=== PATIENT | female | born 1965 | race Caucasian/White ===

== ENCOUNTER 2018-03-11 13:33 | Emergency (ER) | payer MEDICAID, SELFPAY ==
[2018-03-11 13:34] VITALS: BP 138/77; PULSE 63; RESP 16; TEMP 36.5; O2SAT 95; BMI 48.9
--- NOTE | 2018-03-11 13:49 | RAD_ITS ---
STUDY: X-RAY - PELVIS AND RIGHT HIP REASON FOR EXAM: Female, 52 years old. Right-sided hip pain after fall. TECHNIQUE: Radiological exam, hip, unilateral, with pelvis when performed; 2 or 3 views. COMPARISON: Radiographs of pelvis and right hip dated May 08, 2016. FINDINGS: There is a non-specific bowel gas pattern. Normal visualized soft tissue structures. The sacrum and iliac wings are obscured by bowel gas. Normal bilateral superior and inferior pubic rami. There are degenerative changes of the pubic symphysis with articular narrowing and sclerosis. Normal bilateral ischial tuberosities. There are osteoarthritic changes of the femoral head with marginal osteophyte formation. There is osteoarthritic spur formation of the acetabular rim. There is mild articular joint space narrowing of the hip. RAD/Hip 2-3 Views with Pelvis IMPRESSION: 1. Degenerative arthropathy of both hips. 2. No radiographic evidence for acute fracture. 3. If there is still clinical concern for acute fracture, follow-up bone scan maybe helpful in evaluating a healing radiographically occult fracture. Electronically Signed: Licha Zaldivar MD at 14:46 EDT , Service support ,
--- NOTE | 2018-03-11 13:55 | ED.DCSUM_ITS ---
- ER Visit Summary Date of Service: 03/11/18 Chief Complaint: Mechanical fall History of Present Illness: The patient is a 52 F resents to the emergency department after mechanical fall. Patient states she was getting out of the bathtub and lost her balance. She fell landing on her right hip. She did not strike her head. She denies loss of consciousness. She states that she was stuck in the towels and cannot stand up because of her positioning. Her son was able to help her stand. She has been able to bear weight, but has had rather significant pain. She does not take anticoagulants. She denies any other injury. Physical Examination: M is relatively unremarkable. Patient does have tenderness to palpation over the greater trochanter. There is no pain with logroll. Pulses are normal. Pelvis stable. GCS is 15. Head is normocephalic , atraumatic. Neck is nontender with full range of motion. Heart regular rate and rhythm. Lungs clear. Abdomen soft. Extremities show chronic edema. Test Results: [] Emergency Department Course and Treatment: The patient underwent plain films of the hip and pelvis. There is no evidence of acute fracture. The patient was given oral [place]. The patient is already on tramadol and antispasmodics at home. She will continue these. She is able to bear weight. She will be discharged home. Treatment Plan: [] Disposition: Discharge Impression: 1. Right hip contusion status post fall This note was generated with [employer] dictation software. It may contain incorrect words, spelling, and punctuation that were not noted in review of the chart prior to signing ED Disposition - Plan for ED Patient: Chief Complaint: Fall Instructions: ED Mechanical Fall, ED Contusion Hip Referrals: Cristal Wolf MD [Primary Care Provider] -
[2018-03-11] MEDS: HYDROcodone Bitartrate/Apap 5/325 Tablet PO (14:08)
[2018-03-11 14:41] VITALS: BP 146/74; PULSE 63; RESP 18; O2SAT 96
== END 2018-03-11 14:48 | disposition home or self-care (01) ==
PROVIDERS: Emergency Provider Emergency Medicine; Family Provider Internal Medicine; PCP Internal Medicine
DX: S70.01XA Contusion of right hip, initial encounter (principal); W18.2XXA Fall in (into) shower or empty bathtub, initial encounter; Y93.E1 Activity, personal bathing and showering; Y92.002 Bathroom of unspecified non-institutional (private) residence as the place of occurrence of the external cause; Y99.9 Unspecified external cause status; E11.9 Type 2 diabetes mellitus without complications; I10 Essential (primary) hypertension; E78.00 Pure hypercholesterolemia, unspecified
CPT/HCPCS: 73502; 99282

== ENCOUNTER 2018-04-14 13:32 | Emergency (ER) | payer MEDICAID, SELFPAY ==
[2018-04-14 13:34] VITALS: BP 150/80; PULSE 72; RESP 16; TEMP 36.1; O2SAT 95; BMI 53.5
--- NOTE | 2018-04-14 14:07 | ED.DCSUM_ITS ---
- ER Visit Summary Date of Service: 04/14/18 Chief Complaint: [] Migraine headache History of Present Illness: The patient is a 52 F [] has a long history of migraine headaches she gets for the last week she has been suffering from a migraine headache typical of her usual but usually her's symptoms and headaches resolved with her nadolol and other home medications this 1 has not. She has had no fever no cough no runny nose no neck stiffness no numbness weakness paresthesias she does report that about a week ago she had a dizzy spell that resolved. She has had extensive prior evaluation for headaches including multiple brain images visits with headache specialist she has never been told she has a brain tumor or brain aneurysm she has COPD with stable and other than the headache she states she feels at her baseline Physical Examination: [] Her vital signs are within normal range she is in no distress her head exams unremarkable cranial nerve facial exam HEENT exam are negative the neck is very supple the lungs are clear the heart tones are normal the abdomen is soft nontender she is a very large woman abdomen shows no findings upper lower extremities are unremarkable cranial nerves motor exam are negative her NIH is 0 Test Results: [] Emergency Department Course and Treatment: [] Long conversation the patient the family I explained her we could obtain a CT brain imaging for life-threatening cause of the headache she declined that much she simply wants to be treated for the headache she was given morphine Zofran and she will follow with her family physicians I further explained her if she feels of these headaches are becoming more frequent and less responsive to oral home meds she should discuss with her physicians further management options and potential referral to neurology and she will do so Treatment Plan: [] Disposition: [] Home stable Impression: [] migraine headache by history This note was generated with [employer] dictation software. It may contain incorrect words, spelling, and punctuation that were not noted in review of the chart prior to signing ED Disposition - Plan for ED Patient: Chief Complaint: Headache Referrals: Cristal Wolf MD [Primary Care Provider] -
[2018-04-14] MEDS: Ondansetron ODT 4 MG Tablet PO (14:09)
[2018-04-14] MEDS: morphine 10 MG/ML Syringe IM (14:09)
--- NOTE | 2018-04-14 14:09 | ED.DEP ---
ED Disposition - Plan for ED Patient: Chief Complaint: Headache Instructions: ED Headache Migraine, ED Cephalgia Unspecified Referrals: Cristal Wolf MD [Primary Care Provider] -
[2018-04-14 14:45] VITALS: BP 150/94; PULSE 68; RESP 18; O2SAT 99
== END 2018-04-14 14:47 | disposition home or self-care (01) ==
LOC: ED 13:51
PROVIDERS: Emergency Provider Emergency Medicine; Family Provider Internal Medicine; PCP Internal Medicine
DX: G43.909 Migraine, unspecified, not intractable, without status migrainosus (principal); J44.9 Chronic obstructive pulmonary disease, unspecified
CPT/HCPCS: 99282

== ENCOUNTER 2018-04-17 17:07 | Emergency (ER) | payer MEDICAID, SELFPAY ==
[2018-04-17 17:08] VITALS: BP 168/100; PULSE 69; RESP 16; TEMP 36.8; O2SAT 97; BMI 53.6
--- NOTE | 2018-04-17 17:24 | CT_ITS ---
STUDY: CT BRAIN WITHOUT CONTRAST REASON FOR EXAM: Female, 52 years old. Status post fall blurry vision RADIATION DOSAGE (If Supplied By Facility): CTDIvol = ( 44.99 ) mGy, DLP = ( 796.11 ) mGycm TECHNIQUE: Transaxial CT imaging of the brain was performed without administration of intravenous contrast material. Individualized dose optimization techniques were used for this CT. COMPARISON: None. FINDINGS: Normal soft tissue structures. Normal calvarium. Normal size ventricles and extra-axial spaces for the patient's age. Normal white matter tracts of the cerebral hemispheres. Normal basal ganglia and thalami. Normal brainstem. Normal cerebellum. There are no findings of an acute ischemic infarction. Normal visualized paranasal sinuses. There is a rim of hyperdensity in the left side temporal region seen only on one view likely represents artifact rather than subdural hemorrhage. This is seen on image #12 of the axial views. CT/Brain/Head without Contrast IMPRESSION: There is a rim of hyperdensity in the left temporal extra-axial region which may represent a small subdural hematoma versus summation artifact. Given clinical history recommend short-term interval follow-up study. There is no significant associated edema. N.B. : The above information has been verbally conveyed by Edel Gallegos MD to , Covering Physician, on 04/17/2018 17:54:27 (ET). Electronically Signed: Edel Gallegos MD at 17:47 EDT Tel , Service support , N.B. : The above information has been verbally conveyed by Edel Gallegos MD to , Covering Physician, on 04/17/2018 17:54:27 (ET).
[2018-04-17] MEDS: Acetaminophen 500 MG Tablet 1000 MG PO (17:52)
[2018-04-17 19:07] VITALS: BP 92/81; RESP 18; O2SAT 98
[2018-04-17 20:41] LABS: Absolute Lymphocyte Count 0.83 X10^3/ul (0.83-4.51); Absolute Neutrophil Count 3.8 X10^3/uL (2.0-7.7); Hematocrit 35.6 % (37-47); Hemoglobin 11.2 g/dl (12.0-15.0); Lymphocyte # 0.83 X10^3/ul (4.0); Lymphocyte % 16.2 % (19-41); Mean Corp Hgb Conc 31.5 g/gl (32-36); Mean Corpuscular Hgb 25.5 pg (27.0-32.0); Mean Corpuscular Volume 81.1 fL (81-99); Mean Platelet Vol. 8.9 fl (6.2-12.0); Monocyte# 0.46 X10^3/uL; Neutrophil # 3.83 X10^3/uL (2.7-7.7); Neutrophil % 74.6 % (47-70); Platelet Count 133 K/mm3 (150-450); RBC Distribution Width CV 15.8 % (11.6-14.6); RBC Distribution Width SD 47.4 fl (35.1-43.9); Red Blood Count 4.39 M/mm3 (4.2-5.4); White Blood Count 5.1 K/mm3 (4.4-11.0)
[2018-04-17 20:48] LABS: POSITIVE COUNT NO; POSITIVE DIFFERENTIAL NO; POSITIVE MORPHOLOGY NO
[2018-04-17 20:52] LABS: International Normalized Ratio 1.1; Partial Thromboplast Time 30.1 Seconds (24.1-36.2); Prothrombin Time (Protime)PT. 13.9 SECONDS (11.7-14.9)
[2018-04-17 20:56] LABS: Anion Gap 8 (5-15); BUN 14 mg/dL (7-18); BUN/Creat Ratio 19.2 RATIO (10-20); Calcium,Total 8.7 mg/dL (8.5-10.1); Chloride 102 mmol/L (98-107); Creatinine, Serum 0.73 mg/dL (0.55-1.02); EST Glomerular Filtration Rate 88 mL/min (>60); Est Glom Filt Rate - Afr Amer 107 mL/min (>60); Estimated Creatinine Clearance 79.28 ml/min; Glucose 147 mg/dL (74-106); Sodium Level 138 mmol/L (136-145)
[2018-04-17 21:00] VITALS: PULSE 71; RESP 16; O2SAT 97
--- NOTE | 2018-04-17 21:04 | ED.VISSUMM ---
- ER Visit Summary Date of Service: 04/17/18 Chief Complaint: Head injury History of Present Illness: The patient is a 52 F who states that yesterday she hit the left frontal aspect of her head on the car door. No loss of consciousness. Patient states she continues to have headache and double vision. She states that at times she has felt confused. She is not on any blood thinners. There is been no vomiting. Physical Examination: Afebrile vital signs are stable Gen: Well-nourished well-developed Head: Normocephalic infraorbital contusion noted on the left Eyes: Perrl EOMI ENT: TMs clear no rhinorrhea moist mucous membranes Neck: Supple no lymphadenopathy no JVD nontender CVS: Regular rate rhythm no murmurs normal S1-S2 Respiratory: No distress clear to auscultation bilaterally chest nontender Abdomen: Soft nontender nondistended normal bowel sounds no masses Back: Nontender Extremity: Nontender no edema Skin: Normal color no rash Neuro: alert orientated ?3 CN II-XII intact normal strength sensation reflexes gait cerebellar Psych: Normal affect normal mood Test Results: Coags normal. CT the head demonstrated a possible left temporal subdural versus artifact. Emergency Department Course and Treatment: Patient tells me she has had an MRI before. MRI is available to do 1. They took her to MRI and the patient was unable to tolerate the MRI due to claustrophobia. Patient requests transfer to [facility] as she does not wish to go to [facility]. I spoke with the emergency room there and they will evaluate the patient when she gets there. Impression: 1. Concussion 2. Periorbital contusion 3. Possible subdural hematoma This note was generated with [employer] dictation software. It may contain incorrect words, spelling, and punctuation that were not noted in review of the chart prior to signing ED Disposition - Plan for ED Patient: Chief Complaint: Head Injury Referrals: Cristal Wolf MD [Primary Care Provider] -
--- NOTE | 2018-04-17 21:07 | ED.DCSUM_ITS ---
- ER Visit Summary Date of Service: 04/17/18 Chief Complaint: Head injury History of Present Illness: The patient is a 52 F who states that yesterday she hit the left frontal aspect of her head on the car door. No loss of consciousness. Patient states she continues to have headache and double vision. She states that at times she has felt confused. She is not on any blood thinners. There is been no vomiting. Physical Examination: Afebrile vital signs are stable Gen: Well-nourished well-developed Head: Normocephalic infraorbital contusion noted on the left Eyes: Perrl EOMI ENT: TMs clear no rhinorrhea moist mucous membranes Neck: Supple no lymphadenopathy no JVD nontender CVS: Regular rate rhythm no murmurs normal S1-S2 Respiratory: No distress clear to auscultation bilaterally chest nontender Abdomen: Soft nontender nondistended normal bowel sounds no masses Back: Nontender Extremity: Nontender no edema Skin: Normal color no rash Neuro: alert orientated ?3 CN II-XII intact normal strength sensation reflexes gait cerebellar Psych: Normal affect normal mood Test Results: Coags normal. CT the head demonstrated a possible left temporal subdural versus artifact. Emergency Department Course and Treatment: Patient tells me she has had an MRI before. MRI is available to do 1. They took her to MRI and the patient was unable to tolerate the MRI due to claustrophobia. Patient requests transfer to [facility] as she does not wish to go to [facility]. I spoke with the emergency room there and they will evaluate the patient when she gets there. Impression: 1. Concussion 2. Periorbital contusion 3. Possible subdural hematoma This note was generated with [employer] dictation software. It may contain incorrect words, spelling, and punctuation that were not noted in review of the chart prior to signing ED Disposition - Plan for ED Patient: Chief Complaint: Head Injury Referrals: Cristal Wolf MD [Primary Care Provider] -
[2018-04-17 21:41] VITALS: BP 155/89; PULSE 74; RESP 18; O2SAT 98
== END 2018-04-17 22:03 | disposition short-term general hospital (02) ==
LOC: ED 17:57
PROVIDERS: Emergency Provider Emergency Medicine; Family Provider Internal Medicine; PCP Internal Medicine
DX: S06.0X0A Concussion without loss of consciousness, initial encounter (principal); S00.12XA Contusion of left eyelid and periocular area, initial encounter; S06.5X0A Traumatic subdural hemorrhage without loss of consciousness, initial encounter; W22.8XXA Striking against or struck by other objects, initial encounter; Y93.9 Activity, unspecified; Y92.9 Unspecified place or not applicable; E66.9 Obesity, unspecified; J44.9 Chronic obstructive pulmonary disease, unspecified; K21.9 Gastro-esophageal reflux disease without esophagitis; E11.9 Type 2 diabetes mellitus without complications; I10 Essential (primary) hypertension; F31.9 Bipolar disorder, unspecified; Z90.710 Acquired absence of both cervix and uterus; Z79.84 Long term (current) use of oral hypoglycemic drugs; Z79.899 Other long term (current) drug therapy
CPT/HCPCS: 70450; 80048; 85025; 85610; 85730; 99284; A4216

== ENCOUNTER 2018-05-29 12:24 | Emergency (ER) | payer MEDICAID, SELFPAY ==
[2018-05-29 12:25] VITALS: BP 166/111; PULSE 81; RESP 18; TEMP 37.1; O2SAT 98; BMI 52.7
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
--- NOTE | 2018-05-29 13:51 | RAD_ITS ---
STUDY: X-RAY CHEST REASON FOR EXAM: Female, 52 years old. Nonproductive cough TECHNIQUE: PA and lateral views of the chest. COMPARISON: 09/10/2017 FINDINGS: Stable chronic elevation of the right hemidiaphragm There are interstitial fibrotic changes of the lungs. There is no demonstrated pleural abnormality. Normal size heart. Normal mediastinum and keli. Normal visualized pulmonary arteries. Normal visualized aortic arch and descending thoracic aorta. There are diffuse degenerative changes of the visualized thoracic spine. There is degenerative osteoarthritis of the bilateral shoulders. There is no demonstrated abnormality of the visualized soft tissue structures of the upper abdomen. RAD/Chest PA and Lateral IMPRESSION: Chronic interstitial changes, no superimposed acute pulmonary process, no significant interval change Electronically Signed: Akshat Roth MD at 14:07 EDT , Service support ,
[2018-05-29 13:55] LABS: Absolute Lymphocyte Count 0.84 X10^3/ul (0.83-4.51); Absolute Neutrophil Count 4.1 X10^3/uL (2.0-7.7); Hematocrit 38.8 % (37-47); Hemoglobin 12.1 g/dl (12.0-15.0); Lymphocyte # 0.84 X10^3/ul (4.0); Lymphocyte % 15.5 % (19-41); Mean Corp Hgb Conc 31.2 g/gl (32-36); Mean Corpuscular Hgb 26.1 pg (27.0-32.0); Mean Corpuscular Volume 83.6 fL (81-99); Mean Platelet Vol. 9.2 fl (6.2-12.0); Monocyte# 0.46 X10^3/uL; Monocyte% 8.5 % (0-10); Neutrophil % 75.8 % (47-70); Platelet Count 164 K/mm3 (150-450); RBC Distribution Width CV 15.4 % (11.6-14.6); RBC Distribution Width SD 46.7 fl (35.1-43.9); Red Blood Count 4.64 M/mm3 (4.2-5.4); White Blood Count 5.4 K/mm3 (4.4-11.0)
[2018-05-29 13:56] LABS: POSITIVE COUNT NO; POSITIVE DIFFERENTIAL NO; POSITIVE MORPHOLOGY NO
[2018-05-29 14:19] LABS: Lactic Acid 1.5 mmol/L (0.4-2.0)
[2018-05-29 14:22] LABS: ALB/GLOB Ratio 0.9 RATIO (0.9-2.4); AST(SGOT) 22 U/L (15-37); Alanine Aminotransfer ALT/SGPT 40 U/L (13-56); Albumin, Serum 3.5 g/dL (3.2-5.0); Alkaline Phosphatase 65 U/L (45-117); Anion Gap 8 (5-15); BUN 12 mg/dL (7-18); Chloride 100 mmol/L (98-107); Creatinine, Serum 0.75 mg/dL (0.55-1.02); EST Glomerular Filtration Rate 86 mL/min (>60); Est Glom Filt Rate - Afr Amer 104 mL/min (>60); Estimated Creatinine Clearance 77.16 ml/min; Globulin 3.9 g/dL (2.2-4.2); Glucose 173 mg/dL (74-106); Potassium 4.3 mmol/L (3.5-5.1); Protein, Total 7.4 g/dL (6.4-8.2); Sodium Level 138 mmol/L (136-145)
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
[2018-05-29 15:45] VITALS: BP 141/76; PULSE 68; RESP 15; O2SAT 98
== END 2018-05-29 15:45 | disposition home or self-care (01) ==
PROVIDERS: Emergency Provider Emergency Medicine; Family Provider Internal Medicine; PCP Internal Medicine
DX: L03.116 Cellulitis of left lower limb (principal); A49.01 Methicillin susceptible Staphylococcus aureus infection, unspecified site; E66.9 Obesity, unspecified; E11.9 Type 2 diabetes mellitus without complications; I10 Essential (primary) hypertension; I50.9 Heart failure, unspecified; M79.7 Fibromyalgia; F32.9 Major depressive disorder, single episode, unspecified; F41.9 Anxiety disorder, unspecified
CPT/HCPCS: 36415; 71046; 73590; 80053; 83605; 85025; 87040; 99283; J7030

== ENCOUNTER 2018-06-27 16:05 | Emergency (ER) | payer MEDICAID, SELFPAY ==
[2018-06-27 16:07] VITALS: PULSE 69; RESP 16; TEMP 37.1; O2SAT 100; BMI 53.4
[2018-06-27 16:08] VITALS: BP 174/106
[2018-06-27 16:24] VITALS: BP 189/97
--- NOTE | 2018-06-27 16:42 | RAD_ITS ---
STUDY: X-RAY CHEST REASON FOR EXAM: Female, 52 years old. History of COPD. Shortness of breath with exertion. TECHNIQUE: PA and lateral views of the chest. COMPARISON: May 29, 2018. FINDINGS: There is persistent elevation of the right hemidiaphragm. Minimal atelectatic changes at both lung bases. There is no new mass or infiltrate. There is no demonstrated pleural abnormality. Normal size heart. Normal mediastinum and keli. Normal visualized pulmonary arteries. There is minimal atherosclerotic calcification of the aortic arch with tortuosity. There are diffuse degenerative changes of the visualized thoracic spine. There is degenerative osteoarthritis of the bilateral shoulders. There is no demonstrated abnormality of the visualized soft tissue structures of the upper abdomen. RAD/Chest PA and Lateral IMPRESSION: Elevated right hemidiaphragm with bibasilar atelectasis. There is no major interval change. Electronically Signed: Duane Riggs DO at 17:12 EDT Tel [phone], Service support ,
[2018-06-27 17:09] VITALS: BP 185/103; PULSE 69; RESP 16; O2SAT 97
[2018-06-27] MEDS: Ipratropium/Albuterol Sulfate 3 ML AMPUL.NEB INHALATION (17:22)
[2018-06-27] MEDS: Albuterol 2.5 MG/3 ML VIAL.NEB. INHALATION ×3 (17:22→17:23)
[2018-06-27] MEDS: MethylPREDNISolone 125 MG/2 ML Vial IV (17:23)
[2018-06-27 17:25] VITALS: PULSE 75; RESP 21; O2SAT 98
[2018-06-27 17:38] LABS: Absolute Lymphocyte Count 0.99 X10^3/ul (0.83-4.51); Absolute Neutrophil Count 3.8 X10^3/uL (2.0-7.7); Hematocrit 38.1 % (37-47); Hemoglobin 12.2 g/dl (12.0-15.0); Lymphocyte # 0.99 X10^3/ul (4.0); Lymphocyte % 18.9 % (19-41); Mean Corpuscular Hgb 27.1 pg (27.0-32.0); Mean Corpuscular Volume 84.7 fL (81-99); Mean Platelet Vol. 9.3 fl (6.2-12.0); Monocyte% 9.5 % (0-10); Neutrophil # 3.76 X10^3/uL (2.7-7.7); Neutrophil % 71.6 % (47-70); Platelet Count 129 K/mm3 (150-450); RBC Distribution Width CV 15.4 % (11.6-14.6); RBC Distribution Width SD 47.3 fl (35.1-43.9); White Blood Count 5.3 K/mm3 (4.4-11.0)
[2018-06-27 17:41] LABS: POSITIVE COUNT NO; POSITIVE DIFFERENTIAL NO; POSITIVE MORPHOLOGY NO
[2018-06-27 18:06] LABS: Anion Gap 9 (5-15); BUN 13 mg/dL (7-18); BUN/Creat Ratio 15.6 RATIO (10-20); Calcium,Total 8.7 mg/dL (8.5-10.1); Chloride 104 mmol/L (98-107); Creatinine, Serum 0.83 mg/dL (0.55-1.02); EST Glomerular Filtration Rate 76 mL/min (>60); Est Glom Filt Rate - Afr Amer 91 mL/min (>60); Estimated Creatinine Clearance 69.72 ml/min; Glucose 221 mg/dL (74-106); Potassium 4.1 mmol/L (3.5-5.1); Sodium Level 142 mmol/L (136-145)
--- NOTE | 2018-06-27 18:11 | ED.DCSUM_ITS ---
- ER Visit Summary Date of Service: 06/27/18 Chief Complaint: COPD exacerbation History of Present Illness: The patient is a 52 F with a history of COPD, on 2 L of oxygen at nighttime presents with 3 days of cough productive of yellow sputum and increased wheezing. She denies chest pain or lower extremity swelling/pain. Denies recent travel or immobilization. She believes that this flareup is triggered by a respiratory infection. She states that she feels fine when she is at rest but she has increased wheezing with exertion. No diaphoresis or other atypical cardiac type symptoms. Current severity is minimal because she is at rest Physical Examination: Vitals are essentially within normal limits except for slight hypertension. Pulse oximetry is 97% on room air. She is not tachycardic. She does have wheezing in all lung hester but is not in significant respiratory distress. Abdomen is soft and nontender. No tenderness along the lower extremity venous system, swelling, or palpable cords. Test Results: Chest x-ray is negative for infiltrate. Labs are essentially within normal limits. She is slightly hypertensive but her other vital signs are within normal limits. She has no headache or chest pain related to this and her creatinine is normal. No evidence of endorgan damage. Neurologic exam is normal. Emergency Department Course and Treatment: He was given IV Solu-Medrol and breathing treatments. On reexamination she feels at baseline. She is not symptomatic with exertion. She feels well enough to go home. She will be placed on doxycycline because she has had a change in her sputum production pattern as well as prednisone and follow-up closely with her doctor. I also asked her to keep a diary of her blood pressures at home and address this with her doctor. She will return if she has any worse. Treatment Plan: Oral antibiotics and steroids Disposition: Home stable condition Impression: Initial encounter COPD exacerbation secondary to lower respiratory tract infection This note was generated with [employer] dictation software. It may contain incorrect words, spelling, and punctuation that were not noted in review of the chart prior to signing ED Disposition - Plan for ED Patient: Chief Complaint: Shortness of Breath Diagnosis: COPD Instructions: ED COPD Flare Prescriptions: Prednisone [Deltasone] 40 mg PO DAILY #10 tablet Doxycycline Monohydrate 100 mg PO BID #20 capsule Referrals: Cristal Wolf MD [Primary Care Provider] - 1 Day
--- NOTE | 2018-06-27 18:13 | ED.DCSUM_ITS ---
- ER Visit Summary Date of Service: 06/27/18 Chief Complaint: [] History of Present Illness: The patient is a 52 F [] Physical Examination: [] Test Results: [] Emergency Department Course and Treatment: [] Treatment Plan: [] Disposition: [] Impression: [] This note was generated with [employer] dictation software. It may contain incorrect words, spelling, and punctuation that were not noted in review of the chart prior to signing ED Disposition - Plan for ED Patient: Chief Complaint: Shortness of Breath Diagnosis: COPD Instructions: ED COPD Flare Prescriptions: Prednisone [Deltasone] 40 mg PO DAILY #10 tablet Doxycycline Monohydrate 100 mg PO BID #20 capsule Referrals: Cristal Wolf MD [Primary Care Provider] - 1 Day
[2018-06-27 18:24] VITALS: BP 190/97; PULSE 71; RESP 18; O2SAT 97
[2018-06-27] MEDS: Doxycycline 100 MG CAPSULE PO (18:25)
--- NOTE | 2018-06-28 16:09 | CM.ED ---
ED CALLBACK: Follow-up call placed to patient. Voicemail left with return contact information.
--- NOTE | 2018-06-28 16:30 | CM.ED ---
Patient returned call stating that she has had a headache all day. She states that she was awake all night and forgot to take her blood pressure medicine in the morning. Her most recent blood pressure is 189/114. She did take her blood pressure medication at 1600 and called her PCP. According to patient, her PCP recommended her to come to ED for evaluation. The patient states that she is afraid to be admitted because her employer told her she would lose her job if she's hospitalized again. I strongly encouraged the patient to come to ED for evaluation and treatment. We discussed that this does not mean she will necessarily need to be admitted and that she is always able to leave at any time. Patient states understanding and that she would like to wait and see if her blood pressures lower now that she's taken her medication. I, once again, encouraged the patient to come to ED immediately. I informed the patient that I will be available for callback until 1730, should she have any questions or updates. Patient states understanding. Patient states that she will wait, but if her blood pressures remain elevated or rise she will come back to the ED.
--- NOTE | 2018-06-29 09:28 | CM.ED ---
Call placed to patient this morning, 06-29-18, to see how patient is feeling, blood pressures, symptoms. No answer at this time. I left a voicemail requesting patient call me back, including return contact information.
--- NOTE | 2018-06-29 09:35 | CM.ED ---
Patient returned call stating that she plans to come to the ED today. She states that yesterday her blood pressure did go down to 156/98 and her headache subsided. However, she states that today she is developing a headache again and her blood pressure is now 189/110. Patient states, I can just tell that something is wrong. Patient states that if she needs to be admitted to the hospital she is agreeable.
== END 2018-06-27 18:25 | disposition home or self-care (01) ==
PROVIDERS: Emergency Provider Emergency Medicine; Family Provider Internal Medicine; PCP Internal Medicine
DX: J44.1 Chronic obstructive pulmonary disease with (acute) exacerbation (principal); J44.0 Chronic obstructive pulmonary disease with (acute) lower respiratory infection; J98.8 Other specified respiratory disorders; E11.9 Type 2 diabetes mellitus without complications; I10 Essential (primary) hypertension; E78.00 Pure hypercholesterolemia, unspecified; F31.9 Bipolar disorder, unspecified; Z99.81 Dependence on supplemental oxygen
CPT/HCPCS: 71046; 80048; 85025; 93005; 94640; 99285; A4216

== ENCOUNTER 2018-06-29 14:49 | Emergency (ER) | payer MEDICAID, SELFPAY ==
[2018-06-29] VITALS (7 sets, daily range): BP systolic 152–171; BP diastolic 75–96; PULSE 64–72; RESP 18–24; TEMP 36.5; O2SAT 94–96; BMI 54.0
--- NOTE | 2018-06-29 15:07 | CT_ITS ---
STUDY: CT BRAIN WITHOUT CONTRAST REASON FOR EXAM: Female, 52 years old. Headache RADIATION DOSAGE (If Supplied By Facility): CTDIvol = ( 44.99 ) mGy, DLP = ( 812.98 ) mGycm TECHNIQUE: Transaxial CT imaging of the brain was performed without administration of intravenous contrast material. Individualized dose optimization techniques were used for this CT. COMPARISON: 04/17/2018 FINDINGS: There is no acute bleed or infarct. There are normal white matter tracts. The ventricles are normal in configuration. There is no hydrocephalus. The visualized paranasal sinuses are clear. The mastoid air cells are well aerated. There is no skull fracture. CT/Brain/Head without Contrast IMPRESSION: No acute intracranial abnormality. Electronically Signed: Chace Queen, at 17:11 EDT Tel , Service support ,
--- NOTE | 2018-06-29 15:13 | ED.VIS.GEN ---
History of Present Illness Chief Complaint: Hypertension Informant: Patient Onset: Days - several Context: Gradual Onset Timing: Continuous Quality: ache Location: bifrontal headache Current Severity: Moderate Maximum Severity: Moderate Worsened by: nothing Relieved by: nothing Associated Symptoms: blurry vision, chest tightness, copd sx Narrative: Patient states she has been having a headache for several days, now having blurry vision with that. She has history of migraines but states this does not feel like a migraine. It is mostly bifrontal. Seems to be worse when her blood pressure is high, she has detected it into the 200s last couple days. Earlier today it was 148/114. She states her systolic is usually in the 120s. She has been compliant with her blood pressure medications. She was seen here 2 days ago for a COPD exacerbation, states that she is not a whole lot better, her chest tightness gets better with her albuterol inhalers. She was placed on doxycycline and prednisone and her symptoms seem worse since then. Blood sugars been in the 200s and she is urinating more frequently, that is high for her. - Past Medical History (1) HTN (hypertension) Status: Chronic (2) ADHD (attention deficit hyperactivity disorder) Status: Chronic (3) Benign hypertension Status: Chronic (4) Bipolar disorder Status: Chronic (5) COPD Status: Chronic (6) GERD (gastroesophageal reflux disease) Status: Chronic (7) Migraines Status: Chronic (8) Pain syndrome, chronic Status: Chronic (9) Stasis dermatitis of both legs Status: Chronic (10) Type II diabetes mellitus Status: Chronic (11) Venous insufficiency of both lower extremities Status: Chronic (12) Obstructive sleep apnea Status: Chronic Past Medical History - Allergies and Home Meds Allergies/Adverse Reactions: Allergies cefazolin sodium [From [facility]] Allergy (Verified 06/29/18 14:51) Hives Penicillins Allergy (Verified 06/29/18 14:51) Hives Primary Care Physician: Cristal Wolf MD [Primary Care Provider] - Surgical History: herniorrhaphy, hysterectomy, - - tubes in ears, knee scopes, dr malik for left anterior leg wound, hernia repair, carpal tunnel surgery bilateral Smoking Status: Never smoker - Family History Maternal Family History: Family History (Last Updated 02/18/18 @ 13:39 by Vida Gunn) Other Hypertension Kidney disease Family History: Reports: Heart Disease, Hypertension, Stroke Paternal Family History: Family History (Last Updated 02/18/18 @ 13:39 by Vida Gunn) Other Hypertension Kidney disease Family History: Reports: Hypertension, Stroke, - Review of Systems All systems negative except as indicated Eyes: Reports: Blurred Vision - bilaterally Cardiovascular: Reports: Chest pain Respiratory: Reports: Dyspnea - wheezing, Cough, Sputum Gastrointestinal: Denies: Abdominal pain, Nausea, Vomiting, Diarrhea Genitourinary: Reports: Frequency. Denies: Dysuria, Hematuria Musculoskeletal: Reports: Myalgias, Swelling - chronic BLE. Denies: Extremity Pain Neurological: Reports: Headache. Denies: Weakness, Parasthesia, Numbness Physical Exam Vital Signs/Narrative: Vital Signs Temp Pulse Resp BP Pulse Ox 06/29/18 14:51 97.7 F L 72 18 171/94 H 94 Inital Vital Signs reviewed: Yes General: Well nourished, Well developed, Obese, - - nad Head: Normocephalic, Atraumatic Eyes: Perrl, EOMI ENT: Moist mucous membranes, No rhinorrhea Neck: Supple, Nontender, No JVD Cardiovascular: Regular rate, Regular rhythm, No murmurs Respiratory: No distress, CTA bilaterally, Chest nontender, Diminished - throughout, symmetrically Abdomen: Soft, Nontender, Nondistended, Normal bowel sounds Back: Nontender, Normal Inspection Extremities: Nontender, Edema - BLE w/ dark discoloration distal legs, c/w chronic stasis dermatitis Skin: Normal color, No rash Neurological: Alert, Oriented x3, Cranial nerves II-XII grossly intact, Normal Strength, Normal Sensation Psychological: Normal affect Diagnostic/Tx/Re-eval Impressions Brain CT 06/29/18 15:07 IMPRESSION: No acute intracranial abnormality. Electronically Signed: Chace Queen, at 17:11 EDT Tel , Service support , Chest X-Ray 06/29/18 15:20 IMPRESSION: Elevated stable elevation of the right hemidiaphragm with overlying atelectasis. Otherwise, clear lungs. Electronically Signed: Chace Queen, at 16:52 EDT Tel , Service support , 06/29/18 15:07 Brain/Head without Contrast [CT] Stat 06/29/18 15:20 Chest 1 View (Portable) [RAD] Stat Laboratory Results 06/29/18 06/29/18 06/29/18 Range/Units 16:20 16:20 16:20 WBC 7.1 (4.4-11.0) K/mm3 RBC 4.43 (4.2-5.4) M/mm3 Hgb 11.8 L (12.0-15.0) g/dl Hct 37.6 (37-47) % MCV 84.9 (81-99) fL MCH 26.6 L (27.0-32.0) pg MCHC 31.4 L (32-36) g/gl RDW 15.6 H (11.6-14.6) % RDW Differential 48.2 H (35.1-43.9) fl Plt Count 156 (150-450) K/mm3 MPV 9.4 (6.2-12.0) fl Immature Gran % (Auto) 0.100 (0.0-0.9) % Neut % (Auto) 71.3 H (47-70) % Lymph % (Auto) 20.6 (19-41) % [place] % (Auto) 7.9 (0-10) % Eos % (Auto) 0.0 (0-5) % Baso % (Auto) 0.1 (0-1) % Absolute Neuts (auto) 5.1 (2.0-7.7) X10^3/uL Absolute Lymphs (auto) 1.47 (0.83-4.51) X10^3/ul Total Counted Not Reportable Sodium 139 (136-145) mmol/L Potassium 4.0 (3.5-5.1) mmol/L Chloride 105 (98-107) mmol/L Carbon Dioxide 25.0 (21.0-32.0) mmol/L Anion Gap 9 (5-15) BUN 21 H (7-18) mg/dL Creatinine 0.81 (0.55-1.02) mg/dL Estim Creat Clear Calc 71.45 ml/min Est GFR (MDRD) Af Amer 94 (>60) mL/min Est GFR (MDRD) Non-Af 78 (>60) mL/min BUN/Creatinine Ratio 25.9 H (10-20) RATIO Glucose 189 H (74-106) mg/dL Calcium 8.8 (8.5-10.1) mg/dL Troponin I < 0.015 (<0.045) ng/mL Urine Color Yellow (Yellow) Urine Clarity Clear (Clear) Urine pH 6.0 (5.0 - 8.0) Ur Specific Hawley 1.020 (1.002-1.030) Urine Protein 15 H (Negative) mg/dl Urine Glucose (UA) Normal (Normal) mg/dl Urine Ketones 5 H (Negative) mg/dl Urine Occult Blood 25 H (Negative) /ul Urine Nitrite Negative (Negative) Urine Bilirubin Negative (Negative) mg/dL Urine Urobilinogen Normal (Normal) mg/dl Ur Leukocyte Esterase 25 H (Negative) /ul Urine RBC 0-5 SEEN (0-5) /hpf Urine WBC 0-5 SEEN (0-5) /hpf Ur Squamous Epith Cells 0 SEEN (5-10) /hpf Urine Bacteria 0 SEEN (None Seen) /hpf Urine Mucus 0 SEEN (<or=2+) /hpf POC Glucose (70-110) mg/dL 06/29/18 Range/Units 16:26 WBC (4.4-11.0) K/mm3 RBC (4.2-5.4) M/mm3 Hgb (12.0-15.0) g/dl Hct (37-47) % MCV (81-99) fL MCH (27.0-32.0) pg MCHC (32-36) g/gl RDW (11.6-14.6) % RDW Differential (35.1-43.9) fl Plt Count (150-450) K/mm3 MPV (6.2-12.0) fl Immature Gran % (Auto) (0.0-0.9) % Neut % (Auto) (47-70) % Lymph % (Auto) (19-41) % [place] % (Auto) (0-10) % Eos % (Auto) (0-5) % Baso % (Auto) (0-1) % Absolute Neuts (auto) (2.0-7.7) X10^3/uL Absolute Lymphs (auto) (0.83-4.51) X10^3/ul Total Counted Sodium (136-145) mmol/L Potassium (3.5-5.1) mmol/L Chloride (98-107) mmol/L Carbon Dioxide (21.0-32.0) mmol/L Anion Gap (5-15) BUN (7-18) mg/dL Creatinine (0.55-1.02) mg/dL Estim Creat Clear Calc ml/min Est GFR (MDRD) Af Amer (>60) mL/min Est GFR (MDRD) Non-Af (>60) mL/min BUN/Creatinine Ratio (10-20) RATIO Glucose (74-106) mg/dL Calcium (8.5-10.1) mg/dL Troponin I (<0.045) ng/mL Urine Color (Yellow) Urine Clarity (Clear) Urine pH (5.0 - 8.0) Ur Specific Hawley (1.002-1.030) Urine Protein (Negative) mg/dl Urine Glucose (UA) (Normal) mg/dl Urine Ketones (Negative) mg/dl Urine Occult Blood (Negative) /ul Urine Nitrite (Negative) Urine Bilirubin (Negative) mg/dL Urine Urobilinogen (Normal) mg/dl Ur Leukocyte Esterase (Negative) /ul Urine RBC (0-5) /hpf Urine WBC (0-5) /hpf Ur Squamous Epith Cells (5-10) /hpf Urine Bacteria (None Seen) /hpf Urine Mucus (<or=2+) /hpf POC Glucose 178 H (70-110) mg/dL - Rhythm Strip Rhythm Strip: Sinus Tach Rate: 65 Ectopy: None - EKG Initial EKG Interpretation: Sinus Rhythm, No Acute Injury Pattern, Inverted T-Waves - throughout precordium and inf, - - nml axis and intervals - Medical Decision Making Labs are unremarkable except for blood sugar 189 and mild prerenal azotemia, along with unremarkable urinalysis, chest x-ray, CT head. With bringing her blood pressure down to the 150s with a dose of clonidine, her headache is no different. It may not be related to her blood pressure, or the discomfort could be causing her blood pressure to be transiently elevated. Regardless, there is no evidence of endorgan damage. She developed some nausea which was successfully treated with Zofran. She will be discharged home but prior, we will treat her headache at her request with Reglan and a half dose of Toradol to see if that helps. Encouraged to follow-up with her doctor for recheck. ED Disposition - Plan for ED Patient: Disposition: Home or Assisted Living Chief Complaint: Hypertension Diagnosis: Accelerated hypertension, Cephalgia, Hyperglycemia due to type 2 diabetes mellitus Instructions: ED Hypertension Conf Out Of Control Referrals: Cristal Wolf MD [Primary Care Provider] - 3-5 Days
--- NOTE | 2018-06-29 15:20 | RAD_ITS ---
STUDY: X-RAY CHEST REASON FOR EXAM: Female, 52 years old. Chest pain TECHNIQUE: Frontal view of the chest COMPARISON: 06/27/2018. FINDINGS: There is stable elevation of the right hemidiaphragm with overlying atelectasis. The lungs are otherwise clear. There are no pleural effusions. There is no pneumothorax. The heart is normal in size. The visualized osseous structures are within normal limits. RAD/Chest 1 View (Portable) IMPRESSION: Elevated stable elevation of the right hemidiaphragm with overlying atelectasis. Otherwise, clear lungs. Electronically Signed: Chace Queen, at 16:52 EDT Tel , Service support ,
[2018-06-29] MEDS: cloNIDine HCl 0.1 MG Tablet PO (15:31)
[2018-06-29] MEDS: Ipratropium/Albuterol Sulfate 3 ML AMPUL.NEB INHALATION (15:36)
[2018-06-29 16:30] LABS: Absolute Lymphocyte Count 1.47 X10^3/ul (0.83-4.51); Absolute Neutrophil Count 5.1 X10^3/uL (2.0-7.7); Basophil# 0.01 X10^3/uL; Basophil% 0.1 % (0-1); Hematocrit 37.6 % (37-47); Hemoglobin 11.8 g/dl (12.0-15.0); Lymphocyte # 1.47 X10^3/ul (4.0); Lymphocyte % 20.6 % (19-41); Mean Corp Hgb Conc 31.4 g/gl (32-36); Mean Corpuscular Hgb 26.6 pg (27.0-32.0); Mean Corpuscular Volume 84.9 fL (81-99); Mean Platelet Vol. 9.4 fl (6.2-12.0); Monocyte# 0.56 X10^3/uL; Monocyte% 7.9 % (0-10); Neutrophil # 5.08 X10^3/uL (2.7-7.7); Neutrophil % 71.3 % (47-70); Platelet Count 156 K/mm3 (150-450); RBC Distribution Width CV 15.6 % (11.6-14.6); RBC Distribution Width SD 48.2 fl (35.1-43.9); Red Blood Count 4.43 M/mm3 (4.2-5.4); White Blood Count 7.1 K/mm3 (4.4-11.0)
[2018-06-29 16:35] LABS: Bedside Glucose 178 mg/dL (70-110)
[2018-06-29 16:36] LABS: POSITIVE COUNT NO; POSITIVE DIFFERENTIAL NO; POSITIVE MORPHOLOGY NO
[2018-06-29 16:48] LABS: Anion Gap 9 (5-15); BUN 21 mg/dL (7-18); BUN/Creat Ratio 25.9 RATIO (10-20); Calcium,Total 8.8 mg/dL (8.5-10.1); Chloride 105 mmol/L (98-107); Creatinine, Serum 0.81 mg/dL (0.55-1.02); EST Glomerular Filtration Rate 78 mL/min (>60); Est Glom Filt Rate - Afr Amer 94 mL/min (>60); Estimated Creatinine Clearance 71.45 ml/min; Glucose 189 mg/dL (74-106); Sodium Level 139 mmol/L (136-145)
[2018-06-29 18:11] LABS: Bacteria 0 SEEN /hpf (None Seen); Mucous, Urine 0 SEEN /hpf (<or=2+); Squamous Epithelial Cells - UA 0 SEEN /hpf (5-10)
[2018-06-29 18:26] LABS: Color, Urine Yellow (Yellow); Glucose, Dipstick Normal (Normal); Ketone-Dipstick 5 mg/dl (Negative); Leukocyte Esterase-Dipstick 25 /ul (Negative); Nitrite-Dipstick Negative (Negative); Occult Blood-Urine 25 /ul (Negative); Protein-Dipstick 15 mg/dl (Negative); Urine Bilirubin Dipstick Negative (Negative); Urine Clarity Clear (Clear); Urine Urobilinogen Normal (Normal)
[2018-06-29 18:36] LABS: Red Blood Cells-Urine 0-5 SEEN /hpf (0-5); White Blood Cells 0-5 SEEN /hpf (0-5)
[2018-06-29] MEDS: Ondansetron 4 MG/2 ML Vial IV (18:36)
[2018-06-29] MEDS: Ketorolac 15 MG/ML Vial IV (19:40)
[2018-06-29] MEDS: Metoclopramide 10 MG/2 ML Vial 5 MG IV (19:40)
== END 2018-06-29 20:08 | disposition home or self-care (01) ==
PROVIDERS: Emergency Provider Emergency Medicine; Family Provider Internal Medicine; PCP Internal Medicine
DX: I10 Essential (primary) hypertension (principal); R51 Headache; E11.65 Type 2 diabetes mellitus with hyperglycemia; E66.9 Obesity, unspecified; G47.33 Obstructive sleep apnea (adult) (pediatric); K21.9 Gastro-esophageal reflux disease without esophagitis; J44.9 Chronic obstructive pulmonary disease, unspecified; I87.2 Venous insufficiency (chronic) (peripheral); F90.9 Attention-deficit hyperactivity disorder, unspecified type
CPT/HCPCS: 70450; 71045; 80048; 81001; 82962; 84484; 85025; 93005; 94640; 99284; A4216; J2405

== ENCOUNTER 2018-07-07 13:09 | Inpatient (IN) | payer MEDICAID, SELFPAY ==
[2018-07-07] VITALS (7 sets, daily range): BP systolic 123–171; BP diastolic 71–92; PULSE 68–87; RESP 14–18; TEMP 36.4–37.6; O2SAT 92–98; BMI 53.4; BMI 54.8
[2018-07-07] MEDS: 0.9% Normal Saline 1,000 ML 150 ML IV (15:05)
[2018-07-07 15:27] LABS: Absolute Lymphocyte Count 0.91 X10^3/ul (0.83-4.51); Absolute Neutrophil Count 3.5 X10^3/uL (2.0-7.7); Lymphocyte # 0.91 X10^3/ul (4.0); Mean Corp Hgb Conc 30.6 g/gl (32-36); Mean Corpuscular Hgb 26.3 pg (27.0-32.0); Mean Corpuscular Volume 86.1 fL (81-99); Mean Platelet Vol. 9.7 fl (6.2-12.0); Monocyte# 0.42 X10^3/uL; Monocyte% 8.8 % (0-10); Neutrophil # 3.45 X10^3/uL (2.7-7.7); Platelet Count 147 K/mm3 (150-450); RBC Distribution Width CV 15.5 % (11.6-14.6); RBC Distribution Width SD 48.2 fl (35.1-43.9); Red Blood Count 4.18 M/mm3 (4.2-5.4); White Blood Count 4.8 K/mm3 (4.4-11.0)
[2018-07-07] MEDS: Morphine 4 MG/ML Syringe IV (15:27)
[2018-07-07] MEDS: Ondansetron 4 MG/2 ML Vial IV ×2 (15:27→21:10)
[2018-07-07 15:32] LABS: POSITIVE COUNT NO; POSITIVE DIFFERENTIAL NO; POSITIVE MORPHOLOGY NO
--- NOTE | 2018-07-07 15:39 | ED.VISSUMM ---
- ER Visit Summary Date of Service: 07/07/18 Chief Complaint: [Redness and swelling to both lower extremities] History of Present Illness: The patient is a 52 F [presents the emergency department with complaint of pain, redness, and swelling to both lower extremities. Patient states most of the discomfort is in the left leg. Patient has history of a chronic wound on the left leg that she has had for years that at times will open up and drain. Patient has had history of cellulitis that required admission for IV antibiotics. Patient states that last evening she had a fever up to 102. Patient's had chills and has felt hot and cold. Patient currently on doxycycline for history of COPD exacerbation.] Physical Examination: [HEENT-PERRLA, EOMI. Cranial nerves II through XII grossly intact. TMs clear. Mucous membranes moist. No adenopathy. Cardiovascular-regular rate and rhythm without murmur or ectopy Lungs-clear to auscultation, chest wall stable without crepitus or subcu emphysema Abdomen-normoactive bowel sounds, soft, nontender, no rebound or rigidity, no peritoneal signs. Extremities-intact ?4, normal range of motion, normal pulses, atraumatic]. Left lower extremity-patient is noted to have erythema and cellulitic changes involving the leg from just below the knee down to the foot. She has a chronic wound noted with us open area that seeping some serous fluid. Patient also has some faint erythema noted to the right lower extremity from the knee to the ankle. No lymphangitic streaking. Patient has normal pulses. Test Results: [CBC with differential obtained showed a white blood cell count of 4.8, hemoglobin 11, hematocrit 36, platelets 147. Chemistries pending.] Emergency Department Course and Treatment: [Patient was started on vancomycin as well as Unasyn.] Treatment Plan: [Admit for IV antibiotics] Disposition: [Admit] Impression: [Cellulitis bilateral lower extremities] This note was generated with evolso dictation software. It may contain incorrect words, spelling, and punctuation that were not noted in review of the chart prior to signing ED Disposition - Plan for ED Patient: Chief Complaint: Cellulitis Referrals: Cristal Wolf MD [Primary Care Provider] -
[2018-07-07 15:45] LABS: Anion Gap 5 (5-15); BUN 11 mg/dL (7-18); BUN/Creat Ratio 16.7 RATIO (10-20); Calcium,Total 8.4 mg/dL (8.5-10.1); Chloride 100 mmol/L (98-107); Creatinine, Serum 0.66 mg/dL (0.55-1.02); EST Glomerular Filtration Rate 99 mL/min (>60); Est Glom Filt Rate - Afr Amer 120 mL/min (>60); Estimated Creatinine Clearance 87.68 ml/min; Glucose 158 mg/dL (74-106); Potassium 4.5 mmol/L (3.5-5.1); Sodium Level 137 mmol/L (136-145)
[2018-07-07 15:57] LABS: Lactic Acid 2.2 mmol/L (0.4-2.0)
[2018-07-07] MEDS: DiphenhydrAMINE 50 MG/ML Syringe 25 MG IV (16:38)
--- NOTE | 2018-07-07 16:54 | PCM.HP.STD ---
Problem List (1) Cellulitis Status: Acute (2) HTN (hypertension) Status: Chronic (3) Bipolar disorder Status: Chronic (4) Migraines Status: Chronic (5) Stasis dermatitis of both legs Status: Chronic (6) Super obese Status: Chronic (7) Type II diabetes mellitus Status: Chronic (8) GERD (gastroesophageal reflux disease) Status: Chronic (9) COPD Status: Chronic History of Present Illness Date of Admission: 07/07/18 Chief Complaint: LLE swelling and pain The patient is a 52 year old F with a h/o of chronic venous stasis, previous LLE injury with chronic infections, DM2, HTN, Bipolar and migraines presents to the ER after 24 hours of increase redness, pain in her LLE as well as a fever to 102. She initially injured her LLE when she was helping to clear away trees years ago. Since she has had that leg have intermittent infections. She has only noticed that the leg was warm and painful yesterday, but she has noticed that the leg has been more swollen over the last few weeks. She has not been going to the wound clinic recently as she says her wound was healed, but yesterday she noticed some drainage though it is not draining now. In the ER she was given Vancomycin since she is allergic to PCN and cephalosporins. Past Medical History Past Medical History (Chronic Problems): Chronic Problems (Last Updated 02/18/18 @ 13:39 by Vida Gunn) HTN (hypertension) (Chronic) Pain syndrome, chronic (Chronic) Bipolar disorder (Chronic) Migraines (Chronic) Obstructive sleep apnea (Chronic) Stasis dermatitis of both legs (Chronic) Venous insufficiency of both lower extremities (Chronic) Super obese (Chronic) ADHD (attention deficit hyperactivity disorder) (Chronic) Benign hypertension (Chronic) Type II diabetes mellitus (Chronic) GERD (gastroesophageal reflux disease) (Chronic) COPD (Chronic) Open wound of left lower extremity (Chronic) Medical History: Medical History (Last Updated 02/18/18 @ 13:39 by Vida Gunn) Arthritis M19.90 Asthma J45.909 Back pain M54.9 COPD (chronic obstructive pulmonary disease) J44.9 Diabetes E11.9 Fatigue R53.83 Hemorrhoids K64.9 Knee pain M25.569 Migraines G43.909 HTN (hypertension) I10 Allergies cefazolin sodium [From [facility]] Allergy (Verified 08/18/18 13:11) Hives Penicillins Allergy (Verified 07/07/18 13:11) Hives Home Medications: Ambulatory Orders Medication Instructions Recorded Buspirone HCl 20 mg PO TID PRN PRN 03/05/17 Gabapentin [Neurontin] 1,200 mg PO TID 03/05/17 Nadolol [Corgard (Beta Torin)] 160 mg PO DAILY 03/05/17 Oxybutynin Chloride [Ditropan Xl] 15 mg PO QHS 03/05/17 Quetiapine Fumarate [Quetiapine 50 mg PO DAILY 03/05/17 Fumarate ER] Quetiapine Fumarate [Quetiapine 300 mg PO QHS 03/05/17 Fumarate ER] buPROPion XL [Wellbutrin Xl] 300 mg PO DAILY 03/05/17 Glimepiride [Amaryl] 40 mg PO BID 03/20/17 Lisinopril 20 mg PO QHS 03/20/17 divalproex 125 mg capsule,delayed 500 mg PO DAILY 02/18/18 release sprinkle omeprazole 10 mg capsule,delayed 10 mg PO DAILY 02/18/18 release valacyclovir 1 gram tablet 1,000 mg PO QDAY 02/18/18 Diazepam [Valium] 10 mg PO BID PRN PRN 03/11/18 Orphenadrine [Norflex ER] 100 mg PO BID PRN 03/11/18 traMADol [Ultram (G)] 100 mg PO Q6H PRN PRN 03/11/18 Albuterol Inhaler [Ventolin Hfa 2 puff INHALATION Q4H PRN PRN 05/29/18 (SP)] Doxycycline Monohydrate 100 mg PO BID #20 capsule 06/27/18 Surgical History: Surgical History (Last Updated 02/18/18 @ 13:39 by Vida Gunn) H/O hernia repair Z98.890, Z87.19 Hx of section Z98.891 Hx of hysterectomy Z90.710 Kidney stone N20.0 knee scope Surgical History: herniorrhaphy, hysterectomy, - - tubes in ears, knee scopes, dr malik for left anterior leg wound, hernia repair, carpal tunnel surgery bilateral Psychiatric History: Bipolar Lives: With Family Smoking Status: Never smoker Alcohol: None Drugs: None - *Family History Maternal Family History: Family History (Last Updated 02/18/18 @ 13:39 by Vida Gunn) Other Hypertension Kidney disease History Items: Heart Disease, Hypertension, Stroke Paternal Family History: Family History (Last Updated 02/18/18 @ 13:39 by Vida Gunn) Other Hypertension Kidney disease History Items: Hypertension, Stroke, - Review of Systems Constitutional: Reports: Fever Eyes: Denies: Blurred vision, Double vision HEENT: Denies: Head Aches, Sinus Congestion, Sinus Drainage Cardiovascular: Reports: Edema. Denies: Chest Pain Respiratory: Denies: Cough, Shortness of breath at rest, Sputum production Gastrointestinal: Denies: Abdominal Pain, Nausea, Vomiting Genitourinary: Denies: Dysuria Musculoskeletal: Denies: Joint Pain, Joint Tenderness Skin: Reports: Rash, Skin Changes Psychiatric: Reports: Anxiety, Depression VTE Information - Inpt Only VTE Present on Admission: No Patient Problems: Active and Suspected Problems (Last Updated 02/18/18 @ 13:39 by Vida Gunn) Cellulitis (Acute) - Physical Exam General: Alert, Oriented x3, Cooperative, No apparent distress HEENT: Atraumatic, PERRLA, EOMI, Normocephalic Oral: Dry Mucosa Neck: Supple, No JVD Lungs: Clear to auscultation, Normal air movement, No rhonchi, No wheeze, No rales Cardiovascular: Regular rate, Regular Rhythm, Normal S1, Normal S2, No murmurs Abdomen: Soft, Non Tender, Non-Distended, No Hepato-splenomegaly Skin: - - LLE is edematous and red/warm, no calf pain and hommens is negative. Area of what appears to be a previous open wound on her left perera that is currently not draining Vital Signs Temp Pulse Resp BP Pulse Ox 97.5 F L 68 16 123/71 H 97 07/07/18 13:11 07/07/18 13:11 07/07/18 16:40 07/07/18 16:40 07/07/18 16:40 Assessment/Plan All Active Problems (Last Updated 02/18/18 @ 13:39 by Vida Gunn) Cellulitis (Acute) Calculi, ureter (Acute) Fluid overload (Acute) UTI (urinary tract infection) (Acute) Right flank pain (Acute) 1. Cellulitis/LLE swelling and pain - She is allergic to ancef and PCN, will start clinda for probable strep cellulitis - IVF@100 - Will obtain dopplers as she is having LLE edema 2. Bipolar disorder/migraines - Will continue with seroquel and depakote - Discussed that the seroquel may not be a good fit given her weight and DM - Possible to change to lamictal if her psychiatrist agrees - Ok to continue with nadolol, valium, buspar and wellbutrin 3. DM2 - On glimepiride at home - Last AIc in 2017 is 7.7 she says recently she went up to 9.2 though I cant find record - Medium-High SSI started and will monitor 4. GERD - Stable - c/w PPI 5. Chronic pain - Stable on gabapentin and tramadol - will monitor renal function given how high her gabapentin is DVT: Lovenox Diet: DM Code Visit Inpatient E&M: 60150 Init Hosp L3
[2018-07-07 19:19] LABS: Reflex Lactate? Y
[2018-07-07 19:22] LABS: Valproic Acid (Depakene) Level < 3 ug/mL (50-100)
[2018-07-07 21:26] LABS: Lactic Acid 2.3 mmol/L (0.4-2.0)
[2018-07-07] MEDS: Gabapentin 600 MG Tablet 1200 MG PO (22:01)
[2018-07-07] MEDS: Lisinopril 20 MG Tablet PO (22:01)
[2018-07-07] MEDS: Tolterodine Tartrate 4 MG CAP.SA PO (22:01)
[2018-07-07] MEDS: Orphenadrine 100 MG Tablet PO (22:02)
[2018-07-07] MEDS: Insulin Lispro 100 UNIT/ML INSULN.PEN SQ (22:14)
[2018-07-07] MEDS: QUEtiapine 25 MG Tablet PO (22:34)
[2018-07-07] MEDS: QUEtiapine 100 MG Tablet 150 MG PO (22:37)
[2018-07-07] MEDS: Acetaminophen 325 MG Tablet 650 MG PO (23:38)
[2018-07-07 23:51] LABS: Bedside Glucose 221 mg/dL (70-110)
[2018-07-08] VITALS (7 sets, daily range): BP systolic 99–130; BP diastolic 63–77; PULSE 67–80; RESP 16–18; TEMP 36.4–37.1; O2SAT 95–98
[2018-07-08] MEDS: Gabapentin 600 MG Tablet 1200 MG PO ×3 (05:38→22:53)
[2018-07-08] MEDS: 0.9% Normal Saline 1,000 ML 100 ML IV ×2 (05:39→14:07)
[2018-07-08] MEDS: traMADol 50 MG Tablet 100 MG PO ×2 (05:44→16:32)
[2018-07-08 05:50] LABS: Absolute Lymphocyte Count 0.96 X10^3/ul (0.83-4.51); Absolute Neutrophil Count 3.4 X10^3/uL (2.0-7.7); Hematocrit 34.5 % (37-47); Hemoglobin 10.9 g/dl (12.0-15.0); Lymphocyte # 0.96 X10^3/ul (4.0); Lymphocyte % 20.4 % (19-41); Mean Corp Hgb Conc 31.6 g/gl (32-36); Mean Corpuscular Hgb 27.4 pg (27.0-32.0); Mean Corpuscular Volume 86.7 fL (81-99); Mean Platelet Vol. 9.7 fl (6.2-12.0); Monocyte# 0.39 X10^3/uL; Monocyte% 8.3 % (0-10); Neutrophil # 3.35 X10^3/uL (2.7-7.7); Neutrophil % 71.1 % (47-70); Platelet Count 131 K/mm3 (150-450); RBC Distribution Width SD 46.9 fl (35.1-43.9); Red Blood Count 3.98 M/mm3 (4.2-5.4); White Blood Count 4.7 K/mm3 (4.4-11.0)
[2018-07-08 05:56] LABS: POSITIVE COUNT NO; POSITIVE DIFFERENTIAL NO; POSITIVE MORPHOLOGY NO
[2018-07-08 06:18] LABS: Anion Gap 9 (5-15); BUN 11 mg/dL (7-18); BUN/Creat Ratio 16.5 RATIO (10-20); Calcium,Total 8.2 mg/dL (8.5-10.1); Chloride 101 mmol/L (98-107); Creatinine, Serum 0.67 mg/dL (0.55-1.02); EST Glomerular Filtration Rate 98 mL/min (>60); Est Glom Filt Rate - Afr Amer 118 mL/min (>60); Estimated Creatinine Clearance 86.37 ml/min; Glucose 183 mg/dL (74-106); Potassium 4.1 mmol/L (3.5-5.1); Sodium Level 139 mmol/L (136-145)
[2018-07-08 06:27] LABS: Lactic Acid 1.6 mmol/L (0.4-2.0)
[2018-07-08] MEDS: Insulin Lispro 100 UNIT/ML INSULN.PEN SQ ×4 (06:45→22:54)
[2018-07-08 06:56] LABS: Bedside Glucose 182 mg/dL (70-110)
[2018-07-08] MEDS: buPROPion (XL) 300 MG TABLET.XL PO (10:13)
[2018-07-08] MEDS: Pantoprazole Sodium 20 MG Tablet PO (10:13)
[2018-07-08] MEDS: Enoxaparin 40 MG/0.4 ML Syringe SC (10:14)
[2018-07-08] MEDS: QUEtiapine 100 MG Tablet 150 MG PO ×2 (10:15→22:53)
[2018-07-08] MEDS: QUEtiapine 25 MG Tablet PO ×2 (10:15→22:53)
[2018-07-08] MEDS: Divalproex Sodium 125 MG SPRINKLE 500 MG PO (10:16)
[2018-07-08] MEDS: Acetaminophen 325 MG Tablet 650 MG PO (10:24)
[2018-07-08 10:36] LABS: Bedside Glucose 232 mg/dL (70-110)
--- NOTE | 2018-07-08 11:17 | PCM.PN.HOSP ---
Patient Problems: Active and Suspected Problems (Last Updated 02/18/18 @ 13:39 by Vida Gunn) Cellulitis (Acute) Subjective: Required oxygen over night, though this morning seems to be doing ok without it. Vitals/I&O's: Vital Signs Temp Pulse Resp BP Pulse Ox 97.5 F L 67 16 104/67 95 07/08/18 08:51 07/08/18 08:51 07/08/18 08:51 07/08/18 08:51 07/08/18 08:51 Oxygen Flow Rate (L/min) 2 Oxygen Delivery Method Room Air Weight: 329 lb 2.402 oz Body Mass Index (BMI) 54.8 Intake and Output for Last 24 Hours 07/06/18 07/07/18 07/08/18 23:59 23:59 23:59 Intake Total 2127 / 2127 878 / 878 Output Total 850 / 850 200 / 200 Balance 1277 / 1277 678 / 678 General: Alert, Oriented x3, No apparent distress HEENT: Atraumatic, EOMI, Normocephalic Oral: Moist Mucosa Neck: Supple, No JVD Lungs: Clear to auscultation, Normal air movement, No rhonchi, No wheeze, No rales Cardiovascular: Regular rate, Regular Rhythm, Normal S1, Normal S2, No murmurs Abdomen: Soft, Non Tender, Non-Distended, No Hepato-splenomegaly Extremities: Edema - 2+ non-pitting Skin: Ulcer/ Wound - on left tibia, appears healed without drainage, Psych/Mental Status: Normal Affect, Appropriate Laboratory Results 07/07/18 18:05: Valproic Acid < 3 L 07/07/18 20:10: Lactic Acid 2.3 H 07/07/18 21:59: POC Glucose 221 H 07/08/18 05:20: WBC 4.7, RBC 3.98 L, Hgb 10.9 L, Hct 34.5 L, MCV 86.7, MCH 27.4, MCHC 31.6 L, RDW 15.0 H, RDW Differential 46.9 H, Plt Count 131 L, MPV 9.7, Immature Gran % (Auto) 0.200, Neut % (Auto) 71.1 H, Lymph % (Auto) 20.4, Teller % (Auto) 8.3, Eos % (Auto) 0.0, Baso % (Auto) 0.0, Absolute Neuts (auto) 3.4, Absolute Lymphs (auto) 0.96, Total Counted Not Reportable 07/08/18 05:20: Sodium 139, Potassium 4.1, Chloride 101, Carbon Dioxide 29.0, Anion Gap 9, BUN 11, Creatinine 0.67, Estim Creat Clear Calc 86.37, Est GFR (MDRD) Af Amer 118, Est GFR (MDRD) Non-Af 98, BUN/Creatinine Ratio 16.5, Glucose 183 H, Calcium 8.2 L 07/08/18 05:20: Lactic Acid 1.6 07/08/18 06:44: POC Glucose 182 H 07/08/18 10:29: POC Glucose 232 H Current Medications Acetaminophen (Tylenol) 650 mg PO Q6H PRN PRN PRN Reason: Mild Pain (scale 0-3)/T>100.7 Last Admin: 07/08/18 10:24 Dose: 650 mg Albuterol Sulfate (Ventolin Aerosols) 2.5 mg INHALATION Q4H PRN PRN PRN Reason: SOB &/OR WHEEZING Bupropion HCl (Wellbutrin Xl) 300 mg PO DAILY [facility] Last Admin: 07/08/18 10:13 Dose: 300 mg Buspirone HCl (Buspar) 20 mg PO TID PRN PRN PRN Reason: ANXIETY Dextrose (D50w Syringe) 0 gm IV X1 PRN; Protocol PRN Reason: Hypoglycemia Divalproex Sodium (Depakote Sprinkles) 500 mg PO DAILY [facility] Last Admin: 07/08/18 10:16 Dose: 500 mg Enoxaparin Sodium (Lovenox) 40 mg SC DAILY@1000 [facility] Last Admin: 07/08/18 10:14 Dose: 40 mg Gabapentin (Neurontin) 1,200 mg PO TID [facility] Last Admin: 07/08/18 05:38 Dose: 1,200 mg Glucagon () 1 mg IM .X1 PRN PRN Reason: Hypoglycemia Clindamycin Phosphate 600 mg/ (Dextrose) 54 mls @ 100 mls/hr IV Q8 [facility] Last Admin: 07/08/18 05:38 Dose: 100 mls/hr Sodium Chloride () 1,000 mls @ 100 mls/hr IV .Q10H [facility] Last Admin: 07/08/18 05:39 Dose: 100 mls/hr Insulin Human Lispro (Humalog Kwikpen (Bkc)) 0 unit SQ ACHS PEGGY PRN Reason: Protocol Last Admin: 07/08/18 10:31 Dose: 4 u Lisinopril (Zestril) 20 mg PO QHS [facility] Last Admin: 07/07/18 22:01 Dose: 20 mg Magnesium Hydroxide (Milk Of Magnesia) 30 ml PO DAILY PRN PRN PRN Reason: Constipation Ondansetron HCl (Zofran) 4 mg IV Q4H PRN PRN PRN Reason: NAUSEA Last Admin: 07/07/18 21:10 Dose: 4 mg Orphenadrine Citrate (Norflex Er) 100 mg PO BID PRN PRN Reason: muscles Last Admin: 07/07/18 22:02 Dose: 100 mg Pantoprazole Sodium (Protonix) 20 mg PO DAILY [facility] Last Admin: 07/08/18 10:13 Dose: 20 mg Quetiapine Fumarate (Seroquel) 25 mg PO BID [facility] Last Admin: 07/08/18 10:15 Dose: 25 mg Quetiapine Fumarate (Seroquel) 150 mg PO BID [facility] Last Admin: 07/08/18 10:15 Dose: 150 mg Sodium Chloride () 5 - 30 ml IV UD PRN PRN Reason: SALINE FLUSH Tolterodine Tartrate (Detrol La) 4 mg PO QHS [facility] Last Admin: 07/07/18 22:01 Dose: 4 mg Tramadol HCl (Ultram) 100 mg PO Q6H PRN PRN PRN Reason: PAIN Last Admin: 07/08/18 05:44 Dose: 100 mg Medical Necessity - Tobacco Use Smoking Status: Never smoker Assessment/Plan All Active Problems (Last Updated 02/18/18 @ 13:39 by Vida Gunn) Cellulitis (Acute) Calculi, ureter (Acute) Fluid overload (Acute) UTI (urinary tract infection) (Acute) Right flank pain (Acute) 1. Cellulitis/LLE swelling and pain - She is allergic to ancef and PCN, will start clinda for probable strep cellulitis as an FYI, she is not allergic to keflex and has taken that in the past - Allergy to ancef is itching as well as PCN - IVF@100, can DC if she is taking good PO - Will obtain dopplers as she is having LLE edema 2. Bipolar disorder/migraines - Will continue with seroquel and depakote - Discussed that the seroquel may not be a good fit given her weight and DM - Possible to change to lamictal if her psychiatrist agrees, especially as her depakote level is not therapeutic - Ok to continue with nadolol, valium, buspar and wellbutrin 3. DM2 - On glimepiride at home - Last AIc in 2017 is 7.7 she says recently she went up to 9.2 though I cant find record - Medium-High SSI started and will monitor 4. GERD - Stable - c/w PPI 5. Chronic pain - Stable on gabapentin and tramadol - will monitor renal function given how high her gabapentin is DVT: Lovenox Diet: DM Dispo: Likely DC in am on clinda for 5 days Code Visit Inpatient E&M: 48573 Subs Hosp L2
--- NOTE | 2018-07-08 11:33 | NURSING ---
patient wears oxygen at night due to sleep apnea- per assistant shift supervisor.
--- NOTE | 2018-07-08 16:14 | CM.UR ---
Met face to face with patient and family. States that she is supposed to have a speech eval. Also asked if the retort cooler is going to see her as she would like to see them. Configuration Manager arrived as I was leaving room. She briefly met with patient then she notified me that she is going to need multiple education sessions regarding nutrition--she thinks that will be more effective than her overwhelming her at this time. Laura Torres RN, CCM.
[2018-07-08 16:41] LABS: Bedside Glucose 230 mg/dL (70-110)
[2018-07-08] MEDS: 0.9% NaCl Peripheral Flush Adult/Peds IV (19:54)
[2018-07-08] MEDS: Ondansetron 4 MG/2 ML Vial IV (19:54)
[2018-07-08 22:11] LABS: Bedside Glucose 206 mg/dL (70-110)
[2018-07-08] MEDS: Tolterodine Tartrate 4 MG CAP.SA PO (22:54)
[2018-07-08] MEDS: Lisinopril 20 MG Tablet PO (22:54)
[2018-07-09] VITALS (7 sets, daily range): BP systolic 98–166; BP diastolic 63–96; PULSE 75–87; RESP 18–20; TEMP 36.4–36.8; O2SAT 92–96
[2018-07-09] MEDS: traMADol 50 MG Tablet 100 MG PO ×2 (03:59→18:44)
[2018-07-09] MEDS: 0.9% Normal Saline 1,000 ML 100 ML IV (04:57)
[2018-07-09] MEDS: Acetaminophen 325 MG Tablet 650 MG PO (05:00)
[2018-07-09] MEDS: Gabapentin 600 MG Tablet 1200 MG PO ×3 (05:01→22:14)
[2018-07-09 06:52] LABS: Anion Gap 8 (5-15); BUN 12 mg/dL (7-18); BUN/Creat Ratio 16.3 RATIO (10-20); Calcium,Total 8.2 mg/dL (8.5-10.1); Chloride 103 mmol/L (98-107); Creatinine, Serum 0.74 mg/dL (0.55-1.02); EST Glomerular Filtration Rate 87 mL/min (>60); Est Glom Filt Rate - Afr Amer 105 mL/min (>60); Glucose 221 mg/dL (74-106); Potassium 4.6 mmol/L (3.5-5.1); Sodium Level 139 mmol/L (136-145)
[2018-07-09 06:56] LABS: Bedside Glucose 201 mg/dL (70-110)
[2018-07-09] MEDS: Insulin Lispro 100 UNIT/ML INSULN.PEN SQ ×4 (06:56→22:23)
[2018-07-09] MEDS: buPROPion (XL) 300 MG TABLET.XL PO (08:58)
[2018-07-09] MEDS: Enoxaparin 40 MG/0.4 ML Syringe SC (08:58)
[2018-07-09] MEDS: Divalproex Sodium 125 MG SPRINKLE 500 MG PO (08:58)
[2018-07-09] MEDS: QUEtiapine 25 MG Tablet PO (08:59)
[2018-07-09] MEDS: Pantoprazole Sodium 20 MG Tablet PO (08:59)
[2018-07-09] MEDS: Ondansetron 4 MG/2 ML Vial IV ×2 (10:12→18:35)
[2018-07-09] MEDS: 0.9% NaCl Peripheral Flush Adult/Peds IV ×2 (10:12→18:35)
[2018-07-09 11:45] LABS: Bedside Glucose 214 mg/dL (70-110)
--- NOTE | 2018-07-09 12:38 | CHAPLAIN ---
Type of Pastoral Visit _x__ Initial Visit ___ Follow-up Visit ___ On-call Visit ___ General Patient Visit ___ Spiritual Assessment ___ Family Conference ___ Bereavement ___ Rapid Response ___ Code Blue ___ Other (describe below) Pastoral Care Referral From _x__ Patient ___ Family ___ Nurse ___ Physician ___ Auto Mechanic Apprentice ___ Uniform Attendant ___ Other (describe below) Sacrament/Intervention _x__ Active listening ___ Anointing ___ Jew _x__ Bereavement ___ Communion ___ Rianna exploration ___ ___ Life review _x__ Prayer ___ Reconciliation ___ Sacrament of Sick _x__ Supportive presence ___ Wedding ___ Other (describe below) Pastoral Comments this patient has been seen before in previous admission and when her mother was a patient; mother has and patient talks about the grief and the adjustments of life; pt has a son that is also dependent on her and she thinks of him; pt acknowledges that she may need to stay longer in hospital but is fine as long as I get better; other family members arrived during visit; pt welcomed prayer and spoke of thankfulness for visit
--- NOTE | 2018-07-09 13:23 | PCM.PN.HOSP ---
Patient Problems: Active and Suspected Problems (Last Updated 02/18/18 @ 13:39 by Vida Gunn) Cellulitis (Acute) Subjective: Said she felt a little dizzy because of her SBP 98. She is also urinating fairly frequently with IVF and has trouble making it to the bathroom Objective: General: Alert, Oriented x3, No apparent distress HEENT: Atraumatic, EOMI, Normocephalic Oral: Moist Mucosa Neck: Supple, No JVD Lungs: Clear to auscultation, Normal air movement, No rhonchi, No wheeze, No rales Cardiovascular: Regular rate, Regular Rhythm, Normal S1, Normal S2, No murmurs Abdomen: Soft, Non Tender, Non-Distended, No Hepato-splenomegaly Extremities: Edema - 2+ non-pitting Skin: Ulcer/ Wound - on left tibia, appears healed without drainage, Psych/Mental Status: Normal Affect, Appropriate Vitals/I&O's: Vital Signs Temp Pulse Resp BP Pulse Ox 97.8 F 87 20 H 148/89 H 92 07/09/18 13:14 07/09/18 13:14 07/09/18 13:14 07/09/18 13:14 07/09/18 13:14 Oxygen Flow Rate (L/min) 2 Oxygen Delivery Method Room Air Weight: 329 lb 2.402 oz Body Mass Index (BMI) 54.8 Intake and Output for Last 24 Hours 07/07/18 07/08/18 07/09/18 23:59 23:59 23:59 Intake Total 2127 / 2127 3184 / 3184 2064 / 2064 Output Total 850 / 850 1100 / 1100 1050 / 1050 Balance 1277 / 1277 2084 / 2084 1014 / 1014 Laboratory Results 07/08/18 16:31: POC Glucose 230 H 07/08/18 21:53: POC Glucose 206 H 07/09/18 05:25: Sodium 139, Potassium 4.6, Chloride 103, Carbon Dioxide 28.0, Anion Gap 8, BUN 12, Creatinine 0.74, Estim Creat Clear Calc 78.20, Est GFR (MDRD) Af Amer 105, Est GFR (MDRD) Non-Af 87, BUN/Creatinine Ratio 16.3, Glucose 221 H, Calcium 8.2 L 07/09/18 06:51: POC Glucose 201 H 07/09/18 11:39: POC Glucose 214 H Current Medications Acetaminophen (Tylenol) 650 mg PO Q6H PRN PRN PRN Reason: Mild Pain (scale 0-3)/T>100.7 Last Admin: 07/09/18 05:00 Dose: 650 mg Albuterol Sulfate (Ventolin Aerosols) 2.5 mg INHALATION Q4H PRN PRN PRN Reason: SOB &/OR WHEEZING Bupropion HCl (Wellbutrin Xl) 300 mg PO DAILY ON LICENSE OF [facility] Last Admin: 07/09/18 08:58 Dose: 300 mg Buspirone HCl (Buspar) 20 mg PO TID PRN PRN PRN Reason: ANXIETY Dextrose (D50w Syringe) 0 gm IV X1 PRN; Protocol PRN Reason: Hypoglycemia Divalproex Sodium (Depakote Sprinkles) 500 mg PO DAILY ON LICENSE OF [facility] Last Admin: 07/09/18 08:58 Dose: 500 mg Enoxaparin Sodium (Lovenox) 40 mg SC DAILY@1000 ON LICENSE OF [facility] Last Admin: 07/09/18 08:58 Dose: 40 mg Gabapentin (Neurontin) 1,200 mg PO TID ON LICENSE OF [facility] Last Admin: 07/09/18 13:16 Dose: 1,200 mg Glucagon () 1 mg IM .X1 PRN PRN Reason: Hypoglycemia Clindamycin Phosphate 600 mg/ (Dextrose) 54 mls @ 100 mls/hr IV Q8 ON LICENSE OF [facility] Last Admin: 07/09/18 13:16 Dose: 100 mls/hr Sodium Chloride () 1,000 mls @ 100 mls/hr IV .Q10H ON LICENSE OF [facility] Last Admin: 07/09/18 04:57 Dose: 100 mls/hr Insulin Human Lispro (Humalog Kwikpen (Bkc)) 0 unit SQ ACHS PEGGY PRN Reason: Protocol Last Admin: 07/09/18 11:42 Dose: 4 u Lisinopril (Zestril) 20 mg PO QHS ON LICENSE OF [facility] Last Admin: 07/08/18 22:54 Dose: 20 mg Magnesium Hydroxide (Milk Of Magnesia) 30 ml PO DAILY PRN PRN PRN Reason: Constipation Ondansetron HCl (Zofran) 4 mg IV Q4H PRN PRN PRN Reason: NAUSEA Last Admin: 07/09/18 10:12 Dose: 4 mg Orphenadrine Citrate (Norflex Er) 100 mg PO BID PRN PRN Reason: muscles Last Admin: 07/07/18 22:02 Dose: 100 mg Pantoprazole Sodium (Protonix) 20 mg PO DAILY ON LICENSE OF [facility] Last Admin: 07/09/18 08:59 Dose: 20 mg Quetiapine Fumarate (Seroquel) 25 mg PO BID ON LICENSE OF [facility] Last Admin: 07/09/18 08:59 Dose: 25 mg Quetiapine Fumarate (Seroquel) 150 mg PO BID ON LICENSE OF [facility] Last Admin: 07/09/18 08:59 Dose: Not Given Sodium Chloride () 5 - 30 ml IV UD PRN PRN Reason: SALINE FLUSH Last Admin: 07/09/18 10:12 Dose: 10 ml Tolterodine Tartrate (Detrol La) 4 mg PO QHS ON LICENSE OF [facility] Last Admin: 07/08/18 22:54 Dose: 4 mg Tramadol HCl (Ultram) 100 mg PO Q6H PRN PRN PRN Reason: PAIN Last Admin: 07/09/18 03:59 Dose: 100 mg Medical Necessity - Tobacco Use Smoking Status: Never smoker Assessment/Plan All Active Problems (Last Updated 02/18/18 @ 13:39 by Vida Gunn) Cellulitis (Acute) Calculi, ureter (Acute) Fluid overload (Acute) UTI (urinary tract infection) (Acute) Right flank pain (Acute) 1. Cellulitis/LLE swelling and pain - She is allergic to ancef and PCN, will start clinda for probable strep cellulitis as an FYI, she is not allergic to keflex and has taken that in the past - Allergy to ancef is itching as well as PCN - IVF@100, will dc as she is eating/drinking. - Will obtain dopplers as she is having LLE edema 2. Bipolar disorder/migraines - Will continue with seroquel and depakote - Discussed that the seroquel may not be a good fit given her weight and DM - Possible to change to lamictal if her psychiatrist agrees, especially as her depakote level is not therapeutic - Ok to continue with nadolol, valium, buspar and wellbutrin 3. DM2 - On glimepiride at home - Last AIc in 2017 is 7.7 she says recently she went up to 9.2 though I cant find record - Medium-High SSI started and will monitor 4. GERD - Stable - c/w PPI 5. Chronic pain - Stable on gabapentin and tramadol - will monitor renal function given how high her gabapentin is DVT: Lovenox Diet: DM Dispo: Likely DC in am on clinda for 5 days Code Visit Inpatient E&M: 69981 Subs Hosp L2
[2018-07-09 14:15] LABS: Absolute Lymphocyte Count 0.79 X10^3/ul (0.83-4.51); Absolute Neutrophil Count 2.5 X10^3/uL (2.0-7.7); Hemoglobin 10.4 g/dl (12.0-15.0); Lymphocyte # 0.79 X10^3/ul (4.0); Lymphocyte % 21.6 % (19-41); Mean Corp Hgb Conc 30.6 g/gl (32-36); Mean Corpuscular Hgb 26.6 pg (27.0-32.0); Mean Platelet Vol. 9.1 fl (6.2-12.0); Monocyte# 0.36 X10^3/uL; Monocyte% 9.8 % (0-10); Neutrophil % 68.3 % (47-70); Platelet Count 121 K/mm3 (150-450); RBC Distribution Width CV 15.8 % (11.6-14.6); RBC Distribution Width SD 50.4 fl (35.1-43.9); Red Blood Count 3.91 M/mm3 (4.2-5.4); White Blood Count 3.7 K/mm3 (4.4-11.0)
[2018-07-09 14:16] LABS: POSITIVE COUNT NO; POSITIVE DIFFERENTIAL NO; POSITIVE MORPHOLOGY NO
[2018-07-09 14:26] LABS: Anion Gap 3 (5-15); BUN 11 mg/dL (7-18); BUN/Creat Ratio 14.7 RATIO (10-20); Calcium,Total 8.4 mg/dL (8.5-10.1); Chloride 104 mmol/L (98-107); Creatinine, Serum 0.75 mg/dL (0.55-1.02); EST Glomerular Filtration Rate 86 mL/min (>60); Est Glom Filt Rate - Afr Amer 104 mL/min (>60); Estimated Creatinine Clearance 77.16 ml/min; Glucose 241 mg/dL (74-106); Potassium 4.5 mmol/L (3.5-5.1); Sodium Level 139 mmol/L (136-145)
--- NOTE | 2018-07-09 15:03 | NURSING ---
wound photo: left perera
[2018-07-09 17:15] LABS: Bedside Glucose 182 mg/dL (70-110)
[2018-07-09] MEDS: Tolterodine Tartrate 4 MG CAP.SA PO (22:14)
[2018-07-09] MEDS: Lisinopril 20 MG Tablet PO (22:14)
[2018-07-09] MEDS: QUEtiapine 100 MG Tablet 150 MG PO (22:20)
[2018-07-09 22:31] LABS: Bedside Glucose 199 mg/dL (70-110)
[2018-07-10 03:00] VITALS: BP 133/80; PULSE 71; RESP 18; TEMP 36.5; O2SAT 98
[2018-07-10] MEDS: traMADol 50 MG Tablet 100 MG PO (05:33)
[2018-07-10] MEDS: Gabapentin 600 MG Tablet 1200 MG PO (05:34)
[2018-07-10 06:50] LABS: Bedside Glucose 199 mg/dL (70-110)
[2018-07-10] MEDS: Insulin Lispro 100 UNIT/ML INSULN.PEN SQ (07:05)
[2018-07-10 07:15] VITALS: O2SAT 96
[2018-07-10 07:49] VITALS: BP 144/87; PULSE 72; RESP 16; TEMP 36.6; O2SAT 95
[2018-07-10] MEDS: Enoxaparin 40 MG/0.4 ML Syringe SC (09:32)
[2018-07-10] MEDS: Pantoprazole Sodium 20 MG Tablet PO (09:32)
[2018-07-10] MEDS: Divalproex Sodium 125 MG SPRINKLE 500 MG PO (09:33)
[2018-07-10] MEDS: buPROPion (XL) 300 MG TABLET.XL PO (09:33)
--- NOTE | 2018-07-10 09:35 | PCM.DC ---
- Discharge Diagnoses Current Active Problems: Current Active and Chronic Problems (Last Updated 02/18/18 @ 13:39 by Vida Gunn) Cellulitis (Acute) You will use the following diet at home:: Calorie/Carbohydrate Controlled (specify 1200, 1400, etc) Your food should be the consistency of: Regular Your liquids should be the consistency of: Regular/Thin Discharge Activity: No Restrictions Return to work on:: 07/16/18 Call your doctor if you observe: Fever of 101 or Higher Allergies/Adverse Reactions: Allergies cefazolin sodium [From Ancef] Allergy (Verified 07/07/18 13:11) Hives Penicillins Allergy (Verified 07/07/18 13:11) Hives Medications to take at Discharge Buspirone HCl 20 mg PO TID PRN PRN 03/05/17 Gabapentin [Neurontin] 1,200 mg PO TID 03/05/17 Nadolol [Corgard (Beta Torin)] 160 mg PO DAILY 03/05/17 Oxybutynin Chloride [Ditropan Xl] 15 mg PO QHS 03/05/17 Quetiapine Fumarate [Quetiapine Fumarate ER] 50 mg PO DAILY 03/05/17 Quetiapine Fumarate [Quetiapine Fumarate ER] 300 mg PO QHS 03/05/17 buPROPion XL [Wellbutrin Xl] 300 mg PO DAILY 03/05/17 Glimepiride [Amaryl] 40 mg PO BID 03/20/17 Lisinopril 20 mg PO QHS 03/20/17 divalproex 125 mg capsule,delayed release sprinkle 500 mg PO DAILY 02/18/18 omeprazole 10 mg capsule,delayed release 10 mg PO DAILY 02/18/18 valacyclovir 1 gram tablet 1,000 mg PO QDAY 02/18/18 Diazepam [Valium] 10 mg PO BID PRN PRN 03/11/18 Orphenadrine [Norflex] 100 mg PO BID PRN 03/11/18 traMADol [Ultram] 100 mg PO Q6H PRN PRN 03/11/18 Albuterol Inhaler [Ventolin Hfa] 2 puff INHALATION Q4H PRN PRN 05/29/18 Clindamycin [Cleocin] 450 mg PO TID 5 Days #15 cap 07/10/18 The following prescriptions were given: Clindamycin [Cleocin] 450 mg PO TID 5 Days #15 cap Primary Care Physician: Cristal Wolf MD [Primary Care Provider] - Please follow up with your Primary Care Physician in: in 3-5 days Test Results: Test results from this visit will be discussed in further detail at your follow-up appointment, if applicable.
[2018-07-10] MEDS: QUEtiapine 25 MG Tablet PO (09:36)
--- NOTE | 2018-07-10 09:40 | PCM.DC.SUM ---
Discharge Date and Diagnosis - Problem List Patient Problems: Active and Suspected Problems (Last Updated 02/18/18 @ 13:39 by Vida Gunn) Cellulitis (Acute) Date of Admission: 07/07/18 Date of Discharge: 07/10/18 - Primary Discharge Diagnosis Active and Suspected Problems (Last Updated 02/18/18 @ 13:39 by Vida Gunn) Cellulitis (Acute) - Secondary Discharge Diagnosis Chronic Problems (Last Updated 02/18/18 @ 13:39 by Vida Gunn) HTN (hypertension) (Chronic) Pain syndrome, chronic (Chronic) Bipolar disorder (Chronic) Migraines (Chronic) Obstructive sleep apnea (Chronic) Stasis dermatitis of both legs (Chronic) Venous insufficiency of both lower extremities (Chronic) Super obese (Chronic) ADHD (attention deficit hyperactivity disorder) (Chronic) Benign hypertension (Chronic) Type II diabetes mellitus (Chronic) GERD (gastroesophageal reflux disease) (Chronic) COPD (Chronic) Open wound of left lower extremity (Chronic) Hospital Course and Treatment Imaging Results: Venous doppler: Interpretation Summary No evidence for acute deep venous thrombosis bilateral lower extremities with patent and compressible bilateral great saphenous veins. Consultations 07/08/18 11:16 Consult: Onc/Wound/time study engineer Routine Comment: Operations: None Procedures: None Summary of Care Provided: HPI: The patient is a 52 year old F with a h/o of chronic venous stasis, previous LLE injury with chronic infections, DM2, HTN, Bipolar and migraines presents to the ER after 24 hours of increase redness, pain in her LLE as well as a fever to 102. She initially injured her LLE when she was helping to clear away trees years ago. Since she has had that leg have intermittent infections. She has only noticed that the leg was warm and painful yesterday, but she has noticed that the leg has been more swollen over the last few weeks. She has not been going to the wound clinic recently as she says her wound was healed, but yesterday she noticed some drainage though it is not draining now. In the ER she was given Vancomycin since she is allergic to PCN and cephalosporins. Vital Signs - 24 hr Temp Pulse Resp BP Pulse Ox 07/10/18 07:49 97.8 F 72 16 144/87 H 95 07/10/18 07:15 96 07/10/18 03:00 97.7 F L 71 18 133/80 H 98 07/09/18 22:00 18 07/09/18 19:30 97.5 F L 83 20 H 166/96 H 96 07/09/18 13:30 97.8 F 87 20 H 148/89 H 92 07/09/18 11:17 96 General: Alert, Oriented x3, No apparent distress HEENT: Atraumatic, EOMI, Normocephalic Oral: Moist Mucosa Neck: Supple, No JVD Lungs: Clear to auscultation, Normal air movement, No rhonchi, No wheeze, No rales Cardiovascular: Regular rate, Regular Rhythm, Normal S1, Normal S2, No murmurs Abdomen: Soft, Non Tender, Non-Distended, No Hepato-splenomegaly Extremities: Edema - 2+ non-pitting Skin: Ulcer/ Wound - on left tibia, appears healed without drainage, Psych/Mental Status: Normal Affect, Appropriate Hospital Course: 1. Cellulitis/LLE swelling and pain - On presentations it appeared that she was having a left lower pain, swelling and redness. US doppler demonstrated no DVT in either lower extremity. Given her allergy to PCN and ancef, she was started on clindamycin IV which appears to have helped her fever and the redness in her leg. She would like to be discharged today with close PCP follow-up. Her course was uncomplicated. 2. Bipolar disorder/Migraines - I checked a depakote level here on admission and her level was very low despite her assurance that she takes it as prescribed. We discussed the possibility of lamictal and the removal of both depakote and seroquel to possibly minimize the metabolic effects of the seroquel. I recommended she discuss this possibility with her psychiatrist. 3. DM2 - Her blood sugars were controlled during her stay with a SSI regimen. She is to continue her glimepiride on discharge. 4. Her other diagnosis were evaluated and her home meds were continued where appropriate. Discharge Activity: No Restrictions Return to work on:: 07/16/18 Call your doctor if you observe: Fever of 101 or Higher Home Medications: Medications to take at Discharge Buspirone HCl 20 mg PO TID PRN PRN 03/05/17 Gabapentin [Neurontin] 1,200 mg PO TID 03/05/17 Nadolol [Corgard (Beta Torin)] 160 mg PO DAILY 03/05/17 Oxybutynin Chloride [Ditropan Xl] 15 mg PO QHS 03/05/17 Quetiapine Fumarate [Quetiapine Fumarate ER] 50 mg PO DAILY 03/05/17 Quetiapine Fumarate [Quetiapine Fumarate ER] 300 mg PO QHS 03/05/17 buPROPion XL [Wellbutrin Xl] 300 mg PO DAILY 03/05/17 Glimepiride [Amaryl] 40 mg PO BID 03/20/17 Lisinopril 20 mg PO QHS 03/20/17 divalproex 125 mg capsule,delayed release sprinkle 500 mg PO DAILY 02/18/18 omeprazole 10 mg capsule,delayed release 10 mg PO DAILY 02/18/18 valacyclovir 1 gram tablet 1,000 mg PO QDAY 02/18/18 Diazepam [Valium] 10 mg PO BID PRN PRN 03/11/18 Orphenadrine [Norflex] 100 mg PO BID PRN 03/11/18 traMADol [Ultram] 100 mg PO Q6H PRN PRN 03/11/18 Albuterol Inhaler [Ventolin Hfa] 2 puff INHALATION Q4H PRN PRN 05/29/18 Clindamycin [Cleocin] 450 mg PO TID 5 Days #15 cap 07/10/18 Following Prescrptions Were Given to Patient: Clindamycin [Cleocin] 450 mg PO TID 5 Days #15 cap Primary Care Physician: Cristal Wolf MD [Primary Care Provider] - Please follow up with your Primary Care Physician in: in 3-5 days Disposition: Home Minutes spent on discharge:: 35 Patient Condition:: Good Medical Necessity - Tobacco Use Smoking Status: Never smoker Meaningful Use Info Meaningful Use Diagnoses (Choose all that apply): None applicable Code Visit Inpatient E&M: 51294 Disch Hosp
== END 2018-07-10 10:46 | disposition home or self-care (01) | DRG 277 ==
LOC: ED 14:30 → MS3 16:37
PROVIDERS: Internal Medicine; Admitting Provider Family Medicine; Emergency Provider Emergency Medicine; Family Provider Internal Medicine; PCP Internal Medicine; Visit Provider Family Medicine
DX: L03.116 Cellulitis of left lower limb (principal); J44.9 Chronic obstructive pulmonary disease, unspecified; E11.9 Type 2 diabetes mellitus without complications; Z79.84 Long term (current) use of oral hypoglycemic drugs; F31.9 Bipolar disorder, unspecified; G43.909 Migraine, unspecified, not intractable, without status migrainosus; Z88.0 Allergy status to penicillin; K21.9 Gastro-esophageal reflux disease without esophagitis; I87.2 Venous insufficiency (chronic) (peripheral); G47.33 Obstructive sleep apnea (adult) (pediatric); E66.9 Obesity, unspecified; Z68.43 Body mass index [BMI] 50.0-59.9, adult; F90.9 Attention-deficit hyperactivity disorder, unspecified type
CPT/HCPCS: 36415; 80048; 80164; 82962; 83605; 84484; 85025; 93005; 93970; 97162; 97166; 97802; 99284; J7030; J7040; J7050; A4216; J0295; J2405

== ENCOUNTER 2018-10-07 10:11 | Emergency (ER) | payer MEDICAID, SELFPAY ==
[2018-10-07 10:12] VITALS: BP 142/81; PULSE 68; RESP 16; TEMP 36.7; O2SAT 95; BMI 53.7
[2018-10-07 10:16] VITALS: BP 125/82; PULSE 68; RESP 16; O2SAT 94
--- NOTE | 2018-10-07 10:40 | ED.VISSUMM ---
- ER Visit Summary Date of Service: 10/07/18 Chief Complaint: [] Right lumbar back pain after lifting someone off floor History of Present Illness: The patient is a 52 F [] helping family member who had slid to the floor get up she is to strain her right back she has history of lumbar disc disease is having a pain to the back no numbness weakness paresthesias lower extremity no abdominal pain no trauma no bowel or bladder complaints she was fine before all the above Physical Examination: [] 125/82 General, no distress resting comfortably HEENT is generally unremarkable The neck is supple no adenopathy Cardiovascular, regular rate and rhythm Lungs, clear bilateral Abdomen, soft nontender Extremities, no clubbing cyanosis or edema, the back there is vague pain to the left paralumbar back there is no midline pain she is able to stand and walk she can heel raise toe raise knee bend and walk around the room without difficulty she indicates she had this before Neurologic, awake alert answering questions appropriately moving all 4 extremities Test Results: [] Emergency Department Course and Treatment: [] Indicates she has pain medications at home that she is used before for this condition that has recurred in the past, she at this time was treated with Toradol IM and follow-up with her doctors return for change in symptoms she is comfortable with this plan Treatment Plan: [] Disposition: [] Home stable Impression: [] Recurrent lumbar back pain after lifting This note was generated with [employer] dictation software. It may contain incorrect words, spelling, and punctuation that were not noted in review of the chart prior to signing ED Disposition - Plan for ED Patient: Chief Complaint: Back Referrals: Cristal Wolf MD [Primary Care Provider] -
--- NOTE | 2018-10-07 10:41 | ED.DEP ---
ED Disposition - Plan for ED Patient: Chief Complaint: Back Instructions: ED Spasm Back No Trauma Referrals: Cristal Wolf MD [Primary Care Provider] -
[2018-10-07] MEDS: Ketorolac 60 MG/2 ML Vial IM (10:53)
[2018-10-07 11:23] VITALS: BP 131/67; PULSE 74; RESP 16; O2SAT 98
== END 2018-10-07 11:25 | disposition home or self-care (01) ==
LOC: ED 11:02
PROVIDERS: Emergency Provider Emergency Medicine; Family Provider Internal Medicine; PCP Internal Medicine
DX: M54.5 Low back pain (principal)
CPT/HCPCS: 96372; 99284

== ENCOUNTER 2018-10-14 14:02 | Emergency (ER) | payer MEDICAID, SELFPAY ==
[2018-10-14 14:03] VITALS: BP 140/92; PULSE 73; RESP 22; TEMP 36.9; O2SAT 95; BMI 55.0
--- NOTE | 2018-10-14 14:30 | ED.VISSUMM ---
- ER Visit Summary Date of Service: 10/14/18 Chief Complaint: Left leg wound History of Present Illness: The patient is a 52 F who presents with left leg wound that began draining some purulent drainage over the last few days. Patient states her blood sugars have also been elevated over the past few days. Patient admits to subjective chills but did not take her temperature. Patient states she has pain over the wound that radiates into her calf. Patient denies any paresthesias or weakness. Physical Examination: Vital signs are stable. Patient is afebrile. Patient is in no acute distress. Oral mucosa is pink and moist. Neck is supple. Trachea is midline. There is no JVD noted. Heart was regular rate and rhythm. Lungs are clear and equal bilaterally. Abdomen is soft. Bowel sounds are normal. Skin is warm and dry. There is an open wound of the anterior aspect of the left lower leg. There is some mild purulent drainage noted. There is some mild tenderness over the calf and posterior knee. Pedal pulses are equal bilateral. There are no sensory deficits noted. The remaining physical exam is within normal limits. Test Results: CBC, basic metabolic profile, and urinalysis were obtained and were essentially within normal limits. D-dimer was obtained and was elevated. Patient was given a dose of Lovenox here. X-rays of the tib-fib were obtained. There is no acute process noted. Wound culture was obtained and is pending Emergency Department Course and Treatment: Patient was given a prescription for clindamycin. Patient was instructed to use bacitracin ointment to the area. Patient was instructed to follow-up with her primary care physician in 7-10 days. Patient was instructed to return tomorrow as an outpatient for follow-up venous duplex of her left leg. Patient understood and was agreeable with the plan. All questions were answered. Disposition: Discharge home Impression: 1. Open wound left leg 2. Left leg pain This note was generated with [employer] dictation software. It may contain incorrect words, spelling, and punctuation that were not noted in review of the chart prior to signing ED Disposition - Plan for ED Patient: Disposition: Home or Assisted Living Chief Complaint: Wound Diagnosis: Open wound of left lower leg Instructions: ED Wound Care Prescriptions: Clindamycin HCl [Cleocin] 300 mg PO Q6H #40 cap Referrals: Cristal Wolf MD [Primary Care Provider] -
[2018-10-14] MEDS: HYDROcodone Bitartrate/Apap 5/325 Tablet PO (15:09)
[2018-10-14 15:12] LABS: Absolute Lymphocyte Count 0.86 X10^3/ul (0.83-4.51); Absolute Neutrophil Count 3.3 X10^3/uL (2.0-7.7); Hematocrit 37.9 % (37-47); Hemoglobin 11.6 g/dl (12.0-15.0); Lymphocyte # 0.86 X10^3/ul (4.0); Mean Corp Hgb Conc 30.6 g/gl (32-36); Mean Corpuscular Hgb 25.8 pg (27.0-32.0); Mean Corpuscular Volume 84.2 fL (81-99); Mean Platelet Vol. 10.6 fl (6.2-12.0); Monocyte# 0.37 X10^3/uL; Monocyte% 8.2 % (0-10); Neutrophil # 3.29 X10^3/uL (2.7-7.7); Neutrophil % 72.8 % (47-70); Platelet Count 133 K/mm3 (150-450); RBC Distribution Width CV 14.9 % (11.6-14.6); RBC Distribution Width SD 45.9 fl (35.1-43.9); White Blood Count 4.5 K/mm3 (4.4-11.0)
[2018-10-14 15:13] LABS: POSITIVE COUNT NO; POSITIVE DIFFERENTIAL NO; POSITIVE MORPHOLOGY NO
--- NOTE | 2018-10-14 15:14 | RAD_ITS ---
STUDY: X-RAY - LEFT TIBIA AND FIBULA REASON FOR EXAM: Female, 52 years old. Infection. TECHNIQUE: 2 view(s) of the tibia and fibula were obtained. COMPARISON: 05/29/2018. FINDINGS: No change. Stable appearance of extensive soft tissue calcifications of the anteromedial calf. Stable soft tissues of the anterior calf with a chronic defect of the anterior aspect of the mid lower leg. No fractures. No dislocations. No focal destructive lesions. Degenerative changes of the knee. RAD/Tibia & Fibula 2 Views IMPRESSION: No change and no acute abnormality. Electronically Signed: Oliverio John MD at 15:54 EST , Service support ,
--- NOTE | 2018-10-14 15:16 | NURSING ---
CHEMISTRIES HEMOLIZED
[2018-10-14 15:29] LABS: D-Dimer Quantitative (DVT/PE) 0.59 FEU/ug/m (0.27-0.49)
[2018-10-14 15:58] LABS: Bacteria 0 SEEN /hpf (None Seen)
[2018-10-14 15:59] LABS: Anion Gap 6 (5-15); BUN 14 mg/dL (7-18); BUN/Creat Ratio 19.3 RATIO (10-20); Calcium,Total 8.4 mg/dL (8.5-10.1); Chloride 103 mmol/L (98-107); Creatinine, Serum 0.73 mg/dL (0.55-1.02); EST Glomerular Filtration Rate 88 mL/min (>60); Est Glom Filt Rate - Afr Amer 107 mL/min (>60); Estimated Creatinine Clearance 79.28 ml/min; Glucose 179 mg/dL (74-106); Potassium 4.2 mmol/L (3.5-5.1); Sodium Level 138 mmol/L (136-145)
[2018-10-14 16:00] LABS: Color, Urine Yellow (Yellow); Glucose, Dipstick Normal (Normal); Ketone-Dipstick Negative (Negative); Leukocyte Esterase-Dipstick Negative /ul (Negative); Nitrite-Dipstick Negative (Negative); Occult Blood-Urine 10 /ul (Negative); Protein-Dipstick Negative (Negative); Urine Bilirubin Dipstick Negative (Negative); Urine Clarity Sl. Cloudy (Clear); Urine Urobilinogen 4 mg/dl (Normal)
[2018-10-14] MEDS: Enoxaparin 150 MG/ML Syringe SC (16:10)
[2018-10-14 16:28] VITALS: BP 144/86; PULSE 65; RESP 17; O2SAT 96
--- NOTE | 2018-10-14 16:29 | ED.RN ---
IV DC'ED, CATHETER INTACT, SMALL GAUZE DRESSING PLACED. DISCHARGE INSTRUCTIONS GIVEN TO AND REVIEWED WITH PATIENT, PATIENT DENIES QUESTIONS OR CONCERNS AND VOICES UNDERSTANDING OF DISCHARGE INSTRUCTIONS. PT AMBULATES OUT OF ROOM WITHOUT DIFFICULTY.
[2018-10-14 16:36] LABS: Squamous Epithelial Cells - UA 0-5 SEEN /hpf (5-10)
[2018-10-14 16:37] LABS: Mucous, Urine RARE /hpf (<or=2+)
[2018-10-14 16:40] LABS: White Blood Cells 0-5 SEEN /hpf (0-5); Yeast-Urine 1+ /hpf (None Seen)
[2018-10-14 16:41] LABS: Red Blood Cells-Urine 0-5 SEEN /hpf (0-5)
== END 2018-10-14 16:29 | disposition home or self-care (01) ==
PROVIDERS: Emergency Provider Emergency Medicine; Family Provider Internal Medicine; PCP Internal Medicine
DX: M79.605 Pain in left leg (principal); S81.802A Unspecified open wound, left lower leg, initial encounter
CPT/HCPCS: 73590; 80048; 81001; 85025; 85379; 87070; 87077; 87186; 87205; 99285; A4216

== ENCOUNTER → 2018-10-15 11:15 | Outpatient (CLI) | payer MEDICAID, SELFPAY ==
[2018-10-14 14:03] VITALS: BMI 55.0
--- NOTE | 2018-10-15 11:20 | VDLE_ITS ---
Reason For Study: Elevated D-Dimer Procedure LEFT Exam performed in department. GSV is normal. A preliminary report was called and/or faxed CFV is compressible, spontaneous, phasic, to Dr. Wolf. competent, and demonstrates normal augmentation. FV is compressible, spontaneous, phasic, competent and demonstrates normal augmentation. POP V is compressible, spontaneous, phasic, competent and demonstrates normal augmentation. T/P Trunk is compressible. PTV is compressible. LT PerV is compressible. <> Interpretation Summary There is no evidence of left lower extremity deep vein thrombosis. Left greater saphenous vein appears patent and compressible segmentally. Ordering Physician: Marek Bailey Referring Physician: Cristal Wolf Performed By: Siomara Ruth, ANNI, RVT
== END ==
PROVIDERS: Family Provider Internal Medicine; PCP Internal Medicine; Referring Provider Emergency Medicine; Visit Provider Emergency Medicine
DX: E88.09 Other disorders of plasma-protein metabolism, not elsewhere classified (principal)
CPT/HCPCS: 93971

== ENCOUNTER 2018-11-17 12:43 | Emergency (ER) | payer MEDICAID, SELFPAY ==
[2018-10-16 14:36] VITALS: BMI 55.0
[2018-11-17 12:45] VITALS: BP 156/85; PULSE 73; RESP 17; TEMP 36.4; O2SAT 95; BMI 55.2
--- NOTE | 2018-11-17 13:00 | VDLE_ITS ---
Reason For Study: RLE pain RIGHT GSV is normal. CFV is compressible, spontaneous, phasic, competent and demonstrates normal augmentation. FV is compressible, spontaneous, phasic, competent and demonstrates normal augmentation. POP V is compressible, spontaneous, phasic, competent and demonstrates normal augmentation. T/P Trunk is compressible. PTV is compressible. Unable to visualize PER V. Procedure Exam performed in department. The study was technically difficult. The exam was diagnostic. A preliminary report was called and/or faxed to Dr. Wolf & ED. Interpretation Summary There is no evidence of right lower extremity deep vein thrombosis. Right greater saphenous vein appears patent and compressible segmentally. Unable to visualize right peroneal vein Technically difficult exam Ordering Physician: Vinay Mai Referring Physician: Cristal Wolf Performed By: Ghazal Byrd, ANNI, RVT
[2018-11-17] MEDS: HYDROcodone Bitartrate/Apap 5/325 Tablet PO (13:06)
--- NOTE | 2018-11-17 13:29 | ED.VISSUMM ---
- ER Visit Summary Date of Service: 11/17/18 Chief Complaint: Right leg pain/fibromyalgia flare History of Present Illness: The patient is a 53 F who tells me she is having a fibromyalgia flare. It started about 6 days ago. She has pain in the right hip, right knee and right ankle area. Hurts to walk on it. She has tried Norflex, tramadol and Lyrica but it is not helping. She states that when she does have a flare it occurs in these areas. She states that she has a history of a DVT about 30 years ago. Physical Examination: Vital signs reviewed. Right lower extremity exam reveals tenderness in the thigh, hip, knee, leg and ankle area. These are all tender when you push on them. She has no swelling or erythema. She has full range of motion with pain. Test Results: Ultrasound duplex will be obtained tomorrow Emergency Department Course and Treatment: Patient was given [place] but it did not help. She will get a shot of Toradol. She will go home with NSAIDs will follow up tomorrow for her ultrasound Treatment Plan: [] Disposition: Discharge Impression: Right leg pain History of fibromyalgia This note was generated with [employer] dictation software. It may contain incorrect words, spelling, and punctuation that were not noted in review of the chart prior to signing ED Disposition - Plan for ED Patient: Chief Complaint: Lower Extremity Injury Referrals: Cristal Wolf MD [Primary Care Provider] -
--- NOTE | 2018-11-17 14:02 | ED.DEP ---
ED Disposition - Plan for ED Patient: Disposition: Home or Assisted Living Chief Complaint: Lower Extremity Injury Instructions: Managing Fibromyalgia Prescriptions: Diflunisal [Dolobid] 500 mg PO TID #14 tab Referrals: Cristal Wolf MD [Primary Care Provider] -
[2018-11-17 14:40] VITALS: PULSE 70; RESP 16; O2SAT 97
[2018-11-17] MEDS: Ketorolac 60 MG/2 ML Vial IM (14:40)
--- NOTE | 2018-11-17 15:15 | ED.RN ---
[employer] HELPER NOTIFIED OF ULTRASOUND ORDER. Lior RAY RN [id number]
== END 2018-11-17 15:11 | disposition home or self-care (01) ==
PROVIDERS: Emergency Provider Emergency Medicine; Family Provider Internal Medicine; PCP Internal Medicine
DX: M79.604 Pain in right leg (principal); M79.7 Fibromyalgia; Z86.718 Personal history of other venous thrombosis and embolism
CPT/HCPCS: 93971; 96372; 99282

== ENCOUNTER → 2018-11-18 11:21 | Outpatient (CLI) | payer MEDICAID, SELFPAY ==
[2018-11-17 12:45] VITALS: BMI 55.2
== END ==
PROVIDERS: Family Provider Internal Medicine; PCP Internal Medicine; Visit Provider Emergency Medicine
DX: R52 Pain, unspecified (principal)
CPT/HCPCS: 93971

== ENCOUNTER 2018-12-05 11:04 | Emergency (ER) | payer MEDICAID, SELFPAY ==
[2018-12-05 11:04] VITALS: BP 130/97; PULSE 87; RESP 16; TEMP 36.6; O2SAT 96; BMI 54.3
[2018-12-05 11:13] VITALS: TEMP 36.6
--- NOTE | 2018-12-05 11:17 | VDLE_ITS ---
Reason For Study: LEG PAIN Procedure LEFT Exam performed portable in ED. GSV is normal. A preliminary report was called and/or faxed CFV is compressible, spontaneous, phasic, to Dr. Lester. competent, and demonstrates normal augmentation. FV is compressible, spontaneous, phasic, competent and demonstrates normal augmentation. POP V is compressible, spontaneous, phasic, competent and demonstrates normal augmentation. T/P Trunk is compressible. PTV is compressible. LT PerV is compressible. Interpretation Summary There is no evidence of left lower extremity deep vein thrombosis. Left greater saphenous vein appears patent and compressible segmentally. Ordering Physician: Zack Lester Referring Physician: Cristal Wolf M.D. Performed By: Misty Krueger RVT
[2018-12-05 11:34] LABS: Absolute Neutrophil Count 3.4 X10^3/uL (2.0-7.7); Hematocrit 37.9 % (37-47); Hemoglobin 11.4 g/dl (12.0-15.0); Lymphocyte % 16.9 % (19-41); Mean Corp Hgb Conc 30.1 g/gl (32-36); Mean Corpuscular Hgb 25.4 pg (27.0-32.0); Mean Corpuscular Volume 84.6 fL (81-99); Mean Platelet Vol. 10.1 fl (6.2-12.0); Monocyte# 0.57 X10^3/uL; Neutrophil # 3.36 X10^3/uL (2.7-7.7); Neutrophil % 70.9 % (47-70); POSITIVE COUNT NO; POSITIVE DIFFERENTIAL NO; POSITIVE MORPHOLOGY NO; Platelet Count 141 K/mm3 (150-450); RBC Distribution Width CV 15.8 % (11.6-14.6); RBC Distribution Width SD 48.9 fl (35.1-43.9); Red Blood Count 4.48 M/mm3 (4.2-5.4); White Blood Count 4.7 K/mm3 (4.4-11.0)
[2018-12-05 11:47] LABS: Anion Gap 6 (5-15); BUN 13 mg/dL (7-18); BUN/Creat Ratio 14.5 RATIO (10-20); Calcium,Total 8.5 mg/dL (8.5-10.1); Chloride 102 mmol/L (98-107); Creatinine, Serum 0.89 mg/dL (0.55-1.02); EST Glomerular Filtration Rate 70 mL/min (>60); Est Glom Filt Rate - Afr Amer 84 mL/min (>60); Estimated Creatinine Clearance 64.27 ml/min; Glucose 271 mg/dL (74-106); Potassium 4.3 mmol/L (3.5-5.1); Sodium Level 136 mmol/L (136-145)
[2018-12-05] MEDS: HYDROcodone Bitartrate/Apap 5/325 Tablet PO (11:57)
--- NOTE | 2018-12-05 12:52 | ED.VISSUMM ---
- ER Visit Summary Date of Service: 12/05/18 Chief Complaint: Left lower calf discomfort. History of Present Illness: The patient is a 53 F history of noncemented diabetes hypertension and bipolar. Patient states for the last 2 days he is a pain left lower leg. She is concerned she may have recurrent cellulitis. She does have chronic venous stasis. And chronic wounds. She denies any fever or chills. She denies any drainage. Physical Examination: Well-appearing middle-age female. Vital signs table afebrile. H EENT exam unremarkable. Neck tender. Lungs clear to auscultation bilaterally. Heart regular rate and rhythm no murmur. Abdomen obese but soft. Nontender, nondistended, normal bowel sounds no peritoneal signs. Patient moving all 4 extremities. Neurovascular intact. Dorsi plantar flexion intact. Palpable DP pulse. He does have a chronic wound on her left proximal tibia. There is chronic discoloration of her left lower extremity and the skin with chronic changes secondary to venous stasis changes. I do not see any red, warm or shiny skin I do not think there is acute cellulitis. She complains of mild pain to her proximal left calf. No obvious left lower extremity edema or cords. Neurologically she is awake and alert with no focal motor deficits. Test Results: This study of the left lower extremity was read as negative. No DVT. A white count of 4. Hemoglobin 11. Platelets 141,000 she runs chronic thrombocytopenia. Electrolytes unremarkable glucose of 271 normal creatinine and gap. Emergency Department Course and Treatment: Clinically she does not have cellulitis. By noninvasive study left lower extremity there is no DVT. On repeat exam patient was doing well at 12:40 PM. She is comfortable being discharged home. Treatment Plan: Discharged home. Follow-up primary care physician. Return if worse. Disposition: Discharge Impression: Left lower extremity pain uncertain etiology This note was generated with [employer] dictation software. It may contain incorrect words, spelling, and punctuation that were not noted in review of the chart prior to signing ED Disposition - Plan for ED Patient: Chief Complaint: Cellulitis Referrals: Cristal Wolf MD [Primary Care Provider] -
--- NOTE | 2018-12-05 12:55 | ED.DEP ---
ED Disposition - Plan for ED Patient: Disposition: Home or Assisted Living Chief Complaint: Cellulitis Referrals: Cristal Wolf MD [Primary Care Provider] - As Needed Additional Instructions: Ultrasound of your leg showed no signs of a blood clot. Clinically nor by labs or is no signs of infection. And follow-up with your regular doctor.
[2018-12-05 13:05] VITALS: BP 122/67; PULSE 76; RESP 15; O2SAT 98
--- OUTSIDE RECORDS SUMMARY | 2019-02-09 07:53 | XMS RPT_ITS ---
:1965 Author Organization OHIP Support Name Relationship Address Phone LEVI GOMEZ Unavailable Unavailable + LENARD RAMESH Unavailable [address] + [place] [address] UE Unavailable Unavailable Unavailable HINDENI LENARD Unavailable [address] + [place] [address] UE Unavailable Unavailable Unavailable OMAIRA ROUSSEAUA Unavailable [address] + [place] [address] LEVI GOMEZ Unavailable Unavailable + DOMITILA LENARD Unavailable [address] + [place] [address] UE Unavailable Unavailable Unavailable HINKEL, LENARD Unavailable [address] + [place] [address] UE Unavailable Unavailable Unavailable ONELIA, LUCIANA Unavailable [address] + [place] [address] HINKEL, LENARD Unavailable [address] + [place] [address] UE Unavailable Unavailable Unavailable ONELIA LUCIANA Unavailable [address] + [place] [address] HINKEL, LENARD Unavailable [address] + [place] [address] UE Unavailable Unavailable Unavailable ONELIA, LUCIANA Unavailable [address] + [place] [address] HINKEL, LENARD Unavailable [address] + [place] [address] UE Unavailable Unavailable Unavailable ONELIA LUCIANA Unavailable [address] + [place] [address] HINKEL, LENARD Unavailable [address] + [place] [address] UE Unavailable Unavailable Unavailable ONELIA LUCIANA Unavailable [address] + [place] [address] LENARD RAMESH Unavailable [address] + [place] [address] UE Unavailable Unavailable Unavailable LINGINGA LUCIANA Unavailable [address] + [place] [address] COUCTR Unavailable [address] + [place] [address] LENARD RAMESH Unavailable [address] + [place] [address] ONELIA LUCIANA Unavailable [address] + [place] [address] COUCTR Unavailable [address] + [place] [address] LENARD RAMESH Unavailable [address] + [place] [address] ONELIA LUCIANA Unavailable [address] + [place] [address] COUCTR Unavailable [address] + [place] [address] LENARD RAMESH Unavailable [address] + [place] [address] ONELIA LUCIANA Unavailable [address] + [place] [address] COUCTR Unavailable [address] + [place] [address] LENARD RAMESH Unavailable [address] + [place] [address] ONELIA LUCIANA Unavailable [address] + [place] [address] COUCTR Unavailable [address] + [place] [address] LENARD RAMESH Unavailable [address] + [place] [address] ONELIA LUCIANA Unavailable [address] + [place] [address] COUCTR Unavailable [address] + [place] [address] LENARD RAMESH Unavailable [address] + [place] [address] ONELIA, LUCIANA Unavailable [address] + [place] [address] COUCTR Unavailable [address] + [place] [address] LENARD RAMESH Unavailable [address] + [place] [address] ONELIA, LUCIANA Unavailable [address] + [place] [address] COUCTR Unavailable [address] + [place] [address] LENARD RAMESH Unavailable [address] + [place] [address] ONELIA, LUCIANA Unavailable [address] + [place] [address] COUCTR Unavailable [address] + [place] [address] LENARD RAMESH Unavailable [address] + [place] [address] ZURINGA, LUCIANA Unavailable [address] + [place] [address] COUCTR Unavailable [address] + [place] [address] LENARD RAMESH Unavailable [address] + [place] [address] ZURINGA, LUCIANA Unavailable [address] + [place] [address] COUCTR Unavailable [address] + [place] [address] LENARD RAMESH Unavailable [address] + [place] [address] ZURCHER, LUCIANA Unavailable [address] + [place] [address] COUCTR Unavailable [address] + [place] [address] DOMITILA LENARD Unavailable [address] + [place] [address] ZURINGA, LUCIANA Unavailable [address] + [place] [address] COUCTR Unavailable [address] + [place] [address] DENILSONJose MiguelDENI LENARD Unavailable [address] + [place] [address] ZURCHER, LUCIANA Unavailable [address] + [place] [address] COUCTR Unavailable [address] + [place] [address] DOMITILA LENARD Unavailable [address] + [place] [address] ONELIA, LUCIANA Unavailable [address] + [place] [address] COUCTR Unavailable [address] + [place] [address] DENILSONIRAIS LENARD Unavailable [address] + [place] [address] ZURCHER, LUCIANA Unavailable [address] + [place] [address] COUCTR Unavailable [address] + [place] [address] DENILSONJose MiguelDENI LENARD Unavailable [address] + [place] [address] ONELIA, LUCIANA Unavailable [address] + [place] [address] Care Team Providers Name Role Phone Talampas, Terrie Primary Care Unavailable Vinay Mai Attending Unavailable Lamont Morales Attending Unavailable Talampas, Terrie Primary Care Unavailable Phil Melendez Attending Unavailable Talampas, Terrie Referring Unavailable Talampas, Terrie Primary Care Unavailable Lamont Morales Attending Unavailable Talampas, Terrie Primary Care Unavailable Alize Hidalgo Attending Unavailable Talampas, Terrie Primary Care Unavailable Rob Bey Attending Unavailable Talampas, Terrie Primary Care Unavailable Rob Bey Attending Unavailable Talampas, Terrie Primary Care Unavailable Jama King Attending Unavailable Talampas, Terrie Primary Care Unavailable Zack Lester Attending Unavailable CebuDonterll francois Attending Unavailable Lamont Morales Referring Unavailable Talampas, Terrie Primary Care Unavailable GURPREET PATEL Attending Unavailable Talampas, Terrie Primary Care Unavailable Kotsonis, Salinas F Admitting Unavailable Kotsonis, Salinas F Attending Unavailable Kotsonis, Salinas F Admitting Unavailable Kotsonis, Salinas F Attending Unavailable Talampas, Terrie Primary Care Unavailable Kotsonis, Sailnas F Consulting Unavailable Kotsonis, Salinas F Admitting Unavailable Kotsonis, Salinas F Attending Unavailable Talampas, Terrie Primary Care Unavailable Kotsonis, Salinas F Consulting Unavailable Kotsonis, Salinas F Admitting Unavailable Kotsonis, Salinas F Attending Unavailable Talampas, Terrie Primary Care Unavailable Kotsonis, Salinas F Consulting Unavailable Kotsonis, Salinas F Admitting Unavailable Kotsonis, Salinas F Attending Unavailable Talampas, Terrie Primary Care Unavailable Kotsonis, Salinas F Consulting Unavailable Danyelle Weber NP-C Attending Unavailable Talampas, Terrie Referring Unavailable Talampas, Terrie Primary Care Unavailable Dontrell Batres Attending Unavailable Kotsonis, Salinas F Referring Unavailable Dale Craig Attending Unavailable Kotsonis, Salinas F Referring Unavailable Danyelle Weber TRANSFORMATION SPECIALIST-C Attending Unavailable Talampas, Terrie Referring Unavailable Talampas, Terrie Primary Care Unavailable Alize Hidalgo Attending Unavailable Talampas, Terrie Primary Care Unavailable SchwigerMarek Attending Unavailable Schwiger, Marek Attending Unavailable Schwiger, Marek Referring Unavailable Talampas, Terrie Primary Care Unavailable Danyelle Weber TRANSFORMATION SPECIALIST-C Attending Unavailable Talampas, Terrie Referring Unavailable RoseannabuDontrell francois Attending Unavailable Schwiger, Marek Referring Unavailable TALAMPAS, TERRIE D Attending Unavailable TALAMPAS, TERRIE D Referring Unavailable TALAMPAS, TERRIE D Attending Unavailable TALAMPAS, TERRIE D Referring Unavailable TALAMPAS, TERRIE D Attending Unavailable HANSA GAMBINO (CATH LAB RADIOLOGICAL TECHNOLOGIST) Attending Unavailable PODLOGARHANSA (CATH LAB RADIOLOGICAL TECHNOLOGIST) Referring Unavailable TALAMPAS, TERRIE D Attending Unavailable TALAMPAS, TERRIE D Referring Unavailable VERONICA HOROWITZ (CNM) Attending Unavailable TY, EMILE (WINDING OPERATOR) Attending Unavailable TALAMPAS, TERRIE D Attending Unavailable TALAMPAS, TERRIE D Referring Unavailable TY, EMILE (WINDING OPERATOR) Attending Unavailable MILADIS XIAO (CATH LAB RADIOLOGICAL TECHNOLOGIST) Attending Unavailable HAAGENKAREN (CATH LAB RADIOLOGICAL TECHNOLOGIST) Attending Unavailable PODLOGAR, HANSA (CATH LAB RADIOLOGICAL TECHNOLOGIST) Attending Unavailable PODLOGAR, HANSA (CATH LAB RADIOLOGICAL TECHNOLOGIST) Referring Unavailable TALAMPAS, TERRIE D Referring Unavailable TALAMPAS, TERRIE D Attending Unavailable TALAMPAS, TERRIE D Attending Unavailable PODLOGAR, HANSA (CATH LAB RADIOLOGICAL TECHNOLOGIST) Attending Unavailable TALAMPAS, TERRIE D Referring Unavailable TY, EMILE (WINDING OPERATOR) Attending Unavailable TALAMPAS, TERRIE D Attending Unavailable TALAMPAS, TERRIE D Referring Unavailable TALAMPAS, TERRIE D Attending Unavailable TALAMPAS, TERRIE D Attending Unavailable PODLOGAR, HANSA (CATH LAB RADIOLOGICAL TECHNOLOGIST) Attending Unavailable TALAMPAS, TERRIE D Attending Unavailable TALAMPAS, TERRIE D Attending Unavailable TALAMPAS, TERRIE D Referring Unavailable TREY FRIAS (RES) Attending Unavailable TALAMPAS, TERRIE Primary Care Unavailable MD TREY FRIAS Attending Unavailable PROBLEMS PROBLEMS DATE TYPE CONDITION / CODE ATTENDING STATUS SOURCE Unknown M79.661 - Pain in Dontrell Batres Active [place] 9 right lower leg / Community M79.661(ICD-10) Hospital Repository Unknown E11.9 - Type 2 AlexandranhungDanyelle Active [place] 8 diabetes mellitus J TRANSFORMATION SPECIALIST-C [facility] without complications Hospital / E11.9(ICD-10) Repository Unknown R13.10 - Dysphagia, Danyelle Weber Active [place] 8 unspecified / J TRANSFORMATION SPECIALIST-C Community R13.10(ICD-10) Hospital Repository Unknown R94.31 - Abnormal Mood[place], Active [place] 8 electrocardiogram [facility] [ECG] [EKG] / Hospital R94.31(ICD-10) Repository Unknown I10 - Essential [place], Active [place] 8 (primary) hypertension [facility] / I10(ICD-10) Hospital Repository Unknown J98.9 - Respiratory Dontrell Batres Active [place] 8 disorder, unspecified Community / J98.9(ICD-10) Hospital Repository Active Unspecified TREY FRIAS Active [place] 8 intracranial injury (RES) Clinic Other without loss of [place] consciousness, initial Repository encounter / S06.9X0A(ICD-10) Admitting Unknown / UNK(Unknown) MD GAY Active [facility] 8 diagnosis [facility] Repository Active Other specified soft NA [facility] 8 tissue disorders / Clinic Main M79.89(ICD-10) [place] Repository Active Pain in left lower leg NA [place] [address] / M79.662(ICD-10) Clinic Main [place] Repository Active Type 2 diabetes NA [place] [address] mellitus without Clinic Main complications / [place] E11.9(ICD-10) Repository Unknown H92.09 - Otalgia, Phil [place] Active [place] 8 unspecified ear / Community H92.09(ICD-10) Hospital Repository Active Unknown / UNK(Unknown) TERRIE LOPEZ Active [place] 8 D Clinic Main [place] Repository PROCEDURES PROCEDURES No Procedure Records FoundRESULTS RESULTS VENOUS DUPLEX LOWER Observed: 12/05/2018 Status: F Source: [place] EXTREMITY 5:30 PM [facility] REPOSITORY [facility] Cardiovascular Services [address] [place] [address] Venous Duplex US, Unilateral 12/05/18 1133 MR#: [id number] Acct: [id number] Name: EDEL LANG Rep #: [id number] : 1965 53 From: Dontrell Batres MD Attending Dr: Status: DEP ER Ordering Dr: Zack Lester MD Date: 12/05/18 Location: ED Sex: F C Admitted: Reason For Study: LEG PAIN Procedure LEFT Exam performed portable in ED. GSV is normal. A preliminary report was called and/or faxed CFV is compressible, spontaneous, phasic, to Dr. Lester. competent, and demonstrates normal augmentation. FV is compressible, spontaneous, phasic, competent and demonstrates normal augmentation. POP V is compressible, spontaneous, phasic, competent and demonstrates normal augmentation. T/P Trunk is compressible. PTV is compressible. LT PerV is compressible. Interpretation Summary There is no evidence of left lower extremity deep vein thrombosis. Left greater saphenous vein appears patent and compressible segmentally. Ordering Physician: Zack Lester Referring Physician: Terrie Lopez M.D. Performed By: Misty Krueger RVT 12/05/18 1729 Date Dontrell Batres MD CC: Zack Lester MD; Terrie Lopez MD Date Dictated: 12/05/18 1133 Date Transcribed: 12/05/181728 [employer] Operator: Signed DISCHARGE INSTRUCTION Observed: 12/05/2018 Status: F Source: [place] 4:04 PM [facility] REPOSITORY [facility] Medical Records Department [address] [place] [address] Discharge Instruction 12/05/18 1255 MR#: [id number] Acct: [id number] Name: RICKEYEDEL K Rep #: [id number] : 1965 53 From: Zack Lester MD PCP: Terrie Lopez MD Status: DEP ER ED Disposition - Plan for ED Patient: Disposition: Home or Assisted Living Chief Complaint: Cellulitis Referrals: Terrie Lopez MD [Primary Care Provider] - As Needed Additional Instructions: Ultrasound of your leg showed no signs of a blood clot. Clinically nor by labs or is no signs of infection. And follow-up with your regular doctor. What to do if you have Problems For any increased pain, shortness of breath, bleeding, nausea or vomiting, chest pain, or any unexpected problems, contact your Primary Care Provider. Call [facility] ([phone]) or report to the closest Emergency Room. Call 911 if necessary. 12/05/18 1604 <Electronically signed by Zack Lester MD> Date Zack Lester MD Cosigner Signature (If Indicated): Date CC: Terrie Lopez MD EMERGENCY DEPARTMENT Observed: 12/05/2018 Status: F Source: [place] SUMMARY 4:04 PM [facility] REPOSITORY [facility] Medical Records Department [address] [place] [address] Emergency Department Summary 12/05/18 1252 MR#: [id number] Acct: [id number] Name: EDEL LANG Rep #: [id number] : 1965 53 From: Zack Lester MD PCP: Terrie Lopez MD Status: DEP ER - ER Visit Summary Date of Service: 12/05/18 Chief Complaint: Left lower calf discomfort. History of Present Illness: The patient is a 53 F history of noncemented diabetes hypertension and bipolar. Patient states for the last 2 days he is a pain left lower leg. She is concerned she may have recurrent cellulitis. She does have chronic venous stasis. And chronic wounds. She denies any fever or chills. She denies any drainage. Physical Examination: Well-appearing middle-age female. Vital signs table afebrile. H EENT exam unremarkable. Neck tender. Lungs clear to auscultation bilaterally. Heart regular rate and rhythm no murmur. Abdomen obese but soft. Nontender, nondistended, normal bowel sounds no peritoneal signs. Patient moving all 4 extremities. Neurovascular intact. Dorsi plantar flexion intact. Palpable DP pulse. He does have a chronic wound on her left proximal tibia. There is chronic discoloration of her left lower extremity and the skin with chronic changes secondary to venous stasis changes. I do not see any red, warm or shiny skin I do not think there is acute cellulitis. She complains of mild pain to her proximal left calf. No obvious left lower extremity edema or cords. Neurologically she is awake and alert with no focal motor deficits. Test Results: This study of the left lower extremity was read as negative. No DVT. A white count of 4. Hemoglobin 11. Platelets 141,000 she runs chronic thrombocytopenia. Electrolytes unremarkable glucose of 271 normal creatinine and gap. Emergency Department Course and Treatment: Clinically she does not have cellulitis. By noninvasive study left lower extremity there is no DVT. On repeat exam patient was doing well at 12:40 PM. She is comfortable being discharged home. Treatment Plan: Discharged home. Follow-up primary care physician. Return if worse. Disposition: Discharge Impression: Left lower extremity pain uncertain etiology This note was generated with [employer] dictation software. It may contain incorrect words, spelling, and punctuation that were not noted in review of the chart prior to signing ED Disposition - Plan for ED Patient: Chief Complaint: Cellulitis Referrals: Terrie Lopez MD [Primary Care Provider] - What to do if you have Problems For any increased pain, shortness of breath, bleeding, nausea or vomiting, chest pain, or any unexpected problems, contact your Primary Care Provider. Call [facility] ([phone]) or report to the closest Emergency Room. Call 911 if necessary. 12/05/18 6631 <Electronically signed by Zack Lester MD> Date Zack Lester MD Cosigner Signature (If Indicated): Date CC: Terrie Lopez MD CBC W/DIFF, AUTOMATED Collected: 12/05/2018 Status: F Source: [place] 11:28 AM [facility] REPOSITORY TYPE CODE TESTS RESULT OUT OF RANGE REFERENCE UNITS LAB L100.1000 4.4-11.0 K/mm3 Normal WBC 4.7 LAB L100.1200 4.2-5.4 M/mm3 Normal RBC 4.48 LAB L100.1300 12.0-15.0 g/dl Low HGB 11.4 LAB L100.1400 37-47 % Normal HCT 37.9 LAB L100.1500 81-99 fL Normal MCV 84.6 LAB L100.1600 27.0-32.0 pg Low MCH 25.4 LAB L100.1700 32-36 g/gl Low MCHC 30.1 LAB L100.1810 11.6-14.6 % High RDW CV 15.8 LAB L100.1820 35.1-43.9 fl High RDW SD 48.9 LAB L100.1900 150-450 K/mm3 Low PLT 141 LAB L100.2000 6.2-12.0 fl Normal MPV 10.1 LAB L100.2100 47-70 % High NEUT% 70.9 LAB L100.2200 19-41 % Low LY% 16.9 LAB L100.2300 0-10 % High MONO% 12.0 LAB L100.2400 0-5 % Normal EO% 0.0 LAB L100.2500 0-1 % Normal BASO% 0.0 LAB L100.2550 0.0-0.9 % Normal IM GRAN % 0.200 Result Comment: IG% - Immature Granulocytes (promyelocytes, myelocytes and metamyelocytes) > 1% indicates that a LEFT SHIFT is Present. LAB L100.2620 2.0-7.7 X10 3/uL Normal Absolute Neut 3.4 LAB L100.2720 0.83-4.51 X10 3/ul Low Absolute Lymph 0.80 Performed By: #### L100.0100 #### [facility] [address] [place], [address] BASIC METABOLIC Collected: 12/05/2018 Status: F Source: [place] PROFILE ([facility]) 11:28 AM [facility] REPOSITORY TYPE CODE TESTS RESULT OUT OF RANGE REFERENCE UNITS LAB L501.0100 74-106 mg/dL High GLU 271 Result Comment: Glucose result greater than or equal to 200 mg/dL suggests DIABETES MELLITUS per A.D.A. criteria. Please note revised GLUCOSE reference range effective 2017. LAB L501.1000 7-18 mg/dL Normal BUN 13 LAB L501.1100 0.55-1.02 mg/dL Normal CREAT,SERUM 0.89 Result Comment: The validity of the calculated GFR AND GFRAA in patients over 70 years has not been determined. Clinical correlation is essential. LAB L501.1110 >60 mL/min Normal EST GFR 70 Result Comment: Non- GFR Calc LAB L501.1115 >60 mL/min Normal EST GFR - AA 84 Result Comment: GFR Calc LAB L501.1255 ml/min Normal Estimated CRCL 64.27 LAB L501.1300 10-20 RATIO Normal BUN/CRE 14.5 LAB L501.2200 8.5-10 mg/dL Normal .1 CA 8.5 LAB L501.5300 136-14 mmol/L Normal 5 NA 136 LAB L501.5600 3.5-5. mmol/L Normal 1 K 4.3 LAB L501.5900 98-107 mmol/L Normal CL 102 LAB L501.6100 21.0-3 mmol/L Normal 2.0 CO2 28.0 LAB L501.6200 5-15 Normal GAP 6 Performed By: #### L500.2500 #### [facility] [address] [place], [address] PROGRESS Observed: 11/29/2018 Status: COMPLETED Source: [place] 10:00 AM [facility] REPOSITORY [facility] ID: [id number] Author: Terrie Lopez Service: (none) Author Type: Physician Type: Progress Notes Filed: 11/29/2018 10:52 PM Note Text: Patient presents for DM SMA with Dr. Lopez and Chris Howard PharmD GOALS: A1c <8% Edel Lang is a 53 year old female was last seen by PCP, Dr. Terrie Lopez MD on 11/01 for a diabetes SMA - insulin glargine was increased to 30 units daily. Subjective: Patient has appt scheduled with PharmD this afternoon - patient would prefer to have the SMA be her appt and to schedule another meeting with PharmD at later time Interested in starting Freestyle Alejandro Requesting refill on Humalog Reports that current pen needles are causing her stomach to bruise Reports that her pharmacy, [facility], has an off-brand and no the BD ultra fine needles (wants refill sent to [facility]) Also does not have enough needles to cover injections [facility] Denies hx pancreatitis, thyroid cancer, gall bladder disease Patient reports giving an average of at least 2 units of mealtime insulin with each meal Reports Lyrica has SIGNIFICANTLY helped with diabetic neuropathy in feet Past DM medications: Metformin - diarrhea Current DM Medications: Metformin 500mg BID Glimepiride 2mg tabs - 2 tabs BID Insulin glargine (Basaglar) 30 units daily with self-titration (1 unit every 3 days if FBG >200; currently taking 34 units) Insulin lispro sliding scale (1 unit for every 50 mg/dL above 200) Current HTN Medications: Lisinopril 20mg BID Nadolol 80mg tabs - 2 tabs daily Preventative Medications: ? On MARYCARMEN/ARB: Yes ? On Statin: No ? On ASA: No ? Patient denies CP, SOB, AG, blurred vision, dizziness or lightheadedness ? Patient denies symptoms of hypoglycemia (sweating, anxiety, palpitations, hunger, and tremor) ? Patient denies symptoms hyperglycemia (polyuria, polydipsia) ? Patient denies potential medication adverse effects DIET/EXERCISE/SOCIAL Hx: ? No changes Also discussed increased pain especially with fibromyalgia flare recently. Associated with stress of Beckie being admitted to hospital, resulting increased behaviors of sonBruno--charlie a good friend (actually contacted by Bruno) came over to help with deal with depression symptoms that got so severe that could not get out of bed. Better situation since Beckie released from hospital and now Bruno doing better. Also asked about increased tremors lately and wondered if from psychiatric meds. Chris reviewed meds and noted that depakote could be causing problems. Noted that med is for migraines rather than for mood stabilizing. ALLERGIES Allergen Reactions - Nia [Fexofenadi* Shortness of Breath - Ancef [Cefazolin So* Hives - Clindamycin Diarrhea - Duoderm [Other] severe burning pain at point of contact. No redness. - Elavil [Amitriptyli* hallucinations - Macrobid [Nitrofura* Hives - Norvasc [Amlodipine] Swelling - Vancomycin Swelling legs swell and turn red PAST MEDICAL HISTORY Diagnosis Date - FIBROMYALGIA - Cellulitis and abscess of unspecified site 11/26 right leg - Depressive disorder, not elsewhere classified - Dysmetabolic syndrome X 08/09/2006 - Esophageal reflux Gastroesophageal reflux - Generalized anxiety disorder - Hx of cystoscopy 09/11/2017 - Localized osteoarthrosis not specified whether primary or secondary, other specified sites bilateral knees - Morbid obesity with BMI of 50.0-59.9, adult (HCC) - Other genital herpes 08/09/2006 - Type II or unspecified type diabetes mellitus without mention of complication, not stated as uncontrolled - Unspecified asthma(493.90) - Unspecified essential hypertension Essential hypertension - Whooping cough, unspecified organism 11/26 Current Outpatient Prescriptions: traMADol (ULTRAM) 50 mg tablet Take 1-2 tablets by mouth every 6 hours as needed for up to 30 days. orphenadrine ER (NORFLEX) 100 mg tablet Take 1 tablet by mouth twice daily as needed for Muscle Spasm. Insulin Thompsons, Disposable, (BD ULTRA-FINE EMILY PEN NEEDLE) 32 gauge x 5/32 ndle Use one needle for each dose. 1/day with Glargine. insulin glargine (BASAGLAR KWIKPEN U-100 INSULIN) 100 unit/mL (3 mL) inpn Inject 30 Units subcutaneously every morning. titrate up to 34 units as directed fluconazole (DIFLUCAN) 150 mg tablet 1 tablet today and repeat in 72 hours blood sugar diagnostic (FREESTYLE LITE STRIPS) test strip Test blood sugar(s) 6 times daily and as needed for symptoms of low or high sugars. Dx: Type 2 DM - Unontrolled E11.65 Insulin: Yes insulin glargine (BASAGLAR KWIKPEN U-100 INSULIN) 100 unit/mL (3 mL) inpn Inject 30 Units subcutaneously every morning. (titrating up as directed) divalproex ER (DEPAKOTE ER) 500 mg 24 hr tablet Take 2 tablets by mouth once daily. divalproex ER (DEPAKOTE ER) 250 mg 24 hr tablet Take 1 tablet by mouth once daily for 7 days. Add to the 500 mg once daily dose for 1 week then increase to two 500 mg daily(RX sent) ondansetron orally disintegrating (ZOFRAN ODT) 4 mg disintegrating tablet Take 1 tablet by mouth every 8 hours as needed. pregabalin (LYRICA) 100 mg capsule Take 1 capsule by mouth three times daily for 90 days. metFORMIN (GLUCOPHAGE) 500 mg tablet Take 500 mg by mouth twice daily. collagenase (SANTYL) ointment Apply 1 application to affected area once daily. To leg ulcers till healed rizatriptan (MAXALT) 5 mg tablet Take 1-2 tablets by mouth as needed. May repeat in 2 hours if needed gabapentin (NEURONTIN) 600 mg tablet Take 2 tablets by mouth three times daily for 168 days. glimepiride (AMARYL) 2 mg tablet TAKE 2 TABLETS BY MOUTH TWICE A DAY WITH MEALS DIRECTED buPROPion XL (WELLBUTRIN XL) 300 mg 24 hr tablet Take 300 mg by mouth once daily. 450mg daily benzonatate (TESSALON PERLE) 100 mg capsule Take 2 capsules by mouth three times daily as needed. valACYclovir (VALTREX) 500 mg tablet TAKE 1 TABLET BY MOUTH DAILY promethazine (PHENERGAN) 25 mg tablet Take 1 tablet by mouth every 6 hours as needed. lisinopril (ZESTRIL, PRINIVIL) 10 mg tablet Take 1 tablet by mouth twice daily. As directed fluticasone (FLONASE) 50 mcg/actuation nasal spray Use 2 Sprays in each nostril once daily. mupirocin (BACTROBAN) 2 % ointment APPLY TO AFFECTED AREA ONCE DAILY nadolol (CORGARD) 80 mg tablet Take 2 tablets by mouth once daily. lidocaine (LMX) 4 % cream Apply thin layer to affected area three times a day as needed for pain omeprazole (PRILOSEC) 20 mg capsule TAKE 1 CAPSULE BY MOUTH DAILY busPIRone (BUSPAR) 5 mg tablet Take 15 mg by mouth twice daily. Dose needs clarified with patients pharmacy. oxybutynin ER (DITROPAN XL) 15 mg 24 hr Extended Rel Tab TAKE 1 TABLET BY MOUTH ONCE DAILY. dicyclomine (BENTYL) 20 mg tablet Take 1 tablet by mouth three times daily. Omeprazole Magnesium (PRILOSEC OTC) 20 mg tablet Take 1 tablet by mouth daily before breakfast. 1/2 hr before meal. hydrocortisone (ANUSOL-HC) 2.5 % rectal cream 1 application by RECTAL route twice daily. As directed Lancets lancets Test blood sugar(s) 3 times daily. Dx: Type 2 DM - Uncontrolled E11.65 Insulin: No benzocaine-menthol (CEPACOL) 15-2.6 mg lozg lozenge Take 1 Lozenge by mouth every 3 hours as needed. diazePAM (VALIUM) 5 mg tablet Take 10 mg by mouth once daily as needed for Anxiety. triamcinolone acetonide (KENALOG) 0.1 % cream Apply 1 application to affected area twice daily. For itchy lesions for 2 weeks (torso or extremities) as directed mometasone-formoterol (DULERA) 100-5 mcg/actuation inhaler Inhale 2 Puffs as instructed twice daily. albuterol HFA (VENTOLIN HFA) 90 mcg/actuation inhaler Inhale 2 Puffs as instructed every 4 hours as needed for Wheezing/Shortness of Breath. CPAP Initiate CPAP @ 14 cm of water with humidification. EPR setting of 3. Mask (per patient preference) optional chin strap (if indicated) , filters, tubing, humidifier and lifetime supplies. COMPOUNDED PRESCRIPTION Nebulizer for home use. Diagnosis: Asthma exacerbation QUEtiapine (SEROQUEL) 300 mg tablet Take 1 tablet by mouth daily at bedtime. Also takes [address] Patterson. (Patient taking differently: Take 300 mg by mouth daily at bedtime. ) No current facility-administered medications for this visit. GLYCEMIC CONTROL: ? SMBG?s: Date Fasting AM 2 hr PP Before Lunch 2 hr PP Before Dinner 2 hr PP Bedtime 11/29 224 11/28 173 189 237 240 11/27 212 231 243 204 11/26 206 334 319 298 11/25 199 204 282 262 11/24 192 260 292 521 11/23 214 262 203 168 11/22 190 462 285 201 11/21 202 361 241 205 11/20 238 199 285 391 11/19 205 193 204 482 11/18 208 263 187 341 ? Hypoglycemia: denies anything <150; feels some lows when BG <200 ? Treats lows with food Objective: VITALS: BP 101/81 Pulse 69 Resp 24 Last 3 Encounter BP Readings: Date: BP: 11/14/2018 132/76 11/06/2018 120/82 11/02/2018 112/76 Wt: 150.6 kg (332 lb) BMI: 55.25 kg/(m2) LABS Lab Results Component Value Date HBA1C 9.1 07/03/2018 HBA1C 7.6 03/01/2018 HBA1C 7.0 09/28/2017 HBA1C 7.4 05/11/2017 CMP: Glucose 179 03/01/2018 BUN 14 03/01/2018 Creatinine 0.84 03/01/2018 Sodium 138 03/01/2018 Potassium 4.1 03/01/2018 Chloride 100 03/01/2018 CO2 23 03/01/2018 Protein, Total 7.2 03/01/2018 Albumin 4.0 03/01/2018 Calcium 8.7 03/01/2018 Alkaline Phosphatase 54 03/01/2018 Bilirubin, Total 0.3 03/01/2018 AST 25 03/01/2018 ALT 21 03/01/2018 eGFR >60 (per CMP on 03/01/18) Last Lipid Panel Lab Results Component Value Date CHOL 113 09/28/2017 Lab Results Component Value Date HDL 31 09/28/2017 Lab Results Component Value Date LDL 59 09/28/2017 Lab Results Component Value Date TG 114 09/28/2017 Albumin/Creat Ratio (mg/g) Date Value 05/11/2017 Not calculated PHARMACOTHERAPY ASSESSMENT/PLAN: 1. Uncontrolled type 2 diabetes mellitus with hyperglycemia (HCC) - ICD9: 250.02, ICD10: E11.65 (primary diagnosis) A1c goal <8%; uncontrolled (last A1c 9.1%); patient reports adherence with medications and tolerating well; both FBGs and PPGs are consistently elevated; patient interested in starting a GLP1 agonist for additional BG control and weight loss; patient denies personal or family hx of pancreatitis or MEN2/MTC; reviewed dietary adjustments to prevent ADEs: smaller more frequent meals, not eating past full, avoiding foods high in fat - patient expressed understanding; educated patient that GLP1s could potentially increase risk of pancreatitis and to stop medication and call doctor if begins to notice sharp upper GI pain; will start liraglutide today since it appears to be preferred on patient's formulary; will continue with other medications; educated on proper mngt of hypoglycemia; patient also interested in Freestyle Alejandro - will send order to pharmacy; patient not able to tolerate higher doses of metformin, even with ER formulation, so will continue with 1/2 the max dose; renal fxn and LFTs WNL and appropriate for continued use - INITIATE liraglutide 0.6mg daily x 1 week or until tolerated, then increase to 1.2mg daily. If after 2 weeks BGs are still not at goal, may increase to 1.8mg daily - CONTINUE metformin 500mg BID, glimepiride 4mg BID, insulin glargine 34 units daily, and insulin lispro sliding scale - Ordered Freestyle Alejandro - will likely require PA Patient is scheduled to see PCP on 12/05. Patient to return to clinic for PharmD f/u on 01/09. Patient verbalized understanding of instructions. Dr. Lopez and Chris Howard PharmD The patient was seen; chart reviewed and I concur with the above evaluation and plan. PharmD and I discussed with [facility] group medications for management of DM, HTN and lipids. Also reviewed diet and exercise to help with control of DM. Discussed with each patient individual meds and management of their diabetes issues. Encounter Diagnosis ICD-10-CM 1. Uncontrolled type 2 diabetes mellitus with hyperglycemia (HCC) E11.65 Insulin Thompsons, Disposable, (BD ULTRA-FINE EMILY PEN NEEDLE) 32 gauge x 5/32 ndle 2. Tremor R25.1 suspected from Depakote 3. Fibromyalgia M79.7 4. Migraine with aura and without status migrainosus, not intractable G43.109 5. Moderate episode of recurrent major depressive disorder (HCC) F33.1 Also addressed tremor--will try lower dose depakote and see if migraines stay controlled at lower dose and if tremor improves/resolves. Further evaluation and treatment as indicated. Can adjust nadolol if needed to help with migraine control. Updated medlist that off gabapentin--replaced with Lyrica which has helped with neuropathy from DM. Fibromyalgia and depression flare up with recent stressors. Doing better now. Too soon to tell if turmeric is helping with pain and inflammation. Willing to give it a few months or so to see if will help with pain. Emotional support given. 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 Helping other [facility] member to get connected to help with his issues. Terrie Lopez MD CNOV Observed: 11/29/2018 Status: COMPLETED Source: [place] 10:00 AM [facility] REPOSITORY Office Visit (INTMWS) EDEL LANG ([id number]) 1965 F Date Time Provider Department 11/29/18 10:00 AM TERRIE LOPEZ During your visit today, we recorded the following information about you: Pulse Respiration Blood pressure 69/minute 24/minute 101/81 Terrie Lopez MD 11/29/2018 10:52 PM Signed Patient presents for DM SMA with Dr. Lopez and Chris Howard PharmD GOALS: A1c <8% Edel Lang is a 53 year old female was last seen by PCP, Dr. Terrie Lopez MD on 11/01 for a diabetes SMA - insulin glargine was increased to 30 units daily. Subjective: Patient has appt scheduled with PharmD this afternoon - patient would prefer to have the SMA be her appt and to schedule another meeting with PharmD at later time Interested in starting Freestyle Alejandro Requesting refill on Humalog Reports that current pen needles are causing her stomach to bruise Reports that her pharmacy, [facility], has an off-brand and no the BD ultra fine needles (wants refill sent to [facility]) Also does not have enough needles to cover injections Patient interested in Trulicity Denies hx pancreatitis, thyroid cancer, gall bladder disease Patient reports giving an average of at least 2 units of mealtime insulin with each meal Reports Lyrica has SIGNIFICANTLY helped with diabetic neuropathy in feet Past DM medications: Metformin - diarrhea Current DM Medications: Metformin 500mg BID Glimepiride 2mg tabs - 2 tabs BID Insulin glargine (Basaglar) 30 units daily with self-titration (1 unit every 3 days if FBG >200; currently taking 34 units) Insulin lispro sliding scale (1 unit for every 50 mg/dL above 200) Current HTN Medications: Lisinopril 20mg BID Nadolol 80mg tabs - 2 tabs daily Preventative Medications: ? On MARYCARMEN/ARB: Yes ? On Statin: No ? On ASA: No ? Patient denies CP, SOB, AG, blurred vision, dizziness or lightheadedness ? Patient denies symptoms of hypoglycemia (sweating, anxiety, palpitations, hunger, and tremor) ? Patient denies symptoms hyperglycemia (polyuria, polydipsia) ? Patient denies potential medication adverse effects DIET/EXERCISE/SOCIAL Hx: ? No changes Also discussed increased pain especially with fibromyalgia flare recently. Associated with stress of Beckie being admitted to hospital, resulting increased behaviors of son, Bruno--charlie a good friend (actually contacted by Bruno) came over to help with deal with depression symptoms that got so severe that could not get out of bed. Better situation since Beckie released from hospital and now Bruno doing better. Also asked about increased tremors lately and wondered if from psychiatric meds. Chris reviewed meds and noted that depakote could be causing problems. Noted that med is for migraines rather than for mood stabilizing. ALLERGIES Allergen Reactions - Nia [Fexofenadi* Shortness of Breath - Ancef [Cefazolin So* Hives - Clindamycin Diarrhea - Duoderm [Other] severe burning pain at point of contact. No redness. - Elavil [Amitriptyli* hallucinations - Macrobid [Nitrofura* Hives - Norvasc [Amlodipine] Swelling - Vancomycin Swelling legs swell and turn red PAST MEDICAL HISTORY Diagnosis Date - FIBROMYALGIA - Cellulitis and abscess of unspecified site 11/26 right leg - Depressive disorder, not elsewhere classified - Dysmetabolic syndrome X 08/09/2006 - Esophageal reflux Gastroesophageal reflux - Generalized anxiety disorder - Hx of cystoscopy 09/11/2017 - Localized osteoarthrosis not specified whether primary or secondary, other specified sites bilateral knees - Morbid obesity with BMI of 50.0-59.9, adult (HCC) - Other genital herpes 08/09/2006 - Type II or unspecified type diabetes mellitus without mention of complication, not stated as uncontrolled - Unspecified asthma(493.90) - Unspecified essential hypertension Essential hypertension - Whooping cough, unspecified organism 11/26 Current Outpatient Prescriptions: traMADol (ULTRAM) 50 mg tablet Take 1-2 tablets by mouth every 6 hours as needed for up to 30 days. orphenadrine ER (NORFLEX) 100 mg tablet Take 1 tablet by mouth twice daily as needed for Muscle Spasm. Insulin Thompsons, Disposable, (BD ULTRA-FINE EMILY PEN NEEDLE) 32 gauge x ndle Use one needle for each dose. 1/day with Glargine. insulin glargine (BASAGLAR KWIKPEN U-100 INSULIN) 100 unit/mL (3 mL) inpn Inject 30 Units subcutaneously every morning. titrate up to 34 units as directed fluconazole (DIFLUCAN) 150 mg tablet 1 tablet today and repeat in 72 hours blood sugar diagnostic (FREESTYLE LITE STRIPS) test strip Test blood sugar(s) 6 times daily and as needed for symptoms of low or high sugars. Dx: Type 2 DM - Unontrolled E11.65 Insulin: Yes insulin glargine (BASAGLAR KWIKPEN U-100 INSULIN) 100 unit/mL (3 mL) inpn Inject 30 Units subcutaneously every morning. (titrating up as directed) divalproex ER (DEPAKOTE ER) 500 mg 24 hr tablet Take 2 tablets by mouth once daily. divalproex ER (DEPAKOTE ER) 250 mg 24 hr tablet Take 1 tablet by mouth once daily for 7 days. Add to the 500 mg once daily dose for 1 week then increase to two 500 mg daily(RX sent) ondansetron orally disintegrating (ZOFRAN ODT) 4 mg disintegrating tablet Take 1 tablet by mouth every 8 hours as needed. pregabalin (LYRICA) 100 mg capsule Take 1 capsule by mouth three times daily for 90 days. metFORMIN (GLUCOPHAGE) 500 mg tablet Take 500 mg by mouth twice daily. collagenase (SANTYL) ointment Apply 1 application to affected area once daily. To leg ulcers till healed rizatriptan (MAXALT) 5 mg tablet Take 1-2 tablets by mouth as needed. May repeat in 2 hours if needed gabapentin (NEURONTIN) 600 mg tablet Take 2 tablets by mouth three times daily for 168 days. glimepiride (AMARYL) 2 mg tablet TAKE 2 TABLETS BY MOUTH TWICE A DAY WITH MEALS DIRECTED buPROPion XL (WELLBUTRIN XL) 300 mg 24 hr tablet Take 300 mg by mouth once daily. 450mg daily benzonatate (TESSALON PERLE) 100 mg capsule Take 2 capsules by mouth three times daily as needed. valACYclovir (VALTREX) 500 mg tablet TAKE 1 TABLET BY MOUTH DAILY promethazine (PHENERGAN) 25 mg tablet Take 1 tablet by mouth every 6 hours as needed. lisinopril (ZESTRIL, PRINIVIL) 10 mg tablet Take 1 tablet by mouth twice daily. As directed fluticasone (FLONASE) 50 mcg/actuation nasal spray Use 2 Sprays in each nostril once daily. mupirocin (BACTROBAN) 2 % ointment APPLY TO AFFECTED AREA ONCE DAILY nadolol (CORGARD) 80 mg tablet Take 2 tablets by mouth once daily. lidocaine (LMX) 4 % cream Apply thin layer to affected area three times a day as needed for pain omeprazole (PRILOSEC) 20 mg capsule TAKE 1 CAPSULE BY MOUTH DAILY busPIRone (BUSPAR) 5 mg tablet Take 15 mg by mouth twice daily. Dose needs clarified with patients pharmacy. oxybutynin ER (DITROPAN XL) 15 mg 24 hr Extended Rel Tab TAKE 1 TABLET BY MOUTH ONCE DAILY. dicyclomine (BENTYL) 20 mg tablet Take 1 tablet by mouth three times daily. Omeprazole Magnesium (PRILOSEC OTC) 20 mg tablet Take 1 tablet by mouth daily before breakfast. 1/2 hr before meal. hydrocortisone (ANUSOL-HC) 2.5 % rectal cream 1 application by RECTAL route twice daily. As directed Lancets lancets Test blood sugar(s) 3 times daily. Dx: Type 2 DM - Uncontrolled E11.65 Insulin: No benzocaine-menthol (CEPACOL) 15-2.6 mg lozg lozenge Take 1 Lozenge by mouth every 3 hours as needed. diazePAM (VALIUM) 5 mg tablet Take 10 mg by mouth once daily as needed for Anxiety. triamcinolone acetonide (KENALOG) 0.1 % cream Apply 1 application to affected area twice daily. For itchy lesions for 2 weeks (torso or extremities) as directed mometasone-formoterol (DULERA) 100-5 mcg/actuation inhaler Inhale 2 Puffs as instructed twice daily. albuterol HFA (VENTOLIN HFA) 90 mcg/actuation inhaler Inhale 2 Puffs as instructed every 4 hours as needed for Wheezing/Shortness of Breath. CPAP Initiate CPAP @ 14 cm of water with humidification. EPR setting of 3. Mask (per patient preference) optional chin strap (if indicated) , filters, tubing, humidifier and lifetime supplies. COMPOUNDED PRESCRIPTION Nebulizer for home use. Diagnosis: Asthma exacerbation QUEtiapine (SEROQUEL) 300 mg tablet Take 1 tablet by mouth daily at bedtime. Also takes [address] Patterson. (Patient taking differently: Take 300 mg by mouth daily at bedtime. ) No current facility-administered medications for this visit. GLYCEMIC CONTROL: ? SMBG?s: Date Fasting AM 2 hr PP Before Lunch 2 hr PP Before Dinner 2 hr PP Bedtime 11/29 224 11/28 173 189 237 240 11/27 212 231 243 204 11/26 206 334 319 298 11/25 199 204 282 262 11/24 192 260 292 521 11/23 214 262 203 168 11/22 190 462 285 201 11/21 202 361 241 205 11/20 238 199 285 391 11/19 205 193 204 482 11/18 208 263 187 341 ? Hypoglycemia: denies anything <150; feels some lows when BG <200 ? Treats lows with food Objective: VITALS: BP 101/81 Pulse 69 Resp 24 Last 3 Encounter BP Readings: Date: BP: 11/14/2018 132/76 11/06/2018 120/82 11/02/2018 112/76 Wt: 150.6 kg (332 lb) BMI: 55.25 kg/(m2) LABS Lab Results Component Value Date HBA1C 9.1 07/03/2018 HBA1C 7.6 03/01/2018 HBA1C 7.0 09/28/2017 HBA1C 7.4 05/11/2017 CMP: Glucose 179 03/01/2018 BUN 14 03/01/2018 Creatinine 0.84 03/01/2018 Sodium 138 03/01/2018 Potassium 4.1 03/01/2018 Chloride 100 03/01/2018 CO2 23 03/01/2018 Protein, Total 7.2 03/01/2018 Albumin 4.0 03/01/2018 Calcium 8.7 03/01/2018 Alkaline Phosphatase 54 03/01/2018 Bilirubin, Total 0.3 03/01/2018 AST 25 03/01/2018 ALT 21 03/01/2018 eGFR >60 (per CMP on 03/01/18) Last Lipid Panel Lab Results Component Value Date CHOL 113 09/28/2017 Lab Results Component Value Date HDL 31 09/28/2017 Lab Results Component Value Date LDL 59 09/28/2017 Lab Results Component Value Date TG 114 09/28/2017 Albumin/Creat Ratio (mg/g) Date Value 05/11/2017 Not calculated PHARMACOTHERAPY ASSESSMENT/PLAN: 1. Uncontrolled type 2 diabetes mellitus with hyperglycemia (HCC) - ICD9: 250.02, ICD10: E11.65 (primary diagnosis) A1c goal <8%; uncontrolled (last A1c 9.1%); patient reports adherence with medications and tolerating well; both FBGs and PPGs are consistently elevated; patient interested in starting a GLP1 agonist for additional BG control and weight loss; patient denies personal or family hx of pancreatitis or MEN2/MTC; reviewed dietary adjustments to prevent ADEs: smaller more frequent meals, not eating past full, avoiding foods high in fat - patient expressed understanding; educated patient that GLP1s could potentially increase risk of pancreatitis and to stop medication and call doctor if begins to notice sharp upper GI pain; will start liraglutide today since it appears to be preferred on patient's formulary; will continue with other medications; educated on proper mngt of hypoglycemia; patient also interested in Freestyle Alejandro - will send order to pharmacy; patient not able to tolerate higher doses of metformin, even with ER formulation, so will continue with 1/2 the max dose; renal fxn and LFTs WNL and appropriate for continued use - INITIATE liraglutide 0.6mg daily x 1 week or until tolerated, then increase to 1.2mg daily. If after 2 weeks BGs are still not at goal, may increase to 1.8mg daily - CONTINUE metformin 500mg BID, glimepiride 4mg BID, insulin glargine 34 units daily, and insulin lispro sliding scale - Ordered Freestyle Alejandro - will likely require PA Patient is scheduled to see PCP on 12/05. Patient to return to clinic for PharmD f/u on 01/09. Patient verbalized understanding of instructions. Dr. Lopez and Chris Howard, PharmD The patient was seen; chart reviewed and I concur with the above evaluation and plan. PharmD and I discussed with DM SMA group medications for management of DM, HTN and lipids. Also reviewed diet and exercise to help with control of DM. Discussed with each patient individual meds and management of their diabetes issues. Encounter Diagnosis ICD-10-CM 1. Uncontrolled type 2 diabetes mellitus with hyperglycemia (HCC) E11.65 Insulin Thompsons, Disposable, (BD ULTRA-FINE EMILY PEN NEEDLE) 32 gauge x 532 ndle 2. Tremor R25.1 suspected from Depakote 3. Fibromyalgia M79.7 4. Migraine with aura and without status migrainosus, not intractable G43.109 5. Moderate episode of recurrent major depressive disorder (HCC) F33.1 Also addressed tremor--will try lower dose depakote and see if migraines stay controlled at lower dose and if tremor improves/resolves. Further evaluation and treatment as indicated. Can adjust nadolol if needed to help with migraine control. Updated medlist that off gabapentin--replaced with Lyrica which has helped with neuropathy from DM. Fibromyalgia and depression flare up with recent stressors. Doing better now. Too soon to tell if turmeric is helping with pain and inflammation. Willing to give it a few months or so to see if will help with pain. Emotional support given. 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 Helping other [facility] member to get connected to help with his issues. Terrie Lopez MD Referring Provider: SELF [[id number]] Allergies As of Date: 11/29/2018 Noted Allergy Reaction NIA (FEXOFENADINE HCL) 01/25/2006 12 - Shortness of Breath ANCEF (CEFAZOLIN SODIUM) 01/25/2006 4 - Hives CLINDAMYCIN 01/05/2007 6 - Diarrhea duoderm [Other] 05/21/2007 Comments: severe burning pain at point of contact. No redness. ELAVIL (AMITRIPTYLINE) 04/27/2007 Comments: hallucinations MACROBID (NITROFURANTOIN MONOHYD/*05/15/2007 4 - Hives NORVASC (AMLODIPINE) 12/11/2008 7 - Swelling VANCOMYCIN 08/01/2018 7 - Swelling Comments: legs swell and turn red Date Reviewed: 11/29/2018 Reviewed by: Tiffany Martin LPN - Fully Assessed Reason for Visit: [facility] [Other] Primary Visit Diagnosis:Uncontrolled type 2 diabetes mellitus with hyperglycemia (HCC) [E11.65] Other Visit Diagnoses:Tremor [R25.1] Comment:suspected from Depakote Fibromyalgia [M79.7] Migraine with aura and without status migrainosus, not intractable [G43.109] Moderate episode of recurrent major depressive disorder (HCC) [F33.1] Order(s):Insulin Thompsons, Disposable, (BD ULTRA-FINE EMILY PEN NEEDLE) 32 gauge x 5/32 ndleUse one needle for each dose. 4 injections daily (glargine daily and Humalog TID)Disp: 200 EachRfl: 11 divalproex ER (DEPAKOTE ER) 250 mg 24 hr tabletTake 1 tablet by mouth once daily.Disp: 30 tabletRfl: 5 ondansetron orally disintegrating (ZOFRAN ODT) 4 mg disintegrating tabletTake 1 tablet by mouth every 8 hours as needed.Disp: 24 tabletRfl: 2 liraglutide (VICTOZA) 0.6 mg/ 0.1 ml subcutaneous pen injectorInject 0.6mg daily for 1 week, then increase to 1.2mg daily. If BG not at goal after 2 weeks, increase to 1.8mg daily.Disp: 2 PenRfl: 5 flash glucose scanning reader (FREESTYLE ALEJANDRO 14 DAY READER) miscUse as directed to check blood sugarsDisp: 1 EachRfl: 0 flash glucose sensor (FREESTYLE ALEJANDRO 14 DAY SENSOR) kitPlace 1 sensor on back of arm every 14 days to check blood sugar. Then replace with new sensor and switch arms.Disp: 2 KitRfl: 5 Prescriptions as of 11/29/2018 Sig: PEN NEEDLE, DIABETIC 32 GAUGE* Use one needle for each dose.* DIVALPROEX ER 250 MG TABLET,E* Take 1 tablet by mouth once d* ONDANSETRON 4 MG DISINTEGRATI* Take 1 tablet by mouth every * LIRAGLUTIDE 0.6 MG/0.1 ML (18* Inject 0.6mg daily for 1 week* FLASH GLUCOSE SCANNING READER Use as directed to check bloo* FLASH GLUCOSE SENSOR KIT Place 1 sensor on back of arm* TRAMADOL 50 MG TABLET Take 1-2 tablets by mouth nathalie* ORPHENADRINE CITRATE ER 100 M* Take 1 tablet by mouth twice * INSULIN GLARGINE (U-100) 100 * Inject 30 Units subcutaneousl* FLUCONAZOLE 150 MG TABLET 1 tablet today and repeat in * BLOOD SUGAR DIAGNOSTIC STRIPS Test blood sugar(s) 6 times d* INSULIN GLARGINE (U-100) 100 * Inject 30 Units subcutaneousl* PREGABALIN 100 MG CAPSULE Take 1 capsule by mouth three* METFORMIN 500 MG TABLET Take 500 mg by mouth twice da* COLLAGENASE CLOSTRIDIUM HISTO* Apply 1 application to affect* RIZATRIPTAN 5 MG TABLET Take 1-2 tablets by mouth as * GLIMEPIRIDE 2 MG TABLET TAKE 2 TABLETS BY MOUTH TWICE* BUPROPION XL 300 MG 24 HR TAB Take 300 mg by mouth once josé* BENZONATATE 100 MG CAPSULE Take 2 capsules by mouth thre* VALACYCLOVIR 500 MG TABLET TAKE 1 TABLET BY MOUTH DAILY PROMETHAZINE 25 MG TABLET Take 1 tablet by mouth every * LISINOPRIL 10 MG TABLET Take 1 tablet by mouth twice * FLUTICASONE 50 MCG/ACTUATION * Use 2 Sprays in each nostril * MUPIROCIN 2 % TOPICAL OINTMENT APPLY TO AFFECTED AREA ONCE D* NADOLOL 80 MG TABLET Take 2 tablets by mouth once * LIDOCAINE 4 % TOPICAL CREAM Apply thin layer to affected * OMEPRAZOLE 20 MG CAPSULE,MELINDA* TAKE 1 CAPSULE BY MOUTH DAILY BUSPIRONE 5 MG TABLET Take 15 mg by mouth twice josé* OXYBUTYNIN CHLORIDE ER 15 MG * TAKE 1 TABLET BY MOUTH ONCE D* DICYCLOMINE 20 MG TABLET Take 1 tablet by mouth three * OMEPRAZOLE MAGNESIUM 20 MG TA* Take 1 tablet by mouth daily * HYDROCORTISONE 2.5 % TOPICAL * 1 application by RECTAL route* LANCETS Test blood sugar(s) 3 times d* BENZOCAINE-MENTHOL 15 MG-2.6 * Take 1 Lozenge by mouth every* DIAZEPAM 5 MG TABLET Take 10 mg by mouth once kala* TRIAMCINOLONE ACETONIDE 0.1 %* Apply 1 application to affect* MOMETASONE-FORMOTEROL HFA 100* Inhale 2 Puffs as instructed * ALBUTEROL SULFATE HFA 90 MCG/* Inhale 2 Puffs as instructed * CPAP Initiate CPAP @ 14 cm of wate* COMPOUNDED PRESCRIPTION Nebulizer for home use. Diagn* QUETIAPINE 300 MG TABLET Take 1 tablet by mouth daily * Patient taking differently: Take 300 mg by mouth daily at* Medication notes this encounter PEN NEEDLE, DIABETIC 32 GAUGE X 5/32 >> Terrie Lopez MD 11/29/2018 11:15 AM >> TERRIE LOPEZ MD [facility] Nov 29, 2018 11:15 AM Non-BD given through [employer]; needed sent to [facility] that has BD needles Non-BD causes bruising GABAPENTIN 600 MG TABLET >> Terrie Lopez MD 11/29/2018 11:26 AM Weaned off Problem List As Of Date 11/29/2018 Noted Resolved ESOPHAGEAL REFLUX [K21.9] More... Unspecified asthma(493.90) [J45.909] 06/02/2017 More... 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 Unspecified vitamin D deficiency [E55.9] INVALID FOR*02/27/2013 GENITAL HERPES NEC [A60.00] INVALID FOR* URGE AND STRESS MIXED INCONTINENCE [N39.46] INVALID FOR* LACERATION -NOT COMPLICATED BREAST [S21.009A] INVALID FOR*02/27/2013 Diabetes (HCC) [E11.9] INVALID FOR* Enthesopathy of unspecified site [M77.9] INVALID FOR*02/27/2013 Adenopathy, Hilar [R59.0] INVALID FOR* Major depressive disorder, recurrent episode (H*INVALID FOR* Abnormal mammogram, unspecified [R92.8] INVALID FOR*06/02/2017 Wound, open, breast [S21.009A] INVALID FOR*02/27/2013 Benign neoplasm of skin of lower limb, includin*INVALID FOR*02/27/2013 Umbilical hernia without mention of obstruction*INVALID FOR*06/02/2017 Ventral hernia, unspecified, without mention of*INVALID FOR*06/02/2017 Anxiety [F41.9] INVALID FOR* Vitamin d deficiency [E55.9] INVALID FOR* Urge incontinence of urine [N39.41] INVALID FOR*06/02/2017 Pain of left lower leg [M79.662] INVALID FOR* Carpal tunnel syndrome of right wrist [G56.01] INVALID FOR*06/02/2017 Morbid obesity with BMI of 45.0-49.9, adult (HC* ABRAM (obstructive sleep apnea) [G47.33] INVALID FOR* More... Left carpal tunnel syndrome [G56.02] INVALID FOR*06/02/2017 Asthma with COPD with exacerbation (HCC) [J44.1*INVALID FOR* HTN (hypertension) [I10] INVALID FOR* Ganglion cyst of finger of right hand [M67.441] INVALID FOR* More... Prescriptions ordered this encounter Disp Refills Start End PEN NEEDLE, DIABETIC 32 GAUGE X 200 * 11 11/29/2018 Sig: Use one needle for each dose. 4 injections daily (glargine daily and Humalog TID) DIVALPROEX ER 250 MG TABLET,EXTENDED* 30 t* 5 11/29/2018 Cmt: Intentional dose decrease from 500 mg dose Route: ORAL Sig: Take 1 tablet by mouth once daily. ONDANSETRON 4 MG DISINTEGRATING TABL* 24 t* 2 11/29/2018 Route: ORAL Sig: Take 1 tablet by mouth every 8 hours as needed. LIRAGLUTIDE 0.6 MG/0.1 ML (18 MG/3 M* 2 Pen 5 11/29/2018 Sig: Inject 0.6mg daily for 1 week, then increase to 1.2mg daily. If BG not at goal after 2 weeks, increase to 1.8mg daily. FLASH GLUCOSE SCANNING READER 1 Ea* 0 11/29/2018 Sig: Use as directed to check blood sugars FLASH GLUCOSE SENSOR KIT 2 Kit 5 11/29/2018 Sig: Place 1 sensor on back of arm every 14 days to check blood sugar. Then replace with new sensor and switch arms. Medications Discontinued During This Encounter Insulin Thompsons, Disposable, (BD ULT* 100 * 5 11/08/2018 11/29/2018 Sig: Use one needle for each dose. 1/day with Glargine. Disc: Reason for discontinue is not on file. gabapentin (NEURONTIN) 600 mg tablet 168 * 5 09/07/2018 11/29/2018 Cmt: Maximum Refills Reached Route: ORAL Sig: Take 2 tablets by mouth three times daily for 168 days. Disc: Reason for discontinue is not on file. gabapentin (NEURONTIN) 600 mg tablet 168 * 5 09/07/2018 11/29/2018 Cmt: Maximum Refills Reached Route: ORAL Sig: Take 2 tablets by mouth three times daily for 168 days. Disc: Reason for discontinue is not on file. divalproex ER (DEPAKOTE ER) 250 mg 2* 7 ta* 0 11/01/2018 11/29/2018 Route: ORAL Sig: Take 1 tablet by mouth once daily for 7 days. Add to the 500 mg once daily dose for 1 week then increase to two 500 mg daily(RX sent) Disc: Reason for discontinue is not on file. divalproex ER (DEPAKOTE ER) 500 mg 2* 60 t* 11 11/01/2018 11/29/2018 Cmt: Intentional dose increase Route: ORAL Sig: Take 2 tablets by mouth once daily. Disc: Reason for discontinue is not on file. ondansetron orally disintegrating (Z* 12 t* 2 10/22/2018 11/29/2018 Route: ORAL Sig: Take 1 tablet by mouth every 8 hours as needed. Disc: Reason for discontinue is not on file. Encounter Status:Closed by TERRIE LOPEZ MD on 11/29/18 VENOUS DUPLEX LOWER Observed: 11/18/2018 Status: F Source: [place] EXTREMITY 1:26 PM [facility] REPOSITORY [facility] Cardiovascular Services [address] [place] [id number] Venous Duplex US, Unilateral 11/18/18 1144 MR#: [id number] Acct: [id number] Name: EDEL LANG Rep #: [id number] : 1965 53 From: Dontrell Batres MD Attending Dr: Status: DEP ER Ordering Dr: Vinay Mai MD Date: 11/17/18 Location: ED Sex: F C Admitted: Reason For Study: RLE pain RIGHT GSV is normal. CFV is compressible, spontaneous, phasic, competent and demonstrates normal augmentation. FV is compressible, spontaneous, phasic, competent and demonstrates normal augmentation. POP V is compressible, spontaneous, phasic, competent and demonstrates normal augmentation. T/P Trunk is compressible. PTV is compressible. Unable to visualize PER V. Procedure Exam performed in department. The study was technically difficult. The exam was diagnostic. A preliminary report was called and/or faxed to Dr. Lopez AND ED. Interpretation Summary There is no evidence of right lower extremity deep vein thrombosis. Right greater saphenous vein appears patent and compressible segmentally. Unable to visualize right peroneal vein Technically difficult exam Ordering Physician: Vinay Mai Referring Physician: Terrie Lopez Performed By: Ghazal Byrd RDCS, RVT 11/18/18 1325 Date Dontrell Batres MD CC: Vinay Mai MD; Terrie Lopez MD Date Dictated: 11/18/18 1144 Date Transcribed: 11/18/18 132 [employer] Operator: Signed DISCHARGE INSTRUCTION Observed: 11/17/2018 Status: F Source: [place] 2:03 PM [facility] REPOSITORY [facility] Medical Records Department [address] [place] [id number] Discharge Instruction 11/17/18 1402 MR#: [id number] Acct: [id number] Name: EDEL LANG Rep #: [id number] : 1965 53 From: Vinay Mai MD PCP: Terrie Lopez MD Status: REG ER ED Disposition - Plan for ED Patient: Disposition: Home or Assisted Living Chief Complaint: Lower Extremity Injury Instructions: Managing Fibromyalgia Prescriptions: Diflunisal [Dolobid] 500 mg PO TID #14 tab Referrals: Terrie Lopez MD [Primary Care Provider] - What to do if you have Problems For any increased pain, shortness of breath, bleeding, nausea or vomiting, chest pain, or any unexpected problems, contact your Primary Care Provider. Call [facility] ([phone]) or report to the closest Emergency Room. Call 911 if necessary. 11/17/18 1403 <Electronically signed by Vinay Mai MD> Date Vinay Mai MD Cosigner Signature (If Indicated): Date CC: Terrie Lopez MD EMERGENCY DEPARTMENT Observed: 11/17/2018 Status: F Source: [place] SUMMARY 2:02 PM [facility] REPOSITORY [facility] Medical Records Department [address] [place] [address] Emergency Department Summary 11/17/18 1329 MR#: [id number] Acct: [id number] Name: EDEL LANG Rep #: [id number] : 1965 53 From: Vinay Mai MD PCP: Terrie Lopez MD Status: REG ER - ER Visit Summary Date of Service: 11/17/18 Chief Complaint: Right leg pain/fibromyalgia flare History of Present Illness: The patient is a 53 F who tells me she is having a fibromyalgia flare. It started about 6 days ago. She has pain in the right hip, right knee and right ankle area. Hurts to walk on it. She has tried Norflex, tramadol and Lyrica but it is not helping. She states that when she does have a flare it occurs in these areas. She states that she has a history of a DVT about 30 years ago. Physical Examination: Vital signs reviewed. Right lower extremity exam reveals tenderness in the thigh, hip, knee, leg and ankle area. These are all tender when you push on them. She has no swelling or erythema. She has full range of motion with pain. Test Results: Ultrasound duplex will be obtained tomorrow Emergency Department Course and Treatment: Patient was given [place] but it did not help. She will get a shot of Toradol. She will go home with NSAIDs will follow up tomorrow for her ultrasound Treatment Plan: [] Disposition: Discharge Impression: Right leg pain History of fibromyalgia This note was generated with [employer] dictation software. It may contain incorrect words, spelling, and punctuation that were not noted in review of the chart prior to signing ED Disposition - Plan for ED Patient: Chief Complaint: Lower Extremity Injury Referrals: Terrie Lopez MD [Primary Care Provider] - What to do if you have Problems For any increased pain, shortness of breath, bleeding, nausea or vomiting, chest pain, or any unexpected problems, contact your Primary Care Provider. Call [facility] ([phone]) or report to the closest Emergency Room. Call 911 if necessary. 11/17/18 1402 <Electronically signed by Vinay Mai MD> Date Vinay Mai MD Cosigner Signature (If Indicated): Date CC: Terrie Lopez MD CNOV Observed: 11/14/2018 Status: COMPLETED Source: [place] 10:20 AM [facility] REPOSITORY Office Visit (FAMPWS) EDEL LANG ([id number]) 1965 F Date Time Provider Department 11/14/18 10:20 AM HANSA GAMBINO ([facility]) FAMPWS During your visit today, we recorded the following information about you: Pulse Respiration Blood pressure Weight 76/minute 18/minute 132/76 150.6 kg Hansa Gambino APRN.CNP 11/14/2018 10:45 AM Signed 11/14/2018 Patient presents with: Recheck: one week f/up SUBJECTIVE: This is a 53 year old that is here today for Above Complaints. Seen on 11/06/2018 by Emile Ty APRN, for skin infection for left upper buttocks. Had previously been seen in on 11/02/2018 for this and placed on doxycyline. Since last office visit has continued to take antibiotic and has tolerated without side effects. Reports has had complete resolution of symptoms. Denies fevers, chills, swelling, increased pain, tenderness, redness, or drainage from area. PAST MEDICAL HISTORY Diagnosis Date - FIBROMYALGIA - Cellulitis and abscess of unspecified site 11/26 right leg - Depressive disorder, not elsewhere classified - Dysmetabolic syndrome X 08/09/2006 - Esophageal reflux Gastroesophageal reflux - Generalized anxiety disorder - Hx of cystoscopy 09/11/2017 - Localized osteoarthrosis not specified whether primary or secondary, other specified sites bilateral knees - Morbid obesity with BMI of 50.0-59.9, adult (HCC) - Other genital herpes 08/09/2006 - Type II or unspecified type diabetes mellitus without mention of complication, not stated as uncontrolled - Unspecified asthma(493.90) - Unspecified essential hypertension Essential hypertension - Whooping cough, unspecified organism 11/26 ALLERGIES Nia [Fexofenadine Hcl]; Ancef [Cefazolin Sodium]; Clindamycin; Duoderm [Other]; Elavil [Amitriptyline]; Macrobid [Nitrofurantoin Monohyd/M-Cryst]; Norvasc [Amlodipine]; Vancomycin MEDICATIONS Current Outpatient Prescriptions: albuterol HFA (VENTOLIN HFA) 90 mcg/actuation inhaler Inhale 2 Puffs as instructed every 4 hours as needed for Wheezing/Shortness of Breath. benzocaine-menthol (CEPACOL) 15-2.6 mg lozg lozenge Take 1 Lozenge by mouth every 3 hours as needed. (Patient not taking: Reported on 06/07/2018 ) benzonatate (TESSALON PERLE) 100 mg capsule Take 2 capsules by mouth three times daily as needed. blood sugar diagnostic (FREESTYLE LITE STRIPS) test strip Test blood sugar(s) 6 times daily and as needed for symptoms of low or high sugars. Dx: Type 2 DM - Unontrolled E11.65 Insulin: Yes buPROPion XL (WELLBUTRIN XL) 300 mg 24 hr tablet Take 300 mg by mouth once daily. 450mg daily busPIRone (BUSPAR) 5 mg tablet Take 15 mg by mouth twice daily. Dose needs clarified with patients pharmacy. collagenase (SANTYL) ointment Apply 1 application to affected area once daily. To leg ulcers till healed COMPOUNDED PRESCRIPTION Nebulizer for home use. Diagnosis: Asthma exacerbation CPAP Initiate CPAP @ 14 cm of water with humidification. EPR setting of 3. Mask (per patient preference) optional chin strap (if indicated) , filters, tubing, humidifier and lifetime supplies. diazePAM (VALIUM) 5 mg tablet Take 10 mg by mouth once daily as needed for Anxiety. dicyclomine (BENTYL) 20 mg tablet Take 1 tablet by mouth three times daily. divalproex ER (DEPAKOTE ER) 250 mg 24 hr tablet Take 1 tablet by mouth once daily for 7 days. Add to the 500 mg once daily dose for 1 week then increase to two 500 mg daily(RX sent) divalproex ER (DEPAKOTE ER) 500 mg 24 hr tablet Take 2 tablets by mouth once daily. doxycycline hyclate (VIBRAMYCIN) 100 mg capsule Take 1 capsule by mouth twice daily for 5 days. fluconazole (DIFLUCAN) 150 mg tablet 1 tablet today and repeat in 72 hours fluticasone (FLONASE) 50 mcg/actuation nasal spray Use 2 Sprays in each nostril once daily. gabapentin (NEURONTIN) 600 mg tablet Take 2 tablets by mouth three times daily for 168 days. glimepiride (AMARYL) 2 mg tablet TAKE 2 TABLETS BY MOUTH TWICE A DAY WITH MEALS DIRECTED hydrocortisone (ANUSOL-HC) 2.5 % rectal cream 1 application by RECTAL route twice daily. As directed insulin glargine (BASAGLAR KWIKPEN U-100 INSULIN) 100 unit/mL (3 mL) inpn Inject 30 Units subcutaneously every morning. (titrating up as directed) insulin glargine (BASAGLAR KWIKPEN U-100 INSULIN) 100 unit/mL (3 mL) inpn Inject 30 Units subcutaneously every morning. titrate up to 34 units as directed Insulin Thompsons, Disposable, (BD ULTRA-FINE EMILY PEN NEEDLE) 32 gauge x 32 ndle Use one needle for each dose. 1/day with Glargine. Lancets lancets Test blood sugar(s) 3 times daily. Dx: Type 2 DM - Uncontrolled E11.65 Insulin: No lidocaine (LMX) 4 % cream Apply thin layer to affected area three times a day as needed for pain lisinopril (ZESTRIL, PRINIVIL) 10 mg tablet Take 1 tablet by mouth twice daily. As directed metFORMIN (GLUCOPHAGE) 500 mg tablet Take 500 mg by mouth twice daily. mometasone-formoterol (DULERA) 100-5 mcg/actuation inhaler Inhale 2 Puffs as instructed twice daily. mupirocin (BACTROBAN) 2 % ointment APPLY TO AFFECTED AREA ONCE DAILY nadolol (CORGARD) 80 mg tablet Take 2 tablets by mouth once daily. omeprazole (PRILOSEC) 20 mg capsule TAKE 1 CAPSULE BY MOUTH DAILY Omeprazole Magnesium (PRILOSEC OTC) 20 mg tablet Take 1 tablet by mouth daily before breakfast. 1/2 hr before meal. (Patient not taking: Reported on 07/03/2018 ) ondansetron orally disintegrating (ZOFRAN ODT) 4 mg disintegrating tablet Take 1 tablet by mouth every 8 hours as needed. orphenadrine ER (NORFLEX) 100 mg tablet Take 1 tablet by mouth twice daily as needed for Muscle Spasm. oxybutynin ER (DITROPAN XL) 15 mg 24 hr Extended Rel Tab TAKE 1 TABLET BY MOUTH ONCE DAILY. pregabalin (LYRICA) 100 mg capsule Take 1 capsule by mouth three times daily for 90 days. promethazine (PHENERGAN) 25 mg tablet Take 1 tablet by mouth every 6 hours as needed. QUEtiapine (SEROQUEL) 300 mg tablet Take 1 tablet by mouth daily at bedtime. Also takes [address] Patterson. (Patient taking differently: Take 300 mg by mouth daily at bedtime. ) rizatriptan (MAXALT) 5 mg tablet Take 1-2 tablets by mouth as needed. May repeat in 2 hours if needed traMADol (ULTRAM) 50 mg tablet Take 1-2 tablets by mouth every 6 hours as needed for up to 90 days. triamcinolone acetonide (KENALOG) 0.1 % cream Apply 1 application to affected area twice daily. For itchy lesions for 2 weeks (torso or extremities) as directed valACYclovir (VALTREX) 500 mg tablet TAKE 1 TABLET BY MOUTH DAILY No current facility-administered medications for this visit. Medications and allergies reviewed by this provider. 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 OBJECTIVE: BP 132/76 (BP Site: Left Arm, BP Position: Sitting, BP Cuff Size: Large Adult) Pulse 76 Resp 18 Wt (!) 150.6 kg (332 lb) BMI 55.25 kg/m? . Vital signs reviewed by this provider. APPEARANCE Well appearing, alert, in no acute distress, well- hydrated, well nourished. SKIN Skin color, texture, turgor normal, no suspicious rashes or lesions. No tenderness, swelling, warmth, or open area to left buttock ASSESSMENT/PLAN: 1. Skin infection - ICD9: 686.9, ICD10: L08.9 (primary diagnosis) - resolved - is to finish antibiotic - Follow-up as scheduled,sooner if needed 2. Screening for breast cancer - ICD9: V76.10, ICD10: Z12.31 - [facility] SCREENING Hansa Podlogjeremy, INDUSTRIAL MANAGEMENT TEACHER.CATH LAB RADIOLOGICAL TECHNOLOGIST Prescription instructions reviewed with patient as applicable. Patient advised if symptoms do not improve or if symptoms worsen sooner, to contact their primary care physician. Potential red flag symptoms discussed with the patient. Reviewed appropriate action plan to take if red flag symptoms occur. Patient agreeable to treatment plan. Referring Provider: TERRIE LOPEZ [[id number]] Allergies As of Date: 11/14/2018 Noted Allergy Reaction NIA (FEXOFENADINE HCL) 01/25/2006 12 - Shortness of Breath ANCEF (CEFAZOLIN SODIUM) 01/25/2006 4 - Hives CLINDAMYCIN 01/05/2007 6 - Diarrhea duoderm [Other] 05/21/2007 Comments: severe burning pain at point of contact. No redness. ELAVIL (AMITRIPTYLINE) 04/27/2007 Comments: hallucinations MACROBID (NITROFURANTOIN MONOHYD/*05/15/2007 4 - Hives NORVASC (AMLODIPINE) 12/11/2008 7 - Swelling VANCOMYCIN 08/01/2018 7 - Swelling Comments: legs swell and turn red Date Reviewed: 11/14/2018 Reviewed by: Yessi Vasquez (Power Plant Assistant) VONDA Castro - Fully Assessed Reason for Visit: Recheck [92] Cmt: one week f/up Primary Visit Diagnosis:Skin infection [L08.9] Other Visit Diagnosis:Screening for breast cancer [Z12.31] Order(s):[facility] SCREENING [[id number]] Order #: [id number] FUTURE orphenadrine ER (NORFLEX) 100 mg tabletTake 1 tablet by mouth twice daily as needed for Muscle Spasm.Disp: 60 tabletRfl: 2 Prescriptions as of 11/14/2018 Sig: ALBUTEROL SULFATE HFA 90 MCG/* Inhale 2 Puffs as instructed * BENZOCAINE-MENTHOL 15 MG-2.6 * Take 1 Lozenge by mouth every* BENZONATATE 100 MG CAPSULE Take 2 capsules by mouth thre* BLOOD SUGAR DIAGNOSTIC STRIPS Test blood sugar(s) 6 times d* BUPROPION XL 300 MG 24 HR TAB Take 300 mg by mouth once josé* BUSPIRONE 5 MG TABLET Take 15 mg by mouth twice josé* COLLAGENASE CLOSTRIDIUM HISTO* Apply 1 application to affect* COMPOUNDED PRESCRIPTION Nebulizer for home use. Diagn* DIAZEPAM 5 MG TABLET Take 10 mg by mouth once kala* DICYCLOMINE 20 MG TABLET Take 1 tablet by mouth three * DIVALPROEX ER 250 MG TABLET,E* Take 1 tablet by mouth once d* DIVALPROEX ER 500 MG TABLET,E* Take 2 tablets by mouth once * DOXYCYCLINE HYCLATE 100 MG CA* Take 1 capsule by mouth twice* FLUCONAZOLE 150 MG TABLET 1 tablet today and repeat in * FLUTICASONE 50 MCG/ACTUATION * Use 2 Sprays in each nostril * GABAPENTIN 600 MG TABLET Take 2 tablets by mouth three* HYDROCORTISONE 2.5 % TOPICAL * 1 application by RECTAL route* INSULIN GLARGINE (U-100) 100 * Inject 30 Units subcutaneousl* INSULIN GLARGINE (U-100) 100 * Inject 30 Units subcutaneousl* PEN NEEDLE, DIABETIC 32 GAUGE* Use one needle for each dose.* LANCETS Test blood sugar(s) 3 times d* LIDOCAINE 4 % TOPICAL CREAM Apply thin layer to affected * LISINOPRIL 10 MG TABLET Take 1 tablet by mouth twice * METFORMIN 500 MG TABLET Take 500 mg by mouth twice da* MOMETASONE-FORMOTEROL HFA 100* Inhale 2 Puffs as instructed * MUPIROCIN 2 % TOPICAL OINTMENT APPLY TO AFFECTED AREA ONCE D* NADOLOL 80 MG TABLET Take 2 tablets by mouth once * OMEPRAZOLE 20 MG CAPSULE,MELINDA* TAKE 1 CAPSULE BY MOUTH DAILY OMEPRAZOLE MAGNESIUM 20 MG TA* Take 1 tablet by mouth daily * ONDANSETRON 4 MG DISINTEGRATI* Take 1 tablet by mouth every * ORPHENADRINE CITRATE ER 100 M* Take 1 tablet by mouth twice * OXYBUTYNIN CHLORIDE ER 15 MG * TAKE 1 TABLET BY MOUTH ONCE D* PREGABALIN 100 MG CAPSULE Take 1 capsule by mouth three* PROMETHAZINE 25 MG TABLET Take 1 tablet by mouth every * RIZATRIPTAN 5 MG TABLET Take 1-2 tablets by mouth as * TRAMADOL 50 MG TABLET Take 1-2 tablets by mouth nathalie* TRIAMCINOLONE ACETONIDE 0.1 %* Apply 1 application to affect* VALACYCLOVIR 500 MG TABLET TAKE 1 TABLET BY MOUTH DAILY CPAP Initiate CPAP @ 14 cm of wate* GLIMEPIRIDE 2 MG TABLET TAKE 2 TABLETS BY MOUTH TWICE* QUETIAPINE 300 MG TABLET Take 1 tablet by mouth daily * Patient taking differently: Take 300 mg by mouth daily at* Problem List As Of Date 11/14/2018 Noted Resolved ESOPHAGEAL REFLUX [K21.9] More... Unspecified asthma(493.90) [J45.909] 06/02/2017 More... 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 Unspecified vitamin D deficiency [E55.9] INVALID FOR*02/27/2013 GENITAL HERPES NEC [A60.00] INVALID FOR* URGE AND STRESS MIXED INCONTINENCE [N39.46] INVALID FOR* LACERATION -NOT COMPLICATED BREAST [S21.009A] INVALID FOR*02/27/2013 Diabetes (HCC) [E11.9] INVALID FOR* Enthesopathy of unspecified site [M77.9] INVALID FOR*02/27/2013 Adenopathy, Hilar [R59.0] INVALID FOR* Major depressive disorder, recurrent episode (H*INVALID FOR* Abnormal mammogram, unspecified [R92.8] INVALID FOR*06/02/2017 Wound, open, breast [S21.009A] INVALID FOR*02/27/2013 Benign neoplasm of skin of lower limb, includin*INVALID FOR*02/27/2013 Umbilical hernia without mention of obstruction*INVALID FOR*06/02/2017 Ventral hernia, unspecified, without mention of*INVALID FOR*06/02/2017 Anxiety [F41.9] INVALID FOR* Vitamin d deficiency [E55.9] INVALID FOR* Urge incontinence of urine [N39.41] INVALID FOR*06/02/2017 Pain of left lower leg [M79.662] INVALID FOR* Carpal tunnel syndrome of right wrist [G56.01] INVALID FOR*06/02/2017 Morbid obesity with BMI of 45.0-49.9, adult (HC* ABRAM (obstructive sleep apnea) [G47.33] INVALID FOR* More... Left carpal tunnel syndrome [G56.02] INVALID FOR*06/02/2017 Asthma with COPD with exacerbation (HCC) [J44.1*INVALID FOR* HTN (hypertension) [I10] INVALID FOR* Ganglion cyst of finger of right hand [M67.441] INVALID FOR* More... Prescriptions ordered this encounter Disp Refills Start End ORPHENADRINE CITRATE ER 100 MG TABLE* 60 t* 2 11/14/2018 Route: ORAL Sig: Take 1 tablet by mouth twice daily as needed for Muscle Spasm. Medications Discontinued During This Encounter orphenadrine ER (NORFLEX) 100 mg tab* 60 t* 2 07/03/2018 11/14/2018 Route: ORAL Sig: Take 1 tablet by mouth twice daily as needed for Muscle Spasm. Disc: Reason for discontinue is not on file. LOS history recorded Follow-up and Disposition History Recorded Encounter Status:Closed by PODLOGARHANSA CNP on 11/14/18 PROGRESS Observed: 11/14/2018 Status: COMPLETED Source: [place] 10:09 AM [facility] REPOSITORY O ID: [id number] Author: Hansa (Cherie) Podlogar Service: (none) Author Type: Nurse Practitioner Type: Progress Notes Filed: 11/14/2018 10:45 AM Note Text: 11/14/2018 Patient presents with: Recheck: one week f/up SUBJECTIVE: This is a 53 year old that is here today for Above Complaints. Seen on 11/06/2018 by Emile Ty APRN, for skin infection for left upper buttocks. Had previously been seen in on 11/02/2018 for this and placed on doxycyline. Since last office visit has continued to take antibiotic and has tolerated without side effects. Reports has had complete resolution of symptoms. Denies fevers, chills, swelling, increased pain, tenderness, redness, or drainage from area. PAST MEDICAL HISTORY Diagnosis Date - FIBROMYALGIA - Cellulitis and abscess of unspecified site 11/26 right leg - Depressive disorder, not elsewhere classified - Dysmetabolic syndrome X 08/09/2006 - Esophageal reflux Gastroesophageal reflux - Generalized anxiety disorder - Hx of cystoscopy 09/11/2017 - Localized osteoarthrosis not specified whether primary or secondary, other specified sites bilateral knees - Morbid obesity with BMI of 50.0-59.9, adult (HCC) - Other genital herpes 08/09/2006 - Type II or unspecified type diabetes mellitus without mention of complication, not stated as uncontrolled - Unspecified asthma(493.90) - Unspecified essential hypertension Essential hypertension - Whooping cough, unspecified organism 11/26 ALLERGIES Nia [Fexofenadine Hcl]; Ancef [Cefazolin Sodium]; Clindamycin; Duoderm [Other]; Elavil [Amitriptyline]; Macrobid [Nitrofurantoin Monohyd/M-Cryst]; Norvasc [Amlodipine]; Vancomycin MEDICATIONS Current Outpatient Prescriptions: albuterol HFA (VENTOLIN HFA) 90 mcg/actuation inhaler Inhale 2 Puffs as instructed every 4 hours as needed for Wheezing/Shortness of Breath. benzocaine-menthol (CEPACOL) 15-2.6 mg lozg lozenge Take 1 Lozenge by mouth every 3 hours as needed. (Patient not taking: Reported on 06/07/2018 ) benzonatate (TESSALON PERLE) 100 mg capsule Take 2 capsules by mouth three times daily as needed. blood sugar diagnostic (FREESTYLE LITE STRIPS) test strip Test blood sugar(s) 6 times daily and as needed for symptoms of low or high sugars. Dx: Type 2 DM - Unontrolled E11.65 Insulin: Yes buPROPion XL (WELLBUTRIN XL) 300 mg 24 hr tablet Take 300 mg by mouth once daily. 450mg daily busPIRone (BUSPAR) 5 mg tablet Take 15 mg by mouth twice daily. Dose needs clarified with patients pharmacy. collagenase (SANTYL) ointment Apply 1 application to affected area once daily. To leg ulcers till healed COMPOUNDED PRESCRIPTION Nebulizer for home use. Diagnosis: Asthma exacerbation CPAP Initiate CPAP @ 14 cm of water with humidification. EPR setting of 3. Mask (per patient preference) optional chin strap (if indicated) , filters, tubing, humidifier and lifetime supplies. diazePAM (VALIUM) 5 mg tablet Take 10 mg by mouth once daily as needed for Anxiety. dicyclomine (BENTYL) 20 mg tablet Take 1 tablet by mouth three times daily. divalproex ER (DEPAKOTE ER) 250 mg 24 hr tablet Take 1 tablet by mouth once daily for 7 days. Add to the 500 mg once daily dose for 1 week then increase to two 500 mg daily(RX sent) divalproex ER (DEPAKOTE ER) 500 mg 24 hr tablet Take 2 tablets by mouth once daily. doxycycline hyclate (VIBRAMYCIN) 100 mg capsule Take 1 capsule by mouth twice daily for 5 days. fluconazole (DIFLUCAN) 150 mg tablet 1 tablet today and repeat in 72 hours fluticasone (FLONASE) 50 mcg/actuation nasal spray Use 2 Sprays in each nostril once daily. gabapentin (NEURONTIN) 600 mg tablet Take 2 tablets by mouth three times daily for 168 days. glimepiride (AMARYL) 2 mg tablet TAKE 2 TABLETS BY MOUTH TWICE A DAY WITH MEALS DIRECTED hydrocortisone (ANUSOL-HC) 2.5 % rectal cream 1 application by RECTAL route twice daily. As directed insulin glargine (BASAGLAR KWIKPEN U-100 INSULIN) 100 unit/mL (3 mL) inpn Inject 30 Units subcutaneously every morning. (titrating up as directed) insulin glargine (BASAGLAR KWIKPEN U-100 INSULIN) 100 unit/mL (3 mL) inpn Inject 30 Units subcutaneously every morning. titrate up to 34 units as directed Insulin Thompsons, Disposable, (BD ULTRA-FINE EMILY PEN NEEDLE) 32 gauge x 5/32 ndle Use one needle for each dose. 1/day with Glargine. Lancets lancets Test blood sugar(s) 3 times daily. Dx: Type 2 DM - Uncontrolled E11.65 Insulin: No lidocaine (LMX) 4 % cream Apply thin layer to affected area three times a day as needed for pain lisinopril (ZESTRIL, PRINIVIL) 10 mg tablet Take 1 tablet by mouth twice daily. As directed metFORMIN (GLUCOPHAGE) 500 mg tablet Take 500 mg by mouth twice daily. mometasone-formoterol (DULERA) 100-5 mcg/actuation inhaler Inhale 2 Puffs as instructed twice daily. mupirocin (BACTROBAN) 2 % ointment APPLY TO AFFECTED AREA ONCE DAILY nadolol (CORGARD) 80 mg tablet Take 2 tablets by mouth once daily. omeprazole (PRILOSEC) 20 mg capsule TAKE 1 CAPSULE BY MOUTH DAILY Omeprazole Magnesium (PRILOSEC OTC) 20 mg tablet Take 1 tablet by mouth daily before breakfast. 1/2 hr before meal. (Patient not taking: Reported on 07/03/2018 ) ondansetron orally disintegrating (ZOFRAN ODT) 4 mg disintegrating tablet Take 1 tablet by mouth every 8 hours as needed. orphenadrine ER (NORFLEX) 100 mg tablet Take 1 tablet by mouth twice daily as needed for Muscle Spasm. oxybutynin ER (DITROPAN XL) 15 mg 24 hr Extended Rel Tab TAKE 1 TABLET BY MOUTH ONCE DAILY. pregabalin (LYRICA) 100 mg capsule Take 1 capsule by mouth three times daily for 90 days. promethazine (PHENERGAN) 25 mg tablet Take 1 tablet by mouth every 6 hours as needed. QUEtiapine (SEROQUEL) 300 mg tablet Take 1 tablet by mouth daily at bedtime. Also takes [address] Patterson. (Patient taking differently: Take 300 mg by mouth daily at bedtime. ) rizatriptan (MAXALT) 5 mg tablet Take 1-2 tablets by mouth as needed. May repeat in 2 hours if needed traMADol (ULTRAM) 50 mg tablet Take 1-2 tablets by mouth every 6 hours as needed for up to 90 days. triamcinolone acetonide (KENALOG) 0.1 % cream Apply 1 application to affected area twice daily. For itchy lesions for 2 weeks (torso or extremities) as directed valACYclovir (VALTREX) 500 mg tablet TAKE 1 TABLET BY MOUTH DAILY No current facility-administered medications for this visit. Medications and allergies reviewed by this provider. 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 OBJECTIVE: BP 132/76 (BP Site: Left Arm, BP Position: Sitting, BP Cuff Size: Large Adult) Pulse 76 Resp 18 Wt (!) 150.6 kg (332 lb) BMI 55.25 kg/m? . Vital signs reviewed by this provider. APPEARANCE Well appearing, alert, in no acute distress, well-hydrated, well nourished. SKIN Skin color, texture, turgor normal, no suspicious rashes or lesions. No tenderness, swelling, warmth, or open area to left buttock ASSESSMENT/PLAN: 1. Skin infection - ICD9: 686.9, ICD10: L08.9 (primary diagnosis) - resolved - is to finish antibiotic - Follow-up as scheduled,sooner if needed 2. Screening for breast cancer - ICD9: V76.10, ICD10: Z12.31 - JG SCREENING Hansa Gambino APRN.CATH LAB RADIOLOGICAL TECHNOLOGIST Prescription instructions reviewed with patient as applicable. Patient advised if symptoms do not improve or if symptoms worsen sooner, to contact their primary care physician. Potential red flag symptoms discussed with the patient. Reviewed appropriate action plan to take if red flag symptoms occur. Patient agreeable to treatment plan. PROGRESS Observed: 11/06/2018 Status: COMPLETED Source: [place] 10:43 AM [facility] REPOSITORY HNO ID: [id number] Author: Emile (Fruit Canner) Karson Service: (none) Author Type: Nurse Specialist Type: Progress Notes Filed: 11/06/2018 11:11 AM Note Text: This note was created using NetSanityriter. Subjective Edel Lang is a 53 year old woman presents for follow- up of Review of Systems Constitutional: Negative for activity change, appetite change, chills, diaphoresis and fever. Skin: Positive for wound (tender palpable swelling left upper buttock necxt to jabari cleft ~1x2). Negative for color change, pallor and rash. Psychiatric/Behavioral: Negative for agitation. The patient is not nervous/anxious. Objective BP 120/82 (BP Site: Left Arm, BP Position: Sitting, BP Cuff Size: Large Adult) Pulse 72 Temp 36.8 ?C (98.2 ?F) Resp 16 Wt (!) 152.4 kg (336 lb) BMI 55.91 kg/m? Physical Exam Constitutional: She appears well-developed. HENT: Head: Normocephalic. Skin: Skin is warm, dry and intact. Rash noted. No abrasion, no bruising, no ecchymosis, no laceration and no petechiae noted. Rash is nodular. Rash is not macular, not pustular and not urticarial. No erythema. Nursing note and vitals reviewed. HISTORIES FAMILY HISTORY Problem Relation Age of Onset - Diabetes Mother - Hypertension Mother - Psychiatry Mother severe depression, bipolar - Asthma Mother - Arthritis Mother rheumatoid arthritis - other (fibromyalgia) Mother - Hypertension Father - Stroke Father - other (traumatic brain injury) Father - Alzheimer's Disease Maternal Grandmother - Hypertension Maternal Grandfather - Stroke Maternal Grandfather - other (parkinsons) Maternal Grandfather - Stroke Paternal Grandmother 8 - Hypertension Paternal Grandmother - Seizures Son - other (schizo - affective) Son - other (autism) Son - other (partial agenesis of corpus collosm) Son - other (depression) Son PAST MEDICAL HISTORY Diagnosis Date - FIBROMYALGIA - Cellulitis and abscess of unspecified site 11/26 right leg - Depressive disorder, not elsewhere classified - Dysmetabolic syndrome X 08/09/2006 - Esophageal reflux Gastroesophageal reflux - Generalized anxiety disorder - Hx of cystoscopy 09/11/2017 - Localized osteoarthrosis not specified whether primary or secondary, other specified sites bilateral knees - Morbid obesity with BMI of 50.0-59.9, adult (HCC) - Other genital herpes 08/09/2006 - Type II or unspecified type diabetes mellitus without mention of complication, not stated as uncontrolled - Unspecified asthma(493.90) - Unspecified essential hypertension Essential hypertension - Whooping cough, unspecified organism 11/26 PAST SURGICAL HISTORY Procedure Laterality Date - DELIVERY ONLY 1993 , low cervical - COLONOSCOP W/ OR W/O [facility] SPEC 03/24/2005 Colonoscopy - KNEE SCOPE,DIAGNOSTIC 2002 Arthroscopy, knee-right - KNEE SCOPE,DIAGNOSTIC 2003 Arthroscopy, knee-left - PAST SURGICAL HISTORY OF 1997 uterus out as well as cervix - PAST SURGICAL HISTORY OF 03/29/11 Excision of Rt lower leg lesion - PAST SURGICAL HISTORY OF 07/2014 cardiac cath - REMOVAL OF OVARY(S) 1999 Oophorectom bilateral - REMOVAL OF TONSILS,<12 Y/O 1968 Tonsillectomy - REPAIR INCISIONAL HERNIA,JUANA 05/11/11 with large ventralex mesh - REVISE MEDIAN N/CARPAL TUNNEL SURG 05-16-14 Carpal tunnel decomp right and excision ganglion righ thumb - REVISE MEDIAN N/CARPAL TUNNEL SURG Left 09/09/2015 Carpal tunnel decomp left - SKIN SUB GRAFT LEG 2012 left LE Social History Marital status: Spouse name: Years of education: Number of children: 1 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 No redness. - Elavil [Amitriptyli* hallucinations - Macrobid [Nitrofura* Hives - Norvasc [Amlodipine] Swelling - Vancomycin Swelling legs swell and turn red Current Outpatient Prescriptions: albuterol HFA (VENTOLIN HFA) 90 mcg/actuation inhaler Inhale 2 Puffs as instructed every 4 hours as needed for Wheezing/Shortness of Breath. benzonatate (TESSALON PERLE) 100 mg capsule Take 2 capsules by mouth three times daily as needed. blood sugar diagnostic (FREESTYLE LITE STRIPS) test strip Test blood sugar(s) 6 times daily and as needed for symptoms of low or high sugars. Dx: Type 2 DM - Unontrolled E11.65 Insulin: Yes buPROPion XL (WELLBUTRIN XL) 300 mg 24 hr tablet Take 300 mg by mouth once daily. 450mg daily busPIRone (BUSPAR) 5 mg tablet Take 15 mg by mouth twice daily. Dose needs clarified with patients pharmacy. collagenase (SANTYL) ointment Apply 1 application to affected area once daily. To leg ulcers till healed COMPOUNDED PRESCRIPTION Nebulizer for home use. Diagnosis: Asthma exacerbation CPAP Initiate CPAP @ 14 cm of water with humidification. EPR setting of 3. Mask (per patient preference) optional chin strap (if indicated) , filters, tubing, humidifier and lifetime supplies. diazePAM (VALIUM) 5 mg tablet Take 10 mg by mouth once daily as needed for Anxiety. dicyclomine (BENTYL) 20 mg tablet Take 1 tablet by mouth three times daily. divalproex ER (DEPAKOTE ER) 250 mg 24 hr tablet Take 1 tablet by mouth once daily for 7 days. Add to the 500 mg once daily dose for 1 week then increase to two 500 mg daily(RX sent) divalproex ER (DEPAKOTE ER) 500 mg 24 hr tablet Take 2 tablets by mouth once daily. [START ON 11/12/2018] doxycycline hyclate (VIBRAMYCIN) 100 mg capsule Take 1 capsule by mouth twice daily for 5 days. fluconazole (DIFLUCAN) 150 mg tablet 1 tablet today and repeat in 72 hours fluticasone (FLONASE) 50 mcg/actuation nasal spray Use 2 Sprays in each nostril once daily. gabapentin (NEURONTIN) 600 mg tablet Take 2 tablets by mouth three times daily for 168 days. glimepiride (AMARYL) 2 mg tablet TAKE 2 TABLETS BY MOUTH TWICE A DAY WITH MEALS DIRECTED hydrocortisone (ANUSOL-HC) 2.5 % rectal cream 1 application by RECTAL route twice daily. As directed insulin glargine (BASAGLAR KWIKPEN U-100 INSULIN) 100 unit/mL (3 mL) inpn Inject 30 Units subcutaneously every morning. (titrating up as directed) Insulin Thompsons, Disposable, (BD ULTRA-FINE EMILY PEN NEEDLE) 32 gauge x ndle Use one needle for each dose. 1/day with Glargine. Lancets lancets Test blood sugar(s) 3 times daily. Dx: Type 2 DM - Uncontrolled E11.65 Insulin: No lidocaine (LMX) 4 % cream Apply thin layer to affected area three times a day as needed for pain lisinopril (ZESTRIL, PRINIVIL) 10 mg tablet Take 1 tablet by mouth twice daily. As directed metFORMIN (GLUCOPHAGE) 500 mg tablet Take 500 mg by mouth twice daily. mometasone-formoterol (DULERA) 100-5 mcg/actuation inhaler Inhale 2 Puffs as instructed twice daily. mupirocin (BACTROBAN) 2 % ointment APPLY TO AFFECTED AREA ONCE DAILY nadolol (CORGARD) 80 mg tablet Take 2 tablets by mouth once daily. omeprazole (PRILOSEC) 20 mg capsule TAKE 1 CAPSULE BY MOUTH DAILY ondansetron orally disintegrating (ZOFRAN ODT) 4 mg disintegrating tablet Take 1 tablet by mouth every 8 hours as needed. orphenadrine ER (NORFLEX) 100 mg tablet Take 1 tablet by mouth twice daily as needed for Muscle Spasm. oxybutynin ER (DITROPAN XL) 15 mg 24 hr Extended Rel Tab TAKE 1 TABLET BY MOUTH ONCE DAILY. oxyCODONE-acetaminophen (PERCOCET) 5-325 mg tablet Take 1 tablet by mouth three times daily as needed for up to 7 days. Recurrent leg ulcer pregabalin (LYRICA) 100 mg capsule Take 1 capsule by mouth three times daily for 90 days. promethazine (PHENERGAN) 25 mg tablet Take 1 tablet by mouth every 6 hours as needed. QUEtiapine (SEROQUEL) 300 mg tablet Take 1 tablet by mouth daily at bedtime. Also takes [address] Patterson. (Patient taking differently: Take 300 mg by mouth daily at bedtime. ) rizatriptan (MAXALT) 5 mg tablet Take 1-2 tablets by mouth as needed. May repeat in 2 hours if needed traMADol (ULTRAM) 50 mg tablet Take 1-2 tablets by mouth every 6 hours as needed for up to 90 days. triamcinolone acetonide (KENALOG) 0.1 % cream Apply 1 application to affected area twice daily. For itchy lesions for 2 weeks (torso or extremities) as directed valACYclovir (VALTREX) 500 mg tablet TAKE 1 TABLET BY MOUTH DAILY benzocaine-menthol (CEPACOL) 15-2.6 mg lozg lozenge Take 1 Lozenge by mouth every 3 hours as needed. (Patient not taking: Reported on 06/07/2018 ) Omeprazole Magnesium (PRILOSEC OTC) 20 mg tablet Take 1 tablet by mouth daily before breakfast. 1/2 hr before meal. (Patient not taking: Reported on 07/03/2018 ) No current facility-administered medications for this visit. Assessment and Plan 1. Skin infection - ICD9: 686.9, ICD10: L08.9 Does have tenderness and swelling upper left buttock, reports feeling a bit improved since starting doxycycline. - DOXYCYCLINE HYCLATE 100 MG CAPSULE Advised: Avoid sitting on the painful area as much as possible Lie on your side in bed as much as possible Place a bed pillow in any chair you or sitting on for now to decrease pressure on the area Continue with antibiotic unchanged for now If feeling improved but not yet back to baseline, take additional 5 days of doxycycline Schedule follow-up visit next week for recheck Call the nurses or return for a clinic visit if increased redness pain or swelling in the area or begin running a fever Emile Ty APRN.WINDING OPERATOR November 06, 2018 CNOV Observed: 11/06/2018 Status: COMPLETED Source: [place] 10:20 AM [facility] REPOSITORY Office Visit (INTMWS) EDEL LANG ([id number]) 1965 F Date Time Provider Department 11/06/18 10:20 AM EMILE TY (CARLOS) INTMWS During your visit today, we recorded the following information about you: Temperature Pulse Respiration Blood pressure 98.2 degrees 72/minute 16/minute 120/82 Weight 152.4 kg Emile Ty APRN.CNS 11/06/2018 11:11 AM Signed This note was created using NetSanityriter. Subjective Edel Lang is a 53 year old woman presents for follow- up of Review of Systems Constitutional: Negative for activity change, appetite change, chills, diaphoresis and fever. Skin: Positive for wound (tender palpable swelling left upper buttock necxt to jabari cleft ~1x2). Negative for color change, pallor and rash. Psychiatric/Behavioral: Negative for agitation. The patient is not nervous/anxious. Objective BP 120/82 (BP Site: Left Arm, BP Position: Sitting, BP Cuff Size: Large Adult) Pulse 72 Temp 36.8 ?C (98.2 ?F) Resp 16 Wt (!) 152.4 kg (336 lb) BMI 55.91 kg/m? Physical Exam Constitutional: She appears well-developed. HENT: Head: Normocephalic. Skin: Skin is warm, dry and intact. Rash noted. No abrasion, no bruising, no ecchymosis, no laceration and no petechiae noted. Rash is nodular. Rash is not macular, not pustular and not urticarial. No erythema. Nursing note and vitals reviewed. HISTORIES FAMILY HISTORY Problem Relation Age of Onset - Diabetes Mother - Hypertension Mother - Psychiatry Mother severe depression, bipolar - Asthma Mother - Arthritis Mother rheumatoid arthritis - other (fibromyalgia) Mother - Hypertension Father - Stroke Father - other (traumatic brain injury) Father - Alzheimer's Disease Maternal Grandmother - Hypertension Maternal Grandfather - Stroke Maternal Grandfather - other (parkinsons) Maternal Grandfather - Stroke Paternal Grandmother 8 - Hypertension Paternal Grandmother - Seizures Son - other (schizo - affective) Son - other (autism) Son - other (partial agenesis of corpus collosm) Son - other (depression) Son PAST MEDICAL HISTORY Diagnosis Date - FIBROMYALGIA - Cellulitis and abscess of unspecified site 11/26 right leg - Depressive disorder, not elsewhere classified - Dysmetabolic syndrome X 08/09/2006 - Esophageal reflux Gastroesophageal reflux - Generalized anxiety disorder - Hx of cystoscopy 09/11/2017 - Localized osteoarthrosis not specified whether primary or secondary, other specified sites bilateral knees - Morbid obesity with BMI of 50.0-59.9, adult (HCC) - Other genital herpes 08/09/2006 - Type II or unspecified type diabetes mellitus without mention of complication, not stated as uncontrolled - Unspecified asthma(493.90) - Unspecified essential hypertension Essential hypertension - Whooping cough, unspecified organism 11/26 PAST SURGICAL HISTORY Procedure Laterality Date - DELIVERY ONLY 1993 , low cervical - COLONOSCOP W/ OR W/O [facility] SPEC 03/24/2005 Colonoscopy - KNEE SCOPE,DIAGNOSTIC 2002 Arthroscopy, knee-right - KNEE SCOPE,DIAGNOSTIC 2003 Arthroscopy, knee-left - PAST SURGICAL HISTORY OF 1997 uterus out as well as cervix - PAST SURGICAL HISTORY OF 03/29/11 Excision of Rt lower leg lesion - PAST SURGICAL HISTORY OF 07/2014 cardiac cath - REMOVAL OF OVARY(S) 1999 Oophorectom bilateral - REMOVAL OF TONSILS,<12 Y/O 1967 Tonsillectomy - REPAIR INCISIONAL HERNIA,JUANA 05/11/11 with large ventralex mesh - REVISE MEDIAN N/CARPAL TUNNEL SURG 05-16- Carpal tunnel decomp right and excision ganglion righ thumb - REVISE MEDIAN N/CARPAL TUNNEL SURG Left 09/09/2015 Carpal tunnel decomp left - SKIN SUB GRAFT LEG 2012 left LE Social History Marital status: Spouse name: Years of education: Number of children: 1 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 No redness. - Elavil [Amitriptyli* hallucinations - Macrobid [Nitrofura* Hives - Norvasc [Amlodipine] Swelling - Vancomycin Swelling legs swell and turn red Current Outpatient Prescriptions: albuterol HFA (VENTOLIN HFA) 90 mcg/actuation inhaler Inhale 2 Puffs as instructed every 4 hours as needed for Wheezing/Shortness of Breath. benzonatate (TESSALON PERLE) 100 mg capsule Take 2 capsules by mouth three times daily as needed. blood sugar diagnostic (FREESTYLE LITE STRIPS) test strip Test blood sugar(s) 6 times daily and as needed for symptoms of low or high sugars. Dx: Type 2 DM - Unontrolled E11.65 Insulin: Yes buPROPion XL (WELLBUTRIN XL) 300 mg 24 hr tablet Take 300 mg by mouth once daily. 450mg daily busPIRone (BUSPAR) 5 mg tablet Take 15 mg by mouth twice daily. Dose needs clarified with patients pharmacy. collagenase (SANTYL) ointment Apply 1 application to affected area once daily. To leg ulcers till healed COMPOUNDED PRESCRIPTION Nebulizer for home use. Diagnosis: Asthma exacerbation CPAP Initiate CPAP @ 14 cm of water with humidification. EPR setting of 3. Mask (per patient preference) optional chin strap (if indicated) , filters, tubing, humidifier and lifetime supplies. diazePAM (VALIUM) 5 mg tablet Take 10 mg by mouth once daily as needed for Anxiety. dicyclomine (BENTYL) 20 mg tablet Take 1 tablet by mouth three times daily. divalproex ER (DEPAKOTE ER) 250 mg 24 hr tablet Take 1 tablet by mouth once daily for 7 days. Add to the 500 mg once daily dose for 1 week then increase to two 500 mg daily(RX sent) divalproex ER (DEPAKOTE ER) 500 mg 24 hr tablet Take 2 tablets by mouth once daily. [START ON 11/12/2018] doxycycline hyclate (VIBRAMYCIN) 100 mg capsule Take 1 capsule by mouth twice daily for 5 days. fluconazole (DIFLUCAN) 150 mg tablet 1 tablet today and repeat in 72 hours fluticasone (FLONASE) 50 mcg/actuation nasal spray Use 2 Sprays in each nostril once daily. gabapentin (NEURONTIN) 600 mg tablet Take 2 tablets by mouth three times daily for 168 days. glimepiride (AMARYL) 2 mg tablet TAKE 2 TABLETS BY MOUTH TWICE A DAY WITH MEALS DIRECTED hydrocortisone (ANUSOL-HC) 2.5 % rectal cream 1 application by RECTAL route twice daily. As directed insulin glargine (BASAGLAR KWIKPEN U-100 INSULIN) 100 unit/mL (3 mL) inpn Inject 30 Units subcutaneously every morning. (titrating up as directed) Insulin Thompsons, Disposable, (BD ULTRA-FINE EMILY PEN NEEDLE) 32 gauge x 5/32 ndle Use one needle for each dose. 1/day with Glargine. Lancets lancets Test blood sugar(s) 3 times daily. Dx: Type 2 DM - Uncontrolled E11.65 Insulin: No lidocaine (LMX) 4 % cream Apply thin layer to affected area three times a day as needed for pain lisinopril (ZESTRIL, PRINIVIL) 10 mg tablet Take 1 tablet by mouth twice daily. As directed metFORMIN (GLUCOPHAGE) 500 mg tablet Take 500 mg by mouth twice daily. mometasone-formoterol (DULERA) 100-5 mcg/actuation inhaler Inhale 2 Puffs as instructed twice daily. mupirocin (BACTROBAN) 2 % ointment APPLY TO AFFECTED AREA ONCE DAILY nadolol (CORGARD) 80 mg tablet Take 2 tablets by mouth once daily. omeprazole (PRILOSEC) 20 mg capsule TAKE 1 CAPSULE BY MOUTH DAILY ondansetron orally disintegrating (ZOFRAN ODT) 4 mg disintegrating tablet Take 1 tablet by mouth every 8 hours as needed. orphenadrine ER (NORFLEX) 100 mg tablet Take 1 tablet by mouth twice daily as needed for Muscle Spasm. oxybutynin ER (DITROPAN XL) 15 mg 24 hr Extended Rel Tab TAKE 1 TABLET BY MOUTH ONCE DAILY. oxyCODONE-acetaminophen (PERCOCET) 5-325 mg tablet Take 1 tablet by mouth three times daily as needed for up to 7 days. Recurrent leg ulcer pregabalin (LYRICA) 100 mg capsule Take 1 capsule by mouth three times daily for 90 days. promethazine (PHENERGAN) 25 mg tablet Take 1 tablet by mouth every 6 hours as needed. QUEtiapine (SEROQUEL) 300 mg tablet Take 1 tablet by mouth daily at bedtime. Also takes [address] Patterson. (Patient taking differently: Take 300 mg by mouth daily at bedtime. ) rizatriptan (MAXALT) 5 mg tablet Take 1-2 tablets by mouth as needed. May repeat in 2 hours if needed traMADol (ULTRAM) 50 mg tablet Take 1-2 tablets by mouth every 6 hours as needed for up to 90 days. triamcinolone acetonide (KENALOG) 0.1 % cream Apply 1 application to affected area twice daily. For itchy lesions for 2 weeks (torso or extremities) as directed valACYclovir (VALTREX) 500 mg tablet TAKE 1 TABLET BY MOUTH DAILY benzocaine-menthol (CEPACOL) 15-2.6 mg lozg lozenge Take 1 Lozenge by mouth every 3 hours as needed. (Patient not taking: Reported on 06/07/2018 ) Omeprazole Magnesium (PRILOSEC OTC) 20 mg tablet Take 1 tablet by mouth daily before breakfast. 1/2 hr before meal. (Patient not taking: Reported on 07/03/2018 ) No current facility-administered medications for this visit. Assessment and Plan 1. Skin infection - ICD9: 686.9, ICD10: L08.9 Does have tenderness and swelling upper left buttock, reports feeling a bit improved since starting doxycycline. - DOXYCYCLINE HYCLATE 100 MG CAPSULE Advised: Avoid sitting on the painful area as much as possible Lie on your side in bed as much as possible Place a bed pillow in any chair you or sitting on for now to decrease pressure on the area Continue with antibiotic unchanged for now If feeling improved but not yet back to baseline, take additional 5 days of doxycycline Schedule follow-up visit next week for recheck Call the nurses or return for a clinic visit if increased redness pain or swelling in the area or begin running a fever Emile Ty APRN.WINDING OPERATOR November 06, 2018 Emile Ty APRN.CNS 11/06/2018 10:57 AM Signed Avoid sitting on the painful area as much as possible Lie on your side in bed as much as possible Place a bed pillow in any chair you or sitting on for now to decrease pressure on the area Continue with antibiotic unchanged for now If feeling improved but not yet back to baseline, take additional 5 days of doxycycline Schedule follow-up visit next week for recheck Call the nurses or return for a clinic visit if increased redness pain or swelling in the area or begin running a fever Referring Provider: SELF [[id number]] Allergies As of Date: 11/06/2018 Noted Allergy Reaction NIA (FEXOFENADINE HCL) 01/25/2006 12 - Shortness of Breath ANCEF (CEFAZOLIN SODIUM) 01/25/2006 4 - Hives CLINDAMYCIN 01/05/2007 6 - Diarrhea duoderm [Other] 05/21/2007 Comments: severe burning pain at point of contact. No redness. ELAVIL (AMITRIPTYLINE) 04/27/2007 Comments: hallucinations MACROBID (NITROFURANTOIN MONOHYD/*05/15/2007 4 - Hives NORVASC (AMLODIPINE) 12/11/2008 7 - Swelling VANCOMYCIN 08/01/2018 7 - Swelling Comments: legs swell and turn red Date Reviewed: 11/06/2018 Reviewed by: Edel Montejo LPN - Fully Assessed Reason for Visit: urgent care f/u [Other] Cmt: skin infection L side coccyx Visit Diagnosis:Skin infection [L08.9] Order(s):[START ON 11/12/2018] doxycycline hyclate (VIBRAMYCIN) 100 mg capsuleTake 1 capsule by mouth twice daily for 5 days.Disp: 10 capsuleRfl: 0 Prescriptions as of 11/06/2018 Sig: ALBUTEROL SULFATE HFA 90 MCG/* Inhale 2 Puffs as instructed * BENZONATATE 100 MG CAPSULE Take 2 capsules by mouth thre* BLOOD SUGAR DIAGNOSTIC STRIPS Test blood sugar(s) 6 times d* BUPROPION XL 300 MG 24 HR TAB Take 300 mg by mouth once josé* BUSPIRONE 5 MG TABLET Take 15 mg by mouth twice josé* COLLAGENASE CLOSTRIDIUM HISTO* Apply 1 application to affect* COMPOUNDED PRESCRIPTION Nebulizer for home use. Diagn* CPAP Initiate CPAP @ 14 cm of wate* DIAZEPAM 5 MG TABLET Take 10 mg by mouth once kala* DICYCLOMINE 20 MG TABLET Take 1 tablet by mouth three * DIVALPROEX ER 250 MG TABLET,E* Take 1 tablet by mouth once d* DIVALPROEX ER 500 MG TABLET,E* Take 2 tablets by mouth once * DOXYCYCLINE HYCLATE 100 MG CA* Take 1 capsule by mouth twice* FLUCONAZOLE 150 MG TABLET 1 tablet today and repeat in * FLUTICASONE 50 MCG/ACTUATION * Use 2 Sprays in each nostril * GABAPENTIN 600 MG TABLET Take 2 tablets by mouth three* GLIMEPIRIDE 2 MG TABLET TAKE 2 TABLETS BY MOUTH TWICE* HYDROCORTISONE 2.5 % TOPICAL * 1 application by RECTAL route* INSULIN GLARGINE (U-100) 100 * Inject 30 Units subcutaneousl* PEN NEEDLE, DIABETIC 32 GAUGE* Use one needle for each dose.* LANCETS Test blood sugar(s) 3 times d* LIDOCAINE 4 % TOPICAL CREAM Apply thin layer to affected * LISINOPRIL 10 MG TABLET Take 1 tablet by mouth twice * METFORMIN 500 MG TABLET Take 500 mg by mouth twice da* MOMETASONE-FORMOTEROL HFA 100* Inhale 2 Puffs as instructed * MUPIROCIN 2 % TOPICAL OINTMENT APPLY TO AFFECTED AREA ONCE D* NADOLOL 80 MG TABLET Take 2 tablets by mouth once * OMEPRAZOLE 20 MG CAPSULE,MELINDA* TAKE 1 CAPSULE BY MOUTH DAILY ONDANSETRON 4 MG DISINTEGRATI* Take 1 tablet by mouth every * ORPHENADRINE CITRATE ER 100 M* Take 1 tablet by mouth twice * OXYBUTYNIN CHLORIDE ER 15 MG * TAKE 1 TABLET BY MOUTH ONCE D* OXYCODONE-ACETAMINOPHEN 5 MG-* Take 1 tablet by mouth three * PREGABALIN 100 MG CAPSULE Take 1 capsule by mouth three* PROMETHAZINE 25 MG TABLET Take 1 tablet by mouth every * QUETIAPINE 300 MG TABLET Take 1 tablet by mouth daily * Patient taking differently: Take 300 mg by mouth daily at* RIZATRIPTAN 5 MG TABLET Take 1-2 tablets by mouth as * TRAMADOL 50 MG TABLET Take 1-2 tablets by mouth nathalie* TRIAMCINOLONE ACETONIDE 0.1 %* Apply 1 application to affect* VALACYCLOVIR 500 MG TABLET TAKE 1 TABLET BY MOUTH DAILY BENZOCAINE-MENTHOL 15 MG-2.6 * Take 1 Lozenge by mouth every* Patient not taking: Reported on 06/07/2018 OMEPRAZOLE MAGNESIUM 20 MG TA* Take 1 tablet by mouth daily * Patient not taking: Reported on 07/03/2018 Problem List As Of Date 11/06/2018 Noted Resolved ESOPHAGEAL REFLUX [K21.9] More... Unspecified asthma(493.90) [J45.909] 06/02/2017 More... 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 Unspecified vitamin D deficiency [E55.9] INVALID FOR*02/27/2013 GENITAL HERPES NEC [A60.00] INVALID FOR* URGE AND STRESS MIXED INCONTINENCE [N39.46] INVALID FOR* LACERATION -NOT COMPLICATED BREAST [S21.009A] INVALID FOR*02/27/2013 Diabetes (HCC) [E11.9] INVALID FOR* Enthesopathy of unspecified site [M77.9] INVALID FOR*02/27/2013 Adenopathy, Hilar [R59.0] INVALID FOR* Major depressive disorder, recurrent episode (H*INVALID FOR* Abnormal mammogram, unspecified [R92.8] INVALID FOR*06/02/2017 Wound, open, breast [S21.009A] INVALID FOR*02/27/2013 Benign neoplasm of skin of lower limb, includin*INVALID FOR*02/27/2013 Umbilical hernia without mention of obstruction*INVALID FOR*06/02/2017 Ventral hernia, unspecified, without mention of*INVALID FOR*06/02/2017 Anxiety [F41.9] INVALID FOR* Vitamin d deficiency [E55.9] INVALID FOR* Urge incontinence of urine [N39.41] INVALID FOR*06/02/2017 Pain of left lower leg [M79.662] INVALID FOR* Carpal tunnel syndrome of right wrist [G56.01] INVALID FOR*06/02/2017 Morbid obesity with BMI of 45.0-49.9, adult (HC* ABRAM (obstructive sleep apnea) [G47.33] INVALID FOR* More... Left carpal tunnel syndrome [G56.02] INVALID FOR*06/02/2017 Asthma with COPD with exacerbation (HCC) [J44.1*INVALID FOR* HTN (hypertension) [I10] INVALID FOR* Ganglion cyst of finger of right hand [M67.441] INVALID FOR* More... Other instructions from your clinician: Avoid sitting on the painful area as much as possible Lie on your side in bed as much as possible Place a bed pillow in any chair you or sitting on for now to decrease pressure on the area Continue with antibiotic unchanged for now If feeling improved but not yet back to baseline, take additional 5 days of doxycycline Schedule follow-up visit next week for recheck Call the nurses or return for a clinic visit if increased redness pain or swelling in the area or begin running a fever Prescriptions ordered this encounter Disp Refills Start End DOXYCYCLINE HYCLATE 100 MG CAPSULE 10 c* 0 11/12/2018 11/17/2018 Class: Print RX Route: ORAL Sig: Take 1 capsule by mouth twice daily for 5 days. Medications Discontinued During This Encounter doxycycline hyclate (VIBRAMYCIN) 100* 20 c* 0 11/02/2018 11/06/2018 Route: ORAL Sig: Take 1 capsule by mouth twice daily for 10 days. Disc: Reason for discontinue is not on file. Encounter Status:Closed by EMILE SANTOS on 11/06/18 PROGRESS Observed: 11/05/2018 Status: COMPLETED Source: [place] 11:24 PM [facility] [place] REPOSITORY O ID: [id number] Author: Terrie Lopez Service: (none) Author Type: Physician Type: Progress Notes Filed: 11/05/2018 11:36 PM Note Text: Patient presents with: Weight Loss SMA SUBJECTIVE: Edel Lang is a 53 year old year old lady here today for Weight Loss SMA--Jaqueline Cid. During SMA discussed issues with weight. SMART goals reviewed. See Assessment and Plan. One on one after SMA discussed: Last Monday was in ER--leg infection noted. Clindamycin. Still with bad pain D dimer elevated--US neg for DVT. Seeing [facility] since sugars were 600. Humalog 1 unit for every 50 Basaglar 22 units with increase every 3 days by 1 unit if over 200 in AM. Metformin 1 tablet BID. Has seen some sugars in 120's. PAST MEDICAL HISTORY Diagnosis Date - FIBROMYALGIA - Cellulitis and abscess of unspecified site 11/26 right leg - Depressive disorder, not elsewhere classified - Dysmetabolic syndrome X 08/09/2006 - Esophageal reflux Gastroesophageal reflux - Generalized anxiety disorder - Hx of cystoscopy 09/11/2017 - Localized osteoarthrosis not specified whether primary or secondary, other specified sites bilateral knees - Morbid obesity with BMI of 50.0-59.9, adult (HCC) - Other genital herpes 08/09/2006 - Type II or unspecified type diabetes mellitus without mention of complication, not stated as uncontrolled - Unspecified asthma(493.90) - Unspecified essential hypertension Essential hypertension - Whooping cough, unspecified organism 11/26 Current Outpatient Prescriptions: metFORMIN (GLUCOPHAGE) 500 mg tablet Take 500 mg by mouth twice daily. albuterol HFA (VENTOLIN HFA) 90 mcg/actuation inhaler Inhale 2 Puffs as instructed every 4 hours as needed for Wheezing/Shortness of Breath. benzocaine-menthol (CEPACOL) 15-2.6 mg lozg lozenge Take 1 Lozenge by mouth every 3 hours as needed. (Patient not taking: Reported on 06/07/2018 ) benzonatate (TESSALON PERLE) 100 mg capsule Take 2 capsules by mouth three times daily as needed. blood sugar diagnostic (FREESTYLE LITE STRIPS) test strip Test blood sugar(s) 6 times daily and as needed for symptoms of low or high sugars. Dx: Type 2 DM - Unontrolled E11.65 Insulin: Yes buPROPion XL (WELLBUTRIN XL) 300 mg 24 hr tablet Take 300 mg by mouth once daily. 450mg daily busPIRone (BUSPAR) 5 mg tablet Take 15 mg by mouth twice daily. Dose needs clarified with patients pharmacy. collagenase (SANTYL) ointment Apply 1 application to affected area once daily. To leg ulcers till healed COMPOUNDED PRESCRIPTION Nebulizer for home use. Diagnosis: Asthma exacerbation CPAP Initiate CPAP @ 14 cm of water with humidification. EPR setting of 3. Mask (per patient preference) optional chin strap (if indicated) , filters, tubing, humidifier and lifetime supplies. diazePAM (VALIUM) 5 mg tablet Take 10 mg by mouth once daily as needed for Anxiety. dicyclomine (BENTYL) 20 mg tablet Take 1 tablet by mouth three times daily. divalproex ER (DEPAKOTE ER) 250 mg 24 hr tablet Take 1 tablet by mouth once daily for 7 days. Add to the 500 mg once daily dose for 1 week then increase to two 500 mg daily(RX sent) divalproex ER (DEPAKOTE ER) 500 mg 24 hr tablet Take 2 tablets by mouth once daily. doxycycline hyclate (VIBRAMYCIN) 100 mg capsule Take 1 capsule by mouth twice daily for 10 days. fluconazole (DIFLUCAN) 150 mg tablet 1 tablet today and repeat in 72 hours fluticasone (FLONASE) 50 mcg/actuation nasal spray Use 2 Sprays in each nostril once daily. gabapentin (NEURONTIN) 600 mg tablet Take 2 tablets by mouth three times daily for 168 days. glimepiride (AMARYL) 2 mg tablet TAKE 2 TABLETS BY MOUTH TWICE A DAY WITH MEALS DIRECTED hydrocortisone (ANUSOL-HC) 2.5 % rectal cream 1 application by RECTAL route twice daily. As directed insulin glargine (BASAGLAR KWIKPEN U-100 INSULIN) 100 unit/mL (3 mL) inpn Inject 30 Units subcutaneously every morning. (titrating up as directed) Insulin Thompsons, Disposable, (BD ULTRA-FINE EMILY PEN NEEDLE) 32 gauge x ndle Use one needle for each dose. 1/day with Glargine. Lancets lancets Test blood sugar(s) 3 times daily. Dx: Type 2 DM - Uncontrolled E11.65 Insulin: No lidocaine (LMX) 4 % cream Apply thin layer to affected area three times a day as needed for pain lisinopril (ZESTRIL, PRINIVIL) 10 mg tablet Take 1 tablet by mouth twice daily. As directed mometasone-formoterol (DULERA) 100-5 mcg/actuation inhaler Inhale 2 Puffs as instructed twice daily. mupirocin (BACTROBAN) 2 % ointment APPLY TO AFFECTED AREA ONCE DAILY nadolol (CORGARD) 80 mg tablet Take 2 tablets by mouth once daily. omeprazole (PRILOSEC) 20 mg capsule TAKE 1 CAPSULE BY MOUTH DAILY Omeprazole Magnesium (PRILOSEC OTC) 20 mg tablet Take 1 tablet by mouth daily before breakfast. 1/2 hr before meal. (Patient not taking: Reported on 07/03/2018 ) ondansetron orally disintegrating (ZOFRAN ODT) 4 mg disintegrating tablet Take 1 tablet by mouth every 8 hours as needed. orphenadrine ER (NORFLEX) 100 mg tablet Take 1 tablet by mouth twice daily as needed for Muscle Spasm. oxybutynin ER (DITROPAN XL) 15 mg 24 hr Extended Rel Tab TAKE 1 TABLET BY MOUTH ONCE DAILY. oxyCODONE-acetaminophen (PERCOCET) 5-325 mg tablet Take 1 tablet by mouth three times daily as needed for up to 7 days. Recurrent leg ulcer pregabalin (LYRICA) 100 mg capsule Take 1 capsule by mouth three times daily for 90 days. promethazine (PHENERGAN) 25 mg tablet Take 1 tablet by mouth every 6 hours as needed. QUEtiapine (SEROQUEL) 300 mg tablet Take 1 tablet by mouth daily at bedtime. Also takes [address] Patterson. (Patient taking differently: Take 300 mg by mouth daily at bedtime. ) rizatriptan (MAXALT) 5 mg tablet Take 1-2 tablets by mouth as needed. May repeat in 2 hours if needed traMADol (ULTRAM) 50 mg tablet Take 1-2 tablets by mouth every 6 hours as needed for up to 90 days. triamcinolone acetonide (KENALOG) 0.1 % cream Apply 1 application to affected area twice daily. For itchy lesions for 2 weeks (torso or extremities) as directed valACYclovir (VALTREX) 500 mg tablet TAKE 1 TABLET BY MOUTH DAILY No current facility-administered medications for this visit. OBJECTIVE: BP 143/85 Pulse 67 Resp 20 Wt (!) 151.5 kg (334 lb) BMI 55.58 kg/m? Patient is alert, oriented times 3, no apparent distress, affect is bright, reactive. Last 5 Encounter BP Readings: Date: BP: 10/22/2018 143/85 09/27/2018 138/92 08/16/2018 136/78 08/01/2018 122/84 07/17/2018 120/76 Last 5 Encounter Wt Readings: Date: Wt: 10/22/2018 151.5 kg (334 lb) 09/27/2018 147.9 kg (326 lb) 08/01/2018 147 kg (324 lb) 07/17/2018 147 kg (324 lb) 07/03/2018 148.3 kg (327 lb) Noted open wound left perera at top of old wound. ASSESSMENT AND PLAN: Encounter Diagnosis ICD-10-CM 1. Class 3 severe obesity due to excess calories with serious comorbidity and body mass index (BMI) of 50.0 to 59.9 in adult ([facility]) E66.01 Z68.43 2. Generalized osteoarthritis M15.9 traMADol (ULTRAM) 50 mg tablet 3. Fibromyalgia M79.7 traMADol (ULTRAM) 50 mg tablet 4. Diabetic polyneuropathy associated with type 2 diabetes mellitus ([facility]) E11.42 pregabalin (LYRICA) 100 mg capsule Lyrica helping but need to try higher dose to see if better pain control at 100 mg TID 5. Back strain, sequela S39.012S DISCONTINUED: oxyCODONE-acetaminophen (PERCOCET) 5-325 mg tablet 6. Acute midline low back pain without sciatica M54.5 DISCONTINUED: oxyCODONE-acetaminophen (PERCOCET) 5-325 mg tablet 7. Ulcer of leg, chronic, left, limited to breakdown of skin ([facility]) L97.921 DISCONTINUED: oxyCODONE-acetaminophen (PERCOCET) 5-325 mg tablet 8. Infected ulcer of skin, limited to breakdown of skin ([facility]) L98.491 DISCONTINUED: oxyCODONE-acetaminophen (PERCOCET) 5-325 mg tablet L08.9 looks like infection being prevented by doxy for COPD exac Weight is up. Infection and dietary issues after stressors noted. Discussed SMART goals. See patient instructions. Above issues addressed with patient. Patient involved in shared decision making for management of medical issues. History and medications reviewed. Epic updated as needed Refills taken care of and meds adjusted as indicated after reviewed history, exam and labs. Health Maintenance reviewed. Updated record and/or ordered tests as recorded. Encouraged on efforts at healthy diet and regular exercise and adequate sleep. Needs to keep working on diet and exercise with lifestyle changes for effective weight loss as well as control of DM, and control of BP and lipids. Will see for close follow up at [facility]. and as needed. Terrie Lopez MD PROGRESS Observed: 11/02/2018 Status: COMPLETED Source: [place] 2:47 PM [facility] REPOSITORY HNO ID: [id number] Author: Stefani Landeros) Beba Service: (none) Author Type: Nurse Practitioner Type: Progress Notes Filed: 11/02/2018 3:06 PM Note Text: Subjective HPI Edel Lang is a 53 year old female who presents with pain on her tailbone, states she has a lump there. She noticed this this morning. She rates the pain an 8/10 and took Percocet. She has been sitting on cushions today due to the pain. Review of Systems Constitutional: Negative. Negative for chills and fever. Musculoskeletal: Negative. Skin: Lump in skin near gluteal cleft BP 112/76 Pulse 88 Temp 37.5 ?C (99.5 ?F) (Right Tympanic) Resp 24 Wt (!) 152.7 kg (336 lb 9.6 oz) BMI 56.01 kg/m? PAST MEDICAL HISTORY Diagnosis Date - FIBROMYALGIA - Cellulitis and abscess of unspecified site 11/26 right leg - Depressive disorder, not elsewhere classified - Dysmetabolic syndrome X 08/09/2006 - Esophageal reflux Gastroesophageal reflux - Generalized anxiety disorder - Hx of cystoscopy 09/11/2017 - Localized osteoarthrosis not specified whether primary or secondary, other specified sites bilateral knees - Morbid obesity with BMI of 50.0-59.9, adult (HCC) - Other genital herpes 08/09/2006 - Type II or unspecified type diabetes mellitus without mention of complication, not stated as uncontrolled - Unspecified asthma(493.90) - Unspecified essential hypertension Essential hypertension - Whooping cough, unspecified organism 11/26 PAST SURGICAL HISTORY Procedure Laterality Date - DELIVERY ONLY 1993 , low cervical - COLONOSCOP W/ OR W/O [facility] SPEC 03/24/2005 Colonoscopy - KNEE SCOPE,DIAGNOSTIC 2002 Arthroscopy, knee-right - KNEE SCOPE,DIAGNOSTIC 2003 Arthroscopy, knee-left - PAST SURGICAL HISTORY OF 1997 uterus out as well as cervix - PAST SURGICAL HISTORY OF 03/29/11 Excision of Rt lower leg lesion - PAST SURGICAL HISTORY OF 07/2014 cardiac cath - REMOVAL OF OVARY(S) 1999 Oophorectom bilateral - REMOVAL OF TONSILS,<10 Y/O 1967 Tonsillectomy - REPAIR INCISIONAL HERNIA,JUANA 05/11/11 with large ventralex mesh - [facility] N/CARPAL TUNNEL SURG 6- Carpal tunnel decomp right and excision ganglion righ thumb - REVISE MEDIAN N/CARPAL TUNNEL SURG Left 09/09/2015 Carpal tunnel decomp left - SKIN SUB GRAFT LEG 2012 left LE ALLERGIES Nia [Fexofenadine Hcl]; Ancef [Cefazolin Sodium]; Clindamycin; Duoderm [Other]; Elavil [Amitriptyline]; Macrobid [Nitrofurantoin Monohyd/M-Cryst]; Norvasc [Amlodipine]; Vancomycin MEDICATIONS albuterol HFA (VENTOLIN HFA) 90 mcg/actuation inhaler Inhale 2 Puffs as instructed every 4 hours as needed for Wheezing/Shortness of Breath. benzonatate (TESSALON PERLE) 100 mg capsule Take 2 capsules by mouth three times daily as needed. blood sugar diagnostic (FREESTYLE LITE STRIPS) test strip Test blood sugar(s) 6 times daily and as needed for symptoms of low or high sugars. Dx: Type 2 DM - Unontrolled E11.65 Insulin: Yes buPROPion XL (WELLBUTRIN XL) 300 mg 24 hr tablet Take 300 mg by mouth once daily. 450mg daily busPIRone (BUSPAR) 5 mg tablet Take 15 mg by mouth twice daily. Dose needs clarified with patients pharmacy. collagenase (SANTYL) ointment Apply 1 application to affected area once daily. To leg ulcers till healed COMPOUNDED PRESCRIPTION Nebulizer for home use. Diagnosis: Asthma exacerbation CPAP Initiate CPAP @ 14 cm of water with humidification. EPR setting of 3. Mask (per patient preference) optional chin strap (if indicated) , filters, tubing, humidifier and lifetime supplies. diazePAM (VALIUM) 5 mg tablet Take 10 mg by mouth once daily as needed for Anxiety. dicyclomine (BENTYL) 20 mg tablet Take 1 tablet by mouth three times daily. divalproex ER (DEPAKOTE ER) 250 mg 24 hr tablet Take 1 tablet by mouth once daily for 7 days. Add to the 500 mg once daily dose for 1 week then increase to two 500 mg daily(RX sent) divalproex ER (DEPAKOTE ER) 500 mg 24 hr tablet Take 2 tablets by mouth once daily. fluconazole (DIFLUCAN) 150 mg tablet 1 tablet today and repeat in 72 hours fluticasone (FLONASE) 50 mcg/actuation nasal spray Use 2 Sprays in each nostril once daily. gabapentin (NEURONTIN) 600 mg tablet Take 2 tablets by mouth three times daily for 168 days. glimepiride (AMARYL) 2 mg tablet TAKE 2 TABLETS BY MOUTH TWICE A DAY WITH MEALS DIRECTED hydrocortisone (ANUSOL-HC) 2.5 % rectal cream 1 application by RECTAL route twice daily. As directed insulin glargine (BASAGLAR KWIKPEN U-100 INSULIN) 100 unit/mL (3 mL) inpn Inject 30 Units subcutaneously every morning. (titrating up as directed) Insulin Thompsons, Disposable, (BD ULTRA-FINE EMILY PEN NEEDLE) 32 gauge x ndle Use one needle for each dose. 1/day with Glargine. Lancets lancets Test blood sugar(s) 3 times daily. Dx: Type 2 DM - Uncontrolled E11.65 Insulin: No lidocaine (LMX) 4 % cream Apply thin layer to affected area three times a day as needed for pain lisinopril (ZESTRIL, PRINIVIL) 10 mg tablet Take 1 tablet by mouth twice daily. As directed metFORMIN (GLUCOPHAGE) 500 mg tablet Take 500 mg by mouth twice daily. mometasone-formoterol (DULERA) 100-5 mcg/actuation inhaler Inhale 2 Puffs as instructed twice daily. mupirocin (BACTROBAN) 2 % ointment APPLY TO AFFECTED AREA ONCE DAILY nadolol (CORGARD) 80 mg tablet Take 2 tablets by mouth once daily. omeprazole (PRILOSEC) 20 mg capsule TAKE 1 CAPSULE BY MOUTH DAILY ondansetron orally disintegrating (ZOFRAN ODT) 4 mg disintegrating tablet Take 1 tablet by mouth every 8 hours as needed. orphenadrine ER (NORFLEX) 100 mg tablet Take 1 tablet by mouth twice daily as needed for Muscle Spasm. oxybutynin ER (DITROPAN XL) 15 mg 24 hr Extended Rel Tab TAKE 1 TABLET BY MOUTH ONCE DAILY. oxyCODONE-acetaminophen (PERCOCET) 5-325 mg tablet Take 1 tablet by mouth three times daily as needed for up to 7 days. Recurrent leg ulcer pregabalin (LYRICA) 100 mg capsule Take 1 capsule by mouth three times daily for 90 days. promethazine (PHENERGAN) 25 mg tablet Take 1 tablet by mouth every 6 hours as needed. QUEtiapine (SEROQUEL) 300 mg tablet Take 1 tablet by mouth daily at bedtime. Also takes [address] Patterson. rizatriptan (MAXALT) 5 mg tablet Take 1-2 tablets by mouth as needed. May repeat in 2 hours if needed traMADol (ULTRAM) 50 mg tablet Take 1-2 tablets by mouth every 6 hours as needed for up to 90 days. triamcinolone acetonide (KENALOG) 0.1 % cream Apply 1 application to affected area twice daily. For itchy lesions for 2 weeks (torso or extremities) as directed valACYclovir (VALTREX) 500 mg tablet TAKE 1 TABLET BY MOUTH DAILY benzocaine-menthol (CEPACOL) 15-2.6 mg lozg lozenge Take 1 Lozenge by mouth every 3 hours as needed. Omeprazole Magnesium (PRILOSEC OTC) 20 mg tablet Take 1 tablet by mouth daily before breakfast. 1/2 hr before meal. FAMILY HISTORY Problem Relation Age of Onset - Diabetes Mother - Hypertension Mother - Psychiatry Mother severe depression, bipolar - Asthma Mother - Arthritis Mother rheumatoid arthritis - other (fibromyalgia) Mother - Hypertension Father - Stroke Father - other (traumatic brain injury) Father - Alzheimer's Disease Maternal Grandmother - Hypertension Maternal Grandfather - Stroke Maternal Grandfather - other (parkinsons) Maternal Grandfather - Stroke Paternal Grandmother 8 - Hypertension Paternal Grandmother - Seizures Son - other (schizo - affective) Son - other (autism) Son - other (partial agenesis of corpus collosm) Son - other (depression) Son Social History Substance Use Topics - Smoking status: Never Smoker - Smokeless tobacco: Never Used - Alcohol use No Comment: recovering alcoholic-quit 1985 Objective Physical Exam Constitutional: She is well-developed, well-nourished, and in no distress. Neurological: She is alert. Skin: Skin is warm, dry and intact. No erythema. Nursing note and vitals reviewed. ASSESSMENT/PLAN: 1. Skin infection - ICD9: 686.9, ICD10: L08.9 (primary diagnosis) - Begin treatment with doxycycline - No lymphangetic streaking, this was defined for patient to watch for and to seek medical care immediately if appears - DOXYCYCLINE HYCLATE 100 MG CAPSULE - avoided bactim due to lisinopril 2. Antibiotic-induced yeast infection - ICD9: 112.9, E930.9, ICD10: B37.9, T36.95XA - FLUCONAZOLE 150 MG TABLET - Follow-up with your PCP in 3-5 days if symptoms have not improved or sooner if symptoms worsen - Discussed red flags and need for immediate medical evaluation if any occur. - Discussed supportive care treatment with fluids, rest and analgesia. - Discussed expected course of illness Stefani Yoder APRN.CNP CNOV Observed: 11/02/2018 Status: COMPLETED Source: [place] 2:30 PM [facility] REPOSITORY Office Visit (WSTR) RICKEYEDEL Marisa ([id number]) 1965 F Date Time Provider Department 11/02/18 2:30 PM STEFANI YODER (CHERIE) [facility] During your visit today, we recorded the following information about you: Temperature Pulse Respiration Blood pressure 99.5 degrees 88/minute 24/minute 112/76 Weight 152.7 kg Stefani Yoder APRN.CNP 11/02/2018 3:06 PM Signed Subjective HPI Edel Marisa Rickey is a 53 year old female who presents with pain on her tailbone, states she has a lump there. She noticed this this morning. She rates the pain an 8/10 and took Percocet. She has been sitting on cushions today due to the pain. Review of Systems Constitutional: Negative. Negative for chills and fever. Musculoskeletal: Negative. Skin: Lump in skin near gluteal cleft BP 112/76 Pulse 88 Temp 37.5 ?C (99.5 ?F) (Right Tympanic) Resp 24 Wt (!) 152.7 kg (336 lb 9.6 oz) BMI 56.01 kg/m? PAST MEDICAL HISTORY Diagnosis Date - FIBROMYALGIA - Cellulitis and abscess of unspecified site 11/26 right leg - Depressive disorder, not elsewhere classified - Dysmetabolic syndrome X 08/09/2006 - Esophageal reflux Gastroesophageal reflux - Generalized anxiety disorder - Hx of cystoscopy 09/11/2017 - Localized osteoarthrosis not specified whether primary or secondary, other specified sites bilateral knees - Morbid obesity with BMI of 50.0-59.9, adult (HCC) - Other genital herpes 08/09/2006 - Type II or unspecified type diabetes mellitus without mention of complication, not stated as uncontrolled - Unspecified asthma(493.90) - Unspecified essential hypertension Essential hypertension - Whooping cough, unspecified organism 11/26 PAST SURGICAL HISTORY Procedure Laterality Date - DELIVERY ONLY 1993 , low cervical - COLONOSCOP W/ OR W/O BRSH SPEC 03/24/2005 Colonoscopy - KNEE SCOPE,DIAGNOSTIC 2002 Arthroscopy, knee-right - KNEE SCOPE,DIAGNOSTIC 2003 Arthroscopy, knee-left - PAST SURGICAL HISTORY OF 1997 uterus out as well as cervix - PAST SURGICAL HISTORY OF 03/29/11 Excision of Rt lower leg lesion - PAST SURGICAL HISTORY OF 07/2014 cardiac cath - REMOVAL OF OVARY(S) 1999 Oophorectom bilateral - REMOVAL OF TONSILS,<12 Y/O 1967 Tonsillectomy - REPAIR INCISIONAL HERNIA,JUANA 05/11/11 with large ventralex mesh - REVISE MEDIAN N/CARPAL TUNNEL SURG -- Carpal tunnel decomp right and excision ganglion righ thumb - REVISE MEDIAN N/CARPAL TUNNEL SURG Left 09/09/2015 Carpal tunnel decomp left - SKIN SUB GRAFT LEG 2012 left LE ALLERGIES Nia [Fexofenadine Hcl]; Ancef [Cefazolin Sodium]; Clindamycin; Duoderm [Other]; Elavil [Amitriptyline]; Macrobid [Nitrofurantoin Monohyd/M-Cryst]; Norvasc [Amlodipine]; Vancomycin MEDICATIONS albuterol HFA (VENTOLIN HFA) 90 mcg/actuation inhaler Inhale 2 Puffs as instructed every 4 hours as needed for Wheezing/Shortness of Breath. benzonatate (TESSALON PERLE) 100 mg capsule Take 2 capsules by mouth three times daily as needed. blood sugar diagnostic (FREESTYLE LITE STRIPS) test strip Test blood sugar(s) 6 times daily and as needed for symptoms of low or high sugars. Dx: Type 2 DM - Unontrolled E11.65 Insulin: Yes buPROPion XL (WELLBUTRIN XL) 300 mg 24 hr tablet Take 300 mg by mouth once daily. 450mg daily busPIRone (BUSPAR) 5 mg tablet Take 15 mg by mouth twice daily. Dose needs clarified with patients pharmacy. collagenase (SANTYL) ointment Apply 1 application to affected area once daily. To leg ulcers till healed COMPOUNDED PRESCRIPTION Nebulizer for home use. Diagnosis: Asthma exacerbation CPAP Initiate CPAP @ 14 cm of water with humidification. EPR setting of 3. Mask (per patient preference) optional chin strap (if indicated) , filters, tubing, humidifier and lifetime supplies. diazePAM (VALIUM) 5 mg tablet Take 10 mg by mouth once daily as needed for Anxiety. dicyclomine (BENTYL) 20 mg tablet Take 1 tablet by mouth three times daily. divalproex ER (DEPAKOTE ER) 250 mg 24 hr tablet Take 1 tablet by mouth once daily for 7 days. Add to the 500 mg once daily dose for 1 week then increase to two 500 mg daily(RX sent) divalproex ER (DEPAKOTE ER) 500 mg 24 hr tablet Take 2 tablets by mouth once daily. fluconazole (DIFLUCAN) 150 mg tablet 1 tablet today and repeat in 72 hours fluticasone (FLONASE) 50 mcg/actuation nasal spray Use 2 Sprays in each nostril once daily. gabapentin (NEURONTIN) 600 mg tablet Take 2 tablets by mouth three times daily for 168 days. glimepiride (AMARYL) 2 mg tablet TAKE 2 TABLETS BY MOUTH TWICE A DAY WITH MEALS DIRECTED hydrocortisone (ANUSOL-HC) 2.5 % rectal cream 1 application by RECTAL route twice daily. As directed insulin glargine (BASAGLAR KWIKPEN U-100 INSULIN) 100 unit/mL (3 mL) inpn Inject 30 Units subcutaneously every morning. (titrating up as directed) Insulin Thompsons, Disposable, (BD ULTRA-FINE EMILY PEN NEEDLE) 32 gauge x ndle Use one needle for each dose. 1/day with Glargine. Lancets lancets Test blood sugar(s) 3 times daily. Dx: Type 2 DM - Uncontrolled E11.65 Insulin: No lidocaine (LMX) 4 % cream Apply thin layer to affected area three times a day as needed for pain lisinopril (ZESTRIL, PRINIVIL) 10 mg tablet Take 1 tablet by mouth twice daily. As directed metFORMIN (GLUCOPHAGE) 500 mg tablet Take 500 mg by mouth twice daily. mometasone-formoterol (DULERA) 100-5 mcg/actuation inhaler Inhale 2 Puffs as instructed twice daily. mupirocin (BACTROBAN) 2 % ointment APPLY TO AFFECTED AREA ONCE DAILY nadolol (CORGARD) 80 mg tablet Take 2 tablets by mouth once daily. omeprazole (PRILOSEC) 20 mg capsule TAKE 1 CAPSULE BY MOUTH DAILY ondansetron orally disintegrating (ZOFRAN ODT) 4 mg disintegrating tablet Take 1 tablet by mouth every 8 hours as needed. orphenadrine ER (NORFLEX) 100 mg tablet Take 1 tablet by mouth twice daily as needed for Muscle Spasm. oxybutynin ER (DITROPAN XL) 15 mg 24 hr Extended Rel Tab TAKE 1 TABLET BY MOUTH ONCE DAILY. oxyCODONE-acetaminophen (PERCOCET) 5-325 mg tablet Take 1 tablet by mouth three times daily as needed for up to 7 days. Recurrent leg ulcer pregabalin (LYRICA) 100 mg capsule Take 1 capsule by mouth three times daily for 90 days. promethazine (PHENERGAN) 25 mg tablet Take 1 tablet by mouth every 6 hours as needed. QUEtiapine (SEROQUEL) 300 mg tablet Take 1 tablet by mouth daily at bedtime. Also takes [address] Patterson. rizatriptan (MAXALT) 5 mg tablet Take 1-2 tablets by mouth as needed. May repeat in 2 hours if needed traMADol (ULTRAM) 50 mg tablet Take 1-2 tablets by mouth every 6 hours as needed for up to 90 days. triamcinolone acetonide (KENALOG) 0.1 % cream Apply 1 application to affected area twice daily. For itchy lesions for 2 weeks (torso or extremities) as directed valACYclovir (VALTREX) 500 mg tablet TAKE 1 TABLET BY MOUTH DAILY benzocaine-menthol (CEPACOL) 15-2.6 mg lozg lozenge Take 1 Lozenge by mouth every 3 hours as needed. Omeprazole Magnesium (PRILOSEC OTC) 20 mg tablet Take 1 tablet by mouth daily before breakfast. 1/2 hr before meal. FAMILY HISTORY Problem Relation Age of Onset - Diabetes Mother - Hypertension Mother - Psychiatry Mother severe depression, bipolar - Asthma Mother - Arthritis Mother rheumatoid arthritis - other (fibromyalgia) Mother - Hypertension Father - Stroke Father - other (traumatic brain injury) Father - Alzheimer's Disease Maternal Grandmother - Hypertension Maternal Grandfather - Stroke Maternal Grandfather - other (parkinsons) Maternal Grandfather - Stroke Paternal Grandmother 8 - Hypertension Paternal Grandmother - Seizures Son - other (schizo - affective) Son - other (autism) Son - other (partial agenesis of corpus collosm) Son - other (depression) Son Social History Substance Use Topics - Smoking status: Never Smoker - Smokeless tobacco: Never Used - Alcohol use No Comment: recovering alcoholic-quit 1985 Objective Physical Exam Constitutional: She is well-developed, well-nourished, and in no distress. Neurological: She is alert. Skin: Skin is warm, dry and intact. No erythema. Nursing note and vitals reviewed. ASSESSMENT/PLAN: 1. Skin infection - ICD9: 686.9, ICD10: L08.9 (primary diagnosis) - Begin treatment with doxycycline - No lymphangetic streaking, this was defined for patient to watch for and to seek medical care immediately if appears - DOXYCYCLINE HYCLATE 100 MG CAPSULE - avoided bactim due to lisinopril 2. Antibiotic-induced yeast infection - ICD9: 112.9, E930.9, ICD10: B37.9, T36.95XA - FLUCONAZOLE 150 MG TABLET - Follow-up with your PCP in 3-5 days if symptoms have not improved or sooner if symptoms worsen - Discussed red flags and need for immediate medical evaluation if any occur. - Discussed supportive care treatment with fluids, rest and analgesia. - Discussed expected course of illness PREMA Damon APRN.CNP 11/02/2018 3:01 PM Signed ASSESSMENT/PLAN: 1. Skin infection - ICD9: 686.9, ICD10: L08.9 (primary diagnosis) - Begin treatment with doxycycline - No lymphangetic streaking, this was defined for patient to watch for and to seek medical care immediately if appears - DOXYCYCLINE HYCLATE 100 MG CAPSULE - avoided bactim due to lisinopril 2. Antibiotic-induced yeast infection - ICD9: 112.9, E930.9, ICD10: B37.9, T36.95XA - FLUCONAZOLE 150 MG TABLET - Follow-up with your PCP in 3-5 days if symptoms have not improved or sooner if symptoms worsen - Discussed red flags and need for immediate medical evaluation if any occur. - Discussed supportive care treatment with fluids, rest and analgesia. - Discussed expected course of illness Stefani Yoder APRN.CHERIE ABSCESS (BOIL): You have a skin abscess, or boil. Boils usually develop when Staph bacteria get into the small glands or hair follicles in the skin and form a pus pocket. You should not squeeze an abscess or boil to drain it; this can cause the infection to spread to other areas under the skin. Boils are contagious, so you should dispose of soiled bandages carefully and not share your towel or wash cloth with others. Soak the area in warm water for 20- 30 minutes 3-4 times daily to help the healing. Oral antibiotics may be needed if the infection is severe or if it seems to be spreading. Please call your doctor if you have increased pain or swelling, chills or fever, red streaks going up the arm or leg, or continued pus drainage after 3-4 days. Referring Provider: SELF [[id number]] Allergies As of Date: 11/02/2018 Noted Allergy Reaction NIA (FEXOFENADINE HCL) 01/25/2006 12 - Shortness of Breath ANCEF (CEFAZOLIN SODIUM) 01/25/2006 4 - Hives CLINDAMYCIN 01/05/2007 6 - Diarrhea duoderm [Other] 05/21/2007 Comments: severe burning pain at point of contact. No redness. ELAVIL (AMITRIPTYLINE) 04/27/2007 Comments: hallucinations MACROBID (NITROFURANTOIN MONOHYD/*05/15/2007 4 - Hives NORVASC (AMLODIPINE) 12/11/2008 7 - Swelling VANCOMYCIN 08/01/2018 7 - Swelling Comments: legs swell and turn red Date Reviewed: 11/02/2018 Reviewed by: Stefani ([facility]) Beba - Fully Assessed Reason for Visit: Acute Visit [896] Cmt: cyst on tailbone x this morning Primary Visit Diagnosis:Skin infection [L08.9] Other Visit Diagnosis:Antibiotic-induced yeast infection [B37.9, T36.95XA] Order(s):doxycycline hyclate (VIBRAMYCIN) 100 mg capsuleTake 1 capsule by mouth twice daily for 10 days.Disp: 20 capsuleRfl: 0 fluconazole (DIFLUCAN) 150 mg tablet1 tablet today and repeat in 72 hoursDisp: 2 tabletRfl: 0 Prescriptions as of 11/02/2018 Sig: ALBUTEROL SULFATE HFA 90 MCG/* Inhale 2 Puffs as instructed * BENZONATATE 100 MG CAPSULE Take 2 capsules by mouth thre* BLOOD SUGAR DIAGNOSTIC STRIPS Test blood sugar(s) 6 times d* BUPROPION XL 300 MG 24 HR TAB Take 300 mg by mouth once josé* BUSPIRONE 5 MG TABLET Take 15 mg by mouth twice josé* COLLAGENASE CLOSTRIDIUM HISTO* Apply 1 application to affect* COMPOUNDED PRESCRIPTION Nebulizer for home use. Diagn* CPAP Initiate CPAP @ 14 cm of wate* DIAZEPAM 5 MG TABLET Take 10 mg by mouth once kala* DICYCLOMINE 20 MG TABLET Take 1 tablet by mouth three * DIVALPROEX ER 250 MG TABLET,E* Take 1 tablet by mouth once d* DIVALPROEX ER 500 MG TABLET,E* Take 2 tablets by mouth once * FLUCONAZOLE 150 MG TABLET 1 tablet today and repeat in * FLUTICASONE 50 MCG/ACTUATION * Use 2 Sprays in each nostril * GABAPENTIN 600 MG TABLET Take 2 tablets by mouth three* GLIMEPIRIDE 2 MG TABLET TAKE 2 TABLETS BY MOUTH TWICE* HYDROCORTISONE 2.5 % TOPICAL * 1 application by RECTAL route* INSULIN GLARGINE (U-100) 100 * Inject 30 Units subcutaneousl* PEN NEEDLE, DIABETIC 32 GAUGE* Use one needle for each dose.* LANCETS Test blood sugar(s) 3 times d* LIDOCAINE 4 % TOPICAL CREAM Apply thin layer to affected * LISINOPRIL 10 MG TABLET Take 1 tablet by mouth twice * METFORMIN 500 MG TABLET Take 500 mg by mouth twice da* MOMETASONE-FORMOTEROL HFA 100* Inhale 2 Puffs as instructed * MUPIROCIN 2 % TOPICAL OINTMENT APPLY TO AFFECTED AREA ONCE D* NADOLOL 80 MG TABLET Take 2 tablets by mouth once * OMEPRAZOLE 20 MG CAPSULE,MELINDA* TAKE 1 CAPSULE BY MOUTH DAILY ONDANSETRON 4 MG DISINTEGRATI* Take 1 tablet by mouth every * ORPHENADRINE CITRATE ER 100 M* Take 1 tablet by mouth twice * OXYBUTYNIN CHLORIDE ER 15 MG * TAKE 1 TABLET BY MOUTH ONCE D* OXYCODONE-ACETAMINOPHEN 5 MG-* Take 1 tablet by mouth three * PREGABALIN 100 MG CAPSULE Take 1 capsule by mouth three* PROMETHAZINE 25 MG TABLET Take 1 tablet by mouth every * QUETIAPINE 300 MG TABLET Take 1 tablet by mouth daily * Patient taking differently: Take 300 mg by mouth daily at* RIZATRIPTAN 5 MG TABLET Take 1-2 tablets by mouth as * TRAMADOL 50 MG TABLET Take 1-2 tablets by mouth nathalie* TRIAMCINOLONE ACETONIDE 0.1 %* Apply 1 application to affect* VALACYCLOVIR 500 MG TABLET TAKE 1 TABLET BY MOUTH DAILY BENZOCAINE-MENTHOL 15 MG-2.6 * Take 1 Lozenge by mouth every* Patient not taking: Reported on 06/07/2018 DOXYCYCLINE HYCLATE 100 MG CA* Take 1 capsule by mouth twice* OMEPRAZOLE MAGNESIUM 20 MG TA* Take 1 tablet by mouth daily * Patient not taking: Reported on 07/03/2018 Problem List As Of Date 11/02/2018 Noted Resolved ESOPHAGEAL REFLUX [K21.9] More... Unspecified asthma(493.90) [J45.909] 06/02/2017 More... 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 Unspecified vitamin D deficiency [E55.9] INVALID FOR*02/27/2013 GENITAL HERPES NEC [A60.00] INVALID FOR* URGE AND STRESS MIXED INCONTINENCE [N39.46] INVALID FOR* LACERATION -NOT COMPLICATED BREAST [S21.009A] INVALID FOR*02/27/2013 Diabetes (HCC) [E11.9] INVALID FOR* Enthesopathy of unspecified site [M77.9] INVALID FOR*02/27/2013 Adenopathy, Hilar [R59.0] INVALID FOR* Major depressive disorder, recurrent episode (H*INVALID FOR* Abnormal mammogram, unspecified [R92.8] INVALID FOR*06/02/2017 Wound, open, breast [S21.009A] INVALID FOR*02/27/2013 Benign neoplasm of skin of lower limb, includin*INVALID FOR*02/27/2013 Umbilical hernia without mention of obstruction*INVALID FOR*06/02/2017 Ventral hernia, unspecified, without mention of*INVALID FOR*06/02/2017 Anxiety [F41.9] INVALID FOR* Vitamin d deficiency [E55.9] INVALID FOR* Urge incontinence of urine [N39.41] INVALID FOR*06/02/2017 Pain of left lower leg [M79.662] INVALID FOR* Carpal tunnel syndrome of right wrist [G56.01] INVALID FOR*06/02/2017 Morbid obesity with BMI of 45.0-49.9, adult (HC* ABRAM (obstructive sleep apnea) [G47.33] INVALID FOR* More... Left carpal tunnel syndrome [G56.02] INVALID FOR*06/02/2017 Asthma with COPD with exacerbation (HCC) [J44.1*INVALID FOR* HTN (hypertension) [I10] INVALID FOR* Ganglion cyst of finger of right hand [M67.441] INVALID FOR* More... Other instructions from your clinician: ASSESSMENT/PLAN: 1. Skin infection - ICD9: 686.9, ICD10: L08.9 (primary diagnosis) - Begin treatment with doxycycline - No lymphangetic streaking, this was defined for patient to watch for and to seek medical care immediately if appears - DOXYCYCLINE HYCLATE 100 MG CAPSULE - avoided bactim due to lisinopril 2. Antibiotic-induced yeast infection - ICD9: 112.9, E930.9, ICD10: B37.9, T36.95XA - FLUCONAZOLE 150 MG TABLET - Follow-up with your PCP in 3-5 days if symptoms have not improved or sooner if symptoms worsen - Discussed red flags and need for immediate medical evaluation if any occur. - Discussed supportive care treatment with fluids, rest and analgesia. - Discussed expected course of illness Stefani Yoder APRN.CATH LAB RADIOLOGICAL TECHNOLOGIST ABSCESS (BOIL): You have a skin abscess, or boil. Boils usually develop when Staph bacteria get into the small glands or hair follicles in the skin and form a pus pocket. You should not squeeze an abscess or boil to drain it; this can cause the infection to spread to other areas under the skin. Boils are contagious, so you should dispose of soiled bandages carefully and not share your towel or wash cloth with others. Soak the area in warm water for 20-30 minutes 3-4 times daily to help the healing. Oral antibiotics may be needed if the infection is severe or if it seems to be spreading. Please call your doctor if you have increased pain or swelling, chills or fever, red streaks going up the arm or leg, or continued pus drainage after 3-4 days. Prescriptions ordered this encounter Disp Refills Start End DOXYCYCLINE HYCLATE 100 MG CAPSULE 20 c* 0 11/02/2018 11/12/2018 Route: ORAL Sig: Take 1 capsule by mouth twice daily for 10 days. FLUCONAZOLE 150 MG TABLET 2 ta* 0 11/02/2018 Si tablet today and repeat in 72 hours Medications Discontinued During This Encounter fluconazole (DIFLUCAN) 150 mg tablet 2 ta* 0 09/27/2018 11/02/2018 Si tablet today and repeat in 72 hours Disc: Reason for discontinue is not on file. Encounter Status:Closed by STEFANI YODER on 11/02/18 PROGRESS Observed: 11/01/2018 Status: COMPLETED Source: [place] 11:38 AM [facility] REPOSITORY HNO ID: [id number] Author: Terrie Lopez Service: (none) Author Type: Physician Type: Progress Notes Filed: 11/22/2018 7:28 PM Note Text: Separate notes for DM SMA: Day 4 of migraine Broth and gingerale because of nausea. Wound on leg healing. PROGRESS Observed: 11/01/2018 Status: COMPLETED Source: [place] 10:00 AM [facility] REPOSITORY HNO ID: [id number] Author: Terrie Lopez Service: (none) Author Type: Physician Type: Progress Notes Filed: 11/22/2018 7:28 PM Note Text: Patient presents for DM [facility] with Dr. Lopez and Chris Howard PharmD GOALS: <7% Edel Lang is a 53 year old female was last seen by PCP, Dr. Lopez on 10/22 - no med changes made. At last SMA on 09/27, no med changes were made because patient had a lot of stressors going on in her life and she wanted to attempt to manage those first. Subjective: Patient follows with FRANCISCA Weber (endo) for DM Patient doesn't think she is going to continue seeing endo - would prefer to have everything managed at this clinic with PCP and PharmD Reports BG this AM was in 400s Thirsty during SMA today - drank lots of water Wants to reschedule initial appt with PharmD - wants Jose M Whyte Says sugars are very poorly controlled FBG was 401 today Reports FBGs usually >200 Reports being in more pain lately Has had a migraine for 4 days Testing up to 6x/day (needs script for strips changes) No lows Noticing some vision changes Past DM medication: Metformin - diarrhea Current DM regimen: Metformin 1000mg BID Glimepiride 2mg tabs - 2 tabs BID Insulin glargine (Basaglar) 22 units daily - self-titrate 1 unit every 3 days if FBG >200 (taking 26 units every morning) Insulin lispro 1 units for every 50 (taking TIDAC for goal <200; usually taking 1-3 units with each meal) ? Patient denies CP, SOB, AG, blurred vision, dizziness or lightheadedness ? Patient denies symptoms of hypoglycemia (sweating, anxiety, palpitations, hunger, and tremor) ? Patient reports symptoms hyperglycemia (polyuria, polydipsia) ? Patient denies potential medication adverse effects DIET/EXERCISE/SOCIAL Hx: ? No changes ALLERGIES Allergen Reactions - Nai [Fexofenadi* Shortness of Breath - Ancef [Cefazolin So* Hives - Clindamycin Diarrhea - Duoderm [Other] severe burning pain at point of contact. No redness. - Elavil [Amitriptyli* hallucinations - Macrobid [Nitrofura* Hives - Norvasc [Amlodipine] Swelling - Vancomycin Swelling legs swell and turn red PAST MEDICAL HISTORY Diagnosis Date - FIBROMYALGIA - Cellulitis and abscess of unspecified site 11/26 right leg - Depressive disorder, not elsewhere classified - Dysmetabolic syndrome X 08/09/2006 - Esophageal reflux Gastroesophageal reflux - Generalized anxiety disorder - Hx of cystoscopy 09/11/2017 - Localized osteoarthrosis not specified whether primary or secondary, other specified sites bilateral knees - Morbid obesity with BMI of 50.0-59.9, adult (HCC) - Other genital herpes 08/09/2006 - Type II or unspecified type diabetes mellitus without mention of complication, not stated as uncontrolled - Unspecified asthma(493.90) - Unspecified essential hypertension Essential hypertension - Whooping cough, unspecified organism 11/26 Current Outpatient Prescriptions: albuterol HFA (VENTOLIN HFA) 90 mcg/actuation inhaler Inhale 2 Puffs as instructed every 4 hours as needed for Wheezing/Shortness of Breath. benzocaine-menthol (CEPACOL) 15-2.6 mg lozg lozenge Take 1 Lozenge by mouth every 3 hours as needed. (Patient not taking: Reported on 06/07/2018 ) benzonatate (TESSALON PERLE) 100 mg capsule Take 2 capsules by mouth three times daily as needed. blood sugar diagnostic (FREESTYLE LITE STRIPS) test strip Test blood sugar(s) 4 times daily. Dx: Type 2 DM - Unontrolled E11.65 Insulin: Yes buPROPion XL (WELLBUTRIN XL) 300 mg 24 hr tablet Take 300 mg by mouth once daily. 450mg daily busPIRone (BUSPAR) 5 mg tablet Take 15 mg by mouth twice daily. Dose needs clarified with patients pharmacy. collagenase (SANTYL) ointment Apply 1 application to affected area once daily. To leg ulcers till healed COMPOUNDED PRESCRIPTION Nebulizer for home use. Diagnosis: Asthma exacerbation CPAP Initiate CPAP @ 14 cm of water with humidification. EPR setting of 3. Mask (per patient preference) optional chin strap (if indicated) , filters, tubing, humidifier and lifetime supplies. (Patient not taking: Reported on 08/01/2018 ) diazePAM (VALIUM) 5 mg tablet Take 10 mg by mouth once daily as needed for Anxiety. dicyclomine (BENTYL) 20 mg tablet Take 1 tablet by mouth three times daily. divalproex ER (DEPAKOTE ER) 500 mg 24 hr tablet take 1 tablet by mouth daily fluconazole (DIFLUCAN) 150 mg tablet 1 tablet today and repeat in 72 hours fluticasone (FLONASE) 50 mcg/actuation nasal spray Use 2 Sprays in each nostril once daily. gabapentin (NEURONTIN) 600 mg tablet Take 2 tablets by mouth three times daily for 168 days. glimepiride (AMARYL) 2 mg tablet TAKE 2 TABLETS BY MOUTH TWICE A DAY WITH MEALS DIRECTED hydrocortisone (ANUSOL-HC) 2.5 % rectal cream 1 application by RECTAL route twice daily. As directed insulin glargine (BASAGLAR KWIKPEN U-100 INSULIN) 100 unit/mL (3 mL) inpn Inject 22 Units subcutaneously every morning. Insulin Thompsons, Disposable, (BD ULTRA-FINE EMILY PEN NEEDLE) 32 gauge x 5/32 ndle Use one needle for each dose. 1/day with Glargine. Lancets lancets Test blood sugar(s) 3 times daily. Dx: Type 2 DM - Uncontrolled E11.65 Insulin: No lidocaine (LMX) 4 % cream Apply thin layer to affected area three times a day as needed for pain lisinopril (ZESTRIL, PRINIVIL) 10 mg tablet Take 1 tablet by mouth twice daily. As directed metFORMIN (GLUCOPHAGE) 500 mg tablet Take 500 mg by mouth twice daily. mometasone-formoterol (DULERA) 100-5 mcg/actuation inhaler Inhale 2 Puffs as instructed twice daily. mupirocin (BACTROBAN) 2 % ointment APPLY TO AFFECTED AREA ONCE DAILY nadolol (CORGARD) 80 mg tablet Take 2 tablets by mouth once daily. omeprazole (PRILOSEC) 20 mg capsule TAKE 1 CAPSULE BY MOUTH DAILY Omeprazole Magnesium (PRILOSEC OTC) 20 mg tablet Take 1 tablet by mouth daily before breakfast. 1/2 hr before meal. (Patient not taking: Reported on 07/03/2018 ) ondansetron orally disintegrating (ZOFRAN ODT) 4 mg disintegrating tablet Take 1 tablet by mouth every 8 hours as needed. orphenadrine ER (NORFLEX) 100 mg tablet Take 1 tablet by mouth twice daily as needed for Muscle Spasm. oxybutynin ER (DITROPAN XL) 15 mg 24 hr Extended Rel Tab TAKE 1 TABLET BY MOUTH ONCE DAILY. pregabalin (LYRICA) 100 mg capsule Take 1 capsule by mouth three times daily for 90 days. promethazine (PHENERGAN) 25 mg tablet Take 1 tablet by mouth every 6 hours as needed. QUEtiapine (SEROQUEL) 300 mg tablet Take 1 tablet by mouth daily at bedtime. Also takes [address] Patterson. (Patient taking differently: Take 300 mg by mouth daily at bedtime. ) rizatriptan (MAXALT) 5 mg tablet Take 1-2 tablets by mouth as needed. May repeat in 2 hours if needed traMADol (ULTRAM) 50 mg tablet Take 1-2 tablets by mouth every 6 hours as needed for up to 90 days. triamcinolone acetonide (KENALOG) 0.1 % cream Apply 1 application to affected area twice daily. For itchy lesions for 2 weeks (torso or extremities) as directed valACYclovir (VALTREX) 500 mg tablet TAKE 1 TABLET BY MOUTH DAILY No current facility-administered medications for this visit. GLYCEMIC CONTROL: ? SMBG?s: FBG was 401 today; reports FBGs usually >200 ? Hypoglycemia: none Objective: VITALS: BP 126/80 Pulse 70 Resp 20 Wt (!) 146.7 kg (323 lb 8 oz) BMI 53.83 kg/m? Last 3 Encounter BP Readings: Date: BP: 10/22/2018 143/85 09/27/2018 138/92 08/16/2018 136/78 Wt: 151.5 kg (334 lb) BMI: 55.58 kg/(m2) LABS Lab Results Component Value Date HBA1C 9.1 07/03/2018 HBA1C 7.6 03/01/2018 HBA1C 7.0 09/28/2017 HBA1C 7.4 05/11/2017 CMP: Glucose 179 03/01/2018 BUN 14 03/01/2018 Creatinine 0.84 03/01/2018 Sodium 138 03/01/2018 Potassium 4.1 03/01/2018 Chloride 100 03/01/2018 CO2 23 03/01/2018 Protein, Total 7.2 03/01/2018 Albumin 4.0 03/01/2018 Calcium 8.7 03/01/2018 Alkaline Phosphatase 54 03/01/2018 Bilirubin, Total 0.3 03/01/2018 AST 25 03/01/2018 ALT 21 03/01/2018 eGFR >60 (per CMP on 03/01/18) Last Lipid Panel Lab Results Component Value Date CHOL 113 09/28/2017 Lab Results Component Value Date HDL 31 09/28/2017 Lab Results Component Value Date LDL 59 09/28/2017 Lab Results Component Value Date TG 114 09/28/2017 Albumin/Creat Ratio (mg/g) Date Value 05/11/2017 Not calculated Component Latest Ref Rng AND Units 05/11/2017 06/02/2017 09/28/2017 03/01/2018 Protein, Total 6.3 - 8.0 g/dL 7.5 7.5 7.2 Albumin 3.9 - 4.9 g/dL 3.7 (L) 3.5 (L) 4.0 Calcium 8.5 - 10.2 mg/dL 9.5 9.8 9.3 8.7 Bilirubin, Total 0.2 - 1.3 mg/dL 0.5 0.4 0.3 Alkaline Phosphatase 32 - 117 U/L 64 71 54 AST 13 - 35 U/L 24 24 25 Glucose 74 - 99 mg/dL 142 (H) 158 (H) 141 (H) 179 (H) BUN 7 - 21 mg/dL 10 18 16 14 Creatinine 0.58 - 0.96 mg/dL 0.90 0.82 0.93 0.84 Sodium 136 - 144 mmol/L 140 139 138 138 Potassium 3.7 - 5.1 mmol/L 4.3 4.7 4.5 4.1 Chloride 97 - 105 mmol/L 99 98 97 100 CO2 22 - 30 mmol/L 26 24 26 23 Anion Gap 9 - 18 mmol/L 15 17 15 15 ALT 7 - 38 U/L 20 20 21 eGFR- >60 >60 >60 >60 eGFR-All Other Races . >60 >60 >60 >60 Triglyceride 30 - 149 mg/dL 114 Cholesterol, Total 100 - 199 mg/dL 113 HDL Cholesterol >55 mg/dL 31 (L) VLDL Cholesterol 6 - 40 mg/dL 23 LDL Cholesterol 60 - 129 mg/dL 59 (L) Fasting Time hrs 3 TC:HDL Ratio 1.00 - 5.00 3.65 LDL:HDL Ratio 0.50 - 3.55 1.90 Non HDL Cholesterol 90 - 159 mg/dL 82 (L) Creatinine, Ur Random (UCRR) 20 - 300 mg/dL 167.0 Albumin, Urine Random 0.0 - 23.0 mg/L <12.0 Albumin/Creat Ratio 0 - 30 mg/g Not calculated Hemoglobin A1C 4.3 - 5.6 % 7.4 (H) 7.0 (H) 7.6 (H) Estimated Average Glucose mg/dL 166 154 171 ASSESSMENT/PLAN: Uncontrolled type 2 diabetes mellitus with hyperglycemia (HCC) - ICD9: 250.02, ICD10: E11.65 A1c goal <7%; uncontrolled (last A1c 9.1%) but due for recheck; SMBG log shows BGs highly elevated often >400; patient symptomatic for hyperglycemia in office today, also occasionally notices vision changes; reports adherence with medications; has followed with machine tracer at [facility] but interested in transferring DM care to PCP and PharmD - consult previously placed for PharmD; will increase basal insulin dose today; requested that patient continue checking BG and recording in log; patient interested in Freestyle Alejandro and also GLP-1 agonist - to address at initial PharmD appt; renal fxn and LFTs WNL and appropriate for continued use - INCREASE insulin glargine to 30 units daily and continue with self-titration parameters - CONTINUE metformin 1000mg BID, glimepiride 4mg BID, and insulin lispro sliding scale - Test strips refilled at patient request - Scheduled patient for initial appt with PharmD Patient is scheduled to see PCP 11/26/18. Patient to return to clinic for PharmD f/u 11/29/18. Patient verbalized understanding of instructions. Dr. Lopez and Chris Howard, PharmD The patient was seen; chart reviewed and I concur with the above evaluation and plan. PharmD and I discussed with DM SMA group medications for management of DM, HTN and lipids. Also reviewed diet and exercise to help with control of DM. Discussed with each patient individual meds and management of their diabetes issues. Encounter Diagnosis ICD-10-CM 1. Uncontrolled type 2 diabetes mellitus with hyperglycemia (HCC) E11.65 blood sugar diagnostic (FREESTYLE LITE STRIPS) test strip insulin glargine (BASAGLAR KWIKPEN U-100 INSULIN) 100 unit/mL (3 mL) inpn 2. Intractable migraine with aura without status migrainosus G43.119 divalproex ER (DEPAKOTE ER) 500 mg 24 hr tablet divalproex ER (DEPAKOTE ER) 250 mg 24 hr tablet Past 5 days of migraines 3. Back strain, sequela S39.012S oxyCODONE-acetaminophen (PERCOCET) 5-325 mg tablet 4. Acute midline low back pain without sciatica M54.5 oxyCODONE-acetaminophen (PERCOCET) 5-325 mg tablet 5. Ulcer of leg, chronic, left, limited to breakdown of skin (HCC) L97.921 oxyCODONE-acetaminophen (PERCOCET) 5-325 mg tablet 6. Infected ulcer of skin, limited to breakdown of skin (HCC) L98.491 oxyCODONE-acetaminophen (PERCOCET) 5-325 mg tablet L08.9 looks like infection being prevented by doxy for COPD exac Also saw patient after DM SMA since had other non-SMA issues that needed addressed. Overall pain control stable but having increased pain from leg ulcer. Needing short term percocet again. No signs of diversion or abuse of medication(s); no adverse effects. Continue present management. Also issue with increased migraines. Continue present management. May need meds adjusted if getting sugars under control not adequate to get migraines to settle down. PDMP website checked and validated. All prescriptions have been APPROPRIATELY filled. No suspicious activity was identified. 11/01/2018 by Terrie Lopez MD CNOV Observed: 11/01/2018 Status: COMPLETED Source: [place] 10:00 AM [facility] REPOSITORY Office Visit (INTMWS) EDEL LANG ([id number]) 1965 F Date Time Provider Department 11/01/18 10:00 AM TERRIE LOPEZ [facility]ina[facility] During your visit today, we recorded the following information about you: Pulse Respiration Blood pressure Weight 70/minute 20/minute 126/80 146.7 kg Terrie Lopez MD 11/22/2018 7:28 PM Signed Patient presents for DM SMA with Dr. Lopez and Chris Howard PharmD GOALS: <7% Edel Lang is a 53 year old female was last seen by PCP, Dr. Lopez on 10/22 - no med changes made. At last SMA on 09/27, no med changes were made because patient had a lot of stressors going on in her life and she wanted to attempt to manage those first. Subjective: Patient follows with FRANCISCA Weber (jos[facility]) for DM Patient doesn't think she is going to continue seeing endo - would prefer to have everything managed at this clinic with PCP and PharmD Reports BG this AM was in 400s Thirsty during SMA today - drank lots of water Wants to reschedule initial appt with PharmD - wants Freestyle Alejandro Says sugars are very poorly controlled FBG was 401 today Reports FBGs usually >200 Reports being in more pain lately Has had a migraine for 4 days Testing up to 6x/day (needs script for strips changes) No lows Noticing some vision changes Past DM medication: Metformin - diarrhea Current DM regimen: Metformin 1000mg BID Glimepiride 2mg tabs - 2 tabs BID Insulin glargine (Basaglar) 22 units daily - self-titrate 1 unit every 3 days if FBG >200 (taking 26 units every morning) Insulin lispro 1 units for every 50 (taking TIDAC for goal <200; usually taking 1-3 units with each meal) ? Patient denies CP, SOB, AG, blurred vision, dizziness or lightheadedness ? Patient denies symptoms of hypoglycemia (sweating, anxiety, palpitations, hunger, and tremor) ? Patient reports symptoms hyperglycemia (polyuria, polydipsia) ? Patient denies potential medication adverse effects DIET/EXERCISE/SOCIAL Hx: ? No changes ALLERGIES Allergen Reactions - Nia [Fexofenadi* Shortness of Breath - Ancef [Cefazolin So* Hives - Clindamycin Diarrhea - Duoderm [Other] severe burning pain at point of contact. No redness. - Elavil [Amitriptyli* hallucinations - Macrobid [Nitrofura* Hives - Norvasc [Amlodipine] Swelling - Vancomycin Swelling legs swell and turn red PAST MEDICAL HISTORY Diagnosis Date - FIBROMYALGIA - Cellulitis and abscess of unspecified site 11/26 right leg - Depressive disorder, not elsewhere classified - Dysmetabolic syndrome X 08/09/2006 - Esophageal reflux Gastroesophageal reflux - Generalized anxiety disorder - Hx of cystoscopy 09/11/2017 - Localized osteoarthrosis not specified whether primary or secondary, other specified sites bilateral knees - Morbid obesity with BMI of 50.0-59.9, adult (HCC) - Other genital herpes 08/09/2006 - Type II or unspecified type diabetes mellitus without mention of complication, not stated as uncontrolled - Unspecified asthma(493.90) - Unspecified essential hypertension Essential hypertension - Whooping cough, unspecified organism 11/26 Current Outpatient Prescriptions: albuterol HFA (VENTOLIN HFA) 90 mcg/actuation inhaler Inhale 2 Puffs as instructed every 4 hours as needed for Wheezing/Shortness of Breath. benzocaine-menthol (CEPACOL) 15-2.6 mg lozg lozenge Take 1 Lozenge by mouth every 3 hours as needed. (Patient not taking: Reported on 06/07/2018 ) benzonatate (TESSALON PERLE) 100 mg capsule Take 2 capsules by mouth three times daily as needed. blood sugar diagnostic (FREESTYLE LITE STRIPS) test strip Test blood sugar(s) 4 times daily. Dx: Type 2 DM - Unontrolled E11.65 Insulin: Yes buPROPion XL (WELLBUTRIN XL) 300 mg 24 hr tablet Take 300 mg by mouth once daily. 450mg daily busPIRone (BUSPAR) 5 mg tablet Take 15 mg by mouth twice daily. Dose needs clarified with patients pharmacy. collagenase (SANTYL) ointment Apply 1 application to affected area once daily. To leg ulcers till healed COMPOUNDED PRESCRIPTION Nebulizer for home use. Diagnosis: Asthma exacerbation CPAP Initiate CPAP @ 14 cm of water with humidification. EPR setting of 3. Mask (per patient preference) optional chin strap (if indicated) , filters, tubing, humidifier and lifetime supplies. (Patient not taking: Reported on 08/01/2018 ) diazePAM (VALIUM) 5 mg tablet Take 10 mg by mouth once daily as needed for Anxiety. dicyclomine (BENTYL) 20 mg tablet Take 1 tablet by mouth three times daily. divalproex ER (DEPAKOTE ER) 500 mg 24 hr tablet take 1 tablet by mouth daily fluconazole (DIFLUCAN) 150 mg tablet 1 tablet today and repeat in 72 hours fluticasone (FLONASE) 50 mcg/actuation nasal spray Use 2 Sprays in each nostril once daily. gabapentin (NEURONTIN) 600 mg tablet Take 2 tablets by mouth three times daily for 168 days. glimepiride (AMARYL) 2 mg tablet TAKE 2 TABLETS BY MOUTH TWICE A DAY WITH MEALS DIRECTED hydrocortisone (ANUSOL-HC) 2.5 % rectal cream 1 application by RECTAL route twice daily. As directed insulin glargine (BASAGLAR KWIKPEN U-100 INSULIN) 100 unit/mL (3 mL) inpn Inject 22 Units subcutaneously every morning. Insulin Thompsons, Disposable, (BD ULTRA-FINE EMILY PEN NEEDLE) 32 gauge x ndle Use one needle for each dose. 1/day with Glargine. Lancets lancets Test blood sugar(s) 3 times daily. Dx: Type 2 DM - Uncontrolled E11.65 Insulin: No lidocaine (LMX) 4 % cream Apply thin layer to affected area three times a day as needed for pain lisinopril (ZESTRIL, PRINIVIL) 10 mg tablet Take 1 tablet by mouth twice daily. As directed metFORMIN (GLUCOPHAGE) 500 mg tablet Take 500 mg by mouth twice daily. mometasone-formoterol (DULERA) 100-5 mcg/actuation inhaler Inhale 2 Puffs as instructed twice daily. mupirocin (BACTROBAN) 2 % ointment APPLY TO AFFECTED AREA ONCE DAILY nadolol (CORGARD) 80 mg tablet Take 2 tablets by mouth once daily. omeprazole (PRILOSEC) 20 mg capsule TAKE 1 CAPSULE BY MOUTH DAILY Omeprazole Magnesium (PRILOSEC OTC) 20 mg tablet Take 1 tablet by mouth daily before breakfast. 1/2 hr before meal. (Patient not taking: Reported on 07/03/2018 ) ondansetron orally disintegrating (ZOFRAN ODT) 4 mg disintegrating tablet Take 1 tablet by mouth every 8 hours as needed. orphenadrine ER (NORFLEX) 100 mg tablet Take 1 tablet by mouth twice daily as needed for Muscle Spasm. oxybutynin ER (DITROPAN XL) 15 mg 24 hr Extended Rel Tab TAKE 1 TABLET BY MOUTH ONCE DAILY. pregabalin (LYRICA) 100 mg capsule Take 1 capsule by mouth three times daily for 90 days. promethazine (PHENERGAN) 25 mg tablet Take 1 tablet by mouth every 6 hours as needed. QUEtiapine (SEROQUEL) 300 mg tablet Take 1 tablet by mouth daily at bedtime. Also takes [address] Patterson. (Patient taking differently: Take 300 mg by mouth daily at bedtime. ) rizatriptan (MAXALT) 5 mg tablet Take 1-2 tablets by mouth as needed. May repeat in 2 hours if needed traMADol (ULTRAM) 50 mg tablet Take 1-2 tablets by mouth every 6 hours as needed for up to 90 days. triamcinolone acetonide (KENALOG) 0.1 % cream Apply 1 application to affected area twice daily. For itchy lesions for 2 weeks (torso or extremities) as directed valACYclovir (VALTREX) 500 mg tablet TAKE 1 TABLET BY MOUTH DAILY No current facility-administered medications for this visit. GLYCEMIC CONTROL: ? SMBG?s: FBG was 401 today; reports FBGs usually >200 ? Hypoglycemia: none Objective: VITALS: BP 126/80 Pulse 70 Resp 20 Wt (!) 146.7 kg (323 lb 8 oz) BMI 53.83 kg/m? Last 3 Encounter BP Readings: Date: BP: 10/22/2018 143/85 09/27/2018 138/92 08/16/2018 136/78 Wt: 151.5 kg (334 lb) BMI: 55.58 kg/(m2) LABS Lab Results Component Value Date HBA1C 9.1 07/03/2018 HBA1C 7.6 03/01/2018 HBA1C 7.0 09/28/2017 HBA1C 7.4 05/11/2017 CMP: Glucose 179 03/01/2018 BUN 14 03/01/2018 Creatinine 0.84 03/01/2018 Sodium 138 03/01/2018 Potassium 4.1 03/01/2018 Chloride 100 03/01/2018 CO2 23 03/01/2018 Protein, Total 7.2 03/01/2018 Albumin 4.0 03/01/2018 Calcium 8.7 03/01/2018 Alkaline Phosphatase 54 03/01/2018 Bilirubin, Total 0.3 03/01/2018 AST 25 03/01/2018 ALT 21 03/01/2018 eGFR >60 (per CMP on 03/01/18) Last Lipid Panel Lab Results Component Value Date CHOL 113 09/28/2017 Lab Results Component Value Date HDL 31 09/28/2017 Lab Results Component Value Date LDL 59 09/28/2017 Lab Results Component Value Date TG 114 09/28/2017 Albumin/Creat Ratio (mg/g) Date Value 05/11/2017 Not calculated Component Latest Ref Rng AND Units 05/11/2017 06/02/2017 09/28/2017 03/01/2018 Protein, Total 6.3 - 8.0 g/dL 7.5 7.5 7.2 Albumin 3.9 - 4.9 g/dL 3.7 (L) 3.5 (L) 4.0 Calcium 8.5 - 10.2 mg/dL 9.5 9.8 9.3 8.7 Bilirubin, Total 0.2 - 1.3 mg/dL 0.5 0.4 0.3 Alkaline Phosphatase 32 - 117 U/L 64 71 54 AST 13 - 35 U/L 24 24 25 Glucose 74 - 99 mg/dL 142 (H) 158 (H) 141 (H) 179 (H) BUN 7 - 21 mg/dL 10 18 16 14 Creatinine 0.58 - 0.96 mg/dL 0.90 0.82 0.93 0.84 Sodium 136 - 144 mmol/L 140 139 138 138 Potassium 3.7 - 5.1 mmol/L 4.3 4.7 4.5 4.1 Chloride 97 - 105 mmol/L 99 98 97 100 CO2 22 - 30 mmol/L 26 24 26 23 Anion Gap 9 - 18 mmol/L 15 17 15 15 ALT 7 - 38 U/L 20 20 21 eGFR- >60 >60 >60 >60 eGFR-All Other Races . >60 >60 >60 >60 Triglyceride 30 - 149 mg/dL 114 Cholesterol, Total 100 - 199 mg/dL 113 HDL Cholesterol >55 mg/dL 31 (L) VLDL Cholesterol 6 - 40 mg/dL 23 LDL Cholesterol 60 - 129 mg/dL 59 (L) Fasting Time hrs 3 TC:HDL Ratio 1.00 - 5.00 3.65 LDL:HDL Ratio 0.50 - 3.55 1.90 Non HDL Cholesterol 90 - 159 mg/dL 82 (L) Creatinine, Ur Random (UCRR) 20 - 300 mg/dL 167.0 Albumin, Urine Random 0.0 - 23.0 mg/L <12.0 Albumin/Creat Ratio 0 - 30 mg/g Not calculated Hemoglobin A1C 4.3 - 5.6 % 7.4 (H) 7.0 (H) 7.6 (H) Estimated Average Glucose mg/dL 166 154 171 ASSESSMENT/PLAN: Uncontrolled type 2 diabetes mellitus with hyperglycemia (HCC) - ICD9: 250.02, ICD10: E11.65 A1c goal <7%; uncontrolled (last A1c 9.1%) but due for recheck; SMBG log shows BGs highly elevated often >400; patient symptomatic for hyperglycemia in office today, also occasionally notices vision changes; reports adherence with medications; has followed with machine tracer at [facility] but interested in transferring DM care to PCP and PharmD - consult previously placed for PharmD; will increase basal insulin dose today; requested that patient continue checking BG and recording in log; patient interested in Freestyle Alejandro and also GLP-1 agonist - to address at initial PharmD appt; renal fxn and LFTs WNL and appropriate for continued use - INCREASE insulin glargine to 30 units daily and continue with self-titration parameters - CONTINUE metformin 1000mg BID, glimepiride 4mg BID, and insulin lispro sliding scale - Test strips refilled at patient request - Scheduled patient for initial appt with PharmD Patient is scheduled to see PCP 11/26/18. Patient to return to clinic for PharmD f/u 11/29/18. Patient verbalized understanding of instructions. Dr. Lopez and Chris Howard, PharmD The patient was seen; chart reviewed and I concur with the above evaluation and plan. PharmD and I discussed with DM SMA group medications for management of DM, HTN and lipids. Also reviewed diet and exercise to help with control of DM. Discussed with each patient individual meds and management of their diabetes issues. Encounter Diagnosis ICD-10-CM 1. Uncontrolled type 2 diabetes mellitus with hyperglycemia (HCC) E11.65 blood sugar diagnostic (FREESTYLE LITE STRIPS) test strip insulin glargine (BASAGLAR KWIKPEN U-100 INSULIN) 100 unit/mL (3 mL) inpn 2. Intractable migraine with aura without status migrainosus G43.119 divalproex ER (DEPAKOTE ER) 500 mg 24 hr tablet divalproex ER (DEPAKOTE ER) 250 mg 24 hr tablet Past 5 days of migraines 3. Back strain, sequela S39.012S oxyCODONE-acetaminophen (PERCOCET) 5-325 mg tablet 4. Acute midline low back pain without sciatica M54.5 oxyCODONE-acetaminophen (PERCOCET) 5-325 mg tablet 5. Ulcer of leg, chronic, left, limited to breakdown of skin (HCC) L97.921 oxyCODONE-acetaminophen (PERCOCET) 5-325 mg tablet 6. Infected ulcer of skin, limited to breakdown of skin (HCC) L98.491 oxyCODONE-acetaminophen (PERCOCET) 5-325 mg tablet L08.9 looks like infection being prevented by doxy for COPD exac Also saw patient after DM SMA since had other non-SMA issues that needed addressed. Overall pain control stable but having increased pain from leg ulcer. Needing short term percocet again. No signs of diversion or abuse of medication(s); no adverse effects. Continue present management. Also issue with increased migraines. Continue present management. May need meds adjusted if getting sugars under control not adequate to get migraines to settle down. PDMP website checked and validated. All prescriptions have been APPROPRIATELY filled. No suspicious activity was identified. 11/01/2018 by MD CHRIS Smith, PHARMACIST 11/01/2018 11:15 AM Signed Increase insulin to 30 units daily Continue checking blood sugar and write them down in log Keep appointment with PharmD on 11/29. Terrie Lopez MD 11/22/2018 7:28 PM Signed Separate notes for DM SMA: Day 4 of migraine Broth and gingerale because of nausea. Wound on leg healing. Referring Provider: TERRIE LOPEZ [[id number]] Allergies As of Date: 11/01/2018 Noted Allergy Reaction NIA (FEXOFENADINE HCL) 01/25/2006 12 - Shortness of Breath ANCEF (CEFAZOLIN SODIUM) 01/25/2006 4 - Hives CLINDAMYCIN 01/05/2007 6 - Diarrhea duoderm [Other] 05/21/2007 Comments: severe burning pain at point of contact. No redness. ELAVIL (AMITRIPTYLINE) 04/27/2007 Comments: hallucinations MACROBID (NITROFURANTOIN MONOHYD/*05/15/2007 4 - Hives NORVASC (AMLODIPINE) 12/11/2008 7 - Swelling VANCOMYCIN 08/01/2018 7 - Swelling Comments: legs swell and turn red Date Reviewed: 11/01/2018 Reviewed by: Tiffany Martin LPN - Fully Assessed Reason for Visit: DM SMA [Other] Primary Visit Diagnosis:Uncontrolled type 2 diabetes mellitus with hyperglycemia (HCC) [E11.65] Other Visit Diagnoses:Intractable migraine with aura without status migrainosus [G43.119] Comment:Past 5 days of migraines Back strain, sequela [S39.012S] Acute midline low back pain without sciatica [M54.5] Ulcer of leg, chronic, left, limited to breakdown of skin (HCC) [L97.921] Infected ulcer of skin, limited to breakdown of skin (HCC) [L98.491, L08.9] Comment:looks like infection being prevented by doxy for COPD exac Order(s):blood sugar diagnostic (FREESTYLE LITE STRIPS) test stripTest blood sugar(s) 6 times daily and as needed for symptoms of low or high sugars. Dx: Type 2 DM - Unontrolled E11.65 Insulin: YesDisp: 200 StripRfl: 11 insulin glargine (BASAGLAR KWIKPEN U-100 INSULIN) 100 unit/mL (3 mL) inpnInject 30 Units subcutaneously every morning. (titrating up as directed)Disp: Rfl: divalproex ER (DEPAKOTE ER) 500 mg 24 hr tabletTake 2 tablets by mouth once daily.Disp: 60 tabletRfl: 11 divalproex ER (DEPAKOTE ER) 250 mg 24 hr tabletTake 1 tablet by mouth once daily for 7 days. Add to the 500 mg once daily dose for 1 week then increase to two 500 mg daily(RX sent)Disp: 7 tabletRfl: 0 [] oxyCODONE-acetaminophen (PERCOCET) 5-325 mg tabletTake 1 tablet by mouth three times daily as needed for up to 7 days. Recurrent leg ulcerDisp: 21 tabletRfl: 0 Prescriptions as of 11/01/2018 Sig: BLOOD SUGAR DIAGNOSTIC STRIPS Test blood sugar(s) 6 times d* INSULIN GLARGINE (U-100) 100 * Inject 30 Units subcutaneousl* DIVALPROEX ER 500 MG TABLET,E* Take 2 tablets by mouth once * DIVALPROEX ER 250 MG TABLET,E* Take 1 tablet by mouth once d* OXYCODONE-ACETAMINOPHEN 5 MG-* Take 1 tablet by mouth three * ONDANSETRON 4 MG DISINTEGRATI* Take 1 tablet by mouth every * PREGABALIN 100 MG CAPSULE Take 1 capsule by mouth three* METFORMIN 500 MG TABLET Take 500 mg by mouth twice da* X TRAMADOL 50 MG TABLET Take 1-2 tablets by mouth nathalie* COLLAGENASE CLOSTRIDIUM HISTO* Apply 1 application to affect* RIZATRIPTAN 5 MG TABLET Take 1-2 tablets by mouth as * X FLUCONAZOLE 150 MG TABLET 1 tablet today and repeat in * GABAPENTIN 600 MG TABLET Take 2 tablets by mouth three* X PEN NEEDLE, DIABETIC 32 GAUGE* Use one needle for each dose.* GLIMEPIRIDE 2 MG TABLET TAKE 2 TABLETS BY MOUTH TWICE* BUPROPION XL 300 MG 24 HR TAB Take 300 mg by mouth once josé* BENZONATATE 100 MG CAPSULE Take 2 capsules by mouth thre* VALACYCLOVIR 500 MG TABLET TAKE 1 TABLET BY MOUTH DAILY PROMETHAZINE 25 MG TABLET Take 1 tablet by mouth every * LISINOPRIL 10 MG TABLET Take 1 tablet by mouth twice * X ORPHENADRINE CITRATE ER 100 M* Take 1 tablet by mouth twice * FLUTICASONE 50 MCG/ACTUATION * Use 2 Sprays in each nostril * MUPIROCIN 2 % TOPICAL OINTMENT APPLY TO AFFECTED AREA ONCE D* NADOLOL 80 MG TABLET Take 2 tablets by mouth once * LIDOCAINE 4 % TOPICAL CREAM Apply thin layer to affected * OMEPRAZOLE 20 MG CAPSULE,MELINDA* TAKE 1 CAPSULE BY MOUTH DAILY BUSPIRONE 5 MG TABLET Take 15 mg by mouth twice josé* OXYBUTYNIN CHLORIDE ER 15 MG * TAKE 1 TABLET BY MOUTH ONCE D* DICYCLOMINE 20 MG TABLET Take 1 tablet by mouth three * OMEPRAZOLE MAGNESIUM 20 MG TA* Take 1 tablet by mouth daily * HYDROCORTISONE 2.5 % TOPICAL * 1 application by RECTAL route* LANCETS Test blood sugar(s) 3 times d* BENZOCAINE-MENTHOL 15 MG-2.6 * Take 1 Lozenge by mouth every* DIAZEPAM 5 MG TABLET Take 10 mg by mouth once kala* TRIAMCINOLONE ACETONIDE 0.1 %* Apply 1 application to affect* MOMETASONE-FORMOTEROL HFA 100* Inhale 2 Puffs as instructed * ALBUTEROL SULFATE HFA 90 MCG/* Inhale 2 Puffs as instructed * CPAP Initiate CPAP @ 14 cm of wate* COMPOUNDED PRESCRIPTION Nebulizer for home use. Diagn* QUETIAPINE 300 MG TABLET Take 1 tablet by mouth daily * Patient taking differently: Take 300 mg by mouth daily at* Problem List As Of Date 11/01/2018 Noted Resolved ESOPHAGEAL REFLUX [K21.9] More... Unspecified asthma(493.90) [J45.909] 06/02/2017 More... 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 Unspecified vitamin D deficiency [E55.9] INVALID FOR*02/27/2013 GENITAL HERPES NEC [A60.00] INVALID FOR* URGE AND STRESS MIXED INCONTINENCE [N39.46] INVALID FOR* LACERATION -NOT COMPLICATED BREAST [S21.009A] INVALID FOR*02/27/2013 Diabetes (HCC) [E11.9] INVALID FOR* Enthesopathy of unspecified site [M77.9] INVALID FOR*02/27/2013 Adenopathy, Hilar [R59.0] INVALID FOR* Major depressive disorder, recurrent episode (H*INVALID FOR* Abnormal mammogram, unspecified [R92.8] INVALID FOR*06/02/2017 Wound, open, breast [S21.009A] INVALID FOR*02/27/2013 Benign neoplasm of skin of lower limb, includin*INVALID FOR*02/27/2013 Umbilical hernia without mention of obstruction*INVALID FOR*06/02/2017 Ventral hernia, unspecified, without mention of*INVALID FOR*06/02/2017 Anxiety [F41.9] INVALID FOR* Vitamin d deficiency [E55.9] INVALID FOR* Urge incontinence of urine [N39.41] INVALID FOR*06/02/2017 Pain of left lower leg [M79.662] INVALID FOR* Carpal tunnel syndrome of right wrist [G56.01] INVALID FOR*06/02/2017 Morbid obesity with BMI of 45.0-49.9, adult (HC* ABRAM (obstructive sleep apnea) [G47.33] INVALID FOR* More... Left carpal tunnel syndrome [G56.02] INVALID FOR*06/02/2017 Asthma with COPD with exacerbation (HCC) [J44.1*INVALID FOR* HTN (hypertension) [I10] INVALID FOR* Ganglion cyst of finger of right hand [M67.441] INVALID FOR* More... Other instructions from your clinician: Increase insulin to 30 units daily Continue checking blood sugar and write them down in log Keep appointment with PharmD on 11/29. Prescriptions ordered this encounter Disp Refills Start End BLOOD SUGAR DIAGNOSTIC STRIPS 200 * 11 11/01/2018 Sig: Test blood sugar(s) 6 times daily and as needed for symptoms of low or high sugars. Dx: Type 2 DM - Unontrolled E11.65 Insulin: Yes INSULIN GLARGINE (U-100) 100 UNIT/ML* 11/01/2018 11/01/2018 Class: Med Update Route: SUBCUTANEOUS Sig: Inject 27 Units subcutaneously every morning. (titrating up as directed) INSULIN GLARGINE (U-100) 100 UNIT/ML* 11/01/2018 Class: Med Update Route: SUBCUTANEOUS Sig: Inject 30 Units subcutaneously every morning. (titrating up as directed) DIVALPROEX ER 500 MG TABLET,EXTENDED* 60 t* 11 11/01/2018 Cmt: Intentional dose increase Route: ORAL Sig: Take 2 tablets by mouth once daily. DIVALPROEX ER 250 MG TABLET,EXTENDED* 7 ta* 0 11/01/2018 11/14/2018 Route: ORAL Sig: Take 1 tablet by mouth once daily for 7 days. Add to the 500 mg once daily dose for 1 week then increase to two 500 mg daily(RX sent) OXYCODONE-ACETAMINOPHEN 5 MG-325 MG * 21 t* 0 11/01/2018 11/08/2018 Class: Print RX Route: ORAL Sig: Take 1 tablet by mouth three times daily as needed for up to 7 days. Recurrent leg ulcer Medications Discontinued During This Encounter blood sugar diagnostic (FREESTYLE LI* 150 * 11 08/16/2018 11/01/2018 Sig: Test blood sugar(s) 4 times daily. Dx: Type 2 DM - Unontrolled E11.65 Insulin: Yes Disc: Reason for discontinue is not on file. insulin glargine (BASAGLAR KWIKPEN U* 10/07/2018 11/01/2018 Class: Historical Med Route: SUBCUTANEOUS Sig: Inject 22 Units subcutaneously every morning. Disc: Reason for discontinue is not on file. insulin glargine (BASAGLAR KWIKPEN U* 11/01/2018 11/01/2018 Class: Med Update Route: SUBCUTANEOUS Sig: Inject 27 Units subcutaneously every morning. (titrating up as directed) Disc: Reason for discontinue is not on file. divalproex ER (DEPAKOTE ER) 500 mg 2* 90 t* 3 12/04/2017 11/01/2018 Cmt: Dispense this instead of DR Sig: take 1 tablet by mouth daily Disc: Reason for discontinue is not on file. oxyCODONE-acetaminophen (PERCOCET) 5* 21 t* 0 10/22/2018 11/01/2018 Class: Print RX Route: ORAL Sig: Take 1 tablet by mouth three times daily as needed for up to 7 days. Recurrent leg ulcer Disc: Reason for discontinue is not on file. Encounter Status:Closed by TERRIE LOPEZ MD on 11/22/18 PROGRESS Observed: 10/22/2018 Status: COMPLETED Source: [place] 3:49 PM [facility] REPOSITORY HNO ID: [id number] Author: Terrie Lopez Service: (none) Author Type: Physician Type: Progress Notes Filed: 11/05/2018 11:36 PM Note Text: Last Monday was in ER--leg infection noted. Clindamycin. Still with bad pain D dimer elevated--US neg for DVT. Seeing BJ since sugars were 600. Humalog 1 unit for every 50 Basaglar 22 units with increase every 3 days by 1 unit if over 200 in AM. Metformin 1 tablet BID. Has seen some sugars in 120's. CNOV Observed: 10/22/2018 Status: COMPLETED Source: [place] 3:00 PM [facility] REPOSITORY Office Visit (INTMWS) EDEL LANG ([id number]) 1965 F Date Time Provider Department 10/22/18 3:00 PM TERRIE LOPEZ INTMWS During your visit today, we recorded the following information about you: Pulse Respiration Blood pressure Weight 67/minute 20/minute 143/85 151.5 kg Terrie Lopez MD 10/22/2018 4:33 PM Addendum Nutrition Goals: Keep Journal of diet to being to appointments Whey protein in skim milk Get adequate hydration Exercise goals: Move more between studying. Consider chair exercises on You [employer] Work up to 150 minutes per week Titrating off Gabapentin: Gabapentin 600 mg currently taking 2 pills 3 times daily (2-2-2-) Decrease by 1 pill per day every 3 to 7 days (2-1-2, then 1-1-2 then 1-0-2 then 1-0-1, then 0-0-1 then stop) Terrie Lopez MD 11/05/2018 11:36 PM Signed Last Monday was in ER--leg infection noted. Clindamycin. Still with bad pain D dimer elevated--US neg for DVT. Seeing BJ since sugars were 600. Humalog 1 unit for every 50 Basaglar 22 units with increase every 3 days by 1 unit if over 200 in AM. Metformin 1 tablet BID. Has seen some sugars in 120's. Terrie Lopez MD 11/05/2018 11:36 PM Signed Patient presents with: Weight Loss SMA SUBJECTIVE: Edel Lang is a 53 year old year old lady here today for Weight Loss SMA--Jaqueline Cid. During SMA discussed issues with weight. SMART goals reviewed. See Assessment and Plan. One on one after SMA discussed: Last Monday was in ER--leg infection noted. Clindamycin. Still with bad pain D dimer elevated--US neg for DVT. Seeing BJ since sugars were 600. Humalog 1 unit for every 50 Basaglar 22 units with increase every 3 days by 1 unit if over 200 in AM. Metformin 1 tablet BID. Has seen some sugars in 120's. PAST MEDICAL HISTORY Diagnosis Date - FIBROMYALGIA - Cellulitis and abscess of unspecified site 11/26 right leg - Depressive disorder, not elsewhere classified - Dysmetabolic syndrome X 08/09/2006 - Esophageal reflux Gastroesophageal reflux - Generalized anxiety disorder - Hx of cystoscopy 09/11/2017 - Localized osteoarthrosis not specified whether primary or secondary, other specified sites bilateral knees - Morbid obesity with BMI of 50.0-59.9, adult (HCC) - Other genital herpes 08/09/2006 - Type II or unspecified type diabetes mellitus without mention of complication, not stated as uncontrolled - Unspecified asthma(493.90) - Unspecified essential hypertension Essential hypertension - Whooping cough, unspecified organism 11/26 Current Outpatient Prescriptions: metFORMIN (GLUCOPHAGE) 500 mg tablet Take 500 mg by mouth twice daily. albuterol HFA (VENTOLIN HFA) 90 mcg/actuation inhaler Inhale 2 Puffs as instructed every 4 hours as needed for Wheezing/Shortness of Breath. benzocaine-menthol (CEPACOL) 15-2.6 mg lozg lozenge Take 1 Lozenge by mouth every 3 hours as needed. (Patient not taking: Reported on 06/07/2018 ) benzonatate (TESSALON PERLE) 100 mg capsule Take 2 capsules by mouth three times daily as needed. blood sugar diagnostic (FREESTYLE LITE STRIPS) test strip Test blood sugar(s) 6 times daily and as needed for symptoms of low or high sugars. Dx: Type 2 DM - Unontrolled E11.65 Insulin: Yes buPROPion XL (WELLBUTRIN XL) 300 mg 24 hr tablet Take 300 mg by mouth once daily. 450mg daily busPIRone (BUSPAR) 5 mg tablet Take 15 mg by mouth twice daily. Dose needs clarified with patients pharmacy. collagenase (SANTYL) ointment Apply 1 application to affected area once daily. To leg ulcers till healed COMPOUNDED PRESCRIPTION Nebulizer for home use. Diagnosis: Asthma exacerbation CPAP Initiate CPAP @ 14 cm of water with humidification. EPR setting of 3. Mask (per patient preference) optional chin strap (if indicated) , filters, tubing, humidifier and lifetime supplies. diazePAM (VALIUM) 5 mg tablet Take 10 mg by mouth once daily as needed for Anxiety. dicyclomine (BENTYL) 20 mg tablet Take 1 tablet by mouth three times daily. divalproex ER (DEPAKOTE ER) 250 mg 24 hr tablet Take 1 tablet by mouth once daily for 7 days. Add to the 500 mg once daily dose for 1 week then increase to two 500 mg daily(RX sent) divalproex ER (DEPAKOTE ER) 500 mg 24 hr tablet Take 2 tablets by mouth once daily. doxycycline hyclate (VIBRAMYCIN) 100 mg capsule Take 1 capsule by mouth twice daily for 10 days. fluconazole (DIFLUCAN) 150 mg tablet 1 tablet today and repeat in 72 hours fluticasone (FLONASE) 50 mcg/actuation nasal spray Use 2 Sprays in each nostril once daily. gabapentin (NEURONTIN) 600 mg tablet Take 2 tablets by mouth three times daily for 168 days. glimepiride (AMARYL) 2 mg tablet TAKE 2 TABLETS BY MOUTH TWICE A DAY WITH MEALS DIRECTED hydrocortisone (ANUSOL-HC) 2.5 % rectal cream 1 application by RECTAL route twice daily. As directed insulin glargine (BASAGLAR KWIKPEN U-100 INSULIN) 100 unit/mL (3 mL) inpn Inject 30 Units subcutaneously every morning. (titrating up as directed) Insulin [place]ons, Disposable, (BD ULTRA-FINE EMILY PEN NEEDLE) 32 gauge x 5/32 ndle Use one needle for each dose. 1/day with Glargine. Lancets lancets Test blood sugar(s) 3 times daily. Dx: Type 2 DM - Uncontrolled E11.65 Insulin: No lidocaine (LMX) 4 % cream Apply thin layer to affected area three times a day as needed for pain lisinopril (ZESTRIL, PRINIVIL) 10 mg tablet Take 1 tablet by mouth twice daily. As directed mometasone-formoterol (DULERA) 100-5 mcg/actuation inhaler Inhale 2 Puffs as instructed twice daily. mupirocin (BACTROBAN) 2 % ointment APPLY TO AFFECTED AREA ONCE DAILY nadolol (CORGARD) 80 mg tablet Take 2 tablets by mouth once daily. omeprazole (PRILOSEC) 20 mg capsule TAKE 1 CAPSULE BY MOUTH DAILY Omeprazole Magnesium (PRILOSEC OTC) 20 mg tablet Take 1 tablet by mouth daily before breakfast. 1/2 hr before meal. (Patient not taking: Reported on 07/03/2018 ) ondansetron orally disintegrating (ZOFRAN ODT) 4 mg disintegrating tablet Take 1 tablet by mouth every 8 hours as needed. orphenadrine ER (NORFLEX) 100 mg tablet Take 1 tablet by mouth twice daily as needed for Muscle Spasm. oxybutynin ER (DITROPAN XL) 15 mg 24 hr Extended Rel Tab TAKE 1 TABLET BY MOUTH ONCE DAILY. oxyCODONE-acetaminophen (PERCOCET) 5-325 mg tablet Take 1 tablet by mouth three times daily as needed for up to 7 days. Recurrent leg ulcer pregabalin (LYRICA) 100 mg capsule Take 1 capsule by mouth three times daily for 90 days. promethazine (PHENERGAN) 25 mg tablet Take 1 tablet by mouth every 6 hours as needed. QUEtiapine (SEROQUEL) 300 mg tablet Take 1 tablet by mouth daily at bedtime. Also takes [address] Patterson. (Patient taking differently: Take 300 mg by mouth daily at bedtime. ) rizatriptan (MAXALT) 5 mg tablet Take 1-2 tablets by mouth as needed. May repeat in 2 hours if needed traMADol (ULTRAM) 50 mg tablet Take 1-2 tablets by mouth every 6 hours as needed for up to 90 days. triamcinolone acetonide (KENALOG) 0.1 % cream Apply 1 application to affected area twice daily. For itchy lesions for 2 weeks (torso or extremities) as directed valACYclovir (VALTREX) 500 mg tablet TAKE 1 TABLET BY MOUTH DAILY No current facility-administered medications for this visit. OBJECTIVE: BP 143/85 Pulse 67 Resp 20 Wt (!) 151.5 kg (334 lb) BMI 55.58 kg/m? Patient is alert, oriented times 3, no apparent distress, affect is bright, reactive. Last 5 Encounter BP Readings: Date: BP: 10/22/2018 143/85 09/27/2018 138/92 08/16/2018 136/78 08/01/2018 122/84 07/17/2018 120/76 Last 5 Encounter Wt Readings: Date: Wt: 10/22/2018 151.5 kg (334 lb) 09/27/2018 147.9 kg (326 lb) 08/01/2018 147 kg (324 lb) 07/17/2018 147 kg (324 lb) 07/03/2018 148.3 kg (327 lb) Noted open wound left perera at top of old wound. ASSESSMENT AND PLAN: Encounter Diagnosis ICD-10-CM 1. Class 3 severe obesity due to excess calories with serious comorbidity and body mass index (BMI) of 50.0 to 59.9 in adult ([facility]) E66.01 Z68.43 2. Generalized osteoarthritis M15.9 traMADol (ULTRAM) 50 mg tablet 3. Fibromyalgia M79.7 traMADol (ULTRAM) 50 mg tablet 4. Diabetic polyneuropathy associated with type 2 diabetes mellitus ([facility]) E11.42 pregabalin (LYRICA) 100 mg capsule Lyrica helping but need to try higher dose to see if better pain control at 100 mg TID 5. Back strain, sequela S39.012S DISCONTINUED: oxyCODONE-acetaminophen (PERCOCET) 5-325 mg tablet 6. Acute midline low back pain without sciatica M54.5 DISCONTINUED: oxyCODONE-acetaminophen (PERCOCET) 5-325 mg tablet 7. Ulcer of leg, chronic, left, limited to breakdown of skin ([facility]) L97.921 DISCONTINUED: oxyCODONE-acetaminophen (PERCOCET) 5-325 mg tablet 8. Infected ulcer of skin, limited to breakdown of skin ([facility]) L98.491 DISCONTINUED: oxyCODONE-acetaminophen (PERCOCET) 5-325 mg tablet L08.9 looks like infection being prevented by doxy for COPD exac Weight is up. Infection and dietary issues after stressors noted. Discussed SMART goals. See patient instructions. Above issues addressed with patient. Patient involved in shared decision making for management of medical issues. History and medications reviewed. Epic updated as needed Refills taken care of and meds adjusted as indicated after reviewed history, exam and labs. Health Maintenance reviewed. Updated record and/or ordered tests as recorded. Encouraged on efforts at healthy diet and regular exercise and adequate sleep. Needs to keep working on diet and exercise with lifestyle changes for effective weight loss as well as control of DM, and control of BP and lipids. Will see for close follow up at DM [facility]. and as needed. Terrie Lopez MD Referring Provider: TERRIE LOPEZ [[id number]] Allergies As of Date: 10/22/2018 Noted Allergy Reaction NIA (FEXOFENADINE HCL) 01/25/2006 12 - Shortness of Breath ANCEF (CEFAZOLIN SODIUM) 01/25/2006 4 - Hives CLINDAMYCIN 01/05/2007 6 - Diarrhea duoderm [Other] 05/21/2007 Comments: severe burning pain at point of contact. No redness. ELAVIL (AMITRIPTYLINE) 04/27/2007 Comments: hallucinations MACROBID (NITROFURANTOIN MONOHYD/*05/15/2007 4 - Hives NORVASC (AMLODIPINE) 12/11/2008 7 - Swelling VANCOMYCIN 08/01/2018 7 - Swelling Comments: legs swell and turn red Date Reviewed: 09/27/2018 Reviewed by: Tiffany Martin LPN - Fully Assessed Reason for Visit: Weight Loss [facility] [Other] Primary Visit Diagnosis:Class 3 severe obesity due to excess calories with serious comorbidity and body mass index (BMI) of 50.0 to 59.9 in adult ([facility]) [E66.01, Z68.43] Other Visit Diagnoses:Generalized osteoarthritis [M15.9] Fibromyalgia [M79.7] Diabetic polyneuropathy associated with type 2 diabetes mellitus ([facility]) [E11.42] Comment:Lyrica helping but need to try higher dose to see if better pain control at 100 mg TID Back strain, sequela [S39.012S] Acute midline low back pain without sciatica [M54.5] Ulcer of leg, chronic, left, limited to breakdown of skin ([facility]) [L97.921] Infected ulcer of skin, limited to breakdown of skin ([facility]) [L98.491, L08.9] Comment:looks like infection being prevented by doxy for COPD exac Order(s):traMADol (ULTRAM) 50 mg tabletTake 1-2 tablets by mouth every 6 hours as needed for up to 90 days.Disp: 120 tabletRfl: 2 ondansetron orally disintegrating (ZOFRAN ODT) 4 mg disintegrating tabletTake 1 tablet by mouth every 8 hours as needed.Disp: 12 tabletRfl: 2 pregabalin (LYRICA) 100 mg capsuleTake 1 capsule by mouth three times daily for 90 days.Disp: 90 capsuleRfl: 2 Prescriptions as of 10/22/2018 Sig: METFORMIN 500 MG TABLET Take 500 mg by mouth twice da* X INSULIN GLARGINE (U-100) 100 * Inject 22 Units subcutaneousl* ALBUTEROL SULFATE HFA 90 MCG/* Inhale 2 Puffs as instructed * BENZOCAINE-MENTHOL 15 MG-2.6 * Take 1 Lozenge by mouth every* Patient not taking: Reported on 06/07/2018 BENZONATATE 100 MG CAPSULE Take 2 capsules by mouth thre* BUPROPION XL 300 MG 24 HR TAB Take 300 mg by mouth once josé* BUSPIRONE 5 MG TABLET Take 15 mg by mouth twice josé* COLLAGENASE CLOSTRIDIUM HISTO* Apply 1 application to affect* COMPOUNDED PRESCRIPTION Nebulizer for home use. Diagn* CPAP Initiate CPAP @ 14 cm of wate* DIAZEPAM 5 MG TABLET Take 10 mg by mouth once kala* DICYCLOMINE 20 MG TABLET Take 1 tablet by mouth three * FLUTICASONE 50 MCG/ACTUATION * Use 2 Sprays in each nostril * GABAPENTIN 600 MG TABLET Take 2 tablets by mouth three* GLIMEPIRIDE 2 MG TABLET TAKE 2 TABLETS BY MOUTH TWICE* HYDROCORTISONE 2.5 % TOPICAL * 1 application by RECTAL route* PEN NEEDLE, DIABETIC 32 GAUGE* Use one needle for each dose.* LANCETS Test blood sugar(s) 3 times d* LIDOCAINE 4 % TOPICAL CREAM Apply thin layer to affected * LISINOPRIL 10 MG TABLET Take 1 tablet by mouth twice * MOMETASONE-FORMOTEROL HFA 100* Inhale 2 Puffs as instructed * MUPIROCIN 2 % TOPICAL OINTMENT APPLY TO AFFECTED AREA ONCE D* NADOLOL 80 MG TABLET Take 2 tablets by mouth once * OMEPRAZOLE 20 MG CAPSULE,MELINDA* TAKE 1 CAPSULE BY MOUTH DAILY OMEPRAZOLE MAGNESIUM 20 MG TA* Take 1 tablet by mouth daily * Patient not taking: Reported on 07/03/2018 ONDANSETRON 4 MG DISINTEGRATI* Take 1 tablet by mouth every * ORPHENADRINE CITRATE ER 100 M* Take 1 tablet by mouth twice * OXYBUTYNIN CHLORIDE ER 15 MG * TAKE 1 TABLET BY MOUTH ONCE D* PREGABALIN 100 MG CAPSULE Take 1 capsule by mouth three* PROMETHAZINE 25 MG TABLET Take 1 tablet by mouth every * QUETIAPINE 300 MG TABLET Take 1 tablet by mouth daily * Patient taking differently: Take 300 mg by mouth daily at* RIZATRIPTAN 5 MG TABLET Take 1-2 tablets by mouth as * TRAMADOL 50 MG TABLET Take 1-2 tablets by mouth nathalie* TRIAMCINOLONE ACETONIDE 0.1 %* Apply 1 application to affect* VALACYCLOVIR 500 MG TABLET TAKE 1 TABLET BY MOUTH DAILY X BLOOD SUGAR DIAGNOSTIC STRIPS Test blood sugar(s) 4 times d* X DIVALPROEX ER 500 MG TABLET,E* take 1 tablet by mouth daily X FLUCONAZOLE 150 MG TABLET 1 tablet today and repeat in * X OXYCODONE-ACETAMINOPHEN 5 MG-* Take 1 tablet by mouth three * Problem List As Of Date 10/22/2018 Noted Resolved ESOPHAGEAL REFLUX [K21.9] More... Unspecified asthma(493.90) [J45.909] 06/02/2017 More... 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 Unspecified vitamin D deficiency [E55.9] INVALID FOR*02/27/2013 GENITAL HERPES NEC [A60.00] INVALID FOR* URGE AND STRESS MIXED INCONTINENCE [N39.46] INVALID FOR* LACERATION -NOT COMPLICATED BREAST [S21.009A] INVALID FOR*02/27/2013 Diabetes (HCC) [E11.9] INVALID FOR* Enthesopathy of unspecified site [M77.9] INVALID FOR*02/27/2013 Adenopathy, Hilar [R59.0] INVALID FOR* Major depressive disorder, recurrent episode (H*INVALID FOR* Abnormal mammogram, unspecified [R92.8] INVALID FOR*06/02/2017 Wound, open, breast [S21.009A] INVALID FOR*02/27/2013 Benign neoplasm of skin of lower limb, includin*INVALID FOR*02/27/2013 Umbilical hernia without mention of obstruction*INVALID FOR*06/02/2017 Ventral hernia, unspecified, without mention of*INVALID FOR*06/02/2017 Anxiety [F41.9] INVALID FOR* Vitamin d deficiency [E55.9] INVALID FOR* Urge incontinence of urine [N39.41] INVALID FOR*06/02/2017 Pain of left lower leg [M79.662] INVALID FOR* Carpal tunnel syndrome of right wrist [G56.01] INVALID FOR*06/02/2017 Morbid obesity with BMI of 45.0-49.9, adult (HC* ABRAM (obstructive sleep apnea) [G47.33] INVALID FOR* More... Left carpal tunnel syndrome [G56.02] INVALID FOR*06/02/2017 Asthma with COPD with exacerbation (HCC) [J44.1*INVALID FOR* HTN (hypertension) [I10] INVALID FOR* Ganglion cyst of finger of right hand [M67.441] INVALID FOR* More... Other instructions from your clinician: Nutrition Goals: Keep Journal of diet to being to appointments Whey protein in skim milk Get adequate hydration Exercise goals: Move more between studying. Consider chair exercises on You Tube Work up to 150 minutes per week Titrating off Gabapentin: Gabapentin 600 mg currently taking 2 pills 3 times daily (2-2-2-) Decrease by 1 pill per day every 3 to 7 days (2-1-2, then 1-1-2 then 1-0-2 then 1-0-1, then 0-0-1 then stop) Prescriptions ordered this encounter Disp Refills Start End TRAMADOL 50 MG TABLET 120 * 2 10/31/2018 01/29/2019 Class: Print RX Route: ORAL Sig: Take 1-2 tablets by mouth every 6 hours as needed for up to 90 days. ONDANSETRON 4 MG DISINTEGRATING TABL* 12 t* 2 10/22/2018 Route: ORAL Sig: Take 1 tablet by mouth every 8 hours as needed. PREGABALIN 100 MG CAPSULE 90 c* 2 10/22/2018 01/20/2019 Class: Print RX Route: ORAL Sig: Take 1 capsule by mouth three times daily for 90 days. OXYCODONE-ACETAMINOPHEN 5 MG-325 MG * 21 t* 0 10/22/2018 11/01/2018 Class: Print RX Route: ORAL Sig: Take 1 tablet by mouth three times daily as needed for up to 7 days. Recurrent leg ulcer Medications Discontinued During This Encounter traMADol (ULTRAM) 50 mg tablet 120 * 2 09/01/2018 10/22/2018 Class: Print RX Route: ORAL Sig: Take 1-2 tablets by mouth every 6 hours as needed for up to 90 days. Disc: Reason for discontinue is not on file. ondansetron orally disintegrating (Z* 12 t* 2 08/16/2018 10/22/2018 Route: ORAL Sig: Take 1 tablet by mouth every 8 hours as needed. Disc: Reason for discontinue is not on file. pregabalin (LYRICA) 75 mg capsule 90 c* 0 09/27/2018 10/22/2018 Class: Print RX Route: ORAL Sig: Take 1 capsule by mouth three times daily for 30 days. As directed Disc: Reason for discontinue is not on file. insulin glargine (BASAGLAR KWIKPEN U* 5 Pen 5 08/16/2018 10/22/2018 Class: Med Update Route: SUBCUTANEOUS Sig: Inject 12 Units subcutaneously every morning. Disc: Reason for discontinue is not on file. oxyCODONE-acetaminophen (PERCOCET) 5* 21 t* 0 09/27/2018 10/22/2018 Class: Print RX Route: ORAL Sig: Take 1 tablet by mouth three times daily as needed for up to 7 days. Recurrent leg ulcer Disc: Reason for discontinue is not on file. Disposition: Return for November Weight loss SMA and as scheduled. Follow-up and Disposition History Recorded Encounter Status:Closed by TERRIE LOPEZ MD on 11/05/18 CNPN Observed: 2018 Status: COMPLETED Source: [place] 12:00 AM [facility] REPOSITORY Telephone (PHMEWO) EDEL LANG ([id number]) 1965 F Date Time Provider Department 10/18/18 MERARI (PHARMACIST)CHRIS During your visit today, we recorded the following information about you: RICHARD CLARK 2018 12:46 PM Signed Contacted patient in attempt to reschedule missed appointment on 10/18, LVM for patient with instructions to return PharmD call. Chris Howard PharmD, [facility] Primary Care Clinical Pharmacist [facility] RICHARD CLARK 10/26/2018 10:11 AM Signed Contacted patient in attempt to reschedule missed appointment on 10/18, LVM for patient with instructions to return PharmD call. 2nd attempt to reach patient Chris Howard PharmD, [facility] Primary Care Clinical Pharmacist [facility] Allergies As of Date: 2018 Noted Allergy Reaction NIA (FEXOFENADINE HCL) 01/25/2006 12 - Shortness of Breath ANCEF (CEFAZOLIN SODIUM) 01/25/2006 4 - Hives CLINDAMYCIN 01/05/2007 6 - Diarrhea duoderm [Other] 05/21/2007 Comments: severe burning pain at point of contact. No redness. ELAVIL (AMITRIPTYLINE) 04/27/2007 Comments: hallucinations MACROBID (NITROFURANTOIN MONOHYD/*05/15/2007 4 - Hives NORVASC (AMLODIPINE) 12/11/2008 7 - Swelling VANCOMYCIN 08/01/2018 7 - Swelling Comments: legs swell and turn red Date Reviewed: 09/27/2018 Reviewed by: Tiffany Martin LPN - Fully Assessed Reason for Visit: Missed Appointment [1304] Prescriptions as of 2018 Sig: COLLAGENASE CLOSTRIDIUM HISTO* Apply 1 application to affect* FLUCONAZOLE 150 MG TABLET 1 tablet today and repeat in * RIZATRIPTAN 5 MG TABLET Take 1-2 tablets by mouth as * X PREGABALIN 75 MG CAPSULE Take 1 capsule by mouth three* GABAPENTIN 600 MG TABLET Take 2 tablets by mouth three* PEN NEEDLE, DIABETIC 32 GAUGE* Use one needle for each dose.* BLOOD SUGAR DIAGNOSTIC STRIPS Test blood sugar(s) 4 times d* X TRAMADOL 50 MG TABLET Take 1-2 tablets by mouth nathalie* X ONDANSETRON 4 MG DISINTEGRATI* Take 1 tablet by mouth every * X INSULIN GLARGINE (U-100) 100 * Inject 12 Units subcutaneousl* GLIMEPIRIDE 2 MG TABLET TAKE 2 TABLETS BY MOUTH TWICE* BUPROPION XL 300 MG 24 HR TAB Take 300 mg by mouth once josé* BENZONATATE 100 MG CAPSULE Take 2 capsules by mouth thre* VALACYCLOVIR 500 MG TABLET TAKE 1 TABLET BY MOUTH DAILY PROMETHAZINE 25 MG TABLET Take 1 tablet by mouth every * ORPHENADRINE CITRATE ER 100 M* Take 1 tablet by mouth twice * LISINOPRIL 10 MG TABLET Take 1 tablet by mouth twice * FLUTICASONE 50 MCG/ACTUATION * Use 2 Sprays in each nostril * MUPIROCIN 2 % TOPICAL OINTMENT APPLY TO AFFECTED AREA ONCE D* NADOLOL 80 MG TABLET Take 2 tablets by mouth once * LIDOCAINE 4 % TOPICAL CREAM Apply thin layer to affected * OMEPRAZOLE 20 MG CAPSULE,MELINDA* TAKE 1 CAPSULE BY MOUTH DAILY BUSPIRONE 5 MG TABLET Take 15 mg by mouth twice josé* OXYBUTYNIN CHLORIDE ER 15 MG * TAKE 1 TABLET BY MOUTH ONCE D* DICYCLOMINE 20 MG TABLET Take 1 tablet by mouth three * DIVALPROEX ER 500 MG TABLET,E* take 1 tablet by mouth daily OMEPRAZOLE MAGNESIUM 20 MG TA* Take 1 tablet by mouth daily * Patient not taking: Reported on 07/03/2018 HYDROCORTISONE 2.5 % TOPICAL * 1 application by RECTAL route* LANCETS Test blood sugar(s) 3 times d* BENZOCAINE-MENTHOL 15 MG-2.6 * Take 1 Lozenge by mouth every* Patient not taking: Reported on 06/07/2018 DIAZEPAM 5 MG TABLET Take 10 mg by mouth once kala* TRIAMCINOLONE ACETONIDE 0.1 %* Apply 1 application to affect* MOMETASONE-FORMOTEROL HFA 100* Inhale 2 Puffs as instructed * ALBUTEROL SULFATE HFA 90 MCG/* Inhale 2 Puffs as instructed * CPAP Initiate CPAP @ 14 cm of wate* Patient not taking: Reported on 08/01/2018 COMPOUNDED PRESCRIPTION Nebulizer for home use. Diagn* QUETIAPINE 300 MG TABLET Take 1 tablet by mouth daily * Patient taking differently: Take 300 mg by mouth daily at* Problem List As Of Date 2018 Noted Resolved ESOPHAGEAL REFLUX [K21.9] More... Unspecified asthma(493.90) [J45.909] 06/02/2017 More... 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 Unspecified vitamin D deficiency [E55.9] INVALID FOR*02/27/2013 GENITAL HERPES NEC [A60.00] INVALID FOR* URGE AND STRESS MIXED INCONTINENCE [N39.46] INVALID FOR* LACERATION -NOT COMPLICATED BREAST [S21.009A] INVALID FOR*02/27/2013 Diabetes (HCC) [E11.9] INVALID FOR* Enthesopathy of unspecified site [M77.9] INVALID FOR*02/27/2013 Adenopathy, Hilar [R59.0] INVALID FOR* Major depressive disorder, recurrent episode (H*INVALID FOR* Abnormal mammogram, unspecified [R92.8] INVALID FOR*06/02/2017 Wound, open, breast [S21.009A] INVALID FOR*02/27/2013 Benign neoplasm of skin of lower limb, includin*INVALID FOR*02/27/2013 Umbilical hernia without mention of obstruction*INVALID FOR*06/02/2017 Ventral hernia, unspecified, without mention of*INVALID FOR*06/02/2017 Anxiety [F41.9] INVALID FOR* Vitamin d deficiency [E55.9] INVALID FOR* Urge incontinence of urine [N39.41] INVALID FOR*06/02/2017 Pain of left lower leg [M79.662] INVALID FOR* Carpal tunnel syndrome of right wrist [G56.01] INVALID FOR*06/02/2017 Morbid obesity with BMI of 45.0-49.9, adult (HC* ABRAM (obstructive sleep apnea) [G47.33] INVALID FOR* More... Left carpal tunnel syndrome [G56.02] INVALID FOR*06/02/2017 Asthma with COPD with exacerbation (HCC) [J44.1*INVALID FOR* HTN (hypertension) [I10] INVALID FOR* Ganglion cyst of finger of right hand [M67.441] INVALID FOR* More... Encounter Status:Closed by MERARI (PHARMACIST)CHRIS on 10/18/18 ENDOCRINOLOGY VISIT Observed: 10/17/2018 Status: F Source: [place] REPORT 1:56 PM [facility] REPOSITORY [facility] [address] [place] [address] [address] [place] [address] OFFICE VISIT Date of Service: 10/16/18 MR#: [id number] Acct: [id number] Name: EDEL LANG Rep #: [id number] : 1965 Provider: Danyelle Weber NP Age/Sex: 52/F Location[place] [facility] [place] Status: Signed HPI History of present illness HPI History of present illness Edel Lang is a 52 year old female who presents for follow up of diabetes type 2. Diagnosed approx 24 years ago at age 28. Started on Basaglar at her initial visit here. Currently on 20 units daily. Pt denies difficulty with injections or self monitoring of BG. Denies any signs of infection or irritation at site of injections. Reports taking insulin as directed States BG are remaining high since last visit and now she states she is even getting BG in the high 300. Did not bring her meter but states she is very concerned. (She had BG in the 200 range when first started on insulin) Feels she is doing well with her diet. Has had stress with her son illness, in family and job stress . Also hurt her back last week and had to call ambulance. History Reports A1c historically in the 6 range but recently in the hospital with resp illness and leg wound as well as HTN. Was given sliding scale insulin three times daily during hospital stay due to elevated readings but returned home on regular medications. Leg wound leg lower extremity below knee remains open with . Reports is now on antibiotics. At time of visit: -Pt denies symptoms of hypertensive emergency (CP,SOB,AG, or blurred vision) and hypotension(dizziness or lightheadedness) -Pt denies symptoms of hypoglycemia ( sweaty, confusion, anxiety, tremor, hunger, palpitations) and hyperglycemia ( polydipsia, polyuria) -Pt denies potential medication adverse effect. Hypoglycemia Aware of hypoglycemia: When awake Able to self treat low BG: Yes Frequent low Bloo sugar: No Has supply of glucagon: Yes SMBG No meter for review. Diet 3 meals Follows diabetic diet according to self report No carb counting General: Alert, Oriented x3, No apparent distress HEENT: Atraumatic, EOMI, Normocephalic Oral: Moist Mucosa Neck: Supple, Lungs: Clear to auscultation, Normal air movement, No rhonchi, No wheeze, No rales Cardiovascular: Regular rate, Regular Rhythm, Normal S1, Normal S2, No murmurs Abdomen: Soft, Non Tender, Non-Distended, No Hepato-splenomegaly Extremities: Edema - non-pitting Skin: Ulcer/ Wound - on left tibia, Not observed. Psych/Mental Status: Normal Affect, Appropriate Type: type 2, insulin-requiring Glucose control symptoms: Reports high fasting glucose and high post-meal glucose Weight and fatigue symptoms: Reports weight gain; denies snoring Cardiopulmonary symptoms: Denies chest pain at rest, dyspnea on exertion, lightheadedness or myalgias GI symptoms: Reports nausea/dyspepsia; denies constipation, diarrhea or vomiting Other symptoms: Denies blurry vision or change in vision Pertinent visit history: Denies recent visit to ER Intake Vital Signs10/16/18 Body Mass Index (BMI) 55.0 10/16/18 Height 5 ft 5 in Intake Visit Reasons: Diabetes Mellitus Type 2 Chief Complaint: diabetes type 2 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 Required: No Accompanied by: Self Allergies vancomycin Allergy (Severe, Verified 10/16/18 14:31) BURNING RED RASH ON LEGGS cefazolin sodium [From Ancef] Allergy (Verified 10/16/18 14:31) Hives Penicillins Allergy (Verified 10/16/18 14:31) Hives sumatriptan [From Imitrex] Allergy (Verified 10/16/18 14:31) Shortness of breath Medications Buspirone HCl 20 mg PO TID PRN PRN 03/05/17 [History Confirmed 10/16/18] Gabapentin [Neurontin] 1,200 mg PO TID 03/05/17 [History Confirmed 10/16/18] Nadolol [Corgard (Beta Torin)] 160 mg PO DAILY 03/05/17 [History Confirmed 10/16/18] Oxybutynin Chloride [Ditropan Xl] 15 mg PO QHS 03/05/17 [History Confirmed 10/16/18] Quetiapine Fumarate [Quetiapine Fumarate ER] 300 mg PO QHS 03/05/17 [History Confirmed 10/16/18] buPROPion XL [Wellbutrin Xl] 450 mg PO DAILY 03/05/17 [History Confirmed 10/16/18] Lisinopril 20 mg PO QHS 03/20/17 [History Confirmed 10/16/18] divalproex 125 mg capsule,delayed release sprinkle 500 mg PO DAILY 02/18/18 [History Confirmed 10/16/18] omeprazole 10 mg capsule,delayed release 10 mg PO DAILY 02/18/18 [History Confirmed 10/16/18] valacyclovir 1 gram tablet 1,000 mg PO QDAY 02/18/18 [History Confirmed 10/16/18] Diazepam [Valium] 10 mg PO BID PRN PRN 03/11/18 [History Confirmed 10/16/18] Orphenadrine [Norflex] 100 mg PO BID PRN 03/11/18 [History Confirmed 10/16/18] traMADol [Ultram] 100 mg PO Q6H PRN PRN 03/11/18 [History Confirmed 10/16/18] Albuterol Inhaler [Ventolin Hfa] 2 puff INHALATION Q4H PRN PRN 05/29/18 [History Confirmed 10/16/18] glimepiride 2 mg tablet 4 mg PO BID tab 09/20/18 [History Confirmed 10/16/18] metformin 500 mg tablet 500 mg PO BID #60 tab 09/25/18 [Rx Confirmed 10/16/18] Insulin Glargine,Hum.rec.anlog [Daytonagljeremy Rosales U-100 Insulin] 20 unit SUBCUT .q am 10/07/18 [History Confirmed 10/16/18] Rizatriptan Benzoate [Rizatriptan] 5 mg PO DAILY PRN 10/07/18 [History Confirmed 10/16/18] Clindamycin HCl [Cleocin] 300 mg PO Q6H #40 cap 10/14/18 [Rx Confirmed 10/16/18] Mometasone Furoate [Nasonex] 1 spray NASAL DAILY 10/14/18 [History Confirmed 10/16/18] Pregabalin [Lyrica] 75 mg PO TID 10/14/18 [History Confirmed 10/16/18] Nurse's Note: blood sugars : low : 220 high : 491 PFSH Medical History Arthritis (Acute) Asthma (Acute) Back pain (Acute) COPD (chronic obstructive pulmonary disease) (Acute) Diabetes (Acute) Fatigue (Acute) Hemorrhoids (Acute) Hx of hysterectomy (Acute) Knee pain (Acute) Migraines (Acute) HTN (hypertension) (Chronic) Surgical History H/O hernia repair (Acute) Hx of section (Acute) Kidney stone (Acute) knee scope (Acute) Family History Other Hypertension Kidney disease Social History Smoking Status: Never smoker ROS Const Constitutional: Positive for chills, fatigue and change in appetite; no anorexia, body ache, fever(s), frequent falls, decreased energy, malaise, night sweats, weakness, weight change, sleep problems, abnormal sleep pattern, other, headache(s), snoring or excessive sweating Eyes Eyes: No blurry vision, change in vision, double vision, discharge, dry eyes, bulging eyes, floaters, visual disturbances, eye pain, light sensitivity, spots in vision, tunnel vision or other ENT ENT: No abnormal hearing, ear pain, ear discharge, ear pressure, hearing loss, tinnitus, dizziness/vertigo, balance problems, nosebleed/epistaxis, nasal congestion, nasal obstruction, nose pain, sinus pressure, sinus pain, nasal discharge, post nasal drip, headache(s), facial pain, dental pain, dry mouth, bad breath, hoarseness, lip swelling, mouth lesions, mouth pain, sore throat, tongue swelling, throat swelling, other, difficulty swallowing or neck pain Resp Respiratory: Positive for wheezing; no cough, change in phlegm color, chest congestion, excessive phlegm production, hemoptysis, pain on inspiration, shortness of breath, pain with cough, snoring, stridor or other Cardio Cardiology: Positive for generalized swelling; no chest pain at rest, chest pain with exertion, leg pain with exertion, excessive sweating, shortness of breath, dyspnea on exertion, irregular heart rhythm, lightheadedness, orthopnea, radiating jaw, neck or arm pain, fast heart rate, slow heart rate, palpitations or other Gastro GI: Positive for nausea/dyspepsia; no abdominal pain, belching, bloating, change in bowel habits, change in stool character, coffee ground emesis, constipation, cramping, diarrhea, heartburn, difficulty swallowing, feeling full early, excessive flatus, incontinent of stools, Vomiting blood/hematemesis, blood in stool, loose stools, Black,tarry stools, pain with swallowing, vomiting or other Genitourinary-Female: No difficulty urinating, burning urination, painful urination, urinary incontinence, urinary frequency, urinary urgency, urinary hesitancy, urinary retention, blood in urine, Frequent nighttime urination/ nocturia, post void dribbling, suprapubic fullness, side pain, sexual problems, genital lesions, genital itching, hot flashes, abnormal periods, abnormal vaginal bleeding, absent period, painful periods, light periods, heavy periods, difficulty getting , painful intercourse, pelvic pain, vaginal dryness, vaginal odor, Vaginal Itching or other Musc Musculoskeletal: No abnormal walking, joint pain, back pain, deformity, joint swelling, limited range of motion, loss of height, muscle cramps, muscle weakness, decreased muscle mass, body aches, neck pain, numbness, radiating pain into limb, stiffness, tingling or other Skin Skin: Positive for wounds; no acne, hair loss, change in hair, nail changes, boil, change in skin color, dry skin, redness, excessive hair growth, yellowing of the skin, lesions, itching, rash, skin pain, skin ulcer, sores, skin swelling or other Breast Breast: No other Neuro Neurology: No frequent falls, weakness, visual disturbances, abnormal hearing, headache(s), abnormal walking, numbness or tingling Psych Psychiatric: No abnormal sleep pattern, Positive for change in appetite Endo Endocrine: Positive for fatigue; no other or excessive sweating Aller/Imm Allergy/Immunologic: Positive for wheezing; no lip swelling, tongue swelling, throat swelling or itchy eyes Assessment AND Plan Problems 1. Diabetes mellitus type 2, uncontrolled, with complications E11.8; E11.65 Plan Reports BG runing higher last several days. Will give patient sliding scale correction using humalog 1-50. Also given increase basaglar adding 3 additional units today and also 3 additional units in 3 days if BG above 150. After that add 2 units every 3 days as long as all BG above 150. Enc to monitor diet Check BG before each meal and 2 hours after meals. RTC as directed. Plan Detail Additional Comments 1. Please schedule follow up in 1 month 2. Lab work one week before appointment. 3. Discussed importance of regular exercise and recommend starting or continuing a regular exercise program for good health. 4. The patient was encouraged to lose weight for good health 5. The importance of monitoring blood sugar regularly was reviewed. 6. The importance of monitoring the HBA1c level regularly was reviewed. 7. The importance of prper foot care and regularly checking feet to prevent sores and loss of limbs was reviewed. 8. The importance of keeping BP at or below 130/80 to prevent stroke, heart attacks, kidney failure, blindness was reviewed. Spent approximately 30 minutes with patient with over 50% of time spent in discussion and counseling regarding medication adjustment, symptoms and treatment of hypoglycemia, diet adherence, and checking BG before driving. Coding Level of Care Code Off vis,est,level 3 Diagnoses Diabetes mellitus type 2, uncontrolled, with complications E11.8; E11.65 10/17/18 9211 <Electronically signed by Danyelle J Shook TRANSFORMATION SPECIALIST-C> Date Danyelle Weber TRANSFORMATION SPECIALIST-C Cosigner Signature: Date (if applicable) CC: VENOUS DUPLEX LOWER Observed: 10/15/2018 Status: F Source: [place] [facility]TREM[facility] 6:16 PM [facility] REPOSITORY [facility] Cardiovascular Services [address] [place] [address] Venous Duplex US, Unilateral 10/15/18 1127 MR#: [id number] Acct: [id number] Name: EDEL LANG Rep #: [id number] : 1965 52 From: Dontrell Batres MD Attending Dr: Marek Bailey, Status: REG CLI Ordering Dr: Marek Bailey DO Date: 10/15/18 Location: [facility] Sex: F C Admitted: Reason For Study: Elevated D-Dimer Procedure LEFT Exam performed in department. GSV is normal. A preliminary report was called and/or faxed CFV is compressible, spontaneous, phasic, to Dr. Lopez. competent, and demonstrates normal augmentation. FV is compressible, spontaneous, phasic, competent and demonstrates normal augmentation. POP V is compressible, spontaneous, phasic, competent and demonstrates normal augmentation. T/P Trunk is compressible. PTV is compressible. LT PerV is compressible. <> Interpretation Summary There is no evidence of left lower extremity deep vein thrombosis. Left greater saphenous vein appears patent and compressible segmentally. Ordering Physician: Marek Bailey Referring Physician: Terrie Lopez Performed By: Siomara Ruth, RDCS, RVT 10/15/181815 Date Dontrell Batres MD CC: Marek Bailey DO; Terrie Lopez MD Date Dictated: 10/15/18 1127 Date Transcribed: 10/15/181815 [employer] Sequestration Plant Operator: Signed EMERGENCY DEPARTMENT Observed: 10/14/2018 Status: F Source: [place] SUMMARY 4:33 PM [facility] REPOSITORY [facility] Medical Records Department [address] [place] [address] Emergency Department Summary 10/14/18 1430 MR#: [id number] Acct: [id number] Name: EDEL LANG Rep #: [id number] : 1965 52 From: Marek Bailey DO PCP: Terrie Lopez MD Status: DEP ER - ER Visit Summary Date of Service: 10/14/18 Chief Complaint: Left leg wound History of Present Illness: The patient is a 52 F who presents with left leg wound that began draining some purulent drainage over the last few days. Patient states her blood sugars have also been elevated over the past few days. Patient admits to subjective chills but did not take her temperature. Patient states she has pain over the wound that radiates into her calf. Patient denies any paresthesias or weakness. Physical Examination: Vital signs are stable. Patient is afebrile. Patient is in no acute distress. Oral mucosa is pink and moist. Neck is supple. Trachea is midline. There is no JVD noted. Heart was regular rate and rhythm. Lungs are clear and equal bilaterally. Abdomen is soft. Bowel sounds are normal. Skin is warm and dry. There is an open wound of the anterior aspect of the left lower leg. There is some mild purulent drainage noted. There is some mild tenderness over the calf and posterior knee. Pedal pulses are equal bilateral. There are no sensory deficits noted. The remaining physical exam is within normal limits. Test Results: CBC, basic metabolic profile, and urinalysis were obtained and were essentially within normal limits. D-dimer was obtained and was elevated. Patient was given a dose of Lovenox here. X-rays of the tib-fib were obtained. There is no acute process noted. Wound culture was obtained and is pending Emergency Department Course and Treatment: Patient was given a prescription for clindamycin. Patient was instructed to use bacitracin ointment to the area. Patient was instructed to follow-up with her primary care physician in 7-10 days. Patient was instructed to return tomorrow as an outpatient for follow-up venous duplex of her left leg. Patient understood and was agreeable with the plan. All questions were answered. Disposition: Discharge home Impression: 1. Open wound left leg 2. Left leg pain This note was generated with [employer] dictation software. It may contain incorrect words, spelling, and punctuation that were not noted in review of the chart prior to signing ED Disposition - Plan for ED Patient: Disposition: Home or Assisted Living Chief Complaint: Wound Diagnosis: Open wound of left lower leg Instructions: ED Wound Care Prescriptions: Clindamycin HCl [Cleocin] 300 mg PO Q6H #40 cap Referrals: Terrie Lopez MD [Primary Care Provider] - What to do if you have Problems For any increased pain, shortness of breath, bleeding, nausea or vomiting, chest pain, or any unexpected problems, contact your Primary Care Provider. Call [facility] ([phone]) or report to the closest Emergency Room. Call 911 if necessary. 10/14/18 7753 <Electronically signed by Marek Bailey DO> Date Marek Bailey DO Cosigner Signature (If Indicated): Date CC: Terrie Lopez MD URINALYSIS, COMPLETE Collected: 10/14/2018 Status: F Source: [place] 3:55 PM [facility] REPOSITORY Order Comment: Order Date: 10/14/18 How was Urine Obtained? MANAGER PRODUCT MARKETING TO SPECIFY TYPE CODE TESTS RESULT OUT OF RANGE REFERENCE UNITS LAB L400.3000 Yellow COLOR Normal Yellow LAB L400.3050 Clear Normal CLARITY Sl. Cloudy LAB L400.3200 Normal mg/dl Normal GLUCOSE, UR Normal LAB L400.3300 Negative mg/dL Normal BILIRUBIN URINE Negative LAB L400.3400 Negative mg/dl Normal KETONE UR Negative LAB L400.3465 1.002-1.030 Normal SP.GR. DIPSTX 1.020 LAB L400.3550 5.0 - 8.0 pH UR Normal 6.0 LAB L400.3600 Negative mg/dl PROT Normal DIPSTX Negative LAB L400.3700 Normal mg/dl High 4 UROBILI LAB L400.3750 Negative Normal NITRITE UR Negative LAB L400.3780 Negative /ul High 10 OCCULT BLOOD-UR LAB L400.3800 Negative /ul LEUK Normal ESTERASE Negative LAB L400.4050 0-5 /hpf WBC Normal 0-5 SEEN LAB L400.4100 0-5 /hpf Normal RBC-UA 0-5 SEEN LAB L400.4150 5-10 /hpf SQUAM Normal EPI 0-5 SEEN LAB L400.4300 None Seen /hpf 0 Normal BACTERIA SEEN LAB L400.4350 <or=2+ /hpf Normal MUCUS, URINE RARE LAB L400.5200 None Seen /hpf 1+ Normal YEAST-URINE Performed By: #### L400.0001 #### [facility] [address] [place], [place], [address] BASIC METABOLIC Collected: 10/14/2018 Status: F Source: [place] PROFILE (BMP) 3:30 PM [facility] REPOSITORY TYPE CODE TESTS RESULT OUT OF RANGE REFERENCE UNITS LAB L501.0100 74-106 mg/dL High GLU 179 Result Comment: Fasting Glucose result greater than or equal to 126 mg/dL suggests DIABETES MELLITUS per A.D.A. criteria. Please note revised GLUCOSE reference range effective 2017. LAB L501.1000 7-18 mg/dL Normal BUN 14 LAB L501.1100 0.55-1.02 mg/dL Normal CREAT,SERUM 0.73 Result Comment: The validity of the calculated GFR AND GFRAA in patients over 70 years has not been determined. Clinical correlation is essential. LAB L501.1110 >60 mL/min Normal EST GFR 88 Result Comment: Non- GFR Calc LAB L501.1115 >60 mL/min Normal EST GFR - AA 107 Result Comment: GFR Calc LAB L501.1255 ml/min Normal Estimated CRCL 79.28 LAB L501.1300 10-20 RATIO Normal BUN/CRE 19.3 LAB L501.2200 8.5-10 mg/dL Low .1 CA 8.4 LAB L501.5300 136-14 mmol/L Normal 5 NA 138 LAB L501.5600 3.5-5. mmol/L Normal 1 K 4.2 LAB L501.5900 98-107 mmol/L Normal CL 103 LAB L501.6100 21.0-3 mmol/L Normal 2.0 CO2 29.0 LAB L501.6200 5-15 Normal GAP 6 Performed By: #### L500.2500 #### [facility] [address] [place], [place], [address] CBC W/DIFF, AUTOMATED Collected: 10/14/2018 Status: F Source: [place] 2:52 PM [facility] REPOSITORY TYPE CODE TESTS RESULT OUT OF RANGE REFERENCE UNITS LAB L100.1000 4.4-11.0 K/mm3 Normal WBC 4.5 LAB L100.1200 4.2-5.4 M/mm3 Normal RBC 4.50 LAB L100.1300 12.0-15.0 g/dl Low HGB 11.6 LAB L100.1400 37-47 % Normal HCT 37.9 LAB L100.1500 81-99 fL Normal MCV 84.2 LAB L100.1600 27.0-32.0 pg Low MCH 25.8 LAB L100.1700 32-36 g/gl Low MCHC 30.6 LAB L100.1810 11.6-14.6 % High RDW CV 14.9 LAB L100.1820 35.1-43.9 fl High RDW SD 45.9 LAB L100.1900 150-450 K/mm3 Low PLT 133 LAB L100.2000 6.2-12.0 fl Normal MPV 10.6 LAB L100.2100 47-70 % High NEUT% 72.8 LAB L100.2200 19-41 % Normal LY% 19.0 LAB L100.2300 0-10 % Normal MONO% 8.2 LAB L100.2400 0-5 % Normal EO% 0.0 LAB L100.2500 0-1 % Normal BASO% 0.0 LAB L100.2550 0.0-0.9 % Normal IM GRAN % 0.000 Result Comment: IG% - Immature Granulocytes (promyelocytes, myelocytes and metamyelocytes) > 1% indicates that a LEFT SHIFT is Present. LAB L100.2620 2.0-7.7 X10 3/uL Normal Absolute Neut 3.3 LAB L100.2720 0.83-4.51 X10 3/ul Normal Absolute Lymph 0.86 Performed By: #### L100.0100 #### [facility] [address] [place], [address] D-DIMER QUANTITATIVE Collected: 10/14/2018 Status: F Source: [place] (DVT/PE) 2:52 PM [facility] REPOSITORY TYPE CODE TESTS RESULT OUT OF RANGE REFERENCE UNITS LAB L300.8000 0.27-0.49 FEU/ug/m High alert D-DIMER 0.59 QUANT Result Comment: RESULTS CALLED TO [facility] BATTERY HAND 10/14/18 1528 Lamont Graves. REPORT READ BACK BY SAME . D-Dimer ELEVATED (>0.49): Additional studies and clinical assessments are indicated to conclude diagnosis of: Deep Vein Thrombosis (DVT) or Pulmonary Embolism (PE) Performed By: #### L300.8000 #### [facility] [address] [place], [address] Observed: 10/14/2018 Status: F Source: [place] CULTURE, WOUND 2:52 PM [facility] REPOSITORY Order Date: 10/14/18 Gram Stain Gram Stain 1+ White Blood Cells 3+ Gram positive rods 1+ Gram positive cocci Wound Culture #1 There are no CLSI standards for interpretation of this Drug/Organism combination. ORGANISM 1: Turicella otitidis Amount Growth 3+ ORGANISM 2: Klebsiella oxytoca Amount Growth Rare Klebsiella oxytoca: REACTION Amoxacillin/Clavulanic Acid $ <=2 S Ampicillin $ >=32 R Ampicillin/Sulbactam $ 4 S Cefazolin $ <=4 S Cefepime $ <=1 S Ceftriaxone $ <=1 S Ciprofloxacin $ <=0.25 S Ertapenim $$$ <=0.5 S Gentamicin $ <=1 S Imipenem *NF <=0.25 S Levofloxacin $ <=0.12 S Piperacillin/Tazobactam $$ <=4 S Tobramycin $ <=1 S Trimethoprim/Sulfametho $ <=20 S (NF) indicates non-formulary drug at [facility]. Approval by Infectious Disease Specialist required before non-formulary drugs may be ordered and/or dispensed. Performed By: #### M100.1400 #### [facility] [address] [place], [address] TIBIA AND FIBULA Observed: 10/14/2018 Status: F Source: [place] 2 VIEWS 2:29 PM [facility] REPOSITORY [facility] Imaging Services [address] [place] [address] Tibia AND Fibula 2 Views MR#: [id number] Acct: [id number] Name: EDEL LANG Rep #: [id number] : 1965 F 52 From: Oliverio John MD PCP: Terrie Lopez MD Status: REG ER Study: Tibia AND Fibula 2 Views Date of Exam: 10/14/18 Exam# [id number] Ordering Dr: Marek Bailey DO STUDY: X-RAY - LEFT TIBIA AND FIBULA REASON FOR EXAM: Female, 52 years old. Infection. TECHNIQUE: 2 view(s) of the tibia and fibula were obtained. COMPARISON: 05/29/2018. FINDINGS: No change. Stable appearance of extensive soft tissue calcifications of the anteromedial calf. Stable soft tissues of the anterior calf with a chronic defect of the anterior aspect of the mid lower leg. No fractures. No dislocations. No focal destructive lesions. Degenerative changes of the knee. RAD/Tibia AND Fibula 2 Views IMPRESSION: No change and no acute abnormality. Electronically Signed: Oliverio John MD at 15:54 EST , Service support , CC: Marek Bailey DO; Terrie Lopez MD Carbon Sequestration Plant Operator: Signed PROGRESS Observed: 10/08/2018 Status: COMPLETED Source: [place] 11:50 PM [facility] REPOSITORY HNO ID: [id number] Author: Terrie Lopez Service: (none) Author Type: Physician Type: Progress Notes Filed: 10/09/2018 12:00 AM Note Text: This note was created using NetSanityriter. Subjective Edel Lang is a 52 year old female. See below Review of Systems Skin: Positive for wound (left perera). See other notes Objective BP 138/92 Pulse 84 Temp 37.3 ?C (99.1 ?F) (Tympanic) Resp 24 Wt (!) 147.9 kg (326 lb) BMI 54.25 kg/m? Physical Exam Skin: Assessment and plan in other section EMERGENCY DEPARTMENT Observed: 10/07/2018 Status: F Source: [place] SUMMARY 3:44 PM [facility] REPOSITORY [facility] Medical Records Department [address] [place] [id number] Emergency Department Summary 10/07/18 1040 MR#: [id number] Acct: [id number] Name: EDEL LANG Rep #: [id number] : 1965 52 From: Alize Hidalgo MD PCP: Terrie Lopez MD Status: DEP ER - ER Visit Summary Date of Service: 10/07/18 Chief Complaint: [] Right lumbar back pain after lifting someone off floor History of Present Illness: The patient is a 52 F [] helping family member who had slid to the floor get up she is to strain her right back she has history of lumbar disc disease is having a pain to the back no numbness weakness paresthesias lower extremity no abdominal pain no trauma no bowel or bladder complaints she was fine before all the above Physical Examination: [] 125/82 General, no distress resting comfortably HEENT is generally unremarkable The neck is supple no adenopathy Cardiovascular, regular rate and rhythm Lungs, clear bilateral Abdomen, soft nontender Extremities, no clubbing cyanosis or edema, the back there is vague pain to the left paralumbar back there is no midline pain she is able to stand and walk she can heel raise toe raise knee bend and walk around the room without difficulty she indicates she had this before Neurologic, awake alert answering questions appropriately moving all 4 extremities Test Results: [] Emergency Department Course and Treatment: [] Indicates she has pain medications at home that she is used before for this condition that has recurred in the past, she at this time was treated with Toradol IM and follow-up with her doctors return for change in symptoms she is comfortable with this plan Treatment Plan: [] Disposition: [] Home stable Impression: [] Recurrent lumbar back pain after lifting This note was generated with [employer]So[employer] software. It may contain incorrect words, spelling, and punctuation that were not noted in review of the chart prior to signing ED Disposition - Plan for ED Patient: Chief Complaint: Back Referrals: Terrie Lopez MD [Primary Care Provider] - What to do if you have Problems For any increased pain, shortness of breath, bleeding, nausea or vomiting, chest pain, or any unexpected problems, contact your Primary Care Provider. Call [facility] ([phone]) or report to the closest Emergency Room. Call 911 if necessary. 10/07/18 1544 <Electronically signed by Alize Hidalgo MD> Date Alize Hidalgo MD Cosigner Signature (If Indicated): Date CC: Terrie Lopez MD DISCHARGE INSTRUCTION Observed: 10/07/2018 Status: F Source: [place] 10:42 AM [facility] REPOSITORY [facility] Medical Records Department [address] [place] [address] Discharge Instruction 10/07/18 1041 MR#: [id number] Acct: [id number] Name: EDEL LANG Rep #: [id number] : 1965 52 From: Alize Hidalgo MD PCP: Terrie Lopez MD Status: PRE ER ED Disposition - Plan for ED Patient: Chief Complaint: Back Instructions: ED Spasm Back No Trauma Referrals: Terrie Lopez MD [Primary Care Provider] - What to do if you have Problems For any increased pain, shortness of breath, bleeding, nausea or vomiting, chest pain, or any unexpected problems, contact your Primary Care Provider. Call [facility] ([phone]) or report to the closest Emergency Room. Call 911 if necessary. 10/07/18 1042 <Electronically signed by Alize Hidalgo MD> Date Alize Hidalgo MD Cosigner Signature (If Indicated): Date CC: Terrie Lopez MD PROGRESS Observed: 10/05/2018 Status: COMPLETED Source: [place] 8:48 AM [facility] [place] REPOSITORY HNO ID: [id number] Author: Krystal Mensah Cma Service: (none) Author Type: (none) Type: Progress Notes Filed: 10/05/2018 8:50 AM Note Text: Letter mailed to patient. PROGRESS Observed: 10/03/2018 Status: COMPLETED Source: [place] 11:01 AM [facility] REPOSITORY HNO ID: [id number] Author: Krystal Mensah Cma Service: (none) Author Type: (none) Type: Progress Notes Filed: 10/05/2018 8:50 AM Note Text: [facility] CARE GAP REGISTRY DOCUMENTATION (OUTSIDE TEAMLET) Provider Action/FYI: Please file labs so none are missed PSR Action/FYI: Patient has upcoming appointment - mail letter to remind of lab work due Pend labs (so all are done together and none are missed) Send dm eye letter Patient identified by name and date of . Last BP/Labs: Blood Pressure: Last 3 Encounter BP Readings: Date: BP: 09/27/2018 138/92 08/16/2018 136/78 08/01/2018 122/84 Lipids: Cholesterol, Total (mg/dL) Date Value 09/28/2017 113 07/29/2014 140 HDL Cholesterol (mg/dL) Date Value 09/28/2017 31 07/29/2014 52 LDL Cholesterol (mg/dL) Date Value 09/28/2017 59 07/29/2014 74 Triglyceride (mg/dL) Date Value 09/28/2017 114 07/29/2014 70 HGB A1C: Lab Results Component Value Date HBA1C 9.1 07/03/2018 HBA1C 7.6 03/01/2018 HBA1C 7.0 09/28/2017 HBA1C 7.4 05/11/2017 TSH: TSH (uU/mL) Date Value 05/12/2015 0.623 09/24/2014 0.907 ) ? Patient has the following care gap registry disease diagnosis:Asthma ? DM ? HTN ? Patient has the following open care gaps: Health Maintenance Due: BP CONTROLLED (<130/80) due on 1981 MAMMOGRAM due on 01/02/2014 DIABETIC FOOT EXAM due on 04/22/2015 DILATED RETINAL EXAM due on 12/10/2015 URINE ALBUMIN:CREATININE RATIO due on 05/11/2018 - order pending HBA1C due on 10/03/2018 - order pending LDL CHOLESTEROL due on 09/28/2018 - order pending ? Last office visit: 09/27/2018 ? Future office visit:follow up appointment already scheduled. Mail appointment/lab reminder and DM retinal letters/release Krystal BRUNO Observed: 10/03/2018 Status: COMPLETED Source: [place] 12:00 AM [facility] [place] REPOSITORY Patient Outreach (INTMWS) EDEL LANG ([id number]) 1965 F Date Time Provider Department 10/03/18 KRYSTAL MENSAH ([facility]) INTM[facility] During your visit today, we recorded the following information about you: Krystal Mensah [facility] 10/05/2018 8:50 AM Signed [facility] CARE GAP REGISTRY DOCUMENTATION (OUTSIDE TEAMLET) Provider Action/FYI: Please file labs so none are missed PSR Action/FYI: Patient has upcoming appointment - mail letter to remind of lab work due Pend labs (so all are done together and none are missed) Send dm eye letter Patient identified by name and date of . Last BP/Labs: Blood Pressure: Last 3 Encounter BP Readings: Date: BP: 09/27/2018 138/92 08/16/2018 136/78 08/01/2018 122/84 Lipids: Cholesterol, Total (mg/dL) Date Value 09/28/2017 113 07/29/2014 140 HDL Cholesterol (mg/dL) Date Value 09/28/2017 31 07/29/2014 52 LDL Cholesterol (mg/dL) Date Value 09/28/2017 59 07/29/2014 74 Triglyceride (mg/dL) Date Value 09/28/2017 114 07/29/2014 70 HGB A1C: Lab Results Component Value Date HBA1C 9.1 07/03/2018 HBA1C 7.6 03/01/2018 HBA1C 7.0 09/28/2017 HBA1C 7.4 05/11/2017 TSH: TSH (uU/mL) Date Value 05/12/2015 0.623 09/24/2014 0.907 ) ? Patient has the following care gap registry disease diagnosis:Asthma ? DM ? HTN ? Patient has the following open care gaps: Health Maintenance Due: BP CONTROLLED (<130/80) due on 1981 MAMMOGRAM due on 01/02/2014 DIABETIC FOOT EXAM due on 04/22/2015 DILATED RETINAL EXAM due on 12/10/2015 URINE ALBUMIN:CREATININE RATIO due on 05/11/2018 - order pending HBA1C due on 10/03/2018 - order pending LDL CHOLESTEROL due on 09/28/2018 - order pending ? Last office visit: 09/27/2018 ? Future office visit:follow up appointment already scheduled. Mail appointment/lab reminder and DM retinal letters/release Krystal Mensah Commercial Account Manager Krystal Mensah Commercial Account Manager 10/05/2018 8:50 AM Signed Letter mailed to patient. Allergies As of Date: 10/03/2018 Noted Allergy Reaction NIA (FEXOFENADINE HCL) 01/25/2006 12 - Shortness of Breath ANCEF (CEFAZOLIN SODIUM) 01/25/2006 4 - Hives CLINDAMYCIN 01/05/2007 6 - Diarrhea duoderm [Other] 05/21/2007 Comments: severe burning pain at point of contact. No redness. ELAVIL (AMITRIPTYLINE) 04/27/2007 Comments: hallucinations MACROBID (NITROFURANTOIN MONOHYD/*05/15/2007 4 - Hives NORVASC (AMLODIPINE) 12/11/2008 7 - Swelling VANCOMYCIN 08/01/2018 7 - Swelling Comments: legs swell and turn red Date Reviewed: 09/27/2018 Reviewed by: Tiffany Martin LPN - Fully Assessed Reason for Visit: PHMA/Care Gap Outreach [3605] Primary Visit Diagnosis:Type 2 diabetes mellitus without complication, without long-term current use of insulin (HCC) [E11.9] Other Visit Diagnosis:Essential hypertension [I10] Order(s):HGB A1C [MBWFU0J] Order #: [id number] FUTURE BASIC METABOLIC PNL [SQBMP] Order #: [id number] FUTURE LIPID PANEL BASIC [SQLIPB] Order #: [id number] FUTURE ALBUMIN/CREAT RATIO RND UR [SQUACR] Order #: [id number] FUTURE Prescriptions as of 10/03/2018 Sig: COLLAGENASE CLOSTRIDIUM HISTO* Apply 1 application to affect* DOXYCYCLINE MONOHYDRATE 100 M* Take 1 tablet by mouth twice * FLUCONAZOLE 150 MG TABLET 1 tablet today and repeat in * RIZATRIPTAN 5 MG TABLET Take 1-2 tablets by mouth as * OXYCODONE-ACETAMINOPHEN 5 MG-* Take 1 tablet by mouth three * PREGABALIN 75 MG CAPSULE Take 1 capsule by mouth three* GABAPENTIN 600 MG TABLET Take 2 tablets by mouth three* TRAMADOL 50 MG TABLET Take 1-2 tablets by mouth nathalie* ONDANSETRON 4 MG DISINTEGRATI* Take 1 tablet by mouth every * INSULIN GLARGINE (U-100) 100 * Inject 12 Units subcutaneousl* PEN NEEDLE, DIABETIC 32 GAUGE* Use one needle for each dose.* BLOOD SUGAR DIAGNOSTIC STRIPS Test blood sugar(s) 4 times d* GLIMEPIRIDE 2 MG TABLET TAKE 2 TABLETS BY MOUTH TWICE* BUPROPION XL 300 MG 24 HR TAB Take 300 mg by mouth once josé* BENZONATATE 100 MG CAPSULE Take 2 capsules by mouth thre* VALACYCLOVIR 500 MG TABLET TAKE 1 TABLET BY MOUTH DAILY PROMETHAZINE 25 MG TABLET Take 1 tablet by mouth every * ORPHENADRINE CITRATE ER 100 M* Take 1 tablet by mouth twice * LISINOPRIL 10 MG TABLET Take 1 tablet by mouth twice * FLUTICASONE 50 MCG/ACTUATION * Use 2 Sprays in each nostril * MUPIROCIN 2 % TOPICAL OINTMENT APPLY TO AFFECTED AREA ONCE D* NADOLOL 80 MG TABLET Take 2 tablets by mouth once * LIDOCAINE 4 % TOPICAL CREAM Apply thin layer to affected * OMEPRAZOLE 20 MG CAPSULE,MELINDA* TAKE 1 CAPSULE BY MOUTH DAILY BUSPIRONE 5 MG TABLET Take 15 mg by mouth twice josé* OXYBUTYNIN CHLORIDE ER 15 MG * TAKE 1 TABLET BY MOUTH ONCE D* DICYCLOMINE 20 MG TABLET Take 1 tablet by mouth three * DIVALPROEX ER 500 MG TABLET,E* take 1 tablet by mouth daily OMEPRAZOLE MAGNESIUM 20 MG TA* Take 1 tablet by mouth daily * Patient not taking: Reported on 07/03/2018 HYDROCORTISONE 2.5 % TOPICAL * 1 application by RECTAL route* LANCETS Test blood sugar(s) 3 times d* BENZOCAINE-MENTHOL 15 MG-2.6 * Take 1 Lozenge by mouth every* Patient not taking: Reported on 06/07/2018 DIAZEPAM 5 MG TABLET Take 10 mg by mouth once kala* TRIAMCINOLONE ACETONIDE 0.1 %* Apply 1 application to affect* MOMETASONE-FORMOTEROL HFA 100* Inhale 2 Puffs as instructed * ALBUTEROL SULFATE HFA 90 MCG/* Inhale 2 Puffs as instructed * CPAP Initiate CPAP @ 14 cm of wate* Patient not taking: Reported on 08/01/2018 COMPOUNDED PRESCRIPTION Nebulizer for home use. Diagn* QUETIAPINE 300 MG TABLET Take 1 tablet by mouth daily * Patient taking differently: Take 300 mg by mouth daily at* Problem List As Of Date 10/03/2018 Noted Resolved ESOPHAGEAL REFLUX [K21.9] More... Unspecified asthma(493.90) [J45.909] 06/02/2017 More... 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 Unspecified vitamin D deficiency [E55.9] INVALID FOR*02/27/2013 GENITAL HERPES NEC [A60.00] INVALID FOR* URGE AND STRESS MIXED INCONTINENCE [N39.46] INVALID FOR* LACERATION -NOT COMPLICATED BREAST [S21.009A] INVALID FOR*02/27/2013 Diabetes (HCC) [E11.9] INVALID FOR* Enthesopathy of unspecified site [M77.9] INVALID FOR*02/27/2013 Adenopathy, Hilar [R59.0] INVALID FOR* Major depressive disorder, recurrent episode (H*INVALID FOR* Abnormal mammogram, unspecified [R92.8] INVALID FOR*06/02/2017 Wound, open, breast [S21.009A] INVALID FOR*02/27/2013 Benign neoplasm of skin of lower limb, includin*INVALID FOR*02/27/2013 Umbilical hernia without mention of obstruction*INVALID FOR*06/02/2017 Ventral hernia, unspecified, without mention of*INVALID FOR*06/02/2017 Anxiety [F41.9] INVALID FOR* Vitamin d deficiency [E55.9] INVALID FOR* Urge incontinence of urine [N39.41] INVALID FOR*06/02/2017 Pain of left lower leg [M79.662] INVALID FOR* Carpal tunnel syndrome of right wrist [G56.01] INVALID FOR*06/02/2017 Morbid obesity with BMI of 45.0-49.9, adult (HC* ABRAM (obstructive sleep apnea) [G47.33] INVALID FOR* More... Left carpal tunnel syndrome [G56.02] INVALID FOR*06/02/2017 Asthma with COPD with exacerbation (HCC) [J44.1*INVALID FOR* HTN (hypertension) [I10] INVALID FOR* Ganglion cyst of finger of right hand [M67.441] INVALID FOR* More... Letter Text Medicine [facility] [address] [place] [address] Office: [phone] Terrie Molina MD REQUEST FOR EYE EXAM FINDINGS December 09, 2016 Dear eye resident care coordinator, Thank you for coordinating eye care for our mutual patient, Edel Lang (1965). Please fax this letter back to me with the most appropriate response selected below. Please allow the patient's signature to serve as permission to share your findings. Sincerely, Terrie Molina MD Patient Signature Date Date of eye exam: Findings Both Eyes Right Left No Retinopathy Detected Non Proliferative Retinopathy Mild Moderate Severe Proliferative Retinopathy Macular Edema Further testing and/or treatment indicated Comments: Patient is to return: Letter Text [facility] Terrie Molina MD [address], [place] [address] Dear Edel Lang Your health care is very important to us. Our records indicate that you may be due for a diabetic eye exam. If you have had a diabetic eye exam within the last year, please have your records sent to us so that we may update your medical records. There is a medical records of release of information included in this letter. Please take the release to your eye doctor for future appointments to have your records forwarded to us. Important facts about diabetic eye exams Diabetic retinal exams should be done yearly for all patients with a diagnosis of diabetes. Risks such as diabetic retinopathy can be reduced with blood glucose control and early detection of potential problems. Diabetic retinopathy is damage to the small blood vessels in the retina that can lead to blindness Thank you, Terrie Molina MD Encounter Status:Closed by KRYSTAL MENSAH CMA on 10/05/18 PROGRESS Observed: 09/27/2018 Status: COMPLETED Source: [place] 12:53 PM [facility] REPOSITORY HNO ID: [id number] Author: Terrie Lopez Service: (none) Author Type: Physician Type: Progress Notes Filed: 10/09/2018 12:00 AM Note Text: Patient seen after DM SMA to review other medical issues, including below. Sinus infection symptoms. Also leg. Ulcer again--using santyl and antibacterial Stressors noted Not sleeping well past few nights. Wants to try back on Lyrica. Terrie Lopez MD PROGRESS Observed: 09/27/2018 Status: COMPLETED Source: [place] 10:00 AM [facility] REPOSITORY HNO ID: [id number] Author: Terrie Lopez Service: (none) Author Type: Physician Type: Progress Notes Filed: 10/09/2018 12:00 AM Note Text: Patient presents for DM SMA with Dr. Lopez and Chris Howard, JennaD GOALS: <7% Edel Lang is a 52 year old female was last seen by PCP, Dr. Lopez on 08/16 for an SMA. At last PCP visit, dose of insulin glargine was increased to 12 units daily. Subjective: Reports being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 turn red Date Reviewed: 09/27/2018 Reviewed by: Tiffany Martin LPN - Fully Assessed Reason for Visit: DM SMA [Other] Imm/Inj [58] Cmt: Flu Vaccine Reason For Visit History Recorded Primary Visit Diagnosis:Uncontrolled type 2 diabetes mellitus with hyperglycemia (HCC) [E11.65] Other Visit Diagnoses:Essential hypertension [I10] Ulcer of leg, chronic, left, limited to breakdown of skin (HCC) [L97.921] Infected ulcer of skin, limited to breakdown of skin (HCC) [L98.491, L08.9] Comment:looks like infection being prevented by doxy for COPD exac Acute non-recurrent maxillary sinusitis [J01.00] Comment:Already using Flonase and Mucinex; past 2 days; getting worse;gums aching Bronchitis [J40] Antibiotic-induced yeast infection [B37.9, T36.95XA] Back strain, sequela [S39.012S] Acute midline low back pain without sciatica [M54.5] Diabetic polyneuropathy associated with type 2 diabetes mellitus (HCC) [E11.42] Need for vaccination [Z23] Order(s):collagenase (SANTYL) ointmentApply 1 application to affected area once daily. To leg ulcers till healedDisp: 30 gRfl: 0 doxycycline monohydrate 100 mg tabletTake 1 tablet by mouth twice daily for 20 days. Extend course as neededDisp: 20 tabletRfl: 1 fluconazole (DIFLUCAN) 150 mg tablet1 tablet today and repeat in 72 hoursDisp: 2 tabletRfl: 0 rizatriptan (MAXALT) 5 mg tabletTake 1-2 tablets by mouth as needed. May repeat in 2 hours if neededDisp: 6 tabletRfl: 11 [] oxyCODONE-acetaminophen (PERCOCET) 5-325 mg tabletTake 1 tablet by mouth three times daily as needed for up to 7 days. Recurrent leg ulcerDisp: 21 tabletRfl: 0 pregabalin (LYRICA) 75 mg capsuleTake 1 capsule by mouth three times daily for 30 days. As directedDisp: 90 capsuleRfl: 0 INFLUENZA VACCINE QUADRIVALENT AGE 3 YRS PLUS + IM [[id number]] Order #: [id number] Prescriptions as of 09/27/2018 Sig: COLLAGENASE CLOSTRIDIUM HISTO* Apply 1 application to affect* DOXYCYCLINE MONOHYDRATE 100 M* Take 1 tablet by mouth twice * FLUCONAZOLE 150 MG TABLET 1 tablet today and repeat in * RIZATRIPTAN 5 MG TABLET Take 1-2 tablets by mouth as * OXYCODONE-ACETAMINOPHEN 5 MG-* Take 1 tablet by mouth three * PREGABALIN 75 MG CAPSULE Take 1 capsule by mouth three* GABAPENTIN 600 MG TABLET Take 2 tablets by mouth three* TRAMADOL 50 MG TABLET Take 1-2 tablets by mouth nathalie* ONDANSETRON 4 MG DISINTEGRATI* Take 1 tablet by mouth every * INSULIN GLARGINE (U-100) 100 * Inject 12 Units subcutaneousl* PEN NEEDLE, DIABETIC 32 GAUGE* Use one needle for each dose.* BLOOD SUGAR DIAGNOSTIC STRIPS Test blood sugar(s) 4 times d* GLIMEPIRIDE 2 MG TABLET TAKE 2 TABLETS BY MOUTH TWICE* BUPROPION XL 300 MG 24 HR TAB Take 300 mg by mouth once josé* BENZONATATE 100 MG CAPSULE Take 2 capsules by mouth thre* VALACYCLOVIR 500 MG TABLET TAKE 1 TABLET BY MOUTH DAILY PROMETHAZINE 25 MG TABLET Take 1 tablet by mouth every * ORPHENADRINE CITRATE ER 100 M* Take 1 tablet by mouth twice * LISINOPRIL 10 MG TABLET Take 1 tablet by mouth twice * FLUTICASONE 50 MCG/ACTUATION * Use 2 Sprays in each nostril * MUPIROCIN 2 % TOPICAL OINTMENT APPLY TO AFFECTED AREA ONCE D* NADOLOL 80 MG TABLET Take 2 tablets by mouth once * LIDOCAINE 4 % TOPICAL CREAM Apply thin layer to affected * OMEPRAZOLE 20 MG CAPSULE,MELINDA* TAKE 1 CAPSULE BY MOUTH DAILY BUSPIRONE 5 MG TABLET Take 15 mg by mouth twice josé* OXYBUTYNIN CHLORIDE ER 15 MG * TAKE 1 TABLET BY MOUTH ONCE D* DICYCLOMINE 20 MG TABLET Take 1 tablet by mouth three * DIVALPROEX ER 500 MG TABLET,E* take 1 tablet by mouth daily OMEPRAZOLE MAGNESIUM 20 MG TA* Take 1 tablet by mouth daily * Patient not taking: Reported on 07/03/2018 HYDROCORTISONE 2.5 % TOPICAL * 1 application by RECTAL route* LANCETS Test blood sugar(s) 3 times d* BENZOCAINE-MENTHOL 15 MG-2.6 * Take 1 Lozenge by mouth every* Patient not taking: Reported on 06/07/2018 DIAZEPAM 5 MG TABLET Take 10 mg by mouth once kala* TRIAMCINOLONE ACETONIDE 0.1 %* Apply 1 application to affect* MOMETASONE-FORMOTEROL HFA 100* Inhale 2 Puffs as instructed * ALBUTEROL SULFATE HFA 90 MCG/* Inhale 2 Puffs as instructed * CPAP Initiate CPAP @ 14 cm of wate* Patient not taking: Reported on 08/01/2018 COMPOUNDED PRESCRIPTION Nebulizer for home use. Diagn* QUETIAPINE 300 MG TABLET Take 1 tablet by mouth daily * Patient taking differently: Take 300 mg by mouth daily at* Problem List As Of Date 09/27/2018 Noted Resolved ESOPHAGEAL REFLUX [K21.9] More... Unspecified asthma(493.90) [J45.909] 06/02/2017 More... 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 Unspecified vitamin D deficiency [E55.9] INVALID FOR*02/27/2013 GENITAL HERPES NEC [A60.00] INVALID FOR* URGE AND STRESS MIXED INCONTINENCE [N39.46] INVALID FOR* LACERATION -NOT COMPLICATED BREAST [S21.009A] INVALID FOR*02/27/2013 Diabetes (HCC) [E11.9] INVALID FOR* Enthesopathy of unspecified site [M77.9] INVALID FOR*02/27/2013 Adenopathy, Hilar [R59.0] INVALID FOR* Major depressive disorder, recurrent episode (H*INVALID FOR* Abnormal mammogram, unspecified [R92.8] INVALID FOR*06/02/2017 Wound, open, breast [S21.009A] INVALID FOR*02/27/2013 Benign neoplasm of skin of lower limb, includin*INVALID FOR*02/27/2013 Umbilical hernia without mention of obstruction*INVALID FOR*06/02/2017 Ventral hernia, unspecified, without mention of*INVALID FOR*06/02/2017 Anxiety [F41.9] INVALID FOR* Vitamin d deficiency [E55.9] INVALID FOR* Urge incontinence of urine [N39.41] INVALID FOR*06/02/2017 Pain of left lower leg [M79.662] INVALID FOR* Carpal tunnel syndrome of right wrist [G56.01] INVALID FOR*06/02/2017 Morbid obesity with BMI of 45.0-49.9, adult (HC* ABRAM (obstructive sleep apnea) [G47.33] INVALID FOR* More... Left carpal tunnel syndrome [G56.02] INVALID FOR*06/02/2017 Asthma with COPD with exacerbation (HCC) [J44.1*INVALID FOR* HTN (hypertension) [I10] INVALID FOR* Ganglion cyst of finger of right hand [M67.441] INVALID FOR* More... Visit Notes: >> Tiffany Martin LPN Raisa Sep 27, 2018 1:25 PM Status: Signed Influenza Vaccine Documentation: ? Patient is identified by name and date of : Yes ? Patient is older than 6 months of age: Yes ? Patient denies a severe allergy to any vaccine component or to a previous dose of influenza vaccine: Yes FOR EGG ALLERGY CONCERNS, REFER TO PROVIDER. ? Denies allergy to gelatin, formaldehyde, thimerosol :Yes ? Patient is afebrile and not moderately or severely ill: Yes ? Does the patient have a history of Guillain ?[place] Syndrome (a severe paralytic illness): No ? Denies bone marrow transplant prior 6 months or solid organ transplant prior 3 months: Yes ? Denies a history of fainting after a prior injection or medical procedure? Yes If patient has fainted in the past, the CDC recommends sitting or lying down for 15 minutes after the vaccination. ? VIS sheet provided: Yes ? See Immunization Form in [facility] for details of immunizations administered today. If patient reports dizziness, vision changes or ringing in the ears post vaccination ? please have patient sit or lie down for 15 minutes. Prescriptions ordered this encounter Disp Refills Start End COLLAGENASE CLOSTRIDIUM HISTOLYTICUM* 30 g 0 09/27/2018 Route: TOPICAL Sig: Apply 1 application to affected area once daily. To leg ulcers till healed DOXYCYCLINE MONOHYDRATE 100 MG TABLET 20 t* 1 09/27/2018 10/17/2018 Route: ORAL Sig: Take 1 tablet by mouth twice daily for 20 days. Extend course as needed FLUCONAZOLE 150 MG TABLET 2 ta* 0 09/27/2018 Si tablet today and repeat in 72 hours RIZATRIPTAN 5 MG TABLET 6 ta* 11 09/27/2018 Route: ORAL Sig: Take 1-2 tablets by mouth as needed. May repeat in 2 hours if needed OXYCODONE-ACETAMINOPHEN 5 MG-325 MG * 21 t* 0 09/27/2018 10/04/2018 Class: Print RX Route: ORAL Sig: Take 1 tablet by mouth three times daily as needed for up to 7 days. Recurrent leg ulcer PREGABALIN 75 MG CAPSULE 90 c* 0 09/27/2018 10/27/2018 Class: Print RX Route: ORAL Sig: Take 1 capsule by mouth three times daily for 30 days. As directed Medications Discontinued During This Encounter collagenase (SANTYL) ointment 15 g 0 07/03/2018 09/27/2018 Route: TOPICAL Sig: Apply 1 application to affected area once daily. To leg ulcers till healed Disc: Reason for discontinue is not on file. doxycycline monohydrate 100 mg tablet 20 t* 0 08/01/2018 09/27/2018 Class: Print RX Cmt: May transfer to [facility] if less expensive. Route: ORAL Sig: Take 1 tablet by mouth twice daily for 10 days. Disc: Reason for discontinue is not on file. fluconazole (DIFLUCAN) 150 mg tablet 2 ta* 0 07/03/2018 09/27/2018 Si tablet today and repeat in 72 hours Disc: Reason for discontinue is not on file. rizatriptan (MAXALT) 5 mg tablet 6 ta* 2 07/03/2018 09/27/2018 Route: ORAL Sig: Take 1-2 tablets by mouth as needed. May repeat in 2 hours if needed Disc: Reason for discontinue is not on file. oxyCODONE-acetaminophen (PERCOCET) 5* 21 t* 0 08/16/2018 09/27/2018 Class: Print RX Route: ORAL Sig: Take 1 tablet by mouth three times daily as needed for up to 7 days. Recurrent leg ulcer Disc: Reason for discontinue is not on file. Disposition: Return for Add [facility] in October. Follow-up and Disposition History Recorded Encounter Status:Closed by TERRIE LOPEZ MD on 10/09/18 ENDOCRINOLOGY VISIT Observed: 09/26/2018 Status: F Source: [place] RE[place] 12:05 PM [facility] REPOSITORY [facility] [address] [place] [address]. [address] [place] [address] OFFICE VISIT Date of Service: 09/25/18 MR#: [id number] Acct: [id number] Name: EDEL LANG Rep #: [id number] : 1965 Provider: Danyelle Weber NP Age/Sex: 52/F [place] [facility] [place]: Signed HPI History of present illness Edel Lang is a 52 year old female who presents for follow up of diabetes type 2. Diagnosed approx 24 years ago at age 28. Started on Basaglar at her initial visit here. Currently on 12 units daily. Pt denies difficulty with injections or self monitoring of BG. Denies any signs of infection or irritation at site of injections. Reports taking insulin as directed States BG were improving but has had stress with her son illness, in family and job stress and noted last week she had 2 BG readings that were 300 but they did return to low 200 range. History Reports A1c historically in the 6 range but recently in the hospital with resp illness and leg wound as well as HTN. Was given sliding scale insulin three times daily during hospital stay due to elevated readings but returned home on regular medications. Continued on prednisone taper ad reports BG readings 200-400. Last A1c 9.1 Leg woud leg lower extremity below knee remains open with no drainage. Approximately 0.5 cm in diameter x 2 below knee. Has directions to apply topical ointment. At time of visit: -Pt denies symptoms of hypertensive emergency (CP,SOB,AG, or blurred vision) and hypotension(dizziness or lightheadedness) -Pt denies symptoms of hypoglycemia ( sweaty, confusion, anxiety, tremor, hunger, palpitations) and hyperglycemia ( polydipsia, polyuria) -Pt denies potential medication adverse effect. Hypoglycemia Aware of hypoglycemia: When awake Able to self treat low BG: Yes Frequent low Bloo sugar: No Has supply of glucagon: Yes SMBG BG 164-220 Checks BG 0-2 times daily. Diet 3 meals Follows diabetic diet No cab counting General: Alert, Oriented x3, No apparent distress HEENT: Atraumatic, EOMI, Normocephalic Oral: Moist Mucosa Neck: Supple, Lungs: Clear to auscultation, Normal air movement, No rhonchi, No wheeze, No rales Cardiovascular: Regular rate, Regular Rhythm, Normal S1, Normal S2, No murmurs Abdomen: Soft, Non Tender, Non-Distended, No Hepato-splenomegaly Extremities: Edema - non-pitting Skin: Ulcer/ Wound - on left tibia, appears healing without drainage, Psych/Mental Status: Normal Affect, Appropriate Type: type 2, insulin-requiring Glucose control symptoms: Reports high fasting glucose and high post-meal glucose Weight and fatigue symptoms: Denies snoring Cardiopulmonary symptoms: Reports lightheadedness; denies chest pain at rest, dyspnea on exertion or myalgias GI symptoms: Reports constipation; denies diarrhea, nausea/dyspepsia or vomiting Other symptoms: Denies blurry vision or change in vision Pertinent visit history: Reports recent visit to ER; Denies recent hospital admission Self monitoring: Yes Glucose testing: demonstrates correct use of meter Sick day education - understands ketone testing: Yes Physical activity: sedentary lifestyle Intake Vital Signs09/25/18 Height 5 ft 5 in Intake Visit Reasons: Diabetes follow-up Chief Complaint: diabetes type 2 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 Required: No Accompanied by: Self Allergies vancomycin Allergy (Severe, Verified 09/25/18 08:55) BURNING RED RASH ON LEGGS cefazolin sodium [From Ancef] Allergy (Verified 09/25/18 08:55) Hives Penicillins Allergy (Verified 09/25/18 08:55) Hives Medications Buspirone HCl 20 mg PO TID PRN PRN 03/05/17 [History Confirmed 09/25/18] Gabapentin [Neurontin] 1,200 mg PO TID 03/05/17 [History Confirmed 09/25/18] Nadolol [Corgard (Beta Torin)] 160 mg PO DAILY 03/05/17 [History Confirmed 09/25/18] Oxybutynin Chloride [Ditropan Xl] 15 mg PO QHS 03/05/17 [History Confirmed 09/25/18] Quetiapine Fumarate [Quetiapine Fumarate ER] 50 mg PO DAILY 03/05/17 [History Confirmed 09/25/18] Quetiapine Fumarate [Quetiapine Fumarate ER] 300 mg PO QHS 03/05/17 [History Confirmed 09/25/18] buPROPion XL [Wellbutrin Xl] 300 mg PO DAILY 03/05/17 [History Confirmed 09/25/18] Lisinopril 20 mg PO QHS 03/20/17 [History Confirmed 09/25/18] divalproex 125 mg capsule,delayed release sprinkle 500 mg PO DAILY 02/18/18 [History Confirmed 09/25/18] omeprazole 10 mg capsule,delayed release 10 mg PO DAILY 02/18/18 [History Confirmed 09/25/18] valacyclovir 1 gram tablet 1,000 mg PO QDAY 02/18/18 [History Confirmed 09/25/18] Diazepam [Valium] 10 mg PO BID PRN PRN 03/11/18 [History Confirmed 09/25/18] Orphenadrine [Norflex] 100 mg PO BID PRN 03/11/18 [History Confirmed 09/25/18] traMADol [Ultram] 100 mg PO Q6H PRN PRN 03/11/18 [History Confirmed 09/25/18] Albuterol Inhaler [Ventolin Hfa] 2 puff INHALATION Q4H PRN PRN 05/29/18 [History Confirmed 09/25/18] Clindamycin [Cleocin] 450 mg PO TID 5 Days #15 cap 07/10/18 [Rx Confirmed 09/25/18] glimepiride 2 mg tablet 4 mg PO BID tab 09/20/18 [History Confirmed 09/25/18] insulin glargine (U-100) 100 unit/mL (3 mL) subcutaneous pen 12 unit SC .q am #3 ml 09/20/18 [Rx Confirmed 09/25/18] metformin 500 mg tablet 500 mg PO BID #60 tab 09/25/18 [Rx Confirmed 09/25/18] Nurse's Note: blood sugars : low : 168 high : 486 [facility] Medical History Arthritis (Acute) Asthma (Acute) Back pain (Acute) COPD (chronic obstructive pulmonary disease) (Acute) Diabetes (Acute) Fatigue (Acute) Hemorrhoids (Acute) Hx of hysterectomy (Acute) Knee pain (Acute) Migraines (Acute) HTN (hypertension) (Chronic) Surgical History H/O hernia repair (Acute) Hx of section (Acute) Kidney stone (Acute) knee scope (Acute) Family History Other Hypertension Kidney disease Social History Smoking Status: Never smoker ROS Const Constitutional: Positive for chills and fatigue; no anorexia, body ache, fever(s), frequent falls, decreased energy, malaise, night sweats, weakness, weight change, sleep problems, abnormal sleep pattern, change in appetite, other, headache(s), snoring or excessive sweating Eyes Eyes: No blurry vision, change in vision, double vision, discharge, dry eyes, bulging eyes, floaters, visual disturbances, eye pain, light sensitivity, spots in vision, tunnel vision or other ENT ENT: No abnormal hearing, ear pain, ear discharge, ear pressure, hearing loss, tinnitus, dizziness/vertigo, balance problems, nosebleed/epistaxis, nasal congestion, nasal obstruction, nose pain, sinus pressure, sinus pain, nasal discharge, post nasal drip, headache(s), facial pain, dental pain, dry mouth, bad breath, hoarseness, lip swelling, mouth lesions, mouth pain, sore throat, tongue swelling, throat swelling, other, difficulty swallowing or neck pain Resp Respiratory: Positive for wheezing; no cough, change in phlegm color, chest congestion, excessive phlegm production, hemoptysis, pain on inspiration, shortness of breath, pain with cough, snoring, stridor or other Cardio Cardiology: Positive for lightheadedness; no chest pain at rest, chest pain with exertion, leg pain with exertion, excessive sweating, shortness of breath, dyspnea on exertion, generalized swelling, irregular heart rhythm, orthopnea, radiating jaw, neck or arm pain, fast heart rate, slow heart rate, palpitations or other Gastro GI: Positive for constipation; no abdominal pain, belching, bloating, change in bowel habits, change in stool character, coffee ground emesis, cramping, diarrhea, heartburn, difficulty swallowing, feeling full early, excessive flatus, incontinent of stools, Vomiting blood/hematemesis, blood in stool, loose stools, Black,tarry stools, nausea/dyspepsia, pain with swallowing, vomiting or other Genitourinary-Female: No difficulty urinating, burning urination, painful urination, urinary incontinence, urinary frequency, urinary urgency, urinary hesitancy, urinary retention, blood in urine, Frequent nighttime urination/ nocturia, post void dribbling, suprapubic fullness, side pain, sexual problems, genital lesions, genital itching, hot flashes, abnormal periods, abnormal vaginal bleeding, absent period, painful periods, light periods, heavy periods, difficulty getting , painful intercourse, pelvic pain, vaginal dryness, vaginal odor, Vaginal Itching or other Musc Musculoskeletal: No abnormal walking, joint pain, back pain, deformity, joint swelling, limited range of motion, loss of height, muscle cramps, muscle weakness, decreased muscle mass, body aches, neck pain, numbness, radiating pain into limb, stiffness, tingling or other Skin Skin: Positive for wounds (L leg); no acne, hair loss, change in hair, nail changes, boil, change in skin color, dry skin, redness, excessive hair growth, yellowing of the skin, lesions, itching, rash, skin pain, skin ulcer, sores, skin swelling or other Breast Breast: No other Neuro Neurology: No frequent falls, weakness, visual disturbances, abnormal hearing, headache(s), abnormal walking, numbness or tingling Psych Psychiatric: No abnormal sleep pattern, No change in appetite Endo Endocrine: Positive for fatigue; no other or excessive sweating Aller/Imm Allergy/Immunologic: Positive for wheezing; no lip swelling, tongue swelling, throat swelling or itchy eyes Assessment AND Plan 1. Type 2 diabetes mellitus with complication, without long- term current use of insulin E11.8 Plan Will continue to increase insulin but also will start metformin. She was on this in th past but had diarrhea at 2500 mg daily. No one ever tried lower dose to determine if she could tolerate or even try an ER formula. Will start low . Enc to monitor diet and also to check B consistently and in a consistent manner of before each meal and bedtime. Reviewed diet Patient Instructions BG reading before each meal Increase basaglar by 1 unit every 3 days if all BG above 125 Control portions Food selections should be healthy Choose more low carb vegetables Avoid snacks and desserts. Drink water Exercise daily Eat more fresh foods, not canned or processed Eat more slowly Orders Orders: Plan Detail Other Medications New: Additional Comments 1. Please schedule follow up in 6 weeks. 2. Lab work one week before appointment. 3. Discussed importance of regular exercise and recommend starting or continuing a regular exercise program for good health. 4. The patient was encouraged to lose weight for good health 5. The importance of monitoring blood sugar regularly was reviewed. 6. The importance of monitoring the HBA1c level regularly was reviewed. 7. The importance of prper foot care and regularly checking feet to prevent sores and loss of limbs was reviewed. 8. The importance of keeping BP at or below 130/80 to prevent stroke, heart attacks, kidney failure, blindness was reviewed. Spent approximately 30 minutes with patient with over 50% of time spent in discussion and counseling regarding medication adjustment, symptoms and treatment of hypoglycemia, diet adherence, and checking BG before driving. Coding Level of Care Code Off vis,est,level 4 Diagnoses Type 2 diabetes mellitus with complication, without long-term current use of insulin E11.8 Diabetes mellitus complication status: with unspecified complications Diabetes mellitus terminal gauger insulin use: without care home use 09/26/18 1205 <Electronically signed by Danyelle MACEDO> Date Danyelle MACEDO Cosigner Signature: Date (if applicable) CC: CNCO Observed: 08/30/2018 Status: COMPLETED Source: [place] 12:00 AM [facility] REPOSITORY Letter Text [address] [place] [address] 08/30/2018 Edel K Rickey [id number] Dear Edel , As your healthcare provider, our records indicate that you are due for colorectal cancer screening. This is extremely important if you have any family history of colon cancer as well as to the general population over the age of 50. A colonoscopy is a preventative test that we offer to complete this screening. Most insurances will pay for this test without any out of pocket expense to the patient. We have been unsuccessful in reaching you by phone to discuss this procedure. Please contact our schedulers at [phone] schedule an appointment or contact your primary care physician if you have any questions regarding colon cancer screening. As always, your health is of primary concern to our practice. We look forward to hearing from you. Sincerely, [facility] PROGRESS Observed: 08/16/2018 Status: COMPLETED Source: [place] 11:43 AM [facility] REPOSITORY HNO ID: [id number] Author: Terrie Lopez Service: (none) Author Type: Physician Type: Progress Notes Filed: 09/02/2018 3:42 PM Note Text: Left leg--noted 2 spots--smaller ulcer healing well with pink base. Leager one about 1cm diameter with some yellow dried slough. No bright red areas or signs of fluctuance. Has Santyl to use. Also using bactroban. PDMP website checked and validated. All prescriptions have been APPROPRIATELY filled. No suspicious activity was identified. 08/16/2018 by Terrie Lopez MD PROGRESS Observed: 08/16/2018 Status: COMPLETED Source: [place] 10:00 AM [facility] REPOSITORY HNO ID: [id number] Author: Terrie Lopez Service: (none) Author Type: Physician Type: Progress Notes Filed: 09/02/2018 3:42 PM Note Text: Patient presents for DM SMA with Dr. Lopez and Chris Howard, Trudy GOALS: A1c <7% Edel Lang is a 52 year old female was last seen by PCP, Dr. Lopez on 07/03/18. Also saw Carlos Santiago on 07/17/18. At last PCP visit, no medication changes were made. Subjective: Resigned from job this AM Reports needing more time to focus on her own health Unwilling to start metformin Diarrhea induces herpes outbreak Past DM medications: Metformin ER - GI intolerance; refuses to retry med Current DM regimen: Glimepiride 4mg BID Insulin glargine (Basaglar) 10 units daily Current BP regimen: Lisinopril 10mg BID Nadalol 160mg daily ? Patient denies CP, SOB, AG, blurred vision, dizziness or lightheadedness ? Patient denies symptoms of hypoglycemia (sweating, anxiety, palpitations, hunger, and tremor) ? Patient denies symptoms hyperglycemia (polyuria, polydipsia) ? Patient denies potential medication adverse effects DIET/EXERCISE/SOCIAL Hx: ? No changes ALLERGIES Allergen Reactions - Nia [Fexofenadi* Shortness of Breath - Ancef [Cefazolin So* Hives - Clindamycin Diarrhea - Duoderm [Other] severe burning pain at point of contact. No redness. - Elavil [Amitriptyli* hallucinations - Macrobid [Nitrofura* Hives - Norvasc [Amlodipine] Swelling - Vancomycin Swelling legs swell and turn red PAST MEDICAL HISTORY Diagnosis Date - FIBROMYALGIA - Cellulitis and abscess of unspecified site 11/26 right leg - Depressive disorder, not elsewhere classified - Dysmetabolic syndrome X 08/09/2006 - Esophageal reflux Gastroesophageal reflux - Generalized anxiety disorder - Hx of cystoscopy 09/11/2017 - Localized osteoarthrosis not specified whether primary or secondary, other specified sites bilateral knees - Morbid obesity with BMI of 50.0-59.9, adult (HCC) - Other genital herpes 08/09/2006 - Type II or unspecified type diabetes mellitus without mention of complication, not stated as uncontrolled - Unspecified asthma(493.90) - Unspecified essential hypertension Essential hypertension - Whooping cough, unspecified organism 11/26 Current Outpatient Prescriptions: glimepiride (AMARYL) 2 mg tablet TAKE 2 TABLETS BY MOUTH TWICE A DAY WITH MEALS DIRECTED buPROPion XL (WELLBUTRIN XL) 300 mg 24 hr tablet Take 300 mg by mouth once daily. 450mg daily insulin glargine,hum.rec.anlog (BASAGLAR KWIKPEN U-100 INSULIN SUBCUTANEOUS) Inject subcutaneously. benzonatate (TESSALON PERLE) 100 mg capsule Take 2 capsules by mouth three times daily as needed. valACYclovir (VALTREX) 500 mg tablet TAKE 1 TABLET BY MOUTH DAILY promethazine (PHENERGAN) 25 mg tablet Take 1 tablet by mouth every 6 hours as needed. ondansetron orally disintegrating (ZOFRAN ODT) 4 mg disintegrating tablet take 1 tablet by mouth every 8 hours if needed for nausea and vomiting orphenadrine ER (NORFLEX) 100 mg tablet Take 1 tablet by mouth twice daily as needed for Muscle Spasm. fluconazole (DIFLUCAN) 150 mg tablet 1 tablet today and repeat in 72 hours rizatriptan (MAXALT) 5 mg tablet Take 1-2 tablets by mouth as needed. May repeat in 2 hours if needed collagenase (SANTYL) ointment Apply 1 application to affected area once daily. To leg ulcers till healed ondansetron orally disintegrating (ZOFRAN ODT) 4 mg disintegrating tablet Take 1 tablet by mouth every 8 hours as needed for Nausea/Vomiting. lisinopril (ZESTRIL, PRINIVIL) 10 mg tablet Take 1 tablet by mouth twice daily. As directed fluticasone (FLONASE) 50 mcg/actuation nasal spray Use 2 Sprays in each nostril once daily. mupirocin (BACTROBAN) 2 % ointment APPLY TO AFFECTED AREA ONCE DAILY nadolol (CORGARD) 80 mg tablet Take 2 tablets by mouth once daily. lidocaine (LMX) 4 % cream Apply thin layer to affected area three times a day as needed for pain traMADol (ULTRAM) 50 mg tablet Take 1-2 tablets by mouth every 6 hours as needed for up to 90 days. omeprazole (PRILOSEC) 20 mg capsule TAKE 1 CAPSULE BY MOUTH DAILY busPIRone (BUSPAR) 5 mg tablet Take 15 mg by mouth twice daily. Dose needs clarified with patients pharmacy. oxybutynin ER (DITROPAN XL) 15 mg 24 hr Extended Rel Tab TAKE 1 TABLET BY MOUTH ONCE DAILY. dicyclomine (BENTYL) 20 mg tablet Take 1 tablet by mouth three times daily. valACYclovir (VALTREX) 500 mg tablet Take 1 tablet by mouth once daily. divalproex ER (DEPAKOTE ER) 500 mg 24 hr tablet take 1 tablet by mouth daily Omeprazole Magnesium (PRILOSEC OTC) 20 mg tablet Take 1 tablet by mouth daily before breakfast. 1/2 hr before meal. (Patient not taking: Reported on 07/03/2018 ) gabapentin (NEURONTIN) 600 mg tablet TAKE 2 TABLETS THREE TIMES A DAY hydrocortisone (ANUSOL-HC) 2.5 % rectal cream 1 application by RECTAL route twice daily. As directed blood sugar diagnostic (BLOOD GLUCOSE TEST) test strip Test blood sugar(s) 3 times daily. Dx: Type 2 DM - Uncontrolled E11.65 Insulin: No Lancets lancets Test blood sugar(s) 3 times daily. Dx: Type 2 DM - Uncontrolled E11.65 Insulin: No benzocaine-menthol (CEPACOL) 15-2.6 mg lozg lozenge Take 1 Lozenge by mouth every 3 hours as needed. (Patient not taking: Reported on 06/07/2018 ) diazePAM (VALIUM) 5 mg tablet Take 10 mg by mouth once daily as needed for Anxiety. triamcinolone acetonide (KENALOG) 0.1 % cream Apply 1 application to affected area twice daily. For itchy lesions for 2 weeks (torso or extremities) as directed mometasone-formoterol (DULERA) 100-5 mcg/actuation inhaler Inhale 2 Puffs as instructed twice daily. albuterol HFA (VENTOLIN HFA) 90 mcg/actuation inhaler Inhale 2 Puffs as instructed every 4 hours as needed for Wheezing/Shortness of Breath. blood sugar diagnostic (FREESTYLE LITE STRIPS) test strip Test blood sugar(s) 3 times daily. Dx: Type 2 DM - Controlled E11.9 Insulin: Yes CPAP Initiate CPAP @ 14 cm of water with humidification. EPR setting of 3. Mask (per patient preference) optional chin strap (if indicated) , filters, tubing, humidifier and lifetime supplies. (Patient not taking: Reported on 08/01/2018 ) COMPOUNDED PRESCRIPTION Nebulizer for home use. Diagnosis: Asthma exacerbation QUEtiapine (SEROQUEL) 300 mg tablet Take 1 tablet by mouth daily at bedtime. Also takes [address] Patterson. (Patient taking differently: Take 300 mg by mouth daily at bedtime. ) No current facility-administered medications for this visit. GLYCEMIC CONTROL: ? SMBG?s: reports majority of BGs are in 200s (nothing below); FBG today 238; checks before meals and HS ? Hypoglycemia: none Objective: VITALS: BP 136/78 Pulse 63 Resp 24 Last 3 Encounter BP Readings: Date: BP: 08/01/2018 122/84 07/17/2018 120/76 07/03/2018 112/70 Wt: 147 kg (324 lb) BMI: 53.92 kg/(m2) LABS Lab Results Component Value Date HBA1C 9.1 07/03/2018 HBA1C 7.6 03/01/2018 HBA1C 7.0 09/28/2017 HBA1C 7.4 05/11/2017 CMP: Glucose 179 03/01/2018 BUN 14 03/01/2018 Creatinine 0.84 03/01/2018 Sodium 138 03/01/2018 Potassium 4.1 03/01/2018 Chloride 100 03/01/2018 CO2 23 03/01/2018 Protein, Total 7.2 03/01/2018 Albumin 4.0 03/01/2018 Calcium 8.7 03/01/2018 Alkaline Phosphatase 54 03/01/2018 Bilirubin, Total 0.3 03/01/2018 AST 25 03/01/2018 ALT 21 03/01/2018 Estimated Creatinine Clearance: 112.4 mL/min (based on SCr of 0.84 mg/dL). Last Lipid Panel Lab Results Component Value Date CHOL 113 09/28/2017 Lab Results Component Value Date HDL 31 09/28/2017 Lab Results Component Value Date LDL 59 09/28/2017 Lab Results Component Value Date TG 114 09/28/2017 Albumin/Creat Ratio (mg/g) Date Value 05/11/2017 Not calculated ASSESSMENT/PLAN: Uncontrolled type 2 diabetes mellitus with hyperglycemia (HCC) - ICD9: 250.02, ICD10: E11.65 A1c goal <7%; uncontrolled based on last A1c (9.1%); A1c increased drastically and patient unsure of cause; reports adherence with medications; currently on max-dose glimepiride and 10 units basal insulin; not on metformin 2/2 GI intolerance and refuses to retry medication; no concerns for hypoglycemia since all BGs are >200 - will increase basal insulin; patient interested in following with PharmD for DM management - will submit consult to pharmacy; patient may be good candidate for GLP-1 agonist - to address at next appt; also needs refill on test strips; renal fxn and LFTs WNL and appropriate for continued use - INCREASE insulin glargine to 12 units daily - CONTINUE glimepiride 4mg BID - BLOOD SUGAR DIAGNOSTIC STRIPS (refill) - CONSULT TO AMBULATORY CLINIC PHARMACY Many other chronic conditions addressed with f/u PCP visit - see Dr. Lopez' note for detail Patient is scheduled to see PCP today. Patient verbalized understanding of instructions. Dr. Lopez and Chris Howard PharmD The patient was seen, chart reviewed and I concur with the above evaluation and plan. Reviewed with SMA group management of DM. Encounter Diagnosis ICD-10-CM 1. Uncontrolled type 2 diabetes mellitus with hyperglycemia (HCC) E11.65 blood sugar diagnostic (FREESTYLE LITE STRIPS) test strip CONSULT TO AMBULATORY CLINIC PHARMACY 2. Generalized osteoarthritis M15.9 traMADol (ULTRAM) 50 mg tablet 3. Fibromyalgia M79.7 traMADol (ULTRAM) 50 mg tablet 4. Back strain, sequela S39.012S oxyCODONE-acetaminophen (PERCOCET) 5-325 mg tablet 5. Acute midline low back pain without sciatica M54.5 oxyCODONE-acetaminophen (PERCOCET) 5-325 mg tablet 6. Ulcer of leg, chronic, left, limited to breakdown of skin (HCC) L97.921 oxyCODONE-acetaminophen (PERCOCET) 5-325 mg tablet 7. Infected ulcer of skin, limited to breakdown of skin (HCC) L98.491 oxyCODONE-acetaminophen (PERCOCET) 5-325 mg tablet L08.9 looks like infection being prevented by doxy for COPD exac Above issues addressed with patient--DM during SMA and most of the other issues 1 on 1. Patient involved in shared decision making for management of medical issues. History and medications reviewed. Epic updated as needed Refills taken care of and meds adjusted as indicated after reviewed history, exam and labs. Health Maintenance reviewed. Updated record and/or ordered tests as recorded. Encouraged on efforts at healthy diet and regular exercise and adequate sleep. Stable with pain control. No signs of diversion or abuse of medication(s); no adverse effects. Continue present management. PDMP website checked and validated. All prescriptions have been APPROPRIATELY filled. No suspicious activity was identified. 09/02/2018 by MD Terrie Smith MD CNOV Observed: 08/16/2018 Status: COMPLETED Source: [place] 10:00 AM [facility] REPOSITORY Office Visit (INTMWS) EDEL LANG ([id number]) 1965 F Date Time Provider Department 08/16/18 10:00 AM TERRIE LOPEZ INTMWS During your visit today, we recorded the following information about you: Pulse Respiration Blood pressure 63/minute 24/minute 136/78 Terrie Lopez MD 09/02/2018 3:42 PM Signed Patient presents for DM SMA with Dr. Lopez and Chris Howard PharmD GOALS: A1c <7% Edelsudha Lang is a 52 year old female was last seen by PCP, Dr. Lopez on 07/03/18. Also saw Carlos Santiago on 07/17/18. At last PCP visit, no medication changes were made. Subjective: Resigned from job this AM Reports needing more time to focus on her own health Unwilling to start metformin Diarrhea induces herpes outbreak Past DM medications: Metformin ER - GI intolerance; refuses to retry med Current DM regimen: Glimepiride 4mg BID Insulin glargine (Basaglar) 10 units daily Current BP regimen: Lisinopril 10mg BID Nadalol 160mg daily ? Patient denies CP, SOB, AG, blurred vision, dizziness or lightheadedness ? Patient denies symptoms of hypoglycemia (sweating, anxiety, palpitations, hunger, and tremor) ? Patient denies symptoms hyperglycemia (polyuria, polydipsia) ? Patient denies potential medication adverse effects DIET/EXERCISE/SOCIAL Hx: ? No changes ALLERGIES Allergen Reactions - Nia [Fexofenadi* Shortness of Breath - Ancef [Cefazolin So* Hives - Clindamycin Diarrhea - Duoderm [Other] severe burning pain at point of contact. No redness. - Elavil [Amitriptyli* hallucinations - Macrobid [Nitrofura* Hives - Norvasc [Amlodipine] Swelling - Vancomycin Swelling legs swell and turn red PAST MEDICAL HISTORY Diagnosis Date - FIBROMYALGIA - Cellulitis and abscess of unspecified site 11/26 right leg - Depressive disorder, not elsewhere classified - Dysmetabolic syndrome X 08/09/2006 - Esophageal reflux Gastroesophageal reflux - Generalized anxiety disorder - Hx of cystoscopy 09/11/2017 - Localized osteoarthrosis not specified whether primary or secondary, other specified sites bilateral knees - Morbid obesity with BMI of 50.0-59.9, adult (HCC) - Other genital herpes 08/09/2006 - Type II or unspecified type diabetes mellitus without mention of complication, not stated as uncontrolled - Unspecified asthma(493.90) - Unspecified essential hypertension Essential hypertension - Whooping cough, unspecified organism 11/26 Current Outpatient Prescriptions: glimepiride (AMARYL) 2 mg tablet TAKE 2 TABLETS BY MOUTH TWICE A DAY WITH MEALS DIRECTED buPROPion XL (WELLBUTRIN XL) 300 mg 24 hr tablet Take 300 mg by mouth once daily. 450mg daily insulin glargine,hum.rec.anlog (BASAGLAR KWIKPEN U-100 INSULIN SUBCUTANEOUS) Inject subcutaneously. benzonatate (TESSALON PERLE) 100 mg capsule Take 2 capsules by mouth three times daily as needed. valACYclovir (VALTREX) 500 mg tablet TAKE 1 TABLET BY MOUTH DAILY promethazine (PHENERGAN) 25 mg tablet Take 1 tablet by mouth every 6 hours as needed. ondansetron orally disintegrating (ZOFRAN ODT) 4 mg disintegrating tablet take 1 tablet by mouth every 8 hours if needed for nausea and vomiting orphenadrine ER (NORFLEX) 100 mg tablet Take 1 tablet by mouth twice daily as needed for Muscle Spasm. fluconazole (DIFLUCAN) 150 mg tablet 1 tablet today and repeat in 72 hours rizatriptan (MAXALT) 5 mg tablet Take 1-2 tablets by mouth as needed. May repeat in 2 hours if needed collagenase (SANTYL) ointment Apply 1 application to affected area once daily. To leg ulcers till healed ondansetron orally disintegrating (ZOFRAN ODT) 4 mg disintegrating tablet Take 1 tablet by mouth every 8 hours as needed for Nausea/Vomiting. lisinopril (ZESTRIL, PRINIVIL) 10 mg tablet Take 1 tablet by mouth twice daily. As directed fluticasone (FLONASE) 50 mcg/actuation nasal spray Use 2 Sprays in each nostril once daily. mupirocin (BACTROBAN) 2 % ointment APPLY TO AFFECTED AREA ONCE DAILY nadolol (CORGARD) 80 mg tablet Take 2 tablets by mouth once daily. lidocaine (LMX) 4 % cream Apply thin layer to affected area three times a day as needed for pain traMADol (ULTRAM) 50 mg tablet Take 1-2 tablets by mouth every 6 hours as needed for up to 90 days. omeprazole (PRILOSEC) 20 mg capsule TAKE 1 CAPSULE BY MOUTH DAILY busPIRone (BUSPAR) 5 mg tablet Take 15 mg by mouth twice daily. Dose needs clarified with patients pharmacy. oxybutynin ER (DITROPAN XL) 15 mg 24 hr Extended Rel Tab TAKE 1 TABLET BY MOUTH ONCE DAILY. dicyclomine (BENTYL) 20 mg tablet Take 1 tablet by mouth three times daily. valACYclovir (VALTREX) 500 mg tablet Take 1 tablet by mouth once daily. divalproex ER (DEPAKOTE ER) 500 mg 24 hr tablet take 1 tablet by mouth daily Omeprazole Magnesium (PRILOSEC OTC) 20 mg tablet Take 1 tablet by mouth daily before breakfast. 1/2 hr before meal. (Patient not taking: Reported on 07/03/2018 ) gabapentin (NEURONTIN) 600 mg tablet TAKE 2 TABLETS THREE TIMES A DAY hydrocortisone (ANUSOL-HC) 2.5 % rectal cream 1 application by RECTAL route twice daily. As directed blood sugar diagnostic (BLOOD GLUCOSE TEST) test strip Test blood sugar(s) 3 times daily. Dx: Type 2 DM - Uncontrolled E11.65 Insulin: No Lancets lancets Test blood sugar(s) 3 times daily. Dx: Type 2 DM - Uncontrolled E11.65 Insulin: No benzocaine-menthol (CEPACOL) 15-2.6 mg lozg lozenge Take 1 Lozenge by mouth every 3 hours as needed. (Patient not taking: Reported on 06/07/2018 ) diazePAM (VALIUM) 5 mg tablet Take 10 mg by mouth once daily as needed for Anxiety. triamcinolone acetonide (KENALOG) 0.1 % cream Apply 1 application to affected area twice daily. For itchy lesions for 2 weeks (torso or extremities) as directed mometasone-formoterol (DULERA) 100-5 mcg/actuation inhaler Inhale 2 Puffs as instructed twice daily. albuterol HFA (VENTOLIN HFA) 90 mcg/actuation inhaler Inhale 2 Puffs as instructed every 4 hours as needed for Wheezing/Shortness of Breath. blood sugar diagnostic (FREESTYLE LITE STRIPS) test strip Test blood sugar(s) 3 times daily. Dx: Type 2 DM - Controlled E11.9 Insulin: Yes CPAP Initiate CPAP @ 14 cm of water with humidification. EPR setting of 3. Mask (per patient preference) optional chin strap (if indicated) , filters, tubing, humidifier and lifetime supplies. (Patient not taking: Reported on 08/01/2018 ) COMPOUNDED PRESCRIPTION Nebulizer for home use. Diagnosis: Asthma exacerbation QUEtiapine (SEROQUEL) 300 mg tablet Take 1 tablet by mouth daily at bedtime. Also takes [address] Patterson. (Patient taking differently: Take 300 mg by mouth daily at bedtime. ) No current facility-administered medications for this visit. GLYCEMIC CONTROL: ? SMBG?s: reports majority of BGs are in 200s (nothing below); FBG today 238; checks before meals and HS ? Hypoglycemia: none Objective: VITALS: BP 136/78 Pulse 63 Resp 24 Last 3 Encounter BP Readings: Date: BP: 08/01/2018 122/84 07/17/2018 120/76 07/03/2018 112/70 Wt: 147 kg (324 lb) BMI: 53.92 kg/(m2) LABS Lab Results Component Value Date HBA1C 9.1 07/03/2018 HBA1C 7.6 03/01/2018 HBA1C 7.0 09/28/2017 HBA1C 7.4 05/11/2017 CMP: Glucose 179 03/01/2018 BUN 14 03/01/2018 Creatinine 0.84 03/01/2018 Sodium 138 03/01/2018 Potassium 4.1 03/01/2018 Chloride 100 03/01/2018 CO2 23 03/01/2018 Protein, Total 7.2 03/01/2018 Albumin 4.0 03/01/2018 Calcium 8.7 03/01/2018 Alkaline Phosphatase 54 03/01/2018 Bilirubin, Total 0.3 03/01/2018 AST 25 03/01/2018 ALT 21 03/01/2018 Estimated Creatinine Clearance: 112.4 mL/min (based on SCr of 0.84 mg/dL). Last Lipid Panel Lab Results Component Value Date CHOL 113 09/28/2017 Lab Results Component Value Date HDL 31 09/28/2017 Lab Results Component Value Date LDL 59 09/28/2017 Lab Results Component Value Date TG 114 09/28/2017 Albumin/Creat Ratio (mg/g) Date Value 05/11/2017 Not calculated ASSESSMENT/PLAN: Uncontrolled type 2 diabetes mellitus with hyperglycemia (HCC) - ICD9: 250.02, ICD10: E11.65 A1c goal <7%; uncontrolled based on last A1c (9.1%); A1c increased drastically and patient unsure of cause; reports adherence with medications; currently on max-dose glimepiride and 10 units basal insulin; not on metformin 2/2 GI intolerance and refuses to retry medication; no concerns for hypoglycemia since all BGs are >200 - will increase basal insulin; patient interested in following with PharmD for DM management - will submit consult to pharmacy; patient may be good candidate for GLP-1 agonist - to address at next appt; also needs refill on test strips; renal fxn and LFTs WNL and appropriate for continued use - INCREASE insulin glargine to 12 units daily - CONTINUE glimepiride 4mg BID - BLOOD SUGAR DIAGNOSTIC STRIPS (refill) - CONSULT TO AMBULATORY CLINIC PHARMACY Many other chronic conditions addressed with f/u PCP visit - see Dr. Lopez' note for detail Patient is scheduled to see PCP today. Patient verbalized understanding of instructions. Dr. Lopez and Chris Howard, PharmD The patient was seen, chart reviewed and I concur with the above evaluation and plan. Reviewed with SMA group management of DM. Encounter Diagnosis ICD-10-CM 1. Uncontrolled type 2 diabetes mellitus with hyperglycemia (HCC) E11.65 blood sugar diagnostic (FREESTYLE LITE STRIPS) test strip CONSULT TO AMBULATORY CLINIC PHARMACY 2. Generalized osteoarthritis M15.9 traMADol (ULTRAM) 50 mg tablet 3. Fibromyalgia M79.7 traMADol (ULTRAM) 50 mg tablet 4. Back strain, sequela S39.012S oxyCODONE-acetaminophen (PERCOCET) 5-325 mg tablet 5. Acute midline low back pain without sciatica M54.5 oxyCODONE-acetaminophen (PERCOCET) 5-325 mg tablet 6. Ulcer of leg, chronic, left, limited to breakdown of skin (HCC) L97.921 oxyCODONE-acetaminophen (PERCOCET) 5-325 mg tablet 7. Infected ulcer of skin, limited to breakdown of skin (HCC) L98.491 oxyCODONE-acetaminophen (PERCOCET) 5-325 mg tablet L08.9 looks like infection being prevented by doxy for COPD exac Above issues addressed with patient--DM during SMA and most of the other issues 1 on . Patient involved in shared decision making for management of medical issues. History and medications reviewed. Epic updated as needed Refills taken care of and meds adjusted as indicated after reviewed history, exam and labs. Health Maintenance reviewed. Updated record and/or ordered tests as recorded. Encouraged on efforts at healthy diet and regular exercise and adequate sleep. Stable with pain control. No signs of diversion or abuse of medication(s); no adverse effects. Continue present management. PDMP website checked and validated. All prescriptions have been APPROPRIATELY filled. No suspicious activity was identified. 09/02/2018 by MD Terrie Smith MD Liza D Talampas, MD 09/02/2018 3:42 PM Signed Left leg--noted 2 spots--smaller ulcer healing well with pink base. Leager one about 1cm diameter with some yellow dried slough. No bright red areas or signs of fluctuance. Has Santyl to use. Also using bactroban. PDMP website checked and validated. All prescriptions have been APPROPRIATELY filled. No suspicious activity was identified. 08/16/2018 by MD Hansa Smith, RN, RN 08/17/2018 6:55 PM Signed Patient called to report that pharmacy did not receive prescription that were escripted by office yesterday. The following medications were ordered by Dr. Lopez 08/16/2018. The prescription(s) were phoned to [facility], by Hansa Arzate, RN. I spoke with Perla in the pharmacy. Signed Prescriptions Disp Refills insulin glargine (BASAGLAR KWIKPEN U-100 INSULIN) 100 unit/mL (3 mL) inpn 5 Pen 5 Sig: Inject 12 Units subcutaneously every morning. blood sugar diagnostic (FREESTYLE LITE STRIPS) test strip 150 Strip 11 Sig: Test blood sugar(s) 4 times daily. Dx: Type 2 DM - Unontrolled E11.65 Insulin: Yes BOB: No Referring Provider: SELF [[id number]] Allergies As of Date: 08/16/2018 Noted Allergy Reaction NIA (FEXOFENADINE HCL) 01/25/2006 12 - Shortness of Breath ANCEF (CEFAZOLIN SODIUM) 01/25/2006 4 - Hives CLINDAMYCIN 01/05/2007 6 - Diarrhea duoderm [Other] 05/21/2007 Comments: severe burning pain at point of contact. No redness. ELAVIL (AMITRIPTYLINE) 04/27/2007 Comments: hallucinations MACROBID (NITROFURANTOIN MONOHYD/*05/15/2007 4 - Hives NORVASC (AMLODIPINE) 12/11/2008 7 - Swelling VANCOMYCIN 08/01/2018 7 - Swelling Comments: legs swell and turn red Date Reviewed: 08/01/2018 Reviewed by: Jeanna ([facility]) - Fully Assessed Primary Visit Diagnosis:Uncontrolled type 2 diabetes mellitus with hyperglycemia (HCC) [E11.65] Other Visit Diagnoses:Generalized osteoarthritis [M15.9] Fibromyalgia [M79.7] Back strain, sequela [S39.012S] Acute midline low back pain without sciatica [M54.5] Ulcer of leg, chronic, left, limited to breakdown of skin (HCC) [L97.921] Infected ulcer of skin, limited to breakdown of skin (HCC) [L98.491, L08.9] Comment:looks like infection being prevented by doxy for COPD exac Order(s):traMADol (ULTRAM) 50 mg tabletTake 1-2 tablets by mouth every 6 hours as needed for up to 90 days.Disp: 120 tabletRfl: 2 ondansetron orally disintegrating (ZOFRAN ODT) 4 mg disintegrating tabletTake 1 tablet by mouth every 8 hours as needed.Disp: 12 tabletRfl: 2 insulin glargine (BASAGLAR KWIKPEN U-100 INSULIN) 100 unit/mL (3 mL) inpnInject 12 Units subcutaneously every morning.Disp: 5 PenRfl: 5 Insulin Thom[place]ons, Disposable, (BD ULTRA-FINE EMILY PEN NEEDLE) 32 gauge x 5/32 ndleUse one needle for each dose. 1/day with Glargine.Disp: 100 EachRfl: 5 [] oxyCODONE-acetaminophen (PERCOCET) 5-325 mg tabletTake 1 tablet by mouth three times daily as needed for up to 7 days. Recurrent leg ulcerDisp: 21 tabletRfl: 0 blood sugar diagnostic (FREESTYLE LITE STRIPS) test stripTest blood sugar(s) 4 times daily. Dx: Type 2 DM - Unontrolled E11.65 Insulin: YesDisp: 150 StripRfl: 11 CONSULT TO AMBULATORY CLINIC PHARMACY [20000126] Order #: [id number]: 1 Prescriptions as of 08/16/2018 Sig: TRAMADOL 50 MG TABLET Take 1-2 tablets by mouth nathalie* ONDANSETRON 4 MG DISINTEGRATI* Take 1 tablet by mouth every * INSULIN GLARGINE (U-100) 100 * Inject 12 Units subcutaneousl* PEN NEEDLE, DIABETIC 32 GAUGE* Use one needle for each dose.* OXYCODONE-ACETAMINOPHEN 5 MG-* Take 1 tablet by mouth three * BLOOD SUGAR DIAGNOSTIC STRIPS Test blood sugar(s) 4 times d* GLIMEPIRIDE 2 MG TABLET TAKE 2 TABLETS BY MOUTH TWICE* BUPROPION XL 300 MG 24 HR TAB Take 300 mg by mouth once josé* BENZONATATE 100 MG CAPSULE Take 2 capsules by mouth thre* VALACYCLOVIR 500 MG TABLET TAKE 1 TABLET BY MOUTH DAILY PROMETHAZINE 25 MG TABLET Take 1 tablet by mouth every * ORPHENADRINE CITRATE ER 100 M* Take 1 tablet by mouth twice * FLUCONAZOLE 150 MG TABLET 1 tablet today and repeat in * RIZATRIPTAN 5 MG TABLET Take 1-2 tablets by mouth as * COLLAGENASE CLOSTRIDIUM HISTO* Apply 1 application to affect* LISINOPRIL 10 MG TABLET Take 1 tablet by mouth twice * FLUTICASONE 50 MCG/ACTUATION * Use 2 Sprays in each nostril * MUPIROCIN 2 % TOPICAL OINTMENT APPLY TO AFFECTED AREA ONCE D* NADOLOL 80 MG TABLET Take 2 tablets by mouth once * LIDOCAINE 4 % TOPICAL CREAM Apply thin layer to affected * OMEPRAZOLE 20 MG CAPSULE,MELINDA* TAKE 1 CAPSULE BY MOUTH DAILY BUSPIRONE 5 MG TABLET Take 15 mg by mouth twice josé* OXYBUTYNIN CHLORIDE ER 15 MG * TAKE 1 TABLET BY MOUTH ONCE D* DICYCLOMINE 20 MG TABLET Take 1 tablet by mouth three * DIVALPROEX ER 500 MG TABLET,E* take 1 tablet by mouth daily OMEPRAZOLE MAGNESIUM 20 MG TA* Take 1 tablet by mouth daily * Patient not taking: Reported on 07/03/2018 GABAPENTIN 600 MG TABLET TAKE 2 TABLETS THREE TIMES A * HYDROCORTISONE 2.5 % TOPICAL * 1 application by RECTAL route* LANCETS Test blood sugar(s) 3 times d* BENZOCAINE-MENTHOL 15 MG-2.6 * Take 1 Lozenge by mouth every* Patient not taking: Reported on 06/07/2018 DIAZEPAM 5 MG TABLET Take 10 mg by mouth once kala* TRIAMCINOLONE ACETONIDE 0.1 %* Apply 1 application to affect* MOMETASONE-FORMOTEROL HFA 100* Inhale 2 Puffs as instructed * ALBUTEROL SULFATE HFA 90 MCG/* Inhale 2 Puffs as instructed * CPAP Initiate CPAP @ 14 cm of wate* Patient not taking: Reported on 08/01/2018 COMPOUNDED PRESCRIPTION Nebulizer for home use. Diagn* QUETIAPINE 300 MG TABLET Take 1 tablet by mouth daily * Patient taking differently: Take 300 mg by mouth daily at* Problem List As Of Date 08/16/2018 Noted Resolved ESOPHAGEAL REFLUX [K21.9] More... Unspecified asthma(493.90) [J45.909] 06/02/2017 More... 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 Unspecified vitamin D deficiency [E55.9] INVALID FOR*02/27/2013 GENITAL HERPES NEC [A60.00] INVALID FOR* URGE AND STRESS MIXED INCONTINENCE [N39.46] INVALID FOR* LACERATION -NOT COMPLICATED BREAST [S21.009A] INVALID FOR*02/27/2013 Diabetes (HCC) [E11.9] INVALID FOR* Enthesopathy of unspecified site [M77.9] INVALID FOR*02/27/2013 Adenopathy, Hilar [R59.0] INVALID FOR* Major depressive disorder, recurrent episode (H*INVALID FOR* Abnormal mammogram, unspecified [R92.8] INVALID FOR*06/02/2017 Wound, open, breast [S21.009A] INVALID FOR*02/27/2013 Benign neoplasm of skin of lower limb, includin*INVALID FOR*02/27/2013 Umbilical hernia without mention of obstruction*INVALID FOR*06/02/2017 Ventral hernia, unspecified, without mention of*INVALID FOR*06/02/2017 Anxiety [F41.9] INVALID FOR* Vitamin d deficiency [E55.9] INVALID FOR* Urge incontinence of urine [N39.41] INVALID FOR*06/02/2017 Pain of left lower leg [M79.662] INVALID FOR* Carpal tunnel syndrome of right wrist [G56.01] INVALID FOR*06/02/2017 Morbid obesity with BMI of 45.0-49.9, adult (HC* ABRAM (obstructive sleep apnea) [G47.33] INVALID FOR* More... Left carpal tunnel syndrome [G56.02] INVALID FOR*06/02/2017 Asthma with COPD with exacerbation (HCC) [J44.1*INVALID FOR* HTN (hypertension) [I10] INVALID FOR* Ganglion cyst of finger of right hand [M67.441] INVALID FOR* More... Visit Notes: >> Hansa (Tootie) TOOTIE Arzate MonAug 17, 2018 6:44 PM Status: Signed Patient called to report that pharmacy did not receive prescription that were escripted by office yesterday. The following medications were ordered by Dr. Lopez 08/16/2018. The prescription(s) were phoned to [facility], by Hansa Arzate RN. I spoke with Perla in the pharmacy. Signed Prescriptions Disp Refills insulin glargine (BASAGLAR KWIKPEN U-100 INSULIN) 100 unit/mL (3 mL) inpn 5 Pen 5 Sig: Inject 12 Units subcutaneously every morning. blood sugar diagnostic (FREESTYLE LITE STRIPS) test strip 150 Strip 11 Sig: Test blood sugar(s) 4 times daily. Dx: Type 2 DM - Unontrolled E11.65 Insulin: Yes BOB: No Prescriptions ordered this encounter Disp Refills Start End TRAMADOL 50 MG TABLET 120 * 2 09/01/2018 11/30/2018 Class: Print RX Route: ORAL Sig: Take 1-2 tablets by mouth every 6 hours as needed for up to 90 days. ONDANSETRON 4 MG DISINTEGRATING TABL* 12 t* 2 08/16/2018 Route: ORAL Sig: Take 1 tablet by mouth every 8 hours as needed. INSULIN GLARGINE (U-100) 100 UNIT/ML* 5 Pen 5 08/16/2018 Class: Med Update Route: SUBCUTANEOUS Sig: Inject 12 Units subcutaneously every morning. PEN NEEDLE, DIABETIC 32 GAUGE X 5/32 100 * 5 08/16/2018 Sig: Use one needle for each dose. 1/day with Glargine. OXYCODONE-ACETAMINOPHEN 5 MG-325 MG * 21 t* 0 08/16/2018 08/23/2018 Class: Print RX Route: ORAL Sig: Take 1 tablet by mouth three times daily as needed for up to 7 days. Recurrent leg ulcer BLOOD SUGAR DIAGNOSTIC STRIPS 150 * 11 08/16/2018 Sig: Test blood sugar(s) 4 times daily. Dx: Type 2 DM - Unontrolled E11.65 Insulin: Yes Medications Discontinued During This Encounter traMADol (ULTRAM) 50 mg tablet 120 * 2 06/02/2018 08/16/2018 Class: Print RX Cmt: Each RX of 120 pills is for 30 day supply; this RX with 2 RF should last 90 days.[facility] has correct info that filled for 30 days supply with 2 RF but her bottle says no refills. Route: ORAL Sig: Take 1-2 tablets by mouth every 6 hours as needed for up to 90 days. Disc: Reason for discontinue is not on file. valACYclovir (VALTREX) 500 mg tablet 30 t* 5 01/12/2018 08/16/2018 Route: ORAL Sig: Take 1 tablet by mouth once daily. Disc: Reason for discontinue is not on file. ondansetron orally disintegrating (Z* 12 t* 2 07/03/2018 08/16/2018 Route: ORAL Sig: Take 1 tablet by mouth every 8 hours as needed for Nausea/Vomiting. Disc: Reason for discontinue is not on file. ondansetron orally disintegrating (Z* 12 t* 2 07/04/2018 08/16/2018 Sig: take 1 tablet by mouth every 8 hours if needed for nausea and vomiting Disc: Reason for discontinue is not on file. insulin glargine,hum.rec.anlog (BASA* 08/16/2018 Class: Historical Med Route: SUBCUTANEOUS Sig: Inject subcutaneously. Disc: Reason for discontinue is not on file. oxyCODONE-acetaminophen (PERCOCET) 5* 21 t* 0 07/03/2018 08/16/2018 Class: Print RX Route: ORAL Sig: Take 1 tablet by mouth three times daily as needed for up to 7 days. Disc: Reason for discontinue is not on file. blood sugar diagnostic (BLOOD GLUCOS* 50 S* 11 08/28/2017 08/16/2018 Sig: Test blood sugar(s) 3 times daily. Dx: Type 2 DM - Uncontrolled E11.65 Insulin: No Disc: Reason for discontinue is not on file. blood sugar diagnostic (FREESTYLE LI* 100 * 11 12/17/2015 08/16/2018 Sig: Test blood sugar(s) 3 times daily. Dx: Type 2 DM - Controlled E11.9 Insulin: Yes Disc: Reason for discontinue is not on file. Disposition: Return for has appointments scheduled. Follow-up and Disposition History Recorded Encounter Status:Closed by TERRIE LOPEZ MD on 09/02/18 GROUP A STREP BY Collected: 08/01/2018 Status: F Source: [place] PCR 3:03 PM [facility] REPOSITORY TYPE CODE TESTS RESULT OUT OF REFERENCE UNITS RANGE LAB [facility] Throat Swab GAS Specimen Source LAB PCRGAS Negative for Group A Strep Group A PCR Streptococcus by PCR. Result Comment: This test was developed and its performance characteristics determined by [facility] ([facility]). It has not been cleared or approved by the FDA. [facility] is regulated under CLIA as qualified to perform high-complexity testing. This test is used for clinical purposes. It should not be regarded as inv estigational or for research. Performed By: #### [facility] #### [facility] [address] [place], [place] [address] PROGRESS Observed: 08/01/2018 Status: COMPLETED Source: [place] 2:41 PM [facility] REPOSITORY HNO ID: [id number] Author: Jeanna (Cherie) Service: (none) Author Type: Nurse Practitioner Type: Progress Notes Filed: 08/01/2018 3:34 PM Note Text: Subjective HPI HPI Edel Lang is a 52 year old female who presents today for CC of cough, ear pain, sore throat. This started 2-3 days. Has tried otc medications without relief. Symptoms are worsened by nothing. 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 Nonsmoker. PAST MEDICAL HISTORY Diagnosis Date - FIBROMYALGIA - Cellulitis and abscess of unspecified site 11/26 right leg - Depressive disorder, not elsewhere classified - Dysmetabolic syndrome X 08/09/2006 - Esophageal reflux Gastroesophageal reflux - Generalized anxiety disorder - Hx of cystoscopy 09/11/2017 - Localized osteoarthrosis not specified whether primary or secondary, other specified sites bilateral knees - Morbid obesity with BMI of 50.0-59.9, adult (HCC) - Other genital herpes 08/09/2006 - Type II or unspecified type diabetes mellitus without mention of complication, not stated as uncontrolled - Unspecified asthma(493.90) - Unspecified essential hypertension Essential hypertension - Whooping cough, unspecified organism 11/26 PAST SURGICAL HISTORY Procedure Laterality Date - DELIVERY ONLY 1993 , low cervical - COLONOSCOP W/ OR W/O [facility] SPEC 03/24/2005 Colonoscopy - KNEE SCOPE,DIAGNOSTIC 2002 Arthroscopy, knee-right - KNEE SCOPE,DIAGNOSTIC 2003 Arthroscopy, knee-left - PAST SURGICAL HISTORY OF 1997 uterus out as well as cervix - PAST SURGICAL HISTORY OF 03/29/11 Excision of Rt lower leg lesion - PAST SURGICAL HISTORY OF 07/2014 cardiac cath - REMOVAL OF OVARY(S) 1999 Oophorectom bilateral - REMOVAL OF TONSILS,<10 Y/O 1967 Tonsillectomy - REPAIR INCISIONAL HERNIA,JUANA 05/11/11 with large ventralex mesh - REVISE MEDIAN N/CARPAL TUNNEL SURG 05-16-14 Carpal tunnel decomp right and excision ganglion righ thumb - REVISE MEDIAN N/CARPAL TUNNEL SURG Left 09/09/2015 Carpal tunnel decomp left - SKIN SUB GRAFT LEG 2012 left LE ALLERGIES Nia [Fexofenadine Hcl]; Ancef [Cefazolin Sodium]; Clindamycin; Duoderm [Other]; Elavil [Amitriptyline]; Macrobid [Nitrofurantoin Monohyd/M-Cryst]; Norvasc [Amlodipine]; Vancomycin MEDICATIONS buPROPion XL (WELLBUTRIN XL) 300 mg 24 hr tablet Take 300 mg by mouth once daily. 450mg daily valACYclovir (VALTREX) 500 mg tablet TAKE 1 TABLET BY MOUTH DAILY promethazine (PHENERGAN) 25 mg tablet Take 1 tablet by mouth every 6 hours as needed. orphenadrine ER (NORFLEX) 100 mg tablet Take 1 tablet by mouth twice daily as needed for Muscle Spasm. fluconazole (DIFLUCAN) 150 mg tablet 1 tablet today and repeat in 72 hours rizatriptan (MAXALT) 5 mg tablet Take 1-2 tablets by mouth as needed. May repeat in 2 hours if needed collagenase (SANTYL) ointment Apply 1 application to affected area once daily. To leg ulcers till healed ondansetron orally disintegrating (ZOFRAN ODT) 4 mg disintegrating tablet Take 1 tablet by mouth every 8 hours as needed for Nausea/Vomiting. lisinopril (ZESTRIL, PRINIVIL) 10 mg tablet Take 1 tablet by mouth twice daily. As directed fluticasone (FLONASE) 50 mcg/actuation nasal spray Use 2 Sprays in each nostril once daily. mupirocin (BACTROBAN) 2 % ointment APPLY TO AFFECTED AREA ONCE DAILY nadolol (CORGARD) 80 mg tablet Take 2 tablets by mouth once daily. lidocaine (LMX) 4 % cream Apply thin layer to affected area three times a day as needed for pain traMADol (ULTRAM) 50 mg tablet Take 1-2 tablets by mouth every 6 hours as needed for up to 90 days. omeprazole (PRILOSEC) 20 mg capsule TAKE 1 CAPSULE BY MOUTH DAILY busPIRone (BUSPAR) 5 mg tablet Take 15 mg by mouth twice daily. Dose needs clarified with patients pharmacy. oxybutynin ER (DITROPAN XL) 15 mg 24 hr Extended Rel Tab TAKE 1 TABLET BY MOUTH ONCE DAILY. dicyclomine (BENTYL) 20 mg tablet Take 1 tablet by mouth three times daily. valACYclovir (VALTREX) 500 mg tablet Take 1 tablet by mouth once daily. divalproex ER (DEPAKOTE ER) 500 mg 24 hr tablet take 1 tablet by mouth daily guaiFENesin (MUCINEX) 600 mg 12 hr tablet Take 2 tablets by mouth twice daily as needed. gabapentin (NEURONTIN) 600 mg tablet TAKE 2 TABLETS THREE TIMES A DAY hydrocortisone (ANUSOL-HC) 2.5 % rectal cream 1 application by RECTAL route twice daily. As directed blood sugar diagnostic (BLOOD GLUCOSE TEST) test strip Test blood sugar(s) 3 times daily. Dx: Type 2 DM - Uncontrolled E11.65 Insulin: No glimepiride (AMARYL) 2 mg tablet Take 2 tablets by mouth twice daily with meals. As directed Lancets lancets Test blood sugar(s) 3 times daily. Dx: Type 2 DM - Uncontrolled E11.65 Insulin: No diazePAM (VALIUM) 5 mg tablet Take 10 mg by mouth once daily as needed for Anxiety. triamcinolone acetonide (KENALOG) 0.1 % cream Apply 1 application to affected area twice daily. For itchy lesions for 2 weeks (torso or extremities) as directed mometasone-formoterol (DULERA) 100-5 mcg/actuation inhaler Inhale 2 Puffs as instructed twice daily. blood sugar diagnostic (FREESTYLE LITE STRIPS) test strip Test blood sugar(s) 3 times daily. Dx: Type 2 DM - Controlled E11.9 Insulin: Yes COMPOUNDED PRESCRIPTION Nebulizer for home use. Diagnosis: Asthma exacerbation QUEtiapine (SEROQUEL) 300 mg tablet Take 1 tablet by mouth daily at bedtime. Also takes [address] Patterson. ondansetron orally disintegrating (ZOFRAN ODT) 4 mg disintegrating tablet take 1 tablet by mouth every 8 hours if needed for nausea and vomiting Benzonatate 200 mg capsule Take 1 capsule by mouth three times daily as needed. Omeprazole Magnesium (PRILOSEC OTC) 20 mg tablet Take 1 tablet by mouth daily before breakfast. 1/2 hr before meal. benzocaine-menthol (CEPACOL) 15-2.6 mg lozg lozenge Take 1 Lozenge by mouth every 3 hours as needed. albuterol HFA (VENTOLIN HFA) 90 mcg/actuation inhaler Inhale 2 Puffs as instructed every 4 hours as needed for Wheezing/Shortness of Breath. CPAP Initiate CPAP @ 14 cm of water with humidification. EPR setting of 3. Mask (per patient preference) optional chin strap (if indicated) , filters, tubing, humidifier and lifetime supplies. FAMILY HISTORY Problem Relation Age of Onset - Diabetes Mother - Hypertension Mother - Psychiatry Mother severe depression, bipolar - Asthma Mother - Arthritis Mother rheumatoid arthritis - other (fibromyalgia) Mother - Hypertension Father - Stroke Father - other (traumatic brain injury) Father - Alzheimer's Disease Maternal Grandmother - Hypertension Maternal Grandfather - Stroke Maternal Grandfather - other (parkinsons) Maternal Grandfather - Stroke Paternal Grandmother 8 - Hypertension Paternal Grandmother - Seizures Son - other (schizo - affective) Son - other (autism) Son - other (partial agenesis of corpus collosm) Son - other (depression) Son Social History Substance Use Topics - Smoking status: Never Smoker - Smokeless tobacco: Never Used - Alcohol use No Comment: recovering alcoholic-quit 1985 Review of Systems Constitutional: Negative for chills, fever and weight loss. HENT: Positive for congestion, ear pain and sore throat. Negative for nosebleeds. Respiratory: Positive for cough. Negative for shortness of breath and wheezing. Musculoskeletal: Negative for neck pain. Objective Blood pressure 122/84, pulse 78, temperature 37.1 ?C (98.7 ?F), temperature source Tympanic, resp. rate 16, weight (!) 147 kg (324 lb). Physical Exam Constitutional: She is oriented to person, place, and time and well-developed, well-nourished, and in no distress. Non-toxic appearance. She does not have a sickly appearance. No distress. HENT: Head: Normocephalic and atraumatic. Right Ear: Hearing, tympanic membrane, external ear and ear canal normal. Left Ear: Hearing, tympanic membrane, external ear and ear canal normal. Nose: Nose normal. Mouth/Throat: Uvula is midline, oropharynx is clear and moist and mucous membranes are normal. Eyes: Pupils are equal, round, and reactive to light. Conjunctivae and lids are normal. Right eye exhibits no discharge. Left eye exhibits no discharge. No scleral icterus. Neck: Trachea normal and normal range of motion. Neck supple. Cardiovascular: Normal rate, regular rhythm and normal heart sounds. Pulmonary/Chest: Effort normal. She has wheezes (fine scattered). Persistent cough during exam After nebulizer treatment - lungs clear, cough improved Lymphadenopathy: She has no cervical adenopathy. Neurological: She is alert and oriented to person, place, and time. Skin: No rash noted. She is not diaphoretic. ASSESSMENT/PLAN: 1. Bronchitis - ICD9: 490, ICD10: J40 (primary diagnosis) -discussed likely viral at this time, continue inhalers at home, concerns with risk factors of DM, COPD, Asthma, morbid obesity. -hold doxy, if symptoms worsen fill - Discussed supportive care, given educational handout - Limit exposure to smoke and other inhaled irritants - Discussed possible red flags and when to seek medical attention - Follow up in 3-5 days or sooner if no better or worse -If you experience chest pain/shortness of breath go to ER - BENZONATATE 100 MG CAPSULE - DOXYCYCLINE MONOHYDRATE 100 MG TABLET 2. Sore throat - ICD9: 462, ICD10: J02.9 - suspect viral at this time - Rapid Strep negative in the office today and Throat culture pending - Discussed supportive care treatment with fluids, rest and analgesia. - The patient should follow up in 3-5 days if symptoms persist or worsen - Call back if drooling, increased temperature, symptoms of dehydration and/or still sick in one week - GROUP A STREPTOCOCCUS BY PCR - RAPID STREP TEST B/O 3. Wheeze - ICD9: 786.07, ICD10: R06.2 -resolved with albuterol - ALBUTEROL SULFATE 2.5 MG/3 ML (0.083 %) SOLUTION FOR NEBULIZATION Prescription instructions reviewed with patient as applicable. Patient advised if symptoms do not improve or if symptoms worsen sooner, to contact the office for further evaluation by their primary care physician. Potential red flag symptoms discussed with the patient. Reviewed appropriate action plan to take if red flag symptoms occur. Patient agreeable to treatment plan. Jeanna Sandra APRN.CATH LAB RADIOLOGICAL TECHNOLOGIST CNOV Observed: 08/01/2018 Status: COMPLETED Source: [place] 2:30 PM [facility] REPOSITORY Office Visit (WSTR) EDEL LANG ([id number]) 1965 F Date Time Provider Department 08/01/18 2:30 PM JEANNA SANDRA (CATH LAB RADIOLOGICAL TECHNOLOGIST) [facility] During your visit today, we recorded the following information about you: Temperature Pulse Respiration Blood pressure 98.7 degrees 78/minute 16/minute 122/84 Weight 147 kg Jeanna Sandra APRN.CNP 08/01/2018 3:34 PM Signed Subjective HPI HPI Edel Lang is a 52 year old female who presents today for CC of cough, ear pain, sore throat. This started 2-3 days. Has tried otc medications without relief. Symptoms are worsened by nothing. 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 Nonsmoker. PAST MEDICAL HISTORY Diagnosis Date - FIBROMYALGIA - Cellulitis and abscess of unspecified site 11/26 right leg - Depressive disorder, not elsewhere classified - Dysmetabolic syndrome X 08/09/2006 - Esophageal reflux Gastroesophageal reflux - Generalized anxiety disorder - Hx of cystoscopy 09/11/2017 - Localized osteoarthrosis not specified whether primary or secondary, other specified sites bilateral knees - Morbid obesity with BMI of 50.0-59.9, adult (HCC) - Other genital herpes 08/09/2006 - Type II or unspecified type diabetes mellitus without mention of complication, not stated as uncontrolled - Unspecified asthma(493.90) - Unspecified essential hypertension Essential hypertension - Whooping cough, unspecified organism 11/26 PAST SURGICAL HISTORY Procedure Laterality Date - DELIVERY ONLY 1993 , low cervical - COLONOSCOP W/ OR W/O [facility] SPEC 03/24/2005 Colonoscopy - KNEE SCOPE,DIAGNOSTIC 2002 Arthroscopy, knee-right - KNEE SCOPE,DIAGNOSTIC 2003 Arthroscopy, knee-left - PAST SURGICAL HISTORY OF 1997 uterus out as well as cervix - PAST SURGICAL HISTORY OF 03/29/11 Excision of Rt lower leg lesion - PAST SURGICAL HISTORY OF 07/2014 cardiac cath - REMOVAL OF OVARY(S) 1999 Oophorectom bilateral - REMOVAL OF TONSILS,<10 Y/O 1967 Tonsillectomy - REPAIR INCISIONAL HERNIA,JUANA 05/11/11 with large ventralex mesh - REVISE MEDIAN N/CARPAL TUNNEL SURG 05-16-14 Carpal tunnel decomp right and excision ganglion righ thumb - REVISE MEDIAN N/CARPAL TUNNEL SURG Left 09/09/2015 Carpal tunnel decomp left - SKIN SUB GRAFT LEG 2012 left LE ALLERGIES Nia [Fexofenadine Hcl]; Ancef [Cefazolin Sodium]; Clindamycin; Duoderm [Other]; Elavil [Amitriptyline]; Macrobid [Nitrofurantoin Monohyd/M-Cryst]; Norvasc [Amlodipine]; Vancomycin MEDICATIONS buPROPion XL (WELLBUTRIN XL) 300 mg 24 hr tablet Take 300 mg by mouth once daily. 450mg daily valACYclovir (VALTREX) 500 mg tablet TAKE 1 TABLET BY MOUTH DAILY promethazine (PHENERGAN) 25 mg tablet Take 1 tablet by mouth every 6 hours as needed. orphenadrine ER (NORFLEX) 100 mg tablet Take 1 tablet by mouth twice daily as needed for Muscle Spasm. fluconazole (DIFLUCAN) 150 mg tablet 1 tablet today and repeat in 72 hours rizatriptan (MAXALT) 5 mg tablet Take 1-2 tablets by mouth as needed. May repeat in 2 hours if needed collagenase (SANTYL) ointment Apply 1 application to affected area once daily. To leg ulcers till healed ondansetron orally disintegrating (ZOFRAN ODT) 4 mg disintegrating tablet Take 1 tablet by mouth every 8 hours as needed for Nausea/Vomiting. lisinopril (ZESTRIL, PRINIVIL) 10 mg tablet Take 1 tablet by mouth twice daily. As directed fluticasone (FLONASE) 50 mcg/actuation nasal spray Use 2 Sprays in each nostril once daily. mupirocin (BACTROBAN) 2 % ointment APPLY TO AFFECTED AREA ONCE DAILY nadolol (CORGARD) 80 mg tablet Take 2 tablets by mouth once daily. lidocaine (LMX) 4 % cream Apply thin layer to affected area three times a day as needed for pain traMADol (ULTRAM) 50 mg tablet Take 1-2 tablets by mouth every 6 hours as needed for up to 90 days. omeprazole (PRILOSEC) 20 mg capsule TAKE 1 CAPSULE BY MOUTH DAILY busPIRone (BUSPAR) 5 mg tablet Take 15 mg by mouth twice daily. Dose needs clarified with patients pharmacy. oxybutynin ER (DITROPAN XL) 15 mg 24 hr Extended Rel Tab TAKE 1 TABLET BY MOUTH ONCE DAILY. dicyclomine (BENTYL) 20 mg tablet Take 1 tablet by mouth three times daily. valACYclovir (VALTREX) 500 mg tablet Take 1 tablet by mouth once daily. divalproex ER (DEPAKOTE ER) 500 mg 24 hr tablet take 1 tablet by mouth daily guaiFENesin (MUCINEX) 600 mg 12 hr tablet Take 2 tablets by mouth twice daily as needed. gabapentin (NEURONTIN) 600 mg tablet TAKE 2 TABLETS THREE TIMES A DAY hydrocortisone (ANUSOL-HC) 2.5 % rectal cream 1 application by RECTAL route twice daily. As directed blood sugar diagnostic (BLOOD GLUCOSE TEST) test strip Test blood sugar(s) 3 times daily. Dx: Type 2 DM - Uncontrolled E11.65 Insulin: No glimepiride (AMARYL) 2 mg tablet Take 2 tablets by mouth twice daily with meals. As directed Lancets lancets Test blood sugar(s) 3 times daily. Dx: Type 2 DM - Uncontrolled E11.65 Insulin: No diazePAM (VALIUM) 5 mg tablet Take 10 mg by mouth once daily as needed for Anxiety. triamcinolone acetonide (KENALOG) 0.1 % cream Apply 1 application to affected area twice daily. For itchy lesions for 2 weeks (torso or extremities) as directed mometasone-formoterol (DULERA) 100-5 mcg/actuation inhaler Inhale 2 Puffs as instructed twice daily. blood sugar diagnostic (FREESTYLE LITE STRIPS) test strip Test blood sugar(s) 3 times daily. Dx: Type 2 DM - Controlled E11.9 Insulin: Yes COMPOUNDED PRESCRIPTION Nebulizer for home use. Diagnosis: Asthma exacerbation QUEtiapine (SEROQUEL) 300 mg tablet Take 1 tablet by mouth daily at bedtime. Also takes [address] Patterson. ondansetron orally disintegrating (ZOFRAN ODT) 4 mg disintegrating tablet take 1 tablet by mouth every 8 hours if needed for nausea and vomiting Benzonatate 200 mg capsule Take 1 capsule by mouth three times daily as needed. Omeprazole Magnesium (PRILOSEC OTC) 20 mg tablet Take 1 tablet by mouth daily before breakfast. 1/2 hr before meal. benzocaine-menthol (CEPACOL) 15-2.6 mg lozg lozenge Take 1 Lozenge by mouth every 3 hours as needed. albuterol HFA (VENTOLIN HFA) 90 mcg/actuation inhaler Inhale 2 Puffs as instructed every 4 hours as needed for Wheezing/Shortness of Breath. CPAP Initiate CPAP @ 14 cm of water with humidification. EPR setting of 3. Mask (per patient preference) optional chin strap (if indicated) , filters, tubing, humidifier and lifetime supplies. FAMILY HISTORY Problem Relation Age of Onset - Diabetes Mother - Hypertension Mother - Psychiatry Mother severe depression, bipolar - Asthma Mother - Arthritis Mother rheumatoid arthritis - other (fibromyalgia) Mother - Hypertension Father - Stroke Father - other (traumatic brain injury) Father - Alzheimer's Disease Maternal Grandmother - Hypertension Maternal Grandfather - Stroke Maternal Grandfather - other (parkinsons) Maternal Grandfather - Stroke Paternal Grandmother 8 - Hypertension Paternal Grandmother - Seizures Son - other (schizo - affective) Son - other (autism) Son - other (partial agenesis of corpus collosm) Son - other (depression) Son Social History Substance Use Topics - Smoking status: Never Smoker - Smokeless tobacco: Never Used - Alcohol use No Comment: recovering alcoholic-quit 1985 Review of Systems Constitutional: Negative for chills, fever and weight loss. HENT: Positive for congestion, ear pain and sore throat. Negative for nosebleeds. Respiratory: Positive for cough. Negative for shortness of breath and wheezing. Musculoskeletal: Negative for neck pain. Objective Blood pressure 122/84, pulse 78, temperature 37.1 ?C (98.7 ?F), temperature source Tympanic, resp. rate 16, weight (!) 147 kg (324 lb). Physical Exam Constitutional: She is oriented to person, place, and time and well-developed, well-nourished, and in no distress. Non-toxic appearance. She does not have a sickly appearance. No distress. HENT: Head: Normocephalic and atraumatic. Right Ear: Hearing, tympanic membrane, external ear and ear canal normal. Left Ear: Hearing, tympanic membrane, external ear and ear canal normal. Nose: Nose normal. Mouth/Throat: Uvula is midline, oropharynx is clear and moist and mucous membranes are normal. Eyes: Pupils are equal, round, and reactive to light. Conjunctivae and lids are normal. Right eye exhibits no discharge. Left eye exhibits no discharge. No scleral icterus. Neck: Trachea normal and normal range of motion. Neck supple. Cardiovascular: Normal rate, regular rhythm and normal heart sounds. Pulmonary/Chest: Effort normal. She has wheezes (fine scattered). Persistent cough during exam After nebulizer treatment - lungs clear, cough improved Lymphadenopathy: She has no cervical adenopathy. Neurological: She is alert and oriented to person, place, and time. Skin: No rash noted. She is not diaphoretic. ASSESSMENT/PLAN: 1. Bronchitis - ICD9: 490, ICD10: J40 (primary diagnosis) -discussed likely viral at this time, continue inhalers at home, concerns with risk factors of DM, COPD, Asthma, morbid obesity. -hold doxy, if symptoms worsen fill - Discussed supportive care, given educational handout - Limit exposure to smoke and other inhaled irritants - Discussed possible red flags and when to seek medical attention - Follow up in 3-5 days or sooner if no better or worse -If you experience chest pain/shortness of breath go to ER - BENZONATATE 100 MG CAPSULE - DOXYCYCLINE MONOHYDRATE 100 MG TABLET 2. Sore throat - ICD9: 462, ICD10: J02.9 - suspect viral at this time - Rapid Strep negative in the office today and Throat culture pending - Discussed supportive care treatment with fluids, rest and analgesia. - The patient should follow up in 3-5 days if symptoms persist or worsen - Call back if drooling, increased temperature, symptoms of dehydration and/or still sick in one week - GROUP A STREPTOCOCCUS BY PCR - RAPID STREP TEST B/O 3. Wheeze - ICD9: 786.07, ICD10: R06.2 -resolved with albuterol - ALBUTEROL SULFATE 2.5 MG/3 ML (0.083 %) SOLUTION FOR NEBULIZATION Prescription instructions reviewed with patient as applicable. Patient advised if symptoms do not improve or if symptoms worsen sooner, to contact the office for further evaluation by their primary care physician. Potential red flag symptoms discussed with the patient. Reviewed appropriate action plan to take if red flag symptoms occur. Patient agreeable to treatment plan. Jeanna Sandra APRN.CHERIE Sandra APRN.CNP 08/01/2018 3:23 PM Signed ACUTE BRONCHITIS: You have acute bronchitis. This means the airway passages in your lungs are inflamed. Bronchitis may be caused by viruses or bacteria. Inhaling cigarette smoke will always make it worse. Exposure to irritating chemicals or second hand smoke as well as allergies can contribute to bronchitis. Repeat episodes of bronchitis may cause lifelong lung problems. Acute bronchitis is usually treated with rest, fluids, cough medicine, and possibly antibiotics or inhaled medicine to open up the small airways. It is very important that you avoid smoke and drink increased amounts of fluids. A cool air vaporizer can help thin bronchial secretions. This makes it easier to cough and clear your chest. If you are a cigarette smoker, consider using nicotine gum or skin patches to help you withdraw. Recovery from bronchitis is often slow, but you should start feeling better after 2-3 days of treatment. Please call your doctor or return here if you have any of the following symptoms: - Increased fever, chills, or chest pain. - Severe shortness of breath or bloody sputum. - Do not improve after 3 days of proper treatment. Consuelo Serrano Ma 08/01/2018 3:28 PM Signed 2.5 solution aerosol treatment given per doctor's orders. Prior to treatment O2 Sat is 95%. Treatment completed. O2 sat is 96%. Tolerated well. Consuelo Serrano Ma Referring Provider: SELF [[id number]] Allergies As of Date: 08/01/2018 Noted Allergy Reaction NIA (FEXOFENADINE HCL) 01/25/2006 12 - Shortness of Breath ANCEF (CEFAZOLIN SODIUM) 01/25/2006 4 - Hives CLINDAMYCIN 01/05/2007 6 - Diarrhea duoderm [Other] 05/21/2007 Comments: severe burning pain at point of contact. No redness. ELAVIL (AMITRIPTYLINE) 04/27/2007 Comments: hallucinations MACROBID (NITROFURANTOIN MONOHYD/*05/15/2007 4 - Hives NORVASC (AMLODIPINE) 12/11/2008 7 - Swelling VANCOMYCIN 08/01/2018 7 - Swelling Comments: legs swell and turn red Date Reviewed: 08/01/2018 Reviewed by: Jeanna (Aldo Sandra - Fully Assessed Reason for Visit: Ear Pain [817] Cmt: pressure, head congestion, headache, sore throat x last night Primary Visit Diagnosis:Bronchitis [J40] Other Visit Diagnoses:Sore throat [J02.9] Wheeze [R06.2] Order(s):GROUP A STREPTOCOCCUS BY PCR [SQGASP] Order #: [id number] RAPID STREP TEST B/O [[id number]] Order #: [id number] [] albuterol 2.5 mg /3 mL (0.083 %) 2.5 mg (PROVENTIL)Disp: Rfl: benzonatate (TESSALON PERLE) 100 mg capsuleTake 2 capsules by mouth three times daily as needed.Disp: 30 capsuleRfl: 0 doxycycline monohydrate 100 mg tabletTake 1 tablet by mouth twice daily for 10 days.Disp: 20 tabletRfl: 0 Prescriptions as of 08/01/2018 Sig: BUPROPION XL 300 MG 24 HR TAB Take 300 mg by mouth once josé* ALBERT ROSALES U-100 INSULI* Inject subcutaneously. VALACYCLOVIR 500 MG TABLET TAKE 1 TABLET BY MOUTH DAILY PROMETHAZINE 25 MG TABLET Take 1 tablet by mouth every * ORPHENADRINE CITRATE ER 100 M* Take 1 tablet by mouth twice * FLUCONAZOLE 150 MG TABLET 1 tablet today and repeat in * RIZATRIPTAN 5 MG TABLET Take 1-2 tablets by mouth as * COLLAGENASE CLOSTRIDIUM HISTO* Apply 1 application to affect* ONDANSETRON 4 MG DISINTEGRATI* Take 1 tablet by mouth every * LISINOPRIL 10 MG TABLET Take 1 tablet by mouth twice * FLUTICASONE 50 MCG/ACTUATION * Use 2 Sprays in each nostril * MUPIROCIN 2 % TOPICAL OINTMENT APPLY TO AFFECTED AREA ONCE D* NADOLOL 80 MG TABLET Take 2 tablets by mouth once * LIDOCAINE 4 % TOPICAL CREAM Apply thin layer to affected * TRAMADOL 50 MG TABLET Take 1-2 tablets by mouth nathalie* OMEPRAZOLE 20 MG CAPSULE,MELINDA* TAKE 1 CAPSULE BY MOUTH DAILY BUSPIRONE 5 MG TABLET Take 15 mg by mouth twice josé* OXYBUTYNIN CHLORIDE ER 15 MG * TAKE 1 TABLET BY MOUTH ONCE D* DICYCLOMINE 20 MG TABLET Take 1 tablet by mouth three * VALACYCLOVIR 500 MG TABLET Take 1 tablet by mouth once d* DIVALPROEX ER 500 MG TABLET,E* take 1 tablet by mouth daily GABAPENTIN 600 MG TABLET TAKE 2 TABLETS THREE TIMES A * HYDROCORTISONE 2.5 % TOPICAL * 1 application by RECTAL route* BLOOD SUGAR DIAGNOSTIC STRIPS Test blood sugar(s) 3 times d* GLIMEPIRIDE 2 MG TABLET Take 2 tablets by mouth twice* LANCETS Test blood sugar(s) 3 times d* DIAZEPAM 5 MG TABLET Take 10 mg by mouth once kala* TRIAMCINOLONE ACETONIDE 0.1 %* Apply 1 application to affect* MOMETASONE-FORMOTEROL HFA 100* Inhale 2 Puffs as instructed * BLOOD SUGAR DIAGNOSTIC STRIPS Test blood sugar(s) 3 times d* COMPOUNDED PRESCRIPTION Nebulizer for home use. Diagn* QUETIAPINE 300 MG TABLET Take 1 tablet by mouth daily * Patient taking differently: Take 300 mg by mouth daily at* BENZONATATE 100 MG CAPSULE Take 2 capsules by mouth thre* DOXYCYCLINE MONOHYDRATE 100 M* Take 1 tablet by mouth twice * ONDANSETRON 4 MG DISINTEGRATI* take 1 tablet by mouth every * OMEPRAZOLE MAGNESIUM 20 MG TA* Take 1 tablet by mouth daily * Patient not taking: Reported on 07/03/2018 BENZOCAINE-MENTHOL 15 MG-2.6 * Take 1 Lozenge by mouth every* Patient not taking: Reported on 06/07/2018 ALBUTEROL SULFATE HFA 90 MCG/* Inhale 2 Puffs as instructed * CPAP Initiate CPAP @ 14 cm of wate* Patient not taking: Reported on 08/01/2018 Problem List As Of Date 08/01/2018 Noted Resolved ESOPHAGEAL REFLUX [K21.9] More... Unspecified asthma(493.90) [J45.909] 06/02/2017 More... 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 Unspecified vitamin D deficiency [E55.9] INVALID FOR*02/27/2013 GENITAL HERPES NEC [A60.00] INVALID FOR* URGE AND STRESS MIXED INCONTINENCE [N39.46] INVALID FOR* LACERATION -NOT COMPLICATED BREAST [S21.009A] INVALID FOR*02/27/2013 Diabetes (HCC) [E11.9] INVALID FOR* Enthesopathy of unspecified site [M77.9] INVALID FOR*02/27/2013 Adenopathy, Hilar [R59.0] INVALID FOR* Major depressive disorder, recurrent episode (H*INVALID FOR* Abnormal mammogram, unspecified [R92.8] INVALID FOR*06/02/2017 Wound, open, breast [S21.009A] INVALID FOR*02/27/2013 Benign neoplasm of skin of lower limb, includin*INVALID FOR*02/27/2013 Umbilical hernia without mention of obstruction*INVALID FOR*06/02/2017 Ventral hernia, unspecified, without mention of*INVALID FOR*06/02/2017 Anxiety [F41.9] INVALID FOR* Vitamin d deficiency [E55.9] INVALID FOR* Urge incontinence of urine [N39.41] INVALID FOR*06/02/2017 Pain of left lower leg [M79.662] INVALID FOR* Carpal tunnel syndrome of right wrist [G56.01] INVALID FOR*06/02/2017 Morbid obesity with BMI of 45.0-49.9, adult (HC* ABRAM (obstructive sleep apnea) [G47.33] INVALID FOR* More... Left carpal tunnel syndrome [G56.02] INVALID FOR*06/02/2017 Asthma with COPD with exacerbation (HCC) [J44.1*INVALID FOR* HTN (hypertension) [I10] INVALID FOR* Ganglion cyst of finger of right hand [M67.441] INVALID FOR* More... Other instructions from your clinician: ACUTE BRONCHITIS: You have acute bronchitis. This means the airway passages in your lungs are inflamed. Bronchitis may be caused by viruses or bacteria. Inhaling cigarette smoke will always make it worse. Exposure to irritating chemicals or second hand smoke as well as allergies can contribute to bronchitis. Repeat episodes of bronchitis may cause lifelong lung problems. Acute bronchitis is usually treated with rest, fluids, cough medicine, and possibly antibiotics or inhaled medicine to open up the small airways. It is very important that you avoid smoke and drink increased amounts of fluids. A cool air vaporizer can help thin bronchial secretions. This makes it easier to cough and clear your chest. If you are a cigarette smoker, consider using nicotine gum or skin patches to help you withdraw. Recovery from bronchitis is often slow, but you should start feeling better after 2-3 days of treatment. Please call your doctor or return here if you have any of the following symptoms: - Increased fever, chills, or chest pain. - Severe shortness of breath or bloody sputum. - Do not improve after 3 days of proper treatment. Visit Notes: >> Consuelo Serrano Ma Wed Aug 01, 2018 3:28 PM Status: Signed 2.5 solution aerosol treatment given per doctor's orders. Prior to treatment O2 Sat is 95%. Treatment completed. O2 sat is 96%. Tolerated well. Consuelo Serrano Ma Prescriptions ordered this encounter Disp Refills Start End ALBUTEROL SULFATE 2.5 MG/3 ML (0.083* 08/01/2018 08/01/2018 Route: INHALATION BENZONATATE 100 MG CAPSULE 30 c* 0 08/01/2018 Route: ORAL Sig: Take 2 capsules by mouth three times daily as needed. DOXYCYCLINE MONOHYDRATE 100 MG TABLET 20 t* 0 08/01/2018 08/11/2018 Class: Print RX Cmt: May transfer to [facility] if less expensive. Route: ORAL Sig: Take 1 tablet by mouth twice daily for 10 days. Medications Discontinued During This Encounter guaiFENesin (MUCINEX) 600 mg 12 hr t* 120 * 5 12/01/2017 08/01/2018 Route: ORAL Sig: Take 2 tablets by mouth twice daily as needed. Disc: Reason for discontinue is not on file. Benzonatate 200 mg capsule 30 c* 0 11/26/2017 08/01/2018 Route: ORAL Sig: Take 1 capsule by mouth three times daily as needed. Patient not taking: Reported on 06/07/2018 Disc: Reason for discontinue is not on file. Encounter Status:Closed by JEANNA SANDRA CNP on 08/01/18 ENDOCRINOLOGY VISIT Observed: 07/31/2018 Status: F Source: [facility] REPORT 8:10 PM [facility] REPOSITORY [facility] [address] [place] [address] OFFICE VISIT Date of Service: 07/31/18 MR#: [id number] Acct: [id number] Name: EDEL LANG Rep #: [id number] : 1965 Provider: Danyelle Weber NP Age/Sex: 52/F [place] [facility] [place]: Signed HPI History of present illness Edel Lang is a 52 year old female who presents for consult of diabetes type 2. Diagnosed approx 24 years ago at age 28. currently she reports being on an oral agent but she thinks it is amaryl at a dose of 40 mg twice daily whic I tell her is unlikely. She tries to call her pharmacy [facility] who does not answer. Reports A1c historically in the 6 range but recently in the hospital with resp illness and leg wound as well as HTN. Was given sliding scale insulin three times daily during hospital stay due to elevated readings but returned home on regular medications. Continued on prednisone taper ad reports BG readings 200-400. Last A1c 9.1 Leg woud leg lower extremity below knee remains open with no drainage. Approximately 0.5 cm indiameter x 2 below knee. Has directions to apply topical ointment. At time of visit: -Pt denies symptoms of hypertensive emergency (CP,SOB,AG, or blurred vision) and hypotension(dizziness or lightheadedness) -Pt denies symptoms of hypoglycemia ( sweaty, confusion, anxiety, tremor, hunger, palpitations) and hyperglycemia ( polydipsia, polyuria) -Pt denies potential medication adverse effect. Hypoglycemia Aware of hypoglycemia: When awake Able to self treat low BG: Yes Frequent low Bloo sugar: No Has supply of glucagon: Yes SMBG 200 in am climbs during day 300-400 Checks BG 3-4 times daily Forgot meter Diet 3 meals Follows diabetic diet No cab counting General: Alert, Oriented x3, No apparent distress HEENT: Atraumatic, EOMI, Normocephalic Oral: Moist Mucosa Neck: Supple, thyroid normal but painful to palpation Lungs: Clear to auscultation, Normal air movement, No rhonchi, No wheeze, No rales Cardiovascular: Regular rate, Regular Rhythm, Normal S1, Normal S2, No murmurs Abdomen: Soft, Non Tender, Non-Distended, No Hepato-splenomegaly Extremities: Edema - non-pitting Skin: Ulcer/ Wound - on left tibia, appears healing without drainage, Psych/Mental Status: Normal Affect, Appropriate Type: type 2 Glucose control symptoms: Reports high fasting glucose and high post-meal glucose Cardiopulmonary symptoms: Denies dizziness or chest pain at rest GI symptoms: Reports nausea/dyspepsia (believes due to taking medications at same time); denies increased hunger, constipation, diarrhea or vomiting Other symptoms: Reports blurry vision and depression Pertinent visit history: Reports recent hospital admission Self monitoring: Yes Percentage of fasting blood glucose within goal: <25% of the time Dietary compliance: Diabetes: good Glucose testing: understands testing schedule day education - understands ketone testing: Yes Physical activity: sedentary lifestyle Intake Vital Signs07/31/18 Height 5 ft 5 in 07/31/18 Weight: 328 lb 07/31/18 Body Mass Index (BMI) 54.6 07/31/18 Blood Pressure 134/86 Intake Visit Reasons: Diabetes Chief Complaint: diabetes type 2 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 Required: No Accompanied by: self Is patient in pain?: No Allergies vancomycin Allergy (Severe, Verified 07/31/18 12:34) BURNING RED RASH ON LEGGS cefazolin sodium [From Anc] Allergy (Verified 07/07/18 13:11) Hives Penicillins Allergy (Verified 07/07/18 13:11) Hives Medications Buspirone HCl 20 mg PO TID PRN PRN 03/05/17 [History Confirmed 07/31/18] Gabapentin [Neurontin] 1,200 mg PO TID 03/05/17 [History Confirmed 07/31/18] Nadolol [Corgard (Beta Torin)] 160 mg PO DAILY 03/05/17 [History Confirmed 07/31/18] Oxybutynin Chloride [Ditropan Xl] 15 mg PO QHS 03/05/17 [History Confirmed 07/31/18] Quetiapine Fumarate [Quetiapine Fumarate ER] 50 mg PO DAILY 03/05/17 [History Confirmed 07/31/18] Quetiapine Fumarate [Quetiapine Fumarate ER] 300 mg PO QHS 03/05/17 [History Confirmed 07/31/18] buPROPion XL [Wellbutrin Xl] 300 mg PO DAILY 03/05/17 [History Confirmed 07/31/18] Glimepiride [Amaryl] 40 mg PO BID 03/20/17 [History Confirmed 07/31/18] Lisinopril 20 mg PO QHS 03/20/17 [History Confirmed 07/31/18] divalproex 125 mg capsule,delayed release sprinkle 500 mg PO DAILY 02/18/18 [History Confirmed 07/31/18] omeprazole 10 mg capsule,delayed release 10 mg PO DAILY 02/18/18 [History Confirmed 07/31/18] valacyclovir 1 gram tablet 1,000 mg PO QDAY 02/18/18 [History Confirmed 07/31/18] Diazepam [Valium] 10 mg PO BID PRN PRN 03/11/18 [History Confirmed 07/31/18] Orphenadrine [Norflex] 100 mg PO BID PRN 03/11/18 [History Confirmed 07/31/18] traMADol [Ultram] 100 mg PO Q6H PRN PRN 03/11/18 [History Confirmed 07/31/18] Albuterol Inhaler [Ventolin Hfa] 2 puff INHALATION Q4H PRN PRN 05/29/18 [History Confirmed 07/31/18] Clindamycin [Cleocin] 450 mg PO TID 5 Days #15 cap 07/10/18 [Rx Confirmed 07/31/18] PFSH Medical History Arthritis (Acute) Asthma (Acute) Back pain (Acute) COPD (chronic obstructive pulmonary disease) (Acute) Diabetes (Acute) Fatigue (Acute) Hemorrhoids (Acute) Knee pain (Acute) Migraines (Acute) HTN (hypertension) (Chronic) Surgical History H/O hernia repair (Acute) Hx of section (Acute) Hx of hysterectomy (Acute) Kidney stone (Acute) knee scope (Acute) Family History Other Hypertension Kidney disease Social History Smoking Status: Never smoker ROS Const Constitutional: No body ache, chills, fever(s) or night sweats Eyes Eyes: Positive for blurry vision ENT ENT: Positive for nasal congestion (using flonase); no ear pain, ear discharge, ear pressure or nosebleed/epistaxis Resp Respiratory: No cough or shortness of breath Cardio Cardiology: No chest pain at rest, chest pain with exertion or generalized swelling Gastro GI: Positive for nausea/dyspepsia (believes due to taking medications at same time); no abdominal pain, constipation, diarrhea or vomiting Genitourinary-Female: No difficulty urinating or painful urination Musc Musculoskeletal: No joint pain or muscle cramps Skin Skin: No lesions or rash Neuro Neurology: No dizziness or fainting Psych Psychiatric: Positive for anxiety, Positive for depression Endo Endocrine: No increased thirst/drinking or increased hunger Richardson/Lymp Hematologic/Lymphatic: No easy bleeding or easy bruising Assessment AND Plan 1. Type 2 diabetes mellitus with complication, without long- term current use of insulin E11.8 Plan Patient has destabilized since use of prednisone and her hospitalization. Will start her on basaglar and see if we can reset her glycemic control. Demonstrated insulin adminstration, as well as insulin use and storage to patient. She is instructed to call with her glucose levels each day . Review diet. Will call with medication list from pharmacy. HTN;; BP sl elevated today at 134/86 but imporved. Tolerating medication well. Reviewed diabetes and pathophsiology\ Reviewed diet and self care/ Reviewed BG monitoring Control portions Food selections should be healthy Choose more low carb vegetables Avoid snacks and desserts. Drink water Exercise daily Eat more fresh foods, not canned or processed Eat more slowly Patient Instructions Due to difficulty swallowing and painful thyroid obtain thyroid US. Plan Detail Other Orders Orders: Additional Comments 1. Please schedule follow up in 3 months. 2. Lab work one week before appointment. 3. Discussed importance of regular exercise and recommend starting or continuing a regular exercise program for good health. 4. The patient was encouraged to lose weight for good health 5. The importance of monitoring blood sugar regularly was reviewed. 6. The importance of monitoring the HBA1c level regularly was reviewed. 7. The importance of prper foot care and regularly checking feet to prevent sores and loss of limbs was reviewed. 8. The importance of keeping BP at or below 130/80 to prevent stroke, heart attacks, kidney failure, blindness was reviewed. Spent approximately 60minutes with patient with over 50% of time spent in discussion and counseling regarding medication adjustment, symptoms and treatment of hypoglycemia, diet adherence, and checking BG before driving. Coding Level of Care Code Off vis,new,level 4 Diagnoses Type 2 diabetes mellitus with complication, without long-term current use of insulin E11.8 Diabetes mellitus complication status: with unspecified complications Diabetes mellitus terminal gauger insulin use: without terminal gauger use Time Spent (min) 60 07/31/182009 <Electronically signed by Danyelle MACEDO> Date Danyelle MACEDO Cosigner Signature: Date (if applicable) CC: CNPTOUTREACH Observed: 07/31/2018 Status: COMPLETED Source: [place] 12:00 AM [facility] REPOSITORY Patient Outreach (INTMWH) EDEL LANG ([id number]) 1965 F Date Time Provider Department 07/31/18 TERRIE LOPEZ [facility] During your visit today, we recorded the following information about you: Allergies As of Date: 07/31/2018 Noted Allergy Reaction NIA (FEXOFENADINE HCL) 01/25/2006 12 - Shortness of Breath ANCEF (CEFAZOLIN SODIUM) 01/25/2006 4 - Hives CLINDAMYCIN 01/05/2007 6 - Diarrhea duoderm [Other] 05/21/2007 Comments: severe burning pain at point of contact. No redness. ELAVIL (AMITRIPTYLINE) 04/27/2007 Comments: hallucinations MACROBID (NITROFURANTOIN MONOHYD/*05/15/2007 4 - Hives NORVASC (AMLODIPINE) 12/11/2008 7 - Swelling Date Reviewed: 07/17/2018 Reviewed by: Edel Montejo PLATFORM OPERATIONS DIRECTOR - Fully Assessed Visit Diagnosis:Medication management [Z79.899] Order(s):LIPID PANEL BASIC [SQLIPB] Order #: [id number] FUTURE Prescriptions as of 07/31/2018 Sig: VALACYCLOVIR 500 MG TABLET TAKE 1 TABLET BY MOUTH DAILY PROMETHAZINE 25 MG TABLET Take 1 tablet by mouth every * X ONDANSETRON 4 MG DISINTEGRATI* take 1 tablet by mouth every * ORPHENADRINE CITRATE ER 100 M* Take 1 tablet by mouth twice * FLUCONAZOLE 150 MG TABLET 1 tablet today and repeat in * RIZATRIPTAN 5 MG TABLET Take 1-2 tablets by mouth as * COLLAGENASE CLOSTRIDIUM HISTO* Apply 1 application to affect* LISINOPRIL 10 MG TABLET Take 1 tablet by mouth twice * X ONDANSETRON 4 MG DISINTEGRATI* Take 1 tablet by mouth every * X OXYCODONE-ACETAMINOPHEN 5 MG-* Take 1 tablet by mouth three * FLUTICASONE 50 MCG/ACTUATION * Use 2 Sprays in each nostril * MUPIROCIN 2 % TOPICAL OINTMENT APPLY TO AFFECTED AREA ONCE D* NADOLOL 80 MG TABLET Take 2 tablets by mouth once * LIDOCAINE 4 % TOPICAL CREAM Apply thin layer to affected * X TRAMADOL 50 MG TABLET Take 1-2 tablets by mouth nathalie* OMEPRAZOLE 20 MG CAPSULE,MELINDA* TAKE 1 CAPSULE BY MOUTH DAILY BUSPIRONE 5 MG TABLET Take 15 mg by mouth twice josé* OXYBUTYNIN CHLORIDE ER 15 MG * TAKE 1 TABLET BY MOUTH ONCE D* DICYCLOMINE 20 MG TABLET Take 1 tablet by mouth three * X VALACYCLOVIR 500 MG TABLET Take 1 tablet by mouth once d* DIVALPROEX ER 500 MG TABLET,E* take 1 tablet by mouth daily X GUAIFENESIN ER 600 MG TABLET,* Take 2 tablets by mouth twice* X BENZONATATE 200 MG CAPSULE Take 1 capsule by mouth three* Patient not taking: Reported on 06/07/2018 OMEPRAZOLE MAGNESIUM 20 MG TA* Take 1 tablet by mouth daily * Patient not taking: Reported on 07/03/2018 GABAPENTIN 600 MG TABLET TAKE 2 TABLETS THREE TIMES A * HYDROCORTISONE 2.5 % TOPICAL * 1 application by RECTAL route* LANCETS Test blood sugar(s) 3 times d* X BLOOD SUGAR DIAGNOSTIC STRIPS Test blood sugar(s) 3 times d* X GLIMEPIRIDE 2 MG TABLET Take 2 tablets by mouth twice* BENZOCAINE-MENTHOL 15 MG-2.6 * Take 1 Lozenge by mouth every* Patient not taking: Reported on 06/07/2018 DIAZEPAM 5 MG TABLET Take 10 mg by mouth once kala* TRIAMCINOLONE ACETONIDE 0.1 %* Apply 1 application to affect* MOMETASONE-FORMOTEROL HFA 100* Inhale 2 Puffs as instructed * ALBUTEROL SULFATE HFA 90 MCG/* Inhale 2 Puffs as instructed * X BLOOD SUGAR DIAGNOSTIC STRIPS Test blood sugar(s) 3 times d* CPAP Initiate CPAP @ 14 cm of wate* Patient not taking: Reported on 08/01/2018 COMPOUNDED PRESCRIPTION Nebulizer for home use. Diagn* QUETIAPINE 300 MG TABLET Take 1 tablet by mouth daily * Patient taking differently: Take 300 mg by mouth daily at* Problem List As Of Date 07/31/2018 Noted Resolved ESOPHAGEAL REFLUX [K21.9] More... Unspecified asthma(493.90) [J45.909] 06/02/2017 More... 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 Unspecified vitamin D deficiency [E55.9] INVALID FOR*02/27/2013 GENITAL HERPES NEC [A60.00] INVALID FOR* URGE AND STRESS MIXED INCONTINENCE [N39.46] INVALID FOR* LACERATION -NOT COMPLICATED BREAST [S21.009A] INVALID FOR*02/27/2013 Diabetes (HCC) [E11.9] INVALID FOR* Enthesopathy of unspecified site [M77.9] INVALID FOR*02/27/2013 Adenopathy, Hilar [R59.0] INVALID FOR* Major depressive disorder, recurrent episode (H*INVALID FOR* Abnormal mammogram, unspecified [R92.8] INVALID FOR*06/02/2017 Wound, open, breast [S21.009A] INVALID FOR*02/27/2013 Benign neoplasm of skin of lower limb, includin*INVALID FOR*02/27/2013 Umbilical hernia without mention of obstruction*INVALID FOR*06/02/2017 Ventral hernia, unspecified, without mention of*INVALID FOR*06/02/2017 Anxiety [F41.9] INVALID FOR* Vitamin d deficiency [E55.9] INVALID FOR* Urge incontinence of urine [N39.41] INVALID FOR*06/02/2017 Pain of left lower leg [M79.662] INVALID FOR* Carpal tunnel syndrome of right wrist [G56.01] INVALID FOR*06/02/2017 Morbid obesity with BMI of 45.0-49.9, adult (HC* ABRAM (obstructive sleep apnea) [G47.33] INVALID FOR* More... Left carpal tunnel syndrome [G56.02] INVALID FOR*06/02/2017 Asthma with COPD with exacerbation (HCC) [J44.1*INVALID FOR* HTN (hypertension) [I10] INVALID FOR* Ganglion cyst of finger of right hand [M67.441] INVALID FOR* More... Encounter Status:Closed by YULIA, PRODUSER on 08/31/18 CNOV Observed: 07/17/2018 Status: COMPLETED Source: [place] 1:40 PM [facility] RE[facility]IT[facility] Office Visit (INTM[facility]) EDEL LANG ([id number]) 1965 F Date Time Provider Department 07/17/18 1:40 PM EMILE TY (CARLOS) INTMWS During your visit today, we recorded the following information about you: Pulse Respiration Blood pressure Weight 64/minute 20/minute 120/76 147 kg Emile Ty APRN.CNS 07/17/2018 2:24 PM Addendum Transitional Care Management Progress Note The patients TCM visit was performed within the 7 days of discharge. Patient's Date of discharge: July 07, 2018 Date of initial coordinator contact after discharge: July 12, 2018 Discharge diagnosis: Cellulitis Medication review completed Yes Emile Ty APRN.CARLOS Provider Documentation: In follow-up of hospitalization, Edel Lang is a 52 year old female with the chief complaint of cellulitis. I have reviewed the patient?s last hospital course including diagnostic testing performed during this hospitalization, their discharge medications, and my assessment and plan with the patient and any family members present at today?s visit. HPI: Review of notes indicate history of chronic venous stasis prior lower extremity chronic infections, type 2 diabetes hypertension bipolar and migraines. She presented with to the emergency department after 24 hours of increased redness pain in her left lower extremity as well as a fever to 102?F. She reports initially injuring her leg helping clearly trees years ago. Since then she has had intermittent infections of her leg. She has not gone to one center recently. In the emergency department she was treated with vancomycin. Ultrasound of lower extremities was negative for DVT. Wounds improved during admission, condition stabilized and she was discharged home. She was asked to discuss switching from Depakote to Lamictal with her psychiatrist. Blood sugars were noted to be controlled during her stay. She was discharged on clindamycin 450 mg oral 3 times daily for 5 days at discharge. She was advised to follow-up with her primary care physician in 3-5 days. She reports completing all antibiotics. No fevers. Today she reports that blood sugars have been elevated with the infection. She reports an elevation of hemoglobin A1c of 9.2%, however I can not find a record of this at [facility]. Last HgbA1c was 7.2% at [facility]. She reports currently taking 2 glimepiride morning and evening. Reports home blood sugars have been 1 5200 since discharge. Still is a small area ?2 open on the area of chronic wound. She reports putting antibacterial ointment and leaving open to air currently. Recommendations of wound center nurse that she saw while in the hospital. She reports elevating her feet when seated. She has noted one to 2 loose stools since discharge. She is eating yogurt. This seems to help. PAST MEDICAL HISTORY: Reviewed and updated ALLERGIES: Reviewed and updated MEDICATIONS: Reviewed and updated SOCIAL HISTORY: Reviewed and updated FAMILY HISTORY: Reviewed and updated REVIEW OF SYSTEMS: GENERAL: No weight loss, malaise or fevers SKIN: Negative for rash and itching, Positive for lesions: 2 anterior perera, proximal ~1/4 diameter All other systems reviewed and negative, other than HPI. PHYSICAL EXAMINATION BP 120/76 Pulse 64 Resp 20 Wt 324 lb (147.0kg) General appearance: Obese, alert, in no acute distress and well-hydrated, well nourished, motor and sensory appear to be normal Lungs: Lungs clear to auscultation. No wheezing, rhonchi, rales Heart: RRR without murmur, gallop, or rubs. No ectopy Abdomen: Abdomen soft, non-tender. Bowel sounds normal. No masses, organomegaly Extremities: Edema: bilateral lower extremities, healed wound with defect left anterior perera 1. I have reviewed the patient record including associated test results during the last hospitalization Yes 2. I have reviewed Lab test Yes 3. I have reviewed Radiology test Yes 4. I reviewed assessment/plan with the patient/family member Yes ASSESSMENT/PLAN: 1. Loose stools - ICD9: 787.7, ICD10: R19.5 (primary diagnosis) 1-2 per day, complete culture if not normalizing soon - C. DIFFICILE PCR 2. Cellulitis of left lower extremity - ICD9: 682.6, ICD10: L03.116 Elevate leg Continue with topical treatment per [facility] recommendations Follow up with wound center at [facility] if not completely healing 3. Type 2 diabetes mellitus without complication, without long-term current use of insulin ([facility]) - ICD9: 250.00, ICD10: E11.9 Controlled. - Continue current medications Let us know if BS elevations continue after infection has cleared, to call early next week. Discuss medications with Dr. Patterson as advised per [facility]. She requested time off work. Letter provided. July 17, 2018 1:33 PM Allergies As of Date: 07/17/2018 Noted Allergy Reaction NIA (FEXOFENADINE HCL) 01/25/2006 12 - Shortness of Breath ANCEF (CEFAZOLIN SODIUM) 01/25/2006 4 - Hives CLINDAMYCIN 01/05/2007 6 - Diarrhea duoderm [Other] 05/21/2007 Comments: severe burning pain at point of contact. No redness. ELAVIL (AMITRIPTYLINE) 04/27/2007 Comments: hallucinations MACROBID (NITROFURANTOIN MONOHYD/*05/15/2007 4 - Hives NORVASC (AMLODIPINE) 12/11/2008 7 - Swelling Date Reviewed: 07/17/2018 Reviewed by: Edel Montejo LPN - Fully Assessed Reason for Visit: Hospital F/U [57] Primary Visit Diagnosis:Loose stools [R19.5] Other Visit Diagnoses:Cellulitis of left lower extremity [L03.116] Type 2 diabetes mellitus without complication, without long-term current use of insulin ([facility]) [E11.9] Order(s):C. DIFFICILE PCR [SQCDPCR] Order #: [id number] Prescriptions as of 07/17/2018 Sig: PROMETHAZINE 25 MG TABLET Take 1 tablet by mouth every * ONDANSETRON 4 MG DISINTEGRATI* take 1 tablet by mouth every * ORPHENADRINE CITRATE ER 100 M* Take 1 tablet by mouth twice * FLUCONAZOLE 150 MG TABLET 1 tablet today and repeat in * RIZATRIPTAN 5 MG TABLET Take 1-2 tablets by mouth as * COLLAGENASE CLOSTRIDIUM HISTO* Apply 1 application to affect* LISINOPRIL 10 MG TABLET Take 1 tablet by mouth twice * FLUTICASONE 50 MCG/ACTUATION * Use 2 Sprays in each nostril * MUPIROCIN 2 % TOPICAL OINTMENT APPLY TO AFFECTED AREA ONCE D* NADOLOL 80 MG TABLET Take 2 tablets by mouth once * LIDOCAINE 4 % TOPICAL CREAM Apply thin layer to affected * TRAMADOL 50 MG TABLET Take 1-2 tablets by mouth nathalie* OMEPRAZOLE 20 MG CAPSULE,MELINDA* TAKE 1 CAPSULE BY MOUTH DAILY BUSPIRONE 5 MG TABLET Take 15 mg by mouth twice josé* OXYBUTYNIN CHLORIDE ER 15 MG * TAKE 1 TABLET BY MOUTH ONCE D* DICYCLOMINE 20 MG TABLET Take 1 tablet by mouth three * VALACYCLOVIR 500 MG TABLET Take 1 tablet by mouth once d* DIVALPROEX ER 500 MG TABLET,E* take 1 tablet by mouth daily GUAIFENESIN ER 600 MG TABLET,* Take 2 tablets by mouth twice* GABAPENTIN 600 MG TABLET TAKE 2 TABLETS THREE TIMES A * HYDROCORTISONE 2.5 % TOPICAL * 1 application by RECTAL route* BLOOD SUGAR DIAGNOSTIC STRIPS Test blood sugar(s) 3 times d* GLIMEPIRIDE 2 MG TABLET Take 2 tablets by mouth twice* LANCETS Test blood sugar(s) 3 times d* DIAZEPAM 5 MG TABLET Take 10 mg by mouth once kala* TRIAMCINOLONE ACETONIDE 0.1 %* Apply 1 application to affect* MOMETASONE-FORMOTEROL HFA 100* Inhale 2 Puffs as instructed * ALBUTEROL SULFATE HFA 90 MCG/* Inhale 2 Puffs as instructed * BLOOD SUGAR DIAGNOSTIC STRIPS Test blood sugar(s) 3 times d* CPAP Initiate CPAP @ 14 cm of wate* COMPOUNDED PRESCRIPTION Nebulizer for home use. Diagn* QUETIAPINE 300 MG TABLET Take 1 tablet by mouth daily * Patient taking differently: Take 300 mg by mouth daily at* VALACYCLOVIR 500 MG TABLET TAKE 1 TABLET BY MOUTH DAILY ONDANSETRON 4 MG DISINTEGRATI* Take 1 tablet by mouth every * BENZONATATE 200 MG CAPSULE Take 1 capsule by mouth three* Patient not taking: Reported on 06/07/2018 OMEPRAZOLE MAGNESIUM 20 MG TA* Take 1 tablet by mouth daily * Patient not taking: Reported on 07/03/2018 BENZOCAINE-MENTHOL 15 MG-2.6 * Take 1 Lozenge by mouth every* Patient not taking: Reported on 06/07/2018 Medication notes this encounter ONDANSETRON 4 MG DISINTEGRATING TABLET >> Edel Montejo LPN 07/17/2018 1:37 PM >> EDEL MONTEJO LPN dilshad Jul 17, 2018 1:37 PM duplicate Problem List As Of Date 07/17/2018 Noted Resolved ESOPHAGEAL REFLUX [K21.9] More... Unspecified asthma(493.90) [J45.909] 06/02/2017 More... 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 Unspecified vitamin D deficiency [E55.9] INVALID FOR*02/27/2013 GENITAL HERPES NEC [A60.00] INVALID FOR* URGE AND STRESS MIXED INCONTINENCE [N39.46] INVALID FOR* LACERATION -NOT COMPLICATED BREAST [S21.009A] INVALID FOR*02/27/2013 Diabetes (HCC) [E11.9] INVALID FOR* Enthesopathy of unspecified site [M77.9] INVALID FOR*02/27/2013 Adenopathy, Hilar [R59.0] INVALID FOR* Major depressive disorder, recurrent episode (H*INVALID FOR* Abnormal mammogram, unspecified [R92.8] INVALID FOR*06/02/2017 Wound, open, breast [S21.009A] INVALID FOR*02/27/2013 Benign neoplasm of skin of lower limb, includin*INVALID FOR*02/27/2013 Umbilical hernia without mention of obstruction*INVALID FOR*06/02/2017 Ventral hernia, unspecified, without mention of*INVALID FOR*06/02/2017 Anxiety [F41.9] INVALID FOR* Vitamin d deficiency [E55.9] INVALID FOR* Urge incontinence of urine [N39.41] INVALID FOR*06/02/2017 Pain of left lower leg [M79.662] INVALID FOR* Carpal tunnel syndrome of right wrist [G56.01] INVALID FOR*06/02/2017 Morbid obesity with BMI of 45.0-49.9, adult (HC* ABRAM (obstructive sleep apnea) [G47.33] INVALID FOR* More... Left carpal tunnel syndrome [G56.02] INVALID FOR*06/02/2017 Asthma with COPD with exacerbation (HCC) [J44.1*INVALID FOR* HTN (hypertension) [I10] INVALID FOR* Ganglion cyst of finger of right hand [M67.441] INVALID FOR* More... Letter Text Department of Internal Medicine [address] [id number] 07/17/2018 Edel Lang [facility]# [id number] [facility] [address] [place] [address] TO WHOM IT MAY CONCERN: This is to certify that Ms. Edel Lang has been under my care for illness and was unable to work from July 16, 2018 through July 23, 2018. May return to work July 24, 2018. Sincerely yours, Emile Ty APRN.CNS Encounter Status:Closed by EMILE SANTOS on 07/17/18 PROGRESS Observed: 07/17/2018 Status: COMPLETED Source: [place] 1:32 PM [facility] REPOSITORY O ID: [id number] Author: Emile Ty (Cns) Service: (none) Author Type: Nurse Specialist Type: Progress Notes Filed: 07/17/2018 2:24 PM Note Text: Transitional Care Management Progress Note The patients TCM visit was performed within the 7 days of discharge. Patient's Date of discharge: July 07, 2018 Date of initial coordinator contact after discharge: July 12, 2018 Discharge diagnosis: Cellulitis Medication review completed Yes Emile Ty APRN.WINDING OPERATOR Provider Documentation: In follow-up of hospitalization, Edel Lang is a 52 year old female with the chief complaint of cellulitis. I have reviewed the patient?s last hospital course including diagnostic testing performed during this hospitalization, their discharge medications, and my assessment and plan with the patient and any family members present at today?s visit. HPI: Review of notes indicate history of chronic venous stasis prior lower extremity chronic infections, type 2 diabetes hypertension bipolar and migraines. She presented with to the emergency department after 24 hours of increased redness pain in her left lower extremity as well as a fever to 102?F. She reports initially injuring her leg helping clearly trees years ago. Since then she has had intermittent infections of her leg. She has not gone to one center recently. In the emergency department she was treated with vancomycin. Ultrasound of lower extremities was negative for DVT. Wounds improved during admission, condition stabilized and she was discharged home. She was asked to discuss switching from Depakote to Lamictal with her psychiatrist. Blood sugars were noted to be controlled during her stay. She was discharged on clindamycin 450 mg oral 3 times daily for 5 days at discharge. She was advised to follow- up with her primary care physician in 3-5 days. She reports completing all antibiotics. No fevers. Today she reports that blood sugars have been elevated with the infection. She reports an elevation of hemoglobin A1c of 9.2%, however I can not find a record of this at [facility]. Last HgbA1c was 7.2% at [facility]. She reports currently taking 2 glimepiride morning and evening. Reports home blood sugars have been 1 5200 since discharge. Still is a small area ?2 open on the area of chronic wound. She reports putting antibacterial ointment and leaving open to air currently. Recommendations of wound center nurse that she saw while in the hospital. She reports elevating her feet when seated. She has noted one to 2 loose stools since discharge. She is eating yogurt. This seems to help. PAST MEDICAL HISTORY: Reviewed and updated ALLERGIES: Reviewed and updated MEDICATIONS: Reviewed and updated SOCIAL HISTORY: Reviewed and updated FAMILY HISTORY: Reviewed and updated REVIEW OF SYSTEMS: GENERAL: No weight loss, malaise or fevers SKIN: Negative for rash and itching, Positive for lesions: 2 anterior perera, proximal ~1/4 diameter All other systems reviewed and negative, other than HPI. PHYSICAL EXAMINATION BP 120/76 Pulse 64 Resp 20 Wt 324 lb (147.0kg) General appearance: Obese, alert, in no acute distress and well-hydrated, well nourished, motor and sensory appear to be normal Lungs: Lungs clear to auscultation. No wheezing, rhonchi, rales Heart: RRR without murmur, gallop, or rubs. No ectopy Abdomen: Abdomen soft, non-tender. Bowel sounds normal. No masses, organomegaly Extremities: Edema: bilateral lower extremities, healed wound with defect left anterior perera 1. I have reviewed the patient record including associated test results during the last hospitalization Yes 2. I have reviewed Lab test Yes 3. I have reviewed Radiology test Yes 4. I reviewed assessment/plan with the patient/family member Yes ASSESSMENT/PLAN: 1. Loose stools - ICD9: 787.7, ICD10: R19.5 (primary diagnosis) 1-2 per day, complete culture if not normalizing soon - C. DIFFICILE PCR 2. Cellulitis of left lower extremity - ICD9: 682.6, ICD10: L03.116 Elevate leg Continue with topical treatment per [facility] recommendations Follow up with wound center at [facility] if not completely healing 3. Type 2 diabetes mellitus without complication, without long-term current use of insulin (HCC) - ICD9: 250.00, ICD10: E11.9 Controlled. - Continue current medications Let us know if BS elevations continue after infection has cleared, to call early next week. Discuss medications with Dr. Patterson as advised per [facility]. She requested time off work. Letter provided. July 17, 2018 1:33 PM 12 LEAD ELECTROCARDIOGRAM Observed: 07/12/2018 Status: F Source: [place] 2:03 PM [facility] REPOSITORY [facility] Cardiovascular Services [address] [place] [address] [id number] 12 Lead EKG 07/09/18 1356 MR#: [id number] Acct: [id number] Name: EDEL LANG Rep #: [id number] : 1965 52 From: Dale Craig MD Attending Dr: Salinas Heard MD Status: DIS IN Ordering Dr: Salinas Heard MD Date: 07/09/18 Location: [facility]3 Sex: F C Admitted: 07/07/18 Test Reason : LIGHTHEADED Blood Pressure : / mmHG Vent. Rate : 082 BPM Atrial Rate : 082 BPM P-R Int : 178 ms QRS Dur : 102 ms QT Int : 386 ms P-R-T Axes : 045 -15 001 degrees QTc Int : 450 ms Normal sinus rhythm Incomplete right bundle branch block T wave abnormality, consider anterior ischemia Abnormal ECG Confirmed by AMY RIZO, DALE ([id number]), greeting card editor EM QUINTERO ([id number]) on 07/12/2018 2:03:18 PM Referred By: DEXTER Confirmed By:DALE CRAIG MD 07/12/18 1403 Date Dale Craig MD CC: Terrie Lopez MD; Salinas Heard MD Signed DISCHARGE SUMMARY Observed: 07/10/2018 Status: F Source: [place] 10:06 AM [facility] REPOSITORY [facility] Medical Records Department [address] [place] [address] Discharge Summary 07/10/18 0940 MR#: [id number] Acct: [id number] Name: EDEL LANG Rep #: [id number] : 1965 52 From: Salinas Heard MD PCP: Terrie Lopez MD Status: ADM IN Y Location: [place] [address] Discharge Date and Diagnosis - Problem List Patient Problems: Active and Suspected Problems (Last Updated 02/18/18 @ 13:39 by Vida Gunn) Cellulitis (Acute) Date of Admission: 07/07/18 Date of Discharge: 07/10/18 - Primary Discharge Diagnosis Active and Suspected Problems (Last Updated 02/18/18 @ 13:39 by Vida Gunn) Cellulitis (Acute) - Secondary Discharge Diagnosis Chronic Problems (Last Updated 02/18/18 @ 13:39 by Vida Gunn) HTN (hypertension) (Chronic) Pain syndrome, chronic (Chronic) Bipolar disorder (Chronic) Migraines (Chronic) Obstructive sleep apnea (Chronic) Stasis dermatitis of both legs (Chronic) Venous insufficiency of both lower extremities (Chronic) Super obese (Chronic) ADHD (attention deficit hyperactivity disorder) (Chronic) Benign hypertension (Chronic) Type II diabetes mellitus (Chronic) GERD (gastroesophageal reflux disease) (Chronic) COPD (Chronic) Open wound of left lower extremity (Chronic) Hospital Course and Treatment Imaging Results: Venous doppler: Interpretation Summary No evidence for acute deep venous thrombosis bilateral lower extremities with patent and compressible bilateral great saphenous veins. Consultations 07/08/18 11:16 Consult: Onc/Wound/residential real estate appraiser Routine Comment: Operations: None Procedures: None Summary of Care Provided: HPI: The patient is a 52 year old F with a h/o of chronic venous stasis, previous LLE injury with chronic infections, DM2, HTN, Bipolar and migraines presents to the ER after 24 hours of increase redness, pain in her LLE as well as a fever to 102. She initially injured her LLE when she was helping to clear away trees years ago. Since she has had that leg have intermittent infections. She has only noticed that the leg was warm and painful yesterday, but she has noticed that the leg has been more swollen over the last few weeks. She has not been going to the wound clinic recently as she says her wound was healed, but yesterday she noticed some drainage though it is not draining now. In the ER she was given Vancomycin since she is allergic to PCN and cephalosporins. Vital Signs - 24 hr 07/10/18 07:49 97.8 F 72 16 144/87 H 95 07/10/18 07:15 96 07/10/18 03:00 97.7 F L 71 18 133/80 H 98 General: Alert, Oriented x3, No apparent distress HEENT: Atraumatic, EOMI, Normocephalic Oral: Moist Mucosa Neck: Supple, No JVD Lungs: Clear to auscultation, Normal air movement, No rhonchi, No wheeze, No rales Cardiovascular: Regular rate, Regular Rhythm, Normal S1, Normal S2, No murmurs Abdomen: Soft, Non Tender, Non-Distended, No Hepato-splenomegaly Extremities: Edema - 2+ non-pitting Skin: Ulcer/ Wound - on left tibia, appears healed without drainage, Psych/Mental Status: Normal Affect, Appropriate Hospital Course: 1. Cellulitis/LLE swelling and pain - On presentations it appeared that she was having a left lower pain, swelling and redness. US doppler demonstrated no DVT in either lower extremity. Given her allergy to PCN and ancef, she was started on clindamycin IV which appears to have helped her fever and the redness in her leg. She would like to be discharged today with close PCP follow-up. Her course was uncomplicated. 2. Bipolar disorder/Migraines - I checked a depakote level here on admission and her level was very low despite her assurance that she takes it as prescribed. We discussed the possibility of lamictal and the removal of both depakote and seroquel to possibly minimize the metabolic effects of the seroquel. I recommended she discuss this possibility with her psychiatrist. 3. DM2 - Her blood sugars were controlled during her stay with a SSI regimen. She is to continue her glimepiride on discharge. 4. Her other diagnosis were evaluated and her home meds were continued where appropriate. Discharge Activity: No Restrictions Return to work on:: 07/16/18 Call your doctor if you observe: Fever of 101 or Higher Home Medications: Medications to take at Discharge Buspirone HCl 20 mg PO TID PRN PRN 03/05/17 Gabapentin [Neurontin] 1,200 mg PO TID 03/05/17 Nadolol [Corgard (Beta Torin)] 160 mg PO DAILY 03/05/17 Oxybutynin Chloride [Ditropan Xl] 15 mg PO QHS 03/05/17 Quetiapine Fumarate [Quetiapine Fumarate ER] 50 mg PO DAILY 03/05/17 Quetiapine Fumarate [Quetiapine Fumarate ER] 300 mg PO QHS 03/05/17 buPROPion XL [Wellbutrin Xl] 300 mg PO DAILY 03/05/17 Glimepiride [Amaryl] 40 mg PO BID 03/20/17 Lisinopril 20 mg PO QHS 03/20/17 divalproex 125 mg capsule,delayed release sprinkle 500 mg PO DAILY 02/18/18 omeprazole 10 mg capsule,delayed release 10 mg PO DAILY 02/18/18 valacyclovir 1 gram tablet 1,000 mg PO QDAY 02/18/18 Diazepam [Valium] 10 mg PO BID PRN PRN 03/11/18 Orphenadrine [Norflex] 100 mg PO BID PRN 03/11/18 traMADol [Ultram] 100 mg PO Q6H PRN PRN 03/11/18 Albuterol Inhaler [Ventolin Hfa] 2 puff INHALATION Q4H PRN PRN 05/29/18 Clindamycin [Cleocin] 450 mg PO TID 5 Days #15 cap 07/10/18 Following Prescrptions Were Given to Patient: Clindamycin [Cleocin] 450 mg PO TID 5 Days #15 cap Primary Care Physician: Terrie Lopez MD [Primary Care Provider] - Please follow up with your Primary Care Physician in: in 3- 5 days Disposition: Home Minutes spent on discharge:: 35 Patient Condition:: Good Medical Necessity - Tobacco Use Smoking Status: Never smoker Meaningful Use Info Meaningful Use Diagnoses (Choose all that apply): None applicable Code Visit Inpatient E AND M: 41855 Disch Hosp 07/10/18 1006 <Electronically signed by Salinas Heard MD> Date Salinas Heard MD Cosigner Signature (if applicable): Date CC: Terrie Lopez MD; Salinas Heard MD Signed DISCHARGE INSTRUCTION Observed: 07/10/2018 Status: F Source: [place] 9:37 AM [facility] REPOSITORY [facility] Medical Records Department [address] [place] [id number] Instructions for Home/Discharge Instructions 07/10/18 0935 MR#: [id number] Acct: [id number] Name: EDEL LANG Rep #: [id number] : 1965 52 From: Salinas Heard MD PCP: Terrie Lopez MD Status: ADM IN - Discharge Diagnoses Current Active Problems: Current Active and Chronic Problems (Last Updated 02/18/18 @ 13:39 by Vida Gunn) Cellulitis (Acute) You will use the following diet at home:: Calorie/Carbohydrate Controlled (specify 1200, 1400, etc) Your food should be the consistency of: Regular Your liquids should be the consistency of: Regular/Thin Discharge Activity: No Restrictions Return to work on:: 07/16/18 Call your doctor if you observe: Fever of 101 or Higher Allergies/Adverse Reactions: Allergies cefazolin sodium [From Anc] Allergy (Verified 07/07/18 13:11) Hives Penicillins Allergy (Verified 07/07/18 13:11) Hives Medications to take at Discharge Buspirone HCl 20 mg PO TID PRN PRN 03/05/17 Gabapentin [Neurontin] 1,200 mg PO TID 03/05/17 Nadolol [Corgard (Beta Torin)] 160 mg PO DAILY 03/05/17 Oxybutynin Chloride [Ditropan Xl] 15 mg PO QHS 03/05/17 Quetiapine Fumarate [Quetiapine Fumarate ER] 50 mg PO DAILY 03/05/17 Quetiapine Fumarate [Quetiapine Fumarate ER] 300 mg PO QHS 03/05/17 buPROPion XL [Wellbutrin Xl] 300 mg PO DAILY 03/05/17 Glimepiride [Amaryl] 40 mg PO BID 03/20/17 Lisinopril 20 mg PO QHS 03/20/17 divalproex 125 mg capsule,delayed release sprinkle 500 mg PO DAILY 02/18/18 omeprazole 10 mg capsule,delayed release 10 mg PO DAILY 02/18/18 valacyclovir 1 gram tablet 1,000 mg PO QDAY 02/18/18 Diazepam [Valium] 10 mg PO BID PRN PRN 03/11/18 Orphenadrine [Norflex] 100 mg PO BID PRN 03/11/18 traMADol [Ultram] 100 mg PO Q6H PRN PRN 03/11/18 Albuterol Inhaler [Ventolin Hfa] 2 puff INHALATION Q4H PRN PRN 05/29/18 Clindamycin [Cleocin] 450 mg PO TID 5 Days #15 cap 07/10/18 The following prescriptions were given: Clindamycin [Cleocin] 450 mg PO TID 5 Days #15 cap Primary Care Physician: Terrie Lopez MD [Primary Care Provider] - Please follow up with your Primary Care Physician in: in 3- 5 days Test Results: Test results from this visit will be discussed in further detail at your follow-up appointment, if applicable. 07/10/18 0937 <Electronically signed by Salinas Heard MD> Date Salinas Heard MD CC: Terrie Lopez MD BEDSIDE GLUCOSE Collected: 07/10/2018 Status: F Source: [place] 6:38 AM [facility] REPOSITORY TYPE CODE TESTS RESULT OUT OF REFERENCE UNITS RANGE LAB L501.080 70-110 mg/dL High BEDSIDE GLU 199 Result Comment: MANAGEMENT OF PATIENT CARE PER NURSING PROTOCOL Performed By: #### L501.080 #### [facility] Point of Care [address] [place] [address] BEDSIDE GLUCOSE Collected: 07/09/2018 Status: F Source: [place] 10:23 PM [facility] REPOSITORY TYPE CODE TESTS RESULT OUT OF REFERENCE UNITS RANGE LAB L501.080 70-110 mg/dL High BEDSIDE GLU 199 Result Comment: MANAGEMENT OF PATIENT CARE PER NURSING PROTOCOL Performed By: #### L501.080 #### [facility] Point of Care [address] [place] [address] VENOUS DUPLEX LOWER Observed: 07/09/2018 Status: F Source: [place] EXTREMITY 6:00 PM [facility] REPOSITORY [facility] Cardiovascular Services [address] [place] [address] Venous Duplex US - [place] Extrem 07/09/18 0855 MR#: [id number] Acct: [id number] Name: EDEL LANG Rep #: [id number] : 1965 52 From: Dontrell Batres MD Attending Dr: Salinas Heard MD Status: ADM IN Ordering Dr: Salinas Heard MD Date: 07/07/18 Location: [facility] Sex: F C Admitted: 07/07/18 Reason For Study: pulmonary embolism RIGHT LEFT GSV is normal. GSV is normal. CFV is compressible, spontaneous, phasic, CFV is compressible, spontaneous, phasic, competent and demonstrates normal competent, and demonstrates normal augmentation. augmentation. FV is compressible, spontaneous, phasic, FV is compressible, spontaneous, phasic, competent and demonstrates normal competent and demonstrates normal augmentation. augmentation. POP V is compressible, spontaneous, phasic, POP V is compressible, spontaneous, phasic, competent and demonstrates normal competent and demonstrates normal augmentation. augmentation. T/P Trunk is compressible. T/P Trunk is compressible. PTV is compressible. PTV is compressible. RT PerV is compressible. LT PerV is compressible. Procedure Exam performed portable in patient room. The study was technically difficult. Due to obesity. A preliminary report was called and/or faxed to [facility]. Interpretation Summary No evidence for acute deep venous thrombosis bilateral lower extremities with patent and compressible bilateral great saphenous veins. Ordering Physician: Salinas Heard Referring Physician: Terrie Lopez Performed By: Ghazal Byrd, ANNI, RVT 07/09/181758 Date Dontrell Batres MD CC: Terrie Lopez MD; Salinas Heard MD Date Dictated: 07/09/18854 Date Transcribed: 07/09/181758 [employer] Sequestration Plant Operator: Signed BEDSIDE GLUCOSE Collected: 07/09/2018 Status: F Source: [place] 4:39 PM [facility] REPOSITORY TYPE CODE TESTS RESULT OUT OF REFERENCE UNITS RANGE LAB L501.080 70-110 mg/dL High BEDSIDE GLU 182 Result Comment: MANAGEMENT OF PATIENT CARE PER NURSING PROTOCOL Performed By: #### L501.080 #### [facility] Point of Care [address] [place] [address] CBC W/DIFF, AUTOMATED Collected: 07/09/2018 Status: F Source: [place] 2:04 PM [facility] REPOSITORY TYPE CODE TESTS RESULT OUT OF RANGE REFERENCE UNITS LAB L100.1000 4.4-11.0 K/mm3 Low WBC 3.7 LAB L100.1200 4.2-5.4 M/mm3 Low RBC 3.91 LAB L100.1300 12.0-15.0 g/dl Low HGB 10.4 LAB L100.1400 37-47 % Low HCT 34.0 LAB L100.1500 81-99 fL Normal MCV 87.0 LAB L100.1600 27.0-32.0 pg Low MCH 26.6 LAB L100.1700 32-36 g/gl Low MCHC 30.6 LAB L100.1810 11.6-14.6 % High RDW CV 15.8 LAB L100.1820 35.1-43.9 fl High RDW SD 50.4 LAB L100.1900 150-450 K/mm3 Low PLT 121 LAB L100.2000 6.2-12.0 fl Normal MPV 9.1 LAB L100.2100 47-70 % Normal NEUT% 68.3 LAB L100.2200 19-41 % Normal LY% 21.6 LAB L100.2300 0-10 % Normal MONO% 9.8 LAB L100.2400 0-5 % Normal EO% 0.0 LAB L100.2500 0-1 % Normal BASO% 0.0 LAB L100.2550 0.0-0.9 % Normal IM GRAN % 0.300 Result Comment: IG% - Immature Granulocytes (promyelocytes, myelocytes and metamyelocytes) > 1% indicates that a LEFT SHIFT is Present. LAB L100.2620 2.0-7.7 X10 3/uL Normal Absolute Neut 2.5 LAB L100.2720 0.83-4.51 X10 3/ul Low Absolute Lymph 0.79 Performed By: #### L100.0100 #### [facility] [address] [place], [address] BASIC METABOLIC Collected: 07/09/2018 Status: F Source: [place] PROFILE (BMP) 2:04 PM [facility] REPOSITORY TYPE CODE TESTS RESULT OUT OF RANGE REFERENCE UNITS LAB L501.0100 74-106 mg/dL High GLU 241 Result Comment: Glucose result greater than or equal to 200 mg/dL suggests DIABETES MELLITUS per A.D.A. criteria. Please note revised GLUCOSE reference range effective 2017. LAB L501.1000 7-18 mg/dL Normal BUN 11 LAB L501.1100 0.55-1.02 mg/dL Normal CREAT,SERUM 0.75 Result Comment: The validity of the calculated GFR AND GFRAA in patients over 70 years has not been determined. Clinical correlation is essential. LAB L501.1110 >60 mL/min Normal EST GFR 86 Result Comment: Non- GFR Calc LAB L501.1115 >60 mL/min Normal EST GFR - AA 104 Result Comment: GFR Calc LAB L501.1255 ml/min Normal Estimated CRCL 77.16 LAB L501.1300 10-20 RATIO Normal BUN/CRE 14.7 LAB L501.2200 8.5-10 mg/dL Low .1 CA 8.4 LAB L501.5300 136-14 mmol/L Normal 5 NA 139 LAB L501.5600 3.5-5. mmol/L Normal 1 K 4.5 LAB L501.5900 98-107 mmol/L Normal CL 104 LAB L501.6100 21.0-3 mmol/L Normal 2.0 CO2 32.0 LAB L501.6200 5-15 Low GAP 3 Performed By: #### L500.2500 #### [facility] [address] [place], [address] TROPONIN-I Collected: 07/09/2018 Status: F Source: [place] 2:04 PM [facility] REPOSITORY TYPE CODE TESTS RESULT OUT OF RANGE REFERENCE UNITS LAB L501.4010 <0.045 ng/mL Normal < 0.015 TROPONIN-I Result Comment: TROPONIN-I EXPECTED VALUES <0.045 Negative 0.045 - 0.590 Consistent with Cardiac Damage > OR = 0.600 Critical Value Not every elevated troponin is indicative of CT. These values should be used with clinical judgement in examining the patient's clinical picture for diagnosis. To establish a diagnosis of CT versus myocardial injury, there must be a demonstrated rise and/or fall in the troponin values, in addition to ischemic symptoms, EKG changes, new regional wall motion abnormality, and/or angiographical evidence. PLEASE NOTE: REFERENCE RANGES EDITED 18 Performed By: #### L501.4010 #### [facility] [address], [address] BEDSIDE GLUCOSE Collected: 07/09/2018 Status: F Source: [place] 11:39 AM [facility] REPOSITORY TYPE CODE TESTS RESULT OUT OF REFERENCE UNITS RANGE LAB L501.080 70-110 mg/dL High BEDSIDE GLU 214 Result Comment: MANAGEMENT OF PATIENT CARE PER NURSING PROTOCOL Performed By: #### L501.080 #### [facility] Point of Care [address] [place] [address] BEDSIDE GLUCOSE Collected: 07/09/2018 Status: F Source: [place] 6:51 AM [facility] REPOSITORY TYPE CODE TESTS RESULT OUT OF REFERENCE UNITS RANGE LAB L501.080 70-110 mg/dL High BEDSIDE GLU 201 Result Comment: MANAGEMENT OF PATIENT CARE PER NURSING PROTOCOL Performed By: #### L501.080 #### [facility] Point of Care [address] [place] [address] BASIC METABOLIC Collected: 07/09/2018 Status: F Source: [place] PROFILE (BMP) 5:25 AM [facility] REPOSITORY TYPE CODE TESTS RESULT OUT OF RANGE REFERENCE UNITS LAB L501.0100 74-106 mg/dL High GLU 221 Result Comment: Glucose result greater than or equal to 200 mg/dL suggests DIABETES MELLITUS per A.D.A. criteria. Please note revised GLUCOSE reference range effective 2017. LAB L501.1000 7-18 mg/dL Normal BUN 12 LAB L501.1100 0.55-1.02 mg/dL Normal CREAT,SERUM 0.74 Result Comment: The validity of the calculated GFR AND GFRAA in patients over 70 years has not been determined. Clinical correlation is essential. LAB L501.1110 >60 mL/min Normal EST GFR 87 Result Comment: Non- GFR Calc LAB L501.1115 >60 mL/min Normal EST GFR - AA 105 Result Comment: GFR Calc LAB L501.1255 ml/min Normal Estimated CRCL 78.20 LAB L501.1300 10-20 RATIO Normal BUN/CRE 16.3 LAB L501.2200 8.5-10 mg/dL Low .1 CA 8.2 LAB L501.5300 136-14 mmol/L Normal 5 NA 139 LAB L501.5600 3.5-5. mmol/L Normal 1 K 4.6 LAB L501.5900 98-107 mmol/L Normal CL 103 LAB L501.6100 21.0-3 mmol/L Normal 2.0 CO2 28.0 LAB L501.6200 5-15 Normal GAP 8 Performed By: #### L500.2500 #### [facility] [address] [facility] [address] BEDSIDE GLUCOSE Collected: 07/08/2018 Status: F Source: [place] 9:53 PM [facility] REPOSITORY TYPE CODE TESTS RESULT OUT OF REFERENCE UNITS RANGE LAB L501.080 70-110 mg/dL High BEDSIDE GLU 206 Result Comment: MANAGEMENT OF PATIENT CARE PER NURSING PROTOCOL Performed By: #### L501.080 #### [facility] Point of Care [address] [place] [address]. [place] [address] BEDSIDE GLUCOSE Collected: 07/08/2018 Status: F Source: [place] 4:31 PM [facility] REPOSITORY TYPE CODE TESTS RESULT OUT OF REFERENCE UNITS RANGE LAB L501.080 70-110 mg/dL High BEDSIDE GLU 230 Result Comment: MANAGEMENT OF PATIENT CARE PER NURSING PROTOCOL Performed By: #### L501.080 #### [facility] Point of Care [address] [place] [address] BEDSIDE GLUCOSE Collected: 07/08/2018 Status: F Source: [place] 10:29 AM [facility] REPOSITORY TYPE CODE TESTS RESULT OUT OF REFERENCE UNITS RANGE LAB L501.080 70-110 mg/dL High BEDSIDE GLU 232 Result Comment: MANAGEMENT OF PATIENT CARE PER NURSING PROTOCOL Performed By: #### L501.080 #### [facility] Point of Care [address] [place] [address] BEDSIDE GLUCOSE Collected: 07/08/2018 Status: F Source: [place] 6:44 AM [facility] REPOSITORY TYPE CODE TESTS RESULT OUT OF REFERENCE UNITS RANGE LAB L501.080 70-110 mg/dL High BEDSIDE GLU 182 Result Comment: Insulin Given MANAGEMENT OF PATIENT CARE PER NURSING PROTOCOL Performed By: #### L501.080 #### [facility] Point of Care [address] [place], [place] [address] CBC W/DIFF, AUTOMATED Collected: 07/08/2018 Status: F Source: [place] 5:20 AM [facility] REPOSITORY TYPE CODE TESTS RESULT OUT OF RANGE REFERENCE UNITS LAB L100.1000 4.4-11.0 K/mm3 Normal WBC 4.7 LAB L100.1200 4.2-5.4 M/mm3 Low RBC 3.98 LAB L100.1300 12.0-15.0 g/dl Low HGB 10.9 LAB L100.1400 37-47 % Low HCT 34.5 LAB L100.1500 81-99 fL Normal MCV 86.7 LAB L100.1600 27.0-32.0 pg Normal MCH 27.4 LAB L100.1700 32-36 g/gl Low MCHC 31.6 LAB L100.1810 11.6-14.6 % High RDW CV 15.0 LAB L100.1820 35.1-43.9 fl High RDW SD 46.9 LAB L100.1900 150-450 K/mm3 Low PLT 131 LAB L100.2000 6.2-12.0 fl Normal MPV 9.7 LAB L100.2100 47-70 % High NEUT% 71.1 LAB L100.2200 19-41 % Normal LY% 20.4 LAB L100.2300 0-10 % Normal MONO% 8.3 LAB L100.2400 0-5 % Normal EO% 0.0 LAB L100.2500 0-1 % Normal BASO% 0.0 LAB L100.2550 0.0-0.9 % Normal IM GRAN % 0.200 Result Comment: IG% - Immature Granulocytes (promyelocytes, myelocytes and metamyelocytes) > 1% indicates that a LEFT SHIFT is Present. LAB L100.2620 2.0-7.7 X10 3/uL Normal Absolute Neut 3.4 LAB L100.2720 0.83-4.51 X10 3/ul Normal Absolute Lymph 0.96 Performed By: #### L100.0100 #### [facility] [address] [place], [address] BASIC METABOLIC Collected: 07/08/2018 Status: F Source: [place] PROFILE (BMP) 5:20 AM [facility] REPOSITORY TYPE CODE TESTS RESULT OUT OF RANGE REFERENCE UNITS LAB L501.0100 74-106 mg/dL High GLU 183 Result Comment: Fasting Glucose result greater than or equal to 126 mg/dL suggests DIABETES MELLITUS per A.D.A. criteria. Please note revised GLUCOSE reference range effective 2017. LAB L501.1000 7-18 mg/dL Normal BUN 11 LAB L501.1100 0.55-1.02 mg/dL Normal CREAT,SERUM 0.67 Result Comment: The validity of the calculated GFR AND GFRAA in patients over 70 years has not been determined. Clinical correlation is essential. LAB L501.1110 >60 mL/min Normal EST GFR 98 Result Comment: Non- GFR Calc LAB L501.1115 >60 mL/min Normal EST GFR - AA 118 Result Comment: GFR Calc LAB L501.1255 ml/min Normal Estimated CRCL 86.37 LAB L501.1300 10-20 RATIO Normal BUN/CRE 16.5 LAB L501.2200 8.5-10 mg/dL Low .1 CA 8.2 LAB L501.5300 136-14 mmol/L Normal 5 NA 139 LAB L501.5600 3.5-5. mmol/L Normal 1 K 4.1 LAB L501.5900 98-107 mmol/L Normal CL 101 LAB L501.6100 21.0-3 mmol/L Normal 2.0 CO2 29.0 LAB L501.6200 5-15 Normal GAP 9 Performed By: #### L500.2500 #### [facility] [address] [place], [address] LACTIC ACID Collected: 07/08/2018 Status: F Source: [place] 5:20 AM [facility] REPOSITORY Order Comment: Yes/No query for Sepsis Lactate Rule Y TYPE CODE TESTS RESULT OUT OF RANGE REFERENCE UNITS LAB L503.6005 0.4-2.0 mmol/L Normal LACTIC ACID 1.6 Performed By: #### L503.6005 #### [facility] [address] [place], [address] BEDSIDE GLUCOSE Collected: 07/07/2018 Status: F Source: [place] 9:59 PM [facility] REPOSITORY TYPE CODE TESTS RESULT OUT OF REFERENCE UNITS RANGE LAB L501.080 70-110 mg/dL High BEDSIDE GLU 221 Result Comment: Insulin Given MANAGEMENT OF PATIENT CARE PER NURSING PROTOCOL Performed By: #### L501.080 #### [facility] Point of Care [address] [facility] [place] [address] LACTIC ACID Collected: 07/07/2018 Status: F Source: [place] 8:10 PM [facility] REPOSITORY TYPE CODE TESTS RESULT OUT OF REFERENCE UNITS RANGE LAB L503.6005 0.4-2.0 mmol/L High LACTIC ACID 2.3 Result Comment: Critical Result(s) Called at: 21:26:50 07/07/2018 by: Kerri EDGE Performed By: #### L503.6005 #### [facility] [address] [facility] [place], [address] HISTORY AND PHYSICAL Observed: 07/07/2018 Status: F Source: [place] EXAM 7:11 PM [facility] REPOSITORY [facility] Medical Records Department [address] [place] [address] History and Physical 07/07/18 1654 MR#: [id number] Acct: [id number] Name: EDEL LANG Rep #: [id number] : 1965 52 From: Salinas Heard MD PCP: Terrie Lopez MD Status: ADM IN Location: [place] [address]-1 Problem List (1) Cellulitis Status: Acute (2) HTN (hypertension) Status: Chronic (3) Bipolar disorder Status: Chronic (4) Migraines Status: Chronic (5) Stasis dermatitis of both legs Status: Chronic (6) Super obese Status: Chronic (7) Type II diabetes mellitus Status: Chronic (8) GERD (gastroesophageal reflux disease) Status: Chronic (9) COPD Status: Chronic History of Present Illness Date of Admission: 07/07/18 Chief Complaint: LLE swelling and pain The patient is a 52 year old F with a h/o of chronic venous stasis, previous LLE injury with chronic infections, DM2, HTN, Bipolar and migraines presents to the ER after 24 hours of increase redness, pain in her LLE as well as a fever to 102. She initially injured her LLE when she was helping to clear away trees years ago. Since she has had that leg have intermittent infections. She has only noticed that the leg was warm and painful yesterday, but she has noticed that the leg has been more swollen over the last few weeks. She has not been going to the wound clinic recently as she says her wound was healed, but yesterday she noticed some drainage though it is not draining now. In the ER she was given Vancomycin since she is allergic to PCN and cephalosporins. Past Medical History Past Medical History (Chronic Problems): Chronic Problems (Last Updated 02/18/18 @ 13:39 by Vida Gunn) HTN (hypertension) (Chronic) Pain syndrome, chronic (Chronic) Bipolar disorder (Chronic) Migraines (Chronic) Obstructive sleep apnea (Chronic) Stasis dermatitis of both legs (Chronic) Venous insufficiency of both lower extremities (Chronic) Super obese (Chronic) ADHD (attention deficit hyperactivity disorder) (Chronic) Benign hypertension (Chronic) Type II diabetes mellitus (Chronic) GERD (gastroesophageal reflux disease) (Chronic) COPD (Chronic) Open wound of left lower extremity (Chronic) Medical History: Medical History (Last Updated 02/18/18 @ 13:39 by Vida Gunn) Arthritis M19.90 Asthma J45.909 Back pain M54.9 COPD (chronic obstructive pulmonary disease) J44.9 Diabetes E11.9 Fatigue R53.83 Hemorrhoids K64.9 Knee pain M25.569 Migraines G43.909 HTN (hypertension) I10 Allergies cefazolin sodium [From [facility]] Allergy (Verified 07/07/18 13:11) Hives Penicillins Allergy (Verified 07/07/18 13:11) Hives Home Medications: Ambulatory Orders Medication Instructions Recorded Buspirone HCl 20 mg PO TID PRN PRN 03/05/17 Surgical History: Surgical History (Last Updated 02/18/18 @ 13:39 by Vida Gunn) H/O hernia repair Z98.890, Z87.19 Hx of section Z98.891 Hx of hysterectomy Z90.710 Kidney stone N20.0 knee scope Surgical History: herniorrhaphy, hysterectomy, - - tubes in ears, knee scopes, dr malik for left anterior leg wound, hernia repair, carpal tunnel surgery bilateral Psychiatric History: Bipolar Lives: With Family Smoking Status: Never smoker Alcohol: None Drugs: None - *Family History Maternal Family History: Family History (Last Updated 02/18/18 @ 13:39 by Vida Gunn) Other Hypertension Kidney disease History Items: Heart Disease, Hypertension, Stroke Paternal Family History: Family History (Last Updated 02/18/18 @ 13:39 by Vida Gunn) Other Hypertension Kidney disease History Items: Hypertension, Stroke, - Review of Systems Constitutional: Reports: Fever Eyes: Denies: Blurred vision, Double vision HEENT: Denies: Head Aches, Sinus Congestion, Sinus Drainage Cardiovascular: Reports: Edema. Denies: Chest Pain Respiratory: Denies: Cough, Shortness of breath at rest, Sputum production Gastrointestinal: Denies: Abdominal Pain, Nausea, Vomiting Genitourinary: Denies: Dysuria Musculoskeletal: Denies: Joint Pain, Joint Tenderness Skin: Reports: Rash, Skin Changes Psychiatric: Reports: Anxiety, Depression VTE Information - Inpt Only VTE Present on Admission: No Patient Problems: Active and Suspected Problems (Last Updated 02/18/18 @ 13:39 by Vida Gunn) Cellulitis (Acute) - Physical Exam General: Alert, Oriented x3, Cooperative, No apparent distress HEENT: Atraumatic, PERRLA, EOMI, Normocephalic Oral: Dry Mucosa Neck: Supple, No JVD Lungs: Clear to auscultation, Normal air movement, No rhonchi, No wheeze, No rales Cardiovascular: Regular rate, Regular Rhythm, Normal S1, Normal S2, No murmurs Abdomen: Soft, Non Tender, Non-Distended, No Hepato-splenomegaly Skin: - - LLE is edematous and red/warm, no calf pain and hommens is negative. Area of what appears to be a previous open wound on her left perera that is currently not draining Vital Signs Temp Pulse Resp BP Pulse Ox 97.5 F L 68 16 123/71 H 97 07/07/18 13:11 07/07/18 13:11 07/07/18 16:40 07/07/18 16:40 07/07/18 16:40 Assessment/Plan All Active Problems (Last Updated 02/18/18 @ 13:39 by Vida Gunn) Cellulitis (Acute) Calculi, ureter (Acute) Fluid overload (Acute) UTI (urinary tract infection) (Acute) Right flank pain (Acute) 1. Cellulitis/LLE swelling and pain - She is allergic to ancef and PCN, will start clinda for probable strep cellulitis - IVF@100 - Will obtain dopplers as she is having LLE edema 2. Bipolar disorder/migraines - Will continue with seroquel and depakote - Discussed that the seroquel may not be a good fit given her weight and DM - Possible to change to lamictal if her psychiatrist agrees - Ok to continue with nadolol, valium, buspar and wellbutrin 3. DM2 - On glimepiride at home - Last AIc in 2017 is 7.7 she says recently she went up to 9.2 though I cant find record - Medium-High SSI started and will monitor 4. GERD - Stable - c/w PPI 5. Chronic pain - Stable on gabapentin and tramadol - will monitor renal function given how high her gabapentin is DVT: Lovenox Diet: DM Code Visit Inpatient E AND M: [id number] Init Hosp L3 07/07/181910 <Electronically signed by Salinas Heard MD> Date Salinas Heard MD [facility] Signature: Date (if applicable) CC: Terrie Lopez MD; Salinas Heard MD Signed VALPROIC ACID Collected: 07/07/2018 Status: F Source: [place] ([place]) LEVEL 6:05 PM [facility] REPOSITORY TYPE CODE TESTS RESULT OUT OF REFERENCE UNITS RANGE LAB L501.8100 50-100 ug/mL Low VALPROIC ACID < 3 Performed By: #### L501.8100 #### [facility] [address] [place], [address] EMERGENCY DEPARTMENT Observed: 07/07/2018 Status: F Source: [place] SUMMARY 3:42 PM [facility] REPOSITORY [facility] Medical Records Department [address] [place] [address] Emergency Department Summary 07/07/18 1539 MR#: [id number] Acct: [id number] Name: EDEL LANG Rep #: [id number] : 1965 52 From: Eliza Aldana DO PCP: Terrie Lopez MD Status: REG ER - ER Visit Summary Date of Service: 07/07/18 Chief Complaint: [Redness and swelling to both lower extremities] History of Present Illness: The patient is a 52 F [presents the emergency department with complaint of pain, redness, and swelling to both lower extremities. Patient states most of the discomfort is in the left leg. Patient has history of a chronic wound on the left leg that she has had for years that at times will open up and drain. Patient has had history of cellulitis that required admission for IV antibiotics. Patient states that last evening she had a fever up to 102. Patient's had chills and has felt hot and cold. Patient currently on doxycycline for history of COPD exacerbation.] Physical Examination: [HEENT-PERRLA, EOMI. Cranial nerves II through XII grossly intact. TMs clear. Mucous membranes moist. No adenopathy. Cardiovascular-regular rate and rhythm without murmur or ectopy Lungs-clear to auscultation, chest wall stable without crepitus or subcu emphysema Abdomen-normoactive bowel sounds, soft, nontender, no rebound or rigidity, no peritoneal signs. Extremities-intact 4, normal range of motion, normal pulses, atraumatic]. Left lower extremity-patient is noted to have erythema and cellulitic changes involving the leg from just below the knee down to the foot. She has a chronic wound noted with us open area that seeping some serous fluid. Patient also has some faint erythema noted to the right lower extremity from the knee to the ankle. No lymphangitic streaking. Patient has normal pulses. Test Results: [CBC with differential obtained showed a white blood cell count of 4.8, hemoglobin 11, hematocrit 36, platelets 147. Chemistries pending.] Emergency Department Course and Treatment: [Patient was started on vancomycin as well as Unasyn.] Treatment Plan: [Admit for IV antibiotics] Disposition: [Admit] Impression: [Cellulitis bilateral lower extremities] This note was generated with [employer] dictation software. It may contain incorrect words, spelling, and punctuation that were not noted in review of the chart prior to signing ED Disposition - Plan for ED Patient: Chief Complaint: Cellulitis Referrals: Terrie Lopez MD [Primary Care Provider] - What to do if you have Problems For any increased pain, shortness of breath, bleeding, nausea or vomiting, chest pain, or any unexpected problems, contact your Primary Care Provider. Call [facility] ([phone]) or report to the closest Emergency Room. Call 911 if necessary. 07/07/18 1542 <Electronically signed by Eliza Aldana DO> Date Eliza Aldana DO Cosigner Signature (If Indicated): Date CC: Terrie Lopez MD LACTIC ACID Collected: 07/07/2018 Status: F Source: [place] 3:10 PM [facility] REPOSITORY Order Comment: Yes/No query for Sepsis Lactate Rule Y TYPE CODE TESTS RESULT OUT OF REFERENCE UNITS RANGE LAB L503.6005 0.4-2.0 mmol/L High LACTIC ACID 2.2 Result Comment: Critical Result(s) Called at: 15:57:49 07/07/2018 by: Kerri JANSEN Performed By: #### L503.6005 #### [facility] [address] [place], [address] CBC W/DIFF, AUTOMATED Collected: 07/07/2018 Status: F Source: [place] 3:06 PM [facility] REPOSITORY TYPE CODE TESTS RESULT OUT OF RANGE REFERENCE UNITS LAB L100.1000 4.4-11.0 K/mm3 Normal WBC 4.8 LAB L100.1200 4.2-5.4 M/mm3 Low RBC 4.18 LAB L100.1300 12.0-15.0 g/dl Low HGB 11.0 LAB L100.1400 37-47 % Low HCT 36.0 LAB L100.1500 81-99 fL Normal MCV 86.1 LAB L100.1600 27.0-32.0 pg Low MCH 26.3 LAB L100.1700 32-36 g/gl Low MCHC 30.6 LAB L100.1810 11.6-14.6 % High RDW CV 15.5 LAB L100.1820 35.1-43.9 fl High RDW SD 48.2 LAB L100.1900 150-450 K/mm3 Low PLT 147 LAB L100.2000 6.2-12.0 fl Normal MPV 9.7 LAB L100.2100 47-70 % High NEUT% 72.0 LAB L100.2200 19-41 % Normal LY% 19.0 LAB L100.2300 0-10 % Normal MONO% 8.8 LAB L100.2400 0-5 % Normal EO% 0.0 LAB L100.2500 0-1 % Normal BASO% 0.0 LAB L100.2550 0.0-0.9 % Normal IM GRAN % 0.200 Result Comment: IG% - Immature Granulocytes (promyelocytes, myelocytes and metamyelocytes) > 1% indicates that a LEFT SHIFT is Present. LAB L100.2620 2.0-7.7 X10 3/uL Normal Absolute Neut 3.5 LAB L100.2720 0.83-4.51 X10 3/ul Normal Absolute Lymph 0.91 Performed By: #### L100.0100 #### [facility] [address] [place], [address] BASIC METABOLIC Collected: 07/07/2018 Status: F Source: [place] PROFILE (BMP) 3:06 PM [facility] REPOSITORY TYPE CODE TESTS RESULT OUT OF RANGE REFERENCE UNITS LAB L501.0100 74-106 mg/dL High GLU 158 Result Comment: Fasting Glucose result greater than or equal to 126 mg/dL suggests DIABETES MELLITUS per A.D.A. criteria. Please note revised GLUCOSE reference range effective 2017. LAB L501.1000 7-18 mg/dL Normal BUN 11 LAB L501.1100 0.55-1.02 mg/dL Normal CREAT,SERUM 0.66 Result Comment: The validity of the calculated GFR AND GFRAA in patients over 70 years has not been determined. Clinical correlation is essential. LAB L501.1110 >60 mL/min Normal EST GFR 99 Result Comment: Non- GFR Calc LAB L501.1115 >60 mL/min Normal EST GFR - AA 120 Result Comment: GFR Calc LAB L501.1255 ml/min Normal Estimated CRCL 87.68 LAB L501.1300 10-20 RATIO Normal BUN/CRE 16.7 LAB L501.2200 8.5-10 mg/dL Low .1 CA 8.4 LAB L501.5300 136-14 mmol/L Normal 5 NA 137 LAB L501.5600 3.5-5. mmol/L Normal 1 K 4.5 Result Comment: Moderate Hemolysis, Result may be falsely increased. LAB L501.5900 98-107 mmol/L Normal CL 100 LAB L501.6100 21.0-32.0 mmol/L Normal CO2 32.0 LAB L501.6200 5-15 Normal 5 GAP Performed By: #### L500.2500 #### [facility] [address] [place], [place], [address] PROGRESS Observed: 07/03/2018 Status: COMPLETED Source: [place] 6:15 PM [facility] REPOSIT[facility] HNO ID: [id number] Author: Terrie Lopez Service: (none) Author Type: Physician Type: Progress Notes Filed: 07/16/2018 10:57 PM Note Text: Patient presents with: Recheck: Follow up SUBJECTIVE: Edel Lang is a 52 year old year old lady here today for 3 month and ER follow up appointment for review of medical conditions. Prednisone 40 mg daily for like 5 days. Has one more day left. Sugars 200's. Doxycycline for COPD exacerbation. Will need work release to go back . Still struggling with migraines. Wonders about Relpax. Cannot function with migraines. BP headaches different--this is better now that BP down with adjusting med. Trying CBD oil from [employer] drops. Helping with pain. PAST MEDICAL HISTORY Diagnosis Date - FIBROMYALGIA - Cellulitis and abscess of unspecified site 11/26 right leg - Depressive disorder, not elsewhere classified - Dysmetabolic syndrome X 08/09/2006 - Esophageal reflux Gastroesophageal reflux - Generalized anxiety disorder - Hx of cystoscopy 09/11/2017 - Localized osteoarthrosis not specified whether primary or secondary, other specified sites bilateral knees - Morbid obesity with BMI of 50.0-59.9, adult (HCC) - Other genital herpes 08/09/2006 - Type II or unspecified type diabetes mellitus without mention of complication, not stated as uncontrolled - Unspecified asthma(493.90) - Unspecified essential hypertension Essential hypertension - Whooping cough, unspecified organism 11/26 Current Outpatient Prescriptions: fluticasone (FLONASE) 50 mcg/actuation nasal spray Use 2 Sprays in each nostril once daily. mupirocin (BACTROBAN) 2 % ointment APPLY TO AFFECTED AREA ONCE DAILY nadolol (CORGARD) 80 mg tablet Take 2 tablets by mouth once daily. lidocaine (LMX) 4 % cream Apply thin layer to affected area three times a day as needed for pain traMADol (ULTRAM) 50 mg tablet Take 1-2 tablets by mouth every 6 hours as needed for up to 90 days. ondansetron orally disintegrating (ZOFRAN ODT) 4 mg disintegrating tablet Take 1 tablet by mouth every 8 hours as needed for Nausea/Vomiting. omeprazole (PRILOSEC) 20 mg capsule TAKE 1 CAPSULE BY MOUTH DAILY fluconazole (DIFLUCAN) 150 mg tablet 1 tablet today and repeat in 72 hours oxybutynin ER (DITROPAN XL) 15 mg 24 hr Extended Rel Tab TAKE 1 TABLET BY MOUTH ONCE DAILY. lisinopril (ZESTRIL, PRINIVIL) 5 mg tablet Take 1 tablet by mouth once daily. (Patient taking differently: Take 20 mg by mouth once daily. ) orphenadrine ER (NORFLEX) 100 mg tablet Take 1 tablet by mouth twice daily as needed for Muscle Spasm. dicyclomine (BENTYL) 20 mg tablet Take 1 tablet by mouth three times daily. valACYclovir (VALTREX) 500 mg tablet Take 1 tablet by mouth once daily. divalproex ER (DEPAKOTE ER) 500 mg 24 hr tablet take 1 tablet by mouth daily guaiFENesin (MUCINEX) 600 mg 12 hr tablet Take 2 tablets by mouth twice daily as needed. gabapentin (NEURONTIN) 600 mg tablet TAKE 2 TABLETS THREE TIMES A DAY hydrocortisone (ANUSOL-HC) 2.5 % rectal cream 1 application by RECTAL route twice daily. As directed blood sugar diagnostic (BLOOD GLUCOSE TEST) test strip Test blood sugar(s) 3 times daily. Dx: Type 2 DM - Uncontrolled E11.65 Insulin: No glimepiride (AMARYL) 2 mg tablet Take 2 tablets by mouth twice daily with meals. As directed Lancets lancets Test blood sugar(s) 3 times daily. Dx: Type 2 DM - Uncontrolled E11.65 Insulin: No diazePAM (VALIUM) 5 mg tablet Take 10 mg by mouth once daily as needed for Anxiety. triamcinolone acetonide (KENALOG) 0.1 % cream Apply 1 application to affected area twice daily. For itchy lesions for 2 weeks (torso or extremities) as directed mometasone-formoterol (DULERA) 100-5 mcg/actuation inhaler Inhale 2 Puffs as instructed twice daily. albuterol HFA (VENTOLIN HFA) 90 mcg/actuation inhaler Inhale 2 Puffs as instructed every 4 hours as needed for Wheezing/Shortness of Breath. blood sugar diagnostic (FREESTYLE LITE STRIPS) test strip Test blood sugar(s) 3 times daily. Dx: Type 2 DM - Controlled E11.9 Insulin: Yes CPAP Initiate CPAP @ 14 cm of water with humidification. EPR setting of 3. Mask (per patient preference) optional chin strap (if indicated) , filters, tubing, humidifier and lifetime supplies. COMPOUNDED PRESCRIPTION Nebulizer for home use. Diagnosis: Asthma exacerbation QUEtiapine (SEROQUEL) 300 mg tablet Take 1 tablet by mouth daily at bedtime. Also takes [address] Patterson. (Patient taking differently: Take 300 mg by mouth daily at bedtime. ) promethazine (PHENERGAN) 25 mg tablet Take 1 tablet by mouth every 6 hours as needed. (Patient not taking: Reported on 07/03/2018 ) busPIRone (BUSPAR) 5 mg tablet Take 15 mg by mouth twice daily. Dose needs clarified with patients pharmacy. Benzonatate 200 mg capsule Take 1 capsule by mouth three times daily as needed. (Patient not taking: Reported on 06/07/2018 ) Omeprazole Magnesium (PRILOSEC OTC) 20 mg tablet Take 1 tablet by mouth daily before breakfast. 1/2 hr before meal. (Patient not taking: Reported on 07/03/2018 ) benzocaine-menthol (CEPACOL) 15-2.6 mg lozg lozenge Take 1 Lozenge by mouth every 3 hours as needed. (Patient not taking: Reported on 06/07/2018 ) No current facility-administered medications for this visit. OBJECTIVE: BP 112/70 Pulse 68 Resp 20 Wt (!) 148.3 kg (327 lb) BMI 54.42 kg/m? Patient is alert, oriented times 3, no apparent distress, affect is bright, reactive. Last 5 Encounter BP Readings: Date: BP: 07/03/2018 112/70 06/07/2018 124/82 05/27/2018 130/78 05/17/2018 114/82 04/27/2018 130/74 Last 5 Encounter Wt Readings: Date: Wt: 07/03/2018 148.3 kg (327 lb) 06/07/2018 148.8 kg (328 lb) 05/27/2018 144.7 kg (319 lb) 04/27/2018 146.1 kg (322 lb 0.6 oz) 04/20/2018 142.4 kg (314 lb) Heart: Regular rate, rhythm, no murmurs, gallops, rubs. Lungs: Clear to auscultation, bilaterally, breathing non labored. Ext: No cyanosis, clubbing, or edema. Component Latest Ref Rng AND Units 03/01/2018 WBC 3.70 - 11.00 k/uL 4.57 RBC 3.90 - 5.20 m/uL 4.72 Hemoglobin 11.5 - 15.5 g/dL 11.9 Hematocrit 36.0 - 46.0 % 38.0 MCV 80.0 - 100.0 fL 80.5 MCH 26.0 - 34.0 pG 25.2 (L) MCHC 30.5 - 36.0 g/dL 31.3 RDW-CV 11.5 - 15.0 % 18.0 (H) Platelet Count 150 - 400 k/uL 166 MPV 9.0 - 12.7 fL 10.0 Neut% % 70.0 Abs Neut (ANC) 1.45 - 7.50 k/uL 3.18 Lymph% % 19.3 Abs Lymph 1.00 - 4.00 k/uL 0.88 (L) Smyth% % 10.7 Abs Smyth <0.87 k/uL 0.49 Eosin% % 0.0 Abs Eosin <0.46 k/uL <0.03 Baso% % 0.0 Abs Baso <0.11 k/uL <0.03 Nucleated Reds 0 /100 WBC 0.0 Absolute nRBC <0.01 k/uL <0.01 Diff Type Auto Diff Protein, Total 6.3 - 8.0 g/dL 7.2 Albumin 3.9 - 4.9 g/dL 4.0 Calcium 8.5 - 10.2 mg/dL 8.7 Bilirubin, Total 0.2 - 1.3 mg/dL 0.3 Alkaline Phosphatase 32 - 117 U/L 54 AST 13 - 35 U/L 25 Glucose 74 - 99 mg/dL 179 (H) BUN 7 - 21 mg/dL 14 Creatinine 0.58 - 0.96 mg/dL 0.84 Sodium 136 - 144 mmol/L 138 Potassium 3.7 - 5.1 mmol/L 4.1 Chloride 97 - 105 mmol/L 100 CO2 22 - 30 mmol/L 23 Anion Gap 9 - 18 mmol/L 15 ALT 7 - 38 U/L 21 eGFR- >60 eGFR-All Other Races . >60 Hemoglobin A1C 4.3 - 5.6 % 7.6 (H) Estimated Average Glucose mg/dL 171 ASSESSMENT AND PLAN: Encounter Diagnosis ICD-10-CM 1. Type 2 diabetes mellitus without complication, without long-term current use of insulin ([facility]) E11.9 HB A1C B/O lisinopril (ZESTRIL, PRINIVIL) 10 mg tablet 2. Pain of left lower leg M79.662 orphenadrine ER (NORFLEX) 100 mg tablet 3. Antibiotic-induced yeast infection B37.9 fluconazole (DIFLUCAN) 150 mg tablet T36.95XA 4. Ulcer of leg, chronic, left, limited to breakdown of skin ([facility]) L97.921 collagenase (SANTYL) ointment oxyCODONE-acetaminophen (PERCOCET) 5-325 mg tablet 5. Infected ulcer of skin, limited to breakdown of skin ([facility]) L98.491 collagenase (SANTYL) ointment L08.9 oxyCODONE-acetaminophen (PERCOCET) 5-325 mg tablet looks like infection being prevented by doxy for COPD exac 6. Back strain, sequela S39.012S oxyCODONE-acetaminophen (PERCOCET) 5-325 mg tablet 7. Acute midline low back pain without sciatica M54.5 oxyCODONE-acetaminophen (PERCOCET) 5-325 mg tablet 8. Essential hypertension I10 lisinopril (ZESTRIL, PRINIVIL) 10 mg tablet Work excuse and release to work given. Discussed itching but no rash. Above issues addressed with patient. Patient involved in shared decision making for management of her medical issues. History and medications reviewed. Epic updated as needed Refills taken care of and meds adjusted as indicated after reviewed history, exam and labs. Health Maintenance reviewed. Updated record and/or ordered tests as recorded. Encouraged on efforts at healthy diet and regular exercise and adequate sleep. The majority of the visit was spent counseling and/or coordinating care for the patient. [id number] time was at least 25 minutes. Terrie Lopez MD CNOV Observed: 07/03/2018 Status: COMPLETED Source: [place] 5:40 PM [facility] REPOSITORY Office Visit (INTMWS) EDEL LANG ([id number]) 1965 F Date Time Provider Department 07/03/18 5:40 PM TERRIE LOPEZ INTMWS During your visit today, we recorded the following information about you: Pulse Respiration Blood pressure Weight 68/minute 20/minute 112/70 148.3 kg Terrie Lopez MD 07/16/2018 10:57 PM Signed Patient presents with: Recheck: Follow up SUBJECTIVE: Edel Lang is a 52 year old year old lady here today for 3 month and ER follow up appointment for review of medical conditions. Prednisone 40 mg daily for like 5 days. Has one more day left. Sugars 200's. Doxycycline for COPD exacerbation. Will need work release to go back . Still struggling with migraines. Wonders about Relpax. Cannot function with migraines. BP headaches different--this is better now that BP down with adjusting med. Trying CBD oil from [employer] drops. Helping with pain. PAST MEDICAL HISTORY Diagnosis Date - FIBROMYALGIA - Cellulitis and abscess of unspecified site 11/26 right leg - Depressive disorder, not elsewhere classified - Dysmetabolic syndrome X 08/09/2006 - Esophageal reflux Gastroesophageal reflux - Generalized anxiety disorder - Hx of cystoscopy 09/11/2017 - Localized osteoarthrosis not specified whether primary or secondary, other specified sites bilateral knees - Morbid obesity with BMI of 50.0-59.9, adult (HCC) - Other genital herpes 08/09/2006 - Type II or unspecified type diabetes mellitus without mention of complication, not stated as uncontrolled - Unspecified asthma(493.90) - Unspecified essential hypertension Essential hypertension - Whooping cough, unspecified organism 11/26 Current Outpatient Prescriptions: fluticasone (FLONASE) 50 mcg/actuation nasal spray Use 2 Sprays in each nostril once daily. mupirocin (BACTROBAN) 2 % ointment APPLY TO AFFECTED AREA ONCE DAILY nadolol (CORGARD) 80 mg tablet Take 2 tablets by mouth once daily. lidocaine (LMX) 4 % cream Apply thin layer to affected area three times a day as needed for pain traMADol (ULTRAM) 50 mg tablet Take 1-2 tablets by mouth every 6 hours as needed for up to 90 days. ondansetron orally disintegrating (ZOFRAN ODT) 4 mg disintegrating tablet Take 1 tablet by mouth every 8 hours as needed for Nausea/Vomiting. omeprazole (PRILOSEC) 20 mg capsule TAKE 1 CAPSULE BY MOUTH DAILY fluconazole (DIFLUCAN) 150 mg tablet 1 tablet today and repeat in 72 hours oxybutynin ER (DITROPAN XL) 15 mg 24 hr Extended Rel Tab TAKE 1 TABLET BY MOUTH ONCE DAILY. lisinopril (ZESTRIL, PRINIVIL) 5 mg tablet Take 1 tablet by mouth once daily. (Patient taking differently: Take 20 mg by mouth once daily. ) orphenadrine ER (NORFLEX) 100 mg tablet Take 1 tablet by mouth twice daily as needed for Muscle Spasm. dicyclomine (BENTYL) 20 mg tablet Take 1 tablet by mouth three times daily. valACYclovir (VALTREX) 500 mg tablet Take 1 tablet by mouth once daily. divalproex ER (DEPAKOTE ER) 500 mg 24 hr tablet take 1 tablet by mouth daily guaiFENesin (MUCINEX) 600 mg 12 hr tablet Take 2 tablets by mouth twice daily as needed. gabapentin (NEURONTIN) 600 mg tablet TAKE 2 TABLETS THREE TIMES A DAY hydrocortisone (ANUSOL-HC) 2.5 % rectal cream 1 application by RECTAL route twice daily. As directed blood sugar diagnostic (BLOOD GLUCOSE TEST) test strip Test blood sugar(s) 3 times daily. Dx: Type 2 DM - Uncontrolled E11.65 Insulin: No glimepiride (AMARYL) 2 mg tablet Take 2 tablets by mouth twice daily with meals. As directed Lancets lancets Test blood sugar(s) 3 times daily. Dx: Type 2 DM - Uncontrolled E11.65 Insulin: No diazePAM (VALIUM) 5 mg tablet Take 10 mg by mouth once daily as needed for Anxiety. triamcinolone acetonide (KENALOG) 0.1 % cream Apply 1 application to affected area twice daily. For itchy lesions for 2 weeks (torso or extremities) as directed mometasone-formoterol (DULERA) 100-5 mcg/actuation inhaler Inhale 2 Puffs as instructed twice daily. albuterol HFA (VENTOLIN HFA) 90 mcg/actuation inhaler Inhale 2 Puffs as instructed every 4 hours as needed for Wheezing/Shortness of Breath. blood sugar diagnostic (FREESTYLE LITE STRIPS) test strip Test blood sugar(s) 3 times daily. Dx: Type 2 DM - Controlled E11.9 Insulin: Yes CPAP Initiate CPAP @ 14 cm of water with humidification. EPR setting of 3. Mask (per patient preference) optional chin strap (if indicated) , filters, tubing, humidifier and lifetime supplies. COMPOUNDED PRESCRIPTION Nebulizer for home use. Diagnosis: Asthma exacerbation QUEtiapine (SEROQUEL) 300 mg tablet Take 1 tablet by mouth daily at bedtime. Also takes [address] Patterson. (Patient taking differently: Take 300 mg by mouth daily at bedtime. ) promethazine (PHENERGAN) 25 mg tablet Take 1 tablet by mouth every 6 hours as needed. (Patient not taking: Reported on 07/03/2018 ) busPIRone (BUSPAR) 5 mg tablet Take 15 mg by mouth twice daily. Dose needs clarified with patients pharmacy. Benzonatate 200 mg capsule Take 1 capsule by mouth three times daily as needed. (Patient not taking: Reported on 06/07/2018 ) Omeprazole Magnesium (PRILOSEC OTC) 20 mg tablet Take 1 tablet by mouth daily before breakfast. 1/2 hr before meal. (Patient not taking: Reported on 07/03/2018 ) benzocaine-menthol (CEPACOL) 15-2.6 mg lozg lozenge Take 1 Lozenge by mouth every 3 hours as needed. (Patient not taking: Reported on 06/07/2018 ) No current facility-administered medications for this visit. OBJECTIVE: BP 112/70 Pulse 68 Resp 20 Wt (!) 148.3 kg (327 lb) BMI 54.42 kg/m? Patient is alert, oriented times 3, no apparent distress, affect is bright, reactive. Last 5 Encounter BP Readings: Date: BP: 07/03/2018 112/70 06/07/2018 124/82 05/27/2018 130/78 05/17/2018 114/82 04/27/2018 130/74 Last 5 Encounter Wt Readings: Date: Wt: 07/03/2018 148.3 kg (327 lb) 06/07/2018 148.8 kg (328 lb) 05/27/2018 144.7 kg (319 lb) 04/27/2018 146.1 kg (322 lb 0.6 oz) 04/20/2018 142.4 kg (314 lb) Heart: Regular rate, rhythm, no murmurs, gallops, rubs. Lungs: Clear to auscultation, bilaterally, breathing non labored. Ext: No cyanosis, clubbing, or edema. Component Latest Ref Rng AND Units 03/01/2018 WBC 3.70 - 11.00 k/uL 4.57 RBC 3.90 - 5.20 m/uL 4.72 Hemoglobin 11.5 - 15.5 g/dL 11.9 Hematocrit 36.0 - 46.0 % 38.0 MCV 80.0 - 100.0 fL 80.5 MCH 26.0 - 34.0 pG 25.2 (L) MCHC 30.5 - 36.0 g/dL 31.3 RDW-CV 11.5 - 15.0 % 18.0 (H) Platelet Count 150 - 400 k/uL 166 MPV 9.0 - 12.7 fL 10.0 Neut% % 70.0 Abs Neut (ANC) 1.45 - 7.50 k/uL 3.18 Lymph% % 19.3 Abs Lymph 1.00 - 4.00 k/uL 0.88 (L) Smyth% % 10.7 Abs Smyth <0.87 k/uL 0.49 Eosin% % 0.0 Abs Eosin <0.46 k/uL <0.03 Baso% % 0.0 Abs Baso <0.11 k/uL <0.03 Nucleated Reds 0 /100 WBC 0.0 Absolute nRBC <0.01 k/uL <0.01 Diff Type Auto Diff Protein, Total 6.3 - 8.0 g/dL 7.2 Albumin 3.9 - 4.9 g/dL 4.0 Calcium 8.5 - 10.2 mg/dL 8.7 Bilirubin, Total 0.2 - 1.3 mg/dL 0.3 Alkaline Phosphatase 32 - 117 U/L 54 AST 13 - 35 U/L 25 Glucose 74 - 99 mg/dL 179 (H) BUN 7 - 21 mg/dL 14 Creatinine 0.58 - 0.96 mg/dL 0.84 Sodium 136 - 144 mmol/L 138 Potassium 3.7 - 5.1 mmol/L 4.1 Chloride 97 - 105 mmol/L 100 CO2 22 - 30 mmol/L 23 Anion Gap 9 - 18 mmol/L 15 ALT 7 - 38 U/L 21 eGFR- >60 eGFR-All Other Races . >60 Hemoglobin A1C 4.3 - 5.6 % 7.6 (H) Estimated Average Glucose mg/dL 171 ASSESSMENT AND PLAN: Encounter Diagnosis ICD-10-CM 1. Type 2 diabetes mellitus without complication, without long-term current use of insulin ([facility]) E11.9 HB A1C B/O lisinopril (ZESTRIL, PRINIVIL) 10 mg tablet 2. Pain of left lower leg M79.662 orphenadrine ER (NORFLEX) 100 mg tablet 3. Antibiotic-induced yeast infection B37.9 fluconazole (DIFLUCAN) 150 mg tablet T36.95XA 4. Ulcer of leg, chronic, left, limited to breakdown of skin ([facility]) L97.921 collagenase (SANTYL) ointment oxyCODONE-acetaminophen (PERCOCET) 5-325 mg tablet 5. Infected ulcer of skin, limited to breakdown of skin ([facility]) L98.491 collagenase (SANTYL) ointment L08.9 oxyCODONE-acetaminophen (PERCOCET) 5-325 mg tablet looks like infection being prevented by doxy for COPD exac 6. Back strain, sequela S39.012S oxyCODONE-acetaminophen (PERCOCET) 5-325 mg tablet 7. Acute midline low back pain without sciatica M54.5 oxyCODONE-acetaminophen (PERCOCET) 5-325 mg tablet 8. Essential hypertension I10 lisinopril (ZESTRIL, PRINIVIL) 10 mg tablet Work excuse and release to work given. Discussed itching but no rash. Above issues addressed with patient. Patient involved in shared decision making for management of her medical issues. History and medications reviewed. Epic updated as needed Refills taken care of and meds adjusted as indicated after reviewed history, exam and labs. Health Maintenance reviewed. Updated record and/or ordered tests as recorded. Encouraged on efforts at healthy diet and regular exercise and adequate sleep. The majority of the visit was spent counseling and/or coordinating care for the patient. Zqmo-ck-[id number] time was at least 25 minutes. Terrie Lopez MD Referring Provider: TERRIE LOPEZ [[id number]] Allergies As of Date: 07/03/2018 Noted Allergy Reaction NIA (FEXOFENADINE HCL) 01/25/2006 12 - Shortness of Breath ANCEF (CEFAZOLIN SODIUM) 01/25/2006 4 - Hives CLINDAMYCIN 01/05/2007 6 - Diarrhea duoderm [Other] 05/21/2007 Comments: severe burning pain at point of contact. No redness. ELAVIL (AMITRIPTYLINE) 04/27/2007 Comments: hallucinations MACROBID (NITROFURANTOIN MONOHYD/*05/15/2007 4 - Hives NORVASC (AMLODIPINE) 12/11/2008 7 - Swelling Date Reviewed: 07/03/2018 Reviewed by: Tiffany Martin LPN - Fully Assessed Reason for Visit: Recheck [92] Cmt: Follow up Primary Visit Diagnosis:Type 2 diabetes mellitus without complication, without long-term current use of insulin (HCC) [E11.9] Other Visit Diagnoses:Pain of left lower leg [M79.662] Antibiotic-induced yeast infection [B37.9, T36.95XA] Ulcer of leg, chronic, left, limited to breakdown of skin (HCC) [L97.921] Infected ulcer of skin, limited to breakdown of skin (HCC) [L98.491, L08.9] Comment:looks like infection being prevented by doxy for COPD exac Back strain, sequela [S39.012S] Acute midline low back pain without sciatica [M54.5] Essential hypertension [I10] Visit for screening mammogram [Z12.31] Order(s):orphenadrine ER (NORFLEX) 100 mg tabletTake 1 tablet by mouth twice daily as needed for Muscle Spasm.Disp: 60 tabletRfl: 2 fluconazole (DIFLUCAN) 150 mg tablet1 tablet today and repeat in 72 hoursDisp: 2 tabletRfl: 0 rizatriptan (MAXALT) 5 mg tabletTake 1-2 tablets by mouth as needed. May repeat in 2 hours if neededDisp: 6 tabletRfl: 2 collagenase (SANTYL) ointmentApply 1 application to affected area once daily. To leg ulcers till healedDisp: 15 gRfl: 0 ondansetron orally disintegrating (ZOFRAN ODT) 4 mg disintegrating tabletTake 1 tablet by mouth every 8 hours as needed for Nausea/Vomiting.Disp: 12 tabletRfl: 2 [] oxyCODONE-acetaminophen (PERCOCET) 5-325 mg tabletTake 1 tablet by mouth three times daily as needed for up to 7 days.Disp: 21 tabletRfl: 0 HB A1C B/O [[id number]] Order #: [id number] lisinopril (ZESTRIL, PRINIVIL) 10 mg tabletTake 1 tablet by mouth twice daily. As directedDisp: 60 tabletRfl: 11 JG SCREENING [[id number]] Order #: [id number] FUTURE HEMOGLOBIN A1C (POC) [[id number]] Order #: [id number] #:[id number] Prescriptions as of 07/03/2018 Sig: ORPHENADRINE CITRATE ER 100 M* Take 1 tablet by mouth twice * FLUCONAZOLE 150 MG TABLET 1 tablet today and repeat in * ONDANSETRON 4 MG DISINTEGRATI* Take 1 tablet by mouth every * FLUTICASONE 50 MCG/ACTUATION * Use 2 Sprays in each nostril * MUPIROCIN 2 % TOPICAL OINTMENT APPLY TO AFFECTED AREA ONCE D* NADOLOL 80 MG TABLET Take 2 tablets by mouth once * LIDOCAINE 4 % TOPICAL CREAM Apply thin layer to affected * TRAMADOL 50 MG TABLET Take 1-2 tablets by mouth nathalie* OMEPRAZOLE 20 MG CAPSULE,MELINDA* TAKE 1 CAPSULE BY MOUTH DAILY OXYBUTYNIN CHLORIDE ER 15 MG * TAKE 1 TABLET BY MOUTH ONCE D* DICYCLOMINE 20 MG TABLET Take 1 tablet by mouth three * VALACYCLOVIR 500 MG TABLET Take 1 tablet by mouth once d* DIVALPROEX ER 500 MG TABLET,E* take 1 tablet by mouth daily GUAIFENESIN ER 600 MG TABLET,* Take 2 tablets by mouth twice* GABAPENTIN 600 MG TABLET TAKE 2 TABLETS THREE TIMES A * HYDROCORTISONE 2.5 % TOPICAL * 1 application by RECTAL route* BLOOD SUGAR DIAGNOSTIC STRIPS Test blood sugar(s) 3 times d* GLIMEPIRIDE 2 MG TABLET Take 2 tablets by mouth twice* LANCETS Test blood sugar(s) 3 times d* DIAZEPAM 5 MG TABLET Take 10 mg by mouth once kala* TRIAMCINOLONE ACETONIDE 0.1 %* Apply 1 application to affect* MOMETASONE-FORMOTEROL HFA 100* Inhale 2 Puffs as instructed * ALBUTEROL SULFATE HFA 90 MCG/* Inhale 2 Puffs as instructed * BLOOD SUGAR DIAGNOSTIC STRIPS Test blood sugar(s) 3 times d* CPAP Initiate CPAP @ 14 cm of wate* COMPOUNDED PRESCRIPTION Nebulizer for home use. Diagn* QUETIAPINE 300 MG TABLET Take 1 tablet by mouth daily * Patient taking differently: Take 300 mg by mouth daily at* RIZATRIPTAN 5 MG TABLET Take 1-2 tablets by mouth as * COLLAGENASE CLOSTRIDIUM HISTO* Apply 1 application to affect* OXYCODONE-ACETAMINOPHEN 5 MG-* Take 1 tablet by mouth three * LISINOPRIL 10 MG TABLET Take 1 tablet by mouth twice * X PROMETHAZINE 25 MG TABLET Take 1 tablet by mouth every * Patient not taking: Reported on 07/03/2018 BUSPIRONE 5 MG TABLET Take 15 mg by mouth twice josé* BENZONATATE 200 MG CAPSULE Take 1 capsule by mouth three* Patient not taking: Reported on 06/07/2018 OMEPRAZOLE MAGNESIUM 20 MG TA* Take 1 tablet by mouth daily * Patient not taking: Reported on 07/03/2018 BENZOCAINE-MENTHOL 15 MG-2.6 * Take 1 Lozenge by mouth every* Patient not taking: Reported on 06/07/2018 Problem List As Of Date 07/03/2018 Noted Resolved ESOPHAGEAL REFLUX [K21.9] More... Unspecified asthma(493.90) [J45.909] 06/02/2017 More... 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 Unspecified vitamin D deficiency [E55.9] INVALID FOR*02/27/2013 GENITAL HERPES NEC [A60.00] INVALID FOR* URGE AND STRESS MIXED INCONTINENCE [N39.46] INVALID FOR* LACERATION -NOT COMPLICATED BREAST [S21.009A] INVALID FOR*02/27/2013 Diabetes (HCC) [E11.9] INVALID FOR* Enthesopathy of unspecified site [M77.9] INVALID FOR*02/27/2013 Adenopathy, Hilar [R59.0] INVALID FOR* Major depressive disorder, recurrent episode (H*INVALID FOR* Abnormal mammogram, unspecified [R92.8] INVALID FOR*06/02/2017 Wound, open, breast [S21.009A] INVALID FOR*02/27/2013 Benign neoplasm of skin of lower limb, includin*INVALID FOR*02/27/2013 Umbilical hernia without mention of obstruction*INVALID FOR*06/02/2017 Ventral hernia, unspecified, without mention of*INVALID FOR*06/02/2017 Anxiety [F41.9] INVALID FOR* Vitamin d deficiency [E55.9] INVALID FOR* Urge incontinence of urine [N39.41] INVALID FOR*06/02/2017 Pain of left lower leg [M79.662] INVALID FOR* Carpal tunnel syndrome of right wrist [G56.01] INVALID FOR*06/02/2017 Morbid obesity with BMI of 45.0-49.9, adult (HC* ABRAM (obstructive sleep apnea) [G47.33] INVALID FOR* More... Left carpal tunnel syndrome [G56.02] INVALID FOR*06/02/2017 Asthma with COPD with exacerbation (HCC) [J44.1*INVALID FOR* HTN (hypertension) [I10] INVALID FOR* Ganglion cyst of finger of right hand [M67.441] INVALID FOR* More... Prescriptions ordered this encounter Disp Refills Start End ORPHENADRINE CITRATE ER 100 MG TABLE* 60 t* 2 07/03/2018 Route: ORAL Sig: Take 1 tablet by mouth twice daily as needed for Muscle Spasm. FLUCONAZOLE 150 MG TABLET 2 ta* 0 07/03/2018 Si tablet today and repeat in 72 hours RIZATRIPTAN 5 MG TABLET 6 ta* 2 07/03/2018 Route: ORAL Sig: Take 1-2 tablets by mouth as needed. May repeat in 2 hours if needed COLLAGENASE CLOSTRIDIUM HISTOLYTICUM* 15 g 0 07/03/2018 Route: TOPICAL Sig: Apply 1 application to affected area once daily. To leg ulcers till healed ONDANSETRON 4 MG DISINTEGRATING TABL* 12 t* 2 07/03/2018 Route: ORAL Sig: Take 1 tablet by mouth every 8 hours as needed for Nausea/Vomiting. OXYCODONE-ACETAMINOPHEN 5 MG-325 MG * 21 t* 0 07/03/2018 07/10/2018 Class: Print RX Route: ORAL Sig: Take 1 tablet by mouth three times daily as needed for up to 7 days. LISINOPRIL 10 MG TABLET 60 t* 11 07/03/2018 Route: ORAL Sig: Take 1 tablet by mouth twice daily. As directed Medications Discontinued During This Encounter orphenadrine ER (NORFLEX) 100 mg tab* 60 t* 2 03/01/2018 07/03/2018 Route: ORAL Sig: Take 1 tablet by mouth twice daily as needed for Muscle Spasm. Disc: Reason for discontinue is not on file. fluconazole (DIFLUCAN) 150 mg tablet 2 ta* 0 04/04/2018 07/03/2018 Si tablet today and repeat in 72 hours Disc: Reason for discontinue is not on file. ondansetron orally disintegrating (Z* 12 t* 2 05/17/2018 07/03/2018 Route: ORAL Sig: Take 1 tablet by mouth every 8 hours as needed for Nausea/Vomiting. Disc: Reason for discontinue is not on file. oxyCODONE-acetaminophen (PERCOCET) 5* 21 t* 0 05/17/2018 07/03/2018 Class: Print RX Cmt: Acute flare up of leg pain Route: ORAL Sig: Take 1 tablet by mouth three times daily as needed for up to 7 days. Disc: Reason for discontinue is not on file. lisinopril (ZESTRIL, PRINIVIL) 5 mg * 30 t* 11 03/01/2018 07/03/2018 Route: ORAL Sig: Take 1 tablet by mouth once daily. Patient taking differently: Take 20 mg by mouth once daily. Disc: Reason for discontinue is not on file. Disposition: Return for Will ad next appointments when needed. 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 Sincerely, Terrie Lopez MD Letter Text [facility] Terrie Lopez MD [address], [place] [address] July 03, 2018 Edel Lang : 1965 To whom it may concern: Please excuse from work missed secondary to illness from July 03, 2018 through July 04, 2018. She was seen for a doctor's appointment. Please allow to return to work without restrictions on July 05, 2018 Sincerely, Terrie Lopez MD Encounter Status:Closed by TERRIE LOPEZ MD on 07/16/18 12 LEAD ELECTROCARDIOGRAM Observed: 07/02/2018 Status: F Source: [place] 3:00 PM [facility] REPOSITORY [facility] Cardiovascular Services [address] [place] [address] 12 Lead EKG 06/27/18 1714 MR#: [id number] Acct: [id number] Name: EDEL LANG Rep #: [id number] : 1965 52 From: Rene Barton MD Attending Dr: Status: DEP ER Ordering Dr: Bronson King MD Date: 06/27/18 Location: ED Sex: F C Admitted: Test Reason : SOB Blood Pressure : / mmHG Vent. Rate : 067 BPM Atrial Rate : 067 BPM P-R Int : 176 ms QRS Dur : 100 ms QT Int : 384 ms P-R-T Axes : 052 004 -14 degrees QTc Int : 405 ms Normal sinus rhythm T wave abnormality, consider anterior ischemia Abnormal ECG Confirmed by RENE BARTON MD ([id number]), greeting card editor EM QUINTERO ([id number]) on 07/02/2018 3:00:15 PM Referred By: KYRIE Confirmed By:RENE BARTON MD 07/02/18 1500 Date Rene Barton MD CC: Jama King MD; Terrie Lopez MD Signed 12 LEAD ELECTROCARDIOGRAM Observed: 07/02/2018 Status: F Source: [place] 2:22 PM [facility] REPOSITORY [facility] Cardiovascular Services [address] [place] [address] 12 Lead EKG 06/29/18 1530 MR#: [id number] Acct: [id number] Name: EDEL LANG Rep #: [id number] : 1965 52 From: Rene Barton MD Attending Dr: Status: DEP ER Ordering Dr: Gurpreet Patel MD Date: 06/29/18 Location: ED Sex: F C Admitted: Test Reason : SOB Blood Pressure : / mmHG Vent. Rate : 066 BPM Atrial Rate : 066 BPM P-R Int : 160 ms QRS Dur : 100 ms QT Int : 390 ms P-R-T Axes : 029 -01 -11 degrees QTc Int : 408 ms Normal sinus rhythm T wave abnormality, consider anterior ischemia Abnormal ECG Confirmed by RENE BARTON MD ([id number]), greeting card editor EM QUINTERO ([id number]) on 07/02/2018 2:22:17 PM Referred By: JORGE Confirmed By:RENE BARTON MD 07/02/18 1422 Date Rene Barton MD CC: GURPREET PATEL MD; Terrie Lopez MD Signed EMERGENCY DEPARTMENT Observed: 06/29/2018 Status: F Source: [place] SUMMARY 7:33 PM [facility] REPOSITORY [facility] Medical Records Department [address] [place] [id number] Emergency Department Summary 06/29/18 1513 MR#: [id number] Acct: [id number] Name: EDEL LANG Rep #: [id number] : 1965 52 From: Gurpreet Patel MD PCP: Terrie Lopez MD Status: REG ER History of Present Illness Chief Complaint: Hypertension Informant: Patient Onset: Days - several Context: Gradual Onset Timing: Continuous Quality: ache Location: bifrontal headache Current Severity: Moderate Maximum Severity: Moderate Worsened by: nothing Relieved by: nothing Associated Symptoms: blurry vision, chest tightness, copd sx Narrative: Patient states she has been having a headache for several days, now having blurry vision with that. She has history of migraines but states this does not feel like a migraine. It is mostly bifrontal. Seems to be worse when her blood pressure is high, she has detected it into the 200s last couple days. Earlier today it was 148/114. She states her systolic is usually in the 120s. She has been compliant with her blood pressure medications. She was seen here 2 days ago for a COPD exacerbation, states that she is not a whole lot better, her chest tightness gets better with her albuterol inhalers. She was placed on doxycycline and prednisone and her symptoms seem worse since then. Blood sugars been in the 200s and she is urinating more frequently, that is high for her. - Past Medical History (1) HTN (hypertension) Status: Chronic (2) ADHD (attention deficit hyperactivity disorder) Status: Chronic (3) Benign hypertension Status: Chronic (4) Bipolar disorder Status: Chronic (5) COPD Status: Chronic (6) GERD (gastroesophageal reflux disease) Status: Chronic (7) Migraines Status: Chronic (8) Pain syndrome, chronic Status: Chronic (9) Stasis dermatitis of both legs Status: Chronic (10) Type II diabetes mellitus Status: Chronic (11) Venous insufficiency of both lower extremities Status: Chronic (12) Obstructive sleep apnea Status: Chronic Past Medical History - Allergies and Home Meds Allergies/Adverse Reactions: Allergies cefazolin sodium [From Anc] Allergy (Verified 06/29/18 14:51) Hives Penicillins Allergy (Verified 06/29/18 14:51) Hives Primary Care Physician: Terrie Lopez MD [Primary Care Provider] - Surgical History: herniorrhaphy, hysterectomy, - - tubes in ears, knee scopes, dr malik for left anterior leg wound, hernia repair, carpal tunnel surgery bilateral Smoking Status: Never smoker - Family History Maternal Family History: Family History (Last Updated 02/18/18 @ 13:39 by Vida Gunn) Other Hypertension Kidney disease Family History: Reports: Heart Disease, Hypertension, Stroke Paternal Family History: Family History (Last Updated 02/18/18 @ 13:39 by Vida Gunn) Other Hypertension Kidney disease Family History: Reports: Hypertension, Stroke, - Review of Systems All systems negative except as indicated Eyes: Reports: Blurred Vision - bilaterally Cardiovascular: Reports: Chest pain Respiratory: Reports: Dyspnea - wheezing, Cough, Sputum Gastrointestinal: Denies: Abdominal pain, Nausea, Vomiting, Diarrhea Genitourinary: Reports: Frequency. Denies: Dysuria, Hematuria Musculoskeletal: Reports: Myalgias, Swelling - chronic BLE. Denies: Extremity Pain Neurological: Reports: Headache. Denies: Weakness, Parasthesia, Numbness Physical Exam Vital Signs/Narrative: Vital Signs 06/29/18 14:51 97.7 F L 72 18 171/94 H 94 Inital Vital Signs reviewed: Yes General: Well nourished, Well developed, Obese, - - nad Head: Normocephalic, Atraumatic Eyes: Perrl, EOMI ENT: Moist mucous membranes, No rhinorrhea Neck: Supple, Nontender, No JVD Cardiovascular: Regular rate, Regular rhythm, No murmurs Respiratory: No distress, CTA bilaterally, Chest nontender, Diminished - throughout, symmetrically Abdomen: Soft, Nontender, Nondistended, Normal bowel sounds Back: Nontender, Normal Inspection Extremities: Nontender, Edema - BLE w/ dark discoloration distal legs, c/w chronic stasis dermatitis Skin: Normal color, No rash Neurological: Alert, Oriented x3, Cranial nerves II-XII grossly intact, Normal Strength, Normal Sensation Psychological: Normal affect Diagnostic/Tx/Re-eval Impressions Brain CT 06/29/18 15:07 IMPRESSION: No acute intracranial abnormality. Electronically Signed: Chace Queen, at 17:11 EDT Tel , Service support , Chest X-Ray 06/29/18 15:20 IMPRESSION: Elevated stable elevation of the right hemidiaphragm with overlying atelectasis. Otherwise, clear lungs. Electronically Signed: Chace Queen, at 16:52 EDT Tel , Service support , 06/29/18 15:07 Brain/Head without Contrast [CT] Stat 06/29/18 15:20 Chest 1 View (Portable) [RAD] Stat Laboratory Results WBC 7.1 (4.4-11.0) K/mm3 RBC 4.43 (4.2-5.4) M/mm3 WBC (4.4-11.0) K/mm3 RBC (4.2-5.4) M/mm3 - Rhythm Strip Rhythm Strip: Sinus Tach Rate: 65 Ectopy: None - EKG Initial EKG Interpretation: Sinus Rhythm, No Acute Injury Pattern, Inverted T-Waves - throughout precordium and inf, - - nml axis and intervals - Medical Decision Making Labs are unremarkable except for blood sugar 189 and mild prerenal azotemia, along with unremarkable urinalysis, chest x-ray, CT head. With bringing her blood pressure down to the 150s with a dose of clonidine, her headache is no different. It may not be related to her blood pressure, or the discomfort could be causing her blood pressure to be transiently elevated. Regardless, there is no evidence of endorgan damage. She developed some nausea which was successfully treated with Zofran. She will be discharged home but prior, we will treat her headache at her request with Reglan and a half dose of Toradol to see if that helps. Encouraged to follow-up with her doctor for recheck. ED Disposition - Plan for ED Patient: Disposition: Home or Assisted Living Chief Complaint: Hypertension Diagnosis: Accelerated hypertension, Cephalgia, Hyperglycemia due to type 2 diabetes mellitus Instructions: ED Hypertension Conf Out Of Control Referrals: Terrie Lopez MD [Primary Care Provider] - 3-5 Days What to do if you have Problems For any increased pain, shortness of breath, bleeding, nausea or vomiting, chest pain, or any unexpected problems, contact your Primary Care Provider. Call [facility] ([phone]) or report to the closest Emergency Room. Call 911 if necessary. 06/29/181932 <Electronically signed by Gurpreet Patel MD> Date Gurpreet Patel MD Cosigner Signature (If Indicated): Date CC: Terrie Lopez MD BEDSIDE GLUCOSE Collected: 06/29/2018 Status: F Source: [place] 4:26 PM [facility] REPOSITORY TYPE CODE TESTS RESULT OUT OF REFERENCE UNITS RANGE LAB L501.080 70-110 mg/dL High BEDSIDE GLU 178 Result Comment: MANAGEMENT OF PATIENT CARE PER NURSING PROTOCOL Performed By: #### L501.080 #### [facility] Point of Care [address] [place] [address] CBC W/DIFF, AUTOMATED Collected: 06/29/2018 Status: F Source: [place] 4:20 PM [facility] CENTER REPOSITORY TYPE CODE TESTS RESULT OUT OF RANGE REFERENCE UNITS LAB L100.1000 4.4-11.0 K/mm3 Normal WBC 7.1 LAB L100.1200 4.2-5.4 M/mm3 Normal RBC 4.43 LAB L100.1300 12.0-15.0 g/dl Low HGB 11.8 LAB L100.1400 37-47 % Normal HCT 37.6 LAB L100.1500 81-99 fL Normal MCV 84.9 LAB L100.1600 27.0-32.0 pg Low MCH 26.6 LAB L100.1700 32-36 g/gl Low MCHC 31.4 LAB L100.1810 11.6-14.6 % High RDW CV 15.6 LAB L100.1820 35.1-43.9 fl High RDW SD 48.2 LAB L100.1900 150-450 K/mm3 Normal PLT 156 LAB L100.2000 6.2-12.0 fl Normal MPV 9.4 LAB L100.2100 47-70 % High NEUT% 71.3 LAB L100.2200 19-41 % Normal LY% 20.6 LAB L100.2300 0-10 % Normal MONO% 7.9 LAB L100.2400 0-5 % Normal EO% 0.0 LAB L100.2500 0-1 % Normal BASO% 0.1 LAB L100.2550 0.0-0.9 % Normal IM GRAN % 0.100 Result Comment: IG% - Immature Granulocytes (promyelocytes, myelocytes and metamyelocytes) > 1% indicates that a LEFT SHIFT is Present. LAB L100.2620 2.0-7.7 X10 3/uL Normal Absolute Neut 5.1 LAB L100.2720 0.83-4.51 X10 3/ul Normal Absolute Lymph 1.47 Performed By: #### L100.0100 #### [facility] [address] [place], [address] BASIC METABOLIC Collected: 06/29/2018 Status: F Source: [place] PROFILE ([facility]) 4:20 PM [facility] REPOSITORY TYPE CODE TESTS RESULT OUT OF RANGE REFERENCE UNITS LAB L501.0100 74-106 mg/dL High GLU 189 Result Comment: Fasting Glucose result greater than or equal to 126 mg/dL suggests DIABETES MELLITUS per A.D.A. criteria. Please note revised GLUCOSE reference range effective 2017. LAB L501.1000 7-18 mg/dL High BUN 21 LAB L501.1100 0.55-1.02 mg/dL Normal CREAT,SERUM 0.81 Result Comment: The validity of the calculated GFR AND GFRAA in patients over 70 years has not been determined. Clinical correlation is essential. LAB L501.1110 >60 mL/min Normal EST GFR 78 Result Comment: Non- GFR Calc LAB L501.1115 >60 mL/min Normal EST GFR - AA 94 Result Comment: GFR Calc LAB L501.1255 ml/min Normal Estimated CRCL 71.45 LAB L501.1300 10-20 RATIO High BUN/CRE 25.9 LAB L501.2200 8.5-10 mg/dL Normal .1 CA 8.8 LAB L501.5300 136-14 mmol/L Normal 5 NA 139 LAB L501.5600 3.5-5. mmol/L Normal 1 K 4.0 LAB L501.5900 98-107 mmol/L Normal CL 105 LAB L501.6100 21.0-3 mmol/L Normal 2.0 CO2 25.0 LAB L501.6200 5-15 Normal GAP 9 Performed By: #### L500.2500, L501.4010 #### [facility] [address] [place], [address] TROPONIN-I Collected: 06/29/2018 Status: F Source: [place] 4:20 PM [facility] REPOSITORY TYPE CODE TESTS RESULT OUT OF RANGE REFERENCE UNITS LAB L501.4010 <0.045 ng/mL Normal < 0.015 TROPONIN-I Result Comment: TROPONIN-I EXPECTED VALUES <0.045 Negative 0.045 - 0.590 Consistent with Cardiac Damage > OR = 0.600 Critical Value Not every elevated troponin is indicative of CT. These values should be used with clinical judgement in examining the patient's clinical picture for diagnosis. To establish a diagnosis of CT versus myocardial injury, there must be a demonstrated rise and/or fall in the troponin values, in addition to ischemic symptoms, EKG changes, new regional wall motion abnormality, and/or angiographical evidence. PLEASE NOTE: REFERENCE RANGES EDITED 18 Performed By: #### L500.2500, L501.4010 #### [facility] [address] [place], [place], [address] URINALYSIS, COMPLETE Collected: 06/29/2018 Status: F Source: [place] 4:20 PM [facility] REPOSITORY Order Comment: Order Date: 06/29/18 How was Urine Obtained? CLEAN CATCH TYPE CODE TESTS RESULT OUT OF RANGE REFERENCE UNITS LAB L400.3000 Yellow COLOR Normal Yellow LAB L400.3050 Clear Normal CLARITY Clear LAB L400.3200 Normal mg/dl Normal GLUCOSE, UR Normal LAB L400.3300 Negative mg/dL Normal BILIRUBIN URINE Negative LAB L400.3400 Negative mg/dl High 5 KETONE UR LAB L400.3465 1.002-1.030 Normal SP.GR. DIPSTX 1.020 LAB L400.3550 5.0 - 8.0 pH UR Normal 6.0 LAB L400.3600 Negative mg/dl High PROT 15 DIPSTX LAB L400.3700 Normal mg/dl Normal UROBILI Normal LAB L400.3750 Negative Normal NITRITE UR Negative LAB L400.3780 Negative /ul High 25 OCCULT BLOOD-UR LAB L400.3800 Negative /ul High LEUK 25 ESTERASE LAB L400.4050 0-5 /hpf WBC Normal 0-5 SEEN LAB L400.4100 0-5 /hpf Normal RBC-UA 0-5 SEEN LAB L400.4150 5-10 /hpf SQUAM 0 Normal EPI SEEN LAB L400.4300 None Seen /hpf 0 Normal BACTERIA SEEN LAB L400.4350 <or=2+ /hpf 0 Normal MUCUS, URINE SEEN Performed By: #### L400.0001 #### [facility] [address] [place], [place], [address] CHEST 1 VIEW Observed: 06/29/2018 Status: F Source: [place] (PORTABLE) 3:12 PM [facility] HOSPITAL REPOSITORY [facility] Imaging Services [address] [place] [address] Chest 1 View (Portable) MR#: [id number] Acct: [id number] Name: EDEL LANG Rep #: [id number] : 1965 F 52 From: Chace Queen MD PCP: Terrie Lopez MD Status: REG ER Study: Chest 1 View (Portable) Date of Exam: 06/29/18 Exam# [id number] Ordering Dr: Gurpreet Patel MD STUDY: X-RAY CHEST REASON FOR EXAM: Female, 52 years old. Chest pain TECHNIQUE: Frontal view of the chest COMPARISON: 06/27/2018. FINDINGS: There is stable elevation of the right hemidiaphragm with overlying atelectasis. The lungs are otherwise clear. There are no pleural effusions. There is no pneumothorax. The heart is normal in size. The visualized osseous structures are within normal limits. RAD/Chest 1 View (Portable) IMPRESSION: Elevated stable elevation of the right hemidiaphragm with overlying atelectasis. Otherwise, clear lungs. Electronically Signed: Chace Queen, at 16:52 EDT Tel , Service support , CC: GURPREET PATEL MD; Terrie Lopez MD [employer] Operator: Signed BRAIN/HEAD WITHOUT Observed: 06/29/2018 Status: F Source: [place] CONTRAST 3:12 PM [facility] HOSPITAL REPOSITORY [facility] Imaging Services [address] [place] [address] Brain/Head without Contrast MR#: [id number] Acct: [id number] Name: EDEL LANG Rep #: [id number] : 1965 F 52 From: Chace Queen MD PCP: Terrie Lopez MD Status: REG ER Study: Brain/Head without Contrast Date of Exam: 06/29/18 Exam# [id number] Ordering Dr: Gurpreet Patel MD STUDY: CT BRAIN WITHOUT CONTRAST REASON FOR EXAM: Female, 52 years old. Headache RADIATION DOSAGE (If Supplied By Facility): CTDIvol = ( 44.99 ) mGy, DLP = ( 812.98 ) mGycm TECHNIQUE: Transaxial CT imaging of the brain was performed without administration of intravenous contrast material. Individualized dose optimization techniques were used for this CT. COMPARISON: 04/17/2018 FINDINGS: There is no acute bleed or infarct. There are normal white matter tracts. The ventricles are normal in configuration. There is no hydrocephalus. The visualized paranasal sinuses are clear. The mastoid air cells are well aerated. There is no skull fracture. CT/Brain/Head without Contrast IMPRESSION: No acute intracranial abnormality. Electronically Signed: Chace Queen, at 17:11 EDT Tel , Service support , CC: GURPREET PATEL MD; Terrie Lopez MD [employer] Sequest[employer] Operator: Signed EMERGENCY DEPARTMENT Observed: 06/27/2018 Status: F Source: [place] SUMMARY 6:13 PM [facility] REPOSITORY [facility] Medical Records Department [address] [place] [id number] Emergency Department Summary 06/27/18 1812 MR#: [id number] Acct: [id number] Name: EDEL LANG Rep #: [id number] : 1965 52 From: Bronson King MD PCP: Terrie Lopez MD Status: REG ER - ER Visit Summary Date of Service: 06/27/18 Chief Complaint: [] History of Present Illness: The patient is a 52 F [] Physical Examination: [] Test Results: [] Emergency Department Course and Treatment: [] Treatment Plan: [] Disposition: [] Impression: [] This note was generated with [employer]So[employer] software. It may contain incorrect words, spelling, and punctuation that were not noted in review of the chart prior to signing ED Disposition - Plan for ED Patient: Chief Complaint: Shortness of Breath Diagnosis: COPD Instructions: ED COPD Flare Prescriptions: Prednisone [Deltasone] 40 mg PO DAILY #10 tablet Doxycycline Monohydrate 100 mg PO BID #20 capsule Referrals: Terrie Lopez MD [Primary Care Provider] - 1 Day What to do if you have Problems For any increased pain, shortness of breath, bleeding, nausea or vomiting, chest pain, or any unexpected problems, contact your Primary Care Provider. Call [facility] ([phone]) or report to the closest Emergency Room. Call 911 if necessary. 06/27/18 181 <Electronically signed by Bronson King MD> Date Bronson King MD Cosigner Signature (If Indicated): Date CC: Terrie Lopez MD EMERGENCY DEPARTMENT Observed: 06/27/2018 Status: F Source: [place] SUMMARY 6:11 PM [facility] REPOSITORY [facility] Medical Records Department [address] [place] [address] Emergency Department Summary 06/27/18 1807 MR#: [id number] Acct: [id number] Name: EDEL LANG Rep #: [id number] : 1965 52 From: Bronson King MD PCP: Terrie Lopez MD Status: REG ER - ER Visit Summary Date of Service: 06/27/18 Chief Complaint: COPD exacerbation History of Present Illness: The patient is a 52 F with a history of COPD, on 2 L of oxygen at nighttime presents with 3 days of cough productive of yellow sputum and increased wheezing. She denies chest pain or lower extremity swelling/pain. Denies recent travel or immobilization. She believes that this flareup is triggered by a respiratory infection. She states that she feels fine when she is at rest but she has increased wheezing with exertion. No diaphoresis or other atypical cardiac type symptoms. Current severity is minimal because she is at rest Physical Examination: Vitals are essentially within normal limits except for slight hypertension. Pulse oximetry is 97% on room air. She is not tachycardic. She does have wheezing in all lung hester but is not in significant respiratory distress. Abdomen is soft and nontender. No tenderness along the lower extremity venous system, swelling, or palpable cords. Test Results: Chest x-ray is negative for infiltrate. Labs are essentially within normal limits. She is slightly hypertensive but her other vital signs are within normal limits. She has no headache or chest pain related to this and her creatinine is normal. No evidence of endorgan damage. Neurologic exam is normal. Emergency Department Course and Treatment: He was given IV Solu-Medrol and breathing treatments. On reexamination she feels at baseline. She is not symptomatic with exertion. She feels well enough to go home. She will be placed on doxycycline because she has had a change in her sputum production pattern as well as prednisone and follow-up closely with her doctor. I also asked her to keep a diary of her blood pressures at home and address this with her doctor. She will return if she has any worse. Treatment Plan: Oral antibiotics and steroids Disposition: Home stable condition Impression: Initial encounter COPD exacerbation secondary to lower respiratory tract infection This note was generated with [employer] dictation software. It may contain incorrect words, spelling, and punctuation that were not noted in review of the chart prior to signing ED Disposition - Plan for ED Patient: Chief Complaint: Shortness of Breath Diagnosis: COPD Instructions: ED COPD Flare Prescriptions: Prednisone [Deltasone] 40 mg PO DAILY #10 tablet Doxycycline Monohydrate 100 mg PO BID #20 capsule Referrals: Terrie Lopez MD [Primary Care Provider] - 1 Day What to do if you have Problems For any increased pain, shortness of breath, bleeding, nausea or vomiting, chest pain, or any unexpected problems, contact your Primary Care Provider. Call [facility] ([phone]) or report to the closest Emergency Room. Call 911 if necessary. 06/27/18 1811 <Electronically signed by Bronson King MD> Date Bronson King MD Cosigner Signature (If Indicated): Date CC: Terrie Lopez MD CBC W/DIFF, AUTOMATED Collected: 06/27/2018 Status: F Source: [place] 5:25 PM [facility] REPOSITORY TYPE CODE TESTS RESULT OUT OF RANGE REFERENCE UNITS LAB L100.1000 4.4-11.0 K/mm3 Normal WBC 5.3 LAB L100.1200 4.2-5.4 M/mm3 Normal RBC 4.50 LAB L100.1300 12.0-15.0 g/dl Normal HGB 12.2 LAB L100.1400 37-47 % Normal HCT 38.1 LAB L100.1500 81-99 fL Normal MCV 84.7 LAB L100.1600 27.0-32.0 pg Normal MCH 27.1 LAB L100.1700 32-36 g/gl Normal MCHC 32.0 LAB L100.1810 11.6-14.6 % High RDW CV 15.4 LAB L100.1820 35.1-43.9 fl High RDW SD 47.3 LAB L100.1900 150-450 K/mm3 Low PLT 129 LAB L100.2000 6.2-12.0 fl Normal MPV 9.3 LAB L100.2100 47-70 % High NEUT% 71.6 LAB L100.2200 19-41 % Low LY% 18.9 LAB L100.2300 0-10 % Normal MONO% 9.5 LAB L100.2400 0-5 % Normal EO% 0.0 LAB L100.2500 0-1 % Normal BASO% 0.0 LAB L100.2550 0.0-0.9 % Normal IM GRAN % 0.000 Result Comment: IG% - Immature Granulocytes (promyelocytes, myelocytes and metamyelocytes) > 1% indicates that a LEFT SHIFT is Present. LAB L100.2620 2.0-7.7 X10 3/uL Normal Absolute Neut 3.8 LAB L100.2720 0.83-4.51 X10 3/ul Normal Absolute Lymph 0.99 Performed By: #### L100.0100 #### [facility] [address] [place], [address] BASIC METABOLIC Collected: 06/27/2018 Status: F Source: [place] PROFILE (BMP) 5:25 PM [facility] REPOSITORY TYPE CODE TESTS RESULT OUT OF RANGE REFERENCE UNITS LAB L501.0100 74-106 mg/dL High GLU 221 Result Comment: Glucose result greater than or equal to 200 mg/dL suggests DIABETES MELLITUS per A.D.A. criteria. Please note revised GLUCOSE reference range effective 2017. LAB L501.1000 7-18 mg/dL Normal BUN 13 LAB L501.1100 0.55-1.02 mg/dL Normal CREAT,SERUM 0.83 Result Comment: The validity of the calculated GFR AND GFRAA in patients over 70 years has not been determined. Clinical correlation is essential. LAB L501.1110 >60 mL/min Normal EST GFR 76 Result Comment: Non- GFR Calc LAB L501.1115 >60 mL/min Normal EST GFR - AA 91 Result Comment: GFR Calc LAB L501.1255 ml/min Normal Estimated CRCL 69.72 LAB L501.1300 10-20 RATIO Normal BUN/CRE 15.6 LAB L501.2200 8.5-10 mg/dL Normal .1 CA 8.7 LAB L501.5300 136-14 mmol/L Normal 5 NA 142 LAB L501.5600 3.5-5. mmol/L Normal 1 K 4.1 LAB L501.5900 98-107 mmol/L Normal CL 104 LAB L501.6100 21.0-3 mmol/L Normal 2.0 CO2 29.0 LAB L501.6200 5-15 Normal GAP 9 Performed By: #### L500.2500 #### [facility] [address] [place], [place], [address] CHEST PA AND LATERAL Observed: 06/27/2018 Status: F Source: [place] 4:43 PM [facility] REPOSITORY [facility] Imaging Services [address] [place] [address] Chest PA and Lateral MR#: [id number] Acct: [id number] Name: EDEL LANG Rep #: [id number] : 1965 F 52 From: Duane Riggs DO PCP: Terrie Lopez MD Status: PRE ER Study: Chest PA and Lateral Date of Exam: 06/27/18 Exam# [id number] Ordering Dr: Bronson King MD STUDY: X-RAY CHEST REASON FOR EXAM: Female, 52 years old. History of COPD. Shortness of breath with exertion. TECHNIQUE: PA and lateral views of the chest. COMPARISON: May 29, 2018. FINDINGS: There is persistent elevation of the right hemidiaphragm. Minimal atelectatic changes at both lung bases. There is no new mass or infiltrate. There is no demonstrated pleural abnormality. Normal size heart. Normal mediastinum and keli. Normal visualized pulmonary arteries. There is minimal atherosclerotic calcification of the aortic arch with tortuosity. There are diffuse degenerative changes of the visualized thoracic spine. There is degenerative osteoarthritis of the bilateral shoulders. There is no demonstrated abnormality of the visualized soft tissue structures of the upper abdomen. RAD/Chest PA and Lateral IMPRESSION: Elevated right hemidiaphragm with bibasilar atelectasis. There is no major interval change. Electronically Signed: Duane Riggs DO at 17:12 EDT Tel [phone], Service support , CC: Jama King MD; Terrie Lopez MD [employer] Operator: Signed PROGRESS Observed: 06/18/2018 Status: COMPLETED Source: [place] 8:58 AM [facility] [place] REPOSITORY HNO ID: [id number] Author: Krystal Jessee Malin Service: (none) Author Type: (none) Type: Progress Notes Filed: 06/18/2018 8:59 AM Note Text: Letters mailed to patient. PROGRESS Observed: 06/18/2018 Status: COMPLETED Source: [place] 8:56 AM [facility] REPOSITORY HNO ID: [id number] Author: Krystal Mensah [facility] Service: (none) Author Type: (none) Type: Progress Notes Filed: 06/18/2018 8:59 AM Note Text: Upcoming appointment 07/03 (not due for labs yet). Due for DM retinal exam and other HM procedures. I will send DM retinal reminder letter and release form. CNPTOUTREACH Observed: 06/18/2018 Status: COMPLETED Source: [place] 12:00 AM [facility] REPOSITORY Patient Outreach (INTMWS) EDEL LANG ([id number]) 1965 F Date Time Provider Department 06/18/18 KRYSTAL MENSAH ([facility]) INTMWS During your visit today, we recorded the following information about you: Krystal Mensah [facility] 06/18/2018 8:59 AM Signed Upcoming appointment 07/03 (not due for labs yet). Due for DM retinal exam and other HM procedures. I will send DM retinal reminder letter and release form. Krystal Mensah [facility] 06/18/2018 8:59 AM Signed Letters mailed to patient. Allergies As of Date: 06/18/2018 Noted Allergy Reaction NIA (FEXOFENADINE HCL) 01/25/2006 12 - Shortness of Breath ANCEF (CEFAZOLIN SODIUM) 01/25/2006 4 - Hives CLINDAMYCIN 01/05/2007 6 - Diarrhea duoderm [Other] 05/21/2007 Comments: severe burning pain at point of contact. No redness. ELAVIL (AMITRIPTYLINE) 04/27/2007 Comments: hallucinations MACROBID (NITROFURANTOIN MONOHYD/*05/15/2007 4 - Hives NORVASC (AMLODIPINE) 12/11/2008 7 - Swelling Date Reviewed: 06/07/2018 Reviewed by: Edel Montejo LPN - Fully Assessed Reason for Visit: PHMA/[facility] Outreach [[id number]] Prescriptions as of 06/18/2018 Sig: FLUTICASONE 50 MCG/ACTUATION * Use 2 Sprays in each nostril * MUPIROCIN 2 % TOPICAL OINTMENT APPLY TO AFFECTED AREA ONCE D* NADOLOL 80 MG TABLET Take 2 tablets by mouth once * LIDOCAINE 4 % TOPICAL CREAM Apply thin layer to affected * TRAMADOL 50 MG TABLET Take 1-2 tablets by mouth nathalie* ONDANSETRON 4 MG DISINTEGRATI* Take 1 tablet by mouth every * OMEPRAZOLE 20 MG CAPSULE,MELINDA* TAKE 1 CAPSULE BY MOUTH DAILY PROMETHAZINE 25 MG TABLET Take 1 tablet by mouth every * BUSPIRONE 5 MG TABLET Take 15 mg by mouth twice josé* FLUCONAZOLE 150 MG TABLET 1 tablet today and repeat in * OXYBUTYNIN CHLORIDE ER 15 MG * TAKE 1 TABLET BY MOUTH ONCE D* LISINOPRIL 5 MG TABLET Take 1 tablet by mouth once d* ORPHENADRINE CITRATE ER 100 M* Take 1 tablet by mouth twice * DICYCLOMINE 20 MG TABLET Take 1 tablet by mouth three * VALACYCLOVIR 500 MG TABLET Take 1 tablet by mouth once d* DIVALPROEX ER 500 MG TABLET,E* take 1 tablet by mouth daily GUAIFENESIN ER 600 MG TABLET,* Take 2 tablets by mouth twice* BENZONATATE 200 MG CAPSULE Take 1 capsule by mouth three* Patient not taking: Reported on 06/07/2018 OMEPRAZOLE MAGNESIUM 20 MG TA* Take 1 tablet by mouth daily * GABAPENTIN 600 MG TABLET TAKE 2 TABLETS THREE TIMES A * HYDROCORTISONE 2.5 % TOPICAL * 1 application by RECTAL route* BLOOD SUGAR DIAGNOSTIC STRIPS Test blood sugar(s) 3 times d* GLIMEPIRIDE 2 MG TABLET Take 2 tablets by mouth twice* LANCETS Test blood sugar(s) 3 times d* BENZOCAINE-MENTHOL 15 MG-2.6 * Take 1 Lozenge by mouth every* Patient not taking: Reported on 06/07/2018 DIAZEPAM 5 MG TABLET Take 10 mg by mouth once kala* TRIAMCINOLONE ACETONIDE 0.1 %* Apply 1 application to affect* MOMETASONE-FORMOTEROL HFA 100* Inhale 2 Puffs as instructed * ALBUTEROL SULFATE HFA 90 MCG/* Inhale 2 Puffs as instructed * BLOOD SUGAR DIAGNOSTIC STRIPS Test blood sugar(s) 3 times d* CPAP Initiate CPAP @ 14 cm of wate* COMPOUNDED PRESCRIPTION Nebulizer for home use. Diagn* QUETIAPINE 300 MG TABLET Take 1 tablet by mouth daily * Patient taking differently: Take 300 mg by mouth daily at* Problem List As Of Date 06/18/2018 Noted Resolved ESOPHAGEAL REFLUX [K21.9] More... Unspecified asthma(493.90) [J45.909] 06/02/2017 More... 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 Unspecified vitamin D deficiency [E55.9] INVALID FOR*02/27/2013 GENITAL HERPES NEC [A60.00] INVALID FOR* URGE AND STRESS MIXED INCONTINENCE [N39.46] INVALID FOR* LACERATION -NOT COMPLICATED BREAST [S21.009A] INVALID FOR*02/27/2013 Diabetes (HCC) [E11.9] INVALID FOR* Enthesopathy of unspecified site [M77.9] INVALID FOR*02/27/2013 Adenopathy, Hilar [R59.0] INVALID FOR* Major depressive disorder, recurrent episode (H*INVALID FOR* Abnormal mammogram, unspecified [R92.8] INVALID FOR*06/02/2017 Wound, open, breast [S21.009A] INVALID FOR*02/27/2013 Benign neoplasm of skin of lower limb, includin*INVALID FOR*02/27/2013 Umbilical hernia without mention of obstruction*INVALID FOR*06/02/2017 Ventral hernia, unspecified, without mention of*INVALID FOR*06/02/2017 Anxiety [F41.9] INVALID FOR* Vitamin d deficiency [E55.9] INVALID FOR* Urge incontinence of urine [N39.41] INVALID FOR*06/02/2017 Pain of left lower leg [M79.662] INVALID FOR* Carpal tunnel syndrome of right wrist [G56.01] INVALID FOR*06/02/2017 Morbid obesity with BMI of 45.0-49.9, adult (HC* ABRAM (obstructive sleep apnea) [G47.33] INVALID FOR* More... Left carpal tunnel syndrome [G56.02] INVALID FOR*06/02/2017 Asthma with COPD with exacerbation (HCC) [J44.1*INVALID FOR* HTN (hypertension) [I10] INVALID FOR* Ganglion cyst of finger of right hand [M67.441] INVALID FOR* More... Letter Text [place] [facility] [place] [address] [place], [place] [id number] Dear Edel Lang Your health care is very important to us. Our records indicate that you may be due for a diabetic eye exam. If you have had a diabetic eye exam within the last year, please have your records sent to us so that we may update your medical records. There is a medical records of release of information included in this letter. Please take the release to your eye doctor for future appointments to have your records forwarded to us. Important facts about diabetic eye exams Diabetic retinal exams should be done yearly for all patients with a diagnosis of diabetes. Risks such as diabetic retinopathy can be reduced with blood glucose control and early detection of potential problems. Diabetic retinopathy is damage to the small blood vessels in the retina that can lead to blindness Thank you, Terrie Molina MD Letter Text Medicine [place] [phone] Office: [phone] Terrie Molina MD REQUEST FOR EYE EXAM FINDINGS December 09, 2016 Dear eye resident care coordinator, Thank you for coordinating eye care for our mutual patient, Edel Lang (1965). Please fax this letter back to me with the most appropriate response selected below. Please allow the patient's signature to serve as permission to share your findings. Sincerely, Terrie Molina MD Patient Signature Date Date of eye exam: Findings Both Eyes Right Left No Retinopathy Detected Non Proliferative Retinopathy Mild Moderate Severe Proliferative Retinopathy Macular Edema Further testing and/or treatment indicated Comments: Patient is to return: Encounter Status:Closed by KRYSTAL MENSAH CMA on 06/18/18 PROGRESS Observed: 06/07/2018 Status: COMPLETED Source: [place] 12:06 PM [facility] [place] REPOSITORY HNO ID: [id number] Author: Emile (Carlos) Karson Service: (none) Author Type: Nurse Specialist Type: Progress Notes Filed: 06/07/2018 12:13 PM Note Text: OUTPATIENT VISIT DATE June 07, 2018 OUTPATIENT VISIT TYPE ESTABLISHED PRIMARY CARE PHYSICIAN: Terrie Lopez MD CHIEF COMPLAINT: Patient presents with: Hospital F/U History of Present Illness: Edel Lang is a 52 year old female who was last seen 04/2018 by Terrie Lopez MD. She has been seen in the past for ACTIVE PROBLEM LIST Esophageal Reflux Fibromyalgia Generalized Osteoarthritis Sprain of Lumbosacral (Joint) (Ligament) Hereditary and Idiopathic Peripheral Neuropathy Other Genital Herpes Mixed Incontinence Urge and Stress (Male)(female) Diabetes (Hcc) Adenopathy, Hilar Major depressive disorder, recurrent episode (HCC) Anxiety Vitamin D Deficiency Pain of Left Lower Leg Morbid Obesity With Bmi of 45.0-49.9, Adult (Hcc) Abram (Obstructive Sleep Apnea) Asthma With Copd With Exacerbation (Hcc) Htn (Hypertension) Ganglion Cyst of Finger of Right Hand Presents today for ER follow up of cellulitis left lower extremity. Was seen in prior May 27, 2018, treated with doxycycline. Presented to [facility] May 29, 2018 with fever increase in swelling in the leg. Doxycycline was discontinued. She was begun on Bactrim for better MRSA coverage which she has had on previous. Impression was left leg cellulitis. She presents today for follow-up visit. She continues on Bactrim. She has antibiotics 3 to June 09, 2018. She has noted some diarrhea with the antibiotics. Redness swelling and pain is decreased in her leg. She has noted decreased drainage from above prior skin graft on her left lower leg. She's been applying bacitracin ointment twice daily and covering with gauze or Band-Aid. No recent hospital or ED visits. No new medical problems or medications. Able to obtain medications. No problems with taking medications or note side effects. PAST MEDICAL HISTORY Diagnosis Date - FIBROMYALGIA - Cellulitis and abscess of unspecified site 11/26 right leg - Depressive disorder, not elsewhere classified - Dysmetabolic syndrome X 08/09/2006 - Esophageal reflux Gastroesophageal reflux - Generalized anxiety disorder - Hx of cystoscopy 09/11/2017 - Localized osteoarthrosis not specified whether primary or secondary, other specified sites bilateral knees - Morbid obesity with BMI of 50.0-59.9, adult (HCC) - Other genital herpes 08/09/2006 - Type II or unspecified type diabetes mellitus without mention of complication, not stated as uncontrolled - Unspecified asthma(493.90) - Unspecified essential hypertension Essential hypertension - Whooping cough, unspecified organism 11/26 PAST SURGICAL HISTORY Procedure Laterality Date - DELIVERY ONLY 1993 , low cervical - COLONOSCOP W/ OR W/O [facility] SPEC 03/24/2005 Colonoscopy - KNEE SCOPE,DIAGNOSTIC 2002 Arthroscopy, knee-right - KNEE SCOPE,DIAGNOSTIC 2003 Arthroscopy, knee-left - PAST SURGICAL HISTORY OF 1997 uterus out as well as cervix - PAST SURGICAL HISTORY OF 03/29/11 Excision of Rt lower leg lesion - PAST SURGICAL HISTORY OF 07/2014 cardiac cath - REMOVAL OF OVARY(S) 1999 Oophorectom bilateral - REMOVAL OF TONSILS,<10 Y/O 1967 Tonsillectomy - REPAIR INCISIONAL HERNIA,JUANA 05/11/11 with large ventralex mesh - REVISE MEDIAN N/CARPAL TUNNEL SURG 05-16- Carpal tunnel decomp right and excision ganglion righ thumb - REVISE MEDIAN N/CARPAL TUNNEL SURG Left 09/09/2015 Carpal tunnel decomp left - SKIN SUB GRAFT LEG 2011 left LE FAMILY HISTORY Problem Relation Age of Onset - Diabetes Mother - Hypertension Mother - Psychiatry Mother severe depression, bipolar - Asthma Mother - Arthritis Mother rheumatoid arthritis - fibromyalgia [OTHER] Mother - Hypertension Father - Stroke Father - traumatic brain injury [OTHER] Father - Alzheimer's Disease Maternal Grandmother - Hypertension Maternal Grandfather - Stroke Maternal Grandfather - parkinsons [OTHER] Maternal Grandfather - Stroke Paternal Grandmother 8 - Hypertension Paternal Grandmother - Seizures Son - schizo - affective [OTHER] Son - autism [OTHER] Son - partial agenesis of corpus collosm [OTHER] Son - depression [OTHER] Son Social History Substance Use Topics - Smoking status: Never Smoker - Smokeless tobacco: Never Used - Alcohol use No Comment: recovering alcoholic-quit 1985 ALLERGIES: ALLERGIES Allergen Reactions - Nia [Fexofenadi* Shortness of Breath - Ancef [Cefazolin So* Hives - Clindamycin Diarrhea - Duoderm [Other] severe burning pain at point of contact. No redness. - Elavil [Amitriptyli* hallucinations - Macrobid [Nitrofura* Hives - Norvasc [Amlodipine] Swelling MEDICATIONS mupirocin (BACTROBAN) 2 % ointment APPLY TO AFFECTED AREA ONCE DAILY nadolol (CORGARD) 80 mg tablet Take 2 tablets by mouth once daily. lidocaine (LMX) 4 % cream Apply thin layer to affected area three times a day as needed for pain traMADol (ULTRAM) 50 mg tablet Take 1-2 tablets by mouth every 6 hours as needed for up to 90 days. ondansetron orally disintegrating (ZOFRAN ODT) 4 mg disintegrating tablet Take 1 tablet by mouth every 8 hours as needed for Nausea/Vomiting. omeprazole (PRILOSEC) 20 mg capsule TAKE 1 CAPSULE BY MOUTH DAILY promethazine (PHENERGAN) 25 mg tablet Take 1 tablet by mouth every 6 hours as needed. busPIRone (BUSPAR) 5 mg tablet Take 15 mg by mouth twice daily. Dose needs clarified with patients pharmacy. fluconazole (DIFLUCAN) 150 mg tablet 1 tablet today and repeat in 72 hours oxybutynin ER (DITROPAN XL) 15 mg 24 hr Extended Rel Tab TAKE 1 TABLET BY MOUTH ONCE DAILY. lisinopril (ZESTRIL, PRINIVIL) 5 mg tablet Take 1 tablet by mouth once daily. orphenadrine ER (NORFLEX) 100 mg tablet Take 1 tablet by mouth twice daily as needed for Muscle Spasm. dicyclomine (BENTYL) 20 mg tablet Take 1 tablet by mouth three times daily. valACYclovir (VALTREX) 500 mg tablet Take 1 tablet by mouth once daily. divalproex ER (DEPAKOTE ER) 500 mg 24 hr tablet take 1 tablet by mouth daily guaiFENesin (MUCINEX) 600 mg 12 hr tablet Take 2 tablets by mouth twice daily as needed. Omeprazole Magnesium (PRILOSEC OTC) 20 mg tablet Take 1 tablet by mouth daily before breakfast. 1/2 hr before meal. gabapentin (NEURONTIN) 600 mg tablet TAKE 2 TABLETS THREE TIMES A DAY hydrocortisone (ANUSOL-HC) 2.5 % rectal cream 1 application by RECTAL route twice daily. As directed blood sugar diagnostic (BLOOD GLUCOSE TEST) test strip Test blood sugar(s) 3 times daily. Dx: Type 2 DM - Uncontrolled E11.65 Insulin: No glimepiride (AMARYL) 2 mg tablet Take 2 tablets by mouth twice daily with meals. As directed Lancets lancets Test blood sugar(s) 3 times daily. Dx: Type 2 DM - Uncontrolled E11.65 Insulin: No diazePAM (VALIUM) 5 mg tablet Take 10 mg by mouth once daily as needed for Anxiety. triamcinolone acetonide (KENALOG) 0.1 % cream Apply 1 application to affected area twice daily. For itchy lesions for 2 weeks (torso or extremities) as directed mometasone-formoterol (DULERA) 100-5 mcg/actuation inhaler Inhale 2 Puffs as instructed twice daily. albuterol HFA (VENTOLIN HFA) 90 mcg/actuation inhaler Inhale 2 Puffs as instructed every 4 hours as needed for Wheezing/Shortness of Breath. fluticasone (FLONASE) 50 mcg/actuation nasal spray Use 2 Sprays in each nostril once daily. blood sugar diagnostic (FREESTYLE LITE STRIPS) test strip Test blood sugar(s) 3 times daily. Dx: Type 2 DM - Controlled E11.9 Insulin: Yes CPAP Initiate CPAP @ 14 cm of water with humidification. EPR setting of 3. Mask (per patient preference) optional chin strap (if indicated) , filters, tubing, humidifier and lifetime supplies. QUEtiapine (SEROQUEL) 300 mg tablet Take 1 tablet by mouth daily at bedtime. Also takes [address] Patterson. fluconazole (DIFLUCAN) 150 mg tablet Take 1 tablet by mouth once daily for 1 day. sulfamethoxazole-trimethoprim (BACTRIM DS) 800-160 mg per tablet Take 1 tablet by mouth twice daily for 3 days. Continue for three additional days. Take with food Benzonatate 200 mg capsule Take 1 capsule by mouth three times daily as needed. benzocaine-menthol (CEPACOL) 15-2.6 mg lozg lozenge Take 1 Lozenge by mouth every 3 hours as needed. COMPOUNDED PRESCRIPTION Nebulizer for home use. Diagnosis: Asthma exacerbation REVIEW OF SYSTEMS: GENERAL: Negative for: Weight loss or gain, Fever or Chills, Weakness and Sleep difficulties. Physical Examination: BP 124/82 Pulse 68 Resp 16 Wt 328 lb (148.8kg) BP w/Orthostatic Vitals Date and Time Orthostatic BP Orthostatic Pulse BP Pulse BP Position BP Site BP Cuff Size 06/07/18 1126 -- -- 124/82 68 Sitting Right Arm Regular Adult Peak Flow Date and Time PF Resp 06/07/18 1126 -- 16 General appearance: Well appearing, alert, in no acute distress, well-hydrated, well nourished. Skin: Skin color, texture, turgor normal, + erythema, swelling, redness left lower extremity ankle to mid calf, lateral and anterior surfaces, open would with red wound base, serous drainage,Proximal and lateral to the prior skin graft approximately 0.25 x 1 Extremities: 1+ lower extremity edema, no clubbing or cyanosis. Good capillary refill. Peripheral pulses: Normal Neuro: Gait normal. Sensation grossly intact. Reviewed chart, outside records, tests I personally interviewed, confirmed and edited the above information if obtained by others. TESTING: Glucose (mg/dL) Date Value 03/01/2018 179 Potassium (mmol/L) Date Value 03/01/2018 4.1 Sodium (mmol/L) Date Value 03/01/2018 138 Chloride (mmol/L) Date Value 03/01/2018 100 CO2 (mmol/L) Date Value 03/01/2018 23 Creatinine (mg/dL) Date Value 03/01/2018 0.84 BUN (mg/dL) Date Value 03/01/2018 14 Anion Gap (mmol/L) Date Value 03/01/2018 15 Calcium (mg/dL) Date Value 03/01/2018 8.7 Glucose (mg/dL) Date Value 03/01/2018 179 Potassium (mmol/L) Date Value 03/01/2018 4.1 Sodium (mmol/L) Date Value 03/01/2018 138 Chloride (mmol/L) Date Value 03/01/2018 100 CO2 (mmol/L) Date Value 03/01/2018 23 Creatinine (mg/dL) Date Value 03/01/2018 0.84 BUN (mg/dL) Date Value 03/01/2018 14 Anion Gap (mmol/L) Date Value 03/01/2018 15 Calcium (mg/dL) Date Value 03/01/2018 8.7 Protein, Total (g/dL) Date Value 03/01/2018 7.2 Albumin (g/dL) Date Value 03/01/2018 4.0 Bilirubin, Total (mg/dL) Date Value 03/01/2018 0.3 Alkaline Phosphatase (U/L) Date Value 03/01/2018 54 AST (U/L) Date Value 03/01/2018 25 ALT (U/L) Date Value 03/01/2018 21 Hemoglobin (g/dL) Date Value 03/01/2018 11.9 Hematocrit (%) Date Value 03/01/2018 38.0 WBC (k/uL) Date Value 03/01/2018 4.57 Cholesterol, Total (mg/dL) Date Value 09/28/2017 113 HDL Cholesterol (mg/dL) Date Value 09/28/2017 31 LDL Cholesterol (mg/dL) Date Value 09/28/2017 59 Triglyceride (mg/dL) Date Value 09/28/2017 114 Hemoglobin A1C Date Value Ref Range Status 03/01/2018 7.6 (H) 4.3 - 5.6 % Final 09/28/2017 7.0 (H) 4.3 - 5.6 % Final Comment: [employer] [place] [employer] guidelines indicate that patients with HgbA1c in the range 5.7-6.4% are at increased risk for development of diabetes, and intervention by lifestyle modification may be beneficial. HgbA1c greater or equal to 6.5% is considered diagnostic of diabetes. 05/11/2017 7.4 (H) 4.3 - 5.6 % Final Comment: [employer] [place] [employer] guidelines indicate that patients with HgbA1c in the range 5.7-6.4% are at increased risk for development of diabetes, and intervention by lifestyle modification may be beneficial. HgbA1c greater or equal to 6.5% is considered diagnostic of diabetes. 03/06/2017 7.7 (A) 0 - 5.7 % Final 12/17/2015 6.3 (H) 4.3 - 5.6 % Final Comment: [employer] guidelines indicate that patients with HgbA1c in the range 5.7-6.4% are at increased risk for development of diabetes, and intervention by lifestyle modification may be beneficial. HgbA1c greater or equal to 6.5% is considered diagnostic of diabetes. 05/19/2015 6.6 (H) 4.0 - 6.0 % Final Comment: [employer] guidelines indicate that patients with HgbA1c in the range 5.7-6.4% are at increased risk for development of diabetes, and intervention by lifestyle modification may be beneficial. HgbA1c greater or equal to 6.5% is considered diagnostic of diabetes. Ejection Fraction: No results found IMPRESSION: Ms. Lang is a 52 year old woman presents for cellulitis follow up. After my examination and review of data, I make the following recommendations. PLAN AND RECOMMENDATIONS: 1. Cellulitis of left lower extremity - ICD9: 682.6, ICD10: L03.116 - FLUCONAZOLE 150 MG TABLET - SULFAMETHOXAZOLE 800 MG-TRIMETHOPRIM 160 MG TABLET Continue with antibiotic unchanged for now If wound is not healed with current prescription, take additional 3 days of antibiotic which has been sent to the pharmacy Elevate the leg when seated Wear compression socks or stockings once healed, may use Marycarmen wrap also Take probiotics once antibiotics are completed. If GI upset, diarrhea does not clear once antibiotics are completed, call the office Call or return to clinic if not continuing to improve and resolve Advised to go to ER if develops chest pain, shortness of breath, or severe worsening of symptoms. Discussed risks, benefits, alternatives, and potential side effects of medications. Ms. Lang expressed understanding and agreed with the plan. Emile Ty APRN.CNS CNOV Observed: 06/07/2018 Status: COMPLETED Source: [place] 11:20 AM [facility] REPOSITORY Office Visit (INTMWS) EDEL LANG ([id number]) 1965 F Date Time Provider Department 06/07/18 11:20 AM EMILE TY (CARLOS) INTMWS During your visit today, we recorded the following information about you: Pulse Respiration Blood pressure Weight 68/minute 16/minute 124/82 148.8 kg Emile Ty APRN.CNS 06/07/2018 12:01 PM Signed Continue with antibiotic unchanged for now If wound is not healed with current prescription, take additional 3 days of antibiotic which has been sent to the pharmacy Elevate the leg when seated Wear compression socks or stockings once healed, may use Marycarmen wrap also Take probiotics once antibiotics are completed. If GI upset, diarrhea does not clear once antibiotics are completed, call the office Emile [email or web address] 06/07/2018 12:13 PM Signed OUTPATIENT VISIT DATE June 07, 2018 OUTPATIENT VISIT TYPE ESTABLISHED PRIMARY CARE PHYSICIAN: Terrie Lopez MD CHIEF COMPLAINT: Patient presents with: Hospital F/U History of Present Illness: Edel Lang is a 52 year old female who was last seen 04/2018 by Terrie Lopez MD. She has been seen in the past for ACTIVE PROBLEM LIST Esophageal Reflux Fibromyalgia Generalized Osteoarthritis Sprain of Lumbosacral (Joint) (Ligament) Hereditary and Idiopathic Peripheral Neuropathy Other Genital Herpes Mixed Incontinence Urge and Stress (Male)(female) Diabetes (Hcc) Adenopathy, Hilar Major depressive disorder, recurrent episode ([facility]) Anxiety Vitamin D Deficiency Pain of Left Lower Leg Morbid Obesity With Bmi of 45.0-49.9, Adult ([facility]) Abram (Obstructive Sleep Apnea) Asthma With Copd With Exacerbation ([facility]) Htn (Hypertension) Ganglion Cyst of Finger of Right Hand Presents today for ER follow up of cellulitis left lower extremity. Was seen in prior May 27, 2018, treated with doxycycline. Presented to [facility] May 29, 2018 with fever increase in swelling in the leg. Doxycycline was discontinued. She was begun on Bactrim for better MRSA coverage which she has had on previous. Impression was left leg cellulitis. She presents today for follow-up visit. She continues on Bactrim. She has antibiotics 3 to June 09, 2018. She has noted some diarrhea with the antibiotics. Redness swelling and pain is decreased in her leg. She has noted decreased drainage from above prior skin graft on her left lower leg. She's been applying bacitracin ointment twice daily and covering with gauze or Band-Aid. No recent hospital or ED visits. No new medical problems or medications. Able to obtain medications. No problems with taking medications or note side effects. PAST MEDICAL HISTORY Diagnosis Date - FIBROMYALGIA - Cellulitis and abscess of unspecified site 11/26 right leg - Depressive disorder, not elsewhere classified - Dysmetabolic syndrome X 08/09/2006 - Esophageal reflux Gastroesophageal reflux - Generalized anxiety disorder - Hx of cystoscopy 09/11/2017 - Localized osteoarthrosis not specified whether primary or secondary, other specified sites bilateral knees - Morbid obesity with BMI of 50.0-59.9, adult (HCC) - Other genital herpes 08/09/2006 - Type II or unspecified type diabetes mellitus without mention of complication, not stated as uncontrolled - Unspecified asthma(493.90) - Unspecified essential hypertension Essential hypertension - Whooping cough, unspecified organism 11/26 PAST SURGICAL HISTORY Procedure Laterality Date - DELIVERY ONLY 1993 , low cervical - COLONOSCOP W/ OR W/O [facility] SPEC 03/24/2005 Colonoscopy - KNEE SCOPE,DIAGNOSTIC 2002 Arthroscopy, knee-right - KNEE SCOPE,DIAGNOSTIC 2003 Arthroscopy, knee-left - PAST SURGICAL HISTORY OF 1997 uterus out as well as cervix - PAST SURGICAL HISTORY OF 03/29/11 Excision of Rt lower leg lesion - PAST SURGICAL HISTORY OF 07/2014 cardiac cath - REMOVAL OF OVARY(S) 1999 Oophorectom bilateral - REMOVAL OF TONSILS,<10 Y/O 1967 Tonsillectomy - REPAIR INCISIONAL HERNIA,JUANA 05/11/11 with large ventralex mesh - REVISE MEDIAN N/CARPAL TUNNEL SURG 05-16-14 Carpal tunnel decomp right and excision ganglion righ thumb - REVISE MEDIAN N/CARPAL TUNNEL SURG Left 09/09/2015 Carpal tunnel decomp left - SKIN SUB GRAFT LEG 2012 left LE FAMILY HISTORY Problem Relation Age of Onset - Diabetes Mother - Hypertension Mother - Psychiatry Mother severe depression, bipolar - Asthma Mother - Arthritis Mother rheumatoid arthritis - fibromyalgia [OTHER] Mother - Hypertension Father - Stroke Father - traumatic brain injury [OTHER] Father - Alzheimer's Disease Maternal Grandmother - Hypertension Maternal Grandfather - Stroke Maternal Grandfather - parkinsons [OTHER] Maternal Grandfather - Stroke Paternal Grandmother 8 - Hypertension Paternal Grandmother - Seizures Son - schizo - affective [OTHER] Son - autism [OTHER] Son - partial agenesis of corpus collosm [OTHER] Son - depression [OTHER] Son Social History Substance Use Topics - Smoking status: Never Smoker - Smokeless tobacco: Never Used - Alcohol use No Comment: recovering alcoholic-quit 1985 ALLERGIES: ALLERGIES Allergen Reactions - Nia [Fexofenadi* Shortness of Breath - Ancef [Cefazolin So* Hives - Clindamycin Diarrhea - Duoderm [Other] severe burning pain at point of contact. No redness. - Elavil [Amitriptyli* hallucinations - Macrobid [Nitrofura* Hives - Norvasc [Amlodipine] Swelling MEDICATIONS mupirocin (BACTROBAN) 2 % ointment APPLY TO AFFECTED AREA ONCE DAILY nadolol (CORGARD) 80 mg tablet Take 2 tablets by mouth once daily. lidocaine (LMX) 4 % cream Apply thin layer to affected area three times a day as needed for pain traMADol (ULTRAM) 50 mg tablet Take 1-2 tablets by mouth every 6 hours as needed for up to 90 days. ondansetron orally disintegrating (ZOFRAN ODT) 4 mg disintegrating tablet Take 1 tablet by mouth every 8 hours as needed for Nausea/Vomiting. omeprazole (PRILOSEC) 20 mg capsule TAKE 1 CAPSULE BY MOUTH DAILY promethazine (PHENERGAN) 25 mg tablet Take 1 tablet by mouth every 6 hours as needed. busPIRone (BUSPAR) 5 mg tablet Take 15 mg by mouth twice daily. Dose needs clarified with patients pharmacy. fluconazole (DIFLUCAN) 150 mg tablet 1 tablet today and repeat in 72 hours oxybutynin ER (DITROPAN XL) 15 mg 24 hr Extended Rel Tab TAKE 1 TABLET BY MOUTH ONCE DAILY. lisinopril (ZESTRIL, PRINIVIL) 5 mg tablet Take 1 tablet by mouth once daily. orphenadrine ER (NORFLEX) 100 mg tablet Take 1 tablet by mouth twice daily as needed for Muscle Spasm. dicyclomine (BENTYL) 20 mg tablet Take 1 tablet by mouth three times daily. valACYclovir (VALTREX) 500 mg tablet Take 1 tablet by mouth once daily. divalproex ER (DEPAKOTE ER) 500 mg 24 hr tablet take 1 tablet by mouth daily guaiFENesin (MUCINEX) 600 mg 12 hr tablet Take 2 tablets by mouth twice daily as needed. Omeprazole Magnesium (PRILOSEC OTC) 20 mg tablet Take 1 tablet by mouth daily before breakfast. 1/2 hr before meal. gabapentin (NEURONTIN) 600 mg tablet TAKE 2 TABLETS THREE TIMES A DAY hydrocortisone (ANUSOL-HC) 2.5 % rectal cream 1 application by RECTAL route twice daily. As directed blood sugar diagnostic (BLOOD GLUCOSE TEST) test strip Test blood sugar(s) 3 times daily. Dx: Type 2 DM - Uncontrolled E11.65 Insulin: No glimepiride (AMARYL) 2 mg tablet Take 2 tablets by mouth twice daily with meals. As directed Lancets lancets Test blood sugar(s) 3 times daily. Dx: Type 2 DM - Uncontrolled E11.65 Insulin: No diazePAM (VALIUM) 5 mg tablet Take 10 mg by mouth once daily as needed for Anxiety. triamcinolone acetonide (KENALOG) 0.1 % cream Apply 1 application to affected area twice daily. For itchy lesions for 2 weeks (torso or extremities) as directed mometasone-formoterol (DULERA) 100-5 mcg/actuation inhaler Inhale 2 Puffs as instructed twice daily. albuterol HFA (VENTOLIN HFA) 90 mcg/actuation inhaler Inhale 2 Puffs as instructed every 4 hours as needed for Wheezing/Shortness of Breath. fluticasone (FLONASE) 50 mcg/actuation nasal spray Use 2 Sprays in each nostril once daily. blood sugar diagnostic (FREESTYLE LITE STRIPS) test strip Test blood sugar(s) 3 times daily. Dx: Type 2 DM - Controlled E11.9 Insulin: Yes CPAP Initiate CPAP @ 14 cm of water with humidification. EPR setting of 3. Mask (per patient preference) optional chin strap (if indicated) , filters, tubing, humidifier and lifetime supplies. QUEtiapine (SEROQUEL) 300 mg tablet Take 1 tablet by mouth daily at bedtime. Also takes [address] Patterson. fluconazole (DIFLUCAN) 150 mg tablet Take 1 tablet by mouth once daily for 1 day. sulfamethoxazole-trimethoprim (BACTRIM DS) 800-160 mg per tablet Take 1 tablet by mouth twice daily for 3 days. Continue for three additional days. Take with food Benzonatate 200 mg capsule Take 1 capsule by mouth three times daily as needed. benzocaine-menthol (CEPACOL) 15-2.6 mg lozg lozenge Take 1 Lozenge by mouth every 3 hours as needed. COMPOUNDED PRESCRIPTION Nebulizer for home use. Diagnosis: Asthma exacerbation REVIEW OF SYSTEMS: GENERAL: Negative for: Weight loss or gain, Fever or Chills, Weakness and Sleep difficulties. Physical Examination: BP 124/82 Pulse 68 Resp 16 Wt 328 lb (148.8kg) BP w/Orthostatic Vitals Date and Time Orthostatic BP Orthostatic Pulse BP Pulse BP Position BP Site BP Cuff Size 06/07/18 1126 -- -- 124/82 68 Sitting Right Arm Regular Adult Peak Flow Date and Time PF Resp 06/07/18 1126 -- 16 General appearance: Well appearing, alert, in no acute distress, well-hydrated, well nourished. Skin: Skin color, texture, turgor normal, + erythema, swelling, redness left lower extremity ankle to mid calf, lateral and anterior surfaces, open would with red wound base, serous drainage,Proximal and lateral to the prior skin graft approximately 0.25 x 1 Extremities: 1+ lower extremity edema, no clubbing or cyanosis. Good capillary refill. Peripheral pulses: Normal Neuro: Gait normal. Sensation grossly intact. Reviewed chart, outside records, tests I personally interviewed, confirmed and edited the above information if obtained by others. TESTING: Glucose (mg/dL) Date Value 03/01/2018 179 Potassium (mmol/L) Date Value 03/01/2018 4.1 Sodium (mmol/L) Date Value 03/01/2018 138 Chloride (mmol/L) Date Value 03/01/2018 100 CO2 (mmol/L) Date Value 03/01/2018 23 Creatinine (mg/dL) Date Value 03/01/2018 0.84 BUN (mg/dL) Date Value 03/01/2018 14 Anion Gap (mmol/L) Date Value 03/01/2018 15 Calcium (mg/dL) Date Value 03/01/2018 8.7 Glucose (mg/dL) Date Value 03/01/2018 179 Potassium (mmol/L) Date Value 03/01/2018 4.1 Sodium (mmol/L) Date Value 03/01/2018 138 Chloride (mmol/L) Date Value 03/01/2018 100 CO2 (mmol/L) Date Value 03/01/2018 23 Creatinine (mg/dL) Date Value 03/01/2018 0.84 BUN (mg/dL) Date Value 03/01/2018 14 Anion Gap (mmol/L) Date Value 03/01/2018 15 Calcium (mg/dL) Date Value 03/01/2018 8.7 Protein, Total (g/dL) Date Value 03/01/2018 7.2 Albumin (g/dL) Date Value 03/01/2018 4.0 Bilirubin, Total (mg/dL) Date Value 03/01/2018 0.3 Alkaline Phosphatase (U/L) Date Value 03/01/2018 54 AST (U/L) Date Value 03/01/2018 25 ALT (U/L) Date Value 03/01/2018 21 Hemoglobin (g/dL) Date Value 03/01/2018 11.9 Hematocrit (%) Date Value 03/01/2018 38.0 WBC (k/uL) Date Value 03/01/2018 4.57 Cholesterol, Total (mg/dL) Date Value 09/28/2017 113 HDL Cholesterol (mg/dL) Date Value 09/28/2017 31 LDL Cholesterol (mg/dL) Date Value 09/28/2017 59 Triglyceride (mg/dL) Date Value 09/28/2017 114 Hemoglobin A1C Date Value Ref Range Status 03/01/2018 7.6 (H) 4.3 - 5.6 % Final 09/28/2017 7.0 (H) 4.3 - 5.6 % Final Comment: [employer] [place] [employer] guidelines indicate that patients with HgbA1c in the range 5.7-6.4% are at increased risk for development of diabetes, and intervention by lifestyle modification may be beneficial. HgbA1c greater or equal to 6.5% is considered diagnostic of diabetes. 05/11/2017 7.4 (H) 4.3 - 5.6 % Final Comment: [employer] [place] [employer] guidelines indicate that patients with HgbA1c in the range 5.7-6.4% are at increased risk for development of diabetes, and intervention by lifestyle modification may be beneficial. HgbA1c greater or equal to 6.5% is considered diagnostic of diabetes. 03/06/2017 7.7 (A) 0 - 5.7 % Final 12/17/2015 6.3 (H) 4.3 - 5.6 % Final Comment: [employer] guidelines indicate that patients with HgbA1c in the range 5.7-6.4% are at increased risk for development of diabetes, and intervention by lifestyle modification may be beneficial. HgbA1c greater or equal to 6.5% is considered diagnostic of diabetes. 05/19/2015 6.6 (H) 4.0 - 6.0 % Final Comment: [employer] guidelines indicate that patients with HgbA1c in the range 5.7-6.4% are at increased risk for development of diabetes, and intervention by lifestyle modification may be beneficial. HgbA1c greater or equal to 6.5% is considered diagnostic of diabetes. Ejection Fraction: No results found IMPRESSION: Ms. Lang is a 52 year old woman presents for cellulitis follow up. After my examination and review of data, I make the following recommendations. PLAN AND RECOMMENDATIONS: 1. Cellulitis of left lower extremity - ICD9: 682.6, ICD10: L03.116 - FLUCONAZOLE 150 MG TABLET - SULFAMETHOXAZOLE 800 MG-TRIMETHOPRIM 160 MG TABLET Continue with antibiotic unchanged for now If wound is not healed with current prescription, take additional 3 days of antibiotic which has been sent to the pharmacy Elevate the leg when seated Wear compression socks or stockings once healed, may use Marycarmen wrap also Take probiotics once antibiotics are completed. If GI upset, diarrhea does not clear once antibiotics are completed, call the office Call or return to clinic if not continuing to improve and resolve Advised to go to ER if develops chest pain, shortness of breath, or severe worsening of symptoms. Discussed risks, benefits, alternatives, and potential side effects of medications. Ms. Lang expressed understanding and agreed with the plan. Emile Ty APRN.WINDING OPERATOR Referring Provider: SELF [200] Allergies As of Date: 06/07/2018 Noted Allergy Reaction NIA (FEXOFENADINE HCL) 01/25/2006 12 - Shortness of Breath ANCEF (CEFAZOLIN SODIUM) 01/25/2006 4 - Hives CLINDAMYCIN 01/05/2007 6 - Diarrhea duoderm [Other] 05/21/2007 Comments: severe burning pain at point of contact. No redness. ELAVIL (AMITRIPTYLINE) 04/27/2007 Comments: hallucinations MACROBID (NITROFURANTOIN MONOHYD/*05/15/2007 4 - Hives NORVASC (AMLODIPINE) 12/11/2008 7 - Swelling Date Reviewed: 06/07/2018 Reviewed by: Edel Montejo LPN - Fully Assessed Reason for Visit: Hospital F/U [57] Primary Visit Diagnosis:Cellulitis of left lower extremity [L03.116] Order(s):fluconazole (DIFLUCAN) 150 mg tabletTake 1 tablet by mouth once daily for 1 day.Disp: 1 tabletRfl: 0 sulfamethoxazole-trimethoprim (BACTRIM DS) 800-160 mg per tabletTake 1 tablet by mouth twice daily for 3 days. Continue for three additional days. Take with foodDisp: 6 tabletRfl: 0 Prescriptions as of 06/07/2018 Sig: MUPIROCIN 2 % TOPICAL OINTMENT APPLY TO AFFECTED AREA ONCE D* NADOLOL 80 MG TABLET Take 2 tablets by mouth once * LIDOCAINE 4 % TOPICAL CREAM Apply thin layer to affected * TRAMADOL 50 MG TABLET Take 1-2 tablets by mouth nathalie* ONDANSETRON 4 MG DISINTEGRATI* Take 1 tablet by mouth every * OMEPRAZOLE 20 MG CAPSULE,MELINDA* TAKE 1 CAPSULE BY MOUTH DAILY PROMETHAZINE 25 MG TABLET Take 1 tablet by mouth every * BUSPIRONE 5 MG TABLET Take 15 mg by mouth twice josé* FLUCONAZOLE 150 MG TABLET 1 tablet today and repeat in * OXYBUTYNIN CHLORIDE ER 15 MG * TAKE 1 TABLET BY MOUTH ONCE D* LISINOPRIL 5 MG TABLET Take 1 tablet by mouth once d* ORPHENADRINE CITRATE ER 100 M* Take 1 tablet by mouth twice * DICYCLOMINE 20 MG TABLET Take 1 tablet by mouth three * VALACYCLOVIR 500 MG TABLET Take 1 tablet by mouth once d* DIVALPROEX ER 500 MG TABLET,E* take 1 tablet by mouth daily GUAIFENESIN ER 600 MG TABLET,* Take 2 tablets by mouth twice* OMEPRAZOLE MAGNESIUM 20 MG TA* Take 1 tablet by mouth daily * GABAPENTIN 600 MG TABLET TAKE 2 TABLETS THREE TIMES A * HYDROCORTISONE 2.5 % TOPICAL * 1 application by RECTAL route* BLOOD SUGAR DIAGNOSTIC STRIPS Test blood sugar(s) 3 times d* GLIMEPIRIDE 2 MG TABLET Take 2 tablets by mouth twice* LANCETS Test blood sugar(s) 3 times d* DIAZEPAM 5 MG TABLET Take 10 mg by mouth once kala* TRIAMCINOLONE ACETONIDE 0.1 %* Apply 1 application to affect* MOMETASONE-FORMOTEROL HFA 100* Inhale 2 Puffs as instructed * ALBUTEROL SULFATE HFA 90 MCG/* Inhale 2 Puffs as instructed * FLUTICASONE 50 MCG/ACTUATION * Use 2 Sprays in each nostril * BLOOD SUGAR DIAGNOSTIC STRIPS Test blood sugar(s) 3 times d* CPAP Initiate CPAP @ 14 cm of wate* QUETIAPINE 300 MG TABLET Take 1 tablet by mouth daily * Patient taking differently: Take 300 mg by mouth daily at* FLUCONAZOLE 150 MG TABLET Take 1 tablet by mouth once d* SULFAMETHOXAZOLE 800 MG-TRIME* Take 1 tablet by mouth twice * BENZONATATE 200 MG CAPSULE Take 1 capsule by mouth three* Patient not taking: Reported on 06/07/2018 BENZOCAINE-MENTHOL 15 MG-2.6 * Take 1 Lozenge by mouth every* Patient not taking: Reported on 06/07/2018 COMPOUNDED PRESCRIPTION Nebulizer for home use. Diagn* Problem List As Of Date 06/07/2018 Noted Resolved ESOPHAGEAL REFLUX [K21.9] More... Unspecified asthma(493.90) [J45.909] 06/02/2017 More... 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 Unspecified vitamin D deficiency [E55.9] INVALID FOR*02/27/2013 GENITAL HERPES NEC [A60.00] INVALID FOR* URGE AND STRESS MIXED INCONTINENCE [N39.46] INVALID FOR* LACERATION -NOT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 Unspecified vitamin D deficiency [E55.9] INVALID FOR*02/27/2013 GENITAL HERPES NEC [A60.00] INVALID FOR* URGE AND STRESS MIXED INCONTINENCE [N39.46] INVALID FOR* LACERATION -NOT COMPLICATED BREAST [S21.009A] INVALID FOR*02/27/2013 Diabetes (HCC) [E11.9] INVALID FOR* Enthesopathy of unspecified site [M77.9] INVALID FOR*02/27/2013 Adenopathy, Hilar [R59.0] INVALID FOR* Major depressive disorder, recurrent episode (H*INVALID FOR* Abnormal mammogram, unspecified [R92.8] INVALID FOR*06/02/2017 Wound, open, breast [S21.009A] INVALID FOR*02/27/2013 Benign neoplasm of skin of lower limb, includin*INVALID FOR*02/27/2013 Umbilical hernia without mention of obstruction*INVALID FOR*06/02/2017 Ventral hernia, unspecified, without mention of*INVALID FOR*06/02/2017 Anxiety [F41.9] INVALID FOR* Vitamin d deficiency [E55.9] INVALID FOR* Urge incontinence of urine [N39.41] INVALID FOR*06/02/2017 Pain of left lower leg [M79.662] INVALID FOR* Carpal tunnel syndrome of right wrist [G56.01] INVALID FOR*06/02/2017 Morbid obesity with BMI of 45.0-49.9, adult (HC* ABRAM (obstructive sleep apnea) [G47.33] INVALID FOR* More... Left carpal tunnel syndrome [G56.02] INVALID FOR*06/02/2017 Asthma with COPD with exacerbation (HCC) [J44.1*INVALID FOR* HTN (hypertension) [I10] INVALID FOR* Ganglion cyst of finger of right hand [M67.441] INVALID FOR* More... Other instructions from your clinician: ASSESSMENT/PLAN: 1. Cellulitis of skin - ICD9: 682.9, ICD10: L03.90 - Begin treatment with doxycycline - No lymphangetic streaking, this was defined for patient to watch for and to seek medical care immediately if appears - Area of cellulitis defined with pen, seek further attention if this area continues to enlarge - Follow up for recheck in 2 week with pcp for recheck - DOXYCYCLINE MONOHYDRATE 100 MG CAPSULE Prescriptions ordered this encounter Disp Refills Start End DOXYCYCLINE MONOHYDRATE 100 MG CAPSU* 20 c* 0 05/27/2018 06/06/2018 Route: ORAL Sig: Take 1 capsule by mouth twice daily for 10 days. Medications Discontinued During This Encounter doxycycline monohydrate (MONODOX) 10* 20 c* 0 04/04/2018 05/27/2018 Route: ORAL Sig: Take 1 capsule by mouth twice daily for 10 days. Disc: Reason for discontinue is not on file. Encounter Status:Closed by MILADIS XIAO CNP on 05/27/18 PROGRESS Observed: 05/17/2018 Status: COMPLETED Source: [place] 10:00 AM [facility] [place] REPOSITORY O ID: [id number] Author: Terrie Lopez Service: (none) Author Type: Physician Type: Progress Notes Filed: 05/30/2018 5:53 PM Note Text: Patient presents for DM SMA with Dr. Lopez and Licha Moralez, PharmD GOALS: A1c < 7% Edel Lang is a 52 year old female was last seen by PCP, Dr. Lopez on 03/26/18. At last PCP visit no DM medication changes were made. Still having some stress eating Loved one is in the hospital in [place] and she is spending a lot of time there and ta work 89 BG this morning Current DM Medications: Glimepiride 4mg BID ? Patient denies CP, SOB, AG, blurred vision, dizziness or lightheadedness ? Patient denies symptoms of hypoglycemia (sweating, anxiety, palpitations, hunger, and tremor) ? Patient denies symptoms hyperglycemia (polyuria, polydipsia) ? Patient denies potential medication adverse effects ALLERGIES Allergen Reactions - Nia [Fexofenadi* Shortness of Breath - Ancef [Cefazolin So* Hives - Clindamycin Diarrhea - Duoderm [Other] severe burning pain at point of contact. No redness. - Elavil [Amitriptyli* hallucinations - Macrobid [Nitrofura* Hives - Norvasc [Amlodipine] Swelling PAST MEDICAL HISTORY Diagnosis Date - FIBROMYALGIA - Cellulitis and abscess of unspecified site 11/26 right leg - Depressive disorder, not elsewhere classified - Dysmetabolic syndrome X 08/09/2006 - Esophageal reflux Gastroesophageal reflux - Generalized anxiety disorder - Hx of cystoscopy 09/11/2017 - Localized osteoarthrosis not specified whether primary or secondary, other specified sites bilateral knees - Morbid obesity with BMI of 50.0-59.9, adult (HCC) - Other genital herpes 08/09/2006 - Type II or unspecified type diabetes mellitus without mention of complication, not stated as uncontrolled - Unspecified asthma(493.90) - Unspecified essential hypertension Essential hypertension - Whooping cough, unspecified organism 11/26 Current Outpatient Prescriptions: omeprazole (PRILOSEC) 20 mg capsule TAKE 1 CAPSULE BY MOUTH DAILY promethazine (PHENERGAN) 25 mg tablet Take 1 tablet by mouth every 6 hours as needed. busPIRone (BUSPAR) 5 mg tablet Take 15 mg by mouth twice daily. Dose needs clarified with patients pharmacy. mupirocin (BACTROBAN) 2 % ointment apply to affected area once daily fluconazole (DIFLUCAN) 150 mg tablet 1 tablet today and repeat in 72 hours lidocaine (LMX) 4 % cream Apply thin layer to affected area three times a day as needed for pain traMADol (ULTRAM) 50 mg tablet Take 1-2 tablets by mouth every 6 hours as needed for up to 90 days. oxybutynin ER (DITROPAN XL) 15 mg 24 hr Extended Rel Tab TAKE 1 TABLET BY MOUTH ONCE DAILY. lisinopril (ZESTRIL, PRINIVIL) 5 mg tablet Take 1 tablet by mouth once daily. orphenadrine ER (NORFLEX) 100 mg tablet Take 1 tablet by mouth twice daily as needed for Muscle Spasm. dicyclomine (BENTYL) 20 mg tablet Take 1 tablet by mouth three times daily. nadolol (CORGARD) 80 mg tablet Take 1-2 tablets by mouth once daily. As directed for high blood pressure and migraines valACYclovir (VALTREX) 500 mg tablet Take 1 tablet by mouth once daily. divalproex ER (DEPAKOTE ER) 500 mg 24 hr tablet take 1 tablet by mouth daily guaiFENesin (MUCINEX) 600 mg 12 hr tablet Take 2 tablets by mouth twice daily as needed. Benzonatate 200 mg capsule Take 1 capsule by mouth three times daily as needed. Omeprazole Magnesium (PRILOSEC OTC) 20 mg tablet Take 1 tablet by mouth daily before breakfast. 1/2 hr before meal. gabapentin (NEURONTIN) 600 mg tablet TAKE 2 TABLETS THREE TIMES A DAY hydrocortisone (ANUSOL-HC) 2.5 % rectal cream 1 application by RECTAL route twice daily. As directed blood sugar diagnostic (BLOOD GLUCOSE TEST) test strip Test blood sugar(s) 3 times daily. Dx: Type 2 DM - Uncontrolled E11.65 Insulin: No glimepiride (AMARYL) 2 mg tablet Take 2 tablets by mouth twice daily with meals. As directed Lancets lancets Test blood sugar(s) 3 times daily. Dx: Type 2 DM - Uncontrolled E11.65 Insulin: No benzocaine-menthol (CEPACOL) 15-2.6 mg lozg lozenge Take 1 Lozenge by mouth every 3 hours as needed. diazePAM (VALIUM) 5 mg tablet Take 10 mg by mouth once daily as needed for Anxiety. triamcinolone acetonide (KENALOG) 0.1 % cream Apply 1 application to affected area twice daily. For itchy lesions for 2 weeks (torso or extremities) as directed mometasone-formoterol (DULERA) 100-5 mcg/actuation inhaler Inhale 2 Puffs as instructed twice daily. albuterol HFA (VENTOLIN HFA) 90 mcg/actuation inhaler Inhale 2 Puffs as instructed every 4 hours as needed for Wheezing/Shortness of Breath. fluticasone (FLONASE) 50 mcg/actuation nasal spray Use 2 Sprays in each nostril once daily. blood sugar diagnostic (FREESTYLE LITE STRIPS) test strip Test blood sugar(s) 3 times daily. Dx: Type 2 DM - Controlled E11.9 Insulin: Yes CPAP Initiate CPAP @ 14 cm of water with humidification. EPR setting of 3. Mask (per patient preference) optional chin strap (if indicated) , filters, tubing, humidifier and lifetime supplies. COMPOUNDED PRESCRIPTION Nebulizer for home use. Diagnosis: Asthma exacerbation QUEtiapine (SEROQUEL) 300 mg tablet Take 1 tablet by mouth daily at bedtime. Also takes [address] Patterson. (Patient taking differently: Take 300 mg by mouth daily at bedtime. ) No current facility-administered medications for this visit. VITALS: BP 114/82 Pulse 64 Last 3 Encounter BP Readings: Date: BP: 04/27/2018 130/74 04/20/2018 126/74 04/17/2018 147/80 Wt: 146.1 kg (322 lb 0.6 oz) BMI: 53.59 kg/(m2) LABS Lab Results Component Value Date HBA1C 7.6 03/01/2018 HBA1C 7.0 09/28/2017 HBA1C 7.4 05/11/2017 CMP: Glucose 179 03/01/2018 BUN 14 03/01/2018 Creatinine 0.84 03/01/2018 Sodium 138 03/01/2018 Potassium 4.1 03/01/2018 Chloride 100 03/01/2018 CO2 23 03/01/2018 Protein, Total 7.2 03/01/2018 Albumin 4.0 03/01/2018 Calcium 8.7 03/01/2018 Alkaline Phosphatase 54 03/01/2018 Bilirubin, Total 0.3 03/01/2018 AST 25 03/01/2018 ALT 21 03/01/2018 Estimated Creatinine Clearance: 111.9 mL/min (based on SCr of 0.84 mg/dL). Last Lipid Panel Lab Results Component Value Date CHOL 113 09/28/2017 Lab Results Component Value Date HDL 31 09/28/2017 Lab Results Component Value Date LDL 59 09/28/2017 Lab Results Component Value Date TG 114 09/28/2017 Albumin/Creat Ratio (mg/g) Date Value 05/11/2017 Not calculated ASSESSMENT/PLAN: 1. Type 2 diabetes mellitus without complication, without long-term current use of insulin (HCC) - ICD9: 250.00, ICD10: E11.9 (primary diagnosis) Controlled. - Continue current medications 2. Generalized osteoarthritis - ICD9: 715.00, ICD10: M15.9 See below. Continue present management. Further evaluation and treatment as indicated. - TRAMADOL 50 MG TABLET 3. Fibromyalgia - ICD9: 729.1, ICD10: M79.7 As above - TRAMADOL 50 MG TABLET 4. Back strain, sequela - ICD9: 905.7, ICD10: S39.012S Continue present management. Further evaluation and treatment as indicated. - OXYCODONE-ACETAMINOPHEN 5 MG-325 MG TABLET 5. Acute midline low back pain without sciatica - ICD9: 724.2, ICD10: M54.5 Lumbosacral sprain - Patient given instructions use of medications as ordered, intermittent rest and weight loss - OXYCODONE-ACETAMINOPHEN 5 MG-325 MG TABLET 6. Pain of left lower leg - ICD9: 729.5, ICD10: M79.662 Continue present management. - OXYCODONE-ACETAMINOPHEN 5 MG-325 MG TABLET Patient is scheduled to see PCP 07/03. Patient to return to clinic for PharmD f/u prn. Patient verbalized understanding of instructions. Dr. Lopez and Licha Moralez PharmD The patient was seen; chart reviewed and I concur with the above evaluation and plan. PharmD and I discussed with DM SMA group medications for management of DM, HTN and lipids. Also reviewed diet and exercise to help with control of DM. Discussed with each patient individual meds and management of their diabetes issues. Also discussed with group efforts at weight loss with exercise as able and limiting calories. Overall has been able to get weight down compared to years ago. Reviewed Synopsis. Reviewed one on one issues with headaches ([place] not giving 56 pills nadolol)--fixed RX. Also issue with tramadol not having refills. Increased leg pain left since walking more visiting family member at [facility] [place]. PDMP website checked and validated. All prescriptions have been APPROPRIATELY filled. No suspicious activity was identified. 05/30/2018 by MD Terrie Smith MD CNOV Observed: 05/17/2018 Status: COMPLETED Source: [place] 10:00 AM [facility] REPOSITORY Office Visit (INTMWS) EDEL LANG ([id number]) 1965 F Date Time Provider Department 05/17/18 10:00 AM TERRIE LOPE[facility] INTMWS During your visit today, we recorded the following information about you: Pulse Blood pressure 64/minute 114/82 Terrie Lopez MD 05/30/2018 5:53 PM Signed Patient presents for DM SMA with Dr. Lopez and Licha Moralez, Trudy GOALS: A1c < 7% Edel Lang is a 52 year old female was last seen by PCP, Dr. Lopez on 03/26/18. At last PCP visit no DM medication changes were made. Still having some stress eating Loved one is in the hospital in [place] and she is spending a lot of time there and ta work 89 BG this morning Current DM Medications: Glimepiride 4mg BID ? Patient denies CP, SOB, AG, blurred vision, dizziness or lightheadedness ? Patient denies symptoms of hypoglycemia (sweating, anxiety, palpitations, hunger, and tremor) ? Patient denies symptoms hyperglycemia (polyuria, polydipsia) ? Patient denies potential medication adverse effects ALLERGIES Allergen Reactions - Nia [Fexofenadi* Shortness of Breath - Ancef [Cefazolin So* Hives - Clindamycin Diarrhea - Duoderm [Other] severe burning pain at point of contact. No redness. - Elavil [Amitriptyli* hallucinations - Macrobid [Nitrofura* Hives - Norvasc [Amlodipine] Swelling PAST MEDICAL HISTORY Diagnosis Date - FIBROMYALGIA - Cellulitis and abscess of unspecified site 11/26 right leg - Depressive disorder, not elsewhere classified - Dysmetabolic syndrome X 08/09/2006 - Esophageal reflux Gastroesophageal reflux - Generalized anxiety disorder - Hx of cystoscopy 09/11/2017 - Localized osteoarthrosis not specified whether primary or secondary, other specified sites bilateral knees - Morbid obesity with BMI of 50.0-59.9, adult (HCC) - Other genital herpes 08/09/2006 - Type II or unspecified type diabetes mellitus without mention of complication, not stated as uncontrolled - Unspecified asthma(493.90) - Unspecified essential hypertension Essential hypertension - Whooping cough, unspecified organism 11/26 Current Outpatient Prescriptions: omeprazole (PRILOSEC) 20 mg capsule TAKE 1 CAPSULE BY MOUTH DAILY promethazine (PHENERGAN) 25 mg tablet Take 1 tablet by mouth every 6 hours as needed. busPIRone (BUSPAR) 5 mg tablet Take 15 mg by mouth twice daily. Dose needs clarified with patients pharmacy. mupirocin (BACTROBAN) 2 % ointment apply to affected area once daily fluconazole (DIFLUCAN) 150 mg tablet 1 tablet today and repeat in 72 hours lidocaine (LMX) 4 % cream Apply thin layer to affected area three times a day as needed for pain traMADol (ULTRAM) 50 mg tablet Take 1-2 tablets by mouth every 6 hours as needed for up to 90 days. oxybutynin ER (DITROPAN XL) 15 mg 24 hr Extended Rel Tab TAKE 1 TABLET BY MOUTH ONCE DAILY. lisinopril (ZESTRIL, PRINIVIL) 5 mg tablet Take 1 tablet by mouth once daily. orphenadrine ER (NORFLEX) 100 mg tablet Take 1 tablet by mouth twice daily as needed for Muscle Spasm. dicyclomine (BENTYL) 20 mg tablet Take 1 tablet by mouth three times daily. nadolol (CORGARD) 80 mg tablet Take 1-2 tablets by mouth once daily. As directed for high blood pressure and migraines valACYclovir (VALTREX) 500 mg tablet Take 1 tablet by mouth once daily. divalproex ER (DEPAKOTE ER) 500 mg 24 hr tablet take 1 tablet by mouth daily guaiFENesin (MUCINEX) 600 mg 12 hr tablet Take 2 tablets by mouth twice daily as needed. Benzonatate 200 mg capsule Take 1 capsule by mouth three times daily as needed. Omeprazole Magnesium (PRILOSEC OTC) 20 mg tablet Take 1 tablet by mouth daily before breakfast. 1/2 hr before meal. gabapentin (NEURONTIN) 600 mg tablet TAKE 2 TABLETS THREE TIMES A DAY hydrocortisone (ANUSOL-HC) 2.5 % rectal cream 1 application by RECTAL route twice daily. As directed blood sugar diagnostic (BLOOD GLUCOSE TEST) test strip Test blood sugar(s) 3 times daily. Dx: Type 2 DM - Uncontrolled E11.65 Insulin: No glimepiride (AMARYL) 2 mg tablet Take 2 tablets by mouth twice daily with meals. As directed Lancets lancets Test blood sugar(s) 3 times daily. Dx: Type 2 DM - Uncontrolled E11.65 Insulin: No benzocaine-menthol (CEPACOL) 15-2.6 mg lozg lozenge Take 1 Lozenge by mouth every 3 hours as needed. diazePAM (VALIUM) 5 mg tablet Take 10 mg by mouth once daily as needed for Anxiety. triamcinolone acetonide (KENALOG) 0.1 % cream Apply 1 application to affected area twice daily. For itchy lesions for 2 weeks (torso or extremities) as directed mometasone-formoterol (DULERA) 100-5 mcg/actuation inhaler Inhale 2 Puffs as instructed twice daily. albuterol HFA (VENTOLIN HFA) 90 mcg/actuation inhaler Inhale 2 Puffs as instructed every 4 hours as needed for Wheezing/Shortness of Breath. fluticasone (FLONASE) 50 mcg/actuation nasal spray Use 2 Sprays in each nostril once daily. blood sugar diagnostic (FREESTYLE LITE STRIPS) test strip Test blood sugar(s) 3 times daily. Dx: Type 2 DM - Controlled E11.9 Insulin: Yes CPAP Initiate CPAP @ 14 cm of water with humidification. EPR setting of 3. Mask (per patient preference) optional chin strap (if indicated) , filters, tubing, humidifier and lifetime supplies. COMPOUNDED PRESCRIPTION Nebulizer for home use. Diagnosis: Asthma exacerbation QUEtiapine (SEROQUEL) 300 mg tablet Take 1 tablet by mouth daily at bedtime. Also takes [address] Patterson. (Patient taking differently: Take 300 mg by mouth daily at bedtime. ) No current facility-administered medications for this visit. VITALS: BP 114/82 Pulse 64 Last 3 Encounter BP Readings: Date: BP: 04/27/2018 130/74 04/20/2018 126/74 04/17/2018 147/80 Wt: 146.1 kg (322 lb 0.6 oz) BMI: 53.59 kg/(m2) LABS Lab Results Component Value Date HBA1C 7.6 03/01/2018 HBA1C 7.0 09/28/2017 HBA1C 7.4 05/11/2017 CMP: Glucose 179 03/01/2018 BUN 14 03/01/2018 Creatinine 0.84 03/01/2018 Sodium 138 03/01/2018 Potassium 4.1 03/01/2018 Chloride 100 03/01/2018 CO2 23 03/01/2018 Protein, Total 7.2 03/01/2018 Albumin 4.0 03/01/2018 Calcium 8.7 03/01/2018 Alkaline Phosphatase 54 03/01/2018 Bilirubin, Total 0.3 03/01/2018 AST 25 03/01/2018 ALT 21 03/01/2018 Estimated Creatinine Clearance: 111.9 mL/min (based on SCr of 0.84 mg/dL). Last Lipid Panel Lab Results Component Value Date CHOL 113 09/28/2017 Lab Results Component Value Date HDL 31 09/28/2017 Lab Results Component Value Date LDL 59 09/28/2017 Lab Results Component Value Date TG 114 09/28/2017 Albumin/Creat Ratio (mg/g) Date Value 05/11/2017 Not calculated ASSESSMENT/PLAN: 1. Type 2 diabetes mellitus without complication, without long-term current use of insulin (HCC) - ICD9: 250.00, ICD10: E11.9 (primary diagnosis) Controlled. - Continue current medications 2. Generalized osteoarthritis - ICD9: 715.00, ICD10: M15.9 See below. Continue present management. Further evaluation and treatment as indicated. - TRAMADOL 50 MG TABLET 3. Fibromyalgia - ICD9: 729.1, ICD10: M79.7 As above - TRAMADOL 50 MG TABLET 4. Back strain, sequela - ICD9: 905.7, ICD10: S39.012S Continue present management. Further evaluation and treatment as indicated. - OXYCODONE-ACETAMINOPHEN 5 MG-325 MG TABLET 5. Acute midline low back pain without sciatica - ICD9: 724.2, ICD10: M54.5 Lumbosacral sprain - Patient given instructions use of medications as ordered, intermittent rest and weight loss - OXYCODONE-ACETAMINOPHEN 5 MG-325 MG TABLET 6. Pain of left lower leg - ICD9: 729.5, ICD10: M79.662 Continue present management. - OXYCODONE-ACETAMINOPHEN 5 MG-325 MG TABLET Patient is scheduled to see PCP 07/03. Patient to return to clinic for PharmD f/u prn. Patient verbalized understanding of instructions. Dr. Lopez and Licha Moralez, PharmD The patient was seen; chart reviewed and I concur with the above evaluation and plan. PharmD and I discussed with DM SMA group medications for management of DM, HTN and lipids. Also reviewed diet and exercise to help with control of DM. Discussed with each patient individual meds and management of their diabetes issues. Also discussed with group efforts at weight loss with exercise as able and limiting calories. Overall has been able to get weight down compared to years ago. Reviewed Synopsis. Reviewed one on one issues with headaches ([place] not giving 56 pills nadolol)--fixed RX. Also issue with tramadol not having refills. Increased leg pain left since walking more visiting family member at [facility] main campus. PDMP website checked and validated. All prescriptions have been APPROPRIATELY filled. No suspicious activity was identified. 05/30/2018 by MD Terrie Smith MD Referring Provider: SELF [[id number]] Allergies As of Date: 05/17/2018 Noted Allergy Reaction NIA (FEXOFENADINE HCL) 01/25/2006 12 - Shortness of Breath ANCEF (CEFAZOLIN SODIUM) 01/25/2006 4 - Hives CLINDAMYCIN 01/05/2007 6 - Diarrhea duoderm [Other] 05/21/2007 Comments: severe burning pain at point of contact. No redness. ELAVIL (AMITRIPTYLINE) 04/27/2007 Comments: hallucinations MACROBID (NITROFURANTOIN MONOHYD/*05/15/2007 4 - Hives NORVASC (AMLODIPINE) 12/11/2008 7 - Swelling Date Reviewed: 05/17/2018 Reviewed by: Tiffany Martin LPN - Fully Assessed Reason for Visit: SMA-Previsit Assessment [3649] Reason For Visit History Recorded Primary Visit Diagnosis:Type 2 diabetes mellitus without complication, without long-term current use of insulin (HCC) [E11.9] Other Visit Diagnoses:Generalized osteoarthritis [M15.9] Fibromyalgia [M79.7] Back strain, sequela [S39.012S] Acute midline low back pain without sciatica [M54.5] Pain of left lower leg [M79.662] Order(s):nadolol (CORGARD) 80 mg tabletTake 2 tablets by mouth once daily.Disp: 56 tabletRfl: 11 lidocaine (LMX) 4 % creamApply thin layer to affected area three times a day as needed for painDisp: 45 gRfl: 11 [START ON 06/02/2018] traMADol (ULTRAM) 50 mg tabletTake 1-2 tablets by mouth every 6 hours as needed for up to 90 days.Disp: 120 tabletRfl: 2 [] oxyCODONE-acetaminophen (PERCOCET) 5-325 mg tabletTake 1 tablet by mouth three times daily as needed for up to 7 days.Disp: 21 tabletRfl: 0 ondansetron orally disintegrating (ZOFRAN ODT) 4 mg disintegrating tabletTake 1 tablet by mouth every 8 hours as needed for Nausea/Vomiting.Disp: 12 tabletRfl: 2 Prescriptions as of 05/17/2018 Sig: NADOLOL 80 MG TABLET Take 2 tablets by mouth once * LIDOCAINE 4 % TOPICAL CREAM Apply thin layer to affected * TRAMADOL 50 MG TABLET Take 1-2 tablets by mouth nathalie* OXYCODONE-ACETAMINOPHEN 5 MG-* Take 1 tablet by mouth three * ONDANSETRON 4 MG DISINTEGRATI* Take 1 tablet by mouth every * OMEPRAZOLE 20 MG CAPSULE,MELINDA* TAKE 1 CAPSULE BY MOUTH DAILY PROMETHAZINE 25 MG TABLET Take 1 tablet by mouth every * BUSPIRONE 5 MG TABLET Take 15 mg by mouth twice josé* X MUPIROCIN 2 % TOPICAL OINTMENT apply to affected area once d* FLUCONAZOLE 150 MG TABLET 1 tablet today and repeat in * OXYBUTYNIN CHLORIDE ER 15 MG * TAKE 1 TABLET BY MOUTH ONCE D* LISINOPRIL 5 MG TABLET Take 1 tablet by mouth once d* ORPHENADRINE CITRATE ER 100 M* Take 1 tablet by mouth twice * DICYCLOMINE 20 MG TABLET Take 1 tablet by mouth three * VALACYCLOVIR 500 MG TABLET Take 1 tablet by mouth once d* DIVALPROEX ER 500 MG TABLET,E* take 1 tablet by mouth daily GUAIFENESIN ER 600 MG TABLET,* Take 2 tablets by mouth twice* BENZONATATE 200 MG CAPSULE Take 1 capsule by mouth three* OMEPRAZOLE MAGNESIUM 20 MG TA* Take 1 tablet by mouth daily * GABAPENTIN 600 MG TABLET TAKE 2 TABLETS THREE TIMES A * HYDROCORTISONE 2.5 % TOPICAL * 1 application by RECTAL route* BLOOD SUGAR DIAGNOSTIC STRIPS Test blood sugar(s) 3 times d* GLIMEPIRIDE 2 MG TABLET Take 2 tablets by mouth twice* LANCETS Test blood sugar(s) 3 times d* BENZOCAINE-MENTHOL 15 MG-2.6 * Take 1 Lozenge by mouth every* DIAZEPAM 5 MG TABLET Take 10 mg by mouth once kala* TRIAMCINOLONE ACETONIDE 0.1 %* Apply 1 application to affect* MOMETASONE-FORMOTEROL HFA 100* Inhale 2 Puffs as instructed * ALBUTEROL SULFATE HFA 90 MCG/* Inhale 2 Puffs as instructed * FLUTICASONE 50 MCG/ACTUATION * Use 2 Sprays in each nostril * BLOOD SUGAR DIAGNOSTIC STRIPS Test blood sugar(s) 3 times d* CPAP Initiate CPAP @ 14 cm of wate* COMPOUNDED PRESCRIPTION Nebulizer for home use. Diagn* QUETIAPINE 300 MG TABLET Take 1 tablet by mouth daily * Patient taking differently: Take 300 mg by mouth daily at* Problem List As Of Date 05/17/2018 Noted Resolved ESOPHAGEAL REFLUX [K21.9] More... Unspecified asthma(493.90) [J45.909] 06/02/2017 More... 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 Unspecified vitamin D deficiency [E55.9] INVALID FOR*02/27/2013 GENITAL HERPES NEC [A60.00] INVALID FOR* URGE AND STRESS MIXED INCONTINENCE [N39.46] INVALID FOR* LACERATION -NOT COMPLICATED BREAST [S21.009A] INVALID FOR*02/27/2013 Diabetes (HCC) [E11.9] INVALID FOR* Enthesopathy of unspecified site [M77.9] INVALID FOR*02/27/2013 Adenopathy, Hilar [R59.0] INVALID FOR* Major depressive disorder, recurrent episode (H*INVALID FOR* Abnormal mammogram, unspecified [R92.8] INVALID FOR*06/02/2017 Wound, open, breast [S21.009A] INVALID FOR*02/27/2013 Benign neoplasm of skin of lower limb, includin*INVALID FOR*02/27/2013 Umbilical hernia without mention of obstruction*INVALID FOR*06/02/2017 Ventral hernia, unspecified, without mention of*INVALID FOR*06/02/2017 Anxiety [F41.9] INVALID FOR* Vitamin d deficiency [E55.9] INVALID FOR* Urge incontinence of urine [N39.41] INVALID FOR*06/02/2017 Pain of left lower leg [M79.662] INVALID FOR* Carpal tunnel syndrome of right wrist [G56.01] INVALID FOR*06/02/2017 Morbid obesity with BMI of 45.0-49.9, adult (HC* ABRAM (obstructive sleep apnea) [G47.33] INVALID FOR* More... Left carpal tunnel syndrome [G56.02] INVALID FOR*06/02/2017 Asthma with COPD with exacerbation (HCC) [J44.1*INVALID FOR* HTN (hypertension) [I10] INVALID FOR* Ganglion cyst of finger of right hand [M67.441] INVALID FOR* More... Prescriptions ordered this encounter Disp Refills Start End NADOLOL 80 MG TABLET 56 t* 11 05/17/2018 Cmt: Takes 2 every day--give 56 pills so will not keep running out of pills (not prior RX was supposed to be 56 pills) Route: ORAL Sig: Take 2 tablets by mouth once daily. LIDOCAINE 4 % TOPICAL CREAM 45 g 11 05/17/2018 Cmt: If 45 gram not available, give 30 gram tube Sig: Apply thin layer to affected area three times a day as needed for pain TRAMADOL 50 MG TABLET 120 * 2 06/02/2018 08/31/2018 Class: Print RX Cmt: Each RX of 120 pills is for 30 day supply; this RX with 2 RF should last 90 days.[facility] has correct info that filled for 30 days supply with 2 RF but her bottle says no refills. Route: ORAL Sig: Take 1-2 tablets by mouth every 6 hours as needed for up to 90 days. OXYCODONE-ACETAMINOPHEN 5 MG-325 MG * 21 t* 0 05/17/2018 05/24/2018 Class: Print RX Cmt: Acute flare up of leg pain Route: ORAL Sig: Take 1 tablet by mouth three times daily as needed for up to 7 days. ONDANSETRON 4 MG DISINTEGRATING TABL* 12 t* 2 05/17/2018 Route: ORAL Sig: Take 1 tablet by mouth every 8 hours as needed for Nausea/Vomiting. Medications Discontinued During This Encounter nadolol (CORGARD) 80 mg tablet 56 t* 5 03/01/2018 05/17/2018 Route: ORAL Sig: Take 1-2 tablets by mouth once daily. As directed for high blood pressure and migraines Disc: Reason for discontinue is not on file. lidocaine (LMX) 4 % cream 30 g 1 03/26/2018 05/17/2018 Sig: Apply thin layer to affected area three times a day as needed for pain Disc: Reason for discontinue is not on file. traMADol (ULTRAM) 50 mg tablet 120 * 2 04/02/2018 05/17/2018 Class: Print RX Cmt: 120 pills per 30 days, with 2 RF lasts 90 days Route: ORAL Sig: Take 1-2 tablets by mouth every 6 hours as needed for up to 90 days. Disc: Reason for discontinue is not on file. oxyCODONE-acetaminophen (PERCOCET) 5* 21 t* 0 03/26/2018 05/17/2018 Class: Print RX Route: ORAL Sig: Take 1 tablet by mouth three times daily as needed for up to 7 days. Disc: Reason for discontinue is not on file. Disposition: Return in about 3 months (around 08/17/2018) for Add DM SMA in 3 months. Follow-up and Disposition History Recorded Encounter Status:Closed by TERRIE LOPEZ MD on 05/30/18 EMERGENCY DEPARTMENT Observed: 05/10/2018 Status: F Source: [place] SUMMARY 11:44 PM [facility] REPOSITORY [facility] Medical Records Department [address] [place] [address] Emergency Department Summary 04/17/18 2104 MR#: [id number] Acct: [id number] Name: EDEL LANG Rep #: [id number] : [id number] 52 From: Rob Bey DO PCP: Terrie Lopez MD Status: DEP ER ADDENDUM by Rob Bey DO on 05/10/18 at 2344 The third diagnosis should read subdural hematoma Date Rob Bey DO cc: Terrie Lopez MD * Signed - ER Visit Summary Date of Service: 04/17/18 Chief Complaint: Head injury History of Present Illness: The patient is a 52 F who states that yesterday she hit the left frontal aspect of her head on the car door. No loss of consciousness. Patient states she continues to have headache and double vision. She states that at times she has felt confused. She is not on any blood thinners. There is been no vomiting. Physical Examination: Afebrile vital signs are stable Gen: Well-nourished well-developed Head: Normocephalic infraorbital contusion noted on the left Eyes: Perrl EOMI ENT: TMs clear no rhinorrhea moist mucous membranes Neck: Supple no lymphadenopathy no JVD nontender CVS: Regular rate rhythm no murmurs normal S1-S2 Respiratory: No distress clear to auscultation bilaterally chest nontender Abdomen: Soft nontender nondistended normal bowel sounds no masses Back: Nontender Extremity: Nontender no edema Skin: Normal color no rash Neuro: alert orientated 3 CN II-XII intact normal strength sensation reflexes gait cerebellar Psych: Normal affect normal mood Test Results: Coags normal. CT the head demonstrated a possible left temporal subdural versus artifact. Emergency Department Course and Treatment: Patient tells me she has had an MRI before. MRI is available to do 1. They took her to MRI and the patient was unable to tolerate the MRI due to claustrophobia. Patient requests transfer to [facility] as she does not wish to go to [facility]. I spoke with the emergency room there and they will evaluate the patient when she gets there. Impression: 1. Concussion 2. Periorbital contusion 3. Possible subdural hematoma This note was generated with [employer] dictation software. It may contain incorrect words, spelling, and punctuation that were not noted in review of the chart prior to signing ED Disposition - Plan for ED Patient: Chief Complaint: Head Injury Referrals: Terrie Lopez MD [Primary Care Provider] - What to do if you have Problems For any increased pain, shortness of breath, bleeding, nausea or vomiting, chest pain, or any unexpected problems, contact your Primary Care Provider. Call [facility] ([phone]) or report to the closest Emergency Room. Call 911 if necessary. 04/18/18 0020 <Electronically signed by Rob Bey DO> Date Rob Bey DO Cosigner Signature (If Indicated): Date CC: Terrie Lopez MD PROGRESS Observed: 04/27/2018 Status: COMPLETED Source: [place] 2:24 PM [facility] REPOSITORY HNO ID: [id number] Author: Hansa (Cherie) [employer]log[employer] Service: (none) Author Type: Nurse Practitioner Type: Progress Notes Filed: 04/27/2018 3:55 PM Note Text: 04/27/2018 Patient presents with: Dizziness: PT STATES NOT SLEEPING, CONSTANYT HEADACHE EVEN WITH MEDS SUBJECTIVE: This is a 52 year old that is here today for Above Complaints. Seen on 04/20/2018 by Rene Brothers CNP for hospital follow-up for concussion that occurred on 04/16/2018, when she hit the side of her face with a car door. See office note. Since then she has been struggling with headaches and having difficulty sleeping because of them. Taking her norflex, nadolol, and depakotel as scheduled for migraine prophylaxis. She reports these are not migraines.Described as a throbbing across forehead. No OTC medications tried- using ice which helps some. Denies visual disturbances, slurred speech, confusion, extremity numbness, tingling, weakness, falls, syncope Presyncope, or seizure activity. Positive for light sensitivity, lightheadedness, and nausea. Went back to work three days after incident. 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 Is trying to limit screen time as best as possible. How do you feel (right now)? none=0, mild=1-2, moderate=3-4, severe=5-6 ? Headache 3 ? Pressure in head 3 ? Neck Pain 0 ? Nausea or vomitting 4 ? Dizziness 4 ? Blurred Vision 1 ? Balance Problems 1 ? Sensitivity to light 3 ? Sensitivity to Noise 1 ? Feeling slowed down 3 ? Feeling like in a fog 3 ? Don't feel right 4 ? Difficulty concentrating 4 ? Difficulty remembering 2 ? Fatigue or low energy 4 ? Confusion 2 ? Drowsiness 1 ? Trouble falling asleep 6 ? More emotional 3 ? Irritability 4 ? Sadness 2 ? Nervous or Anxious 2 ? Do the symptoms get worse with physical activity? Yes ? Do the symptoms get worse with mental activity? Yes ? Symptom evaluation completed as self rated ? Overall rating: If you know the patient well prior to the injury, how different is she acting compared to her usual self? no difference Standardized Assessment of Concussion Orientation (1 point for each correct answer) ? What month is it? 1 ? What is the date today? 1 ? What is the day of the week? 1 ? What year is it? 1 ? What time is it right now? (within 1 hour) 1 Orientation Score 5 of 5 ? How many concussions has Edel had in the past? 3 ? When was the most recent concussion? 20+ years ? How long was the recovery from the most recent concussion? 2-3 weeks ? Has Edel ever been hospitalized or had medical imaging done (CT or MRI) for a head injury? yes ? Has Edel ever been diagnosed with headaches or migraines? yes ? Does Edel have a learning disability, dyslexia, ADD/ADHD or seizure disorder? yes, no ? Has Edel ever been diagnosed with depression, anxiety or other psychiatric disorder? yes ? Has anyone in the family ever been diagnosed with any of these problems? yes in mother and father PAST MEDICAL HISTORY Diagnosis Date - FIBROMYALGIA - Cellulitis and abscess of unspecified site 11/26 right leg - Depressive disorder, not elsewhere classified - Dysmetabolic syndrome X 08/09/2006 - Esophageal reflux Gastroesophageal reflux - Generalized anxiety disorder - Hx of cystoscopy 09/11/2017 - Localized osteoarthrosis not specified whether primary or secondary, other specified sites bilateral knees - Morbid obesity with BMI of 50.0-59.9, adult (HCC) - Other genital herpes 08/09/2006 - Type II or unspecified type diabetes mellitus without mention of complication, not stated as uncontrolled - Unspecified asthma(493.90) - Unspecified essential hypertension Essential hypertension - Whooping cough, unspecified organism 11/26 ALLERGIES Nia [Fexofenadine Hcl]; Ancef [Cefazolin Sodium]; Clindamycin; Duoderm [Other]; Elavil [Amitriptyline]; Macrobid [Nitrofurantoin Monohyd/M-Cryst]; Norvasc [Amlodipine] MEDICATIONS Current Outpatient Prescriptions: busPIRone (BUSPAR) 5 mg tablet Take 15 mg by mouth twice daily. Dose needs clarified with patients pharmacy. mupirocin (BACTROBAN) 2 % ointment apply to affected area once daily fluconazole (DIFLUCAN) 150 mg tablet 1 tablet today and repeat in 72 hours lidocaine (LMX) 4 % cream Apply thin layer to affected area three times a day as needed for pain traMADol (ULTRAM) 50 mg tablet Take 1-2 tablets by mouth every 6 hours as needed for up to 90 days. oxybutynin ER (DITROPAN XL) 15 mg 24 hr Extended Rel Tab TAKE 1 TABLET BY MOUTH ONCE DAILY. ondansetron orally disintegrating (ZOFRAN ODT) 4 mg disintegrating tablet Take 1 tablet by mouth every 8 hours as needed for Nausea/Vomiting. lisinopril (ZESTRIL, PRINIVIL) 5 mg tablet Take 1 tablet by mouth once daily. orphenadrine ER (NORFLEX) 100 mg tablet Take 1 tablet by mouth twice daily as needed for Muscle Spasm. dicyclomine (BENTYL) 20 mg tablet Take 1 tablet by mouth three times daily. nadolol (CORGARD) 80 mg tablet Take 1-2 tablets by mouth once daily. As directed for high blood pressure and migraines valACYclovir (VALTREX) 500 mg tablet Take 1 tablet by mouth once daily. divalproex ER (DEPAKOTE ER) 500 mg 24 hr tablet take 1 tablet by mouth daily guaiFENesin (MUCINEX) 600 mg 12 hr tablet Take 2 tablets by mouth twice daily as needed. Benzonatate 200 mg capsule Take 1 capsule by mouth three times daily as needed. Omeprazole Magnesium (PRILOSEC OTC) 20 mg tablet Take 1 tablet by mouth daily before breakfast. 1/2 hr before meal. gabapentin (NEURONTIN) 600 mg tablet TAKE 2 TABLETS THREE TIMES A DAY hydrocortisone (ANUSOL-HC) 2.5 % rectal cream 1 application by RECTAL route twice daily. As directed blood sugar diagnostic (BLOOD GLUCOSE TEST) test strip Test blood sugar(s) 3 times daily. Dx: Type 2 DM - Uncontrolled E11.65 Insulin: No glimepiride (AMARYL) 2 mg tablet Take 2 tablets by mouth twice daily with meals. As directed Lancets lancets Test blood sugar(s) 3 times daily. Dx: Type 2 DM - Uncontrolled E11.65 Insulin: No benzocaine-menthol (CEPACOL) 15-2.6 mg lozg lozenge Take 1 Lozenge by mouth every 3 hours as needed. diazePAM (VALIUM) 5 mg tablet Take 10 mg by mouth once daily as needed for Anxiety. triamcinolone acetonide (KENALOG) 0.1 % cream Apply 1 application to affected area twice daily. For itchy lesions for 2 weeks (torso or extremities) as directed mometasone-formoterol (DULERA) 100-5 mcg/actuation inhaler Inhale 2 Puffs as instructed twice daily. albuterol HFA (VENTOLIN HFA) 90 mcg/actuation inhaler Inhale 2 Puffs as instructed every 4 hours as needed for Wheezing/Shortness of Breath. fluticasone (FLONASE) 50 mcg/actuation nasal spray Use 2 Sprays in each nostril once daily. blood sugar diagnostic (FREESTYLE LITE STRIPS) test strip Test blood sugar(s) 3 times daily. Dx: Type 2 DM - Controlled E11.9 Insulin: Yes CPAP Initiate CPAP @ 14 cm of water with humidification. EPR setting of 3. Mask (per patient preference) optional chin strap (if indicated) , filters, tubing, humidifier and lifetime supplies. COMPOUNDED PRESCRIPTION Nebulizer for home use. Diagnosis: Asthma exacerbation QUEtiapine (SEROQUEL) 300 mg tablet Take 1 tablet by mouth daily at bedtime. Also takes [address] Patterson. (Patient taking differently: Take 300 mg by mouth daily at bedtime. ) No current facility-administered medications for this visit. Medications and allergies reviewed by this provider. 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 General: Well developed, No acute distress, Obese Head: normocephalic Eyes: conjunctivae/corneas clear, positive findings: resolving ecchymosis under left eye Ears: normal external ear and canal, tympanic membranes with normal landmarks Nose: no erythema or exudate Oropharynx: moist mucous membranes, palate intact Neck: Supple, no adenopathy; thyroid symmetric, normal size, no bruits Resp: lungs clear to auscultation Heart: RRR , Normal S1 and S2. , No murmurs NEUROLOGICAL EXAM: Edel is alert and oriented times three Speech is Speech fluent and appropriate Cranial Nerves: Pupils are equal and reactive to light. Extraocular movements grossly intact Visual hester are full to confrontation. Facial, motor and sensory exam is symmetric Tongue is in midline Motor Exam: Upper extremity motor exam is 5/5 in deltoid, 5/5 biceps, 5/5 wrist extension, and 5/5 hand wharf hand. Lower extremity is 5/5 in IP, 5/5 quadriceps, 5/5 hamstrings, 5/5 EHL, 5/5 TA and 5/5 gastrocnemius Edel is without significant pronator drift. Sensation is intact to light touch and deep pain Reflexes of 1/2 triceps, 1/2 biceps, 1/2 knee jerk, 1/2 ankle jerk and symmetric, toes are Downgoing. Coordination is Finger-to- nose-finger and [id number] intact bilaterally. Gait normal station and stride. Romberg's sign negative ASSESSMENT/PLAN: 1. Headache, unspecified headache type - ICD9: 784.0, ICD10: R51 (primary diagnosis) - likely post- concussive vs stress - no red flag exam finding - red flag symptoms discussed, patient verbalizes understanding - ibuprofen 600-800 mg every 6-8 hours as needed for headaches - ice to forehead - handout on concussions provided with re-enforcement about brain rest - follow-up with persisting or worsening symptoms, to ER with discussed red flag symtpoms 2. Nausea - ICD9: 787.02, ICD10: R11.0 - stop Zofran - phenergan 25 mg every 8 hours as needed for nausea -Plan as above 3. Concussion without loss of consciousness, subsequent encounter - ICD9: V58.89, 850.0, ICD10: S06.0X0D - Discussed concussion, its usual course, progression and resolution - Discussed modifications for school or work and letter/handout provided - if symptoms persist refer to concussion clinc Hansa Gambino APRN.CNP Prescription instructions reviewed with patient as applicable. Patient advised if symptoms do not improve or if symptoms worsen sooner, to contact their primary care physician. Potential red flag symptoms discussed with the patient. Reviewed appropriate action plan to take if red flag symptoms occur. Patient agreeable to treatment plan. CNOV Observed: 04/27/2018 Status: COMPLETED Source: [place] 2:20 PM [facility] REPOSITORY Office Visit (FAMPWS) EDEL LANG ([id number]) 1965 F Date Time Provider Department 04/27/18 2:20 PM HANSA [facility]AMBIN[facility]CHERIE[facility] During your visit today, we recorded the following information about you: Pulse Respiration Blood pressure Weight 64/minute 18/minute 130/74 146.1 kg Hansa Gambino APRN.CNP 04/27/2018 3:55 PM Signed 04/27/2018 Patient presents with: Dizziness: PT STATES NOT SLEEPING, CONSTANYT HEADACHE EVEN WITH MEDS SUBJECTIVE: This is a 52 year old that is here today for Above Complaints. Seen on 04/20/2018 by Rene Brothers CNP for hospital follow-up for concussion that occurred on 04/16/2018, when she hit the side of her face with a car door. See office note. Since then she has been struggling with headaches and having difficulty sleeping because of them. Taking her norflex, nadolol, and depakotel as scheduled for migraine prophylaxis. She reports these are not migraines.Described as a throbbing across forehead. No OTC medications tried- using ice which helps some. Denies visual disturbances, slurred speech, confusion, extremity numbness, tingling, weakness, falls, syncope Presyncope, or seizure activity. Positive for light sensitivity, lightheadedness, and nausea. Went back to work three days after incident. 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 Is trying to limit screen time as best as possible. How do you feel (right now)? none=0, mild=1-2, moderate=3-4, severe=5-6 ? Headache 3 ? Pressure in head 3 ? Neck Pain 0 ? Nausea or vomitting 4 ? Dizziness 4 ? Blurred Vision 1 ? Balance Problems 1 ? Sensitivity to light 3 ? Sensitivity to Noise 1 ? Feeling slowed down 3 ? Feeling like in a fog 3 ? Don't feel right 4 ? Difficulty concentrating 4 ? Difficulty remembering 2 ? Fatigue or low energy 4 ? Confusion 2 ? Drowsiness 1 ? Trouble falling asleep 6 ? More emotional 3 ? Irritability 4 ? Sadness 2 ? Nervous or Anxious 2 ? Do the symptoms get worse with physical activity? Yes ? Do the symptoms get worse with mental activity? Yes ? Symptom evaluation completed as self rated ? Overall rating: If you know the patient well prior to the injury, how different is she acting compared to her usual self? no difference Standardized Assessment of Concussion Orientation (1 point for each correct answer) ? What month is it? 1 ? What is the date today? 1 ? What is the day of the week? 1 ? What year is it? 1 ? What time is it right now? (within 1 hour) 1 Orientation Score 5 of 5 ? How many concussions has Edel had in the past? 3 ? When was the most recent concussion? 20+ years ? How long was the recovery from the most recent concussion? 2-3 weeks ? Has Edel ever been hospitalized or had medical imaging done (CT or MRI) for a head injury? yes ? Has Edel ever been diagnosed with headaches or migraines? yes ? Does Edel have a learning disability, dyslexia, ADD/ADHD or seizure disorder? yes, no ? Has Edel ever been diagnosed with depression, anxiety or other psychiatric disorder? yes ? Has anyone in the family ever been diagnosed with any of these problems? yes in mother and father PAST MEDICAL HISTORY Diagnosis Date - FIBROMYALGIA - Cellulitis and abscess of unspecified site 11/26 right leg - Depressive disorder, not elsewhere classified - Dysmetabolic syndrome X 08/09/2006 - Esophageal reflux Gastroesophageal reflux - Generalized anxiety disorder - Hx of cystoscopy 09/11/2017 - Localized osteoarthrosis not specified whether primary or secondary, other specified sites bilateral knees - Morbid obesity with BMI of 50.0-59.9, adult (HCC) - Other genital herpes 08/09/2006 - Type II or unspecified type diabetes mellitus without mention of complication, not stated as uncontrolled - Unspecified asthma(493.90) - Unspecified essential hypertension Essential hypertension - Whooping cough, unspecified organism 11/26 ALLERGIES Nia [Fexofenadine Hcl]; Ancef [Cefazolin Sodium]; Clindamycin; Duoderm [Other]; Elavil [Amitriptyline]; Macrobid [Nitrofurantoin Monohyd/M-Cryst]; Norvasc [Amlodipine] MEDICATIONS Current Outpatient Prescriptions: busPIRone (BUSPAR) 5 mg tablet Take 15 mg by mouth twice daily. Dose needs clarified with patients pharmacy. mupirocin (BACTROBAN) 2 % ointment apply to affected area once daily fluconazole (DIFLUCAN) 150 mg tablet 1 tablet today and repeat in 72 hours lidocaine (LMX) 4 % cream Apply thin layer to affected area three times a day as needed for pain traMADol (ULTRAM) 50 mg tablet Take 1-2 tablets by mouth every 6 hours as needed for up to 90 days. oxybutynin ER (DITROPAN XL) 15 mg 24 hr Extended Rel Tab TAKE 1 TABLET BY MOUTH ONCE DAILY. ondansetron orally disintegrating (ZOFRAN ODT) 4 mg disintegrating tablet Take 1 tablet by mouth every 8 hours as needed for Nausea/Vomiting. lisinopril (ZESTRIL, PRINIVIL) 5 mg tablet Take 1 tablet by mouth once daily. orphenadrine ER (NORFLEX) 100 mg tablet Take 1 tablet by mouth twice daily as needed for Muscle Spasm. dicyclomine (BENTYL) 20 mg tablet Take 1 tablet by mouth three times daily. nadolol (CORGARD) 80 mg tablet Take 1-2 tablets by mouth once daily. As directed for high blood pressure and migraines valACYclovir (VALTREX) 500 mg tablet Take 1 tablet by mouth once daily. divalproex ER (DEPAKOTE ER) 500 mg 24 hr tablet take 1 tablet by mouth daily guaiFENesin (MUCINEX) 600 mg 12 hr tablet Take 2 tablets by mouth twice daily as needed. Benzonatate 200 mg capsule Take 1 capsule by mouth three times daily as needed. Omeprazole Magnesium (PRILOSEC OTC) 20 mg tablet Take 1 tablet by mouth daily before breakfast. 1/2 hr before meal. gabapentin (NEURONTIN) 600 mg tablet TAKE 2 TABLETS THREE TIMES A DAY hydrocortisone (ANUSOL-HC) 2.5 % rectal cream 1 application by RECTAL route twice daily. As directed blood sugar diagnostic (BLOOD GLUCOSE TEST) test strip Test blood sugar(s) 3 times daily. Dx: Type 2 DM - Uncontrolled E11.65 Insulin: No glimepiride (AMARYL) 2 mg tablet Take 2 tablets by mouth twice daily with meals. As directed Lancets lancets Test blood sugar(s) 3 times daily. Dx: Type 2 DM - Uncontrolled E11.65 Insulin: No benzocaine-menthol (CEPACOL) 15-2.6 mg lozg lozenge Take 1 Lozenge by mouth every 3 hours as needed. diazePAM (VALIUM) 5 mg tablet Take 10 mg by mouth once daily as needed for Anxiety. triamcinolone acetonide (KENALOG) 0.1 % cream Apply 1 application to affected area twice daily. For itchy lesions for 2 weeks (torso or extremities) as directed mometasone-formoterol (DULERA) 100-5 mcg/actuation inhaler Inhale 2 Puffs as instructed twice daily. albuterol HFA (VENTOLIN HFA) 90 mcg/actuation inhaler Inhale 2 Puffs as instructed every 4 hours as needed for Wheezing/Shortness of Breath. fluticasone (FLONASE) 50 mcg/actuation nasal spray Use 2 Sprays in each nostril once daily. blood sugar diagnostic (FREESTYLE LITE STRIPS) test strip Test blood sugar(s) 3 times daily. Dx: Type 2 DM - Controlled E11.9 Insulin: Yes CPAP Initiate CPAP @ 14 cm of water with humidification. EPR setting of 3. Mask (per patient preference) optional chin strap (if indicated) , filters, tubing, humidifier and lifetime supplies. COMPOUNDED PRESCRIPTION Nebulizer for home use. Diagnosis: Asthma exacerbation QUEtiapine (SEROQUEL) 300 mg tablet Take 1 tablet by mouth daily at bedtime. Also takes [address] Patterson. (Patient taking differently: Take 300 mg by mouth daily at bedtime. ) No current facility-administered medications for this visit. Medications and allergies reviewed by this provider. 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 General: Well developed, No acute distress, Obese Head: normocephalic Eyes: conjunctivae/corneas clear, positive findings: resolving ecchymosis under left eye Ears: normal external ear and canal, tympanic membranes with normal landmarks Nose: no erythema or exudate Oropharynx: moist mucous membranes, palate intact Neck: Supple, no adenopathy; thyroid symmetric, normal size, no bruits Resp: lungs clear to auscultation Heart: RRR , Normal S1 and S2. , No murmurs NEUROLOGICAL EXAM: Edel is alert and oriented times three Speech is Speech fluent and appropriate Cranial Nerves: Pupils are equal and reactive to light. Extraocular movements grossly intact Visual hester are full to confrontation. Facial, motor and sensory exam is symmetric Tongue is in midline Motor Exam: Upper extremity motor exam is 5/5 in deltoid, 5/5 biceps, 5/5 wrist extension, and 5/5 hand wharf hand. Lower extremity is 5/5 in IP, 5/5 quadriceps, 5/5 hamstrings, 5/5 EHL, 5/5 TA and 5/5 gastrocnemius Edel is without significant pronator drift. Sensation is intact to light touch and deep pain Reflexes of 1/2 triceps, 1/2 biceps, 1/2 knee jerk, 1/2 ankle jerk and symmetric, toes are Downgoing. Coordination is Finger-to- nose-finger and [id number] intact bilaterally. Gait normal station and stride. Romberg's sign negative ASSESSMENT/PLAN: 1. Headache, unspecified headache type - ICD9: 784.0, ICD10: R51 (primary diagnosis) - likely post- concussive vs stress - no red flag exam finding - red flag symptoms discussed, patient verbalizes understanding - ibuprofen 600-800 mg every 6-8 hours as needed for headaches - ice to forehead - handout on concussions provided with re-enforcement about brain rest - follow-up with persisting or worsening symptoms, to ER with discussed red flag symtpoms 2. Nausea - ICD9: 787.02, ICD10: R11.0 - stop Zofran - phenergan 25 mg every 8 hours as needed for nausea -Plan as above 3. Concussion without loss of consciousness, subsequent encounter - ICD9: V58.89, 850.0, ICD10: S06.0X0D - Discussed concussion, its usual course, progression and resolution - Discussed modifications for school or work and letter/handout provided - if symptoms persist refer to concussion clinc Hansa Podlogar, INDUSTRIAL MANAGEMENT TEACHER.CATH LAB RADIOLOGICAL TECHNOLOGIST Prescription instructions reviewed with patient as applicable. Patient advised if symptoms do not improve or if symptoms worsen sooner, to contact their primary care physician. Potential red flag symptoms discussed with the patient. Reviewed appropriate action plan to take if red flag symptoms occur. Patient agreeable to treatment plan. Hansa Podlogar, PREMA 04/27/2018 2:49 PM Addendum If you develop worsening headaches, uncontrolled nausea/vomiting, change in speech, visual changes, confusion, extremity weakness, numbness or tingling Continue brain rest- limiting screen time- introduce reading, computers slowly if symtpoms start coming back go back and kellen away added stimulation Do not drive or operate heavy machinery while taking phenergan Referring Provider: SELF [[id number]] Allergies As of Date: 04/27/2018 Noted Allergy Reaction NIA (FEXOFENADINE HCL) 01/25/2006 12 - Shortness of Breath ANCEF (CEFAZOLIN SODIUM) 01/25/2006 4 - Hives CLINDAMYCIN 01/05/2007 6 - Diarrhea duoderm [Other] 05/21/2007 Comments: severe burning pain at point of contact. No redness. ELAVIL (AMITRIPTYLINE) 04/27/2007 Comments: hallucinations MACROBID (NITROFURANTOIN MONOHYD/*05/15/2007 4 - Hives NORVASC (AMLODIPINE) 12/11/2008 7 - Swelling Date Reviewed: 04/20/2018 Reviewed by: Penny Hooker Commercial Account Manager - Fully Assessed Reason for Visit: Dizziness [36] Cmt: PT STATES NOT SLEEPING, CONSTANYT HEADACHE EVEN WITH MEDS Primary Visit Diagnosis:Headache, unspecified headache type [R51] Other Visit Diagnoses:Nausea [R11.0] Concussion without loss of consciousness, subsequent encounter [S06.0X0D] Order(s):promethazine (PHENERGAN) 25 mg tabletTake 1 tablet by mouth every 6 hours as needed.Disp: 20 tabletRfl: 0 Prescriptions as of 04/27/2018 Sig: BUSPIRONE 5 MG TABLET Take 15 mg by mouth twice josé* MUPIROCIN 2 % TOPICAL OINTMENT apply to affected area once d* FLUCONAZOLE 150 MG TABLET 1 tablet today and repeat in * LIDOCAINE 4 % TOPICAL CREAM Apply thin layer to affected * TRAMADOL 50 MG TABLET Take 1-2 tablets by mouth nathalie* OXYBUTYNIN CHLORIDE ER 15 MG * TAKE 1 TABLET BY MOUTH ONCE D* LISINOPRIL 5 MG TABLET Take 1 tablet by mouth once d* ORPHENADRINE CITRATE ER 100 M* Take 1 tablet by mouth twice * DICYCLOMINE 20 MG TABLET Take 1 tablet by mouth three * NADOLOL 80 MG TABLET Take 1-2 tablets by mouth onc* VALACYCLOVIR 500 MG TABLET Take 1 tablet by mouth once d* DIVALPROEX ER 500 MG TABLET,E* take 1 tablet by mouth daily GUAIFENESIN ER 600 MG TABLET,* Take 2 tablets by mouth twice* BENZONATATE 200 MG CAPSULE Take 1 capsule by mouth three* OMEPRAZOLE MAGNESIUM 20 MG TA* Take 1 tablet by mouth daily * GABAPENTIN 600 MG TABLET TAKE 2 TABLETS THREE TIMES A * HYDROCORTISONE 2.5 % TOPICAL * 1 application by RECTAL route* BLOOD SUGAR DIAGNOSTIC STRIPS Test blood sugar(s) 3 times d* GLIMEPIRIDE 2 MG TABLET Take 2 tablets by mouth twice* LANCETS Test blood sugar(s) 3 times d* BENZOCAINE-MENTHOL 15 MG-2.6 * Take 1 Lozenge by mouth every* DIAZEPAM 5 MG TABLET Take 10 mg by mouth once kala* TRIAMCINOLONE ACETONIDE 0.1 %* Apply 1 application to affect* MOMETASONE-FORMOTEROL HFA 100* Inhale 2 Puffs as instructed * ALBUTEROL SULFATE HFA 90 MCG/* Inhale 2 Puffs as instructed * FLUTICASONE 50 MCG/ACTUATION * Use 2 Sprays in each nostril * BLOOD SUGAR DIAGNOSTIC STRIPS Test blood sugar(s) 3 times d* CPAP Initiate CPAP @ 14 cm of wate* COMPOUNDED PRESCRIPTION Nebulizer for home use. Diagn* QUETIAPINE 300 MG TABLET Take 1 tablet by mouth daily * Patient taking differently: Take 300 mg by mouth daily at* PROMETHAZINE 25 MG TABLET Take 1 tablet by mouth every * Problem List As Of Date 04/27/2018 Noted Resolved ESOPHAGEAL REFLUX [K21.9] More... Unspecified asthma(493.90) [J45.909] 06/02/2017 More... 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 Unspecified vitamin D deficiency [E55.9] INVALID FOR*02/27/2013 GENITAL HERPES NEC [A60.00] INVALID FOR* URGE AND STRESS MIXED INCONTINENCE [N39.46] INVALID FOR* LACERATION -NOT COMPLICATED BREAST [S21.009A] INVALID FOR*02/27/2013 Diabetes (HCC) [E11.9] INVALID FOR* Enthesopathy of unspecified site [M77.9] INVALID FOR*02/27/2013 Adenopathy, Hilar [R59.0] INVALID FOR* Major depressive disorder, recurrent episode (H*INVALID FOR* Abnormal mammogram, unspecified [R92.8] INVALID FOR*06/02/2017 Wound, open, breast [S21.009A] INVALID FOR*02/27/2013 Benign neoplasm of skin of lower limb, includin*INVALID FOR*02/27/2013 Umbilical hernia without mention of obstruction*INVALID FOR*06/02/2017 Ventral hernia, unspecified, without mention of*INVALID FOR*06/02/2017 Anxiety [F41.9] INVALID FOR* Vitamin d deficiency [E55.9] INVALID FOR* Urge incontinence of urine [N39.41] INVALID FOR*06/02/2017 Pain of left lower leg [M79.662] INVALID FOR* Carpal tunnel syndrome of right wrist [G56.01] INVALID FOR*06/02/2017 Morbid obesity with BMI of 45.0-49.9, adult (HC* ABRAM (obstructive sleep apnea) [G47.33] INVALID FOR* More... Left carpal tunnel syndrome [G56.02] INVALID FOR*06/02/2017 Asthma with COPD with exacerbation (HCC) [J44.1*INVALID FOR* HTN (hypertension) [I10] INVALID FOR* Ganglion cyst of finger of right hand [M67.441] INVALID FOR* More... Other instructions from your clinician: If you develop worsening headaches, uncontrolled nausea/vomiting, change in speech, visual changes, confusion, extremity weakness, numbness or tingling Continue brain rest- limiting screen time- introduce reading, computers slowly if symtpoms start coming back go back and kellen away added stimulation Do not drive or operate heavy machinery while taking phenergan Prescriptions ordered this encounter Disp Refills Start End PROMETHAZINE 25 MG TABLET 20 t* 0 04/27/2018 Route: ORAL Sig: Take 1 tablet by mouth every 6 hours as needed. Medications Discontinued During This Encounter ondansetron orally disintegrating (Z* 12 t* 2 03/06/2018 04/27/2018 Route: ORAL Sig: Take 1 tablet by mouth every 8 hours as needed for Nausea/Vomiting. Disc: Changing Therapy/Dosage Form LOS history recorded Follow-up and Disposition History Recorded Encounter Status:Closed by MAVISLOGHNASA HERNDON CNP on 04/27/18 CNOV Observed: 04/20/2018 Status: COMPLETED Source: [place] 11:00 AM [facility] REPOSITORY Office Visit (FAMPWS) EDEL LANG ([id number]) 1965 F Date Time Provider Department 04/20/18 11:00 AM KAREN LUCERO) ANGELA During your visit today, we recorded the following information about you: Pulse Respiration Blood pressure Weight 76/minute 12/minute 126/74 142.4 kg Karen Lucero APRN.CNP 04/20/2018 12:04 PM Signed This is a 52 year old female who presents today with: Patient presents with: Hospital Follow Up: concussion HISTORY OF PRESENT ILLNESS: Edel Lang is a 52 year old female. Patient presents with: Hospital Follow Up: concussion Pt presents today for ER follow-up. Hit the side of her face with a car door on Monday04/16/18. Went to work the next morning, felt a little confused and poor memory. She called into here and was suggested she go to the ER. Went to [facility]. Had a CT done and there was a concern of a small Subdural hematoma vs artifact. Because of symptoms, she was sent on to [facility] for further eval. She was evaluated by the trauma team at [facility]. They repeated the CT scan of the brain. They also obtained CT of the face and neck. Imagining showed no acute process. + concussion. Feeling a little better. Refers that she does still have a little bit of confusion. She hasn't been driving because of it. Refers that she continues with increased fatigue. 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 She was supposed to go to a training next week in [place]. Unsure if she is going to attend. She does have others that can drive if she attends. Some nausea. No vomiting. Eating small meals. 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 + headache. Some sensitivity to the light. Keeping things dim. She is using ice to her face. She is using tylenol and ibuprofen as needed for pain. PAST MEDICAL HISTORY: PAST MEDICAL HISTORY Diagnosis Date - FIBROMYALGIA - Cellulitis and abscess of unspecified site 11/26 right leg - Depressive disorder, not elsewhere classified - Dysmetabolic syndrome X 08/09/2006 - Esophageal reflux Gastroesophageal reflux - Generalized anxiety disorder - Hx of cystoscopy 09/11/2017 - Localized osteoarthrosis not specified whether primary or secondary, other specified sites bilateral knees - Morbid obesity with BMI of 50.0-59.9, adult (HCC) - Other genital herpes 08/09/2006 - Type II or unspecified type diabetes mellitus without mention of complication, not stated as uncontrolled - Unspecified asthma(493.90) - Unspecified essential hypertension Essential hypertension - Whooping cough, unspecified organism 11/26 PAST SURGICAL HISTORY Procedure Laterality Date - DELIVERY ONLY 1993 , low cervical - COLONOSCOP W/ OR W/O BRSH SPEC 03/24/2005 Colonoscopy - KNEE SCOPE,DIAGNOSTIC 2002 Arthroscopy, knee-right - KNEE SCOPE,DIAGNOSTIC 2003 Arthroscopy, knee-left - PAST SURGICAL HISTORY OF 1997 uterus out as well as cervix - PAST SURGICAL HISTORY OF 03/29/11 Excision of Rt lower leg lesion - PAST SURGICAL HISTORY OF 07/2014 cardiac cath - REMOVAL OF OVARY(S) 1999 Oophorectom bilateral - REMOVAL OF TONSILS,<10 Y/O 1967 Tonsillectomy - REPAIR INCISIONAL HERNIA,JUANA 05/11/11 with large ventralex mesh - REVISE MEDIAN N/CARPAL TUNNEL SURG -- Carpal tunnel decomp right and excision ganglion righ thumb - REVISE MEDIAN N/CARPAL TUNNEL SURG Left 09/09/2015 Carpal tunnel decomp left - SKIN SUB GRAFT LEG 2012 left LE ALLERGIES Nia [Fexofenadine Hcl]; Ancef [Cefazolin Sodium]; Clindamycin; Duoderm [Other]; Elavil [Amitriptyline]; Macrobid [Nitrofurantoin Monohyd/M-Cryst]; Norvasc [Amlodipine] MEDICATIONS Current Outpatient Prescriptions: busPIRone (BUSPAR) 5 mg tablet Take 15 mg by mouth twice daily. Dose needs clarified with patients pharmacy. mupirocin (BACTROBAN) 2 % ointment apply to affected area once daily fluconazole (DIFLUCAN) 150 mg tablet 1 tablet today and repeat in 72 hours lidocaine (LMX) 4 % cream Apply thin layer to affected area three times a day as needed for pain traMADol (ULTRAM) 50 mg tablet Take 1-2 tablets by mouth every 6 hours as needed for up to 90 days. oxybutynin ER (DITROPAN XL) 15 mg 24 hr Extended Rel Tab TAKE 1 TABLET BY MOUTH ONCE DAILY. ondansetron orally disintegrating (ZOFRAN ODT) 4 mg disintegrating tablet Take 1 tablet by mouth every 8 hours as needed for Nausea/Vomiting. lisinopril (ZESTRIL, PRINIVIL) 5 mg tablet Take 1 tablet by mouth once daily. orphenadrine ER (NORFLEX) 100 mg tablet Take 1 tablet by mouth twice daily as needed for Muscle Spasm. dicyclomine (BENTYL) 20 mg tablet Take 1 tablet by mouth three times daily. nadolol (CORGARD) 80 mg tablet Take 1-2 tablets by mouth once daily. As directed for high blood pressure and migraines valACYclovir (VALTREX) 500 mg tablet Take 1 tablet by mouth once daily. divalproex ER (DEPAKOTE ER) 500 mg 24 hr tablet take 1 tablet by mouth daily guaiFENesin (MUCINEX) 600 mg 12 hr tablet Take 2 tablets by mouth twice daily as needed. Benzonatate 200 mg capsule Take 1 capsule by mouth three times daily as needed. Omeprazole Magnesium (PRILOSEC OTC) 20 mg tablet Take 1 tablet by mouth daily before breakfast. 1/2 hr before meal. gabapentin (NEURONTIN) 600 mg tablet TAKE 2 TABLETS THREE TIMES A DAY hydrocortisone (ANUSOL-HC) 2.5 % rectal cream 1 application by RECTAL route twice daily. As directed blood sugar diagnostic (BLOOD GLUCOSE TEST) test strip Test blood sugar(s) 3 times daily. Dx: Type 2 DM - Uncontrolled E11.65 Insulin: No glimepiride (AMARYL) 2 mg tablet Take 2 tablets by mouth twice daily with meals. As directed Lancets lancets Test blood sugar(s) 3 times daily. Dx: Type 2 DM - Uncontrolled E11.65 Insulin: No benzocaine-menthol (CEPACOL) 15-2.6 mg lozg lozenge Take 1 Lozenge by mouth every 3 hours as needed. diazePAM (VALIUM) 5 mg tablet Take 10 mg by mouth once daily as needed for Anxiety. triamcinolone acetonide (KENALOG) 0.1 % cream Apply 1 application to affected area twice daily. For itchy lesions for 2 weeks (torso or extremities) as directed mometasone-formoterol (DULERA) 100-5 mcg/actuation inhaler Inhale 2 Puffs as instructed twice daily. albuterol HFA (VENTOLIN HFA) 90 mcg/actuation inhaler Inhale 2 Puffs as instructed every 4 hours as needed for Wheezing/Shortness of Breath. fluticasone (FLONASE) 50 mcg/actuation nasal spray Use 2 Sprays in each nostril once daily. blood sugar diagnostic (FREESTYLE LITE STRIPS) test strip Test blood sugar(s) 3 times daily. Dx: Type 2 DM - Controlled E11.9 Insulin: Yes CPAP Initiate CPAP @ 14 cm of water with humidification. EPR setting of 3. Mask (per patient preference) optional chin strap (if indicated) , filters, tubing, humidifier and lifetime supplies. COMPOUNDED PRESCRIPTION Nebulizer for home use. Diagnosis: Asthma exacerbation QUEtiapine (SEROQUEL) 300 mg tablet Take 1 tablet by mouth daily at bedtime. Also takes [address] Patterson. (Patient taking differently: Take 300 mg by mouth daily at bedtime. ) No current facility-administered medications for this visit. FAMILY HISTORY Problem Relation Age of Onset - Diabetes Mother - Hypertension Mother - Psychiatry Mother severe depression, bipolar - Asthma Mother - Arthritis Mother rheumatoid arthritis - fibromyalgia [OTHER] Mother - Hypertension Father - Stroke Father - traumatic brain injury [OTHER] Father - Alzheimer's Disease Maternal Grandmother - Hypertension Maternal Grandfather - Stroke Maternal Grandfather - parkinsons [OTHER] Maternal Grandfather - Stroke Paternal Grandmother 8 - Hypertension Paternal Grandmother - Seizures Son - schizo - affective [OTHER] Son - autism [OTHER] Son - partial agenesis of corpus collosm [OTHER] Son - depression [OTHER] Son Social History Marital status: Spouse name: Years of education: Number of children: 1 Occupational History 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 PHYSICAL EXAM: General Appearance: Well appearing, alert, in no acute distress, well-hydrated, well nourished.. Skin: Skin color, texture, turgor normal, no suspicious rashes or lesions. Head: Normocephalic, no masses, lesions, tenderness or abnormalities. Eyes: Anicteric sclera. Pupils are equally round and reactive to light. Extraocular movements are intact. Ecchymotic area below the left eye. Ears: External ears normal, canals clear, Normal TMs bilaterally. No sutherland sign. Oropharynx: Lips, mucosa, and tongue normal, teeth and gums normal, oropharynx normal. Neck: Supple, no adenopathy. ROM intact. Lungs: Lungs clear to auscultation. No wheezing, rhonchi, rales. Heart: RRR without murmur, gallop, or rubs. No ectopy. Abdomen: Abdomen soft, non-tender. Bowel sounds normal. No masses, organomegaly. Extremities: No deformities, edema, skin discoloration, clubbing or cyanosis. Good capillary refill. . Neurologic: Gait normal. Reflexes normal and symmetric. Sensation grossly intact., Negative findings: speech normal, mental status intact, cranial nerves 2-12 intact, Romberg negative, muscle tone normal, muscle strength normal, rapid alternating movements normal, finger to nose normal, reflexes normal and symmetric. ASSESSMENT/PLAN: 1. Concussion without loss of consciousness, subsequent encounter - ICD9: V58.89, 850.0, ICD10: S06.0X0D Stable. Continue ice to the left face. Tylenol/ibuprofen as needed. Written info on concussions given to patient. If worsens or does not improve, notify provider or to the ER for further eval. Discussed treatment plan and patient voices understanding. Patient's questions answered appropriately. Medications and potential side effects were discussed and patient voices understanding. Return to the office as scheduled or as needed for worsening/no improvement. Karen Lucero APRN.CHERIE Lucero APRN.CHERIE 04/20/2018 11:04 AM Signed 1. Continue to ice your face. 2. Continue ibuprofen/tylenol as needed for pain. 3. If anything should worse, please let us know or return to the ER. Referring Provider: SELF [[id number]] Allergies As of Date: 04/20/2018 Noted Allergy Reaction NIA (FEXOFENADINE HCL) 01/25/2006 12 - Shortness of Breath ANCEF (CEFAZOLIN SODIUM) 01/25/2006 4 - Hives CLINDAMYCIN 01/05/2007 6 - Diarrhea duoderm [Other] 05/21/2007 Comments: severe burning pain at point of contact. No redness. ELAVIL (AMITRIPTYLINE) 04/27/2007 Comments: hallucinations MACROBID (NITROFURANTOIN MONOHYD/*05/15/2007 4 - Hives NORVASC (AMLODIPINE) 12/11/2008 7 - Swelling Date Reviewed: 04/20/2018 Reviewed by: Penny Hooker Commercial Account Manager - Fully Assessed Reason for Visit: Hospital Follow Up [177] Cmt: concussion Primary Visit Diagnosis:Concussion without loss of consciousness, subsequent encounter [S06.0X0D] Prescriptions as of 04/20/2018 Sig: BUSPIRONE 5 MG TABLET Take 15 mg by mouth twice josé* MUPIROCIN 2 % TOPICAL OINTMENT apply to affected area once d* FLUCONAZOLE 150 MG TABLET 1 tablet today and repeat in * LIDOCAINE 4 % TOPICAL CREAM Apply thin layer to affected * TRAMADOL 50 MG TABLET Take 1-2 tablets by mouth nathalie* OXYBUTYNIN CHLORIDE ER 15 MG * TAKE 1 TABLET BY MOUTH ONCE D* ONDANSETRON 4 MG DISINTEGRATI* Take 1 tablet by mouth every * LISINOPRIL 5 MG TABLET Take 1 tablet by mouth once d* ORPHENADRINE CITRATE ER 100 M* Take 1 tablet by mouth twice * DICYCLOMINE 20 MG TABLET Take 1 tablet by mouth three * NADOLOL 80 MG TABLET Take 1-2 tablets by mouth onc* VALACYCLOVIR 500 MG TABLET Take 1 tablet by mouth once d* DIVALPROEX ER 500 MG TABLET,E* take 1 tablet by mouth daily GUAIFENESIN ER 600 MG TABLET,* Take 2 tablets by mouth twice* BENZONATATE 200 MG CAPSULE Take 1 capsule by mouth three* OMEPRAZOLE MAGNESIUM 20 MG TA* Take 1 tablet by mouth daily * GABAPENTIN 600 MG TABLET TAKE 2 TABLETS THREE TIMES A * HYDROCORTISONE 2.5 % TOPICAL * 1 application by RECTAL route* BLOOD SUGAR DIAGNOSTIC STRIPS Test blood sugar(s) 3 times d* GLIMEPIRIDE 2 MG TABLET Take 2 tablets by mouth twice* LANCETS Test blood sugar(s) 3 times d* BENZOCAINE-MENTHOL 15 MG-2.6 * Take 1 Lozenge by mouth every* DIAZEPAM 5 MG TABLET Take 10 mg by mouth once kala* TRIAMCINOLONE ACETONIDE 0.1 %* Apply 1 application to affect* MOMETASONE-FORMOTEROL HFA 100* Inhale 2 Puffs as instructed * ALBUTEROL SULFATE HFA 90 MCG/* Inhale 2 Puffs as instructed * FLUTICASONE 50 MCG/ACTUATION * Use 2 Sprays in each nostril * BLOOD SUGAR DIAGNOSTIC STRIPS Test blood sugar(s) 3 times d* CPAP Initiate CPAP @ 14 cm of wate* COMPOUNDED PRESCRIPTION Nebulizer for home use. Diagn* QUETIAPINE 300 MG TABLET Take 1 tablet by mouth daily * Patient taking differently: Take 300 mg by mouth daily at* Problem List As Of Date 04/20/2018 Noted Resolved ESOPHAGEAL REFLUX [K21.9] More... Unspecified asthma(493.90) [J45.909] 06/02/2017 More... 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 Unspecified vitamin D deficiency [E55.9] INVALID FOR*02/27/2013 GENITAL HERPES NEC [A60.00] INVALID FOR* URGE AND STRESS MIXED INCONTINENCE [N39.46] INVALID FOR* LACERATION -NOT COMPLICATED BREAST [S21.009A] INVALID FOR*02/27/2013 Diabetes (HCC) [E11.9] INVALID FOR* Enthesopathy of unspecified site [M77.9] INVALID FOR*02/27/2013 Adenopathy, Hilar [R59.0] INVALID FOR* Major depressive disorder, recurrent episode (H*INVALID FOR* Abnormal mammogram, unspecified [R92.8] INVALID FOR*06/02/2017 Wound, open, breast [S21.009A] INVALID FOR*02/27/2013 Benign neoplasm of skin of lower limb, includin*INVALID FOR*02/27/2013 Umbilical hernia without mention of obstruction*INVALID FOR*06/02/2017 Ventral hernia, unspecified, without mention of*INVALID FOR*06/02/2017 Anxiety [F41.9] INVALID FOR* Vitamin d deficiency [E55.9] INVALID FOR* Urge incontinence of urine [N39.41] INVALID FOR*06/02/2017 Pain of left lower leg [M79.662] INVALID FOR* Carpal tunnel syndrome of right wrist [G56.01] INVALID FOR*06/02/2017 Morbid obesity with BMI of 45.0-49.9, adult (HC* ABRAM (obstructive sleep apnea) [G47.33] INVALID FOR* More... Left carpal tunnel syndrome [G56.02] INVALID FOR*06/02/2017 Asthma with COPD with exacerbation (HCC) [J44.1*INVALID FOR* HTN (hypertension) [I10] INVALID FOR* Ganglion cyst of finger of right hand [M67.441] INVALID FOR* More... Other instructions from your clinician: 1. Continue to ice your face. 2. Continue ibuprofen/tylenol as needed for pain. 3. If anything should worse, please let us know or return to the ER. Letter Text Karen Lucero CNP [address], [place] [address] 04/20/2018 TO WHOM IT MAY CONCERN: This is to confirm that Edel Lang had an appointment and was seen at the [facility] in the Department of Family Medicine by Karen Lucero CNP on 04/20/2018. Please excuse Edel from work on 04/20/18 for medical reasons. Sincerely yours, Karen Lucero CNP Letter Text [facility] [address] [phone] TO WHOM IT MAY CONCERN: This is to confirm that Edel Lang had an appointment and was seen at the [facility] in the Department of Family Medicine Karen Lucero CNP on 04/20/2018. Please excuse her from work on 04/20/18, 04/23/18, and 04/24/18 for medical reasons. She may return to work on 04/25/18. Sincerely yours, Karen Lucero CNP Encounter Status:Closed by KAREN LUCERO CNP on 04/20/18 PROGRESS Observed: 04/20/2018 Status: COMPLETED Source: [place] 10:36 AM [facility] [place] REPOSITORY HNO ID: [id number] Author: Karen Lucero Service: (none) Author Type: Nurse Practitioner Type: Progress Notes Filed: 04/20/2018 12:04 PM Note Text: This is a 52 year old female who presents today with: Patient presents with: Hospital Follow Up: concussion HISTORY OF PRESENT ILLNESS: Edel Lang is a 52 year old female. Patient presents with: Hospital Follow Up: concussion Pt presents today for ER follow-up. Hit the side of her face with a car door on Monday04/16/18. Went to work the next morning, felt a little confused and poor memory. She called into here and was suggested she go to the ER. Went to [facility]. Had a CT done and there was a concern of a small Subdural hematoma vs artifact. Because of symptoms, she was sent on to [facility] for further eval. She was evaluated by the trauma team at [facility]. They repeated the CT scan of the brain. They also obtained CT of the face and neck. Imagining showed no acute process. + concussion. Feeling a little better. Refers that she does still have a little bit of confusion. She hasn't been driving because of it. Refers that she continues with increased fatigue. 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 She was supposed to go to a training next week in [place]. Unsure if she is going to attend. She does have others that can drive if she attends. Some nausea. No vomiting. Eating small meals. 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 + headache. Some sensitivity to the light. Keeping things dim. She is using ice to her face. She is using tylenol and ibuprofen as needed for pain. PAST MEDICAL HISTORY: PAST MEDICAL HISTORY Diagnosis Date - FIBROMYALGIA - Cellulitis and abscess of unspecified site 11/26 right leg - Depressive disorder, not elsewhere classified - Dysmetabolic syndrome X 08/09/2006 - Esophageal reflux Gastroesophageal reflux - Generalized anxiety disorder - Hx of cystoscopy 09/11/2017 - Localized osteoarthrosis not specified whether primary or secondary, other specified sites bilateral knees - Morbid obesity with BMI of 50.0-59.9, adult (HCC) - Other genital herpes 08/09/2006 - Type II or unspecified type diabetes mellitus without mention of complication, not stated as uncontrolled - Unspecified asthma(493.90) - Unspecified essential hypertension Essential hypertension - Whooping cough, unspecified organism 11/26 PAST SURGICAL HISTORY Procedure Laterality Date - DELIVERY ONLY 1993 , low cervical - COLONOSCOP W/ OR W/O [facility] SPEC 03/24/2005 Colonoscopy - KNEE SCOPE,DIAGNOSTIC 2002 Arthroscopy, knee-right - KNEE SCOPE,DIAGNOSTIC 2003 Arthroscopy, knee-left - PAST SURGICAL HISTORY OF 1997 uterus out as well as cervix - PAST SURGICAL HISTORY OF 03/29/11 Excision of Rt lower leg lesion - PAST SURGICAL HISTORY OF 07/2014 cardiac cath - REMOVAL OF OVARY(S) 1999 Oophorectom bilateral - REMOVAL OF TONSILS,<10 Y/O 1967 Tonsillectomy - REPAIR INCISIONAL HERNIA,JUANA 05/11/11 with large ventralex mesh - REVISE MEDIAN N/CARPAL TUNNEL SURG 05-16-14 Carpal tunnel decomp right and excision ganglion righ thumb - REVISE MEDIAN N/CARPAL TUNNEL SURG Left 09/09/2015 Carpal tunnel decomp left - SKIN SUB GRAFT LEG 2012 left LE ALLERGIES Nia [Fexofenadine Hcl]; Ancef [Cefazolin Sodium]; Clindamycin; Duoderm [Other]; Elavil [Amitriptyline]; Macrobid [Nitrofurantoin Monohyd/M-Cryst]; Norvasc [Amlodipine] MEDICATIONS Current Outpatient Prescriptions: busPIRone (BUSPAR) 5 mg tablet Take 15 mg by mouth twice daily. Dose needs clarified with patients pharmacy. mupirocin (BACTROBAN) 2 % ointment apply to affected area once daily fluconazole (DIFLUCAN) 150 mg tablet 1 tablet today and repeat in 72 hours lidocaine (LMX) 4 % cream Apply thin layer to affected area three times a day as needed for pain traMADol (ULTRAM) 50 mg tablet Take 1-2 tablets by mouth every 6 hours as needed for up to 90 days. oxybutynin ER (DITROPAN XL) 15 mg 24 hr Extended Rel Tab TAKE 1 TABLET BY MOUTH ONCE DAILY. ondansetron orally disintegrating (ZOFRAN ODT) 4 mg disintegrating tablet Take 1 tablet by mouth every 8 hours as needed for Nausea/Vomiting. lisinopril (ZESTRIL, PRINIVIL) 5 mg tablet Take 1 tablet by mouth once daily. orphenadrine ER (NORFLEX) 100 mg tablet Take 1 tablet by mouth twice daily as needed for Muscle Spasm. dicyclomine (BENTYL) 20 mg tablet Take 1 tablet by mouth three times daily. nadolol (CORGARD) 80 mg tablet Take 1-2 tablets by mouth once daily. As directed for high blood pressure and migraines valACYclovir (VALTREX) 500 mg tablet Take 1 tablet by mouth once daily. divalproex ER (DEPAKOTE ER) 500 mg 24 hr tablet take 1 tablet by mouth daily guaiFENesin (MUCINEX) 600 mg 12 hr tablet Take 2 tablets by mouth twice daily as needed. Benzonatate 200 mg capsule Take 1 capsule by mouth three times daily as needed. Omeprazole Magnesium (PRILOSEC OTC) 20 mg tablet Take 1 tablet by mouth daily before breakfast. 1/2 hr before meal. gabapentin (NEURONTIN) 600 mg tablet TAKE 2 TABLETS THREE TIMES A DAY hydrocortisone (ANUSOL-HC) 2.5 % rectal cream 1 application by RECTAL route twice daily. As directed blood sugar diagnostic (BLOOD GLUCOSE TEST) test strip Test blood sugar(s) 3 times daily. Dx: Type 2 DM - Uncontrolled E11.65 Insulin: No glimepiride (AMARYL) 2 mg tablet Take 2 tablets by mouth twice daily with meals. As directed Lancets lancets Test blood sugar(s) 3 times daily. Dx: Type 2 DM - Uncontrolled E11.65 Insulin: No benzocaine-menthol (CEPACOL) 15-2.6 mg lozg lozenge Take 1 Lozenge by mouth every 3 hours as needed. diazePAM (VALIUM) 5 mg tablet Take 10 mg by mouth once daily as needed for Anxiety. triamcinolone acetonide (KENALOG) 0.1 % cream Apply 1 application to affected area twice daily. For itchy lesions for 2 weeks (torso or extremities) as directed mometasone-formoterol (DULERA) 100-5 mcg/actuation inhaler Inhale 2 Puffs as instructed twice daily. albuterol HFA (VENTOLIN HFA) 90 mcg/actuation inhaler Inhale 2 Puffs as instructed every 4 hours as needed for Wheezing/Shortness of Breath. fluticasone (FLONASE) 50 mcg/actuation nasal spray Use 2 Sprays in each nostril once daily. blood sugar diagnostic (FREESTYLE LITE STRIPS) test strip Test blood sugar(s) 3 times daily. Dx: Type 2 DM - Controlled E11.9 Insulin: Yes CPAP Initiate CPAP @ 14 cm of water with humidification. EPR setting of 3. Mask (per patient preference) optional chin strap (if indicated) , filters, tubing, humidifier and lifetime supplies. COMPOUNDED PRESCRIPTION Nebulizer for home use. Diagnosis: Asthma exacerbation QUEtiapine (SEROQUEL) 300 mg tablet Take 1 tablet by mouth daily at bedtime. Also takes [address] Patterson. (Patient taking differently: Take 300 mg by mouth daily at bedtime. ) No current facility-administered medications for this visit. FAMILY HISTORY Problem Relation Age of Onset - Diabetes Mother - Hypertension Mother - Psychiatry Mother severe depression, bipolar - Asthma Mother - Arthritis Mother rheumatoid arthritis - fibromyalgia [OTHER] Mother - Hypertension Father - Stroke Father - traumatic brain injury [OTHER] Father - Alzheimer's Disease Maternal Grandmother - Hypertension Maternal Grandfather - Stroke Maternal Grandfather - parkinsons [OTHER] Maternal Grandfather - Stroke Paternal Grandmother 8 - Hypertension Paternal Grandmother - Seizures Son - schizo - affective [OTHER] Son - autism [OTHER] Son - partial agenesis of corpus collosm [OTHER] Son - depression [OTHER] Son Social History Marital status: Spouse name: Years of education: Number of children: 1 Occupational History 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 PHYSICAL EXAM: General Appearance: Well appearing, alert, in no acute distress, well-hydrated, well nourished.. Skin: Skin color, texture, turgor normal, no suspicious rashes or lesions. Head: Normocephalic, no masses, lesions, tenderness or abnormalities. Eyes: Anicteric sclera. Pupils are equally round and reactive to light. Extraocular movements are intact. Ecchymotic area below the left eye. Ears: External ears normal, canals clear, Normal TMs bilaterally. No sutherland sign. Oropharynx: Lips, mucosa, and tongue normal, teeth and gums normal, oropharynx normal. Neck: Supple, no adenopathy. ROM intact. Lungs: Lungs clear to auscultation. No wheezing, rhonchi, rales. Heart: RRR without murmur, gallop, or rubs. No ectopy. Abdomen: Abdomen soft, non-tender. Bowel sounds normal. No masses, organomegaly. Extremities: No deformities, edema, skin discoloration, clubbing or cyanosis. Good capillary refill. . Neurologic: Gait normal. Reflexes normal and symmetric. Sensation grossly intact., Negative findings: speech normal, mental status intact, cranial nerves 2-12 intact, Romberg negative, muscle tone normal, muscle strength normal, rapid alternating movements normal, finger to nose normal, reflexes normal and symmetric. ASSESSMENT/PLAN: 1. Concussion without loss of consciousness, subsequent encounter - ICD9: V58.89, 850.0, ICD10: S06.0X0D Stable. Continue ice to the left face. Tylenol/ibuprofen as needed. Written info on concussions given to patient. If worsens or does not improve, notify provider or to the ER for further eval. Discussed treatment plan and patient voices understanding. Patient's questions answered appropriately. Medications and potential side effects were discussed and patient voices understanding. Return to the office as scheduled or as needed for worsening/no improvement. Karen Lucero APRN.CATH LAB RADIOLOGICAL TECHNOLOGIST HISTORY PHYSICAL Observed: 04/18/2018 Status: COMPLETED Source: [place] 1:33 AM CLINIC OTHER CAMPUS REPOSITORY HNO ID: [id number] Author: Maxi Willis Service: Trauma Author Type: Physician Type: HANDP Filed: 04/18/2018 8:47 PM Note Text: TRAUMA HANDP [facility] ARRIVAL DATE: 04/17/18 ARRIVAL TIME: 22:53 CATEGORY: Level 3 INJURY DATE: 04/16/18 INJURY TIME: 2:00PM Subjective This is a 52 year old White female who presents after closing car door onto her face. GCS at Scene was 15. Pt states that she pulled the door shut too abruptly before sitting in car and hit herself on the left side of the face. Denies LOC. No acute events yesterday night. However, pt was having some headache, dizziness, nausea, confusion, and trouble remembering details today at work. She then presented to [place] where CT was done showing possible SDH vs artifact. She was sent to [facility] for further workup. BRIEF DESCRIPTION OF INJURIES: left infraorbital ecchymosis LAST FLUIDS/MEAL: lunch time 04/17/18 ALLERGIES Allergen Reactions - Nia [Fexofenadi* Shortness of Breath - Ancef [Cefazolin So* Hives - Clindamycin Diarrhea - Duoderm [Other] severe burning pain at point of contact. No redness. - Elavil [Amitriptyli* hallucinations - Macrobid [Nitrofura* Hives - Norvasc [Amlodipine] Swelling (Not in a hospital admission) DATE OF LAST TETANUS: 2016 (see below) Immunization History Administered Date(s) Administered Hepatitis B Adult 10/10/2016 Influenza Seasonal Inj Age 3+ 08/16/2015 Influenza Seasonal Inj Quadrivalent Age 3+ 10/10/2016 08/28/2017 Influenza Vaccine, Split-Non Spec 09/12/2006 10/08/2008 09/10/2014 PPD ([place]) 10/10/2016 Pneumovax 10/25/2014 Tdap (Age 7+) 08/28/2017 PAST MEDICAL HISTORY Diagnosis Date - FIBROMYALGIA - Cellulitis and abscess of unspecified site 11/26 right leg - Depressive disorder, not elsewhere classified - Dysmetabolic syndrome X 08/09/2006 - Esophageal reflux Gastroesophageal reflux - Generalized anxiety disorder - Hx of cystoscopy 09/11/2017 - Localized osteoarthrosis not specified whether primary or secondary, other specified sites bilateral knees - Morbid obesity with BMI of 50.0-59.9, adult (HCC) - Other genital herpes 08/09/2006 - Type II or unspecified type diabetes mellitus without mention of complication, not stated as uncontrolled - Unspecified asthma(493.90) - Unspecified essential hypertension Essential hypertension - Whooping cough, unspecified organism 11/26 PAST SURGICAL HISTORY Procedure Laterality Date - DELIVERY ONLY 1993 , low cervical - COLONOSCOP W/ OR W/O [facility] SPEC 03/24/2005 Colonoscopy - KNEE SCOPE,DIAGNOSTIC 2002 Arthroscopy, knee-right - KNEE SCOPE,DIAGNOSTIC 2003 Arthroscopy, knee-left - PAST SURGICAL HISTORY OF 1997 uterus out as well as cervix - PAST SURGICAL HISTORY OF 03/29/11 Excision of Rt lower leg lesion - PAST SURGICAL HISTORY OF 07/2014 cardiac cath - REMOVAL OF OVARY(S) 1999 Oophorectom bilateral - REMOVAL OF TONSILS,<10 Y/O 1967 Tonsillectomy - REPAIR INCISIONAL HERNIA,JUANA 05/11/11 with large ventralex mesh - REVISE MEDIAN N/CARPAL TUNNEL SURG 05-16- Carpal tunnel decomp right and excision ganglion righ thumb - REVISE MEDIAN N/CARPAL TUNNEL SURG Left 09/09/2015 Carpal tunnel decomp left - SKIN SUB GRAFT LEG 2012 left LE Social History Marital status: Spouse name: Years of education: Number of children: 1 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 Yes headache Constitutional: Negative Eye/Ear/Nose: Negative Respiratory: Negative Cardiovascular: Negative GI/Liver/Biliary: mild nausea Genitourinary: Negative Psychiatric: Negative Neurologic: dizziness, headache, confusion Musculoskeletal: Negative Integument: Negative Endocrine: Negative Heme/Lymph: Negative Objective PRIMARY SURVEY AIRWAY: Patent BREATHING: Breath sounds equal CIRCULATION: Radials intact DISABILITY: Eye: 4=Spontaneous Verbal: 5=Oriented and Converses Motor: 6=Obeys Commands Total GCS: 15=4 Resp Rate: 10 to 29=4 Syst BP: > than 89=4 REVISED TRAUMA SCORE: 12 EXPOSE / ENVIRONMENT: Warm Blankets PROCEDURES: none SECONDARY SURVEY VITALS: 04/17/18 2256 04/17/18 2336 04/18/18 0033 04/18/18 0119 BP: 172/85 177/85 149/71 178/81 Pulse: 74 68 68 74 Resp: 18 16 16 16 SpO2: 97% 96% 98% (!) 93% Weight: (!) 142.9 kg (315 lb) Height: 165.1 cm (5' 5) NEURO: Alert AND Oriented x 3, GCS 15, Cranial Nerves II-XII Intact, Moves All Extremities, Strength Symmetrical, No Sensory Deficits HEENT: Head: No lacerations or abrasions, no bony step offs, Eyes: PERRL, conjunctiva/corneas without lesions, EOM intact, Ears: Canals without blood or CSF drainage, external ears without lacerations Throat: Oral mucosa without lacerations, teeth in place, tongue without lacerations NECK: No midline pain with palpation, No pain with active ROM, No lacerations/wounds, Trachea midline RESPIRATORY: No abrasions or contusions, No crepitus, No TTP, breath sounds equal CARDIOVASCULAR: Heart rate regular ABDOMEN: Non-distended, Non-tenderness or peritoneal signs PELVIC/PERINEAL: Pelvis stable to palpation BACK/SPINE: Thoracolumbar spinal column non-tender EXTREMITIES: MOSQUERA. No deformities RADIOLOGICAL/OTHER TEST DATA: CT Head: No traumatic injuries CT C-Spine/Neck: No traumatic injuries CT Facial Bones: No traumatic injuries PRIOR TO ARRIVAL: Evaluation at [place] ED. Imaging below IMAGES ([place]): CT Brain w/o IV contrast: IMPRESSION: There is a rim of hyperdensity in the left temporal extra-axial region which may represent a small subdural hematoma versus summation artifact. Given clinical history recommend short- term interval follow-up study. There is no significant associated edema LABS:none Assessment/Plan DIAGNOSES: 52 yo female who presents after hitting face on car door. CT HNF negative. Likely with post-concussive symptoms - no acute trauma surgical intervention - okay to d/c from trauma standpoint (with family available for close obs for at least 24 hrs) - encourage f/u with PCP this week Discussed with Dr. Willis Trauma Service Pager: For questions or concerns Mon-Fri 6a-5p please page [phone]. After 5pm and on Weekends and Holidays, please page [phone] if in ICU or [phone] if on RNF. SIGNATURE: Shan Dsouza MD PATIENT NAME: Edel Lang DATE: April 18, 2018 TIME: 1:33 AM PAGER/CONTACT #: above As above. Discussed with resident over the phone. Not seen by me personally. OK to D/C from ED Maxi Willis MD CT HEAD W/O CONTRAST Observed: 04/18/2018 Status: F Source: [facility] 12:55 AM HEALTH SYSTEM REPOSITORY Performed at [facility] APPROVED BY: SHARI WILSON MD EXAMINATION: CT HEAD W/O CONTRAST, CT MAXILLOFACIAL W/O CONTRAST, CT CERVICAL SPINE W/O CONTRAST CLINICAL HISTORY: Ecchymosis around the left eye. Head injury. TECHNIQUE: Serial axial unenhanced images were obtained from the vertex to the foramen magnum. Spiral, high resolution axial unenhanced images were obtained from the skull base to the cervicothoracic junction with sagittal and coronal planar reconstructions. Spiral high resolution axial unenhanced images were also obtained through the facial bones with sagittal and coronal planar reconstructions. MQ: CTBCSFBWO_1 Dose-Length Product (DLP): 1734.58 mGy*cm. CT Dose Reduction Employed: Yes COMPARISON: CT brain 04/17/2018 RESULT: BRAIN: Acute change: No CT evidence of an acute contusion or other acute parenchymal process. Hemorrhage: No evidence of acute intracranial hemorrhage. Mass lesion / Mass effect: There is no evidence of an intracranial mass or extraaxial fluid collection. No significant mass effect. Chronic change: None apparent. Parenchyma: There is no significant volume loss. The brain parenchyma is otherwise within normal limits for age. Ventricles: The ventricles are within normal limits of size and configuration for age. Paranasal sinuses and skull base: The visualized paranasal sinuses are grossly clear. The skull base and visualized extracranial soft tissues are grossly normal. Small nodules of soft tissue attenuat ion within the parotid glands bilaterally likely represent intraparotid lymph nodes. CERVICAL: Counting reference: Craniocervical junction. Alignment: Alignment is anatomic. Craniocervical junction: Craniocervical junction is normal. Atlantoaxial interval is preserved. Osseous structures/fracture: No evidence of a lytic or blastic process in the visualized spine. No evidence of acute or chronic fracture. Cervical soft tissues: The paraspinal soft tissues planes are maintained. Degenerative changes: No significant narrowing of the bony spinal canal or bony neural foramina. FACIAL BONES: Soft Tissues: Minimal subcutaneous soft tissue stranding left infraorbital region. Remaining visualized soft tissues are unremarkable. Facial bones: No evidence of an acute fracture in the visualized facial bones. Orbits: No evidence of an acute fracture. The globes are intact. The soft tissue planes of the orbits are maintained. Paranasal Sinuses: The paranasal sinuses are clear. Foreign Bodies: No evidence of radiopaque foreign bodies. Other: No evidence of a remote fracture. No lytic or blastic process seen in the facial bones. IMPRESSION: Normal Brain. No CT evidence of acute intracranial process. No cervical spine fracture or traumatic malalignment. No evidence of acute facial bone fracture. Mild subcutaneous soft tissue stranding left infraorbital region. CT CERVICAL SPINE W/O Observed: 04/18/2018 Status: F Source: [facility] 12:55 AM HEALTH SYSTEM REPOSITORY Performed at [facility] APPROVED BY: SHARI WILSON MD EXAMINATION: CT HEAD W/O CONTRAST, CT MAXILLOFACIAL W/O CONTRAST, CT CERVICAL SPINE W/O CONTRAST CLINICAL HISTORY: Ecchymosis around the left eye. Head injury. TECHNIQUE: Serial axial unenhanced images were obtained from the vertex to the foramen magnum. Spiral, high resolution axial unenhanced images were obtained from the skull base to the cervicothoracic junction with sagittal and coronal planar reconstructions. Spiral high resolution axial unenhanced images were also obtained through the facial bones with sagittal and coronal planar reconstructions. MQ: CTBCSFBWO_1 Dose-Length Product (DLP): 1734.58 mGy*cm. CT Dose Reduction Employed: Yes COMPARISON: CT brain 04/17/2018 RESULT: BRAIN: Acute change: No CT evidence of an acute contusion or other acute parenchymal process. Hemorrhage: No evidence of acute intracranial hemorrhage. Mass lesion / Mass effect: There is no evidence of an intracranial mass or extraaxial fluid collection. No significant mass effect. Chronic change: None apparent. Parenchyma: There is no significant volume loss. The brain parenchyma is otherwise within normal limits for age. Ventricles: The ventricles are within normal limits of size and configuration for age. Paranasal sinuses and skull base: The visualized paranasal sinuses are grossly clear. The skull base and visualized extracranial soft tissues are grossly normal. Small nodules of soft tissue attenuat ion within the parotid glands bilaterally likely represent intraparotid lymph nodes. CERVICAL: Counting reference: Craniocervical junction. Alignment: Alignment is anatomic. Craniocervical junction: Craniocervical junction is normal. Atlantoaxial interval is preserved. Osseous structures/fracture: No evidence of a lytic or blastic process in the visualized spine. No evidence of acute or chronic fracture. Cervical soft tissues: The paraspinal soft tissues planes are maintained. Degenerative changes: No significant narrowing of the bony spinal canal or bony neural foramina. FACIAL BONES: Soft Tissues: Minimal subcutaneous soft tissue stranding left infraorbital region. Remaining visualized soft tissues are unremarkable. Facial bones: No evidence of an acute fracture in the visualized facial bones. Orbits: No evidence of an acute fracture. The globes are intact. The soft tissue planes of the orbits are maintained. Paranasal Sinuses: The paranasal sinuses are clear. Foreign Bodies: No evidence of radiopaque foreign bodies. Other: No evidence of a remote fracture. No lytic or blastic process seen in the facial bones. IMPRESSION: Normal Brain. No CT evidence of acute intracranial process. No cervical spine fracture or traumatic malalignment. No evidence of acute facial bone fracture. Mild subcutaneous soft tissue stranding left infraorbital region. CT MAXILLOFACIAL W/O Observed: 04/18/2018 Status: F Source: [facility] 12:55 AM HEALTH SYSTEM REPOSITORY Performed at [facility] APPROVED BY: SHARI WILSON MD EXAMINATION: CT HEAD W/O CONTRAST, CT MAXILLOFACIAL W/O CONTRAST, CT CERVICAL SPINE W/O CONTRAST CLINICAL HISTORY: Ecchymosis around the left eye. Head injury. TECHNIQUE: Serial axial unenhanced images were obtained from the vertex to the foramen magnum. Spiral, high resolution axial unenhanced images were obtained from the skull base to the cervicothoracic junction with sagittal and coronal planar reconstructions. Spiral high resolution axial unenhanced images were also obtained through the facial bones with sagittal and coronal planar reconstructions. MQ: CTBCSFBWO_1 Dose-Length Product (DLP): 1734.58 mGy*cm. CT Dose Reduction Employed: Yes COMPARISON: CT brain 04/17/2018 RESULT: BRAIN: Acute change: No CT evidence of an acute contusion or other acute parenchymal process. Hemorrhage: No evidence of acute intracranial hemorrhage. Mass lesion / Mass effect: There is no evidence of an intracranial mass or extraaxial fluid collection. No significant mass effect. Chronic change: None apparent. Parenchyma: There is no significant volume loss. The brain parenchyma is otherwise within normal limits for age. Ventricles: The ventricles are within normal limits of size and configuration for age. Paranasal sinuses and skull base: The visualized paranasal sinuses are grossly clear. The skull base and visualized extracranial soft tissues are grossly normal. Small nodules of soft tissue attenuat ion within the parotid glands bilaterally likely represent intraparotid lymph nodes. CERVICAL: Counting reference: Craniocervical junction. Alignment: Alignment is anatomic. Craniocervical junction: Craniocervical junction is normal. Atlantoaxial interval is preserved. Osseous structures/fracture: No evidence of a lytic or blastic process in the visualized spine. No evidence of acute or chronic fracture. Cervical soft tissues: The paraspinal soft tissues planes are maintained. Degenerative changes: No significant narrowing of the bony spinal canal or bony neural foramina. FACIAL BONES: Soft Tissues: Minimal subcutaneous soft tissue stranding left infraorbital region. Remaining visualized soft tissues are unremarkable. Facial bones: No evidence of an acute fracture in the visualized facial bones. Orbits: No evidence of an acute fracture. The globes are intact. The soft tissue planes of the orbits are maintained. Paranasal Sinuses: The paranasal sinuses are clear. Foreign Bodies: No evidence of radiopaque foreign bodies. Other: No evidence of a remote fracture. No lytic or blastic process seen in the facial bones. IMPRESSION: Normal Brain. No CT evidence of acute intracranial process. No cervical spine fracture or traumatic malalignment. No evidence of acute facial bone fracture. Mild subcutaneous soft tissue stranding left infraorbital region. ED NOTE Observed: 04/17/2018 Status: COMPLETED Source: [facility] 11:35 PM CLINIC OTHER CAMPUS REPOSITORY HNO ID: [id number] Author: Rob Rojo) TOOTIE Martinez Service: Emergency Medicine Author Type: Registered Nurse Type: ED Notes Filed: 04/17/2018 11:36 PM Note Text: Transport notified patient is ready for CT ED NOTE Observed: 04/17/2018 Status: COMPLETED Source: [facility] 11:30 PM [facility] OTHER CAMPUS REPOSITORY HNO ID: [id number] Author: Rob (Rn) TOOTIE Martinez Service: Emergency Medicine Author Type: Registered Nurse Type: ED Notes Filed: 04/17/2018 11:37 PM Note Text: Pt ambulated to restroom w/ assist x 1. Returned to ED-8. Pt tolerated well. ED PROV NOTE Observed: 04/17/2018 Status: COMPLETED Source: [facility] 11:18 PM [facility] OTHER CAMPUS REPOSITORY HNO ID: [id number] Author: Trey Frias MD Service: Emergency Medicine Author Type: Physician Type: ED Provider Notes Filed: 04/18/2018 11:24 PM Note Text: ED Provider Note Patient Name: Edel Lang SERVICE DATE: 04/17/18 History Patient presents with: Head Injury: Pt hit the left side of her head on her car door yesterday, was sent to [place] ED for evaluation. Transfered to [facility] for possible head bleed vs. artifact. Pt unable to tolerate MRI at [place]. Pt AANDO x 4, MOSQUERA x 4, PERRLA. Pt c/o headache 05/29. Given 1000 mg Tylenol at 1800. No other complaints at this time. Patient is a 52-year-old female sent from outside hospital for trauma evaluation. Briefly the patient the previous day hit herself in the face with her car door. Patient denies loss of consciousness but states that since the episode she has had confusion, decreased cognition, double vision, and headache. She was seen at the outside hospital where CT scan was obtained and [address] Imaging Showed Artifact Versus Subdural Hematoma. On arrival to the ED the patient is awake and alert but that she does have a diffuse headache. Patient states that she feels like her cognitive deficit has improved and she no longer has double vision. Denies neck pain nausea vomiting paresthesias weakness chest pain shortness of breath abdominal pain or change in bowel or urinary function. PAST MEDICAL HISTORY Diagnosis Date - FIBROMYALGIA - Cellulitis and abscess of unspecified site 11/26 right leg - Depressive disorder, not elsewhere classified - Dysmetabolic syndrome X 08/09/2006 - Esophageal reflux Gastroesophageal reflux - Generalized anxiety disorder - Hx of cystoscopy 09/11/2017 - Localized osteoarthrosis not specified whether primary or secondary, other specified sites bilateral knees - Morbid obesity with BMI of 50.0-59.9, adult (HCC) - Other genital herpes 08/09/2006 - Type II or unspecified type diabetes mellitus without mention of complication, not stated as uncontrolled - Unspecified asthma(493.90) - Unspecified essential hypertension Essential hypertension - Whooping cough, unspecified organism 11/26 PAST SURGICAL HISTORY Procedure Laterality Date - DELIVERY ONLY 1993 , low cervical - COLONOSCOP W/ OR W/O BRSH SPEC 03/24/2005 Colonoscopy - KNEE SCOPE,DIAGNOSTIC 2002 Arthroscopy, knee-right - KNEE SCOPE,DIAGNOSTIC 2003 Arthroscopy, knee-left - PAST SURGICAL HISTORY OF 1997 uterus out as well as cervix - PAST SURGICAL HISTORY OF 03/29/11 Excision of Rt lower leg lesion - PAST SURGICAL HISTORY OF 07/2014 cardiac cath - REMOVAL OF OVARY(S) 1999 Oophorectom bilateral - REMOVAL OF TONSILS,<10 Y/O 1967 Tonsillectomy - REPAIR INCISIONAL HERNIA,JUANA 05/11/11 with large ventralex mesh - [facility]IAN N/CARPAL TUNNEL SURG 05-16-14 Carpal tunnel decomp right and excision ganglion righ thumb - [facility] N/CARPAL TUNNEL SURG Left 09/09/2015 Carpal tunnel decomp left - SKIN SUB GRAFT LEG 2012 left LE FAMILY HISTORY Problem Relation Age of Onset - Diabetes Mother - Hypertension Mother - Psychiatry Mother severe depression, bipolar - Asthma Mother - Arthritis Mother rheumatoid arthritis - fibromyalgia [OTHER] Mother - Hypertension Father - Stroke Father - traumatic brain injury [OTHER] Father - Alzheimer's Disease Maternal Grandmother - Hypertension Maternal Grandfather - Stroke Maternal Grandfather - parkinsons [OTHER] Maternal Grandfather - Stroke Paternal Grandmother 8 - Hypertension Paternal Grandmother - Seizures Son - schizo - affective [OTHER] Son - autism [OTHER] Son - partial agenesis of corpus collosm [OTHER] Son - depression [OTHER] Son Social History Social History Main Topics - Smoking status: Never Smoker - Smokeless tobacco: Never Used - Alcohol use No Comment: recovering alcoholic-quit 1985 - Drug use: No Comment: 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 No redness. - Elavil [Amitriptyli* hallucinations - Macrobid [Nitrofura* Hives - Norvasc [Amlodipine] Swelling Review of Systems Constitutional: Negative for activity change, fatigue and unexpected weight change. HENT: Negative for hearing loss and voice change. Eyes: Negative for discharge and visual disturbance. Respiratory: Negative for apnea and stridor. Cardiovascular: Negative for palpitations. Gastrointestinal: Negative for abdominal distention and vomiting. Endocrine: Negative for polydipsia and polyphagia. Genitourinary: Negative for dysuria and hematuria. Musculoskeletal: Negative for arthralgias and neck pain. Skin: Negative for color change and pallor. Neurological: Positive for headaches. Negative for dizziness, syncope, speech difficulty, weakness, light-headedness and numbness. Hematological: Negative for adenopathy. Psychiatric/Behavioral: Negative for agitation. Physical Exam BP 172/85 Pulse 74 Resp 18 Ht 5' 5 (1.65m) Wt 315 lb (142.9kg) SpO2 97% BMI 52.42 kg/(m2). Physical Exam Constitutional: She is oriented to person, place, and time. She appears well-developed and well-nourished. No distress. HENT: Head: Normocephalic and atraumatic. Eyes: Conjunctivae and EOM are normal. Pupils are equal, round, and reactive to light. Neck: Normal range of motion. No tracheal deviation present. Cardiovascular: Normal rate, regular rhythm, normal heart sounds and intact distal pulses. Exam reveals no gallop and no friction rub. No murmur heard. Pulmonary/Chest: Effort normal. No respiratory distress. She has no wheezes. She has no rales. Abdominal: Soft. She exhibits no distension. There is no tenderness. There is no guarding. Musculoskeletal: Normal range of motion. She exhibits no edema, tenderness or deformity. Neurological: She is alert and oriented to person, place, and time. No cranial nerve deficit or sensory deficit. She exhibits normal muscle tone. Coordination normal. Skin: Skin is warm and dry. Capillary refill takes less than 2 seconds. Psychiatric: She has a normal mood and affect. Nursing note and vitals reviewed. Diagnostic Testing ED Labs Ordered and Reviewed - No data to display Procedures Medical Decision Making MDM Patient presents to the ED for evaluation of abnormal CT results. Patient had improvement of her symptoms at time of arrival to the ED. We'll obtain a trauma consult and agree CT the patient's head and face. Differential diagnoses includes dramatic brain injury, concussion, subdural hematoma, orbital fracture ED Course / Clinical Impression ED Course as of Apr 18 1952 Brett Monzon's Documentation MonApril 18, 20181950 patient's imaging was negative for any acute abnormalities. on reassessment the patient hasn't ever symptoms. return medications discussed with the patient. patient encouraged to seek outpatient follow-up. Patient remained hemodynamically stable while in the ED. The patient's findings were discussed with the patient, as well as why it was our opinion the patient was appropriate for discharge. The patient was amenable to discharge and was instructed on when to seek medical attention for new, persistent or worsening symptoms. The patient demonstrated understanding of discharge instructions. The patient was evaluated by myself and the attending physician. Clinical Impressions as Apr 18 1952 Traumatic brain injury, without loss of consciousness, initial encounter (HCC) Plan The patient was DISCHARGED: Counseled patient regarding radiology results AND suspected diagnosis AND need for follow-up. Discharged home with verbal and written instructions. They were instructed to return as needed for persistent or worsening symptoms or any new concerns. Condition at time of disposition: stable SIGNATURE: MD Brett Pickett Res, MD Resident 04/18/181951 Attending Note I evaluated the patient and personally participated in the cardoza components. I agree with the resident's findings and plan as documented and have discussed the case and management of the patient's care with the resident. Pt presenting from OSH for possible SDH vs artifact noted on CT. Pt reports that she was opening car door and accidentally hit herself on the L side of the face. Mild facial pain w/o other complaints. No new visual changes, weakness, numbness, tingling. Trauma consulted, who recommended repeat CT given question of SDH. CT face and C-spine also obtained to evaluate for potential injury. Imaging showing no acute process. Pt stable for d/c. Well-appearing Heart RRR w/o murmurs Lungs CTAB Distal pulses intact Abd soft, NT, ND L maxillary TTP w/ ecchymoses. No other facial TTP/deformity. No gross motor or sensory deficits. CN II-XII intact Signature: Trey Frias MD Date: 04/18/2018 Time: 11:22 PM Trey Frias MD 04/18/18 2324 ED NOTE Observed: 04/17/2018 Status: COMPLETED Source: [facility] 11:02 PM [facility] REPOSITORY HNO ID: [id number] Author: Rob (Rn) TOOTIE Martinez Service: Emergency Medicine Author Type: Registered Nurse Type: ED Notes Filed: 04/17/2018 11:02 PM Note Text: Patient's identity verified by patient stating name, Patient's identity verified by patient stating date, Patient's identity verified by hospital ID bracelet. Patient placed on radiographer cardiac catheterization, patient placed on non-invasive blood pressure monitor, patient placed on continuous pulse oximetry. Alarms set and on, patient tolerating monitoring. ED NOTE Observed: 04/17/2018 Status: COMPLETED Source: [facility] 10:53 PM [facility] REPOSITORY HNO ID: [id number] Author: Edwardo (Medic) Karey Villalobos Service: (none) Author Type: Stationary Steam Engineer and Fighting Vehicle Systems Maintainer Type: ED Notes Filed: 04/17/2018 10:53 PM Note Text: Bed: ED-08 Expected date: 04/17/18 Expected time: 10:47 PM [facility] [place] Care Comments: [facility] care hermelinda transfer CBC W/DIFF, AUTOMATED Collected: 04/17/2018 Status: F Source: [facility] 8:28 PM [facility] REPOSITORY TYPE CODE TESTS RESULT OUT OF RANGE REFERENCE UNITS LAB L100.1000 4.4-11.0 K/mm3 Normal WBC 5.1 LAB L100.1200 4.2-5.4 M/mm3 Normal RBC 4.39 LAB L100.1300 12.0-15.0 g/dl Low HGB 11.2 LAB L100.1400 37-47 % Low HCT 35.6 LAB L100.1500 81-99 fL Normal MCV 81.1 LAB L100.1600 27.0-32.0 pg Low MCH 25.5 LAB L100.1700 32-36 g/gl Low MCHC 31.5 LAB L100.1810 11.6-14.6 % High RDW CV 15.8 LAB L100.1820 35.1-43.9 fl High RDW SD 47.4 LAB L100.1900 150-450 K/mm3 Low PLT 133 LAB L100.2000 6.2-12.0 fl Normal MPV 8.9 LAB L100.2100 47-70 % High NEUT% 74.6 LAB L100.2200 19-41 % Low LY% 16.2 LAB L100.2300 0-10 % Normal MONO% 9.0 LAB L100.2400 0-5 % Normal EO% 0.0 LAB L100.2500 0-1 % Normal BASO% 0.0 LAB L100.2550 0.0-0.9 % Normal IM GRAN % 0.200 Result Comment: IG% - Immature Granulocytes (promyelocytes, myelocytes and metamyelocytes) > 1% indicates that a LEFT SHIFT is Present. LAB L100.2620 2.0-7.7 X10 3/uL Normal Absolute Neut 3.8 LAB L100.2720 0.83-4.51 X10 3/ul Normal Absolute Lymph 0.83 Performed By: #### L100.0100 #### [facility] [employer] [facility] [facility]. [place], [place], [id number] PROTHROMBIN TIME W/INR Collected: 04/17/2018 Status: F Source: [place] 8:28 PM [facility] REPOSITORY TYPE CODE TESTS RESULT OUT OF RANGE REFERENCE UNITS LAB L300.4150 11.7-14.9 SECONDS Normal PROTIME 13.9 LAB L300.4200 Normal INR 1.1 Performed By: #### L300.3900, L300.4310 #### [facility] [address] [place], [place], [id number] PARTIAL THROMBOPLAST Collected: 04/17/2018 Status: F Source: [place] TIME 8:28 PM [facility] REPOSITORY TYPE CODE TESTS RESULT OUT OF RANGE REFERENCE UNITS LAB L300.4310 24.1-36.2 Seconds Normal PTT 30.1 Performed By: #### L300.3900, L300.4310 #### [facility] [address] [place], [address] BASIC METABOLIC Collected: 04/17/2018 Status: F Source: [place] PROFILE (BMP) 8:28 PM [facility] REPOSITORY TYPE CODE TESTS RESULT OUT OF RANGE REFERENCE UNITS LAB L501.0100 74-106 mg/dL High GLU 147 Result Comment: Fasting Glucose result greater than or equal to 126 mg/dL suggests DIABETES MELLITUS per A.D.A. criteria. Please note revised GLUCOSE reference range effective 2017. LAB L501.1000 7-18 mg/dL Normal BUN 14 LAB L501.1100 0.55-1.02 mg/dL Normal CREAT,SERUM 0.73 Result Comment: The validity of the calculated GFR AND GFRAA in patients over 70 years has not been determined. Clinical correlation is essential. LAB L501.1110 >60 mL/min Normal EST GFR 88 Result Comment: Non- GFR Calc LAB L501.1115 >60 mL/min Normal EST GFR - AA 107 Result Comment: GFR Calc LAB L501.1255 ml/min Normal Estimated CRCL 79.28 LAB L501.1300 10-20 RATIO Normal BUN/CRE 19.2 LAB L501.2200 8.5-10 mg/dL Normal .1 CA 8.7 LAB L501.5300 136-14 mmol/L Normal 5 NA 138 LAB L501.5600 3.5-5. mmol/L Normal 1 K 4.0 LAB L501.5900 98-107 mmol/L Normal CL 102 LAB L501.6100 21.0-3 mmol/L Normal 2.0 CO2 28.0 LAB L501.6200 5-15 Normal GAP 8 Performed By: #### L500.2500 #### [facility] [address] [place], [place], [address] BRAIN/HEAD WITHOUT Observed: 04/17/2018 Status: F Source: [place] CONTRAST 5:24 PM [facility] REPOSITORY [facility] Imaging Services [address] [place] [address] Brain/Head without Contrast MR#: [id number] Acct: [id number] Name: EDEL LANG Rep #: [id number] : 1965 F 52 From: Edel Gallegos MD PCP: Terrie Lopez MD Status: PRE ER Study: Brain/Head without Contrast Date of Exam: 04/17/18 Exam# [id number] Ordering Dr: Rob Bey DO STUDY: CT BRAIN WITHOUT CONTRAST REASON FOR EXAM: Female, 52 years old. Status post fall blurry vision RADIATION DOSAGE (If Supplied By Facility): CTDIvol = ( 44.99 ) mGy, DLP = ( 796.11 ) mGycm TECHNIQUE: Transaxial CT imaging of the brain was performed without administration of intravenous contrast material. Individualized dose optimization techniques were used for this CT. COMPARISON: None. FINDINGS: Normal soft tissue structures. Normal calvarium. Normal size ventricles and extra-axial spaces for the patient's age. Normal white matter tracts of the cerebral hemispheres. Normal basal ganglia and thalami. Normal brainstem. Normal cerebellum. There are no findings of an acute ischemic infarction. Normal visualized paranasal sinuses. There is a rim of hyperdensity in the left side temporal region seen only on one view likely represents artifact rather than subdural hemorrhage. This is seen on image #12 of the axial views. CT/Brain/Head without Contrast IMPRESSION: There is a rim of hyperdensity in the left temporal extra- axial region which may represent a small subdural hematoma versus summation artifact. Given clinical history recommend short-term interval follow- up study. There is no significant associated edema. N.B. : The above information has been verbally conveyed by Edel Gallegos MD to , Covering Physician, on 04/17/2018 17:54:27 (ET). Electronically Signed: Edel Gallegos MD at 17:47 EDT Tel , Service support , N.B. : The above information has been verbally conveyed by Edel Gallegos MD to , Covering Physician, on 04/17/2018 17:54:27 (ET). CC: Rob Bey DO; Terrie Lopez MD [employer] Sequestration Plant Operator: Signed EMERGENCY DEPARTMENT Observed: 04/14/2018 Status: F Source: [place] SUMMARY 4:06 PM [facility] REPOSITORY [facility] Medical Records Department [address] [place] [address] Emergency Department Summary 04/14/18 1405 MR#: [id number] Acct: [id number] Name: EDEL LANG Rep #: [id number] : 1965 52 From: Alize Hidalgo MD PCP: Terrie Lopez MD Status: DEP ER - ER Visit Summary Date of Service: 04/14/18 Chief Complaint: [] Migraine headache History of Present Illness: The patient is a 52 F [] has a long history of migraine headaches she gets for the last week she has been suffering from a migraine headache typical of her usual but usually her's symptoms and headaches resolved with her nadolol and other home medications this 1 has not. She has had no fever no cough no runny nose no neck stiffness no numbness weakness paresthesias she does report that about a week ago she had a dizzy spell that resolved. She has had extensive prior evaluation for headaches including multiple brain images visits with headache specialist she has never been told she has a brain tumor or brain aneurysm she has COPD with stable and other than the headache she states she feels at her baseline Physical Examination: [] Her vital signs are within normal range she is in no distress her head exams unremarkable cranial nerve facial exam HEENT exam are negative the neck is very supple the lungs are clear the heart tones are normal the abdomen is soft nontender she is a very large woman abdomen shows no findings upper lower extremities are unremarkable cranial nerves motor exam are negative her NIH is 0 Test Results: [] Emergency Department Course and Treatment: [] Long conversation the patient the family I explained her we could obtain a CT brain imaging for life- threatening cause of the headache she declined that much she simply wants to be treated for the headache she was given morphine Zofran and she will follow with her family physicians I further explained her if she feels of these headaches are becoming more frequent and less responsive to oral home meds she should discuss with her physicians further management options and potential referral to neurology and she will do so Treatment Plan: [] Disposition: [] Home stable Impression: [] migraine headache by history This note was generated with 4Soilsation software. It may contain incorrect words, spelling, and punctuation that were not noted in review of the chart prior to signing ED Disposition - Plan for ED Patient: Chief Complaint: Headache Referrals: Terrie Lopez MD [Primary Care Provider] - What to do if you have Problems For any increased pain, shortness of breath, bleeding, nausea or vomiting, chest pain, or any unexpected problems, contact your Primary Care Provider. Call [facility] ([phone]) or report to the closest Emergency Room. Call 911 if necessary. 04/14/18 1606 <Electronically signed by Alize Hidalgo MD> Date Alize Hidalgo MD Cosigner Signature (If Indicated): Date CC: Terrie Lopez MD DISCHARGE INSTRUCTION Observed: 04/14/2018 Status: F Source: [place] 2:09 PM [facility] REPOSITORY [facility] Medical Records Department [address] [place] [id number] Discharge Instruction 04/14/18 140 MR#: [id number] Acct: [id number] Name: SOFIA LANGORASudha Cunningham Rep #: [id number] : 1965 52 From: Alize Hidalgo MD PCP: Terrie Lopez MD Status: REG ER ED Disposition - Plan for ED Patient: Chief Complaint: Headache Instructions: ED Headache Migraine, ED Cephalgia Unspecified Referrals: Terrie Lopez MD [Primary Care Provider] - What to do if you have Problems For any increased pain, shortness of breath, bleeding, nausea or vomiting, chest pain, or any unexpected problems, contact your Primary Care Provider. Call [facility] ([phone]) or report to the closest Emergency Room. Call 911 if necessary. 04/14/18 1409 <Electronically signed by Alize Hidalgo MD> Date Alize Hidalgo MD Cosigner Signature (If Indicated): Date CC: Terrie Lopez MD PROGRESS Observed: 04/06/2018 Status: COMPLETED Source: [place] 8:23 AM [facility] [place] REPOSITORY O ID: [id number] Author: Hansa (Outside Sales Manager) Podlogar Service: (none) Author Type: Nurse Practitioner Type: Progress Notes Filed: 04/06/2018 9:02 AM Note Text: 04/06/2018 Patient presents with: Recheck: left leg SUBJECTIVE: This is a 52 year old that is here today for Above Complaints. Seen on 04/04 for complaints of left perera redness and swelling. See notes. Started on doxycycline 100 mg twice daily and Us of left lower leg obtained. Guero for DVT. Today she presents for recheck. Still having burning pain in leg, sharp at times at its worse 10/10. Using ultram to assist with some relief. Denies fevers, chills, increased redness, warmth, swelling, ope sores wounds drainage, or red streaking. Tolerating doxycyline without side effects. IMPRESSION: No direct evidence for left lower extremity deep vein thrombosis. Carbon Sequestration Plant Operator: ISIDRO ? Transcribe Date/Time: Apr 04 2018 ?3:06P Dictated by : Kal SHEARER MD This examination was interpreted and the report reviewed and electronically signed by: Kal SHEARER MD on Apr 04 2018 ?3:08PM ?EST Results-Findings * * *Final Report* * * DATE OF EXAM: Apr 04 2018 ?2:59PM ? [facility] ? 1006 ?- ?US DVT LOWER LT ?/ PROCEDURE REASON: multiple diagnoses ?? ? * * * * Physician Interpretation * * * * ?EXAM: US DVT LOWER LT HISTORY: Left calf pain and swelling. PREVIOUS: 07/08/2015. TECHNIQUE: Standard color duplex sonogram of left lower extremity and right common femoral vein using manual compression to evaluate for deep venous thrombosis. ?Images stored in permanent archive. FINDINGS: ?Technically limited exam due to body habitus. ?The visualized deep veins of left lower extremity are sonolucent with satisfactory compression, color flow and augmented wave forms. ?Patent right common femoral vein. PAST MEDICAL HISTORY Diagnosis Date - FIBROMYALGIA - Cellulitis and abscess of unspecified site 11/26 right leg - Depressive disorder, not elsewhere classified - Dysmetabolic syndrome X 08/09/2006 - Esophageal reflux Gastroesophageal reflux - Generalized anxiety disorder - Hx of cystoscopy 09/11/2017 - Localized osteoarthrosis not specified whether primary or secondary, other specified sites bilateral knees - Morbid obesity with BMI of 50.0-59.9, adult (HCC) - Other genital herpes 08/09/2006 - Type II or unspecified type diabetes mellitus without mention of complication, not stated as uncontrolled - Unspecified asthma(493.90) - Unspecified essential hypertension Essential hypertension - Whooping cough, unspecified organism 11/26 ALLERGIES Nia [Fexofenadine Hcl]; Ancef [Cefazolin Sodium]; Clindamycin; Duoderm [Other]; Elavil [Amitriptyline]; Macrobid [Nitrofurantoin Monohyd/M-Cryst]; Norvasc [Amlodipine] MEDICATIONS Current Outpatient Prescriptions: fluconazole (DIFLUCAN) 150 mg tablet 1 tablet today and repeat in 72 hours doxycycline monohydrate (MONODOX) 100 mg capsule Take 1 capsule by mouth twice daily for 10 days. lidocaine (LMX) 4 % cream Apply thin layer to affected area three times a day as needed for pain traMADol (ULTRAM) 50 mg tablet Take 1-2 tablets by mouth every 6 hours as needed for up to 90 days. oxybutynin ER (DITROPAN XL) 15 mg 24 hr Extended Rel Tab TAKE 1 TABLET BY MOUTH ONCE DAILY. ondansetron orally disintegrating (ZOFRAN ODT) 4 mg disintegrating tablet Take 1 tablet by mouth every 8 hours as needed for Nausea/Vomiting. mupirocin (BACTROBAN) 2 % ointment Apply 1 application to affected area once daily. lisinopril (ZESTRIL, PRINIVIL) 5 mg tablet Take 1 tablet by mouth once daily. orphenadrine ER (NORFLEX) 100 mg tablet Take 1 tablet by mouth twice daily as needed for Muscle Spasm. dicyclomine (BENTYL) 20 mg tablet Take 1 tablet by mouth three times daily. nadolol (CORGARD) 80 mg tablet Take 1-2 tablets by mouth once daily. As directed for high blood pressure and migraines meloxicam (MOBIC) 15 mg tablet Take 1 tablet by mouth once daily as needed. Take with food. valACYclovir (VALTREX) 500 mg tablet Take 1 tablet by mouth once daily. divalproex ER (DEPAKOTE ER) 500 mg 24 hr tablet take 1 tablet by mouth daily guaiFENesin (MUCINEX) 600 mg 12 hr tablet Take 2 tablets by mouth twice daily as needed. Benzonatate 200 mg capsule Take 1 capsule by mouth three times daily as needed. Omeprazole Magnesium (PRILOSEC OTC) 20 mg tablet Take 1 tablet by mouth daily before breakfast. 1/2 hr before meal. gabapentin (NEURONTIN) 600 mg tablet TAKE 2 TABLETS THREE TIMES A DAY COMPOUNDED PRESCRIPTION Husam hermosillo Diagnosis: irritated hemorrhoids with some bleeding K64.4 hydrocortisone (ANUSOL-HC) 2.5 % rectal cream 1 application by RECTAL route twice daily. As directed blood sugar diagnostic (BLOOD GLUCOSE TEST) test strip Test blood sugar(s) 3 times daily. Dx: Type 2 DM - Uncontrolled E11.65 Insulin: No glimepiride (AMARYL) 2 mg tablet Take 2 tablets by mouth twice daily with meals. As directed Lancets lancets Test blood sugar(s) 3 times daily. Dx: Type 2 DM - Uncontrolled E11.65 Insulin: No phenazopyridine (PYRIDIUM) 200 mg tablet TO BE TAKEN DIRECTED BY MOUTH ONE(1) TABLET THREE TIMES DAILY X 2 DAYS benzocaine-menthol (CEPACOL) 15-2.6 mg lozg lozenge Take 1 Lozenge by mouth every 3 hours as needed. diazePAM (VALIUM) 5 mg tablet Take 5 mg by mouth once daily as needed. triamcinolone acetonide (KENALOG) 0.1 % cream Apply 1 application to affected area twice daily. For itchy lesions for 2 weeks (torso or extremities) as directed mometasone-formoterol (DULERA) 100-5 mcg/actuation inhaler Inhale 2 Puffs as instructed twice daily. albuterol HFA (VENTOLIN HFA) 90 mcg/actuation inhaler Inhale 2 Puffs as instructed every 4 hours as needed for Wheezing/Shortness of Breath. COMPOUNDED PRESCRIPTION Adaptic dressing for leg ulcers (sizes 1cm diameter, 1cm by 0.5 cm, and 1cm). Needs 30 day supply. Dx: L97.921 fluticasone (FLONASE) 50 mcg/actuation nasal spray Use 2 Sprays in each nostril once daily. blood sugar diagnostic (FREESTYLE LITE STRIPS) test strip Test blood sugar(s) 3 times daily. Dx: Type 2 DM - Controlled E11.9 Insulin: Yes CPAP Initiate CPAP @ 14 cm of water with humidification. EPR setting of 3. Mask (per patient preference) optional chin strap (if indicated) , filters, tubing, humidifier and lifetime supplies. COMPOUNDED PRESCRIPTION Nebulizer for home use. Diagnosis: Asthma exacerbation QUEtiapine (SEROQUEL) 300 mg tablet Take 1 tablet by mouth daily at bedtime. Also takes [address] Patterson. No current facility-administered medications for this visit. Medications and allergies reviewed by this provider. 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 OBJECTIVE: BP 132/72 (BP Site: Left Arm, BP Position: Sitting, BP Cuff Size: Large Adult) Pulse 68 Resp 18 Wt (!) 142.5 kg (314 lb 1.9 oz) BMI 52.27 kg/m? . Vital signs reviewed by this provider. APPEARANCE Well appearing, alert, in no acute distress, well-hydrated, well nourished., Morbidly obese EXTREMITIES:negative findings:extremity pulses equal and symmetric, no evidence of joint effusion, ROM of all joints is normal, no evidence of joint instability, positive findings: edema on right: 2+, pitting at lower calfs, edema on left: 2+, pitting at lower calfs. Bilateral lower extremity with trophic changes with left greater than right. Large healed skin graft with divot area to left lower leg. No redness to left lateal perera today, some swelling noted but improving. No warmth, open wounds, drainage, or red streaking. TTP to palpation to left lateral perera. ASSESSMENT/PLAN: 1. Cellulitis of left anterior lower leg - ICD9: 682.6, ICD10: L03.116 (primary diagnosis) - improving - no red flag exam findings - red flag symptoms discussed, verbalizes understanding - discussed stopping mobic and trying motrin 600-800 mg every 6-8 hours as needed for pain control, patient agreeable - finish entire course of doxycyline - No lymphangetic streaking, this was defined for patient to watch for and to seek medical care immediately if appears - follow-up as needed, to ER with red flag symtpoms 2. Screening for breast cancer - ICD9: V76.10, ICD10: Z12.31 - Encouraged monthly BSE - Follow up for annual exam in one year. - JG SCREENING 3. Encounter for screening fecal occult blood testing - ICD9: V76.51, ICD10: Z12.11 - FECAL OCCULT BLOOD TEST Hansa Gambino, ANGLE.CATH LAB RADIOLOGICAL TECHNOLOGIST Prescription instructions reviewed with patient as applicable. Patient advised if symptoms do not improve or if symptoms worsen sooner, to contact their primary care physician. Potential red flag symptoms discussed with the patient. Reviewed appropriate action plan to take if red flag symptoms occur. Patient agreeable to treatment plan. SAMARIA Observed: 04/06/2018 Status: COMPLETED Source: [place] 8:20 AM [facility] REPOSITORY [facility] LANGEDEL ([id number]) 1965 F Date Time Provider Department 04/06/18 8:20 AM HANSA GAMBINO (ALDO MILLER During your visit today, we recorded the following information about you: Pulse Respiration Blood pressure Weight 68/minute 18/minute 132/72 142.5 kg Hansa Gambino APRN.CNP 04/06/2018 9:02 AM Signed 04/06/2018 Patient presents with: Recheck: left leg SUBJECTIVE: This is a 52 year old that is here today for Above Complaints. Seen on 04/04 for complaints of left perera redness and swelling. See notes. Started on doxycycline 100 mg twice daily and Us of left lower leg obtained. Guero for DVT. Today she presents for recheck. Still having burning pain in leg, sharp at times at its worse 10/10. Using ultram to assist with some relief. Denies fevers, chills, increased redness, warmth, swelling, ope sores wounds drainage, or red streaking. Tolerating doxycyline without side effects. IMPRESSION: No direct evidence for left lower extremity deep vein thrombosis. Carbon Sequestration Plant Operator: ISIDRO ? Transcribe Date/Time: Apr 04 2018 ?3:06P Dictated by : Kal SHEARER MD This examination was interpreted and the report reviewed and electronically signed by: Kal SHEARER MD on Apr 04 2018 ?3:08PM ?EST Results-Findings * * *Final Report* * * DATE OF EXAM: Apr 04 2018 ?2:59PM ? [facility] ? 1006 ?- ?US DVT LOWER LT ?/ PROCEDURE REASON: multiple diagnoses ?? ? * * * * Physician Interpretation * * * * ?EXAM: US DVT LOWER LT HISTORY: Left calf pain and swelling. PREVIOUS: 07/08/2015. TECHNIQUE: Standard color duplex sonogram of left lower extremity and right common femoral vein using manual compression to evaluate for deep venous thrombosis. ?Images stored in permanent archive. FINDINGS: ?Technically limited exam due to body habitus. ?The visualized deep veins of left lower extremity are sonolucent with satisfactory compression, color flow and augmented wave forms. ?Patent right common femoral vein. PAST MEDICAL HISTORY Diagnosis Date - FIBROMYALGIA - Cellulitis and abscess of unspecified site 11/26 right leg - Depressive disorder, not elsewhere classified - Dysmetabolic syndrome X 08/09/2006 - Esophageal reflux Gastroesophageal reflux - Generalized anxiety disorder - Hx of cystoscopy 09/11/2017 - Localized osteoarthrosis not specified whether primary or secondary, other specified sites bilateral knees - Morbid obesity with BMI of 50.0-59.9, adult (HCC) - Other genital herpes 08/09/2006 - Type II or unspecified type diabetes mellitus without mention of complication, not stated as uncontrolled - Unspecified asthma(493.90) - Unspecified essential hypertension Essential hypertension - Whooping cough, unspecified organism 11/26 ALLERGIES Nia [Fexofenadine Hcl]; Ancef [Cefazolin Sodium]; Clindamycin; Duoderm [Other]; Elavil [Amitriptyline]; Macrobid [Nitrofurantoin Monohyd/M-Cryst]; Norvasc [Amlodipine] MEDICATIONS Current Outpatient Prescriptions: fluconazole (DIFLUCAN) 150 mg tablet 1 tablet today and repeat in 72 hours doxycycline monohydrate (MONODOX) 100 mg capsule Take 1 capsule by mouth twice daily for 10 days. lidocaine (LMX) 4 % cream Apply thin layer to affected area three times a day as needed for pain traMADol (ULTRAM) 50 mg tablet Take 1-2 tablets by mouth every 6 hours as needed for up to 90 days. oxybutynin ER (DITROPAN XL) 15 mg 24 hr Extended Rel Tab TAKE 1 TABLET BY MOUTH ONCE DAILY. ondansetron orally disintegrating (ZOFRAN ODT) 4 mg disintegrating tablet Take 1 tablet by mouth every 8 hours as needed for Nausea/Vomiting. mupirocin (BACTROBAN) 2 % ointment Apply 1 application to affected area once daily. lisinopril (ZESTRIL, PRINIVIL) 5 mg tablet Take 1 tablet by mouth once daily. orphenadrine ER (NORFLEX) 100 mg tablet Take 1 tablet by mouth twice daily as needed for Muscle Spasm. dicyclomine (BENTYL) 20 mg tablet Take 1 tablet by mouth three times daily. nadolol (CORGARD) 80 mg tablet Take 1-2 tablets by mouth once daily. As directed for high blood pressure and migraines meloxicam (MOBIC) 15 mg tablet Take 1 tablet by mouth once daily as needed. Take with food. valACYclovir (VALTREX) 500 mg tablet Take 1 tablet by mouth once daily. divalproex ER (DEPAKOTE ER) 500 mg 24 hr tablet take 1 tablet by mouth daily guaiFENesin (MUCINEX) 600 mg 12 hr tablet Take 2 tablets by mouth twice daily as needed. Benzonatate 200 mg capsule Take 1 capsule by mouth three times daily as needed. Omeprazole Magnesium (PRILOSEC OTC) 20 mg tablet Take 1 tablet by mouth daily before breakfast. 1/2 hr before meal. gabapentin (NEURONTIN) 600 mg tablet TAKE 2 TABLETS THREE TIMES A DAY COMPOUNDED PRESCRIPTION Husam hermosillo Diagnosis: irritated hemorrhoids with some bleeding K64.4 hydrocortisone (ANUSOL-HC) 2.5 % rectal cream 1 application by RECTAL route twice daily. As directed blood sugar diagnostic (BLOOD GLUCOSE TEST) test strip Test blood sugar(s) 3 times daily. Dx: Type 2 DM - Uncontrolled E11.65 Insulin: No glimepiride (AMARYL) 2 mg tablet Take 2 tablets by mouth twice daily with meals. As directed Lancets lancets Test blood sugar(s) 3 times daily. Dx: Type 2 DM - Uncontrolled E11.65 Insulin: No phenazopyridine (PYRIDIUM) 200 mg tablet TO BE TAKEN DIRECTED BY MOUTH ONE(1) TABLET THREE TIMES DAILY X 2 DAYS benzocaine-menthol (CEPACOL) 15-2.6 mg lozg lozenge Take 1 Lozenge by mouth every 3 hours as needed. diazePAM (VALIUM) 5 mg tablet Take 5 mg by mouth once daily as needed. triamcinolone acetonide (KENALOG) 0.1 % cream Apply 1 application to affected area twice daily. For itchy lesions for 2 weeks (torso or extremities) as directed mometasone-formoterol (DULERA) 100-5 mcg/actuation inhaler Inhale 2 Puffs as instructed twice daily. albuterol HFA (VENTOLIN HFA) 90 mcg/actuation inhaler Inhale 2 Puffs as instructed every 4 hours as needed for Wheezing/Shortness of Breath. COMPOUNDED PRESCRIPTION Adaptic dressing for leg ulcers (sizes 1cm diameter, 1cm by 0.5 cm, and 1cm). Needs 30 day supply. Dx: L97.921 fluticasone (FLONASE) 50 mcg/actuation nasal spray Use 2 Sprays in each nostril once daily. blood sugar diagnostic (FREESTYLE LITE STRIPS) test strip Test blood sugar(s) 3 times daily. Dx: Type 2 DM - Controlled E11.9 Insulin: Yes CPAP Initiate CPAP @ 14 cm of water with humidification. EPR setting of 3. Mask (per patient preference) optional chin strap (if indicated) , filters, tubing, humidifier and lifetime supplies. COMPOUNDED PRESCRIPTION Nebulizer for home use. Diagnosis: Asthma exacerbation QUEtiapine (SEROQUEL) 300 mg tablet Take 1 tablet by mouth daily at bedtime. Also takes [address] Patterson. No current facility-administered medications for this visit. Medications and allergies reviewed by this provider. 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 OBJECTIVE: BP 132/72 (BP Site: Left Arm, BP Position: Sitting, BP Cuff Size: Large Adult) Pulse 68 Resp 18 Wt (!) 142.5 kg (314 lb 1.9 oz) BMI 52.27 kg/m? . Vital signs reviewed by this provider. APPEARANCE Well appearing, alert, in no acute distress, well- hydrated, well nourished., Morbidly obese EXTREMITIES:negative findings:extremity pulses equal and symmetric, no evidence of joint effusion, ROM of all joints is normal, no evidence of joint instability, positive findings: edema on right: 2+, pitting at lower calfs, edema on left: 2+, pitting at lower calfs. Bilateral lower extremity with trophic changes with left greater than right. Large healed skin graft with divot area to left lower leg. No redness to left lateal perera today, some swelling noted but improving. No warmth, open wounds, drainage, or red streaking. TTP to palpation to left lateral perera. ASSESSMENT/PLAN: 1. Cellulitis of left anterior lower leg - ICD9: 682.6, ICD10: L03.116 (primary diagnosis) - improving - no red flag exam findings - red flag symptoms discussed, verbalizes understanding - discussed stopping mobic and trying motrin 600-800 mg every 6-8 hours as needed for pain control, patient agreeable - finish entire course of doxycyline - No lymphangetic streaking, this was defined for patient to watch for and to seek medical care immediately if appears - follow-up as needed, to ER with red flag symtpoms 2. Screening for breast cancer - ICD9: V76.10, ICD10: Z12.31 - Encouraged monthly BSE - Follow up for annual exam in one year. - JG SCREENING 3. Encounter for screening fecal occult blood testing - ICD9: V76.51, ICD10: Z12.11 - FECAL OCCULT BLOOD TEST Hansa Gambino APRN.CHERIE Prescription instructions reviewed with patient as applicable. Patient advised if symptoms do not improve or if symptoms worsen sooner, to contact their primary care physician. Potential red flag symptoms discussed with the patient. Reviewed appropriate action plan to take if red flag symptoms occur. Patient agreeable to treatment plan. Hansa Gambino APRN.CNP 04/06/2018 8:34 AM Signed If you develop fevers, chills, increased redness, warmth, red-streaking, or swelling of leg go to ER Complete entire course of antibiotics Referring Provider: HANSA GAMBINO (CHERIE) [[id number]] Allergies As of Date: 04/06/2018 Noted Allergy Reaction NIA (FEXOFENADINE HCL) 01/25/2006 12 - Shortness of Breath ANCEF (CEFAZOLIN SODIUM) 01/25/2006 4 - Hives CLINDAMYCIN 01/05/2007 6 - Diarrhea duoderm [Other] 05/21/2007 Comments: severe burning pain at point of contact. No redness. ELAVIL (AMITRIPTYLINE) 04/27/2007 Comments: hallucinations MACROBID (NITROFURANTOIN MONOHYD/*05/15/2007 4 - Hives NORVASC (AMLODIPINE) 12/11/2008 7 - Swelling Date Reviewed: 04/06/2018 Reviewed by: Yessi Peterson LPN - Fully Assessed Reason for Visit: Recheck [92] Cmt: lft leg is more painful per pt woke up at 1am screaming in pain Primary Visit Diagnosis:Cellulitis of left anterior lower leg [L03.116] Other Visit Diagnoses:Screening for breast cancer [Z12.31] Encounter for screening fecal occult blood testing [Z12.11] Order(s):[facility] SCREENING [[id number]] Order #: [id number] FUTURE FECAL OCCULT BLOOD TEST [SQIFOBT] Order #: [id number] FUTURE Prescriptions as of 04/06/2018 Sig: FLUCONAZOLE 150 MG TABLET 1 tablet today and repeat in * DOXYCYCLINE MONOHYDRATE 100 M* Take 1 capsule by mouth twice* LIDOCAINE 4 % TOPICAL CREAM Apply thin layer to affected * TRAMADOL 50 MG TABLET Take 1-2 tablets by mouth nathalie* OXYBUTYNIN CHLORIDE ER 15 MG * TAKE 1 TABLET BY MOUTH ONCE D* ONDANSETRON 4 MG DISINTEGRATI* Take 1 tablet by mouth every * MUPIROCIN 2 % TOPICAL OINTMENT Apply 1 application to affect* LISINOPRIL 5 MG TABLET Take 1 tablet by mouth once d* ORPHENADRINE CITRATE ER 100 M* Take 1 tablet by mouth twice * DICYCLOMINE 20 MG TABLET Take 1 tablet by mouth three * NADOLOL 80 MG TABLET Take 1-2 tablets by mouth onc* MELOXICAM 15 MG TABLET Take 1 tablet by mouth once d* VALACYCLOVIR 500 MG TABLET Take 1 tablet by mouth once d* DIVALPROEX ER 500 MG TABLET,E* take 1 tablet by mouth daily GUAIFENESIN ER 600 MG TABLET,* Take 2 tablets by mouth twice* BENZONATATE 200 MG CAPSULE Take 1 capsule by mouth three* OMEPRAZOLE MAGNESIUM 20 MG TA* Take 1 tablet by mouth daily * GABAPENTIN 600 MG TABLET TAKE 2 TABLETS THREE TIMES A * COMPOUNDED PRESCRIPTION Donlo hermosillo Diagnosis: ir* HYDROCORTISONE 2.5 % TOPICAL * 1 application by RECTAL route* BLOOD SUGAR DIAGNOSTIC STRIPS Test blood sugar(s) 3 times d* GLIMEPIRIDE 2 MG TABLET Take 2 tablets by mouth twice* LANCETS Test blood sugar(s) 3 times d* PHENAZOPYRIDINE 200 MG TABLET TO BE TAKEN DIRECTED BY MO* BENZOCAINE-MENTHOL 15 MG-2.6 * Take 1 Lozenge by mouth every* DIAZEPAM 5 MG TABLET Take 5 mg by mouth once daily* TRIAMCINOLONE ACETONIDE 0.1 %* Apply 1 application to affect* MOMETASONE-FORMOTEROL HFA 100* Inhale 2 Puffs as instructed * ALBUTEROL SULFATE HFA 90 MCG/* Inhale 2 Puffs as instructed * COMPOUNDED PRESCRIPTION Adaptic dressing for leg ulce* FLUTICASONE 50 MCG/ACTUATION * Use 2 Sprays in each nostril * BLOOD SUGAR DIAGNOSTIC STRIPS Test blood sugar(s) 3 times d* CPAP Initiate CPAP @ 14 cm of wate* COMPOUNDED PRESCRIPTION Nebulizer for home use. Diagn* QUETIAPINE 300 MG TABLET Take 1 tablet by mouth daily * Problem List As Of Date 04/06/2018 Noted Resolved ESOPHAGEAL REFLUX [K21.9] More... Unspecified asthma(493.90) [J45.909] 06/02/2017 More... 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 Unspecified vitamin D deficiency [E55.9] INVALID FOR*02/27/2013 GENITAL HERPES NEC [A60.00] INVALID FOR* URGE AND STRESS MIXED INCONTINENCE [N39.46] INVALID FOR* LACERATION -NOT COMPLICATED BREAST [S21.009A] INVALID FOR*02/27/2013 Diabetes (HCC) [E11.9] INVALID FOR* Enthesopathy of unspecified site [M77.9] INVALID FOR*02/27/2013 Adenopathy, Hilar [R59.0] INVALID FOR* Major depressive disorder, recurrent episode (H*INVALID FOR* Abnormal mammogram, unspecified [R92.8] INVALID FOR*06/02/2017 Wound, open, breast [S21.009A] INVALID FOR*02/27/2013 Benign neoplasm of skin of lower limb, includin*INVALID FOR*02/27/2013 Umbilical hernia without mention of obstruction*INVALID FOR*06/02/2017 Ventral hernia, unspecified, without mention of*INVALID FOR*06/02/2017 Anxiety [F41.9] INVALID FOR* Vitamin d deficiency [E55.9] INVALID FOR* Urge incontinence of urine [N39.41] INVALID FOR*06/02/2017 Pain of left lower leg [M79.662] INVALID FOR* Carpal tunnel syndrome of right wrist [G56.01] INVALID FOR*06/02/2017 Morbid obesity with BMI of 45.0-49.9, adult (HC* ABRAM (obstructive sleep apnea) [G47.33] INVALID FOR* More... Left carpal tunnel syndrome [G56.02] INVALID FOR*06/02/2017 Asthma with COPD with exacerbation (HCC) [J44.1*INVALID FOR* HTN (hypertension) [I10] INVALID FOR* Ganglion cyst of finger of right hand [M67.441] INVALID FOR* More... Other instructions from your clinician: If you develop fevers, chills, increased redness, warmth, red-streaking, or swelling of leg go to ER Complete entire course of antibiotics LOS history recorded Follow-up and Disposition History Recorded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 PRESCRIPTION Nebulizer for home use. Diagn* QUETIAPINE 300 MG TABLET Take 1 tablet by mouth daily * Medication notes this encounter DICYCLOMINE 20 MG TABLET >> Terrie Lopez MD 03/01/2018 10:48 AM >> TERRIE LOPEZ MD [facility] Mar 01, 2018 10:48 AM wrong pharmacy LISINOPRIL 5 MG TABLET >> Terrie Lopez MD 03/01/2018 10:48 AM >> TERRIE LOPEZ MD [facility] Mar 01, 2018 10:48 AM wrong pharmacy ORPHENADRINE CITRATE ER 100 MG TABLET,EXTENDED RELEASE >> Terrie Lopez MD 03/01/2018 10:48 AM >> TERRIE LOPEZ MD [facility] Mar 01, 2018 10:48 AM wrong pharmacy GLIMEPIRIDE 2 MG TABLET >> Terrie Lopez MD 03/01/2018 11:01 AM >> TERRIE LOPEZ MD [facility] Mar 01, 2018 11:01 AM Currently taking 2 pills once daily Problem List As Of Date 03/01/2018 Noted Resolved ESOPHAGEAL REFLUX [K21.9] More... Unspecified asthma(493.90) [J45.909] 06/02/2017 More... 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 Unspecified vitamin D deficiency [E55.9] INVALID FOR*02/27/2013 GENITAL HERPES NEC [A60.00] INVALID FOR* URGE AND STRESS MIXED INCONTINENCE [N39.46] INVALID FOR* LACERATION -NOT COMPLICATED BREAST [S21.009A] INVALID FOR*02/27/2013 Diabetes (HCC) [E11.9] INVALID FOR* Enthesopathy of unspecified site [M77.9] INVALID FOR*02/27/2013 Adenopathy, Hilar [R59.0] INVALID FOR* Major depressive disorder, recurrent episode (H*INVALID FOR* Abnormal mammogram, unspecified [R92.8] INVALID FOR*06/02/2017 Wound, open, breast [S21.009A] INVALID FOR*02/27/2013 Benign neoplasm of skin of lower limb, includin*INVALID FOR*02/27/2013 Umbilical hernia without mention of obstruction*INVALID FOR*06/02/2017 Ventral hernia, unspecified, without mention of*INVALID FOR*06/02/2017 Anxiety [F41.9] INVALID FOR* Vitamin d deficiency [E55.9] INVALID FOR* Urge incontinence of urine [N39.41] INVALID FOR*06/02/2017 Pain of left lower leg [M79.662] INVALID FOR* Carpal tunnel syndrome of right wrist [G56.01] INVALID FOR*06/02/2017 Morbid obesity with BMI of 45.0-49.9, adult (HC* ABRAM (obstructive sleep apnea) [G47.33] INVALID FOR* More... Left carpal tunnel syndrome [G56.02] INVALID FOR*06/02/2017 Asthma with COPD with exacerbation (HCC) [J44.1*INVALID FOR* HTN (hypertension) [I10] INVALID FOR* Ganglion cyst of finger of right hand [M67.441] INVALID FOR* More... Prescriptions ordered this encounter Disp Refills Start End DICYCLOMINE 20 MG TABLET 90 t* 11 03/01/2018 03/01/2018 Route: ORAL Sig: Take 1 tablet by mouth three times daily. LISINOPRIL 5 MG TABLET 30 t* 11 03/01/2018 03/01/2018 Route: ORAL Sig: Take 1 tablet by mouth once daily. ORPHENADRINE CITRATE ER 100 MG TABLE* 60 t* 2 03/01/2018 03/01/2018 Route: ORAL Sig: Take 1 tablet by mouth twice daily as needed for Muscle Spasm. MUPIROCIN 2 % TOPICAL OINTMENT 1 Tu* 1 03/01/2018 Route: TOPICAL Sig: Apply 1 application to affected area once daily. LISINOPRIL 5 MG TABLET 30 t* 11 03/01/2018 Route: ORAL Sig: Take 1 tablet by mouth once daily. ORPHENADRINE CITRATE ER 100 MG TABLE* 60 t* 2 03/01/2018 Route: ORAL Sig: Take 1 tablet by mouth twice daily as needed for Muscle Spasm. DICYCLOMINE 20 MG TABLET 90 t* 11 03/01/2018 Route: ORAL Sig: Take 1 tablet by mouth three times daily. SULFAMETHOXAZOLE 800 MG-TRIMETHOPRIM* 20 t* 0 03/01/2018 03/11/2018 Route: ORAL Sig: Take 1 tablet by mouth twice daily for 10 days. FLUCONAZOLE 150 MG TABLET 2 ta* 0 03/01/2018 Si tablet today and repeat in 72 hours TRAMADOL 50 MG TABLET 120 * 2 02/12/2018 03/26/2018 Class: Print RX Cmt: Increased pain due to infection Route: ORAL Sig: Take 1-2 tablets by mouth every 6 hours as needed for up to 42 days. OXYCODONE-ACETAMINOPHEN 5 MG-325 MG * 21 t* 0 03/01/2018 03/08/2018 Class: Print RX Route: ORAL Sig: Take 1 tablet by mouth three times daily as needed for up to 7 days. NADOLOL 80 MG TABLET 56 t* 5 03/01/2018 Route: ORAL Sig: Take 1-2 tablets by mouth once daily. As directed for high blood pressure and migraines Medications Discontinued During This Encounter dicyclomine (BENTYL) 20 mg tablet 84 t* 11 10/06/2017 03/01/2018 Cmt: Maximum Refills Reached Sig: TAKE 1 TABLET THREE TIMES A DAY Disc: Reason for discontinue is not on file. lisinopril (ZESTRIL, PRINIVIL) 5 mg * 30 t* 11 03/16/2017 03/01/2018 Route: ORAL Sig: Take 1 tablet by mouth once daily. Disc: Reason for discontinue is not on file. orphenadrine ER (NORFLEX) 100 mg tab* 60 t* 2 07/18/2017 03/01/2018 Route: ORAL Sig: Take 1 tablet by mouth twice daily as needed for Muscle Spasm. Disc: Reason for discontinue is not on file. predniSONE (DELTASONE) 10 mg tablet 30 t* 0 01/25/2018 03/01/2018 Sig: Take 4 tabs daily x 3 days, then 3 tabs x 3 days, 2 tabs x 3 days, then 1 tab x3 days with food. As directed Disc: Course of therapy completed fluconazole (DIFLUCAN) 150 mg tablet 2 ta* 0 01/09/2018 03/01/2018 Si tablet today and repeat in 72 hours Disc: Reason for discontinue is not on file. tamsulosin ER (FLOMAX) 0.4 mg cp24 0 09/08/2017 03/01/2018 Class: Med Update Route: ORAL Sig: Take 1 capsule by mouth daily at bedtime. Disc: Reason for discontinue is not on file. HYDROcodone-acetaminophen (NORCO) 5-* 20 t* 0 09/07/2017 03/01/2018 Class: Print RX Route: ORAL Sig: Take 1 tablet by mouth every 6 hours as needed for Pain. Disc: Reason for discontinue is not on file. furosemide (LASIX) 20 mg tablet 60 t* 0 09/01/2017 03/01/2018 Route: ORAL Sig: Take 1 tablet by mouth twice daily as needed (for edema/leg swelling). Disc: Reason for discontinue is not on file. hydrOXYzine pamoate (VISTARIL) 50 mg* 90 c* 3 05/20/2013 03/01/2018 Class: Print RX Route: ORAL Sig: Take 1 capsule by mouth three times daily as needed. Disc: Reason for discontinue is not on file. mupirocin (BACTROBAN) 2 % ointment 1 Tu* 1 02/06/2017 03/01/2018 Route: TOPICAL Sig: Apply 1 application to affected area once daily. Disc: Reason for discontinue is not on file. lisinopril (ZESTRIL, PRINIVIL) 5 mg * 30 t* 11 03/01/2018 03/01/2018 Route: ORAL Sig: Take 1 tablet by mouth once daily. Disc: Reason for discontinue is not on file. orphenadrine ER (NORFLEX) 100 mg tab* 60 t* 2 03/01/2018 03/01/2018 Route: ORAL Sig: Take 1 tablet by mouth twice daily as needed for Muscle Spasm. Disc: Reason for discontinue is not on file. dicyclomine (BENTYL) 20 mg tablet 90 t* 11 03/01/2018 03/01/2018 Route: ORAL Sig: Take 1 tablet by mouth three times daily. Disc: Reason for discontinue is not on file. sulfamethoxazole-trimethoprim (BACTR* 20 t* 0 01/03/2018 03/01/2018 Route: ORAL Sig: Take 1 tablet by mouth twice daily for 10 days. Disc: Reason for discontinue is not on file. traMADol (ULTRAM) 50 mg tablet 90 t* 2 01/03/2018 03/01/2018 Class: Print RX Cmt: This is for 90 per 1 month with 2 refills to last 3 months Route: ORAL Sig: Take 1-2 tablets by mouth every 6 hours as needed for up to 90 days. Disc: Reason for discontinue is not on file. oxyCODONE-acetaminophen (PERCOCET) 5* 21 t* 0 01/25/2018 03/01/2018 Class: Print RX Route: ORAL Sig: Take 1 tablet by mouth three times daily as needed for up to 7 days. Disc: Reason for discontinue is not on file. nadolol (CORGARD) 80 mg tablet 28 t* 5 12/27/2017 03/01/2018 Cmt: Maximum Refills Reached Sig: TAKE 1 TABLET BY MOUTH DAILY Disc: Reason for discontinue is not on file. Disposition: Return for As scheduled; Add September 3 month FU. Follow-up and Disposition History Recorded Encounter Status:Closed by TERRIE LOPEZ MD on 03/11/18 URGENT CARE VISIT Observed: 02/18/2018 Status: F Source: [place] RE[place] 1:39 PM [facility] REPOSITORY [facility] [address] [place] [address] [address] [place] [address] OFFICE VISIT Date of Service: 02/18/18 MR#: [id number] Acct: [id number] Name: EDEL LANG Rep #: [id number] : 1965 Provider: HUMZA Melendez Age/Sex: 52/F Location: [facility] Status: Signed Intake Vital Signs02/18/18 Height 5 ft 4 in Intake Visit Reasons: ear pain Chief Complaint: Right ear pain 1 day Is patient in pain?: No Allergies cefazolin sodium [From Anc] Allergy (Verified 02/18/18 13:31) Hives Penicillins Allergy (Verified 02/18/18 13:31) Hives Medications Buspirone HCl 20 mg PO TID PRN PRN 03/05/17 [History Confirmed 02/18/18] Gabapentin [Neurontin] 1,200 mg PO TID 03/05/17 [History Confirmed 02/18/18] Nadolol [Corgard (Beta Torin)] 80 mg PO DAILY 03/05/17 [History Confirmed 02/18/18] Oxybutynin Chloride [Ditropan Xl] 15 mg PO QHS 03/05/17 [History Confirmed 02/18/18] Quetiapine Fumarate [Quetiapine Fumarate ER] 50 mg PO DAILY 03/05/17 [History Confirmed 02/18/18] Quetiapine Fumarate [Quetiapine Fumarate ER] 300 mg PO QHS 03/05/17 [History Confirmed 02/18/18] buPROPion XL [Wellbutrin Xl] 300 mg PO DAILY 03/05/17 [History Confirmed 02/18/18] Glimepiride [Amaryl] 4 mg PO BID 03/20/17 [History Confirmed 02/18/18] Lisinopril 5 mg PO QHS 03/20/17 [History Confirmed 02/18/18] divalproex 125 mg capsule,delayed release sprinkle 250 mg PO BID 02/18/18 [History Confirmed 02/18/18] omeprazole 10 mg capsule,delayed release 10 mg PO ONCE 02/18/18 [History Confirmed 02/18/18] valacyclovir 1 gram tablet 1,000 mg PO QDAY 02/18/18 [History Confirmed 02/18/18] PFSH Social History Smoking Status: Never smoker HPI HPI Chief Complaint: Right ear pain 1 day Details: EDEL LANG, is a 52 F who presents to the office today for right ear pain. She denies ear pain or sore throat or sinus pain. She is unsure what brought her pain on area and she has not traveled by plane. She denies fevers. ROS Const Constitutional: No chills or fever(s) Eyes Eyes: No change in vision ENT ENT: Positive for ear pain; no ear discharge Resp Respiratory: No cough, chest congestion, shortness of breath or wheezing Cardio Cardiology: No chest pain at rest or chest pain with exertion Gastro GI: No abdominal pain, diarrhea, vomiting or nausea/dyspepsia Musc Musculoskeletal: No back pain or abnormal walking Skin Skin: No rash or change in skin color Neuro Neurology: No confusion, abnormal walking or abnormal speech Psych Psychiatric: No confusion Aller/Imm Allergy/Immunologic: No wheezing Exam Const General: healthy appearing, no acute distress Orientation: oriented x3, oriented to person, oriented to place, oriented to time [facility] Head: normocephalic Ears: external ears normal, TM's normal bilaterally, EAC's normal Eyes General: appearance normal, both eyes and all related structures Conjunctivae: conjunctivae normal Sclera: sclerae normal Pupils: PERRL Neck Neck: no lymphadenopathy Thyroid: thyroid normal Chest Chest palpation AND inspection: normal inspection of the chest Resp Effort AND Inspection: normal respiratory effort, no cough, no respiratory distress Auscultation: Bilateral: Clear to Auscultation Cardio Rate: regular rate Rhythm: regular rhythm GI Inspection: normal to inspection Auscultation: normal bowel sounds Palpation: no hepatosplenomegaly, no splenomegaly, no masses Skin General: no pallor Rashes: no rashes Nails: no clubbing Neuro General: oriented x3, gait normal Extrem General: normal to inspection, no pedal edema, no calf tenderness, normal gait, no edema, no cyanosis, no clubbing, no calf tenderness bilaterally, no pedal edema Psych Mood: congruent mood Affect: normal affect Speech and Movement: speech and movement normal Assessment AND Plan Problems 1. Otalgia H92.09 Plan Patient instructed to try warm compresses several times per day begin ibuprofen as needed for ear discomfort. Return to the clinic if symptoms worsen. She was informed that her ear showed no signs of external or middle ear infections. Medications Discontinued: orphenadrine citrate ER Discontinued Reason: Pt n100 mg PO BID PRN PRN MUSCLE SPASMS o longer taking Coding Level of Care Code Off vis,est,level 3 Diagnoses Otalgia H92.09 02/18/18 1339 <Electronically signed by Phil CHING> Date Phil CHING Cosigner Signature: Date (if applicable) CC: [id number] Observed: 02/13/2018 Status: COMPLETED Source: [place] 12:00 AM [facility] REPOSITORY Patient Outreach ([facility]) EDEL LANG ([id number]) 1965 F Date Time Provider Department 02/13/18 TERRIE LOPEZ [facility] During your visit today, we recorded the following information about you: Allergies As of Date: 02/13/2018 Noted Allergy Reaction NIA (FEXOFENADINE HCL) 01/25/2006 12 - Shortness of Breath ANCEF (CEFAZOLIN SODIUM) 01/25/2006 4 - Hives CLINDAMYCIN 01/05/2007 6 - Diarrhea duoderm [Other] 05/21/2007 Comments: severe burning pain at point of contact. No redness. ELAVIL (AMITRIPTYLINE) 04/27/2007 Comments: hallucinations MACROBID (NITROFURANTOIN MONOHYD/*05/15/2007 4 - Hives NORVASC (AMLODIPINE) 12/11/2008 7 - Swelling Date Reviewed: 01/25/2018 Reviewed by: Manuela Mahan Ma - Fully Assessed Visit Diagnosis:Medication management [Z79.899] Prescriptions as of 02/13/2018 Sig: X MELOXICAM 15 MG TABLET Take 1 tablet by mouth once d* X PREDNISONE 10 MG TABLET Take 4 tabs daily x 3 days, t* X OXYCODONE-ACETAMINOPHEN 5 MG-* Take 1 tablet by mouth three * X LIDOCAINE 4 % TOPICAL CREAM Apply thin layer to affected * X VALACYCLOVIR 500 MG TABLET Take 1 tablet by mouth once d* X FLUCONAZOLE 150 MG TABLET 1 tablet today and repeat in * X TRAMADOL 50 MG TABLET Take 1-2 tablets by mouth nathalie* X ONDANSETRON 4 MG DISINTEGRATI* Take 1 tablet by mouth every * X SULFAMETHOXAZOLE 800 MG-TRIME* Take 1 tablet by mouth twice * X NADOLOL 80 MG TABLET TAKE 1 TABLET BY MOUTH DAILY DIVALPROEX ER 500 MG TABLET,E* take 1 tablet by mouth daily X GUAIFENESIN ER 600 MG TABLET,* Take 2 tablets by mouth twice* X BENZONATATE 200 MG CAPSULE Take 1 capsule by mouth three* Patient not taking: Reported on 06/07/2018 OMEPRAZOLE MAGNESIUM 20 MG TA* Take 1 tablet by mouth daily * Patient not taking: Reported on 07/03/2018 GABAPENTIN 600 MG TABLET TAKE 2 TABLETS THREE TIMES A * X DICYCLOMINE 20 MG TABLET TAKE 1 TABLET THREE TIMES A D* X TAMSULOSIN 0.4 MG CAPSULE Take 1 capsule by mouth daily* X HYDROCODONE 5 MG-ACETAMINOPHE* Take 1 tablet by mouth every * X FUROSEMIDE 20 MG TABLET Take 1 tablet by mouth twice * HYDROCORTISONE 2.5 % TOPICAL * 1 application by RECTAL route* LANCETS Test blood sugar(s) 3 times d* X COMPOUNDED PRESCRIPTION Donlo hermosillo Diagnosis: ir* X BLOOD SUGAR DIAGNOSTIC STRIPS Test blood sugar(s) 3 times d* X GLIMEPIRIDE 2 MG TABLET Take 2 tablets by mouth twice* X PHENAZOPYRIDINE 200 MG TABLET TO BE TAKEN DIRECTED BY MO* BENZOCAINE-MENTHOL 15 MG-2.6 * Take 1 Lozenge by mouth every* Patient not taking: Reported on 06/07/2018 X ORPHENADRINE CITRATE ER 100 M* Take 1 tablet by mouth twice * DIAZEPAM 5 MG TABLET Take 10 mg by mouth once kala* TRIAMCINOLONE ACETONIDE 0.1 %* Apply 1 application to affect* X OXYBUTYNIN CHLORIDE ER 15 MG * TAKE 1 TABLET BY MOUTH ONCE D* X LISINOPRIL 5 MG TABLET Take 1 tablet by mouth once d* MOMETASONE-FORMOTEROL HFA 100* Inhale 2 Puffs as instructed * X MUPIROCIN 2 % TOPICAL OINTMENT Apply 1 application to affect* ALBUTEROL SULFATE HFA 90 MCG/* Inhale 2 Puffs as instructed * X COMPOUNDED PRESCRIPTION Adaptic dressing for leg ulce* X FLUTICASONE 50 MCG/ACTUATION * Use 2 Sprays in each nostril * X BLOOD SUGAR DIAGNOSTIC STRIPS Test blood sugar(s) 3 times d* CPAP Initiate CPAP @ 14 cm of wate* Patient not taking: Reported on 08/01/2018 COMPOUNDED PRESCRIPTION Nebulizer for home use. Diagn* QUETIAPINE 300 MG TABLET Take 1 tablet by mouth daily * Patient taking differently: Take 300 mg by mouth daily at* X HYDROXYZINE PAMOATE 50 MG CAP* Take 1 capsule by mouth three* Problem List As Of Date 02/13/2018 Noted Resolved ESOPHAGEAL REFLUX [K21.9] More... Unspecified asthma(493.90) [J45.909] 06/02/2017 More... 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 Unspecified vitamin D deficiency [E55.9] INVALID FOR*02/27/2013 GENITAL HERPES NEC [A60.00] INVALID FOR* URGE AND STRESS MIXED INCONTINENCE [N39.46] INVALID FOR* LACERATION -NOT COMPLICATED BREAST [S21.009A] INVALID FOR*02/27/2013 Diabetes (HCC) [E11.9] INVALID FOR* Enthesopathy of unspecified site [M77.9] INVALID FOR*02/27/2013 Adenopathy, Hilar [R59.0] INVALID FOR* Major depressive disorder, recurrent episode (H*INVALID FOR* Abnormal mammogram, unspecified [R92.8] INVALID FOR*06/02/2017 Wound, open, breast [S21.009A] INVALID FOR*02/27/2013 Benign neoplasm of skin of lower limb, includin*INVALID FOR*02/27/2013 Umbilical hernia without mention of obstruction*INVALID FOR*06/02/2017 Ventral hernia, unspecified, without mention of*INVALID FOR*06/02/2017 Anxiety [F41.9] INVALID FOR* Vitamin d deficiency [E55.9] INVALID FOR* Urge incontinence of urine [N39.41] INVALID FOR*06/02/2017 Pain of left lower leg [M79.662] INVALID FOR* Carpal tunnel syndrome of right wrist [G56.01] INVALID FOR*06/02/2017 Morbid obesity with BMI of 45.0-49.9, adult (HC* ABRAM (obstructive sleep apnea) [G47.33] INVALID FOR* More... Left carpal tunnel syndrome [G56.02] INVALID FOR*06/02/2017 Asthma with COPD with exacerbation (HCC) [J44.1*INVALID FOR* HTN (hypertension) [I10] INVALID FOR* Ganglion cyst of finger of right hand [M67.441] INVALID FOR* More... Encounter Status:Closed by YULIA PRODUSER on 08/31/18 PROGRESS Observed: 01/25/2018 Status: COMPLETED Source: [place] 10:00 AM [facility] [place] REPOSITORY HNO ID: [id number] Author: Terrie Lopez Service: (none) Author Type: Physician Type: Progress Notes Filed: 01/25/2018 11:40 PM Note Text: Patient presents for DM SMA with Dr. Lopez and Licha Moralez, JennaD GOALS: A1c < 7% Edel Lang is a 52 year old female was last seen by PCP, Dr. Lopez on 01/03/18. At last PCP visit patient was continued on current regimen. Doing well on glimeperide. Doing better with diet. Portion control. Smaller plate Range 98 to 120 usually. Pulled out back so more pain recently. Been a while. Stressors with another client committed suicide. ? Patient denies CP, SOB, AG, blurred vision, dizziness or lightheadedness ? Patient denies symptoms of hypoglycemia (sweating, anxiety, palpitations, hunger, and tremor) ? Patient denies symptoms hyperglycemia (polyuria, polydipsia) ? Patient denies potential medication adverse effects ALLERGIES Allergen Reactions - Nia [Fexofenadi* Shortness of Breath - Ancef [Cefazolin So* Hives - Clindamycin Diarrhea - Elavil [Amitriptyli* hallucinations - Macrobid [Nitrofura* Hives - Norvasc [Amlodipine] Swelling - Duoderm [Other] severe burning pain at point of contact. No redness. PAST MEDICAL HISTORY Diagnosis Date - FIBROMYALGIA - Cellulitis and abscess of unspecified site 11/26 right leg - Depressive disorder, not elsewhere classified - Dysmetabolic syndrome X 08/09/2006 - Esophageal reflux Gastroesophageal reflux - Generalized anxiety disorder - Hx of cystoscopy 09/11/2017 - Localized osteoarthrosis not specified whether primary or secondary, other specified sites bilateral knees - Morbid obesity with BMI of 50.0-59.9, adult (HCC) - Other genital herpes 08/09/2006 - Type II or unspecified type diabetes mellitus without mention of complication, not stated as uncontrolled - Unspecified asthma(493.90) - Unspecified essential hypertension Essential hypertension - Whooping cough, unspecified organism 11/26 Current Outpatient Prescriptions: lidocaine (LMX) 4 % cream Apply thin layer to affected area three times a day as needed for pain valACYclovir (VALTREX) 500 mg tablet Take 1 tablet by mouth once daily. traMADol (ULTRAM) 50 mg tablet Take 1-2 tablets by mouth every 6 hours as needed for up to 90 days. ondansetron orally disintegrating (ZOFRAN ODT) 4 mg disintegrating tablet Take 1 tablet by mouth every 8 hours as needed for Nausea/Vomiting. divalproex ER (DEPAKOTE ER) 500 mg 24 hr tablet take 1 tablet by mouth daily Omeprazole Magnesium (PRILOSEC OTC) 20 mg tablet Take 1 tablet by mouth daily before breakfast. 1/2 hr before meal. gabapentin (NEURONTIN) 600 mg tablet TAKE 2 TABLETS THREE TIMES A DAY dicyclomine (BENTYL) 20 mg tablet TAKE 1 TABLET THREE TIMES A DAY COMPOUNDED PRESCRIPTION Donut pillalek Diagnosis: irritated hemorrhoids with some bleeding K64.4 hydrocortisone (ANUSOL-HC) 2.5 % rectal cream 1 application by RECTAL route twice daily. As directed blood sugar diagnostic (BLOOD GLUCOSE TEST) test strip Test blood sugar(s) 3 times daily. Dx: Type 2 DM - Uncontrolled E11.65 Insulin: No glimepiride (AMARYL) 2 mg tablet Take 2 tablets by mouth twice daily with meals. As directed orphenadrine ER (NORFLEX) 100 mg tablet Take 1 tablet by mouth twice daily as needed for Muscle Spasm. benzocaine-menthol (CEPACOL) 15-2.6 mg lozg lozenge Take 1 Lozenge by mouth every 3 hours as needed. diazePAM (VALIUM) 5 mg tablet Take 5 mg by mouth once daily as needed. oxybutynin ER (DITROPAN XL) 15 mg 24 hr Extended Rel Tab TAKE 1 TABLET BY MOUTH ONCE DAILY. lisinopril (ZESTRIL, PRINIVIL) 5 mg tablet Take 1 tablet by mouth once daily. mometasone-formoterol (DULERA) 100-5 mcg/actuation inhaler Inhale 2 Puffs as instructed twice daily. mupirocin (BACTROBAN) 2 % ointment Apply 1 application to affected area once daily. albuterol HFA (VENTOLIN HFA) 90 mcg/actuation inhaler Inhale 2 Puffs as instructed every 4 hours as needed for Wheezing/Shortness of Breath. fluticasone (FLONASE) 50 mcg/actuation nasal spray Use 2 Sprays in each nostril once daily. blood sugar diagnostic (FREESTYLE LITE STRIPS) test strip Test blood sugar(s) 3 times daily. Dx: Type 2 DM - Controlled E11.9 Insulin: Yes COMPOUNDED PRESCRIPTION Nebulizer for home use. Diagnosis: Asthma exacerbation QUEtiapine (SEROQUEL) 300 mg tablet Take 1 tablet by mouth daily at bedtime. Also takes [address] Patterson. hydrOXYzine pamoate (VISTARIL) 50 mg capsule Take 1 capsule by mouth three times daily as needed. fluconazole (DIFLUCAN) 150 mg tablet 1 tablet today and repeat in 72 hours nadolol (CORGARD) 80 mg tablet TAKE 1 TABLET BY MOUTH DAILY guaiFENesin (MUCINEX) 600 mg 12 hr tablet Take 2 tablets by mouth twice daily as needed. Benzonatate 200 mg capsule Take 1 capsule by mouth three times daily as needed. tamsulosin ER (FLOMAX) 0.4 mg cp24 Take 1 capsule by mouth daily at bedtime. HYDROcodone-acetaminophen (NORCO) 5-325 mg per tablet Take 1 tablet by mouth every 6 hours as needed for Pain. furosemide (LASIX) 20 mg tablet Take 1 tablet by mouth twice daily as needed (for edema/leg swelling). Lancets lancets Test blood sugar(s) 3 times daily. Dx: Type 2 DM - Uncontrolled E11.65 Insulin: No phenazopyridine (PYRIDIUM) 200 mg tablet TO BE TAKEN DIRECTED BY MOUTH ONE(1) TABLET THREE TIMES DAILY X 2 DAYS triamcinolone acetonide (KENALOG) 0.1 % cream Apply 1 application to affected area twice daily. For itchy lesions for 2 weeks (torso or extremities) as directed COMPOUNDED PRESCRIPTION Adaptic dressing for leg ulcers (sizes 1cm diameter, 1cm by 0.5 cm, and 1cm). Needs 30 day supply. Dx: L97.921 CPAP Initiate CPAP @ 14 cm of water with humidification. EPR setting of 3. Mask (per patient preference) optional chin strap (if indicated) , filters, tubing, humidifier and lifetime supplies. No current facility-administered medications for this visit. VITALS: BP 92/61 Pulse 63 Resp 14 Wt 135.6 kg (299 lb) BMI 49.76 kg/m2 Last 3 Encounter BP Readings: Date: BP: 01/25/2018 92/61 01/12/2018 120/74 01/09/2018 110/70 Wt: 137.5 kg (303 lb 3.2 oz) BMI: 50.46 kg/(m2) Last 5 Encounter Wt Readings: Date: Wt: 01/25/2018 135.6 kg (299 lb) 01/12/2018 137.5 kg (303 lb 3.2 oz) 01/09/2018 135.6 kg (299 lb) 01/03/2018 133.4 kg (294 lb) 11/26/2017 130.6 kg (288 lb) LABS Lab Results Component Value Date HBA1C 7.0 09/28/2017 HBA1C 7.4 05/11/2017 HBA1C 7.7 03/06/2017 HBA1C 6.3 12/17/2015 CMP: Glucose 141 09/28/2017 BUN 16 09/28/2017 Creatinine 0.93 09/28/2017 Sodium 138 09/28/2017 Potassium 4.5 09/28/2017 Chloride 97 09/28/2017 CO2 26 09/28/2017 Protein, Total 7.5 09/28/2017 Albumin 3.5 09/28/2017 Calcium 9.3 09/28/2017 Alkaline Phosphatase 71 09/28/2017 Bilirubin, Total 0.4 09/28/2017 AST 24 09/28/2017 ALT 20 09/28/2017 Estimated Creatinine Clearance: 96.5 mL/min (based on Cr of 0.93). Last Lipid Panel Lab Results Component Value Date CHOL 113 09/28/2017 Lab Results Component Value Date HDL 31 09/28/2017 Lab Results Component Value Date LDL 59 09/28/2017 Lab Results Component Value Date TG 114 09/28/2017 Albumin/Creat Ratio (mg/g) Date Value 05/11/2017 Not calculated ASSESSMENT/PLAN: 1. Type 2 diabetes mellitus without complication, without long-term current use of insulin ([facility]) - ICD9: 250.00, ICD10: E11.9 (primary diagnosis) Controlled. - Continue current medications - Blood glucose monitoring on a once a day schedule 2. Back strain, sequela Recurrent strain discussed. Will try to treat without steroid but if pain not responding to rest, heat or ice, muscle relaxant and short course of prn percocet, can treat with prednisone. Can try lower dose as discussed (20 mg once daily for 4 days) or usual taper if pain more severe. Further evaluation and treatment as indicated. - predniSONE (DELTASONE) 10 mg tablet; Take 4 tabs daily x 3 days, then 3 tabs x 3 days, 2 tabs x 3 days, then 1 tab x3 days with food. As directed Dispense: 30 tablet; Refill: 0 - oxyCODONE-acetaminophen (PERCOCET) 5-325 mg tablet; Take 1 tablet by mouth three times daily as needed for up to 7 days. Dispense: 21 tablet; Refill: 0 3. Acute midline low back pain without sciatica As noted above. Further evaluation and treatment as indicated. - oxyCODONE-acetaminophen (PERCOCET) 5-325 mg tablet; Take 1 tablet by mouth three times daily as needed for up to 7 days. Dispense: 21 tablet; Refill: 0 4. Essential hypertension Discussed that BP running on the low side. Reviewed how to improve BP with drinking 2 cups of water within 5 minutes. May have some salty food to help improve BP. States that she drinks plenty of water daily. Discussed can decrease BP med(s) if BPs staying low. 5. Low HDL (under 40) Reviewed that LDL runs low. Would avoid statin. Discussed diet with omega 3 oils to improve HDL 6. Morbid obesity with BMI of 45.0-49.9, adult (HCC) Needs to keep working on diet and exercise with lifestyle changes for effective weight loss. Patient is scheduled to see PCP 03/01/18. Patient to return to clinic for PharmD f/u as requested by patient or PCP. Patient verbalized understanding of instructions. Dr. Lopez and Licha Moralez, JennaD Discussed with the group healthy diet to help control blood sugars as well as lose weight. Reviewed need to pair proteins with carbs to help control sugars. Discussed claudia seeds as good source of protein, fiber, omega 3 oils and iron. The patient was seen, chart reviewed and I concur with the above evaluation and plan. Reviewed with [facility] group management of DM. Note that patient was seen one on one after [facility] to discuss issues with back pain since not related to DM except for will need to monitor sugars closely if takes the prednisone. Terrie Lopez MD CNOV Observed: 01/25/2018 Status: COMPLETED Source: [place] 10:00 AM [facility] REPOSITORY Office Visit (INTMWS) EDEL LANG ([id number]) 1965 F Date Time Provider Department 01/25/18 10:00 AM TERRIE LOPEZ [facility] During your visit today, we recorded the following information about you: Pulse Respiration Blood pressure Weight 63/minute 14/minute 92/61 135.6 kg Terrie Lopez MD 01/25/2018 11:40 PM Signed Patient presents for DM SMA with Dr. Lopez and Licha Moralez PharmD GOALS: A1c ANDlt; 7% Edel Lang is a 52 year old female was last seen by PCP, Dr. Lopez on 01/03/18. At last PCP visit patient was continued on current regimen. Doing well on glimeperide. Doing better with diet. Portion control. Smaller plate Range 98 to 120 usually. Pulled out back so more pain recently. Been a while. Stressors with another client committed suicide. ? Patient denies CP, SOB, AG, blurred vision, dizziness or lightheadedness ? Patient denies symptoms of hypoglycemia (sweating, anxiety, palpitations, hunger, and tremor) ? Patient denies symptoms hyperglycemia (polyuria, polydipsia) ? Patient denies potential medication adverse effects ALLERGIES Allergen Reactions - Nia [Fexofenadi* Shortness of Breath - Ancef [Cefazolin So* Hives - Clindamycin Diarrhea - Elavil [Amitriptyli* hallucinations - Macrobid [Nitrofura* Hives - Norvasc [Amlodipine] Swelling - Duoderm [Other] severe burning pain at point of contact. No redness. PAST MEDICAL HISTORY Diagnosis Date - FIBROMYALGIA - Cellulitis and abscess of unspecified site 11/26 right leg - Depressive disorder, not elsewhere classified - Dysmetabolic syndrome X 08/09/2006 - Esophageal reflux Gastroesophageal reflux - Generalized anxiety disorder - Hx of cystoscopy 09/11/2017 - Localized osteoarthrosis not specified whether primary or secondary, other specified sites bilateral knees - Morbid obesity with BMI of 50.0-59.9, adult (HCC) - Other genital herpes 08/09/2006 - Type II or unspecified type diabetes mellitus without mention of complication, not stated as uncontrolled - Unspecified asthma(493.90) - Unspecified essential hypertension Essential hypertension - Whooping cough, unspecified organism 11/26 Current Outpatient Prescriptions: lidocaine (LMX) 4 % cream Apply thin layer to affected area three times a day as needed for pain valACYclovir (VALTREX) 500 mg tablet Take 1 tablet by mouth once daily. traMADol (ULTRAM) 50 mg tablet Take 1-2 tablets by mouth every 6 hours as needed for up to 90 days. ondansetron orally disintegrating (ZOFRAN ODT) 4 mg disintegrating tablet Take 1 tablet by mouth every 8 hours as needed for Nausea/Vomiting. divalproex ER (DEPAKOTE ER) 500 mg 24 hr tablet take 1 tablet by mouth daily Omeprazole Magnesium (PRILOSEC OTC) 20 mg tablet Take 1 tablet by mouth daily before breakfast. 1/2 hr before meal. gabapentin (NEURONTIN) 600 mg tablet TAKE 2 TABLETS THREE TIMES A DAY dicyclomine (BENTYL) 20 mg tablet TAKE 1 TABLET THREE TIMES A DAY COMPOUNDED PRESCRIPTION Husam hermosillo Diagnosis: irritated hemorrhoids with some bleeding K64.4 hydrocortisone (ANUSOL-HC) 2.5 % rectal cream 1 application by RECTAL route twice daily. As directed blood sugar diagnostic (BLOOD GLUCOSE TEST) test strip Test blood sugar(s) 3 times daily. Dx: Type 2 DM - Uncontrolled E11.65 Insulin: No glimepiride (AMARYL) 2 mg tablet Take 2 tablets by mouth twice daily with meals. As directed orphenadrine ER (NORFLEX) 100 mg tablet Take 1 tablet by mouth twice daily as needed for Muscle Spasm. benzocaine-menthol (CEPACOL) 15-2.6 mg lozg lozenge Take 1 Lozenge by mouth every 3 hours as needed. diazePAM (VALIUM) 5 mg tablet Take 5 mg by mouth once daily as needed. oxybutynin ER (DITROPAN XL) 15 mg 24 hr Extended Rel Tab TAKE 1 TABLET BY MOUTH ONCE DAILY. lisinopril (ZESTRIL, PRINIVIL) 5 mg tablet Take 1 tablet by mouth once daily. mometasone-formoterol (DULERA) 100-5 mcg/actuation inhaler Inhale 2 Puffs as instructed twice daily. mupirocin (BACTROBAN) 2 % ointment Apply 1 application to affected area once daily. albuterol HFA (VENTOLIN HFA) 90 mcg/actuation inhaler Inhale 2 Puffs as instructed every 4 hours as needed for Wheezing/Shortness of Breath. fluticasone (FLONASE) 50 mcg/actuation nasal spray Use 2 Sprays in each nostril once daily. blood sugar diagnostic (FREESTYLE LITE STRIPS) test strip Test blood sugar(s) 3 times daily. Dx: Type 2 DM - Controlled E11.9 Insulin: Yes COMPOUNDED PRESCRIPTION Nebulizer for home use. Diagnosis: Asthma exacerbation QUEtiapine (SEROQUEL) 300 mg tablet Take 1 tablet by mouth daily at bedtime. Also takes [address] Patterson. hydrOXYzine pamoate (VISTARIL) 50 mg capsule Take 1 capsule by mouth three times daily as needed. fluconazole (DIFLUCAN) 150 mg tablet 1 tablet today and repeat in 72 hours nadolol (CORGARD) 80 mg tablet TAKE 1 TABLET BY MOUTH DAILY guaiFENesin (MUCINEX) 600 mg 12 hr tablet Take 2 tablets by mouth twice daily as needed. Benzonatate 200 mg capsule Take 1 capsule by mouth three times daily as needed. tamsulosin ER (FLOMAX) 0.4 mg cp24 Take 1 capsule by mouth daily at bedtime. HYDROcodone-acetaminophen (NORCO) 5-325 mg per tablet Take 1 tablet by mouth every 6 hours as needed for Pain. furosemide (LASIX) 20 mg tablet Take 1 tablet by mouth twice daily as needed (for edema/leg swelling). Lancets lancets Test blood sugar(s) 3 times daily. Dx: Type 2 DM - Uncontrolled E11.65 Insulin: No phenazopyridine (PYRIDIUM) 200 mg tablet TO BE TAKEN DIRECTED BY MOUTH ONE(1) TABLET THREE TIMES DAILY X 2 DAYS triamcinolone acetonide (KENALOG) 0.1 % cream Apply 1 application to affected area twice daily. For itchy lesions for 2 weeks (torso or extremities) as directed COMPOUNDED PRESCRIPTION Adaptic dressing for leg ulcers (sizes 1cm diameter, 1cm by 0.5 cm, and 1cm). Needs 30 day supply. Dx: L97.921 CPAP Initiate CPAP @ 14 cm of water with humidification. EPR setting of 3. Mask (per patient preference) optional chin strap (if indicated) , filters, tubing, humidifier and lifetime supplies. No current facility-administered medications for this visit. VITALS: BP 92/61 Pulse 63 Resp 14 Wt 135.6 kg (299 lb) BMI 49.76 kg/m2 Last 3 Encounter BP Readings: Date: BP: 01/25/2018 92/61 01/12/2018 120/74 01/09/2018 110/70 Wt: 137.5 kg (303 lb 3.2 oz) BMI: 50.46 kg/(m2) Last 5 Encounter Wt Readings: Date: Wt: 01/25/2018 135.6 kg (299 lb) 01/12/2018 137.5 kg (303 lb 3.2 oz) 01/09/2018 135.6 kg (299 lb) 01/03/2018 133.4 kg (294 lb) 11/26/2017 130.6 kg (288 lb) LABS Lab Results Component Value Date HBA1C 7.0 09/28/2017 HBA1C 7.4 05/11/2017 HBA1C 7.7 03/06/2017 HBA1C 6.3 12/17/2015 CMP: Glucose 141 09/28/2017 BUN 16 09/28/2017 Creatinine 0.93 09/28/2017 Sodium 138 09/28/2017 Potassium 4.5 09/28/2017 Chloride 97 09/28/2017 CO2 26 09/28/2017 Protein, Total 7.5 09/28/2017 Albumin 3.5 09/28/2017 Calcium 9.3 09/28/2017 Alkaline Phosphatase 71 09/28/2017 Bilirubin, Total 0.4 09/28/2017 AST 24 09/28/2017 ALT 20 09/28/2017 Estimated Creatinine Clearance: 96.5 mL/min (based on Cr of 0.93). Last Lipid Panel Lab Results Component Value Date CHOL 113 09/28/2017 Lab Results Component Value Date HDL 31 09/28/2017 Lab Results Component Value Date LDL 59 09/28/2017 Lab Results Component Value Date TG 114 09/28/2017 Albumin/Creat Ratio (mg/g) Date Value 05/11/2017 Not calculated ASSESSMENT/PLAN: 1. Type 2 diabetes mellitus without complication, without long-term current use of insulin (HCC) - ICD9: 250.00, ICD10: E11.9 (primary diagnosis) Controlled. - Continue current medications - Blood glucose monitoring on a once a day schedule 2. Back strain, sequela Recurrent strain discussed. Will try to treat without steroid but if pain not responding to rest, heat or ice, muscle relaxant and short course of prn percocet, can treat with prednisone. Can try lower dose as discussed (20 mg once daily for 4 days) or usual taper if pain more severe. Further evaluation and treatment as indicated. - predniSONE (DELTASONE) 10 mg tablet; Take 4 tabs daily x 3 days, then 3 tabs x 3 days, 2 tabs x 3 days, then 1 tab x3 days with food. As directed Dispense: 30 tablet; Refill: 0 - oxyCODONE-acetaminophen (PERCOCET) 5-325 mg tablet; Take 1 tablet by mouth three times daily as needed for up to 7 days. Dispense: 21 tablet; Refill: 0 3. Acute midline low back pain without sciatica As noted above. Further evaluation and treatment as indicated. - oxyCODONE-acetaminophen (PERCOCET) 5-325 mg tablet; Take 1 tablet by mouth three times daily as needed for up to 7 days. Dispense: 21 tablet; Refill: 0 4. Essential hypertension Discussed that BP running on the low side. Reviewed how to improve BP with drinking 2 cups of water within 5 minutes. May have some salty food to help improve BP. States that she drinks plenty of water daily. Discussed can decrease BP med(s) if BPs staying low. 5. Low HDL (under 40) Reviewed that LDL runs low. Would avoid statin. Discussed diet with omega 3 oils to improve HDL 6. Morbid obesity with BMI of 45.0-49.9, adult (HCC) Needs to keep working on diet and exercise with lifestyle changes for effective weight loss. Patient is scheduled to see PCP 03/01/18. Patient to return to clinic for PharmD f/u as requested by patient or PCP. Patient verbalized understanding of instructions. Dr. Lopez and Licha Moralez, JennaD Discussed with the group healthy diet to help control blood sugars as well as lose weight. Reviewed need to pair proteins with carbs to help control sugars. Discussed claudia seeds as good source of protein, fiber, omega 3 oils and iron. The patient was seen, chart reviewed and I concur with the above evaluation and plan. Reviewed with [facility] group management of DM. Note that patient was seen one on one after [facility] to discuss issues with back pain since not related to DM except for will need to monitor sugars closely if takes the prednisone. Terrie Lopez MD Referring Provider: TERRIE LOPEZ [[id number]] Allergies As of Date: 01/25/2018 Noted Allergy Reaction NIA (FEXOFENADINE HCL) 01/25/2006 12 - Shortness of Breath ANCEF (CEFAZOLIN SODIUM) 01/25/2006 4 - Hives CLINDAMYCIN 01/05/2007 6 - Diarrhea ELAVIL (AMITRIPTYLINE) 04/27/2007 Comments: hallucinations MACROBID (NITROFURANTOIN MONOHYD/*05/15/2007 4 - Hives NORVASC (AMLODIPINE) 12/11/2008 7 - Swelling duoderm [Other] 05/21/2007 Comments: severe burning pain at point of contact. No redness. Date Reviewed: 01/25/2018 Reviewed by: Manuela Mahan Ma - Fully Assessed Reason for Visit: SMA-Previsit Assessment [3649] Primary Visit Diagnosis:Type 2 diabetes mellitus without complication, without long-term current use of insulin ([facility]) [E11.9] Other Visit Diagnoses:Back strain, sequela [S39.012S] Acute midline low back pain without sciatica [M54.5] Essential hypertension [I10] Comment:Noted running low today Low HDL (under 40) [E78.6] Morbid obesity with BMI of 45.0-49.9, adult ([facility]) [E66.01, Z68.42] Order(s):meloxicam (MOBIC) 15 mg tabletTake 1 tablet by mouth once daily as needed. Take with food.Disp: Rfl: predniSONE (DELTASONE) 10 mg tabletTake 4 tabs daily x 3 days, then 3 tabs x 3 days, 2 tabs x 3 days, then 1 tab x3 days with food. As directedDisp: 30 tabletRfl: 0 oxyCODONE-acetaminophen (PERCOCET) 5-325 mg tabletTake 1 tablet by mouth three times daily as needed for up to 7 days.Disp: 21 tabletRfl: 0 Prescriptions as of 01/25/2018 Sig: LIDOCAINE 4 % TOPICAL CREAM Apply thin layer to affected * VALACYCLOVIR 500 MG TABLET Take 1 tablet by mouth once d* TRAMADOL 50 MG TABLET Take 1-2 tablets by mouth nathalie* ONDANSETRON 4 MG DISINTEGRATI* Take 1 tablet by mouth every * DIVALPROEX ER 500 MG TABLET,E* take 1 tablet by mouth daily OMEPRAZOLE MAGNESIUM 20 MG TA* Take 1 tablet by mouth daily * GABAPENTIN 600 MG TABLET TAKE 2 TABLETS THREE TIMES A * DICYCLOMINE 20 MG TABLET TAKE 1 TABLET THREE TIMES A D* COMPOUNDED PRESCRIPTION Donlo hermosillo Diagnosis: ir* HYDROCORTISONE 2.5 % TOPICAL * 1 application by RECTAL route* BLOOD SUGAR DIAGNOSTIC STRIPS Test blood sugar(s) 3 times d* GLIMEPIRIDE 2 MG TABLET Take 2 tablets by mouth twice* ORPHENADRINE CITRATE ER 100 M* Take 1 tablet by mouth twice * BENZOCAINE-MENTHOL 15 MG-2.6 * Take 1 Lozenge by mouth every* DIAZEPAM 5 MG TABLET Take 5 mg by mouth once daily* OXYBUTYNIN CHLORIDE ER 15 MG * TAKE 1 TABLET BY MOUTH ONCE D* LISINOPRIL 5 MG TABLET Take 1 tablet by mouth once d* MOMETASONE-FORMOTEROL HFA 100* Inhale 2 Puffs as instructed * MUPIROCIN 2 % TOPICAL OINTMENT Apply 1 application to affect* ALBUTEROL SULFATE HFA 90 MCG/* Inhale 2 Puffs as instructed * FLUTICASONE 50 MCG/ACTUATION * Use 2 Sprays in each nostril * BLOOD SUGAR DIAGNOSTIC STRIPS Test blood sugar(s) 3 times d* COMPOUNDED PRESCRIPTION Nebulizer for home use. Diagn* QUETIAPINE 300 MG TABLET Take 1 tablet by mouth daily * HYDROXYZINE PAMOATE 50 MG CAP* Take 1 capsule by mouth three* MELOXICAM 15 MG TABLET Take 1 tablet by mouth once d* PREDNISONE 10 MG TABLET Take 4 tabs daily x 3 days, t* OXYCODONE-ACETAMINOPHEN 5 MG-* Take 1 tablet by mouth three * FLUCONAZOLE 150 MG TABLET 1 tablet today and repeat in * NADOLOL 80 MG TABLET TAKE 1 TABLET BY MOUTH DAILY GUAIFENESIN ER 600 MG TABLET,* Take 2 tablets by mouth twice* BENZONATATE 200 MG CAPSULE Take 1 capsule by mouth three* TAMSULOSIN 0.4 MG CAPSULE Take 1 capsule by mouth daily* HYDROCODONE 5 MG-ACETAMINOPHE* Take 1 tablet by mouth every * FUROSEMIDE 20 MG TABLET Take 1 tablet by mouth twice * LANCETS Test blood sugar(s) 3 times d* PHENAZOPYRIDINE 200 MG TABLET TO BE TAKEN DIRECTED BY MO* TRIAMCINOLONE ACETONIDE 0.1 %* Apply 1 application to affect* COMPOUNDED PRESCRIPTION Adaptic dressing for leg ulce* CPAP Initiate CPAP @ 14 cm of wate* Problem List As Of Date 01/25/2018 Noted Resolved ESOPHAGEAL REFLUX [K21.9] More... Unspecified asthma(493.90) [J45.909] 06/02/2017 More... 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 Unspecified vitamin D deficiency [E55.9] INVALID FOR*02/27/2013 GENITAL HERPES NEC [A60.00] INVALID FOR* URGE AND STRESS MIXED INCONTINENCE [N39.46] INVALID FOR* LACERATION -NOT COMPLICATED BREAST [S21.009A] INVALID FOR*02/27/2013 Diabetes (HCC) [E11.9] INVALID FOR* Enthesopathy of unspecified site [M77.9] INVALID FOR*02/27/2013 Adenopathy, Hilar [R59.0] INVALID FOR* Major depressive disorder, recurrent episode (H*INVALID FOR* Abnormal mammogram, unspecified [R92.8] INVALID FOR*06/02/2017 Wound, open, breast [S21.009A] INVALID FOR*02/27/2013 Benign neoplasm of skin of lower limb, includin*INVALID FOR*02/27/2013 Umbilical hernia without mention of obstruction*INVALID FOR*06/02/2017 Ventral hernia, unspecified, without mention of*INVALID FOR*06/02/2017 Anxiety [F41.9] INVALID FOR* Vitamin d deficiency [E55.9] INVALID FOR* Urge incontinence of urine [N39.41] INVALID FOR*06/02/2017 Pain of left lower leg [M79.662] INVALID FOR* Carpal tunnel syndrome of right wrist [G56.01] INVALID FOR*06/02/2017 Morbid obesity with BMI of 45.0-49.9, adult (HC* ABRAM (obstructive sleep apnea) [G47.33] INVALID FOR* More... Left carpal tunnel syndrome [G56.02] INVALID FOR*06/02/2017 Asthma with COPD with exacerbation (HCC) [J44.1*INVALID FOR* HTN (hypertension) [I10] INVALID FOR* Ganglion cyst of finger of right hand [M67.441] INVALID FOR* More... Prescriptions ordered this encounter Disp Refills Start End MELOXICAM 15 MG TABLET 01/25/2018 Class: Med Update Route: ORAL Sig: Take 1 tablet by mouth once daily as needed. Take with food. PREDNISONE 10 MG TABLET 30 t* 0 01/25/2018 Sig: Take 4 tabs daily x 3 days, then 3 tabs x 3 days, 2 tabs x 3 days, then 1 tab x3 days with food. As directed OXYCODONE-ACETAMINOPHEN 5 MG-325 MG * 21 t* 0 01/25/2018 02/01/2018 Class: Print RX Route: ORAL Sig: Take 1 tablet by mouth three times daily as needed for up to 7 days. Medications Discontinued During This Encounter oxyCODONE-acetaminophen (PERCOCET) 5* 7 ta* 0 01/03/2018 01/25/2018 Class: Print RX Route: ORAL Sig: Take 1 tablet by mouth once daily for 7 days. As directed Disc: Reason for discontinue is not on file. Follow-up and Disposition History Recorded Encounter Status:Closed by TERRIE LOPEZ MD on 01/25/18 PROGRESS Observed: 01/12/2018 Status: COMPLETED Source: [place] 11:05 AM [facility] REPOSITORY HNO ID: [id number] Author: Veronica Horowitz Service: (none) Author Type: Industrial Arts Teacher Type: Progress Notes Filed: 01/12/2018 12:18 PM Note Text: Edel Lang is a 52 year old female who presents for problem visit For HSV outbreak HPI: HSV outbreak started 5 days ago, no relief. Taking Famvir 250mg PO once daily for suppressive therapy, has outbreak about every 6 months. Under a lot of stress due to father and step father being ill and son with autism. Talks with social workers at her work and feels this helps. Declines counseling. PAST MEDICAL HISTORY Diagnosis Date - FIBROMYALGIA - Cellulitis and abscess of unspecified site 11/26 right leg - Depressive disorder, not elsewhere classified - Dysmetabolic syndrome X 08/09/2006 - Esophageal reflux Gastroesophageal reflux - Generalized anxiety disorder - Hx of cystoscopy 09/11/2017 - Localized osteoarthrosis not specified whether primary or secondary, other specified sites bilateral knees - Morbid obesity with BMI of 50.0-59.9, adult (HCC) - Other genital herpes 08/09/2006 - Type II or unspecified type diabetes mellitus without mention of complication, not stated as uncontrolled - Unspecified asthma(493.90) - Unspecified essential hypertension Essential hypertension - Whooping cough, unspecified organism 11/26 PAST SURGICAL HISTORY Procedure Laterality Date - DELIVERY ONLY 1993 , low cervical - [facility] Colonoscopy - KNEE SCOPE,DIAGNOSTIC 2002 Arthroscopy, knee-right - KNEE SCOPE,DIAGNOSTIC 2003 Arthroscopy, knee-left - PAST SURGICAL HISTORY OF 1997 uterus out as well as cervix - PAST SURGICAL HISTORY OF 03/29/11 Excision of Rt lower leg lesion - PAST SURGICAL HISTORY OF 07/2014 cardiac cath - REMOVAL OF OVARY(S) 1999 Oophorectom bilateral - REMOVAL OF TONSILS,<10 Y/O 1967 Tonsillectomy - REPAIR INCISIONAL HERNIA,JUANA 05/11/11 with large ventralex mesh - REVISE MEDIAN N/CARPAL TUNNEL SURG 6-27-14 Carpal tunnel decomp right and excision ganglion righ thumb - REVISE MEDIAN N/CARPAL TUNNEL SURG Left 09/09/2015 Carpal tunnel decomp left - SKIN SUB GRAFT LEG 2012 left LE FAMILY HISTORY Problem Relation Age of Onset - Diabetes Mother - Hypertension Mother - Psychiatry Mother severe depression, bipolar - Asthma Mother - Arthritis Mother rheumatoid arthritis - fibromyalgia [OTHER] Mother - Hypertension Father - Stroke Father - traumatic brain injury [OTHER] Father - Alzheimer's Disease Maternal Grandmother - Hypertension Maternal Grandfather - Stroke Maternal Grandfather - parkinsons [OTHER] Maternal Grandfather - Stroke Paternal Grandmother 8 - Hypertension Paternal Grandmother - Seizures Son - schizo - affective [OTHER] Son - autism [OTHER] Son - partial agenesis of corpus collosm [OTHER] Son - depression [OTHER] Son Social History Marital status: Spouse name: Years of education: Number of children: 1 Occupational History 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 ondansetron orally disintegrating (ZOFRAN ODT) 4 mg disintegrating tablet Take 1 tablet by mouth every 8 hours as needed for Nausea/Vomiting. sulfamethoxazole-trimethoprim (BACTRIM DS) 800-160 mg per tablet Take 1 tablet by mouth twice daily for 10 days. nadolol (CORGARD) 80 mg tablet TAKE 1 TABLET BY MOUTH DAILY divalproex ER (DEPAKOTE ER) 500 mg 24 hr tablet take 1 tablet by mouth daily guaiFENesin (MUCINEX) 600 mg 12 hr tablet Take 2 tablets by mouth twice daily as needed. Benzonatate 200 mg capsule Take 1 capsule by mouth three times daily as needed. Omeprazole Magnesium (PRILOSEC OTC) 20 mg tablet Take 1 tablet by mouth daily before breakfast. 1/2 hr before meal. gabapentin (NEURONTIN) 600 mg tablet TAKE 2 TABLETS THREE TIMES A DAY dicyclomine (BENTYL) 20 mg tablet TAKE 1 TABLET THREE TIMES A DAY tamsulosin ER (FLOMAX) 0.4 mg cp24 Take 1 capsule by mouth daily at bedtime. HYDROcodone-acetaminophen (NORCO) 5-325 mg per tablet Take 1 tablet by mouth every 6 hours as needed for Pain. furosemide (LASIX) 20 mg tablet Take 1 tablet by mouth twice daily as needed (for edema/leg swelling). famciclovir (FAMVIR) 250 mg tablet Take 1 tablet by mouth twice daily. COMPOUNDED PRESCRIPTION Dimitrislo hermosillo Diagnosis: irritated hemorrhoids with some bleeding K64.4 hydrocortisone (ANUSOL-HC) 2.5 % rectal cream 1 application by RECTAL route twice daily. As directed blood sugar diagnostic (BLOOD GLUCOSE TEST) test strip Test blood sugar(s) 3 times daily. Dx: Type 2 DM - Uncontrolled E11.65 Insulin: No glimepiride (AMARYL) 2 mg tablet Take 2 tablets by mouth twice daily with meals. As directed Lancets lancets Test blood sugar(s) 3 times daily. Dx: Type 2 DM - Uncontrolled E11.65 Insulin: No phenazopyridine (PYRIDIUM) 200 mg tablet TO BE TAKEN DIRECTED BY MOUTH ONE(1) TABLET THREE TIMES DAILY X 2 DAYS lidocaine (XYLOCAINE) 5 % ointment Apply 1 application to affected area three times daily as needed. orphenadrine ER (NORFLEX) 100 mg tablet Take 1 tablet by mouth twice daily as needed for Muscle Spasm. benzocaine-menthol (CEPACOL) 15-2.6 mg lozg lozenge Take 1 Lozenge by mouth every 3 hours as needed. diazePAM (VALIUM) 5 mg tablet Take 5 mg by mouth once daily as needed. triamcinolone acetonide (KENALOG) 0.1 % cream Apply 1 application to affected area twice daily. For itchy lesions for 2 weeks (torso or extremities) as directed oxybutynin ER (DITROPAN XL) 15 mg 24 hr Extended Rel Tab TAKE 1 TABLET BY MOUTH ONCE DAILY. lisinopril (ZESTRIL, PRINIVIL) 5 mg tablet Take 1 tablet by mouth once daily. mometasone-formoterol (DULERA) 100-5 mcg/actuation inhaler Inhale 2 Puffs as instructed twice daily. mupirocin (BACTROBAN) 2 % ointment Apply 1 application to affected area once daily. albuterol HFA (VENTOLIN HFA) 90 mcg/actuation inhaler Inhale 2 Puffs as instructed every 4 hours as needed for Wheezing/Shortness of Breath. COMPOUNDED PRESCRIPTION Adaptic dressing for leg ulcers (sizes 1cm diameter, 1cm by 0.5 cm, and 1cm). Needs 30 day supply. Dx: L97.921 fluticasone (FLONASE) 50 mcg/actuation nasal spray Use 2 Sprays in each nostril once daily. blood sugar diagnostic (FREESTYLE LITE STRIPS) test strip Test blood sugar(s) 3 times daily. Dx: Type 2 DM - Controlled E11.9 Insulin: Yes CPAP Initiate CPAP @ 14 cm of water with humidification. EPR setting of 3. Mask (per patient preference) optional chin strap (if indicated) , filters, tubing, humidifier and lifetime supplies. COMPOUNDED PRESCRIPTION Nebulizer for home use. Diagnosis: Asthma exacerbation QUEtiapine (SEROQUEL) 300 mg tablet Take 1 tablet by mouth daily at bedtime. Also takes [address] Patterson. hydrOXYzine pamoate (VISTARIL) 50 mg capsule Take 1 capsule by mouth three times daily as needed. No current facility-administered medications for this visit. Allergies As of Date: 01/12/2018 Allergen Noted Reaction NIA [FEXOFENADINE HCL] 01/25/2006 Shortness of Breath ANCEF [CEFAZOLIN SODIUM] 01/25/2006 Hives CLINDAMYCIN 01/05/2007 Diarrhea ELAVIL [AMITRIPTYLINE] 04/27/2007 MACROBID [NITROFURANTOIN MONOHYD/*05/15/2007 Hives NORVASC [AMLODIPINE] 12/11/2008 Swelling DUODERM [OTHER] 05/21/2007 Fully Assessed 01/09/2018 REVIEW OF SYSTEMS Abdomen: No bloating, early satiety, indigestion, or increased flatulence. No abdominal pain, nausea, vomiting, diarrhea, or constipation. Bladder: No dysuria, gross hematuria, urinary frequency, urinary urgency, or incontinence. Breast: No breast lumps, nipple d/c, overlying skin changes, redness or skin retraction. Expanded ROS: N/A Allergies and current medication updated:Yes EXAM: There were no vitals taken for this visit. GENERAL: pleasant, female in no apparent distress HEENT: Normocephalic, atraumatic, mucus membranes moist and no lesions NECK: Supple, full range of motion, no adenopathy and thyroid normal DERMATOLOGY: Normal and without lesions} PELVIC: external genitalia normal, normal Bartholin's glands, urethra, [place]'s glands, no cervical lesions, good vaginal support, physiologic discharge present, normal appearing perineal body and perianal region. Vesicles present on labia majora and near urehra NEURO: alert and oriented x3,exam grossly non-focal EXTREMITIES: normal ASSESSMENT AND PLAN: ASSESSMENT/PLAN: 1. Herpes simplex infection of other site of genitourinary tract - ICD9: 599.0, 054.79, ICD10: A60.09 chronic - Valacyclovir 500mg PO BID x 3days then start Valacyclovir 500mg PO once daily for suppressive therapy. Stop Famvir -Lidocaine Gel 5% apply topically to affected area three times a day PRN - Patient education for prevention given Veronica Horowitz CNM PROGRESS Observed: 01/09/2018 Status: COMPLETED Source: [place] 1:52 PM [facility] [place] REPOSITORY HNO ID: [id number] Author: Landry Landeros) Mell Service: (none) Author Type: Nurse Practitioner Type: Progress Notes Filed: 01/09/2018 8:47 PM Note Text: Subjective HPI Patient is a 52 year old female here today for vaginal irritation. States she has been treated for sinusitis with bactrim she now has itching near the vagina. Patient states she also has a history of genital herpes and is concerned she has a lesion in the area. States she has now noted bloody discharge. States it seems to be dull blood spot on tissue paper. Does not notice every time. Nothing makes it better or worse. No other concerns at this time. Review of Systems Constitutional: Negative for fever. Respiratory: Negative. Cardiovascular: Negative. Gastrointestinal: Negative for abdominal pain, nausea and vomiting. Genitourinary: Positive for frequency. See HPI All other systems reviewed and are negative. PAST MEDICAL HISTORY Diagnosis Date - FIBROMYALGIA - Cellulitis and abscess of unspecified site 11/26 right leg - Depressive disorder, not elsewhere classified - Dysmetabolic syndrome X 08/09/2006 - Esophageal reflux Gastroesophageal reflux - Generalized anxiety disorder - Hx of cystoscopy 09/11/2017 - Localized osteoarthrosis not specified whether primary or secondary, other specified sites bilateral knees - Morbid obesity with BMI of 50.0-59.9, adult (HCC) - Other genital herpes 08/09/2006 - Type II or unspecified type diabetes mellitus without mention of complication, not stated as uncontrolled - Unspecified asthma(493.90) - Unspecified essential hypertension Essential hypertension - Whooping cough, unspecified organism 11/26 PAST SURGICAL HISTORY Procedure Laterality Date - DELIVERY ONLY 1993 , low cervical - COLONOSCOP W/ OR W/O [facility] SPEC 03/24/2005 Colonoscopy - KNEE SCOPE,DIAGNOSTIC 2002 Arthroscopy, knee-right - KNEE SCOPE,DIAGNOSTIC 2003 Arthroscopy, knee-left - PAST SURGICAL HISTORY OF 1997 uterus out as well as cervix - PAST SURGICAL HISTORY OF 03/29/11 Excision of Rt lower leg lesion - PAST SURGICAL HISTORY OF 07/2014 cardiac cath - REMOVAL OF OVARY(S) 1999 Oophorectom bilateral - REMOVAL OF TONSILS,<10 Y/O 1967 Tonsillectomy - REPAIR INCISIONAL HERNIA,JUANA 05/11/11 with large ventralex mesh - REVISE MEDIAN N/CARPAL TUNNEL SURG 05-16- Carpal tunnel decomp right and excision ganglion righ thumb - REVISE MEDIAN N/CARPAL TUNNEL SURG Left 09/09/2015 Carpal tunnel decomp left - SKIN SUB GRAFT LEG 2012 left LE ALLERGIES Nia [Fexofenadine Hcl]; Ancef [Cefazolin Sodium]; Clindamycin; Elavil [Amitriptyline]; Macrobid [Nitrofurantoin Monohyd/M-Cryst]; Norvasc [Amlodipine]; Duoderm [Other] MEDICATIONS traMADol (ULTRAM) 50 mg tablet Take 1-2 tablets by mouth every 6 hours as needed for up to 90 days. ondansetron orally disintegrating (ZOFRAN ODT) 4 mg disintegrating tablet Take 1 tablet by mouth every 8 hours as needed for Nausea/Vomiting. oxyCODONE-acetaminophen (PERCOCET) 5-325 mg tablet Take 1 tablet by mouth once daily for 7 days. As directed sulfamethoxazole-trimethoprim (BACTRIM DS) 800-160 mg per tablet Take 1 tablet by mouth twice daily for 10 days. nadolol (CORGARD) 80 mg tablet TAKE 1 TABLET BY MOUTH DAILY divalproex ER (DEPAKOTE ER) 500 mg 24 hr tablet take 1 tablet by mouth daily guaiFENesin (MUCINEX) 600 mg 12 hr tablet Take 2 tablets by mouth twice daily as needed. Benzonatate 200 mg capsule Take 1 capsule by mouth three times daily as needed. Omeprazole Magnesium (PRILOSEC OTC) 20 mg tablet Take 1 tablet by mouth daily before breakfast. 1/2 hr before meal. gabapentin (NEURONTIN) 600 mg tablet TAKE 2 TABLETS THREE TIMES A DAY dicyclomine (BENTYL) 20 mg tablet TAKE 1 TABLET THREE TIMES A DAY tamsulosin ER (FLOMAX) 0.4 mg cp24 Take 1 capsule by mouth daily at bedtime. HYDROcodone-acetaminophen (NORCO) 5-325 mg per tablet Take 1 tablet by mouth every 6 hours as needed for Pain. furosemide (LASIX) 20 mg tablet Take 1 tablet by mouth twice daily as needed (for edema/leg swelling). famciclovir (FAMVIR) 250 mg tablet Take 1 tablet by mouth twice daily. COMPOUNDED PRESCRIPTION Donut yuliyaow Diagnosis: irritated hemorrhoids with some bleeding K64.4 hydrocortisone (ANUSOL-HC) 2.5 % rectal cream 1 application by RECTAL route twice daily. As directed blood sugar diagnostic (BLOOD GLUCOSE TEST) test strip Test blood sugar(s) 3 times daily. Dx: Type 2 DM - Uncontrolled E11.65 Insulin: No glimepiride (AMARYL) 2 mg tablet Take 2 tablets by mouth twice daily with meals. As directed Lancets lancets Test blood sugar(s) 3 times daily. Dx: Type 2 DM - Uncontrolled E11.65 Insulin: No phenazopyridine (PYRIDIUM) 200 mg tablet TO BE TAKEN DIRECTED BY MOUTH ONE(1) TABLET THREE TIMES DAILY X 2 DAYS lidocaine (XYLOCAINE) 5 % ointment Apply 1 application to affected area three times daily as needed. orphenadrine ER (NORFLEX) 100 mg tablet Take 1 tablet by mouth twice daily as needed for Muscle Spasm. benzocaine-menthol (CEPACOL) 15-2.6 mg lozg lozenge Take 1 Lozenge by mouth every 3 hours as needed. diazePAM (VALIUM) 5 mg tablet Take 5 mg by mouth once daily as needed. triamcinolone acetonide (KENALOG) 0.1 % cream Apply 1 application to affected area twice daily. For itchy lesions for 2 weeks (torso or extremities) as directed oxybutynin ER (DITROPAN XL) 15 mg 24 hr Extended Rel Tab TAKE 1 TABLET BY MOUTH ONCE DAILY. lisinopril (ZESTRIL, PRINIVIL) 5 mg tablet Take 1 tablet by mouth once daily. mometasone-formoterol (DULERA) 100-5 mcg/actuation inhaler Inhale 2 Puffs as instructed twice daily. mupirocin (BACTROBAN) 2 % ointment Apply 1 application to affected area once daily. albuterol HFA (VENTOLIN HFA) 90 mcg/actuation inhaler Inhale 2 Puffs as instructed every 4 hours as needed for Wheezing/Shortness of Breath. fluticasone (FLONASE) 50 mcg/actuation nasal spray Use 2 Sprays in each nostril once daily. blood sugar diagnostic (FREESTYLE LITE STRIPS) test strip Test blood sugar(s) 3 times daily. Dx: Type 2 DM - Controlled E11.9 Insulin: Yes CPAP Initiate CPAP @ 14 cm of water with humidification. EPR setting of 3. Mask (per patient preference) optional chin strap (if indicated) , filters, tubing, humidifier and lifetime supplies. COMPOUNDED PRESCRIPTION Nebulizer for home use. Diagnosis: Asthma exacerbation QUEtiapine (SEROQUEL) 300 mg tablet Take 1 tablet by mouth daily at bedtime. Also takes [address] Patterson. hydrOXYzine pamoate (VISTARIL) 50 mg capsule Take 1 capsule by mouth three times daily as needed. fluconazole (DIFLUCAN) 150 mg tablet 1 tablet today and repeat in 72 hours COMPOUNDED PRESCRIPTION Adaptic dressing for leg ulcers (sizes 1cm diameter, 1cm by 0.5 cm, and 1cm). Needs 30 day supply. Dx: L97.921 FAMILY HISTORY Problem Relation Age of Onset - Diabetes Mother - Hypertension Mother - Psychiatry Mother severe depression, bipolar - Asthma Mother - Arthritis Mother rheumatoid arthritis - fibromyalgia [OTHER] Mother - Hypertension Father - Stroke Father - traumatic brain injury [OTHER] Father - Alzheimer's Disease Maternal Grandmother - Hypertension Maternal Grandfather - Stroke Maternal Grandfather - parkinsons [OTHER] Maternal Grandfather - Stroke Paternal Grandmother 8 - Hypertension Paternal Grandmother - Seizures Son - schizo - affective [OTHER] Son - autism [OTHER] Son - partial agenesis of corpus collosm [OTHER] Son - depression [OTHER] Son Social History Substance Use Topics - Smoking status: Never Smoker - Smokeless tobacco: Never Used - Alcohol use No Comment: recovering alcoholic-quit 1985 BP 110/70 Pulse 76 Temp 37.1 ?C (98.8 ?F) (Tympanic) Resp 20 Wt 135.6 kg (299 lb) BMI 49.76 kg/m2 Objective Physical Exam Constitutional: She is oriented to person, place, and time and well-developed, well-nourished, and in no distress. Vital signs are normal. HENT: Head: Normocephalic and atraumatic. Right Ear: External ear normal. Left Ear: External ear normal. Nose: Nose normal. Neck: Neck supple. Cardiovascular: Normal rate, regular rhythm and normal heart sounds. Pulmonary/Chest: Effort normal and breath sounds normal. She has no wheezes. She has no rales. Genitourinary: Vulva exhibits erythema. Vulva exhibits no exudate, no lesion, no rash and no tenderness. Vagina exhibits normal mucosa, no exudate and no lesion. Thick curdy odorless white and vaginal discharge found. Genitourinary Comments: Exam difficult due to body habitus. No lesions noted. Lymphadenopathy: Head (right side): No submental, no submandibular and no tonsillar adenopathy present. Head (left side): No submental, no submandibular and no tonsillar adenopathy present. She has no cervical adenopathy. Right: No inguinal adenopathy present. Left: No inguinal adenopathy present. Neurological: She is alert and oriented to person, place, and time. Skin: Skin is warm and dry. She is not diaphoretic. Nursing note and vitals reviewed. ASSESSMENT/PLAN: 1. Dysuria - ICD9: 788.1, ICD10: R30.0 (primary diagnosis) acute - UA positive for venkata esterase - Patient being treated with Bactrim for sinusitis and skin infection from her PCP - Patient education for prevention given - UA DIP B/O - URINE CULTURE 2. Vaginal irritation - ICD9: 623.9, ICD10: N89.8 - Will send for culture - Will treat for yeast - will call with results - Continue with antiviral maintenance medication - VAGINAL PATHOGENS DNA PROBES - FLUCONAZOLE 150 MG TABLET Prescription instructions reviewed with patient as applicable. Patient advised if symptoms do not improve or if symptoms worsen sooner, to contact their primary care physician. Potential red flag symptoms discussed with the patient. Reviewed appropriate action plan to take if red flag symptoms occur. Patient agreeable to treatment plan. Landry Monte CNP Observed: 01/09/2018 Status: F Source: [facility] URINE CULTURE 4:21 AM [facility] REPOSITORY Sp. Request/Comment: - Specimen received in preservative Culture Result - No growth (<1,000 CFU/ml) Performed By: #### URCUL #### [facility] [address] [place], [place] [address] VAG PATHOGENS DNA Collected: 01/09/2018 Status: F Source: [facility] 12:25 AM [facility] REPOSITORY TYPE CODE TESTS RESULT OUT OF RANGE REFERENCE UNITS LAB TVDNA Negative for Trichomonas Negative vaginalis by Trich vag for Trichomonas DNA Probe DNA Probe vaginalis by DNA Probe LAB GVDNA Negative for Gardnerella Negative vaginalis by Digna vag for Gardnerella DNA Probe DNA Probe vaginalis by DNA Probe LAB CANDNA Negative for Kalina species Positive Abnormal by DNA Probe Kalina for Kalina Alert sp DNA Probe species by DNA Probe. Result Comment: This is indicative of candidiasis when consistent with clinical signs and symptoms. Performed By: #### VAGDNA #### [facility] [address] [place], [place] [address] PROGRESS Observed: 01/03/2018 Status: COMPLETED Source: [facility] 12:34 PM [facility] REPOSITORY HNO ID: [id number] Author: Terrie Lopez Service: (none) Author Type: Physician Type: Progress Notes Filed: 01/21/2018 1:16 AM Note Text: Patient presents with: F/U 3 Month SUBJECTIVE: Edel Lang is a 52 year old year old lady here today for 3 month follow up appointment for review of medical conditions. Losing inches. Down sizes. Sinusitis symptoms for a few days. pain and pressure. headaches. increased migraines. Green drainage. Cold symptoms prior with sneezing and coughing. 1 week of this. Using Mucinex and nasal spray (steroid). ?food trigger for migraines Irritability noted Stressors. PAST MEDICAL HISTORY Diagnosis Date - FIBROMYALGIA - Cellulitis and abscess of unspecified site 11/26 right leg - Depressive disorder, not elsewhere classified - Dysmetabolic syndrome X 08/09/2006 - Esophageal reflux Gastroesophageal reflux - Generalized anxiety disorder - Hx of cystoscopy 09/11/2017 - Localized osteoarthrosis not specified whether primary or secondary, other specified sites bilateral knees - Morbid obesity with BMI of 50.0-59.9, adult (HCC) - Other genital herpes 08/09/2006 - Type II or unspecified type diabetes mellitus without mention of complication, not stated as uncontrolled - Unspecified asthma(493.90) - Unspecified essential hypertension Essential hypertension - Whooping cough, unspecified organism 11/26 Current Outpatient Prescriptions: nadolol (CORGARD) 80 mg tablet TAKE 1 TABLET BY MOUTH DAILY divalproex ER (DEPAKOTE ER) 500 mg 24 hr tablet take 1 tablet by mouth daily traMADol (ULTRAM) 50 mg tablet Take 1-2 tablets by mouth every 6 hours as needed for up to 30 days. guaiFENesin (MUCINEX) 600 mg 12 hr tablet Take 2 tablets by mouth twice daily as needed. Benzonatate 200 mg capsule Take 1 capsule by mouth three times daily as needed. ondansetron orally disintegrating (ZOFRAN ODT) 4 mg disintegrating tablet Take 1 tablet by mouth every 8 hours as needed for Nausea/Vomiting. Omeprazole Magnesium (PRILOSEC OTC) 20 mg tablet Take 1 tablet by mouth daily before breakfast. 1/2 hr before meal. gabapentin (NEURONTIN) 600 mg tablet TAKE 2 TABLETS THREE TIMES A DAY dicyclomine (BENTYL) 20 mg tablet TAKE 1 TABLET THREE TIMES A DAY tamsulosin ER (FLOMAX) 0.4 mg cp24 Take 1 capsule by mouth daily at bedtime. HYDROcodone-acetaminophen (NORCO) 5-325 mg per tablet Take 1 tablet by mouth every 6 hours as needed for Pain. furosemide (LASIX) 20 mg tablet Take 1 tablet by mouth twice daily as needed (for edema/leg swelling). famciclovir (FAMVIR) 250 mg tablet Take 1 tablet by mouth twice daily. COMPOUNDED PRESCRIPTION Husam hermosillo Diagnosis: irritated hemorrhoids with some bleeding K64.4 hydrocortisone (ANUSOL-HC) 2.5 % rectal cream 1 application by RECTAL route twice daily. As directed blood sugar diagnostic (BLOOD GLUCOSE TEST) test strip Test blood sugar(s) 3 times daily. Dx: Type 2 DM - Uncontrolled E11.65 Insulin: No glimepiride (AMARYL) 2 mg tablet Take 2 tablets by mouth twice daily with meals. As directed Lancets lancets Test blood sugar(s) 3 times daily. Dx: Type 2 DM - Uncontrolled E11.65 Insulin: No phenazopyridine (PYRIDIUM) 200 mg tablet TO BE TAKEN DIRECTED BY MOUTH ONE(1) TABLET THREE TIMES DAILY X 2 DAYS lidocaine (XYLOCAINE) 5 % ointment Apply 1 application to affected area three times daily as needed. orphenadrine ER (NORFLEX) 100 mg tablet Take 1 tablet by mouth twice daily as needed for Muscle Spasm. benzocaine-menthol (CEPACOL) 15-2.6 mg lozg lozenge Take 1 Lozenge by mouth every 3 hours as needed. diazePAM (VALIUM) 5 mg tablet Take 5 mg by mouth once daily as needed. triamcinolone acetonide (KENALOG) 0.1 % cream Apply 1 application to affected area twice daily. For itchy lesions for 2 weeks (torso or extremities) as directed oxybutynin ER (DITROPAN XL) 15 mg 24 hr Extended Rel Tab TAKE 1 TABLET BY MOUTH ONCE DAILY. lisinopril (ZESTRIL, PRINIVIL) 5 mg tablet Take 1 tablet by mouth once daily. mometasone-formoterol (DULERA) 100-5 mcg/actuation inhaler Inhale 2 Puffs as instructed twice daily. mupirocin (BACTROBAN) 2 % ointment Apply 1 application to affected area once daily. albuterol HFA (VENTOLIN HFA) 90 mcg/actuation inhaler Inhale 2 Puffs as instructed every 4 hours as needed for Wheezing/Shortness of Breath. COMPOUNDED PRESCRIPTION Adaptic dressing for leg ulcers (sizes 1cm diameter, 1cm by 0.5 cm, and 1cm). Needs 30 day supply. Dx: L97.921 fluticasone (FLONASE) 50 mcg/actuation nasal spray Use 2 Sprays in each nostril once daily. blood sugar diagnostic (FREESTYLE LITE STRIPS) test strip Test blood sugar(s) 3 times daily. Dx: Type 2 DM - Controlled E11.9 Insulin: Yes CPAP Initiate CPAP @ 14 cm of water with humidification. EPR setting of 3. Mask (per patient preference) optional chin strap (if indicated) , filters, tubing, humidifier and lifetime supplies. COMPOUNDED PRESCRIPTION Nebulizer for home use. Diagnosis: Asthma exacerbation QUEtiapine (SEROQUEL) 300 mg tablet Take 1 tablet by mouth daily at bedtime. Also takes [address] Patterson. hydrOXYzine pamoate (VISTARIL) 50 mg capsule Take 1 capsule by mouth three times daily as needed. No current facility-administered medications for this visit. OBJECTIVE: BP 130/70 (BP Site: Left Arm, BP Position: Sitting, BP Cuff Size: Regular Adult) Pulse 68 Resp 12 Wt 133.4 kg (294 lb) BMI 48.92 kg/m2 Patient is alert, oriented times 3, no apparent distress, affect is bright, reactive. Last 5 Encounter BP Readings: Date: BP: 01/03/2018 130/70 11/26/2017 106/76 09/28/2017 133/88 09/08/2017 106/72 08/28/2017 100/62 Last 5 Encounter Wt Readings: Date: Wt: 01/03/2018 133.4 kg (294 lb) 11/26/2017 130.6 kg (288 lb) 09/28/2017 135.2 kg (298 lb) 09/08/2017 141.1 kg (311 lb) 08/28/2017 141.1 kg (311 lb) HEENT: sinuses all tender; TMs normal--canals clear Heart: Regular rate, rhythm, no murmurs, gallops, rubs. Lungs: Clear to auscultation, bilaterally, breathing non labored. Ext: No cyanosis, clubbing, or edema. ASSESSMENT AND PLAN: Encounter Diagnosis ICD-10-CM 1. Acute non-recurrent sinusitis, unspecified location J01.90 2. Morbid obesity with BMI of 45.0-49.9, adult ([facility]) E66.01 Z68.42 3. Pain of left lower leg M79.662 oxyCODONE-acetaminophen (PERCOCET) 5-325 mg tablet Chronic left leg pain s/p large wound; small crust upper part of the wound 4. Generalized osteoarthritis M15.9 traMADol (ULTRAM) 50 mg tablet 5. Fibromyalgia M79.7 traMADol (ULTRAM) 50 mg tablet 6. Essential hypertension I10 Had tolerated Bactrim before with lisinopril without potassium issue Will see about migraines Was good with the black [place] but not available at place as before--cost of other high. Above issues addressed with patient. Patient involved in shared decision making for management of her medical issues. History and medications reviewed. Epic updated as needed Refills taken care of and meds adjusted as indicated after reviewed history, exam and labs. Health Maintenance reviewed. Updated record and/or ordered tests as recorded. Encouraged on efforts at healthy diet and regular exercise and adequate sleep. Needs to keep working on diet and exercise with lifestyle changes for effective weight loss. Doing well with weight loss efforts. The majority of the visit was spent counseling and/or coordinating care for the patient. Qnir-[id number] time was 25 minutes. Terrie Lopez MD CNOV Observed: 01/03/2018 Status: COMPLETED Source: [place] 11:20 AM [facility] REPOSITORY Office Visit (INTMWS) EDEL LANG ([id number]) 1965 F Date Time Provider Department 01/03/18 11:20 AM TERRIE LOPEZ INTMWS During your visit today, we recorded the following information about you: Pulse Respiration Blood pressure Weight 68/minute 12/minute 130/70 133.4 kg Terrie Lopez MD 01/21/2018 1:16 AM Signed Patient presents with: F/U 3 Month SUBJECTIVE: Edel Lang is a 52 year old year old lady here today for 3 month follow up appointment for review of medical conditions. Losing inches. Down sizes. Sinusitis symptoms for a few days. pain and pressure. headaches. increased migraines. Green drainage. Cold symptoms prior with sneezing and coughing. 1 week of this. Using Mucinex and nasal spray (steroid). ?food trigger for migraines Irritability noted Stressors. PAST MEDICAL HISTORY Diagnosis Date - FIBROMYALGIA - Cellulitis and abscess of unspecified site 11/26 right leg - Depressive disorder, not elsewhere classified - Dysmetabolic syndrome X 08/09/2006 - Esophageal reflux Gastroesophageal reflux - Generalized anxiety disorder - Hx of cystoscopy 09/11/2017 - Localized osteoarthrosis not specified whether primary or secondary, other specified sites bilateral knees - Morbid obesity with BMI of 50.0-59.9, adult (HCC) - Other genital herpes 08/09/2006 - Type II or unspecified type diabetes mellitus without mention of complication, not stated as uncontrolled - Unspecified asthma(493.90) - Unspecified essential hypertension Essential hypertension - Whooping cough, unspecified organism 11/26 Current Outpatient Prescriptions: nadolol (CORGARD) 80 mg tablet TAKE 1 TABLET BY MOUTH DAILY divalproex ER (DEPAKOTE ER) 500 mg 24 hr tablet take 1 tablet by mouth daily traMADol (ULTRAM) 50 mg tablet Take 1-2 tablets by mouth every 6 hours as needed for up to 30 days. guaiFENesin (MUCINEX) 600 mg 12 hr tablet Take 2 tablets by mouth twice daily as needed. Benzonatate 200 mg capsule Take 1 capsule by mouth three times daily as needed. ondansetron orally disintegrating (ZOFRAN ODT) 4 mg disintegrating tablet Take 1 tablet by mouth every 8 hours as needed for Nausea/Vomiting. Omeprazole Magnesium (PRILOSEC OTC) 20 mg tablet Take 1 tablet by mouth daily before breakfast. 1/2 hr before meal. gabapentin (NEURONTIN) 600 mg tablet TAKE 2 TABLETS THREE TIMES A DAY dicyclomine (BENTYL) 20 mg tablet TAKE 1 TABLET THREE TIMES A DAY tamsulosin ER (FLOMAX) 0.4 mg cp24 Take 1 capsule by mouth daily at bedtime. HYDROcodone-acetaminophen (NORCO) 5-325 mg per tablet Take 1 tablet by mouth every 6 hours as needed for Pain. furosemide (LASIX) 20 mg tablet Take 1 tablet by mouth twice daily as needed (for edema/leg swelling). famciclovir (FAMVIR) 250 mg tablet Take 1 tablet by mouth twice daily. COMPOUNDED PRESCRIPTION Husam hermosillo Diagnosis: irritated hemorrhoids with some bleeding K64.4 hydrocortisone (ANUSOL-HC) 2.5 % rectal cream 1 application by RECTAL route twice daily. As directed blood sugar diagnostic (BLOOD GLUCOSE TEST) test strip Test blood sugar(s) 3 times daily. Dx: Type 2 DM - Uncontrolled E11.65 Insulin: No glimepiride (AMARYL) 2 mg tablet Take 2 tablets by mouth twice daily with meals. As directed Lancets lancets Test blood sugar(s) 3 times daily. Dx: Type 2 DM - Uncontrolled E11.65 Insulin: No phenazopyridine (PYRIDIUM) 200 mg tablet TO BE TAKEN DIRECTED BY MOUTH ONE(1) TABLET THREE TIMES DAILY X 2 DAYS lidocaine (XYLOCAINE) 5 % ointment Apply 1 application to affected area three times daily as needed. orphenadrine ER (NORFLEX) 100 mg tablet Take 1 tablet by mouth twice daily as needed for Muscle Spasm. benzocaine-menthol (CEPACOL) 15-2.6 mg lozg lozenge Take 1 Lozenge by mouth every 3 hours as needed. diazePAM (VALIUM) 5 mg tablet Take 5 mg by mouth once daily as needed. triamcinolone acetonide (KENALOG) 0.1 % cream Apply 1 application to affected area twice daily. For itchy lesions for 2 weeks (torso or extremities) as directed oxybutynin ER (DITROPAN XL) 15 mg 24 hr Extended Rel Tab TAKE 1 TABLET BY MOUTH ONCE DAILY. lisinopril (ZESTRIL, PRINIVIL) 5 mg tablet Take 1 tablet by mouth once daily. mometasone-formoterol (DULERA) 100-5 mcg/actuation inhaler Inhale 2 Puffs as instructed twice daily. mupirocin (BACTROBAN) 2 % ointment Apply 1 application to affected area once daily. albuterol HFA (VENTOLIN HFA) 90 mcg/actuation inhaler Inhale 2 Puffs as instructed every 4 hours as needed for Wheezing/Shortness of Breath. COMPOUNDED PRESCRIPTION Adaptic dressing for leg ulcers (sizes 1cm diameter, 1cm by 0.5 cm, and 1cm). Needs 30 day supply. Dx: L97.921 fluticasone (FLONASE) 50 mcg/actuation nasal spray Use 2 Sprays in each nostril once daily. blood sugar diagnostic (FREESTYLE LITE STRIPS) test strip Test blood sugar(s) 3 times daily. Dx: Type 2 DM - Controlled E11.9 Insulin: Yes CPAP Initiate CPAP @ 14 cm of water with humidification. EPR setting of 3. Mask (per patient preference) optional chin strap (if indicated) , filters, tubing, humidifier and lifetime supplies. COMPOUNDED PRESCRIPTION Nebulizer for home use. Diagnosis: Asthma exacerbation QUEtiapine (SEROQUEL) 300 mg tablet Take 1 tablet by mouth daily at bedtime. Also takes [address] Patterson. hydrOXYzine pamoate (VISTARIL) 50 mg capsule Take 1 capsule by mouth three times daily as needed. No current facility-administered medications for this visit. OBJECTIVE: BP 130/70 (BP Site: Left Arm, BP Position: Sitting, BP Cuff Size: Regular Adult) Pulse 68 Resp 12 Wt 133.4 kg (294 lb) BMI 48.92 kg/m2 Patient is alert, oriented times 3, no apparent distress, affect is bright, reactive. Last 5 Encounter BP Readings: Date: BP: 01/03/2018 130/70 11/26/2017 106/76 09/28/2017 133/88 09/08/2017 106/72 08/28/2017 100/62 Last 5 Encounter Wt Readings: Date: Wt: 01/03/2018 133.4 kg (294 lb) 11/26/2017 130.6 kg (288 lb) 09/28/2017 135.2 kg (298 lb) 09/08/2017 141.1 kg (311 lb) 08/28/2017 141.1 kg (311 lb) HEENT: sinuses all tender; TMs normal--canals clear Heart: Regular rate, rhythm, no murmurs, gallops, rubs. Lungs: Clear to auscultation, bilaterally, breathing non labored. Ext: No cyanosis, clubbing, or edema. ASSESSMENT AND PLAN: Encounter Diagnosis ICD-10-CM 1. Acute non-recurrent sinusitis, unspecified location J01.90 2. Morbid obesity with BMI of 45.0-49.9, adult ([facility]) E66.01 Z68.42 3. Pain of left lower leg M79.662 oxyCODONE-acetaminophen (PERCOCET) 5-325 mg tablet Chronic left leg pain s/p large wound; small crust upper part of the wound 4. Generalized osteoarthritis M15.9 traMADol (ULTRAM) 50 mg tablet 5. Fibromyalgia M79.7 traMADol (ULTRAM) 50 mg tablet 6. Essential hypertension I10 Had tolerated Bactrim before with lisinopril without potassium issue Will see about migraines Was good with the black [place] but not available at place as before--cost of other high. Above issues addressed with patient. Patient involved in shared decision making for management of her medical issues. History and medications reviewed. Epic updated as needed Refills taken care of and meds adjusted as indicated after reviewed history, exam and labs. Health Maintenance reviewed. Updated record and/or ordered tests as recorded. Encouraged on efforts at healthy diet and regular exercise and adequate sleep. Needs to keep working on diet and exercise with lifestyle changes for effective weight loss. Doing well with weight loss efforts. The majority of the visit was spent counseling and/or coordinating care for the patient. Iwvl-ns-rbby time was 25 minutes. Terrie Lopez MD Referring Provider: TERRIE LOPEZ [[id number]] Allergies As of Date: 01/03/2018 Noted Allergy Reaction NIA (FEXOFENADINE HCL) 01/25/2006 12 - Shortness of Breath ANCEF (CEFAZOLIN SODIUM) 01/25/2006 4 - Hives CLINDAMYCIN 01/05/2007 6 - Diarrhea ELAVIL (AMITRIPTYLINE) 04/27/2007 Comments: hallucinations MACROBID (NITROFURANTOIN MONOHYD/*05/15/2007 4 - Hives NORVASC (AMLODIPINE) 12/11/2008 7 - Swelling duoderm [Other] 05/21/2007 Comments: severe burning pain at point of contact. No redness. Date Reviewed: 01/03/2018 Reviewed by: Penny Hooker Commercial Account Manager - Fully Assessed Reason for Visit: F/U 3 Month [443] Primary Visit Diagnosis:Acute non-recurrent sinusitis, unspecified location [J01.90] Other Visit Diagnoses:Morbid obesity with BMI of 45.0-49.9, adult (HCC) [E66.01, Z68.42] Pain of left lower leg [M79.662] Comment:Chronic left leg pain s/p large wound; small crust upper part of the wound Generalized osteoarthritis [M15.9] Fibromyalgia [M79.7] Essential hypertension [I10] Order(s):traMADol (ULTRAM) 50 mg tabletTake 1-2 tablets by mouth every 6 hours as needed for up to 90 days.Disp: 90 tabletRfl: 2 ondansetron orally disintegrating (ZOFRAN ODT) 4 mg disintegrating tabletTake 1 tablet by mouth every 8 hours as needed for Nausea/Vomiting.Disp: 12 tabletRfl: 2 [] oxyCODONE-acetaminophen (PERCOCET) 5-325 mg tabletTake 1 tablet by mouth once daily for 7 days. As directedDisp: 7 tabletRfl: 0 [] sulfamethoxazole-trimethoprim (BACTRIM DS) 800-160 mg per tabletTake 1 tablet by mouth twice daily for 10 days.Disp: 20 tabletRfl: 0 Prescriptions as of 01/03/2018 Sig: TRAMADOL 50 MG TABLET Take 1-2 tablets by mouth nathalie* ONDANSETRON 4 MG DISINTEGRATI* Take 1 tablet by mouth every * NADOLOL 80 MG TABLET TAKE 1 TABLET BY MOUTH DAILY DIVALPROEX ER 500 MG TABLET,E* take 1 tablet by mouth daily GUAIFENESIN ER 600 MG TABLET,* Take 2 tablets by mouth twice* BENZONATATE 200 MG CAPSULE Take 1 capsule by mouth three* OMEPRAZOLE MAGNESIUM 20 MG TA* Take 1 tablet by mouth daily * GABAPENTIN 600 MG TABLET TAKE 2 TABLETS THREE TIMES A * DICYCLOMINE 20 MG TABLET TAKE 1 TABLET THREE TIMES A D* TAMSULOSIN 0.4 MG CAPSULE Take 1 capsule by mouth daily* HYDROCODONE 5 MG-ACETAMINOPHE* Take 1 tablet by mouth every * FUROSEMIDE 20 MG TABLET Take 1 tablet by mouth twice * COMPOUNDED PRESCRIPTION Husam hermosillo Diagnosis: ir* HYDROCORTISONE 2.5 % TOPICAL * 1 application by RECTAL route* BLOOD SUGAR DIAGNOSTIC STRIPS Test blood sugar(s) 3 times d* GLIMEPIRIDE 2 MG TABLET Take 2 tablets by mouth twice* LANCETS Test blood sugar(s) 3 times d* X FAMCICLOVIR 250 MG TABLET Take 1 tablet by mouth twice * PHENAZOPYRIDINE 200 MG TABLET TO BE TAKEN DIRECTED BY MO* X LIDOCAINE 5 % TOPICAL OINTMENT Apply 1 application to affect* ORPHENADRINE CITRATE ER 100 M* Take 1 tablet by mouth twice * BENZOCAINE-MENTHOL 15 MG-2.6 * Take 1 Lozenge by mouth every* DIAZEPAM 5 MG TABLET Take 5 mg by mouth once daily* TRIAMCINOLONE ACETONIDE 0.1 %* Apply 1 application to affect* OXYBUTYNIN CHLORIDE ER 15 MG * TAKE 1 TABLET BY MOUTH ONCE D* LISINOPRIL 5 MG TABLET Take 1 tablet by mouth once d* MOMETASONE-FORMOTEROL HFA 100* Inhale 2 Puffs as instructed * MUPIROCIN 2 % TOPICAL OINTMENT Apply 1 application to affect* ALBUTEROL SULFATE HFA 90 MCG/* Inhale 2 Puffs as instructed * COMPOUNDED PRESCRIPTION Adaptic dressing for leg ulce* FLUTICASONE 50 MCG/ACTUATION * Use 2 Sprays in each nostril * BLOOD SUGAR DIAGNOSTIC STRIPS Test blood sugar(s) 3 times d* CPAP Initiate CPAP @ 14 cm of wate* COMPOUNDED PRESCRIPTION Nebulizer for home use. Diagn* QUETIAPINE 300 MG TABLET Take 1 tablet by mouth daily * HYDROXYZINE PAMOATE 50 MG CAP* Take 1 capsule by mouth three* OXYCODONE-ACETAMINOPHEN 5 MG-* Take 1 tablet by mouth once d* SULFAMETHOXAZOLE 800 MG-TRIME* Take 1 tablet by mouth twice * Problem List As Of Date 01/03/2018 Noted Resolved ESOPHAGEAL REFLUX [K21.9] More... Unspecified asthma(493.90) [J45.909] 06/02/2017 More... 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 Unspecified vitamin D deficiency [E55.9] INVALID FOR*02/27/2013 GENITAL HERPES NEC [A60.00] INVALID FOR* URGE AND STRESS MIXED INCONTINENCE [N39.46] INVALID FOR* LACERATION -NOT COMPLICATED BREAST [S21.009A] INVALID FOR*02/27/2013 Diabetes (HCC) [E11.9] INVALID FOR* Enthesopathy of unspecified site [M77.9] INVALID FOR*02/27/2013 Adenopathy, Hilar [R59.0] INVALID FOR* Major depressive disorder, recurrent episode (H*INVALID FOR* Abnormal mammogram, unspecified [R92.8] INVALID FOR*06/02/2017 Wound, open, breast [S21.009A] INVALID FOR*02/27/2013 Benign neoplasm of skin of lower limb, includin*INVALID FOR*02/27/2013 Umbilical hernia without mention of obstruction*INVALID FOR*06/02/2017 Ventral hernia, unspecified, without mention of*INVALID FOR*06/02/2017 Anxiety [F41.9] INVALID FOR* Vitamin d deficiency [E55.9] INVALID FOR* Urge incontinence of urine [N39.41] INVALID FOR*06/02/2017 Pain of left lower leg [M79.662] INVALID FOR* Carpal tunnel syndrome of right wrist [G56.01] INVALID FOR*06/02/2017 Morbid obesity with BMI of 45.0-49.9, adult (HC* ABRAM (obstructive sleep apnea) [G47.33] INVALID FOR* More... Left carpal tunnel syndrome [G56.02] INVALID FOR*06/02/2017 Asthma with COPD with exacerbation (HCC) [J44.1*INVALID FOR* HTN (hypertension) [I10] INVALID FOR* Ganglion cyst of finger of right hand [M67.441] INVALID FOR* More... Prescriptions ordered this encounter Disp Refills Start End TRAMADOL 50 MG TABLET 90 t* 2 01/03/2018 04/03/2018 Class: Print RX Cmt: This is for 90 per 1 month with 2 refills to last 3 months Route: ORAL Sig: Take 1-2 tablets by mouth every 6 hours as needed for up to 90 days. ONDANSETRON 4 MG DISINTEGRATING TABL* 12 t* 2 01/03/2018 Route: ORAL Sig: Take 1 tablet by mouth every 8 hours as needed for Nausea/Vomiting. OXYCODONE-ACETAMINOPHEN 5 MG-325 MG * 7 ta* 0 01/03/2018 01/10/2018 Class: Print RX Route: ORAL Sig: Take 1 tablet by mouth once daily for 7 days. As directed SULFAMETHOXAZOLE 800 MG-TRIMETHOPRIM* 20 t* 0 01/03/2018 01/13/2018 Route: ORAL Sig: Take 1 tablet by mouth twice daily for 10 days. Medications Discontinued During This Encounter traMADol (ULTRAM) 50 mg tablet 90 t* 0 12/01/2017 01/03/2018 Class: Print RX Route: ORAL Sig: Take 1-2 tablets by mouth every 6 hours as needed for up to 30 days. Disc: Reason for discontinue is not on file. ondansetron orally disintegrating (Z* 12 t* 2 11/08/2017 01/03/2018 Route: ORAL Sig: Take 1 tablet by mouth every 8 hours as needed for Nausea/Vomiting. Disc: Reason for discontinue is not on file. sulfamethoxazole-trimethoprim (BACTR* 20 t* 0 08/19/2017 01/03/2018 Cmt: Ok to give generic equivalent Route: ORAL Sig: Take 1 tablet by mouth twice daily for 10 days. Disc: Reason for discontinue is not on file. Disposition: Return in about 3 months (around 04/02/2018) for DM SMA in January; add 1:1 in 6 months. Follow-up and Disposition History Recorded Encounter Status:Closed by TERRIE LOPEZ MD on 01/21/18 ALLERGIES ALLERGIES DATE TYPE / CODE NAME / CODE REACTION SEVERITY SOURCE Drug cefazolin Hives Unknown [place] 9 Allergy/202732508( sodium/Z546024923(R [facility] XNORM) Hospital Repository Drug Penicillins/[id number] Hives Unknown [place] 9 Allergy/716738350( 476(RXNORM) [facility] Hospital Repository Drug sumatriptan/G214715 Shortness of Unknown [place] 9 Allergy/929823538( 044(RXNORM) breath [facility] Hospital Repository Drug vancomycin/T4260262 BURNING RED SV [place] 9 Allergy/765761517( 66(RXNORM) RASH ON LEGGS [facility] SN[facility]) Hospital Repository DRUG VANCOMYCIN SWELLING [place] 8 INGREDI/606545997( [facility] Main SNOMED CT) [place] Repository DRUG AMLODIPINE SWELLING [place] 9 INGREDI/376694022( [facility] Main SNOMED CT) [place] Repository Miscellaneous OTHER [place] 7 Allergy/988391238( [facility] Main SNOMED CT) [place] Repository DRUG/559569285(SNO NITROFURANTOIN HIVES [place] [address]) [facility] Main [place] Repository DRUG AMITRIPTYLINE [place] 7 INGREDI/105366050( Clinic Main SNOMED CT) [place] Repository DRUG CLINDAMYCIN DIARRHEA [place] 7 INGREDI/594515077( Clinic Main SNOMED CT) [place] Repository DRUG FEXOFENADINE HCL SHORTNESS OF [place] 6 INGREDI/035580756( Clinic Main SNOMED CT) [place] Repository DRUG CEFAZOLIN SODIUM HIVES [place] 6 INGREDI/813419056( Clinic Main SNOMED CT) [place] Repository NG/105612875(SNOME FEXOFENADINE HCL [facility] D CT) [facility] Repository NG/216365347(SNOME CEFAZOLIN SODIUM [facility] D CT) [facility] System Repository NG/436003569(SNOME CLINDAMYCIN [facility] D CT) [facility] System Repository NG/629690609(SNOME OTHER [facility] D CT) [facility] System Repository NG/988830874(SNOME AMITRIPTYLINE [facility] D CT) [facility] System Repository NG/814015360(SNOME NITROFURANTOIN [facility] D CT) [facility] Repository NG/574296008(SNOME AMLODIPINE [facility] D CT) [facility] System Repository ENCOUNTERS ENCOUNTERS ADMIT/DISCHARGE ACCOUNT NUMBER ADMITTING ENCOUNTER LOCATION SOURCE CLASS 12/05/2018/12/05/19 [id number] Ambulatory [address] Repository 12/05/2018/12/05/19 [id number] Emergency [address] ding:ED Repository 11/29/2018/11/30/19 [id number] Ambulatory [address] Repository 11/18/2018 [id number] Ambulatory [facility] ding:[place] Repository 11/18/2018 [id number] Ambulatory BMSBuilding: [facility] Repository 11/17/2018/11/17/20 [id number] Emergency [address] ding:ED Repository 11/14/2018/11/15/20 [id number] Ambulatory [address] Repository 11/06/2018/11/07/20 [id number] Ambulatory [address] Repository 11/02/2018/11/05/20 [id number] Ambulatory [address] Repository 11/01/2018/11/23/19 [id number] Ambulatory [address] Repository 10/22/2018/11/06/20 [id number] Ambulatory [address] Repository 10/16/2018/10/16/20 [id number] Ambulatory BMSBuilding: [place] 18 BMS.[facility] Repository 10/15/2018 [id number] Ambulatory [facility] ding:[facility] Repository 10/15/2018 [id number] Ambulatory BMSBuilding: [place] BMS.[facility] Repository 10/14/2018/10/14/20 [id number] Emergency [address] ding:ED Repository 10/07/2018/10/07/20 [id number] Emergency [address] ding:ED Repository 09/27/2018/10/10/20 [id number] Ambulatory [address] Repository 09/25/2018/09/25/20 [id number] Ambulatory BMSBuilding: [place] 18 BMS.[facility] Repository 08/16/2018/09/03/20 [id number] Ambulatory [address] Repository 08/01/2018/08/02/20 [id number] Ambulatory [address] Repository 07/31/2018/07/31/20 [id number] Ambulatory BMSBuilding: [place] 18 BMS.[facility] Repository 07/17/2018/07/18/20 [id number] Ambulatory [address] Repository 07/09/2018 [id number] Ambulatory BMSBuilding: [place] [facility] Repository 07/07/2018/07/10/20 [id number] [place], Inpatient [place] [address] [place] [facility] ding:FY7Foji Repository : TV520Elz: 1 07/07/2018 [id number] [place], Ambulatory BMSBuilding: [place] BMS.[facility] Repository 07/07/2018 [id number] [place], Ambulatory BMSBuilding: [place] BMS.[facility] Repository 07/07/2018 [id number] [place], Ambulatory BMSBuilding: [place] BMS.[facility] Repository 07/07/2018 [id number] [place], Ambulatory BMSBuilding: [place] BMS.[facility] Repository 07/07/2018/07/10/20 [id number] Ambulatory BMSBuilding: [place] 18 BMS.[facility] Repository 07/03/2018/07/17/20 [id number] Ambulatory [address] Repository 06/29/2018/06/29/20 [id number] Emergency [address] ding:ED Repository 06/27/2018/06/27/20 [id number] Emergency [address] ding:ED Repository 06/07/2018/06/08/20 [id number] Ambulatory [address] Repository 05/29/2018/05/29/20 [id number] Emergency [address] ding:ED Repository 05/27/2018/05/28/20 [id number] Ambulatory [address] [place] Repository 05/17/2018/05/31/20 [id number] Ambulatory [address] Repository 04/27/2018/04/30/20 [id number] Ambulatory [address] Main [place] Repository 04/20/2018/04/23/20 [id number] Ambulatory [address] [place] Repository 04/17/2018/04/18/20 [id number] Emergency [address] Other [place] Repository 04/17/2018/04/18/20 [id number] Emergency [facility] [address] MEDICAL Repository CENTERBuildi ng:AKEDRoom: EDBed: 04/17/2018/04/17/20 [id number] Emergency [address] ding:ED Repository 04/14/2018/04/14/20 [id number] Emergency [address] ding:ED Repository 04/06/2018/05/21 [id number] Ambulatory [address] Main [place] Repository 04/04/2018/04/04/20 [id number] Ambulatory [address] Repository 04/04/2018/04/06/20 [id number] Ambulatory [address] Repository 03/26/2018/04/04/20 [id number] Ambulatory [address] Repository 03/11/2018/03/11/20 [id number] Emergency [place] 18 [facility] ding:ED Repository 03/01/2018/03/01/20 [id number] Ambulatory [address] Repository 03/01/2018/03/12/20 [id number] Ambulatory [address] Repository 02/18/2018/02/19/20 [id number] Ambulatory BMSBuilding: [address] Repository 01/25/2018/01/31/20 [id number] Ambulatory [address] Repository 01/12/2018/01/19/20 [id number] Ambulatory [address] Repository 01/09/2018/01/17/20 [id number] Ambulatory [address] Repository 01/03/2018/01/23/20 [id number] Ambulatory [address] Repository PAYERS PAYERS ENCOUNTER GUARANTOR PAYER SUBSCRIBER SOURCE 12/05/2018 EDEL [place] Primary EDEL [id number] [place] Insurance:CARESOURCEP BECKDOB: [facility] Number: [id number] Hospital 15909Dbc: [phone]) [id number] Repository [phone] () Date:2018-12-05[address]ATTN: [place] [address]DT: 12/05/2018 Secondary NOT GIVENUNK [place] Insurance:SELF PAY [facility] Number: Effective Repository Date:2018-12-05 11/18/2018 EDEL [place] Primary EDEL Marisa [place] [id number] [place] [facility] Number: [id number] Hospital 70124Qob: [phone]) [id number] Repository [phone] () Date:2018-11-18[address]ATTN: [place] [address]EN: 11/18/2018 Secondary NOT GIVENUNK [place] Insurance:SELF PAY [facility] Number: Effective Repository Date:2018-11-18 11/18/2018 EDEL K Primary EDEL K [place] [id number] [place] Insurance:CARESOURCEP BECKDOB: [facility] [place] Number: [id number] Hospital 10772Xxz: [phone]) [id number] Repository [phone] () Date:2018-11-18[address]ATTN: [place] [address]XU: 11/18/2018 Secondary NOT GIVENUNK [place] Insurance:SELF PAY [facility] Number: Effective Repository Date:2018-11-18 11/17/2018 EDEL K Primary EDEL K [place] [id number] [place] Insurance:CARESOURCEP BECKDOB: [facility] [place] Number: [id number] Hospital 31928Fdq: [phone]) [id number] Repository [phone] () Date:2018-11-17[address]ATTN: [place] [address]UY: 11/17/2018 Secondary NOT GIVENUNK [place] Insurance:SELF PAY [facility] Number: Effective Repository Date:2018-11-17 10/16/2018 EDEL K Primary EDEL K [place] [id number] [place] Insurance:CARESOURCEP BECKDOB: [place] Number: [id number] Hospital 22415Gbb: [phone]) [id number] Repository [phone] () Date:2018-10-15[address]ATTN: [place] [address]GY: 10/16/2018 Secondary NOT GIVENUNK [place] Insurance:SELF PAY [facility] Number: Effective Repository Date:2018-10-16 10/15/2018 EDEL K Primary EDEL K [place] [id number] [place] Insurance:CARESOURCEP BECKDOB: [facility] Number: [id number] Hospital 08603Yke: [phone]) [id number] Repository [phone] () Date:2018-10-15[address]ATTN: [place] [address]OM: 10/15/2018 Secondary NOT GIVENUNK [place] Insurance:SELF PAY [facility] Number: Effective Repository Date:2018-10-15 10/15/2018 EDEL K Primary EDEL Marisa [place] [id number] [place] Insurance:CARESOURCEP BECKDOB: [facility] Number: [id number] Hospital 46018Bts: [phone]) [id number] Repository [phone] () Date:2018-10-15[address]ATTN: [place] [address]GE: 10/15/2018 Secondary NOT GIVENUNK [place] Insurance:SELF PAY [facility] Number: Effective Repository Date:2018-10-15 10/14/2018 EDEL [place] Primary EDEL Marisa [place] [id number] [place] Insurance:CARESOURCEP BECKDOB: [facility] Number: [id number] Hospital 41624Agt: [phone]) [id number] Repository [phone] () Date:2018-10-14[address]ATTN: [place] [address]AO: 10/14/2018 Secondary NOT GIVENUNK [place] Insurance:SELF PAY [facility] Number: Effective Repository Date:2018-10-14 10/07/2018 EDEL K Primary EDEL K [place] [id number] [place] Insurance:CARESOURCEP BECKDOB: [facility] Number: [id number] Hospital 26061Xns: [phone]) [id number] Repository [phone] () Date:2018-10-07[address]ATTN: [place] [address]CW: 10/07/2018 Secondary NOT GIVENUNK [place] Insurance:SELF PAY [facility] Number: Effective Repository Date:2018-10-07 09/25/2018 EDEL K Primary EDEL K [place] [id number] [place] Insurance:CARESOURCEP BECKDOB: [facility] Number: [id number] Hospital 68442Lwf: [phone]) [id number] Repository [phone] () Date:2018-08-31 [address]ATTN: [place] [address]ZD: 09/25/2018 Secondary NOT GIVENUNK [place] Insurance:SELF PAY [facility] Number: Effective Repository Date:2018-09-25 07/31/2018 EDEL K Primary EDEL K [place] [id number] [place] Insurance:CARESOURCEP BECKDOB: [facility] Number: [id number] Hospital 23787Gmi: [phone]) [id number] Repository [phone] () Date:2018-06-20[address]ATTN: [place] [address]QO: 07/31/2018 Secondary NOT GIVENUNK [place] Insurance:SELF PAY [facility] Number: Effective Repository Date:2018-07-31 07/09/2018 EDEL K Primary EDEL K [place] [id number] [place] Insurance:CARESOURCEP BECKDOB: [facility] Number: [id number] Hospital 63992Zom: [phone] [id number] Repository [phone] () Date:2018-07-07 [address]ATTN: [place] [address]AB: 07/09/2018 Secondary NOT GIVENUNK [place] Insurance:SELF PAY [facility] Number: Effective Repository Date:2018-07-09 07/07/2018 EDEL K Primary EDEL K [place] [id number] [place] Insurance:CARESOURCEP BECKDOB: [facility] Number: [id number] Hospital 71260Ciz: [phone]) [id number] Repository [phone] () Date:2018-07-07[address]ATTN: [place] [address]RZ: 07/07/2018 Secondary NOT GIVENUNK [place] Insurance:SELF PAY [facility] Number: Effective Repository Date:2018-07-07 07/07/2018 EDEL K Primary EDEL K [place] [id number] [place] Insurance:CARESOURCEP BECKDOB: [facility] Number: [id number] Hospital 57723Bka: [phone]) [id number] Repository [phone] () Date:2018-07-07[address]ATTN: [place] [address]BR: 07/07/2018 Secondary NOT GIVENUNK [place] Insurance:SELF PAY [facility] Number: Effective Repository Date:2018-07-07 07/07/2018 EDEL K Primary EDEL K [place] [id number] [place] Insurance:CARESOURCEP BECKDOB: [facility] Number: [id number] Hospital 25464Job: [phone]) [id number] Repository [phone] () Date:2018-07-07[address]ATTN: [place] [address]UR: 07/07/2018 Secondary NOT GIVENUNK [place] Insurance:SELF PAY [facility] Number: Effective Repository Date:2018-07-07 07/07/2018 EDEL K Primary EDEL K [place] [id number] [place] Insurance:CARESOURCEP BECKDOB: [facility] Number: [id number] Hospital 92112Gam: [phone]) [id number] Repository [phone] () Date:2018-07-07[address]ATTN: [place] [address]HH: 07/07/2018 Secondary NOT GIVENUNK [place] Insurance:SELF PAY [facility] Number: Effective Repository Date:2018-07-07 07/07/2018 EDEL K Primary EDEL K [place] [id number] [place] Insurance:CARESOURCEP BECKDOB: [facility] Number: [id number] Hospital 21378Upi: [phone]) [id number] Repository [phone] () Date:2018-07-07 [address]ATTN: [place] [address]VT: 07/07/2018 Secondary NOT GIVENUNK [place] Insurance:SELF PAY [facility] Number: Effective Repository Date:2018-07-07 07/07/2018 EDEL K Primary EDEL K [place] [id number] [place] Insurance:CARESOURCEP BECKDOB: [facility] Number: [id number] Hospital 68971Pqx: [phone]) [id number] Repository [phone] () Date:2018-07-07 [address]ATTN: [place] [address]SO: 07/07/2018 Secondary NOT GIVENUNK [place] Insurance:SELF PAY [facility] Number: Effective Repository Date:2018-07-07 06/29/2018 EDEL K Primary EDEL K [place] [id number] [place] Insurance:CARESOURCEP BECKDOB: [facility] Number: [id number] Hospital 52621Twz: ([phone]) [id number] Repository [phone] () Date:2018-06-29 [address]ATTN: [place] [address]RY: 06/29/2018 Secondary NOT GIVENUNK [place] Insurance:SELF PAY [facility] Number: Effective Repository Date:2018-06-29 06/27/2018 EDEL K Primary EDEL K [place] [id number] [place] Insurance:CARESOURCEP BECKDOB: [facility] Number: [id number] Hospital 43957Kkn: [phone]) [id number] Repository [phone] (HP) Date:2018-06-27[address]ATTN: [place] [address]UZ: 06/27/2018 Secondary NOT GIVENUNK [place] Insurance:SELF PAY [facility] Number: Effective Repository Date:2018-06-27 05/29/2018 EDEL K Primary EDEL K [place] [id number] [place] Insurance:CARESOURCEP BECKDOB: [facility] Number: [id number] Hospital 775[address]Tbk: [phone]) [id number] Repository [phone] () Date:2018-05-29[address]ATTN: [place] [address]GI: 05/29/2018 Secondary NOT GIVENUNK [place] Insurance:SELF PAY [facility] Number: Effective Repository Date:2018-05-29 04/17/2018 EDEL K Primary EDEL K [facility] BECKDOB: Insurance:CARESOURCE BECKDOB: [facility] MEDICAIDPolicy [id number] Repository RICE Number: [facility] [place] [id number] [address]Zmk: (451) Date: [id number] () 04/17/2018 EDEL K Primary EDEL K [place] [id number] [place] Insurance:CARESOURCEP BECKDOB: [facility] Number: [id number] Hospital 56175Flm: [phone]) [id number] Repository [phone] () Date:2018-04-17[address]ATTN: [place] [address]HN: 04/17/2018 Secondary NOT GIVENUNK [place] Insurance:SELF PAY [facility] Number: Effective Repository Date:2018-04-17 04/14/2018 EDEL K Primary EDEL K [place] [id number] [place] Insurance:CARESOURCEP [facility]OB[facility] Number: [id number] Hospital 39[address]Jsz: ([phone]) [id number] Repository [phone] () Date:2018-04-14[address]ATTN: [place] [address]FJ: 04/14/2018 Secondary NOT GIVENUNK [place] Insurance:SELF PAY [facility] Number: Effective Repository Date:2018-04-14 03/11/2018 EDEL K Primary EDEL K [place] [id number] [place] Insurance:CARESOURCEP BECKDOB: [facility] Number: [id number] Hospital 26268Jhm: [phone]) [id number] Repository [phone] () Date:2018-03-11[address]ATTN: [facility]S [place] [address]QO: 03/11/2018 Secondary NOT GIVENUNK [place] Insurance:SELF PAY [facility] Number: Effective Repository Date:2018-03-11 02/18/2018 EDEL K Primary EDEL K [place] [id number] [place] Insurance:CARESOURCEP BECKDOB: [facility] Number: [id number] Hospital 45977Rod: [phone]) [id number] Repository [phone] () Date:2018-02-18[address]ATTN: [place]S [place] [address]HH: 02/18/2018 Secondary NOT GIVENUNK [place] Insurance:SELF PAY [facility] Number: Effective Repository Date:2018-02-18
== END 2018-12-05 13:06 | disposition home or self-care (01) ==
PROVIDERS: Emergency Provider Emergency Medicine; Family Provider Internal Medicine; PCP Internal Medicine
DX: M79.605 Pain in left leg (principal); E11.9 Type 2 diabetes mellitus without complications; I10 Essential (primary) hypertension; J45.909 Unspecified asthma, uncomplicated; F31.9 Bipolar disorder, unspecified; I87.8 Other specified disorders of veins
CPT/HCPCS: 80048; 85025; 93971; 99284; A4216

== ENCOUNTER 2019-04-02 10:55 | Emergency (ER) | payer MEDICAID, SELFPAY ==
[2019-04-02 10:55] VITALS: BP 161/103; PULSE 64; RESP 20; TEMP 36.4; O2SAT 96; BMI 51.9
--- NOTE | 2019-04-02 12:06 | EKG12_ITS ---
Test Reason : SOB Blood Pressure : / mmHG Vent. Rate : 062 BPM Atrial Rate : 062 BPM P-R Int : 186 ms QRS Dur : 100 ms QT Int : 412 ms P-R-T Axes : 043 -02 -26 degrees QTc Int : 418 ms Normal sinus rhythm ST & T wave abnormality, consider anterolateral ischemia Abnormal ECG Confirmed by AKHIL LINDA ([id number]), editorial project manager EM QUINTERO ([id number]) on 04/08/2019 3:39:20 PM Referred By: MARY Confirmed By:AKHIL LINDA
--- NOTE | 2019-04-02 12:08 | ED.VISSUMM ---
- ER Visit Summary Date of Service: 04/02/19 Chief Complaint: Cough and shortness of breath History of Present Illness: The patient is a 53 F she has insulin diabetes hypertension, asthma, COPD and bipolar disorder. Patient states she has had a cough for last several days of brownish sputum. And shortness of breath. No chest pain. No hemoptysis. No history of DVT or PE. No recent immobilization, leg pain or swelling. Physical Examination: Well-appearing middle-aged female no acute distress. Vital signs are stable initial pulse ox 96% on room air no hypoxia. HEENT exam unremarkable. TMs normal in the left and right. Posterior pharynx moist and pink no trouble swallowing or drooling. Neck nontender trachea midline. Lungs clear to auscultation bilaterally prolonged expiratory phase but no wheezing currently. Heart regular rhythm no murmur. Abdomen obese but soft and nontender. Patient is moving all 4 extremities. Equal symmetrical radial pulses. Calves are nontender without edema. Neurologically she is awake alert with no focal motor deficits. Test Results: EKG shows normal sinus rhythm. Rate is 62. Inverted T waves and in the anterior lateral leads but unchanged from prior EKG from June 2018. Chest x-ray portable one view shows an elevated right hemidiaphragm which is chronic. No acute infiltrate. Borderline cardiomegaly again unchanged from prior chest x-ray from 2018. Emergency Department Course and Treatment: Patient treated with p.o. prednisone 60 mg. DuoNeb and albuterol aerosols. Her history and exam are consistent with acute exacerbation of asthma and COPD secondary to bronchitis. Repeat exam patient is doing much better at 1510. No wheezing. Much better air movement. She is comfortable being discharged home. Treatment Plan: Prednisone 40 mill grams a day for 1 week. Watch her blood sugars closely. May DC the prednisone if she is feeling well enough. Inhalers at home as needed. Follow-up with her primary. Disposition: Discharge Impression: Acute dyspnea secondary to exacerbation of asthma and COPD Acute bronchitis History of diabetes This note was generated with [facility] dictation software. It may contain incorrect words, spelling, and punctuation that were not noted in review of the chart prior to signing ED Disposition - Plan for ED Patient: Referrals: Cristal Wolf MD [Primary Care Provider] -
[2019-04-02 12:19] VITALS: PULSE 67; RESP 21
[2019-04-02] MEDS: Ipratropium/Albuterol Sulfate 3 ML AMPUL.NEB INHALATION (12:19)
[2019-04-02] MEDS: Albuterol 2.5 MG/3 ML VIAL.NEB. INHALATION ×2 (12:19)
[2019-04-02] MEDS: predniSONE 20 MG Tablet 60 MG PO (12:24)
--- NOTE | 2019-04-02 12:47 | RAD_ITS ---
STUDY: X-RAY CHEST REASON FOR EXAM: Female, 53 years old. Dyspnea. Shortness of breath. TECHNIQUE: Single AP portable view of the chest. COMPARISON: Comparison is made with prior study dated June 29, 2018. FINDINGS: There is elevation of the right hemidiaphragm. The lungs are clear. No acute abnormality is seen. There is no demonstrated pleural abnormality. Normal size heart. Normal mediastinum and keli. Normal visualized pulmonary arteries. Normal visualized aortic arch and descending thoracic aorta. There are diffuse degenerative changes of the visualized thoracic spine. Normal visualized ribs, clavicles, and shoulders. There is no demonstrated abnormality of the visualized soft tissue structures of the upper abdomen. RAD/Chest 1 View (Portable) IMPRESSION: Stable elevation of the right hemidiaphragm. No acute abnormality is seen. Electronically Signed: Kevin Gaxiola, at 13:40 EDT , Service support ,
[2019-04-02 13:29] VITALS: PULSE 63; RESP 20; O2SAT 97
--- NOTE | 2019-04-02 15:13 | ED.DEP ---
ED Disposition - Plan for ED Patient: Disposition: Home or Assisted Living Instructions: ED Bronchitis Asthmatic Prescriptions: Prednisone [Deltasone] 40 mg PO DAILY 7 Days tab Referrals: Cristal Wolf MD [Primary Care Provider] - 3-5 Days if not improving Additional Instructions: Prednisone 40 mg a day. Watch her blood sugars closely. Follow-up with your doctor if not improving or feeling worse return to the ER.
[2019-04-02 15:21] VITALS: BP 158/104; PULSE 68; RESP 20; O2SAT 95
== END 2019-04-02 15:22 | disposition home or self-care (01) ==
PROVIDERS: Emergency Provider Emergency Medicine; Family Provider Internal Medicine; PCP Internal Medicine
DX: J44.0 Chronic obstructive pulmonary disease with (acute) lower respiratory infection (principal); J20.9 Acute bronchitis, unspecified; J45.901 Unspecified asthma with (acute) exacerbation; E11.9 Type 2 diabetes mellitus without complications; I10 Essential (primary) hypertension; F31.9 Bipolar disorder, unspecified; Z79.4 Long term (current) use of insulin
CPT/HCPCS: 71045; 93005; 94640; 99283

== ENCOUNTER 2019-04-12 09:08 | Emergency (ER) | payer MEDICAID, SELFPAY ==
[2019-04-12 09:09] VITALS: BP 105/60; PULSE 73; RESP 18; TEMP 37.4; O2SAT 91; BMI 51.2
--- NOTE | 2019-04-12 09:20 | VDLE_ITS ---
Reason For Study: Pain Procedure LEFT Exam performed portable in ED. GSV is normal. A preliminary report was called and/or faxed CFV is compressible, spontaneous, phasic, to Dr. Bailye. competent, and demonstrates normal augmentation. FV is compressible, spontaneous, phasic, competent and demonstrates normal augmentation. POP V is compressible, spontaneous, phasic, competent and demonstrates normal augmentation. T/P Trunk is compressible. PTV is compressible. LT PerV is compressible. Interpretation Summary There is no evidence of left lower extremity deep vein thrombosis. Left greater saphenous vein appears patent and compressible segmentally. Ordering Physician: Marek Bailey Referring Physician: India Portillo Performed By: Estella Devlin RVT
--- NOTE | 2019-04-12 09:21 | ED.VISSUMM ---
- ER Visit Summary Date of Service: 04/12/19 Chief Complaint: Left calf pain History of Present Illness: The patient is a 53 F who presents with left calf pain that began last night but became worse today. Patient states the pain is sharp. Patient states the pain is worse with any pressure to the calf. Patient does admit to some tingling in her lower leg and toes. Patient denies any weakness. Patient states she does have a history of DVT 15 years ago and 30 years ago. Patient is not currently on any anticoagulants. Patient called her primary care physician who referred her to the emergency department for possible DVT evaluation. Physical Examination: Vital signs are stable. Patient is afebrile. Patient is in no acute distress. Musculoskeletal exam reveals tenderness over the left calf. There is no edema. There is pain with dorsiflexion of the left ankle. Pulses are equal bilaterally. Sensation was intact to light touch bilaterally in the lower extremities. Capillary refill is less than 2 seconds in all digits. There is an open wound over the anterior aspect of the left leg which is chronic. There is some scar tissue noted around the wound and along the anterior aspect of the leg. There is no tenderness around this area. There is no purulent discharge or drainage. Test Results: Venous duplex of the left lower extremity was obtained. There is no DVT noted. Emergency Department Course and Treatment: Patient was given a dose of [place] here. Patient was instructed to ice and elevate the left leg. Patient was instructed to continue her pain medications as previously prescribed. Patient was instructed to follow-up with her primary care physician in 5 to 7 days for reevaluation. Patient understood and was agreeable with the plan. All questions were answered. Disposition: Discharge home Impression: Left leg pain This note was generated with [employer] dictation software. It may contain incorrect words, spelling, and punctuation that were not noted in review of the chart prior to signing ED Disposition - Plan for ED Patient: Disposition: Home or Assisted Living Diagnosis: Left leg pain Instructions: ED Strain Muscle Ext Referrals: Cristal Wolf MD [Primary Care Provider] - 5-7 Days
[2019-04-12] MEDS: HYDROcodone Bitartrate/Apap 5/325 Tablet PO (09:34)
[2019-04-12 11:10] VITALS: RESP 18
== END 2019-04-12 11:11 | disposition home or self-care (01) ==
PROVIDERS: Emergency Provider Emergency Medicine; Family Provider Internal Medicine; PCP Internal Medicine
DX: M79.605 Pain in left leg (principal); R11.0 Nausea; R06.00 Dyspnea, unspecified; E66.9 Obesity, unspecified; E11.9 Type 2 diabetes mellitus without complications; I10 Essential (primary) hypertension; K21.9 Gastro-esophageal reflux disease without esophagitis; J44.9 Chronic obstructive pulmonary disease, unspecified; G47.33 Obstructive sleep apnea (adult) (pediatric); G89.29 Other chronic pain; Z86.718 Personal history of other venous thrombosis and embolism
CPT/HCPCS: 93971; 99282

== ENCOUNTER 2019-06-15 13:28 | Emergency (ER) | payer MEDICAID, SELFPAY ==
[2019-06-15 13:29] VITALS: BP 122/55; PULSE 86; RESP 16; TEMP 36.7; O2SAT 95; BMI 53.9
--- NOTE | 2019-06-15 13:45 | RAD_ITS ---
STUDY: X-RAY - RIGHT ANKLE REASON FOR EXAM: Female, 53 years old. Right ankle pain after falling today TECHNIQUE: 3 view(s) of the ankle. COMPARISON: None. FINDINGS: Normal visualized distal tibia and fibula. Normal medial and lateral malleoli. Normal tibiotalar articulation and ankle mortise. There is a calcaneal spur. Vascular phleboliths are noted. Degenerative changes of the dorsal midfoot. The soft tissue structures are unremarkable. RAD/Ankle min 3 Views IMPRESSION: 1. No fracture or malalignment. Electronically Signed: Fernando Henson MD at 14:31 EDT , Service support ,
--- NOTE | 2019-06-15 13:45 | RAD_ITS ---
STUDY: X-RAY - RIGHT ELBOW REASON FOR EXAM: Female, 53 years old. Right elbow pain after falling, abrasion TECHNIQUE: 3 view(s) of the elbow. COMPARISON: None. FINDINGS: Normal visualized humerus, radius and ulna. Normal radiocapitellar and ulnotrochlear articulations. There is soft tissue swelling of the proximal posterior forearm. RAD/Elbow min 3 Views IMPRESSION: Proximal forearm soft tissue swelling without demonstrated fracture. Electronically Signed: Fernando Henson MD at 14:29 EDT , Service support ,
--- NOTE | 2019-06-15 13:45 | RAD_ITS ---
STUDY: X-RAY - RIGHT FOOT CLINICAL: Female, 53 years old. Right foot pain after falling today TECHNIQUE: 3 view(s) of the foot. COMPARISON: None. FINDINGS: There is a plantar calcaneal spur. Arthrosis of the dorsal midfoot articulations. Normal metatarsi. There is degenerative arthrosis of the metatarsophalangeal joint of the hallux . Normal tibial and fibular sesamoid bones. Normal interphalangeal joint of the great toe. Normal phalanges of the great toe. Normal second through fifth metatarsophalangeal joints. Normal interphalangeal joints and phalanges of the lesser toes. The soft tissue structures are unremarkable. RAD/Foot min 3 Views IMPRESSION: No fracture or malalignment. Electronically Signed: Fernando Henson MD at 14:34 EDT , Service support ,
--- NOTE | 2019-06-15 13:45 | RAD_ITS ---
STUDY: X-RAY - RIGHT KNEE REASON FOR EXAM: Female, 53 years old. Right knee pain after falling today TECHNIQUE: 4 view(s) of the knee. COMPARISON: 05/22/2016 FINDINGS: Normal visualized distal femur. Normal visualized proximal tibia and fibula. Normal proximal tibiofibular articulation. There is mild degenerative arthrosis of the medial femorotibial compartment. There is mild degenerative arthrosis of the lateral femorotibial compartment. There is moderate degenerative arthrosis of the patellofemoral articulation. There is no demonstrated joint effusion. Eggshell calcifications along the medial knee are grossly similar and may represents an old injury or venous phleboliths. RAD/Knee 4 or More Views IMPRESSION: No fracture or malalignment. Degenerative changes. Electronically Signed: Fernando Henson MD at 14:33 EDT , Service support ,
--- NOTE | 2019-06-15 13:46 | ED.VISSUMM ---
- ER Visit Summary Date of Service: 06/15/19 Chief Complaint: Fall History of Present Illness: The patient is a 53 F who presents after a fall that occurred today. Patient states she was walking on the sidewalk and missed a step. Patient fell onto her right side. Patient injured her right knee, right elbow, right ankle, and right second toe. Patient states the ice has been helping with her knee pain. Patient describes her pain as throbbing. Patient did hit her head but denies any loss of consciousness. Patient states she has had some nausea and had a headache recently but currently denies any headaches. Patient denies any paresthesias or weakness. Patient states her last tetanus was less than 5 years ago. Physical Examination: Vital signs are stable. Patient is afebrile. Patient is in no acute distress. Skin is warm dry. There is a superficial abrasion on the posterior aspect of the right elbow. There is no active bleeding noted. There is also superficial abrasion on the dorsal aspect of her right second toe. There is tenderness, edema, and ecchymosis over the right knee. There is no deformity noted. Range of motion was limited in all motions of the right knee and right ankle secondary to pain. There is also tenderness over the right elbow and lateral malleolus of the right ankle. There is no deformity noted. Sensation was intact to light touch bilaterally upper and lower extremities. Radial and pedal pulses are equal bilaterally. Test Results: X-rays of the right elbow were obtained. There is no acute fracture. X-rays of the right knee were obtained. There are degenerative changes but no acute fracture. X-rays of the right ankle were obtained. There are degenerative changes but no acute fracture. X-rays of the right foot were obtained. There are some degenerative changes but no acute fracture. Emergency Department Course and Treatment: Patient was given an ice pack. Patient was given a dose of [place] here. Bacitracin dressing was applied to the abrasions. Patient was instructed to continue to ice and elevate the right knee and right elbow. Patient was instructed to follow-up with her primary care physician in 5 to 7 days. Patient was instructed to continue her tramadol as needed for pain. Patient understood and was agreeable with the plan. All questions were answered. Disposition: Discharge home Impression: 1. Right knee contusion 2. Right ankle sprain 3. Right second toe abrasion 4. Right elbow abrasion 5. Right elbow contusion This note was generated with [employer] dictation software. It may contain incorrect words, spelling, and punctuation that were not noted in review of the chart prior to signing ED Disposition - Plan for ED Patient: Disposition: Home or Assisted Living Diagnosis: Contusion of right knee, initial encounter, Right ankle sprain, Abrasion of right elbow, initial encounter, Abrasion of second toe of right foot, Contusion of right elbow, initial encounter Instructions: FALL, Mechanical, CONTUSION, Lower Extremity, Abrasion Referrals: Cristal Wolf MD [Primary Care Provider] - 5-7 Days
[2019-06-15] MEDS: HYDROcodone Bitartrate/Apap 5/325 Tablet PO (13:54)
== END 2019-06-15 15:38 | disposition home or self-care (01) ==
PROVIDERS: Emergency Provider Emergency Medicine; Family Provider Internal Medicine; PCP Internal Medicine
DX: S50.01XA Contusion of right elbow, initial encounter (principal); S50.311A Abrasion of right elbow, initial encounter; S80.01XA Contusion of right knee, initial encounter; S80.211A Abrasion, right knee, initial encounter; S93.401A Sprain of unspecified ligament of right ankle, initial encounter; W01.0XXA Fall on same level from slipping, tripping and stumbling without subsequent striking against object, initial encounter; Y92.480 Sidewalk as the place of occurrence of the external cause; Y93.01 Activity, walking, marching and hiking; E11.9 Type 2 diabetes mellitus without complications; I10 Essential (primary) hypertension; F31.9 Bipolar disorder, unspecified; F43.10 Post-traumatic stress disorder, unspecified
CPT/HCPCS: 73080; 73564; 73610; 73630; 99285

== ENCOUNTER 2019-06-24 13:13 | Emergency (ER) | payer MEDICAID, SELFPAY ==
[2019-06-24 13:16] VITALS: BP 150/84; PULSE 70; RESP 18; TEMP 36.6; O2SAT 93; BMI 51.9
--- NOTE | 2019-06-24 14:04 | VDLE_ITS ---
Reason For Study: Pain RIGHT GSV is normal. CFV is compressible, spontaneous, phasic, competent and demonstrates normal augmentation. FV is compressible, spontaneous, phasic, competent and demonstrates normal augmentation. POP V is compressible, spontaneous, phasic, competent and demonstrates normal augmentation. T/P Trunk is compressible. PTV is compressible. RT PerV is compressible. Procedure Exam performed portable in ED. A preliminary report was called and/or faxed to ED. Interpretation Summary There is no evidence of right lower extremity deep vein thrombosis. Right great saphenous vein appears patent and compressible segmentally. Ordering Physician: Eliza Aldana Referring Physician: Cristal Wolf M.D. Performed By: Estella Devlin RVT
[2019-06-24] MEDS: Morphine 4 MG/ML Syringe IV (14:21)
[2019-06-24] MEDS: Ondansetron 4 MG/2 ML Vial IV (14:21)
[2019-06-24] MEDS: 0.9% Normal Saline 1,000 ML 150 ML IV (14:21)
[2019-06-24 14:54] LABS: Absolute Lymphocyte Count 0.58 X10^3/uL (0.83-4.51); Absolute Neutrophil Count 2.9 X10^3/uL (2.0-7.7); Eosinophil# 0.01 X10^3/uL; Eosinophils% 0.3 % (0-5); Hemoglobin 10.7 g/dL (12.0-15.0); Lymphocyte # 0.58 X10^3/ul (4.0); Lymphocyte % 15.2 % (19-41); Mean Corp Hgb Conc 31.5 g/dL (32-36); Mean Corpuscular Hgb 25.9 pg (27.0-32.0); Mean Corpuscular Volume 82.3 fL (81-99); Mean Platelet Vol. 10.1 fl (6.2-12.0); Monocyte# 0.35 X10^3/uL; Monocyte% 9.2 % (0-10); NRBC Flagged by Analyzer 0 % (0-5); Neutrophil # 2.86 X10^3/uL (2.7-7.7); Neutrophil % 74.8 % (47-70); POSITIVE DIFFERENTIAL YES; Platelet Count 145 K/mm3 (150-450); RBC Distribution Width CV 14.8 % (11.6-14.6); RBC Distribution Width SD 43.8 fl (35.1-43.9); Red Blood Count 4.13 M/mm3 (4.2-5.4); White Blood Count 3.8 K/mm3 (4.4-11.0)
[2019-06-24 15:00] LABS: Differential Indicated SCAN CRITERIA MET
[2019-06-24 15:10] LABS: Anion Gap 6 (5-15); BUN 13 mg/dL (7-18); Calcium,Total 8.9 mg/dL (8.5-10.1); Chloride 102 mmol/L (98-107); Creatinine, Serum 0.76 mg/dL (0.55-1.02); EST Glomerular Filtration Rate 83 mL/min (>60); Est Glom Filt Rate - Afr Amer 101 mL/min (>60); Estimated Creatinine Clearance 75.26 ml/min; Glucose 217 mg/dL (74-106); Potassium 4.6 mmol/L (3.5-5.1); Sodium Level 138 mmol/L (136-145)
[2019-06-24] MEDS: Clindamycin HCl 150 MG Capsule 300 MG PO (15:11)
--- NOTE | 2019-06-24 15:11 | ED.VISSUMM ---
- ER Visit Summary Date of Service: 06/24/19 Chief Complaint: [Pain to left leg] History of Present Illness: The patient is a 53 F [presents the emergency department with symptoms for about a week and a half. Patient states that he fell about a year ago and broke his left hip but denies any injury or trauma recently to his leg. Patient states that he recently started working 10 hours a day and is been on his feet quite a bit. Patient complaining of pain from the left knee down to his foot. Patient states that his foot feels numb and tingly today. He denies any back pain. He denies any sciatic symptoms which she has had in the past and has had surgery for. Patient denies any fevers. Denies any chest pain or shortness of breath. He denies recent travel.] Physical Examination: [HEENT-PERRLA, EOMI. Cranial nerves II through XII grossly intact. TMs clear. Mucous membranes moist. No adenopathy. Cardiovascular-regular rate and rhythm without murmur or ectopy Lungs-clear to auscultation, chest wall stable without crepitus or subcu emphysema Abdomen-normoactive bowel sounds, soft, nontender, no rebound or rigidity, no peritoneal signs. Extremities-intact ?4, normal range of motion, normal pulses, atraumatic. Left knee-patient has mild diffuse tenderness palpation. There is no erythema or warmth noted. There is no joint effusion. He has normal range of motion flexion extension. He is neurovascular intact. Patient has normal popliteal pulses as well as dorsal pedal and posterior tibial. Normal cap refill.] Test Results: [Venous duplex was negative for DVT. Patient also had x-rays of the left knee which were normal.] Emergency Department Course and Treatment:[] Treatment Plan: [Patient will be given work restrictions. Patient given a prescription for [place] for pain. Patient will be given referral to primary care physician for follow-up. Etiology of pain is unclear.] Disposition: [Discharged home stable condition] Impression: [Left leg pain Paresthesias] This note was generated with [employer] software. It may contain incorrect words, spelling, and punctuation that were not noted in review of the chart prior to signing ED Disposition - Plan for ED Patient: Referrals: Cristal Wolf MD [Primary Care Provider] -
[2019-06-24 15:13] LABS: Differential Comment SCANNED
--- NOTE | 2019-06-24 15:14 | DCINST.ED_ITS ---
ED Disposition - Plan for ED Patient: Diagnosis: UTI (urinary tract infection) Instructions: Cellulitis Prescriptions: Clindamycin HCl [Cleocin] 300 mg PO Q6H #40 cap Prescription Printed Hydrocodone Bitart/Apap 5-325 [[place] 5MG-325MG] 1 tab PO Q4H PRN PRN 2 Days #10 tab PRN Reason: Pain Transmission Status: Pending to [facility] [facility] Referrals: Cristal Wolf MD [Primary Care Provider] - 3-5 Days
--- NOTE | 2019-06-24 15:58 | ED.VISSUMM ---
- ER Visit Summary Date of Service: 06/24/19 Chief Complaint: [Pain and swelling to right leg] History of Present Illness: The patient is a 53 F [presents the emergency department pain and swelling to her right leg that she noticed yesterday. Patient states that she had a fall on June 15 and was brought to the emergency department had x-rays but no fractures were noted at that time. Patient states that she has had chills for the last couple of days. She noticed increased redness to that leg. Patient also has history of prior DVT. She denies recent travel or surgery. Denies any chest pain or shortness of breath. Patient does have a history of diabetes, hypertension, bipolar disorder, fibromyalgia, and history of DVT.] Physical Examination: [HEENT-PERRLA, EOMI. Cranial nerves II through XII grossly intact. TMs clear. Mucous membranes moist. No adenopathy. Cardiovascular-regular rate and rhythm without murmur or ectopy Lungs-clear to auscultation, chest wall stable without crepitus or subcu emphysema Abdomen-normoactive bowel sounds, soft, nontender, no rebound or rigidity, no peritoneal signs. Extremities-intact ?4, normal range of motion, normal pulses. Right leg-patient has some faint erythema just proximal to the right ankle with some warmth noted to the area. Patient has several areas of ecchymosis and bruising to the anterior tibial area which are firm her prior fall. No lymphogenic streaking. She is neurovascular intact distally.] Test Results: [Venous Doppler of the right lower extremity was negative for DVT. CBC with differential showed a white count of 3.8, hemoglobin 10.7, hematocrit 34, platelets 145. Chemistries unremarkable.] Emergency Department Course and Treatment: [Patient was given clindamycin 300 mg p.o.] patient was given morphine and Zofran for pain. Treatment Plan: [Patient will be given a prescription for clindamycin and a few [place] for severe pain. Patient advised to follow-up with her primary care physician within next 3 to 5 days. Patient advised to return if increased redness, swelling, fevers, or conditions worsen anyway.] Disposition: [Discharged home stable condition.] Impression: [Cellulitis right lower extremity] This note was generated with [employer] dictation software. It may contain incorrect words, spelling, and punctuation that were not noted in review of the chart prior to signing ED Disposition - Plan for ED Patient: Diagnosis: UTI (urinary tract infection) Instructions: Cellulitis Prescriptions: Clindamycin HCl [Cleocin] 300 mg PO Q6H #40 cap Prescription Printed Hydrocodone Bitart/Apap 5-325 [[place] 5MG-325MG] 1 tab PO Q4H PRN PRN 2 Days #10 tab PRN Reason: Pain Transmission Status: Pending to [facility] [place] [place] Referrals: Cristal Wolf MD [Primary Care Provider] - 3-5 Days
[2019-06-25 13:36] LABS: Pathologist Review Reviewed
== END 2019-06-24 16:16 | disposition home or self-care (01) ==
PROVIDERS: Emergency Provider Emergency Medicine; Family Provider Internal Medicine; PCP Internal Medicine
DX: M79.605 Pain in left leg (principal); R20.2 Paresthesia of skin
CPT/HCPCS: 80048; 85025; 93971; 96361; 96374; 96375; 99285; J7030; A4216; J2405

== ENCOUNTER 2019-07-14 11:01 | Emergency (ER) | payer MEDICAID, SELFPAY ==
[2019-07-14 11:03] VITALS: BP 150/82; PULSE 96; RESP 16; TEMP 36.7; O2SAT 92; BMI 47.0
--- NOTE | 2019-07-14 11:09 | RAD_ITS ---
STUDY: X-RAY CHEST REASON FOR EXAM: Female, 53 years old. Fall 3 days ago, chest pain TECHNIQUE: PA and lateral views of the chest. COMPARISON: 04/02/2019 FINDINGS: Stable elevation of the right hemidiaphragm. No airspace consolidation. There is no demonstrated pleural abnormality. Normal size heart. Normal mediastinum and keli. Normal visualized pulmonary arteries. Normal visualized aortic arch and descending thoracic aorta. There are diffuse degenerative changes of the visualized thoracic spine. Normal visualized ribs, clavicles, and shoulders. There is no demonstrated abnormality of the visualized soft tissue structures of the upper abdomen. RAD/Chest PA and Lateral IMPRESSION: Stable, nonacute x-ray examination of the chest. Electronically Signed: Fernando Henson MD ([place]) at 11:47 EDT , Service support ,
--- NOTE | 2019-07-14 11:33 | ED.DCSUM_ITS ---
History of Present Illness Chief Complaint: Chest Other Informant: Patient Onset: Days Current Severity: Mild Narrative: Patient presents complaining of right chest wall pain for the last 3 days indicates she rolled out of bed inadvertently landed onto clothing iron she has a contusion to this area she has no abdominal pain she is a diabetic she is eating and drinking well bowel bladder habits been normal she is has persistent pain to this area, she is a left lower extremity chronic skin ulcer she is on Ultram for been using Ultram with minimal improvement presents for evaluation no fever no cough no chest pain or shortness of breath just pain to this area Past Medical History - Allergies and Home Meds Allergies/Adverse Reactions: Allergies vancomycin Allergy (Severe, Verified 07/14/19 11:03) BURNING RED RASH ON LEGGS cefazolin sodium [From Ancef] Allergy (Verified 07/14/19 11:03) Hives Penicillins Allergy (Verified 07/14/19 11:03) Hives sumatriptan [From Imitrex] Allergy (Verified 07/14/19 11:03) Shortness of breath Primary Care Physician: Cristal Wolf MD [Primary Care Provider] - Past Medical History: - - Diabetes skin ulcer left leg chronic pain see the above Surgical History: herniorrhaphy, hysterectomy, - - tubes in ears, knee scopes, dr malik for left anterior leg wound, hernia repair, carpal tunnel surgery bilateral Smoking Status: Never smoker - Family History Maternal Family History: Family History (Last Reviewed 10/16/18 @ 14:32 by Dana Sweet) Other Hypertension Kidney disease Family History: Reports: Heart Disease, Hypertension, Stroke Paternal Family History: Family History (Last Reviewed 10/16/18 @ 14:32 by Dana Sweet) Other Hypertension Kidney disease Family History: Reports: Hypertension, Stroke, - Review of Systems General: Denies: Chills, Fever, Sweats Eyes: Denies: Visual changes - bilaterally, Diplopia ENT: Denies: Rhinorrhea, Sore throat Cardiovascular: Denies: Chest pain, Palpitations Respiratory: Denies: Dyspnea, Cough, Dyspnea on exertion Gastrointestinal: Denies: Abdominal pain, Nausea, Vomiting, Diarrhea, Melena, Hematochezia Genitourinary: Denies: Dysuria, Hematuria, Frequency Musculoskeletal: Reports: Back pain. Denies: Extremity Pain Skin: Denies: Rash, Wounds Neurological: Denies: Headache, Weakness, Numbness Physical Exam Vital Signs/Narrative: Vital Signs Temp Pulse Resp BP Pulse Ox 07/14/19 11:03 98.1 F 96 16 150/82 H 92 General: Well nourished, Well developed, No Acute Distress Head: Normocephalic, Atraumatic Eyes: Perr[place], EOMI ENT: Moist mucous membranes, No rhinorrhea Neck: Supple, Nontender Cardiovascular: Regular rate, Regular rhythm, No murmurs, - - Is a area of contusion to the right chest area almost mid axillary line there is no crepitance subcu air no signs of obvious rib fracture her lungs are clear the heart tones are normal the abdomen soft and nontender Respiratory: No distress, CTA bilaterally, Chest nontender Abdomen: Soft, Nontender, Nondistended, Normal bowel sounds Back: Nontender, Normal Inspection Extremities: Nontender, No edema Skin: Normal color, No rash Neurological: Alert, Oriented x3, Cranial nerves II-XII grossly intact, Normal Strength, Normal Sensation Psychological: Normal affect, Normal Mood Diagnostic/Tx/Re-eval - Medical Decision Making Even all the above this is been gone for about 3 days now this was an accident she does have a circular contusion measuring about 3 cm there is no signs of infection crepitance subcu air chest x-rays obtained to look for chest injury and is unremarkable explained to the concept of occult chest injury such as rib fracture she was given one [place] tablet here she is to maintain herself on her Ultram and follow-up with her outpatient providers for further pain management options and she is comfortable with this plan Home stable Final impression Right chest wall injury after fall ED Disposition - Plan for ED Patient: Diagnosis: Soft tissue injury of right chest wall Instructions: Chest Wall Contusion Referrals: Cristal Wolf MD [Primary Care Provider] -
[2019-07-14] MEDS: HYDROcodone Bitartrate/Apap 5/325 Tablet PO (11:54)
[2019-07-14 12:52] VITALS: BP 109/65; PULSE 61; RESP 16
== END 2019-07-14 12:53 | disposition home or self-care (01) ==
LOC: ED 11:29
PROVIDERS: Emergency Provider Emergency Medicine; Family Provider Internal Medicine; PCP Internal Medicine
DX: S29.9XXA Unspecified injury of thorax, initial encounter (principal); W06.XXXA Fall from bed, initial encounter; Y93.9 Activity, unspecified; Y92.003 Bedroom of unspecified non-institutional (private) residence as the place of occurrence of the external cause; Y99.9 Unspecified external cause status; E11.9 Type 2 diabetes mellitus without complications; G89.29 Other chronic pain; Z88.0 Allergy status to penicillin; Z88.1 Allergy status to other antibiotic agents; Z90.710 Acquired absence of both cervix and uterus
CPT/HCPCS: 71046; 99282

== ENCOUNTER 2019-07-28 11:13 | Emergency (ER) | payer MEDICAID, SELFPAY ==
[2019-07-28 11:14] VITALS: BP 150/89; PULSE 55; RESP 17; TEMP 36.7; O2SAT 94; BMI 51.1
[2019-07-28] MEDS: 0.9% Normal Saline 1,000 ML 1000 ML IV (12:27)
[2019-07-28] MEDS: Dicyclomine 20 MG/2 ML Vial IM (12:28)
[2019-07-28] MEDS: Ondansetron 4 MG/2 ML Vial IV (12:28)
[2019-07-28] MEDS: Diphenoxylate/Atrop 1 Tablet 2 TABLET PO (12:28)
[2019-07-28 12:48] LABS: Absolute Lymphocyte Count 0.67 X10^3/uL (0.83-4.51); Absolute Neutrophil Count 2.3 X10^3/uL (2.0-7.7); Hematocrit 35.8 % (37-47); Hemoglobin 11.4 g/dL (12.0-15.0); Lymphocyte # 0.67 X10^3/ul (4.0); Lymphocyte % 20.4 % (19-41); Mean Corp Hgb Conc 31.8 g/dL (32-36); Mean Corpuscular Hgb 25.7 pg (27.0-32.0); Mean Corpuscular Volume 80.8 fL (81-99); Monocyte% 9.1 % (0-10); NRBC Flagged by Analyzer 0 % (0-5); Neutrophil % 70.2 % (47-70); Platelet Count 144 K/mm3 (150-450); Red Blood Count 4.43 M/mm3 (4.2-5.4); White Blood Count 3.3 K/mm3 (4.4-11.0)
[2019-07-28 13:52] LABS: Anion Gap 7 (5-15); BUN 10 mg/dL (7-18); BUN/Creat Ratio 17.1 RATIO (10-20); Calcium,Total 7.4 mg/dL (8.5-10.1); Chloride 108 mmol/L (98-107); Creatinine, Serum 0.59 mg/dL (0.55-1.02); EST Glomerular Filtration Rate 113 mL/min (>60); Est Glom Filt Rate - Afr Amer 137 mL/min (>60); Estimated Creatinine Clearance 96.95 ml/min; Glucose 210 mg/dL (74-106); Potassium 4.2 mmol/L (3.5-5.1); Sodium Level 141 mmol/L (136-145)
--- NOTE | 2019-07-28 14:09 | ED.VISSUMM ---
- ER Visit Summary Date of Service: 07/28/19 Chief Complaint: [Diarrhea] History of Present Illness: The patient is a 53 F [presents to the emergency department with complaint of diarrhea that started yesterday. Patient states she is had about 12 episodes. She had some nausea but no vomiting. Denies any fever although she had some chills. Patient states that she is been around her girlfriends daughter who had a stomach bug. Patient denies eating any suspicious or undercooked foods. Patient states she is had C. difficile before but this does not smell like C. difficile like C. difficile. She describes diffuse abdominal cramping. Patient has not been on antibiotics recently. She is had no recent travel. Patient has history of GERD, diabetes, COPD, and migraines. Patient has used Imodium at home without any success in stopping the diarrhea.] Physical Examination: [HEENT-PERRLA, EOMI. Cranial nerves II through XII grossly intact. TMs clear. Mucous membranes moist. No adenopathy. Cardiovascular-regular rate and rhythm without murmur or ectopy Lungs-clear to auscultation, chest wall stable without crepitus or subcu emphysema Abdomen-normoactive bowel sounds, soft. Patient has some mild diffuse tenderness on palpation. There is no rebound, rigidity, or perineal signs. Extremities-intact ?4, normal range of motion, normal pulses, atraumatic] Test Results: [CBC with differential obtained showed a white blood cell count of 3.3, hemoglobin 11, hematocrit 36, plates 144. Chemistries were unremarkable other than a slightly depressed calcium of 7.4. Patient had stool ordered for enteric pathogens however patient unable to reproduce a sample.] Emergency Department Course and Treatment: [Patient was medicated with Lomotil 2 tabs p.o. Patient was given a liter normal same fluid bolus.] Treatment Plan: [Patient will be discharged home I suspect likely viral etiology to her symptoms. Patient will be started on Lomotil. Patient advised to push fluids. Patient to follow-up with her primary care physician within next 3 to 5 days.] Disposition: [Discharged home stable condition.] Impression: [Diarrhea-viral] This note was generated with [employer] software. It may contain incorrect words, spelling, and punctuation that were not noted in review of the chart prior to signing ED Disposition - Plan for ED Patient: Referrals: Cristal Wolf MD [Primary Care Provider] -
--- NOTE | 2019-07-28 14:11 | ED.DEP ---
ED Disposition - Plan for ED Patient: Instructions: DIARRHEA, Viral (Child) (Adult) Prescriptions: Dicyclomine HCl [Bentyl] 20 mg PO TIDAC #20 cap Prescription Printed Diphenoxylate/Atrop [Lomotil] 1 tab PO 4X/DAY #20 tab Prescription Printed Referrals: Cristal Wolf MD [Primary Care Provider] - 3-5 Days
[2019-07-28 14:17] VITALS: BP 134/77; PULSE 81; RESP 15; O2SAT 98
[2019-07-28 14:25] LABS: Lactic Acid 2.2 mmol/L (0.4-2.0)
[2019-07-28 17:54] LABS: Reflex Lactate? Y
== END 2019-07-28 14:18 | disposition home or self-care (01) ==
LOC: ED 12:41
PROVIDERS: Emergency Provider Emergency Medicine; Family Provider Internal Medicine; PCP Internal Medicine
DX: R19.7 Diarrhea, unspecified (principal); E11.9 Type 2 diabetes mellitus without complications; J44.9 Chronic obstructive pulmonary disease, unspecified; K21.9 Gastro-esophageal reflux disease without esophagitis; R10.9 Unspecified abdominal pain
CPT/HCPCS: 36415; 80048; 83605; 85025; 96361; 96372; 96374; 99285; J7030; A4216; J2405

== ENCOUNTER 2019-08-04 13:37 | Observation (INO) | payer MEDICAID, SELFPAY ==
[2019-08-04] VITALS (9 sets, daily range): BP systolic 112–131; BP diastolic 66–96; PULSE 67–82; RESP 15–20; TEMP 36.7–37.1; O2SAT 92–97; BMI 51.0; BMI 51.8
--- NOTE | 2019-08-04 14:01 | EKG12_ITS ---
Test Reason : CP Blood Pressure : / mmHG Vent. Rate : 080 BPM Atrial Rate : 080 BPM P-R Int : 176 ms QRS Dur : 098 ms QT Int : 392 ms P-R-T Axes : 041 -12 -42 degrees QTc Int : 452 ms Sinus rhythm with Premature atrial complexes with Aberrant conduction ST & T wave abnormality, consider anterolateral ischemia Abnormal ECG Confirmed by GINGER RIZO, VENU ([id number]), department editor EM QUINTERO ([id number]) on 08/05/2019 3:00:26 PM Referred By: MARY Confirmed By:VENU MILES MD
--- NOTE | 2019-08-04 14:04 | ED.DCSUM_ITS ---
History of Present Illness <LesterOni - Last Filed: 08/04/19 16:33> Informant: Patient Onset: Yesterday Activity at onset: Rest Timing: Continuous Quality: Tightness Location: Substernal Current Severity: Moderate Maximum Severity: Severe Worsened By: Nothing Relieved By: Nothing Associated Symptoms: Nausea, Lightheadedness Narrative: 53-year-old female with a history of hypertension, insulin-dependent diabetes presents to the emergency department with chest pain. Pain is been constant since she woke up yesterday morning. Pain does not radiate. Nothing really makes it better or worse. She is not short of breath, lightheaded or dizzy. No nausea or vomiting. No leg pain or swelling. No recent travel or surgery. No history of DVT or PE. Heart catheterization 6 years ago that was per her statement unremarkable without intervention in [place], [place]. Prior Similar Symptoms: Yes Recent Illness/Hospitalization: No CVD Risk Factors: Hypertension, Diabetes, Hypercholesterolemia <Octavio Mead - Last Filed: 08/04/19 16:44> Chief Complaint: Chest Pain Past Medical History - Family History Maternal Family History: Family History (Last Reviewed 10/16/18 @ 14:32 by Dana Sweet) Other Hypertension Kidney disease Paternal Family History: Family History (Last Reviewed 10/16/18 @ 14:32 by Dana Sweet) Other Hypertension Kidney disease <LesterOni - Last Filed: 08/04/19 16:33> Prior records reviewed: Yes Past Medical History: - - HTN, DM2 Surgical History: herniorrhaphy, hysterectomy, - - tubes in ears, knee scopes, dr malik for left anterior leg wound, hernia repair, carpal tunnel surgery bilateral Smoking Status: Never smoker - Family History Maternal Family History: Family History (Last Reviewed 10/16/18 @ 14:32 by Dana Sweet) Other Hypertension Kidney disease Family History: Reports: Heart Disease, Hypertension, Stroke Paternal Family History: Family History (Last Reviewed 10/16/18 @ 14:32 by Dana Sweet) Other Hypertension Kidney disease Family History: Reports: Hypertension, Stroke, - <Octavio Mead - Last Filed: 08/04/19 16:44> - Allergies and Home Meds Allergies/Adverse Reactions: Allergies vancomycin Allergy (Severe, Verified 08/04/19 13:45) BURNING RED RASH ON LEGGS cefazolin sodium [From Ancef] Allergy (Verified 08/04/19 13:45) Hives Penicillins Allergy (Verified 08/04/19 13:45) Hives sumatriptan [From Imitrex] Allergy (Verified 08/04/19 13:45) Shortness of breath Primary Care Physician: Cristal Wolf MD [Primary Care Provider] - Review of Systems All systems negative except as indicated Cardiovascular: Reports: Chest pain <Octavio Mead - Last Filed: 08/04/19 16:44> Physical Exam Vital Signs/Narrative: Vital Signs Temp Pulse Resp BP Pulse Ox 08/04/19 16:20 79 18 124/96 H 96 08/04/19 15:08 69 15 119/66 92 08/04/19 14:41 77 20 H 118/76 95 08/04/19 14:10 97 08/04/19 13:38 98.1 F 82 18 112/80 96 <Oni Lester - Last Filed: 08/04/19 16:33> Vital Signs/Narrative: Vital Signs Temp Pulse Resp BP Pulse Ox 08/04/19 13:38 98.1 F 82 18 112/80 96 Inital Vital Signs reviewed: Yes General: Well nourished, Well developed, Obese Head: Normocephalic, Atraumatic Eyes: Perrl, EOMI ENT: Moist mucous membranes Neck: Supple, Nontender, No JVD Cardiovascular: Regular rate, Regular rhythm, No murmurs Respiratory: No distress, CTA bilaterally, Chest nontender Abdomen: Soft, Nontender, Nondistended, Normal bowel sounds, No masses Back: Nontender, Normal Inspection Extremities: Nontender, No edema Skin: Normal color, No rash Neurological: Alert, Oriented x3 <Octavio Mead - Last Filed: 08/04/19 16:44> Diagnostic/Tx/Re-eval - Medical Decision Making Patient evaluated with our physician credit control assistant. Middle-aged obese diabetic female with left-sided chest pain. No hemoptysis. No leg pain or swelling. Known coronary disease from heart cath 6 years ago as her last cardiac work-up. White female no acute distress vital signs stable afebrile. Pulse ox 98% no hypoxia. HEENT exam unremarkable. Lungs clear to auscultation bilaterally. Heart regular rhythm no murmur. Chest wall no ecchymosis or bruising. Mild left-sided tenderness. Not specifically the same pain. Abdomen is obese but soft. Nontender nondistended normal bowel sounds no peritoneal signs. Calves are nontender without edema or cords. Neurologically awake and alert. EKG shows chronic ST depression in anterior lateral leads with sitting seen on a prior EKG. No acute signs of ST elevation. CBC unremarkable. Chemistries unremarkable. Troponin normal. Repeat exam patient is doing well. In light of her cardiac risk factors and her chest pain of uncertain etiology she will be admitted for further evaluation and work-up. MRI spoken to the hospitalist and she will be sent to the PCU under a observation status. Pression: 1. Chest pain uncertain etiology 2. History of diabetes <Oni Lester - Last Filed: 08/04/19 16:33> Chest X-Ray - ED: 2 View, Read by ED Physician, Unchanged, No Acute Disease - Rhythm Strip Rhythm Strip: Sinus Rhythm Rate: 80 Ectopy: None - EKG Initial EKG Interpretation: Sinus Rhythm, Inverted T-Waves Prior: Unchanged <Octavio Mead - Last Filed: 08/04/19 16:44> ED Disposition <Oni Lester - Last Filed: 08/04/19 16:33> <Octavio Mead - Last Filed: 08/04/19 16:44> - Plan for ED Patient: Disposition: Acute Care Hospital [facility] Diagnosis: Chest pain Referrals: Cristal Wolf MD [Primary Care Provider] -
--- NOTE | 2019-08-04 14:07 | RAD_ITS ---
STUDY: X-RAY CHEST REASON FOR EXAM: Female, 53 years old. Chest pain TECHNIQUE: Frontal view of the chest COMPARISON: 07/14/2019 FINDINGS: There is stable elevation of the right hemidiaphragm with overlying atelectasis. The lungs are otherwise clear. There are no pleural effusions. There is no pneumothorax. The heart is normal in size. The visualized osseous structures are within normal limits. RAD/Chest 1 View (Portable) IMPRESSION: No acute thoracic pathology. Electronically Signed: Chace Queen, at 14:29 EDT Tel , Service support ,
[2019-08-04 14:11] LABS: Absolute Lymphocyte Count 0.66 X10^3/uL (0.83-4.51); Absolute Neutrophil Count 2.3 X10^3/uL (2.0-7.7); Hemoglobin 12.1 g/dL (12.0-15.0); Lymphocyte # 0.66 X10^3/ul (4.0); Lymphocyte % 19.8 % (19-41); Mean Corpuscular Hgb 25.6 pg (27.0-32.0); Mean Corpuscular Volume 82.5 fL (81-99); Mean Platelet Vol. 10.1 fl (6.2-12.0); Monocyte# 0.38 X10^3/uL; Monocyte% 11.4 % (0-10); NRBC Flagged by Analyzer 0 % (0-5); Neutrophil # 2.27 X10^3/uL (2.7-7.7); Neutrophil % 68.2 % (47-70); Platelet Count 144 K/mm3 (150-450); RBC Distribution Width CV 14.4 % (11.6-14.6); Red Blood Count 4.73 M/mm3 (4.2-5.4); White Blood Count 3.3 K/mm3 (4.4-11.0)
[2019-08-04 14:27] LABS: Anion Gap 4 (5-15); BUN 13 mg/dL (7-18); BUN/Creat Ratio 15.6 RATIO (10-20); Calcium,Total 8.3 mg/dL (8.5-10.1); Chloride 104 mmol/L (98-107); Creatinine, Serum 0.83 mg/dL (0.55-1.02); EST Glomerular Filtration Rate 75 mL/min (>60); Est Glom Filt Rate - Afr Amer 91 mL/min (>60); Estimated Creatinine Clearance 68.91 ml/min; Glucose 233 mg/dL (74-106); Potassium 4.5 mmol/L (3.5-5.1); Sodium Level 138 mmol/L (136-145)
[2019-08-04] MEDS: Ketorolac 15 MG/ML Vial IV (14:55)
[2019-08-04] MEDS: Ondansetron 4 MG/2 ML Vial IV (15:08)
--- NOTE | 2019-08-04 16:22 | HP.PCM_ITS ---
Problem List (1) HTN (hypertension) Status: Chronic (2) Diabetes mellitus type 2, uncontrolled, with complications Status: Chronic (3) Calculi, ureter Status: Resolved Comment: Right ureter. (4) Pain syndrome, chronic Status: Chronic (5) Bipolar disorder Status: Chronic (6) Migraines Status: Chronic (7) Obstructive sleep apnea Status: Chronic (8) Stasis dermatitis of both legs Status: Chronic (9) Venous insufficiency of both lower extremities Status: Chronic (10) Super obese Status: Chronic (11) ADHD (attention deficit hyperactivity disorder) Status: Chronic (12) Benign hypertension Status: Chronic (13) Type II diabetes mellitus Status: Chronic Qualifiers: Diabetes mellitus fpc insulin use: without fpc use Diabetes mellitus complication status: with unspecified complications (14) GERD (gastroesophageal reflux disease) Status: Chronic (15) COPD Status: Chronic (16) Open wound of left lower extremity Status: Chronic Qualifiers: Encounter type: subsequent encounter Qualified Code(s): S81.802D - Unspecified open wound, left lower leg, subsequent encounter History of Present Illness Date of Admission: 08/04/19 Chief Complaint: Chest pain. The patient is a 53 year old F who presents emergency room due to chest pain. Patient reports her chest pain initially began yesterday, sharp in nature on the left side of her chest. She reports that continued intermittently throughout the day, not worse with exertion. She reports she was playing a card game last evening and developed more chest pressure which she reports went down her left arm. She denies shortness of breath, dizziness, diaphoresis or other associated symptoms. She does report to last Monday she was at a coffee shop and became dizzy and felt like she was going to pass out. She did not seek medical attention at that time. She reports she had a cardiac cath 6 years ago in [place] which she reports was normal. She has a past medical history of hypertension, asthma, COPD, morbid obesity, chronic venous stasis bilateral lower extremities, type 2 diabetes mellitus, GERD, fibromyalgia, anxiety, depression, bipolar, untreated ABRAM, migraine disorder. Past Medical History Past Medical History (Chronic Problems): Chronic Problems (Last Reviewed 10/16/18 @ 14:32 by Dana Sweet) HTN (hypertension) (Chronic) Diabetes mellitus type 2, uncontrolled, with complications (Chronic) Pain syndrome, chronic (Chronic) Bipolar disorder (Chronic) Migraines (Chronic) Obstructive sleep apnea (Chronic) Stasis dermatitis of both legs (Chronic) Venous insufficiency of both lower extremities (Chronic) Super obese (Chronic) ADHD (attention deficit hyperactivity disorder) (Chronic) Benign hypertension (Chronic) Type II diabetes mellitus (Chronic) GERD (gastroesophageal reflux disease) (Chronic) COPD (Chronic) Open wound of left lower extremity (Chronic) Medical History: Medical History (Last Reviewed 10/16/18 @ 14:32 by Dana Sweet) Arthritis M19.90 Asthma J45.909 Back pain M54.9 COPD (chronic obstructive pulmonary disease) J44.9 Diabetes E11.9 Fatigue R53.83 Hemorrhoids K64.9 Hx of hysterectomy Z90.710 Knee pain M25.569 Migraines G43.909 HTN (hypertension) I10 Allergies vancomycin Allergy (Severe, Verified 08/04/19 13:45) BURNING RED RASH ON LEGGS cefazolin sodium [From Ancef] Allergy (Verified 08/04/19 13:45) Hives Penicillins Allergy (Verified 08/04/19 13:45) Hives sumatriptan [From Imitrex] Allergy (Verified 08/04/19 13:45) Shortness of breath Home Medications: Ambulatory Orders Medication Instructions Recorded Buspirone HCl 20 mg PO TID PRN PRN 03/05/17 Nadolol [Corgard (Beta Torin)] 160 mg PO BID 03/05/17 Oxybutynin Chloride [Ditropan Xl] 15 mg PO QHS 03/05/17 Quetiapine Fumarate [Quetiapine 300 mg PO QHS 03/05/17 Fumarate ER] buPROPion XL [Wellbutrin Xl] 450 mg PO DAILY 03/05/17 Lisinopril 20 mg PO QHS 03/20/17 omeprazole 10 mg capsule,delayed 10 mg PO DAILY 02/18/18 release valacyclovir 1 gram tablet 1,000 mg PO QDAY 02/18/18 Diazepam [Valium] 10 mg PO BID PRN PRN 03/11/18 Orphenadrine [Norflex] 100 mg PO BID PRN 03/11/18 traMADol [Ultram] 100 mg PO Q6H PRN PRN 03/11/18 Albuterol Inhaler [Ventolin Hfa] 2 puff INHALATION Q4H PRN PRN 05/29/18 glimepiride 2 mg tablet 4 mg PO BID tab 09/20/18 metformin 500 mg tablet 500 mg PO BID #60 tab 09/25/18 Insulin Glargine,Hum.rec.anlog 30 unit SUBCUT .q am 10/07/18 [Basaglar KwikPen U-100 Insulin] Rizatriptan Benzoate [Rizatriptan] 5 mg PO DAILY PRN 10/07/18 Mometasone Furoate [Nasonex] 1 spray NASAL DAILY 10/14/18 Pregabalin [Lyrica] 75 mg PO TID 10/14/18 Insulin Lispro [Humalog KwikPen] 0 - 100 unit SQ TIDCM 12/05/18 Liraglutide [Victoza 2-Konrad] 0.6 mg SQ DAILY 12/05/18 Dicyclomine HCl [Bentyl] 20 mg PO TIDAC #20 cap 07/28/19 Clindamycin [Cleocin] 300 mg PO 4X/DAY 08/04/19 Doxycycline Monohydrate [Monodox] 100 mg PO BID 08/04/19 Escitalopram Oxalate [Lexapro] 10 mg PO DAILY 08/04/19 Fluconazole [Diflucan] 150 mg PO X1 08/04/19 Fluticasone 0.05% [Flonase Nasal 2 spray NASAL DAILY 08/04/19 Ragan] Oxycodone HCl/Acetaminophen 1 ea PO Q6H PRN 08/04/19 [Endocet 5-325 Tablet] Primidone [Mysoline] 50 mg PO 4X/DAY 08/04/19 Surgical History: Surgical History (Last Reviewed 10/16/18 @ 14:32 by Dana Sweet) H/O hernia repair Z98.890, Z87.19 Hx of section Z98.891 Kidney stone N20.0 knee scope Surgical History: herniorrhaphy, hysterectomy, - - tubes in ears, knee scopes, dr queen for left anterior leg wound, hernia repair, carpal tunnel surgery bilateral Psychiatric History: Anxiety, Bipolar, Depression [employer] History: No pertinent [employer] history Smoking Status: Never smoker Alcohol: None Drugs: None - *Family History Maternal Family History: Family History (Last Reviewed 10/16/18 @ 14:32 by Dana Sweet) Other Hypertension Kidney disease History Items: Heart Disease, Hypertension, Stroke Paternal Family History: Family History (Last Reviewed 10/16/18 @ 14:32 by Dana Sweet) Other Hypertension Kidney disease History Items: Hypertension, Stroke Review of Systems Constitutional: Denies: Chills, Fever, Weight Change HEENT: Denies: Head Aches, Sinus Congestion, Sinus Drainage Cardiovascular: Reports: Chest Pain, Light Headedness. Denies: Edema, Palpitations, Syncope Respiratory: Denies: Cough, Shortness of breath at rest, Sputum production Gastrointestinal: Denies: Abdominal Pain, Nausea, Vomiting Genitourinary: Denies: Dysuria Musculoskeletal: Denies: Joint Pain, Joint Tenderness Skin: Reports: - - Chronic left lower extremity wounds Neurological: Denies: Numbness, Tingling, Focal weakness Psychiatric: Reports: Anxiety, Depression Hematologic/ Lymphatic: Denies: Easy Bruising, Easy Bleeding VTE Information - Inpt Only VTE Present on Admission: No VTE Mechan Device Prophylaxis: None VTE Pharm Prophylaxis ordered?: Yes - Physical Exam General: Alert, Oriented x3, Cooperative HEENT: Atraumatic, PERRLA, EOMI, Normocephalic Neck: Supple, No JVD, Negative Carotid Bruits Lungs: Clear to auscultation, Diminished Cardiovascular: Regular rate, Regular Rhythm, Normal S1, Normal S2, No murmurs Abdomen: Bowel Sounds Present, Soft, Non Tender, Non-Distended, Obese Extremities: No clubbing, No cyanosis, Edema - Bilateral lower extremities, chronic. Skin: - - Chronic venous stasis skin changes bilateral lower extremities, chronic left lower extremity wounds from prior traumatic injury, no evidence of drainage or acute infection. Musculoskeletal: No Tenderness to Palpation of Joints or Extremities Neurological: Cranial nerves II-XII grossly intact, Neuro grossly intact Psych/Mental Status: Normal Affect, Appropriate Vital Signs Temp Pulse Resp BP Pulse Ox 98.1 F 79 18 124/96 H 96 08/04/19 13:38 08/04/19 16:20 08/04/19 16:20 08/04/19 16:20 08/04/19 16:20 Oxygen Delivery Method Room Air Weight: 307 lb Body Mass Index (BMI) 51.0 Finger Stick Blood Glucose 178 Laboratory Tests Past 24 Hrs 08/04/19 08/04/19 13:30 13:30 WBC 3.3 L RBC 4.73 Hgb 12.1 Hct 39.0 MCV 82.5 MCH 25.6 L MCHC 31.0 L RDW Std Deviation 43.0 RDW Coeff of Jocy 14.4 Plt Count 144 L MPV 10.1 Immature Gran % (Auto) 0.600 Neut % (Auto) 68.2 Lymph % (Auto) 19.8 [place] % (Auto) 11.4 H Eos % (Auto) 0.0 Baso % (Auto) 0.0 Absolute Neuts (auto) 2.3 Absolute Lymphs (auto) 0.66 L Nucleated RBC % 0 Sodium 138 Potassium 4.5 Chloride 104 Carbon Dioxide 30.0 Anion Gap 4 L BUN 13 Creatinine 0.83 Estim Creat Clear Calc 68.91 Est GFR (MDRD) Af Amer 91 Est GFR (MDRD) Non-Af 75 BUN/Creatinine Ratio 15.6 Glucose 233 H Calcium 8.3 L Troponin I < 0.015 Assessment/Plan All Active Problems (Last Reviewed 10/16/18 @ 14:32 by Dana Sweet) Chest pain (Acute) Calculi, ureter (Resolved) 1. Chest pain- EKG without ST-T changes. Initial troponin negative. CXR without acute process. Trend enzymes. Obtain stress test in a.m. 2. Hypertension- continue lisinopril, nadolol regimen. 3. Asthma/COPD- no acute exacerbation, PRN albuterol aerosol. 4. Morbid obesity- encouraged diet and lifestyle modifications. 5. Type 2 diabetes mellitus with metabolic syndrome- hold metformin, glimepiride regimen. Accu-Cheks ACHS with SSI. Continue home insulin regimen. 6. GERD- continue omeprazole regimen. 7. Fibromyalgia- on lyrica. 8. Anxiety/Depression/bipolar- continue bupropion, buspirone, PRN diazepam, escitalopram, quetiapine. 9. ABRAM- prior sleep study 2014 showed moderate to severe ABRAM. Recommended follo w-up with pulmonary medicine, patient has not yet done so. Does not wear CPAP at home. 10. Chronic venous stasis bilateral lower extremities with chronic left lower extremity wounds-prior traumatic injury with surgery by Dr. Queen in the past. Recently placed on doxycycline by PCP for area that intermittently becomes infected. Recommend follow-up with wound center and Dr. Queen at discharge for further evaluation. 11. Migraine disorder-continue home medication regimen. DVT prophylaxis- Lovenox sc This patient was seen by REMINGTON Dewitt under the supervision of Dr. Velazquez.
--- NOTE | 2019-08-04 16:31 | NURSING ---
DR TYRONE HERNANDEZ
--- NOTE | 2019-08-04 16:34 | NURSING ---
PCU OBS CP OF UNCERTAIN CAUSE TYRONE
--- NOTE | 2019-08-04 17:14 | NURSING ---
MED SURG OBS CELLULITIS SEMENTI
--- NOTE | 2019-08-04 17:50 | EKG12_ITS ---
Test Reason : Blood Pressure : / mmHG Vent. Rate : 070 BPM Atrial Rate : 070 BPM P-R Int : 178 ms QRS Dur : 098 ms QT Int : 402 ms P-R-T Axes : 030 001 -32 degrees QTc Int : 434 ms Normal sinus rhythm ST & T wave abnormality, consider anterolateral ischemia Abnormal ECG When compared with ECG of 04-AUG-2019 13:39, MANUAL COMPARISON REQUIRED, DATA IS UNCONFIRMED Confirmed by GINGER RIZO, VENU ([id number]), greeting card editor EM QUINTERO ([id number]) on 08/06/2019 12:25:43 PM Referred By: ARIELA Confirmed By:VENU MILES MD
[2019-08-04] MEDS: oxyCODONE 5 MG Tablet 10 MG PO (18:51)
[2019-08-04] MEDS: Primidone 50 MG Tablet PO ×2 (18:51→22:30)
[2019-08-04] MEDS: Acyclovir 200 MG Capsule 400 MG PO (22:29)
[2019-08-04] MEDS: Lisinopril 20 MG Tablet PO (22:30)
[2019-08-04] MEDS: Tolterodine Tartrate 4 MG CAP.SA PO (22:31)
[2019-08-04] MEDS: Doxycycline 100 MG CAPSULE PO (22:32)
[2019-08-04 22:41] LABS: Bedside Glucose 203 mg/dL (70-110)
[2019-08-04] MEDS: Nadolol 40 MG Tablet 160 MG PO (22:52)
[2019-08-04] MEDS: Pregabalin 75 MG Capsule PO (22:52)
[2019-08-04] MEDS: Insulin Lispro 100 UNIT/ML INSULN.PEN SC (22:54)
[2019-08-04] MEDS: Heparin Injection (Vial) 5,000 UNIT/ML VIAL 5000 UNIT SC (22:54)
[2019-08-05 02:59] VITALS: PULSE 79
[2019-08-05 04:17] VITALS: BP 120/73; PULSE 82; RESP 18; TEMP 36.7; O2SAT 94
[2019-08-05 05:32] LABS: Absolute Lymphocyte Count 0.78 X10^3/uL (0.83-4.51); Absolute Neutrophil Count 1.7 X10^3/uL (2.0-7.7); Eosinophil# 0.01 X10^3/uL; Eosinophils% 0.3 % (0-5); Hematocrit 34.6 % (37-47); Hemoglobin 10.8 g/dL (12.0-15.0); Lymphocyte # 0.78 X10^3/ul (4.0); Lymphocyte % 26.8 % (19-41); Mean Corp Hgb Conc 31.2 g/dL (32-36); Mean Corpuscular Volume 83.2 fL (81-99); Mean Platelet Vol. 8.7 fl (6.2-12.0); Monocyte# 0.37 X10^3/uL; Monocyte% 12.7 % (0-10); NRBC Flagged by Analyzer 0 % (0-5); Neutrophil # 1.74 X10^3/uL (2.7-7.7); Neutrophil % 59.9 % (47-70); Platelet Count 118 K/mm3 (150-450); RBC Distribution Width CV 14.5 % (11.6-14.6); RBC Distribution Width SD 43.6 fl (35.1-43.9); Red Blood Count 4.16 M/mm3 (4.2-5.4); White Blood Count 2.9 K/mm3 (4.4-11.0)
[2019-08-05 05:53] LABS: International Normalized Ratio 1.1; Partial Thromboplast Time 32.9 Seconds (24.1-36.2); Prothrombin Time (Protime)PT. 13.6 SECONDS (11.7-14.9)
[2019-08-05 05:58] LABS: Anion Gap 8 (5-15); BUN 15 mg/dL (7-18); Calcium,Total 8.2 mg/dL (8.5-10.1); Chloride 103 mmol/L (98-107); Creatinine, Serum 0.75 mg/dL (0.55-1.02); EST Glomerular Filtration Rate 85 mL/min (>60); Est Glom Filt Rate - Afr Amer 103 mL/min (>60); Estimated Creatinine Clearance 76.26 ml/min; Glucose 178 mg/dL (74-106); Potassium 4.2 mmol/L (3.5-5.1); Sodium Level 141 mmol/L (136-145)
[2019-08-05 06:51] LABS: Bedside Glucose 177 mg/dL (70-110)
[2019-08-05 07:05] VITALS: PULSE 82
[2019-08-05 07:12] VITALS: O2SAT 92
--- NOTE | 2019-08-05 10:19 | DCINST_ITS ---
- Discharge Diagnoses Current Active Problems: Current Active and Chronic Problems (Last Reviewed 10/16/18 @ 14:32 by Dana Sweet) Chest pain (Acute) You will use the following diet at home:: Calorie/Carbohydrate Controlled (specify 1200, 1400, etc) Discharge Activity: Return to Normal Activity Call your doctor if you observe: Shortness of breath, Dizziness, Fainting spells, Chest pain Allergies/Adverse Reactions: Allergies vancomycin Allergy (Severe, Verified 08/04/19 13:45) BURNING RED RASH ON LEGGS cefazolin sodium [From Ancef] Allergy (Verified 08/04/19 13:45) Hives Penicillins Allergy (Verified 08/04/19 13:45) Hives sumatriptan [From Imitrex] Allergy (Verified 08/04/19 13:45) Shortness of breath Medications to take at Discharge Buspirone HCl 20 mg PO TID PRN PRN 03/05/17 Nadolol [Corgard (Beta Torin)] 160 mg PO QHS 03/05/17 Oxybutynin Chloride [Ditropan Xl] 15 mg PO QHS 03/05/17 Quetiapine Fumarate [Quetiapine Fumarate ER] 300 mg PO QHS 03/05/17 buPROPion XL [Wellbutrin Xl] 450 mg PO DAILY 03/05/17 Lisinopril 20 mg PO QHS 03/20/17 omeprazole 10 mg capsule,delayed release 10 mg PO DAILY 02/18/18 valacyclovir 1 gram tablet 1,000 mg PO QDAY 02/18/18 Diazepam [Valium] 10 mg PO BID PRN PRN 03/11/18 Orphenadrine [Norflex] 100 mg PO BID PRN 03/11/18 traMADol [Ultram] 100 mg PO Q6H PRN PRN 03/11/18 Albuterol Inhaler [Ventolin Hfa] 2 puff INHALATION Q4H PRN PRN 05/29/18 glimepiride 2 mg tablet 4 mg PO BID tab 09/20/18 metformin 500 mg tablet 500 mg PO BID #60 tab 09/25/18 Insulin Glargine,Hum.rec.anlog [Basaglar Yang[place]pen U-100] 30 unit SUBCUT .q am 10/07/18 Rizatriptan Benzoate [Rizatriptan] 5 mg PO DAILY PRN 10/07/18 Mometasone Furoate [Nasonex] 1 spray NASAL DAILY 10/14/18 Pregabalin [Lyrica] 75 mg PO TID 10/14/18 Insulin Lispro [Humalog KwikPen] 0 - 100 unit SQ TIDCM 12/05/18 Liraglutide [Victoza 2-Konrad] 0.6 mg SQ DAILY 12/05/18 Dicyclomine HCl [Bentyl] 20 mg PO TIDAC #20 cap 07/28/19 Doxycycline Monohydrate [Monodox] 100 mg PO BID 08/04/19 Escitalopram Oxalate [Lexapro] 10 mg PO DAILY 08/04/19 Fluconazole [Diflucan] 150 mg PO X1 08/04/19 Fluticasone 0.05% [Flonase Nasal [place]] 2 spray NASAL DAILY 08/04/19 Oxycodone HCl/Acetaminophen [Endocet 5-325 Tablet] 1 ea PO Q6H PRN 08/04/19 Primidone [Mysoline] 50 mg PO 4X/DAY 08/04/19 Primary Care Physician: Cristal Wolf MD [Primary Care Provider] - Please follow up with your Primary Care Physician in: 1 Week Test Results: Test results from this visit will be discussed in further detail at your follow- up appointment, if applicable. Please Follow Up With: Hamzah,Wound - Dr. Queen When: 1 Week Proposed Discharge Date: 08/05/19
[2019-08-05 10:30] VITALS: BP 143/91; PULSE 87; RESP 18; TEMP 37; O2SAT 95
[2019-08-05] MEDS: oxyCODONE 5 MG Tablet 10 MG PO (11:40)
--- NOTE | 2019-08-05 11:46 | STRESSREP ---
Stress Test Report Pharmacologic myocardial perfusion stress test. 53-year-old lady with a history of chest pain. Stress protocol: Resting EKG demonstrates normal sinus rhythm with a rate of 77 bpm resting blood pressures 132/70 mmHg. 0.4 mg of regadenoson was infused per usual protocol followed by rapid intravenous saline flush injection continuous medical services assistant was performed. The maximum heart rate attained was 103 bpm which was 62% of maximum predicted heart rate the maximum workload was 1 metabolic equivalent. At rest there were no ST or T wave changes noted suggest abnormal flow reserve at peak infusion nonspecific ST-T wave changes were noted with no meet the criteria for ischemia. Myocardial perfusion protocol. 15.0 mCi of technetium 99m sestamibi was injected at rest. 0.4 mg of adenosine was infused per usual protocol peak infusion 45.0 mCi of technetium 99m sestamibi was injected stress images were obtained stress and rest images were reconstructed and compared in the short axis vertical long horizontal long axis. Gated images was obtained Perfusion SPECT analysis: Review of the stress images demonstrate normal uptake of tracer noted in all rest myocardium the rest images similar demonstrate normal uptake of tracer noted in all rest myocardium. No areas of reversibility are noted suggest ischemia no previous infarct is noted. Gated SPECT analysis: The gated ejection fraction is noted to be 77%. Conclusion: Normal pharmacologic myocardial perfusion stress test. Preserved ejection fraction.
--- NOTE | 2019-08-05 11:59 | PCM.DC.SUM ---
<Veronica Vogt - Last Filed: 08/05/19 12:03> Discharge Date and Diagnosis Date of Admission: 08/04/19 Date of Discharge: 08/05/19 - Primary Discharge Diagnosis Active and Suspected Problems (Last Reviewed 10/16/18 @ 14:32 by Dana Sweet) 1. Musculoskeletal chest pain,, ACS ruled out. 2. Hypertension 3. Asthma/COPD 4. Morbid obesity 5. Type 2 diabetes mellitus with metabolic syndrome 6. GERD 7. Fibromyalgia 8. Anxiety/Depression/bipolar 9. ABRAM 10. Chronic venous stasis bilateral lower extremities with chronic left lower extremity wounds 11. Migraine disorder - Secondary Discharge Diagnosis Chronic Problems (Last Reviewed 10/16/18 @ 14:32 by Dana Sweet) HTN (hypertension) (Chronic) Diabetes mellitus type 2, uncontrolled, with complications (Chronic) Pain syndrome, chronic (Chronic) Bipolar disorder (Chronic) Migraines (Chronic) Obstructive sleep apnea (Chronic) Stasis dermatitis of both legs (Chronic) Venous insufficiency of both lower extremities (Chronic) Super obese (Chronic) ADHD (attention deficit hyperactivity disorder) (Chronic) Benign hypertension (Chronic) Type II diabetes mellitus (Chronic) GERD (gastroesophageal reflux disease) (Chronic) COPD (Chronic) Open wound of left lower extremity (Chronic) Hospital Course and Treatment Imaging Results: Diagnostic Data Chest X-Ray 08/04/19 14:07 IMPRESSION: No acute thoracic pathology. Electronically Signed: Chace Pedrozajacob, at 14:29 EDT Tel , Service support , Operations: None Procedures: Stress test Summary of Care Provided: The patient is a 53 year old F admitted 08/04/2019 due to chest pain. 1. Musculoskeletal chest pain, ACS ruled out- EKG without ST-T changes. Troponin negative. CXR without acute process. Patient underwent nuclear stress test which was negative for ischemia, gated ejection fraction noted to be 77%. No further chest pain during admission. Suspect musculoskeletal in nature. Follow-up with PCP in 1 week. 2. Hypertension- continue lisinopril, nadolol regimen. 3. Asthma/COPD- no acute exacerbation. 4. Morbid obesity- encouraged diet and lifestyle modifications. 5. Type 2 diabetes mellitus with metabolic syndrome-continue home oral and insulin regimen. 6. GERD- continue omeprazole regimen. 7. Fibromyalgia- on lyrica. 8. Anxiety/Depression/bipolar- continue bupropion, buspirone, PRN diazepam, escitalopram, quetiapine. 9. ABRAM- prior sleep study 2014 showed moderate to severe ABRAM. Recommended follow-up with pulmonary medicine, patient has not yet done so. Does not wear CPAP at home. 10. Chronic venous stasis bilateral lower extremities with chronic left lower extremity wounds-prior traumatic injury with surgery by Dr. Queen in the past. Recently placed on doxycycline by PCP for area that intermittently becomes infected. Recommend follow-up with wound center and Dr. Queen at discharge for further evaluation. 11. Migraine disorder-continue home medication regimen. General: Alert, Oriented x3, Cooperative HEENT: Atraumatic, PERRLA, EOMI, Normocephalic Neck: Supple, No JVD, Negative Carotid Bruits Lungs: Clear to auscultation, Diminished Cardiovascular: Regular rate, Regular Rhythm, Normal S1, Normal S2, No murmurs Abdomen: Bowel Sounds Present, Soft, Non Tender, Non-Distended, Obese Extremities: No clubbing, No cyanosis, Edema - Bilateral lower extremities, chronic. Skin: - - Chronic venous stasis skin changes bilateral lower extremities, chronic left lower extremity wounds from prior traumatic injury, no evidence of drainage or acute infection. Musculoskeletal: No Tenderness to Palpation of Joints or Extremities Neurological: Cranial nerves II-XII grossly intact, Neuro grossly intact Psych/Mental Status: Normal Affect, Appropriate Patient seen and examined prior to discharge. Physical assessment as noted above. Patient is stable for discharge with follow up recommendations as noted above. This patient was seen by REMINGTON Dewitt under the supervision of Dr. Echevarria. - Physical Exam Vital Signs Temp Pulse Resp BP Pulse Ox 98.0 F 82 18 120/73 92 08/05/19 04:17 08/05/19 07:05 08/05/19 04:17 08/05/19 04:17 08/05/19 07:12 Oxygen Delivery Method Room Air Weight: 311 lb 8 oz Body Mass Index (BMI) 51.8 Finger Stick Blood Glucose 178 Intake and Output for Last 24 Hours 08/03/19 08/04/19 08/05/19 23:59 23:59 23:59 Intake Total 240 / 240 0 / 0 Balance 240 / 240 0 / 0 Laboratory Tests Past 24 Hrs 08/04/19 08/04/19 08/04/19 13:30 13:30 18:15 WBC 3.3 L RBC 4.73 Hgb 12.1 Hct 39.0 MCV 82.5 MCH 25.6 L MCHC 31.0 L RDW Std Deviation 43.0 RDW Coeff of Jocy 14.4 Plt Count 144 L MPV 10.1 Immature Gran % (Auto) 0.600 Neut % (Auto) 68.2 Lymph % (Auto) 19.8 [place] % (Auto) 11.4 H Eos % (Auto) 0.0 Baso % (Auto) 0.0 Absolute Neuts (auto) 2.3 Absolute Lymphs (auto) 0.66 L Nucleated RBC % 0 PT INR APTT Sodium 138 Potassium 4.5 Chloride 104 Carbon Dioxide 30.0 Anion Gap 4 L BUN 13 Creatinine 0.83 Estim Creat Clear Calc 68.91 Est GFR (MDRD) Af Amer 91 Est GFR (MDRD) Non-Af 75 BUN/Creatinine Ratio 15.6 Glucose 233 H Calcium 8.3 L Troponin I < 0.015 < 0.015 08/04/19 08/05/19 08/05/19 20:00 05:15 05:15 WBC 2.9 L RBC 4.16 L Hgb 10.8 L Hct 34.6 L MCV 83.2 MCH 26.0 L MCHC 31.2 L RDW Std Deviation 43.6 RDW Coeff of Jocy 14.5 Plt Count 118 L MPV 8.7 Immature Gran % (Auto) 0.300 Neut % (Auto) 59.9 Lymph % (Auto) 26.8 [place] % (Auto) 12.7 H Eos % (Auto) 0.3 Baso % (Auto) 0.0 Absolute Neuts (auto) 1.7 L Absolute Lymphs (auto) 0.78 L Nucleated RBC % 0 PT 13.6 INR 1.1 APTT 32.9 Sodium Potassium Chloride Carbon Dioxide Anion Gap BUN Creatinine Estim Creat Clear Calc Est GFR (MDRD) Af Amer Est GFR (MDRD) Non-Af BUN/Creatinine Ratio Glucose Calcium Troponin I < 0.015 08/05/19 05:15 WBC RBC Hgb Hct MCV MCH MCHC RDW Std Deviation RDW Coeff of Jocy Plt Count MPV Immature Gran % (Auto) Neut % (Auto) Lymph % (Auto) [place] % (Auto) Eos % (Auto) Baso % (Auto) Absolute Neuts (auto) Absolute Lymphs (auto) Nucleated RBC % PT INR APTT Sodium 141 Potassium 4.2 Chloride 103 Carbon Dioxide 30.0 Anion Gap 8 BUN 15 Creatinine 0.75 Estim Creat Clear Calc 76.26 Est GFR (MDRD) Af Amer 103 Est GFR (MDRD) Non-Af 85 BUN/Creatinine Ratio 20.0 Glucose 178 H Calcium 8.2 L Troponin I POC Glucose 08/05/19 08/04/19 06:44 22:37 POC Glucose 177 H 203 H Discharge Diet: Low fat/ Low Cholesterol, Carb Control Diet Discharge Activity: Return to Normal Activity Call your doctor if you observe: Shortness of breath, Dizziness, Fainting spells, Chest pain Home Medications: Medications to take at Discharge Buspirone HCl 20 mg PO TID PRN PRN 03/05/17 Nadolol [Corgard (Beta Torin)] 160 mg PO QHS 03/05/17 Oxybutynin Chloride [Ditropan Xl] 15 mg PO QHS 03/05/17 Quetiapine Fumarate [Quetiapine Fumarate ER] 300 mg PO QHS 03/05/17 buPROPion XL [Wellbutrin Xl] 450 mg PO DAILY 03/05/17 Lisinopril 20 mg PO QHS 03/20/17 omeprazole 10 mg capsule,delayed release 10 mg PO DAILY 02/18/18 valacyclovir 1 gram tablet 1,000 mg PO DAILY 02/18/18 Diazepam [Valium] 10 mg PO BID PRN PRN 03/11/18 Orphenadrine [Norflex] 100 mg PO BID PRN 03/11/18 traMADol [Ultram] 100 mg PO Q6H PRN PRN 03/11/18 Albuterol Inhaler [Ventolin Hfa] 2 puff INHALATION Q4H PRN PRN 05/29/18 glimepiride 2 mg tablet 4 mg PO BID tab 09/20/18 metformin 500 mg tablet 500 mg PO BID #60 tab 09/25/18 Insulin Glargine,Hum.rec.anlog [Basaglar Kwikpen U-100] 30 unit SUBCUT DAILY 10/07/18 Rizatriptan Benzoate [Rizatriptan] 5 mg PO DAILY PRN 10/07/18 Pregabalin [Lyrica] 75 mg PO TID 10/14/18 Insulin Lispro [Humalog KwikPen] 0 - 100 unit SQ TIDCM 12/05/18 Liraglutide [Victoza 2-Konrad] 0.6 mg SQ DAILY 12/05/18 Dicyclomine HCl [Bentyl] 20 mg PO TIDAC #20 cap 07/28/19 Doxycycline Monohydrate [Monodox] 100 mg PO BID 08/04/19 Escitalopram Oxalate [Lexapro] 10 mg PO DAILY 08/04/19 Fluconazole [Diflucan] 150 mg PO X1 08/04/19 Fluticasone 0.05% [Flonase Nasal [place]] 2 spray NASAL DAILY 08/04/19 Oxycodone HCl/Acetaminophen [Endocet 5-325 Tablet] 1 ea PO Q6H PRN 08/04/19 Primidone [Mysoline] 50 mg PO 4X/DAY 08/04/19 Mometasone Furoate 1 applic TOPICAL DAILY 08/05/19 Primary Care Physician: Cristal Wolf MD [Primary Care Provider] - Please follow up with your Primary Care Physician in: 1 Week Please Follow Up With: Clinic,Wound - Dr. Queen When: 1 Week Disposition: Home Minutes spent on discharge:: 35 Patient Condition:: Stable Medical Necessity - Tobacco Use Smoking Status: Never smoker Meaningful Use Info Meaningful Use Diagnoses (Choose all that apply): None applicable <Marek Echevarria - Last Filed: 08/05/19 17:01> Discharge Date and Diagnosis - Secondary Discharge Diagnosis Chronic Problems (Last Reviewed 10/16/18 @ 14:32 by Dana Sweet) HTN (hypertension) (Chronic) Diabetes mellitus type 2, uncontrolled, with complications (Chronic) Pain syndrome, chronic (Chronic) Bipolar disorder (Chronic) Migraines (Chronic) Obstructive sleep apnea (Chronic) Stasis dermatitis of both legs (Chronic) Venous insufficiency of both lower extremities (Chronic) Super obese (Chronic) ADHD (attention deficit hyperactivity disorder) (Chronic) Benign hypertension (Chronic) Type II diabetes mellitus (Chronic) GERD (gastroesophageal reflux disease) (Chronic) COPD (Chronic) Open wound of left lower extremity (Chronic) Hospital Course and Treatment Operations: None Procedures: Stress test Summary of Care Provided: Patient seen and examined independently. Data reviewed. I agree with the above note by the nurse practitioner. The patient is a 53 year old F presents with chest pain. Work-up, including a stress test was unremarkable for cardiac etiology. Exam seem more consistent with musculoskeletal although I did state to the patient that this could be esophageal related as well. Did not recommend additional therapies given the very infrequent nature of this. [] - Physical Exam General: Alert, No apparent distress HEENT: Atraumatic, Normocephalic Oral: Moist Mucosa, No Gingival or Mucosal Lesions/ Ulcerations Neck: No Nodes, Thyroid Normal Size and Texture Lungs: Clear to auscultation, Normal air movement, No rhonchi, No wheeze, No rales Cardiovascular: Regular rate, Regular Rhythm Abdomen: Bowel Sounds Present, Soft, Non Tender, Non-Distended Vital Signs Temp Pulse Resp BP Pulse Ox 37.0 C 87 18 143/91 H 95 08/05/19 10:30 08/05/19 10:30 08/05/19 10:30 08/05/19 10:30 08/05/19 10:30 Oxygen Delivery Method Room Air Weight: 141.294 kg Body Mass Index (BMI) 51.8 Finger Stick Blood Glucose 178 Intake and Output for Last 24 Hours 08/03/19 08/04/19 08/05/19 23:59 23:59 23:59 Intake Total 240 / 240 0 / 0 Balance 240 / 240 0 / 0 Laboratory Tests Past 24 Hrs 08/04/19 08/04/19 08/05/19 18:15 20:00 05:15 WBC 2.9 L RBC 4.16 L Hgb 10.8 L Hct 34.6 L MCV 83.2 MCH 26.0 L MCHC 31.2 L RDW Std Deviation 43.6 RDW Coeff of Jocy 14.5 Plt Count 118 L MPV 8.7 Immature Gran % (Auto) 0.300 Neut % (Auto) 59.9 Lymph % (Auto) 26.8 [place] % (Auto) 12.7 H Eos % (Auto) 0.3 Baso % (Auto) 0.0 Absolute Neuts (auto) 1.7 L Absolute Lymphs (auto) 0.78 L Nucleated RBC % 0 PT INR APTT Sodium Potassium Chloride Carbon Dioxide Anion Gap BUN Creatinine Estim Creat Clear Calc Est GFR (MDRD) Af Amer Est GFR (MDRD) Non-Af BUN/Creatinine Ratio Glucose Calcium Troponin I < 0.015 < 0.015 08/05/19 08/05/19 05:15 05:15 WBC RBC Hgb Hct MCV MCH MCHC RDW Std Deviation RDW Coeff of Jocy Plt Count MPV Immature Gran % (Auto) Neut % (Auto) Lymph % (Auto) [place] % (Auto) Eos % (Auto) Baso % (Auto) Absolute Neuts (auto) Absolute Lymphs (auto) Nucleated RBC % PT 13.6 INR 1.1 APTT 32.9 Sodium 141 Potassium 4.2 Chloride 103 Carbon Dioxide 30.0 Anion Gap 8 BUN 15 Creatinine 0.75 Estim Creat Clear Calc 76.26 Est GFR (MDRD) Af Amer 103 Est GFR (MDRD) Non-Af 85 BUN/Creatinine Ratio 20.0 Glucose 178 H Calcium 8.2 L Troponin I POC Glucose 08/05/19 08/05/19 08/04/19 11:55 06:44 22:37 POC Glucose 223 H 177 H 203 H Discharge Diet: Low fat/ Low Cholesterol, Carb Control Diet Discharge Activity: Return to Normal Activity Call your doctor if you observe: Shortness of breath, Dizziness, Fainting spells, Chest pain Disposition: Home Minutes spent on discharge:: 35 Medical Necessity - Tobacco Use Smoking Status: Never smoker Meaningful Use Info Meaningful Use Diagnoses (Choose all that apply): None applicable Code Visit OBSV E&M: 54870 Observation care discharge
[2019-08-05 12:00] LABS: Bedside Glucose 223 mg/dL (70-110)
[2019-08-05] MEDS: Insulin Lispro 100 UNIT/ML INSULN.PEN SC (12:05)
[2019-08-05] MEDS: Dicyclomine 10 MG Capsule 20 MG PO (12:05)
[2019-08-05] MEDS: buPROPion (XL) 150 MG TABLET.XL 450 MG PO (12:05)
[2019-08-05] MEDS: Pantoprazole Sodium 20 MG Tablet PO (12:06)
[2019-08-05] MEDS: Glimepiride 4 MG Tablet PO (12:06)
[2019-08-05] MEDS: Primidone 50 MG Tablet PO (12:06)
[2019-08-05] MEDS: Acyclovir 200 MG Capsule 400 MG PO (12:06)
[2019-08-05] MEDS: Escitalopram Oxalate 10 MG Tablet PO (12:06)
[2019-08-05] MEDS: metFORMIN HCl 500 MG Tablet PO (12:06)
[2019-08-05] MEDS: Doxycycline 100 MG CAPSULE PO (12:06)
--- NOTE | 2019-08-05 12:36 | PHA.DC.MR ---
Pharmacy Service has performed discharge medication reconciliation for this patient. No new medications added to profile on this admission, medications assessed are previously reported home medications. The patient's discharge medication list was reviewed for discrepancies and discrepancies were resolved. Home Medications Buspirone HCl 20 mg PO TID PRN PRN 03/05/17 Nadolol [Corgard (Beta Torin)] 160 mg PO QHS 03/05/17 Oxybutynin Chloride [Ditropan Xl] 15 mg PO QHS 03/05/17 Quetiapine Fumarate [Quetiapine Fumarate ER] 300 mg PO QHS 03/05/17 buPROPion XL [Wellbutrin Xl] 450 mg PO DAILY 03/05/17 Lisinopril 20 mg PO QHS 03/20/17 omeprazole 10 mg capsule,delayed release 10 mg PO DAILY 02/18/18 valacyclovir 1 gram tablet 1,000 mg PO DAILY 02/18/18 Diazepam [Valium] 10 mg PO BID PRN PRN 03/11/18 Orphenadrine [Norflex] 100 mg PO BID PRN 03/11/18 traMADol [Ultram] 100 mg PO Q6H PRN PRN 03/11/18 Albuterol Inhaler [Ventolin Hfa] 2 puff INHALATION Q4H PRN PRN 05/29/18 glimepiride 2 mg tablet 4 mg PO BID tab 09/20/18 metformin 500 mg tablet 500 mg PO BID #60 tab 09/25/18 Insulin Glargine,Hum.rec.anlog [Basaglar Kwikpen U-100] 30 unit SUBCUT DAILY 10/07/18 Rizatriptan Benzoate [Rizatriptan] 5 mg PO DAILY PRN 10/07/18 Pregabalin [Lyrica] 75 mg PO TID 10/14/18 Insulin Lispro [Humalog KwikPen] 0 - 100 unit SQ TIDCM 12/05/18 Liraglutide [Victoza 2-Konrad] 0.6 mg SQ DAILY 12/05/18 Dicyclomine HCl [Bentyl] 20 mg PO TIDAC #20 cap 07/28/19 Doxycycline Monohydrate [Monodox] 100 mg PO BID 08/04/19 Escitalopram Oxalate [Lexapro] 10 mg PO DAILY 08/04/19 Fluconazole [Diflucan] 150 mg PO X1 08/04/19 Fluticasone 0.05% [Flonase Nasal [place]] 2 spray NASAL DAILY 08/04/19 Oxycodone HCl/Acetaminophen [Endocet 5-325 Tablet] 1 ea PO Q6H PRN 08/04/19 Primidone [Mysoline] 50 mg PO 4X/DAY 08/04/19 Mometasone Furoate 1 applic TOPICAL DAILY 08/05/19
== END 2019-08-05 10:20 | disposition home or self-care (01) ==
LOC: ED 16:44 → PCU 17:45
PROVIDERS: Family Medicine; Admitting Provider Internal Medicine; Emergency Provider Physician Assistant Medical; Family Provider Internal Medicine; PCP Internal Medicine
DX: R07.89 Other chest pain (principal); I10 Essential (primary) hypertension; J44.9 Chronic obstructive pulmonary disease, unspecified; E66.01 Morbid (severe) obesity due to excess calories; K21.9 Gastro-esophageal reflux disease without esophagitis; M79.7 Fibromyalgia; E88.81 Metabolic syndrome and other insulin resistance; G47.33 Obstructive sleep apnea (adult) (pediatric); F31.9 Bipolar disorder, unspecified; F41.9 Anxiety disorder, unspecified; E11.65 Type 2 diabetes mellitus with hyperglycemia; G89.4 Chronic pain syndrome; F90.9 Attention-deficit hyperactivity disorder, unspecified type; Z68.43 Body mass index [BMI] 50.0-59.9, adult; Z71.3 Dietary counseling and surveillance; Z79.899 Other long term (current) drug therapy; Z79.4 Long term (current) use of insulin; I87.8 Other specified disorders of veins; G43.909 Migraine, unspecified, not intractable, without status migrainosus
CPT/HCPCS: 36415; 71045; 78452; 80048; 82962; 84484; 85025; 85610; 85730; 93005; 93017; 96372; 96374; 96375; 99218; 99285; A9500; J7030; A4216; G0378; J2405; J2785

== ENCOUNTER → 2019-08-28 09:53 | Outpatient (CLI) | payer MEDICAID, SELFPAY ==
[2019-08-04 17:53] VITALS: BMI 51.8
--- NOTE | 2019-08-28 13:44 | NEURO ---
NCS and/or EMG Patient Report Ordering Doctor: Gurpreet Swartz DATE OF SERVICE: 08/28/19 Edel Lang is a 53-year-old female presents for electrodiagnostic testing of the right upper limb. She reports numbness and tingling in the right hand. She had a carpal tunnel release done approximately 3 years ago. Electrodiagnostic findings: Right median motor nerve demonstrates normal distal latency, amplitude with reduced conduction velocity. Right ulnar motor nerve demonstrates normal distal latency and amplitude with an approximately 33% drop in conduction velocity across the elbow. Prolonged right ulnar F-wave. Prolonged right median sensory latency. On needle EMG, all muscles tested in the right upper limb showed no evidence of denervation with normal motor unit action potentials. Next Electrodiagnostic impression: This is an abnormal study in the right upper limb. 1. Electrodiagnostic findings demonstrate right ulnar neuropathy, consistent with a moderate right cubital tunnel syndrome. 2. Electrodiagnostic findings demonstrate right-sided median neuropathy. This is consistent with a mild recurrent carpal tunnel syndrome. If there are any further questions, please do not hesitate to contact me
== END ==
PROVIDERS: Family Provider Internal Medicine; PCP Internal Medicine; Referring Provider Orthopaedic Surgery; Visit Provider Orthopaedic Surgery
DX: M16.0 Bilateral primary osteoarthritis of hip (principal); M25.551 Pain in right hip; G89.29 Other chronic pain; R20.0 Anesthesia of skin; R20.2 Paresthesia of skin
CPT/HCPCS: 95886; 95910

== ENCOUNTER 2019-09-22 19:08 | Emergency (ER) | payer MEDICAID, SELFPAY ==
[2019-08-04 17:53] VITALS: BMI 51.8
[2019-09-22 19:11] VITALS: BP 128/93; PULSE 81; RESP 20; TEMP 36.8; O2SAT 96; BMI 51.1
--- NOTE | 2019-09-22 19:42 | CT_ITS ---
STUDY: CT BRAIN WITHOUT CONTRAST REASON FOR EXAM: Female, 53 years old. Migraine headaches RADIATION DOSAGE (If Supplied By Facility): CTDIvol = ( 44.99 ) mGy, DLP = ( 829.85 ) mGycm TECHNIQUE: Transaxial CT imaging of the brain was performed without administration of intravenous contrast material. Individualized dose optimization techniques were used for this CT. COMPARISON: 06/29/2018 FINDINGS: Normal soft tissue structures. Normal calvarium. Normal size ventricles and extra-axial spaces for the patient's age. Normal white matter tracts of the cerebral hemispheres. Normal basal ganglia and thalami. Normal brainstem. Normal cerebellum. There is no intracranial hemorrhage. There are no findings of an acute ischemic infarction. Normal visualized paranasal sinuses. CT/Brain/Head without Contrast IMPRESSION: Normal unenhanced CT scan of the brain. Electronically Signed: Akshat Roth MD at 20:53 EST , Service support ,
[2019-09-22] MEDS: DiphenhydrAMINE 50 MG/ML Syringe 25 MG IV (19:54)
[2019-09-22] MEDS: Metoclopramide 10 MG/2 ML Vial IV (19:54)
[2019-09-22 19:58] LABS: Absolute Neutrophil Count 2.9 X10^3/uL (2.0-7.7); Basophil# 0.01 X10^3/uL; Basophil% 0.2 % (0-1); Eosinophil# 0.01 X10^3/uL; Eosinophils% 0.2 % (0-5); Hematocrit 37.8 % (37-47); Hemoglobin 11.9 g/dL (12.0-15.0); Lymphocyte % 18.5 % (19-41); Mean Corp Hgb Conc 31.5 g/dL (32-36); Mean Corpuscular Volume 79.4 fL (81-99); Mean Platelet Vol. 9.9 fl (6.2-12.0); Monocyte# 0.56 X10^3/uL; NRBC Flagged by Analyzer 0 % (0-5); Neutrophil # 2.92 X10^3/uL (2.7-7.7); Neutrophil % 67.6 % (47-70); Platelet Count 187 K/mm3 (150-450); RBC Distribution Width CV 14.6 % (11.6-14.6); RBC Distribution Width SD 42.3 fl (35.1-43.9); Red Blood Count 4.76 M/mm3 (4.2-5.4); White Blood Count 4.3 K/mm3 (4.4-11.0)
[2019-09-22 20:10] LABS: Anion Gap 7 (5-15); BUN 17 mg/dL (7-18); BUN/Creat Ratio 19.7 RATIO (10-20); Calcium,Total 9.1 mg/dL (8.5-10.1); Chloride 101 mmol/L (98-107); Creatinine, Serum 0.86 mg/dL (0.55-1.02); EST Glomerular Filtration Rate 72 mL/min (>60); Est Glom Filt Rate - Afr Amer 88 mL/min (>60); Estimated Creatinine Clearance 66.51 ml/min; Glucose 297 mg/dL (74-106); Potassium 4.1 mmol/L (3.5-5.1); Sodium Level 135 mmol/L (136-145)
--- NOTE | 2019-09-22 21:09 | ED.VISSUMM ---
- ER Visit Summary Date of Service: 09/22/19 Chief Complaint: Headache History of Present Illness: The patient is a 53 F who presents with a headache that has been constant for the past week. Patient states the pain is over the right parietal area. Patient describes the pain as dull. Patient states he has a history of migraine headaches but this feels somewhat different. Patient states this is not the worst headache she is ever had. Patient admits to nausea but denies any vomiting. Patient denies any scotoma. Patient states that she normally gets auras with her migraine headaches but has not had an aura with this one. Patient admits to some numbness to the right side of her face. Patient denies any weakness. Patient denies any difficulty breathing or difficulty swallowing. Patient denies any difficulty talking. Physical Examination: Vital signs are stable. Patient is afebrile. Patient is in no acute distress. Oral mucosa is pink and moist. Neck is supple. Trachea is midline. There is no JVD noted. Heart was regular rate and rhythm. Lungs are clear and equal bilaterally. Abdomen is soft. Bowel sounds are normal. There is no tenderness. There is no guarding noted. Skin is warm dry. Cranial nerves II through XII are intact. There are no focal motor or sensory deficits noted. Test Results: CBC and basic metabolic profile were essentially within normal limits. Glucose was elevated to 97 but the patient is diabetic. CT scan of the brain was obtained. There is no acute intracranial abnormality noted. Emergency Department Course and Treatment: Patient was given IV fluids, Reglan, and Benadryl. Patient felt better on reevaluation. Patient was instructed to rest in a dark quiet room. Patient was instructed to follow-up with her primary care physician in 5 to 7 days. Patient understood and was agreeable with the plan. All questions were answered. Disposition: Discharge home Impression: Migraine headache This note was generated with [employer] dictation software. It may contain incorrect words, spelling, and punctuation that were not noted in review of the chart prior to signing ED Disposition - Plan for ED Patient: Disposition: Home or Assisted Living Diagnosis: Migraine headache Instructions: ED, Migraine (Classical) Referrals: Cristal Wolf MD [Primary Care Provider] - 5-7 Days
[2019-09-22 21:16] VITALS: BP 127/86; PULSE 71; PULSE 74; RESP 18; O2SAT 97
== END 2019-09-22 21:21 | disposition home or self-care (01) ==
PROVIDERS: Emergency Provider Emergency Medicine; Family Provider Internal Medicine; PCP Internal Medicine
DX: G43.909 Migraine, unspecified, not intractable, without status migrainosus (principal)
CPT/HCPCS: 70450; 80048; 85025; 96374; 96375; 99285; A4216

== ENCOUNTER 2019-10-09 11:53 | Emergency (ER) | payer MEDICAID, SELFPAY ==
[2019-10-09] VITALS (7 sets, daily range): BP systolic 100–126; BP diastolic 49–74; PULSE 72–78; RESP 14–18; TEMP 36.2; O2SAT 93–97; BMI 54.0
--- NOTE | 2019-10-09 12:14 | EKG12_ITS ---
Test Reason : MHC Blood Pressure : / mmHG Vent. Rate : 076 BPM Atrial Rate : 076 BPM P-R Int : 178 ms QRS Dur : 104 ms QT Int : 380 ms P-R-T Axes : 036 -06 -26 degrees QTc Int : 427 ms Normal sinus rhythm Incomplete right bundle branch block ST & T wave abnormality, consider anterolateral ischemia Abnormal ECG Confirmed by BAN RIZO, AUGUSTINA ([id number]), television news video editor NIKHIL RIOS ([id number]) on 10/11/2019 12:35:33 PM Referred By: MARY Confirmed By:MARANDA CEVALLOS MD
--- NOTE | 2019-10-09 12:22 | CM.ED ---
Social Work Consult: Suicidal Informant: Dr. Lester Per triage note patient was sent in by crisis. Telephone call to [facility]. Crisis has already completed assessment in the community. Crisis will continue to follow for placement. Medical staff updated. Donna KAUFMAN, BRADY
[2019-10-09 12:26] LABS: Mucous, Urine 0 SEEN /hpf (<or=2+); Red Blood Cells-Urine 0 SEEN /hpf (0-5)
[2019-10-09 12:34] LABS: Color, Urine Yellow (Yellow); Glucose, Dipstick 100 mg/dl (Normal); Ketone-Dipstick Negative (Negative); Leukocyte Esterase-Dipstick Negative /ul (Negative); Nitrite-Dipstick Negative (Negative); Occult Blood-Urine Negative /ul (Negative); Protein-Dipstick Negative (Negative); Specific Gravity, Urine 1.015 (1.002-1.030); Urine Bilirubin Dipstick Negative (Negative); Urine Clarity Sl. Cloudy (Clear); Urine Urobilinogen 4 mg/dl (Normal)
--- NOTE | 2019-10-09 12:34 | ED.RN ---
PT STATES SHE HAS BEEN UNDER A LARGE AMOUNT OF STRESS LATELY FOR MULTIPLE REASONS. 1. 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 2. 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 3. SHE IS IN A NEW RELATIONSHIP. 4. 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 5. SHE HAS BEEN SEEING BLACK ROUND BALLS ROLLING AROUND ON THE FLOOR COLLIDING WITH EACH OTHER. 6. SHE HAS BEEN HEARING VOICES THAT ARE CONSTANT AND TELLING HER TO TAKE HER OWN LIFE. PT STATES HER PLAN IS TO BORROW A CAR AND GO DRIVE IT OFF A [place]. SHE STATES THE THOUGHTS ARE CONSTANT AND DO NOT GO AWAY.
--- NOTE | 2019-10-09 12:39 | ED.VISSUMM ---
- ER Visit Summary Date of Service: 10/09/19 Chief Complaint: Depressed and suicidal ideation History of Present Illness: The patient is a 53 F history of depression, bipolar and is insulin-dependent diabetes. Patient states depressed since her father in February. She is hearing voices the voices are telling her to kill herself. She has a plan to drive a car off a [place]. She denies any current attempts. She was hospitalized for depression and suicidal ideation 7 years ago. [facility] is [facility] by [facility] and I believe they sent her in today. She denies any attempted overdose. Physical Examination: Middle-aged female no acute distress vital signs are stable afebrile. HEENT exam unremarkable atraumatic. Moist mucous membranes. Neck nontender no signs of trauma. Lungs clear to auscultation bilaterally. Heart regular rhythm no murmur rate about 80. Chest were nontender. Abdomen morbidly obese but soft and nontender normal bowel sounds no peritoneal signs. Patient is moving all 4 extremities. No edema. No signs of trauma. No track maldonado. Neurologically she is awake and alert with no focal motor deficits. Test Results: CBC White count of 4. Hemoglobin 11 units of baseline anemia. Electrolytes unremarkable normal creatinine of 1. Glucose 252 normal gap. Liver enzymes normal. UA ordered by nursing staff was negative. Serum test negative. Tox screen positive for barbiturates and benzodiazepines. Alcohol level negative. EKG was also ordered by nursing staff there was a sinus rhythm rate of 76 with no acute abnormalities. 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 She is hearing voices to kill herself. She will undergo ED mental health evaluation. Nursing staff ordered an EKG due to where she may need to be admitted to. She is not having any chest pain whatsoever. She became anxious and was given p.o. Ativan. Repeat exam she is doing well at 1415. Awaiting crisis evaluation. Treatment Plan: [] Disposition: Crisis evaluation for placement for suicidal ideation Impression: Acute on chronic depression with suicidal ideation History of bipolar disorder etiology. This note was generated with [employer] software. It may contain incorrect words, spelling, and punctuation that were not noted in review of the chart prior to signing ED Disposition - Plan for ED Patient: Referrals: Cristal Wolf MD [Primary Care Provider] -
[2019-10-09 12:40] LABS: Squamous Epithelial Cells - UA 0-5 SEEN /hpf (5-10); White Blood Cells 0-5 SEEN /hpf (0-5)
[2019-10-09 12:41] LABS: Bacteria RARE /hpf (None Seen)
[2019-10-09 12:52] LABS: Absolute Lymphocyte Count 0.78 X10^3/uL (0.83-4.51); Absolute Neutrophil Count 3.1 X10^3/uL (2.0-7.7); Hematocrit 37.7 % (37-47); Hemoglobin 11.7 g/dL (12.0-15.0); Lymphocyte # 0.78 X10^3/ul (4.0); Lymphocyte % 18.3 % (19-41); Mean Corpuscular Hgb 25.1 pg (27.0-32.0); Mean Corpuscular Volume 80.9 fL (81-99); Mean Platelet Vol. 9.5 fl (6.2-12.0); Monocyte% 9.4 % (0-10); NRBC Flagged by Analyzer 0 % (0-5); Neutrophil # 3.07 X10^3/uL (2.7-7.7); Neutrophil % 71.8 % (47-70); Platelet Count 148 K/mm3 (150-450); RBC Distribution Width CV 15.4 % (11.6-14.6); RBC Distribution Width SD 44.9 fl (35.1-43.9); Red Blood Count 4.66 M/mm3 (4.2-5.4); White Blood Count 4.3 K/mm3 (4.4-11.0)
[2019-10-09 13:05] LABS: Internal QC Validated? YES +Cl - CLEAR BKGD; Pregnancy, Serum, hCG Quali. NEGATIVE Negative
[2019-10-09 13:08] LABS: Amphetamine Urine VISTA NEGATIVE (<1000 ng/mL); Barbiturate Urine VISTA POSITIVE (< 200 ng/mL); Benzodiazepine Urine VISTA POSITIVE (< 200 ng/mL); Cocaine Urine VISTA NEGATIVE (< 300 ng/mL); Ecstacy Urine VISTA NEGATIVE (< 500 ng/mL); Methadone Urine VISTA NEGATIVE (< 300 ng/mL); PCP Urine VISTA NEGATIVE (< 25 ng/mL); THC Urine VISTA NEGATIVE (< 50 ng/mL); Vista UDS pH Range 6
[2019-10-09 13:12] LABS: AST(SGOT) 26 U/L (15-37); Alanine Aminotransfer ALT/SGPT 37 U/L (13-56); Albumin, Serum 3.4 g/dL (3.2-5.0); Alkaline Phosphatase 73 U/L (45-117); Anion Gap 7 (5-15); BUN 27 mg/dL (7-18); BUN/Creat Ratio 26.7 RATIO (10-20); Bilirubin, Direct 0.14 mg/dL (0.00-0.30); Chloride 102 mmol/L (98-107); Creatinine, Serum 1.01 mg/dL (0.55-1.02); EST Glomerular Filtration Rate 60 mL/min (>60); Est Glom Filt Rate - Afr Amer 73 mL/min (>60); Estimated Creatinine Clearance 52.06 ml/min; Globulin 4.3 g/dL (2.2-4.2); Glucose 252 mg/dL (74-106); Potassium 4.7 mmol/L (3.5-5.1); Protein, Total 7.7 g/dL (6.4-8.2); Sodium Level 135 mmol/L (136-145)
[2019-10-09 13:26] LABS: Alcohol, Blood (Medical)-Serum < 3.0 mg/dL
--- NOTE | 2019-10-09 13:40 | NURSING ---
CALLED [facility], TALKED TO CARLOS ALBERTO. PATIENT IS MEDICALLY CLEARED
[2019-10-09] MEDS: LORazepam 1 MG Tablet PO (14:37)
--- NOTE | 2019-10-09 15:08 | NURSING ---
[facility] HERE FOR PATIENT
--- NOTE | 2019-10-09 17:26 | NURSING ---
CALLED [facility], UNABLE TO TRANSPORT CALLED [facility], UNABLE TO TRANSPORT
--- NOTE | 2019-10-09 17:27 | NURSING ---
CALLED [facility], ETA IS 2 HR
== END 2019-10-09 20:11 ==
LOC: ED 13:09
PROVIDERS: Emergency Provider Emergency Medicine; Family Provider Internal Medicine; PCP Internal Medicine
DX: R45.851 Suicidal ideations (principal); E11.9 Type 2 diabetes mellitus without complications; Z79.4 Long term (current) use of insulin; F31.9 Bipolar disorder, unspecified
CPT/HCPCS: 36415; 80048; 80076; 80307; 80320; 81001; 84703; 85025; 93005; 99284; G0480

== ENCOUNTER 2019-12-02 09:44 | Emergency (ER) | payer MEDICAID, SELFPAY ==
[2019-10-09 11:55] VITALS: BMI 54.0
[2019-12-02 09:44] VITALS: BP 127/84; PULSE 73; RESP 16; TEMP 37.1; O2SAT 92; BMI 50.2
[2019-12-02 10:03] VITALS: BP 127/84; PULSE 73; RESP 16; TEMP 37.1; O2SAT 92
--- NOTE | 2019-12-02 10:09 | EKG12_ITS ---
Test Reason : Blood Pressure : / mmHG Vent. Rate : 070 BPM Atrial Rate : 070 BPM P-R Int : 178 ms QRS Dur : 104 ms QT Int : 390 ms P-R-T Axes : 033 -10 -30 degrees QTc Int : 421 ms Normal sinus rhythm Incomplete right bundle branch block T wave abnormality, consider anterolateral ischemia Abnormal ECG Confirmed by GINGER RIZO, VENU ([id number]), tape editor NIKHIL RIOS ([id number]) on 12/03/2019 10:11:39 AM Referred By: Confirmed By:VENU MILES MD
--- NOTE | 2019-12-02 10:09 | RAD_ITS ---
STUDY: X-RAY CHEST REASON FOR EXAM: Female, 54 years old. Sob/dyspnea TECHNIQUE: PA and lateral views of the chest. COMPARISON: Comparison is made with prior study dated August 04, 2019. FINDINGS: EKG electrodes are seen. Elevation of the right hemidiaphragm. Mild degree of increased markings at the right lung base suggestive of atelectasis and/or scarring blunting of both costophrenic angles. There is borderline cardiomegaly. Normal mediastinum and keli. Normal visualized pulmonary arteries. Normal visualized aortic arch and descending thoracic aorta. There are diffuse degenerative changes of the visualized thoracic spine. Normal visualized ribs, clavicles, and shoulders. There is no demonstrated abnormality of the visualized soft tissue structures of the upper abdomen. RAD/Chest PA and Lateral IMPRESSION: Elevation of the right hemidiaphragm with increased markings at the right lung base suggestive of linear atelectasis and/or scarring. Electronically Signed: Kevin Gaxiola, at 11:12 EST , Service support ,
[2019-12-02 10:37] LABS: Absolute Lymphocyte Count 0.57 X10^3/uL (0.83-4.51); Absolute Neutrophil Count 2.2 X10^3/uL (2.0-7.7); Hematocrit 35.9 % (37-47); Lymphocyte # 0.57 X10^3/ul (4.0); Lymphocyte % 17.5 % (19-41); Mean Corp Hgb Conc 30.6 g/dL (32-36); Mean Corpuscular Hgb 24.8 pg (27.0-32.0); Mean Platelet Vol. 9.4 fl (6.2-12.0); Monocyte# 0.42 X10^3/uL; Monocyte% 12.9 % (0-10); NRBC Flagged by Analyzer 0 % (0-5); Neutrophil # 2.24 X10^3/uL (2.7-7.7); POSITIVE DIFFERENTIAL YES; POSITIVE MORPHOLOGY YES; Platelet Count 155 K/mm3 (150-450); RBC Distribution Width CV 14.6 % (11.6-14.6); Red Blood Count 4.43 M/mm3 (4.2-5.4); White Blood Count 3.3 K/mm3 (4.4-11.0)
[2019-12-02 10:41] LABS: Differential Indicated SCAN CRITERIA MET
[2019-12-02 11:08] LABS: Anion Gap 7 (5-15); BUN 18 mg/dL (7-18); BUN/Creat Ratio 20.3 RATIO (10-20); Calcium,Total 8.6 mg/dL (8.5-10.1); Chloride 101 mmol/L (98-107); Creatinine, Serum 0.88 mg/dL (0.55-1.02); EST Glomerular Filtration Rate 70 mL/min (>60); Est Glom Filt Rate - Afr Amer 85 mL/min (>60); Estimated Creatinine Clearance 64.23 ml/min; Glucose 297 mg/dL (74-106); Potassium 3.9 mmol/L (3.5-5.1); Sodium Level 135 mmol/L (136-145)
[2019-12-02 12:00] VITALS: BP 119/83; PULSE 65; RESP 16; TEMP 37.1; O2SAT 92
--- NOTE | 2019-12-02 12:25 | ED.DCSUM_ITS ---
- ER Visit Summary Date of Service: 12/02/19 Chief Complaint: Shortness of breath History of Present Illness: The patient is a 54 F who presents with shortness of breath that has been getting worse over the last 3 days. Patient states she has had a cough but denies any sputum production. Patient admits to bilateral ear pain. Patient also admits to some subjective chills. Patient states she has some dull pain in her chest. Patient states her breathing is worse when she bends forward. Patient has a history of asthma and COPD. Patient states she has been using her albuterol inhalers at home every 4 hours. Physical Examination: Vital signs are stable. Patient is afebrile. Patient is in no acute distress. Oral mucosa is pink and moist. Neck is supple. Trachea is midline. There is no JVD. Heart was regular rate and rhythm. Lungs show rhonchi in the bases bilaterally. There are decreased breath sounds in the right base. Abdomen is soft. Bowel sounds are normal. There is no tenderness. Cranial nerves II through XII are intact. There are no focal motor or sensory deficits noted. Extremities are intact. There is no calf tenderness or edema. Test Results: EKG showed normal sinus rhythm with a rate of 70. There are nonspecific ST-T wave changes which are unchanged compared to previous EKG dated 10/09/2019. PA and lateral chest x-ray was obtained. There is an elevated right hemidiaphragm with atelectasis versus infiltrate in the right base. These were interpreted by the radiologist and myself. CBC shows a mild anemia with a hemoglobin of 11.0 and hematocrit of 35.9. Basic metabolic profile showed a glucose of 297. Troponin was normal. Emergency Department Course and Treatment: Patient was given a DuoNeb aerosol here. Patient felt better on reevaluation. Patient was given a prescription for Zithromax. Patient was instructed to follow-up with her primary care physician in 5 to 7 days. Patient understood and was agreeable with the plan. All questions were answered. Disposition: Discharge home Impression: 1. Pneumonia This note was generated with [employer] software. It may contain incorrect words, spelling, and punctuation that were not noted in review of the chart prior to signing ED Disposition - Plan for ED Patient: Disposition: Home or Assisted Living Diagnosis: Pneumonia Instructions: PNEUMONIA (Adult) Prescriptions: Azithromycin [Zithromax Z-Konrad] 250 mg PO UD #1 box Prescription Printed Referrals: Cristal Wolf MD [Primary Care Provider] - 5-7 Days
[2019-12-02 12:31] VITALS: PULSE 65; RESP 15
[2019-12-02] MEDS: Ipratropium/Albuterol Sulfate 3 ML AMPUL.NEB INHALATION (12:31)
[2019-12-02 12:45] VITALS: BP 113/74; PULSE 71; RESP 20; O2SAT 92
--- NOTE | 2019-12-02 12:45 | ED.RN ---
REVIEWED D/C INSTRUCTIONS, FOLLOW UP CARE, PRESCRIPTION, AND S/S THAT WOULD WARRANT A RETURN TO THE ED WITH PT. PT VERBALIZED AN UNDERSTANDING AND DENIES FURTHER QUESTIONS FOR THIS RN. PT SKIN P/W/D, RESP EVEN AND UNLABORED, PT A&O X 3, NO DISTRESS NOTED. PT AMBULATED OUT OF ED, GAIT STEADY.
[2019-12-03 09:55] LABS: Pathologist Review Reviewed
== END 2019-12-02 12:46 | disposition home or self-care (01) ==
PROVIDERS: Emergency Provider Emergency Medicine; Family Provider Internal Medicine; PCP Internal Medicine
DX: J18.9 Pneumonia, unspecified organism (principal); E66.9 Obesity, unspecified; E11.9 Type 2 diabetes mellitus without complications; I10 Essential (primary) hypertension; J44.9 Chronic obstructive pulmonary disease, unspecified
CPT/HCPCS: 71046; 80048; 84484; 85025; 93005; 94640; 99284; A4216

== ENCOUNTER 2020-01-04 13:45 | Emergency (ER) | payer MEDICAID, SELFPAY ==
[2020-01-04 13:47] VITALS: BP 140/91; PULSE 81; RESP 16; TEMP 36.4; O2SAT 93; BMI 48.6
--- NOTE | 2020-01-04 14:00 | EKG12_ITS ---
Test Reason : MENTAL CLEARANCE Blood Pressure : / mmHG Vent. Rate : 079 BPM Atrial Rate : 079 BPM P-R Int : 174 ms QRS Dur : 098 ms QT Int : 394 ms P-R-T Axes : 045 -16 -16 degrees QTc Int : 451 ms Normal sinus rhythm Prominent R-Wave in V1; Consider Lead Misplacement, Early Transition, Posterior DE of of Indeterminat e Age, Normal Variant ST & T wave abnormality, consider anterior ischemia Abnormal ECG Confirmed by AMY RIZO, NICHOLAS ([id number]), digital editor KARMEN ORTIZ ([id number]) on 01/08/2020 8:49:58 AM Referred By: YOHANA Confirmed By:NICHOLAS REYES MD
--- NOTE | 2020-01-04 14:02 | ED.VIS.GEN ---
History of Present Illness Chief Complaint: Suicidal Informant: Patient Narrative: She is presenting with suicidal ideations. She would really like not to hurt her self, however she has voices that are telling her she must hurt herself. She has had history of hallucinations in the past she was recently admitted about 2 months ago for similar complaints. She has a history of schizoaffective and bipolar disorder. She has not done anything to hurt herself. She is accompanied by her daughter. Past Medical History - Allergies and Home Meds Allergies/Adverse Reactions: Allergies vancomycin Allergy (Severe, Verified 12/02/19 09:46) BURNING RED RASH ON LEGGS cefazolin sodium [From Ancef] Allergy (Verified 12/02/19 09:46) Hives Penicillins Allergy (Verified 12/02/19 09:46) Hives sumatriptan [From Imitrex] Allergy (Verified 12/02/19 09:46) Shortness of breath Primary Care Physician: Cristal Wolf MD [Primary Care Provider] - Past Medical History: - - Bipolar, schizoaffective, hypertension, diabetes Surgical History: herniorrhaphy, hysterectomy, - - tubes in ears, knee scopes, dr malik for left anterior leg wound, hernia repair, carpal tunnel surgery bilateral Smoking Status: Never smoker - Family History Paternal Family History: Family History (Last Reviewed 10/16/18 @ 14:32 by Dana Sweet) Other Hypertension Kidney disease Family History: Reports: Hypertension, Stroke Maternal Family History: Family History (Last Reviewed 10/16/18 @ 14:32 by Dana Sweet) Other Hypertension Kidney disease Family History: Reports: Heart Disease, Hypertension, Stroke Review of Systems All systems negative except as indicated General: Denies: Fever Cardiovascular: Denies: Chest pain, Palpitations Respiratory: Denies: Dyspnea, Cough Gastrointestinal: Denies: Abdominal pain Musculoskeletal: Denies: Myalgias Skin: Denies: Rash Neurological: Denies: Headache Psych: Reports: Suicidal thoughts, Suicidal ideations Endocrine: Denies: Polyuria Hematologic: Denies: Easy bruising Allergy: Denies: Uticaria Physical Exam Vital Signs/Narrative: Vital Signs Temp Pulse Resp BP Pulse Ox 01/04/20 13:47 97.5 F L 81 16 140/91 H 93 General: Well nourished, Obese. Negative for: Acute Distress Head: Normocephalic, Atraumatic ENT: Moist mucous membranes, No rhinorrhea Cardiovascular: Regular rate, Regular rhythm Respiratory: No distress Abdomen: Soft, Nontender Back: Nontender, Normal Inspection Extremities: Nontender. Negative for: No edema Skin: Normal color Neurological: Alert, Oriented x3 Psychological: - - Flat slightly depressed affect Diagnostic/Tx/Re-eval - Medical Decision Making Patient will be medically cleared, we will call the psychiatric liaison for transfer to a psychiatric facility ED Disposition - Plan for ED Patient: Disposition: Acute Care Hospital - Other Diagnosis: Acute psychosis, Suicidal ideation Referrals: Cristal Wolf MD [Primary Care Provider] -
[2020-01-04 14:47] VITALS: RESP 16
[2020-01-04 14:48] LABS: Absolute Lymphocyte Count 0.68 X10^3/uL (0.83-4.51); Absolute Neutrophil Count 3.2 X10^3/uL (2.0-7.7); Hematocrit 37.4 % (37-47); Hemoglobin 11.7 g/dL (12.0-15.0); Lymphocyte # 0.68 X10^3/ul (4.0); Lymphocyte % 15.8 % (19-41); Mean Corp Hgb Conc 31.3 g/dL (32-36); Mean Corpuscular Hgb 24.5 pg (27.0-32.0); Mean Corpuscular Volume 78.4 fL (81-99); Mean Platelet Vol. 9.8 fl (6.2-12.0); Monocyte# 0.44 X10^3/uL; Monocyte% 10.2 % (0-10); NRBC Flagged by Analyzer 0 % (0-5); Neutrophil # 3.17 X10^3/uL (2.7-7.7); Neutrophil % 73.8 % (47-70); Platelet Count 167 K/mm3 (150-450); RBC Distribution Width CV 14.1 % (11.6-14.6); RBC Distribution Width SD 39.8 fl (35.1-43.9); Red Blood Count 4.77 M/mm3 (4.2-5.4); White Blood Count 4.3 K/mm3 (4.4-11.0)
[2020-01-04 14:57] LABS: Internal QC Validated? YES +Cl - CLEAR BKGD; Pregnancy, Serum, hCG Quali. NEGATIVE Negative
[2020-01-04 15:03] LABS: Anion Gap 9 (5-15); BUN 16 mg/dL (7-18); Calcium,Total 9.1 mg/dL (8.5-10.1); Chloride 99 mmol/L (98-107); Creatinine, Serum 0.84 mg/dL (0.55-1.02); EST Glomerular Filtration Rate 74 mL/min (>60); Est Glom Filt Rate - Afr Amer 90 mL/min (>60); Estimated Creatinine Clearance 67.29 ml/min; Glucose 346 mg/dL (74-106); Potassium 4.1 mmol/L (3.5-5.1); Sodium Level 135 mmol/L (136-145)
[2020-01-04 15:05] LABS: Amphetamine Urine VISTA NEGATIVE (<1000 ng/mL); Barbiturate Urine VISTA NEGATIVE (< 200 ng/mL); Benzodiazepine Urine VISTA NEGATIVE (< 200 ng/mL); Cocaine Urine VISTA NEGATIVE (< 300 ng/mL); Ecstacy Urine VISTA NEGATIVE (< 500 ng/mL); Methadone Urine VISTA NEGATIVE (< 300 ng/mL); PCP Urine VISTA NEGATIVE (< 25 ng/mL); THC Urine VISTA NEGATIVE (< 50 ng/mL)
[2020-01-04] MEDS: Ziprasidone HCl 20 MG Capsule 40 MG PO (15:12)
--- NOTE | 2020-01-04 15:15 | ED.RN ---
PT' ENTIRE PURSE GIVEN TO GARTH EVERETT PER PT REQUEST.
[2020-01-04 15:21] LABS: Alcohol, Blood (Medical)-Serum < 3.0 mg/dL
[2020-01-04 15:37] LABS: Vista UDS pH Range 5
--- NOTE | 2020-01-04 15:44 | ED.RN ---
per dr. deras 1:1 sitter discharged.
--- NOTE | 2020-01-04 15:55 | DCINST.ED_ITS ---
ED Disposition - Plan for ED Patient: Disposition: Home or Assisted Living Diagnosis: Acute psychosis Instructions: Bipolar Disorder Prescriptions: Ziprasidone HCl [Geodon] 20 mg PO DAILY #2 cap Transmission Status: Pending to [facility] Referrals: Cristal Wolf MD [Primary Care Provider] -
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
[2020-01-04 16:04] VITALS: RESP 18
--- NOTE | 2020-01-06 16:01 | CM.ED ---
SOCIAL WORK SAFETY PLAN FOLLOW UP PHONE CALL TELEPHONE CALL TO PATIENT. PATIENT REPORTS ATTENDED CRISIS FOLLOW UP APPOINTMENT THIS AFTERNOON AND STATES IS DOING WELL. PATIENT REPORTS GOT A HEADACHE FROM THE [facility] AND STATES IS HIGHLY ALLERGIC TO THE MEDICATION. STAFF SYLVESTER. Kiko BOOTH MSW, SAW RUNNER.
== END 2020-01-04 16:04 | disposition home or self-care (01) ==
PROVIDERS: Emergency Provider Emergency Medicine; PCP Internal Medicine
DX: R45.851 Suicidal ideations (principal); F23 Brief psychotic disorder; E11.9 Type 2 diabetes mellitus without complications; I10 Essential (primary) hypertension; F31.9 Bipolar disorder, unspecified; Z82.49 Family history of ischemic heart disease and other diseases of the circulatory system; Z88.0 Allergy status to penicillin; Z88.1 Allergy status to other antibiotic agents; Z90.710 Acquired absence of both cervix and uterus
CPT/HCPCS: 80048; 80307; 80320; 84703; 85025; 93005; 99284; G0480

== ENCOUNTER 2020-02-02 16:56 | Emergency (ER) | payer MEDICAID, SELFPAY ==
[2020-02-02 16:59] VITALS: BP 154/88; PULSE 69; RESP 24; TEMP 36.9; O2SAT 97; BMI 49.3
--- NOTE | 2020-02-02 17:15 | ED.DCSUM_ITS ---
History of Present Illness Chief Complaint: Cough Informant: Patient Narrative: Patient states that for the past couple days she has had a dry nonproductive cough. She has been using her inhaler that she takes for COPD. No fevers sore throat runny nose vomiting or diarrhea. No headaches. States he went to [facility] urgent care yesterday and they swabbed her for the Covid 19 and it was negative. Today she states she was rushing around and got lightheaded and panicked and now she is here. She states she is otherwise feeling okay now. Past Medical History - Allergies and Home Meds Allergies/Adverse Reactions: Allergies vancomycin Allergy (Severe, Verified 02/02/20 17:02) BURNING RED RASH ON LEGGS cefazolin sodium [From Ancef] Allergy (Verified 02/02/20 17:02) Hives Penicillins Allergy (Verified 02/02/20 17:02) Hives sumatriptan [From Imitrex] Allergy (Verified 02/02/20 17:02) Shortness of breath Primary Care Physician: Cristal Wolf MD [Primary Care Provider] - As Needed Surgical History: herniorrhaphy, hysterectomy, - - tubes in ears, knee scopes, dr malik for left anterior leg wound, hernia repair, carpal tunnel surgery bi lateral Smoking Status: Never smoker - Family History Paternal Family History: Family History (Last Reviewed 10/16/18 @ 14:32 by Dana Sweet) Other Hypertension Kidney disease Family History: Reports: Hypertension, Stroke Maternal Family History: Family History (Last Reviewed 10/16/18 @ 14:32 by Dana Sweet) Other Hypertension Kidney disease Family History: Reports: Heart Disease, Hypertension, Stroke Review of Systems General: Denies: Chills, Fever, Sweats Eyes: Denies: Visual changes - bilaterally, Diplopia ENT: Denies: Rhinorrhea, Sore throat Cardiovascular: Denies: Chest pain, Palpitations Respiratory: Reports: Dyspnea, Cough. Denies: Sputum, Dyspnea on exertion Gastrointestinal: Denies: Abdominal pain, Nausea, Vomiting, Diarrhea, Melena, Hematochezia Genitourinary: Denies: Dysuria, Hematuria, Frequency Musculoskeletal: Denies: Back pain, Extremity Pain Skin: Denies: Rash, Wounds Neurological: Denies: Headache, Weakness, Numbness Physical Exam Vital Signs/Narrative: Vital Signs Temp Pulse Resp BP Pulse Ox 02/02/20 16:59 98.4 F 69 24 H 154/88 H 97 Inital Vital Signs reviewed: Yes General: Well nourished, Well developed, Obese, No Acute Distress Head: Normocephalic, Atraumatic Eyes: Perrl, EOMI ENT: Moist mucous membranes, No rhinorrhea Neck: Supple, Nontender Cardiovascular: Regular rate, Regular rhythm, No murmurs Respiratory: No distress, CTA bilaterally, Chest nontender Abdomen: Soft, Nontender, Nondistended, Normal bowel sounds Back: Nontender, Normal Inspection Extremities: Nontender, No edema Skin: Normal color, No rash Neurological: Alert, Oriented x3, Cranial nerves II-XII grossly intact, Normal Strength, Normal Sensation Psychological: Normal affect, Normal Mood Diagnostic/Tx/Re-eval - Medical Decision Making chest xray was negative for infiltrate. Patient will be started on prednisone and I recommend continued albuterol. She is to rest and hydrate. Follow-up with primary care if not improving ED Disposition - Plan for ED Patient: Disposition: Home or Assisted Living Diagnosis: Viral URI with cough Instructions: Copd Flare Prescriptions: Prednisone [Deltasone] 40 mg PO DAILY #10 tab Transmission Status: Received by [facility] Referrals: Cristal Wolf MD [Primary Care Provider] - As Needed
--- NOTE | 2020-02-02 17:20 | RAD_ITS ---
STUDY: X-RAY CHEST REASON FOR EXAM: Female, 54 years old. cough and COPD TECHNIQUE: PA and lateral views of the chest. COMPARISON: 12/02/2019 FINDINGS: The lungs are clear and expanded. Elevated right hemidiaphragm which is unchanged. Normal size heart. Normal mediastinum and keli. Normal visualized pulmonary arteries. Normal visualized aortic arch and descending thoracic aorta. Normal visualized thoracic spine. Normal visualized ribs, clavicles, and shoulders. There is no demonstrated abnormality of the visualized soft tissue structures of the upper abdomen. RAD/Chest PA and Lateral IMPRESSION: No change from 12/02/2019. Electronically Signed: Baljinder Morris MD at 17:36 EDT Tel , Service support ,
[2020-02-02 17:55] VITALS: BP 134/81; PULSE 63; RESP 16; O2SAT 98
== END 2020-02-02 17:57 | disposition home or self-care (01) ==
LOC: ED 17:25
PROVIDERS: Emergency Provider Emergency Medicine; PCP Internal Medicine
DX: J06.9 Acute upper respiratory infection, unspecified (principal); R05 Cough; J44.9 Chronic obstructive pulmonary disease, unspecified; Z82.49 Family history of ischemic heart disease and other diseases of the circulatory system; Z88.0 Allergy status to penicillin; Z88.1 Allergy status to other antibiotic agents; Z90.710 Acquired absence of both cervix and uterus
CPT/HCPCS: 71046; 99285

== ENCOUNTER 2020-03-16 13:03 | Emergency (ER) | payer MEDICAID, SELFPAY ==
[2020-03-16 13:07] VITALS: BP 135/94; PULSE 78; RESP 18; TEMP 36.8; O2SAT 94; BMI 48.0
--- NOTE | 2020-03-16 13:30 | ED.VIS.GEN ---
History of Present Illness Chief Complaint: Anxiety Informant: Patient Narrative: Patient has schizoaffective disorder, she is presenting with anxiety and suicidal ideations although she does not have any plan. She has been feeling more anxious recently although she cannot give me a good reason why. She has no chest pain shortness of breath fever or chills, she has no systemic complaints. Has been ongoing for about a week worse in the last few days. Past Medical History - Allergies and Home Meds Allergies/Adverse Reactions: Allergies vancomycin Allergy (Severe, Verified 03/16/20 13:06) BURNING RED RASH ON LEGGS cefazolin sodium [From Ancef] Allergy (Verified 03/16/20 13:06) Hives Penicillins Allergy (Verified 03/16/20 13:06) Hives sumatriptan [From Imitrex] Allergy (Verified 03/16/20 13:06) Shortness of breath ziprasidone [From Geodon] Adverse Reaction (Verified 03/16/20 13:06) NEEDS FOLLOW-UP AG X8 DAYS PER PT Primary Care Physician: Cristal Wolf MD [Primary Care Provider] - Past Medical History: - - Diabetes, hypertension, hypercholesterolemia, schizoaffective disorder Surgical History: herniorrhaphy, hysterectomy, - - tubes in ears, knee scopes, dr malik for left anterior leg wound, hernia repair, carpal tunnel surgery bilateral Smoking Status: Never smoker - Family History Paternal Family History: Family History (Last Reviewed 10/16/18 @ 14:32 by Dana Sweet) Other Hypertension Kidney disease Family History: Reports: Hypertension, Stroke Maternal Family History: Family History (Last Reviewed 10/16/18 @ 14:32 by Dana Sweet) Other Hypertension Kidney disease Family History: Reports: Heart Disease, Hypertension, Stroke Review of Systems All systems negative except as indicated General: Denies: Fever Eyes: Denies: Visual changes - bilaterally Cardiovascular: Denies: Chest pain Respiratory: Denies: Dyspnea Gastrointestinal: Denies: Abdominal pain, Nausea, Vomiting Musculoskeletal: Denies: Myalgias Skin: Denies: Rash Neurological: Denies: Headache, Weakness, Parasthesia Psych: Reports: Depression, Anxiety, Suicidal thoughts, Suicidal ideations Endocrine: Denies: Polyuria Physical Exam Vital Signs/Narrative: Vital Signs Temp Pulse Resp BP Pulse Ox 03/16/20 13:07 98.2 F 78 18 135/94 H 94 General: Well nourished, Well developed, Obese Eyes: Perrl, EOMI ENT: Moist mucous membranes Cardiovascular: Regular rate, Regular rhythm Abdomen: Soft, Nontender Back: Nontender, Normal Inspection Extremities: Nontender, No edema Skin: Normal color Neurological: Alert, Oriented x3, Normal Strength, Normal Sensation Psychological: - - Patient has a depressed affect she is slightly avoidant of eye contact, however she has relatively good insight, she understands that she has suicidal ideation she does not want to have though she does not want to hurt her self, she is lucid and coherent. Diagnostic/Tx/Re-eval - Medical Decision Making Patient will be medically clear, we will discuss with psychiatric liaison afterwards. Care of the patient will be turned to the oncoming emergency physician. ED Disposition - Plan for ED Patient: Diagnosis: Anxiety, Suicidal thoughts Referrals: Cristal Wolf MD [Primary Care Provider] -
[2020-03-16] MEDS: hydrOXYzine 50 MG/ML Vial IM (14:02)
[2020-03-16 14:32] LABS: Amphetamine Urine VISTA NEGATIVE (<1000 ng/mL); Barbiturate Urine VISTA NEGATIVE (< 200 ng/mL); Benzodiazepine Urine VISTA POSITIVE (< 200 ng/mL); Cocaine Urine VISTA NEGATIVE (< 300 ng/mL); Ecstacy Urine VISTA NEGATIVE (< 500 ng/mL); Methadone Urine VISTA NEGATIVE (< 300 ng/mL); PCP Urine VISTA NEGATIVE (< 25 ng/mL); THC Urine VISTA NEGATIVE (< 50 ng/mL); Vista UDS pH Range 6
[2020-03-16 14:40] LABS: Absolute Lymphocyte Count 0.52 X10^3/uL (0.83-4.51); Absolute Neutrophil Count 3.4 X10^3/uL (2.0-7.7); Hematocrit 34.8 % (37-47); Hemoglobin 10.8 g/dL (12.0-15.0); Lymphocyte # 0.52 X10^3/ul (4.0); Lymphocyte % 11.9 % (19-41); Mean Corpuscular Volume 77.3 fL (81-99); Mean Platelet Vol. 9.7 fl (6.2-12.0); Monocyte# 0.42 X10^3/uL; Monocyte% 9.6 % (0-10); NRBC Flagged by Analyzer 0 % (0-5); Neutrophil % 77.8 % (47-70); POSITIVE DIFFERENTIAL YES; Platelet Count 172 K/mm3 (150-450); RBC Distribution Width CV 15.2 % (11.6-14.6); RBC Distribution Width SD 42.4 fl (35.1-43.9); White Blood Count 4.4 K/mm3 (4.4-11.0)
[2020-03-16 14:41] LABS: Anion Gap 6 (5-15); BUN 10 mg/dL (7-18); BUN/Creat Ratio 13.1 RATIO (10-20); Calcium,Total 8.9 mg/dL (8.5-10.1); Chloride 101 mmol/L (98-107); Creatinine, Serum 0.76 mg/dL (0.55-1.02); EST Glomerular Filtration Rate 83 mL/min (>60); Est Glom Filt Rate - Afr Amer 101 mL/min (>60); Estimated Creatinine Clearance 74.38 ml/min; Glucose 213 mg/dL (74-106); Sodium Level 137 mmol/L (136-145)
[2020-03-16 14:45] LABS: Differential Indicated SCAN CRITERIA MET
[2020-03-16 14:46] LABS: Internal QC Validated? YES +Cl - CLEAR BKGD; Pregnancy, Serum, hCG Quali. NEGATIVE Negative
[2020-03-16 14:56] LABS: Alcohol, Blood (Medical)-Serum < 3.0 mg/dL
[2020-03-16 15:14] LABS: Platelet Estimate ADEQUATE (ADEQ); Red Cell Morphology NORM C+C NORMAL (NORM C&C)
[2020-03-16 15:35] VITALS: BP 152/97; PULSE 74; RESP 18; O2SAT 97
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
--- NOTE | 2020-03-16 16:40 | ED.DEP ---
ED Disposition - Plan for ED Patient: Disposition: Home or Assisted Living Diagnosis: Anxiety, Suicidal thoughts Instructions: ED Depression Referrals: Cristal Wolf MD [Primary Care Provider] -
[2020-03-16 16:47] VITALS: BP 149/99; PULSE 72; RESP 12; O2SAT 96
== END 2020-03-16 17:00 | disposition home or self-care (01) ==
PROVIDERS: Emergency Provider Emergency Medicine; PCP Internal Medicine
DX: F41.9 Anxiety disorder, unspecified (principal); R45.851 Suicidal ideations; E11.9 Type 2 diabetes mellitus without complications; E78.00 Pure hypercholesterolemia, unspecified; F25.9 Schizoaffective disorder, unspecified; I10 Essential (primary) hypertension; Z82.49 Family history of ischemic heart disease and other diseases of the circulatory system; Z88.0 Allergy status to penicillin; Z88.1 Allergy status to other antibiotic agents; Z90.710 Acquired absence of both cervix and uterus
CPT/HCPCS: 36415; 80048; 80307; 80320; 84703; 85025; 99282; G0480

== ENCOUNTER 2020-04-25 18:09 | Emergency (ER) | payer MEDICAID, SELFPAY ==
[2020-04-25 18:10] VITALS: BP 148/94; PULSE 69; RESP 16; TEMP 36.3; O2SAT 94; BMI 47.0
--- NOTE | 2020-04-25 18:18 | ED.VIS.GEN ---
History of Present Illness Chief Complaint: Constipation Informant: Patient Onset: Days Current Severity: Mild Narrative: The patient presents complaining of constipation for the last 2 days, she has history of IBS with chronic intermittent constipation extensive prior outpatient evaluation by her providers including colonoscopy showed no bowel obstruction or other causes of the above. She is eating and drinking she is passing gas she is had no vomiting no abdominal pain, she reports she just feels when she passes stool is very hard she has had no new medications no change in her diet she potentially has not been on a high-fiber diet as instructed Past Medical History - Allergies and Home Meds Allergies/Adverse Reactions: Allergies vancomycin Allergy (Severe, Verified 04/25/20 18:10) BURNING RED RASH ON LEGGS cefazolin sodium [From Ancef] Allergy (Verified 04/25/20 18:10) Hives Penicillins Allergy (Verified 04/25/20 18:10) Hives sumatriptan [From Imitrex] Allergy (Verified 04/25/20 18:10) Shortness of breath ziprasidone [From Geodon] Adverse Reaction (Verified 04/25/20 18:10) NEEDS FOLLOW-UP AG X8 DAYS PER PT Primary Care Physician: Cristal Wolf MD [Primary Care Provider] - Past Medical History: - Surgical History: herniorrhaphy, hysterectomy, - - tubes in ears, knee scopes, dr malik for left anterior leg wound, hernia repair, carpal tunnel surgery bilateral Smoking Status: Never smoker - Family History Paternal Family History: Family History (Last Reviewed 10/16/18 @ 14:32 by Dana Sweet) Other Hypertension Kidney disease Family History: Reports: Hypertension, Stroke Maternal Family History: Family History (Last Reviewed 10/16/18 @ 14:32 by Dana Sweet) Other Hypertension Kidney disease Family History: Reports: Heart Disease, Hypertension, Stroke Review of Systems ROS: - IBS with constipation General: Denies: Chills, Fever, Sweats Eyes: Denies: Visual changes - bilaterally, Diplopia ENT: Denies: Rhinorrhea, Sore throat Cardiovascular: Denies: Chest pain, Palpitations Respiratory: Denies: Dyspnea, Cough, Dyspnea on exertion Gastrointestinal: Reports: Constipation. Denies: Abdominal pain, Nausea, Vomiting, Diarrhea, Melena, Hematochezia Genitourinary: Denies: Dysuria, Hematuria, Frequency Musculoskeletal: Denies: Back pain, Extremity Pain Skin: Denies: Rash, Wounds Neurological: Denies: Headache, Weakness, Numbness Physical Exam Vital Signs/Narrative: Vital Signs Temp Pulse Resp BP Pulse Ox 04/25/20 18:10 97.3 F L 69 16 148/94 H 94 General: Well nourished, Well developed, No Acute Distress Head: Normocephalic, Atraumatic Eyes: Perrl, EOMI ENT: Moist mucous membranes, No rhinorrhea Neck: Supple, Nontender Cardiovascular: Regular rate, Regular rhythm, No murmurs Respiratory: No distress, CTA bilaterally, Chest nontender Abdomen: Soft, Nontender, Nondistended, Normal bowel sounds Back: Nontender, Normal Inspection Extremities: Nontender, No edema Skin: Normal color, No rash Neurological: Alert, Oriented x3, Cranial nerves II-XII grossly intact, Normal Strength, Normal Sensation Psychological: Normal affect, Normal Mood Diagnostic/Tx/Re-eval - Medical Decision Making Patient is in no distress her vital signs are unremarkable abdomen soft and nontender she does not wish to have a rectal exam or an enema she does not wish to undergo ED evaluation as she is had this before, she is eating and drinking without difficulty she is in no distress at this time we discussed options with her she is taken oral meds she is taken MiraLAX, at this time she will be started on GoLYTELY high-fiber food should follow-up with outpatient providers and return for change in symptoms Home stable Final impression acute recurrent constipation ED Disposition - Plan for ED Patient: Diagnosis: Constipation Instructions: ED Constipation Prescriptions: [id number]/Sod Sulf,Bicarb,Cl/KCl [Golytely Solution] 4,000 ml PO 4X/DAY #1 [email or web address] Prescription Printed Referrals: Cristal Wolf MD [Primary Care Provider] -
[2020-04-25 18:58] VITALS: BP 148/94; PULSE 69; RESP 18
== END 2020-04-25 18:59 | disposition home or self-care (01) ==
LOC: ED 18:41
PROVIDERS: Emergency Provider Emergency Medicine; PCP Internal Medicine
DX: K59.00 Constipation, unspecified (principal)
CPT/HCPCS: 99282

== ENCOUNTER 2020-05-04 16:54 | Emergency (ER) | payer MEDICAID, SELFPAY ==
[2020-05-04 16:55] VITALS: BP 158/105; PULSE 68; RESP 17; TEMP 36.1; O2SAT 98; BMI 46.1
--- NOTE | 2020-05-04 17:28 | ED.VIS.GEN ---
History of Present Illness Chief Complaint: Suicidal Informant: Patient Onset: Weeks Context: Gradual Onset Timing: Waxes and wanes Narrative: Patient presents with thoughts of just not wanting to go on any longer for the past couple of weeks. She states that a year ago February she lost her father. She lost her boyfriend 2 months ago. Her son who has special needs has been increasingly difficult of late. Patient states he just does not want go on any longer. She denies specific plan to harm herself. - Past Medical History (1) ADHD (attention deficit hyperactivity disorder) Status: Chronic (2) Bipolar disorder Status: Chronic (3) COPD Status: Chronic (4) GERD (gastroesophageal reflux disease) Status: Chronic (5) HTN (hypertension) Status: Chronic (6) Obstructive sleep apnea Status: Chronic (7) Type II diabetes mellitus Status: Chronic Past Medical History - Allergies and Home Meds Allergies/Adverse Reactions: Allergies vancomycin Allergy (Severe, Verified 05/04/20 16:55) BURNING RED RASH ON LEGGS cefazolin sodium [From Ancef] Allergy (Verified 05/04/20 16:55) Hives Penicillins Allergy (Verified 05/04/20 16:55) Hives sumatriptan [From Imitrex] Allergy (Verified 05/04/20 16:55) Shortness of breath ziprasidone [From Geodon] Adverse Reaction (Verified 05/04/20 16:55) NEEDS FOLLOW-UP AG X8 DAYS PER PT Primary Care Physician: Cristal Wolf MD [Primary Care Provider] - Prior records reviewed: Yes Surgical History: herniorrhaphy, hysterectomy, - - tubes in ears, knee scopes, dr malik for left anterior leg wound, hernia repair, carpal tunnel surgery bilateral Smoking Status: Never smoker - Family History Paternal Family History: Family History (Last Reviewed 10/16/18 @ 14:32 by Dana Sweet) Other Hypertension Kidney disease Family History: Reports: Hypertension, Stroke Maternal Family History: Family History (Last Reviewed 10/16/18 @ 14:32 by Dana Sweet) Other Hypertension Kidney disease Family History: Reports: Heart Disease, Hypertension, Stroke Review of Systems General: Denies: Chills, Fever Eyes: Denies: Visual changes - bilaterally ENT: Denies: Bilateral ear pain Cardiovascular: Denies: Chest pain Respiratory: Denies: Dyspnea, Cough Gastrointestinal: Denies: Abdominal pain Genitourinary: Denies: Dysuria Musculoskeletal: Denies: Extremity Pain Psych: Reports: Depression, Anxiety, Suicidal thoughts Hematologic: Denies: Easy bruising, Easy bleeding Allergy: Denies: Uticaria Physical Exam Vital Signs/Narrative: Vital Signs Temp Pulse Resp BP Pulse Ox 05/04/20 16:55 97.0 F L 68 17 158/105 H 98 Inital Vital Signs reviewed: Yes General: Well nourished, Well developed Head: Normocephalic ENT: Moist mucous membranes Neck: Supple Cardiovascular: Regular rate, Regular rhythm Respiratory: No distress, CTA bilaterally Abdomen: Soft, Nontender Extremities: Nontender Skin: Normal color, No rash Neurological: Alert, Oriented x3 Psychological: Depressed Diagnostic/Tx/Re-eval Laboratory Results 05/04/20 05/04/20 05/04/20 17:30 17:30 17:30 WBC 5.0 RBC 4.95 Hgb 11.9 L Hct 38.8 MCV 78.4 L MCH 24.0 L MCHC 30.7 L RDW Std Deviation 43.3 RDW Coeff of Jocy 15.5 H Plt Count 152 MPV 9.8 Immature Gran % (Auto) 0.600 Neut % (Auto) 71.4 H Lymph % (Auto) 17.3 L [place] % (Auto) 10.5 H Eos % (Auto) 0.2 Baso % (Auto) 0.0 Absolute Neuts (auto) 3.6 Absolute Lymphs (auto) 0.87 Nucleated RBC % 0 Sodium 139 Potassium 4.2 Chloride 104 Carbon Dioxide 27.0 Anion Gap 8 BUN 16 Creatinine 0.71 Estim Creat Clear Calc 79.61 Est GFR (MDRD) Af Amer 110 Est GFR (MDRD) Non-Af 91 BUN/Creatinine Ratio 22.6 H Glucose 200 H Calcium 9.2 Urine Opiates Screen Urine Methadone Screen Ur Barbiturates Screen Ur Phencyclidine Scrn Ur Amphetamines Screen U Methamphetamin-MDMA U Benzodiazepines Scrn Urine Cocaine Screen U Cannabinoids Screen Ur Drug Screen Comment Ethyl Alcohol < 3.0 05/04/20 17:35 WBC RBC Hgb Hct MCV MCH MCHC RDW Std Deviation RDW Coeff of Jocy Plt Count MPV Immature Gran % (Auto) Neut % (Auto) Lymph % (Auto) [place] % (Auto) Eos % (Auto) Baso % (Auto) Absolute Neuts (auto) Absolute Lymphs (auto) Nucleated RBC % Sodium Potassium Chloride Carbon Dioxide Anion Gap BUN Creatinine Estim Creat Clear Calc Est GFR (MDRD) Af Amer Est GFR (MDRD) Non-Af BUN/Creatinine Ratio Glucose Calcium Urine Opiates Screen NEGATIVE Urine Methadone Screen NEGATIVE Ur Barbiturates Screen NEGATIVE Ur Phencyclidine Scrn NEGATIVE Ur Amphetamines Screen NEGATIVE U Methamphetamin-MDMA NEGATIVE U Benzodiazepines Scrn POSITIVE H Urine Cocaine Screen NEGATIVE U Cannabinoids Screen NEGATIVE Ur Drug Screen Comment Ethyl Alcohol - Medical Decision Making Patient was given Vistaril to help with anxiety. Patient was seen by Gracia from social work. Patient has been discussed with [facility] and accepted. ED Disposition - Plan for ED Patient: Disposition: Psychiatric Hospital or Unit Diagnosis: Suicidal ideation Referrals: Cristal Wolf MD [Primary Care Provider] -
[2020-05-04] MEDS: hydrOXYzine PAM 25 MG Capsule 50 MG PO (18:03)
[2020-05-04 18:07] LABS: Absolute Lymphocyte Count 0.87 X10^3/uL (0.83-4.51); Absolute Neutrophil Count 3.6 X10^3/uL (2.0-7.7); Eosinophil# 0.01 X10^3/uL; Eosinophils% 0.2 % (0-5); Hematocrit 38.8 % (37-47); Hemoglobin 11.9 g/dL (12.0-15.0); Lymphocyte # 0.87 X10^3/ul (4.0); Lymphocyte % 17.3 % (19-41); Mean Corp Hgb Conc 30.7 g/dL (32-36); Mean Corpuscular Volume 78.4 fL (81-99); Mean Platelet Vol. 9.8 fl (6.2-12.0); Monocyte# 0.53 X10^3/uL; Monocyte% 10.5 % (0-10); NRBC Flagged by Analyzer 0 % (0-5); Neutrophil # 3.59 X10^3/uL (2.7-7.7); Neutrophil % 71.4 % (47-70); Platelet Count 152 K/mm3 (150-450); RBC Distribution Width CV 15.5 % (11.6-14.6); RBC Distribution Width SD 43.3 fl (35.1-43.9); Red Blood Count 4.95 M/mm3 (4.2-5.4)
--- NOTE | 2020-05-04 18:12 | ED.RN ---
horacio in to assess pt. sitter at bedside
[2020-05-04 18:15] LABS: Anion Gap 8 (5-15); BUN 16 mg/dL (7-18); BUN/Creat Ratio 22.6 RATIO (10-20); Calcium,Total 9.2 mg/dL (8.5-10.1); Chloride 104 mmol/L (98-107); Creatinine, Serum 0.71 mg/dL (0.55-1.02); EST Glomerular Filtration Rate 91 mL/min (>60); Est Glom Filt Rate - Afr Amer 110 mL/min (>60); Estimated Creatinine Clearance 79.61 ml/min; Glucose 200 mg/dL (74-106); Potassium 4.2 mmol/L (3.5-5.1); Sodium Level 139 mmol/L (136-145)
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
[2020-05-04 18:22] LABS: Amphetamine Urine VISTA NEGATIVE (<1000 ng/mL); Barbiturate Urine VISTA NEGATIVE (< 200 ng/mL); Benzodiazepine Urine VISTA POSITIVE (< 200 ng/mL); Cocaine Urine VISTA NEGATIVE (< 300 ng/mL); Ecstacy Urine VISTA NEGATIVE (< 500 ng/mL); Methadone Urine VISTA NEGATIVE (< 300 ng/mL); PCP Urine VISTA NEGATIVE (< 25 ng/mL); THC Urine VISTA NEGATIVE (< 50 ng/mL); Vista UDS pH Range 6
[2020-05-04 18:27] LABS: Alcohol, Blood (Medical)-Serum < 3.0 mg/dL
--- NOTE | 2020-05-04 18:46 | CM.ED ---
Social Work Telephone call to Bea Varela. Referral made. Clinical information faxed. Pending evaluation. Donna Michael MSW, BRADY
--- NOTE | 2020-05-04 19:30 | CM.ED ---
Social Work Telephone call from Patience Varela. Patient has been accepted to the [address]. Nurse to nurse report to: [phone]. Updated patient, Dr. Mae and nursing staff. [place] [facility] faxed. Donna Michael MSW, BRADY
[2020-05-04 19:52] VITALS: BP 149/84; PULSE 72; RESP 16; O2SAT 98
== END 2020-05-04 19:59 ==
PROVIDERS: Emergency Provider Emergency Medicine; PCP Internal Medicine
DX: R45.851 Suicidal ideations (principal); F90.9 Attention-deficit hyperactivity disorder, unspecified type; F31.9 Bipolar disorder, unspecified; J44.9 Chronic obstructive pulmonary disease, unspecified; K21.9 Gastro-esophageal reflux disease without esophagitis; I10 Essential (primary) hypertension; E11.9 Type 2 diabetes mellitus without complications; G47.33 Obstructive sleep apnea (adult) (pediatric); Z79.4 Long term (current) use of insulin; Z79.899 Other long term (current) drug therapy
CPT/HCPCS: 80048; 80307; 80320; 85025; 99285; G0480

== ENCOUNTER 2020-06-26 09:57 | Emergency (ER) | payer MEDICAID, SELFPAY ==
[2020-06-26 09:58] VITALS: BP 157/103; PULSE 65; RESP 20; TEMP 36.3; O2SAT 96; BMI 51.3
--- NOTE | 2020-06-26 10:22 | ED.VISSUMM ---
- ER Visit Summary Date of Service: 06/26/20 Chief Complaint: Atraumatic pain in the left hand and numbness to the left small finger and ring finger. History of Present Illness: The patient is a 54 F 3 of insulin-dependent diabetes, COPD, hypertension and prior bilateral carpal tunnel surgery. Patient states for the last 1/2 to 2 weeks she has had pain initially in her pinky now also in her ring finger and some numbness. No weakness. No headache. No fall or trauma. No neck pain. No weakness. No prior history. Does not involve her right upper extremity just the left. Physical Examination: Middle-aged female no acute distress vital signs are stable and afebrile. She does not look septic or toxic. H EENT exam unremarkable. Neck nontender. Full range of motion. Lungs clear to auscultation bilaterally. Heart regular rhythm no murmur. Abdomen soft nontender normal bowel sounds no peritoneal signs. Extremities moves all 4. Neurovascular intact. 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 Normal radial pulses. Her left ring and small finger have normal range of motion she is a open and closed both hands without any difficulty. There is no muscular atrophy. Tapping at the distribution of the ulnar nerve at the medial aspect of her left elbow causes radiation of pain into the hand and the small and ring finger. Test Results: None Emergency Department Course and Treatment: Discussed with patient. She has an appointment to see Dr. Gurpreet Swartz of the [facility] next week. He is the physician I did her carpal tunnel releases. I explained her I think this is an ulnar nerve entrapment issue potentially. Treatment Plan: Anti-inflammatories. Ice. Follow-up with her orthopedic physician next week. Disposition: Discharge Impression: Acute left ring and small finger pain and numbness secondary to ulnar nerve entrapment syndrome This note was generated with [employer] software. It may contain incorrect words, spelling, and punctuation that were not noted in review of the chart prior to signing ED Disposition - Plan for ED Patient: Referrals: Cristal Wolf MD [Primary Care Provider] -
--- NOTE | 2020-06-26 10:26 | ED.DEP ---
ED Disposition - Plan for ED Patient: Disposition: Home or Assisted Living Referrals: Gurpreet Swartz MD [STAFF PHYSICIAN] - Keep Eliazar appointment Additional Instructions: Motrin or Advil for pain and inflammation. Tylenol for pain. Follow-up with your orthopedic surgeon Dr. Gurpreet Swartz with your scheduled appointment next week. Likely this presents as a suspected ulnar nerve entrapment syndrome. Dr. Swartz can go over different treatment options for this.
[2020-06-26] MEDS: HYDROcodone Bitartrate/Apap 5/325 Tablet PO (11:07)
[2020-06-26 11:08] VITALS: RESP 18
== END 2020-06-26 11:08 | disposition home or self-care (01) ==
LOC: ED 10:30
PROVIDERS: Emergency Provider Emergency Medicine; PCP Internal Medicine
DX: G56.22 Lesion of ulnar nerve, left upper limb (principal); E11.9 Type 2 diabetes mellitus without complications; I10 Essential (primary) hypertension; J44.9 Chronic obstructive pulmonary disease, unspecified; Z79.4 Long term (current) use of insulin
CPT/HCPCS: 99283

== ENCOUNTER 2020-07-15 19:34 | Emergency (ER) | payer MEDICAID, SELFPAY ==
[2020-07-15 19:36] VITALS: BP 189/125; BP 192/114; PULSE 65; RESP 17; TEMP 36.8; O2SAT 94; BMI 51.2
--- NOTE | 2020-07-15 20:01 | ED.DCSUM_ITS ---
History of Present Illness Chief Complaint: Overdose Informant: Patient Onset: Today Narrative: Patient presents after taking too many of her tramadol. She states over the past 2 days has had a flare of her fibromyalgia. She took 2 tabs of 50 mg tramadol at 730 this morning. At 5 PM this evening she took 8 tabs all at once. She states she took them because she did not want a be in pain anymore. She denies that this was a suicide attempt. Her son found out she had taken 8 tabs and called 911. Patient denies fever or chills but states she does feel slightly clammy. She does admit to recently taking more tramadol per day than what she should be. - Past Medical History (1) ADHD (attention deficit hyperactivity disorder) Status: Chronic (2) Bipolar disorder Status: Chronic (3) COPD Status: Chronic (4) Diabetes mellitus type 2, uncontrolled, with complications Status: Chronic (5) GERD (gastroesophageal reflux disease) Status: Chronic (6) HTN (hypertension) Status: Chronic (7) Migraines Status: Chronic (8) Obstructive sleep apnea Status: Chronic Past Medical History - Allergies and Home Meds Allergies/Adverse Reactions: Allergies vancomycin Allergy (Severe, Verified 07/15/20 19:44) BURNING RED RASH ON LEGGS cefazolin sodium [From Ancef] Allergy (Verified 07/15/20 19:44) Hives Penicillins Allergy (Verified 07/15/20 19:44) Hives sumatriptan [From Imitrex] Allergy (Verified 07/15/20 19:44) Shortness of breath ziprasidone [From Geodon] Adverse Reaction (Verified 07/15/20 19:44) NEEDS FOLLOW-UP AG X8 DAYS PER PT Primary Care Physician: Cristal Wolf MD [Primary Care Provider] - Prior records reviewed: Yes Surgical History: herniorrhaphy, hysterectomy, - - tubes in ears, knee scopes, dr malik for left anterior leg wound, hernia repair, carpal tunnel surgery bilateral Lives: With Family Smoking Status: Never smoker - Family History Paternal Family History: Family History (Last Reviewed 10/16/18 @ 14:32 by Dana Sweet) Other Hypertension Kidney disease Family History: Reports: Hypertension, Stroke Maternal Family History: Family History (Last Reviewed 10/16/18 @ 14:32 by Dana Sweet) Other Hypertension Kidney disease Family History: Reports: Heart Disease, Hypertension, Stroke Review of Systems General: Denies: Chills, Fever Eyes: Denies: Visual changes - bilaterally ENT: Denies: Bilateral ear pain Cardiovascular: Denies: Chest pain Respiratory: Denies: Dyspnea, Cough Gastrointestinal: Denies: Abdominal pain, Nausea, Vomiting, Diarrhea Musculoskeletal: Reports: Extremity Pain Skin: Denies: Rash Neurological: Denies: Headache Psych: Denies: Suicidal thoughts Hematologic: Denies: Easy bruising, Easy bleeding Allergy: Denies: Uticaria Physical Exam Vital Signs/Narrative: Vital Signs Temp Pulse Resp BP Pulse Ox 07/15/20 19:36 98.2 F 65 17 189/125 H 94 Inital Vital Signs reviewed: Yes General: Well nourished, Well developed Head: Normocephalic ENT: Moist mucous membranes Neck: Supple Cardiovascular: Regular rate, Regular rhythm Respiratory: No distress, CTA bilaterally Abdomen: Soft, Nontender, Normal bowel sounds Extremities: Nontender, - - No focal tenderness over her knees where she complains of pain. No erythema or sign of infection. Chronic left perera wound appears noninfected. Neurological: Alert, Oriented x3, Normal Strength, Normal Sensation Psychological: Normal affect Diagnostic/Tx/Re-eval Laboratory Results 07/15/20 07/15/20 07/15/20 20:00 20:00 20:20 WBC 4.8 RBC 4.72 Hgb 11.9 L Hct 39.3 MCV 83.3 MCH 25.2 L MCHC 30.3 L RDW Std Deviation 50.9 H RDW Coeff of Jocy 17.0 H Plt Count 118 L MPV 9.9 Immature Gran % (Auto) 0.400 Neut % (Auto) 71.1 H Lymph % (Auto) 17.5 L [place] % (Auto) 10.8 H Eos % (Auto) 0.2 Baso % (Auto) 0.0 Absolute Neuts (auto) 3.4 Absolute Lymphs (auto) 0.84 Nucleated RBC % 0 Sodium Potassium Chloride Carbon Dioxide Anion Gap BUN Creatinine Estim Creat Clear Calc Est GFR (MDRD) Af Amer Est GFR (MDRD) Non-Af BUN/Creatinine Ratio Glucose Calcium Urine Color Yellow Urine Clarity Clear Urine pH 6.0 Ur Specific [place] 1.020 Urine Protein 15 H Urine Glucose (UA) Normal Urine Ketones Negative Urine Occult Blood Negative Urine Nitrite Negative Urine Bilirubin Negative Urine Urobilinogen Normal Ur Leukocyte Esterase 25 H Urine RBC 0 SEEN Urine WBC 0-5 SEEN Ur Squamous Epith Cells 0-5 SEEN Calcium Oxalate Crystal 1+ Urine Bacteria 0 SEEN Urine Mucus 0 SEEN Urine Opiates Screen POSITIVE H Urine Methadone Screen NEGATIVE Ur Barbiturates Screen POSITIVE H Ur Phencyclidine Scrn NEGATIVE Ur Amphetamines Screen NEGATIVE U Methamphetamin-MDMA POSITIVE H U Benzodiazepines Scrn POSITIVE H Urine Cocaine Screen NEGATIVE U Cannabinoids Screen NEGATIVE Ur Drug Screen Comment Ethyl Alcohol 07/15/20 07/15/20 20:20 20:20 WBC RBC Hgb Hct MCV MCH MCHC RDW Std Deviation RDW Coeff of Jocy Plt Count MPV Immature Gran % (Auto) Neut % (Auto) Lymph % (Auto) [place] % (Auto) Eos % (Auto) Baso % (Auto) Absolute Neuts (auto) Absolute Lymphs (auto) Nucleated RBC % Sodium 137 Potassium 4.9 Chloride 106 Carbon Dioxide 26.0 Anion Gap 5 BUN 13 Creatinine 0.79 Estim Creat Clear Calc 71.55 Est GFR (MDRD) Af Amer 96 Est GFR (MDRD) Non-Af 79 BUN/Creatinine Ratio 16.4 Glucose 137 H Calcium 8.6 Urine Color Urine Clarity Urine pH Ur Specific [place] Urine Protein Urine Glucose (UA) Urine Ketones Urine Occult Blood Urine Nitrite Urine Bilirubin Urine Urobilinogen Ur Leukocyte Esterase Urine RBC Urine WBC Ur Squamous Epith Cells Calcium Oxalate Crystal Urine Bacteria Urine Mucus Urine Opiates Screen Urine Methadone Screen Ur Barbiturates Screen Ur Phencyclidine Scrn Ur Amphetamines Screen U Methamphetamin-MDMA U Benzodiazepines Scrn Urine Cocaine Screen U Cannabinoids Screen Ur Drug Screen Comment Ethyl Alcohol < 3.0 - Medical Decision Making Patient was observed for a period of 6 hours after her last ingestion. She is remained hemodynamically stable. Blood pressures remained elevated. She is due for her evening blood pressure medication and will take this when she gets home tonight. She will be given 25 mg of Vistaril at this time to help with anxiety. She continues to deny that this was a suicide attempt. ED Disposition - Plan for ED Patient: Disposition: Home or Assisted Living Diagnosis: Fibromyalgia, Overdose Instructions: ED Accidental Ingestion Nontoxic Adult, Managing Fibromyalgia Prescriptions: Prednisone [Deltasone] 40 mg PO DAILY #10 tab Transmission Status: Pending to [id number] Referrals: Cristal Wolf MD [Primary Care Provider] - 5-7 Days
[2020-07-15 20:33] VITALS: PULSE 63; RESP 17
[2020-07-15 20:35] LABS: Bacteria 0 SEEN /hpf (None Seen); Mucous, Urine 0 SEEN /hpf (<or=2+); Red Blood Cells-Urine 0 SEEN /hpf (0-5)
[2020-07-15 20:47] LABS: Absolute Lymphocyte Count 0.84 X10^3/uL (0.83-4.51); Absolute Neutrophil Count 3.4 X10^3/uL (2.0-7.7); Eosinophil# 0.01 X10^3/uL; Eosinophils% 0.2 % (0-5); Hematocrit 39.3 % (37-47); Hemoglobin 11.9 g/dL (12.0-15.0); Lymphocyte # 0.84 X10^3/ul (4.0); Lymphocyte % 17.5 % (19-41); Mean Corp Hgb Conc 30.3 g/dL (32-36); Mean Corpuscular Hgb 25.2 pg (27.0-32.0); Mean Corpuscular Volume 83.3 fL (81-99); Mean Platelet Vol. 9.9 fl (6.2-12.0); Monocyte# 0.52 X10^3/uL; Monocyte% 10.8 % (0-10); NRBC Flagged by Analyzer 0 % (0-5); Neutrophil # 3.42 X10^3/uL (2.7-7.7); Neutrophil % 71.1 % (47-70); Platelet Count 118 K/mm3 (150-450); RBC Distribution Width SD 50.9 fl (35.1-43.9); Red Blood Count 4.72 M/mm3 (4.2-5.4); White Blood Count 4.8 K/mm3 (4.4-11.0)
[2020-07-15] MEDS: MethylPREDNISolone 125 MG/2 ML Vial IV (20:54)
[2020-07-15 20:56] LABS: Color, Urine Yellow (Yellow); Glucose, Dipstick Normal (Normal); Ketone-Dipstick Negative (Negative); Leukocyte Esterase-Dipstick 25 /ul (Negative); Nitrite-Dipstick Negative (Negative); Occult Blood-Urine Negative /ul (Negative); Protein-Dipstick 15 mg/dl (Negative); Urine Bilirubin Dipstick Negative (Negative); Urine Clarity Clear (Clear); Urine Urobilinogen Normal (Normal)
[2020-07-15 21:06] LABS: Calcium Oxalate Crystals Ur 1+ /hpf (<or=2+); Squamous Epithelial Cells - UA 0-5 SEEN /hpf (5-10); White Blood Cells 0-5 SEEN /hpf (0-5)
[2020-07-15 21:09] LABS: Anion Gap 5 (5-15); BUN 13 mg/dL (7-18); BUN/Creat Ratio 16.4 RATIO (10-20); Calcium,Total 8.6 mg/dL (8.5-10.1); Chloride 106 mmol/L (98-107); Creatinine, Serum 0.79 mg/dL (0.55-1.02); EST Glomerular Filtration Rate 79 mL/min (>60); Est Glom Filt Rate - Afr Amer 96 mL/min (>60); Estimated Creatinine Clearance 71.55 ml/min; Glucose 137 mg/dL (74-106); Potassium 4.9 mmol/L (3.5-5.1); Sodium Level 137 mmol/L (136-145)
[2020-07-15 21:09] LABS: Amphetamine Urine VISTA NEGATIVE (<1000 ng/mL); Barbiturate Urine VISTA POSITIVE (< 200 ng/mL); Benzodiazepine Urine VISTA POSITIVE (< 200 ng/mL); Cocaine Urine VISTA NEGATIVE (< 300 ng/mL); Ecstacy Urine VISTA POSITIVE (< 500 ng/mL); Methadone Urine VISTA NEGATIVE (< 300 ng/mL); PCP Urine VISTA NEGATIVE (< 25 ng/mL); THC Urine VISTA NEGATIVE (< 50 ng/mL); Vista UDS pH Range 6
[2020-07-15 21:17] LABS: Alcohol, Blood (Medical)-Serum < 3.0 mg/dL
[2020-07-15 21:53] VITALS: BP 176/88; PULSE 60; RESP 16; O2SAT 94
[2020-07-15] MEDS: hydrOXYzine PAM 25 MG Capsule PO (22:49)
[2020-07-15 23:00] VITALS: BP 184/103; PULSE 64; RESP 16; O2SAT 97
--- NOTE | 2020-07-15 23:09 | ED.RN ---
pt has not had her bp medications and will take once she is back home. pt verbalized adequate understanding.
== END 2020-07-15 23:12 | disposition home or self-care (01) ==
PROVIDERS: Emergency Provider Emergency Medicine; PCP Internal Medicine
DX: T40.4X1A Poisoning by other synthetic narcotics, accidental (unintentional), initial encounter (principal); E11.9 Type 2 diabetes mellitus without complications; F31.9 Bipolar disorder, unspecified; F90.9 Attention-deficit hyperactivity disorder, unspecified type; G47.33 Obstructive sleep apnea (adult) (pediatric); I10 Essential (primary) hypertension; J44.9 Chronic obstructive pulmonary disease, unspecified; K21.9 Gastro-esophageal reflux disease without esophagitis; M79.7 Fibromyalgia; Z79.899 Other long term (current) drug therapy; Z79.4 Long term (current) use of insulin
CPT/HCPCS: 80048; 80307; 80320; 81001; 85025; 96374; 99285; A4216; G0480

== ENCOUNTER 2020-07-16 07:04 | Observation (INO) | payer MEDICAID, SELFPAY ==
[2020-07-15 19:36] VITALS: BMI 51.2
[2020-07-16] VITALS (24 sets, daily range): BP systolic 139–194; BP diastolic 74–117; PULSE 51–98; RESP 12–20; TEMP 36.1–36.9; O2SAT 94–99; BMI 49.9; BMI 48.9
--- NOTE | 2020-07-16 07:18 | EKG12_ITS ---
Test Reason : Blood Pressure : / mmHG Vent. Rate : 055 BPM Atrial Rate : 055 BPM P-R Int : 182 ms QRS Dur : 100 ms QT Int : 456 ms P-R-T Axes : 039 -16 -06 degrees QTc Int : 436 ms Sinus bradycardia Otherwise normal ECG Confirmed by BAN RIZO, AUGUSTINA ([id number]), video tape editor KARMEN ORTIZ ([id number]) on 07/17/2020 11:31:35 A M Referred By: KOLYB Confirmed By:MARANDA CEVALLOS MD
--- NOTE | 2020-07-16 07:18 | RAD_ITS ---
STUDY: X-RAY CHEST REASON FOR EXAM: Female, 54 years old. CP/burning sensation TECHNIQUE: Single AP portable view of the chest. COMPARISON: Comparison is made with prior study dated 08/04/2019. FINDINGS: Stable elevation of the right hemidiaphragm with persistent increased markings at the right lung base suggestive of atelectasis. There is no demonstrated pleural abnormality. Normal size heart. Normal mediastinum and keli. Normal visualized pulmonary arteries. Normal visualized aortic arch and descending thoracic aorta. There are diffuse degenerative changes of the visualized thoracic spine. Normal visualized ribs, clavicles, and shoulders. There is no demonstrated abnormality of the visualized soft tissue structures of the upper abdomen. RAD/Chest 1 View (Portable) IMPRESSION: Stable elevation of the right hemidiaphragm with mild increased linear markings at the right lung base suggestive of atelectasis. Electronically Signed: Kevin Gaxiola, at 8:08 EDT , Service support ,
--- NOTE | 2020-07-16 07:44 | ED.DCSUM_ITS ---
History of Present Illness Chief Complaint: Chest Other Informant: Patient Onset: Today, Days Current Severity: Mild Narrative: The patient presents with a burning sensation involving her entire body, whole- body pain, related to fibromyalgia, sense of nervousness and anxiety that she has had for a few days. She was seen just a few hours ago in the emergency room for the above as she had taken 8 tramadol tablets to control her pain her ED ev aluation was unremarkable she was discharged home with family she reports she got home for about 1 hour walk around her home and again began having exacerbation of the whole body pain and a burning sensation involving her entire body. She indicates that the burning sensation also involves her chest which it has done prior ED visit as well She is quite sure that the symptoms are recurrence of the symptoms she had earlier, she declines to say she is having chest pain just burning in her whole body including her chest. She has no history of OK PE or DVT no fever no cough no coronavirus issues normal bowel bladder habits, she decayed she is able to do all of her daily activities She has had these flareups before and the symptoms before etiology are related to fibromyalgia or anxiety by her reports Her vital signs are unremarkable she is resting comfortably in bed no distress Past Medical History - Allergies and Home Meds Allergies/Adverse Reactions: Allergies vancomycin Allergy (Severe, Verified 07/16/20 07:07) BURNING RED RASH ON LEGGS cefazolin sodium [From Ancef] Allergy (Verified 07/16/20 07:07) Hives Penicillins Allergy (Verified 07/16/20 07:07) Hives sumatriptan [From Imitrex] Allergy (Verified 07/16/20 07:07) Shortness of breath ziprasidone [From Geodon] Adverse Reaction (Verified 07/16/20 07:07) NEEDS FOLLOW-UP AG X8 DAYS PER PT Primary Care Physician: Cristal Wolf MD [Primary Care Provider] - Past Medical History: - - Includes fibromyalgia and anxiety and the above Surgical History: herniorrhaphy, hysterectomy, - - tubes in ears, knee scopes, dr malik for left anterior leg wound, hernia repair, carpal tunnel surgery bilateral Smoking Status: Never smoker - Family History Paternal Family History: Family History (Last Reviewed 10/16/18 @ 14:32 by Dana Sweet) Other Hypertension Kidney disease Family History: Reports: Hypertension, Stroke Maternal Family History: Family History (Last Reviewed 10/16/18 @ 14:32 by Dana Sweet) Other Hypertension Kidney disease Family History: Reports: Heart Disease, Hypertension, Stroke Review of Systems General: Denies: Chills, Fever, Sweats Eyes: Denies: Visual changes - bilaterally, Diplopia ENT: Denies: Rhinorrhea, Sore throat Cardiovascular: Reports: Chest pain. Denies: Palpitations Respiratory: Denies: Dyspnea, Cough, Dyspnea on exertion Gastrointestinal: Denies: Abdominal pain, Nausea, Vomiting, Diarrhea, Melena, Hematochezia Genitourinary: Denies: Dysuria, Hematuria, Frequency Musculoskeletal: Denies: Back pain, Extremity Pain Skin: Denies: Rash, Wounds Neurological: Denies: Headache, Weakness, Numbness Physical Exam Vital Signs/Narrative: Vital Signs Temp Pulse Resp BP Pulse Ox 07/16/20 07:05 97.9 F 65 18 142/117 H 98 General: Well nourished, Well developed, No Acute Distress Head: Normocephalic, Atraumatic Eyes: Perrl, EOMI ENT: Moist mucous membranes, No rhinorrhea Neck: Supple, Nontender Cardiovascular: Regular rate, Regular rhythm, No murmurs Respiratory: No distress, CTA bilaterally, Chest nontender Abdomen: Soft, Nontender, Nondistended, Normal bowel sounds Back: Nontender, Normal Inspection Extremities: Nontender, No edema Skin: Normal color, No rash, - - He has chronic changes to the lower extremities related to edema and other issues none are new no pain Neurological: Alert, Oriented x3, Cranial nerves II-XII grossly intact, Normal Strength, Normal Sensation Psychological: Normal affect, Normal Mood Diagnostic/Tx/Re-eval - Medical Decision Making Given all of the above and her complaints EKG is obtained that shows a sinus rhythm no acute injury pattern nonspecific changes rate 55 sinus bradycardia, she underwent ED screening evaluation her screening labs were generally unremarkable troponin returned elevated at 0.5, prior troponins negative, chest x-ray showed nonspecific changes, given all the above we have contacted the hospitalist arrange for admission for further management Admit stable Final impression burning chest pain, abnormal troponin, whole body pain, exacerbation of fibromyalgia ED Disposition - Plan for ED Patient: Diagnosis: Chest pain Referrals: Cristal Wolf MD [Primary Care Provider] -
[2020-07-16] MEDS: LORazepam 1 MG Tablet PO (07:48)
[2020-07-16] MEDS: Ondansetron ODT 4 MG Tablet PO (07:56)
[2020-07-16 08:00] LABS: Anion Gap 6 (5-15); BUN 10 mg/dL (7-18); BUN/Creat Ratio 12.2 RATIO (10-20); Calcium,Total 9.2 mg/dL (8.5-10.1); Chloride 102 mmol/L (98-107); Creatinine, Serum 0.82 mg/dL (0.55-1.02); EST Glomerular Filtration Rate 76 mL/min (>60); Est Glom Filt Rate - Afr Amer 92 mL/min (>60); Estimated Creatinine Clearance 68.93 ml/min; Glucose 195 mg/dL (74-106); Potassium 4.8 mmol/L (3.5-5.1); Sodium Level 135 mmol/L (136-145)
--- NOTE | 2020-07-16 08:14 | ED.RN ---
LAB REPORTED BLOOD HEMOLYZED. REQUESTED LAB ATTEMPT TO DRAW PT, INFORMED THAT TECH WOULD BE UP TO DRAW.
[2020-07-16 08:25] LABS: Absolute Lymphocyte Count 0.79 X10^3/uL (0.83-4.51); Absolute Neutrophil Count 5.8 X10^3/uL (2.0-7.7); Hematocrit 37.2 % (37-47); Hemoglobin 11.8 g/dL (12.0-15.0); Lymphocyte # 0.79 X10^3/ul (4.0); Lymphocyte % 11.1 % (19-41); Mean Corp Hgb Conc 31.7 g/dL (32-36); Mean Corpuscular Hgb 25.3 pg (27.0-32.0); Mean Corpuscular Volume 79.8 fL (81-99); Mean Platelet Vol. 9.4 fl (6.2-12.0); Monocyte# 0.47 X10^3/uL; Monocyte% 6.6 % (0-10); NRBC Flagged by Analyzer 0 % (0-5); Neutrophil # 5.82 X10^3/uL (2.7-7.7); Neutrophil % 81.6 % (47-70); Platelet Count 176 K/mm3 (150-450); RBC Distribution Width CV 16.4 % (11.6-14.6); RBC Distribution Width SD 47.1 fl (35.1-43.9); Red Blood Count 4.66 M/mm3 (4.2-5.4); White Blood Count 7.1 K/mm3 (4.4-11.0)
[2020-07-16] MEDS: Aspirin 81 MG TAB.CHEW 324 MG PO (09:39)
--- NOTE | 2020-07-16 09:48 | CASEMGMT ---
According to the [facility] website, the following are in-network tertiary facilities: [facility], [facility], [facility], [facility], [facility], [facility], [facility], and . Emily BOLANOS CM
--- NOTE | 2020-07-16 09:54 | PCM.HP.STD ---
History of Present Illness Date of Admission: 07/16/20 Chief Complaint: CP/burning The patient is a 54 year old F who has multiple medical issues presented to the ED today c/o a burning sensation all over her body. She states that she has been feeling this way for a few days and in fact presented yesterday 2/2 accidental OD of Ultram because she was trying to find something to help her pain. She does states that she has burning in her chest that radiates through to her back and is associated with nausea and diaphoresis. She has never had this before. She states that the chest 'burning is constant but does wax and wane in intensity. during her workup in the ED her troponin was noted to be elevated at 0.524. VSS. She has had w/u for CP in the past and never had an elevated troponin. She had a stress test that was negative in 07/2019. Her EKG shows no changes associated with acute ischemia. She is a never smoker, has DM, HTN, no recent chol checks and is MO. She had a cardiac cath in 2011 in [place] but is unable to recall the results but knows she didn't get stents. With a neg stress test within the last year and troponin elevation we will have cardiology see her and admit her to PCU Past Medical History Past Medical History (Chronic Problems): Chronic Problems (Last Reviewed 10/16/18 @ 14:32 by Dana Sweet) HTN (hypertension) (Chronic) Diabetes mellitus type 2, uncontrolled, with complications (Chronic) Pain syndrome, chronic (Chronic) Bipolar disorder (Chronic) Migraines (Chronic) Obstructive sleep apnea (Chronic) Stasis dermatitis of both legs (Chronic) Venous insufficiency of both lower extremities (Chronic) Super obese (Chronic) ADHD (attention deficit hyperactivity disorder) (Chronic) Benign hypertension (Chronic) Type II diabetes mellitus (Chronic) GERD (gastroesophageal reflux disease) (Chronic) COPD (Chronic) Open wound of left lower extremity (Chronic) Medical History: Medical History (Last Reviewed 07/16/20 @ 10:[address] Shauna Jorgensen DO) Arthritis M19.90 Asthma J45.909 Back pain M54.9 COPD (chronic obstructive pulmonary disease) J44.9 Diabetes E11.9 Fatigue R53.83 Hemorrhoids K64.9 Knee pain M25.569 Migraines G43.909 HTN (hypertension) I10 Allergies vancomycin Allergy (Severe, Verified 07/16/20 07:07) BURNING RED RASH ON LEGGS cefazolin sodium [From Ancef] Allergy (Verified 07/16/20 07:07) Hives Penicillins Allergy (Verified 07/16/20 07:07) Hives sumatriptan [From Imitrex] Allergy (Verified 07/16/20 07:07) Shortness of breath ziprasidone [From Geodon] Adverse Reaction (Verified 07/16/20 07:07) NEEDS FOLLOW-UP AG X8 DAYS PER PT Home Medications: Ambulatory Orders Medication Instructions Recorded Buspirone HCl 20 mg PO TID 03/05/17 Nadolol [Corgard (Beta Torin)] 160 mg PO QHS 03/05/17 Oxybutynin Chloride [Ditropan Xl] 15 mg PO QHS 03/05/17 Quetiapine Fumarate [Quetiapine 300 mg PO QHS 03/05/17 Fumarate ER] buPROPion XL [Wellbutrin Xl] 450 mg PO DAILY 03/05/17 Lisinopril 5 mg PO BID 03/20/17 omeprazole 10 mg capsule,delayed 20 mg PO DAILY 02/18/18 release valacyclovir 1 gram tablet 1,000 mg PO DAILY 02/18/18 Diazepam [Valium] 10 mg PO BID PRN PRN 03/11/18 Orphenadrine [Norflex] 100 mg PO BID PRN 03/11/18 traMADol [Ultram] 100 mg PO Q6H PRN PRN 03/11/18 Albuterol Inhaler [Ventolin Hfa] 2 puff INHALATION Q4H PRN PRN 05/29/18 glimepiride 2 mg tablet 4 mg PO BID tab 09/20/18 Insulin Glargine,Hum.rec.anlog 34 unit SUBCUT DAILY 10/07/18 [Basaglar Kwikpen U-100] Rizatriptan Benzoate [Rizatriptan] 5 mg PO DAILY PRN 10/07/18 Pregabalin [Lyrica] 75 mg PO TID 10/14/18 Insulin Lispro [Humalog KwikPen] 0 - 100 unit SQ TIDCM 12/05/18 Liraglutide [Victoza 2-Konrad] 0.8 mg SQ DAILY 12/05/18 Dicyclomine HCl [Bentyl] 20 mg PO TIDAC #20 cap 07/28/19 Escitalopram Oxalate [Lexapro] 20 mg PO DAILY 08/04/19 Fluticasone 0.05% [Flonase Nasal 2 spray NASAL DAILY 08/04/19 [place]] Primidone [Mysoline] 100 mg PO 4X/DAY 08/04/19 Ondansetron [Zofran Odt] 4 mg PO Q8H PRN PRN 09/22/19 Topiramate 50 mg PO BID 10/09/19 Paliperidone [Invega] 6 mg PO DAILY 03/16/20 Prednisone [Deltasone] 40 mg PO DAILY #10 tab 07/15/20 Tizanidine HCl [Zanaflex] 4 mg PO PRN PRN 07/15/20 Surgical History: Surgical History (Last Reviewed 07/16/20 @ 10:[address] 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 Shauna Jorgensen DO) Other Hypertension Kidney disease History Items: Heart Disease, Hypertension, Stroke Paternal Family History: Family History (Last Reviewed 07/16/20 @ 10:[address] Shauna Jorgensen DO) Other Hypertension Kidney disease History Items: Hypertension, Stroke Review of Systems Constitutional: Reports: Weakness, Fatigue. Denies: Anorexia, Chills, Fever, Night Sweats, Malaise, Weight Change Eyes: Denies: Blurred vision, Cataracts, Conjunctivae Inflammation, Double vision, Drainage, Eyelid Inflammation, Pain, Redness, Vision Change HEENT: Reports: Post Nasal Drip. Denies: Difficulty Hearing, Difficulty Swallowing, Ear Pain, Eye Pain, Nasal bleeding, Nasal Congestion, Sinus Congestion, Sinus Drainage, Sore Throat, Visual Changes Cardiovascular: Reports: Chest Pain, Chest Pressure, Edema - chronic. Denies: Claudication, Chest Tightness, Heaviness, Light Headedness, Orthopnea, Syncope Respiratory: Reports: Shortness of breath upon exertion. Denies: Cough, Hemoptysis, Pleuritic Pain, Shortness of Breath, Shortness of breath at rest, Sputum production, Wheezing Gastrointestinal: Reports: Nausea. Denies: Abdominal Pain, Constipation, Diarrhea, Dyspepsia, Hematemesis, Hematochezia, Melena, Vomiting Genitourinary: Denies: Dysuria, Frequency, Hematuria, Hesitancy, Incontinence, Nocturia, Retention, Urgency Gynecological: Denies: Breast symptoms, Excessively long or heavy periods, Sexual concerns Musculoskeletal: Reports: Back Pain, Joint Pain, Joint stiffness, Joint Tenderness, Muscle pain, Neck Pain. Denies: Arm Pain, Foot Pain, Hand Pain, Joint swelling, Leg Pain, Shoulder Pain Skin: Reports: Lesions - L Leg wound. Denies: Dryness, Jaundice Neurological: Denies: Balance problems, Blurred vision, Double vision, Change in Speech, Slurred speech, Confusion, Difficulty swallowing, Focal weakness, Headaches, Incoordination, Numbness, Tingling, Tremor, Seizures Psychiatric: Reports: Anxiety, Depression. Denies: Suicidal Ideations Endocrine: Denies: Change in Body Habitus, Heat/ Cold Intolerance, Polydipsia, Polyuria Hematologic/ Lymphatic: Denies: Adenopathy, Anemia, Easy Bruising, Easy Bleeding, Petechiae, Purpura VTE Information - Inpt Only VTE Present on Admission: Yes VTE Mechan Device Prophylaxis: SCD's VTE Pharm Prophylaxis ordered?: Yes Patient Problems: Active and Suspected Problems (Last Reviewed 10/16/18 @ 14:32 by Dana Sweet) Chest pain (Acute) - Physical Exam Vitals/I&O's: Vital Signs Temp Pulse Resp BP Pulse Ox 97.8 F 65 18 170/114 H 99 07/16/20 09:35 07/16/20 09:35 07/16/20 09:35 07/16/20 09:35 07/16/20 09:35 Weight: 136.1 kg Body Mass Index (BMI) 49.9 Finger Stick Blood Glucose 178 General: Alert, Oriented x3, Cooperative, No apparent distress, Well developed, Well nourished, - - Middle aged [place] white female, lying in bed, son at bedside HEENT: Atraumatic, PERRLA, EOMI, Normocephalic, EAC Clear Oral: Moist Mucosa, No Gingival or Mucosal Lesions/ Ulcerations, - - dentition is poor, no thrush, mallampati 2 Neck: Supple, No JVD, Negative Carotid Bruits, Negative Hepatojugular Reflux, No Nodes, No Nuchal Rigidity, Trachea Midline, Thyroid Normal Size and Texture Lungs: Clear to auscultation, Normal air movement, No rhonchi, No wheeze, No rales, Diminished, Rales, Rhonchi Cardiovascular: Regular rate, Regular Rhythm, Normal S1, Normal S2, No murmurs, No Ectopic Activity, No rub noted, No Gallop Abdomen: Bowel Sounds Present, Soft, Non Tender, Non-Distended, No Hepato-splenomegaly, Obese, No hernias noted Extremities: No clubbing, No cyanosis, Capillary Refill Less than 3 Seconds, Edema - trace B Le, Peripheral Pulses Normal Skin: No rashes, Ulcer/ Wound - L ant distal leg, - - skin changes c/w venous stasis at B LE Musculoskeletal: No Muscle Wasting, Arthritic Changes, Tenderness - diffusely Lymphatic: No Cervical, Supraclavicular, or Inguinal Adenopathy Neurological: Cranial nerves II-XII grossly intact, Deep Tendon Reflexes 2+/4 and Symmetrical, Neuro grossly intact, Muscle tone normal, Sensory exam intact to light touch and pain, Coordination normal Psych/Mental Status: Appropriate, Flat Affect, - - A&O x 4 Laboratory Results 07/16/20 07:33: WBC Cancelled, Corrected WBC Cancelled, RBC Cancelled, Hgb Cancelled, Hct Cancelled, MCV Cancelled, MCH Cancelled, MCHC Cancelled, RDW Std Deviation Cancelled, RDW Coeff of Jocy Cancelled, Plt Count Cancelled, MPV Cancelled, Immature Gran % (Auto) Cancelled, Neut % (Auto) Cancelled, Lymph % (Auto) Cancelled, Cass % (Auto) Cancelled, Eos % (Auto) Cancelled, Baso % (Auto) Cancelled, Absolute Neuts (auto) Cancelled, Absolute Lymphs (auto) Cancelled, Total Counted Cancelled, Neutrophils % (Manual) Cancelled, Band Neutrophils % Cancelled, Lymphocytes % (Manual) Cancelled, Monocytes % (Manual) Cancelled, Eosinophils % (Manual) Cancelled, Basophils % (Manual) Cancelled, Metamyelocytes % Cancelled, Myelocytes % Cancelled, Promyelocytes % Cancelled, Blast Cells % Cancelled, Plasma Cell % (Manual) Cancelled, Other Cells % Cancelled, Nucleated RBC % Cancelled, Nucleated RBCs/100 WBC Cancelled, Differential Comment Cancelled, Diff Path Review Cancelled, Hypersegmented Neuts Cancelled, Atypical Lymphocytes Cancelled, Reactive Lymphocytes Cancelled, Smudge Cells Cancelled, Toxic Granulation Cancelled, Toxic Vacuolation Cancelled, Dohle Bodies Cancelled, Elisha Rods Cancelled, Platelet Estimate Cancelled, Plt Morphology Comment Cancelled, RBC Morphology Cancelled, Polychromasia Cancelled, Hypochromasia Cancelled, Poikilocytosis Cancelled, Basophilic Stippling Cancelled, Anisocytosis Cancelled, Microcytosis Cancelled, Macrocytosis Cancelled, Spherocytes Cancelled, Sickle Cells Cancelled, Target Cells Cancelled, Tear Drop Cells Cancelled, Ovalocytes Cancelled, Stomatocytes Cancelled, Batista-Wagram Bodies Cancelled, Kassy Cells Cancelled, Bite Cells Cancelled, Crenated Cell Cancelled, Acanthocytes (Spur) Cancelled, Rouleaux Cancelled, Schistocytes Cancelled 07/16/20 07:33: Sodium 135 L, Potassium 4.8, Chloride 102, Carbon Dioxide 27.0, Anion Gap 6, BUN 10, Creatinine 0.82, Estim Creat Clear Calc 68.93, Est GFR (MDRD) Af Amer 92, Est GFR (MDRD) Non-Af 76, BUN/Creatinine Ratio 12.2, Glucose 195 H, Calcium 9.2, Troponin I 0.524 H 07/16/20 08:10: WBC 7.1, RBC 4.66, Hgb 11.8 L, Hct 37.2, MCV 79.8 L, MCH 25.3 L, MCHC 31.7 L, RDW Std Deviation 47.1 H, RDW Coeff of Jocy 16.4 H, Plt Count 176, MPV 9.4, Immature Gran % (Auto) 0.700, Neut % (Auto) 81.6 H, Lymph % (Auto) 11.1 L, Cass % (Auto) 6.6, Eos % (Auto) 0.0, Baso % (Auto) 0.0, Absolute Neuts (auto) 5.8, Absolute Lymphs (auto) 0.79 L, Nucleated RBC % 0 Current Medications Bupropion HCl (Wellbutrin Xl) 450 mg PO DAILY [facility] Dicyclomine HCl (Bentyl) 20 mg PO TIDAC [facility] Escitalopram Oxalate (Lexapro) 20 mg PO DAILY [facility] Fluticasone Propionate (Flonase Nasal [place]) 2 spray NASAL DAILY [facility] Insulin Glargine (Lantus (Bkc)) 20 units SC DAILY [facility] Lisinopril (Zestril) 5 mg PO BID [facility] Non-Formulary Medication (Buspirone Hcl) 20 mg PO TID [facility] Non-Formulary Medication (Diazepam [Valium]) 10 mg PO BID PRN PRN PRN Reason: ANXIETY Non-Formulary Medication (Omeprazole) 20 mg PO DAILY [facility] Non-Formulary Medication (Oxybutynin Chloride [Ditropan Xl]) 15 mg PO QHS [facility] Non-Formulary Medication (Quetiapine Fumarate [Quetiapine Fumarate Er]) 300 mg PO QHS [facility] Non-Formulary Medication (Tizanidine Hcl [Zanaflex]) 4 mg PO PRN PRN PRN Reason: MUSCLE SPASM Non-Formulary Medication (Valacyclovir Hcl [Valacyclovir]) 1,000 mg PO DAILY [facility] Orphenadrine Citrate (Norflex Er) 100 mg PO BID PRN PRN Reason: muscles Paliperidone (Invega) 6 mg PO DAILY [facility] Prednisone () 40 mg PO DAILY [facility] Pregabalin (Lyrica) 75 mg PO TID [facility] Primidone (Mysoline) 100 mg PO 4X/DAY [facility] Topiramate (Topamax) 50 mg PO BID [facility] Assessment/Plan All Active Problems (Last Reviewed 10/16/18 @ 14:32 by Dana Sweet) Chest pain (Acute) Calculi, ureter (Resolved) CP with troponin elevation -admit to PCU -pt with a normal Stress test 1 yr ago -initial troponin is 0.524 -cycle and if trends up will start heparin ggt -prn nitro -prn morphine -BB/Statin/ACEI/ASA -Initial EKG is without ST-T wave changes -will consult cardiology with troponin elevation and norm stress test 1 yr ago -will leave NPO for now Chronic Anemia -mild -stable DM-2 uncontrolled -last A1c in computer is 7.7 but this is from 2017 -check am A1c -Lantus 20 u since NPO -SSI q 6 while NPO -q 6 hr checks -hold home oral meds Mild Hyponatremia -135 -repeat in am HTN -continue BB -continue ACEI GERD -continue PPI ABRAM -CPAP at hs Migraines -hold home meds with CP workup COPD -PRN nebs ADHD/Bipolar -continue Home meds Chronic Pain/Fibromyalgia -prn meds for pain -continue home meds DVT Prophylaxis -Lovenox 40 BID Code Status -Full Inpatient E&M: 12858 Init Hosp L3
--- NOTE | 2020-07-16 10:16 | EKG12_ITS ---
Test Reason : Blood Pressure : / mmHG Vent. Rate : 055 BPM Atrial Rate : 055 BPM P-R Int : 174 ms QRS Dur : 102 ms QT Int : 462 ms P-R-T Axes : 034 -11 -03 degrees QTc Int : 441 ms Sinus bradycardia Nonspecific ST and T wave abnormality Abnormal ECG When compared with ECG of 16-JUL-2020 07:51, MANUAL COMPARISON REQUIRED, DATA IS UNCONFIRMED Confirmed by BAN RIZO, AUGUSTINA ([id number]), film editor supervisor KARMEN ORTIZ ([id number]) on 07/20/2020 1:48:19 PM Referred By: NACHO Confirmed By:MARANDA CEVALLOS MD
[2020-07-16] MEDS: Nitroglycerin (INPATIENT USE) 0.4 MG TAB.SUBL SUBLINGUAL ×2 (11:30→11:46)
[2020-07-16] MEDS: 0.9% Normal Saline 1,000 ML 70 ML IV (11:34)
[2020-07-16] MEDS: Fluticasone 0.05% 1 SPRAY NASAL.SRY 2 SPRAY NASAL (11:48)
[2020-07-16] MEDS: buPROPion (XL) 150 MG TABLET.XL PO (11:49)
[2020-07-16] MEDS: Dicyclomine 10 MG Capsule 20 MG PO ×2 (11:50→16:16)
[2020-07-16] MEDS: buPROPion (XL) 300 MG TABLET.XL PO (11:50)
[2020-07-16] MEDS: Escitalopram Oxalate 10 MG Tablet 20 MG PO (11:52)
[2020-07-16] MEDS: Topiramate 50 MG Tablet PO ×2 (11:52→21:07)
[2020-07-16] MEDS: Paliperidone 6 MG Tablet PO (11:52)
[2020-07-16] MEDS: Metoprolol Tartrate 25 MG Tablet PO ×2 (11:56→21:06)
[2020-07-16] MEDS: Lisinopril 10 MG Tablet PO (11:59)
[2020-07-16 12:41] LABS: Bedside Glucose 149 mg/dL (70-110)
--- NOTE | 2020-07-16 12:45 | NURSING ---
patient informed about cardiac cath prepped watching video taken down for cath
--- NOTE | 2020-07-16 12:48 | NURSING ---
report called to ernesto in [facility]
--- NOTE | 2020-07-16 13:47 | ECHOCS_ITS ---
Version 2 Reason For Study: Chest Pain Procedure This was a 2D Doppler, Color Flow transthoracic echocardiogram. Contrast injection was performed. Exam performed portable in patient room. Left Ventricle Normal LV size. The estimated ejection fraction is 60 %. No evidence for diastolic dysfunction. Infero-Basal: Aneurysmal. Right Ventricle Normal RV size. Normal systolic function. Atria Normal left atrium. Normal right atrium. No doppler evidence for ASD. Mitral Valve There is no mitral valve stenosis. Trivial mitral valve insufficiency. Tricuspid Valve There is no tricuspid stenosis. Mild tricuspid valve insufficiency. Pulmonary artery systolic pressure is 30-35 mmHg. Aortic Valve Trisinus/trileaflet aortic valve. There is no aortic stenosis. No aortic valve insufficiency. Pulmonic Valve There is no pulmonic valvular stenosis. No pulmonic valve insufficiency. Great Vessels Normal aortic root. Pericardium/Pleural No pericardial effusion. Medication Diluted definity 3ml given slow IV push to enhance endocardial definition. MMode/2D Measurements & Calculations LVIDd: 5.3 cm IVSd: 1.3 cm Ao root diam: 3.2 cm LVIDs: 3.5 cm LVPWd: 1.2 cm RVDd: 3.4 cm FS: 34.3 % LAV(MOD-bp): 76.5 ml LVAd ap4: 35.0 cm2 SV(MOD-sp4): 99.6 ml LAV(MOD-bp) Indexed: 32.8 ml/m2 EDV(MOD-sp4): 131.4 ml LAV(MOD-sp2): 71.6 ml EDV(sp4-el): 133.8 ml LAV(MOD-sp4): 82.8 ml LVAs ap4: 15.3 cm2 ESV(MOD-sp4): 31.8 ml ESV(sp4-el): 30.5 ml EF(MOD-sp4): 75.8 % EF(sp4-el): 77.2 % SV(sp4-el): 103.3 ml LA A4 area: 25.3 cm2 LA dimension(2D): 4.1 cm RA A4 area: 14.8 cm2 Doppler Measurements & Calculations MV E max anthony: 93.5 cm/sec Lat Peak E' Anthony: 7.6 cm/sec Med Peak E' Anthony: 5.9 cm/sec MV A max anthony: 99.0 cm/sec E/E' lat: 12.3 E/E' med: 15.9 MV E/A: 0.94 Ao V2 max: 155.3 cm/sec LV V1 max: 121.7 cm/sec PA V2 max: 89.3 cm/sec Ao max P.6 mmHg LV V1 max P.9 mmHg Ao V2 mean: 98.4 cm/sec Ao mean P.5 mmHg Ao V2 VTI: 31.4 cm TR max anthony: 267.2 cm/sec TR max P.6 mmHg Interpretation Summary The estimated ejection fraction is 60 %. No evidence for diastolic dysfunction. Trivial mitral valve insufficiency. Mild tricuspid valve insufficiency. Infero-Basal: Aneurysmal. Ordering Physician: Chaim^Clarita^^^ Referring Physician: Cristal Wolf Performed By: Siomara Ruth, RDCS, RVT
--- NOTE | 2020-07-16 13:54 | CON.PCM_ITS ---
Reason for Consult Date of Consultation: 07/16/20 Reason for Consultation: Chest pain, elevated troponin History of Present Illness: The patient is a 54 year old F who has multiple medical issues presented to the ED today c/o a burning sensation all over her body. She states that she has been feeling this way for a few days and in fact presented yesterday 2/2 accidental OD of Ultram because she was trying to find something to help her pain. She does states that she has burning in her chest that radiates through to her back and is associated with nausea and diaphoresis. She has never had this before. She states that the chest 'burning is constant but does wax and wane in intensity. during her workup in the ED her troponin was noted to be elevated at 0.524. VSS. She has had w/u for CP in the past and never had an elevated troponin. She had a stress test that was negative in 07/2019. Her EKG shows no changes associated with acute ischemia. She is a never smoker, has DM, HTN, no recent chol checks and is MO. She had a cardiac cath in 2011 in [place] but is unable to recall the results but knows she didn't get stents. Patient was evaluated in the PCU. She was having ongoing chest pain. After discussing the risks and benefits we proceeded with coronary angiography which revealed about a 20% stenosis in the proximal LAD. No other significant stenoses. Overall EF is preserved. She does have possible hypokinesis of the basal inferior wall. Review of systems: All systems reviewed. All else is negative except that in HPI. Past Medical History Allergies/Adverse Reactions: Allergies vancomycin Allergy (Severe, Verified 07/16/20 07:07) BURNING RED RASH ON LEGGS cefazolin sodium [From Ancef] Allergy (Verified 07/16/20 07:07) Hives Penicillins Allergy (Verified 07/16/20 07:07) Hives sumatriptan [From Imitrex] Allergy (Verified 07/16/20 07:07) Shortness of breath ziprasidone [From Geodon] Adverse Reaction (Verified 07/16/20 07:07) NEEDS FOLLOW-UP AG X8 DAYS PER PT Home Medications: Ambulatory Orders Medication Instructions Recorded Buspirone HCl 20 mg PO TID 03/05/17 Nadolol [Corgard (Beta Torin)] 160 mg PO QHS 03/05/17 Oxybutynin Chloride [Ditropan Xl] 15 mg PO QHS 03/05/17 Quetiapine Fumarate [Quetiapine 300 mg PO QHS 03/05/17 Fumarate ER] buPROPion XL [Wellbutrin Xl] 450 mg PO DAILY 03/05/17 Lisinopril 5 mg PO BID 03/20/17 omeprazole 10 mg capsule,delayed 20 mg PO DAILY 02/18/18 release valacyclovir 1 gram tablet 1,000 mg PO DAILY 02/18/18 Diazepam [Valium] 10 mg PO BID PRN PRN 03/11/18 Orphenadrine [Norflex] 100 mg PO BID PRN 03/11/18 traMADol [Ultram] 100 mg PO Q6H PRN PRN 03/11/18 Albuterol Inhaler [Ventolin Hfa] 2 puff INHALATION Q4H PRN PRN 05/29/18 glimepiride 2 mg tablet 4 mg PO BID tab 09/20/18 Insulin Glargine,Hum.rec.anlog 34 unit SUBCUT DAILY 10/07/18 [Basaglar Kwikpen U-100] Rizatriptan Benzoate [Rizatriptan] 5 mg PO DAILY PRN 10/07/18 Pregabalin [Lyrica] 75 mg PO TID 10/14/18 Insulin Lispro [Humalog KwikPen] 0 - 100 unit SQ TIDCM 12/05/18 Liraglutide [Victoza 2-Konrad] 0.8 mg SQ DAILY 12/05/18 Dicyclomine HCl [Bentyl] 20 mg PO TIDAC #20 cap 07/28/19 Escitalopram Oxalate [Lexapro] 20 mg PO DAILY 08/04/19 Fluticasone 0.05% [Flonase Nasal 2 spray NASAL DAILY 08/04/19 [place]] Primidone [Mysoline] 100 mg PO 4X/DAY 08/04/19 Ondansetron [Zofran Odt] 4 mg PO Q8H PRN PRN 09/22/19 Topiramate 50 mg PO BID 10/09/19 Paliperidone [Invega] 6 mg PO DAILY 03/16/20 Tizanidine HCl [Zanaflex] 4 mg PO PRN PRN 07/15/20 Prednisone [Deltasone] 40 mg PO DAILY 07/16/20 Past Medical History (Chronic Problems): Chronic Problems (Last Reviewed 07/16/20 @ 10:[address] Shauna Jorgensen DO) HTN (hypertension) (Chronic) Diabetes mellitus type 2, uncontrolled, with complications (Chronic) Pain syndrome, chronic (Chronic) Bipolar disorder (Chronic) Migraines (Chronic) Obstructive sleep apnea (Chronic) Stasis dermatitis of both legs (Chronic) Venous insufficiency of both lower extremities (Chronic) Super obese (Chronic) ADHD (attention deficit hyperactivity disorder) (Chronic) Benign hypertension (Chronic) Type II diabetes mellitus (Chronic) GERD (gastroesophageal reflux disease) (Chronic) COPD (Chronic) Open wound of left lower extremity (Chronic) Surgical History: herniorrhaphy, hysterectomy, - - tubes in ears, knee scopes, dr malik for left anterior leg wound, hernia repair, carpal tunnel surgery bilateral Psychiatric History: Anxiety, Bipolar, Depression [employer] History: No pertinent [employer] history - *Family History Maternal Family History: Family History (Last Reviewed 07/16/20 @ 10:[address] Shauna Jorgensen DO) Other Hypertension Kidney disease History Items: Heart Disease, Hypertension, Stroke Paternal Family History: Family History (Last Reviewed 07/16/20 @ 10:[address] Shauna Jorgensen DO) Other Hypertension Kidney disease History Items: Hypertension, Stroke Smoking Status: Never smoker Objective: Vital Signs Temp Pulse Resp BP Pulse Ox 97.8 F 60 16 169/89 H 95 07/16/20 11:18 07/16/20 11:56 07/16/20 11:18 07/16/20 11:56 07/16/20 11:18 Oxygen Delivery Method Room Air Weight: 294 lb Body Mass Index (BMI) 48.9 Finger Stick Blood Glucose 178 General: Awake, Alert, Oriented x 3 HEENT: Atraumatic Oral: Moist Mucosa Neck: Supple Lungs: Clear to auscultation Cardiovascular: Regular Rhythm Abdomen: Soft Extremities: No edema Skin: No Rashes Psych/Mental Status: Appropriate 07/16/20 07:33: WBC Cancelled, Corrected WBC Cancelled, RBC Cancelled, Hgb Cancelled, Hct Cancelled, MCV Cancelled, MCH Cancelled, MCHC Cancelled, Plt Count Cancelled, MPV Cancelled, Immature Gran % (Auto) Cancelled, Neut % (Auto) Cancelled, Lymph % (Auto) Cancelled, [place] % (Auto) Cancelled, Eos % (Auto) Cancelled, Baso % (Auto) Cancelled, Absolute Neuts (auto) Cancelled, Total Counted Cancelled, Neutrophils % (Manual) Cancelled, Band Neutrophils % Cancelled, Lymphocytes % (Manual) Cancelled, Monocytes % (Manual) Cancelled, Eosinophils % (Manual) Cancelled, Basophils % (Manual) Cancelled, Metamyelocytes % Cancelled, Myelocytes % Cancelled, Promyelocytes % Cancelled, Blast Cells % Cancelled, Plasma Cell % (Manual) Cancelled, Other Cells % Cancelled, Nucleated RBC % Cancelled 07/16/20 07:33: Sodium 135 L, Potassium 4.8, Chloride 102, Carbon Dioxide 27.0, Anion Gap 6, BUN 10, Creatinine 0.82, Est GFR (MDRD) Af Amer 92, Est GFR (MDRD) Non-Af 76, BUN/Creatinine Ratio 12.2, Glucose 195 H, Calcium 9.2, Troponin I 0.524 H 07/16/20 08:10: WBC 7.1, RBC 4.66, Hgb 11.8 L, Hct 37.2, MCV 79.8 L, MCH 25.3 L, MCHC 31.7 L, Plt Count 176, MPV 9.4, Immature Gran % (Auto) 0.700, Neut % (Auto) 81.6 H, Lymph % (Auto) 11.1 L, [place] % (Auto) 6.6, Eos % (Auto) 0.0, Baso % (Auto) 0.0, Absolute Neuts (auto) 5.8, Nucleated RBC % 0 07/16/20 10:55: Troponin I 0.323 H Rhythm: EKG: ECHO: Stress Test: Cardiac Cath: PCI: CT Surgery: Holter monitor: EPS: PPM: CXR: Chest CT Scan: Assessment/Plan 1. Chest pain: Patient underwent coronary angiography which did not reveal significant stenoses. In the presence of elevated troponin this could be secondary to myocarditis. We did consider PE in the differential. However patient is not tachycardic or hypoxemic. We will check a 2D echo to evaluate the possible regional wall motion abnormality in more detail. Her troponin is already trending down. Patient is already on atorvastatin. Differential diagnosis for the burning chest pain could be gastritis. With this in mind we will not start aspirin at this time. Once GI etiology of chest pain is ruled out we could start aspirin.
--- NOTE | 2020-07-16 14:38 | CL.D_ITS ---
Patient Name: GARTH MACK Study Date: 07/16/2020 Performing: Paula Rucker MD Ht: 65 inches 165 cm : 1965 Wt: 293.6 lbs 133 kg Age: 54 Gender: female BSA: 2.33 PROCEDURE(S) PERFORMED TS57-BUU/COR/LV CLINICAL PROFILE AND INDICATIONS Indications: ACS > 24 hrs Heart Failure: None Stress/Imaging Stress/Image Study Performed: No CAD Presentations: Non-STEMI. Symptom onset Date/Time: Time Not Available CONCLUSIONS Mild non obstructive CAD. Preserved EF with inferobasal hypokinesis. No significant or MR RECOMMENDATIONS DESCRIPTION OF PROCEDURE The patient arrived to the procedure lab. The risks and benefits of the procedure as well as a full d escription of our services here and current unavailability of surgical backup were fully explained to the patient and/or their significant other prior to the catheterization. The Timeout was completed, verifying the correct patient and procedure. The patient's procedural site was prepped and draped in the usual fashion. Local anesthetic was given subcutaneously to right radial region with Lidocaine 2% . Using a modified Seldinger technique, arterial access was obtained via the right radial artery, a 6 Fr sheath was inserted. Left Coronary Artery selective angiography was performed in multiple views u sing a 5 Fr. JL3.5 catheter. Left Ventriculography was performed in JONES projection using a 5 Fr. JR4. LV to AO pullback pressures were then recorded. Right Coronary Artery selective angiography was then performed in multiple views using a 5 Fr. JR 4 catheter.The arterial sheath was pulled and a TR Band was applied for hemostasis CORONARY ANGIOGRAPHY DOMINANCE: Co- Dominant LEFT HEART ASSESSMENT Left Ventricular Ejection Fraction: by LV Gram 55 % Inferior Basal Hypokinesis - Severe LEFT MAIN: Mild luminal irregularities LEFT ANTERIOR DESCENDING ARTERY: PROX LAD: 20 % Stenosis CIRCUMFLEX ARTERY: Angiographically normal RIGHT CORONARY ARTERY: Angiographically normal VALVE FINDINGS: No Aortic Valve Stenosis No Mitral Insufficency COMPLICATIONS No Complications PROCEDURE MEDICATIONS Fentanyl 50 mcg IV Versed 1 mg IV Versed 1 mg IV Oxygen: 2 L/min via nasal cannula Heparin given IA 07/16/2020 13:20:24 Verapamil 2.5mg, Ntg 100mcgs, 3000 units of Heparin given IA 07/16/2020 13:20:24 SUMMARY OF HEMODYNAMIC DATA Time AIR REST ECG 13:04:44 AO 135/84 (108) SA 13:23:58 LV 140/6, 23 13:27:59 LV 143/2, 23 13:28:07 LV 159/1, 23 13:28:58 LVp 151/3, 16 13:29:13 AOp 159/83 (117) 13:29:18 Signed By Paula Rucker MD On 07/16/2020 14:37:09 Paula Rucker MD
[2020-07-16] MEDS: predniSONE 20 MG Tablet 40 MG PO (14:40)
[2020-07-16] MEDS: busPIRone 5 MG Tablet 20 MG PO ×2 (14:41→21:05)
[2020-07-16] MEDS: Primidone 50 MG Tablet 100 MG PO ×3 (14:41→21:06)
[2020-07-16] MEDS: Pregabalin 75 MG Capsule PO ×2 (14:43→21:06)
--- NOTE | 2020-07-16 15:47 | CHAPLAIN ---
Type of Pastoral Visit _x__ Initial Visit ___ Follow-up Visit ___ On-call Visit ___ General Patient Visit ___ Spiritual Assessment ___ Family Conference ___ Bereavement ___ Rapid Response ___ Code Blue ___ Other (describe below) Pastoral Care Referral From _x__ Patient ___ Family ___ Nurse ___ Physician ___ Parts Advisor ___ Legal Instructor ___ Other (describe below) Sacrament/Intervention _x__ Active listening ___ Anointing ___ Protestant ___ Bereavement ___ Communion ___ Rianna exploration ___ _x__ Life review _x__ Prayer ___ Reconciliation ___ Sacrament of Sick _x__ Supportive presence ___ Wedding ___ Other (describe below) Pastoral Comments
[2020-07-16] MEDS: Ondansetron 4 MG/2 ML Vial IV (16:12)
[2020-07-16] MEDS: Morphine 2 MG/ML Syringe IV ×2 (16:12→20:45)
[2020-07-16 17:46] LABS: Bedside Glucose 183 mg/dL (70-110)
[2020-07-16] MEDS: Insulin Lispro 100 UNIT/ML INSULN.PEN SC (17:59)
[2020-07-16] MEDS: 0.9% Saline Lock 10 ML Syringe IV (20:48)
[2020-07-16] MEDS: Tolterodine Tartrate 4 MG CAP.SA PO (21:05)
[2020-07-16] MEDS: QUEtiapine 100 MG Tablet 300 MG PO (21:06)
[2020-07-16] MEDS: Enoxaparin 40 MG/0.4 ML Syringe SC (21:06)
[2020-07-16] MEDS: Atorvastatin Calcium 80 MG Tablet PO (21:06)
[2020-07-16] MEDS: Acyclovir 200 MG Capsule 400 MG PO (21:07)
[2020-07-17] VITALS (7 sets, daily range): BP systolic 117–154; BP diastolic 58–77; PULSE 48–68; RESP 16; TEMP 35.9–36.8; O2SAT 93–96
[2020-07-17] MEDS: Insulin Lispro 100 UNIT/ML INSULN.PEN SC ×2 (00:31→12:10)
[2020-07-17 00:41] LABS: Bedside Glucose 171 mg/dL (70-110)
[2020-07-17] MEDS: 0.9% Normal Saline 1,000 ML 70 ML IV (02:23)
[2020-07-17] MEDS: busPIRone 5 MG Tablet 20 MG PO ×2 (05:55→15:07)
[2020-07-17] MEDS: Pregabalin 75 MG Capsule PO ×2 (05:56→15:10)
[2020-07-17] MEDS: Dicyclomine 10 MG Capsule 20 MG PO ×2 (05:56→12:11)
[2020-07-17 06:06] LABS: Bedside Glucose 105 mg/dL (70-110)
[2020-07-17 07:22] LABS: Absolute Lymphocyte Count 1.24 X10^3/uL (0.83-4.51); Absolute Neutrophil Count 4.5 X10^3/uL (2.0-7.7); Eosinophil# 0.02 X10^3/uL; Eosinophils% 0.3 % (0-5); Hematocrit 34.5 % (37-47); Hemoglobin 10.5 g/dL (12.0-15.0); Lymphocyte # 1.24 X10^3/ul (4.0); Lymphocyte % 19.7 % (19-41); Mean Corp Hgb Conc 30.4 g/dL (32-36); Mean Corpuscular Hgb 25.2 pg (27.0-32.0); Mean Corpuscular Volume 82.9 fL (81-99); Mean Platelet Vol. 9.8 fl (6.2-12.0); Monocyte# 0.52 X10^3/uL; Monocyte% 8.2 % (0-10); NRBC Flagged by Analyzer 0 % (0-5); Neutrophil % 71.3 % (47-70); Platelet Count 157 K/mm3 (150-450); RBC Distribution Width CV 17.2 % (11.6-14.6); Red Blood Count 4.16 M/mm3 (4.2-5.4); White Blood Count 6.3 K/mm3 (4.4-11.0)
[2020-07-17 07:56] LABS: ALB/GLOB Ratio 0.9 RATIO (0.9-2.4); AST(SGOT) 13 U/L (15-37); Alanine Aminotransfer ALT/SGPT 19 U/L (13-56); Albumin, Serum 3.1 g/dL (3.2-5.0); Alkaline Phosphatase 56 U/L (45-117); Anion Gap 4 (5-15); BUN 16 mg/dL (7-18); BUN/Creat Ratio 17.4 RATIO (10-20); Calcium,Total 8.4 mg/dL (8.5-10.1); Chloride 105 mmol/L (98-107); Cholesterol 144 mg/dL (200); Creatinine, Serum 0.92 mg/dL (0.55-1.02); EST Glomerular Filtration Rate 67 mL/min (>60); Est Glom Filt Rate - Afr Amer 81 mL/min (>60); Estimated Creatinine Clearance 61.44 ml/min; Globulin 3.4 g/dL (2.2-4.2); Glucose 125 mg/dL (74-106); High Density Lipoprotein 53 mg/dL; Phosphorus 4.1 mg/dL (2.5-4.9); Potassium 3.9 mmol/L (3.5-5.1); Protein, Total 6.5 g/dL (6.4-8.2); Sodium Level 140 mmol/L (136-145); Thyroid Stim Hormone (TSH) 0.25 uIU/mL (0.358-3.74); Triglycerides 108 mg/dL; Very Low Density Lipoprotein 22 mg/dL (5-40)
[2020-07-17] MEDS: predniSONE 20 MG Tablet 40 MG PO (09:14)
[2020-07-17] MEDS: Paliperidone 6 MG Tablet PO (09:14)
[2020-07-17] MEDS: Primidone 50 MG Tablet 100 MG PO ×2 (09:14→15:07)
[2020-07-17] MEDS: Fluticasone 0.05% 1 SPRAY NASAL.SRY 2 SPRAY NASAL (09:14)
[2020-07-17] MEDS: Escitalopram Oxalate 10 MG Tablet 20 MG PO (09:14)
[2020-07-17] MEDS: buPROPion (XL) 300 MG TABLET.XL PO (09:15)
[2020-07-17] MEDS: buPROPion (XL) 150 MG TABLET.XL PO (09:15)
[2020-07-17] MEDS: Acyclovir 200 MG Capsule 400 MG PO (09:15)
[2020-07-17] MEDS: Acetaminophen 325 MG Tablet 650 MG PO (09:26)
[2020-07-17] MEDS: Mag Hydrox/Al Hydrox/Simeth 30 ML UDC PO (09:26)
[2020-07-17] MEDS: Lisinopril 10 MG Tablet PO (10:27)
[2020-07-17] MEDS: Metoprolol Tartrate 25 MG Tablet PO (10:27)
[2020-07-17] MEDS: Topiramate 50 MG Tablet PO (10:27)
[2020-07-17] MEDS: Morphine 2 MG/ML Syringe IV (10:32)
[2020-07-17 11:54] LABS: T4 Free Direct 1.02 ng/dL (0.76-1.46)
[2020-07-17 12:46] LABS: Bedside Glucose 209 mg/dL (70-110)
[2020-07-17] MEDS: Senna/Docusate Sodium 1 Tablet 2 TABLET PO (12:59)
--- NOTE | 2020-07-17 14:25 | PCM.DC ---
- Discharge Diagnoses Current Active Problems: Current Active and Chronic Problems (Last Updated 07/17/20 @ 09:16 by Gayle Kay) History of left heart catheterization (Acute 07/16/20) Chest pain (Acute) You will use the following diet at home:: Calorie/Carbohydrate Controlled (specify 1200, 1400, etc), Cardiac Your food should be the consistency of: Regular Your liquids should be the consistency of: Regular/Thin Discharge Activity: Return to Normal Activity, No Restrictions, May Drive Call your doctor if your incision/area has: Continuous Slow Oozing, Sudden Increased Bleeding, Increased Pain/ Swelling, Increased Redness, Foul Smelling Discharge, Swelling at the incision site Allergies/Adverse Reactions: Allergies vancomycin Allergy (Severe, Verified 07/16/20 07:07) BURNING RED RASH ON LEGGS cefazolin sodium [From Ancef] Allergy (Verified 07/16/20 07:07) Hives Penicillins Allergy (Verified 07/16/20 07:07) Hives sumatriptan [From Imitrex] Allergy (Verified 07/16/20 07:07) Shortness of breath ziprasidone [From Geodon] Adverse Reaction (Verified 07/16/20 07:07) NEEDS FOLLOW-UP AG X8 DAYS PER PT Medications to take at Discharge Buspirone HCl 20 mg PO TID 03/05/17 Nadolol [Corgard (Beta Torin)] 160 mg PO QHS 03/05/17 Oxybutynin Chloride [Ditropan Xl] 15 mg PO QHS 03/05/17 Quetiapine Fumarate [Quetiapine Fumarate ER] 300 mg PO QHS 03/05/17 buPROPion XL [Wellbutrin Xl] 450 mg PO DAILY 03/05/17 Lisinopril 5 mg PO BID 03/20/17 omeprazole 10 mg capsule,delayed release 20 mg PO DAILY 02/18/18 valacyclovir 1 gram tablet 1,000 mg PO DAILY 02/18/18 Diazepam [Valium] 10 mg PO BID PRN PRN 03/11/18 Orphenadrine [Norflex] 100 mg PO BID PRN 03/11/18 traMADol [Ultram] 100 mg PO Q6H PRN PRN 03/11/18 Albuterol Inhaler [Ventolin Hfa] 2 puff INHALATION Q4H PRN PRN 05/29/18 glimepiride 2 mg tablet 4 mg PO BID tab 09/20/18 Insulin Glargine,Hum.rec.anlog [Basaglar Kwikpen U-100] 34 unit SUBCUT DAILY 10/07/18 Rizatriptan Benzoate [Rizatriptan] 5 mg PO DAILY PRN 10/07/18 Pregabalin [Lyrica] 75 mg PO TID 10/14/18 Insulin Lispro [Humalog KwikPen] 0 - 100 unit SQ TIDCM 12/05/18 Liraglutide [Victoza 2-Konrad] 0.8 mg SQ DAILY 12/05/18 Dicyclomine HCl [Bentyl] 20 mg PO TIDAC #20 cap 07/28/19 Escitalopram Oxalate [Lexapro] 20 mg PO DAILY 08/04/19 Fluticasone 0.05% [Flonase Nasal [place]] 2 spray NASAL DAILY 08/04/19 Primidone [Mysoline] 100 mg PO 4X/DAY 08/04/19 Ondansetron [Zofran Odt] 4 mg PO Q8H PRN PRN 09/22/19 Topiramate 50 mg PO BID 10/09/19 Paliperidone [Invega] 6 mg PO DAILY 03/16/20 Tizanidine HCl [Zanaflex] 4 mg PO PRN PRN 07/15/20 Prednisone [Deltasone] 40 mg PO DAILY 07/16/20 Aspirin [Aspirin, Baby] 81 mg PO DAILY@0800 tab.chew 07/17/20 Lisinopril [Zestril] 20 mg PO DAILY #30 tab 07/17/20 The following prescriptions were given: Lisinopril [Zestril] 20 mg PO DAILY #30 tab Transmission Status: Pending to [id number] Primary Care Physician: Cristal Wolf MD [Primary Care Provider] - Please follow up with your Primary Care Physician in: 1-2 weeks Test Results: Test results from this visit will be discussed in further detail at your follow-up appointment, if applicable. Please Follow Up With: Clarita Rucker MD When: 2-3 weeks
--- NOTE | 2020-07-17 14:27 | PCM.DC.SUM ---
Discharge Date and Diagnosis - Problem List Patient Problems: Active and Suspected Problems (Last Updated 07/17/20 @ 09:16 by Gayle Nolt) History of left heart catheterization (Acute 07/16/20) Chest pain (Acute) Date of Admission: 07/16/20 Date of Discharge: 07/17/20 - Primary Discharge Diagnosis Acute Problems: Active Problems (Last Updated 07/17/20 @ 09:16 by Gayle Nolt) History of left heart catheterization (Acute 07/16/20) Chest pain (Acute) - Secondary Discharge Diagnosis Chronic Problems: Chronic Problems (Last Updated 07/17/20 @ 09:16 by Gayle Nolt) HTN (hypertension) (Chronic) Diabetes mellitus type 2, uncontrolled, with complications (Chronic) Pain syndrome, chronic (Chronic) Bipolar disorder (Chronic) Migraines (Chronic) Obstructive sleep apnea (Chronic) Stasis dermatitis of both legs (Chronic) Venous insufficiency of both lower extremities (Chronic) Super obese (Chronic) ADHD (attention deficit hyperactivity disorder) (Chronic) Benign hypertension (Chronic) Type II diabetes mellitus (Chronic) GERD (gastroesophageal reflux disease) (Chronic) COPD (Chronic) Open wound of left lower extremity (Chronic) Hospital Course and Treatment Imaging Results: ECHO -EF 60% -Infero-basal aneurysmal -no diastolic dysfunction Patient Name: GARTH MACK Study Date: 07/16/2020 Performing: Paula Rucker MD Ht: 65 inches 165 cm : 1965 Wt: 293.6 lbs 133 kg Age: 54 Gender: female BSA: 2.33 PROCEDURE(S) PERFORMED KP91-[id number]/COR/LV CLINICAL PROFILE AND INDICATIONS Indications: ACS > 24 hrs Heart Failure: None Stress/Imaging Stress/Image Study Performed: No CAD Presentations: Non-STEMI. Symptom onset Date/Time: Time Not Available CONCLUSIONS Mild non obstructive CAD. Preserved EF with inferobasal hypokinesis. No significant or MR RECOMMENDATIONS DESCRIPTION OF PROCEDURE The patient arrived to the procedure lab. The risks and benefits of the procedure as well as a full description of our services here and current unavailability of surgical backup were fully explained to the patient and/or their significant other prior to the catheterization. The Timeout was completed, verifying the correct patient and procedure. The patient's procedural site was prepped and draped in the usual fashion. Local anesthetic was given subcutaneously to right radial region with Lidocaine 2%. Using a modified Seldinger technique, arterial access was obtained via the right radial artery, a 6Fr sheath was inserted. Left Coronary Artery selective angiography was performed in multiple views using a 5 Fr. JL3.5 catheter. Left Ventriculography was performed in JONES projection using a 5 Fr. JR4. LV to AO pullback pressures were then recorded. Right Coronary Artery selective angiography was then performed in multiple views using a 5 Fr. JR 4 catheter.The arterial sheath was pulled and a TR Band was applied for hemostasis CORONARY ANGIOGRAPHY DOMINANCE: Co- Dominant LEFT HEART ASSESSMENT Left Ventricular Ejection Fraction: by LV Gram 55 % Inferior Basal Hypokinesis - Severe LEFT MAIN: Mild luminal irregularities LEFT ANTERIOR DESCENDING ARTERY: PROX LAD: 20 % Stenosis CIRCUMFLEX ARTERY: Angiographically normal RIGHT CORONARY ARTERY: Angiographically normal VALVE FINDINGS: No Aortic Valve Stenosis No Mitral Insufficency COMPLICATIONS No Complications PROCEDURE MEDICATIONS Fentanyl 50 mcg IV Versed 1 mg IV Versed 1 mg IV Oxygen: 2 L/min via nasal cannula Heparin given IA 07/16/2020 13:20:24 Verapamil 2.5mg, Ntg 100mcgs, 3000 units of Heparin given IA 07/16/2020 13:20:24 SUMMARY OF HEMODYNAMIC DATA Time AIR REST ECG 13:04:44 AO 135/84 (108) SA 13:23:58 LV 140/6, 23 13:27:59 LV 143/2, 23 13:28:07 LV 159/1, 23 13:28:58 LVp 151/3, 16 13:29:13 AOp 159/83 (117) 13:29:18 Signed By Paula Rucker MD On 07/16/2020 14:37:09 Paula Rucker MD 07/16/20 1437 Date Clarita Rucker MD Operations: None Procedures: 2-D Echocardiogram, Cardiac catheterization Summary of Care Provided: Ms Mack is a 54 year old F who has multiple medical issues and presented to the ED on 07/16/2020 c/o a burning sensation all over her body. She stated that she had been feeling this way for a few days and in fact presented to the ED on 07/15/2020 2/2 accidental OD of Ultram because she was trying to find something to help her pain. She did states that she has burning in her chest that radiates through to her back and is associated with nausea and diaphoresis. She had never had this before. She stated that the chest 'burning was constant but did wax and wane in intensity. During her workup in the ED her troponin was noted to be elevated at 0.524. On admission her VSS. She had a w/u for CP in the past and but has never had an elevated troponin. She had a stress test that was negative in 07/2019. Her EKG shows no changes associated with acute ischemia. She is a never smoker, has DM, HTN, no recent chol checks and is MO. With her h/o neg stress test within the last year and troponin elevation cardiology was consulted and took her to the prosthetic lab technician she was found to have mild CAD at the time but no need for intervention 2/2 critical stenosis. There was concern with her LV gram of inf/basal hypokinesis that was severe in nature and cardiology ordered a f/u ECHO to further evaluate the area. On the ECHO her EF was noted to be 60% and again she had a area of hypokinesis in the inf/basal portion of the heart that was aneurysmal. ASA 81 mg was initiated and she is to f/u with Cardiology in 2-3 weeks. Her BP was also noted to consistently elevated and her Lisinopril was therefore increased to 20mg daily. The pt will take 2 10 mg tabs at home until her 10 mg doses are gone and a script was sent for the 20 mg doses. Pt expressed understanding of this. She will call Monday for a f/u with cardiology and I recommended she see her PCP in 1-2 weeks. Her burning sensation had improved at d/c. She states that is typical for a fibromyalgia flare for her. No other med changes were made. >31' spent on discharge coordination Patient Problems: Active and Suspected Problems (Last Updated 07/17/20 @ 09:16 by Gayle Kay) History of left heart catheterization (Acute 07/16/20) Chest pain (Acute) Subjective: Pt states that she is feeling better. Burning pain has resolved and she is ready to go home. - Physical Exam Vitals/I&O's: Vital Signs Temp Pulse Resp BP Pulse Ox 98.3 F 62 16 154/77 H 93 07/17/20 11:45 07/17/20 11:45 07/17/20 11:45 07/17/20 11:45 07/17/20 11:45 Oxygen Flow Rate (L/min) 2 Oxygen Delivery Method Room Air Weight: 132.6 kg Body Mass Index (BMI) 48.9 Finger Stick Blood Glucose 178 Intake and Output for Last 24 Hours 07/15/20 07/16/20 07/17/20 23:59 23:59 23:59 Intake Total 650 / 770 1180 / 1180 Output Total 1000 / 1400 400 / 400 Balance -350 / -630 780 / 780 General: Alert, Oriented x3, Cooperative, No apparent distress, Well developed, Well nourished, - - MO WF sitting up in bed watching TV HEENT: Atraumatic, PERRLA, EOMI, Normocephalic, EAC Clear Oral: Moist Mucosa, No Gingival or Mucosal Lesions/ Ulcerations Neck: Supple, No JVD, No Nuchal Rigidity, Trachea Midline, Thyroid Normal Size and Texture Lungs: Clear to auscultation, Normal air movement, No rhonchi, No wheeze, No rales Cardiovascular: Regular rate, Regular Rhythm, Normal S1, Normal S2, No murmurs, No Ectopic Activity, No rub noted, No Gallop Abdomen: Bowel Sounds Present, Soft, Non Tender, Non-Distended, Obese Extremities: No clubbing, No cyanosis, No edema, Capillary Refill Less than 3 Seconds, Peripheral Pulses Normal Skin: No rashes, No breakdown, - - pale Musculoskeletal: No Tenderness to Palpation of Joints or Extremities, No Muscle Wasting Lymphatic: No Cervical, Supraclavicular, or Inguinal Adenopathy Neurological: Cranial nerves II-XII grossly intact, Neuro grossly intact Psych/Mental Status: Normal Affect, Appropriate, Alert and oriented to time, place, person, mood and affect Laboratory Results 07/16/20 15:15: Troponin I 0.451 H 07/16/20 17:38: POC Glucose 183 H 07/17/20 00:30: POC Glucose 171 H 07/17/20 05:46: POC Glucose 105 07/17/20 06:33: WBC 6.3, RBC 4.16 L, Hgb 10.5 L, Hct 34.5 L, MCV 82.9, MCH 25.2 L, MCHC 30.4 L, RDW Std Deviation 52.0 H, RDW Coeff of Jocy 17.2 H, Plt Count 157, MPV 9.8, Immature Gran % (Auto) 0.500, Neut % (Auto) 71.3 H, Lymph % (Auto) 19.7, [place] % (Auto) 8.2, Eos % (Auto) 0.3, Baso % (Auto) 0.0, Absolute Neuts (auto) 4.5, Absolute Lymphs (auto) 1.24, Nucleated RBC % 0 07/17/20 06:33: Sodium 140, Potassium 3.9, Chloride 105, Carbon Dioxide 31.0, Anion Gap 4 L, BUN 16, Creatinine 0.92, Estim Creat Clear Calc 61.44, Est GFR (MDRD) Af Amer 81, Est GFR (MDRD) Non-Af 67, BUN/Creatinine Ratio 17.4, Glucose 125 H, Calcium 8.4 L, Phosphorus 4.1, Magnesium 2.0, Total Bilirubin 0.40, AST 13 L, ALT 19, Alkaline Phosphatase 56, Total Protein 6.5, Albumin 3.1 L, Globulin 3.4, Albumin/Globulin Ratio 0.9, Triglycerides 108, Cholesterol 144, LDL Cholesterol 69, VLDL Cholesterol 22, HDL Cholesterol 53, TSH 0.25 L 07/17/20 06:33: Free T4 1.02 07/17/20 12:09: POC Glucose 209 H Current Medications Acetaminophen (Tylenol) 650 mg PO Q6H PRN PRN PRN Reason: Pain Score 1-10/Temp > 100.7 F Last Admin: 07/17/20 09:26 Dose: 650 mg Documented by: Acyclovir (Zovirax) 400 mg PO BID [facility] Last Admin: 07/17/20 09:15 Dose: 400 mg Documented by: Al Hydroxide/Mg Hydroxide (Mylanta Ii) 30 ml PO Q6H PRN PRN PRN Reason: Gastric Burning Last Admin: 07/17/20 09:26 Dose: 30 ml Documented by: Albuterol Sulfate (Ventolin Aerosols) 2.5 mg INHALATION Q2H PRN PRN PRN Reason: SOB/Wheezing Aspirin (Aspirin, Baby) 81 mg PO DAILY@0800 [facility] Atorvastatin Calcium (Lipitor) 80 mg PO QHS [facility] Last Admin: 07/16/20 21:06 Dose: 80 mg Documented by: Bupropion HCl (Wellbutrin Xl) 300 mg PO DAILY [facility] Last Admin: 07/17/20 09:15 Dose: 300 mg Documented by: Bupropion HCl (Wellbutrin Xl) 150 mg PO DAILY [facility] Last Admin: 07/17/20 09:15 Dose: 150 mg Documented by: Buspirone HCl (Buspar) 20 mg PO TID [facility] Last Admin: 07/17/20 05:55 Dose: 20 mg Documented by: Diazepam (Valium) 10 mg PO BID PRN PRN PRN Reason: ANXIETY Dicyclomine HCl (Bentyl) 20 mg PO TIDAC [facility] Last Admin: 07/17/20 12:11 Dose: 20 mg Documented by: Enoxaparin Sodium (Lovenox) 40 mg SC BID [facility] Last Admin: 07/17/20 10:28 Dose: Not Given Documented by: Escitalopram Oxalate (Lexapro) 20 mg PO DAILY [facility] Last Admin: 07/17/20 09:14 Dose: 20 mg Documented by: Fluticasone Propionate (Flonase Nasal [place]) 2 spray NASAL DAILY [facility] Last Admin: 07/17/20 09:14 Dose: 2 sprays Documented by: Sodium Chloride () 1,000 mls @ 70 mls/hr IV .[id number] [facility] Last Admin: 07/17/20 02:23 Dose: 70 mls/hr Documented by: Sodium Chloride () 1,000 mls @ 60 mls/hr IV .[id number] [facility] Last Admin: 07/17/20 12:11 Dose: Not Given Documented by: Insulin Glargine (Lantus (Bk)) 20 units SC 1100 [facility] Last Admin: 07/17/20 12:10 Dose: 20 units Documented by: Insulin Human Lispro (Humalog Kwikpen ([facility])) 0 unit SC Q6 [facility]; Protocol Last Admin: 07/17/20 12:10 Dose: 2 unit Documented by: Lisinopril (Zestril) 20 mg PO DAILY [facility] Melatonin (Melatonin) 3 mg PO QHS PRN PRN PRN Reason: INSOMNIA Metoprolol Tartrate (Lopressor (Beta Torin)) 25 mg PO BID [facility] Last Admin: 07/17/20 10:27 Dose: 25 mg Documented by: Morphine Sulfate () 2 mg IV Q3H PRN PRN PRN Reason: Pain Score 1-10/10 Last Admin: 07/17/20 10:32 Dose: 2 mg Documented by: Nitroglycerin (Nitrostat) 0.4 mg SUBLINGUAL Q5M PRN PRN Reason: CARDIAC/CHEST PAIN Last Admin: 07/16/20 11:46 Dose: 0.4 mg Documented by: Ondansetron HCl (Zofran) 4 mg IV Q8H PRN PRN PRN Reason: NAUSEA/VOMITING Last Admin: 07/16/20 16:12 Dose: 4 mg Documented by: Orphenadrine Citrate (Norflex Er) 100 mg PO BID PRN PRN Reason: muscles Paliperidone (Invega) 6 mg PO DAILY [facility] Last Admin: 07/17/20 09:14 Dose: 6 mg Documented by: [facility] () [facility] Last Admin: 07/17/20 09:14 Dose: 40 mg Documented by: Pregabalin (Lyrica) 75 mg PO TID [facility] Last Admin: 07/17/20 05:56 Dose: 75 mg Documented by: Primidone (Mysoline) 100 mg PO 4X/DAY [facility] Last Admin: 07/17/20 09:14 Dose: 100 mg Documented by: Quetiapine Fumarate (Seroquel) 300 mg PO QHS [facility] Last Admin: 07/16/20 21:06 Dose: 300 mg Documented by: Senna/Docusate Sodium (Senokot-S, Verónica-Colace) 2 tablet PO BID PRN PRN PRN Reason: Constipation Last Admin: 07/17/20 12:59 Dose: 2 tablet Documented by: Sodium Chloride () 10 - 40 ml IV UD PRN PRN Reason: SALINE FLUSH Last Admin: 07/16/20 20:48 Dose: 10 ml Documented by: Tizanidine HCl (Zanaflex) 4 mg PO DAILY PRN PRN PRN Reason: Muscle Spasm Tolterodine Tartrate (Detrol La) 4 mg PO QHS [facility] Last Admin: 07/16/20 21:05 Dose: 4 mg Documented by: Topiramate (Topamax) 50 mg PO BID [facility] Last Admin: 07/17/20 10:27 Dose: 50 mg Documented by: Discharge Activity: Return to Normal Activity, No Restrictions, May Drive Call your doctor if your incision/area has: Continuous Slow Oozing, Sudden Increased Bleeding, Increased Pain/ Swelling, Increased Redness, Foul Smelling Discharge, Swelling at the incision site Home Medications: Medications to take at Discharge Buspirone HCl 20 mg PO TID 03/05/17 Nadolol [Corgard (Beta Torin)] 160 mg PO QHS 03/05/17 Oxybutynin Chloride [Ditropan Xl] 15 mg PO QHS 03/05/17 Quetiapine Fumarate [Quetiapine Fumarate ER] 300 mg PO QHS 03/05/17 buPROPion XL [Wellbutrin Xl] 450 mg PO DAILY 03/05/17 Lisinopril 5 mg PO BID 03/20/17 omeprazole 10 mg capsule,delayed release 20 mg PO DAILY 02/18/18 valacyclovir 1 gram tablet 1,000 mg PO DAILY 02/18/18 Diazepam [Valium] 10 mg PO BID PRN PRN 03/11/18 Orphenadrine [Norflex] 100 mg PO BID PRN 03/11/18 traMADol [Ultram] 100 mg PO Q6H PRN PRN 03/11/18 Albuterol Inhaler [Ventolin Hfa] 2 puff INHALATION Q4H PRN PRN 05/29/18 glimepiride 2 mg tablet 4 mg PO BID tab 09/20/18 Insulin Glargine,Hum.rec.anlog [Marie Pascal U-100] 34 unit SUBCUT DAILY 10/07/18 Rizatriptan Benzoate [Rizatriptan] 5 mg PO DAILY PRN 10/07/18 Pregabalin [Lyrica] 75 mg PO TID 10/14/18 Insulin Lispro [Humalog KwikPen] 0 - 100 unit SQ TIDCM 12/05/18 Liraglutide [Victoza 2-Konrad] 0.8 mg SQ DAILY 12/05/18 Dicyclomine HCl [Bentyl] 20 mg PO TIDAC #20 cap 07/28/19 Escitalopram Oxalate [Lexapro] 20 mg PO DAILY 08/04/19 Fluticasone 0.05% [Flonase Nasal [place]] 2 spray NASAL DAILY 08/04/19 Primidone [Mysoline] 100 mg PO 4X/DAY 08/04/19 Ondansetron [Zofran Odt] 4 mg PO Q8H PRN PRN 09/22/19 Topiramate 50 mg PO BID 10/09/19 Paliperidone [Invega] 6 mg PO DAILY 03/16/20 Tizanidine HCl [Zanaflex] 4 mg PO PRN PRN 07/15/20 Prednisone [Deltasone] 40 mg PO DAILY 07/16/20 Aspirin [Aspirin, Baby] 81 mg PO DAILY@0800 tab.chew 07/17/20 Lisinopril [Zestril] 20 mg PO DAILY #30 tab 07/17/20 Following Prescriptions Were Given to Patient: Lisinopril [Zestril] 20 mg PO DAILY #30 tab Transmission Status: Pending to [facility] Primary Care Physician: Cristal Wolf MD [Primary Care Provider] - Please follow up with your Primary Care Physician in: 1-2 weeks Please Follow Up With: Clarita Rucker MD When: 2-3 weeks Medical Necessity - Tobacco Use Smoking Status: Never smoker Meaningful Use Info Meaningful Use Diagnoses (Choose all that apply): None applicable Inpatient E&M: [id number] [facility]
--- NOTE | 2020-07-17 14:57 | PCM.PN.CARD ---
Subjectve: Patient's chest pain has improved. She still has some degree of burning in her chest. Objective: Vital Signs Temp Pulse Resp BP Pulse Ox 98.3 F 62 16 154/77 H 93 07/17/20 11:45 07/17/20 11:45 07/17/20 11:45 07/17/20 11:45 07/17/20 11:45 Oxygen Flow Rate (L/min) 2 Oxygen Delivery Method Room Air Weight: 292 lb 5.327 oz Body Mass Index (BMI) 48.9 Finger Stick Blood Glucose 178 Intake and Output for Last 24 Hours 07/15/20 07/16/20 07/17/20 23:59 23:59 23:59 Intake Total 650 / 770 1180 / 1180 Output Total 1000 / 1400 400 / 400 Balance -350 / -630 780 / 780 General: Awake, Alert, Oriented x 3 HEENT: Atraumatic Oral: Moist Mucosa Neck: Supple Cardiovascular: Regular Rhythm Extremities: No edema Skin: No Rashes Psych/Mental Status: Appropriate 07/16/20 15:15: Troponin I 0.451 H 07/17/20 06:33: WBC 6.3, RBC 4.16 L, Hgb 10.5 L, Hct 34.5 L, MCV 82.9, MCH 25.2 L, MCHC 30.4 L, Plt Count 157, MPV 9.8, Immature Gran % (Auto) 0.500, Neut % (Auto) 71.3 H, Lymph % (Auto) 19.7, [place] % (Auto) 8.2, Eos % (Auto) 0.3, Baso % (Auto) 0.0, Absolute Neuts (auto) 4.5, Nucleated RBC % 0 07/17/20 06:33: Sodium 140, Potassium 3.9, Chloride 105, Carbon Dioxide 31.0, Anion Gap 4 L, BUN 16, Creatinine 0.92, Est GFR (MDRD) Af Amer 81, Est GFR (MDRD) Non-Af 67, BUN/Creatinine Ratio 17.4, Glucose 125 H, Calcium 8.4 L, Phosphorus 4.1, Magnesium 2.0, Total Bilirubin 0.40, Triglycerides 108, Cholesterol 144, LDL Cholesterol 69, VLDL Cholesterol 22, HDL Cholesterol 53 Rhythm: EKG: ECHO: Stress Test: Cardiac Cath: PCI: CT Surgery: Holter monitor: EPS: PPM: CXR: Chest CT Scan: Medical Necessity - Tobacco Use Smoking Status: Never smoker Assessment/Plan 1. Chest pain: Patient underwent coronary angiography which did not reveal significant stenoses. Patient's troponin has been trending down. She has had symptoms for over a week. 2D echo reveals baseline LV aneurysm. These could be due to myocardial infarction with open coronary arteries or the LV aneurysm could be idiopathic. Continue the statin. Once GI etiology for the chest pain is ruled out we can start aspirin. She may need another echo in 3 months. From a cardiac standpoint she can be discharged home and she can follow-up with us as an outpatient.
== END 2020-07-17 14:26 | disposition home or self-care (01) ==
LOC: ED 08:19 → PCU 09:40
PROVIDERS: Admitting Provider Internal Medicine; Emergency Provider Emergency Medicine; PCP Internal Medicine; Visit Provider Internal Medicine
DX: R07.89 Other chest pain (principal); I25.10 Atherosclerotic heart disease of native coronary artery without angina pectoris; M79.7 Fibromyalgia; F41.9 Anxiety disorder, unspecified; R00.1 Bradycardia, unspecified; E11.9 Type 2 diabetes mellitus without complications; I10 Essential (primary) hypertension; F31.9 Bipolar disorder, unspecified; G43.909 Migraine, unspecified, not intractable, without status migrainosus; F90.9 Attention-deficit hyperactivity disorder, unspecified type; J44.9 Chronic obstructive pulmonary disease, unspecified; I08.1 Rheumatic disorders of both mitral and tricuspid valves; K21.9 Gastro-esophageal reflux disease without esophagitis; E66.01 Morbid (severe) obesity due to excess calories; Z68.42 Body mass index [BMI] 45.0-49.9, adult; M19.90 Unspecified osteoarthritis, unspecified site; G47.33 Obstructive sleep apnea (adult) (pediatric); G89.4 Chronic pain syndrome; Z79.899 Other long term (current) drug therapy; Z79.4 Long term (current) use of insulin; Z79.51 Long term (current) use of inhaled steroids; Z79.52 Long term (current) use of systemic steroids
CPT/HCPCS: 36415; 71045; 80048; 80053; 80061; 82962; 83735; 84100; 84439; 84443; 84484; 85025; 93005; 93306; 93458; 96372; 96374; 96376; 99152; 99153; 99218; 99285; J7030; Q9957; Q9967; A4216; C1769; C1894; C8929; G0378; J2405

== ENCOUNTER 2020-09-07 10:39 | Emergency (ER) | payer MEDICAID, SELFPAY ==
[2020-08-12 13:14] VITALS: BMI 48.9
[2020-09-07 10:40] VITALS: BP 155/100; PULSE 59; RESP 19; TEMP 36.1; O2SAT 98; BMI 50.2
[2020-09-07 10:59] VITALS: BP 164/97; PULSE 60; RESP 18; O2SAT 98
[2020-09-07 11:00] VITALS: O2SAT 98
--- NOTE | 2020-09-07 11:07 | ED.VIS.DYS ---
History of Present Illness Chief Complaint: Shortness of Breath Informant: Patient Narrative: Patient presenting for evaluation due to concerns for COPD exacerbation. Patient has an underlying history of COPD. Patient reports that her next-door neighbor was smoking marijuana yesterday and it caused her to feel as if she was having a COPD flareup. Patient reports wheezing and shortness of breath with exertion. She reports that she used her inhaler 2 times and it did not seem to alleviate her symptoms. Patient denies any chest pain associated with this. No lightheadedness or syncope. She does have a cough at baseline but her sputum is unchanged. She denies any fevers. She does have a sick contact in her son who lives with her, but she states that they both recently tested negative for coronavirus. Patient reports that she called primary care office and they recommended that she come to the emergency department. She denies any nausea vomiting or diarrhea. Review of systems otherwise negative. Past Medical History - Allergies and Home Meds Allergies/Adverse Reactions: Allergies vancomycin Allergy (Severe, Verified 09/07/20 10:40) BURNING RED RASH ON LEGGS cefazolin sodium [From Ancef] Allergy (Verified 09/07/20 10:40) Hives Penicillins Allergy (Verified 09/07/20 10:40) Hives sumatriptan [From Imitrex] Allergy (Verified 09/07/20 10:40) Shortness of breath ziprasidone [From Geodon] Adverse Reaction (Verified 09/07/20 10:40) NEEDS FOLLOW-UP AG X8 DAYS PER PT Primary Care Physician: Cristal Wolf MD [Primary Care Provider] - Prior records reviewed: Yes Past Medical History: - - Hypertension, diabetes, COPD, bipolar disease Surgical History: herniorrhaphy, hysterectomy, - - tubes in ears, knee scopes, dr malik for left anterior leg wound, hernia repair, carpal tunnel surgery bilateral Lives: Spouse/ Significant Other Smoking Status: Never smoker Alcohol: None Drugs: None - Family History Paternal Family History: Family History (Last Reviewed 08/12/20 @ 15:[address] Clarita Rucker MD) Father CVA (cerebral vascular accident) Heart disease Mother Heart disease Family History: Reports: Hypertension, Stroke Maternal Family History: Family History (Last Reviewed 08/12/20 @ 15:[address] Clarita Rucker MD) Father CVA (cerebral vascular accident) Heart disease Mother Heart disease Family History: Reports: Heart Disease, Hypertension, Stroke Review of Systems All systems negative except as indicated General: Denies: Chills, Fever, Sweats Eyes: Denies: Visual changes - bilaterally, Diplopia ENT: Denies: Rhinorrhea, Sore throat Cardiovascular: Denies: Chest pain, Palpitations Respiratory: Reports: Dyspnea, Cough Gastrointestinal: Denies: Abdominal pain, Nausea, Vomiting, Diarrhea, Melena, Hematochezia Genitourinary: Denies: Dysuria, Hematuria, Frequency Musculoskeletal: Denies: Back pain, Extremity Pain Skin: Denies: Rash, Wounds Neurological: Denies: Headache, Weakness, Numbness Physical Exam Vital Signs/Narrative: Vital Signs Temp Pulse Resp BP Pulse Ox 09/07/20 10:59 60 18 164/97 H 98 09/07/20 10:40 97.0 F L 59 L 19 H 155/100 H 98 Inital Vital Signs reviewed: Yes General: Well nourished, Well developed, Obese, No Acute Distress Head: Normocephalic, Atraumatic Eyes: Perrl, EOMI ENT: Moist mucous membranes, No rhinorrhea Neck: Supple, Nontender Cardiovascular: Regular rate, Regular rhythm, No murmurs Respiratory: No distress, CTA bilaterally, Chest nontender Abdomen: Soft, Nontender, Nondistended, Normal bowel sounds Back: Nontender, Normal Inspection Extremities: Nontender, No edema Skin: - - Chronic skin changes of the lower extremities no evidence of cellulitis Neurological: Alert, Oriented x3, Cranial nerves II-XII grossly intact, Normal Strength, Normal Sensation Psychological: Normal affect, Normal Mood Diagnostic/Tx/Re-eval - Medical Decision Making Patient presented secondary to feelings of shortness of breath. Upon exam the patient is resting comfortably in the bed, has normal respiratory effort and clear lung sounds. She reports that there was a environmental exposure that caused her to have shortness of breath I do not feel that this is a presentation of cardiac dyspnea, PE, pneumonia, or other sinister etiology that would require further work-up. Patient was given a DuoNeb breathing treatment in the emergency department and will be discharged with a short course of steroids. She was recommended to follow-up with primary care. ED Disposition - Plan for ED Patient: Disposition: Home or Assisted Living Diagnosis: COPD exacerbation Instructions: ED COPD Flare Prescriptions: Prednisone [Deltasone] 40 mg PO DAILY #6 tab Prescription Printed Referrals: Cristal Wolf MD [Primary Care Provider] - 3-5 Days
[2020-09-07 11:23] VITALS: PULSE 89; RESP 20
[2020-09-07] MEDS: Ipratropium/Albuterol Sulfate 3 ML AMPUL.NEB INHALATION (11:23)
[2020-09-07 11:26] VITALS: BP 153/79; PULSE 84; RESP 15; O2SAT 98
== END 2020-09-07 11:27 | disposition home or self-care (01) ==
LOC: ED 11:18
PROVIDERS: Emergency Provider Emergency Medicine; PCP Internal Medicine
DX: J44.1 Chronic obstructive pulmonary disease with (acute) exacerbation (principal); E66.9 Obesity, unspecified
CPT/HCPCS: 94640; 99282

== ENCOUNTER → 2020-11-10 09:01 | Outpatient (CLI) | payer MEDICAID, SELFPAY | PROVIDERS: PCP Internal Medicine; Visit Provider Specialist | DX: R93.1 Abnormal findings on diagnostic imaging of heart and coronary circulation (principal) | CPT/HCPCS: 93308; Q9957; A4216; C8924 ==

== ENCOUNTER 2020-11-22 17:49 | Emergency (ER) | payer MEDICAID, SELFPAY ==
[2020-11-22 17:50] VITALS: BP 205/115; PULSE 73; RESP 22; TEMP 36.1; O2SAT 95; BMI 49.9
--- NOTE | 2020-11-22 18:13 | ED.VISSUMM ---
- ER Visit Summary Date of Service: 11/22/20 Chief Complaint: Constipation History of Present Illness: The patient is a 55 F history of insulin-dependent diabetes COPD and hypertension. Patient had a prior hysterectomy and C-sections. States she has not a bowel movement for the last 5 days. She is passing gas. She has had problems with constipation in the past. She denies any specific abdominal pain. No fever. No dysuria. Physical Examination: Well-appearing middle-aged female sitting in a chair. Vital signs are stable initial blood pressure is elevated 205/115. HEENT exam unremarkable. Moist mucous memories. Lungs clear to auscultation. Heart regular rhythm rate about 70 no murmur. Abdomen is soft. Obese. Nontender. Nondistended. Normal bowel sounds. No peritoneal signs. No signs of obstruction. No distention. No tympany. Extremities moves all 4. Neurologically she is awake alert with no focal motor deficits. Test Results: None Emergency Department Course and Treatment: History and exam are consistent with constipation. She has no signs of obstruction. She is passing gas. Her abdomen is nontender. X-rays are not necessary at this time. Treatment Plan: GoLYTELY to use at home. Follow-up with your doctor as needed. Return if worse. Disposition: Discharge Impression: Acute constipation History of insulin-dependent diabetes This note was generated with [employer] dictation software. It may contain incorrect words, spelling, and punctuation that were not noted in review of the chart prior to signing ED Disposition - Plan for ED Patient: Referrals: Cristal Wolf MD [Primary Care Provider] -
--- NOTE | 2020-11-22 18:16 | ED.DEP ---
ED Disposition - Plan for ED Patient: Disposition: Home or Assisted Living Instructions: ED Constipation (Adult) Referrals: Cristal Wolf MD [Primary Care Provider] - 3-5 Days if not improving Additional Instructions: Use the GoLYTELY. Plenty of fluids and fiber. Return if feeling worse. Follow-up with your doctor if not improving.
[2020-11-22 18:34] VITALS: RESP 16
[2020-11-22] MEDS: Electrolyte Solution/Peg's 4000 ML 1000 ML PO (18:34)
== END 2020-11-22 18:39 | disposition home or self-care (01) ==
LOC: ED 18:24
PROVIDERS: Emergency Provider Emergency Medicine; PCP Internal Medicine
DX: K59.09 Other constipation (principal); E11.9 Type 2 diabetes mellitus without complications; I10 Essential (primary) hypertension; J44.9 Chronic obstructive pulmonary disease, unspecified; Z79.4 Long term (current) use of insulin; Z90.710 Acquired absence of both cervix and uterus
CPT/HCPCS: 99283

== ENCOUNTER 2020-11-28 19:02 | Emergency (ER) | payer MEDICAID, SELFPAY ==
[2020-11-28 19:02] VITALS: BP 169/95; PULSE 78; RESP 18; TEMP 36.8; O2SAT 95; BMI 56.4
--- NOTE | 2020-11-28 19:17 | RAD_ITS ---
STUDY: X-RAY CHEST REASON FOR EXAM: Female, 55 years old. CHEST PAIN TECHNIQUE: AP COMPARISON: 07/16/2020 FINDINGS: EKG leads project over the chest. Right hemidiaphragm remains elevated. There is no demonstrated pleural abnormality. Normal size heart. Normal mediastinum and klei. Normal visualized pulmonary arteries. Normal visualized aortic arch and descending thoracic aorta. Normal visualized thoracic spine. Normal visualized ribs, clavicles, and shoulders. There is no demonstrated abnormality of the visualized soft tissue structures of the upper abdomen. RAD/Chest 1 View (Portable) IMPRESSION: Stable, nonacute portable x-ray examination of the chest. Electronically Signed: Fernando Henson MD ([place]) at 19:45 EST , Service support ,
--- NOTE | 2020-11-28 19:17 | EKG12_ITS ---
Test Reason : CP Blood Pressure : / mmHG Vent. Rate : 065 BPM Atrial Rate : 065 BPM P-R Int : 178 ms QRS Dur : 102 ms QT Int : 400 ms P-R-T Axes : 046 -03 -21 degrees QTc Int : 416 ms Normal sinus rhythm ST & T wave abnormality, consider anterolateral ischemia Abnormal ECG Confirmed by GINGER RIZO, VENU ([id number]), metropolitan editor KARMEN ORTIZ ([id number]) on 11/30/2020 10:30:56 AM Referred By: LAWSON Confirmed By:VENU MILES MD
--- NOTE | 2020-11-28 19:19 | ED.VISSUMM ---
- ER Visit Summary Date of Service: 11/28/20 Chief Complaint: [Chest pain] History of Present Illness: The patient is a 55 F [presents to the emergency department complaint of chest pain that started an hour ago. Patient states that she was using the bathroom and urinating when the discomfort started. She describes a burning sensation in the center of her chest. Pain is intermittent. She denies radiation of the pain. She is had some nausea but no vomiting. She denies any shortness of breath out of the ordinary. She denies recent travel or surgery. Patient states that she had heart catheterization recently she believes in June of this year which was unremarkable. Patient also states she had a recent echocardiogram. Patient does not know the results of her echocardiogram. Patient denies fever or cough or recent illness. No COVID-19 exposures known. Patient states that she is not sure if this is her anxiety because she does have history of significant anxiety and she thinks this could be her nerves.] Physical Examination: [HEENT-PERRLA, EOMI. Cranial nerves II through XII grossly intact. TMs clear. Mucous membranes moist. No adenopathy. Cardiovascular-regular rate and rhythm without murmur or ectopy Lungs-clear to auscultation, chest wall stable without crepitus or subcu emphysema Abdomen-normoactive bowel sounds, soft, nontender, no rebound or rigidity, no peritoneal signs. Extremities-intact ?4, normal range of motion, normal pulses, atraumatic] Test Results: [EKG obtained on arrival shows sinus rhythm with a ventricular rate of [address] changes noted with diffuse T wave inversions in the anterior. Patient had similar appearance of EKG when compared with EKG from July 16, 2020.] Echo report was unremarkable. Patient had a CBC with differential that was unremarkable. Chemistries unremarkable. Troponin is less than 0.15. D-dimer was normal 0.32. Chest x-ray 1 view interpreted by myself as nothing acute no evidence of pneumothorax, or infiltrate. No effusions noted. Radiology in agreement. Emergency Department Course and Treatment: [Line established on arrival. Patient was given Zofran 4 mg IV for nausea as well as Ativan 1 mg IV. Patient felt markedly improved after treatment.] Treatment Plan: [We will be given a prescription for a few Ativan as needed for anxiety. At this point I do not feel she is having an acute coronary syndrome. Given recent testing and her presentation here chest pain is very atypical and suspect most likely related to anxiety.] Disposition: [Discharged home in stable condition] Impression: [Atypical chest pain Anxiety] This note was generated with [employer] dictation software. It may contain incorrect words, spelling, and punctuation that were not noted in review of the chart prior to signing ED Disposition - Plan for ED Patient: Referrals: Cristal Wolf MD [Primary Care Provider] -
[2020-11-28 19:28] LABS: Absolute Neutrophil Count 5.4 X10^3/uL (2.0-7.7); Basophil# 0.01 X10^3/uL; Basophil% 0.1 % (0-1); Eosinophil# 0.01 X10^3/uL; Eosinophils% 0.1 % (0-5); Hematocrit 36.6 % (37-47); Hemoglobin 11.2 g/dL (12.0-15.0); Lymphocyte % 15.3 % (19-41); Mean Corp Hgb Conc 30.6 g/dL (32-36); Mean Corpuscular Hgb 24.1 pg (27.0-32.0); Mean Corpuscular Volume 78.9 fL (81-99); Mean Platelet Vol. 9.2 fl (6.2-12.0); Monocyte# 0.66 X10^3/uL; Monocyte% 9.2 % (0-10); NRBC Flagged by Analyzer 0 % (0-5); Neutrophil # 5.38 X10^3/uL (2.7-7.7); Platelet Count 196 K/mm3 (150-450); RBC Distribution Width SD 42.7 fl (35.1-43.9); Red Blood Count 4.64 M/mm3 (4.2-5.4); White Blood Count 7.2 K/mm3 (4.4-11.0)
[2020-11-28] MEDS: Aspirin 81 MG TAB.CHEW 324 MG PO (19:31)
[2020-11-28] MEDS: LORazepam 2 MG/ML Syringe 1 MG IV (19:31)
[2020-11-28] MEDS: Ondansetron 4 MG/2 ML Vial IV (19:31)
[2020-11-28 19:39] LABS: D-Dimer Quantitative (DVT/PE) 0.32 FEU/ug/m (0.27-0.49)
[2020-11-28 20:02] LABS: Anion Gap 8 (5-15); BUN 9 mg/dL (7-18); BUN/Creat Ratio 11.9 RATIO (10-20); Calcium,Total 8.6 mg/dL (8.5-10.1); Chloride 101 mmol/L (98-107); Creatinine, Serum 0.75 mg/dL (0.55-1.02); EST Glomerular Filtration Rate 84 mL/min (>60); Est Glom Filt Rate - Afr Amer 102 mL/min (>60); Estimated Creatinine Clearance 68.46 ml/min; Glucose 189 mg/dL (74-106); Potassium 4.1 mmol/L (3.5-5.1); Sodium Level 136 mmol/L (136-145)
--- NOTE | 2020-11-28 20:14 | ED.DEP ---
ED Disposition - Plan for ED Patient: Instructions: ED Chest Pain, Uncertain Cause, ED Panic Attack Prescriptions: Lorazepam [Ativan] 1 mg PO TID PRN #10 tab PRN Reason: Anxiety Prescription Printed Referrals: Cristal Wolf MD [Primary Care Provider] - 3-5 Days
[2020-11-28 20:30] VITALS: BP 160/88; PULSE 60; RESP 18; O2SAT 96
== END 2020-11-28 20:39 | disposition home or self-care (01) ==
PROVIDERS: Emergency Provider Emergency Medicine; PCP Internal Medicine
DX: R07.89 Other chest pain (principal); F41.9 Anxiety disorder, unspecified
CPT/HCPCS: 71045; 80048; 84484; 85025; 85379; 93005; 96361; 96374; 96375; 99285; A4216; J2405

== ENCOUNTER 2020-12-13 17:14 | Emergency (ER) | payer MEDICAID, SELFPAY ==
[2020-12-13 17:16] VITALS: BP 193/114; PULSE 68; RESP 12; TEMP 36.6; O2SAT 97; BMI 52.7
[2020-12-13 17:39] VITALS: BP 184/104
--- NOTE | 2020-12-13 17:40 | RAD_ITS ---
STUDY: X-RAY - ABDOMEN/PELVIS REASON FOR EXAM: Female, 55 years old. CONSTIPATION X6 DAYS TECHNIQUE: Single AP view of the abdomen / pelvis. COMPARISON: None. FINDINGS: Excluded lung bases. There is fecal residue of the right more than left colon. No dilated loops of small bowel. There is no demonstrated free abdominal air. The visualized liver, spleen and kidneys are grossly normal in size and morphology. Normal soft tissue structures. Normal visualized osseous structures. RAD/Abdomen Single View IMPRESSION: Moderate fecal retention, right more than left. Electronically Signed: Fernando Henson MD ([place]) at 18:02 EST , Service support ,
--- NOTE | 2020-12-13 17:43 | ED.VISSUMM ---
- ER Visit Summary Date of Service: 12/13/20 Chief Complaint: Constipation History of Present Illness: The patient is a 55 F presenting with constipation. Patient states she has not had a bowel movement for 6 days. States she is passing gas. She states usually when this happens she needs GoLYTELY. She has tried increasing fiber in her diet, Colace, MiraLAX already at home. She denies fever. Denies nausea or vomiting. Denies other complaints. Physical Examination: Vitals are stable. Patient is afebrile. Alert no acute distress. HEENT exam is unremarkable. Neck is supple. Lungs are clear and equal bilaterally. Heart is regular rate and rhythm. Abdomen is soft obese, nontender. No guarding or rebound Rectal: nontender, no stool impaction Extremities are unremarkable. Skin is warm and dry. Remainder of exam is unremarkable. Emergency Department Course and Treatment: Abdominal x-ray read by myself and radiology shows moderate fecal retention, right more than left. Patient is given GoLYTELY for home. She states she has used this in the past and this is the treatment she prefers. She will follow-up with her primary care physician. Advised return to ED for worsening complaints. Disposition: Discharge home Impression: Constipation This note was generated with [employer] dictation software. It may contain incorrect words, spelling, and punctuation that were not noted in review of the chart prior to signing ED Disposition - Plan for ED Patient: Instructions: ED Constipation (Adult) Referrals: Cristal Wolf MD [Primary Care Provider] -
--- NOTE | 2020-12-13 18:26 | ED.DEP ---
ED Disposition - Plan for ED Patient: Instructions: ED Constipation (Adult) Referrals: Cristal Wolf MD [Primary Care Provider] -
[2020-12-13] MEDS: Electrolyte Solution/Peg's 4000 ML 2000 ML PO (18:37)
[2020-12-13 18:38] VITALS: RESP 18
== END 2020-12-13 18:38 | disposition home or self-care (01) ==
LOC: ED 17:56
PROVIDERS: Emergency Provider Emergency Medicine; PCP Internal Medicine
DX: K59.00 Constipation, unspecified (principal); K58.9 Irritable bowel syndrome, unspecified; Z90.710 Acquired absence of both cervix and uterus
CPT/HCPCS: 74018; 99282

== ENCOUNTER 2021-04-04 12:10 | Emergency (ER) | payer MEDICAID, SELFPAY ==
[2021-04-04 12:11] VITALS: BP 129/61; PULSE 71; RESP 18; TEMP 35.9; O2SAT 95; BMI 51.5
--- NOTE | 2021-04-04 12:16 | CT_ITS ---
EXAM: CT ABDOMEN AND PELVIS WITH INTRAVENOUS CONTRAST : 1965 CLINICAL INDICATION: rlq pain TECHNIQUE: Helically acquired images were obtained of the abdomen and pelvis with intravenous contrast. This CT exam was performed using one or more of the following dose reduction techniques: automated exposure control, adjustment of the mA and/or kV according to patient size, and/or use of iterative reconstruction technique. This report was created using [employer] report generation technology. CONTRAST: IV 100mL Isovue-370 COMPARISON: 09/11/2017 FINDINGS: LOWER THORAX: There is minimal atelectasis in the right lung base. No cardiomegaly. No significant pericardial effusion. ABDOMEN: LIVER: There is decreased attenuation in the liver compatible with fatty infiltration. GALLBLADDER AND BILE DUCTS: Unremarkable. No calcified gallstones. No gallbladder distention or wall edema. No intra- or extrahepatic biliary ductal dilation. PANCREAS: Unremarkable. No focal cystic or solid mass. SPLEEN: Unremarkable. Normal size without focal cystic or solid mass. ADRENALS: Unremarkable. No nodules. KIDNEYS AND URETERS: There are bilateral peripelvic cysts. These are stable from the reference exam. No follow-up imaging necessary There is a nonobstructing calyceal stone in the right kidney. STOMACH AND BOWEL: Unremarkable. No stomach or bowel distention. No focal inflammatory change. PELVIS: APPENDIX: No evidence of acute appendicitis. BLADDER: Unremarkable. REPRODUCTIVE: Unremarkable as visualized. No mass. ABDOMEN and PELVIS: INTRAPERITONEAL SPACE: Unremarkable. No ascites or other fluid collection. No free air. BONES/JOINTS: Unremarkable. No suspicious lytic or blastic abnormality. SOFT TISSUES: Unremarkable. No discrete abdominal or pelvic wall hernia. VASCULATURE: Unremarkable. Abdominal aorta is non-dilated. LYMPH NODES: Unremarkable. No enlarged lymph nodes. CT/Abdomen/Pelvis W IV Cont ONLY IMPRESSION: 1. Bilateral peripelvic cysts. There is no ureteral obstruction. 2. Minimal right basilar atelectasis. 3. No other acute abnormalities in the abdomen or pelvis. Individualized dose optimization techniques were used for this CT. at 1420 Reported and signed by: Jim Augustine MD Electronically Signed: Jim Augustine MD at 14:19 EDT Tel , Service support ,
--- NOTE | 2021-04-04 12:45 | ED.VIS.GI ---
HPI HPI - GI History of Present Illness Chief Complaint: Abd Pain Informant: patient Abdominal Pain/Flank Pain Onset: Days Context: Gradual Onset Timing: Continuous Quality: Aching and Cramping Location: RLQ and LLQ Current Severity: Moderate Maximum Severity: Moderate Nausea/Vomiting/Emesis GI Symptom: Positive for Nausea Diarrhea/Melena/Hematochezia GI Symptom: Positive for Melena Onset: Yesterday Associated Symptoms Associated Symptoms: Negative for Dysuria, Frequency and Hematuria Narrative Narrative: The patient is a 55-year-old female with medical history significant for hypertension, diabetes, irritable bowel disease, who presents to the emergency department abdominal pain. The patient states she is been having it for the past week. She describes cramping across the lower abdomen, worse on the right side. She states that she has been taking Bentyl with little improvement. She states that she also took some Pepto. After taking Pepto, she noticed that her stools were black. She denies any history of prior GI bleed. She is on aspirin but denies taking other anticoagulants. She denies fevers or chills. She denies recent sick contacts. [facility] Medical History ADHD (attention deficit hyperactivity disorder) Arthritis Asthma Back pain Benign hypertension Bipolar disorder Chest pain COPD (chronic obstructive pulmonary disease) Diabetes mellitus type 2, uncontrolled, with complications Essential hypertension Fatigue GERD (gastroesophageal reflux disease) Hemorrhoids Knee pain Migraines Migraines Obstructive sleep apnea Open wound of left lower extremity Pain syndrome, chronic Stasis dermatitis of both legs Super obese Venous insufficiency of both lower extremities Home Medications bupropion HCl 450 mg PO DAILY 03/05/17 [History Last Taken 07/07/18] buspirone 20 mg PO TID 03/05/17 [History Last Taken 07/07/18] nadolol 160 mg PO QHS 03/05/17 [History Last Taken 07/07/18] oxybutynin chloride 15 mg PO QHS 03/05/17 [History Last Taken 07/06/18] omeprazole 10 mg capsule,delayed release 40 mg PO DAILY 02/18/18 [History Last Taken 07/07/18] valacyclovir 1 gram tablet 1,000 mg PO DAILY 02/18/18 [History Last Taken 04/17/18] tramadol 100 mg PO Q6H PRN PRN 03/11/18 [History Last Taken 04/17/18] albuterol sulfate 2 puff INHALATION Q4H PRN PRN 05/29/18 [History Last Taken 07/07/18] glimepiride 2 mg tablet 4 mg PO BID tab 09/20/18 [History Last Taken Unknown] insulin glargine 34 unit SUBCUT DAILY 10/07/18 [History Last Taken Unknown] rizatriptan 5 mg PO DAILY PRN 10/07/18 [History Last Taken Unknown] pregabalin 75 mg PO TID 10/14/18 [History Last Taken Unknown] insulin lispro 0 - 100 unit SQ TIDCM 12/05/18 [History Last Taken Unknown] liraglutide 0.8 mg SQ DAILY 12/05/18 [History Last Taken Unknown] dicyclomine 20 mg PO TIDAC #20 cap 07/28/19 [Rx Last Taken Unknown] escitalopram oxalate 20 mg PO DAILY 08/04/19 [History Last Taken Unknown] fluticasone propionate 2 spray NASAL DAILY 08/04/19 [History Last Taken Unknown] primidone 100 mg PO 4X/DAY 08/04/19 [History Last Taken Unknown] ondansetron 4 mg PO Q8H PRN PRN 09/22/19 [History Last Taken Unknown] paliperidone 9 mg PO DAILY 03/16/20 [History Last Taken Unknown] tizanidine 4 mg PO PRN PRN 07/15/20 [History Last Taken Unknown] aspirin 81 mg PO DAILY@0800 tab.chew 07/17/20 [Rx Last Taken Unknown] lisinopril 20 mg PO DAILY #30 tab 07/17/20 [Rx Last Taken Unknown] quetiapine 100 mg PO QHS 11/22/20 [History Last Taken Unknown] lorazepam 1 mg PO TID PRN #10 tab 11/28/20 [Rx Last Taken Unknown] Allergy/AdvReac Type Severity Reaction Status Date / Time vancomycin Allergy Severe BURNING Verified 04/04/21 12:13 RED RASH ON LEGGS cefazolin sodium [From Ancef] Allergy Hives Verified 04/04/21 12:13 Penicillins Allergy Hives Verified 04/04/21 12:13 sumatriptan [From Imitrex] Allergy Shortness Verified 04/04/21 12:13 of breath ziprasidone [From Geodon] AdvReac NEEDS Verified 04/04/21 12:13 FOLLOW-UP Family History Father CVA (cerebral vascular accident) Heart disease Mother Heart disease Surgical History H/O hernia repair History of arthroscopic knee surgery History of elbow surgery (~06/2020) History of left heart catheterization (07/16/20) Hx of section Hx of hysterectomy Kidney stone Social History Smoking Status: Former smoker alcohol intake: current alcohol intake frequency: holidays/special occasions only Alcohol type: wine substance use type: does not use caffeine: Yes (occasionally) ROS ROS ED Constitutional Constitutional ED: Denies chills or fever(s) Eyes Eyes: Denies blurry vision or change in vision ENT ENT ED: Denies ear pain or sore throat Cardiovascular Cardiovascular: Denies chest pain or palpitations Respiratory/Chest Respiratory/Chest: Denies cough, dyspnea or dyspnea on exertion Gastrointestinal Gastrointestinal: Reports abdominal pain and nausea Genitourinary Genitourinary ED: Denies dysuria or urinary frequency Musculoskeletal Musculoskeletal: Denies arthralgias or myalgias Integumentary Denies rash Neurologic Neurologic: Denies headache(s) or paresthesias Psychiatric Psychiatric: Denies anxiety or depression Endocrine Endocrinology: Denies polydipsia or polyuria Allergic/Immunologic Allergic/Immunologic ED: Denies urticaria EXAM Physical Exam Const Vital Signs: 04/04/21 12:11 04/04/21 14:11 Temperature 96.6 F L Temperature Source Temporal Pulse Rate 71 81 Respiratory Rate 18 18 Blood Pressure 129/61 H 100/67 Blood Pressure Mean 83 78 Pulse Ox 95 97 Oxygen Delivery Method Room Air Room Air Positive well nourished and well developed General Appearance ED: well developed HEENT Reports normocephalic, head/scalp atraumatic and moist mucous membranes Eyes PERRL and EOMs intact bilaterally Neck no lymphadenopathy and supple General: Negative for tenderness Chest Wall inspection of chest normal Resp normal respiratory effort and clear to auscultation bilaterally Cardio regular rate, regular rhythm and no murmurs GI normal to inspection, nondistended, normoactive bowel sounds and non-distended Auscultation: normoactive bowel sounds Palpation: soft and tender; Negative for guarding or rebound tenderness present Back/Spine no CVA tenderness Cervical Spine: Negative for cervical spine tenderness Thoracic Spine / Upper Back: Negative for thoracic spinal tenderness Extremity normal to inspection General Extremety ED: Negative for tenderness Neuro oriented x3 and CN's II-XII intact bilaterally Neuro Narrative: No focal deficits appreciated. Sensorium / Orientation: alert Psych mental status grossly normal Skin no rashes or lesions noted, no wounds and skin turgor normal MDM MDM MDM Narrative Medical decision making narrative: Patient presents with abdominal pain. Is been cramping in nature and sometimes sharp and stabbing. She is tender in bilateral lower quadrants without rebound or guarding. IV was established. Patient was given analgesics and antiemetics with improvement of her symptoms. Screening labs were obtained. These were unremarkable. She has a stable chronic anemia. Liver functions and electrolytes were also unremarkable. Urine shows no evidence of infection. Patient underwent CT imaging. There is no evidence of an acute process that would explain her pain. I do feel this is more likely an exacerbation of her irritable bowel. At this point, the patient be discharged home. She was counseled on concerning symptoms and reasons to return. Impression 1. Nonspecific abdominal pain Lab Data Attestation: I reviewed the patient's lab results. Labs: Laboratory Results - last 24 hr 04/04/21 04/04/21 04/04/21 12:50 12:50 14:01 WBC 5.9 RBC 4.81 Hgb 11.6 L Hct 38.4 MCV 79.8 L MCH 24.1 L MCHC 30.2 L RDW Std Deviation 44.3 H RDW Coeff of Jocy 15.3 H Plt Count 199 MPV 9.6 Immature Gran % (Auto) 0.200 Neut % (Auto) 74.8 H Lymph % (Auto) 15.7 L [place] % (Auto) 9.1 Eos % (Auto) 0.0 Baso % (Auto) 0.2 Absolute Neuts (auto) 4.4 Absolute Lymphs (auto) 0.93 Nucleated RBC % 0 Sodium 134 L Potassium 4.5 Chloride 99 Carbon Dioxide 27.0 Anion Gap 8 BUN 22 H Creatinine 0.94 Estim Creat Clear Calc 59.42 Est GFR (MDRD) Af Amer 79 Est GFR (MDRD) Non-Af 65 BUN/Creatinine Ratio 23.4 H Glucose 252 H Calcium 8.4 L Total Bilirubin 0.30 AST 31 ALT 33 Alkaline Phosphatase 72 Total Protein 6.6 Albumin 3.0 L Globulin 3.6 Albumin/Globulin Ratio 0.8 L Urine Color Yellow Urine Clarity Sl. Cloudy Urine pH 5.0 Ur Specific Rogers 1.010 Urine Protein Negative Urine Glucose (UA) 50 H Urine Ketones Negative Urine Occult Blood Negative Urine Nitrite Negative Urine Bilirubin Negative Urine Urobilinogen Normal Ur Leukocyte Esterase 25 H Urine RBC 0 SEEN Urine WBC 0-5 SEEN Ur Squamous Epith Cells 0 SEEN Urine Bacteria RARE Urine Mucus 0 SEEN Radiography Diagnostic Testing: Radiology Impression Abdomen/Pelvis CT 04/04/21 12:16 IMPRESSION: 1. Bilateral peripelvic cysts. There is no ureteral obstruction. 2. Minimal right basilar atelectasis. 3. No other acute abnormalities in the abdomen or pelvis. Individualized dose optimization techniques were used for this CT. at 1420 Reported and signed by: Jim Augustine MD Electronically Signed: Jim Augustine MD at 14:19 EDT Tel , Service support , Discharge Plan Triage Chief Complaint: Abd Pain ED Provider: Lamont Morales Dx/Rx/DC Orders Instructions: ED Abdominal Pain Unkn Cause Fem Prescriptions: No Action valacyclovir 1 gram tablet 1,000 mg PO DAILY RF: 0 omeprazole 10 mg capsule,delayed release(DR/EC) 40 mg PO DAILY RF: 0 oxybutynin chloride 15 MG tablet extended release 24 hr 15 mg PO QHS RF: 0 nadolol 80 MG tablet 160 mg PO QHS RF: 0 buspirone 10 MG tablet 20 mg PO TID RF: 0 bupropion HCl 300 MG tablet extended release 24 hr 450 mg PO DAILY RF: 0 tramadol 50 MG tablet 100 mg PO Q6H PRN PRN (Reason: Pain) RF: 0 albuterol sulfate 1 INHALER inhaler 2 puff INHALATION Q4H PRN PRN (Reason: Sob &/Or Wheezing) RF: 0 insulin glargine 100 UNIT/ML insulin pen 34 unit subcut DAILY RF: 0 rizatriptan 5 MG tablet,disintegrating 5 mg PO DAILY PRN (Reason: Migraine Symptoms) RF: 0 pregabalin 75 MG capsule 75 mg PO TID RF: 0 insulin lispro 100 UNIT/ML insulin pen 0 - 100 unit SQ TIDCM RF: 0 liraglutide 0.6 MG/0.1 ML pen injector 0.8 mg SQ DAILY RF: 0 dicyclomine 10 MG capsule 20 mg PO TIDAC Qty: 20 RF: 0 primidone 50 MG tablet 100 mg PO 4X/DAY RF: 0 fluticasone propionate 1 SPRAY spray,suspension 2 spray NASAL DAILY RF: 0 escitalopram oxalate 10 MG tablet 20 mg PO DAILY RF: 0 ondansetron 4 MG tablet 4 mg PO Q8H PRN PRN (Reason: Nausea) RF: 0 paliperidone 6 MG tablet 9 mg PO DAILY RF: 0 tizanidine 4 MG capsule 4 mg PO PRN PRN (Reason: Muscle Spasm) RF: 0 lisinopril 20 MG tablet 20 mg PO DAILY Qty: 30 RF: 2 aspirin 81 MG tablet,chewable 81 mg PO DAILY@0800 RF: 0 quetiapine 100 MG tablet 100 mg PO QHS RF: 0 lorazepam 1 MG tablet 1 mg PO TID PRN (Reason: Anxiety) Qty: 10 RF: 0 glimepiride 2 mg tablet 4 mg PO BID RF: 0 Primary Care Provider: Cristal Wolf Referrals: Cristal Wolf MD [Primary Care Provider] -
[2021-04-04] MEDS: Morphine 4 MG/ML Syringe IV ×2 (12:52→14:32)
[2021-04-04] MEDS: 0.9% Normal Saline 1,000 ML 1000 ML IV (12:55)
[2021-04-04] MEDS: Ondansetron 4 MG/2 ML Vial IV (12:56)
[2021-04-04 13:01] LABS: Absolute Lymphocyte Count 0.93 X10^3/uL (0.83-4.51); Absolute Neutrophil Count 4.4 X10^3/uL (2.0-7.7); Basophil# 0.01 X10^3/uL; Basophil% 0.2 % (0-1); Hematocrit 38.4 % (37-47); Hemoglobin 11.6 g/dL (12.0-15.0); Lymphocyte # 0.93 X10^3/ul (0.83-4.51); Lymphocyte % 15.7 % (19-41); Mean Corp Hgb Conc 30.2 g/dL (32-36); Mean Corpuscular Hgb 24.1 pg (27.0-32.0); Mean Corpuscular Volume 79.8 fL (81-99); Mean Platelet Vol. 9.6 fl (6.2-12.0); Monocyte# 0.54 X10^3/uL; Monocyte% 9.1 % (0-10); NRBC Flagged by Analyzer 0 % (0-5); Neutrophil # 4.42 X10^3/uL (2.7-7.7); Neutrophil % 74.8 % (47-70); Platelet Count 199 K/mm3 (150-450); RBC Distribution Width CV 15.3 % (11.6-14.6); RBC Distribution Width SD 44.3 fl (35.1-43.9); Red Blood Count 4.81 M/mm3 (4.2-5.4); White Blood Count 5.9 K/mm3 (4.4-11.0)
[2021-04-04 13:18] LABS: ALB/GLOB Ratio 0.8 RATIO (0.9-2.4); AST(SGOT) 31 U/L (15-37); Alanine Aminotransfer ALT/SGPT 33 U/L (13-56); Alkaline Phosphatase 72 U/L (45-117); Anion Gap 8 (5-15); BUN 22 mg/dL (7-18); BUN/Creat Ratio 23.4 RATIO (10-20); Calcium,Total 8.4 mg/dL (8.5-10.1); Chloride 99 mmol/L (98-107); Creatinine, Serum 0.94 mg/dL (0.55-1.02); EST Glomerular Filtration Rate 65 mL/min (>60); Est Glom Filt Rate - Afr Amer 79 mL/min (>60); Estimated Creatinine Clearance 59.42 ml/min; Globulin 3.6 g/dL (2.2-4.2); Glucose 252 mg/dL (74-106); Potassium 4.5 mmol/L (3.5-5.1); Protein, Total 6.6 g/dL (6.4-8.2); Sodium Level 134 mmol/L (136-145)
--- NOTE | 2021-04-04 13:32 | ED.RN ---
pt up to bathroom. unable to give sample
[2021-04-04 14:06] LABS: Mucous, Urine 0 SEEN /hpf (<or=2+); Red Blood Cells-Urine 0 SEEN /hpf (0-5); Squamous Epithelial Cells - UA 0 SEEN /hpf (5-10)
[2021-04-04 14:10] LABS: Color, Urine Yellow (Yellow); Glucose, Dipstick 50 mg/dl (Normal); Ketone-Dipstick Negative (Negative); Leukocyte Esterase-Dipstick 25 /ul (Negative); Nitrite-Dipstick Negative (Negative); Occult Blood-Urine Negative /ul (Negative); Protein-Dipstick Negative (Negative); Urine Bilirubin Dipstick Negative (Negative); Urine Clarity Sl. Cloudy (Clear); Urine Urobilinogen Normal (Normal)
[2021-04-04 14:11] VITALS: BP 100/67; PULSE 81; RESP 18; O2SAT 97
[2021-04-04 14:16] LABS: White Blood Cells 0-5 SEEN /hpf (0-5)
[2021-04-04 14:17] LABS: Bacteria RARE /hpf (None Seen)
== END 2021-04-04 14:57 | disposition home or self-care (01) ==
LOC: ED 12:31
PROVIDERS: Emergency Provider Emergency Medicine; PCP Internal Medicine
DX: R10.9 Unspecified abdominal pain (principal); Z87.891 Personal history of nicotine dependence; G47.33 Obstructive sleep apnea (adult) (pediatric); F90.9 Attention-deficit hyperactivity disorder, unspecified type; I10 Essential (primary) hypertension; J44.9 Chronic obstructive pulmonary disease, unspecified; E11.9 Type 2 diabetes mellitus without complications; K21.9 Gastro-esophageal reflux disease without esophagitis; F31.9 Bipolar disorder, unspecified; I87.2 Venous insufficiency (chronic) (peripheral); K58.0 Irritable bowel syndrome with diarrhea; Z79.4 Long term (current) use of insulin; Z79.82 Long term (current) use of aspirin; Z79.899 Other long term (current) drug therapy
CPT/HCPCS: 74177; 80053; 81001; 85025; 96361; 96374; 96375; 96376; 99285; J7030; Q9967; A4216; J2405

== ENCOUNTER 2021-04-21 09:20 | Emergency (ER) | payer MEDICAID, SELFPAY ==
[2021-04-21 09:20] VITALS: BP 114/79; PULSE 69; RESP 15; TEMP 35.8; O2SAT 93; BMI 53.2
--- NOTE | 2021-04-21 09:52 | RAD_ITS ---
STUDY: X-RAY - LEFT TIBIA AND FIBULA REASON FOR EXAM: Female, 55 years old. Atraumatic pain TECHNIQUE: 4 view(s) of the tibia and fibula were obtained. COMPARISON: Comparison is made with prior examination dated 10/14/2018. FINDINGS: Normal visualized tibia. Normal visualized fibula. Marked degree of joint space narrowing and degenerative changes of the patellofemoral joint. No significant joint effusion is seen. Diffuse soft tissue swelling. Once again, there is diffuse extensive soft tissue calcification overlying the anterior medial aspect of the catheter. This is unchanged. 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 RAD/Tibia & Fibula 2 Views IMPRESSION: Stable examination. Electronically Signed: Kevin Gaxiola MD at 11:08 EDT , Service support ,
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
--- NOTE | 2021-04-21 10:02 | VDLE_ITS ---
Reason For Study: Pain Procedure LEFT This is a venous duplex using B-mode, color GSV is normal. flow and spectral Doppler. CFV is compressible, spontaneous, phasic, Exam performed portable in ED. competent, and demonstrates normal A preliminary report was called and/or faxed augmentation. to [facility]. FV is compressible, spontaneous, phasic, competent and demonstrates normal augmentation. POP V is compressible, spontaneous, phasic, competent and demonstrates normal augmentation. T/P Trunk is compressible. PTV is compressible. LT PerV is compressible. VL/Venous Duplex US, Unilateral Interpretation Summary There is no evidence of left lower extremity deep vein thrombosis. Left great s aphenous vein appears patent and compressible segmentally. Ordering Physician: Oni Lester Referring Physician: Cristal Wolf M.D. Performed By: Estella Devlin RVT
[2021-04-21 10:20] LABS: Absolute Lymphocyte Count 0.69 X10^3/uL (0.83-4.51); Hematocrit 33.1 % (37-47); Hemoglobin 10.1 g/dL (12.0-15.0); Lymphocyte # 0.69 X10^3/ul (0.83-4.51); Lymphocyte % 13.5 % (19-41); Mean Corp Hgb Conc 30.5 g/dL (32-36); Mean Corpuscular Hgb 24.3 pg (27.0-32.0); Mean Corpuscular Volume 79.8 fL (81-99); Mean Platelet Vol. 9.9 fl (6.2-12.0); Monocyte# 0.45 X10^3/uL; Monocyte% 8.8 % (0-10); NRBC Flagged by Analyzer 0 % (0-5); Neutrophil # 3.96 X10^3/uL (2.7-7.7); Neutrophil % 77.1 % (47-70); Platelet Count 141 K/mm3 (150-450); RBC Distribution Width CV 15.4 % (11.6-14.6); RBC Distribution Width SD 44.5 fl (35.1-43.9); Red Blood Count 4.15 M/mm3 (4.2-5.4); White Blood Count 5.1 K/mm3 (4.4-11.0)
[2021-04-21 10:30] LABS: Anion Gap 4 (5-15); BUN 10 mg/dL (7-18); BUN/Creat Ratio 11.5 RATIO (10-20); Calcium,Total 8.6 mg/dL (8.5-10.1); Chloride 99 mmol/L (98-107); Creatinine, Serum 0.87 mg/dL (0.55-1.02); EST Glomerular Filtration Rate 72 mL/min (>60); Est Glom Filt Rate - Afr Amer 87 mL/min (>60); Glucose 342 mg/dL (74-106); Potassium 4.7 mmol/L (3.5-5.1); Sodium Level 131 mmol/L (136-145)
[2021-04-21] MEDS: Ondansetron 4 MG/2 ML Vial IV (10:38)
[2021-04-21] MEDS: morphine 8 MG/ML Syringe 6 MG IV (10:38)
[2021-04-21] MEDS: Cephalexin 250 MG Capsule 500 MG PO (11:51)
[2021-04-21 11:53] VITALS: BP 132/73; PULSE 88; RESP 16; O2SAT 97
== END 2021-04-21 11:57 | disposition home or self-care (01) ==
PROVIDERS: Emergency Provider Emergency Medicine; PCP Internal Medicine
DX: L03.90 Cellulitis, unspecified (principal); M17.12 Unilateral primary osteoarthritis, left knee; E11.9 Type 2 diabetes mellitus without complications; I87.8 Other specified disorders of veins; Z87.891 Personal history of nicotine dependence; J44.9 Chronic obstructive pulmonary disease, unspecified; F90.9 Attention-deficit hyperactivity disorder, unspecified type; I10 Essential (primary) hypertension; G47.33 Obstructive sleep apnea (adult) (pediatric)
CPT/HCPCS: 73590; 80048; 85025; 93971; 96374; 96375; 99285; A4216; J2405

== ENCOUNTER 2021-06-13 16:53 | Emergency (ER) | payer MEDICAID, SELFPAY ==
[2021-06-13 16:54] VITALS: PULSE 69; RESP 16; RESP 18; TEMP 36.8; O2SAT 97; BMI 51.4
--- NOTE | 2021-06-13 17:27 | RAD_ITS ---
STUDY: X-RAY CHEST REASON FOR EXAM: Female, 55 years old. Palpitations TECHNIQUE: AP COMPARISON: 11/28/2020 FINDINGS: EKG leads project over the chest. Right hemidiaphragm is elevated, stable. No airspace consolidation. There is no demonstrated pleural abnormality. Normal size heart. Normal mediastinum and keli. Normal visualized pulmonary arteries. Normal visualized aortic arch and descending thoracic aorta. There are diffuse degenerative changes of the visualized thoracic spine. Normal visualized ribs, clavicles, and shoulders. There is no demonstrated abnormality of the visualized soft tissue structures of the upper abdomen. RAD/Chest 1 View (Portable) IMPRESSION: Stable, nonacute portable x-ray examination of the chest. Electronically Signed: Fernando Henson MD ([place]) at 17:47 EDT , Service support ,
--- NOTE | 2021-06-13 17:28 | EKG12_ITS ---
Test Reason : PALPS Blood Pressure : / mmHG Vent. Rate : 074 BPM Atrial Rate : 074 BPM P-R Int : 176 ms QRS Dur : 102 ms QT Int : 376 ms P-R-T Axes : 056 -18 -19 degrees QTc Int : 417 ms Normal sinus rhythm Incomplete right bundle branch block ST & T wave abnormality, consider anterior ischemia Abnormal ECG Confirmed by AMY RIZO, NICHOLAS ([id number]), movie editor KARMEN ORTIZ ([id number]) on 06/15/2021 10:32:09 AM Referred By: ANGIE/MARISELA Confirmed By:NICHOLAS REYES MD
[2021-06-13 17:36] LABS: Absolute Lymphocyte Count 0.74 X10^3/uL (0.83-4.51); Absolute Neutrophil Count 3.7 X10^3/uL (2.0-7.7); Hematocrit 36.1 % (37-47); Hemoglobin 11.2 g/dL (12.0-15.0); Lymphocyte # 0.74 X10^3/ul (0.83-4.51); Lymphocyte % 15.2 % (19-41); Mean Corpuscular Hgb 24.2 pg (27.0-32.0); Mean Platelet Vol. 9.6 fl (6.2-12.0); Monocyte# 0.42 X10^3/uL; Monocyte% 8.6 % (0-10); NRBC Flagged by Analyzer 0 % (0-5); Neutrophil # 3.69 X10^3/uL (2.7-7.7); Neutrophil % 75.8 % (47-70); Platelet Count 187 K/mm3 (150-450); RBC Distribution Width CV 15.3 % (11.6-14.6); RBC Distribution Width SD 42.6 fl (35.1-43.9); Red Blood Count 4.63 M/mm3 (4.2-5.4); White Blood Count 4.9 K/mm3 (4.4-11.0)
[2021-06-13 17:55] LABS: Anion Gap 5 (5-15); BUN 7 mg/dL (7-18); BUN/Creat Ratio 8.4 RATIO (10-20); Calcium,Total 8.8 mg/dL (8.5-10.1); Chloride 98 mmol/L (98-107); Creatinine, Serum 0.83 mg/dL (0.55-1.02); EST Glomerular Filtration Rate 75 mL/min (>60); Est Glom Filt Rate - Afr Amer 91 mL/min (>60); Estimated Creatinine Clearance 67.29 ml/min; Glucose 340 mg/dL (74-106); Magnesium 1.7 mg/dL (1.6-2.6); Potassium 4.2 mmol/L (3.5-5.1); Sodium Level 132 mmol/L (136-145); Troponin-I HS 4.7 pg/mL (3.0-53.7)
--- NOTE | 2021-06-13 17:55 | EDS_ITS ---
HPI History of Present Illness Chief Complaint: Palpitations Informant: patient Narrative Narrative: Patient is a 55-year-old female with a history of hypertension, CHF who presents to the emergency department for palpitations. She has had this for 2 days. She feels like it is progressively getting worse. She is about 5 episodes per hour. Feels like it takes her breath away but then her heart gets back up and goes back to normal. She has never had this before. She denies any chest pain associated with this. No recent illness. No complaints otherwise. She denies any leg swelling or calf pain. No history of heart attacks or blood clots. She denies any recent illness including any diarrhea, nausea/vomiting. No fevers or chills. [facility] Medical History (Updated 06/13/21 @ 19:[address] Jose Enrique Xiong ) ADHD (attention deficit hyperactivity disorder) Arthritis Asthma Back pain Benign hypertension Bipolar disorder Chest pain COPD (chronic obstructive pulmonary disease) Diabetes mellitus type 2, uncontrolled, with complications Essential hypertension Fatigue GERD (gastroesophageal reflux disease) Hemorrhoids Knee pain Migraines Migraines Obstructive sleep apnea Open wound of left lower extremity Pain syndrome, chronic Stasis dermatitis of both legs Super obese Venous insufficiency of both lower extremities Home Medications bupropion HCl 450 mg PO DAILY 03/05/17 [History Last Taken 07/07/18] buspirone 20 mg PO TID 03/05/17 [History Last Taken 07/07/18] nadolol 160 mg PO QHS 03/05/17 [History Last Taken 07/07/18] oxybutynin chloride 15 mg PO QHS 03/05/17 [History Last Taken 07/06/18] omeprazole 10 mg capsule,delayed release 40 mg PO DAILY 02/18/18 [History Last Taken 07/07/18] valacyclovir 1 gram tablet 1,000 mg PO DAILY 02/18/18 [History Last Taken 04/17/18] tramadol 100 mg PO Q6H PRN PRN 03/11/18 [History Last Taken 04/17/18] albuterol sulfate 2 puff INHALATION Q4H PRN PRN 05/29/18 [History Last Taken 07/07/18] glimepiride 2 mg tablet 4 mg PO BID tab 09/20/18 [History Last Taken Unknown] insulin glargine 34 unit SUBCUT DAILY 10/07/18 [History Last Taken Unknown] rizatriptan 5 mg PO DAILY PRN 10/07/18 [History Last Taken Unknown] pregabalin 75 mg PO TID 10/14/18 [History Last Taken Unknown] insulin lispro 0 - 100 unit SQ TIDCM 12/05/18 [History Last Taken Unknown] liraglutide 0.8 mg SQ DAILY 12/05/18 [History Last Taken Unknown] dicyclomine 20 mg PO TIDAC #20 cap 07/28/19 [Rx Last Taken Unknown] escitalopram oxalate 20 mg PO DAILY 08/04/19 [History Last Taken Unknown] fluticasone propionate 2 spray NASAL DAILY 08/04/19 [History Last Taken Unknown] primidone 100 mg PO 4X/DAY 08/04/19 [History Last Taken Unknown] ondansetron 4 mg PO Q8H PRN PRN 09/22/19 [History Last Taken Unknown] paliperidone 9 mg PO DAILY 03/16/20 [History Last Taken Unknown] tizanidine 4 mg PO PRN PRN 07/15/20 [History Last Taken Unknown] aspirin 81 mg PO DAILY@0800 tab.chew 07/17/20 [Rx Last Taken Unknown] lisinopril 20 mg PO DAILY #30 tab 07/17/20 [Rx Last Taken Unknown] quetiapine 100 mg PO QHS 11/22/20 [History Last Taken Unknown] lorazepam 1 mg PO TID PRN #10 tab 11/28/20 [Rx Last Taken Unknown] cephalexin 500 mg PO Q6H #40 cap 04/21/21 [Rx Last Taken Unknown] insulin glargine [Lantus Solostar U-100 Insulin] 36 unit SUBCUT QHS 06/13/21 [History Last Taken Unknown] Allergy/AdvReac Type Severity Reaction Status Date / Time vancomycin Allergy Severe BURNING Verified 04/21/21 09:22 RED RASH ON LEGGS cefazolin sodium [From Ancef] Allergy Hives Verified 04/21/21 09:22 Penicillins Allergy Hives Verified 04/21/21 09:22 sumatriptan [From Imitrex] Allergy Shortness Verified 04/21/21 09:22 of breath ziprasidone [From Geodon] AdvReac NEEDS Verified 04/21/21 09:22 FOLLOW-UP Family History Father CVA (cerebral vascular accident) Heart disease Mother Heart disease Surgical History H/O hernia repair History of arthroscopic knee surgery History of elbow surgery (~06/2020) History of left heart catheterization (07/16/20) Hx of section Hx of hysterectomy Kidney stone Social History Smoking Status: Former smoker alcohol intake: current alcohol intake frequency: holidays/special occasions only Alcohol type: wine substance use type: does not use caffeine: Yes (occasionally) ROS ROS ED Constitutional Constitutional ED: Denies chills or fever(s) Eyes Eyes: Denies change in vision ENT ENT ED: Denies epistaxis or rhinorrhea Cardiovascular Cardiovascular: Reports palpitations; Denies chest pain Respiratory/Chest Respiratory/Chest: Denies cough, dyspnea or dyspnea on exertion Gastrointestinal Gastrointestinal: Denies abdominal pain, diarrhea, nausea or vomiting Genitourinary Genitourinary ED: Denies dysuria, hematuria or urinary frequency Musculoskeletal Musculoskeletal: Denies back pain or neck pain Integumentary Denies rash Neurologic Neurologic: Denies dizziness, headache(s) or weakness EXAM Physical Exam Const Vital Signs: 06/13/21 16:54 06/13/21 16:58 Temperature 98.2 F Temperature Source Temporal Pulse Rate 69 Respiratory Rate 16 Respiratory Effort Normal Non-Labored Pulse Ox 97 Oxygen Delivery Method Room Air Positive well nourished and well developed General Appearance ED: well developed and NAD HEENT Reports normocephalic, head/scalp atraumatic and moist mucous membranes Eyes PERRL and EOMs intact bilaterally Neck supple Chest Wall inspection of chest normal Resp normal respiratory effort and clear to auscultation bilaterally Auscultation: Negative for rales, rhonchi or wheezes Cardio regular rate, regular rhythm and no murmurs GI normal to inspection, nondistended, normoactive bowel sounds and non-tender Palpation: soft; Negative for guarding or rebound tenderness present Extremity normal to inspection General Extremety ED: Negative for edema or tenderness General Extremity: Negative for edema Neuro oriented x3, CN's II-XII intact bilaterally and no sensory deficits noted Sensorium / Orientation: alert Motor Exam: strength 5/5 throughout Psych mental status grossly normal Skin no rashes or lesions noted MDM MDM MDM Narrative Medical decision making narrative: Patient presents the ED for intermittent palpitations over the past 2 days. No significant shortness of breath or chest pain. On arrival to the ED her vital signs are within normal limits. She is in no acute distress. The emergency medical technician did witness a PVC but did not capture it on the EKG. She was symptomatic with this. Will check basic lab work and chest x-ray. Patient's lab work showed her to be mildly anemic which is consistent with her previous lab work-up. Her glucose is elevated at 340. Her sodium is mildly low which is similar to previous lab draws. Her troponin is well within normal limits. Her chest x-ray did not reveal any acute cardiopulmonary abnormality. At this time I believe her palpitations are coming from the PVCs. She does not have any long runs of this. I believe she is stable for discharge. 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 Return precautions are reviewed with her. She understands and is agreeable to plan. All questions are answered. Lab Data Labs: Laboratory Results - last 24 hr 06/13/21 06/13/21 17:20 17:20 WBC 4.9 RBC 4.63 Hgb 11.2 L Hct 36.1 L MCV 78.0 L MCH 24.2 L MCHC 31.0 L RDW Std Deviation 42.6 RDW Coeff of Jocy 15.3 H Plt Count 187 MPV 9.6 Immature Gran % (Auto) 0.400 Neut % (Auto) 75.8 H Lymph % (Auto) 15.2 L [place] % (Auto) 8.6 Eos % (Auto) 0.0 Baso % (Auto) 0.0 Absolute Neuts (auto) 3.7 Absolute Lymphs (auto) 0.74 L Nucleated RBC % 0 Sodium 132 L Potassium 4.2 Chloride 98 Carbon Dioxide 29.0 Anion Gap 5 BUN 7 Creatinine 0.83 Estim Creat Clear Calc 67.29 Est GFR (MDRD) Af Amer 91 Est GFR (MDRD) Non-Af 75 BUN/Creatinine Ratio 8.4 L Glucose 340 H Calcium 8.8 Magnesium 1.7 Troponin I High Sens 4.7 Radiography Diagnostic Testing: Radiology Impression Chest X-Ray 06/13/21 17:27 IMPRESSION: Stable, nonacute portable x-ray examination of the chest. Electronically Signed: Fernando Henson MD ([place]) at 17:47 EDT , Service support , EKG Initial EKG: Attestation: I personally reviewed and interpreted this EKG as follows: (Rate of 74 bpm normal sinus rhythm. Normal intervals. Left axis deviation. There are some T wave inversions throughout. No significant ST elevations or depressions. This is similar to appearance to her previous EKGs.) Discharge Plan Triage Chief Complaint: Palpitations ED Provider: Jose Enrique Xiong Dx/Rx/DC Orders Clinical Impression: Heart palpitations Instructions: Premature Ventricular Contractions Prescriptions: No Action valacyclovir 1 gram tablet 1,000 mg PO DAILY RF: 0 omeprazole 10 mg capsule,delayed release(DR/EC) 40 mg PO DAILY RF: 0 oxybutynin chloride 15 MG tablet extended release 24 hr 15 mg PO QHS RF: 0 nadolol 80 MG tablet 160 mg PO QHS RF: 0 buspirone 10 MG tablet 20 mg PO TID RF: 0 bupropion HCl 300 MG tablet extended release 24 hr 450 mg PO DAILY RF: 0 tramadol 50 MG tablet 100 mg PO Q6H PRN PRN (Reason: Pain) RF: 0 albuterol sulfate 1 INHALER inhaler 2 puff INHALATION Q4H PRN PRN (Reason: Sob &/Or Wheezing) RF: 0 insulin glargine 100 UNIT/ML insulin pen 34 unit subcut DAILY RF: 0 rizatriptan 5 MG tablet,disintegrating 5 mg PO DAILY PRN (Reason: Migraine Symptoms) RF: 0 pregabalin 75 MG capsule 75 mg PO TID RF: 0 insulin lispro 100 UNIT/ML insulin pen 0 - 100 unit SQ TIDCM RF: 0 liraglutide 0.6 MG/0.1 ML pen injector 0.8 mg SQ DAILY RF: 0 dicyclomine 10 MG capsule 20 mg PO TIDAC Qty: 20 RF: 0 primidone 50 MG tablet 100 mg PO 4X/DAY RF: 0 fluticasone propionate 1 SPRAY spray,suspension 2 spray NASAL DAILY RF: 0 escitalopram oxalate 10 MG tablet 20 mg PO DAILY RF: 0 ondansetron 4 MG tablet 4 mg PO Q8H PRN PRN (Reason: Nausea) RF: 0 paliperidone 6 MG tablet 9 mg PO DAILY RF: 0 tizanidine 4 MG capsule 4 mg PO PRN PRN (Reason: Muscle Spasm) RF: 0 lisinopril 20 MG tablet 20 mg PO DAILY Qty: 30 RF: 2 aspirin 81 MG tablet,chewable 81 mg PO DAILY@0800 RF: 0 quetiapine 100 MG tablet 100 mg PO QHS RF: 0 lorazepam 1 MG tablet 1 mg PO TID PRN (Reason: Anxiety) Qty: 10 RF: 0 cephalexin 500 mg capsule 500 mg PO Q6H Qty: 40 RF: 0 Lantus Solostar U-100 Insulin 100 unit/mL (3 mL) insulin pen 36 unit SUBCUT QHS RF: 0 glimepiride 2 mg tablet 4 mg PO BID RF: 0 Primary Care Provider: Cristal Wolf Referrals: Cristal Wolf MD [Primary Care Provider] - 2 Days Activity Restrictions/Additional Instructions: Please follow-up with your soil conservation teacher as soon as possible. Disposition Disposition: Home, Self Care Discharge Date/Time: 06/13/21 19:37
[2021-06-13 19:36] VITALS: BP 170/89; PULSE 70; RESP 16; O2SAT 96
== END 2021-06-13 19:37 | disposition home or self-care (01) ==
PROVIDERS: Emergency Provider Emergency Medicine; PCP Internal Medicine
DX: I49.3 Ventricular premature depolarization (principal); I11.0 Hypertensive heart disease with heart failure; I50.9 Heart failure, unspecified; R00.2 Palpitations; J44.9 Chronic obstructive pulmonary disease, unspecified; E11.65 Type 2 diabetes mellitus with hyperglycemia; G89.4 Chronic pain syndrome; G43.909 Migraine, unspecified, not intractable, without status migrainosus; M19.90 Unspecified osteoarthritis, unspecified site; I87.2 Venous insufficiency (chronic) (peripheral); G47.33 Obstructive sleep apnea (adult) (pediatric); F90.9 Attention-deficit hyperactivity disorder, unspecified type; F31.9 Bipolar disorder, unspecified; K21.9 Gastro-esophageal reflux disease without esophagitis; E66.09 Other obesity due to excess calories; Z79.82 Long term (current) use of aspirin; Z79.4 Long term (current) use of insulin; Z79.899 Other long term (current) drug therapy; Z87.891 Personal history of nicotine dependence
CPT/HCPCS: 71045; 80048; 83735; 84484; 85025; 93005; 96360; 99284; J7040; A4216

== ENCOUNTER → 2021-06-21 11:12 | Outpatient (CLI) | payer MEDICAID, SELFPAY ==
[2021-06-21 08:43] VITALS: BMI 50.5
[2021-06-21 12:18] LABS: Thyroid Stim Hormone (TSH) 0.65 uIU/mL (0.358-3.74)
== END ==
PROVIDERS: PCP Internal Medicine; Visit Provider Nurse Practitioner Gerontology
DX: R00.2 Palpitations (principal)
CPT/HCPCS: 36415; 84443

== ENCOUNTER 2021-06-25 16:02 | Emergency (ER) | payer MEDICAID, SELFPAY ==
[2021-06-21 08:43] VITALS: BMI 50.5
[2021-06-25 16:03] VITALS: BP 150/82; PULSE 80; RESP 17; TEMP 36.1; O2SAT 90; BMI 50.0
[2021-06-25 16:07] VITALS: O2SAT 92
--- NOTE | 2021-06-25 16:09 | EKG12_ITS ---
Test Reason : Blood Pressure : / mmHG Vent. Rate : 077 BPM Atrial Rate : 077 BPM P-R Int : 174 ms QRS Dur : 102 ms QT Int : 380 ms P-R-T Axes : 044 -21 -28 degrees QTc Int : 430 ms Normal sinus rhythm Incomplete right bundle branch block ST & T wave abnormality, consider anterolateral ischemia ST/T wave abnormality, consider inferior ischemia Abnormal ECG Confirmed by AMY RIZO, NICHOLAS ([id number]), television news video editor KARMEN ORTIZ ([id number]) on 06/29/2021 9:00:09 AM Referred By: MARY Confirmed By:NICHOLAS REYES MD
[2021-06-25 16:16] VITALS: O2SAT 92
--- NOTE | 2021-06-25 16:17 | ED.VIS.CHEST ---
HPI History of Present Illness Chief Complaint: Chest Pain Informant: patient Onset/Context/Timing Onset: Today and Hours Activity at onset: gradual Timing: Continuous Quality: Positive for Dull Location: Right Parasternal and Left Parasternal Current Severity: Mild Maximum Severity: Mild Worsened By: Exertion; Not Worsened By Movement of Arm, Movement of Torso, Eating, Palpation, Breathing and Coughing Relieved By: Nothing Associated Symptoms: Positive for Nausea and Dyspnea; Negative for Vomiting, Diaphoresis, Cough, Fever, Lightheadedness and Acid Reflux Narrative Prior Similar Symptoms: No Recent Illness/Hospitalization: No CVD Risk Factors: Positive for Diabetes; Negative for Hypertension and Smoking PE Risk Factors: Positive for Prior DVT or PE; Negative for Recent Travel/Surgery, Recent Immobilization, Cancer and OCP + Smoking + >/=35 TAD Risk Factors: Positive for Hypertension; Negative for Marfan's Syndrome [facility] Medical History (Updated 06/25/21 @ 17:[address] Oni Lester MD) ADHD (attention deficit hyperactivity disorder) Arthritis Asthma Back pain Benign hypertension Bipolar disorder Chest pain COPD (chronic obstructive pulmonary disease) Diabetes mellitus type 2, uncontrolled, with complications Essential hypertension Fatigue GERD (gastroesophageal reflux disease) Hemorrhoids Knee pain Migraines Migraines Obstructive sleep apnea Open wound of left lower extremity Pain syndrome, chronic Stasis dermatitis of both legs Super obese Venous insufficiency of both lower extremities Home Medications bupropion HCl 450 mg PO DAILY 03/05/17 [History Last Taken 07/07/18] buspirone 20 mg PO TID 03/05/17 [History Last Taken 07/07/18] nadolol 160 mg PO QHS 03/05/17 [History Last Taken 07/07/18] oxybutynin chloride 15 mg PO QHS 03/05/17 [History Last Taken 07/06/18] omeprazole 10 mg capsule,delayed release 40 mg PO DAILY 02/18/18 [History Last Taken 07/07/18] valacyclovir 1 gram tablet 1,000 mg PO DAILY 02/18/18 [History Last Taken 04/17/18] tramadol 100 mg PO Q6H PRN PRN 03/11/18 [History Last Taken 04/17/18] albuterol sulfate 2 puff INHALATION Q4H PRN PRN 05/29/18 [History Last Taken 07/07/18] glimepiride 2 mg tablet 4 mg PO BID tab 09/20/18 [History Last Taken Unknown] insulin glargine 34 unit SUBCUT DAILY 10/07/18 [History Last Taken Unknown] rizatriptan 5 mg PO DAILY PRN 10/07/18 [History Last Taken Unknown] pregabalin 75 mg PO TID 10/14/18 [History Last Taken Unknown] insulin lispro 0 - 100 unit SQ TIDCM 12/05/18 [History Last Taken Unknown] liraglutide 0.8 mg SQ DAILY 12/05/18 [History Last Taken Unknown] dicyclomine 20 mg PO TIDAC #20 cap 07/28/19 [Rx Last Taken Unknown] escitalopram oxalate 20 mg PO DAILY 08/04/19 [History Last Taken Unknown] fluticasone propionate 2 spray NASAL DAILY 08/04/19 [History Last Taken Unknown] primidone 100 mg PO 4X/DAY 08/04/19 [History Last Taken Unknown] ondansetron 4 mg PO Q8H PRN PRN 09/22/19 [History Last Taken Unknown] paliperidone 9 mg PO DAILY 03/16/20 [History Last Taken Unknown] tizanidine 4 mg PO PRN PRN 07/15/20 [History Last Taken Unknown] aspirin 81 mg PO DAILY@0800 tab.chew 07/17/20 [Rx Last Taken Unknown] lisinopril 20 mg PO DAILY #30 tab 07/17/20 [Rx Last Taken Unknown] quetiapine 100 mg PO QHS 11/22/20 [History Last Taken Unknown] lorazepam 1 mg PO TID PRN #10 tab 11/28/20 [Rx Last Taken Unknown] cephalexin 500 mg PO Q6H #40 cap 04/21/21 [Rx Last Taken Unknown] insulin glargine [Lantus Solostar U-100 Insulin] 36 unit SUBCUT QHS 06/13/21 [History Last Taken Unknown] Allergy/AdvReac Type Severity Reaction Status Date / Time vancomycin Allergy Severe BURNING Verified 06/21/21 10:22 RED RASH ON LEGGS cefazolin sodium [From Ancef] Allergy Hives Verified 06/21/21 10:22 Penicillins Allergy Hives Verified 06/21/21 10:22 sumatriptan [From Imitrex] Allergy Shortness Verified 06/21/21 10:22 of breath ziprasidone [From Geodon] AdvReac NEEDS Verified 06/21/21 10:22 FOLLOW-UP Family History Father CVA (cerebral vascular accident) Heart disease Mother Heart disease Surgical History H/O hernia repair History of arthroscopic knee surgery History of elbow surgery (~06/2020) History of left heart catheterization (07/16/20) Hx of section Hx of hysterectomy Kidney stone Social History Smoking Status: Former smoker alcohol intake: current alcohol intake frequency: holidays/special occasions only Alcohol type: wine substance use type: does not use caffeine: Yes (occasionally) ROS ROS ED ROS Narrative Denies recent illness besides palpitations. Review of Systems ROS Unobtainable: Denies due to encephalopathy Constitutional Constitutional ED: Denies chills or fever(s) Eyes Eyes: Denies none or change in vision ENT ENT ED: Denies ear pain or sore throat Cardiovascular Cardiovascular: Reports as per HPI, chest pain and palpitations; Denies racing heartbeat Respiratory/Chest Respiratory/Chest: Reports dyspnea; Denies cough or sputum Gastrointestinal Gastrointestinal: Reports nausea; Denies abdominal pain, diarrhea or vomiting Genitourinary Genitourinary ED: Denies dysuria or hematuria Musculoskeletal Musculoskeletal: Denies myalgias Integumentary Denies rash Neurologic Neurologic: Denies headache(s) Psychiatric Psychiatric: Denies depression Hematologic/Lymphatic Hematologic/Lymphatic: Denies easy bruising Allergic/Immunologic Allergic/Immunologic ED: Denies urticaria EXAM Physical Exam Narrative Exam Narrative: Well-appearing middle-aged female. Vital signs stable afebrile. Pulse ox 90% on room air no hypoxia. H EENT exam unremarkable. Neck nontender no JVD. Lungs clear to auscultation bilaterally. Heart regular rhythm no murmur rate about 80. She has mild reproducible chest wall pain on the left. There is no ecchymosis or bruising. No subcu air crepitance. Abdomen soft nontender normal bowel sounds no peritoneal signs. Morbidly obese. Moving all 4 extremities. Neurovascular intact. Calves are nontender without edema or cords. Back nontender. Neurologically she is awake and alert with no focal motor deficits. Const Vital Signs: 06/25/21 16:03 06/25/21 16:07 06/25/21 16:16 Temperature 96.9 F L Temperature Source Temporal Pulse Rate 80 Respiratory Rate 17 Blood Pressure 150/82 H Blood Pressure Mean 104 Pulse Ox 90 92 92 Oxygen Delivery Method Room Air Room Air Room Air Positive well nourished, well developed and obese; Negative for cachectic, contractures or unkempt General Appearance ED: well developed and NAD; Negative for unkempt, cachectic or contractures Nutritional Appearance: obese; Negative for cachectic HEENT Reports moist mucous membranes normocephalic and atraumatic; Negative for trauma or tenderness Eyes PERRL and EOMs intact bilaterally Neck no lymphadenopathy, supple and no JVD General: Negative for tenderness Chest Wall inspection of chest normal Chest: tenderness Resp normal respiratory effort and clear to auscultation bilaterally Effort and Inspection: respiratory distress Cardio regular rate, regular rhythm, S1 normal heart sound, S2 normal heart sound and no murmurs GI normal to inspection, nondistended, normoactive bowel sounds, soft to palpation, non-tender, non-distended and no masses; Negative for hepatosplenomegaly Auscultation: Negative for hyperactive bowel sounds Back/Spine no CVA tenderness General Back: Negative for CVA tenderness Extremity normal to inspection General Extremety ED: Negative for edema or tenderness General Extremity: Negative for edema Neuro oriented x3 Sensorium / Orientation: awake, alert, oriented to person, oriented to place and oriented to time Motor Exam: strength 5/5 throughout Psych mental status grossly normal Appearance: Negative for unkempt Skin no rashes or lesions noted and no wounds Heart Score History: Slightly/Non-Suspicious ECG: Significant ST-Depression Age: >45 - <65 years Risk Factors: 1 or 2 Risk Factors Score: 4 MDM MDM MDM Narrative Medical decision making narrative: Middle-age obese female with hypertension with midsternal chest pain. She undergo cardiac work-up. She is brought in by squad they were given aspirin. Repeat exam at 5:15 PM patient doing well. She still has reproducible left chest wall pain. Her work-up is negative she and I went over that. Her tests are basically unchanged from prior. Her troponin was normal. I reviewed her old records she had a heart cath done in July almost a year ago in 2019 and it was basically negative with minimal disease of 20% in one of the coronary arteries. She also had a negative stress test the year before that in 2019. In light that her pain is reproducible and her prior work-up and a catheterization less than a year ago I do not like this is cardiac she will be given IV Toradol and discharged home. I will obtain a second EKG prior to discharge. Lab Data Lab results narrative: CBC White count of 4. Hemoglobin 9.3 which is her baseline. Electrolytes gap of 6. Creatinine normal. High-sensitivity troponin 3.5. Labs: Laboratory Results - last 24 hr 06/25/21 06/25/21 15:50 15:50 WBC 4.6 RBC 4.78 Hgb 11.3 L Hct 37.4 MCV 78.2 L MCH 23.6 L MCHC 30.2 L RDW Std Deviation 43.8 RDW Coeff of Jocy 15.7 H Plt Count 204 MPV 10.4 Immature Gran % (Auto) 0.200 Neut % (Auto) 74.0 H Lymph % (Auto) 16.5 L Vigo % (Auto) 9.3 Eos % (Auto) 0.0 Baso % (Auto) 0.0 Absolute Neuts (auto) 3.4 Absolute Lymphs (auto) 0.76 L Nucleated RBC % 0 Sodium 134 L Potassium 4.2 Chloride 100 Carbon Dioxide 28.0 Anion Gap 6 BUN 13 Creatinine 0.88 Estim Creat Clear Calc 63.47 Est GFR (MDRD) Af Amer 85 Est GFR (MDRD) Non-Af 70 BUN/Creatinine Ratio 14.8 Glucose 377 H Calcium 8.7 Troponin I High Sens 3.5 Radiography Chest X-Ray - ED: 1 View, Heart, Lungs, Mediastinum, Bony Structures and No Acute Disease Diagnostic Testing: Radiology Impression Chest X-Ray 06/25/21 16:20 IMPRESSION: No active disease. Electronically Signed: Baljinder Morris MD at 16:30 EDT Tel , Service support , Portable chest x-ray 1 view interpreted both by myself and the radiologist shows no acute abnormality. She does have a chronically elevated right hemidiaphragm which she has had on prior films. Rhythm Strip Rhythm Strip: Sinus Rhythm Rate: 77 Ectopy: None EKG Initial EKG: Attestation: I personally reviewed and interpreted this EKG as follows: Interpretation: Sinus Rhythm and No Acute Injury Pattern Comments: Normal sinus rhythm rate of 77. ST-T wave abnormalities with inverted T waves in lead III, V1 through V6. Consistent with prior EKG from May. Prior EKG tracings: available for review Prior: Unchanged Follow-up EKG: Attestation: I personally reviewed and interpreted this EKG as follows: Interpretation: Sinus Rhythm Comments: Repeat EKG was done at 5:21 PM. Normal sinus rhythm rate of 73. Has the same inverted T waves with ST depression its been seen on the prior EKG today and from May. Patient be discharged home. Discharge Plan Triage Chief Complaint: Chest Pain ED Provider: Oni Lester Dx/Rx/DC Orders Clinical Impression: Acute chest wall pain, Diabetes Instructions: ED Chest Wall Pain, Costochondritis, ED Diabetes- Overview Prescriptions: No Action valacyclovir 1 gram tablet 1,000 mg PO DAILY RF: 0 omeprazole 10 mg capsule,delayed release(DR/EC) 40 mg PO DAILY RF: 0 oxybutynin chloride 15 MG tablet extended release 24 hr 15 mg PO QHS RF: 0 nadolol 80 MG tablet 160 mg PO QHS RF: 0 buspirone 10 MG tablet 20 mg PO TID RF: 0 bupropion HCl 300 MG tablet extended release 24 hr 450 mg PO DAILY RF: 0 tramadol 50 MG tablet 100 mg PO Q6H PRN PRN (Reason: Pain) RF: 0 albuterol sulfate 1 INHALER inhaler 2 puff INHALATION Q4H PRN PRN (Reason: Sob &/Or Wheezing) RF: 0 insulin glargine 100 UNIT/ML insulin pen 34 unit subcut DAILY RF: 0 rizatriptan 5 MG tablet,disintegrating 5 mg PO DAILY PRN (Reason: Migraine Symptoms) RF: 0 pregabalin 75 MG capsule 75 mg PO TID RF: 0 insulin lispro 100 UNIT/ML insulin pen 0 - 100 unit SQ TIDCM RF: 0 liraglutide 0.6 MG/0.1 ML pen injector 0.8 mg SQ DAILY RF: 0 dicyclomine 10 MG capsule 20 mg PO TIDAC Qty: 20 RF: 0 primidone 50 MG tablet 100 mg PO 4X/DAY RF: 0 fluticasone propionate 1 SPRAY spray,suspension 2 spray NASAL DAILY RF: 0 escitalopram oxalate 10 MG tablet 20 mg PO DAILY RF: 0 ondansetron 4 MG tablet 4 mg PO Q8H PRN PRN (Reason: Nausea) RF: 0 paliperidone 6 MG tablet 9 mg PO DAILY RF: 0 tizanidine 4 MG capsule 4 mg PO PRN PRN (Reason: Muscle Spasm) RF: 0 lisinopril 20 MG tablet 20 mg PO DAILY Qty: 30 RF: 2 aspirin 81 MG tablet,chewable 81 mg PO DAILY@0800 RF: 0 quetiapine 100 MG tablet 100 mg PO QHS RF: 0 lorazepam 1 MG tablet 1 mg PO TID PRN (Reason: Anxiety) Qty: 10 RF: 0 cephalexin 500 mg capsule 500 mg PO Q6H Qty: 40 RF: 0 Lantus Solostar U-100 Insulin 100 unit/mL (3 mL) insulin pen 36 unit SUBCUT QHS RF: 0 glimepiride 2 mg tablet 4 mg PO BID RF: 0 Primary Care Provider: Cristal Wolf Referrals: Cristal Wolf MD [Primary Care Provider] - 3-5 Days if not improving Activity Restrictions/Additional Instructions: Continue your current medications. Today's chest pain does not appear to be cardiac. Ice your chest wall. Motrin and Tylenol for pain. Follow-up with your doctor if not improving. Return emergency department if feeling worse. Disposition Disposition: Home, Self Care Discharge Date/Time: 06/25/21 18:02
--- NOTE | 2021-06-25 16:20 | RAD_ITS ---
STUDY: X-RAY CHEST REASON FOR EXAM: Female, 55 years old. chest pain TECHNIQUE: Single AP portable view of the chest. COMPARISON: 06/13/2021 FINDINGS: The lungs are clear and expanded. Elevated right hemidiaphragm which is unchanged. Normal size heart. Normal mediastinum and keli. Normal visualized pulmonary arteries. Normal visualized aortic arch and descending thoracic aorta. Normal visualized thoracic spine. Normal visualized ribs, clavicles, and shoulders. There is no demonstrated abnormality of the visualized soft tissue structures of the upper abdomen. RAD/Chest 1 View (Portable) IMPRESSION: No active disease. Electronically Signed: Baljinder Morris MD at 16:30 EDT Tel , Service support ,
[2021-06-25 16:43] LABS: Absolute Lymphocyte Count 0.76 X10^3/uL (0.83-4.51); Absolute Neutrophil Count 3.4 X10^3/uL (2.0-7.7); Hematocrit 37.4 % (37-47); Hemoglobin 11.3 g/dL (12.0-15.0); Lymphocyte # 0.76 X10^3/ul (0.83-4.51); Lymphocyte % 16.5 % (19-41); Mean Corp Hgb Conc 30.2 g/dL (32-36); Mean Corpuscular Hgb 23.6 pg (27.0-32.0); Mean Corpuscular Volume 78.2 fL (81-99); Mean Platelet Vol. 10.4 fl (6.2-12.0); Monocyte# 0.43 X10^3/uL; Monocyte% 9.3 % (0-10); NRBC Flagged by Analyzer 0 % (0-5); Neutrophil # 3.41 X10^3/uL (2.7-7.7); Platelet Count 204 K/mm3 (150-450); RBC Distribution Width CV 15.7 % (11.6-14.6); RBC Distribution Width SD 43.8 fl (35.1-43.9); Red Blood Count 4.78 M/mm3 (4.2-5.4); White Blood Count 4.6 K/mm3 (4.4-11.0)
[2021-06-25 16:45] LABS: Anion Gap 6 (5-15); BUN 13 mg/dL (7-18); BUN/Creat Ratio 14.8 RATIO (10-20); Calcium,Total 8.7 mg/dL (8.5-10.1); Chloride 100 mmol/L (98-107); Creatinine, Serum 0.88 mg/dL (0.55-1.02); EST Glomerular Filtration Rate 70 mL/min (>60); Est Glom Filt Rate - Afr Amer 85 mL/min (>60); Estimated Creatinine Clearance 63.47 ml/min; Glucose 377 mg/dL (74-106); Potassium 4.2 mmol/L (3.5-5.1); Sodium Level 134 mmol/L (136-145); Troponin-I HS 3.5 pg/mL (3.0-53.7)
--- NOTE | 2021-06-25 17:19 | EKG12_ITS ---
Test Reason : Blood Pressure : / mmHG Vent. Rate : 073 BPM Atrial Rate : 073 BPM P-R Int : 178 ms QRS Dur : 110 ms QT Int : 388 ms P-R-T Axes : 043 -12 -32 degrees QTc Int : 427 ms Normal sinus rhythm Incomplete right bundle branch block ST & T wave abnormality, consider anterolateral ischemia ST/T Wave abnormality, consider inferior ischemia Abnormal ECG Confirmed by AMY RIZO, NICHOLAS ([id number]), editor at large KARMEN ORTIZ ([id number]) on 06/29/2021 9:00:44 AM Referred By: MARY Confirmed By:NICHOLAS REYES MD
[2021-06-25] MEDS: Ketorolac 30 MG/ML Syringe IV (17:49)
[2021-06-25 17:57] VITALS: BP 141/76; PULSE 75; RESP 24; O2SAT 93
== END 2021-06-25 18:02 | disposition home or self-care (01) ==
PROVIDERS: Emergency Provider Emergency Medicine; PCP Internal Medicine
DX: R07.89 Other chest pain (principal); E11.9 Type 2 diabetes mellitus without complications; R94.31 Abnormal electrocardiogram [ECG] [EKG]; E66.9 Obesity, unspecified; Z87.891 Personal history of nicotine dependence; Z79.4 Long term (current) use of insulin; Z79.82 Long term (current) use of aspirin; J44.9 Chronic obstructive pulmonary disease, unspecified; F90.9 Attention-deficit hyperactivity disorder, unspecified type; I10 Essential (primary) hypertension; G47.33 Obstructive sleep apnea (adult) (pediatric); K21.9 Gastro-esophageal reflux disease without esophagitis; F31.9 Bipolar disorder, unspecified; I87.2 Venous insufficiency (chronic) (peripheral)
CPT/HCPCS: 71045; 80048; 84484; 85025; 93005; 96374; 99285

== ENCOUNTER → 2021-07-01 09:54 | Outpatient (CLI) | payer MEDICAID, SELFPAY ==
[2021-06-21 08:43] VITALS: BMI 50.5
[2021-06-25 16:03] VITALS: BMI 50.0
--- NOTE | 2021-07-01 09:56 | CDU_ITS ---
Reason For Study: lightheadeness with activity Rt. Velocities/BP Lt. Velocities/BP Prox CCA 87.8/17.3 cm/sec. Prox CCA 123.2/16.3 cm/sec. Mid CCA 87.8/20.0 cm/sec. Mid CCA 93.7/18.8 cm/sec. Dist CCA 76.0/22.6 cm/sec. Dist CCA 79.0/17.6 cm/sec. Prox ICA 56.0/11.6 cm/sec. Prox ICA 60.5/13.9 cm/sec. Mid ICA 89.1/39.0 cm/sec. Mid ICA 58.1/21.2 cm/sec. Dist ICA 65.5/25.5 cm/sec. Dist ICA 83.9/32.3 cm/sec. Rt. ICA/CCA = 1.0. Lt. ICA/CCA = .9. Prox ECA 125.6/18.6 cm/sec. Prox ECA 75.3/12.6 cm/sec. Rt. Vert. 49.4/7.8 cm/sec. Lt. Vert. 53.2/13.5 cm/sec. Right Extracranial There is intimal thickening but no significant atherosclerotic plaque noted in the right common carotid artery. There is intimal thickening but no significant atherosclerotic plaque noted in the right internal carotid artery. There is intimal thickening but no significant atherosclerotic plaque noted in the right external carotid artery. Antegrade flow is noted in the right vertebral artery. There is heterogeneous, irregular atherosclerotic plaque noted in the right bulb. Left Extracranial There is intimal thickening but no significant atherosclerotic plaque noted in the left common carotid artery. There is intimal thickening but no significant atherosclerotic plaque noted in the left internal carotid artery. There is intimal thickening but no significant atherosclerotic plaque noted in the left external carotid artery. Antegrade flow is noted in the left vertebral artery. There is intimal thickening but no significant atherosclerotic plaque noted in the left bulb. Procedure Carotid Duplex 81942. This is a Carotid Duplex examination using B-mode, color flow and specral Doppler. The exam was diagnostic. Exam performed in department. VL/Carotid Duplex Ultrasound Interpretation Summary Minimal smooth plaque of the right carotid bulb with less than 50% stenosis rig ht internal carotid artery Less than 50% stenosis right external carotid artery Intimal thickening left internal carotid artery with less than 50% stenosis Less than 50% stenosis left external carotid artery Patent and antegrade vertebral arteries bilaterally Ordering Physician: Jacki Vasquez Performed By: Mann Perez RVT
--- NOTE | 2021-07-01 09:56 | ECHOCS_ITS ---
Reason For Study: DYSPNEA Procedure This was a 2D Doppler, Color Flow transthoracic echocardiogram. The study was technically difficult. Contrast injection was performed. Exam performed in department. Left Ventricle Normal LV size. Left ventricular systolic function is normal. The estimated ejection fraction is 65 %. Transmitral doppler flow suggestive of impaired relaxation of left ventricle. No regional wall motion abnormalities noted. Right Ventricle Normal RV size. Normal systolic function. Atria The left atrium is mildly enlarged. Normal right atrium. No doppler evidence for ASD. Mitral Valve There is no mitral annular calcification. Normal mitral valve. Trivial mitral valve insufficiency. Tricuspid Valve Normal tricuspid valve. Mild tricuspid valve insufficiency. Right ventricular systolic pressure estimated to be 41 mmHg. Aortic Valve Trisinus/trileaflet aortic valve. Normal aortic valve. Pulmonic Valve The pulmonic valve is not well visualized. Great Vessels Normal sized aortic root. Pericardium/Pleural Trivial pericardial effusion. There are no echocardiographic indications of cardiac tamponade. Medication 22 gauge I.V. with prn adaptor inserted into right arm. Diluted definity 4.0ml given slow IV push to enhance endocardial definition. MMode/2D Measurements & Calculations LVIDd: 4.9 cm IVSd: 0.97 cm Ao root diam: 3.6 cm LVIDs: 3.3 cm LVPWd: 0.99 cm RVDd: 3.7 cm FS: 32.3 % LAV(MOD-sp2): 60.4 ml LVAd ap4: 20.2 cm2 LA A4 area: 20.5 cm2 LVLd ap4: 5.5 cm EDV(MOD-sp4): 59.4 ml EDV(sp4-el): 62.5 ml LA dimension(2D): 3.3 cm RA A4 area: 11.4 cm2 Time Measurements MV dec time: 0.26 sec Doppler Measurements & Calculations MV E max anthony: 80.5 cm/sec Lat Peak E' Anthony: 11.4 cm/sec Med Peak E' Anthony: 7.0 cm/sec MV A max anthony: 86.9 cm/sec E/E' lat: 7.0 E/E' med: 11.5 MV E/A: 0.93 Ao V2 max: 148.1 cm/sec LV V1 max: 119.6 cm/sec PA V2 max: 94.8 cm/sec Ao max P.8 mmHg LV V1 max P.7 mmHg TR max anthony: 308.5 cm/sec TR max P.1 mmHg ECHO/Echo Complete W/ Contrast Interpretation Summary The study was technically difficult. Contrast injection was performed. Left ventricular systolic function is normal. The estimated ejection fraction is 65 %. The left atrium is mildly enlarged. Trivial mitral valve insufficiency. Mild tricuspid valve insufficiency. Trivial pericardial effusion. There are no echocardiographic indications of cardiac tamponade. Right ventricular systolic pressure estimated to be 41 mmHg. Transmitral doppler flow suggestive of impaired relaxation of left ventricle Ordering Physician: Winifred Abernathy Referring Physician: ZHANNA LOPEZ Performed By: Patience Shea, ANNI, RVT
== END ==
PROVIDERS: PCP Internal Medicine; Referring Provider Nurse Practitioner Gerontology; Visit Provider Nurse Practitioner Gerontology
DX: R00.2 Palpitations (principal); R42 Dizziness and giddiness; R06.00 Dyspnea, unspecified
CPT/HCPCS: 93225; 93226; 93306; 93880; Q9957; A4216; C8929; J3490

== ENCOUNTER 2021-07-18 14:50 | Emergency (ER) | payer MEDICAID, SELFPAY ==
[2021-07-18 14:51] VITALS: BP 127/94; PULSE 70; RESP 16; TEMP 36.7; O2SAT 97; BMI 49.1
[2021-07-18 14:55] VITALS: BP 127/94; PULSE 70; RESP 16; TEMP 36.7; O2SAT 97
[2021-07-18 15:16] LABS: Bedside Glucose 230 mg/dL (70-110)
--- NOTE | 2021-07-18 15:21 | ED.VIS.FEGU ---
HPI HPI - Female History of Present Illness Chief Complaint: Complaint Informant: patient Narrative Narrative: Patient is here because there were ketones in her urine check at urgent care today. Patient states that the beginning of the week she was given Diflucan for a yeast infection. That got better. But now she is having some dysuria frequent urination. She gets some suprapubic pressure with urination. She has no nausea vomiting or diarrhea. She just had pork chops with mushroom sauce. Last night she had pizza. She is planning on [employer]. She states that she has not eaten today though. She just got busy and has been running out and doing things so she actually never ate today. But she is not nausea vomiting. She has no abdominal cramping. She has no symptoms consistent with DKA. She has not been having fevers or chills. Urgent care evidently did give her a prescription of Keflex. [facility] Medical History (Updated 07/18/21 @ 16:[address] Mychal Robert MD) ADHD (attention deficit hyperactivity disorder) Arthritis Asthma Back pain Benign hypertension Bipolar disorder Chest pain COPD (chronic obstructive pulmonary disease) Diabetes mellitus type 2, uncontrolled, with complications Essential hypertension Fatigue GERD (gastroesophageal reflux disease) Hemorrhoids Knee pain Migraines Migraines Obstructive sleep apnea Open wound of left lower extremity Pain syndrome, chronic Stasis dermatitis of both legs Super obese Venous insufficiency of both lower extremities Home Medications bupropion HCl 450 mg PO DAILY 03/05/17 [History Last Taken 07/07/18] buspirone 20 mg PO TID 03/05/17 [History Last Taken 07/07/18] oxybutynin chloride 15 mg PO QHS 03/05/17 [History Last Taken 07/06/18] omeprazole 10 mg capsule,delayed release 40 mg PO DAILY 02/18/18 [History Last Taken 07/07/18] valacyclovir 1 gram tablet 1,000 mg PO DAILY 02/18/18 [History Last Taken 04/17/18] tramadol 100 mg PO Q6H PRN PRN 03/11/18 [History Last Taken 04/17/18] albuterol sulfate 2 puff INHALATION Q4H PRN PRN 05/29/18 [History Last Taken 07/07/18] glimepiride 2 mg tablet 4 mg PO BID tab 09/20/18 [History Last Taken Unknown] insulin glargine 34 unit SUBCUT DAILY 10/07/18 [History Last Taken Unknown] rizatriptan 5 mg PO DAILY PRN 10/07/18 [History Last Taken Unknown] pregabalin 75 mg PO TID 10/14/18 [History Last Taken Unknown] insulin lispro 0 - 100 unit SQ TIDCM 12/05/18 [History Last Taken Unknown] liraglutide 0.8 mg SQ DAILY 12/05/18 [History Last Taken Unknown] dicyclomine 20 mg PO TIDAC #20 cap 07/28/19 [Rx Last Taken Unknown] escitalopram oxalate 20 mg PO DAILY 08/04/19 [History Last Taken Unknown] fluticasone propionate 2 spray NASAL DAILY 08/04/19 [History Last Taken Unknown] primidone 100 mg PO 4X/DAY 08/04/19 [History Last Taken Unknown] ondansetron 4 mg PO Q8H PRN PRN 09/22/19 [History Last Taken Unknown] paliperidone 9 mg PO DAILY 03/16/20 [History Last Taken Unknown] tizanidine 4 mg PO PRN PRN 07/15/20 [History Last Taken Unknown] aspirin 81 mg PO DAILY@0800 tab.chew 07/17/20 [Rx Last Taken Unknown] lisinopril 20 mg PO DAILY #30 tab 07/17/20 [Rx Last Taken Unknown] quetiapine 100 mg PO QHS 11/22/20 [History Last Taken Unknown] lorazepam 1 mg PO TID PRN #10 tab 11/28/20 [Rx Last Taken Unknown] cephalexin 500 mg PO Q6H #40 cap 04/21/21 [Rx Last Taken Unknown] insulin glargine [Lantus Solostar U-100 Insulin] 36 unit SUBCUT QHS 06/13/21 [History Last Taken Unknown] nadolol 80 mg tablet 80 mg PO BID tab 07/08/21 [History Last Taken Unknown] fluconazole [Diflucan] 150 mg PO .once 1 Days tab 07/18/21 [Rx Last Taken Unknown] phenazopyridine [Pyridium] 100 mg PO TID PRN #6 tab 07/18/21 [Rx Last Taken Unknown] Allergy/AdvReac Type Severity Reaction Status Date / Time vancomycin Allergy Severe BURNING Verified 07/18/21 14:51 RED RASH ON LEGGS cefazolin sodium [From Ancef] Allergy Hives Verified 07/18/21 14:51 Penicillins Allergy Hives Verified 07/18/21 14:51 sumatriptan [From Imitrex] Allergy Shortness Verified 07/18/21 14:51 of breath ziprasidone [From Geodon] AdvReac NEEDS Verified 07/18/21 14:51 FOLLOW-UP Family History Father CVA (cerebral vascular accident) Heart disease Mother Heart disease Surgical History H/O hernia repair History of arthroscopic knee surgery History of elbow surgery (~06/2020) History of left heart catheterization (07/16/20) Hx of section Hx of hysterectomy Kidney stone Social History Smoking Status: Former smoker alcohol intake: current alcohol intake frequency: holidays/special occasions only Alcohol type: wine substance use type: does not use caffeine: Yes (occasionally) ROS ROS ED Constitutional Constitutional ED: Denies chills or fever(s) Eyes Eyes: Denies blurry vision ENT ENT ED: Denies rhinorrhea Cardiovascular Cardiovascular: Denies chest pain or palpitations Respiratory/Chest Respiratory/Chest: Denies cough or dyspnea Gastrointestinal Gastrointestinal: Denies abdominal pain, constipation, diarrhea, melena, nausea or vomiting Genitourinary Genitourinary ED: Reports dysuria and urinary frequency; Denies hematuria Musculoskeletal Musculoskeletal: Denies myalgias Integumentary Denies rash Neurologic Neurologic: Denies headache(s) Psychiatric Psychiatric: Reports anxiety and depression Endocrine Endocrinology: Denies polydipsia or polyuria Hematologic/Lymphatic Hematologic/Lymphatic: Denies easy bleeding or easy bruising Allergic/Immunologic Allergic/Immunologic ED: Denies urticaria EXAM Physical Exam Const Vital Signs: 07/18/21 14:51 07/18/21 14:55 Temperature 98.0 F 98.0 F Temperature Source Temporal Temporal Pulse Rate 70 70 Respiratory Rate 16 16 Blood Pressure 127/94 H 127/94 H Blood Pressure Mean 105 105 Pulse Ox 97 97 Oxygen Delivery Method Room Air Room Air Positive well nourished, well developed and obese General Appearance ED: well developed and NAD Nutritional Appearance: obese HEENT Reports moist mucous membranes Negative for trauma Eyes EOMs intact bilaterally Neck no JVD Chest Wall inspection of chest normal Resp normal respiratory effort and clear to auscultation bilaterally Cardio regular rate and regular rhythm GI normal to inspection, nondistended, normoactive bowel sounds, soft to palpation, non-tender and non-distended GI Narrative: No tenderness. No suprapubic tenderness either. No CVA tenderness. no CVA tenderness Back/Spine no CVA tenderness Extremity Extremity Narrative: Chronic venous stasis changes but no sign of cellulitis. Also, no edema or tenderness. Neuro oriented x3 Sensorium / Orientation: alert Psych mental status grossly normal Skin no rashes or lesions noted MDM MDM MDM Narrative Medical decision making narrative: Urinalysis is consistent with UTI. Patient has already filled her Keflex prescription that she just received an hour or so ago. Ketones on her urine were negative. Her glucose was 230. Although this is higher than normal it is actually quite good for her. She has no symptoms of DKA such as abdominal pain nausea or vomiting. She is hungry. I think we get her home. I will write for Diflucan here in 1 for the end of treatment because she does get frequent yeast infections with antibiotics. I will also write for some Pyridium which she has used successfully before. Lab Data Attestation: I reviewed the patient's lab results. Labs: Laboratory Results - last 24 hr 07/18/21 07/18/21 15:07 15:20 Urine Color Yellow Urine Clarity Cloudy Urine pH 8.0 Ur Specific [place] 1.010 Urine Protein 100 H Urine Glucose (UA) 50 H Urine Ketones Negative Urine Occult Blood 250 H Urine Nitrite Negative Urine Bilirubin Negative Urine Urobilinogen 1 H Ur Leukocyte Esterase 500 H Urine RBC > 100 SEEN Urine WBC >100 SEEN Ur Squamous Epith Cells 0-5 SEEN Urine Bacteria 0 SEEN WBC Casts 0-5 SEEN Urine Mucus 0 SEEN POC Glucose 230 H Discharge Plan Triage Chief Complaint: Complaint ED Provider: Mychal Robert Dx/Rx/DC Orders Clinical Impression: Urinary tract infection Instructions: Urinary Tract Infections in Women Prescriptions: New phenazopyridine [Pyridium] 100 mg tablet 100 mg PO TID PRN (Reason: pain) Qty: 6 RF: 0 fluconazole [Diflucan] 150 mg tablet 150 mg PO .once 1 Days RF: 0 No Action valacyclovir 1 gram tablet 1,000 mg PO DAILY RF: 0 omeprazole 10 mg capsule,delayed release(DR/EC) 40 mg PO DAILY RF: 0 oxybutynin chloride 15 MG tablet extended release 24 hr 15 mg PO QHS RF: 0 buspirone 10 MG tablet 20 mg PO TID RF: 0 bupropion HCl 300 MG tablet extended release 24 hr 450 mg PO DAILY RF: 0 tramadol 50 MG tablet 100 mg PO Q6H PRN PRN (Reason: Pain) RF: 0 albuterol sulfate 1 INHALER inhaler 2 puff INHALATION Q4H PRN PRN (Reason: Sob &/Or Wheezing) RF: 0 insulin glargine 100 UNIT/ML insulin pen 34 unit subcut DAILY RF: 0 rizatriptan 5 MG tablet,disintegrating 5 mg PO DAILY PRN (Reason: Migraine Symptoms) RF: 0 pregabalin 75 MG capsule 75 mg PO TID RF: 0 insulin lispro 100 UNIT/ML insulin pen 0 - 100 unit SQ TIDCM RF: 0 liraglutide 0.6 MG/0.1 ML pen injector 0.8 mg SQ DAILY RF: 0 dicyclomine 10 MG capsule 20 mg PO TIDAC Qty: 20 RF: 0 primidone 50 MG tablet 100 mg PO 4X/DAY RF: 0 fluticasone propionate 1 SPRAY spray,suspension 2 spray NASAL DAILY RF: 0 escitalopram oxalate 10 MG tablet 20 mg PO DAILY RF: 0 ondansetron 4 MG tablet 4 mg PO Q8H PRN PRN (Reason: Nausea) RF: 0 paliperidone 6 MG tablet 9 mg PO DAILY RF: 0 tizanidine 4 MG capsule 4 mg PO PRN PRN (Reason: Muscle Spasm) RF: 0 lisinopril 20 MG tablet 20 mg PO DAILY Qty: 30 RF: 2 aspirin 81 MG tablet,chewable 81 mg PO DAILY@0800 RF: 0 quetiapine 100 MG tablet 100 mg PO QHS RF: 0 lorazepam 1 MG tablet 1 mg PO TID PRN (Reason: Anxiety) Qty: 10 RF: 0 cephalexin 500 mg capsule 500 mg PO Q6H Qty: 40 RF: 0 Lantus Solostar U-100 Insulin 100 unit/mL (3 mL) insulin pen 36 unit SUBCUT QHS RF: 0 glimepiride 2 mg tablet 4 mg PO BID RF: 0 nadolol 80 mg tablet 80 mg PO BID RF: 0 Primary Care Provider: Cristal Wolf Referrals: Cristal Wolf MD [Primary Care Provider] - 3-5 Days Disposition Disposition: Home, Self Care Discharge Date/Time: 07/18/21 16:35
[2021-07-18 15:23] LABS: Bacteria 0 SEEN /hpf (None Seen); Mucous, Urine 0 SEEN /hpf (<or=2+)
[2021-07-18 15:30] LABS: Color, Urine Yellow (Yellow); Glucose, Dipstick 50 mg/dl (Normal); Ketone-Dipstick Negative (Negative); Leukocyte Esterase-Dipstick 500 /ul (Negative); Nitrite-Dipstick Negative (Negative); Occult Blood-Urine 250 /ul (Negative); Protein-Dipstick 100 mg/dl (Negative); Urine Bilirubin Dipstick Negative (Negative); Urine Clarity Cloudy (Clear); Urine Urobilinogen 1 mg/dl (Normal)
[2021-07-18 15:37] LABS: Squamous Epithelial Cells - UA 0-5 SEEN /hpf (5-10)
[2021-07-18 15:39] LABS: White Blood Cells >100 SEEN /hpf (0-5)
[2021-07-18 15:40] LABS: Red Blood Cells-Urine > 100 SEEN /hpf (0-5)
[2021-07-18 15:44] LABS: White Cell Cast 0-5 SEEN /lpf (None Seen)
[2021-07-18] MEDS: Fluconazole 100 MG Tablet 200 MG PO (16:35)
== END 2021-07-18 16:35 | disposition home or self-care (01) ==
PROVIDERS: Emergency Provider Emergency Medicine; PCP Internal Medicine
DX: N39.0 Urinary tract infection, site not specified (principal); E66.9 Obesity, unspecified; F31.9 Bipolar disorder, unspecified; F90.9 Attention-deficit hyperactivity disorder, unspecified type; G47.33 Obstructive sleep apnea (adult) (pediatric); I10 Essential (primary) hypertension; J44.9 Chronic obstructive pulmonary disease, unspecified; I87.2 Venous insufficiency (chronic) (peripheral); M19.90 Unspecified osteoarthritis, unspecified site; Z79.4 Long term (current) use of insulin; Z79.82 Long term (current) use of aspirin; Z79.899 Other long term (current) drug therapy; Z87.891 Personal history of nicotine dependence; E11.9 Type 2 diabetes mellitus without complications
CPT/HCPCS: 81001; 82962; 99283

== ENCOUNTER 2021-09-08 10:15 | Emergency (ER) | payer MEDICAID, SELFPAY ==
[2021-09-08 10:15] VITALS: BP 149/96; PULSE 80; RESP 16; TEMP 35.7; O2SAT 92; BMI 53.2
--- NOTE | 2021-09-08 10:28 | EDS_ITS ---
HPI History of Present Illness Chief Complaint: Headache Detail of Chief Complaint: Headache off-and-on over the last 7 days Informant: patient Narrative Narrative: Patient presents to the emergency department complaint of a headache that started initially about 7 days ago. Patient states that she has had a headache off and on. She has history of migraines and has been taking her naratriptan which she ran out of yesterday. She woke up this morning and had an aura as well as nausea. She describes pain across the forehead with photophobia. Headache is typical of her migraines. Patient denies any head trauma. She is not on any blood thinners. Prior similar symptoms: Yes PFSH PFS Medical History (Updated 09/08/21 @ 11:[address] Eliza Aldana, ) ADHD (attention deficit hyperactivity disorder) Arthritis Asthma Back pain Benign hypertension Bipolar disorder Chest pain COPD (chronic obstructive pulmonary disease) Diabetes mellitus type 2, uncontrolled, with complications Essential hypertension Fatigue GERD (gastroesophageal reflux disease) Hemorrhoids Knee pain Migraines Migraines Obstructive sleep apnea Open wound of left lower extremity Pain syndrome, chronic Stasis dermatitis of both legs Super obese Venous insufficiency of both lower extremities Home Medications bupropion HCl 450 mg PO DAILY 03/05/17 [History Last Taken 07/07/18] buspirone 20 mg PO TID 03/05/17 [History Last Taken 07/07/18] oxybutynin chloride 15 mg PO QHS 03/05/17 [History Last Taken 07/06/18] omeprazole 10 mg capsule,delayed release 40 mg PO DAILY 02/18/18 [History Last Taken 07/07/18] valacyclovir 1 gram tablet 1,000 mg PO DAILY 02/18/18 [History Last Taken 04/17/18] tramadol 100 mg PO Q6H PRN PRN 03/11/18 [History Last Taken 04/17/18] albuterol sulfate 2 puff INHALATION Q4H PRN PRN 05/29/18 [History Last Taken 07/07/18] glimepiride 2 mg tablet 4 mg PO BID tab 09/20/18 [History Last Taken Unknown] insulin glargine 34 unit SUBCUT DAILY 10/07/18 [History Last Taken Unknown] rizatriptan 5 mg PO DAILY PRN 10/07/18 [History Last Taken Unknown] pregabalin 75 mg PO TID 10/14/18 [History Last Taken Unknown] insulin lispro 0 - 100 unit SQ TIDCM 12/05/18 [History Last Taken Unknown] liraglutide 0.8 mg SQ DAILY 12/05/18 [History Last Taken Unknown] dicyclomine 20 mg PO TIDAC #20 cap 07/28/19 [Rx Last Taken Unknown] escitalopram oxalate 20 mg PO DAILY 08/04/19 [History Last Taken Unknown] fluticasone propionate 2 spray NASAL DAILY 08/04/19 [History Last Taken Unknown] primidone 100 mg PO 4X/DAY 08/04/19 [History Last Taken Unknown] ondansetron 4 mg PO Q8H PRN PRN 09/22/19 [History Last Taken Unknown] paliperidone 9 mg PO DAILY 03/16/20 [History Last Taken Unknown] tizanidine 4 mg PO PRN PRN 07/15/20 [History Last Taken Unknown] aspirin 81 mg PO DAILY@0800 tab.chew 07/17/20 [Rx Last Taken Unknown] lisinopril 20 mg PO DAILY #30 tab 07/17/20 [Rx Last Taken Unknown] quetiapine 100 mg PO QHS 11/22/20 [History Last Taken Unknown] lorazepam 1 mg PO TID PRN #10 tab 11/28/20 [Rx Last Taken Unknown] cephalexin 500 mg PO Q6H #40 cap 04/21/21 [Rx Last Taken Unknown] insulin glargine [Lantus Solostar U-100 Insulin] 36 unit SUBCUT QHS 06/13/21 [History Last Taken Unknown] nadolol 80 mg tablet 80 mg PO BID tab 07/08/21 [History Last Taken Unknown] fluconazole [Diflucan] 150 mg PO .once 1 Days tab 07/18/21 [Rx Last Taken Unknown] phenazopyridine [Pyridium] 100 mg PO TID PRN #6 tab 07/18/21 [Rx Last Taken Unknown] Allergy/AdvReac Type Severity Reaction Status Date / Time vancomycin Allergy Severe BURNING Verified 07/22/21 08:56 RED RASH ON LEGGS cefazolin sodium [From Ancef] Allergy Hives Verified 07/22/21 08:56 Penicillins Allergy Hives Verified 07/22/21 08:56 sumatriptan [From Imitrex] Allergy Shortness Verified 07/22/21 08:56 of breath ziprasidone [From Geodon] AdvReac NEEDS Verified 07/22/21 08:56 FOLLOW-UP Family History (Reviewed 07/22/21 @ 10:14 by Jacki Vasquez HVAC MECHANICAL ENGINEER, HVAC MECHANICAL ENGINEER-C) Father CVA (cerebral vascular accident) Heart disease Mother Heart disease Surgical History H/O hernia repair History of arthroscopic knee surgery History of elbow surgery (~06/2020) History of left heart catheterization (07/16/20) Hx of section Hx of hysterectomy Kidney stone Social History (Reviewed 07/22/21 @ 10:14 by Jacki Vasquez HVAC MECHANICAL ENGINEER, HVAC MECHANICAL ENGINEER-C) Smoking Status: Former smoker alcohol intake: current alcohol intake frequency: holidays/special occasions only Alcohol type: wine substance use type: does not use caffeine: Yes (occasionally) ROS ROS ED Constitutional Constitutional ED: Reports systems reviewed and no addt'l complaints, except as documented; Denies body ache(s), change in weight or chills Eyes Eyes: Denies acute decrease in peripheral vision, change in vision, double vision or loss of vision ENT ENT ED: Reports none; Denies ear pain, lip swelling, loss taste/smell, neck pain, otalgia or sore throat Cardiovascular Cardiovascular: Reports none; Denies abdominal pain, chest pain with activity, leg edema, lightheadedness, palpitations, rapid heart rate or syncope Respiratory/Chest Respiratory/Chest: Reports none; Denies change in mental status, dry cough, dyspnea, hemoptysis, shortness of breath at rest or shortness of breath with exertion Gastrointestinal Gastrointestinal: Reports none and nausea; Denies abdominal pain, change in stool character, diarrhea, hematemesis, hematochezia, melena, rectal bleeding or vomiting Genitourinary Genitourinary ED: Reports none; Denies abdominal discomfort, anuria, dysuria, genital pain or polyuria Musculoskeletal Musculoskeletal: Reports none; Denies arthralgias, back pain, difficulty walking, extremity pain, muscle weakness or myalgias Integumentary Reports none; Denies abscess or rash Neurologic Neurologic: Reports none and headache(s); Denies abnormal gait, confusion, focal weakness, frequent falls, loss of vision, numbness, paresthesias, radicular pain, vertigo or weakness Psychiatric Psychiatric: Reports systems reviewed and no addt'l complaints, except as documented and none; Denies behavioral changes, confusion, difficulty concentrating, hallucinations, suicidal ideation, tactile hallucinations or visual hallucinations Endocrine Endocrinology: Denies none, cold intolerance, excessive sweating, fatigue or heat intolerance Hematologic/Lymphatic Hematologic/Lymphatic: Reports none; Denies anemia, easy bleeding or easy bruising Allergic/Immunologic Allergic/Immunologic ED: Denies as per HPI, none, lip swelling, mouth swelling, throat swelling, tongue swelling or hives EXAM Physical Exam Const Vital Signs: 09/08/21 10:15 Temperature 96.3 F L Temperature Source Temporal Pulse Rate 80 Respiratory Rate 16 Blood Pressure 149/96 H Blood Pressure Mean 113 Pulse Ox 92 Oxygen Delivery Method Room Air Positive well nourished and well developed General Appearance ED: well developed and NAD HEENT Reports TM's clear and moist mucous membranes normocephalic and atraumatic; Negative for trauma or tenderness Tympanic Membrane ED: Yes TM's clear Eyes PERRL and EOMs intact bilaterally General Eye ED: Negative for pale conjunctiva or scleral icterus Neck no lymphadenopathy, supple and no JVD General: Negative for tenderness Chest Wall inspection of chest normal and palpation of chest normal Chest: Negative for tenderness Resp normal respiratory effort and clear to auscultation bilaterally Effort and Inspection: Negative for respiratory distress or pain with movement Auscultation: Negative for rhonchi, wheezes or diminished lung sounds Cardio regular rate, regular rhythm, S1 normal heart sound, S2 normal heart sound and no murmurs Peripheral Pulses: pulses 2+ throughout GI normal to inspection, nondistended, normoactive bowel sounds, soft to palpation, non-tender, non-distended and no masses Back/Spine no CVA tenderness and no thoracic nor lumbar tenderness Extremity normal to inspection General Extremety ED: Negative for edema General Extremity: Negative for edema Neuro oriented x3, CN's II-XII intact bilaterally, no sensory deficits noted and gait normal Neuro Narrative: Finger-nose and heel perera testing within normal limits, negative Romberg, negative for drift, fundi benign Sensorium / Orientation: awake, alert, oriented to person, oriented to place and oriented to time Motor Exam: strength 5/5 throughout and strength abnormal Psych mental status grossly normal Skin no rashes or lesions noted and no wounds MDM MDM MDM Narrative Medical decision making narrative: IV line established. Patient was given a liter normal same fluid bolus as well as Reglan, Benadryl, and Toradol. Headache mostly resolved now. Patient did receive Decadron as well 10 mg IV in order to try to abort migrainous pattern of headaches. Patient understands this may temporarily elevate her blood sugars and she does check them frequently at home and use a sliding scale to treat her blood sugars. Patient to follow-up with her primary care physician in 3 to 5 days. Discharge Plan Triage Chief Complaint: Headache ED Provider: Eliza Aldana Dx/Rx/DC Orders Clinical Impression: Headache, migraine Instructions: ED, Migraine (Classical) Prescriptions: No Action valacyclovir 1 gram tablet 1,000 mg PO DAILY RF: 0 omeprazole 10 mg capsule,delayed release(DR/EC) 40 mg PO DAILY RF: 0 oxybutynin chloride 15 MG tablet extended release 24 hr 15 mg PO QHS RF: 0 buspirone 10 MG tablet 20 mg PO TID RF: 0 bupropion HCl 300 MG tablet extended release 24 hr 450 mg PO DAILY RF: 0 tramadol 50 MG tablet 100 mg PO Q6H PRN PRN (Reason: Pain) RF: 0 albuterol sulfate 1 INHALER inhaler 2 puff INHALATION Q4H PRN PRN (Reason: Sob &/Or Wheezing) RF: 0 insulin glargine 100 UNIT/ML insulin pen 34 unit subcut DAILY RF: 0 rizatriptan 5 MG tablet,disintegrating 5 mg PO DAILY PRN (Reason: Migraine Symptoms) RF: 0 pregabalin 75 MG capsule 75 mg PO TID RF: 0 insulin lispro 100 UNIT/ML insulin pen 0 - 100 unit SQ TIDCM RF: 0 liraglutide 0.6 MG/0.1 ML pen injector 0.8 mg SQ DAILY RF: 0 dicyclomine 10 MG capsule 20 mg PO TIDAC Qty: 20 RF: 0 primidone 50 MG tablet 100 mg PO 4X/DAY RF: 0 fluticasone propionate 1 SPRAY spray,suspension 2 spray NASAL DAILY RF: 0 escitalopram oxalate 10 MG tablet 20 mg PO DAILY RF: 0 ondansetron 4 MG tablet 4 mg PO Q8H PRN PRN (Reason: Nausea) RF: 0 paliperidone 6 MG tablet 9 mg PO DAILY RF: 0 tizanidine 4 MG capsule 4 mg PO PRN PRN (Reason: Muscle Spasm) RF: 0 lisinopril 20 MG tablet 20 mg PO DAILY Qty: 30 RF: 2 aspirin 81 MG tablet,chewable 81 mg PO DAILY@0800 RF: 0 quetiapine 100 MG tablet 100 mg PO QHS RF: 0 lorazepam 1 MG tablet 1 mg PO TID PRN (Reason: Anxiety) Qty: 10 RF: 0 cephalexin 500 mg capsule 500 mg PO Q6H Qty: 40 RF: 0 Lantus Solostar U-100 Insulin 100 unit/mL (3 mL) insulin pen 36 unit SUBCUT QHS RF: 0 phenazopyridine [Pyridium] 100 mg tablet 100 mg PO TID PRN (Reason: pain) Qty: 6 RF: 0 fluconazole [Diflucan] 150 mg tablet 150 mg PO .once 1 Days RF: 0 glimepiride 2 mg tablet 4 mg PO BID RF: 0 nadolol 80 mg tablet 80 mg PO BID RF: 0 Primary Care Provider: Cristal Wolf Referrals: Cristal Wolf MD [Primary Care Provider] - 3-5 Days Disposition Disposition: Home, Self Care
[2021-09-08] MEDS: Metoclopramide 10 MG/2 ML Vial IV (10:36)
[2021-09-08] MEDS: Ketorolac 15 MG/ML Vial IV (10:36)
[2021-09-08] MEDS: DiphenhydrAMINE 50 MG/ML Syringe 25 MG IV (10:36)
[2021-09-08] MEDS: 0.9% Normal Saline 1,000 ML 1000 ML IV (10:36)
[2021-09-08] MEDS: dexAMETHasone 10 MG/ML Vial IV (11:21)
== END 2021-09-08 11:24 | disposition home or self-care (01) ==
PROVIDERS: Emergency Provider Emergency Medicine; PCP Internal Medicine
DX: G43.909 Migraine, unspecified, not intractable, without status migrainosus (principal); Z87.891 Personal history of nicotine dependence
CPT/HCPCS: 96374; 96375; 99282; J7030; A4216

== ENCOUNTER 2021-10-01 15:34 | Emergency (ER) | payer MEDICAID, SELFPAY ==
[2021-10-01 15:35] VITALS: BP 154/93; PULSE 73; RESP 16; TEMP 36.3; O2SAT 96; BMI 49.4
--- NOTE | 2021-10-01 15:43 | EKG12_ITS ---
Test Reason : PALPITATIONS Blood Pressure : / mmHG Vent. Rate : 076 BPM Atrial Rate : 076 BPM P-R Int : 182 ms QRS Dur : 104 ms QT Int : 386 ms P-R-T Axes : 040 -20 -13 degrees QTc Int : 434 ms Normal sinus rhythm ST & T wave abnormality, consider anterolateral ischemia Abnormal ECG Confirmed by GINGER RIZO, VENU ([id number]), food expeditor KARMEN ORTIZ ([id number]) on 10/04/2021 11:26:20 AM Referred By: KATRINA/MICHAEL Confirmed By:VENU MILES MD
[2021-10-01 16:10] LABS: Absolute Lymphocyte Count 0.73 X10^3/uL (0.83-4.51); Absolute Neutrophil Count 3.2 X10^3/uL (2.0-7.7); Basophil# 0.01 X10^3/uL; Basophil% 0.2 % (0-1); Hematocrit 36.4 % (37-47); Hemoglobin 11.4 g/dL (12.0-15.0); Lymphocyte # 0.73 X10^3/ul (0.83-4.51); Lymphocyte % 16.4 % (19-41); Mean Corp Hgb Conc 31.3 g/dL (32-36); Mean Corpuscular Hgb 24.8 pg (27.0-32.0); Mean Corpuscular Volume 79.1 fL (81-99); Mean Platelet Vol. 9.6 fl (6.2-12.0); Monocyte# 0.47 X10^3/uL; Monocyte% 10.6 % (0-10); NRBC Flagged by Analyzer 0 % (0-5); Neutrophil # 3.21 X10^3/uL (2.7-7.7); Neutrophil % 72.3 % (47-70); Platelet Count 180 K/mm3 (150-450); RBC Distribution Width CV 15.5 % (11.6-14.6); RBC Distribution Width SD 44.2 fl (35.1-43.9); White Blood Count 4.4 K/mm3 (4.4-11.0)
--- NOTE | 2021-10-01 16:15 | RAD_ITS ---
STUDY: X-RAY CHEST REASON FOR EXAM: Female, 55 years old. Chest pain TECHNIQUE: Frontal view COMPARISON: 06/25/2021 FINDINGS: The lungs are not fully expanded. Elevated right hemidiaphragm with basilar atelectasis. Normal size heart. Normal mediastinum and keli. Normal visualized pulmonary arteries. Normal visualized aortic arch and descending thoracic aorta. Degenerative changes of the thoracic spine. Normal visualized ribs, clavicles, and shoulders. There is no demonstrated abnormality of the visualized soft tissue structures of the upper abdomen. RAD/Chest 1 View (Portable) IMPRESSION: Elevated right hemidiaphragm with basilar atelectasis. Electronically Signed: Jamaal Scruggs DO at 16:27 EST Tel [phone], Service support ,
[2021-10-01 16:33] LABS: Anion Gap 5 (5-15); BUN 12 mg/dL (7-18); BUN/Creat Ratio 12.6 RATIO (10-20); Calcium,Total 8.9 mg/dL (8.5-10.1); Chloride 101 mmol/L (98-107); Creatinine, Serum 0.96 mg/dL (0.55-1.02); EST Glomerular Filtration Rate 64 mL/min (>60); Est Glom Filt Rate - Afr Amer 77 mL/min (>60); Estimated Creatinine Clearance 58.18 ml/min; Glucose 193 mg/dL (74-106); Potassium 3.6 mmol/L (3.5-5.1); Sodium Level 135 mmol/L (136-145); Troponin-I HS 6 pg/mL (3.0-54.0)
[2021-10-01 16:54] VITALS: O2SAT 95
--- NOTE | 2021-10-01 17:25 | ED.VIS.CHEST ---
HPI History of Present Illness Chief Complaint: Palpitations Informant: patient and spouse/S.O. Narrative Narrative: 55-year-old female presenting to the emergency department with palpitations. Patient states that she is worn a Holter monitor in the past and was diagnosed with PVCs. She states that she sees Dr. Craig for this. She states when she woke this morning she seemed that she was having more palpitations than normal. She states she has felt that perhaps she is using her inhaler more than normal. But she does not seem to have fever or change in cough or sputum. Patient denies chest pain. [facility] Medical History (Updated 10/01/21 @ 17:[address] Rob Bey, DO) ADHD (attention deficit hyperactivity disorder) Arthritis Asthma Back pain Benign hypertension Bipolar disorder Chest pain COPD (chronic obstructive pulmonary disease) Diabetes mellitus type 2, uncontrolled, with complications Essential hypertension Fatigue GERD (gastroesophageal reflux disease) Hemorrhoids Knee pain Migraines Migraines Obstructive sleep apnea Open wound of left lower extremity Pain syndrome, chronic Stasis dermatitis of both legs Super obese Venous insufficiency of both lower extremities Home Medications bupropion HCl 450 mg PO DAILY 03/05/17 [History Last Taken 07/07/18] buspirone 20 mg PO TID 03/05/17 [History Last Taken 07/07/18] oxybutynin chloride 15 mg PO QHS 03/05/17 [History Last Taken 07/06/18] omeprazole 10 mg capsule,delayed release 40 mg PO DAILY 02/18/18 [History Last Taken 07/07/18] valacyclovir 1 gram tablet 1,000 mg PO DAILY 02/18/18 [History Last Taken 04/17/18] tramadol 100 mg PO Q6H PRN PRN 03/11/18 [History Last Taken 04/17/18] albuterol sulfate 2 puff INHALATION Q4H PRN PRN 05/29/18 [History Last Taken 07/07/18] glimepiride 2 mg tablet 4 mg PO BID tab 09/20/18 [History Last Taken Unknown] insulin glargine 34 unit SUBCUT DAILY 10/07/18 [History Last Taken Unknown] rizatriptan 5 mg PO DAILY PRN 10/07/18 [History Last Taken Unknown] pregabalin 75 mg PO TID 11/25/18 [History Last Taken Unknown] insulin lispro 0 - 100 unit SQ TIDCM 12/05/18 [History Last Taken Unknown] liraglutide 0.8 mg SQ DAILY 12/05/18 [History Last Taken Unknown] dicyclomine 20 mg PO TIDAC #20 cap 07/28/19 [Rx Last Taken Unknown] escitalopram oxalate 20 mg PO DAILY 08/04/19 [History Last Taken Unknown] fluticasone propionate 2 spray NASAL DAILY 08/04/19 [History Last Taken Unknown] primidone 100 mg PO 4X/DAY 08/04/19 [History Last Taken Unknown] ondansetron 4 mg PO Q8H PRN PRN 09/22/19 [History Last Taken Unknown] paliperidone 9 mg PO DAILY 03/16/20 [History Last Taken Unknown] tizanidine 4 mg PO PRN PRN 07/15/20 [History Last Taken Unknown] aspirin 81 mg PO DAILY@0800 tab.chew 07/17/20 [Rx Last Taken Unknown] lisinopril 20 mg PO DAILY #30 tab 07/17/20 [Rx Last Taken Unknown] quetiapine 100 mg PO QHS 11/22/20 [History Last Taken Unknown] lorazepam 1 mg PO TID PRN #10 tab 11/28/20 [Rx Last Taken Unknown] cephalexin 500 mg PO Q6H #40 cap 04/21/21 [Rx Last Taken Unknown] insulin glargine [Lantus Solostar U-100 Insulin] 36 unit SUBCUT QHS 06/13/21 [History Last Taken Unknown] nadolol 80 mg tablet 80 mg PO BID tab 07/08/21 [History Last Taken Unknown] fluconazole [Diflucan] 150 mg PO .once 1 Days tab 07/18/21 [Rx Last Taken Unknown] phenazopyridine [Pyridium] 100 mg PO TID PRN #6 tab 07/18/21 [Rx Last Taken Unknown] Allergy/AdvReac Type Severity Reaction Status Date / Time vancomycin Allergy Severe BURNING Verified 10/01/21 15:37 RED RASH ON LEGGS cefazolin sodium [From Ancef] Allergy Hives Verified 10/01/21 15:37 Penicillins Allergy Hives Verified 10/01/21 15:37 sumatriptan [From Imitrex] Allergy Shortness Verified 10/01/21 15:37 of breath ziprasidone [From Geodon] AdvReac NEEDS Verified 10/01/21 15:37 FOLLOW-UP Family History Father CVA (cerebral vascular accident) Heart disease Mother Heart disease Surgical History H/O hernia repair History of arthroscopic knee surgery History of elbow surgery (~06/2020) History of left heart catheterization (07/16/20) Hx of section Hx of hysterectomy Kidney stone Social History Smoking Status: Never smoker alcohol intake: current alcohol intake frequency: holidays/special occasions only Alcohol type: wine substance use type: does not use caffeine: Yes (occasionally) ROS ROS ED Constitutional Constitutional ED: Denies chills or weight loss Eyes Eyes: Denies change in vision or diplopia ENT ENT ED: Denies ear pain, rhinorrhea or sore throat Cardiovascular Cardiovascular: Reports palpitations; Denies chest pain, orthopnea or racing heartbeat Respiratory/Chest Respiratory/Chest: Reports dyspnea; Denies cough or orthopnea Gastrointestinal Gastrointestinal: Denies abdominal pain, diarrhea, nausea or vomiting Genitourinary Genitourinary ED: Denies dysuria, hematuria or urinary frequency Musculoskeletal Musculoskeletal: Denies arthralgias or myalgias Integumentary Denies abscess or rash Neurologic Neurologic: Denies headache(s) or weakness Psychiatric Psychiatric: Denies anxiety, depression, suicidal ideation or suicidal thoughts Endocrine Endocrinology: Denies polydipsia, polyphagia or polyuria Allergic/Immunologic Allergic/Immunologic ED: Denies mouth swelling, tongue swelling or urticaria EXAM Physical Exam Const Vital Signs: 10/01/21 15:35 10/01/21 16:54 10/01/21 16:57 Temperature 97.4 F L Temperature Source Temporal Pulse Rate 73 Respiratory Rate 16 Respiratory Effort Normal Non-Labored Blood Pressure 154/93 H Blood Pressure Mean 113 Pulse Ox 96 95 Oxygen Delivery Method Room Air Positive well nourished, well developed and obese General Appearance ED: well developed Nutritional Appearance: obese HEENT Reports normocephalic, head/scalp atraumatic, TM's clear and moist mucous membranes normocephalic and atraumatic Tympanic Membrane ED: Yes TM's clear Eyes PERRL and EOMs intact bilaterally Neck no lymphadenopathy, supple and no JVD Resp normal respiratory effort and clear to auscultation bilaterally Cardio regular rate, regular rhythm and no murmurs GI normal to inspection, nondistended, normoactive bowel sounds and non-tender Palpation: soft Back/Spine no CVA tenderness and normal ROM Extremity normal to inspection General Extremety ED: Negative for edema General Extremity: Negative for edema Neuro oriented x3 and CN's II-XII intact bilaterally Sensorium / Orientation: alert Motor Exam: strength 5/5 throughout Psych mental status grossly normal Mood & Affect: Negative for depressed or tearful Skin no rashes or lesions noted and no wounds MDM MDM MDM Narrative Medical decision making narrative: My interpretation of the chest x-ray is no acute process. White count 4.4 with a hemoglobin 11.4. Platelet count of 180. Troponin is 6. Sodium potassium within normal limits. Patient has remained in a sinus rhythm with no ectopy that I have seen. Think she can be discharged home with supportive care return if worsening or concerns Lab Data Attestation: I reviewed the patient's lab results. Labs: Laboratory Results - last 24 hr 10/01/21 10/01/21 15:55 15:55 WBC 4.4 RBC 4.60 Hgb 11.4 L Hct 36.4 L MCV 79.1 L MCH 24.8 L MCHC 31.3 L RDW Std Deviation 44.2 H RDW Coeff of Jocy 15.5 H Plt Count 180 MPV 9.6 Immature Gran % (Auto) 0.500 Neut % (Auto) 72.3 H Lymph % (Auto) 16.4 L [place] % (Auto) 10.6 H Eos % (Auto) 0.0 Baso % (Auto) 0.2 Absolute Neuts (auto) 3.2 Absolute Lymphs (auto) 0.73 L Nucleated RBC % 0 Sodium 135 L Potassium 3.6 Chloride 101 Carbon Dioxide 29.0 Anion Gap 5 BUN 12 Creatinine 0.96 Estim Creat Clear Calc 58.18 Est GFR (MDRD) Af Amer 77 Est GFR (MDRD) Non-Af 64 BUN/Creatinine Ratio 12.6 Glucose 193 H Calcium 8.9 Troponin I High Sens 6 Radiography Diagnostic Testing: Clinical Impression(s) from Imaging Studies Chest X-Ray 10/01/21 16:15 IMPRESSION: Elevated right hemidiaphragm with basilar atelectasis. Electronically Signed: Jamaal Scruggs DO at 16:27 EST Tel [phone], Service support , EKG Initial EKG: Attestation: I personally reviewed and interpreted this EKG as follows: Comments: Normal sinus rhythm with a ventricular rate of 76 bpm Prior: Unchanged Discharge Plan Triage Chief Complaint: Palpitations ED Provider: Rob Bey Dx/Rx/DC Orders Clinical Impression: Palpitations Instructions: ED Palpitations Prescriptions: No Action valacyclovir 1 gram tablet 1,000 mg PO DAILY RF: 0 omeprazole 10 mg capsule,delayed release(DR/EC) 40 mg PO DAILY RF: 0 oxybutynin chloride 15 MG tablet extended release 24 hr 15 mg PO QHS RF: 0 buspirone 10 MG tablet 20 mg PO TID RF: 0 bupropion HCl 300 MG tablet extended release 24 hr 450 mg PO DAILY RF: 0 tramadol 50 MG tablet 100 mg PO Q6H PRN PRN (Reason: Pain) RF: 0 albuterol sulfate 1 INHALER inhaler 2 puff INHALATION Q4H PRN PRN (Reason: Sob &/Or Wheezing) RF: 0 insulin glargine 100 UNIT/ML insulin pen 34 unit subcut DAILY RF: 0 rizatriptan 5 MG tablet,disintegrating 5 mg PO DAILY PRN (Reason: Migraine Symptoms) RF: 0 pregabalin 75 MG capsule 75 mg PO TID RF: 0 insulin lispro 100 UNIT/ML insulin pen 0 - 100 unit SQ TIDCM RF: 0 liraglutide 0.6 MG/0.1 ML pen injector 0.8 mg SQ DAILY RF: 0 dicyclomine 10 MG capsule 20 mg PO TIDAC Qty: 20 RF: 0 primidone 50 MG tablet 100 mg PO 4X/DAY RF: 0 fluticasone propionate 1 SPRAY spray,suspension 2 spray NASAL DAILY RF: 0 escitalopram oxalate 10 MG tablet 20 mg PO DAILY RF: 0 ondansetron 4 MG tablet 4 mg PO Q8H PRN PRN (Reason: Nausea) RF: 0 paliperidone 6 MG tablet 9 mg PO DAILY RF: 0 tizanidine 4 MG capsule 4 mg PO PRN PRN (Reason: Muscle Spasm) RF: 0 lisinopril 20 MG tablet 20 mg PO DAILY Qty: 30 RF: 2 aspirin 81 MG tablet,chewable 81 mg PO DAILY@0800 RF: 0 quetiapine 100 MG tablet 100 mg PO QHS RF: 0 lorazepam 1 MG tablet 1 mg PO TID PRN (Reason: Anxiety) Qty: 10 RF: 0 cephalexin 500 mg capsule 500 mg PO Q6H Qty: 40 RF: 0 Lantus Solostar U-100 Insulin 100 unit/mL (3 mL) insulin pen 36 unit SUBCUT QHS RF: 0 phenazopyridine [Pyridium] 100 mg tablet 100 mg PO TID PRN (Reason: pain) Qty: 6 RF: 0 fluconazole [Diflucan] 150 mg tablet 150 mg PO .once 1 Days RF: 0 glimepiride 2 mg tablet 4 mg PO BID RF: 0 nadolol 80 mg tablet 80 mg PO BID RF: 0 Primary Care Provider: Cristal Wolf Referrals: Cristal Wolf MD [Primary Care Provider] - As Needed Disposition Disposition: Home, Self Care
[2021-10-01 17:36] VITALS: BP 147/89; PULSE 77; RESP 25; O2SAT 93
== END 2021-10-01 17:38 | disposition home or self-care (01) ==
PROVIDERS: Emergency Provider Emergency Medicine; PCP Internal Medicine
DX: R00.2 Palpitations (principal); E66.9 Obesity, unspecified; F31.9 Bipolar disorder, unspecified; F90.9 Attention-deficit hyperactivity disorder, unspecified type; G47.33 Obstructive sleep apnea (adult) (pediatric); I10 Essential (primary) hypertension; I87.2 Venous insufficiency (chronic) (peripheral); J44.9 Chronic obstructive pulmonary disease, unspecified; Z79.4 Long term (current) use of insulin; Z79.82 Long term (current) use of aspirin
CPT/HCPCS: 71045; 80048; 84484; 85025; 93005; 99284; A4216

== ENCOUNTER 2022-01-12 00:10 | Emergency (ER) | payer MEDICAID, SELFPAY ==
[2022-01-12 00:12] VITALS: BP 106/70; PULSE 66; RESP 23; TEMP 36.4; O2SAT 95; BMI 47.2
--- NOTE | 2022-01-12 00:26 | CT_ITS ---
STUDY: CT BRAIN WITHOUT CONTRAST REASON FOR EXAM: Female, 56 years old. FALL RADIATION DOSAGE (If Supplied By Facility): CTDIvol = ( 44.99 ) mGy, DLP = ( 829.85 ) mGycm TECHNIQUE: Transaxial CT imaging of the brain was performed without administration of intravenous contrast material. Individualized dose optimization techniques were used for this CT. COMPARISON: September 22, 2019 CT head FINDINGS: Normal soft tissue structures. Normal calvarium. There is mild cerebral atrophy with widening of the extra-axial spaces and ventricular dilatation. Normal white matter tracts of the cerebral hemispheres. Normal basal ganglia and thalami. Normal brainstem. Normal cerebellum. There is no intracranial hemorrhage. There are no findings of an acute ischemic infarction. Normal visualized paranasal sinuses. CT/Brain/Head without Contrast IMPRESSION: Mild atrophy no evidence of acute hemorrhage infarct or edema. No visualized fracture or large superficial soft tissue hematoma. Electronically Signed: Edel Gallegos MD at 2:08 EST Reading Location ID and State: [facility] [place] Tel , Service support ,
--- NOTE | 2022-01-12 00:26 | EKG12_ITS ---
Test Reason : DYSRHYTHMIA Blood Pressure : / mmHG Vent. Rate : 062 BPM Atrial Rate : 062 BPM P-R Int : 196 ms QRS Dur : 106 ms QT Int : 418 ms P-R-T Axes : 036 -05 -35 degrees QTc Int : 424 ms Normal sinus rhythm ST & T wave abnormality, consider anterolateral ischemia ST & T wave abnormality, consider inferior ischemia Abnormal ECG Confirmed by AMY RIZO, NICHOLAS ([id number]), multimedia editor KARMEN ORTIZ ([id number]) on 01/14/2022 9:46:08 AM Referred By: AIMEE Confirmed By:NICHOLAS REYES MD
--- NOTE | 2022-01-12 00:26 | RAD_ITS ---
STUDY: X-RAY CHEST REASON FOR EXAM: Female, 56 years old. Mental status change TECHNIQUE: Single AP portable view x2 of the chest. Study is centered at the level of T10. COMPARISON: October 01, 2021 chest x-ray FINDINGS: Lungs are underexpanded. The patchy densities within the lung bases. Normal size heart. Normal mediastinum and keli. Normal visualized pulmonary arteries. Normal visualized aortic arch and descending thoracic aorta. Normal visualized thoracic spine. Normal visualized ribs, clavicles, and shoulders. There is no demonstrated abnormality of the visualized soft tissue structures of the upper abdomen. RAD/Chest 1 View (Portable) IMPRESSION: Underexpansion of the lungs. Lower lobe atelectasis and/or infiltrates. Electronically Signed: Edel Gallegos MD at 2:00 EST ,
[2022-01-12 01:21] LABS: Absolute Lymphocyte Count 0.75 X10^3/uL (0.83-4.51); Absolute Neutrophil Count 3.2 X10^3/uL (2.0-7.7); Hematocrit 35.6 % (37-47); Hemoglobin 11.6 g/dL (12.0-15.0); Lymphocyte # 0.75 X10^3/ul (0.83-4.51); Lymphocyte % 16.8 % (19-41); Mean Corp Hgb Conc 32.6 g/dL (32-36); Mean Corpuscular Hgb 25.1 pg (27.0-32.0); Mean Corpuscular Volume 76.9 fL (81-99); Mean Platelet Vol. 9.7 fl (6.2-12.0); Monocyte# 0.48 X10^3/uL; Monocyte% 10.7 % (0-10); NRBC Flagged by Analyzer 0 % (0-5); Neutrophil # 3.23 X10^3/uL (2.7-7.7); Neutrophil % 72.3 % (47-70); Platelet Count 171 K/mm3 (150-450); RBC Distribution Width CV 14.9 % (11.6-14.6); RBC Distribution Width SD 41.5 fl (35.1-43.9); Red Blood Count 4.63 M/mm3 (4.2-5.4); White Blood Count 4.5 K/mm3 (4.4-11.0)
[2022-01-12 01:36] LABS: Alcohol, Blood (Medical)-Serum < 3.0 mg/dL
[2022-01-12 01:41] LABS: AST(SGOT) 10 U/L (15-37); Alanine Aminotransfer ALT/SGPT 14 U/L (13-56); Albumin, Serum 2.4 g/dL (3.2-5.0); Alkaline Phosphatase 73 U/L (45-117); Anion Gap 5 (5-15); BUN 24 mg/dL (7-18); BUN/Creat Ratio 25.5 RATIO (10-20); Bilirubin, Direct 0.12 mg/dL (0.00-0.30); Calcium,Total 9.1 mg/dL (8.5-10.1); Chloride 96 mmol/L (98-107); Creatinine, Serum 0.94 mg/dL (0.55-1.02); EST Glomerular Filtration Rate 65 mL/min (>60); Est Glom Filt Rate - Afr Amer 78 mL/min (>60); Globulin 3.8 g/dL (2.2-4.2); Glucose 399 mg/dL (74-106); Protein, Total 6.2 g/dL (6.4-8.2); Sodium Level 129 mmol/L (136-145)
[2022-01-12 02:05] VITALS: BP 110/71; PULSE 65; RESP 18; O2SAT 95
--- NOTE | 2022-01-12 02:05 | ED.RN ---
PURE WICK PLACED FOR PT COMFORT.
[2022-01-12 02:24] LABS: Amphetamine Urine VISTA NEGATIVE (<1000 ng/mL); Barbiturate Urine VISTA POSITIVE (< 200 ng/mL); Benzodiazepine Urine VISTA NEGATIVE (< 200 ng/mL); Cocaine Urine VISTA NEGATIVE (< 300 ng/mL); Ecstacy Urine VISTA NEGATIVE (< 500 ng/mL); Methadone Urine VISTA NEGATIVE (< 300 ng/mL); PCP Urine VISTA NEGATIVE (< 25 ng/mL); THC Urine VISTA NEGATIVE (< 50 ng/mL); Vista UDS pH Range 6
[2022-01-12] MEDS: 0.9% Normal Saline 1,000 ML 150 ML IV (02:36)
[2022-01-12 04:01] VITALS: BP 86/62; PULSE 56; RESP 20; O2SAT 98
--- NOTE | 2022-01-12 04:22 | EDS_ITS ---
HPI History of Present Illness Chief Complaint: Mental Status Change Informant: patient Narrative Narrative: Patient arrives via EMS after fall and altered mental status. Patient states that she was having increased pain last night when she went to bed. When she took her bedtime meds she took 2 extra tramadol tabs for a total of 4 tabs. She later got up to go the bathroom and fell. She denies any injury from her fall. Her son called EMS due to altered mental status. [facility] Medical History ADHD (attention deficit hyperactivity disorder) Arthritis Asthma Back pain Benign hypertension Bipolar disorder Chest pain COPD (chronic obstructive pulmonary disease) Diabetes mellitus type 2, uncontrolled, with complications Essential hypertension Fatigue GERD (gastroesophageal reflux disease) Hemorrhoids Knee pain Migraines Obstructive sleep apnea Open wound of left lower extremity Pain syndrome, chronic Stasis dermatitis of both legs Super obese Venous insufficiency of both lower extremities Home Medications bupropion HCl 450 mg PO DAILY 03/05/17 [History Last Taken 07/07/18] buspirone 20 mg PO TID 03/05/17 [History Last Taken 07/07/18] oxybutynin chloride 15 mg PO QHS 03/05/17 [History Last Taken 07/06/18] omeprazole 10 mg capsule,delayed release 40 mg PO DAILY 02/18/18 [History Last Taken 07/07/18] valacyclovir 1 gram tablet 1,000 mg PO DAILY 02/18/18 [History Last Taken 04/17/18] tramadol 100 mg PO Q6H PRN PRN 03/11/18 [History Last Taken 04/17/18] albuterol sulfate 2 puff INHALATION Q4H PRN PRN 05/29/18 [History Last Taken 07/07/18] glimepiride 2 mg tablet 4 mg PO BID tab 09/20/18 [History Last Taken Unknown] insulin glargine 34 unit SUBCUT DAILY 10/07/18 [History Last Taken Unknown] rizatriptan 5 mg PO DAILY PRN 10/07/18 [History Last Taken Unknown] pregabalin 75 mg PO TID 10/14/18 [History Last Taken Unknown] insulin lispro 0 - 100 unit SQ TIDCM 12/05/18 [History Last Taken Unknown] dicyclomine 20 mg PO TIDAC #20 cap 07/28/19 [Rx Last Taken Unknown] escitalopram oxalate 20 mg PO DAILY 08/04/19 [History Last Taken Unknown] fluticasone propionate 2 spray NASAL DAILY 08/04/19 [History Last Taken Unknown] primidone 100 mg PO 4X/DAY 08/04/19 [History Last Taken Unknown] ondansetron 4 mg PO Q8H PRN PRN 09/22/19 [History Last Taken Unknown] tizanidine 4 mg PO PRN PRN 07/15/20 [History Last Taken Unknown] aspirin 81 mg PO DAILY@0800 tab.chew 07/17/20 [Rx Last Taken Unknown] lisinopril 20 mg PO DAILY #30 tab 07/17/20 [Rx Last Taken Unknown] quetiapine 100 mg PO QHS 11/22/20 [History Last Taken Unknown] lorazepam 1 mg PO TID PRN #10 tab 11/28/20 [Rx Last Taken Unknown] insulin glargine [Lantus Solostar U-100 Insulin] 36 unit SUBCUT QHS 06/13/21 [History Last Taken Unknown] nadolol 80 mg tablet 80 mg PO BID tab 07/08/21 [History Last Taken Unknown] paliperidone palm (3-month) 819 mg/2.625 mL intramuscular syringe 819 mg IM [id number] 12/10/21 [History Last Taken Unknown] Allergy/AdvReac Type Severity Reaction Status Date / Time vancomycin Allergy Severe BURNING Verified 12/10/21 09:23 RED RASH ON LEGGS cefazolin sodium [From Ancef] Allergy Hives Verified 12/10/21 09:23 Penicillins Allergy Hives Verified 12/10/21 09:23 sumatriptan [From Imitrex] Allergy Shortness Verified 12/10/21 09:23 of breath ziprasidone [From Geodon] AdvReac NEEDS Verified 12/10/21 09:23 FOLLOW-UP Family History Father CVA (cerebral vascular accident) Heart disease Mother Heart disease Surgical History H/O hernia repair History of arthroscopic knee surgery History of elbow surgery (~06/2020) History of left heart catheterization (07/16/20) Hx of section Hx of hysterectomy Kidney stone Social History Smoking Status: Never smoker alcohol intake: current alcohol intake frequency: holidays/special occasions only Alcohol type: wine substance use type: does not use caffeine: Yes (occasionally) ROS ROS ED Constitutional Constitutional ED: Denies chills or fever(s) Eyes Eyes: Denies blurry vision ENT ENT ED: Denies rhinorrhea or sore throat Cardiovascular Cardiovascular: Denies chest pain or palpitations Respiratory/Chest Respiratory/Chest: Denies cough or dyspnea Gastrointestinal Gastrointestinal: Denies abdominal pain, nausea or vomiting Musculoskeletal Musculoskeletal: Denies myalgias Integumentary Reports other Details: Chronic skin wound to the left perera. Neurologic Neurologic: Denies headache(s) Allergic/Immunologic Allergic/Immunologic ED: Denies mouth swelling or urticaria EXAM Physical Exam Narrative Exam Narrative: Patient sleepy but arousable. She answers questions appropriately. Const Vital Signs: 01/12/22 00:12 01/12/22 02:05 01/12/22 04:01 Temperature 97.5 F L Temperature Source Temporal Pulse Rate 66 65 56 L Respiratory Rate 23 H 18 20 H Blood Pressure 106/70 110/71 86/62 L Blood Pressure Mean 82 84 70 Pulse Ox 95 95 98 Oxygen Delivery Method Nasal Cannula Room Air Room Air Oxygen Flow Rate (L/min) 3 01/12/22 06:33 Temperature Temperature Source Pulse Rate 52 L Respiratory Rate 19 H Blood Pressure 102/67 Blood Pressure Mean 78 Pulse Ox 93 Oxygen Delivery Method Room Air Oxygen Flow Rate (L/min) Positive obese Nutritional Appearance: obese HEENT Reports moist mucous membranes Eyes PERRL and EOMs intact bilaterally Neck supple Chest Wall inspection of chest normal and palpation of chest normal Resp normal respiratory effort and clear to auscultation bilaterally Cardio regular rate and regular rhythm GI non-tender Palpation: soft Extremity Extremity Narrative: 5 x 3 cm healing skin ulceration to the left perera. No surrounding cellulitis. Neuro oriented x3 Sensorium / Orientation: alert MDM MDM MDM Narrative Medical decision making narrative: Lab work, EtOH, tox screen, head CT obtained. Patient observed on lining ironer. Lab Data Attestation: I reviewed the patient's lab results. Labs: Laboratory Results - last 24 hr 01/12/22 01/12/22 01/12/22 01:05 01:05 01:05 WBC 4.5 RBC 4.63 Hgb 11.6 L Hct 35.6 L MCV 76.9 L MCH 25.1 L MCHC 32.6 RDW Std Deviation 41.5 RDW Coeff of Jocy 14.9 H Plt Count 171 MPV 9.7 Immature Gran % (Auto) 0.200 Neut % (Auto) 72.3 H Lymph % (Auto) 16.8 L [place] % (Auto) 10.7 H Eos % (Auto) 0.0 Baso % (Auto) 0.0 Absolute Neuts (auto) 3.2 Absolute Lymphs (auto) 0.75 L Nucleated RBC % 0 Sodium 129 L Potassium 5.0 Chloride 96 L Carbon Dioxide 28.0 Anion Gap 5 BUN 24 H Creatinine 0.94 Estim Creat Clear Calc 58.70 Est GFR (MDRD) Af Amer 78 Est GFR (MDRD) Non-Af 65 BUN/Creatinine Ratio 25.5 H Glucose 399 H Calcium 9.1 Total Bilirubin 0.30 Direct Bilirubin 0.12 AST 10 L ALT 14 Alkaline Phosphatase 73 Total Protein 6.2 L Albumin 2.4 L Globulin 3.8 Urine Opiates Screen Urine Methadone Screen Ur Barbiturates Screen Ur Phencyclidine Scrn Ur Amphetamines Screen U Methamphetamin-MDMA U Benzodiazepines Scrn Urine Cocaine Screen U Cannabinoids Screen Ur Drug Screen Comment Ethyl Alcohol < 3.0 01/12/22 02:05 WBC RBC Hgb Hct MCV MCH MCHC RDW Std Deviation RDW Coeff of Jocy Plt Count MPV Immature Gran % (Auto) Neut % (Auto) Lymph % (Auto) [place] % (Auto) Eos % (Auto) Baso % (Auto) Absolute Neuts (auto) Absolute Lymphs (auto) Nucleated RBC % Sodium Potassium Chloride Carbon Dioxide Anion Gap BUN Creatinine Estim Creat Clear Calc Est GFR (MDRD) Af Amer Est GFR (MDRD) Non-Af BUN/Creatinine Ratio Glucose Calcium Total Bilirubin Direct Bilirubin AST ALT Alkaline Phosphatase Total Protein Albumin Globulin Urine Opiates Screen NEGATIVE Urine Methadone Screen NEGATIVE Ur Barbiturates Screen POSITIVE H Ur Phencyclidine Scrn NEGATIVE Ur Amphetamines Screen NEGATIVE U Methamphetamin-MDMA NEGATIVE U Benzodiazepines Scrn NEGATIVE Urine Cocaine Screen NEGATIVE U Cannabinoids Screen NEGATIVE Ur Drug Screen Comment Ethyl Alcohol Radiography Chest X-Ray - ED: 1 View, Read by ED Physician and Chronic Changes Diagnostic Testing: Clinical Impression(s) from Imaging Studies Brain CT 01/12/22 00:26 IMPRESSION: Mild atrophy no evidence of acute hemorrhage infarct or edema. No visualized fracture or large superficial soft tissue hematoma. Electronically Signed: Edel Gallegos MD at 2:08 EST , Chest X-Ray 01/12/22 00:26 IMPRESSION: Underexpansion of the lungs. Lower lobe atelectasis and/or infiltrates. Electronically Signed: Edel Gallegos MD at 2:00 EST , EKG Initial EKG: Attestation: I personally reviewed and interpreted this EKG as follows: Interpretation: Sinus Rhythm (Sinus at 62. Anterior lateral as well as inferior T wave inversion, unchanged when compared to prior study of September 2021.) Treatment and Re-Evaluation Comments:: Patient's head CT reveals no acute findings. Chest x-ray per my interpretation reveals chronic changes. CBC unremarkable. Chemistry studies reveal a sodium of 129 and a glucose of 399. Corrected serum sodium is 134. LFTs normal. Alcohol level negative. Tox screen positive only for barbiturates. Patient was observed in the emergency room for 6-1/2 hours. At this time she is awake and alert. She denies any pain from her injury. She continues to report that she took 4 tabs of tramadol and is very adamant this was not an attempt to harm herself. Patient will be discharged home with instructions to closely monitor her medications. Discharge Plan Triage Chief Complaint: Mental Status Change ED Provider: Amy Mae Dx/Rx/DC Orders Clinical Impression: Fall, Drug ingestion Instructions: ED ALOC, ED Accidental Ingestion ..., ED Fall Prevention Prescriptions: No Action valacyclovir 1 gram tablet 1,000 mg PO DAILY RF: 0 omeprazole 10 mg capsule,delayed release(DR/EC) 40 mg PO DAILY RF: 0 paliperidone palm (3-month) 819 mg/2.625 mL syringe 819 mg IM [id number] RF: 0 oxybutynin chloride 15 MG tablet extended release 24 hr 15 mg PO QHS RF: 0 buspirone 10 MG tablet 20 mg PO TID RF: 0 bupropion HCl 300 MG tablet extended release 24 hr 450 mg PO DAILY RF: 0 tramadol 50 MG tablet 100 mg PO Q6H PRN PRN (Reason: Pain) RF: 0 albuterol sulfate 1 INHALER inhaler 2 puff INHALATION Q4H PRN PRN (Reason: Sob &/Or Wheezing) RF: 0 insulin glargine 100 UNIT/ML insulin pen 34 unit subcut DAILY RF: 0 rizatriptan 5 MG tablet,disintegrating 5 mg PO DAILY PRN (Reason: Migraine Symptoms) RF: 0 pregabalin 75 MG capsule 75 mg PO TID RF: 0 insulin lispro 100 UNIT/ML insulin pen 0 - 100 unit SQ TIDCM RF: 0 dicyclomine 10 MG capsule 20 mg PO TIDAC Qty: 20 RF: 0 primidone 50 MG tablet 100 mg PO 4X/DAY RF: 0 fluticasone propionate 1 SPRAY spray,suspension 2 spray NASAL DAILY RF: 0 escitalopram oxalate 10 MG tablet 20 mg PO DAILY RF: 0 ondansetron 4 MG tablet 4 mg PO Q8H PRN PRN (Reason: Nausea) RF: 0 tizanidine 4 MG capsule 4 mg PO PRN PRN (Reason: Muscle Spasm) RF: 0 lisinopril 20 MG tablet 20 mg PO DAILY Qty: 30 RF: 2 aspirin 81 MG tablet,chewable 81 mg PO DAILY@0800 RF: 0 quetiapine 100 MG tablet 100 mg PO QHS RF: 0 lorazepam 1 MG tablet 1 mg PO TID PRN (Reason: Anxiety) Qty: 10 RF: 0 Lantus Solostar U-100 Insulin 100 unit/mL (3 mL) insulin pen 36 unit SUBCUT QHS RF: 0 glimepiride 2 mg tablet 4 mg PO BID RF: 0 nadolol 80 mg tablet 80 mg PO BID RF: 0 Primary Care Provider: Cristal Wolf Referrals: Cristal Wolf MD [Primary Care Provider] - 1 Week Disposition Disposition: Home, Self Care
[2022-01-12 06:33] VITALS: BP 102/67; PULSE 52; RESP 19; O2SAT 93
[2022-01-12 06:56] VITALS: BP 102/72; PULSE 56; RESP 20; O2SAT 94
[2022-01-12 07:31] VITALS: BP 105/65; PULSE 50; RESP 21; O2SAT 96
--- NOTE | 2022-01-12 07:49 | ED.RN ---
assisted pt with dressing and getting into wc then car.
== END 2022-01-12 07:49 | disposition home or self-care (01) ==
PROVIDERS: Emergency Provider Emergency Medicine; PCP Internal Medicine; Visit Provider Emergency Medicine
DX: R41.82 Altered mental status, unspecified (principal); J44.9 Chronic obstructive pulmonary disease, unspecified; E11.9 Type 2 diabetes mellitus without complications; I10 Essential (primary) hypertension; K21.9 Gastro-esophageal reflux disease without esophagitis; G47.33 Obstructive sleep apnea (adult) (pediatric); I87.2 Venous insufficiency (chronic) (peripheral)
CPT/HCPCS: 70450; 71045; 80048; 80076; 80307; 82077; 85025; 93005; 99285; J7030; A4216

== ENCOUNTER 2022-01-29 09:13 | Emergency (ER) | payer MEDICAID, SELFPAY ==
[2022-01-29 09:13] VITALS: BP 147/92; PULSE 61; RESP 16; TEMP 36.2; O2SAT 97; BMI 46.4
--- NOTE | 2022-01-29 09:29 | RAD_ITS ---
STUDY: X-RAY - RIGHT KNEE REASON FOR EXAM: Female, 56 years old. Injury/Pain TECHNIQUE: 4 view(s) of the knee. COMPARISON: None. FINDINGS: Normal visualized distal femur. Normal visualized proximal tibia and fibula. Normal proximal tibiofibular articulation. There is severe degenerative arthrosis of the medial femorotibial compartment with severe joint space narrowing. There is mild degenerative arthrosis of the lateral femorotibial compartment. There is severe degenerative arthrosis of the patellofemoral articulation. No joint effusion, there are degenerative spurs and extra-articular calcifications anterior to the tibia likely sequela from previous trauma The soft tissue structures are unremarkable. RAD/Knee 4 or More Views IMPRESSION: Degenerative arthrosis. Electronically Signed: Akshat Roth MD at 9:59 EST ,
--- NOTE | 2022-01-29 09:29 | RAD_ITS ---
STUDY: X-RAY - RIGHT SHOULDER REASON FOR EXAM: Female, 56 years old. Pain, decreased range of motion TECHNIQUE: 3 view(s) of the shoulder. COMPARISON: None. FINDINGS: There is moderate degenerative arthrosis of the glenohumeral articulation. There is degenerative arthrosis of the acromioclavicular joint without inferior osseous spur formation. Normal acromion. Normal humeral head and visualized proximal humerus. The soft tissue structures are unremarkable. Normal visualized pulmonary apex. RAD/Shoulder min 2 Views IMPRESSION: Degenerative arthrosis Electronically Signed: Akshat Roth MD at 9:59 EST ,
[2022-01-29] MEDS: HYDROcodone Bitartrate/Apap 5/325 Tablet PO (09:33)
--- NOTE | 2022-01-29 09:44 | ED.VIS.FALL ---
HPI HPI - Fall History of Present Illness Chief Complaint: Fall Detail of Chief Complaint: Injury right shoulder and knee status post fall Informant: patient Occured/Mechanism Occurred: Hours Mechanism/Context: Yes same level fall and Yes slip Narrative: Patient states she slipped on ice landing on her right side Pain/Injury Pain Location: upper extremity and lower extremity (Right knee. Patient does have a bruise. She states she had to be assisted from the ground. She has pain with weightbearing.) Quality of Pain: Dull and Aching Current Severity: Mild Maximum Severity: Severe Worsened by: Palpation and movement of right upper extremity Relieved by: Adduction and internal rotation of the right upper extremity Associated Symptoms Associated Symptoms: Positive for Loss of function; Negative for Parasthesias, Weakness, Inability to ambulate, Loss of consciousness and Amnesia Narrative Narrative: Patient is a middle-aged woman who slipped on the ice. She landed on her right side. She is clean her right knee and right shoulder pain. She denies hitting her head. She denies amnesia. She denies nausea or vomiting. She denies headache. She denies visual, ocular auditory symptoms. Denies neck pain. She denies paresthesia, anesthesia medics present at time of the fall. She states she had to be assisted because she was unable to get up from the ground. She denies mid or lower back pain. She does have a wound on the left leg and is presently under the care of wound management clinic. Tetanus Immunization: 5-10 years Prior similar symptoms: No Recent Illness/Hospitalization: No PFSH PFS Medical History ADHD (attention deficit hyperactivity disorder) Arthritis Asthma Back pain Benign hypertension Bipolar disorder Chest pain COPD (chronic obstructive pulmonary disease) Diabetes mellitus type 2, uncontrolled, with complications Essential hypertension Fatigue GERD (gastroesophageal reflux disease) Hemorrhoids Knee pain Migraines Obstructive sleep apnea Open wound of left lower extremity Pain syndrome, chronic Stasis dermatitis of both legs Super obese Venous insufficiency of both lower extremities Home Medications bupropion HCl 450 mg PO DAILY 03/05/17 [History Last Taken 07/07/18] oxybutynin chloride 20 mg PO DAILY 03/05/17 [History Last Taken 07/06/18] omeprazole 10 mg capsule,delayed release 40 mg PO DAILY 02/18/18 [History Last Taken 07/07/18] valacyclovir 1 gram tablet 500 mg PO DAILY 02/18/18 [History Last Taken 04/17/18] albuterol sulfate 2 puff INHALATION Q4H PRN PRN 05/29/18 [History Last Taken 07/07/18] glimepiride 2 mg tablet 4 mg PO BID tab 09/20/18 [History Last Taken Unknown] pregabalin 100 mg PO TID 10/14/18 [History Last Taken Unknown] dicyclomine 20 mg PO TIDAC #20 cap 07/28/19 [Rx Last Taken Unknown] escitalopram oxalate 20 mg PO DAILY 08/04/19 [History Last Taken Unknown] fluticasone propionate 2 spray NASAL DAILY 08/04/19 [History Last Taken Unknown] ondansetron 4 mg PO Q8H PRN PRN 09/22/19 [History Last Taken Unknown] tizanidine 4 mg PO BID PRN 07/15/20 [History Last Taken Unknown] aspirin 81 mg PO DAILY@0800 tab.chew 07/17/20 [Rx Last Taken Unknown] quetiapine [Seroquel] 150 mg PO QHS 11/22/20 [History Last Taken Unknown] insulin glargine [Lantus Solostar U-100 Insulin] 38 unit SUBCUT QHS 06/13/21 [History Last Taken Unknown] nadolol 80 mg tablet 80 mg PO BID tab 07/08/21 [History Last Taken Unknown] buspirone [BuSpar] 20 mg PO TID 01/25/22 [History Last Taken Unknown] cetirizine [Zyrtec] 10 mg PO DAILY 01/25/22 [History Last Taken Unknown] colchicine 0.6 mg PO DAILY 01/25/22 [History Last Taken Unknown] diazepam 10 mg PO DAILY PRN 01/25/22 [History Last Taken Unknown] fluconazole 150 mg PO DAILY 01/25/22 [History Last Taken Unknown] fluticasone propion-salmeterol 1 inh INHALATION BID 01/25/22 [History Last Taken Unknown] guaifenesin [Mucinex] 1,200 mg PO BID PRN 01/25/22 [History Last Taken Unknown] hydroxyzine pamoate [Vistaril] 25 - 75 mg PO BID PRN 01/25/22 [History Last Taken Unknown] hyoscyamine sulfate [Levsin] 0.125 mg PO Q6H PRN 01/25/22 [History Last Taken Unknown] ketorolac 10 mg PO Q6H PRN 01/25/22 [History Last Taken Unknown] lactulose 1 - 3 PO BID PRN 01/25/22 [History Last Taken Unknown] lidocaine 1 applic TOPICAL TID PRN 01/25/22 [History Last Taken Unknown] lisinopril 10 mg PO BID 01/25/22 [History Last Taken Unknown] lorazepam [Ativan] 0.5 - 1 mg PO BID PRN 01/25/22 [History Last Taken Unknown] naratriptan [Amerge] 2.5 mg PO Q4H PRN 01/25/22 [History Last Taken Unknown] paliperidone [Invega] 9 mg PO DAILY 01/25/22 [History Last Taken Unknown] primidone 250 mg PO BID 01/25/22 [History Last Taken Unknown] sucralfate 1 g PO 4X/DAY 01/25/22 [History Last Taken Unknown] tramadol 50 - 100 mg PO Q6H PRN 01/25/22 [History Last Taken Unknown] trazodone 150 mg PO QHS 01/25/22 [History Last Taken Unknown] triamcinolone acetonide 1 applic TOPICAL TID PRN 01/25/22 [History Last Taken Unknown] Allergy/AdvReac Type Severity Reaction Status Date / Time vancomycin Allergy Severe BURNING Verified 01/29/22 09:15 RED RASH ON LEGGS amlodipine [From Norvasc] Allergy Swelling Verified 01/29/22 09:15 cefazolin sodium [From Ancef] Allergy Hives Verified 01/29/22 09:15 fexofenadine [From Nia] Allergy Shortness Verified 01/29/22 09:15 of breath nitrofurantoin Allergy Hives Verified 01/29/22 09:15 [From Macrobid] peanut Allergy Shortness Verified 01/29/22 09:15 of breath Penicillins Allergy Hives Verified 01/29/22 09:15 sumatriptan [From Imitrex] Allergy Shortness Verified 01/29/22 09:15 of breath amitriptyline [From Elavil] AdvReac Other Verified 01/29/22 09:15 clindamycin AdvReac Diarrhea Verified 01/29/22 09:15 ziprasidone [From Geodon] AdvReac NEEDS Verified 01/29/22 09:15 FOLLOW-UP duoderm AdvReac Other Uncoded 01/29/22 09:15 Family History Father CVA (cerebral vascular accident) Heart disease Mother Heart disease Surgical History H/O hernia repair History of arthroscopic knee surgery History of elbow surgery (~06/2020) History of left heart catheterization (07/16/20) Hx of section Hx of hysterectomy Kidney stone Social History (Updated 01/29/22 @ 09:[address] Grupo Mascorro MD) household members: spouse Smoking Status: Never smoker alcohol intake: current alcohol intake frequency: holidays/special occasions only Alcohol type: wine substance use type: does not use caffeine: Yes (occasionally) ROS ROS ED Constitutional Constitutional ED: Denies chills, fever(s), subjective or sweats Eyes Eyes: Denies blurry vision or diplopia ENT ENT ED: Reports other Details: No epistaxis. No complaint of dental trauma. ; Denies ear pain, rhinorrhea or sore throat Cardiovascular Cardiovascular: Denies chest pain or palpitations Respiratory/Chest Respiratory/Chest: Denies cough, dyspnea or dyspnea on exertion Gastrointestinal Gastrointestinal: Denies abdominal pain, melena, nausea or vomiting Genitourinary Genitourinary ED: Denies dysuria, hematuria or urinary frequency Musculoskeletal Musculoskeletal: Denies arthralgias, back pain, myalgias or neck pain Integumentary Reports other Details: Wound left leg, chronic ; Denies abscess, Abrasions or rash Neurologic Neurologic: Denies headache(s), paresthesias or weakness Endocrine Endocrinology: Denies polydipsia, polyphagia or polyuria Hematologic/Lymphatic Hematologic/Lymphatic: Denies easy bleeding or easy bruising EXAM Physical Exam Const Vital Signs: 01/29/22 09:13 01/29/22 09:24 Temperature 97.1 F L Temperature Source Temporal Pulse Rate 61 Respiratory Rate 16 Respiratory Effort Normal Blood Pressure 147/92 H Blood Pressure Mean 110 Pulse Ox 97 Oxygen Delivery Method Room Air Positive well nourished, well developed and obese General Appearance ED: well developed; Negative for NAD Nutritional Appearance: obese HEENT Reports normocephalic and TM's clear HEENT Narrative: There is no septal deviation hematoma. There is no clinical signs of basal skull fracture. atraumatic Tympanic Membrane ED: Yes TM's clear Eyes PERRL and EOMs intact bilaterally Eyes Narrative: There is no subconjunctival hemorrhage noted. General Eye ED: Negative for pale conjunctiva or scleral icterus Neck full ROM, no lymphadenopathy and supple General: Negative for tenderness Chest Wall inspection of chest normal Resp normal respiratory effort and clear to auscultation bilaterally Cardio regular rate, regular rhythm, S1 normal heart sound, S2 normal heart sound and no murmurs GI non-tender, non-distended and no masses GI Narrative: There is no pain to palpation of the pelvis, pubic symphysis, iliac wing or sacral area. Auscultation: normoactive bowel sounds Palpation: soft Back/Spine no CVA tenderness Cervical Spine: Negative for cervical spine tenderness Thoracic Spine / Upper Back: Negative for thoracic spinal tenderness Lumbar Spine / Lower Back: Negative for lumbar spinal tenderness Extremity full ROM, normal capillary refill and no calf tenderness; Negative for normal to inspection, no clubbing, cyanosis or edema or no pedal edema Right Upper Extremity: shoulder joint Shoulder Joint Exam - Right: inspection (There is slight soft tissue swelling question of early contusion. Able to AB duct to 60 degrees.), palpation (There is pain ovation of the proximal humerus and clavicle and specifically the AC joint region.), ROM (Abduction to 60 degrees prior to discomfort.), neurovascular exam (Axillary, median, radial and ulnar function intact.) and other (After interpreting x-rays is negative. Had patient. She is able to AB duct past 90 degrees. She had negative drop test.) Right Lower Extremity: knee joint inspection (There is soft tissue swelling with ecchymosis noted medially.), palpation (There is pain no patient medial joint line.), ROM (She is able to hold her leg in extension and 180 degrees. She is able to flex to approximately 100 degrees.) and other (The patellas not blottable. There is no obvious effusion. There is no laxity with varus valgus stress testing. Montserrat step was difficult to perform. There was no laxity appreciated. Unable to perform modified Evita's test.) Neuro oriented x3, CN's II-XII intact bilaterally, moves all extremities and no sensory deficits noted Dennise Coma Scale: document GCS findings Spontaneous Obeys Commands Oriented 15 Sensorium / Orientation: alert Motor Exam: strength 5/5 throughout Psych mental status grossly normal and thought process normal Skin Skin Narrative: Patient does have evidence of venous stasis dermatitis and wound left lower extremity. There is no evidence infection. Lesions: no lesions Rashes: no rashes Trauma: Negative for abrasion or laceration MDM MDM MDM Narrative Medical decision making narrative: X-ray of the shoulder was obtained to rule out fracture. With patient having discomfort and difficulty abduction past 90 degrees this may indicate a rotator cuff tear and need to evaluate for associated fracture. Since patient has joint line tenderness of the right knee will obtain x-ray to rule out fracture. Radiography Diagnostic Testing: Three-view x-ray of the right shoulder reveals arthritic changes involving the AC joint. There is no fracture noted. There is no evidence of subluxation or dislocation. 4 view x-ray of the knee reveals significant arthritic changes. There is no fracture noted. There is asymmetry of the joint. There is no evidence of subluxation or dislocation. There is evidence of atherosclerotic disease. These x-rays were interpreted by me at 0951. Discharge Plan Triage Chief Complaint: Fall ED Provider: Grupo Mascorro Dx/Rx/DC Orders Clinical Impression: Injury due to fall, Contusion of right shoulder, initial encounter, Contusion of right knee, initial encounter Instructions: ED Contusion, Lower Extremity, ED Shoulder Contusion Prescriptions: No Action valacyclovir 1 gram tablet 500 mg PO DAILY RF: 0 omeprazole 10 mg capsule,delayed release(DR/EC) 40 mg PO DAILY RF: 0 oxybutynin chloride 15 MG tablet extended release 24 hr 20 mg PO DAILY RF: 0 bupropion HCl 300 MG tablet extended release 24 hr 450 mg PO DAILY RF: 0 albuterol sulfate 1 INHALER inhaler 2 puff INHALATION Q4H PRN PRN (Reason: Sob &/Or Wheezing) RF: 0 pregabalin 75 MG capsule 100 mg PO TID RF: 0 dicyclomine 10 MG capsule 20 mg PO TIDAC Qty: 20 RF: 0 fluticasone propionate 1 SPRAY spray,suspension 2 spray NASAL DAILY RF: 0 escitalopram oxalate 10 MG tablet 20 mg PO DAILY RF: 0 ondansetron 4 MG tablet 4 mg PO Q8H PRN PRN (Reason: Nausea) RF: 0 tizanidine 4 MG capsule 4 mg PO BID PRN (Reason: Muscle Spasm) RF: 0 aspirin 81 MG tablet,chewable 81 mg PO DAILY@0800 RF: 0 quetiapine [Seroquel] 100 MG tablet 150 mg PO QHS RF: 0 Lantus Solostar U-100 Insulin 100 unit/mL (3 mL) insulin pen 38 unit SUBCUT QHS RF: 0 trazodone 50 mg Tablet 150 mg PO QHS RF: 0 cetirizine [Zyrtec] 10 mg Tablet 10 mg PO DAILY RF: 0 fluconazole 150 mg Tablet 150 mg PO DAILY RF: 0 sucralfate 1 gram Tablet 1 g PO 4X/DAY RF: 0 lidocaine 4 % Cream 1 applic TOPICAL TID PRN (Reason: Pain) RF: 0 tramadol 50 mg Tablet 50 - 100 mg PO Q6H PRN (Reason: Pain) RF: 0 triamcinolone acetonide 0.1 % Cream 1 applic TOPICAL TID PRN (Reason: Rash) RF: 0 ketorolac 10 mg Tablet 10 mg PO Q6H PRN (Reason: SEVERE HEADACHE) RF: 0 primidone 250 mg Tablet 250 mg PO BID RF: 0 lorazepam [Ativan] 0.5 mg Tablet 0.5 - 1 mg PO BID PRN (Reason: Panic Attack(S)) RF: 0 hyoscyamine sulfate [Levsin] 0.125 mg Tablet 0.125 mg PO Q6H PRN (Reason: IBS) RF: 0 buspirone [BuSpar] 10 mg Tablet 20 mg PO TID RF: 0 fluticasone propion-salmeterol 500-50 mcg/dose Blister With Device 1 inh INHALATION BID RF: 0 colchicine 0.6 mg Tablet 0.6 mg PO DAILY RF: 0 naratriptan [Amerge] 2.5 mg Tablet 2.5 mg PO Q4H PRN (Reason: Headache) RF: 0 diazepam 5 mg Tablet 10 mg PO DAILY PRN (Reason: Anxiety) RF: 0 hydroxyzine pamoate [Vistaril] 25 mg Capsule 25 - 75 mg PO BID PRN (Reason: Itching) RF: 0 lactulose 10 gram/15 mL Solution 1 - 3 PO BID PRN (Reason: Constipation) RF: 0 paliperidone [Invega] 9 mg Tablet Extended Release 24hr 9 mg PO DAILY RF: 0 guaifenesin [Mucinex] 600 mg Tablet Extended Release 12hr 1,200 mg PO BID PRN (Reason: Cough) RF: 0 lisinopril 20 MG tablet 10 mg PO BID RF: 0 glimepiride 2 mg tablet 4 mg PO BID RF: 0 nadolol 80 mg tablet 80 mg PO BID RF: 0 Primary Care Provider: Cristal Wolf Referrals: Cristal Wolf MD [Primary Care Provider] - As Needed Activity Restrictions/Additional Instructions: 1. Apply ice to right shoulder and knee 6-8 times a day for the next 3 to 5 days 2. Tylenol for pain. Disposition Disposition: Home, Self Care
== END 2022-01-29 10:03 | disposition home or self-care (01) ==
PROVIDERS: Emergency Provider Emergency Medicine; PCP Internal Medicine; Visit Provider Emergency Medicine
DX: S80.01XA Contusion of right knee, initial encounter (principal); J44.9 Chronic obstructive pulmonary disease, unspecified; E11.9 Type 2 diabetes mellitus without complications; I10 Essential (primary) hypertension; M25.511 Pain in right shoulder; S40.011A Contusion of right shoulder, initial encounter; W00.0XXA Fall on same level due to ice and snow, initial encounter; G47.33 Obstructive sleep apnea (adult) (pediatric)
CPT/HCPCS: 73030; 73564; 99283

== ENCOUNTER 2022-02-08 18:17 | Emergency (ER) | payer MEDICAID, SELFPAY ==
[2022-02-08 18:18] VITALS: BP 178/106; PULSE 95; RESP 18; TEMP 35.9; O2SAT 94; BMI 47.0
--- NOTE | 2022-02-08 18:42 | EDS_ITS ---
HPI History of Present Illness Chief Complaint: Headache Informant: patient Onset/Context/Timing Onset: Weeks (1) Context: Gradual Timing: Intermittent Quality -Headache: Positive for Similar Prior Headaches Location: Frontal headache Worsened by: Nothing Relieved by: Nothing Associated Symptoms/Injury Associated Symptoms: Positive for Nausea, Vomiting, Sinus Pressure, Preceding Aura and Photophobia; Negative for Fever, Sore Throat, Numbness, Tingling, Visual Changes, Blurred Vision and Visual Loss Injury - AG: Negative for Direct Trauma Narrative Narrative: Patient presents with a headache that has been intermittent over the past week. Patient states it came on gradually. Patient states it feels similar to prior migraine headaches. Patient states it is over the frontal area bilaterally. Patient states nothing makes it worse and nothing makes it better. Patient states she feels like she has pressure in her sinuses as well. Patient admits to some nausea and vomiting. Patient denies any fevers or chills. Patient states she did have an aura prior to the headache coming on. Patient also admits to some photophobia. [facility] Medical History ADHD (attention deficit hyperactivity disorder) Arthritis Asthma Back pain Benign hypertension Bipolar disorder Chest pain COPD (chronic obstructive pulmonary disease) Depression Diabetes Diabetes mellitus type 2, uncontrolled, with complications Essential hypertension Fatigue GERD (gastroesophageal reflux disease) Hemorrhoids Knee pain Migraines Obstructive sleep apnea Open wound of left lower extremity Pain syndrome, chronic PTSD (post-traumatic stress disorder) Schizo affective schizophrenia Stasis dermatitis of both legs Super obese Venous insufficiency of both lower extremities Home Medications bupropion HCl 450 mg PO DAILY 03/05/17 [History Last Taken 07/07/18] oxybutynin chloride 20 mg PO DAILY 03/05/17 [History Last Taken 07/06/18] omeprazole 10 mg capsule,delayed release 40 mg PO DAILY 02/18/18 [History Last Taken 07/07/18] valacyclovir 1 gram tablet 500 mg PO DAILY 02/18/18 [History Last Taken 04/17/18] albuterol sulfate 2 puff INHALATION Q4H PRN PRN 05/29/18 [History Last Taken 07/07/18] glimepiride 2 mg tablet 4 mg PO BID tab 09/20/18 [History Last Taken Unknown] pregabalin 100 mg PO TID 10/14/18 [History Last Taken Unknown] dicyclomine 20 mg PO TIDAC #20 cap 07/28/19 [Rx Last Taken Unknown] escitalopram oxalate 20 mg PO DAILY 08/04/19 [History Last Taken Unknown] fluticasone propionate 2 spray NASAL DAILY 08/04/19 [History Last Taken Unknown] ondansetron 4 mg PO Q8H PRN PRN 09/22/19 [History Last Taken Unknown] tizanidine 4 mg PO BID PRN 07/15/20 [History Last Taken Unknown] aspirin 81 mg PO DAILY@0800 tab.chew 07/17/20 [Rx Last Taken Unknown] insulin glargine [Lantus Solostar U-100 Insulin] 38 unit SUBCUT QHS 06/13/21 [History Last Taken Unknown] nadolol 80 mg tablet 80 mg PO BID tab 07/08/21 [History Last Taken Unknown] buspirone [BuSpar] 20 mg PO TID 01/25/22 [History Last Taken Unknown] cetirizine [Zyrtec] 10 mg PO DAILY 01/25/22 [History Last Taken Unknown] colchicine 0.6 mg PO DAILY 01/25/22 [History Last Taken Unknown] diazepam 10 mg PO DAILY PRN 01/25/22 [History Last Taken Unknown] fluconazole 150 mg PO DAILY 01/25/22 [History Last Taken Unknown] fluticasone propion-salmeterol 1 inh INHALATION BID 01/25/22 [History Last Taken Unknown] guaifenesin [Mucinex] 1,200 mg PO BID PRN 01/25/22 [History Last Taken Unknown] hydroxyzine pamoate [Vistaril] 25 - 75 mg PO BID PRN 01/25/22 [History Last Ta rodriguez Unknown] hyoscyamine sulfate [Levsin] 0.125 mg PO Q6H PRN 01/25/22 [History Last Taken Unknown] ketorolac 10 mg PO Q6H PRN 01/25/22 [History Last Taken Unknown] lactulose 1 - 3 PO BID PRN 01/25/22 [History Last Taken Unknown] lidocaine 1 applic TOPICAL TID PRN 01/25/22 [History Last Taken Unknown] lisinopril 10 mg PO BID 01/25/22 [History Last Taken Unknown] lorazepam [Ativan] 0.5 - 1 mg PO BID PRN 01/25/22 [History Last Taken Unknown] naratriptan [Amerge] 2.5 mg PO Q4H PRN 01/25/22 [History Last Taken Unknown] paliperidone [Invega] 9 mg PO DAILY 01/25/22 [History Last Taken Unknown] primidone 250 mg PO BID 01/25/22 [History Last Taken Unknown] tramadol 50 - 100 mg PO Q6H PRN 01/25/22 [History Last Taken Unknown] trazodone 150 mg PO QHS 01/25/22 [History Last Taken Unknown] triamcinolone acetonide 1 applic TOPICAL TID PRN 01/25/22 [History Last Taken Unknown] Allergy/AdvReac Type Severity Reaction Status Date / Time vancomycin Allergy Severe BURNING Verified 02/08/22 18:49 RED RASH ON LEGGS amlodipine [From Norvasc] Allergy Swelling Verified 02/08/22 18:49 cefazolin sodium [From Ancef] Allergy Hives Verified 02/08/22 18:49 fexofenadine [From Nia] Allergy Shortness Verified 02/08/22 18:49 of breath nitrofurantoin Allergy Hives Verified 02/08/22 18:49 [From Macrobid] peanut Allergy Shortness Verified 02/08/22 18:49 of breath Penicillins Allergy Hives Verified 02/08/22 18:49 sumatriptan [From Imitrex] Allergy Shortness Verified 02/08/22 18:49 of breath amitriptyline [From Elavil] AdvReac Other Verified 02/08/22 18:49 clindamycin AdvReac Diarrhea Verified 02/08/22 18:49 ziprasidone [From Geodon] AdvReac NEEDS Verified 02/08/22 18:49 FOLLOW-UP duoderm AdvReac Other Uncoded 02/08/22 18:49 Family History Father CVA (cerebral vascular accident) Heart disease Mother Heart disease Surgical History H/O hernia repair History of arthroscopic knee surgery History of elbow surgery (~06/2020) History of left heart catheterization (07/16/20) Hx of section Hx of hysterectomy Kidney stone Social History household members: spouse Smoking Status: Never smoker alcohol intake: current alcohol intake frequency: holidays/special occasions only Alcohol type: wine substance use type: does not use caffeine: Yes (occasionally) ROS ROS ED Constitutional Constitutional ED: Denies chills or fever(s) Eyes Eyes: Denies blurry vision or change in vision ENT ENT ED: Denies rhinorrhea or sore throat Cardiovascular Cardiovascular: Denies chest pain or palpitations Respiratory/Chest Respiratory/Chest: Denies cough or dyspnea Gastrointestinal Gastrointestinal: Reports nausea and vomiting Genitourinary Genitourinary ED: Denies dysuria or hematuria Musculoskeletal Musculoskeletal: Denies back pain or neck pain Integumentary Denies abscess or rash Neurologic Neurologic: Reports headache(s); Denies weakness Allergic/Immunologic Allergic/Immunologic ED: Denies mouth swelling or urticaria EXAM Physical Exam Const Vital Signs: 02/08/22 18:18 02/08/22 20:17 02/08/22 22:07 Temperature 96.7 F L Temperature Source Temporal Pulse Rate 95 76 Respiratory Rate 18 18 16 Blood Pressure 178/106 H Blood Pressure Mean 130 Pulse Ox 94 99 Oxygen Delivery Method Room Air Room Air Room Air Positive well nourished, well developed and obese General Appearance ED: well developed and NAD Nutritional Appearance: obese HEENT Reports moist mucous membranes Eyes PERRL and EOMs intact bilaterally Neck supple and no JVD Resp normal respiratory effort and clear to auscultation bilaterally Cardio regular rate, regular rhythm and no murmurs GI normal to inspection, nondistended, normoactive bowel sounds, non-tender and non-distended Palpation: soft Extremity normal to inspection General Extremety ED: Negative for edema or tenderness General Extremity: Negative for edema Neuro oriented x3, CN's II-XII intact bilaterally and no sensory deficits noted Sensorium / Orientation: alert Motor Exam: strength 5/5 throughout Psych mental status grossly normal Skin no rashes or lesions noted MDM MDM MDM Narrative Medical decision making narrative: Patient was given Reglan and Benadryl initially. Patient was given IV fluids. CT scan of the brain was obtained. There is no acute intracranial abnormality. This was interpreted by the radiologist and reviewed by myself. Patient states her headache improved to a 7. Patient was given a dose of Toradol. Patient was instructed to rest in a dark quiet room. Patient was instructed to follow-up with her primary care paresh finnegan in 5 to 7 days. Patient understood and was agreeable with the plan. All questions were answered. Radiography Diagnostic Testing: Clinical Impression(s) from Imaging Studies Brain CT 02/08/22 18:48 IMPRESSION: There are no acute intracranial findings. Electronically Signed: Willy Cole MD at 19:53 EDT Reading Location ID and State: [facility] / [place] , Service support , Discharge Plan Triage Chief Complaint: Headache ED Provider: Marek Bailey Dx/Rx/DC Orders Clinical Impression: Migraine headache Instructions: ED, Migraine (Classical) Prescriptions: No Action valacyclovir 1 gram tablet 500 mg PO DAILY RF: 0 omeprazole 10 mg capsule,delayed release(DR/EC) 40 mg PO DAILY RF: 0 oxybutynin chloride 15 MG tablet extended release 24 hr 20 mg PO DAILY RF: 0 bupropion HCl 300 MG tablet extended release 24 hr 450 mg PO DAILY RF: 0 albuterol sulfate 1 INHALER inhaler 2 puff INHALATION Q4H PRN PRN (Reason: Sob &/Or Wheezing) RF: 0 pregabalin 75 MG capsule 100 mg PO TID RF: 0 dicyclomine 10 MG capsule 20 mg PO TIDAC Qty: 20 RF: 0 fluticasone propionate 1 SPRAY spray,suspension 2 spray NASAL DAILY RF: 0 escitalopram oxalate 10 MG tablet 20 mg PO DAILY RF: 0 ondansetron 4 MG tablet 4 mg PO Q8H PRN PRN (Reason: Nausea) RF: 0 tizanidine 4 MG capsule 4 mg PO BID PRN (Reason: Muscle Spasm) RF: 0 aspirin 81 MG tablet,chewable 81 mg PO DAILY@0800 RF: 0 Lantus Solostar U-100 Insulin 100 unit/mL (3 mL) insulin pen 38 unit SUBCUT QHS RF: 0 trazodone 50 mg Tablet 150 mg PO QHS RF: 0 cetirizine [Zyrtec] 10 mg Tablet 10 mg PO DAILY RF: 0 fluconazole 150 mg Tablet 150 mg PO DAILY RF: 0 lidocaine 4 % Cream 1 applic TOPICAL TID PRN (Reason: Pain) RF: 0 tramadol 50 mg Tablet 50 - 100 mg PO Q6H PRN (Reason: Pain) RF: 0 triamcinolone acetonide 0.1 % Cream 1 applic TOPICAL TID PRN (Reason: Rash) RF: 0 ketorolac 10 mg Tablet 10 mg PO Q6H PRN (Reason: SEVERE HEADACHE) RF: 0 primidone 250 mg Tablet 250 mg PO BID RF: 0 lorazepam [Ativan] 0.5 mg Tablet 0.5 - 1 mg PO BID PRN (Reason: Panic Attack(S)) RF: 0 hyoscyamine sulfate [Levsin] 0.125 mg Tablet 0.125 mg PO Q6H PRN (Reason: IBS) RF: 0 buspirone [BuSpar] 10 mg Tablet 20 mg PO TID RF: 0 fluticasone propion-salmeterol 500-50 mcg/dose Blister With Device 1 inh INHALATION BID RF: 0 colchicine 0.6 mg Tablet 0.6 mg PO DAILY RF: 0 naratriptan [Amerge] 2.5 mg Tablet 2.5 mg PO Q4H PRN (Reason: Headache) RF: 0 diazepam 5 mg Tablet 10 mg PO DAILY PRN (Reason: Anxiety) RF: 0 hydroxyzine pamoate [Vistaril] 25 mg Capsule 25 - 75 mg PO BID PRN (Reason: Itching) RF: 0 lactulose 10 gram/15 mL Solution 1 - 3 PO BID PRN (Reason: Constipation) RF: 0 paliperidone [Invega] 9 mg Tablet Extended Release 24hr 9 mg PO DAILY RF: 0 guaifenesin [Mucinex] 600 mg Tablet Extended Release 12hr 1,200 mg PO BID PRN (Reason: Cough) RF: 0 lisinopril 20 MG tablet 10 mg PO BID RF: 0 glimepiride 2 mg tablet 4 mg PO BID RF: 0 nadolol 80 mg tablet 80 mg PO BID RF: 0 Primary Care Provider: Cristal Wolf Referrals: Cristal Wolf MD [Primary Care Provider] - 3-5 Days Disposition Disposition: Home, Self Care
--- NOTE | 2022-02-08 18:48 | CT_ITS ---
STUDY: CT BRAIN WITHOUT CONTRAST REASON FOR EXAM: Female, 56 years old. temporal headache x 7 days, hx diabetes, hypertension. Pain TECHNIQUE: Transaxial CT imaging of the brain was performed without administration of intravenous contrast material. Individualized dose optimization techniques were used for this CT. COMPARISON: 01.12.22 FINDINGS: Normal calvarium. Normal soft tissues. Normal size ventricles and extra-axial spaces for the patient''s age. Normal white matter tracts of the cerebral hemispheres. Normal basal ganglia and thalami. Normal brainstem. Normal cerebellum. There is no intracranial hemorrhage. There are no findings of an acute ischemic infarction. Normal visualized paranasal sinuses. ASPECTS 10 CT/Brain/Head without Contrast IMPRESSION: There are no acute intracranial findings. Electronically Signed: Willy Cole MD at 19:53 EDT ,
[2022-02-08] MEDS: 0.9% Normal Saline 1,000 ML 999 ML IV (19:07)
[2022-02-08] MEDS: Metoclopramide 10 MG/2 ML Vial IV (19:09)
[2022-02-08] MEDS: DiphenhydrAMINE 50 MG/ML Syringe 25 MG IV (19:16)
[2022-02-08 20:17] VITALS: RESP 18
[2022-02-08 22:07] VITALS: PULSE 76; RESP 16; O2SAT 99
[2022-02-08] MEDS: Ketorolac 30 MG/ML Syringe IV (22:39)
== END 2022-02-08 23:07 | disposition home or self-care (01) ==
PROVIDERS: Emergency Provider Emergency Medicine; PCP Internal Medicine; Visit Provider Emergency Medicine
DX: G43.909 Migraine, unspecified, not intractable, without status migrainosus (principal); L97.222 Non-pressure chronic ulcer of left calf with fat layer exposed; L97.329 Non-pressure chronic ulcer of left ankle with unspecified severity; J44.9 Chronic obstructive pulmonary disease, unspecified; F31.9 Bipolar disorder, unspecified; E11.40 Type 2 diabetes mellitus with diabetic neuropathy, unspecified; I73.89 Other specified peripheral vascular diseases; E66.01 Morbid (severe) obesity due to excess calories; E11.9 Type 2 diabetes mellitus without complications; Z79.4 Long term (current) use of insulin; I10 Essential (primary) hypertension; K21.9 Gastro-esophageal reflux disease without esophagitis; M79.7 Fibromyalgia; Z79.82 Long term (current) use of aspirin; Z79.899 Other long term (current) drug therapy; L90.5 Scar conditions and fibrosis of skin; Z79.84 Long term (current) use of oral hypoglycemic drugs
CPT/HCPCS: 11042; 70450; 96361; 96374; 96375; 99284; J7030; A4216

== ENCOUNTER 2022-02-15 09:30 | Outpatient (RCR) | payer MEDICAID, SELFPAY ==
[2022-01-25 10:10] VITALS: BP 136/74; PULSE 68; TEMP 35.8
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
[2022-02-08 09:07] VITALS: BP 154/94; PULSE 82; RESP 20; TEMP 36.4
--- NOTE | 2022-02-08 09:54 | PCM.WC.PN ---
History of Present Illness Date of Service: 02/08/22 Chief Complaint: Follow-up for 3 open areas on her left lower leg anterior perera History of Wound: 50-year-old female presents for follow-up on chronic ulceration to left anterior leg and left medial leg. Patient's right leg ulceration has healed at this time. Patient denies any fever chills nausea vomiting chest pain calf pain shortness of breath. Patient has been compliant with treatment but missed her previous appointment secondary to overlapping appointment with her primary care physician. Patient has been applying Kenalog cream to the periwound areas along with Latisha to the wound sites dry sterile dressing and double Tubigrip. Patient has no other complaints and notes that pain is well controlled. Objective Data Objective Data Vital Signs: Vital Signs Temp Pulse Resp BP 97.5 F L 82 20 H 154/94 H 02/08/22 09:07 02/08/22 09:07 02/08/22 09:07 02/08/22 09:07 Physical Exam Narrative Patient is alert oriented to person place and time. Patient is ambulatory ambulates without assistance. Vascular: Dorsalis pedis posterior tibial pulses diminished to bilateral lower extremity. Atrophic changes noted to skin such as thinning shiny and taut appearance. Diminished hair growth noted to bilateral lower extremity. Capillary fill time is less than 5 seconds to the digits bilaterally. Neurologic light touch protective sensation diminished to bilateral lower extremity Dermatologic: Thickness ulceration noted to the anterior leg and medial left ankle. Pre and post debridement measurements were documented in nursing notes. These wounds demonstrate mixed fibrogranular base 50-50. Periwound skin appears devoid of any signs of infection, there was no deep probing at this time. Musculoskeletal: No pain to calf squeeze bilateral lower extremity muscular strength full to bilateral lower extremity compartments. No gross deformity contributing to wound formation at this time Debridement Note Debridement Note Post-Debridement Measurements and Additional Note: Post-Debridement Measurements/Treatment WC - Nurse 1 - General Ulcer Assessment Start: 01/25/22 10:09 Freq: Status: Active Protocol: IZABELEXT Activity Type Activity Date Activity User E-Sign Co-Sign Detail Recorded Client Recorded Date Recorded By Document 01/25/22 10:10 AMILCAR [id number] 01/25/22 10:25 KR Document 01/27/22 12:08 CARLOS [id number] 01/27/22 12:10 CARLOS Document 02/08/22 09:07 DL [id number] 02/08/22 09:17 DL 01/25/22 01/27/22 02/08/22 10:10 12:08 09:07 - Today's Visit Information Type of service Initial Visit Follow-up Visit (Physician/[employer] ) Arrival Mode Ambulatory Ambulatory Transfer Assistance None Patient Identification Verified (Name & Yes Yes ) Patient Requires Transmission-Based No Precautions Safety Precautions Fall Prevention Finger Stick Blood Sugar(mg/dl) (if 114 indicated): Vital Signs Temperature (97.8 F-99.1 F) 96.5 F L 97.5 F L Temperature Source Temporal Temporal Pulse Rate (60-100) 68 82 Pulse Location Monitor Monitor Respiratory Rate (12-18) 20 H Respiratory rate source Observation Blood Pressure (90/60-120/80) 136/74 H 154/94 H Blood Pressure Mean (mm Hg) 94 114 Source Monitor Monitor Position Sitting Blood Pressure Location Left Arm History Since Last Visit- (Skip if this is Patient's initial visit) Have you changed medications since your No No last visit? Any new allergies or adverse reactions No No Had a fall/change in ADL's that may No No increase risk of falls Signs or symptoms of abuse and/or No No neglect since last visit Have you been in the hospital since your No No last visit? Has dressing in place as prescribed Yes Yes Has compression in place as prescribed N/A Yes Has offloadiing in place as prescribed N/A N/A Experienced any changes in pain level or No No management Left Footwear Regular Shoe Right Footwear Regular Shoe Pain Scale: 0-10 Numeric Is Patient Pain Free? Yes Yes Yes - Nurse 1 - General Ulcer Measurement Start: 01/25/22 10:09 Freq: Status: Active Protocol: Activity Type Activity Date Activity User E-Sign Co-Sign Detail Recorded Client Recorded Date Recorded By Document 01/25/22 10:10 AMILCAR [id number] 01/25/22 10:25 KR Document 01/27/22 12:08 CARLOS [id number] 01/27/22 12:10 CARLOS Document 02/08/22 09:07 DL [id number] 02/08/22 09:17 DL 01/25/22 01/27/22 02/08/22 10:10 12:08 09:07 Wound Center Nurse 1 6-right medial lower leg -Combined with other wound No -Current Size (cm) - Length 1.4 0.1 -Current Size (cm) - Width 1.4 0.1 -Current Size (cm) - Depth 0.1 0.1 -Total Square Cm 1.96 0.01 -Photo Taken Yes No -Epithelialization None Present -Tunneling No -Undermining/Tunneling No -Circular Undermining No -Classification - Thickness Full Thickness without Exposed Support Structure -Exudate Amt Medium None Present -Exudate Type Serosanguineous Serosanguineous -Wound Margin Flat & Intact Flat & Intact -Granulation Amt Medium (34-66%) Large (67-100%) -Granulation Quality Red [employer] -Slough/Fibrin Yes -Necrosis Amt Medium (34-66%) -Necrotic Tissue Type Adherent Slough -Structure Exposed N/A N/A -Texture (Verónica-wound Skin Appearance) Assessed, No Abnormality Localized Edema -Moisture (Verónica-wound Skin Appearance) Assessed,Dry/ No Abnormality Scaly -Color (Verónica-wound Skin Appearance) Assessed, No Abnormality, Hemosiderin Hemosiderin Staining Staining -Temperature (Verónica-wound Skin No Abnormality No Abnormality Appearance) (Pt Warm) (Pt Warm) -Tenderness on Palpation (Verónica-wound Yes No Skin Appearance) -Ulcer Cleansing Rinsed/ Not Cleansed Irrigated with Saline -Foul Odor after Cleansing No No -Anesthetic Used 5% Lidocaine Gel #5 Left Medial Ankle -Current Size (cm) - Length 1.1 0.4 -Current Size (cm) - Width 1.3 0.8 -Current Size (cm) - Depth 0.2 0.1 -Total Square Cm 1.43 0.32 -Photo Taken No -Exudate Amt Small Small -Exudate Type Serosanguineous Serosanguineous -Wound Margin Distinct, Thickened Outline Attached -Granulation Amt Small (1-33%) None Present (0 %) -Granulation Quality Red -Necrosis Amt Small (1-33%) Small (1-33%) -Necrotic Tissue Type Adherent Slough Eschar -Structure Exposed N/A -Texture (Verónica-wound Skin Appearance) Assessed, Scarring Scarring -Moisture (Verónica-wound Skin Appearance) Assessed,Dry/ No Abnormality Scaly -Color (Verónica-wound Skin Appearance) No Abnormality, Hemosiderin Assessed Staining -Temperature (Verónica-wound Skin No Abnormality No Abnormality Appearance) (Pt Warm) (Pt Warm) -Tenderness on Palpation (Verónica-wound No No Skin Appearance) -Ulcer Cleansing Soap and Water Soap and Water -Foul Odor after Cleansing No No -Anesthetic Used 4% Lidocaine 4% Lidocaine Solution Solution #4 Left Perera -Current Size (cm) - Length 5.8 5.2 -Current Size (cm) - Width 3.5 2.7 -Current Size (cm) - Depth 0.2 0.2 -Total Square Cm 20.30 14.04 -Photo Taken No -Exudate Amt Medium Medium -Exudate Type Serosanguineous Serosanguineous -Wound Margin Distinct, Distinct, Outline Outline Attached Attached -Granulation Amt Large (67-100%) Medium (34-66%) -Granulation Quality Red [employer],Red -Necrosis Amt Medium (34-66%) Medium (34-66%) -Necrotic Tissue Type Adherent Slough Adherent Slough -Structure Exposed N/A -Texture (Verónica-wound Skin Appearance) Assessed, Localized Edema Scarring ,Scarring -Moisture (Verónica-wound Skin Appearance) Assessed, No Abnormality Maceration -Color (Verónica-wound Skin Appearance) No Abnormality, Hemosiderin Assessed Staining -Temperature (Verónica-wound Skin No Abnormality No Abnormality Appearance) (Pt Warm) (Pt Warm) -Tenderness on Palpation (Verónica-wound No Skin Appearance) -Ulcer Cleansing Soap and Water -Foul Odor after Cleansing No No -Anesthetic Used 4% Lidocaine 4% Lidocaine Solution Solution Right Calf (cm) 23.4 41.2 Right Ankle (cm) 52.8 26.8 Left Calf (cm) 27 50.6 Left Ankle (cm) 53.3 24.4 WC - Nurse 2 - General Ulcer CM Notes Start: 01/25/22 10:09 Freq: Status: Active Protocol: Activity Type Activity Date Activity User E-Sign Co-Sign Detail Recorded Client Recorded Date Recorded By Document 01/25/22 10:32 CARLOS [id number] 01/25/22 10:41 CARLOS Edit Result 01/25/22 10:32 CARLOS (1) [id number] 01/26/22 07:22 PL Document 02/08/22 09:36 [id number] 02/08/22 09:42 JF (1) #5 Left Medial Ankle - Type of Offloading Total Contact Cast => (TCC) - Left ($) => 01/25/22 02/08/22 10:32 09:36 Wound Center Nurse 2 6-right medial lower leg -Correct Patient No -Correct Side, Site, Position No -Correct Procedure No -Procedure Performed No -Post Debridement (cm) - Length 0 -Post Debridement (cm) - Width 0 -Post Debridement (cm) - Depth 0 -Total Square (Post) (cm) 0 -Area of Debridement (cm) - Length 0 -Area of Debridement (cm) - Width 0 -Total Square (Area) (cm) 0 -Wound/Ulcer Outcome Healed- Epithelialized #5 Left Medial Ankle -Time 10:37 09:39 -Correct Patient Yes Yes -Correct Side, Site, Position Yes Yes -Correct Procedure Yes Yes -Procedure Performed Yes Yes -Type of Procedure Debridement Debridement -Clinical Debridement Subcutaneous Subcutaneous -Tissue Removed Subcutaneous Subcutaneous -Post Debridement (cm) - Length 1.1 0.6 -Post Debridement (cm) - Width 1.1 0.8 -Post Debridement (cm) - Depth 0.1 0.1 -Total Square (Post) (cm) 1.21 0.48 -Area of Debridement (cm) - Length 1.1 0.6 -Area of Debridement (cm) - Width 1.1 0.8 -Total Square (Area) (cm) 1.21 0.48 -Tunneling No No -Undermining/Tunneling No No -Circular Undermining No No -Wound/Ulcer Outcome Not Healed Not Healed -Ulcer Cleansing Rinsed/ Rinsed/ Irrigated with Irrigated with Saline Saline -Foul Odor after Cleansing No No -Bioengineered Tissue No No -Bleeding Controlled with Pressure Pressure -Treatment Response Procedure Procedure Tolerated Well Tolerated Well -Offloading No -Debridement - Subq, 1st 20sq cm No Yes #4 Left Perera -Time 10:38 09:40 -Correct Patient Yes Yes -Correct Side, Site, Position Yes Yes -Correct Procedure Yes Yes -Procedure Performed Yes Yes -Type of Procedure Debridement Debridement -Clinical Debridement Subcutaneous Subcutaneous -Tissue Removed Dermis Subcutaneous -Post Debridement (cm) - Length 5.5 4.8 -Post Debridement (cm) - Width 3.0 2.8 -Post Debridement (cm) - Depth 0.2 0.2 -Total Square (Post) (cm) 16.50 13.44 -Area of Debridement (cm) - Length 5.5 4.8 -Area of Debridement (cm) - Width 3.0 2.8 -Total Square (Area) (cm) 16.50 13.44 -Tunneling No No -Undermining/Tunneling No -Circular Undermining No No -Wound/Ulcer Outcome Not Healed Not Healed -Ulcer Cleansing Wound Cleanser Rinsed/ Irrigated with Saline -Foul Odor after Cleansing No No -Bioengineered Tissue No No -Bleeding Controlled with Pressure Pressure -Treatment Response Procedure Procedure Tolerated Well Tolerated Well -Offloading No No -Debridement - Subq, 1st 20sq cm Yes No Pain Scale: 0-10 Numeric Is Patient Pain Free? Yes Yes WC - Nurse 3 - General Ulcer D/C NN Start: 01/25/22 10:09 Freq: Status: Active Protocol: Activity Type Activity Date Activity User E-Sign Co-Sign Detail Recorded Client Recorded Date Recorded By Document 01/25/22 10:46 [id number] 01/25/22 10:47 KR Document 02/08/22 09:46 KR [id number] 02/08/22 09:47 KR 01/25/22 02/08/22 10:46 09:46 Wound Care Nurse 3 #5 Left Medial Ankle -Ulcer Cleansing Rinsed/ Rinsed/ Irrigated with Irrigated with Saline Saline -Primary Dressing Applied Promogran Promogran Latisha Matter Latisha Matter -Primary Dressing Covered/Secured with Dry Gauze,Dry Dry Gauze, Gauze & Roll Secured with Gauze,Secured Tape with Tape -Promogran Latisha Matter 1 1 #4 Left Perera -Ulcer Cleansing Rinsed/ Rinsed/ Irrigated with Irrigated with Saline Saline -Primary Dressing Applied Promogran Latisha Matter -Primary Dressing Covered/Secured with Dry Gauze,Dry Dry Gauze, Gauze & Roll Secured with Gauze,Secured Tape with Tape -Promogran Latisha Matter 1 Right -Tubular Bandage Double Layer -Size of Tubigrip Used Size F -Size F ($) 2 Left -Compression Wrap Silvestre Wrap -Tubular Bandage Double Layer -Size of Tubigrip Used Size F -Size F ($) 2 Pain Scale: 0-10 Numeric Is Patient Pain Free? Yes Yes WC - Visit Discharge Discharge Condition Stable Stable Ambulatory Status Ambulatory Ambulatory Transportation Private Auto Private Auto Accompanied by self Medication Reconcilliation completed & No provided to patient/care provider Clinical Summary of Care Provided No Assessment/Plan Assessment/Plan (1) Non-pressure chronic ulcer of left calf with fat layer exposed: CODE(S): L97.222 - Non-pressure chronic ulcer of left calf with fat layer exposed PLAN: Patient examined and evaluated, all findings discussed with patient in detail. Patient will continue Glucerna supplementation, she has not received this yet but is working with [employer] to get it. Wounds were excisionally debrided down to including level of subcutaneous tissue, this is documented in the nursing notes predebridement measurements postoperative measurements anesthesia used an instrument used. This was performed with a 5 mm dermal curette. Topical anesthesia used. Hemostasis obtained with light compression. Wounds today were dressed with Latisha dry sterile dressing and Tubigrip double layer for compression. I recommend epifix grafting as well as conversion from Tubigrip stocking to Silvestre wrap for compression. Patient is scheduled to get noninvasive vascular studies as well as duplex ultrasound this week. Patient is receiving dressing changes per home health care. They are coming twice a week. Patient will follow up in 1 week. We will discuss her vascular studies as well as potentially apply epifix. (2) Other specified peripheral vascular diseases: CODE(S): I73.89 - Other specified peripheral vascular diseases
--- NOTE | 2022-02-10 09:02 | VDLE_ITS ---
Reason For Study: Edema RIGHT LEFT CFV is compressible, spontaneous, phasic, CFV is compressible, spontaneous, phasic, competent and demonstrates normal competent, and demonstrates normal augmentation. augmentation. FV is compressible, spontaneous, phasic, FV is compressible, spontaneous, phasic, competent and demonstrates normal competent and demonstrates normal augmentation. augmentation. POP V is compressible, spontaneous, phasic, POP V is compressible, spontaneous, phasic, competent and demonstrates normal competent and demonstrates normal augmentation. augmentation. T/P Trunk is compressible. T/P Trunk is compressible. PTV is compressible. PTV is compressible. RT PerV is compressible. LT PerV is compressible. SFJ is competent and measures 0.77 x 0.81 cm. SFJ is competent and measures 0.65 x 0.72 cm. GSV proximal thigh measures 0.45 x 0.44 cm. GSV proximal thigh measures 0.48 x 0.52 cm. GSV at knee measures 0.33 x 0.32 cm. GSV at knee measures 0.31 x 0.30 cm. GSV is competent throughout. GSV is competent throughout. SSV at junction is competent and measures SSV at junction is INCOMPETENT for greater 0.21 x 0.21 cm. than 0.5 seconds and measures 0.22 x 0.23 cm. Procedure This is a venous duplex using B-mode, color flow and spectral Doppler. Exam performed in department. Patient was scanned in supine position during reflux assessment. A preliminary report was called and/or faxed to . VL/Venous Duplex US - [place] Extrem Interpretation Summary Deep veins of the lower extremities are bilaterally patent and compressible seg mentally. There is no evidence of deep vein thrombosis on either side. Valvular competence appears in tact within the proximal deep venous systems bilaterally. The great saphenous veins appear bila terally patent and compressible segmentally. Sapheno-femoral junctions are bilaterally competent . Valvular competence appears to be intact segmentally within the great saphenous veins bilaterally. The right small saphenous vein is patent and competent. The left small saphenous vein is patent and incompetent. Ordering Physician: Rob Chang Referring Physician: Cristal Wolf M.D. Performed By: Estella Devlin RVT
--- NOTE | 2022-02-10 09:03 | ART_ITS ---
Reason For Study: Ulcer Procedure A bilateral lower extremity continuous wave Doppler with analog waveform analysis,segmental pressures,and ankle brachial indexes without exercise. Left Segmental Pressures Left brachial= 176mmHg. Left posterior tibial artery = 188mmHg. Left dorsalis pedis artery = 188mmHg. Left digit = 175 mmHg. The left dorsalis pedis waveforms are triphasic. The left posterior tibial artery waveforms are triphasic. Right Segmental Pressures Right brachial= 174mmHg. Right posterior tibial artery = 184mmHg. Right dorsalis pedis artery = 186mmHg. Right digit = 181 mmHg. The right dorsalis pedis waveforms are triphasic. The right posterior tibial artery waveforms are triphasic. Indices The right ankle brachial index by the dorsalis pedis is 1.06. The right ankle brachial index by the posterior tibial artery is 1.05. The right digital-brachial index is 1.03. The left ankle brachial index by the dorsalis pedis is 1.07. The left ankle brachial index by the posterior tibial artery is 1.07. The left digital-brachial index is 0.99. VL/Lower Ext Art Exam w/o Exercis Interpretation Summary Triphasic Doppler waveforms are noted at ankle level bilaterally. Pulse-volume recordings appear satisfactory at calf, ankle, and digital level bilaterally. Resting ankle-brach ial indices are normal bilaterally. Digital-brachial indices are normal bilaterally. There is no evidence of significant arterial occlusive disease in the lower ext remities bilaterally. Ordering Physician: Rob Chang Referring Physician: Cristal Wolf M.D. Performed By: Estella Devlin RVT
[2022-02-15 09:30] VITALS: BP 130/76; PULSE 97; RESP 16; TEMP 35.8
--- NOTE | 2022-02-15 09:56 | PCM.WC.PN ---
History of Present Illness Date of Service: 02/15/22 Chief Complaint: Follow-up for 3 open areas on her left lower leg anterior perera History of Wound: 50-year-old female presents for follow-up on chronic ulceration to left anterior leg and left medial leg. Patient's right leg ulceration has healed at this time. Patient denies any fever chills nausea vomiting chest pain calf pain shortness of breath. Patient has been compliant with treatment but missed her previous appointment secondary to overlapping appointment with her primary care physician. Patient has been applying Kenalog cream to the periwound areas along with Latisha to the wound sites dry sterile dressing and Silvestre for compression which is being performed twice weekly by home health care. Patient has no other complaints and notes that pain is well controlled. Objective Data Objective Data Vital Signs: Vital Signs Temp Pulse Resp BP 96.4 F L 97 16 130/76 H 02/15/22 09:30 02/15/22 09:30 02/15/22 09:30 02/15/22 09:30 Oxygen Delivery Method Room Air Physical Exam Narrative Patient is alert oriented to person place and time. Patient is ambulatory ambulates without assistance. Vascular: Dorsalis pedis posterior tibial pulses diminished to bilateral lower extremity. Atrophic changes noted to skin such as thinning shiny and taut appearance. Diminished hair growth noted to bilateral lower extremity. Capillary fill time is less than 5 seconds to the digits bilaterally. Neurologic light touch protective sensation diminished to bilateral lower extremity Dermatologic: Thickness ulceration noted to the anterior leg and medial left ankle. Pre and post debridement measurements were documented in nursing notes. These wounds demonstrate mixed fibrogranular base 50-50. Periwound skin appears devoid of any signs of infection, there was no deep probing at this time. Musculoskeletal: No pain to calf squeeze bilateral lower extremity muscular strength full to bilateral lower extremity compartments. No gross deformity contributing to wound formation at this time Debridement Note Debridement Note Post-Debridement Measurements and Additional Note: Post-Debridement Measurements/Treatment NILO - Nurse 1 - General Ulcer Assessment Start: 01/25/22 10:09 Freq: Status: Active Protocol: PERRY Activity Type Activity Date Activity User E-Sign Co-Sign Detail Recorded Client Recorded Date Recorded By Document 01/25/22 10:10 AMILCAR [id number] 01/25/22 10:25 KR Document 01/27/22 12:08 CARLOS [id number] 01/27/22 12:10 JF Document 02/08/22 09:07 DL [id number] 02/08/22 09:17 DL Document 02/15/22 09:30 BMF [id number] 02/15/22 09:37 BMF 01/25/22 01/27/22 02/08/22 10:10 12:08 09:07 - Today's Visit Information Type of service Initial Visit 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-up Visit (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 ) Arrival Mode Ambulatory Ambulatory Transfer Assistance None Patient Identification Verified (Name & Yes Yes ) Patient Requires Transmission-Based No Precautions Safety Precautions Fall Prevention Finger Stick Blood Sugar(mg/dl) (if 114 indicated): Vital Signs Temperature (97.8 F-99.1 F) 96.5 F L 97.5 F L Temperature Source Temporal Temporal Pulse Rate (60-100) 68 82 Pulse Location Monitor Monitor Respiratory Rate (12-18) 20 H Respiratory rate source Observation Oxygen Delivery Method Blood Pressure (90/60-120/80) 136/74 H 154/94 H Blood Pressure Mean (mm Hg) 94 114 Source Monitor Monitor Position Sitting Blood Pressure Location Left Arm History Since Last Visit- (Skip if this is Patient's initial visit) Have you changed medications since your No No last visit? Any new allergies or adverse reactions No No Had a fall/change in ADL's that may No No increase risk of falls Signs or symptoms of abuse and/or No No neglect since last visit Have you been in the hospital since your No No last visit? Has dressing in place as prescribed Yes Yes Has compression in place as prescribed N/A Yes Has offloadiing in place as prescribed N/A N/A Experienced any changes in pain level or No No management Left Footwear Regular Shoe Right Footwear Regular Shoe Pain Scale: 0-10 Numeric Is Patient Pain Free? 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 ) Arrival Mode Ambulatory Transfer Assistance None Patient Identification Verified (Name & Yes ) Patient Requires Transmission-Based Precautions Safety Precautions Finger Stick Blood Sugar(mg/dl) (if indicated): Vital Signs Temperature (97.8 F-99.1 F) 96.4 F L Temperature Source Temporal Pulse Rate (60-100) 97 Pulse Location Monitor Respiratory Rate (12-18) 16 Respiratory rate source Observation Oxygen Delivery Method Room Air Blood Pressure (90/60-120/80) 130/76 H Blood Pressure Mean (mm Hg) 94 Source Monitor Position Sitting Blood Pressure Location History Since Last Visit- (Skip if this is Patient's initial visit) Have you changed medications since your No last visit? Any new allergies or adverse reactions No Had a fall/change in ADL's that may No increase risk of falls Signs or symptoms of abuse and/or No neglect since last visit Have you been in the hospital since your No last visit? Has dressing in place as prescribed Yes Has compression in place as prescribed Yes Has offloadiing in place as prescribed N/A Experienced any changes in pain level or No management Left Footwear Regular Shoe Right Footwear Regular Shoe Pain Scale: 0-10 Numeric Is Patient Pain Free? Yes WC - Nurse 1 - General Ulcer Measurement Start: 01/25/22 10:09 Freq: Status: Active Protocol: Activity Type Activity Date Activity User E-Sign Co-Sign Detail Recorded Client Recorded Date Recorded By Document 01/25/22 10:10 KR [id number] 01/25/22 10:25 KR Document 01/27/22 12:08 JF [id number] 01/27/22 12:10 JF Document 02/08/22 09:07 DL [id number] 02/08/22 09:17 DL Document 02/15/22 09:30 [facility] [id number] 02/15/22 09:37 BMF 01/25/22 01/27/22 02/08/22 10:10 12:08 09:07 Wound Center Nurse 1 6-right medial lower leg -Combined with other wound No -Current Size (cm) - Length 1.4 0.1 -Current Size (cm) - Width 1.4 0.1 -Current Size (cm) - Depth 0.1 0.1 -Total Square Cm 1.96 0.01 -Photo Taken Yes No -Epithelialization None Present -Tunneling No -Undermining/Tunneling No -Circular Undermining No -Classification - Thickness Full Thickness without Exposed Support Structure -Exudate Amt Medium None Present -Exudate Type Serosanguineous Serosanguineous -Wound Margin Flat & Intact Flat & Intact -Granulation Amt Medium (34-66%) Large (67-100%) -Granulation Quality [place] -Slough/Fibrin Yes -Necrosis Amt Medium (34-66%) -Necrotic Tissue Type Adherent Slough -Structure Exposed N/A N/A -Texture (Verónica-wound Skin Appearance) Assessed, No Abnormality Localized Edema -Moisture (Verónica-wound Skin Appearance) Assessed,Dry/ No Abnormality Scaly -Color (Verónica-wound Skin Appearance) Assessed, No Abnormality, Hemosiderin Hemosiderin Staining Staining -Temperature (Verónica-wound Skin No Abnormality No Abnormality Appearance) (Pt Warm) (Pt Warm) -Tenderness on Palpation (Verónica-wound Yes No Skin Appearance) -Ulcer Cleansing Rinsed/ Not Cleansed Irrigated with Saline -Foul Odor after Cleansing No No -Anesthetic Used 5% Lidocaine Gel #5 Left Medial Ankle -Combined with other wound -Current Size (cm) - Length 1.1 0.4 -Current Size (cm) - Width 1.3 0.8 -Current Size (cm) - Depth 0.2 0.1 -Total Square Cm 1.43 0.32 -Date of Last Picture (Recall this field) -Photo Taken No -Epithelialization -Tunneling -Undermining/Tunneling -Circular Undermining -Exudate Amt Small Small -Exudate Type Serosanguineous Serosanguineous -Wound Margin Distinct, Thickened Outline Attached -Granulation Amt Small (1-33%) None Present (0 %) -Granulation Quality Red -Slough/Fibrin -Necrosis Amt Small (1-33%) Small (1-33%) -Necrotic Tissue Type Adherent Slough Eschar -Structure Exposed N/A -Texture (Verónica-wound Skin Appearance) Assessed, Scarring Scarring -Moisture (Verónica-wound Skin Appearance) Assessed,Dry/ No Abnormality Scaly -Color (Verónica-wound Skin Appearance) No Abnormality, Hemosiderin Assessed Staining -Temperature (Verónica-wound Skin No Abnormality No Abnormality Appearance) (Pt Warm) (Pt Warm) -Tenderness on Palpation (Verónica-wound No No Skin Appearance) -Ulcer Cleansing Soap and Water Soap and Water -Foul Odor after Cleansing No No -Anesthetic Used 4% Lidocaine 4% Lidocaine Solution Solution #4 Left Perera -Combined with other wound -Current Size (cm) - Length 5.8 5.2 -Current Size (cm) - Width 3.5 2.7 -Current Size (cm) - Depth 0.2 0.2 -Total Square Cm 20.30 14.04 -Date of Last Picture (Recall this field) -Photo Taken No -Epithelialization -Tunneling -Undermining/Tunneling -Circular Undermining -Exudate Amt Medium Medium -Exudate Type Serosanguineous Serosanguineous -Wound Margin Distinct, Distinct, Outline Outline Attached Attached -Granulation Amt Large (67-100%) Medium (34-66%) -Granulation Quality Red [place],Red -Slough/Fibrin -Necrosis Amt Medium (34-66%) Medium (34-66%) -Necrotic Tissue Type Adherent Slough Adherent Slough -Structure Exposed N/A -Texture (Verónica-wound Skin Appearance) Assessed, Localized Edema Scarring ,Scarring -Moisture (Verónica-wound Skin Appearance) Assessed, No Abnormality Maceration -Color (Verónica-wound Skin Appearance) No Abnormality, Hemosiderin Assessed Staining -Temperature (Verónica-wound Skin No Abnormality No Abnormality Appearance) (Pt Warm) (Pt Warm) -Tenderness on Palpation (Verónica-wound No Skin Appearance) -Ulcer Cleansing Soap and Water -Foul Odor after Cleansing No No -Anesthetic Used 4% Lidocaine 4% Lidocaine Solution Solution Lower Limb Edema Present Right Calf (cm) 23.4 41.2 Right Ankle (cm) 52.8 26.8 Left Calf (cm) 27 50.6 Left Ankle (cm) 53.3 24.4 02/15/22 09:30 Wound Center Nurse 1 6-right medial lower leg -Combined with other wound -Current Size (cm) - Length -Current Size (cm) - Width -Current Size (cm) - Depth -Total Square Cm -Photo Taken -Epithelialization -Tunneling -Undermining/Tunneling -Circular Undermining -Classification - Thickness -Exudate Amt -Exudate Type -Wound Margin -Granulation Amt -Granulation Quality -Slough/Fibrin -Necrosis Amt -Necrotic Tissue Type -Structure Exposed -Texture (Verónica-wound Skin Appearance) -Moisture (Verónica-wound Skin Appearance) -Color (Verónica-wound Skin Appearance) -Temperature (Verónica-wound Skin Appearance) -Tenderness on Palpation (Verónica-wound Skin Appearance) -Ulcer Cleansing -Foul Odor after Cleansing -Anesthetic Used #5 Left Medial Ankle -Combined with other wound No -Current Size (cm) - Length 0.5 -Current Size (cm) - Width 0.7 -Current Size (cm) - Depth 0.1 -Total Square Cm 0.35 -Date of Last Picture (Recall this 02/15/22 field) -Photo Taken Yes -Epithelialization None Present -Tunneling No -Undermining/Tunneling No -Circular Undermining No -Exudate Amt None Present -Exudate Type -Wound Margin Distinct, Outline Attached -Granulation Amt Small (1-33%) -Granulation Quality Red -Slough/Fibrin Yes -Necrosis Amt Large (67-100%) -Necrotic Tissue Type Eschar -Structure Exposed -Texture (Verónica-wound Skin Appearance) Assessed, Scarring -Moisture (Verónica-wound Skin Appearance) Assessed,Dry/ Scaly -Color (Verónica-wound Skin Appearance) Assessed -Temperature (Verónica-wound Skin No Abnormality Appearance) (Pt Warm) -Tenderness on Palpation (Verónica-wound No Skin Appearance) -Ulcer Cleansing Rinsed/ Irrigated with Saline -Foul Odor after Cleansing No -Anesthetic Used 4% Lidocaine Solution #4 Left Perera -Combined with other wound No -Current Size (cm) - Length 4.3 -Current Size (cm) - Width 3.3 -Current Size (cm) - Depth 0.2 -Total Square Cm 14.19 -Date of Last Picture (Recall this 02/15/22 field) -Photo Taken Yes -Epithelialization None Present -Tunneling No -Undermining/Tunneling No -Circular Undermining No -Exudate Amt Large -Exudate Type Yellow/Green -Wound Margin Distinct, Outline Attached -Granulation Amt Large (67-100%) -Granulation Quality Red -Slough/Fibrin Yes -Necrosis Amt Small (1-33%) -Necrotic Tissue Type Adherent Slough -Structure Exposed -Texture (Verónica-wound Skin Appearance) Assessed, Scarring -Moisture (Verónica-wound Skin Appearance) Assessed,Dry/ Scaly -Color (Verónica-wound Skin Appearance) Assessed -Temperature (Verónica-wound Skin No Abnormality Appearance) (Pt Warm) -Tenderness on Palpation (Verónica-wound No Skin Appearance) -Ulcer Cleansing Rinsed/ Irrigated with Saline -Foul Odor after Cleansing No -Anesthetic Used 4% Lidocaine Solution Lower Limb Edema Present Yes Right Calf (cm) Right Ankle (cm) Left Calf (cm) 48.5 Left Ankle (cm) 23.2 WC - Nurse 2 - General Ulcer CM Notes Start: 01/25/22 10:09 Freq: Status: Active Protocol: Activity Type Activity Date Activity User E-Sign Co-Sign Detail Recorded Client Recorded Date Recorded By Document 01/25/22 10:32 CARLOS [id number] 01/25/22 10:41 JF Edit Result 01/25/22 10:32 JF (1) [id number] 01/26/22 07:22 PL Document 02/08/22 09:36 [id number] 02/08/22 09:42 JF Document 02/15/22 09:49 [id number] 02/15/22 09:53 JF (1) #5 Left Medial Ankle - Type of Offloading Total Contact Cast => (TCC) - Left ($) => 01/25/22 02/08/22 02/15/22 10:32 09:36 09:49 Wound Center Nurse 2 6-right medial lower leg -Correct Patient No -Correct Side, Site, Position No -Correct Procedure No -Procedure Performed No -Post Debridement (cm) - Length 0 -Post Debridement (cm) - Width 0 -Post Debridement (cm) - Depth 0 -Total Square (Post) (cm) 0 -Area of Debridement (cm) - Length 0 -Area of Debridement (cm) - Width 0 -Total Square (Area) (cm) 0 -Wound/Ulcer Outcome Healed- Epithelialized #5 Left Medial Ankle -Time 10:37 09:39 09:49 -Correct Patient Yes Yes Yes -Correct Side, Site, Position Yes Yes Yes -Correct Procedure Yes Yes Yes -Procedure Performed Yes Yes Yes -Type of Procedure Debridement Debridement Debridement -Clinical Debridement Subcutaneous Subcutaneous Subcutaneous -Tissue Removed Subcutaneous Subcutaneous Subcutaneous -Post Debridement (cm) - Length 1.1 0.6 0.6 -Post Debridement (cm) - Width 1.1 0.8 0.7 -Post Debridement (cm) - Depth 0.1 0.1 0.1 -Total Square (Post) (cm) 1.21 0.48 0.42 -Area of Debridement (cm) - Length 1.1 0.6 0.6 -Area of Debridement (cm) - Width 1.1 0.8 0.7 -Total Square (Area) (cm) 1.21 0.48 0.42 -Tunneling No No No -Undermining/Tunneling No No No -Circular Undermining No No No -Wound/Ulcer Outcome Not Healed Not Healed Not Healed -Ulcer Cleansing Rinsed/ Rinsed/ Rinsed/ Irrigated with Irrigated with Irrigated with Saline Saline Saline -Foul Odor after Cleansing No No No -Bioengineered Tissue No No No -Bleeding Controlled with Pressure Pressure Pressure -Treatment Response Procedure Procedure Procedure Tolerated Well Tolerated Well Tolerated Well -Offloading No No -Debridement - Subq, 1st 20sq cm No Yes Yes #4 Left Perera -Time 10:38 09:40 09:50 -Correct Patient Yes Yes Yes -Correct Side, Site, Position Yes Yes Yes -Correct Procedure Yes Yes Yes -Procedure Performed Yes Yes Yes -Type of Procedure Debridement Debridement Debridement -Clinical Debridement Subcutaneous Subcutaneous Subcutaneous -Tissue Removed Dermis Subcutaneous Subcutaneous -Post Debridement (cm) - Length 5.5 4.8 4.4 -Post Debridement (cm) - Width 3.0 2.8 3.3 -Post Debridement (cm) - Depth 0.2 0.2 0.2 -Total Square (Post) (cm) 16.50 13.44 14.52 -Area of Debridement (cm) - Length 5.5 4.8 4.4 -Area of Debridement (cm) - Width 3.0 2.8 3.3 -Total Square (Area) (cm) 16.50 13.44 14.52 -Tunneling No No No -Undermining/Tunneling No -Circular Undermining No No No -Wound/Ulcer Outcome Not Healed Not Healed -Ulcer Cleansing Wound Cleanser Rinsed/ Rinsed/ Irrigated with Irrigated with Saline Saline -Foul Odor after Cleansing No No No -Bioengineered Tissue No No Yes -Type of Bioengineered Tissue Epifix Mesh -Expiration Date 11/20/26 -Product Lot Number [id number] -Percent Used 100 -Lot number of Saline Used [id number] -Bleeding Controlled with Pressure Pressure Pressure -Treatment Response Procedure Procedure Procedure Tolerated Well Tolerated Well Tolerated Well -Offloading No No No -Debridement - Subq, 1st 20sq cm Yes No No -Apply Skin Sub - 1st 25 sq cm - Legs 1 -Epifix Mesh (per sq cm) 11 Pain Scale: 0-10 Numeric Is Patient Pain Free? Yes Yes Yes - Nurse 3 - General Ulcer D/C NN Start: 01/25/22 10:09 Freq: Status: Active Protocol: Activity Type Activity Date Activity User E-Sign Co-Sign Detail Recorded Client Recorded Date Recorded By Document 01/25/22 10:46 AMILCAR [id number] 01/25/22 10:47 KR Document 02/08/22 09:46 KR [id number] 02/08/22 09:47 KR 01/25/22 02/08/22 10:46 09:46 Wound Care Nurse 3 #5 Left Medial Ankle -Ulcer Cleansing Rinsed/ Rinsed/ Irrigated with Irrigated with Saline Saline -Primary Dressing Applied Promogran Promogran Latisha Matter Latisha Matter -Primary Dressing Covered/Secured with Dry Gauze,Dry Dry Gauze, Gauze & Roll Secured with Gauze,Secured Tape with Tape -Promogran Latisha Matter 1 1 #4 Left Perera -Ulcer Cleansing Rinsed/ Rinsed/ Irrigated with Irrigated with Saline Saline -Primary Dressing Applied Promogran Latisha Matter -Primary Dressing Covered/Secured with Dry Gauze,Dry Dry Gauze, Gauze & Roll Secured with Gauze,Secured Tape with Tape -Promogran Latisha Matter 1 Right -Tubular Bandage Double Layer -Size of Tubigrip Used Size F -Size F ($) 2 Left -Compression Wrap Silvestre Wrap -Tubular Bandage Double Layer -Size of Tubigrip Used Size F -Size F ($) 2 Pain Scale: 0-10 Numeric Is Patient Pain Free? Yes Yes WC - Visit Discharge Discharge Condition Stable Stable Ambulatory Status Ambulatory Ambulatory Transportation Private Auto Private Auto Accompanied by self Medication Reconcilliation completed & No provided to patient/care provider Clinical Summary of Care Provided No Assessment/Plan Assessment/Plan (1) Non-pressure chronic ulcer of left calf with fat layer exposed: CODE(S): L97.222 - Non-pressure chronic ulcer of left calf with fat layer exposed PLAN: Patient examined and evaluated, all findings discussed with patient in detail. Patient will continue Glucerna supplementation, she has not received this yet but is working with [email or web address] to get it. Wounds x2 were excisionally debrided down to including level of subcutaneous tissue, this is documented in the nursing notes predebridement measurements postoperative measurements anesthesia used an instrument used. This was performed with a 5 mm dermal curette. Topical anesthesia used. Hemostasis obtained with light compression. A 4.0 x 4.5 cm epi fix graft was applied to the superior left lower extremity ulceration no waste. 11 billing units. Dressed with Adaptic and Steri-Strips. Overlying compression dressing applied. Patient will continue twice weekly home health care dressing changes. She will ambulate as tolerated without assistance. And follow-up in 1 week. (2) Other specified peripheral vascular diseases: CODE(S): I73.89 - Other specified peripheral vascular diseases
== END 2022-02-17 23:59 | disposition home or self-care (01) ==
LOC: WC 09:30
PROVIDERS: PCP Internal Medicine; Referring Provider Podiatrist; Visit Provider Podiatrist
DX: L97.222 Non-pressure chronic ulcer of left calf with fat layer exposed (principal); L97.329 Non-pressure chronic ulcer of left ankle with unspecified severity; J44.9 Chronic obstructive pulmonary disease, unspecified; F31.9 Bipolar disorder, unspecified; E11.40 Type 2 diabetes mellitus with diabetic neuropathy, unspecified; I73.89 Other specified peripheral vascular diseases; Z79.84 Long term (current) use of oral hypoglycemic drugs; I10 Essential (primary) hypertension; G43.909 Migraine, unspecified, not intractable, without status migrainosus; L90.5 Scar conditions and fibrosis of skin
CPT/HCPCS: 29445; 11042; 15271; 93923; 93970; 99213; Q4186; G0463

== ENCOUNTER 2022-03-15 09:00 | Outpatient (RCR) | payer MEDICAID, SELFPAY ==
[2022-02-18 00:47] VITALS: BP 130/76; PULSE 97; RESP 16; TEMP 35.8
[2022-02-22 09:35] VITALS: BP 110/77; PULSE 98; RESP 18; TEMP 36.2
--- NOTE | 2022-02-22 10:08 | PN.PCM_ITS ---
History of Present Illness Date of Service: 02/22/22 Chief Complaint: Follow-up for 3 open areas on her left lower leg anterior perera History of Wound: 50-year-old female presents for follow-up on chronic ulceration to left anterior leg and left medial leg. Patient's right leg ulceration has healed at this time. Patient denies any fever chills nausea vomiting chest pain calf pain shortness of breath. Patient denies any changes since her previous visit has been compliant with treatment. Objective Data Objective Data Vital Signs: Vital Signs Temp Pulse Resp BP 97.2 F L 98 18 110/77 02/22/22 09:35 02/22/22 09:35 02/22/22 09:35 02/22/22 09:35 Oxygen Delivery Method Room Air Physical Exam Narrative Patient is alert oriented to person place and time. Patient is ambulatory ambulates without assistance. Vascular: Dorsalis pedis posterior tibial pulses diminished to bilateral lower extremity. Atrophic changes noted to skin such as thinning shiny and taut appearance. Diminished hair growth noted to bilateral lower extremity. Capillary fill time is less than 5 seconds to the digits bilaterally. Neurologic light touch protective sensation diminished to bilateral lower extremity Dermatologic: Thickness ulceration noted to the anterior leg, left medial leg wound healed. Pre and post debridement measurements were documented in nursing notes. These wounds demonstrate mixed fibrogranular base 50-50. Periwound skin appears devoid of any signs of infection, there was no deep probing at this time. Musculoskeletal: No pain to calf squeeze bilateral lower extremity muscular strength full to bilateral lower extremity compartments. 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 ) Arrival Mode Ambulatory Transfer Assistance None Accompanied by dad Patient Identification Verified (Name & Yes ) Patient Requires Transmission-Based No Precautions Safety Precautions NA Finger Stick Blood Sugar(mg/dl) (if 159 indicated): Blood Sugar Stated by Patient Vital Signs Temperature (97.8 F-99.1 F) 97.2 F L Temperature Source Temporal Pulse Rate (60-100) 98 Pulse Location Monitor Respiratory Rate (12-18) 18 Respiratory rate source Observation Oxygen Delivery Method Room Air Blood Pressure (90/60-120/80) 110/77 Blood Pressure Mean (mm Hg) 88 Source Monitor Position Sitting Blood Pressure Location Left Forearm History Since Last Visit- (Skip if this is Patient's initial visit) Have you changed medications since your No last visit? Any new allergies or adverse reactions No Had a fall/change in ADL's that may No increase risk of falls Signs or symptoms of abuse and/or No neglect since last visit Have you been in the hospital since your No last visit? Has dressing in place as prescribed Yes Has compression in place as prescribed Yes Has offloadiing in place as prescribed N/A Experienced any changes in pain level or No management Left Footwear Regular Shoe Right Footwear Regular Shoe Pain Scale: 0-10 Numeric Is Patient Pain Free? Yes WC - Nurse 1 - General Ulcer Measurement Start: 02/22/22 09:35 Freq: Status: Active Protocol: Activity Type Activity Date Activity User E-Sign Co-Sign Detail Recorded Client Recorded Date Recorded By Document 02/22/22 09:35 MW [id number] 02/22/22 09:48 MW 02/22/22 09:35 Wound Center Nurse 1 #5 Left Medial Ankle -Combined with other wound No -Current Size (cm) - Length 0.3 -Current Size (cm) - Width 0.4 -Current Size (cm) - Depth 0.1 -Total Square Cm 0.12 -Photo Taken No -Epithelialization None Present -Tunneling No -Undermining/Tunneling No -Circular Undermining No -Exudate Amt Small -Exudate Type Serosanguineous -Wound Margin Flat & Intact -Granulation Amt None Present (0 %) -Granulation Quality N/A -Slough/Fibrin Yes -Necrosis Amt Large (67-100%) -Necrotic Tissue Type Adherent Slough -Structure Exposed N/A -Texture (Verónica-wound Skin Appearance) Assessed, Localized Edema ,Scarring -Moisture (Verónica-wound Skin Appearance) Assessed,Dry/ Scaly -Color (Verónica-wound Skin Appearance) Assessed, Hemosiderin Staining -Temperature (Verónica-wound Skin No Abnormality Appearance) (Pt Warm) -Ulcer Cleansing Soap and Water -Foul Odor after Cleansing No -Anesthetic Used 5% Lidocaine Gel #4 Left Perera -Combined with other wound No -Current Size (cm) - Length 4.7 -Current Size (cm) - Width 2.5 -Current Size (cm) - Depth 0.2 -Total Square Cm 11.75 -Photo Taken No -Epithelialization None Present -Tunneling No -Undermining/Tunneling No -Circular Undermining No -Exudate Amt Medium -Exudate Type Serosanguineous -Wound Margin Distinct, Outline Attached -Granulation Amt Medium (34-66%) -Granulation Quality [place] -Slough/Fibrin Yes -Necrosis Amt Small (1-33%) -Necrotic Tissue Type Adherent Slough -Structure Exposed N/A -Texture (Verónica-wound Skin Appearance) Assessed, Localized Edema ,Scarring -Moisture (Verónica-wound Skin Appearance) Assessed,Dry/ Scaly -Color (Verónica-wound Skin Appearance) Assessed, Hemosiderin Staining -Temperature (Verónica-wound Skin No Abnormality Appearance) (Pt Warm) -Ulcer Cleansing Soap and Water -Foul Odor after Cleansing No -Anesthetic Used 5% Lidocaine Gel Lower Limb Edema Present Yes Left Calf (cm) 50.5 Left Ankle (cm) 23.5 Assessment/Plan Assessment/Plan (1) Non-pressure chronic ulcer of left calf with fat layer exposed: CODE(S): L97.222 - Non-pressure chronic ulcer of left calf with fat layer exposed PLAN: Patient examined and evaluated, all findings discussed with patient in detail. Patient will continue Glucerna supplementation, she has not received this yet but is working with [facility] to get it. Wounds x1 was excisionally debrided down to including level of subcutaneous tissue, this is documented in the nursing notes predebridement measurements postoperative measurements anesthesia used an instrument used. This was performed with a 5 mm dermal curette. Topical anesthesia used. Hemostasis obtained with light compression. A 4.0 x 4.5 cm epi fix graft was applied to the superior left lower extremity ulceration no waste. 11 billing units. Dressed with Adaptic and Steri-Strips. Overlying compression dressing applied. Patient will continue twice weekly home health care dressing changes. She will ambulate as tolerated without assistance. And follow-up in 1 week. Wounds are improving well at this time. (2) Diabetes mellitus type 2, uncontrolled, with complications: CODE(S): E11.8 - Type 2 diabetes mellitus with unspecified complications; E11.65 - Type 2 diabetes mellitus with hyperglycemia
--- NOTE | 2022-03-03 10:18 | PN.PCM_ITS ---
History of Present Illness Date of Service: 03/03/22 Chief Complaint: Follow-up for 3 open areas on her left lower leg anterior perera History of Wound: 50-year-old female presents for follow-up on chronic ulceration to left anterior leg. Patient's right leg ulceration has healed at this time. Patient denies any fever chills nausea vomiting chest pain calf pain shortness of breath. Patient denies any changes since her previous visit has been compliant with treatment. Objective Data Objective Data Vital Signs: Vital Signs Temp Pulse Resp BP 97.2 F L 98 18 110/77 02/22/22 09:35 02/22/22 09:35 02/22/22 09:35 02/22/22 09:35 Oxygen Delivery Method Room Air Physical Exam Narrative Patient is alert oriented to person place and time. Patient is ambulatory a mbulates without assistance. Vascular: Dorsalis pedis posterior tibial pulses diminished to bilateral lower extremity. Atrophic changes noted to skin such as thinning shiny and taut appearance. Diminished hair growth noted to bilateral lower extremity. Capillary fill time is less than 5 seconds to the digits bilaterally. Neurologic light touch protective sensation diminished to bilateral lower extremity Dermatologic: Thickness ulceration noted to the anterior leg, left medial leg wound healed. Pre and post debridement measurements were documented in nursing notes. These wounds demonstrate mixed fibrogranular base 50-50. Periwound skin appears devoid of any signs of infection, there was no deep probing at this time. Musculoskeletal: No pain to calf squeeze bilateral lower extremity muscular strength full to bilateral lower extremity compartments. 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 ) Arrival Mode Ambulatory Transfer Assistance None Accompanied by dad Patient Identification Verified (Name & Yes ) Patient Requires Transmission-Based No Precautions Safety Precautions NA Finger Stick Blood Sugar(mg/dl) (if 159 indicated): Blood Sugar Stated by Patient Vital Signs Temperature (97.8 F-99.1 F) 97.2 F L Temperature Source Temporal Pulse Rate (60-100) 98 Pulse Location Monitor Respiratory Rate (12-18) 18 Respiratory rate source Observation Oxygen Delivery Method Room Air Blood Pressure (90/60-120/80) 110/77 Blood Pressure Mean (mm Hg) 88 Source Monitor Position Sitting Blood Pressure Location Left Forearm History Since Last Visit- (Skip if this is Patient's initial visit) Have you changed medications since your No last visit? Any new allergies or adverse reactions No Had a fall/change in ADL's that may No increase risk of falls Signs or symptoms of abuse and/or No neglect since last visit Have you been in the hospital since your No last visit? Has dressing in place as prescribed Yes Has compression in place as prescribed Yes Has offloadiing in place as prescribed N/A Experienced any changes in pain level or No management Left Footwear Regular Shoe Right Footwear Regular Shoe Pain Scale: 0-10 Numeric Is Patient Pain Free? Yes WC - Nurse 1 - General Ulcer Measurement Start: 02/22/22 09:35 Freq: Status: Active Protocol: Activity Type Activity Date Activity User E-Sign Co-Sign Detail Recorded Client Recorded Date Recorded By Document 02/22/22 09:35 MW [id number] 02/22/22 09:48 MW 02/22/22 09:35 Wound Center Nurse 1 #5 Left Medial Ankle -Combined with other wound No -Current Size (cm) - Length 0.3 -Current Size (cm) - Width 0.4 -Current Size (cm) - Depth 0.1 -Total Square Cm 0.12 -Photo Taken No -Epithelialization None Present -Tunneling No -Undermining/Tunneling No -Circular Undermining No -Exudate Amt Small -Exudate Type Serosanguineous -Wound Margin Flat & Intact -Granulation Amt None Present (0 %) -Granulation Quality N/A -Slough/Fibrin Yes -Necrosis Amt Large (67-100%) -Necrotic Tissue Type Adherent Slough -Structure Exposed N/A -Texture (Verónica-wound Skin Appearance) Assessed, Localized Edema ,Scarring -Moisture (Verónica-wound Skin Appearance) Assessed,Dry/ Scaly -Color (Verónica-wound Skin Appearance) Assessed, Hemosiderin Staining -Temperature (Verónica-wound Skin No Abnormality Appearance) (Pt Warm) -Ulcer Cleansing Soap and Water -Foul Odor after Cleansing No -Anesthetic Used 5% Lidocaine Gel #4 Left Perera -Combined with other wound No -Current Size (cm) - Length 4.7 -Current Size (cm) - Width 2.5 -Current Size (cm) - Depth 0.2 -Total Square Cm 11.75 -Photo Taken No -Epithelialization None Present -Tunneling No -Undermining/Tunneling No -Circular Undermining No -Exudate Amt Medium -Exudate Type Serosanguineous -Wound Margin Distinct, Outline Attached -Granulation Amt Medium (34-66%) -Granulation Quality [place] -Slough/Fibrin Yes -Necrosis Amt Small (1-33%) -Necrotic Tissue Type Adherent Slough -Structure Exposed N/A -Texture (Verónica-wound Skin Appearance) Assessed, Localized Edema ,Scarring -Moisture (Verónica-wound Skin Appearance) Assessed,Dry/ Scaly -Color (Verónica-wound Skin Appearance) Assessed, Hemosiderin Staining -Temperature (Verónica-wound Skin No Abnormality Appearance) (Pt Warm) -Ulcer Cleansing Soap and Water -Foul Odor after Cleansing No -Anesthetic Used 5% Lidocaine Gel Lower Limb Edema Present Yes Left Calf (cm) 50.5 Left Ankle (cm) 23.5 WC - Nurse 2 - General Ulcer CM Notes Start: 02/22/22 09:35 Freq: Status: Active Protocol: Activity Type Activity Date Activity User E-Sign Co-Sign Detail Recorded Client Recorded Date Recorded By Document 02/22/22 10:00 [id number] 02/22/22 10:08 Document 03/03/22 09:36 MW [id number] 03/03/22 09:42 MW 02/22/22 03/03/22 10:00 09:36 Wound Center Nurse 2 6-right medial lower leg -Correct Patient No -Correct Side, Site, Position No -Correct Procedure No -Procedure Performed No #5 Left Medial Ankle -Correct Patient No -Correct Side, Site, Position No -Correct Procedure No -Procedure Performed No -Post Debridement (cm) - Length 0 -Post Debridement (cm) - Width 0 -Post Debridement (cm) - Depth 0 -Total Square (Post) (cm) 0 -Area of Debridement (cm) - Length 0 -Area of Debridement (cm) - Width 0 -Total Square (Area) (cm) 0 -Wound/Ulcer Outcome Healed- Epithelialized #4 Left Perera -Time 10:01 09:41 -Correct Patient Yes Yes -Correct Side, Site, Position Yes Yes -Correct Procedure Yes Yes -Procedure Performed Yes Yes -Type of Procedure Debridement Debridement -Clinical Debridement Subcutaneous Subcutaneous -Tissue Removed Subcutaneous Subcutaneous -Post Debridement (cm) - Length 4.9 4.4 -Post Debridement (cm) - Width 2.4 2.0 -Post Debridement (cm) - Depth 0.2 0.2 -Total Square (Post) (cm) 11.76 8.80 -Area of Debridement (cm) - Length 4.9 4.4 -Area of Debridement (cm) - Width 2.4 2.0 -Total Square (Area) (cm) 11.76 8.80 -Tunneling No No -Undermining/Tunneling No No -Circular Undermining No No -Wound/Ulcer Outcome Not Healed Not Healed -Ulcer Cleansing Rinsed/ Rinsed/ Irrigated with Irrigated with Saline Saline -Foul Odor after Cleansing No No -Bioengineered Tissue Yes Yes -Type of Bioengineered Tissue Epifix Mesh Epifix Mesh -Expiration Date 05/20/27 11/20/26 -Product Lot Number [id number] -Percent Used 100 100 -Lot number of Saline Used [id number] -Bleeding Controlled with Pressure Pressure -Treatment Response Procedure Procedure Tolerated Well Tolerated Well -Offloading No No -Debridement - Subq, 1st 20sq cm No No -Apply Skin Sub - 1st 25 sq cm - Legs 1 1 -Epifix Mesh (per sq cm) 11 11 Pain Scale: 0-10 Numeric Is Patient Pain Free? Yes Yes WC - Nurse 3 - General Ulcer D/C NN Start: 02/22/22 09:35 Freq: Status: Active Protocol: Activity Type Activity Date Activity User E-Sign Co-Sign Detail Recorded Client Recorded Date Recorded By Document 02/22/22 10:17 [facility] [id number] 02/22/22 10:18 [facility] Document 03/03/22 09:51 KR [id number] 03/03/22 09:52 KR 02/22/22 03/03/22 10:17 09:51 Wound Care Nurse 3 #4 Left Perera -Other Dressing epimesh ABD pad -Primary Dressing Covered/Secured with Dry Gauze & Dry Gauze, Roll Gauze, Secured with Secured with Tape Tape,Other -Other Covering abd Left -Compression Wrap Silvestre Wrap Silvestre Wrap Treatment Response Procedure Tolerated Well Pain Scale: 0-10 Numeric Is Patient Pain Free? Yes Yes WC - Visit Discharge Discharge Condition Stable Stable Ambulatory Status Ambulatory Ambulatory Transportation Private Auto Private Auto Assessment/Plan Assessment/Plan (1) Non-pressure chronic ulcer of left calf with fat layer exposed: CODE(S): L97.222 - Non-pressure chronic ulcer of left calf with fat layer exposed PLAN: Patient examined and evaluated, all findings discussed with patient in detail. Patient will continue Glucerna supplementation, she has not received this yet but is working with [employer] to get it. Wounds x1 was excisionally debrided down to including level of subcutaneous tissue, this is documented in the nursing notes predebridement measurements postoperative measurements anesthesia used an instrument used. This was performed with a 5 mm dermal curette. Topical anesthesia used. Hemostasis obtained with light compression. A 4.0 x 4.5 cm epi fix graft was applied to the superior left lower extremity ulceration no waste. 11 billing units. Dressed with Adaptic and Steri-Strips. Overlying compression dressing applied. Patient will continue twice weekly home health care dressing changes. She will ambulate as tolerated without assistance. Patient will continue daily elevation compression and exercise to manage edema improve wound healing outcome. And follow-up in 1 week. Wound is improving well at this time. (2) Diabetes mellitus type 2, uncontrolled, with complications: CODE(S): E11.8 - Type 2 diabetes mellitus with unspecified complications; E11.65 - Type 2 diabetes mellitus with hyperglycemia
[2022-03-15 09:06] VITALS: BP 126/77; PULSE 81; RESP 18; TEMP 35.2
--- NOTE | 2022-03-15 09:33 | PN.PCM_ITS ---
History of Present Illness Date of Service: 03/15/22 Chief Complaint: Follow-up for 3 open areas on her left lower leg anterior perera History of Wound: 50-year-old female presents for follow-up on chronic ulceration to left anterior leg. Patient's right leg ulceration has healed at this time. Patient denies any fever chills nausea vomiting chest pain calf pain shortness of breath. Patient denies any changes since her previous visit has been compliant with treatment. Objective Data Objective Data Vital Signs: Vital Signs Temp Pulse Resp BP 95.3 F L 81 18 126/77 H 03/15/22 09:06 03/15/22 09:06 03/15/22 09:06 03/15/22 09:06 Oxygen Delivery Method Room Air Physical Exam Narrative Patient is alert oriented to person place and time. Patient is ambulatory ambulates without assistance. Vascular: Dorsalis pedis posterior tibial pulses diminished to bilateral lower extremity. Atrophic changes noted to skin such as thinning shiny and taut appearance. Diminished hair growth noted to bilateral lower extremity. Capillary fill time is less than 5 seconds to the digits bilaterally. Neurologic light touch protective sensation diminished to bilateral lower extremity Dermatologic: Thickness ulceration noted to the anterior leg, left medial leg wound healed. Pre and post debridement measurements were documented in nursing notes. These wounds demonstrate mixed fibrogranular base 50-50. Periwound skin appears devoid of any signs of infection, there was no deep probing at this time. New ulceration to medial left ankle along the course of great saphenous vein. This ulceration is small has no evidence of deep probing no signs of infection and demonstrates 100% granular base with minimal drainage. Musculoskeletal: No pain to calf squeeze bilateral lower extremity muscular strength full to bilateral lower extremity compartments. No gross deformity contributing to wound formation at this time Debridement Note Debridement Note Post-Debridement Measurements and Additional Note: Post-Debridement Measurements/Treatment NILO - Nurse 1 - General Ulcer Assessment Start: 02/22/22 09:35 Freq: Status: Active Protocol: PERRY Activity Type Activity Date Activity User E-Sign Co-Sign Detail Recorded Client Recorded Date Recorded By Document 02/22/22 09:35 MW [id number] 02/22/22 09:48 MW Document 03/15/22 09:06 MW [id number] 03/15/22 09:12 MW 02/22/22 03/15/22 09:35 09:06 - Today's Visit Information Type of service Follow-up Visit Follow-up Visit (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 AP[employer]ICE [employer] ) ) Arrival Mode Ambulatory Ambulatory Transfer Assistance None None Accompanied by dad self Patient Identification Verified (Name & Yes Yes ) Patient Requires Transmission-Based No No Precautions Safety Precautions NA NA Finger Stick Blood Sugar(mg/dl) (if 159 129 indicated): Blood Sugar Stated by Patient Vital Signs Temperature (97.8 F-99.1 F) 97.2 F L 95.3 F L Temperature Source Temporal Temporal Pulse Rate (60-100) 98 81 Pulse Location Monitor Monitor Respiratory Rate (12-18) 18 18 Respiratory rate source Observation Observation Oxygen Delivery Method Room Air Room Air Blood Pressure (90/60-120/80) 110/77 126/77 H Blood Pressure Mean (mm Hg) 88 93 Source Monitor Monitor Position Sitting Sitting Blood Pressure Location Left Forearm Right Forearm History Since Last Visit- (Skip if this is Patient's initial visit) Have you changed medications since your No No last visit? Any new allergies or adverse reactions No No Had a fall/change in ADL's that may No No increase risk of falls Signs or symptoms of abuse and/or No No neglect since last visit Have you been in the hospital since your No No last visit? Has dressing in place as prescribed Yes Yes Has compression in place as prescribed Yes Yes Has offloadiing in place as prescribed N/A N/A Experienced any changes in pain level or No management Left Footwear Regular Shoe Regular Shoe Right Footwear Regular Shoe Regular Shoe Pain Scale: 0-10 Numeric Is Patient Pain Free? Yes Yes - Nurse 1 - General Ulcer Measurement Start: 02/22/22 09:35 Freq: Status: Active Protocol: Activity Type Activity Date Activity User E-Sign Co-Sign Detail Recorded Client Recorded Date Recorded By Document 02/22/22 09:35 MW [id number] 02/22/22 09:48 MW Document 03/15/22 09:06 MW [id number] 03/15/22 09:12 MW 02/22/22 03/15/22 09:35 09:06 Wound Center Nurse 1 #5 Left Medial Ankle -Combined with other wound No -Current Size (cm) - Length 0.3 -Current Size (cm) - Width 0.4 -Current Size (cm) - Depth 0.1 -Total Square Cm 0.12 -Photo Taken No -Epithelialization None Present -Tunneling No -Undermining/Tunneling No -Circular Undermining No -Exudate Amt Small -Exudate Type Serosanguineous -Wound Margin Flat & Intact -Granulation Amt None Present (0 %) -Granulation Quality N/A -Slough/Fibrin Yes -Necrosis Amt Large (67-100%) -Necrotic Tissue Type Adherent Slough -Structure Exposed N/A -Texture (Verónica-wound Skin Appearance) Assessed, Localized Edema ,Scarring -Moisture (Verónica-wound Skin Appearance) Assessed,Dry/ Scaly -Color (Verónica-wound Skin Appearance) Assessed, Hemosiderin Staining -Temperature (Verónica-wound Skin No Abnormality Appearance) (Pt Warm) -Ulcer Cleansing Soap and Water -Foul Odor after Cleansing No -Anesthetic Used 5% Lidocaine Gel #4 Left Perera -Combined with other wound No No -Current Size (cm) - Length 4.7 4.1 -Current Size (cm) - Width 2.5 1.4 -Current Size (cm) - Depth 0.2 0.1 -Total Square Cm 11.75 5.74 -Date of Last Picture (Recall this 03/15/22 field) -Photo Taken No Yes -Epithelialization None Present Small 1-33% -Tunneling No No -Undermining/Tunneling No No -Circular Undermining No No -Exudate Amt Medium Medium -Exudate Type Serosanguineous Serosanguineous -Wound Margin Distinct, Distinct, Outline Outline Attached Attached -Granulation Amt Medium (34-66%) Large (67-100%) -Granulation Quality [place] Hyper- granulation -Slough/Fibrin Yes Yes -Necrosis Amt Small (1-33%) Small (1-33%) -Necrotic Tissue Type Adherent Slough Adherent Slough -Structure Exposed N/A N/A -Texture (Verónica-wound Skin Appearance) Assessed, Assessed,Callus Localized Edema ,Scarring -Moisture (Verónica-wound Skin Appearance) Assessed,Dry/ Assessed,Dry/ Scaly Scaly -Color (Verónica-wound Skin Appearance) Assessed, Assessed, Hemosiderin Hemosiderin Staining Staining -Temperature (Verónica-wound Skin No Abnormality No Abnormality Appearance) (Pt Warm) (Pt Warm) -Tenderness on Palpation (Verónica-wound Yes Skin Appearance) -Ulcer Cleansing Soap and Water Soap and Water -Foul Odor after Cleansing No No -Anesthetic Used 5% Lidocaine 5% Lidocaine Gel Gel Lower Limb Edema Present Yes Yes Right Calf (cm) 48.8 Right Ankle (cm) 22.5 Left Calf (cm) 50.5 Left Ankle (cm) 23.5 WC - Nurse 2 - General Ulcer CM Notes Start: 02/22/22 09:35 Freq: Status: Active Protocol: Activity Type Activity Date Activity User E-Sign Co-Sign Detail Recorded Client Recorded Date Recorded By Document 02/22/22 10:00 [id number] 02/22/22 10:08 JF Document 03/03/22 09:36 MW [id number] 03/03/22 09:42 MW Document 03/15/22 09:24 JF [id number] 03/15/22 09:33 JF 02/22/22 03/03/22 03/15/22 10:00 09:36 09:24 Wound Center Nurse 2 6-right medial lower leg -Correct Patient No -Correct Side, Site, Position No -Correct Procedure No -Procedure Performed No #5 Left Medial Ankle -Correct Patient No No -Correct Side, Site, Position No No -Correct Procedure No No -Procedure Performed No No -Post Debridement (cm) - Length 0 -Post Debridement (cm) - Width 0 -Post Debridement (cm) - Depth 0 -Total Square (Post) (cm) 0 -Area of Debridement (cm) - Length 0 -Area of Debridement (cm) - Width 0 -Total Square (Area) (cm) 0 -Wound/Ulcer Outcome Healed- Not Healed Epithelialized -Debridement - Subq, 1st 20sq cm No #4 Left Perera -Time 10:01 09:41 09:25 -Correct Patient Yes Yes Yes -Correct Side, Site, Position Yes Yes Yes -Correct Procedure Yes Yes Yes -Procedure Performed Yes Yes Yes -Type of Procedure Debridement Debridement Debridement -Clinical Debridement Subcutaneous Subcutaneous Subcutaneous -Tissue Removed Subcutaneous Subcutaneous Subcutaneous -Post Debridement (cm) - Length 4.9 4.4 4.2 -Post Debridement (cm) - Width 2.4 2.0 1.4 -Post Debridement (cm) - Depth 0.2 0.2 0.1 -Total Square (Post) (cm) 11.76 8.80 5.88 -Area of Debridement (cm) - Length 4.9 4.4 4.2 -Area of Debridement (cm) - Width 2.4 2.0 1.4 -Total Square (Area) (cm) 11.76 8.80 5.88 -Tunneling No No No -Undermining/Tunneling No No No -Circular Undermining No No No -Wound/Ulcer Outcome Not Healed Not Healed Not Healed -Ulcer Cleansing Rinsed/ Rinsed/ Rinsed/ Irrigated with Irrigated with Irrigated with Saline Saline Saline -Foul Odor after Cleansing No No No -Bioengineered Tissue Yes Yes Yes -Type of Bioengineered Tissue Epifix Mesh Epifix Mesh Epifix Mesh -Expiration Date 05/20/27 11/20/26 12/21/26 -Product Lot Number [id number] -Percent Used 100 100 100 -Lot number of Saline Used [id number] -Bleeding Controlled with Pressure Pressure Pressure -Treatment Response Procedure Procedure Procedure Tolerated Well Tolerated Well Tolerated Well -Offloading No No No -Debridement - Subq, 1st 20sq cm No No No -Apply Skin Sub - 1st 25 sq cm - Legs 1 1 1 -Epifix Mesh (per sq cm) 11 11 11 Pain Scale: 0-10 Numeric Is Patient Pain Free? Yes Yes Yes - Nurse 3 - General Ulcer D/C NN Start: 02/22/22 09:35 Freq: Status: Active Protocol: Activity Type Activity Date Activity User E-Sign Co-Sign Detail Recorded Client Recorded Date Recorded By Document 02/22/22 10:17 [facility] [id number] 02/22/22 10:18 [facility] Document 03/03/22 09:51 KR [id number] 03/03/22 09:52 KR 02/22/22 03/03/22 10:17 09:51 Wound Care Nurse 3 #4 Left Perera -Other Dressing epimesh ABD pad -Primary Dressing Covered/Secured with Dry Gauze & Dry Gauze, Roll Gauze, Secured with Secured with Tape Tape,Other -Other Covering abd Left -Compression Wrap Silvestre Wrap Silvestre Wrap Treatment Response Procedure Tolerated Well Pain Scale: 0-10 Numeric Is Patient Pain Free? Yes Yes WC - Visit Discharge Discharge Condition Stable Stable Ambulatory Status Ambulatory Ambulatory Transportation Private Auto Private Auto Assessment/Plan Assessment/Plan (1) Non-pressure chronic ulcer of left calf with fat layer exposed: CODE(S): L97.222 - Non-pressure chronic ulcer of left calf with fat layer exposed PLAN: Patient examined and evaluated, all findings discussed with patient in detail. Patient will continue Glucerna supplementation. Wounds x1 was excisionally debrided down to including level of subcutaneous tissue, this is documented in the nursing notes predebridement measurements postoperative measurements anesthesia used an instrument used. This was performed with a 5 mm dermal curette. Topical anesthesia used. Hemostasis obtained with light compression. A 4.0 x 4.5 cm epi fix graft was applied to the superior left lower extremity ulceration, no waste. 11 billing units. Dressed with Adaptic and Steri-Strips. New ulceration dressed with hydrogel and DSD. Overlying compression dressing applied. Patient will continue twice weekly home health care dressing changes. She will ambulate as tolerated without assistance. Patient will continue daily elevation compression and exercise to manage edema improve wound healing outcome. And follow-up in 1 week. Wound is improving well at this time. (2) Diabetes mellitus type 2, uncontrolled, with complications: CODE(S): E11.8 - Type 2 diabetes mellitus with unspecified complications; E11.65 - Type 2 diabetes mellitus with hyperglycemia
== END 2022-03-19 23:59 | disposition home or self-care (01) ==
LOC: WC 09:00
PROVIDERS: PCP Internal Medicine; Referring Provider Podiatrist; Visit Provider Podiatrist
DX: L97.222 Non-pressure chronic ulcer of left calf with fat layer exposed (principal); E11.65 Type 2 diabetes mellitus with hyperglycemia
CPT/HCPCS: 15271; Q4186

== ENCOUNTER 2022-04-19 09:00 | Outpatient (RCR) | payer MEDICAID, SELFPAY ==
[2022-03-20 00:38] VITALS: BP 126/77; PULSE 81; RESP 18; TEMP 35.2
[2022-03-22 09:05] VITALS: BP 110/72; PULSE 96; RESP 16; TEMP 35.7
--- NOTE | 2022-03-22 09:44 | PN.PCM_ITS ---
History of Present Illness Date of Service: 03/22/22 Chief Complaint: Follow-up for 3 open areas on her left lower leg anterior perera History of Wound: 50-year-old female presents for follow-up on chronic ulceration to left anterior leg. Patient's right leg ulceration has healed at this time. Patient denies any fever chills nausea vomiting chest pain calf pain shortness of breath. Patient denies any changes since her previous visit has been compliant with treatment. Objective Data Objective Data Vital Signs: Vital Signs Temp Pulse Resp BP 96.2 F L 96 16 110/72 03/22/22 09:05 03/22/22 09:05 03/22/22 09:05 03/22/22 09:05 Oxygen Delivery Method Room Air Physical Exam Narrative Patient is alert oriented to person place and time. Patient is ambulatory a mbulates without assistance. Vascular: Dorsalis pedis posterior tibial pulses diminished to bilateral lower extremity. Atrophic changes noted to skin such as thinning shiny and taut appearance. Diminished hair growth noted to bilateral lower extremity. Capillary fill time is less than 5 seconds to the digits bilaterally. Neurologic light touch protective sensation diminished to bilateral lower extremity Dermatologic: Thickness ulceration noted to the anterior leg, left medial leg wound healed. Pre and post debridement measurements were documented in nursing notes. These wounds demonstrate mixed fibrogranular base 50-50. Periwound skin appears devoid of any signs of infection, there was no deep probing at this time. New ulceration to medial left ankle along the course of great saphenous vein. This ulceration is small has no evidence of deep probing no signs of infection and demonstrates 100% granular base with minimal drainage. Musculoskeletal: No pain to calf squeeze bilateral lower extremity muscular strength full to bilateral lower extremity compartments. 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 ) Arrival Mode Ambulatory Transfer Assistance None Patient Identification Verified (Name & Yes ) Patient Requires Transmission-Based No Precautions Vital Signs Temperature (97.8 F-99.1 F) 96.2 F L Temperature Source Temporal Pulse Rate (60-100) 96 Pulse Location Monitor Respiratory Rate (12-18) 16 Respiratory rate source Observation Oxygen Delivery Method Room Air Blood Pressure (90/60-120/80) 110/72 Blood Pressure Mean (mm Hg) 84 Source Monitor Position Sitting Blood Pressure Location Left Forearm History Since Last Visit- (Skip if this is Patient's initial visit) Have you changed medications since your No last visit? Any new allergies or adverse reactions No Had a fall/change in ADL's that may No increase risk of falls Signs or symptoms of abuse and/or No neglect since last visit Have you been in the hospital since your No last visit? Has dressing in place as prescribed Yes Has compression in place as prescribed Yes Has offloadiing in place as prescribed N/A Experienced any changes in pain level or No management Left Footwear Regular Shoe Right Footwear Regular Shoe Pain Scale: 0-10 Numeric Is Patient Pain Free? Yes - Nurse 1 - General Ulcer Measurement Start: 03/22/22 09:05 Freq: Status: Active Protocol: Activity Type Activity Date Activity User E-Sign Co-Sign Detail Recorded Client Recorded Date Recorded By Document 03/22/22 09:05 [facility] [id number] 03/22/22 09:16 [facility] 03/22/22 09:05 Wound Center Nurse 1 #5 Left Medial Ankle -Combined with other wound No -Current Size (cm) - Length 0.2 -Current Size (cm) - Width 0.3 -Current Size (cm) - Depth 0.1 -Total Square Cm 0.06 -Date of Last Picture (Recall this 03/22/22 field) -Photo Taken Yes -Epithelialization Small 1-33% -Tunneling No -Undermining/Tunneling No -Circular Undermining No -Exudate Amt Small -Exudate Type Serosanguineous -Wound Margin Distinct, Outline Attached -Granulation Amt Medium (34-66%) -Granulation Quality Red -Slough/Fibrin Yes -Necrosis Amt Medium (34-66%) -Necrotic Tissue Type Adherent Slough -Texture (Verónica-wound Skin Appearance) Assessed, Scarring -Moisture (Verónica-wound Skin Appearance) Assessed -Color (Verónica-wound Skin Appearance) Assessed -Temperature (Verónica-wound Skin No Abnormality Appearance) (Pt Warm) -Tenderness on Palpation (Verónica-wound No Skin Appearance) -Ulcer Cleansing Soap and Water -Foul Odor after Cleansing No -Anesthetic Used 4% Lidocaine Solution #4 Left Perera -Combined with other wound No -Current Size (cm) - Length 3.9 -Current Size (cm) - Width 1.3 -Current Size (cm) - Depth 0.2 -Total Square Cm 5.07 -Date of Last Picture (Recall this 03/22/22 field) -Photo Taken Yes -Epithelialization Small 1-33% -Tunneling No -Undermining/Tunneling No -Circular Undermining No -Exudate Amt Medium -Exudate Type Serosanguineous -Wound Margin Distinct, Outline Attached -Granulation Amt Small (1-33%) -Granulation Quality Red -Slough/Fibrin Yes -Necrosis Amt Large (67-100%) -Necrotic Tissue Type Adherent Slough -Texture (Verónica-wound Skin Appearance) Assessed, Scarring -Moisture (Ver[place]inc[place]-wound Skin Appearance) Assessed -Color (Verónica-wound Skin Appearance) Assessed, Hemosiderin Staining -Temperature (Verónica-wound Skin No Abnormality Appearance) (Pt Warm) -Tenderness on Palpation (Verónica-wound No Skin Appearance) -Ulcer Cleansing Soap and Water -Foul Odor after Cleansing No -Anesthetic Used 4% Lidocaine Solution Lower Limb Edema Present Yes Left Calf (cm) 49.4 Left Ankle (cm) 22.5 WC - Nurse 2 - General Ulcer CM Notes Start: 03/22/22 09:05 Freq: Status: Active Protocol: Activity Type Activity Date Activity User E-Sign Co-Sign Detail Recorded Client Recorded Date Recorded By Document 03/22/22 09:41 CARLOS [id number] 03/22/22 09:43 CARLOS 03/22/22 09:41 Wound Center Nurse 2 #5 Left Medial Ankle -Time 09:42 -Correct Patient Yes -Correct Side, Site, Position Yes -Correct Procedure Yes -Procedure Performed Yes -Type of Procedure Debridement -Clinical Debridement Subcutaneous -Tissue Removed Subcutaneous -Post Debridement (cm) - Length 0.3 -Post Debridement (cm) - Width 0.3 -Post Debridement (cm) - Depth 0.1 -Total Square (Post) (cm) 0.09 -Area of Debridement (cm) - Length 0.3 -Area of Debridement (cm) - Width 0.3 -Total Square (Area) (cm) 0.09 -Tunneling No -Undermining/Tunneling No -Circular Undermining No -Wound/Ulcer Outcome Not Healed -Ulcer Cleansing Rinsed/ Irrigated with Saline -Foul Odor after Cleansing No -Bioengineered Tissue No -Bleeding Controlled with Pressure -Treatment Response Procedure Tolerated Well -Offloading No -Debridement - Subq, 1st 20sq cm Yes #4 Left Perera -Time 09:42 -Correct Patient Yes -Correct Side, Site, Position Yes -Correct Procedure Yes -Procedure Performed Yes -Type of Procedure Debridement -Clinical Debridement Subcutaneous -Tissue Removed Subcutaneous -Post Debridement (cm) - Length 4 -Post Debridement (cm) - Width 1.3 -Post Debridement (cm) - Depth 0.2 -Total Square (Post) (cm) 5.2 -Area of Debridement (cm) - Length 4.0 -Area of Debridement (cm) - Width 1.3 -Total Square (Area) (cm) 5.20 -Tunneling No -Undermining/Tunneling No -Circular Undermining No -Wound/Ulcer Outcome Not Healed -Ulcer Cleansing Rinsed/ Irrigated with Saline -Foul Odor after Cleansing No -Bioengineered Tissue Yes -Type of Bioengineered Tissue Epifix Mesh -Expiration Date 12/21/26 -Product Lot Number [id number] -Percent Used 100 -Lot number of Saline Used [id number] -Bleeding Controlled with Pressure -Treatment Response Procedure Tolerated Well -Offloading No -Debridement - Subq, 1st 20sq cm No -Apply Skin Sub - 1st 25 sq cm - Legs 1 -Epifix Mesh (per sq cm) 11 Pain Scale: 0-10 Numeric Is Patient Pain Free? Yes Assessment/Plan Assessment/Plan (1) Non-pressure chronic ulcer of left calf with fat layer exposed: CODE(S): L97.222 - Non-pressure chronic ulcer of left calf with fat layer exposed PLAN: Patient examined and evaluated, all findings discussed with patient in detail. Patient will continue Glucerna supplementation. Wounds x1 was excisionally debrided down to including level of subcutaneous tissue, this is documented in the nursing notes predebridement measurements postoperative measurements anesthesia used an instrument used. This was performed with a 5 mm dermal curette. Topical anesthesia used. Hemostasis obtained with light compression. A 4.0 x 4.5 cm epi fix graft was applied to the superior left lower extremity ulceration, no waste. 11 billing units. Dressed with Adaptic and Steri-Strips. New ulceration dressed with hydrogel and DSD. Overlying compression dressing applied. Patient will continue twice weekly home health care dressing changes. She will ambulate as tolerated without assistance. Patient will continue daily elevation compression and exercise to manage edema improve wound healing outcome. And follow-up in 1 week. Wound is improving significantly at this time. (2) Venous insufficiency of both lower extremities: CODE(S): I87.2 - Venous insufficiency (chronic) (peripheral)
[2022-03-29 09:08] VITALS: BP 117/71; PULSE 81; RESP 16; TEMP 35.7
--- NOTE | 2022-03-29 09:31 | PCM.WC.PN ---
History of Present Illness Date of Service: 03/29/22 Chief Complaint: Follow-up for 3 open areas on her left lower leg anterior perera History of Wound: 50-year-old female presents for follow-up on chronic ulceration to left anterior leg. Patient's right leg ulceration has healed at this time. Patient denies any fever chills nausea vomiting chest pain calf pain shortness of breath. Patient denies any changes since her previous visit has been compliant with treatment. Objective Data Objective Data Vital Signs: Vital Signs Temp Pulse Resp BP 96.2 F L 81 16 117/71 03/29/22 09:08 03/29/22 09:08 03/29/22 09:08 03/29/22 09:08 Oxygen Delivery Method Room Air Physical Exam Narrative Patient is alert oriented to person place and time. Patient is ambulatory ambulates without assistance. Vascular: Dorsalis pedis posterior tibial pulses diminished to bilateral lower extremity. Atrophic changes noted to skin such as thinning shiny and taut appearance. Diminished hair growth noted to bilateral lower extremity. Capillary fill time is less than 5 seconds to the digits bilaterally. Neurologic light touch protective sensation diminished to bilateral lower extremity Dermatologic: Thickness ulceration noted to the anterior leg, left medial leg wound healed. Pre and post debridement measurements were documented in nursing notes. These wounds demonstrate mixed fibrogranular base 50-50. Periwound skin appears devoid of any signs of infection, there was no deep probing at this time. New ulceration to medial left ankle along the course of great saphenous vein. This ulceration is small has no evidence of deep probing no signs of infection and demonstrates 100% granular base with minimal drainage. Musculoskeletal: No pain to calf squeeze bilateral lower extremity muscular strength full to bilateral lower extremity compartments. No gross deformity contributing to wound formation at this time Debridement Note Debridement Note Post-Debridement Measurements and Additional Note: Post-Debridement Measurements/Treatment NILO - Nurse 1 - General Ulcer Assessment Start: 03/22/22 09:05 Freq: Status: Active Protocol: PERRY Activity Type Activity Date Activity User E-Sign Co-Sign Detail Recorded Client Recorded Date Recorded By Document 03/22/22 09:05 [facility] [id number] 03/22/22 09:16 BM Document 03/29/22 09:08 MW [id number] 03/29/22 09:18 MW 03/22/22 03/29/22 09:05 09:08 - Today's Visit Information Type of service Follow-up Visit Follow-up Visit (Physician/OVERHEAD DOOR TECHNICIAN (Physician/OVERHEAD DOOR TECHNICIAN ) ) Arrival Mode Ambulatory Ambulatory Transfer Assistance None None Accompanied by self Patient Identification Verified (Name & Yes Yes ) Patient Requires Transmission-Based No No Precautions Safety Precautions NA Finger Stick Blood Sugar(mg/dl) (if 119 indicated): Blood Sugar Stated by Patient Vital Signs Temperature (97.8 F-99.1 F) 96.2 F L 96.2 F L Temperature Source Temporal Temporal Pulse Rate (60-100) 96 81 Pulse Location Monitor Monitor Respiratory Rate (12-18) 16 16 Respiratory rate source Observation Observation Oxygen Delivery Method Room Air Room Air Blood Pressure (90/60-120/80) 110/72 117/71 Blood Pressure Mean (mm Hg) 84 86 Source Monitor Monitor Position Sitting Sitting Blood Pressure Location Left Forearm Left Forearm History Since Last Visit- (Skip if this is Patient's initial visit) Have you changed medications since your No No last visit? Any new allergies or adverse reactions No No Had a fall/change in ADL's that may No No increase risk of falls Signs or symptoms of abuse and/or No No neglect since last visit Have you been in the hospital since your No No last visit? Has dressing in place as prescribed Yes Yes Has compression in place as prescribed Yes Yes Has offloadiing in place as prescribed N/A N/A Experienced any changes in pain level or No No management Left Footwear Regular Shoe Regular Shoe Right Footwear Regular Shoe Regular Shoe Pain Scale: 0-10 Numeric Is Patient Pain Free? Yes Yes - Nurse 1 - General Ulcer Measurement Start: 03/22/22 09:05 Freq: Status: Active Protocol: Activity Type Activity Date Activity User E-Sign Co-Sign Detail Recorded Client Recorded Date Recorded By Document 03/22/22 09:05 [facility] [id number] 03/22/22 09:16 [facility] Document 03/29/22 09:08 [id number] 03/29/22 09:18 MW 03/22/22 03/29/22 09:05 09:08 Wound Center Nurse 1 #5 Left Medial Ankle -Combined with other wound No No -Current Size (cm) - Length 0.2 0.1 -Current Size (cm) - Width 0.3 0.1 -Current Size (cm) - Depth 0.1 0.1 -Total Square Cm 0.06 0.01 -Date of Last Picture (Recall this 03/22/22 field) -Photo Taken Yes No -Epithelialization Small 1-33% Large 67-100% -Tunneling No No -Undermining/Tunneling No No -Circular Undermining No No -Exudate Amt Small None Present -Exudate Type Serosanguineous -Wound Margin Distinct, Outline Attached -Granulation Amt Medium (34-66%) None Present (0 %) -Granulation Quality Red N/A -Slough/Fibrin Yes No -Necrosis Amt Medium (34-66%) None Present (0 %) -Necrotic Tissue Type Adherent Slough -Structure Exposed N/A -Texture (Verónica-wound Skin Appearance) Assessed, Assessed, Scarring Scarring -Moisture (Verónica-wound Skin Appearance) Assessed No Abnormality, Assessed -Color (Verónica-wound Skin Appearance) Assessed No Abnormality, Assessed -Temperature (Verónica-wound Skin No Abnormality Appearance) (Pt Warm) -Tenderness on Palpation (Verónica-wound No Skin Appearance) -Ulcer Cleansing Soap and Water Soap and Water -Foul Odor after Cleansing No No -Anesthetic Used 4% Lidocaine Solution #4 Left Perera -Combined with other wound No No -Current Size (cm) - Length 3.9 3.2 -Current Size (cm) - Width 1.3 1.0 -Current Size (cm) - Depth 0.2 0.1 -Total Square Cm 5.07 3.20 -Date of Last Picture (Recall this 03/22/22 03/29/22 field) -Photo Taken Yes Yes -Epithelialization Small 1-33% None Present -Tunneling No No -Undermining/Tunneling No No -Circular Undermining No No -Exudate Amt Medium Small -Exudate Type Serosanguineous Serosanguineous -Wound Margin Distinct, Flat & Intact Outline Attached -Granulation Amt Small (1-33%) Small (1-33%) -Granulation Quality Red [place] -Slough/Fibrin Yes Yes -Necrosis Amt Large (67-100%) Large (67-100%) -Necrotic Tissue Type Adherent Slough Adherent Slough -Structure Exposed N/A -Texture (Verónica-wound Skin Appearance) Assessed, Assessed, Scarring Localized Edema ,Scarring -Moisture (Verónica-wound Skin Appearance) Assessed Assessed,Dry/ Scaly -Color (Verónica-wound Skin Appearance) Assessed, Assessed, Hemosiderin Hemosiderin Staining Staining -Temperature (Verónica-wound Skin No Abnormality No Abnormality Appearance) (Pt Warm) (Pt Warm) -Tenderness on Palpation (Verónica-wound No No Skin Appearance) -Ulcer Cleansing Soap and Water Soap and Water -Foul Odor after Cleansing No No -Anesthetic Used 4% Lidocaine 4% Lidocaine Solution Solution Lower Limb Edema Present Yes Yes Point of Measurement (cm from the distal 50.0 point) Left Calf (cm) 49.4 Left Ankle (cm) 22.5 22.7 WC - Nurse 2 - General Ulcer CM Notes Start: 03/22/22 09:05 Freq: Status: Active Protocol: Activity Type Activity Date Activity User E-Sign Co-Sign Detail Recorded Client Recorded Date Recorded By Document 03/22/22 09:41 CARLOS [id number] 03/22/22 09:43 CARLOS 03/22/22 09:41 Wound Center Nurse 2 #5 Left Medial Ankle -Time 09:42 -Correct Patient Yes -Correct Side, Site, Position Yes -Correct Procedure Yes -Procedure Performed Yes -Type of Procedure Debridement -Clinical Debridement Subcutaneous -Tissue Removed Subcutaneous -Post Debridement (cm) - Length 0.3 -Post Debridement (cm) - Width 0.3 -Post Debridement (cm) - Depth 0.1 -Total Square (Post) (cm) 0.09 -Area of Debridement (cm) - Length 0.3 -Area of Debridement (cm) - Width 0.3 -Total Square (Area) (cm) 0.09 -Tunneling No -Undermining/Tunneling No -Circular Undermining No -Wound/Ulcer Outcome Not Healed -Ulcer Cleansing Rinsed/ Irrigated with Saline -Foul Odor after Cleansing No -Bioengineered Tissue No -Bleeding Controlled with Pressure -Treatment Response Procedure Tolerated Well -Offloading No -Debridement - Subq, 1st 20sq cm Yes #4 Left Perera -Time 09:42 -Correct Patient Yes -Correct Side, Site, Position Yes -Correct Procedure Yes -Procedure Performed Yes -Type of Procedure Debridement -Clinical Debridement Subcutaneous -Tissue Removed Subcutaneous -Post Debridement (cm) - Length 4 -Post Debridement (cm) - Width 1.3 -Post Debridement (cm) - Depth 0.2 -Total Square (Post) (cm) 5.2 -Area of Debridement (cm) - Length 4.0 -Area of Debridement (cm) - Width 1.3 -Total Square (Area) (cm) 5.20 -Tunneling No -Undermining/Tunneling No -Circular Undermining No -Wound/Ulcer Outcome Not Healed -Ulcer Cleansing Rinsed/ Irrigated with Saline -Foul Odor after Cleansing No -Bioengineered Tissue Yes -Type of Bioengineered Tissue Epifix Mesh -Expiration Date 12/21/26 -Product Lot Number [id number] -Percent Used 100 -Lot number of Saline Used [id number] -Bleeding Controlled with Pressure -Treatment Response Procedure Tolerated Well -Offloading No -Debridement - Subq, 1st 20sq cm No -Apply Skin Sub - 1st 25 sq cm - Legs 1 -Epifix Mesh (per sq cm) 11 Pain Scale: 0-10 Numeric Is Patient Pain Free? Yes - Nurse 3 - General Ulcer D/C NN Start: 03/22/22 09:05 Freq: Status: Active Protocol: Activity Type Activity Date Activity User E-Sign Co-Sign Detail Recorded Client Recorded Date Recorded By Document 03/22/22 09:45 [facility] [id number] 03/22/22 09:47 [facility] 03/22/22 09:45 Wound Care Nurse 3 #5 Left Medial Ankle -Ulcer Cleansing Rinsed/ Irrigated with Saline -Foul Odor after Cleansing No -Primary Dressing Applied Other -Other Dressing hydrogel -Primary Dressing Covered/Secured with Dry Gauze & Roll Gauze, Secured with Tape -Other Covering drsg per mw rn #4 Left Perera -Other Dressing epifix -Primary Dressing Covered/Secured with Dry Gauze & Roll Gauze, Secured with Tape -Other Covering abd; drsg per mw rn Left -Compression Wrap Silvestre Wrap Treatment Response Procedure Tolerated Well Pain Scale: 0-10 Numeric Is Patient Pain Free? Yes - Visit Discharge Discharge Condition Stable Ambulatory Status Ambulatory,Cane Transportation Private Auto Assessment/Plan Assessment/Plan (1) Non-pressure chronic ulcer of left calf with fat layer exposed: CODE(S): L97.222 - Non-pressure chronic ulcer of left calf with fat layer exposed PLAN: Patient examined and evaluated, all findings discussed with patient in detail. Patient will continue Glucerna supplementation. Wounds x1 was excisionally debrided down to including level of subcutaneous tissue, this is documented in the nursing notes predebridement measurements postoperative measurements anesthesia used an instrument used. This was performed with a 5 mm dermal curette. Topical anesthesia used. Hemostasis obtained with light compression. A 4.0 x 4.5 cm epi fix graft was applied to the superior left lower extremity ulceration, no waste. 11 billing units. Dressed with Adaptic and Steri-Strips. New ulceration dressed with hydrogel and DSD. Overlying compression dressing applied. Patient will continue twice weekly home health care dressing changes. She will ambulate as tolerated without assistance. Patient will continue daily elevation compression and exercise to manage edema improve wound healing outcome. And follow-up in 1 week. Wound is improving significantly at this time. (2) Venous insufficiency of both lower extremities: CODE(S): I87.2 - Venous insufficiency (chronic) (peripheral)
[2022-04-05 09:04] VITALS: BP 157/88; PULSE 69; TEMP 36.2
--- NOTE | 2022-04-05 09:31 | PCM.WC.PN ---
History of Present Illness Date of Service: 04/05/22 Chief Complaint: Follow-up for 3 open areas on her left lower leg anterior perera History of Wound: 50-year-old female presents for follow-up on chronic ulceration to left anterior leg. Patient's right leg ulceration has healed at this time. Patient denies any fever chills nausea vomiting chest pain calf pain shortness of breath. Patient denies any changes since her previous visit has been compliant with treatment. Objective Data Objective Data Vital Signs: Vital Signs Temp Pulse Resp BP 97.1 F L 69 16 157/88 H 04/05/22 09:04 04/05/22 09:04 03/29/22 09:08 04/05/22 09:04 Oxygen Delivery Method Room Air Physical Exam Narrative Patient is alert oriented to person place and time. Patient is ambulatory ambulates without assistance. Vascular: Dorsalis pedis posterior tibial pulses diminished to bilateral lower extremity. Atrophic changes noted to skin such as thinning shiny and taut appearance. Diminished hair growth noted to bilateral lower extremity. Capillary fill time is less than 5 seconds to the digits bilaterally. Neurologic light touch protective sensation diminished to bilateral lower extremity Dermatologic: Thickness ulceration noted to the anterior leg, left medial leg wound healed. Pre and post debridement measurements were documented in nursing notes. These wounds demonstrate mixed fibrogranular base 50-50. Periwound skin appears devoid of any signs of infection, there was no deep probing at this time. New ulceration to medial left ankle along the course of great saphenous vein. This ulceration is small has no evidence of deep probing no signs of infection and demonstrates 100% granular base with minimal drainage. Musculoskeletal: No pain to calf squeeze bilateral lower extremity muscular strength full to bilateral lower extremity compartments. No gross deformity contributing to wound formation at this time Debridement Note Debridement Note Post-Debridement Measurements and Additional Note: Post-Debridement Measurements/Treatment NILO - Nurse 1 - General Ulcer Assessment Start: 03/22/22 09:05 Freq: Status: Active Protocol: PERRY Activity Type Activity Date Activity User E-Sign Co-Sign Detail Recorded Client Recorded Date Recorded By Document 03/22/22 09:05 [facility] [id number] 03/22/22 09:16 BMF Document 03/29/22 09:08 MW [id number] 03/29/22 09:18 MW Document 04/05/22 09:04 KR [id number] 04/05/22 09:05 KR 03/22/22 03/29/22 04/05/22 09:05 09:08 09:04 - Today's Visit Information Type of service Follow-up Visit Follow-up Visit Follow-up Visit (Physician/MANUFACTURING CHIEF ENGINEER (Physician/MANUFACTURING CHIEF ENGINEER (Physician/MANUFACTURING CHIEF ENGINEER ) ) ) Arrival Mode Ambulatory Ambulatory Ambulatory Transfer Assistance None None Accompanied by self Patient Identification Verified (Name & Yes Yes Yes ) Patient Requires Transmission-Based No No Precautions Safety Precautions NA Finger Stick Blood Sugar(mg/dl) (if 119 indicated): Blood Sugar Stated by Patient Vital Signs Temperature (97.8 F-99.1 F) 96.2 F L 96.2 F L 97.1 F L Temperature Source Temporal Temporal Temporal Pulse Rate (60-100) 96 81 69 Pulse Location Monitor Monitor Monitor Respiratory Rate (12-18) 16 16 Respiratory rate source Observation Observation Oxygen Delivery Method Room Air Room Air Blood Pressure (90/60-120/80) 110/72 117/71 157/88 H Blood Pressure Mean (mm Hg) 84 86 111 Source Monitor Monitor Monitor Position Sitting Sitting Sitting Blood Pressure Location Left Forearm Left Forearm Right Arm History Since Last Visit- (Skip if this is Patient's initial visit) Have you changed medications since your No No No last visit? Any new allergies or adverse reactions No No No Had a fall/change in ADL's that may No No No increase risk of falls Signs or symptoms of abuse and/or No No No neglect since last visit Have you been in the hospital since your No No No last visit? Has dressing in place as prescribed Yes Yes Yes Has compression in place as prescribed Yes Yes N/A Has offloadiing in place as prescribed N/A N/A N/A Experienced any changes in pain level or No No No management Left Footwear Regular Shoe Regular Shoe Regular Shoe Right Footwear Regular Shoe Regular Shoe Regular Shoe Pain Scale: 0-10 Numeric Is Patient Pain Free? Yes Yes Yes - Nurse 1 - General Ulcer Measurement Start: 03/22/22 09:05 Freq: Status: Active Protocol: Activity Type Activity Date Activity User E-Sign Co-Sign Detail Recorded Client Recorded Date Recorded By Document 03/22/22 09:05 [facility] [id number] 03/22/22 09:16 BMF Document 03/29/22 09:08 MW [id number] 03/29/22 09:18 MW Document 04/05/22 09:04 KR [id number] 04/05/22 09:05 KR 03/22/22 03/29/22 04/05/22 09:05 09:08 09:04 Wound Center Nurse 1 #5 Left Medial Ankle -Combined with other wound No No -Current Size (cm) - Length 0.2 0.1 -Current Size (cm) - Width 0.3 0.1 -Current Size (cm) - Depth 0.1 0.1 -Total Square Cm 0.06 0.01 -Date of Last Picture (Recall this 03/22/22 field) -Photo Taken Yes No -Epithelialization Small 1-33% Large 67-100% -Tunneling No No -Undermining/Tunneling No No -Circular Undermining No No -Exudate Amt Small None Present -Exudate Type Serosanguineous -Wound Margin Distinct, Outline Attached -Granulation Amt Medium (34-66%) None Present (0 %) -Granulation Quality Red N/A -Slough/Fibrin Yes No -Necrosis Amt Medium (34-66%) None Present (0 %) -Necrotic Tissue Type Adherent Slough -Structure Exposed N/A -Texture (Verónica-wound Skin Appearance) Assessed, Assessed, Scarring Scarring -Moisture (Verónica-wound Skin Appearance) Assessed No Abnormality, Assessed -Color (Verónica-wound Skin Appearance) Assessed No Abnormality, Assessed -Temperature (Verónica-wound Skin No Abnormality Appearance) (Pt Warm) -Tenderness on Palpation (Verónica-wound No Skin Appearance) -Ulcer Cleansing Soap and Water Soap and Water -Foul Odor after Cleansing No No -Anesthetic Used 4% Lidocaine Solution #4 Left Perera -Combined with other wound No No -Current Size (cm) - Length 3.9 3.2 2.4 -Current Size (cm) - Width 1.3 1.0 1 -Current Size (cm) - Depth 0.2 0.1 0.1 -Total Square Cm 5.07 3.20 2.4 -Date of Last Picture (Recall this 03/22/22 03/29/22 field) -Photo Taken Yes Yes -Epithelialization Small 1-33% None Present -Tunneling No No -Undermining/Tunneling No No -Circular Undermining No No -Exudate Amt Medium Small Small -Exudate Type Serosanguineous Serosanguineous Serosanguineous -Wound Margin Distinct, Flat & Intact Distinct, Outline Outline Attached Attached -Granulation Amt Small (1-33%) Small (1-33%) Medium (34-66%) -Granulation Quality [place] -Slough/Fibrin Yes Yes -Necrosis Amt Large (67-100%) Large (67-100%) None Present (0 %) -Necrotic Tissue Type Adherent Slough Adherent Slough -Structure Exposed N/A -Texture (Verónica-wound Skin Appearance) Assessed, Assessed, Assessed, Scarring Localized Edema Scarring ,Scarring -Moisture (Verónica-wound Skin Appearance) Assessed Assessed,Dry/ No Abnormality, Scaly Assessed -Color (Verónica-wound Skin Appearance) Assessed, Assessed, No Abnormality, Hemosiderin Hemosiderin Assessed Staining Staining -Temperature (Verónica-wound Skin No Abnormality No Abnormality No Abnormality Appearance) (Pt Warm) (Pt Warm) (Pt Warm) -Tenderness on Palpation (Verónica-wound No No No Skin Appearance) -Ulcer Cleansing Soap and Water Soap and Water Soap and Water -Foul Odor after Cleansing No No No -Anesthetic Used 4% Lidocaine 4% Lidocaine 4% Lidocaine Solution Solution Solution,5% Lidocaine Gel Lower Limb Edema Present Yes Yes Point of Measurement (cm from the distal 50.0 point) Left Calf (cm) 49.4 Left Ankle (cm) 22.5 22.7 WC - Nurse 2 - General Ulcer CM Notes Start: 03/22/22 09:05 Freq: Status: Active Protocol: Activity Type Activity Date Activity User E-Sign Co-Sign Detail Recorded Client Recorded Date Recorded By Document 03/22/22 09:41 [id number] 03/22/22 09:43 Document 03/29/22 09:24 CARLOS [id number] 03/29/22 09:32 Document 04/05/22 09:24 [id number] 04/05/22 09:30 03/22/22 03/29/22 04/05/22 09:41 09:24 09:24 Wound Center Nurse 2 #5 Left Medial Ankle -Time 09:42 -Correct Patient Yes No -Correct Side, Site, Position Yes No -Correct Procedure Yes No -Procedure Performed Yes No -Type of Procedure Debridement -Clinical Debridement Subcutaneous -Tissue Removed Subcutaneous -Post Debridement (cm) - Length 0.3 0 -Post Debridement (cm) - Width 0.3 0 -Post Debridement (cm) - Depth 0.1 0 -Total Square (Post) (cm) 0.09 0 -Area of Debridement (cm) - Length 0.3 0 -Area of Debridement (cm) - Width 0.3 0 -Total Square (Area) (cm) 0.09 0 -Tunneling No -Undermining/Tunneling No -Circular Undermining No -Wound/Ulcer Outcome Not Healed Healed- Epithelialized -Ulcer Cleansing Rinsed/ Irrigated with Saline -Foul Odor after Cleansing No -Bioengineered Tissue No -Bleeding Controlled with Pressure -Treatment Response Procedure Tolerated Well -Offloading No -Debridement - Subq, 1st 20sq cm Yes #4 Left Perera -Time 09:42 09:25 09:24 -Correct Patient Yes Yes Yes -Correct Side, Site, Position Yes Yes Yes -Correct Procedure Yes Yes Yes -Procedure Performed Yes Yes Yes -Type of Procedure Debridement Debridement Debridement -Clinical Debridement Subcutaneous Subcutaneous Subcutaneous -Tissue Removed Subcutaneous Subcutaneous Subcutaneous -Post Debridement (cm) - Length 4 4.0 3.5 -Post Debridement (cm) - Width 1.3 1.0 1.0 -Post Debridement (cm) - Depth 0.2 0.1 0.1 -Total Square (Post) (cm) 5.2 4.00 3.50 -Area of Debridement (cm) - Length 4.0 4.0 3.5 -Area of Debridement (cm) - Width 1.3 1.0 1.0 -Total Square (Area) (cm) 5.20 4.00 3.50 -Tunneling No No No -Undermining/Tunneling No No No -Circular Undermining No No No -Wound/Ulcer Outcome Not Healed Not Healed Not Healed -Ulcer Cleansing Rinsed/ Rinsed/ Rinsed/ Irrigated with Irrigated with Irrigated with Saline Saline Saline -Foul Odor after Cleansing No No No -Bioengineered Tissue Yes Yes Yes -Type of Bioengineered Tissue Epifix Mesh Epifix Mesh Epifix -Expiration Date 12/21/26 12/21/26 10/20/26 -Product Lot Number [id number] -Percent Used 100 100 100 -Lot number of Saline Used [id number] -Bleeding Controlled with Pressure Pressure Pressure -Treatment Response Procedure Procedure Procedure Tolerated Well Tolerated Well Tolerated Well -Offloading No No No -Debridement - Subq, 1st 20sq cm No No No -Apply Skin Sub - 1st 25 sq cm - Legs 1 1 1 -Epifix (per sq cm) 4 -Epifix Mesh (per sq cm) 11 11 Pain Scale: 0-10 Numeric Is Patient Pain Free? Yes Yes Yes - Nurse 3 - General Ulcer D/C NN Start: 03/22/22 09:05 Freq: Status: Active Protocol: Activity Type Activity Date Activity User E-Sign Co-Sign Detail Recorded Client Recorded Date Recorded By Document 03/22/22 09:45 [facility] [id number] 03/22/22 09:47 [facility] Document 03/29/22 09:36 [facility] [id number] 03/29/22 09:37 [facility] 03/22/22 03/29/22 09:45 09:36 Wound Care Nurse 3 #5 Left Medial Ankle -Ulcer Cleansing Rinsed/ Irrigated with Saline -Foul Odor after Cleansing No -Primary Dressing Applied Other -Other Dressing hydrogel -Primary Dressing Covered/Secured with Dry Gauze & Roll Gauze, Secured with Tape -Other Covering drsg per mw rn #4 Left Perera -Other Dressing epifix EPIFIX -Primary Dressing Covered/Secured with Dry Gauze & Dry Gauze & Roll Gauze, Roll Gauze, Secured with Secured with Tape Tape -Other Covering abd; drsg per DRSG PER DL mw rn LLPN Left -Compression Wrap Silvestre Wrap Silvestre Wrap Treatment Response Procedure Tolerated Well Pain Scale: 0-10 Numeric Is Patient Pain Free? Yes Yes - Visit Discharge Discharge Condition Stable Stable Ambulatory Status Ambulatory,Cane Ambulatory Transportation Private Auto Private Auto Assessment/Plan Assessment/Plan (1) Non-pressure chronic ulcer of left calf with fat layer exposed: CODE(S): L97.222 - Non-pressure chronic ulcer of left calf with fat layer exposed PLAN: Patient examined and evaluated, all findings discussed with patient in detail. Patient will continue Glucerna supplementation. Wounds x1 was excisionally debrided down to including level of subcutaneous tissue, this is documented in the nursing notes predebridement measurements postoperative measurements anesthesia used an instrument used. This was performed with a 5 mm dermal curette. Topical anesthesia used. Hemostasis obtained with light compression. A 2x2 cm epi fix graft was applied to the superior left lower extremity ulceration, no waste. 4 billing units. Dressed with Adaptic and Steri-Strips. New ulceration dressed with hydrogel and DSD. Exp date 10/20/2021. Overlying compression dressing applied. Patient will continue twice weekly home health care dressing changes. She will ambulate as tolerated without assistance. Patient will continue daily elevation compression and exercise to manage edema improve wound healing outcome. And follow-up in 1 week. Wound is improving significantly at this time. (2) Venous insufficiency of both lower extremities: CODE(S): I87.2 - Venous insufficiency (chronic) (peripheral)
[2022-04-12 09:06] VITALS: BP 133/86; PULSE 81; RESP 16; TEMP 35.8
--- NOTE | 2022-04-12 09:35 | PN.PCM_ITS ---
History of Present Illness Date of Service: 04/12/22 Chief Complaint: Follow-up for 3 open areas on her left lower leg anterior perera History of Wound: 50-year-old female presents for follow-up on chronic ulceration to left anterior leg. Patient's right leg ulceration has healed at this time. Patient denies any fever chills nausea vomiting chest pain calf pain shortness of breath. Patient denies any changes since her previous visit has been compliant with treatment. Objective Data Objective Data Vital Signs: Vital Signs Temp Pulse Resp BP 96.5 F L 81 16 133/86 H 04/12/22 09:06 04/12/22 09:06 04/12/22 09:06 04/12/22 09:06 Oxygen Delivery Method Room Air Physical Exam Narrative Patient is alert oriented to person place and time. Patient is ambulatory ambulates without assistance. Vascular: Dorsalis pedis posterior tibial pulses diminished to bilateral lower extremity. Atrophic changes noted to skin such as thinning shiny and taut appearance. Diminished hair growth noted to bilateral lower extremity. Capillary fill time is less than 5 seconds to the digits bilaterally. Neurologic light touch protective sensation diminished to bilateral lower extremity Dermatologic: Thickness ulceration noted to the anterior leg, left medial leg wound healed. Pre and post debridement measurements were documented in nursing notes. These wounds demonstrate mixed fibrogranular base 50-50. Periwound skin appears devoid of any signs of infection, there was no deep probing at this time. New ulceration to medial left ankle along the course of great saphenous vein. This ulceration is small has no evidence of deep probing no signs of infection and demonstrates 100% granular base with minimal drainage. Musculoskeletal: No pain to calf squeeze bilateral lower extremity muscular strength full to bilateral lower extremity compartments. No gross deformity contributing to wound formation at this time Debridement Note Debridement Note Post-Debridement Measurements and Additional Note: Post-Debridement Measurements/Treatment NILO - Nurse 1 - General Ulcer Assessment Start: 03/22/22 09:05 Freq: Status: Active Protocol: PERRY Activity Type Activity Date Activity User E-Sign Co-Sign Detail Recorded Client Recorded Date Recorded By Document 03/22/22 09:05 [facility] [id number] 03/22/22 09:16 BMF Document 03/29/22 09:08 MW [id number] 03/29/22 09:18 MW Document 04/05/22 09:04 KR [id number] 04/05/22 09:05 KR Document 04/12/22 09:06 [facility] [id number] 04/12/22 09:12 BM 03/22/22 03/29/22 04/05/22 09:05 09:08 09:04 - Today's Visit Information Type of service Follow-up Visit Follow-up Visit Follow-up Visit (Physician/CAFE COOK (Physician/CAFE COOK (Physician/CAFE COOK ) ) ) Arrival Mode Ambulatory Ambulatory Ambulatory Transfer Assistance None None Accompanied by self Patient Identification Verified (Name & Yes Yes Yes ) Patient Requires Transmission-Based No No Precautions Safety Precautions NA Finger Stick Blood Sugar(mg/dl) (if 119 indicated): Blood Sugar Stated by Patient Vital Signs Temperature (97.8 F-99.1 F) 96.2 F L 96.2 F L 97.1 F L Temperature Source Temporal Temporal Temporal Pulse Rate (60-100) 96 81 69 Pulse Location Monitor Monitor Monitor Respiratory Rate (12-18) 16 16 Respiratory rate source Observation Observation Oxygen Delivery Method Room Air Room Air Blood Pressure (90/60-120/80) 110/72 117/71 157/88 H Blood Pressure Mean (mm Hg) 84 86 111 Source Monitor Monitor Monitor Position Sitting Sitting Sitting Blood Pressure Location Left Forearm Left Forearm Right Arm History Since Last Visit- (Skip if this is Patient's initial visit) Have you changed medications since your No No No last visit? Any new allergies or adverse reactions No No No Had a fall/change in ADL's that may No No No increase risk of falls Signs or symptoms of abuse and/or No No No neglect since last visit Have you been in the hospital since your No No No last visit? Has dressing in place as prescribed Yes Yes Yes Has compression in place as prescribed Yes Yes N/A Has offloadiing in place as prescribed N/A N/A N/A Experienced any changes in pain level or No No No management Left Footwear Regular Shoe Regular Shoe Regular Shoe Right Footwear Regular Shoe Regular Shoe Regular Shoe Pain Scale: 0-10 Numeric Is Patient Pain Free? Yes Yes Yes 04/12/22 09:06 - Today's Visit Information Type of service Follow-up Visit (Physician/CAFE COOK ) Arrival Mode Ambulatory Transfer Assistance None Accompanied by Patient Identification Verified (Name & Yes ) Patient Requires Transmission-Based No Precautions Safety Precautions Finger Stick Blood Sugar(mg/dl) (if indicated): Blood Sugar Vital Signs Temperature (97.8 F-99.1 F) 96.5 F L Temperature Source Temporal Pulse Rate (60-100) 81 Pulse Location Monitor Respiratory Rate (12-18) 16 Respiratory rate source Observation Oxygen Delivery Method Room Air Blood Pressure (90/60-120/80) 133/86 H Blood Pressure Mean (mm Hg) 101 Source Monitor Position Sitting Blood Pressure Location Left Forearm History Since Last Visit- (Skip if this is Patient's initial visit) Have you changed medications since your No last visit? Any new allergies or adverse reactions No Had a fall/change in ADL's that may No increase risk of falls Signs or symptoms of abuse and/or No neglect since last visit Have you been in the hospital since your No last visit? Has dressing in place as prescribed Yes Has compression in place as prescribed Yes Has offloadiing in place as prescribed N/A Experienced any changes in pain level or No management Left Footwear Regular Shoe Right Footwear Regular Shoe Pain Scale: 0-10 Numeric Is Patient Pain Free? Yes WC - Nurse 1 - General Ulcer Measurement Start: 03/22/22 09:05 Freq: Status: Active Protocol: Activity Type Activity Date Activity User E-Sign Co-Sign Detail Recorded Client Recorded Date Recorded By Document 03/22/22 09:05 [facility] [id number] 03/22/22 09:16 [facility] Document 03/29/22 09:08 MW [id number] 03/29/22 09:18 MW Document 04/05/22 09:04 KR [id number] 04/05/22 09:05 KR Document 04/12/22 09:06 [facility] [id number] 04/12/22 09:12 [facility] 03/22/22 03/29/22 04/05/22 09:05 09:08 09:04 Wound Center Nurse 1 #5 Left Medial Ankle -Combined with other wound No No -Current Size (cm) - Length 0.2 0.1 -Current Size (cm) - Width 0.3 0.1 -Current Size (cm) - Depth 0.1 0.1 -Total Square Cm 0.06 0.01 -Date of Last Picture (Recall this 03/22/22 field) -Photo Taken Yes No -Epithelialization Small 1-33% Large 67-100% -Tunneling No No -Undermining/Tunneling No No -Circular Undermining No No -Exudate Amt Small None Present -Exudate Type Serosanguineous -Wound Margin Distinct, Outline Attached -Granulation Amt Medium (34-66%) None Present (0 %) -Granulation Quality Red N/A -Slough/Fibrin Yes No -Necrosis Amt Medium (34-66%) None Present (0 %) -Necrotic Tissue Type Adherent Slough -Structure Exposed N/A -Texture (Verónica-wound Skin Appearance) Assessed, Assessed, Scarring Scarring -Moisture (Verónica-wound Skin Appearance) Assessed No Abnormality, Assessed -Color (Verónica-wound Skin Appearance) Assessed No Abnormality, Assessed -Temperature (Verónica-wound Skin No Abnormality Appearance) (Pt Warm) -Tenderness on Palpation (Verónica-wound No Skin Appearance) -Ulcer Cleansing Soap and Water Soap and Water -Foul Odor after Cleansing No No -Anesthetic Used 4% Lidocaine Solution #4 Left Perera -Combined with other wound No No -Current Size (cm) - Length 3.9 3.2 2.4 -Current Size (cm) - Width 1.3 1.0 1 -Current Size (cm) - Depth 0.2 0.1 0.1 -Total Square Cm 5.07 3.20 2.4 -Date of Last Picture (Recall this 03/22/22 03/29/22 field) -Photo Taken Yes Yes -Epithelialization Small 1-33% None Present -Tunneling No No -Undermining/Tunneling No No -Circular Undermining No No -Exudate Amt Medium Small Small -Exudate Type Serosanguineous Serosanguineous Serosanguineous -Wound Margin Distinct, Flat & Intact Distinct, Outline Outline Attached Attached -Granulation Amt Small (1-33%) Small (1-33%) Medium (34-66%) -Granulation Quality Red [place] -Slough/Fibrin Yes Yes -Necrosis Amt Large (67-100%) Large (67-100%) None Present (0 %) -Necrotic Tissue Type Adherent Slough Adherent Slough -Structure Exposed N/A -Texture (Verónica-wound Skin Appearance) Assessed, Assessed, Assessed, Scarring Localized Edema Scarring ,Scarring -Moisture (Verónica-wound Skin Appearance) Assessed Assessed,Dry/ No Abnormality, Scaly Assessed -Color (Verónica-wound Skin Appearance) Assessed, Assessed, No Abnormality, Hemosiderin Hemosiderin Assessed Staining Staining -Temperature (Verónica-wound Skin No Abnormality No Abnormality No Abnormality Appearance) (Pt Warm) (Pt Warm) (Pt Warm) -Tenderness on Palpation (Verónica-wound No No No Skin Appearance) -Ulcer Cleansing Soap and Water Soap and Water Soap and Water -Foul Odor after Cleansing No No No -Anesthetic Used 4% Lidocaine 4% Lidocaine 4% Lidocaine Solution Solution Solution,5% Lidocaine Gel Lower Limb Edema Present Yes Yes Point of Measurement (cm from the distal 50.0 point) Left Calf (cm) 49.4 Left Ankle (cm) 22.5 22.7 04/12/22 09:06 Wound Center Nurse 1 #5 Left Medial Ankle -Combined with other wound -Current Size (cm) - Length -Current Size (cm) - Width -Current Size (cm) - Depth -Total Square Cm -Date of Last Picture (Recall this field) -Photo Taken -Epithelialization -Tunneling -Undermining/Tunneling -Circular Undermining -Exudate Amt -Exudate Type -Wound Margin -Granulation Amt -Granulation Quality -Slough/Fibrin -Necrosis Amt -Necrotic Tissue Type -Structure Exposed -Texture (Verónica-wound Skin Appearance) -Moisture (Verónica-wound Skin Appearance) -Color (Verónica-wound Skin Appearance) -Temperature (Verónica-wound Skin Appearance) -Tenderness on Palpation (Verónica-wound Skin Appearance) -Ulcer Cleansing -Foul Odor after Cleansing -Anesthetic Used #4 Left Perera -Combined with other wound No -Current Size (cm) - Length 3.6 -Current Size (cm) - Width 0.7 -Current Size (cm) - Depth 0.1 -Total Square Cm 2.52 -Date of Last Picture (Recall this 04/12/22 field) -Photo Taken Yes -Epithelialization Small 1-33% -Tunneling No -Undermining/Tunneling No -Circular Undermining No -Exudate Amt Small -Exudate Type Serosanguineous -Wound Margin Distinct, Outline Attached -Granulation Amt Small (1-33%) -Granulation Quality Red -Slough/Fibrin Yes -Necrosis Amt Large (67-100%) -Necrotic Tissue Type Adherent Slough -Structure Exposed -Texture (Verónica-wound Skin Appearance) Assessed, Scarring -Moisture (Verónica-wound Skin Appearance) Assessed,Dry/ Scaly -Color (Verónica-wound Skin Appearance) Assessed, Hemosiderin Staining -Temperature (Verónica-wound Skin No Abnormality Appearance) (Pt Warm) -Tenderness on Palpation (Verónica-wound No Skin Appearance) -Ulcer Cleansing Soap and Water -Foul Odor after Cleansing No -Anesthetic Used 4% Lidocaine Solution Lower Limb Edema Present Yes Point of Measurement (cm from the distal point) Left Calf (cm) 49.7 Left Ankle (cm) 22.3 WC - Nurse 2 - General Ulcer CM Notes Start: 03/22/22 09:05 Freq: Status: Active Protocol: Activity Type Activity Date Activity User E-Sign Co-Sign Detail Recorded Client Recorded Date Recorded By Document 03/22/22 09:41 [id number] 03/22/22 09:43 Document 03/29/22 09:24 [id number] 03/29/22 09:32 Document 04/05/22 09:24 [id number] 04/05/22 09:30 Document 04/12/22 09:20 [id number] 04/12/22 09:27 03/22/22 03/29/22 04/05/22 09:41 09:24 09:24 Wound Center Nurse 2 #5 Left Medial Ankle -Time 09:42 -Correct Patient Yes No -Correct Side, Site, Position Yes No -Correct Procedure Yes No -Procedure Performed Yes No -Type of Procedure Debridement -Clinical Debridement Subcutaneous -Tissue Removed Subcutaneous -Post Debridement (cm) - Length 0.3 0 -Post Debridement (cm) - Width 0.3 0 -Post Debridement (cm) - Depth 0.1 0 -Total Square (Post) (cm) 0.09 0 -Area of Debridement (cm) - Length 0.3 0 -Area of Debridement (cm) - Width 0.3 0 -Total Square (Area) (cm) 0.09 0 -Tunneling No -Undermining/Tunneling No -Circular Undermining No -Wound/Ulcer Outcome Not Healed Healed- Epithelialized -Ulcer Cleansing Rinsed/ Irrigated with Saline -Foul Odor after Cleansing No -Bioengineered Tissue No -Bleeding Controlled with Pressure -Treatment Response Procedure Tolerated Well -Offloading No -Debridement - Subq, 1st 20sq cm Yes #4 Left Perera -Time 09:42 09:25 09:24 -Correct Patient Yes Yes Yes -Correct Side, Site, Position Yes Yes Yes -Correct Procedure Yes Yes Yes -Procedure Performed Yes Yes Yes -Type of Procedure Debridement Debridement Debridement -Clinical Debridement Subcutaneous Subcutaneous Subcutaneous -Tissue Removed Subcutaneous Subcutaneous Subcutaneous -Post Debridement (cm) - Length 4 4.0 3.5 -Post Debridement (cm) - Width 1.3 1.0 1.0 -Post Debridement (cm) - Depth 0.2 0.1 0.1 -Total Square (Post) (cm) 5.2 4.00 3.50 -Area of Debridement (cm) - Length 4.0 4.0 3.5 -Area of Debridement (cm) - Width 1.3 1.0 1.0 -Total Square (Area) (cm) 5.20 4.00 3.50 -Tunneling No No No -Undermining/Tunneling No No No -Circular Undermining No No No -Wound/Ulcer Outcome Not Healed Not Healed Not Healed -Ulcer Cleansing Rinsed/ Rinsed/ Rinsed/ Irrigated with Irrigated with Irrigated with Saline Saline Saline -Foul Odor after Cleansing No No No -Bioengineered Tissue Yes Yes Yes -Type of Bioengineered Tissue Epifix Mesh Epifix Mesh Epifix -Expiration Date 12/21/26 12/21/26 10/20/26 -Product Lot Number [id number] -Percent Used 100 100 100 -Lot number of Saline Used [id number] -Bleeding Controlled with Pressure Pressure Pressure -Treatment Response Procedure Procedure Procedure Tolerated Well Tolerated Well Tolerated Well -Offloading No No No -Debridement - Subq, 1st 20sq cm No No No -Apply Skin Sub - 1st 25 sq cm - Legs 1 1 1 -Epifix (per sq cm) 4 -Epifix 18mm Disc -Epifix Mesh (per sq cm) 11 11 Pain Scale: 0-10 Numeric Is Patient Pain Free? Yes Yes Yes 04/12/22 09:20 Wound Center Nurse 2 #5 Left Medial Ankle -Time -Correct Patient -Correct Side, Site, Position -Correct Procedure -Procedure Performed -Type of Procedure -Clinical Debridement -Tissue Removed -Post Debridement (cm) - Length -Post Debridement (cm) - Width -Post Debridement (cm) - Depth -Total Square (Post) (cm) -Area of Debridement (cm) - Length -Area of Debridement (cm) - Width -Total Square (Area) (cm) -Tunneling -Undermining/Tunneling -Circular Undermining -Wound/Ulcer Outcome -Ulcer Cleansing -Foul Odor after Cleansing -Bioengineered Tissue -Bleeding Controlled with -Treatment Response -Offloading -Debridement - Subq, 1st 20sq cm #4 Left Perera -Time 09:25 -Correct Patient Yes -Correct Side, Site, Position Yes -Correct Procedure Yes -Procedure Performed Yes -Type of Procedure Debridement -Clinical Debridement Subcutaneous -Tissue Removed Subcutaneous -Post Debridement (cm) - Length 3.6 -Post Debridement (cm) - Width 0.8 -Post Debridement (cm) - Depth 0.1 -Total Square (Post) (cm) 2.88 -Area of Debridement (cm) - Length 3.6 -Area of Debridement (cm) - Width 0.8 -Total Square (Area) (cm) 2.88 -Tunneling No -Undermining/Tunneling No -Circular Undermining No -Wound/Ulcer Outcome Not Healed -Ulcer Cleansing Rinsed/ Irrigated with Saline -Foul Odor after Cleansing No -Bioengineered Tissue Yes -Type of Bioengineered Tissue Epifix 18mm Disc -Expiration Date 01/18/27 -Product Lot Number [id number] -Percent Used 100 -Lot number of Saline Used [id number] -Bleeding Controlled with Pressure -Treatment Response Procedure Tolerated Well -Offloading No -Debridement - Subq, 1st 20sq cm No -Apply Skin Sub - 1st 25 sq cm - Legs 1 -Epifix (per sq cm) -Epifix 18mm Disc 3 -Epifix Mesh (per sq cm) Pain Scale: 0-10 Numeric Is Patient Pain Free? Yes WC - Nurse 3 - General Ulcer D/C NN Start: 03/22/22 09:05 Freq: Status: Active Protocol: Activity Type Activity Date Activity User E-Sign Co-Sign Detail Recorded Client Recorded Date Recorded By Document 03/22/22 09:45 [facility] [id number] 03/22/22 09:47 BM Document 03/29/22 09:36 BMF [id number] 03/29/22 09:37 BM Document 04/05/22 09:35 KR [id number] 04/05/22 09:35 KR Document 04/12/22 09:32 [facility] [id number] 04/12/22 09:33 [facility] 03/22/22 03/29/22 04/05/22 09:45 09:36 09:35 Wound Care Nurse 3 #5 Left Medial Ankle -Ulcer Cleansing Rinsed/ Irrigated with Saline -Foul Odor after Cleansing No -Primary Dressing Applied Other -Other Dressing hydrogel -Primary Dressing Covered/Secured with Dry Gauze & Roll Gauze, Secured with Tape -Other Covering drsg per mw rn #4 Left Perera -Ulcer Cleansing Rinsed/ Irrigated with Saline -Other Dressing epifix EPIFIX -Primary Dressing Covered/Secured with Dry Gauze & Dry Gauze & Dry Gauze,Dry Roll Gauze, Roll Gauze, Gauze & Roll Secured with Secured with Gauze Tape Tape -Other Covering abd; drsg per DRSG PER DL mw rn LLPN Left -Compression Wrap Silvestre Wrap Silvestre Wrap Silvestre Wrap Treatment Response Procedure Tolerated Well Pain Scale: 0-10 Numeric Is Patient Pain Free? Yes Yes Yes WC - Visit Discharge Discharge Condition Stable Stable Stable Ambulatory Status Ambulatory,Cane Ambulatory Ambulatory Transportation Private Auto Private Auto Private Auto 04/12/22 09:32 Wound Care Nurse 3 #5 Left Medial Ankle -Ulcer Cleansing -Foul Odor after Cleansing -Primary Dressing Applied -Other Dressing -Primary Dressing Covered/Secured with -Other Covering #4 Left Perera -Ulcer Cleansing -Other Dressing epifix -Primary Dressing Covered/Secured with Dry Gauze & Roll Gauze, Secured with Tape,Other -Other Covering abd Left -Compression Wrap Silvestre Wrap Treatment Response Procedure Tolerated Well Pain Scale: 0-10 Numeric Is Patient Pain Free? Yes WC - Visit Discharge Discharge Condition Stable Ambulatory Status Ambulatory Transportation Private Auto Assessment/Plan Assessment/Plan (1) Non-pressure chronic ulcer of left calf with fat layer exposed: CODE(S): L97.222 - Non-pressure chronic ulcer of left calf with fat layer exposed PLAN: Patient examined and evaluated, all findings discussed with patient in detail. Wound significantly improving every week. Patient will continue Glucerna supplementation. Wounds x1 was excisionally debrided down to including level of subcutaneous tissue, this is documented in the nursing notes predebridement measurements postoperative measurements anesthesia used an instrument used. This was performed with a 5 mm dermal curette. Topical anesthesia used. Hemostasis obtained with light compression. A 18 mm epi fix graft was applied to the superior left lower extremity ulceration, no waste. 3 billing units. Dressed with Adaptic and Steri-Strips. New ulceration dressed with hydrogel and DSD. Exp date 01/18/2027. Overlying compression dressing applied. Patient will continue twice weekly home health care dressing changes. She will ambulate as tolerated without assistance. Patient will continue daily elevation compression and exercise to manage edema improve wound healing outcome. And follow-up in 1 week. Wound is improving significantly at this time. (2) Venous insufficiency of both lower extremities: CODE(S): I87.2 - Venous insufficiency (chronic) (peripheral)
[2022-04-19 09:03] VITALS: BP 120/74; PULSE 93; RESP 18; TEMP 35.2
--- NOTE | 2022-04-19 09:22 | PCM.WC.PN ---
History of Present Illness Date of Service: 04/19/22 Chief Complaint: Follow-up for 3 open areas on her left lower leg anterior perera History of Wound: 50-year-old female presents for follow-up on chronic ulceration to left anterior leg. Patient's right leg ulceration has healed at this time. Patient denies any fever chills nausea vomiting chest pain calf pain shortness of breath. Patient denies any changes since her previous visit has been compliant with treatment. Objective Data Objective Data Vital Signs: Vital Signs Temp Pulse Resp BP 95.3 F L 93 18 120/74 04/19/22 09:03 04/19/22 09:03 04/19/22 09:03 04/19/22 09:03 Oxygen Delivery Method Room Air Physical Exam Narrative Patient is alert oriented to person place and time. Patient is ambulatory ambulates without assistance. Vascular: Dorsalis pedis posterior tibial pulses diminished to bilateral lower extremity. Atrophic changes noted to skin such as thinning shiny and taut appearance. Diminished hair growth noted to bilateral lower extremity. Capillary fill time is less than 5 seconds to the digits bilaterally. Neurologic light touch protective sensation diminished to bilateral lower extremity Dermatologic: Thickness ulceration noted to the anterior leg, left medial leg wound healed. Pre and post debridement measurements were documented in nursing notes. These wounds demonstrate mixed fibrogranular base 50-50. Periwound skin appears devoid of any signs of infection, there was no deep probing at this time. New ulceration to medial left ankle along the course of great saphenous vein. This ulceration is small has no evidence of deep probing no signs of infection and demonstrates 100% granular base with minimal drainage. Musculoskeletal: No pain to calf squeeze bilateral lower extremity muscular strength full to bilateral lower extremity compartments. No gross deformity contributing to wound formation at this time Debridement Note Debridement Note Post-Debridement Measurements and Additional Note: Post-Debridement Measurements/Treatment NILO - Nurse 1 - General Ulcer Assessment Start: 03/22/22 09:05 Freq: Status: Active Protocol: PERRY Activity Type Activity Date Activity User E-Sign Co-Sign Detail Recorded Client Recorded Date Recorded By Document 03/22/22 09:05 [facility] [id number] 03/22/22 09:16 BMF Document 03/29/22 09:08 MW [id number] 03/29/22 09:18 MW Document 04/05/22 09:04 KR [id number] 04/05/22 09:05 KR Document 04/12/22 09:06 BM [id number] 04/12/22 09:12 BM Document 04/19/22 09:03 MW [id number] 04/19/22 09:07 MW 03/22/22 03/29/22 04/05/22 09:05 09:08 09:04 - Today's Visit Information Type of service Follow-up Visit Follow-up Visit Follow-up Visit (Physician/LABEL 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 (Physician/LABEL 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 (Physician/LABEL 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 ) ) ) Arrival Mode Ambulatory Ambulatory Ambulatory Transfer Assistance None None Accompanied by self Patient Identification Verified (Name & Yes Yes Yes ) Patient Requires Transmission-Based No No Precautions Safety Precautions NA Finger Stick Blood Sugar(mg/dl) (if 119 indicated): Blood Sugar Stated by Patient Vital Signs Temperature (97.8 F-99.1 F) 96.2 F L 96.2 F L 97.1 F L Temperature Source Temporal Temporal Temporal Pulse Rate (60-100) 96 81 69 Pulse Location Monitor Monitor Monitor Respiratory Rate (12-18) 16 16 Respiratory rate source Observation Observation Oxygen Delivery Method Room Air Room Air Blood Pressure (90/60-120/80) 110/72 117/71 157/88 H Blood Pressure Mean (mm Hg) 84 86 111 Source Monitor Monitor Monitor Position Sitting Sitting Sitting Blood Pressure Location Left Forearm Left Forearm Right Arm History Since Last Visit- (Skip if this is Patient's initial visit) Have you changed medications since your No No No last visit? Any new allergies or adverse reactions No No No Had a fall/change in ADL's that may No No No increase risk of falls Signs or symptoms of abuse and/or No No No neglect since last visit Have you been in the hospital since your No No No last visit? Has dressing in place as prescribed Yes Yes Yes Has compression in place as prescribed Yes Yes N/A Has offloadiing in place as prescribed N/A N/A N/A Experienced any changes in pain level or No No No management Left Footwear Regular Shoe Regular Shoe Regular Shoe Right Footwear Regular Shoe Regular Shoe Regular Shoe Pain Scale: 0-10 Numeric Is Patient Pain Free? Yes Yes Yes 04/12/22 04/19/22 09:06 09:03 - Today's Visit Information Type of service Follow-up Visit Follow-up Visit (Physician/LABEL 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 (Physician/LABEL 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 ) ) Arrival Mode Ambulatory Ambulatory Transfer Assistance None None Accompanied by self Patient Identification Verified (Name & Yes Yes ) Patient Requires Transmission-Based No No Precautions Safety Precautions NA Finger Stick Blood Sugar(mg/dl) (if indicated): Blood Sugar Vital Signs Temperature (97.8 F-99.1 F) 96.5 F L 95.3 F L Temperature Source Temporal Temporal Pulse Rate (60-100) 81 93 Pulse Location Monitor Monitor Respiratory Rate (12-18) 16 18 Respiratory rate source Observation Observation Oxygen Delivery Method Room Air Room Air Blood Pressure (90/60-120/80) 133/86 H 120/74 Blood Pressure Mean (mm Hg) 101 89 Source Monitor Monitor Position Sitting Sitting Blood Pressure Location Left Forearm Left Arm History Since Last Visit- (Skip if this is Patient's initial visit) Have you changed medications since your No No last visit? Any new allergies or adverse reactions No No Had a fall/change in ADL's that may No No increase risk of falls Signs or symptoms of abuse and/or No No neglect since last visit Have you been in the hospital since your No No last visit? Has dressing in place as prescribed Yes Yes Has compression in place as prescribed Yes Yes Has offloadiing in place as prescribed N/A N/A Experienced any changes in pain level or No No management Left Footwear Regular Shoe Regular Shoe Right Footwear Regular Shoe Regular Shoe Pain Scale: 0-10 Numeric Is Patient Pain Free? Yes No - Nurse 1 - General Ulcer Measurement Start: 03/22/22 09:05 Freq: Status: Active Protocol: Activity Type Activity Date Activity User E-Sign Co-Sign Detail Recorded Client Recorded Date Recorded By Document 03/22/22 09:05 [facility] [id number] 03/22/22 09:16 [facility] Document 03/29/22 09:08 MW [id number] 03/29/22 09:18 MW Document 04/05/22 09:04 KR [id number] 04/05/22 09:05 KR Document 04/12/22 09:06 [facility] [id number] 04/12/22 09:12 [facility] Document 04/19/22 09:03 MW [id number] 04/19/22 09:07 MW 03/22/22 03/29/22 04/05/22 09:05 09:08 09:04 Wound Center Nurse 1 #5 Left Medial Ankle -Combined with other wound No No -Current Size (cm) - Length 0.2 0.1 -Current Size (cm) - Width 0.3 0.1 -Current Size (cm) - Depth 0.1 0.1 -Total Square Cm 0.06 0.01 -Date of Last Picture (Recall this 03/22/22 field) -Photo Taken Yes No -Epithelialization Small 1-33% Large 67-100% -Tunneling No No -Undermining/Tunneling No No -Circular Undermining No No -Exudate Amt Small None Present -Exudate Type Serosanguineous -Wound Margin Distinct, Outline Attached -Granulation Amt Medium (34-66%) None Present (0 %) -Granulation Quality Red N/A -Slough/Fibrin Yes No -Necrosis Amt Medium (34-66%) None Present (0 %) -Necrotic Tissue Type Adherent Slough -Structure Exposed N/A -Texture (Verónica-wound Skin Appearance) Assessed, Assessed, Scarring Scarring -Moisture (Verónica-wound Skin Appearance) Assessed No Abnormality, Assessed -Color (Verónica-wound Skin Appearance) Assessed No Abnormality, Assessed -Temperature (Verónica-wound Skin No Abnormality Appearance) (Pt Warm) -Tenderness on Palpation (Verónica-wound No Skin Appearance) -Ulcer Cleansing Soap and Water Soap and Water -Foul Odor after Cleansing No No -Anesthetic Used 4% Lidocaine Solution #4 Left Perera -Combined with other wound No No -Current Size (cm) - Length 3.9 3.2 2.4 -Current Size (cm) - Width 1.3 1.0 1 -Current Size (cm) - Depth 0.2 0.1 0.1 -Total Square Cm 5.07 3.20 2.4 -Date of Last Picture (Recall this 03/22/22 03/29/22 field) -Photo Taken Yes Yes -Epithelialization Small 1-33% None Present -Tunneling No No -Undermining/Tunneling No No -Circular Undermining No No -Exudate Amt Medium Small Small -Exudate Type Serosanguineous Serosanguineous Serosanguineous -Wound Margin Distinct, Flat & Intact Distinct, Outline Outline Attached Attached -Granulation Amt Small (1-33%) Small (1-33%) Medium (34-66%) -Granulation Quality Red Media Media -Slough/Fibrin Yes Yes -Necrosis Amt Large (67-100%) Large (67-100%) None Present (0 %) -Necrotic Tissue Type Adherent Slough Adherent Slough -Structure Exposed N/A -Texture (Verónica-wound Skin Appearance) Assessed, Assessed, Assessed, Scarring Localized Edema Scarring ,Scarring -Moisture (Verónica-wound Skin Appearance) Assessed Assessed,Dry/ No Abnormality, Scaly Assessed -Color (Verónica-wound Skin Appearance) Assessed, Assessed, No Abnormality, Hemosiderin Hemosiderin Assessed Staining Staining -Temperature (Verónica-wound Skin No Abnormality No Abnormality No Abnormality Appearance) (Pt Warm) (Pt Warm) (Pt Warm) -Tenderness on Palpation (Ve[place]rnica-wound No No No Skin Appearance) -Ulcer Cleansing Soap and Water Soap and Water Soap and Water -Foul Odor after Cleansing No No No -Anesthetic Used 4% Lidocaine 4% Lidocaine 4% Lidocaine Solution Solution Solution,5% Lidocaine Gel Lower Limb Edema Present Yes Yes Point of Measurement (cm from the distal 50.0 point) Left Calf (cm) 49.4 Left Ankle (cm) 22.5 22.7 04/12/22 04/19/22 09:06 09:03 Wound Center Nurse 1 #5 Left Medial Ankle -Combined with other wound -Current Size (cm) - Length -Current Size (cm) - Width -Current Size (cm) - Depth -Total Square Cm -Date of Last Picture (Recall this field) -Photo Taken -Epithelialization -Tunneling -Undermining/Tunneling -Circular Undermining -Exudate Amt -Exudate Type -Wound Margin -Granulation Amt -Granulation Quality -Slough/Fibrin -Necrosis Amt -Necrotic Tissue Type -Structure Exposed -Texture (Verónica-wound Skin Appearance) -Moisture (Verónica-wound Skin Appearance) -Color (Verónica-wound Skin Appearance) -Temperature (Verónica-wound Skin Appearance) -Tenderness on Palpation (Verónica-wound Skin Appearance) -Ulcer Cleansing -Foul Odor after Cleansing -Anesthetic Used #4 Left Perera -Combined with other wound No No -Current Size (cm) - Length 3.6 2.9 -Current Size (cm) - Width 0.7 0.5 -Current Size (cm) - Depth 0.1 0.1 -Total Square Cm 2.52 1.45 -Date of Last Picture (Recall this 04/12/22 04/19/22 field) -Photo Taken Yes Yes -Epithelialization Small 1-33% Small 1-33% -Tunneling No No -Undermining/Tunneling No No -Circular Undermining No No -Exudate Amt Small Small -Exudate Type Serosanguineous Serosanguineous -Wound Margin Distinct, Flat & Intact Outline Attached -Granulation Amt Small (1-33%) None Present (0 %) -Granulation Quality Red N/A -Slough/Fibrin Yes Yes -Necrosis Amt Large (67-100%) Large (67-100%) -Necrotic Tissue Type Adherent Slough Adherent Slough -Structure Exposed N/A -Texture (Verónica-wound Skin Appearance) Assessed, Assessed, Scarring Localized Edema ,Scarring -Moisture (Verónica-wound Skin Appearance) Assessed,Dry/ Assessed,Dry/ Scaly Scaly -Color (Verónica-wound Skin Appearance) Assessed, Assessed, Hemosiderin Hemosiderin Staining Staining -Temperature (Verónica-wound Skin No Abnormality No Abnormality Appearance) (Pt Warm) (Pt Warm) -Tenderness on Palpation (Verónica-wound No No Skin Appearance) -Ulcer Cleansing Soap and Water Soap and Water -Foul Odor after Cleansing No No -Anesthetic Used 4% Lidocaine 4% Lidocaine Solution Solution Lower Limb Edema Present Yes Yes Point of Measurement (cm from the distal point) Left Calf (cm) 49.7 49.0 Left Ankle (cm) 22.3 22.6 WC - Nurse 2 - General Ulcer CM Notes Start: 03/22/22 09:05 Freq: Status: Active Protocol: Activity Type Activity Date Activity User E-Sign Co-Sign Detail Recorded Client Recorded Date Recorded By Document 03/22/22 09:41 CARLOS [id number] 03/22/22 09:43 CARLOS Document 03/29/22 09:24 CARLOS [id number] 03/29/22 09:32 CARLOS Document 04/05/22 09:24 CARLOS [id number] 04/05/22 09:30 CARLOS Document 04/12/22 09:20 CARLOS [id number] 04/12/22 09:27 JF Document 04/19/22 09:15 [id number] 04/19/22 09:22 JF 03/22/22 03/29/22 04/05/22 09:41 09:24 09:24 Wound Center Nurse 2 #5 Left Medial Ankle -Time 09:42 -Correct Patient Yes No -Correct Side, Site, Position Yes No -Correct Procedure Yes No -Procedure Performed Yes No -Type of Procedure Debridement -Clinical Debridement Subcutaneous -Tissue Removed Subcutaneous -Post Debridement (cm) - Length 0.3 0 -Post Debridement (cm) - Width 0.3 0 -Post Debridement (cm) - Depth 0.1 0 -Total Square (Post) (cm) 0.09 0 -Area of Debridement (cm) - Length 0.3 0 -Area of Debridement (cm) - Width 0.3 0 -Total Square (Area) (cm) 0.09 0 -Tunneling No -Undermining/Tunneling No -Circular Undermining No -Wound/Ulcer Outcome Not Healed Healed- Epithelialized -Ulcer Cleansing Rinsed/ Irrigated with Saline -Foul Odor after Cleansing No -Bioengineered Tissue No -Bleeding Controlled with Pressure -Treatment Response Procedure Tolerated Well -Offloading No -Debridement - Subq, 1st 20sq cm Yes #4 Left Perera -Time 09:42 09:25 09:24 -Correct Patient Yes Yes Yes -Correct Side, Site, Position Yes Yes Yes -Correct Procedure Yes Yes Yes -Procedure Performed Yes Yes Yes -Type of Procedure Debridement Debridement Debridement -Clinical Debridement Subcutaneous Subcutaneous Subcutaneous -Tissue Removed Subcutaneous Subcutaneous Subcutaneous -Post Debridement (cm) - Length 4 4.0 3.5 -Post Debridement (cm) - Width 1.3 1.0 1.0 -Post Debridement (cm) - Depth 0.2 0.1 0.1 -Total Square (Post) (cm) 5.2 4.00 3.50 -Area of Debridement (cm) - Length 4.0 4.0 3.5 -Area of Debridement (cm) - Width 1.3 1.0 1.0 -Total Square (Area) (cm) 5.20 4.00 3.50 -Tunneling No No No -Undermining/Tunneling No No No -Circular Undermining No No No -Wound/Ulcer Outcome Not Healed Not Healed Not Healed -Ulcer Cleansing Rinsed/ Rinsed/ Rinsed/ Irrigated with Irrigated with Irrigated with Saline Saline Saline -Foul Odor after Cleansing No No No -Bioengineered Tissue Yes Yes Yes -Type of Bioengineered Tissue Epifix Mesh Epifix Mesh Epifix -Expiration Date 12/21/26 12/21/26 10/20/26 -Product Lot Number [id number] -Percent Used 100 100 100 -Lot number of Saline Used [id number] -Bleeding Controlled with Pressure Pressure Pressure -Treatment Response Procedure Procedure Procedure Tolerated Well Tolerated Well Tolerated Well -Offloading No No No -Debridement - Subq, 1st 20sq cm No No No -Apply Skin Sub - 1st 25 sq cm - Legs 1 1 1 -Epifix (per sq cm) 4 -Epifix 18mm Disc -Epifix Mesh (per sq cm) 11 11 Pain Scale: 0-10 Numeric Is Patient Pain Free? Yes Yes Yes 04/12/22 04/19/22 09:20 09:15 Wound Center Nurse 2 #5 Left Medial Ankle -Time -Correct Patient -Correct Side, Site, Position -Correct Procedure -Procedure Performed -Type of Procedure -Clinical Debridement -Tissue Removed -Post Debridement (cm) - Length -Post Debridement (cm) - Width -Post Debridement (cm) - Depth -Total Square (Post) (cm) -Area of Debridement (cm) - Length -Area of Debridement (cm) - Width -Total Square (Area) (cm) -Tunneling -Undermining/Tunneling -Circular Undermining -Wound/Ulcer Outcome -Ulcer Cleansing -Foul Odor after Cleansing -Bioengineered Tissue -Bleeding Controlled with -Treatment Response -Offloading -Debridement - Subq, 1st 20sq cm #4 Left Perera -Time 09:25 09:20 -Correct Patient Yes Yes -Correct Side, Site, Position Yes Yes -Correct Procedure Yes Yes -Procedure Performed Yes Yes -Type of Procedure Debridement Debridement -Clinical Debridement Subcutaneous Subcutaneous -Tissue Removed Subcutaneous Subcutaneous -Post Debridement (cm) - Length 3.6 2.7 -Post Debridement (cm) - Width 0.8 0.4 -Post Debridement (cm) - Depth 0.1 0.1 -Total Square (Post) (cm) 2.88 1.08 -Area of Debridement (cm) - Length 3.6 2.7 -Area of Debridement (cm) - Width 0.8 0.4 -Total Square (Area) (cm) 2.88 1.08 -Tunneling No No -Undermining/Tunneling No No -Circular Undermining No No -Wound/Ulcer Outcome Not Healed Not Healed -Ulcer Cleansing Rinsed/ Rinsed/ Irrigated with Irrigated with Saline Saline -Foul Odor after Cleansing No No -Bioengineered Tissue Yes Yes -Type of Bioengineered Tissue Epifix 18mm Epifix 18mm Disc Disc -Expiration Date 01/18/27 11/20/26 -Product Lot Number [id number] -Percent Used 100 100 -Lot number of Saline Used [id number] -Bleeding Controlled with Pressure Pressure -Treatment Response Procedure Procedure Tolerated Well Tolerated Well -Offloading No No -Debridement - Subq, 1st 20sq cm No No -Apply Skin Sub - 1st 25 sq cm - Legs 1 1 -Epifix (per sq cm) -Epifix 18mm Disc 3 3 -Epifix Mesh (per sq cm) Pain Scale: 0-10 Numeric Is Patient Pain Free? Yes Yes WC - Nurse 3 - General Ulcer D/C NN Start: 03/22/22 09:05 Freq: Status: Active Protocol: Activity Type Activity Date Activity User E-Sign Co-Sign Detail Recorded Client Recorded Date Recorded By Document 03/22/22 09:45 [facility] [id number] 03/22/22 09:47 [facility] Document 03/29/22 09:36 [facility] [id number] 03/29/22 09:37 [facility] Document 04/05/22 09:35 KR [id number] 04/05/22 09:35 KR Document 04/12/22 09:32 [facility] [id number] 04/12/22 09:33 [facility] 03/22/22 03/29/22 04/05/22 09:45 09:36 09:35 Wound Care Nurse 3 #5 Left Medial Ankle -Ulcer Cleansing Rinsed/ Irrigated with Saline -Foul Odor after Cleansing No -Primary Dressing Applied Other -Other Dressing hydrogel -Primary Dressing Covered/Secured with Dry Gauze & Roll Gauze, Secured with Tape -Other Covering drsg per mw rn #4 Left Perera -Ulcer Cleansing Rinsed/ Irrigated with Saline -Other Dressing epifix EPIFIX -Primary Dressing Covered/Secured with Dry Gauze & Dry Gauze & Dry Gauze,Dry Roll Gauze, Roll Gauze, Gauze & Roll Secured with Secured with Gauze Tape Tape -Other Covering abd; drsg per DRSG PER DL mw rn LLPN Left -Compression Wrap Silvestre Wrap Silvestre Wrap Silvestre Wrap Treatment Response Procedure Tolerated Well Pain Scale: 0-10 Numeric Is Patient Pain Free? Yes Yes Yes WC - Visit Discharge Discharge Condition Stable Stable Stable Ambulatory Status Ambulatory,Cane Ambulatory Ambulatory Transportation [employer] 04/12/22 09:32 Wound Care Nurse 3 #5 Left Medial Ankle -Ulcer Cleansing -Foul Odor after Cleansing -Primary Dressing Applied -Other Dressing -Primary Dressing Covered/Secured with -Other Covering #4 Left Perera -Ulcer Cleansing -Other Dressing epifix -Primary Dressing Covered/Secured with Dry Gauze & Roll Gauze, Secured with Tape,Other -Other Covering abd Left -Compression Wrap Silvestre Wrap Treatment Response Procedure Tolerated Well Pain Scale: 0-10 Numeric Is Patient Pain Free? Yes WC - Visit Discharge Discharge Condition Stable Ambulatory Status Ambulatory Transportation Private Auto Assessment/Plan Assessment/Plan (1) Non-pressure chronic ulcer of left calf with fat layer exposed: CODE(S): L97.222 - Non-pressure chronic ulcer of left calf with fat layer exposed PLAN: Patient examined and evaluated, all findings discussed with patient in detail. Wound significantly improving every week. Patient will continue Glucerna supplementation. Wounds x1 was excisionally debrided down to including level of subcutaneous tissue, this is documented in the nursing notes predebridement measurements postoperative measurements anesthesia used an instrument used. This was performed with a 5 mm dermal curette. Topical anesthesia used. Hemostasis obtained with light compression. A 18 mm epi fix graft was applied to the superior left lower extremity ulceration, no waste. 3 billing units. Dressed with Adaptic and Steri-Strips. New ulceration dressed with hydrogel and DSD. Exp date 01/18/2027. Overlying compression dressing applied. Patient will continue twice weekly home health care dressing changes. She will ambulate as tolerated without assistance. Patient will continue daily elevation compression and exercise to manage edema improve wound healing outcome. And follow-up in 1 week. Wound is improving significantly at this time. (2) Venous insufficiency of both lower extremities: CODE(S): I87.2 - Venous insufficiency (chronic) (peripheral)
== END 2022-04-19 23:59 | disposition home or self-care (01) ==
LOC: WC 09:00
PROVIDERS: PCP Internal Medicine; Referring Provider Podiatrist; Visit Provider Podiatrist
DX: L97.222 Non-pressure chronic ulcer of left calf with fat layer exposed (principal); L97.329 Non-pressure chronic ulcer of left ankle with unspecified severity; L97.109 Non-pressure chronic ulcer of unspecified thigh with unspecified severity; I87.2 Venous insufficiency (chronic) (peripheral)
CPT/HCPCS: 11042; 15271; Q4186

== ENCOUNTER 2022-05-03 09:00 | Outpatient (RCR) | payer MEDICAID, SELFPAY ==
[2022-04-20 00:56] VITALS: BP 120/74; PULSE 93; RESP 18; TEMP 35.2
[2022-04-26 09:25] VITALS: BP 100/60; PULSE 78; RESP 18; TEMP 35.6
--- NOTE | 2022-04-26 10:06 | PN.PCM_ITS ---
History of Present Illness Date of Service: 04/26/22 Chief Complaint: Follow-up for 3 open areas on her left lower leg anterior perera History of Wound: 50-year-old female presents for follow-up on chronic ulceration to left anterior leg. Patient's right leg ulceration has healed at this time. Patient denies any fever chills nausea vomiting chest pain calf pain shortness of breath. Patient denies any changes since her previous visit has been compliant with treatment. Objective Data Objective Data Vital Signs: Vital Signs Temp Pulse Resp BP 96.1 F L 78 18 100/60 04/26/22 09:25 04/26/22 09:25 04/26/22 09:25 04/26/22 09:25 Oxygen Delivery Method Room Air Physical Exam Narrative Patient is alert oriented to person place and time. Patient is ambulatory ambulates without assistance. Vascular: Dorsalis pedis posterior tibial pulses diminished to bilateral lower extremity. Atrophic changes noted to skin such as thinning shiny and taut appearance. Diminished hair growth noted to bilateral lower extremity. Capillary fill time is less than 5 seconds to the digits bilaterally. Neurologic light touch protective sensation diminished to bilateral lower extremity Dermatologic: Thickness ulceration noted to the anterior leg, left medial leg wound healed. Pre and post debridement measurements were documented in nursing notes. These wounds demonstrate mixed fibrogranular base 50-50. Periwound skin appears devoid of any signs of infection, there was no deep probing at this time. New ulceration to medial left ankle along the course of great saphenous vein. This ulceration is small has no evidence of deep probing no signs of infection and demonstrates 100% granular base with minimal drainage. Musculoskeletal: No pain to calf squeeze bilateral lower extremity muscular strength full to bilateral lower extremity compartments. No gross deformity contributing to wound formation at this time Debridement Note Debridement Note Post-Debridement Measurements and Additional Note: Post-Debridement Measurements/Treatment NILO - Nurse 1 - General Ulcer Assessment Start: 04/26/22 09:25 Freq: Status: Active Protocol: PERRY Activity Type Activity Date Activity User E-Sign Co-Sign Detail Recorded Client Recorded Date Recorded By Document 04/26/22 09:25 CHANEL [id number] 04/26/22 09:34 MW 04/26/22 09:25 NILO - Today's Visit Information Type of service Initial Visit Arrival Mode Ambulatory Transfer Assistance None Accompanied by self Patient Identification Verified (Name & Yes ) Patient Requires Transmission-Based No Precautions Safety Precautions NA Vital Signs Temperature (97.8 F-99.1 F) 96.1 F L Temperature Source Temporal Pulse Rate (60-100) 78 Pulse Location Monitor Respiratory Rate (12-18) 18 Respiratory rate source Observation Oxygen Delivery Method Room Air Blood Pressure (90/60-120/80) 100/60 Blood Pressure Mean (mm Hg) 73 Source Monitor Position Sitting Blood Pressure Location Left Forearm History Since Last Visit- (Skip if this is Patient's initial visit) Have you changed medications since your No last visit? Any new allergies or adverse reactions No Had a fall/change in ADL's that may No increase risk of falls Signs or symptoms of abuse and/or No neglect since last visit Have you been in the hospital since your No last visit? Has dressing in place as prescribed Yes Has compression in place as prescribed Yes Has offloadiing in place as prescribed N/A Experienced any changes in pain level or No management Left Footwear Regular Shoe Right Footwear Regular Shoe Pain Scale: 0-10 Numeric Is Patient Pain Free? Yes WC - Nurse 1 - General Ulcer Measurement Start: 04/26/22 09:25 Freq: Status: Active Protocol: Activity Type Activity Date Activity User E-Sign Co-Sign Detail Recorded Client Recorded Date Recorded By Document 04/26/22 09:25 MW [id number] 04/26/22 09:34 MW 04/26/22 09:25 Wound Center Nurse 1 #4 Left Perera -Combined with other wound No -Current Size (cm) - Length 2.5 -Current Size (cm) - Width 0.8 -Current Size (cm) - Depth 0.1 -Total Square Cm 2.00 -Date of Last Picture (Recall this 04/26/22 field) -Photo Taken Yes -Epithelialization None Present -Tunneling No -Undermining/Tunneling No -Circular Undermining No -Exudate Amt None Present -Wound Margin Flat & Intact -Granulation Amt None Present (0 %) -Granulation Quality N/A -Slough/Fibrin Yes -Necrosis Amt None Present (0 %) -Necrotic Tissue Type Adherent Slough -Structure Exposed N/A -Texture (Verónica-wound Skin Appearance) Assessed, Localized Edema ,Scarring -Moisture (Verónica-wound Skin Appearance) Assessed,Dry/ Scaly -Color (Verónica-wound Skin Appearance) Assessed, Hemosiderin Staining -Temperature (Verónica-wound Skin No Abnormality Appearance) (Pt Warm) -Tenderness on Palpation (Verónica-wound No Skin Appearance) -Ulcer Cleansing Soap and Water -Foul Odor after Cleansing No -Anesthetic Used 4% Lidocaine Solution Lower Limb Edema Present Yes Left Calf (cm) 43.5 Left Ankle (cm) 23.2 WC - Nurse 2 - General Ulcer CM Notes Start: 04/26/22 09:25 Freq: Status: Active Protocol: Activity Type Activity Date Activity User E-Sign Co-Sign Detail Recorded Client Recorded Date Recorded By Document 04/26/22 09:48 CARLOS [id number] 04/26/22 09:50 CARLOS 04/26/22 09:48 Wound Center Nurse 2 #4 Left Perera -Time 09:49 -Correct Patient Yes -Correct Side, Site, Position Yes -Correct Procedure Yes -Procedure Performed Yes -Type of Procedure Debridement -Clinical Debridement Subcutaneous -Tissue Removed Subcutaneous -Post Debridement (cm) - Length 0.5 -Post Debridement (cm) - Width 0.6 -Post Debridement (cm) - Depth 0.2 -Total Square (Post) (cm) 0.30 -Area of Debridement (cm) - Length 0.5 -Area of Debridement (cm) - Width 0.6 -Total Square (Area) (cm) 0.30 -Tunneling No -Undermining/Tunneling No -Circular Undermining No -Wound/Ulcer Outcome Not Healed -Ulcer Cleansing Rinsed/ Irrigated with Saline -Foul Odor after Cleansing No -Bioengineered Tissue Yes -Type of Bioengineered Tissue Epifix 18mm Disc -Expiration Date 01/27/27 -Product Lot Number [id number] -Percent Used 100 -Lot number of Saline Used [id number] -Bleeding Controlled with Pressure -Treatment Response Procedure Tolerated Well -Offloading No -Debridement - Subq, 1st 20sq cm No -Apply Skin Sub - 1st 25 sq cm - Legs 1 -Epifix 18mm Disc 3 Pain Scale: 0-10 Numeric Is Patient Pain Free? Yes Assessment/Plan Assessment/Plan (1) Non-pressure chronic ulcer of left calf with fat layer exposed: CODE(S): L97.222 - Non-pressure chronic ulcer of left calf with fat layer exposed PLAN: Patient examined and evaluated, all findings discussed with patient in detail. Wound significantly improving every week. Patient will continue Glucerna supplementation. Wounds x1 was excisionally debrided down to including level of subcutaneous t issue, this is documented in the nursing notes predebridement measurements postoperative measurements anesthesia used an instrument used. This was performed with a 5 mm dermal curette. Topical anesthesia used. Hemostasis obtained with light compression. A 18 mm epi fix graft was applied to the superior left lower extremity ulceration, no waste. 3 billing units. Dressed with Adaptic and Steri-Strips. New ulceration dressed with hydrogel and DSD. Exp date 01/18/2027. Overlying compression dressing applied. Patient will continue twice weekly home health care dressing changes. She will ambulate as tolerated without assistance. Patient will continue daily elevation compression and exercise to manage edema improve wound healing outcome. And follow-up in 1 week. Wound is improving significantly at this time. (2) Other specified peripheral vascular diseases: CODE(S): I73.89 - Other specified peripheral vascular diseases
[2022-05-03 09:10] VITALS: BP 127/59; PULSE 71; RESP 17; TEMP 35.9
--- NOTE | 2022-05-03 09:24 | PN.PCM_ITS ---
History of Present Illness Date of Service: 05/03/22 Chief Complaint: Follow-up for 3 open areas on her left lower leg anterior perera History of Wound: 50-year-old female presents for follow-up on chronic ulceration to left anterior leg. Patient's right leg ulceration has healed at this time. Patient denies any fever chills nausea vomiting chest pain calf pain shortness of breath. Patient denies any changes since her previous visit has been compliant with treatment. Objective Data Objective Data Vital Signs: Vital Signs Temp Pulse Resp BP 96.7 F L 71 17 127/59 H 05/03/22 09:10 05/03/22 09:10 05/03/22 09:10 05/03/22 09:10 Oxygen Delivery Method Room Air Physical Exam Narrative Patient is alert oriented to person place and time. Patient is ambulatory ambulates without assistance. Vascular: Dorsalis pedis posterior tibial pulses diminished to bilateral lower extremity. Atrophic changes noted to skin such as thinning shiny and taut appearance. Diminished hair growth noted to bilateral lower extremity. Capillary fill time is less than 5 seconds to the digits bilaterally. Neurologic light touch protective sensation diminished to bilateral lower extremity Dermatologic: Healed left anterior medial leg wound. Musculoskeletal: No pain to calf squeeze bilateral lower extremity muscular strength full to bilateral lower extremity compartments. No gross deformity contributing to wound formation at this time Debridement Note Debridement Note Post-Debridement Measurements and Additional Note: Post-Debridement Measurements/Treatment - Nurse 1 - General Ulcer Assessment Start: 04/26/22 09:25 Freq: Status: Active Protocol: .LOWEXT Activity Type Activity Date Activity User E-Sign Co-Sign Detail Recorded Client Recorded Date Recorded By Document 04/26/22 09:25 MW [id number] 04/26/22 09:34 MW Document 05/03/22 09:10 ML [id number] 05/03/22 09:12 ML 04/26/22 05/03/22 09:25 09:10 - Today's Visit Information Type of service Initial Visit 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 Visit (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/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 ) Arrival Mode Ambulatory Ambulatory Transfer Assistance None None Accompanied by self Patient Identification Verified (Name & Yes Yes ) Patient Requires Transmission-Based No No Precautions Safety Precautions NA NA Vital Signs Temperature (97.8 F-99.1 F) 96.1 F L 96.7 F L Temperature Source Temporal Temporal Pulse Rate (60-100) 78 71 Pulse Location Monitor Monitor Respiratory Rate (12-18) 18 17 Respiratory rate source Observation Observation Oxygen Delivery Method Room Air Blood Pressure (90/60-120/80) 100/60 127/59 H Blood Pressure Mean (mm Hg) 73 81 Source Monitor Monitor Position Sitting Sitting Blood Pressure Location Left Forearm Left Arm History Since Last Visit- (Skip if this is Patient's initial visit) Have you changed medications since your No No last visit? Any new allergies or adverse reactions No No Had a fall/change in ADL's that may No No increase risk of falls Signs or symptoms of abuse and/or No No neglect since last visit Have you been in the hospital since your No No last visit? Has dressing in place as prescribed Yes Yes Has compression in place as prescribed Yes N/A Has offloadiing in place as prescribed N/A N/A Experienced any changes in pain level or No No management Left Footwear Regular Shoe Regular Shoe Right Footwear Regular Shoe Regular Shoe Pain Scale: 0-10 Numeric Is Patient Pain Free? Yes Yes WC - Nurse 1 - General Ulcer Measurement Start: 04/26/22 09:25 Freq: Status: Active Protocol: Activity Type Activity Date Activity User E-Sign Co-Sign Detail Recorded Client Recorded Date Recorded By Document 04/26/22 09:25 MW [id number] 04/26/22 09:34 MW Document 05/03/22 09:10 ML [id number] 05/03/22 09:12 ML 04/26/22 05/03/22 09:25 09:10 Wound Center Nurse 1 #4 Left Perera -Combined with other wound No -Current Size (cm) - Length 2.5 0.1 -Current Size (cm) - Width 0.8 0.1 -Current Size (cm) - Depth 0.1 0.1 -Total Square Cm 2.00 0.01 -Date of Last Picture (Recall this 04/26/22 field) -Photo Taken Yes -Epithelialization None Present -Tunneling No -Undermining/Tunneling No -Circular Undermining No -Exudate Amt None Present Small -Exudate Type Serous -Wound Margin Flat & Intact Distinct, Outline Attached -Granulation Amt None Present (0 %) -Granulation Quality N/A -Slough/Fibrin Yes -Necrosis Amt None Present (0 Large (67-100%) %) -Necrotic Tissue Type Adherent Slough -Structure Exposed N/A -Texture (Verónica-wound Skin Appearance) Assessed, Assessed Localized Edema ,Scarring -Moisture (Verónica-wound Skin Appearance) Assessed,Dry/ Assessed Scaly -Color (Verónica-wound Skin Appearance) Assessed, Assessed Hemosiderin Staining -Temperature (Verónica-wound Skin No Abnormality No Abnormality Appearance) (Pt Warm) (Pt Warm) -Tenderness on Palpation (Verónica-wound No No Skin Appearance) -Ulcer Cleansing Soap and Water Rinsed/ Irrigated with Saline -Foul Odor after Cleansing No No -Anesthetic Used 4% Lidocaine 4% Lidocaine Solution Solution Lower Limb Edema Present Yes Left Calf (cm) 43.5 Left Ankle (cm) 23.2 WC - Nurse 2 - General Ulcer CM Notes Start: 04/26/22 09:25 Freq: Status: Active Protocol: Activity Type Activity Date Activity User E-Sign Co-Sign Detail Recorded Client Recorded Date Recorded By Document 04/26/22 09:48 [id number] 04/26/22 09:50 Document 05/03/22 09:19 [id number] 05/03/22 09:22 04/26/22 05/03/22 09:48 09:19 Wound Center Nurse 2 #4 Left Perera -Time 09:49 09:19 -Correct Patient Yes No -Correct Side, Site, Position Yes No -Correct Procedure Yes No -Procedure Performed Yes No -Type of Procedure Debridement -Clinical Debridement Subcutaneous -Tissue Removed Subcutaneous -Post Debridement (cm) - Length 0.5 0 -Post Debridement (cm) - Width 0.6 0 -Post Debridement (cm) - Depth 0.2 0 -Total Square (Post) (cm) 0.30 0 -Area of Debridement (cm) - Length 0.5 0 -Area of Debridement (cm) - Width 0.6 0 -Total Square (Area) (cm) 0.30 0 -Tunneling No -Undermining/Tunneling No -Circular Undermining No -Wound/Ulcer Outcome Not Healed Healed- Epithelialized -Ulcer Cleansing Rinsed/ Irrigated with Saline -Foul Odor after Cleansing No -Bioengineered Tissue Yes -Type of Bioengineered Tissue Epifix 18mm Disc -Expiration Date 01/27/27 -Product Lot Number [id number] -Percent Used 100 -Lot number of Saline Used [id number] -Bleeding Controlled with Pressure -Treatment Response Procedure Tolerated Well -Offloading No -Debridement - Subq, 1st 20sq cm No -Apply Skin Sub - 1st 25 sq cm - Legs 1 -Epifix 18mm Disc 3 Pain Scale: 0-10 Numeric Is Patient Pain Free? Yes Yes WC - Nurse 3 - General Ulcer D/C NN Start: 04/26/22 09:25 Freq: Status: Active Protocol: Activity Type Activity Date Activity User E-Sign Co-Sign Detail Recorded Client Recorded Date Recorded By Document 04/26/22 10:53 AK [id number] 04/26/22 10:53 AK 04/26/22 10:53 Wound Care Nurse 3 #4 Left Perera -Foul Odor after Cleansing No -Negative Pressure Wound Therapy N/A -Primary Dressing Covered/Secured with Dry Gauze & Roll Gauze Left -Lotion applied to leg before No compression wrap -Compression Wrap Silvestre Wrap Pain Scale: 0-10 Numeric Is Patient Pain Free? Yes WC - Visit Discharge Discharge Condition Stable Ambulatory Status Ambulatory Transportation Private Auto Medication Reconcilliation completed & Yes provided to patient/care provider Clinical Summary of Care Provided Yes Assessment/Plan Assessment/Plan (1) Non-pressure chronic ulcer of left calf with fat layer exposed: CODE(S): L97.222 - Non-pressure chronic ulcer of left calf with fat layer exposed PLAN: Patient examined and evaluated, all findings discussed with patient in detail. Wound healed at this time. Patient will continue daily wound checks to ensure no recurrence. Daily the patient preventing wound formation as edema management. She will perform exercise elevation and compression for this. Patient notes she recently purchased compression stockings and is waiting for them to arrive. Until then she will continue with double Tubigrip. She will follow-up in my office in 4 weeks at which time we will check and make sure that her edema is well managed and that she has no recurrent wound formation. (2) Other specified peripheral vascular diseases: CODE(S): I73.89 - Other specified peripheral vascular diseases
== END 2022-05-04 08:35 | disposition home or self-care (01) ==
LOC: WC 09:00
PROVIDERS: PCP Internal Medicine; Referring Provider Podiatrist; Visit Provider Podiatrist
DX: L97.222 Non-pressure chronic ulcer of left calf with fat layer exposed (principal); I73.89 Other specified peripheral vascular diseases
CPT/HCPCS: 15271; 99213; Q4186; G0463

== ENCOUNTER 2022-06-14 09:30 | Outpatient (RCR) | payer MEDICAID, SELFPAY ==
[2022-05-24 09:31] VITALS: BP 123/72; PULSE 93; TEMP 36.3
--- NOTE | 2022-05-24 10:02 | PN.PCM_ITS ---
History of Present Illness Date of Service: 05/24/22 History of Wound: 50-year-old female presents for follow-up on chronic ulc eration to left anterior leg. Patient's right leg ulceration has healed at this time. Patient denies any fever chills nausea vomiting chest pain calf pain shortness of breath. Patient denies any changes since her previous visit has been compliant with treatment. Progress of Wound: Wound reopened since discharge. Patient was unable to receive compression st ockings and reopened due to uncontrolled edema. Denies constitutionals or pain at this time. Objective Data Objective Data Vital Signs: Vital Signs Temp Pulse BP 97.3 F L 93 123/72 H 05/24/22 09:31 05/24/22 09:31 05/24/22 09:31 Physical Exam Narrative Patient is alert oriented to person place and time. Patient is ambulatory ambulates without assistance. Vascular: Dorsalis pedis posterior tibial pulses diminished to bilateral lower extremity. Atrophic changes noted to skin such as thinning shiny and taut appearance. Diminished hair growth noted to bilateral lower extremity. Capillary fill time is less than 5 seconds to the digits bilaterally. Neurologic light touch protective sensation diminished to bilateral lower extremity Dermatologic: Full-thickness wound at anterior left leg at previous site of ulceration. No evidence of deep probing or undermining. No evidence of infection at this time. Mild serous drainage noted. Pre and postdebridement measurements document nursing notes. Musculoskeletal: No pain to calf squeeze bilateral lower extremity muscular strength full to bilateral lower extremity compartments. 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 Any new allergies or adverse reactions No Had a fall/change in ADL's that may No increase risk of falls Signs or symptoms of abuse and/or No neglect since last visit Have you been in the hospital since your No last visit? Has dressing in place as prescribed Yes Has compression in place as prescribed N/A Has offloadiing in place as prescribed N/A Experienced any changes in pain level or No management Left Footwear Regular Shoe Right Footwear Regular Shoe Pain Scale: 0-10 Numeric Is Patient Pain Free? No WC - Nurse 1 - General Ulcer Measurement Start: 05/24/22 09:31 Freq: Status: Active Protocol: Activity Type Activity Date Activity User E-sign Co-sign Detail Recorded Client Recorded Date Recorded By Document 05/24/22 09:31 EUNICE [id number] 05/24/22 09:35 EUNICE 05/24/22 09:31 Wound Center Nurse 1 6-right medial lower leg -Combined with other wound No -Current Size (cm) - Length 1.4 -Current Size (cm) - Width 1 -Total Square Cm 1.4 -Photo Taken No -Tunneling No -Undermining/Tunneling No -Circular Undermining No -Change in Wound Grade/Stage No -Exudate Amt Small -Exudate Type Serosanguineous -Wound Margin Distinct, Outline Attached -Granulation Amt Medium (34-66%) -Granulation Quality [place] -Slough/Fibrin Yes -Necrosis Amt Small (1-33%) -Necrotic Tissue Type Adherent Slough -Structure Exposed N/A -Texture (Verónica-wound Skin Appearance) Assessed, Scarring -Moisture (Verónica-wound Skin Appearance) No Abnormality, Assessed -Color (Verónica-wound Skin Appearance) Assessed, Erythema -Temperature (Verónica-wound Skin No Abnormality Appearance) (Pt Warm) -Tenderness on Palpation (Verónica-wound No Skin Appearance) -Ulcer Cleansing Rinsed/ Irrigated with Saline -Foul Odor after Cleansing No -Anesthetic Used 4% Lidocaine Solution WC - Nurse 2 - General Ulcer CM Notes Start: 05/24/22 09:31 Freq: Status: Active Protocol: Activity Type Activity Date Activity User E-sign Co-sign Detail Recorded Client Recorded Date Recorded By Document 05/24/22 09:53 MW [id number] 05/24/22 09:56 MW 05/24/22 09:53 Wound Center Nurse 2 -Time 09:53 -Correct Patient Yes -Correct Side, Site, Position Yes -Correct Procedure Yes -Procedure Performed Yes -Type of Procedure Debridement -Clinical Debridement Subcutaneous -Tissue Removed Subcutaneous -Post Debridement (cm) - Length 3.2 -Post Debridement (cm) - Width 1.0 -Post Debridement (cm) - Depth 0.1 -Total Square (Post) (cm) 3.20 -Area of Debridement (cm) - Length 3.2 -Area of Debridement (cm) - Width 1.0 -Total Square (Area) (cm) 3.20 -Tunneling No -Undermining/Tunneling No -Circular Undermining No -Wound/Ulcer Outcome Not Healed -Ulcer Cleansing Rinsed/ Irrigated with Saline -Foul Odor after Cleansing No -Bioengineered Tissue No -Bleeding Controlled with Pressure -Treatment Response Procedure Tolerated Well -Offloading No -Debridement - Subq, 1st 20sq cm Yes Pain Scale: 0-10 Numeric Is Patient Pain Free? Yes Assessment/Plan Assessment/Plan (1) Non-pressure chronic ulcer of left calf with fat layer exposed: CODE(S): L97.222 - Non-pressure chronic ulcer of left calf with fat layer exposed PLAN: Patient examined and evaluated, all findings discussed with patient in detail. Wound reoccurred due to poorly controlled edema. Wound excisionally debrided down to including level of subcutaneous tissue of all nonviable tissue using 5 mm dermal curette after obtaining oral consent hemostasis obtained with light compression no anesthesia used. Patient tolerated procedure well. Pre and postdebridement measurements document nursing notes. This was at the level of the left anterior leg. No signs of infection at this time we will plan for silver alginate with DSD and 3M compression wrap changed by home health care once a week. Patient will follow up in 1 week. She notes that she ordered compression stockings from [employer] and is awaiting these she should have them in 2 weeks. She will continue compression elevation exercise for edema management and follow-up in 1 week. (2) Other specified peripheral vascular diseases: CODE(S): I73.89 - Other specified peripheral vascular diseases
--- NOTE | 2022-05-31 10:34 | PCM.WC.PN ---
History of Present Illness Date of Service: 05/31/22 Chief Complaint: Follow-up for 3 open areas on her left lower leg anterior perera History of Wound: 50-year-old female presents for follow-up on chronic ulceration to left anterior leg. Patient's right leg ulceration has healed at this time. Patient denies any fever chills nausea vomiting chest pain calf pain shortness of breath. Patient denies any changes since her previous visit has been compliant with treatment. Progress of Wound: Wound reopened since discharge. Patient was unable to receive compression stockings and reopened due to uncontrolled edema. Denies constitutionals or pain at this time. Objective Data Objective Data Vital Signs: Vital Signs Temp Pulse BP 97.3 F L 93 123/72 H 05/24/22 09:31 05/24/22 09:31 05/24/22 09:31 Physical Exam Narrative Patient is alert oriented to person place and time. Patient is ambulatory ambulates without assistance. Vascular: Dorsalis pedis posterior tibial pulses diminished to bilateral lower extremity. Atrophic changes noted to skin such as thinning shiny and taut appearance. Diminished hair growth noted to bilateral lower extremity. Capillary fill time is less than 5 seconds to the digits bilaterally. Neurologic light touch protective sensation diminished to bilateral lower extremity Dermatologic: Full-thickness wound at anterior left leg at previous site of ulceration. No evidence of deep probing or undermining. No evidence of infection at this time. Mild serous drainage noted. Pre and postdebridement measurements document nursing notes. Musculoskeletal: No pain to calf squeeze bilateral lower extremity muscular strength full to bilateral lower extremity compartments. No gross deformity contributing to wound formation at this time Debridement Note Debridement Note Post-Debridement Measurements and Additional Note: Post-Debridement Measurements/Treatment - Nurse 1 - General Ulcer Assessment Start: 05/24/22 09:31 Freq: Status: Active Protocol: NILO.LOWEXT Activity Type Activity Date Activity User E-sign Co-sign Detail Recorded Client Recorded Date Recorded By Document 05/24/22 09:31 EUNICE [id number] 05/24/22 09:35 EUNICE 05/24/22 09:31 - Today's Visit Information Type of service Follow-up Visit (Physician/MASONRY INSTALLER ) Arrival Mode Ambulatory Patient Identification Verified (Name & Yes ) Patient Requires Transmission-Based No Precautions Safety Precautions NA Vital Signs Temperature (97.8 F-99.1 F) 97.3 F L Temperature Source Temporal Pulse Rate (60-100) 93 Pulse Location Monitor Blood Pressure (90/60-120/80) 123/72 H Blood Pressure Mean (mm Hg) 89 Source Monitor History Since Last Visit- (Skip if this is Patient's initial visit) Have you changed medications since your No last visit? Any new allergies or adverse reactions No Had a fall/change in ADL's that may No increase risk of falls Signs or symptoms of abuse and/or No neglect since last visit Have you been in the hospital since your No last visit? Has dressing in place as prescribed Yes Has compression in place as prescribed N/A Has offloadiing in place as prescribed N/A Experienced any changes in pain level or No management Left Footwear Regular Shoe Right Footwear Regular Shoe Pain Scale: 0-10 Numeric Is Patient Pain Free? No WC - Nurse 1 - General Ulcer Measurement Start: 05/24/22 09:31 Freq: Status: Active Protocol: Activity Type Activity Date Activity User E-sign Co-sign Detail Recorded Client Recorded Date Recorded By Document 05/24/22 09:31 VT [id number] 05/24/22 09:35 EUNICE 05/24/22 09:31 Wound Center Nurse 1 6-right medial lower leg -Combined with other wound No -Current Size (cm) - Length 1.4 -Current Size (cm) - Width 1 -Total Square Cm 1.4 -Photo Taken No -Tunneling No -Undermining/Tunneling No -Circular Undermining No -Change in Wound Grade/Stage No -Exudate Amt Small -Exudate Type Serosanguineous -Wound Margin Distinct, Outline Attached -Granulation Amt Medium (34-66%) -Granulation Quality [place] -Slough/Fibrin Yes -Necrosis Amt Small (1-33%) -Necrotic Tissue Type Adherent Slough -Structure Exposed N/A -Texture (Verónica-wound Skin Appearance) Assessed, Scarring -Moisture (Verónica-wound Skin Appearance) No Abnormality, Assessed -Color (Verónica-wound Skin Appearance) Assessed, Erythema -Temperature (Verónica-wound Skin No Abnormality Appearance) (Pt Warm) -Tenderness on Palpation (Verónica-wound No Skin Appearance) -Ulcer Cleansing Rinsed/ Irrigated with Saline -Foul Odor after Cleansing No -Anesthetic Used 4% Lidocaine Solution WC - Nurse 2 - General Ulcer CM Notes Start: 05/24/22 09:31 Freq: Status: Active Protocol: Activity Type Activity Date Activity User E-sign Co-sign Detail Recorded Client Recorded Date Recorded By Document 05/24/22 09:53 MW [id number] 05/24/22 09:56 MW Document 05/31/22 10:32 [id number] 05/31/22 10:33 JF 05/24/22 05/31/22 09:53 10:32 Wound Center Nurse 2 6-right medial lower leg -Time 09:53 -Correct Patient Yes No -Correct Side, Site, Position Yes No -Correct Procedure Yes No -Procedure Performed Yes No -Type of Procedure Debridement -Clinical Debridement Subcutaneous -Tissue Removed Subcutaneous -Post Debridement (cm) - Length 3.2 0 -Post Debridement (cm) - Width 1.0 0 -Post Debridement (cm) - Depth 0.1 0 -Total Square (Post) (cm) 3.20 0 -Area of Debridement (cm) - Length 3.2 0 -Area of Debridement (cm) - Width 1.0 0 -Total Square (Area) (cm) 3.20 0 -Tunneling No -Undermining/Tunneling No -Circular Undermining No -Wound/Ulcer Outcome Not Healed Healed- Epithelialized -Ulcer Cleansing Rinsed/ Irrigated with Saline -Foul Odor after Cleansing No -Bioengineered Tissue No -Bleeding Controlled with Pressure -Treatment Response Procedure Tolerated Well -Offloading No -Debridement - Subq, 1st 20sq cm Yes Pain Scale: 0-10 Numeric Is Patient Pain Free? Yes Yes - Nurse 3 - General Ulcer D/C NN Start: 05/24/22 09:31 Freq: Status: Active Protocol: Activity Type Activity Date Activity User E-sign Co-sign Detail Recorded Client Recorded Date Recorded By Document 05/24/22 10:05 MW [id number] 05/24/22 10:06 MW 05/24/22 10:05 Wound Care Nurse 3 6-right medial lower leg -Ulcer Cleansing Rinsed/ Irrigated with Saline -Foul Odor after Cleansing No -Negative Pressure Wound Therapy N/A -Primary Dressing Applied Silvercel -Primary Dressing Covered/Secured with Dry Gauze -[place]cel 1 Left -Lotion applied to leg before No compression wrap -Multi-Layered Wrap Application Multi-Layer Comp - Left ($) Treatment Response Procedure Tolerated Well Pain Scale: 0-10 Numeric Is Patient Pain Free? Yes Teaching: Wound Center Dressing Your Wound -Person Taught Patient -Teaching Method Discussion, Demonstration -Response to teaching Verbalize understanding WC - Visit Discharge Discharge Condition Stable Ambulatory Status Cane Transportation Private Auto Accompanied by self Medication Reconcilliation completed & No provided to patient/care provider Clinical Summary of Care Provided Yes Assessment/Plan Assessment/Plan (1) Non-pressure chronic ulcer of left calf with fat layer exposed: CODE(S): L97.222 - Non-pressure chronic ulcer of left calf with fat layer exposed PLAN: Patient examined and evaluated, all findings discussed with patient in detail. Wound reoccurred due to poorly controlled edema. Patient had some difficulty with 3M compression wraps had to remove them due to them sliding down and putting pressure on her wound. Patient filled prescription for compression stockings, was unable to put these on herself though. We will order 30 to 40 mm compression via [place] or juxta lite wraps due to difficulties with compression stockings. Wound excisionally debrided down to including level of subcutaneous tissue of all nonviable tissue using 5 mm dermal curette after obtaining oral consent hemostasis obtained with light compression no anesthesia used. Patient tolerated procedure well. Pre and postdebridement measurements document nursing notes. This was at the level of the left anterior leg. No signs of infection at this time we will plan for silver alginate with DSD and 3M compression wrap changed by home health care once a week. Patient will follow up in 1 week. She notes that she ordered compression stockings from [employer] and is awaiting these she should have them in 2 weeks. She will continue compression elevation exercise for edema management and follow-up in 1 week. (2) Other specified peripheral vascular diseases: CODE(S): I73.89 - Other specified peripheral vascular diseases
[2022-05-31 10:52] VITALS: BP 132/74; PULSE 89; O2SAT 97
--- NOTE | 2022-05-31 10:56 | WC ---
Pt took off 3m because of painful ulcer. She came in with aby wraps and asked for aby wraps as she was leaving. I sent them home with her since hers were thrown away
[2022-06-07 10:47] VITALS: BP 146/99; PULSE 84; TEMP 35.6
--- NOTE | 2022-06-07 11:14 | PN.PCM_ITS ---
History of Present Illness Date of Service: 06/07/22 Chief Complaint: Follow-up for 3 open areas on her left lower leg anterior perera History of Wound: 50-year-old female presents for follow-up on chronic ulceration to left anterior leg. Patient's right leg ulceration has healed at this time. Patient denies any fever chills nausea vomiting chest pain calf pain shortness of breath. Patient denies any changes since her previous visit has been compliant with treatment. Progress of Wound: Wound reopened since discharge. Patient was unable to receive compression stockings and reopened due to uncontrolled edema. Denies constitutionals or pain at this time. Objective Data Objective Data Vital Signs: Vital Signs Temp Pulse BP Pulse Ox O2 Del Method 96.1 F L 84 146/99 H 97 Room Air 06/07/22 10:47 06/07/22 10:47 06/07/22 10:47 05/31/22 10:52 05/31/22 10:52 Oxygen Delivery Method Room Air Physical Exam Narrative Patient is alert oriented to person place and time. Patient is ambulatory ambulates without assistance. Vascular: Dorsalis pedis posterior tibial pulses diminished to bilateral lower extremity. Atrophic changes noted to skin such as thinning shiny and taut appearance. Diminished hair growth noted to bilateral lower extremity. Capillary fill time is less than 5 seconds to the digits bilaterally. Neurologic light touch protective sensation diminished to bilateral lower extremity Dermatologic: Full-thickness wound at anterior left leg at previous site of ulceration. No evidence of deep probing or undermining. No evidence of infection at this time. Mild serous drainage noted. Pre and postdebridement measurements document nursing notes. Musculoskeletal: No pain to calf squeeze bilateral lower extremity muscular strength full to bilateral lower extremity compartments. No gross deformity contributing to wound formation at this time Debridement Note Debridement Note Post-Debridement Measurements and Additional Note: Post-Debridement Measurements/Treatment NILO - Nurse 1 - General Ulcer Assessment Start: 05/24/22 09:31 Freq: Status: Active Protocol: PERRY Activity Type Activity Date Activity User E-sign Co-sign Detail Recorded Client Recorded Date Recorded By Document 05/24/22 09:31 EUNICE [id number] 05/24/22 09:35 AK Document 05/31/22 10:52 EUNICE [id number] 05/31/22 10:57 AK Document 06/07/22 10:47 [id number] 06/07/22 10:50 KR 05/24/22 05/31/22 06/07/22 09:31 10:52 10:47 - Today's Visit Information Type of service Follow-up Visit Follow-up Visit Follow-up Visit (Physician/CHILD DEVELOPMENT TEACHER (Physician/CHILD DEVELOPMENT TEACHER (Physician/CHILD DEVELOPMENT TEACHER ) ) ) Arrival Mode Ambulatory Ambulatory Ambulatory Patient Identification Verified (Name & Yes Yes Yes ) Patient Requires Transmission-Based No No Precautions Safety Precautions NA NA Finger Stick Blood Sugar(mg/dl) (if 126 indicated): Blood Sugar Stated by Patient Vital Signs Temperature (97.8 F-99.1 F) 97.3 F L 96.1 F L Temperature Source Temporal Temporal Pulse Rate (60-100) 93 89 84 Pulse Location Monitor Monitor Pulse Oximetry 97 Oxygen Delivery Method Room Air Blood Pressure (90/60-120/80) 123/72 H 132/74 H 146/99 H Blood Pressure Mean (mm Hg) 89 93 114 Source Monitor Monitor Monitor Position Semi-Fowlers Blood Pressure Location Right Arm History Since Last Visit- (Skip if this is Patient's initial visit) Have you changed medications since your No No No last visit? Any new allergies or adverse reactions No No No Had a fall/change in ADL's that may No No No increase risk of falls Signs or symptoms of abuse and/or No No No neglect since last visit Have you been in the hospital since your No No No last visit? Has dressing in place as prescribed Yes Yes Yes Has compression in place as prescribed N/A No No Has offloadiing in place as prescribed N/A N/A N/A Experienced any changes in pain level or No No No management Left Footwear Regular Shoe Regular Shoe Regular Shoe Right Footwear Regular Shoe Regular Shoe Regular Shoe Pain Scale: 0-10 Numeric Is Patient Pain Free? No Yes Yes - Nurse 1 - General Ulcer Measurement Start: 05/24/22 09:31 Freq: Status: Active Protocol: Activity Type Activity Date Activity User E-sign Co-sign Detail Recorded Client Recorded Date Recorded By Document 05/24/22 09:31 EUNICE [id number] 05/24/22 09:35 AK Document 05/31/22 10:52 EUNICE [id number] 05/31/22 10:57 AK Document 06/07/22 10:47 KR [id number] 06/07/22 10:50 KR 05/24/22 05/31/22 06/07/22 09:31 10:52 10:47 Wound Center Nurse 1 6-right medial lower leg -Combined with other wound No -Current Size (cm) - Length 1.4 -Current Size (cm) - Width 1 -Total Square Cm 1.4 -Photo Taken No -Tunneling No -Undermining/Tunneling No -Circular Undermining No -Change in Wound Grade/Stage No -Exudate Amt Small -Exudate Type Serosanguineous -Wound Margin Distinct, Outline Attached -Granulation Amt Medium (34-66%) -Granulation Quality [place] -Slough/Fibrin Yes -Necrosis Amt Small (1-33%) -Necrotic Tissue Type Adherent Slough -Structure Exposed N/A -Texture (Verónica-wound Skin Appearance) Assessed, Scarring -Moisture (Verónica-wound Skin Appearance) No Abnormality, Assessed -Color (Verónica-wound Skin Appearance) Assessed, Erythema -Temperature (Verónica-wound Skin No Abnormality Appearance) (Pt Warm) -Tenderness on Palpation (Verónica-wound No Skin Appearance) -Ulcer Cleansing Rinsed/ Irrigated with Saline -Foul Odor after Cleansing No -Anesthetic Used 4% Lidocaine Solution #4 Left Perera -Combined with other wound No -Current Size (cm) - Length 2.2 4.6 -Current Size (cm) - Width 1.5 1.3 -Current Size (cm) - Depth 0.1 0.1 -Total Square Cm 3.30 5.98 -Photo Taken No -Tunneling No -Undermining/Tunneling No -Circular Undermining No -Classification - Thickness Partial Thickness -Change in Wound Grade/Stage No -Exudate Amt Large Medium -Exudate Type Serosanguineous Serosanguineous -Wound Margin Distinct, Distinct, Outline Outline Attached Attached -Granulation Amt Large (67-100%) Large (67-100%) -Granulation Quality [place] -Slough/Fibrin No -Necrosis Amt None Present (0 None Present (0 %) %) -Structure Exposed N/A -Texture (Verónica-wound Skin Appearance) No Abnormality, Assessed, Assessed Scarring -Moisture (Verónica-wound Skin Appearance) No Abnormality, Assessed Assessed -Color (Verónica-wound Skin Appearance) No Abnormality, No Abnormality, Assessed Assessed -Temperature (Verónica-wound Skin No Abnormality No Abnormality Appearance) (Pt Warm) (Pt Warm) -Tenderness on Palpation (Verónica-wound No No Skin Appearance) -Ulcer Cleansing Rinsed/ Rinsed/ Irrigated with Irrigated with Saline Saline -Foul Odor after Cleansing No No -Anesthetic Used 5% Lidocaine 5% Lidocaine Gel Gel Left Calf (cm) 47 49 Left Ankle (cm) 23 23.1 WC - Nurse 2 - General Ulcer CM Notes Start: 05/24/22 09:31 Freq: Status: Active Protocol: Activity Type Activity Date Activity User E-sign Co-sign Detail Recorded Client Recorded Date Recorded By Document 05/24/22 09:53 MW [id number] 05/24/22 09:56 MW Document 05/31/22 10:32 JF [id number] 05/31/22 10:33 JF Edit Result 05/31/22 10:32 JF (1) [id number] 05/31/22 10:59 JF Document 06/07/22 11:06 JF [id number] 06/07/22 11:08 JF (1) #4 Left Perera - Time => 10:58 - Correct Patient => Yes - Correct Side, Site, Position => Yes - Correct Procedure => Yes - Procedure Performed => Yes - Type of Procedure => Debridement - Clinical Debridement => Subcutaneous - Tissue Removed => Subcutaneous - Post Debridement (cm) - Length => 3.0 - Post Debridement (cm) - Width => 0.8 - Post Debridement (cm) - Depth => 0.1 - Total Square (Post) (cm) => 2.40 - Area of Debridement (cm) - Length => 3.0 - Area of Debridement (cm) - Width => 0.8 - Total Square (Area) (cm) => 2.40 - Tunneling => No - Undermining/Tunneling => No - Circular Undermining => No - Wound/Ulcer Outcome => Not Healed - Ulcer Cleansing => Rinsed/Irrigated => with Saline - Foul Odor after Cleansing => No - Bioengineered Tissue => No - Bleeding Controlled with => Pressure - Treatment Response => Procedure => Tolerated Well - Offloading => No - Debridement - Subq, 20sq cm => Yes 05/24/22 05/31/22 06/07/22 09:53 10:32 11:06 Wound Center Nurse 2 6-right medial lower leg -Time 09:53 -Correct Patient Yes No -Correct Side, Site, Position Yes No -Correct Procedure Yes No -Procedure Performed Yes No -Type of Procedure Debridement -Clinical Debridement Subcutaneous -Tissue Removed Subcutaneous -Post Debridement (cm) - Length 3.2 0 -Post Debridement (cm) - Width 1.0 0 -Post Debridement (cm) - Depth 0.1 0 -Total Square (Post) (cm) 3.20 0 -Area of Debridement (cm) - Length 3.2 0 -Area of Debridement (cm) - Width 1.0 0 -Total Square (Area) (cm) 3.20 0 -Tunneling No -Undermining/Tunneling No -Circular Undermining No -Wound/Ulcer Outcome Not Healed Healed- Epithelialized -Ulcer Cleansing Rinsed/ Irrigated with Saline -Foul Odor after Cleansing No -Bioengineered Tissue No -Bleeding Controlled with Pressure -Treatment Response Procedure Tolerated Well -Offloading No -Debridement - Subq, 20sq cm Yes #4 Left Pe[place] -Time 10:58 11:07 -Correct Patient Yes Yes -Correct Side, Site, Position Yes Yes -Correct Procedure Yes Yes -Procedure Performed Yes Yes -Type of Procedure Debridement Debridement -Clinical Debridement Subcutaneous Subcutaneous -Tissue Removed Subcutaneous Subcutaneous -Post Debridement (cm) - Length 3.0 4.5 -Post Debridement (cm) - Width 0.8 1.0 -Post Debridement (cm) - Depth 0.1 0.1 -Total Square (Post) (cm) 2.40 4.50 -Area of Debridement (cm) - Length 3.0 4.5 -Area of Debridement (cm) - Width 0.8 1.0 -Total Square (Area) (cm) 2.40 4.50 -Tunneling No No -Undermining/Tunneling No No -Circular Undermining No No -Wound/Ulcer Outcome Not Healed Not Healed -Ulcer Cleansing Rinsed/ Rinsed/ Irrigated with Irrigated with Saline Saline -Foul Odor after Cleansing No No -Bioengineered Tissue No No -Bleeding Controlled with Pressure Pressure -Treatment Response Procedure Procedure Tolerated Well Tolerated Well -Offloading No No -Debridement - Subq, 20sq cm Yes Yes Pain Scale: 0-10 Numeric Is Patient Pain Free? Yes Yes Yes WC - Nurse 3 - General Ulcer D/C NN Start: 05/24/22 09:31 Freq: Status: Active Protocol: Activity Type Activity Date Activity User E-sign Co-sign Detail Recorded Client Recorded Date Recorded By Document 05/24/22 10:05 MW [id number] 05/24/22 10:06 MW Document 05/31/22 10:52 AK [id number] 05/31/22 10:57 AK 05/24/22 05/31/22 10:05 10:52 Wound Care Nurse 3 6-right medial lower leg -Ulcer Cleansing Rinsed/ Irrigated with Saline -Foul Odor after Cleansing No -Negative Pressure Wound Therapy N/A -Primary Dressing Applied Silvercel -Primary Dressing Covered/Secured with Dry Gauze -[place] 1 #4 Left [place] -Ulcer Cleansing Rinsed/ Irrigated with Saline -Foul Odor after Cleansing No -Negative Pressure Wound Therapy N/A -Primary Dressing Applied [place]cel -Primary Dressing Covered/Secured with Dry Gauze -[place]cel 1 Left -Lotion applied to leg before No compression wrap -Multi-Layered Wrap Application Multi-Layer Multi-Layer Comp - Left ($) Comp - Left ($) -Compression Wrap Silvestre Wrap Treatment Response Procedure Tolerated Well Vital Signs Pulse Rate (60-100) 89 Pulse Oximetry 97 Oxygen Delivery Method Room Air Blood Pressure (90/60-120/80) 132/74 H Blood Pressure Mean (mm Hg) 93 Source Monitor Pain Scale: 0-10 Numeric Is Patient Pain Free? Yes Yes Teaching: Wound Center Dressing Your Wound -Person Taught Patient -Teaching Method Discussion, Demonstration -Response to teaching Verbalize understanding WC - Visit Discharge Discharge Condition Stable Stable Ambulatory Status Cane Ambulatory Transportation Private Auto Private Auto Accompanied by self Medication Reconcilliation completed & No Yes provided to patient/care provider Clinical Summary of Care Provided Yes Yes 05/31/22 10:56 Wound Center by Moses Morse Pt took off 3m because of painful ulcer. She came in with silvestre wraps and asked for silvestre wraps as she was leaving. I sent them home with her since hers were thrown away Initialized on 05/31/22 10:56 - END OF NOTE Assessment/Plan Assessment/Plan (1) Non-pressure chronic ulcer of left calf with fat layer exposed: CODE(S): L97.222 - Non-pressure chronic ulcer of left calf with fat layer exposed PLAN: Patient examined and evaluated, all findings discussed with patient in detail. Wound reoccurred due to poorly controlled edema. Patient had some difficulty with 3M compression wraps had to remove them due to them sliding down and putting pressure on her wound. Patient filled prescription for compression stockings, was unable to put these on herself though. We will order 30 to 40 mm compression via [place] or juxta lite wraps due to difficulties with compression stockings. Wound excisionally debrided down to including level of subcutaneous tissue of all nonviable tissue using 5 mm dermal curette after obtaining oral consent hemostasis obtained with light compression no anesthesia used. Patient tolerated procedure well. Pre and postdebridement measurements document nursing notes. This was at the level of the left anterior leg. No signs of infection at this time we will plan for silver alginate with DSD and 3M compression wrap changed by home health care once a week. Patient will follow up in 1 week. She notes that she ordered compression stockings from [employer] and is awaiting these she should have them in 2 weeks. She will continue compression elevation exercise for edema management and follow-up in 1 week. (2) Other specified peripheral vascular diseases: CODE(S): I73.89 - Other specified peripheral vascular diseases
[2022-06-14 09:13] VITALS: BP 155/97; PULSE 73; RESP 18; TEMP 36.1
--- NOTE | 2022-06-14 09:44 | PN.PCM_ITS ---
History of Present Illness Date of Service: 06/14/22 Chief Complaint: Follow-up for 3 open areas on her left lower leg anterior perera History of Wound: 50-year-old female presents for follow-up on chronic ulceration to left anterior leg. Patient's right leg ulceration has healed at this time. Patient denies any fever chills nausea vomiting chest pain calf pain shortness of breath. Patient denies any changes since her previous visit has been compliant with treatment. Progress of Wound: Wound reopened since discharge. Patient was unable to receive compression stockings and reopened due to uncontrolled edema. Denies constitutionals or pain at this time. Objective Data Objective Data Vital Signs: Vital Signs Temp Pulse Resp BP Pulse Ox O2 Del Method 97.0 F L 73 18 155/97 H 97 Room Air 06/14/22 09:13 06/14/22 09:13 06/14/22 09:13 06/14/22 09:13 05/31/22 10:52 06/14/22 09:13 Oxygen Delivery Method Room Air Physical Exam Narrative Patient is alert oriented to person place and time. Patient is ambulatory ambulates without assistance. Vascular: Dorsalis pedis posterior tibial pulses diminished to bilateral lower extremity. Atrophic changes noted to skin such as thinning shiny and taut appearance. Diminished hair growth noted to bilateral lower extremity. Capillary fill time is less than 5 seconds to the digits bilaterally. Neurologic light touch protective sensation diminished to bilateral lower extremity Dermatologic: Full-thickness wound at anterior left leg at previous site of ul ceration. No evidence of deep probing or undermining. No evidence of infection at this time. Mild serous drainage noted. Pre and postdebridement measurements document nursing notes. Musculoskeletal: No pain to calf squeeze bilateral lower extremity muscular strength full to bilateral lower extremity compartments. No gross deformity contributing to wound formation at this time Debridement Note Debridement Note Post-Debridement Measurements and Additional Note: Post-Debridement Measurements/Treatment NILO - Nurse 1 - General Ulcer Assessment Start: 05/24/22 09:31 Freq: Status: Active Protocol: IZABELEXT Activity Type Activity Date Activity User E-sign Co-sign Detail Recorded Client Recorded Date Recorded By Document 05/24/22 09:31 EUNICE [id number] 05/24/22 09:35 AK Document 05/31/22 10:52 EUNICE [id number] 05/31/22 10:57 AK Document 06/07/22 10:47 KR [id number] 06/07/22 10:50 KR Document 06/14/22 09:13 MW [id number] 06/14/22 09:23 MW 05/24/22 05/31/22 06/07/22 09:31 10:52 10:47 - Today's Visit Information Type of service Follow-up Visit Follow-up Visit Follow-up Visit (Physician/PIT HOIST OPERATOR (Physician/PIT HOIST OPERATOR (Physician/PIT HOIST OPERATOR ) ) ) Arrival Mode Ambulatory Ambulatory Ambulatory Transfer Assistance Accompanied by Patient Identification Verified (Name & Yes Yes Yes ) Patient Requires Transmission-Based No No Precautions Safety Precautions NA NA Finger Stick Blood Sugar(mg/dl) (if 126 indicated): Blood Sugar Stated by Patient Vital Signs Temperature (97.8 F-99.1 F) 97.3 F L 96.1 F L Temperature Source Temporal Temporal Pulse Rate (60-100) 93 89 84 Pulse Location Monitor Monitor Respiratory Rate (12-18) Respiratory rate source Pulse Oximetry 97 Oxygen Delivery Method Room Air Blood Pressure (90/60-120/80) 123/72 H 132/74 H 146/99 H Blood Pressure Mean (mm Hg) 89 93 114 Source Monitor Monitor Monitor Position Semi-Fowlers Blood Pressure Location Right Arm History Since Last Visit- (Skip if this is Patient's initial visit) Have you changed medications since your No No No last visit? Any new allergies or adverse reactions No No No Had a fall/change in ADL's that may No No No increase risk of falls Signs or symptoms of abuse and/or No No No neglect since last visit Have you been in the hospital since your No No No last visit? Has dressing in place as prescribed Yes Yes Yes Has compression in place as prescribed N/A No No Has offloadiing in place as prescribed N/A N/A N/A Experienced any changes in pain level or No No No management Left Footwear Regular Shoe Regular Shoe Regular Shoe Right Footwear Regular Shoe Regular Shoe Regular Shoe Pain Scale: 0-10 Numeric Is Patient Pain Free? No Yes Yes 06/14/22 09:13 WC - Today's Visit Information Type of service Follow-up Visit (Physician/PIT HOIST OPERATOR ) Arrival Mode Ambulatory Transfer Assistance None Accompanied by dad Patient Identification Verified (Name & Yes ) Patient Requires Transmission-Based No Precautions Safety Precautions NA Finger Stick Blood Sugar(mg/dl) (if indicated): Blood Sugar Vital Signs Temperature (97.8 F-99.1 F) 97.0 F L Temperature Source Temporal Pulse Rate (60-100) 73 Pulse Location Monitor Respiratory Rate (12-18) 18 Respiratory rate source Observation Pulse Oximetry Oxygen Delivery Method Room Air Blood Pressure (90/60-120/80) 155/97 H Blood Pressure Mean (mm Hg) 116 Source Monitor Position Sitting Blood Pressure Location Right Forearm History Since Last Visit- (Skip if this is Patient's initial visit) Have you changed medications since your No last visit? Any new allergies or adverse reactions No Had a fall/change in ADL's that may No increase risk of falls Signs or symptoms of abuse and/or No neglect since last visit Have you been in the hospital since your No last visit? Has dressing in place as prescribed Yes Has compression in place as prescribed Yes Has offloadiing in place as prescribed N/A Experienced any changes in pain level or No management Left Footwear Regular Shoe Right Footwear Regular Shoe Pain Scale: 0-10 Numeric Is Patient Pain Free? Yes WC - Nurse 1 - General Ulcer Measurement Start: 05/24/22 09:31 Freq: Status: Active Protocol: Activity Type Activity Date Activity User E-sign Co-sign Detail Recorded Client Recorded Date Recorded By Document 05/24/22 09:31 ND [id number] 05/24/22 09:35 ND Document 05/31/22 10:52 ND [id number] 05/31/22 10:57 AK Document 06/07/22 10:47 [id number] 06/07/22 10:50 KR Document 06/14/22 09:13 MW [id number] 06/14/22 09:23 MW 05/24/22 05/31/22 06/07/22 09:31 10:52 10:47 Wound Center Nurse 1 6-right medial lower leg -Combined with other wound No -Current Size (cm) - Length 1.4 -Current Size (cm) - Width 1 -Total Square Cm 1.4 -Photo Taken No -Tunneling No -Undermining/Tunneling No -Circular Undermining No -Change in Wound Grade/Stage No -Exudate Amt Small -Exudate Type Serosanguineous -Wound Margin Distinct, Outline Attached -Granulation Amt Medium (34-66%) -Granulation Quality [place] -Slough/Fibrin Yes -Necrosis Amt Small (1-33%) -Necrotic Tissue Type Adherent Slough -Structure Exposed N/A -Texture (Verónica-wound Skin Appearance) Assessed, Scarring -Moisture (Verónica-wound Skin Appearance) No Abnormality, Assessed -Color (Verónica-wound Skin Appearance) Assessed, Erythema -Temperature (Verónica-wound Skin No Abnormality Appearance) (Pt Warm) -Tenderness on Palpation (Verónica-wound No Skin Appearance) -Ulcer Cleansing Rinsed/ Irrigated with Saline -Foul Odor after Cleansing No -Anesthetic Used 4% Lidocaine Solution #4 Left Perera -Combined with other wound No -Current Size (cm) - Length 2.2 4.6 -Current Size (cm) - Width 1.5 1.3 -Current Size (cm) - Depth 0.1 0.1 -Total Square Cm 3.30 5.98 -Date of Last Picture (Recall this field) -Photo Taken No -Epithelialization -Tunneling No -Undermining/Tunneling No -Circular Undermining No -Classification - Thickness Partial Thickness -Change in Wound Grade/Stage No -Exudate Amt Large Medium -Exudate Type Serosanguineous Serosanguineous -Wound Margin Distinct, Distinct, Outline Outline Attached Attached -Granulation Amt Large (67-100%) Large (67-100%) -Granulation Quality Red Red -Slough/Fibrin No -Necrosis Amt None Present (0 None Present (0 %) %) -Necrotic Tissue Type -Structure Exposed N/A -Texture (Verónica-wound Skin Appearance) No Abnormality, Assessed, Assessed Scarring -Moisture (Verónica-wound Skin Appearance) No Abnormality, Assessed Assessed -Color (Verónica-wound Skin Appearance) No Abnormality, No Abnormality, Assessed Assessed -Temperature (Verónica-wound Skin No Abnormality No Abnormality Appearance) (Pt Warm) (Pt Warm) -Tenderness on Palpation (Verónica-wound No No Skin Appearance) -Ulcer Cleansing Rinsed/ Rinsed/ Irrigated with Irrigated with Saline Saline -Foul Odor after Cleansing No No -Anesthetic Used 5% Lidocaine 5% Lidocaine Gel Gel Lower Limb Edema Present Left Calf (cm) 47 49 Left Ankle (cm) 23 23.1 06/14/22 09:13 Wound Center Nurse 1 6-right medial lower leg -Combined with other wound -Current Size (cm) - Length -Current Size (cm) - Width -Total Square Cm -Photo Taken -Tunneling -Undermining/Tunneling -Circular Undermining -Change in Wound Grade/Stage -Exudate Amt -Exudate Type -Wound Margin -Granulation Amt -Granulation Quality -Slough/Fibrin -Necrosis Amt -Necrotic Tissue Type -Structure Exposed -Texture (Verónica-wound Skin Appearance) -Moisture (Verónica-wound Skin Appearance) -Color (Verónica-wound Skin Appearance) -Temperature (Verónica-wound Skin Appearance) -Tenderness on Palpation (Verónica-wound Skin Appearance) -Ulcer Cleansing -Foul Odor after Cleansing -Anesthetic Used #4 Left Perera -Combined with other wound No -Current Size (cm) - Length 1.9 -Current Size (cm) - Width 1.8 -Current Size (cm) - Depth 0.1 -Total Square Cm 3.42 -Date of Last Picture (Recall this 06/14/22 field) -Photo Taken Yes -Epithelialization Small 1-33% -Tunneling No -Undermining/Tunneling No -Circular Undermining No -Classification - Thickness -Change in Wound Grade/Stage -Exudate Amt Medium -Exudate Type Serosanguineous -Wound Margin Flat & Intact -Granulation Amt Large (67-100%) -Granulation Quality [place] -Slough/Fibrin Yes -Necrosis Amt None Present (0 %) -Necrotic Tissue Type Adherent Slough -Structure Exposed N/A -Texture (Verónica-wound Skin Appearance) Assessed, Localized Edema ,Scarring -Moisture (Verónica-wound Skin Appearance) Assessed,Dry/ Scaly -Color (Verónica-wound Skin Appearance) Assessed, Hemosiderin Staining -Temperature (Verónica-wound Skin No Abnormality Appearance) (Pt Warm) -Tenderness on Palpation (Verónica-wound No Skin Appearance) -Ulcer Cleansing Soap and Water -Foul Odor after Cleansing No -Anesthetic Used 5% Lidocaine Gel Lower Limb Edema Present No Left Calf (cm) 46.0 Left Ankle (cm) 22.5 WC - Nurse 2 - General Ulcer CM Notes Start: 05/24/22 09:31 Freq: Status: Active Protocol: Activity Type Activity Date Activity User E-sign Co-sign Detail Recorded Client Recorded Date Recorded By Document 05/24/22 09:53 MW [id number] 05/24/22 09:56 MW Document 05/31/22 10:32 JF [id number] 05/31/22 10:33 JF Edit Result 05/31/22 10:32 JF (1) [id number] 05/31/22 10:59 JF Document 06/07/22 11:06 [id number] 06/07/22 11:08 JF Document 06/14/22 09:42 [id number] 06/14/22 09:44 JF (1) #4 Left Perera - Time => 10:58 - Correct Patient => Yes - Correct Side, Site, Position => Yes - Correct Procedure => Yes - Procedure Performed => Yes - Type of Procedure => Debridement - Clinical Debridement => Subcutaneous - Tissue Removed => Subcutaneous - Post Debridement (cm) - Length => 3.0 - Post Debridement (cm) - Width => 0.8 - Post Debridement (cm) - Depth => 0.1 - Total Square (Post) (cm) => 2.40 - Area of Debridement (cm) - Length => 3.0 - Area of Debridement (cm) - Width => 0.8 - Total Square (Area) (cm) => 2.40 - Tunneling => No - Undermining/Tunneling => No - Circular Undermining => No - Wound/Ulcer Outcome => Not Healed - Ulcer Cleansing => Rinsed/Irrigated => with Saline - Foul Odor after Cleansing => No - Bioengineered Tissue => No - Bleeding Controlled with => Pressure - Treatment Response => Procedure => Tolerated Well - Offloading => No - Debridement - Subq, 1st 20sq cm => Yes 05/24/22 05/31/22 06/07/22 09:53 10:32 11:06 Wound Center Nurse 2 6-right medial lower leg -Time 09:53 -Correct Patient Yes No -Correct Side, Site, Position Yes No -Correct Procedure Yes No -Procedure Performed Yes No -Type of Procedure Debridement -Clinical Debridement Subcutaneous -Tissue Removed Subcutaneous -Post Debridement (cm) - Length 3.2 0 -Post Debridement (cm) - Width 1.0 0 -Post Debridement (cm) - Depth 0.1 0 -Total Square (Post) (cm) 3.20 0 -Area of Debridement (cm) - Length 3.2 0 -Area of Debridement (cm) - Width 1.0 0 -Total Square (Area) (cm) 3.20 0 -Tunneling No -Undermining/Tunneling No -Circular Undermining No -Wound/Ulcer Outcome Not Healed Healed- Epithelialized -Ulcer Cleansing Rinsed/ Irrigated with Saline -Foul Odor after Cleansing No -Bioengineered Tissue No -Bleeding Controlled with Pressure -Treatment Response Procedure Tolerated Well -Offloading No -Debridement - Subq, 1st 20sq cm Yes #4 Left Perera -Time 10:58 11:07 -Correct Patient Yes Yes -Correct Side, Site, Position Yes Yes -Correct Procedure Yes Yes -Procedure Performed Yes Yes -Type of Procedure Debridement Debridement -Clinical Debridement Subcutaneous Subcutaneous -Tissue Removed Subcutaneous Subcutaneous -Post Debridement (cm) - Length 3.0 4.5 -Post Debridement (cm) - Width 0.8 1.0 -Post Debridement (cm) - Depth 0.1 0.1 -Total Square (Post) (cm) 2.40 4.50 -Area of Debridement (cm) - Length 3.0 4.5 -Area of Debridement (cm) - Width 0.8 1.0 -Total Square (Area) (cm) 2.40 4.50 -Tunneling No No -Undermining/Tunneling No No -Circular Undermining No No -Wound/Ulcer Outcome Not Healed Not Healed -Ulcer Cleansing Rinsed/ Rinsed/ Irrigated with Irrigated with Saline Saline -Foul Odor after Cleansing No No -Bioengineered Tissue No No -Bleeding Controlled with Pressure Pressure -Treatment Response Procedure Procedure Tolerated Well Tolerated Well -Offloading No No -Debridement - Subq, 1st 20sq cm Yes Yes Pain Scale: 0-10 Numeric Is Patient Pain Free? Yes Yes Yes 06/14/22 09:42 Wound Center Nurse 2 6-right medial lower leg -Time -Correct Patient -Correct Side, Site, Position -Correct Procedure -Procedure Performed -Type of Procedure -Clinical Debridement -Tissue Removed -Post Debridement (cm) - Length -Post Debridement (cm) - Width -Post Debridement (cm) - Depth -Total Square (Post) (cm) -Area of Debridement (cm) - Length -Area of Debridement (cm) - Width -Total Square (Area) (cm) -Tunneling -Undermining/Tunneling -Circular Undermining -Wound/Ulcer Outcome -Ulcer Cleansing -Foul Odor after Cleansing -Bioengineered Tissue -Bleeding Controlled with -Treatment Response -Offloading -Debridement - Subq, 1st 20sq cm #4 Left Perera -Time 09:42 -Correct Patient Yes -Correct Side, Site, Position Yes -Correct Procedure Yes -Procedure Performed Yes -Type of Procedure Debridement -Clinical Debridement Subcutaneous -Tissue Removed Subcutaneous -Post Debridement (cm) - Length 2 -Post Debridement (cm) - Width 1.8 -Post Debridement (cm) - Depth 0.1 -Total Square (Post) (cm) 3.6 -Area of Debridement (cm) - Length 2.0 -Area of Debridement (cm) - Width 1.8 -Total Square (Area) (cm) 3.60 -Tunneling No -Undermining/Tunneling No -Circular Undermining No -Wound/Ulcer Outcome Not Healed -Ulcer Cleansing Rinsed/ Irrigated with Saline -Foul Odor after Cleansing No -Bioengineered Tissue No -Bleeding Controlled with Pressure -Treatment Response Procedure Tolerated Well -Offloading No -Debridement - Subq, 1st 20sq cm Yes Pain Scale: 0-10 Numeric Is Patient Pain Free? Yes WC - Nurse 3 - General Ulcer D/C NN Start: 05/24/22 09:31 Freq: Status: Active Protocol: Activity Type Activity Date Activity User E-sign Co-sign Detail Recorded Client Recorded Date Recorded By Document 05/24/22 10:05 [id number] 05/24/22 10:06 MW Document 05/31/22 10:52 AK [id number] 05/31/22 10:57 AK Document 06/07/22 11:18 [facility] [id number] 06/07/22 11:19 [facility] 05/24/22 05/31/22 06/07/22 10:05 10:52 11:18 Wound Care Nurse 3 6-right medial lower leg -Ulcer Cleansing Rinsed/ Irrigated with Saline -Foul Odor after Cleansing No -Negative Pressure Wound Therapy N/A -Primary Dressing Applied [place] -Primary Dressing Covered/Secured with Dry Gauze -[place] 1 #4 Left Perera -Ulcer Cleansing Rinsed/ Rinsed/ Irrigated with Irrigated with Saline Saline -Foul Odor after Cleansing No No -Negative Pressure Wound Therapy N/A -Primary Dressing Applied Silvercel Silvercel -Primary Dressing Covered/Secured with Dry Gauze Dry Gauze -Other Covering 3m/drsg 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 Yes Yes Yes Teaching: Wound Center Dressing Your Wound -Person Taught Patient -Teaching Method Discussion, Demonstration -Response to teaching Verbalize understanding WC - Visit Discharge Discharge Condition Stable Stable Stable Ambulatory Status Cane Ambulatory Ambulatory Transportation Private Auto Private Auto Accompanied by self Medication Reconcilliation completed & No Yes provided to patient/care provider Clinical Summary of Care Provided Yes Yes Facility Type Home Health 05/31/22 10:56 Wound Center by Moses Morse Pt took off 3m because of painful ulcer. She came in with silvestre wraps and asked for silvestre wraps as she was leaving. I sent them home with her since hers were thrown away Initialized on 05/31/22 10:56 - END OF NOTE Assessment/Plan Assessment/Plan (1) Non-pressure chronic ulcer of left calf with fat layer exposed: CODE(S): L97.222 - Non-pressure chronic ulcer of left calf with fat layer exposed PLAN: Patient examined and evaluated, all findings discussed with patient in detail. Wound reoccurred due to poorly controlled edema. Patient unable to pay for [place] or juxta lite wraps. Patient failed compression stockings. Counseled patient to order Tubigrip on [employer]. Wound excisionally debrided down to including level of subcutaneous tissue of all nonviable tissue using 5 mm dermal curette after obtaining oral consent hemostasis obtained with light compression no anesthesia used. Patient tolerated procedure well. Pre and postdebridement measurements document nursing notes. This was at the level of the left anterior leg. No signs of infection at this time we will plan for silver alginate with DSD and Tubigrip dressing changed by home health care once a week. Patient will follow up in 1 week. She will continue compression elevation exercise for edema management and follow-up in 1 week. (2) Other specified peripheral vascular diseases: CODE(S): I73.89 - Other specified peripheral vascular diseases
== END 2022-06-19 23:59 | disposition home or self-care (01) ==
LOC: WC 09:30
PROVIDERS: PCP Internal Medicine; Visit Provider Podiatrist
DX: L97.222 Non-pressure chronic ulcer of left calf with fat layer exposed (principal); I73.89 Other specified peripheral vascular diseases
CPT/HCPCS: 11042; 29581

== ENCOUNTER 2022-06-24 12:26 | Emergency (ER) | payer MEDICAID, SELFPAY ==
[2022-06-24 12:27] VITALS: BP 129/87; PULSE 72; RESP 14; TEMP 36; O2SAT 94; BMI 47.7
--- NOTE | 2022-06-24 12:45 | ED.RN ---
PT. CURRENTLY TALKING ON CELL PHONE. FATHER WITH PT. SPEECH CLEAR, ALERT AND ORINTED X4.
--- NOTE | 2022-06-24 14:07 | CT_ITS ---
INDICATION: trauma/fall EXAMINATION: CT BRAIN - CT Head or Brain W/O Contrast Injection TECHNIQUE: Multiple axial images were obtained of the head without intravenous contrast. A radiation dose optimization technique was used for this scan. IV Contrast dosage and agent: None. COMPARISON: 02/08/2022 FINDINGS: BRAIN PARENCHYMA: Left frontal scalp subcutaneous soft tissue hematoma visualized extending inferiorly into the superior portion of the left preseptal space, the left globe is unremarkable, no evidence of left post septal soft tissue prominence of stranding. No evidence of skull fracture is seen. No intra- or extra-axial hemorrhage. No evidence of acute infarct. No intracranial mass or mass effect. There is preservation of the montoya/white matter interface. Posterior fossa structures are unremarkable. CSF SPACES: Appropriate for age. No hydrocephalus. Basal cisterns are patent. CALVARIUM, SKULL BASE, PARANASAL SINUSES AND MASTOID AIR CELLS: Clear. No discrete lytic or blastic abnormalities. ORBITS: Both globes, extraocular muscles, optic nerves and retrobulbar fat appear unremarkable. ASPECTS Score for Acute Strokes: 10 CT/Brain/Head without Contrast IMPRESSION: Left frontal scalp subcutaneous soft tissue. No evidence of skull fracture is seen. No evidence of acute intracranial pathology is seen. Electronically Signed: King Elias MD at 15:18 EDT Reading Location ID and State: [facility] / [place] Tel , Service support ,
--- NOTE | 2022-06-24 14:08 | EDS_ITS ---
HPI HPI - Fall History of Present Illness Chief Complaint: Fall Informant: patient Occured/Mechanism Occurred: Today Mechanism/Context: Yes trip Fall down steps #: 1 Usually ambulates: Without assistance Pain/Injury Location: left forehead, left elbow, L hand Quality of Pain: - (sore) Current Severity: Moderate Maximum Severity: Moderate Worsened by: palpation Relieved by: leaving alone Associated Symptoms Associated Symptoms: Negative for Parasthesias, Weakness, Loss of function, Inability to ambulate, Loss of consciousness or Amnesia Narrative Narrative: Patient states she was coming down a set of steps and did not realize there was 1 more and missed it, causing her to trip and fall to the pavement 1 step below, main area of injury is her forehead. There is no loss of consciousness or amnesia or confusion or neurologic symptoms peripherally, or changes in her vision. She has no eye pain, but the swelling in her forehead is starting to affect her upper eyelid. She is on aspirin daily but no anticoagulants. No other antiplatelets. She scraped her left elbow it is sore but she can move it without any difficulty, and scraped her left hand palm. Tetanus Immunization: 5-10 years [facility] Medical History ADHD (attention deficit hyperactivity disorder) Arthritis Asthma Back pain Benign hypertension Bipolar disorder Chest pain COPD (chronic obstructive pulmonary disease) Depression Diabetes Diabetes mellitus type 2, uncontrolled, with complications Essential hypertension Fatigue GERD (gastroesophageal reflux disease) Hemorrhoids Knee pain Migraines Obstructive sleep apnea Open wound of left lower extremity Pain syndrome, chronic PTSD (post-traumatic stress disorder) Schizo affective schizophrenia Stasis dermatitis of both legs Super obese Venous insufficiency of both lower extremities Home Medications bupropion HCl 300 mg 24 hr tablet, extended release 450 mg PO DAILY mental health 03/05/17 [History Last Taken 07/07/18] valacyclovir 1 gram tablet 500 mg PO DAILY other 02/18/18 [History Last Taken 04/17/18] albuterol sulfate 90 mcg/actuation aerosol inhaler 2 puff inhalation Q4H PRN PRN Sob &/Or Wheezing 05/29/18 [History Last Taken 07/07/18] glimepiride 2 mg tablet 4 mg PO BID diabetes 09/20/18 [History Last Taken Unknown] pregabalin 75 mg capsule 100 mg PO TID fibromyalgia 10/14/18 [History Last Taken Unknown] dicyclomine 10 mg capsule 20 mg PO TIDAC #20 caps 07/28/19 [Rx Last Taken Unknown] escitalopram oxalate 10 mg tablet 20 mg PO DAILY mental health 08/04/19 [History Last Taken Unknown] fluticasone propionate 50 mcg/actuation nasal spray,suspension 2 spray NASAL DAILY allergies 08/04/19 [History Last Taken Unknown] ondansetron 4 mg disintegrating tablet 4 mg PO Q8H PRN PRN Nausea 09/22/19 [History Last Taken Unknown] tizanidine 4 mg capsule 4 mg PO BID PRN Muscle Spasm 07/15/20 [History Last Taken Unknown] aspirin 81 mg chewable tablet 81 mg PO DAILY@0800 07/17/20 [Rx Last Taken Unknown] nadolol 80 mg tablet 80 mg PO BID high blood pressure 07/08/21 [History Last Taken Unknown] buspirone 10 mg tablet 20 mg PO TID 01/25/22 [History Last Taken Unknown] cetirizine 10 mg tablet (Zyrtec) 10 mg PO DAILY 01/25/22 [History Last Taken Unknown] colchicine 0.6 mg tablet 0.6 mg PO DAILY 01/25/22 [History Last Taken Unknown] fluconazole 150 mg tablet 150 mg PO DAILY 01/25/22 [History Last Taken Unknown] guaifenesin 600 mg tablet, extended release 12 hr (Mucinex) 1,200 mg PO BID PRN Cough 01/25/22 [History Last Taken Unknown] hydroxyzine pamoate 25 mg capsule (Vistaril) 25 - 75 mg PO BID PRN Itching 01/25/22 [History Last Taken Unknown] hyoscyamine sulfate 0.125 mg tablet (Levsin) 0.125 mg PO Q6H PRN IBS 01/25/22 [History Last Taken Unknown] ketorolac 10 mg tablet 10 mg PO Q6H PRN SEVERE HEADACHE 01/25/22 [History Last Taken Unknown] lactulose 10 gram/15 mL oral solution 1 - 3 PO BID PRN Constipation 01/25/22 [History Last Taken Unknown] lidocaine 4 % topical cream 1 applic topical TID PRN Pain 01/25/22 [History Last Taken Unknown] lisinopril 20 mg tablet 10 mg PO BID 01/25/22 [History Last Taken Unknown] lorazepam 0.5 mg tablet (Ativan) 0.5 - 1 mg PO BID PRN Panic Attack(S) 01/25/22 [History Last Taken Unknown] naratriptan 2.5 mg tablet (Amerge) 2.5 mg PO Q4H PRN Headache 01/25/22 [History Last Taken Unknown] primidone 250 mg tablet 250 mg PO BID 01/25/22 [History Last Taken Unknown] tramadol 50 mg tablet 50 - 100 mg PO Q6H PRN Pain 01/25/22 [History Last Taken Unknown] trazodone 50 mg tablet 150 mg PO QHS 01/25/22 [History Last Taken Unknown] triamcinolone acetonide 0.1 % topical cream 1 applic topical TID PRN Rash 01/25/22 [History Last Taken Unknown] fluticasone 500 mcg-salmeterol 50 mcg/dose blistr powdr for inhalation 1 inh inhalation BID 05/02/22 [History Last Taken Unknown] insulin glargine 100 unit/mL (3 mL) subcutaneous pen (Lantus Solostar U-100 Insulin) 43 unit subcut QHS 05/02/22 [History Last Taken Unknown] omeprazole 40 mg capsule,delayed release 40 mg PO DAILY 05/02/22 [History Last Taken Unknown] oxybutynin chloride 10 mg tablet,extended release 24 hr 20 mg PO DAILY 05/02/22 [History Last Taken Unknown] paliperidone palmitate 117 mg/0.75 mL intramuscular syringe (Invega Sustenna) 117 mg IM [id number] 05/02/22 [History Last Taken Unknown] Allergy/AdvReac Type Severity Reaction Status Date / Time vancomycin Allergy Severe BURNING Verified 06/24/22 12:30 RED RASH ON LEGGS amlodipine [From Norvasc] Allergy Swelling Verified 06/24/22 12:30 cefazolin sodium [From Ancef] Allergy Hives Verified 06/24/22 12:30 fexofenadine [From Nia] Allergy Shortness Verified 06/24/22 12:30 of breath nitrofurantoin Allergy Hives Verified 06/24/22 12:30 [From Macrobid] peanut Allergy Shortness Verified 06/24/22 12:30 of breath Penicillins Allergy Hives Verified 06/24/22 12:30 sumatriptan [From Imitrex] Allergy Shortness Verified 06/24/22 12:30 of breath amitriptyline [From Elavil] AdvReac Other Verified 06/24/22 12:30 clindamycin AdvReac Diarrhea Verified 06/24/22 12:30 ziprasidone [From Geodon] AdvReac NEEDS Verified 06/24/22 12:30 FOLLOW-UP duoderm AdvReac Other Uncoded 06/24/22 12:30 Family History Father CVA (cerebral vascular accident) Heart disease Mother Heart disease Surgical History H/O hernia repair History of arthroscopic knee surgery History of elbow surgery (~06/2020) History of left heart catheterization (07/16/20) Hx of section Hx of hysterectomy Kidney stone Social History household members: spouse Smoking Status: Never smoker alcohol intake: current alcohol intake frequency: holidays/special occasions only Alcohol type: wine substance use type: does not use caffeine: Yes (occasionally) ROS ROS ED Constitutional Constitutional ED: Denies chills or fever(s) Eyes Eyes: Denies change in vision or diplopia ENT ENT ED: Denies ear pain, epistaxis, facial pain or rhinorrhea Cardiovascular Cardiovascular: Denies chest pain or palpitations Respiratory/Chest Respiratory/Chest: Denies cough or dyspnea Gastrointestinal Gastrointestinal: Denies abdominal pain, diarrhea, melena, nausea or vomiting Genitourinary Genitourinary ED: Denies dysuria or hematuria Musculoskeletal Musculoskeletal: Reports extremity pain; Denies back pain or neck pain Integumentary Reports Abrasions; Denies abscess, laceration or rash Neurologic Neurologic: Reports headache(s); Denies confusion, paresthesias or weakness EXAM Physical Exam Const Vital Signs: 06/24/22 12:27 06/24/22 14:15 06/24/22 14:17 Temperature 96.8 F L Temperature Source Temporal Pulse Rate 72 65 Respiratory Rate 14 16 Respiratory Effort Normal Non-Labored Blood Pressure 129/87 H 113/58 L Blood Pressure Mean 101 76 Pulse Ox 94 93 Oxygen Delivery Method Room Air Room Air Room Air Positive well nourished, well developed and obese General Appearance ED: well developed and NAD Nutritional Appearance: obese HEENT Reports TM's clear and nasal mucous membranes and turbinates normal HEENT Narrative: Large left forehead hematoma and tenderness that progresses down around the superior orbital brim, which has no crepitance or deformity, and the upper eyelid. The eye itself appears to be atraumatic. Midface nontender and stable. No zygomatic tenderness. No otorhinorrhea. Face and Sinus: facial tenderness Tympanic Membrane ED: Yes TM's clear Eyes PERRL and EOMs intact bilaterally Eyes Narrative: No proptosis or enophthalmos or evidence of globe trauma. Visual Acuity: other Other Details: no entrapment or pain with extraocular movements Neck full ROM and supple General: Negative for tenderness Chest Wall inspection of chest normal and palpation of chest normal Chest: symmetrical chest wall rise; Negative for crepitus or tenderness Resp normal respiratory effort and clear to auscultation bilaterally Percussion: other equal BS bilat Cardio no murmurs Rate: regular rate Rhythm: regular rhythm GI normal to inspection, nondistended, normoactive bowel sounds, soft to palpation and non-tender Back/Spine normal ROM Cervical Spine: Negative for cervical spine tenderness Thoracic Spine / Upper Back: Negative for thoracic spinal tenderness Lumbar Spine / Lower Back: Negative for lumbar spinal tenderness Extremity normal to inspection and full ROM Extremity Narrative: No bony tenderness left elbow, full range of motion extensor mechanism intact. Painless pronation and supination. General Extremety ED: Negative for tenderness Neuro oriented x3, CN's II-XII intact bilaterally, moves all extremities, no focal motor deficits and no sensory deficits noted Dennise Coma Scale: document GCS findings Spontaneous Obeys Commands Oriented 15 Sensorium / Orientation: awake and alert Psych mental status grossly normal and thought process normal Skin Skin Narrative: Abrasion to the base of the left palm superficial, deeper abrasion to the olecranon process of the left elbow, no lacerations or need for repair. Lesions: no lesions Rashes: no rashes MDM MDM MDM Narrative Medical decision making narrative: CT of the head was obtained, negative for anything acute intracranial. Patient is reassured, given Tylenol for pain, given appropriate discharge instructions. Radiography Diagnostic Testing: Clinical Impression(s) from Imaging Studies Brain CT 06/24/22 14:07 IMPRESSION: Left frontal scalp subcutaneous soft tissue. No evidence of skull fracture is seen. No evidence of acute intracranial pathology is seen. Electronically Signed: King Elias MD at 15:18 EDT , Discharge Plan Triage Chief Complaint: Fall ED Provider: Gurpreet Booen Dx/Rx/DC Orders Clinical Impression: Closed head injury without loss of consciousness, Traumatic hematoma of forehead, Abrasion of elbow, left, Fall down steps Instructions: ED Abrasion, ED Head Injury (Adult) Prescriptions: No Action valacyclovir 1 gram tablet 500 mg PO DAILY omeprazole 40 mg capsule,delayed release(DR/EC) 40 mg PO DAILY oxybutynin chloride 10 mg tablet extended release 24hr 20 mg PO DAILY Invega Sustenna 117 mg/0.75 mL syringe 117 mg IM [id number] bupropion HCl 300 MG tablet extended release 24 hr 450 mg PO DAILY Label Comments: DEPRESSION albuterol sulfate 1 INHALER inhaler 2 puff INHALATION Q4H PRN PRN (Reason: Sob &/Or Wheezing) pregabalin 75 MG capsule 100 mg PO TID dicyclomine 10 MG capsule 20 mg PO TIDAC Qty: 20 0RF fluticasone propionate 1 SPRAY spray,suspension 2 spray NASAL DAILY escitalopram oxalate 10 MG tablet 20 mg PO DAILY ondansetron 4 MG tablet 4 mg PO Q8H PRN PRN (Reason: Nausea) tizanidine 4 MG capsule 4 mg PO BID PRN (Reason: Muscle Spasm) aspirin 81 MG tablet,chewable 81 mg PO DAILY@0800 0RF [place] Solroblesar U-100 Insulin 100 unit/mL (3 mL) insulin pen 43 unit SUBCUT QHS trazodone 50 mg Tablet 150 mg PO QHS cetirizine [Zyrtec] 10 mg Tablet 10 mg PO DAILY fluconazole 150 mg Tablet 150 mg PO DAILY lidocaine 4 % Cream 1 applic TOPICAL TID PRN (Reason: Pain) tramadol 50 mg Tablet 50 - 100 mg PO Q6H PRN (Reason: Pain) triamcinolone acetonide 0.1 % Cream 1 applic TOPICAL TID PRN (Reason: Rash) ketorolac 10 mg Tablet 10 mg PO Q6H PRN (Reason: SEVERE HEADACHE) primidone 250 mg Tablet 250 mg PO BID lorazepam [Ativan] 0.5 mg Tablet 0.5 - 1 mg PO BID PRN (Reason: Panic Attack(S)) hyoscyamine sulfate [Levsin] 0.125 mg Tablet 0.125 mg PO Q6H PRN (Reason: IBS) buspirone [BuSpar] 10 mg Tablet 20 mg PO TID colchicine 0.6 mg Tablet 0.6 mg PO DAILY naratriptan [Amerge] 2.5 mg Tablet 2.5 mg PO Q4H PRN (Reason: Headache) hydroxyzine pamoate [Vistaril] 25 mg Capsule 25 - 75 mg PO BID PRN (Reason: Itching) lactulose 10 gram/15 mL Solution 1 - 3 PO BID PRN (Reason: Constipation) guaifenesin [Mucinex] 600 mg Tablet Extended Release 12hr 1,200 mg PO BID PRN (Reason: Cough) lisinopril 20 MG tablet 10 mg PO BID fluticasone propion-salmeterol 500-50 mcg/dose blister with device 1 inh INHALATION BID glimepiride 2 mg tablet 4 mg PO BID Label Comments: BLOOD SUGAR nadolol 80 mg tablet 80 mg PO BID Label Comments: BLOOD PRESSURE Primary Care Provider: Cristal Wolf Referrals: Cristal Wolf MD [Primary Care Provider] - As Needed Disposition Disposition: Home, Self Care
[2022-06-24] MEDS: Acetaminophen 500 MG Tablet 1000 MG PO (14:13)
[2022-06-24 14:15] VITALS: BP 113/58; PULSE 65; RESP 16; O2SAT 93
[2022-06-24 16:47] VITALS: BP 114/72; PULSE 69; RESP 16; O2SAT 97
== END 2022-06-24 16:48 | disposition home or self-care (01) ==
PROVIDERS: Emergency Provider Emergency Medicine; PCP Internal Medicine; Visit Provider Emergency Medicine
DX: S50.312A Abrasion of left elbow, initial encounter (principal); J44.9 Chronic obstructive pulmonary disease, unspecified; E11.9 Type 2 diabetes mellitus without complications; S00.83XA Contusion of other part of head, initial encounter; I10 Essential (primary) hypertension; W10.9XXA Fall (on) (from) unspecified stairs and steps, initial encounter; S09.90XA Unspecified injury of head, initial encounter
CPT/HCPCS: 70450; 99284

== ENCOUNTER 2022-07-12 09:30 | Outpatient (RCR) | payer MEDICAID, SELFPAY ==
[2022-06-20 00:06] VITALS: BP 155/97; PULSE 73; RESP 18; TEMP 36.1; O2SAT 97
[2022-06-21 09:19] VITALS: BP 130/79; PULSE 83; RESP 20; TEMP 36.1
--- NOTE | 2022-06-21 09:41 | PCM.WC.PN ---
History of Present Illness Date of Service: 06/21/22 Chief Complaint: Follow-up for 3 open areas on her left lower leg anterior perera History of Wound: 50-year-old female presents for follow-up on chronic ulceration to left anterior leg. Patient's right leg ulceration has healed at this time. Patient denies any fever chills nausea vomiting chest pain calf pain shortness of breath. Patient denies any changes since her previous visit has been compliant with treatment. Objective Data Objective Data Vital Signs: Vital Signs Temp Pulse Resp BP Pulse Ox 96.9 F L 83 20 H 130/79 H 97 06/21/22 09:19 06/21/22 09:19 06/21/22 09:19 06/21/22 09:19 06/20/22 00:06 Physical Exam Narrative Patient is alert oriented to person place and time. Patient is ambulatory ambulates without assistance. Vascular: Dorsalis pedis posterior tibial pulses diminished to bilateral lower extremity. Atrophic changes noted to skin such as thinning shiny and taut appearance. Diminished hair growth noted to bilateral lower extremity. Capillary fill time is less than 5 seconds to the digits bilaterally. Neurologic light touch protective sensation diminished to bilateral lower extremity Dermatologic: Full-thickness wound at anterior left leg at previous site of ulceration. No evidence of deep probing or undermining. No evidence of infection at this time. Mild serous drainage noted. Pre and postdebridement measurements document nursing notes. Musculoskeletal: No pain to calf squeeze bilateral lower extremity muscular strength full to bilateral lower extremity compartments. No gross deformity contributing to wound formation at this time Debridement Note Debridement Note Post-Debridement Measurements and Additional Note: Post-Debridement Measurements/Treatment - Nurse 1 - General Ulcer Assessment Start: 06/21/22 09:19 Freq: Status: Active Protocol: WC.LOWEXT Activity Type Activity Date Activity User E-sign Co-sign Detail Recorded Client Recorded Date Recorded By Document 06/21/22 09:19 DL [id number] 06/21/22 09:22 DL 06/21/22 09:19 - Today's Visit Information Type of service Follow-up Visit (Physician/ENVIRONMENTAL COMMUNICATIONS SPECIALIST ) Arrival Mode Ambulatory Transfer Assistance None Patient Identification Verified (Name & Yes ) Patient Requires Transmission-Based No Precautions Finger Stick Blood Sugar(mg/dl) (if 132 indicated): Blood Sugar Stated by Patient Vital Signs Temperature (97.8 F-99.1 F) 96.9 F L Temperature Source Temporal Pulse Rate (60-100) 83 Pulse Location Monitor Respiratory Rate (12-18) 20 H Respiratory rate source Observation Blood Pressure (90/60-120/80) 130/79 H Blood Pressure Mean (mm Hg) 96 Source Monitor Pain Scale: 0-10 Numeric Is Patient Pain Free? Yes - Nurse 1 - General Ulcer Measurement Start: 06/21/22 09:19 Freq: Status: Active Protocol: Activity Type Activity Date Activity User E-sign Co-sign Detail Recorded Client Recorded Date Recorded By Document 06/21/22 09:19 DL [id number] 06/21/22 09:22 DL 06/21/22 09:19 Wound Center Nurse 1 #4 Left Perera -Current Size (cm) - Length 1 -Current Size (cm) - Width 0.7 -Current Size (cm) - Depth 0.1 -Total Square Cm 0.7 -Photo Taken No -Exudate Amt Small -Exudate Type Serosanguineous -Wound Margin Distinct, Outline Attached -Granulation Amt Large (67-100%) -Granulation Quality Red -Necrosis Amt Small (1-33%) -Necrotic Tissue Type Adherent Slough -Texture (Verónica-wound Skin Appearance) Scarring -Moisture (Verónica-wound Skin Appearance) Dry/Scaly -Color (Verónica-wound Skin Appearance) Hemosiderin Staining -Temperature (Verónica-wound Skin No Abnormality Appearance) (Pt Warm) -Tenderness on Palpation (Verónica-wound No Skin Appearance) -Ulcer Cleansing Soap and Water -Foul Odor after Cleansing No -Anesthetic Used 5% Lidocaine Gel Left Calf (cm) 45.7 Left Ankle (cm) 22.5 - Nurse 2 - General Ulcer CM Notes Start: 06/21/22 09:19 Freq: Status: Active Protocol: Activity Type Activity Date Activity User E-sign Co-sign Detail Recorded Client Recorded Date Recorded By Document 06/21/22 09:37 CARLOS [id number] 06/21/22 09:39 CARLOS 06/21/22 09:37 Wound Center Nurse 2 #4 Left Perera -Time 09:38 -Correct Patient Yes -Correct Side, Site, Position Yes -Correct Procedure Yes -Procedure Performed Yes -Type of Procedure Debridement -Clinical Debridement Subcutaneous -Tissue Removed Subcutaneous -Post Debridement (cm) - Length 1.1 -Post Debridement (cm) - Width 0.7 -Post Debridement (cm) - Depth 0.1 -Total Square (Post) (cm) 0.77 -Area of Debridement (cm) - Length 1.1 -Area of Debridement (cm) - Width 0.7 -Total Square (Area) (cm) 0.77 -Tunneling No -Undermining/Tunneling No -Circular Undermining No -Wound/Ulcer Outcome Not Healed -Ulcer Cleansing Rinsed/ Irrigated with Saline -Foul Odor after Cleansing No -Bioengineered Tissue No -Bleeding Controlled with Pressure -Treatment Response Procedure Tolerated Well -Offloading No -Debridement - Subq, 1st 20sq cm Yes Pain Scale: 0-10 Numeric Is Patient Pain Free? Yes Assessment/Plan Assessment/Plan (1) Non-pressure chronic ulcer of left calf with fat layer exposed: CODE(S): L97.222 - Non-pressure chronic ulcer of left calf with fat layer exposed PLAN: Patient examined and evaluated, all findings discussed with patient in detail. Wound reoccurred due to poorly controlled edema. Patient unable to pay for [employer] or [place] spigite wraps. Patient failed compression stockings. Counseled patient to order Tubigrip on Postling. Wound excisionally debrided down to including level of subcutaneous tissue of all nonviable tissue using 5 mm dermal curette after obtaining oral consent hemostasis obtained with light compression no anesthesia used. Patient tolerated procedure well. Pre and postdebridement measurements document nursing notes. This was at the level of the left anterior leg. No signs of infection at this time we will plan for silver alginate with DSD and Tubigrip dressing changed by home health care once a week. Patient will follow up in 1 week. She will continue compression elevation exercise for edema management and follow-up in 1 week. (2) Other specified peripheral vascular diseases: CODE(S): I73.89 - Other specified peripheral vascular diseases
[2022-07-05 09:17] VITALS: BP 137/98; PULSE 90; RESP 16; TEMP 36.2
--- NOTE | 2022-07-05 10:07 | PN.PCM_ITS ---
History of Present Illness Date of Service: 07/05/22 Chief Complaint: Follow-up for 3 open areas on her left lower leg anterior perera History of Wound: 50-year-old female presents for follow-up on chronic ulceration to left anterior leg. Patient's right leg ulceration has healed at this time. Patient denies any fever chills nausea vomiting chest pain calf pain shortness of breath. Patient denies any changes since her previous visit has been compliant with treatment. Objective Data Objective Data Vital Signs: Vital Signs Temp Pulse Resp BP Pulse Ox O2 Del Method 97.2 F L 90 16 137/98 H 97 Room Air 07/05/22 09:17 07/05/22 09:17 07/05/22 09:17 07/05/22 09:17 06/20/22 00:06 07/05/22 09:17 Oxygen Delivery Method Room Air Physical Exam Narrative Patient is alert oriented to person place and time. Patient is ambulatory ambulates without assistance. Vascular: Dorsalis pedis posterior tibial pulses diminished to bilateral lower extremity. Atrophic changes noted to skin such as thinning shiny and taut appearance. Diminished hair growth noted to bilateral lower extremity. Capillary fill time is less than 5 seconds to the digits bilaterally. Neurologic light touch protective sensation diminished to bilateral lower extremity Dermatologic: Full-thickness wound at anterior left leg at previous site of ulceration. No evidence of deep probing or undermining. No evidence of infection at this time. Mild serous drainage noted. Pre and postdebridement measurements document nursing notes. Musculoskeletal: No pain to calf squeeze bilateral lower extremity muscular strength full to bilateral lower extremity compartments. No gross deformity contributing to wound formation at this time Debridement Note Debridement Note Post-Debridement Measurements and Additional Note: Post-Debridement Measurements/Treatment - Nurse 1 - General Ulcer Assessment Start: 06/21/22 09:19 Freq: Status: Active Protocol: PERRY Activity Type Activity Date Activity User E-sign Co-sign Detail Recorded Client Recorded Date Recorded By Document 06/21/22 09:19 DL [id number] 06/21/22 09:22 DL Document 07/05/22 09:17 [facility] [id number] 07/05/22 09:23 BMF 06/21/22 07/05/22 09:19 09:17 - Today's Visit Information Type of service Follow-up Visit Follow-up Visit (Physician/UNDERGROUND CONDUIT INSTALLER (Physician/UNDERGROUND CONDUIT INSTALLER ) ) Arrival Mode Ambulatory Ambulatory Transfer Assistance None None Patient Identification Verified (Name & Yes Yes ) Patient Requires Transmission-Based No No Precautions Finger Stick Blood Sugar(mg/dl) (if 132 indicated): Blood Sugar Stated by Patient Vital Signs Temperature (97.8 F-99.1 F) 96.9 F L 97.2 F L Temperature Source Temporal Temporal Pulse Rate (60-100) 83 90 Pulse Location Monitor Monitor Respiratory Rate (12-18) 20 H 16 Respiratory rate source Observation Observation Oxygen Delivery Method Room Air Blood Pressure (90/60-120/80) 130/79 H 137/98 H Blood Pressure Mean (mm Hg) 96 111 Source Monitor Monitor Position Sitting Blood Pressure Location Left Arm History Since Last Visit- (Skip if this is Patient's initial visit) Have you changed medications since your No last visit? Any new allergies or adverse reactions No Had a fall/change in ADL's that may Yes increase risk of falls Signs or symptoms of abuse and/or No neglect since last visit Have you been in the hospital since your Yes last visit? Has dressing in place as prescribed Yes Has compression in place as prescribed Yes Has offloadiing in place as prescribed N/A Experienced any changes in pain level or No management Left Footwear Regular Shoe Right Footwear Regular Shoe Pain Scale: 0-10 Numeric Is Patient Pain Free? Yes Yes WC - Nurse 1 - General Ulcer Measurement Start: 06/21/22 09:19 Freq: Status: Active Protocol: Activity Type Activity Date Activity User E-sign Co-sign Detail Recorded Client Recorded Date Recorded By Document 06/21/22 09:19 [id number] 06/21/22 09:22 DL Document 07/05/22 09:17 [facility] [id number] 07/05/22 09:23 BM 06/21/22 07/05/22 09:19 09:17 Wound Center Nurse 1 #4 Left Perera -Combined with other wound No -Current Size (cm) - Length 1 1.1 -Current Size (cm) - Width 0.7 0.6 -Current Size (cm) - Depth 0.1 0.1 -Total Square Cm 0.7 0.66 -Date of Last Picture (Recall this 07/05/22 field) -Photo Taken No Yes -Epithelialization Small 1-33% -Tunneling No -Undermining/Tunneling No -Circular Undermining No -Exudate Amt Small Small -Exudate Type Serosanguineous Serosanguineous -Wound Margin Distinct, Flat & Intact Outline Attached -Granulation Amt Large (67-100%) Large (67-100%) -Granulation Quality Red Red -Slough/Fibrin Yes -Necrosis Amt Small (1-33%) Small (1-33%) -Necrotic Tissue Type Adherent Slough Adherent Slough -Texture (Verónica-wound Skin Appearance) Scarring Assessed, Scarring -Moisture (Verónica-wound Skin Appearance) Dry/Scaly Assessed,Dry/ Scaly -Color (Verónica-wound Skin Appearance) Hemosiderin Assessed, Staining Hemosiderin Staining -Temperature (Verónica-wound Skin No Abnormality No Abnormality Appearance) (Pt Warm) (Pt Warm) -Tenderness on Palpation (Verónica-wound No No Skin Appearance) -Ulcer Cleansing Soap and Water Rinsed/ Irrigated with Saline -Foul Odor after Cleansing No No -Anesthetic Used 5% Lidocaine 5% Lidocaine Gel Gel Lower Limb Edema Present Yes Left Calf (cm) 45.7 49.4 Left Ankle (cm) 22.5 22.4 WC - Nurse 2 - General Ulcer CM Notes Start: 06/21/22 09:19 Freq: Status: Active Protocol: Activity Type Activity Date Activity User E-sign Co-sign Detail Recorded Client Recorded Date Recorded By Document 06/21/22 09:37 [id number] 06/21/22 09:39 Document 07/05/22 09:46 [id number] 07/05/22 09:47 06/21/22 07/05/22 09:37 09:46 Wound Center Nurse 2 #4 Left Perera -Time 09:38 09:46 -Correct Patient Yes Yes -Correct Side, Site, Position Yes Yes -Correct Procedure Yes Yes -Procedure Performed Yes Yes -Type of Procedure Debridement Debridement -Clinical Debridement Subcutaneous Subcutaneous -Tissue Removed Subcutaneous Subcutaneous -Post Debridement (cm) - Length 1.1 1.2 -Post Debridement (cm) - Width 0.7 0.6 -Post Debridement (cm) - Depth 0.1 0.1 -Total Square (Post) (cm) 0.77 0.72 -Area of Debridement (cm) - Length 1.1 1.2 -Area of Debridement (cm) - Width 0.7 0.6 -Total Square (Area) (cm) 0.77 0.72 -Tunneling No No -Undermining/Tunneling No No -Circular Undermining No No -Wound/Ulcer Outcome Not Healed Not Healed -Ulcer Cleansing Rinsed/ Rinsed/ Irrigated with Irrigated with Saline Saline -Foul Odor after Cleansing No No -Bioengineered Tissue No No -Bleeding Controlled with Pressure Pressure -Treatment Response Procedure Procedure Tolerated Well Tolerated Well -Offloading No No -Debridement - Subq, 1st 20sq cm Yes Yes Pain Scale: 0-10 Numeric Is Patient Pain Free? Yes Yes - Nurse 3 - General Ulcer D/C NN Start: 06/21/22 09:19 Freq: Status: Active Protocol: Activity Type Activity Date Activity User E-sign Co-sign Detail Recorded Client Recorded Date Recorded By Document 07/05/22 09:54 [facility] [id number] 07/05/22 09:55 [facility] 07/05/22 09:54 Wound Care Nurse 3 #4 Left Perera -Ulcer Cleansing Rinsed/ Irrigated with Saline -Foul Odor after Cleansing No -Primary Dressing Applied Aquacel AG 2x2, NonAdherent Contact Layer -Primary Dressing Covered/Secured with Dry Gauze, Secured with Tape -Aquacel AG 2x2 1 Left -Tubular Bandage Double Layer -Size of Tubigrip Used Size E -Size E ($) 1 Treatment Response Procedure Tolerated Well Pain Scale: 0-10 Numeric Is Patient Pain Free? Yes - Visit Discharge Discharge Condition Stable Ambulatory Status Ambulatory Transportation Private Auto Assessment/Plan Assessment/Plan (1) Non-pressure chronic ulcer of left calf with fat layer exposed: CODE(S): L97.222 - Non-pressure chronic ulcer of left calf with fat layer exposed PLAN: Patient examined and evaluated, all findings discussed with patient in detail. Wound reoccurred due to poorly controlled edema. Patient unable to pay for Farrow or juxta lite wraps. Patient failed compression stockings. Counseled patient to order Tubigrip on [employer]. Wound excisionally debrided down to including level of subcutaneous tissue of all nonviable tissue using 5 mm dermal curette after obtaining oral consent hemostasis obtained with light compression no anesthesia used. Patient tolerated procedure well. Pre and postdebridement measurements document nursing notes. This was at the level of the left anterior leg. No signs of infection at this time we will plan for silver alginate with DSD and Tubigrip dressing changed by home health care once a week. Patient will follow up in 1 week. She will continue compression elevation exercise for edema management and follow-up in 1 week. (2) Other specified peripheral vascular diseases: CODE(S): I73.89 - Other specified peripheral vascular diseases
[2022-07-12 09:30] VITALS: BP 123/73; PULSE 82; TEMP 35.7
--- NOTE | 2022-07-12 09:51 | PCM.WC.PN ---
History of Present Illness Date of Service: 07/12/22 Chief Complaint: Follow-up for 3 open areas on her left lower leg anterior perera History of Wound: 50-year-old female presents for follow-up on chronic ulceration to left anterior leg. Patient's right leg ulceration has healed at this time. Patient denies any fever chills nausea vomiting chest pain calf pain shortness of breath. Patient denies any changes since her previous visit has been compliant with treatment. Objective Data Objective Data Vital Signs: Vital Signs Temp Pulse Resp BP Pulse Ox O2 Del Method 96.3 F L 82 16 123/73 H 97 Room Air 07/12/22 09:30 07/12/22 09:30 07/05/22 09:17 07/12/22 09:30 06/20/22 00:06 07/05/22 09:17 Oxygen Delivery Method Room Air Physical Exam Narrative Patient is alert oriented to person place and time. Patient is ambulatory ambulates without assistance. Vascular: Dorsalis pedis posterior tibial pulses diminished to bilateral lower extremity. Atrophic changes noted to skin such as thinning shiny and taut appearance. Diminished hair growth noted to bilateral lower extremity. Capillary fill time is less than 5 seconds to the digits bilaterally. Neurologic light touch protective sensation diminished to bilateral lower extremity Dermatologic: Full-thickness wound at anterior left leg at previous site of ulceration. No evidence of deep probing or undermining. No evidence of infection at this time. Mild serous drainage noted. Pre and postdebridement measurements document nursing notes. Musculoskeletal: No pain to calf squeeze bilateral lower extremity muscular strength full to bilateral lower extremity compartments. No gross deformity contributing to wound formation at this time Debridement Note Debridement Note Post-Debridement Measurements and Additional Note: Post-Debridement Measurements/Treatment - Nurse 1 - General Ulcer Assessment Start: 06/21/22 09:19 Freq: Status: Active Protocol: NILO.LOWRODRIGUEZ Activity Type Activity Date Activity User E-sign Co-sign Detail Recorded Client Recorded Date Recorded By Document 06/21/22 09:19 DL [id number] 06/21/22 09:22 DL Document 07/05/22 09:17 BMF [id number] 07/05/22 09:23 BMF Document 07/12/22 09:30 [place] [id number] 07/12/22 09:37 AK 06/21/22 07/05/22 07/12/22 09:19 09:17 09:30 - Today's Visit Information Type of service Follow-up Visit Follow-up Visit Follow-up Visit (Physician/COKE STILL CLEANER (Physician/COKE STILL CLEANER (Physician/COKE STILL CLEANER ) ) ) Arrival Mode Ambulatory Ambulatory Ambulatory Transfer Assistance None None Patient Identification Verified (Name & Yes Yes Yes ) Patient Requires Transmission-Based No No No Precautions Safety Precautions NA Finger Stick Blood Sugar(mg/dl) (if 132 indicated): Blood Sugar Stated by Patient Vital Signs Temperature (97.8 F-99.1 F) 96.9 F L 97.2 F L 96.3 F L Temperature Source Temporal Temporal Temporal Pulse Rate (60-100) 83 90 82 Pulse Location Monitor Monitor Monitor Respiratory Rate (12-18) 20 H 16 Respiratory rate source Observation Observation Oxygen Delivery Method Room Air Blood Pressure (90/60-120/80) 130/79 H 137/98 H 123/73 H Blood Pressure Mean (mm Hg) 96 111 89 Source Monitor Monitor Monitor Position Sitting Blood Pressure Location Left Arm History Since Last Visit- (Skip if this is Patient's initial visit) Have you changed medications since your No last visit? Any new allergies or adverse reactions No Had a fall/change in ADL's that may Yes increase risk of falls Signs or symptoms of abuse and/or No neglect since last visit Have you been in the hospital since your Yes last visit? Has dressing in place as prescribed Yes Has compression in place as prescribed Yes Has offloadiing in place as prescribed N/A Experienced any changes in pain level or No management Left Footwear Regular Shoe Right Footwear Regular Shoe Pain Scale: 0-10 Numeric Is Patient Pain Free? Yes Yes Yes - Nurse 1 - General Ulcer Measurement Start: 06/21/22 09:19 Freq: Status: Active Protocol: Activity Type Activity Date Activity User E-sign Co-sign Detail Recorded Client Recorded Date Recorded By Document 06/21/22 09:19 DL [id number] 06/21/22 09:22 DL Document 07/05/22 09:17 [facility] [id number] 07/05/22 09:23 BMF Document 07/12/22 09:30 [place] [id number] 07/12/22 09:37 AK 06/21/22 07/05/22 07/12/22 09:19 09:17 09:30 Wound Center Nurse 1 #4 Left Perera -Combined with other wound No No -Current Size (cm) - Length 1 1.1 0.1 -Current Size (cm) - Width 0.7 0.6 0.1 -Current Size (cm) - Depth 0.1 0.1 0.1 -Total Square Cm 0.7 0.66 0.01 -Date of Last Picture (Recall this 07/05/22 07/12/22 field) -Photo Taken No Yes Yes -Epithelialization Small 1-33% None Present -Tunneling No No -Undermining/Tunneling No No -Circular Undermining No No -Change in Wound Grade/Stage No -Exudate Amt Small Small Small -Exudate Type Serosanguineous Serosanguineous Serosanguineous -Wound Margin Distinct, Flat & Intact Distinct, Outline Outline Attached Attached -Granulation Amt Large (67-100%) Large (67-100%) None Present (0 %) -Granulation Quality Red Red N/A -Slough/Fibrin Yes No -Necrosis Amt Small (1-33%) Small (1-33%) None Present (0 %) -Necrotic Tissue Type Adherent Slough Adherent Slough -Structure Exposed N/A -Texture (Verónica-wound Skin Appearance) Scarring Assessed, Assessed, Scarring Scarring -Moisture (Verónica-wound Skin Appearance) Dry/Scaly Assessed,Dry/ No Abnormality, Scaly Assessed -Color (Verónica-wound Skin Appearance) Hemosiderin Assessed, No Abnormality, Staining Hemosiderin Assessed Staining -Temperature (Verónica-wound Skin No Abnormality No Abnormality No Abnormality Appearance) (Pt Warm) (Pt Warm) (Pt Warm) -Tenderness on Palpation (Verónica-wound No No No Skin Appearance) -Ulcer Cleansing Soap and Water Rinsed/ Rinsed/ Irrigated with Irrigated with Saline Saline -Foul Odor after Cleansing No No No -Anesthetic Used 5% Lidocaine 5% Lidocaine 5% Lidocaine Gel Gel Gel Lower Limb Edema Present Yes Left Calf (cm) 45.7 49.4 41 Left Ankle (cm) 22.5 22.4 22 WC - Nurse 2 - General Ulcer CM Notes Start: 06/21/22 09:19 Freq: Status: Active Protocol: Activity Type Activity Date Activity User E-sign Co-sign Detail Recorded Client Recorded Date Recorded By Document 06/21/22 09:37 [id number] 06/21/22 09:39 Document 07/05/22 09:46 [id number] 07/05/22 09:47 Document 07/12/22 09:48 [id number] 07/12/22 09:50 06/21/22 07/05/22 07/12/22 09:37 09:46 09:48 Wound Center Nurse 2 #4 Left Perera -Time 09:38 09:46 09:49 -Correct Patient Yes Yes Yes -Correct Side, Site, Position Yes Yes Yes -Correct Procedure Yes Yes Yes -Procedure Performed Yes Yes Yes -Type of Procedure Debridement Debridement Debridement -Clinical Debridement Subcutaneous Subcutaneous Subcutaneous -Tissue Removed Subcutaneous Subcutaneous Subcutaneous -Post Debridement (cm) - Length 1.1 1.2 1.5 -Post Debridement (cm) - Width 0.7 0.6 0.4 -Post Debridement (cm) - Depth 0.1 0.1 0.1 -Total Square (Post) (cm) 0.77 0.72 0.60 -Area of Debridement (cm) - Length 1.1 1.2 1.5 -Area of Debridement (cm) - Width 0.7 0.6 0.4 -Total Square (Area) (cm) 0.77 0.72 0.60 -Tunneling No No No -Undermining/Tunneling No No No -Circular Undermining No No No -Wound/Ulcer Outcome Not Healed Not Healed Not Healed -Ulcer Cleansing Rinsed/ Rinsed/ Rinsed/ Irrigated with Irrigated with Irrigated with Saline Saline Saline -Foul Odor after Cleansing No No No -Bioengineered Tissue No No No -Bleeding Controlled with Pressure Pressure Pressure -Treatment Response Procedure Procedure Procedure Tolerated Well Tolerated Well Tolerated Well -Offloading No No No -Debridement - Subq, 1st 20sq cm Yes Yes Yes Pain Scale: 0-10 Numeric Is Patient Pain Free? Yes Yes Yes WC - Nurse 3 - General Ulcer D/C NN Start: 06/21/22 09:19 Freq: Status: Active Protocol: Activity Type Activity Date Activity User E-sign Co-sign Detail Recorded Client Recorded Date Recorded By Document 07/05/22 09:54 [facility] [id number] 07/05/22 09:55 [facility] 07/05/22 09:54 Wound Care Nurse 3 #4 Left Perera -Ulcer Cleansing Rinsed/ Irrigated with Saline -Foul Odor after Cleansing No -Primary Dressing Applied Aquacel AG 2x2, NonAdherent Contact Layer -Primary Dressing Covered/Secured with Dry Gauze, Secured with Tape -Aquacel AG 2x2 1 Left -Tubular Bandage Double Layer -Size of Tubigrip Used Size E -Size E ($) 1 Treatment Response Procedure Tolerated Well Pain Scale: 0-10 Numeric Is Patient Pain Free? Yes WC - Visit Discharge Discharge Condition Stable Ambulatory Status Ambulatory Transportation Private Auto Assessment/Plan Assessment/Plan (1) Non-pressure chronic ulcer of left calf with fat layer exposed: CODE(S): L97.222 - Non-pressure chronic ulcer of left calf with fat layer exposed PLAN: Patient examined and evaluated, all findings discussed with patient in detail. Wound reoccurred due to poorly controlled edema. Patient unable to pay for Farrow or juxta lite wraps. Patient failed compression stockings. Counseled patient to order Tubigrip. Wound excisionally debrided down to including level of subcutaneous tissue of all nonviable tissue using 5 mm dermal curette after obtaining oral consent hemostasis obtained with light compression no anesthesia used. Patient tolerated procedure well. Pre and postdebridement measurements document nursing notes. This was at the level of the left anterior leg. No signs of infection at this time we will plan for silver alginate with DSD and Tubigrip dressing changed by home health care once a week. Patient will follow up in 1 week. She will continue compression elevation exercise for edema management and follow-up in 1 week. (2) Other specified peripheral vascular diseases: CODE(S): I73.89 - Other specified peripheral vascular diseases
== END 2022-07-20 23:59 | disposition home or self-care (01) ==
LOC: WC 09:30
PROVIDERS: PCP Internal Medicine; Visit Provider Podiatrist
DX: L97.222 Non-pressure chronic ulcer of left calf with fat layer exposed (principal); I73.89 Other specified peripheral vascular diseases
CPT/HCPCS: 11042

== ENCOUNTER 2022-07-26 13:25 | Outpatient (RCR) | payer MEDICAID, SELFPAY ==
[2022-07-21 00:12] VITALS: BP 123/73; PULSE 82; RESP 16; TEMP 35.7; O2SAT 97
[2022-07-26 13:14] VITALS: PULSE 79; RESP 20; TEMP 36.1
--- NOTE | 2022-07-26 13:33 | PN.PCM_ITS ---
History of Present Illness Date of Service: 07/26/22 Chief Complaint: Follow-up for 3 open areas on her left lower leg anterior perera History of Wound: 50-year-old female presents for follow-up on chronic ulceration to left anterior leg. Patient's right leg ulceration has healed at this time. Patient denies any fever chills nausea vomiting chest pain calf pain shortness of breath. Patient denies any changes since her previous visit has been compliant with treatment. Progress of Wound: This is a courtesy visit for Dr. Chang. Left anterior leg ulcer is healed today. Objective Data Objective Data Vital Signs: Vital Signs Temp Pulse Resp BP Pulse Ox 96.9 F L 79 20 H 123/73 H 97 07/26/22 13:14 07/26/22 13:14 07/26/22 13:14 07/21/22 00:12 07/21/22 00:12 Charges/Coding Visit Charges Office Visits / Consults: 93724 OV L3 Est Physical Exam Const alert, oriented x3 and no apparent distress HEENT normocephalic Resp normal respiratory effort Effort and Inspection: able to speak in complete sentences Cardio regular rate Cardio Narrative: Bilateral pedal pulses palpable. Skin Skin Narrative: Left leg has hemosiderin staining. Ulcer is healed today. Edema +1. Neuro oriented x3 Sensorium / Orientation: alert Psych affect normal Debridement Note Debridement Note No debridement was completed: No debridement was completed today Post-Debridement Measurements and Additional Note: Post-Debridement Measurements/Treatment WC - Nurse 1 - General Ulcer Assessment Start: 07/26/22 13:14 Freq: Status: Active Protocol: PERRY Activity Type Activity Date Activity User E-sign Co-sign Detail Recorded Client Recorded Date Recorded By Document 07/26/22 13:14 DL [id number] 07/26/22 13:17 DL 07/26/22 13:14 - Today's Visit Information Type of service Follow-up Visit (Physician/FAMILY SERVICES WORKER ) Arrival Mode Ambulatory Transfer Assistance None Patient Identification Verified (Name & Yes ) Patient Requires Transmission-Based No Precautions Vital Signs Temperature (97.8 F-99.1 F) 96.9 F L Temperature Source Temporal Pulse Rate (60-100) 79 Pulse Location Monitor Respiratory Rate (12-18) 20 H Respiratory rate source Observation History Since Last Visit- (Skip if this is Patient's initial visit) Have you changed medications since your No last visit? Any new allergies or adverse reactions No Had a fall/change in ADL's that may No increase risk of falls Signs or symptoms of abuse and/or No neglect since last visit Have you been in the hospital since your No last visit? Has dressing in place as prescribed Yes Has compression in place as prescribed Yes Has offloadiing in place as prescribed N/A Experienced any changes in pain level or No management Pain Scale: 0-10 Numeric Is Patient Pain Free? Yes WC - Nurse 1 - General Ulcer Measurement Start: 07/26/22 13:14 Freq: Status: Active Protocol: Activity Type Activity Date Activity User E-sign Co-sign Detail Recorded Client Recorded Date Recorded By Document 07/26/22 13:14 DL [id number] 07/26/22 13:17 DL 07/26/22 13:14 Wound Center Nurse 1 #4 Left Perera -Current Size (cm) - Length 0.5 -Current Size (cm) - Width 0.3 -Current Size (cm) - Depth 0.1 -Total Square Cm 0.15 -Photo Taken No -Exudate Amt None Present -Wound Margin Thickened -Granulation Amt None Present (0 %) -Granulation Quality Hart -Necrosis Amt Small (1-33%) -Necrotic Tissue Type Adherent Slough -Structure Exposed N/A -Texture (Verónica-wound Skin Appearance) Scarring -Color (Verónica-wound Skin Appearance) Hemosiderin Staining -Temperature (Verónica-wound Skin No Abnormality Appearance) (Pt Warm) -Tenderness on Palpation (Verónica-wound No Skin Appearance) -Ulcer Cleansing Rinsed/ Irrigated with Saline -Foul Odor after Cleansing No -Anesthetic Used 5% Lidocaine Gel Left Calf (cm) 45.6 Left Ankle (cm) 22.7 - Nurse 2 - General Ulcer CM Notes Start: 07/26/22 13:14 Freq: Status: Active Protocol: Activity Type Activity Date Activity User E-sign Co-sign Detail Recorded Client Recorded Date Recorded By Document 07/26/22 13:22 MW [id number] 07/26/22 13:28 MW 07/26/22 13:22 Wound Center Nurse 2 #4 Left Perera -Time 13:22 -Correct Patient Yes -Correct Side, Site, Position Yes -Correct Procedure Yes -Procedure Performed No -Post Debridement (cm) - Length 0 -Post Debridement (cm) - Width 0 -Post Debridement (cm) - Depth 0 -Total Square (Post) (cm) 0 -Wound/Ulcer Outcome Healed- Epithelialized Pain Scale: 0-10 Numeric Is Patient Pain Free? Yes Assessment/Plan Assessment/Plan (1) Non-pressure chronic ulcer of left calf with fat layer exposed: CODE(S): L97.222 - Non-pressure chronic ulcer of left calf with fat layer exposed PLAN: Patient examined and evaluated, all findings discussed with patient in detail. Wound reoccurred due to poorly controlled edema. Patient unable to pay for Farrow or juxta lite wraps. Patient failed compression stockings due to too difficult to get on. Measured legs today. Instructed patient to get double layer compression stockings of 10- 15 mmHg because they will be easier to get on but if you double layer them, then it gives you higher compression. Counseled patient to order Tubigrip. Will have patient place adaptic and gauze over her healed ulcer for a week to give it time for the scar tissue to strengthen. No signs of infection at this time we will plan for silver alginate with DSD and Tubigrip dressing changed by home health care once a week. Stressed the importance of compression to prevent the ulcers from reoccurring. Follow up as needed. (2) Other specified peripheral vascular diseases: CODE(S): I73.89 - Other specified peripheral vascular diseases
== END 2022-07-28 09:06 | disposition home or self-care (01) ==
LOC: WC 13:25
PROVIDERS: PCP Internal Medicine; Visit Provider Podiatrist
DX: Z09 Encounter for follow-up examination after completed treatment for conditions other than malignant neoplasm (principal); I73.89 Other specified peripheral vascular diseases
CPT/HCPCS: 99213; G0463

== ENCOUNTER 2022-07-27 08:12 | Emergency (ER) | payer MEDICAID, SELFPAY ==
[2022-07-27 08:13] VITALS: BP 144/96; PULSE 69; RESP 18; TEMP 36.6; O2SAT 99; BMI 48.2
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
== END 2022-07-27 09:36 | disposition home or self-care (01) ==
PROVIDERS: Emergency Provider Student in an Organized Health Care Education/Training Program; PCP Internal Medicine; Visit Provider Student in an Organized Health Care Education/Training Program
DX: K59.00 Constipation, unspecified (principal); J44.9 Chronic obstructive pulmonary disease, unspecified; E11.9 Type 2 diabetes mellitus without complications; I10 Essential (primary) hypertension; K21.9 Gastro-esophageal reflux disease without esophagitis; G47.33 Obstructive sleep apnea (adult) (pediatric); F32.A Depression, unspecified
CPT/HCPCS: 99282

== ENCOUNTER 2022-12-06 09:15 | Outpatient (RCR) | payer MEDICAID, SELFPAY ==
[2022-11-22 08:56] VITALS: BP 158/86; PULSE 87; RESP 18; TEMP 35.5; BMI 49.7
--- NOTE | 2022-11-22 09:48 | PN.PCM_ITS ---
History of Present Illness Date of Service: 11/22/22 Chief Complaint: Follow-up for 3 open areas on her left lower leg anterior perera History of Wound: 50-year-old female presents for follow-up on chronic ulceration to left anterior leg. these are new wounds today, but are recurrent from previous healed ulcerations. Patient has venous insufficiency and sleep in a a recliner without use of compression as she is unable to afford any devices. Patient denies pain or constitutional symptoms and has no other complaints. Objective Data Objective Data Vital Signs: Vital Signs Temp Pulse Resp BP O2 Del Method 95.9 F L 87 18 158/86 H Room Air 11/22/22 08:56 11/22/22 08:56 11/22/22 08:56 11/22/22 08:56 11/22/22 08:56 Oxygen Delivery Method Room Air Weight: 135.624 kg Body Mass Index (BMI) 49.7 Physical Exam Narrative Palpable DP/PT pulses 2/4 bilaterally. CFT brisk. +2 pitting edema joseph aterally. Light touch/protective sensation absent to bilateral feet. Wound at anterior tibial tuberosity and anteromedial ankle, full thickness wound mixed fibrogranular base. No signs of infection. No gross deformity. No pain with calf squeeze bilatrally. Muscular strength 5/5 to evertors, invertors, dorsiflexors and plantarflexors. Const alert and oriented x3 Debridement Note Debridement Note Post-Debridement Measurements and Additional Note: Post-Debridement Measurements/Treatment - Nurse 1 - General Ulcer Assessment Start: 11/22/22 08:54 Freq: Status: Active Protocol: PERRY Activity Type Activity Date Activity User E-sign Co-sign Detail Recorded Client Recorded Date Recorded By Document 11/22/22 08:56 [facility] [id number] 11/22/22 09:07 [facility] 11/22/22 08:56 - Today's Visit Information Type of service Initial Visit Arrival Mode Ambulatory Transfer Assistance None Patient Identification Verified (Name & Yes ) Patient Requires Transmission-Based No Precautions Height and Weight Height 5 ft 5 in Weight 135.624 kg Weight in Pounds 299.0 lbs Weight Measurement Method Stated by Patient Body Mass Index (BMI) 49.7 BMI Classification Obese BSA - Annette 2.35 Vital Signs Temperature (97.8 F-99.1 F) 95.9 F L Temperature Source Temporal Pulse Rate (60-100) 87 Respiratory Rate (12-18) 18 Respiratory rate source Observation Oxygen Delivery Method Room Air Blood Pressure (90/60-120/80) 158/86 H Blood Pressure Mean (mm Hg) 110 Source Monitor Position Sitting Blood Pressure Location Left Forearm History Since Last Visit- (Skip if this is Patient's initial visit) Left Footwear Regular Shoe Right Footwear Regular Shoe Pain Scale: 0-10 Numeric Is Patient Pain Free? Yes WC - Nurse 1 - General Ulcer Measurement Start: 11/22/22 08:54 Freq: Status: Active Protocol: Activity Type Activity Date Activity User E-sign Co-sign Detail Recorded Client Recorded Date Recorded By Document 11/22/22 08:56 [facility] [id number] 11/22/22 09:07 [facility] 11/22/22 08:56 Wound Center Nurse 1 #8- L MED LOWER PERERA -Combined with other wound No -Current Size (cm) - Length 0.4 -Current Size (cm) - Width 1.4 -Current Size (cm) - Depth 0.1 -Total Square Cm 0.56 -Date of Last Picture (Recall this 11/22/22 field) -Photo Taken Yes -Epithelialization None Present -Tunneling No -Undermining/Tunneling No -Circular Undermining No -Exudate Amt Small -Exudate Type Sanguineous -Wound Margin Distinct, Outline Attached -Granulation Amt Small (1-33%) -Granulation Quality Red -Slough/Fibrin Yes -Necrosis Amt Large (67-100%) -Necrotic Tissue Type Adherent Slough -Texture (Verónica-wound Skin Appearance) Assessed, Scarring -Moisture (Verónica-wound Skin Appearance) Assessed -Color (Verónica-wound Skin Appearance) Assessed -Temperature (Verónica-wound Skin No Abnormality Appearance) (Pt Warm) -Tenderness on Palpation (Verónica-wound No Skin Appearance) -Ulcer Cleansing Rinsed/ Irrigated with Saline -Foul Odor after Cleansing No -Anesthetic Used 5% Lidocaine Gel #7- L PERERA -Combined with other wound No -Current Size (cm) - Length 4.1 -Current Size (cm) - Width 3.3 -Current Size (cm) - Depth 0.2 -Total Square Cm 13.53 -Date of Last Picture (Recall this 11/22/22 field) -Photo Taken Yes -Epithelialization None Present -Tunneling No -Undermining/Tunneling No -Circular Undermining No -Exudate Amt Medium -Exudate Type Serosanguineous -Wound Margin Distinct, Outline Attached -Granulation Amt Small (1-33%) -Granulation Quality Red -Slough/Fibrin Yes -Necrosis Amt Large (67-100%) -Necrotic Tissue Type Adherent Slough -Texture (Verónica-wound Skin Appearance) Assessed, Scarring -Moisture (Verónica-wound Skin Appearance) Assessed -Color (Verónica-wound Skin Appearance) Assessed, Hemosiderin Staining -Temperature (Verónica-wound Skin No Abnormality Appearance) (Pt Warm) -Tenderness on Palpation (Verónica-wound No Skin Appearance) -Ulcer Cleansing Rinsed/ Irrigated with Saline -Foul Odor after Cleansing No -Anesthetic Used 5% Lidocaine Gel Lower Limb Edema Present Yes Left Calf (cm) 53.8 Left Ankle (cm) 24 WC - Nurse 2 - General Ulcer CM Notes Start: 11/22/22 08:54 Freq: Status: Active Protocol: Activity Type Activity Date Activity User E-sign Co-sign Detail Recorded Client Recorded Date Recorded By Document 11/22/22 09:27 [id number] 11/22/22 09:30 11/22/22 09:27 Wound Center Nurse 2 #8- L [facility] LOWER PERERA -Time 09:28 -Correct Patient Yes -Correct Side, Site, Position Yes -Correct Procedure Yes -Procedure Performed Yes -Type of Procedure Debridement -Clinical Debridement Subcutaneous -Tissue Removed Subcutaneous -Post Debridement (cm) - Length 0.5 -Post Debridement (cm) - Width 1.5 -Post Debridement (cm) - Depth 0.1 -Total Square (Post) (cm) 0.75 -Area of Debridement (cm) - Length 0.5 -Area of Debridement (cm) - Width 1.5 -Total Square (Area) (cm) 0.75 -Tunneling No -Undermining/Tunneling No -Circular Undermining No -Wound/Ulcer Outcome Not Healed -Ulcer Cleansing Rinsed/ Irrigated with Saline -Foul Odor after Cleansing No -Bioengineered Tissue No -Bleeding Controlled with Pressure -Treatment Response Procedure Tolerated Well -Offloading No -Debridement - Subq, 1st 20sq cm Yes #7- L PERERA -Time 09:29 -Correct Patient Yes -Correct Side, Site, Position Yes -Correct Procedure Yes -Procedure Performed Yes -Type of Procedure Debridement -Clinical Debridement Subcutaneous -Tissue Removed Subcutaneous -Post Debridement (cm) - Length 4.2 -Post Debridement (cm) - Width 3.3 -Post Debridement (cm) - Depth 0.2 -Total Square (Post) (cm) 13.86 -Area of Debridement (cm) - Length 4.2 -Area of Debridement (cm) - Width 3.3 -Total Square (Area) (cm) 13.86 -Tunneling No -Undermining/Tunneling No -Circular Undermining No -Wound/Ulcer Outcome Not Healed -Ulcer Cleansing Rinsed/ Irrigated with Saline -Foul Odor after Cleansing No -Bioengineered Tissue No -Treatment Response Procedure Tolerated Well -Offloading No -Debridement - Subq, 1st 20sq cm No Pain Scale: 0-10 Numeric Is Patient Pain Free? Yes - Nurse 3 - General Ulcer D/C NN Start: 11/22/22 08:54 Freq: Status: Active Protocol: Activity Type Activity Date Activity User E-sign Co-sign Detail Recorded Client Recorded Date Recorded By Document 11/22/22 09:45 DL [id number] 11/22/22 09:47 DL 11/22/22 09:45 Wound Care Nurse 3 #8- L MED LOWER PERERA -Ulcer Cleansing Soap and Water -Foul Odor after Cleansing No -Primary Dressing Applied Aquacel AG 4x4, NonAdherent Contact Layer -Primary Dressing Covered/Secured with Dry Gauze, Secured with Tape -Other Covering ABD -Aquacel AG 4x4 1 #7- L PERERA -Ulcer Cleansing Soap and Water -Foul Odor after Cleansing No -Primary Dressing Applied NonAdherent Contact Layer -Other Dressing Aqaucel AG -Primary Dressing Covered/Secured with Dry Gauze, Secured with Tape Left -Multi-Layered Wrap Application Multi-Layer Comp - Left ($) Treatment Response Procedure Tolerated Well Pain Scale: 0-10 Numeric Is Patient Pain Free? Yes WC - Visit Discharge Discharge Condition Stable Ambulatory Status Ambulatory Transportation Private [facility] Facility Type Home Health Orders Sent Yes Assessment/Plan Assessment/Plan (1) Non-pressure chronic ulcer of left calf with fat layer exposed: CODE(S): L97.222 - Non-pressure chronic ulcer of left calf with fat layer exposed PLAN: Patient examined and evaluated, all findings discussed with patient in detail. Wound reoccurred due to poorly controlled edema. Patient unable to pay for Farrow or juxta lite wraps or compression stockings. Wounds x2 to left leg were excisionally debrided down to and including level of subcutaneous tissue of all non-viable tissue without incident. Pre and post debridement measurements documented in nursing notes. Patient tolerated procedure well. topical anesthesia use. hemostasis applied with compression. Silver alginate, DSD, 3M compression wrap. Stressed the importance of compression, elevation and exercise to prevent the ulcers from reoccurring. Follow in 1 week. (2) Other specified peripheral vascular diseases: CODE(S): I73.89 - Other specified peripheral vascular diseases
[2022-11-29 09:24] VITALS: BP 179/94; PULSE 72; RESP 20; TEMP 36.4; BMI 49.7
--- NOTE | 2022-11-29 09:51 | PCM.WC.PN ---
History of Present Illness Date of Service: 11/29/22 Chief Complaint: Follow-up for 3 open areas on her left lower leg anterior perera History of Wound: Patient denies constitutionals, pain or signs of dvt. Notes she did void some urine on dressing and dressing was not changed, no other complaints. Objective Data Objective Data Vital Signs: Vital Signs Temp Pulse Resp BP O2 Del Method 97.5 F L 72 20 H 179/94 H Room Air 11/29/22 09:24 11/29/22 09:24 11/29/22 09:24 11/29/22 09:24 11/22/22 08:56 Oxygen Delivery Method Room Air Weight: 135.624 kg Body Mass Index (BMI) 49.7 Physical Exam Narrative Palpable DP/PT pulses 2/4 bilaterally. CFT brisk. +2 pitting edema bilaterally. Light touch/protective sensation absent to bilateral feet. Wound at anterior tibial tuberosity and anteromedial ankle, full thickness wound mixed fibrogranular base. No signs of infection. No gross deformity. No pain with calf squeeze bilatrally. Muscular strength 5/5 to evertors, invertors, dorsiflexors and plantarflexors. Const alert and oriented x3 Debridement Note Debridement Note Post-Debridement Measurements and Additional Note: Post-Debridement Measurements/Treatment - Nurse 1 - General Ulcer Assessment Start: 11/22/22 08:54 Freq: Status: Active Protocol: .LOWEXT Activity Type Activity Date Activity User E-sign Co-sign Detail Recorded Client Recorded Date Recorded By Document 11/22/22 08:56 [facility] [id number] 11/22/22 09:07 [facility] Document 11/29/22 09:24 DL [id number] 11/29/22 09:36 DL 11/22/22 11/29/22 08:56 09:24 - Today's Visit Information Type of service Initial Visit Follow-up Visit (Physician/HEAD ANIMAL TRAINER ) Arrival Mode Ambulatory Ambulatory Transfer Assistance None None Patient Identification Verified (Name & Yes Yes ) Patient Requires Transmission-Based No No Precautions Finger Stick Blood Sugar(mg/dl) (if 128 indicated): Blood Sugar Stated by Patient Height and Weight Height 5 ft 5 in Weight 135.624 kg Weight in Pounds 299.0 lbs Weight Measurement Method Stated by Patient Body Mass Index (BMI) 49.7 49.7 BMI Classification Obese Obese BSA - Annette 2.35 Vital Signs Temperature (97.8 F-99.1 F) 95.9 F L 97.5 F L Temperature Source Temporal Temporal Pulse Rate (60-100) 87 72 Pulse Location Monitor Respiratory Rate (12-18) 18 20 H Respiratory rate source Observation Observation Oxygen Delivery Method Room Air Blood Pressure (90/60-120/80) 158/86 H 179/94 H Blood Pressure Mean (mm Hg) 110 122 Source Monitor Monitor Position Sitting Blood Pressure Location Left Forearm History Since Last Visit- (Skip if this is Patient's initial visit) Have you changed medications since your No last visit? Any new allergies or adverse reactions No Had a fall/change in ADL's that may No increase risk of falls Signs or symptoms of abuse and/or No neglect since last visit Have you been in the hospital since your No last visit? Has dressing in place as prescribed Yes Has compression in place as prescribed Yes Has offloadiing in place as prescribed N/A Experienced any changes in pain level or No management Left Footwear Regular Shoe Right Footwear Regular Shoe Pain Scale: 0-10 Numeric Is Patient Pain Free? Yes Yes WC - Nurse 1 - General Ulcer Measurement Start: 11/22/22 08:54 Freq: Status: Active Protocol: Activity Type Activity Date Activity User E-sign Co-sign Detail Recorded Client Recorded Date Recorded By Document 11/22/22 08:56 [facility] [id number] 11/22/22 09:07 [facility] Document 11/29/22 09:24 DL [id number] 11/29/22 09:36 DL 11/22/22 11/29/22 08:56 09:24 Wound Center Nurse 1 #8- L MED LOWER PERERA -Combined with other wound No -Current Size (cm) - Length 0.4 0.7 -Current Size (cm) - Width 1.4 0.8 -Current Size (cm) - Depth 0.1 0.1 -Total Square Cm 0.56 0.56 -Date of Last Picture (Recall this 11/22/22 field) -Photo Taken Yes Yes -Epithelialization None Present -Tunneling No -Undermining/Tunneling No -Circular Undermining No -Exudate Amt Small Small -Exudate Type Sanguineous Serosanguineous -Wound Margin Distinct, Distinct, Outline Outline Attached Attached -Granulation Amt Small (1-33%) Large (67-100%) -Granulation Quality Red Pale,Remlap -Slough/Fibrin Yes -Necrosis Amt Large (67-100%) None Present (0 %) -Necrotic Tissue Type Adherent Slough -Structure Exposed N/A -Texture (Verónica-wound Skin Appearance) Assessed, Scarring Scarring -Moisture (Verónica-wound Skin Appearance) Assessed Dry/Scaly -Color (Verónica-wound Skin Appearance) Assessed Hemosiderin Staining -Temperature (Verónica-wound Skin No Abnormality No Abnormality Appearance) (Pt Warm) (Pt Warm) -Tenderness on Palpation (Verónica-wound No No Skin Appearance) -Ulcer Cleansing Rinsed/ Soap and Water Irrigated with Saline -Foul Odor after Cleansing No No -Anesthetic Used 5% Lidocaine 5% Lidocaine Gel Gel #7- L PERERA -Combined with other wound No -Current Size (cm) - Length 4.1 4.3 -Current Size (cm) - Width 3.3 2.8 -Current Size (cm) - Depth 0.2 0.1 -Total Square Cm 13.53 12.04 -Date of Last Picture (Recall this 11/22/22 field) -Photo Taken Yes Yes -Epithelialization None Present -Tunneling No -Undermining/Tunneling No -Circular Undermining No -Exudate Amt Medium Medium -Exudate Type Serosanguineous Serosanguineous -Wound Margin Distinct, Distinct, Outline Outline Attached Attached -Granulation Amt Small (1-33%) Small (1-33%) -Granulation Quality Red Remlap -Slough/Fibrin Yes -Necrosis Amt Large (67-100%) Large (67-100%) -Necrotic Tissue Type Adherent Slough Adherent Slough -Structure Exposed N/A -Texture (Verónica-wound Skin Appearance) Assessed, Scarring Scarring -Moisture (Verónica-wound Skin Appearance) Assessed Dry/Scaly -Color (Verónica-wound Skin Appearance) Assessed, Hemosiderin Hemosiderin Staining Staining -Temperature (Verónica-wound Skin No Abnormality No Abnormality Appearance) (Pt Warm) (Pt Warm) -Tenderness on Palpation (Verónica-wound No Skin Appearance) -Ulcer Cleansing Rinsed/ Irrigated with Saline -Foul Odor after Cleansing No -Anesthetic Used 5% Lidocaine 5% Lidocaine Gel Gel Lower Limb Edema Present Yes Left Calf (cm) 53.8 51 Left Ankle (cm) 24 22.5 - Nurse 2 - General Ulcer CM Notes Start: 11/22/22 08:54 Freq: Status: Active Protocol: Activity Type Activity Date Activity User E-sign Co-sign Detail Recorded Client Recorded Date Recorded By Document 11/22/22 09:27 [id number] 11/22/22 09:30 Document 11/29/22 09:43 [id number] 11/29/22 09:48 11/22/22 11/29/22 09:27 09:43 Wound Center Nurse 2 #8- L MED LOWER PERERA -Time 09:28 09:44 -Correct Patient Yes Yes -Correct Side, Site, Position Yes Yes -Correct Procedure Yes Yes -Procedure Performed Yes Yes -Type of Procedure Debridement Debridement -Clinical Debridement Subcutaneous Subcutaneous -Tissue Removed Subcutaneous Subcutaneous -Post Debridement (cm) - Length 0.5 0.8 -Post Debridement (cm) - Width 1.5 0.8 -Post Debridement (cm) - Depth 0.1 0.1 -Total Square (Post) (cm) 0.75 0.64 -Area of Debridement (cm) - Length 0.5 0.8 -Area of Debridement (cm) - Width 1.5 0.8 -Total Square (Area) (cm) 0.75 0.64 -Tunneling No No -Undermining/Tunneling No No -Circular Undermining No No -Wound/Ulcer Outcome Not Healed Not Healed -Ulcer Cleansing Rinsed/ Rinsed/ Irrigated with Irrigated with Saline Saline -Foul Odor after Cleansing No No -Bioengineered Tissue No No -Bleeding Controlled with Pressure Pressure -Treatment Response Procedure Procedure Tolerated Well Tolerated Well -Offloading No No -Debridement - Subq, 1st 20sq cm Yes Yes #7- L PERERA -Time 09: 09:46 -Correct Patient Yes Yes -Correct Side, Site, Position Yes Yes -Correct Procedure Yes Yes -Procedure Performed Yes Yes -Type of Procedure Debridement Debridement -Clinical Debridement Subcutaneous Subcutaneous -Tissue Removed Subcutaneous Subcutaneous -Post Debridement (cm) - Length 4.2 4.4 -Post Debridement (cm) - Width 3.3 2.8 -Post Debridement (cm) - Depth 0.2 0.1 -Total Square (Post) (cm) 13.86 12.32 -Area of Debridement (cm) - Length 4.2 4.4 -Area of Debridement (cm) - Width 3.3 2.8 -Total Square (Area) (cm) 13.86 12.32 -Tunneling No No -Undermining/Tunneling No No -Circular Undermining No No -Wound/Ulcer Outcome Not Healed Not Healed -Ulcer Cleansing Rinsed/ Rinsed/ Irrigated with Irrigated with Saline Saline -Foul Odor after Cleansing No No -Bioengineered Tissue No No -Bleeding Controlled with Pressure -Treatment Response Procedure Procedure Tolerated Well Tolerated Well -Offloading No No -Debridement - Subq, 1st 20sq cm No No Pain Scale: 0-10 Numeric Is Patient Pain Free? Yes Yes - Nurse 3 - General Ulcer D/C NN Start: 11/22/22 08:54 Freq: Status: Active Protocol: Activity Type Activity Date Activity User E-sign Co-sign Detail Recorded Client Recorded Date Recorded By Document 11/22/22 09:45 DL [id number] 11/22/22 09:47 DL 11/22/22 09:45 Wound Care Nurse 3 #8- L MED LOWER PERERA -Ulcer Cleansing Soap and Water -Foul Odor after Cleansing No -Primary Dressing Applied Aquacel AG 4x4, NonAdherent Contact Layer -Primary Dressing Covered/Secured with Dry Gauze, Secured with Tape -Other Covering ABD -Aquacel AG 4x4 1 #7- L PERERA -Ulcer Cleansing Soap and Water -Foul Odor after Cleansing No -Primary Dressing Applied NonAdherent Contact Layer -Other Dressing Aqaucel AG -Primary Dressing Covered/Secured with Dry Gauze, Secured with Tape Left -Multi-Layered Wrap Application Multi-Layer Comp - Left ($) Treatment Response Procedure Tolerated Well Pain Scale: 0-10 Numeric Is Patient Pain Free? Yes WC - Visit Discharge Discharge Condition Stable Ambulatory Status Ambulatory Transportation Private Auto Facility Type Home Health Orders Sent Yes Assessment/Plan Assessment/Plan (1) Non-pressure chronic ulcer of left calf with fat layer exposed: CODE(S): L97.222 - Non-pressure chronic ulcer of left calf with fat layer exposed PLAN: Patient examined and evaluated, all findings discussed with patient in detail. Wound reoccurred due to poorly controlled edema. Patient unable to pay for Farrow or juxta lite wraps or compression stockings. Wounds x2 to left leg were excisionally debrided down to and including level of subcutaneous tissue of all non-viable tissue without incident. Pre and post debridement measurements documented in nursing notes. Patient tolerated procedure well. topical anesthesia use. hemostasis applied with compression. Silver alginate, DSD, 3M compression wrap. Will plan for 1 home health care dressing change in between visits. Stressed the importance of compression, elevation and exercise to prevent the ulcers from reoccurring. Follow in 1 week. (2) Other specified peripheral vascular diseases: CODE(S): I73.89 - Other specified peripheral vascular diseases
[2022-12-06 09:32] VITALS: BP 156/87; PULSE 71; RESP 18; TEMP 35.5; BMI 49.7
--- NOTE | 2022-12-06 10:33 | PCM.WC.PN ---
History of Present Illness Date of Service: 12/06/22 Chief Complaint: Follow-up for 3 open areas on her left lower leg anterior perera Progress of Wound: No changes today. Wounds improving. No signs or symptoms of DVT. Denies constitutional's. Had some pain with tight dressing over weekend. Objective Data Objective Data Vital Signs: Vital Signs Temp Pulse Resp BP O2 Del Method 96 F L 71 18 156/87 H Room Air 12/06/22 09:32 12/06/22 09:32 12/06/22 09:32 12/06/22 09:32 12/06/22 09:32 Oxygen Delivery Method Room Air Weight: 135.624 kg Body Mass Index (BMI) 49.7 Physical Exam Narrative Palpable DP/PT pulses 2/4 bilaterally. CFT brisk. +2 pitting edema bilaterally. Light touch/protective sensation absent to bilateral feet. Wound at anterior tibial tuberosity and anteromedial ankle, full thickness wound mixed fibrogranular base. No signs of infection. These wounds appear to be healing well at this time. No gross deformity. No pain with calf squeeze bilatrally. Muscular strength 5/5 to evertors, invertors, dorsiflexors and plantarflexors. Const alert and oriented x3 Debridement Note Debridement Note Post-Debridement Measurements and Additional Note: Post-Debridement Measurements/Treatment - Nurse 1 - General Ulcer Assessment Start: 11/22/22 08:54 Freq: Status: Active Protocol: .LOWEXT Activity Type Activity Date Activity User E-sign Co-sign Detail Recorded Client Recorded Date Recorded By Document 11/22/22 08:56 [facility] [id number] 11/22/22 09:07 [facility] Document 11/29/22 09:24 DL [id number] 11/29/22 09:36 DL Document 12/06/22 09:32 [facility] [id number] 12/06/22 09:45 [facility] 11/22/22 11/29/22 12/06/22 08:56 09:24 09:32 - Today's Visit Information Type of service Initial Visit Follow-up Visit Follow-up Visit (Physician/INSURANCE ASSOCIATE (Physician/INSURANCE ASSOCIATE ) ) Arrival Mode Ambulatory Ambulatory Ambulatory,Cane Transfer Assistance None None None Patient Identification Verified (Name & Yes Yes Yes ) Patient Requires Transmission-Based No No No Precautions Finger Stick Blood Sugar(mg/dl) (if 128 indicated): Blood Sugar Stated by Patient Height and Weight Height 5 ft 5 in Weight 135.624 kg Weight in Pounds 299.0 lbs Weight Measurement Method Stated by Patient Body Mass Index (BMI) 49.7 49.7 49.7 BMI Classification Obese Obese Obese BSA - Annette 2.35 Vital Signs Temperature (97.8 F-99.1 F) 95.9 F L 97.5 F L 96 F L Temperature Source Temporal Temporal Temporal Pulse Rate (60-100) 87 72 71 Pulse Location Monitor Monitor Respiratory Rate (12-18) 18 20 H 18 Respiratory rate source Observation Observation Observation Oxygen Delivery Method Room Air Room Air Blood Pressure (90/60-120/80) 158/86 H 179/94 H 156/87 H Blood Pressure Mean (mm Hg) 110 122 110 Source Monitor Monitor Monitor Position Sitting Sitting Blood Pressure Location Left Forearm Left Forearm History Since Last Visit- (Skip if this is Patient's initial visit) Have you changed medications since your No No last visit? Any new allergies or adverse reactions No No Had a fall/change in ADL's that may No No increase risk of falls Signs or symptoms of abuse and/or No No neglect since last visit Have you been in the hospital since your No No last visit? Has dressing in place as prescribed Yes Yes Has compression in place as prescribed Yes Yes Has offloadiing in place as prescribed N/A N/A Experienced any changes in pain level or No No management Left Footwear Regular Shoe Regular Shoe Right Footwear Regular Shoe Regular Shoe Pain Scale: 0-10 Numeric Is Patient Pain Free? Yes Yes Yes WC - Nurse 1 - General Ulcer Measurement Start: 11/22/22 08:54 Freq: Status: Active Protocol: Activity Type Activity Date Activity User E-sign Co-sign Detail Recorded Client Recorded Date Recorded By Document 11/22/22 08:56 [facility] [id number] 11/22/22 09:07 BM Document 11/29/22 09:24 DL [id number] 11/29/22 09:36 DL Document 12/06/22 09:32 [facility] [id number] 12/06/22 09:45 [facility] 11/22/22 11/29/22 12/06/22 08:56 09:24 09:32 Wound Center Nurse 1 #8- L MED LOWER PERERA -Combined with other wound No No -Current Size (cm) - Length 0.4 0.7 1 -Current Size (cm) - Width 1.4 0.8 1.6 -Current Size (cm) - Depth 0.1 0.1 0.1 -Total Square Cm 0.56 0.56 1.6 -Date of Last Picture (Recall this 11/22/22 12/06/22 field) -Photo Taken Yes Yes Yes -Epithelialization None Present None Present -Tunneling No No -Undermining/Tunneling No No -Circular Undermining No No -Exudate Amt Small Small Small -Exudate Type Sanguineous Serosanguineous Sanguineous -Wound Margin Distinct, Distinct, Distinct, Outline Outline Outline Attached Attached Attached -Granulation Amt Small (1-33%) Large (67-100%) Large (67-100%) -Granulation Quality Red Pale,[place],Red -Slough/Fibrin Yes No -Necrosis Amt Large (67-100%) None Present (0 None Present (0 %) %) -Necrotic Tissue Type Adherent Slough -Structure Exposed N/A -Texture (Verónica-wound Skin Appearance) Assessed, Scarring Assessed, Scarring Scarring -Moisture (Verónica-wound Skin Appearance) Assessed Dry/Scaly Assessed -Color (Verónica-wound Skin Appearance) Assessed Hemosiderin Assessed Staining -Temperature (Verónica-wound Skin No Abnormality No Abnormality No Abnormality Appearance) (Pt Warm) (Pt Warm) (Pt Warm) -Tenderness on Palpation (Verónica-wound No No No Skin Appearance) -Ulcer Cleansing Rinsed/ Soap and Water Soap and Water Irrigated with Saline -Foul Odor after Cleansing No No No -Anesthetic Used 5% Lidocaine 5% Lidocaine 5% Lidocaine Gel Gel Gel #7- L PERERA -Combined with other wound No No -Current Size (cm) - Length 4.1 4.3 3.5 -Current Size (cm) - Width 3.3 2.8 2 -Current Size (cm) - Depth 0.2 0.1 0.1 -Total Square Cm 13.53 12.04 7.0 -Date of Last Picture (Recall this 11/22/22 12/06/22 field) -Photo Taken Yes Yes Yes -Epithelialization None Present None Present -Tunneling No No -Undermining/Tunneling No No -Circular Undermining No No -Exudate Amt Medium Medium Medium -Exudate Type Serosanguineous Serosanguineous Serosanguineous -Wound Margin Distinct, Distinct, Distinct, Outline Outline Outline Attached Attached Attached -Granulation Amt Small (1-33%) Small (1-33%) Small (1-33%) -Granulation Quality [place] Red -Slough/Fibrin Yes Yes -Necrosis Amt Large (67-100%) Large (67-100%) Large (67-100%) -Necrotic Tissue Type Adherent Slough Adherent Slough Adherent Slough -Structure Exposed N/A -Texture (Verónica-wound Skin Appearance) Assessed, Scarring Assessed, Scarring Scarring -Moisture (Evrónica-wound Skin Appearance) Assessed Dry/Scaly Assessed -Color (Verónica-wound Skin Appearance) Assessed, Hemosiderin Assessed Hemosiderin Staining Staining -Temperature (Verónica-wound Skin No Abnormality No Abnormality No Abnormality Appearance) (Pt Warm) (Pt Warm) (Pt Warm) -Tenderness on Palpation (Verónica-wound No No Skin Appearance) -Ulcer Cleansing Rinsed/ Soap and Water Irrigated with Saline -Foul Odor after Cleansing No No -Anesthetic Used 5% Lidocaine 5% Lidocaine 5% Lidocaine Gel Gel Gel Lower Limb Edema Present Yes Yes Left Calf (cm) 53.8 51 54.3 Left Ankle (cm) 24 22.5 22.6 WC - Nurse 2 - General Ulcer CM Notes Start: 11/22/22 08:54 Freq: Status: Active Protocol: Activity Type Activity Date Activity User E-sign Co-sign Detail Recorded Client Recorded Date Recorded By Document 11/22/22 09:27 [id number] 11/22/22 09:30 Document 11/29/22 09:43 [id number] 11/29/22 09:48 Document 12/06/22 10:03 [id number] 12/06/22 10:05 11/22/22 11/29/22 12/06/22 09:27 09:43 10:03 Wound Center Nurse 2 #8- L MED LOWER PERERA -Time 09:28 09:44 10:04 -Correct Patient Yes Yes Yes -Correct Side, Site, Position Yes Yes Yes -Correct Procedure Yes Yes Yes -Procedure Performed Yes Yes Yes -Type of Procedure Debridement Debridement Debridement -Clinical Debridement Subcutaneous Subcutaneous Subcutaneous -Tissue Removed Subcutaneous Subcutaneous Subcutaneous -Post Debridement (cm) - Length 0.5 0.8 1.1 -Post Debridement (cm) - Width 1.5 0.8 1.6 -Post Debridement (cm) - Depth 0.1 0.1 0.1 -Total Square (Post) (cm) 0.75 0.64 1.76 -Area of Debridement (cm) - Length 0.5 0.8 1.1 -Area of Debridement (cm) - Width 1.5 0.8 1.6 -Total Square (Area) (cm) 0.75 0.64 1.76 -Tunneling No No No -Undermining/Tunneling No No No -Circular Undermining No No No -Wound/Ulcer Outcome Not Healed Not Healed Not Healed -Ulcer Cleansing Rinsed/ Rinsed/ Rinsed/ Irrigated with Irrigated with Irrigated with Saline Saline Saline -Foul Odor after Cleansing No No No -Bioengineered Tissue No No No -Bleeding Controlled with Pressure Pressure Pressure -Treatment Response Procedure Procedure Procedure Tolerated Well Tolerated Well Tolerated Well -Offloading No No No -Debridement - Subq, 1st 20sq cm Yes Yes Yes #7- L PERERA -Time 09:29 09:46 10:04 -Correct Patient Yes Yes Yes -Correct Side, Site, Position Yes Yes Yes -Correct Procedure Yes Yes Yes -Procedure Performed Yes Yes Yes -Type of Procedure Debridement Debridement Debridement -Clinical Debridement Subcutaneous Subcutaneous Subcutaneous -Tissue Removed Subcutaneous Subcutaneous Subcutaneous -Post Debridement (cm) - Length 4.2 4.4 3.6 -Post Debridement (cm) - Width 3.3 2.8 2 -Post Debridement (cm) - Depth 0.2 0.1 0.1 -Total Square (Post) (cm) 13.86 12.32 7.2 -Area of Debridement (cm) - Length 4.2 4.4 3.6 -Area of Debridement (cm) - Width 3.3 2.8 2.0 -Total Square (Area) (cm) 13.86 12.32 7.20 -Tunneling No No No -Undermining/Tunneling No No No -Circular Undermining No No No -Wound/Ulcer Outcome Not Healed Not Healed Not Healed -Ulcer Cleansing Rinsed/ Rinsed/ Rinsed/ Irrigated with Irrigated with Irrigated with Saline Saline Saline -Foul Odor after Cleansing No No No -Bioengineered Tissue No No No -Bleeding Controlled with Pressure Pressure -Treatment Response Procedure Procedure Procedure Tolerated Well Tolerated Well Tolerated Well -Offloading No No No -Debridement - Subq, 1st 20sq cm No No No Pain Scale: 0-10 Numeric Is Patient Pain Free? Yes Yes Yes WC - Nurse 3 - General Ulcer D/C NN Start: 11/22/22 08:54 Freq: Status: Active Protocol: Activity Type Activity Date Activity User E-sign Co-sign Detail Recorded Client Recorded Date Recorded By Document 11/22/22 09:45 DL [id number] 11/22/22 09:47 DL Document 11/29/22 10:02 [facility] [id number] 11/29/22 10:03 BM Document 12/06/22 10:26 [facility] [id number] 12/06/22 10:27 BMF 11/22/22 11/29/22 12/06/22 09:45 10:02 10:26 Wound Care Nurse 3 #8- L MED LOWER PERERA -Ulcer Cleansing Soap and Water Rinsed/ Rinsed/ Irrigated with Irrigated with Saline Saline -Foul Odor after Cleansing No No No -Primary Dressing Applied Aquacel AG 4x4, Aquacel AG 4x4, Aquacel AG 2x2, NonAdherent NonAdherent NonAdherent Contact Layer Contact Layer Contact Layer -Primary Dressing Covered/Secured with Dry Gauze, Dry Gauze Dry Gauze Secured with Tape -Other Covering ABD -Aquacel AG 4x4 1 1 -Aquacel AG 2x2 1 #7- L PERERA -Ulcer Cleansing Soap and Water Rinsed/ Rinsed/ Irrigated with Irrigated with Saline Saline -Foul Odor after Cleansing No No No -Primary Dressing Applied NonAdherent Aquacel AG 4x4, Aquacel AG 2x2, Contact Layer NonAdherent NonAdherent Contact Layer Contact Layer -Other Dressing Aqaucel AG ABD -Primary Dressing Covered/Secured with Dry Gauze, Dry Gauze Secured with Tape -Aquacel AG 4x4 0 -Aquacel AG 2x2 0 Left -Lotion applied to leg before Yes compression wrap -Multi-Layered Wrap Application Multi-Layer Multi-Layer Multi-Layer Comp - Left ($) Comp - Left ($) Comp - Left ($) Treatment Response Procedure Procedure Procedure Tolerated Well Tolerated Well Tolerated Well Pain Scale: 0-10 Numeric Is Patient Pain Free? Yes Yes Yes WC - Visit Discharge Discharge Condition Stable Stable Stable Ambulatory Status Ambulatory Ambulatory,Cane Ambulatory,Cane Transportation Private [facility] Facility Type Home Health Home Health Orders Sent Yes Assessment/Plan Assessment/Plan (1) Non-pressure chronic ulcer of left calf with fat layer exposed: CODE(S): L97.222 - Non-pressure chronic ulcer of left calf with fat layer exposed PLAN: Patient examined and evaluated, all findings discussed with patient in detail. Wound reoccurred due to poorly controlled edema. Patient unable to pay for [place] or juxta lite wraps or compression stockings. Wounds x2 to left leg were excisionally debrided down to and including level of subcutaneous tissue of all non-viable tissue without incident. Pre and post debridement measurements documented in nursing notes. Patient tolerated procedure well. topical anesthesia use. hemostasis applied with compression. Silver alginate, DSD, 3M compression wrap. Will plan for 1 home health care dressing change in between visits. Stressed the importance of compression, elevation and exercise to prevent the ulcers from reoccurring. Follow in 1 week. (2) Other specified peripheral vascular diseases: CODE(S): I73.89 - Other specified peripheral vascular diseases
== END 2022-12-20 23:59 | disposition home or self-care (01) ==
LOC: WC 09:15
PROVIDERS: PCP Internal Medicine; Visit Provider Nurse Practitioner Family
DX: L97.222 Non-pressure chronic ulcer of left calf with fat layer exposed (principal); I73.89 Other specified peripheral vascular diseases; I87.2 Venous insufficiency (chronic) (peripheral)
CPT/HCPCS: 11042; 29581; 99213; G0463

== ENCOUNTER 2023-01-04 10:45 | Outpatient (RCR) | payer MEDICAID, SELFPAY ==
[2022-12-21 00:17] VITALS: BP 156/87; PULSE 71; RESP 18; TEMP 35.5; BMI 49.7
[2022-12-21 08:46] VITALS: BP 170/73; PULSE 72; RESP 18; TEMP 36.1; BMI 49.7
--- NOTE | 2022-12-21 13:35 | PN.PCM_ITS ---
History of Present Illness Date of Service: 12/21/22 Chief Complaint: Left anterior leg ulcers History of Wound: 57-year-old female who originally had a traumatic hematoma in 2012 to her left anterior leg and had an operative debridement and eventually had skin graft placement. She has been seen periodically at the wound center for chronic ulcers to her legs over the years. She has most recently been seeing Dr. Chang for her wound care. Her most significant issue at this time is her edema/lymphedema. When her edema becomes severe, she develops ulcers on her legs. She has a history of T2D, COPD, chronic venous insufficiency, cellulitis, chest pain, left ventricular aneurysm, HTN, Bipolar, ADHD, ABRAM, chronic pain syndrome, GERD. She currently denies fever, chills, nausea, vomiting. Progress of Wound: She has a ulcer cluster on her left proximal anterior leg that is oozing due to her +3-+4 edema. She also has an ulcer on her left distal anterior leg. Objective Data Objective Data Vital Signs: Vital Signs Temp Pulse Resp BP 97 F L 72 18 170/73 H 12/21/22 08:46 12/21/22 08:46 12/21/22 08:46 12/21/22 08:46 Weight: 299 lb Body Mass Index (BMI) 49.7 Charges/Coding Visit Charges Office Visits / Consults: 64666 OV L3 Est (25 modifier) Procedures Integumentary 111xxx-113xx: [id number] Joie subq tissue 20 sq cm/< Physical Exam Const alert and oriented x3 HEENT normocephalic Lymph Lymphatic: no lymphadenopathy noted Resp normal respiratory effort Effort and Inspection: able to speak in complete sentences Auscultation: wheezes Cardio regular rate and regular rhythm GI non-tender Extremity normal capillary refill Extremity Narrative: Edema/lymphedema +3-+4 pitting bilateral legs. Oozing serous drainage where ulcers are located. Skin Wound Narrative: Left proximal anterior leg ulcer cluster and left distal anterior leg ulcer are small, pink, oozing serous drainage from the amount of edema. Neuro Speech: speech normal Psych Psych Narrative: Flat affect Speech: normal speech Debridement Note Debridement Note Wound debrided: Anterior leg proximal ulcer cluster and distal leg ulcer Laterality: Left Wound Grade/Stage: Stage II Type of Debridement: Excisional debridement Anesthesia Used: 4% Lidocaine Solution Depth: Down to and including healthy tissue Percentage of wound debrided: 100 Instrument Used: 3mm curette Tissue Removed: Devitalized tissue and slough Severity: Limited To Skin Breakdown Amount of bleeding with debridement: Mild Bleeding Controlled with: Pressure and Compression and gauze Patient tolerated procedure: Patient tolerated procedure well Post-Debridement Measurements and Additional Note: Post-Debridement Measurements/Treatment - Nurse 1 - General Ulcer Assessment Start: 12/21/22 08:45 Freq: Status: Active Protocol: PERRY Activity Type Activity Date Activity User E-sign Co-sign Detail Recorded Client Recorded Date Recorded By Document 12/21/22 08:46 RB [id number] 12/21/22 08:59 RB 12/21/22 08:46 WC - Today's Visit Information Type of service Follow-up Visit (Physician/PROPERTY MANAGEMENT SPECIALIST ) Arrival Mode Ambulatory Transfer Assistance None Patient Identification Verified (Name & Yes ) Patient Requires Transmission-Based No Precautions Height and Weight Body Mass Index (BMI) 49.7 BMI Classification Obese Vital Signs Temperature (97.8 F-99.1 F) 97 F L Temperature Source Temporal Pulse Rate (60-100) 72 Pulse Location Monitor Respiratory Rate (12-18) 18 Respiratory rate source Observation Blood Pressure (90/60-120/80) 170/73 H Blood Pressure Mean (mm Hg) 105 Source Monitor Position Semi-Fowlers Blood Pressure Location Left Arm History Since Last Visit- (Skip if this is Patient's initial visit) Have you changed medications since your No last visit? Any new allergies or adverse reactions No Had a fall/change in ADL's that may No increase risk of falls Signs or symptoms of abuse and/or No neglect since last visit Have you been in the hospital since your No last visit? Has dressing in place as prescribed Yes Has compression in place as prescribed Yes Has offloadiing in place as prescribed No Experienced any changes in pain level or No management Pain Scale: 0-10 Numeric Is Patient Pain Free? Yes - Nurse 1 - General Ulcer Measurement Start: 12/21/22 08:45 Freq: Status: Active Protocol: Activity Type Activity Date Activity User E-sign Co-sign Detail Recorded Client Recorded Date Recorded By Document 12/21/22 08:46 RB [id number] 12/21/22 08:59 RB 12/21/22 08:46 Wound Center Nurse 1 #8- L MED LOWER TORRES -Combined with other wound No -Current Size (cm) - Length 0.1 -Current Size (cm) - Width 0.1 -Current Size (cm) - Depth 0.1 -Total Square Cm 0.01 -Photo Taken Yes -Tunneling No -Undermining/Tunneling No -Circular Undermining No -Exudate Amt Medium -Exudate Type Serosanguineous -Wound Margin Distinct, Outline Attached -Granulation Amt Medium (34-66%) -Granulation Quality [place] -Slough/Fibrin Yes -Necrosis Amt Large (67-100%) -Necrotic Tissue Type Adherent Slough -Structure Exposed N/A -Texture (Verónica-wound Skin Appearance) Assessed, Scarring -Moisture (Verónica-wound Skin Appearance) Assessed -Color (Verónica-wound Skin Appearance) Assessed -Temperature (Verónica-wound Skin No Abnormality Appearance) (Pt Warm) -Tenderness on Palpation (Verónica-wound No Skin Appearance) -Ulcer Cleansing Wound Cleanser -Foul Odor after Cleansing No -Anesthetic Used 5% Lidocaine Gel #7- L TORRES -Combined with other wound No -Current Size (cm) - Length 2.5 -Current Size (cm) - Width 2.3 -Current Size (cm) - Depth 0.1 -Total Square Cm 5.75 -Photo Taken Yes -Tunneling No -Undermining/Tunneling No -Circular Undermining No -Exudate Amt Large -Exudate Type Serosanguineous -Wound Margin Distinct, Outline Attached -Granulation Amt Medium (34-66%) -Granulation Quality [place] -Slough/Fibrin Yes -Necrosis Amt Medium (34-66%) -Necrotic Tissue Type Adherent Slough -Structure Exposed N/A -Texture (Verónica-wound Skin Appearance) Assessed, Scarring -Moisture (Verónica-wound Skin Appearance) Assessed -Color (Verónica-wound Skin Appearance) Assessed -Temperature (Verónica-wound Skin No Abnormality Appearance) (Pt Warm) -Tenderness on Palpation (Verónica-wound No Skin Appearance) -Ulcer Cleansing Wound Cleanser -Foul Odor after Cleansing No -Anesthetic Used 5% Lidocaine Gel Lower Limb Edema Present Yes Left Calf (cm) 50.5 Left Ankle (cm) 23 WC - Nurse 2 - General Ulcer CM Notes Start: 12/21/22 08:45 Freq: Status: Active Protocol: Activity Type Activity Date Activity User E-sign Co-sign Detail Recorded Client Recorded Date Recorded By Document 12/21/22 09:15 CARLOS [id number] 12/21/22 09:22 CARLOS 12/21/22 09:15 Wound Center Nurse 2 #8- L [facility] TORRES -Time 09:17 -Correct Patient Yes -Correct Side, Site, Position Yes -Correct Procedure Yes -Procedure Performed Yes -Type of Procedure Debridement -Clinical Debridement Subcutaneous -Tissue Removed Subcutaneous -Post Debridement (cm) - Length 0.3 -Post Debridement (cm) - Width 0.2 -Post Debridement (cm) - Depth 0.1 -Total Square (Post) (cm) 0.06 -Area of Debridement (cm) - Length 0.3 -Area of Debridement (cm) - Width 0.2 -Total Square (Area) (cm) 0.06 -Tunneling No -Undermining/Tunneling No -Circular Undermining No -Wound/Ulcer Outcome Not Healed -Ulcer Cleansing Rinsed/ Irrigated with Saline -Foul Odor after Cleansing No -Bioengineered Tissue No -Bleeding Controlled with Pressure -Treatment Response Procedure Tolerated Well -Offloading No -Debridement - Subq, 1st 20sq cm Yes #7- L TORRES -Time 09:20 -Correct Patient Yes -Correct Side, Site, Position Yes -Correct Procedure Yes -Procedure Performed Yes -Type of Procedure Debridement -Clinical Debridement Subcutaneous -Tissue Removed Subcutaneous -Post Debridement (cm) - Length 3.2 -Post Debridement (cm) - Width 2.0 -Post Debridement (cm) - Depth 0.1 -Total Square (Post) (cm) 6.40 -Area of Debridement (cm) - Length 3.2 -Area of Debridement (cm) - Width 2.0 -Total Square (Area) (cm) 6.40 -Tunneling No -Undermining/Tunneling No -Circular Undermining No -Wound/Ulcer Outcome Not Healed -Ulcer Cleansing Rinsed/ Irrigated with Saline -Foul Odor after Cleansing No -Bioengineered Tissue No -Bleeding Controlled with Pressure -Treatment Response Procedure Tolerated Well -Offloading No -Debridement - Subq, 1st 20sq cm No Pain Scale: 0-10 Numeric Is Patient Pain Free? Yes Assessment/Plan Assessment/Plan (1) Chronic ulcer of left leg, limited to breakdown of skin: CODE(S): L97.921 - Non-pressure chronic ulcer of unspecified part of left lower leg limited to breakdown of skin (2) Venous insufficiency (chronic) (peripheral): CODE(S): I87.2 - Venous insufficiency (chronic) (peripheral) (3) Diabetes mellitus type 2, uncontrolled, with complications: CODE(S): E11.8 - Type 2 diabetes mellitus with unspecified complications; E11.65 - Type 2 diabetes mellitus with hyperglycemia (4) Essential hypertension: CODE(S): I10 - Essential (primary) hypertension PLAN: Plan Patient was evaluated at the wound healing center today. Wound care will be Aquacel-Ag over the ulcer areas topped with ABD/super absorbers. Compression with be 3M 2 layer wraps. She has tolerated these in the past. She states that she only received on 3M 2 layer wrap so she is not able to get them changed from home health. Will plan on her wearing them for one week. Encouraged diet low in carbohydrates and high in protein. She has T2D and is unsure what her last hgA1C was. Will try to get records from [facility] where she has her labs drawn. Unable to find one done at [facility]. Venous study from 02/10/22 showed Left small saphenous vein was patent and incompetent. The rest of the study was normal. Arterial study from 02/10/22 showed Right MARILU 1.06 and Left MARILU 1.07. Waveforms were Triphasic bilaterally. No signs of arterial disease. She needs better edema control. She has not been able to afford compression stockings in the past. Follow up one week. Reviewed labs, studies and previous provider reports. 25 minutes spent with patient and reviewing chart.
[2022-12-28 08:57] VITALS: BP 129/60; PULSE 69; RESP 16; TEMP 35.8; BMI 49.7
--- NOTE | 2022-12-28 10:43 | PCM.WC.PN ---
History of Present Illness Date of Service: 12/28/22 Chief Complaint: Left anterior leg ulcers History of Wound: 57-year-old female who originally had a traumatic hematoma in 2012 to her left anterior leg and had an operative debridement and eventually had skin graft placement. She has been seen periodically at the wound center for chronic ulcers to her legs over the years. She has most recently been seeing Dr. Chang for her wound care. Her most significant issue at this time is her edema/lymphedema. When her edema becomes severe, she develops ulcers on her legs. She has a history of T2D, COPD, chronic venous insufficiency, cellulitis, chest pain, left ventricular aneurysm, HTN, Bipolar, ADHD, ABRAM, chronic pain syndrome, GERD. She currently denies fever, chills, nausea, vomiting. Progress of Wound: Left anterior leg ulcer cluster is smaller in size. Left medial lower leg ulcer is healed. Edema is better controlled after using the 3M 2 layer wraps. Objective Data Objective Data Vital Signs: Vital Signs Temp Pulse Resp BP O2 Del Method 96.4 F L 69 16 129/60 H Room Air 12/28/22 08:57 12/28/22 08:57 12/28/22 08:57 12/28/22 08:57 12/28/22 08:57 Oxygen Delivery Method Room Air Weight: 299 lb Body Mass Index (BMI) 49.7 Charges/Coding Procedures Integumentary 111xxx-113xx: 95683 Joie subq tissue 20 sq cm/< Debridement Note Debridement Note Wound debrided: Anterior leg proximal ulcer cluster Laterality: Left Wound Grade/Stage: Stage II Type of Debridement: Excisional debridement Anesthesia Used: 4% Lidocaine Solution Depth: Down to and including healthy tissue Percentage of wound debrided: 100 Instrument Used: 3mm curette Tissue Removed: Devitalized tissue and slough Severity: Limited To Skin Breakdown Amount of bleeding with debridement: Mild Bleeding Controlled with: Pressure and Compression and gauze Patient tolerated procedure: Patient tolerated procedure well Post-Debridement Measurements and Additional Note: Post-Debridement Measurements/Treatment NILO - Nurse 1 - General Ulcer Assessment Start: 12/21/22 08:45 Freq: Status: Active Protocol: PERRY Activity Type Activity Date Activity User E-sign Co-sign Detail Recorded Client Recorded Date Recorded By Document 12/21/22 08:46 RB [id number] 12/21/22 08:59 RB Document 12/28/22 08:57 [facility] [id number] 12/28/22 09:03 [facility] 12/21/22 12/28/22 08:46 08:57 - Today's Visit Information Type of service Follow-up Visit Follow-up Visit (Physician/SUSTAINABLE DESIGN COORDINATOR (Physician/SUSTAINABLE DESIGN COORDINATOR ) ) Arrival Mode Ambulatory Ambulatory Transfer Assistance None None Patient Identification Verified (Name & Yes Yes ) Patient Requires Transmission-Based No No Precautions Height and Weight Body Mass Index (BMI) 49.7 49.7 BMI Classification Obese Obese Vital Signs Temperature (97.8 F-99.1 F) 97 F L 96.4 F L Temperature Source Temporal Temporal Pulse Rate (60-100) 72 69 Pulse Location Monitor Monitor Respiratory Rate (12-18) 18 16 Respiratory rate source Observation Observation Oxygen Delivery Method Room Air Blood Pressure (90/60-120/80) 170/73 H 129/60 H Blood Pressure Mean (mm Hg) 105 83 Source Monitor Monitor Position Semi-Fowlers Sitting Blood Pressure Location Left Arm Right Forearm History Since Last Visit- (Skip if this is Patient's initial visit) Have you changed medications since your No No last visit? Any new allergies or adverse reactions No No Had a fall/change in ADL's that may No No increase risk of falls Signs or symptoms of abuse and/or No No neglect since last visit Have you been in the hospital since your No No last visit? Has dressing in place as prescribed Yes Yes Has compression in place as prescribed Yes Yes Has offloadiing in place as prescribed No N/A Experienced any changes in pain level or No No management Left Footwear Regular Shoe Right Footwear Regular Shoe Pain Scale: 0-10 Numeric Is Patient Pain Free? Yes Yes - Nurse 1 - General Ulcer Measurement Start: 12/21/22 08:45 Freq: Status: Active Protocol: Activity Type Activity Date Activity User E-sign Co-sign Detail Recorded Client Recorded Date Recorded By Document 12/21/22 08:46 RB [id number] 12/21/22 08:59 RB Document 12/28/22 08:57 [facility] [id number] 12/28/22 09:03 [facility] 12/21/22 12/28/22 08:46 08:57 Wound Center Nurse 1 #8- L MED LOWER TORRES -Combined with other wound No No -Current Size (cm) - Length 0.1 0.1 -Current Size (cm) - Width 0.1 0.1 -Current Size (cm) - Depth 0.1 0.1 -Total Square Cm 0.01 0.01 -Date of Last Picture (Recall this 12/28/22 field) -Photo Taken Yes Yes -Epithelialization Large 67-100% -Tunneling No No -Undermining/Tunneling No No -Circular Undermining No No -Exudate Amt Medium -Exudate Type Serosanguineous -Wound Margin Distinct, Outline Attached -Granulation Amt Medium (34-66%) -Granulation Quality [place] -Slough/Fibrin Yes -Necrosis Amt Large (67-100%) -Necrotic Tissue Type Adherent Slough -Structure Exposed N/A -Texture (Verónica-wound Skin Appearance) Assessed, Assessed, Scarring Scarring -Moisture (Verónica-wound Skin Appearance) Assessed Assessed,Dry/ Scaly -Color (Verónica-wound Skin Appearance) Assessed Assessed, Hemosiderin Staining -Temperature (Verónica-wound Skin No Abnormality No Abnormality Appearance) (Pt Warm) (Pt Warm) -Tenderness on Palpation (Verónica-wound No No Skin Appearance) -Ulcer Cleansing Wound Cleanser Soap and Water -Foul Odor after Cleansing No No -Anesthetic Used 5% Lidocaine 5% Lidocaine Gel Gel #7- L TORRES -Combined with other wound No No -Current Size (cm) - Length 2.5 0.1 -Current Size (cm) - Width 2.3 0.1 -Current Size (cm) - Depth 0.1 0.1 -Total Square Cm 5.75 0.01 -Date of Last Picture (Recall this 12/28/22 field) -Photo Taken Yes Yes -Epithelialization Large 67-100% -Tunneling No No -Undermining/Tunneling No No -Circular Undermining No No -Exudate Amt Large None Present -Exudate Type Serosanguineous -Wound Margin Distinct, Outline Attached -Granulation Amt Medium (34-66%) -Granulation Quality [place] -Slough/Fibrin Yes Yes -Necrosis Amt Medium (34-66%) Small (1-33%) -Necrotic Tissue Type Adherent Slough Eschar -Structure Exposed N/A -Texture (Verónica-wound Skin Appearance) Assessed, Assessed, Scarring Scarring -Moisture (Verónica-wound Skin Appearance) Assessed Assessed,Dry/ Scaly -Color (Verónica-wound Skin Appearance) Assessed Assessed, Hemosiderin Staining -Temperature (Verónica-wound Skin No Abnormality No Abnormality Appearance) (Pt Warm) (Pt Warm) -Tenderness on Palpation (Verónica-wound No No Skin Appearance) -Ulcer Cleansing Wound Cleanser Soap and Water -Foul Odor after Cleansing No No -Anesthetic Used 5% Lidocaine 5% Lidocaine Gel Gel Lower Limb Edema Present Yes Yes Left Calf (cm) 50.5 50.4 Left Ankle (cm) 23 23.7 WC - Nurse 2 - General Ulcer CM Notes Start: 12/21/22 08:45 Freq: Status: Active Protocol: Activity Type Activity Date Activity User E-sign Co-sign Detail Recorded Client Recorded Date Recorded By Document 12/21/22 09:15 [id number] 12/21/22 09:22 Document 12/28/22 09:39 [id number] 12/28/22 09:41 12/21/22 12/28/22 09:15 09:39 Wound Center Nurse 2 #8- L [facility] LOWER TORRES -Time 09:17 -Correct Patient Yes No -Correct Side, Site, Position Yes No -Correct Procedure Yes No -Procedure Performed Yes No -Type of Procedure Debridement -Clinical Debridement Subcutaneous -Tissue Removed Subcutaneous -Post Debridement (cm) - Length 0.3 0 -Post Debridement (cm) - Width 0.2 0 -Post Debridement (cm) - Depth 0.1 0 -Total Square (Post) (cm) 0.06 0 -Area of Debridement (cm) - Length 0.3 0 -Area of Debridement (cm) - Width 0.2 0 -Total Square (Area) (cm) 0.06 0 -Tunneling No -Undermining/Tunneling No -Circular Undermining No -Wound/Ulcer Outcome Not Healed Healed- Epithelialized -Ulcer Cleansing Rinsed/ Irrigated with Saline -Foul Odor after Cleansing No -Bioengineered Tissue No -Bleeding Controlled with Pressure -Treatment Response Procedure Tolerated Well -Offloading No -Debridement - Subq, 1st 20sq cm Yes #7- L TORRES -Time 09:20 09:40 -Correct Patient Yes Yes -Correct Side, Site, Position Yes Yes -Correct Procedure Yes Yes -Procedure Performed Yes Yes -Type of Procedure Debridement Debridement -Clinical Debridement Subcutaneous Subcutaneous -Tissue Removed Subcutaneous Subcutaneous -Post Debridement (cm) - Length 3.2 2.2 -Post Debridement (cm) - Width 2.0 1.8 -Post Debridement (cm) - Depth 0.1 0.1 -Total Square (Post) (cm) 6.40 3.96 -Area of Debridement (cm) - Length 3.2 2.2 -Area of Debridement (cm) - Width 2.0 1.8 -Total Square (Area) (cm) 6.40 3.96 -Tunneling No No -Undermining/Tunneling No No -Circular Undermining No No -Wound/Ulcer Outcome Not Healed Not Healed -Ulcer Cleansing Rinsed/ Rinsed/ Irrigated with Irrigated with Saline Saline -Foul Odor after Cleansing No No -Bioengineered Tissue No No -Bleeding Controlled with Pressure Pressure -Treatment Response Procedure Procedure Tolerated Well Tolerated Well -Offloading No No -Debridement - Subq, 1st 20sq cm No Yes Pain Scale: 0-10 Numeric Is Patient Pain Free? Yes Yes - Nurse 3 - General Ulcer D/C NN Start: 12/21/22 08:45 Freq: Status: Active Protocol: Activity Type Activity Date Activity User E-sign Co-sign Detail Recorded Client Recorded Date Recorded By Document 12/28/22 10:02 [id number] 12/28/22 10:03 12/28/22 10:02 Wound Care Center Nurse 3 #7- L TORRES -Ulcer Cleansing Rinsed/ Irrigated with Saline -Primary Dressing Applied Aquacel AG 2x2, NonAdherent Contact Layer -Primary Dressing Covered/Secured with Dry Gauze,Dry Gauze & Roll Gauze,Secured with Tape -Aquacel AG 2x2 1 Left -Tubular Bandage Double Layer -Size of Tubigrip Used Size F -Size F ($) 2 Pain Scale: 0-10 Numeric Is Patient Pain Free? Yes - Visit Discharge Discharge Condition Stable Ambulatory Status Ambulatory Transportation Private Auto Medication Reconcilliation completed & No provided to patient/care provider Clinical Summary of Care Provided Yes Assessment/Plan Assessment/Plan (1) Chronic ulcer of left leg, limited to breakdown of skin: CODE(S): L97.921 - Non-pressure chronic ulcer of unspecified part of left lower leg limited to breakdown of skin (2) Venous insufficiency (chronic) (peripheral): CODE(S): I87.2 - Venous insufficiency (chronic) (peripheral) (3) Diabetes mellitus type 2, uncontrolled, with complications: CODE(S): E11.8 - Type 2 diabetes mellitus with unspecified complications; E11.65 - Type 2 diabetes mellitus with hyperglycemia (4) Essential hypertension: CODE(S): I10 - Essential (primary) hypertension PLAN: Plan Patient was evaluated at the wound healing center today. Wound care will be Moistened Aquacel-Ag over the left anterior leg ulcer cluster topped with adaptic and gauze daily. Will order Circaid stocking for compression. Will have her wear double tubigrip for compression until she receives her circaid. Encouraged diet low in carbohydrates and high in protein. She has T2D and is unsure what her last hgA1C was. Will try to get records from [facility] where she has her labs drawn. Unable to find one done at [facility]. Venous study from 02/10/22 showed Left small saphenous vein was patent and incompetent. The rest of the study was normal. Arterial study from 02/10/22 showed Right MARILU 1.06 and Left MARILU 1.07. Waveforms were Triphasic bilaterally. No signs of arterial disease. Follow up one week.
[2023-01-04 11:00] VITALS: BP 135/69; PULSE 64; RESP 18; TEMP 35.7; BMI 49.7
--- NOTE | 2023-01-04 12:41 | PCM.WC.PN ---
History of Present Illness Date of Service: 01/04/23 Chief Complaint: Left anterior leg ulcers History of Wound: 57-year-old female who originally had a traumatic hematoma in 2011 to her left anterior leg and had an operative debridement and eventually had skin graft placement. She has been seen periodically at the wound center for chronic ulcers to her legs over the years. She has most recently been seeing Dr. Chang for her wound care. Her most significant issue at this time is her edema/lymphedema. When her edema becomes severe, she develops ulcers on her legs. She has a history of T2D, COPD, chronic venous insufficiency, cellulitis, chest pain, left ventricular aneurysm, HTN, Bipolar, ADHD, ABRAM, chronic pain syndrome, GERD. She currently denies fever, chills, nausea, vomiting. Progress of Wound: Left anterior leg ulcer cluster is smaller in size. Left medial lower leg ulcer remains healed. Edema stable. Objective Data Objective Data Vital Signs: Vital Signs Temp Pulse Resp BP O2 Del Method 96.2 F L 64 18 135/69 H Room Air 01/04/23 11:00 01/04/23 11:00 01/04/23 11:00 01/04/23 11:00 12/28/22 08:57 Oxygen Delivery Method Room Air Weight: 299 lb Body Mass Index (BMI) 49.7 Charges/Coding Procedures Integumentary 111xxx-113xx: 76309 Joie subq tissue 20 sq cm/< Debridement Note Debridement Note Wound debrided: Anterior leg proximal ulcer cluster Laterality: Left Wound Grade/Stage: Stage II Type of Debridement: Excisional debridement Anesthesia Used: 4% Lidocaine Solution Depth: Down to and including healthy tissue Percentage of wound debrided: 100 Instrument Used: 3mm curette Tissue Removed: Devitalized tissue and slough Severity: Limited To Skin Breakdown Amount of bleeding with debridement: Mild Bleeding Controlled with: Pressure and Compression and gauze Patient tolerated procedure: Patient tolerated procedure well Post-Debridement Measurements and Additional Note: Post-Debridement Measurements/Treatment WC - Nurse 1 - General Ulcer Assessment Start: 12/21/22 08:45 Freq: Status: Active Protocol: PERRY Activity Type Activity Date Activity User E-sign Co-sign Detail Recorded Client Recorded Date Recorded By Document 12/21/22 08:46 RB [id number] 12/21/22 08:59 RB Document 12/28/22 08:57 BMF [id number] 12/28/22 09:03 BM Document 01/04/23 11:00 RB [id number] 01/04/23 11:02 RB 12/21/22 12/28/22 01/04/23 08:46 08:57 11:00 - Today's Visit Information Type of service Follow-up Visit Follow-up Visit Follow-up Visit (Physician/CONSTRUCTION SPECIALIST (Physician/CONSTRUCTION SPECIALIST (Physician/CONSTRUCTION SPECIALIST ) ) ) Arrival Mode Ambulatory Ambulatory Ambulatory Transfer Assistance None None None Patient Identification Verified (Name & Yes Yes Yes ) Patient Requires Transmission-Based No No No Precautions Height and Weight Body Mass Index (BMI) 49.7 49.7 49.7 BMI Classification Obese Obese Obese Vital Signs Temperature (97.8 F-99.1 F) 97 F L 96.4 F L 96.2 F L Temperature Source Temporal Temporal Temporal Pulse Rate (60-100) 72 69 64 Pulse Location Monitor Monitor Monitor Respiratory Rate (12-18) 18 16 18 Respiratory rate source Observation Observation Observation Oxygen Delivery Method Room Air Blood Pressure (90/60-120/80) 170/73 H 129/60 H 135/69 H Blood Pressure Mean (mm Hg) 105 83 91 Source Monitor Monitor Monitor Position Semi-Fowlers Sitting Semi-Fowlers Blood Pressure Location Left Arm Right Forearm Left Arm History Since Last Visit- (Skip if this is Patient's initial visit) Have you changed medications since your No No No last visit? Any new allergies or adverse reactions No No No Had a fall/change in ADL's that may No No No increase risk of falls Signs or symptoms of abuse and/or No No No neglect since last visit Have you been in the hospital since your No No No last visit? Has dressing in place as prescribed Yes Yes Yes Has compression in place as prescribed Yes Yes Yes Has offloadiing in place as prescribed No N/A No Experienced any changes in pain level or No No No management Left Footwear Regular Shoe Regular Shoe Right Footwear Regular Shoe Regular Shoe Pain Scale: 0-10 Numeric Is Patient Pain Free? Yes Yes Yes - Nurse 1 - General Ulcer Measurement Start: 12/21/22 08:45 Freq: Status: Active Protocol: Activity Type Activity Date Activity User E-sign Co-sign Detail Recorded Client Recorded Date Recorded By Document 12/21/22 08:46 RB [id number] 12/21/22 08:59 RB Document 12/28/22 08:57 [facility] [id number] 12/28/22 09:03 BM Document 01/04/23 11:00 RB [id number] 01/04/23 11:02 RB 12/21/22 12/28/22 01/04/23 08:46 08:57 11:00 Wound Center Nurse 1 #8- L MED LOWER TORRES -Combined with other wound No No -Current Size (cm) - Length 0.1 0.1 -Current Size (cm) - Width 0.1 0.1 -Current Size (cm) - Depth 0.1 0.1 -Total Square Cm 0.01 0.01 -Date of Last Picture (Recall this 12/28/22 field) -Photo Taken Yes Yes -Epithelialization Large 67-100% -Tunneling No No -Undermining/Tunneling No No -Circular Undermining No No -Exudate Amt Medium -Exudate Type Serosanguineous -Wound Margin Distinct, Outline Attached -Granulation Amt Medium (34-66%) -Granulation Quality [place] -Slough/Fibrin Yes -Necrosis Amt Large (67-100%) -Necrotic Tissue Type Adherent Slough -Structure Exposed N/A -Texture (Verónica-wound Skin Appearance) Assessed, Assessed, Scarring Scarring -Moisture (Verónica-wound Skin Appearance) Assessed Assessed,Dry/ Scaly -Color (Verónica-wound Skin Appearance) Assessed Assessed, Hemosiderin Staining -Temperature (Verónica-wound Skin No Abnormality No Abnormality Appearance) (Pt Warm) (Pt Warm) -Tenderness on Palpation (Verónica-wound No No Skin Appearance) -Ulcer Cleansing Wound Cleanser Soap and Water -Foul Odor after Cleansing No No -Anesthetic Used 5% Lidocaine 5% Lidocaine Gel Gel #7- L TORRES -Combined with other wound No No No -Current Size (cm) - Length 2.5 0.1 0.7 -Current Size (cm) - Width 2.3 0.1 0.5 -Current Size (cm) - Depth 0.1 0.1 0.1 -Total Square Cm 5.75 0.01 0.35 -Date of Last Picture (Recall this 12/28/22 field) -Photo Taken Yes Yes Yes -Epithelialization Large 67-100% -Tunneling No No No -Undermining/Tunneling No No No -Circular Undermining No No No -Exudate Amt Large None Present Medium -Exudate Type Serosanguineous Serosanguineous -Wound Margin Distinct, Distinct, Outline Outline Attached Attached -Granulation Amt Medium (34-66%) Medium (34-66%) -Granulation Quality [place] -Slough/Fibrin Yes Yes Yes -Necrosis Amt Medium (34-66%) Small (1-33%) Medium (34-66%) -Necrotic Tissue Type Adherent Slough Eschar Adherent Slough -Structure Exposed N/A N/A -Texture (Verónica-wound Skin Appearance) Assessed, Assessed, Assessed, Scarring Scarring Scarring -Moisture (Verónica-wound Skin Appearance) Assessed Assessed,Dry/ Assessed Scaly -Color (Verónica-wound Skin Appearance) Assessed Assessed, Assessed Hemosiderin Staining -Temperature (Verónica-wound Skin No Abnormality No Abnormality No Abnormality Appearance) (Pt Warm) (Pt Warm) (Pt Warm) -Tenderness on Palpation (Verónica-wound No No No Skin Appearance) -Ulcer Cleansing Wound Cleanser Soap and Water Wound Cleanser -Foul Odor after Cleansing No No No -Anesthetic Used 5% Lidocaine 5% Lidocaine 5% Lidocaine Gel Gel Gel Lower Limb Edema Present Yes Yes Yes Left Calf (cm) 50.5 50.4 54 Left Ankle (cm) 23 23.7 24.5 WC - Nurse 2 - General Ulcer CM Notes Start: 12/21/22 08:45 Freq: Status: Active Protocol: Activity Type Activity Date Activity User E-sign Co-sign Detail Recorded Client Recorded Date Recorded By Document 12/21/22 09:15 [id number] 12/21/22 09:22 Document 12/28/22 09:39 [id number] 12/28/22 09:41 Document 01/04/23 11:25 [id number] 01/04/23 11:28 12/21/22 12/28/22 01/04/23 09:15 09:39 11:25 Wound Center Nurse 2 #8- L MED LOWER TORRES -Time 09:17 -Correct Patient Yes No -Correct Side, Site, Position Yes No -Correct Procedure Yes No -Procedure Performed Yes No -Type of Procedure Debridement -Clinical Debridement Subcutaneous -Tissue Removed Subcutaneous -Post Debridement (cm) - Length 0.3 0 -Post Debridement (cm) - Width 0.2 0 -Post Debridement (cm) - Depth 0.1 0 -Total Square (Post) (cm) 0.06 0 -Area of Debridement (cm) - Length 0.3 0 -Area of Debridement (cm) - Width 0.2 0 -Total Square (Area) (cm) 0.06 0 -Tunneling No -Undermining/Tunneling No -Circular Undermining No -Wound/Ulcer Outcome Not Healed Healed- Epithelialized -Ulcer Cleansing Rinsed/ Irrigated with Saline -Foul Odor after Cleansing No -Bioengineered Tissue No -Bleeding Controlled with Pressure -Treatment Response Procedure Tolerated Well -Offloading No -Debridement - Subq, 1st 20sq cm Yes #7- L TORRES -Time 09:20 09:40 11:25 -Correct Patient Yes Yes Yes -Correct Side, Site, Position Yes Yes Yes -Correct Procedure Yes Yes Yes -Procedure Performed Yes Yes Yes -Type of Procedure Debridement Debridement Debridement -Clinical Debridement Subcutaneous Subcutaneous Subcutaneous -Tissue Removed Subcutaneous Subcutaneous Subcutaneous -Post Debridement (cm) - Length 3.2 2.2 2.5 -Post Debridement (cm) - Width 2.0 1.8 1.4 -Post Debridement (cm) - Depth 0.1 0.1 0.1 -Total Square (Post) (cm) 6.40 3.96 3.50 -Area of Debridement (cm) - Length 3.2 2.2 2.5 -Area of Debridement (cm) - Width 2.0 1.8 1.4 -Total Square (Area) (cm) 6.40 3.96 3.50 -Tunneling No No No -Undermining/Tunneling No No No -Circular Undermining No No No -Wound/Ulcer Outcome Not Healed Not Healed Not Healed -Ulcer Cleansing Rinsed/ Rinsed/ Rinsed/ Irrigated with Irrigated with Irrigated with Saline Saline Saline -Foul Odor after Cleansing No No No -Bioengineered Tissue No No No -Bleeding Controlled with Pressure Pressure Pressure -Treatment Response Procedure Procedure Procedure Tolerated Well Tolerated Well Tolerated Well -Offloading No No No -Debridement - Subq, 1st 20sq cm No Yes Yes Pain Scale: 0-10 Numeric Is Patient Pain Free? Yes Yes Yes WC - Nurse 3 - General Ulcer D/C NN Start: 12/21/22 08:45 Freq: Status: Active Protocol: Activity Type Activity Date Activity User E-sign Co-sign Detail Recorded Client Recorded Date Recorded By Document 12/28/22 10:02 RB [id number] 12/28/22 10:03 RB Document 01/04/23 11:45 RB [id number] 01/04/23 11:46 RB 12/28/22 01/04/23 10:02 11:45 Wound Care Center Nurse 3 #7- L TORRES -Ulcer Cleansing Rinsed/ Rinsed/ Irrigated with Irrigated with Saline Saline -Primary Dressing Applied Aquacel AG 2x2, Aquacel AG 2x2, NonAdherent NonAdherent Contact Layer Contact Layer -Primary Dressing Covered/Secured with Dry Gauze,Dry Dry Gauze,Dry Gauze & Roll Gauze & Roll Gauze,Secured Gauze,Secured with Tape with Tape -Aquacel AG 2x2 1 1 Left -Tubular Bandage Double Layer Double Layer -Size of Tubigrip Used Size F Size F -Size F ($) 2 2 Treatment Response Procedure Tolerated Well Pain Scale: 0-10 Numeric Is Patient Pain Free? Yes Yes WC - Visit Discharge Discharge Condition Stable Stable Ambulatory Status Ambulatory Ambulatory Transportation Private Auto Private Auto Medication Reconcilliation completed & No No provided to patient/care provider Clinical Summary of Care Provided Yes Yes Assessment/Plan Assessment/Plan (1) Chronic ulcer of left leg, limited to breakdown of skin: CODE(S): L97.921 - Non-pressure chronic ulcer of unspecified part of left lower leg limited to breakdown of skin (2) Venous insufficiency (chronic) (peripheral): CODE(S): I87.2 - Venous insufficiency (chronic) (peripheral) (3) Diabetes mellitus type 2, uncontrolled, with complications: CODE(S): E11.8 - Type 2 diabetes mellitus with unspecified complications; E11.65 - Type 2 diabetes mellitus with hyperglycemia (4) Edema of both lower extremities: CODE(S): R60.0 - Localized edema PLAN: Plan Patient was evaluated at the wound healing center today. Wound care will be Adaptic, covered wit moistened Aquacel-Ag over the left anterior leg ulcer cluster topped gauze daily. Ordered Circaid stocking for compression. Will have her wear double tubigrip for compression until she receives her circaid. Encouraged diet low in carbohydrates and high in protein. She has T2D and is unsure what her last hgA1C was. [facility] states she has no labs. Unable to find one done at [facility]. Venous study from 02/10/22 showed Left small saphenous vein was patent and incompetent. The rest of the study was normal. Arterial study from 02/10/22 showed Right MARILU 1.06 and Left MARILU 1.07. Waveforms were Triphasic bilaterally. No signs of arterial disease. Follow up one week.
== END 2023-01-17 23:59 | disposition home or self-care (01) ==
LOC: WC 10:45
PROVIDERS: PCP Internal Medicine; Visit Provider Nurse Practitioner Family
DX: L97.921 Non-pressure chronic ulcer of unspecified part of left lower leg limited to breakdown of skin (principal); L97.821 Non-pressure chronic ulcer of other part of left lower leg limited to breakdown of skin; J44.9 Chronic obstructive pulmonary disease, unspecified; E11.65 Type 2 diabetes mellitus with hyperglycemia; E11.59 Type 2 diabetes mellitus with other circulatory complications; I89.0 Lymphedema, not elsewhere classified; I10 Essential (primary) hypertension; E66.9 Obesity, unspecified; R60.0 Localized edema; I87.2 Venous insufficiency (chronic) (peripheral)
CPT/HCPCS: 11042

== ENCOUNTER 2023-02-01 10:15 | Outpatient (RCR) | payer MEDICAID, SELFPAY ==
[2023-01-18 00:13] VITALS: BP 135/69; PULSE 64; RESP 18; TEMP 35.7; BMI 49.7
[2023-01-18 10:19] VITALS: BP 117/60; PULSE 55; RESP 16; TEMP 35.7; BMI 49.7
--- NOTE | 2023-01-18 10:57 | PN.PCM_ITS ---
History of Present Illness Date of Service: 01/18/23 Chief Complaint: Left anterior leg ulcers History of Wound: 57-year-old female who originally had a traumatic hematoma in 2011 to her left anterior leg and had an operative debridement and eventually had skin graft placement. She has been seen periodically at the wound center for chronic ulcers to her legs over the years. She has most recently been seeing Dr. Chang for her wound care. Her most significant issue at this time is her edema/lymphedema. When her edema becomes severe, she develops ulcers on her legs. She has a history of T2D, COPD, chronic venous insufficiency, cellulitis, chest pain, left ventricular aneurysm, HTN, Bipolar, ADHD, ABRAM, chronic pain syndrome, GERD. She currently denies fever, chills, nausea, vomiting. Progress of Wound: Left anterior leg ulcer is smaller in size. Left medial lower leg ulcer remains healed. Edema stable. Objective Data Objective Data Vital Signs: Vital Signs Temp Pulse Resp BP 96.2 F L 55 L 16 117/60 01/18/23 10:19 01/18/23 10:19 01/18/23 10:19 01/18/23 10:19 Weight: 299 lb Body Mass Index (BMI) 49.7 Charges/Coding Procedures Integumentary 111xxx-113xx: 20142 Joie subq tissue 20 sq cm/< Debridement Note Debridement Note Wound debrided: Anterior leg proximal ulcer cluster Laterality: Left Wound Grade/Stage: Stage II Type of Debridement: Excisional debridement Anesthesia Used: 4% Lidocaine Solution Depth: Down to and including healthy tissue Percentage of wound debrided: 100 Instrument Used: 3mm curette Tissue Removed: Devitalized tissue and slough Severity: Limited To Skin Breakdown Amount of bleeding with debridement: Mild Bleeding Controlled with: Pressure and Compression and gauze Patient tolerated procedure: Patient tolerated procedure well Post-Debridement Measurements and Additional Note: Post-Debridement Measurements/Treatment NILO - Nurse 1 - General Ulcer Assessment Start: 01/18/23 10:19 Freq: Status: Active Protocol: PERRY Activity Type Activity Date Activity User E-sign Co-sign Detail Recorded Client Recorded Date Recorded By Document 01/18/23 10:19 CARLOS [id number] 01/18/23 10:21 CARLOS 01/18/23 10:19 NILO - Today's Visit Information Type of service Follow-up Visit (Physician/CONCERT MANAGER ) Arrival Mode Ambulatory Patient Identification Verified (Name & Yes ) Patient Requires Transmission-Based No Precautions Finger Stick Blood Sugar(mg/dl) (if 131 indicated): Blood Sugar Stated by Patient Height and Weight Body Mass Index (BMI) 49.7 BMI Classification Obese Vital Signs Temperature (97.8 F-99.1 F) 96.2 F L Temperature Source Temporal Pulse Rate (60-100) 55 L Pulse Location Monitor Respiratory Rate (12-18) 16 Respiratory rate source Observation Blood Pressure (90/60-120/80) 117/60 Blood Pressure Mean (mm Hg) 79 Source Monitor Position Semi-Fowlers Blood Pressure Location Left Forearm History Since Last Visit- (Skip if this is Patient's initial visit) Have you changed medications since your No last visit? Any new allergies or adverse reactions No Had a fall/change in ADL's that may No increase risk of falls Signs or symptoms of abuse and/or No neglect since last visit Have you been in the hospital since your No last visit? Has dressing in place as prescribed Yes Has compression in place as prescribed No Has offloadiing in place as prescribed N/A Experienced any changes in pain level or No management Left Footwear Regular Shoe Right Footwear Regular Shoe Pain Scale: 0-10 Numeric Is Patient Pain Free? Yes WC - Nurse 1 - General Ulcer Measurement Start: 01/18/23 10:19 Freq: Status: Active Protocol: Activity Type Activity Date Activity User E-sign Co-sign Detail Recorded Client Recorded Date Recorded By Document 01/18/23 10:19 [id number] 01/18/23 10:21 CARLOS 01/18/23 10:19 Wound Center Nurse 1 #7- L TORRES -Combined with other wound No -Current Size (cm) - Length 0.6 -Current Size (cm) - Width 0.7 -Current Size (cm) - Depth 0.1 -Total Square Cm 0.42 -Photo Taken Yes -Epithelialization Medium 34-66% -Tunneling No -Undermining/Tunneling No -Circular Undermining No -Exudate Amt Medium -Exudate Type Serosanguineous -Wound Margin Flat & Intact -Granulation Amt Large (67-100%) -Granulation Quality Red -Slough/Fibrin Yes -Necrosis Amt Small (1-33%) -Structure Exposed N/A -Texture (Verónica-wound Skin Appearance) Assessed, Localized Edema -Moisture (Verónica-wound Skin Appearance) Assessed,Dry/ Scaly -Color (Verónica-wound Skin Appearance) Assessed -Temperature (Verónica-wound Skin No Abnormality Appearance) (Pt Warm) -Tenderness on Palpation (Verónica-wound No Skin Appearance) -Ulcer Cleansing Rinsed/ Irrigated with Saline -Foul Odor after Cleansing No -Anesthetic Used 5% Lidocaine Gel Lower Limb Edema Present Yes Left Calf (cm) 52.5 Left Ankle (cm) 23.3 WC - Nurse 2 - General Ulcer CM Notes Start: 01/18/23 10:19 Freq: Status: Active Protocol: Activity Type Activity Date Activity User E-sign Co-sign Detail Recorded Client Recorded Date Recorded By Document 01/18/23 10:27 CARLOS [id number] 01/18/23 10:31 JF 01/18/23 10:27 Wound Center Nurse 2 #7- L TORRES -Time 10:28 -Correct Patient Yes -Correct Side, Site, Position Yes -Correct Procedure Yes -Procedure Performed Yes -Type of Procedure Debridement -Clinical Debridement Subcutaneous -Tissue Removed Subcutaneous -Post Debridement (cm) - Length 0.7 -Post Debridement (cm) - Width 1.0 -Post Debridement (cm) - Depth 0.1 -Total Square (Post) (cm) 0.70 -Area of Debridement (cm) - Length 0.7 -Area of Debridement (cm) - Width 1.0 -Total Square (Area) (cm) 0.70 -Tunneling No -Undermining/Tunneling No -Circular Undermining No -Wound/Ulcer Outcome Not Healed -Ulcer Cleansing Rinsed/ Irrigated with Saline -Foul Odor after Cleansing No -Bioengineered Tissue No -Bleeding Controlled with Pressure -Treatment Response Procedure Tolerated Well -Offloading No -Debridement - Subq, 1st 20sq cm Yes Pain Scale: 0-10 Numeric Is Patient Pain Free? Yes WC - Nurse 3 - General Ulcer D/C NN Start: 01/18/23 10:19 Freq: Status: Active Protocol: Activity Type Activity Date Activity User E-sign Co-sign Detail Recorded Client Recorded Date Recorded By Document 01/18/23 10:48 RB [id number] 01/18/23 10:49 RB 01/18/23 10:48 Wound Care Center Nurse 3 #7- L TORRES -Ulcer Cleansing Rinsed/ Irrigated with Saline -Primary Dressing Applied C Hydrogel ($), NonAdherent Contact Layer, Mepilex Border -Mepilex Border 1 Left -Tubular Bandage Double Layer -Size of Tubigrip Used Size E -Size E ($) 4 Treatment Response Procedure Tolerated Well Pain Scale: 0-10 Numeric Is Patient Pain Free? Yes WC - Visit Discharge Discharge Condition Stable Ambulatory Status Ambulatory Transportation Private Auto Medication Reconcilliation completed & No provided to patient/care provider Clinical Summary of Care Provided Yes Assessment/Plan Assessment/Plan (1) Chronic ulcer of left leg, limited to breakdown of skin: CODE(S): L97.921 - Non-pressure chronic ulcer of unspecified part of left lower leg limited to breakdown of skin (2) Venous insufficiency (chronic) (peripheral): CODE(S): I87.2 - Venous insufficiency (chronic) (peripheral) (3) Diabetes mellitus type 2, uncontrolled, with complications: CODE(S): E11.8 - Type 2 diabetes mellitus with unspecified complications; E11.65 - Type 2 diabetes mellitus with hyperglycemia (4) Edema of both lower extremities: CODE(S): R60.0 - Localized edema PLAN: Plan Patient was evaluated at the wound healing center today. Wound care will be Collagen hydrogel covered with Adaptic topped gauze daily. Ordered Circaid stocking for compression. Her insurance will not cover them. Will have her wear double tubigrip for compression for now. She is not physically able to get 30-40 mmHg compression stockings on her self. Instructed her to go to [facility] first thing in the morning to get measured. She can purchase OTC compression stockings that are 15 mmHg and wear two of them to get a higher compression (approx 30 mmHg). Discussed with her that if she does not consistently wear compression, she will continue to have edema issue which can lead to skin breakdown. She verbalizes understanding. Encouraged diet low in carbohydrates and high in protein. She has T2D and is unsure what her last hgA1C was. [facility] states she has no labs. Unable to find one done at [facility]. Venous study from 02/10/22 showed Left small saphenous vein was patent and incompetent. The rest of the study was normal. Arterial study from 02/10/22 showed Right MARILU 1.06 and Left MARILU 1.07. Waveforms were Triphasic bilaterally. No signs of arterial disease. Follow up one week.
[2023-01-25 10:40] VITALS: BP 124/70; PULSE 63; RESP 18; TEMP 36.1; BMI 49.7
--- NOTE | 2023-01-25 11:24 | PCM.WC.PN ---
History of Present Illness Date of Service: 01/25/23 Chief Complaint: Left anterior leg ulcers History of Wound: 57-year-old female who originally had a traumatic hematoma in 2011 to her left anterior leg and had an operative debridement and eventually had skin graft placement. She has been seen periodically at the wound center for chronic ulcers to her legs over the years. She has most recently been seeing Dr. Chang for her wound care. Her most significant issue at this time is her edema/lymphedema. When her edema becomes severe, she develops ulcers on her legs. She has a history of T2D, COPD, chronic venous insufficiency, cellulitis, chest pain, left ventricular aneurysm, HTN, Bipolar, ADHD, ABRAM, chronic pain syndrome, GERD. She currently denies fever, chills, nausea, vomiting. Progress of Wound: Left anterior leg ulcer is now a cluster. Edema stable. Objective Data Objective Data Vital Signs: Vital Signs Temp Pulse Resp BP 97 F L 63 18 124/70 H 01/25/23 10:40 01/25/23 10:40 01/25/23 10:40 01/25/23 10:40 Weight: 299 lb Body Mass Index (BMI) 49.7 Charges/Coding Procedures Integumentary 111xxx-113xx: 66620 Joie subq tissue 20 sq cm/< Debridement Note Debridement Note Wound debrided: Anterior leg proximal ulcer cluster Laterality: Left Wound Grade/Stage: Stage II Type of Debridement: Excisional debridement Anesthesia Used: 4% Lidocaine Solution Depth: Down to and including healthy tissue Percentage of wound debrided: 100 Instrument Used: 3mm curette Tissue Removed: Devitalized tissue and slough Severity: Limited To Skin Breakdown Amount of bleeding with debridement: Mild Bleeding Controlled with: Pressure and Compression and gauze Patient tolerated procedure: Patient tolerated procedure well Post-Debridement Measurements and Additional Note: Post-Debridement Measurements/Treatment NILO - Nurse 1 - General Ulcer Assessment Start: 01/18/23 10:19 Freq: Status: Active Protocol: PERRY Activity Type Activity Date Activity User E-sign Co-sign Detail Recorded Client Recorded Date Recorded By Document 01/18/23 10:19 CARLOS [id number] 01/18/23 10:21 JF Document 01/25/23 10:40 RB [id number] 01/25/23 10:43 RB 01/18/23 01/25/23 10:19 10:40 - Today's Visit Information Type of service Follow-up Visit Follow-up Visit (Physician/COLD ROLL OPERATOR (Physician/COLD ROLL OPERATOR ) ) Arrival Mode Ambulatory Ambulatory Transfer Assistance None Patient Identification Verified (Name & Yes Yes ) Patient Requires Transmission-Based No Precautions Finger Stick Blood Sugar(mg/dl) (if 131 indicated): Blood Sugar Stated by Patient Height and Weight Body Mass Index (BMI) 49.7 49.7 BMI Classification Obese Obese Vital Signs Temperature (97.8 F-99.1 F) 96.2 F L 97 F L Temperature Source Temporal Temporal Pulse Rate (60-100) 55 L 63 Pulse Location Monitor Monitor Respiratory Rate (12-18) 16 18 Respiratory rate source Observation Observation Blood Pressure (90/60-120/80) 117/60 124/70 H Blood Pressure Mean (mm Hg) 79 88 Source Monitor Monitor Position Semi-Fowlers Semi-Fowlers Blood Pressure Location Left Forearm Left Arm History Since Last Visit- (Skip if this is Patient's initial visit) Have you changed medications since your No No last visit? Any new allergies or adverse reactions No No Had a fall/change in ADL's that may No No increase risk of falls Signs or symptoms of abuse and/or No No neglect since last visit Have you been in the hospital since your No No last visit? Has dressing in place as prescribed Yes Yes Has compression in place as prescribed No Yes Has offloadiing in place as prescribed N/A No Experienced any changes in pain level or No No management Left Footwear Regular Shoe Right Footwear Regular Shoe Pain Scale: 0-10 Numeric Is Patient Pain Free? Yes Yes - Nurse 1 - General Ulcer Measurement Start: 01/18/23 10:19 Freq: Status: Active Protocol: Activity Type Activity Date Activity User E-sign Co-sign Detail Recorded Client Recorded Date Recorded By Document 01/18/23 10:19 CARLOS [id number] 01/18/23 10:21 Document 01/25/23 10:40 RB [id number] 01/25/23 10:43 RB 01/18/23 01/25/23 10:19 10:40 Wound Center Nurse 1 #7- L TORRES cluster -Combined with other wound No No -Current Size (cm) - Length 0.6 0.8 -Current Size (cm) - Width 0.7 1.2 -Current Size (cm) - Depth 0.1 0.3 -Total Square Cm 0.42 0.96 -Photo Taken Yes Yes -Epithelialization Medium 34-66% -Tunneling No No -Undermining/Tunneling No No -Circular Undermining No No -Exudate Amt Medium Large -Exudate Type Serosanguineous Serosanguineous -Wound Margin Flat & Intact Thickened & Rolled Under -Granulation Amt Large (67-100%) Medium (34-66%) -Granulation Quality [place] -Slough/Fibrin Yes Yes -Necrosis Amt Small (1-33%) Medium (34-66%) -Necrotic Tissue Type Adherent Slough -Structure Exposed N/A N/A -Texture (Verónica-wound Skin Appearance) Assessed, Assessed, Localized Edema Scarring -Moisture (Verónica-wound Skin Appearance) Assessed,Dry/ Assessed Scaly -Color (Verónica-wound Skin Appearance) Assessed Assessed -Temperature (Verónica-wound Skin No Abnormality No Abnormality Appearance) (Pt Warm) (Pt Warm) -Tenderness on Palpation (Verónica-wound No No Skin Appearance) -Ulcer Cleansing Rinsed/ Wound Cleanser Irrigated with Saline -Foul Odor after Cleansing No No -Anesthetic Used 5% Lidocaine 5% Lidocaine Gel Gel Lower Limb Edema Present Yes Yes Left Calf (cm) 52.5 50 Left Ankle (cm) 23.3 23.2 - Nurse 2 - General Ulcer CM Notes Start: 01/18/23 10:19 Freq: Status: Active Protocol: Activity Type Activity Date Activity User E-sign Co-sign Detail Recorded Client Recorded Date Recorded By Document 01/18/23 10:27 [id number] 01/18/23 10:31 Document 01/25/23 10:53 [id number] 01/25/23 10:55 01/18/23 01/25/23 10:27 10:53 Wound Center Nurse 2 #7- L TORRES cluster -Time 10:28 10:54 -Correct Patient Yes Yes -Correct Side, Site, Position Yes Yes -Correct Procedure Yes Yes -Procedure Performed Yes Yes -Type of Procedure Debridement Debridement -Clinical Debridement Subcutaneous Subcutaneous -Tissue Removed Subcutaneous Subcutaneous -Post Debridement (cm) - Length 0.7 2.3 -Post Debridement (cm) - Width 1.0 1.8 -Post Debridement (cm) - Depth 0.1 0.1 -Total Square (Post) (cm) 0.70 4.14 -Area of Debridement (cm) - Length 0.7 2.3 -Area of Debridement (cm) - Width 1.0 1.8 -Total Square (Area) (cm) 0.70 4.14 -Tunneling No No -Undermining/Tunneling No No -Circular Undermining No No -Wound/Ulcer Outcome Not Healed Not Healed -Ulcer Cleansing Rinsed/ Rinsed/ Irrigated with Irrigated with Saline Saline -Foul Odor after Cleansing No No -Bioengineered Tissue No No -Bleeding Controlled with Pressure Pressure -Treatment Response Procedure Procedure Tolerated Well Tolerated Well -Offloading No No -Debridement - Subq, 1st 20sq cm Yes Yes Pain Scale: 0-10 Numeric Is Patient Pain Free? Yes Yes - Nurse 3 - General Ulcer D/C NN Start: 01/18/23 10:19 Freq: Status: Active Protocol: Activity Type Activity Date Activity User E-sign Co-sign Detail Recorded Client Recorded Date Recorded By Document 01/18/23 10:48 [id number] 01/18/23 10:49 Document 01/25/23 10:56 [id number] 01/25/23 11:02 01/18/23 01/25/23 10:48 10:56 Wound Care Center Nurse 3 #7- L TORRES cluster -Ulcer Cleansing Rinsed/ Rinsed/ Irrigated with Irrigated with Saline Saline -Foul Odor after Cleansing No -Primary Dressing Applied C Hydrogel ($), Promogran NonAdherent Latisha Matter, Contact Layer, Mepilex Border Mepilex Border -Mepilex Border 1 1 -Promogran Latisha Matter 1 Left -Tubular Bandage Double Layer Double Layer -Size of Tubigrip Used Size E Size F -Size E ($) 4 -Size F ($) 2 Treatment Response Procedure Tolerated Well Pain Scale: 0-10 Numeric Is Patient Pain Free? Yes Yes - Visit Discharge Discharge Condition Stable Stable Ambulatory Status Ambulatory Ambulatory Transportation Private Auto Private Auto Medication Reconcilliation completed & No Yes provided to patient/care provider Clinical Summary of Care Provided Yes Yes Assessment/Plan Assessment/Plan (1) Chronic ulcer of left leg, limited to breakdown of skin: CODE(S): L97.921 - Non-pressure chronic ulcer of unspecified part of left lower leg limited to breakdown of skin (2) Venous insufficiency (chronic) (peripheral): CODE(S): I87.2 - Venous insufficiency (chronic) (peripheral) (3) Diabetes mellitus type 2, uncontrolled, with complications: CODE(S): E11.8 - Type 2 diabetes mellitus with unspecified complications; E11.65 - Type 2 diabetes mellitus with hyperglycemia (4) Edema of both lower extremities: CODE(S): R60.0 - Localized edema PLAN: Plan Patient was evaluated at the wound healing center today. Wound care will be moistened Latisha covered with [place] SAP daily. Ordered Circaid stocking for compression. Her insurance will not cover them. Will have her wear double tubigrip for compression for now. She is not physically able to get 30-40 mmHg compression stockings on her self. Instructed her to go to [facility] first thing in the morning to get measured. She can purchase OTC compression stockings that are 15 mmHg and wear two of them to get a higher compression (approx 30 mmHg). Encouraged her to get the compression stockings. Discussed with her that if she does not consistently wear compression, she will continue to have edema issue which can lead to skin breakdown. She verbalizes understanding. Encouraged diet low in carbohydrates and high in protein. She has T2D and is unsure what her last hgA1C was. [facility] states she has no labs. Unable to find one done at [facility]. Venous study from 02/10/22 showed Left small saphenous vein was patent and incompetent. The rest of the study was normal. Arterial study from 02/10/22 showed Right MARILU 1.06 and Left MARILU 1.07. Waveforms were Triphasic bilaterally. No signs of arterial disease. Follow up one week.
[2023-02-01 10:33] VITALS: BP 148/73; PULSE 73; RESP 20; TEMP 37; BMI 49.7
--- NOTE | 2023-02-01 11:52 | PCM.WC.PN ---
History of Present Illness Date of Service: 02/01/23 Chief Complaint: Left anterior leg ulcers History of Wound: 57-year-old female who originally had a traumatic hematoma in 2011 to her left anterior leg and had an operative debridement and eventually had skin graft placement. She has been seen periodically at the wound center for chronic ulcers to her legs over the years. She has most recently been seeing Dr. Chang for her wound care. Her most significant issue at this time is her edema/lymphedema. When her edema becomes severe, she develops ulcers on her legs. She has a history of T2D, COPD, chronic venous insufficiency, cellulitis, chest pain, left ventricular aneurysm, HTN, Bipolar, ADHD, ABRAM, chronic pain syndrome, GERD. She currently denies fever, chills, nausea, vomiting. Progress of Wound: Left anterior leg ulcer cluster is stable. Edema is stable. She has finally purchased her compression stockings. Objective Data Objective Data Vital Signs: Vital Signs Temp Pulse Resp BP 98.6 F 73 20 H 148/73 H 02/01/23 10:33 02/01/23 10:33 02/01/23 10:33 02/01/23 10:33 Weight: 299 lb Body Mass Index (BMI) 49.7 Charges/Coding Procedures Integumentary 111xxx-113xx: 74199 Joie subq tissue 20 sq cm/< Debridement Note Debridement Note Wound debrided: Anterior leg proximal ulcer cluster Laterality: Left Wound Grade/Stage: Stage II Type of Debridement: Excisional debridement Anesthesia Used: 4% Lidocaine Solution Depth: Down to and including healthy tissue Percentage of wound debrided: 100 Instrument Used: 3mm curette Tissue Removed: Devitalized tissue and slough Severity: Limited To Skin Breakdown Amount of bleeding with debridement: Mild Bleeding Controlled with: Pressure and Compression and gauze Patient tolerated procedure: Patient tolerated procedure well Post-Debridement Measurements and Additional Note: Post-Debridement Measurements/Treatment NILO - Nurse 1 - General Ulcer Assessment Start: 01/18/23 10:19 Freq: Status: Active Protocol: PERRY Activity Type Activity Date Activity User E-sign Co-sign Detail Recorded Client Recorded Date Recorded By Document 01/18/23 10:19 CARLOS [id number] 01/18/23 10:21 JF Document 01/25/23 10:40 RB [id number] 01/25/23 10:43 RB Document 02/01/23 10:33 DL [id number] 02/01/23 10:39 DL 01/18/23 01/25/23 02/01/23 10:19 10:40 10:33 - Today's Visit Information Type of service Follow-up Visit Follow-up Visit Follow-up Visit (Physician/[employer] OPERATIONS SUPERINTENDENT (Physician/[employer] OPERATIONS SUPERINTENDENT (Physician/[employer] OPERATIONS SUPERINTENDENT ) ) ) Arrival Mode Ambulatory Ambulatory Ambulatory Transfer Assistance None None Patient Identification Verified (Name & Yes Yes Yes ) Patient Requires Transmission-Based No No Precautions Finger Stick Blood Sugar(mg/dl) (if 131 128 indicated): Blood Sugar Stated by Stated by Patient Patient Height and Weight Body Mass Index (BMI) 49.7 49.7 49.7 BMI Classification Obese Obese Obese Vital Signs Temperature (97.8 F-99.1 F) 96.2 F L 97 F L 98.6 F Temperature Source Temporal Temporal Temporal Pulse Rate (60-100) 55 L 63 73 Pulse Location Monitor Monitor Monitor Respiratory Rate (12-18) 16 18 20 H Respiratory rate source Observation Observation Observation Blood Pressure (90/60-120/80) 117/60 124/70 H 148/73 H Blood Pressure Mean (mm Hg) 79 88 98 Source Monitor Monitor Monitor Position Semi-Fowlers Semi-Fowlers Blood Pressure Location Left Forearm Left Arm History Since Last Visit- (Skip if this is Patient's initial visit) Have you changed medications since your No No No last visit? Any new allergies or adverse reactions No No No Had a fall/change in ADL's that may No No No increase risk of falls Signs or symptoms of abuse and/or No No No neglect since last visit Have you been in the hospital since your No No No last visit? Has dressing in place as prescribed Yes Yes Yes Has compression in place as prescribed No Yes No Has offloadiing in place as prescribed N/A No N/A Experienced any changes in pain level or No No Yes management Left Footwear Regular Shoe Right Footwear Regular Shoe Pain Scale: 0-10 Numeric Is Patient Pain Free? Yes Yes Yes - Nurse 1 - General Ulcer Measurement Start: 01/18/23 10:19 Freq: Status: Active Protocol: Activity Type Activity Date Activity User E-sign Co-sign Detail Recorded Client Recorded Date Recorded By Document 01/18/23 10:19 [id number] 01/18/23 10:21 JF Document 01/25/23 10:40 RB [id number] 01/25/23 10:43 RB Document 02/01/23 10:33 DL [id number] 02/01/23 10:39 DL 01/18/23 01/25/23 02/01/23 10:19 10:40 10:33 Wound Center Nurse 1 #7- L TORRES cluster -Combined with other wound No No -Current Size (cm) - Length 0.6 0.8 2.2 -Current Size (cm) - Width 0.7 1.2 1.8 -Current Size (cm) - Depth 0.1 0.3 0.1 -Total Square Cm 0.42 0.96 3.96 -Photo Taken Yes Yes Yes -Epithelialization Medium 34-66% -Tunneling No No -Undermining/Tunneling No No -Circular Undermining No No -Exudate Amt Medium Large Small -Exudate Type Serosanguineous Serosanguineous Serosanguineous -Wound Margin Flat & Intact Thickened & Distinct, Rolled Under Outline Attached -Granulation Amt Large (67-100%) Medium (34-66%) Large (67-100%) -Granulation Quality Red [place] Red -Slough/Fibrin Yes Yes -Necrosis Amt Small (1-33%) Medium (34-66%) Small (1-33%) -Necrotic Tissue Type Adherent Slough Adherent Slough -Structure Exposed N/A N/A N/A -Texture (Verónica-wound Skin Appearance) Assessed, Assessed, Scarring Localized Edema Scarring -Moisture (Verónica-wound Skin Appearance) Assessed,Dry/ Assessed No Abnormality Scaly -Color (Verónica-wound Skin Appearance) Assessed Assessed Hemosiderin Staining -Temperature (Verónica-wound Skin No Abnormality No Abnormality No Abnormality Appearance) (Pt Warm) (Pt Warm) (Pt Warm) -Tenderness on Palpation (Verónica-wound No No No Skin Appearance) -Ulcer Cleansing Rinsed/ Wound Cleanser Irrigated with Saline -Foul Odor after Cleansing No No No -Anesthetic Used 5% Lidocaine 5% Lidocaine 5% Lidocaine Gel Gel Gel Lower Limb Edema Present Yes Yes Left Calf (cm) 52.5 50 48.5 Left Ankle (cm) 23.3 23.2 23 WC - Nurse 2 - General Ulcer CM Notes Start: 01/18/23 10:19 Freq: Status: Active Protocol: Activity Type Activity Date Activity User E-sign Co-sign Detail Recorded Client Recorded Date Recorded By Document 01/18/23 10:27 [id number] 01/18/23 10:31 Document 01/25/23 10:53 [id number] 01/25/23 10:55 Document 02/01/23 10:45 [id number] 02/01/23 10:48 01/18/23 01/25/23 02/01/23 10:27 10:53 10:45 Wound Center Nurse 2 #7- L TORRES cluster -Time 10:28 10:54 10:46 -Correct Patient Yes Yes Yes -Correct Side, Site, Position Yes Yes Yes -Correct Procedure Yes Yes Yes -Procedure Performed Yes Yes Yes -Type of Procedure Debridement Debridement Debridement -Clinical Debridement Subcutaneous Subcutaneous Subcutaneous -Tissue Removed Subcutaneous Subcutaneous Subcutaneous -Post Debridement (cm) - Length 0.7 2.3 2.4 -Post Debridement (cm) - Width 1.0 1.8 2.0 -Post Debridement (cm) - Depth 0.1 0.1 0.1 -Total Square (Post) (cm) 0.70 4.14 4.80 -Area of Debridement (cm) - Length 0.7 2.3 2.4 -Area of Debridement (cm) - Width 1.0 1.8 2.0 -Total Square (Area) (cm) 0.70 4.14 4.80 -Tunneling No No No -Undermining/Tunneling No No No -Circular Undermining No No No -Wound/Ulcer Outcome Not Healed Not Healed Not Healed -Ulcer Cleansing Rinsed/ Rinsed/ Rinsed/ Irrigated with Irrigated with Irrigated with Saline Saline Saline -Foul Odor after Cleansing No No No -Bioengineered Tissue No No No -Bleeding Controlled with Pressure Pressure Pressure -Treatment Response Procedure Procedure Procedure Tolerated Well Tolerated Well Tolerated Well -Offloading No No No -Debridement - Subq, 1st 20sq cm Yes Yes Yes Pain Scale: 0-10 Numeric Is Patient Pain Free? Yes Yes Yes NILO - Nurse 3 - General Ulcer D/C NN Start: 01/18/23 10:19 Freq: Status: Active Protocol: Activity Type Activity Date Activity User E-sign Co-sign Detail Recorded Client Recorded Date Recorded By Document 01/18/23 10:48 RB [id number] 01/18/23 10:49 RB Document 01/25/23 10:56 [id number] 01/25/23 11:02 CARLOS 01/18/23 01/25/23 10:48 10:56 Wound Care Center Nurse 3 #7- L TORRES cluster -Ulcer Cleansing Rinsed/ Rinsed/ Irrigated with Irrigated with Saline Saline -Foul Odor after Cleansing No -Primary Dressing Applied C Hydrogel ($), Promogran NonAdherent Latisha Matter, Contact Layer, Mepilex Border Mepilex Border -Mepilex Border 1 1 -Promogran Latisha Matter 1 Left -Tubular Bandage Double Layer Double Layer -Size of Tubigrip Used Size E Size F -Size E ($) 4 -Size F ($) 2 Treatment Response Procedure Tolerated Well Pain Scale: 0-10 Numeric Is Patient Pain Free? Yes Yes WC - Visit Discharge Discharge Condition Stable Stable Ambulatory Status Ambulatory Ambulatory Transportation Private Auto Private Auto Medication Reconcilliation completed & No Yes provided to patient/care provider Clinical Summary of Care Provided Yes Yes Assessment/Plan Assessment/Plan (1) Chronic ulcer of left leg, limited to breakdown of skin: CODE(S): L97.921 - Non-pressure chronic ulcer of unspecified part of left lower leg limited to breakdown of skin (2) Venous insufficiency (chronic) (peripheral): CODE(S): I87.2 - Venous insufficiency (chronic) (peripheral) (3) Diabetes mellitus type 2, uncontrolled, with complications: CODE(S): E11.8 - Type 2 diabetes mellitus with unspecified complications; E11.65 - Type 2 diabetes mellitus with hyperglycemia (4) Edema of both lower extremities: CODE(S): R60.0 - Localized edema PLAN: Plan Patient was evaluated at the wound healing center today. Wound care will be moistened Latisha covered with [place] SAP daily. Ordered Circaid stocking for compression. Her insurance will not cover them. She is not physically able to get 30-40 mmHg compression stockings on her self. She has purchased compression stockings with 8-15 mmHg. Will have her wear them both on her left leg so she is getting 16-30 mmHg. Instructed her how to place them. Will evaluate next week to see how she is tolerating them. Discussed with her that if she does not consistently wear compression, she will continue to have edema issue which can lead to skin breakdown. She verbalizes understanding. Encouraged diet low in carbohydrates and high in protein. She has T2D and is unsure what her last hgA1C was. [facility] states she has no labs. Unable to find one done at [facility]. Venous study from 02/10/22 showed Left small saphenous vein was patent and incompetent. The rest of the study was normal. Arterial study from 02/10/22 showed Right MARILU 1.06 and Left MARILU 1.07. Waveforms were Triphasic bilaterally. No signs of arterial disease. Follow up one week.
== END 2023-02-17 23:59 | disposition home or self-care (01) ==
LOC: WC 10:15
PROVIDERS: PCP Internal Medicine; Visit Provider Nurse Practitioner Family
DX: E11.621 Type 2 diabetes mellitus with foot ulcer (principal); L97.921 Non-pressure chronic ulcer of unspecified part of left lower leg limited to breakdown of skin; J44.9 Chronic obstructive pulmonary disease, unspecified; E11.65 Type 2 diabetes mellitus with hyperglycemia; I89.0 Lymphedema, not elsewhere classified; I10 Essential (primary) hypertension; R60.0 Localized edema; I87.2 Venous insufficiency (chronic) (peripheral)
CPT/HCPCS: 11042

== ENCOUNTER 2023-03-15 09:00 | Outpatient (RCR) | payer MEDICAID, SELFPAY ==
[2023-02-18 01:14] VITALS: BP 148/73; PULSE 73; RESP 20; TEMP 37; BMI 49.7
[2023-02-22 10:50] VITALS: BP 121/74; PULSE 72; RESP 18; TEMP 36; BMI 49.7
--- NOTE | 2023-02-22 11:18 | PCM.WC.PN ---
History of Present Illness Date of Service: 02/22/23 Chief Complaint: Left anterior leg ulcers History of Wound: 57-year-old female who originally had a traumatic hematoma in 2011 to her left anterior leg and had an operative debridement and eventually had skin graft placement. She has been seen periodically at the wound center for chronic ulcers to her legs over the years. She has most recently been seeing Dr. Chang for her wound care. Her most significant issue at this time is her edema/lymphedema. When her edema becomes severe, she develops ulcers on her legs. She has a history of T2D, COPD, chronic venous insufficiency, cellulitis, chest pain, left ventricular aneurysm, HTN, Bipolar, ADHD, ABRAM, chronic pain syndrome, GERD. She currently denies fever, chills, nausea, vomiting. Progress of Wound: Left anterior leg ulcer is smaller and is no longer a cluster. Edema is stable. She has finally purchased her compression stockings but they are not long enough. She is now wearing double tubigrip. Objective Data Objective Data Vital Signs: Vital Signs Temp Pulse Resp BP 96.8 F L 72 18 121/74 H 02/22/23 10:50 02/22/23 10:50 02/22/23 10:50 02/22/23 10:50 Weight: 299 lb Body Mass Index (BMI) 49.7 Charges/Coding Procedures Integumentary 111xxx-113xx: 40734 Joie subq tissue 20 sq cm/< Debridement Note Debridement Note Wound debrided: Anterior leg proximal ulcer cluster Laterality: Left Wound Grade/Stage: Stage II Type of Debridement: Excisional debridement Anesthesia Used: 4% Lidocaine Solution Depth: Down to and including healthy tissue Percentage of wound debrided: 100 Instrument Used: 3mm curette Tissue Removed: Devitalized tissue and slough Severity: Limited To Skin Breakdown Amount of bleeding with debridement: Mild Bleeding Controlled with: Pressure and Compression and gauze Patient tolerated procedure: Patient tolerated procedure well Post-Debridement Measurements and Additional Note: Post-Debridement Measurements/Treatment - Nurse 1 - General Ulcer Assessment Start: 02/22/23 10:50 Freq: Status: Active Protocol: NILO.LOWEXT Activity Type Activity Date Activity User E-sign Co-sign Detail Recorded Client Recorded Date Recorded By Document 02/22/23 10:50 DL [id number] 02/22/23 10:55 DL 02/22/23 10:50 - Today's Visit Information Type of service Follow-up Visit (Physician/USER EXPERIENCE TEAM LEAD ) Arrival Mode Ambulatory Transfer Assistance None Patient Identification Verified (Name & Yes ) Patient Requires Transmission-Based No Precautions Finger Stick Blood Sugar(mg/dl) (if 168 indicated): Blood Sugar Stated by Patient Height and Weight Body Mass Index (BMI) 49.7 BMI Classification Obese Vital Signs Temperature (97.8 F-99.1 F) 96.8 F L Temperature Source Temporal Pulse Rate (60-100) 72 Pulse Location Monitor Respiratory Rate (12-18) 18 Respiratory rate source Observation Blood Pressure (90/60-120/80) 121/74 H Blood Pressure Mean (mm Hg) 89 Source Monitor History Since Last Visit- (Skip if this is Patient's initial visit) Have you changed medications since your No last visit? Any new allergies or adverse reactions No Had a fall/change in ADL's that may No increase risk of falls Signs or symptoms of abuse and/or No neglect since last visit Have you been in the hospital since your No last visit? Has dressing in place as prescribed Yes Has compression in place as prescribed Yes Has offloadiing in place as prescribed N/A Experienced any changes in pain level or No management Pain Scale: 0-10 Numeric Is Patient Pain Free? Yes - Nurse 1 - General Ulcer Measurement Start: 02/22/23 10:50 Freq: Status: Active Protocol: Activity Type Activity Date Activity User E-sign Co-sign Detail Recorded Client Recorded Date Recorded By Document 02/22/23 10:50 DL [id number] 02/22/23 10:55 DL 02/22/23 10:50 Wound Center Nurse 1 #7- L TORRES cluster -Current Size (cm) - Length 0.7 -Current Size (cm) - Width 1.1 -Current Size (cm) - Depth 0.1 -Total Square Cm 0.77 -Photo Taken No -Exudate Amt Small -Exudate Type Yellow/Green -Wound Margin Distinct, Outline Attached -Granulation Amt Large (67-100%) -Granulation Quality [place],Red -Necrosis Amt Small (1-33%) -Necrotic Tissue Type Adherent Slough -Structure Exposed N/A -Texture (Verónica-wound Skin Appearance) Scarring -Moisture (Verónica-wound Skin Appearance) No Abnormality -Color (Verónica-wound Skin Appearance) Hemosiderin Staining -Temperature (Verónica-wound Skin No Abnormality Appearance) (Pt Warm) -Tenderness on Palpation (Verónica-wound No Skin Appearance) -Ulcer Cleansing Soap and Water -Foul Odor after Cleansing No -Anesthetic Used 5% Lidocaine Gel Left Calf (cm) 49.2 Left Ankle (cm) 22.3 WC - Nurse 2 - General Ulcer CM Notes Start: 02/22/23 10:50 Freq: Status: Active Protocol: Activity Type Activity Date Activity User E-sign Co-sign Detail Recorded Client Recorded Date Recorded By Document 02/22/23 11:01 JF [id number] 02/22/23 11:05 02/22/23 11:01 Wound Center Nurse 2 #7- L TORRES cluster -Time 11:01 -Correct Patient Yes -Correct Side, Site, Position Yes -Correct Procedure Yes -Procedure Performed Yes -Type of Procedure Debridement -Clinical Debridement Subcutaneous -Tissue Removed Subcutaneous -Post Debridement (cm) - Length 0.9 -Post Debridement (cm) - Width 1.1 -Post Debridement (cm) - Depth 0.1 -Total Square (Post) (cm) 0.99 -Area of Debridement (cm) - Length 0.9 -Area of Debridement (cm) - Width 1.1 -Total Square (Area) (cm) 0.99 -Tunneling No -Circular Undermining No -Wound/Ulcer Outcome Not Healed -Ulcer Cleansing Rinsed/ Irrigated with Saline -Foul Odor after Cleansing No -Bleeding Controlled with Pressure -Offloading No -Debridement - Subq, 1st 20sq cm Yes Pain Scale: 0-10 Numeric Is Patient Pain Free? Yes - Nurse 3 - General Ulcer D/C NN Start: 02/22/23 10:50 Freq: Status: Active Protocol: Activity Type Activity Date Activity User E-sign Co-sign Detail Recorded Client Recorded Date Recorded By Document 02/22/23 11:12 JF [id number] 02/22/23 11:13 02/22/23 11:12 Wound Care Center Nurse 3 #7- L TORRES cluster -Ulcer Cleansing Rinsed/ Irrigated with Saline -Foul Odor after Cleansing No -Negative Pressure Wound Therapy N/A -Primary Dressing Applied Promogran Latisha Matter, Mepilex Border -Mepilex Border 1 -Promogran Latisha Matter 1 Left -Tubular Bandage Double Layer -Size of Tubigrip Used Size F -Size F ($) 2 Pain Scale: 0-10 Numeric Is Patient Pain Free? Yes WC - Visit Discharge Discharge Condition Stable Ambulatory Status Ambulatory Transportation Private Auto Medication Reconcilliation completed & Yes provided to patient/care provider Clinical Summary of Care Provided Yes Assessment/Plan Assessment/Plan (1) Chronic ulcer of left leg, limited to breakdown of skin: CODE(S): L97.921 - Non-pressure chronic ulcer of unspecified part of left lower leg limited to breakdown of skin (2) Venous insufficiency (chronic) (peripheral): CODE(S): I87.2 - Venous insufficiency (chronic) (peripheral) (3) Diabetes mellitus type 2, uncontrolled, with complications: CODE(S): E11.8 - Type 2 diabetes mellitus with unspecified complications; E11.65 - Type 2 diabetes mellitus with hyperglycemia (4) Edema of both lower extremities: CODE(S): R60.0 - Localized edema PLAN: Plan Patient was evaluated at the wound healing center today. Wound care will be moistened Latisha covered with [employer] SAP daily. Ordered Circaid stocking for compression. Her insurance will not cover them. She is not physically able to get 30-40 mmHg compression stockings on her self. She has purchased compression stockings with 8-15 mmHg. Will have her wear them both on her left leg so she is getting 16-30 mmHg. Instructed her how to place them. She states they are too short and she would like to get a new pair of stockings but cannot afford them at this time. She is now wearing double tubigrips. Discussed with her that if she does not consistently wear compression, she will continue to have edema issue which can lead to skin breakdown. She verbalizes understanding. Encouraged diet low in carbohydrates and high in protein. She has T2D and is unsure what her last hgA1C was. [facility] states she has no labs. Unable to find one done at [facility]. Venous study from 02/10/22 showed Left small saphenous vein was patent and incompetent. The rest of the study was normal. Arterial study from 02/10/22 showed Right MARILU 1.06 and Left MARILU 1.07. Waveforms were Triphasic bilaterally. No signs of arterial disease. Follow up one week.
[2023-03-01 10:16] VITALS: BP 148/71; PULSE 111; RESP 18; TEMP 35.9; BMI 49.7
--- NOTE | 2023-03-01 10:43 | PN.PCM_ITS ---
History of Present Illness Date of Service: 03/01/23 Chief Complaint: Left anterior leg ulcers History of Wound: 57-year-old female who originally had a traumatic hematoma in 2012 to her left anterior leg and had an operative debridement and eventually had skin graft placement. She has been seen periodically at the wound center for chronic ulcers to her legs over the years. She has most recently been seeing Dr. Chang for her wound care. Her most significant issue at this time is her edema/lymphedema. When her edema becomes severe, she develops ulcers on her legs. She has a history of T2D, COPD, chronic venous insufficiency, cellulitis, chest pain, left ventricular aneurysm, HTN, Bipolar, ADHD, ABRAM, chronic pain syndrome, GERD. She currently denies fever, chills, nausea, vomiting. Progress of Wound: Left anterior leg ulcer is smaller. Edema is stable with the double tubigrip. She finally purchased her compression stockings but they are not long enough. Objective Data Objective Data Vital Signs: Vital Signs Temp Pulse Resp BP 96.7 F L 111 H 18 148/71 H 03/01/23 10:16 03/01/23 10:16 03/01/23 10:16 03/01/23 10:16 Weight: 299 lb Body Mass Index (BMI) 49.7 Charges/Coding Procedures Integumentary 111xxx-113xx: 18039 Joie subq tissue 20 sq cm/< Debridement Note Debridement Note Wound debrided: Anterior leg proximal ulcer cluster Laterality: Left Wound Grade/Stage: Stage II Type of Debridement: Excisional debridement Anesthesia Used: 4% Lidocaine Solution Depth: Down to and including healthy tissue Percentage of wound debrided: 100 Instrument Used: 3mm curette Tissue Removed: Devitalized tissue and slough Severity: Limited To Skin Breakdown Amount of bleeding with debridement: Mild Bleeding Controlled with: Pressure and Compression and gauze Patient tolerated procedure: Patient tolerated procedure well Post-Debridement Measurements and Additional Note: Post-Debridement Measurements/Treatment WC - Nurse 1 - General Ulcer Assessment Start: 02/22/23 10:50 Freq: Status: Active Protocol: PERRY Activity Type Activity Date Activity User E-sign Co-sign Detail Recorded Client Recorded Date Recorded By Document 02/22/23 10:50 DL [id number] 02/22/23 10:55 DL Document 03/01/23 10:16 PL Desktop 03/01/23 10:25 PL 02/22/23 03/01/23 10:50 10:16 - Today's Visit Information Type of service Follow-up Visit Follow-up Visit (Physician/RESPIRATORY CARE ASSISTANT (Physician/RESPIRATORY CARE ASSISTANT ) ) Arrival Mode Ambulatory Ambulatory Transfer Assistance None None Patient Identification Verified (Name & Yes Yes ) Patient Requires Transmission-Based No No Precautions Safety Precautions NA Finger Stick Blood Sugar(mg/dl) (if 168 indicated): Blood Sugar Stated by Patient Height and Weight Body Mass Index (BMI) 49.7 49.7 BMI Classification Obese Obese Vital Signs Temperature (97.8 F-99.1 F) 96.8 F L 96.7 F L Temperature Source Temporal Temporal Pulse Rate (60-100) 72 111 H Pulse Location Monitor Respiratory Rate (12-18) 18 18 Respiratory rate source Observation Blood Pressure (90/60-120/80) 121/74 H 148/71 H Blood Pressure Mean (mm Hg) 89 96 Source Monitor History Since Last Visit- (Skip if this is Patient's initial visit) Have you changed medications since your No No last visit? Any new allergies or adverse reactions No No Had a fall/change in ADL's that may No No increase risk of falls Signs or symptoms of abuse and/or No No neglect since last visit Have you been in the hospital since your No No last visit? Has dressing in place as prescribed Yes Yes Has compression in place as prescribed Yes N/A Has offloadiing in place as prescribed N/A N/A Experienced any changes in pain level or No No management Pain Scale: 0-10 Numeric Is Patient Pain Free? Yes Yes - Nurse 1 - General Ulcer Measurement Start: 02/22/23 10:50 Freq: Status: Active Protocol: Activity Type Activity Date Activity User E-sign Co-sign Detail Recorded Client Recorded Date Recorded By Document 02/22/23 10:50 DL [id number] 02/22/23 10:55 DL Document 03/01/23 10:16 PL Desktop 03/01/23 10:25 PL 02/22/23 03/01/23 10:50 10:16 Wound Center Nurse 1 #7- L TORRES cluster -Current Size (cm) - Length 0.7 0.5 -Current Size (cm) - Width 1.1 0.5 -Current Size (cm) - Depth 0.1 0.2 -Total Square Cm 0.77 0.25 -Photo Taken No No -Epithelialization Large 67-100% -Tunneling No -Undermining/Tunneling No -Circular Undermining No -Exudate Amt Small Medium -Exudate Type Yellow/Green Serosanguineous -Wound Margin Distinct, Outline Attached -Granulation Amt Large (67-100%) Large (67-100%) -Granulation Quality [place],Red [place] -Slough/Fibrin Yes -Necrosis Amt Small (1-33%) Small (1-33%) -Necrotic Tissue Type Adherent Slough Adherent Slough -Structure Exposed N/A -Texture (Verónica-wound Skin Appearance) Scarring No Abnormality -Moisture (Verónica-wound Skin Appearance) No Abnormality No Abnormality -Color (Verónica-wound Skin Appearance) Hemosiderin No Abnormality Staining -Temperature (Verónica-wound Skin No Abnormality No Abnormality Appearance) (Pt Warm) (Pt Warm) -Tenderness on Palpation (Verónica-wound No Skin Appearance) -Ulcer Cleansing Soap and Water Soap and Water -Foul Odor after Cleansing No No -Anesthetic Used 5% Lidocaine 5% Lidocaine Gel Gel Left Calf (cm) 49.2 Left Ankle (cm) 22.3 WC - Nurse 2 - General Ulcer CM Notes Start: 02/22/23 10:50 Freq: Status: Active Protocol: Activity Type Activity Date Activity User E-sign Co-sign Detail Recorded Client Recorded Date Recorded By Document 02/22/23 11:01 [email or web address] [id number] 02/22/23 11:05 Document 03/01/23 10:39 [id number] 03/01/23 10:41 02/22/23 03/01/23 11:01 10:39 Wound Center Nurse 2 #7- L TORRES cluster -Time 11:01 10:40 -Correct Patient Yes Yes -Correct Side, Site, Position Yes Yes -Correct Procedure Yes Yes -Procedure Performed Yes Yes -Type of Procedure Debridement Debridement -Clinical Debridement Subcutaneous Subcutaneous -Tissue Removed Subcutaneous Subcutaneous -Post Debridement (cm) - Length 0.9 1.0 -Post Debridement (cm) - Width 1.1 1.0 -Post Debridement (cm) - Depth 0.1 0.1 -Total Square (Post) (cm) 0.99 1.00 -Area of Debridement (cm) - Length 0.9 1.0 -Area of Debridement (cm) - Width 1.1 1.0 -Total Square (Area) (cm) 0.99 1.00 -Tunneling No No -Undermining/Tunneling No -Circular Undermining No No -Wound/Ulcer Outcome Not Healed Not Healed -Ulcer Cleansing Rinsed/ Rinsed/ Irrigated with Irrigated with Saline Saline -Foul Odor after Cleansing No No -Bioengineered Tissue No -Bleeding Controlled with Pressure Pressure -Treatment Response Procedure Tolerated Well -Offloading No No -Debridement - Subq, 1st 20sq cm Yes Yes Pain Scale: 0-10 Numeric Is Patient Pain Free? Yes Yes - Nurse 3 - General Ulcer D/C NN Start: 02/22/23 10:50 Freq: Status: Active Protocol: Activity Type Activity Date Activity User E-sign Co-sign Detail Recorded Client Recorded Date Recorded By Document 02/22/23 11:12 [id number] 02/22/23 11:13 Document 03/01/23 10:41 [id number] 03/01/23 10:42 02/22/23 03/01/23 11:12 10:41 Wound Care Center Nurse 3 #7- L TORRES cluster -Ulcer Cleansing Rinsed/ Rinsed/ Irrigated with Irrigated with Saline Saline -Foul Odor after Cleansing No No -Negative Pressure Wound Therapy N/A -Primary Dressing Applied Promogran Promogran Latisha Matter, Latisha Matter, Mepilex Border Mepilex Border -Mepilex Border 1 1 -Promogran Latisha Matter 1 1 Left -Tubular Bandage Double Layer Double Layer -Size of Tubigrip Used Size F Size E -Size E ($) 2 -Size F ($) 2 Pain Scale: 0-10 Numeric Is Patient Pain Free? Yes Yes - Visit Discharge Discharge Condition Stable Stable Ambulatory Status Ambulatory Ambulatory Transportation Private Auto Private Auto Medication Reconcilliation completed & Yes Yes provided to patient/care provider Clinical Summary of Care Provided Yes Yes Assessment/Plan Assessment/Plan (1) Chronic ulcer of left leg, limited to breakdown of skin: CODE(S): L97.921 - Non-pressure chronic ulcer of unspecified part of left lower leg limited to breakdown of skin (2) Venous insufficiency (chronic) (peripheral): CODE(S): I87.2 - Venous insufficiency (chronic) (peripheral) (3) Diabetes mellitus type 2, uncontrolled, with complications: CODE(S): E11.8 - Type 2 diabetes mellitus with unspecified complications; E11.65 - Type 2 diabetes mellitus with hyperglycemia (4) Edema of both lower extremities: CODE(S): R60.0 - Localized edema PLAN: Plan Patient was evaluated at the wound healing center today. Wound care will be moistened Latisha covered with [place] SAP daily. Ordered Circaid stocking for compression. Her insurance will not cover them. She is not physically able to get 30-40 mmHg compression stockings on her self. She has purchased compression stockings with 8-15 mmHg. Will have her wear them both on her left leg so she is getting 15-30 mmHg. Instructed her how to place them. She states they are too short and she would like to get a new pair of stockings but cannot afford them at this time. She is now wearing double tubigrips. Discussed with her that if she does not consistently wear compression, she will continue to have edema issue which can lead to skin breakdown. She verbalizes understanding. Encouraged diet low in carbohydrates and high in protein. She has T2D and is unsure what her last hgA1C was. [facility] states she has no labs. Unable to find one done at [facility]. Venous study from 02/10/22 showed Left small saphenous vein was patent and incompetent. The rest of the study was normal. Arterial study from 02/10/22 showed Right MARILU 1.06 and Left MARILU 1.07. Waveforms were Triphasic bilaterally. No signs of arterial disease. Follow up one week.
[2023-03-08 09:23] VITALS: BP 152/79; PULSE 108; RESP 18; TEMP 35.7; BMI 49.7
--- NOTE | 2023-03-08 11:29 | PN.PCM_ITS ---
History of Present Illness Date of Service: 03/08/23 Chief Complaint: Left anterior leg ulcers History of Wound: 57-year-old female who originally had a traumatic hematoma in 2012 to her left anterior leg and had an operative debridement and eventually had skin graft placement. She has been seen periodically at the wound center for chronic ulcers to her legs over the years. She has most recently been seeing Dr. Chang for her wound care. Her most significant issue at this time is her edema/lymphedema. When her edema becomes severe, she develops ulcers on her legs. She has a history of T2D, COPD, chronic venous insufficiency, cellulitis, chest pain, left ventricular aneurysm, HTN, Bipolar, ADHD, ABRAM, chronic pain syndrome, GERD. She currently denies fever, chills, nausea, vomiting. Progress of Wound: Left anterior leg ulcer is stable today. +2 pitting edema is stable with the double tubigrip. She finally purchased her compression stockings but they are not long enough. Objective Data Objective Data Vital Signs: Vital Signs Temp Pulse Resp BP 96.2 F L 108 H 18 152/79 H 03/08/23 09:23 03/08/23 09:23 03/08/23 09:23 03/08/23 09:23 Weight: 299 lb Body Mass Index (BMI) 49.7 Charges/Coding Procedures Integumentary 111xxx-113xx: 83893 Joie subq tissue 20 sq cm/< Debridement Note Debridement Note Wound debrided: Anterior leg proximal ulcer cluster Laterality: Left Wound Grade/Stage: Stage II Type of Debridement: Excisional debridement Anesthesia Used: 4% Lidocaine Solution Depth: Down to and including healthy tissue Percentage of wound debrided: 100 Instrument Used: 3mm curette Tissue Removed: Devitalized tissue and slough Severity: Limited To Skin Breakdown Amount of bleeding with debridement: Mild Bleeding Controlled with: Pressure and Compression and gauze Patient tolerated procedure: Patient tolerated procedure well Post-Debridement Measurements and Additional Note: Post-Debridement Measurements/Treatment WC - Nurse 1 - General Ulcer Assessment Start: 02/22/23 10:50 Freq: Status: Active Protocol: [email or web address] Activity Type Activity Date Activity User E-sign Co-sign Detail Recorded Client Recorded Date Recorded By Document 02/22/23 10:50 DL [id number] 02/22/23 10:55 DL Document 03/01/23 10:16 PL Desktop 04/12/23 10:25 PL Document 03/08/23 09:23 PL [id number] 03/08/23 09:32 PL 02/22/23 03/01/23 03/08/23 10:50 10:16 09:23 WC - Today's Visit Information Type of service Follow-up Visit Follow-up Visit Follow-up Visit (Physician/PROPERTY MANAGEMENT ASSISTANT (Physician/PROPERTY MANAGEMENT ASSISTANT (Physician/PROPERTY MANAGEMENT ASSISTANT ) ) ) Arrival Mode Ambulatory Ambulatory Ambulatory Transfer Assistance None None None Patient Identification Verified (Name & Yes Yes Yes ) Patient Requires Transmission-Based No No No Precautions Safety Precautions NA NA Finger Stick Blood Sugar(mg/dl) (if 168 indicated): Blood Sugar Stated by Patient Height and Weight Body Mass Index (BMI) 49.7 49.7 49.7 BMI Classification Obese Obese Obese Vital Signs Temperature (97.8 F-99.1 F) 96.8 F L 96.7 F L 96.2 F L Temperature Source Temporal Temporal Temporal Pulse Rate (60-100) 72 111 H 108 H Pulse Location Monitor Respiratory Rate (12-18) 18 18 18 Respiratory rate source Observation Blood Pressure (90/60-120/80) 121/74 H 148/71 H 152/79 H Blood Pressure Mean (mm Hg) 89 96 103 Source Monitor History Since Last Visit- (Skip if this is Patient's initial visit) Have you changed medications since your No No No last visit? Any new allergies or adverse reactions No No No Had a fall/change in ADL's that may No No No increase risk of falls Signs or symptoms of abuse and/or No No No neglect since last visit Have you been in the hospital since your No No No last visit? Has dressing in place as prescribed Yes Yes Yes Has compression in place as prescribed Yes N/A No Has offloadiing in place as prescribed N/A N/A N/A Experienced any changes in pain level or No No No management Pain Scale: 0-10 Numeric Is Patient Pain Free? Yes Yes Yes - Nurse 1 - General Ulcer Measurement Start: 02/22/23 10:50 Freq: Status: Active Protocol: Activity Type Activity Date Activity User E-sign Co-sign Detail Recorded Client Recorded Date Recorded By Document 02/22/23 10:50 DL [id number] 02/22/23 10:55 DL Document 03/01/23 10:16 PL Desktop 03/01/23 10:25 PL Document 03/08/23 09:23 PL [id number] 03/08/23 09:32 PL 02/22/23 03/01/23 03/08/23 10:50 10:16 09:23 Wound Center Nurse 1 #7- L TORRES cluster -Combined with other wound No -Current Size (cm) - Length 0.7 0.5 1.0 -Current Size (cm) - Width 1.1 0.5 1.0 -Current Size (cm) - Depth 0.1 0.2 0.3 -Total Square Cm 0.77 0.25 1.00 -Photo Taken No No No -Epithelialization Large 67-100% Small 1-33% -Tunneling No No -Undermining/Tunneling No No -Circular Undermining No No -Exudate Amt Small Medium Medium -Exudate Type Yellow/Green Serosanguineous Serosanguineous -Wound Margin Distinct, Flat & Intact Outline Attached -Granulation Amt Large (67-100%) Large (67-100%) Medium (34-66%) -Granulation Quality [place],Red [place] -Slough/Fibrin Yes Yes -Necrosis Amt Small (1-33%) Small (1-33%) Medium (34-66%) -Necrotic Tissue Type Adherent Slough Adherent Slough Adherent Slough -Structure Exposed N/A -Texture (Verónica-wound Skin Appearance) Scarring No Abnormality No Abnormality -Moisture (Verónica-wound Skin Appearance) No Abnormality No Abnormality No Abnormality -Color (Verónica-wound Skin Appearance) Hemosiderin No Abnormality No Abnormality Staining -Temperature (Verónica-wound Skin No Abnormality No Abnormality No Abnormality Appearance) (Pt Warm) (Pt Warm) (Pt Warm) -Tenderness on Palpation (Verónica-wound No No Skin Appearance) -Ulcer Cleansing Soap and Water Soap and Water Soap and Water -Foul Odor after Cleansing No No No -Anesthetic Used 5% Lidocaine 5% Lidocaine 5% Lidocaine Gel Gel Gel Left Calf (cm) 49.2 Left Ankle (cm) 22.3 WC - Nurse 2 - General Ulcer CM Notes Start: 02/22/23 10:50 Freq: Status: Active Protocol: Activity Type Activity Date Activity User E-sign Co-sign Detail Recorded Client Recorded Date Recorded By Document 02/22/23 11:01 [id number] 02/22/23 11:05 Document 03/01/23 10:39 [id number] 03/01/23 10:41 Document 03/08/23 09:58 [id number] 03/08/23 09:58 02/22/23 03/01/23 03/08/23 11:01 10:39 09:58 Wound Center Nurse 2 #7- L TORRES cluster -Time 11:01 10:40 09:58 -Correct Patient Yes Yes Yes -Correct Side, Site, Position Yes Yes Yes -Correct Procedure Yes Yes Yes -Procedure Performed Yes Yes Yes -Type of Procedure Debridement Debridement Debridement -Clinical Debridement Subcutaneous Subcutaneous Subcutaneous -Tissue Removed Subcutaneous Subcutaneous Subcutaneous -Post Debridement (cm) - Length 0.9 1.0 0.9 -Post Debridement (cm) - Width 1.1 1.0 0.9 -Post Debridement (cm) - Depth 0.1 0.1 0.1 -Total Square (Post) (cm) 0.99 1.00 0.81 -Area of Debridement (cm) - Length 0.9 1.0 0.9 -Area of Debridement (cm) - Width 1.1 1.0 0.9 -Total Square (Area) (cm) 0.99 1.00 0.81 -Tunneling No No No -Undermining/Tunneling No No -Circular Undermining No No No -Wound/Ulcer Outcome Not Healed Not Healed Not Healed -Ulcer Cleansing Rinsed/ Rinsed/ Rinsed/ Irrigated with Irrigated with Irrigated with Saline Saline Saline -Foul Odor after Cleansing No No No -Bioengineered Tissue No No -Bleeding Controlled with Pressure Pressure Pressure -Treatment Response Procedure Procedure Tolerated Well Tolerated Well -Offloading No No No -Debridement - Subq, 1st 20sq cm Yes Yes Yes Pain Scale: 0-10 Numeric Is Patient Pain Free? Yes Yes Yes WC - Nurse 3 - General Ulcer D/C NN Start: 02/22/23 10:50 Freq: Status: Active Protocol: Activity Type Activity Date Activity User E-sign Co-sign Detail Recorded Client Recorded Date Recorded By Document 02/22/23 11:12 [id number] 02/22/23 11:13 Document 03/01/23 10:41 [id number] 03/01/23 10:42 JF Document 03/08/23 10:16 [id number] 03/08/23 10:17 02/22/23 03/01/23 03/08/23 11:12 10:41 10:16 Wound Care Center Nurse 3 #7- L TORRES cluster -Ulcer Cleansing Rinsed/ Rinsed/ Rinsed/ Irrigated with Irrigated with Irrigated with Saline Saline Saline -Foul Odor after Cleansing No No No -Negative Pressure Wound Therapy N/A -Primary Dressing Applied Promogran Promogran Promogran Latisha Matter, Latisha Matter, Latisha Matter Mepilex Border Mepilex Border -Primary Dressing Covered/Secured with Dry Gauze -Mepilex Border 1 1 -Promogran Latisha Matter 1 1 1 Left -Lotion applied to leg before Yes compression wrap -Multi-Layered Wrap Application Multi-Layer Comp - Left ($) -Tubular Bandage Double Layer Double Layer -Size of Tubigrip Used Size F Size E -Size E ($) 2 -Size F ($) 2 Pain Scale: 0-10 Numeric Is Patient Pain Free? Yes Yes Yes WC - Visit Discharge Discharge Condition Stable Stable Stable Ambulatory Status Ambulatory Ambulatory Ambulatory Transportation Private Auto Private Auto Private Auto Medication Reconcilliation completed & Yes Yes Yes provided to patient/care provider Clinical Summary of Care Provided Yes Yes Yes Assessment/Plan Assessment/Plan (1) Chronic ulcer of left leg, limited to breakdown of skin: CODE(S): L97.921 - Non-pressure chronic ulcer of unspecified part of left lower leg limited to breakdown of skin (2) Venous insufficiency (chronic) (peripheral): CODE(S): I87.2 - Venous insufficiency (chronic) (peripheral) (3) Diabetes mellitus type 2, uncontrolled, with complications: CODE(S): E11.8 - Type 2 diabetes mellitus with unspecified complications; E11.65 - Type 2 diabetes mellitus with hyperglycemia (4) Edema of both lower extremities: CODE(S): R60.0 - Localized edema PLAN: Plan Patient was evaluated at the wound healing center today. Wound care will be moistened Latisha covered with [place] SAP daily. Ordered Circaid stocking for compression. Her insurance will not cover them. She is not physically able to get 30-40 mmHg compression stockings on her self. She has purchased compression stockings with 8-15 mmHg. Will have her wear them both on her left leg so she is getting 15-30 mmHg. Instructed her how to place them. She states they are too short and she would like to get a new pair of stockings but cannot afford them at this time. She is now wearing double tubigrips. Her edema is stable but the tubigrip stocking is not enough compression. Will use 3M 2 layer wraps this week for compression. She is not to get these wet. Discussed with her that if she does not consistently wear compression, she will continue to have edema issue which can lead to skin breakdown. She verbalizes understanding. Encouraged diet low in carbohydrates and high in protein. She has T2D and is unsure what her last hgA1C was. [facility] states she has no labs. Unable to find one done at [facility]. Venous study from 02/10/22 showed Left small saphenous vein was patent and incompetent. The rest of the study was normal. Arterial study from 02/10/22 showed Right MARILU 1.06 and Left MARILU 1.07. Waveforms were Triphasic bilaterally. No signs of arterial disease. Follow up one week.
--- NOTE | 2023-03-14 09:01 | WC ---
Hilda Snell NP reached out to me that she called in an ATB for this patient due to positive wound cultures. Patient was called and informed of Doxycycline sent to [facility] in [place]. Patient verbalized understanding and will be seen here tomorrow for her routine wound visit.
[2023-03-15 08:55] VITALS: BP 131/77; PULSE 73; RESP 20; TEMP 36.3; BMI 49.7
--- NOTE | 2023-03-15 09:43 | PCM.WC.PN ---
History of Present Illness Date of Service: 03/15/23 Chief Complaint: Left anterior leg ulcers History of Wound: 57-year-old female who originally had a traumatic hematoma in 2012 to her left anterior leg and had an operative debridement and eventually had skin graft placement. She has been seen periodically at the wound center for chronic ulcers to her legs over the years. She has most recently been seeing Dr. Chang for her wound care. Her most significant issue at this time is her edema/lymphedema. When her edema becomes severe, she develops ulcers on her legs. She has a history of T2D, COPD, chronic venous insufficiency, cellulitis, chest pain, left ventricular aneurysm, HTN, Bipolar, ADHD, ABRAM, chronic pain syndrome, GERD. She currently denies fever, chills, nausea, vomiting. Progress of Wound: Left anterior leg ulcer is not showing much improvement. Her edema is worse at +3-+4 because her 3M 2 layer wraps kept falling down, so she did not have good compression throughout the week. Objective Data Objective Data Vital Signs: Vital Signs Temp Pulse Resp BP 97.4 F L 73 20 H 131/77 H 03/15/23 08:55 03/15/23 08:55 03/15/23 08:55 03/15/23 08:55 Weight: 299 lb Body Mass Index (BMI) 49.7 Lab / Micro Data Micro: Microbiology 03/08/23 09:55 Wound Abcess - Leg, Left Gram Stain - Final 03/08/23 09:55 Wound Abcess - Leg, Left Wound Culture - Final Staphylococcus aureus 03/08/23 09:55 Wound Abcess - Leg, Left Anaerobic Culture - Final No anaerobic bacteria isolated. Charges/Coding Procedures Integumentary 111xxx-113xx: [id number] Joie subq tissue 20 sq cm/< Debridement Note Debridement Note Wound debrided: Anterior leg proximal ulcer cluster Laterality: Left Wound Grade/Stage: Stage II Type of Debridement: Excisional debridement Anesthesia Used: 4% Lidocaine Solution Depth: Down to and including healthy tissue Percentage of wound debrided: 100 Instrument Used: 3mm curette Tissue Removed: Devitalized tissue and slough Severity: Limited To Skin Breakdown Amount of bleeding with debridement: Mild Bleeding Controlled with: Pressure and Compression and gauze Patient tolerated procedure: Patient tolerated procedure well Post-Debridement Measurements and Additional Note: Post-Debridement Measurements/Treatment WC - Nurse 1 - General Ulcer Assessment Start: 02/22/23 10:50 Freq: Status: Active Protocol: WC.LOWEXT Activity Type Activity Date Activity User E-sign Co-sign Detail Recorded Client Recorded Date Recorded By Document 02/22/23 10:50 DL [id number] 02/22/23 10:55 DL Document 03/01/23 10:16 PL Desktop 03/01/23 10:25 PL Document 03/08/23 09:23 PL [id number] 03/08/23 09:32 PL Document 03/15/23 08:55 PL [id number] 03/15/23 09:08 PL 02/22/23 03/01/23 03/08/23 10:50 10:16 09:23 WC - Today's Visit Information Type of service Follow-up Visit Follow-up Visit Follow-up Visit (Physician/JAVA WEB ENGINEER (Physician/JAVA WEB ENGINEER (Physician/JAVA WEB ENGINEER ) ) ) Arrival Mode Ambulatory Ambulatory Ambulatory Transfer Assistance None None None Patient Identification Verified (Name & Yes Yes Yes ) Patient Requires Transmission-Based No No No Precautions Safety Precautions NA NA Finger Stick Blood Sugar(mg/dl) (if 168 indicated): Blood Sugar Stated by Patient Height and Weight Body Mass Index (BMI) 49.7 49.7 49.7 BMI Classification Obese Obese Obese Vital Signs Temperature (97.8 F-99.1 F) 96.8 F L 96.7 F L 96.2 F L Temperature Source Temporal Temporal Temporal Pulse Rate (60-100) 72 111 H 108 H Pulse Location Monitor Respiratory Rate (12-18) 18 18 18 Respiratory rate source Observation Blood Pressure (90/60-120/80) 121/74 H 148/71 H 152/79 H Blood Pressure Mean (mm Hg) 89 96 103 Source Monitor History Since Last Visit- (Skip if this is Patient's initial visit) Have you changed medications since your No No No last visit? Any new allergies or adverse reactions No No No Had a fall/change in ADL's that may No No No increase risk of falls Signs or symptoms of abuse and/or No No No neglect since last visit Have you been in the hospital since your No No No last visit? Has dressing in place as prescribed Yes Yes Yes Has compression in place as prescribed Yes N/A No Has offloadiing in place as prescribed N/A N/A N/A Experienced any changes in pain level or No No No management Pain Scale: 0-10 Numeric Is Patient Pain Free? Yes Yes Yes 03/15/23 08:55 WC - Today's Visit Information Type of service Follow-up Visit (Physician/JAVA WEB ENGINEER ) Arrival Mode Ambulatory Transfer Assistance None Patient Identification Verified (Name & Yes ) Patient Requires Transmission-Based No Precautions Safety Precautions NA Finger Stick Blood Sugar(mg/dl) (if 181 indicated): Blood Sugar Stated by Patient Height and Weight Body Mass Index (BMI) 49.7 BMI Classification Obese Vital Signs Temperature (97.8 F-99.1 F) 97.4 F L Temperature Source Temporal Pulse Rate (60-100) 73 Pulse Location Respiratory Rate (12-18) 20 H Respiratory rate source Blood Pressure (90/60-120/80) 131/77 H Blood Pressure Mean (mm Hg) 95 Source History Since Last Visit- (Skip if this is Patient's initial visit) Have you changed medications since your No last visit? Any new allergies or adverse reactions No Had a fall/change in ADL's that may No increase risk of falls Signs or symptoms of abuse and/or No neglect since last visit Have you been in the hospital since your No last visit? Has dressing in place as prescribed Yes Has compression in place as prescribed Yes Has offloadiing in place as prescribed N/A Experienced any changes in pain level or No management Pain Scale: 0-10 Numeric Is Patient Pain Free? Yes - Nurse 1 - General Ulcer Measurement Start: 02/22/23 10:50 Freq: Status: Active Protocol: Activity Type Activity Date Activity User E-sign Co-sign Detail Recorded Client Recorded Date Recorded By Document 02/22/23 10:50 DL [id number] 02/22/23 10:55 DL Document 03/01/23 10:16 PL Desktop 03/01/23 10:25 PL Document 03/08/23 09:23 PL [id number] 03/08/23 09:32 PL Document 03/15/23 08:55 PL [id number] 03/15/23 09:08 PL 02/22/23 03/01/23 03/08/23 10:50 10:16 09:23 Wound Center Nurse 1 #7- L TORRES cluster -Combined with other wound No -Current Size (cm) - Length 0.7 0.5 1.0 -Current Size (cm) - Width 1.1 0.5 1.0 -Current Size (cm) - Depth 0.1 0.2 0.3 -Total Square Cm 0.77 0.25 1.00 -Photo Taken No No No -Epithelialization Large 67-100% Small 1-33% -Tunneling No No -Undermining/Tunneling No No -Circular Undermining No No -Exudate Amt Small Medium Medium -Exudate Type Yellow/Green Serosanguineous Serosanguineous -Wound Margin Distinct, Flat & Intact Outline Attached -Granulation Amt Large (67-100%) Large (67-100%) Medium (34-66%) -Granulation Quality [place],Red [place] -Slough/Fibrin Yes Yes -Necrosis Amt Small (1-33%) Small (1-33%) Medium (34-66%) -Necrotic Tissue Type Adherent Slough Adherent Slough Adherent Slough -Structure Exposed N/A -Texture (Verónica-wound Skin Appearance) Scarring No Abnormality No Abnormality -Moisture (Verónica-wound Skin Appearance) No Abnormality No Abnormality No Abnormality -Color (Verónica-wound Skin Appearance) Hemosiderin No Abnormality No Abnormality Staining -Temperature (Verónica-wound Skin No Abnormality No Abnormality No Abnormality Appearance) (Pt Warm) (Pt Warm) (Pt Warm) -Tenderness on Palpation (Verónica-wound No No Skin Appearance) -Ulcer Cleansing Soap and Water Soap and Water Soap and Water -Foul Odor after Cleansing No No No -Anesthetic Used 5% Lidocaine 5% Lidocaine 5% Lidocaine Gel Gel Gel Left Calf (cm) 49.2 Left Ankle (cm) 22.3 03/15/23 08:55 Wound Center Nurse 1 #7- L TORRES cluster -Combined with other wound No -Current Size (cm) - Length 1.3 -Current Size (cm) - Width 1.7 -Current Size (cm) - Depth 0.2 -Total Square Cm 2.21 -Photo Taken No -Epithelialization Medium 34-66% -Tunneling No -Undermining/Tunneling No -Circular Undermining No -Exudate Amt Medium -Exudate Type Serosanguineous -Wound Margin -Granulation Amt Medium (34-66%) -Granulation Quality Pale,[place] -Slough/Fibrin Yes -Necrosis Amt Medium (34-66%) -Necrotic Tissue Type Adherent Slough -Structure Exposed -Texture (Verónica-wound Skin Appearance) No Abnormality -Moisture (Verónica-wound Skin Appearance) No Abnormality -Color (Verónica-wound Skin Appearance) No Abnormality -Temperature (Verónica-wound Skin No Abnormality Appearance) (Pt Warm) -Tenderness on Palpation (Verónica-wound Skin Appearance) -Ulcer Cleansing Soap and Water -Foul Odor after Cleansing No -Anesthetic Used 5% Lidocaine Gel Left Calf (cm) Left Ankle (cm) WC - Nurse 2 - General Ulcer CM Notes Start: 02/22/23 10:50 Freq: Status: Active Protocol: Activity Type Activity Date Activity User E-sign Co-sign Detail Recorded Client Recorded Date Recorded By Document 02/22/23 11:01 [id number] 02/22/23 11:05 Document 03/01/23 10:39 [id number] 03/01/23 10:41 Document 03/08/23 09:58 [id number] 03/08/23 09:58 Document 03/15/23 09:16 [id number] 03/15/23 09:20 02/22/23 03/01/23 03/08/23 11:01 10:39 09:58 Wound Center Nurse 2 #7- L TORRES cluster -Time 11:01 10:40 09:58 -Correct Patient Yes Yes Yes -Correct Side, Site, Position Yes Yes Yes -Correct Procedure Yes Yes Yes -Procedure Performed Yes Yes Yes -Type of Procedure Debridement Debridement Debridement -Clinical Debridement Subcutaneous Subcutaneous Subcutaneous -Tissue Removed Subcutaneous Subcutaneous Subcutaneous -Post Debridement (cm) - Length 0.9 1.0 0.9 -Post Debridement (cm) - Width 1.1 1.0 0.9 -Post Debridement (cm) - Depth 0.1 0.1 0.1 -Total Square (Post) (cm) 0.99 1.00 0.81 -Area of Debridement (cm) - Length 0.9 1.0 0.9 -Area of Debridement (cm) - Width 1.1 1.0 0.9 -Total Square (Area) (cm) 0.99 1.00 0.81 -Tunneling No No No -Undermining/Tunneling No No -Circular Undermining No No No -Wound/Ulcer Outcome Not Healed Not Healed Not Healed -Ulcer Cleansing Rinsed/ Rinsed/ Rinsed/ Irrigated with Irrigated with Irrigated with Saline Saline Saline -Foul Odor after Cleansing No No No -Bioengineered Tissue No No -Bleeding Controlled with Pressure Pressure Pressure -Treatment Response Procedure Procedure Tolerated Well Tolerated Well -Offloading No No No -Debridement - Subq, 1st 20sq cm Yes Yes Yes Pain Scale: 0-10 Numeric Is Patient Pain Free? Yes Yes Yes 03/15/23 09:16 Wound Center Nurse 2 #7- L TORRES cluster -Time 09:19 -Correct Patient Yes -Correct Side, Site, Position Yes -Correct Procedure Yes -Procedure Performed Yes -Type of Procedure Debridement -Clinical Debridement Subcutaneous -Tissue Removed Subcutaneous -Post Debridement (cm) - Length 1.5 -Post Debridement (cm) - Width 2.0 -Post Debridement (cm) - Depth 0.2 -Total Square (Post) (cm) 3.00 -Area of Debridement (cm) - Length 1.5 -Area of Debridement (cm) - Width 2.0 -Total Square (Area) (cm) 3.00 -Tunneling No -Undermining/Tunneling No -Circular Undermining No -Wound/Ulcer Outcome Not Healed -Ulcer Cleansing Rinsed/ Irrigated with Saline -Foul Odor after Cleansing No -Bioengineered Tissue No -Bleeding Controlled with Pressure -Treatment Response Procedure Tolerated Well -Offloading No -Debridement - Subq, 1st 20sq cm Yes Pain Scale: 0-10 Numeric Is Patient Pain Free? Yes - Nurse 3 - General Ulcer D/C NN Start: 02/22/23 10:50 Freq: Status: Active Protocol: Activity Type Activity Date Activity User E-sign Co-sign Detail Recorded Client Recorded Date Recorded By Document 02/22/23 11:12 [id number] 02/22/23 11:13 Document 03/01/23 10:41 [id number] 03/01/23 10:42 Document 03/08/23 10:16 [id number] 03/08/23 10:17 Document 03/15/23 09:20 [id number] 03/15/23 09:21 02/22/23 03/01/23 03/08/23 11:12 10:41 10:16 Wound Care Center Nurse 3 #7- L TORRES cluster -Ulcer Cleansing Rinsed/ Rinsed/ Rinsed/ Irrigated with Irrigated with Irrigated with Saline Saline Saline -Foul Odor after Cleansing No No No -Negative Pressure Wound Therapy N/A -Primary Dressing Applied Promogran Promogran Promogran Latisha Matter, Latisha Matter, Latisha Matter Mepilex Border Mepilex Border -Primary Dressing Covered/Secured with Dry Gauze -Mepilex Border 1 1 -Promogran Latisha Matter 1 1 1 Left -Lotion applied to leg before Yes compression wrap -Multi-Layered Wrap Application Multi-Layer Comp - Left ($) -Tubular Bandage Double Layer Double Layer -Size of Tubigrip Used Size F Size E -Size E ($) 2 -Size F ($) 2 Pain Scale: 0-10 Numeric Is Patient Pain Free? Yes Yes Yes WC - Visit Discharge Discharge Condition Stable Stable Stable Ambulatory Status Ambulatory Ambulatory Ambulatory Transportation Private Auto Private Auto Private Auto Medication Reconcilliation completed & Yes Yes Yes provided to patient/care provider Clinical Summary of Care Provided Yes Yes Yes 03/15/23 09:20 Wound Care Center Nurse 3 #7- L TORRES cluster -Ulcer Cleansing Rinsed/ Irrigated with Saline -Foul Odor after Cleansing No -Negative Pressure Wound Therapy -Primary Dressing Applied Promogran Latisha Matter -Primary Dressing Covered/Secured with Dry Gauze -Mepilex Border -Promogran Latisha Matter 1 Left -Lotion applied to leg before Yes compression wrap -Multi-Layered Wrap Application Multi-Layer Comp - Left ($) -Tubular Bandage -Size of Tubigrip Used -Size E ($) -Size F ($) Pain Scale: 0-10 Numeric Is Patient Pain Free? Yes WC - Visit Discharge Discharge Condition Stable Ambulatory Status Ambulatory Transportation Private Auto Medication Reconcilliation completed & Yes provided to patient/care provider Clinical Summary of Care Provided Yes Assessment/Plan Assessment/Plan (1) Chronic ulcer of left leg, limited to breakdown of skin: CODE(S): L97.921 - Non-pressure chronic ulcer of unspecified part of left lower leg limited to breakdown of skin (2) Venous insufficiency (chronic) (peripheral): CODE(S): I87.2 - Venous insufficiency (chronic) (peripheral) (3) Diabetes mellitus type 2, uncontrolled, with complications: CODE(S): E11.8 - Type 2 diabetes mellitus with unspecified complications; E11.65 - Type 2 diabetes mellitus with hyperglycemia (4) Edema of both lower extremities: CODE(S): R60.0 - Localized edema PLAN: Plan Patient was evaluated at the wound healing center today. Wound care will be moistened Latisha covered with [place] SAP 3 times per week. Ordered Circaid stocking for compression. Her insurance will not cover them. She is not physically able to get 30-40 mmHg compression stockings on her self. She has purchased compression stockings with 8-15 mmHg. Will have her wear them both on her left leg so she is getting 15-30 mmHg. Instructed her how to place them. She states they are too short and she would like to get a new pair of stockings but cannot afford them at this time. The 3M 2 layer wraps kept sliding down over the week, so we will have them changed by homehealth when they come to visit. Unsure if the 3M 2layer wraps were falling down due to a large decrease in her edema or because they were not wrapped well. Discussed with her that if she does not consistently wear compression, she will continue to have edema issue which can lead to skin breakdown. She verbalizes understanding. Encouraged diet low in carbohydrates and high in protein. She has T2D and is unsure what her last hgA1C was. [facility] states she has no labs. Unable to find one done at [facility]. Venous study from 02/10/22 showed Left small saphenous vein was patent and incompetent. The rest of the study was normal. Arterial study from 02/10/22 showed Right MARILU 1.06 and Left MARILU 1.07. Waveforms were Triphasic bilaterally. No signs of arterial disease. Follow up next Monday. Home health to change the dressings on Monday and Monday.
== END 2023-03-19 23:59 | disposition home or self-care (01) ==
LOC: WC 09:00
PROVIDERS: PCP Internal Medicine; Visit Provider Nurse Practitioner Family
DX: L97.921 Non-pressure chronic ulcer of unspecified part of left lower leg limited to breakdown of skin (principal); J44.9 Chronic obstructive pulmonary disease, unspecified; F31.9 Bipolar disorder, unspecified; E11.65 Type 2 diabetes mellitus with hyperglycemia; I89.0 Lymphedema, not elsewhere classified; I10 Essential (primary) hypertension; I87.2 Venous insufficiency (chronic) (peripheral); R60.0 Localized edema; G47.33 Obstructive sleep apnea (adult) (pediatric); K21.9 Gastro-esophageal reflux disease without esophagitis
CPT/HCPCS: 11042; 29581; 87070; 87075; 87077; 87186; 87205

== ENCOUNTER 2023-04-19 09:00 | Outpatient (RCR) | payer MEDICAID, SELFPAY ==
[2023-03-20 00:24] VITALS: BP 131/77; PULSE 73; RESP 20; TEMP 36.3; BMI 49.7
[2023-03-22 09:33] VITALS: BP 99/74; PULSE 82; RESP 20; TEMP 36.3; BMI 49.7
--- NOTE | 2023-03-22 12:31 | PCM.WC.PN ---
History of Present Illness Date of Service: 03/22/23 Chief Complaint: Left anterior leg ulcers History of Wound: 57-year-old female who originally had a traumatic hematoma in 2012 to her left anterior leg and had an operative debridement and eventually had skin graft placement. She has been seen periodically at the wound center for chronic ulcers to her legs over the years. She has most recently been seeing Dr. Chang for her wound care. Her most significant issue at this time is her edema/lymphedema. When her edema becomes severe, she develops ulcers on her legs. She has a history of T2D, COPD, chronic venous insufficiency, cellulitis, chest pain, left ventricular aneurysm, HTN, Bipolar, ADHD, ABRAM, chronic pain syndrome, GERD. Wound culture from 03/08/23 positive for Staphylococcus aureus and she was started on Doxycycline. She currently denies fever, chills, nausea, vomiting. Progress of Wound: Left anterior leg ulcer is slightly smaller. Her edema is slightly improved with the 3M 2 layer wraps staying in place and being changed on Fridays. Objective Data Objective Data Vital Signs: Vital Signs Temp Pulse Resp BP 97.4 F L 82 20 H 99/74 03/22/23 09:33 03/22/23 09:33 03/22/23 09:33 03/22/23 09:33 Weight: 299 lb Body Mass Index (BMI) 49.7 Charges/Coding Procedures Integumentary 111xxx-113xx: [id number] Joie subq tissue 20 sq cm/< Debridement Note Debridement Note Wound debrided: Anterior leg proximal ulcer cluster Laterality: Left Wound Grade/Stage: Stage II Type of Debridement: Excisional debridement Anesthesia Used: 4% Lidocaine Solution Depth: Down to and including healthy tissue Percentage of wound debrided: 100 Instrument Used: 3mm curette Tissue Removed: Devitalized tissue and slough Severity: Limited To Skin Breakdown Amount of bleeding with debridement: Mild Bleeding Controlled with: Pressure and Compression and gauze Patient tolerated procedure: Patient tolerated procedure well Post-Debridement Measurements and Additional Note: Post-Debridement Measurements/Treatment WC - Nurse 1 - General Ulcer Assessment Start: 03/22/23 09:30 Freq: Status: Active Protocol: PERRY Activity Type Activity Date Activity User E-sign Co-sign Detail Recorded Client Recorded Date Recorded By Document 03/22/23 09:33 PL [id number] 03/22/23 09:41 PL 03/22/23 09:33 - Today's Visit Information Type of service Follow-up Visit (Physician/PHYSICAL THERAPY TECHNICIAN ) Arrival Mode Ambulatory Transfer Assistance None Patient Identification Verified (Name & Yes ) Patient Requires Transmission-Based No Precautions Safety Precautions NA Finger Stick Blood Sugar(mg/dl) (if 300 indicated): Blood Sugar Stated by Patient Height and Weight Body Mass Index (BMI) 49.7 BMI Classification Obese Vital Signs Temperature (97.8 F-99.1 F) 97.4 F L Temperature Source Temporal Pulse Rate (60-100) 82 Respiratory Rate (12-18) 20 H Blood Pressure (90/60-120/80) 99/74 Blood Pressure Mean (mm Hg) 82 History Since Last Visit- (Skip if this is Patient's initial visit) Have you changed medications since your No last visit? Any new allergies or adverse reactions No Had a fall/change in ADL's that may No increase risk of falls Signs or symptoms of abuse and/or No neglect since last visit Have you been in the hospital since your No last visit? Has dressing in place as prescribed Yes Has compression in place as prescribed Yes Has offloadiing in place as prescribed N/A Experienced any changes in pain level or No management Pain Scale: 0-10 Numeric Is Patient Pain Free? Yes - Nurse 1 - General Ulcer Measurement Start: 03/22/23 09:30 Freq: Status: Active Protocol: Activity Type Activity Date Activity User E-sign Co-sign Detail Recorded Client Recorded Date Recorded By Document 03/22/23 09:33 [id number] 03/22/23 09:41 03/22/23 09:33 Wound Center Nurse 1 #7- L TORRES cluster -Combined with other wound No -Current Size (cm) - Length 1.2 -Current Size (cm) - Width 1.6 -Current Size (cm) - Depth 0.2 -Total Square Cm 1.92 -Photo Taken No -Tunneling No -Undermining/Tunneling No -Circular Undermining No -Exudate Amt Medium -Exudate Type Serosanguineous -Granulation Amt Small (1-33%) -Granulation Quality [place] -Slough/Fibrin Yes -Necrosis Amt Large (67-100%) -Necrotic Tissue Type Adherent Slough -Tenderness on Palpation (Verónica-wound No Skin Appearance) -Ulcer Cleansing Soap and Water -Foul Odor after Cleansing No -Anesthetic Used 5% Lidocaine Gel Left Calf (cm) 47 Left Ankle (cm) 24 WC - Nurse 2 - General Ulcer CM Notes Start: 03/22/23 09:30 Freq: Status: Active Protocol: Activity Type Activity Date Activity User E-sign Co-sign Detail Recorded Client Recorded Date Recorded By Document 03/22/23 10:10 [id number] 03/22/23 10:13 CARLOS 03/22/23 10:10 Wound Center Nurse 2 #7- L TORRES cluster -Time 10:12 -Correct Patient Yes -Correct Side, Site, Position Yes -Correct Procedure Yes -Procedure Performed Yes -Type of Procedure Debridement -Clinical Debridement Subcutaneous -Tissue Removed Subcutaneous -Post Debridement (cm) - Length 1.4 -Post Debridement (cm) - Width 1.8 -Post Debridement (cm) - Depth 0.3 -Total Square (Post) (cm) 2.52 -Area of Debridement (cm) - Length 1.4 -Area of Debridement (cm) - Width 1.8 -Total Square (Area) (cm) 2.52 -Tunneling No -Undermining/Tunneling No -Circular Undermining No -Wound/Ulcer Outcome Not Healed -Ulcer Cleansing Rinsed/ Irrigated with Saline -Foul Odor after Cleansing No -Bioengineered Tissue No -Bleeding Controlled with Pressure -Treatment Response Procedure Tolerated Well -Offloading No -Debridement - Subq, 1st 20sq cm Yes Pain Scale: 0-10 Numeric Is Patient Pain Free? Yes - Nurse 3 - General Ulcer D/C NN Start: 03/22/23 09:30 Freq: Status: Active Protocol: Activity Type Activity Date Activity User E-sign Co-sign Detail Recorded Client Recorded Date Recorded By Document 03/22/23 10:29 PL [id number] 03/22/23 10:30 PL 03/22/23 10:29 Wound Care Center Nurse 3 #7- L TORRES cluster -Ulcer Cleansing Soap and Water -Foul Odor after Cleansing No -Primary Dressing Applied Promogran Latisha Matter -Primary Dressing Covered/Secured with Dry Gauze -Promogran Latisha Matter 1 Left -Multi-Layered Wrap Application Multi-Layer Comp - Left ($) Pain Scale: 0-10 Numeric Is Patient Pain Free? Yes - Visit Discharge Discharge Condition Stable Ambulatory Status Ambulatory Assessment/Plan Assessment/Plan (1) Chronic ulcer of left leg, limited to breakdown of skin: CODE(S): L97.921 - Non-pressure chronic ulcer of unspecified part of left lower leg limited to breakdown of skin (2) Venous insufficiency (chronic) (peripheral): CODE(S): I87.2 - Venous insufficiency (chronic) (peripheral) (3) Diabetes mellitus type 2, uncontrolled, with complications: CODE(S): E11.8 - Type 2 diabetes mellitus with unspecified complications; E11.65 - Type 2 diabetes mellitus with hyperglycemia (4) Edema of both lower extremities: CODE(S): R60.0 - Localized edema PLAN: Plan Patient was evaluated at the wound healing center today. Wound care will be moistened Latisha covered with [place] SAP 3 times per week. Ordered Circaid stocking for compression. Her insurance will not cover them. She is not physically able to get 30-40 mmHg compression stockings on her self. She has purchased compression stockings with 8-15 mmHg. Will have her wear them both on her left leg so she is getting 15-30 mmHg. Instructed her how to place them. She states they are too short and she would like to get a new pair of stockings but cannot afford them at this time. The 3M 2 layer wraps to be changed on Fridays by home health when they come to visit. Discussed with her that if she does not consistently wear compression, she will continue to have edema issue which can lead to skin breakdown. She verbalizes understanding. Encouraged diet low in carbohydrates and high in protein. She has T2D and is unsure what her last hgA1C was. [facility] states she has no labs. Unable to find one done at [facility]. Venous study from 02/10/22 showed Left small saphenous vein was patent and incompetent. The rest of the study was normal. Arterial study from 02/10/22 showed Right MARILU 1.06 and Left MARILU 1.07. Waveforms were Triphasic bilaterally. No signs of arterial disease. Follow up next Monday. Home health to change the dressing and 3M 2 layer wraps on Monday.
[2023-03-29 09:15] VITALS: BP 137/77; PULSE 83; RESP 24; TEMP 35.7; BMI 49.7
--- NOTE | 2023-03-29 12:39 | PCM.WC.PN ---
History of Present Illness Date of Service: 03/29/23 Chief Complaint: Left anterior leg ulcers History of Wound: 57-year-old female who originally had a traumatic hematoma in 2012 to her left anterior leg and had an operative debridement and eventually had skin graft placement. She has been seen periodically at the wound center for chronic ulcers to her legs over the years. She has most recently been seeing Dr. Chang for her wound care. Her most significant issue at this time is her edema/lymphedema. When her edema becomes severe, she develops ulcers on her legs. She has a history of T2D, COPD, chronic venous insufficiency, cellulitis, chest pain, left ventricular aneurysm, HTN, Bipolar, ADHD, ABRAM, chronic pain syndrome, GERD. Wound culture from 03/08/23 positive for Staphylococcus aureus and she was started on Doxycycline. She currently denies fever, chills, nausea, vomiting. Progress of Wound: Left anterior leg ulcer is slightly smaller. Her edema is slightly improved with the 3M 2 layer wraps, but she states that they are still rolling down and home health is changing her dressing then using the same wraps as compression. Objective Data Objective Data Vital Signs: Vital Signs Temp Pulse Resp BP 96.3 F L 83 24 H 137/77 H 03/29/23 09:15 03/29/23 09:15 03/29/23 09:15 03/29/23 09:15 Weight: 299 lb Body Mass Index (BMI) 49.7 Charges/Coding Procedures Integumentary 111xxx-113xx: 18323 Joie subq tissue 20 sq cm/< Debridement Note Debridement Note Wound debrided: Anterior leg proximal ulcer cluster Laterality: Left Wound Grade/Stage: Stage II Type of Debridement: Excisional debridement Anesthesia Used: 4% Lidocaine Solution Depth: Down to and including healthy tissue Percentage of wound debrided: 100 Instrument Used: 3mm curette Tissue Removed: Devitalized tissue and slough Severity: Limited To Skin Breakdown Amount of bleeding with debridement: Mild Bleeding Controlled with: Pressure and Compression and gauze Patient tolerated procedure: Patient tolerated procedure well Post-Debridement Measurements and Additional Note: Post-Debridement Measurements/Treatment NILO - Nurse 1 - General Ulcer Assessment Start: 03/22/23 09:30 Freq: Status: Active Protocol: PERRY Activity Type Activity Date Activity User E-sign Co-sign Detail Recorded Client Recorded Date Recorded By Document 03/22/23 09:33 PL [id number] 03/22/23 09:41 PL Document 03/29/23 09:15 DL [id number] 03/29/23 09:22 DL 03/22/23 03/29/23 09:33 09:15 - Today's Visit Information Type of service Follow-up Visit Follow-up Visit (Physician/RADIO DESPATCHER (Physician/RADIO DESPATCHER ) ) Arrival Mode Ambulatory Ambulatory Transfer Assistance None None Patient Identification Verified (Name & Yes Yes ) Patient Requires Transmission-Based No No Precautions Safety Precautions NA Finger Stick Blood Sugar(mg/dl) (if 300 179 indicated): Blood Sugar Stated by Stated by Patient Patient Height and Weight Body Mass Index (BMI) 49.7 49.7 BMI Classification Obese Obese Vital Signs Temperature (97.8 F-99.1 F) 97.4 F L 96.3 F L Temperature Source Temporal Temporal Pulse Rate (60-100) 82 83 Pulse Location Monitor Respiratory Rate (12-18) 20 H 24 H Respiratory rate source Observation Blood Pressure (90/60-120/80) 99/74 137/77 H Blood Pressure Mean (mm Hg) 82 97 Source Monitor History Since Last Visit- (Skip if this is Patient's initial visit) Have you changed medications since your No No last visit? Any new allergies or adverse reactions No No Had a fall/change in ADL's that may No No increase risk of falls Signs or symptoms of abuse and/or No No neglect since last visit Have you been in the hospital since your No No last visit? Has dressing in place as prescribed Yes Yes Has compression in place as prescribed Yes Yes Has offloadiing in place as prescribed N/A N/A Experienced any changes in pain level or No No management Pain Scale: 0-10 Numeric Is Patient Pain Free? Yes Yes - Nurse 1 - General Ulcer Measurement Start: 03/22/23 09:30 Freq: Status: Active Protocol: Activity Type Activity Date Activity User E-sign Co-sign Detail Recorded Client Recorded Date Recorded By Document 03/22/23 09:33 PL [id number] 03/22/23 09:41 PL Document 03/29/23 09:15 DL [id number] 03/29/23 09:22 DL 03/22/23 03/29/23 09:33 09:15 Wound Center Nurse 1 #7- L TORRES cluster -Combined with other wound No -Current Size (cm) - Length 1.2 1.4 -Current Size (cm) - Width 1.6 1.4 -Current Size (cm) - Depth 0.2 0.3 -Total Square Cm 1.92 1.96 -Photo Taken No No -Tunneling No -Undermining/Tunneling No -Circular Undermining No -Exudate Amt Medium Medium -Exudate Type Serosanguineous Yellow/Green -Wound Margin Well Defined, Not Attached -Granulation Amt Small (1-33%) -Granulation Quality Hoskins Red -Slough/Fibrin Yes -Necrosis Amt Large (67-100%) Medium (34-66%) -Necrotic Tissue Type Adherent Slough Adherent Slough -Structure Exposed N/A -Texture (Verónica-wound Skin Appearance) Localized Edema ,Scarring -Moisture (Verónica-wound Skin Appearance) Dry/Scaly -Color (Verónica-wound Skin Appearance) Hemosiderin Staining -Temperature (Verónica-wound Skin No Abnormality Appearance) (Pt Warm) -Tenderness on Palpation (Verónica-wound No No Skin Appearance) -Ulcer Cleansing Soap and Water Soap and Water -Foul Odor after Cleansing No No -Anesthetic Used 5% Lidocaine 5% Lidocaine Gel Gel Left Calf (cm) 47 49.2 Left Ankle (cm) 24 22.5 WC - Nurse 2 - General Ulcer CM Notes Start: 03/22/23 09:30 Freq: Status: Active Protocol: Activity Type Activity Date Activity User E-sign Co-sign Detail Recorded Client Recorded Date Recorded By Document 03/22/23 10:10 [id number] 03/22/23 10:13 Document 03/29/23 09:35 [id number] 03/29/23 09:36 03/22/23 03/29/23 10:10 09:35 Wound Center Nurse 2 #7- L TRORES cluster -Time 10:12 09:36 -Correct Patient Yes Yes -Correct Side, Site, Position Yes Yes -Correct Procedure Yes Yes -Procedure Performed Yes Yes -Type of Procedure Debridement Debridement -Clinical Debridement Subcutaneous Subcutaneous -Tissue Removed Subcutaneous Subcutaneous -Post Debridement (cm) - Length 1.4 1.5 -Post Debridement (cm) - Width 1.8 2 -Post Debridement (cm) - Depth 0.3 0.2 -Total Square (Post) (cm) 2.52 3.0 -Area of Debridement (cm) - Length 1.4 1.5 -Area of Debridement (cm) - Width 1.8 2.0 -Total Square (Area) (cm) 2.52 3.00 -Tunneling No No -Undermining/Tunneling No No -Circular Undermining No No -Wound/Ulcer Outcome Not Healed Not Healed -Ulcer Cleansing Rinsed/ Rinsed/ Irrigated with Irrigated with Saline Saline -Foul Odor after Cleansing No No -Bioengineered Tissue No No -Bleeding Controlled with Pressure Pressure -Treatment Response Procedure Procedure Tolerated Well Tolerated Well -Offloading No No -Debridement - Subq, 1st 20sq cm Yes Yes Pain Scale: 0-10 Numeric Is Patient Pain Free? Yes Yes - Nurse 3 - General Ulcer D/C NN Start: 03/22/23 09:30 Freq: Status: Active Protocol: Activity Type Activity Date Activity User E-sign Co-sign Detail Recorded Client Recorded Date Recorded By Document 03/22/23 10:29 PL [id number] 03/22/23 10:30 PL Document 03/29/23 09:50 PL [id number] 03/29/23 09:51 PL 03/22/23 03/29/23 10:29 09:50 Wound Care Center Nurse 3 #7- L TORRES cluster -Ulcer Cleansing Soap and Water Rinsed/ Irrigated with Saline -Foul Odor after Cleansing No No -Primary Dressing Applied Promogran Silvercel Latisha Matter -Other Dressing ABD -Primary Dressing Covered/Secured with Dry Gauze -Promogran Latisha Matter 1 -Silvercel 1 Left -Multi-Layered Wrap Application Multi-Layer Multi-Layer Comp - Left ($) Comp - Left ($) Pain Scale: 0-10 Numeric Is Patient Pain Free? Yes Yes - Visit Discharge Discharge Condition Stable Stable Ambulatory Status Ambulatory Ambulatory Transportation Private Auto Assessment/Plan Assessment/Plan (1) Chronic ulcer of left leg, limited to breakdown of skin: CODE(S): L97.921 - Non-pressure chronic ulcer of unspecified part of left lower leg limited to breakdown of skin (2) Venous insufficiency (chronic) (peripheral): CODE(S): I87.2 - Venous insufficiency (chronic) (peripheral) (3) Diabetes mellitus type 2, uncontrolled, with complications: CODE(S): E11.8 - Type 2 diabetes mellitus with unspecified complications; E11.65 - Type 2 diabetes mellitus with hyperglycemia (4) Edema of both lower extremities: CODE(S): R60.0 - Localized edema PLAN: Plan Patient was evaluated at the wound healing center today. Wound care will be moistened Silverel covered with gauze 3 times per week. Ordered Circaid stocking for compression. Her insurance will not cover them. She is not physically able to get 30-40 mmHg compression stockings on her self. She has purchased compression stockings with 8-15 mmHg. Will have her wear them both on her left leg so she is getting 15-30 mmHg. Instructed her how to place them. She states they are too short and she would like to get a new pair of stockings but cannot afford them at this time. The 3M 2 layer wraps to be changed on Fridays and or Mondays by home health when they come to visit (If the wraps are still in place with good compression and not a lot of drainage on Monday, then it is ok to wait until Monday to change them). Discussed with her that if she does not consistently wear compression, she will continue to have edema issue which can lead to skin breakdown. She verbalizes understanding. Encouraged diet low in carbohydrates and high in protein. She has T2D and is unsure what her last hgA1C was. [facility] states she has no labs. Unable to find one done at [facility]. Venous study from 02/10/22 showed Left small saphenous vein was patent and incompetent. The rest of the study was normal. Arterial study from 02/10/22 showed Right MARILU 1.06 and Left MARILU 1.07. Waveforms were Triphasic bilaterally. No signs of arterial disease. Wound culture from 03/08/23 positive for MSSA. She was started on Doxycycline due to her PCN allergy. Follow up next Monday. Home health to change the dressing and 3M 2 layer wraps on Monday and or Monday.
[2023-04-05 09:16] VITALS: BP 121/78; PULSE 69; TEMP 35.6; BMI 49.7
--- NOTE | 2023-04-05 11:01 | PCM.WC.PN ---
History of Present Illness Date of Service: 04/05/23 Chief Complaint: Left anterior leg ulcers History of Wound: 57-year-old female who originally had a traumatic hematoma in 2012 to her left anterior leg and had an operative debridement and eventually had skin graft placement. She has been seen periodically at the wound center for chronic ulcers to her legs over the years. She has most recently been seeing Dr. Chang for her wound care. Her most significant issue at this time is her edema/lymphedema. When her edema becomes severe, she develops ulcers on her legs. She has a history of T2D, COPD, chronic venous insufficiency, cellulitis, chest pain, left ventricular aneurysm, HTN, Bipolar, ADHD, ABRAM, chronic pain syndrome, GERD. Wound culture from 03/08/23 positive for Staphylococcus aureus and she was started on Doxycycline. She currently denies fever, chills, nausea, vomiting. Progress of Wound: Left anterior leg ulcer is stable. She fell and has significant amount of bruising on her left knee and breast. She has not been wearing her compression because of the increased discomfort. Objective Data Objective Data Vital Signs: Vital Signs Temp Pulse Resp BP 96.1 F L 69 24 H 121/78 H 04/05/23 09:16 04/05/23 09:16 03/29/23 09:15 04/05/23 09:16 Weight: 299 lb Body Mass Index (BMI) 49.7 Charges/Coding Procedures Integumentary 111xxx-113xx: 11892 Joie subq tissue 20 sq cm/< Debridement Note Debridement Note Wound debrided: Anterior leg proximal ulcer cluster Laterality: Left Wound Grade/Stage: Stage II Type of Debridement: Excisional debridement Anesthesia Used: 4% Lidocaine Solution Depth: Down to and including healthy tissue Percentage of wound debrided: 100 Instrument Used: 3mm curette Tissue Removed: Devitalized tissue and slough Severity: Limited To Skin Breakdown Amount of bleeding with debridement: Mild Bleeding Controlled with: Pressure and Compression and gauze Patient tolerated procedure: Patient tolerated procedure well Post-Debridement Measurements and Additional Note: Post-Debridement Measurements/Treatment WC - Nurse 1 - General Ulcer Assessment Start: 03/22/23 09:30 Freq: Status: Active Protocol: PERRY Activity Type Activity Date Activity User E-sign Co-sign Detail Recorded Client Recorded Date Recorded By Document 03/22/23 09:33 PL [id number] 03/22/23 09:41 PL Document 03/29/23 09:15 DL [id number] 03/29/23 09:22 DL Document 04/05/23 09:16 AK [id number] 04/05/23 09:18 AK 03/22/23 03/29/23 04/05/23 09:33 09:15 09:16 WC - Today's Visit Information Type of service Follow-up Visit Follow-up Visit Follow-up Visit (Physician/PRODUCTION PACKAGER (Physician/PRODUCTION PACKAGER (Physician/PRODUCTION PACKAGER ) ) ) Arrival Mode Ambulatory Ambulatory Ambulatory, Walker Transfer Assistance None None Patient Identification Verified (Name & Yes Yes Yes ) Patient Requires Transmission-Based No No No Precautions Safety Precautions NA NA Finger Stick Blood Sugar(mg/dl) (if 300 179 indicated): Blood Sugar Stated by Stated by Patient Patient Height and Weight Body Mass Index (BMI) 49.7 49.7 49.7 BMI Classification Obese Obese Obese Vital Signs Temperature (97.8 F-99.1 F) 97.4 F L 96.3 F L 96.1 F L Temperature Source Temporal Temporal Temporal Pulse Rate (60-100) 82 83 69 Pulse Location Monitor Monitor Respiratory Rate (12-18) 20 H 24 H Respiratory rate source Observation Blood Pressure (90/60-120/80) 99/74 137/77 H 121/78 H Blood Pressure Mean (mm Hg) 82 97 92 Source Monitor Monitor History Since Last Visit- (Skip if this is Patient's initial visit) Have you changed medications since your No No No last visit? Any new allergies or adverse reactions No No No Had a fall/change in ADL's that may No No No increase risk of falls Signs or symptoms of abuse and/or No No No neglect since last visit Have you been in the hospital since your No No No last visit? Has dressing in place as prescribed Yes Yes Yes Has compression in place as prescribed Yes Yes No Has offloadiing in place as prescribed N/A N/A N/A Experienced any changes in pain level or No No No management Left Footwear Other Footwear (Comment) Right Footwear Other Footwear (Comment) Other Footwear flip flops Pain Scale: 0-10 Numeric Is Patient Pain Free? Yes Yes No WC - Nurse 1 - General Ulcer Measurement Start: 03/22/23 09:30 Freq: Status: Active Protocol: Activity Type Activity Date Activity User E-sign Co-sign Detail Recorded Client Recorded Date Recorded By Document 03/22/23 09:33 PL [id number] 03/22/23 09:41 PL Document 03/29/23 09:15 DL [id number] 03/29/23 09:22 DL Document 04/05/23 09:16 AK [id number] 04/05/23 09:18 AK 03/22/23 03/29/23 04/05/23 09:33 09:15 09:16 Wound Center Nurse 1 #7- L TORRES cluster -Combined with other wound No No -Current Size (cm) - Length 1.2 1.4 1.4 -Current Size (cm) - Width 1.6 1.4 2 -Current Size (cm) - Depth 0.2 0.3 0.2 -Total Square Cm 1.92 1.96 2.8 -Photo Taken No No Yes -Tunneling No No -Undermining/Tunneling No No -Circular Undermining No No -Change in Wound Grade/Stage No -Exudate Amt Medium Medium Large -Exudate Type Serosanguineous Yellow/Green Serosanguineous -Wound Margin Well Defined, Distinct, Not Attached Outline Attached -Granulation Amt Small (1-33%) Small (1-33%) -Granulation Quality Alva Red Alva -Slough/Fibrin Yes Yes -Necrosis Amt Large (67-100%) Medium (34-66%) Large (67-100%) -Necrotic Tissue Type Adherent Slough Adherent Slough Adherent Slough -Structure Exposed N/A N/A -Texture (Verónica-wound Skin Appearance) Localized Edema No Abnormality, ,Scarring Assessed -Moisture (Verónica-wound Skin Appearance) Dry/Scaly No Abnormality, Assessed -Color (Verónica-wound Skin Appearance) Hemosiderin No Abnormality, Staining Assessed -Temperature (Verónica-wound Skin No Abnormality No Abnormality Appearance) (Pt Warm) (Pt Warm) -Tenderness on Palpation (Verónica-wound No No No Skin Appearance) -Ulcer Cleansing Soap and Water Soap and Water Rinsed/ Irrigated with Saline -Foul Odor after Cleansing No No No -Anesthetic Used 5% Lidocaine 5% Lidocaine 5% Lidocaine Gel Gel Gel Lower Limb Edema Present No Right Calf (cm) 54 Right Ankle (cm) 23 Left Calf (cm) 47 49.2 52 Left Ankle (cm) 24 22.5 23 - Nurse 2 - General Ulcer CM Notes Start: 03/22/23 09:30 Freq: Status: Active Protocol: Activity Type Activity Date Activity User E-sign Co-sign Detail Recorded Client Recorded Date Recorded By Document 03/22/23 10:10 [id number] 03/22/23 10:13 Document 03/29/23 09:35 [id number] 03/29/23 09:36 Document 04/05/23 09:25 [id number] 04/05/23 09:27 03/22/23 03/29/23 04/05/23 10:10 09:35 09:25 Wound Center Nurse 2 #7- L TORRES cluster -Time 10:12 09:36 09:25 -Correct Patient Yes Yes Yes -Correct Side, Site, Position Yes Yes Yes -Correct Procedure Yes Yes Yes -Procedure Performed Yes Yes Yes -Type of Procedure Debridement Debridement Debridement -Clinical Debridement Subcutaneous Subcutaneous Subcutaneous -Tissue Removed Subcutaneous Subcutaneous Subcutaneous -Post Debridement (cm) - Length 1.4 1.5 1.5 -Post Debridement (cm) - Width 1.8 2 2.2 -Post Debridement (cm) - Depth 0.3 0.2 0.2 -Total Square (Post) (cm) 2.52 3.0 3.30 -Area of Debridement (cm) - Length 1.4 1.5 1.5 -Area of Debridement (cm) - Width 1.8 2.0 2.2 -Total Square (Area) (cm) 2.52 3.00 3.30 -Tunneling No No No -Undermining/Tunneling No No No -Circular Undermining No No No -Wound/Ulcer Outcome Not Healed Not Healed Not Healed -Ulcer Cleansing Rinsed/ Rinsed/ Rinsed/ Irrigated with Irrigated with Irrigated with Saline Saline Saline -Foul Odor after Cleansing No No No -Bioengineered Tissue No No No -Bleeding Controlled with Pressure Pressure Pressure -Treatment Response Procedure Procedure Procedure Tolerated Well Tolerated Well Tolerated Well -Offloading No No No -Debridement - Subq, 1st 20sq cm Yes Yes Yes Pain Scale: 0-10 Numeric Is Patient Pain Free? Yes Yes Yes - Nurse 3 - General Ulcer D/C NN Start: 03/22/23 09:30 Freq: Status: Active Protocol: Activity Type Activity Date Activity User E-sign Co-sign Detail Recorded Client Recorded Date Recorded By Document 03/22/23 10:29 PL [id number] 03/22/23 10:30 PL Document 03/29/23 09:50 PL [id number] 03/29/23 09:51 PL Document 04/05/23 09:40 DL [id number] 04/05/23 09:41 DL 03/22/23 03/29/23 04/05/23 10:29 09:50 09:40 Wound Care Center Nurse 3 #7- L TORRES cluster -Ulcer Cleansing Soap and Water Rinsed/ Rinsed/ Irrigated with Irrigated with Saline Saline -Foul Odor after Cleansing No No No -Primary Dressing Applied Promogran Silvercel Promogran Latisha Matter -Other Dressing ABD -Primary Dressing Covered/Secured with Dry Gauze Dry Gauze, Secured with Tape -Other Covering SILVESTRE -Promogran 1 -Promogran Latisha Matter 1 -Silvercel 1 Left -Multi-Layered Wrap Application Multi-Layer Multi-Layer Comp - Left ($) Comp - Left ($) -Compression Wrap Silvestre Wrap Treatment Response Procedure Tolerated Well Pain Scale: 0-10 Numeric Is Patient Pain Free? Yes Yes Yes WC - Visit Discharge Discharge Condition Stable Stable Stable Ambulatory Status Ambulatory Ambulatory Ambulatory Transportation Private Auto Private Auto Assessment/Plan Assessment/Plan (1) Chronic ulcer of left leg, limited to breakdown of skin: CODE(S): L97.921 - Non-pressure chronic ulcer of unspecified part of left lower leg limited to breakdown of skin (2) Venous insufficiency (chronic) (peripheral): CODE(S): I87.2 - Venous insufficiency (chronic) (peripheral) (3) Diabetes mellitus type 2, uncontrolled, with complications: CODE(S): E11.8 - Type 2 diabetes mellitus with unspecified complications; E11.65 - Type 2 diabetes mellitus with hyperglycemia (4) Edema of both lower extremities: CODE(S): R60.0 - Localized edema PLAN: Plan Patient was evaluated at the wound healing center today. Wound care will be moistened Silverel covered with gauze 3 times per week. Will hold the 3M 2 layer wraps due to the discomfort from the bruising she has from her fall. Will place a double SILVESTRE wrap and have it go over her knee for better compression on the bruised area. For her breast, recommend wearing sports bra for increased compression and she can place a dry wash cloth over the bruised are to give extra compression. Ordered Circaid stocking for compression. Her insurance will not cover them. She is not physically able to get 30-40 mmHg compression stockings on her self. She has purchased compression stockings with 8-15 mmHg. Will have her wear them both on her left leg so she is getting 15-30 mmHg. Instructed her how to place them. She states they are too short and she would like to get a new pair of stockings but cannot afford them at this time. Discussed with her that if she does not consistently wear compression, she will continue to have edema issue which can lead to skin breakdown. She verbalizes understanding. Encouraged diet low in carbohydrates and high in protein. She has T2D and is unsure what her last hgA1C was. [facility] states she has no labs. Unable to find one done at [facility]. Venous study from 02/10/22 showed Left small saphenous vein was patent and incompetent. The rest of the study was normal. Arterial study from 02/10/22 showed Right MARILU 1.06 and Left MARILU 1.07. Waveforms were Triphasic bilaterally. No signs of arterial disease. Wound culture from 03/08/23 positive for MSSA. She was started on Doxycycline due to her PCN allergy. Follow up one week. Home health to change the dressing 3 times per week.
[2023-04-12 09:08] VITALS: BP 142/71; PULSE 57; TEMP 36.2; BMI 49.7
--- NOTE | 2023-04-12 10:19 | PCM.WC.PN ---
History of Present Illness Date of Service: 04/12/23 Chief Complaint: Left anterior leg ulcers History of Wound: 57-year-old female who originally had a traumatic hematoma in 2012 to her left anterior leg and had an operative debridement and eventually had skin graft placement. She has been seen periodically at the wound center for chronic ulcers to her legs over the years. She has most recently been seeing Dr. Chang for her wound care. Her most significant issue at this time is her edema/lymphedema. When her edema becomes severe, she develops ulcers on her legs. She has a history of T2D, COPD, chronic venous insufficiency, cellulitis, chest pain, left ventricular aneurysm, HTN, Bipolar, ADHD, ABRAM, chronic pain syndrome, GERD. Wound culture from 03/08/23 positive for Staphylococcus aureus and she was started on Doxycycline. She currently denies fever, chills, nausea, vomiting. Progress of Wound: Left anterior leg ulcer is stable. She fell and has significant amount of bruising on her left knee and breast which has improved and is not as painful this week. She has tolerated the SILVESTRE wraps for compression. She continues to have +2-+3 non pitting edema on her bilateral lower legs. Objective Data Objective Data Vital Signs: Vital Signs Temp Pulse Resp BP 97.1 F L 57 L 24 H 142/71 H 04/12/23 09:08 04/12/23 09:08 03/29/23 09:15 04/12/23 09:08 Weight: 299 lb Body Mass Index (BMI) 49.7 Charges/Coding Procedures Integumentary [id number]: [id number] Joie subq tissue 20 sq cm/< Debridement Note Debridement Note Wound debrided: Anterior leg proximal ulcer cluster Laterality: Left Wound Grade/Stage: Stage II Type of Debridement: Excisional debridement Anesthesia Used: 4% Lidocaine Solution Depth: Down to and including healthy tissue Percentage of wound debrided: 100 Instrument Used: 3mm curette Tissue Removed: Devitalized tissue and slough Severity: Limited To Skin Breakdown Amount of bleeding with debridement: Mild Bleeding Controlled with: Pressure and Compression and gauze Patient tolerated procedure: Patient tolerated procedure well Post-Debridement Measurements and Additional Note: Post-Debridement Measurements/Treatment NILO - Nurse 1 - General Ulcer Assessment Start: 03/22/23 09:30 Freq: Status: Active Protocol: PERRY Activity Type Activity Date Activity User E-sign Co-sign Detail Recorded Client Recorded Date Recorded By Document 03/22/23 09:33 PL [id number] 03/22/23 09:41 PL Document 03/29/23 09:15 DL [id number] 03/29/23 09:22 DL Document 04/05/23 09:16 AK [id number] 04/05/23 09:18 AK Document 04/12/23 09:08 AK [id number] 04/12/23 09:10 AK 03/22/23 03/29/23 04/05/23 09:33 09:15 09:16 WC - Today's Visit Information Type of service Follow-up Visit Follow-up Visit Follow-up Visit (Physician/GEOPHYSICAL DRAFTER (Physician/GEOPHYSICAL DRAFTER (Physician/GEOPHYSICAL DRAFTER ) ) ) Arrival Mode Ambulatory Ambulatory Ambulatory, Walker Transfer Assistance None None Patient Identification Verified (Name & Yes Yes Yes ) Patient Requires Transmission-Based No No No Precautions Safety Precautions NA NA Finger Stick Blood Sugar(mg/dl) (if 300 179 indicated): Blood Sugar Stated by Stated by Patient Patient Height and Weight Body Mass Index (BMI) 49.7 49.7 49.7 BMI Classification Obese Obese Obese Vital Signs Temperature (97.8 F-99.1 F) 97.4 F L 96.3 F L 96.1 F L Temperature Source Temporal Temporal Temporal Pulse Rate (60-100) 82 83 69 Pulse Location Monitor Monitor Respiratory Rate (12-18) 20 H 24 H Respiratory rate source Observation Blood Pressure (90/60-120/80) 99/74 137/77 H 121/78 H Blood Pressure Mean (mm Hg) 82 97 92 Source Monitor Monitor History Since Last Visit- (Skip if this is Patient's initial visit) Have you changed medications since your No No No last visit? Any new allergies or adverse reactions No No No Had a fall/change in ADL's that may No No No increase risk of falls Signs or symptoms of abuse and/or No No No neglect since last visit Have you been in the hospital since your No No No last visit? Has dressing in place as prescribed Yes Yes Yes Has compression in place as prescribed Yes Yes No Has offloadiing in place as prescribed N/A N/A N/A Experienced any changes in pain level or No No No management Left Footwear Other Footwear (Comment) Right Footwear Other Footwear (Comment) Other Footwear flip flops Pain Scale: 0-10 Numeric Is Patient Pain Free? Yes Yes No 04/12/23 09:08 WC - Today's Visit Information Type of service Follow-up Visit (Physician/GEOPHYSICAL DRAFTER ) Arrival Mode Ambulatory,Cane Transfer Assistance Patient Identification Verified (Name & Yes ) Patient Requires Transmission-Based No Precautions Safety Precautions NA Finger Stick Blood Sugar(mg/dl) (if indicated): Blood Sugar Height and Weight Body Mass Index (BMI) 49.7 BMI Classification Obese Vital Signs Temperature (97.8 F-99.1 F) 97.1 F L Temperature Source Temporal Pulse Rate (60-100) 57 L Pulse Location Monitor Respiratory Rate (12-18) Respiratory rate source Blood Pressure (90/60-120/80) 142/71 H Blood Pressure Mean (mm Hg) 94 Source Monitor History Since Last Visit- (Skip if this is Patient's initial visit) Have you changed medications since your No last visit? Any new allergies or adverse reactions No Had a fall/change in ADL's that may No increase risk of falls Signs or symptoms of abuse and/or No neglect since last visit Have you been in the hospital since your No last visit? Has dressing in place as prescribed Yes Has compression in place as prescribed No Has offloadiing in place as prescribed N/A Experienced any changes in pain level or No management Left Footwear Regular Shoe Right Footwear Regular Shoe Other Footwear Pain Scale: 0-10 Numeric Is Patient Pain Free? No WC - Nurse 1 - General Ulcer Measurement Start: 03/22/23 09:30 Freq: Status: Active Protocol: Activity Type Activity Date Activity User E-sign Co-sign Detail Recorded Client Recorded Date Recorded By Document 03/22/23 09:33 PL [id number] 03/22/23 09:41 PL Document 03/29/23 09:15 DL [id number] 03/29/23 09:22 DL Document 04/05/23 09:16 AK [id number] 04/05/23 09:18 AK Document 04/12/23 09:08 AK [id number] 04/12/23 09:10 AK 03/22/23 03/29/23 04/05/23 09:33 09:15 09:16 Wound Center Nurse 1 #7- L TORRES cluster -Combined with other wound No No -Current Size (cm) - Length 1.2 1.4 1.4 -Current Size (cm) - Width 1.6 1.4 2 -Current Size (cm) - Depth 0.2 0.3 0.2 -Total Square Cm 1.92 1.96 2.8 -Photo Taken No No Yes -Tunneling No No -Undermining/Tunneling No No -Circular Undermining No No -Change in Wound Grade/Stage No -Exudate Amt Medium Medium Large -Exudate Type Serosanguineous Yellow/Green Serosanguineous -Wound Margin Well Defined, Distinct, Not Attached Outline Attached -Granulation Amt Small (1-33%) Small (1-33%) -Granulation Quality Narciso Pena Red Narciso Pena -Slough/Fibrin Yes Yes -Necrosis Amt Large (67-100%) Medium (34-66%) Large (67-100%) -Necrotic Tissue Type Adherent Slough Adherent Slough Adherent Slough -Structure Exposed N/A N/A -Texture (Verónica-wound Skin Appearance) Localized Edema No Abnormality, ,Scarring Assessed -Moisture (Verónica-wound Skin Appearance) Dry/Scaly No Abnormality, Assessed -Color (Verónica-wound Skin Appearance) Hemosiderin No Abnormality, Staining Assessed -Temperature (Verónica-wound Skin No Abnormality No Abnormality Appearance) (Pt Warm) (Pt Warm) -Tenderness on Palpation (Verónica-wound No No No Skin Appearance) -Ulcer Cleansing Soap and Water Soap and Water Rinsed/ Irrigated with Saline -Foul Odor after Cleansing No No No -Anesthetic Used 5% Lidocaine 5% Lidocaine 5% Lidocaine Gel Gel Gel Lower Limb Edema Present No Right Calf (cm) 54 Right Ankle (cm) 23 Left Calf (cm) 47 49.2 52 Left Ankle (cm) 24 22.5 23 04/12/23 09:08 Wound Center Nurse 1 #7- L TORRES cluster -Combined with other wound No -Current Size (cm) - Length 1.6 -Current Size (cm) - Width 1.7 -Current Size (cm) - Depth 0.2 -Total Square Cm 2.72 -Photo Taken Yes -Tunneling No -Undermining/Tunneling No -Circular Undermining No -Change in Wound Grade/Stage No -Exudate Amt Large -Exudate Type Serosanguineous -Wound Margin Distinct, Outline Attached -Granulation Amt Large (67-100%) -Granulation Quality Narciso Pena -Slough/Fibrin Yes -Necrosis Amt Small (1-33%) -Necrotic Tissue Type Adherent Slough -Structure Exposed N/A -Texture (Verónica-wound Skin Appearance) Assessed, Localized Edema -Moisture (Verónica-wound Skin Appearance) No Abnormality, Assessed -Color (Verónica-wound Skin Appearance) No Abnormality, Assessed -Temperature (Verónica-wound Skin No Abnormality Appearance) (Pt Warm) -Tenderness on Palpation (Verónica-wound No Skin Appearance) -Ulcer Cleansing Rinsed/ Irrigated with Saline -Foul Odor after Cleansing No -Anesthetic Used 5% Lidocaine Gel Lower Limb Edema Present Right Calf (cm) Right Ankle (cm) Left Calf (cm) 51 Left Ankle (cm) 23 WC - Nurse 2 - General Ulcer CM Notes Start: 03/22/23 09:30 Freq: Status: Active Protocol: Activity Type Activity Date Activity User E-sign Co-sign Detail Recorded Client Recorded Date Recorded By Document 03/22/23 10:10 [id number] 03/22/23 10:13 Document 03/29/23 09:35 [id number] 03/29/23 09:36 Document 04/05/23 09:25 [id number] 04/05/23 09:27 Document 04/12/23 09:22 [id number] 04/12/23 09:24 03/22/23 03/29/23 04/05/23 10:10 09:35 09:25 Wound Center Nurse 2 #7- L OTRRES cluster -Time 10:12 09:36 09:25 -Correct Patient Yes Yes Yes -Correct Side, Site, Position Yes Yes Yes -Correct Procedure Yes Yes Yes -Procedure Performed Yes Yes Yes -Type of Procedure Debridement Debridement Debridement -Clinical Debridement Subcutaneous Subcutaneous Subcutaneous -Tissue Removed Subcutaneous Subcutaneous Subcutaneous -Post Debridement (cm) - Length 1.4 1.5 1.5 -Post Debridement (cm) - Width 1.8 2 2.2 -Post Debridement (cm) - Depth 0.3 0.2 0.2 -Total Square (Post) (cm) 2.52 3.0 3.30 -Area of Debridement (cm) - Length 1.4 1.5 1.5 -Area of Debridement (cm) - Width 1.8 2.0 2.2 -Total Square (Area) (cm) 2.52 3.00 3.30 -Tunneling No No No -Undermining/Tunneling No No No -Circular Undermining No No No -Wound/Ulcer Outcome Not Healed Not Healed Not Healed -Ulcer Cleansing Rinsed/ Rinsed/ Rinsed/ Irrigated with Irrigated with Irrigated with Saline Saline Saline -Foul Odor after Cleansing No No No -Bioengineered Tissue No No No -Bleeding Controlled with Pressure Pressure Pressure -Treatment Response Procedure Procedure Procedure Tolerated Well Tolerated Well Tolerated Well -Offloading No No No -Debridement - Subq, 1st 20sq cm Yes Yes Yes Pain Scale: 0-10 Numeric Is Patient Pain Free? Yes Yes Yes 04/12/23 09:22 Wound Center Nurse 2 #7- L TORRES cluster -Time 09:23 -Correct Patient Yes -Correct Side, Site, Position Yes -Correct Procedure Yes -Procedure Performed Yes -Type of Procedure Debridement -Clinical Debridement Subcutaneous -Tissue Removed Dermis -Post Debridement (cm) - Length 2.0 -Post Debridement (cm) - Width 1.7 -Post Debridement (cm) - Depth 0.2 -Total Square (Post) (cm) 3.40 -Area of Debridement (cm) - Length 2.0 -Area of Debridement (cm) - Width 1.7 -Total Square (Area) (cm) 3.40 -Tunneling No -Undermining/Tunneling No -Circular Undermining No -Wound/Ulcer Outcome Not Healed -Ulcer Cleansing Rinsed/ Irrigated with Saline -Foul Odor after Cleansing No -Bioengineered Tissue No -Bleeding Controlled with Pressure -Treatment Response Procedure Tolerated Well -Offloading No -Debridement - Subq, 1st 20sq cm Yes Pain Scale: 0-10 Numeric Is Patient Pain Free? Yes - Nurse 3 - General Ulcer D/C NN Start: 03/22/23 09:30 Freq: Status: Active Protocol: Activity Type Activity Date Activity User E-sign Co-sign Detail Recorded Client Recorded Date Recorded By Document 03/22/23 10:29 PL [id number] 03/22/23 10:30 PL Document 03/29/23 09:50 PL [id number] 03/29/23 09:51 PL Document 04/05/23 09:40 DL [id number] 04/05/23 09:41 DL Document 04/12/23 09:29 DL [id number] 04/12/23 09:31 DL 03/22/23 03/29/23 04/05/23 10:29 09:50 09:40 Wound Care Center Nurse 3 #7- L TORRES cluster -Ulcer Cleansing Soap and Water Rinsed/ Rinsed/ Irrigated with Irrigated with Saline Saline -Foul Odor after Cleansing No No No -Primary Dressing Applied Promogran Silvercel Promogran Latisha Matter -Other Dressing ABD -Primary Dressing Covered/Secured with Dry Gauze Dry Gauze, Secured with Tape -Other Covering SILVESTRE -Mepilex Border -Promogran 1 -Promogran Latisha Matter 1 -Silvercel 1 Left -Multi-Layered Wrap Application Multi-Layer Multi-Layer Comp - Left ($) Comp - Left ($) -Compression Wrap Silvestre Wrap -Tubular Bandage -Size of Tubigrip Used -Size E ($) Treatment Response Procedure Tolerated Well Pain Scale: 0-10 Numeric Is Patient Pain Free? Yes Yes Yes WC - Visit Discharge Discharge Condition Stable Stable Stable Ambulatory Status Ambulatory Ambulatory Ambulatory Transportation Private Auto Private Auto Facility Type Orders Sent 04/12/23 09:29 Wound Care Center Nurse 3 #7- L TORRES cluster -Ulcer Cleansing Rinsed/ Irrigated with Saline -Foul Odor after Cleansing No -Primary Dressing Applied Mepilex Border, Promogran Latisha Matter -Other Dressing -Primary Dressing Covered/Secured with -Other Covering -Mepilex Border 1 -Promogran -Promogran Latisha Matter 1 -Silvercel Left -Multi-Layered Wrap Application -Compression Wrap -Tubular Bandage Double Layer -Size of Tubigrip Used Size E -Size E ($) 2 Treatment Response Pain Scale: 0-10 Numeric Is Patient Pain Free? Yes WC - Visit Discharge Discharge Condition Stable Ambulatory Status Ambulatory Transportation Private Auto Facility Type Home Health Orders Sent Yes Assessment/Plan Assessment/Plan (1) Chronic ulcer of left leg, limited to breakdown of skin: CODE(S): L97.921 - Non-pressure chronic ulcer of unspecified part of left lower leg limited to breakdown of skin (2) Edema of both lower extremities: CODE(S): R60.0 - Localized edema (3) Venous insufficiency (chronic) (peripheral): CODE(S): I87.2 - Venous insufficiency (chronic) (peripheral) (4) Diabetes mellitus type 2, uncontrolled, with complications: CODE(S): E11.8 - Type 2 diabetes mellitus with unspecified complications; E11.65 - Type 2 diabetes mellitus with hyperglycemia PLAN: Plan Patient was evaluated at the wound healing center today. Wound care will be moistened Silverel covered with gauze 3 daily. Will hold the 3M 2 layer wraps due to her going out of town and will not be able to get them changed and she has issues with the wrap falling down. Will place a double tubigrip to bilateral legs and and SILVESTRE wrap over her left knee for better compression on the bruised area. Ordered Circaid stocking for compression. Her insurance will not cover them. She is not physically able to get 30-40 mmHg compression stockings on her self. She has purchased compression stockings with 8-15 mmHg. Will have her wear them both on her left leg so she is getting 15-30 mmHg. Instructed her how to place them. She states they are too short and she would like to get a new pair of stockings but cannot afford them at this time. Discussed with her that if she does not consistently wear compression, she will continue to have edema issue which can lead to skin breakdown. She verbalizes understanding. Encouraged diet low in carbohydrates and high in protein. She has T2D and is unsure what her last hgA1C was. [facility] states she has no labs. Unable to find one done at [facility]. Venous study from 02/10/22 showed Left small saphenous vein was patent and incompetent. The rest of the study was normal. Arterial study from 02/10/22 showed Right MARILU 1.06 and Left MARILU 1.07. Waveforms were Triphasic bilaterally. No signs of arterial disease. Wound culture from 03/08/23 positive for MSSA. She was started on Doxycycline due to her PCN allergy. Follow up one week. Home health to change the dressing 3 times per week.
[2023-04-19 08:59] VITALS: BP 138/83; PULSE 79; RESP 20; TEMP 36.7; BMI 49.7
--- NOTE | 2023-04-19 10:25 | PCM.WC.PN ---
History of Present Illness Date of Service: 04/19/23 Chief Complaint: Left anterior leg ulcers History of Wound: 57-year-old female who originally had a traumatic hematoma in 2012 to her left anterior leg and had an operative debridement and eventually had skin graft placement. She has been seen periodically at the wound center for chronic ulcers to her legs over the years. She has most recently been seeing Dr. Chang for her wound care. Her most significant issue at this time is her edema/lymphedema. When her edema becomes severe, she develops ulcers on her legs. She has a history of T2D, COPD, chronic venous insufficiency, cellulitis, chest pain, left ventricular aneurysm, HTN, Bipolar, ADHD, ABRAM, chronic pain syndrome, GERD. Wound culture from 03/08/23 positive for Staphylococcus aureus and she was started on Doxycycline. She currently denies fever, chills, nausea, vomiting. Progress of Wound: Left anterior leg ulcer is stable. She fell and has significant amount of bruising on her left knee and breast which has improved and is not as painful this week. She has tolerated the SILVESTRE wraps for compression. She continues to have +2-+3 non pitting edema on her bilateral lower legs. It appears as if the compression is not staying up and is rolling down and putting extra pressure where the ulcer is located. Objective Data Objective Data Vital Signs: Vital Signs Temp Pulse Resp BP 98.1 F 79 20 H 138/83 H 04/19/23 08:59 04/19/23 08:59 04/19/23 08:59 04/19/23 08:59 Weight: 299 lb Body Mass Index (BMI) 49.7 Charges/Coding Procedures Integumentary 111xxx-113xx: [id number] Joie subq tissue 20 sq cm/< Debridement Note Debridement Note Wound debrided: Anterior leg proximal ulcer cluster Laterality: Left Wound Grade/Stage: Stage II Type of Debridement: Excisional debridement Anesthesia Used: 4% Lidocaine Solution Depth: Down to and including healthy tissue Percentage of wound debrided: 100 Instrument Used: 3mm curette Tissue Removed: Devitalized tissue and slough Severity: Limited To Skin Breakdown Amount of bleeding with debridement: Mild Bleeding Controlled with: Pressure and Compression and gauze Patient tolerated procedure: Patient tolerated procedure well Post-Debridement Measurements and Additional Note: Post-Debridement Measurements/Treatment WC - Nurse 1 - General Ulcer Assessment Start: 03/22/23 09:30 Freq: Status: Active Protocol: WC.LOWEXT Activity Type Activity Date Activity User E-sign Co-sign Detail Recorded Client Recorded Date Recorded By Document 03/22/23 09:33 PL [id number] 03/22/23 09:41 PL Document 03/29/23 09:15 DL [id number] 03/29/23 09:22 DL Document 04/05/23 09:16 AK [id number] 04/05/23 09:18 AK Document 04/12/23 09:08 AK [id number] 04/12/23 09:10 AK Document 04/19/23 08:59 DL [id number] 04/19/23 09:05 DL 03/22/23 03/29/23 04/05/23 09:33 09:15 09:16 WC - Today's Visit Information Type of service Follow-up Visit Follow-up Visit Follow-up Visit (Physician/FEDERAL AGENT (Physician/FEDERAL AGENT (Physician/FEDERAL AGENT ) ) ) Arrival Mode Ambulatory Ambulatory Ambulatory, Walker Transfer Assistance None None Patient Identification Verified (Name & Yes Yes Yes ) Patient Requires Transmission-Based No No No Precautions Safety Precautions NA NA Finger Stick Blood Sugar(mg/dl) (if 300 179 indicated): Blood Sugar Stated by Stated by Patient Patient Height and Weight Body Mass Index (BMI) 49.7 49.7 49.7 BMI Classification Obese Obese Obese Vital Signs Temperature (97.8 F-99.1 F) 97.4 F L 96.3 F L 96.1 F L Temperature Source Temporal Temporal Temporal Pulse Rate (60-100) 82 83 69 Pulse Location Monitor Monitor Respiratory Rate (12-18) 20 H 24 H Respiratory rate source Observation Blood Pressure (90/60-120/80) 99/74 137/77 H 121/78 H Blood Pressure Mean (mm Hg) 82 97 92 Source Monitor Monitor History Since Last Visit- (Skip if this is Patient's initial visit) Have you changed medications since your No No No last visit? Any new allergies or adverse reactions No No No Had a fall/change in ADL's that may No No No increase risk of falls Signs or symptoms of abuse and/or No No No neglect since last visit Have you been in the hospital since your No No No last visit? Has dressing in place as prescribed Yes Yes Yes Has compression in place as prescribed Yes Yes No Has offloadiing in place as prescribed N/A N/A N/A Experienced any changes in pain level or No No No management Left Footwear Other Footwear (Comment) Right Footwear Other Footwear (Comment) Other Footwear flip flops Pain Scale: 0-10 Numeric Is Patient Pain Free? Yes Yes No 04/12/23 04/19/23 09:08 08:59 - Today's Visit Information Type of service Follow-up Visit Follow-up Visit (Physician/FEDERAL AGENT (Physician/FEDERAL AGENT ) ) Arrival Mode Ambulatory,Cane Ambulatory Transfer Assistance None Patient Identification Verified (Name & Yes Yes ) Patient Requires Transmission-Based No No Precautions Safety Precautions NA Finger Stick Blood Sugar(mg/dl) (if 225 indicated): Blood Sugar Stated by Patient Height and Weight Body Mass Index (BMI) 49.7 49.7 BMI Classification Obese Obese Vital Signs Temperature (97.8 F-99.1 F) 97.1 F L 98.1 F Temperature Source Temporal Temporal Pulse Rate (60-100) 57 L 79 Pulse Location Monitor Monitor Respiratory Rate (12-18) 20 H Respiratory rate source Observation Blood Pressure (90/60-120/80) 142/71 H 138/83 H Blood Pressure Mean (mm Hg) 94 101 Source Monitor History Since Last Visit- (Skip if this is Patient's initial visit) Have you changed medications since your No No last visit? Any new allergies or adverse reactions No No Had a fall/change in ADL's that may No No increase risk of falls Signs or symptoms of abuse and/or No No neglect since last visit Have you been in the hospital since your No No last visit? Has dressing in place as prescribed Yes Yes Has compression in place as prescribed No Yes Has offloadiing in place as prescribed N/A N/A Experienced any changes in pain level or No No management Left Footwear Regular Shoe Right Footwear Regular Shoe Other Footwear Pain Scale: 0-10 Numeric Is Patient Pain Free? No Yes - Nurse 1 - General Ulcer Measurement Start: 03/22/23 09:30 Freq: Status: Active Protocol: Activity Type Activity Date Activity User E-sign Co-sign Detail Recorded Client Recorded Date Recorded By Document 03/22/23 09:33 PL [id number] 03/22/23 09:41 PL Document 03/29/23 09:15 DL [id number] 03/29/23 09:22 DL Document 04/05/23 09:16 AK [id number] 04/05/23 09:18 AK Document 04/12/23 09:08 AK [id number] 04/12/23 09:10 AK Document 04/19/23 08:59 DL [id number] 04/19/23 09:05 DL 03/22/23 03/29/23 04/05/23 09:33 09:15 09:16 Wound Center Nurse 1 #7- L TORRES cluster -Combined with other wound No No -Current Size (cm) - Length 1.2 1.4 1.4 -Current Size (cm) - Width 1.6 1.4 2 -Current Size (cm) - Depth 0.2 0.3 0.2 -Total Square Cm 1.92 1.96 2.8 -Photo Taken No No Yes -Tunneling No No -Undermining/Tunneling No No -Circular Undermining No No -Change in Wound Grade/Stage No -Exudate Amt Medium Medium Large -Exudate Type Serosanguineous Yellow/Green Serosanguineous -Wound Margin Well Defined, Distinct, Not Attached Outline Attached -Granulation Amt Small (1-33%) Small (1-33%) -Granulation Quality Clare Red Clare -Slough/Fibrin Yes Yes -Necrosis Amt Large (67-100%) Medium (34-66%) Large (67-100%) -Necrotic Tissue Type Adherent Slough Adherent Slough Adherent Slough -Structure Exposed N/A N/A -Texture (Verónica-wound Skin Appearance) Localized Edema No Abnormality, ,Scarring Assessed -Moisture (Verónica-wound Skin Appearance) Dry/Scaly No Abnormality, Assessed -Color (Verónica-wound Skin Appearance) Hemosiderin No Abnormality, Staining Assessed -Temperature (Verónica-wound Skin No Abnormality No Abnormality Appearance) (Pt Warm) (Pt Warm) -Tenderness on Palpation (Verónica-wound No No No Skin Appearance) -Ulcer Cleansing Soap and Water Soap and Water Rinsed/ Irrigated with Saline -Foul Odor after Cleansing No No No -Anesthetic Used 5% Lidocaine 5% Lidocaine 5% Lidocaine Gel Gel Gel Lower Limb Edema Present No Right Calf (cm) 54 Right Ankle (cm) 23 Left Calf (cm) 47 49.2 52 Left Ankle (cm) 24 22.5 23 04/12/23 04/19/23 09:08 08:59 Wound Center Nurse 1 #7- L TORRES cluster -Combined with other wound No -Current Size (cm) - Length 1.6 1.8 -Current Size (cm) - Width 1.7 1.3 -Current Size (cm) - Depth 0.2 0.2 -Total Square Cm 2.72 2.34 -Photo Taken Yes Yes -Tunneling No -Undermining/Tunneling No -Circular Undermining No -Change in Wound Grade/Stage No -Exudate Amt Large Medium -Exudate Type Serosanguineous Yellow/Green -Wound Margin Distinct, Distinct, Outline Outline Attached Attached -Granulation Amt Large (67-100%) Small (1-33%) -Granulation Quality Clare Clare -Slough/Fibrin Yes -Necrosis Amt Small (1-33%) Large (67-100%) -Necrotic Tissue Type Adherent Slough Adherent Slough -Structure Exposed N/A N/A -Texture (Verónica-wound Skin Appearance) Assessed, Scarring Localized Edema -Moisture (Verónica-wound Skin Appearance) No Abnormality, Dry/Scaly Assessed -Color (Verónica-wound Skin Appearance) No Abnormality, Hemosiderin Assessed Staining -Temperature (Verónica-wound Skin No Abnormality No Abnormality Appearance) (Pt Warm) (Pt Warm) -Tenderness on Palpation (Verónica-wound No No Skin Appearance) -Ulcer Cleansing Rinsed/ Soap and Water Irrigated with Saline -Foul Odor after Cleansing No No -Anesthetic Used 5% Lidocaine 5% Lidocaine Gel Gel Lower Limb Edema Present Right Calf (cm) Right Ankle (cm) Left Calf (cm) 51 47 Left Ankle (cm) 23 22 - Nurse 2 - General Ulcer CM Notes Start: 03/22/23 09:30 Freq: Status: Active Protocol: Activity Type Activity Date Activity User E-sign Co-sign Detail Recorded Client Recorded Date Recorded By Document 03/22/23 10:10 CARLOS [id number] 03/22/23 10:13 CARLOS Document 03/29/23 09:35 CARLOS [id number] 03/29/23 09:36 CARLOS Document 04/05/23 09:25 CARLOS [id number] 04/05/23 09:27 Document 04/12/23 09:22 [id number] 04/12/23 09:24 Document 04/19/23 09:27 [id number] 04/19/23 09:29 03/22/23 03/29/23 04/05/23 10:10 09:35 09:25 Wound Center Nurse 2 #7- L BRIAN cluster -Time 10:12 09:36 09:25 -Correct Patient Yes Yes Yes -Correct Side, Site, Position Yes Yes Yes -Correct Procedure Yes Yes Yes -Procedure Performed Yes Yes Yes -Type of Procedure Debridement Debridement Debridement -Clinical Debridement Subcutaneous Subcutaneous Subcutaneous -Tissue Removed Subcutaneous Subcutaneous Subcutaneous -Post Debridement (cm) - Length 1.4 1.5 1.5 -Post Debridement (cm) - Width 1.8 2 2.2 -Post Debridement (cm) - Depth 0.3 0.2 0.2 -Total Square (Post) (cm) 2.52 3.0 3.30 -Area of Debridement (cm) - Length 1.4 1.5 1.5 -Area of Debridement (cm) - Width 1.8 2.0 2.2 -Total Square (Area) (cm) 2.52 3.00 3.30 -Tunneling No No No -Undermining/Tunneling No No No -Circular Undermining No No No -Wound/Ulcer Outcome Not Healed Not Healed Not Healed -Ulcer Cleansing Rinsed/ Rinsed/ Rinsed/ Irrigated with Irrigated with Irrigated with Saline Saline Saline -Foul Odor after Cleansing No No No -Bioengineered Tissue No No No -Bleeding Controlled with Pressure Pressure Pressure -Treatment Response Procedure Procedure Procedure Tolerated Well Tolerated Well Tolerated Well -Offloading No No No -Debridement - Subq, 1st 20sq cm Yes Yes Yes Pain Scale: 0-10 Numeric Is Patient Pain Free? Yes Yes Yes 04/12/23 04/19/23 09:22 09:27 Wound Center Nurse 2 #7- L TORRES cluster -Time 09: 09:28 -Correct Patient Yes Yes -Correct Side, Site, Position Yes Yes -Correct Procedure Yes Yes -Procedure Performed Yes Yes -Type of Procedure Debridement Debridement -Clinical Debridement Subcutaneous Subcutaneous -Tissue Removed Dermis Subcutaneous -Post Debridement (cm) - Length 2.0 1.9 -Post Debridement (cm) - Width 1.7 1.6 -Post Debridement (cm) - Depth 0.2 0.2 -Total Square (Post) (cm) 3.40 3.04 -Area of Debridement (cm) - Length 2.0 1.9 -Area of Debridement (cm) - Width 1.7 1.6 -Total Square (Area) (cm) 3.40 3.04 -Tunneling No No -Undermining/Tunneling No No -Circular Undermining No No -Wound/Ulcer Outcome Not Healed Not Healed -Ulcer Cleansing Rinsed/ Rinsed/ Irrigated with Irrigated with Saline Saline -Foul Odor after Cleansing No No -Bioengineered Tissue No No -Bleeding Controlled with Pressure Pressure -Treatment Response Procedure Procedure Tolerated Well Tolerated Well -Offloading No No -Debridement - Subq, 1st 20sq cm Yes Yes Pain Scale: 0-10 Numeric Is Patient Pain Free? Yes Yes WC - Nurse 3 - General Ulcer D/C NN Start: 03/22/23 09:30 Freq: Status: Active Protocol: Activity Type Activity Date Activity User E-sign Co-sign Detail Recorded Client Recorded Date Recorded By Document 03/22/23 10:29 PL [id number] 03/22/23 10:30 PL Document 03/29/23 09:50 PL [id number] 03/29/23 09:51 PL Document 04/05/23 09:40 DL [id number] 04/05/23 09:41 DL Document 04/12/23 09:29 DL [id number] 04/12/23 09:31 DL Document 04/19/23 09:46 DL [id number] 04/19/23 09:47 DL 03/22/23 03/29/23 04/05/23 10:29 09:50 09:40 Wound Care Center Nurse 3 #7- L TORRES cluster -Ulcer Cleansing Soap and Water Rinsed/ Rinsed/ Irrigated with Irrigated with Saline Saline -Foul Odor after Cleansing No No No -Primary Dressing Applied Promogran Silvercel Promogran Latisha Matter -Other Dressing ABD -Primary Dressing Covered/Secured with Dry Gauze Dry Gauze, Secured with Tape -Other Covering SILVESTRE -Mepilex Border -Promogran 1 -Promogran Latisha Matter 1 -Silvercel 1 Left -Multi-Layered Wrap Application Multi-Layer Multi-Layer Comp - Left ($) Comp - Left ($) -Compression Wrap Silvestre Wrap -Tubular Bandage -Size of Tubigrip Used -Size E ($) Treatment Response Procedure Tolerated Well Pain Scale: 0-10 Numeric Is Patient Pain Free? Yes Yes Yes WC - Visit Discharge Discharge Condition Stable Stable Stable Ambulatory Status Ambulatory Ambulatory Ambulatory Transportation Private Auto [facility] Auto Facility Type Orders Sent 04/12/23 04/19/23 09:29 09:46 Wound Care Center Nurse 3 #7- L TORRES cluster -Ulcer Cleansing Rinsed/ Rinsed/ Irrigated with Irrigated with Saline Saline -Foul Odor after Cleansing No No -Primary Dressing Applied Mepilex Border, Mepilex Border, Promogran Promogran Latisha Matter Latisha Matter -Other Dressing -Primary Dressing Covered/Secured with -Other Covering -Mepilex Border 1 1 -Promogran -Promogran Latisha Matter 1 1 -Silvercel Left -Multi-Layered Wrap Application -Compression Wrap -Tubular Bandage Double Layer Double Layer -Size of Tubigrip Used Size E Size E -Size E ($) 2 2 Treatment Response Procedure Tolerated Well Pain Scale: 0-10 Numeric Is Patient Pain Free? Yes Yes WC - Visit Discharge Discharge Condition Stable Stable Ambulatory Status Ambulatory Ambulatory, Walker Transportation [facility] Facility Type Home Health Orders Sent Yes Assessment/Plan Assessment/Plan (1) Chronic ulcer of left leg, limited to breakdown of skin: CODE(S): L97.921 - Non-pressure chronic ulcer of unspecified part of left lower leg limited to breakdown of skin (2) Edema of both lower extremities: CODE(S): R60.0 - Localized edema (3) Venous insufficiency (chronic) (peripheral): CODE(S): I87.2 - Venous insufficiency (chronic) (peripheral) (4) Diabetes mellitus type 2, uncontrolled, with complications: CODE(S): E11.8 - Type 2 diabetes mellitus with unspecified complications; E11.65 - Type 2 diabetes mellitus with hyperglycemia PLAN: Plan Patient was evaluated at the wound healing center today. Wound care will be moistened Latisha topped with [place] SAP dressing daily. Compression - Double tubigrip topped with SILVESTRE wrap. Ordered Circaid stocking for compression. Her insurance will not cover them. She is not physically able to get 30-40 mmHg compression stockings on her self. She has purchased compression stockings with 8-15 mmHg. Will have her wear them both on her left leg so she is getting 15-30 mmHg. Instructed her how to place them. She states they are too short and she would like to get a new pair of stockings but cannot afford them at this time. Discussed with her that if she does not consistently wear compression, she will continue to have edema issue which can lead to skin breakdown. She verbalizes understanding. Encouraged diet low in carbohydrates and high in protein. She has T2D and is unsure what her last hgA1C was. [facility] states she has no labs. Unable to find one done at [facility]. Venous study from 02/10/22 showed Left small saphenous vein was patent and incompetent. The rest of the study was normal. Arterial study from 02/10/22 showed Right MARILU 1.06 and Left MARILU 1.07. Waveforms were Triphasic bilaterally. No signs of arterial disease. Wound culture from 03/08/23 positive for MSSA. She was started on Doxycycline due to her PCN allergy. Follow up one week.
== END 2023-04-19 23:59 | disposition home or self-care (01) ==
LOC: WC 09:00
PROVIDERS: PCP Internal Medicine; Visit Provider Nurse Practitioner Family
DX: L97.921 Non-pressure chronic ulcer of unspecified part of left lower leg limited to breakdown of skin (principal); J44.9 Chronic obstructive pulmonary disease, unspecified; E11.8 Type 2 diabetes mellitus with unspecified complications; I89.0 Lymphedema, not elsewhere classified; I10 Essential (primary) hypertension; I87.2 Venous insufficiency (chronic) (peripheral); R60.0 Localized edema
CPT/HCPCS: 11042; 29581

== ENCOUNTER 2023-05-08 08:12 | Emergency (ER) | payer MEDICAID, SELFPAY ==
[2023-05-08 08:14] VITALS: BP 138/87; PULSE 64; RESP 14; TEMP 35.6; O2SAT 99; BMI 50.0
[2023-05-08 08:27] VITALS: BP 138/87; PULSE 64; RESP 14; TEMP 35.5; O2SAT 99
--- NOTE | 2023-05-08 08:50 | EX.ED.DYSGE1 ---
HPI History of Present Illness Chief Complaint: General Illness Informant: patient Narrative Narrative: 57-year-old female who has had a chronic wound on her left lower leg and follows with the wound center, was placed on antibiotics 1 week ago for this wound, she has intolerances to multiple antibiotics and I am assuming that is why she was placed on the one she is currently taking, omadacycline. She states around 2 days after she started taking it, she started experiencing the following symptoms: Abdominal pain, nausea, vomiting, diarrhea, shortness of breath, and trouble sleeping. It sounds like she is having trouble sleeping because she was told to take this medication on an empty stomach and not to eat or drink within 4 hours of taking the pill, so instead of altering her diet, she is setting alarm to wake up at 1:00 AM to take this pill somewhere between 1 and 2. Subsequently within about 2 hours of this, she often will vomit, and vomits at no other times during the day. Diarrhea has been 5 times per day plus or minus, loose not watery, no blood or melena. She states the abdominal discomfort is periumbilical and feels like a cramp and is not severe. With regards to the shortness of breath, she has a history of COPD, and she states she is just a little more short of breath than usual and it is usually midday, and she turns her home oxygen up a bit and has done no other treatments and that treats it successfully. She denies any changes in her chronic cough, she denies sputum production, chest discomfort, or changes in the wound on her left lower extremity. When asked about fevers she states she had 1 last night that was 101.2. She did not take anything for it such as an antipyretic. [facility] Medical History ADHD (attention deficit hyperactivity disorder) Arthritis Asthma Back pain Benign hypertension Bipolar disorder Chest pain COPD (chronic obstructive pulmonary disease) Depression Diabetes Diabetes mellitus type 2, uncontrolled, with complications Essential hypertension Fatigue GERD (gastroesophageal reflux disease) Hemorrhoids Knee pain Migraines Obstructive sleep apnea Open wound of left lower extremity Pain syndrome, chronic PTSD (post-traumatic stress disorder) Schizo affective schizophrenia Stasis dermatitis of both legs Super obese Venous insufficiency of both lower extremities Home Medications bupropion HCl 300 mg 24 hr tablet, extended release 450 mg PO DAILY mental health 04/16/17 [History Last Taken 07/07/18] albuterol sulfate 90 mcg/actuation aerosol inhaler 2 puff inhalation Q4H PRN PRN Sob &/Or Wheezing 05/29/18 [History Last Taken 07/07/18] glimepiride 2 mg tablet 4 mg PO BID diabetes 09/20/18 [History Last Taken Unknown] dicyclomine 10 mg capsule 20 mg PO TIDAC #20 caps 07/28/19 [Rx Last Taken Unknown] escitalopram oxalate 10 mg tablet 20 mg PO DAILY mental health 08/04/19 [History Last Taken Unknown] fluticasone propionate 50 mcg/actuation nasal spray,suspension 2 spray NASAL DAILY allergies 08/04/19 [History Last Taken Unknown] tizanidine 4 mg capsule 4 mg PO BID PRN Muscle Spasm 07/15/20 [History Last Taken Unknown] aspirin 81 mg chewable tablet 81 mg PO DAILY@0800 07/17/20 [Rx Last Taken Unknown] nadolol 80 mg tablet 80 mg PO BID high blood pressure 07/08/21 [History Last Taken Unknown] buspirone 10 mg tablet 20 mg PO TID 01/25/22 [History Last Taken Unknown] cetirizine 10 mg tablet (Zyrtec) 10 mg PO DAILY 01/25/22 [History Last Taken Unknown] colchicine 0.6 mg tablet 0.6 mg PO DAILY 01/25/22 [History Last Taken Unknown] guaifenesin 600 mg tablet, extended release 12 hr (Mucinex) 1,200 mg PO BID PRN Cough 01/25/22 [History Last Taken Unknown] hydroxyzine pamoate 25 mg capsule (Vistaril) 25 - 75 mg PO BID PRN Itching 01/25/22 [History Last Taken Unknown] hyoscyamine sulfate 0.125 mg tablet (Levsin) 0.125 mg PO Q6H PRN IBS 01/25/22 [History Last Taken Unknown] ketorolac 10 mg tablet 10 mg PO Q6H PRN SEVERE HEADACHE 01/25/22 [History Last Taken Unknown] lidocaine 4 % topical cream 1 applic topical TID PRN Pain 01/25/22 [History Last Taken Unknown] lisinopril 20 mg tablet 10 mg PO BID 01/25/22 [History Last Taken Unknown] lorazepam 0.5 mg tablet (Ativan) 0.5 - 1 mg PO BID PRN Panic Attack(S) 01/25/22 [History Last Taken Unknown] naratriptan 2.5 mg tablet (Amerge) 2.5 mg PO Q4H PRN Headache 01/25/22 [History Last Taken Unknown] primidone 250 mg tablet 250 mg PO BID 01/25/22 [History Last Taken Unknown] tramadol 50 mg tablet 50 - 100 mg PO Q6H PRN Pain 01/25/22 [History Last Taken Unknown] trazodone 50 mg tablet 150 mg PO QHS 01/25/22 [History Last Taken Unknown] triamcinolone acetonide 0.1 % topical cream 1 applic topical TID PRN Rash 01/25/22 [History Last Taken Unknown] fluticasone 500 mcg-salmeterol 50 mcg/dose blistr powdr for inhalation 1 inh inhalation BID 05/02/22 [History Last Taken Unknown] insulin glargine 100 unit/mL (3 mL) subcutaneous pen (Lantus Solostar U-100 Insulin) 43 unit subcut QHS 05/02/22 [History Last Taken Unknown] omeprazole 40 mg capsule,delayed release 40 mg PO DAILY 05/02/22 [History Last Taken Unknown] oxybutynin chloride 10 mg tablet,extended release 24 hr 20 mg PO DAILY 05/02/22 [History Last Taken Unknown] paliperidone palmitate 117 mg/0.75 mL intramuscular syringe (Invega Sustenna) 117 mg IM [id number] 05/02/22 [History Last Taken Unknown] ergocalciferol (vitamin D2) 1,250 mcg (50,000 unit) capsule (Vitamin D2) 50,000 unit PO 2XW 08/10/22 [History Last Taken Unknown] insulin lispro 100 unit/mL subcutaneous pen See Rx Instructions subcut QAC 08/10/22 [History Last Taken Unknown] lactulose 10 gram/15 mL oral solution 30 ml PO BID PRN Constipation 08/10/22 [History Last Taken Unknown] pregabalin 150 mg capsule 150 mg PO TID 08/10/22 [History Last Taken Unknown] valacyclovir 500 mg tablet 500 mg PO DAILY 08/10/22 [History Last Taken Unknown] doxycycline monohydrate 100 mg tablet 100 mg PO BID 14 days #28 tabs 03/14/23 [Rx Last Taken Unknown] omadacycline 150 mg tablet (Nuzyra) See Rx Instructions PO .COMPLEX 14 days #30 tabs 04/28/23 [Rx Last Taken Unknown] ondansetron 4 mg disintegrating tablet 8 mg PO Q8H PRN PRN Nausea #20 tabs 05/08/23 [Rx Last Taken Unknown] Allergy/AdvReac Type Severity Reaction Status Date / Time vancomycin Allergy Severe BURNING Verified 05/08/23 08:16 RED RASH ON LEGGS amlodipine [From Norvasc] Allergy Swelling Verified 05/08/23 08:16 cefazolin sodium [From Ancef] Allergy Hives Verified 05/08/23 08:16 fexofenadine [From Nia] Allergy Shortness Verified 05/08/23 08:16 of breath nitrofurantoin Allergy Hives Verified 05/08/23 08:16 [From Macrobid] peanut Allergy Shortness Verified 05/08/23 08:16 of breath Penicillins Allergy Hives Verified 05/08/23 08:16 sumatriptan [From Imitrex] Allergy Shortness Verified 05/08/23 08:16 of breath adhesive AdvReac BURNING Verified 05/08/23 08:16 amitriptyline [From Elavil] AdvReac Other Verified 05/08/23 08:16 clindamycin AdvReac Diarrhea Verified 05/08/23 08:16 ziprasidone [From Geodon] AdvReac NEEDS Verified 05/08/23 08:16 FOLLOW-UP Family History Father CVA (cerebral vascular accident) Heart disease Mother Heart disease Surgical History H/O hernia repair History of arthroscopic knee surgery History of elbow surgery (~06/2020) History of left heart catheterization (07/16/20) Hx of section Hx of hysterectomy Kidney stone Social History household members: spouse Smoking Status: Never smoker alcohol intake: current alcohol intake frequency: holidays/special occasions only Alcohol type: wine substance use type: does not use caffeine: Yes (occasionally) ROS ROS ED Constitutional Constitutional ED: Reports fever(s); Denies chills Eyes Eyes: Denies change in vision or diplopia ENT ENT ED: Denies rhinorrhea or sore throat Cardiovascular Cardiovascular: Denies chest pain or palpitations Respiratory/Chest Respiratory/Chest: Reports cough and dyspnea Gastrointestinal Gastrointestinal: Reports abdominal pain, diarrhea, nausea and vomiting Genitourinary Genitourinary ED: Denies dysuria or hematuria Musculoskeletal Musculoskeletal: Denies back pain or neck pain Integumentary Reports wounds; Denies abscess or rash Neurologic Neurologic: Denies headache(s), paresthesias or weakness Psychiatric Psychiatric: Denies anxiety or suicidal thoughts EXAM Physical Exam Const Vital Signs: 05/08/23 08:14 05/08/23 08:27 Temperature 96.0 F L 96 F L Temperature Source Temporal Temporal Pulse Rate 64 64 Respiratory Rate 14 14 Blood Pressure 138/87 H 138/87 H Blood Pressure Mean 104 104 Pulse Ox 99 99 Oxygen Delivery Method Room Air Room Air Positive well nourished, well developed and obese General Appearance ED: well developed and NAD Nutritional Appearance: obese HEENT Reports moist mucous membranes HEENT Narrative: Normal speech no stridor moist oral mucous membranes normocephalic and atraumatic Eyes PERRL and EOMs intact bilaterally Neck full ROM and supple Chest Wall inspection of chest normal and palpation of chest normal Resp normal respiratory effort and clear to auscultation bilaterally Cardio regular rate, regular rhythm and no murmurs Rate: Negative for tachycardic GI non-distended GI Narrative: Mild tenderness supraumbilical, possible ventral hernia there but broad and without erythema, easily reducible as it is present only when she flexes her abdominal musculature. Auscultation: normoactive bowel sounds Palpation: soft Back/Spine no CVA tenderness General Back: other FROM Extremity Extremity Narrative: There is an ulcerative irregularly-shaped wound no more than 4 cm in diameter mid left perera without any surrounding erythema there is mild surrounding tenderness no discharge on the dressing, and a patch of a silver impregnated gauze pad within the ulcer. It is dry and clean. General Extremety ED: Yes edema and tenderness; Negative for pulses abnormal General Extremity: edema bilateral lower extremity Details: moderate (With changes consistent with chronic stasis dermatitis distally); Negative for pulses abnormal Neuro oriented x3, CN's II-XII intact bilaterally and no sensory deficits noted Sensorium / Orientation: awake and alert Motor Exam: strength 5/5 throughout Skin no rashes or lesions noted Skin Narrative: Left lower leg ulcerative wounds see above. No abscess, no expressible discharge, no bleeding, no surrounding cellulitis or lymphangitis. No other wounds. MDM MDM MDM Narrative Medical decision making narrative: This patient has normal vital signs, afebrile, 99% on room air without wearing her home oxygen, and she appears very well and has a very benign exam overall. The wound does not appear to be infected. When I asked her if it is looking better since she has been on the antibiotic for 1 week, she states no it pretty much looks the same. She states she is post to be on the antibiotic for another week, and when she called the nurse regarding all the symptoms she was advised to come to the emergency department. I reassured her, she certainly is not having a dangerous allergic reaction to this medication, it sounds like she is having a couple of the common side effects, and I did tell her that diarrhea is very nonspecific side effect when it comes to antibiotics and I recommend taking a probiotic to help counter this it certainly does not sound like she has C. difficile or meets any criteria for testing for that right now, but given that this antibiotic can cause pancreatitis and elevated LFTs, as well as an elevated BUN I did run test for that, I sent some blood cultures given that she was diagnosed with a wound infection and had a fever last night with no other obvious source, and performed a two-view chest x-ray which on my interpretation shows no acute pneumonia or changes compared with her old 1. Other than nonspecific elevation of her creatinine compared to baseline, the rest of her labs are unremarkable including her LFTs, BUN, and lipase which are within normal limits. Patient reassured, I see no medical reason to discontinue the antibiotic right now, I am prescribing her Zofran to use in addition as needed to prevent nausea associated with taking the medication she is comfortable with that plan I advised close outpatient follow-up with the prescribing practitioner. We discussed taking a probiotic for antibiotic associated diarrhea. History & Record Review Additional record(s) reviewed:: Prior labs Lab Data Attestation: I reviewed the patient's lab results. Labs: Laboratory Results - last 24 hr 05/08/23 05/08/23 05/08/23 08:56 08:56 08:56 WBC 5.2 RBC 4.63 Hgb 11.6 L Hct 37.6 MCV 81.2 MCH 25.1 L MCHC 30.9 L RDW Std Deviation 42.7 RDW Coeff of Jocy 14.7 H Plt Count 156 MPV 10.1 Immature Gran % (Auto) 0.600 Neut % (Auto) 68.0 Lymph % (Auto) 20.2 Brooke % (Auto) 11.2 H Eos % (Auto) 0.0 Baso % (Auto) 0.0 Absolute Neuts (auto) 3.5 Absolute Lymphs (auto) 1.05 Nucleated RBC % 0 Sodium 131 L Potassium 4.6 Chloride 98 Carbon Dioxide 26.0 Anion Gap 7 BUN 26 H Creatinine 1.61 H Estim Creat Clear Calc 33.85 Est GFR (MDRD) Af Amer 42 L Est GFR (MDRD) Non-Af 35 L BUN/Creatinine Ratio 16.1 Glucose 386 H Calcium 9.1 Total Bilirubin 0.50 Direct Bilirubin 0.22 AST 24 ALT 42 Alkaline Phosphatase 78 Total Protein 6.9 Albumin 3.0 L Globulin 3.9 Lipase 13 Radiography Diagnostic Testing: Clinical Impression(s) from Imaging Studies Chest X-Ray 05/08/23 09:10 IMPRESSION: Degenerative changes, as described above. No demonstrated acute cardiopulmonary process. Electronically Signed: Imtiaz Degroot MD at 10:17 EDT , Discharge Plan Triage Chief Complaint: General Illness ED Provider: Gurpreet Boone Dx/Rx/DC Orders Clinical Impression: Drug-induced nausea and vomiting, Open wound of left lower extremity, Antibiotic-associated diarrhea, COPD (chronic obstructive pulmonary disease) Instructions: ED Vomiting and Diarrhea ... Prescriptions: Continued omeprazole 40 mg capsule,delayed release(DR/EC) 40 mg PO DAILY oxybutynin chloride 10 mg tablet extended release 24hr 20 mg PO DAILY Invega Sustenna 117 mg/0.75 mL syringe 117 mg IM [id number] pregabalin 150 mg capsule 150 mg PO TID Label Comments: take 1 capsule by mouth three times a day valacyclovir 500 mg tablet 500 mg PO DAILY Label Comments: take 1 tablet by mouth once daily ergocalciferol (vitamin D2) [Vitamin D2] 1,250 mcg (50,000 unit) capsule 50,000 unit PO 2XW insulin lispro 100 unit/mL insulin pen See Rx Instructions subcut QAC Rx Instructions: 4 units + sliding scale subcutaneously before meals; bupropion HCl 300 MG tablet extended release 24 hr 450 mg PO DAILY Label Comments: DEPRESSION albuterol sulfate 1 INHALER inhaler 2 puff INHALATION Q4H PRN PRN (Reason: Sob &/Or Wheezing) dicyclomine 10 MG capsule 20 mg PO TIDAC Qty: 20 0RF fluticasone propionate 1 SPRAY spray,suspension 2 spray NASAL DAILY escitalopram oxalate 10 MG tablet 20 mg PO DAILY tizanidine 4 MG capsule 4 mg PO BID PRN (Reason: Muscle Spasm) aspirin 81 MG tablet,chewable 81 mg PO DAILY@0800 0RF Lantus Solostar U-100 Insulin 100 unit/mL (3 mL) insulin pen 43 unit SUBCUT QHS trazodone 50 mg Tablet 150 mg PO QHS cetirizine [Zyrtec] 10 mg Tablet 10 mg PO DAILY lidocaine 4 % Cream 1 applic TOPICAL TID PRN (Reason: Pain) tramadol 50 mg Tablet 50 - 100 mg PO Q6H PRN (Reason: Pain) triamcinolone acetonide 0.1 % Cream 1 applic TOPICAL TID PRN (Reason: Rash) ketorolac 10 mg Tablet 10 mg PO Q6H PRN (Reason: SEVERE HEADACHE) primidone 250 mg Tablet 250 mg PO BID lorazepam [Ativan] 0.5 mg Tablet 0.5 - 1 mg PO BID PRN (Reason: Panic Attack(S)) hyoscyamine sulfate [Levsin] 0.125 mg Tablet 0.125 mg PO Q6H PRN (Reason: IBS) buspirone 10 mg Tablet 20 mg PO TID colchicine 0.6 mg Tablet 0.6 mg PO DAILY naratriptan [Amerge] 2.5 mg Tablet 2.5 mg PO Q4H PRN (Reason: Headache) hydroxyzine pamoate [Vistaril] 25 mg Capsule 25 - 75 mg PO BID PRN (Reason: Itching) guaifenesin [Mucinex] 600 mg Tablet Extended Release 12hr 1,200 mg PO BID PRN (Reason: Cough) lisinopril 20 MG tablet 10 mg PO BID fluticasone propion-salmeterol 500-50 mcg/dose blister with device 1 inh INHALATION BID lactulose 10 gram/15 mL solution 30 ml PO BID PRN (Reason: Constipation) doxycycline monohydrate 100 mg tablet 100 mg PO BID 14 Days Qty: 28 0RF glimepiride 2 mg tablet 4 mg PO BID Label Comments: BLOOD SUGAR nadolol 80 mg tablet 80 mg PO BID Label Comments: BLOOD PRESSURE Nuzyra 150 mg tablet See Rx Instructions PO .COMPLEX 14 Days Qty: 30 0RF Rx Instructions: take 3 tablets (450 mg) by mouth once daily on days 1 and 2; take 2 tablets (300 mg) once daily at bedtime as directed PO Changed ondansetron 4 MG tablet 8 mg PO Q8H PRN PRN (Reason: Nausea) Qty: 20 0RF Discontinued fluconazole 150 mg Tablet 150 mg PO DAILY Primary Care Provider: Cristal Wolf Referrals: Cristal Wolf MD [Primary Care Provider] - 1 Week if not improving (And/or wound center) Disposition Disposition: Home, Self Care
[2023-05-08 09:06] LABS: Absolute Lymphocyte Count 1.05 X10^3/uL (0.83-4.51); Absolute Neutrophil Count 3.5 X10^3/uL (2.0-7.7); Hematocrit 37.6 % (37-47); Hemoglobin 11.6 g/dL (12.0-15.0); Lymphocyte # 1.05 X10^3/ul (0.83-4.51); Lymphocyte % 20.2 % (19-41); Mean Corp Hgb Conc 30.9 g/dL (32-36); Mean Corpuscular Hgb 25.1 pg (27.0-32.0); Mean Corpuscular Volume 81.2 fL (81-99); Mean Platelet Vol. 10.1 fl (6.2-12.0); Monocyte# 0.58 X10^3/uL; Monocyte% 11.2 % (0-10); NRBC Flagged by Analyzer 0 % (0-5); Neutrophil # 3.54 X10^3/uL (2.7-7.7); Platelet Count 156 K/mm3 (150-450); RBC Distribution Width CV 14.7 % (11.6-14.6); RBC Distribution Width SD 42.7 fl (35.1-43.9); Red Blood Count 4.63 M/mm3 (4.2-5.4); White Blood Count 5.2 K/mm3 (4.4-11.0)
--- NOTE | 2023-05-08 09:10 | RAD_ITS ---
STUDY: X-RAY CHEST REASON FOR EXAM: Female, 57 years old. cough, fever, copd TECHNIQUE: Single AP portable view of the chest. COMPARISON: Chest x-ray dated January 12, 2022 FINDINGS: Chronic elevation of the right hemidiaphragm. No visualized consolidation. The lungs are clear and expanded. There is no demonstrated pleural abnormality. Normal size heart. Normal mediastinum and keli. Normal visualized pulmonary arteries. There is atherosclerotic calcification of the aortic arch with tortuosity. There are diffuse degenerative changes of the visualized thoracic spine. Normal visualized ribs, clavicles, and shoulders. There is no demonstrated abnormality of the visualized soft tissue structures of the upper abdomen. RAD/Chest PA and Lateral IMPRESSION: Degenerative changes, as described above. No demonstrated acute cardiopulmonary process. Electronically Signed: Imtiaz Degroot MD at 10:17 EDT ,
[2023-05-08 09:18] LABS: Anion Gap 7 (5-15); BUN 26 mg/dL (7-18); BUN/Creat Ratio 16.1 RATIO (10-20); Calcium,Total 9.1 mg/dL (8.5-10.1); Chloride 98 mmol/L (98-107); Creatinine, Serum 1.61 mg/dL (0.55-1.02); EST Glomerular Filtration Rate 35 mL/min (>60); Est Glom Filt Rate - Afr Amer 42 mL/min (>60); Estimated Creatinine Clearance 33.85 ml/min; Glucose 386 mg/dL (74-106); Potassium 4.6 mmol/L (3.5-5.1); Sodium Level 131 mmol/L (136-145)
[2023-05-08 09:34] LABS: AST(SGOT) 24 U/L (15-37); Alanine Aminotransfer ALT/SGPT 42 U/L (13-56); Alkaline Phosphatase 78 U/L (45-117); Bilirubin, Direct 0.22 mg/dL (0.00-0.30); Globulin 3.9 g/dL (2.2-4.2); Lipase 13 U/L (13-75); Protein, Total 6.9 g/dL (6.4-8.2)
== END 2023-05-08 11:07 | disposition home or self-care (01) ==
PROVIDERS: Emergency Provider Emergency Medicine; PCP Internal Medicine; Visit Provider Emergency Medicine
DX: T36.4X5A Adverse effect of tetracyclines, initial encounter (principal); J44.9 Chronic obstructive pulmonary disease, unspecified; E11.9 Type 2 diabetes mellitus without complications; Z79.4 Long term (current) use of insulin; S81.802A Unspecified open wound, left lower leg, initial encounter; I10 Essential (primary) hypertension; R11.2 Nausea with vomiting, unspecified; F32.A Depression, unspecified; Z79.899 Other long term (current) drug therapy; Z79.82 Long term (current) use of aspirin; G43.909 Migraine, unspecified, not intractable, without status migrainosus; Z79.51 Long term (current) use of inhaled steroids; K21.9 Gastro-esophageal reflux disease without esophagitis; R19.7 Diarrhea, unspecified; Z90.710 Acquired absence of both cervix and uterus
CPT/HCPCS: 36415; 71046; 80048; 80076; 83690; 85025; 87040; 99282

== ENCOUNTER 2023-05-17 09:00 | Outpatient (RCR) | payer MEDICAID, SELFPAY ==
[2023-04-20 00:23] VITALS: BP 138/83; PULSE 79; RESP 20; TEMP 36.7; BMI 49.7
[2023-04-26 08:58] VITALS: BP 150/78; PULSE 75; TEMP 36.4; BMI 49.7
--- NOTE | 2023-04-26 12:17 | PN.PCM_ITS ---
History of Present Illness Date of Service: 04/26/23 Chief Complaint: Left anterior leg ulcers History of Wound: 57-year-old female who originally had a traumatic hematoma in 2012 to her left anterior leg and had an operative debridement and eventually had skin graft placement. She has been seen periodically at the wound center for chronic ulcers to her legs over the years. She has most recently been seeing Dr. Chang for her wound care. Her most significant issue at this time is her edema/lymphedema. When her edema becomes severe, she develops ulcers on her legs. She has a history of T2D, COPD, chronic venous insufficiency, cellulitis, chest pain, left ventricular aneurysm, HTN, Bipolar, ADHD, ABRAM, chronic pain syndrome, GERD. Wound culture from 03/08/23 positive for Staphylococcus aureus and she was started on Doxycycline. She currently denies fever, chills, nausea, vomiting. Progress of Wound: Left anterior leg ulcer is larger and is now a cluster this week. Her compression keeps rolling down and is adding extra compression to the area where the ulcer is located. Will have her place a double tubigrip for compression and top with an MARYCARMEN wrap. Will obtain a wound culture. Objective Data Objective Data Vital Signs: Vital Signs Temp Pulse Resp BP 97.5 F L 75 20 H 150/78 H 04/26/23 08:58 04/26/23 08:58 04/20/23 00:23 04/26/23 08:58 Weight: 299 lb Body Mass Index (BMI) 49.7 Charges/Coding Procedures Integumentary 111xxx-113xx: 45228 Joie subq tissue 20 sq cm/< Debridement Note Debridement Note Wound debrided: Anterior leg proximal ulcer cluster Laterality: Left Wound Grade/Stage: Stage II Type of Debridement: Excisional debridement Anesthesia Used: 4% Lidocaine Solution Depth: Down to and including healthy tissue and in the subcutaneous layer Percentage of wound debrided: 100 Instrument Used: 3mm curette Tissue Removed: Devitalized tissue and slough Severity: Limited To Skin Breakdown Amount of bleeding with debridement: Mild Bleeding Controlled with: Pressure and Compression and gauze Patient tolerated procedure: Patient tolerated procedure well Post-Debridement Measurements and Additional Note: Post-Debridement Measurements/Treatment NILO - Nurse 1 - General Ulcer Assessment Start: 04/26/23 08:56 Freq: Status: Active Protocol: PERRY Activity Type Activity Date Activity User E-sign Co-sign Detail Recorded Client Recorded Date Recorded By Document 04/26/23 08:58 DL [id number] 04/26/23 09:08 DL 04/26/23 08:58 WC - Today's Visit Information Type of service Follow-up Visit (Physician/MATERIAL LISTER ) Arrival Mode Ambulatory Transfer Assistance None Patient Identification Verified (Name & Yes ) Finger Stick Blood Sugar(mg/dl) (if 212 indicated): Blood Sugar Stated by Patient Height and Weight Body Mass Index (BMI) 49.7 BMI Classification Obese Vital Signs Temperature (97.8 F-99.1 F) 97.5 F L Temperature Source Temporal Pulse Rate (60-100) 75 Pulse Location Monitor Blood Pressure (90/60-120/80) 150/78 H Blood Pressure Mean (mm Hg) 102 Source Monitor History Since Last Visit- (Skip if this is Patient's initial visit) Have you changed medications since your No last visit? Any new allergies or adverse reactions No Had a fall/change in ADL's that may No increase risk of falls Signs or symptoms of abuse and/or No neglect since last visit Have you been in the hospital since your No last visit? Has dressing in place as prescribed Yes Has compression in place as prescribed Yes Has offloadiing in place as prescribed N/A Experienced any changes in pain level or No management Pain Scale: 0-10 Numeric Is Patient Pain Free? Yes - Nurse 1 - General Ulcer Measurement Start: 04/26/23 08:56 Freq: Status: Active Protocol: Activity Type Activity Date Activity User E-sign Co-sign Detail Recorded Client Recorded Date Recorded By Document 04/26/23 08:58 DL [id number] 04/26/23 09:08 DL 04/26/23 08:58 Wound Center Nurse 1 #9 L perera/adjacent -Current Size (cm) - Length 0.6 -Current Size (cm) - Width 0.6 -Current Size (cm) - Depth 0.2 -Total Square Cm 0.36 -Photo Taken Yes -Exudate Amt Small -Exudate Type Serosanguineous -Wound Margin Distinct, Outline Attached -Granulation Amt None Present (0 %) -Necrosis Amt Small (1-33%) -Necrotic Tissue Type Adherent Slough -Structure Exposed N/A -Texture (Verónica-wound Skin Appearance) Scarring -Moisture (Verónica-wound Skin Appearance) No Abnormality -Color (Verónica-wound Skin Appearance) Hemosiderin Staining -Temperature (Verónica-wound Skin No Abnormality Appearance) (Pt Warm) -Tenderness on Palpation (Verónica-wound No Skin Appearance) -Ulcer Cleansing Soap and Water -Foul Odor after Cleansing No -Anesthetic Used 5% Lidocaine Gel #7- L PERERA cluster -Current Size (cm) - Length 2 -Current Size (cm) - Width 1.3 -Current Size (cm) - Depth 0.4 -Total Square Cm 2.6 -Photo Taken Yes -Exudate Amt Medium -Exudate Type Yellow/Green -Wound Margin Distinct, Outline Attached -Granulation Amt Medium (34-66%) -Granulation Quality [place] -Necrosis Amt Medium (34-66%) -Necrotic Tissue Type Adherent Slough -Structure Exposed N/A -Texture (Verónica-wound Skin Appearance) Scarring -Moisture (Verónica-wound Skin Appearance) No Abnormality -Color (Verónica-wound Skin Appearance) Hemosiderin Staining -Temperature (Verónica-wound Skin No Abnormality Appearance) (Pt Warm) -Ulcer Cleansing Soap and Water -Foul Odor after Cleansing No -Anesthetic Used 5% Lidocaine Gel Left Calf (cm) 48.5 Left Ankle (cm) 22.5 WC - Nurse 2 - General Ulcer CM Notes Start: 04/26/23 08:56 Freq: Status: Active Protocol: Activity Type Activity Date Activity User E-sign Co-sign Detail Recorded Client Recorded Date Recorded By Document 04/26/23 09:25 [id number] 04/26/23 09:30 CARLOS 04/26/23 09:25 Wound Center Nurse 2 #9 L perera/adjacent -Time 09:25 -Correct Patient Yes -Correct Side, Site, Position Yes -Correct Procedure Yes -Procedure Performed Yes -Type of Procedure Debridement -Clinical Debridement Subcutaneous -Tissue Removed Subcutaneous -Tunneling No -Undermining/Tunneling No -Circular Undermining No -Wound/Ulcer Outcome Not Healed -Ulcer Cleansing Rinsed/ Irrigated with Saline -Foul Odor after Cleansing No -Bioengineered Tissue No #7- L PERERA cluster -Post Debridement (cm) - Length 3.0 -Post Debridement (cm) - Width 3.5 -Post Debridement (cm) - Depth 0.2 -Total Square (Post) (cm) 10.50 -Area of Debridement (cm) - Length 3.0 -Area of Debridement (cm) - Width 3.5 -Total Square (Area) (cm) 10.50 -Tunneling No -Undermining/Tunneling No -Circular Undermining No -Wound/Ulcer Outcome Not Healed -Ulcer Cleansing Rinsed/ Irrigated with Saline -Foul Odor after Cleansing No -Bioengineered Tissue No -Bleeding Controlled with Pressure -Treatment Response Procedure Tolerated Well -Offloading No -Debridement - Subq, 1st 20sq cm Yes Pain Scale: 0-10 Numeric Is Patient Pain Free? Yes - Nurse 3 - General Ulcer D/C NN Start: 04/26/23 08:56 Freq: Status: Active Protocol: Activity Type Activity Date Activity User E-sign Co-sign Detail Recorded Client Recorded Date Recorded By Document 04/26/23 09:42 AZAR [id number] 04/26/23 09:44 RB 04/26/23 09:42 Wound Care Center Nurse 3 #7- L PERERA cluster -Ulcer Cleansing Rinsed/ Irrigated with Saline -Primary Dressing Applied Aquacel AG 4x4 -Primary Dressing Covered/Secured with Dry Gauze & Roll Gauze, Secured with Tape -Aquacel AG 4x4 1 Left -Other tubigrip double layer/ marycarmen to knee Pain Scale: 0-10 Numeric Is Patient Pain Free? Yes - Visit Discharge Discharge Condition Stable Ambulatory Status Ambulatory Transportation Private Auto Medication Reconcilliation completed & No provided to patient/care provider Clinical Summary of Care Provided Yes Assessment/Plan Assessment/Plan (1) Chronic ulcer of left leg with fat layer exposed: CODE(S): L97.922 - Non-pressure chronic ulcer of unspecified part of left lower leg with fat layer exposed (2) Edema of both lower extremities: CODE(S): R60.0 - Localized edema (3) Venous insufficiency (chronic) (peripheral): CODE(S): I87.2 - Venous insufficiency (chronic) (peripheral) (4) Diabetes mellitus type 2, uncontrolled, with complications: CODE(S): E11.8 - Type 2 diabetes mellitus with unspecified complications; E11.65 - Type 2 diabetes mellitus with hyperglycemia PLAN: Plan Patient was evaluated at the wound healing center today. Wound care will be moistened Aquacel-Ag covered with gauze dressing every other day when home health is able to assist. Compression - Double tubigrip topped with MARYCARMEN wrap. A wound culture was obtained today, 04/26/23 of the left anterior leg ulcer cluster.? A positive culture will necessitate antibiotic therapy. Ordered Circaid stocking for compression. Her insurance will not cover them. She is not physically able to get 30-40 mmHg compression stockings on her self. She has purchased compression stockings with 8-15 mmHg. Will have her wear them both on her left leg so she is getting 15-30 mmHg. Instructed her how to place them. She states they are too short and she would like to get a new pair of stockings but cannot afford them at this time. Discussed with her that if she does not consistently wear compression, she will continue to have edema issue which can lead to skin breakdown. She verbalizes understanding. Encouraged diet low in carbohydrates and high in protein. She has T2D and is unsure what her last hgA1C was. [facility] states she has no labs. Unable to find one done at [facility]. Venous study from 02/10/22 showed Left small saphenous vein was patent and incompetent. The rest of the study was normal. Arterial study from 02/10/22 showed Right MARILU 1.06 and Left MARILU 1.07. Waveforms were Triphasic bilaterally. No signs of arterial disease. Wound culture from 03/08/23 positive for MSSA. She was started on Doxycycline due to her PCN allergy. Follow up one week.
--- NOTE | 2023-04-28 12:22 | WC ---
Spoke to patient regarding her positive wound culture that show high resistant organisms requiring her to start a brand new ATB that she is working on getting approved [facility]. Explained to patient to keep a look out on her phone to take any neccesary phone calls regarding this matter. Patient verbalized understanding.
[2023-05-03 10:15] VITALS: BP 102/63; PULSE 63; TEMP 36.1; BMI 49.7
--- NOTE | 2023-05-03 12:33 | PCM.WC.PN ---
History of Present Illness Date of Service: 05/03/23 Chief Complaint: Left anterior leg ulcers History of Wound: 57-year-old female who originally had a traumatic hematoma in 2011 to her left anterior leg and had an operative debridement and eventually had skin graft placement. She has been seen periodically at the wound center for chronic ulcers to her legs over the years. She has most recently been seeing Dr. Chang for her wound care. Her most significant issue at this time is her edema/lymphedema. When her edema becomes severe, she develops ulcers on her legs. She has a history of T2D, COPD, chronic venous insufficiency, cellulitis, chest pain, left ventricular aneurysm, HTN, Bipolar, ADHD, ABRAM, chronic pain syndrome, GERD. Wound culture from 03/08/23 positive for Staphylococcus aureus and she was started on Doxycycline. Wound culture obtained 04/26/23 which was positive for Staphylococcus aureus that was resistant to Doxycycline and Bactrim, she is allergic to PCN and cephalosporins and she is on several medications that interact with Linezolid, therefore insurance approval was obtained to start her on a new medication Nuzyra which she started 05/02/23. She currently denies fever, chills. Progress of Wound: Left anterior leg ulcer is larger and slightly deeper this week. She just started the Nuzyra last night and is feeling nauseated from it. She states that she has Zofran if she needs to take it. She was instructed that once she completes the loading dose, the nausea should improve. Objective Data Objective Data Vital Signs: Vital Signs Temp Pulse Resp BP 96.9 F L 63 20 H 102/63 05/03/23 10:15 05/03/23 10:15 04/20/23 00:23 05/03/23 10:15 Weight: 299 lb Body Mass Index (BMI) 49.7 Lab / Micro Data Micro: Microbiology 04/26/23 09:20 Wound Abcess - Leg, Left Gram Stain - Final 04/26/23 09:20 Wound Abcess - Leg, Left Wound Culture - Final Staphylococcus aureus 04/26/23 09:20 Wound Abcess - Leg, Left Anaerobic Culture - Final No anaerobic bacteria isolated. Charges/Coding Procedures Integumentary 111xxx-113xx: 41997 Joie subq tissue 20 sq cm/< Debridement Note Debridement Note Wound debrided: Anterior leg proximal ulcer cluster Laterality: Left Wound Grade/Stage: Stage II Type of Debridement: Excisional debridement Anesthesia Used: 4% Lidocaine Solution Depth: Down to and including healthy tissue and in the subcutaneous layer Percentage of wound debrided: 100 Instrument Used: 5mm curette Tissue Removed: Devitalized tissue and slough Severity: Limited To Skin Breakdown Amount of bleeding with debridement: Mild Bleeding Controlled with: Pressure and Compression and gauze Patient tolerated procedure: Patient tolerated procedure well Post-Debridement Measurements and Additional Note: Post-Debridement Measurements/Treatment - Nurse 1 - General Ulcer Assessment Start: 04/26/23 08:56 Freq: Status: Active Protocol: NIL[employer]Z Activity Type Activity Date Activity User E-sign Co-sign Detail Recorded Client Recorded Date Recorded By Document 04/26/23 08:58 DL [id number] 04/26/23 09:08 DL Document 05/03/23 10:15 AK [id number] 05/03/23 10:19 AK 04/26/23 05/03/23 08:58 10:15 - Today's Visit Information Type of service Follow-up Visit Follow-up Visit (Physician/CITY CARRIER ASSISTANT (Physician/CITY CARRIER ASSISTANT ) ) Arrival Mode Ambulatory Ambulatory Transfer Assistance None Patient Identification Verified (Name & Yes Yes ) Patient Requires Transmission-Based No Precautions Safety Precautions NA Finger Stick Blood Sugar(mg/dl) (if 212 indicated): Blood Sugar Stated by Patient Height and Weight Body Mass Index (BMI) 49.7 49.7 BMI Classification Obese Obese Vital Signs Temperature (97.8 F-99.1 F) 97.5 F L 96.9 F L Temperature Source Temporal Temporal Pulse Rate (60-100) 75 63 Pulse Location Monitor Monitor Blood Pressure (90/60-120/80) 150/78 H 102/63 Blood Pressure Mean (mm Hg) 102 76 Source Monitor Monitor History Since Last Visit- (Skip if this is Patient's initial visit) Have you changed medications since your No No last visit? Any new allergies or adverse reactions No No Had a fall/change in ADL's that may No No increase risk of falls Signs or symptoms of abuse and/or No No neglect since last visit Have you been in the hospital since your No No last visit? Has dressing in place as prescribed Yes Yes Has compression in place as prescribed Yes No Has offloadiing in place as prescribed N/A No Experienced any changes in pain level or No No management Left Footwear Regular Shoe Right Footwear Regular Shoe Pain Scale: 0-10 Numeric Is Patient Pain Free? Yes Yes WC - Nurse 1 - General Ulcer Measurement Start: 04/26/23 08:56 Freq: Status: Active Protocol: Activity Type Activity Date Activity User E-sign Co-sign Detail Recorded Client Recorded Date Recorded By Document 04/26/23 08:58 DL [id number] 04/26/23 09:08 DL Document 05/03/23 10:15 AK [id number] 05/03/23 10:19 AK 04/26/23 05/03/23 08:58 10:15 Wound Center Nurse 1 #9 L perera/adjacent -Current Size (cm) - Length 0.6 -Current Size (cm) - Width 0.6 -Current Size (cm) - Depth 0.2 -Total Square Cm 0.36 -Photo Taken Yes -Exudate Amt Small -Exudate Type Serosanguineous -Wound Margin Distinct, Outline Attached -Granulation Amt None Present (0 %) -Necrosis Amt Small (1-33%) -Necrotic Tissue Type Adherent Slough -Structure Exposed N/A -Texture (Verónica-wound Skin Appearance) Scarring -Moisture (Verónica-wound Skin Appearance) No Abnormality -Color (Verónica-wound Skin Appearance) Hemosiderin Staining -Temperature (Verónica-wound Skin No Abnormality Appearance) (Pt Warm) -Tenderness on Palpation (Verónica-wound No Skin Appearance) -Ulcer Cleansing Soap and Water -Foul Odor after Cleansing No -Anesthetic Used 5% Lidocaine Gel #7- L PERERA cluster -Current Size (cm) - Length 2 -Current Size (cm) - Width 1.3 -Current Size (cm) - Depth 0.4 -Total Square Cm 2.6 -Photo Taken Yes -Exudate Amt Medium Medium -Exudate Type Yellow/Green Serosanguineous -Wound Margin Distinct, Distinct, Outline Outline Attached Attached -Granulation Amt Medium (34-66%) Small (1-33%) -Granulation Quality [place] Red -Slough/Fibrin Yes -Necrosis Amt Medium (34-66%) Large (67-100%) -Necrotic Tissue Type Adherent Slough Adherent Slough -Structure Exposed N/A N/A -Texture (Verónica-wound Skin Appearance) Scarring No Abnormality, Assessed -Moisture (Verónica-wound Skin Appearance) No Abnormality Assessed, Weeping -Color (Verónica-wound Skin Appearance) Hemosiderin No Abnormality, Staining Assessed -Temperature (Verónica-wound Skin No Abnormality No Abnormality Appearance) (Pt Warm) (Pt Warm) -Tenderness on Palpation (Verónica-wound No Skin Appearance) -Ulcer Cleansing Soap and Water Rinsed/ Irrigated with Saline -Foul Odor after Cleansing No No -Anesthetic Used 5% Lidocaine 5% Lidocaine Gel Gel Left Calf (cm) 48.5 Left Ankle (cm) 22.5 WC - Nurse 2 - General Ulcer CM Notes Start: 04/26/23 08:56 Freq: Status: Active Protocol: Activity Type Activity Date Activity User E-sign Co-sign Detail Recorded Client Recorded Date Recorded By Document 04/26/23 09:25 [id number] 04/26/23 09:30 Document 05/03/23 09:31 [id number] 05/03/23 09:34 04/26/23 05/03/23 09:25 09:31 Wound Center Nurse 2 #9 L perera/adjacent -Time 09:25 -Correct Patient Yes -Correct Side, Site, Position Yes -Correct Procedure Yes -Procedure Performed Yes -Type of Procedure Debridement -Clinical Debridement Subcutaneous -Tissue Removed Subcutaneous -Tunneling No -Undermining/Tunneling No -Circular Undermining No -Wound/Ulcer Outcome Not Healed -Ulcer Cleansing Rinsed/ Irrigated with Saline -Foul Odor after Cleansing No -Bioengineered Tissue No #7- L PERERA cluster -Time 09:32 -Correct Patient Yes -Correct Side, Site, Position Yes -Correct Procedure Yes -Procedure Performed Yes -Type of Procedure Debridement -Clinical Debridement Subcutaneous -Tissue Removed Subcutaneous -Post Debridement (cm) - Length 3.0 3.5 -Post Debridement (cm) - Width 3.5 4.2 -Post Debridement (cm) - Depth 0.2 0.2 -Total Square (Post) (cm) 10.50 14.70 -Area of Debridement (cm) - Length 3.0 3.5 -Area of Debridement (cm) - Width 3.5 4.2 -Total Square (Area) (cm) 10.50 14.70 -Tunneling No No -Undermining/Tunneling No -Circular Undermining No No -Wound/Ulcer Outcome Not Healed Not Healed -Ulcer Cleansing Rinsed/ Rinsed/ Irrigated with Irrigated with Saline Saline -Foul Odor after Cleansing No No -Bioengineered Tissue No No -Bleeding Controlled with Pressure Pressure -Treatment Response Procedure Procedure Tolerated Well Tolerated Well -Offloading No No -Debridement - Subq, 1st 20sq cm Yes Yes Pain Scale: 0-10 Numeric Is Patient Pain Free? Yes Yes WC - Nurse 3 - General Ulcer D/C NN Start: 04/26/23 08:56 Freq: Status: Active Protocol: Activity Type Activity Date Activity User E-sign Co-sign Detail Recorded Client Recorded Date Recorded By Document 04/26/23 09:42 RB [id number] 04/26/23 09:44 RB Document 05/03/23 10:15 AK [id number] 05/03/23 10:19 AK 04/26/23 05/03/23 09:42 10:15 Wound Care Center Nurse 3 #7- L PERERA cluster -Ulcer Cleansing Rinsed/ Rinsed/ Irrigated with Irrigated with Saline Saline -Foul Odor after Cleansing No -Negative Pressure Wound Therapy N/A -Primary Dressing Applied Aquacel AG 4x4 Aquacel AG 2x2 -Primary Dressing Covered/Secured with Dry Gauze & Roll Gauze, Secured with Tape -Aquacel AG 2x2 1 -Aquacel AG 4x4 1 Left -Lotion applied to leg before No compression wrap -Compression Wrap Silvestre Wrap -Tubular Bandage Double Layer -Size of Tubigrip Used Size E -Size E ($) 2 -Other tubigrip double layer/ silvestre to knee Vital Signs Temperature (97.8 F-99.1 F) 96.9 F L Temperature Source Temporal Pulse Rate (60-100) 63 Pulse Location Monitor Blood Pressure (90/60-120/80) 102/63 Blood Pressure Mean (mm Hg) 76 Source Monitor Pain Scale: 0-10 Numeric Is Patient Pain Free? Yes Yes WC - Visit Discharge Discharge Condition Stable Stable Ambulatory Status Ambulatory Ambulatory Transportation Private Auto Private Auto Medication Reconcilliation completed & No Yes provided to patient/care provider Clinical Summary of Care Provided Yes Yes Assessment/Plan Assessment/Plan (1) Chronic ulcer of left leg with fat layer exposed: CODE(S): L97.922 - Non-pressure chronic ulcer of unspecified part of left lower leg with fat layer exposed (2) Edema of both lower extremities: CODE(S): R60.0 - Localized edema (3) Venous insufficiency (chronic) (peripheral): CODE(S): I87.2 - Venous insufficiency (chronic) (peripheral) (4) Diabetes mellitus type 2, uncontrolled, with complications: CODE(S): E11.8 - Type 2 diabetes mellitus with unspecified complications; E11.65 - Type 2 diabetes mellitus with hyperglycemia PLAN: Plan Patient was evaluated at the wound healing center today. Wound care will be moistened Aquacel-Ag covered with gauze dressing every other day when home health is able to assist. Compression - Double tubigrip. Ordered Circaid stocking for compression. Her insurance will not cover them. She is not physically able to get 30-40 mmHg compression stockings on her self. She has purchased compression stockings with 8-15 mmHg. Will have her wear them both on her left leg so she is getting 15-30 mmHg. Instructed her how to place them. She states they are too short and she would like to get a new pair of stockings but cannot afford them at this time. Discussed with her that if she does not consistently wear compression, she will continue to have edema issue which can lead to skin breakdown. She verbalizes understanding. Instructed her that she may take her compression off at bedtime when she is in her bed and then place it back on first thing in the morning. Encouraged diet low in carbohydrates and high in protein. Venous study from 02/10/22 showed Left small saphenous vein was patent and incompetent. The rest of the study was normal. Arterial study from 02/10/22 showed Right MARILU 1.06 and Left MARILU 1.07. Waveforms were Triphasic bilaterally. No signs of arterial disease. Wound culture from 03/08/23 positive for MSSA. She was started on Doxycycline due to her PCN allergy. Wound culture obtained 04/26/23 which was positive for Staphylococcus aureus that was resistant to Doxycycline and Bactrim, she is allergic to PCN and cephalosporins and she is on several medications that interact with Linezolid, therefore insurance approval was obtained to start her on a new medication Nuzyra which she started 05/02/23. Follow up one week.
[2023-05-10 09:00] VITALS: BP 149/90; PULSE 80; TEMP 36.2; BMI 49.7
--- NOTE | 2023-05-10 09:33 | PN.PCM_ITS ---
History of Present Illness Date of Service: 05/10/23 Chief Complaint: Left anterior leg ulcers History of Wound: 57-year-old female who originally had a traumatic hematoma in 2012 to her left anterior leg and had an operative debridement and eventually had skin graft placement. She has been seen periodically at the wound center for chronic ulcers to her legs over the years. She has most recently been seeing Dr. Chang for her wound care. Her most significant issue at this time is her edema/lymphedema. When her edema becomes severe, she develops ulcers on her legs. She has a history of T2D, COPD, chronic venous insufficiency, cellulitis, chest pain, left ventricular aneurysm, HTN, Bipolar, ADHD, ABRAM, chronic pain syndrome, GERD. Wound culture from 03/08/23 positive for Staphylococcus aureus and she was started on Doxycycline. Wound culture obtained 04/26/23 which was positive for Staphylococcus aureus that was resistant to Doxycycline and Bactrim, she is allergic to PCN and cephalosporins and she is on several medications that interact with Linezolid, therefore insurance approval was obtained to start her on a new medication Nuzyra which she started 05/02/23. She currently denies fever, chills. Progress of Wound: Left anterior leg ulcer is larger this week and she has a new ulcer on her left medial leg where her compression stockings keep rolling down. She is having difficulty taking Nuzyra because it has caused her nausea and vomiting since starting it. She states that she her zofran does not help the nausea but she is determined to complete the antibiotic course. Objective Data Objective Data Vital Signs: Vital Signs Temp Pulse Resp BP 97.2 F L 80 20 H 149/90 H 05/10/23 09:00 05/10/23 09:00 04/20/23 00:23 05/10/23 09:00 Weight: 299 lb Body Mass Index (BMI) 49.7 Lab / Micro Data Micro: Microbiology 04/26/23 09:20 Wound Abcess - Leg, Left Gram Stain - Final 04/26/23 09:20 Wound Abcess - Leg, Left Wound Culture - Final Staphylococcus aureus 04/26/23 09:20 Wound Abcess - Leg, Left Anaerobic Culture - Final No anaerobic bacteria isolated. Charges/Coding Procedures Integumentary [id number]: 20392 Joie subq tissue 20 sq cm/< Debridement Note Debridement Note Wound debrided: Anterior leg proximal ulcer cluster Laterality: Left Wound Grade/Stage: Stage II Type of Debridement: Excisional debridement Anesthesia Used: 4% Lidocaine Solution Depth: Down to and including healthy tissue and in the subcutaneous layer Percentage of wound debrided: 100 Instrument Used: 5mm curette Tissue Removed: Devitalized tissue and slough Severity: Limited To Skin Breakdown Amount of bleeding with debridement: Mild Bleeding Controlled with: Pressure and Compression and gauze Patient tolerated procedure: Patient tolerated procedure well Post-Debridement Measurements and Additional Note: Post-Debridement Measurements/Treatment - Nurse 1 - General Ulcer Assessment Start: 04/26/23 08:56 Freq: Status: Active Protocol: PERRY Activity Type Activity Date Activity User E-sign Co-sign Detail Recorded Client Recorded Date Recorded By Document 04/26/23 08:58 DL [id number] 04/26/23 09:08 DL Document 05/03/23 10:15 AK [id number] 05/03/23 10:19 AK Document 05/10/23 09:00 AK [id number] 05/10/23 09:13 AK 04/26/23 05/03/23 05/10/23 08:58 10:15 09:00 - Today's Visit Information Type of service Follow-up Visit Follow-up Visit Follow-up Visit (Physician/PIT FURNACE OPERATOR (Physician/PIT FURNACE OPERATOR (Physician/PIT FURNACE OPERATOR ) ) ) Arrival Mode Ambulatory Ambulatory Ambulatory Transfer Assistance None Patient Identification Verified (Name & Yes Yes Yes ) Patient Requires Transmission-Based No No Precautions Safety Precautions NA Finger Stick Blood Sugar(mg/dl) (if 212 270 indicated): Blood Sugar Stated by Stated by Patient Patient Height and Weight Body Mass Index (BMI) 49.7 49.7 49.7 BMI Classification Obese Obese Obese Vital Signs Temperature (97.8 F-99.1 F) 97.5 F L 96.9 F L 97.2 F L Temperature Source Temporal Temporal Temporal Pulse Rate (60-100) 75 63 80 Pulse Location Monitor Monitor Monitor Blood Pressure (90/60-120/80) 150/78 H 102/63 149/90 H Blood Pressure Mean (mm Hg) 102 76 109 Source Monitor Monitor Monitor History Since Last Visit- (Skip if this is Patient's initial visit) Have you changed medications since your No No No last visit? Any new allergies or adverse reactions No No No Had a fall/change in ADL's that may No No No increase risk of falls Signs or symptoms of abuse and/or No No No neglect since last visit Have you been in the hospital since your No No No last visit? Has dressing in place as prescribed Yes Yes Yes Has compression in place as prescribed Yes No N/A Has offloadiing in place as prescribed N/A No N/A Experienced any changes in pain level or No No No management Left Footwear Regular Shoe Regular Shoe Right Footwear Regular Shoe Regular Shoe Pain Scale: 0-10 Numeric Is Patient Pain Free? Yes Yes Yes WC - Nurse 1 - General Ulcer Measurement Start: 04/26/23 08:56 Freq: Status: Active Protocol: Activity Type Activity Date Activity User E-sign Co-sign Detail Recorded Client Recorded Date Recorded By Document 04/26/23 08:58 DL [id number] 04/26/23 09:08 DL Document 05/03/23 10:15 AK [id number] 05/03/23 10:19 AK Document 05/10/23 09:00 AK [id number] 05/10/23 09:13 AK 04/26/23 05/03/23 05/10/23 08:58 10:15 09:00 Wound Center Nurse 1 #9 L perera/adjacent -Current Size (cm) - Length 0.6 -Current Size (cm) - Width 0.6 -Current Size (cm) - Depth 0.2 -Total Square Cm 0.36 -Photo Taken Yes -Exudate Amt Small -Exudate Type Serosanguineous -Wound Margin Distinct, Outline Attached -Granulation Amt None Present (0 %) -Necrosis Amt Small (1-33%) -Necrotic Tissue Type Adherent Slough -Structure Exposed N/A -Texture (Verónica-wound Skin Appearance) Scarring -Moisture (Verónica-wound Skin Appearance) No Abnormality -Color (Verónica-wound Skin Appearance) Hemosiderin Staining -Temperature (Verónica-wound Skin No Abnormality Appearance) (Pt Warm) -Tenderness on Palpation (Verónica-wound No Skin Appearance) -Ulcer Cleansing Soap and Water -Foul Odor after Cleansing No -Anesthetic Used 5% Lidocaine Gel #10 lateral LE -Combined with other wound No -Current Size (cm) - Length 0.5 -Current Size (cm) - Width 3 -Current Size (cm) - Depth 0.1 -Total Square Cm 1.5 -Date of Last Picture (Recall this 05/10/23 field) -Photo Taken Yes -Tunneling No -Undermining/Tunneling No -Circular Undermining No -Change in Wound Grade/Stage No -Exudate Amt Medium -Exudate Type Serosanguineous -Wound Margin Distinct, Outline Attached -Granulation Amt None Present (0 %) -Granulation Quality N/A -Slough/Fibrin Yes -Necrosis Amt None Present (0 %) -Structure Exposed N/A -Texture (Verónica-wound Skin Appearance) No Abnormality, Assessed -Moisture (Verónica-wound Skin Appearance) No Abnormality, Assessed -Color (Verónica-wound Skin Appearance) No Abnormality, Assessed -Temperature (Verónica-wound Skin No Abnormality Appearance) (Pt Warm) -Tenderness on Palpation (Verónica-wound No Skin Appearance) -Ulcer Cleansing Rinsed/ Irrigated with Saline -Foul Odor after Cleansing No -Anesthetic Used 5% Lidocaine Gel -Wound Comment(s) scabbed #7- L PERERA cluster -Combined with other wound No -Current Size (cm) - Length 2 2.5 -Current Size (cm) - Width 1.3 3.6 -Current Size (cm) - Depth 0.4 0.3 -Total Square Cm 2.6 9.00 -Date of Last Picture (Recall this 05/10/23 field) -Photo Taken Yes Yes -Tunneling No -Undermining/Tunneling No -Circular Undermining No -Change in Wound Grade/Stage No -Exudate Amt Medium Medium Medium -Exudate Type Yellow/Green Serosanguineous Serosanguineous -Wound Margin Distinct, Distinct, Distinct, Outline Outline Outline Attached Attached Attached -Granulation Amt Medium (34-66%) Small (1-33%) Small (1-33%) -Granulation Quality [place] -Slough/Fibrin Yes Yes -Necrosis Amt Medium (34-66%) Large (67-100%) Large (67-100%) -Necrotic Tissue Type Adherent Slough Adherent Slough Adherent Slough -Structure Exposed N/A N/A N/A -Texture (Verónica-wound Skin Appearance) Scarring No Abnormality, Assessed, Assessed Scarring -Moisture (Verónica-wound Skin Appearance) No Abnormality Assessed, No Abnormality, Weeping Assessed -Color (Verónica-wound Skin Appearance) Hemosiderin No Abnormality, No Abnormality, Staining Assessed Assessed, Erythema -Temperature (Verónica-wound Skin No Abnormality No Abnormality No Abnormality Appearance) (Pt Warm) (Pt Warm) (Pt Warm) -Tenderness on Palpation (Verónica-wound No No Skin Appearance) -Ulcer Cleansing Soap and Water Rinsed/ Rinsed/ Irrigated with Irrigated with Saline Saline -Foul Odor after Cleansing No No No -Anesthetic Used 5% Lidocaine 5% Lidocaine 5% Lidocaine Gel Gel Gel Left Calf (cm) 48.5 Left Ankle (cm) 22.5 WC - Nurse 2 - General Ulcer CM Notes Start: 04/26/23 08:56 Freq: Status: Active Protocol: Activity Type Activity Date Activity User E-sign Co-sign Detail Recorded Client Recorded Date Recorded By Document 04/26/23 09:25 [id number] 04/26/23 09:30 Document 05/03/23 09:31 [id number] 05/03/23 09:34 04/26/23 05/03/23 09:25 09:31 Wound Center Nurse 2 #9 L perera/adjacent -Time 09:25 -Correct Patient Yes -Correct Side, Site, Position Yes -Correct Procedure Yes -Procedure Performed Yes -Type of Procedure Debridement -Clinical Debridement Subcutaneous -Tissue Removed Subcutaneous -Tunneling No -Undermining/Tunneling No -Circular Undermining No -Wound/Ulcer Outcome Not Healed -Ulcer Cleansing Rinsed/ Irrigated with Saline -Foul Odor after Cleansing No -Bioengineered Tissue No #7- L PERERA cluster -Time 09:32 -Correct Patient Yes -Correct Side, Site, Position Yes -Correct Procedure Yes -Procedure Performed Yes -Type of Procedure Debridement -Clinical Debridement Subcutaneous -Tissue Removed Subcutaneous -Post Debridement (cm) - Length 3.0 3.5 -Post Debridement (cm) - Width 3.5 4.2 -Post Debridement (cm) - Depth 0.2 0.2 -Total Square (Post) (cm) 10.50 14.70 -Area of Debridement (cm) - Length 3.0 3.5 -Area of Debridement (cm) - Width 3.5 4.2 -Total Square (Area) (cm) 10.50 14.70 -Tunneling No No -Undermining/Tunneling No -Circular Undermining No No -Wound/Ulcer Outcome Not Healed Not Healed -Ulcer Cleansing Rinsed/ Rinsed/ Irrigated with Irrigated with Saline Saline -Foul Odor after Cleansing No No -Bioengineered Tissue No No -Bleeding Controlled with Pressure Pressure -Treatment Response Procedure Procedure Tolerated Well Tolerated Well -Offloading No No -Debridement - Subq, 1st 20sq cm Yes Yes Pain Scale: 0-10 Numeric Is Patient Pain Free? Yes Yes - Nurse 3 - General Ulcer D/C NN Start: 04/26/23 08:56 Freq: Status: Active Protocol: Activity Type Activity Date Activity User E-sign Co-sign Detail Recorded Client Recorded Date Recorded By Document 04/26/23 09:42 RB [id number] 04/26/23 09:44 RB Document 05/03/23 10:15 AK [id number] 05/03/23 10:19 AK 04/26/23 05/03/23 09:42 10:15 Wound Care Center Nurse 3 #7- L PERERA cluster -Ulcer Cleansing Rinsed/ Rinsed/ Irrigated with Irrigated with Saline Saline -Foul Odor after Cleansing No -Negative Pressure Wound Therapy N/A -Primary Dressing Applied Aquacel AG 4x4 Aquacel AG 2x2 -Primary Dressing Covered/Secured with Dry Gauze & Roll Gauze, Secured with Tape -Aquacel AG 2x2 1 -Aquacel AG 4x4 1 Left -Lotion applied to leg before No compression wrap -Compression Wrap Silvestre Wrap -Tubular Bandage Double Layer -Size of Tubigrip Used Size E -Size E ($) 2 -Other tubigrip double layer/ silvestre to knee Vital Signs Temperature (97.8 F-99.1 F) 96.9 F L Temperature Source Temporal Pulse Rate (60-100) 63 Pulse Location Monitor Blood Pressure (90/60-120/80) 102/63 Blood Pressure Mean (mm Hg) 76 Source Monitor Pain Scale: 0-10 Numeric Is Patient Pain Free? Yes Yes WC - Visit Discharge Discharge Condition Stable Stable Ambulatory Status Ambulatory Ambulatory Transportation Private Auto Private Auto Medication Reconcilliation completed & No Yes provided to patient/care provider Clinical Summary of Care Provided Yes Yes Additional Wound Wound debrided: medial ulcer cluster Laterality: Left Type of Debridement: Excisional debridement Anesthesia Used: 5% Lidocaine Gel Depth: Down to and including healthy tissue and in the subcutaneous layer Percentage of wound debrided: 100 Instrument Used: 3mm curette Tissue Removed: Devitalized tissue and slough Severity: Fat Layer Exposed Amount of bleeding with debridement: Mild Bleeding Controlled with: Compression and gauze Patient tolerated procedure: Patient tolerated procedure well Assessment/Plan Assessment/Plan (1) Chronic ulcer of left leg with fat layer exposed: CODE(S): L97.922 - Non-pressure chronic ulcer of unspecified part of left lower leg with fat layer exposed (2) Edema of both lower extremities: CODE(S): R60.0 - Localized edema (3) Venous insufficiency (chronic) (peripheral): CODE(S): I87.2 - Venous insufficiency (chronic) (peripheral) (4) Diabetes mellitus type 2, uncontrolled, with complications: CODE(S): E11.8 - Type 2 diabetes mellitus with unspecified complications; E11.65 - Type 2 diabetes mellitus with hyperglycemia (5) Nausea & vomiting: CODE(S): R11.2 - Nausea with vomiting, unspecified PLAN: Plan Patient was evaluated at the wound healing center today. Wound care will be moistened Aquacel-Ag covered with gauze dressing every other day when home health is able to assist. Compression - Double tubigrip. Make sure to place over knee to prevent it from rolling down. Top with SILVESTRE wrap to help keep the tubigrip in place. Ordered Circaid stocking for compression. Her insurance will not cover them. She is not physically able to get 30-40 mmHg compression stockings on her self. She has purchased compression stockings with 8-15 mmHg. Will have her wear them both on her left leg so she is getting 15-30 mmHg. Instructed her how to place them. She states they are too short and she would like to get a new pair of stockings but cannot afford them at this time. Discussed with her that if she does not consistently wear compression, she will continue to have edema issue which can lead to skin breakdown. She verbalizes understanding. Instructed her that she may take her compression off at bedtime when she is in her bed and then place it back on first thing in the morning. Encouraged diet low in carbohydrates and high in protein. Venous study from 02/10/22 showed Left small saphenous vein was patent and incompetent. The rest of the study was normal. Arterial study from 02/10/22 showed Right MARILU 1.06 and Left MARILU 1.07. Waveforms were Triphasic bilaterally. No signs of arterial disease. Wound culture from 4/19/23 positive for MSSA. She was started on Doxycycline due to her PCN allergy. Wound culture obtained 04/26/23 which was positive for Staphylococcus aureus that was resistant to Doxycycline and Bactrim, she is allergic to PCN and cephalosporins and she is on several medications that interact with Linezolid, therefore insurance approval was obtained to start her on a new medication Nuzyra which she started 05/02/23. Prescribed Phenergan for nausea. Instructed her not to take the Zofran at the same time as she takes the phenergan. Follow up one week.
[2023-05-17 09:22] VITALS: BP 135/71; PULSE 86; RESP 20; TEMP 36.6; BMI 49.7
--- NOTE | 2023-05-17 15:03 | PCM.WC.PN ---
History of Present Illness Date of Service: 05/17/23 Chief Complaint: Left anterior leg ulcers History of Wound: 57-year-old female who originally had a traumatic hematoma in 2011 to her left anterior leg and had an operative debridement and eventually had skin graft placement. She has been seen periodically at the wound center for chronic ulcers to her legs over the years. She has most recently been seeing Dr. Chang for her wound care. Her most significant issue at this time is her edema/lymphedema. When her edema becomes severe, she develops ulcers on her legs. She has a history of T2D, COPD, chronic venous insufficiency, cellulitis, chest pain, left ventricular aneurysm, HTN, Bipolar, ADHD, ABRAM, chronic pain syndrome, GERD. Wound culture from 03/08/23 positive for Staphylococcus aureus and she was started on Doxycycline. Wound culture obtained 04/26/23 which was positive for Staphylococcus aureus that was resistant to Doxycycline and Bactrim, she is allergic to PCN and cephalosporins and she is on several medications that interact with Linezolid, therefore insurance approval was obtained to start her on a new medication Nuzyra which she started 05/02/23. She currently denies fever, chills. Progress of Wound: Left anterior leg ulcer and left medial leg ulcer are stable this week. She has not been able to keep the tubigrip compression above her knees but they are not rolling down to were her ulcers are located. Objective Data Objective Data Vital Signs: Vital Signs Temp Pulse Resp BP 98 F 86 20 H 135/71 H 05/17/23 09:22 05/17/23 09:22 05/17/23 09:22 05/17/23 09:22 Weight: 299 lb Body Mass Index (BMI) 49.7 Lab / Micro Data Micro: Microbiology 04/26/23 09:20 Wound Abcess - Leg, Left Gram Stain - Final 04/26/23 09:20 Wound Abcess - Leg, Left Wound Culture - Final Staphylococcus aureus 04/26/23 09:20 Wound Abcess - Leg, Left Anaerobic Culture - Final No anaerobic bacteria isolated. Charges/Coding Procedures Integumentary [id number]: [id number] Joie subq tissue 20 sq cm/< Debridement Note Debridement Note Wound debrided: Anterior leg proximal ulcer cluster Laterality: Left Wound Grade/Stage: Stage II Type of Debridement: Excisional debridement Anesthesia Used: 4% Lidocaine Solution Depth: Down to and including healthy tissue and in the subcutaneous layer Percentage of wound debrided: 100 Instrument Used: 5mm curette Tissue Removed: Devitalized tissue and slough Severity: Limited To Skin Breakdown Amount of bleeding with debridement: Mild Bleeding Controlled with: Pressure and Compression and gauze Patient tolerated procedure: Patient tolerated procedure well Post-Debridement Measurements and Additional Note: Post-Debridement Measurements/Treatment - Nurse 1 - General Ulcer Assessment Start: 04/26/23 08:56 Freq: Status: Active Protocol: PERRY Activity Type Activity Date Activity User E-sign Co-sign Detail Recorded Client Recorded Date Recorded By Document 04/26/23 08:58 DL [id number] 04/26/23 09:08 DL Document 05/03/23 10:15 AK [id number] 05/03/23 10:19 AK Document 05/10/23 09:00 AK [id number] 05/10/23 09:13 AK Document 05/17/23 09:22 DL [id number] 05/17/23 09:29 DL 04/26/23 05/03/23 05/10/23 08:58 10:15 09:00 - Today's Visit Information Type of service Follow-up Visit Follow-up Visit Follow-up Visit (Physician/[employer] (Physician/[employer] (Physician/[employer] ) ) ) Arrival Mode Ambulatory Ambulatory Ambulatory Transfer Assistance None Patient Identification Verified (Name & Yes Yes Yes ) Patient Requires Transmission-Based No No Precautions Safety Precautions NA Finger Stick Blood Sugar(mg/dl) (if 212 270 indicated): Blood Sugar Stated by Stated by Patient Patient Height and Weight Body Mass Index (BMI) 49.7 49.7 49.7 BMI Classification Obese Obese Obese Vital Signs Temperature (97.8 F-99.1 F) 97.5 F L 96.9 F L 97.2 F L Temperature Source Temporal Temporal Temporal Pulse Rate (60-100) 75 63 80 Pulse Location Monitor Monitor Monitor Respiratory Rate (12-18) Respiratory rate source Blood Pressure (90/60-120/80) 150/78 H 102/63 149/90 H Blood Pressure Mean (mm Hg) 102 76 109 Source Monitor Monitor Monitor History Since Last Visit- (Skip if this is Patient's initial visit) Have you changed medications since your No No No last visit? Any new allergies or adverse reactions No No No Had a fall/change in ADL's that may No No No increase risk of falls Signs or symptoms of abuse and/or No No No neglect since last visit Have you been in the hospital since your No No No last visit? Has dressing in place as prescribed Yes Yes Yes Has compression in place as prescribed Yes No N/A Has offloadiing in place as prescribed N/A No N/A Experienced any changes in pain level or No No No management Left Footwear Regular Shoe Regular Shoe Right Footwear Regular Shoe Regular Shoe Pain Scale: 0-10 Numeric Is Patient Pain Free? Yes Yes Yes 05/17/23 09:22 - Today's Visit Information Type of service Follow-up Visit (Physician/[employer] ) Arrival Mode Ambulatory Transfer Assistance None Patient Identification Verified (Name & Yes ) Patient Requires Transmission-Based No Precautions Safety Precautions Finger Stick Blood Sugar(mg/dl) (if 223 indicated): Blood Sugar Stated by Patient Height and Weight Body Mass Index (BMI) 49.7 BMI Classification Obese Vital Signs Temperature (97.8 F-99.1 F) 98 F Temperature Source Temporal Pulse Rate (60-100) 86 Pulse Location Monitor Respiratory Rate (12-18) 20 H Respiratory rate source Observation Blood Pressure (90/60-120/80) 135/71 H Blood Pressure Mean (mm Hg) 92 Source Monitor History Since Last Visit- (Skip if this is Patient's initial visit) Have you changed medications since your No last visit? Any new allergies or adverse reactions No Had a fall/change in ADL's that may No increase risk of falls Signs or symptoms of abuse and/or No neglect since last visit Have you been in the hospital since your No last visit? Has dressing in place as prescribed Yes Has compression in place as prescribed Yes Has offloadiing in place as prescribed N/A Experienced any changes in pain level or No management Left Footwear Right Footwear Pain Scale: 0-10 Numeric Is Patient Pain Free? Yes - Nurse 1 - General Ulcer Measurement Start: 04/26/23 08:56 Freq: Status: Active Protocol: Activity Type Activity Date Activity User E-sign Co-sign Detail Recorded Client Recorded Date Recorded By Document 04/26/23 08:58 DL [id number] 04/26/23 09:08 DL Document 05/03/23 10:15 AK [id number] 05/03/23 10:19 AK Document 05/10/23 09:00 AK [id number] 05/10/23 09:13 AK Document 05/17/23 09:22 DL [id number] 05/17/23 09:29 DL 04/26/23 05/03/23 05/10/23 08:58 10:15 09:00 Wound Center Nurse 1 #9 L perera/adjacent -Current Size (cm) - Length 0.6 -Current Size (cm) - Width 0.6 -Current Size (cm) - Depth 0.2 -Total Square Cm 0.36 -Photo Taken Yes -Exudate Amt Small -Exudate Type Serosanguineous -Wound Margin Distinct, Outline Attached -Granulation Amt None Present (0 %) -Necrosis Amt Small (1-33%) -Necrotic Tissue Type Adherent Slough -Structure Exposed N/A -Texture (Verónica-wound Skin Appearance) Scarring -Moisture (Verónica-wound Skin Appearance) No Abnormality -Color (Verónica-wound Skin Appearance) Hemosiderin Staining -Temperature (Verónica-wound Skin No Abnormality Appearance) (Pt Warm) -Tenderness on Palpation (Verónica-wound No Skin Appearance) -Ulcer Cleansing Soap and Water -Foul Odor after Cleansing No -Anesthetic Used 5% Lidocaine Gel #10 Med LE cluster -Combined with other wound No -Current Size (cm) - Length 0.5 -Current Size (cm) - Width 3 -Current Size (cm) - Depth 0.1 -Total Square Cm 1.5 -Date of Last Picture (Recall this 05/10/23 field) -Photo Taken Yes -Tunneling No -Undermining/Tunneling No -Circular Undermining No -Change in Wound Grade/Stage No -Exudate Amt Medium -Exudate Type Serosanguineous -Wound Margin Distinct, Outline Attached -Granulation Amt None Present (0 %) -Granulation Quality N/A -Slough/Fibrin Yes -Necrosis Amt None Present (0 %) -Necrotic Tissue Type -Structure Exposed N/A -Texture (Verónica-wound Skin Appearance) No Abnormality, Assessed -Moisture (Verónica-wound Skin Appearance) No Abnormality, Assessed -Color (Verónica-wound Skin Appearance) No Abnormality, Assessed -Temperature (Verónica-wound Skin No Abnormality Appearance) (Pt Warm) -Tenderness on Palpation (Verónica-wound No Skin Appearance) -Ulcer Cleansing Rinsed/ Irrigated with Saline -Foul Odor after Cleansing No -Anesthetic Used 5% Lidocaine Gel -Wound Comment(s) scabbed #7- L PERERA -Combined with other wound No -Current Size (cm) - Length 2 2.5 -Current Size (cm) - Width 1.3 3.6 -Current Size (cm) - Depth 0.4 0.3 -Total Square Cm 2.6 9.00 -Date of Last Picture (Recall this 05/10/23 field) -Photo Taken Yes Yes -Tunneling No -Undermining/Tunneling No -Circular Undermining No -Change in Wound Grade/Stage No -Exudate Amt Medium Medium Medium -Exudate Type Yellow/Green Serosanguineous Serosanguineous -Wound Margin Distinct, Distinct, Distinct, Outline Outline Outline Attached Attached Attached -Granulation Amt Medium (34-66%) Small (1-33%) Small (1-33%) -Granulation Quality [place] -Slough/Fibrin Yes Yes -Necrosis Amt Medium (34-66%) Large (67-100%) Large (67-100%) -Necrotic Tissue Type Adherent Slough Adherent Slough Adherent Slough -Structure Exposed N/A N/A N/A -Texture (Verónica-wound Skin Appearance) Scarring No Abnormality, Assessed, Assessed Scarring -Moisture (Verónica-wound Skin Appearance) No Abnormality Assessed, No Abnormality, Weeping Assessed -Color (Verónica-wound Skin Appearance) Hemosiderin No Abnormality, No Abnormality, Staining Assessed Assessed, Erythema -Temperature (Verónica-wound Skin No Abnormality No Abnormality No Abnormality Appearance) (Pt Warm) (Pt Warm) (Pt Warm) -Tenderness on Palpation (Verónica-wound No No Skin Appearance) -Ulcer Cleansing Soap and Water Rinsed/ Rinsed/ Irrigated with Irrigated with Saline Saline -Foul Odor after Cleansing No No No -Anesthetic Used 5% Lidocaine 5% Lidocaine 5% Lidocaine Gel Gel Gel Left Calf (cm) 48.5 Left Ankle (cm) 22.5 05/17/23 09:22 Wound Center Nurse 1 #9 L perera/adjacent -Current Size (cm) - Length -Current Size (cm) - Width -Current Size (cm) - Depth -Total Square Cm -Photo Taken -Exudate Amt -Exudate Type -Wound Margin -Granulation Amt -Necrosis Amt -Necrotic Tissue Type -Structure Exposed -Texture (Verónica-wound Skin Appearance) -Moisture (Verónica-wound Skin Appearance) -Color (Verónica-wound Skin Appearance) -Temperature (Verónica-wound Skin Appearance) -Tenderness on Palpation (Verónica-wound Skin Appearance) -Ulcer Cleansing -Foul Odor after Cleansing -Anesthetic Used #10 Med LE cluster -Combined with other wound -Current Size (cm) - Length 5 -Current Size (cm) - Width 2 -Current Size (cm) - Depth 0.2 -Total Square Cm 10 -Date of Last Picture (Recall this field) -Photo Taken -Tunneling -Undermining/Tunneling -Circular Undermining -Change in Wound Grade/Stage -Exudate Amt Medium -Exudate Type Serosanguineous -Wound Margin Distinct, Outline Attached -Granulation Amt Medium (34-66%) -Granulation Quality Red -Slough/Fibrin -Necrosis Amt Medium (34-66%) -Necrotic Tissue Type Adherent Slough -Structure Exposed N/A -Texture (Verónica-wound Skin Appearance) Scarring -Moisture (Verónica-wound Skin Appearance) No Abnormality -Color (Verónica-wound Skin Appearance) Hemosiderin Staining -Temperature (Verónica-wound Skin No Abnormality Appearance) (Pt Warm) -Tenderness on Palpation (Verónica-wound No Skin Appearance) -Ulcer Cleansing Soap and Water -Foul Odor after Cleansing No -Anesthetic Used 5% Lidocaine Gel -Wound Comment(s) #7- L PERERA -Combined with other wound -Current Size (cm) - Length 3 -Current Size (cm) - Width 3 -Current Size (cm) - Depth 0.3 -Total Square Cm 9 -Date of Last Picture (Recall this field) -Photo Taken -Tunneling -Undermining/Tunneling -Circular Undermining -Change in Wound Grade/Stage -Exudate Amt Medium -Exudate Type Serosanguineous -Wound Margin Distinct, Outline Attached -Granulation Amt Medium (34-66%) -Granulation Quality Red -Slough/Fibrin -Necrosis Amt Large (67-100%) -Necrotic Tissue Type Adherent Slough -Structure Exposed N/A -Texture (Verónica-wound Skin Appearance) Scarring -Moisture (Verónica-wound Skin Appearance) Dry/Scaly -Color (Verónica-wound Skin Appearance) Hemosiderin Staining -Temperature (Verónica-wound Skin No Abnormality Appearance) (Pt Warm) -Tenderness on Palpation (Verónica-wound No Skin Appearance) -Ulcer Cleansing Soap and Water -Foul Odor after Cleansing No -Anesthetic Used 5% Lidocaine Gel Left Calf (cm) 44.5 Left Ankle (cm) 22 WC - Nurse 2 - General Ulcer CM Notes Start: 04/26/23 08:56 Freq: Status: Active Protocol: Activity Type Activity Date Activity User E-sign Co-sign Detail Recorded Client Recorded Date Recorded By Document 04/26/23 09:25 [id number] 04/26/23 09:30 Document 05/03/23 09:31 [id number] 05/03/23 09:34 JF Document 05/10/23 14:15 PL [id number] 05/10/23 14:17 PL Document 05/17/23 09:48 [id number] 05/17/23 09:53 JF 04/26/23 05/03/23 05/10/23 09:25 09:31 14:15 Wound Center Nurse 2 #9 L perera/adjacent -Time 09:25 -Correct Patient Yes -Correct Side, Site, Position Yes -Correct Procedure Yes -Procedure Performed Yes -Type of Procedure Debridement -Clinical Debridement Subcutaneous -Tissue Removed Subcutaneous -Tunneling No -Undermining/Tunneling No -Circular Undermining No -Wound/Ulcer Outcome Not Healed -Ulcer Cleansing Rinsed/ Irrigated with Saline -Foul Odor after Cleansing No -Bioengineered Tissue No #10 Med LE cluster -Time 09:18 -Correct Patient Yes -Correct Side, Site, Position Yes -Correct Procedure Yes -Procedure Performed Yes -Type of Procedure Debridement -Clinical Debridement Subcutaneous -Tissue Removed Subcutaneous -Post Debridement (cm) - Length 3.0 -Post Debridement (cm) - Width 3.8 -Post Debridement (cm) - Depth 0.2 -Total Square (Post) (cm) 11.40 -Area of Debridement (cm) - Length 3.0 -Area of Debridement (cm) - Width 3.8 -Total Square (Area) (cm) 11.40 -Tunneling No -Undermining/Tunneling No -Circular Undermining No -Wound/Ulcer Outcome Not Healed -Ulcer Cleansing Rinsed/ Irrigated with Saline -Foul Odor after Cleansing No -Bioengineered Tissue No -Bleeding Controlled with Pressure -Treatment Response Procedure Tolerated Well -Offloading -Debridement - Subq, 1st 20sq cm Yes #7- L PERERA -Time 09:32 09:18 -Correct Patient Yes Yes -Correct Side, Site, Position Yes Yes -Correct Procedure Yes Yes -Procedure Performed Yes Yes -Type of Procedure Debridement Debridement -Clinical Debridement Subcutaneous Subcutaneous -Tissue Removed Subcutaneous Subcutaneous -Post Debridement (cm) - Length 3.0 3.5 0.8 -Post Debridement (cm) - Width 3.5 4.2 2.5 -Post Debridement (cm) - Depth 0.2 0.2 0.2 -Total Square (Post) (cm) 10.50 14.70 2.00 -Area of Debridement (cm) - Length 3.0 3.5 0.8 -Area of Debridement (cm) - Width 3.5 4.2 2.5 -Total Square (Area) (cm) 10.50 14.70 2.00 -Tunneling No No No -Undermining/Tunneling No No -Circular Undermining No No No -Wound/Ulcer Outcome Not Healed Not Healed Not Healed -Ulcer Cleansing Rinsed/ Rinsed/ Rinsed/ Irrigated with Irrigated with Irrigated with Saline Saline Saline -Foul Odor after Cleansing No No No -Bioengineered Tissue No No No -Bleeding Controlled with Pressure Pressure Pressure -Treatment Response Procedure Procedure Procedure Tolerated Well Tolerated Well Tolerated Well -Offloading No No -Debridement - Subq, 1st 20sq cm Yes Yes No Pain Scale: 0-10 Numeric Is Patient Pain Free? Yes Yes Yes 05/17/23 09:48 Wound Center Nurse 2 #9 L perera/adjacent -Time -Correct Patient -Correct Side, Site, Position -Correct Procedure -Procedure Performed -Type of Procedure -Clinical Debridement -Tissue Removed -Tunneling -Undermining/Tunneling -Circular Undermining -Wound/Ulcer Outcome -Ulcer Cleansing -Foul Odor after Cleansing -Bioengineered Tissue #10 Med LE cluster -Time 09:50 -Correct Patient Yes -Correct Side, Site, Position Yes -Correct Procedure Yes -Procedure Performed Yes -Type of Procedure Debridement -Clinical Debridement Subcutaneous -Tissue Removed Subcutaneous -Post Debridement (cm) - Length 0.7 -Post Debridement (cm) - Width 2.2 -Post Debridement (cm) - Depth 0.2 -Total Square (Post) (cm) 1.54 -Area of Debridement (cm) - Length 0.7 -Area of Debridement (cm) - Width 2.2 -Total Square (Area) (cm) 1.54 -Tunneling No -Undermining/Tunneling No -Circular Undermining No -Wound/Ulcer Outcome Not Healed -Ulcer Cleansing Rinsed/ Irrigated with Saline -Foul Odor after Cleansing No -Bioengineered Tissue No -Bleeding Controlled with Pressure -Treatment Response Procedure Tolerated Well -Offloading No -Debridement - Subq, 1st 20sq cm No #7- L PERERA -Time 09:51 -Correct Patient Yes -Correct Side, Site, Position Yes -Correct Procedure Yes -Procedure Performed Yes -Type of Procedure Debridement -Clinical Debridement Subcutaneous -Tissue Removed Subcutaneous -Post Debridement (cm) - Length 3.1 -Post Debridement (cm) - Width 3.3 -Post Debridement (cm) - Depth 0.2 -Total Square (Post) (cm) 10.23 -Area of Debridement (cm) - Length 3.1 -Area of Debridement (cm) - Width 3.3 -Total Square (Area) (cm) 10.23 -Tunneling No -Undermining/Tunneling No -Circular Undermining No -Wound/Ulcer Outcome Not Healed -Ulcer Cleansing Rinsed/ Irrigated with Saline -Foul Odor after Cleansing No -Bioengineered Tissue No -Bleeding Controlled with Pressure -Treatment Response Procedure Tolerated Well -Offloading No -Debridement - Subq, 1st 20sq cm Yes Pain Scale: 0-10 Numeric Is Patient Pain Free? Yes WC - Nurse 3 - General Ulcer D/C NN Start: 04/26/23 08:56 Freq: Status: Active Protocol: Activity Type Activity Date Activity User E-sign Co-sign Detail Recorded Client Recorded Date Recorded By Document 04/26/23 09:42 RB [id number] 04/26/23 09:44 RB Document 05/03/23 10:15 AK [id number] 05/03/23 10:19 AK Document 05/10/23 09:37 AK [id number] 05/10/23 09:38 AK Document 05/17/23 10:01 RB [id number] 05/17/23 10:03 RB 04/26/23 05/03/23 05/10/23 09:42 10:15 09:37 Wound Care Center Nurse 3 #10 Med LE cluster -Ulcer Cleansing Rinsed/ Irrigated with Saline -Foul Odor after Cleansing No -Primary Dressing Applied Aquacel AG 4x4 -Primary Dressing Covered/Secured with Dry Gauze & Roll Gauze, Secured with Tape -Aquacel AG 2x2 -Aquacel AG 4x4 1 #7- L PERERA -Ulcer Cleansing Rinsed/ Rinsed/ Rinsed/ Irrigated with Irrigated with Irrigated with Saline Saline Saline -Foul Odor after Cleansing No No -Negative Pressure Wound Therapy N/A -Primary Dressing Applied Aquacel AG 4x4 Aquacel AG 2x2 -Other Dressing aqaucel ag -Primary Dressing Covered/Secured with Dry Gauze & Dry Gauze & Roll Gauze, Roll Gauze, Secured with Secured with Tape Tape -Aquacel AG 2x2 1 -Aquacel AG 4x4 1 Left -Lotion applied to leg before No compression wrap -Compression Wrap Silvestre Wrap -Tubular Bandage Double Layer Double Layer -Size of Tubigrip Used Size E Size F -Size E ($) 2 -Size F ($) 2 -Other tubigrip double layer/ silvestre to knee Treatment Response Procedure Tolerated Well Vital Signs Temperature (97.8 F-99.1 F) 96.9 F L Temperature Source Temporal Pulse Rate (60-100) 63 Pulse Location Monitor Blood Pressure (90/60-120/80) 102/63 Blood Pressure Mean (mm Hg) 76 Source Monitor Pain Scale: 0-10 Numeric Is Patient Pain Free? Yes Yes Yes WC - Visit Discharge Discharge Condition Stable Stable Stable Ambulatory Status Ambulatory Ambulatory Ambulatory Transportation Private Auto Private Auto Private Auto Medication Reconcilliation completed & No Yes provided to patient/care provider Clinical Summary of Care Provided Yes Yes Facility Type Home Health Orders Sent Yes 05/17/23 10:01 Wound Care Center Nurse 3 #10 Med LE cluster -Ulcer Cleansing Rinsed/ Irrigated with Saline -Foul Odor after Cleansing -Primary Dressing Applied Aquacel AG 2x2 -Primary Dressing Covered/Secured with Dry Gauze,Dry Gauze & Roll Gauze,Secured with Tape -Aquacel AG 2x2 1 -Aquacel AG 4x4 #7- L PERERA -Ulcer Cleansing Rinsed/ Irrigated with Saline -Foul Odor after Cleansing -Negative Pressure Wound Therapy -Primary Dressing Applied -Other Dressing aquacel ag -Primary Dressing Covered/Secured with Dry Gauze & Roll Gauze, Secured with Tape -Aquacel AG 2x2 -Aquacel AG 4x4 Left -Lotion applied to leg before compression wrap -Compression Wrap -Tubular Bandage -Size of Tubigrip Used -Size E ($) -Size F ($) -Other double layer tubigrip then silvestre wrap Treatment Response Procedure Tolerated Well Vital Signs Temperature (97.8 F-99.1 F) Temperature Source Pulse Rate (60-100) Pulse Location Blood Pressure (90/60-120/80) Blood Pressure Mean (mm Hg) Source Pain Scale: 0-10 Numeric Is Patient Pain Free? Yes WC - Visit Discharge Discharge Condition Stable Ambulatory Status Ambulatory Transportation Private Auto Medication Reconcilliation completed & No provided to patient/care provider Clinical Summary of Care Provided Yes Facility Type Orders Sent Additional Wound Wound debrided: medial ulcer cluster Laterality: Left Type of Debridement: Excisional debridement Anesthesia Used: 5% Lidocaine Gel Depth: Down to and including healthy tissue and in the subcutaneous layer Percentage of wound debrided: 100 Instrument Used: 3mm curette Tissue Removed: Devitalized tissue and slough Severity: Fat Layer Exposed Amount of bleeding with debridement: Mild Bleeding Controlled with: Compression and gauze Patient tolerated procedure: Patient tolerated procedure well Assessment/Plan Assessment/Plan (1) Chronic ulcer of left leg with fat layer exposed: CODE(S): L97.922 - Non-pressure chronic ulcer of unspecified part of left lower leg with fat layer exposed (2) Edema of both lower extremities: CODE(S): R60.0 - Localized edema (3) Venous insufficiency (chronic) (peripheral): CODE(S): I87.2 - Venous insufficiency (chronic) (peripheral) (4) Diabetes mellitus type 2, uncontrolled, with complications: CODE(S): E11.8 - Type 2 diabetes mellitus with unspecified complications; E11.65 - Type 2 diabetes mellitus with hyperglycemia (5) Nausea & vomiting: CODE(S): R11.2 - Nausea with vomiting, unspecified PLAN: Plan Patient was evaluated at the wound healing center today. Wound care will be moistened Aquacel-Ag covered with gauze dressing every other day when home health is able to assist. Compression - Double tubigrip. Make sure to place over knee to prevent it from rolling down. Top with SILVESTRE wrap to help keep the tubigrip in place. Ordered Circaid stocking for compression. Her insurance will not cover them. She is not physically able to get 30-40 mmHg compression stockings on her self. She has purchased compression stockings with 8-15 mmHg. Will have her wear them both on her left leg so she is getting 15-30 mmHg. Instructed her how to place them. She states they are too short and she would like to get a new pair of stockings but cannot afford them at this time. Discussed with her that if she does not consistently wear compression, she will continue to have edema issue which can lead to skin breakdown. She verbalizes understanding. Instructed her that she may take her compression off at bedtime when she is in her bed and then place it back on first thing in the morning. Encouraged diet low in carbohydrates and high in protein. Venous study from 02/10/22 showed Left small saphenous vein was patent and incompetent. The rest of the study was normal. Arterial study from 02/10/22 showed Right MARILU 1.06 and Left MARILU 1.07. Waveforms were Triphasic bilaterally. No signs of arterial disease. Wound culture from 03/08/23 positive for MSSA. She was started on Doxycycline due to her PCN allergy. Wound culture obtained 04/26/23 which was positive for Staphylococcus aureus that was resistant to Doxycycline and Bactrim, she is allergic to PCN and cephalosporins and she is on several medications that interact with Linezolid, therefore insurance approval was obtained to start her on a new medication Nuzyra which she has completed. Follow up one week.
== END 2023-05-19 23:59 | disposition home or self-care (01) ==
LOC: WC 09:00
PROVIDERS: PCP Internal Medicine; Visit Provider Nurse Practitioner Family
DX: L97.922 Non-pressure chronic ulcer of unspecified part of left lower leg with fat layer exposed (principal); J44.9 Chronic obstructive pulmonary disease, unspecified; E11.65 Type 2 diabetes mellitus with hyperglycemia; R11.2 Nausea with vomiting, unspecified; I87.2 Venous insufficiency (chronic) (peripheral); I89.0 Lymphedema, not elsewhere classified; R60.0 Localized edema; I10 Essential (primary) hypertension
CPT/HCPCS: 11042; 87070; 87075; 87077; 87186; 87205

== ENCOUNTER 2023-06-14 09:00 | Outpatient (RCR) | payer MEDICAID, SELFPAY ==
[2023-05-20 00:54] VITALS: BP 135/71; PULSE 86; RESP 20; TEMP 36.6; BMI 49.7
[2023-05-24 09:14] VITALS: BP 133/82; PULSE 75; RESP 16; TEMP 35.8; BMI 49.7
--- NOTE | 2023-05-24 10:19 | PCM.WC.PN ---
History of Present Illness Date of Service: 05/24/23 Chief Complaint: Left anterior leg ulcers History of Wound: 57-year-old female who originally had a traumatic hematoma in 2012 to her left anterior leg and had an operative debridement and eventually had skin graft placement. She has been seen periodically at the wound center for chronic ulcers to her legs over the years. She has most recently been seeing Dr. Chang for her wound care. Her most significant issue at this time is her edema/lymphedema. When her edema becomes severe, she develops ulcers on her legs. She has a history of T2D, COPD, chronic venous insufficiency, cellulitis, chest pain, left ventricular aneurysm, HTN, Bipolar, ADHD, ABRAM, chronic pain syndrome, GERD. Wound culture from 03/08/23 positive for Staphylococcus aureus and she was started on Doxycycline. Wound culture obtained 04/26/23 which was positive for Staphylococcus aureus that was resistant to Doxycycline and Bactrim, she is allergic to PCN and cephalosporins and she is on several medications that interact with Linezolid, therefore insurance approval was obtained to start her on a new medication Nuzyra which she started 05/02/23. She currently denies fever, chills. Progress of Wound: Left anterior leg ulcer and left medial leg ulcer are smaller in size this week. She has not been able to keep the tubigrip compression above her knees but they are not rolling down to were her ulcers are located with the SILVESTRE wrap in place. Objective Data Objective Data Vital Signs: Vital Signs Temp Pulse Resp BP O2 Del Method 96.5 F L 75 16 133/82 H Room Air 05/24/23 09:14 05/24/23 09:14 05/24/23 09:14 05/24/23 09:14 05/24/23 09:14 Oxygen Delivery Method Room Air Weight: 299 lb Body Mass Index (BMI) 49.7 Charges/Coding Procedures Integumentary 111xxx-113xx: [id number] Joie subq tissue 20 sq cm/< Debridement Note Debridement Note Wound debrided: Anterior leg proximal ulcer cluster Laterality: Left Wound Grade/Stage: Stage II Type of Debridement: Excisional debridement Anesthesia Used: 4% Lidocaine Solution Depth: Down to and including healthy tissue and in the subcutaneous layer Percentage of wound debrided: 100 Instrument Used: 5mm curette Tissue Removed: Devitalized tissue and slough Severity: Limited To Skin Breakdown Amount of bleeding with debridement: Mild Bleeding Controlled with: Pressure and Compression and gauze Patient tolerated procedure: Patient tolerated procedure well Post-Debridement Measurements and Additional Note: Post-Debridement Measurements/Treatment - Nurse 1 - General Ulcer Assessment Start: 05/24/23 09:14 Freq: Status: Active Protocol: PERRY Activity Type Activity Date Activity User E-sign Co-sign Detail Recorded Client Recorded Date Recorded By Document 05/24/23 09:14 [id number] 05/24/23 09:27 05/24/23 09:14 WC - Today's Visit Information Type of service Follow-up Visit (Physician/ANIMAL CARE PROVIDER ) Arrival Mode Ambulatory Patient Identification Verified (Name & Yes ) Safety Precautions NA Height and Weight Body Mass Index (BMI) 49.7 BMI Classification Obese Vital Signs Temperature (97.8 F-99.1 F) 96.5 F L Temperature Source Temporal Pulse Rate (60-100) 75 Pulse Location Monitor Respiratory Rate (12-18) 16 Respiratory rate source Observation Oxygen Delivery Method Room Air Blood Pressure (90/60-120/80) 133/82 H Blood Pressure Mean (mm Hg) 99 Source Monitor Position Semi-Fowlers Blood Pressure Location Left Forearm History Since Last Visit- (Skip if this is Patient's initial visit) Have you changed medications since your No last visit? Any new allergies or adverse reactions No Had a fall/change in ADL's that may No increase risk of falls Signs or symptoms of abuse and/or No neglect since last visit Have you been in the hospital since your No last visit? Has dressing in place as prescribed Yes Has compression in place as prescribed Yes Has offloadiing in place as prescribed No Experienced any changes in pain level or No management Left Footwear Regular Shoe Right Footwear Regular Shoe Pain Scale: 0-10 Numeric Is Patient Pain Free? Yes - Nurse 1 - General Ulcer Measurement Start: 05/24/23 09:14 Freq: Status: Active Protocol: Activity Type Activity Date Activity User E-sign Co-sign Detail Recorded Client Recorded Date Recorded By Document 05/24/23 09:14 KW [id number] 05/24/23 09:27 05/24/23 09:14 Wound Center Nurse 1 #10 Med LE cluster -Current Size (cm) - Length 0.5 -Current Size (cm) - Width 1.0 -Current Size (cm) - Depth 0.1 -Total Square Cm 0.50 -Epithelialization Small 1-33% -Tunneling No -Undermining/Tunneling No -Circular Undermining No -Exudate Amt Small -Exudate Type Serosanguineous -Wound Margin Distinct, Outline Attached -Granulation Amt Small (1-33%) -Granulation Quality Red -Necrosis Amt Small (1-33%) -Texture (Verónica-wound Skin Appearance) Assessed -Moisture (Verónica-wound Skin Appearance) Assessed -Color (Verónica-wound Skin Appearance) Assessed, Erythema -Temperature (Verónica-wound Skin No Abnormality Appearance) (Pt Warm) -Ulcer Cleansing Soap and Water -Anesthetic Used 5% Lidocaine Gel #7- L TORRES -Current Size (cm) - Length 2.5 -Current Size (cm) - Width 1.5 -Current Size (cm) - Depth 0.2 -Total Square Cm 3.75 -Photo Taken No -Epithelialization Medium 34-66% -Tunneling No -Undermining/Tunneling No -Circular Undermining No -Exudate Amt Small -Exudate Type Serosanguineous -Wound Margin Distinct, Outline Attached -Granulation Amt Large (67-100%) -Granulation Quality Red -Slough/Fibrin Yes -Necrosis Amt Small (1-33%) -Necrotic Tissue Type Adherent Slough -Texture (Verónica-wound Skin Appearance) Assessed -Moisture (Verónica-wound Skin Appearance) Assessed, Weeping -Color (Verónica-wound Skin Appearance) Assessed, Erythema -Temperature (Verónica-wound Skin No Abnormality Appearance) (Pt Warm) -Ulcer Cleansing Soap and Water -Anesthetic Used 5% Lidocaine Gel Lower Limb Edema Present NA WC - Nurse 2 - General Ulcer CM Notes Start: 05/24/23 09:14 Freq: Status: Active Protocol: Activity Type Activity Date Activity User E-sign Co-sign Detail Recorded Client Recorded Date Recorded By Document 05/24/23 09:41 CARLOS [id number] 05/24/23 09:44 CARLOS 05/24/23 09:41 Wound Center Nurse 2 #10 Med LE cluster -Time 09:42 -Correct Patient Yes -Correct Side, Site, Position Yes -Correct Procedure Yes -Procedure Performed Yes -Type of Procedure Debridement -Clinical Debridement Subcutaneous -Tissue Removed Subcutaneous -Post Debridement (cm) - Length 0.7 -Post Debridement (cm) - Width 1.7 -Post Debridement (cm) - Depth 0.2 -Total Square (Post) (cm) 1.19 -Area of Debridement (cm) - Length 0.7 -Area of Debridement (cm) - Width 1.7 -Total Square (Area) (cm) 1.19 -Tunneling No -Undermining/Tunneling No -Circular Undermining No -Wound/Ulcer Outcome Not Healed -Ulcer Cleansing Rinsed/ Irrigated with Saline -Foul Odor after Cleansing No -Bioengineered Tissue No -Bleeding Controlled with Pressure -Treatment Response Procedure Tolerated Well -Offloading No -Debridement - Subq, 1st 20sq cm No #7- L TORRES -Time 09:42 -Correct Patient Yes -Correct Side, Site, Position Yes -Correct Procedure Yes -Procedure Performed Yes -Type of Procedure Debridement -Clinical Debridement Subcutaneous -Tissue Removed Subcutaneous -Post Debridement (cm) - Length 2.8 -Post Debridement (cm) - Width 2.8 -Post Debridement (cm) - Depth 0.2 -Total Square (Post) (cm) 7.84 -Area of Debridement (cm) - Length 2.8 -Area of Debridement (cm) - Width 2.8 -Total Square (Area) (cm) 7.84 -Tunneling No -Undermining/Tunneling No -Circular Undermining No -Wound/Ulcer Outcome Not Healed -Ulcer Cleansing Rinsed/ Irrigated with Saline -Foul Odor after Cleansing No -Bioengineered Tissue No -Bleeding Controlled with Pressure -Treatment Response Procedure Tolerated Well -Offloading No -Debridement - Subq, 1st 20sq cm Yes Pain Scale: 0-10 Numeric Is Patient Pain Free? Yes - Nurse 3 - General Ulcer D/C NN Start: 05/24/23 09:14 Freq: Status: Active Protocol: Activity Type Activity Date Activity User E-sign Co-sign Detail Recorded Client Recorded Date Recorded By Document 05/24/23 09:50 [id number] 05/24/23 09:52 KW 05/24/23 09:50 Wound Care Center Nurse 3 #10 Med LE cluster -Ulcer Cleansing Rinsed/ Irrigated with Saline -Primary Dressing Applied Aquacel AG 2x2 -Primary Dressing Covered/Secured with Dry Gauze & Roll Gauze, Secured with Tape -Aquacel AG 2x2 1 #7- L TORRES -Ulcer Cleansing Rinsed/ Irrigated with Saline -Primary Dressing Applied Aquacel AG 2x2 -Primary Dressing Covered/Secured with Dry Gauze & Roll Gauze, Secured with Tape -Aquacel AG 2x2 1 LT -Compression Wrap Silvestre Wrap -Tubular Bandage Double Layer -Size of Tubigrip Used Size E -Size E ($) 2 Pain Scale: 0-10 Numeric Is Patient Pain Free? Yes LLE -Description Sharp -Intensity 5 -Duration (hours) Acute -Pain Behavior No Change in Behavior -Alleviating Factors/Interventions Inactivity/ Resting,Patient denies need for intervention WC - Visit Discharge Discharge Condition Stable Ambulatory Status Ambulatory Transportation Private Auto Medication Reconcilliation completed & No provided to patient/care provider Clinical Summary of Care Provided Yes Additional Wound Wound debrided: medial ulcer cluster Laterality: Left Type of Debridement: Excisional debridement Anesthesia Used: 5% Lidocaine Gel Depth: Down to and including healthy tissue and in the subcutaneous layer Percentage of wound debrided: 100 Instrument Used: 3mm curette Tissue Removed: Devitalized tissue and slough Severity: Fat Layer Exposed Amount of bleeding with debridement: Mild Bleeding Controlled with: Compression and gauze Patient tolerated procedure: Patient tolerated procedure well Assessment/Plan Assessment/Plan (1) Chronic ulcer of left leg with fat layer exposed: CODE(S): L97.922 - Non-pressure chronic ulcer of unspecified part of left lower leg with fat layer exposed (2) Edema of both lower extremities: CODE(S): R60.0 - Localized edema (3) Venous insufficiency (chronic) (peripheral): CODE(S): I87.2 - Venous insufficiency (chronic) (peripheral) (4) Diabetes mellitus type 2, uncontrolled, with complications: CODE(S): E11.8 - Type 2 diabetes mellitus with unspecified complications; E11.65 - Type 2 diabetes mellitus with hyperglycemia (5) Nausea & vomiting: CODE(S): R11.2 - Nausea with vomiting, unspecified PLAN: Plan Patient was evaluated at the wound healing center today. Wound care will be moistened Aquacel-Ag covered with gauze dressing every other day when home health is able to assist. Compression - Double tubigrip. Make sure to place over knee to prevent it from rolling down. Top with SILVESTRE wrap to help keep the tubigrip in place. Ordered Circaid stocking for compression. Her insurance will not cover them. She is not physically able to get 30-40 mmHg compression stockings on her self. She has purchased compression stockings with 8-15 mmHg. Will have her wear them both on her left leg so she is getting 15-30 mmHg. Instructed her how to place them. She states they are too short and she would like to get a new pair of stockings but cannot afford them at this time. Discussed with her that if she does not consistently wear compression, she will continue to have edema issue which can lead to skin breakdown. She verbalizes understanding. Instructed her that she may take her compression off at bedtime when she is in her bed and then place it back on first thing in the morning. Encouraged diet low in carbohydrates and high in protein. Venous study from 02/10/22 showed Left small saphenous vein was patent and incompetent. The rest of the study was normal. Arterial study from 02/10/22 showed Right MARILU 1.06 and Left MARILU 1.07. Waveforms were Triphasic bilaterally. No signs of arterial disease. Wound culture from 03/08/23 positive for MSSA. She was started on Doxycycline due to her PCN allergy. Wound culture obtained 04/26/23 which was positive for Staphylococcus aureus that was resistant to Doxycycline and Bactrim, she is allergic to PCN and cephalosporins and she is on several medications that interact with Linezolid, therefore insurance approval was obtained to start her on a new medication Nuzyra which she has completed. Follow up one week.
[2023-05-31 09:15] VITALS: BP 116/73; PULSE 87; RESP 18; BMI 49.7
--- NOTE | 2023-05-31 11:55 | PCM.WC.PN ---
History of Present Illness Date of Service: 05/31/23 Chief Complaint: Left anterior leg ulcers History of Wound: 57-year-old female who originally had a traumatic hematoma in 2012 to her left anterior leg and had an operative debridement and eventually had skin graft placement. She has been seen periodically at the wound center for chronic ulcers to her legs over the years. She has most recently been seeing Dr. Chang for her wound care. Her most significant issue at this time is her edema/lymphedema. When her edema becomes severe, she develops ulcers on her legs. She has a history of T2D, COPD, chronic venous insufficiency, cellulitis, chest pain, left ventricular aneurysm, HTN, Bipolar, ADHD, ABRAM, chronic pain syndrome, GERD. Wound culture from 03/08/23 positive for Staphylococcus aureus and she was started on Doxycycline. Wound culture obtained 04/26/23 which was positive for Staphylococcus aureus that was resistant to Doxycycline and Bactrim, she is allergic to PCN and cephalosporins and she is on several medications that interact with Linezolid, therefore insurance approval was obtained to start her on a new medication Nuzyra which she started 05/02/23. She currently denies fever, chills. Progress of Wound: Left anterior leg ulcer is smaller in size and left medial leg ulcer is almost healed. She is having issues with the tubigrip compression rolling down again, even with the SILVESTRE wraps over it. Objective Data Objective Data Vital Signs: Vital Signs Temp Pulse Resp BP O2 Del Method 96.5 F L 87 18 116/73 Room Air 05/24/23 09:14 05/31/23 09:15 05/31/23 09:15 05/31/23 09:15 05/31/23 09:15 Oxygen Delivery Method Room Air Weight: 299 lb Body Mass Index (BMI) 49.7 Charges/Coding Procedures Integumentary 111xxx-113xx: [id number] Joie subq tissue 20 sq cm/< Debridement Note Debridement Note Wound debrided: Anterior leg proximal ulcer cluster Laterality: Left Wound Grade/Stage: Stage II Type of Debridement: Excisional debridement Anesthesia Used: 4% Lidocaine Solution Depth: Down to and including healthy tissue and in the subcutaneous layer Percentage of wound debrided: 100 Instrument Used: 5mm curette Tissue Removed: Devitalized tissue and slough Severity: Limited To Skin Breakdown Amount of bleeding with debridement: Mild Bleeding Controlled with: Pressure and Compression and gauze Patient tolerated procedure: Patient tolerated procedure well Post-Debridement Measurements and Additional Note: Post-Debridement Measurements/Treatment NILO - Nurse 1 - General Ulcer Assessment Start: 05/24/23 09:14 Freq: Status: Active Protocol: PERRY Activity Type Activity Date Activity User E-sign Co-sign Detail Recorded Client Recorded Date Recorded By Document 05/24/23 09:14 [id number] 05/24/23 09:27 KW Document 05/31/23 09:15 [facility] [id number] 05/31/23 09:23 BM 05/24/23 05/31/23 09:14 09:15 WC - Today's Visit Information Type of service Follow-up Visit Follow-up Visit (Physician/CITY EDITOR (Physician/CITY EDITOR ) ) Arrival Mode Ambulatory Ambulatory Transfer Assistance None Patient Identification Verified (Name & Yes Yes ) Patient Requires Transmission-Based No Precautions Safety Precautions NA Height and Weight Body Mass Index (BMI) 49.7 49.7 BMI Classification Obese Obese Vital Signs Temperature (97.8 F-99.1 F) 96.5 F L Temperature Source Temporal Pulse Rate (60-100) 75 87 Pulse Location Monitor Monitor Respiratory Rate (12-18) 16 18 Respiratory rate source Observation Observation Oxygen Delivery Method Room Air Room Air Blood Pressure (90/60-120/80) 133/82 H 116/73 Blood Pressure Mean (mm Hg) 99 87 Source Monitor Monitor Position Semi-Fowlers Sitting Blood Pressure Location Left Forearm Left Forearm History Since Last Visit- (Skip if this is Patient's initial visit) Have you changed medications since your No No last visit? Any new allergies or adverse reactions No No Had a fall/change in ADL's that may No No increase risk of falls Signs or symptoms of abuse and/or No No neglect since last visit Have you been in the hospital since your No No last visit? Has dressing in place as prescribed Yes Yes Has compression in place as prescribed Yes Yes Has offloadiing in place as prescribed No N/A Experienced any changes in pain level or No No management Left Footwear Regular Shoe Regular Shoe Right Footwear Regular Shoe Regular Shoe Pain Scale: 0-10 Numeric Is Patient Pain Free? Yes Yes NILO - Nurse 1 - General Ulcer Measurement Start: 05/24/23 09:14 Freq: Status: Active Protocol: Activity Type Activity Date Activity User E-sign Co-sign Detail Recorded Client Recorded Date Recorded By Document 05/24/23 09:14 [id number] 05/24/23 09:27 Document 05/31/23 09:15 [facility] [id number] 05/31/23 09:23 BM 05/24/23 05/31/23 09:14 09:15 Wound Center Nurse 1 #10 Med LE cluster -Combined with other wound No -Current Size (cm) - Length 0.5 0.3 -Current Size (cm) - Width 1.0 0.5 -Current Size (cm) - Depth 0.1 0.2 -Total Square Cm 0.50 0.15 -Photo Taken No -Epithelialization Small 1-33% Small 1-33% -Tunneling No No -Undermining/Tunneling No No -Circular Undermining No No -Exudate Amt Small Medium -Exudate Type Serosanguineous Serosanguineous -Wound Margin Distinct, Distinct, Outline Outline Attached Attached -Granulation Amt Small (1-33%) Medium (34-66%) -Granulation Quality Red Red -Slough/Fibrin Yes -Necrosis Amt Small (1-33%) Medium (34-66%) -Necrotic Tissue Type Adherent Slough -Texture (Verónica-wound Skin Appearance) Assessed Assessed -Moisture (Verónica-wound Skin Appearance) Assessed Assessed,Dry/ Scaly -Color (Verónica-wound Skin Appearance) Assessed, Assessed Erythema -Temperature (Verónica-wound Skin No Abnormality No Abnormality Appearance) (Pt Warm) (Pt Warm) -Tenderness on Palpation (Verónica-wound No Skin Appearance) -Ulcer Cleansing Soap and Water Rinsed/ Irrigated with Saline -Foul Odor after Cleansing No -Anesthetic Used 5% Lidocaine 5% Lidocaine Gel Gel #7- L TORRES -Combined with other wound No -Current Size (cm) - Length 2.5 2.1 -Current Size (cm) - Width 1.5 1.7 -Current Size (cm) - Depth 0.2 0.3 -Total Square Cm 3.75 3.57 -Photo Taken No No -Epithelialization Medium 34-66% None Present -Tunneling No No -Undermining/Tunneling No No -Circular Undermining No No -Exudate Amt Small Medium -Exudate Type Serosanguineous Serosanguineous -Wound Margin Distinct, Distinct, Outline Outline Attached Attached -Granulation Amt Large (67-100%) Large (67-100%) -Granulation Quality Red Red -Slough/Fibrin Yes Yes -Necrosis Amt Small (1-33%) Small (1-33%) -Necrotic Tissue Type Adherent Slough Adherent Slough -Texture (Verónica-wound Skin Appearance) Assessed Assessed, Scarring -Moisture (Verónica-wound Skin Appearance) Assessed, Assessed,Dry/ Weeping Scaly -Color (Verónica-wound Skin Appearance) Assessed, Assessed Erythema -Temperature (Veróniac-wound Skin No Abnormality No Abnormality Appearance) (Pt Warm) (Pt Warm) -Tenderness on Palpation (Verónica-wound No Skin Appearance) -Ulcer Cleansing Soap and Water Rinsed/ Irrigated with Saline -Foul Odor after Cleansing No -Anesthetic Used 5% Lidocaine 5% Lidocaine Gel Gel Lower Limb Edema Present NA Yes Left Calf (cm) 52.3 Left Ankle (cm) 23 WC - Nurse 2 - General Ulcer CM Notes Start: 05/24/23 09:14 Freq: Status: Active Protocol: Activity Type Activity Date Activity User E-sign Co-sign Detail Recorded Client Recorded Date Recorded By Document 05/24/23 09:41 [id number] 05/24/23 09:44 Document 05/31/23 09:29 [id number] 05/31/23 09:34 05/24/23 05/31/23 09:41 09:29 Wound Center Nurse 2 #10 Med cluster -Time 09:42 09:30 -Correct Patient Yes Yes -Correct Side, Site, Position Yes Yes -Correct Procedure Yes Yes -Procedure Performed Yes Yes -Type of Procedure Debridement Debridement -Clinical Debridement Subcutaneous Subcutaneous -Tissue Removed Subcutaneous Subcutaneous -Post Debridement (cm) - Length 0.7 0.5 -Post Debridement (cm) - Width 1.7 0.8 -Post Debridement (cm) - Depth 0.2 0.2 -Total Square (Post) (cm) 1.19 0.40 -Area of Debridement (cm) - Length 0.7 0.5 -Area of Debridement (cm) - Width 1.7 0.8 -Total Square (Area) (cm) 1.19 0.40 -Tunneling No No -Undermining/Tunneling No No -Circular Undermining No No -Wound/Ulcer Outcome Not Healed Not Healed -Ulcer Cleansing Rinsed/ Rinsed/ Irrigated with Irrigated with Saline Saline -Foul Odor after Cleansing No No -Bioengineered Tissue No No -Bleeding Controlled with Pressure Pressure -Treatment Response Procedure Procedure Tolerated Well Tolerated Well -Offloading No -Debridement - Subq, 1st 20sq cm No No #7- L TORRES -Time 09:42 09:30 -Correct Patient Yes Yes -Correct Side, Site, Position Yes Yes -Correct Procedure Yes Yes -Procedure Performed Yes Yes -Type of Procedure Debridement Debridement -Clinical Debridement Subcutaneous Subcutaneous -Tissue Removed Subcutaneous Subcutaneous -Post Debridement (cm) - Length 2.8 2.3 -Post Debridement (cm) - Width 2.8 1.7 -Post Debridement (cm) - Depth 0.2 0.2 -Total Square (Post) (cm) 7.84 3.91 -Area of Debridement (cm) - Length 2.8 2.3 -Area of Debridement (cm) - Width 2.8 1.7 -Total Square (Area) (cm) 7.84 3.91 -Tunneling No No -Undermining/Tunneling No No -Circular Undermining No No -Wound/Ulcer Outcome Not Healed Not Healed -Ulcer Cleansing Rinsed/ Rinsed/ Irrigated with Irrigated with Saline Saline -Foul Odor after Cleansing No No -Bioengineered Tissue No No -Bleeding Controlled with Pressure Pressure -Treatment Response Procedure Procedure Tolerated Well Tolerated Well -Offloading No No -Debridement - Subq, 1st 20sq cm Yes Yes Pain Scale: 0-10 Numeric Is Patient Pain Free? Yes Yes - Nurse 3 - General Ulcer D/C NN Start: 05/24/23 09:14 Freq: Status: Active Protocol: Activity Type Activity Date Activity User E-sign Co-sign Detail Recorded Client Recorded Date Recorded By Document 05/24/23 09:50 KW [id number] 05/24/23 09:52 KW Document 05/31/23 09:34 JF [id number] 05/31/23 09:35 JF 05/24/23 05/31/23 09:50 09:34 Wound Care Center Nurse 3 #10 Med LE cluster -Ulcer Cleansing Rinsed/ Rinsed/ Irrigated with Irrigated with Saline Saline -Foul Odor after Cleansing No -Primary Dressing Applied Aquacel AG 2x2 Aquacel AG 2x2, Mepilex Border -Primary Dressing Covered/Secured with Dry Gauze & Dry Gauze Roll Gauze, Secured with Tape -Aquacel AG 2x2 1 1 -Mepilex Border 1 #7- L TORRES -Ulcer Cleansing Rinsed/ Rinsed/ Irrigated with Irrigated with Saline Saline -Foul Odor after Cleansing No -Primary Dressing Applied Aquacel AG 2x2 Aquacel AG 2x2, Mepilex Border -Primary Dressing Covered/Secured with Dry Gauze & Dry Gauze Roll Gauze, Secured with Tape -Aquacel AG 2x2 1 0 -Mepilex Border 1 LT -Compression Wrap Silvestre Wrap Silvestre Wrap -Tubular Bandage Double Layer -Size of Tubigrip Used Size E -Size E ($) 2 Pain Scale: 0-10 Numeric Is Patient Pain Free? Yes Yes LLE -Description Sharp -Intensity 5 -Duration (hours) Acute -Pain Behavior No Change in Behavior -Alleviating Factors/Interventions Inactivity/ Resting,Patient denies need for intervention WC - Visit Discharge Discharge Condition Stable Stable Ambulatory Status Ambulatory Ambulatory Transportation Private Auto Private Auto Medication Reconcilliation completed & No Yes provided to patient/care provider Clinical Summary of Care Provided Yes Yes Additional Wound Wound debrided: medial ulcer cluster Laterality: Left Type of Debridement: Excisional debridement Anesthesia Used: 5% Lidocaine Gel Depth: Down to and including healthy tissue and in the subcutaneous layer Percentage of wound debrided: 100 Instrument Used: 3mm curette Tissue Removed: Devitalized tissue and slough Severity: Fat Layer Exposed Amount of bleeding with debridement: Mild Bleeding Controlled with: Compression and gauze Patient tolerated procedure: Patient tolerated procedure well Assessment/Plan Assessment/Plan (1) Chronic ulcer of left leg with fat layer exposed: CODE(S): L97.922 - Non-pressure chronic ulcer of unspecified part of left lower leg with fat layer exposed (2) Edema of both lower extremities: CODE(S): R60.0 - Localized edema (3) Venous insufficiency (chronic) (peripheral): CODE(S): I87.2 - Venous insufficiency (chronic) (peripheral) (4) Diabetes mellitus type 2, uncontrolled, with complications: CODE(S): E11.8 - Type 2 diabetes mellitus with unspecified complications; E11.65 - Type 2 diabetes mellitus with hyperglycemia (5) Nausea & vomiting: CODE(S): R11.2 - Nausea with vomiting, unspecified PLAN: Plan Patient was evaluated at the wound healing center today. Wound care will be moistened Aquacel-Ag covered with gauze topped with Ulman SAP dressing every other day. Compression - Double SILVESTRE wrap. Ordered Circaid stocking for compression. Her insurance will not cover them. She is not physically able to get 30-40 mmHg compression stockings on her self. She has purchased compression stockings with 8-15 mmHg. Will have her wear them both on her left leg so she is getting 15-30 mmHg. Instructed her how to place them. She states they are too short and she would like to get a new pair of stockings but cannot afford them at this time. Discussed with her that if she does not consistently wear compression, she will continue to have edema issue which can lead to skin breakdown. She verbalizes understanding. Instructed her that she may take her compression off at bedtime when she is in her bed and then place it back on first thing in the morning. Encouraged diet low in carbohydrates and high in protein. Venous study from 02/10/22 showed Left small saphenous vein was patent and incompetent. The rest of the study was normal. Arterial study from 02/10/22 showed Right MARILU 1.06 and Left MARILU 1.07. Waveforms were Triphasic bilaterally. No signs of arterial disease. Wound culture from 03/08/23 positive for MSSA. She was started on Doxycycline due to her PCN allergy. Wound culture obtained 04/26/23 which was positive for Staphylococcus aureus that was resistant to Doxycycline and Bactrim, she is allergic to PCN and cephalosporins and she is on several medications that interact with Linezolid, therefore insurance approval was obtained to start her on a new medication Nuzyra which she has completed. Follow up one week.
[2023-06-07 09:02] VITALS: BP 125/78; PULSE 80; RESP 18; TEMP 36.6; BMI 49.7
--- NOTE | 2023-06-07 09:35 | PCM.WC.HP ---
History of Present Illness Date of Service: 06/07/23 Chief Complaint: Left anterior leg ulcers History of Wound: 57-year-old female who originally had a traumatic hematoma in 2012 to her left anterior leg and had an operative debridement and eventually had skin graft placement. She has been seen periodically at the wound center for chronic ulcers to her legs over the years. She has most recently been seeing Dr. Chang for her wound care. Her most significant issue at this time is her edema/lymphedema. When her edema becomes severe, she develops ulcers on her legs. She has a history of T2D, COPD, chronic venous insufficiency, cellulitis, chest pain, left ventricular aneurysm, HTN, Bipolar, ADHD, ABRAM, chronic pain syndrome, GERD. Wound culture from 03/08/23 positive for Staphylococcus aureus and she was started on Doxycycline. Wound culture obtained 04/26/23 which was positive for Staphylococcus aureus that was resistant to Doxycycline and Bactrim, she is allergic to PCN and cephalosporins and she is on several medications that interact with Linezolid, therefore insurance approval was obtained to start her on a new medication Nuzyra which she started 05/02/23. She currently denies fever, chills. Progress of Wound: Left anterior leg ulcer is stable in size and left medial leg ulcer is almost healed. She states that home health has discharged her and she is now able to do her dressing changes. [facility] Medical History ADHD (attention deficit hyperactivity disorder) Arthritis Asthma Back pain Benign hypertension Bipolar disorder Chest pain COPD (chronic obstructive pulmonary disease) Depression Diabetes Diabetes mellitus type 2, uncontrolled, with complications Essential hypertension Fatigue GERD (gastroesophageal reflux disease) Hemorrhoids Knee pain Migraines Obstructive sleep apnea Open wound of left lower extremity Pain syndrome, chronic PTSD (post-traumatic stress disorder) Schizo affective schizophrenia Stasis dermatitis of both legs Super obese Venous insufficiency of both lower extremities Home Medications bupropion HCl 300 mg 24 hr tablet, extended release 450 mg PO DAILY mental health 03/05/17 [History Last Taken 07/07/18] albuterol sulfate 90 mcg/actuation aerosol inhaler 2 puff inhalation Q4H PRN PRN Sob &/Or Wheezing 05/29/18 [History Last Taken 07/07/18] glimepiride 2 mg tablet 4 mg PO BID diabetes 09/20/18 [History Last Taken Unknown] dicyclomine 10 mg capsule 20 mg (2 x 10 mg) PO TIDAC #20 caps 07/28/19 [Rx Last Taken Unknown] escitalopram oxalate 10 mg tablet 20 mg PO DAILY mental health 08/04/19 [History Last Taken Unknown] fluticasone propionate 50 mcg/actuation nasal spray,suspension 2 spray NASAL DAILY allergies 08/04/19 [History Last Taken Unknown] tizanidine 4 mg capsule 4 mg PO BID PRN Muscle Spasm 07/15/20 [History Last Taken Unknown] aspirin 81 mg chewable tablet 81 mg PO DAILY@0800 07/17/20 [Rx Last Taken Unknown] nadolol 80 mg tablet 80 mg PO BID high blood pressure 07/08/21 [History Last Taken Unknown] buspirone 10 mg tablet 20 mg PO TID 01/25/22 [History Last Taken Unknown] cetirizine 10 mg tablet (Zyrtec) 10 mg PO DAILY 01/25/22 [History Last Taken Unknown] colchicine (gout) 0.6 mg tablet 0.6 mg PO DAILY 01/25/22 [History Last Taken Unknown] guaifenesin 600 mg tablet, extended release 12 hr (Mucinex) 1,200 mg PO BID PRN Cough 01/25/22 [History Last Taken Unknown] hydroxyzine pamoate 25 mg capsule (Vistaril) 25 - 75 mg PO BID PRN Itching 01/25/22 [History Last Taken Unknown] hyoscyamine sulfate 0.125 mg tablet (Levsin) 0.125 mg PO Q6H PRN IBS 01/25/22 [History Last Taken Unknown] ketorolac 10 mg tablet 10 mg PO Q6H PRN SEVERE HEADACHE 01/25/22 [History Last Taken Unknown] lidocaine 4 % topical cream 1 applic topical TID PRN Pain 01/25/22 [History Last Taken Unknown] lisinopril 20 mg tablet 10 mg PO BID 01/25/22 [History Last Taken Unknown] lorazepam 0.5 mg tablet (Ativan) 0.5 - 1 mg PO BID PRN Panic Attack(S) 01/25/22 [History Last Taken Unknown] naratriptan 2.5 mg tablet (Amerge) 2.5 mg PO Q4H PRN Headache 01/25/22 [History Last Taken Unknown] primidone 250 mg tablet 250 mg PO BID 01/25/22 [History Last Taken Unknown] tramadol 50 mg tablet 50 - 100 mg PO Q6H PRN Pain 01/25/22 [History Last Taken Unknown] trazodone 50 mg tablet 150 mg PO QHS 01/25/22 [History Last Taken Unknown] triamcinolone acetonide 0.1 % topical cream 1 applic topical TID PRN Rash 01/25/22 [History Last Taken Unknown] fluticasone 500 mcg-salmeterol 50 mcg/dose blistr powdr for inhalation 1 inh inhalation BID 05/02/22 [History Last Taken Unknown] insulin glargine 100 unit/mL (3 mL) subcutaneous pen (Lantus Solostar U-100 Insulin) 43 unit subcut QHS 05/02/22 [History Last Taken Unknown] omeprazole 40 mg capsule,delayed release 40 mg PO DAILY 05/02/22 [History Last Taken Unknown] oxybutynin chloride 10 mg tablet,extended release 24 hr 20 mg PO DAILY 05/02/22 [History Last Taken Unknown] paliperidone palmitate 117 mg/0.75 mL intramuscular syringe (Invega Sustenna) 117 mg IM [id number] 05/02/22 [History Last Taken Unknown] ergocalciferol (vitamin D2) 1,250 mcg (50,000 unit) capsule (Vitamin D2) 50,000 unit PO 2XW 08/10/22 [History Last Taken Unknown] insulin lispro 100 unit/mL subcutaneous pen See Rx Instructions subcut QAC 08/10/22 [History Last Taken Unknown] lactulose 10 gram/15 mL oral solution 30 ml PO BID PRN Constipation 08/10/22 [History Last Taken Unknown] pregabalin 150 mg capsule 150 mg PO TID 08/10/22 [History Last Taken Unknown] valacyclovir 500 mg tablet 500 mg PO DAILY 08/10/22 [History Last Taken Unknown] doxycycline monohydrate 100 mg tablet 100 mg PO BID 14 days #28 tabs 03/14/23 [Rx Last Taken Unknown] ondansetron 4 mg disintegrating tablet 8 mg (2 x 4 mg) PO Q8H PRN PRN Nausea #20 tabs 05/08/23 [Rx Last Taken Unknown] promethazine 25 mg tablet 25 mg PO Q6H PRN nausea and vomiting 7 days #28 tabs 05/10/23 [Rx Last Taken Unknown] Allergy/AdvReac Type Severity Reaction Status Date / Time vancomycin Allergy Severe BURNING Verified 05/08/23 08:16 RED RASH ON LEGGS amlodipine [From Norvasc] Allergy Swelling Verified 05/08/23 08:16 cefazolin sodium [From Ancef] Allergy Hives Verified 05/08/23 08:16 fexofenadine [From Nia] Allergy Shortness Verified 05/08/23 08:16 of breath nitrofurantoin Allergy Hives Verified 05/08/23 08:16 [From Macrobid] peanut Allergy Shortness Verified 05/08/23 08:16 of breath Penicillins Allergy Hives Verified 05/08/23 08:16 sumatriptan [From Imitrex] Allergy Shortness Verified 05/08/23 08:16 of breath adhesive AdvReac BURNING Verified 05/08/23 08:16 amitriptyline [From Elavil] AdvReac Other Verified 05/08/23 08:16 clindamycin AdvReac Diarrhea Verified 05/08/23 08:16 ziprasidone [From Geodon] AdvReac NEEDS Verified 05/08/23 08:16 FOLLOW-UP Family History Father CVA (cerebral vascular accident) Heart disease Mother Heart disease Surgical History H/O hernia repair History of arthroscopic knee surgery History of elbow surgery (~06/2020) History of left heart catheterization (07/16/20) Hx of section Hx of hysterectomy Kidney stone Social History household members: spouse Smoking Status: Never smoker alcohol intake: current alcohol intake frequency: holidays/special occasions only Alcohol type: wine substance use type: does not use caffeine: Yes (occasionally) Vital Signs Vital Signs Vital Signs: 06/07/23 09:02 Temperature 97.8 F Temperature Source Temporal Pulse Rate 80 Respiratory Rate 18 Blood Pressure 125/78 H Blood Pressure Mean 93 Weight Weight: 299 lb Body Mass Index (BMI) 49.7 Debridement Note Debridement Note Wound debrided: Anterior leg proximal ulcer cluster Laterality: Left Wound Grade/Stage: Stage II Type of Debridement: Excisional debridement Anesthesia Used: 4% Lidocaine Solution Depth: Down to and including healthy tissue and in the subcutaneous layer Percentage of wound debrided: 100 Instrument Used: 5mm curette Tissue Removed: Devitalized tissue and slough Severity: Limited To Skin Breakdown Amount of bleeding with debridement: Mild Bleeding Controlled with: Pressure and Compression and gauze Patient tolerated procedure: Patient tolerated procedure well Post-Debridement Measurements and Additional Note: Post-Debridement Measurements/Treatment - Nurse 1 - General Ulcer Assessment Start: 05/24/23 09:14 Freq: Status: Active Protocol: PERRY Activity Type Activity Date Activity User E-sign Co-sign Detail Recorded Client Recorded Date Recorded By Document 05/24/23 09:14 KW [id number] 05/24/23 09:27 KW Document 05/31/23 09:15 [facility] [id number] 05/31/23 09:23 [facility] Document 06/07/23 09:02 [address] [id number] 06/07/23 09:11 PL 05/24/23 05/31/23 06/07/23 09:14 09:15 09:02 - Today's Visit Information Type of service Follow-up Visit Follow-up Visit Follow-up Visit (Physician/RNP (Physician/RNP (Physician/RNP ) ) ) Arrival Mode Ambulatory Ambulatory Ambulatory Transfer Assistance None None Patient Identification Verified (Name & Yes Yes Yes ) Patient Requires Transmission-Based No No Precautions Safety Precautions NA NA Finger Stick Blood Sugar(mg/dl) (if 141 indicated): Blood Sugar Stated by Patient Height and Weight Body Mass Index (BMI) 49.7 49.7 49.7 BMI Classification Obese Obese Obese Vital Signs Temperature (97.8 F-99.1 F) 96.5 F L 97.8 F Temperature Source Temporal Temporal Pulse Rate (60-100) 75 87 80 Pulse Location Monitor Monitor Respiratory Rate (12-18) 16 18 18 Respiratory rate source Observation Observation Oxygen Delivery Method Room Air Room Air Blood Pressure (90/60-120/80) 133/82 H 116/73 125/78 H Blood Pressure Mean 99 87 93 Source Monitor Monitor Position Semi-Fowlers Sitting Blood Pressure Location Left Forearm Left Forearm History Since Last Visit- (Skip if this is Patient's initial visit) Have you changed medications since your No No No last visit? Any new allergies or adverse reactions No No No Had a fall/change in ADL's that may No No No increase risk of falls Signs or symptoms of abuse and/or No No No neglect since last visit Have you been in the hospital since your No No No last visit? Has dressing in place as prescribed Yes Yes Yes Has compression in place as prescribed Yes Yes Yes Has offloadiing in place as prescribed No N/A N/A Experienced any changes in pain level or No No No management Left Footwear Regular Shoe Regular Shoe Right Footwear Regular Shoe Regular Shoe Pain Scale: 0-10 Numeric Is Patient Pain Free? Yes Yes Yes WC - Nurse 1 - General Ulcer Measurement Start: 05/24/23 09:14 Freq: Status: Active Protocol: Activity Type Activity Date Activity User E-sign Co-sign Detail Recorded Client Recorded Date Recorded By Document 05/24/23 09:14 KW [id number] 05/24/23 09:27 KW Document 05/31/23 09:15 [facility] [id number] 05/31/23 09:23 [facility] Document 06/07/23 09:02 PL [id number] 06/07/23 09:11 PL 05/24/23 05/31/23 06/07/23 09:14 09:15 09:02 Wound Center Nurse 1 #10 Med LE cluster -Combined with other wound No No -Current Size (cm) - Length 0.5 0.3 0.1 -Current Size (cm) - Width 1.0 0.5 0.1 -Current Size (cm) - Depth 0.1 0.2 0.1 -Total Square Cm 0.50 0.15 0.01 -Photo Taken No No -Epithelialization Small 1-33% Small 1-33% Medium 34-66% -Tunneling No No No -Undermining/Tunneling No No No -Circular Undermining No No No -Classification - Thickness Partial Thickness -Exudate Amt Small Medium Small -Exudate Type Serosanguineous Serosanguineous Serosanguineous -Wound Margin Distinct, Distinct, Outline Outline Attached Attached -Granulation Amt Small (1-33%) Medium (34-66%) Medium (34-66%) -Granulation Quality Red Red Pale -Slough/Fibrin Yes Yes -Necrosis Amt Small (1-33%) Medium (34-66%) Medium (34-66%) -Necrotic Tissue Type Adherent Slough Adherent Slough -Texture (Verónica-wound Skin Appearance) Assessed Assessed -Moisture (Verónica-wound Skin Appearance) Assessed Assessed,Dry/ Scaly -Color (Verónica-wound Skin Appearance) Assessed, Assessed Erythema -Temperature (Verónica-wound Skin No Abnormality No Abnormality Appearance) (Pt Warm) (Pt Warm) -Tenderness on Palpation (Verónica-wound No Skin Appearance) -Ulcer Cleansing Soap and Water Rinsed/ Irrigated with Saline -Foul Odor after Cleansing No -Anesthetic Used 5% Lidocaine 5% Lidocaine Gel Gel #7- L TORRES -Combined with other wound No No -Current Size (cm) - Length 2.5 2.1 1.5 -Current Size (cm) - Width 1.5 1.7 1.0 -Current Size (cm) - Depth 0.2 0.3 0.1 -Total Square Cm 3.75 3.57 1.50 -Photo Taken No No -Epithelialization Medium 34-66% None Present Medium 34-66% -Tunneling No No -Undermining/Tunneling No No -Circular Undermining No No -Exudate Amt Small Medium -Exudate Type Serosanguineous Serosanguineous -Wound Margin Distinct, Distinct, Outline Outline Attached Attached -Granulation Amt Large (67-100%) Large (67-100%) -Granulation Quality Red Red -Slough/Fibrin Yes Yes -Necrosis Amt Small (1-33%) Small (1-33%) -Necrotic Tissue Type Adherent Slough Adherent Slough -Texture (Verónica-wound Skin Appearance) Assessed Assessed, Scarring -Moisture (Verónica-wound Skin Appearance) Assessed, Assessed,Dry/ Weeping Scaly -Color (Verónica-wound Skin Appearance) Assessed, Assessed Erythema -Temperature (Verónica-wound Skin No Abnormality No Abnormality Appearance) (Pt Warm) (Pt Warm) -Tenderness on Palpation (Verónica-wound No Skin Appearance) -Ulcer Cleansing Soap and Water Rinsed/ Irrigated with Saline -Foul Odor after Cleansing No -Anesthetic Used 5% Lidocaine 5% Lidocaine Gel Gel Lower Limb Edema Present NA Yes Left Calf (cm) 52.3 Left Ankle (cm) 23 WC - Nurse 2 - General Ulcer CM Notes Start: 05/24/23 09:14 Freq: Status: Active Protocol: Activity Type Activity Date Activity User E-sign Co-sign Detail Recorded Client Recorded Date Recorded By Document 05/24/23 09:41 [id number] 05/24/23 09:44 Document 05/31/23 09:29 [id number] 05/31/23 09:34 Document 06/07/23 09:29 [id number] 06/07/23 09:32 05/24/23 05/31/23 06/07/23 09:41 09:29 09:29 Wound Center Nurse 2 #10 Med LE cluster -Time 09:30 09:29 -Correct Patient Yes Yes Yes -Correct Side, Site, Position Yes Yes Yes -Correct Procedure Yes Yes Yes -Procedure Performed Yes Yes Yes -Type of Procedure Debridement Debridement Debridement -Clinical Debridement Subcutaneous Subcutaneous Subcutaneous -Tissue Removed Subcutaneous Subcutaneous Subcutaneous -Post Debridement (cm) - Length 0.7 0.5 0.4 -Post Debridement (cm) - Width 1.7 0.8 0.7 -Post Debridement (cm) - Depth 0.2 0.2 0.1 -Total Square (Post) (cm) 1.19 0.40 0.28 -Area of Debridement (cm) - Length 0.7 0.5 0.4 -Area of Debridement (cm) - Width 1.7 0.8 0.7 -Total Square (Area) (cm) 1.19 0.40 0.28 -Tunneling No No No -Undermining/Tunneling No No No -Circular Undermining No No No -Wound/Ulcer Outcome Not Healed Not Healed Not Healed -Ulcer Cleansing Rinsed/ Rinsed/ Rinsed/ Irrigated with Irrigated with Irrigated with Saline Saline Saline -Foul Odor after Cleansing No No No -Bioengineered Tissue No No No -Bleeding Controlled with Pressure Pressure Pressure -Treatment Response Procedure Procedure Procedure Tolerated Well Tolerated Well Tolerated Well -Offloading No No -Debridement - Subq, 1st 20sq cm No No No #7- L TORRES -Time 09:30 09:29 -Correct Patient Yes Yes Yes -Correct Side, Site, Position Yes Yes Yes -Correct Procedure Yes Yes Yes -Procedure Performed Yes Yes Yes -Type of Procedure Debridement Debridement Debridement -Clinical Debridement Subcutaneous Subcutaneous Subcutaneous -Tissue Removed Subcutaneous Subcutaneous Subcutaneous -Post Debridement (cm) - Length 2.8 2.3 2.5 -Post Debridement (cm) - Width 2.8 1.7 1.7 -Post Debridement (cm) - Depth 0.2 0.2 0.2 -Total Square (Post) (cm) 7.84 3.91 4.25 -Area of Debridement (cm) - Length 2.8 2.3 2.5 -Area of Debridement (cm) - Width 2.8 1.7 1.7 -Total Square (Area) (cm) 7.84 3.91 4.25 -Tunneling No No No -Undermining/Tunneling No No No -Circular Undermining No No No -Wound/Ulcer Outcome Not Healed Not Healed Not Healed -Ulcer Cleansing Rinsed/ Rinsed/ Rinsed/ Irrigated with Irrigated with Irrigated with Saline Saline Saline -Foul Odor after Cleansing No No No -Bioengineered Tissue No No No -Bleeding Controlled with Pressure Pressure Pressure -Treatment Response Procedure Procedure Procedure Tolerated Well Tolerated Well Tolerated Well -Offloading No No No -Debridement - Subq, 1st 20sq cm Yes Yes Yes Pain Scale: 0-10 Numeric Is Patient Pain Free? Yes Yes Yes - Nurse 3 - General Ulcer D/C NN Start: 05/24/23 09:14 Freq: Status: Active Protocol: Activity Type Activity Date Activity User E-sign Co-sign Detail Recorded Client Recorded Date Recorded By Document 05/24/23 09:50 [id number] 05/24/23 09:52 KW Document 05/31/23 09:34 [id number] 05/31/23 09:35 Document 06/07/23 09:33 [id number] 06/07/23 09:33 05/24/23 05/31/23 06/07/23 09:50 09:34 09:33 Wound Care Center Nurse 3 #10 Med LE cluster -Ulcer Cleansing Rinsed/ Rinsed/ Rinsed/ Irrigated with Irrigated with Irrigated with Saline Saline Saline -Foul Odor after Cleansing No No -Primary Dressing Applied Aquacel AG 2x2 Aquacel AG 2x2, Aquacel AG 2x2 Mepilex Border -Primary Dressing Covered/Secured with Dry Gauze & Dry Gauze Dry Gauze & Roll Gauze, Roll Gauze Secured with Tape -Aquacel AG 2x2 1 1 1 -Mepilex Border 1 #7- L TORRES -Ulcer Cleansing Rinsed/ Rinsed/ Rinsed/ Irrigated with Irrigated with Irrigated with Saline Saline Saline -Foul Odor after Cleansing No No -Primary Dressing Applied Aquacel AG 2x2 Aquacel AG 2x2, Aquacel AG 2x2 Mepilex Border -Primary Dressing Covered/Secured with Dry Gauze & Dry Gauze Dry Gauze Roll Gauze, Secured with Tape -Aquacel AG 2x2 1 0 0 -Mepilex Border 1 Right -Compression Wrap Silvestre Wrap LT -Compression Wrap Silvestre Wrap Silvestre Wrap Silvestre Wrap -Tubular Bandage Double Layer -Size of Tubigrip Used Size E -Size E ($) 2 Pain Scale: 0-10 Numeric Is Patient Pain Free? Yes Yes Yes LLE -Description Sharp -Intensity 5 -Duration (hours) Acute -Pain Behavior No Change in Behavior -Alleviating Factors/Interventions Inactivity/ Resting,Patient denies need for intervention WC - Visit Discharge Discharge Condition Stable Stable Stable Ambulatory Status Ambulatory Ambulatory Ambulatory Transportation Private Auto Private Auto Private Auto Medication Reconcilliation completed & No Yes Yes provided to patient/care provider Clinical Summary of Care Provided Yes Yes Additional Wound Wound debrided: medial ulcer cluster Laterality: Left Type of Debridement: Excisional debridement Anesthesia Used: 5% Lidocaine Gel Depth: Down to and including healthy tissue and in the subcutaneous layer Percentage of wound debrided: 100 Instrument Used: 3mm curette Tissue Removed: Devitalized tissue and slough Severity: Fat Layer Exposed Amount of bleeding with debridement: Mild Bleeding Controlled with: Compression and gauze Patient tolerated procedure: Patient tolerated procedure well Charges/Coding Procedures Integumentary [id number]: [id number] Joie subq tissue 20 sq cm/< Assessment/Plan Assessment/Plan (1) Chronic ulcer of left leg with fat layer exposed: CODE(S): L97.922 - Non-pressure chronic ulcer of unspecified part of left lower leg with fat layer exposed (2) Edema of both lower extremities: CODE(S): R60.0 - Localized edema (3) Venous insufficiency (chronic) (peripheral): CODE(S): I87.2 - Venous insufficiency (chronic) (peripheral) (4) Diabetes mellitus type 2, uncontrolled, with complications: CODE(S): E11.8 - Type 2 diabetes mellitus with unspecified complications; E11.65 - Type 2 diabetes mellitus with hyperglycemia (5) Nausea & vomiting: CODE(S): R11.2 - Nausea with vomiting, unspecified PLAN: Plan Patient was evaluated at the wound healing center today. Wound care will be moistened Aquacel-Ag covered with gauze topped with gauze or Mead SAP dressing daily after washing with soap and water. She no longer has home health, so she states she can change her dressing daily. Hopefully this will help with her wound healing. Compression - Double SILVESTRE wrap. Ordered Circaid stocking for compression. Her insurance will not cover them. She is not physically able to get 30-40 mmHg compression stockings on her self. She has purchased compression stockings with 8-15 mmHg. Will have her wear them both on her left leg so she is getting 15-30 mmHg. Instructed her how to place them. She states they are too short and she would like to get a new pair of stockings but cannot afford them at this time. Discussed with her that if she does not consistently wear compression, she will continue to have edema issue which can lead to skin breakdown. She verbalizes understanding. Instructed her that she may take her compression off at bedtime when she is in her bed and then place it back on first thing in the morning. Encouraged diet low in carbohydrates and high in protein. Venous study from 02/10/22 showed Left small saphenous vein was patent and incompetent. The rest of the study was normal. Arterial study from 02/10/22 showed Right MARILU 1.06 and Left MARILU 1.07. Waveforms were Triphasic bilaterally. No signs of arterial disease. Wound culture from 03/08/23 positive for MSSA. She was started on Doxycycline due to her PCN allergy. Wound culture obtained 04/26/23 which was positive for Staphylococcus aureus that was resistant to Doxycycline and Bactrim, she is allergic to PCN and cephalosporins and she is on several medications that interact with Linezolid, therefore insurance approval was obtained to start her on a new medication Nuzyra which she has completed. Follow up one week.
[2023-06-14 08:55] VITALS: BP 123/78; PULSE 80; RESP 20; TEMP 36; BMI 49.7
--- NOTE | 2023-06-14 09:50 | PCM.WC.PN ---
History of Present Illness Date of Service: 06/14/23 Chief Complaint: Left anterior leg ulcers History of Wound: 57-year-old female who originally had a traumatic hematoma in 2012 to her left anterior leg and had an operative debridement and eventually had skin graft placement. She has been seen periodically at the wound center for chronic ulcers to her legs over the years. She has most recently been seeing Dr. Chang for her wound care. Her most significant issue at this time is her edema/lymphedema. When her edema becomes severe, she develops ulcers on her legs. She has a history of T2D, COPD, chronic venous insufficiency, cellulitis, chest pain, left ventricular aneurysm, HTN, Bipolar, ADHD, ABRAM, chronic pain syndrome, GERD. Wound culture from 03/08/23 positive for Staphylococcus aureus and she was started on Doxycycline. Wound culture obtained 04/26/23 which was positive for Staphylococcus aureus that was resistant to Doxycycline and Bactrim, she is allergic to PCN and cephalosporins and she is on several medications that interact with Linezolid, therefore insurance approval was obtained to start her on a new medication Nuzyra which she started 05/02/23. She currently denies fever, chills. Progress of Wound: Left anterior leg ulcer is stable in size and left medial leg ulcer is healed today. She states that home health has discharged her and she is now able to do her dressing changes. Objective Data Objective Data Vital Signs: Vital Signs Temp Pulse Resp BP O2 Del Method 96.8 F L 80 20 H 123/78 H Room Air 06/14/23 08:55 06/14/23 08:55 06/14/23 08:55 06/14/23 08:55 05/31/23 09:15 Oxygen Delivery Method Room Air Weight: 299 lb Body Mass Index (BMI) 49.7 Charges/Coding Procedures Integumentary 111xxx-113xx: [id number] Joie subq tissue 20 sq cm/< Debridement Note Debridement Note Wound debrided: Anterior leg proximal ulcer cluster Laterality: Left Wound Grade/Stage: Stage II Type of Debridement: Excisional debridement Anesthesia Used: 4% Lidocaine Solution Depth: Down to and including healthy tissue and in the subcutaneous layer Percentage of wound debrided: 100 Instrument Used: 5mm curette Tissue Removed: Devitalized tissue and slough Severity: Limited To Skin Breakdown Amount of bleeding with debridement: Mild Bleeding Controlled with: Pressure and Compression and gauze Patient tolerated procedure: Patient tolerated procedure well Post-Debridement Measurements and Additional Note: Post-Debridement Measurements/Treatment WC - Nurse 1 - General Ulcer Assessment Start: 05/24/23 09:14 Freq: Status: Active Protocol: PERRY Activity Type Activity Date Activity User E-sign Co-sign Detail Recorded Client Recorded Date Recorded By Document 05/24/23 09:14 KW [id number] 05/24/23 09:27 KW Document 05/31/23 09:15 BMF [id number] 05/31/23 09:23 BMF Document 06/07/23 09:02 PL [id number] 06/07/23 09:11 PL Document 06/14/23 08:55 DL [id number] 06/14/23 09:01 DL 05/24/23 05/31/23 06/07/23 09:14 09:15 09:02 WC - Today's Visit Information Type of service Follow-up Visit Follow-up Visit Follow-up Visit (Physician/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 ROLLING 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 (Physician/COIN ROLLING 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 (Physician/COIN ROLLING 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 ) ) ) Arrival Mode Ambulatory Ambulatory Ambulatory Transfer Assistance None None Patient Identification Verified (Name & Yes Yes Yes ) Patient Requires Transmission-Based No No Precautions Safety Precautions NA NA Finger Stick Blood Sugar(mg/dl) (if 141 indicated): Blood Sugar Stated by Patient Height and Weight Body Mass Index (BMI) 49.7 49.7 49.7 BMI Classification Obese Obese Obese Vital Signs Temperature (97.8 F-99.1 F) 96.5 F L 97.8 F Temperature Source Temporal Temporal Pulse Rate (60-100) 75 87 80 Pulse Location Monitor Monitor Respiratory Rate (12-18) 16 18 18 Respiratory rate source Observation Observation Oxygen Delivery Method Room Air Room Air Blood Pressure (90/60-120/80) 133/82 H 116/73 125/78 H Blood Pressure Mean (mm Hg) 99 87 93 Source Monitor Monitor Position Semi-Fowlers Sitting Blood Pressure Location Left Forearm Left Forearm History Since Last Visit- (Skip if this is Patient's initial visit) Have you changed medications since your No No No last visit? Any new allergies or adverse reactions No No No Had a fall/change in ADL's that may No No No increase risk of falls Signs or symptoms of abuse and/or No No No neglect since last visit Have you been in the hospital since your No No No last visit? Has dressing in place as prescribed Yes Yes Yes Has compression in place as prescribed Yes Yes Yes Has offloadiing in place as prescribed No N/A N/A Experienced any changes in pain level or No No No management Left Footwear Regular Shoe Regular Shoe Right Footwear Regular Shoe Regular Shoe Pain Scale: 0-10 Numeric Is Patient Pain Free? Yes Yes Yes 06/14/23 08:55 WC - Today's Visit Information Type of service Follow-up Visit (Physician/COIN ROLLING 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 ) Arrival Mode Ambulatory Transfer Assistance None Patient Identification Verified (Name & Yes ) Patient Requires Transmission-Based No Precautions Safety Precautions Finger Stick Blood Sugar(mg/dl) (if 161 indicated): Blood Sugar Stated by Patient Height and Weight Body Mass Index (BMI) 49.7 BMI Classification Obese Vital Signs Temperature (97.8 F-99.1 F) 96.8 F L Temperature Source Temporal Pulse Rate (60-100) 80 Pulse Location Monitor Respiratory Rate (12-18) 20 H Respiratory rate source Observation Oxygen Delivery Method Blood Pressure (90/60-120/80) 123/78 H Blood Pressure Mean (mm Hg) 93 Source Monitor Position Blood Pressure Location History Since Last Visit- (Skip if this is Patient's initial visit) Have you changed medications since your No last visit? Any new allergies or adverse reactions No Had a fall/change in ADL's that may No increase risk of falls Signs or symptoms of abuse and/or No neglect since last visit Have you been in the hospital since your No last visit? Has dressing in place as prescribed Yes Has compression in place as prescribed Yes Has offloadiing in place as prescribed N/A Experienced any changes in pain level or No management Left Footwear Right Footwear Pain Scale: 0-10 Numeric Is Patient Pain Free? Yes - Nurse 1 - General Ulcer Measurement Start: 05/24/23 09:14 Freq: Status: Active Protocol: Activity Type Activity Date Activity User E-sign Co-sign Detail Recorded Client Recorded Date Recorded By Document 05/24/23 09:14 KW [id number] 05/24/23 09:27 KW Document 05/31/23 09:15 [facility] [id number] 05/31/23 09:23 BM Document 06/07/23 09:02 PL [id number] 06/07/23 09:11 PL Document 06/14/23 08:55 DL [id number] 06/14/23 09:01 DL 05/24/23 05/31/23 06/07/23 09:14 09:15 09:02 Wound Center Nurse 1 #10 Med LE cluster -Combined with other wound No No -Current Size (cm) - Length 0.5 0.3 0.1 -Current Size (cm) - Width 1.0 0.5 0.1 -Current Size (cm) - Depth 0.1 0.2 0.1 -Total Square Cm 0.50 0.15 0.01 -Photo Taken No No -Epithelialization Small 1-33% Small 1-33% Medium 34-66% -Tunneling No No No -Undermining/Tunneling No No No -Circular Undermining No No No -Classification - Thickness Partial Thickness -Exudate Amt Small Medium Small -Exudate Type Serosanguineous Serosanguineous Serosanguineous -Wound Margin Distinct, Distinct, Outline Outline Attached Attached -Granulation Amt Small (1-33%) Medium (34-66%) Medium (34-66%) -Granulation Quality Red Red Pale -Slough/Fibrin Yes Yes -Necrosis Amt Small (1-33%) Medium (34-66%) Medium (34-66%) -Necrotic Tissue Type Adherent Slough Adherent Slough -Structure Exposed -Texture (Verónica-wound Skin Appearance) Assessed Assessed -Moisture (Verónica-wound Skin Appearance) Assessed Assessed,Dry/ Scaly -Color (Verónica-wound Skin Appearance) Assessed, Assessed Erythema -Temperature (Verónica-wound Skin No Abnormality No Abnormality Appearance) (Pt Warm) (Pt Warm) -Tenderness on Palpation (Verónica-wound No Skin Appearance) -Ulcer Cleansing Soap and Water Rinsed/ Irrigated with Saline -Foul Odor after Cleansing No -Anesthetic Used 5% Lidocaine 5% Lidocaine Gel Gel #7- L TORRES -Combined with other wound No No -Current Size (cm) - Length 2.5 2.1 1.5 -Current Size (cm) - Width 1.5 1.7 1.0 -Current Size (cm) - Depth 0.2 0.3 0.1 -Total Square Cm 3.75 3.57 1.50 -Photo Taken No No -Epithelialization Medium 34-66% None Present Medium 34-66% -Tunneling No No -Undermining/Tunneling No No -Circular Undermining No No -Exudate Amt Small Medium -Exudate Type Serosanguineous Serosanguineous -Wound Margin Distinct, Distinct, Outline Outline Attached Attached -Granulation Amt Large (67-100%) Large (67-100%) -Granulation Quality Red Red -Slough/Fibrin Yes Yes -Necrosis Amt Small (1-33%) Small (1-33%) -Necrotic Tissue Type Adherent Slough Adherent Slough -Structure Exposed -Texture (Verónica-wound Skin Appearance) Assessed Assessed, Scarring -Moisture (Verónica-wound Skin Appearance) Assessed, Assessed,Dry/ Weeping Scaly -Color (Verónica-wound Skin Appearance) Assessed, Assessed Erythema -Temperature (Verónica-wound Skin No Abnormality No Abnormality Appearance) (Pt Warm) (Pt Warm) -Tenderness on Palpation (Verónica-wound No Skin Appearance) -Ulcer Cleansing Soap and Water Rinsed/ Irrigated with Saline -Foul Odor after Cleansing No -Anesthetic Used 5% Lidocaine 5% Lidocaine Gel Gel Lower Limb Edema Present NA Yes Left Calf (cm) 52.3 Left Ankle (cm) 06/14/23 08:55 Wound Center Nurse 1 #10 Med LE cluster -Combined with other wound -Current Size (cm) - Length 0.1 -Current Size (cm) - Width 0.1 -Current Size (cm) - Depth 0.1 -Total Square Cm 0.01 -Photo Taken -Epithelialization -Tunneling -Undermining/Tunneling -Circular Undermining -Classification - Thickness -Exudate Amt None Present -Exudate Type -Wound Margin Flat & Intact -Granulation Amt Large (67-100%) -Granulation Quality [place] -Slough/Fibrin -Necrosis Amt None Present (0 %) -Necrotic Tissue Type -Structure Exposed N/A -Texture (Verónica-wound Skin Appearance) Scarring -Moisture (Verónica-wound Skin Appearance) No Abnormality -Color (Verónica-wound Skin Appearance) Hemosiderin Staining -Temperature ([place]-wound Skin No Abnormality Appearance) (Pt Warm) -Tenderness on Palpation (Verónica-wound Skin Appearance) -Ulcer Cleansing Rinsed/ Irrigated with Saline -Foul Odor after Cleansing No -Anesthetic Used 5% Lidocaine Gel #7- L TORRES -Combined with other wound -Current Size (cm) - Length 1.7 -Current Size (cm) - Width 1.5 -Current Size (cm) - Depth 0.2 -Total Square Cm 2.55 -Photo Taken -Epithelialization -Tunneling -Undermining/Tunneling -Circular Undermining -Exudate Amt Small -Exudate Type Serosanguineous -Wound Margin Distinct, Outline Attached -Granulation Amt Medium (34-66%) -Granulation Quality [place],Red -Slough/Fibrin -Necrosis Amt Small (1-33%) -Necrotic Tissue Type Adherent Slough -Structure Exposed N/A -Texture (Verónica-wound Skin Appearance) Scarring -Moisture (Verónica-wound Skin Appearance) No Abnormality -Color (Verónica-wound Skin Appearance) Hemosiderin Staining -Temperature (Verónica-wound Skin No Abnormality Appearance) (Pt Warm) -Tenderness on Palpation (Verónica-wound No Skin Appearance) -Ulcer Cleansing Rinsed/ Irrigated with Saline -Foul Odor after Cleansing No -Anesthetic Used 5% Lidocaine Gel Lower Limb Edema Present Left Calf (cm) 47 Left Ankle (cm) 23.3 WC - Nurse 2 - General Ulcer CM Notes Start: 05/24/23 09:14 Freq: Status: Active Protocol: Activity Type Activity Date Activity User E-sign Co-sign Detail Recorded Client Recorded Date Recorded By Document 05/24/23 09:41 [id number] 05/24/23 09:44 Document 05/31/23 09:29 [id number] 05/31/23 09:34 Document 06/07/23 09:29 [id number] 06/07/23 09:32 05/24/23 05/31/23 06/07/23 09:41 09:29 09:29 Wound Center Nurse 2 #10 Med LE cluster -Time 09:42 09:30 09:29 -Correct Patient Yes Yes Yes -Correct Side, Site, Position Yes Yes Yes -Correct Procedure Yes Yes Yes -Procedure Performed Yes Yes Yes -Type of Procedure Debridement Debridement Debridement -Clinical Debridement Subcutaneous Subcutaneous Subcutaneous -Tissue Removed Subcutaneous Subcutaneous Subcutaneous -Post Debridement (cm) - Length 0.7 0.5 0.4 -Post Debridement (cm) - Width 1.7 0.8 0.7 -Post Debridement (cm) - Depth 0.2 0.2 0.1 -Total Square (Post) (cm) 1.19 0.40 0.28 -Area of Debridement (cm) - Length 0.7 0.5 0.4 -Area of Debridement (cm) - Width 1.7 0.8 0.7 -Total Square (Area) (cm) 1.19 0.40 0.28 -Tunneling No No No -Undermining/Tunneling No No No -Circular Undermining No No No -Wound/Ulcer Outcome Not Healed Not Healed Not Healed -Ulcer Cleansing Rinsed/ Rinsed/ Rinsed/ Irrigated with Irrigated with Irrigated with Saline Saline Saline -Foul Odor after Cleansing No No No -Bioengineered Tissue No No No -Bleeding Controlled with Pressure Pressure Pressure -Treatment Response Procedure Procedure Procedure Tolerated Well Tolerated Well Tolerated Well -Offloading No No -Debridement - Subq, 1st 20sq cm No No No #7- L TORRES -Time 09:42 09:30 09:29 -Correct Patient Yes Yes Yes -Correct Side, Site, Position Yes Yes Yes -Correct Procedure Yes Yes Yes -Procedure Performed Yes Yes Yes -Type of Procedure Debridement Debridement Debridement -Clinical Debridement Subcutaneous Subcutaneous Subcutaneous -Tissue Removed Subcutaneous Subcutaneous Subcutaneous -Post Debridement (cm) - Length 2.8 2.3 2.5 -Post Debridement (cm) - Width 2.8 1.7 1.7 -Post Debridement (cm) - Depth 0.2 0.2 0.2 -Total Square (Post) (cm) 7.84 3.91 4.25 -Area of Debridement (cm) - Length 2.8 2.3 2.5 -Area of Debridement (cm) - Width 2.8 1.7 1.7 -Total Square (Area) (cm) 7.84 3.91 4.25 -Tunneling No No No -Undermining/Tunneling No No No -Circular Undermining No No No -Wound/Ulcer Outcome Not Healed Not Healed Not Healed -Ulcer Cleansing Rinsed/ Rinsed/ Rinsed/ Irrigated with Irrigated with Irrigated with Saline Saline Saline -Foul Odor after Cleansing No No No -Bioengineered Tissue No No No -Bleeding Controlled with Pressure Pressure Pressure -Treatment Response Procedure Procedure Procedure Tolerated Well Tolerated Well Tolerated Well -Offloading No No No -Debridement - Subq, 1st 20sq cm Yes Yes Yes Pain Scale: 0-10 Numeric Is Patient Pain Free? Yes Yes Yes WC - Nurse 3 - General Ulcer D/C NN Start: 05/24/23 09:14 Freq: Status: Active Protocol: Activity Type Activity Date Activity User E-sign Co-sign Detail Recorded Client Recorded Date Recorded By Document 05/24/23 09:50 KW [id number] 05/24/23 09:52 KW Document 05/31/23 09:34 JF [id number] 05/31/23 09:35 JF Document 06/07/23 09:33 JF [id number] 06/07/23 09:33 JF Document 06/14/23 09:31 DL [id number] 06/14/23 09:32 DL 05/24/23 05/31/23 06/07/23 09:50 09:34 09:33 Wound Care Center Nurse 3 #10 Med LE cluster -Ulcer Cleansing Rinsed/ Rinsed/ Rinsed/ Irrigated with Irrigated with Irrigated with Saline Saline Saline -Foul Odor after Cleansing No No -Primary Dressing Applied Aquacel AG 2x2 Aquacel AG 2x2, Aquacel AG 2x2 Mepilex Border -Primary Dressing Covered/Secured with Dry Gauze & Dry Gauze Dry Gauze & Roll Gauze, Roll Gauze Secured with Tape -Aquacel AG 2x2 1 1 1 -Aquacel AG 4x4 -Mepilex Border 1 #7- L TORRES -Ulcer Cleansing Rinsed/ Rinsed/ Rinsed/ Irrigated with Irrigated with Irrigated with Saline Saline Saline -Foul Odor after Cleansing No No -Primary Dressing Applied Aquacel AG 2x2 Aquacel AG 2x2, Aquacel AG 2x2 Mepilex Border -Primary Dressing Covered/Secured with Dry Gauze & Dry Gauze Dry Gauze Roll Gauze, Secured with Tape -Aquacel AG 2x2 1 0 0 -Aquacel AG 4x4 -Mepilex Border 1 Right -Compression Wrap Silvestre Wrap LT -Compression Wrap Silvestre Wrap Silvestre Wrap Silvestre Wrap -Tubular Bandage Double Layer -Size of Tubigrip Used Size E -Size E ($) 2 Treatment Response Pain Scale: 0-10 Numeric Is Patient Pain Free? Yes Yes Yes LLE -Description Sharp -Intensity 5 -Duration (hours) Acute -Pain Behavior No Change in Behavior -Alleviating Factors/Interventions Inactivity/ Resting,Patient denies need for intervention WC - Visit Discharge Discharge Condition Stable Stable Stable Ambulatory Status Ambulatory Ambulatory Ambulatory Transportation Private Auto Private Auto Private Auto Medication Reconcilliation completed & No Yes Yes provided to patient/care provider Clinical Summary of Care Provided Yes Yes 06/14/23 09:31 Wound Care Center Nurse 3 #10 Med LE cluster -Ulcer Cleansing Rinsed/ Irrigated with Saline -Foul Odor after Cleansing No -Primary Dressing Applied Aquacel AG 4x4 -Primary Dressing Covered/Secured with Dry Gauze & Roll Gauze, Secured with Tape -Aquacel AG 2x2 -Aquacel AG 4x4 1 -Mepilex Border #7- L TORRES -Ulcer Cleansing Rinsed/ Irrigated with Saline -Foul Odor after Cleansing No -Primary Dressing Applied Aquacel AG 4x4 -Primary Dressing Covered/Secured with Dry Gauze & Roll Gauze, Secured with Tape -Aquacel AG 2x2 -Aquacel AG 4x4 0 -Mepilex Border Right -Compression Wrap LT -Compression Wrap Silvestre Wrap -Tubular Bandage -Size of Tubigrip Used -Size E ($) Treatment Response Procedure Tolerated Well Pain Scale: 0-10 Numeric Is Patient Pain Free? Yes LLE -Description -Intensity -Duration (hours) -Pain Behavior -Alleviating Factors/Interventions WC - Visit Discharge Discharge Condition Stable Ambulatory Status Ambulatory Transportation Private Auto Medication Reconcilliation completed & provided to patient/care provider Clinical Summary of Care Provided Assessment/Plan Assessment/Plan (1) Chronic ulcer of left leg with fat layer exposed: CODE(S): L97.922 - Non-pressure chronic ulcer of unspecified part of left lower leg with fat layer exposed (2) Edema of both lower extremities: CODE(S): R60.0 - Localized edema (3) Venous insufficiency (chronic) (peripheral): CODE(S): I87.2 - Venous insufficiency (chronic) (peripheral) (4) Diabetes mellitus type 2, uncontrolled, with complications: CODE(S): E11.8 - Type 2 diabetes mellitus with unspecified complications; E11.65 - Type 2 diabetes mellitus with hyperglycemia (5) Nausea & vomiting: CODE(S): R11.2 - Nausea with vomiting, unspecified PLAN: Plan Patient was evaluated at the wound healing center today. The left medial leg ulcer is healed today. Wound care will be moistened Aquacel-Ag covered with gauze topped or [place] SAP dressing daily after washing with soap and water. Compression - Double SILVESTRE wrap. Ordered Circaid stocking for compression. Her insurance will not cover them. She is not physically able to get 30-40 mmHg compression stockings on her self. She has purchased compression stockings with 8-15 mmHg. Will have her wear them both on her left leg so she is getting 15-30 mmHg. Instructed her how to place them. She states they are too short and she would like to get a new pair of stockings but cannot afford them at this time. Discussed with her that if she does not consistently wear compression, she will continue to have edema issue which can lead to skin breakdown. She verbalizes understanding. Instructed her that she may take her compression off at bedtime when she is in her bed and then place it back on first thing in the morning. Encouraged diet low in carbohydrates and high in protein. Venous study from 02/10/22 showed Left small saphenous vein was patent and incompetent. The rest of the study was normal. Arterial study from 02/10/22 showed Right MARILU 1.06 and Left MARILU 1.07. Waveforms were Triphasic bilaterally. No signs of arterial disease. Wound culture from 03/08/23 positive for MSSA. She was started on Doxycycline due to her PCN allergy. Wound culture obtained 04/26/23 which was positive for Staphylococcus aureus that was resistant to Doxycycline and Bactrim, she is allergic to PCN and cephalosporins and she is on several medications that interact with Linezolid, therefore insurance approval was obtained to start her on a new medication Nuzyra which she has completed. Follow up one week.
== END 2023-06-19 23:59 | disposition home or self-care (01) ==
LOC: WC 09:00
PROVIDERS: PCP Internal Medicine; Visit Provider Nurse Practitioner Family
DX: L97.822 Non-pressure chronic ulcer of other part of left lower leg with fat layer exposed (principal); F25.9 Schizoaffective disorder, unspecified; J44.9 Chronic obstructive pulmonary disease, unspecified; F31.9 Bipolar disorder, unspecified; E11.65 Type 2 diabetes mellitus with hyperglycemia; E11.59 Type 2 diabetes mellitus with other circulatory complications; Z79.4 Long term (current) use of insulin; K21.9 Gastro-esophageal reflux disease without esophagitis; Z79.51 Long term (current) use of inhaled steroids; I89.0 Lymphedema, not elsewhere classified; I10 Essential (primary) hypertension; I87.2 Venous insufficiency (chronic) (peripheral); R60.0 Localized edema; Z82.3 Family history of stroke; G43.909 Migraine, unspecified, not intractable, without status migrainosus; R11.2 Nausea with vomiting, unspecified
CPT/HCPCS: 11042

== ENCOUNTER 2023-07-19 09:30 | Outpatient (RCR) | payer MEDICAID, SELFPAY ==
[2023-06-20 00:15] VITALS: BP 123/78; PULSE 80; RESP 20; TEMP 36; BMI 49.7
[2023-06-21 09:25] VITALS: RESP 22; TEMP 36.8; BMI 49.7
--- NOTE | 2023-06-21 09:58 | PN.PCM_ITS ---
History of Present Illness Date of Service: 06/21/23 Chief Complaint: Left anterior leg ulcers History of Wound: 57-year-old female who originally had a traumatic hematoma in 2011 to her left anterior leg and had an operative debridement and eventually had skin graft placement. She has been seen periodically at the wound center for chronic ulcers to her legs over the years. She has most recently been seeing Dr. Chang for her wound care. Her most significant issue at this time is her edema/lymphedema. When her edema becomes severe, she develops ulcers on her legs. She has a history of T2D, COPD, chronic venous insufficiency, cellulitis, chest pain, left ventricular aneurysm, HTN, Bipolar, ADHD, ABRAM, chronic pain syndrome, GERD. Wound culture from 03/08/23 positive for Staphylococcus aureus and she was started on Doxycycline. Wound culture obtained 04/26/23 which was positive for Staphylococcus aureus that was resistant to Doxycycline and Bactrim, she is allergic to PCN and cephalosporins and she is on several medications that interact with Linezolid, therefore insurance approval was obtained to start her on a new medication Nuzyra which she started 05/02/23. She currently denies fever, chills. Progress of Wound: Left anterior leg ulcer is slightly smaller in size and left medial leg ulcer remains healed today. Objective Data Objective Data Vital Signs: Vital Signs Temp Pulse Resp BP 98.2 F 80 22 H 123/78 H 06/21/23 09:25 06/20/23 00:15 06/21/23 09:25 06/20/23 00:15 Weight: 299 lb Body Mass Index (BMI) 49.7 Charges/Coding Procedures Integumentary 111xxx-113xx: 61957 Joie subq tissue 20 sq cm/< Debridement Note Debridement Note Wound debrided: Anterior leg proximal ulcer cluster Laterality: Left Wound Grade/Stage: Stage II Type of Debridement: Excisional debridement Anesthesia Used: 4% Lidocaine Solution Depth: Down to and including healthy tissue and in the subcutaneous layer Percentage of wound debrided: 100 Instrument Used: 5mm curette Tissue Removed: Devitalized tissue and slough Severity: Limited To Skin Breakdown Amount of bleeding with debridement: Mild Bleeding Controlled with: Pressure and Compression and gauze Patient tolerated procedure: Patient tolerated procedure well Post-Debridement Measurements and Additional Note: Post-Debridement Measurements/Treatment WC - Nurse 1 - General Ulcer Assessment Start: 06/21/23 09:23 Freq: Status: Active Protocol: PERRY Activity Type Activity Date Activity User E-sign Co-sign Detail Recorded Client Recorded Date Recorded By Document 06/21/23 09:25 DL [id number] 06/21/23 09:32 DL 06/21/23 09:25 - Today's Visit Information Type of service Follow-up Visit (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 Any new allergies or adverse reactions No Had a fall/change in ADL's that may No increase risk of falls Signs or symptoms of abuse and/or No neglect since last visit Have you been in the hospital since your No last visit? Has dressing in place as prescribed Yes Has compression in place as prescribed Yes Has offloadiing in place as prescribed N/A Experienced any changes in pain level or No management Left Footwear Regular Shoe Right Footwear Regular Shoe Pain Scale: 0-10 Numeric Is Patient Pain Free? Yes - Nurse 1 - General Ulcer Measurement Start: 06/21/23 09:23 Freq: Status: Active Protocol: Activity Type Activity Date Activity User E-sign Co-sign Detail Recorded Client Recorded Date Recorded By Document 06/21/23 09:25 DL [id number] 06/21/23 09:32 DL 06/21/23 09:25 Wound Center Nurse 1 #7- L TORRES -Combined with other wound No -Current Size (cm) - Length 2.1 -Current Size (cm) - Width 1.4 -Current Size (cm) - Depth 0.2 -Total Square Cm 2.94 -Epithelialization Small 1-33% -Tunneling No -Undermining/Tunneling No -Circular Undermining No -Exudate Amt Medium -Exudate Type Serosanguineous -Wound Margin Distinct, Outline Attached -Granulation Amt Medium (34-66%) -Granulation Quality Red -Slough/Fibrin Yes -Necrosis Amt Medium (34-66%) -Necrotic Tissue Type Adherent Slough -Texture (Verónica-wound Skin Appearance) Assessed, Scarring -Moisture (Verónica-wound Skin Appearance) Assessed -Color (Verónica-wound Skin Appearance) Assessed -Temperature (Verónica-wound Skin No Abnormality Appearance) (Pt Warm) -Tenderness on Palpation (Verónica-wound No Skin Appearance) -Ulcer Cleansing Soap and Water -Foul Odor after Cleansing No -Anesthetic Used 5% Lidocaine Gel Lower Limb Edema Present Yes Left Calf (cm) 50.5 Left Ankle (cm) 22.7 Assessment/Plan Assessment/Plan (1) Chronic ulcer of left leg with fat layer exposed: CODE(S): L97.922 - Non-pressure chronic ulcer of unspecified part of left lower leg with fat layer exposed (2) Edema of both lower extremities: CODE(S): R60.0 - Localized edema (3) Venous insufficiency (chronic) (peripheral): CODE(S): I87.2 - Venous insufficiency (chronic) (peripheral) (4) Diabetes mellitus type 2, uncontrolled, with complications: CODE(S): E11.8 - Type 2 diabetes mellitus with unspecified complications; E11.65 - Type 2 diabetes mellitus with hyperglycemia (5) Nausea & vomiting: CODE(S): R11.2 - Nausea with vomiting, unspecified PLAN: Plan Patient was evaluated at the wound healing center today. The left medial leg ulcer is healed today. Wound care will be moistened Aquacel-Ag covered with gauze or Sturdivant SAP dressing daily after washing with soap and water. Compression - Double MARYCARMEN wrap. Ordered Circaid stocking for compression. Her insurance will not cover them. She is not physically able to get 30-40 mmHg compression stockings on her self. She has purchased compression stockings with 8-15 mmHg. Will have her wear them both on her left leg so she is getting 15-30 mmHg. Instructed her how to place them. She states they are too short and she would like to get a new pair of stockings but cannot afford them at this time. Discussed with her that if she does not consistently wear compression, she will continue to have edema issue which can lead to skin breakdown. She verbalizes understanding. Instructed her that she may take her compression off at bedtime when she is in her bed and then place it back on first thing in the morning. Encouraged diet low in carbohydrates and high in protein. Venous study from 02/10/22 showed Left small saphenous vein was patent and incompetent. The rest of the study was normal. Arterial study from 02/10/22 showed Right MARILU 1.06 and Left MARILU 1.07. Waveforms were Triphasic bilaterally. No signs of arterial disease. Wound culture from 03/08/23 positive for MSSA. She was started on Doxycycline due to her PCN allergy. Wound culture obtained 04/26/23 which was positive for Staphylococcus aureus that was resistant to Doxycycline and Bactrim, she is allergic to PCN and cephalosporins and she is on several medications that interact with Linezolid, therefore insurance approval was obtained to start her on a new medication Nuzyra which she has completed. Follow up one week.
[2023-06-28 09:15] VITALS: BP 104/58; PULSE 86; RESP 18; TEMP 35.9; BMI 49.7
--- NOTE | 2023-06-28 10:19 | PCM.WC.PN ---
History of Present Illness Date of Service: 06/28/23 Chief Complaint: Left anterior leg ulcers History of Wound: 57-year-old female who originally had a traumatic hematoma in 2012 to her left anterior leg and had an operative debridement and eventually had skin graft placement. She has been seen periodically at the wound center for chronic ulcers to her legs over the years. She has most recently been seeing Dr. Chang for her wound care. Her most significant issue at this time is her edema/lymphedema. When her edema becomes severe, she develops ulcers on her legs. She has a history of T2D, COPD, chronic venous insufficiency, cellulitis, chest pain, left ventricular aneurysm, HTN, Bipolar, ADHD, ABRAM, chronic pain syndrome, GERD. Wound culture from 03/08/23 positive for Staphylococcus aureus and she was started on Doxycycline. Wound culture obtained 04/26/23 which was positive for Staphylococcus aureus that was resistant to Doxycycline and Bactrim, she is allergic to PCN and cephalosporins and she is on several medications that interact with Linezolid, therefore insurance approval was obtained to start her on a new medication Nuzyra which she started 05/02/23. She currently denies fever, chills. Progress of Wound: Left anterior leg ulcer is larger this week. She states that she has not had much drainage. Objective Data Objective Data Vital Signs: Vital Signs Temp Pulse Resp BP 96.7 F L 86 18 104/58 L 06/28/23 09:15 06/28/23 09:15 06/28/23 09:15 06/28/23 09:15 Weight: 299 lb Body Mass Index (BMI) 49.7 Charges/Coding Procedures Integumentary 111xxx-113xx: 45894 Joie subq tissue 20 sq cm/< Debridement Note Debridement Note Wound debrided: Anterior leg proximal ulcer cluster Laterality: Left Wound Grade/Stage: Stage II Type of Debridement: Excisional debridement Anesthesia Used: 4% Lidocaine Solution Depth: Down to and including healthy tissue and in the subcutaneous layer Percentage of wound debrided: 100 Instrument Used: 5mm curette Tissue Removed: Devitalized tissue and slough Severity: Limited To Skin Breakdown Amount of bleeding with debridement: Mild Bleeding Controlled with: Pressure and Compression and gauze Patient tolerated procedure: Patient tolerated procedure well Post-Debridement Measurements and Additional Note: Post-Debridement Measurements/Treatment WC - Nurse 1 - General Ulcer Assessment Start: 06/21/23 09:23 Freq: Status: Active Protocol: NILO.LOWEXT Activity Type Activity Date Activity User E-sign Co-sign Detail Recorded Client Recorded Date Recorded By Document 06/21/23 09:25 DL [id number] 06/21/23 09:32 DL Document 06/28/23 09:15 JF [id number] 06/28/23 09:18 JF Edit Result 06/28/23 09:15 JF (1) [id number] 06/28/23 09:23 JF (1) Temperature (97.8 F-99.1 F) => 96.7 F L Temperature Source => Temporal 06/21/23 06/28/23 09:25 09:15 WC - Today's Visit Information Type of service Follow-up Visit Follow-up Visit (Physician/INS[employer] (Physician/INS[employer]OR [employer]S ) ) Arrival Mode Ambulatory Ambulatory Transfer Assistance None Patient Identification Verified (Name & Yes Yes ) Patient Requires Transmission-Based No No Precautions Finger Stick Blood Sugar(mg/dl) (if 152 indicated): Blood Sugar Stated by Patient Height and Weight Body Mass Index (BMI) 49.7 49.7 BMI Classification Obese Obese Vital Signs Temperature (97.8 F-99.1 F) 98.2 F 96.7 F L Temperature Source Temporal Temporal Pulse Rate (60-100) 86 Pulse Location Monitor Respiratory Rate (12-18) 22 H 18 Respiratory rate source Observation Observation Blood Pressure (90/60-120/80) 104/58 L Blood Pressure Mean (mm Hg) 73 Source Monitor Position Sitting Blood Pressure Location Left Forearm History Since Last Visit- (Skip if this is Patient's initial visit) Have you changed medications since your No No last visit? Any new allergies or adverse reactions No No Had a fall/change in ADL's that may No No increase risk of falls Signs or symptoms of abuse and/or No No neglect since last visit Have you been in the hospital since your No No last visit? Has dressing in place as prescribed Yes Yes Has compression in place as prescribed Yes Yes Has offloadiing in place as prescribed N/A N/A Experienced any changes in pain level or No No management Left Footwear Regular Shoe Regular Shoe Right Footwear Regular Shoe Regular Shoe Pain Scale: 0-10 Numeric Is Patient Pain Free? Yes Yes - Nurse 1 - General Ulcer Measurement Start: 06/21/23 09:23 Freq: Status: Active Protocol: Activity Type Activity Date Activity User E-sign Co-sign Detail Recorded Client Recorded Date Recorded By Document 06/21/23 09:25 DL [id number] 06/21/23 09:32 DL Document 06/28/23 09:15 CARLOS [id number] 06/28/23 09:18 JF 06/21/23 06/28/23 09:25 09:15 Wound Center Nurse 1 #7- L TORRES -Combined with other wound No No -Current Size (cm) - Length 2.1 2.3 -Current Size (cm) - Width 1.4 1.4 -Current Size (cm) - Depth 0.2 0.2 -Total Square Cm 2.94 3.22 -Photo Taken No -Epithelialization Small 1-33% None Present -Tunneling No No -Undermining/Tunneling No No -Circular Undermining No No -Exudate Amt Medium Medium -Exudate Type Serosanguineous Serosanguineous -Wound Margin Distinct, Flat & Intact Outline Attached -Granulation Amt Medium (34-66%) Medium (34-66%) -Granulation Quality Red Red -Slough/Fibrin Yes Yes -Necrosis Amt Medium (34-66%) Small (1-33%) -Necrotic Tissue Type Adherent Slough Adherent Slough -Structure Exposed N/A -Texture (Verónica-wound Skin Appearance) Assessed, Assessed, Scarring Localized Edema -Moisture (Verónica-wound Skin Appearance) Assessed Assessed,Dry/ Scaly -Color (Verónica-wound Skin Appearance) Assessed Assessed -Temperature (Verónica-wound Skin No Abnormality No Abnormality Appearance) (Pt Warm) (Pt Warm) -Tenderness on Palpation (Verónica-wound No No Skin Appearance) -Ulcer Cleansing Soap and Water Wound Cleanser -Foul Odor after Cleansing No No -Anesthetic Used 5% Lidocaine 5% Lidocaine Gel Gel Lower Limb Edema Present Yes Yes Left Calf (cm) 50.5 49.3 Left Ankle (cm) 22.7 23.4 WC - Nurse 2 - General Ulcer CM Notes Start: 06/21/23 09:23 Freq: Status: Active Protocol: Activity Type Activity Date Activity User E-sign Co-sign Detail Recorded Client Recorded Date Recorded By Document 06/21/23 11:35 PL [id number] 06/21/23 11:36 PL 06/21/23 11:35 Wound Center Nurse 2 #7- L TORRES -Time 09:48 -Correct Patient Yes -Correct Side, Site, Position Yes -Correct Procedure Yes -Procedure Performed Yes -Type of Procedure Debridement -Clinical Debridement Subcutaneous -Tissue Removed Subcutaneous -Post Debridement (cm) - Length 2.3 -Post Debridement (cm) - Width 1.5 -Post Debridement (cm) - Depth 0.1 -Total Square (Post) (cm) 3.45 -Area of Debridement (cm) - Length 2.3 -Area of Debridement (cm) - Width 1.5 -Total Square (Area) (cm) 3.45 -Tunneling No -Undermining/Tunneling No -Circular Undermining No -Wound/Ulcer Outcome Not Healed -Ulcer Cleansing Rinsed/ Irrigated with Saline -Foul Odor after Cleansing No -Bioengineered Tissue No -Bleeding Controlled with Pressure -Treatment Response Procedure Tolerated Well -Debridement - Subq, 1st 20sq cm Yes Pain Scale: 0-10 Numeric Is Patient Pain Free? Yes - Nurse 3 - General Ulcer D/C NN Start: 06/21/23 09:23 Freq: Status: Active Protocol: Activity Type Activity Date Activity User E-sign Co-sign Detail Recorded Client Recorded Date Recorded By Document 06/21/23 10:03 DL [id number] 06/21/23 10:04 DL Document 06/28/23 09:40 PL [id number] 06/28/23 09:41 PL 06/21/23 06/28/23 10:03 09:40 Wound Care Center Nurse 3 #7- L TORRES -Ulcer Cleansing Rinsed/ Rinsed/ Irrigated with Irrigated with Saline Saline -Foul Odor after Cleansing No -Primary Dressing Applied Aquacel AG 4x4 Promogran Latisha Matter -Primary Dressing Covered/Secured with Dry Gauze, Dry Gauze, Secured with Secured with Tape Tape -Other Covering silvestre -Aquacel AG 4x4 1 -Promogran Latisha Matter 1 Left -Other Silvestre wrap Treatment Response Procedure Tolerated Well Pain Scale: 0-10 Numeric Is Patient Pain Free? Yes Yes WC - Visit Discharge Discharge Condition Stable Stable Ambulatory Status Ambulatory Ambulatory Transportation Private Auto Private Auto Assessment/Plan Assessment/Plan (1) Chronic ulcer of left leg with fat layer exposed: CODE(S): L97.922 - Non-pressure chronic ulcer of unspecified part of left lower leg with fat layer exposed (2) Edema of both lower extremities: CODE(S): R60.0 - Localized edema (3) Venous insufficiency (chronic) (peripheral): CODE(S): I87.2 - Venous insufficiency (chronic) (peripheral) (4) Diabetes mellitus type 2, uncontrolled, with complications: CODE(S): E11.8 - Type 2 diabetes mellitus with unspecified complications; E11.65 - Type 2 diabetes mellitus with hyperglycemia (5) Nausea & vomiting: CODE(S): R11.2 - Nausea with vomiting, unspecified PLAN: Plan Patient was evaluated at the wound healing center today. Wound care to the left anterior ulcer will be moistened Latisha covered with gauze daily after washing with soap and water. Compression - Double SILVESTRE wrap. Ordered Circaid stocking for compression. Her insurance will not cover them. She is not physically able to get 30-40 mmHg compression stockings on her self. She has purchased compression stockings with 8-15 mmHg. Will have her wear them both on her left leg so she is getting 15-30 mmHg. Instructed her how to place them. She states they are too short and she would like to get a new pair of stockings but cannot afford them at this time. Discussed with her that if she does not consistently wear compression, she will continue to have edema issue which can lead to skin breakdown. She verbalizes understanding. Instructed her that she may take her compression off at bedtime when she is in her bed and then place it back on first thing in the morning. Encouraged diet low in carbohydrates and high in protein. Venous study from 02/10/22 showed Left small saphenous vein was patent and incompetent. The rest of the study was normal. Arterial study from 02/10/22 showed Right MARILU 1.06 and Left MARILU 1.07. Waveforms were Triphasic bilaterally. No signs of arterial disease. Wound culture from 03/08/23 positive for MSSA. She was started on Doxycycline due to her PCN allergy. Wound culture obtained 04/26/23 which was positive for Staphylococcus aureus that was resistant to Doxycycline and Bactrim, she is allergic to PCN and cephalosporins and she is on several medications that interact with Linezolid, therefore insurance approval was obtained to start her on a new medication Nuzyra which she has completed. She states that she sleeps in a chair because her bed is so uncomfortable. Encouraged her to try to lay flat for 20 minutes at a time several times a day to help with her edema. Follow up one week.
--- NOTE | 2023-06-30 10:38 | WC ---
Message left from Oni from [facility] stating that patient fell on of this week and when the nurse went to see her today, she has a small abrasion to her right perera. The nurse dressed it with the same dressing that is being used for her left perera. Notified Hilda Snell with no new orders at this time. Patient is scheduled back here at wound center next .
[2023-07-05 09:47] VITALS: BP 145/81; PULSE 88; RESP 20; TEMP 36.2; BMI 49.7
--- NOTE | 2023-07-05 14:48 | PN.PCM_ITS ---
History of Present Illness Date of Service: 07/05/23 Chief Complaint: Left anterior leg ulcers History of Wound: 57-year-old female who originally had a traumatic hematoma in 2012 to her left anterior leg and had an operative debridement and eventually had skin graft placement. She has been seen periodically at the wound center for chronic ulcers to her legs over the years. She has most recently been seeing Dr. Chang for her wound care. Her most significant issue at this time is her edema/lymphedema. When her edema becomes severe, she develops ulcers on her legs. She has a history of T2D, COPD, chronic venous insufficiency, cellulitis, chest pain, left ventricular aneurysm, HTN, Bipolar, ADHD, ABRAM, chronic pain syndrome, GERD. Wound culture from 03/08/23 positive for Staphylococcus aureus and she was started on Doxycycline. Wound culture obtained 04/26/23 which was positive for Staphylococcus aureus that was resistant to Doxycycline and Bactrim, she is allergic to PCN and cephalosporins and she is on several medications that interact with Linezolid, therefore insurance approval was obtained to start her on a new medication Nuzyra which she started 05/02/23. She currently denies fever, chills. Progress of Wound: Left anterior leg ulcer is slightly smaller. She has a new wound on her right anterior leg that occurred a few days ago when she tripped over an electrical cord. Objective Data Objective Data Vital Signs: Vital Signs Temp Pulse Resp BP 97.2 F L 88 20 H 145/81 H 07/05/23 09:47 07/05/23 09:47 07/05/23 09:47 07/05/23 09:47 Weight: 299 lb Body Mass Index (BMI) 49.7 Charges/Coding Procedures Integumentary 111xxx-113xx: [id number] Joie subq tissue 20 sq cm/< Debridement Note Debridement Note Wound debrided: Anterior leg proximal ulcer Laterality: Left Wound Grade/Stage: Stage II Type of Debridement: Excisional debridement Anesthesia Used: 4% Lidocaine Solution Depth: Down to and including healthy tissue and in the subcutaneous layer Percentage of wound debrided: 100 Instrument Used: 5mm curette Tissue Removed: Devitalized tissue and slough Severity: Limited To Skin Breakdown Amount of bleeding with debridement: Mild Bleeding Controlled with: Pressure and Compression and gauze Patient tolerated procedure: Patient tolerated procedure well Post-Debridement Measurements and Additional Note: Post-Debridement Measurements/Treatment WC - Nurse 1 - General Ulcer Assessment Start: 06/21/23 09:23 Freq: Status: Active Protocol: PERRY Activity Type Activity Date Activity User E-sign Co-sign Detail Recorded Client Recorded Date Recorded By Document 06/21/23 09:25 DL [id number] 06/21/23 09:32 DL Document 06/28/23 09:15 JF [id number] 06/28/23 09:18 JF Edit Result 06/28/23 09:15 JF (1) [id number] 06/28/23 09:23 JF Document 07/05/23 09:47 DL [id number] 07/05/23 09:55 DL (1) Temperature (97.8 F-99.1 F) => 96.7 F L Temperature Source => Temporal 06/21/23 06/28/23 07/05/23 09:25 09:15 09:47 - Today's Visit Information Type of service Follow-up Visit Follow-up Visit Follow-up Visit (Physician/BRICK VENEER MAKER (Physician/BRICK VENEER MAKER (Physician/BRICK VENEER MAKER ) ) ) Arrival Mode Ambulatory Ambulatory Ambulatory Transfer Assistance None None Patient Identification Verified (Name & Yes Yes Yes ) Patient Requires Transmission-Based No No No Precautions Finger Stick Blood Sugar(mg/dl) (if 152 indicated): Blood Sugar Stated by Patient Height and Weight Body Mass Index (BMI) 49.7 49.7 49.7 BMI Classification Obese Obese Obese Vital Signs Temperature (97.8 F-99.1 F) 98.2 F 96.7 F L 97.2 F L Temperature Source Temporal Temporal Temporal Pulse Rate (60-100) 86 88 Pulse Location Monitor Monitor Respiratory Rate (12-18) 22 H 18 20 H Respiratory rate source Observation Observation Observation Blood Pressure (90/60-120/80) 104/58 L 145/81 H Blood Pressure Mean (mm Hg) 73 102 Source Monitor Position Sitting Blood Pressure Location Left Forearm History Since Last Visit- (Skip if this is Patient's initial visit) Have you changed medications since your No No No last visit? Any new allergies or adverse reactions No No No Had a fall/change in ADL's that may No No No increase risk of falls Signs or symptoms of abuse and/or No No No neglect since last visit Have you been in the hospital since your No No No last visit? Has dressing in place as prescribed Yes Yes Yes Has compression in place as prescribed Yes Yes Yes Has offloadiing in place as prescribed N/A N/A N/A Experienced any changes in pain level or No No No management Left Footwear Regular Shoe Regular Shoe Right Footwear Regular Shoe Regular Shoe Pain Scale: 0-10 Numeric Is Patient Pain Free? Yes Yes Yes WC - Nurse 1 - General Ulcer Measurement Start: 06/21/23 09:23 Freq: Status: Active Protocol: Activity Type Activity Date Activity User E-sign Co-sign Detail Recorded Client Recorded Date Recorded By Document 06/21/23 09:25 DL [id number] 06/21/23 09:32 DL Document 06/28/23 09:15 JF [id number] 06/28/23 09:18 JF Document 07/05/23 09:47 DL [id number] 07/05/23 09:55 DL 06/21/23 06/28/23 07/05/23 09:25 09:15 09:47 Wound Center Nurse 1 #11 R perera -Current Size (cm) - Length 1.6 -Current Size (cm) - Width 0.9 -Current Size (cm) - Depth 0.1 -Total Square Cm 1.44 -Photo Taken Yes -Exudate Amt Small -Exudate Type Serosanguineous -Wound Margin Distinct, Outline Attached -Granulation Amt Large (67-100%) -Granulation Quality [place] -Necrosis Amt None Present (0 %) -Structure Exposed N/A -Texture (Verónica-wound Skin Appearance) No Abnormality -Moisture (Verónica-wound Skin Appearance) No Abnormality -Color (Verónica-wound Skin Appearance) Hemosiderin Staining -Temperature (Verónica-wound Skin No Abnormality Appearance) (Pt Warm) -Tenderness on Palpation (Verónica-wound No Skin Appearance) -Ulcer Cleansing Rinsed/ Irrigated with Saline -Foul Odor after Cleansing No -Anesthetic Used 5% Lidocaine Gel #7- L PERERA -Combined with other wound No No -Current Size (cm) - Length 2.1 2.3 2.3 -Current Size (cm) - Width 1.4 1.4 1.1 -Current Size (cm) - Depth 0.2 0.2 0.2 -Total Square Cm 2.94 3.22 2.53 -Photo Taken No -Epithelialization Small 1-33% None Present -Tunneling No No -Undermining/Tunneling No No -Circular Undermining No No -Exudate Amt Medium Medium Medium -Exudate Type Serosanguineous Serosanguineous Yellow/Green -Wound Margin Distinct, Flat & Intact Distinct, Outline Outline Attached Attached -Granulation Amt Medium (34-66%) Medium (34-66%) Medium (34-66%) -Granulation Quality Red Red Red -Slough/Fibrin Yes Yes -Necrosis Amt Medium (34-66%) Small (1-33%) Medium (34-66%) -Necrotic Tissue Type Adherent Slough Adherent Slough Adherent Slough -Structure Exposed N/A N/A -Texture (Verónica-wound Skin Appearance) Assessed, Assessed, Scarring Scarring Localized Edema -Moisture (Verónica-wound Skin Appearance) Assessed Assessed,Dry/ No Abnormality Scaly -Color (Verónica-wound Skin Appearance) Assessed Assessed Hemosiderin Staining -Temperature (Verónica-wound Skin No Abnormality No Abnormality No Abnormality Appearance) (Pt Warm) (Pt Warm) (Pt Warm) -Tenderness on Palpation (Verónica-wound No No No Skin Appearance) -Ulcer Cleansing Soap and Water Wound Cleanser Not Cleansed -Foul Odor after Cleansing No No No -Anesthetic Used 5% Lidocaine 5% Lidocaine 5% Lidocaine Gel Gel Gel Lower Limb Edema Present Yes Yes Right Calf (cm) 52.5 Right Ankle (cm) 23 Left Calf (cm) 50.5 49.3 47.5 Left Ankle (cm) 22.7 23.4 23 WC - Nurse 2 - General Ulcer CM Notes Start: 06/21/23 09:23 Freq: Status: Active Protocol: Activity Type Activity Date Activity User E-sign Co-sign Detail Recorded Client Recorded Date Recorded By Document 06/21/23 11:35 PL [id number] 06/21/23 11:36 PL Document 06/28/23 09:30 JF [id number] 06/28/23 12:38 JF Document 07/05/23 10:13 CARLOS [id number] 07/05/23 10:15 JF 06/21/23 06/28/23 07/05/23 11:35 09:30 10:13 Wound Center Nurse 2 #11 R perera -Time 10:14 -Correct Patient Yes -Correct Side, Site, Position Yes -Correct Procedure Yes -Procedure Performed Yes -Type of Procedure Debridement -Clinical Debridement Subcutaneous -Tissue Removed Subcutaneous -Post Debridement (cm) - Length 1.7 -Post Debridement (cm) - Width 0.8 -Post Debridement (cm) - Depth 0.1 -Total Square (Post) (cm) 1.36 -Area of Debridement (cm) - Length 1.7 -Area of Debridement (cm) - Width 0.8 -Total Square (Area) (cm) 1.36 -Tunneling No -Undermining/Tunneling No -Circular Undermining No -Wound/Ulcer Outcome Not Healed -Ulcer Cleansing Rinsed/ Irrigated with Saline -Foul Odor after Cleansing No -Bioengineered Tissue No -Bleeding Controlled with Pressure -Treatment Response Procedure Tolerated Well -Offloading No -Debridement - Subq, 1st 20sq cm No #7- L PERERA -Time 09:48 12:38 10:14 -Correct Patient Yes Yes Yes -Correct Side, Site, Position Yes Yes Yes -Correct Procedure Yes Yes Yes -Procedure Performed Yes Yes Yes -Type of Procedure Debridement Debridement Debridement -Clinical Debridement Subcutaneous Subcutaneous Subcutaneous -Tissue Removed Subcutaneous Subcutaneous Subcutaneous -Post Debridement (cm) - Length 2.3 2.6 2.2 -Post Debridement (cm) - Width 1.5 1.5 1.2 -Post Debridement (cm) - Depth 0.1 0.2 0.1 -Total Square (Post) (cm) 3.45 3.90 2.64 -Area of Debridement (cm) - Length 2.3 2.6 2.2 -Area of Debridement (cm) - Width 1.5 1.5 1.2 -Total Square (Area) (cm) 3.45 3.90 2.64 -Tunneling No No No -Undermining/Tunneling No No No -Circular Undermining No No No -Wound/Ulcer Outcome Not Healed Not Healed Not Healed -Ulcer Cleansing Rinsed/ Rinsed/ Rinsed/ Irrigated with Irrigated with Irrigated with Saline Saline Saline -Foul Odor after Cleansing No No No -Bioengineered Tissue No No No -Bleeding Controlled with Pressure Pressure Pressure -Treatment Response Procedure Procedure Procedure Tolerated Well Tolerated Well Tolerated Well -Offloading No No -Debridement - Subq, 1st 20sq cm Yes Yes Yes Pain Scale: 0-10 Numeric Is Patient Pain Free? Yes Yes Yes WC - Nurse 3 - General Ulcer D/C NN Start: 06/21/23 09:23 Freq: Status: Active Protocol: Activity Type Activity Date Activity User E-sign Co-sign Detail Recorded Client Recorded Date Recorded By Document 06/21/23 10:03 DL [id number] 06/21/23 10:04 DL Document 06/28/23 09:40 PL [id number] 06/28/23 09:41 PL Document 07/05/23 10:21 JF [id number] 07/05/23 10:23 JF 06/21/23 06/28/23 07/05/23 10:03 09:40 10:21 Wound Care Center Nurse 3 #11 R perera -Ulcer Cleansing Rinsed/ Irrigated with Saline -Foul Odor after Cleansing No -Primary Dressing Applied Promogran Latisha Matter -Primary Dressing Covered/Secured with Secured with Tape -Promogran Latisha Matter 1 #7- L PERERA -Ulcer Cleansing Rinsed/ Rinsed/ Rinsed/ Irrigated with Irrigated with Irrigated with Saline Saline Saline -Foul Odor after Cleansing No No -Primary Dressing Applied Aquacel AG 4x4 Promogran Promogran Latisha Matter Latisha Matter -Primary Dressing Covered/Secured with Dry Gauze, Dry Gauze, Dry Gauze, Secured with Secured with Secured with Tape Tape Tape -Other Covering silvestre -Aquacel AG 4x4 1 -Promogran Latisha Matter 1 0 Right -Compression Wrap Silvestre Wrap Left -Compression Wrap Silvestre Wrap -Other Silvestre wrap Treatment Response Procedure Tolerated Well Pain Scale: 0-10 Numeric Is Patient Pain Free? Yes Yes Yes - Visit Discharge Discharge Condition Stable Stable Stable Ambulatory Status Ambulatory Ambulatory Ambulatory Transportation Private Auto Private Auto Private Auto Medication Reconcilliation completed & Yes provided to patient/care provider Clinical Summary of Care Provided Yes Additional Wound Wound debrided: anterior leg wound Laterality: Right Type of Debridement: Excisional debridement Anesthesia Used: 5% Lidocaine Gel Depth: Down to and including healthy tissue and in the subcutaneous layer Percentage of wound debrided: 100 Instrument Used: 5mm curette Tissue Removed: Devitalized tissue and slough Severity: Fat Layer Exposed Amount of bleeding with debridement: Mild Bleeding Controlled with: Pressure and Compression and gauze Patient tolerated procedure: Patient tolerated procedure well Assessment/Plan Assessment/Plan (1) Chronic ulcer of left leg with fat layer exposed: CODE(S): L97.922 - Non-pressure chronic ulcer of unspecified part of left lower leg with fat layer exposed (2) Wound of right lower extremity: CODE(S): S81.801A - Unspecified open wound, right lower leg, initial encounter QUALIFIERS: Encounter type: initial encounter Qualified Code(s): S81.801A - Unspecified open wound, right lower leg, initial encounter (3) Edema of both lower extremities: CODE(S): R60.0 - Localized edema (4) Venous insufficiency (chronic) (peripheral): CODE(S): I87.2 - Venous insufficiency (chronic) (peripheral) (5) Diabetes mellitus type 2, uncontrolled, with complications: CODE(S): E11.8 - Type 2 diabetes mellitus with unspecified complications; E11.65 - Type 2 diabetes mellitus with hyperglycemia PLAN: Plan Patient was evaluated at the wound healing center today. Wound care to the left anterior leg ulcer and right anterior leg wound will be moistened Latisha covered with gauze daily after washing with soap and water. Compression - Double SILVESTRE wrap. Ordered Circaid stocking for compression. Her insurance will not cover them. She is not physically able to get 30-40 mmHg compression stockings on her self. She has purchased compression stockings with 8-15 mmHg. Will have her wear them both on her left leg so she is getting 15-30 mmHg. Instructed her how to place them. She states they are too short and she would like to get a new pair of stockings but cannot afford them at this time. Discussed with her that if she does not consistently wear compression, she will continue to have edema issue which can lead to skin breakdown. She verbalizes understanding. Instructed her that she may take her compression off at bedtime when she is in her bed and then place it back on first thing in the morning. Encouraged diet low in carbohydrates and high in protein. Venous study from 02/10/22 showed Left small saphenous vein was patent and incompetent. The rest of the study was normal. Arterial study from 02/10/22 showed Right MARILU 1.06 and Left MARILU 1.07. Waveforms were Triphasic bilaterally. No signs of arterial disease. Wound culture from 03/08/23 positive for MSSA. She was started on Doxycycline due to her PCN allergy. Wound culture obtained 04/26/23 which was positive for Staphylococcus aureus that was resistant to Doxycycline and Bactrim, she is allergic to PCN and cephalosporins and she is on several medications that interact with Linezolid, therefore insurance approval was obtained to start her on a new medication Nuzyra which she has completed. She states that she sleeps in a chair because her bed is so uncomfortable. Encouraged her to try to lay flat for 20 minutes at a time several times a day to help with her edema. Follow up one week.
[2023-07-12 09:14] VITALS: BP 130/84; PULSE 60; RESP 18; TEMP 37; BMI 49.7
--- NOTE | 2023-07-12 10:08 | PCM.WC.PN ---
History of Present Illness Date of Service: 07/12/23 Chief Complaint: Left anterior leg ulcer History of Wound: 57-year-old female who originally had a traumatic hematoma in 2012 to her left anterior leg and had an operative debridement and eventually had skin graft placement. She has been seen periodically at the wound center for chronic ulcers to her legs over the years. She has most recently been seeing Dr. Chang for her wound care. Her most significant issue at this time is her edema/lymphedema. When her edema becomes severe, she develops ulcers on her legs. She has a history of T2D, COPD, chronic venous insufficiency, cellulitis, chest pain, left ventricular aneurysm, HTN, Bipolar, ADHD, ABRAM, chronic pain syndrome, GERD. Wound culture from 03/08/23 positive for Staphylococcus aureus and she was started on Doxycycline. Wound culture obtained 04/26/23 which was positive for Staphylococcus aureus that was resistant to Doxycycline and Bactrim, she is allergic to PCN and cephalosporins and she is on several medications that interact with Linezolid, therefore insurance approval was obtained to start her on a new medication Nuzyra which she started 05/02/23. She currently denies fever, chills. Progress of Wound: Left anterior leg ulcer is slightly smaller. Her wound on her right anterior leg is healed. Objective Data Objective Data Vital Signs: Vital Signs Temp Pulse Resp BP 98.6 F 60 18 130/84 H 07/12/23 09:14 07/12/23 09:14 07/12/23 09:14 07/12/23 09:14 Weight: 299 lb Body Mass Index (BMI) 49.7 Charges/Coding Procedures Integumentary 111xxx-113xx: [id number] Joie subq tissue 20 sq cm/< Debridement Note Debridement Note Wound debrided: Anterior leg proximal ulcer Laterality: Left Wound Grade/Stage: Stage II Type of Debridement: Excisional debridement Anesthesia Used: 4% Lidocaine Solution Depth: Down to and including healthy tissue and in the subcutaneous layer Percentage of wound debrided: 100 Instrument Used: 5mm curette Tissue Removed: Devitalized tissue and slough Severity: Limited To Skin Breakdown Amount of bleeding with debridement: Mild Bleeding Controlled with: Pressure and Compression and gauze Patient tolerated procedure: Patient tolerated procedure well Post-Debridement Measurements and Additional Note: Post-Debridement Measurements/Treatment WC - Nurse 1 - General Ulcer Assessment Start: 06/21/23 09:23 Freq: Status: Active Protocol: WC.LOWEXT Activity Type Activity Date Activity User E-sign Co-sign Detail Recorded Client Recorded Date Recorded By Document 06/21/23 09:25 DL [id number] 06/21/23 09:32 DL Document 06/28/23 09:15 JF [id number] 06/28/23 09:18 JF Edit Result 06/28/23 09:15 JF (1) [id number] 06/28/23 09:23 JF Document 07/05/23 09:47 DL [id number] 07/05/23 09:55 DL Document 07/12/23 09:14 PL [id number] 07/12/23 09:17 PL (1) Temperature (97.8 F-99.1 F) => 96.7 F L Temperature Source => Temporal 06/21/23 06/28/23 07/05/23 09:25 09:15 09:47 WC - Today's Visit Information Type of service Follow-up Visit Follow-up Visit Follow-up Visit (Physician/FLEXO FOLDER GLUER OPERATOR (Physician/FLEXO FOLDER GLUER OPERATOR (Physician/FLEXO FOLDER GLUER OPERATOR ) ) ) Arrival Mode Ambulatory Ambulatory Ambulatory Transfer Assistance None None Patient Identification Verified (Name & Yes Yes Yes ) Patient Requires Transmission-Based No No No Precautions Finger Stick Blood Sugar(mg/dl) (if 152 indicated): Blood Sugar Stated by Patient Height and Weight Body Mass Index (BMI) 49.7 49.7 49.7 BMI Classification Obese Obese Obese Vital Signs Temperature (97.8 F-99.1 F) 98.2 F 96.7 F L 97.2 F L Temperature Source Temporal Temporal Temporal Pulse Rate (60-100) 86 88 Pulse Location Monitor Monitor Respiratory Rate (12-18) 22 H 18 20 H Respiratory rate source Observation Observation Observation Blood Pressure (90/60-120/80) 104/58 L 145/81 H Blood Pressure Mean (mm Hg) 73 102 Source Monitor Position Sitting Blood Pressure Location Left Forearm History Since Last Visit- (Skip if this is Patient's initial visit) Have you changed medications since your No No No last visit? Any new allergies or adverse reactions No No No Had a fall/change in ADL's that may No No No increase risk of falls Signs or symptoms of abuse and/or No No No neglect since last visit Have you been in the hospital since your No No No last visit? Has dressing in place as prescribed Yes Yes Yes Has compression in place as prescribed Yes Yes Yes Has offloadiing in place as prescribed N/A N/A N/A Experienced any changes in pain level or No No No management Left Footwear Regular Shoe Regular Shoe Right Footwear Regular Shoe Regular Shoe Pain Scale: 0-10 Numeric Is Patient Pain Free? Yes Yes Yes 07/12/23 09:14 WC - Today's Visit Information Type of service Follow-up Visit (Physician/FLEXO FOLDER GLUER OPERATOR ) Arrival Mode Ambulatory Transfer Assistance None Patient Identification Verified (Name & Yes ) Patient Requires Transmission-Based No Precautions Finger Stick Blood Sugar(mg/dl) (if indicated): Blood Sugar Height and Weight Body Mass Index (BMI) 49.7 BMI Classification Obese Vital Signs Temperature (97.8 F-99.1 F) 98.6 F Temperature Source Temporal Pulse Rate (60-100) 60 Pulse Location Respiratory Rate (12-18) 18 Respiratory rate source Blood Pressure (90/60-120/80) 130/84 H Blood Pressure Mean (mm Hg) 99 Source Position Blood Pressure Location History Since Last Visit- (Skip if this is Patient's initial visit) Have you changed medications since your No last visit? Any new allergies or adverse reactions No Had a fall/change in ADL's that may No increase risk of falls Signs or symptoms of abuse and/or No neglect since last visit Have you been in the hospital since your No last visit? Has dressing in place as prescribed Yes Has compression in place as prescribed Yes Has offloadiing in place as prescribed N/A Experienced any changes in pain level or No management Left Footwear Right Footwear Pain Scale: 0-10 Numeric Is Patient Pain Free? Yes - Nurse 1 - General Ulcer Measurement Start: 06/21/23 09:23 Freq: Status: Active Protocol: Activity Type Activity Date Activity User E-sign Co-sign Detail Recorded Client Recorded Date Recorded By Document 06/21/23 09:25 DL [id number] 06/21/23 09:32 DL Document 06/28/23 09:15 JF [id number] 06/28/23 09:18 JF Document 07/05/23 09:47 DL [id number] 07/05/23 09:55 DL 06/21/23 06/28/23 07/05/23 09:25 09:15 09:47 Wound Center Nurse 1 #11 R perera -Current Size (cm) - Length 1.6 -Current Size (cm) - Width 0.9 -Current Size (cm) - Depth 0.1 -Total Square Cm 1.44 -Photo Taken Yes -Exudate Amt Small -Exudate Type Serosanguineous -Wound Margin Distinct, Outline Attached -Granulation Amt Large (67-100%) -Granulation Quality [place] -Necrosis Amt None Present (0 %) -Structure Exposed N/A -Texture (Verónica-wound Skin Appearance) No Abnormality -Moisture (Verónica-wound Skin Appearance) No Abnormality -Color (Verónica-wound Skin Appearance) Hemosiderin Staining -Temperature (Verónica-wound Skin No Abnormality Appearance) (Pt Warm) -Tenderness on Palpation (Verónica-wound No Skin Appearance) -Ulcer Cleansing Rinsed/ Irrigated with Saline -Foul Odor after Cleansing No -Anesthetic Used 5% Lidocaine Gel #7- L PERERA -Combined with other wound No No -Current Size (cm) - Length 2.1 2.3 2.3 -Current Size (cm) - Width 1.4 1.4 1.1 -Current Size (cm) - Depth 0.2 0.2 0.2 -Total Square Cm 2.94 3.22 2.53 -Photo Taken No -Epithelialization Small 1-33% None Present -Tunneling No No -Undermining/Tunneling No No -Circular Undermining No No -Exudate Amt Medium Medium Medium -Exudate Type Serosanguineous Serosanguineous Yellow/Green -Wound Margin Distinct, Flat & Intact Distinct, Outline Outline Attached Attached -Granulation Amt Medium (34-66%) Medium (34-66%) Medium (34-66%) -Granulation Quality Red Red Red -Slough/Fibrin Yes Yes -Necrosis Amt Medium (34-66%) Small (1-33%) Medium (34-66%) -Necrotic Tissue Type Adherent Slough Adherent Slough Adherent Slough -Structure Exposed N/A N/A -Texture (Verónica-wound Skin Appearance) Assessed, Assessed, Scarring Scarring Localized Edema -Moisture (Verónica-wound Skin Appearance) Assessed Assessed,Dry/ No Abnormality Scaly -Color (Verónica-wound Skin Appearance) Assessed Assessed Hemosiderin Staining -Temperature (Verónica-wound Skin No Abnormality No Abnormality No Abnormality Appearance) (Pt Warm) (Pt Warm) (Pt Warm) -Tenderness on Palpation (Verónica-wound No No No Skin Appearance) -Ulcer Cleansing Soap and Water Wound Cleanser Not Cleansed -Foul Odor after Cleansing No No No -Anesthetic Used 5% Lidocaine 5% Lidocaine 5% Lidocaine Gel Gel Gel Lower Limb Edema Present Yes Yes Right Calf (cm) 52.5 Right Ankle (cm) 23 Left Calf (cm) 50.5 49.3 47.5 Left Ankle (cm) 22.7 23.4 23 WC - Nurse 2 - General Ulcer CM Notes Start: 06/21/23 09:23 Freq: Status: Active Protocol: Activity Type Activity Date Activity User E-sign Co-sign Detail Recorded Client Recorded Date Recorded By Document 06/21/23 11:35 PL [id number] 06/21/23 11:36 PL Document 06/28/23 09:30 JF [id number] 06/28/23 12:38 Document 07/05/23 10:13 [id number] 07/05/23 10:15 Document 07/12/23 09:43 [id number] 07/12/23 09:45 06/21/23 06/28/23 07/05/23 11:35 09:30 10:13 Wound Center Nurse 2 #11 R perera -Time 10:14 -Correct Patient Yes -Correct Side, Site, Position Yes -Correct Procedure Yes -Procedure Performed Yes -Type of Procedure Debridement -Clinical Debridement Subcutaneous -Tissue Removed Subcutaneous -Post Debridement (cm) - Length 1.7 -Post Debridement (cm) - Width 0.8 -Post Debridement (cm) - Depth 0.1 -Total Square (Post) (cm) 1.36 -Area of Debridement (cm) - Length 1.7 -Area of Debridement (cm) - Width 0.8 -Total Square (Area) (cm) 1.36 -Tunneling No -Undermining/Tunneling No -Circular Undermining No -Wound/Ulcer Outcome Not Healed -Ulcer Cleansing Rinsed/ Irrigated with Saline -Foul Odor after Cleansing No -Bioengineered Tissue No -Bleeding Controlled with Pressure -Treatment Response Procedure Tolerated Well -Offloading No -Debridement - Subq, 1st 20sq cm No #7- L PERERA -Time 09:48 12:38 10:14 -Correct Patient Yes Yes Yes -Correct Side, Site, Position Yes Yes Yes -Correct Procedure Yes Yes Yes -Procedure Performed Yes Yes Yes -Type of Procedure Debridement Debridement Debridement -Clinical Debridement Subcutaneous Subcutaneous Subcutaneous -Tissue Removed Subcutaneous Subcutaneous Subcutaneous -Post Debridement (cm) - Length 2.3 2.6 2.2 -Post Debridement (cm) - Width 1.5 1.5 1.2 -Post Debridement (cm) - Depth 0.1 0.2 0.1 -Total Square (Post) (cm) 3.45 3.90 2.64 -Area of Debridement (cm) - Length 2.3 2.6 2.2 -Area of Debridement (cm) - Width 1.5 1.5 1.2 -Total Square (Area) (cm) 3.45 3.90 2.64 -Tunneling No No No -Undermining/Tunneling No No No -Circular Undermining No No No -Wound/Ulcer Outcome Not Healed Not Healed Not Healed -Ulcer Cleansing Rinsed/ Rinsed/ Rinsed/ Irrigated with Irrigated with Irrigated with Saline Saline Saline -Foul Odor after Cleansing No No No -Bioengineered Tissue No No No -Bleeding Controlled with Pressure Pressure Pressure -Treatment Response Procedure Procedure Procedure Tolerated Well Tolerated Well Tolerated Well -Offloading No No -Debridement - Subq, 20sq cm Yes Yes Yes Pain Scale: 0-10 Numeric Is Patient Pain Free? Yes Yes Yes 07/12/23 09:43 Wound Center Nurse 2 #11 R perera -Time -Correct Patient No -Correct Side, Site, Position No -Correct Procedure No -Procedure Performed No -Type of Procedure -Clinical Debridement -Tissue Removed -Post Debridement (cm) - Length 0 -Post Debridement (cm) - Width 0 -Post Debridement (cm) - Depth 0 -Total Square (Post) (cm) 0 -Area of Debridement (cm) - Length 0 -Area of Debridement (cm) - Width 0 -Total Square (Area) (cm) 0 -Tunneling -Undermining/Tunneling -Circular Undermining -Wound/Ulcer Outcome Healed- Epithelialized -Ulcer Cleansing Rinsed/ Irrigated with Saline -Foul Odor after Cleansing -Bioengineered Tissue -Bleeding Controlled with -Treatment Response -Offloading -Debridement - Subq, 20sq cm #7- L PERERA -Time 09:44 -Correct Patient Yes -Correct Side, Site, Position Yes -Correct Procedure Yes -Procedure Performed Yes -Type of Procedure Debridement -Clinical Debridement Subcutaneous -Tissue Removed Subcutaneous -Post Debridement (cm) - Length 2.0 -Post Debridement (cm) - Width 1.2 -Post Debridement (cm) - Depth 0.2 -Total Square (Post) (cm) 2.40 -Area of Debridement (cm) - Length 2.0 -Area of Debridement (cm) - Width 1.2 -Total Square (Area) (cm) 2.40 -Tunneling No -Undermining/Tunneling No -Circular Undermining No -Wound/Ulcer Outcome Not Healed -Ulcer Cleansing Rinsed/ Irrigated with Saline -Foul Odor after Cleansing No -Bioengineered Tissue No -Bleeding Controlled with Pressure -Treatment Response Procedure Tolerated Well -Offloading No -Debridement - Subq, 1st 20sq cm Yes Pain Scale: 0-10 Numeric Is Patient Pain Free? Yes WC - Nurse 3 - General Ulcer D/C NN Start: 06/21/23 09:23 Freq: Status: Active Protocol: Activity Type Activity Date Activity User E-sign Co-sign Detail Recorded Client Recorded Date Recorded By Document 06/21/23 10:03 DL [id number] 06/21/23 10:04 DL Document 06/28/23 09:40 PL [id number] 06/28/23 09:41 PL Document 07/05/23 10:21 [id number] 07/05/23 10:23 JF Document 07/12/23 09:58 PL [id number] 07/12/23 10:00 PL 06/21/23 06/28/23 07/05/23 10:03 09:40 10:21 Wound Care Center Nurse 3 #11 R perera -Ulcer Cleansing Rinsed/ Irrigated with Saline -Foul Odor after Cleansing No -Primary Dressing Applied Promogran Latisha Matter -Primary Dressing Covered/Secured with Secured with Tape -Promogran Latisha Matter 1 #7- L PERERA -Ulcer Cleansing Rinsed/ Rinsed/ Rinsed/ Irrigated with Irrigated with Irrigated with Saline Saline Saline -Foul Odor after Cleansing No No -Primary Dressing Applied Aquacel AG 4x4 Promogran Promogran Latisha Matter Latisha Matter -Primary Dressing Covered/Secured with Dry Gauze, Dry Gauze, Dry Gauze, Secured with Secured with Secured with Tape Tape Tape -Other Covering silvestre -Aquacel AG 4x4 1 -Promogran Latisha Matter 1 0 Bilateral -Other Right -Compression Wrap Silvestre Wrap Left -Compression Wrap Silvestre Wrap -Other Silvestre wrap Treatment Response Procedure Tolerated Well Pain Scale: 0-10 Numeric Is Patient Pain Free? Yes Yes Yes WC - Visit Discharge Discharge Condition Stable Stable Stable Ambulatory Status Ambulatory Ambulatory Ambulatory Transportation Private Auto Private Auto Private Auto Medication Reconcilliation completed & Yes provided to patient/care provider Clinical Summary of Care Provided Yes 07/12/23 09:58 Wound Care Center Nurse 3 #11 R perera -Ulcer Cleansing -Foul Odor after Cleansing -Primary Dressing Applied -Primary Dressing Covered/Secured with -Promogran Latisha Matter #7- L PERERA -Ulcer Cleansing Dakins -Foul Odor after Cleansing No -Primary Dressing Applied Promogran Latisha Matter -Primary Dressing Covered/Secured with Dry Gauze, Secured with Tape -Other Covering -Aquacel AG 4x4 -Promogran Latisha Matter 1 Bilateral -Other 6 silvestre wrap Right -Compression Wrap Left -Compression Wrap -Other Treatment Response Pain Scale: 0-10 Numeric Is Patient Pain Free? Yes WC - Visit Discharge Discharge Condition Stable Ambulatory Status Ambulatory Transportation Medication Reconcilliation completed & provided to patient/care provider Clinical Summary of Care Provided Assessment/Plan Assessment/Plan (1) Chronic ulcer of left leg with fat layer exposed: CODE(S): L97.922 - Non-pressure chronic ulcer of unspecified part of left lower leg with fat layer exposed (2) Wound of right lower extremity: CODE(S): S81.801A - Unspecified open wound, right lower leg, initial encounter QUALIFIERS: Encounter type: initial encounter Qualified Code(s): S81.801A - Unspecified open wound, right lower leg, initial encounter (3) Edema of both lower extremities: CODE(S): R60.0 - Localized edema (4) Venous insufficiency (chronic) (peripheral): CODE(S): I87.2 - Venous insufficiency (chronic) (peripheral) (5) Diabetes mellitus type 2, uncontrolled, with complications: CODE(S): E11.8 - Type 2 diabetes mellitus with unspecified complications; E11.65 - Type 2 diabetes mellitus with hyperglycemia PLAN: Plan Patient was evaluated at the wound healing center today. Wound care to the left anterior leg ulcer is washing ulcer with soap and water, rinse with Dakins 0.25%, apply moistened Latisha covered with gauze daily. Will see if rinsing with Dakins will help minimize bacterial growth. Compression - Double SILVESTRE wrap. Ordered Circaid stocking for compression. Her insurance will not cover them. She is not physically able to get 30-40 mmHg compression stockings on her self. She has purchased compression stockings with 8-15 mmHg. Will have her wear them both on her left leg so she is getting 15-30 mmHg. Instructed her how to place them. She states they are too short and she would like to get a new pair of stockings but cannot afford them at this time. Discussed with her that if she does not consistently wear compression, she will continue to have edema issue which can lead to skin breakdown. She verbalizes understanding. Instructed her that she may take her compression off at bedtime when she is in her bed and then place it back on first thing in the morning. Encouraged diet low in carbohydrates and high in protein. Venous study from 02/10/22 showed Left small saphenous vein was patent and incompetent. The rest of the study was normal. Arterial study from 02/10/22 showed Right MARILU 1.06 and Left MARILU 1.07. Waveforms were Triphasic bilaterally. No signs of arterial disease. Wound culture from 03/08/23 positive for MSSA. She was started on Doxycycline due to her PCN allergy. Wound culture obtained 04/26/23 which was positive for Staphylococcus aureus that was resistant to Doxycycline and Bactrim, she is allergic to PCN and cephalosporins and she is on several medications that interact with Linezolid, therefore insurance approval was obtained to start her on a new medication Nuzyra which she has completed. She states that she sleeps in a chair because her bed is so uncomfortable. Encouraged her to try to lay flat for 20 minutes at a time several times a day to help with her edema. Follow up one week.
[2023-07-19 09:39] VITALS: BP 187/65; PULSE 68; RESP 22; TEMP 36.8; BMI 49.7
--- NOTE | 2023-07-19 10:19 | PN.PCM_ITS ---
History of Present Illness Date of Service: 07/19/23 Chief Complaint: Left anterior leg ulcer History of Wound: 57-year-old female who originally had a traumatic hematoma in 2012 to her left anterior leg and had an operative debridement and eventually had skin graft placement. She has been seen periodically at the wound center for chronic ulcers to her legs over the years. She has most recently been seeing Dr. Chang for her wound care. Her most significant issue at this time is her edema/lymphedema. When her edema becomes severe, she develops ulcers on her legs. She has a history of T2D, COPD, chronic venous insufficiency, cellulitis, chest pain, left ventricular aneurysm, HTN, Bipolar, ADHD, ABRAM, chronic pain syndrome, GERD. Wound culture from 03/08/23 positive for Staphylococcus aureus and she was started on Doxycycline. Wound culture obtained 04/26/23 which was positive for Staphylococcus aureus that was resistant to Doxycycline and Bactrim, she is allergic to PCN and cephalosporins and she is on several medications that interact with Linezolid, therefore insurance approval was obtained to start her on a new medication Nuzyra which she started 05/02/23. She currently denies fever, chills. Progress of Wound: Left anterior leg ulcer is slightly smaller. Her wound on her right anterior leg remains healed. Objective Data Objective Data Vital Signs: Vital Signs Temp Pulse Resp BP 98.3 F 68 22 H 187/65 H 07/19/23 09:39 07/19/23 09:39 07/19/23 09:39 07/19/23 09:39 Weight: 299 lb Body Mass Index (BMI) 49.7 Charges/Coding Procedures Integumentary 111xxx-113xx: [id number] Joie subq tissue 20 sq cm/< Debridement Note Debridement Note Wound debrided: Anterior leg proximal ulcer Laterality: Left Wound Grade/Stage: Stage II Type of Debridement: Excisional debridement Anesthesia Used: 5% Lidocaine Gel Depth: Down to and including healthy tissue and in the subcutaneous layer Percentage of wound debrided: 100 Instrument Used: 5mm curette Tissue Removed: Devitalized tissue and slough Severity: Limited To Skin Breakdown Amount of bleeding with debridement: Mild Bleeding Controlled with: Pressure and Compression and gauze Patient tolerated procedure: Patient tolerated procedure well Post-Debridement Measurements and Additional Note: Post-Debridement Measurements/Treatment WC - Nurse 1 - General Ulcer Assessment Start: 06/21/23 09:23 Freq: Status: Active Protocol: WC.LOWEXT Activity Type Activity Date Activity User E-sign Co-sign Detail Recorded Client Recorded Date Recorded By Document 06/21/23 09:25 DL [id number] 06/21/23 09:32 DL Document 06/28/23 09:15 JF [id number] 06/28/23 09:18 JF Edit Result 06/28/23 09:15 JF (1) [id number] 06/28/23 09:23 JF Document 07/05/23 09:47 DL [id number] 07/05/23 09:55 DL Document 07/12/23 09:14 PL [id number] 07/12/23 09:17 PL Document 07/19/23 09:39 DL [id number] 07/19/23 09:44 DL (1) Temperature (97.8 F-99.1 F) => 96.7 F L Temperature Source => Temporal 06/21/23 06/28/23 07/05/23 09:25 09:15 09:47 - Today's Visit Information Type of service Follow-up Visit Follow-up Visit Follow-up Visit (Physician/MAINTENANCE SUPERVISOR 2ND SHIFT (Physician/MAINTENANCE SUPERVISOR 2ND SHIFT (Physician/MAINTENANCE SUPERVISOR 2ND SHIFT ) ) ) Arrival Mode Ambulatory Ambulatory Ambulatory Transfer Assistance None None Patient Identification Verified (Name & Yes Yes Yes ) Patient Requires Transmission-Based No No No Precautions Finger Stick Blood Sugar(mg/dl) (if 152 indicated): Blood Sugar Stated by Patient Height and Weight Body Mass Index (BMI) 49.7 49.7 49.7 BMI Classification Obese Obese Obese Vital Signs Temperature (97.8 F-99.1 F) 98.2 F 96.7 F L 97.2 F L Temperature Source Temporal Temporal Temporal Pulse Rate (60-100) 86 88 Pulse Location Monitor Monitor Respiratory Rate (12-18) 22 H 18 20 H Respiratory rate source Observation Observation Observation Blood Pressure (90/60-120/80) 104/58 L 145/81 H Blood Pressure Mean (mm Hg) 73 102 Source Monitor Position Sitting Blood Pressure Location Left Forearm History Since Last Visit- (Skip if this is Patient's initial visit) Have you changed medications since your No No No last visit? Any new allergies or adverse reactions No No No Had a fall/change in ADL's that may No No No increase risk of falls Signs or symptoms of abuse and/or No No No neglect since last visit Have you been in the hospital since your No No No last visit? Has dressing in place as prescribed Yes Yes Yes Has compression in place as prescribed Yes Yes Yes Has offloadiing in place as prescribed N/A N/A N/A Experienced any changes in pain level or No No No management Left Footwear Regular Shoe Regular Shoe Right Footwear Regular Shoe Regular Shoe Pain Scale: 0-10 Numeric Is Patient Pain Free? Yes Yes Yes 07/12/23 07/19/23 09:14 09:39 WC - Today's Visit Information Type of service Follow-up Visit Follow-up Visit (Physician/MAINTENANCE SUPERVISOR 2ND SHIFT (Physician/MAINTENANCE SUPERVISOR 2ND SHIFT ) ) Arrival Mode Ambulatory Ambulatory Transfer Assistance None None Patient Identification Verified (Name & Yes Yes ) Patient Requires Transmission-Based No No Precautions Finger Stick Blood Sugar(mg/dl) (if 132 indicated): Blood Sugar Stated by Patient Height and Weight Body Mass Index (BMI) 49.7 49.7 BMI Classification Obese Obese Vital Signs Temperature (97.8 F-99.1 F) 98.6 F 98.3 F Temperature Source Temporal Temporal Pulse Rate (60-100) 60 68 Pulse Location Monitor Respiratory Rate (12-18) 18 22 H Respiratory rate source Observation Blood Pressure (90/60-120/80) 130/84 H 187/65 H Blood Pressure Mean (mm Hg) 99 105 Source Monitor Position Blood Pressure Location History Since Last Visit- (Skip if this is Patient's initial visit) Have you changed medications since your No No last visit? Any new allergies or adverse reactions No No Had a fall/change in ADL's that may No No increase risk of falls Signs or symptoms of abuse and/or No No neglect since last visit Have you been in the hospital since your No No last visit? Has dressing in place as prescribed Yes Yes Has compression in place as prescribed Yes Yes Has offloadiing in place as prescribed N/A N/A Experienced any changes in pain level or No No management Left Footwear Right Footwear Pain Scale: 0-10 Numeric Is Patient Pain Free? Yes Yes - Nurse 1 - General Ulcer Measurement Start: 06/21/23 09:23 Freq: Status: Active Protocol: Activity Type Activity Date Activity User E-sign Co-sign Detail Recorded Client Recorded Date Recorded By Document 06/21/23 09:25 DL [id number] 06/21/23 09:32 DL Document 06/28/23 09:15 JF [id number] 06/28/23 09:18 JF Document 07/05/23 09:47 DL [id number] 07/05/23 09:55 DL Document 07/19/23 09:39 DL [id number] 07/19/23 09:44 DL 06/21/23 06/28/23 07/05/23 09:25 09:15 09:47 Wound Center Nurse 1 #11 R perera -Current Size (cm) - Length 1.6 -Current Size (cm) - Width 0.9 -Current Size (cm) - Depth 0.1 -Total Square Cm 1.44 -Photo Taken Yes -Exudate Amt Small -Exudate Type Serosanguineous -Wound Margin Distinct, Outline Attached -Granulation Amt Large (67-100%) -Granulation Quality Walker -Necrosis Amt None Present (0 %) -Structure Exposed N/A -Texture (Verónica-wound Skin Appearance) No Abnormality -Moisture (Verónica-wound Skin Appearance) No Abnormality -Color (Verónica-wound Skin Appearance) Hemosiderin Staining -Temperature (Verónica-wound Skin No Abnormality Appearance) (Pt Warm) -Tenderness on Palpation (Verónica-wound No Skin Appearance) -Ulcer Cleansing Rinsed/ Irrigated with Saline -Foul Odor after Cleansing No -Anesthetic Used 5% Lidocaine Gel #7- L PERERA -Combined with other wound No No -Current Size (cm) - Length 2.1 2.3 2.3 -Current Size (cm) - Width 1.4 1.4 1.1 -Current Size (cm) - Depth 0.2 0.2 0.2 -Total Square Cm 2.94 3.22 2.53 -Photo Taken No -Epithelialization Small 1-33% None Present -Tunneling No No -Undermining/Tunneling No No -Circular Undermining No No -Exudate Amt Medium Medium Medium -Exudate Type Serosanguineous Serosanguineous Yellow/Green -Wound Margin Distinct, Flat & Intact Distinct, Outline Outline Attached Attached -Granulation Amt Medium (34-66%) Medium (34-66%) Medium (34-66%) -Granulation Quality Red Red Red -Slough/Fibrin Yes Yes -Necrosis Amt Medium (34-66%) Small (1-33%) Medium (34-66%) -Necrotic Tissue Type Adherent Slough Adherent Slough Adherent Slough -Structure Exposed N/A N/A -Texture (Verónica-wound Skin Appearance) Assessed, Assessed, Scarring Scarring Localized Edema -Moisture (Verónica-wound Skin Appearance) Assessed Assessed,Dry/ No Abnormality Scaly -Color (Verónica-wound Skin Appearance) Assessed Assessed Hemosiderin Staining -Temperature (Verónica-wound Skin No Abnormality No Abnormality No Abnormality Appearance) (Pt Warm) (Pt Warm) (Pt Warm) -Tenderness on Palpation (Verónica-wound No No No Skin Appearance) -Ulcer Cleansing Soap and Water Wound Cleanser Not Cleansed -Foul Odor after Cleansing No No No -Anesthetic Used 5% Lidocaine 5% Lidocaine 5% Lidocaine Gel Gel Gel Lower Limb Edema Present Yes Yes Right Calf (cm) 52.5 Right Ankle (cm) 23 Left Calf (cm) 50.5 49.3 47.5 Left Ankle (cm) 22.7 23.4 23 07/19/23 09:39 Wound Center Nurse 1 #11 R perera -Current Size (cm) - Length -Current Size (cm) - Width -Current Size (cm) - Depth -Total Square Cm -Photo Taken -Exudate Amt -Exudate Type -Wound Margin -Granulation Amt -Granulation Quality -Necrosis Amt -Structure Exposed -Texture (Verónica-wound Skin Appearance) -Moisture (Verónica-wound Skin Appearance) -Color (Verónica-wound Skin Appearance) -Temperature (Verónica-wound Skin Appearance) -Tenderness on Palpation (Verónica-wound Skin Appearance) -Ulcer Cleansing -Foul Odor after Cleansing -Anesthetic Used #7- L PERERA -Combined with other wound -Current Size (cm) - Length 1.9 -Current Size (cm) - Width 0.9 -Current Size (cm) - Depth 0.2 -Total Square Cm 1.71 -Photo Taken -Epithelialization -Tunneling -Undermining/Tunneling -Circular Undermining -Exudate Amt Medium -Exudate Type Serosanguineous -Wound Margin Distinct, Outline Attached -Granulation Amt Medium (34-66%) -Granulation Quality Walker -Slough/Fibrin -Necrosis Amt Small (1-33%) -Necrotic Tissue Type -Structure Exposed N/A -Texture (Verónica-wound Skin Appearance) Scarring -Moisture (Verónica-wound Skin Appearance) No Abnormality -Color (Verónica-wound Skin Appearance) Hemosiderin Staining -Temperature (Verónica-wound Skin No Abnormality Appearance) (Pt Warm) -Tenderness on Palpation (Verónica-wound No Skin Appearance) -Ulcer Cleansing -Foul Odor after Cleansing -Anesthetic Used 5% Lidocaine Gel Lower Limb Edema Present Right Calf (cm) Right Ankle (cm) Left Calf (cm) 49 Left Ankle (cm) 23 WC - Nurse 2 - General Ulcer CM Notes Start: 06/21/23 09:23 Freq: Status: Active Protocol: Activity Type Activity Date Activity User E-sign Co-sign Detail Recorded Client Recorded Date Recorded By Document 06/21/23 11:35 PL [id number] 06/21/23 11:36 PL Document 06/28/23 09:30 JF [id number] 06/28/23 12:38 JF Document 07/05/23 10:13 [id number] 07/05/23 10:15 Document 07/12/23 09:43 [id number] 07/12/23 09:45 Document 07/19/23 09:53 [id number] 07/19/23 09:54 06/21/23 06/28/23 07/05/23 11:35 09:30 10:13 Wound Center Nurse 2 #11 R perera -Time 10:14 -Correct Patient Yes -Correct Side, Site, Position Yes -Correct Procedure Yes -Procedure Performed Yes -Type of Procedure Debridement -Clinical Debridement Subcutaneous -Tissue Removed Subcutaneous -Post Debridement (cm) - Length 1.7 -Post Debridement (cm) - Width 0.8 -Post Debridement (cm) - Depth 0.1 -Total Square (Post) (cm) 1.36 -Area of Debridement (cm) - Length 1.7 -Area of Debridement (cm) - Width 0.8 -Total Square (Area) (cm) 1.36 -Tunneling No -Undermining/Tunneling No -Circular Undermining No -Wound/Ulcer Outcome Not Healed -Ulcer Cleansing Rinsed/ Irrigated with Saline -Foul Odor after Cleansing No -Bioengineered Tissue No -Bleeding Controlled with Pressure -Treatment Response Procedure Tolerated Well -Offloading No -Debridement - Subq, 1st 20sq cm No #7- L PERERA -Time 09:48 12:38 10:14 -Correct Patient Yes Yes Yes -Correct Side, Site, Position Yes Yes Yes -Correct Procedure Yes Yes Yes -Procedure Performed Yes Yes Yes -Type of Procedure Debridement Debridement Debridement -Clinical Debridement Subcutaneous Subcutaneous Subcutaneous -Tissue Removed Subcutaneous Subcutaneous Subcutaneous -Post Debridement (cm) - Length 2.3 2.6 2.2 -Post Debridement (cm) - Width 1.5 1.5 1.2 -Post Debridement (cm) - Depth 0.1 0.2 0.1 -Total Square (Post) (cm) 3.45 3.90 2.64 -Area of Debridement (cm) - Length 2.3 2.6 2.2 -Area of Debridement (cm) - Width 1.5 1.5 1.2 -Total Square (Area) (cm) 3.45 3.90 2.64 -Tunneling No No No -Undermining/Tunneling No No No -Circular Undermining No No No -Wound/Ulcer Outcome Not Healed Not Healed Not Healed -Ulcer Cleansing Rinsed/ Rinsed/ Rinsed/ Irrigated with Irrigated with Irrigated with Saline Saline Saline -Foul Odor after Cleansing No No No -Bioengineered Tissue No No No -Bleeding Controlled with Pressure Pressure Pressure -Treatment Response Procedure Procedure Procedure Tolerated Well Tolerated Well Tolerated Well -Offloading No No -Debridement - Subq, 1st 20sq cm Yes Yes Yes Pain Scale: 0-10 Numeric Is Patient Pain Free? Yes Yes Yes 07/12/23 07/19/23 09:43 09:53 Wound Center Nurse 2 #11 R perera -Time -Correct Patient No -Correct Side, Site, Position No -Correct Procedure No -Procedure Performed No -Type of Procedure -Clinical Debridement -Tissue Removed -Post Debridement (cm) - Length 0 -Post Debridement (cm) - Width 0 -Post Debridement (cm) - Depth 0 -Total Square (Post) (cm) 0 -Area of Debridement (cm) - Length 0 -Area of Debridement (cm) - Width 0 -Total Square (Area) (cm) 0 -Tunneling -Undermining/Tunneling -Circular Undermining -Wound/Ulcer Outcome Healed- Epithelialized -Ulcer Cleansing Rinsed/ Irrigated with Saline -Foul Odor after Cleansing -Bioengineered Tissue -Bleeding Controlled with -Treatment Response -Offloading -Debridement - Subq, 1st 20sq cm #7- L PERERA -Time 09:44 09:53 -Correct Patient Yes Yes -Correct Side, Site, Position Yes Yes -Correct Procedure Yes Yes -Procedure Performed Yes Yes -Type of Procedure Debridement Debridement -Clinical Debridement Subcutaneous Subcutaneous -Tissue Removed Subcutaneous Subcutaneous -Post Debridement (cm) - Length 2.0 1.8 -Post Debridement (cm) - Width 1.2 1.2 -Post Debridement (cm) - Depth 0.2 0.2 -Total Square (Post) (cm) 2.40 2.16 -Area of Debridement (cm) - Length 2.0 1.8 -Area of Debridement (cm) - Width 1.2 1.2 -Total Square (Area) (cm) 2.40 2.16 -Tunneling No No -Undermining/Tunneling No No -Circular Undermining No No -Wound/Ulcer Outcome Not Healed Not Healed -Ulcer Cleansing Rinsed/ Rinsed/ Irrigated with Irrigated with Saline Saline -Foul Odor after Cleansing No No -Bioengineered Tissue No No -Bleeding Controlled with Pressure Pressure -Treatment Response Procedure Procedure Tolerated Well Tolerated Well -Offloading No No -Debridement - Subq, 1st 20sq cm Yes Yes Pain Scale: 0-10 Numeric Is Patient Pain Free? Yes Yes WC - Nurse 3 - General Ulcer D/C NN Start: 06/21/23 09:23 Freq: Status: Active Protocol: Activity Type Activity Date Activity User E-sign Co-sign Detail Recorded Client Recorded Date Recorded By Document 06/21/23 10:03 DL [id number] 06/21/23 10:04 DL Document 06/28/23 09:40 PL [id number] 06/28/23 09:41 PL Document 07/05/23 10:21 JF [id number] 07/05/23 10:23 JF Document 07/12/23 09:58 PL [id number] 07/12/23 10:00 PL Document 07/19/23 09:54 JF [id number] 07/19/23 09:55 JF Edit Result 07/19/23 09:54 JF (1) [id number] 07/19/23 10:17 JF (1) Discharge Condition Stable => Unstable Notes: => Patient went to stand up to leave and stated her asthma is acting up and appeared with slightly labored breathing. Asked patient to sit down and use her inhaler if she had one in her purse. 2 hits of her albuterol was used and rechecked her vital signs with BP 180/95 and pulse 64. Patient was 96-97% on Room air. Blood sugar was 181 and a glucerna was provided. Hilda Snell [employer] FURNACE INSTALLER AND REPAIRER looked at her ears since patient complained of right ear heaviness. Some fluid was seen and patient was encouraged to take OTC zyrtec or claritin with her singulair. Patient was then wheelchaired out to waiting room and her dad was in the car to drive her home. Patient was able to ambulate to her car without difficulty. 06/21/23 06/28/23 07/05/23 10:03 09:40 10:21 Wound Care Center Nurse 3 #11 R perera -Ulcer Cleansing Rinsed/ Irrigated with Saline -Foul Odor after Cleansing No -Primary Dressing Applied Promogran Latisha Matter -Primary Dressing Covered/Secured with Secured with Tape -Promogran Latisha Matter 1 #7- L PERERA -Ulcer Cleansing Rinsed/ Rinsed/ Rinsed/ Irrigated with Irrigated with Irrigated with Saline Saline Saline -Foul Odor after Cleansing No No -Primary Dressing Applied Aquacel AG 4x4 Promogran Promogran Latisha Matter Latisha Matter -Primary Dressing Covered/Secured with Dry Gauze, Dry Gauze, Dry Gauze, Secured with Secured with Secured with Tape Tape Tape -Other Covering silvestre -Aquacel AG 4x4 1 -Promogran Latisha Matter 1 0 Bilateral -Compression Wrap -Other Right -Compression Wrap Silvestre Wrap Left -Compression Wrap Silvestre Wrap -Other Silvestre wrap Treatment Response Procedure Tolerated Well Pain Scale: 0-10 Numeric Is Patient Pain Free? Yes Yes Yes WC - Visit Discharge Discharge Condition Stable Stable Stable Ambulatory Status Ambulatory Ambulatory Ambulatory Transportation Private Auto Private Auto Private Auto Medication Reconcilliation completed & Yes provided to patient/care provider Clinical Summary of Care Provided Yes Notes: 07/12/23 07/19/23 09:58 09:54 Wound Care Center Nurse 3 #11 R perera -Ulcer Cleansing -Foul Odor after Cleansing -Primary Dressing Applied -Primary Dressing Covered/Secured with -Promogran Latisha Matter #7- L PERERA -Ulcer Cleansing Dakins Rinsed/ Irrigated with Saline -Foul Odor after Cleansing No No -Primary Dressing Applied Promogran Promogran Latisha Matter Latisha Matter -Primary Dressing Covered/Secured with Dry Gauze, Dry Gauze, Secured with Secured with Tape Tape -Other Covering -Aquacel AG 4x4 -Promogran Latisha Matter 1 1 Bilateral -Compression Wrap Silvestre Wrap -Other 6 silvestre wrap Right -Compression Wrap Left -Compression Wrap -Other Treatment Response Pain Scale: 0-10 Numeric Is Patient Pain Free? Yes Yes WC - Visit Discharge Discharge Condition Stable Unstable Ambulatory Status Ambulatory Ambulatory Transportation Private Auto Medication Reconcilliation completed & Yes provided to patient/care provider Clinical Summary of Care Provided Yes Notes: Patient went to stand up to leave and stated her asthma is acting up and appeared with slightly labored breathing. Asked patient to sit down and use her inhaler if she had one in her purse. 2 hits of her albuterol was used and rechecked her vital signs with BP 180/95 and pulse 64. Patient was 96- 97% on Room air . Blood sugar was 181 and a glucerna was provided. Hilda Snell [employer] INST[employer] AND REPAIRER looked at her ears since patient complained of right ear heaviness. Some fluid was seen and patient was encouraged to take OTC zyrtec or claritin with her singulair. Patient was then wheelchaired out to waiting room and her dad was in the car to drive her home. Patient was able to ambulate to her car without difficulty. Assessment/Plan Assessment/Plan (1) Chronic ulcer of left leg with fat layer exposed: CODE(S): L97.922 - Non-pressure chronic ulcer of unspecified part of left lower leg with fat layer exposed (2) Wound of right lower extremity: CODE(S): S81.801A - Unspecified open wound, right lower leg, initial encounter QUALIFIERS: Encounter type: initial encounter Qualified Code(s): S81.801A - Unspecified open wound, right lower leg, initial encounter (3) Edema of both lower extremities: CODE(S): R60.0 - Localized edema (4) Venous insufficiency (chronic) (peripheral): CODE(S): I87.2 - Venous insufficiency (chronic) (peripheral) (5) Diabetes mellitus type 2, uncontrolled, with complications: CODE(S): E11.8 - Type 2 diabetes mellitus with unspecified complications; E11.65 - Type 2 diabetes mellitus with hyperglycemia PLAN: Plan Patient was evaluated at the wound healing center today. Wound care to the left anterior leg ulcer is washing ulcer with soap and water, rinse with Dakins 0.25%, then rinse with water. Apply moistened Latisha covered with gauze daily. Will see if rinsing with Dakins will help minimize bacterial growth. Compression - Double SILVESTRE wrap. Ordered Circaid stocking for compression. Her insurance will not cover them. She is not physically able to get 30-40 mmHg compression stockings on her self. She has purchased compression stockings with 8-15 mmHg. Will have her wear them both on her left leg so she is getting 15-30 mmHg. Instructed her how to place them. She states they are too short and she would like to get a new pair of stockings but cannot afford them at this time. Discussed with her that if she does not consistently wear compression, she will continue to have edema issue which can lead to skin breakdown. She verbalizes understanding. Instructed her that she may take her compression off at bedtime when she is in her bed and then place it back on first thing in the morning. Encouraged diet low in carbohydrates and high in protein. Venous study from 02/10/22 showed Left small saphenous vein was patent and incompetent. The rest of the study was normal. Arterial study from 02/10/22 showed Right MARILU 1.06 and Left MARILU 1.07. Waveforms were Triphasic bilaterally. No signs of arterial disease. Wound culture from 03/08/23 positive for MSSA. She was started on Doxycycline due to her PCN allergy. Wound culture obtained 04/26/23 which was positive for Staphylococcus aureus that was resistant to Doxycycline and Bactrim, she is allergic to PCN and cephalosporins and she is on several medications that interact with Linezolid, therefore insurance approval was obtained to start her on a new medication Nuzyra which she has completed. She states that she sleeps in a chair because her bed is so uncomfortable. Encouraged her to try to lay flat for 20 minutes at a time several times a day to help with her edema. *When she got up to leave, she felt light headed and dizzy. Her blood sugar was 181. Her blood pressure was elevated but she had just used her albuterol inhaler. She then stated her right ear has been bothering her. She has some fluid behind her right TM, no erythema. Encouraged her to use her flonase nasal spray and she can try adding Loratadine to see if this would help. She is stable on her feet. Instructed her to follow up with her PCP or go to ED if her symptoms worse or do not improve. Follow up one week.
[2023-07-19 12:28] LABS: Bedside Glucose 181 mg/dL (74-106)
== END 2023-07-20 23:59 | disposition home or self-care (01) ==
LOC: WC 09:30
PROVIDERS: PCP Internal Medicine; Referring Provider Internal Medicine; Visit Provider Nurse Practitioner Family
DX: L97.922 Non-pressure chronic ulcer of unspecified part of left lower leg with fat layer exposed (principal); J44.9 Chronic obstructive pulmonary disease, unspecified; E11.65 Type 2 diabetes mellitus with hyperglycemia; E11.59 Type 2 diabetes mellitus with other circulatory complications; R60.0 Localized edema; I87.2 Venous insufficiency (chronic) (peripheral); I10 Essential (primary) hypertension; I89.0 Lymphedema, not elsewhere classified; S81.801A Unspecified open wound, right lower leg, initial encounter
CPT/HCPCS: 11042; 82962

== ENCOUNTER 2023-08-16 09:30 | Outpatient (RCR) | payer MEDICAID, SELFPAY ==
[2023-07-21 00:11] VITALS: BP 187/65; PULSE 68; RESP 22; TEMP 36.8; BMI 49.7
[2023-07-26 09:38] VITALS: BP 153/68; PULSE 63; RESP 18; BMI 49.7
--- NOTE | 2023-07-26 12:42 | PN.PCM_ITS ---
History of Present Illness Date of Service: 07/26/23 Chief Complaint: Left anterior leg ulcer History of Wound: 57-year-old female who originally had a traumatic hematoma in 2012 to her left anterior leg and had an operative debridement and eventually had skin graft placement. She has been seen periodically at the wound center for chronic ulcers to her legs over the years. She has most recently been seeing Dr. Chang for her wound care. Her most significant issue at this time is her edema/lymphedema. When her edema becomes severe, she develops ulcers on her legs. She has a history of T2D, COPD, chronic venous insufficiency, cellulitis, chest pain, left ventricular aneurysm, HTN, Bipolar, ADHD, ABRAM, chronic pain syndrome, GERD. Wound culture from 03/08/23 positive for Staphylococcus aureus and she was started on Doxycycline. Wound culture obtained 04/26/23 which was positive for Staphylococcus aureus that was resistant to Doxycycline and Bactrim, she is allergic to PCN and cephalosporins and she is on several medications that interact with Linezolid, therefore insurance approval was obtained to start her on a new medication Nuzyra which she started 05/02/23. She completed it Nuzyra but experienced nausea and vomiting with it. She currently denies fever, chills. Progress of Wound: Left anterior leg ulcer with no improvement. A wound culture was obtained today.? A positive culture will necessitate antibiotic therapy. Her wound on her right anterior leg remains healed. Objective Data Objective Data Vital Signs: Vital Signs Temp Pulse Resp BP O2 Del Method 98.3 F 63 18 153/68 H Room Air 07/21/23 00:11 07/26/23 09:38 07/26/23 09:38 07/26/23 09:38 07/26/23 09:38 Oxygen Delivery Method Room Air Weight: 299 lb Body Mass Index (BMI) 49.7 Charges/Coding Procedures Integumentary 111xxx-113xx: 12698 Joie subq tissue 20 sq cm/< Debridement Note Debridement Note Wound debrided: Anterior leg proximal ulcer Laterality: Left Wound Grade/Stage: Stage II Type of Debridement: Excisional debridement Anesthesia Used: 5% Lidocaine Gel Depth: Down to and including healthy tissue and in the subcutaneous layer Percentage of wound debrided: 100 Instrument Used: 5mm curette Tissue Removed: Devitalized tissue and slough Severity: Limited To Skin Breakdown Amount of bleeding with debridement: Mild Bleeding Controlled with: Pressure and Compression and gauze Patient tolerated procedure: Patient tolerated procedure well Post-Debridement Measurements and Additional Note: Post-Debridement Measurements/Treatment NILO - Nurse 1 - General Ulcer Assessment Start: 07/26/23 09:35 Freq: Status: Active Protocol: PERRY Activity Type Activity Date Activity User E-sign Co-sign Detail Recorded Client Recorded Date Recorded By Document 07/26/23 09:38 [id number] 07/26/23 09:45 07/26/23 09:38 WC - Today's Visit Information Type of service Follow-up Visit (Physician/SHAREPOINT APPLICATION DEVELOPER ) Arrival Mode Ambulatory Patient Identification Verified (Name & Yes ) Finger Stick Blood Sugar(mg/dl) (if 135 indicated): Blood Sugar Stated by Patient Height and Weight Body Mass Index (BMI) 49.7 BMI Classification Obese Vital Signs Pulse Rate (60-100) 63 Pulse Location Monitor Respiratory Rate (12-18) 18 Respiratory rate source Observation Oxygen Delivery Method Room Air Blood Pressure (90/60-120/80) 153/68 H Blood Pressure Mean (mm Hg) 96 Source Monitor Position Semi-Fowlers Blood Pressure Location Left Forearm History Since Last Visit- (Skip if this is Patient's initial visit) Have you changed medications since your No last visit? Any new allergies or adverse reactions No Had a fall/change in ADL's that may No increase risk of falls Signs or symptoms of abuse and/or No neglect since last visit Have you been in the hospital since your No last visit? Has dressing in place as prescribed Yes Has compression in place as prescribed Yes Has offloadiing in place as prescribed No Experienced any changes in pain level or No management Left Footwear Regular Shoe Right Footwear Regular Shoe Pain Scale: 0-10 Numeric Is Patient Pain Free? No LLE -Description Aching -Intensity 6 -Alleviating Factors/Interventions Medication NILO - Nurse 1 - General Ulcer Measurement Start: 07/26/23 09:35 Freq: Status: Active Protocol: Activity Type Activity Date Activity User E-sign Co-sign Detail Recorded Client Recorded Date Recorded By Document 07/26/23 09:38 KW [id number] 07/26/23 09:45 07/26/23 09:38 Wound Center Nurse 1 #7- L TORRES -Current Size (cm) - Length 2.2 -Current Size (cm) - Width 1.3 -Current Size (cm) - Depth 0.2 -Total Square Cm 2.86 -Wound Margin Distinct, Outline Attached -Granulation Amt Large (67-100%) -Granulation Quality Red -Necrosis Amt Small (1-33%) -Necrotic Tissue Type Adherent Slough -Texture (Verónica-wound Skin Appearance) Assessed -Moisture (Verónica-wound Skin Appearance) Assessed -Color (Verónica-wound Skin Appearance) Assessed -Temperature (Verónica-wound Skin No Abnormality Appearance) (Pt Warm) -Ulcer Cleansing Rinsed/ Irrigated with Saline -Foul Odor after Cleansing No -Anesthetic Used 5% Lidocaine Gel Left Calf (cm) 51 Left Ankle (cm) 24 WC - Nurse 2 - General Ulcer CM Notes Start: 07/26/23 09:35 Freq: Status: Active Protocol: Activity Type Activity Date Activity User E-sign Co-sign Detail Recorded Client Recorded Date Recorded By Document 07/26/23 09:53 [id number] 07/26/23 09:59 07/26/23 09:53 Wound Center Nurse 2 #7- L TORRES -Time 09:53 -Correct Patient Yes -Correct Side, Site, Position Yes -Correct Procedure Yes -Procedure Performed Yes -Type of Procedure Debridement -Clinical Debridement Subcutaneous -Tissue Removed Subcutaneous -Post Debridement (cm) - Length 1.9 -Post Debridement (cm) - Width 1.3 -Post Debridement (cm) - Depth 0.2 -Total Square (Post) (cm) 2.47 -Area of Debridement (cm) - Length 1.9 -Area of Debridement (cm) - Width 1.3 -Total Square (Area) (cm) 2.47 -Tunneling No -Undermining/Tunneling No -Circular Undermining No -Wound/Ulcer Outcome Not Healed -Ulcer Cleansing Rinsed/ Irrigated with Saline -Foul Odor after Cleansing No -Bioengineered Tissue No -Bleeding Controlled with Pressure -Treatment Response Procedure Tolerated Well -Offloading No -Debridement - Subq, 1st 20sq cm Yes Pain Scale: 0-10 Numeric Is Patient Pain Free? Yes NILO - Nurse 3 - General Ulcer D/C NN Start: 07/26/23 09:35 Freq: Status: Active Protocol: Activity Type Activity Date Activity User E-sign Co-sign Detail Recorded Client Recorded Date Recorded By Document 07/26/23 10:09 ANNIE [id number] 07/26/23 10:10 ANNIE 07/26/23 10:09 Wound Care Center Nurse 3 #7- L TORRES -Ulcer Cleansing Rinsed/ Irrigated with Saline -Foul Odor after Cleansing No -Primary Dressing Applied Mepilex Border, Promogran Latisha Matter -Mepilex Border 1 -Promogran Latisha Matter 1 BLE -Compression Wrap Silvestre Wrap Pain Scale: 0-10 Numeric Is Patient Pain Free? Yes WC - Visit Discharge Discharge Condition Stable Ambulatory Status Ambulatory Transportation Private Auto Medication Reconcilliation completed & No provided to patient/care provider Clinical Summary of Care Provided Yes Assessment/Plan Assessment/Plan (1) Chronic ulcer of left leg with fat layer exposed: CODE(S): L97.922 - Non-pressure chronic ulcer of unspecified part of left lower leg with fat layer exposed (2) Wound of right lower extremity: CODE(S): S81.801A - Unspecified open wound, right lower leg, initial encounter QUALIFIERS: Encounter type: initial encounter Qualified Code(s): S81.801A - Unspecified open wound, right lower leg, initial encounter (3) Edema of both lower extremities: CODE(S): R60.0 - Localized edema (4) Venous insufficiency (chronic) (peripheral): CODE(S): I87.2 - Venous insufficiency (chronic) (peripheral) (5) Diabetes mellitus type 2, uncontrolled, with complications: CODE(S): E11.8 - Type 2 diabetes mellitus with unspecified complications; E11.65 - Type 2 diabetes mellitus with hyperglycemia PLAN: Plan Patient was evaluated at the wound healing center today. Wound care to the left anterior leg ulcer is washing ulcer with soap and water, rinse with Dakins 0.25%, then rinse with water. Apply moistened Latisha covered with gauze or [place] SAP daily. She would benefit from Epifix, an advanced wound care product to help expedite the healing process. A wound culture was obtained today.? A positive culture will necessitate antibiotic therapy. Compression - Double SILVESTRE wrap. Ordered Circaid stocking for compression. Her insurance will not cover them. She is not physically able to get 30-40 mmHg compression stockings on her self. She has purchased compression stockings with 8-15 mmHg. Will have her wear them both on her left leg so she is getting 15-30 mmHg. Instructed her how to place them. She states they are too short and she would like to get a new pair of stockings but cannot afford them at this time. Discussed with her that if she does not consistently wear compression, she will continue to have edema issue which can lead to skin breakdown. She verbalizes understanding. Instructed her that she may take her compression off at bedtime when she is in her bed and then place it back on first thing in the morning. Encouraged diet low in carbohydrates and high in protein. Venous study from 02/10/22 showed Left small saphenous vein was patent and incompetent. The rest of the study was normal. Arterial study from 02/10/22 showed Right MARILU 1.06 and Left MARILU 1.07. Waveforms were Triphasic bilaterally. No signs of arterial disease. Wound culture from 03/08/23 positive for MSSA. She was started on Doxycycline due to her PCN allergy. Wound culture obtained 04/26/23 which was positive for Staphylococcus aureus that was resistant to Doxycycline and Bactrim, she is allergic to PCN and cephalosporins and she is on several medications that interact with Linezolid, therefore insurance approval was obtained to start her on a new medication Nuzyra which she has completed. She states that she sleeps in a chair because her bed is so uncomfortable. Encouraged her to try to lay flat for 20 minutes at a time several times a day to help with her edema. Follow up one week.
[2023-08-02 10:04] VITALS: BP 145/86; PULSE 111; RESP 20; TEMP 36.6; BMI 49.7
--- NOTE | 2023-08-02 11:20 | PN.PCM_ITS ---
History of Present Illness Date of Service: 08/02/23 Chief Complaint: Left anterior leg ulcer History of Wound: 57-year-old female who originally had a traumatic hematoma in 2012 to her left anterior leg and had an operative debridement and eventually had skin graft placement. She has been seen periodically at the wound center for chronic ulcers to her legs over the years. She has most recently been seeing Dr. Chang for her wound care. Her most significant issue at this time is her edema/lymphedema. When her edema becomes severe, she develops ulcers on her legs. She has a history of T2D, COPD, chronic venous insufficiency, cellulitis, chest pain, left ventricular aneurysm, HTN, Bipolar, ADHD, ABRAM, chronic pain syndrome, GERD. Wound culture from 03/08/23 positive for Staphylococcus aureus and she was started on Doxycycline. Wound culture obtained 04/26/23 which was positive for Staphylococcus aureus that was resistant to Doxycycline and Bactrim, she is allergic to PCN and cephalosporins and she is on several medications that interact with Linezolid, therefore insurance approval was obtained to start her on a new medication Nuzyra which she started 05/02/23. She completed it Nuzyra but experienced nausea and vomiting with it. Wound culture obtained 07/26/23 which was positive for MSSA. With all her allergies and the medications that she is on, will refer her to infectious disease to for antibiotic coverage. She currently denies fever, chills. Progress of Wound: Left anterior leg ulcer with no improvement, it is stable. Wound culture obtained 07/26/23 which was positive for MSSA but she is allergic to the medications that will cover this organism. Will refer her to ID. Objective Data Objective Data Vital Signs: Vital Signs Temp Pulse Resp BP O2 Del Method 97.8 F 111 H 20 H 145/86 H Room Air 08/02/23 10:04 08/02/23 10:04 08/02/23 10:04 08/02/23 10:04 07/26/23 09:38 Oxygen Delivery Method Room Air Weight: 299 lb Body Mass Index (BMI) 49.7 Lab / Micro Data Micro: Microbiology 07/26/23 10:00 Wound - Leg, Left Gram Stain - Final 07/26/23 10:00 Wound - Leg, Left Wound Culture - Final Staphylococcus aureus 07/26/23 10:00 Wound - Leg, Left Anaerobic Culture - Final No anaerobic bacteria isolated. Charges/Coding Procedures Integumentary 111xxx-113xx: 23564 Joie subq tissue 20 sq cm/< Debridement Note Debridement Note Wound debrided: Anterior leg proximal ulcer Laterality: Left Wound Grade/Stage: Stage II Type of Debridement: Excisional debridement Anesthesia Used: 5% Lidocaine Gel Depth: Down to and including healthy tissue and in the subcutaneous layer Percentage of wound debrided: 100 Instrument Used: 5mm curette Tissue Removed: Devitalized tissue and slough Severity: Limited To Skin Breakdown Amount of bleeding with debridement: Mild Bleeding Controlled with: Pressure and Compression and gauze Patient tolerated procedure: Patient tolerated procedure well Post-Debridement Measurements and Additional Note: Post-Debridement Measurements/Treatment - Nurse 1 - General Ulcer Assessment Start: 07/26/23 09:35 Freq: Status: Active Protocol: PERRY Activity Type Activity Date Activity User E-sign Co-sign Detail Recorded Client Recorded Date Recorded By Document 07/26/23 09:38 KW [id number] 07/26/23 09:45 KW Document 08/02/23 10:04 PL [id number] 08/02/23 10:05 PL 07/26/23 08/02/23 09:38 10:04 - Today's Visit Information Type of service Follow-up Visit Follow-up Visit (Physician/CHEMICAL OPERATIONS SPECIALIST (Physician/CHEMICAL OPERATIONS SPECIALIST ) ) Arrival Mode Ambulatory Ambulatory Transfer Assistance None Patient Identification Verified (Name & Yes Yes ) Patient Requires Transmission-Based No Precautions Safety Precautions NA Finger Stick Blood Sugar(mg/dl) (if 135 indicated): Blood Sugar Stated by Patient Height and Weight Body Mass Index (BMI) 49.7 49.7 BMI Classification Obese Obese Vital Signs Temperature (97.8 F-99.1 F) 97.8 F Temperature Source Temporal Pulse Rate (60-100) 63 111 H Pulse Location Monitor Respiratory Rate (12-18) 18 20 H Respiratory rate source Observation Oxygen Delivery Method Room Air Blood Pressure (90/60-120/80) 153/68 H 145/86 H Blood Pressure Mean (mm Hg) 96 105 Source Monitor Position Semi-Fowlers Blood Pressure Location Left Forearm History Since Last Visit- (Skip if this is Patient's initial visit) Have you changed medications since your No last visit? Any new allergies or adverse reactions No Had a fall/change in ADL's that may No increase risk of falls Signs or symptoms of abuse and/or No neglect since last visit Have you been in the hospital since your No last visit? Has dressing in place as prescribed Yes Has compression in place as prescribed Yes Has offloadiing in place as prescribed No Experienced any changes in pain level or No management Left Footwear Regular Shoe Right Footwear Regular Shoe Pain Scale: 0-10 Numeric Is Patient Pain Free? No Yes LLE -Description Aching -Intensity 6 -Alleviating Factors/Interventions Medication - Nurse 1 - General Ulcer Measurement Start: 07/26/23 09:35 Freq: Status: Active Protocol: Activity Type Activity Date Activity User E-sign Co-sign Detail Recorded Client Recorded Date Recorded By Document 07/26/23 09:38 [id number] 07/26/23 09:45 07/26/23 09:38 Wound Center Nurse 1 #7- L TORRES -Current Size (cm) - Length 2.2 -Current Size (cm) - Width 1.3 -Current Size (cm) - Depth 0.2 -Total Square Cm 2.86 -Wound Margin Distinct, Outline Attached -Granulation Amt Large (67-100%) -Granulation Quality Red -Necrosis Amt Small (1-33%) -Necrotic Tissue Type Adherent Slough -Texture (Verónica-wound Skin Appearance) Assessed -Moisture (Verónica-wound Skin Appearance) Assessed -Color (Verónica-wound Skin Appearance) Assessed -Temperature (Verónica-wound Skin No Abnormality Appearance) (Pt Warm) -Ulcer Cleansing Rinsed/ Irrigated with Saline -Foul Odor after Cleansing No -Anesthetic Used 5% Lidocaine Gel Left Calf (cm) 51 Left Ankle (cm) 24 - Nurse 2 - General Ulcer CM Notes Start: 07/26/23 09:35 Freq: Status: Active Protocol: Activity Type Activity Date Activity User E-sign Co-sign Detail Recorded Client Recorded Date Recorded By Document 07/26/23 09:53 [id number] 07/26/23 09:59 Document 08/02/23 10:25 [id number] 08/02/23 10:27 07/26/23 08/02/23 09:53 10:25 Wound Center Nurse 2 #7- L TORRES -Time 09:53 10:26 -Correct Patient Yes Yes -Correct Side, Site, Position Yes Yes -Correct Procedure Yes Yes -Procedure Performed Yes Yes -Type of Procedure Debridement Debridement -Clinical Debridement Subcutaneous Subcutaneous -Tissue Removed Subcutaneous Subcutaneous -Post Debridement (cm) - Length 1.9 1.8 -Post Debridement (cm) - Width 1.3 1.2 -Post Debridement (cm) - Depth 0.2 0.2 -Total Square (Post) (cm) 2.47 2.16 -Area of Debridement (cm) - Length 1.9 1.8 -Area of Debridement (cm) - Width 1.3 1.2 -Total Square (Area) (cm) 2.47 2.16 -Tunneling No No -Undermining/Tunneling No No -Circular Undermining No No -Wound/Ulcer Outcome Not Healed Not Healed -Ulcer Cleansing Rinsed/ Rinsed/ Irrigated with Irrigated with Saline Saline -Foul Odor after Cleansing No No -Bioengineered Tissue No No -Bleeding Controlled with Pressure Pressure -Treatment Response Procedure Procedure Tolerated Well Tolerated Well -Offloading No No -Debridement - Subq, 1st 20sq cm Yes Yes Pain Scale: 0-10 Numeric Is Patient Pain Free? Yes Yes - Nurse 3 - General Ulcer D/C NN Start: 07/26/23 09:35 Freq: Status: Active Protocol: Activity Type Activity Date Activity User E-sign Co-sign Detail Recorded Client Recorded Date Recorded By Document 07/26/23 10:09 [id number] 07/26/23 10:10 07/26/23 10:09 Wound Care Center Nurse 3 #7- L TORRES -Ulcer Cleansing Rinsed/ Irrigated with Saline -Foul Odor after Cleansing No -Primary Dressing Applied Mepilex Border, Promogran Latisha Matter -Mepilex Border 1 -Promogran Latisha Matter 1 BLE -Compression Wrap Silvestre Wrap Pain Scale: 0-10 Numeric Is Patient Pain Free? Yes - Visit Discharge Discharge Condition Stable Ambulatory Status Ambulatory Transportation Private Auto Medication Reconcilliation completed & No provided to patient/care provider Clinical Summary of Care Provided Yes Assessment/Plan Assessment/Plan (1) Chronic ulcer of left leg with fat layer exposed: CODE(S): L97.922 - Non-pressure chronic ulcer of unspecified part of left lower leg with fat layer exposed (2) Wound of right lower extremity: CODE(S): S81.801A - Unspecified open wound, right lower leg, initial encounter QUALIFIERS: Encounter type: initial encounter Qualified Code(s): S81.801A - Unspecified open wound, right lower leg, initial encounter (3) Edema of both lower extremities: CODE(S): R60.0 - Localized edema (4) Venous insufficiency (chronic) (peripheral): CODE(S): I87.2 - Venous insufficiency (chronic) (peripheral) (5) Diabetes mellitus type 2, uncontrolled, with complications: CODE(S): E11.8 - Type 2 diabetes mellitus with unspecified complications; E11.65 - Type 2 diabetes mellitus with hyperglycemia PLAN: Plan Patient was evaluated at the wound healing center today. Wound care to the left anterior leg ulcer is washing ulcer with soap and water, rinse with Dakins 0.25%, then rinse with water. Apply moistened Latisha covered with gauze or [place] SAP daily. She has been approved for Epifix, but need to treat her positive wound culture of MSSA from 07/29/23. With all her allergies, am referring her to ID for treatment. Her last wound culture was also MSSA and she was treated with Nuzyra but she had issues with nausea and vomiting with that medication. Compression - Double SILVESTRE wrap. Ordered Circaid stocking for compression. Her insurance will not cover them. She is not physically able to get 30-40 mmHg compression stockings on her self. She has purchased compression stockings with 8-15 mmHg. Will have her wear them both on her left leg so she is getting 15-30 mmHg. Instructed her how to place them. She states they are too short and she would like to get a new pair of stockings but cannot afford them at this time. Discussed with her that if she does not consistently wear compression, she will continue to have edema issue which can lead to skin breakdown. She verbalizes understanding. Instructed her that she may take her compression off at bedtime when she is in her bed and then place it back on first thing in the morning. Encouraged diet low in carbohydrates and high in protein. Venous study from 02/10/22 showed Left small saphenous vein was patent and incompetent. The rest of the study was normal. Arterial study from 02/10/22 showed Right MARILU 1.06 and Left MARILU 1.07. Waveforms were Triphasic bilaterally. No signs of arterial disease. Wound culture from 03/08/23 positive for MSSA. She was started on Doxycycline due to her PCN allergy. Wound culture obtained 04/26/23 which was positive for Staphylococcus aureus that was resistant to Doxycycline and Bactrim, she is allergic to PCN and cephal osporins and she is on several medications that interact with Linezolid, therefore insurance approval was obtained to start her on a new medication Nuzyra which she has completed. She states that she sleeps in a chair because her bed is so uncomfortable. Encouraged her to try to lay flat for 20 minutes at a time several times a day to help with her edema. Follow up two weeks due to maintenance at the facility.
[2023-08-16 09:32] VITALS: BP 140/67; PULSE 81; RESP 18; TEMP 36.1; BMI 49.7
--- NOTE | 2023-08-16 11:14 | PCM.WC.PN ---
History of Present Illness Date of Service: 08/16/23 Chief Complaint: Left anterior leg ulcer History of Wound: 57-year-old female who originally had a traumatic hematoma in 2012 to her left anterior leg and had an operative debridement and eventually had skin graft placement. She has been seen periodically at the wound center for chronic ulcers to her legs over the years. She has most recently been seeing Dr. Chang for her wound care. Her most significant issue at this time is her edema/lymphedema. When her edema becomes severe, she develops ulcers on her legs. She has a history of T2D, COPD, chronic venous insufficiency, cellulitis, chest pain, left ventricular aneurysm, HTN, Bipolar, ADHD, ABRAM, chronic pain syndrome, GERD. Wound culture from 03/08/23 positive for Staphylococcus aureus and she was started on Doxycycline. Wound culture obtained 04/26/23 which was positive for Staphylococcus aureus that was resistant to Doxycycline and Bactrim, she is allergic to PCN and cephalosporins and she is on several medications that interact with Linezolid, therefore insurance approval was obtained to start her on a new medication Nuzyra which she started 05/02/23. She completed it Nuzyra but experienced nausea and vomiting with it. Wound culture obtained 07/26/23 which was positive for MSSA. With all her allergies and the medications that she is on, will refer her to infectious disease to for antibiotic coverage. Wound Care - She has been approved for Epifix. She currently denies fever, chills. Progress of Wound: Left anterior leg ulcer is stable. Wound culture obtained 07/26/23 which was positive for MSSA but she is allergic to the medications that will cover this organism. She has an appointment next week with ID. Objective Data Objective Data Vital Signs: Vital Signs Temp Pulse Resp BP O2 Del Method 96.9 F L 81 18 140/67 H Room Air 08/16/23 09:32 08/16/23 09:32 08/16/23 09:32 08/16/23 09:32 08/16/23 09:32 Oxygen Delivery Method Room Air Weight: 299 lb Body Mass Index (BMI) 49.7 Lab / Micro Data Micro: Microbiology 07/26/23 10:00 Wound - Leg, Left Gram Stain - Final 07/26/23 10:00 Wound - Leg, Left Wound Culture - Final Staphylococcus aureus 07/26/23 10:00 Wound - Leg, Left Anaerobic Culture - Final No anaerobic bacteria isolated. Charges/Coding Procedures Integumentary 150xxx-152xx: 02198 Skin sub graft trnk/arm/leg Debridement Note Debridement Note Wound debrided: Anterior leg proximal ulcer Laterality: Left Wound Grade/Stage: Stage II Type of Debridement: Excisional debridement Anesthesia Used: 5% Lidocaine Gel Depth: Down to and including healthy tissue and in the subcutaneous layer Percentage of wound debrided: 100 Instrument Used: 5mm curette Tissue Removed: Devitalized tissue and slough Severity: Limited To Skin Breakdown Amount of bleeding with debridement: Mild Bleeding Controlled with: Pressure and Compression and gauze Patient tolerated procedure: Patient tolerated procedure well Post-Debridement Measurements and Additional Note: Post-Debridement Measurements/Treatment - Nurse 1 - General Ulcer Assessment Start: 07/26/23 09:35 Freq: Status: Active Protocol: PERRY Activity Type Activity Date Activity User E-sign Co-sign Detail Recorded Client Recorded Date Recorded By Document 07/26/23 09:38 KW [id number] 07/26/23 09:45 KW Document 08/02/23 10:04 PL [id number] 08/02/23 10:05 PL Document 08/16/23 09:32 KW Desktop 08/16/23 09:41 KW 07/26/23 08/02/23 08/16/23 09:38 10:04 09:32 - Today's Visit Information Type of service Follow-up Visit Follow-up Visit Follow-up Visit (Physician/ENGINEER EXHAUSTER (Physician/ENGINEER EXHAUSTER (Physician/ENGINEER EXHAUSTER ) ) ) Arrival Mode Ambulatory Ambulatory Ambulatory Transfer Assistance None Patient Identification Verified (Name & Yes Yes ) Patient Requires Transmission-Based No Precautions Safety Precautions NA Finger Stick Blood Sugar(mg/dl) (if 135 226 indicated): Blood Sugar Stated by Stated by Patient Patient Height and Weight Body Mass Index (BMI) 49.7 49.7 49.7 BMI Classification Obese Obese Obese Vital Signs Temperature (97.8 F-99.1 F) 97.8 F 96.9 F L Temperature Source Temporal Temporal Pulse Rate (60-100) 63 111 H 81 Pulse Location Monitor Monitor Respiratory Rate (12-18) 18 20 H 18 Respiratory rate source Observation Ausculation Oxygen Delivery Method Room Air Room Air Blood Pressure (90/60-120/80) 153/68 H 145/86 H 140/67 H Blood Pressure Mean (mm Hg) 96 105 91 Source Monitor Monitor Position Semi-Fowlers Semi-Fowlers Blood Pressure Location Left Forearm Left Forearm History Since Last Visit- (Skip if this is Patient's initial visit) Have you changed medications since your No No last visit? Any new allergies or adverse reactions No No Had a fall/change in ADL's that may No No increase risk of falls Signs or symptoms of abuse and/or No No neglect since last visit Have you been in the hospital since your No No last visit? Has dressing in place as prescribed Yes Yes Has compression in place as prescribed Yes Yes Has offloadiing in place as prescribed No No Experienced any changes in pain level or No No management Left Footwear Regular Shoe Regular Shoe Right Footwear Regular Shoe Regular Shoe Pain Scale: 0-10 Numeric Is Patient Pain Free? No Yes No LLE -Description Aching Dull,Aching -Intensity 6 5 -Alleviating Factors/Interventions Medication Medication WC - Nurse 1 - General Ulcer Measurement Start: 07/26/23 09:35 Freq: Status: Active Protocol: Activity Type Activity Date Activity User E-sign Co-sign Detail Recorded Client Recorded Date Recorded By Document 07/26/23 09:38 KW [id number] 07/26/23 09:45 KW Document 08/16/23 09:32 KW Desktop 08/16/23 09:41 KW 07/26/23 08/16/23 09:38 09:32 Wound Center Nurse 1 #7- L TORRES -Current Size (cm) - Length 2.2 2.3 -Current Size (cm) - Width 1.3 1.4 -Current Size (cm) - Depth 0.2 0.2 -Total Square Cm 2.86 3.22 -Wound Margin Distinct, Distinct, Outline Outline Attached Attached -Granulation Amt Large (67-100%) Medium (34-66%) -Granulation Quality Red Red -Necrosis Amt Small (1-33%) Small (1-33%) -Necrotic Tissue Type Adherent Slough Adherent Slough -Texture (Verónica-wound Skin Appearance) Assessed Assessed -Moisture (Verónica-wound Skin Appearance) Assessed Assessed -Color (Verónica-wound Skin Appearance) Assessed Assessed, Erythema -Temperature (Verónica-wound Skin No Abnormality No Abnormality Appearance) (Pt Warm) (Pt Warm) -Ulcer Cleansing Rinsed/ Soap and Water Irrigated with Saline -Foul Odor after Cleansing No -Anesthetic Used 5% Lidocaine 5% Lidocaine Gel Gel Left Calf (cm) 51 51.5 Left Ankle (cm) 24 21.5 WC - Nurse 2 - General Ulcer CM Notes Start: 07/26/23 09:35 Freq: Status: Active Protocol: Activity Type Activity Date Activity User E-sign Co-sign Detail Recorded Client Recorded Date Recorded By Document 07/26/23 09:53 [id number] 07/26/23 09:59 Document 08/02/23 10:25 [id number] 08/02/23 10:27 Document 08/16/23 09:58 Desktop 08/16/23 10:04 07/26/23 08/02/23 08/16/23 09:53 10:25 09:58 Wound Center Nurse 2 #7- L TORRES -Time 09:53 10:26 09:58 -Correct Patient Yes Yes Yes -Correct Side, Site, Position Yes Yes Yes -Correct Procedure Yes Yes Yes -Procedure Performed Yes Yes Yes -Type of Procedure Debridement Debridement Debridement -Clinical Debridement Subcutaneous Subcutaneous Subcutaneous -Tissue Removed Subcutaneous Subcutaneous Subcutaneous -Post Debridement (cm) - Length 1.9 1.8 2.3 -Post Debridement (cm) - Width 1.3 1.2 1.8 -Post Debridement (cm) - Depth 0.2 0.2 0.2 -Total Square (Post) (cm) 2.47 2.16 4.14 -Area of Debridement (cm) - Length 1.9 1.8 2.3 -Area of Debridement (cm) - Width 1.3 1.2 1.8 -Total Square (Area) (cm) 2.47 2.16 4.14 -Tunneling No No No -Undermining/Tunneling No No No -Circular Undermining No No No -Wound/Ulcer Outcome Not Healed Not Healed Not Healed -Ulcer Cleansing Rinsed/ Rinsed/ Rinsed/ Irrigated with Irrigated with Irrigated with Saline Saline Saline -Foul Odor after Cleansing No No No -Bioengineered Tissue No No Yes -Type of Bioengineered Tissue Epifix -Expiration Date 04/20/28 -Product Lot Number [id number] -Percent Used 100 -Lot number of Saline Used [id number] -Bleeding Controlled with Pressure Pressure Pressure -Treatment Response Procedure Procedure Procedure Tolerated Well Tolerated Well Tolerated Well -Offloading No No No -Debridement - Subq, 1st 20sq cm Yes Yes No -Apply Skin Sub - 1st 25 sq cm - Legs 1 -Epifix (per sq cm) 4 Pain Scale: 0-10 Numeric Is Patient Pain Free? Yes Yes Yes - Nurse 3 - General Ulcer D/C NN Start: 07/26/23 09:35 Freq: Status: Active Protocol: Activity Type Activity Date Activity User E-sign Co-sign Detail Recorded Client Recorded Date Recorded By Document 07/26/23 10:09 [id number] 07/26/23 10:10 KW Document 08/16/23 10:04 Desktop 08/16/23 10:05 07/26/23 08/16/23 10:09 10:04 Wound Care Center Nurse 3 #7- L TORRES -Ulcer Cleansing Rinsed/ Rinsed/ Irrigated with Irrigated with Saline Saline -Foul Odor after Cleansing No -Primary Dressing Applied Mepilex Border, Mepilex Border Promogran Latisha Matter -Mepilex Border 1 1 -Promogran Latisha Matter 1 BLE -Compression Wrap Silvestre Wrap Silvestre Wrap Pain Scale: 0-10 Numeric Is Patient Pain Free? Yes Yes - Visit Discharge Discharge Condition Stable Stable Ambulatory Status Ambulatory Ambulatory Transportation Private Auto Private Auto Medication Reconcilliation completed & No Yes provided to patient/care provider Clinical Summary of Care Provided Yes Yes Assessment/Plan Assessment/Plan (1) Chronic ulcer of left leg with fat layer exposed: CODE(S): L97.922 - Non-pressure chronic ulcer of unspecified part of left lower leg with fat layer exposed (2) Wound of right lower extremity: CODE(S): S81.801A - Unspecified open wound, right lower leg, initial encounter QUALIFIERS: Encounter type: initial encounter Qualified Code(s): S81.801A - Unspecified open wound, right lower leg, initial encounter (3) Edema of both lower extremities: CODE(S): R60.0 - Localized edema (4) Venous insufficiency (chronic) (peripheral): CODE(S): I87.2 - Venous insufficiency (chronic) (peripheral) (5) Diabetes mellitus type 2, uncontrolled, with complications: CODE(S): E11.8 - Type 2 diabetes mellitus with unspecified complications; E11.65 - Type 2 diabetes mellitus with hyperglycemia PLAN: Plan Patient was evaluated at the wound healing center today. Wound care to the left anterior leg ulcer - Epifix #1 applied today. 100% of the product was used. It was covered with a wound veil and secured with steri strips. The wound was covered with Mepilex. She may change the outer dressing as needed, instructed not to remove the wound veil and not to get the wound wet. Compression - Double SILVESTRE wrap. She has an appointment on 08/23/23 with ID to discuss her positive wound cultures. Ordered Circaid stocking for compression. Her insurance will not cover them. She is not physically able to get 30-40 mmHg compression stockings on her self. She has purchased compression stockings with 8-15 mmHg. Will have her wear them both on her left leg so she is getting 15-30 mmHg. Instructed her how to place them. She states they are too short and she would like to get a new pair of stockings but cannot afford them at this time. Discussed with her that if she does not consistently wear compression, she will continue to have edema issue which can lead to skin breakdown. She verbalizes understanding. Instructed her that she may take her compression off at bedtime when she is in her bed and then place it back on first thing in the morning. Encouraged diet low in carbohydrates and high in protein. Venous study from 02/10/22 showed Left small saphenous vein was patent and incompetent. The rest of the study was normal. Arterial study from 02/10/22 showed Right MARILU 1.06 and Left MARILU 1.07. Waveforms were Triphasic bilaterally. No signs of arterial disease. Wound culture from 03/08/23 positive for MSSA. She was started on Doxycycline due to her PCN allergy. Wound culture obtained 04/26/23 which was positive for Staphylococcus aureus that was resistant to Doxycycline and Bactrim, she is allergic to PCN and cephalosporins and she is on several medications that interact with Linezolid, therefore insurance approval was obtained to start her on a new medication Nuzyra which she has completed. She states that she sleeps in a chair because her bed is so uncomfortable. Encouraged her to try to lay flat for 20 minutes at a time several times a day to help with her edema. Follow up one week. Call or come in sooner if develop any concerns.
== END 2023-08-19 23:59 | disposition home or self-care (01) ==
LOC: WC 09:30
PROVIDERS: PCP Internal Medicine; Referring Provider Internal Medicine; Visit Provider Nurse Practitioner Family
DX: L97.922 Non-pressure chronic ulcer of unspecified part of left lower leg with fat layer exposed (principal); J44.9 Chronic obstructive pulmonary disease, unspecified; F31.9 Bipolar disorder, unspecified; E11.8 Type 2 diabetes mellitus with unspecified complications; I89.0 Lymphedema, not elsewhere classified; I10 Essential (primary) hypertension; I87.2 Venous insufficiency (chronic) (peripheral); R60.0 Localized edema; S81.801A Unspecified open wound, right lower leg, initial encounter; K21.9 Gastro-esophageal reflux disease without esophagitis; G47.33 Obstructive sleep apnea (adult) (pediatric); F90.9 Attention-deficit hyperactivity disorder, unspecified type
CPT/HCPCS: 11042; 15271; 87070; 87075; 87077; 87186; 87205; Q4186

== ENCOUNTER 2023-08-28 10:54 | Outpatient (CLI) | payer MEDICAID, SELFPAY ==
[2023-08-28 11:07] VITALS: RESP 16
[2023-08-28] MEDS: DALBAVANCIN IV (11:45)
[2023-08-28] MEDS: WATER IV (11:45)
[2023-08-28] MEDS: DEXTROSE 5% IV (11:45)
[2023-08-28 12:32] VITALS: BP 149/78; PULSE 66; RESP 16; TEMP 36.1; O2SAT 96
== END 2023-08-28 10:55 | disposition home or self-care (01) ==
LOC: MEDOUTP 10:54
PROVIDERS: PCP Internal Medicine; Referring Provider Internal Medicine Infectious Disease; Visit Provider Internal Medicine Infectious Disease
DX: E11.622 Type 2 diabetes mellitus with other skin ulcer (principal); L97.922 Non-pressure chronic ulcer of unspecified part of left lower leg with fat layer exposed; S81.801A Unspecified open wound, right lower leg, initial encounter; R60.0 Localized edema; I87.2 Venous insufficiency (chronic) (peripheral)
CPT/HCPCS: 96365; J7050; A4216; J0875

== ENCOUNTER 2023-09-13 09:15 | Outpatient (RCR) | payer MEDICAID, SELFPAY ==
[2023-08-20 00:35] VITALS: BP 140/67; PULSE 81; RESP 18; TEMP 36.1; BMI 49.7
[2023-08-23 09:31] VITALS: BP 136/84; PULSE 80; RESP 20; TEMP 35.7; BMI 49.7
--- NOTE | 2023-08-23 10:37 | PN.PCM_ITS ---
History of Present Illness Date of Service: 08/23/23 Chief Complaint: Left anterior leg ulcer History of Wound: 57-year-old female who originally had a traumatic hematoma in 2012 to her left anterior leg and had an operative debridement and eventually had skin graft placement. She has been seen periodically at the wound center for chronic ulcers to her legs over the years. She has most recently been seeing Dr. Chang for her wound care. Her most significant issue at this time is her edema/lymphedema. When her edema becomes severe, she develops ulcers on her legs. She has a history of T2D, COPD, chronic venous insufficiency, cellulitis, chest pain, left ventricular aneurysm, HTN, Bipolar, ADHD, ABRAM, chronic pain syndrome, GERD. Wound culture from 03/08/23 positive for Staphylococcus aureus and she was started on Doxycycline. Wound culture obtained 04/26/23 which was positive for Staphylococcus aureus that was resistant to Doxycycline and Bactrim, she is allergic to PCN and cephalosporins and she is on several medications that interact with Linezolid, therefore insurance approval was obtained to start her on a new medication Nuzyra which she started 05/02/23. She completed it Nuzyra but experienced nausea and vomiting with it. Wound culture obtained 07/26/23 which was positive for MSSA. With all her allergies and the medications that she is on, will refer her to infectious disease to for antibiotic coverage. Wound Care - She has been approved for Epifix. She currently denies fever, chills. Progress of Wound: Left anterior leg ulcer is slightly smaller. Wound culture obtained 07/26/23 which was positive for MSSA but she is allergic to the medications that will cover this organism. She has an appointment later today with Dr. Arevalo, ID. Objective Data Objective Data Vital Signs: Vital Signs Temp Pulse Resp BP 96.3 F L 80 20 H 136/84 H 08/23/23 09:31 08/23/23 09:31 08/23/23 09:31 08/23/23 09:31 Weight: 299 lb Body Mass Index (BMI) 49.7 Charges/Coding Procedures Integumentary 150xxx-152xx: 03714 Skin sub graft trnk/arm/leg Debridement Note Debridement Note Wound debrided: Anterior leg proximal ulcer Laterality: Left Wound Grade/Stage: Stage II Type of Debridement: Excisional debridement Anesthesia Used: 5% Lidocaine Gel Depth: Down to and including healthy tissue and in the subcutaneous layer Percentage of wound debrided: 100 Instrument Used: 5mm curette Tissue Removed: Devitalized tissue and slough Severity: Limited To Skin Breakdown Amount of bleeding with debridement: Mild Bleeding Controlled with: Pressure and Compression and gauze Patient tolerated procedure: Patient tolerated procedure well Post-Debridement Measurements and Additional Note: Post-Debridement Measurements/Treatment NILO - Nurse 1 - General Ulcer Assessment Start: 08/23/23 09:31 Freq: Status: Active Protocol: PERRY Activity Type Activity Date Activity User E-sign Co-sign Detail Recorded Client Recorded Date Recorded By Document 08/23/23 09:31 DL [email or web address] 08/23/23 09:34 DL 08/23/23 09: WC - Today's Visit Information Type of service Follow-up Visit (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/BUSINESS 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 LEADER ) Arrival Mode Ambulatory Transfer Assistance None Patient Identification Verified (Name & Yes ) Patient Requires Transmission-Based No Precautions Finger Stick Blood Sugar(mg/dl) (if 124 indicated): Blood Sugar Stated by Patient Height and Weight Body Mass Index (BMI) 49.7 BMI Classification Obese Vital Signs Temperature (97.8 F-99.1 F) 96.3 F L Temperature Source Temporal Pulse Rate (60-100) 80 Pulse Location Monitor Respiratory Rate (12-18) 20 H Respiratory rate source Observation Blood Pressure (90/60-120/80) 136/84 H Blood Pressure Mean (mm Hg) 101 Source Monitor History Since Last Visit- (Skip if this is Patient's initial visit) Have you changed medications since your No last visit? Any new allergies or adverse reactions No Had a fall/change in ADL's that may No increase risk of falls Signs or symptoms of abuse and/or No neglect since last visit Have you been in the hospital since your No last visit? Has dressing in place as prescribed Yes Has compression in place as prescribed Yes Has offloadiing in place as prescribed N/A Experienced any changes in pain level or Yes management Pain Scale: 0-10 Numeric Is Patient Pain Free? Yes NILO [place] Nurse 1 - General Ulcer Measurement Start: 08/23/23 09:31 Freq: Status: Active Protocol: Activity Type Activity Date Activity User E-sign Co-sign Detail Recorded Client Recorded Date Recorded By Document 08/23/23:31 DL [email or web address] 08/23/23 09:34 DL 08/23/23 09:31 Wound Center Nurse 1 #7- L TORRES -Current Size (cm) - Length 1.6 -Current Size (cm) - Width 1.5 -Current Size (cm) - Depth 0.2 -Total Square Cm 2.40 -Photo Taken Yes -Exudate Amt Medium -Exudate Type Serosanguineous -Wound Margin Distinct, Outline Attached -Granulation Amt Medium (34-66%) -Granulation Quality [place],Red -Necrosis Amt Small (1-33%) -Necrotic Tissue Type Adherent Slough -Structure Exposed N/A -Texture (Verónica-wound Skin Appearance) Scarring -Moisture (Verónica-wound Skin Appearance) No Abnormality -Color (Verónica-wound Skin Appearance) Hemosiderin Staining -Temperature (Verónica-wound Skin No Abnormality Appearance) (Pt Warm) -Tenderness on Palpation (Verónica-wound No Skin Appearance) -Ulcer Cleansing Rinsed/ Irrigated with Saline -Foul Odor after Cleansing No -Anesthetic Used 5% Lidocaine Gel Left Calf (cm) 49 Left Ankle (cm) 24 WC - Nurse 2 - General Ulcer CM Notes Start: 08/23/23 09:31 Freq: Status: Active Protocol: Activity Type Activity Date Activity User E-sign Co-sign Detail Recorded Client Recorded Date Recorded By Document 08/23/23 09:48 Laptop 08/23/23 09:50 08/23/23 09:48 Wound Center Nurse 2 #7- L TORRES -Time 09:48 -Correct Patient Yes -Correct Side, Site, Position Yes -Correct Procedure Yes -Procedure Performed Yes -Type of Procedure Debridement -Clinical Debridement Subcutaneous -Tissue Removed Subcutaneous -Post Debridement (cm) - Length 2.2 -Post Debridement (cm) - Width 1.7 -Post Debridement (cm) - Depth 0.2 -Total Square (Post) (cm) 3.74 -Area of Debridement (cm) - Length 2.2 -Area of Debridement (cm) - Width 1.7 -Total Square (Area) (cm) 3.74 -Tunneling No -Undermining/Tunneling No -Circular Undermining No -Wound/Ulcer Outcome Not Healed -Ulcer Cleansing Rinsed/ Irrigated with Saline -Foul Odor after Cleansing No -Bioengineered Tissue Yes -Type of Bioengineered Tissue Epifix -Expiration Date 04/20/28 -Product Lot Number [id number] -Percent Used 100 -Lot number of Saline Used [id number] -Bleeding Controlled with Pressure -Treatment Response Procedure Tolerated Well -Offloading No -Debridement - Subq, 1st 20sq cm No -Apply Skin Sub - 1st 25 sq cm - Legs 1 -Epifix (per sq cm) 4 Pain Scale: 0-10 Numeric Is Patient Pain Free? Yes - Nurse 3 - General Ulcer D/C NN Start: 08/23/23 09:31 Freq: Status: Active Protocol: Activity Type Activity Date Activity User E-sign Co-sign Detail Recorded Client Recorded Date Recorded By Document 08/23/23 09:51 Laptop 08/23/23 09:52 08/23/23 09:51 Wound Care Center Nurse 3 #7- L TORRES -Ulcer Cleansing Rinsed/ Irrigated with Saline -Primary Dressing Applied Mepilex Border -Mepilex Border 2 Left -Compression Wrap Silvestre Wrap Pain Scale: 0-10 Numeric Is Patient Pain Free? Yes - Visit Discharge Discharge Condition Stable Ambulatory Status Ambulatory Transportation Private Auto Medication Reconcilliation completed & Yes provided to patient/care provider Clinical Summary of Care Provided Yes Assessment/Plan Assessment/Plan (1) Chronic ulcer of left leg with fat layer exposed: CODE(S): L97.922 - Non-pressure chronic ulcer of unspecified part of left lower leg with fat layer exposed (2) Wound of right lower extremity: CODE(S): S81.801A - Unspecified open wound, right lower leg, initial encounter QUALIFIERS: Encounter type: initial encounter Qualified Code(s): S81.801A - Unspecified open wound, right lower leg, initial encounter (3) Edema of both lower extremities: CODE(S): R60.0 - Localized edema (4) Venous insufficiency (chronic) (peripheral): CODE(S): I87.2 - Venous insufficiency (chronic) (peripheral) (5) Diabetes mellitus type 2, uncontrolled, with complications: CODE(S): E11.8 - Type 2 diabetes mellitus with unspecified complications; E11.65 - Type 2 diabetes mellitus with hyperglycemia PLAN: Plan Patient was evaluated at the wound healing center today. Wound care to the left anterior leg ulcer - Epifix #2 applied today. 100% of the product was used. It was covered with a wound veil and secured with steri strips. The wound was covered with Mepilex. She may change the outer dressing as needed, instructed not to remove the wound veil and not to get the wound wet. Compression - Double SILVESTRE wrap. She has an appointment today with ID to discuss her positive wound cultures. Ordered Circaid stocking for compression. Her insurance will not cover them. She is not physically able to get 30-40 mmHg compression stockings on her self. She has purchased compression stockings with 8-15 mmHg. Will have her wear them both on her left leg so she is getting 15-30 mmHg. Instructed her how to place them. She states they are too short and she would like to get a new pair of stockings but cannot afford them at this time. Discussed with her that if she does not consistently wear compression, she will continue to have edema issue which can lead to skin breakdown. She verbalizes understanding. Instructed her that she may take her compression off at bedtime when she is in her bed and then place it back on first thing in the morning. Encouraged diet low in carbohydrates and high in protein. Venous study from 02/10/22 showed Left small saphenous vein was patent and incompetent. The rest of the study was normal. Arterial study from 02/10/22 showed Right MARILU 1.06 and Left MARILU 1.07. Waveforms were Triphasic bilaterally. No signs of arterial disease. Wound culture from 03/08/23 positive for MSSA. She was started on Doxycycline due to her PCN allergy. Wound culture obtained 04/26/23 which was positive for Staphylococcus aureus that was resistant to Doxycycline and Bactrim, she is allergic to PCN and cephalosporins and she is on several medications that interact with Linezolid, therefore insurance approval was obtained to start her on a new medication Nuzyra which she has completed. She states that she sleeps in a chair because her bed is so uncomfortable. Encouraged her to try to lay flat for 20 minutes at a time several times a day to help with her edema. Follow up one week. Call or come in sooner if develop any concerns.
[2023-08-30 09:09] VITALS: BP 152/82; PULSE 84; RESP 18; TEMP 36; BMI 49.7
--- NOTE | 2023-08-30 11:38 | PCM.WC.PN ---
History of Present Illness Date of Service: 08/30/23 Chief Complaint: Left anterior leg ulcer History of Wound: 57-year-old female who originally had a traumatic hematoma in 2012 to her left anterior leg and had an operative debridement and eventually had skin graft placement. She has been seen periodically at the wound center for chronic ulcers to her legs over the years. She has most recently been seeing Dr. Chang for her wound care. Her most significant issue at this time is her edema/lymphedema. When her edema becomes severe, she develops ulcers on her legs. She has a history of T2D, COPD, chronic venous insufficiency, cellulitis, chest pain, left ventricular aneurysm, HTN, Bipolar, ADHD, ABRAM, chronic pain syndrome, GERD. Wound culture from 03/08/23 positive for Staphylococcus aureus and she was started on Doxycycline. Wound culture obtained 04/26/23 which was positive for Staphylococcus aureus that was resistant to Doxycycline and Bactrim, she is allergic to PCN and cephalosporins and she is on several medications that interact with Linezolid, therefore insurance approval was obtained to start her on a new medication Nuzyra which she started 05/02/23. She completed it Nuzyra but experienced nausea and vomiting with it. Wound culture obtained 07/26/23 which was positive for MSSA. With all her allergies and the medications that she is on, will refer her to infectious disease to for antibiotic coverage. Wound Care - She has been approved for Epifix. She currently denies fever, chills. Progress of Wound: Left anterior leg ulcer is slightly smaller. Wound culture obtained 07/26/23 which was positive for MSSA but she is allergic to the medications that will cover this organism. She saw Dr. Arevalo, ID, who gave her a one time infusion of Dalbavancin. She is tolerating the Epfix well. Objective Data Objective Data Vital Signs: Vital Signs Temp Pulse Resp BP O2 Del Method 96.8 F L 84 18 152/82 H Room Air 08/30/23 09:09 08/30/23 09:09 08/30/23 09:09 08/30/23 09:09 08/30/23 09:09 Oxygen Delivery Method Room Air Weight: 299 lb Body Mass Index (BMI) 49.7 Charges/Coding Procedures Integumentary 150xxx-152xx: 91614 Skin sub graft trnk/arm/leg Debridement Note Debridement Note Wound debrided: Anterior leg proximal ulcer Laterality: Left Wound Grade/Stage: Stage II Type of Debridement: Excisional debridement Anesthesia Used: 5% Lidocaine Gel Depth: Down to and including healthy tissue and in the subcutaneous layer Percentage of wound debrided: 100 Instrument Used: 5mm curette Tissue Removed: Devitalized tissue and slough Severity: Limited To Skin Breakdown Amount of bleeding with debridement: Mild Bleeding Controlled with: Pressure and Compression and gauze Patient tolerated procedure: Patient tolerated procedure well Post-Debridement Measurements and Additional Note: Post-Debridement Measurements/Treatment - Nurse 1 - General Ulcer Assessment Start: 08/23/23 09:31 Freq: Status: Active Protocol: [employer] Activity Type Activity Date Activity User E-sign Co-sign Detail Recorded Client Recorded Date Recorded By Document 08/23/23 09:31 DL Desktop 08/23/23 09:34 DL Document 08/30/23 09:09 KW Desktop 08/30/23 09:16 KW 08/23/23 08/30/23 09:31 09:09 - Today's Visit Information Type of service Follow-up Visit Follow-up Visit (Physician/CONCRETE 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 (Physician/CONCRETE 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 ) ) Arrival Mode Ambulatory Ambulatory Transfer Assistance None Patient Identification Verified (Name & Yes Yes ) Patient Requires Transmission-Based No Precautions Finger Stick Blood Sugar(mg/dl) (if 124 indicated): Blood Sugar Stated by Patient Height and Weight Body Mass Index (BMI) 49.7 49.7 BMI Classification Obese Obese Vital Signs Temperature (97.8 F-99.1 F) 96.3 F L 96.8 F L Temperature Source Temporal Temporal Pulse Rate (60-100) 80 84 Pulse Location Monitor Monitor Respiratory Rate (12-18) 20 H 18 Respiratory rate source Observation Observation Oxygen Delivery Method Room Air Blood Pressure (90/60-120/80) 136/84 H 152/82 H Blood Pressure Mean (mm Hg) 101 105 Source Monitor Monitor Position Semi-Fowlers Blood Pressure Location Left Forearm History Since Last Visit- (Skip if this is Patient's initial visit) Have you changed medications since your No Yes last visit? Any new allergies or adverse reactions No No Had a fall/change in ADL's that may No No increase risk of falls Signs or symptoms of abuse and/or No No neglect since last visit Have you been in the hospital since your No No last visit? Has dressing in place as prescribed Yes Yes Has compression in place as prescribed Yes Yes Has offloadiing in place as prescribed N/A No Experienced any changes in pain level or Yes No management Left Footwear Regular Shoe Right Footwear Regular Shoe Pain Scale: 0-10 Numeric Is Patient Pain Free? Yes Yes WC - Nurse 1 - General Ulcer Measurement Start: 08/23/23 09:31 Freq: Status: Active Protocol: Activity Type Activity Date Activity User E-sign Co-sign Detail Recorded Client Recorded Date Recorded By Document 08/23/23 09:31 DL Desktop 08/23/23 09:34 DL Document 08/30/23 09:09 KW Desktop 08/30/23 09:16 KW 08/23/23 08/30/23 09:31 09:09 Wound Center Nurse 1 #7- L TORRES -Current Size (cm) - Length 1.6 1.8 -Current Size (cm) - Width 1.5 1.2 -Current Size (cm) - Depth 0.2 0.3 -Total Square Cm 2.40 2.16 -Photo Taken Yes -Exudate Amt Medium Small -Exudate Type Serosanguineous Serosanguineous -Wound Margin Distinct, Distinct, Outline Outline Attached Attached -Granulation Amt Medium (34-66%) Medium (34-66%) -Granulation Quality [place],Red Red -Necrosis Amt Small (1-33%) Small (1-33%) -Necrotic Tissue Type Adherent Slough Adherent Slough -Structure Exposed N/A -Texture (Verónica-wound Skin Appearance) Scarring Assessed -Moisture (Verónica-wound Skin Appearance) No Abnormality Assessed -Color (Verónica-wound Skin Appearance) Hemosiderin Assessed Staining -Temperature (Verónica-wound Skin No Abnormality No Abnormality Appearance) (Pt Warm) (Pt Warm) -Tenderness on Palpation (Verónica-wound No No Skin Appearance) -Ulcer Cleansing Rinsed/ Soap and Water Irrigated with Saline -Foul Odor after Cleansing No No -Anesthetic Used 5% Lidocaine 5% Lidocaine Gel Gel Left Calf (cm) 49 54.2 Left Ankle (cm) 24 23.4 WC - Nurse 2 - General Ulcer CM Notes Start: 08/23/23 09:31 Freq: Status: Active Protocol: Activity Type Activity Date Activity User E-sign Co-sign Detail Recorded Client Recorded Date Recorded By Document 08/23/23 09:48 Laptop 08/23/23 09:50 Document 08/30/23 09:36 Laptop 08/30/23 09:41 08/23/23 08/30/23 09:48 09:36 Wound Center Nurse 2 #7- L TORRES -Time 09:48 09:36 -Correct Patient Yes Yes -Correct Side, Site, Position Yes Yes -Correct Procedure Yes Yes -Procedure Performed Yes Yes -Type of Procedure Debridement Debridement -Clinical Debridement Subcutaneous Subcutaneous -Tissue Removed Subcutaneous Subcutaneous -Post Debridement (cm) - Length 2.2 -Post Debridement (cm) - Width 1.7 -Post Debridement (cm) - Depth 0.2 -Total Square (Post) (cm) 3.74 -Area of Debridement (cm) - Length 2.2 -Area of Debridement (cm) - Width 1.7 -Total Square (Area) (cm) 3.74 -Tunneling No No -Undermining/Tunneling No No -Circular Undermining No No -Wound/Ulcer Outcome Not Healed Not Healed -Ulcer Cleansing Rinsed/ Rinsed/ Irrigated with Irrigated with Saline Saline -Foul Odor after Cleansing No No -Bioengineered Tissue Yes Yes -Type of Bioengineered Tissue Epifix Epifix -Expiration Date 04/20/28 06/20/28 -Product Lot Number [id number] -Percent Used 100 100 -Lot number of Saline Used [id number] -Bleeding Controlled with Pressure Pressure -Treatment Response Procedure Procedure Tolerated Well Tolerated Well -Offloading No No -Debridement - Subq, 1st 20sq cm No No -Apply Skin Sub - 1st 25 sq cm - Legs 1 1 -Epifix (per sq cm) 4 4 Pain Scale: 0-10 Numeric Is Patient Pain Free? Yes Yes - Nurse 3 - General Ulcer D/C NN Start: 08/23/23 09:31 Freq: Status: Active Protocol: Activity Type Activity Date Activity User E-sign Co-sign Detail Recorded Client Recorded Date Recorded By Document 08/23/23 09:51 Laptop 08/23/23 09:52 Document 08/30/23 09:41 Laptop 08/30/23 09:41 08/23/23 08/30/23 09:51 09:41 Wound Care Center Nurse 3 #7- L TORRES -Ulcer Cleansing Rinsed/ Irrigated with Saline -Primary Dressing Applied Mepilex Border Mepilex Border -Mepilex Border 2 1 Left -Compression Wrap Silvestre Wrap Silvestre Wrap Pain Scale: 0-10 Numeric Is Patient Pain Free? Yes Yes WC - Visit Discharge Discharge Condition Stable Stable Ambulatory Status Ambulatory Ambulatory Transportation Private Auto Private Auto Medication Reconcilliation completed & Yes Yes provided to patient/care provider Clinical Summary of Care Provided Yes Yes Assessment/Plan Assessment/Plan (1) Chronic ulcer of left leg with fat layer exposed: CODE(S): L97.922 - Non-pressure chronic ulcer of unspecified part of left lower leg with fat layer exposed (2) Wound of right lower extremity: CODE(S): S81.801A - Unspecified open wound, right lower leg, initial encounter QUALIFIERS: Encounter type: initial encounter Qualified Code(s): S81.801A - Unspecified open wound, right lower leg, initial encounter (3) Edema of both lower extremities: CODE(S): R60.0 - Localized edema (4) Venous insufficiency (chronic) (peripheral): CODE(S): I87.2 - Venous insufficiency (chronic) (peripheral) (5) Diabetes mellitus type 2, uncontrolled, with complications: CODE(S): E11.8 - Type 2 diabetes mellitus with unspecified complications; E11.65 - Type 2 diabetes mellitus with hyperglycemia PLAN: Plan Patient was evaluated at the wound healing center today. Wound care to the left anterior leg ulcer - Epifix #3 applied today. 100% of the 2x2 cm product was used. It was covered with a wound veil and secured with steri strips. The wound was covered with Mepilex. She may change the outer dressing as needed, instructed not to remove the wound veil and not to get the wound wet. Compression - Double SILVESTRE wrap. Discussed with her that if she does not consistently wear compression, she will continue to have edema issue which can lead to skin breakdown. She verbalizes understanding. Instructed her that she may take her compression off at bedtime when she is in her bed and then place it back on first thing in the morning. Encouraged diet low in carbohydrates and high in protein. Venous study from 02/10/22 showed Left small saphenous vein was patent and incompetent. The rest of the study was normal. Arterial study from 02/10/22 showed Right MARILU 1.06 and Left MARILU 1.07. Waveforms were Triphasic bilaterally. No signs of arterial disease. Wound culture from 03/08/23 positive for MSSA. She was started on Doxycycline due to her PCN allergy. Wound culture obtained 04/26/23 which was positive for Staphylococcus aureus that was resistant to Doxycycline and Bactrim, she is allergic to PCN and cephalosporins and she is on several medications that interact with Linezolid, therefore insurance approval was obtained to start her on a new medication Nuzyra which she has completed. She states that she sleeps in a chair because her bed is so uncomfortable. Encouraged her to try to lay flat for 20 minutes at a time several times a day to help with her edema. Follow up one week. Call or come in sooner if develop any concerns.
[2023-09-06 09:32] VITALS: BP 130/72; PULSE 77; RESP 18; TEMP 36.2; BMI 49.7
--- NOTE | 2023-09-06 12:00 | PN.PCM_ITS ---
History of Present Illness Date of Service: 09/06/23 Chief Complaint: Left anterior leg ulcer History of Wound: 57-year-old female who originally had a traumatic hematoma in 2012 to her left anterior leg and had an operative debridement and eventually had skin graft placement. She has been seen periodically at the wound center for chronic ulcers to her legs over the years. She has most recently been seeing Dr. Chang for her wound care. Her most significant issue at this time is her edema/lymphedema. When her edema becomes severe, she develops ulcers on her legs. She has a history of T2D, COPD, chronic venous insufficiency, cellulitis, chest pain, left ventricular aneurysm, HTN, Bipolar, ADHD, ABRAM, chronic pain syndrome, GERD. Wound culture from 03/08/23 positive for Staphylococcus aureus and she was started on Doxycycline. Wound culture obtained 04/26/23 which was positive for Staphylococcus aureus that was resistant to Doxycycline and Bactrim, she is allergic to PCN and cephalosporins and she is on several medications that interact with Linezolid, therefore insurance approval was obtained to start her on a new medication Nuzyra which she started 05/02/23. She completed it Nuzyra but experienced nausea and vomiting with it. Wound culture obtained 07/26/23 which was positive for MSSA. With all her allergies and the medications that she is on, will refer her to infectious disease to for antibiotic coverage. Wound Care - She has been approved for Epifix. She currently denies fever, chills. Progress of Wound: Left anterior leg ulcer is slightly smaller. Epifix was very dry today. Wound culture obtained 07/26/23 which was positive for MSSA but she is allergic to the medications that will cover this organism. She saw Dr. Arevalo, ID, who gave her a one time infusion of Dalbavancin. She is tolerating the Epfix well. Objective Data Objective Data Vital Signs: Vital Signs Temp Pulse Resp BP O2 Del Method 97.2 F L 77 18 130/72 H Room Air 09/06/23 09:32 09/06/23 09:32 09/06/23 09:32 09/06/23 09:32 09/06/23 09:32 Oxygen Delivery Method Room Air Weight: 299 lb Body Mass Index (BMI) 49.7 Charges/Coding Procedures Integumentary 150xxx-152xx: 12262 Skin sub graft trnk/arm/leg Debridement Note Debridement Note Wound debrided: Anterior leg proximal ulcer Laterality: Left Wound Grade/Stage: Stage II Type of Debridement: Excisional debridement Anesthesia Used: 5% Lidocaine Gel Depth: Down to and including healthy tissue and in the subcutaneous layer Percentage of wound debrided: 100 Instrument Used: 5mm curette Tissue Removed: Devitalized tissue and slough Severity: Limited To Skin Breakdown Amount of bleeding with debridement: Mild Bleeding Controlled with: Pressure and Compression and gauze Patient tolerated procedure: Patient tolerated procedure well Post-Debridement Measurements and Additional Note: Post-Debridement Measurements/Treatment - Nurse 1 - General Ulcer Assessment Start: 08/23/23 09:31 Freq: Status: Active Protocol: PERRY Activity Type Activity Date Activity User E-sign Co-sign Detail Recorded Client Recorded Date Recorded By Document 08/23/23 09:31 DL Desktop 08/23/23 09:34 DL Document 08/30/23 09:09 KW Desktop 08/30/23 09:16 KW Document 09/06/23 09:32 KW Desktop 09/06/23 09:40 KW 08/23/23 08/30/23 09/06/23 09:31 09:09 09:32 - Today's Visit Information Type of service Follow-up Visit Follow-up Visit Follow-up Visit (Physician/BRAZER CONTROLLED ATMOSPHERIC FURNACE (Physician/BRAZER CONTROLLED ATMOSPHERIC FURNACE (Physician/BRAZER CONTROLLED ATMOSPHERIC FURNACE ) ) ) Arrival Mode Ambulatory Ambulatory Ambulatory Transfer Assistance None Patient Identification Verified (Name & Yes Yes Yes ) Patient Requires Transmission-Based No Precautions Finger Stick Blood Sugar(mg/dl) (if 124 indicated): Blood Sugar Stated by Patient Height and Weight Body Mass Index (BMI) 49.7 49.7 49.7 BMI Classification Obese Obese Obese Vital Signs Temperature (97.8 F-99.1 F) 96.3 F L 96.8 F L 97.2 F L Temperature Source Temporal Temporal Temporal Pulse Rate (60-100) 80 84 77 Pulse Location Monitor Monitor Monitor Respiratory Rate (12-18) 20 H 18 18 Respiratory rate source Observation Observation Observation Oxygen Delivery Method Room Air Room Air Blood Pressure (90/60-120/80) 136/84 H 152/82 H 130/72 H Blood Pressure Mean (mm Hg) 101 105 91 Source Monitor Monitor Monitor Position Semi-Fowlers Semi-Fowlers Blood Pressure Location Left Forearm Left Forearm History Since Last Visit- (Skip if this is Patient's initial visit) Have you changed medications since your No Yes No last visit? Any new allergies or adverse reactions No No No Had a fall/change in ADL's that may No No No increase risk of falls Signs or symptoms of abuse and/or No No No neglect since last visit Have you been in the hospital since your No No No last visit? Has dressing in place as prescribed Yes Yes Yes Has compression in place as prescribed Yes Yes Yes Has offloadiing in place as prescribed N/A No No Experienced any changes in pain level or Yes No No management Left Footwear Regular Shoe Regular Shoe Right Footwear Regular Shoe Regular Shoe Pain Scale: 0-10 Numeric Is Patient Pain Free? Yes Yes No BLE -Description Throbbing -Intensity 7 -Alleviating Factors/Interventions Medication WC - Nurse 1 - General Ulcer Measurement Start: 08/23/23 09:31 Freq: Status: Active Protocol: Activity Type Activity Date Activity User E-sign Co-sign Detail Recorded Client Recorded Date Recorded By Document 08/23/23 09:31 DL Desktop 08/23/23 09:34 DL Document 08/30/23 09:09 KW Desktop 08/30/23 09:16 KW Document 09/06/23 09:32 KW Desktop 09/06/23 09:40 KW 08/23/23 08/30/23 09/06/23 09:31 09:09 09:32 Wound Center Nurse 1 #7- L TORRES -Current Size (cm) - Length 1.6 1.8 2.0 -Current Size (cm) - Width 1.5 1.2 1.4 -Current Size (cm) - Depth 0.2 0.3 0.2 -Total Square Cm 2.40 2.16 2.80 -Photo Taken Yes -Exudate Amt Medium Small Small -Exudate Type Serosanguineous Serosanguineous Serosanguineous -Wound Margin Distinct, Distinct, Distinct, Outline Outline Outline Attached Attached Attached -Granulation Amt Medium (34-66%) Medium (34-66%) Small (1-33%) -Granulation Quality [place],Red Red Red -Necrosis Amt Small (1-33%) Small (1-33%) Small (1-33%) -Necrotic Tissue Type Adherent Slough Adherent Slough Adherent Slough -Structure Exposed N/A -Texture (Verónica-wound Skin Appearance) Scarring Assessed Assessed -Moisture (Verónica-wound Skin Appearance) No Abnormality Assessed Assessed -Color (Verónica-wound Skin Appearance) Hemosiderin Assessed Assessed, Staining Erythema -Temperature (Verónica-wound Skin No Abnormality No Abnormality No Abnormality Appearance) (Pt Warm) (Pt Warm) (Pt Warm) -Tenderness on Palpation (Verónica-wound No No Skin Appearance) -Ulcer Cleansing Rinsed/ Soap and Water Soap and Water Irrigated with Saline -Foul Odor after Cleansing No No No -Anesthetic Used 5% Lidocaine 5% Lidocaine 5% Lidocaine Gel Gel Gel Left Calf (cm) 49 54.2 51.0 Left Ankle (cm) 24 23.4 21.5 WC - Nurse 2 - General Ulcer CM Notes Start: 08/23/23 09:31 Freq: Status: Active Protocol: Activity Type Activity Date Activity User E-sign Co-sign Detail Recorded Client Recorded Date Recorded By Document 08/23/23 09:48 [employer] Laptop 08/23/23 09:50 Document 08/30/23 09:36 Laptop 08/30/23 09:41 Document 09/06/23 09:58 Laptop 09/06/23 10:04 08/23/23 08/30/23 09/06/23 09:48 09:36 09:58 Wound Center Nurse 2 #7- L TORRES -Time 09:48 09:36 10:02 -Correct Patient Yes Yes Yes -Correct Side, Site, Position Yes Yes Yes -Correct Procedure Yes Yes Yes -Procedure Performed Yes Yes Yes -Type of Procedure Debridement Debridement Debridement -Clinical Debridement Subcutaneous Subcutaneous Subcutaneous -Tissue Removed Subcutaneous Subcutaneous Subcutaneous -Post Debridement (cm) - Length 2.2 2.1 -Post Debridement (cm) - Width 1.7 1.3 -Post Debridement (cm) - Depth 0.2 0.2 -Total Square (Post) (cm) 3.74 2.73 -Area of Debridement (cm) - Length 2.2 2.1 -Area of Debridement (cm) - Width 1.7 1.3 -Total Square (Area) (cm) 3.74 2.73 -Tunneling No No No -Undermining/Tunneling No No No -Circular Undermining No No No -Wound/Ulcer Outcome Not Healed Not Healed Not Healed -Ulcer Cleansing Rinsed/ Rinsed/ Rinsed/ Irrigated with Irrigated with Irrigated with Saline Saline Saline -Foul Odor after Cleansing No No No -Bioengineered Tissue Yes Yes Yes -Type of Bioengineered Tissue Epifix Epifix Epifix -Expiration Date 04/20/28 06/20/28 05/20/28 -Product Lot Number [id number] -Percent Used 100 100 100 -Lot number of Saline Used [id number] -Bleeding Controlled with Pressure Pressure Pressure -Treatment Response Procedure Procedure Procedure Tolerated Well Tolerated Well Tolerated Well -Offloading No No No -Debridement - Subq, 1st 20sq cm No No No -Apply Skin Sub - 1st 25 sq cm - Legs 1 1 1 -Epifix (per sq cm) 4 4 4 Pain Scale: 0-10 Numeric Is Patient Pain Free? Yes Yes Yes - Nurse 3 - General Ulcer D/C NN Start: 08/23/23 09:31 Freq: Status: Active Protocol: Activity Type Activity Date Activity User E-sign Co-sign Detail Recorded Client Recorded Date Recorded By Document 08/23/23 09:51 Laptop 08/23/23 09:52 Document 08/30/23 09:41 Laptop 08/30/23 09:41 Document 09/06/23 10:04 Laptop 09/06/23 10:05 08/23/23 08/30/23 09/06/23 09:51 09:41 10:04 Wound Care Center Nurse 3 #7- L TORRES -Ulcer Cleansing Rinsed/ Rinsed/ Irrigated with Irrigated with Saline Saline -Foul Odor after Cleansing No -Primary Dressing Applied Mepilex Border Mepilex Border Mepilex Border -Mepilex Border 2 1 1 Left -Compression Wrap Silvestre Wrap Silvestre Wrap Silvestre Wrap Pain Scale: 0-10 Numeric Is Patient Pain Free? Yes Yes Yes - Visit Discharge Discharge Condition Stable Stable Stable Ambulatory Status Ambulatory Ambulatory Ambulatory Transportation Private Auto Private Auto Private Auto Medication Reconcilliation completed & Yes Yes Yes provided to patient/care provider Clinical Summary of Care Provided Yes Yes Yes Assessment/Plan Assessment/Plan (1) Chronic ulcer of left leg with fat layer exposed: CODE(S): L97.922 - Non-pressure chronic ulcer of unspecified part of left lower leg with fat layer exposed (2) Wound of right lower extremity: CODE(S): S81.801A - Unspecified open wound, right lower leg, initial encounter QUALIFIERS: Encounter type: initial encounter Qualified Code(s): S81.801A - Unspecified open wound, right lower leg, initial encounter (3) Edema of both lower extremities: CODE(S): R60.0 - Localized edema (4) Venous insufficiency (chronic) (peripheral): CODE(S): I87.2 - Venous insufficiency (chronic) (peripheral) (5) Diabetes mellitus type 2, uncontrolled, with complications: CODE(S): E11.8 - Type 2 diabetes mellitus with unspecified complications; E11.65 - Type 2 diabetes mellitus with hyperglycemia PLAN: Plan Patient was evaluated at the wound healing center today. Wound care to the left anterior leg ulcer - Epifix #4 applied today. 100% of the 2x2 cm product was used. Hydrogel was placed on top of the epifix to help prevent it from drying out. It was covered with a wound veil and secured with steri strips. The wound was covered with Mepilex. She may change the outer dressing as needed, instructed not to remove the wound veil and not to get the wound wet. Compression - Double SILVESTRE wrap. Discussed with her that if she does not consistently wear compression, she will continue to have edema issue which can lead to skin breakdown. She verbalizes understanding. Instructed her that she may take her compression off at bedtime when she is in her bed and then place it back on first thing in the morning. Encouraged diet low in carbohydrates and high in protein. Venous study from 02/10/22 showed Left small saphenous vein was patent and incompetent. The rest of the study was normal. Arterial study from 02/10/22 showed Right MARILU 1.06 and Left MARILU 1.07. Waveforms were Triphasic bilaterally. No signs of arterial disease. Wound culture from 03/08/23 positive for MSSA. She was started on Doxycycline due to her PCN allergy. Wound culture obtained 04/26/23 which was positive for Staphylococcus aureus that was resistant to Doxycycline and Bactrim, she is allergic to PCN and cephalosporins and she is on several medications that interact with Linezolid, therefore insurance approval was obtained to start her on a new medication Nuzyra which she has completed. She states that she sleeps in a chair because her bed is so uncomfortable. Encouraged her to try to lay flat for 20 minutes at a time several times a day to help with her edema. Follow up one week. Call or come in sooner if develop any concerns.
[2023-09-13 09:13] VITALS: BP 134/79; PULSE 71; RESP 20; TEMP 35.5; BMI 49.7
--- NOTE | 2023-09-13 13:05 | PCM.WC.PN ---
History of Present Illness Date of Service: 09/13/23 Chief Complaint: Left anterior leg ulcer History of Wound: 57-year-old female who originally had a traumatic hematoma in 2012 to her left anterior leg and had an operative debridement and eventually had skin graft placement. She has been seen periodically at the wound center for chronic ulcers to her legs over the years. She has most recently been seeing Dr. Chang for her wound care. Her most significant issue at this time is her edema/lymphedema. When her edema becomes severe, she develops ulcers on her legs. She has a history of T2D, COPD, chronic venous insufficiency, cellulitis, chest pain, left ventricular aneurysm, HTN, Bipolar, ADHD, ABRAM, chronic pain syndrome, GERD. Wound culture from 03/08/23 positive for Staphylococcus aureus and she was started on Doxycycline. Wound culture obtained 04/26/23 which was positive for Staphylococcus aureus that was resistant to Doxycycline and Bactrim, she is allergic to PCN and cephalosporins and she is on several medications that interact with Linezolid, therefore insurance approval was obtained to start her on a new medication Nuzyra which she started 05/02/23. She completed it Nuzyra but experienced nausea and vomiting with it. Wound culture obtained 07/26/23 which was positive for MSSA. With all her allergies and the medications that she saw infectious disease for treatment of a one time infusion of Dalbavancin. Wound Care - She has been approved for Epifix. She currently denies fever, chills. Progress of Wound: Left anterior leg ulcer is slightly smaller. Objective Data Objective Data Vital Signs: Vital Signs Temp Pulse Resp BP O2 Del Method 95.9 F L 71 20 H 134/79 H Room Air 09/13/23 09:13 09/13/23 09:13 09/13/23 09:13 09/13/23 09:13 09/06/23 09:32 Oxygen Delivery Method Room Air Weight: 299 lb Body Mass Index (BMI) 49.7 Charges/Coding Procedures Integumentary 150xxx-152xx: [id number] Skin sub graft trnk/arm/leg Debridement Note Debridement Note Wound debrided: Anterior leg proximal ulcer Laterality: Left Wound Grade/Stage: Stage II Type of Debridement: Excisional debridement Anesthesia Used: 5% Lidocaine Gel Depth: Down to and including healthy tissue and in the subcutaneous layer Percentage of wound debrided: 100 Instrument Used: 5mm curette Tissue Removed: Devitalized tissue and slough Severity: Limited To Skin Breakdown Amount of bleeding with debridement: Mild Bleeding Controlled with: Pressure and Compression and gauze Patient tolerated procedure: Patient tolerated procedure well Post-Debridement Measurements and Additional Note: Post-Debridement Measurements/Treatment WC - Nurse 1 - General Ulcer Assessment Start: 08/23/23 09:31 Freq: Status: Active Protocol: PERRY Activity Type Activity Date Activity User E-sign Co-sign Detail Recorded Client Recorded Date Recorded By Document 08/23/23 09:31 DL Desktop 08/23/23 09:34 DL Document 08/30/23 09:09 KW Desktop 08/30/23 09:16 KW Document 09/06/23 09:32 KW Desktop 09/06/23 09:40 KW Document 09/13/23 09:13 DL Desktop 09/13/23 09:18 DL 08/23/23 08/30/23 09/06/23 09:31 09:09 09:32 WC - Today's Visit Information Type of service Follow-up Visit Follow-up Visit Follow-up Visit (Physician/CHIEF ENGINEER'S HELPER (Physician/CHIEF ENGINEER'S HELPER (Physician/CHIEF ENGINEER'S HELPER ) ) ) Arrival Mode Ambulatory Ambulatory Ambulatory Transfer Assistance None Patient Identification Verified (Name & Yes Yes Yes ) Patient Requires Transmission-Based No Precautions Finger Stick Blood Sugar(mg/dl) (if 124 indicated): Blood Sugar Stated by Patient Height and Weight Body Mass Index (BMI) 49.7 49.7 49.7 BMI Classification Obese Obese Obese Vital Signs Temperature (97.8 F-99.1 F) 96.3 F L 96.8 F L 97.2 F L Temperature Source Temporal Temporal Temporal Pulse Rate (60-100) 80 84 77 Pulse Location Monitor Monitor Monitor Respiratory Rate (12-18) 20 H 18 18 Respiratory rate source Observation Observation Observation Oxygen Delivery Method Room Air Room Air Blood Pressure (90/60-120/80) 136/84 H 152/82 H 130/72 H Blood Pressure Mean (mm Hg) 101 105 91 Source Monitor Monitor Monitor Position Semi-Fowlers Semi-Fowlers Blood Pressure Location Left Forearm Left Forearm History Since Last Visit- (Skip if this is Patient's initial visit) Have you changed medications since your No Yes No last visit? Any new allergies or adverse reactions No No No Had a fall/change in ADL's that may No No No increase risk of falls Signs or symptoms of abuse and/or No No No neglect since last visit Have you been in the hospital since your No No No last visit? Has dressing in place as prescribed Yes Yes Yes Has compression in place as prescribed Yes Yes Yes Has offloadiing in place as prescribed N/A No No Experienced any changes in pain level or Yes No No management Left Footwear Regular Shoe Regular Shoe Right Footwear Regular Shoe Regular Shoe Pain Scale: 0-10 Numeric Is Patient Pain Free? Yes Yes No BLE -Description Throbbing -Intensity 7 -Alleviating Factors/Interventions Medication 09/13/23 09:13 WC - Today's Visit Information Type of service Follow-up Visit (Physician/CHIEF ENGINEER'S HELPER ) Arrival Mode Ambulatory Transfer Assistance None Patient Identification Verified (Name & Yes ) Patient Requires Transmission-Based No Precautions Finger Stick Blood Sugar(mg/dl) (if 152 indicated): Blood Sugar Stated by Patient Height and Weight Body Mass Index (BMI) 49.7 BMI Classification Obese Vital Signs Temperature (97.8 F-99.1 F) 95.9 F L Temperature Source Temporal Pulse Rate (60-100) 71 Pulse Location Monitor Respiratory Rate (12-18) 20 H Respiratory rate source Observation Oxygen Delivery Method Blood Pressure (90/60-120/80) 134/79 H Blood Pressure Mean (mm Hg) 97 Source Monitor Position Blood Pressure Location History Since Last Visit- (Skip if this is Patient's initial visit) Have you changed medications since your No last visit? Any new allergies or adverse reactions No Had a fall/change in ADL's that may No increase risk of falls Signs or symptoms of abuse and/or No neglect since last visit Have you been in the hospital since your No last visit? Has dressing in place as prescribed Yes Has compression in place as prescribed Yes Has offloadiing in place as prescribed N/A Experienced any changes in pain level or No management Left Footwear Regular Shoe Right Footwear Regular Shoe Pain Scale: 0-10 Numeric Is Patient Pain Free? Yes BLE -Description -Intensity -Alleviating Factors/Interventions - Nurse 1 - General Ulcer Measurement Start: 08/23/23 09:31 Freq: Status: Active Protocol: Activity Type Activity Date Activity User E-sign Co-sign Detail Recorded Client Recorded Date Recorded By Document 08/23/23 09:31 DL Desktop 08/23/23 09:34 DL Document 08/30/23 09:09 KW Desktop 08/30/23 09:16 KW Document 09/06/23 09:32 KW Desktop 09/06/23 09:40 KW Document 09/13/23 09:13 DL Desktop 09/13/23 09:18 DL 08/23/23 08/30/23 09/06/23 09:31 09:09 09:32 Wound Center Nurse 1 #7- L TORRES -Current Size (cm) - Length 1.6 1.8 2.0 -Current Size (cm) - Width 1.5 1.2 1.4 -Current Size (cm) - Depth 0.2 0.3 0.2 -Total Square Cm 2.40 2.16 2.80 -Photo Taken Yes -Exudate Amt Medium Small Small -Exudate Type Serosanguineous Serosanguineous Serosanguineous -Wound Margin Distinct, Distinct, Distinct, Outline Outline Outline Attached Attached Attached -Granulation Amt Medium (34-66%) Medium (34-66%) Small (1-33%) -Granulation Quality [place],Red Red Red -Necrosis Amt Small (1-33%) Small (1-33%) Small (1-33%) -Necrotic Tissue Type Adherent Slough Adherent Slough Adherent Slough -Structure Exposed N/A -Texture (Verónica-wound Skin Appearance) Scarring Assessed Assessed -Moisture (Verónica-wound Skin Appearance) No Abnormality Assessed Assessed -Color (Verónica-wound Skin Appearance) Hemosiderin Assessed Assessed, Staining Erythema -Temperature (Verónica-wound Skin No Abnormality No Abnormality No Abnormality Appearance) (Pt Warm) (Pt Warm) (Pt Warm) -Tenderness on Palpation (Verónica-wound No No Skin Appearance) -Ulcer Cleansing Rinsed/ Soap and Water Soap and Water Irrigated with Saline -Foul Odor after Cleansing No No No -Anesthetic Used 5% Lidocaine 5% Lidocaine 5% Lidocaine Gel Gel Gel Left Calf (cm) 49 54.2 51.0 Left Ankle (cm) 24 23.4 21.5 09/13/23 09:13 Wound Center Nurse 1 #7- L TORRES -Current Size (cm) - Length 1.9 -Current Size (cm) - Width 1.1 -Current Size (cm) - Depth 0.3 -Total Square Cm 2.09 -Photo Taken -Exudate Amt Medium -Exudate Type Serosanguineous -Wound Margin Distinct, Outline Attached -Granulation Amt Medium (34-66%) -Granulation Quality Red -Necrosis Amt Medium (34-66%) -Necrotic Tissue Type Adherent Slough -Structure Exposed N/A -Texture (Verónica-wound Skin Appearance) Scarring -Moisture (Verónica-wound Skin Appearance) No Abnormality -Color (Verónica-wound Skin Appearance) Hemosiderin Staining -Temperature (Verónica-wound Skin No Abnormality Appearance) (Pt Warm) -Tenderness on Palpation (Verónica-wound No Skin Appearance) -Ulcer Cleansing Soap and Water -Foul Odor after Cleansing No -Anesthetic Used 5% Lidocaine Gel Left Calf (cm) 51.6 Left Ankle (cm) 23 WC - Nurse 2 - General Ulcer CM Notes Start: 08/23/23 09:31 Freq: Status: Active Protocol: Activity Type Activity Date Activity User E-sign Co-sign Detail Recorded Client Recorded Date Recorded By Document 08/23/23 09:48 [employer] Laptop 08/23/23 09:50 Document 08/30/23 09:36 [employer] Laptop 08/30/23 09:41 Document 09/06/23 09:58 [employer] Laptop 09/06/23 10:04 Document 09/13/23 09:33 [employer] Laptop 09/13/23 09:39 08/23/23 08/30/23 09/06/23 09:48 09:36 09:58 Wound Center Nurse 2 #7- L TORRES -Time 09:48 09:36 10:02 -Correct Patient Yes Yes Yes -Correct Side, Site, Position Yes Yes Yes -Correct Procedure Yes Yes Yes -Procedure Performed Yes Yes Yes -Type of Procedure Debridement Debridement Debridement -Clinical Debridement Subcutaneous Subcutaneous Subcutaneous -Tissue Removed Subcutaneous Subcutaneous Subcutaneous -Post Debridement (cm) - Length 2.2 2.1 -Post Debridement (cm) - Width 1.7 1.3 -Post Debridement (cm) - Depth 0.2 0.2 -Total Square (Post) (cm) 3.74 2.73 -Area of Debridement (cm) - Length 2.2 2.1 -Area of Debridement (cm) - Width 1.7 1.3 -Total Square (Area) (cm) 3.74 2.73 -Tunneling No No No -Undermining/Tunneling No No No -Circular Undermining No No No -Wound/Ulcer Outcome Not Healed Not Healed Not Healed -Ulcer Cleansing Rinsed/ Rinsed/ Rinsed/ Irrigated with Irrigated with Irrigated with Saline Saline Saline -Foul Odor after Cleansing No No No -Bioengineered Tissue Yes Yes Yes -Type of Bioengineered Tissue Epifix Epifix Epifix -Expiration Date 04/20/28 06/20/28 05/20/28 -Product Lot Number [id number] -Percent Used 100 100 100 -Lot number of Saline Used [id number] -Bleeding Controlled with Pressure Pressure Pressure -Treatment Response Procedure Procedure Procedure Tolerated Well Tolerated Well Tolerated Well -Offloading No No No -Debridement - Subq, 1st 20sq cm No No No -Apply Skin Sub - 1st 25 sq cm - Legs 1 1 1 -Epifix (per sq cm) 4 4 4 Pain Scale: 0-10 Numeric Is Patient Pain Free? Yes Yes Yes 09/13/23 09:33 Wound Center Nurse 2 #7- L TORRES -Time 09:35 -Correct Patient Yes -Correct Side, Site, Position Yes -Correct Procedure Yes -Procedure Performed Yes -Type of Procedure Debridement -Clinical Debridement Subcutaneous -Tissue Removed Subcutaneous -Post Debridement (cm) - Length 2.0 -Post Debridement (cm) - Width 1.2 -Post Debridement (cm) - Depth 0.2 -Total Square (Post) (cm) 2.40 -Area of Debridement (cm) - Length 2.0 -Area of Debridement (cm) - Width 1.2 -Total Square (Area) (cm) 2.40 -Tunneling No -Undermining/Tunneling No -Circular Undermining No -Wound/Ulcer Outcome Not Healed -Ulcer Cleansing Rinsed/ Irrigated with Saline -Foul Odor after Cleansing No -Bioengineered Tissue Yes -Type of Bioengineered Tissue Epifix -Expiration Date 05/20/28 -Product Lot Number [id number] -Percent Used 100 -Lot number of Saline Used [id number] -Bleeding Controlled with Pressure -Treatment Response Procedure Tolerated Well -Offloading No -Debridement - Subq, 1st 20sq cm No -Apply Skin Sub - 1st 25 sq cm - Legs 1 -Epifix (per sq cm) 4 Pain Scale: 0-10 Numeric Is Patient Pain Free? Yes - Nurse 3 - General Ulcer D/C NN Start: 08/23/23 09:31 Freq: Status: Active Protocol: Activity Type Activity Date Activity User E-sign Co-sign Detail Recorded Client Recorded Date Recorded By Document 08/23/23 09:51 Laptop 08/23/23 09:52 Document 08/30/23 09:41 Laptop 08/30/23 09:41 Document 09/06/23 10:04 Laptop 09/06/23 10:05 Document 09/13/23 09:40 Laptop 09/13/23 09:40 08/23/23 08/30/23 09/06/23 09:51 09:41 10:04 Wound Care Center Nurse 3 #7- L TORRES -Ulcer Cleansing Rinsed/ Rinsed/ Irrigated with Irrigated with Saline Saline -Foul Odor after Cleansing No -Primary Dressing Applied Mepilex Border Mepilex Border Mepilex Border -Primary Dressing Covered/Secured with -Mepilex Border 2 1 1 Left -Compression Wrap Silvestre Wrap Silvestre Wrap Silvestre Wrap Pain Scale: 0-10 Numeric Is Patient Pain Free? Yes Yes Yes - Visit Discharge Discharge Condition Stable Stable Stable Ambulatory Status Ambulatory Ambulatory Ambulatory Transportation Private Auto Private Auto Private Auto Medication Reconcilliation completed & Yes Yes Yes provided to patient/care provider Clinical Summary of Care Provided Yes Yes Yes 09/13/23 09:40 Wound Care Center Nurse 3 #7- L TORRES -Ulcer Cleansing Rinsed/ Irrigated with Saline -Foul Odor after Cleansing No -Primary Dressing Applied Mepilex Border -Primary Dressing Covered/Secured with Dry Gauze -Mepilex Border 1 Left -Compression Wrap Silvestre Wrap Pain Scale: 0-10 Numeric Is Patient Pain Free? Yes - Visit Discharge Discharge Condition Stable Ambulatory Status Ambulatory Transportation Private Auto Medication Reconcilliation completed & Yes provided to patient/care provider Clinical Summary of Care Provided Yes Assessment/Plan Assessment/Plan (1) Chronic ulcer of left leg with fat layer exposed: CODE(S): L97.922 - Non-pressure chronic ulcer of unspecified part of left lower leg with fat layer exposed (2) Wound of right lower extremity: CODE(S): S81.801A - Unspecified open wound, right lower leg, initial encounter QUALIFIERS: Encounter type: initial encounter Qualified Code(s): S81.801A - Unspecified open wound, right lower leg, initial encounter (3) Edema of both lower extremities: CODE(S): R60.0 - Localized edema (4) Venous insufficiency (chronic) (peripheral): CODE(S): I87.2 - Venous insufficiency (chronic) (peripheral) (5) Diabetes mellitus type 2, uncontrolled, with complications: CODE(S): E11.8 - Type 2 diabetes mellitus with unspecified complications; E11.65 - Type 2 diabetes mellitus with hyperglycemia PLAN: Plan Patient was evaluated at the wound healing center today. Wound care to the left anterior leg ulcer - Epifix #5 applied today. 100% of the product was used. Hydrogel was placed on top of the epifix to help prevent it from drying out. It was covered with a wound veil and secured with steri strips. The wound was covered with Mepilex. She may change the outer dressing as needed, instructed not to remove the wound veil and not to get the wound wet. Compression - Double SILVESTRE wrap. Discussed with her that if she does not consistently wear compression, she will continue to have edema issue which can lead to skin breakdown. She verbalizes understanding. Instructed her that she may take her compression off at bedtime when she is in her bed and then place it back on first thing in the morning. Encouraged diet low in carbohydrates and high in protein. Venous study from 02/10/22 showed Left small saphenous vein was patent and incompetent. The rest of the study was normal. Arterial study from 02/10/22 showed Right MARILU 1.06 and Left MARILU 1.07. Waveforms were Triphasic bilaterally. No signs of arterial disease. Wound culture from 03/08/23 positive for MSSA. She was started on Doxycycline due to her PCN allergy. Wound culture obtained 04/26/23 which was positive for Staphylococcus aureus that was resistant to Doxycycline and Bactrim, she is allergic to PCN and cephalosporins and she is on several medications that interact with Linezolid, therefore insurance approval was obtained to start her on a new medication Nuzyra which she has completed. She states that she sleeps in a chair because her bed is so uncomfortable. Encouraged her to try to lay flat for 20 minutes at a time several times a day to help with her edema. Follow up one week. Call or come in sooner if develop any concerns.
== END 2023-09-19 23:59 | disposition home or self-care (01) ==
LOC: WC 09:15
PROVIDERS: PCP Internal Medicine; Referring Provider Internal Medicine; Visit Provider Nurse Practitioner Family
DX: L97.922 Non-pressure chronic ulcer of unspecified part of left lower leg with fat layer exposed (principal); J44.9 Chronic obstructive pulmonary disease, unspecified; E11.8 Type 2 diabetes mellitus with unspecified complications; I89.0 Lymphedema, not elsewhere classified; I10 Essential (primary) hypertension; S81.801A Unspecified open wound, right lower leg, initial encounter; R60.0 Localized edema; I87.2 Venous insufficiency (chronic) (peripheral); G47.33 Obstructive sleep apnea (adult) (pediatric)
CPT/HCPCS: 15271; Q4186

== ENCOUNTER 2023-10-16 14:45 | Outpatient (RCR) | payer MEDICAID, SELFPAY ==
[2023-09-20 00:47] VITALS: BP 134/79; PULSE 71; RESP 20; TEMP 35.5; BMI 49.7
[2023-09-20 10:21] VITALS: BP 123/74; PULSE 73; RESP 18; TEMP 35.8; BMI 49.7
--- NOTE | 2023-09-20 12:19 | PCM.WC.PN ---
History of Present Illness Date of Service: 09/20/23 Chief Complaint: Left anterior leg ulcer History of Wound: 57-year-old female who originally had a traumatic hematoma in 2012 to her left anterior leg and had an operative debridement and eventually had skin graft placement. She has been seen periodically at the wound center for chronic ulcers to her legs over the years. She has most recently been seeing Dr. Chang for her wound care. Her most significant issue at this time is her edema/lymphedema. When her edema becomes severe, she develops ulcers on her legs. She has a history of T2D, COPD, chronic venous insufficiency, cellulitis, chest pain, left ventricular aneurysm, HTN, Bipolar, ADHD, ABRAM, chronic pain syndrome, GERD. Wound culture from 03/08/23 positive for Staphylococcus aureus and she was started on Doxycycline. Wound culture obtained 04/26/23 which was positive for Staphylococcus aureus that was resistant to Doxycycline and Bactrim, she is allergic to PCN and cephalosporins and she is on several medications that interact with Linezolid, therefore insurance approval was obtained to start her on a new medication Nuzyra which she started 05/02/23. She completed it Nuzyra but experienced nausea and vomiting with it. Wound culture obtained 07/26/23 which was positive for MSSA. With all her allergies and the medications that she saw infectious disease for treatment of a one time infusion of Dalbavancin. Wound Care - She has been approved for Epifix. She currently denies fever, chills. Progress of Wound: Wound measurements are smaller patient is happy with outcomes. No sign of infection tolerating EpiFix as well Subjective Subjective Patient has no concerns at this time Objective Data Objective Data Consulting and follow-up patient for another provider. Area looks good no sign of infection no redness no swelling no pain no discharge Vital Signs: Vital Signs Temp Pulse Resp BP O2 Del Method 96.4 F L 73 18 123/74 H Room Air 09/20/23 10:21 09/20/23 10:21 09/20/23 10:21 09/20/23 10:21 09/20/23 10:21 Oxygen Delivery Method Room Air Weight: 299 lb Body Mass Index (BMI) 49.7 Lab / Micro Data Attestation: I reviewed the patient's lab results. Physical Exam Const alert and oriented x3 HEENT normocephalic Lymph Lymphatic: no lymphadenopathy noted Resp normal respiratory effort Effort and Inspection: able to speak in complete sentences Auscultation: wheezes Cardio regular rate and regular rhythm GI non-tender Extremity normal capillary refill Extremity Narrative: Edema/lymphedema +3-+4 pitting bilateral legs. Oozing serous drainage where ulcers are located. Skin Wound Narrative: Left proximal anterior leg ulcer cluster and left distal anterior leg ulcer are small, pink, oozing serous drainage from the amount of edema. Neuro Speech: speech normal Psych Psych Narrative: Flat affect Speech: normal speech Debridement Note Debridement Note Wound debrided: Anterior leg proximal ulcer Laterality: Left Wound Grade/Stage: Stage II Type of Debridement: Excisional debridement Anesthesia Used: 5% Lidocaine Gel Depth: Down to and including healthy tissue and in the subcutaneous layer Percentage of wound debrided: 100 Instrument Used: 5mm curette Tissue Removed: Devitalized tissue and slough Severity: Limited To Skin Breakdown Amount of bleeding with debridement: Mild Bleeding Controlled with: Pressure and Compression and gauze Patient tolerated procedure: Patient tolerated procedure well Post-Debridement Measurements and Additional Note: Post-Debridement Measurements/Treatment - Nurse 1 - General Ulcer Assessment Start: 09/20/23 10:20 Freq: Status: Active Protocol: [email or web address].STEVEN Activity Type Activity Date Activity User E-sign Co-sign Detail Recorded Client Recorded Date Recorded By Document 09/20/23 10:21 [facility] Desktop 09/20/23 10:27 [facility] 09/20/23 10:21 - Today's Visit Information Type of service Follow-up Visit (Physician/LICENSE ISSUER ) Arrival Mode Ambulatory Transfer Assistance None Patient Identification Verified (Name & Yes ) Patient Requires Transmission-Based No Precautions Height and Weight Body Mass Index (BMI) 49.7 BMI Classification Obese Vital Signs Temperature (97.8 F-99.1 F) 96.4 F L Temperature Source Temporal Pulse Rate (60-100) 73 Respiratory Rate (12-18) 18 Respiratory rate source Observation Oxygen Delivery Method Room Air Blood Pressure (90/60-120/80) 123/74 H Blood Pressure Mean (mm Hg) 90 Source Monitor Position Sitting Blood Pressure Location Left Forearm History Since Last Visit- (Skip if this is Patient's initial visit) Have you changed medications since your No last visit? Any new allergies or adverse reactions No Had a fall/change in ADL's that may No increase risk of falls Signs or symptoms of abuse and/or No neglect since last visit Have you been in the hospital since your No last visit? Has dressing in place as prescribed Yes Has compression in place as prescribed Yes Has offloadiing in place as prescribed N/A Experienced any changes in pain level or No management Left Footwear Regular Shoe Right Footwear Regular Shoe Pain Scale: 0-10 Numeric Is Patient Pain Free? Yes WC - Nurse 1 - General Ulcer Measurement Start: 09/20/23 10:20 Freq: Status: Active Protocol: Activity Type Activity Date Activity User E-sign Co-sign Detail Recorded Client Recorded Date Recorded By Document 09/20/23 10:21 [facility] Desktop 09/20/23 10:27 [facility] 09/20/23 10:21 Wound Center Nurse 1 #7- L TORRES -Combined with other wound No -Current Size (cm) - Length 1.5 -Current Size (cm) - Width 1.1 -Current Size (cm) - Depth 0.2 -Total Square Cm 1.65 -Photo Taken No -Tunneling No -Undermining/Tunneling No -Circular Undermining No -Exudate Amt Medium -Exudate Type Serosanguineous -Wound Margin Distinct, Outline Attached -Granulation Amt Medium (34-66%) -Granulation Quality Red -Slough/Fibrin Yes -Necrosis Amt Medium (34-66%) -Necrotic Tissue Type Adherent Slough -Texture (Verónica-wound Skin Appearance) Assessed, Scarring -Moisture (Verónica-wound Skin Appearance) Assessed,Dry/ Scaly -Color (Verónica-wound Skin Appearance) Assessed, Hemosiderin Staining -Temperature (Verónica-wound Skin No Abnormality Appearance) (Pt Warm) -Tenderness on Palpation (Verónica-wound No Skin Appearance) -Ulcer Cleansing Soap and Water -Foul Odor after Cleansing No -Anesthetic Used 5% Lidocaine Gel Lower Limb Edema Present Yes Left Calf (cm) 53.4 Left Ankle (cm) 22.8 WC - Nurse 2 - General Ulcer CM Notes Start: 09/20/23 10:20 Freq: Status: Active Protocol: Activity Type Activity Date Activity User E-sign Co-sign Detail Recorded Client Recorded Date Recorded By Document 09/20/23 10:33 [facility] Desktop 09/20/23 10:39 MW 09/20/23 10:33 Wound Center Nurse 2 #7- L TORRES -Time 10:37 -Correct Patient Yes -Correct Side, Site, Position Yes -Correct Procedure Yes -Procedure Performed Yes -Type of Procedure Debridement -Clinical Debridement Subcutaneous -Tissue Removed Subcutaneous -Post Debridement (cm) - Length 1.8 -Post Debridement (cm) - Width 1.0 -Post Debridement (cm) - Depth 0.3 -Total Square (Post) (cm) 1.80 -Area of Debridement (cm) - Length 1.8 -Area of Debridement (cm) - Width 1.0 -Total Square (Area) (cm) 1.80 -Tunneling No -Undermining/Tunneling No -Circular Undermining No -Wound/Ulcer Outcome Not Healed -Ulcer Cleansing Rinsed/ Irrigated with Saline -Foul Odor after Cleansing No -Bioengineered Tissue Yes -Type of Bioengineered Tissue Epifix 18mm Disc -Expiration Date 05/20/28 -Product Lot Number [id number] -Percent Used 100 -Lot number of Saline Used [id number] -Bleeding Controlled with Pressure -Treatment Response Procedure Tolerated Well -Offloading No -Debridement - Subq, 1st 20sq cm No -Apply Skin Sub - 1st 25 sq cm - Legs 1 -Epifix 18mm Disc 3 Pain Scale: 0-10 Numeric Is Patient Pain Free? Yes - Nurse 3 - General Ulcer D/C NN Start: 09/20/23 10:20 Freq: Status: Active Protocol: Activity Type Activity Date Activity User E-sign Co-sign Detail Recorded Client Recorded Date Recorded By Document 09/20/23 10:46 [facility] Desktop 09/20/23 10:47 [facility] 09/20/23 10:46 Wound Care Center Nurse 3 #7- L TORRES -Primary Dressing Applied Mepilex Border -Other Dressing epifix -Primary Dressing Covered/Secured with Dry Gauze -Mepilex Border 1 Left -Compression Wrap Silvestre Wrap Treatment Response Procedure Tolerated Well Pain Scale: 0-10 Numeric Is Patient Pain Free? Yes - Visit Discharge Discharge Condition Stable Ambulatory Status Ambulatory Transportation Private Auto Assessment/Plan Assessment/Plan (1) Chronic ulcer of left leg with fat layer exposed: CODE(S): L97.922 - Non-pressure chronic ulcer of unspecified part of left lower leg with fat layer exposed (2) Wound of right lower extremity: CODE(S): S81.801A - Unspecified open wound, right lower leg, initial encounter QUALIFIERS: Encounter type: initial encounter Qualified Code(s): S81.801A - Unspecified open wound, right lower leg, initial encounter (3) Edema of both lower extremities: CODE(S): R60.0 - Localized edema (4) Venous insufficiency (chronic) (peripheral): CODE(S): I87.2 - Venous insufficiency (chronic) (peripheral) (5) Diabetes mellitus type 2, uncontrolled, with complications: CODE(S): E11.8 - Type 2 diabetes mellitus with unspecified complications; E11.65 - Type 2 diabetes mellitus with hyperglycemia PLAN: Plan Patient was evaluated at the wound healing center today. Wound care to the left anterior leg ulcer - Epifix #6 applied today. 100% of the product was used. Hydrogel was placed on top of the epifix to help prevent it from drying out. It was covered with a wound veil and secured with steri strips. The wound was covered with Mepilex. She may change the outer dressing as needed, instructed not to remove the wound veil and not to get the wound wet. Compression - Double SILVESTRE wrap. Follow-up in 1 week with her regular physician
[2023-09-27 09:38] VITALS: BP 161/85; PULSE 59; RESP 20; TEMP 36.4; BMI 49.7
--- NOTE | 2023-09-27 16:19 | PN.PCM_ITS ---
History of Present Illness Date of Service: 09/27/23 Chief Complaint: Left anterior leg ulcer History of Wound: 57-year-old female who originally had a traumatic hematoma in 2012 to her left anterior leg and had an operative debridement and eventually had skin graft placement. She has been seen periodically at the wound center for chronic ulcers to her legs over the years. She has most recently been seeing Dr. Chang for her wound care. Her most significant issue at this time is her edema/lymphedema. When her edema becomes severe, she develops ulcers on her legs. She has a history of T2D, COPD, chronic venous insufficiency, cellulitis, chest pain, left ventricular aneurysm, HTN, Bipolar, ADHD, ABRAM, chronic pain syndrome, GERD. Wound culture from 03/08/23 positive for Staphylococcus aureus and she was started on Doxycycline. Wound culture obtained 04/26/23 which was positive for Staphylococcus aureus that was resistant to Doxycycline and Bactrim, she is allergic to PCN and cephalosporins and she is on several medications that interact with Linezolid, therefore insurance approval was obtained to start her on a new medication Nuzyra which she started 05/02/23. She completed it Nuzyra but experienced nausea and vomiting with it. Wound culture obtained 07/26/23 which was positive for MSSA. With all her allergies and the medications that she saw infectious disease for treatment of a one time infusion of Dalbavancin. Wound Care - She has been approved for Epifix. She currently denies fever, chills. Progress of Wound: Wound measurements are smaller. Tolerating EpiFix as well Objective Data Objective Data Vital Signs: Vital Signs Temp Pulse Resp BP O2 Del Method 97.6 F L 59 L 20 H 161/85 H Room Air 09/27/23 09:38 09/27/23 09:38 09/27/23 09:38 09/27/23 09:38 09/27/23 09:38 Oxygen Delivery Method Room Air Weight: 299 lb Body Mass Index (BMI) 49.7 Charges/Coding Procedures Integumentary 150xxx-152xx: 01974 Skin sub graft trnk/arm/leg Debridement Note Debridement Note Wound debrided: Anterior leg proximal ulcer Laterality: Left Type of Debridement: Excisional debridement Anesthesia Used: 5% Lidocaine Gel Depth: Down to and including healthy tissue and in the subcutaneous layer Percentage of wound debrided: 100 Instrument Used: 5mm curette Tissue Removed: Devitalized tissue and slough Severity: Limited To Skin Breakdown Amount of bleeding with debridement: Mild Bleeding Controlled with: Pressure and Compression and gauze Patient tolerated procedure: Patient tolerated procedure well Post-Debridement Measurements and Additional Note: Post-Debridement Measurements/Treatment - Nurse 1 - General Ulcer Assessment Start: 09/20/23 10:20 Freq: Status: Active Protocol: [email or web address].LOWEXT Activity Type Activity Date Activity User E-sign Co-sign Detail Recorded Client Recorded Date Recorded By Document 09/20/23 10:21 [facility] Desktop 09/20/23 10:27 BM Document 09/27/23 09:38 KW Desktop 09/27/23 09:50 KW 09/20/23 09/27/23 10:21 09:38 - Today's Visit Information Type of service Follow-up Visit Follow-up Visit (Physician/PLANNING SUPERVISOR (Physician/PLANNING SUPERVISOR ) ) Arrival Mode Ambulatory Ambulatory Transfer Assistance None Patient Identification Verified (Name & Yes Yes ) Patient Requires Transmission-Based No Precautions Height and Weight Body Mass Index (BMI) 49.7 49.7 BMI Classification Obese Obese Vital Signs Temperature (97.8 F-99.1 F) 96.4 F L 97.6 F L Temperature Source Temporal Temporal Pulse Rate (60-100) 73 59 L Pulse Location Monitor Respiratory Rate (12-18) 18 20 H Respiratory rate source Observation Observation Oxygen Delivery Method Room Air Room Air Blood Pressure (90/60-120/80) 123/74 H 161/85 H Blood Pressure Mean (mm Hg) 90 110 Source Monitor Monitor Position Sitting Semi-Fowlers Blood Pressure Location Left Forearm Right Forearm History Since Last Visit- (Skip if this is Patient's initial visit) Have you changed medications since your No No last visit? Any new allergies or adverse reactions No No Had a fall/change in ADL's that may No Yes increase risk of falls Signs or symptoms of abuse and/or No No neglect since last visit Have you been in the hospital since your No No last visit? Has dressing in place as prescribed Yes Yes Has compression in place as prescribed Yes Yes Has offloadiing in place as prescribed N/A No Experienced any changes in pain level or No No management Left Footwear Regular Shoe Regular Shoe Right Footwear Regular Shoe Regular Shoe Pain Scale: 0-10 Numeric Is Patient Pain Free? Yes No LT leg -Description Sharp -Intensity 8 -Alleviating Factors/Interventions Medication, Medicate when due WC - Nurse 1 - General Ulcer Measurement Start: 09/20/23 10:20 Freq: Status: Active Protocol: Activity Type Activity Date Activity User E-sign Co-sign Detail Recorded Client Recorded Date Recorded By Document 09/20/23 10:21 [facility] Desktop 09/20/23 10:27 [facility] Document 09/27/23 09:38 KW Desktop 09/27/23 09:50 KW 09/20/23 09/27/23 10:21 09:38 Wound Center Nurse 1 #7- L TORRES -Combined with other wound No -Current Size (cm) - Length 1.5 2 -Current Size (cm) - Width 1.1 1.5 -Current Size (cm) - Depth 0.2 0.2 -Total Square Cm 1.65 3.0 -Photo Taken No -Tunneling No -Undermining/Tunneling No -Circular Undermining No -Exudate Amt Medium Small -Exudate Type Serosanguineous Serosanguineous -Wound Margin Distinct, Distinct, Outline Outline Attached Attached -Granulation Amt Medium (34-66%) Medium (34-66%) -Granulation Quality [place] -Slough/Fibrin Yes -Necrosis Amt Medium (34-66%) Small (1-33%) -Necrotic Tissue Type Adherent Slough Adherent Slough -Texture (Verónica-wound Skin Appearance) Assessed, Assessed Scarring -Moisture (Verónica-wound Skin Appearance) Assessed,Dry/ Assessed Scaly -Color (Verónica-wound Skin Appearance) Assessed, Assessed Hemosiderin Staining -Temperature (Verónica-wound Skin No Abnormality No Abnormality Appearance) (Pt Warm) (Pt Warm) -Tenderness on Palpation (Verónica-wound No Skin Appearance) -Ulcer Cleansing Soap and Water Soap and Water -Foul Odor after Cleansing No No -Anesthetic Used 5% Lidocaine 5% Lidocaine Gel Gel Lower Limb Edema Present Yes Left Calf (cm) 53.4 56 Left Ankle (cm) 22.8 24 WC - Nurse 2 - General Ulcer CM Notes Start: 09/20/23 10:20 Freq: Status: Active Protocol: Activity Type Activity Date Activity User E-sign Co-sign Detail Recorded Client Recorded Date Recorded By Document 09/20/23 10:33 MW Desktop 09/20/23 10:39 MW Document 09/27/23 10:03 JF Laptop 09/27/23 10:09 JF 09/20/23 09/27/23 10:33 10:03 Wound Center Nurse 2 #7- L TORRES -Time 10:37 10:04 -Correct Patient Yes Yes -Correct Side, Site, Position Yes Yes -Correct Procedure Yes Yes -Procedure Performed Yes Yes -Type of Procedure Debridement Debridement -Clinical Debridement Subcutaneous Subcutaneous -Tissue Removed Subcutaneous Subcutaneous -Post Debridement (cm) - Length 1.8 1.9 -Post Debridement (cm) - Width 1.0 0.9 -Post Debridement (cm) - Depth 0.3 0.2 -Total Square (Post) (cm) 1.80 1.71 -Area of Debridement (cm) - Length 1.8 1.9 -Area of Debridement (cm) - Width 1.0 0.9 -Total Square (Area) (cm) 1.80 1.71 -Tunneling No No -Undermining/Tunneling No No -Circular Undermining No No -Wound/Ulcer Outcome Not Healed Not Healed -Ulcer Cleansing Rinsed/ Rinsed/ Irrigated with Irrigated with Saline Saline -Foul Odor after Cleansing No No -Bioengineered Tissue Yes Yes -Type of Bioengineered Tissue Epifix 18mm Epifix 18mm Disc Disc -Expiration Date 05/20/28 05/20/28 -Product Lot Number [id number] -Percent Used 100 100 -Lot number of Saline Used [id number] -Bleeding Controlled with Pressure Pressure -Treatment Response Procedure Procedure Tolerated Well Tolerated Well -Offloading No No -Debridement - Subq, 1st 20sq cm No No -Apply Skin Sub - 1st 25 sq cm - Legs 1 1 -Epifix 18mm Disc 3 3 Pain Scale: 0-10 Numeric Is Patient Pain Free? Yes Yes WC - Nurse 3 - General Ulcer D/C NN Start: 09/20/23 10:20 Freq: Status: Active Protocol: Activity Type Activity Date Activity User E-sign Co-sign Detail Recorded Client Recorded Date Recorded By Document 09/20/23 10:46 [facility] Desktop 09/20/23 10:47 BM Document 09/27/23 10:23 KW Desktop 09/27/23 10:28 KW 09/20/23 09/27/23 10:46 10:23 Wound Care Center Nurse 3 #7- L TORRES -Primary Dressing Applied Mepilex Border Mepilex Border -Other Dressing epifix -Primary Dressing Covered/Secured with Dry Gauze Dry Gauze -Mepilex Border 1 1 Left -Compression Wrap Silvestre Wrap Silvestre Wrap Treatment Response Procedure Tolerated Well Pain Scale: 0-10 Numeric Is Patient Pain Free? Yes No WC - Visit Discharge Discharge Condition Stable Stable Ambulatory Status Ambulatory Ambulatory Transportation Private Auto Private Auto Medication Reconcilliation completed & No provided to patient/care provider Clinical Summary of Care Provided Yes Assessment/Plan Assessment/Plan (1) Chronic ulcer of left leg with fat layer exposed: CODE(S): L97.922 - Non-pressure chronic ulcer of unspecified part of left lower leg with fat layer exposed (2) Wound of right lower extremity: CODE(S): S81.801A - Unspecified open wound, right lower leg, initial encounter QUALIFIERS: Encounter type: initial encounter Qualified Code(s): S81.801A - Unspecified open wound, right lower leg, initial encounter (3) Edema of both lower extremities: CODE(S): R60.0 - Localized edema (4) Venous insufficiency (chronic) (peripheral): CODE(S): I87.2 - Venous insufficiency (chronic) (peripheral) (5) Diabetes mellitus type 2, uncontrolled, with complications: CODE(S): E11.8 - Type 2 diabetes mellitus with unspecified complications; E11.65 - Type 2 diabetes mellitus with hyperglycemia PLAN: Plan Patient was evaluated at the wound healing center today. Wound care to the left anterior leg ulcer - Epifix #7 applied today. 100% of the product was used. Hydrogel was placed on top of the epifix to help prevent it from drying out. It was covered with a wound veil and secured with steri strips. The wound was covered with Mepilex. She may change the outer dressing as needed, instructed not to remove the wound veil and not to get the wound wet. Compression - Double SILVESTRE wrap. Follow-up in 1 week.
[2023-10-02 14:27] VITALS: BP 163/97; PULSE 69; RESP 18; TEMP 36.1; O2SAT 95; BMI 49.7
--- NOTE | 2023-10-02 15:01 | PN.PCM_ITS ---
History of Present Illness Date of Service: 10/02/23 Chief Complaint: Left anterior leg ulcer History of Wound: 57-year-old female who originally had a traumatic hematoma in 2012 to her left anterior leg and had an operative debridement and eventually had skin graft placement. She has been seen periodically at the wound center for chronic ulcers to her legs over the years. She has most recently been seeing Dr. Chang for her wound care. Her most significant issue at this time is her edema/lymphedema. When her edema becomes severe, she develops ulcers on her legs. She has a history of T2D, COPD, chronic venous insufficiency, cellulitis, chest pain, left ventricular aneurysm, HTN, Bipolar, ADHD, ABRAM, chronic pain syndrome, GERD. Wound culture from 03/08/23 positive for Staphylococcus aureus and she was started on Doxycycline. Wound culture obtained 04/26/23 which was positive for Staphylococcus aureus that was resistant to Doxycycline and Bactrim, she is allergic to PCN and cephalosporins and she is on several medications that interact with Linezolid, therefore insurance approval was obtained to start her on a new medication Nuzyra which she started 05/02/23. She completed it Nuzyra but experienced nausea and vomiting with it. Wound culture obtained 07/26/23 which was positive for MSSA. With all her allergies and the medications that she saw infectious disease for treatment of a one time infusion of Dalbavancin. Wound Care - She has been approved for Epifix. She currently denies fever, chills. Progress of Wound: Wound measurement slightly smaller. Tolerating EpiFix well. Objective Data Objective Data Vital Signs: Vital Signs Temp Pulse Resp BP Pulse Ox O2 Del Method 97 F L 69 18 163/97 H 95 Room Air 10/02/23 14:27 10/02/23 14:27 10/02/23 14:27 10/02/23 14:27 10/02/23 14:27 10/02/23 14:27 Oxygen Delivery Method Room Air Weight: 299 lb Body Mass Index (BMI) 49.7 Charges/Coding Procedures Integumentary 150xxx-152xx: [id number] Skin sub graft trnk/arm/leg Debridement Note Debridement Note Wound debrided: Anterior leg proximal ulcer Laterality: Left Type of Debridement: Excisional debridement Anesthesia Used: 5% Lidocaine Gel Depth: Down to and including healthy tissue and in the subcutaneous layer Percentage of wound debrided: 100 Instrument Used: 5mm curette Tissue Removed: Devitalized tissue and slough Severity: Limited To Skin Breakdown Amount of bleeding with debridement: Mild Bleeding Controlled with: Pressure and Compression and gauze Patient tolerated procedure: Patient tolerated procedure well Post-Debridement Measurements and Additional Note: Post-Debridement Measurements/Treatment WC - Nurse 1 - General Ulcer Assessment Start: 09/20/23 10:20 Freq: Status: Active Protocol: PERRY Activity Type Activity Date Activity User E-sign Co-sign Detail Recorded Client Recorded Date Recorded By Document 09/20/23 10:21 [email or web address] Desktop 09/20/23 10:27 [email or web address] Document 09/27/23 09:38 KW Desktop 09/27/23 09:50 KW Document 10/02/23 14:27 [facility] Desktop 10/02/23 14:35 BMF 09/20/23 09/27/23 10/02/23 10:21 09:38 14:27 WC - Today's Visit Information Type of service Follow-up Visit Follow-up Visit Follow-up Visit (Physician/NUCLEAR OPERATOR (Physician/NUCLEAR OPERATOR (Physician/NUCLEAR OPERATOR ) ) ) Arrival Mode Ambulatory Ambulatory Ambulatory Transfer Assistance None None Patient Identification Verified (Name & Yes Yes Yes ) Patient Requires Transmission-Based No No Precautions Height and Weight Body Mass Index (BMI) 49.7 49.7 49.7 BMI Classification Obese Obese Obese Vital Signs Temperature (97.8 F-99.1 F) 96.4 F L 97.6 F L 97 F L Temperature Source Temporal Temporal Temporal Pulse Rate (60-100) 73 59 L 69 Pulse Location Monitor Monitor Respiratory Rate (12-18) 18 20 H 18 Respiratory rate source Observation Observation Observation Pulse Oximetry 95 Oxygen Delivery Method Room Air Room Air Room Air Blood Pressure (90/60-120/80) 123/74 H 161/85 H 163/97 H Blood Pressure Mean (mm Hg) 90 110 119 Source Monitor Monitor Monitor Position Sitting Semi-Fowlers Sitting Blood Pressure Location Left Forearm Right Forearm Left Arm History Since Last Visit- (Skip if this is Patient's initial visit) Have you changed medications since your No No No last visit? Any new allergies or adverse reactions No No No Had a fall/change in ADL's that may No Yes No increase risk of falls Signs or symptoms of abuse and/or No No No neglect since last visit Have you been in the hospital since your No No No last visit? Has dressing in place as prescribed Yes Yes Yes Has compression in place as prescribed Yes Yes Yes Has offloadiing in place as prescribed N/A No N/A Experienced any changes in pain level or No No No management Left Footwear Regular Shoe Regular Shoe Regular Shoe Right Footwear Regular Shoe Regular Shoe Regular Shoe Pain Scale: 0-10 Numeric Is Patient Pain Free? Yes No Yes LT leg -Description Sharp -Intensity 8 -Alleviating Factors/Interventions Medication, Medicate when due WC - Nurse 1 - General Ulcer Measurement Start: 09/20/23 10:20 Freq: Status: Active Protocol: Activity Type Activity Date Activity User E-sign Co-sign Detail Recorded Client Recorded Date Recorded By Document 09/20/23 10:21 [facility] Desktop 09/20/23 10:27 [employer] Document 09/27/23 09:38 KW Desktop 09/27/23 09:50 KW Document 10/02/23 14:27 [facility] Desktop 10/02/23 14:35 [facility] 09/20/23 09/27/23 10/02/23 10:21 09:38 14:27 Wound Center Nurse 1 #7- L TORRES -Combined with other wound No No -Current Size (cm) - Length 1.5 2 1.6 -Current Size (cm) - Width 1.1 1.5 1.2 -Current Size (cm) - Depth 0.2 0.2 0.2 -Total Square Cm 1.65 3.0 1.92 -Photo Taken No No -Epithelialization Small 1-33% -Tunneling No No -Undermining/Tunneling No No -Circular Undermining No No -Exudate Amt Medium Small Medium -Exudate Type Serosanguineous Serosanguineous Serosanguineous -Wound Margin Distinct, Distinct, Distinct, Outline Outline Outline Attached Attached Attached -Granulation Amt Medium (34-66%) Medium (34-66%) Medium (34-66%) -Granulation Quality [place] Red -Slough/Fibrin Yes Yes -Necrosis Amt Medium (34-66%) Small (1-33%) Medium (34-66%) -Necrotic Tissue Type Adherent Slough Adherent Slough Adherent Slough -Texture (Verónica-wound Skin Appearance) Assessed, Assessed Assessed Scarring -Moisture (Verónica-wound Skin Appearance) Assessed,Dry/ Assessed Assessed,Dry/ Scaly Scaly -Color (Verónica-wound Skin Appearance) Assessed, Assessed Assessed, Hemosiderin Hemosiderin Staining Staining -Temperature (Verónica-wound Skin No Abnormality No Abnormality No Abnormality Appearance) (Pt Warm) (Pt Warm) (Pt Warm) -Tenderness on Palpation (Verónica-wound No No Skin Appearance) -Ulcer Cleansing Soap and Water Soap and Water Soap and Water -Foul Odor after Cleansing No No No -Anesthetic Used 5% Lidocaine 5% Lidocaine 5% Lidocaine Gel Gel Gel Lower Limb Edema Present Yes Yes Left Calf (cm) 53.4 56 51.5 Left Ankle (cm) 22.8 24 22.6 WC - Nurse 2 - General Ulcer CM Notes Start: 09/20/23 10:20 Freq: Status: Active Protocol: Activity Type Activity Date Activity User E-sign Co-sign Detail Recorded Client Recorded Date Recorded By Document 09/20/23 10:33 MW Desktop 09/20/23 10:39 MW Document 09/27/23 10:03 Laptop 09/27/23 10:09 Document 10/02/23 14:41 Laptop 10/02/23 14:46 09/20/23 09/27/23 10/02/23 10:33 10:03 14:41 Wound Center Nurse 2 #7- L TORRES -Time 10:37 10:04 14:44 -Correct Patient Yes Yes Yes -Correct Side, Site, Position Yes Yes Yes -Correct Procedure Yes Yes Yes -Procedure Performed Yes Yes Yes -Type of Procedure Debridement Debridement Debridement -Clinical Debridement Subcutaneous Subcutaneous Subcutaneous -Tissue Removed Subcutaneous Subcutaneous Subcutaneous -Post Debridement (cm) - Length 1.8 1.9 1.8 -Post Debridement (cm) - Width 1.0 0.9 1.0 -Post Debridement (cm) - Depth 0.3 0.2 0.2 -Total Square (Post) (cm) 1.80 1.71 1.80 -Area of Debridement (cm) - Length 1.8 1.9 1.8 -Area of Debridement (cm) - Width 1.0 0.9 1.0 -Total Square (Area) (cm) 1.80 1.71 1.80 -Tunneling No No No -Undermining/Tunneling No No No -Circular Undermining No No No -Wound/Ulcer Outcome Not Healed Not Healed Not Healed -Ulcer Cleansing Rinsed/ Rinsed/ Rinsed/ Irrigated with Irrigated with Irrigated with Saline Saline Saline -Foul Odor after Cleansing No No No -Bioengineered Tissue Yes Yes Yes -Type of Bioengineered Tissue Epifix 18mm Epifix 18mm Epifix 18mm Disc Disc Disc -Expiration Date 05/20/28 05/20/28 05/20/28 -Product Lot Number [id number] -Percent Used 100 100 100 -Lot number of Saline Used [id number] -Bleeding Controlled with Pressure Pressure Pressure -Treatment Response Procedure Procedure Procedure Tolerated Well Tolerated Well Tolerated Well -Offloading No No No -Debridement - Subq, 1st 20sq cm No No No -Apply Skin Sub - 1st 25 sq cm - Legs 1 1 1 -Epifix 18mm Disc 3 3 3 Pain Scale: 0-10 Numeric Is Patient Pain Free? Yes Yes Yes - Nurse 3 - General Ulcer D/C NN Start: 09/20/23 10:20 Freq: Status: Active Protocol: Activity Type Activity Date Activity User E-sign Co-sign Detail Recorded Client Recorded Date Recorded By Document 09/20/23 10:46 [facility] [employer] 09/20/23 10:47 [facility] Document 09/27/23 10:23 KW Desktop 09/27/23 10:28 KW Document 10/02/23 14:50 Desktop 10/02/23 14:51 09/20/23 09/27/23 10/02/23 10:46 10:23 14:50 Wound Care Center Nurse 3 #7- L TORRES -Ulcer Cleansing Not Cleansed -Primary Dressing Applied Mepilex Border Mepilex Border Mepilex Border -Other Dressing epifix -Primary Dressing Covered/Secured with Dry Gauze Dry Gauze -Mepilex Border 1 1 1 Left -Lotion applied to leg before No compression wrap -Compression Wrap Silvestre Wrap Silvestre Wrap Silvestre Wrap Treatment Response Procedure Tolerated Well Pain Scale: 0-10 Numeric Is Patient Pain Free? Yes No Yes - Visit Discharge Discharge Condition Stable Stable Stable Ambulatory Status Ambulatory Ambulatory Ambulatory Transportation Private Auto Private Auto Private Auto Medication Reconcilliation completed & No Yes provided to patient/care provider Clinical Summary of Care Provided Yes Yes Assessment/Plan Assessment/Plan (1) Chronic ulcer of left leg with fat layer exposed: CODE(S): L97.922 - Non-pressure chronic ulcer of unspecified part of left lower leg with fat layer exposed (2) Wound of right lower extremity: CODE(S): S81.801A - Unspecified open wound, right lower leg, initial encounter QUALIFIERS: Encounter type: initial encounter Qualified Code(s): S81.801A - Unspecified open wound, right lower leg, initial encounter (3) Edema of both lower extremities: CODE(S): R60.0 - Localized edema (4) Venous insufficiency (chronic) (peripheral): CODE(S): I87.2 - Venous insufficiency (chronic) (peripheral) (5) Diabetes mellitus type 2, uncontrolled, with complications: CODE(S): E11.8 - Type 2 diabetes mellitus with unspecified complications; E11.65 - Type 2 diabetes mellitus with hyperglycemia PLAN: Plan Patient was evaluated at the wound healing center today. Wound care to the left anterior leg ulcer - Epifix #8 applied today. 100% of the product was used. Hydrogel was placed on top of the epifix to help prevent it from drying out. It was covered with a wound veil and secured with steri strips. The wound was covered with Mepilex. She may change the outer dressing as needed, instructed not to remove the wound veil and not to get the wound wet. Compression - Double SILVESTRE wrap. Follow-up in 1 week.
[2023-10-09 14:19] VITALS: BP 185/69; PULSE 75; TEMP 35.9; BMI 49.7
--- NOTE | 2023-10-09 22:20 | PCM.WC.PN ---
History of Present Illness Date of Service: 10/09/23 Chief Complaint: Left anterior leg ulcer History of Wound: 57-year-old female who originally had a traumatic hematoma in 2012 to her left anterior leg and had an operative debridement and eventually had skin graft placement. She has been seen periodically at the wound center for chronic ulcers to her legs over the years. She has most recently been seeing Dr. Chang for her wound care. Her most significant issue at this time is her edema/lymphedema. When her edema becomes severe, she develops ulcers on her legs. She has a history of T2D, COPD, chronic venous insufficiency, cellulitis, chest pain, left ventricular aneurysm, HTN, Bipolar, ADHD, ABRAM, chronic pain syndrome, GERD. Wound culture from 03/08/23 positive for Staphylococcus aureus and she was started on Doxycycline. Wound culture obtained 04/26/23 which was positive for Staphylococcus aureus that was resistant to Doxycycline and Bactrim, she is allergic to PCN and cephalosporins and she is on several medications that interact with Linezolid, therefore insurance approval was obtained to start her on a new medication Nuzyra which she started 05/02/23. She completed it Nuzyra but experienced nausea and vomiting with it. Wound culture obtained 07/26/23 which was positive for MSSA. With all her allergies and the medications that she saw infectious disease for treatment of a one time infusion of Dalbavancin. Wound Care - She has been approved for Epifix. She currently denies fever, chills. Progress of Wound: Wound measurement slightly smaller. Tolerating EpiFix well. Epifix #9 applied today. Objective Data Objective Data Vital Signs: Vital Signs Temp Pulse Resp BP Pulse Ox O2 Del Method 96.7 F L 75 18 185/69 H 95 Room Air 10/09/23 14:19 10/09/23 14:19 10/02/23 14:27 10/09/23 14:19 10/02/23 14:27 10/09/23 14:19 Oxygen Delivery Method Room Air Weight: 299 lb Body Mass Index (BMI) 49.7 Charges/Coding Procedures Integumentary 150xxx-152xx: [id number] Skin sub graft trnk/arm/leg Debridement Note Debridement Note Wound debrided: Anterior leg proximal ulcer Laterality: Left Type of Debridement: Excisional debridement Anesthesia Used: 5% Lidocaine Gel Depth: Down to and including healthy tissue and in the subcutaneous layer Percentage of wound debrided: 100 Instrument Used: 5mm curette Tissue Removed: Devitalized tissue and slough Severity: Limited To Skin Breakdown Amount of bleeding with debridement: Mild Bleeding Controlled with: Pressure and Compression and gauze Patient tolerated procedure: Patient tolerated procedure well Post-Debridement Measurements and Additional Note: Post-Debridement Measurements/Treatment - Nurse 1 - General Ulcer Assessment Start: 09/20/23 10:20 Freq: Status: Active Protocol: PERRY Activity Type Activity Date Activity User E-sign Co-sign Detail Recorded Client Recorded Date Recorded By Document 09/20/23 10:21 BM Desktop 09/20/23 10:27 BM Document 09/27/23 09:38 KW Desktop 09/27/23 09:50 KW Document 10/02/23 14:27 [facility] Desktop 10/02/23 14:35 BM Document 10/09/23 14:19 GM Desktop 10/09/23 14:29 GM 09/20/23 09/27/23 10/02/23 10:21 09:38 14:27 - Today's Visit Information Type of service Follow-up Visit Follow-up Visit Follow-up Visit (Physician/LIVE IN COMPANION (Physician/LIVE IN COMPANION (Physician/LIVE IN COMPANION ) ) ) Arrival Mode Ambulatory Ambulatory Ambulatory Transfer Assistance None None Patient Identification Verified (Name & Yes Yes Yes ) Patient Requires Transmission-Based No No Precautions Height and Weight Body Mass Index (BMI) 49.7 49.7 49.7 BMI Classification Obese Obese Obese Vital Signs Temperature (97.8 F-99.1 F) 96.4 F L 97.6 F L 97 F L Temperature Source Temporal Temporal Temporal Pulse Rate (60-100) 73 59 L 69 Pulse Location Monitor Monitor Respiratory Rate (12-18) 18 20 H 18 Respiratory rate source Observation Observation Observation Pulse Oximetry 95 Oxygen Delivery Method Room Air Room Air Room Air Blood Pressure (90/60-120/80) 123/74 H 161/85 H 163/97 H Blood Pressure Mean (mm Hg) 90 110 119 Source Monitor Monitor Monitor Position Sitting Semi-Fowlers Sitting Blood Pressure Location Left Forearm Right Forearm Left Arm History Since Last Visit- (Skip if this is Patient's initial visit) Have you changed medications since your No No No last visit? Any new allergies or adverse reactions No No No Had a fall/change in ADL's that may No Yes No increase risk of falls Signs or symptoms of abuse and/or No No No neglect since last visit Have you been in the hospital since your No No No last visit? Has dressing in place as prescribed Yes Yes Yes Has compression in place as prescribed Yes Yes Yes Has offloadiing in place as prescribed N/A No N/A Experienced any changes in pain level or No No No management Left Footwear Regular Shoe Regular Shoe Regular Shoe Right Footwear Regular Shoe Regular Shoe Regular Shoe Pain Scale: 0-10 Numeric Is Patient Pain Free? Yes No Yes LT leg -Description Sharp -Intensity 8 -Alleviating Factors/Interventions Medication, Medicate when due 10/09/23 14:19 WC - Today's Visit Information Type of service Follow-up Visit (Physician/LIVE IN COMPANION ) Arrival Mode Ambulatory Transfer Assistance None Patient Identification Verified (Name & Yes ) Patient Requires Transmission-Based No Precautions Height and Weight Body Mass Index (BMI) 49.7 BMI Classification Obese Vital Signs Temperature (97.8 F-99.1 F) 96.7 F L Temperature Source Temporal Pulse Rate (60-100) 75 Pulse Location Monitor Respiratory Rate (12-18) Respiratory rate source Pulse Oximetry Oxygen Delivery Method Room Air Blood Pressure (90/60-120/80) 185/69 H Blood Pressure Mean (mm Hg) 107 Source Monitor Position Sitting Blood Pressure Location Left Forearm History Since Last Visit- (Skip if this is Patient's initial visit) Have you changed medications since your No last visit? Any new allergies or adverse reactions No Had a fall/change in ADL's that may No increase risk of falls Signs or symptoms of abuse and/or No neglect since last visit Have you been in the hospital since your No last visit? Has dressing in place as prescribed Yes Has compression in place as prescribed Yes Has offloadiing in place as prescribed N/A Experienced any changes in pain level or management Left Footwear Regular Shoe Right Footwear Regular Shoe Pain Scale: 0-10 Numeric Is Patient Pain Free? Yes LT leg -Description -Intensity -Alleviating Factors/Interventions - Nurse 1 - General Ulcer Measurement Start: 09/20/23 10:20 Freq: Status: Active Protocol: Activity Type Activity Date Activity User E-sign Co-sign Detail Recorded Client Recorded Date Recorded By Document 09/20/23 10:21 BMF Desktop 09/20/23 10:27 [facility] Document 09/27/23 09:38 KW Desktop 09/27/23 09:50 KW Document 10/02/23 14:27 [facility] Desktop 10/02/23 14:35 [facility] Document 10/09/23 14:19 GM Desktop 10/09/23 14:29 GM 09/20/23 09/27/23 10/02/23 10:21 09:38 14:27 Wound Center Nurse 1 #7- L TORRES -Combined with other wound No No -Current Size (cm) - Length 1.5 2 1.6 -Current Size (cm) - Width 1.1 1.5 1.2 -Current Size (cm) - Depth 0.2 0.2 0.2 -Total Square Cm 1.65 3.0 1.92 -Photo Taken No No -Epithelialization Small 1-33% -Tunneling No No -Undermining/Tunneling No No -Circular Undermining No No -Exudate Amt Medium Small Medium -Exudate Type Serosanguineous Serosanguineous Serosanguineous -Wound Margin Distinct, Distinct, Distinct, Outline Outline Outline Attached Attached Attached -Granulation Amt Medium (34-66%) Medium (34-66%) Medium (34-66%) -Granulation Quality Red [place] Red -Slough/Fibrin Yes Yes -Necrosis Amt Medium (34-66%) Small (1-33%) Medium (34-66%) -Necrotic Tissue Type Adherent Slough Adherent Slough Adherent Slough -Structure Exposed -Texture (Verónica-wound Skin Appearance) Assessed, Assessed Assessed Scarring -Moisture (Verónica-wound Skin Appearance) Assessed,Dry/ Assessed Assessed,Dry/ Scaly Scaly -Color (Verónica-wound Skin Appearance) Assessed, Assessed Assessed, Hemosiderin Hemosiderin Staining Staining -Temperature (Verónica-wound Skin No Abnormality No Abnormality No Abnormality Appearance) (Pt Warm) (Pt Warm) (Pt Warm) -Tenderness on Palpation (Verónica-wound No No Skin Appearance) -Ulcer Cleansing Soap and Water Soap and Water Soap and Water -Foul Odor after Cleansing No No No -Anesthetic Used 5% Lidocaine 5% Lidocaine 5% Lidocaine Gel Gel Gel Lower Limb Edema Present Yes Yes Left Calf (cm) 53.4 56 51.5 Left Ankle (cm) 22.8 24 22.6 10/09/23 14:19 Wound Center Nurse 1 #7- L TORRES -Combined with other wound No -Current Size (cm) - Length 1.5 -Current Size (cm) - Width 1.2 -Current Size (cm) - Depth 0.2 -Total Square Cm 1.80 -Photo Taken No -Epithelialization Small 1-33% -Tunneling No -Undermining/Tunneling No -Circular Undermining No -Exudate Amt Medium -Exudate Type Yellow/Green -Wound Margin Distinct, Outline Attached -Granulation Amt Medium (34-66%) -Granulation Quality Pale -Slough/Fibrin -Necrosis Amt Medium (34-66%) -Necrotic Tissue Type -Structure Exposed N/A -Texture (Verónica-wound Skin Appearance) Assessed, Scarring -Moisture (Verónica-wound Skin Appearance) Assessed -Color (Verónica-wound Skin Appearance) Assessed -Temperature (Verónica-wound Skin No Abnormality Appearance) (Pt Warm) -Tenderness on Palpation (Verónica-wound No Skin Appearance) -Ulcer Cleansing Soap and Water -Foul Odor after Cleansing -Anesthetic Used 5% Lidocaine Gel Lower Limb Edema Present No Left Calf (cm) 55.7 Left Ankle (cm) 24.5 WC - Nurse 2 - General Ulcer CM Notes Start: 09/20/23 10:20 Freq: Status: Active Protocol: Activity Type Activity Date Activity User E-sign Co-sign Detail Recorded Client Recorded Date Recorded By Document 09/20/23 10:33 MW Desktop 09/20/23 10:39 Document 09/27/23 10:03 Laptop 09/27/23 10:09 Document 10/02/23 14:41 Laptop 10/02/23 14:46 Document 10/09/23 14:48 Laptop 10/09/23 14:55 09/20/23 09/27/23 10/02/23 10:33 10:03 14:41 Wound Center Nurse 2 #7- L TORRES -Time 10:37 10:04 14:44 -Correct Patient Yes Yes Yes -Correct Side, Site, Position Yes Yes Yes -Correct Procedure Yes Yes Yes -Procedure Performed Yes Yes Yes -Type of Procedure Debridement Debridement Debridement -Clinical Debridement Subcutaneous Subcutaneous Subcutaneous -Tissue Removed Subcutaneous Subcutaneous Subcutaneous -Post Debridement (cm) - Length 1.8 1.9 1.8 -Post Debridement (cm) - Width 1.0 0.9 1.0 -Post Debridement (cm) - Depth 0.3 0.2 0.2 -Total Square (Post) (cm) 1.80 1.71 1.80 -Area of Debridement (cm) - Length 1.8 1.9 1.8 -Area of Debridement (cm) - Width 1.0 0.9 1.0 -Total Square (Area) (cm) 1.80 1.71 1.80 -Tunneling No No No -Undermining/Tunneling No No No -Circular Undermining No No No -Wound/Ulcer Outcome Not Healed Not Healed Not Healed -Ulcer Cleansing Rinsed/ Rinsed/ Rinsed/ Irrigated with Irrigated with Irrigated with Saline Saline Saline -Foul Odor after Cleansing No No No -Bioengineered Tissue Yes Yes Yes -Type of Bioengineered Tissue Epifix 18mm Epifix 18mm Epifix 18mm Disc Disc Disc -Expiration Date 05/20/28 05/20/28 05/20/28 -Product Lot Number [id number] -Percent Used 100 100 100 -Lot number of Saline Used [id number] -Bleeding Controlled with Pressure Pressure Pressure -Treatment Response Procedure Procedure Procedure Tolerated Well Tolerated Well Tolerated Well -Offloading No No No -Debridement - Subq, 1st 20sq cm No No No -Apply Skin Sub - 1st 25 sq cm - Legs 1 1 1 -Epifix 18mm Disc 3 3 3 Pain Scale: 0-10 Numeric Is Patient Pain Free? Yes Yes Yes 10/09/23 14:48 Wound Center Nurse 2 #7- L TORRES -Time 14:53 -Correct Patient Yes -Correct Side, Site, Position Yes -Correct Procedure Yes -Procedure Performed Yes -Type of Procedure Debridement -Clinical Debridement Subcutaneous -Tissue Removed Subcutaneous -Post Debridement (cm) - Length 1.7 -Post Debridement (cm) - Width 0.8 -Post Debridement (cm) - Depth 0.2 -Total Square (Post) (cm) 1.36 -Area of Debridement (cm) - Length 1.7 -Area of Debridement (cm) - Width 0.8 -Total Square (Area) (cm) 1.36 -Tunneling No -Undermining/Tunneling No -Circular Undermining No -Wound/Ulcer Outcome Not Healed -Ulcer Cleansing Rinsed/ Irrigated with Saline -Foul Odor after Cleansing No -Bioengineered Tissue Yes -Type of Bioengineered Tissue Epifix 18mm Disc -Expiration Date 05/20/28 -Product Lot Number [id number] -Percent Used 100 -Lot number of Saline Used [id number] -Bleeding Controlled with Pressure -Treatment Response Procedure Tolerated Well -Offloading No -Debridement - Subq, 1st 20sq cm No -Apply Skin Sub - 1st 25 sq cm - Legs 1 -Epifix 18mm Disc 3 Pain Scale: 0-10 Numeric Is Patient Pain Free? Yes - Nurse 3 - General Ulcer D/C NN Start: 09/20/23 10:20 Freq: Status: Active Protocol: Activity Type Activity Date Activity User E-sign Co-sign Detail Recorded Client Recorded Date Recorded By Document 09/20/23 10:46 [facility] [email or web address] 09/20/23 10:47 [facility] Document 09/27/23 10:23 KW Desktop 09/27/23 10:28 KW Document 10/02/23 14:50 Desktop 10/02/23 14:51 Document 10/09/23 14:55 Laptop 10/09/23 14:56 09/20/23 09/27/23 10/02/23 10:46 10:23 14:50 Wound Care Center Nurse 3 #7- L TORRES -Ulcer Cleansing Not Cleansed -Foul Odor after Cleansing -Primary Dressing Applied Mepilex Border Mepilex Border Mepilex Border -Other Dressing epifix -Primary Dressing Covered/Secured with Dry Gauze Dry Gauze -Mepilex Border 1 1 1 Left -Lotion applied to leg before No compression wrap -Compression Wrap Silvestre Wrap Silvestre Wrap Silvestre Wrap Treatment Response Procedure Tolerated Well Pain Scale: 0-10 Numeric Is Patient Pain Free? Yes No Yes - Visit Discharge Discharge Condition Stable Stable Stable Ambulatory Status Ambulatory Ambulatory Ambulatory Transportation Private Auto Private Auto Private Auto Medication Reconcilliation completed & No Yes provided to patient/care provider Clinical Summary of Care Provided Yes Yes 10/09/23 14:55 Wound Care Center Nurse 3 #7- L TORRES -Ulcer Cleansing Rinsed/ Irrigated with Saline -Foul Odor after Cleansing No -Primary Dressing Applied Mepilex Border -Other Dressing -Primary Dressing Covered/Secured with Dry Gauze -Mepilex Border 1 Left -Lotion applied to leg before compression wrap -Compression Wrap Silvestre Wrap Treatment Response Pain Scale: 0-10 Numeric Is Patient Pain Free? Yes WC - Visit Discharge Discharge Condition Stable Ambulatory Status Ambulatory Transportation Private Auto Medication Reconcilliation completed & Yes provided to patient/care provider Clinical Summary of Care Provided Yes Assessment/Plan Assessment/Plan (1) Chronic ulcer of left leg with fat layer exposed: CODE(S): L97.922 - Non-pressure chronic ulcer of unspecified part of left lower leg with fat layer exposed (2) Wound of right lower extremity: CODE(S): S81.801A - Unspecified open wound, right lower leg, initial encounter QUALIFIERS: Encounter type: initial encounter Qualified Code(s): S81.801A - Unspecified open wound, right lower leg, initial encounter (3) Edema of both lower extremities: CODE(S): R60.0 - Localized edema (4) Venous insufficiency (chronic) (peripheral): CODE(S): I87.2 - Venous insufficiency (chronic) (peripheral) (5) Diabetes mellitus type 2, uncontrolled, with complications: CODE(S): E11.8 - Type 2 diabetes mellitus with unspecified complications; E11.65 - Type 2 diabetes mellitus with hyperglycemia PLAN: Plan Patient was evaluated at the wound healing center today. Wound care to the left anterior leg ulcer - Epifix #9 applied today. 100% of the product was used. Hydrogel was placed on top of the epifix to help prevent it from drying out. It was covered with a wound veil and secured with steri strips. The wound was covered with Mepilex. She may change the outer dressing as needed, instructed not to remove the wound veil and not to get the wound wet. Compression - Double SILVESTRE wrap. Follow-up in 1 week.
[2023-10-16 14:39] VITALS: BP 178/79; PULSE 72; RESP 20; TEMP 35.4; BMI 49.7
--- NOTE | 2023-10-16 16:17 | PCM.WC.PN ---
History of Present Illness Date of Service: 10/16/23 Chief Complaint: Left anterior leg ulcer History of Wound: 57-year-old female who originally had a traumatic hematoma in 2012 to her left anterior leg and had an operative debridement and eventually had skin graft placement. She has been seen periodically at the wound center for chronic ulcers to her legs over the years. She has most recently been seeing Dr. Chang for her wound care. Her most significant issue at this time is her edema/lymphedema. When her edema becomes severe, she develops ulcers on her legs. She has a history of T2D, COPD, chronic venous insufficiency, cellulitis, chest pain, left ventricular aneurysm, HTN, Bipolar, ADHD, ABRAM, chronic pain syndrome, GERD. Wound culture from 03/08/23 positive for Staphylococcus aureus and she was started on Doxycycline. Wound culture obtained 04/26/23 which was positive for Staphylococcus aureus that was resistant to Doxycycline and Bactrim, she is allergic to PCN and cephalosporins and she is on several medications that interact with Linezolid, therefore insurance approval was obtained to start her on a new medication Nuzyra which she started 05/02/23. She completed it Nuzyra but experienced nausea and vomiting with it. Wound culture obtained 07/26/23 which was positive for MSSA. With all her allergies and the medications that she saw infectious disease for treatment of a one time infusion of Dalbavancin. Wound Care - She has been approved for Epifix. She currently denies fever, chills. Progress of Wound: Wound measurement stable, it is very dry today. Tolerating EpiFix well. Epifix #10 applied today. Objective Data Objective Data Vital Signs: Vital Signs Temp Pulse Resp BP Pulse Ox O2 Del Method 95.8 F L 72 20 H 178/79 H 95 Room Air 10/16/23 14:39 10/16/23 14:39 10/16/23 14:39 10/16/23 14:39 10/02/23 14:27 10/16/23 14:39 Oxygen Delivery Method Room Air Weight: 299 lb Body Mass Index (BMI) 49.7 Charges/Coding Procedures Integumentary 150xxx-152xx: 90043 Skin sub graft trnk/arm/leg Debridement Note Debridement Note Wound debrided: Anterior leg proximal ulcer Laterality: Left Type of Debridement: Excisional debridement Anesthesia Used: 5% Lidocaine Gel Depth: Down to and including healthy tissue and in the subcutaneous layer Percentage of wound debrided: 100 Instrument Used: 5mm curette Tissue Removed: Devitalized tissue and slough Severity: Limited To Skin Breakdown Amount of bleeding with debridement: Mild Bleeding Controlled with: Pressure and Compression and gauze Patient tolerated procedure: Patient tolerated procedure well Post-Debridement Measurements and Additional Note: Post-Debridement Measurements/Treatment - Nurse 1 - General Ulcer Assessment Start: 09/20/23 10:20 Freq: Status: Active Protocol: PERRY Activity Type Activity Date Activity User E-sign Co-sign Detail Recorded Client Recorded Date Recorded By Document 09/20/23 10:21 BM Desktop 09/20/23 10:27 BM Document 09/27/23 09:38 KW Desktop 09/27/23 09:50 KW Document 10/02/23 14:27 [facility] Desktop 10/02/23 14:35 [facility] Document 10/09/23 14:19 GM Desktop 10/09/23 14:29 Document 10/16/23 14:39 Desktop 10/16/23 14:46 09/20/23 09/27/23 10/02/23 10:21 09:38 14:27 - Today's Visit Information Type of service Follow-up Visit Follow-up Visit Follow-up Visit (Physician/WATER TAXI OPERATOR (Physician/WATER TAXI OPERATOR (Physician/WATER TAXI OPERATOR ) ) ) Arrival Mode Ambulatory Ambulatory Ambulatory Transfer Assistance None None Patient Identification Verified (Name & Yes Yes Yes ) Patient Requires Transmission-Based No No Precautions Height and Weight Body Mass Index (BMI) 49.7 49.7 49.7 BMI Classification Obese Obese Obese Vital Signs Temperature (97.8 F-99.1 F) 96.4 F L 97.6 F L 97 F L Temperature Source Temporal Temporal Temporal Pulse Rate (60-100) 73 59 L 69 Pulse Location Monitor Monitor Respiratory Rate (12-18) 18 20 H 18 Respiratory rate source Observation Observation Observation Pulse Oximetry 95 Oxygen Delivery Method Room Air Room Air Room Air Blood Pressure (90/60-120/80) 123/74 H 161/85 H 163/97 H Blood Pressure Mean (mm Hg) 90 110 119 Source Monitor Monitor Monitor Position Sitting Semi-Fowlers Sitting Blood Pressure Location Left Forearm Right Forearm Left Arm History Since Last Visit- (Skip if this is Patient's initial visit) Have you changed medications since your No No No last visit? Any new allergies or adverse reactions No No No Had a fall/change in ADL's that may No Yes No increase risk of falls Signs or symptoms of abuse and/or No No No neglect since last visit Have you been in the hospital since your No No No last visit? Has dressing in place as prescribed Yes Yes Yes Has compression in place as prescribed Yes Yes Yes Has offloadiing in place as prescribed N/A No N/A Experienced any changes in pain level or No No No management Left Footwear Regular Shoe Regular Shoe Regular Shoe Right Footwear Regular Shoe Regular Shoe Regular Shoe Pain Scale: 0-10 Numeric Is Patient Pain Free? Yes No Yes LT leg -Description Sharp -Intensity 8 -Alleviating Factors/Interventions Medication, Medicate when due 10/09/23 10/16/23 14:19 14:39 WC - Today's Visit Information Type of service Follow-up Visit Follow-up Visit (Physician/WATER TAXI OPERATOR (Physician/WATER TAXI OPERATOR ) ) Arrival Mode Ambulatory Ambulatory Transfer Assistance None None Patient Identification Verified (Name & Yes Yes ) Patient Requires Transmission-Based No No Precautions Height and Weight Body Mass Index (BMI) 49.7 49.7 BMI Classification Obese Obese Vital Signs Temperature (97.8 F-99.1 F) 96.7 F L 95.8 F L Temperature Source Temporal Temporal Pulse Rate (60-100) 75 72 Pulse Location Monitor Monitor Respiratory Rate (12-18) 20 H Respiratory rate source Observation Pulse Oximetry Oxygen Delivery Method Room Air Room Air Blood Pressure (90/60-120/80) 185/69 H 178/79 H Blood Pressure Mean (mm Hg) 107 112 Source Monitor Monitor Position Sitting Sitting Blood Pressure Location Left Forearm Left Forearm History Since Last Visit- (Skip if this is Patient's initial visit) Have you changed medications since your No No last visit? Any new allergies or adverse reactions No No Had a fall/change in ADL's that may No No increase risk of falls Signs or symptoms of abuse and/or No No neglect since last visit Have you been in the hospital since your No No last visit? Has dressing in place as prescribed Yes Yes Has compression in place as prescribed Yes No Has offloadiing in place as prescribed N/A N/A Experienced any changes in pain level or No management Left Footwear Regular Shoe Regular Shoe Right Footwear Regular Shoe Regular Shoe Pain Scale: 0-10 Numeric Is Patient Pain Free? Yes Yes LT leg -Description -Intensity -Alleviating Factors/Interventions WC - Nurse 1 - General Ulcer Measurement Start: 09/20/23 10:20 Freq: Status: Active Protocol: Activity Type Activity Date Activity User E-sign Co-sign Detail Recorded Client Recorded Date Recorded By Document 09/20/23 10:21 BMF Desktop 09/20/23 10:27 BM Document 09/27/23 09:38 KW Desktop 09/27/23 09:50 KW Document 10/02/23 14:27 BM Desktop 10/02/23 14:35 BM Document 10/09/23 14:19 GM Desktop 10/09/23 14:29 GM Document 10/16/23 14:39 GM Desktop 10/16/23 14:46 09/20/23 09/27/23 10/02/23 10:21 09:38 14:27 Wound Center Nurse 1 #7- L TORRES -Combined with other wound No No -Current Size (cm) - Length 1.5 2 1.6 -Current Size (cm) - Width 1.1 1.5 1.2 -Current Size (cm) - Depth 0.2 0.2 0.2 -Total Square Cm 1.65 3.0 1.92 -Photo Taken No No -Epithelialization Small 1-33% -Tunneling No No -Undermining/Tunneling No No -Circular Undermining No No -Exudate Amt Medium Small Medium -Exudate Type Serosanguineous Serosanguineous Serosanguineous -Wound Margin Distinct, Distinct, Distinct, Outline Outline Outline Attached Attached Attached -Granulation Amt Medium (34-66%) Medium (34-66%) Medium (34-66%) -Granulation Quality Red [place] Red -Slough/Fibrin Yes Yes -Necrosis Amt Medium (34-66%) Small (1-33%) Medium (34-66%) -Necrotic Tissue Type Adherent Slough Adherent Slough Adherent Slough -Structure Exposed -Texture (Verónica-wound Skin Appearance) Assessed, Assessed Assessed Scarring -Moisture (Verónica-wound Skin Appearance) Assessed,Dry/ Assessed Assessed,Dry/ Scaly Scaly -Color (Verónica-wound Skin Appearance) Assessed, Assessed Assessed, Hemosiderin Hemosiderin Staining Staining -Temperature (Verónica-wound Skin No Abnormality No Abnormality No Abnormality Appearance) (Pt Warm) (Pt Warm) (Pt Warm) -Tenderness on Palpation (Verónica-wound No No Skin Appearance) -Ulcer Cleansing Soap and Water Soap and Water Soap and Water -Foul Odor after Cleansing No No No -Anesthetic Used 5% Lidocaine 5% Lidocaine 5% Lidocaine Gel Gel Gel Lower Limb Edema Present Yes Yes Right Calf (cm) Right Ankle (cm) Left Calf (cm) 53.4 56 51.5 Left Ankle (cm) 22.8 24 22.6 10/09/23 10/16/23 14:19 14:39 Wound Center Nurse 1 #7- L TORRES -Combined with other wound No -Current Size (cm) - Length 1.5 -Current Size (cm) - Width 1.2 -Current Size (cm) - Depth 0.2 -Total Square Cm 1.80 -Photo Taken No -Epithelialization Small 1-33% Medium 34-66% -Tunneling No No -Undermining/Tunneling No No -Circular Undermining No -Exudate Amt Medium Medium -Exudate Type Yellow/Green Yellow/Green -Wound Margin Distinct, Distinct, Outline Outline Attached Attached -Granulation Amt Medium (34-66%) Medium (34-66%) -Granulation Quality Pale Red -Slough/Fibrin -Necrosis Amt Medium (34-66%) Small (1-33%) -Necrotic Tissue Type -Structure Exposed N/A -Texture (Verónica-wound Skin Appearance) Assessed, Assessed, Scarring Scarring -Moisture (Verónica-wound Skin Appearance) Assessed Assessed -Color (Verónica-wound Skin Appearance) Assessed Assessed -Temperature (Verónica-wound Skin No Abnormality Appearance) (Pt Warm) -Tenderness on Palpation (Verónica-wound No Skin Appearance) -Ulcer Cleansing Soap and Water Soap and Water -Foul Odor after Cleansing No -Anesthetic Used 5% Lidocaine 5% Lidocaine Gel Gel Lower Limb Edema Present No Right Calf (cm) 55.0 Right Ankle (cm) 23.5 Left Calf (cm) 55.7 Left Ankle (cm) 24.5 WC - Nurse 2 - General Ulcer CM Notes Start: 09/20/23 10:20 Freq: Status: Active Protocol: Activity Type Activity Date Activity User E-sign Co-sign Detail Recorded Client Recorded Date Recorded By Document 09/20/23 10:33 Desktop 09/20/23 10:39 Document 09/27/23 10:03 Laptop 09/27/23 10:09 Document 10/02/23 14:41 Laptop 10/02/23 14:46 Document 10/09/23 14:48 Laptop 10/09/23 14:55 Document 10/16/23 15:15 Laptop 10/16/23 15:16 09/20/23 09/27/23 10/02/23 10:33 10:03 14:41 Wound Center Nurse 2 #7- L TORRES -Time 10:37 10:04 14:44 -Correct Patient Yes Yes Yes -Correct Side, Site, Position Yes Yes Yes -Correct Procedure Yes Yes Yes -Procedure Performed Yes Yes Yes -Type of Procedure Debridement Debridement Debridement -Clinical Debridement Subcutaneous Subcutaneous Subcutaneous -Tissue Removed Subcutaneous Subcutaneous Subcutaneous -Post Debridement (cm) - Length 1.8 1.9 1.8 -Post Debridement (cm) - Width 1.0 0.9 1.0 -Post Debridement (cm) - Depth 0.3 0.2 0.2 -Total Square (Post) (cm) 1.80 1.71 1.80 -Area of Debridement (cm) - Length 1.8 1.9 1.8 -Area of Debridement (cm) - Width 1.0 0.9 1.0 -Total Square (Area) (cm) 1.80 1.71 1.80 -Tunneling No No No -Undermining/Tunneling No No No -Circular Undermining No No No -Wound/Ulcer Outcome Not Healed Not Healed Not Healed -Ulcer Cleansing Rinsed/ Rinsed/ Rinsed/ Irrigated with Irrigated with Irrigated with Saline Saline Saline -Foul Odor after Cleansing No No No -Bioengineered Tissue Yes Yes Yes -Type of Bioengineered Tissue Epifix 18mm Epifix 18mm Epifix 18mm Disc Disc Disc -Expiration Date 05/20/28 05/20/28 05/20/28 -Product Lot Number [id number] -Percent Used 100 100 100 -Lot number of Saline Used [id number] -Bleeding Controlled with Pressure Pressure Pressure -Treatment Response Procedure Procedure Procedure Tolerated Well Tolerated Well Tolerated Well -Offloading No No No -Debridement - Subq, 1st 20sq cm No No No -Apply Skin Sub - 1st 25 sq cm - Legs 1 1 1 -Epifix 18mm Disc 3 3 3 Pain Scale: 0-10 Numeric Is Patient Pain Free? Yes Yes Yes 10/09/23 10/16/23 14:48 15:15 Wound Center Nurse 2 #7- L TORRES -Time 14:53 15:15 -Correct Patient Yes Yes -Correct Side, Site, Position Yes Yes -Correct Procedure Yes Yes -Procedure Performed Yes Yes -Type of Procedure Debridement Debridement -Clinical Debridement Subcutaneous Subcutaneous -Tissue Removed Subcutaneous Subcutaneous -Post Debridement (cm) - Length 1.7 1.7 -Post Debridement (cm) - Width 0.8 1.3 -Post Debridement (cm) - Depth 0.2 0.2 -Total Square (Post) (cm) 1.36 2.21 -Area of Debridement (cm) - Length 1.7 1.7 -Area of Debridement (cm) - Width 0.8 1.3 -Total Square (Area) (cm) 1.36 2.21 -Tunneling No No -Undermining/Tunneling No No -Circular Undermining No No -Wound/Ulcer Outcome Not Healed Not Healed -Ulcer Cleansing Rinsed/ Rinsed/ Irrigated with Irrigated with Saline Saline -Foul Odor after Cleansing No No -Bioengineered Tissue Yes Yes -Type of Bioengineered Tissue Epifix 18mm Epifix 18mm Disc Disc -Expiration Date 05/20/28 05/20/28 -Product Lot Number [id number] -Percent Used 100 100 -Lot number of Saline Used [id number] -Bleeding Controlled with Pressure Pressure -Treatment Response Procedure Procedure Tolerated Well Tolerated Well -Offloading No No -Debridement - Subq, 1st 20sq cm No No -Apply Skin Sub - 1st 25 sq cm - Legs 1 1 -Epifix 18mm Disc 3 3 Pain Scale: 0-10 Numeric Is Patient Pain Free? Yes Yes WC - Nurse 3 - General Ulcer D/C NN Start: 09/20/23 10:20 Freq: Status: Active Protocol: Activity Type Activity Date Activity User E-sign Co-sign Detail Recorded Client Recorded Date Recorded By Document 09/20/23 10:46 BMF Desktop 09/20/23 10:47 BMF Document 09/27/23 10:23 KW Desktop 09/27/23 10:28 KW Document 10/02/23 14:50 GM Desktop 10/02/23 14:51 GM Document 10/09/23 14:55 Laptop 10/09/23 14:56 Document 10/16/23 15:18 Laptop 10/16/23 15:18 09/20/23 09/27/23 10/02/23 10:46 10:23 14:50 Wound Care Center Nurse 3 #7- L TORRES -Ulcer Cleansing Not Cleansed -Foul Odor after Cleansing -Primary Dressing Applied Mepilex Border Mepilex Border Mepilex Border -Other Dressing epifix -Primary Dressing Covered/Secured with Dry Gauze Dry Gauze -Mepilex Border 1 1 1 Left -Lotion applied to leg before No compression wrap -Compression Wrap Silvestre Wrap Silvestre Wrap Silvestre Wrap Treatment Response Procedure Tolerated Well Pain Scale: 0-10 Numeric Is Patient Pain Free? Yes No Yes WC - Visit Discharge Discharge Condition Stable Stable Stable Ambulatory Status Ambulatory Ambulatory Ambulatory Transportation Private Auto Private Auto Private Auto Medication Reconcilliation completed & No Yes provided to patient/care provider Clinical Summary of Care Provided Yes Yes 10/09/23 10/16/23 14:55 15:18 Wound Care Center Nurse 3 #7- L TORRES -Ulcer Cleansing Rinsed/ Rinsed/ Irrigated with Irrigated with Saline Saline -Foul Odor after Cleansing No No -Primary Dressing Applied Mepilex Border Mepilex Border -Other Dressing -Primary Dressing Covered/Secured with Dry Gauze Dry Gauze -Mepilex Border 1 1 Left -Lotion applied to leg before compression wrap -Compression Wrap Silvestre Wrap Silvestre Wrap Treatment Response Pain Scale: 0-10 Numeric Is Patient Pain Free? Yes Yes WC - Visit Discharge Discharge Condition Stable Stable Ambulatory Status Ambulatory Ambulatory Transportation Private Auto Private Auto Medication Reconcilliation completed & Yes Yes provided to patient/care provider Clinical Summary of Care Provided Yes Yes Assessment/Plan Assessment/Plan (1) Chronic ulcer of left leg with fat layer exposed: CODE(S): L97.922 - Non-pressure chronic ulcer of unspecified part of left lower leg with fat layer exposed (2) Wound of right lower extremity: CODE(S): S81.801A - Unspecified open wound, right lower leg, initial encounter QUALIFIERS: Encounter type: initial encounter Qualified Code(s): S81.801A - Unspecified open wound, right lower leg, initial encounter (3) Edema of both lower extremities: CODE(S): R60.0 - Localized edema (4) Venous insufficiency (chronic) (peripheral): CODE(S): I87.2 - Venous insufficiency (chronic) (peripheral) (5) Diabetes mellitus type 2, uncontrolled, with complications: CODE(S): E11.8 - Type 2 diabetes mellitus with unspecified complications; E11.65 - Type 2 diabetes mellitus with hyperglycemia PLAN: Plan Patient was evaluated at the wound healing center today. Wound care to the left anterior leg ulcer - Epifix #10 applied today. 100% of the product was used. Hydrogel was placed on top of the epifix to help prevent it from drying out. It was covered with a wound veil and secured with steri strips. The wound was covered with Mepilex. She may change the outer dressing as needed, instructed not to remove the wound veil and not to get the wound wet. Compression - Double SILVESTRE wrap. Follow-up in 1 week.
== END 2023-10-19 23:59 | disposition home or self-care (01) ==
LOC: WC 14:45
PROVIDERS: PCP Internal Medicine; Referring Provider Internal Medicine; Visit Provider Nurse Practitioner Family
DX: L97.922 Non-pressure chronic ulcer of unspecified part of left lower leg with fat layer exposed (principal); J44.9 Chronic obstructive pulmonary disease, unspecified; E11.65 Type 2 diabetes mellitus with hyperglycemia; I89.0 Lymphedema, not elsewhere classified; I10 Essential (primary) hypertension; E66.9 Obesity, unspecified; R60.0 Localized edema; I87.2 Venous insufficiency (chronic) (peripheral); S81.801D Unspecified open wound, right lower leg, subsequent encounter; G47.33 Obstructive sleep apnea (adult) (pediatric); F90.9 Attention-deficit hyperactivity disorder, unspecified type
CPT/HCPCS: 15271; Q4186

== ENCOUNTER 2023-11-06 14:15 | Outpatient (RCR) | payer MEDICAID, SELFPAY ==
[2023-10-20 00:46] VITALS: BP 178/79; PULSE 72; RESP 20; TEMP 35.4; O2SAT 95; BMI 49.7
[2023-10-30 14:10] VITALS: BP 156/77; PULSE 85; RESP 20; TEMP 36.3; BMI 49.7
--- NOTE | 2023-10-30 16:49 | PCM.WC.PN ---
History of Present Illness Date of Service: 10/30/23 Chief Complaint: Left anterior leg ulcer History of Wound: 57-year-old female who originally had a traumatic hematoma in 2011 to her left anterior leg and had an operative debridement and eventually had skin graft placement. She has been seen periodically at the wound center for chronic ulcers to her legs over the years. She has most recently been seeing Dr. Chang for her wound care. Her most significant issue at this time is her edema/lymphedema. When her edema becomes severe, she develops ulcers on her legs. She has a history of T2D, COPD, chronic venous insufficiency, cellulitis, chest pain, left ventricular aneurysm, HTN, Bipolar, ADHD, ABRAM, chronic pain syndrome, GERD. Wound culture from 03/08/23 positive for Staphylococcus aureus and she was started on Doxycycline. Wound culture obtained 04/26/23 which was positive for Staphylococcus aureus that was resistant to Doxycycline and Bactrim, she is allergic to PCN and cephalosporins and she is on several medications that interact with Linezolid, therefore insurance approval was obtained to start her on a new medication Nuzyra which she started 05/02/23. She completed it Nuzyra but experienced nausea and vomiting with it. Wound culture obtained 07/26/23 which was positive for MSSA. With all her allergies and the medications that she saw infectious disease for treatment of a one time infusion of Dalbavancin. Wound Care - She has been approved for Epifix and has had 10 applications. Collagen hydrogel with adaptic and Mepilex. She currently denies fever, chills. Progress of Wound: Ulcer is stable. Ulcer bed is pink but appears dry. She has completed 10 applications of Epifix. Objective Data Objective Data Vital Signs: Vital Signs Temp Pulse Resp BP Pulse Ox 97.4 F L 85 20 H 156/77 H 95 10/30/23 14:10 10/30/23 14:10 10/30/23 14:10 10/30/23 14:10 10/20/23 00:46 Weight: 299 lb Body Mass Index (BMI) 49.7 Charges/Coding Procedures Integumentary 111xxx-113xx: 37998 Joie subq tissue 20 sq cm/< Debridement Note Debridement Note Wound debrided: Anterior leg proximal ulcer Laterality: Left Type of Debridement: Excisional debridement Anesthesia Used: 5% Lidocaine Gel Depth: Down to and including healthy tissue and in the subcutaneous layer Percentage of wound debrided: 100 Instrument Used: 5mm curette Tissue Removed: Devitalized tissue and slough Severity: Limited To Skin Breakdown Amount of bleeding with debridement: Mild Bleeding Controlled with: Pressure and Compression and gauze Patient tolerated procedure: Patient tolerated procedure well Post-Debridement Measurements and Additional Note: Post-Debridement Measurements/Treatment WC - Nurse 1 - General Ulcer Assessment Start: 10/30/23 14:10 Freq: Status: Active Protocol: PERRY Activity Type Activity Date Activity User E-sign Co-sign Detail Recorded Client Recorded Date Recorded By Document 10/30/23 14:10 DL Desktop 10/30/23 14:12 DL 10/30/23 14:10 WC - Today's Visit Information Type of service Follow-up Visit (Physician/SAFETY DEPOSIT CLERK ) Arrival Mode Ambulatory Transfer Assistance None Patient Identification Verified (Name & Yes ) Patient Requires Transmission-Based No Precautions Height and Weight Body Mass Index (BMI) 49.7 BMI Classification Obese Vital Signs Temperature (97.8 F-99.1 F) 97.4 F L Temperature Source Temporal Pulse Rate (60-100) 85 Pulse Location Monitor Respiratory Rate (12-18) 20 H Respiratory rate source Observation Blood Pressure (90/60-120/80) 156/77 H Blood Pressure Mean (mm Hg) 103 Source Monitor History Since Last Visit- (Skip if this is Patient's initial visit) Have you changed medications since your No last visit? Any new allergies or adverse reactions No Had a fall/change in ADL's that may No increase risk of falls Signs or symptoms of abuse and/or No neglect since last visit Have you been in the hospital since your No last visit? Has dressing in place as prescribed Yes Has compression in place as prescribed Yes Has offloadiing in place as prescribed N/A Experienced any changes in pain level or No management Pain Scale: 0-10 Numeric Is Patient Pain Free? Yes NILO - Nurse 1 - General Ulcer Measurement Start: 10/30/23 14:10 Freq: Status: Active Protocol: Activity Type Activity Date Activity User E-sign Co-sign Detail Recorded Client Recorded Date Recorded By Document 10/30/23 14:10 DL ODECktop 10/30/23 14:12 DL 10/30/23 14:10 Wound Center Nurse 1 #7- L TORRES -Current Size (cm) - Length 1.7 -Current Size (cm) - Width 1.2 -Current Size (cm) - Depth 0.1 -Total Square Cm 2.04 -Exudate Amt Small -Exudate Type Serosanguineous -Wound Margin Distinct, Outline Attached -Granulation Amt Medium (34-66%) -Granulation Quality Red -Necrosis Amt Medium (34-66%) -Necrotic Tissue Type Adherent Slough -Structure Exposed N/A -Texture (Verónica-wound Skin Appearance) Scarring -Moisture (Verónica-wound Skin Appearance) Dry/Scaly -Color (Verónica-wound Skin Appearance) Hemosiderin Staining -Temperature (Verónica-wound Skin No Abnormality Appearance) (Pt Warm) -Tenderness on Palpation (Verónica-wound No Skin Appearance) -Ulcer Cleansing Soap and Water -Foul Odor after Cleansing No -Anesthetic Used 5% Lidocaine Gel Left Calf (cm) 54.1 Left Ankle (cm) 23 WC - Nurse 2 - General Ulcer CM Notes Start: 10/30/23 14:10 Freq: Status: Active Protocol: Activity Type Activity Date Activity User E-sign Co-sign Detail Recorded Client Recorded Date Recorded By Document 10/30/23 14:24 Laptop 10/30/23 14:28 10/30/23 14:24 Wound Center Nurse 2 #7- L TORRES -Time 14:24 -Correct Patient Yes -Correct Side, Site, Position Yes -Correct Procedure Yes -Procedure Performed Yes -Type of Procedure Debridement -Clinical Debridement Subcutaneous -Tissue Removed Subcutaneous -Post Debridement (cm) - Length 1.7 -Post Debridement (cm) - Width 1.0 -Post Debridement (cm) - Depth 0.1 -Total Square (Post) (cm) 1.70 -Area of Debridement (cm) - Length 1.7 -Area of Debridement (cm) - Width 1.0 -Total Square (Area) (cm) 1.70 -Tunneling No -Undermining/Tunneling No -Circular Undermining No -Wound/Ulcer Outcome Not Healed -Ulcer Cleansing Rinsed/ Irrigated with Saline -Foul Odor after Cleansing No -Bioengineered Tissue No -Bleeding Controlled with Pressure -Treatment Response Procedure Tolerated Well -Offloading No -Debridement - Subq, 1st 20sq cm Yes Pain Scale: 0-10 Numeric Is Patient Pain Free? Yes WC - Nurse 3 - General Ulcer D/C NN Start: 10/30/23 14:10 Freq: Status: Active Protocol: Activity Type Activity Date Activity User E-sign Co-sign Detail Recorded Client Recorded Date Recorded By Document 10/30/23 14:40 DL Desktop 10/30/23 14:42 DL 10/30/23 14:40 Wound Care Center Nurse 3 #7- L TORRES -Ulcer Cleansing Rinsed/ Irrigated with Saline -Foul Odor after Cleansing No -Primary Dressing Applied C Hydrogel ($), Mepilex Border, NonAdherent Contact Layer -Other Covering MARYCARMEN -Mepilex Border 1 Treatment Response Procedure Tolerated Well Pain Scale: 0-10 Numeric Is Patient Pain Free? Yes WC - Visit Discharge Discharge Condition Stable Ambulatory Status Ambulatory Transportation Private Auto Assessment/Plan Assessment/Plan (1) Chronic ulcer of left leg with fat layer exposed: CODE(S): L97.922 - Non-pressure chronic ulcer of unspecified part of left lower leg with fat layer exposed (2) Wound of right lower extremity: CODE(S): S81.801A - Unspecified open wound, right lower leg, initial encounter QUALIFIERS: Encounter type: initial encounter Qualified Code(s): S81.801A - Unspecified open wound, right lower leg, initial encounter (3) Edema of both lower extremities: CODE(S): R60.0 - Localized edema (4) Venous insufficiency (chronic) (peripheral): CODE(S): I87.2 - Venous insufficiency (chronic) (peripheral) (5) Diabetes mellitus type 2, uncontrolled, with complications: CODE(S): E11.8 - Type 2 diabetes mellitus with unspecified complications; E11.65 - Type 2 diabetes mellitus with hyperglycemia PLAN: Plan Patient was evaluated at the wound healing center today. Completed 10 applications of Epifix. Wound care to the left anterior leg ulcer - Collagen hydrogel covered with adaptic and topped with Mepilex dressing daily after washing with soap and water. Compression - Double MARYCARMEN wrap. Follow-up in 1 week.
[2023-11-06 14:21] VITALS: BP 138/73; PULSE 82; RESP 18; TEMP 35.5; BMI 49.7
--- NOTE | 2023-11-06 16:50 | PCM.WC.PN ---
History of Present Illness Date of Service: 11/06/23 Chief Complaint: Left anterior leg ulcer History of Wound: 57-year-old female who originally had a traumatic hematoma in 2011 to her left anterior leg and had an operative debridement and eventually had skin graft placement. She has been seen periodically at the wound center for chronic ulcers to her legs over the years. She has most recently been seeing Dr. Chang for her wound care. Her most significant issue at this time is her edema/lymphedema. When her edema becomes severe, she develops ulcers on her legs. She has a history of T2D, COPD, chronic venous insufficiency, cellulitis, chest pain, left ventricular aneurysm, HTN, Bipolar, ADHD, ABRAM, chronic pain syndrome, GERD. Wound culture from 03/08/23 positive for Staphylococcus aureus and she was started on Doxycycline. Wound culture obtained 04/26/23 which was positive for Staphylococcus aureus that was resistant to Doxycycline and Bactrim, she is allergic to PCN and cephalosporins and she is on several medications that interact with Linezolid, therefore insurance approval was obtained to start her on a new medication Nuzyra which she started 05/02/23. She completed it Nuzyra but experienced nausea and vomiting with it. Wound culture obtained 07/26/23 which was positive for MSSA. With all her allergies and the medications that she saw infectious disease for treatment of a one time infusion of Dalbavancin. Wound Care - She has been approved for Epifix and has had 10 applications. Collagen hydrogel with adaptic and Mepilex. She currently denies fever, chills. Progress of Wound: Ulcer is much improved. Wound bed is pink. Objective Data Objective Data Vital Signs: Vital Signs Temp Pulse Resp BP Pulse Ox O2 Del Method 95.9 F L 82 18 138/73 H 95 Room Air 11/06/23 14:21 11/06/23 14:21 11/06/23 14:21 11/06/23 14:21 10/20/23 00:46 11/06/23 14:21 Oxygen Delivery Method Room Air Weight: 299 lb Body Mass Index (BMI) 49.7 Charges/Coding Procedures Integumentary 111xxx-113xx: 37838 Joie subq tissue 20 sq cm/< Debridement Note Debridement Note Wound debrided: Anterior leg proximal ulcer Laterality: Left Wound Grade/Stage: Stage III Type of Debridement: Excisional debridement Anesthesia Used: 5% Lidocaine Gel Depth: Down to and including healthy tissue and in the subcutaneous layer Percentage of wound debrided: 100 Instrument Used: 5mm curette Tissue Removed: Devitalized tissue and slough Severity: Limited To Skin Breakdown Amount of bleeding with debridement: Mild Bleeding Controlled with: Pressure and Compression and gauze Patient tolerated procedure: Patient tolerated procedure well Post-Debridement Measurements and Additional Note: Post-Debridement Measurements/Treatment WC - Nurse 1 - General Ulcer Assessment Start: 10/30/23 14:10 Freq: Status: Active Protocol: PERRY Activity Type Activity Date Activity User E-sign Co-sign Detail Recorded Client Recorded Date Recorded By Document 10/30/23 14:10 DL Desktop 10/30/23 14:12 DL Document 11/06/23 14:21 KW Desktop 11/06/23 14:24 KW 10/30/23 11/06/23 14:10 14:21 WC - Today's Visit Information Type of service Follow-up Visit Follow-up Visit (Physician/SODA FOUNTAIN CLERK (Physician/SODA FOUNTAIN CLERK ) ) Arrival Mode Ambulatory Ambulatory Transfer Assistance None Patient Identification Verified (Name & Yes Yes ) Patient Requires Transmission-Based No Precautions Height and Weight Body Mass Index (BMI) 49.7 49.7 BMI Classification Obese Obese Vital Signs Temperature (97.8 F-99.1 F) 97.4 F L 95.9 F L Temperature Source Temporal Temporal Pulse Rate (60-100) 85 82 Pulse Location Monitor Monitor Respiratory Rate (12-18) 20 H 18 Respiratory rate source Observation Observation Oxygen Delivery Method Room Air Blood Pressure (90/60-120/80) 156/77 H 138/73 H Blood Pressure Mean (mm Hg) 103 94 Source Monitor Monitor Position Semi-Fowlers Blood Pressure Location Left Arm History Since Last Visit- (Skip if this is Patient's initial visit) Have you changed medications since your No No last visit? Any new allergies or adverse reactions No No Had a fall/change in ADL's that may No No increase risk of falls Signs or symptoms of abuse and/or No No neglect since last visit Have you been in the hospital since your No No last visit? Has dressing in place as prescribed Yes Yes Has compression in place as prescribed Yes Yes Has offloadiing in place as prescribed N/A No Experienced any changes in pain level or No No management Left Footwear Regular Shoe Right Footwear Regular Shoe Pain Scale: 0-10 Numeric Is Patient Pain Free? Yes Yes WC - Nurse 1 - General Ulcer Measurement Start: 10/30/23 14:10 Freq: Status: Active Protocol: Activity Type Activity Date Activity User E-sign Co-sign Detail Recorded Client Recorded Date Recorded By Document 10/30/23 14:10 DL Desktop 10/30/23 14:12 DL Document 11/06/23 14:21 KW Desktop 11/06/23 14:24 KW 10/30/23 11/06/23 14:10 14:21 Wound Center Nurse 1 #7- L TORRES -Current Size (cm) - Length 1.7 1.4 -Current Size (cm) - Width 1.2 0.8 -Current Size (cm) - Depth 0.1 0.1 -Total Square Cm 2.04 1.12 -Exudate Amt Small Small -Exudate Type Serosanguineous Serosanguineous -Wound Margin Distinct, Distinct, Outline Outline Attached Attached -Granulation Amt Medium (34-66%) Medium (34-66%) -Granulation Quality Red Pale -Necrosis Amt Medium (34-66%) Medium (34-66%) -Necrotic Tissue Type Adherent Slough Adherent Slough -Structure Exposed N/A -Texture (Verónica-wound Skin Appearance) Scarring Assessed -Moisture (Verónica-wound Skin Appearance) Dry/Scaly Assessed -Color (Verónica-wound Skin Appearance) Hemosiderin Assessed Staining -Temperature (Verónica-wound Skin No Abnormality No Abnormality Appearance) (Pt Warm) (Pt Warm) -Tenderness on Palpation (Verónica-wound No Skin Appearance) -Ulcer Cleansing Soap and Water Rinsed/ Irrigated with Saline -Foul Odor after Cleansing No No -Anesthetic Used 5% Lidocaine 5% Lidocaine Gel Gel Left Calf (cm) 54.1 Left Ankle (cm) 23 WC - Nurse 2 - General Ulcer CM Notes Start: 10/30/23 14:10 Freq: Status: Active Protocol: Activity Type Activity Date Activity User E-sign Co-sign Detail Recorded Client Recorded Date Recorded By Document 10/30/23 14:24 Laptop 10/30/23 14:28 Document 11/06/23 14:55 Laptop 11/06/23 14:57 12/11/23 12/18/23 14:24 14:55 Wound Center Nurse 2 #7- L TORRES -Time 14:24 14:55 -Correct Patient Yes Yes -Correct Side, Site, Position Yes Yes -Correct Procedure Yes Yes -Procedure Performed Yes Yes -Type of Procedure Debridement Debridement -Clinical Debridement Subcutaneous Subcutaneous -Tissue Removed Subcutaneous Subcutaneous -Post Debridement (cm) - Length 1.7 1.6 -Post Debridement (cm) - Width 1.0 1.0 -Post Debridement (cm) - Depth 0.1 0.1 -Total Square (Post) (cm) 1.70 1.60 -Area of Debridement (cm) - Length 1.7 1.6 -Area of Debridement (cm) - Width 1.0 1.0 -Total Square (Area) (cm) 1.70 1.60 -Tunneling No No -Undermining/Tunneling No No -Circular Undermining No No -Wound/Ulcer Outcome Not Healed Not Healed -Ulcer Cleansing Rinsed/ Rinsed/ Irrigated with Irrigated with Saline Saline -Foul Odor after Cleansing No No -Bioengineered Tissue No No -Bleeding Controlled with Pressure Pressure -Treatment Response Procedure Procedure Tolerated Well Tolerated Well -Offloading No No -Debridement - Subq, 1st 20sq cm Yes Yes Pain Scale: 0-10 Numeric Is Patient Pain Free? Yes Yes - Nurse 3 - General Ulcer D/C NN Start: 10/30/23 14:10 Freq: Status: Active Protocol: Activity Type Activity Date Activity User E-sign Co-sign Detail Recorded Client Recorded Date Recorded By Document 10/30/23 14:40 DL Desktop 10/30/23 14:42 DL Document 11/06/23 15:02 KW Desktop 11/06/23 15:03 10/30/23 11/06/23 14:40 15:02 Wound Care Center Nurse 3 #7- L TORRES -Ulcer Cleansing Rinsed/ Irrigated with Saline -Foul Odor after Cleansing No -Primary Dressing Applied C Hydrogel ($), C Hydrogel ($), Mepilex Border, Mepilex Border, NonAdherent NonAdherent Contact Layer Contact Layer -Other Covering MARYCARMEN -Mepilex Border 1 1 Treatment Response Procedure Tolerated Well Pain Scale: 0-10 Numeric Is Patient Pain Free? Yes Yes WC - Visit Discharge Discharge Condition Stable Stable Ambulatory Status Ambulatory Ambulatory Transportation Private Auto Private Auto Medication Reconcilliation completed & No provided to patient/care provider Clinical Summary of Care Provided Yes Assessment/Plan Assessment/Plan (1) Chronic ulcer of left leg with fat layer exposed: CODE(S): L97.922 - Non-pressure chronic ulcer of unspecified part of left lower leg with fat layer exposed (2) Wound of right lower extremity: CODE(S): S81.801A - Unspecified open wound, right lower leg, initial encounter QUALIFIERS: Encounter type: initial encounter Qualified Code(s): S81.801A - Unspecified open wound, right lower leg, initial encounter (3) Edema of both lower extremities: CODE(S): R60.0 - Localized edema (4) Venous insufficiency (chronic) (peripheral): CODE(S): I87.2 - Venous insufficiency (chronic) (peripheral) (5) Diabetes mellitus type 2, uncontrolled, with complications: CODE(S): E11.8 - Type 2 diabetes mellitus with unspecified complications; E11.65 - Type 2 diabetes mellitus with hyperglycemia PLAN: Plan Patient was evaluated at the wound healing center today. Completed 10 applications of Epifix. Wound care to the left anterior leg ulcer - Collagen hydrogel covered with adaptic and topped with Mepilex or ABD dressing daily after washing with soap and water. Compression - Double MARYCARMEN wrap. Follow-up in 3 weeks due to the holidays.
== END 2023-11-19 23:59 | disposition home or self-care (01) ==
LOC: WC 14:15
PROVIDERS: PCP Internal Medicine; Referring Provider Internal Medicine; Visit Provider Nurse Practitioner Family
DX: L97.922 Non-pressure chronic ulcer of unspecified part of left lower leg with fat layer exposed (principal); J44.9 Chronic obstructive pulmonary disease, unspecified; E11.65 Type 2 diabetes mellitus with hyperglycemia; I89.0 Lymphedema, not elsewhere classified; I10 Essential (primary) hypertension; S81.801A Unspecified open wound, right lower leg, initial encounter; R60.0 Localized edema
CPT/HCPCS: 11042

== ENCOUNTER 2023-11-27 09:58 | Outpatient (RCR) | payer MEDICAID, SELFPAY ==
[2023-11-20 00:45] VITALS: BP 138/73; PULSE 82; RESP 18; TEMP 35.5; O2SAT 95; BMI 49.7
[2023-11-27 10:07] VITALS: BP 150/72; PULSE 64; RESP 18; TEMP 35.9; BMI 49.7
--- NOTE | 2023-11-27 12:01 | PN.PCM_ITS ---
History of Present Illness Date of Service: 11/27/23 Chief Complaint: Left anterior leg ulcer History of Wound: 57-year-old female who originally had a traumatic hematoma in 2012 to her left anterior leg and had an operative debridement and eventually had skin graft placement. She has been seen periodically at the wound center for chronic ulcers to her legs over the years. She has most recently been seeing Dr. Chang for her wound care. Her most significant issue at this time is her edema/lymphedema. When her edema becomes severe, she develops ulcers on her legs. She has a history of T2D, COPD, chronic venous insufficiency, cellulitis, chest pain, left ventricular aneurysm, HTN, Bipolar, ADHD, ABRAM, chronic pain syndrome, GERD. Wound culture from 03/08/23 positive for Staphylococcus aureus and she was started on Doxycycline. Wound culture obtained 04/26/23 which was positive for Staphylococcus aureus that was resistant to Doxycycline and Bactrim, she is allergic to PCN and cephalosporins and she is on several medications that interact with Linezolid, therefore insurance approval was obtained to start her on a new medication Nuzyra which she started 05/02/23. She completed it Nuzyra but experienced nausea and vomiting with it. Wound culture obtained 07/26/23 which was positive for MSSA. With all her allergies and the medications that she saw infectious disease for treatment of a one time infusion of Dalbavancin. Wound Care - She has been approved for Epifix and has had 10 applications. Collagen hydrogel with adaptic and Mepilex. She currently denies fever, chills. Progress of Wound: Ulcer is healed today! Her edema is controlled with MARYCARMEN wraps. Objective Data Objective Data Vital Signs: Vital Signs Temp Pulse Resp BP Pulse Ox O2 Del Method 96.6 F L 64 18 150/72 H 95 Room Air 11/27/23 10:07 11/27/23 10:07 11/27/23 10:07 11/27/23 10:07 11/20/23 00:45 11/27/23 10:07 Oxygen Delivery Method Room Air Weight: 299 lb Body Mass Index (BMI) 49.7 Charges/Coding Visit Charges Office Visits / Consults: 68285 OV L3 Est 20min Physical Exam Const alert and oriented x3 HEENT normocephalic Head and Scalp: atraumatic Eyes General Eye: normal appearance of both eyes Lymph Lymphatic: no lymphadenopathy noted Resp normal respiratory effort and clear to auscultation bilaterally Effort and Inspection: able to speak in complete sentences Cardio regular rate and regular rhythm GI non-tender Extremity normal capillary refill Extremity Narrative: +1-+2 non pitting edema bilateral lower legs. She has been wearing MARYCARMEN wraps for compression, which has helped with edema. Skin Wound Narrative: Left anterior leg ulcer is healed today! Neuro CN's II-XII intact bilaterally Speech: speech normal Psych affect normal Speech: normal speech Debridement Note Debridement Note No debridement was completed: No debridement was completed today Post-Debridement Measurements and Additional Note: Post-Debridement Measurements/Treatment - Nurse 1 - General Ulcer Assessment Start: 11/27/23 10:07 Freq: Status: Active Protocol: PERRY Activity Type Activity Date Activity User E-sign Co-sign Detail Recorded Client Recorded Date Recorded By Document 11/27/23 10:07 KW Desktop 11/27/23 10:12 KW 11/27/23 10:07 WC - Today's Visit Information Type of service Follow-up Visit (Physician/HEAD OF STORE OPERATIONS ) Arrival Mode Ambulatory Patient Identification Verified (Name & Yes ) Height and Weight Body Mass Index (BMI) 49.7 BMI Classification Obese Vital Signs Temperature (97.8 F-99.1 F) 96.6 F L Temperature Source Temporal Pulse Rate (60-100) 64 Pulse Location Monitor Respiratory Rate (12-18) 18 Respiratory rate source Observation Oxygen Delivery Method Room Air Blood Pressure (90/60-120/80) 150/72 H Blood Pressure Mean (mm Hg) 98 Source Monitor Position Semi-Fowlers Blood Pressure Location Left Forearm History Since Last Visit- (Skip if this is Patient's initial visit) Have you changed medications since your No last visit? Any new allergies or adverse reactions No Had a fall/change in ADL's that may No increase risk of falls Signs or symptoms of abuse and/or No neglect since last visit Have you been in the hospital since your No last visit? Has dressing in place as prescribed Yes Has compression in place as prescribed No Has offloadiing in place as prescribed No Experienced any changes in pain level or No management Left Footwear Regular Shoe Right Footwear Regular Shoe Pain Scale: 0-10 Numeric Is Patient Pain Free? Yes - Nurse 1 - General Ulcer Measurement Start: 11/27/23 10:07 Freq: Status: Active Protocol: Activity Type Activity Date Activity User E-sign Co-sign Detail Recorded Client Recorded Date Recorded By Document 11/27/23 10:07 KW Desktop 11/27/23 10:12 11/27/23 10:07 Wound Center Nurse 1 #7- L TORRES -Current Size (cm) - Length 0 -Current Size (cm) - Width 0 -Current Size (cm) - Depth 0 -Total Square Cm 0 -Date of Last Picture (Recall this 11/27/23 field) -Photo Taken Yes - Nurse 2 - General Ulcer CM Notes Start: 11/27/23 10:07 Freq: Status: Active Protocol: Activity Type Activity Date Activity User E-sign Co-sign Detail Recorded Client Recorded Date Recorded By Document 11/27/23 10:19 Laptop 11/27/23 10:19 11/27/23 10:19 Wound Center Nurse 2 -Correct Patient No -Correct Side, Site, Position No -Correct Procedure No -Procedure Performed No -Post Debridement (cm) - Length 0 -Post Debridement (cm) - Width 0 -Post Debridement (cm) - Depth 0 -Total Square (Post) (cm) 0 -Area of Debridement (cm) - Length 0 -Area of Debridement (cm) - Width 0 -Total Square (Area) (cm) 0 -Wound/Ulcer Outcome Healed- Epithelialized Pain Scale: 0-10 Numeric Is Patient Pain Free? Yes - Nurse 3 - General Ulcer D/C NN Start: 11/27/23 10:07 Freq: Status: Active Protocol: Activity Type Activity Date Activity User E-sign Co-sign Detail Recorded Client Recorded Date Recorded By Document 11/27/23 10:20 Laptop 11/27/23 10:20 11/27/23 10:20 Wound Care Center Nurse 3 Right -Compression Wrap Marycarmen Wrap Left -Compression Wrap Marycarmen Wrap Pain Scale: 0-10 Numeric Is Patient Pain Free? Yes - Visit Discharge Discharge Condition Stable Ambulatory Status Ambulatory Transportation Private Auto Medication Reconcilliation completed & Yes provided to patient/care provider Clinical Summary of Care Provided Yes Assessment/Plan Assessment/Plan (1) Chronic ulcer of left leg with fat layer exposed: CODE(S): L97.922 - Non-pressure chronic ulcer of unspecified part of left lower leg with fat layer exposed (2) Wound of right lower extremity: CODE(S): S81.801A - Unspecified open wound, right lower leg, initial encounter QUALIFIERS: Encounter type: initial encounter Qualified Code(s): S81.801A - Unspecified open wound, right lower leg, initial encounter (3) Edema of both lower extremities: CODE(S): R60.0 - Localized edema (4) Venous insufficiency (chronic) (peripheral): CODE(S): I87.2 - Venous insufficiency (chronic) (peripheral) (5) Diabetes mellitus type 2, uncontrolled, with complications: CODE(S): E11.8 - Type 2 diabetes mellitus with unspecified complications; E11.65 - Type 2 diabetes mellitus with hyperglycemia PLAN: Plan Patient was evaluated at the wound healing center today. Completed 10 applications of Epifix. Left anterior leg ulcer is healed today. Encouraged her to massage with lotion 1-2 times per day to help prevent healed scarring from drying out. Compression - Had an indepth discussion about the importance of compression and that she needs to purchase at least over the counter compression 15-20 mmHg to help control edema. She can go to [facility] and be measured for appropriate sized compression. Stressed importance of wearing something that will not roll down and cause compression and possibly reopen ulcer. She will wear double MARYCARMEN wrap until she purchases compression. Stressed importance of continuing to elevate legs when sitting. Follow-up as needed.
== END 2023-11-28 15:58 | disposition home or self-care (01) ==
LOC: WC 09:58
PROVIDERS: PCP Internal Medicine; Referring Provider Internal Medicine; Visit Provider Nurse Practitioner Family
DX: L97.922 Non-pressure chronic ulcer of unspecified part of left lower leg with fat layer exposed (principal); J44.9 Chronic obstructive pulmonary disease, unspecified; E11.9 Type 2 diabetes mellitus without complications; I89.0 Lymphedema, not elsewhere classified; I10 Essential (primary) hypertension; S81.801A Unspecified open wound, right lower leg, initial encounter; R60.0 Localized edema; I87.2 Venous insufficiency (chronic) (peripheral)
CPT/HCPCS: 99213; G0463

== ENCOUNTER 2024-01-04 12:45 | Emergency (ER) | payer MEDICAID, SELFPAY ==
[2024-01-04 12:46] VITALS: BP 179/90; PULSE 73; RESP 20; TEMP 36.6; O2SAT 95; BMI 51.6
--- NOTE | 2024-01-04 13:10 | RAD_ITS ---
STUDY: X-RAY - ABDOMEN/PELVIS REASON FOR EXAM: Female, 58 years old. Extensive fecal constipation. TECHNIQUE: AP supine and upright views of the abdomen and pelvis. COMPARISON: None. FINDINGS: Normal visualized lung bases. There is an abundance of fecal material throughout the colon. There is no demonstrated free abdominal air. The visualized liver, spleen and kidneys are grossly normal in size and morphology. Normal soft tissue structures. There are diffuse degenerative changes of the visualized lumbar spine. RAD/Abd Decub and/or Erect(Portabl IMPRESSION: Large amount of fecal material is seen in the colon. Electronically Signed: Kevin Gaxiola MD at 14:31 EST ,
--- NOTE | 2024-01-04 13:25 | EX.ED.DYSGE1 ---
HPI <Seble Chauhan RN - Last Filed: 01/04/24 13:45> History of Present Illness Chief Complaint: Constipation Informant: patient Onset/Context/Timing Onset: Days (5) Timing: Continuous Current Severity: 07/30 Maximum Severity: 07/30 Associated Symptoms Associated Symptoms: Nausea Narrative Narrative: Patient presents to the ED for constipation x 5 days. Patient reports stool softeners and enema ineffective at home. Patient reports prior history of constipation. Patient reports taking lactulose x 2 doses at home, Fleet enema x 1, and regularly takes Colace twice a day without relief. Reports having to be prescribed GoLytely in the past. Patient denies any recent diet changes. Reports abdominal and rectal pain and cramping. Rates 9 out of 10. Denies dysuria, hematuria, and urinary frequency. Prior similar symptoms: Yes Recent Illness/Hospitalization: No PFSH <Seble Chauhan RN - Last Filed: 01/04/24 13:45> PFSH Medical History ADHD (attention deficit hyperactivity disorder) Arthritis Asthma Back pain Benign hypertension Bipolar disorder Chest pain COPD (chronic obstructive pulmonary disease) Depression Diabetes Diabetes mellitus type 2, uncontrolled, with complications Essential hypertension Fatigue GERD (gastroesophageal reflux disease) Hemorrhoids Knee pain Migraines Obstructive sleep apnea Open wound of left lower extremity Pain syndrome, chronic PTSD (post-traumatic stress disorder) Schizo affective schizophrenia Stasis dermatitis of both legs Super obese Venous insufficiency of both lower extremities Home Medications bupropion HCl 300 mg 24 hr tablet, extended release 450 mg PO DAILY mental health 03/05/17 [History Last Taken 07/07/18] albuterol sulfate 90 mcg/actuation aerosol inhaler 2 puff inhalation Q4H PRN PRN Sob &/Or Wheezing 05/29/18 [History Last Taken 07/07/18] glimepiride 2 mg tablet 4 mg PO BID diabetes 09/20/18 [History Last Taken Unknown] dicyclomine 10 mg capsule 20 mg (2 x 10 mg) PO TIDAC #20 caps 07/28/19 [Rx Last Taken Unknown] escitalopram oxalate 10 mg tablet 20 mg PO DAILY mental health 08/04/19 [History Last Taken Unknown] fluticasone propionate 50 mcg/actuation nasal spray,suspension 2 spray NASAL DAILY allergies 08/04/19 [History Last Taken Unknown] tizanidine 4 mg capsule 4 mg PO BID PRN Muscle Spasm 07/15/20 [History Last Taken Unknown] aspirin 81 mg chewable tablet 81 mg PO DAILY@0800 07/17/20 [Rx Last Taken Unknown] nadolol 80 mg tablet 80 mg PO BID high blood pressure 07/08/21 [History Last Taken Unknown] buspirone 10 mg tablet 20 mg PO TID 01/25/22 [History Last Taken Unknown] cetirizine 10 mg tablet (Zyrtec) 10 mg PO DAILY 01/25/22 [History Last Taken Unknown] colchicine 0.6 mg tablet 0.6 mg PO DAILY 01/25/22 [History Last Taken Unknown] guaifenesin 600 mg tablet, extended release 12 hr (Mucinex) 1,200 mg PO BID PRN Cough 01/25/22 [History Last Taken Unknown] hydroxyzine pamoate 25 mg capsule (Vistaril) 25 - 75 mg PO BID PRN Itching 01/25/22 [History Last Taken Unknown] hyoscyamine sulfate 0.125 mg tablet (Levsin) 0.125 mg PO Q6H PRN IBS 01/25/22 [History Last Taken Unknown] ketorolac 10 mg tablet 10 mg PO Q6H PRN SEVERE HEADACHE 01/25/22 [History Last Taken Unknown] lidocaine 4 % topical cream 1 applic topical TID PRN Pain 01/25/22 [History Last Taken Unknown] lisinopril 20 mg tablet 10 mg PO BID 01/25/22 [History Last Taken Unknown] lorazepam 0.5 mg tablet (Ativan) 0.5 - 1 mg PO BID PRN Panic Attack(S) 01/25/22 [History Last Taken Unknown] naratriptan 2.5 mg tablet (Amerge) 2.5 mg PO Q4H PRN Headache 01/25/22 [History Last Taken Unknown] primidone 250 mg tablet 250 mg PO BID 01/25/22 [History Last Taken Unknown] trazodone 50 mg tablet 150 mg PO QHS 01/25/22 [History Last Taken Unknown] triamcinolone acetonide 0.1 % topical cream 1 applic topical TID PRN Rash 01/25/22 [History Last Taken Unknown] fluticasone 500 mcg-salmeterol 50 mcg/dose blistr powdr for inhalation 1 inh inhalation BID 05/02/22 [History Last Taken Unknown] insulin glargine 100 unit/mL (3 mL) subcutaneous pen (Lantus Solostar U-100 Insulin) 43 unit subcut QHS 05/02/22 [History Last Taken Unknown] omeprazole 40 mg capsule,delayed release 40 mg PO DAILY 05/02/22 [History Last Taken Unknown] oxybutynin chloride 10 mg tablet,extended release 24 hr 20 mg PO DAILY 05/02/22 [History Last Taken Unknown] paliperidone palmitate 117 mg/0.75 mL intramuscular syringe (Invega Sustenna) 117 mg IM [id number] 05/02/22 [History Last Taken Unknown] ergocalciferol (vitamin D2) 1,250 mcg (50,000 unit) capsule (Vitamin D2) 50,000 unit PO 2XW 08/10/22 [History Last Taken Unknown] insulin lispro 100 unit/mL subcutaneous pen See Rx Instructions subcut QAC 08/10/22 [History Last Taken Unknown] lactulose 10 gram/15 mL oral solution 30 ml PO BID PRN Constipation 08/10/22 [History Last Taken Unknown] pregabalin 150 mg capsule 150 mg PO TID 08/10/22 [History Last Taken Unknown] valacyclovir 500 mg tablet 500 mg PO DAILY 08/10/22 [History Last Taken Unknown] ondansetron 4 mg disintegrating tablet 8 mg (2 x 4 mg) PO Q8H PRN PRN Nausea #20 tabs 05/08/23 [Rx Last Taken Unknown] promethazine 25 mg tablet 25 mg PO Q6H PRN nausea and vomiting 7 days #28 tabs 05/10/23 [Rx Last Taken Unknown] hydrocodone-acetaminophen 5-325mg 5mg-325mg 1 tab PO Q6H PRN pain 08/28/23 [History Last Taken Unknown] Allergy/AdvReac Type Severity Reaction Status Date / Time vancomycin Allergy Severe BURNING Verified 01/04/24 12:46 RED RASH ON LEGGS amlodipine [From Norvasc] Allergy Swelling Verified 01/04/24 12:46 cefazolin sodium [From Ancef] Allergy Hives Verified 01/04/24 12:46 fexofenadine [From Nia] Allergy Shortness Verified 01/04/24 12:46 of breath nitrofurantoin Allergy Hives Verified 01/04/24 12:46 [From Macrobid] peanut Allergy Shortness Verified 01/04/24 12:46 of breath Penicillins Allergy Hives Verified 01/04/24 12:46 sumatriptan [From Imitrex] Allergy Shortness Verified 01/04/24 12:46 of breath adhesive AdvReac BURNING Verified 01/04/24 12:46 amitriptyline [From Elavil] AdvReac Other Verified 01/04/24 12:46 clindamycin AdvReac Diarrhea Verified 01/04/24 12:46 ziprasidone [From Geodon] AdvReac NEEDS Verified 01/04/24 12:46 FOLLOW-UP Family History Father CVA (cerebral vascular accident) Heart disease Mother Heart disease Surgical History H/O hernia repair History of arthroscopic knee surgery History of elbow surgery (~06/2020) History of left heart catheterization (07/16/20) Hx of section Hx of hysterectomy Kidney stone Social History household members: spouse Smoking Status: Never smoker alcohol intake: current alcohol intake frequency: holidays/special occasions only Alcohol type: wine substance use type: does not use caffeine: Yes (occasionally) ROS <Seble Chauhan RN - Last Filed: 01/04/24 13:45> ROS ED Constitutional Constitutional ED: Denies chills, fever(s) or sweats Cardiovascular Cardiovascular: Denies chest pain or palpitations Respiratory/Chest Respiratory/Chest: Denies cough or dyspnea Gastrointestinal Gastrointestinal: Reports abdominal pain, constipation and nausea; Denies diarrhea or vomiting Genitourinary Genitourinary ED: Denies dysuria, hematuria or urinary frequency Neurologic Neurologic: Denies weakness EXAM <Seble Chauhan RN - Last Filed: 01/04/24 13:45> Physical Exam Const Vital Signs: 01/04/24 12:46 Temperature 98 F Temperature Source Temporal Pulse Rate 73 Respiratory Rate 20 H Blood Pressure 179/90 H Blood Pressure Mean 119 Pulse Ox 95 Oxygen Delivery Method Room Air Positive well nourished, well developed and obese General Appearance ED: well developed and NAD Nutritional Appearance: obese HEENT Reports moist mucous membranes Eyes PERRL Chest Wall inspection of chest normal and palpation of chest normal Resp normal respiratory effort and clear to auscultation bilaterally Cardio regular rate, regular rhythm, S1 normal heart sound and S2 normal heart sound GI Auscultation: normoactive bowel sounds Palpation: soft and tender LLQ, RLQ, LUQ and RUQ Extremity normal to inspection Extremity Narrative: Mild bilateral pedal edema General Extremety ED: Yes edema General Extremity: edema Neuro oriented x3 Sensorium / Orientation: alert Motor Exam: strength 5/5 throughout Psych mental status grossly normal Psych Narrative: Patient anxious and tearful. Patient reports past history of constipation which she went 14 days without a bowel movement. Patient reports caused her PTSD. Mood & Affect: anxious and tearful Skin no rashes or lesions noted <Dr. Oni Lester MD - Last Filed: 01/04/24 13:47> Physical Exam Const Vital Signs: 01/04/24 12:46 Temperature 98 F Temperature Source Temporal Pulse Rate 73 Respiratory Rate 20 H Blood Pressure 179/90 H Blood Pressure Mean 119 Pulse Ox 95 Oxygen Delivery Method Room Air MDM <Seble Chauhan RN - Last Filed: 01/04/24 13:45> [facility] Narrative Medical decision making narrative: KUB ordered to evaluate for acute abdominal process History & Record Review Discussion w/independent historian: Patient Radiography Diagnostic Testing: KUB shows no acute process. Does show stool in the rectum. Differential Diagnosis Abdominal Pain: Bowel obstruction and UTI Management Discussion w/another healthcare provider: Other (Dr. Lester, ED provider.) Treatment and Re-Evaluation :: Upon reevaluation, there is no change in patient condition. KUB showed stool in the rectum. Patient will be discharged home with [facility] and instructed to drink 8 ounces every hour until bowel movement. Patient instructed to return for worsening abdominal pain. Patient will follow-up with PCP as needed. <Dr. Oni Lester MD - Last Filed: 01/04/24 13:47> [facility] Narrative Medical decision making narrative: KUB ordered to evaluate for acute abdominal process I have personally performed a face to face assessment of the patient and have reviewed the LILY Note. I performed a substantive portion of the visit including all aspects of the following. My cardoza findings include: History is [58-year-old female history of constipation bleeding no bowel movement for 4 to 5 days.] Exam is [4-year-old female no acute distress vital signs stable afebrile. H EENT exam unremarkable. Lungs are clear. Heart regular rhythm. Abdomen soft, nondistended, normal bowel sounds without peritoneal signs. No significant tenderness. No hernia or mass. No obstruction. Moving all 4 extremities. Neurologically she is awake alert with no focal motor deficits.] Medical Decision Making [KUB showed increased stool in the rectum. Patient be discharged home. Treated for constipation. GoLytely. Follow-up if not improving. Return if worse.] Other additions or changes: [None] Radiography Diagnostic Testing: KUB shows no acute process. Does show stool in the rectum. No free air. No dilated bowel. No obstruction. Discharge Plan Triage Chief Complaint: Constipation ED Provider: Oni Lester Dx/Rx/DC Orders Prescriptions: No Action omeprazole 40 mg capsule,delayed release(DR/EC) 40 mg PO DAILY oxybutynin chloride 10 mg tablet extended release 24hr 20 mg PO DAILY Invega Sustenna 117 mg/0.75 mL syringe 117 mg IM [id number] pregabalin 150 mg capsule 150 mg PO TID Patient Comments: take 1 capsule by mouth three times a day valacyclovir 500 mg tablet 500 mg PO DAILY Patient Comments: take 1 tablet by mouth once daily ergocalciferol (vitamin D2) [Vitamin D2] 1,250 mcg (50,000 unit) capsule 50,000 unit PO 2XW insulin lispro 100 unit/mL insulin pen See Rx Instructions subcut QAC Rx Instructions: 4 units + sliding scale subcutaneously before meals; bupropion HCl 300 MG tablet extended release 24 hr 450 mg PO DAILY Patient Comments: DEPRESSION albuterol sulfate 1 INHALER inhaler 2 puff INHALATION Q4H PRN PRN (Reason: Sob &/Or Wheezing) dicyclomine 10 MG capsule 20 mg PO TIDAC Qty: 20 0RF fluticasone propionate 1 SPRAY spray,suspension 2 spray NASAL DAILY escitalopram oxalate 10 MG tablet 20 mg PO DAILY tizanidine 4 MG capsule 4 mg PO BID PRN (Reason: Muscle Spasm) aspirin 81 MG tablet,chewable 81 mg PO DAILY@0800 0RF Lantus Solostar U-100 Insulin 100 unit/mL (3 mL) insulin pen 43 unit SUBCUT QHS trazodone 50 mg Tablet 150 mg PO QHS cetirizine [Zyrtec] 10 mg Tablet 10 mg PO DAILY lidocaine 4 % Cream 1 applic TOPICAL TID PRN (Reason: Pain) triamcinolone acetonide 0.1 % Cream 1 applic TOPICAL TID PRN (Reason: Rash) ketorolac 10 mg Tablet 10 mg PO Q6H PRN (Reason: SEVERE HEADACHE) primidone 250 mg Tablet 250 mg PO BID lorazepam [Ativan] 0.5 mg Tablet 0.5 - 1 mg PO BID PRN (Reason: Panic Attack(S)) hyoscyamine sulfate [Levsin] 0.125 mg Tablet 0.125 mg PO Q6H PRN (Reason: IBS) buspirone 10 mg Tablet 20 mg PO TID colchicine 0.6 mg Tablet 0.6 mg PO DAILY naratriptan [Amerge] 2.5 mg Tablet 2.5 mg PO Q4H PRN (Reason: Headache) hydroxyzine pamoate [Vistaril] 25 mg Capsule 25 - 75 mg PO BID PRN (Reason: Itching) guaifenesin [Mucinex] 600 mg Tablet Extended Release 12hr 1,200 mg PO BID PRN (Reason: Cough) lisinopril 20 MG tablet 10 mg PO BID fluticasone propion-salmeterol 500-50 mcg/dose blister with device 1 inh INHALATION BID lactulose 10 gram/15 mL solution 30 ml PO BID PRN (Reason: Constipation) promethazine 25 mg tablet 25 mg PO Q6H PRN (Reason: nausea and vomiting) 7 Days Qty: 28 0RF ondansetron 4 MG tablet 8 mg PO Q8H PRN PRN (Reason: Nausea) Qty: 20 0RF hydrocodone-acetaminophen 5-325 mg tablet 1 tab PO Q6H PRN (Reason: pain) glimepiride 2 mg tablet 4 mg PO BID Patient Comments: BLOOD SUGAR nadolol 80 mg tablet 80 mg PO BID Patient Comments: BLOOD PRESSURE Primary Care Provider: Cristal Wolf Referrals: Cristal Wolf MD [Primary Care Provider] -
[2024-01-04] MEDS: Electrolyte Solution/Peg's 4000 ML 2000 ML PO (14:42)
[2024-01-04 14:44] VITALS: BP 160/100; PULSE 68; RESP 16; TEMP 36.6; O2SAT 96
== END 2024-01-04 14:50 | disposition home or self-care (01) ==
PROVIDERS: Emergency Provider Emergency Medicine; PCP Internal Medicine; Visit Provider Emergency Medicine
DX: R11.0 Nausea (principal); F31.9 Bipolar disorder, unspecified; E11.9 Type 2 diabetes mellitus without complications; E66.9 Obesity, unspecified; K59.00 Constipation, unspecified; G47.33 Obstructive sleep apnea (adult) (pediatric); K21.9 Gastro-esophageal reflux disease without esophagitis; I10 Essential (primary) hypertension; J45.909 Unspecified asthma, uncomplicated; F90.9 Attention-deficit hyperactivity disorder, unspecified type
CPT/HCPCS: 74019; 99283

== ENCOUNTER 2024-01-17 11:26 | Emergency (ER) | payer MEDICAID, SELFPAY ==
[2024-01-17] VITALS (8 sets, daily range): BP systolic 145–169; BP diastolic 86–106; PULSE 52–76; RESP 14–23; TEMP 36.8; O2SAT 92–98; BMI 51.2
--- NOTE | 2024-01-17 11:47 | EX.ED.DYSGE1 ---
HPI History of Present Illness Chief Complaint: Overdose Informant: patient Onset/Context/Timing Onset: Today Context: Sudden Onset Timing: Continuous Quality: Sleepy Location: Generalized Worsened by: Nothing Relieved by: Nothing Narrative Narrative: Patient presents with accidental overdose of tizanidine. Patient states she had a bottle of her tizanidine sitting next to a bottle of her morning medications. Patient states she accidentally took the tizanidine instead of her normal morning medications. Patient states she took 10 tablets of 4 mg each. Patient states she feels sleepy. Patient denies any chest pain. Patient admits to some shortness of breath and cough. Patient denies any fevers or chills. Patient admits to mild headache. [facility] Medical History ADHD (attention deficit hyperactivity disorder) Arthritis Asthma Back pain Benign hypertension Bipolar disorder Chest pain COPD (chronic obstructive pulmonary disease) Depression Diabetes Diabetes mellitus type 2, uncontrolled, with complications Essential hypertension Fatigue GERD (gastroesophageal reflux disease) Hemorrhoids Knee pain Migraines Obstructive sleep apnea Open wound of left lower extremity Pain syndrome, chronic PTSD (post-traumatic stress disorder) Schizo affective schizophrenia Stasis dermatitis of both legs Super obese Venous insufficiency of both lower extremities Home Medications bupropion HCl 300 mg 24 hr tablet, extended release 450 mg PO DAILY mental health 03/05/17 [History Last Taken 07/07/18] albuterol sulfate 90 mcg/actuation aerosol inhaler 2 puff inhalation Q4H PRN PRN Sob &/Or Wheezing 05/29/18 [History Last Taken 07/07/18] glimepiride 2 mg tablet 4 mg PO BID diabetes 09/20/18 [History Last Taken Unknown] dicyclomine 10 mg capsule 20 mg (2 x 10 mg) PO TIDAC #20 caps 07/28/19 [Rx Last Taken Unknown] escitalopram oxalate 10 mg tablet 20 mg PO DAILY mental health 08/04/19 [History Last Taken Unknown] fluticasone propionate 50 mcg/actuation nasal spray,suspension 2 spray NASAL DAILY allergies 08/04/19 [History Last Taken Unknown] tizanidine 4 mg capsule 4 mg PO BID PRN Muscle Spasm 07/15/20 [History Last Taken Unknown] aspirin 81 mg chewable tablet 81 mg PO DAILY@0800 07/17/20 [Rx Last Taken Unknown] nadolol 80 mg tablet 80 mg PO BID high blood pressure 07/08/21 [History Last Taken Unknown] buspirone 10 mg tablet 20 mg PO TID 01/25/22 [History Last Taken Unknown] cetirizine 10 mg tablet (Zyrtec) 10 mg PO DAILY 01/25/22 [History Last Taken Unknown] colchicine 0.6 mg tablet 0.6 mg PO DAILY 01/25/22 [History Last Taken Unknown] guaifenesin 600 mg tablet, extended release 12 hr (Mucinex) 1,200 mg PO BID PRN Cough 01/25/22 [History Last Taken Unknown] hydroxyzine pamoate 25 mg capsule (Vistaril) 25 - 75 mg PO BID PRN Itching 01/25/22 [History Last Taken Unknown] hyoscyamine sulfate 0.125 mg tablet (Levsin) 0.125 mg PO Q6H PRN IBS 01/25/22 [History Last Taken Unknown] ketorolac 10 mg tablet 10 mg PO Q6H PRN SEVERE HEADACHE 01/25/22 [History Last Taken Unknown] lidocaine 4 % topical cream 1 applic topical TID PRN Pain 01/25/22 [History Last Taken Unknown] lisinopril 20 mg tablet 10 mg PO BID 01/25/22 [History Last Taken Unknown] lorazepam 0.5 mg tablet (Ativan) 0.5 - 1 mg PO BID PRN Panic Attack(S) 01/25/22 [History Last Taken Unknown] naratriptan 2.5 mg tablet (Amerge) 2.5 mg PO Q4H PRN Headache 01/25/22 [History Last Taken Unknown] primidone 250 mg tablet 250 mg PO BID 01/25/22 [History Last Taken Unknown] trazodone 50 mg tablet 150 mg PO QHS 01/25/22 [History Last Taken Unknown] triamcinolone acetonide 0.1 % topical cream 1 applic topical TID PRN Rash 01/25/22 [History Last Taken Unknown] fluticasone 500 mcg-salmeterol 50 mcg/dose blistr powdr for inhalation 1 inh inhalation BID 05/02/22 [History Last Taken Unknown] insulin glargine 100 unit/mL (3 mL) subcutaneous pen (Lantus Solostar U-100 Insulin) 43 unit subcut QHS 05/02/22 [History Last Taken Unknown] omeprazole 40 mg capsule,delayed release 40 mg PO DAILY 05/02/22 [History Last Taken Unknown] oxybutynin chloride 10 mg tablet,extended release 24 hr 20 mg PO DAILY 05/02/22 [History Last Taken Unknown] paliperidone palmitate 117 mg/0.75 mL intramuscular syringe (Invega Sustenna) 117 mg IM [id number] 05/02/22 [History Last Taken Unknown] ergocalciferol (vitamin D2) 1,250 mcg (50,000 unit) capsule (Vitamin D2) 50,000 unit PO 2XW 08/10/22 [History Last Taken Unknown] insulin lispro 100 unit/mL subcutaneous pen See Rx Instructions subcut QAC 08/10/22 [History Last Taken Unknown] lactulose 10 gram/15 mL oral solution 30 ml PO BID PRN Constipation 08/10/22 [History Last Taken Unknown] pregabalin 150 mg capsule 150 mg PO TID 08/10/22 [History Last Taken Unknown] valacyclovir 500 mg tablet 500 mg PO DAILY 08/10/22 [History Last Taken Unknown] ondansetron 4 mg disintegrating tablet 8 mg (2 x 4 mg) PO Q8H PRN PRN Nausea #20 tabs 05/08/23 [Rx Last Taken Unknown] promethazine 25 mg tablet 25 mg PO Q6H PRN nausea and vomiting 7 days #28 tabs 05/10/23 [Rx Last Taken Unknown] hydrocodone-acetaminophen 5-325mg 5mg-325mg 1 tab PO Q6H PRN pain 08/28/23 [History Last Taken Unknown] Allergy/AdvReac Type Severity Reaction Status Date / Time vancomycin Allergy Severe BURNING Verified 01/17/24 11:26 RED RASH ON LEGGS amlodipine [From Norvasc] Allergy Swelling Verified 01/17/24 11:26 cefazolin sodium [From Ancef] Allergy Hives Verified 01/17/24 11:26 fexofenadine [From Nia] Allergy Shortness Verified 01/17/24 11:26 of breath nitrofurantoin Allergy Hives Verified 01/17/24 11:26 [From Macrobid] peanut Allergy Shortness Verified 01/17/24 11:26 of breath Penicillins Allergy Hives Verified 01/17/24 11:26 sumatriptan [From Imitrex] Allergy Shortness Verified 01/17/24 11:26 of breath adhesive AdvReac BURNING Verified 01/17/24 11:26 amitriptyline [From Elavil] AdvReac Other Verified 01/17/24 11:26 clindamycin AdvReac Diarrhea Verified 01/17/24 11:26 ziprasidone [From Geodon] AdvReac NEEDS Verified 01/17/24 11:26 FOLLOW-UP Family History Father CVA (cerebral vascular accident) Heart disease Mother Heart disease Surgical History H/O hernia repair History of arthroscopic knee surgery History of elbow surgery (~06/2020) History of left heart catheterization (07/16/20) Hx of section Hx of hysterectomy Kidney stone Social History household members: spouse Smoking Status: Never smoker alcohol intake: current alcohol intake frequency: holidays/special occasions only Alcohol type: wine substance use type: does not use caffeine: Yes (occasionally) ROS ROS ED Constitutional Constitutional ED: Denies chills or fever(s) Eyes Eyes: Denies blurry vision or change in vision ENT ENT ED: Denies rhinorrhea or sore throat Cardiovascular Cardiovascular: Denies chest pain or palpitations Respiratory/Chest Respiratory/Chest: Reports cough and dyspnea Gastrointestinal Gastrointestinal: Denies nausea or vomiting Genitourinary Genitourinary ED: Denies dysuria or hematuria Musculoskeletal Musculoskeletal: Denies back pain or neck pain Integumentary Denies abscess or rash Neurologic Neurologic: Reports headache(s); Denies weakness Allergic/Immunologic Allergic/Immunologic ED: Denies mouth swelling or urticaria EXAM Physical Exam Const Vital Signs: 01/17/24 11:27 01/17/24 12:37 01/17/24 12:37 Temperature 98.2 F Temperature Source Temporal Pulse Rate 76 53 L Respiratory Rate 14 23 H Blood Pressure 149/89 H 157/104 H Blood Pressure Mean 109 121 Pulse Ox 92 96 Oxygen Delivery Method Room Air Room Air Nasal Cannula Oxygen Flow Rate (L/min) 1 01/17/24 13:47 01/17/24 14:29 01/17/24 15:01 Temperature Temperature Source Pulse Rate 52 L 54 L 53 L Respiratory Rate 20 H 20 H 19 H Blood Pressure 154/103 H 149/101 H 145/86 H Blood Pressure Mean 120 117 105 Pulse Ox 96 95 96 Oxygen Delivery Method Room Air Nasal Cannula Nasal Cannula Oxygen Flow Rate (L/min) 1 1 01/17/24 15:43 Temperature Temperature Source Pulse Rate 53 L Respiratory Rate 19 H Blood Pressure 169/106 H Blood Pressure Mean 127 Pulse Ox 98 Oxygen Delivery Method Nasal Cannula Oxygen Flow Rate (L/min) 1 Positive well nourished, well developed and obese General Appearance ED: well developed and NAD Nutritional Appearance: obese HEENT Reports dry mucous membranes Mouth ED: Yes dry mucous membranes Mouth: dry mucous membranes Neck supple and no JVD Chest Wall inspection of chest normal and palpation of chest normal Resp Auscultation: diminished lung sounds diffuse Cardio regular rate and regular rhythm GI non-tender and non-distended Palpation: soft Neuro oriented x3, CN's II-XII intact bilaterally and no sensory deficits noted Sensorium / Orientation: alert Motor Exam: strength 5/5 throughout MDM MDM MDM Narrative Medical decision making narrative: Differential diagnosis includes medication overdose, anxiety, cardiac dysrhythmia, and cardiac ischemia. EKG will be obtained to assess for cardiac dysrhythmia and cardiac ischemia. CBC will be obtained to assess for leukocytosis and anemia. Basic metabolic profile will be obtained to assess for renal function and electrolyte abnormality. Chest x-ray will be obtained to assess for pneumonia. Lab Data Attestation: I reviewed the patient's lab results. Lab results narrative: CBC was reviewed and was within normal limits. Basic metabolic profile was reviewed. Glucose was elevated at 278. Anion gap was normal. Electrolytes were normal. Labs: Laboratory Results - last 24 hr 01/17/24 11:50 WBC 4.4 RBC 4.83 Hgb 12.1 Hct 39.6 MCV 82.0 MCH 25.1 L MCHC 30.6 L RDW Std Deviation 47.5 H RDW Coeff of Jocy 15.9 H Plt Count 180 MPV 9.4 Immature Gran % (Auto) 0.500 Neut % (Auto) 65.8 Lymph % (Auto) 21.4 [place] % (Auto) 12.3 H Eos % (Auto) 0.0 Baso % (Auto) 0.0 Absolute Neuts (auto) 2.9 Absolute Lymphs (auto) 0.94 Nucleated RBC % 0 Sodium 137 Potassium 4.6 Chloride 102 Carbon Dioxide 24.0 Anion Gap 11 BUN 17 Creatinine 0.92 Estim Creat Clear Calc 92.47 Est GFR (MDRD) Af Amer 80 Est GFR (MDRD) Non-Af 66 BUN/Creatinine Ratio 18.5 Glucose 278 H Calcium 9.3 Radiography Diagnostic Testing: Clinical Impression(s) from Imaging Studies Chest X-Ray 01/17/24 11:51 IMPRESSION: Stable elevation of the right hemidiaphragm. No acute abnormality is seen. Electronically Signed: Kevin Gaxiola MD at 13:19 EST , Portable 1 view chest x-ray was obtained. On my independent interpretation, lung hester are clear. There is elevation of the right hemidiaphragm. There is normal cardiac silhouette. Bony thorax is normal. There is no acute process noted. Radiologist also interpreted the x-ray and agrees. EKG Initial EKG: Comments: EKG was obtained. On my independent interpretation, it shows a sinus bradycardia with a rate of 57. DE interval was normal at 182 ms. QRS interval was normal at 102 ms. QTc interval was normal at 373 ms. There is left axis deviation at -43. There are nonspecific ST-T wave changes noted. This is unchanged compared to previous EKG. Prior EKG tracings: available for review Prior: Unchanged (01/12/2022) Treatment and Re-Evaluation :: Patient was given IV fluids. Patient was monitored here in the emergency department. Case was discussed with poison control. They recommended observing the patient for 6 hours postingestion for bradycardia and hypotension. Patient was advised of her findings. If the patient does not develop any significant bradycardia or hypotension, the patient can be discharged home. Patient was given instructions to follow-up with her primary care physician in 5 to 7 days. Patient was instructed to drink plenty of fluids. Patient was instructed to return if worse in any way. Patient and family understood and were agreeable with the plan. All questions were answered. Discharge Plan Triage Chief Complaint: Overdose ED Provider: Marek Bailey Dx/Rx/DC Orders Clinical Impression: Accidental medication overdose, Benign hypertension Instructions: ED Accidental Ingestion ... Prescriptions: No Action omeprazole 40 mg capsule,delayed release(DR/EC) 40 mg PO DAILY oxybutynin chloride 10 mg tablet extended release 24hr 20 mg PO DAILY Invega Sustenna 117 mg/0.75 mL syringe 117 mg IM [id number] pregabalin 150 mg capsule 150 mg PO TID Patient Comments: take 1 capsule by mouth three times a day valacyclovir 500 mg tablet 500 mg PO DAILY Patient Comments: take 1 tablet by mouth once daily ergocalciferol (vitamin D2) [Vitamin D2] 1,250 mcg (50,000 unit) capsule 50,000 unit PO 2XW insulin lispro 100 unit/mL insulin pen See Rx Instructions subcut QAC Rx Instructions: 4 units + sliding scale subcutaneously before meals; bupropion HCl 300 MG tablet extended release 24 hr 450 mg PO DAILY Patient Comments: DEPRESSION albuterol sulfate 1 INHALER inhaler 2 puff INHALATION Q4H PRN PRN (Reason: Sob &/Or Wheezing) dicyclomine 10 MG capsule 20 mg PO TIDAC Qty: 20 0RF fluticasone propionate 1 SPRAY spray,suspension 2 spray NASAL DAILY escitalopram oxalate 10 MG tablet 20 mg PO DAILY tizanidine 4 MG capsule 4 mg PO BID PRN (Reason: Muscle Spasm) aspirin 81 MG tablet,chewable 81 mg PO DAILY@0800 0RF Lantus Solostar U-100 Insulin 100 unit/mL (3 mL) insulin pen 43 unit SUBCUT QHS trazodone 50 mg Tablet 150 mg PO QHS cetirizine [Zyrtec] 10 mg Tablet 10 mg PO DAILY lidocaine 4 % Cream 1 applic TOPICAL TID PRN (Reason: Pain) triamcinolone acetonide 0.1 % Cream 1 applic TOPICAL TID PRN (Reason: Rash) ketorolac 10 mg Tablet 10 mg PO Q6H PRN (Reason: SEVERE HEADACHE) primidone 250 mg Tablet 250 mg PO BID lorazepam [Ativan] 0.5 mg Tablet 0.5 - 1 mg PO BID PRN (Reason: Panic Attack(S)) hyoscyamine sulfate [Levsin] 0.125 mg Tablet 0.125 mg PO Q6H PRN (Reason: IBS) buspirone 10 mg Tablet 20 mg PO TID colchicine 0.6 mg Tablet 0.6 mg PO DAILY naratriptan [Amerge] 2.5 mg Tablet 2.5 mg PO Q4H PRN (Reason: Headache) hydroxyzine pamoate [Vistaril] 25 mg Capsule 25 - 75 mg PO BID PRN (Reason: Itching) guaifenesin [Mucinex] 600 mg Tablet Extended Release 12hr 1,200 mg PO BID PRN (Reason: Cough) lisinopril 20 MG tablet 10 mg PO BID fluticasone propion-salmeterol 500-50 mcg/dose blister with device 1 inh INHALATION BID lactulose 10 gram/15 mL solution 30 ml PO BID PRN (Reason: Constipation) promethazine 25 mg tablet 25 mg PO Q6H PRN (Reason: nausea and vomiting) 7 Days Qty: 28 0RF ondansetron 4 MG tablet 8 mg PO Q8H PRN PRN (Reason: Nausea) Qty: 20 0RF hydrocodone-acetaminophen 5-325 mg tablet 1 tab PO Q6H PRN (Reason: pain) glimepiride 2 mg tablet 4 mg PO BID Patient Comments: BLOOD SUGAR nadolol 80 mg tablet 80 mg PO BID Patient Comments: BLOOD PRESSURE Primary Care Provider: Cristal Wolf Referrals: Cristal Wolf MD [Primary Care Provider] - 5-7 Days Disposition Disposition: Home, Self Care
--- NOTE | 2024-01-17 11:51 | RAD_ITS ---
STUDY: X-RAY CHEST REASON FOR EXAM: Female, 58 years old. Dyspnea TECHNIQUE: Single AP portable view of the chest. COMPARISON: Comparison is made with prior study dated May 08, 2023. FINDINGS: Stable elevation of the right hemidiaphragm. The lungs are clear and expanded. There is no demonstrated pleural abnormality. Normal size heart. Normal mediastinum and keli. Normal visualized pulmonary arteries. Normal visualized aortic arch and descending thoracic aorta. There are diffuse degenerative changes of the visualized thoracic spine. Normal visualized ribs, clavicles, and shoulders. There is no demonstrated abnormality of the visualized soft tissue structures of the upper abdomen. RAD/Chest 1 View (Portable) IMPRESSION: Stable elevation of the right hemidiaphragm. No acute abnormality is seen. Electronically Signed: Kevin Gaxiola MD at 13:19 EST ,
--- NOTE | 2024-01-17 11:51 | EKG12_ITS ---
Test Reason : Blood Pressure : / mmHG Vent. Rate : 057 BPM Atrial Rate : 057 BPM P-R Int : 182 ms QRS Dur : 102 ms QT Int : 384 ms P-R-T Axes : 054 -43 -73 degrees QTc Int : 373 ms Sinus bradycardia Left axis deviation Left ventricular hypertrophy with repolarization abnormality ( Harinder product ) Abnormal ECG Confirmed by BAN RIZO, UAGUSTINA ([id number]), rewrite editor KM ALANIS ([id number]) on 01/22/2024 6:57:57 AM Referred By: Confirmed By:MARANDA CEVALLOS MD
[2024-01-17] MEDS: 0.9% Normal Saline (1000mL) 1,000 ML 1000 ML IV (12:03)
[2024-01-17 12:10] LABS: Absolute Lymphocyte Count 0.94 X10^3/uL (0.83-4.51); Absolute Neutrophil Count 2.9 X10^3/uL (2.0-7.7); Hematocrit 39.6 % (37-47); Hemoglobin 12.1 g/dL (12.0-15.0); Lymphocyte # 0.94 X10^3/ul (0.83-4.51); Lymphocyte % 21.4 % (19-41); Mean Corp Hgb Conc 30.6 g/dL (32-36); Mean Corpuscular Hgb 25.1 pg (27.0-32.0); Mean Platelet Vol. 9.4 fl (6.2-12.0); Monocyte# 0.54 X10^3/uL; Monocyte% 12.3 % (0-10); NRBC Flagged by Analyzer 0 % (0-5); Neutrophil # 2.89 X10^3/uL (2.7-7.7); Neutrophil % 65.8 % (47-70); Platelet Count 180 K/mm3 (150-450); RBC Distribution Width CV 15.9 % (11.6-14.6); RBC Distribution Width SD 47.5 fl (35.1-43.9); Red Blood Count 4.83 M/mm3 (4.2-5.4); White Blood Count 4.4 K/mm3 (4.4-11.0)
[2024-01-17 12:21] LABS: Anion Gap 11 (5-15); BUN 17 mg/dL (7-18); BUN/Creat Ratio 18.5 RATIO (10-20); Calcium,Total 9.3 mg/dL (8.5-10.1); Chloride 102 mmol/L (98-107); Creatinine, Serum 0.92 mg/dL (0.55-1.02); EST Glomerular Filtration Rate 66 mL/min (>60); Est Glom Filt Rate - Afr Amer 80 mL/min (>60); Estimated Creatinine Clearance 92.47 ml/min; Glucose 278 mg/dL (74-106); Potassium 4.6 mmol/L (3.5-5.1); Sodium Level 137 mmol/L (136-145)
--- NOTE | 2024-01-17 14:57 | ED.RN ---
PT PULLED OUT IV. CATHETER INTACT, NO BLEEDING NOTED. PHYSICIAN NOTIFIED. PT WAS ALSO INCONTINENT OF URINE AND IS STATING SHE WANTS TO GO HOME. FAMILY IS LAYING ON PT AND TELLING HER ITS OK TO STAY LONGER AND COMFORTING PT IN EXCESS. EXPLAINED TO FAMILY THEY CAN LET THE PT SLEEP AND THAT WE ARE CONTINUING TO MONITOR HER.
== END 2024-01-17 17:10 | disposition home or self-care (01) ==
PROVIDERS: Emergency Provider Emergency Medicine; PCP Internal Medicine; Visit Provider Emergency Medicine
DX: T42.8X1A Poisoning by antiparkinsonism drugs and other central muscle-tone depressants, accidental (unintentional), initial encounter (principal); J44.9 Chronic obstructive pulmonary disease, unspecified; E11.9 Type 2 diabetes mellitus without complications; Z79.4 Long term (current) use of insulin; R51.9 Headache, unspecified; I10 Essential (primary) hypertension; Z79.84 Long term (current) use of oral hypoglycemic drugs; Z79.51 Long term (current) use of inhaled steroids; F32.A Depression, unspecified; Z79.82 Long term (current) use of aspirin; K21.9 Gastro-esophageal reflux disease without esophagitis; Z79.899 Other long term (current) drug therapy; Z90.710 Acquired absence of both cervix and uterus
CPT/HCPCS: 71045; 80048; 85025; 93005; 96360; 99284; J7030; A4216

== ENCOUNTER 2024-03-26 18:05 | Emergency (ER) | payer MEDICAID, SELFPAY ==
[2024-03-26 17:59] VITALS: BP 175/106; PULSE 66; RESP 18; TEMP 36.6; O2SAT 99
[2024-03-26 18:03] VITALS: BP 175/106; PULSE 66; RESP 18; TEMP 36.6; O2SAT 98; O2SAT 99; BMI 54.1
[2024-03-26 18:07] VITALS: O2SAT 99
--- NOTE | 2024-03-26 18:15 | EDS_ITS ---
HPI History of Present Illness Chief Complaint: Shortness of Breath [facility] Medical History ADHD (attention deficit hyperactivity disorder) Arthritis Asthma Back pain Benign hypertension Bipolar disorder Chest pain COPD (chronic obstructive pulmonary disease) Depression Diabetes Diabetes mellitus type 2, uncontrolled, with complications Essential hypertension Fatigue GERD (gastroesophageal reflux disease) Hemorrhoids Knee pain Migraines Obstructive sleep apnea Open wound of left lower extremity Pain syndrome, chronic PTSD (post-traumatic stress disorder) Schizo affective schizophrenia Stasis dermatitis of both legs Super obese Venous insufficiency of both lower extremities Home Medications bupropion HCl 300 mg 24 hr tablet, extended release 450 mg PO DAILY mental he alth 03/05/17 [History Last Taken 07/07/18] albuterol sulfate 90 mcg/actuation aerosol inhaler 2 puff inhalation Q4H PRN PRN Sob &/Or Wheezing 05/29/18 [History Last Taken 07/07/18] glimepiride 2 mg tablet 4 mg PO BID diabetes 09/20/18 [History Last Taken Unknown] dicyclomine 10 mg capsule 20 mg (2 x 10 mg) PO TIDAC #20 caps 07/28/19 [Rx Last Taken Unknown] escitalopram oxalate 10 mg tablet 20 mg PO DAILY mental health 08/04/19 [History Last Taken Unknown] fluticasone propionate 50 mcg/actuation nasal spray,suspension 2 spray NASAL DAILY allergies 08/04/19 [History Last Taken Unknown] tizanidine 4 mg capsule 4 mg PO BID PRN Muscle Spasm 07/15/20 [History Last Taken Unknown] aspirin 81 mg chewable tablet 81 mg PO DAILY@0800 07/17/20 [Rx Last Taken Unknown] nadolol 80 mg tablet 80 mg PO BID high blood pressure 07/08/21 [History Last Taken Unknown] buspirone 10 mg tablet 20 mg PO TID 01/25/22 [History Last Taken Unknown] cetirizine 10 mg tablet (Zyrtec) 10 mg PO DAILY 01/25/22 [History Last Taken Unknown] colchicine 0.6 mg tablet 0.6 mg PO DAILY 01/25/22 [History Last Taken Unknown] guaifenesin 600 mg tablet, extended release 12 hr (Mucinex) 1,200 mg PO BID PRN Cough 01/25/22 [History Last Taken Unknown] hydroxyzine pamoate 25 mg capsule (Vistaril) 25 - 75 mg PO BID PRN Itching 01/25/22 [History Last Taken Unknown] hyoscyamine sulfate 0.125 mg tablet (Levsin) 0.125 mg PO Q6H PRN IBS 01/25/22 [History Last Taken Unknown] ketorolac 10 mg tablet 10 mg PO Q6H PRN SEVERE HEADACHE 01/25/22 [History Last Taken Unknown] lidocaine 4 % topical cream 1 applic topical TID PRN Pain 01/25/22 [History Last Taken Unknown] lisinopril 20 mg tablet 10 mg PO BID 01/25/22 [History Last Taken Unknown] lorazepam 0.5 mg tablet (Ativan) 0.5 - 1 mg PO BID PRN Panic Attack(S) 01/25/22 [History Last Taken Unknown] naratriptan 2.5 mg tablet (Amerge) 2.5 mg PO Q4H PRN Headache 01/25/22 [History Last Taken Unknown] primidone 250 mg tablet 250 mg PO BID 01/25/22 [History Last Taken Unknown] trazodone 50 mg tablet 150 mg PO QHS 01/25/22 [History Last Taken Unknown] triamcinolone acetonide 0.1 % topical cream 1 applic topical TID PRN Rash 01/25/22 [History Last Taken Unknown] fluticasone 500 mcg-salmeterol 50 mcg/dose blistr powdr for inhalation 1 inh inhalation BID 05/02/22 [History Last Taken Unknown] insulin glargine 100 unit/mL (3 mL) subcutaneous pen (Lantus Solostar U-100 Insulin) 43 unit subcut QHS 05/02/22 [History Last Taken Unknown] omeprazole 40 mg capsule,delayed release 40 mg PO DAILY 05/02/22 [History Last Taken Unknown] oxybutynin chloride 10 mg tablet,extended release 24 hr 20 mg PO DAILY 05/02/22 [History Last Taken Unknown] paliperidone palmitate 117 mg/0.75 mL intramuscular syringe (Invega Sustenna) 117 mg IM [id number] 05/02/22 [History Last Taken Unknown] ergocalciferol (vitamin D2) 1,250 mcg (50,000 unit) capsule (Vitamin D2) 50,000 unit PO 2XW 08/10/22 [History Last Taken Unknown] insulin lispro 100 unit/mL subcutaneous pen See Rx Instructions subcut QAC 08/10/22 [History Last Taken Unknown] lactulose 10 gram/15 mL oral solution 30 ml PO BID PRN Constipation 08/10/22 [History Last Taken Unknown] pregabalin 150 mg capsule 150 mg PO TID 08/10/22 [History Last Taken Unknown] valacyclovir 500 mg tablet 500 mg PO DAILY 08/10/22 [History Last Taken Unknown] ondansetron 4 mg disintegrating tablet 8 mg (2 x 4 mg) PO Q8H PRN PRN Nausea #20 tabs 05/08/23 [Rx Last Taken Unknown] promethazine 25 mg tablet 25 mg PO Q6H PRN nausea and vomiting 7 days #28 tabs 05/10/23 [Rx Last Taken Unknown] hydrocodone-acetaminophen 5-325mg 5mg-325mg 1 tab PO Q6H PRN pain 08/28/23 [History Last Taken Unknown] Allergy/AdvReac Type Severity Reaction Status Date / Time vancomycin Allergy Severe BURNING Verified 01/17/24 11:26 RED RASH ON LEGGS amlodipine [From Norvasc] Allergy Swelling Verified 01/17/24 11:26 cefazolin sodium [From Ancef] Allergy Hives Verified 01/17/24 11:26 fexofenadine [From Nia] Allergy Shortness Verified 01/17/24 11:26 of breath nitrofurantoin Allergy Hives Verified 01/17/24 11:26 [From Macrobid] peanut Allergy Shortness Verified 01/17/24 11:26 of breath Penicillins Allergy Hives Verified 01/17/24 11:26 sumatriptan [From Imitrex] Allergy Shortness Verified 01/17/24 11:26 of breath adhesive AdvReac BURNING Verified 01/17/24 11:26 amitriptyline [From Elavil] AdvReac Other Verified 01/17/24 11:26 clindamycin AdvReac Diarrhea Verified 01/17/24 11:26 ziprasidone [From Geodon] AdvReac NEEDS Verified 01/17/24 11:26 FOLLOW-UP Family History Father CVA (cerebral vascular accident) Heart disease Mother Heart disease Surgical History H/O hernia repair History of arthroscopic knee surgery History of elbow surgery (~06/2020) History of left heart catheterization (07/16/20) Hx of section Hx of hysterectomy Kidney stone Social History household members: spouse Smoking Status: Never smoker alcohol intake: current alcohol intake frequency: holidays/special occasions only Alcohol type: wine substance use type: does not use caffeine: Yes (occasionally) EXAM Physical Exam Const Vital Signs: 03/26/24 17:59 03/26/24 18:03 03/26/24 18:07 Temperature 97.8 F 97.8 F Temperature Source Temporal Temporal Pulse Rate 66 66 Respiratory Rate 18 18 Respiratory Effort Normal Respiratory Depth Normal Respiratory Pattern Normal Blood Pressure 175/106 H 175/106 H Blood Pressure Mean 129 129 Pulse Ox 99 99 Oxygen Delivery Method Nasal Cannula Nasal Cannula Nasal Cannula Oxygen Flow Rate (L/min) 2 2 2 03/26/24 18:45 03/26/24 18:45 Temperature Temperature Source Pulse Rate 64 Respiratory Rate 16 Respiratory Effort Respiratory Depth Respiratory Pattern Normal Blood Pressure Blood Pressure Mean Pulse Ox 98 Oxygen Delivery Method Nasal Cannula Oxygen Flow Rate (L/min) 2 MDM MDM MDM Narrative Medical decision making narrative: HISTORY OF PRESENT ILLNESS: 58-year-old female presents with concern for allergic reaction. States he took meloxicam approximate 1 hour prior to arrival and she noted difficulty breathing. This is since resolved. She is concerned she may be having allergic reaction. Note she is history of COPD is on her baseline oxygen. REVIEW OF SYSTEMS: Pertinent positives: Difficulty breathing, allergic reaction Pertinent negatives: Vomiting, throat closure, difficulty swallowing, drooling PHYSICAL EXAM: Nursing triage notes reviewed, Vital signs reviewed Constitutional: please see mdm HENT: MMM, controlling secretions, no anterior posterior oropharyngeal swelling, uvula midline, no tonsillar erythema or edema Eyes: Pupils equal round and reactive to light, Extraocular muscles intact Neck: No stridor, no JVD, full neck ROM Lungs: Clear to auscultation, No wheezing or rales. No increased work of breathing, no conversational dyspnea, no accessory muscle use, no nasal flaring. No respiratory distress noted Heart: Regular rate and rhythm, No murmurs, No rubs and No gallops, 2+ distal pulses (radial, femoral, posterior tibial) in all extremities Abdomen: Soft, there is no tenderness, rigidity, rebound or guarding, no obvious peritoneal signs, no palpable pulsatile abdominal masses, no auscultated abdominal bruit : No CVAT Extremities: No edema Neuro: No focal neurological deficits, cranial nerves II through XII intact, 5/5 strength in all extremities. Intact sensation to light touch in all extremities, 2+ reflexes bilateral patella tendons. Normal gait. No ataxia. Skin: No rash or lesions noted MEDICAL DECISION MAKING: Chief Complaint: Allergic reaction External records reviewed: Chest x-ray reviewed from December 2023 shows stable right hemidiaphragm with no acute abnormalities Factors affecting care: COPD on home oxygen of 2 L, type 2 diabetes, GERD, allergic to vancomycin, amlodipine, cefazolin, fexofenadine, Macrobid, peanuts, sumatriptan, adhesive, amitriptyline, clindamycin, ziprasidone Social determinants of health: none History obtained from others: Patient's family Consults: none [facility] Narrative: [Patient was hemodynamically stable, afebrile and nontoxic-appearing saturating well on her home oxygen. No sign of drooling, airway compromise stridor. No indication for advanced airway at this time. I considered the following differential diagnosis: Anaphylactic shock, allergic reaction, pneumonia EKG with normal sinus rhythm, left ax deviation, normal levels, I treated the patient empirically for allergic reaction with histamine blockers. Observe the patient in the emergency department. No signs of anaphylaxis. No negation for emergent airway intervention as patient was controlling secretions had no signs of airway compromise stridor otherwise. After observation. Patient remained hemodynamically stable was comfortable and is appropriate for discharge home with instructions take Pepcid and Benadryl for the next 5 days and to refrain from using meloxicam. The patient and/or family, caregivers express understanding. The patient and/or family, caregivers agrees with the plan. Shared decision making: I will have a discussion with the patient and or visitors regarding risk/benefits of further testing or admission. They will be made aware of of the risk/benefits inherent in this decision they will be given the opportunity to voice understanding. Total critical care time today provided was at least 0. Meloxicam was added to allergy list. Minutes. This excludes separately billable procedures. Critical care time (if documented) is secondary to the patient having high probability of clinically significant/life threatening deterioration in the patient's condition which required my urgent intervention. Impression: 1. Allergic reaction 2. Allergy to meloxicam 3. History of COPD Dispo: Discharge home This note was generated with [employer] dictation software. It may contain incorrect words, spelling, and punctuation that were not noted in review of the chart prior to signing. Discharge Plan Triage Chief Complaint: Shortness of Breath ED Provider: Erwin Jackson Dx/Rx/DC Orders Instructions: ED ADVERSE DRUG REACTION Allergic Prescriptions: No Action omeprazole 40 mg capsule,delayed release(DR/EC) 40 mg PO DAILY oxybutynin chloride 10 mg tablet extended release 24hr 20 mg PO DAILY Invega Sustenna 117 mg/0.75 mL syringe 117 mg IM [id number] pregabalin 150 mg capsule 150 mg PO TID Patient Comments: take 1 capsule by mouth three times a day valacyclovir 500 mg tablet 500 mg PO DAILY Patient Comments: take 1 tablet by mouth once daily ergocalciferol (vitamin D2) [Vitamin D2] 1,250 mcg (50,000 unit) capsule 50,000 unit PO 2XW insulin lispro 100 unit/mL insulin pen See Rx Instructions subcut QAC Rx Instructions: 4 units + sliding scale subcutaneously before meals; bupropion HCl 300 MG tablet extended release 24 hr 450 mg PO DAILY Patient Comments: DEPRESSION albuterol sulfate 1 INHALER inhaler 2 puff INHALATION Q4H PRN PRN (Reason: Sob &/Or Wheezing) dicyclomine 10 MG capsule 20 mg PO TIDAC Qty: 20 0RF fluticasone propionate 1 SPRAY spray,suspension 2 spray NASAL DAILY escitalopram oxalate 10 MG tablet 20 mg PO DAILY tizanidine 4 MG capsule 4 mg PO BID PRN (Reason: Muscle Spasm) aspirin 81 MG tablet,chewable 81 mg PO DAILY@0800 0RF Lantus Solostar U-100 Insulin 100 unit/mL (3 mL) insulin pen 43 unit SUBCUT QHS trazodone 50 mg Tablet 150 mg PO QHS cetirizine [Zyrtec] 10 mg Tablet 10 mg PO DAILY lidocaine 4 % Cream 1 applic TOPICAL TID PRN (Reason: Pain) triamcinolone acetonide 0.1 % Cream 1 applic TOPICAL TID PRN (Reason: Rash) ketorolac 10 mg Tablet 10 mg PO Q6H PRN (Reason: SEVERE HEADACHE) primidone 250 mg Tablet 250 mg PO BID lorazepam [Ativan] 0.5 mg Tablet 0.5 - 1 mg PO BID PRN (Reason: Panic Attack(S)) hyoscyamine sulfate [Levsin] 0.125 mg Tablet 0.125 mg PO Q6H PRN (Reason: IBS) buspirone 10 mg Tablet 20 mg PO TID colchicine 0.6 mg Tablet 0.6 mg PO DAILY naratriptan [Amerge] 2.5 mg Tablet 2.5 mg PO Q4H PRN (Reason: Headache) hydroxyzine pamoate [Vistaril] 25 mg Capsule 25 - 75 mg PO BID PRN (Reason: Itching) guaifenesin [Mucinex] 600 mg Tablet Extended Release 12hr 1,200 mg PO BID PRN (Reason: Cough) lisinopril 20 MG tablet 10 mg PO BID fluticasone propion-salmeterol 500-50 mcg/dose blister with device 1 inh INHALATION BID lactulose 10 gram/15 mL solution 30 ml PO BID PRN (Reason: Constipation) promethazine 25 mg tablet 25 mg PO Q6H PRN (Reason: nausea and vomiting) 7 Days Qty: 28 0RF ondansetron 4 MG tablet 8 mg PO Q8H PRN PRN (Reason: Nausea) Qty: 20 0RF hydrocodone-acetaminophen 5-325 mg tablet 1 tab PO Q6H PRN (Reason: pain) glimepiride 2 mg tablet 4 mg PO BID Patient Comments: BLOOD SUGAR nadolol 80 mg tablet 80 mg PO BID Patient Comments: BLOOD PRESSURE Primary Care Provider: Cristal Wolf Referrals: Cristal Wolf MD [Primary Care Provider] - Activity Restrictions/Additional Instructions: Thank you for trusting us with your care today! Please take Tylenol (2 pills, 650 mg) every 6 hours as needed for pain and fever control. Please refrain from taking meloxicam. Please take oral Pepcid, Benadryl daily for the next 5 days to decrease risk of allergic reaction Please return to the emergency department if your symptoms change or worsen. Specifically develop drooling, stridor, difficulty breathing or feeling like your throat is closing. Please follow with your primary care physician for further outpatient evaluation and management. Disposition Disposition: Home, Self Care
--- NOTE | 2024-03-26 18:29 | EKG12_ITS ---
Test Reason : SOB Blood Pressure : / mmHG Vent. Rate : 064 BPM Atrial Rate : 064 BPM P-R Int : 164 ms QRS Dur : 104 ms QT Int : 404 ms P-R-T Axes : 043 000 -23 degrees QTc Int : 416 ms Normal sinus rhythm ST & T wave abnormality, consider anterior ischemia Abnormal ECG Confirmed by GINGER RIZO, VENU ([id number]), technical editor KM ALANIS ([id number]) on 03/28/2024 6:55:35 AM Referred By: LILA Confirmed By:VENU MILES MD
[2024-03-26 18:45] VITALS: PULSE 64; RESP 16; O2SAT 98
[2024-03-26] MEDS: Ipratropium/Albuterol Sulfate 3 ML AMPUL.NEB INHALATION ×2 (18:45→20:08)
[2024-03-26] MEDS: DiphenhydrAMINE 25 MG Capsule PO (18:59)
[2024-03-26] MEDS: Famotidine 20 MG Tablet PO (18:59)
[2024-03-26] MEDS: predniSONE 20 MG Tablet 40 MG PO (18:59)
[2024-03-26 20:08] VITALS: PULSE 68; RESP 20
[2024-03-26 20:21] VITALS: BP 160/91; PULSE 62; RESP 22; TEMP 36.4; O2SAT 97
== END 2024-03-26 20:25 | disposition home or self-care (01) ==
PROVIDERS: Emergency Provider Emergency Medicine; PCP Internal Medicine; Visit Provider Emergency Medicine
DX: R06.02 Shortness of breath (principal); F31.9 Bipolar disorder, unspecified; J44.9 Chronic obstructive pulmonary disease, unspecified; E11.9 Type 2 diabetes mellitus without complications; Z79.4 Long term (current) use of insulin; T39.395A Adverse effect of other nonsteroidal anti-inflammatory drugs [NSAID], initial encounter; K21.9 Gastro-esophageal reflux disease without esophagitis; I10 Essential (primary) hypertension; Z79.899 Other long term (current) drug therapy; Z79.84 Long term (current) use of oral hypoglycemic drugs; Z79.82 Long term (current) use of aspirin; J45.909 Unspecified asthma, uncomplicated; Z79.51 Long term (current) use of inhaled steroids; Z90.710 Acquired absence of both cervix and uterus
CPT/HCPCS: 93005; 94640; 99283

== ENCOUNTER 2024-04-17 13:45 | Outpatient (RCR) | payer MEDICAID, SELFPAY ==
[2024-04-03 13:19] VITALS: BP 196/96; PULSE 73; RESP 18; TEMP 36.6; BMI 51.5
--- NOTE | 2024-04-03 14:01 | PCM.WC.HP ---
History of Present Illness Date of Service: 04/03/24 Chief Complaint: Left anterior leg ulcer History of Wound: 4-year-old female with left leg wound secondary to trauma. Patient is diabetic controlled however she has elevated blood sugar secondary to bilateral ear infections. Progress of Wound: Ms. Donald is a 58-year-old diabetic female presenting to the wound care center today for chief complaint of left leg wound secondary to trauma. Patient presents today ambulating in regular acetic shoe gear. She is wearing a nasal cannula with provided oxygen. Patient states that she has had elevated blood sugar secondary to bilateral ear infections. She is seeing her primary doctor this week for treatment and antibiotics. She states that she hit the table and caused 2 wounds to the anterior and inferior lateral left leg. No treatment thus far. She denies constitutional symptoms or any other pedal complaints at this time. [facility] Medical History Diabetes PTSD (post-traumatic stress disorder) Depression Schizo affective schizophrenia Essential hypertension Chest pain Diabetes mellitus type 2, uncontrolled, with complications Back pain Asthma Knee pain Migraines Fatigue Hemorrhoids COPD (chronic obstructive pulmonary disease) Arthritis Pain syndrome, chronic Bipolar disorder Obstructive sleep apnea Stasis dermatitis of both legs Venous insufficiency of both lower extremities Super obese Open wound of left lower extremity GERD (gastroesophageal reflux disease) Benign hypertension ADHD (attention deficit hyperactivity disorder) Home Medications ?Medication ?Instructions ?Recorded ?Last Taken ?Type bupropion HCl 300 mg 24 hr tablet, 450 mg PO DAILY mental health 03/05/17 07/07/18 History extended release albuterol sulfate 90 mcg/actuation 2 puff inhalation Q4H PRN PRN Sob 05/29/18 07/07/18 History aerosol inhaler &/Or Wheezing glimepiride 2 mg tablet 4 mg PO BID diabetes 09/20/18 Unknown History dicyclomine 10 mg capsule 20 mg (2 x 10 mg) PO TIDAC #20 caps 07/28/19 Unknown Rx escitalopram oxalate 10 mg tablet 20 mg PO DAILY mental health 08/04/19 Unknown History fluticasone propionate 50 2 spray NASAL DAILY allergies 08/04/19 Unknown History mcg/actuation nasal spray,suspension tizanidine 4 mg capsule 4 mg PO BID PRN Muscle Spasm 07/15/20 Unknown History aspirin 81 mg chewable tablet 81 mg PO DAILY@0800 07/17/20 Unknown Rx nadolol 80 mg tablet 80 mg PO BID high blood pressure 07/08/21 Unknown History buspirone 10 mg tablet 20 mg PO TID 01/25/22 Unknown History cetirizine 10 mg tablet (Zyrtec) 10 mg PO DAILY 01/25/22 Unknown History colchicine 0.6 mg tablet 0.6 mg PO DAILY 01/25/22 Unknown History guaifenesin 600 mg tablet, 1,200 mg PO BID PRN Cough 01/25/22 Unknown History extended release 12 hr (Mucinex) hydroxyzine pamoate 25 mg capsule 25 - 75 mg PO BID PRN Itching 01/25/22 Unknown History (Vistaril) hyoscyamine sulfate 0.125 mg 0.125 mg PO Q6H PRN IBS 01/25/22 Unknown History tablet (Levsin) ketorolac 10 mg tablet 10 mg PO Q6H PRN SEVERE HEADACHE 01/25/22 Unknown History lidocaine 4 % topical cream 1 applic topical TID PRN Pain 01/25/22 Unknown History lisinopril 20 mg tablet 10 mg PO BID 01/25/22 Unknown History lorazepam 0.5 mg tablet (Ativan) 0.5 - 1 mg PO BID PRN Panic 01/25/22 Unknown History Attack(S) naratriptan 2.5 mg tablet (Amerge) 2.5 mg PO Q4H PRN Headache 01/25/22 Unknown History primidone 250 mg tablet 250 mg PO BID 01/25/22 Unknown History trazodone 50 mg tablet 150 mg PO QHS 01/25/22 Unknown History triamcinolone acetonide 0.1 % 1 applic topical TID PRN Rash 01/25/22 Unknown History topical cream fluticasone 500 mcg-salmeterol 50 1 inh inhalation BID 05/02/22 Unknown History mcg/dose blistr powdr for inhalation insulin glargine 100 unit/mL (3 43 unit subcut QHS 05/02/22 Unknown History mL) subcutaneous pen (Lantus Solostar U-100 Insulin) omeprazole 40 mg capsule,delayed 40 mg PO DAILY 05/02/22 Unknown History release oxybutynin chloride 10 mg 20 mg PO DAILY 05/02/22 Unknown History tablet,extended release 24 hr paliperidone palmitate 117 mg/0.75 117 mg IM [id number] 05/02/22 Unknown History mL intramuscular syringe (Invega Sustenna) ergocalciferol (vitamin D2) 1,250 50,000 unit PO 2XW 08/10/22 Unknown History mcg (50,000 unit) capsule (Vitamin D2) insulin lispro 100 unit/mL See Rx Instructions subcut QAC 08/10/22 Unknown History subcutaneous pen lactulose 10 gram/15 mL oral 30 ml PO BID PRN Constipation 08/10/22 Unknown History solution pregabalin 150 mg capsule 150 mg PO TID 08/10/22 Unknown History valacyclovir 500 mg tablet 500 mg PO DAILY 08/10/22 Unknown History ondansetron 4 mg disintegrating 8 mg (2 x 4 mg) PO Q8H PRN PRN 05/08/23 Unknown Rx tablet Nausea #20 tabs promethazine 25 mg tablet 25 mg PO Q6H PRN nausea and 05/10/23 Unknown Rx vomiting 7 days #28 tabs hydrocodone-acetaminophen 5-325mg 1 tab PO Q6H PRN pain 08/28/23 Unknown History 5mg-325mg Allergy/AdvReac Type Severity Reaction Status Date / Time meloxicam Allergy Severe Anaphylaxis Verified 04/03/24 13:23 vancomycin Allergy Severe BURNING Verified 01/17/24 11:26 RED RASH ON LEGGS amlodipine (From Norvasc) Allergy Swelling Verified 01/17/24 11:26 cefazolin sodium (From Ancef) Allergy Hives Verified 01/17/24 11:26 fexofenadine (From Nia) Allergy Shortness Verified 01/17/24 11:26 of breath nitrofurantoin (From Allergy Hives Verified 01/17/24 11:26 Macrobid) peanut Allergy Shortness Verified 01/17/24 11:26 of breath Penicillins Allergy Hives Verified 01/17/24 11:26 sumatriptan (From Imitrex) Allergy Shortness Verified 01/17/24 11:26 of breath adhesive AdvReac BURNING Verified 01/17/24 11:26 amitriptyline (From Elavil) AdvReac Other Verified 01/17/24 11:26 clindamycin AdvReac Diarrhea Verified 01/17/24 11:26 ziprasidone (From Geodon) AdvReac NEEDS Verified 01/17/24 11:26 FOLLOW-UP Family History Father CVA (cerebral vascular accident) Heart disease Mother Heart disease Surgical History History of elbow surgery (~06/2020) History of arthroscopic knee surgery History of left heart catheterization (07/16/20) Kidney stone H/O hernia repair Hx of hysterectomy Hx of section Social History household members: spouse Smoking Status: Never smoker alcohol intake: current alcohol intake frequency: holidays/special occasions only Alcohol type: wine substance use type: does not use caffeine: Yes (occasionally) Vital Signs Vital Signs Vital Signs: 04/03/24 13:19 Temperature 97.8 F Temperature Source Temporal Pulse Rate 73 Respiratory Rate 18 Blood Pressure 196/96 H Blood Pressure Mean 129 Blood Pressure Source Monitor Blood Pressure Position Semi-Fowlers Blood Pressure Location Left Arm Oxygen Delivery Method Nasal Cannula Oxygen Flow Rate (L/min) 2 Weight Weight: 140.614 kg Body Mass Index (BMI) 51.5 Physical Exam Narrative Vascular: DP and PT pulse are palpable. CFT is brisk to all digits of the left lower extremity. Nonpitting edema appreciated left lower extremity. Skin temperature great is warm to warm from proximal ankle to distal digit bilateral. No focal increase appreciated. Evidence of hemosiderin deposits bilateral. Neurological: Light touch intact. Protective station is absent. Dermatological: 2 full-thickness ulcerations to the anterior proximal and distal lateral aspect of the left lower extremity. Both wounds show evidence of 100% granular tissue with no evidence of fibrotic tissue. No active drainage. No probe to bone. No malodor. No sign of infection. The left proximal ulceration measures 0.9 x 0.6 x 0.1 cm. The left dorsal lateral ulceration measures 0.6 x 0.5 x 0.1 cm. Excisional debridement down to including subcutaneous tissue of the left proximal ulceration with a number 3 mm dermal curette without incident. Predebridement measurement is sanguinous crust. Postdebridement measurement is 0.9 x 0.6 x 0.1 cm. Excisional debridement down to including subcutaneous tissue of the left distal lateral ulceration with a number 3 mm dermal curette without incident. Predominant measurement is sanguinous crust. Postdebridement measurement is 0.6 x 0.5 x 0.1 cm. Musculoskeletal: The strength is 5 of 5 in all quads bilateral. No pain on palpation to the left full-thickness ulceration. No pain with calf compression. Debridement Note Debridement Note Debridement Free Text: Excisional debridement down to including subcutaneous tissue of the left proximal ulceration with a number 3 mm dermal curette without incident. Predebridement measurement is sanguinous crust. Postdebridement measurement is 0.9 x 0.6 x 0.1 cm. Excisional debridement down to including subcutaneous tissue of the left distal lateral ulceration with a number 3 mm dermal curette without incident. Predominant measurement is sanguinous crust. Postdebridement measurement is 0.6 x 0.5 x 0.1 cm. Post-Debridement Measurements and Additional Note: Post-Debridement Measurements/Treatment WC - Nurse 1 - General Ulcer Assessment Start: 04/03/24 13:19 Freq: Status: Active Protocol: PERRY Activity Type Activity Date Activity User E-sign Co-sign Detail Recorded Client Recorded Date Recorded By Document 04/03/24 13:19 [id number] 04/03/24 13:34 04/03/24 13:19 WC - Today's Visit Information Type of service Initial Visit Arrival Mode Ambulatory Patient Identification Verified (Name & Yes ) Finger Stick Blood Sugar(mg/dl) (if 175 indicated): Blood Sugar Stated by Patient Height and Weight Height 5 ft 5 in Weight 140.614 kg Weight in Pounds 310.0 lbs Weight Measurement Method Estimated by Patient Body Mass Index (BMI) 51.5 BMI Classification Obese BSA - Annette 2.38 Vital Signs Temperature (97.8 F-99.1 F) 97.8 F Temperature Source Temporal Pulse Rate (60-100) 73 Pulse Location Monitor Respiratory Rate (12-18) 18 Respiratory rate source Observation Oxygen Delivery Method Nasal Cannula O2 L/MIN 2 Blood Pressure (90/60-120/80) 196/96 H Blood Pressure Mean 129 Source Monitor Position Semi-Fowlers Blood Pressure Location Left Arm History Since Last Visit- (Skip if this is Patient's initial visit) Left Footwear Regular Shoe Right Footwear Regular Shoe Pain Scale: 0-10 Numeric Is Patient Pain Free? Yes BLE -Description Throbbing -Intensity 3 -Alleviating Factors/Interventions Medication, Inactivity/ Resting Communication Assessment Preferred language Vietnamese Able to Read Yes Able to Write Yes Caregiver Communication Skills No Impairment Impairment Right Hearing Abillity Normal Left Hearing Abillity Normal Visual Assistive Devices Glasses Functional Assessment Recent Decline in Ability to Perform Bathing,Lower Body Dressing Culture/Mu-Ism/Prepared Foods Service Team Member Cultural/Mu-Ism Needs that may affect No Treatment Plan Would you allow our hospital quality assurance intern to No meet you for the purpose of spiritual/ emotional support? Prepared Foods Service Team Member to contact place of orthodoxy No WC - Nurse 1 - General Ulcer Measurement Start: 04/03/24 13:19 Freq: Status: Active Protocol: Activity Type Activity Date Activity User E-sign Co-sign Detail Recorded Client Recorded Date Recorded By Document 04/03/24 13:19 [id number] 04/03/24 13:34 KW 04/03/24 13:19 Wound Center Nurse 1 #13 LT LAT LE -Current Size (cm) - Length 0.8 -Current Size (cm) - Width 0.5 -Current Size (cm) - Depth 0.1 -Total Square Cm 0.40 -Date of Last Picture (Recall this 04/03/24 field) -Exudate Amt Small -Exudate Type Serosanguineous -Wound Margin Distinct, Outline Attached -Granulation Amt Large (67-100%) -Granulation Quality Red -Texture (Verónica-wound Skin Appearance) Assessed -Moisture (Verónica-wound Skin Appearance) Assessed,Dry/ Scaly -Color (Verónica-wound Skin Appearance) Assessed -Temperature (Verónica-wound Skin No Abnormality Appearance) (Pt Warm) -Tenderness on Palpation (Verónica-wound No Skin Appearance) -Ulcer Cleansing Rinsed/ Irrigated with Saline -Foul Odor after Cleansing No -Anesthetic Used 5% Lidocaine Gel #12 LT TORRES proximal -Current Size (cm) - Length 1.1 -Current Size (cm) - Width 0.8 -Current Size (cm) - Depth 0.1 -Total Square Cm 0.88 -Date of Last Picture (Recall this 04/03/24 field) -Granulation Amt Large (67-100%) -Granulation Quality Red -Texture (Verónica-wound Skin Appearance) Assessed, Scarring -Moisture (Verónica-wound Skin Appearance) Assessed,Dry/ Scaly -Color (Verónica-wound Skin Appearance) Assessed -Temperature (Verónica-wound Skin No Abnormality Appearance) (Pt Warm) -Tenderness on Palpation (Verónica-wound No Skin Appearance) -Ulcer Cleansing Rinsed/ Irrigated with Saline -Foul Odor after Cleansing No -Anesthetic Used 5% Lidocaine Gel Right Calf (cm) 52.5 Right Ankle (cm) 23.6 Left Calf (cm) 51.5 Left Ankle (cm) 23.4 WC - Nurse 2 - General Ulcer CM Notes Start: 04/03/24 13:19 Freq: Status: Active Protocol: Activity Type Activity Date Activity User E-sign Co-sign Detail Recorded Client Recorded Date Recorded By Document 04/03/24 13:42 DS [id number] 04/03/24 13:44 DS 04/03/24 13:42 Wound Center Nurse 2 #13 LT LAT LE -Time 13:44 -Correct Patient Yes -Correct Side, Site, Position Yes -Correct Procedure Yes -Procedure Performed Yes -Type of Procedure Debridement -Clinical Debridement Subcutaneous -Tissue Removed Subcutaneous -Post Debridement (cm) - Length 0.6 -Post Debridement (cm) - Width 0.5 -Post Debridement (cm) - Depth 0.1 -Total Square (Post) (cm) 0.30 -Area of Debridement (cm) - Length 0.6 -Area of Debridement (cm) - Width 0.5 -Total Square (Area) (cm) 0.30 -Tunneling No -Undermining/Tunneling No -Circular Undermining No -Wound/Ulcer Outcome Not Healed -Ulcer Cleansing Rinsed/ Irrigated with Saline -Bleeding Controlled with Pressure -Treatment Response Procedure Tolerated Well -Debridement - Subq, 1st 20sq cm No #12 LT TORRES proximal -Time 13:43 -Correct Patient Yes -Correct Side, Site, Position Yes -Correct Procedure Yes -Procedure Performed Yes -Type of Procedure Debridement -Clinical Debridement Subcutaneous -Tissue Removed Subcutaneous -Post Debridement (cm) - Length 0.9 -Post Debridement (cm) - Width 0.6 -Post Debridement (cm) - Depth 0.1 -Total Square (Post) (cm) 0.54 -Area of Debridement (cm) - Length 0.9 -Area of Debridement (cm) - Width 0.6 -Total Square (Area) (cm) 0.54 -Tunneling No -Undermining/Tunneling No -Circular Undermining No -Wound/Ulcer Outcome Not Healed -Ulcer Cleansing Rinsed/ Irrigated with Saline -Bleeding Controlled with Pressure -Debridement - Subq, 1st 20sq cm Yes Pain Scale: 0-10 Numeric Is Patient Pain Free? Yes WC - Nurse 3 - General Ulcer D/C NN Start: 04/03/24 13:19 Freq: Status: Active Protocol: Activity Type Activity Date Activity User E-sign Co-sign Detail Recorded Client Recorded Date Recorded By Document 04/03/24 13:53 DL [id number] 04/03/24 13:57 DL 04/03/24 13:53 Wound Care Center Nurse 3 #13 LT LAT LE -Ulcer Cleansing Rinsed/ Irrigated with Saline -Foul Odor after Cleansing No -Primary Dressing Applied Mepilex Border, Promogran Barney Matter -Mepilex Border 1 -Promogran Barney Matter 1 #12 LT TORRES proximal -Ulcer Cleansing Rinsed/ Irrigated with Saline -Foul Odor after Cleansing No -Primary Dressing Applied Mepilex Border -Other Dressing barney -Mepilex Border 1 joseph -Tubular Bandage Double Layer -Size of Tubigrip Used Size E -Size E ($) 2 Treatment Response Procedure Tolerated Well Pain Scale: 0-10 Numeric Is Patient Pain Free? Yes WC - Visit Discharge Discharge Condition Stable Ambulatory Status Ambulatory Transportation Private Auto Assessment/Plan Assessment/Plan (1) Non-pressure chronic ulcer of other part of left lower leg with fat layer exposed: CODE(S): L97.822 - Non-pressure chronic ulcer of other part of left lower leg with fat layer exposed PLAN: Patient was examined and evaluated. All findings were discussed with the patient. All questions were answered to the patient's satisfaction. Excisional debridement down to including subcutaneous tissue of the left proximal ulceration with a number 3 mm dermal curette without incident. Predebridement measurement is sanguinous crust. Postdebridement measurement is 0.9 x 0.6 x 0.1 cm. Excisional debridement down to including subcutaneous tissue of the left distal lateral ulceration with a number 3 mm dermal curette without incident. Predominant measurement is sanguinous crust. Postdebridement measurement is 0.6 x 0.5 x 0.1 cm. Left lower extremities were cleaned and patted dry. Moist Barney was applied to both ulcerations followed by a Tubigrip. Patient will change dressing every 2 days. She will continue to strive for strict blood sugar control after treating her ear infection. Follow-up at the wound care center with Dr. Lewis in 1 week. (2) Other specified peripheral vascular diseases: CODE(S): I73.89 - Other specified peripheral vascular diseases (3) Chronic painful diabetic polyneuropathy: CODE(S): E11.42 - Type 2 diabetes mellitus with diabetic polyneuropathy
--- NOTE | 2024-04-04 11:08 | WC ---
04/03/2024 (I) LEFT LATERAL LOWER EXT.
[2024-04-10 13:29] VITALS: BP 149/90; PULSE 90; RESP 18; TEMP 35.9; BMI 51.5
--- NOTE | 2024-04-10 14:33 | PN.PCM_ITS ---
History of Present Illness Date of Service: 04/10/24 Chief Complaint: Left anterior leg ulcer History of Wound: 4-year-old female with left leg wound secondary to trauma. Patient is diabetic controlled however she has elevated blood sugar secondary to bilateral ear infections. Progress of Wound: Ms. Donald is a 58-year-old diabetic female presenting to the wound care center today for chief complaint of left leg wound secondary to trauma. Patient presents today ambulating in regular acetic shoe gear. She is wearing a nasal cannula with provided oxygen. Patient states that she has had elevated blood sugar secondary to bilateral ear infections. She is seeing her primary doctor this week for treatment and antibiotics. She states that she hit the table and caused 2 wounds to the anterior and inferior lateral left leg. No treatment thus far. She denies constitutional symptoms or any other pedal complaints at this time. Subjective Subjective Mrs. Lnag is a 58-year-old diabetic female presenting to the wound care center today for follow-up and evaluation of left leg full-thickness ulceration. Patient has been compliant with dressing changes. She states improvement to her wounds. She is currently on nasal cannula oxygen. She admits to regulated blood sugar. She denies trauma. Denies constitutional symptoms. No other pedal complaints at this time. Objective Data Objective Data Vital Signs: Vital Signs Temp Pulse Resp BP O2 Del Method O2 Flow Rate 96.7 F L 90 18 149/90 H Nasal Cannula 2 04/10/24 13:29 04/10/24 13:29 04/10/24 13:29 04/10/24 13:29 04/10/24 13:29 04/10/24 13:29 Oxygen Flow Rate (L/min) 2 Oxygen Delivery Method Nasal Cannula Weight: 140.614 kg Body Mass Index (BMI) 51.5 Physical Exam Narrative Vascular: DP and PT pulse are palpable. CFT is brisk to all digits of the left lower extremity. Nonpitting edema appreciated left lower extremity. Skin temperature great is warm to warm from proximal ankle to distal digit bilateral. No focal increase appreciated. Evidence of hemosiderin deposits bilateral. Neurological: Light touch intact. Protective station is absent. Dermatological: 2 full-thickness ulcerations to the anterior proximal and distal lateral aspect of the left lower extremity. Both wounds show evidence of 100% granular tissue with no evidence of fibrotic tissue. No active drainage. No probe to bone. No malodor. No sign of infection. The left proximal ulceration measures 1.2 x 0.4 x 0.1 cm. The left dorsal lateral ulceration measures 0.5 x 0.3 x 0.1 cm. Excisional debridement down to including subcutaneous tissue of the left proximal ulceration with a number 3 mm dermal curette without incident. Predebridement measurement is 1.0 x 0.3 x 0.1 cm. Postdebridement measurement is 1.2 x 0.4 x 0.1 cm. Excisional debridement down to including subcutaneous tissue of the left distal lateral ulceration with a number 3 mm dermal curette without incident. Predominant measurement is 0.4 x 0.2 x 0.1 cm. Postdebridement measurement is 0.5x 0.3 x 0.1 cm. Musculoskeletal: The strength is 5 of 5 in all quads bilateral. No pain on palpation to the left full-thickness ulceration. No pain with calf compression. Debridement Note Debridement Note Debridement Free Text: Excisional debridement down to including subcutaneous tissue of the left proximal ulceration with a number 3 mm dermal curette without incident. Predebridement measurement is 1.0 x 0.3 x 0.1 cm. Postdebridement measurement is 1.2 x 0.4 x 0.1 cm. Excisional debridement down to including subcutaneous tissue of the left distal lateral ulceration with a number 3 mm dermal curette without incident. Predominant measurement is 0.4 x 0.2 x 0.1 cm. Postdebridement measurement is 0.5x 0.3 x 0.1 cm. Post-Debridement Measurements and Additional Note: Post-Debridement Measurements/Treatment - Nurse 1 - General Ulcer Assessment Start: 04/03/24 13:19 Freq: Status: Active Protocol: WC.STEVEN Activity Type Activity Date Activity User E-sign Co-sign Detail Recorded Client Recorded Date Recorded By Document 04/03/24 13:19 KW [id number] 04/03/24 13:34 KW Document 04/10/24 13:29 KW wound center 04/10/24 13:38 KW 04/03/24 04/10/24 13:19 13:29 - Today's Visit Information Type of service Initial Visit Follow-up Visit (Physician/COOPERATIVE MANAGER ) Arrival Mode Ambulatory Ambulatory Patient Identification Verified (Name & Yes Yes ) Finger Stick Blood Sugar(mg/dl) (if 175 indicated): Blood Sugar Stated by Patient Height and Weight Height 5 ft 5 in Weight 140.614 kg Weight in Pounds 310.0 lbs Weight Measurement Method Estimated by Patient Body Mass Index (BMI) 51.5 51.5 BMI Classification Obese Obese BSA - Annette 2.38 Vital Signs Temperature (97.8 F-99.1 F) 97.8 F 96.7 F L Temperature Source Temporal Temporal Pulse Rate (60-100) 73 90 Pulse Location Monitor Respiratory Rate (12-18) 18 18 Respiratory rate source Observation Observation Oxygen Delivery Method Nasal Cannula Nasal Cannula O2 L/MIN (L/min) 2 2 Blood Pressure (90/60-120/80) 196/96 H 149/90 H Blood Pressure Mean (mm Hg) 129 109 Source Monitor Monitor Position Semi-Fowlers Sitting Blood Pressure Location Left Arm Left Arm History Since Last Visit- (Skip if this is Patient's initial visit) Have you changed medications since your No last visit? Any new allergies or adverse reactions No Had a fall/change in ADL's that may No increase risk of falls Signs or symptoms of abuse and/or No neglect since last visit Have you been in the hospital since your No last visit? Has dressing in place as prescribed Yes Has compression in place as prescribed N/A Has offloadiing in place as prescribed N/A Experienced any changes in pain level or No management Left Footwear Regular Shoe Regular Shoe Right Footwear Regular Shoe Regular Shoe Pain Scale: 0-10 Numeric Is Patient Pain Free? 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 Senior Product Engineer to contact place of temple No WC - Nurse 1 - General Ulcer Measurement Start: 04/03/24 13:19 Freq: Status: Active Protocol: Activity Type Activity Date Activity User E-sign Co-sign Detail Recorded Client Recorded Date Recorded By Document 04/03/24 13:19 KW [id number] 04/03/24 13:34 KW Document 04/10/24 13:29 KW wound center 04/10/24 13:38 KW 04/03/24 04/10/24 13:19 13:29 Wound Center Nurse 1 #13 LT LAT LE -Current Size (cm) - Length 0.8 0.5 -Current Size (cm) - Width 0.5 0.3 -Current Size (cm) - Depth 0.1 0.1 -Total Square Cm 0.40 0.15 -Date of Last Picture (Recall this 04/03/24 field) -Exudate Amt Small Small -Exudate Type Serosanguineous Serosanguineous -Wound Margin Distinct, Distinct, Outline Outline Attached Attached -Granulation Amt Large (67-100%) Large (67-100%) -Granulation Quality Red Red -Texture (Verónica-wound Skin Appearance) Assessed Assessed -Moisture (Verónica-wound Skin Appearance) Assessed,Dry/ Assessed Scaly -Color (Verónica-wound Skin Appearance) Assessed Assessed -Temperature (Verónica-wound Skin No Abnormality No Abnormality Appearance) (Pt Warm) (Pt Warm) -Tenderness on Palpation (Verónica-wound No No Skin Appearance) -Ulcer Cleansing Rinsed/ Rinsed/ Irrigated with Irrigated with Saline Saline -Foul Odor after Cleansing No No -Anesthetic Used 5% Lidocaine 5% Lidocaine Gel Gel #12 LT TORRES proximal -Current Size (cm) - Length 1.1 0.9 -Current Size (cm) - Width 0.8 0.6 -Current Size (cm) - Depth 0.1 0.1 -Total Square Cm 0.88 0.54 -Date of Last Picture (Recall this 04/03/24 field) -Exudate Amt Small -Exudate Type Serosanguineous -Wound Margin Distinct, Outline Attached -Granulation Amt Large (67-100%) Large (67-100%) -Granulation Quality Red Red -Necrosis Amt Small (1-33%) -Necrotic Tissue Type Adherent Slough -Texture (Verónica-wound Skin Appearance) Assessed, Assessed Scarring -Moisture (Verónica-wound Skin Appearance) Assessed,Dry/ Assessed Scaly -Color (Verónica-wound Skin Appearance) Assessed Assessed -Temperature (Verónica-wound Skin No Abnormality No Abnormality Appearance) (Pt Warm) (Pt Warm) -Tenderness on Palpation (Verónica-wound No No Skin Appearance) -Ulcer Cleansing Rinsed/ Rinsed/ Irrigated with Irrigated with Saline Saline -Foul Odor after Cleansing No No -Anesthetic Used 5% Lidocaine 5% Lidocaine Gel Gel Right Calf (cm) 52.5 Right Ankle (cm) 23.6 Left Calf (cm) 51.5 52.5 Left Ankle (cm) 23.4 24.5 WC - Nurse 2 - General Ulcer CM Notes Start: 04/03/24 13:19 Freq: Status: Active Protocol: Activity Type Activity Date Activity User E-sign Co-sign Detail Recorded Client Recorded Date Recorded By Document 04/03/24 13:42 [place] [id number] 04/03/24 13:44 DS Document 04/10/24 14:06 [id number] 04/10/24 14:08 JF 04/03/24 04/10/24 13:42 14:06 Wound Center Nurse 2 #13 LT LAT LE -Time 13:44 14:06 -Correct Patient Yes Yes -Correct Side, Site, Position Yes Yes -Correct Procedure Yes Yes -Procedure Performed Yes Yes -Type of Procedure Debridement Debridement -Clinical Debridement Subcutaneous Subcutaneous -Tissue Removed Subcutaneous Subcutaneous -Post Debridement (cm) - Length 0.6 0.5 -Post Debridement (cm) - Width 0.5 0.3 -Post Debridement (cm) - Depth 0.1 0.1 -Total Square (Post) (cm) 0.30 0.15 -Area of Debridement (cm) - Length 0.6 0.5 -Area of Debridement (cm) - Width 0.5 0.3 -Total Square (Area) (cm) 0.30 0.15 -Tunneling No No -Undermining/Tunneling No No -Circular Undermining No No -Wound/Ulcer Outcome Not Healed Not Healed -Ulcer Cleansing Rinsed/ Rinsed/ Irrigated with Irrigated with Saline Saline -Foul Odor after Cleansing No -Bioengineered Tissue No -Bleeding Controlled with Pressure Pressure -Treatment Response Procedure Procedure Tolerated Well Tolerated Well -Offloading No -Debridement - Subq, 1st 20sq cm No No #12 LT TORRES proximal -Time 13:43 14:07 -Correct Patient Yes Yes -Correct Side, Site, Position Yes Yes -Correct Procedure Yes Yes -Procedure Performed Yes Yes -Type of Procedure Debridement Debridement -Clinical Debridement Subcutaneous Subcutaneous -Tissue Removed Subcutaneous Subcutaneous -Post Debridement (cm) - Length 0.9 1.2 -Post Debridement (cm) - Width 0.6 0.4 -Post Debridement (cm) - Depth 0.1 0.1 -Total Square (Post) (cm) 0.54 0.48 -Area of Debridement (cm) - Length 0.9 1.2 -Area of Debridement (cm) - Width 0.6 0.4 -Total Square (Area) (cm) 0.54 0.48 -Tunneling No No -Undermining/Tunneling No No -Circular Undermining No No -Wound/Ulcer Outcome Not Healed Not Healed -Ulcer Cleansing Rinsed/ Rinsed/ Irrigated with Irrigated with Saline Saline -Foul Odor after Cleansing No -Bioengineered Tissue No -Bleeding Controlled with Pressure Pressure -Treatment Response Procedure Tolerated Well -Offloading No -Debridement - Subq, 1st 20sq cm Yes Yes Pain Scale: 0-10 Numeric Is Patient Pain Free? Yes Yes - Nurse 3 - General Ulcer D/C NN Start: 04/03/24 13:19 Freq: Status: Active Protocol: Activity Type Activity Date Activity User E-sign Co-sign Detail Recorded Client Recorded Date Recorded By Document 04/03/24 13:53 DL [id number] 04/03/24 13:57 DL Document 04/10/24 14:17 KW wound center 04/10/24 14:18 KW 04/03/24 04/10/24 13:53 14:17 Wound Care Center Nurse 3 #13 LT LAT LE -Ulcer Cleansing Rinsed/ Rinsed/ Irrigated with Irrigated with Saline Saline -Foul Odor after Cleansing No -Primary Dressing Applied Mepilex Border, Mepilex Border, Promogran Promogran Barney Matter Barney Matter -Mepilex Border 1 1 -Promogran Barney Matter 1 1 #12 LT TORRES proximal -Ulcer Cleansing Rinsed/ Irrigated with Saline -Foul Odor after Cleansing No -Primary Dressing Applied Mepilex Border Mepilex Border -Other Dressing barney barney -Mepilex Border 1 1 Left -Tubular Bandage Double Layer -Size of Tubigrip Used Size E -Size E ($) 2 joseph -Tubular Bandage Double Layer -Size of Tubigrip Used Size E -Size E ($) 2 Treatment Response Procedure Tolerated Well Pain Scale: 0-10 Numeric Is Patient Pain Free? Yes Yes WC - Visit Discharge Discharge Condition Stable Stable Ambulatory Status Ambulatory Ambulatory Transportation Private Auto Private Auto Medication Reconcilliation completed & No provided to patient/care provider Clinical Summary of Care Provided Yes Assessment/Plan Assessment/Plan (1) Non-pressure chronic ulcer of other part of left lower leg with fat layer exposed: CODE(S): L97.822 - Non-pressure chronic ulcer of other part of left lower leg with fat layer exposed PLAN: Patient was examined and evaluated. All findings were discussed with the patient. All questions were answered to the patient's satisfaction. Excisional debridement down to including subcutaneous tissue of the left proximal ulceration with a number 3 mm dermal curette without incident. Predebridement measurement is 1.0 x 0.3 x 0.1 cm. Postdebridement measurement is 1.2 x 0.4 x 0.1 cm. Excisional debridement down to including subcutaneous tissue of the left distal lateral ulceration with a number 3 mm dermal curette without incident. Predominant measurement is 0.4 x 0.2 x 0.1 cm. Postdebridement measurement is 0 .5x 0.3 x 0.1 cm. Left lower extremities were cleaned and patted dry. The area was dressed with moist Barney, dry sterile dressing and a double layer Tubigrip. Follow-up at the wound care center with Dr. Lewis in 1 week. (2) Other specified peripheral vascular diseases: CODE(S): I73.89 - Other specified peripheral vascular diseases
[2024-04-17 13:49] VITALS: BP 167/87; PULSE 74; RESP 20; TEMP 36.5; BMI 51.5
--- NOTE | 2024-04-17 16:36 | PN.PCM_ITS ---
History of Present Illness Date of Service: 04/17/24 Chief Complaint: Left anterior leg ulcer History of Wound: 4-year-old female with left leg wound secondary to trauma. Patient is diabetic controlled however she has elevated blood sugar secondary to bilateral ear infections. Progress of Wound: Ms. Donald is a 58-year-old diabetic female presenting to the wound care center today for chief complaint of left leg wound secondary to trauma. Patient presents today ambulating in regular acetic shoe gear. She is wearing a nasal cannula with provided oxygen. Patient states that she has had elevated blood sugar secondary to bilateral ear infections. She is seeing her primary doctor this week for treatment and antibiotics. She states that she hit the table and caused 2 wounds to the anterior and inferior lateral left leg. No treatment thus far. She denies constitutional symptoms or any other pedal complaints at this time. Subjective Subjective Mrs. Lang is a 58-year-old diabetic female presenting to the wound care center today for follow-up and evaluation of left leg full-thickness ulceration. Patient has been compliant with dressing changes. She states improvement to her wounds. She is currently on nasal cannula oxygen. She admits to regulated blood sugar. She denies trauma. Denies constitutional symptoms. No other pedal complaints at this time. Objective Data Objective Data Vital Signs: Vital Signs Temp Pulse Resp BP O2 Del Method O2 Flow Rate 97.7 F L 74 20 H 167/87 H Nasal Cannula 2 04/17/24 13:49 04/17/24 13:49 04/17/24 13:49 04/17/24 13:49 04/10/24 13:29 04/10/24 13:29 Oxygen Flow Rate (L/min) 2 Oxygen Delivery Method Nasal Cannula Weight: 140.614 kg Body Mass Index (BMI) 51.5 Physical Exam Narrative Vascular: DP and PT pulse are palpable. CFT is brisk to all digits of the left lower extremity. Nonpitting edema appreciated left lower extremity. Skin temperature great is warm to warm from proximal ankle to distal digit bilateral. No focal increase appreciated. Evidence of hemosiderin deposits bilateral. Neurological: Light touch intact. Protective station is absent. Dermatological: 2 full-thickness ulcerations to the anterior proximal and distal lateral aspect of the left lower extremity. Both wounds show evidence of 100% granular tissue with no evidence of fibrotic tissue. No active drainage. No probe to bone. No malodor. No sign of infection. The left proximal ulceration measures 0.8 x 0.4 x 0.2 cm. The left dorsal lateral ulceration measures 0.4 x 0.2 x 0.1 cm. Excisional debridement down to including subcutaneous tissue of the left proximal ulceration with a number 3 mm dermal curette without incident. Predebridement measurement is 0.7 x 0.3 x 0.1 cm. Postdebridement measurement is 0.8 x 0.4 x 0.2 cm. Excisional debridement down to including subcutaneous tissue of the left distal lateral ulceration with a number 3 mm dermal curette without incident. Predominant measurement is 0.3 x 0.1 x 0.1 cm. Postdebridement measurement is 0.4x 0.2 x 0.1 cm. Musculoskeletal: The strength is 5 of 5 in all quads bilateral. No pain on palpation to the left full-thickness ulceration. No pain with calf compression. Debridement Note Debridement Note Debridement Free Text: Excisional debridement down to including subcutaneous tissue of the left proximal ulceration with a number 3 mm dermal curette without incident. Predebridement measurement is 0.7 x 0.3 x 0.1 cm. Postdebridement measurement is 0.8 x 0.4 x 0.2 cm. Excisional debridement down to including subcutaneous tissue of the left distal lateral ulceration with a number 3 mm dermal curette without incident. Predominant measurement is 0.3 x 0.1 x 0.1 cm. Postdebridement measurement is 0.4x 0.2 x 0.1 cm. Post-Debridement Measurements and Additional Note: Post-Debridement Measurements/Treatment - Nurse 1 - General Ulcer Assessment Start: 04/03/24 13:19 Freq: Status: Active Protocol: [email or web address] Activity Type Activity Date Activity User E-sign Co-sign Detail Recorded Client Recorded Date Recorded By Document 04/03/24 13:19 KW [id number] 04/03/24 13:34 KW Document 04/10/24 13:29 KW wound center 04/10/24 13:38 KW Document 04/17/24 13:49 DL [email or web address] 04/17/24 13:54 DL 04/03/24 04/10/24 04/17/24 13:19 13:29 13:49 - Today's Visit Information Type of service Initial Visit Follow-up Visit Follow-up Visit (Physician/ELECTRONIC EQUIPMENT SET UP OPERATOR (Physician/ELECTRONIC EQUIPMENT SET UP OPERATOR ) ) Arrival Mode Ambulatory Ambulatory Ambulatory Transfer Assistance None Patient Identification Verified (Name & Yes Yes Yes ) Patient Requires Transmission-Based No Precautions Finger Stick Blood Sugar(mg/dl) (if 175 168 indicated): Blood Sugar Stated by Stated by Patient Patient Height and Weight Height 5 ft 5 in Weight 140.614 kg Weight in Pounds 310.0 lbs Weight Measurement Method Estimated by Patient Body Mass Index (BMI) 51.5 51.5 51.5 BMI Classification Obese Obese Obese BSA - Annette 2.38 Vital Signs Temperature (97.8 F-99.1 F) 97.8 F 96.7 F L 97.7 F L Temperature Source Temporal Temporal Temporal Pulse Rate (60-100) 73 90 74 Pulse Location Monitor Monitor Respiratory Rate (12-18) 18 18 20 H Respiratory rate source Observation Observation Observation Oxygen Delivery Method Nasal Cannula Nasal Cannula O2 L/MIN (L/min) 2 2 Blood Pressure (90/60-120/80) 196/96 H 149/90 H 167/87 H Blood Pressure Mean (mm Hg) 129 109 113 Source Monitor Monitor Monitor Position Semi-Fowlers Sitting Blood Pressure Location Left Arm Left Arm History Since Last Visit- (Skip if this is Patient's initial visit) Have you changed medications since your No No last visit? Any new allergies or adverse reactions No No Had a fall/change in ADL's that may No No increase risk of falls Signs or symptoms of abuse and/or No No neglect since last visit Have you been in the hospital since your No No last visit? Has dressing in place as prescribed Yes Yes Has compression in place as prescribed N/A Yes Has offloadiing in place as prescribed N/A N/A Experienced any changes in pain level or No Yes management Left Footwear Regular Shoe Regular Shoe Right Footwear Regular Shoe Regular Shoe Pain Scale: 0-10 Numeric Is Patient Pain Free? Yes Yes Yes BLE -Description Throbbing -Intensity 3 -Alleviating Factors/Interventions Medication, Inactivity/ Resting Communication Assessment Preferred language Moroccan Able to Read Yes Able to Write Yes Caregiver Communication Skills No Impairment Impairment Right Hearing Abillity Normal Left Hearing Abillity Normal Visual Assistive Devices Glasses Functional Assessment Recent Decline in Ability to Perform Bathing,Lower Body Dressing Culture/Gnosticism/[employer] Cultural/Gnosticism Needs that may affect No Treatment Plan Would you allow our hospital turf manager to No meet you for the purpose of spiritual/ emotional support? [employer] to contact place of jewish No WC - Nurse 1 - General Ulcer Measurement Start: 04/03/24 13:19 Freq: Status: Active Protocol: Activity Type Activity Date Activity User E-sign Co-sign Detail Recorded Client Recorded Date Recorded By Document 04/03/24 13:19 KW [id number] 04/03/24 13:34 KW Document 04/10/24 13:29 KW wound center 04/10/24 13:38 KW Document 04/17/24 13:49 DL [id number] 04/17/24 13:54 DL 04/03/24 04/10/24 04/17/24 13:19 13:29 13:49 Wound Center Nurse 1 #13 LT LAT LE -Current Size (cm) - Length 0.8 0.5 0.1 -Current Size (cm) - Width 0.5 0.3 0.1 -Current Size (cm) - Depth 0.1 0.1 0.1 -Total Square Cm 0.40 0.15 0.01 -Date of Last Picture (Recall this 04/03/24 field) -Exudate Amt Small Small None Present -Exudate Type Serosanguineous Serosanguineous -Wound Margin Distinct, Distinct, Distinct, Outline Outline Outline Attached Attached Attached -Granulation Amt Large (67-100%) Large (67-100%) Small (1-33%) -Granulation Quality Red Red [place] -Necrosis Amt None Present (0 %) -Structure Exposed N/A -Texture (Verónica-wound Skin Appearance) Assessed Assessed Scarring -Moisture (Verónica-wound Skin Appearance) Assessed,Dry/ Assessed Dry/Scaly Scaly -Color (Verónica-wound Skin Appearance) Assessed Assessed Hemosiderin Staining -Temperature (Verónica-wound Skin No Abnormality No Abnormality No Abnormality Appearance) (Pt Warm) (Pt Warm) (Pt Warm) -Tenderness on Palpation (Verónica-wound No No No Skin Appearance) -Ulcer Cleansing Rinsed/ Rinsed/ Soap and Water Irrigated with Irrigated with Saline Saline -Foul Odor after Cleansing No No No -Anesthetic Used 5% Lidocaine 5% Lidocaine 5% Lidocaine Gel Gel Gel #12 LT TORRES proximal -Current Size (cm) - Length 1.1 0.9 0.4 -Current Size (cm) - Width 0.8 0.6 0.2 -Current Size (cm) - Depth 0.1 0.1 0.1 -Total Square Cm 0.88 0.54 0.08 -Date of Last Picture (Recall this 04/03/24 field) -Exudate Amt Small None Present -Exudate Type Serosanguineous -Wound Margin Distinct, Distinct, Outline Outline Attached Attached -Granulation Amt Large (67-100%) Large (67-100%) Small (1-33%) -Granulation Quality Red Red [place] -Necrosis Amt Small (1-33%) Small (1-33%) -Necrotic Tissue Type Adherent Slough Adherent Slough -Structure Exposed N/A -Texture (Verónica-wound Skin Appearance) Assessed, Assessed Scarring Scarring -Moisture (Verónica-wound Skin Appearance) Assessed,Dry/ Assessed Dry/Scaly Scaly -Color (Verónica-wound Skin Appearance) Assessed Assessed Hemosiderin Staining -Temperature (Verónica-wound Skin No Abnormality No Abnormality Appearance) (Pt Warm) (Pt Warm) -Tenderness on Palpation (Verónica-wound No No Skin Appearance) -Ulcer Cleansing Rinsed/ Rinsed/ Rinsed/ Irrigated with Irrigated with Irrigated with Saline Saline Saline -Foul Odor after Cleansing No No No -Anesthetic Used 5% Lidocaine 5% Lidocaine 5% Lidocaine Gel Gel Gel Right Calf (cm) 52.5 Right Ankle (cm) 23.6 Left Calf (cm) 51.5 52.5 49 Left Ankle (cm) 23.4 24.5 23.3 WC - Nurse 2 - General Ulcer CM Notes Start: 04/03/24 13:19 Freq: Status: Active Protocol: Activity Type Activity Date Activity User E-sign Co-sign Detail Recorded Client Recorded Date Recorded By Document 04/03/24 13:42 DS [id number] 04/03/24 13:44 DS Document 04/10/24 14:06 JF [id number] 04/10/24 14:08 JF Document 04/17/24 14:02 JF [id number] 04/17/24 14:06 JF 04/03/24 04/10/24 04/17/24 13:42 14:06 14:02 Wound Center Nurse 2 #13 LT LAT LE -Time 13:44 14:06 14:04 -Correct Patient Yes Yes Yes -Correct Side, Site, Position Yes Yes Yes -Correct Procedure Yes Yes Yes -Procedure Performed Yes Yes Yes -Type of Procedure Debridement Debridement Debridement -Clinical Debridement Subcutaneous Subcutaneous Subcutaneous -Tissue Removed Subcutaneous Subcutaneous Subcutaneous -Post Debridement (cm) - Length 0.6 0.5 0.4 -Post Debridement (cm) - Width 0.5 0.3 0.2 -Post Debridement (cm) - Depth 0.1 0.1 0.1 -Total Square (Post) (cm) 0.30 0.15 0.08 -Area of Debridement (cm) - Length 0.6 0.5 0.4 -Area of Debridement (cm) - Width 0.5 0.3 0.2 -Total Square (Area) (cm) 0.30 0.15 0.08 -Tunneling No No No -Undermining/Tunneling No No No -Circular Undermining No No No -Wound/Ulcer Outcome Not Healed Not Healed Not Healed -Ulcer Cleansing Rinsed/ Rinsed/ Rinsed/ Irrigated with Irrigated with Irrigated with Saline Saline Saline -Foul Odor after Cleansing No No -Bioengineered Tissue No No -Bleeding Controlled with Pressure Pressure Pressure -Treatment Response Procedure Procedure Procedure Tolerated Well Tolerated Well Tolerated Well -Offloading No No -Debridement - Subq, 1st 20sq cm No No No #12 LT TORRES proximal -Time 13:43 14:07 14:05 -Correct Patient Yes Yes Yes -Correct Side, Site, Position Yes Yes Yes -Correct Procedure Yes Yes Yes -Procedure Performed Yes Yes Yes -Type of Procedure Debridement Debridement Debridement -Clinical Debridement Subcutaneous Subcutaneous Subcutaneous -Tissue Removed Subcutaneous Subcutaneous Subcutaneous -Post Debridement (cm) - Length 0.9 1.2 0.8 -Post Debridement (cm) - Width 0.6 0.4 0.4 -Post Debridement (cm) - Depth 0.1 0.1 0.2 -Total Square (Post) (cm) 0.54 0.48 0.32 -Area of Debridement (cm) - Length 0.9 1.2 0.8 -Area of Debridement (cm) - Width 0.6 0.4 0.4 -Total Square (Area) (cm) 0.54 0.48 0.32 -Tunneling No No No -Undermining/Tunneling No No No -Circular Undermining No No No -Wound/Ulcer Outcome Not Healed Not Healed Not Healed -Ulcer Cleansing Rinsed/ Rinsed/ Rinsed/ Irrigated with Irrigated with Irrigated with Saline Saline Saline -Foul Odor after Cleansing No No -Bioengineered Tissue No No -Bleeding Controlled with Pressure Pressure Pressure -Treatment Response Procedure Procedure Tolerated Well Tolerated Well -Offloading No No -Debridement - Subq, 1st 20sq cm Yes Yes Yes Pain Scale: 0-10 Numeric Is Patient Pain Free? Yes Yes Yes WC - Nurse 3 - General Ulcer D/C NN Start: 04/03/24 13:19 Freq: Status: Active Protocol: Activity Type Activity Date Activity User E-sign Co-sign Detail Recorded Client Recorded Date Recorded By Document 04/03/24 13:53 DL [email or web address] 04/03/24 13:57 DL Document 04/10/24 14:17 KW wound center 04/10/24 14:18 KW Document 04/17/24 14:19 KW wound center 04/17/24 14:20 KW 04/03/24 04/10/24 04/17/24 13:53 14:17 14:19 Wound Care Center Nurse 3 #13 LT LAT LE -Ulcer Cleansing Rinsed/ Rinsed/ Irrigated with Irrigated with Saline Saline -Foul Odor after Cleansing No -Primary Dressing Applied Mepilex Border, Mepilex Border, Melgisorb AG, Promogran Promogran Promogran Barney Matter Barney Matter Barney Matter -Melgisorb AG 1 -Mepilex Border 1 1 -Promogran Barney Matter 1 1 1 #12 LT TORRES proximal -Ulcer Cleansing Rinsed/ Irrigated with Saline -Foul Odor after Cleansing No -Primary Dressing Applied Mepilex Border Mepilex Border Melgisorb AG -Other Dressing barney barney -Melgisorb AG 1 -Mepilex Border 1 1 Left -Tubular Bandage Double Layer Single Layer -Size of Tubigrip Used Size E Size F -Size E ($) 2 -Size F ($) 1 joseph -Compression Wrap Silvestre Wrap -Tubular Bandage Double Layer -Size of Tubigrip Used Size E -Size E ($) 2 Treatment Response Procedure Tolerated Well Pain Scale: 0-10 Numeric Is Patient Pain Free? Yes Yes Yes WC - Visit Discharge Discharge Condition Stable Stable Stable Ambulatory Status Ambulatory Ambulatory Ambulatory Transportation Private Auto Private Auto Private Auto Medication Reconcilliation completed & No No provided to patient/care provider Clinical Summary of Care Provided Yes Yes Assessment/Plan Assessment/Plan (1) Non-pressure chronic ulcer of other part of left lower leg with fat layer exposed: CODE(S): L97.822 - Non-pressure chronic ulcer of other part of left lower leg with fat layer exposed PLAN: Patient was examined and evaluated. All findings were discussed with the patient. All questions were answered to the patient's satisfaction. Excisional debridement down to including subcutaneous tissue of the left proximal ulceration with a number 3 mm dermal curette without incident. Predebridement measurement is 0.7 x 0.3 x 0.1 cm. Postdebridement measurement is 0.8 x 0.4 x 0.2 cm. Excisional debridement down to including subcutaneous tissue of the left distal lateral ulceration with a number 3 mm dermal curette without incident. Predominant measurement is 0.3 x 0.1 x 0.1 cm. Postdebridement measurement is 0.4x 0.2 x 0.1 cm. The left lower extremities were cleaned and patted dry. Moistened Barney was applied to the proximal and distal wounds of left lower extremity followed by Tubigrip and Silvestre bandage. Patient will continue to do dressing changes at home. Follow-up at the wound care center with Dr. Lewis in 1 week. (2) Chronic painful diabetic polyneuropathy: CODE(S): E11.42 - Type 2 diabetes mellitus with diabetic polyneuropathy (3) Other specified peripheral vascular diseases: CODE(S): I73.89 - Other specified peripheral vascular diseases
== END 2024-04-19 23:59 | disposition home or self-care (01) ==
LOC: WC 13:45
PROVIDERS: PCP Internal Medicine; Referring Provider Internal Medicine; Visit Provider Podiatrist Foot & Ankle Surgery
DX: L97.822 Non-pressure chronic ulcer of other part of left lower leg with fat layer exposed (principal); F25.9 Schizoaffective disorder, unspecified; F31.9 Bipolar disorder, unspecified; E11.65 Type 2 diabetes mellitus with hyperglycemia; E11.42 Type 2 diabetes mellitus with diabetic polyneuropathy; Z79.4 Long term (current) use of insulin; I10 Essential (primary) hypertension; G43.909 Migraine, unspecified, not intractable, without status migrainosus; Z79.51 Long term (current) use of inhaled steroids; I73.89 Other specified peripheral vascular diseases; F90.9 Attention-deficit hyperactivity disorder, unspecified type; G47.33 Obstructive sleep apnea (adult) (pediatric); J45.909 Unspecified asthma, uncomplicated
CPT/HCPCS: 11042

== ENCOUNTER 2024-05-15 13:30 | Outpatient (RCR) | payer MEDICAID, SELFPAY ==
[2024-04-20 01:17] VITALS: BP 167/87; PULSE 74; RESP 20; TEMP 36.5; BMI 51.5
[2024-04-24 14:00] VITALS: BP 150/90; PULSE 88; RESP 18; TEMP 35.4; BMI 51.5
--- NOTE | 2024-04-24 15:25 | PCM.WC.PN ---
History of Present Illness Date of Service: 04/24/24 Chief Complaint: Left anterior leg ulcer History of Wound: 4-year-old female with left leg wound secondary to trauma. Patient is diabetic controlled however she has elevated blood sugar secondary to bilateral ear infections. Subjective Subjective Mrs. Lang is a 58-year-old diabetic female presenting to the wound care center today for follow-up and evaluation of left leg full-thickness ulceration. Patient has been compliant with dressing changes. She states improvement to her wounds. She is currently on nasal cannula oxygen. She admits to regulated blood sugar. She denies trauma. Denies constitutional symptoms. No other pedal complaints at this time. Objective Data Objective Data Vital Signs: Vital Signs Temp Pulse Resp BP O2 Del Method O2 Flow Rate 95.8 F L 88 18 150/90 H Nasal Cannula 2 04/24/24 14:00 04/24/24 14:00 04/24/24 14:00 04/24/24 14:00 04/24/24 14:00 04/20/24 01:17 Oxygen Flow Rate (L/min) 2 Oxygen Delivery Method Nasal Cannula Weight: 140.614 kg Body Mass Index (BMI) 51.5 Physical Exam Narrative Vascular: DP and PT pulse are palpable. CFT is brisk to all digits of the left lower extremity. Nonpitting edema appreciated left lower extremity. Skin temperature great is warm to warm from proximal ankle to distal digit bilateral. No focal increase appreciated. Evidence of hemosiderin deposits bilateral. Neurological: Light touch intact. Protective station is absent. Dermatological: 2 full-thickness ulcerations to the anterior proximal and distal lateral aspect of the left lower extremity. Both wounds show evidence of 100% granular tissue with no evidence of fibrotic tissue. No active drainage. No probe to bone. No malodor. No sign of infection. The left proximal ulceration measures 1.0 x 1.0 x 0.2 cm. The left dorsal lateral ulceration is healed. Excisional debridement down to including subcutaneous tissue of the left proximal ulceration with a number 3 mm dermal curette without incident. Predebridement measurement is 0.8 x 0.9 x 0.1 cm. Postdebridement measurement is 1.0 x 1.0 x 0.2 cm. Musculoskeletal: The strength is 5 of 5 in all quads bilateral. No pain on palpation to the left full-thickness ulceration. No pain with calf compression. Debridement Note Debridement Note Debridement Free Text: Excisional debridement down to including subcutaneous tissue of the left proximal ulceration with a number 3 mm dermal curette without incident. Predebridement measurement is 0.8 x 0.9 x 0.1 cm. Postdebridement measurement is 1.0 x 1.0 x 0.2 cm. 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 ) Arrival Mode Ambulatory Patient Identification Verified (Name & Yes ) Height and Weight Body Mass Index (BMI) 51.5 BMI Classification Obese Vital Signs Temperature (97.8 F-99.1 F) 95.8 F L Temperature Source Temporal Pulse Rate (60-100) 88 Pulse Location Monitor Respiratory Rate (12-18) 18 Respiratory rate source Observation Oxygen Delivery Method Nasal Cannula Blood Pressure (90/60-120/80) 150/90 H Blood Pressure Mean (mm Hg) 110 Source Monitor Position Semi-Fowlers Blood Pressure Location Left Forearm History Since Last Visit- (Skip if this is Patient's initial visit) Have you changed medications since your No last visit? Any new allergies or adverse reactions No Had a fall/change in ADL's that may No increase risk of falls Signs or symptoms of abuse and/or No neglect since last visit Have you been in the hospital since your No last visit? Has dressing in place as prescribed Yes Has compression in place as prescribed No Has offloadiing in place as prescribed N/A Experienced any changes in pain level or No management Left Footwear Regular Shoe Right Footwear Regular Shoe Pain Scale: 0-10 Numeric Is Patient Pain Free? Yes NILO [place] Nurse 1 - General Ulcer Measurement Start: 04/24/24 14:00 Freq: Status: Active Protocol: Activity Type Activity Date Activity User E-sign Co-sign Detail Recorded Client Recorded Date Recorded By Document 04/24/24 14:00 KW Wound center 04/24/24 14:06 KW 04/24/24 14:00 Wound Center Nurse 1 #13 LT LAT LE -Current Size (cm) - Length 0.8 -Current Size (cm) - Width 0.6 -Current Size (cm) - Depth 0.1 -Total Square Cm 0.48 -Exudate Amt Medium -Exudate Type Serosanguineous -Wound Margin Distinct, Outline Attached -Granulation Amt Small (1-33%) -Granulation Quality [place] -Necrosis Amt Large (67-100%) -Necrotic Tissue Type Adherent Slough -Texture (Verónica-wound Skin Appearance) Assessed -Moisture (Verónica-wound Skin Appearance) Assessed -Color (Verónica-wound Skin Appearance) Assessed -Temperature (Verónica-wound Skin No Abnormality Appearance) (Pt Warm) -Tenderness on Palpation (Verónica-wound No Skin Appearance) -Ulcer Cleansing Rinsed/ Irrigated with Saline -Foul Odor after Cleansing No -Anesthetic Used 5% Lidocaine Gel #12 LT TORRES proximal -Current Size (cm) - Length 0.1 -Current Size (cm) - Width 0.1 -Current Size (cm) - Depth 0.1 -Total Square Cm 0.01 -Exudate Amt Small -Exudate Type Serosanguineous -Wound Margin Distinct, Outline Attached -Granulation Amt Large (67-100%) -Granulation Quality Red -Texture (Verónica-wound Skin Appearance) Assessed -Moisture (Verónica-wound Skin Appearance) Assessed -Color (Verónica-wound Skin Appearance) Assessed -Temperature (Verónica-wound Skin No Abnormality Appearance) (Pt Warm) -Tenderness on Palpation (Verónica-wound No Skin Appearance) -Ulcer Cleansing Rinsed/ Irrigated with Saline -Foul Odor after Cleansing No -Anesthetic Used 5% Lidocaine Gel Left Calf (cm) 53 Left Ankle (cm) 24 WC - Nurse 2 - General Ulcer CM Notes Start: 04/24/24 14:00 Freq: Status: Active Protocol: Activity Type Activity Date Activity User E-sign Co-sign Detail Recorded Client Recorded Date Recorded By Document 04/24/24 14:19 [id number] [id number] 04/24/24 14:22 04/24/24 14:19 Wound Center Nurse 2 #13 LT LAT LE -Correct Patient No -Correct Side, Site, Position No -Correct Procedure No -Procedure Performed No -Post Debridement (cm) - Length 0 -Post Debridement (cm) - Width 0 -Post Debridement (cm) - Depth 0 -Total Square (Post) (cm) 0 -Area of Debridement (cm) - Length 0 -Area of Debridement (cm) - Width 0 -Total Square (Area) (cm) 0 -Wound/Ulcer Outcome Healed- Epithelialized #12 LT TORRES proximal -Time 14:21 -Correct Patient Yes -Correct Side, Site, Position Yes -Correct Procedure Yes -Procedure Performed Yes -Type of Procedure Debridement -Clinical Debridement Subcutaneous -Tissue Removed Subcutaneous -Post Debridement (cm) - Length 1.0 -Post Debridement (cm) - Width 1.0 -Post Debridement (cm) - Depth 0.2 -Total Square (Post) (cm) 1.00 -Area of Debridement (cm) - Length 1.0 -Area of Debridement (cm) - Width 1.0 -Total Square (Area) (cm) 1.00 -Tunneling No -Undermining/Tunneling No -Circular Undermining No -Wound/Ulcer Outcome Not Healed -Ulcer Cleansing Rinsed/ Irrigated with Saline -Foul Odor after Cleansing No -Bioengineered Tissue No -Bleeding Controlled with Pressure -Treatment Response Procedure Tolerated Well -Offloading No -Debridement - Subq, 1st 20sq cm Yes Pain Scale: 0-10 Numeric Is Patient Pain Free? Yes - Nurse 3 - General Ulcer D/C NN Start: 04/24/24 14:00 Freq: Status: Active Protocol: Activity Type Activity Date Activity User E-sign Co-sign Detail Recorded Client Recorded Date Recorded By Document 04/24/24 14:27 Wound center 04/24/24 14:27 04/24/24 14:27 Wound Care Center Nurse 3 #12 LT TORRES proximal -Primary Dressing Applied Mepilex Border, Promogran Latisha Matter -Mepilex Border 1 -Promogran Latisha Matter 1 Left -Tubular Bandage Single Layer -Size of Tubigrip Used Size E -Size E ($) 1 joseph -Compression Wrap Silvestre Wrap Pain Scale: 0-10 Numeric Is Patient Pain Free? Yes WC - Visit Discharge Discharge Condition Stable Ambulatory Status Ambulatory Transportation Private Auto Medication Reconcilliation completed & No provided to patient/care provider Clinical Summary of Care Provided Yes Assessment/Plan Assessment/Plan (1) Non-pressure chronic ulcer of other part of left lower leg with fat layer exposed: CODE(S): L97.822 - Non-pressure chronic ulcer of other part of left lower leg with fat layer exposed PLAN: Patient was examined and evaluated. All findings were discussed with the patient. All questions were answered to the patient's satisfaction. Excisional debridement down to including subcutaneous tissue of the left proximal ulceration with a number 3 mm dermal curette without incident. Predebridement measurement is 0.8 x 0.9 x 0.1 cm. Postdebridement measurement is 1.0 x 1.0 x 0.2 cm. Left lower extremities were cleaned and patted dry. Moist Latisha was applied to the left proximal leg followed by dry sterile dressing and Tubigrip. Will begin authorization for skin graft substitute. The patient will follow-up in 2 weeks if the patient's wound is smaller than 1 x 1 cm we will forego the skin graft substitute and continue Latisha and every other day dressing changes. Follow-up at the wound care center with Dr. Lewis in 2 week. (2) Venous insufficiency (chronic) (peripheral): CODE(S): I87.2 - Venous insufficiency (chronic) (peripheral)
[2024-05-15 13:27] VITALS: BP 130/76; PULSE 88; RESP 18; TEMP 35.6; BMI 51.5
--- NOTE | 2024-05-15 14:29 | PN.PCM_ITS ---
History of Present Illness Date of Service: 05/15/24 Chief Complaint: Left anterior leg ulcer History of Wound: 4-year-old female with left leg wound secondary to trauma. Patient is diabetic controlled however she has elevated blood sugar secondary to bilateral ear infections. Subjective Subjective Mrs. Lang is a 58-year-old diabetic female presenting to the wound care center today for follow-up and evaluation of left leg full-thickness ulceration. Patient has been compliant with dressing changes. She admits to being approved for skin graft substitutes to the left leg ulceration. She is currently still on nasal cannula oxygen. Blood sugar well-controlled. Denies trauma. Denies constitutional symptoms. No other pedal complaints at this time. Objective Data Objective Data Vital Signs: Vital Signs Temp Pulse Resp BP O2 Del Method O2 Flow Rate 96.0 F L 88 18 130/76 H Nasal Cannula 2 05/15/24 13:27 05/15/24 13:27 05/15/24 13:27 05/15/24 13:27 05/15/24 13:27 04/20/24 01:17 Oxygen Flow Rate (L/min) 2 Oxygen Delivery Method Nasal Cannula Weight: 140.614 kg Body Mass Index (BMI) 51.5 Physical Exam Narrative Vascular: DP and PT pulse are palpable. CFT is brisk to all digits of the left lower extremity. Nonpitting edema appreciated left lower extremity. Skin temperature great is warm to warm from proximal ankle to distal digit bilateral. No focal increase appreciated. Evidence of hemosiderin deposits bilateral. Neurological: Light touch intact. Protective station is absent. Dermatological: Full-thickness ulceration to the left leg measuring 1.2 x 1.0 x 0.2 cm. Wound base is 100% granular nature. No drainage. No probe to bone. No sign of infection. Excisional debridement down to including subcutaneous tissue of the left proximal ulceration with a number 3 mm dermal curette without incident. Predebridement measurement is 1.0 x 0.9 x 0.1 cm. Postdebridement measurement is 1.2 x 1.0 x 0.2 cm. EpiFix 18 mm disc was applied to the left full-thickness ulceration with 100% use. First application. The graft site was free and clear of any infection. The wound/skin graft substitute was dressed with nonadherent bandage secured in place with Steri-Strips followed by bolster dressing as well as a 3M double layer wrap to left lower extremity. Musculoskeletal: The strength is 5 of 5 in all quads bilateral. No pain on palpation to the left full-thickness ulceration. No pain with calf compression. Debridement Note Debridement Note Debridement Free Text: Excisional debridement down to including subcutaneous tissue of the left proximal ulceration with a number 3 mm dermal curette without incident. Predebridement measurement is 1.0 x 0.9 x 0.1 cm. Postdebridement measurement is 1.2 x 1.0 x 0.2 cm. EpiFix 18 mm disc was applied to the left full-thickness ulceration with 100% use. First application. The graft site was free and clear of any infection. The wound/skin graft substitute was dressed with nonadherent bandage secured in place with Steri-Strips followed by bolster dressing as well as a 3M double layer wrap to left lower extremity. Post-Debridement Measurements and Additional Note: Post-Debridement Measurements/Treatment WC - Nurse 1 - General Ulcer Assessment Start: 04/24/24 14:00 Freq: Status: Active Protocol: PERRY Activity Type Activity Date Activity User E-sign Co-sign Detail Recorded Client Recorded Date Recorded By Document 04/24/24 14:00 KW Wound center 04/24/24 14:06 KW Document 05/15/24 13:27 KW ; 05/15/24 13:36 KW 04/24/24 05/15/24 14:00 13:27 - Today's Visit Information Type of service Follow-up Visit Follow-up Visit (Physician/EMOTIONAL DISABILITIES TEACHER (Physician/EMOTIONAL DISABILITIES TEACHER ) ) Arrival Mode Ambulatory Ambulatory Patient Identification Verified (Name & Yes Yes ) Height and Weight Body Mass Index (BMI) 51.5 51.5 BMI Classification Obese Obese Vital Signs Temperature (97.8 F-99.1 F) 95.8 F L 96.0 F L Temperature Source Temporal Temporal Pulse Rate (60-100) 88 88 Pulse Location Monitor Monitor Respiratory Rate (12-18) 18 18 Respiratory rate source Observation Observation Oxygen Delivery Method Nasal Cannula Nasal Cannula Blood Pressure (90/60-120/80) 150/90 H 130/76 H Blood Pressure Mean (mm Hg) 110 94 Source Monitor Monitor Position Semi-Fowlers Semi-Fowlers Blood Pressure Location Left Forearm Left Forearm History Since Last Visit- (Skip if this is Patient's initial visit) Have you changed medications since your No No last visit? Any new allergies or adverse reactions No No Had a fall/change in ADL's that may No No increase risk of falls Signs or symptoms of abuse and/or No No neglect since last visit Have you been in the hospital since your No No last visit? Has dressing in place as prescribed Yes Yes Has compression in place as prescribed No No Has offloadiing in place as prescribed N/A N/A Experienced any changes in pain level or No No management Left Footwear Regular Shoe Regular Shoe Right Footwear Regular Shoe Regular Shoe Pain Scale: 0-10 Numeric Is Patient Pain Free? Yes Yes WC - Nurse 1 - General Ulcer Measurement Start: 04/24/24 14:00 Freq: Status: Active Protocol: Activity Type Activity Date Activity User E-sign Co-sign Detail Recorded Client Recorded Date Recorded By Document 04/24/24 14:00 KW Wound center 04/24/24 14:06 KW Document 05/15/24 13:27 KW ; 05/15/24 13:36 KW 04/24/24 05/15/24 14:00 13:27 Wound Center Nurse 1 #14 LT 2ND TOE -Current Size (cm) - Length 0.2 -Current Size (cm) - Width 0.2 -Current Size (cm) - Depth 0.1 -Total Square Cm 0.04 -Date of Last Picture (Recall this 05/15/24 field) -Exudate Amt Small -Exudate Type Serosanguineous -Wound Margin Distinct, Outline Attached -Texture (Verónica-wound Skin Appearance) Assessed -Moisture (Verónica-wound Skin Appearance) Assessed -Color (Verónica-wound Skin Appearance) Assessed -Temperature (Verónica-wound Skin No Abnormality Appearance) (Pt Warm) -Tenderness on Palpation (Verónica-wound No Skin Appearance) -Ulcer Cleansing Rinsed/ Irrigated with Saline -Foul Odor after Cleansing No -Anesthetic Used 5% Lidocaine Gel -Wound Comment(s) SCABBED #13 LT LAT LE -Current Size (cm) - Length 0.8 -Current Size (cm) - Width 0.6 -Current Size (cm) - Depth 0.1 -Total Square Cm 0.48 -Exudate Amt Medium -Exudate Type Serosanguineous -Wound Margin Distinct, Outline Attached -Granulation Amt Small (1-33%) -Granulation Quality [place] -Necrosis Amt Large (67-100%) -Necrotic Tissue Type Adherent Slough -Texture (Verónica-wound Skin Appearance) Assessed -Moisture (Verónica-wound Skin Appearance) Assessed -Color (Verónica-wound Skin Appearance) Assessed -Temperature (Verónica-wound Skin No Abnormality Appearance) (Pt Warm) -Tenderness on Palpation (Verónica-wound No Skin Appearance) -Ulcer Cleansing Rinsed/ Irrigated with Saline -Foul Odor after Cleansing No -Anesthetic Used 5% Lidocaine Gel #12 LT TORERS proximal -Current Size (cm) - Length 0.1 -Current Size (cm) - Width 0.1 -Current Size (cm) - Depth 0.1 -Total Square Cm 0.01 -Date of Last Picture (Recall this 05/15/24 field) -Exudate Amt Small Medium -Exudate Type Serosanguineous Serosanguineous -Wound Margin Distinct, Distinct, Outline Outline Attached Attached -Granulation Amt Large (67-100%) Medium (34-66%) -Granulation Quality Red Red -Necrosis Amt Medium (34-66%) -Necrotic Tissue Type Adherent Slough -Texture (Verónica-wound Skin Appearance) Assessed Assessed -Moisture (Verónica-wound Skin Appearance) Assessed Assessed -Color (Verónica-wound Skin Appearance) Assessed Assessed -Temperature (Verónica-wound Skin No Abnormality No Abnormality Appearance) (Pt Warm) (Pt Warm) -Tenderness on Palpation (Verónica-wound No No Skin Appearance) -Ulcer Cleansing Rinsed/ Rinsed/ Irrigated with Irrigated with Saline Saline -Foul Odor after Cleansing No -Anesthetic Used 5% Lidocaine 5% Lidocaine Gel Gel Left Calf (cm) 53 56 Left Ankle (cm) 24 24 - Nurse 2 - General Ulcer CM Notes Start: 04/24/24 14:00 Freq: Status: Active Protocol: Activity Type Activity Date Activity User E-sign Co-sign Detail Recorded Client Recorded Date Recorded By Document 04/24/24 14:19 CARLOS [id number] 04/24/24 14:22 JF Document 05/15/24 13:41 JF 000 05/15/24 13:49 JF 04/24/24 05/15/24 14:19 13:41 Wound Center Nurse 2 #14 LT 2ND TOE -Correct Patient No -Correct Side, Site, Position No -Correct Procedure No -Procedure Performed No -Post Debridement (cm) - Length 0 -Post Debridement (cm) - Width 0 -Post Debridement (cm) - Depth 0 -Total Square (Post) (cm) 0 -Area of Debridement (cm) - Length 0 -Area of Debridement (cm) - Width 0 -Total Square (Area) (cm) 0 -Wound/Ulcer Outcome Healed- Epithelialized #13 LT LAT LE -Correct Patient No -Correct Side, Site, Position No -Correct Procedure No -Procedure Performed No -Post Debridement (cm) - Length 0 -Post Debridement (cm) - Width 0 -Post Debridement (cm) - Depth 0 -Total Square (Post) (cm) 0 -Area of Debridement (cm) - Length 0 -Area of Debridement (cm) - Width 0 -Total Square (Area) (cm) 0 -Wound/Ulcer Outcome Healed- Epithelialized #12 LT TORRES proximal -Time 14:21 13:47 -Correct Patient Yes Yes -Correct Side, Site, Position Yes Yes -Correct Procedure Yes Yes -Procedure Performed Yes Yes -Type of Procedure Debridement Debridement -Clinical Debridement Subcutaneous Subcutaneous -Tissue Removed Subcutaneous Subcutaneous -Post Debridement (cm) - Length 1.0 -Post Debridement (cm) - Width 1.0 -Post Debridement (cm) - Depth 0.2 -Total Square (Post) (cm) 1.00 -Area of Debridement (cm) - Length 1.0 -Area of Debridement (cm) - Width 1.0 -Total Square (Area) (cm) 1.00 -Tunneling No No -Undermining/Tunneling No No -Circular Undermining No No -Wound/Ulcer Outcome Not Healed Not Healed -Ulcer Cleansing Rinsed/ Rinsed/ Irrigated with Irrigated with Saline Saline -Foul Odor after Cleansing No No -Bioengineered Tissue No Yes -Type of Bioengineered Tissue Epifix 18mm Disc -Expiration Date 11/20/28 -Product Lot Number [id number] -Percent Used 100 -Lot number of Saline Used [id number] -Bleeding Controlled with Pressure Pressure -Treatment Response Procedure Procedure Tolerated Well Tolerated Well -Offloading No No -Debridement - Subq, 1st 20sq cm Yes No -Apply Skin Sub - 1st 25 sq cm - Legs 1 -Epifix 18mm Disc 3 Pain Scale: 0-10 Numeric Is Patient Pain Free? Yes Yes WC - Nurse 3 - General Ulcer D/C NN Start: 04/24/24 14:00 Freq: Status: Active Protocol: Activity Type Activity Date Activity User E-sign Co-sign Detail Recorded Client Recorded Date Recorded By Document 04/24/24 14:27 KW Wound center 04/24/24 14:27 KW Document 05/15/24 14:15 KW ; 05/15/24 14:15 KW 04/24/24 05/15/24 14:27 14:15 Wound Care Center Nurse 3 #12 LT TORRES proximal -Primary Dressing Applied Mepilex Border, Optilok 6.5x10 Promogran Latisha Matter -Primary Dressing Covered/Secured with Dry Gauze & Roll Gauze, Secured with Tape -Mepilex Border 1 -Optilok 6.5x10 1 -Promogran Latisha Matter 1 Left -Multi-Layered Wrap Application Multi-Layer Comp - Left ($) -Tubular Bandage Single Layer -Size of Tubigrip Used Size E -Size E ($) 1 joseph -Compression Wrap Silvestre Wrap Pain Scale: 0-10 Numeric Is Patient Pain Free? Yes Yes WC - Visit Discharge Discharge Condition Stable Ambulatory Status Ambulatory Transportation Private Auto Medication Reconcilliation completed & No provided to patient/care provider Clinical Summary of Care Provided Yes Assessment/Plan Assessment/Plan (1) Non-pressure chronic ulcer of other part of left lower leg with fat layer exposed: CODE(S): L97.822 - Non-pressure chronic ulcer of other part of left lower leg with fat layer exposed PLAN: Patient was examined and evaluated. All findings were discussed with the patient. All questions were answered to the patient's satisfaction. Excisional debridement down to including subcutaneous tissue of the left proximal ulceration with a number 3 mm dermal curette without incident. Predebridement measurement is 1.0 x 0.9 x 0.1 cm. Postdebridement measurement is 1.2 x 1.0 x 0.2 cm. EpiFix 18 mm disc was applied to the left full-thickness ulceration with 100% use. First application. The graft site was free and clear of any infection. The wound/skin graft substitute was dressed with nonadherent bandage secured in place with Steri-Strips followed by bolster dressing as well as a 3M double layer wrap to left lower extremity. Follow-up at the wound care center with Dr. Lewis in 1 week. (2) Other specified peripheral vascular diseases: CODE(S): I73.89 - Other specified peripheral vascular diseases (3) Chronic painful diabetic polyneuropathy: CODE(S): E11.42 - Type 2 diabetes mellitus with diabetic polyneuropathy
== END 2024-05-19 23:59 | disposition home or self-care (01) ==
LOC: WC 13:30
PROVIDERS: PCP Internal Medicine; Referring Provider Internal Medicine; Visit Provider Podiatrist Foot & Ankle Surgery
DX: E11.622 Type 2 diabetes mellitus with other skin ulcer (principal); L97.822 Non-pressure chronic ulcer of other part of left lower leg with fat layer exposed; E11.65 Type 2 diabetes mellitus with hyperglycemia; E11.59 Type 2 diabetes mellitus with other circulatory complications; E11.51 Type 2 diabetes mellitus with diabetic peripheral angiopathy without gangrene; I87.2 Venous insufficiency (chronic) (peripheral)
CPT/HCPCS: 11042; 15271; 29581; Q4186

== ENCOUNTER 2024-06-19 13:30 | Outpatient (RCR) | payer MEDICAID, SELFPAY ==
[2024-05-20 00:38] VITALS: BP 167/87; PULSE 74; RESP 20; TEMP 36.5; BMI 51.5
[2024-05-22 13:20] VITALS: BP 162/92; PULSE 75; RESP 20; TEMP 35.7; BMI 51.5
--- NOTE | 2024-05-22 15:32 | PN.PCM_ITS ---
History of Present Illness Date of Service: 05/22/24 Chief Complaint: Left anterior leg ulcer History of Wound: 4-year-old female with left leg wound secondary to trauma. Patient is diabetic controlled however she has elevated blood sugar secondary to bilateral ear infections. Subjective Subjective Mrs. Lang is a 58-year-old diabetic female presenting to the wound care center today for follow-up and evaluation of left leg full-thickness ulceration. Patient has been compliant with dressing changes. She admits to being approved for skin graft substitutes to the left leg ulceration. She is currently still on nasal cannula oxygen. Blood sugar well-controlled. Denies trauma. Denies constitutional symptoms. No other pedal complaints at this time. Objective Data Objective Data Vital Signs: Vital Signs Temp Pulse Resp BP O2 Del Method O2 Flow Rate 96.3 F L 75 20 H 162/92 H Nasal Cannula 2 05/22/24 13:20 05/22/24 13:20 05/22/24 13:20 05/22/24 13:20 05/22/24 13:20 05/20/24 00:38 Oxygen Flow Rate (L/min) 2 Oxygen Delivery Method Nasal Cannula Weight: 140.614 kg Body Mass Index (BMI) 51.5 Physical Exam Narrative Vascular: DP and PT pulse are palpable. CFT is brisk to all digits of the left lower extremity. Nonpitting edema appreciated left lower extremity. Skin temperature great is warm to warm from proximal ankle to distal digit bilateral. No focal increase appreciated. Evidence of hemosiderin deposits bilateral. Neurological: Light touch intact. Protective station is absent. Dermatological: Full-thickness ulceration to the left leg measuring 1.2 x 0.9 x 0.2 cm. Wound base is 100% granular nature. No drainage. No probe to bone. No sign of infection. Excisional debridement down to including subcutaneous tissue of the left proximal ulceration with a number 3 mm dermal curette without incident. Predebridement measurement is 1.1 x 0.8 x 0.1 cm. Postdebridement measurement is 1.2 x 0.9 x 0.2 cm. EpiFix 18 mm disc was applied to the left full-thickness ulceration with 100% use. Second application. The graft site was free and clear of any infection. The wound/skin graft substitute was dressed with nonadherent bandage secured in place with Steri-Strips followed by bolster dressing as well as a 3M double layer wrap to left lower extremity. Musculoskeletal: The strength is 5 of 5 in all quads bilateral. No pain on palpation to the left full-thickness ulceration. No pain with calf compression. Debridement Note Debridement Note Debridement Free Text: Excisional debridement down to including subcutaneous tissue of the left proximal ulceration with a number 3 mm dermal curette without incident. Predebridement measurement is 1.1 x 0.8 x 0.1 cm. Postdebridement measurement is 1.2 x 0.9 x 0.2 cm. EpiFix 18 mm disc was applied to the left full-thickness ulceration with 100% use. Second application. The graft site was free and clear of any infection. The wound/skin graft substitute was dressed with nonadherent bandage secured in place with Steri-Strips followed by bolster dressing as well as a 3M double layer wrap to left lower extremity. Post-Debridement Measurements and Additional Note: Post-Debridement Measurements/Treatment WC - Nurse 1 - General Ulcer Assessment Start: 05/22/24 13:20 Freq: Status: Active Protocol: PERRY Activity Type Activity Date Activity User E-sign Co-sign Detail Recorded Client Recorded Date Recorded By Document 05/22/24 13:20 KW 0000 05/22/24 13:27 KW 05/22/24 13:20 - Today's Visit Information Type of service Follow-up Visit (Physician/[employer] ) Arrival Mode Ambulatory Patient Identification Verified (Name & Yes ) Height and Weight Body Mass Index (BMI) 51.5 BMI Classification Obese Vital Signs Temperature (97.8 F-99.1 F) 96.3 F L Temperature Source Temporal Pulse Rate (60-100) 75 Pulse Location Monitor Respiratory Rate (12-18) 20 H Respiratory rate source Observation Oxygen Delivery Method Nasal Cannula Blood Pressure (90/60-120/80) 162/92 H Blood Pressure Mean (mm Hg) 115 Source Monitor Position Semi-Fowlers Blood Pressure Location Left Forearm History Since Last Visit- (Skip if this is Patient's initial visit) Have you changed medications since your No last visit? Any new allergies or adverse reactions No Had a fall/change in ADL's that may No increase risk of falls Signs or symptoms of abuse and/or No neglect since last visit Have you been in the hospital since your No last visit? Has dressing in place as prescribed Yes Has compression in place as prescribed Yes Has offloadiing in place as prescribed Yes Experienced any changes in pain level or No management Left Footwear Regular Shoe Right Footwear Regular Shoe Pain Scale: 0-10 Numeric Is Patient Pain Free? Yes - Nurse 1 - General Ulcer Measurement Start: 05/22/24 13:20 Freq: Status: Active Protocol: Activity Type Activity Date Activity User E-sign Co-sign Detail Recorded Client Recorded Date Recorded By Document 05/22/24 13:20 KW 0000 05/22/24 13:27 KW 05/22/24 13:20 Wound Center Nurse 1 #12 LT TORRES proximal -Current Size (cm) - Length 1 -Current Size (cm) - Width 1 -Current Size (cm) - Depth 0.2 -Total Square Cm 1 -Date of Last Picture (Recall this 05/22/24 field) -Exudate Amt Small -Exudate Type Serosanguineous -Wound Margin Distinct, Outline Attached -Granulation Amt Large (67-100%) -Granulation Quality Red -Texture (Verónica-wound Skin Appearance) Assessed -Moisture (Verónica-wound Skin Appearance) Assessed -Color (Verónica-wound Skin Appearance) Assessed -Temperature (Verónica-wound Skin No Abnormality Appearance) (Pt Warm) -Ulcer Cleansing Soap and Water -Foul Odor after Cleansing No -Anesthetic Used 5% Lidocaine Gel Left Calf (cm) 49.5 Left Ankle (cm) 23 - Nurse 2 - General Ulcer CM Notes Start: 05/22/24 13:20 Freq: Status: Active Protocol: Activity Type Activity Date Activity User E-sign Co-sign Detail Recorded Client Recorded Date Recorded By Document 05/22/24 13:49 JF 0000 05/22/24 13:51 JF 05/22/24 13:49 Wound Center Nurse 2 #12 LT TORRES proximal -Time 13:49 -Correct Patient Yes -Correct Side, Site, Position Yes -Correct Procedure Yes -Procedure Performed Yes -Type of Procedure Debridement -Clinical Debridement Subcutaneous -Tissue Removed Subcutaneous -Post Debridement (cm) - Length 1.2 -Post Debridement (cm) - Width 0.9 -Post Debridement (cm) - Depth 0.2 -Total Square (Post) (cm) 1.08 -Area of Debridement (cm) - Length 1.2 -Area of Debridement (cm) - Width 0.9 -Total Square (Area) (cm) 1.08 -Tunneling No -Undermining/Tunneling No -Circular Undermining No -Wound/Ulcer Outcome Not Healed -Ulcer Cleansing Rinsed/ Irrigated with Saline -Foul Odor after Cleansing No -Bioengineered Tissue Yes -Type of Bioengineered Tissue Epifix 18mm Disc -Expiration Date 11/20/28 -Product Lot Number [id number] -Percent Used 100 -Lot number of Saline Used [id number] -Bleeding Controlled with Pressure -Treatment Response Procedure Tolerated Well -Offloading No -Debridement - Subq, 1st 20sq cm No -Apply Skin Sub - 1st 25 sq cm - Legs 1 -Epifix 18mm Disc 3 Pain Scale: 0-10 Numeric Is Patient Pain Free? Yes - Nurse 3 - General Ulcer D/C NN Start: 05/22/24 13:20 Freq: Status: Active Protocol: Activity Type Activity Date Activity User E-sign Co-sign Detail Recorded Client Recorded Date Recorded By Document 05/22/24 14:04 [facility] [id number] 05/22/24 14:04 [facility] 05/22/24 14:04 Wound Care Center Nurse 3 #12 LT TORRES proximal -Primary Dressing Applied Mepilex Border -Other Dressing epi; -Mepilex Border 1 Left -Compression Wrap Silvestre Wrap -Tubular Bandage Single Layer -Size of Tubigrip Used Size F -Size F ($) 1 Treatment Response Procedure Tolerated Well Pain Scale: 0-10 Numeric Is Patient Pain Free? Yes - Visit Discharge Discharge Condition Stable Ambulatory Status Ambulatory Assessment/Plan Assessment/Plan (1) Non-pressure chronic ulcer of other part of left lower leg with fat layer exposed: CODE(S): L97.822 - Non-pressure chronic ulcer of other part of left lower leg with fat layer exposed PLAN: Patient was examined and evaluated. All findings were discussed with the patient. All questions were answered to the patient's satisfaction. Excisional debridement down to including subcutaneous tissue of the left proximal ulceration with a number 3 mm dermal curette without incident. Predebridement measurement is 1.1 x 0.8 x 0.1 cm. Postdebridement measurement is 1.2 x 0.9 x 0.2 cm. EpiFix 18 mm disc was applied to the left full-thickness ulceration with 100% use. Second application. The graft site was free and clear of any infection. The wound/skin graft substitute was dressed with nonadherent bandage secured in place with Steri-Strips followed by bolster dressing as well as a Tubigrip and Silvestre wrap. Follow-up at the wound care center with Dr. Lewis in 1 week. (2) Venous insufficiency (chronic) (peripheral): CODE(S): I87.2 - Venous insufficiency (chronic) (peripheral)
[2024-05-29 10:16] VITALS: BP 146/77; PULSE 66; RESP 18; TEMP 36.1; BMI 51.5
--- NOTE | 2024-05-29 12:26 | PCM.WC.PN ---
History of Present Illness Date of Service: 05/29/24 Chief Complaint: Left anterior leg ulcer History of Wound: 58-year-old female with left leg wound secondary to trauma. Patient is diabetic controlled however she has elevated blood sugar secondary to bilateral ear infections. Subjective Subjective Mrs. Lang is a 58-year-old diabetic female presenting to the wound care center today for follow-up and evaluation of left leg full-thickness ulceration. Patient has been compliant with dressing changes. She admits to being approved for skin graft substitutes to the left leg ulceration. She is currently still on nasal cannula oxygen. Blood sugar well-controlled. Admits to the same left ear infection will follow-up with primary for referral for ENT. Denies trauma. Denies constitutional symptoms. No other pedal complaints at this time. Objective Data Objective Data Vital Signs: Vital Signs Temp Pulse Resp BP O2 Del Method O2 Flow Rate 97.0 F L 66 18 146/77 H Nasal Cannula 2 05/29/24 10:16 05/29/24 10:16 05/29/24 10:16 05/29/24 10:16 05/22/24 13:20 05/20/24 00:38 Oxygen Flow Rate (L/min) 2 Oxygen Delivery Method Nasal Cannula Weight: 140.614 kg Body Mass Index (BMI) 51.5 Physical Exam Narrative Vascular: DP and PT pulse are palpable. CFT is brisk to all digits of the left lower extremity. Nonpitting edema appreciated left lower extremity. Skin temperature great is warm to warm from proximal ankle to distal digit bilateral. No focal increase appreciated. Evidence of hemosiderin deposits bilateral. Neurological: Light touch intact. Protective station is absent. Dermatological: Full-thickness ulceration to the left leg measuring 1.0 x 0.9 x 0.2 cm. Wound base is 100% granular nature. No drainage. No probe to bone. No sign of infection. Excisional debridement down to including subcutaneous tissue of the left proximal ulceration with a number 3 mm dermal curette without incident. Predebridement measurement is 0.9 x 0.8 x 0.1 cm. Postdebridement measurement is 1.0 x 0.9 x 0.2 cm. EpiFix 18 mm disc was applied to the left full-thickness ulceration with 100% use. Third application. The graft site was free and clear of any infection. The wound/skin graft substitute was dressed with nonadherent bandage secured in place with Steri-Strips followed by bolster dressing as well as a 3M double layer wrap to left lower extremity. Musculoskeletal: The strength is 5 of 5 in all quads bilateral. No pain on palpation to the left full-thickness ulceration. No pain with calf compression. Debridement Note Debridement Note Debridement Free Text: Excisional debridement down to including subcutaneous tissue of the left proximal ulceration with a number 3 mm dermal curette without incident. Predebridement measurement is 0.9 x 0.8 x 0.1 cm. Postdebridement measurement is 1.0 x 0.9 x 0.2 cm. EpiFix 18 mm disc was applied to the left full-thickness ulceration with 100% use. Third application. The graft site was free and clear of any infection. The wound/skin graft substitute was dressed with nonadherent bandage secured in place with Steri-Strips followed by bolster dressing as well as a 3M double layer wrap to left lower extremity. Post-Debridement Measurements and Additional Note: Post-Debridement Measurements/Treatment - Nurse 1 - General Ulcer Assessment Start: 05/22/24 13:20 Freq: Status: Active Protocol: WC.LOWEXT Activity Type Activity Date Activity User E-sign Co-sign Detail Recorded Client Recorded Date Recorded By Document 05/22/24 13:20 KW 0000 05/22/24 13:27 KW Document 05/29/24 10:16 KW k 05/29/24 10:22 KW 05/22/24 05/29/24 13:20 10:16 - Today's Visit Information Type of service Follow-up Visit Follow-up Visit (Physician/[employer] [employer] (Physician/[facility] [employer] ) ) Arrival Mode Ambulatory Ambulatory Accompanied by Conrad Patient Identification Verified (Name & Yes Yes ) Finger Stick Blood Sugar(mg/dl) (if 180 indicated): Blood Sugar Stated by Patient Height and Weight Body Mass Index (BMI) 51.5 51.5 BMI Classification Obese Obese Vital Signs Temperature (97.8 F-99.1 F) 96.3 F L 97.0 F L Temperature Source Temporal Temporal Pulse Rate (60-100) 75 66 Pulse Location Monitor Monitor Respiratory Rate (12-18) 20 H 18 Respiratory rate source Observation Observation Oxygen Delivery Method Nasal Cannula Blood Pressure (90/60-120/80) 162/92 H 146/77 H Blood Pressure Mean (mm Hg) 115 100 Source Monitor Monitor Position Semi-Fowlers Semi-Fowlers Blood Pressure Location Left Forearm Left Forearm History Since Last Visit- (Skip if this is Patient's initial visit) Have you changed medications since your No No last visit? Any new allergies or adverse reactions No No Had a fall/change in ADL's that may No No increase risk of falls Signs or symptoms of abuse and/or No No neglect since last visit Have you been in the hospital since your No No last visit? Has dressing in place as prescribed Yes Yes Has compression in place as prescribed Yes No Has offloadiing in place as prescribed Yes N/A Experienced any changes in pain level or No No management Left Footwear Regular Shoe Regular Shoe Right Footwear Regular Shoe Regular Shoe Pain Scale: 0-10 Numeric Is Patient Pain Free? Yes Yes WC - Nurse 1 - General Ulcer Measurement Start: 05/22/24 13:20 Freq: Status: Active Protocol: Activity Type Activity Date Activity User E-sign Co-sign Detail Recorded Client Recorded Date Recorded By Document 05/22/24 13:20 KW 0000 05/22/24 13:27 KW Document 05/29/24 10:16 KW k 05/29/24 10:22 KW 05/22/24 05/29/24 13:20 10:16 Wound Center Nurse 1 #12 LT TORRES proximal -Combined with other wound No -Current Size (cm) - Length 1 1.0 -Current Size (cm) - Width 1 0.9 -Current Size (cm) - Depth 0.2 0.2 -Total Square Cm 1 0.90 -Date of Last Picture (Recall this 05/22/24 field) -Photo Taken Yes -Epithelialization Small 1-33% -Tunneling No -Undermining/Tunneling No -Circular Undermining No -Exudate Amt Small Small -Exudate Type Serosanguineous Serosanguineous -Wound Margin Distinct, Flat & Intact Outline Attached -Granulation Amt Large (67-100%) Medium (34-66%) -Granulation Quality Red Red -Slough/Fibrin Yes -Necrosis Amt Small (1-33%) -Necrotic Tissue Type Adherent Slough -Structure Exposed N/A -Texture (Verónica-wound Skin Appearance) Assessed Assessed, Localized Edema -Moisture (Verónica-wound Skin Appearance) Assessed Assessed,Dry/ Scaly -Color (Verónica-wound Skin Appearance) Assessed Assessed -Temperature (Verónica-wound Skin No Abnormality No Abnormality Appearance) (Pt Warm) (Pt Warm) -Tenderness on Palpation (Verónica-wound No Skin Appearance) -Ulcer Cleansing Soap and Water Wound Cleanser -Foul Odor after Cleansing No No -Anesthetic Used 5% Lidocaine 5% Lidocaine Gel Gel Lower Limb Edema Present Yes Right Calf (cm) 55 Right Ankle (cm) 24 Left Calf (cm) 49.5 52.2 Left Ankle (cm) 23 24.0 WC - Nurse 2 - General Ulcer CM Notes Start: 05/22/24 13:20 Freq: Status: Active Protocol: Activity Type Activity Date Activity User E-sign Co-sign Detail Recorded Client Recorded Date Recorded By Document 05/22/24 13:49 JF 0000 05/22/24 13:51 JF Document 05/29/24 10:25 JF 000 05/29/24 10:28 JF 05/22/24 05/29/24 13:49 10:25 Wound Center Nurse 2 #12 LT TORRES proximal -Time 13:49 10:25 -Correct Patient Yes Yes -Correct Side, Site, Position Yes Yes -Correct Procedure Yes Yes -Procedure Performed Yes Yes -Type of Procedure Debridement Debridement -Clinical Debridement Subcutaneous Subcutaneous -Tissue Removed Subcutaneous Subcutaneous -Post Debridement (cm) - Length 1.2 -Post Debridement (cm) - Width 0.9 -Post Debridement (cm) - Depth 0.2 -Total Square (Post) (cm) 1.08 -Area of Debridement (cm) - Length 1.2 -Area of Debridement (cm) - Width 0.9 -Total Square (Area) (cm) 1.08 -Tunneling No No -Undermining/Tunneling No No -Circular Undermining No No -Wound/Ulcer Outcome Not Healed Not Healed -Ulcer Cleansing Rinsed/ Rinsed/ Irrigated with Irrigated with Saline Saline -Foul Odor after Cleansing No No -Bioengineered Tissue Yes Yes -Type of Bioengineered Tissue Epifix 18mm Epifix 18mm Disc Disc -Expiration Date 11/20/28 12/21/28 -Product Lot Number [id number] -Percent Used 100 100 -Lot number of Saline Used [id number] -Bleeding Controlled with Pressure Silver Nitrate -Treatment Response Procedure Procedure Tolerated Well Tolerated Well -Offloading No No -Debridement - Subq, 1st 20sq cm No No -Apply Skin Sub - 1st 25 sq cm - Legs 1 1 -Epifix 18mm Disc 3 3 Pain Scale: 0-10 Numeric Is Patient Pain Free? Yes Yes - Nurse 3 - General Ulcer D/C NN Start: 05/22/24 13:20 Freq: Status: Active Protocol: Activity Type Activity Date Activity User E-sign Co-sign Detail Recorded Client Recorded Date Recorded By Document 05/22/24 14:04 [facility] [email or web address] 05/22/24 14:04 [facility] Document 05/29/24 10:40 KW ; 05/29/24 10:41 KW 05/22/24 05/29/24 14:04 10:40 Wound Care Center Nurse 3 #12 LT TORRES proximal -Primary Dressing Applied Mepilex Border Mepilex Border -Other Dressing epi; -Mepilex Border 1 1 Right -Compression Wrap Silvestre Wrap -Tubular Bandage Single Layer -Size of Tubigrip Used Size F -Size F ($) 1 Left -Compression Wrap Silvestre Wrap Silvestre Wrap -Tubular Bandage Single Layer Single Layer -Size of Tubigrip Used Size F Size F -Size F ($) 1 1 Treatment Response Procedure Tolerated Well Pain Scale: 0-10 Numeric Is Patient Pain Free? Yes Yes - Visit Discharge Discharge Condition Stable Stable Ambulatory Status Ambulatory Ambulatory Transportation Private Auto Accompanied by aide Medication Reconcilliation completed & No provided to patient/care provider Clinical Summary of Care Provided Yes Assessment/Plan Assessment/Plan (1) Non-pressure chronic ulcer of other part of left lower leg with fat layer exposed: CODE(S): L97.822 - Non-pressure chronic ulcer of other part of left lower leg with fat layer exposed PLAN: Patient was examined and evaluated. All findings were discussed with the patient. All questions were answered to the patient's satisfaction. Excisional debridement down to including subcutaneous tissue of the left proximal ulceration with a number 3 mm dermal curette without incident. Predebridement measurement is 0.9 x 0.8 x 0.1 cm. Postdebridement measurement is 1.0 x 0.9 x 0.2 cm. EpiFix 18 mm disc was applied to the left full-thickness ulceration with 100% use. Third application. The graft site was free and clear of any infection. The wound/skin graft substitute was dressed with nonadherent bandage secured in place with Steri-Strips followed by bolster dressing as well as a 3M double layer wrap to left lower extremity. Follow-up at the wound care center with Dr. Lewis in 1 week. (2) Other specified peripheral vascular diseases: CODE(S): I73.89 - Other specified peripheral vascular diseases
--- NOTE | 2024-05-30 09:10 | WC ---
PHOTO LEFT TORRES 05/22/2024
--- NOTE | 2024-05-30 10:16 | WC ---
PHOTO 05/29/2024 LEFT TORRES
[2024-06-05 10:34] VITALS: BP 160/84; PULSE 80; RESP 18; TEMP 36.1; BMI 51.5
--- NOTE | 2024-06-05 12:19 | PCM.WC.PN ---
History of Present Illness Date of Service: 06/05/24 Chief Complaint: Left anterior leg ulcer History of Wound: 58-year-old female with left leg wound secondary to trauma. Patient is diabetic controlled however she has elevated blood sugar secondary to bilateral ear infections. Subjective Subjective Mrs. Lang is a 58-year-old diabetic female presenting to the wound care center today for follow-up and evaluation of left leg full-thickness ulceration. Blood sugar well-controlled. Denies constitutional symptoms. No other pedal complaints at this time. Objective Data Objective Data Vital Signs: Vital Signs Temp Pulse Resp BP O2 Del Method O2 Flow Rate 97 F L 80 18 160/84 H Room Air 2 06/05/24 10:34 06/05/24 10:34 06/05/24 10:34 06/05/24 10:34 06/05/24 10:34 05/20/24 00:38 Oxygen Flow Rate (L/min) 2 Oxygen Delivery Method Room Air Weight: 140.614 kg Body Mass Index (BMI) 51.5 Physical Exam Narrative Vascular: DP and PT pulse are palpable. CFT is brisk to all digits of the left lower extremity. Nonpitting edema appreciated left lower extremity. Skin temperature great is warm to warm from proximal ankle to distal digit bilateral. No focal increase appreciated. Evidence of hemosiderin deposits bilateral. Neurological: Light touch intact. Protective station is absent. Dermatological: Full-thickness ulceration to the left leg measuring 0.9 x 0.9 x 0.1 cm. Wound base is 100% granular nature. No drainage. No probe to bone. No sign of infection. Excisional debridement down to including subcutaneous tissue of the left proximal ulceration with a number 3 mm dermal curette without incident. Predebridement measurement is 0.8 x 0.8 x 0.1 cm. Postdebridement measurement is 0.9 x 0.9 x 0.1 cm. EpiFix 18 mm disc was applied to the left full-thickness ulceration with 100% use. Fourth application. The graft site was free and clear of any infection. The wound/skin graft substitute was dressed with nonadherent bandage secured in place with Steri-Strips followed by bolster dressing as well as a Silvestre wrap to left lower extremity. Musculoskeletal: The strength is 5 of 5 in all quads bilateral. No pain on palpation to the left full-thickness ulceration. No pain with calf compression. Debridement Note Debridement Note Debridement Free Text: Excisional debridement down to including subcutaneous tissue of the left proximal ulceration with a number 3 mm dermal curette without incident. Predebridement measurement is 0.8 x 0.8 x 0.1 cm. Postdebridement measurement is 0.9 x 0.9 x 0.1 cm. EpiFix 18 mm disc was applied to the left full-thickness ulceration with 100% use. Fourth application. The graft site was free and clear of any infection. The wound/skin graft substitute was dressed with nonadherent bandage secured in place with Steri-Strips followed by bolster dressing as well as a Silvestre wrap to left lower extremity. Post-Debridement Measurements and Additional Note: Post-Debridement Measurements/Treatment - Nurse 1 - General Ulcer Assessment Start: 05/22/24 13:20 Freq: Status: Active Protocol: [email or web address] Activity Type Activity Date Activity User E-sign Co-sign Detail Recorded Client Recorded Date Recorded By Document 05/22/24 13:20 KW 0000 05/22/24 13:27 KW Document 05/29/24 10:16 KW k 05/29/24 10:22 KW Document 06/05/24 10:34 [place] [id number] 06/05/24 10:36 MT 05/22/24 05/29/24 06/05/24 13:20 10:16 10:34 - Today's Visit Information Type of service Follow-up Visit Follow-up Visit (Physician/SURVEYOR ROD HELPER (Physician/SURVEYOR ROD HELPER ) ) Arrival Mode Ambulatory Ambulatory Accompanied by Conrad Patient Identification Verified (Name & Yes Yes ) Finger Stick Blood Sugar(mg/dl) (if 180 104 indicated): Blood Sugar Stated by Stated by Patient Patient Height and Weight Body Mass Index (BMI) 51.5 51.5 51.5 BMI Classification Obese Obese Obese Vital Signs Temperature (97.8 F-99.1 F) 96.3 F L 97.0 F L 97 F L Temperature Source Temporal Temporal Temporal Pulse Rate (60-100) 75 66 80 Pulse Location Monitor Monitor Respiratory Rate (12-18) 20 H 18 18 Respiratory rate source Observation Observation Observation Oxygen Delivery Method Nasal Cannula Room Air Blood Pressure (90/60-120/80) 162/92 H 146/77 H 160/84 H Blood Pressure Mean (mm Hg) 115 100 109 Source Monitor Monitor Monitor Position Semi-Fowlers Semi-Fowlers Sitting Blood Pressure Location Left Forearm Left Forearm Left Arm History Since Last Visit- (Skip if this is Patient's initial visit) Have you changed medications since your No No last visit? Any new allergies or adverse reactions No No Had a fall/change in ADL's that may No No increase risk of falls Signs or symptoms of abuse and/or No No neglect since last visit Have you been in the hospital since your No No last visit? Has dressing in place as prescribed Yes Yes Yes Has compression in place as prescribed Yes No Yes Has offloadiing in place as prescribed Yes N/A Yes Experienced any changes in pain level or No No Yes management Left Footwear Regular Shoe Regular Shoe Regular Shoe Right Footwear Regular Shoe Regular Shoe Regular Shoe Pain Scale: 0-10 Numeric Is Patient Pain Free? Yes Yes Yes WC - Nurse 1 - General Ulcer Measurement Start: 05/22/24 13:20 Freq: Status: Active Protocol: Activity Type Activity Date Activity User E-sign Co-sign Detail Recorded Client Recorded Date Recorded By Document 05/22/24 13:20 KW 0000 05/22/24 13:27 KW Document 05/29/24 10:16 KW k 05/29/24 10:22 KW Document 06/05/24 10:34 [place] [id number] 06/05/24 10:36 [place] 05/22/24 05/29/24 06/05/24 13:20 10:16 10:34 Wound Center Nurse 1 #12 LT TORRES proximal -Combined with other wound No -Current Size (cm) - Length 1 1.0 1.0 -Current Size (cm) - Width 1 0.9 0.7 -Current Size (cm) - Depth 0.2 0.2 0.2 -Total Square Cm 1 0.90 0.70 -Date of Last Picture (Recall this 05/22/24 field) -Photo Taken Yes -Epithelialization Small 1-33% -Tunneling No -Undermining/Tunneling No -Circular Undermining No -Exudate Amt Small Small Small -Exudate Type Serosanguineous Serosanguineous Serosanguineous -Wound Margin Distinct, Flat & Intact Flat & Intact Outline Attached -Granulation Amt Large (67-100%) Medium (34-66%) Small (1-33%) -Granulation Quality Red [place] -Slough/Fibrin Yes -Necrosis Amt Small (1-33%) Large (67-100%) -Necrotic Tissue Type Adherent Slough Adherent Slough -Structure Exposed N/A -Texture (Verónica-wound Skin Appearance) Assessed Assessed, Assessed Localized Edema -Moisture (Verónica-wound Skin Appearance) Assessed Assessed,Dry/ Assessed Scaly -Color (Verónica-wound Skin Appearance) Assessed Assessed Assessed -Temperature (Verónica-wound Skin No Abnormality No Abnormality No Abnormality Appearance) (Pt Warm) (Pt Warm) (Pt Warm) -Tenderness on Palpation (Verónica-wound No No Skin Appearance) -Ulcer Cleansing Soap and Water Wound Cleanser Soap and Water -Foul Odor after Cleansing No No No -Anesthetic Used 5% Lidocaine 5% Lidocaine Gel Gel Lower Limb Edema Present Yes Right Calf (cm) 55 Right Ankle (cm) 24 Left Calf (cm) 49.5 52.2 55 Left Ankle (cm) 23 24.0 24 - Nurse 2 - General Ulcer CM Notes Start: 05/22/24 13:20 Freq: Status: Active Protocol: Activity Type Activity Date Activity User E-sign Co-sign Detail Recorded Client Recorded Date Recorded By Document 05/22/24 13:49 0000 05/22/24 13:51 Document 05/29/24 10:25 000 05/29/24 10:28 Document 06/05/24 11:08 [facility] 06/05/24 11:14 05/22/24 05/29/24 06/05/24 13:49 10:25 11:08 Wound Center Nurse 2 #12 LT TORRES proximal -Time 13:49 10:25 11:08 -Correct Patient Yes Yes Yes -Correct Side, Site, Position Yes Yes Yes -Correct Procedure Yes Yes Yes -Procedure Performed Yes Yes Yes -Type of Procedure Debridement Debridement Debridement -Clinical Debridement Subcutaneous Subcutaneous Subcutaneous -Tissue Removed Subcutaneous Subcutaneous Subcutaneous -Post Debridement (cm) - Length 1.2 0.9 -Post Debridement (cm) - Width 0.9 0.7 -Post Debridement (cm) - Depth 0.2 0.1 -Total Square (Post) (cm) 1.08 0.63 -Area of Debridement (cm) - Length 1.2 0.9 -Area of Debridement (cm) - Width 0.9 0.7 -Total Square (Area) (cm) 1.08 0.63 -Tunneling No No No -Undermining/Tunneling No No No -Circular Undermining No No No -Wound/Ulcer Outcome Not Healed Not Healed Not Healed -Ulcer Cleansing Rinsed/ Rinsed/ Rinsed/ Irrigated with Irrigated with Irrigated with Saline Saline Saline -Foul Odor after Cleansing No No No -Bioengineered Tissue Yes Yes Yes -Type of Bioengineered Tissue Epifix 18mm Epifix 18mm Epifix 18mm Disc Disc Disc -Expiration Date 11/20/28 12/21/28 12/21/28 -Product Lot Number [id number] -Percent Used 100 100 10 -Lot number of Saline Used [id number] -Bleeding Controlled with Pressure Silver Nitrate Pressure -Treatment Response Procedure Procedure Procedure Tolerated Well Tolerated Well Tolerated Well -Offloading No No -Debridement - Subq, 1st 20sq cm No No No -Apply Skin Sub - 1st 25 sq cm - Legs 1 1 1 -Epifix 18mm Disc 3 3 Pain Scale: 0-10 Numeric Is Patient Pain Free? Yes Yes Yes WC - Nurse 3 - General Ulcer D/C NN Start: 05/22/24 13:20 Freq: Status: Active Protocol: Activity Type Activity Date Activity User E-sign Co-sign Detail Recorded Client Recorded Date Recorded By Document 05/22/24 14:04 [facility] [id number] 05/22/24 14:04 [facility] Document 05/29/24 10:40 KW ; 05/29/24 10:41 KW Document 06/05/24 11:26 [place] [id number] 06/05/24 11:28 [place] 05/22/24 05/29/24 06/05/24 14:04 10:40 11:26 Wound Care Center Nurse 3 #12 LT TORRES proximal -Primary Dressing Applied Mepilex Border Mepilex Border Mepilex Border -Other Dressing epi; -Mepilex Border 1 1 1 Right -Compression Wrap Silvestre Wrap Silvestre Wrap -Tubular Bandage Single Layer -Size of Tubigrip Used Size F -Size F ($) 1 Left -Compression Wrap Silvestre Wrap Silvestre Wrap Silvestre Wrap -Tubular Bandage Single Layer Single Layer -Size of Tubigrip Used Size F Size F -Size F ($) 1 1 Treatment Response Procedure Tolerated Well Pain Scale: 0-10 Numeric Is Patient Pain Free? Yes Yes Yes WC - Visit Discharge Discharge Condition Stable Stable Ambulatory Status Ambulatory Ambulatory Transportation Private Auto Accompanied by aide Medication Reconcilliation completed & No provided to patient/care provider Clinical Summary of Care Provided Yes Assessment/Plan Assessment/Plan (1) Non-pressure chronic ulcer of other part of left lower leg with fat layer exposed: CODE(S): L97.822 - Non-pressure chronic ulcer of other part of left lower leg with fat layer exposed PLAN: Patient was examined and evaluated. All findings were discussed with the patient. All questions were answered to the patient's satisfaction. Excisional debridement down to including subcutaneous tissue of the left proximal ulceration with a number 3 mm dermal curette without incident. Predebridement measurement is 0.8 x 0.8 x 0.1 cm. Postdebridement measurement is 0.9 x 0.9 x 0.1 cm. EpiFix 18 mm disc was applied to the left full-thickness ulceration with 100% use. Fourth application. The graft site was free and clear of any infection. The wound/skin graft substitute was dressed with nonadherent bandage secured in place with Steri-Strips followed by bolster dressing as well as a Silvestre wrap to left lower extremity. Follow-up at the wound care center with Dr. Lewsi in 1 week. (2) Other specified peripheral vascular diseases: CODE(S): I73.89 - Other specified peripheral vascular diseases
[2024-06-12 13:39] VITALS: BP 143/65; PULSE 86; RESP 18; TEMP 35.5; BMI 51.5
--- NOTE | 2024-06-12 13:51 | PCM.WC.PN ---
History of Present Illness Date of Service: 06/12/24 Chief Complaint: Left anterior leg ulcer History of Wound: 58-year-old female with left leg wound secondary to trauma. Patient is diabetic controlled however she has elevated blood sugar secondary to bilateral ear infections. Subjective Subjective Mrs. Lang is a 58-year-old diabetic female presenting to the wound care center today for follow-up and evaluation of left leg full-thickness ulceration. She has left her amniotic skin graft substitute clean dry and intact. Blood sugar well-controlled. Denies constitutional symptoms. No other pedal complaints at this time. Objective Data Objective Data Vital Signs: Vital Signs Temp Pulse Resp BP O2 Del Method O2 Flow Rate 95.9 F L 86 18 143/65 H Room Air 2 06/12/24 13:39 06/12/24 13:39 06/12/24 13:39 06/12/24 13:39 06/05/24 10:34 05/20/24 00:38 Oxygen Flow Rate (L/min) 2 Oxygen Delivery Method Room Air Weight: 140.614 kg Body Mass Index (BMI) 51.5 Physical Exam Narrative Vascular: DP and PT pulse are palpable. CFT is brisk to all digits of the left lower extremity. Nonpitting edema appreciated left lower extremity. Skin temperature great is warm to warm from proximal ankle to distal digit bilateral. No focal increase appreciated. Evidence of hemosiderin deposits bilateral. Neurological: Light touch intact. Protective station is absent. Dermatological: Full-thickness ulceration to the left leg measuring 0.9 x 0.7 x 0.1 cm. Wound base is 100% granular nature. No drainage. No probe to bone. No sign of infection. Excisional debridement down to including subcutaneous tissue of the left proximal ulceration with a number 3 mm dermal curette without incident. Predebridement measurement is 0.7 x 0.7 x 0.1 cm. Postdebridement measurement is 0.9 x 0.7 x 0.1 cm. EpiFix 18 mm disc was applied to the left full-thickness ulceration with 100% use. Fifth application. The graft site was free and clear of any infection. The wound/skin graft substitute was dressed with nonadherent bandage secured in place with Steri-Strips followed by bolster dressing as well as a Silvestre wrap to left lower extremity. Musculoskeletal: The strength is 5 of 5 in all quads bilateral. No pain on palpation to the left full-thickness ulceration. No pain with calf compression. Debridement Note Debridement Note Debridement Free Text: Excisional debridement down to including subcutaneous tissue of the left proximal ulceration with a number 3 mm dermal curette without incident. Predebridement measurement is 0.7 x 0.7 x 0.1 cm. Postdebridement measurement is 0.9 x 0.7 x 0.1 cm. EpiFix 18 mm disc was applied to the left full-thickness ulceration with 100% use. Fifth application. The graft site was free and clear of any infection. The wound/skin graft substitute was dressed with nonadherent bandage secured in place with Steri-Strips followed by bolster dressing as well as a Silvestre wrap to left lower extremity. Post-Debridement Measurements and Additional Note: Post-Debridement Measurements/Treatment - Nurse 1 - General Ulcer Assessment Start: 05/22/24 13:20 Freq: Status: Active Protocol: .LOWEXT Activity Type Activity Date Activity User E-sign Co-sign Detail Recorded Client Recorded Date Recorded By Document 05/22/24 13:20 KW 0000 05/22/24 13:27 KW Document 05/29/24 10:16 KW k 05/29/24 10:22 KW Document 06/05/24 10:34 MT [id number] 06/05/24 10:36 MT Document 06/12/24 13:39 JF 000 06/12/24 13:43 JF 05/22/24 05/29/24 06/05/24 13:20 10:16 10:34 - Today's Visit Information Type of service Follow-up Visit Follow-up Visit (Physician/PRODUCT DEVELOPMENT SPECIALIST (Physician/PRODUCT DEVELOPMENT SPECIALIST ) ) Arrival Mode Ambulatory Ambulatory Accompanied by Conrad Patient Identification Verified (Name & Yes Yes ) Patient Requires Transmission-Based Precautions Finger Stick Blood Sugar(mg/dl) (if 180 104 indicated): Blood Sugar Stated by Stated by Patient Patient Height and Weight Body Mass Index (BMI) 51.5 51.5 51.5 BMI Classification Obese Obese Obese Vital Signs Temperature (97.8 F-99.1 F) 96.3 F L 97.0 F L 97 F L Temperature Source Temporal Temporal Temporal Pulse Rate (60-100) 75 66 80 Pulse Location Monitor Monitor Respiratory Rate (12-18) 20 H 18 18 Respiratory rate source Observation Observation Observation Oxygen Delivery Method Nasal Cannula Room Air Blood Pressure (90/60-120/80) 162/92 H 146/77 H 160/84 H Blood Pressure Mean (mm Hg) 115 100 109 Source Monitor Monitor Monitor Position Semi-Fowlers Semi-Fowlers Sitting Blood Pressure Location Left Forearm Left Forearm Left Arm History Since Last Visit- (Skip if this is Patient's initial visit) Have you changed medications since your No No last visit? Any new allergies or adverse reactions No No Had a fall/change in ADL's that may No No increase risk of falls Signs or symptoms of abuse and/or No No neglect since last visit Have you been in the hospital since your No No last visit? Has dressing in place as prescribed Yes Yes Yes Has compression in place as prescribed Yes No Yes Has offloadiing in place as prescribed Yes N/A Yes Experienced any changes in pain level or No No Yes management Left Footwear Regular Shoe Regular Shoe Regular Shoe Right Footwear Regular Shoe Regular Shoe Regular Shoe Pain Scale: 0-10 Numeric Is Patient Pain Free? Yes Yes Yes 06/12/24 13:39 WC - Today's Visit Information Type of service Follow-up Visit (Physician/PRODUCT DEVELOPMENT SPECIALIST ) Arrival Mode Ambulatory Accompanied by Patient Identification Verified (Name & Yes ) Patient Requires Transmission-Based No Precautions Finger Stick Blood Sugar(mg/dl) (if 227 indicated): Blood Sugar Stated by Patient Height and Weight Body Mass Index (BMI) 51.5 BMI Classification Obese Vital Signs Temperature (97.8 F-99.1 F) 95.9 F L Temperature Source Temporal Pulse Rate (60-100) 86 Pulse Location Monitor Respiratory Rate (12-18) 18 Respiratory rate source Observation Oxygen Delivery Method Blood Pressure (90/60-120/80) 143/65 H Blood Pressure Mean (mm Hg) 91 Source Monitor Position Semi-Fowlers Blood Pressure Location Left Arm History Since Last Visit- (Skip if this is Patient's initial visit) Have you changed medications since your No last visit? Any new allergies or adverse reactions No Had a fall/change in ADL's that may No increase risk of falls Signs or symptoms of abuse and/or No neglect since last visit Have you been in the hospital since your No last visit? Has dressing in place as prescribed Yes Has compression in place as prescribed No Has offloadiing in place as prescribed N/A Experienced any changes in pain level or No management Left Footwear Regular Shoe Right Footwear Regular Shoe Pain Scale: 0-10 Numeric Is Patient Pain Free? Yes WC - Nurse 1 - General Ulcer Measurement Start: 05/22/24 13:20 Freq: Status: Active Protocol: Activity Type Activity Date Activity User E-sign Co-sign Detail Recorded Client Recorded Date Recorded By Document 05/22/24 13:20 KW 0000 05/22/24 13:27 KW Document 05/29/24 10:16 KW k 05/29/24 10:22 KW Document 06/05/24 10:34 MT [id number] 06/05/24 10:36 MT Document 06/12/24 13:39 JF 000 06/12/24 13:43 JF 05/22/24 05/29/24 06/05/24 13:20 10:16 10:34 Wound Center Nurse 1 #12 LT TORRES proximal -Combined with other wound No -Current Size (cm) - Length 1 1.0 1.0 -Current Size (cm) - Width 1 0.9 0.7 -Current Size (cm) - Depth 0.2 0.2 0.2 -Total Square Cm 1 0.90 0.70 -Date of Last Picture (Recall this 05/22/24 field) -Photo Taken Yes -Epithelialization Small 1-33% -Tunneling No -Undermining/Tunneling No -Circular Undermining No -Exudate Amt Small Small Small -Exudate Type Serosanguineous Serosanguineous Serosanguineous -Wound Margin Distinct, Flat & Intact Flat & Intact Outline Attached -Granulation Amt Large (67-100%) Medium (34-66%) Small (1-33%) -Granulation Quality Red Red Avant -Slough/Fibrin Yes -Necrosis Amt Small (1-33%) Large (67-100%) -Necrotic Tissue Type Adherent Slough Adherent Slough -Structure Exposed N/A -Texture (Verónica-wound Skin Appearance) Assessed Assessed, Assessed Localized Edema -Moisture (Verónica-wound Skin Appearance) Assessed Assessed,Dry/ Assessed Scaly -Color (Verónica-wound Skin Appearance) Assessed Assessed Assessed -Temperature (Verónica-wound Skin No Abnormality No Abnormality No Abnormality Appearance) (Pt Warm) (Pt Warm) (Pt Warm) -Tenderness on Palpation (Verónica-wound No No Skin Appearance) -Ulcer Cleansing Soap and Water Wound Cleanser Soap and Water -Foul Odor after Cleansing No No No -Anesthetic Used 5% Lidocaine 5% Lidocaine Gel Gel Lower Limb Edema Present Yes Right Calf (cm) 55 Right Ankle (cm) 24 Left Calf (cm) 49.5 52.2 55 Left Ankle (cm) 23 24.0 24 06/12/24 13:39 Wound Center Nurse 1 #12 LT TORRES proximal -Combined with other wound No -Current Size (cm) - Length 0.7 -Current Size (cm) - Width 0.7 -Current Size (cm) - Depth 0.2 -Total Square Cm 0.49 -Date of Last Picture (Recall this field) -Photo Taken Yes -Epithelialization Medium 34-66% -Tunneling No -Undermining/Tunneling No -Circular Undermining No -Exudate Amt Small -Exudate Type Serosanguineous -Wound Margin Flat & Intact -Granulation Amt Large (67-100%) -Granulation Quality Red -Slough/Fibrin Yes -Necrosis Amt Small (1-33%) -Necrotic Tissue Type Adherent Slough -Structure Exposed N/A -Texture (Verónica-wound Skin Appearance) Assessed, Localized Edema -Moisture (Verónica-wound Skin Appearance) Assessed,Dry/ Scaly -Color (Verónica-wound Skin Appearance) Assessed -Temperature (Verónica-wound Skin No Abnormality Appearance) (Pt Warm) -Tenderness on Palpation (Verónica-wound No Skin Appearance) -Ulcer Cleansing Rinsed/ Irrigated with Saline -Foul Odor after Cleansing No -Anesthetic Used 5% Lidocaine Gel Lower Limb Edema Present Right Calf (cm) Right Ankle (cm) Left Calf (cm) Left Ankle (cm) - Nurse 2 - General Ulcer CM Notes Start: 05/22/24 13:20 Freq: Status: Active Protocol: Activity Type Activity Date Activity User E-sign Co-sign Detail Recorded Client Recorded Date Recorded By Document 05/22/24 13:49 JF 0000 05/22/24 13:51 Document 05/29/24 10:25 JF 000 05/29/24 10:28 Document 06/05/24 11:08 [facility] 06/05/24 11:14 05/22/24 05/29/24 06/05/24 13:49 10:25 11:08 Wound Center Nurse 2 #12 LT TORRES proximal -Time 13:49 10:25 11:08 -Correct Patient Yes Yes Yes -Correct Side, Site, Position Yes Yes Yes -Correct Procedure Yes Yes Yes -Procedure Performed Yes Yes Yes -Type of Procedure Debridement Debridement Debridement -Clinical Debridement Subcutaneous Subcutaneous Subcutaneous -Tissue Removed Subcutaneous Subcutaneous Subcutaneous -Post Debridement (cm) - Length 1.2 0.9 -Post Debridement (cm) - Width 0.9 0.7 -Post Debridement (cm) - Depth 0.2 0.1 -Total Square (Post) (cm) 1.08 0.63 -Area of Debridement (cm) - Length 1.2 0.9 -Area of Debridement (cm) - Width 0.9 0.7 -Total Square (Area) (cm) 1.08 0.63 -Tunneling No No No -Undermining/Tunneling No No No -Circular Undermining No No No -Wound/Ulcer Outcome Not Healed Not Healed Not Healed -Ulcer Cleansing Rinsed/ Rinsed/ Rinsed/ Irrigated with Irrigated with Irrigated with Saline Saline Saline -Foul Odor after Cleansing No No No -Bioengineered Tissue Yes Yes Yes -Type of Bioengineered Tissue Epifix 18mm Epifix 18mm Epifix 18mm Disc Disc Disc -Expiration Date 11/20/28 12/21/28 12/21/28 -Product Lot Number [id number] -Percent Used 100 100 10 -Lot number of Saline Used [id number] -Bleeding Controlled with Pressure Silver Nitrate Pressure -Treatment Response Procedure Procedure Procedure Tolerated Well Tolerated Well Tolerated Well -Offloading No No -Debridement - Subq, 1st 20sq cm No No No -Apply Skin Sub - 1st 25 sq cm - Legs 1 1 1 -Epifix 18mm Disc 3 3 Pain Scale: 0-10 Numeric Is Patient Pain Free? Yes Yes Yes WC - Nurse 3 - General Ulcer D/C NN Start: 05/22/24 13:20 Freq: Status: Active Protocol: Activity Type Activity Date Activity User E-sign Co-sign Detail Recorded Client Recorded Date Recorded By Document 05/22/24 14:04 [facility] [id number] 05/22/24 14:04 [facility] Document 05/29/24 10:40 KW ; 05/29/24 10:41 KW Document 06/05/24 11:26 [place] [id number] 06/05/24 11:28 MT 05/22/24 05/29/24 06/05/24 14:04 10:40 11:26 Wound Care Center Nurse 3 #12 LT TORRES proximal -Primary Dressing Applied Mepilex Border Mepilex Border Mepilex Border -Other Dressing epi; -Mepilex Border 1 1 1 Right -Compression Wrap Silvestre Wrap Silvestre Wrap -Tubular Bandage Single Layer -Size of Tubigrip Used Size F -Size F ($) 1 Left -Compression Wrap Silvestre Wrap Silvestre Wrap Silvestre Wrap -Tubular Bandage Single Layer Single Layer -Size of Tubigrip Used Size F Size F -Size F ($) 1 1 Treatment Response Procedure Tolerated Well Pain Scale: 0-10 Numeric Is Patient Pain Free? Yes Yes Yes WC - Visit Discharge Discharge Condition Stable Stable Ambulatory Status Ambulatory Ambulatory Transportation Private Auto Accompanied by aide Medication Reconcilliation completed & No provided to patient/care provider Clinical Summary of Care Provided Yes Assessment/Plan Assessment/Plan (1) Non-pressure chronic ulcer of other part of left lower leg with fat layer exposed: CODE(S): L97.822 - Non-pressure chronic ulcer of other part of left lower leg with fat layer exposed PLAN: Patient was examined and evaluated. All findings were discussed with the patient. All questions were answered to the patient's satisfaction. Excisional debridement down to including subcutaneous tissue of the left proximal ulceration with a number 3 mm dermal curette without incident. Predebridement measurement is 0.7 x 0.7 x 0.1 cm. Postdebridement measurement is 0.9 x 0.7 x 0.1 cm. EpiFix 18 mm disc was applied to the left full-thickness ulceration with 100% use. Fifth application. The graft site was free and clear of any infection. The wound/skin graft substitute was dressed with nonadherent bandage secured in place with Steri-Strips followed by bolster dressing as well as a Silvestre wrap to left lower extremity. Follow-up at the wound care center with Dr. Lewis in 1 week. (2) Chronic painful diabetic polyneuropathy: CODE(S): E11.42 - Type 2 diabetes mellitus with diabetic polyneuropathy (3) Other specified peripheral vascular diseases: CODE(S): I73.89 - Other specified peripheral vascular diseases
--- NOTE | 2024-06-19 11:24 | WC ---
PHOTO 06/12/24 LEFT TORRES
[2024-06-19 13:45] VITALS: BP 166/85; PULSE 68; RESP 18; TEMP 35.9; BMI 51.5
--- NOTE | 2024-06-19 14:08 | PCM.WC.PN ---
History of Present Illness Date of Service: 06/19/24 Chief Complaint: Left anterior leg ulcer History of Wound: 58-year-old female with left leg wound secondary to trauma. Patient is diabetic controlled however she has elevated blood sugar secondary to bilateral ear infections. Subjective Subjective Mrs. Lang is a 58-year-old diabetic female presenting to the wound care center today for follow-up and evaluation of left leg full-thickness ulceration. She has left her amniotic skin graft substitute clean dry and intact. Blood sugar well-controlled. Denies constitutional symptoms. No other pedal complaints at this time. Objective Data Objective Data Vital Signs: Vital Signs Temp Pulse Resp BP O2 Del Method O2 Flow Rate 96.6 F L 68 18 166/85 H Nasal Cannula 2 06/19/24 13:45 06/19/24 13:45 06/19/24 13:45 06/19/24 13:45 06/19/24 13:45 05/20/24 00:38 Oxygen Flow Rate (L/min) 2 Oxygen Delivery Method Nasal Cannula Weight: 140.614 kg Body Mass Index (BMI) 51.5 Physical Exam Narrative Vascular: DP and PT pulse are palpable. CFT is brisk to all digits of the left lower extremity. Nonpitting edema appreciated left lower extremity. Skin temperature great is warm to warm from proximal ankle to distal digit bilateral. No focal increase appreciated. Evidence of hemosiderin deposits bilateral. Neurological: Light touch intact. Protective station is absent. Dermatological: Full-thickness ulceration to the left leg measuring 0.8 x 0.6 x 0.1 cm. Wound base is 100% granular nature. No drainage. No probe to bone. No sign of infection. Excisional debridement down to including subcutaneous tissue of the left proximal ulceration with a number 3 mm dermal curette without incident. Predebridement measurement is 0.7 x 0.5 x 0.1 cm. Postdebridement measurement is 0.8 x 0.6 x 0.1 cm. EpiFix 18 mm disc was applied to the left full-thickness ulceration with 100% use. 6th application. The graft site was free and clear of any infection. The wound/skin graft substitute was dressed with nonadherent bandage secured in place with Steri-Strips followed by bolster dressing as well as a Silvestre wrap to left lower extremity. Musculoskeletal: The strength is 5 of 5 in all quads bilateral. No pain on palpation to the left full-thickness ulceration. No pain with calf compression. Debridement Note Debridement Note Debridement Free Text: Excisional debridement down to including subcutaneous tissue of the left proximal ulceration with a number 3 mm dermal curette without incident. Predebridement measurement is 0.7 x 0.5 x 0.1 cm. Postdebridement measurement is 0.8 x 0.6 x 0.1 cm. EpiFix 18 mm disc was applied to the left full-thickness ulceration with 100% use. 6th application. The graft site was free and clear of any infection. The wound/skin graft substitute was dressed with nonadherent bandage secured in place with Steri-Strips followed by bolster dressing as well as a Silvestre wrap to left lower extremity. Post-Debridement Measurements and Additional Note: Post-Debridement Measurements/Treatment - Nurse 1 - General Ulcer Assessment Start: 05/22/24 13:20 Freq: Status: Active Protocol: NILO.[email or web address] Activity Type Activity Date Activity User E-sign Co-sign Detail Recorded Client Recorded Date Recorded By Document 05/22/24 13:20 KW 0000 05/22/24 13:27 KW Document 05/29/24 10:16 KW k 05/29/24 10:22 KW Document 06/05/24 10:34 [id number] 06/05/24 10:36 MT Document 06/12/24 13:39 JF 000 06/12/24 13:43 JF Document 06/19/24 13:45 KW j 06/19/24 13:46 KW Edit Result 06/19/24 13:45 KW (1) j 06/19/24 13:47 KW (1) Pulse Rate (60-100) => 68 Blood Pressure (90/60-120/80) => 166/85 H Blood Pressure Mean (mm Hg) => 112 05/22/24 05/29/24 06/05/24 13:20 10:16 10:34 - Today's Visit Information Type of service Follow-up Visit Follow-up Visit (Physician/FORM SETTER SUPERVISOR (Physician/FORM SETTER SUPERVISOR ) ) Arrival Mode Ambulatory Ambulatory Accompanied by Conrad Patient Identification Verified (Name & Yes Yes ) Patient Requires Transmission-Based Precautions Finger Stick Blood Sugar(mg/dl) (if 180 104 indicated): Blood Sugar Stated by Stated by Patient Patient Height and Weight Body Mass Index (BMI) 51.5 51.5 51.5 BMI Classification Obese Obese Obese Vital Signs Temperature (97.8 F-99.1 F) 96.3 F L 97.0 F L 97 F L Temperature Source Temporal Temporal Temporal Pulse Rate (60-100) 75 66 80 Pulse Location Monitor Monitor Respiratory Rate (12-18) 20 H 18 18 Respiratory rate source Observation Observation Observation Oxygen Delivery Method Nasal Cannula Room Air Blood Pressure (90/60-120/80) 162/92 H 146/77 H 160/84 H Blood Pressure Mean (mm Hg) 115 100 109 Source Monitor Monitor Monitor Position Semi-Fowlers Semi-Fowlers Sitting Blood Pressure Location Left Forearm Left Forearm Left Arm History Since Last Visit- (Skip if this is Patient's initial visit) Have you changed medications since your No No last visit? Any new allergies or adverse reactions No No Had a fall/change in ADL's that may No No increase risk of falls Signs or symptoms of abuse and/or No No neglect since last visit Have you been in the hospital since your No No last visit? Has dressing in place as prescribed Yes Yes Yes Has compression in place as prescribed Yes No Yes Has offloadiing in place as prescribed Yes N/A Yes Experienced any changes in pain level or No No Yes management Left Footwear Regular Shoe Regular Shoe Regular Shoe Right Footwear Regular Shoe Regular Shoe Regular Shoe Pain Scale: 0-10 Numeric Is Patient Pain Free? Yes Yes Yes 06/12/24 06/19/24 13:39 13:45 WC - Today's Visit Information Type of service Follow-up Visit Follow-up Visit (Physician/FORM SETTER SUPERVISOR (Physician/FORM SETTER SUPERVISOR ) ) Arrival Mode Ambulatory Ambulatory Accompanied by Patient Identification Verified (Name & Yes Yes ) Patient Requires Transmission-Based No Precautions Finger Stick Blood Sugar(mg/dl) (if 227 indicated): Blood Sugar Stated by Patient Height and Weight Body Mass Index (BMI) 51.5 51.5 BMI Classification Obese Obese Vital Signs Temperature (97.8 F-99.1 F) 95.9 F L 96.6 F L Temperature Source Temporal Temporal Pulse Rate (60-100) 86 68 Pulse Location Monitor Monitor Respiratory Rate (12-18) 18 18 Respiratory rate source Observation Ventilator Oxygen Delivery Method Nasal Cannula Blood Pressure (90/60-120/80) 143/65 H 166/85 H Blood Pressure Mean (mm Hg) 91 112 Source Monitor Monitor Position Semi-Fowlers Semi-Fowlers Blood Pressure Location Left Arm Right Forearm History Since Last Visit- (Skip if this is Patient's initial visit) Have you changed medications since your No No last visit? Any new allergies or adverse reactions No No Had a fall/change in ADL's that may No No increase risk of falls Signs or symptoms of abuse and/or No No neglect since last visit Have you been in the hospital since your No No last visit? Has dressing in place as prescribed Yes Yes Has compression in place as prescribed No Yes Has offloadiing in place as prescribed N/A N/A Experienced any changes in pain level or No No management Left Footwear Regular Shoe Regular Shoe Right Footwear Regular Shoe Regular Shoe Pain Scale: 0-10 Numeric Is Patient Pain Free? Yes Yes WC - Nurse 1 - General Ulcer Measurement Start: 05/22/24 13:20 Freq: Status: Active Protocol: Activity Type Activity Date Activity User E-sign Co-sign Detail Recorded Client Recorded Date Recorded By Document 05/22/24 13:20 KW 0000 05/22/24 13:27 KW Document 05/29/24 10:16 KW k 05/29/24 10:22 KW Document 06/05/24 10:34 [id number] 06/05/24 10:36 HI Document 06/12/24 13:39 JF 000 06/12/24 13:43 JF Document 06/19/24 13:45 KW hkj 06/19/24 13:46 KW 05/22/24 05/29/24 06/05/24 13:20 10:16 10:34 Wound Center Nurse 1 #12 LT TORRES proximal -Combined with other wound No -Current Size (cm) - Length 1 1.0 1.0 -Current Size (cm) - Width 1 0.9 0.7 -Current Size (cm) - Depth 0.2 0.2 0.2 -Total Square Cm 1 0.90 0.70 -Date of Last Picture (Recall this 05/22/24 field) -Photo Taken Yes -Epithelialization Small 1-33% -Tunneling No -Undermining/Tunneling No -Circular Undermining No -Exudate Amt Small Small Small -Exudate Type Serosanguineous Serosanguineous Serosanguineous -Wound Margin Distinct, Flat & Intact Flat & Intact Outline Attached -Granulation Amt Large (67-100%) Medium (34-66%) Small (1-33%) -Granulation Quality Red Red Tibes -Slough/Fibrin Yes -Necrosis Amt Small (1-33%) Large (67-100%) -Necrotic Tissue Type Adherent Slough Adherent Slough -Structure Exposed N/A -Texture (Verónica-wound Skin Appearance) Assessed Assessed, Assessed Localized Edema -Moisture (Verónica-wound Skin Appearance) Assessed Assessed,Dry/ Assessed Scaly -Color (Verónica-wound Skin Appearance) Assessed Assessed Assessed -Temperature (Verónica-wound Skin No Abnormality No Abnormality No Abnormality Appearance) (Pt Warm) (Pt Warm) (Pt Warm) -Tenderness on Palpation (Verónica-wound No No Skin Appearance) -Ulcer Cleansing Soap and Water Wound Cleanser Soap and Water -Foul Odor after Cleansing No No No -Anesthetic Used 5% Lidocaine 5% Lidocaine Gel Gel Lower Limb Edema Present Yes Right Calf (cm) 55 Right Ankle (cm) 24 Left Calf (cm) 49.5 52.2 55 Left Ankle (cm) 23 24.0 24 06/12/24 06/19/24 13:39 13:45 Wound Center Nurse 1 #12 LT TORRES proximal -Combined with other wound No -Current Size (cm) - Length 0.7 0.9 -Current Size (cm) - Width 0.7 0.6 -Current Size (cm) - Depth 0.2 0.3 -Total Square Cm 0.49 0.54 -Date of Last Picture (Recall this field) -Photo Taken Yes -Epithelialization Medium 34-66% -Tunneling No -Undermining/Tunneling No -Circular Undermining No -Exudate Amt Small Small -Exudate Type Serosanguineous Serosanguineous -Wound Margin Flat & Intact Distinct, Outline Attached -Granulation Amt Large (67-100%) Large (67-100%) -Granulation Quality Red Red -Slough/Fibrin Yes -Necrosis Amt Small (1-33%) Small (1-33%) -Necrotic Tissue Type Adherent Slough Adherent Slough -Structure Exposed N/A -Texture (Verónica-wound Skin Appearance) Assessed, Assessed Localized Edema -Moisture (Verónica-wound Skin Appearance) Assessed,Dry/ Assessed Scaly -Color (Verónica-wound Skin Appearance) Assessed Assessed -Temperature (Verónica-wound Skin No Abnormality No Abnormality Appearance) (Pt Warm) (Pt Warm) -Tenderness on Palpation (Verónica-wound No No Skin Appearance) -Ulcer Cleansing Rinsed/ Soap and Water Irrigated with Saline -Foul Odor after Cleansing No No -Anesthetic Used 5% Lidocaine 5% Lidocaine Gel Gel Lower Limb Edema Present Right Calf (cm) Right Ankle (cm) Left Calf (cm) Left Ankle (cm) WC - Nurse 2 - General Ulcer CM Notes Start: 05/22/24 13:20 Freq: Status: Active Protocol: Activity Type Activity Date Activity User E-sign Co-sign Detail Recorded Client Recorded Date Recorded By Document 05/22/24 13:49 JF 0000 05/22/24 13:51 JF Document 05/29/24 10:25 JF 000 05/29/24 10:28 JF Document 06/05/24 11:08 GM wc 06/05/24 11:14 GM Edit Result 06/05/24 11:08 GM (1) 1 06/13/24 08:43 DS Document 06/12/24 13:50 JF 000 06/12/24 13:51 JF Document 06/19/24 13:55 JF 0000 06/19/24 13:58 JF (1) #12 LT TORRES proximal - Epifix 18mm Disc => 3 05/22/24 05/29/24 06/05/24 13:49 10:25 11:08 Wound Center Nurse 2 #12 LT TORRES proximal -Time 13:49 10:25 11:08 -Correct Patient Yes Yes Yes -Correct Side, Site, Position Yes Yes Yes -Correct Procedure Yes Yes Yes -Procedure Performed Yes Yes Yes -Type of Procedure Debridement Debridement Debridement -Clinical Debridement Subcutaneous Subcutaneous Subcutaneous -Tissue Removed Subcutaneous Subcutaneous Subcutaneous -Post Debridement (cm) - Length 1.2 0.9 -Post Debridement (cm) - Width 0.9 0.7 -Post Debridement (cm) - Depth 0.2 0.1 -Total Square (Post) (cm) 1.08 0.63 -Area of Debridement (cm) - Length 1.2 0.9 -Area of Debridement (cm) - Width 0.9 0.7 -Total Square (Area) (cm) 1.08 0.63 -Tunneling No No No -Undermining/Tunneling No No No -Circular Undermining No No No -Wound/Ulcer Outcome Not Healed Not Healed Not Healed -Ulcer Cleansing Rinsed/ Rinsed/ Rinsed/ Irrigated with Irrigated with Irrigated with Saline Saline Saline -Foul Odor after Cleansing No No No -Bioengineered Tissue Yes Yes Yes -Type of Bioengineered Tissue Epifix 18mm Epifix 18mm Epifix 18mm Disc Disc Disc -Expiration Date 11/20/28 12/21/28 12/21/28 -Product Lot Number [id number] -Percent Used 100 100 10 -Lot number of Saline Used [id number] -Bleeding Controlled with Pressure Silver Nitrate Pressure -Treatment Response Procedure Procedure Procedure Tolerated Well Tolerated Well Tolerated Well -Offloading No No -Debridement - Subq, 1st 20sq cm No No No -Apply Skin Sub - 1st 25 sq cm - Legs 1 1 1 -Epifix 18mm Disc 3 3 3 Pain Scale: 0-10 Numeric Is Patient Pain Free? Yes Yes Yes 06/12/24 06/19/24 13:50 13:55 Wound Center Nurse 2 #12 LT TORRES proximal -Time 13:50 13:56 -Correct Patient Yes Yes -Correct Side, Site, Position Yes Yes -Correct Procedure Yes Yes -Procedure Performed Yes Yes -Type of Procedure Debridement Debridement -Clinical Debridement Subcutaneous Subcutaneous -Tissue Removed Subcutaneous Subcutaneous -Post Debridement (cm) - Length 0.9 0.8 -Post Debridement (cm) - Width 0.7 0.6 -Post Debridement (cm) - Depth 0.7 0.1 -Total Square (Post) (cm) 0.63 0.48 -Area of Debridement (cm) - Length 0.9 0.8 -Area of Debridement (cm) - Width 0.7 0.6 -Total Square (Area) (cm) 0.63 0.48 -Tunneling No No -Undermining/Tunneling No No -Circular Undermining No No -Wound/Ulcer Outcome Not Healed Not Healed -Ulcer Cleansing Rinsed/ Rinsed/ Irrigated with Irrigated with Saline Saline -Foul Odor after Cleansing No No -Bioengineered Tissue Yes Yes -Type of Bioengineered Tissue Epifix 18mm Epifix 18mm Disc Disc -Expiration Date 12/21/28 12/21/28 -Product Lot Number [id number] -Percent Used 100 100 -Lot number of Saline Used [id number] -Bleeding Controlled with Pressure Pressure -Treatment Response Procedure Procedure Tolerated Well Tolerated Well -Offloading No No -Debridement - Subq, 1st 20sq cm No No -Apply Skin Sub - 1st 25 sq cm - Legs 1 1 -Epifix 18mm Disc 3 3 Pain Scale: 0-10 Numeric Is Patient Pain Free? Yes Yes WC - Nurse 3 - General Ulcer D/C NN Start: 05/22/24 13:20 Freq: Status: Active Protocol: Activity Type Activity Date Activity User E-sign Co-sign Detail Recorded Client Recorded Date Recorded By Document 05/22/24 14:04 [facility] [id number] 05/22/24 14:04 BM Document 05/29/24 10:40 KW ; 05/29/24 10:41 KW Document 06/05/24 11:26 MT [id number] 06/05/24 11:28 MT Document 06/12/24 13:54 KW d 06/12/24 13:55 KW Document 06/19/24 13:59 JF 0000 06/19/24 14:00 JF 05/22/24 05/29/24 06/05/24 14:04 10:40 11:26 Wound Care Center Nurse 3 #12 LT TORRES proximal -Ulcer Cleansing -Foul Odor after Cleansing -Primary Dressing Applied Mepilex Border Mepilex Border Mepilex Border -Other Dressing epi; -Mepilex Border 1 1 1 Right -Compression Wrap Silvestre Wrap Silvestre Wrap -Tubular Bandage Single Layer -Size of Tubigrip Used Size F -Size F ($) 1 Left -Compression Wrap Silvestre Wrap Silvestre Wrap Silvestre Wrap -Tubular Bandage Single Layer Single Layer -Size of Tubigrip Used Size F Size F -Size F ($) 1 1 joseph -Compression Wrap Treatment Response Procedure Tolerated Well Pain Scale: 0-10 Numeric Is Patient Pain Free? Yes Yes Yes WC - Visit Discharge Discharge Condition Stable Stable Ambulatory Status Ambulatory Ambulatory Transportation Private Auto Accompanied by aide Medication Reconcilliation completed & No provided to patient/care provider Clinical Summary of Care Provided Yes 06/12/24 06/19/24 13:54 13:59 Wound Care Center Nurse 3 #12 LT TORRES proximal -Ulcer Cleansing Rinsed/ Irrigated with Saline -Foul Odor after Cleansing No -Primary Dressing Applied Mepilex Border Mepilex Border -Other Dressing -Mepilex Border 1 1 Right -Compression Wrap -Tubular Bandage -Size of Tubigrip Used -Size F ($) Left -Compression Wrap Silvestre Wrap -Tubular Bandage -Size of Tubigrip Used -Size F ($) joseph -Compression Wrap Silvestre Wrap Treatment Response Pain Scale: 0-10 Numeric Is Patient Pain Free? Yes Yes WC - Visit Discharge Discharge Condition Stable Ambulatory Status Ambulatory Transportation Private Auto Accompanied by Medication Reconcilliation completed & Yes provided to patient/care provider Clinical Summary of Care Provided Yes Assessment/Plan Assessment/Plan (1) Non-pressure chronic ulcer of other part of left lower leg with fat layer exposed: CODE(S): L97.822 - Non-pressure chronic ulcer of other part of left lower leg with fat layer exposed PLAN: Patient was examined and evaluated. All findings were discussed with the patient. All questions were answered to the patient's satisfaction. Excisional debridement down to including subcutaneous tissue of the left proximal ulceration with a number 3 mm dermal curette without incident. Predebridement measurement is 0.7 x 0.5 x 0.1 cm. Postdebridement measurement is 0.8 x 0.6 x 0.1 cm. EpiFix 18 mm disc was applied to the left full-thickness ulceration with 100% use. 6th application. The graft site was free and clear of any infection. The wound/skin graft substitute was dressed with nonadherent bandage secured in place with Steri-Strips followed by bolster dressing as well as a Silvestre wrap to left lower extremity. Follow-up at the wound care center with Dr. Lewis in 1 week. (2) Other specified peripheral vascular diseases: CODE(S): I73.89 - Other specified peripheral vascular diseases
== END 2024-06-19 23:59 | disposition home or self-care (01) ==
LOC: WC 13:30
PROVIDERS: PCP Internal Medicine; Referring Provider Internal Medicine; Visit Provider Podiatrist Foot & Ankle Surgery
DX: E11.622 Type 2 diabetes mellitus with other skin ulcer (principal); L97.822 Non-pressure chronic ulcer of other part of left lower leg with fat layer exposed; E11.65 Type 2 diabetes mellitus with hyperglycemia; E11.42 Type 2 diabetes mellitus with diabetic polyneuropathy; I87.2 Venous insufficiency (chronic) (peripheral); I73.89 Other specified peripheral vascular diseases
CPT/HCPCS: 15271; Q4186

== ENCOUNTER 2024-07-17 13:45 | Outpatient (RCR) | payer MEDICAID, SELFPAY ==
[2024-06-20 00:19] VITALS: BP 167/87; PULSE 74; RESP 20; TEMP 36.5; BMI 51.5
[2024-06-26 13:33] VITALS: BP 169/76; PULSE 78; RESP 18; TEMP 36.6; BMI 51.5
--- NOTE | 2024-06-26 16:24 | PN.PCM_ITS ---
History of Present Illness Date of Service: 06/26/24 Chief Complaint: Left anterior leg ulcer History of Wound: 58-year-old female with left leg wound secondary to trauma. Patient is diabetic controlled however she has elevated blood sugar secondary to bilateral ear infections. Subjective Subjective Mrs. Lang is a 58-year-old diabetic female presenting to the wound care center today for follow-up and evaluation of left leg full-thickness ulceration. She has left her amniotic skin graft substitute clean dry and intact. Blood sugar well-controlled. Denies constitutional symptoms. No other pedal complaints at this time. Objective Data Objective Data Vital Signs: Vital Signs Temp Pulse Resp BP O2 Flow Rate 97.8 F 78 18 169/76 H 2 06/26/24 13:33 06/26/24 13:33 06/26/24 13:33 06/26/24 13:33 06/20/24 00:19 Oxygen Flow Rate (L/min) 2 Weight: 140.614 kg Body Mass Index (BMI) 51.5 Physical Exam Narrative Vascular: DP and PT pulse are palpable. CFT is brisk to all digits of the left lower extremity. Nonpitting edema appreciated left lower extremity. Skin temperature great is warm to warm from proximal ankle to distal digit bilateral. No focal increase appreciated. Evidence of hemosiderin deposits bilateral. Neurological: Light touch intact. Protective station is absent. Dermatological: Full-thickness ulceration to the left leg measuring 0.9 x 0.6 x 0.1 cm. Wound base is 100% granular nature. No drainage. No probe to bone. No sign of infection. Excisional debridement down to including subcutaneous tissue of the left proximal ulceration with a number 3 mm dermal curette without incident. Predebridement measurement is 0.8 x 0.5 x 0.1 cm. Postdebridement measurement is 0.9 x 0.6 x 0.1 cm. EpiFix 18 mm disc was applied to the left full-thickness ulceration with 100% use. 7th application. The graft site was free and clear of any infection. The wound/skin graft substitute was dressed with nonadherent bandage secured in place with Steri-Strips followed by bolster dressing as well as a Silvestre wrap to left lower extremity. Musculoskeletal: The strength is 5 of 5 in all quads bilateral. No pain on palpation to the left full-thickness ulceration. No pain with calf compression. Debridement Note Debridement Note Debridement Free Text: without incident. Predebridement measurement is 0.8 x 0.5 x 0.1 cm. Postdebridement measurement is 0.9 x 0.6 x 0.1 cm. EpiFix 18 mm disc was applied to the left full-thickness ulceration with 100% use. 7th application. The graft site was free and clear of any infection. The wound/skin graft substitute was dressed with nonadherent bandage secured in place with Steri-Strips followed by bolster dressing as well as a Silvestre wrap to left lower extremity. Post-Debridement Measurements and Additional Note: Post-Debridement Measurements/Treatment - Nurse 1 - General Ulcer Assessment Start: 06/26/24 13:33 Freq: Status: Active Protocol: PERRY Activity Type Activity Date Activity User E-sign Co-sign Detail Recorded Client Recorded Date Recorded By Document 06/26/24 13:33 DL [id number] 06/26/24 13:38 DL Edit Result 06/26/24 13:33 DL (1) 10.10.25.7 06/26/24 13:39 DL (1) Pulse Rate (60-100) => 78 Pulse Location => Monitor Blood Pressure (90/60-120/80) => 169/76 H Blood Pressure Mean (mm Hg) => 107 06/26/24 13:33 - Today's Visit Information Type of service Follow-up Visit (Physician/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 CENTER TRAINER ) Arrival Mode Ambulatory Transfer Assistance None Patient Identification Verified (Name & Yes ) Patient Requires Transmission-Based No Precautions Height and Weight Body Mass Index (BMI) 51.5 BMI Classification Obese Vital Signs Temperature (97.8 F-99.1 F) 97.8 F Temperature Source Temporal Pulse Rate (60-100) 78 Pulse Location Monitor Respiratory Rate (12-18) 18 Respiratory rate source Observation Blood Pressure (90/60-120/80) 169/76 H Blood Pressure Mean (mm Hg) 107 History Since Last Visit- (Skip if this is Patient's initial visit) Have you changed medications since your No last visit? Any new allergies or adverse reactions No Had a fall/change in ADL's that may No increase risk of falls Signs or symptoms of abuse and/or No neglect since last visit Have you been in the hospital since your No last visit? Has dressing in place as prescribed Yes Has compression in place as prescribed Yes Has offloadiing in place as prescribed N/A Experienced any changes in pain level or No management Pain Scale: 0-10 Numeric Is Patient Pain Free? Yes WC - Nurse 1 - General Ulcer Measurement Start: 06/26/24 13:33 Freq: Status: Active Protocol: Activity Type Activity Date Activity User E-sign Co-sign Detail Recorded Client Recorded Date Recorded By Document 06/26/24 13:33 DL [email or web address] 06/26/24 13:38 DL 06/26/24 13:33 Wound Center Nurse 1 #12 LT TORRES proximal -Current Size (cm) - Length 0.8 -Current Size (cm) - Width 0.5 -Current Size (cm) - Depth 0.2 -Total Square Cm 0.40 -Photo Taken Yes -Exudate Amt Small -Exudate Type Serosanguineous -Wound Margin Distinct, Outline Attached -Granulation Amt Large (67-100%) -Granulation Quality Red -Necrosis Amt None Present (0 %) -Structure Exposed N/A -Texture (Verónica-wound Skin Appearance) Scarring -Moisture (Verónica-wound Skin Appearance) No Abnormality -Color (Verónica-wound Skin Appearance) Hemosiderin Staining -Temperature (Verónica-wound Skin No Abnormality Appearance) (Pt Warm) -Ulcer Cleansing Soap and Water -Foul Odor after Cleansing No -Anesthetic Used 5% Lidocaine Gel WC - Nurse 2 - General Ulcer CM Notes Start: 06/26/24 13:33 Freq: Status: Active Protocol: Activity Type Activity Date Activity User E-sign Co-sign Detail Recorded Client Recorded Date Recorded By Document 06/26/24 13:54 JF 000 06/26/24 13:58 JF 06/26/24 13:54 Wound Center Nurse 2 -Time 13:55 -Correct Patient Yes -Correct Side, Site, Position Yes -Correct Procedure Yes -Procedure Performed Yes -Type of Procedure Debridement -Clinical Debridement Subcutaneous -Tissue Removed Subcutaneous -Post Debridement (cm) - Length 0.9 -Post Debridement (cm) - Width 0.6 -Post Debridement (cm) - Depth 0.1 -Total Square (Post) (cm) 0.54 -Area of Debridement (cm) - Length 0.9 -Area of Debridement (cm) - Width 0.6 -Total Square (Area) (cm) 0.54 -Tunneling No -Undermining/Tunneling No -Circular Undermining No -Wound/Ulcer Outcome Not Healed -Ulcer Cleansing Rinsed/ Irrigated with Saline -Foul Odor after Cleansing No -Bioengineered Tissue Yes -Type of Bioengineered Tissue Epifix 18mm Disc -Expiration Date 12/21/28 -Product Lot Number [id number] -Percent Used 100 -Lot number of Saline Used [id number] -Bleeding Controlled with Pressure -Treatment Response Procedure Tolerated Well -Offloading No -Debridement - Subq, 1st 20sq cm No -Apply Skin Sub - 1st 25 sq cm - Legs 1 -Epifix 18mm Disc 3 Pain Scale: 0-10 Numeric Is Patient Pain Free? Yes - Nurse 3 - General Ulcer D/C NN Start: 06/26/24 13:33 Freq: Status: Active Protocol: Activity Type Activity Date Activity User E-sign Co-sign Detail Recorded Client Recorded Date Recorded By Document 06/26/24 14:15 KW fcg 06/26/24 14:15 KW 06/26/24 14:15 Wound Care Center Nurse 3 #12 LT TORRES proximal -Primary Dressing Applied Mepilex Border -Mepilex Border 1 Left -Compression Wrap Silvestre Wrap Pain Scale: 0-10 Numeric Is Patient Pain Free? Yes WC - Visit Discharge Discharge Condition Stable Ambulatory Status Ambulatory Assessment/Plan Assessment/Plan (1) Non-pressure chronic ulcer of other part of left lower leg with fat layer exposed: CODE(S): L97.822 - Non-pressure chronic ulcer of other part of left lower leg with fat layer exposed PLAN: Patient was examined and evaluated. All findings were discussed with the patient. All questions were answered to the patient's satisfaction. without incident. Predebridement measurement is 0.8 x 0.5 x 0.1 cm. Postdebridement measurement is 0.9 x 0.6 x 0.1 cm. EpiFix 18 mm disc was applied to the left full-thickness ulceration with 100% use. 7th application. The graft site was free and clear of any infection. The wound/skin graft substitute was dressed with nonadherent bandage secured in place with Steri-Strips followed by bolster dressing as well as a Silvestre wrap to left lower extremity. Follow-up at the wound care center with Dr. Lewis in 1 week. (2) Other specified peripheral vascular diseases: CODE(S): I73.89 - Other specified peripheral vascular diseases
[2024-07-03 13:54] VITALS: BP 129/67; PULSE 74; RESP 18; BMI 51.5
--- NOTE | 2024-07-03 16:54 | PN.PCM_ITS ---
History of Present Illness Date of Service: 07/03/24 Chief Complaint: Left anterior leg ulcer History of Wound: 58-year-old female with left leg wound secondary to trauma. Patient is diabetic controlled however she has elevated blood sugar secondary to bilateral ear infections. Subjective Subjective Mrs. Lang is a 58-year-old diabetic female presenting to the wound care center today for follow-up and evaluation of left leg full-thickness ulceration. She has left her amniotic skin graft substitute clean dry and intact. Blood sugar well-controlled. Denies constitutional symptoms. No other pedal complaints at this time. Objective Data Objective Data Vital Signs: Vital Signs Temp Pulse Resp BP O2 Del Method O2 Flow Rate 97.8 F 74 18 129/67 H Nasal Cannula 3 06/26/24 13:33 07/03/24 13:54 07/03/24 13:54 07/03/24 13:54 07/03/24 13:54 07/03/24 13:54 Oxygen Flow Rate (L/min) 3 Oxygen Delivery Method Nasal Cannula Weight: 140.614 kg Body Mass Index (BMI) 51.5 Physical Exam Narrative Vascular: DP and PT pulse are palpable. CFT is brisk to all digits of the left lower extremity. Nonpitting edema appreciated left lower extremity. Skin temperature great is warm to warm from proximal ankle to distal digit bilateral. No focal increase appreciated. Evidence of hemosiderin deposits bilateral. Neurological: Light touch intact. Protective station is absent. Dermatological: Full-thickness ulceration to the left leg measuring 0.7 x 0.5 x 0.1 cm. Wound base is 100% granular nature. No drainage. No probe to bone. No sign of infection. Excisional debridement down to including subcutaneous tissue of the left proximal ulceration with a number 3 mm dermal curette without incident. Predebridement measurement is sanguinous crust. Postdebridement measurement is 0.7 x 0.5 x 0.1 cm. EpiFix 18 mm disc was applied to the left full-thickness ulceration with 100% use. 8th application. The graft site was free and clear of any infection. The wound/skin graft substitute was dressed with nonadherent bandage secured in place with Steri-Strips followed by bolster dressing as well as a Silvestre wrap to left lower extremity. Musculoskeletal: The strength is 5 of 5 in all quads bilateral. No pain on palpation to the left full-thickness ulceration. No pain with calf compression. Debridement Note Debridement Note Debridement Free Text: Excisional debridement down to including subcutaneous tissue of the left proximal ulceration with a number 3 mm dermal curette without incident. Predebridement measurement is sanguinous crust. Postdebridement measurement is 0.7 x 0.5 x 0.1 cm. EpiFix 18 mm disc was applied to the left full-thickness ulceration with 100% use. 8th application. The graft site was free and clear of any infection. The wound/skin graft substitute was dressed with nonadherent bandage secured in place with Steri-Strips followed by bolster dressing as well as a Silvestre wrap to left lower extremity. Post-Debridement Measurements and Additional Note: Post-Debridement Measurements/Treatment - Nurse 1 - General Ulcer Assessment Start: 06/26/24 13:33 Freq: Status: Active Protocol: LOWEXBernice Activity Type Activity Date Activity User E-sign Co-sign Detail Recorded Client Recorded Date Recorded By Document 06/26/24 13:33 DL 10.10.25.7 06/26/24 13:38 DL Edit Result 06/26/24 13:33 DL (1) 10.10.25.7 06/26/24 13:39 DL Document 07/03/24 13:54 MT [id number] 07/03/24 14:05 MT (1) Pulse Rate (60-100) => 78 Pulse Location => Monitor Blood Pressure (90/60-120/80) => 169/76 H Blood Pressure Mean (mm Hg) => 107 06/26/24 07/03/24 13:33 13:54 - Today's Visit Information Type of service Follow-up Visit Follow-up Visit (Physician/FULL SERVICE SUPERVISOR (Physician/FULL SERVICE SUPERVISOR ) ) Arrival Mode Ambulatory Ambulatory Transfer Assistance None None Patient Identification Verified (Name & Yes Yes ) Patient Requires Transmission-Based No No Precautions Height and Weight Body Mass Index (BMI) 51.5 51.5 BMI Classification Obese Obese Vital Signs Temperature (97.8 F-99.1 F) 97.8 F Temperature Source Temporal Pulse Rate (60-100) 78 74 Pulse Location Monitor Monitor Respiratory Rate (12-18) 18 18 Respiratory rate source Observation Observation Oxygen Delivery Method Nasal Cannula O2 L/MIN (L/min) 3 Blood Pressure (90/60-120/80) 169/76 H 129/67 H Blood Pressure Mean (mm Hg) 107 87 Source Monitor Position Sitting Blood Pressure Location Left Arm History Since Last Visit- (Skip if this is Patient's initial visit) Have you changed medications since your No No last visit? Any new allergies or adverse reactions No No Had a fall/change in ADL's that may No No increase risk of falls Signs or symptoms of abuse and/or No No neglect since last visit Have you been in the hospital since your No No last visit? Has dressing in place as prescribed Yes Yes Has compression in place as prescribed Yes Yes Has offloadiing in place as prescribed N/A N/A Experienced any changes in pain level or No No management Left Footwear Regular Shoe Right Footwear Regular Shoe Pain Scale: 0-10 Numeric Is Patient Pain Free? Yes Yes WC - Nurse 1 - General Ulcer Measurement Start: 06/26/24 13:33 Freq: Status: Active Protocol: Activity Type Activity Date Activity User E-sign Co-sign Detail Recorded Client Recorded Date Recorded By Document 06/26/24 13:33 DL 10.10.25.7 06/26/24 13:38 DL Document 07/03/24 13:54 MO [id number] 07/03/24 14:05 MO 06/26/24 07/03/24 13:33 13:54 Wound Center Nurse 1 #12 LT TORRES proximal -Combined with other wound No -Current Size (cm) - Length 0.8 0.8 -Current Size (cm) - Width 0.5 0.6 -Current Size (cm) - Depth 0.2 0.1 -Total Square Cm 0.40 0.48 -Photo Taken Yes -Tunneling No -Undermining/Tunneling No -Circular Undermining No -Exudate Amt Small Small -Exudate Type Serosanguineous Serosanguineous -Wound Margin Distinct, Distinct, Outline Outline Attached Attached -Granulation Amt Large (67-100%) None Present (0 %) -Granulation Quality Red -Slough/Fibrin Yes -Necrosis Amt None Present (0 Large (67-100%) %) -Necrotic Tissue Type Eschar -Structure Exposed N/A -Texture (Verónica-wound Skin Appearance) Scarring Assessed, Scarring -Moisture (Verónica-wound Skin Appearance) No Abnormality Assessed,Dry/ Scaly -Color (Verónica-wound Skin Appearance) Hemosiderin Assessed Staining -Temperature (Verónica-wound Skin No Abnormality No Abnormality Appearance) (Pt Warm) (Pt Warm) -Tenderness on Palpation (Verónica-wound No Skin Appearance) -Ulcer Cleansing Soap and Water Rinsed/ Irrigated with Saline -Foul Odor after Cleansing No No -Anesthetic Used 5% Lidocaine 5% Lidocaine Gel Gel Lower Limb Edema Present Yes Left Calf (cm) 50.8 Left Ankle (cm) 23.4 WC - Nurse 2 - General Ulcer CM Notes Start: 06/26/24 13:33 Freq: Status: Active Protocol: Activity Type Activity Date Activity User E-sign Co-sign Detail Recorded Client Recorded Date Recorded By Document 06/26/24 13:54 JF 000 06/26/24 13:58 JF Document 07/03/24 14:30 JF 0000 07/03/24 14:36 JF 06/26/24 07/03/24 13:54 14:30 Wound Center Nurse 2 #12 LT TORRES proximal -Time 13:55 14:34 -Correct Patient Yes Yes -Correct Side, Site, Position Yes Yes -Correct Procedure Yes Yes -Procedure Performed Yes Yes -Type of Procedure Debridement Debridement -Clinical Debridement Subcutaneous Subcutaneous -Tissue Removed Subcutaneous Subcutaneous -Post Debridement (cm) - Length 0.9 0.7 -Post Debridement (cm) - Width 0.6 0.5 -Post Debridement (cm) - Depth 0.1 0.1 -Total Square (Post) (cm) 0.54 0.35 -Area of Debridement (cm) - Length 0.9 0.7 -Area of Debridement (cm) - Width 0.6 0.5 -Total Square (Area) (cm) 0.54 0.35 -Tunneling No No -Undermining/Tunneling No No -Circular Undermining No No -Wound/Ulcer Outcome Not Healed Not Healed -Ulcer Cleansing Rinsed/ Rinsed/ Irrigated with Irrigated with Saline Saline -Foul Odor after Cleansing No No -Bioengineered Tissue Yes Yes -Type of Bioengineered Tissue Epifix 18mm Epifix 18mm Disc Disc -Expiration Date 12/21/28 12/21/28 -Product Lot Number [id number] -Percent Used 100 100 -Lot number of Saline Used [id number] -Bleeding Controlled with Pressure Pressure -Treatment Response Procedure Procedure Tolerated Well Tolerated Well -Offloading No No -Debridement - Subq, 1st 20sq cm No No -Apply Skin Sub - 1st 25 sq cm - Legs 1 1 -Epifix 18mm Disc 3 3 Pain Scale: 0-10 Numeric Is Patient Pain Free? Yes Yes - Nurse 3 - General Ulcer D/C NN Start: 06/26/24 13:33 Freq: Status: Active Protocol: Activity Type Activity Date Activity User E-sign Co-sign Detail Recorded Client Recorded Date Recorded By Document 06/26/24 14:15 KW fcg 06/26/24 14:15 KW Document 07/03/24 14:44 CP 07/03/24 14:45 CP 06/26/24 07/03/24 14:15 14:44 Wound Care Center Nurse 3 #12 LT TORRES proximal -Primary Dressing Applied Mepilex Border Mepilex Border -Mepilex Border 1 1 Left -Compression Wrap Silvestre Wrap -Other silvestre wrap Pain Scale: 0-10 Numeric Is Patient Pain Free? Yes Yes - Visit Discharge Discharge Condition Stable Stable Ambulatory Status Ambulatory Ambulatory Transportation Private Auto Clinical Summary of Care Provided Yes Assessment/Plan Assessment/Plan (1) Non-pressure chronic ulcer of other part of left lower leg with fat layer exposed: CODE(S): L97.822 - Non-pressure chronic ulcer of other part of left lower leg with fat layer exposed PLAN: Patient was examined and evaluated. All findings were discussed with the patient. All questions were answered to the patient's satisfaction. Excisional debridement down to including subcutaneous tissue of the left proximal ulceration with a number 3 mm dermal curette without incident. Predebridement measurement is sanguinous crust. Postdebridement measurement is 0.7 x 0.5 x 0.1 cm. EpiFix 18 mm disc was applied to the left full-thickness ulceration with 100% use. 8th application. The graft site was free and clear of any infection. The wound/skin graft substitute was dressed with nonadherent bandage secured in place with Steri-Strips followed by bolster dressing as well as a Silvestre wrap to left lower extremity. Follow-up at the wound care center with Dr. Lewis in 1 week. (2) Other specified peripheral vascular diseases: CODE(S): I73.89 - Other specified peripheral vascular diseases
[2024-07-10 10:05] VITALS: BP 132/71; PULSE 70; RESP 18; TEMP 35.7; BMI 51.5
--- NOTE | 2024-07-10 13:08 | PCM.WC.PN ---
History of Present Illness Date of Service: 07/10/24 Chief Complaint: Left anterior leg ulcer History of Wound: 58-year-old female with left leg wound secondary to trauma. Patient is diabetic controlled however she has elevated blood sugar secondary to bilateral ear infections. Subjective Subjective Mrs. Lang is a 58-year-old female presenting to wound care center today for follow-up evaluation of full-thickness wound with application of skin graft substitute to the left leg. Patient has a new area of injury to the distal left leg as well as the right leg where she was struck by a car door over the weekend. No treatment thus far. She did some home dressing changes and states that she notices improvement. She did not present to the emergency room for evaluation. She denies constitutional symptoms. No other pedal complaints at this time Objective Data Objective Data Vital Signs: Vital Signs Temp Pulse Resp BP O2 Del Method O2 Flow Rate 96.3 F L 70 18 132/71 H Nasal Cannula 3 07/10/24 10:05 07/10/24 10:05 07/10/24 10:05 07/10/24 10:05 07/10/24 10:05 07/03/24 13:54 Oxygen Flow Rate (L/min) 3 Oxygen Delivery Method Nasal Cannula Weight: 140.614 kg Body Mass Index (BMI) 51.5 Physical Exam Narrative Vascular: DP and PT pulse are palpable. CFT is brisk to all digits of the left lower extremity. Nonpitting edema appreciated left lower extremity. Skin temperature great is warm to warm from proximal ankle to distal digit bilateral. No focal increase appreciated. Evidence of hemosiderin deposits bilateral. Neurological: Light touch intact. Protective station is absent. Dermatological: Full-thickness ulceration secondary to trauma to the right leg measuring 2.1 x 0.5 x 0.2 cm, wound base is granular nature with no sign of infection. The left upper ulceration measures 0.9 x 0.6 x 0.1 cm, wound base is granular with no sign of infection. The left distal ulceration measures 1.1 x 1.1 x 0.1 cm, wound base is granular with no sign of infection. Excisional debridement of the right leg ulceration down to and including subcutaneous tissue with a number 3 mm dermal curette without incident. Predebridement measurement was 1.8 x 0.3 x 0.1 cm. Postdebridement measurement is 2.1 x 0.5 x 0.2 cm. Excisional debridement of the left distal leg ulceration down to and including subcutaneous tissue with a number 3 mm dermal curette without incident. Predebridement measurement was 1.0 x 1.0 x 0.1 cm. Postdebridement measurement is 1.1 x 1.1 x 0.1 cm. Excisional debridement down to including subcutaneous tissue of the left proximal ulceration with a number 3 mm dermal curette without incident. Predebridement measurement is sanguinous crust. Postdebridement measurement is 0.9 x 0.6 x 0.1 cm. EpiFix 18 mm disc was applied to the left full-thickness ulceration with 100% use. 9th application. The graft site was free and clear of any infection. The wound/skin graft substitute was dressed with nonadherent bandage secured in place with Steri-Strips followed by bolster dressing as well as a Silvestre wrap to left lower extremity. Musculoskeletal: The strength is 5 of 5 in all quads bilateral. No pain on palpation to the left full-thickness ulceration. No pain with calf compression. Debridement Note Debridement Note Debridement Free Text: Excisional debridement of the right leg ulceration down to and including subcutaneous tissue with a number 3 mm dermal curette without incident. Predebridement measurement was 1.8 x 0.3 x 0.1 cm. Postdebridement measurement is 2.1 x 0.5 x 0.2 cm. Excisional debridement of the left distal leg ulceration down to and including subcutaneous tissue with a number 3 mm dermal curette without incident. Predebridement measurement was 1.0 x 1.0 x 0.1 cm. Postdebridement measurement is 1.1 x 1.1 x 0.1 cm. Excisional debridement down to including subcutaneous tissue of the left proximal ulceration with a number 3 mm dermal curette without incident. Predebridement measurement is sanguinous crust. Postdebridement measurement is 0.9 x 0.6 x 0.1 cm. EpiFix 18 mm disc was applied to the left full-thickness ulceration with 100% use. 9th application. The graft site was free and clear of any infection. The wound/skin graft substitute was dressed with nonadherent bandage secured in place with Steri-Strips followed by bolster dressing as well as a Silvestre wrap to left lower extremity. Post-Debridement Measurements and Additional Note: Post-Debridement Measurements/Treatment WC - Nurse 1 - General Ulcer Assessment Start: 06/26/24 13:33 Freq: Status: Active Protocol: PERRY Activity Type Activity Date Activity User E-sign Co-sign Detail Recorded Client Recorded Date Recorded By Document 06/26/24 13:33 DL 10.10.25.7 06/26/24 13:38 DL Edit Result 06/26/24 13:33 DL (1) 10.10.25.7 06/26/24 13:39 DL Document 07/03/24 13:54 MT [id number] 07/03/24 14:05 MT Document 07/10/24 10:05 KW [id number] 07/10/24 10:20 KW (1) Pulse Rate (60-100) => 78 Pulse Location => Monitor Blood Pressure (90/60-120/80) => 169/76 H Blood Pressure Mean (mm Hg) => 107 06/26/24 07/03/24 07/10/24 13:33 13:54 10:05 - Today's Visit Information Type of service Follow-up Visit Follow-up Visit Follow-up Visit (Physician/ROAD ROLLER ENGINEER (Physician/ROAD ROLLER ENGINEER (Physician/ROAD ROLLER ENGINEER ) ) ) Arrival Mode Ambulatory Ambulatory Ambulatory Transfer Assistance None None Patient Identification Verified (Name & Yes Yes Yes ) Patient Requires Transmission-Based No No Precautions Height and Weight Body Mass Index (BMI) 51.5 51.5 51.5 BMI Classification Obese Obese Obese Vital Signs Temperature (97.8 F-99.1 F) 97.8 F 96.3 F L Temperature Source Temporal Temporal Pulse Rate (60-100) 78 74 70 Pulse Location Monitor Monitor Monitor Respiratory Rate (12-18) 18 18 18 Respiratory rate source Observation Observation Observation Oxygen Delivery Method Nasal Cannula Nasal Cannula O2 L/MIN (L/min) 3 Blood Pressure (90/60-120/80) 169/76 H 129/67 H 132/71 H Blood Pressure Mean (mm Hg) 107 87 91 Source Monitor Monitor Position Sitting Semi-Fowlers Blood Pressure Location Left Arm Right Forearm History Since Last Visit- (Skip if this is Patient's initial visit) Have you changed medications since your No No No last visit? Any new allergies or adverse reactions No No No Had a fall/change in ADL's that may No No No increase risk of falls Signs or symptoms of abuse and/or No No No neglect since last visit Have you been in the hospital since your No No No last visit? Has dressing in place as prescribed Yes Yes Yes Has compression in place as prescribed Yes Yes Yes Has offloadiing in place as prescribed N/A N/A N/A Experienced any changes in pain level or No No No management Left Footwear Regular Shoe Regular Shoe Right Footwear Regular Shoe Regular Shoe Pain Scale: 0-10 Numeric Is Patient Pain Free? Yes Yes Yes WC - Nurse 1 - General Ulcer Measurement Start: 06/26/24 13:33 Freq: Status: Active Protocol: Activity Type Activity Date Activity User E-sign Co-sign Detail Recorded Client Recorded Date Recorded By Document 06/26/24 13:33 DL 10.10.25.7 06/26/24 13:38 DL Document 07/03/24 13:54 MT [id number] 07/03/24 14:05 MT Document 07/10/24 10:05 KW [id number] 07/10/24 10:20 KW 06/26/24 07/03/24 07/10/24 13:33 13:54 10:05 Wound Center Nurse 1 #16 DISTAL LT TORRES -Current Size (cm) - Length 1 -Current Size (cm) - Width 1 -Current Size (cm) - Depth 0.1 -Total Square Cm 1 -Date of Last Picture (Recall this 07/10/24 field) -Exudate Amt Medium -Exudate Type Serosanguineous -Wound Margin Distinct, Outline Attached -Granulation Amt Large (67-100%) -Granulation Quality [place] -Necrosis Amt Small (1-33%) -Necrotic Tissue Type Adherent Slough -Texture (Verónica-wound Skin Appearance) Assessed -Moisture (Verónica-wound Skin Appearance) Assessed, Maceration -Color (Verónica-wound Skin Appearance) Assessed, Erythema -Temperature (Verónica-wound Skin No Abnormality Appearance) (Pt Warm) -Tenderness on Palpation (Verónica-wound No Skin Appearance) -Ulcer Cleansing Rinsed/ Irrigated with Saline -Anesthetic Used 5% Lidocaine Gel #15 RT LAT LE -Current Size (cm) - Length 2.3 -Current Size (cm) - Width 1.5 -Current Size (cm) - Depth 0.2 -Total Square Cm 3.45 -Date of Last Picture (Recall this 07/10/24 field) -Exudate Amt Small -Exudate Type Serosanguineous -Wound Margin Distinct, Outline Attached -Granulation Amt Large (67-100%) -Granulation Quality Red -Texture (Verónica-wound Skin Appearance) Assessed -Moisture (Verónica-wound Skin Appearance) Assessed -Color (Verónica-wound Skin Appearance) Assessed -Temperature (Verónica-wound Skin No Abnormality Appearance) (Pt Warm) -Tenderness on Palpation (Verónica-wound No Skin Appearance) -Ulcer Cleansing Rinsed/ Irrigated with Saline -Foul Odor after Cleansing No -Anesthetic Used 5% Lidocaine Gel #12 LT TORRES proximal -Combined with other wound No -Current Size (cm) - Length 0.8 0.8 0.8 -Current Size (cm) - Width 0.5 0.6 0.8 -Current Size (cm) - Depth 0.2 0.1 0.1 -Total Square Cm 0.40 0.48 0.64 -Date of Last Picture (Recall this 07/10/24 field) -Photo Taken Yes -Tunneling No -Undermining/Tunneling No -Circular Undermining No -Exudate Amt Small Small Small -Exudate Type Serosanguineous Serosanguineous Serosanguineous -Wound Margin Distinct, Distinct, Distinct, Outline Outline Outline Attached Attached Attached -Granulation Amt Large (67-100%) None Present (0 Small (1-33%) %) -Granulation Quality Red [place],Red -Slough/Fibrin Yes -Necrosis Amt None Present (0 Large (67-100%) Large (67-100%) %) -Necrotic Tissue Type Eschar Adherent Slough -Structure Exposed N/A -Texture (Verónica-wound Skin Appearance) Scarring Assessed, Assessed Scarring -Moisture (Verónica-wound Skin Appearance) No Abnormality Assessed,Dry/ Assessed Scaly -Color (Verónica-wound Skin Appearance) Hemosiderin Assessed Assessed Staining -Temperature (Verónica-wound Skin No Abnormality No Abnormality No Abnormality Appearance) (Pt Warm) (Pt Warm) (Pt Warm) -Tenderness on Palpation (Verónica-wound No No Skin Appearance) -Ulcer Cleansing Soap and Water Rinsed/ Rinsed/ Irrigated with Irrigated with Saline Saline -Foul Odor after Cleansing No No No -Anesthetic Used 5% Lidocaine 5% Lidocaine 5% Lidocaine Gel Gel Gel Lower Limb Edema Present Yes Left Calf (cm) 50.8 Left Ankle (cm) 23.4 WC - Nurse 2 - General Ulcer CM Notes Start: 06/26/24 13:33 Freq: Status: Active Protocol: Activity Type Activity Date Activity User E-sign Co-sign Detail Recorded Client Recorded Date Recorded By Document 06/26/24 13:54 JF 000 06/26/24 13:58 JF Document 07/03/24 14:30 JF 0000 07/03/24 14:36 Document 07/10/24 10:35 [id number] 07/10/24 10:42 JF 06/26/24 07/03/24 07/10/24 13:54 14:30 10:35 Wound Center Nurse 2 #16 DISTAL LT TORRES -Time 10:39 -Correct Patient Yes -Correct Side, Site, Position Yes -Correct Procedure Yes -Procedure Performed Yes -Type of Procedure Debridement -Clinical Debridement Subcutaneous -Tissue Removed Subcutaneous -Post Debridement (cm) - Length 1.1 -Post Debridement (cm) - Width 1.0 -Post Debridement (cm) - Depth 0.1 -Total Square (Post) (cm) 1.10 -Area of Debridement (cm) - Length 1.1 -Area of Debridement (cm) - Width 1.0 -Total Square (Area) (cm) 1.10 -Tunneling No -Undermining/Tunneling No -Circular Undermining No -Wound/Ulcer Outcome Not Healed -Ulcer Cleansing Rinsed/ Irrigated with Saline -Foul Odor after Cleansing No -Bioengineered Tissue No -Bleeding Controlled with Pressure -Treatment Response Procedure Tolerated Well -Offloading No -Debridement - Subq, 1st 20sq cm No #15 RT LAT LE -Time 10:39 -Correct Patient Yes -Correct Side, Site, Position Yes -Correct Procedure Yes -Procedure Performed Yes -Type of Procedure Debridement -Clinical Debridement Subcutaneous -Tissue Removed Subcutaneous -Post Debridement (cm) - Length 2.1 -Post Debridement (cm) - Width 0.5 -Post Debridement (cm) - Depth 0.2 -Total Square (Post) (cm) 1.05 -Area of Debridement (cm) - Length 2.1 -Area of Debridement (cm) - Width 0.5 -Total Square (Area) (cm) 1.05 -Tunneling No -Undermining/Tunneling No -Circular Undermining No -Wound/Ulcer Outcome Not Healed -Ulcer Cleansing Rinsed/ Irrigated with Saline -Foul Odor after Cleansing No -Bioengineered Tissue No -Bleeding Controlled with Pressure -Treatment Response Procedure Tolerated Well -Offloading No -Debridement - Subq, 1st 20sq cm Yes #12 LT TORRES proximal -Time 13:55 14:34 10:40 -Correct Patient Yes Yes Yes -Correct Side, Site, Position Yes Yes Yes -Correct Procedure Yes Yes Yes -Procedure Performed Yes Yes Yes -Type of Procedure Debridement Debridement Debridement -Clinical Debridement Subcutaneous Subcutaneous Subcutaneous -Tissue Removed Subcutaneous Subcutaneous Subcutaneous -Post Debridement (cm) - Length 0.9 0.7 0.9 -Post Debridement (cm) - Width 0.6 0.5 0.6 -Post Debridement (cm) - Depth 0.1 0.1 0.1 -Total Square (Post) (cm) 0.54 0.35 0.54 -Area of Debridement (cm) - Length 0.9 0.7 0.9 -Area of Debridement (cm) - Width 0.6 0.5 0.6 -Total Square (Area) (cm) 0.54 0.35 0.54 -Tunneling No No No -Undermining/Tunneling No No No -Circular Undermining No No No -Wound/Ulcer Outcome Not Healed Not Healed Not Healed -Ulcer Cleansing Rinsed/ Rinsed/ Rinsed/ Irrigated with Irrigated with Irrigated with Saline Saline Saline -Foul Odor after Cleansing No No No -Bioengineered Tissue Yes Yes Yes -Type of Bioengineered Tissue Epifix 18mm Epifix 18mm Epifix 18mm Disc Disc Disc -Expiration Date 12/21/28 12/21/28 12/21/28 -Product Lot Number [id number] -Percent Used 100 100 100 -Lot number of Saline Used [id number] -Bleeding Controlled with Pressure Pressure Pressure -Treatment Response Procedure Procedure Procedure Tolerated Well Tolerated Well Tolerated Well -Offloading No No No -Debridement - Subq, 1st 20sq cm No No No -Apply Skin Sub - 1st 25 sq cm - Legs 1 1 1 -Epifix 18mm Disc 3 3 3 Pain Scale: 0-10 Numeric Is Patient Pain Free? Yes Yes Yes WC - Nurse 3 - General Ulcer D/C NN Start: 06/26/24 13:33 Freq: Status: Active Protocol: Activity Type Activity Date Activity User E-sign Co-sign Detail Recorded Client Recorded Date Recorded By Document 06/26/24 14:15 KW fcg 06/26/24 14:15 KW Document 07/03/24 14:44 CP 07/03/24 14:45 CP Document 07/10/24 11:06 CP [id number] 07/10/24 11:08 CP 06/26/24 07/03/24 07/10/24 14:15 14:44 11:06 Wound Care Center Nurse 3 #16 DISTAL LT TORRES -Primary Dressing Covered/Secured with Dry Gauze #15 RT LAT LE -Primary Dressing Covered/Secured with Dry Gauze #12 LT TORRES proximal -Primary Dressing Applied Mepilex Border Mepilex Border -Primary Dressing Covered/Secured with Dry Gauze -Mepilex Border 1 1 Right -Lotion applied to leg before Yes compression wrap Left -Compression Wrap Silvestre Wrap -Other silvestre wrap joseph -Lotion applied to leg before Yes compression wrap -Multi-Layered Wrap Application Multi-Layer Comp - Bilat ($ ) Treatment Response Procedure Tolerated Well Pain Scale: 0-10 Numeric Is Patient Pain Free? Yes Yes Yes WC - Visit Discharge Discharge Condition Stable Stable Stable Ambulatory Status Ambulatory Ambulatory Ambulatory, [facility] Private Auto Private Auto Clinical Summary of Care Provided Yes Yes Assessment/Plan Assessment/Plan (1) Non-pressure chronic ulcer of other part of left lower leg with fat layer exposed: CODE(S): L97.822 - Non-pressure chronic ulcer of other part of left lower leg with fat layer exposed PLAN: Patient was examined and evaluated. All findings were discussed with the patient. All questions were answered to the patient's satisfaction. Excisional debridement of the right leg ulceration down to and including subcutaneous tissue with a number 3 mm dermal curette without incident. Predebridement measurement was 1.8 x 0.3 x 0.1 cm. Postdebridement measurement is 2.1 x 0.5 x 0.2 cm. Excisional debridement of the left distal leg ulceration down to and including subcutaneous tissue with a number 3 mm dermal curette without incident. Predebridement measurement was 1.0 x 1.0 x 0.1 cm. Postdebridement measurement is 1.1 x 1.1 x 0.1 cm. Excisional debridement down to including subcutaneous tissue of the left proximal ulceration with a number 3 mm dermal curette without incident. Predebridement measurement is sanguinous crust. Postdebridement measurement is 0.9 x 0.6 x 0.1 cm. EpiFix 18 mm disc was applied to the left full-thickness ulceration with 100% use. 9th application. The graft site was free and clear of any infection. The wound/skin graft substitute was dressed with nonadherent bandage secured in place with Steri-Strips followed by bolster dressing as well as a 3M wrap to left lower extremity. The patient's right leg ulceration skin was reeducated with Steri-Strips and dressed with triple antibiotic dry sterile dressing and 3M wrap. She will leave this clean dry and intact as well as the left lower extremity 3M wrap will be left clean dry and intact. Follow-up at the wound care center with Dr. Lewis in 1 week. (2) Other specified peripheral vascular diseases: CODE(S): I73.89 - Other specified peripheral vascular diseases (3) Non-pressure chronic ulcer of other part of right lower leg with fat layer exposed: CODE(S): L97.812 - Non-pressure chronic ulcer of other part of right lower leg with fat layer exposed
--- NOTE | 2024-07-11 13:48 | WC ---
PHOTO 07/10/24 FREEMAN
[2024-07-17 13:41] VITALS: BP 152/73; PULSE 69; RESP 16; TEMP 36.3; BMI 51.5
--- NOTE | 2024-07-17 14:21 | PCM.WC.PN ---
History of Present Illness Date of Service: 07/17/24 Chief Complaint: Left anterior leg ulcer History of Wound: 58-year-old female with left leg wound secondary to trauma. Patient is diabetic controlled however she has elevated blood sugar secondary to bilateral ear infections. Subjective Subjective Ms. Lang is a 58-year-old female presenting to clinic today with chief complaint of bilateral full-thickness ulceration. Patient removed her 3M wrap secondary to pain. She is requesting to be placed in Silvestre wrap. She is left her dressing clean dry and intact after removing the 3M wraps. Denies any new onset of trauma. Denies constitutional symptoms. No other pedal plaints at this time. Objective Data Objective Data Vital Signs: Vital Signs Temp Pulse Resp BP O2 Del Method O2 Flow Rate 97.3 F L 69 16 152/73 H Room Air 3 07/17/24 13:41 07/17/24 13:41 07/17/24 13:41 07/17/24 13:41 07/17/24 13:41 07/03/24 13:54 Oxygen Flow Rate (L/min) 3 Oxygen Delivery Method Room Air Weight: 140.614 kg Body Mass Index (BMI) 51.5 Physical Exam Narrative Vascular: DP and PT pulse are palpable. CFT is brisk to all digits of the left lower extremity. Nonpitting edema appreciated left lower extremity. Skin temperature great is warm to warm from proximal ankle to distal digit bilateral. No focal increase appreciated. Evidence of hemosiderin deposits bilateral. Neurological: Light touch intact. Protective station is absent. Dermatological: Full-thickness ulceration secondary to trauma to the right leg measuring 2.0 x 0.4 x 0.2 cm, wound base is granular nature with no sign of infection. The left upper ulceration measures 0.8 x 0.5 x 0.2 cm, wound base is granular with no sign of infection. The left distal ulceration measures 0.6 x 0.5 x 0.1 cm, wound base is granular with no sign of infection. Excisional debridement of the right leg ulceration down to and including subcutaneous tissue with a number 3 mm dermal curette without incident. Predebridement measurement was 1.9 x 0.3 x 0.1 cm. Postdebridement measurement is 2.0 x 0.4 x 0.2 cm. Excisional debridement of the left distal leg ulceration down to and including subcutaneous tissue with a number 3 mm dermal curette without incident. Predebridement measurement was 0.5 x 0.4 x 0.1 cm. Postdebridement measurement is 0.6 x 0.5 x 0.1 cm. Excisional debridement down to including subcutaneous tissue of the left proximal ulceration with a number 3 mm dermal curette without incident. Predebridement measurement is sanguinous crust. Postdebridement measurement is 0.8 x 0.5 x 0.2 cm. EpiFix 18 mm disc was applied to the left full-thickness ulceration with 100% use. 10th application. The graft site was free and clear of any infection. The wound/skin graft substitute was dressed with nonadherent bandage secured in place with Steri-Strips followed by bolster dressing as well as a Silvestre wrap to left lower extremity. Musculoskeletal: The strength is 5 of 5 in all quads bilateral. No pain on palpation to the left full-thickness ulceration. No pain with calf compression. Debridement Note Debridement Note Debridement Free Text: Excisional debridement of the right leg ulceration down to and including subcutaneous tissue with a number 3 mm dermal curette without incident. Predebridement measurement was 1.9 x 0.3 x 0.1 cm. Postdebridement measurement is 2.0 x 0.4 x 0.2 cm. Excisional debridement of the left distal leg ulceration down to and including subcutaneous tissue with a number 3 mm dermal curette without incident. Predebridement measurement was 0.5 x 0.4 x 0.1 cm. Postdebridement measurement is 0.6 x 0.5 x 0.1 cm. Excisional debridement down to including subcutaneous tissue of the left proximal ulceration with a number 3 mm dermal curette without incident. Predebridement measurement is sanguinous crust. Postdebridement measurement is 0.8 x 0.5 x 0.2 cm. EpiFix 18 mm disc was applied to the left full-thickness ulceration with 100% use. 10th application. The graft site was free and clear of any infection. The wound/skin graft substitute was dressed with nonadherent bandage secured in place with Steri-Strips followed by bolster dressing as well as a Silvestre wrap to left lower extremity. Post-Debridement Measurements and Additional Note: Post-Debridement Measurements/Treatment WC - Nurse 1 - General Ulcer Assessment Start: 06/26/24 13:33 Freq: Status: Active Protocol: WC.LOWEXT Activity Type Activity Date Activity User E-sign Co-sign Detail Recorded Client Recorded Date Recorded By Document 06/26/24 13:33 DL 10.10.25.7 06/26/24 13:38 DL Edit Result 06/26/24 13:33 DL (1) 10.10.25.7 06/26/24 13:39 DL Document 07/03/24 13:54 MT [id number] 07/03/24 14:05 MT Document 07/10/24 10:05 KW [id number] 07/10/24 10:20 KW Document 07/17/24 13:41 KW [id number] 07/17/24 13:51 KW (1) Pulse Rate (60-100) => 78 Pulse Location => Monitor Blood Pressure (90/60-120/80) => 169/76 H Blood Pressure Mean (mm Hg) => 107 06/26/24 07/03/24 07/10/24 13:33 13:54 10:05 WC - Today's Visit Information Type of service Follow-up Visit Follow-up Visit Follow-up Visit (Physician/SHEARING 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 (Physician/SHEARING 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 (Physician/SHEARING 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 ) ) ) Arrival Mode Ambulatory Ambulatory Ambulatory Transfer Assistance None None Accompanied by Patient Identification Verified (Name & Yes Yes Yes ) Patient Requires Transmission-Based No No Precautions Height and Weight Body Mass Index (BMI) 51.5 51.5 51.5 BMI Classification Obese Obese Obese Vital Signs Temperature (97.8 F-99.1 F) 97.8 F 96.3 F L Temperature Source Temporal Temporal Pulse Rate (60-100) 78 74 70 Pulse Location Monitor Monitor Monitor Respiratory Rate (12-18) 18 18 18 Respiratory rate source Observation Observation Observation Oxygen Delivery Method Nasal Cannula Nasal Cannula O2 L/MIN (L/min) 3 Blood Pressure (90/60-120/80) 169/76 H 129/67 H 132/71 H Blood Pressure Mean (mm Hg) 107 87 91 Source Monitor Monitor Position Sitting Semi-Fowlers Blood Pressure Location Left Arm Right Forearm History Since Last Visit- (Skip if this is Patient's initial visit) Have you changed medications since your No No No last visit? Any new allergies or adverse reactions No No No Had a fall/change in ADL's that may No No No increase risk of falls Signs or symptoms of abuse and/or No No No neglect since last visit Have you been in the hospital since your No No No last visit? Has dressing in place as prescribed Yes Yes Yes Has compression in place as prescribed Yes Yes Yes Has offloadiing in place as prescribed N/A N/A N/A Experienced any changes in pain level or No No No management Left Footwear Regular Shoe Regular Shoe Right Footwear Regular Shoe Regular Shoe Pain Scale: 0-10 Numeric Is Patient Pain Free? Yes Yes Yes back -Description -Alleviating Factors/Interventions BLE -Description -Alleviating Factors/Interventions 07/17/24 13:41 WC - Today's Visit Information Type of service Follow-up Visit (Physician/SHEARING 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 ) Arrival Mode Ambulatory Transfer Assistance Accompanied by caregiver Patient Identification Verified (Name & Yes ) Patient Requires Transmission-Based Precautions Height and Weight Body Mass Index (BMI) 51.5 BMI Classification Obese Vital Signs Temperature (97.8 F-99.1 F) 97.3 F L Temperature Source Temporal Pulse Rate (60-100) 69 Pulse Location Monitor Respiratory Rate (12-18) 16 Respiratory rate source Observation Oxygen Delivery Method Room Air O2 L/MIN (L/min) Blood Pressure (90/60-120/80) 152/73 H Blood Pressure Mean (mm Hg) 99 Source Monitor Position Semi-Fowlers Blood Pressure Location Right Forearm History Since Last Visit- (Skip if this is Patient's initial visit) Have you changed medications since your No last visit? Any new allergies or adverse reactions No Had a fall/change in ADL's that may No increase risk of falls Signs or symptoms of abuse and/or No neglect since last visit Have you been in the hospital since your No last visit? Has dressing in place as prescribed Yes Has compression in place as prescribed Yes Has offloadiing in place as prescribed N/A Experienced any changes in pain level or No management Left Footwear Regular Shoe Right Footwear Regular Shoe Pain Scale: 0-10 Numeric Is Patient Pain Free? No back -Description Throbbing -Alleviating Factors/Interventions Medication BLE -Description Sharp,Throbbing -Alleviating Factors/Interventions Medication - Nurse 1 - General Ulcer Measurement Start: 06/26/24 13:33 Freq: Status: Active Protocol: Activity Type Activity Date Activity User E-sign Co-sign Detail Recorded Client Recorded Date Recorded By Document 06/26/24 13:33 DL 10.10.25.7 06/26/24 13:38 DL Document 07/03/24 13:54 MT [id number] 07/03/24 14:05 MT Document 07/10/24 10:05 KW [id number] 07/10/24 10:20 KW Document 07/17/24 13:41 KW [id number] 07/17/24 13:51 KW 06/26/24 07/03/24 07/10/24 13:33 13:54 10:05 Wound Center Nurse 1 #16 DISTAL LT TORRES -Combined with other wound -Current Size (cm) - Length 1 -Current Size (cm) - Width 1 -Current Size (cm) - Depth 0.1 -Total Square Cm 1 -Date of Last Picture (Recall this 07/10/24 field) -Epithelialization -Tunneling -Undermining/Tunneling -Circular Undermining -Exudate Amt Medium -Exudate Type Serosanguineous -Wound Margin Distinct, Outline Attached -Granulation Amt Large (67-100%) -Granulation Quality [place] -Slough/Fibrin -Necrosis Amt Small (1-33%) -Necrotic Tissue Type Adherent Slough -Texture (Verónica-wound Skin Appearance) Assessed -Moisture (Verónica-wound Skin Appearance) Assessed, Maceration -Color (Verónica-wound Skin Appearance) Assessed, Erythema -Temperature (Verónica-wound Skin No Abnormality Appearance) (Pt Warm) -Tenderness on Palpation (Verónica-wound No Skin Appearance) -Ulcer Cleansing Rinsed/ Irrigated with Saline -Foul Odor after Cleansing -Anesthetic Used 5% Lidocaine Gel #15 RT LAT LE -Combined with other wound -Current Size (cm) - Length 2.3 -Current Size (cm) - Width 1.5 -Current Size (cm) - Depth 0.2 -Total Square Cm 3.45 -Date of Last Picture (Recall this 07/10/24 field) -Epithelialization -Tunneling -Undermining/Tunneling -Circular Undermining -Exudate Amt Small -Exudate Type Serosanguineous -Wound Margin Distinct, Outline Attached -Granulation Amt Large (67-100%) -Granulation Quality Red -Slough/Fibrin -Necrosis Amt -Necrotic Tissue Type -Texture (Verónica-wound Skin Appearance) Assessed -Moisture (Verónica-wound Skin Appearance) Assessed -Color (Verónica-wound Skin Appearance) Assessed -Temperature (Verónica-wound Skin No Abnormality Appearance) (Pt Warm) -Tenderness on Palpation (Verónica-wound No Skin Appearance) -Ulcer Cleansing Rinsed/ Irrigated with Saline -Foul Odor after Cleansing No -Anesthetic Used 5% Lidocaine Gel #12 LT TORRES proximal -Combined with other wound No -Current Size (cm) - Length 0.8 0.8 0.8 -Current Size (cm) - Width 0.5 0.6 0.8 -Current Size (cm) - Depth 0.2 0.1 0.1 -Total Square Cm 0.40 0.48 0.64 -Date of Last Picture (Recall this 07/10/24 field) -Photo Taken Yes -Tunneling No -Undermining/Tunneling No -Circular Undermining No -Exudate Amt Small Small Small -Exudate Type Serosanguineous Serosanguineous Serosanguineous -Wound Margin Distinct, Distinct, Distinct, Outline Outline Outline Attached Attached Attached -Granulation Amt Large (67-100%) None Present (0 Small (1-33%) %) -Granulation Quality Red [place],Red -Slough/Fibrin Yes -Necrosis Amt None Present (0 Large (67-100%) Large (67-100%) %) -Necrotic Tissue Type Eschar Adherent Slough -Structure Exposed N/A -Texture (Verónica-wound Skin Appearance) Scarring Assessed, Assessed Scarring -Moisture (Verónica-wound Skin Appearance) No Abnormality Assessed,Dry/ Assessed Scaly -Color (Verónica-wound Skin Appearance) Hemosiderin Assessed Assessed Staining -Temperature (Verónica-wound Skin No Abnormality No Abnormality No Abnormality Appearance) (Pt Warm) (Pt Warm) (Pt Warm) -Tenderness on Palpation (Verónica-wound No No Skin Appearance) -Ulcer Cleansing Soap and Water Rinsed/ Rinsed/ Irrigated with Irrigated with Saline Saline -Foul Odor after Cleansing No No No -Anesthetic Used 5% Lidocaine 5% Lidocaine 5% Lidocaine Gel Gel Gel Lower Limb Edema Present Yes Right Calf (cm) Right Ankle (cm) Right Foot (cm) Left Calf (cm) 50.8 Left Ankle (cm) 23.4 07/17/24 13:41 Wound Center Nurse 1 #16 DISTAL LT TORRES -Combined with other wound No -Current Size (cm) - Length 0.5 -Current Size (cm) - Width 0.6 -Current Size (cm) - Depth 0.1 -Total Square Cm 0.30 -Date of Last Picture (Recall this field) -Epithelialization Small 1-33% -Tunneling No -Undermining/Tunneling No -Circular Undermining No -Exudate Amt Medium -Exudate Type Serosanguineous -Wound Margin Distinct, Outline Attached -Granulation Amt Large (67-100%) -Granulation Quality [place] -Slough/Fibrin Yes -Necrosis Amt Small (1-33%) -Necrotic Tissue Type Adherent Slough -Texture (Verónica-wound Skin Appearance) Assessed, Scarring -Moisture (Verónica-wound Skin Appearance) Assessed -Color (Verónica-wound Skin Appearance) Assessed -Temperature (Verónica-wound Skin No Abnormality Appearance) (Pt Warm) -Tenderness on Palpation (Verónica-wound No Skin Appearance) -Ulcer Cleansing Soap and Water -Foul Odor after Cleansing No -Anesthetic Used 5% Lidocaine Gel #15 RT LAT LE -Combined with other wound No -Current Size (cm) - Length 2.5 -Current Size (cm) - Width 1 -Current Size (cm) - Depth 0.2 -Total Square Cm 2.5 -Date of Last Picture (Recall this field) -Epithelialization Small 1-33% -Tunneling No -Undermining/Tunneling No -Circular Undermining No -Exudate Amt Medium -Exudate Type Serosanguineous -Wound Margin Distinct, Outline Attached -Granulation Amt Large (67-100%) -Granulation Quality Red -Slough/Fibrin Yes -Necrosis Amt Small (1-33%) -Necrotic Tissue Type Eschar -Texture (Verónica-wound Skin Appearance) Assessed -Moisture (Verónica-wound Skin Appearance) Assessed -Color (Verónica-wound Skin Appearance) Assessed -Temperature (Verónica-wound Skin No Abnormality Appearance) (Pt Warm) -Tenderness on Palpation (Verónica-wound No Skin Appearance) -Ulcer Cleansing Soap and Water -Foul Odor after Cleansing No -Anesthetic Used 5% Lidocaine Gel #12 LT TORRES proximal -Combined with other wound No -Current Size (cm) - Length 0.8 -Current Size (cm) - Width 0.4 -Current Size (cm) - Depth 0.1 -Total Square Cm 0.32 -Date of Last Picture (Recall this field) -Photo Taken -Tunneling No -Undermining/Tunneling No -Circular Undermining No -Exudate Amt Medium -Exudate Type Serosanguineous -Wound Margin Distinct, Outline Attached -Granulation Amt None Present (0 %) -Granulation Quality -Slough/Fibrin Yes -Necrosis Amt Large (67-100%) -Necrotic Tissue Type Eschar -Structure Exposed -Texture (Verónica-wound Skin Appearance) Assessed, Scarring -Moisture (Verónica-wound Skin Appearance) Assessed,Dry/ Scaly -Color (Verónica-wound Skin Appearance) Assessed -Temperature (Verónica-wound Skin No Abnormality Appearance) (Pt Warm) -Tenderness on Palpation (Verónica-wound No Skin Appearance) -Ulcer Cleansing Soap and Water -Foul Odor after Cleansing No -Anesthetic Used 5% Lidocaine Gel Lower Limb Edema Present Yes Right Calf (cm) 54.5 Right Ankle (cm) 23.5 Right Foot (cm) 50.7 Left Calf (cm) 23.5 Left Ankle (cm) WC - Nurse 2 - General Ulcer CM Notes Start: 06/26/24 13:33 Freq: Status: Active Protocol: Activity Type Activity Date Activity User E-sign Co-sign Detail Recorded Client Recorded Date Recorded By Document 06/26/24 13:54 000 06/26/24 13:58 Document 07/03/24 14:30 0000 07/03/24 14:36 Document 07/10/24 10:35 [id number] 07/10/24 10:42 Document 07/17/24 14:10 [id number] 07/17/24 14:15 06/26/24 07/03/24 07/10/24 13:54 14:30 10:35 Wound Center Nurse 2 #16 DISTAL LT TORRES -Time 10:39 -Correct Patient Yes -Correct Side, Site, Position Yes -Correct Procedure Yes -Procedure Performed Yes -Type of Procedure Debridement -Clinical Debridement Subcutaneous -Tissue Removed Subcutaneous -Post Debridement (cm) - Length 1.1 -Post Debridement (cm) - Width 1.0 -Post Debridement (cm) - Depth 0.1 -Total Square (Post) (cm) 1.10 -Area of Debridement (cm) - Length 1.1 -Area of Debridement (cm) - Width 1.0 -Total Square (Area) (cm) 1.10 -Tunneling No -Undermining/Tunneling No -Circular Undermining No -Wound/Ulcer Outcome Not Healed -Ulcer Cleansing Rinsed/ Irrigated with Saline -Foul Odor after Cleansing No -Bioengineered Tissue No -Bleeding Controlled with Pressure -Treatment Response Procedure Tolerated Well -Offloading No -Debridement - Subq, 1st 20sq cm No #15 RT LAT LE -Time 10:39 -Correct Patient Yes -Correct Side, Site, Position Yes -Correct Procedure Yes -Procedure Performed Yes -Type of Procedure Debridement -Clinical Debridement Subcutaneous -Tissue Removed Subcutaneous -Post Debridement (cm) - Length 2.1 -Post Debridement (cm) - Width 0.5 -Post Debridement (cm) - Depth 0.2 -Total Square (Post) (cm) 1.05 -Area of Debridement (cm) - Length 2.1 -Area of Debridement (cm) - Width 0.5 -Total Square (Area) (cm) 1.05 -Tunneling No -Undermining/Tunneling No -Circular Undermining No -Wound/Ulcer Outcome Not Healed -Ulcer Cleansing Rinsed/ Irrigated with Saline -Foul Odor after Cleansing No -Bioengineered Tissue No -Bleeding Controlled with Pressure -Treatment Response Procedure Tolerated Well -Offloading No -Debridement - Subq, 1st 20sq cm Yes #12 LT TORRES proximal -Time 13:55 14:34 10:40 -Correct Patient Yes Yes Yes -Correct Side, Site, Position Yes Yes Yes -Correct Procedure Yes Yes Yes -Procedure Performed Yes Yes Yes -Type of Procedure Debridement Debridement Debridement -Clinical Debridement Subcutaneous Subcutaneous Subcutaneous -Tissue Removed Subcutaneous Subcutaneous Subcutaneous -Post Debridement (cm) - Length 0.9 0.7 0.9 -Post Debridement (cm) - Width 0.6 0.5 0.6 -Post Debridement (cm) - Depth 0.1 0.1 0.1 -Total Square (Post) (cm) 0.54 0.35 0.54 -Area of Debridement (cm) - Length 0.9 0.7 0.9 -Area of Debridement (cm) - Width 0.6 0.5 0.6 -Total Square (Area) (cm) 0.54 0.35 0.54 -Tunneling No No No -Undermining/Tunneling No No No -Circular Undermining No No No -Wound/Ulcer Outcome Not Healed Not Healed Not Healed -Ulcer Cleansing Rinsed/ Rinsed/ Rinsed/ Irrigated with Irrigated with Irrigated with Saline Saline Saline -Foul Odor after Cleansing No No No -Bioengineered Tissue Yes Yes Yes -Type of Bioengineered Tissue Epifix 18mm Epifix 18mm Epifix 18mm Disc Disc Disc -Expiration Date 12/21/28 12/21/28 12/21/28 -Product Lot Number [id number] -Percent Used 100 100 100 -Lot number of Saline Used [id number] -Bleeding Controlled with Pressure Pressure Pressure -Treatment Response Procedure Procedure Procedure Tolerated Well Tolerated Well Tolerated Well -Offloading No No No -Debridement - Subq, 1st 20sq cm No No No -Apply Skin Sub - 1st 25 sq cm - Legs 1 1 1 -Epifix 18mm Disc 3 3 3 Pain Scale: 0-10 Numeric Is Patient Pain Free? Yes Yes Yes 07/17/24 14:10 Wound Center Nurse 2 #16 DISTAL LT TORRES -Time 14:12 -Correct Patient Yes -Correct Side, Site, Position Yes -Correct Procedure Yes -Procedure Performed Yes -Type of Procedure Debridement -Clinical Debridement Subcutaneous -Tissue Removed Subcutaneous -Post Debridement (cm) - Length 0.6 -Post Debridement (cm) - Width 0.5 -Post Debridement (cm) - Depth 0.1 -Total Square (Post) (cm) 0.30 -Area of Debridement (cm) - Length 0.6 -Area of Debridement (cm) - Width 0.5 -Total Square (Area) (cm) 0.30 -Tunneling No -Undermining/Tunneling No -Circular Undermining No -Wound/Ulcer Outcome Not Healed -Ulcer Cleansing Rinsed/ Irrigated with Saline -Foul Odor after Cleansing No -Bioengineered Tissue No -Bleeding Controlled with Pressure -Treatment Response Procedure Tolerated Well -Offloading No -Debridement - Subq, 1st 20sq cm Yes #15 RT LAT LE -Time 14:13 -Correct Patient Yes -Correct Side, Site, Position Yes -Correct Procedure Yes -Procedure Performed Yes -Type of Procedure Debridement -Clinical Debridement Subcutaneous -Tissue Removed Subcutaneous -Post Debridement (cm) - Length 2.0 -Post Debridement (cm) - Width 0.4 -Post Debridement (cm) - Depth 0.2 -Total Square (Post) (cm) 0.80 -Area of Debridement (cm) - Length 2.0 -Area of Debridement (cm) - Width 0.4 -Total Square (Area) (cm) 0.80 -Tunneling No -Undermining/Tunneling No -Circular Undermining No -Wound/Ulcer Outcome Not Healed -Ulcer Cleansing Rinsed/ Irrigated with Saline -Foul Odor after Cleansing No -Bioengineered Tissue No -Bleeding Controlled with Pressure -Treatment Response Procedure Tolerated Well -Offloading No -Debridement - Subq, 1st 20sq cm No #12 LT TORRES proximal -Time 14:13 -Correct Patient Yes -Correct Side, Site, Position Yes -Correct Procedure Yes -Procedure Performed Yes -Type of Procedure Debridement -Clinical Debridement Subcutaneous -Tissue Removed Subcutaneous -Post Debridement (cm) - Length 0.8 -Post Debridement (cm) - Width 0.5 -Post Debridement (cm) - Depth 0.2 -Total Square (Post) (cm) 0.40 -Area of Debridement (cm) - Length 0.8 -Area of Debridement (cm) - Width 0.5 -Total Square (Area) (cm) 0.40 -Tunneling No -Undermining/Tunneling No -Circular Undermining No -Wound/Ulcer Outcome Not Healed -Ulcer Cleansing Rinsed/ Irrigated with Saline -Foul Odor after Cleansing No -Bioengineered Tissue Yes -Type of Bioengineered Tissue Epifix 18mm Disc -Expiration Date 12/21/28 -Product Lot Number [id number] -Percent Used 100 -Lot number of Saline Used [id number] -Bleeding Controlled with Pressure -Treatment Response Procedure Tolerated Well -Offloading No -Debridement - Subq, 1st 20sq cm No -Apply Skin Sub - 1st 25 sq cm - Legs 1 -Epifix 18mm Disc 3 Pain Scale: 0-10 Numeric Is Patient Pain Free? Yes WC - Nurse 3 - General Ulcer D/C NN Start: 06/26/24 13:33 Freq: Status: Active Protocol: Activity Type Activity Date Activity User E-sign Co-sign Detail Recorded Client Recorded Date Recorded By Document 06/26/24 14:15 KW fcg 06/26/24 14:15 KW Document 07/03/24 14:44 CP 07/03/24 14:45 CP Document 07/10/24 11:06 CP [id number] 07/10/24 11:08 CP 06/26/24 07/03/24 07/10/24 14:15 14:44 11:06 Wound Care Center Nurse 3 #16 DISTAL LT TORRES -Primary Dressing Covered/Secured with Dry Gauze #15 RT LAT LE -Primary Dressing Covered/Secured with Dry Gauze #12 LT TORRES proximal -Primary Dressing Applied Mepilex Border Mepilex Border -Primary Dressing Covered/Secured with Dry Gauze -Mepilex Border 1 1 Right -Lotion applied to leg before Yes compression wrap Left -Compression Wrap Silvestre Wrap -Other silvestre wrap joseph -Lotion applied to leg before Yes compression wrap -Multi-Layered Wrap Application Multi-Layer Comp - Bilat ($ ) Treatment Response Procedure Tolerated Well Pain Scale: 0-10 Numeric Is Patient Pain Free? Yes Yes Yes WC - Visit Discharge Discharge Condition Stable Stable Stable Ambulatory Status Ambulatory Ambulatory Ambulatory, Walker Transportation Private Auto Private Auto Clinical Summary of Care Provided Yes Yes Assessment/Plan Assessment/Plan (1) Non-pressure chronic ulcer of other part of left lower leg with fat layer exposed: CODE(S): L97.822 - Non-pressure chronic ulcer of other part of left lower leg with fat layer exposed PLAN: Patient was examined and evaluated. All findings were discussed with the patient. All questions were answered to the patient's satisfaction. Excisional debridement of the right leg ulceration down to and including subcutaneous tissue with a number 3 mm dermal curette without incident. Predebridement measurement was 1.9 x 0.3 x 0.1 cm. Postdebridement measurement is 2.0 x 0.4 x 0.2 cm. Excisional debridement of the left distal leg ulceration down to and including subcutaneous tissue with a number 3 mm dermal curette without incident. Predebridement measurement was 0.5 x 0.4 x 0.1 cm. Postdebridement measurement is 0.6 x 0.5 x 0.1 cm. Excisional debridement down to including subcutaneous tissue of the left proximal ulceration with a number 3 mm dermal curette without incident. Predebridement measurement is sanguinous crust. Postdebridement measurement is 0.8 x 0.5 x 0.2 cm. EpiFix 18 mm disc was applied to the left full-thickness ulceration with 100% use. 10th application. The graft site was free and clear of any infection. The wound/skin graft substitute was dressed with nonadherent bandage secured in place with Steri-Strips followed by bolster dressing as well as a Silvestre wrap to left lower extremity. Culture taken from right leg for increased pain and will place the patient on oral antibiotics if needed. The patient's right leg ulceration skin was reeducated with Steri-Strips and dressed with triple antibiotic dry sterile dressing and silvestre wrap. Follow-up at the wound care center with Dr. Lewis in 1 week. (2) Other specified peripheral vascular diseases: CODE(S): I73.89 - Other specified peripheral vascular diseases (3) Non-pressure chronic ulcer of other part of right lower leg with fat layer exposed: CODE(S): L97.812 - Non-pressure chronic ulcer of other part of right lower leg with fat layer exposed
== END 2024-07-20 23:59 | disposition home or self-care (01) ==
LOC: WC 13:45
PROVIDERS: PCP Internal Medicine; Referring Provider Internal Medicine; Visit Provider Podiatrist Foot & Ankle Surgery
DX: E11.622 Type 2 diabetes mellitus with other skin ulcer (principal); L97.822 Non-pressure chronic ulcer of other part of left lower leg with fat layer exposed; L97.812 Non-pressure chronic ulcer of other part of right lower leg with fat layer exposed; E11.65 Type 2 diabetes mellitus with hyperglycemia; I73.89 Other specified peripheral vascular diseases
CPT/HCPCS: 11042; 15271; 29581; 87070; 87075; 87077; 87186; 87205; Q4186

== ENCOUNTER 2024-08-07 14:30 | Outpatient (RCR) | payer MEDICAID, SELFPAY ==
[2024-07-21 00:15] VITALS: BP 167/87; PULSE 74; RESP 20; TEMP 36.5; BMI 51.5
[2024-07-24 15:45] VITALS: BP 155/89; PULSE 99; RESP 18; TEMP 36.3; BMI 51.5
--- NOTE | 2024-07-24 16:44 | PCM.WC.PN ---
History of Present Illness Date of Service: 07/24/24 Chief Complaint: Left anterior leg ulcer History of Wound: 58-year-old female with left leg wound secondary to trauma. Patient is diabetic controlled however she has elevated blood sugar secondary to bilateral ear infections. Subjective Subjective Ms. Lang is a 58-year-old female presenting to clinic today with chief complaint of bilateral full-thickness ulceration. Patient left her dressing clean dry and intact. She does get home health care for dressing changes. Denies any new onset of trauma. Denies constitutional symptoms. No other pedal plaints at this time. Objective Data Objective Data Vital Signs: Vital Signs Temp Pulse Resp BP O2 Flow Rate 97.3 F L 99 18 155/89 H 2 07/24/24 15:45 07/24/24 15:45 07/24/24 15:45 07/24/24 15:45 07/21/24 00:15 Oxygen Flow Rate (L/min) 2 Weight: 140.614 kg Body Mass Index (BMI) 51.5 Physical Exam Narrative Vascular: DP and PT pulse are palpable. CFT is brisk to all digits of the left lower extremity. Nonpitting edema appreciated left lower extremity. Skin temperature great is warm to warm from proximal ankle to distal digit bilateral. No focal increase appreciated. Evidence of hemosiderin deposits bilateral. Neurological: Light touch intact. Protective station is absent. Dermatological: Full-thickness wound to the right lower extremity secondary laceration measuring 1.1 x 0.4 x 0.1 cm. Wound base is granular nature. Evidence of sanguinous crust to the left lower extremity proximal and distal ulceration. Excisional debridement down to and including subcutaneous tissue of the right lower extremity full-thickness ulceration with a number 3 mm dermal curette without incident. Predebridement measurement was 0.9 x 0.2 x 0.1 cm. Postdebridement measurement is 1.1 x 0.4 x 0.1 cm. Musculoskeletal: Mild pain to palpation to the right lower extremity full-thickness wound. No pain with calf pressure. Debridement Note Debridement Note Debridement Free Text: Excisional debridement down to and including subcutaneous tissue of the right lower extremity full-thickness ulceration with a number 3 mm dermal curette without incident. Predebridement measurement was 0.9 x 0.2 x 0.1 cm. Postdebridement measurement is 1.1 x 0.4 x 0.1 cm. Post-Debridement Measurements and Additional Note: Post-Debridement Measurements/Treatment NILO - Nurse 1 - General Ulcer Assessment Start: 07/24/24 15:45 Freq: Status: Active Protocol: PERRY Activity Type Activity Date Activity User E-sign Co-sign Detail Recorded Client Recorded Date Recorded By Document 07/24/24 15:45 RICKIE [id number] 07/24/24 15:52 07/24/24 15:45 WC - Today's Visit Information Type of service Follow-up Visit (Physician/[employer] ) Arrival Mode Ambulatory Patient Identification Verified (Name & Yes ) Patient Requires Transmission-Based No Precautions Height and Weight Body Mass Index (BMI) 51.5 BMI Classification Obese Vital Signs Temperature (97.8 F-99.1 F) 97.3 F L Temperature Source Temporal Pulse Rate (60-100) 99 Pulse Location Monitor Respiratory Rate (12-18) 18 Respiratory rate source Observation Blood Pressure (90/60-120/80) 155/89 H Blood Pressure Mean (mm Hg) 111 Source Monitor Position Semi-Fowlers Blood Pressure Location Right Forearm History Since Last Visit- (Skip if this is Patient's initial visit) Have you changed medications since your No last visit? Any new allergies or adverse reactions No Had a fall/change in ADL's that may No increase risk of falls Signs or symptoms of abuse and/or No neglect since last visit Have you been in the hospital since your No last visit? Has dressing in place as prescribed Yes Has compression in place as prescribed Yes Has offloadiing in place as prescribed N/A Pain Scale: 0-10 Numeric Is Patient Pain Free? No - Nurse 1 - General Ulcer Measurement Start: 07/24/24 15:45 Freq: Status: Active Protocol: Activity Type Activity Date Activity User E-sign Co-sign Detail Recorded Client Recorded Date Recorded By Document 07/24/24 15:45 [id number] 07/24/24 15:52 07/24/24 15:45 Wound Center Nurse 1 #12 LT TORRES proximal -Current Size (cm) - Length 0.1 -Current Size (cm) - Width 0.1 -Current Size (cm) - Depth 0.1 -Total Square Cm 0.01 -Exudate Amt Small -Exudate Type Sanguineous -Structure Exposed N/A -Texture (Verónica-wound Skin Appearance) No Abnormality -Moisture (Verónica-wound Skin Appearance) No Abnormality -Color (Verónica-wound Skin Appearance) No Abnormality -Temperature (Verónica-wound Skin No Abnormality Appearance) (Pt Warm) -Tenderness on Palpation (Verónica-wound Yes Skin Appearance) -Ulcer Cleansing Rinsed/ Irrigated with Saline -Foul Odor after Cleansing No -Anesthetic Used 5% Lidocaine Gel #16 DISTAL LT TORRES -Current Size (cm) - Length 0.1 -Current Size (cm) - Width 0.1 -Current Size (cm) - Depth 1 -Total Square Cm 0.01 -Epithelialization Large 67-100% -Exudate Amt None Present -Slough/Fibrin No -Necrosis Amt None Present (0 %) -Structure Exposed N/A -Texture (Verónica-wound Skin Appearance) No Abnormality -Moisture (Verónica-wound Skin Appearance) No Abnormality -Color (Verónica-wound Skin Appearance) No Abnormality -Temperature (Verónica-wound Skin No Abnormality Appearance) (Pt Warm) -Ulcer Cleansing Rinsed/ Irrigated with Saline -Foul Odor after Cleansing No -Anesthetic Used 5% Lidocaine Gel #15 RT LAT LE -Current Size (cm) - Length 1.5 -Current Size (cm) - Width 0.4 -Current Size (cm) - Depth 0.1 -Total Square Cm 0.60 -Epithelialization Medium 34-66% -Tunneling No -Undermining/Tunneling No -Exudate Amt Small -Exudate Type Serosanguineous -Wound Margin Flat & Intact -Granulation Amt Large (67-100%) -Granulation Quality [place] -Necrosis Amt None Present (0 %) -Structure Exposed N/A -Texture (Verónica-wound Skin Appearance) No Abnormality -Moisture (Verónica-wound Skin Appearance) No Abnormality -Color (Verónica-wound Skin Appearance) No Abnormality -Temperature (Verónica-wound Skin No Abnormality Appearance) (Pt Warm) -Tenderness on Palpation (Verónica-wound Yes Skin Appearance) -Ulcer Cleansing Rinsed/ Irrigated with Saline -Foul Odor after Cleansing No -Anesthetic Used 5% Lidocaine Gel Right Calf (cm) 48.5 Right Ankle (cm) 24 Left Calf (cm) 40.5 Left Ankle (cm) 23.5 WC - Nurse 2 - General Ulcer CM Notes Start: 07/24/24 15:45 Freq: Status: Active Protocol: Activity Type Activity Date Activity User E-sign Co-sign Detail Recorded Client Recorded Date Recorded By Document 07/24/24 16:01 JF [id number] 07/24/24 16:04 JF 07/24/24 16:01 Wound Center Nurse 2 #12 LT TORRES proximal -Correct Patient No -Correct Side, Site, Position No -Correct Procedure No -Procedure Performed No #16 DISTAL LT TORRES -Correct Patient No -Correct Side, Site, Position No -Correct Procedure No -Procedure Performed No -Wound/Ulcer Outcome Not Healed #15 RT LAT LE -Time 16:03 -Correct Patient Yes -Correct Side, Site, Position Yes -Correct Procedure Yes -Procedure Performed Yes -Type of Procedure Debridement -Clinical Debridement Subcutaneous -Tissue Removed Subcutaneous -Post Debridement (cm) - Length 1.1 -Post Debridement (cm) - Width 0.4 -Post Debridement (cm) - Depth 0.1 -Total Square (Post) (cm) 0.44 -Area of Debridement (cm) - Length 1.1 -Area of Debridement (cm) - Width 0.4 -Total Square (Area) (cm) 0.44 -Tunneling No -Undermining/Tunneling No -Circular Undermining No -Wound/Ulcer Outcome Not Healed -Ulcer Cleansing Rinsed/ Irrigated with Saline -Foul Odor after Cleansing No -Bioengineered Tissue No -Bleeding Controlled with Pressure -Treatment Response Procedure Tolerated Well -Offloading No -Debridement - Subq, 1st 20sq cm Yes Pain Scale: 0-10 Numeric Is Patient Pain Free? Yes WC - Nurse 3 - General Ulcer D/C NN Start: 07/24/24 15:45 Freq: Status: Active Protocol: Activity Type Activity Date Activity User E-sign Co-sign Detail Recorded Client Recorded Date Recorded By Document 07/24/24 16:09 DL [id number] 07/24/24 16:11 DL 07/24/24 16:09 Wound Care Center Nurse 3 #16 DISTAL LT TORRES -Ulcer Cleansing Rinsed/ Irrigated with Saline -Foul Odor after Cleansing No -Primary Dressing Applied Mepilex Border, Promogran Latisha Matter -Mepilex Border 1 -Promogran Latisha Matter 1 #15 RT LAT LE -Ulcer Cleansing Rinsed/ Irrigated with Saline -Foul Odor after Cleansing No -Primary Dressing Applied Mepilex Border -Other Dressing betadine rle -Mepilex Border 1 joseph -Compression Wrap Silvestre Wrap Treatment Response Procedure Tolerated Well Pain Scale: 0-10 Numeric Is Patient Pain Free? Yes WC - Visit Discharge Discharge Condition Stable Ambulatory Status Ambulatory Transportation Private Auto Assessment/Plan Assessment/Plan (1) Non-pressure chronic ulcer of other part of right lower leg with fat layer exposed: CODE(S): L97.812 - Non-pressure chronic ulcer of other part of right lower leg with fat layer exposed PLAN: Patient was examined and evaluated. All findings were discussed with the patient. All questions were answered to the patient's satisfaction. Excisional debridement down to and including subcutaneous tissue of the right lower extremity full-thickness ulceration with a number 3 mm dermal curette without incident. Predebridement measurement was 0.9 x 0.2 x 0.1 cm. Postdebridement measurement is 1.1 x 0.4 x 0.1 cm. Right lower extremities were cleaned and patted dry. The full-thickness wound was dressed with Betadine soaked gauze dry sterile dressing and Silvestre wrap. Silvestre wrap was applied to the left lower extremity. Review of the patient's cultures show evidence of Staph aureus and the patient will be placed on doxycycline 100 mg twice daily for 2 weeks. Patient will continue home health care for dressing changes. Follow-up at the wound care center with Dr. Lewis in 1 week.
[2024-08-07 15:16] VITALS: BP 135/76; PULSE 83; RESP 18; BMI 51.5
--- NOTE | 2024-08-07 15:54 | PCM.WC.PN ---
History of Present Illness Date of Service: 08/07/24 Chief Complaint: Left anterior leg ulcer History of Wound: 58-year-old female with left leg wound secondary to trauma. Patient is diabetic controlled however she has elevated blood sugar secondary to bilateral ear infections. Subjective Subjective Ms. Lang is a 58-year-old diabetic female presented wound care center today for follow-up evaluation of bilateral leg ulceration. Patient admits that her right leg is now healed. She completed her antibiotic. She still has wounds to the left leg but stable with no sign of infection. Denies any new onset of trauma. Denies constitutional symptoms. No other pedal complaints at this time. Objective Data Objective Data Vital Signs: Vital Signs Temp Pulse Resp BP O2 Del Method O2 Flow Rate 97.3 F L 83 18 135/76 H Room Air 2 07/24/24 15:45 08/07/24 15:16 08/07/24 15:16 08/07/24 15:16 08/07/24 15:16 07/21/24 00:15 Oxygen Flow Rate (L/min) 2 Oxygen Delivery Method Room Air Weight: 140.614 kg Body Mass Index (BMI) 51.5 Physical Exam Narrative Vascular: DP and PT pulse are palpable. CFT is brisk to all digits of the left lower extremity. Nonpitting edema appreciated left lower extremity. Skin temperature great is warm to warm from proximal ankle to distal digit bilateral. No focal increase appreciated. Evidence of hemosiderin deposits bilateral. Neurological: Light touch intact. Protective station is absent. Dermatological: Full-thickness wound to the right lower extremity is now healed. Evidence of 2 full-thickness ulceration to left lower extremity 1 proximal and distal. Proximal ulceration measures 0.6 x 0.4 x 0.1 cm. Left distal ulceration measures 0.4 x 0.4 x 0.1 cm. Wound base granular nature no sign of infection. Excisional debridement down to and including subcutaneous tissue of the left lower extremity full-thickness ulceration to the proximal left leg with a number 3 mm dermal curette without incident. Predebridement measurement is sanguinous crust. Postdebridement measurement is 0.6 x 0.4 x 0.1 cm. Excisional debridement down to and including subcutaneous tissue of the left lower extremity full-thickness ulceration to the distal left leg with a number 3 mm dermal curette without incident. Predebridement measurement is sanguinous crust. Postdebridement measurement is 0.4 x 0.4 x 0.1 cm. Musculoskeletal: Mild pain to palpation to the right lower extremity full-thickness wound. No pain with calf pressure. Debridement Note Debridement Note Debridement Free Text: Excisional debridement down to and including subcutaneous tissue of the left lower extremity full-thickness ulceration to the proximal left leg with a number 3 mm dermal curette without incident. Predebridement measurement is sanguinous crust. Postdebridement measurement is 0.6 x 0.4 x 0.1 cm. Excisional debridement down to and including subcutaneous tissue of the left lower extremity full-thickness ulceration to the distal left leg with a number 3 mm dermal curette without incident. Predebridement measurement is sanguinous crust. Postdebridement measurement is 0.4 x 0.4 x 0.1 cm. Post-Debridement Measurements and Additional Note: Post-Debridement Measurements/Treatment - Nurse 1 - General Ulcer Assessment Start: 07/24/24 15:45 Freq: Status: Active Protocol: PERRY Activity Type Activity Date Activity User E-sign Co-sign Detail Recorded Client Recorded Date Recorded By Document 07/24/24 15:45 CP [id number] 07/24/24 15:52 CP Document 08/07/24 15:16 KW [id number] 08/07/24 15:25 KW 07/24/24 08/07/24 15:45 15:16 - Today's Visit Information Type of service Follow-up Visit Follow-up Visit (Physician/BILINGUAL TEACHER (Physician/BILINGUAL TEACHER ) ) Arrival Mode Ambulatory Ambulatory, Walker Accompanied by DAD Patient Identification Verified (Name & Yes Yes ) Patient Requires Transmission-Based No Precautions Height and Weight Body Mass Index (BMI) 51.5 51.5 BMI Classification Obese Obese Vital Signs Temperature (97.8 F-99.1 F) 97.3 F L Temperature Source Temporal Pulse Rate (60-100) 99 83 Pulse Location Monitor Monitor Respiratory Rate (12-18) 18 18 Respiratory rate source Observation Observation Oxygen Delivery Method Room Air Blood Pressure (90/60-120/80) 155/89 H 135/76 H Blood Pressure Mean (mm Hg) 111 95 Source Monitor Monitor Position Semi-Fowlers Semi-Fowlers Blood Pressure Location Right Forearm Left Arm History Since Last Visit- (Skip if this is Patient's initial visit) Have you changed medications since your No No last visit? Any new allergies or adverse reactions No No Had a fall/change in ADL's that may No No increase risk of falls Signs or symptoms of abuse and/or No No neglect since last visit Have you been in the hospital since your No No last visit? Has dressing in place as prescribed Yes Yes Has compression in place as prescribed Yes No Has offloadiing in place as prescribed N/A N/A Experienced any changes in pain level or No management Left Footwear Regular Shoe Right Footwear Regular Shoe Pain Scale: 0-10 Numeric Is Patient Pain Free? No Yes WC - Nurse 1 - General Ulcer Measurement Start: 07/24/24 15:45 Freq: Status: Active Protocol: Activity Type Activity Date Activity User E-sign Co-sign Detail Recorded Client Recorded Date Recorded By Document 07/24/24 15:45 CP [id number] 07/24/24 15:52 CP Document 08/07/24 15:16 KW [id number] 08/07/24 15:25 KW 07/24/24 08/07/24 15:45 15:16 Wound Center Nurse 1 #15 RT LAT LE -Current Size (cm) - Length 1.5 0 -Current Size (cm) - Width 0.4 0 -Current Size (cm) - Depth 0.1 0 -Total Square Cm 0.60 0 -Epithelialization Medium 34-66% -Tunneling No -Undermining/Tunneling No -Exudate Amt Small -Exudate Type Serosanguineous -Wound Margin Flat & Intact -Granulation Amt Large (67-100%) -Granulation Quality [place] -Necrosis Amt None Present (0 %) -Structure Exposed N/A -Texture (Verónica-wound Skin Appearance) No Abnormality -Moisture (Verónica-wound Skin Appearance) No Abnormality -Color (Verónica-wound Skin Appearance) No Abnormality -Temperature (Verónica-wound Skin No Abnormality Appearance) (Pt Warm) -Tenderness on Palpation (Verónica-wound Yes Skin Appearance) -Ulcer Cleansing Rinsed/ Irrigated with Saline -Foul Odor after Cleansing No -Anesthetic Used 5% Lidocaine Gel -Wound Comment(s) HEALED #12 LT TORRES proximal -Current Size (cm) - Length 0.1 -Current Size (cm) - Width 0.1 -Current Size (cm) - Depth 0.1 -Total Square Cm 0.01 -Exudate Amt Small -Exudate Type Sanguineous -Structure Exposed N/A -Texture (Verónica-wound Skin Appearance) No Abnormality -Moisture (Verónica-wound Skin Appearance) No Abnormality -Color (Verónica-wound Skin Appearance) No Abnormality -Temperature (Verónica-wound Skin No Abnormality Appearance) (Pt Warm) -Tenderness on Palpation (Verónica-wound Yes Skin Appearance) -Ulcer Cleansing Rinsed/ Irrigated with Saline -Foul Odor after Cleansing No -Anesthetic Used 5% Lidocaine Gel #16 DISTAL LT TORRES -Current Size (cm) - Length 0.1 0.5 -Current Size (cm) - Width 0.1 0.4 -Current Size (cm) - Depth 1 0.1 -Total Square Cm 0.01 0.20 -Epithelialization Large 67-100% -Exudate Amt None Present None Present -Wound Margin Distinct, Outline Attached -Granulation Amt Large (67-100%) -Granulation Quality Red -Slough/Fibrin No -Necrosis Amt None Present (0 %) -Structure Exposed N/A -Texture (Verónica-wound Skin Appearance) No Abnormality Assessed -Moisture (Verónica-wound Skin Appearance) No Abnormality Assessed -Color (Verónica-wound Skin Appearance) No Abnormality Assessed -Temperature (Verónica-wound Skin No Abnormality No Abnormality Appearance) (Pt Warm) (Pt Warm) -Tenderness on Palpation (Verónica-wound No Skin Appearance) -Ulcer Cleansing Rinsed/ Rinsed/ Irrigated with Irrigated with Saline Saline -Foul Odor after Cleansing No No -Anesthetic Used 5% Lidocaine 5% Lidocaine Gel Gel Right Calf (cm) 48.5 Right Ankle (cm) 24 Left Calf (cm) 40.5 Left Ankle (cm) 23.5 WC - Nurse 2 - General Ulcer CM Notes Start: 07/24/24 15:45 Freq: Status: Active Protocol: Activity Type Activity Date Activity User E-sign Co-sign Detail Recorded Client Recorded Date Recorded By Document 07/24/24 16:01 CARLOS [id number] 07/24/24 16:04 Document 08/07/24 15:29 JF [id number] 08/07/24 15:32 JF 07/24/24 08/07/24 16:01 15:29 Wound Center Nurse 2 #15 RT LAT LE -Time 16:03 -Correct Patient Yes No -Correct Side, Site, Position Yes No -Correct Procedure Yes No -Procedure Performed Yes No -Type of Procedure Debridement -Clinical Debridement Subcutaneous -Tissue Removed Subcutaneous -Post Debridement (cm) - Length 1.1 0 -Post Debridement (cm) - Width 0.4 0 -Post Debridement (cm) - Depth 0.1 0 -Total Square (Post) (cm) 0.44 0 -Area of Debridement (cm) - Length 1.1 0 -Area of Debridement (cm) - Width 0.4 0 -Total Square (Area) (cm) 0.44 0 -Tunneling No -Undermining/Tunneling No -Circular Undermining No -Wound/Ulcer Outcome Not Healed Healed- Epithelialized -Ulcer Cleansing Rinsed/ Irrigated with Saline -Foul Odor after Cleansing No -Bioengineered Tissue No -Bleeding Controlled with Pressure -Treatment Response Procedure Tolerated Well -Offloading No -Debridement - Subq, 1st 20sq cm Yes #12 LT TORRES proximal -Correct Patient No -Correct Side, Site, Position No -Correct Procedure No -Procedure Performed No 17-LEFT SUPERIOR LEG -Time 15:31 -Correct Patient Yes -Correct Side, Site, Position Yes -Correct Procedure Yes -Procedure Performed Yes -Type of Procedure Debridement -Clinical Debridement Subcutaneous -Tissue Removed Subcutaneous -Post Debridement (cm) - Length 0.6 -Post Debridement (cm) - Width 0.4 -Post Debridement (cm) - Depth 0.1 -Total Square (Post) (cm) 0.24 -Area of Debridement (cm) - Length 0.6 -Area of Debridement (cm) - Width 0.4 -Total Square (Area) (cm) 0.24 -Tunneling No -Undermining/Tunneling No -Circular Undermining No -Wound/Ulcer Outcome Not Healed -Ulcer Cleansing Rinsed/ Irrigated with Saline -Foul Odor after Cleansing No -Bioengineered Tissue No -Bleeding Controlled with Pressure -Treatment Response Procedure Tolerated Well -Offloading No -Debridement - Subq, 1st 20sq cm Yes #16 DISTAL LT TORRES -Time 15:30 -Correct Patient No Yes -Correct Side, Site, Position No Yes -Correct Procedure No Yes -Procedure Performed No Yes -Type of Procedure Debridement -Clinical Debridement Subcutaneous -Tissue Removed Subcutaneous -Post Debridement (cm) - Length 0.4 -Post Debridement (cm) - Width 0.4 -Post Debridement (cm) - Depth 0.1 -Total Square (Post) (cm) 0.16 -Area of Debridement (cm) - Length 0.4 -Area of Debridement (cm) - Width 0.4 -Total Square (Area) (cm) 0.16 -Tunneling No -Undermining/Tunneling No -Circular Undermining No -Wound/Ulcer Outcome Not Healed Not Healed -Ulcer Cleansing Rinsed/ Irrigated with Saline -Foul Odor after Cleansing No -Bioengineered Tissue No -Bleeding Controlled with Pressure -Treatment Response Procedure Tolerated Well -Offloading No -Debridement - Subq, 1st 20sq cm No Pain Scale: 0-10 Numeric Is Patient Pain Free? Yes Yes - Nurse 3 - General Ulcer D/C NN Start: 07/24/24 15:45 Freq: Status: Active Protocol: Activity Type Activity Date Activity User E-sign Co-sign Detail Recorded Client Recorded Date Recorded By Document 07/24/24 16:09 DL [id number] 07/24/24 16:11 DL Document 08/07/24 15:41 [facility] [id number] 08/07/24 15:42 [facility] 07/24/24 08/07/24 16:09 15:41 Wound Care Center Nurse 3 #15 RT LAT LE -Ulcer Cleansing Rinsed/ Irrigated with Saline -Foul Odor after Cleansing No -Primary Dressing Applied Mepilex Border -Other Dressing betadine rle -Mepilex Border 1 17-LEFT SUPERIOR LEG -Ulcer Cleansing Rinsed/ Irrigated with Saline -Foul Odor after Cleansing No -Primary Dressing Applied Fibracol Plus 4x4,Mepilex Border -Fibracol Plus 4x4 1 -Mepilex Border 1 #16 DISTAL LT TORRES -Ulcer Cleansing Rinsed/ Rinsed/ Irrigated with Irrigated with Saline Saline -Foul Odor after Cleansing No No -Primary Dressing Applied Mepilex Border, Fibracol Plus Promogran 4x4,Mepilex Latisha Matter Border -Fibracol Plus 4x4 0 -Mepilex Border 1 1 -Promogran Latisha Matter 1 joseph -Compression Wrap Silvestre Wrap Silvestre Wrap Treatment Response Procedure Procedure Tolerated Well Tolerated Well Pain Scale: 0-10 Numeric Is Patient Pain Free? Yes Yes - Visit Discharge Discharge Condition Stable Stable Ambulatory Status Ambulatory Ambulatory, Walker Transportation Private Auto Private Auto Assessment/Plan Assessment/Plan (1) Non-pressure chronic ulcer of other part of left lower leg with fat layer exposed: CODE(S): L97.822 - Non-pressure chronic ulcer of other part of left lower leg with fat layer exposed PLAN: Patient was examined and evaluated. All findings were discussed with the patient. All questions were answered to the patient's satisfaction. Excisional debridement down to and including subcutaneous tissue of the left lower extremity full-thickness ulceration to the proximal left leg with a number 3 mm dermal curette without incident. Predebridement measurement is sanguinous crust. Postdebridement measurement is 0.6 x 0.4 x 0.1 cm. Excisional debridement down to and including subcutaneous tissue of the left lower extremity full-thickness ulceration to the distal left leg with a number 3 mm dermal curette without incident. Predebridement measurement is sanguinous crust. Postdebridement measurement is 0.4 x 0.4 x 0.1 cm. Left lower extremities were cleaned and patted dry. The 2 ulcerations to left leg were dressed with fibrin call dry sterile dressing and multilayer compression wrap. Patient continue strict blood sugar control. Right leg ulceration secondary to laceration is now healed. Follow-up at the wound care center with Dr. Lewis in 3 week.
== END 2024-08-19 23:59 | disposition home or self-care (01) ==
LOC: WC 14:30
PROVIDERS: PCP Internal Medicine; Referring Provider Internal Medicine; Visit Provider Podiatrist Foot & Ankle Surgery
DX: E11.622 Type 2 diabetes mellitus with other skin ulcer (principal); L97.812 Non-pressure chronic ulcer of other part of right lower leg with fat layer exposed; E11.65 Type 2 diabetes mellitus with hyperglycemia
CPT/HCPCS: 11042

== ENCOUNTER 2024-09-18 12:15 | Outpatient (RCR) | payer MEDICAID, SELFPAY ==
[2024-08-20 00:35] VITALS: BP 167/87; PULSE 74; RESP 20; TEMP 36.5; BMI 51.5
[2024-08-28 15:16] VITALS: BP 167/85; PULSE 79; RESP 18; TEMP 35.9; BMI 51.5
--- NOTE | 2024-08-28 16:33 | PN.PCM_ITS ---
History of Present Illness Date of Service: 08/28/24 Chief Complaint: Left anterior leg ulcer History of Wound: 58-year-old female with left leg wound secondary to trauma. Patient is diabetic controlled however she has elevated blood sugar secondary to bilateral ear infections. Subjective Subjective Ms. Lang is a 58-year-old diabetic female presenting to wound care center today with new wound to the distal left leg secondary to trauma. Patient states that she bumped her leg when using her object grabber at home. She states that the wound base is granular and shows no sign of infection. She denies any pain to the left leg. She denies constitutional symptoms. No other pedal complaints at this time. Objective Data Objective Data Vital Signs: Vital Signs Temp Pulse Resp BP O2 Del Method O2 Flow Rate 96.7 F L 79 18 167/85 H Room Air 2 08/28/24 15:16 08/28/24 15:16 08/28/24 15:16 08/28/24 15:16 08/28/24 15:16 08/20/24 00:35 Oxygen Flow Rate (L/min) 2 Oxygen Delivery Method Room Air Weight: 140.614 kg Body Mass Index (BMI) 51.5 Physical Exam Narrative Vascular: DP and PT pulse are palpable. CFT is brisk to all digits of the left lower extremity. Nonpitting edema appreciated left lower extremity. Skin temperature great is warm to warm from proximal ankle to distal digit bilateral. No focal increase appreciated. Evidence of hemosiderin deposits bilateral. Neurological: Light touch intact. Protective station is absent. Dermatological: Full-thickness ulceration to the left lower extremity distally measuring 0.9 x 0.9 x 0.1 cm. Wound base is granular nature. No sign of infection. Excisional debridement down to including subcutaneous tissue with a number 3 mm dermal curette to the left lower extremity distally ulceration without incident. Predebridement measurement was 0.8 x 0.8 x 0.1 cm. Postdebridement measurement is 0.9 x 0.9 x 0.1 cm. Musculoskeletal: No pain to palpation to left lower extremity. No pain with calf pressure. Debridement Note Debridement Note Debridement Free Text: Excisional debridement down to including subcutaneous tissue with a number 3 mm dermal curette to the left lower extremity distally ulceration without incident. Predebridement measurement was 0.8 x 0.8 x 0.1 cm. Postdebridement measurement is 0.9 x 0.9 x 0.1 cm. Post-Debridement Measurements and Additional Note: Post-Debridement Measurements/Treatment WC - Nurse 1 - General Ulcer Assessment Start: 08/28/24 15:16 Freq: Status: Active Protocol: PERRY Activity Type Activity Date Activity User E-sign Co-sign Detail Recorded Client Recorded Date Recorded By Document 08/28/24 15:16 ANNIE [id number] 08/28/24 15:26 08/28/24 15:16 WC - Today's Visit Information Type of service Follow-up Visit (Physician/PUBLIC HEALTH INSPECTOR ) Arrival Mode Ambulatory Patient Identification Verified (Name & Yes ) Height and Weight Body Mass Index (BMI) 51.5 BMI Classification Obese Vital Signs Temperature (97.8 F-99.1 F) 96.7 F L Temperature Source Temporal Pulse Rate (60-100) 79 Pulse Location Monitor Respiratory Rate (12-18) 18 Respiratory rate source Observation Oxygen Delivery Method Room Air Blood Pressure (90/60-120/80) 167/85 H Blood Pressure Mean (mm Hg) 112 Source Monitor Position Semi-Fowlers Blood Pressure Location Left Arm History Since Last Visit- (Skip if this is Patient's initial visit) Have you changed medications since your No last visit? Any new allergies or adverse reactions No Had a fall/change in ADL's that may No increase risk of falls Signs or symptoms of abuse and/or No neglect since last visit Have you been in the hospital since your No last visit? Has dressing in place as prescribed Yes Has compression in place as prescribed Yes Has offloadiing in place as prescribed N/A Experienced any changes in pain level or No management Left Footwear Regular Shoe Right Footwear Regular Shoe Pain Scale: 0-10 Numeric Is Patient Pain Free? Yes - Nurse 1 - General Ulcer Measurement Start: 08/28/24 15:16 Freq: Status: Active Protocol: Activity Type Activity Date Activity User E-sign Co-sign Detail Recorded Client Recorded Date Recorded By Document 08/28/24 15:16 ANNIE [id number] 08/28/24 15:26 KW 08/28/24 15:16 Wound Center Nurse 1 #16 DISTAL LT TORRES -Current Size (cm) - Length 1 -Current Size (cm) - Width 0.7 -Current Size (cm) - Depth 0.1 -Total Square Cm 0.7 -Exudate Amt Medium -Exudate Type Serosanguineous -Wound Margin Distinct, Outline Attached -Granulation Amt Large (67-100%) -Granulation Quality Red -Texture (Verónica-wound Skin Appearance) Assessed -Moisture (Verónica-wound Skin Appearance) Assessed -Color (Verónica-wound Skin Appearance) Assessed -Temperature (Verónica-wound Skin No Abnormality Appearance) (Pt Warm) -Tenderness on Palpation (Verónica-wound No Skin Appearance) -Ulcer Cleansing Rinsed/ Irrigated with Saline -Anesthetic Used 5% Lidocaine Gel 17-LEFT SUPERIOR LEG -Current Size (cm) - Length 0.1 -Current Size (cm) - Width 0.1 -Current Size (cm) - Depth 0.1 -Total Square Cm 0.01 -Exudate Amt None Present -Texture (Verónica-wound Skin Appearance) Assessed -Moisture (Verónica-wound Skin Appearance) Assessed -Color (Verónica-wound Skin Appearance) Assessed -Temperature (Verónica-wound Skin No Abnormality Appearance) (Pt Warm) -Tenderness on Palpation (Verónica-wound No Skin Appearance) -Ulcer Cleansing Rinsed/ Irrigated with Saline -Foul Odor after Cleansing No WC - Nurse 2 - General Ulcer CM Notes Start: 08/28/24 15:16 Freq: Status: Active Protocol: Activity Type Activity Date Activity User E-sign Co-sign Detail Recorded Client Recorded Date Recorded By Document 08/28/24 15:31 CARLOS [id number] 08/28/24 15:32 CARLOS 08/28/24 15:31 Wound Center Nurse 2 #16 DISTAL LT TORRES -Correct Patient No -Correct Side, Site, Position No -Correct Procedure No -Procedure Performed No -Post Debridement (cm) - Length 0 -Post Debridement (cm) - Width 0 -Post Debridement (cm) - Depth 0 -Total Square (Post) (cm) 0 -Area of Debridement (cm) - Length 0 -Area of Debridement (cm) - Width 0 -Total Square (Area) (cm) 0 -Wound/Ulcer Outcome Healed- Epithelialized 17-LEFT SUPERIOR LEG -Time 15:32 -Correct Patient Yes -Correct Side, Site, Position Yes -Correct Procedure Yes -Procedure Performed Yes -Type of Procedure Debridement -Clinical Debridement Subcutaneous -Post Debridement (cm) - Length 0.9 -Post Debridement (cm) - Width 0.9 -Post Debridement (cm) - Depth 0.1 -Total Square (Post) (cm) 0.81 -Area of Debridement (cm) - Length 0.9 -Area of Debridement (cm) - Width 0.9 -Total Square (Area) (cm) 0.81 -Tunneling No -Undermining/Tunneling No -Circular Undermining No -Wound/Ulcer Outcome Not Healed -Ulcer Cleansing Rinsed/ Irrigated with Saline -Foul Odor after Cleansing No -Bioengineered Tissue No -Bleeding Controlled with Pressure -Treatment Response Procedure Tolerated Well -Offloading No -Debridement - Subq, 1st 20sq cm Yes Pain Scale: 0-10 Numeric Is Patient Pain Free? Yes - Nurse 3 - General Ulcer D/C NN Start: 08/28/24 15:16 Freq: Status: Active Protocol: Activity Type Activity Date Activity User E-sign Co-sign Detail Recorded Client Recorded Date Recorded By Document 08/28/24 15:46 BMF 0000 08/28/24 15:47 BMF 08/28/24 15:46 Wound Care Center Nurse 3 17-LEFT SUPERIOR LEG -Ulcer Cleansing Rinsed/ Irrigated with Saline -Foul Odor after Cleansing No -Primary Dressing Applied Fibracol Plus 4x4,Mepilex Border -Fibracol Plus 4x4 1 -Mepilex Border 1 joseph -Compression Wrap Silvestre Wrap -Other refused 3m to lle. dr gonzales updated Treatment Response Procedure Tolerated Well Pain Scale: 0-10 Numeric Is Patient Pain Free? Yes - Visit Discharge Discharge Condition Stable Ambulatory Status Ambulatory, Walker Transportation Private Auto Assessment/Plan Assessment/Plan (1) Non-pressure chronic ulcer of other part of left lower leg with fat layer exposed: CODE(S): L97.822 - Non-pressure chronic ulcer of other part of left lower leg with fat layer exposed PLAN: Patient was examined and evaluated. All findings were discussed with the patient. All questions were answered to the patient's satisfaction. Excisional debridement down to including subcutaneous tissue with a number 3 mm dermal curette to the left lower extremity distally ulceration without incident. Predebridement measurement was 0.8 x 0.8 x 0.1 cm. Postdebridement measurement is 0.9 x 0.9 x 0.1 cm. Left lower extremities were cleaned and patted dry. Fibracol followed by dry sterile dressing and Sivlestre wrap was applied to the left lower extremity. The right lower extremity was also dressed with an Silvestre wrap. Patient's home health care will change her dressing every other day. Educated the patient to continue strict blood sugar control. Follow-up at the wound care center with Dr. Gonzales in 1 week. (2) Other specified peripheral vascular diseases: CODE(S): I73.89 - Other specified peripheral vascular diseases
[2024-09-11 12:21] VITALS: BP 146/72; PULSE 83; RESP 18; TEMP 36.4; BMI 51.5
--- NOTE | 2024-09-11 12:37 | PCM.WC.PN ---
History of Present Illness Date of Service: 09/11/24 Chief Complaint: Left anterior leg ulcer History of Wound: 58-year-old female with left leg wound secondary to trauma. Patient is diabetic controlled however she has elevated blood sugar secondary to bilateral ear infections. Subjective Subjective Ms. Lang is a 58-year-old diabetic female present to clinic today for follow-up evaluation of new wound to the left proximal anterior leg. The patient's original wound is now healed. She states that she fell the other day causing a new wound to the proximal left leg. No treatment thus far. Blood sugar under control. Uses nasal cannula with oxygen. Denies constitutional symptoms. No other pedal complaints at this time. Objective Data Objective Data Vital Signs: Vital Signs Temp Pulse Resp BP O2 Del Method O2 Flow Rate 97.6 F L 83 18 146/72 H Nasal Cannula 2 09/11/24 12:21 09/11/24 12:21 09/11/24 12:21 09/11/24 12:21 09/11/24 12:21 08/20/24 00:35 Oxygen Flow Rate (L/min) 2 Oxygen Delivery Method Nasal Cannula Weight: 140.614 kg Body Mass Index (BMI) 51.5 Physical Exam Narrative Vascular: DP and PT pulse are palpable. CFT is brisk to all digits of the left lower extremity. Nonpitting edema appreciated left lower extremity. Skin temperature great is warm to warm from proximal ankle to distal digit bilateral. No focal increase appreciated. Evidence of hemosiderin deposits bilateral. Neurological: Light touch intact. Protective station is absent. Dermatological: Full-thickness ulceration to the left lower extremity proximal measuring 0.7 x 0.6 x 0.1 cm. Wound base is granular nature. No sign of infection. Excisional debridement down to including subcutaneous tissue with a number 3 mm dermal curette to the left lower extremity proximal ulceration without incident. Predebridement measurement was 0.5 x 0.5 x 0.1 cm. Postdebridement measurement is 0.7 x 0.6 x 0.1 cm Musculoskeletal: No pain to palpation to left lower extremity. No pain with calf pressure. Debridement Note Debridement Note Debridement Free Text: Excisional debridement down to including subcutaneous tissue with a number 3 mm dermal curette to the left lower extremity proximal ulceration without incident. Predebridement measurement was 0.5 x 0.5 x 0.1 cm. Postdebridement measurement is 0.7 x 0.6 x 0.1 cm Post-Debridement Measurements and Additional Note: Post-Debridement Measurements/Treatment WC - Nurse 1 - General Ulcer Assessment Start: 08/28/24 15:16 Freq: Status: Active Protocol: PERRY Activity Type Activity Date Activity User E-sign Co-sign Detail Recorded Client Recorded Date Recorded By Document 08/28/24 15:16 KW [id number] 08/28/24 15:26 KW Document 09/11/24 12:21 CP [id number] 09/11/24 12:25 CP 08/28/24 09/11/24 15:16 12:21 WC - Today's Visit Information Type of service Follow-up Visit Follow-up Visit (Physician/DERMATOLOGY PROCEDURAL PHYSICIAN (Physician/DERMATOLOGY PROCEDURAL PHYSICIAN ) ) Arrival Mode Ambulatory Ambulatory, Walker Transfer Assistance None Patient Identification Verified (Name & Yes Yes ) Patient Requires Transmission-Based No Precautions Safety Precautions Fall Prevention Finger Stick Blood Sugar(mg/dl) (if 222 indicated): Blood Sugar Stated by Patient Height and Weight Body Mass Index (BMI) 51.5 51.5 BMI Classification Obese Obese Vital Signs Temperature (97.8 F-99.1 F) 96.7 F L 97.6 F L Temperature Source Temporal Temporal Pulse Rate (60-100) 79 83 Pulse Location Monitor Monitor Respiratory Rate (12-18) 18 18 Respiratory rate source Observation Observation Oxygen Delivery Method Room Air Nasal Cannula Blood Pressure (90/60-120/80) 167/85 H 146/72 H Blood Pressure Mean (mm Hg) 112 96 Source Monitor Monitor Position Semi-Fowlers Semi-Fowlers Blood Pressure Location Left Arm Right Arm History Since Last Visit- (Skip if this is Patient's initial visit) Have you changed medications since your No No last visit? Any new allergies or adverse reactions No No Had a fall/change in ADL's that may No Yes increase risk of falls Signs or symptoms of abuse and/or No No neglect since last visit Have you been in the hospital since your No No last visit? Has dressing in place as prescribed Yes No Has compression in place as prescribed Yes Yes Has offloadiing in place as prescribed N/A N/A Experienced any changes in pain level or No management Left Footwear Regular Shoe Right Footwear Regular Shoe Pain Scale: 0-10 Numeric Is Patient Pain Free? Yes Yes - Nurse 1 - General Ulcer Measurement Start: 08/28/24 15:16 Freq: Status: Active Protocol: Activity Type Activity Date Activity User E-sign Co-sign Detail Recorded Client Recorded Date Recorded By Document 08/28/24 15:16 KW [id number] 08/28/24 15:26 KW Document 09/11/24 12:21 CP [id number] 09/11/24 12:25 CP Edit Result 09/11/24 12:21 CP (1) [id number] 09/11/24 12:27 CP (1) Left Calf (cm) => 47 Left Ankle (cm) => 24 08/28/24 09/11/24 15:16 12:21 Wound Center Nurse 1 #16 DISTAL LT TORRES -Current Size (cm) - Length 1 -Current Size (cm) - Width 0.7 -Current Size (cm) - Depth 0.1 -Total Square Cm 0.7 -Exudate Amt Medium -Exudate Type Serosanguineous -Wound Margin Distinct, Outline Attached -Granulation Amt Large (67-100%) -Granulation Quality Red -Texture (Verónica-wound Skin Appearance) Assessed -Moisture (Verónica-wound Skin Appearance) Assessed -Color (Verónica-wound Skin Appearance) Assessed -Temperature (Verónica-wound Skin No Abnormality Appearance) (Pt Warm) -Tenderness on Palpation (Verónica-wound No Skin Appearance) -Ulcer Cleansing Rinsed/ Irrigated with Saline -Anesthetic Used 5% Lidocaine Gel 17-LEFT SUPERIOR LEG -Current Size (cm) - Length 0.1 0.2 -Current Size (cm) - Width 0.1 0.3 -Current Size (cm) - Depth 0.1 0.1 -Total Square Cm 0.01 0.06 -Photo Taken Yes -Epithelialization Medium 34-66% -Undermining/Tunneling No -Exudate Amt None Present Small -Exudate Type Serosanguineous -Wound Margin Flat & Intact -Slough/Fibrin Yes -Necrosis Amt Small (1-33%) -Necrotic Tissue Type Adherent Slough -Structure Exposed N/A -Texture (Verónica-wound Skin Appearance) Assessed No Abnormality -Moisture (Verónica-wound Skin Appearance) Assessed No Abnormality -Color (Verónica-wound Skin Appearance) Assessed No Abnormality -Temperature (Verónica-wound Skin No Abnormality No Abnormality Appearance) (Pt Warm) (Pt Warm) -Tenderness on Palpation (Verónica-wound No No Skin Appearance) -Ulcer Cleansing Rinsed/ Rinsed/ Irrigated with Irrigated with Saline Saline -Foul Odor after Cleansing No No -Anesthetic Used 5% Lidocaine Gel Left Calf (cm) 47 Left Ankle (cm) 24 - Nurse 2 - General Ulcer CM Notes Start: 08/28/24 15:16 Freq: Status: Active Protocol: Activity Type Activity Date Activity User E-sign Co-sign Detail Recorded Client Recorded Date Recorded By Document 08/28/24 15:31 [id number] 08/28/24 15:32 Document 09/11/24 12:32 [id number] 09/11/24 12:33 08/28/24 09/11/24 15:31 12:32 Wound Center Nurse 2 #16 DISTAL LT TORRES -Correct Patient No -Correct Side, Site, Position No -Correct Procedure No -Procedure Performed No -Post Debridement (cm) - Length 0 -Post Debridement (cm) - Width 0 -Post Debridement (cm) - Depth 0 -Total Square (Post) (cm) 0 -Area of Debridement (cm) - Length 0 -Area of Debridement (cm) - Width 0 -Total Square (Area) (cm) 0 -Wound/Ulcer Outcome Healed- Epithelialized 17-LEFT SUPERIOR LEG -Time 15:32 12:32 -Correct Patient Yes Yes -Correct Side, Site, Position Yes Yes -Correct Procedure Yes Yes -Procedure Performed Yes Yes -Type of Procedure Debridement Debridement -Clinical Debridement Subcutaneous Subcutaneous -Tissue Removed Subcutaneous -Post Debridement (cm) - Length 0.9 0.7 -Post Debridement (cm) - Width 0.9 0.6 -Post Debridement (cm) - Depth 0.1 0.1 -Total Square (Post) (cm) 0.81 0.42 -Area of Debridement (cm) - Length 0.9 0.7 -Area of Debridement (cm) - Width 0.9 0.6 -Total Square (Area) (cm) 0.81 0.42 -Tunneling No No -Undermining/Tunneling No No -Circular Undermining No No -Wound/Ulcer Outcome Not Healed Not Healed -Ulcer Cleansing Rinsed/ Rinsed/ Irrigated with Irrigated with Saline Saline -Foul Odor after Cleansing No No -Bioengineered Tissue No No -Bleeding Controlled with Pressure Pressure -Treatment Response Procedure Procedure Tolerated Well Tolerated Well -Offloading No No -Debridement - Subq, 1st 20sq cm Yes Yes Pain Scale: 0-10 Numeric Is Patient Pain Free? Yes Yes WC - Nurse 3 - General Ulcer D/C NN Start: 08/28/24 15:16 Freq: Status: Active Protocol: Activity Type Activity Date Activity User E-sign Co-sign Detail Recorded Client Recorded Date Recorded By Document 08/28/24 15:46 BMF 0000 08/28/24 15:47 BMF 08/28/24 15:46 Wound Care Center Nurse 3 17-LEFT SUPERIOR LEG -Ulcer Cleansing Rinsed/ Irrigated with Saline -Foul Odor after Cleansing No -Primary Dressing Applied Fibracol Plus 4x4,Mepilex Border -Fibracol Plus 4x4 1 -Mepilex Border 1 joseph -Compression Wrap Silvestre Wrap -Other refused 3m to lle. dr gonzales updated Treatment Response Procedure Tolerated Well Pain Scale: 0-10 Numeric Is Patient Pain Free? 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 All findings were discussed with the patient. All questions were answered to the patient's satisfaction. Excisional debridement down to including subcutaneous tissue with a number 3 mm dermal curette to the left lower extremity proximal ulceration without incident. Predebridement measurement was 0.5 x 0.5 x 0.1 cm. Postdebridement measurement is 0.7 x 0.6 x 0.1 cm Left lower extremities were cleaned and patted dry. Fibracol followed by dry sterile dressing and Silvestre wrap was applied to the left lower extremity. Patient's home health care will change her dressing every other day. Educated the patient to continue strict blood sugar control. Follow-up at the wound care center with Dr. Gonzales in 1 week. (2) Other specified peripheral vascular diseases: CODE(S): I73.89 - Other specified peripheral vascular diseases
--- NOTE | 2024-09-13 10:23 | WC ---
PHOTO 09/11/24 LEFT LEG
[2024-09-18 12:22] VITALS: BP 199/92; PULSE 78; RESP 16; TEMP 35.9; BMI 51.5
--- NOTE | 2024-09-18 12:29 | PCM.WC.PN ---
History of Present Illness Date of Service: 09/18/24 Chief Complaint: Left anterior leg ulcer History of Wound: 58-year-old female with left leg wound secondary to trauma. Patient is diabetic controlled however she has elevated blood sugar secondary to bilateral ear infections. Subjective Subjective Ms. Lang is a 58-year-old diabetic female presented wound care center today for follow-up evaluation to full-thickness wound secondary to a fall of the left lower extremity. Patient has been doing dressing changes with her home health care/aide as instructed. She does admit to a couple falls during the week and relates it to her medication. She is working with her primary doctor to solve the following issue with removing the patient from certain medications. Her blood sugar has been well-controlled. Admits to falls, denies constitutional symptoms. No other pedal complaints at this time. Objective Data Objective Data Vital Signs: Vital Signs Temp Pulse Resp BP O2 Del Method O2 Flow Rate 96.7 F L 78 16 199/92 H Nasal Cannula 2 09/18/24 12:22 09/18/24 12:22 09/18/24 12:22 09/18/24 12:22 09/11/24 12:21 08/20/24 00:35 Oxygen Flow Rate (L/min) 2 Oxygen Delivery Method Nasal Cannula Weight: 140.614 kg Body Mass Index (BMI) 51.5 Physical Exam Narrative Vascular: DP and PT pulse are palpable. CFT is brisk to all digits of the left lower extremity. Nonpitting edema appreciated left lower extremity. Skin temperature great is warm to warm from proximal ankle to distal digit bilateral. No focal increase appreciated. Evidence of hemosiderin deposits bilateral. Neurological: Light touch intact. Protective station is absent. Dermatological: Full-thickness ulceration to the left lower extremity proximal measuring 0.3 x 0.4 x 0.1 cm. Wound base is granular nature. No sign of infection. Excisional debridement down to including subcutaneous tissue with a number 3 mm dermal curette to the left lower extremity proximal ulceration without incident. Predebridement measurement was sanguinous crust postdebridement measurement is 0.3 x 0.4 x 0.1 cm. Musculoskeletal: No pain to palpation to left lower extremity. No pain with calf pressure. Debridement Note Debridement Note Debridement Free Text: Excisional debridement down to including subcutaneous tissue with a number 3 mm dermal curette to the left lower extremity proximal ulceration without incident. Predebridement measurement was sanguinous crust postdebridement measurement is 0.3 x 0.4 x 0.1 cm. Post-Debridement Measurements and Additional Note: Post-Debridement Measurements/Treatment WC - Nurse 1 - General Ulcer Assessment Start: 08/28/24 15:16 Freq: Status: Active Protocol: NILO.STEVEN Activity Type Activity Date Activity User E-sign Co-sign Detail Recorded Client Recorded Date Recorded By Document 08/28/24 15:16 KW [id number] 08/28/24 15:26 KW Document 09/11/24 12:21 CP [id number] 09/11/24 12:25 CP Document 09/18/24 12:22 CP [id number] 09/18/24 12:24 CP 08/28/24 09/11/24 09/18/24 15:16 12:21 12:22 - Today's Visit Information Type of service Follow-up Visit Follow-up Visit Follow-up Visit (Physician/SMOKING TOBACCO PACKER HAND (Physician/SMOKING TOBACCO PACKER HAND (Physician/SMOKING TOBACCO PACKER HAND ) ) ) Arrival Mode Ambulatory Ambulatory, Ambulatory Walker Transfer Assistance None Patient Identification Verified (Name & Yes Yes Yes ) Patient Requires Transmission-Based No No Precautions Safety Precautions Fall Prevention Finger Stick Blood Sugar(mg/dl) (if 222 indicated): Blood Sugar Stated by Patient Height and Weight Body Mass Index (BMI) 51.5 51.5 51.5 BMI Classification Obese Obese Obese Vital Signs Temperature (97.8 F-99.1 F) 96.7 F L 97.6 F L 96.7 F L Temperature Source Temporal Temporal Temporal Pulse Rate (60-100) 79 83 78 Pulse Location Monitor Monitor Monitor Respiratory Rate (12-18) 18 18 16 Respiratory rate source Observation Observation Observation Oxygen Delivery Method Room Air Nasal Cannula Blood Pressure (90/60-120/80) 167/85 H 146/72 H 199/92 H Blood Pressure Mean (mm Hg) 112 96 127 Source Monitor Monitor Monitor Position Semi-Fowlers Semi-Fowlers Sitting Blood Pressure Location Left Arm Right Arm Left Arm History Since Last Visit- (Skip if this is Patient's initial visit) Have you changed medications since your No No No last visit? Any new allergies or adverse reactions No No No Had a fall/change in ADL's that may No Yes Yes increase risk of falls Signs or symptoms of abuse and/or No No No neglect since last visit Have you been in the hospital since your No No No last visit? Has dressing in place as prescribed Yes No Yes Has compression in place as prescribed Yes Yes Yes Has offloadiing in place as prescribed N/A N/A N/A Experienced any changes in pain level or No No management Left Footwear Regular Shoe Right Footwear Regular Shoe Pain Scale: 0-10 Numeric Is Patient Pain Free? Yes Yes Yes WC - Nurse 1 - General Ulcer Measurement Start: 08/28/24 15:16 Freq: Status: Active Protocol: Activity Type Activity Date Activity User E-sign Co-sign Detail Recorded Client Recorded Date Recorded By Document 08/28/24 15:16 KW [id number] 08/28/24 15:26 KW Document 09/11/24 12:21 CP [id number] 09/11/24 12:25 CP Edit Result 09/11/24 12:21 CP (1) [id number] 09/11/24 12:27 CP Document 09/18/24 12:22 CP [id number] 09/18/24 12:24 CP (1) Left Calf (cm) => 47 Left Ankle (cm) => 24 08/28/24 09/11/24 09/18/24 15:16 12:21 12:22 Wound Center Nurse 1 #16 DISTAL LT TORRES -Current Size (cm) - Length 1 -Current Size (cm) - Width 0.7 -Current Size (cm) - Depth 0.1 -Total Square Cm 0.7 -Exudate Amt Medium -Exudate Type Serosanguineous -Wound Margin Distinct, Outline Attached -Granulation Amt Large (67-100%) -Granulation Quality Red -Texture (Verónica-wound Skin Appearance) Assessed -Moisture (Verónica-wound Skin Appearance) Assessed -Color (Verónica-wound Skin Appearance) Assessed -Temperature (Verónica-wound Skin No Abnormality Appearance) (Pt Warm) -Tenderness on Palpation (Verónica-wound No Skin Appearance) -Ulcer Cleansing Rinsed/ Irrigated with Saline -Anesthetic Used 5% Lidocaine Gel 17-LEFT SUPERIOR LEG -Current Size (cm) - Length 0.1 0.2 0.1 -Current Size (cm) - Width 0.1 0.3 0.1 -Current Size (cm) - Depth 0.1 0.1 0.1 -Total Square Cm 0.01 0.06 0.01 -Photo Taken Yes -Epithelialization Medium 34-66% -Undermining/Tunneling No -Exudate Amt None Present Small Small -Exudate Type Serosanguineous -Wound Margin Flat & Intact -Slough/Fibrin Yes Yes -Necrosis Amt Small (1-33%) Large (67-100%) -Necrotic Tissue Type Adherent Slough -Structure Exposed N/A -Texture (Verónica-wound Skin Appearance) Assessed No Abnormality No Abnormality -Moisture (Verónica-wound Skin Appearance) Assessed No Abnormality No Abnormality -Color (Verónica-wound Skin Appearance) Assessed No Abnormality No Abnormality -Temperature (Verónica-wound Skin No Abnormality No Abnormality No Abnormality Appearance) (Pt Warm) (Pt Warm) (Pt Warm) -Tenderness on Palpation (Verónica-wound No No No Skin Appearance) -Ulcer Cleansing Rinsed/ Rinsed/ Rinsed/ Irrigated with Irrigated with Irrigated with Saline Saline Saline -Foul Odor after Cleansing No No -Anesthetic Used 5% Lidocaine 5% Lidocaine Gel Gel Left Calf (cm) 47 50.5 Left Ankle (cm) 24 23.5 WC - Nurse 2 - General Ulcer CM Notes Start: 08/28/24 15:16 Freq: Status: Active Protocol: Activity Type Activity Date Activity User E-sign Co-sign Detail Recorded Client Recorded Date Recorded By Document 08/28/24 15:31 JF [id number] 08/28/24 15:32 Document 09/11/24 12:32 JF [id number] 09/11/24 12:33 08/28/24 09/11/24 15:31 12:32 Wound Center Nurse 2 #16 DISTAL LT TORRES -Correct Patient No -Correct Side, Site, Position No -Correct Procedure No -Procedure Performed No -Post Debridement (cm) - Length 0 -Post Debridement (cm) - Width 0 -Post Debridement (cm) - Depth 0 -Total Square (Post) (cm) 0 -Area of Debridement (cm) - Length 0 -Area of Debridement (cm) - Width 0 -Total Square (Area) (cm) 0 -Wound/Ulcer Outcome Healed- Epithelialized 17-LEFT SUPERIOR LEG -Time 15:32 12:32 -Correct Patient Yes Yes -Correct Side, Site, Position Yes Yes -Correct Procedure Yes Yes -Procedure Performed Yes Yes -Type of Procedure Debridement Debridement -Clinical Debridement Subcutaneous Subcutaneous -Tissue Removed Subcutaneous -Post Debridement (cm) - Length 0.9 0.7 -Post Debridement (cm) - Width 0.9 0.6 -Post Debridement (cm) - Depth 0.1 0.1 -Total Square (Post) (cm) 0.81 0.42 -Area of Debridement (cm) - Length 0.9 0.7 -Area of Debridement (cm) - Width 0.9 0.6 -Total Square (Area) (cm) 0.81 0.42 -Tunneling No No -Undermining/Tunneling No No -Circular Undermining No No -Wound/Ulcer Outcome Not Healed Not Healed -Ulcer Cleansing Rinsed/ Rinsed/ Irrigated with Irrigated with Saline Saline -Foul Odor after Cleansing No No -Bioengineered Tissue No No -Bleeding Controlled with Pressure Pressure -Treatment Response Procedure Procedure Tolerated Well Tolerated Well -Offloading No No -Debridement - Subq, 1st 20sq cm Yes Yes Pain Scale: 0-10 Numeric Is Patient Pain Free? Yes Yes WC - Nurse 3 - General Ulcer D/C NN Start: 08/28/24 15:16 Freq: Status: Active Protocol: Activity Type Activity Date Activity User E-sign Co-sign Detail Recorded Client Recorded Date Recorded By Document 08/28/24 15:46 BMF 0000 08/28/24 15:47 [facility] Document 09/11/24 12:42 CP [id number] 09/11/24 12:43 CP 08/28/24 09/11/24 15:46 12:42 Wound Care Center Nurse 3 17-LEFT SUPERIOR LEG -Ulcer Cleansing Rinsed/ Rinsed/ Irrigated with Irrigated with Saline Saline -Foul Odor after Cleansing No -Primary Dressing Applied Fibracol Plus Fibracol Plus 4x4,Mepilex 4x4,Mepilex Border Border -Other Dressing MOISTENED -Fibracol Plus 4x4 1 1 -Mepilex Border 1 1 Left -Compression Wrap Silvestre Wrap joseph -Compression Wrap Silvestre Wrap -Other refused 3m to [facility]. dr gonzales updated Treatment Response Procedure Procedure Tolerated Well Tolerated Well Pain Scale: 0-10 Numeric Is Patient Pain Free? Yes Yes WC - Visit Discharge Discharge Condition Stable Stable Ambulatory Status Ambulatory, Ambulatory, Walker Walker Transportation Private Auto Private Auto Clinical Summary of Care Provided Yes Assessment/Plan Assessment/Plan (1) Non-pressure chronic ulcer of other part of left lower leg with fat layer exposed: CODE(S): L97.822 - Non-pressure chronic ulcer of other part of left lower leg with fat layer exposed PLAN: Patient was examined and evaluated. All findings were discussed with the patient. All questions were answered to the patient's satisfaction. Excisional debridement down to including subcutaneous tissue with a number 3 mm dermal curette to the left lower extremity proximal ulceration without incident. Predebridement measurement was sanguinous crust postdebridement measurement is 0.3 x 0.4 x 0.1 cm. Left lower extremities were cleaned and patted dry. Fibracol followed by dry sterile dressing and Silvestre wrap was applied to the left lower extremity. Patient's home health care will change her dressing every other day. Educated the patient to continue strict blood sugar control. Follow-up at the wound care center with Dr. Gonzales in 2 week. (2) Other specified peripheral vascular diseases: CODE(S): I73.89 - Other specified peripheral vascular diseases
--- NOTE | 2024-09-19 09:54 | WC ---
PHOTO 09/18/24 LEFT LEG
--- NOTE | 2024-09-23 11:32 | WC ---
PHOTO 09/18/24 LEFT LEG
== END 2024-09-19 23:59 | disposition home or self-care (01) ==
LOC: WC 12:15
PROVIDERS: PCP Internal Medicine; Referring Provider Internal Medicine; Visit Provider Podiatrist Foot & Ankle Surgery
DX: E11.622 Type 2 diabetes mellitus with other skin ulcer (principal); L97.822 Non-pressure chronic ulcer of other part of left lower leg with fat layer exposed; I73.89 Other specified peripheral vascular diseases
CPT/HCPCS: 11042

== ENCOUNTER 2024-09-29 01:53 | Emergency (ER) | payer MEDICAID, SELFPAY ==
[2024-09-29 01:57] VITALS: BP 103/73; PULSE 62; RESP 16; TEMP 36.4; O2SAT 100; BMI 50.9
[2024-09-29 02:22] VITALS: BP 102/73; BP 103/71; BP 106/76; PULSE 59; PULSE 60; PULSE 67
[2024-09-29 02:34] VITALS: BP 102/73; PULSE 67; RESP 16; TEMP 36.6; O2SAT 98
== END 2024-09-29 02:42 | disposition home or self-care (01) ==
LOC: ED 02:39
PROVIDERS: Emergency Provider Emergency Medicine; PCP Internal Medicine; Visit Provider Emergency Medicine
DX: R55 Syncope and collapse (principal); J44.9 Chronic obstructive pulmonary disease, unspecified; E11.9 Type 2 diabetes mellitus without complications; Z79.4 Long term (current) use of insulin; Z90.710 Acquired absence of both cervix and uterus; I10 Essential (primary) hypertension; R53.1 Weakness; F32.A Depression, unspecified; Z79.899 Other long term (current) drug therapy; Z79.84 Long term (current) use of oral hypoglycemic drugs; Z79.51 Long term (current) use of inhaled steroids; K21.9 Gastro-esophageal reflux disease without esophagitis
CPT/HCPCS: 93005; 99284

== ENCOUNTER 2024-10-03 12:19 | Observation (INO) | payer MEDICAID, SELFPAY ==
[2024-10-03] VITALS (9 sets, daily range): BP systolic 151–189; BP diastolic 75–100; PULSE 68–80; RESP 16–22; TEMP 36.5–36.6; O2SAT 95–100; BMI 49.7; BMI 48.9
[2024-10-03 12:46] LABS: Absolute Lymphocyte Count 0.69 X10^3/uL (0.83-4.51); Absolute Neutrophil Count 3.4 X10^3/uL (2.0-7.7); Hemoglobin 9.4 g/dL (12.0-15.0); Lymphocyte # 0.69 X10^3/ul (0.83-4.51); Lymphocyte % 15.5 % (19-41); Mean Corp Hgb Conc 30.3 g/dL (32-36); Mean Corpuscular Hgb 24.9 pg (27.0-32.0); Mean Corpuscular Volume 82.2 fL (81-99); Mean Platelet Vol. 9.5 fl (6.2-12.0); Monocyte# 0.34 X10^3/uL; Monocyte% 7.7 % (0-10); NRBC Flagged by Analyzer 0 % (0-5); Neutrophil # 3.38 X10^3/uL (2.7-7.7); Neutrophil % 76.1 % (47-70); Platelet Count 148 K/mm3 (150-450); RBC Distribution Width CV 16.4 % (11.6-14.6); RBC Distribution Width SD 49.6 fl (35.1-43.9); Red Blood Count 3.77 M/mm3 (4.2-5.4); White Blood Count 4.4 K/mm3 (4.4-11.0)
[2024-10-03 12:50] LABS: Partial Thromboplast Time 27.1 Seconds (24.1-36.2); Prothrombin Time (Protime)PT. 13.4 SECONDS (11.7-14.9)
[2024-10-03 12:58] LABS: Anion Gap 5 (5-15); BUN 12 mg/dL (7-18); BUN/Creat Ratio 17.5 RATIO (10-20); Calcium,Total 8.8 mg/dL (8.5-10.1); Chloride 103 mmol/L (98-107); Creatinine, Serum 0.69 mg/dL (0.55-1.02); EST Glomerular Filtration Rate 92 mL/min (>60); Est Glom Filt Rate - Afr Amer 112 mL/min (>60); Estimated Creatinine Clearance 121.07 ml/min; Glucose 239 mg/dL (74-106); Potassium 4.3 mmol/L (3.5-5.1); Sodium Level 137 mmol/L (136-145)
[2024-10-03 14:17] LABS: Mucous, Urine 0 SEEN /hpf (<or=2+); Red Blood Cells-Urine 0 SEEN /hpf (0-5)
[2024-10-03 14:22] LABS: Color, Urine Yellow (Yellow); Glucose, Dipstick 100 mg/dl (Normal); Ketone-Dipstick Negative (Negative); Leukocyte Esterase-Dipstick 25 /ul (Negative); Nitrite-Dipstick Positive (Negative); Occult Blood-Urine Negative /ul (Negative); Protein-Dipstick Negative (Negative); Specific Gravity, Urine 1.015 (1.002-1.030); Urine Bilirubin Dipstick Negative (Negative); Urine Clarity Clear (Clear); Urine Urobilinogen Normal (Normal)
[2024-10-03 14:27] LABS: Bacteria 3+ /hpf (None Seen); Squamous Epithelial Cells - UA 0-5 SEEN /hpf (5-10); White Blood Cells 5-10 SEEN /hpf (0-5)
[2024-10-03] MEDS: HYDROcodone Bitartrate/Apap 5/325 Tablet PO ×2 (15:35→21:35)
[2024-10-03] MEDS: levoFLOXacin IV 750 MG in Empty Viaflex Q24 100 MG IV (15:57)
[2024-10-03] MEDS: Albuterol 2.5 MG/3 ML VIAL.NEB. INHALATION (20:27)
[2024-10-03] MEDS: Budesonide Respules 0.5 MG/2 ML AMPUL.NEB. INHALATION (20:28)
[2024-10-03] MEDS: Insulin Lispro 100 UNIT/ML INSULN.PEN SC (21:33)
[2024-10-03] MEDS: Insulin Glargine-YFGN 100 UNIT/ML Pen 35 UNIT SC (21:33)
[2024-10-03] MEDS: Enoxaparin 40 MG/0.4 ML Syringe SC (21:34)
[2024-10-03] MEDS: LORazepam 1 MG Tablet PO (21:35)
[2024-10-03] MEDS: Pregabalin 75 MG Capsule 150 MG PO (21:35)
[2024-10-03] MEDS: Primidone 250 MG Tablet PO (21:35)
[2024-10-03] MEDS: traZODone 100 MG Tablet 150 MG PO (21:36)
[2024-10-03] MEDS: Lisinopril 10 MG Tablet PO (21:37)
[2024-10-03] MEDS: busPIRone 5 MG Tablet 20 MG PO (21:37)
[2024-10-03] MEDS: Nadolol 40 MG Tablet 80 MG PO (21:37)
[2024-10-04 03:30] VITALS: BP 155/67; PULSE 67; RESP 18; TEMP 37; O2SAT 99
[2024-10-04] MEDS: HYDROcodone Bitartrate/Apap 5/325 Tablet PO (03:35)
[2024-10-04 06:09] LABS: Hematocrit 29.9 % (37-47); Hemoglobin 9.4 g/dL (12.0-15.0); Mean Corp Hgb Conc 31.4 g/dL (32-36); Mean Corpuscular Hgb 25.5 pg (27.0-32.0); Mean Platelet Vol. 9.6 fl (6.2-12.0); Platelet Count 144 K/mm3 (150-450); RBC Distribution Width CV 16.4 % (11.6-14.6); RBC Distribution Width SD 47.8 fl (35.1-43.9); Red Blood Count 3.69 M/mm3 (4.2-5.4); White Blood Count 5.4 K/mm3 (4.4-11.0)
[2024-10-04 06:30] LABS: Anion Gap 6 (5-15); BUN 11 mg/dL (7-18); BUN/Creat Ratio 18.7 RATIO (10-20); Calcium,Total 8.6 mg/dL (8.5-10.1); Chloride 102 mmol/L (98-107); Creatinine, Serum 0.59 mg/dL (0.55-1.02); EST Glomerular Filtration Rate 111 mL/min (>60); Est Glom Filt Rate - Afr Amer 134 mL/min (>60); Estimated Creatinine Clearance 140.13 ml/min; Glucose 217 mg/dL (74-106); Potassium 4.1 mmol/L (3.5-5.1); Sodium Level 135 mmol/L (136-145)
[2024-10-04] MEDS: Pregabalin 75 MG Capsule 150 MG PO (06:31)
[2024-10-04] MEDS: busPIRone 5 MG Tablet 20 MG PO (06:32)
[2024-10-04] MEDS: Insulin Lispro 100 UNIT/ML INSULN.PEN SC (06:32)
[2024-10-04 06:55] LABS: Bedside Glucose 207 mg/dL (74-106)
[2024-10-04 07:48] VITALS: O2SAT 95
[2024-10-04 08:17] LABS: Hemoglobin A1c 9.1 % (3.8-5.6)
[2024-10-04 08:48] VITALS: BP 172/86; PULSE 65; RESP 16; TEMP 36.7; O2SAT 100
[2024-10-04] MEDS: Aspirin 81 MG TAB.CHEW PO (09:15)
[2024-10-04] MEDS: Tolterodine Tartrate 4 MG CAP.SA PO (09:16)
[2024-10-04] MEDS: Lactobacillis Acidophilus 1 CAP PO (09:16)
[2024-10-04] MEDS: Loratadine 10 MG Tablet PO (09:16)
[2024-10-04] MEDS: Fluticasone 0.05% 1 SPRAY NASAL.SRY 2 SPRAY NASAL (09:16)
[2024-10-04] MEDS: Colchicine 0.6 MG TABLET PO (09:16)
[2024-10-04] MEDS: Nadolol 40 MG Tablet 80 MG PO (09:16)
[2024-10-04] MEDS: Enoxaparin 40 MG/0.4 ML Syringe SC (09:17)
[2024-10-04] MEDS: Acyclovir 200 MG Capsule 400 MG PO (09:18)
[2024-10-04] MEDS: buPROPion (XL) 150 MG TABLET.XL 450 MG PO (09:18)
[2024-10-04] MEDS: Pantoprazole Sodium 40 MG Tablet PO (09:18)
[2024-10-04] MEDS: Primidone 250 MG Tablet PO (09:18)
[2024-10-04] MEDS: Lisinopril 10 MG Tablet PO (09:18)
[2024-10-04] MEDS: Escitalopram Oxalate 20 MG Tablet PO (09:19)
[2024-10-04 19:59] LABS: Bedside Glucose 217 mg/dL (74-106)
== END 2024-10-04 10:15 | disposition left against medical advice (07) ==
LOC: ED 15:21 → MS3 18:30
PROVIDERS: Admitting Provider Hospitalist; Emergency Provider Emergency Medicine; PCP Internal Medicine; Visit Provider Internal Medicine
DX: N30.00 Acute cystitis without hematuria (principal); F25.9 Schizoaffective disorder, unspecified; J96.10 Chronic respiratory failure, unspecified whether with hypoxia or hypercapnia; F31.9 Bipolar disorder, unspecified; J44.89 Other specified chronic obstructive pulmonary disease; Z68.42 Body mass index [BMI] 45.0-49.9, adult; E11.65 Type 2 diabetes mellitus with hyperglycemia; Z79.4 Long term (current) use of insulin; E11.51 Type 2 diabetes mellitus with diabetic peripheral angiopathy without gangrene; E66.813 Obesity, class 3; Z79.51 Long term (current) use of inhaled steroids; F43.10 Post-traumatic stress disorder, unspecified; E87.1 Hypo-osmolality and hyponatremia; G89.29 Other chronic pain; I10 Essential (primary) hypertension; R53.81 Other malaise; K21.9 Gastro-esophageal reflux disease without esophagitis; G93.41 Metabolic encephalopathy; Z99.81 Dependence on supplemental oxygen; Z79.899 Other long term (current) drug therapy; Z79.82 Long term (current) use of aspirin; Z79.84 Long term (current) use of oral hypoglycemic drugs; D63.8 Anemia in other chronic diseases classified elsewhere
CPT/HCPCS: 36415; 71046; 80048; 81001; 82962; 83036; 85025; 85027; 85610; 85730; 87077; 87086; 87088; 87186; 94640; 94668; 96365; 96366; 96372; 99221; 99285; J7040; G0378

== ENCOUNTER 2024-10-09 12:15 | Outpatient (RCR) | payer MEDICAID, SELFPAY ==
[2024-09-20 00:42] VITALS: BP 167/87; PULSE 74; RESP 20; TEMP 36.5; BMI 51.5
[2024-10-09 12:19] VITALS: BP 138/82; PULSE 85; RESP 18; TEMP 35.5; BMI 51.5
--- NOTE | 2024-10-09 13:47 | PN.PCM_ITS ---
History of Present Illness Date of Service: 10/09/24 Chief Complaint: Left anterior leg ulcer History of Wound: 58-year-old female with left leg wound secondary to trauma. Patient is diabetic controlled however she has elevated blood sugar secondary to bilateral ear infections. Progress of Wound: Patient is following up for left leg ulceration secondary to trauma. Subjective Subjective Ms. Lang is a 58-year-old diabetic female presented wound care center follow-up evaluation to left lower extremity full-thickness wound secondary to trauma. Patient stated wound is healed. She admits no new ulcerations or trauma. Denies constitutional symptoms. No other pedal complaints at this time. Objective Data Objective Data Vital Signs: Vital Signs Temp Pulse Resp BP O2 Del Method O2 Flow Rate 95.9 F L 85 18 138/82 H Nasal Cannula 3 10/09/24 12:19 10/09/24 12:19 10/09/24 12:19 10/09/24 12:19 10/09/24 12:19 10/09/24 12:19 Oxygen Flow Rate (L/min) 3 Oxygen Delivery Method Nasal Cannula Weight: 140.614 kg Body Mass Index (BMI) 51.5 Physical Exam Narrative Vascular: DP and PT pulse are palpable. CFT is brisk to all digits of the left lower extremity. Nonpitting edema appreciated left lower extremity. Skin temperature great is warm to warm from proximal ankle to distal digit bilateral. No focal increase appreciated. Evidence of hemosiderin deposits bilateral. Neurological: Light touch intact. Protective station is absent. Dermatological: Full-thickness ulceration to the left leg is now healed. No concern for infection.. Musculoskeletal: No pain to palpation to left lower extremity. No pain with calf pressure. Debridement Note Debridement Note Post-Debridement Measurements and Additional Note: Post-Debridement Measurements/Treatment - Nurse 1 - General Ulcer Assessment Start: 10/09/24 12:17 Freq: Status: Active Protocol: .LOWEXT Activity Type Activity Date Activity User E-sign Co-sign Detail Recorded Client Recorded Date Recorded By Document 10/09/24 12:19 [facility] [id number] 10/09/24 12:24 [facility] 10/09/24 12:19 - Today's Visit Information Type of service Follow-up Visit (Physician/SOIL FERTILITY EXTENSION SPECIALIST ) Arrival Mode Ambulatory Transfer Assistance None Patient Identification Verified (Name & Yes ) Patient Requires Transmission-Based No Precautions Height and Weight Body Mass Index (BMI) 51.5 BMI Classification Obese Vital Signs Temperature (97.8 F-99.1 F) 95.9 F L Temperature Source Temporal Pulse Rate (60-100) 85 Pulse Location Monitor Respiratory Rate (12-18) 18 Respiratory rate source Observation Oxygen Delivery Method Nasal Cannula O2 L/MIN (L/min) 3 Blood Pressure (90/60-120/80) 138/82 H Blood Pressure Mean (mm Hg) 100 Source Monitor Position Sitting Blood Pressure Location Left Forearm History Since Last Visit- (Skip if this is Patient's initial visit) Have you changed medications since your No last visit? Any new allergies or adverse reactions No Had a fall/change in ADL's that may No increase risk of falls Signs or symptoms of abuse and/or No neglect since last visit Have you been in the hospital since your Yes last visit? Left Footwear Regular Shoe Right Footwear Regular Shoe Pain Scale: 0-10 Numeric Is Patient Pain Free? Yes WC - Nurse 1 - General Ulcer Measurement Start: 10/09/24 12:17 Freq: Status: Active Protocol: Activity Type Activity Date Activity User E-sign Co-sign Detail Recorded Client Recorded Date Recorded By Document 10/09/24 12:19 [facility] [id number] 10/09/24 12:24 [facility] 10/09/24 12:19 Wound Center Nurse 1 17-LEFT SUPERIOR LEG -Combined with other wound No -Current Size (cm) - Length 0.1 -Current Size (cm) - Width 0.1 -Current Size (cm) - Depth 0.1 -Total Square Cm 0.01 -Date of Last Picture (Recall this 10/09/24 field) -Photo Taken Yes -Epithelialization Large 67-100% -Tunneling No -Undermining/Tunneling No -Circular Undermining No -Exudate Amt None Present -Texture (Verónica-wound Skin Appearance) Assessed -Moisture (Verónica-wound Skin Appearance) Assessed -Color (Verónica-wound Skin Appearance) Assessed -Temperature (Verónica-wound Skin No Abnormality Appearance) (Pt Warm) Lower Limb Edema Present Yes Left Calf (cm) 51.2 Left Ankle (cm) 23 WC - Nurse 2 - General Ulcer CM Notes Start: 10/09/24 12:17 Freq: Status: Active Protocol: Activity Type Activity Date Activity User E-sign Co-sign Detail Recorded Client Recorded Date Recorded By Document 10/09/24 12:38 [id number] 10/09/24 12:39 10/09/24 12:38 Wound Center Nurse 2 17-LEFT SUPERIOR LEG -Correct Patient No -Correct Side, Site, Position No -Correct Procedure No -Procedure Performed No -Post Debridement (cm) - Length 0 -Post Debridement (cm) - Width 0 -Post Debridement (cm) - Depth 0 -Total Square (Post) (cm) 0 -Area of Debridement (cm) - Length 0 -Area of Debridement (cm) - Width 0 -Total Square (Area) (cm) 0 -Wound/Ulcer Outcome Healed- Epithelialized Pain Scale: 0-10 Numeric Is Patient Pain Free? Yes - Nurse 3 - General Ulcer D/C NN Start: 10/09/24 12:17 Freq: Status: Active Protocol: Activity Type Activity Date Activity User E-sign Co-sign Detail Recorded Client Recorded Date Recorded By Document 10/09/24 12:43 [id number] 10/09/24 12:43 10/09/24 12:43 Wound Care Center Nurse 3 Left -Compression Wrap Silvestre Wrap Pain Scale: 0-10 Numeric Is Patient Pain Free? 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 All findings were discussed with the patient. All questions were answered to the patient's satisfaction. Patients left lower extremity wound is now healed. Educated patient continue to apply lotion on her legs and wear her compression wraps which she is understanding of. Patient is grateful for care. She will continue strict blood sugar control as discussed. Patient will follow-up in private office for continued palliative diabetic footcare. She left the wound care center pleased with her visit and will be discharged and will follow-up as needed
--- NOTE | 2024-10-10 08:49 | WC ---
PHOTO 10/09/24 LEFT TORRES (H)
== END 2024-10-09 14:50 | disposition home or self-care (01) ==
LOC: WC 12:15
PROVIDERS: PCP Internal Medicine; Referring Provider Internal Medicine; Visit Provider Podiatrist Foot & Ankle Surgery
DX: E11.622 Type 2 diabetes mellitus with other skin ulcer (principal); L97.822 Non-pressure chronic ulcer of other part of left lower leg with fat layer exposed; H66.93 Otitis media, unspecified, bilateral
CPT/HCPCS: 99213; G0463

== ENCOUNTER 2024-10-28 12:36 | Inpatient (IN) | payer MEDICAID, SELFPAY ==
[2024-10-28] VITALS (10 sets, daily range): BP systolic 120–175; BP diastolic 73–114; PULSE 109–135; RESP 17–29; TEMP 36.5–36.9; O2SAT 89–96; BMI 50.6; BMI 48.3
--- NOTE | 2024-10-28 12:50 | ED.RN ---
This Rn has been into patients room several times and call light has been used several times since arrival. Pt. is insistent that she get onto bedside commode to have a BM despite her having a syncopal episode upon arrival and despite her not being able to even lift herself up in bed. pt. has been reminded several times that getting her up at this time is not safe for her and it is not safe for staff members either. pt. continued to press call light and ask questions that have been answered several times.
--- NOTE | 2024-10-28 13:14 | CT_ITS ---
STUDY: CT ABDOMEN AND PELVIS WITH CONTRAST REASON FOR EXAM: Female, 59 years old. Abdominal pain. History of constipation. RADIATION DOSAGE (If Supplied By Facility): CTDIvol = ( 17.07 ) mGy, DLP = ( 1551.55 ) mGycm TECHNIQUE: Transaxial images were obtained from the dome of the diaphragm to the symphysis pubis without oral contrast. IV 100mL Isovue-370 was administered. Sagittal and coronal images were reconstructed. Individualized dose optimization techniques were used for this CT. COMPARISON: Comparison is made with prior study dated April 04, 2021. FINDINGS: The visualized lung bases are unremarkable. The visualized portions of the heart are within normal limits. Normal liver. Normal gallbladder and extrahepatic biliary system. Normal spleen. There is diffuse atrophy of the pancreas. Normal bilateral adrenal glands. Nonobstructive left intrarenal calculus. Normal left kidney. Fluid-filled stomach and lower esophagus.. Fluid-filled nondilated small bowel loops. Gaseous distention of the colon with fecal material down to the level of the rectum. Fluid is seen within the cecum. The appendix is visualized and appears normal. Normal abdominal aorta. Normal inferior vena cava. Normal retroperitoneum. Normal urinary bladder. Normal abdominal wall. There are degenerative changes of the visualized lumbar spine. CT/Abdomen/Pelvis W IV Cont ONLY IMPRESSION: Gaseous distention of the stomach with fluid and fecal material. Fluid filled small bowel loops although no evidence of bowel obstruction. Nonobstructive right intrarenal calculi. Bilateral parapelvic cysts. Electronically Signed: Kevin Gaxiola MD at 15:07 EST ,
--- NOTE | 2024-10-28 13:20 | EDS_ITS ---
HPI HPI - GI History of Present Illness Chief Complaint: Constipation Informant: patient Narrative Narrative: Reports constipation for the past 2 days. Increasing lower abdominal pain yesterday. No fevers or chills. No urinary symptoms. No abdominal surgery history. Denies any change in her diet. Denies any chronic pain medications. Nausea without vomiting. 2 days of abnormal bowel movement. Exam abdomen felt firm distended, she states it was not like this 2 days ago. Chronic oxygenation due to COPD history. No chronic anticoagulants. Provide nursing on arrival she had a brief LOC therefore EKG was performed. Denies chest pains denies cough. Patient reports she has passing out episodes. After evaluation workup initiated. Records note she had hysterectomy and hernia repair in the past. Prior similar symptoms: Yes PFSH PFS Medical History (Updated 11/01/24 @ 18:[address] Vance Hicks, DO) Bipolar disorder Non-smoker CPAP (continuous positive airway pressure) dependence On home oxygen therapy Myocardial infarct Hypertension Seizures History of ESBL E. coli infection Schizophrenia Diabetes PTSD (post-traumatic stress disorder) Depression Schizo affective schizophrenia Other specified peripheral vascular diseases Essential hypertension Chest pain Diabetes mellitus type 2, uncontrolled, with complications Back pain Asthma Knee pain Migraines Fatigue Hemorrhoids COPD (chronic obstructive pulmonary disease) Arthritis Pain syndrome, chronic Bipolar disorder Obstructive sleep apnea Stasis dermatitis of both legs Venous insufficiency of both lower extremities Super obese Open wound of left lower extremity GERD (gastroesophageal reflux disease) Benign hypertension ADHD (attention deficit hyperactivity disorder) Home Medications ?Medication ?Instructions ?Recorded ?Last Taken ?Type bupropion HCl 300 mg 24 hr tablet, 450 mg PO DAILY mental health 03/05/17 10/03/24 History extended release albuterol sulfate 90 mcg/actuation 2 puff inhalation Q4H PRN Sob &/Or 05/29/18 07/07/18 History aerosol inhaler Wheezing glimepiride 2 mg tablet 4 mg PO BID diabetes 09/20/18 10/03/24 History dicyclomine 10 mg capsule 20 mg (2 x 10 mg) PO TIDAC #20 caps 07/28/19 10/03/24 Rx escitalopram oxalate 10 mg tablet 20 mg PO DAILY mental health 08/04/19 10/03/24 History fluticasone propionate 50 2 spray NASAL DAILY allergies 08/04/19 10/03/24 History mcg/actuation nasal spray,suspension tizanidine 4 mg capsule 4 mg PO BID PRN Muscle Spasm 07/15/20 Unknown History aspirin 81 mg chewable tablet 81 mg PO DAILY@0800 07/17/20 10/03/24 Rx nadolol 80 mg tablet 80 mg PO BID high blood pressure 07/08/21 10/03/24 History buspirone 10 mg tablet 20 mg PO TID mood 01/25/22 10/03/24 History cetirizine 10 mg tablet (Zyrtec) 10 mg PO DAILY allergies 01/25/22 10/03/24 History colchicine 0.6 mg tablet 0.6 mg PO DAILY . 01/25/22 10/03/24 History guaifenesin 600 mg tablet, 1,200 mg PO BID PRN Cough 01/25/22 Unknown History extended release 12 hr (Mucinex) hydroxyzine pamoate 25 mg capsule 25 - 75 mg PO BID PRN Itching 01/25/22 Unknown History (Vistaril) hyoscyamine sulfate 0.125 mg 0.125 mg PO Q6H PRN IBS 01/25/22 Unknown History tablet (Levsin) ketorolac 10 mg tablet 10 mg PO Q6H PRN SEVERE HEADACHE 01/25/22 Unknown History lidocaine 4 % topical cream 1 applic topical TID PRN Pain 01/25/22 Unknown History lorazepam 0.5 mg tablet (Ativan) 0.5 - 1 mg PO BID PRN Panic 01/25/22 Unknown History Attack(S) primidone 250 mg tablet 250 mg PO BID seizures 01/25/22 10/03/24 History triamcinolone acetonide 0.1 % 1 applic topical TID PRN Rash 01/25/22 Unknown History topical cream fluticasone 500 mcg-salmeterol 50 1 inh inhalation BID . 05/02/22 10/03/24 History mcg/dose blistr powdr for inhalation insulin glargine 100 unit/mL (3 43 unit subcut QHS 05/02/22 10/02/24 History mL) subcutaneous pen (Lantus Solostar U-100 Insulin) omeprazole 40 mg capsule,delayed 40 mg PO DAILY gerd 05/02/22 10/03/24 History release oxybutynin chloride 10 mg 20 mg PO DAILY bladder 05/02/22 10/03/24 History tablet,extended release 24 hr paliperidone palmitate 117 mg/0.75 117 mg IM Q21D 05/02/22 09/25/24 History mL intramuscular syringe (Invega Sustenna) ergocalciferol (vitamin D2) 1,250 50,000 unit PO MOTH 08/10/22 10/03/24 History mcg (50,000 unit) capsule (Vitamin D2) insulin lispro 100 unit/mL See Rx Instructions subcut QAC DM 08/10/22 10/03/24 History subcutaneous pen lactulose 10 gram/15 mL oral 30 ml PO BID PRN Constipation 08/10/22 Unknown History solution pregabalin 150 mg capsule 150 mg PO TID pain 08/10/22 10/03/24 History valacyclovir 500 mg tablet 500 mg PO DAILY 08/10/22 10/03/24 History promethazine 25 mg tablet 25 mg PO Q6H PRN nausea and 05/10/23 Unknown Rx vomiting 7 days #28 tabs hydrocodone-acetaminophen 5-325mg 1 tab PO Q6H PRN pain 08/28/23 Unknown History 5mg-325mg acidophilus 25 million 1 tab PO DAILY 10/03/24 10/03/24 History cell-pectin, citrus 100 mg tablet lisinopril 10 mg tablet 10 mg PO BID blood pressure 10/03/24 Unknown History naratriptan 2.5 mg tablet See Rx Instructions PO .COMPLEX 10/03/24 Unknown History headache ondansetron 4 mg disintegrating 8 mg PO Q8H PRN Nausea 10/03/24 Unknown History tablet trazodone 150 mg tablet 150 mg PO QHS sleep 10/03/24 10/02/24 History bisacodyl 5 mg tablet,delayed 5 mg PO QHS PRN constipation 5 10/30/24 Unknown Rx release (Gentle Laxative days #10 tabs (bisacodyl)) Allergy/AdvReac Type Severity Reaction Status Date / Time meloxicam Allergy Severe Anaphylaxis Verified 10/28/24 12:44 vancomycin Allergy Severe BURNING Verified 10/28/24 12:44 RED RASH ON LEGGS amlodipine (From Norvasc) Allergy Swelling Verified 10/28/24 12:44 cefazolin sodium (From Ancef) Allergy Hives Verified 10/28/24 12:44 fexofenadine (From Nia) Allergy Shortness Verified 10/03/24 12:19 of breath nitrofurantoin (From Allergy Hives Verified 10/28/24 12:44 Macrobid) peanut Allergy Shortness Verified 10/28/24 12:44 of breath Penicillins Allergy Hives Verified 10/28/24 12:44 sumatriptan (From Imitrex) Allergy Shortness Verified 10/28/24 12:44 of breath adhesive AdvReac BURNING Verified 10/28/24 12:44 amitriptyline (From Elavil) AdvReac Other Verified 10/28/24 12:44 clindamycin AdvReac Diarrhea Verified 10/28/24 12:44 ziprasidone (From Geodon) AdvReac NEEDS Verified 10/28/24 12:44 FOLLOW-UP Family History Father CVA (cerebral vascular accident) Heart disease Mother Heart disease Surgical History History of elbow surgery (~06/2020) History of arthroscopic knee surgery History of left heart catheterization (07/16/20) Kidney stone H/O hernia repair Hx of hysterectomy Hx of section Social History household members: spouse housing: house Smoking Status: Never smoker alcohol intake: current alcohol intake frequency: holidays/special occasions only Alcohol type: wine substance use type: does not use caffeine: Yes (occasionally) ROS ROS ED Constitutional Constitutional ED: Denies chills, fever(s) or sweats Eyes Eyes: Denies change in vision ENT ENT ED: Denies dysphagia or sore throat Cardiovascular Cardiovascular: Denies chest pain, leg edema, palpitations or racing heartbeat Respiratory/Chest Respiratory/Chest: Denies cough, dyspnea or dyspnea on exertion Gastrointestinal Gastrointestinal: Reports abdominal pain, constipation and nausea; Denies diarrhea or vomiting Genitourinary Genitourinary ED: Denies dysuria, hematuria or urinary frequency Musculoskeletal Musculoskeletal: Denies back pain, extremity pain or neck pain Integumentary Denies rash or wounds Neurologic Neurologic: Denies headache(s), paresthesias or weakness EXAM Physical Exam Const Vital Signs: 10/28/24 12:37 10/28/24 13:14 10/28/24 14:36 Temperature 98.2 F Temperature Source Oral Pulse Rate 111 H 135 H Respiratory Rate 18 27 H Blood Pressure 175/91 H 147/106 H Blood Pressure Mean 119 119 Pulse Ox 90 89 Oxygen Delivery Method Nasal Cannula Nasal Cannula Nasal Cannula Oxygen Flow Rate (L/min) 4 Positive well nourished and well developed Constitutional Narrative: 4 L nasal cannula General Appearance ED: well developed HEENT Reports moist mucous membranes normocephalic and atraumatic Eyes EOMs intact bilaterally and conjunctivae normal General Eye ED: Yes normal appearance of both eyes Neck no lymphadenopathy and supple General: Negative for tenderness Chest Wall Chest: Negative for tenderness Resp normal respiratory effort and normal air movement Effort and Inspection: symmetric chest movement; Negative for respiratory distress Cardio regular rhythm and no murmurs Rate: tachycardic Peripheral Pulses: pulses 2+ throughout GI GI Narrative: Abdomen distended feels firm throughout. There is no guarding or rebound. Palpation: Negative for guarding or rebound tenderness present Extremity normal to inspection General Extremety ED: Negative for edema or tenderness General Extremity: Negative for edema Neuro oriented x3 and no sensory deficits noted Sensorium / Orientation: awake and alert Skin no rashes or lesions noted and no wounds MDM MDM MDM Narrative Medical decision making narrative: Interventions / MDM: Differential diagnosis: Abdominal pain, constipation, abdominal distention, history of COPD on chronic oxygenation Diagnosis considered but do not suspect: N/A My EKG interpretation: Sinus rate of 108, no ST changes diffuse T wave inversions inferior anterior lateral leads. Similar to 4 days ago. Imaging independently reviewed and interpreted by myself: 1 view chest x-ray no acute process. CT abdomen pelvis IV contrast: Fluid-filled nondilated small bowel is fluid-filled stomach and lower esophagus. Gaseous distention of the colon with fecal material down to the level of the rectum with fluid seen in the cecum. Normal appendix. External documents reviewed: N/A Test considered but not ordered:N/A ED course: Patient on 4 L oxygen she had a single episode in the ED EKG chronic changes. Abdomen feels distended and firm. Blood pressure stable. IV established for pain medicines and nausea medicines. Will obtain abdominal labs and CT scan for further evaluation. 1 view chest x-ray also ordered. During evaluation patient states she just wanted to be on the commode to have a bowel movement however per nursing patient had syncopal episode while in bed. Discussed with her the concern therefore would not get her out of bed at this time. 1415: Multiple nurses requiring redirection the patient however, she kept trying to get out of bed to get on the commode. She does have underlying bipolar disorder, discussed with nursing concerns for abdominal distention. She reported to nursing that she faked her syncope to get attention. She was put in restraints for safety. She was given Ativan in order to send her to CT scan. 1520: CT scan per radiologist dilated: Fecal material down to the rectum. Nursing assistance, disimpaction performed there was gas being expelled during procedure. Not much stool was able to remove. Will perform soapsuds enema in the ED to help continue disimpaction. Her labs notes concerns for CONNOR creatinine 1.13 up from 0.59. This nearly doubled. She is given fluids. Her glucose 457 normal gap. Will give insulin 15 units. Fluids also being given. Patient's hyperglycemia, CONNOR, significant colon distention with attempt with soapsuds enemas this time, do not feel this can be fully resolved with ED management. I will discuss with hospitalist for admission plans. I spoke with Dr. Munson with abdominal distention requested NG tube be placed in the ED. This was ordered. Patient be admitted for further management. Re-evaluation: stable Disposition discussed with patient/family/significant other: Patient Case discussed with consulting clinician: N/A This note was generated with [employer] dictation software. It may contain incorrect words, spelling, and punctuation that were not noted in checking the note before signing. Lab Data Attestation: I reviewed the patient's lab results. Labs: Laboratory Results - last 24 hr 10/28/24 10/28/24 13:01 14:30 WBC 10.7 RBC 4.30 Hgb 11.0 L Hct 36.1 L MCV 84.0 MCH 25.6 L MCHC 30.5 L RDW Std Deviation 50.4 H RDW Coeff of Jocy 16.5 H Plt Count 252 MPV 10.1 Immature Gran % (Auto) 0.900 Neut % (Auto) 84.1 H Lymph % (Auto) 9.3 L [place] % (Auto) 5.6 Eos % (Auto) 0.0 Baso % (Auto) 0.1 Absolute Neuts (auto) 9.0 H Absolute Lymphs (auto) 1.00 Nucleated RBC % 0 Sodium 134 L Potassium 5.0 Chloride 101 Carbon Dioxide 23.0 Anion Gap 10 BUN 23 H Creatinine 1.13 H Estim Creat Clear Calc 73.79 Est GFR (MDRD) Af Amer 63 Est GFR (MDRD) Non-Af 52 L BUN/Creatinine Ratio 20.4 H Glucose 457 H* Calcium 9.7 Total Bilirubin 0.30 AST 28 ALT 28 Alkaline Phosphatase 71 Ammonia 53.0 H Total Protein 8.1 Albumin 3.5 Globulin 4.6 H Albumin/Globulin Ratio 0.8 L Lipase 14 Radiography Diagnostic Testing: Clinical Impression(s) from Imaging Studies Abdomen/Pelvis CT 10/28/24 13:14 IMPRESSION: Gaseous distention of the stomach with fluid and fecal material. Fluid filled small bowel loops although no evidence of bowel obstruction. Nonobstructive right intrarenal calculi. Bilateral parapelvic cysts. Electronically Signed: Kevin Gaxiola MD at 15:07 EST , Chest X-Ray 10/28/24 13:55 IMPRESSION: Elevation of the right hemidiaphragm. Increased linear markings at the lung bases suggestive of bibasilar atelectasis. Electronically Signed: Kevin Gaxiola MD at 14:17 EST , KUB X-Ray 10/28/24 15:44 IMPRESSION: NG tube noted with tip in the mid to distal gastric fundus Electronically Signed: Zack Swan MD at 18:48 EST , Discharge Plan Dx/Rx/DC Orders Clinical Impression: Abdominal pain, Obstipation, COPD (chronic obstructive pulmonary disease), Chronic hypoxic respiratory failure, on home oxygen therapy Disposition Disposition: Acute Care Hospital [facility] Discharge Date/Time: 10/28/24 18:17
--- NOTE | 2024-10-28 13:20 | ED.RN ---
Per Cony RN and LUIS MIGUEL Pressley, patient had a syncopal episode in bed. Patient heard yelling at Wendie to let her walk to the bedside commode. patient has been explained by Wendie and this RN the answer is no. patient states I just need to sit on the edge of the bed. Wendie and myself explained the risk of getting her up does not weigh the benefit. patient can remain on the bedpan and we can raise of HOB to more of a sitting position. patient states my pain is still 10/10. patient asks to sit up in bed. patient states she is unable to do so. patient then asked by Wendie, how do you think you can get out of bed if you can't help pull yourself up? Patient states I dont know. patient no further questions
[2024-10-28] MEDS: Ondansetron 4 MG/2 ML Vial IV ×2 (13:24→14:35)
[2024-10-28] MEDS: Morphine 4 MG/ML Syringe IV (13:25)
[2024-10-28 13:33] LABS: Basophil# 0.01 X10^3/uL; Basophil% 0.1 % (0-1); Hematocrit 36.1 % (37-47); Lymphocyte % 9.3 % (19-41); Mean Corp Hgb Conc 30.5 g/dL (32-36); Mean Corpuscular Hgb 25.6 pg (27.0-32.0); Mean Platelet Vol. 10.1 fl (6.2-12.0); Monocyte% 5.6 % (0-10); NRBC Flagged by Analyzer 0 % (0-5); Neutrophil % 84.1 % (47-70); Platelet Count 252 K/mm3 (150-450); RBC Distribution Width CV 16.5 % (11.6-14.6); RBC Distribution Width SD 50.4 fl (35.1-43.9); White Blood Count 10.7 K/mm3 (4.4-11.0)
--- NOTE | 2024-10-28 13:52 | ED.RN ---
pt. was found to be sitting at the foot of bed, all lines and montioring pulled taut. pt. was told several times it was not safe for her to get up and that staff members would not be assisting her for fear if injuring staff members as we cannot lift her and put her onto BSC as she would want. Terrie RN went into room and attempted to talk to patient and see if she could reason with patient and pt. admitted to faking passing out to get attention.
--- NOTE | 2024-10-28 13:55 | RAD_ITS ---
STUDY: X-RAY CHEST REASON FOR EXAM: Female, 59 years old. Syncope TECHNIQUE: Single AP portable view of the chest. COMPARISON: Comparison is made with prior study dated October 03, 2024. FINDINGS: EKG electrodes are seen. There is elevation of the right hemidiaphragm. Increased markings at the lung bases suggestive of left basilar atelectasis. There is no demonstrated pleural abnormality. Normal size heart. Normal mediastinum and keli. Normal visualized pulmonary arteries. Normal visualized aortic arch and descending thoracic aorta. There are diffuse degenerative changes of the visualized thoracic spine. Normal visualized ribs, clavicles, and shoulders. There is no demonstrated abnormality of the visualized soft tissue structures of the upper abdomen. RAD/Chest 1 View (Portable) IMPRESSION: Elevation of the right hemidiaphragm. Increased linear markings at the lung bases suggestive of bibasilar atelectasis. Electronically Signed: Kevin Gaxiola MD at 14:17 EST ,
--- NOTE | 2024-10-28 13:55 | ED.RN ---
Again, pt. continued to press call light every few minutes asking for more pain meds and to get onto bedside commode. pt. educated several times that a CT scan is necessary to attempt diagnosis.
[2024-10-28 14:13] LABS: ALB/GLOB Ratio 0.8 RATIO (0.9-2.4); AST(SGOT) 28 U/L (15-37); Alanine Aminotransfer ALT/SGPT 28 U/L (13-56); Albumin, Serum 3.5 g/dL (3.2-5.0); Alkaline Phosphatase 71 U/L (45-117); Anion Gap 10 (5-15); BUN 23 mg/dL (7-18); BUN/Creat Ratio 20.4 RATIO (10-20); Calcium,Total 9.7 mg/dL (8.5-10.1); Chloride 101 mmol/L (98-107); Creatinine, Serum 1.13 mg/dL (0.55-1.02); EST Glomerular Filtration Rate 52 mL/min (>60); Est Glom Filt Rate - Afr Amer 63 mL/min (>60); Estimated Creatinine Clearance 73.79 ml/min; Globulin 4.6 g/dL (2.2-4.2); Glucose 457 mg/dL (74-106); Lipase 14 U/L (13-75); Protein, Total 8.1 g/dL (6.4-8.2); Sodium Level 134 mmol/L (136-145)
--- NOTE | 2024-10-28 14:15 | ED.RN ---
pt. was found to be walking around room, took all lines off, removed nasal cannula, pooped all over floor. When this RN went into room pt. stated i cant get back to my bed I need help despite her ambulating around room and pooping all over floor. pt. is extremely sweaty. Pt. was assisted back into bed and placed in soft wrist restraints for her own safety. family updated. Dr. de la paz notified and additional orders were placed.
[2024-10-28] MEDS: LORazepam 2 MG/ML Syringe 1 MG IV (14:32)
--- NOTE | 2024-10-28 15:09 | ED.RN ---
pt. ripped out right hand IV
--- NOTE | 2024-10-28 15:44 | RAD_ITS ---
STUDY: X-RAY - ABDOMEN/PELVIS REASON FOR EXAM: Female, 59 years old. NG Insertion TECHNIQUE: AP portable COMPARISON: None. FINDINGS: Left lower lobe atelectasis or infiltrate Nonspecific diffuse bowel distention noted. There is no demonstrated free abdominal air. The visualized liver, spleen and kidneys are grossly normal in size and morphology. NG tube placement with tip in the mid to distal gastric fundus Normal soft tissue structures. Normal visualized osseous structures. RAD/Abdomen Single View (Portable) IMPRESSION: NG tube noted with tip in the mid to distal gastric fundus Electronically Signed: Zack Swan MD at 18:48 EST ,
--- NOTE | 2024-10-28 15:44 | HP.PCM.HOS_ITS ---
HPI - General General Date of Admission: 10/28/24 Date of Service: 10/28/24 Chief Complaint: Worsening constipation with abdominal distention HPI Narrative GARTH MACK, is a 59 F who presented to [facility] ED on 10/28/2024 with worsening constipation and abdominal distention. Patient has complicated past medical history that includes schizoaffective disorder. She was hospitalized here briefly from 10/03 to 10/04 for concern for acute on chronic debility with falls. However she did well with therapy and was able to be discharged home with no therapy needs on hospital day 2. She apparently does have a home furnishings sales representative that comes in to see her on a daily basis. Patient presented via EMS today with reported worsening abdominal distention and constipation. In the ED she was hypertensive to the 170s systolic and tachycardic to the 110s. She was breathing comfortably on her home 3 to 4 L nasal cannula with oxygen saturations in the low to mid 90s. Labs notable for creatinine 1.13 (baseline around 0.7) and glucose 457. CT abdomen pelvis with IV contrast showed gaseous distention of the stomach, gaseous distention of the colon with fecal material down to the rectum, and fluid-filled small bowel loops but no evidence of bowel obstruction. Disimpaction was attempted in the ED with nursing assistance; gas was being expelled during the procedure but not much stool was removed. Gave soapsuds enema in the ED shortly after that. Given her CONNOR, hyperglycemia and significant constipation, hospitalist was contacted for admission. Before seeing the patient I discussed further with Dr. Hicks and based on the significant distention of the stomach and small bowels, decision was made to place an NG tube. Patient tolerated NG tube placement without issue. When I saw the patient, she had already had almost a liter of dark brown contents removed. She was fatigued appearing and answer questions only with short responses but did states she felt a bit better now than previously. Nursing staff also noted that she had had a significant bowel movement after the soapsuds enema. Will be admitted for further management. [facility] Medical History (Updated 10/28/24 @ 18:45 by Rayna Barker) Bipolar disorder Non-smoker CPAP (continuous positive airway pressure) dependence On home oxygen therapy Myocardial infarct Hypertension Seizures History of ESBL E. coli infection Schizophrenia Diabetes PTSD (post-traumatic stress disorder) Depression Schizo affective schizophrenia Other specified peripheral vascular diseases Essential hypertension Chest pain Diabetes mellitus type 2, uncontrolled, with complications Back pain Asthma Knee pain Migraines Fatigue Hemorrhoids COPD (chronic obstructive pulmonary disease) Arthritis Pain syndrome, chronic Bipolar disorder Obstructive sleep apnea Stasis dermatitis of both legs Venous insufficiency of both lower extremities Super obese Open wound of left lower extremity GERD (gastroesophageal reflux disease) Benign hypertension ADHD (attention deficit hyperactivity disorder) Home Medications ?Medication ?Instructions ?Recorded ?Last Taken ?Type bupropion HCl 300 mg 24 hr tablet, 450 mg PO DAILY mental health 03/05/17 10/03/24 History extended release albuterol sulfate 90 mcg/actuation 2 puff inhalation Q4H PRN Sob &/Or 05/29/18 07/07/18 History aerosol inhaler Wheezing glimepiride 2 mg tablet 4 mg PO BID diabetes 09/20/18 10/03/24 History dicyclomine 10 mg capsule 20 mg (2 x 10 mg) PO TIDAC #20 caps 07/28/19 10/03/24 Rx escitalopram oxalate 10 mg tablet 20 mg PO DAILY mental health 08/04/19 10/03/24 History fluticasone propionate 50 2 spray NASAL DAILY allergies 08/04/19 10/03/24 History mcg/actuation nasal spray,suspension tizanidine 4 mg capsule 4 mg PO BID PRN Muscle Spasm 07/15/20 Unknown History aspirin 81 mg chewable tablet 81 mg PO DAILY@0800 07/17/20 10/03/24 Rx nadolol 80 mg tablet 80 mg PO BID high blood pressure 07/08/21 10/03/24 History buspirone 10 mg tablet 20 mg PO TID mood 01/25/22 10/03/24 History cetirizine 10 mg tablet (Zyrtec) 10 mg PO DAILY allergies 01/25/22 10/03/24 History colchicine 0.6 mg tablet 0.6 mg PO DAILY . 01/25/22 10/03/24 History guaifenesin 600 mg tablet, 1,200 mg PO BID PRN Cough 01/25/22 Unknown History extended release 12 hr (Mucinex) hydroxyzine pamoate 25 mg capsule 25 - 75 mg PO BID PRN Itching 01/25/22 Unknown History (Vistaril) hyoscyamine sulfate 0.125 mg 0.125 mg PO Q6H PRN IBS 01/25/22 Unknown History tablet (Levsin) ketorolac 10 mg tablet 10 mg PO Q6H PRN SEVERE HEADACHE 01/25/22 Unknown History lidocaine 4 % topical cream 1 applic topical TID PRN Pain 01/25/22 Unknown History lorazepam 0.5 mg tablet (Ativan) 0.5 - 1 mg PO BID PRN Panic 01/25/22 Unknown History Attack(S) primidone 250 mg tablet 250 mg PO BID seizures 01/25/22 10/03/24 History triamcinolone acetonide 0.1 % 1 applic topical TID PRN Rash 01/25/22 Unknown History topical cream fluticasone 500 mcg-salmeterol 50 1 inh inhalation BID . 05/02/22 10/03/24 History mcg/dose blistr powdr for inhalation insulin glargine 100 unit/mL (3 43 unit subcut QHS 05/02/22 10/02/24 History mL) subcutaneous pen (Lantus Solostar U-100 Insulin) omeprazole 40 mg capsule,delayed 40 mg PO DAILY gerd 05/02/22 10/03/24 History release oxybutynin chloride 10 mg 20 mg PO DAILY bladder 05/02/22 10/03/24 History tablet,extended release 24 hr paliperidone palmitate 117 mg/0.75 117 mg IM Q21D 05/02/22 09/25/24 History mL intramuscular syringe (Invega Sustenna) ergocalciferol (vitamin D2) 1,250 50,000 unit PO MOTH 08/10/22 10/03/24 History mcg (50,000 unit) capsule (Vitamin D2) insulin lispro 100 unit/mL See Rx Instructions subcut QAC DM 08/10/22 10/03/24 History subcutaneous pen lactulose 10 gram/15 mL oral 30 ml PO BID PRN Constipation 08/10/22 Unknown History solution pregabalin 150 mg capsule 150 mg PO TID pain 08/10/22 10/03/24 History valacyclovir 500 mg tablet 500 mg PO DAILY 08/10/22 10/03/24 History promethazine 25 mg tablet 25 mg PO Q6H PRN nausea and 05/10/23 Unknown Rx vomiting 7 days #28 tabs hydrocodone-acetaminophen 5-325mg 1 tab PO Q6H PRN pain 08/28/23 Unknown History 5mg-325mg acidophilus 25 million 1 tab PO DAILY 10/03/24 10/03/24 History cell-pectin, citrus 100 mg tablet lisinopril 10 mg tablet 10 mg PO BID blood pressure 10/03/24 Unknown History naratriptan 2.5 mg tablet See Rx Instructions PO .COMPLEX 10/03/24 Unknown History headache ondansetron 4 mg disintegrating 8 mg PO Q8H PRN Nausea 10/03/24 Unknown History tablet oxycodone-acetaminophen 5 mg-325 1 tab PO Q6H PRN pain 10/03/24 Unknown History mg tablet trazodone 150 mg tablet 150 mg PO QHS sleep 10/03/24 10/02/24 History Allergy/AdvReac Type Severity Reaction Status Date / Time meloxicam Allergy Severe Anaphylaxis Verified 10/28/24 12:44 vancomycin Allergy Severe BURNING Verified 10/28/24 12:44 RED RASH ON LEGGS amlodipine (From Norvasc) Allergy Swelling Verified 10/28/24 12:44 cefazolin sodium (From Ancef) Allergy Hives Verified 10/28/24 12:44 fexofenadine (From Nia) Allergy Shortness Verified 10/03/24 12:19 of breath nitrofurantoin (From Allergy Hives Verified 10/28/24 12:44 Macrobid) peanut Allergy Shortness Verified 10/28/24 12:44 of breath Penicillins Allergy Hives Verified 10/28/24 12:44 sumatriptan (From Imitrex) Allergy Shortness Verified 10/28/24 12:44 of breath adhesive AdvReac BURNING Verified 10/28/24 12:44 amitriptyline (From Elavil) AdvReac Other Verified 10/28/24 12:44 clindamycin AdvReac Diarrhea Verified 10/28/24 12:44 ziprasidone (From Geodon) AdvReac NEEDS Verified 10/28/24 12:44 FOLLOW-UP Family History Father CVA (cerebral vascular accident) Heart disease Mother Heart disease Surgical History History of elbow surgery (~06/2020) History of arthroscopic knee surgery History of left heart catheterization (07/16/20) Kidney stone H/O hernia repair Hx of hysterectomy Hx of section Social History household members: spouse housing: house Smoking Status: Never smoker alcohol intake: current alcohol intake frequency: holidays/special occasions only Alcohol type: wine substance use type: does not use caffeine: Yes (occasionally) ROS Constitutional Constitutional: Reports fatigue; Denies chills, fever(s) or weakness Cardiovascular Cardiovascular: Denies chest pain Respiratory/Chest Respiratory/Chest: Denies shortness of breath at rest Gastrointestinal Gastrointestinal: Reports abdominal pain, constipation and nausea; Denies diarrhea or vomiting Vital Signs Vital Signs Vital Signs: 10/28/24 12:37 10/28/24 13:14 10/28/24 14:36 Temperature 98.2 F Temperature Source Oral Pulse Rate 111 H 135 H Respiratory Rate 18 27 H Blood Pressure 175/91 H 147/106 H Blood Pressure Mean 119 119 Pulse Ox 90 89 Oxygen Delivery Method Nasal Cannula Nasal Cannula Nasal Cannula Oxygen Flow Rate (L/min) 4 Weight Weight: 138 kg Body Mass Index (BMI) 50.6 Physical Exam Const alert Constitutional Narrative: Middle-age female, class III obesity, very fatigued appearing, answering some questions with short appropriate responses but not responding to some questions, otherwise sitting up in bed and in no acute distress. General Appearance: cooperative HEENT normocephalic, head/scalp atraumatic, hearing grossly normal bilaterally and nasal mucous membranes and turbinates normal HEENT Narrative: NG tube in place to suction with significant dark brown liquid output noted. Dry mucous membranes. Eyes PERRL, EOMs intact bilaterally and conjunctivae normal Neck full ROM Chest inspection of chest normal Resp normal respiratory effort, normal air movement, no use of accessory muscles and clear to auscultation bilaterally Cardio no murmurs and peripheral pulses 2+ throughout Cardio Narrative: Tachycardic, regular rhythm. GI GI Narrative: Abdomen mildly distended but otherwise soft and nontender to palpation. Hypoactive bowel sounds noted. Back/Spine normal ROM Extremity normal to inspection and no pedal edema Skin no rashes or lesions noted Results Lab / Micro Data 10/28/24 13:01 10/28/24 13:01 Labs: Laboratory Results - last 24 hr 10/28/24 13:01: WBC 10.7, RBC 4.30, Hgb 11.0 L, Hct 36.1 L, MCV 84.0, MCH 25.6 L , MCHC 30.5 L, RDW Std Deviation 50.4 H, RDW Coeff of Jocy 16.5 H, Plt Count 252, MPV 10.1, Immature Gran % (Auto) 0.900, Neut % (Auto) 84.1 H, Lymph % (Auto) 9.3 L, [place] % (Auto) 5.6, Eos % (Auto) 0.0, Baso % (Auto) 0.1, Absolute Neuts (auto) 9.0 H, Absolute Lymphs (auto) 1.00, Nucleated RBC % 0, Sodium 134 L, Potassium 5.0, Chloride 101, Carbon Dioxide 23.0, Anion Gap 10, BUN 23 H, Creatinine 1.13 H, Estim Creat Clear Calc 73.79, Est GFR (MDRD) Af Amer 63, Est GFR (MDRD) Non- Af 52 L, BUN/Creatinine Ratio 20.4 H, Glucose 457 H*, Calcium 9.7, Total Bilirubin 0.30, AST 28, ALT 28, Alkaline Phosphatase 71, Total Protein 8.1, Albumin 3.5, Globulin 4.6 H, Albumin/Globulin Ratio 0.8 L, Lipase 14 10/28/24 14:30: Ammonia 53.0 H Imaging Radiology Impression Abdomen/Pelvis CT 10/28/24 13:14 IMPRESSION: Gaseous distention of the stomach with fluid and fecal material. Fluid filled small bowel loops although no evidence of bowel obstruction. Nonobstructive right intrarenal calculi. Bilateral parapelvic cysts. Electronically Signed: Kevin Gaxiola MD at 15:07 EST , Chest X-Ray 10/28/24 13:55 IMPRESSION: Elevation of the right hemidiaphragm. Increased linear markings at the lung bases suggestive of bibasilar atelectasis. Electronically Signed: Kevin Gaxiola MD at 14:17 EST , Assessment & Plan Assessment/Plan (1) Constipation: PLAN: Plan Patient is a 59-year-old female who presented [facility] ED on 10/28/2024 with worsening constipation. 1. Abdominal distention with constipation ? Admit under inpatient status to [facility]. CT abdomen pelvis with IV contrast on admit showed gaseous distention of the stomach, gaseous distention of the colon with fecal material down to the rectum, and fluid-filled small bowel loops but no evidence of bowel obstruction. Disimpaction attempted in ED initially with minimal output but after soapsuds enema patient has had multiple bowel movements. NG tube placed in the ED and patient has had over 1 L with improvement in symptoms. Repeat KUB ordered for tomorrow and if it shows improvement, can likely remove NG tube. Suspect constipation is multifactorial from poor mobility at baseline and chronic pain medications as noted below. Will start senna 2 tablets twice daily and give daily Dulcolax suppositories for 3 days. Low threshold to involve GI or surgery as needed. 2. CONNOR ? Creatinine 1.13 on admit, baseline around 0.7. Presumed prerenal from mild dehydration. Given 1 L of IV fluids in the ED. Follow-up a.m. BMP and monitor urine output. 3. Type 2 diabetes mellitus with hyperglycemia ? Blood glucose 457 on admit. Most recent A1c 9.1% on 10/04. N.p.o. status while NG tube in place for patient. Will treat with reduced dose of Lantus 30 units at night and sliding scale insulin with meals for now, adjust as needed. 4. Chronic back pain with neuropathy and chronic debility ? PT/OT/case management consulted. Patient lives at home and has home furnishings sales representative come in about every day. Suspect debility is multifactorial from chronic pain and mental health issues leading to very poor mobility and effort at baseline. Checked OARRS and she has been filling her opiates regularly. Continue home hydrocodone?acetaminophen and pregabalin. 5. Schizoaffective disorder ? Unclear who she follows with for this. At last hospitalization about 1 month ago she did note worsening stress recently with her son needing psychiatric hospitalization. Has apparently been on same medication regimen with no changes for a long time. Continue home medications. Chronic medical conditions: ? Class III obesity: BMI 48 on admit. Complicates hospital course, care and prognosis. ? Hypertension: Mildly hypertensive on admission. Continue home nadolol. Holding home lisinopril in setting of CONNOR, restart when able. IV hydralazine as needed ordered as well. ? GERD: Continue home PPI. ? Overactive bladder: Continue home oxybutynin. ? Normocytic anemia: Hemoglobin 11.0 on admit, baseline around 9-10. Suspect some degree of hemoconcentration. Follow-up a.m. CBC. DVT prophylaxis: Lovenox twice daily CODE STATUS: Full code, verified Expected disposition: TBD Total clinical time spent by myself addressing the patient's medical issues, reviewing all the data, and collaborating with patient's care team: 75 minutes. Charges/Coding Visit Charges Inpatient E&M: 47247 Init Hosp L3
[2024-10-28] MEDS: Insulin Lispro 100 UNIT/ML INSULN.PEN 15 UNIT SC (16:43)
[2024-10-28] MEDS: 0.9% Normal Saline (1000mL) 1,000 ML 999 ML IV (16:44)
[2024-10-28] MEDS: hydrALAZINE 20 MG/ML Vial 10 MG IV (17:20)
[2024-10-28] MEDS: Pregabalin 75 MG Capsule 150 MG PO (21:17)
[2024-10-28] MEDS: traZODone 100 MG Tablet 150 MG PO (21:17)
[2024-10-28] MEDS: Acetaminophen 325 MG Tablet 650 MG PO (21:17)
[2024-10-28] MEDS: Primidone 250 MG Tablet PO (21:17)
[2024-10-28] MEDS: Pantoprazole Sodium 40 MG Tablet PO (21:18)
[2024-10-28] MEDS: Enoxaparin 40 MG/0.4 ML Syringe SC (21:25)
[2024-10-28] MEDS: busPIRone 5 MG Tablet 20 MG PO (21:36)
[2024-10-28] MEDS: Nadolol 40 MG Tablet 80 MG PO (21:36)
[2024-10-28] MEDS: Insulin Lispro 100 UNIT/ML INSULN.PEN SC (21:37)
[2024-10-28 22:30] LABS: Bedside Glucose 323 mg/dL (74-106)
[2024-10-29] VITALS (9 sets, daily range): BP systolic 137–161; BP diastolic 71–90; PULSE 72–91; RESP 15–22; TEMP 36.6–37; O2SAT 94–100
[2024-10-29] MEDS: HYDROcodone Bitartrate/Apap 5/325 Tablet PO (01:58)
[2024-10-29] MEDS: Acetaminophen 325 MG Tablet 650 MG PO ×3 (04:08→21:04)
[2024-10-29] MEDS: Dicyclomine 10 MG Capsule 20 MG PO ×3 (06:25→17:06)
[2024-10-29] MEDS: Pregabalin 75 MG Capsule 150 MG PO ×2 (06:25→14:54)
[2024-10-29] MEDS: busPIRone 5 MG Tablet 20 MG PO ×3 (06:25→21:03)
[2024-10-29] MEDS: Insulin Lispro 100 UNIT/ML INSULN.PEN SC ×4 (06:32→21:03)
[2024-10-29] MEDS: 0.9% Saline Lock 10 ML Syringe IV ×2 (06:36→11:47)
[2024-10-29 07:07] LABS: Bedside Glucose 316 mg/dL (74-106)
[2024-10-29] MEDS: Budesonide Respules 0.5 MG/2 ML AMPUL.NEB. INHALATION (07:20)
[2024-10-29] MEDS: Albuterol 2.5 MG/3 ML VIAL.NEB. INHALATION ×3 (07:20→22:41)
[2024-10-29 07:31] LABS: Hematocrit 33.8 % (37-47); Hemoglobin 10.3 g/dL (12.0-15.0); Mean Corp Hgb Conc 30.5 g/dL (32-36); Mean Corpuscular Hgb 25.2 pg (27.0-32.0); Mean Corpuscular Volume 82.8 fL (81-99); Mean Platelet Vol. 9.5 fl (6.2-12.0); Platelet Count 194 K/mm3 (150-450); RBC Distribution Width CV 16.3 % (11.6-14.6); RBC Distribution Width SD 49.5 fl (35.1-43.9); Red Blood Count 4.08 M/mm3 (4.2-5.4); White Blood Count 11.2 K/mm3 (4.4-11.0)
--- NOTE | 2024-10-29 07:45 | RAD_ITS ---
EXAM: XR ABDOMEN, 1 VIEW CLINICAL INDICATION: re-eval abd distension TECHNIQUE: Frontal supine view of the abdomen/pelvis. COMPARISON: XR Abdomen dated 10/28/2024 FINDINGS: GASTROINTESTINAL TRACT: Persistent gaseous distention of the bowel, improved from prior exam. ORGANS: No organomegaly. BONES/JOINTS: No acute abnormality. TUBES, LINES AND DEVICES: Interval removal of the endogastric tube. RAD/Abdomen Single View (Portable) IMPRESSION: Improving bowel distention. Electronically Signed: Daniel Cesar MD at 8:59 EST ,
[2024-10-29 08:02] LABS: Anion Gap 5 (5-15); BUN 15 mg/dL (7-18); BUN/Creat Ratio 18.9 RATIO (10-20); Calcium,Total 9.7 mg/dL (8.5-10.1); Chloride 103 mmol/L (98-107); Creatinine, Serum 0.79 mg/dL (0.55-1.02); EST Glomerular Filtration Rate 78 mL/min (>60); Est Glom Filt Rate - Afr Amer 95 mL/min (>60); Estimated Creatinine Clearance 102.56 ml/min; Glucose 333 mg/dL (74-106); Potassium 4.1 mmol/L (3.5-5.1); Sodium Level 138 mmol/L (136-145)
--- NOTE | 2024-10-29 08:21 | PN.HOSP_ITS ---
Reason for Visit Reason for Visit: Diagnoses Constipation, unspecified (10/28/24) Subjective Subjective Patient self discontinued her NG tube. Been having bowel movements. Patient was put on a diet and did not tolerate that and I did follow-up on her later in the day. Objective Data Objective Data Vital Signs: Vital Signs Temp Pulse Resp BP Pulse Ox O2 Del Method O2 Flow Rate 36.6 C 78 18 137/77 H 95 Nasal Cannula 3 10/29/24 07:00 10/29/24 07:24 10/29/24 07:24 10/29/24 07:00 10/29/24 07:24 10/29/24 07:24 10/29/24 07:24 Oxygen Flow Rate (L/min) 3 Oxygen Delivery Method Nasal Cannula Weight: 131.678 kg Body Mass Index (BMI) 48.3 Intake & Output: Intake and Output for Last 24 Hours 10/27/24 10/28/24 10/29/24 23:59 23:59 23:59 Intake Total 1020 / 1020 30 / 30 Output Total 600 / 600 350 / 350 Balance 420 / 420 -320 / -320 Lab / Micro Data 10/29/24 06:40 10/29/24 06:40 Labs: Laboratory Results - last 24 hr 10/28/24 13:01: WBC 10.7, RBC 4.30, Hgb 11.0 L, Hct 36.1 L, MCV 84.0, MCH 25.6 L , MCHC 30.5 L, RDW Std Deviation 50.4 H, RDW Coeff of Jocy 16.5 H, Plt Count 252, MPV 10.1, Immature Gran % (Auto) 0.900, Neut % (Auto) 84.1 H, Lymph % (Auto) 9.3 L, [place] % (Auto) 5.6, Eos % (Auto) 0.0, Baso % (Auto) 0.1, Absolute Neuts (auto) 9.0 H, Absolute Lymphs (auto) 1.00, Nucleated RBC % 0, Sodium 134 L, Potassium 5.0, Chloride 101, Carbon Dioxide 23.0, Anion Gap 10, BUN 23 H, Creatinine 1.13 H, Estim Creat Clear Calc 73.79, Est GFR (MDRD) Af Amer 63, Est GFR (MDRD) Non- Af 52 L, BUN/Creatinine Ratio 20.4 H, Glucose 457 H*, Calcium 9.7, Total Bilirubin 0.30, AST 28, ALT 28, Alkaline Phosphatase 71, Total Protein 8.1, Albumin 3.5, Globulin 4.6 H, Albumin/Globulin Ratio 0.8 L, Lipase 14 10/28/24 14:30: Ammonia 53.0 H 10/28/24 21:24: POC Glucose 323 H 10/29/24 06:31: POC Glucose 316 H 10/29/24 06:40: WBC 11.2 H, RBC 4.08 L, Hgb 10.3 L, Hct 33.8 L, MCV 82.8, MCH 25.2 L, MCHC 30.5 L, RDW Std Deviation 49.5 H, RDW Coeff of Jocy 16.3 H, Plt Count 194, MPV 9.5, Sodium 138, Potassium 4.1, Chloride 103, Carbon Dioxide 30.0, Anion Gap 5, BUN 15, Creatinine 0.79, Estim Creat Clear Calc 102.56, Est GFR (MDRD) Af Amer 95, Est GFR (MDRD) Non-Af 78, BUN/Creatinine Ratio 18.9, G lucose 333 H, Calcium 9.7 Radiography Diagnostic Testing: Radiology Impression Abdomen/Pelvis CT 10/28/24 13:14 IMPRESSION: Gaseous distention of the stomach with fluid and fecal material. Fluid filled small bowel loops although no evidence of bowel obstruction. Nonobstructive right intrarenal calculi. Bilateral parapelvic cysts. Electronically Signed: Kevin Gaxiola MD at 15:07 EST , Chest X-Ray 10/28/24 13:55 IMPRESSION: Elevation of the right hemidiaphragm. Increased linear markings at the lung bases suggestive of bibasilar atelectasis. Electronically Signed: Kevin Gaxiola MD at 14:17 EST , KUB X-Ray 10/28/24 15:44 IMPRESSION: NG tube noted with tip in the mid to distal gastric fundus Electronically Signed: Zack Swan MD at 18:48 EST Reading Location ID and State: [facility] / [place] Tel , Service support , Physical Exam Const Constitutional Narrative: Round on the patient twice and when I first saw her she was very groggy and actually dozed off during the encounter. The second time when I saw her she was probably dozing off until I told her I was discontinuing her narcotics and then she became alert and then asked what else can do about her headache. HEENT head/scalp atraumatic and moist oral mucous membranes Resp normal respiratory effort, no retractions, no use of accessory muscles and clear to auscultation bilaterally Cardio regular rate, regular rhythm, S1 normal heart sound and S2 normal heart sound GI normal to inspection, nondistended, normoactive bowel sounds, soft to palpation, non-tender and non-distended Assessment & Plan Assessment/Plan (1) Constipation: PLAN: Plan Abdominal distention * with constipation and ileus. Cannot rule out diabetic/narcotic gastroparesis * NGT placed then patient discontinued it. * Had soap suds enema with postive BM * I am very concerned about narcotic side effects and discontinued he [place] for now. But that needed to be resumed so as to mitigate withdrawal but being that she is barely weak right now will discontinue that. Chronic pain. * OARSS reviewed. Past 2 months as follows: * 10/24/24: filled [facility] prescribed #112 hydrocodone/APAP 5/325 * 10/10/24: filled Dr Wolf prescribed #28 oxy/APAP 5/325 * 10/04/24: filled [facility] Ty prescribed #84 pregabalin 150 * 09/30/24: filled [facility] Ty prescribed #60 lorazepam 1mg * 09/20/24: filled Dr. Wolf prescribed #112 hydrocodone/APAP 5/325 * 09/18/24: filled Dr Wolf prescribed #28 oxy/APAP 5/325 * 09/08/24: filled [facility] Ty prescribed #84 pregabalin 150 * 08/28/24: filled Dr. Wolf prescribed #60 lorazepam 1mg * 08/23/24: filled Dr. Wolf prescribed #112 hydrocodone/APAP * Ideally, with the ileus and constipation, narcotics should be weaned down. * Patient is fully very somnolent and only became more alert when I told her discontinuing narcotics given her lack of improvement. 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 I strongly encouraged that she follow-up with addiction medicine as outpatient though I am skeptical that she would actually follow-up with. Might going to discontinue her pregabalin, trazodone and start a weaning process of her lorazepam. CONNOR: * POA with creatinine of 1.13. Now resolved with IVF * no additional work up at this time. DM2 * poorly controlled with an A1c of 9.1 * continue glargine at reduced dose for now as she is NPO. chronic medical conditions: * Class III obesity: BMI 48 on admit. Complicates hospital course, care and prognosis. * Hypertension: Mildly hypertensive on admission. Continue home nadolol. Holding home lisinopril in setting of CONNOR, restart when able. IV hydralazine as needed ordered as well. * GERD: Continue home PPI. * Overactive bladder: Continue home oxybutynin. * Normocytic anemia: Hemoglobin 11.0 on admit, baseline around 9-10. Suspect some degree of hemoconcentration. Follow-up a.m. CBC. * schizoaffective disorder? Unclear who she follows with for this. At last hospitalization about 1 month ago she did note worsening stress recently with her son needing psychiatric hospitalization. Has apparently been on same medication regimen with no changes for a long time. Continue home medications. DVT prophylaxis: Lovenox twice daily CODE STATUS: Full code, verified Expected disposition: TBD Greater than 50 minutes of which greater than 50% of time was rounding then we rounding on the patient, discussing with her about narcotics and his issues with constipation as well as potential ileus. But then when after I rerounded on her explained my see my concerns about medication misuse and her need to see addiction counseling as outpatient. Charges/Coding Visit Charges Inpatient E&M: 96750 Subs Hosp L3
--- NOTE | 2024-10-29 10:57 | CASEMGMT ---
LUIS MIGUEL PARRA Assessment Face to Face with patient for initial transition planning/care coordination assessment. RN CM introduced self and role at [facility], pt voices understanding. Pt is A&Ox4 and is resting comfortably in bed and is calm. Pt kindergarten aide (Kenyetta Salazar) and Father at bedside. Care providers, pharmacy, and demographics verified. Admitting dx: Severe constipation, CONNOR, Hyperglycemia LACE Strata: 3 PCP: Cristal Wolf Specialists: Pt [facility] but is unsure who this is. Pt also has a counselor through [facility] Preferred Pharmacy: [facility] Insurance: [employer] Prescription Benefit: Yes LNOK: Elliott Valenzuela (Father) Living Arrangements: Pt lives alone in a single story apartment with a flat entrance ADLs/IADLs: Pt requires assistance and is active with a home assessment nurse (Kenyetta) through [facility] [employer]. Kenyetta states that she is at the pt home M-F. Pt father is also close and is able to support the pt. Transportation: Father. Denies concerns DME: home oxygen through [employer]. Pt states that she wears 3L continuous. CM to verify current Rx. Pt states that she has a concentrator, portable tanks, and a pulse ox. Pt father states that there is a portable tank in his vehicle in the parking lot. Pt also has a BGM and CBGM with sufficient supplies. Pt states that she also has the following: FWW, Rollator, Grab bars, shower chair, and medical alert system. HHC/SNF: Reports skilled HH Hx but is unsure of the agency. Denies SNF Hx Community Resources: Pt is active with [facility]. Per chart review, the pt CM is Richa Tam ([phone]). TC to the CM at this time. No answer, VM left. Pt?s goal: Return home Plan: Anticipate eventual DC home once medically ready. Pt states that she feels safe enough with the current resources that she has and denies wanting skilled HH or OP Tx set up at this time. Pt denies SNF needs. However, 6-Click score is 9 and therapy evaluations are pending. CM to follow. Report given to SIOMARA BOLANOS CM. Harvey Zaldivar RN, CM
[2024-10-29] MEDS: Aspirin 81 MG TAB.CHEW PO (11:44)
[2024-10-29] MEDS: Colchicine 0.6 MG TABLET PO (11:44)
[2024-10-29] MEDS: Loratadine 10 MG Tablet PO (11:44)
[2024-10-29] MEDS: Enoxaparin 40 MG/0.4 ML Syringe SC ×2 (11:45→21:04)
[2024-10-29] MEDS: Tolterodine Tartrate 4 MG CAP.SA PO (11:45)
[2024-10-29] MEDS: Nadolol 40 MG Tablet 80 MG PO ×2 (11:45→21:03)
[2024-10-29] MEDS: Primidone 250 MG Tablet PO ×2 (11:45→21:04)
[2024-10-29] MEDS: Escitalopram Oxalate 20 MG Tablet PO (11:45)
[2024-10-29] MEDS: Pantoprazole Sodium 40 MG Tablet PO ×2 (11:46→21:04)
[2024-10-29] MEDS: buPROPion (XL) 150 MG TABLET.XL 450 MG PO (11:46)
[2024-10-29] MEDS: Ondansetron 4 MG/2 ML Vial IV (11:46)
[2024-10-29] MEDS: Acyclovir 200 MG Capsule 400 MG PO ×2 (11:46→21:04)
[2024-10-29 12:25] LABS: Bedside Glucose 318 mg/dL (74-106)
--- NOTE | 2024-10-29 14:47 | CASEMGMT ---
Discharge Planning Call rec'd from N . They are currently providing PT/OT/SN but will not resume care. They reported that patient has mounting legal matters and is most appropriate for [place]. RN CM updated. Nat Gtz DC Planning Asst.
--- NOTE | 2024-10-29 15:27 | CHAPLAIN ---
Type of Pastoral Visit _x__ Initial Visit ___ Follow-up Visit ___ On-call Visit ___ General Patient Visit ___ Spiritual Assessment ___ Family Conference ___ Bereavement ___ Rapid Response ___ Code Blue ___ Other (describe below) Pastoral Care Referral From _x__ Patient ___ Family ___ Nurse ___ Physician ___ Industrial Equipment Mechanic ___ [facility] [facility] ___ Other (describe below) Sacrament/Intervention _x__ Active listening ___ Anointing ___ Episcopalian ___ Bereavement ___ Communion ___ Rianna exploration ___ _x__ Life review _x__ Prayer ___ Reconciliation ___ Sacrament of Sick _x__ Supportive presence ___ Wedding ___ Other (describe below) Pastoral Comments patient and some of her family members have been seen before in previous admissions; pt speaks of her health need and what is happening in her home; pt has a prayer request for a personal matter; pt is tired and is encouraged to rest now; presence and prayer given
--- NOTE | 2024-10-29 15:39 | CASEMGMT ---
Social Work- SW called and left a message for Richa Tam for collaboration and coordination of care. SHIVA remains available to follow. MADAN Key
[2024-10-29 16:53] LABS: Bedside Glucose 268 mg/dL (74-106)
[2024-10-29] MEDS: Insulin Glargine-YFGN 100 UNIT/ML Pen 30 UNIT SC (21:04)
[2024-10-29 22:04] LABS: Bedside Glucose 259 mg/dL (74-106)
[2024-10-30] VITALS (7 sets, daily range): BP systolic 147–150; BP diastolic 66–78; PULSE 68–75; RESP 18–24; TEMP 36.4–36.7; O2SAT 97–98
[2024-10-30] MEDS: Rizatriptan Benzoate 5 MG Tablet PO (03:04)
[2024-10-30] MEDS: Albuterol 2.5 MG/3 ML VIAL.NEB. INHALATION ×3 (04:32→13:11)
[2024-10-30] MEDS: busPIRone 5 MG Tablet 20 MG PO ×2 (05:21→14:51)
[2024-10-30] MEDS: Dicyclomine 10 MG Capsule 20 MG PO ×2 (05:21→11:51)
[2024-10-30] MEDS: guaiFENesin 1,200 MG Tablet 1200 MG PO (05:21)
[2024-10-30] MEDS: Insulin Lispro 100 UNIT/ML INSULN.PEN SC ×2 (06:20→11:48)
[2024-10-30 06:39] LABS: Bedside Glucose 255 mg/dL (74-106)
--- NOTE | 2024-10-30 07:21 | PN.HOSP_ITS ---
Reason for Visit Reason for Visit: Diagnoses Constipation, unspecified (10/28/24) Subjective Subjective Feeling much better. Tolerating some diet. Still with BMs. Has been on lactulose for about 6 months, and this is the first time that she recalls being constipated. Objective Data Objective Data Vital Signs: Vital Signs Temp Pulse Resp BP Pulse Ox O2 Del Method O2 Flow Rate 36.4 C L 68 24 H 147/78 H 97 Nasal Cannula 3 10/30/24 03:01 10/30/24 04:32 10/30/24 04:32 10/30/24 03:01 10/30/24 03:01 10/30/24 03:17 10/30/24 03:17 Oxygen Flow Rate (L/min) 3 Oxygen Delivery Method Nasal Cannula Weight: 131.7 kg Body Mass Index (BMI) 48.3 Intake & Output: Intake and Output for Last 24 Hours 10/28/24 10/29/24 10/30/24 23:59 23:59 23:59 Intake Total 1020 / 1020 330 / 480 150 / 150 Output Total 600 / 600 350 / 350 Balance 420 / 420 -20 / 130 150 / 150 Lab / Micro Data 10/29/24 06:40 10/29/24 06:40 Labs: Laboratory Results - last 24 hr 10/29/24 06:40: WBC 11.2 H, RBC 4.08 L, Hgb 10.3 L, Hct 33.8 L, MCV 82.8, MCH 25.2 L, MCHC 30.5 L, RDW Std Deviation 49.5 H, RDW Coeff of Jocy 16.3 H, Plt Count 194, MPV 9.5, Sodium 138, Potassium 4.1, Chloride 103, Carbon Dioxide 30.0, Anion Gap 5, BUN 15, Creatinine 0.79, Estim Creat Clear Calc 102.56, Est GFR (MDRD) Af Amer 95, Est GFR (MDRD) Non-Af 78, BUN/Creatinine Ratio 18.9, G lucose 333 H, Calcium 9.7 10/29/24 11:40: POC Glucose 318 H 10/29/24 16:13: POC Glucose 268 H 10/29/24 20:59: POC Glucose 259 H 10/30/24 06:19: POC Glucose 255 H Radiography Diagnostic Testing: Radiology Impression KUB X-Ray 10/29/24 07:45 IMPRESSION: Improving bowel distention. Electronically Signed: Daniel Cesar MD at 8:59 EST , Physical Exam Const alert and no apparent distress Constitutional Narrative: more alert afebrile. up in chair. Assessment & Plan Assessment/Plan (1) Constipation: PLAN: Plan Abdominal distention * with constipation and ileus. Cannot rule out diabetic/narcotic gastroparesis * NGT placed then patient discontinued it. * Had soap suds enema with postive BM * Patient takes lactulose chronically. Told her to continue with that and then to take Dulcolax if she is not having a bowel movement after 2 days. Additionally recommending discontinuing Percocet as she is already taking [place]. Combination is certainly contributing factor to this constipation. Chronic pain. * OARSS reviewed. Past 2 months as follows: * 10/24/24: filled [facility] prescribed #112 hydrocodone/APAP 5/325 * 10/10/24: filled Dr Wolf prescribed #28 oxy/APAP 5/325 * 10/04/24: filled [facility] Ty prescribed #84 pregabalin 150 * 09/30/24: filled [facility] Ty prescribed #60 lorazepam 1mg * 09/20/24: filled Dr. Wolf prescribed #112 hydrocodone/APAP 5/325 * 09/18/24: filled Dr Wolf prescribed #28 oxy/APAP 5/325 * 09/08/24: filled [facility] prescribed #84 pregabalin 150 * 08/28/24: filled Dr. Wolf prescribed #60 lorazepam 1mg * 08/23/24: filled Dr. Wolf prescribed #112 hydrocodone/APAP 5/325 * Ideally, with the ileus and constipation, narcotics should be weaned down. * Patient was somnolent on the . Feels as prior related with polypharmacy. Patient doing much better today. Recommended discontinuing her Percocet as she is already on [place] chronically. If she is having ongoing pain I do recommend that she follow-up with pain management if what she is currently on is not effective. She states that her primary care doctor is weaning down her lorazepam so we will continue with that taper per her PCP. CONNOR: * POA with creatinine of 1.13. Now resolved with IVF * no additional work up at this time. DM2 * poorly controlled with an A1c of 9.1 * continue glargine chronic medical conditions: * Class III obesity: BMI 48 on admit. Complicates hospital course, care and prognosis. * Hypertension: Mildly hypertensive on admission. Continue home nadolol. Holding home lisinopril in setting of CONNOR, restart when able. IV hydralazine as needed ordered as well. * GERD: Continue home PPI. * Overactive bladder: Continue home oxybutynin. * Normocytic anemia: Hemoglobin 11.0 on admit, baseline around 9-10. Suspect some degree of hemoconcentration. Follow-up a.m. CBC. * schizoaffective disorder? Unclear who she follows with for this. At last hospitalization about 1 month ago she did note worsening stress recently with her son needing psychiatric hospitalization. Has apparently been on same medication regimen with no changes for a long time. Continue home medications. * Chronic respiratory failure: Continue with 3 L nasal cannula. DVT prophylaxis: Lovenox twice daily CODE STATUS: Full code, verified Expected disposition: To home.
[2024-10-30] MEDS: Budesonide Respules 0.5 MG/2 ML AMPUL.NEB. INHALATION (07:48)
[2024-10-30] MEDS: LORazepam 0.5 MG Tablet PO (09:23)
[2024-10-30] MEDS: Nadolol 40 MG Tablet 80 MG PO (09:23)
[2024-10-30] MEDS: buPROPion (XL) 150 MG TABLET.XL 450 MG PO (09:24)
[2024-10-30] MEDS: Acyclovir 200 MG Capsule 400 MG PO (09:24)
[2024-10-30] MEDS: Loratadine 10 MG Tablet PO (09:24)
[2024-10-30] MEDS: Escitalopram Oxalate 20 MG Tablet PO (09:24)
[2024-10-30] MEDS: Tolterodine Tartrate 4 MG CAP.SA PO (09:24)
[2024-10-30] MEDS: Colchicine 0.6 MG TABLET PO (09:25)
[2024-10-30] MEDS: Pantoprazole Sodium 40 MG Tablet PO (09:25)
[2024-10-30] MEDS: Primidone 250 MG Tablet PO (09:25)
[2024-10-30] MEDS: Enoxaparin 40 MG/0.4 ML Syringe SC (09:25)
--- NOTE | 2024-10-30 10:08 | DS.PCM_ITS ---
Providers Date of Admission: 10/28/24 Primary Care Physician: Dr. Cristal Wolf MD Reason For Visit: SEVERE CONSTIPATION, CONNOR, HYPERGLYCEMIA Diagnosis Discharge Diagnosis (1) Constipation: Status: Inactive Code(s): K59.00 - Constipation, unspecified Plan Abdominal distention * with constipation and ileus. Cannot rule out diabetic/narcotic gastroparesis * NGT placed then patient discontinued it. * Had soap suds enema with postive BM * Patient takes lactulose chronically. Told her to continue with that and then to take Dulcolax if she is not having a bowel movement after 2 days. Additionally recommending discontinuing Percocet as she is already taking Forney. Combination is certainly contributing factor to this constipation. Chronic pain. * OARSS reviewed. Past 2 months as follows: * 10/24/24: filled [facility] prescribed #112 hydrocodone/APAP 5/325 * 10/10/24: filled Dr Wolf prescribed #28 oxy/APAP 5/325 * 10/04/24: filled [facility] prescribed #84 pregabalin 150 * 09/30/24: filled [facility] prescribed #60 lorazepam 1mg * 09/20/24: filled Dr. Wolf prescribed #112 hydrocodone/APAP 5/325 * 09/18/24: filled Dr Wolf prescribed #28 oxy/APAP 5/325 * 09/08/24: filled [facility] prescribed #84 pregabalin 150 * 08/28/24: filled Dr. Wolf prescribed #60 lorazepam 1mg * 08/23/24: filled Dr. Wolf prescribed #112 hydrocodone/APAP 5/325 * Ideally, with the ileus and constipation, narcotics should be weaned down. * Patient was somnolent on the . Feels as prior related with polypharmacy. Patient doing much better today. Recommended discontinuing her Percocet as she is already on Forney chronically. If she is having ongoing pain I do recommend that she follow-up with pain management if what she is currently on is not effective. She states that her primary care doctor is weaning down her lorazepam so we will continue with that taper per her PCP. CONNOR: * POA with creatinine of 1.13. Now resolved with IVF * no additional work up at this time. DM2 * poorly controlled with an A1c of 9.1 * continue glargine chronic medical conditions: * Class III obesity: BMI 48 on admit. Complicates hospital course, care and prognosis. * Hypertension: Mildly hypertensive on admission. Continue home nadolol. Holding home lisinopril in setting of CONNOR, restart when able. IV hydralazine as needed ordered as well. * GERD: Continue home PPI. * Overactive bladder: Continue home oxybutynin. * Normocytic anemia: Hemoglobin 11.0 on admit, baseline around 9-10. Suspect some degree of hemoconcentration. Follow-up a.m. CBC. * schizoaffective disorder? Unclear who she follows with for this. At last hospitalization about 1 month ago she did note worsening stress recently with her son needing psychiatric hospitalization. Has apparently been on same medication regimen with no changes for a long time. Continue home medications. * Chronic respiratory failure: Continue with 3 L nasal cannula. DVT prophylaxis: Lovenox twice daily CODE STATUS: Full code, verified Expected disposition: To home. Medications at Discharge Home Medications bupropion HCl 300 mg 24 hr tablet, extended release 450 mg PO DAILY mental health 03/05/17 albuterol sulfate 90 mcg/actuation aerosol inhaler 2 puff inhalation Q4H PRN Sob &/Or Wheezing 05/29/18 glimepiride 2 mg tablet 4 mg PO BID diabetes 09/20/18 dicyclomine 10 mg capsule 20 mg (2 x 10 mg) PO TIDAC #20 caps 07/28/19 escitalopram oxalate 10 mg tablet 20 mg PO DAILY mental health 08/04/19 fluticasone propionate 50 mcg/actuation nasal spray,suspension 2 spray NASAL DAILY allergies 08/04/19 tizanidine 4 mg capsule 4 mg PO BID PRN Muscle Spasm 07/15/20 aspirin 81 mg chewable tablet 81 mg PO DAILY@0800 07/17/20 nadolol 80 mg tablet 80 mg PO BID high blood pressure 07/08/21 buspirone 10 mg tablet 20 mg PO TID mood 01/25/22 cetirizine 10 mg tablet (Zyrtec) 10 mg PO DAILY allergies 01/25/22 colchicine 0.6 mg tablet 0.6 mg PO DAILY . 01/25/22 guaifenesin 600 mg tablet, extended release 12 hr (Mucinex) 1,200 mg PO BID PRN Cough 01/25/22 hydroxyzine pamoate 25 mg capsule (Vistaril) 25 - 75 mg PO BID PRN Itching 01/25/22 hyoscyamine sulfate 0.125 mg tablet (Levsin) 0.125 mg PO Q6H PRN IBS 01/25/22 ketorolac 10 mg tablet 10 mg PO Q6H PRN SEVERE HEADACHE 01/25/22 lidocaine 4 % topical cream 1 applic topical TID PRN Pain 01/25/22 lorazepam 0.5 mg tablet (Ativan) 0.5 - 1 mg PO BID PRN Panic Attack(S) 01/25/22 primidone 250 mg tablet 250 mg PO BID seizures 01/25/22 triamcinolone acetonide 0.1 % topical cream 1 applic topical TID PRN Rash 01/25/22 fluticasone 500 mcg-salmeterol 50 mcg/dose blistr powdr for inhalation 1 inh inhalation BID . 05/02/22 insulin glargine 100 unit/mL (3 mL) subcutaneous pen (Lantus Solostar U-100 Insulin) 43 unit subcut QHS 05/02/22 omeprazole 40 mg capsule,delayed release 40 mg PO DAILY gerd 05/02/22 oxybutynin chloride 10 mg tablet,extended release 24 hr 20 mg PO DAILY bladder 05/02/22 paliperidone palmitate 117 mg/0.75 mL intramuscular syringe (Invega Sustenna) 117 mg IM Q21D 05/02/22 ergocalciferol (vitamin D2) 1,250 mcg (50,000 unit) capsule (Vitamin D2) 50,000 unit PO MOTH 08/10/22 insulin lispro 100 unit/mL subcutaneous pen See Rx Instructions subcut QAC DM 08/10/22 lactulose 10 gram/15 mL oral solution 30 ml PO BID PRN Constipation 08/10/22 pregabalin 150 mg capsule 150 mg PO TID pain 08/10/22 valacyclovir 500 mg tablet 500 mg PO DAILY 08/10/22 promethazine 25 mg tablet 25 mg PO Q6H PRN nausea and vomiting 7 days #28 tabs 05/10/23 hydrocodone-acetaminophen 5-325mg 5mg-325mg 1 tab PO Q6H PRN pain 08/28/23 acidophilus 25 million cell-pectin, citrus 100 mg tablet 1 tab PO DAILY 10/03/24 lisinopril 10 mg tablet 10 mg PO BID blood pressure 10/03/24 naratriptan 2.5 mg tablet See Rx Instructions PO .COMPLEX headache 10/03/24 ondansetron 4 mg disintegrating tablet 8 mg PO Q8H PRN Nausea 10/03/24 trazodone 150 mg tablet 150 mg PO QHS sleep 10/03/24 bisacodyl 5 mg tablet,delayed release (Gentle Laxative (bisacodyl)) 5 mg PO QHS PRN constipation 5 days #10 tabs 10/30/24 Hospital Course Operations None Procedures None Summary of Care Provided Minutes Spent on Discharge: 35 Hospital Course: Patient mated with abdominal distention and pain. Patient was found to be constipated and also had what appeared to be an ileus. Patient had a soapsuds enema and did have improvement of her bowel function. Patient's course was complicated due to profound somnolence. Patient taking numerous medications including Forney, Percocet, Lyrica and lorazepam. [place] the combination was contributing to his somnolence. Certainly the narcotics are contributing to constipation. Patient bowel status is much improved today. I did express concern about polypharmacy for the patient and did recommend seeking evaluation to see if she has drug misuse disorder. Patient is currently undergoing a taper, according to the patient, for her lorazepam. I strongly advised patient not to take Percocet any further and continue with her Forney. But if she is having severe pain then she may benefit from going to a pain management physician. Will defer that conversation to the patient and her PCP. Weight / BMI Weight Weight: 131.7 kg Body Mass Index (BMI) 48.3 ABG / Lab / Microbiology Data 10/29/24 06:40 10/29/24 06:40 Laboratory: Laboratory Results - last 24 hr 10/29/24 11:40: POC Glucose 318 H 10/29/24 16:13: POC Glucose 268 H 10/29/24 20:59: POC Glucose 259 H 10/30/24 06:19: POC Glucose 255 H D/C Instructions Discharge Diet: 2000 Calorie Control Diet DC O2, CPAP, BIPAP Needs Additional Home O2 Discharge instructions: Yes Type of respiratory needs?: Oxygen Oxygen frequency: Continuous Continuous oxygen liters per minute: 3 DC home with Oxygen: Yes Home O2 MD Review: I have reviewed the oxygen testing, and the patient qualifies for home oxygen equipment and portability. The patient is mobile in the home and the community. Meaningful Use Info Meaningful Use Meaningful Use Diagnoses (Choose all that apply): None applicable Ischemic Stroke Statin Dosing Therapy Reference: STATIN DOSE THERAPY REFERENCE: * Patients > 75 years receive moderate or high dose statin therapy. * Patients 75 years or YOUNGER should receive HIGH intensity statin dose unless contraindicated. You will be required to document reason for non-treatment if statin daily dose does not meet guidelines. HIGH DOSE STATIN THERAPY DAILY Atorvastatin > than or = to 40 mg Rosuvastatin > than or = to 20 mg Amlodipine + Atorvastatin > than or = to 2.5/40 mg Ezetimibe + Simvastatin 10/80 mg Simvastatin 80mg Discharge Plan Admission Admit Date/Time: 10/28/24 16:09 Primary Reason for Your Visit: constipation Attending Provider: Marek Echevarria Primary Care Provider: Cristal Wolf Consulting Providers: Zane Munson Instructions Additional Instructions / Restrictions: Stop taking Percocet (acetaminophen/oxycodone. Talk with your primary care doctor about seeing pain management if your pain is that refractory.) Additionally recommend taking the lactulose as you have been over the past several months but also take a Dulcolax tablet if you have not had a bowel movement in 2 days. Discharge Orders/Prescriptions Prescriptions: New bisacodyl [Gentle Laxative (bisacodyl)] 5 mg tablet,delayed release (DR/EC) 5 mg PO QHS PRN (Reason: constipation) 5 Days Qty: 10 0RF Continued omeprazole 40 mg capsule,delayed release(DR/EC) 40 mg PO DAILY oxybutynin chloride 10 mg tablet extended release 24hr 20 mg PO DAILY Invega Sustenna 117 mg/0.75 mL syringe 117 mg IM Q21D pregabalin 150 mg capsule 150 mg PO TID valacyclovir 500 mg tablet 500 mg PO DAILY ergocalciferol (vitamin D2) [Vitamin D2] 1,250 mcg (50,000 unit) capsule 50,000 unit PO MOTH insulin lispro 100 unit/mL insulin pen See Rx Instructions subcut QAC Rx Instructions: 4 units + sliding scale subcutaneously before meals; bupropion HCl 300 MG tablet extended release 24 hr 450 mg PO DAILY Patient Comments: DEPRESSION albuterol sulfate 1 INHALER inhaler 2 puff INHALATION Q4H PRN (Reason: Sob &/Or Wheezing) dicyclomine 10 MG capsule 20 mg PO TIDAC Qty: 20 0RF fluticasone propionate 1 SPRAY spray,suspension 2 spray NASAL DAILY escitalopram oxalate 10 MG tablet 20 mg PO DAILY tizanidine 4 MG capsule 4 mg PO BID PRN (Reason: Muscle Spasm) aspirin 81 MG tablet,chewable 81 mg PO DAILY@0800 0RF Lantus Solostar U-100 Insulin 100 unit/mL (3 mL) insulin pen 43 unit SUBCUT QHS cetirizine [Zyrtec] 10 mg Tablet 10 mg PO DAILY lidocaine 4 % Cream 1 applic TOPICAL TID PRN (Reason: Pain) triamcinolone acetonide 0.1 % Cream 1 applic TOPICAL TID PRN (Reason: Rash) ketorolac 10 mg Tablet 10 mg PO Q6H PRN (Reason: SEVERE HEADACHE) primidone 250 mg Tablet 250 mg PO BID lorazepam [Ativan] 0.5 mg Tablet 0.5 - 1 mg PO BID PRN (Reason: Panic Attack(S)) hyoscyamine sulfate [Levsin] 0.125 mg Tablet 0.125 mg PO Q6H PRN (Reason: IBS) buspirone 10 mg Tablet 20 mg PO TID colchicine 0.6 mg Tablet 0.6 mg PO DAILY hydroxyzine pamoate [Vistaril] 25 mg Capsule 25 - 75 mg PO BID PRN (Reason: Itching) guaifenesin [Mucinex] 600 mg Tablet Extended Release 12hr 1,200 mg PO BID PRN (Reason: Cough) fluticasone propion-salmeterol 500-50 mcg/dose blister with device 1 inh INHALATION BID lactulose 10 gram/15 mL solution 30 ml PO BID PRN (Reason: Constipation) promethazine 25 mg tablet 25 mg PO Q6H PRN (Reason: nausea and vomiting) 7 Days Qty: 28 0RF hydrocodone-acetaminophen 5-325 mg tablet 1 tab PO Q6H PRN (Reason: pain) Patient Comments: ALTERNATING WITH PERCOCET acidophilus-pectin, citrus 25 million cell -100 mg tablet 1 tab PO DAILY naratriptan 2.5 mg tablet See Rx Instructions .ROUTE .COMPLEX Rx Instructions: take 1 tab at onset of headache; if no relief may repeat 1 tab after at least 4 hrs; max = 2 tabs/24 hrs ondansetron 4 MG tablet 8 mg PO Q8H PRN (Reason: Nausea) lisinopril 10 mg tablet 10 mg PO BID trazodone 150 mg tablet 150 mg PO QHS glimepiride 2 mg tablet 4 mg PO BID Patient Comments: BLOOD SUGAR nadolol 80 mg tablet 80 mg PO BID Patient Comments: BLOOD PRESSURE Discontinued oxycodone-acetaminophen 5-325 mg tablet 1 tab PO Q6H PRN (Reason: pain) Patient Comments: ALTERNATING WITH [facility] Referrals / Follow Up: Cristal Wolf MD [Primary Care Provider] - Within 2 Weeks Disposition Disposition (needs filled in before D/C Order can be placed): Home, Self Care Charges/Coding Visit Charges Inpatient E&M: 41397 Disch Hosp >30min
[2024-10-30] MEDS: Aspirin 81 MG TAB.CHEW PO (10:22)
--- NOTE | 2024-10-30 11:25 | CASEMGMT ---
Addendum entered by Lissette Campbell 10/30/24 16:37: [facility] had accepted pt and now states that they only have SN services. Requested DC buyer assistant call [facility] who is the only agency who has not responded and see if able to accept. If they are not, will plan on [facility] for SN services only. Addendum entered by Lissette Campbell 10/30/24 15:26: CC is asking for PT notes, uploaded via [employer] at this time. [facility], [facility], [facility], [facility], [facility], [facility], [facility] and [facility] have declined pt for services. Addendum entered by Lissette Campbell 10/30/24 14:54: LUIS MIGUEL PARRA into pt room, pt is aware that the three agencies she chose have declined. Pt is agreeable to all agencies being sent her referral and to call her at home to make aware of who accepts. Pt states she wants to go home and she does not want to wait for this to be set up. Pt states that if no one accepts her then she will manage without. DC buyer assistant asked to send referral to all agencies. Original Note: LUIS MIGUEL PARRA into pt room, pt is aware that [facility] who was providing her SN, PT and OT is not willing to take her back for care. Pt states she does feel she needs this care. LUIS MIGUEL PARRA made aware that this RN AIDA will provide her with a list of other options for pt to choose from. Requested dc buyer assistant to print list.
--- NOTE | 2024-10-30 11:49 | CASEMGMT ---
Discharge Planning A list of HH providers including quality and resource use data and consistent with the patient's preferred geographic region, medical needs, and insurance network was created in [facility] [facility].? This list was provided to the RN AIDA. Nat Gtz, Discharge Planning Asst.
[2024-10-30] MEDS: Ondansetron 4 MG/2 ML Vial IV (11:51)
--- NOTE | 2024-10-30 11:51 | CASEMGMT ---
Social Work- SW spoke with [facility] Richa PARRA to collaborate on d/c plans. Richa reports that there have been no issues expressed from [facility] to her; feels that pt has been doing well. Richa reports that pt has MOW, medical alert, 36 hrs/week of SN/PT/OT. SW notified RNCM. SW to fax discharge instructions when available. MADAN Key
[2024-10-30] MEDS: 0.9% Saline Lock 10 ML Syringe IV (11:52)
[2024-10-30 12:25] LABS: Bedside Glucose 264 mg/dL (74-106)
--- NOTE | 2024-10-30 14:17 | CASEMGMT ---
Addendum entered by Nat Gtz 10/30/24 14:33: [facility] declined d/t not accepting [facility] pts. Referral sent to [facility]. Nat Gtz DC Planning Asst. Original Note: Discharge Planning Patient has chosen [facility], and [facility]. Referral sent to [facility] who declined. Referral then sent to [facility]. Awaiting response. Nat Gtz DC Planning Asst.
--- NOTE | 2024-10-30 14:50 | CASEMGMT ---
Addendum entered by Nat Gtz 10/30/24 15:43: [facility], [facility], [facility], [facility], [facility], [facility], [facility], [facility], and [facility] declined. [facility] accepted. Nat Gtz DC Planning Asst. Original Note: Discharge Planning Referral sent to [facility], [facility], [facility], [facility], [facility], [facility], [facility], [facility], [facility], and [facility]. Nat Gtz DC Planning Asst.
--- NOTE | 2024-10-30 15:57 | CASEMGMT ---
Discharge Planning Pt advised that [facility] will provide services. Nat Gtz DC Planning Asst.
--- NOTE | 2024-10-31 09:58 | CASEMGMT ---
Addendum entered by Lissette Campbell 10/31/24 10:22: Received notification from [facility] that they cannot service pt. Original Note: Received notification from dc research assistant professor that [facility] is officially closed. [facility] referral [facility], will await to see if able to accept pt for services.
--- NOTE | 2024-10-31 11:10 | CASEMGMT ---
Addendum entered by Nat Gtz 10/31/24 11:35: Pt updated. Nat Gtz DC Planning Asst. Original Note: Discharge Planning Per [facility] will see pt for SN only. RN CM updated. Nat Gtz DC Planning Asst.
--- NOTE | 2024-10-31 12:36 | CASEMGMT ---
Social Work- RNCM secured HHC through [facility]. SHIVA faxed discharge documentation with name of HHC to [facility], as well as called [facility], to verbally report information as well. SHIVA left a voicemail. MADAN Key
== END 2024-10-30 15:13 | disposition home or self-care (01) | DRG 254 ==
LOC: ED 16:18 → MS3 17:14
PROVIDERS: Admitting Provider Hospitalist; Emergency Provider Emergency Medicine; PCP Internal Medicine
DX: K59.00 Constipation, unspecified (principal); F25.9 Schizoaffective disorder, unspecified; J96.11 Chronic respiratory failure with hypoxia; K56.7 Ileus, unspecified; N17.9 Acute kidney failure, unspecified; E11.40 Type 2 diabetes mellitus with diabetic neuropathy, unspecified; J44.9 Chronic obstructive pulmonary disease, unspecified; Z68.42 Body mass index [BMI] 45.0-49.9, adult; D64.9 Anemia, unspecified; I10 Essential (primary) hypertension; E11.65 Type 2 diabetes mellitus with hyperglycemia; F31.9 Bipolar disorder, unspecified; K21.9 Gastro-esophageal reflux disease without esophagitis; Z79.4 Long term (current) use of insulin; G43.909 Migraine, unspecified, not intractable, without status migrainosus; E11.51 Type 2 diabetes mellitus with diabetic peripheral angiopathy without gangrene; G47.33 Obstructive sleep apnea (adult) (pediatric); Z79.51 Long term (current) use of inhaled steroids; G89.29 Other chronic pain; Z90.710 Acquired absence of both cervix and uterus; E66.813 Obesity, class 3; F43.10 Post-traumatic stress disorder, unspecified; N32.81 Overactive bladder; Z74.09 Other reduced mobility; R53.81 Other malaise; K63.89 Other specified diseases of intestine; R55 Syncope and collapse
CPT/HCPCS: 36415; 71045; 74018; 74177; 80048; 80053; 82140; 82962; 83690; 85025; 85027; 93005; 94640; 94668; 97162; 97166; 97530; 97535; 97802; 99285; J7030; Q9967; A4216; J2405

== ENCOUNTER 2025-02-24 04:03 | Inpatient (IN) | payer MEDICAID, SELFPAY ==
[2025-02-24] VITALS (16 sets, daily range): BP systolic 96–168; BP diastolic 61–88; PULSE 52–76; RESP 14–29; TEMP 36.4–37.1; O2SAT 94–99; BMI 52.0; BMI 51.4
--- NOTE | 2025-02-24 04:08 | RAD_ITS ---
PROCEDURE: CHEST 1 VIEW (PORTABLE) 02/24/2025 REASON FOR EXAM: SOB TECHNIQUE: Frontal view of the chest. COMPARISON: Not provided at the time of interpretation. FINDINGS: Elevation of the right hemidiaphragm. Bilateral basilar atelectatic pulmonary changes. Mild central pulmonary venous congestion. Mild degenerative joint disease. The cardiac and mediastinal contours are normal. RAD/Chest 1 View (Portable) IMPRESSION: Elevation of the right hemidiaphragm. Bilateral basilar atelectatic pulmonary changes, more prominent on the right si de. Mild central pulmonary venous congestion. [facility] [id number]
--- NOTE | 2025-02-24 04:08 | EKG12_ITS ---
Test Reason : DYSRHYTHMIA Blood Pressure : */* mmHG Vent. Rate : 61 BPM Atrial Rate : 61 BPM P-R Int : 170 ms QRS Dur : 102 ms QT Int : 412 ms P-R-T Axes : 41 14 -12 degrees QTcB Int : 414 ms Normal sinus rhythm Incomplete right bundle branch block Nonspecific T wave abnormality Abnormal ECG Confirmed by GINGER RIZO, VENU ([id number]), editor house organ KARMEN ORTIZ ([id number]) on 02/25/2025 8:09:17 AM Referred By: Confirmed By: VENU MILES MD
--- NOTE | 2025-02-24 04:10 | ED.VIS.DYS ---
HPI History of Present Illness Chief Complaint: Shortness of Breath Informant: patient and EMS Narrative Narrative: Patient presents at 4 AM by EMS for dyspnea. He states this is been going on for about 6 days, and progressively worsening, and this is her first visit to the ER for it in the past 6 days and when asked why now, she states that she felt like she was drowning and is orthopneic. She admits to worsening edema in her legs than usual although she also admits that she has chronic edema. She denies any chest pain. She denies any known fevers or chills but thinks she felt like maybe she had a low-grade fever earlier this past day. She has had a cough that is productive of dark sputum no blood. She is on home oxygen she thinks for COPD. She has a history of heart problems but cannot tell me any details about it. EMS states they were at her residence several x 2 days ago for lift assistance and she was not objectively dyspneic or complaining of dyspnea at that time. [facility] Medical History Bipolar disorder Non-smoker CPAP (continuous positive airway pressure) dependence On home oxygen therapy Myocardial infarct Hypertension Seizures History of ESBL E. coli infection Schizophrenia Diabetes PTSD (post-traumatic stress disorder) Depression Schizo affective schizophrenia Other specified peripheral vascular diseases Essential hypertension Chest pain Diabetes mellitus type 2, uncontrolled, with complications Back pain Asthma Knee pain Migraines Fatigue Hemorrhoids COPD (chronic obstructive pulmonary disease) Arthritis Pain syndrome, chronic Bipolar disorder Obstructive sleep apnea Stasis dermatitis of both legs Venous insufficiency of both lower extremities Super obese Open wound of left lower extremity GERD (gastroesophageal reflux disease) Benign hypertension ADHD (attention deficit hyperactivity disorder) Home Medications ?Medication ?Instructions ?Recorded ?Last Taken ?Type bupropion HCl 300 mg 24 hr tablet, 450 mg PO DAILY mental health 03/05/17 10/03/24 History extended release albuterol sulfate 90 mcg/actuation 2 puff inhalation Q4H PRN Sob &/Or 05/29/18 07/07/18 History aerosol inhaler Wheezing glimepiride 2 mg tablet 4 mg PO BID diabetes 09/20/18 10/03/24 History dicyclomine 10 mg capsule 20 mg (2 x 10 mg) PO TIDAC #20 caps 07/28/19 10/03/24 Rx escitalopram oxalate 10 mg tablet 20 mg PO DAILY mental health 08/04/19 10/03/24 History fluticasone propionate 50 2 spray NASAL DAILY allergies 08/04/19 10/03/24 History mcg/actuation nasal spray,suspension tizanidine 4 mg capsule 4 mg PO BID PRN Muscle Spasm 07/15/20 Unknown History aspirin 81 mg chewable tablet 81 mg PO DAILY@0800 07/17/20 10/03/24 Rx nadolol 80 mg tablet 80 mg PO BID high blood pressure 07/08/21 10/03/24 History buspirone 10 mg tablet 20 mg PO TID mood 01/25/22 10/03/24 History cetirizine 10 mg tablet (Zyrtec) 10 mg PO DAILY allergies 01/25/22 10/03/24 History colchicine 0.6 mg tablet 0.6 mg PO DAILY . 01/25/22 10/03/24 History guaifenesin 600 mg tablet, 1,200 mg PO BID PRN Cough 01/25/22 Unknown History extended release 12 hr (Mucinex) hydroxyzine pamoate 25 mg capsule 25 - 75 mg PO BID PRN Itching 01/25/22 Unknown History (Vistaril) hyoscyamine sulfate 0.125 mg 0.125 mg PO Q6H PRN IBS 01/25/22 Unknown History tablet (Levsin) ketorolac 10 mg tablet 10 mg PO Q6H PRN SEVERE HEADACHE 01/25/22 Unknown History lidocaine 4 % topical cream 1 applic topical TID PRN Pain 01/25/22 Unknown History lorazepam 0.5 mg tablet (Ativan) 0.5 - 1 mg PO BID PRN Panic 01/25/22 Unknown History Attack(S) primidone 250 mg tablet 250 mg PO BID seizures 01/25/22 10/03/24 History triamcinolone acetonide 0.1 % 1 applic topical TID PRN Rash 01/25/22 Unknown History topical cream fluticasone 500 mcg-salmeterol 50 1 inh inhalation BID . 05/02/22 10/03/24 History mcg/dose blistr powdr for inhalation insulin glargine 100 unit/mL (3 43 unit subcut QHS 05/02/22 10/02/24 History mL) subcutaneous pen (Lantus Solostar U-100 Insulin) omeprazole 40 mg capsule,delayed 40 mg PO DAILY gerd 05/02/22 10/03/24 History release oxybutynin chloride 10 mg 20 mg PO DAILY bladder 05/02/22 10/03/24 History tablet,extended release 24 hr paliperidone palmitate 117 mg/0.75 117 mg IM Q21D 05/02/22 09/25/24 History mL intramuscular syringe (Invega Sustenna) ergocalciferol (vitamin D2) 1,250 50,000 unit PO MOTH 08/10/22 10/03/24 History mcg (50,000 unit) capsule (Vitamin D2) insulin lispro 100 unit/mL See Rx Instructions subcut QAC DM 08/10/22 10/03/24 History subcutaneous pen lactulose 10 gram/15 mL oral 30 ml PO BID PRN Constipation 08/10/22 Unknown History solution pregabalin 150 mg capsule 150 mg PO TID pain 08/10/22 10/03/24 History valacyclovir 500 mg tablet 500 mg PO DAILY 08/10/22 10/03/24 History promethazine 25 mg tablet 25 mg PO Q6H PRN nausea and 05/10/23 Unknown Rx vomiting 7 days #28 tabs hydrocodone-acetaminophen 5-325mg 1 tab PO Q6H PRN pain 08/28/23 Unknown History 5mg-325mg acidophilus 25 million 1 tab PO DAILY 10/03/24 10/03/24 History cell-pectin, citrus 100 mg tablet lisinopril 10 mg tablet 10 mg PO BID blood pressure 10/03/24 Unknown History naratriptan 2.5 mg tablet See Rx Instructions PO .COMPLEX 10/03/24 Unknown History headache ondansetron 4 mg disintegrating 8 mg PO Q8H PRN Nausea 10/03/24 Unknown History tablet trazodone 150 mg tablet 150 mg PO QHS sleep 10/03/24 10/02/24 History bisacodyl 5 mg tablet,delayed 5 mg PO QHS PRN constipation 5 10/30/24 Unknown Rx release (Gentle Laxative days #10 tabs (bisacodyl)) Allergy/AdvReac Type Severity Reaction Status Date / Time meloxicam Allergy Severe Anaphylaxis Verified 02/24/25 04:04 vancomycin Allergy Severe BURNING Verified 02/24/25 04:04 RED RASH ON LEGGS amlodipine (From [facility]) Allergy Swelling Verified 02/24/25 04:04 cefazolin sodium (From [facility]) Allergy Hives Verified 02/24/25 04:04 fexofenadine (From [facility]ia) Allergy Shortness Verified 02/24/25 04:04 of breath nitrofurantoin (From Allergy Hives Verified 02/24/25 04:04 Macrobid) peanut Allergy Shortness Verified 02/24/25 04:04 of breath Penicillins Allergy Hives Verified 02/24/25 04:04 sumatriptan (From Imitrex) Allergy Shortness Verified 02/24/25 04:04 of breath adhesive AdvReac BURNING Verified 02/24/25 04:04 amitriptyline (From Elavil) AdvReac Other Verified 02/24/25 04:04 clindamycin AdvReac Diarrhea Verified 02/24/25 04:04 ziprasidone (From Geodon) AdvReac NEEDS Verified 02/24/25 04:04 FOLLOW-UP Family History Father CVA (cerebral vascular accident) Heart disease Mother Heart disease Surgical History (Updated 11/07/24 @ 00:01 by Jesus Alberto Dexter) History of elbow surgery (~06/2020) History of arthroscopic knee surgery History of left heart catheterization (07/16/20) Kidney stone H/O hernia repair Hx of hysterectomy Hx of section Social History household members: spouse housing: house Smoking Status: Never smoker alcohol intake: current alcohol intake frequency: holidays/special occasions only Alcohol type: wine substance use type: does not use caffeine: Yes (occasionally) ROS ROS ED Constitutional Constitutional ED: Reports fatigue, fever(s) and subjective; Denies chills Eyes Eyes: Denies change in vision or diplopia ENT ENT ED: Denies rhinorrhea or sore throat Cardiovascular Cardiovascular: Reports orthopnea and pedal edema; Denies chest pain or palpitations Respiratory/Chest Respiratory/Chest: Reports cough, dyspnea, dyspnea on exertion, orthopnea and sputum Gastrointestinal Gastrointestinal: Denies abdominal pain, diarrhea, nausea or vomiting Genitourinary Genitourinary ED: Denies dysuria, hematuria or urinary frequency Musculoskeletal Musculoskeletal: Denies back pain or neck pain Integumentary Denies abscess or rash Neurologic Neurologic: Denies headache(s), paresthesias or weakness EXAM Physical Exam Const Vital Signs: 02/24/25 04:04 02/24/25 04:07 02/24/25 04:12 Temperature 98.4 F 98.4 F Temperature Source Oral Oral Pulse Rate 66 64 Respiratory Rate 21 H 17 Respiratory Effort Respiratory Depth Respiratory Pattern Blood Pressure 96/61 96/61 Blood Pressure Mean 72 72 Pulse Ox 95 96 Oxygen Delivery Method Nasal Cannula Nasal Cannula Nasal Cannula Oxygen Flow Rate (L/min) 3 3 02/24/25 04:12 02/24/25 04:12 02/24/25 05:09 Temperature Temperature Source Pulse Rate 68 55 L Respiratory Rate 18 19 H Respiratory Effort Normal Respiratory Depth Normal Respiratory Pattern Normal Normal Blood Pressure Blood Pressure Mean Pulse Ox 98 Oxygen Delivery Method Nasal Cannula Oxygen Flow Rate (L/min) 02/24/25 05:09 Temperature 98 F Temperature Source Temporal Pulse Rate 55 L Respiratory Rate 19 H Respiratory Effort Respiratory Depth Respiratory Pattern Blood Pressure 97/68 Blood Pressure Mean 77 Pulse Ox 98 Oxygen Delivery Method Oxygen Flow Rate (L/min) Positive well nourished, well developed and obese General Appearance ED: well developed and NAD Nutritional Appearance: obese HEENT Reports moist mucous membranes normocephalic and atraumatic Eyes PERRL and EOMs intact bilaterally Neck full ROM, no lymphadenopathy, supple, no meningeal signs and no JVD Resp normal respiratory effort and clear to auscultation bilaterally Resp Narrative: Diminished breath sounds throughout, symmetrically. Trachea midline. No dysphonia or hoarseness or stridor. Cardio regular rate and regular rhythm Cardio Narrative: Faint heart sounds GI non-tender and non-distended Auscultation: normoactive bowel sounds Palpation: soft Back/Spine no CVA tenderness General Back: other FROM Extremity normal to inspection Extremity Narrative: Changes of chronic stasis dermatitis in both lower legs. No signs of acute cellulitis or tenderness. No palpable cords. Multiple varicosities. General Extremety ED: Yes edema; Negative for pulses abnormal or tenderness General Extremity: edema bilateral lower extremity Details: mild; Negative for pulses abnormal Neuro oriented x3, CN's II-XII intact bilaterally and no sensory deficits noted Sensorium / Orientation: awake and alert Motor Exam: strength 5/5 throughout Psych Psych Narrative: Flat affect Skin no rashes or lesions noted and no wounds MDM MDM MDM Narrative Medical decision making narrative: Patient was given a duo nebulizer treatment, considering COPD-related etiologies, but also the possibility of congestive heart failure. Looking at an old echocardiogram from 2020, she appeared to have a normal EF but it was technically challenging study that appeared to show diastolic dysfunction. She does not have JVD but she does have worsening pedal edema right now so proBNP also added to her workup. Her blood counts show that she is anemic compared with prior, she has had no symptoms of GI bleeding recently and she is not anticoagulated according to her extensive list of medications in the EMR. She was not able to tell me her medications. On reexamination after the duo nebulizer treatment, she is lethargic. She opens her eyes to voice and looks at me, but after repeating the question 3-4 times, she still cannot answer. She seems to be breathing normally. I had respiratory do an ABG to evaluate for acute hypercapnia causing this, also in the differential is the hour of the day which is 5 AM, as well as the patient's multiple medications many of which she takes at night and some of them are sedating. Her ABG shows acute respiratory acidosis with hypercapnia. She has a high bicarb, suggesting that she has quite a bit of chronic CO2 retention, but she is acute on top of that with a pH of 7.3 and a pCO2 of 86.6. Her oxygenation is good. Her cardiac workup is unremarkable, and her swab is positive for RSV, given all of this is likely pulmonary etiology. Solu-Medrol given, BiPAP started, plan for admission to PCU. Lab Data Attestation: I reviewed the patient's lab results. Labs: Laboratory Results - last 24 hr 02/24/25 04:10 WBC 5.0 RBC 3.05 L Hgb 7.4 L Hct 25.7 L MCV 84.3 MCH 24.3 L MCHC 28.8 L RDW Std Deviation 51.1 H RDW Coeff of Jocy 16.5 H Plt Count 155 MPV 9.7 Immature Gran % (Auto) 0.600 Neut % (Auto) 75.8 H Lymph % (Auto) 13.1 L Levy % (Auto) 10.5 H Eos % (Auto) 0.0 Baso % (Auto) 0.0 Absolute Neuts (auto) 3.8 Absolute Lymphs (auto) 0.65 L Nucleated RBC % 0 Sodium 135 Potassium 4.8 Chloride 95 L Carbon Dioxide 31.2 Anion Gap 9 BUN 17 Creatinine 0.72 Estim Creat Clear Calc 117.88 Est GFR (MDRD) Non-Af 96 BUN/Creatinine Ratio 23.4 H Glucose 422 H Calcium 8.5 Troponin T High Sens 16 H NT pro BNP II 607 ABG Data ABG results: ABG 02/24/25 05:40 Specimen Type ART Sample Site L Radial pH 7.30 L Bicarbonate Actual 42.6 H Total CO2 45 Base Excess 16 H O2 Saturation 97 O2 % 3.0 ABG pCO2 86.6 H* ABG pO2 112 H Bi Test Positive O2 Delivery Device Cannula Vent Mode Not entered Crit Call To/Read Back Yes Blood Gas Notified Whom Mely Blood Gas Notified Time 05:42:16 Rhythm Strip Rhythm Strip: Sinus Rhythm Rate: 60 Ectopy: None EKG Initial EKG: Attestation: I personally reviewed and interpreted this EKG as follows: Interpretation: Sinus Rhythm, No Acute Injury Pattern and Non-Specific ST Changes (inf) Comments: signs of right heart strain, unchanged; IRBBB Prior EKG tracings: available for review Prior: Unchanged Management Discussion w/another healthcare provider: Hospitalist Discharge Plan Triage Chief Complaint: Shortness of Breath ED Provider: Gurpreet Boone Dx/Rx/DC Orders Clinical Impression: Acute hypercapnic respiratory failure, Edema of both lower extremities, RSV bronchitis, Acute exacerbation of chronic obstructive pulmonary disease (COPD) Prescriptions: No Action omeprazole 40 mg capsule,delayed release(DR/EC) 40 mg PO DAILY oxybutynin chloride 10 mg tablet extended release 24hr 20 mg PO DAILY Invega Sustenna 117 mg/0.75 mL syringe 117 mg IM Q21D pregabalin 150 mg capsule 150 mg PO TID valacyclovir 500 mg tablet 500 mg PO DAILY ergocalciferol (vitamin D2) [Vitamin D2] 1,250 mcg (50,000 unit) capsule 50,000 unit PO MOTH insulin lispro 100 unit/mL insulin pen See Rx Instructions subcut QAC Rx Instructions: 4 units + sliding scale subcutaneously before meals; bupropion HCl 300 MG tablet extended release 24 hr 450 mg PO DAILY Patient Comments: DEPRESSION albuterol sulfate 1 INHALER inhaler 2 puff INHALATION Q4H PRN (Reason: Sob &/Or Wheezing) dicyclomine 10 MG capsule 20 mg PO TIDAC Qty: 20 0RF fluticasone propionate 1 SPRAY spray,suspension 2 spray NASAL DAILY escitalopram oxalate 10 MG tablet 20 mg PO DAILY tizanidine 4 MG capsule 4 mg PO BID PRN (Reason: Muscle Spasm) aspirin 81 MG tablet,chewable 81 mg PO DAILY@0800 0RF Martin Kramerostar U-100 Insulin 100 unit/mL (3 mL) insulin pen 43 unit SUBCUT QHS cetirizine [Zyrtec] 10 mg Tablet 10 mg PO DAILY lidocaine 4 % Cream 1 applic TOPICAL TID PRN (Reason: Pain) triamcinolone acetonide 0.1 % Cream 1 applic TOPICAL TID PRN (Reason: Rash) ketorolac 10 mg Tablet 10 mg PO Q6H PRN (Reason: SEVERE HEADACHE) primidone 250 mg Tablet 250 mg PO BID lorazepam [Ativan] 0.5 mg Tablet 0.5 - 1 mg PO BID PRN (Reason: Panic Attack(S)) hyoscyamine sulfate [Levsin] 0.125 mg Tablet 0.125 mg PO Q6H PRN (Reason: IBS) buspirone 10 mg Tablet 20 mg PO TID colchicine 0.6 mg Tablet 0.6 mg PO DAILY hydroxyzine pamoate [Vistaril] 25 mg Capsule 25 - 75 mg PO BID PRN (Reason: Itching) guaifenesin [Mucinex] 600 mg Tablet Extended Release 12hr 1,200 mg PO BID PRN (Reason: Cough) fluticasone propion-salmeterol 500-50 mcg/dose blister with device 1 inh INHALATION BID lactulose 10 gram/15 mL solution 30 ml PO BID PRN (Reason: Constipation) promethazine 25 mg tablet 25 mg PO Q6H PRN (Reason: nausea and vomiting) 7 Days Qty: 28 0RF hydrocodone-acetaminophen 5-325 mg tablet 1 tab PO Q6H PRN (Reason: pain) Patient Comments: ALTERNATING WITH PERCOCET acidophilus-pectin, citrus 25 million cell -100 mg tablet 1 tab PO DAILY naratriptan 2.5 mg tablet See Rx Instructions .ROUTE .COMPLEX Rx Instructions: take 1 tab at onset of headache; if no relief may repeat 1 tab after at least 4 hrs; max = 2 tabs/24 hrs ondansetron 4 MG tablet 8 mg PO Q8H PRN (Reason: Nausea) lisinopril 10 mg tablet 10 mg PO BID trazodone 150 mg tablet 150 mg PO QHS bisacodyl [Gentle Laxative (bisacodyl)] 5 mg tablet,delayed release (DR/EC) 5 mg PO QHS PRN (Reason: constipation) 5 Days Qty: 10 0RF glimepiride 2 mg tablet 4 mg PO BID Patient Comments: BLOOD SUGAR nadolol 80 mg tablet 80 mg PO BID Patient Comments: BLOOD PRESSURE Primary Care Provider: Cristal Wolf Referrals: Cristal Wolf MD [Primary Care Provider] - Print Language: Barbadian
[2025-02-24] MEDS: Ipratropium/Albuterol Sulfate 3 ML AMPUL.NEB INHALATION ×5 (04:12→23:59)
[2025-02-24 04:36] LABS: Absolute Lymphocyte Count 0.65 X10^3/uL (0.83-4.51); Absolute Neutrophil Count 3.8 X10^3/uL (2.0-7.7); Hematocrit 25.7 % (37-47); Hemoglobin 7.4 g/dL (12.0-15.0); Lymphocyte # 0.65 X10^3/ul (0.83-4.51); Lymphocyte % 13.1 % (19-41); Mean Corp Hgb Conc 28.8 g/dL (32-36); Mean Corpuscular Hgb 24.3 pg (27.0-32.0); Mean Corpuscular Volume 84.3 fL (81-99); Mean Platelet Vol. 9.7 fl (6.2-12.0); Monocyte# 0.52 X10^3/uL; Monocyte% 10.5 % (0-10); NRBC Flagged by Analyzer 0 % (0-5); Neutrophil # 3.77 X10^3/uL (2.7-7.7); Neutrophil % 75.8 % (47-70); Platelet Count 155 K/mm3 (150-450); RBC Distribution Width CV 16.5 % (11.6-14.6); RBC Distribution Width SD 51.1 fl (35.1-43.9); Red Blood Count 3.05 M/mm3 (4.2-5.4)
[2025-02-24 05:41] LABS: Anion Gap 9 (5-15); BUN 17 mg/dL (4-19); BUN/Creat Ratio 23.4 RATIO (10-20); Calcium,Total 8.5 mg/dL (7.6-11.0); Carbon Dioxide 31.2 mmol/L (21.0-32.0); Chloride 95 mmol/L (98-108); Creatinine, Serum 0.72 mg/dL (0.70-1.20); EST Glomerular Filtration Rate 96 (>60); Estimated Creatinine Clearance 117.88 ml/min (50-250); Glucose 422 mg/dL (70-99); Potassium 4.8 mmol/L (3.3-5.1); Pro- Brain NATRIURETIC PEPTIDE 607 pg/mL (<=900); Sodium Level 135 mmol/L (133-145); Troponin T High Sensitivity 16 ng/L (<=14)
[2025-02-24 05:44] LABS: Allen Test Positive; Base Excess 16 mmol/L (-2 to +2); Bicarbonate 42.6 mmol/L (22-26); Blood Gas Specimen Type ART; Mode Not entered; O2 Delivery Device Cannula; PO2 112 mmHG (75-100); SITE L Radial; SO2 97 % (95-99); Total Carbon Dioxide 45 mmol/L; pCO2 86.6 mmHg (35-45)
[2025-02-24] MEDS: MethylPREDNISolone 125 MG/2 ML Vial IV (05:57)
--- NOTE | 2025-02-24 06:10 | PCM.HP.STD ---
HPI - General General Date of Admission: 02/24/25 Date of Service: 02/24/25 Chief Complaint: Dyspnea, cough, subjective fever, chills. HPI Narrative The patient is a 59 y/o F w/ PMHx: COPD/Asthma with chronic hypoxic respiratory failure 3 L NC per records suspected, Chronic anemia, Anxiety and Depression/bipolar disorder/ADHD/schizoaffective disorder/PTSD, HTN, HLD, Morbid obesity, ABRAM, Seizure disorder, GERD, Gout who presents to the [facility] ED on 02/24/25 with history of dyspnea ongoing for the last nearly a week progressively worsening with decreased activity and movements with increased edema to her legs, productive cough, low-grade fever, difficulty laying flat prompting EMS call and transition to the ED for evaluation. In the ED patient notably more somnolent eventually placed on BiPAP. Workup in the ED included T98.4, heart rate 66, BP 96/61, respiratory rate 21, 95% on 3 L with most recent repeat assessment T98, heart rate 55, BP 97/68, respiratory rate 19, 98% on 3 L, CBC with WBC 5.0, hemoglobin 7.4, MCV 84.3, platelet 155 with lymphopenia, ABG with pH 7.30, bicarb 42.6, PCO2 86.6, PO2 112, BMP with chloride 95, glucose 422, initial troponin 16, BNP 607, chest x-ray appearance of chronic elevation of the right hemidiaphragm, potential bibasilar atelectasis but final read pending per radiology upon evaluation of patient, EKG with sinus rhythm with nonspecific changes with no acute evidence of ischemia similar to previous, rapid SARS COVID/embolism/RSV with positive RSV. In the ED patient ministered DuoNeb therapy and Solu-Medrol 125 mg IV x 1. [facility] Medical History Bipolar disorder Non-smoker CPAP (continuous positive airway pressure) dependence On home oxygen therapy Myocardial infarct Hypertension Seizures History of ESBL E. coli infection Schizophrenia Diabetes PTSD (post-traumatic stress disorder) Depression Schizo affective schizophrenia Other specified peripheral vascular diseases Essential hypertension Chest pain Diabetes mellitus type 2, uncontrolled, with complications Back pain Asthma Knee pain Migraines Fatigue Hemorrhoids COPD (chronic obstructive pulmonary disease) Arthritis Pain syndrome, chronic Bipolar disorder Obstructive sleep apnea Stasis dermatitis of both legs Venous insufficiency of both lower extremities Super obese Open wound of left lower extremity GERD (gastroesophageal reflux disease) Benign hypertension ADHD (attention deficit hyperactivity disorder) Home Medications ?Medication ?Instructions ?Recorded ?Last Taken ?Type bupropion HCl 300 mg 24 hr tablet, 450 mg PO DAILY mental health 03/05/17 10/03/24 History extended release albuterol sulfate 90 mcg/actuation 2 puff inhalation Q4H PRN Sob &/Or 05/29/18 07/07/18 History aerosol inhaler Wheezing glimepiride 2 mg tablet 4 mg PO BID diabetes 09/20/18 10/03/24 History dicyclomine 10 mg capsule 20 mg (2 x 10 mg) PO TIDAC #20 caps 07/28/19 10/03/24 Rx escitalopram oxalate 10 mg tablet 20 mg PO DAILY mental health 08/04/19 10/03/24 History fluticasone propionate 50 2 spray NASAL DAILY allergies 08/04/19 10/03/24 History mcg/actuation nasal spray,suspension tizanidine 4 mg capsule 4 mg PO BID PRN Muscle Spasm 07/15/20 Unknown History aspirin 81 mg chewable tablet 81 mg PO DAILY@0800 07/17/20 10/03/24 Rx nadolol 80 mg tablet 80 mg PO BID high blood pressure 07/08/21 10/03/24 History buspirone 10 mg tablet 20 mg PO TID mood 01/25/22 10/03/24 History cetirizine 10 mg tablet (Zyrtec) 10 mg PO DAILY allergies 01/25/22 10/03/24 History colchicine 0.6 mg tablet 0.6 mg PO DAILY . 01/25/22 10/03/24 History guaifenesin 600 mg tablet, 1,200 mg PO BID PRN Cough 01/25/22 Unknown History extended release 12 hr (Mucinex) hydroxyzine pamoate 25 mg capsule 25 - 75 mg PO BID PRN Itching 01/25/22 Unknown History (Vistaril) hyoscyamine sulfate 0.125 mg 0.125 mg PO Q6H PRN IBS 01/25/22 Unknown History tablet (Levsin) ketorolac 10 mg tablet 10 mg PO Q6H PRN SEVERE HEADACHE 01/25/22 Unknown History lidocaine 4 % topical cream 1 applic topical TID PRN Pain 01/25/22 Unknown History lorazepam 0.5 mg tablet (Ativan) 0.5 - 1 mg PO BID PRN Panic 01/25/22 Unknown History Attack(S) primidone 250 mg tablet 250 mg PO BID seizures 01/25/22 10/03/24 History triamcinolone acetonide 0.1 % 1 applic topical TID PRN Rash 01/25/22 Unknown History topical cream fluticasone 500 mcg-salmeterol 50 1 inh inhalation BID . 05/02/22 10/03/24 History mcg/dose blistr powdr for inhalation insulin glargine 100 unit/mL (3 43 unit subcut QHS 05/02/22 10/02/24 History mL) subcutaneous pen (Lantus Solostar U-100 Insulin) omeprazole 40 mg capsule,delayed 40 mg PO DAILY gerd 05/02/22 10/03/24 History release oxybutynin chloride 10 mg 20 mg PO DAILY bladder 05/02/22 10/03/24 History tablet,extended release 24 hr paliperidone palmitate 117 mg/0.75 117 mg IM Q21D 05/02/22 09/25/24 History mL intramuscular syringe (Invega Sustenna) ergocalciferol (vitamin D2) 1,250 50,000 unit PO MOTH 08/10/22 10/03/24 History mcg (50,000 unit) capsule (Vitamin D2) insulin lispro 100 unit/mL See Rx Instructions subcut QAC DM 08/10/22 10/03/24 History subcutaneous pen lactulose 10 gram/15 mL oral 30 ml PO BID PRN Constipation 08/10/22 Unknown History solution pregabalin 150 mg capsule 150 mg PO TID pain 08/10/22 10/03/24 History valacyclovir 500 mg tablet 500 mg PO DAILY 08/10/22 10/03/24 History promethazine 25 mg tablet 25 mg PO Q6H PRN nausea and 05/10/23 Unknown Rx vomiting 7 days #28 tabs hydrocodone-acetaminophen 5-325mg 1 tab PO Q6H PRN pain 08/28/23 Unknown History 5mg-325mg acidophilus 25 million 1 tab PO DAILY 10/03/24 10/03/24 History cell-pectin, citrus 100 mg tablet lisinopril 10 mg tablet 10 mg PO BID blood pressure 10/03/24 Unknown History naratriptan 2.5 mg tablet See Rx Instructions PO .COMPLEX 10/03/24 Unknown History headache ondansetron 4 mg disintegrating 8 mg PO Q8H PRN Nausea 10/03/24 Unknown History tablet trazodone 150 mg tablet 150 mg PO QHS sleep 10/03/24 10/02/24 History bisacodyl 5 mg tablet,delayed 5 mg PO QHS PRN constipation 5 10/30/24 Unknown Rx release (Gentle Laxative days #10 tabs (bisacodyl)) Allergy/AdvReac Type Severity Reaction Status Date / Time meloxicam Allergy Severe Anaphylaxis Verified 02/24/25 04:04 vancomycin Allergy Severe BURNING Verified 02/24/25 04:04 RED RASH ON LEGGS amlodipine (From Norvasc) Allergy Swelling Verified 02/24/25 04:04 cefazolin sodium (From Ancef) Allergy Hives Verified 02/24/25 04:04 fexofenadine (From Nia) Allergy Shortness Verified 02/24/25 04:04 of breath nitrofurantoin (From Allergy Hives Verified 02/24/25 04:04 Macrobid) peanut Allergy Shortness Verified 02/24/25 04:04 of breath Penicillins Allergy Hives Verified 02/24/25 04:04 sumatriptan (From Imitrex) Allergy Shortness Verified 02/24/25 04:04 of breath adhesive AdvReac BURNING Verified 02/24/25 04:04 amitriptyline (From Elavil) AdvReac Other Verified 02/24/25 04:04 clindamycin AdvReac Diarrhea Verified 02/24/25 04:04 ziprasidone (From Geodon) AdvReac NEEDS Verified 02/24/25 04:04 FOLLOW-UP Family History Father CVA (cerebral vascular accident) Heart disease Mother Heart disease Surgical History History of elbow surgery (~06/2020) History of arthroscopic knee surgery History of left heart catheterization (07/16/20) Kidney stone H/O hernia repair Hx of hysterectomy Hx of section Social History household members: spouse housing: house Smoking Status: Never smoker alcohol intake: current alcohol intake frequency: holidays/special occasions only Alcohol type: wine substance use type: does not use caffeine: Yes (occasionally) ROS ROS Narrative Admission Review of Systems (PER , patient too somnolent) CONSTITUTIONAL: No weight loss,+ subjective fever, chills, weakness or fatigue. HEENT: Eyes: No visual loss, blurred vision, double vision or yellow sclerae. Ears, Nose, Throat: No hearing loss, sneezing, congestion, runny nose or sore throat. SKIN: No rash or itching, lesions, wounds. CARDIOVASCULAR: + Increased edema, orthopnea. No chest pain, chest pressure or chest discomfort, palpitations, syncopal events. RESPIRATORY: + Dyspnea, productive cough, wheezing. No hemoptysis. GASTROINTESTINAL: No anorexia, nausea, vomiting or diarrhea, abdominal pain, melena, BRBPR. GENITOURINARY: No dysuria, frequency, urgency or retention. NEUROLOGICAL: + Chronic headaches, encephalopathy. No dizziness, syncope, paralysis, ataxia, numbness or tingling in the extremities, focal weakness, change in bowel or bladder control, seizure. MUSCULOSKELETAL: + muscle, back pain, joint pain or stiffness. HEMATOLOGIC: + Chronic anemia, no specific history of easy bleeding/bruising. LYMPHATICS: No enlarged nodes. No history of splenectomy. PSYCHIATRIC: + Anxiety and depression/bipolar disorder/ADHD/schizoaffective disorder/PTSD. ENDOCRINOLOGIC: No reports of sweating, cold or heat intolerance. No polyuria or polydipsia. ALLERGIES: + History of asthma, allergic rhinitis. Vital Signs Vital Signs Vital Signs: 02/24/25 04:04 02/24/25 04:07 02/24/25 04:12 Temperature 98.4 F 98.4 F Temperature Source Oral Oral Pulse Rate 66 64 Respiratory Rate 21 H 17 Respiratory Effort Respiratory Depth Respiratory Pattern Blood Pressure 96/61 96/61 Blood Pressure Mean 72 72 Pulse Ox 95 96 Oxygen Delivery Method Nasal Cannula Nasal Cannula Nasal Cannula Oxygen Flow Rate (L/min) 3 3 02/24/25 04:12 02/24/25 04:12 02/24/25 05:09 Temperature Temperature Source Pulse Rate 68 55 L Respiratory Rate 18 19 H Respiratory Effort Normal Respiratory Depth Normal Respiratory Pattern Normal Normal Blood Pressure Blood Pressure Mean Pulse Ox 98 Oxygen Delivery Method Nasal Cannula Oxygen Flow Rate (L/min) 02/24/25 05:09 02/24/25 05:58 02/24/25 06:00 Temperature 98 F 97.8 F 98 F Temperature Source Temporal Temporal Pulse Rate 55 L 55 L 52 L Respiratory Rate 19 H 29 H 19 H Respiratory Effort Respiratory Depth Respiratory Pattern Blood Pressure 97/68 127/66 H 121/69 H Blood Pressure Mean 77 86 86 Pulse Ox 98 97 96 Oxygen Delivery Method Oxygen Flow Rate (L/min) Weight Weight: 313 lb 0.902 oz Body Mass Index (BMI) 52.0 Physical Exam Narrative Physical Examination: General: Awakens to stimuli, intermittently alert, significantly encephalopathic/somnolent, on the BiPAP, not able to answer orientation questions well, coughing intermittently, seated upright in the ED bed. Skin: Normal color, normal turgor, no icterus, no cyanosis except occasional stage ecchymoses, abrasion, small wound to the left anterior perera without any drainage or periwound erythema. HEENT: AT/NC, EOMI, PERRLA, dry MM, BiPAP in place, difficult to discern carotid bruits given referred sounds from BiPAP, difficult to determine JVD given very thickened neck. Lungs: Significantly diminished, distant, likely from habitus, mildly increased respiratory rate, on BiPAP, somnolent as noted, no appreciated rales or ronchi, occasional end expiratory wheeze but very distant. Heart: Mildly bradycardic with rhythm; no gallop, rub audible. Abdomen: Soft, morbidly obese, NTTP, distant BS, difficult to discern distention and HSM given habitus. Extremities: No cyanosis, no clubbing, no marked distal pitting edema noted, see skin. Neurological: Awakens to stimuli, intermittently alert, significantly encephalopathic/somnolent, on the BiPAP, not able to answer orientation questions well, coughing intermittently, seated upright in the ED bed, cognitive function not baseline intact; pupils equally reactive to light and accommodation, cranial nerves appear grossly normal, moving all 4 extremities, no focal deficits, strength severely globally decreased. Psychiatric: Affect appears flat, fatigued, somnolent, no acute evidence of depressive or anxiety feelings but does have underlying history as noted. Results Lab / Micro Data 02/24/25 04:10 02/24/25 04:10 Labs: Laboratory Results - last 24 hr 02/24/25 04:10: WBC 5.0, RBC 3.05 L, Hgb 7.4 L, Hct 25.7 L, MCV 84.3, MCH 24.3 L, MCHC 28.8 L, RDW Std Deviation 51.1 H, RDW Coeff of Jocy 16.5 H, Plt Count 155, MPV 9.7, Immature Gran % (Auto) 0.600, Neut % (Auto) 75.8 H, Lymph % (Auto) 13.1 L, Rolette % (Auto) 10.5 H, Eos % (Auto) 0.0, Baso % (Auto) 0.0, Absolute Neuts (auto) 3.8, Absolute Lymphs (auto) 0.65 L, Nucleated RBC % 0, Sodium 135, Potassium 4.8, Chloride 95 L, Carbon Dioxide 31.2, Anion Gap 9, BUN 17, Creatinine 0.72, Estim Creat Clear Calc 117.88, Est GFR (MDRD) Non-Af 96, BUN/Creatinine Ratio 23.4 H, Glucose 422 H, Calcium 8.5, Troponin T High Sens 16 H, NT pro BNP II 607 Micro: Microbiology 02/24/25 04:10 Mucosa - Nose SARS-CoV-2, Influenza & RSV (PCR) - Final RSV ABG Data ABG results: ABG 02/24/25 05:40 Specimen Type ART Sample Site L Radial pH 7.30 L Bicarbonate Actual 42.6 H Total CO2 45 Base Excess 16 H O2 Saturation 97 O2 % 3.0 ABG pCO2 86.6 H* ABG pO2 112 H Bi Test Positive O2 Delivery Device Cannula Vent Mode Not entered Crit Call To/Read Back Yes Blood Gas Notified Whom Mely Blood Gas Notified Time 05:42:16 Rhythm Strip Rhythm Strip: Sinus Rhythm Rate: 60 Ectopy: None Assessment & Plan Assessment/Plan (1) Acute exacerbation of chronic obstructive pulmonary disease (COPD): (2) RSV bronchitis: PLAN: Plan The patient is a 59 y/o F w/ PMHx: COPD/Asthma with chronic hypoxic respiratory failure 3 L NC per records suspected, Chronic anemia, Anxiety and Depression/bipolar disorder/ADHD/schizoaffective disorder/PTSD, HTN, HLD, Morbid obesity, ABRAM, Seizure disorder, GERD, Gout who presents to the [facility] ED on 02/24/25 with history of dyspnea ongoing for the last nearly a week progressively worsening with decreased activity and movements with increased edema to her legs, productive cough, low-grade fever, difficulty laying flat prompting EMS call and transition to the ED for evaluation. #1. Acute encephalopathy secondary to Acute on Chronic Hypoxic and Hypercarbic Respiratory Failure secondary to Acute on Chronic COPD/asthma exacerbation secondary to acute RSV bronchitis: Will admit to PCU, will continue BiPAP placement, will plan repeat ABG within 1 to 2 hours, continue ATC duonebs, PRN albuterol, IV methylprednisolone, HOB, IS parameters, will obtain sputum Cx, procalcitonin, full respiratory viral panel, MRSA screen, will hold on immediately abx therapy but low threshold to add if appropriate. #2. Acute on chronic normocytic anemia: Admission hemoglobin 7.4, MCV 84.3, baseline hemoglobin noted most recently primarily 07-31, 10/29/2024 hemoglobin 10.3 at that time, will obtain guaiac, iron panel, ferritin to further assess, continue to trend with repeat H&H into the day to be certain. #3. Indeterminate cardiac enzyme: Initial troponin 16, possibly demand given #1, #2, will maintain on telemetry, continue to cycle cardiac enzymes, magnesium level requested, given significant hemoglobin drop will hold on any aspirin therapy addition at this time. #4. Anxiety and depression/bipolar disorder/ADHD/schizoaffective disorder/PTSD: Once oral intake safe we will plan to continue patient home Invega, BuSpar, escitalopram, hydroxyzine, Ativan, trazodone with hold parameters for sedation. #5. Diabetes mellitus type II with chronic neuropathy: Hold oral home regimen, continue home insulin regimen with consideration one half dose while clears or NPO pending enzyme trending, accu checks w/ ISS, will continue home pregabalin regimen once oral intake safe. #6. Hypertension: Temporarily holding hypertensive regimen given low normal BP upon presentation, add back once appropriate. #7. Hyperlipidemia: Not on regimen per current list, defer to outpatient unless enzymes significantly rise then may consider inpatient evaluation. #8. Morbid Obesity: Weight loss and lifestyle changes encouraged. #9. Allergic rhinitis: Once oral intake safe with plan to continue fluticasone, cetirizine home regimen. #10. ABRAM: Per record CPAP nightly however given presentation will continue BiPAP. #11. Seizure disorder: Noted per record, once oral intake safe with plan to continue primidone home regimen. #12. GERD: Will temporarily place on IV PPI pending further evaluation of anemia as noted above. #13. Gout: Once oral intake safe with plan to continue patient home colchicine regimen. #14. Small anterior left perera wound: Not infected appearing, notes several interventions outpatient at home with RN following, he is uncertain of the specifics, will consult wound care in the interim maintain sterile dressing. #15. DVT prophylaxis: SCDs given worsening anemia until certain not GI bleed etiology. #16. CODE status: Patient HCPOA and living will are not in place but her be her medical decision-maker if necessary. Discussed CODE status at length including difference between FULL code, DNR-CCA and DNR-CC status. Following discussions about the differences in these status, requested Full Code status. Advanced Care Planning Face to Face Time: 16 minutes. Charges/Coding Visit Charges Inpatient E&M: 99254 Init Hosp L3 Procedures Hospitalists Procedures: 14773 Advncd Care Plan 30 Min
[2025-02-24 06:56] LABS: Troponin T High Sens 2 HR 17 ng/L (<=14)
[2025-02-24 07:58] LABS: Ferritin 29 ng/mL (22-378); Iron 26 ug/dL (50-170); Iron Binding Capacity,Total 291 ug/dL (250-450); Iron Binding Capacity,Unsat 265 ug/dL (228-428); Magnesium 1.6 mg/dL (1.5-2.2)
[2025-02-24 08:18] LABS: Hematocrit 25.6 % (37-47); Hemoglobin 7.6 g/dL (12.0-15.0)
[2025-02-24 08:28] LABS: Procalcitonin 0.05 ng/mL (<=0.10)
[2025-02-24 08:28] LABS: Bedside Glucose 330 mg/dL (74-106)
[2025-02-24 08:39] LABS: Troponin T High Sens 4 HR 15 ng/L (<=14)
[2025-02-24] MEDS: Pantoprazole Sodium 40 MG in 0.9% Normal Saline (100mL MB+) 100 ML 330 MG IV ×2 (11:12→22:32)
[2025-02-24 11:29] LABS: Ammonia 43.3 umol/L (11-51)
[2025-02-24] MEDS: Insulin Lispro 100 UNIT/ML INSULN.PEN SC ×2 (11:32→22:33)
[2025-02-24] MEDS: Sodium Ferric Gluconat/Sucrose 250 MG in 0.9% Normal Saline (250mL Bag) 250 ML 135 MG IV (11:38)
--- NOTE | 2025-02-24 11:47 | CASEMGMT ---
RN AIDA Assessment Face to Face with patient for initial transition planning/care coordination assessment. RN CM introduced self and role at [facility], pt voices understanding. Pt is A&Ox4 and is resting comfortably in bed and is calm. Pt is currently on BiPAP. Pt orthotic aide (Kenyetta Salazar) at bedside. Care providers, pharmacy, and demographics verified. Admitting dx: Encephalopathy, Hypercapnia, COPD Exacerbation, RSV LACE Strata: 3 PCP: Cristal Wolf Specialists: Pt [facility] but is unsure who this is. Pt also has a counselor through [employer] [facility] Preferred Pharmacy: [facility] Insurance: [employer] Prescription Benefit: Yes LNOK: Elliott Valenzuela (Father) Living Arrangements: Pt lives alone in a single story apartment with a flat entrance ADLs/IADLs: Pt requires assistance and is active with a nursing home administrator (Kenyetta) through [facility] [employer]. Kenyetta states that she is at the pt home M-F (8a-4p). Pt father is also close and is able to support the pt. Transportation: Father. Denies concerns DME: home oxygen through [employer]. Verified 3L @ rest and 5L with exertion via NC. Pt states that she has a concentrator, portable tanks, and a pulse ox. Pt reports that her father can bring in portability @ the time of DC. Pt also has a BGM and CBGM with sufficient supplies. Pt states that she also has the following: FWW, Rollator, Grab bars, shower chair, and medical alert system. HHC/SNF: Pt is active with [facility]. History with [facility]. Denies SNF Hx or needs. Community Resources: Pt is active with [facility] and has MoW and a medical alert system. Per chart review, the pt CM is Richa Tam ([phone]). TC to the CM at this time. No answer, VM left. Pt?s goal: Return home Plan: Anticipate eventual DC home once medically ready with the continuation of skilled HHC, private duty HHC, father assistance, and oxygen needs. At this time, the pt states that she wants to return home once able and denies SNF needs. CM to follow. Report given to BAND DIRECTOR CM and SW. Harvey Zaldivar RN, CM
--- NOTE | 2025-02-24 11:52 | CASEMGMT ---
Discharge Planning Per Alicja SHAH, pt is active with SN. RN CM updated. Nat Gtz DC Planning Asst.
--- NOTE | 2025-02-24 12:05 | CASEMGMT ---
Discharge Planning ROYX referral sent to Devonte SHAH. Nat Gtz DC Planning Asst.
[2025-02-24 12:12] LABS: Hematocrit 27.7 % (37-47); Hemoglobin 8.1 g/dL (12.0-15.0)
[2025-02-24 13:17] LABS: Bedside Glucose 366 mg/dL (74-106)
--- NOTE | 2025-02-24 14:14 | WOUNDNOTE ---
wound photo: left lower leg
[2025-02-24] MEDS: Acetaminophen 325 MG Tablet 650 MG PO (14:23)
[2025-02-24] MEDS: Methylprednisolone Sod Succ 40 MG/ML VIAL IV ×2 (14:37→22:32)
[2025-02-24] MEDS: Magnesium Sulfate 2 GM in Dextrose 5%-Water (100mL Bag) 100 ML IV (14:37)
--- NOTE | 2025-02-24 16:21 | CHAPLAIN ---
Type of Pastoral Visit _x__ Initial Visit ___ Follow-up Visit ___ On-call Visit ___ General Patient Visit ___ Spiritual Assessment ___ Family Conference ___ Bereavement ___ Rapid Response ___ Code Blue ___ Other (describe below) Pastoral Care Referral From _x__ Patient ___ Family ___ Nurse ___ Physician ___ Cover Inspector ___ Bun Machine Operator ___ Other (describe below) Sacrament/Intervention _x__ Active listening ___ Anointing ___ Baptist ___ Bereavement ___ Communion ___ Rianna exploration ___ ___ Life review _x__ Prayer ___ Reconciliation ___ Sacrament of Sick _x__ Supportive presence ___ Wedding ___ Other (describe below) Pastoral Comments patient is weary looking and says that she has RSV; family members are in the room and welcoming; pt says that she just needs a prayer now as she is feeling low; offered support and care to family as well;
[2025-02-24] MEDS: guaiFENesin 10 ML UDC (200MG/10ML) 20 ML PO ×2 (16:31→20:47)
--- NOTE | 2025-02-24 16:43 | PN.HOSP_ITS ---
Hospitalist Note Patient evaluated after being on BiPAP for several hours, more awake and alert and doing much better. Will advance diet and continue respiratory support for her RSV. Still awaiting final med reconciliation but per fill history does appear she is still filling bupropion, BuSpar, Lexapro. Hemoglobin has not further down trended, did add on IV iron for patient due to pattern of iron deficiency, FOBT pending. If this remains stable may be able to have outpatient evaluation, if any further drops or overt bleeding may need to consider inpatie nt evaluation
[2025-02-24] MEDS: 0.9% Saline Lock 10 ML Syringe IV (16:53)
[2025-02-24] MEDS: Insulin Glargine-YFGN 100 UNIT/ML Pen 43 UNIT SC (22:34)
[2025-02-24] MEDS: busPIRone 5 MG Tablet 20 MG PO (22:34)
[2025-02-25] VITALS (16 sets, daily range): BP systolic 150–171; BP diastolic 71–93; PULSE 65–92; RESP 14–26; TEMP 36.4–36.8; O2SAT 92–99; BMI 50.1
[2025-02-25] MEDS: Acetaminophen 325 MG Tablet 650 MG PO ×3 (00:03→18:48)
[2025-02-25 00:52] LABS: Bedside Glucose 303 mg/dL (74-106)
[2025-02-25] MEDS: ALPRAZolam 0.25 MG Tablet PO (04:36)
[2025-02-25] MEDS: busPIRone 5 MG Tablet 20 MG PO ×3 (04:36→21:32)
[2025-02-25] MEDS: 0.9% Saline Lock 10 ML Syringe IV ×2 (05:55→12:15)
[2025-02-25] MEDS: Methylprednisolone Sod Succ 40 MG/ML VIAL IV ×3 (05:55→21:34)
[2025-02-25] MEDS: guaiFENesin 10 ML UDC (200MG/10ML) 20 ML PO ×4 (06:04→21:37)
[2025-02-25 06:12] LABS: Absolute Lymphocyte Count 0.59 X10^3/uL (0.83-4.51); Absolute Neutrophil Count 3.9 X10^3/uL (2.0-7.7); Hematocrit 27.7 % (37-47); Hemoglobin 8.3 g/dL (12.0-15.0); Lymphocyte # 0.59 X10^3/ul (0.83-4.51); Lymphocyte % 11.9 % (19-41); Mean Corpuscular Hgb 24.6 pg (27.0-32.0); Mean Platelet Vol. 9.3 fl (6.2-12.0); Monocyte# 0.41 X10^3/uL; Monocyte% 8.3 % (0-10); NRBC Flagged by Analyzer 0 % (0-5); Neutrophil # 3.89 X10^3/uL (2.7-7.7); Neutrophil % 78.8 % (47-70); POSITIVE DIFFERENTIAL YES; Platelet Count 163 K/mm3 (150-450); RBC Distribution Width CV 16.2 % (11.6-14.6); RBC Distribution Width SD 48.8 fl (35.1-43.9); Red Blood Count 3.38 M/mm3 (4.2-5.4); White Blood Count 4.9 K/mm3 (4.4-11.0)
[2025-02-25 06:27] LABS: ALB/GLOB Ratio 1.2 RATIO (0.9-2.4); AST(SGOT) 25 U/L (<=31); Alanine Aminotransfer ALT/SGPT 39 U/L (<=34); Albumin, Serum 3.7 g/dL (3.4-4.8); Alkaline Phosphatase 70 U/L (35-104); Anion Gap 9 (5-15); BUN 13 mg/dL (4-19); Calcium,Total 8.8 mg/dL (7.6-11.0); Carbon Dioxide 32.8 mmol/L (21.0-32.0); Chloride 94 mmol/L (98-108); Creatinine, Serum 0.61 mg/dL (0.70-1.20); EST Glomerular Filtration Rate 102 (>60); Estimated Creatinine Clearance 135.95 ml/min (50-250); Globulin 3.1 g/dL (2.2-4.2); Glucose 286 mg/dL (70-99); Potassium 4.6 mmol/L (3.3-5.1); Protein, Total 6.7 g/dL (5.9-8.4); Sodium Level 135 mmol/L (133-145); Total Bilirubin 0.21 mg/dL (0.00-1.30)
[2025-02-25] MEDS: Insulin Lispro 100 UNIT/ML INSULN.PEN SC ×4 (06:29→21:35)
[2025-02-25 06:48] LABS: Bedside Glucose 235 mg/dL (74-106)
[2025-02-25] MEDS: Ipratropium/Albuterol Sulfate 3 ML AMPUL.NEB INHALATION ×5 (07:20→23:45)
[2025-02-25] MEDS: Pantoprazole Sodium 40 MG in 0.9% Normal Saline (100mL MB+) 100 ML 330 MG IV ×2 (11:55→21:43)
[2025-02-25] MEDS: Escitalopram Oxalate 20 MG Tablet PO (11:58)
[2025-02-25] MEDS: buPROPion (XL) 150 MG TABLET.XL 450 MG PO (11:59)
[2025-02-25] MEDS: 0.9% Normal Saline (100mL Bag) 100 ML 15 ML IV (12:06)
[2025-02-25 13:16] LABS: Bedside Glucose 280 mg/dL (74-106)
[2025-02-25] MEDS: LORazepam 0.5 MG Tablet PO ×2 (16:05→22:24)
[2025-02-25] MEDS: Colchicine 0.6 MG TABLET PO (16:55)
[2025-02-25] MEDS: Lisinopril 10 MG Tablet PO (16:56)
[2025-02-25] MEDS: Tolterodine Tartrate 4 MG CAP.SA PO (16:56)
[2025-02-25] MEDS: Nadolol 40 MG Tablet 80 MG PO (16:56)
[2025-02-25] MEDS: Aspirin 81 MG TAB.CHEW PO (16:57)
[2025-02-25 17:35] LABS: Bedside Glucose 239 mg/dL (74-106)
[2025-02-25] MEDS: Pregabalin 75 MG Capsule 150 MG PO ×2 (17:35→21:34)
[2025-02-25] MEDS: Benzonatate 100 MG Capsule PO (18:48)
[2025-02-25] MEDS: hydrALAZINE 20 MG/ML Vial 10 MG IV (18:55)
--- NOTE | 2025-02-25 19:01 | PN.HOSP_ITS ---
Reason for Visit Reason for Visit: Diagnoses Acute bronchitis due to respiratory syncytial virus (02/24/25) Chronic obstructive pulmonary disease with (acute) exacerbation (02/24/25) Subjective Subjective Patient sitting up in chair, feeling much better today but is still short of breath, is coughing but has not been very productive cough Objective Data Objective Data Vital Signs: Vital Signs Temp Pulse Resp BP Pulse Ox O2 Del Method O2 Flow Rate 97.9 F 88 20 H 164/91 H 98 Nasal Cannula 3 02/25/25 18:00 02/25/25 18:55 02/25/25 18:00 02/25/25 18:55 02/25/25 18:00 02/25/25 18:00 02/25/25 18:00 FiO2 28 02/25/25 00:15 Oxygen Flow Rate (L/min) 3 Oxygen Delivery Method Nasal Cannula Weight: 136.8 kg Body Mass Index (BMI) 50.1 Intake & Output: Intake and Output for Last 24 Hours 02/23/25 02/24/25 02/25/25 23:59 23:59 23:59 Intake Total 484 / 834 1353.5 / 1353.5 Output Total 0 / 300 700 / 700 Balance 484 / 534 653.5 / 653.5 Lab / Micro Data 02/25/25 05:25 02/25/25 05:25 Labs: Laboratory Results - last 24 hr 02/24/25 22:23: POC Glucose 303 H 02/25/25 05:25: WBC 4.9, RBC 3.38 L, Hgb 8.3 L, Hct 27.7 L, MCV 82.0, MCH 24.6 L , MCHC 30.0 L, RDW Std Deviation 48.8 H, RDW Coeff of Jocy 16.2 H, Plt Count 163, MPV 9.3, Immature Gran % (Auto) 1.000 H, Neut % (Auto) 78.8 H, Lymph % (Auto) 11.9 L, [place] % (Auto) 8.3, Eos % (Auto) 0.0, Baso % (Auto) 0.0, Absolute Neuts (auto) 3.9, Absolute Lymphs (auto) 0.59 L, Nucleated RBC % 0, Sodium 135, Potassium 4.6, Chloride 94 L, Carbon Dioxide 32.8 H, Anion Gap 9, BUN 13, C reatinine 0.61 L, Estim Creat Clear Calc 135.95, Est GFR (MDRD) Non-Af 102, B UN/Creatinine Ratio 22.0 H, Glucose 286 H, Calcium 8.8, Total Bilirubin 0.21, AST 25, ALT 39 H, Alkaline Phosphatase 70, Total Protein 6.7, Albumin 3.7, Globulin 3.1, Albumin/Globulin Ratio 1.2 02/25/25 06:28: POC Glucose 235 H 02/25/25 12:55: POC Glucose 280 H 02/25/25 16:58: POC Glucose 239 H Micro: Microbiology 02/25/25 00:35 Sputum, Expectorated/Coughed Gram Stain - Final 02/25/25 05:50 Nasal Secretion MRSA (PCR) - Final 02/25/25 06:10 Stool Stool Occult Blood ([facility]) - Final Occult Blood Positive 02/24/25 11:33 Mucosa - Nose Respiratory Panel (PCR) - Final RSV B 02/24/25 04:10 Mucosa - Nose SARS-CoV-2, Influenza & RSV (PCR) - Final RSV Rhythm Strip Rhythm Strip: Sinus Rhythm Rate: 60 Ectopy: None Physical Exam Narrative General: Alert, oriented, no apparent distress HEENT: Atraumatic, normocephalic Eyes: Anicteric, normal conjunctiva, extraocular movements grossly intact Neck: Supple Respiratory: No overt respiratory distress, somewhat diminished at the bases but suspect this is in part due to habitus Cardiovascular: Regular rate and rhythm GI: Soft, nontender, nondistended Extremities: No significant pitting edema Musculoskeletal: Moving all extremities Neuro: No overt focal neurological deficits Skin: No rashes appreciated Psych: Cooperative Assessment & Plan Assessment/Plan (1) Acute exacerbation of chronic obstructive pulmonary disease (COPD): PLAN: Plan #Acute exacerbation of COPD secondary to RSV with hypoxia and hypercapnia -Admit to floor, continuous O2 monitoring -Chest x-ray: With basilar atelectatic pulmonary changes and query mild central pulmonary congestion - Respiratory panel positive for RSV -O2 in place, wean as tolerated, initially required BiPAP but is now on nasal cannula -IV methylprednisone -Scheduled DuoNebs -Albuterol prn # Bipolar disorder and anxiety -Continue home medications, home med rec updated, these have been resumed # Anemia - Hemoglobin lower than previous values but is stable - FOBT was found to be positive but patient denies any overt or noticeable blood in stool - If hemoglobin remained stable may be a good candidate for close outpatient follow-up, given present respiratory status and acute illness suspect that any endoscopies would be better served on an elective basis if possible however if any significant drops in hemoglobin or overt blood may need inpatient GI consult #Type 2 diabetes mellitus -Glucose checks and sliding scale insulin - Increasing long-acting insulin note patient's MedRec is updated #Hypertension - Home antihypertensives resumed #ABRAM - Noncompliant at home will need to follow-up outpatient for new sleep study and/or home device #Morbid obesity -BMI documented as 50.2 kg/m? at time of admission -Complicates treatment, prognosis, outcomes -Recommend weight loss and lifestyle changes #DVT ppx: SCDs Jenni Swartz MD Charges/Coding Visit Charges Inpatient E&M: 34543 Subs Hosp L2
[2025-02-25] MEDS: Primidone 250 MG Tablet 750 MG PO (21:34)
[2025-02-25] MEDS: Insulin Glargine-YFGN 100 UNIT/ML Pen 60 UNIT SC (21:36)
[2025-02-25] MEDS: MELATONIN 3 MG TABLET PO (21:38)
[2025-02-26] MEDS: Acetaminophen 325 MG Tablet 650 MG PO ×3 (00:13→09:46)
[2025-02-26 01:59] VITALS: BP 165/91; PULSE 86; RESP 14; TEMP 36.6; O2SAT 100
--- NOTE | 2025-02-26 02:01 | CPS ---
pt refuses to wear bipap mask anymore tonight. RN aware.
[2025-02-26 02:15] LABS: Bedside Glucose 274 mg/dL (74-106)
[2025-02-26 04:24] VITALS: BMI 50.1
[2025-02-26] MEDS: busPIRone 5 MG Tablet 20 MG PO ×2 (05:22→14:40)
[2025-02-26] MEDS: Pregabalin 75 MG Capsule 150 MG PO ×2 (05:22→14:40)
[2025-02-26] MEDS: Methylprednisolone Sod Succ 40 MG/ML VIAL IV ×2 (05:25→14:40)
[2025-02-26 06:44] LABS: Absolute Lymphocyte Count 0.57 X10^3/uL (0.83-4.51); Absolute Neutrophil Count 5.5 X10^3/uL (2.0-7.7); Hemoglobin 9.3 g/dL (12.0-15.0); Lymphocyte # 0.57 X10^3/ul (0.83-4.51); Lymphocyte % 8.3 % (19-41); Mean Corpuscular Hgb 24.7 pg (27.0-32.0); Mean Corpuscular Volume 82.2 fL (81-99); Mean Platelet Vol. 9.6 fl (6.2-12.0); Monocyte# 0.69 X10^3/uL; Monocyte% 10.1 % (0-10); NRBC Flagged by Analyzer 0 % (0-5); Neutrophil # 5.52 X10^3/uL (2.7-7.7); Neutrophil % 80.6 % (47-70); POSITIVE DIFFERENTIAL YES; Platelet Count 172 K/mm3 (150-450); RBC Distribution Width CV 16.3 % (11.6-14.6); RBC Distribution Width SD 48.3 fl (35.1-43.9); Red Blood Count 3.77 M/mm3 (4.2-5.4); White Blood Count 6.9 K/mm3 (4.4-11.0)
[2025-02-26 06:59] LABS: Anion Gap 11 (5-15); BUN 10 mg/dL (4-19); BUN/Creat Ratio 18.8 RATIO (10-20); Calcium,Total 8.9 mg/dL (7.6-11.0); Carbon Dioxide 30.9 mmol/L (21.0-32.0); Chloride 93 mmol/L (98-108); Creatinine, Serum 0.55 mg/dL (0.70-1.20); EST Glomerular Filtration Rate 104 (>60); Estimated Creatinine Clearance 150.78 ml/min (50-250); Glucose 283 mg/dL (70-99); Potassium 4.3 mmol/L (3.3-5.1); Sodium Level 135 mmol/L (133-145)
[2025-02-26 07:03] VITALS: PULSE 79; RESP 20; O2SAT 94
[2025-02-26] MEDS: Ipratropium/Albuterol Sulfate 3 ML AMPUL.NEB INHALATION ×2 (07:03→10:41)
[2025-02-26] MEDS: Insulin Lispro 100 UNIT/ML INSULN.PEN SC ×2 (07:53→12:00)
[2025-02-26 09:00] VITALS: BP 153/89; PULSE 56; RESP 18; TEMP 36.4
[2025-02-26] MEDS: Benzonatate 100 MG Capsule PO (09:46)
[2025-02-26] MEDS: buPROPion (XL) 150 MG TABLET.XL 450 MG PO (09:47)
[2025-02-26] MEDS: Escitalopram Oxalate 20 MG Tablet PO (09:47)
[2025-02-26] MEDS: Nadolol 40 MG Tablet 80 MG PO (09:47)
[2025-02-26] MEDS: Colchicine 0.6 MG TABLET PO (09:47)
[2025-02-26] MEDS: Tolterodine Tartrate 4 MG CAP.SA PO (09:47)
[2025-02-26] MEDS: Pantoprazole Sodium 40 MG in 0.9% Normal Saline (100mL MB+) 100 ML 330 MG IV (09:48)
[2025-02-26] MEDS: Aspirin 81 MG TAB.CHEW PO (09:48)
[2025-02-26] MEDS: Lisinopril 10 MG Tablet PO (09:52)
[2025-02-26 10:41] VITALS: PULSE 77; RESP 20
--- NOTE | 2025-02-26 14:11 | DCINST_ITS ---
Discharge Instructions Diet Discharge Diet: Carb Control Diet DC O2, CPAP, BIPAP needs Home O2 Discharge instructions: Yes Type of respiratory needs?: Oxygen Oxygen frequency: At rest (5) and With Ambulation Oxygen liters per minute during Ambulation: 3 Dressing / Incision Discharge Activity: Return to Normal Activity Follow Up Care Test Results: Test results from this visit will be discussed in further detail at your follow- up appointment, if applicable. Discharge Plan Admission Admit Date/Time: 02/24/25 06:12 Primary Reason for Your Visit: Shortness of breath Attending Provider: Jenni Swratz Primary Care Provider: Cristal Wolf Consulting Providers: Jessica Rebolledo Instructions Patient Instructions: RSV (Respiratory Syncytial Virus) Additional Instructions / Restrictions: DISCHARGE INSTRUCTIONS PLEASE READ *Please take this with you to your next doctors appointment* -You have been diagnosed with RSV which caused breathing problems for you -You will be discharged on a prednisone taper: -60 mg daily x3 days -50mg daily x3 days -40mg daily x3 days -30mg daily x3 days -20mg daily x3 days -10mg daily x3 days -Resume your home medications -It will be very important that you follow with your primary care physician to obtain a new CPAP or BiPAP or to have updated sleep study if needed to obtain a new machine as this is unable to be coordinated through the hospital -You will need to follow-up with Dr. Park with GI in his office upon discharge due to the microscopic blood seen in your stool, your blood counts remained stable so it is reasonable to follow-up on an outpatient basis. Please call his office to schedule an appointment (ph. [phone]) -Would recommend lab work (CBC) to check your hemoglobin in 3-5 days through your primary care physician's office. Please call their office upon discharge to obtain order for lab work. -Please call your primary care provider's office upon discharge to schedule a hospital follow up within 1 week. -For any concerning signs or symptoms please call 911 or proceed to the nearest emergency department Discharge Orders/Prescriptions Prescriptions: New prednisone 20 mg Tablet See Taper PO BREAKFAST Qty: 32 0RF Taper: Prednisone Taper 60 mg WITH BREAKFAST for 3 Days and 0 Hour 50 mg WITH BREAKFAST for 3 Days and 0 Hour 40 mg WITH BREAKFAST for 3 Days and 0 Hour 30 mg WITH BREAKFAST for 3 Days and 0 Hour 20 mg WITH BREAKFAST for 3 Days and 0 Hour 10 mg WITH BREAKFAST for 3 Days and 0 Hour Continued omeprazole 40 mg capsule,delayed release(DR/EC) 40 mg PO DAILY oxybutynin chloride 10 mg tablet extended release 24hr 15 mg PO DAILY Invega Sustenna 117 mg/0.75 mL syringe 117 mg IM Q21D pregabalin 150 mg capsule 150 mg PO TID ergocalciferol (vitamin D2) [Vitamin D2] 1,250 mcg (50,000 unit) capsule 50,000 unit PO MOTH insulin lispro 100 unit/mL insulin pen See Rx Instructions subcut QAC Rx Instructions: 14 units with breakfast ,16units with lunch, 24units with diner bupropion HCl 300 MG tablet extended release 24 hr 450 mg PO DAILY Patient Comments: DEPRESSION albuterol sulfate 1 INHALER inhaler 2 puff INHALATION Q4H PRN (Reason: Sob &/Or Wheezing) dicyclomine 10 MG capsule 20 mg PO TIDAC Qty: 20 0RF fluticasone propionate 1 SPRAY spray,suspension 2 spray NASAL DAILY escitalopram oxalate 10 MG tablet 20 mg PO DAILY tizanidine 4 MG capsule 4 mg PO BID PRN (Reason: Muscle Spasm) aspirin 81 MG tablet,chewable 81 mg PO DAILY@0800 0RF insulin glargine [Lantus Solostar U-100 Insulin] 100 unit/mL (3 mL) insulin pen 74 unit SUBCUT QHS cetirizine [Zyrtec] 10 mg Tablet 10 mg PO DAILY triamcinolone acetonide 0.1 % Cream 1 applic TOPICAL TID PRN (Reason: Rash) primidone 250 mg Tablet 750 mg PO QHS lorazepam [Ativan] 0.5 mg Tablet 0.5 - 1 mg PO BID PRN (Reason: Panic Attack(S)) hyoscyamine sulfate [Levsin] 0.125 mg Tablet 0.125 mg PO Q6H PRN (Reason: IBS) buspirone 10 mg Tablet 20 mg PO TID colchicine 0.6 mg Tablet 0.6 mg PO DAILY hydroxyzine pamoate [Vistaril] 25 mg Capsule 25 - 75 mg PO BID PRN (Reason: Itching) guaifenesin [Mucinex] 600 mg Tablet Extended Release 12hr 1,200 mg PO BID PRN (Reason: Cough) fluticasone propion-salmeterol 500-50 mcg/dose blister with device 1 inh INHALATION BID lactulose 10 gram/15 mL solution 60 ml PO BID PRN (Reason: Constipation) naratriptan 2.5 mg tablet See Rx Instructions .ROUTE .COMPLEX Rx Instructions: take 1 tab at onset of headache; if no relief may repeat 1 tab after at least 4 hrs; max = 2 tabs/24 hrs ondansetron 4 MG tablet 4 mg PO Q8H PRN (Reason: Nausea) lisinopril 10 mg tablet 10 mg PO BID trazodone 150 mg tablet 150 mg PO QHS bisacodyl [Gentle Laxative (bisacodyl)] 5 mg tablet,delayed release (DR/EC) 5 mg PO QHS PRN (Reason: constipation) 5 Days Qty: 10 0RF albuterol sulfate 2.5 mg /3 mL (0.083 %) solution for nebulization 2.5 mg inhalation Q6H PRN (Reason: shortness of breath or wheezing) Patient Comments: [NO ORIGINAL SIG] cholecalciferol (vitamin D3) 1,250 mcg (50,000 unit) capsule 1,250 mcg PO QWEEK Ozempic 1 mg/dose (4 mg/3 mL) pen injector 1 mg subcut QWEEK nadolol 80 mg tablet 80 mg PO BID Patient Comments: BLOOD PRESSURE Referrals / Follow Up: Cristal Wolf MD [Primary Care Provider] - Héctor Park DO [Med Staff - Active Staff] - (-You will need to follow-up with Dr. Park with GI in his office upon discharge due to the microscopic blood seen in your stool, your blood counts remained stable so it is reasonable to follow-up on an outpatient basis. Please call his office to schedule an appointment (ph. [phone])) Disposition Disposition (needs filled in before D/C Order can be placed): Home Health Service
--- NOTE | 2025-02-26 14:22 | PCM.DC.SUM ---
Providers Date of Admission: 02/24/25 Date of Discharge: 02/26/25 Primary Care Physician: Dr. Cristal Wolf MD Consultations 02/24/25 07:39 Consult: Onc/Wound/district resource officer Routine Comment: Reason for Consult:: L anterior perera wound Reason For Visit: ENCEPHALOPATHY, HYPERCAPNIA, COPD EXAC, RSV Diagnosis Discharge Diagnosis (1) Acute exacerbation of chronic obstructive pulmonary disease (COPD): Status: Chronic Code(s): J44.1 - Chronic obstructive pulmonary disease with (acute) exacerbation Plan #Acute exacerbation of COPD secondary to RSV with hypoxia and hypercapnia # Bipolar disorder and anxiety # Anemia #Type 2 diabetes mellitus #Hypertension #ABRAM #Morbid obesity Medications at Discharge Home Medications bupropion HCl 300 mg 24 hr tablet, extended release 450 mg PO DAILY mental health 03/05/17 albuterol sulfate 90 mcg/actuation aerosol inhaler 2 puff inhalation Q4H PRN Sob &/Or Wheezing 05/29/18 dicyclomine 10 mg capsule 20 mg (2 x 10 mg) PO TIDAC stomach #20 caps 07/28/19 escitalopram oxalate 10 mg tablet 20 mg PO DAILY mental health 08/04/19 fluticasone propionate 50 mcg/actuation nasal spray,suspension 2 spray NASAL DAILY allergies 08/04/19 tizanidine 4 mg capsule 4 mg PO BID PRN Muscle Spasm 07/15/20 aspirin 81 mg chewable tablet 81 mg PO DAILY@0800 heart health 07/17/20 nadolol 80 mg tablet 80 mg PO BID high blood pressure 07/08/21 buspirone 10 mg tablet 20 mg PO TID mood 01/25/22 cetirizine 10 mg tablet (Zyrtec) 10 mg PO DAILY allergies 01/25/22 colchicine 0.6 mg tablet 0.6 mg PO DAILY gout 01/25/22 guaifenesin 600 mg tablet, extended release 12 hr (Mucinex) 1,200 mg PO BID PRN Cough 01/25/22 hydroxyzine pamoate 25 mg capsule (Vistaril) 25 - 75 mg PO BID PRN Itching 01/25/22 hyoscyamine sulfate 0.125 mg tablet (Levsin) 0.125 mg PO Q6H PRN IBS 01/25/22 lorazepam 0.5 mg tablet (Ativan) 0.5 - 1 mg PO BID PRN Panic Attack(S) 01/25/22 primidone 250 mg tablet 750 mg PO QHS seizures 01/25/22 triamcinolone acetonide 0.1 % topical cream 1 applic topical TID PRN Rash 01/25/22 fluticasone 500 mcg-salmeterol 50 mcg/dose blistr powdr for inhalation 1 inh inhalation BID breathing 05/02/22 insulin glargine 100 unit/mL (3 mL) subcutaneous pen (Lantus Solostar U-100 Insulin) 74 unit subcut QHS diabetes 05/02/22 omeprazole 40 mg capsule,delayed release 40 mg PO DAILY gerd 05/02/22 oxybutynin chloride 10 mg tablet,extended release 24 hr 15 mg PO DAILY bladder 05/02/22 paliperidone palmitate 117 mg/0.75 mL intramuscular syringe (Invega Sustenna) 117 mg IM Q21D mental disorder 05/02/22 ergocalciferol (vitamin D2) 1,250 mcg (50,000 unit) capsule (Vitamin D2) 50,000 unit PO MOTH replaced by [facility] 08/10/22 insulin lispro 100 unit/mL subcutaneous pen See Rx Instructions subcut QAC DM 08/10/22 lactulose 10 gram/15 mL oral solution 60 ml PO BID PRN Constipation 08/10/22 pregabalin 150 mg capsule 150 mg PO TID pain 08/10/22 lisinopril 10 mg tablet 10 mg PO BID blood pressure 10/03/24 naratriptan 2.5 mg tablet See Rx Instructions PO .COMPLEX headache 10/03/24 ondansetron 4 mg disintegrating tablet 4 mg PO Q8H PRN Nausea 10/03/24 trazodone 150 mg tablet 150 mg PO QHS sleep 10/03/24 bisacodyl 5 mg tablet,delayed release (Gentle Laxative (bisacodyl)) 5 mg PO QHS PRN constipation 5 days #10 tabs 10/30/24 albuterol sulfate 2.5 mg/3 mL (0.083 %) solution for nebulization 2.5 mg inhalation Q6H PRN shortness of breath or wheezing 02/25/25 cholecalciferol (vitamin D3) 1,250 mcg (50,000 unit) capsule 1,250 mcg PO QWEEK [facility] 02/25/25 semaglutide 1 mg/dose (4 mg/3 mL) subcutaneous pen injector (Ozempic) 1 mg subcut QWEEK weight loss 02/25/25 doxycycline hyclate 100 mg capsule 100 mg PO BID 5 days #10 caps 02/26/25 prednisone 20 mg tablet See Taper PO BREAKFAST #32 tabs 02/26/25 Hospital Course Summary of Care Provided Minutes Spent on Discharge: 32 Hospital Course: #Acute exacerbation of COPD secondary to RSV with hypoxia and hypercapnia # Bipolar disorder and anxiety # Anemia #Type 2 diabetes mellitus #Hypertension #ABRAM #Morbid obesity 59-year-old female with the above presented [facility] ED 02/24/25 with increased shortness of breath for 6 days that have been worsening. She is found to have RSV but she was also hypercapnic with a PCO2 of 86.6 with decreased mental and respiratory status so patient was started on BiPAP and admitted to the floor and started on Solu-Medrol. Patient improved significantly with BiPAP and IV steroids and oxygen was weaned down to her home prescription of 3 L at rest with maintenance of good saturations. On day of discharge respiratory status much improved and there is no further indication for continued inpatient admission. Patient did end up growing staph epidermis in her sputum so doxycycline was added to her discharge medication list. Of note during her hospitalization it was noted that her hemoglobin was down from previous, FOBT was positive but patient with no overt blood in stool and hemoglobin stayed stable, given patient's respiratory status and acute illness discussed risks and benefits do feel it is appropriate for patient to follow-up with GI on discharge for elective workup as acute illness resolves. Discharge instructions as followed -You have been diagnosed with RSV which caused breathing problems for you -You will be discharged on a prednisone taper: -60 mg daily x3 days -50mg daily x3 days -40mg daily x3 days -30mg daily x3 days -20mg daily x3 days -10mg daily x3 days - You will also be discharged on doxycycline 100 mg twice daily for 5 days -Resume your home medications -It will be very important that you follow with your primary care physician to obtain a new CPAP or BiPAP or to have updated sleep study if needed to obtain a new machine as this is unable to be coordinated through the hospital -You will need to follow-up with Dr. Park with GI in his office upon discharge due to the microscopic blood seen in your stool, your blood counts remained stable so it is reasonable to follow-up on an outpatient basis. Please call his office to schedule an appointment (ph. [phone]) -Would recommend lab work (CBC) to check your hemoglobin in 3-5 days through your primary care physician's office. Please call their office upon discharge to obtain order for lab work. -Please call your primary care provider's office upon discharge to schedule a hospital follow up within 1 week. -For any concerning signs or symptoms please call 911 or proceed to the nearest emergency department Physical Exam Narrative General: Alert, oriented, no apparent distress HEENT: Atraumatic, normocephalic Eyes: Anicteric, normal conjunctiva, extraocular movements grossly intact Neck: Supple Respiratory: No increased respiratory distress, no wheezes or rhonchi Cardiovascular: Regular rate and rhythm GI: Soft, nontender, nondistended Extremities: No significant pitting edema Musculoskeletal: Moving all extremities Neuro: No overt focal neurological deficits Skin: No rashes appreciated Psych: Cooperative Weight / BMI Weight Weight: 136.8 kg Body Mass Index (BMI) 50.1 ABG / Lab / Microbiology Data 02/26/25 06:00 02/26/25 06:00 Laboratory: Laboratory Results - last 24 hr 02/25/25 21:25: POC Glucose 274 H 02/26/25 06:00: WBC 6.9, RBC 3.77 L, Hgb 9.3 L, Hct 31.0 L, MCV 82.2, MCH 24.7 L, MCHC 30.0 L, RDW Std Deviation 48.3 H, RDW Coeff of Jocy 16.3 H, Plt Count 172, MPV 9.6, Immature Gran % (Auto) 1.000 H, Neut % (Auto) 80.6 H, Lymph % (Auto) 8.3 L, [place] % (Auto) 10.1 H, Eos % (Auto) 0.0, Baso % (Auto) 0.0, Absolute Neuts (auto) 5.5, Absolute Lymphs (auto) 0.57 L, Nucleated RBC % 0, Sodium 135, Potassium 4.3, Chloride 93 L, Carbon Dioxide 30.9, Anion Gap 11, BUN 10, Creatinine 0.55 L, Estim Creat Clear Calc 150.78, Est GFR (MDRD) Non-Af 104, BUN/Creatinine Ratio 18.8, Glucose 283 H, Calcium 8.9 02/26/25 07:50: POC Glucose 257 H 02/26/25 11:59: POC Glucose 249 H Microbiology: Microbiology 02/25/25 00:35 Sputum, Expectorated/Coughed Gram Stain - Final 02/25/25 00:35 Sputum, Expectorated/Coughed Respiratory Culture - Preliminary Gram positive mandy 02/25/25 05:50 Nasal Secretion MRSA (PCR) - Final 02/25/25 06:10 Stool Stool Occult Blood (SAVANNAH) - Final Occult Blood Positive 02/24/25 11:33 Mucosa - Nose Respiratory Panel (PCR) - Final RSV B 02/24/25 04:10 Mucosa - Nose SARS-CoV-2, Influenza & RSV (PCR) - Final RSV ABG: ABG 02/24/25 11:23 Specimen Type ART Sample Site L RADIAL pH 7.36 Bicarbonate Actual 36.5 H Total CO2 39 Base Excess 11 H O2 Saturation 93 L O2 % 28.0 ABG pCO2 65.3 H ABG pO2 72 L Bi Test POS O2 Delivery Device Bi Pap D/C Instructions Discharge Diet: Carb Control Diet DC O2, CPAP, BIPAP Needs Home O2 Discharge instructions: Yes Type of respiratory needs?: Oxygen Oxygen frequency: At rest (5) and With Ambulation Oxygen liters per minute during Ambulation: 3 DC home with Oxygen: Yes Home O2 MD Review: I have reviewed the oxygen testing, and the patient qualifies for home oxygen equipment and portability. The patient is mobile in the home and the community. Meaningful Use Info Meaningful Use Meaningful Use Diagnoses (Choose all that apply): None applicable Ischemic Stroke Statin Dosing Therapy Reference: STATIN DOSE THERAPY REFERENCE: * Patients > 75 years receive moderate or high dose statin therapy. * Patients 75 years or YOUNGER should receive HIGH intensity statin dose unless contraindicated. You will be required to document reason for non-treatment if statin daily dose does not meet guidelines. HIGH DOSE STATIN THERAPY DAILY Atorvastatin > than or = to 40 mg Rosuvastatin > than or = to 20 mg Amlodipine + Atorvastatin > than or = to 2.5/40 mg Ezetimibe + Simvastatin 10/80 mg Simvastatin 80mg Discharge Plan Admission Admit Date/Time: 02/24/25 06:12 Primary Reason for Your Visit: Shortness of breath Attending Provider: Jenni Swartz Primary Care Provider: Cristal Wolf Consulting Providers: Jessica Rebolledo Instructions Patient Instructions: RSV (Respiratory Syncytial Virus) Additional Instructions / Restrictions: DISCHARGE INSTRUCTIONS PLEASE READ *Please take this with you to your next doctors appointment* -You have been diagnosed with RSV which caused breathing problems for you -You will be discharged on a prednisone taper: -60 mg daily x3 days -50mg daily x3 days -40mg daily x3 days -30mg daily x3 days -20mg daily x3 days -10mg daily x3 days - You will also be discharged on doxycycline 100 mg twice daily for 5 days -Resume your home medications -It will be very important that you follow with your primary care physician to obtain a new CPAP or BiPAP or to have updated sleep study if needed to obtain a new machine as this is unable to be coordinated through the hospital -You will need to follow-up with Dr. Park with GI in his office upon discharge due to the microscopic blood seen in your stool, your blood counts remained stable so it is reasonable to follow-up on an outpatient basis. Please call his office to schedule an appointment (ph. [phone]) -Would recommend lab work (CBC) to check your hemoglobin in 3-5 days through your primary care physician's office. Please call their office upon discharge to obtain order for lab work. -Please call your primary care provider's office upon discharge to schedule a hospital follow up within 1 week. -For any concerning signs or symptoms please call 911 or proceed to the nearest emergency department Discharge Orders/Prescriptions Prescriptions: New prednisone 20 mg Tablet See Taper PO BREAKFAST Qty: 32 0RF Taper: Prednisone Taper 60 mg WITH BREAKFAST for 3 Days and 0 Hour 50 mg WITH BREAKFAST for 3 Days and 0 Hour 40 mg WITH BREAKFAST for 3 Days and 0 Hour 30 mg WITH BREAKFAST for 3 Days and 0 Hour 20 mg WITH BREAKFAST for 3 Days and 0 Hour 10 mg WITH BREAKFAST for 3 Days and 0 Hour doxycycline hyclate 100 mg capsule 100 mg PO BID 5 Days Qty: 10 0RF Continued omeprazole 40 mg capsule,delayed release(DR/EC) 40 mg PO DAILY oxybutynin chloride 10 mg tablet extended release 24hr 15 mg PO DAILY Invega Sustenna 117 mg/0.75 mL syringe 117 mg IM Q21D pregabalin 150 mg capsule 150 mg PO TID ergocalciferol (vitamin D2) [Vitamin D2] 1,250 mcg (50,000 unit) capsule 50,000 unit PO MOTH insulin lispro 100 unit/mL insulin pen See Rx Instructions subcut QAC Rx Instructions: 14 units with breakfast ,16units with lunch, 24units with diner bupropion HCl 300 MG tablet extended release 24 hr 450 mg PO DAILY Patient Comments: DEPRESSION albuterol sulfate 1 INHALER inhaler 2 puff INHALATION Q4H PRN (Reason: Sob &/Or Wheezing) dicyclomine 10 MG capsule 20 mg PO TIDAC Qty: 20 0RF fluticasone propionate 1 SPRAY spray,suspension 2 spray NASAL DAILY escitalopram oxalate 10 MG tablet 20 mg PO DAILY tizanidine 4 MG capsule 4 mg PO BID PRN (Reason: Muscle Spasm) aspirin 81 MG tablet,chewable 81 mg PO DAILY@0800 0RF insulin glargine [Lantus Solostar U-100 Insulin] 100 unit/mL (3 mL) insulin pen 74 unit SUBCUT QHS cetirizine [Zyrtec] 10 mg Tablet 10 mg PO DAILY triamcinolone acetonide 0.1 % Cream 1 applic TOPICAL TID PRN (Reason: Rash) primidone 250 mg Tablet 750 mg PO QHS lorazepam [Ativan] 0.5 mg Tablet 0.5 - 1 mg PO BID PRN (Reason: Panic Attack(S)) hyoscyamine sulfate [Levsin] 0.125 mg Tablet 0.125 mg PO Q6H PRN (Reason: IBS) buspirone 10 mg Tablet 20 mg PO TID colchicine 0.6 mg Tablet 0.6 mg PO DAILY hydroxyzine pamoate [Vistaril] 25 mg Capsule 25 - 75 mg PO BID PRN (Reason: Itching) guaifenesin [Mucinex] 600 mg Tablet Extended Release 12hr 1,200 mg PO BID PRN (Reason: Cough) fluticasone propion-salmeterol 500-50 mcg/dose blister with device 1 inh INHALATION BID lactulose 10 gram/15 mL solution 60 ml PO BID PRN (Reason: Constipation) naratriptan 2.5 mg tablet See Rx Instructions .ROUTE .COMPLEX Rx Instructions: take 1 tab at onset of headache; if no relief may repeat 1 tab after at least 4 hrs; max = 2 tabs/24 hrs ondansetron 4 MG tablet 4 mg PO Q8H PRN (Reason: Nausea) lisinopril 10 mg tablet 10 mg PO BID trazodone 150 mg tablet 150 mg PO QHS bisacodyl [Gentle Laxative (bisacodyl)] 5 mg tablet,delayed release (DR/EC) 5 mg PO QHS PRN (Reason: constipation) 5 Days Qty: 10 0RF albuterol sulfate 2.5 mg /3 mL (0.083 %) solution for nebulization 2.5 mg inhalation Q6H PRN (Reason: shortness of breath or wheezing) Patient Comments: [NO ORIGINAL SIG] cholecalciferol (vitamin D3) 1,250 mcg (50,000 unit) capsule 1,250 mcg PO QWEEK Ozempic 1 mg/dose (4 mg/3 mL) pen injector 1 mg subcut QWEEK nadolol 80 mg tablet 80 mg PO BID Patient Comments: BLOOD PRESSURE Referrals / Follow Up: Cristal Wolf MD [Primary Care Provider] - 03/10/25 10:00 am Héctor Park DO [Med Staff - Active Staff] - 03/05/25 9:30 am (-You will need to follow-up with Dr. Park with GI in his office upon discharge due to the microscopic blood seen in your stool, your blood counts remained stable so it is reasonable to follow-up on an outpatient basis. Please call his office to schedule an appointment (ph. [phone])) Disposition Disposition (needs filled in before D/C Order can be placed): Home Health Service Charges/Coding Visit Charges Inpatient E&M: 70911 Disch Hosp >30min
--- NOTE | 2025-02-26 14:58 | DCINST_ITS ---
Discharge Instructions Diet Discharge Diet: Carb Control Diet DC O2, CPAP, BIPAP needs Home O2 Discharge instructions: Yes Type of respiratory needs?: Oxygen Oxygen frequency: At rest (5) and With Ambulation Oxygen liters per minute during Ambulation: 3 Follow Up Care Test Results: Test results from this visit will be discussed in further detail at your follow- up appointment, if applicable. Discharge Plan Admission Admit Date/Time: 02/24/25 06:12 Primary Reason for Your Visit: Shortness of breath Attending Provider: Jenni Swartz Primary Care Provider: Cristal Wolf Consulting Providers: Jessica Rebolledo Instructions Patient Instructions: RSV (Respiratory Syncytial Virus) Additional Instructions / Restrictions: DISCHARGE INSTRUCTIONS PLEASE READ *Please take this with you to your next doctors appointment* -You have been diagnosed with RSV which caused breathing problems for you -You will be discharged on a prednisone taper: -60 mg daily x3 days -50mg daily x3 days -40mg daily x3 days -30mg daily x3 days -20mg daily x3 days -10mg daily x3 days - You will also be discharged on doxycycline 100 mg twice daily for 5 days -Resume your home medications -It will be very important that you follow with your primary care physician to obtain a new CPAP or BiPAP or to have updated sleep study if needed to obtain a new machine as this is unable to be coordinated through the hospital -You will need to follow-up with Dr. Park with GI in his office upon discharge due to the microscopic blood seen in your stool, your blood counts remained stable so it is reasonable to follow-up on an outpatient basis. Please call his office to schedule an appointment (ph. [phone]) -Would recommend lab work (CBC) to check your hemoglobin in 3-5 days through your primary care physician's office. Please call their office upon discharge to obtain order for lab work. -Please call your primary care provider's office upon discharge to schedule a hospital follow up within 1 week. -For any concerning signs or symptoms please call 911 or proceed to the nearest emergency department Discharge Orders/Prescriptions Prescriptions: New prednisone 20 mg Tablet See Taper PO BREAKFAST Qty: 32 0RF Taper: Prednisone Taper 60 mg WITH BREAKFAST for 3 Days and 0 Hour 50 mg WITH BREAKFAST for 3 Days and 0 Hour 40 mg WITH BREAKFAST for 3 Days and 0 Hour 30 mg WITH BREAKFAST for 3 Days and 0 Hour 20 mg WITH BREAKFAST for 3 Days and 0 Hour 10 mg WITH BREAKFAST for 3 Days and 0 Hour doxycycline hyclate 100 mg capsule 100 mg PO BID 5 Days Qty: 10 0RF Continued omeprazole 40 mg capsule,delayed release(DR/EC) 40 mg PO DAILY oxybutynin chloride 10 mg tablet extended release 24hr 15 mg PO DAILY Invega Sustenna 117 mg/0.75 mL syringe 117 mg IM Q21D pregabalin 150 mg capsule 150 mg PO TID ergocalciferol (vitamin D2) [Vitamin D2] 1,250 mcg (50,000 unit) capsule 50,000 unit PO MOTH insulin lispro 100 unit/mL insulin pen See Rx Instructions subcut QAC Rx Instructions: 14 units with breakfast ,16units with lunch, 24units with diner bupropion HCl 300 MG tablet extended release 24 hr 450 mg PO DAILY Patient Comments: DEPRESSION albuterol sulfate 1 INHALER inhaler 2 puff INHALATION Q4H PRN (Reason: Sob &/Or Wheezing) dicyclomine 10 MG capsule 20 mg PO TIDAC Qty: 20 0RF fluticasone propionate 1 SPRAY spray,suspension 2 spray NASAL DAILY escitalopram oxalate 10 MG tablet 20 mg PO DAILY tizanidine 4 MG capsule 4 mg PO BID PRN (Reason: Muscle Spasm) aspirin 81 MG tablet,chewable 81 mg PO DAILY@0800 0RF insulin glargine [Lantus Solostar U-100 Insulin] 100 unit/mL (3 mL) insulin pen 74 unit SUBCUT QHS cetirizine [Zyrtec] 10 mg Tablet 10 mg PO DAILY triamcinolone acetonide 0.1 % Cream 1 applic TOPICAL TID PRN (Reason: Rash) primidone 250 mg Tablet 750 mg PO QHS lorazepam [Ativan] 0.5 mg Tablet 0.5 - 1 mg PO BID PRN (Reason: Panic Attack(S)) hyoscyamine sulfate [Levsin] 0.125 mg Tablet 0.125 mg PO Q6H PRN (Reason: IBS) buspirone 10 mg Tablet 20 mg PO TID colchicine 0.6 mg Tablet 0.6 mg PO DAILY hydroxyzine pamoate [Vistaril] 25 mg Capsule 25 - 75 mg PO BID PRN (Reason: Itching) guaifenesin [Mucinex] 600 mg Tablet Extended Release 12hr 1,200 mg PO BID PRN (Reason: Cough) fluticasone propion-salmeterol 500-50 mcg/dose blister with device 1 inh INHALATION BID lactulose 10 gram/15 mL solution 60 ml PO BID PRN (Reason: Constipation) naratriptan 2.5 mg tablet See Rx Instructions .ROUTE .COMPLEX Rx Instructions: take 1 tab at onset of headache; if no relief may repeat 1 tab after at least 4 hrs; max = 2 tabs/24 hrs ondansetron 4 MG tablet 4 mg PO Q8H PRN (Reason: Nausea) lisinopril 10 mg tablet 10 mg PO BID trazodone 150 mg tablet 150 mg PO QHS bisacodyl [Gentle Laxative (bisacodyl)] 5 mg tablet,delayed release (DR/EC) 5 mg PO QHS PRN (Reason: constipation) 5 Days Qty: 10 0RF albuterol sulfate 2.5 mg /3 mL (0.083 %) solution for nebulization 2.5 mg inhalation Q6H PRN (Reason: shortness of breath or wheezing) Patient Comments: [NO ORIGINAL SIG] cholecalciferol (vitamin D3) 1,250 mcg (50,000 unit) capsule 1,250 mcg PO QWEEK Ozempic 1 mg/dose (4 mg/3 mL) pen injector 1 mg subcut QWEEK nadolol 80 mg tablet 80 mg PO BID Patient Comments: BLOOD PRESSURE Referrals / Follow Up: Cristal Wolf MD [Primary Care Provider] - 03/10/25 10:00 am Héctor Park DO [Med Staff - Active Staff] - 03/05/25 9:30 am (-You will need to follow-up with Dr. Park with GI in his office upon discharge due to the microscopic blood seen in your stool, your blood counts remained stable so it is reasonable to follow-up on an outpatient basis. Please call his office to schedule an appointment (ph. [phone])) Disposition Disposition (needs filled in before D/C Order can be placed): Home Health Service
--- NOTE | 2025-02-26 15:00 | CASEMGMT ---
Patient has order for discharge. Patient transferred and ambulated 50ft SBA with therapy. RN CM in to discuss needs at discharge, father at bedside. Patient to return home with [facility] for usp. Patient states she is at baseline and RN CM encouraged patient to keep moving and walking at home. Patient states she does not have oxygen tank for at discharge. RN CM reached out to [facility] [place] and ok to give tank from stock for at discharge. RN CM provided patient with portable tank. Patient and father denied further questions or concerns. Discharge plan updated. [place] transportation planning technician notified to update [facility] of discharge.
[2025-02-26 15:15] LABS: Bedside Glucose 257 mg/dL (74-106)
[2025-02-26 15:15] LABS: Bedside Glucose 249 mg/dL (74-106)
--- NOTE | 2025-02-26 15:16 | CASEMGMT ---
Discharge Planning Discharge Instructions sent to [place]. Nat [facility] DC Planning Asst.
--- NOTE | 2025-02-26 15:26 | PHA.DC.MC.R ---
Pharmacy [facility] has performed discharge medication reconciliation and counseling for this patient. Patient counseled via telephone due to RSV precautions. 1. DOXYCYCLINE 100MG PO BID X 5 DAYS 2. PREDNISONE 60MG PO BREAKFAST X 3 DAYS, THEN 50MG X 3 DAYS, THEN 40MG X 3 DAYS, THEN 30MG X 3 DAYS, THEN 20MG X 3 DAYS, THEN 10MG X 3 DAYS The patient's discharge medication list was reviewed for discrepancies and discrepancies were resolved. The patient was counseled on the following discharge medications and changes in medications for homegoing were reviewed. The Reason for Use, instructions for use, and potential side effects were reviewed for all new medications. The patient's questions regarding all of their medications were answered. The patient was able to verbally demonstrate an understanding of their discharge medications. Medications at Discharge Home Medications bupropion HCl 300 mg 24 hr tablet, extended release 450 mg PO DAILY mental health 03/05/17 albuterol sulfate 90 mcg/actuation aerosol inhaler 2 puff inhalation Q4H PRN Sob &/Or Wheezing 05/29/18 dicyclomine 10 mg capsule 20 mg (2 x 10 mg) PO TIDAC stomach #20 caps 07/28/19 escitalopram oxalate 10 mg tablet 20 mg PO DAILY mental health 08/04/19 fluticasone propionate 50 mcg/actuation nasal spray,suspension 2 spray NASAL DAILY allergies 08/04/19 tizanidine 4 mg capsule 4 mg PO BID PRN Muscle Spasm 07/15/20 aspirin 81 mg chewable tablet 81 mg PO DAILY@0800 heart health 07/17/20 nadolol 80 mg tablet 80 mg PO BID high blood pressure 07/08/21 buspirone 10 mg tablet 20 mg PO TID mood 01/25/22 cetirizine 10 mg tablet (Zyrtec) 10 mg PO DAILY allergies 01/25/22 colchicine 0.6 mg tablet 0.6 mg PO DAILY gout 01/25/22 guaifenesin 600 mg tablet, extended release 12 hr (Mucinex) 1,200 mg PO BID PRN Cough 01/25/22 hydroxyzine pamoate 25 mg capsule (Vistaril) 25 - 75 mg PO BID PRN Itching 01/25/22 hyoscyamine sulfate 0.125 mg tablet (Levsin) 0.125 mg PO Q6H PRN IBS 01/25/22 lorazepam 0.5 mg tablet (Ativan) 0.5 - 1 mg PO BID PRN Panic Attack(S) 01/25/22 primidone 250 mg tablet 750 mg PO QHS seizures 01/25/22 triamcinolone acetonide 0.1 % topical cream 1 applic topical TID PRN Rash 01/25/22 fluticasone 500 mcg-salmeterol 50 mcg/dose blistr powdr for inhalation 1 inh inhalation BID breathing 05/02/22 insulin glargine 100 unit/mL (3 mL) subcutaneous pen (Lantus Solostar U-100 Insulin) 74 unit subcut QHS diabetes 05/02/22 omeprazole 40 mg capsule,delayed release 40 mg PO DAILY gerd 05/02/22 oxybutynin chloride 10 mg tablet,extended release 24 hr 15 mg PO DAILY bladder 05/02/22 paliperidone palmitate 117 mg/0.75 mL intramuscular syringe (Invega Sustenna) 117 mg IM Q21D mental disorder 05/02/22 ergocalciferol (vitamin D2) 1,250 mcg (50,000 unit) capsule (Vitamin D2) 50,000 unit PO [facility] 08/10/22 insulin lispro 100 unit/mL subcutaneous pen See Rx Instructions subcut QAC DM 08/10/22 lactulose 10 gram/15 mL oral solution 60 ml PO BID PRN Constipation 08/10/22 pregabalin 150 mg capsule 150 mg PO TID pain 08/10/22 lisinopril 10 mg tablet 10 mg PO BID blood pressure 10/03/24 naratriptan 2.5 mg tablet See Rx Instructions PO .COMPLEX headache 10/03/24 ondansetron 4 mg disintegrating tablet 4 mg PO Q8H PRN Nausea 10/03/24 trazodone 150 mg tablet 150 mg PO QHS sleep 10/03/24 bisacodyl 5 mg tablet,delayed release (Gentle Laxative (bisacodyl)) 5 mg PO QHS PRN constipation 5 days #10 tabs 10/30/24 albuterol sulfate 2.5 mg/3 mL (0.083 %) solution for nebulization 2.5 mg inhalation Q6H PRN shortness of breath or wheezing 02/25/25 cholecalciferol (vitamin D3) 1,250 mcg (50,000 unit) capsule 1,250 mcg PO QWEEK [facility] 02/25/25 semaglutide 1 mg/dose (4 mg/3 mL) subcutaneous pen injector (Ozempic) 1 mg subcut QWEEK weight loss 02/25/25 doxycycline hyclate 100 mg capsule 100 mg PO BID 5 days #10 caps 02/26/25 prednisone 20 mg tablet See Taper PO BREAKFAST #32 tabs 02/26/25
[2025-02-26 17:50] LABS: Allen Test POS; Blood Gas Specimen Type ART; SITE L RADIAL
[2025-02-26 17:51] LABS: O2 Delivery Device Bi Pap
[2025-02-26 17:52] LABS: Base Excess 11 mmol/L (-2 to +2); Bicarbonate 36.5 mmol/L (22-26); PO2 72 mmHG (75-100); SO2 93 % (95-99); Total Carbon Dioxide 39 mmol/L; pCO2 65.3 mmHg (35-45); pH 7.36 (7.35-7.45)
[2025-02-27 01:46] LABS: Red Blood Cells-Urine 0 SEEN /hpf (0-5)
[2025-02-27 03:47] LABS: Color, Urine Yellow (Yellow); Glucose, Dipstick 250 mg/dl (Normal); Ketone-Dipstick Negative (Negative); Leukocyte Esterase-Dipstick Negative /ul (Negative); Nitrite-Dipstick Negative (Negative); Occult Blood-Urine 10 /ul (Negative); Protein-Dipstick 100 mg/dl (Negative); Specific Gravity, Urine 1.015 (1.002-1.030); Urine Bilirubin Dipstick Negative (Negative); Urine Clarity Clear (Clear); Urine Urobilinogen Normal (Normal)
[2025-02-27 04:01] LABS: Bacteria RARE /hpf (None Seen); Mucous, Urine 1+ /hpf (<or=2+); Squamous Epithelial Cells - UA 5-10 SEEN /hpf (5-10); White Blood Cells 5-10 SEEN /hpf (0-5); Yeast-Urine 2+ /hpf (None Seen)
== END 2025-02-26 15:33 | disposition home health service (06) | DRG 133 ==
LOC: ED 04:50 → PCU 06:42
PROVIDERS: Admitting Provider Family Medicine; Emergency Provider Emergency Medicine; PCP Internal Medicine; Visit Provider Internal Medicine
DX: J96.22 Acute and chronic respiratory failure with hypercapnia (principal); E87.29 Other acidosis; F25.9 Schizoaffective disorder, unspecified; E11.40 Type 2 diabetes mellitus with diabetic neuropathy, unspecified; J44.0 Chronic obstructive pulmonary disease with (acute) lower respiratory infection; D64.9 Anemia, unspecified; G40.909 Epilepsy, unspecified, not intractable, without status epilepticus; E66.01 Morbid (severe) obesity due to excess calories; I10 Essential (primary) hypertension; J44.1 Chronic obstructive pulmonary disease with (acute) exacerbation; J96.21 Acute and chronic respiratory failure with hypoxia; Z79.4 Long term (current) use of insulin; E78.5 Hyperlipidemia, unspecified; G47.33 Obstructive sleep apnea (adult) (pediatric); K21.9 Gastro-esophageal reflux disease without esophagitis; F31.9 Bipolar disorder, unspecified; M10.9 Gout, unspecified; J20.5 Acute bronchitis due to respiratory syncytial virus; Z68.43 Body mass index [BMI] 50.0-59.9, adult; F41.9 Anxiety disorder, unspecified; I25.2 Old myocardial infarction; I87.2 Venous insufficiency (chronic) (peripheral); G89.29 Other chronic pain; Z79.84 Long term (current) use of oral hypoglycemic drugs; Z90.710 Acquired absence of both cervix and uterus; Z79.51 Long term (current) use of inhaled steroids; F90.9 Attention-deficit hyperactivity disorder, unspecified type; F43.10 Post-traumatic stress disorder, unspecified; Z91.199 Patient's noncompliance with other medical treatment and regimen due to unspecified reason; Z99.89 Dependence on other enabling machines and devices
CPT/HCPCS: 36415; 36600; 71045; 80048; 80053; 81001; 82140; 82274; 82728; 82803; 82962; 83540; 83550; 83735; 83880; 84145; 84484; 85014; 85018; 85025; 87070; 87077; 87086; 87088; 87186; 87205; 87631; 87633; 87641; 93005; 94002; 94003; 94640; 97110; 97116; 97162; 97166; 97530; 97535; 99285; A4216; J2916

== ENCOUNTER 2025-03-01 12:07 | Observation (INO) | payer MEDICAID, SELFPAY ==
[2025-03-01] VITALS (10 sets, daily range): BP systolic 134–207; BP diastolic 78–121; PULSE 64–89; RESP 17–24; TEMP 36.4–37.2; O2SAT 94–97; BMI 48.4
--- NOTE | 2025-03-01 12:30 | EDS_ITS ---
HPI <HUMZA Conner - Last Filed: 03/01/25 15:14> History of Present Illness Chief Complaint: Fall Narrative Narrative: 59-year-old female with PMH of DM2, oxygen dependent COPD presents with generalized weakness and failure to thrive. She has been sick for about 10 days with upper respiratory symptoms and shortness of breath. She was admitted to [facility] on 02/24 through 02/26 for RSV and COPD exacerbation. She declined SNF placement and was discharged on doxycycline and prednisone but states she has continued to decline. Her cough and shortness of breath are not worse and she is still wearing 3.5 L O2?she wore 2.5 L prior to this illness. However she feels very weak, dehydrated, and is not getting around her home well. She lives alone and her dad has been trying to help her. She has fallen twice, most recently this morning when trying to ambulate due to weakness. She states she hit the back of her head but denies loss of consciousness. She is not on blood thinners. She denies injury. [facility] <HUMZA Conner - Last Filed: 03/01/25 15:14> [facility] Medical History Bipolar disorder Non-smoker CPAP (continuous positive airway pressure) dependence On home oxygen therapy Myocardial infarct Hypertension Seizures History of ESBL E. coli infection Schizophrenia Diabetes PTSD (post-traumatic stress disorder) Depression Schizo affective schizophrenia Other specified peripheral vascular diseases Essential hypertension Chest pain Diabetes mellitus type 2, uncontrolled, with complications Back pain Asthma Knee pain Migraines Fatigue Hemorrhoids COPD (chronic obstructive pulmonary disease) Arthritis Pain syndrome, chronic Bipolar disorder Obstructive sleep apnea Stasis dermatitis of both legs Venous insufficiency of both lower extremities Super obese Open wound of left lower extremity GERD (gastroesophageal reflux disease) Benign hypertension ADHD (attention deficit hyperactivity disorder) Home Medications ?Medication ?Instructions ?Recorded ?Last Taken ?Type bupropion HCl 300 mg 24 hr tablet, 450 mg PO DAILY [employer] 03/05/17 10/03/24 History extended release albuterol sulfate 90 mcg/actuation 2 puff inhalation Q 4H PRN Sob &/Or 05/29/18 07/07/18 History aerosol inhaler Wheezing dicyclomine 10 mg capsule 20 mg (2 x 10 mg) PO TIDAC s tomach 07/28/19 10/03/24 Rx #20 caps fluticasone propionate 50 2 spray NASAL DAILY allergie s 08/04/19 10/03/24 History mcg/actuation nasal spray,suspension tizanidine 4 mg capsule 4 mg PO BID PRN Muscle Spasm 07/15/20 Unknown History aspirin 81 mg chewable tablet 81 mg PO DAILY@0800 hear t health 07/17/20 10/03/24 Rx nadolol 80 mg tablet 80 mg PO BID high blood pres sure 07/08/21 10/03/24 History buspirone 10 mg tablet 20 mg PO TID mood 01/25/22 1 12/03/23 History cetirizine 10 mg tablet (Zyrtec) 10 mg PO DAILY allerg ies 01/25/22 10/03/24 History colchicine 0.6 mg tablet 0.6 mg PO DAILY gout 2 10/03/24 History guaifenesin 600 mg tablet, 1,200 mg PO BID PRN Cough 0 01/25/22 Unknown History extended release 12 hr (Mucinex) hydroxyzine pamoate 25 mg capsule 25 - 75 mg PO BID MO N Itching 01/25/22 Unknown History (Vistaril) hyoscyamine sulfate 0.125 mg 0.125 mg PO Q6H PRN IBS 0 01/25/22 Unknown History tablet (Levsin) lorazepam 0.5 mg tablet (Ativan) 0.5 - 1 mg PO BID PRN Panic 01/25/22 Unknown History Attack(S) primidone 250 mg tablet 750 mg PO QHS seizures 01/2510/03/24 History triamcinolone acetonide 0.1 % 1 applic topical TID PRN Rash 01/25/22 Unknown History topical cream fluticasone 500 mcg-salmeterol 50 1 inh inhalation BID breathing 05/02/22 10/03/24 History mcg/dose blistr powdr for inhalation insulin glargine 100 unit/mL (3 74 unit subcut QHS deshaun betes 05/02/22 10/02/24 History mL) subcutaneous pen (Lantus Solostar U-100 Insulin) omeprazole 40 mg capsule,delayed 40 mg PO DAILY gerd 0 05/02/22 10/03/24 History release oxybutynin chloride 10 mg 15 mg PO DAILY bladder 05/0210/03/24 History tablet,extended release 24 hr paliperidone palmitate 117 mg/0.75 117 mg IM Q21D ment al disorder 05/02/22 09/25/24 History mL intramuscular syringe (Invega Sustenna) ergocalciferol (vitamin D2) 1,250 50,000 unit PO QMONT H bone health 08/10/22 10/03/24 History mcg (50,000 unit) capsule (Vitamin D2) insulin lispro 100 unit/mL See Rx Instructions subcut QAC DM 08/10/22 10/03/24 History subcutaneous pen lactulose 10 gram/15 mL oral 60 ml PO BID PRN Constipa tion 08/10/22 Unknown History solution pregabalin 150 mg capsule 150 mg PO TID pain 08/10/22 10/03/24 History lisinopril 10 mg tablet 10 mg PO BID blood pressure 10/03/24 Unknown History naratriptan 2.5 mg tablet See Rx Instructions PO .COMP ELLEN 10/03/24 Unknown History headache ondansetron 4 mg disintegrating 4 mg PO Q8H PRN Nausea 10/03/24 Unknown History tablet trazodone 150 mg tablet 150 mg PO QHS sleep 10/03/24 10/02/24 History bisacodyl 5 mg tablet,delayed 5 mg PO QHS PRN constipa tion 5 10/30/24 Unknown Rx release (Gentle Laxative days #10 tabs (bisacodyl)) albuterol sulfate 2.5 mg/3 mL 2.5 mg inhalation Q6H MO N 02/25/25 Unknown History (0.083 %) solution for nebulization shortness of breat h or wheezing cholecalciferol (vitamin D3) 1,250 1,250 mcg PO QWEEK bone health 02/25/25 Unknown History mcg (50,000 unit) capsule semaglutide 1 mg/dose (4 mg/3 mL) 1 mg subcut QWEEK we ight loss 02/25/25 Unknown History subcutaneous pen injector (Ozempic) doxycycline hyclate 100 mg capsule 100 mg PO BID 5 day s #10 caps 02/26/25 Unknown Rx prednisone 20 mg tablet See Taper PO BREAKFAST #32 t abs 02/26/25 Unknown Rx escitalopram oxalate 20 mg tablet 20 mg PO DAILY [facility] 03/01/25 Unknown History Allergy/AdvReac Type Severity Reaction Status Date / Time meloxicam Allergy Severe Anaphylaxis Verified 03/01/25 12:26 vancomycin Allergy Severe BURNING Verified 03/01/25 12:26 RED RASH ON LEGGS amlodipine (From Norvasc) Allergy Swelling Verified 03/01/25 12:26 cefazolin sodium (From Ancef) Allergy Hives Verified 03/01/25 12:26 fexofenadine (From Nia) Allergy Shortness Verified 03/01/25 12:26 of breath nitrofurantoin (From Allergy Hives Verified 03/01/25 12:26 Macrobid) peanut Allergy Shortness Verified 03/01/25 12:26 of breath Penicillins Allergy Hives Verified 03/01/25 12:26 sumatriptan (From Imitrex) Allergy Shortness Verified 03/01/25 12:26 of breath adhesive AdvReac BURNING Verified 03/01/25 12:26 amitriptyline (From Elavil) AdvReac Other Verified 03/01/25 12:26 clindamycin AdvReac Diarrhea Verified 03/01/25 12:26 ziprasidone (From Geodon) AdvReac NEEDS Verified 03/01/25 12:26 FOLLOW-UP Family History Father CVA (cerebral vascular accident) Heart disease Mother Heart disease Surgical History History of elbow surgery (~06/2020) History of arthroscopic knee surgery History of left heart catheterization (07/16/20) Kidney stone H/O hernia repair Hx of hysterectomy Hx of section Social History household members: spouse housing: house Smoking Status: Never smoker alcohol intake: current alcohol intake frequency: holidays/special occasions only Alcohol type: wine substance use type: does not use caffeine: Yes (occasionally) ROS <HUMZA Conner - Last Filed: 03/01/25 15:14> ROS ED ROS Narrative Constitutional: Negative for fever. Positive for malaise. CVS: Negative for chest pain. Respiratory: Positive for cough, shortness of breath. GI: Negative for abdominal pain, nausea, vomiting, diarrhea. EXAM <HUMZA Conner - Last Filed: 03/01/25 15:14> Physical Exam Narrative Exam Narrative: CONST: Patient sitting in no acute distress. EYES: Normal inspection. ENT: Normal inspection, slightly dry mucous membranes. NECK: Normal inspection. RESP: On 3 L nasal cannula, diminished lung sounds. CVS: Regular rate and rhythm, no murmur, no gallop. ABD: Soft and nontender, no guarding or rebound, nondistended. SKIN: Color normal, no rash, warm, dry, intact. EXTREMITIES: Normal appearance, no pedal edema. NEURO: Alert and answering questions appropriately. PSYCH: Normal affect. Const Vital Signs: 03/01/25 12:17 03/01/25 12:21 03/01/25 12:41 Temperature 98.7 F Temperature Source Oral Pulse Rate 78 68 Respiratory Rate 18 24 H Respiratory Effort Short of Breath Labored Blood Pressure 195/101 H Blood Pressure Mean 132 Pulse Ox 97 Oxygen Delivery Method Nasal Cannula Nasal Cannula Oxygen Flow Rate (L/min) 3 3 03/01/25 12:43 03/01/25 13:20 03/01/25 14:08 Temperature 98.9 F 98.9 F Temperature Source Oral Oral Pulse Rate 89 64 Respiratory Rate 18 20 H Respiratory Effort Blood Pressure 137/121 H 134/98 H Blood Pressure Mean 126 110 Pulse Ox 96 94 95 Oxygen Delivery Method Nasal Cannula Room Air Room Air Oxygen Flow Rate (L/min) 3.5 <Dr. Oni Lester MD - Last Filed: 03/01/25 14:25> Physical Exam Const Vital Signs: 03/01/25 12:17 03/01/25 12:21 03/01/25 12:41 Temperature 98.7 F Temperature Source Oral Pulse Rate 78 68 Respiratory Rate 18 24 H Respiratory Effort Short of Breath Labored Blood Pressure 195/101 H Blood Pressure Mean 132 Pulse Ox 97 Oxygen Delivery Method Nasal Cannula Nasal Cannula Oxygen Flow Rate (L/min) 3 3 03/01/25 12:43 03/01/25 13:20 03/01/25 14:08 Temperature 98.9 F 98.9 F Temperature Source Oral Oral Pulse Rate 89 64 Respiratory Rate 18 20 H Respiratory Effort Blood Pressure 137/121 H 134/98 H Blood Pressure Mean 126 110 Pulse Ox 96 94 95 Oxygen Delivery Method Nasal Cannula Room Air Room Air Oxygen Flow Rate (L/min) 3.5 MDM <HUMZA Conner - Last Filed: 03/01/25 15:14> [facility] Narrative Medical decision making narrative: 59-year-old female with oxygen dependent COPD, diabetes, multiple comorbidities was recently admitted for RSV/COPD exacerbation and states she has declined over the last few days. She has generalized weakness and has fallen twice without injuries. She is awake alert in no distress. BP is 195/101, HR 78, RR 18, 97% on 3 L, afebrile. Lung sounds are very diminished so I ordered DuoNebs and IV Solu-Medrol 125 mg. CXR notes pulmonary vascular congestion but there is no acute infiltrate. Labs show normal WBC of 7.5 and stable hemoglobin at 9.8. Chemistry overall unremarkable. Glucose is 309 without DKA. Overall she has failure to thrive due to recent illness and is weak with recurrent falls. I discussed the case with the hospitalist for admission. I have personally performed a face to face assessment of the patient and have reviewed the LILY Note. I performed a substantive portion of the visit including all aspects of the following. My cardoza findings include: History is [59-year-old female history of diabetes COPD on 3 and half liters oxygen at home. Recent admission for COPD exacerbation and RSV. She felt generally weak at home with falls. Did strike her head no LOC no blood thinners. Denies vomiting or fever. Has had some loose stools.] Exam is [59-year-old female sitting upright in bed. Vital signs are stable. Pulse ox is 97% on 3 L. She does not look septic or toxic. HEENT exam pupils round react to light. Active motions are intact. No trauma to her face. No hematoma or laceration to her scalp. Nontender. C-spine and neck nontender. Lungs few scattered expiratory wheezes. No rales or rhonchi. Wet cough. Heart regular rhythm rate about 70. No murmur. Chest wall ribs nontender. Abdomen soft nontender. Back nontender. Moving all 4 extremities. Neurologically she is awake and alert. Answering questions following commands.] Medical Decision Making [59-year-old female COPD with wheezing recent RSV and recent admission. Falls due to generalized weakness. Differential includes COPD flare, pneumonia, infection. Failure to thrive.] Other additions or changes: [None] Lab Data Attestation: I reviewed the patient's lab results. Labs: Laboratory Results - last 24 hr 03/01/25 03/01/25 12:47 13:32 WBC 7.5 RBC 3.90 L Hgb 9.8 L Hct 33.2 L MCV 85.1 MCH 25.1 L MCHC 29.5 L RDW Std Deviation 50.5 H RDW Coeff of Jocy 17.2 H Plt Count 167 MPV 9.9 Immature Gran % (Auto) 0.700 Neut % (Auto) 78.3 H Lymph % (Auto) 13.5 L Webb % (Auto) 7.4 Eos % (Auto) 0.0 Baso % (Auto) 0.1 Absolute Neuts (auto) 5.9 Absolute Lymphs (auto) 1.02 Nucleated RBC % 0 Sodium 137 Potassium 4.8 Chloride 96 L Carbon Dioxide 27.0 Anion Gap 14 BUN 20 H Creatinine 0.72 Estim Creat Clear Calc 112.76 Est GFR (MDRD) Non-Af 95 BUN/Creatinine Ratio 27.9 H Glucose 309 H Calcium 8.6 Urine Color Yellow Urine Clarity Clear Urine pH 6.0 Ur Specific [place] 1.020 Urine Protein 30 H Urine Glucose (UA) 1000 H Urine Ketones 5 H Urine Occult Blood 25 H Urine Nitrite Negative Urine Bilirubin Negative Urine Urobilinogen Normal Ur Leukocyte Esterase Negative Urine RBC 0-5 SEEN Urine WBC 0-5 SEEN Ur Squamous Epith Cells 0-5 SEEN Urine Bacteria RARE Urine Mucus RARE Radiography Diagnostic Testing: Clinical Impression(s) from Imaging Studies Chest X-Ray 03/01/25 13:15 IMPRESSION: Cardiomegaly with pulmonary vascular congestion. Reading Location: [id number] <Dr. Oni Lester MD - Last Filed: 03/01/25 14:25> [facility] MDM Narrative Medical decision making narrative: 59-year-old female with oxygen dependent COPD, diabetes, multiple comorbidities was recently admitted for RSV/COPD exacerbation and states she has declined over the last few days. She has generalized weakness and has fallen twice without injuries. She is awake alert in no distress. BP is 195/101, HR 78, RR 18, 97% on 3 L, afebrile. Lung sounds are very diminished so I ordered DuoNebs and IV Solu-Medrol 125 mg. CXR notes pulmonary vascular congestion but there is no acute infiltrate. Labs show normal WBC of 7.5 and stable hemoglobin at 9.8. Chemistry overall unremarkable. Glucose is 309 without DKA. I have personally performed a face to face assessment of the patient and have reviewed the LILY Note. I performed a substantive portion of the visit including all aspects of the following. My cardoza findings include: History is [59-year-old female history of diabetes COPD on 3 and half liters oxygen at home. Recent admission for COPD exacerbation and RSV. She felt generally weak at home with falls. Did strike her head no LOC no blood thinners. Denies vomiting or fever. Has had some loose stools.] Exam is [59-year-old female sitting upright in bed. Vital signs are stable. Pulse ox is 97% on 3 L. She does not look septic or toxic. HEENT exam pupils round react to light. Active motions are intact. No trauma to her face. No hematoma or laceration to her scalp. Nontender. C-spine and neck nontender. Lungs few scattered expiratory wheezes. No rales or rhonchi. Wet cough. Heart regular rhythm rate about 70. No murmur. Chest wall ribs nontender. Abdomen soft nontender. Back nontender. Moving all 4 extremities. Neurologically she is awake and alert. Answering questions following commands.] Medical Decision Making [59-year-old female COPD with wheezing recent RSV and recent admission. Falls due to generalized weakness. Differential includes COPD flare, pneumonia, infection. Failure to thrive.] Other additions or changes: [None] History & Record Review Discussion w/independent historian: Patient and Family Additional record(s) reviewed:: Prior inpatient record, Prior outpatient record, Prior ED visit, Prior labs and No prior records Lab Data Lab results narrative: CBC shows a white count 7.5. H&H 9.8 and 33.2 which is her baseline. Platelets 167. Electrolytes shows sodium 137. Gap 14. BUN of 20 creatinine 0.7. Glucose 309. UA negative. There is glucose over thousand in her urine. No infection. Chest x-ray chronic changes. Labs: Laboratory Results - last 24 hr 03/01/25 03/01/25 12:47 13:32 WBC 7.5 RBC 3.90 L Hgb 9.8 L Hct 33.2 L MCV 85.1 MCH 25.1 L MCHC 29.5 L RDW Std Deviation 50.5 H RDW Coeff of Jocy 17.2 H Plt Count 167 MPV 9.9 Immature Gran % (Auto) 0.700 Neut % (Auto) 78.3 H Lymph % (Auto) 13.5 L Webb % (Auto) 7.4 Eos % (Auto) 0.0 Baso % (Auto) 0.1 Absolute Neuts (auto) 5.9 Absolute Lymphs (auto) 1.02 Nucleated RBC % 0 Sodium 137 Potassium 4.8 Chloride 96 L Carbon Dioxide 27.0 Anion Gap 14 BUN 20 H Creatinine 0.72 Estim Creat Clear Calc 112.76 Est GFR (MDRD) Non-Af 95 BUN/Creatinine Ratio 27.9 H Glucose 309 H Calcium 8.6 Urine Color Yellow Urine Clarity Clear Urine pH 6.0 Ur Specific [place] 1.020 Urine Protein 30 H Urine Glucose (UA) 1000 H Urine Ketones 5 H Urine Occult Blood 25 H Urine Nitrite Negative Urine Bilirubin Negative Urine Urobilinogen Normal Ur Leukocyte Esterase Negative Urine RBC 0-5 SEEN Urine WBC 0-5 SEEN Ur Squamous Epith Cells 0-5 SEEN Urine Bacteria RARE Urine Mucus RARE Radiography Chest X-Ray - ED: 1 View, Read by ED Physician, Read by Radiologist, Normal, Lungs, Mediastinum, Bony Structures, No Acute Disease, Chronic Changes and Cardiomegaly Diagnostic Testing: Clinical Impression(s) from Imaging Studies Chest X-Ray 03/01/25 13:15 IMPRESSION: Cardiomegaly with pulmonary vascular congestion. Reading Location: [facility] Chest x-ray, portable, single view interpreted by myself and the radiologist. Shows cardiomegaly. Elevated right hemidiaphragm. No acute pneumonia. Discharge Plan Triage Chief Complaint: Fall ED Midlevel Provider: Josee Conn ED Provider: Oni Lester Dx/Rx/DC Orders Clinical Impression: Generalized weakness, COPD (chronic obstructive pulmonary disease), Falls Primary Care Provider: Cristal Wolf
[2025-03-01] MEDS: Ipratropium/Albuterol Sulfate 3 ML AMPUL.NEB INHALATION ×2 (12:40→19:40)
[2025-03-01] MEDS: MethylPREDNISolone 125 MG/2 ML Vial IV (12:50)
[2025-03-01] MEDS: 0.9% Normal Saline (1000mL) 1,000 ML 999 ML IV (12:50)
[2025-03-01 13:06] LABS: Absolute Lymphocyte Count 1.02 X10^3/uL (0.83-4.51); Absolute Neutrophil Count 5.9 X10^3/uL (2.0-7.7); Basophil# 0.01 X10^3/uL; Basophil% 0.1 % (0-1); Hematocrit 33.2 % (37-47); Hemoglobin 9.8 g/dL (12.0-15.0); Lymphocyte # 1.02 X10^3/ul (0.83-4.51); Lymphocyte % 13.5 % (19-41); Mean Corp Hgb Conc 29.5 g/dL (32-36); Mean Corpuscular Hgb 25.1 pg (27.0-32.0); Mean Corpuscular Volume 85.1 fL (81-99); Mean Platelet Vol. 9.9 fl (6.2-12.0); Monocyte# 0.56 X10^3/uL; Monocyte% 7.4 % (0-10); NRBC Flagged by Analyzer 0 % (0-5); Neutrophil % 78.3 % (47-70); Platelet Count 167 K/mm3 (150-450); RBC Distribution Width CV 17.2 % (11.6-14.6); RBC Distribution Width SD 50.5 fl (35.1-43.9); White Blood Count 7.5 K/mm3 (4.4-11.0)
--- NOTE | 2025-03-01 13:15 | RAD_ITS ---
PROCEDURE: CHEST 1 VIEW (PORTABLE) 03/01/2025 REASON FOR EXAM: COUGH TECHNIQUE: Frontal view of the chest. COMPARISON: Chest radiograph 02/24/2025. FINDINGS: Hardware: None. Heart: Heart size is moderately enlarged with pulmonary vascular congestion. Lungs: Low lung volumes. Bibasilar atelectasis/scarring. No obvious pleural effusion. No focal consolidation or pneumothorax. Bones: Degenerative changes are identified within the thoracic spine. RAD/Chest 1 View (Portable) IMPRESSION: Cardiomegaly with pulmonary vascular congestion. Reading Location: [facility]
[2025-03-01 13:17] LABS: Anion Gap 14 (5-15); BUN 20 mg/dL (4-19); BUN/Creat Ratio 27.9 RATIO (10-20); Calcium,Total 8.6 mg/dL (7.6-11.0); Chloride 96 mmol/L (98-108); Creatinine, Serum 0.72 mg/dL (0.70-1.20); EST Glomerular Filtration Rate 95 (>60); Estimated Creatinine Clearance 112.76 ml/min (50-250); Glucose 309 mg/dL (70-99); Potassium 4.8 mmol/L (3.3-5.1); Sodium Level 137 mmol/L (133-145)
[2025-03-01 13:48] LABS: Color, Urine Yellow (Yellow); Glucose, Dipstick 1000 mg/dl (Normal); Ketone-Dipstick 5 mg/dl (Negative); Leukocyte Esterase-Dipstick Negative /ul (Negative); Nitrite-Dipstick Negative (Negative); Occult Blood-Urine 25 /ul (Negative); Protein-Dipstick 30 mg/dl (Negative); Urine Bilirubin Dipstick Negative (Negative); Urine Clarity Clear (Clear); Urine Urobilinogen Normal (Normal)
[2025-03-01 13:53] LABS: Bacteria RARE /hpf (None Seen); Mucous, Urine RARE /hpf (<or=2+); Red Blood Cells-Urine 0-5 SEEN /hpf (0-5); Squamous Epithelial Cells - UA 0-5 SEEN /hpf (5-10); White Blood Cells 0-5 SEEN /hpf (0-5)
--- NOTE | 2025-03-01 14:56 | HP.PCM.HOS_ITS ---
HPI - General General Date of Admission: 03/01/25 Date of Service: 03/01/25 Chief Complaint: Generalized weakness, fall at home HPI Narrative GARTH MACK, is a 59 F who presents to the emergency room at [facility] with complaints of generalized weakness and decreased ability to perform ADLs. Patient had a fall at home but denies any injuries. She had been hospitalized recently here from 02/24/2025 through 02/26/2025 and was discharged home having declined short-term ECF placement. Her father is helping take care of her at home, but she cannot get up without maximal assistance. Patient is on 3-1/2 L of oxygen at home at all times and according to the patient she has a diagnosis of COPD. Labs obtained in the emergency room showed normal white blood cell count, hemoglobin was 9.8, chemistry profile was unremarkable except for a glucose of 309. Chest x-ray performed today showed cardiomegaly with pulmonary vascular congestion. Patient will be placed in observation status on [facility] 3, she will be seen by PT and OT, patient has no objections to going to a [facility] facility for short-term rehab services at this time. [facility] Medical History Bipolar disorder Non-smoker CPAP (continuous positive airway pressure) dependence On home oxygen therapy Myocardial infarct Hypertension Seizures History of ESBL E. coli infection Schizophrenia Diabetes PTSD (post-traumatic stress disorder) Depression Schizo affective schizophrenia Other specified peripheral vascular diseases Essential hypertension Chest pain Diabetes mellitus type 2, uncontrolled, with complications Back pain Asthma Knee pain Migraines Fatigue Hemorrhoids COPD (chronic obstructive pulmonary disease) Arthritis Pain syndrome, chronic Bipolar disorder Obstructive sleep apnea Stasis dermatitis of both legs Venous insufficiency of both lower extremities Super obese Open wound of left lower extremity GERD (gastroesophageal reflux disease) Benign hypertension ADHD (attention deficit hyperactivity disorder) Home Medications ?Medication ?Instructions ?Recorded ?Last Taken ?Type bupropion HCl 300 mg 24 hr tablet, 450 mg PO DAILY [employer] 03/05/17 10/03/24 History extended release albuterol sulfate 90 mcg/actuation 2 puff inhalation Q 4H PRN Sob &/Or 05/29/18 07/07/18 History aerosol inhaler Wheezing dicyclomine 10 mg capsule 20 mg (2 x 10 mg) PO TIDAC s tomach 07/28/19 10/03/24 Rx #20 caps fluticasone propionate 50 2 spray NASAL DAILY allergie s 08/04/19 10/03/24 History mcg/actuation nasal spray,suspension tizanidine 4 mg capsule 4 mg PO BID PRN Muscle Spasm 07/15/20 Unknown History aspirin 81 mg chewable tablet 81 mg PO DAILY@0800 hear t health 07/17/20 10/03/24 Rx nadolol 80 mg tablet 80 mg PO BID high blood pres sure 07/08/21 10/03/24 History buspirone 10 mg tablet 20 mg PO TID mood 01/25/22 1 12/03/23 History cetirizine 10 mg tablet (Zyrtec) 10 mg PO DAILY allerg ies 01/25/22 10/03/24 History colchicine 0.6 mg tablet 0.6 mg PO DAILY gout 2 10/03/24 History guaifenesin 600 mg tablet, 1,200 mg PO BID PRN Cough 0 01/25/22 Unknown History extended release 12 hr (Mucinex) hydroxyzine pamoate 25 mg capsule 25 - 75 mg PO BID TX N Itching 01/25/22 Unknown History (Vistaril) hyoscyamine sulfate 0.125 mg 0.125 mg PO Q6H PRN IBS 0 01/25/22 Unknown History tablet (Levsin) lorazepam 0.5 mg tablet (Ativan) 0.5 - 1 mg PO BID PRN Panic 01/25/22 Unknown History Attack(S) primidone 250 mg tablet 750 mg PO QHS seizures 01/2510/03/24 History triamcinolone acetonide 0.1 % 1 applic topical TID PRN Rash 01/25/22 Unknown History topical cream fluticasone 500 mcg-salmeterol 50 1 inh inhalation BID breathing 05/02/22 10/03/24 History mcg/dose blistr powdr for inhalation insulin glargine 100 unit/mL (3 74 unit subcut QHS deshaun betes 05/02/22 10/02/24 History mL) subcutaneous pen (Lantus Solostar U-100 Insulin) omeprazole 40 mg capsule,delayed 40 mg PO DAILY gerd 0 05/02/22 10/03/24 History release oxybutynin chloride 10 mg 15 mg PO DAILY bladder 05/0210/03/24 History tablet,extended release 24 hr paliperidone palmitate 117 mg/0.75 117 mg IM Q21D ment al disorder 05/02/22 09/25/24 History mL intramuscular syringe (Invega Sustenna) ergocalciferol (vitamin D2) 1,250 50,000 unit PO QMONT H bone health 08/10/22 10/03/24 History mcg (50,000 unit) capsule (Vitamin D2) insulin lispro 100 unit/mL See Rx Instructions subcut QAC DM 08/10/22 10/03/24 History subcutaneous pen lactulose 10 gram/15 mL oral 60 ml PO BID PRN Constipa tion 08/10/22 Unknown History solution pregabalin 150 mg capsule 150 mg PO TID pain 08/10/22 10/03/24 History lisinopril 10 mg tablet 10 mg PO BID blood pressure 10/03/24 Unknown History naratriptan 2.5 mg tablet See Rx Instructions PO .COMP ELLEN 10/03/24 Unknown History headache ondansetron 4 mg disintegrating 4 mg PO Q8H PRN Nausea 10/03/24 Unknown History tablet trazodone 150 mg tablet 150 mg PO QHS sleep 10/03/24 10/02/24 History bisacodyl 5 mg tablet,delayed 5 mg PO QHS PRN constipa tion 5 10/30/24 Unknown Rx release (Gentle Laxative days #10 tabs (bisacodyl)) albuterol sulfate 2.5 mg/3 mL 2.5 mg inhalation Q6H TX N 02/25/25 Unknown History (0.083 %) solution for nebulization shortness of breat h or wheezing cholecalciferol (vitamin D3) 1,250 1,250 mcg PO QWEEK bone health 02/25/25 Unknown History mcg (50,000 unit) capsule semaglutide 1 mg/dose (4 mg/3 mL) 1 mg subcut QWEEK we ight loss 02/25/25 Unknown History subcutaneous pen injector (Ozempic) doxycycline hyclate 100 mg capsule 100 mg PO BID 5 day s #10 caps 02/26/25 Unknown Rx prednisone 20 mg tablet See Taper PO BREAKFAST #32 t abs 02/26/25 Unknown Rx escitalopram oxalate 20 mg tablet 20 mg PO DAILY [facility] 03/01/25 Unknown History Allergy/AdvReac Type Severity Reaction Status Date / Time meloxicam Allergy Severe Anaphylaxis Verified 03/01/25 12:26 vancomycin Allergy Severe BURNING Verified 03/01/25 12:26 RED RASH ON LEGGS amlodipine (From Norvasc) Allergy Swelling Verified 03/01/25 12:26 cefazolin sodium (From Ancef) Allergy Hives Verified 03/01/25 12:26 fexofenadine (From Nia) Allergy Shortness Verified 03/01/25 12:26 of breath nitrofurantoin (From Allergy Hives Verified 03/01/25 12:26 Macrobid) peanut Allergy Shortness Verified 03/01/25 12:26 of breath Penicillins Allergy Hives Verified 03/01/25 12:26 sumatriptan (From Imitrex) Allergy Shortness Verified 03/01/25 12:26 of breath adhesive AdvReac BURNING Verified 03/01/25 12:26 amitriptyline (From Elavil) AdvReac Other Verified 03/01/25 12:26 clindamycin AdvReac Diarrhea Verified 03/01/25 12:26 ziprasidone (From Geodon) AdvReac NEEDS Verified 03/01/25 12:26 FOLLOW-UP Family History Father CVA (cerebral vascular accident) Heart disease Mother Heart disease Surgical History History of elbow surgery (~06/2020) History of arthroscopic knee surgery History of left heart catheterization (07/16/20) Kidney stone H/O hernia repair Hx of hysterectomy Hx of section Social History household members: spouse housing: house Smoking Status: Never smoker alcohol intake: current alcohol intake frequency: holidays/special occasions only Alcohol type: wine substance use type: does not use caffeine: Yes (occasionally) ROS Constitutional Constitutional: Reports fatigue and weakness; Denies anorexia, change in weight, chills, fever(s) or night sweats Eyes Eyes: Denies blurry vision, change in vision, discharge from eye(s) or eye pain Cardiovascular Cardiovascular: Reports dyspnea on exertion; Denies chest pain, claudication, edema or palpitations Respiratory/Chest Respiratory/Chest: Reports dyspnea, shortness of breath at rest and shortness of breath with exertion; Denies cough, hemoptysis or productive cough Gastrointestinal Gastrointestinal: Denies abdominal pain, constipation, diarrhea, hematemesis, hematochezia, melena, nausea or vomiting Genitourinary Genitourinary: Denies dysuria, hematuria, urinary frequency, urinary hesitancy, urinary incontinence or urinary urgency Musculoskeletal Musculoskeletal: Denies back pain, joint pain, joint stiffness, joint swelling, myalgias or neck pain Neurologic Neurologic: Denies abnormal gait, abnormal speech, dizziness, focal weakness, headache(s), loss of vision, numbness, other visual disturbances, paresthesias, syncope or tingling Psychiatric Psychiatric: Reports other Details: Bipolar disorder ; Denies anxiety, cognitive impairment, depression, irritability, mood swings or suicidal ideation Endocrine Endocrinology: Denies change in body appearance, cold intolerance, excessive sweating, heat intolerance, polydipsia or polyuria Hematologic/Lymphatic Hematologic/Lymphatic: Denies none, anemia, easy bleeding, easy bruising or lymphadenopathy Allergic/Immunologic Allergic/Immunologic: Denies rhinitis, urticaria, eczemia or asthma Vital Signs Vital Signs Vital Signs: 03/01/25 12:17 03/01/25 12:21 03/01/25 12:41 Temperature 98.7 F Temperature Source Oral Pulse Rate 78 68 Respiratory Rate 18 24 H Respiratory Effort Short of Breath Labored Blood Pressure 195/101 H Blood Pressure Mean 132 Pulse Ox 97 Oxygen Delivery Method Nasal Cannula Nasal Cannula Oxygen Flow Rate (L/min) 3 3 03/01/25 12:43 03/01/25 13:20 03/01/25 14:08 Temperature 98.9 F 98.9 F Temperature Source Oral Oral Pulse Rate 89 64 Respiratory Rate 18 20 H Respiratory Effort Blood Pressure 137/121 H 134/98 H Blood Pressure Mean 126 110 Pulse Ox 96 94 95 Oxygen Delivery Method Nasal Cannula Room Air Room Air Oxygen Flow Rate (L/min) 3.5 Weight Weight: 132.131 kg Body Mass Index (BMI) 48.4 Physical Exam Const alert, oriented x3 and no apparent distress Constitutional Narrative: Patient has class III obesity General Appearance: cooperative, well kempt and well developed Orientation / Consciousness: awake, oriented to person, oriented to place and oriented to time HEENT normocephalic, head/scalp atraumatic and moist oral mucous membranes Eyes PERRL, EOMs intact bilaterally and conjunctivae normal Neck supple, no JVD, thyroid normal and no carotid bruits General: trachea midline Resp normal respiratory effort, no retractions and no use of accessory muscles Resp Narrative: Diminished breath sounds bilaterally are noted Auscultation: Negative for rales, rhonchi or wheezes Cardio regular rate, regular rhythm, S1 normal heart sound, S2 normal heart sound, no murmurs, no rub and no gallops GI normal to inspection, nondistended, normoactive bowel sounds, soft to palpation, non-tender and non-distended Extremity Extremity Narrative: Patient has stasis dermatitis changes over both lower legs, there is a small stage II pressure injury over the left perera area-this measures approximately 1 cm in diameter and there is no discharge noted from the area Skin no rashes or lesions noted General Skin Exam: no breakdown Neuro oriented x3, CN's II-XII intact bilaterally, moves all extremities, no focal motor deficits and no sensory deficits noted Sensorium / Orientation: awake and alert Speech: speech normal Psych Psych Narrative: Patient exhibits some mild cognitive impairment which is most likely chronic Results Lab / Micro Data 03/01/25 12:47 03/01/25 12:47 Labs: Laboratory Results - last 24 hr 03/01/25 12:47: WBC 7.5, RBC 3.90 L, Hgb 9.8 L, Hct 33.2 L, MCV 85.1, MCH 25.1 L , MCHC 29.5 L, RDW Std Deviation 50.5 H, RDW Coeff of Jocy 17.2 H, Plt Count 167, MPV 9.9, Immature Gran % (Auto) 0.700, Neut % (Auto) 78.3 H, Lymph % (Auto) 13.5 L, [place] % (Auto) 7.4, Eos % (Auto) 0.0, Baso % (Auto) 0.1, Absolute Neuts (auto) 5.9, Absolute Lymphs (auto) 1.02, Nucleated RBC % 0, Sodium 137, Potassium 4.8, Chloride 96 L, Carbon Dioxide 27.0, Anion Gap 14, BUN 20 H, Creatinine 0.72, Estim Creat Clear Calc 112.76, Est GFR (MDRD) Non-Af 95, BUN/Creatinine Ratio 27.9 H, Glucose 309 H, Calcium 8.6 03/01/25 13:32: Urine Color Yellow, Urine Clarity Clear, Urine pH 6.0, Ur Specific [place] 1.020, Urine Protein 30 H, Urine Glucose (UA) 1000 H, Urine Ketones 5 H, Urine Occult Blood 25 H, Urine Nitrite Negative, Urine Bilirubin Negative, Urine Urobilinogen Normal, Ur Leukocyte Esterase Negative, Urine RBC 0-5 SEEN, Urine WBC 0-5 SEEN, Ur Squamous Epith Cells 0-5 SEEN, Urine Bacteria RARE, Urine Mucus RARE Imaging Radiology Impression Chest X-Ray 03/01/25 13:15 IMPRESSION: Cardiomegaly with pulmonary vascular congestion. Reading Location: [id number] Assessment & Plan Assessment/Plan (1) Generalized weakness: PLAN: Plan 1. Generalized weakness secondary to multiple medical problems including bipolar disorder, class III obesity, chronic hypoxic respiratory failure, COPD- patient will be seen by PT and OT, she will most likely need temporary placement in the [facility] facility. #2 chronic hypoxic respiratory failure-patient states she is on 3-1/2 L of oxygen at home and has been on oxygen for approximately 10 months, pulse ox will be monitored #3 chronic obstructive pulmonary disease-patient will be maintained on aerosol treatments, I do not feel that she needs oral corticosteroids or IV corticosteroids at this time, she was recently placed on doxycycline which I have elected to continue #4 type 2 diabetes-blood sugars will be monitored, sliding scale insulin will be administered as a needed #5 class III obesity-complicates care, management, recovery, and prognosis #6 bipolar disorder-patient will remain on her home medications at this time #7 obstructive sleep apnea-patient is noncompliant with PAP therapy at home #8 essential hypertension-patient will remain on her present medications #9 pulmonary hypertension-patient had an echocardiogram performed in 2020 which showed mild pulmonary hypertension, I have elected to place the patient on Lasix 40 mg p.o. daily starting tomorrow morning to see if this would help her breathing. #10 stage II pressure injury to left perera area-nursing will evaluate this area and recommend treatment Total clinical time spent by myself addressing the patient's medical issues, reviewing all of her data, and collaborating with patient's care team: 75 minutes Charges/Coding Visit Charges Inpatient E&M: 13116 Init Hosp L3
--- NOTE | 2025-03-01 15:20 | CASEMGMT ---
Care Management Face to Face with patient for initial transition planning/care coordination assessment in the ED.? This expert medical writer introduced self and role at [facility]. Patient alert and oriented. Patient willing to participate in assessment and is able to answer all questions appropriately.? Care providers, pharmacy, and demographics verified. ?Patient?s friend Elliott was also present which patient consented to. Admitting Diagnosis: Generalized Weakness, COPD and falls Other diagnosis history: Including but not limited to: HTN, Diabetes, Asthma, Migraines, Arthritis, GERD, Other specified Peripheral Vascular Disease, Morbid Obesity and Myocardial Infarct. PCP: Dr. Cristal Wolf Specialists: None Preferred Pharmacy: [facility] Insurance: Medicaid Prescription Benefit: Yes, through Medicaid. Living Will/HPOA: ?No but interested in completing during this admission. LNOK: Patient has an adult son, Leroy who currently resides in a usp. Living Arrangements: Patient currently lives alone in a one story-apartment. Patient denied any steps leading in/out of her apartment and denied any environmental barriers. Transportation: Patient does not drive and patient?s friend, Elliott provides patient with all transportation needs. DME: 3.5 liters of continuous oxygen (through [employer]), also has ?portable oxygen, CPAP, 2 shower benches, grab bar by shower and grab bar by toilet, hospital bed, lift chair, hand held shower and an Emergency Response Device (name of provider unknown). Member was wearing the ERD pendant in the ED; please ensure it is with patient?s belongings at time of discharge. No DME needs identified at this time. HHC: Patient has previously had PT and OT and currently receives Usp for wound care through [facility] 1-2 times weekly. SNF/Rehab: Previous: [facility]; patient unable to remember the date/year. Community Resources: [facility], 1 hot meal M-F through [employer] and a Home [facility] Aid through [facility], 36 hours per week spread out over 4 days. Patient is also established with a Psychiatrist through [facility] whom patient see?s twice a month. Behavioral Health History: Anxiety, Depression, Bipolar, PTSD, Schizophrenia and ADHD. Patient goals: Patient wishes to be discharged to [facility] upon discharge to try and regain her strength as patient does not currently feel like she can take care of herself at home. After that, patient has a desire to eventually return home. Patient denies any further needs or concerns at this time. Disposition Plan: admission to acute; RN CM/SW to follow for discharge planning needs that may arise. Amy Kennedy, CLAIMS ATTORNEY, MANAGER CONTROL
[2025-03-01] MEDS: guaiFENesin 1,200 MG Tablet 1200 MG PO ×2 (17:05→21:46)
[2025-03-01] MEDS: Acetaminophen 325 MG Tablet 650 MG PO (17:05)
[2025-03-01] MEDS: Furosemide 40 MG Tablet PO (17:14)
[2025-03-01] MEDS: Insulin Lispro 100 UNIT/ML INSULN.PEN SC ×2 (18:26→21:12)
[2025-03-01 18:44] LABS: Bedside Glucose 335 mg/dL (74-106)
[2025-03-01] MEDS: Budesonide Respules 0.5 MG/2 ML AMPUL.NEB. INHALATION (19:40)
[2025-03-01] MEDS: Heparin Injection (Vial) 5,000 UNIT/ML VIAL 5000 UNIT SC (20:25)
[2025-03-01] MEDS: Nadolol 40 MG Tablet 80 MG PO (20:26)
[2025-03-01] MEDS: Primidone 250 MG Tablet 750 MG PO (20:26)
[2025-03-01] MEDS: traZODone 50 MG Tablet 150 MG PO (20:26)
[2025-03-01] MEDS: Doxycycline 100 MG CAPSULE PO (20:27)
[2025-03-01] MEDS: busPIRone 5 MG Tablet 20 MG PO (20:27)
[2025-03-01] MEDS: Lisinopril 10 MG Tablet PO (20:27)
[2025-03-01] MEDS: Pregabalin 75 MG Capsule 150 MG PO (20:35)
[2025-03-01] MEDS: Insulin Glargine-YFGN 100 UNIT/ML Pen 74 UNIT SC (21:12)
[2025-03-01 22:05] LABS: Bedside Glucose 379 mg/dL (74-106)
[2025-03-02] VITALS (9 sets, daily range): BP systolic 133–189; BP diastolic 67–98; PULSE 59–90; RESP 18–20; TEMP 36.6–37.1; O2SAT 95–99
[2025-03-02] MEDS: Ipratropium/Albuterol Sulfate 3 ML AMPUL.NEB INHALATION ×4 (02:26→19:19)
[2025-03-02] MEDS: Acetaminophen 325 MG Tablet 650 MG PO ×2 (02:45→16:33)
[2025-03-02] MEDS: Menthol/Lanolin/Calamine/Znox 113 GM Tube 1 APPLIC TOPICAL ×3 (06:01→20:19)
[2025-03-02] MEDS: busPIRone 5 MG Tablet 20 MG PO ×3 (06:01→20:19)
[2025-03-02] MEDS: Pregabalin 75 MG Capsule 150 MG PO ×3 (06:01→20:21)
[2025-03-02] MEDS: Insulin Lispro 100 UNIT/ML INSULN.PEN SC ×4 (06:02→20:20)
[2025-03-02 06:28] LABS: Bedside Glucose 265 mg/dL (74-106)
[2025-03-02] MEDS: Budesonide Respules 0.5 MG/2 ML AMPUL.NEB. INHALATION ×2 (07:16→19:19)
--- NOTE | 2025-03-02 08:14 | PCM.PN.HOSP ---
Reason for Visit Reason for Visit: Diagnoses Weakness (03/01/25) Subjective Subjective Patient evaluated at bedside, reports she has some pain in her right hip after falling, still feels generally weak and is hoping for placement, has had some diarrhea for days which she had been complaining about previously, will check stool studies, no nausea or abdominal pain, breathing is a little bit better Objective Data Objective Data Vital Signs: Vital Signs Temp Pulse Resp BP Pulse Ox O2 Del Method O2 Flow Rate 97.9 F 59 L 20 H 133/67 H 98 Nasal Cannula 4 03/02/25 02:50 03/02/25 07:17 03/02/25 07:17 03/02/25 02:50 03/02/25 07:17 03/02/25 07:17 03/02/25 07:17 Oxygen Flow Rate (L/min) 4 Oxygen Delivery Method Nasal Cannula Weight: 132.131 kg Body Mass Index (BMI) 48.4 Intake & Output: Intake and Output for Last 24 Hours 02/28/25 03/01/25 03/02/25 23:59 23:59 23:59 Intake Total 1200 / 1200 Output Total 850 / 850 Balance 1200 / 350 -850 / -850 Lab / Micro Data 03/01/25 12:47 03/01/25 12:47 Labs: Laboratory Results - last 24 hr 03/01/25 12:47: WBC 7.5, RBC 3.90 L, Hgb 9.8 L, Hct 33.2 L, MCV 85.1, MCH 25.1 L, MCHC 29.5 L, RDW Std Deviation 50.5 H, RDW Coeff of Jocy 17.2 H, Plt Count 167, MPV 9.9, Immature Gran % (Auto) 0.700, Neut % (Auto) 78.3 H, Lymph % (Auto) 13.5 L, [place] % (Auto) 7.4, Eos % (Auto) 0.0, Baso % (Auto) 0.1, Absolute Neuts (auto) 5.9, Absolute Lymphs (auto) 1.02, Nucleated RBC % 0, Sodium 137, Potassium 4.8, Chloride 96 L, Carbon Dioxide 27.0, Anion Gap 14, BUN 20 H, Creatinine 0.72, Estim Creat Clear Calc 112.76, Est GFR (MDRD) Non-Af 95, BUN/Creatinine Ratio 27.9 H, Glucose 309 H, Calcium 8.6 03/01/25 13:32: Urine Color Yellow, Urine Clarity Clear, Urine pH 6.0, Ur Specific [place] 1.020, Urine Protein 30 H, Urine Glucose (UA) 1000 H, Urine Ketones 5 H, Urine Occult Blood 25 H, Urine Nitrite Negative, Urine Bilirubin Negative, Urine Urobilinogen Normal, Ur Leukocyte Esterase Negative, Urine RBC 0-5 SEEN, Urine WBC 0-5 SEEN, Ur Squamous Epith Cells 0-5 SEEN, Urine Bacteria RARE, Urine Mucus RARE 03/01/25 17:14: POC Glucose 335 H 03/01/25 21:10: POC Glucose 379 H 03/02/25 05:56: POC Glucose 265 H Radiography Diagnostic Testing: Radiology Impression Chest X-Ray 03/01/25 13:15 IMPRESSION: Cardiomegaly with pulmonary vascular congestion. Reading Location: [facility] Physical Exam Narrative General: Alert, no apparent distress HEENT: Atraumatic, normocephalic Eyes: Anicteric, normal conjunctiva, extraocular movements grossly intact Neck: Supple Respiratory: Slight increased work of breathing, diminished at the bases but in part due to habitus Cardiovascular: Regular rate and rhythm GI: Soft, nontender, nondistended Extremities: No significant pitting edema Musculoskeletal: Moving all extremities Neuro: No overt focal neurological deficits Skin: No rashes appreciated Psych: Cooperative Assessment & Plan Assessment/Plan (1) Falls: (2) Generalized weakness: (3) Fatigue: PLAN: Plan # Generalized weakness/failure to thrive - Patient was recently hospitalized for COPD exacerbation secondary to RSV, she was only home for about 48 hours before coming back in because she was feeling weak and had 2 falls - Of note she had been evaluated by physical therapy during her last admission and did fair and patient wanted to go home so she was discharged home - Will consult PT/OT - Case management and social work -Patient feeling weak, now like placement # Recent COPD exacerbation secondary to RSV on top of chronic hypoxic respiratory failure on 3 and half liters of O2 - Patient was discharged on doxycycline and steroids, will continue these while admitted - Patient on DuoNebs - There is concern for pulmonary hypertension by admitting physician given x-ray findings, untreated sleep apnea and previous echo results so patient was placed on 40 of Lasix daily, given continue to monitor on this for now, breathing is roughly at baseline so may be able to DC this in 1 to 2 days versus seeing if this needs to be made for medication pending patient progress and kidney function #Type 2 diabetes mellitus -Glucose checks and sliding scale insulin - Continue long-acting insulin #Hypertension - Patient on antihypertensives, continue home medications #ABRAM - Noncompliant at home but did become hypercapnic resulting patient necessitating BiPAP and being obtunded at the beginning of last admission, she wore BiPAP while she was admitted - Ordered BiPAP for here as well given how quickly and easily she retains CO2 at the time #Morbid obesity -BMI documented as 48.5 kg/m? at time of admission -Complicates treatment, prognosis, outcomes -Recommend weight loss and lifestyle changes # Bipolar disorder and anxiety -Home medications continued #DVT ppx: Heparin subcu Jenni Swartz MD Charges/Coding Visit Charges Inpatient E&M: 74066 Subs Hosp L2
[2025-03-02] MEDS: Insulin Lispro 100 UNIT/ML INSULN.PEN 14 UNIT SC (09:46)
[2025-03-02] MEDS: Nadolol 40 MG Tablet 80 MG PO ×2 (09:47→20:19)
[2025-03-02] MEDS: Tolterodine Tartrate 4 MG CAP.SA PO (09:47)
[2025-03-02] MEDS: Lisinopril 10 MG Tablet PO ×2 (09:48→20:22)
[2025-03-02] MEDS: Pantoprazole Sodium 40 MG Tablet PO (09:48)
[2025-03-02] MEDS: Aspirin 81 MG TAB.CHEW PO (09:48)
[2025-03-02] MEDS: Doxycycline 100 MG CAPSULE PO ×2 (09:48→20:19)
[2025-03-02] MEDS: Furosemide 40 MG Tablet PO (09:49)
[2025-03-02] MEDS: Escitalopram Oxalate 20 MG Tablet PO (09:49)
[2025-03-02] MEDS: buPROPion (XL) 150 MG TABLET.XL 450 MG PO (09:49)
[2025-03-02] MEDS: Colchicine 0.6 MG TABLET PO (10:15)
[2025-03-02] MEDS: predniSONE 20 MG Tablet 60 MG PO (10:15)
[2025-03-02 11:24] LABS: Bedside Glucose 276 mg/dL (74-106)
[2025-03-02] MEDS: guaiFENesin 1,200 MG Tablet 1200 MG PO ×2 (12:00→20:20)
[2025-03-02] MEDS: Heparin Injection (Vial) 5,000 UNIT/ML VIAL 5000 UNIT SC ×2 (14:48→20:20)
--- NOTE | 2025-03-02 15:19 | RAD_ITS ---
PROCEDURE: HIPS B/L MIN 2 VIEWS W/ PELVIS 03/02/2025 REASON FOR EXAM: FELL, REPORTING PAIN TECHNIQUE: Three views each of the bilateral hips. COMPARISON: None FINDINGS: No acute fracture or dislocation. Moderate bilateral osteoarthritis. No focal soft tissue abnormality. RAD/Hips B/L min 2 views w/ Pelvis IMPRESSION: No acute fracture or dislocation. Reading Location: [facility]
[2025-03-02] MEDS: oxyCODONE 5 MG Tablet 2.5 MG PO (16:32)
[2025-03-02 17:02] LABS: Bedside Glucose 332 mg/dL (74-106)
[2025-03-02] MEDS: traZODone 50 MG Tablet 150 MG PO (20:19)
[2025-03-02] MEDS: Primidone 250 MG Tablet 750 MG PO (20:21)
[2025-03-02] MEDS: Insulin Glargine-YFGN 100 UNIT/ML Pen 74 UNIT SC (20:21)
[2025-03-02] MEDS: tiZANidine HCl 2 MG Tablet 4 MG PO (20:22)
[2025-03-02] MEDS: LORazepam 0.5 MG Tablet PO (23:24)
[2025-03-02 23:44] LABS: Bedside Glucose 341 mg/dL (74-106)
[2025-03-03 02:08] VITALS: BP 153/67; PULSE 59; RESP 18; TEMP 36.4; O2SAT 100
[2025-03-03] MEDS: oxyCODONE 5 MG Tablet 2.5 MG PO (02:10)
[2025-03-03] MEDS: Acetaminophen 325 MG Tablet 650 MG PO ×2 (02:11→13:38)
[2025-03-03] MEDS: Menthol/Lanolin/Calamine/Znox 113 GM Tube 1 APPLIC TOPICAL ×2 (06:30→13:39)
[2025-03-03] MEDS: Heparin Injection (Vial) 5,000 UNIT/ML VIAL 5000 UNIT SC ×2 (06:30→13:38)
[2025-03-03] MEDS: busPIRone 5 MG Tablet 20 MG PO ×2 (06:30→13:38)
[2025-03-03] MEDS: Pregabalin 75 MG Capsule 150 MG PO ×2 (06:31→13:38)
[2025-03-03 06:38] LABS: Hematocrit 32.6 % (37-47); Hemoglobin 9.7 g/dL (12.0-15.0); Mean Corp Hgb Conc 29.8 g/dL (32-36); Mean Corpuscular Hgb 24.9 pg (27.0-32.0); Mean Corpuscular Volume 83.6 fL (81-99); Mean Platelet Vol. 8.9 fl (6.2-12.0); Platelet Count 200 K/mm3 (150-450); RBC Distribution Width CV 17.2 % (11.6-14.6); RBC Distribution Width SD 50.1 fl (35.1-43.9); White Blood Count 6.3 K/mm3 (4.4-11.0)
[2025-03-03 07:09] LABS: Anion Gap 9 (5-15); BUN 20 mg/dL (4-19); BUN/Creat Ratio 28.6 RATIO (10-20); Calcium,Total 8.8 mg/dL (7.6-11.0); Carbon Dioxide 35.1 mmol/L (21.0-32.0); Chloride 95 mmol/L (98-108); Creatinine, Serum 0.68 mg/dL (0.70-1.20); EST Glomerular Filtration Rate 99 (>60); Estimated Creatinine Clearance 119.39 ml/min (50-250); Glucose 151 mg/dL (70-99); Potassium 3.7 mmol/L (3.3-5.1); Sodium Level 138 mmol/L (133-145)
[2025-03-03 07:19] VITALS: PULSE 67; RESP 22; O2SAT 93
[2025-03-03] MEDS: Ipratropium/Albuterol Sulfate 3 ML AMPUL.NEB INHALATION ×2 (07:19→13:31)
--- NOTE | 2025-03-03 07:19 | CPS ---
Pt is noncompliant @home w/PAP machine, no longer has and doesn't want to wear one of our machines.
[2025-03-03] MEDS: Budesonide Respules 0.5 MG/2 ML AMPUL.NEB. INHALATION (07:23)
[2025-03-03 07:54] VITALS: BP 158/77; PULSE 51; RESP 18; TEMP 36.6; O2SAT 100
[2025-03-03 08:00] VITALS: O2SAT 100
[2025-03-03] MEDS: Aspirin 81 MG TAB.CHEW PO (08:02)
[2025-03-03] MEDS: Nadolol 40 MG Tablet 80 MG PO (08:03)
[2025-03-03] MEDS: Colchicine 0.6 MG TABLET PO (08:03)
[2025-03-03] MEDS: Tolterodine Tartrate 4 MG CAP.SA PO (08:03)
[2025-03-03] MEDS: Doxycycline 100 MG CAPSULE PO (08:04)
[2025-03-03] MEDS: Escitalopram Oxalate 20 MG Tablet PO (08:04)
[2025-03-03] MEDS: Furosemide 40 MG Tablet PO (08:04)
[2025-03-03] MEDS: buPROPion (XL) 150 MG TABLET.XL 450 MG PO (08:05)
[2025-03-03] MEDS: Pantoprazole Sodium 40 MG Tablet PO (08:05)
[2025-03-03] MEDS: Lisinopril 10 MG Tablet PO (08:05)
--- NOTE | 2025-03-03 08:31 | PN.HOSP_ITS ---
Subjective Subjective Doing well, no issues overnight. Continue with physical therapy Objective Data Objective Data Vital Signs: Vital Signs Temp Pulse Resp BP Pulse Ox O2 Del Method O2 Flow Rate 97.8 F 51 L 18 158/77 H 100 Nasal Cannula 3 03/03/25 07:54 03/03/25 07:54 03/03/25 07:54 03/03/25 07:54 03/03/25 07:54 03/03/25 07:54 03/03/25 07:54 Oxygen Flow Rate (L/min) 3 Oxygen Delivery Method Nasal Cannula Weight: 291 lb 4.8 oz Body Mass Index (BMI) 48.4 Intake & Output: Intake and Output for Last 24 Hours 03/02/25 03/03/25 03/04/25 03:59 03:59 03:59 Intake Total 1200 / 1200 1550 / 1550 400 / 400 Output Total 850 / 850 550 / 550 Balance 350 / 350 1550 / 1550 -150 / -150 Lab / Micro Data 03/03/25 06:30 03/03/25 06:30 Labs: Laboratory Results - last 24 hr 03/02/25 11:06: POC Glucose 276 H 03/02/25 16:35: POC Glucose 332 H 03/02/25 20:17: POC Glucose 341 H 03/03/25 06:30: WBC 6.3, RBC 3.90 L, Hgb 9.7 L, Hct 32.6 L, MCV 83.6, MCH 24.9 L , MCHC 29.8 L, RDW Std Deviation 50.1 H, RDW Coeff of Jocy 17.2 H, Plt Count 200, MPV 8.9, Sodium 138, Potassium 3.7, Chloride 95 L, Carbon Dioxide 35.1 H, Anion Gap 9, BUN 20 H, Creatinine 0.68 L, Estim Creat Clear Calc 119.39, Est GFR (MDRD) Non-Af 99, BUN/Creatinine Ratio 28.6 H, Glucose 151 H, Calcium 8.8 Micro: Microbiology 03/02/25 18:49 Stool Clostridioides difficile (PCR) - Final Radiography Diagnostic Testing: Radiology Impression Hip/Pelvis X-Ray 03/02/25 15:19 IMPRESSION: No acute fracture or dislocation. Reading Location: [facility] Physical Exam Narrative General: Alert, Oriented x3, Cooperative, No apparent distress HEENT: Atraumatic, PERRLA, EOMI, Normocephalic Oral: Moist Mucosa Neck: Supple, No JVD Lungs: Diminished, Normal air movement, No rhonchi, No wheeze, No rales Cardiovascular: Regular rate, Regular Rhythm, Normal S1, Normal S2, No murmurs Abdomen: Soft, Non Tender, Non-Distended, No Hepato-splenomegaly Extremities: No edema, Capillary Refill Less than 3 Seconds Skin: No rashes, No breakdown Musculoskeletal: No Tenderness to Palpation of Joints or Extremities Neurological: No focal neurological deficits, Motor Exam 5/5 strength throughout, Sensory exam intact to light touch and pain Psych/Mental Status: Normal Affect, Appropriate Assessment & Plan Assessment/Plan (1) Falls: (2) Generalized weakness: (3) Fatigue: PLAN: Plan 1. Generalized weakness and failure to thrive after recent admission for COPD exacerbation secondary to RSV/chronic hypoxic respiratory failure ? She is on 3 L nasal cannula at baseline ? Continue with PT/OT ? COPD exacerbation has resolved however too debilitated to stay at home she was discharged initially came back within 48 hours because of her inability to complete ADLs and take care of herself 2. Essential HTN ? Continue with her home blood pressure medications ? Will monitor make adjustments as necessary 3. DM2/morbid obesity ? Continue with insulin ? Accu-Cheks ACH S ? Will monitor make adjustments as necessary ? Will hold her home oral medications ? Lifestyle management discussed, BMI of 48.5 4. Bipolar with anxiety ? Stable ? Continue with her home medications DVT: Heparin Charges/Coding Visit Charges Inpatient E&M: 47698 Subs Hosp L2
[2025-03-03] MEDS: Insulin Lispro 100 UNIT/ML INSULN.PEN SC (08:44)
[2025-03-03] MEDS: Insulin Lispro 100 UNIT/ML INSULN.PEN 14 UNIT SC (08:44)
[2025-03-03] MEDS: predniSONE 20 MG Tablet 60 MG PO (08:45)
--- NOTE | 2025-03-03 09:21 | CASEMGMT ---
Discharge Planning Referral sent to [facility]. Nat Gtz DC Planning Asst
--- NOTE | 2025-03-03 09:51 | CASEMGMT ---
[facility] has accepted. updated. Nat Gtz DC Planning Asst.
[2025-03-03 11:55] LABS: Bedside Glucose 145 mg/dL (74-106)
--- NOTE | 2025-03-03 12:08 | PCM.TXEXTCAR ---
Diet Diet Order/Speech Therapy: 03/01/25 16:26 Diet: Consistent Carb - Calorie Controlled Food consistency:: Regular Liquid Consistency:: Regular/Thin How many daily calories?: 1800 calorie Routine Orders/Code Status Routine Lab Work: CBC and BMP Code Status: Full Code DC O2, CPAP, BIPAP needs Home O2 Discharge instructions: No Wound(s) LLE/perera: Wound Type: ulceration Therapies Physical Therapy: Eval and Treat Occupational Therapy: Eval and Treat Problem/Diagnosis (1) Falls: Status: Acute Code(s): R29.6 - Repeated falls (2) Generalized weakness: Status: Acute Code(s): R53.1 - Weakness (3) Fatigue: Status: Acute Code(s): R53.83 - Other fatigue Plan 1. Generalized weakness and failure to thrive after recent admission for COPD exacerbation secondary to RSV/chronic hypoxic respiratory failure ? She is on 3 L nasal cannula at baseline ? Continue with PT/OT ? COPD exacerbation has resolved however too debilitated to stay at home she was discharged initially came back within 48 hours because of her inability to complete ADLs and take care of herself 2. Essential HTN ? Continue with her home blood pressure medications ? Will monitor make adjustments as necessary 3. DM2/morbid obesity ? Continue with insulin ? Accu-Cheks ACH S ? Will monitor make adjustments as necessary ? Will hold her home oral medications ? Lifestyle management discussed, BMI of 48.5 4. Bipolar with anxiety ? Stable ? Continue with her home medications DVT: Heparin Allergies/Procedures Done in Hospital Allergies meloxicam Allergy (Severe, Verified 03/01/25 12:26) Anaphylaxis vancomycin Allergy (Severe, Verified 03/01/25 12:26) BURNING RED RASH ON LEGGS amlodipine (From Norvasc) Allergy (Verified 03/01/25 12:26) Swelling cefazolin sodium (From Ancef) Allergy (Verified 03/01/25 12:26) Hives fexofenadine (From Nia) Allergy (Verified 03/01/25 12:26) Shortness of breath nitrofurantoin (From Macrobid) Allergy (Verified 03/01/25 12:26) Hives peanut Allergy (Verified 03/01/25 12:26) Shortness of breath difficulty swallowing, throat swelling, resolved w/ benadryl per pt. Penicillins Allergy (Verified 04/12/25 12:26) Hives per pt this was a past reaction, and she has taken recently w/o problem sumatriptan (From Imitrex) Allergy (Verified 03/01/25 12:26) Shortness of breath adhesive Adverse Reaction (Verified 03/01/25 12:26) BURNING DUODERM amitriptyline (From Elavil) Adverse Reaction (Verified 03/01/25 12:26) Other hallucinations clindamycin Adverse Reaction (Verified 03/01/25 12:26) Diarrhea ziprasidone (From Geodon) Adverse Reaction (Verified 03/01/25 12:26) NEEDS FOLLOW-UP severe headache Procedures: None Type of Care/Length of Stay Estimated LOS: Convalescent Care Less Than 30 days Type of Care Needed: Skilled Rehab Potential: Good Prognosis: Good Additional Orders/Day of Discharge Day of Discharge: 03/03/25 Discharge Plan Admission Admit Date/Time: 03/01/25 14:16 Attending Provider: Salinas Heard Primary Care Provider: Cristal Wolf Consulting Providers: Phil Velazquez; Jenni Swartz Discharge Orders/Prescriptions Prescriptions: Continued omeprazole 40 mg capsule,delayed release(DR/EC) 40 mg PO DAILY oxybutynin chloride 10 mg tablet extended release 24hr 15 mg PO DAILY Invega Sustenna 117 mg/0.75 mL syringe 117 mg IM Q21D pregabalin 150 mg capsule 150 mg PO TID ergocalciferol (vitamin D2) [Vitamin D2] 1,250 mcg (50,000 unit) capsule 50,000 unit PO QMONTH insulin lispro 100 unit/mL insulin pen See Rx Instructions subcut QAC Rx Instructions: 14 units with breakfast ,16units with lunch, 24units with diner bupropion HCl 300 MG tablet extended release 24 hr 450 mg PO DAILY Patient Comments: DEPRESSION albuterol sulfate 1 INHALER inhaler 2 puff INHALATION Q4H PRN (Reason: Sob &/Or Wheezing) dicyclomine 10 MG capsule 20 mg PO TIDAC Qty: 20 0RF fluticasone propionate 1 SPRAY spray,suspension 2 spray NASAL DAILY tizanidine 4 MG capsule 4 mg PO BID PRN (Reason: Muscle Spasm) aspirin 81 MG tablet,chewable 81 mg PO DAILY@0800 0RF insulin glargine [Lantus Solostar U-100 Insulin] 100 unit/mL (3 mL) insulin pen 74 unit SUBCUT QHS cetirizine [Zyrtec] 10 mg Tablet 10 mg PO DAILY triamcinolone acetonide 0.1 % Cream 1 applic TOPICAL TID PRN (Reason: Rash) primidone 250 mg Tablet 750 mg PO QHS lorazepam [Ativan] 0.5 mg Tablet 0.5 - 1 mg PO BID PRN (Reason: Panic Attack(S)) hyoscyamine sulfate [Levsin] 0.125 mg Tablet 0.125 mg PO Q6H PRN (Reason: IBS) buspirone 10 mg Tablet 20 mg PO TID colchicine 0.6 mg Tablet 0.6 mg PO DAILY hydroxyzine pamoate [Vistaril] 25 mg Capsule 25 - 75 mg PO BID PRN (Reason: Itching) guaifenesin [Mucinex] 600 mg Tablet Extended Release 12hr 1,200 mg PO BID PRN (Reason: Cough) fluticasone propion-salmeterol 500-50 mcg/dose blister with device 1 inh INHALATION BID lactulose 10 gram/15 mL solution 60 ml PO BID PRN (Reason: Constipation) naratriptan 2.5 mg tablet See Rx Instructions .ROUTE .COMPLEX Rx Instructions: take 1 tab at onset of headache; if no relief may repeat 1 tab after at least 4 hrs; max = 2 tabs/24 hrs ondansetron 4 MG tablet 4 mg PO Q8H PRN (Reason: Nausea) lisinopril 10 mg tablet 10 mg PO BID trazodone 150 mg tablet 150 mg PO QHS bisacodyl [Gentle Laxative (bisacodyl)] 5 mg tablet,delayed release (DR/EC) 5 mg PO QHS PRN (Reason: constipation) 5 Days Qty: 10 0RF escitalopram oxalate 20 mg tablet 20 mg PO DAILY albuterol sulfate 2.5 mg /3 mL (0.083 %) solution for nebulization 2.5 mg inhalation Q6H PRN (Reason: shortness of breath or wheezing) cholecalciferol (vitamin D3) 1,250 mcg (50,000 unit) capsule 1,250 mcg PO QWEEK Ozempic 1 mg/dose (4 mg/3 mL) pen injector 1 mg subcut QWEEK prednisone 20 mg Tablet See Taper PO BREAKFAST Qty: 32 0RF Taper: Prednisone Taper 60 mg WITH BREAKFAST for 3 Days and 0 Hour 50 mg WITH BREAKFAST for 3 Days and 0 Hour 40 mg WITH BREAKFAST for 3 Days and 0 Hour 30 mg WITH BREAKFAST for 3 Days and 0 Hour 20 mg WITH BREAKFAST for 3 Days and 0 Hour 10 mg WITH BREAKFAST for 3 Days and 0 Hour doxycycline hyclate 100 mg capsule 100 mg PO BID 5 Days Qty: 10 0RF Patient Comments: STARTED 02/26/25. nadolol 80 mg tablet 80 mg PO BID Referrals / Follow Up: Cristal Wolf MD [Primary Care Provider] - Disposition Disposition (needs filled in before D/C Order can be placed): [facility]
--- NOTE | 2025-03-03 12:41 | CASEMGMT ---
Addendum entered by Isamar Pabon 03/03/25 15:29: SW received LOC. SHIVA updated DCA. SHIVA updated physician. Physician feels pt is medically ready and will discharge. MADAN Key Original Note: Social Work- SW called pt father to compile information for PASRR. Father reports that pt roland not have hx of seizures. Father reports that pt has case filler through [facility] and a counselor through [facility]. No other community resources. Pt father reports no psychiatric hospitalizations in previous 2 years. Pt father confirms he assists with transportation and other household tasks as needed. Pt has [employer] [place] manager civil, Richa; pt has MOW, medical alert, 36 hrs/week of SN/PT/OT. Pt father agreeable to d/c plan to [facility]. SHIVA remains available to follow. MADAN Key
[2025-03-03 13:31] VITALS: PULSE 68; RESP 22
--- NOTE | 2025-03-03 13:42 | PHA.DC.MR.R ---
Pharmacy [place] Med Reconciliation Pharmacy Service has performed discharge medication reconciliation for this patient. The patient's discharge medication list was reviewed for discrepancies and discrepancies were resolved. Medications at Discharge Home Medications bupropion HCl 300 mg 24 hr tablet, extended release 450 mg PO DAILY mental health 03/05/17 albuterol sulfate 90 mcg/actuation aerosol inhaler 2 puff inhalation Q4H PRN Sob &/Or Wheezing 05/29/18 dicyclomine 10 mg capsule 20 mg (2 x 10 mg) PO TIDAC stomach #20 caps 07/28/19 fluticasone propionate 50 mcg/actuation nasal spray,suspension 2 spray NASAL DAILY allergies 08/04/19 tizanidine 4 mg capsule 4 mg PO BID PRN Muscle Spasm 07/15/20 aspirin 81 mg chewable tablet 81 mg PO DAILY@0800 heart health 07/17/20 nadolol 80 mg tablet 80 mg PO BID high blood pressure 07/08/21 buspirone 10 mg tablet 20 mg PO TID mood 01/25/22 cetirizine 10 mg tablet (Zyrtec) 10 mg PO DAILY allergies 01/25/22 colchicine 0.6 mg tablet 0.6 mg PO DAILY gout 01/25/22 guaifenesin 600 mg tablet, extended release 12 hr (Mucinex) 1,200 mg PO BID PRN Cough 01/25/22 hydroxyzine pamoate 25 mg capsule (Vistaril) 25 - 75 mg PO BID PRN Itching 01/25/22 hyoscyamine sulfate 0.125 mg tablet (Levsin) 0.125 mg PO Q6H PRN IBS 01/25/22 lorazepam 0.5 mg tablet (Ativan) 0.5 - 1 mg PO BID PRN Panic Attack(S) 01/25/22 primidone 250 mg tablet 750 mg PO QHS seizures 01/25/22 triamcinolone acetonide 0.1 % topical cream 1 applic topical TID PRN Rash 01/25/22 fluticasone 500 mcg-salmeterol 50 mcg/dose blistr powdr for inhalation 1 inh inhalation BID breathing 05/02/22 insulin glargine 100 unit/mL (3 mL) subcutaneous pen (Lantus Solostar U-100 Insulin) 74 unit subcut QHS diabetes 05/02/22 omeprazole 40 mg capsule,delayed release 40 mg PO DAILY gerd 05/02/22 oxybutynin chloride 10 mg tablet,extended release 24 hr 15 mg PO DAILY bladder 05/02/22 paliperidone palmitate 117 mg/0.75 mL intramuscular syringe (Invega Sustenna) 117 mg IM Q21D mental disorder 05/02/22 ergocalciferol (vitamin D2) 1,250 mcg (50,000 unit) capsule (Vitamin D2) 50,000 unit PO QMONTH bone health 08/10/22 insulin lispro 100 unit/mL subcutaneous pen See Rx Instructions subcut QAC DM 08/10/22 lactulose 10 gram/15 mL oral solution 60 ml PO BID PRN Constipation 08/10/22 pregabalin 150 mg capsule 150 mg PO TID pain 08/10/22 lisinopril 10 mg tablet 10 mg PO BID blood pressure 10/03/24 naratriptan 2.5 mg tablet See Rx Instructions PO .COMPLEX headache 10/03/24 ondansetron 4 mg disintegrating tablet 4 mg PO Q8H PRN Nausea 10/03/24 trazodone 150 mg tablet 150 mg PO QHS sleep 10/03/24 bisacodyl 5 mg tablet,delayed release (Gentle Laxative (bisacodyl)) 5 mg PO QHS PRN constipation 5 days #10 tabs 10/30/24 albuterol sulfate 2.5 mg/3 mL (0.083 %) solution for nebulization 2.5 mg inhalation Q6H PRN shortness of breath or wheezing 02/25/25 cholecalciferol (vitamin D3) 1,250 mcg (50,000 unit) capsule 1,250 mcg PO QWEEK bone health 02/25/25 semaglutide 1 mg/dose (4 mg/3 mL) subcutaneous pen injector (Ozempic) 1 mg subcut QWEEK weight loss 02/25/25 doxycycline hyclate 100 mg capsule 100 mg PO BID 5 days #10 caps 02/26/25 prednisone 20 mg tablet See Taper PO BREAKFAST #32 tabs 02/26/25 escitalopram oxalate 20 mg tablet 20 mg PO DAILY MENTAL HEALTH 03/01/25
--- NOTE | 2025-03-03 14:29 | CASEMGMT ---
Social Work- LOC has been obtained.? Physician updated and pt is ready for discharge today.? PASRR completed in [facility]ENS. DCA and bedside nurse notified of discharge. Final arrangements and notifications to family to be completed by DCA. Disposition:[facility], skilled level of care MADAN Key
--- NOTE | 2025-03-03 14:57 | CHAPLAIN ---
Type of Pastoral Visit ___ Initial Visit ___ Follow-up Visit ___ On-call Visit ___ General Patient Visit ___ Spiritual Assessment ___ Family Conference ___ Bereavement ___ Rapid Response ___ Code Blue ___ Other (describe below) Pastoral Care Referral From ___ Patient ___ Family ___ Nurse ___ Physician ___ Traffic Administrator ___ Lens Generator ___ Other (describe below) Sacrament/Intervention ___ Active listening ___ Anointing ___ Mormon ___ Bereavement ___ Communion ___ Rianna exploration ___ ___ Life review ___ Prayer ___ Reconciliation ___ Sacrament of Sick ___ Supportive presence ___ Wedding ___ Other (describe below) Pastoral Comments patient was not in the room; EVS staff was cleaning it so unclear where patient was at this time
[2025-03-03 14:58] VITALS: BP 134/62; PULSE 55; RESP 18; TEMP 36.5; O2SAT 99
--- NOTE | 2025-03-03 15:28 | DS.PCM_ITS ---
Providers Date of Admission: 03/01/25 Primary Care Physician: Dr. Cristal Wolf MD Reason For Visit: GENERALIZED WEAKNESS Diagnosis Discharge Diagnosis (1) Falls: Status: Acute Code(s): R29.6 - Repeated falls (2) Generalized weakness: Status: Acute Code(s): R53.1 - Weakness (3) Fatigue: Status: Acute Code(s): R53.83 - Other fatigue Medications at Discharge Home Medications bupropion HCl 300 mg 24 hr tablet, extended release 450 mg PO DAILY mental health 03/05/17 albuterol sulfate 90 mcg/actuation aerosol inhaler 2 puff inhalation Q4H PRN Sob &/Or Wheezing 05/29/18 dicyclomine 10 mg capsule 20 mg (2 x 10 mg) PO TIDAC stomach #20 caps 07/28/19 fluticasone propionate 50 mcg/actuation nasal spray,suspension 2 spray NASAL DAILY allergies 08/04/19 tizanidine 4 mg capsule 4 mg PO BID PRN Muscle Spasm 07/15/20 aspirin 81 mg chewable tablet 81 mg PO DAILY@0800 heart health 07/17/20 nadolol 80 mg tablet 80 mg PO BID high blood pressure 07/08/21 buspirone 10 mg tablet 20 mg PO TID mood 01/25/22 cetirizine 10 mg tablet (Zyrtec) 10 mg PO DAILY allergies 01/25/22 colchicine 0.6 mg tablet 0.6 mg PO DAILY gout 01/25/22 guaifenesin 600 mg tablet, extended release 12 hr (Mucinex) 1,200 mg PO BID PRN Cough 01/25/22 hydroxyzine pamoate 25 mg capsule (Vistaril) 25 - 75 mg PO BID PRN Itching 01/25/22 hyoscyamine sulfate 0.125 mg tablet (Levsin) 0.125 mg PO Q6H PRN IBS 01/25/22 lorazepam 0.5 mg tablet (Ativan) 0.5 - 1 mg PO BID PRN Panic Attack(S) 01/25/22 primidone 250 mg tablet 750 mg PO QHS seizures 01/25/22 triamcinolone acetonide 0.1 % topical cream 1 applic topical TID PRN Rash 01/25/22 fluticasone 500 mcg-salmeterol 50 mcg/dose blistr powdr for inhalation 1 inh inhalation BID breathing 05/02/22 insulin glargine 100 unit/mL (3 mL) subcutaneous pen (Lantus Solostar U-100 Insulin) 74 unit subcut QHS diabetes 05/02/22 omeprazole 40 mg capsule,delayed release 40 mg PO DAILY gerd 05/02/22 oxybutynin chloride 10 mg tablet,extended release 24 hr 15 mg PO DAILY bladder 05/02/22 paliperidone palmitate 117 mg/0.75 mL intramuscular syringe (Invega Sustenna) 117 mg IM Q21D mental disorder 05/02/22 ergocalciferol (vitamin D2) 1,250 mcg (50,000 unit) capsule (Vitamin D2) 50,000 unit PO QMONTH bone health 08/10/22 insulin lispro 100 unit/mL subcutaneous pen See Rx Instructions subcut QAC DM 08/10/22 lactulose 10 gram/15 mL oral solution 60 ml PO BID PRN Constipation 08/10/22 pregabalin 150 mg capsule 150 mg PO TID pain 08/10/22 lisinopril 10 mg tablet 10 mg PO BID blood pressure 10/03/24 naratriptan 2.5 mg tablet See Rx Instructions PO .COMPLEX headache 10/03/24 ondansetron 4 mg disintegrating tablet 4 mg PO Q8H PRN Nausea 10/03/24 trazodone 150 mg tablet 150 mg PO QHS sleep 10/03/24 bisacodyl 5 mg tablet,delayed release (Gentle Laxative (bisacodyl)) 5 mg PO QHS PRN constipation 5 days #10 tabs 10/30/24 albuterol sulfate 2.5 mg/3 mL (0.083 %) solution for nebulization 2.5 mg inhalation Q6H PRN shortness of breath or wheezing 02/25/25 cholecalciferol (vitamin D3) 1,250 mcg (50,000 unit) capsule 1,250 mcg PO QWEEK bone health 02/25/25 semaglutide 1 mg/dose (4 mg/3 mL) subcutaneous pen injector (Ozempic) 1 mg subcut QWEEK weight loss 02/25/25 doxycycline hyclate 100 mg capsule 100 mg PO BID 5 days #10 caps 02/26/25 prednisone 20 mg tablet See Taper PO BREAKFAST #32 tabs 02/26/25 escitalopram oxalate 20 mg tablet 20 mg PO DAILY MENTAL HEALTH 03/01/25 Hospital Course Operations None Procedures None Summary of Care Provided Minutes Spent on Discharge: 32 Hospital Course: Per HPI: GARTH MACK, is a 59 F who presents to the emergency room at [facility] with complaints of generalized weakness and decreased ability to perform ADLs. Patient had a fall at home but denies any injuries. She had been hospitalized recently here from 02/24/2025 through 02/26/2025 and was discharged home having declined short-term ECF placement. Her father is helping take care of her at home, but she cannot get up without maximal assistance. Patient is on 3-1/2 L of oxygen at home at all times and according to the patient she has a diagnosis of COPD. Labs obtained in the emergency room showed normal white blood cell count, hemoglobin was 9.8, chemistry profile was unremarkable except for a glucose of 309. Chest x-ray performed today showed cardiomegaly with pulmonary vascular congestion. Patient will be placed in observation status on [facility] 3, she will be seen by PT and OT, patient has no objections to going to a longterm facility for short-term rehab services at this time. Hospital Course: 1. Generalized weakness and failure to thrive after recent admission for COPD exacerbation secondary to RSV/chronic hypoxic respiratory failure ? She is on 3 L nasal cannula at baseline ? Continue with PT/OT ? COPD exacerbation has resolved however too debilitated to stay at home she was discharged initially came back within 48 hours because of her inability to complete ADLs and take care of herself ? She received pre-CERT today and will be discharged on her home medications. Will continue with her steroid taper from her previous discharge on 02/26/2025. I discussed with her the plan for discharge and she expressed understanding of the risk benefits of going to the [facility] and is okay with going today. Of note she had some diarrhea overnight which was tested and it was negative for C. difficile or any enteric bacteria. She also completed her doxycycline while here in the hospital. 2. Essential HTN ? Continue with her home blood pressure medications ? Will monitor make adjustments as necessary 3. DM2/morbid obesity ? Continue with insulin ? Accu-Cheks ACH S ? Will monitor make adjustments as necessary ? Lifestyle management discussed, BMI of 48.5 4. Bipolar with anxiety ? Stable ? Continue with her home medications Physical Exam Narrative General: Alert, Oriented x3, Cooperative, No apparent distress HEENT: Atraumatic, PERRLA, EOMI, Normocephalic Oral: Moist Mucosa Neck: Supple, No JVD Lungs: Diminished, Normal air movement, No rhonchi, No wheeze, No rales Cardiovascular: Regular rate, Regular Rhythm, Normal S1, Normal S2, No murmurs Abdomen: Soft, Non Tender, Non-Distended, No Hepato-splenomegaly Extremities: No edema, Capillary Refill Less than 3 Seconds Skin: No rashes, No breakdown Musculoskeletal: No Tenderness to Palpation of Joints or Extremities Neurological: No focal neurological deficits, Motor Exam 5/5 strength throughout, Sensory exam intact to light touch and pain Psych/Mental Status: Normal Affect, Appropriate Weight / BMI Weight Weight: 291 lb 4.8 oz Body Mass Index (BMI) 48.4 ABG / Lab / Microbiology Data 03/03/25 06:30 03/03/25 06:30 Laboratory: Laboratory Results - last 24 hr 03/02/25 16:35: POC Glucose 332 H 03/02/25 20:17: POC Glucose 341 H 03/03/25 06:30: WBC 6.3, RBC 3.90 L, Hgb 9.7 L, Hct 32.6 L, MCV 83.6, MCH 24.9 L , MCHC 29.8 L, RDW Std Deviation 50.1 H, RDW Coeff of Jocy 17.2 H, Plt Count 200, MPV 8.9, Sodium 138, Potassium 3.7, Chloride 95 L, Carbon Dioxide 35.1 H, Anion Gap 9, BUN 20 H, Creatinine 0.68 L, Estim Creat Clear Calc 119.39, Est GFR (MDRD) Non-Af 99, BUN/Creatinine Ratio 28.6 H, Glucose 151 H, Calcium 8.8 03/03/25 11:35: POC Glucose 145 H Microbiology: Microbiology 03/02/25 18:49 Stool Enteric Bacteriology - Final 03/02/25 18:49 Stool Clostridioides difficile (PCR) - Final Radiography Diagnostic Testing: Radiology Impression Hip/Pelvis X-Ray 03/02/25 15:19 IMPRESSION: No acute fracture or dislocation. Reading Location: [facility] D/C Instructions DC O2, CPAP, BIPAP Needs Home O2 Discharge instructions: No Meaningful Use Info Meaningful Use Meaningful Use Diagnoses (Choose all that apply): None applicable Ischemic Stroke Statin Dosing Therapy Reference: STATIN DOSE THERAPY REFERENCE: * Patients > 75 years receive moderate or high dose statin therapy. * Patients 75 years or YOUNGER should receive HIGH intensity statin dose unless contraindicated. You will be required to document reason for non-treatment if statin daily dose does not meet guidelines. HIGH DOSE STATIN THERAPY DAILY Atorvastatin > than or = to 40 mg Rosuvastatin > than or = to 20 mg Amlodipine + Atorvastatin > than or = to 2.5/40 mg Ezetimibe + Simvastatin 10/80 mg Simvastatin 80mg Discharge Plan Admission Admit Date/Time: 03/01/25 14:16 Attending Provider: Salinas Heard Primary Care Provider: Cristal Wolf Consulting Providers: Phil Velazquez; Jenni Swartz Discharge Orders/Prescriptions Prescriptions: Continued omeprazole 40 mg capsule,delayed release(DR/EC) 40 mg PO DAILY oxybutynin chloride 10 mg tablet extended release 24hr 15 mg PO DAILY Invega Sustenna 117 mg/0.75 mL syringe 117 mg IM Q21D pregabalin 150 mg capsule 150 mg PO TID ergocalciferol (vitamin D2) [Vitamin D2] 1,250 mcg (50,000 unit) capsule 50,000 unit PO QMONTH insulin lispro 100 unit/mL insulin pen See Rx Instructions subcut QAC Rx Instructions: 14 units with breakfast ,16units with lunch, 24units with diner bupropion HCl 300 MG tablet extended release 24 hr 450 mg PO DAILY Patient Comments: DEPRESSION albuterol sulfate 1 INHALER inhaler 2 puff INHALATION Q4H PRN (Reason: Sob &/Or Wheezing) dicyclomine 10 MG capsule 20 mg PO TIDAC Qty: 20 0RF fluticasone propionate 1 SPRAY spray,suspension 2 spray NASAL DAILY tizanidine 4 MG capsule 4 mg PO BID PRN (Reason: Muscle Spasm) aspirin 81 MG tablet,chewable 81 mg PO DAILY@0800 0RF insulin glargine [Lantus Solostar U-100 Insulin] 100 unit/mL (3 mL) insulin pen 74 unit SUBCUT QHS cetirizine [Zyrtec] 10 mg Tablet 10 mg PO DAILY triamcinolone acetonide 0.1 % Cream 1 applic TOPICAL TID PRN (Reason: Rash) primidone 250 mg Tablet 750 mg PO QHS lorazepam [Ativan] 0.5 mg Tablet 0.5 - 1 mg PO BID PRN (Reason: Panic Attack(S)) hyoscyamine sulfate [Levsin] 0.125 mg Tablet 0.125 mg PO Q6H PRN (Reason: IBS) buspirone 10 mg Tablet 20 mg PO TID colchicine 0.6 mg Tablet 0.6 mg PO DAILY hydroxyzine pamoate [Vistaril] 25 mg Capsule 25 - 75 mg PO BID PRN (Reason: Itching) guaifenesin [Mucinex] 600 mg Tablet Extended Release 12hr 1,200 mg PO BID PRN (Reason: Cough) fluticasone propion-salmeterol 500-50 mcg/dose blister with device 1 inh INHALATION BID lactulose 10 gram/15 mL solution 60 ml PO BID PRN (Reason: Constipation) naratriptan 2.5 mg tablet See Rx Instructions .ROUTE .COMPLEX Rx Instructions: take 1 tab at onset of headache; if no relief may repeat 1 tab after at least 4 hrs; max = 2 tabs/24 hrs ondansetron 4 MG tablet 4 mg PO Q8H PRN (Reason: Nausea) lisinopril 10 mg tablet 10 mg PO BID trazodone 150 mg tablet 150 mg PO QHS bisacodyl [Gentle Laxative (bisacodyl)] 5 mg tablet,delayed release (DR/EC) 5 mg PO QHS PRN (Reason: constipation) 5 Days Qty: 10 0RF escitalopram oxalate 20 mg tablet 20 mg PO DAILY albuterol sulfate 2.5 mg /3 mL (0.083 %) solution for nebulization 2.5 mg inhalation Q6H PRN (Reason: shortness of breath or wheezing) cholecalciferol (vitamin D3) 1,250 mcg (50,000 unit) capsule 1,250 mcg PO QWEEK Ozempic 1 mg/dose (4 mg/3 mL) pen injector 1 mg subcut QWEEK prednisone 20 mg Tablet See Taper PO BREAKFAST Qty: 32 0RF Taper: Prednisone Taper 60 mg WITH BREAKFAST for 3 Days and 0 Hour 50 mg WITH BREAKFAST for 3 Days and 0 Hour 40 mg WITH BREAKFAST for 3 Days and 0 Hour 30 mg WITH BREAKFAST for 3 Days and 0 Hour 20 mg WITH BREAKFAST for 3 Days and 0 Hour 10 mg WITH BREAKFAST for 3 Days and 0 Hour doxycycline hyclate 100 mg capsule 100 mg PO BID 5 Days Qty: 10 0RF Patient Comments: STARTED 02/26/25. nadolol 80 mg tablet 80 mg PO BID Referrals / Follow Up: Cristal Wolf MD [Primary Care Provider] - Disposition Disposition (needs filled in before D/C Order can be placed): [facility] Facility Charges/Coding Visit Charges Inpatient E&M: 26421 Disch Hosp >30min
--- NOTE | 2025-03-03 15:39 | CASEMGMT ---
Discharge Planning Discharge orders, signed med list and transport time sent to [facility]. Physicians will transport pt by wheelchair at 4p. Nursing, SW, and pt updated. SW will update pts dad. Nat Gtz DC Planning Asst.
--- NOTE | 2025-03-03 16:00 | NURSING ---
Nurse to nurse report given to Ayala at [facility]. 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
--- NOTE | 2025-03-03 16:57 | CASEMGMT ---
Social Work- SHIVA faxed d/c instructions to MICHAEL Chaudhry CM. SHIVA called Richa to update on d/c as well. MADAN Key
== END 2025-03-03 16:48 | disposition skilled nursing facility (03) ==
LOC: ED 12:52 → MS3 14:50
PROVIDERS: Internal Medicine; Physician Assistant; Admitting Provider Internal Medicine; Emergency Provider Emergency Medicine; PCP Internal Medicine; Visit Provider Family Medicine
DX: R62.7 Adult failure to thrive (principal); L89.892 Pressure ulcer of other site, stage 2; F25.9 Schizoaffective disorder, unspecified; J96.11 Chronic respiratory failure with hypoxia; I27.20 Pulmonary hypertension, unspecified; F31.9 Bipolar disorder, unspecified; J44.9 Chronic obstructive pulmonary disease, unspecified; Z68.42 Body mass index [BMI] 45.0-49.9, adult; E66.01 Morbid (severe) obesity due to excess calories; E66.813 Obesity, class 3; E11.51 Type 2 diabetes mellitus with diabetic peripheral angiopathy without gangrene; Z79.4 Long term (current) use of insulin; R53.1 Weakness; R19.7 Diarrhea, unspecified; K21.9 Gastro-esophageal reflux disease without esophagitis; G89.4 Chronic pain syndrome; F43.10 Post-traumatic stress disorder, unspecified; I10 Essential (primary) hypertension; R29.6 Repeated falls; M25.551 Pain in right hip; G43.909 Migraine, unspecified, not intractable, without status migrainosus; G47.33 Obstructive sleep apnea (adult) (pediatric); F41.9 Anxiety disorder, unspecified; Z99.81 Dependence on supplemental oxygen; Z79.82 Long term (current) use of aspirin; Z79.85 Long-term (current) use of injectable non-insulin antidiabetic drugs; Z79.899 Other long term (current) drug therapy; Z91.199 Patient's noncompliance with other medical treatment and regimen due to unspecified reason
CPT/HCPCS: 36415; 71045; 73521; 80048; 82962; 85027; 87493; 87506; 94640; 96361; 96372; 96374; 97162; 97165; 97530; 97535; 99221; 99285; A4216; G0378

== ENCOUNTER → 2025-03-04 | Outpatient (REF) | payer MEDICAID, SELFPAY ==
[2025-03-04 08:18] LABS: Hematocrit 32.4 % (37-47); Hemoglobin 9.6 g/dL (12.0-15.0); Mean Corp Hgb Conc 29.6 g/dL (32-36); Mean Corpuscular Hgb 24.6 pg (27.0-32.0); Mean Corpuscular Volume 83.1 fL (81-99); Mean Platelet Vol. 9.9 fl (6.2-12.0); Platelet Count 207 K/mm3 (150-450); RBC Distribution Width CV 17.4 % (11.6-14.6); RBC Distribution Width SD 51.4 fl (35.1-43.9); White Blood Count 6.4 K/mm3 (4.4-11.0)
[2025-03-04 08:30] LABS: ALB/GLOB Ratio 1.2 RATIO (0.9-2.4); AST(SGOT) 17 U/L (<=31); Alanine Aminotransfer ALT/SGPT 18 U/L (<=34); Albumin, Serum 3.7 g/dL (3.4-4.8); Alkaline Phosphatase 60 U/L (35-104); Anion Gap 10 (5-15); BUN 19 mg/dL (4-19); BUN/Creat Ratio 27.2 RATIO (10-20); Calcium,Total 8.8 mg/dL (7.6-11.0); Chloride 94 mmol/L (98-108); Creatinine, Serum 0.69 mg/dL (0.70-1.20); EST Glomerular Filtration Rate 99 (>60); Glucose 272 mg/dL (70-99); Potassium 3.8 mmol/L (3.3-5.1); Protein, Total 6.7 g/dL (5.9-8.4); Sodium Level 138 mmol/L (133-145); Total Bilirubin 0.26 mg/dL (0.00-1.30)
== END | disposition home or self-care (01) ==
LOC: OLS.SW 05:00
PROVIDERS: PCP Internal Medicine; Visit Provider Internal Medicine
DX: E11.9 Type 2 diabetes mellitus without complications (principal)
CPT/HCPCS: 36415; 80053; 85027

== ENCOUNTER → 2025-03-07 | Outpatient (REF) | payer MEDICAID, SELFPAY ==
[2025-03-07 07:26] LABS: Hematocrit 31.2 % (37-47); Hemoglobin 9.3 g/dL (12.0-15.0); Mean Corp Hgb Conc 29.8 g/dL (32-36); Mean Corpuscular Hgb 25.9 pg (27.0-32.0); Mean Corpuscular Volume 86.9 fL (81-99); Mean Platelet Vol. 10.4 fl (6.2-12.0); Platelet Count 168 K/mm3 (150-450); RBC Distribution Width CV 18.4 % (11.6-14.6); RBC Distribution Width SD 57.2 fl (35.1-43.9); Red Blood Count 3.59 M/mm3 (4.2-5.4); White Blood Count 6.5 K/mm3 (4.4-11.0)
[2025-03-07 07:34] LABS: Hemoglobin A1c 9.4 % (<=5.6)
[2025-03-07 08:54] LABS: Thyroid Stim Hormone (TSH) 0.877 uIU/mL (0.300-4.200); Vitamin B12 500 pg/mL (180-914)
[2025-03-07 08:55] LABS: ALB/GLOB Ratio 1.2 RATIO (0.9-2.4); AST(SGOT) 20 U/L (<=31); Alanine Aminotransfer ALT/SGPT 15 U/L (<=34); Albumin, Serum 3.2 g/dL (3.4-4.8); Alkaline Phosphatase 60 U/L (35-104); Anion Gap 14 (5-15); BUN 34 mg/dL (4-19); BUN/Creat Ratio 30.3 RATIO (10-20); Calcium,Total 8.6 mg/dL (7.6-11.0); Carbon Dioxide 24.7 mmol/L (21.0-32.0); Chloride 98 mmol/L (98-108); Creatinine, Serum 1.13 mg/dL (0.70-1.20); EST Glomerular Filtration Rate 55 (>60); Globulin 2.6 g/dL (2.2-4.2); Glucose 94 mg/dL (70-99); Potassium 4.2 mmol/L (3.3-5.1); Protein, Total 5.9 g/dL (5.9-8.4); Sodium Level 136 mmol/L (133-145); Total Bilirubin 0.23 mg/dL (0.00-1.30)
== END | disposition home or self-care (01) ==
LOC: OLS.SW 05:00
PROVIDERS: PCP Internal Medicine; Visit Provider Internal Medicine
DX: Z02.2 Encounter for examination for admission to residential institution (principal); E11.65 Type 2 diabetes mellitus with hyperglycemia; J44.1 Chronic obstructive pulmonary disease with (acute) exacerbation
CPT/HCPCS: 36415; 80053; 82607; 83036; 83735; 84443; 85027

== ENCOUNTER → 2025-03-14 | Outpatient (REF) | payer MEDICAID, SELFPAY ==
[2025-03-14 08:31] LABS: Hematocrit 28.1 % (37-47); Hemoglobin 8.4 g/dL (12.0-15.0); Mean Corp Hgb Conc 29.9 g/dL (32-36); Mean Corpuscular Hgb 25.7 pg (27.0-32.0); Mean Corpuscular Volume 85.9 fL (81-99); Mean Platelet Vol. 11.3 fl (6.2-12.0); Platelet Count 144 K/mm3 (150-450); RBC Distribution Width CV 17.8 % (11.6-14.6); Red Blood Count 3.27 M/mm3 (4.2-5.4); White Blood Count 4.7 K/mm3 (4.4-11.0)
[2025-03-14 09:18] LABS: ALB/GLOB Ratio 1.2 RATIO (0.9-2.4); AST(SGOT) 20 U/L (<=31); Alanine Aminotransfer ALT/SGPT 20 U/L (<=34); Albumin, Serum 3.2 g/dL (3.4-4.8); Alkaline Phosphatase 48 U/L (35-104); Anion Gap 9 (5-15); BUN 16 mg/dL (4-19); BUN/Creat Ratio 25.7 RATIO (10-20); Calcium,Total 8.9 mg/dL (7.6-11.0); Carbon Dioxide 31.5 mmol/L (21.0-32.0); Chloride 98 mmol/L (98-108); Creatinine, Serum 0.63 mg/dL (0.70-1.20); EST Glomerular Filtration Rate 101 (>60); Globulin 2.7 g/dL (2.2-4.2); Glucose 69 mg/dL (70-99); Magnesium 1.9 mg/dL (1.5-2.2); Potassium 4.4 mmol/L (3.3-5.1); Protein, Total 5.8 g/dL (5.9-8.4); Sodium Level 139 mmol/L (133-145); Total Bilirubin 0.15 mg/dL (0.00-1.30)
== END | disposition home or self-care (01) ==
LOC: OLS.SW 05:00
PROVIDERS: PCP Internal Medicine; Visit Provider Internal Medicine
DX: J44.1 Chronic obstructive pulmonary disease with (acute) exacerbation (principal); E11.65 Type 2 diabetes mellitus with hyperglycemia
CPT/HCPCS: 36415; 80053; 83735; 85027

== ENCOUNTER → 2025-03-21 | Outpatient (REF) | payer MEDICAID, SELFPAY ==
[2025-03-21 06:16] LABS: Hematocrit 25.7 % (37-47); Hemoglobin 7.6 g/dL (12.0-15.0); Mean Corp Hgb Conc 29.6 g/dL (32-36); Mean Corpuscular Hgb 25.3 pg (27.0-32.0); Mean Corpuscular Volume 85.7 fL (81-99); Mean Platelet Vol. 11.5 fl (6.2-12.0); Platelet Count 118 K/mm3 (150-450); RBC Distribution Width CV 18.3 % (11.6-14.6); RBC Distribution Width SD 57.3 fl (35.1-43.9); White Blood Count 4.1 K/mm3 (4.4-11.0)
[2025-03-21 07:52] LABS: Vitamin D,25 Hydroxy 37.2 ng/mL (30-100)
[2025-03-21 07:54] LABS: ALB/GLOB Ratio 1.3 RATIO (0.9-2.4); AST(SGOT) 19 U/L (<=31); Alanine Aminotransfer ALT/SGPT 24 U/L (<=34); Albumin, Serum 3.2 g/dL (3.4-4.8); Alkaline Phosphatase 46 U/L (35-104); Anion Gap 9 (5-15); BUN 31 mg/dL (4-19); BUN/Creat Ratio 32.4 RATIO (10-20); Calcium,Total 8.6 mg/dL (7.6-11.0); Carbon Dioxide 30.7 mmol/L (21.0-32.0); Chloride 100 mmol/L (98-108); Creatinine, Serum 0.96 mg/dL (0.70-1.20); EST Glomerular Filtration Rate 67 (>60); Globulin 2.5 g/dL (2.2-4.2); Glucose 71 mg/dL (70-99); Potassium 4.7 mmol/L (3.3-5.1); Protein, Total 5.8 g/dL (5.9-8.4); Sodium Level 139 mmol/L (133-145); Total Bilirubin < 0.15 mg/dL (0.00-1.30)
== END | disposition home or self-care (01) ==
LOC: OLS.SW 05:00
PROVIDERS: PCP Internal Medicine; Visit Provider Internal Medicine
DX: J44.9 Chronic obstructive pulmonary disease, unspecified (principal); E11.9 Type 2 diabetes mellitus without complications; I10 Essential (primary) hypertension
CPT/HCPCS: 36415; 80053; 82306; 83735; 85027

== ENCOUNTER → 2025-03-24 | Outpatient (REF) | payer MEDICAID, SELFPAY ==
[2025-03-24 09:55] LABS: Hematocrit 26.7 % (37-47); Mean Corpuscular Hgb 25.4 pg (27.0-32.0); Mean Corpuscular Volume 84.8 fL (81-99); Mean Platelet Vol. 10.7 fl (6.2-12.0); Platelet Count 125 K/mm3 (150-450); Red Blood Count 3.15 M/mm3 (4.2-5.4); White Blood Count 3.9 K/mm3 (4.4-11.0)
== END | disposition home or self-care (01) ==
LOC: OLS.SW 07:15
PROVIDERS: PCP Internal Medicine; Visit Provider Internal Medicine
DX: D64.9 Anemia, unspecified (principal)
CPT/HCPCS: 36415; 85027

== ENCOUNTER → 2025-03-28 | Outpatient (REF) | payer MEDICAID, SELFPAY ==
[2025-03-28 07:38] LABS: Hematocrit 25.6 % (37-47); Hemoglobin 7.5 g/dL (12.0-15.0); Mean Corp Hgb Conc 29.3 g/dL (32-36); Mean Corpuscular Volume 85.3 fL (81-99); Mean Platelet Vol. 11.1 fl (6.2-12.0); Platelet Count 124 K/mm3 (150-450); RBC Distribution Width CV 17.7 % (11.6-14.6); RBC Distribution Width SD 55.5 fl (35.1-43.9); White Blood Count 3.3 K/mm3 (4.4-11.0)
== END | disposition home or self-care (01) ==
LOC: OLS.SW 05:00
PROVIDERS: PCP Internal Medicine; Visit Provider Internal Medicine
DX: E11.9 Type 2 diabetes mellitus without complications (principal); J44.1 Chronic obstructive pulmonary disease with (acute) exacerbation; J96.11 Chronic respiratory failure with hypoxia
CPT/HCPCS: 36415; 85027

== ENCOUNTER → 2025-04-03 05:00 | Outpatient (REF) | payer MEDICAID, SELFPAY ==
[2025-04-03 08:21] LABS: Hematocrit 25.8 % (37-47); Hemoglobin 7.7 g/dL (12.0-15.0); Mean Corp Hgb Conc 29.8 g/dL (32-36); Mean Corpuscular Hgb 25.5 pg (27.0-32.0); Mean Corpuscular Volume 85.4 fL (81-99); Mean Platelet Vol. 10.6 fl (6.2-12.0); Platelet Count 121 K/mm3 (150-450); RBC Distribution Width CV 17.5 % (11.6-14.6); RBC Distribution Width SD 54.4 fl (35.1-43.9); Red Blood Count 3.02 M/mm3 (4.2-5.4); White Blood Count 3.2 K/mm3 (4.4-11.0)
[2025-04-03 08:37] LABS: ALB/GLOB Ratio 1.3 RATIO (0.9-2.4); AST(SGOT) 18 U/L (<=31); Alanine Aminotransfer ALT/SGPT 22 U/L (<=34); Albumin, Serum 3.6 g/dL (3.4-4.8); Alkaline Phosphatase 52 U/L (35-104); Anion Gap 9 (5-15); BUN 20 mg/dL (4-19); BUN/Creat Ratio 29.4 RATIO (10-20); Calcium,Total 9.1 mg/dL (7.6-11.0); Carbon Dioxide 30.6 mmol/L (21.0-32.0); Chloride 99 mmol/L (98-108); Creatinine, Serum 0.68 mg/dL (0.70-1.20); EST Glomerular Filtration Rate 99 (>60); Globulin 2.7 g/dL (2.2-4.2); Glucose 136 mg/dL (70-99); Potassium 4.6 mmol/L (3.3-5.1); Protein, Total 6.2 g/dL (5.9-8.4); Sodium Level 139 mmol/L (133-145); Total Bilirubin < 0.15 mg/dL (0.00-1.30)
== END ==
LOC: OLS.SW 05:00
PROVIDERS: PCP Internal Medicine; Visit Provider Internal Medicine
DX: Z00.00 Encounter for general adult medical examination without abnormal findings (principal)
CPT/HCPCS: 36415; 80053; 85027

== ENCOUNTER → 2025-04-08 | Outpatient (REF) | payer MEDICAID, SELFPAY ==
[2025-04-08 08:32] LABS: Hematocrit 25.6 % (37-47); Hemoglobin 7.7 g/dL (12.0-15.0); Mean Corp Hgb Conc 30.1 g/dL (32-36); Mean Corpuscular Hgb 25.7 pg (27.0-32.0); Mean Corpuscular Volume 85.3 fL (81-99); Mean Platelet Vol. 11.3 fl (6.2-12.0); Platelet Count 144 K/mm3 (150-450); RBC Distribution Width CV 17.2 % (11.6-14.6); RBC Distribution Width SD 53.8 fl (35.1-43.9); White Blood Count 3.6 K/mm3 (4.4-11.0)
[2025-04-08 09:09] LABS: ALB/GLOB Ratio 1.3 RATIO (0.9-2.4); AST(SGOT) 18 U/L (<=31); Alanine Aminotransfer ALT/SGPT 22 U/L (<=34); Albumin, Serum 3.4 g/dL (3.4-4.8); Alkaline Phosphatase 53 U/L (35-104); Anion Gap 10 (5-15); BUN 22 mg/dL (4-19); Calcium,Total 8.9 mg/dL (7.6-11.0); Carbon Dioxide 29.3 mmol/L (21.0-32.0); Chloride 100 mmol/L (98-108); EST Glomerular Filtration Rate 98 (>60); Globulin 2.7 g/dL (2.2-4.2); Glucose 102 mg/dL (70-99); Potassium 4.4 mmol/L (3.3-5.1); Protein, Total 6.1 g/dL (5.9-8.4); Sodium Level 139 mmol/L (133-145); Total Bilirubin 0.15 mg/dL (0.00-1.30)
== END | disposition home or self-care (01) ==
LOC: OLS.SW 05:00
PROVIDERS: PCP Internal Medicine; Visit Provider Internal Medicine
DX: D64.9 Anemia, unspecified (principal); J44.9 Chronic obstructive pulmonary disease, unspecified
CPT/HCPCS: 36415; 80053; 85027

== ENCOUNTER 2025-04-21 17:34 | Observation (INO) | payer MEDICAID, SELFPAY ==
[2025-04-21 17:36] VITALS: BP 155/93; PULSE 79; RESP 16; TEMP 37.1; O2SAT 96
--- NOTE | 2025-04-21 20:25 | EKG12_ITS ---
Test Reason : FALL Blood Pressure : */* mmHG Vent. Rate : 76 BPM Atrial Rate : 76 BPM P-R Int : 178 ms QRS Dur : 102 ms QT Int : 352 ms P-R-T Axes : 46 -1 -8 degrees QTcB Int : 396 ms Normal sinus rhythm [address] & T wave abnormality, consider anterior ischemia Abnormal ECG Confirmed by Lamont Melendez ([id number]), sports editor KARMEN ORTZI ([id number]) on 04/22/2025 10:02:30 AM Referred By: Confirmed By: Lamont Melendez
--- NOTE | 2025-04-21 20:26 | ED.VIS.FALL ---
HPI HPI - Fall History of Present Illness Chief Complaint: Fall Narrative Narrative: 59-year-old female past medical history of COPD wears 3 to 4 L of oxygen at home, presents status post fall today. She complains of generalized weakness and inability to care for herself. She presents with her father and they relate history that she was diagnosed with RSV previously. She was hospitalized and went to [facility] [place]. She was released from there, had a fall again and then was readmitted to the hospital then was at [facility] [place] again for 6 to 7 weeks. She was discharged approximately 7 days ago, last Monday. She relates history that she had a fall today. She was in a seated position and the chair tipped backwards. She did not hit her head or lose consciousness. She was able to call EMS who helped her get up. She did not want transport at that time. However, she feels that she is unable to take care of herself at home. 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 coli infection Schizophrenia Diabetes PTSD (post-traumatic stress disorder) Depression Schizo affective schizophrenia Other specified peripheral vascular diseases Essential hypertension Chest pain Diabetes mellitus type 2, uncontrolled, with complications Back pain Asthma Knee pain Migraines Fatigue Hemorrhoids COPD (chronic obstructive pulmonary disease) Arthritis Pain syndrome, chronic Bipolar disorder Obstructive sleep apnea Stasis dermatitis of both legs Venous insufficiency of both lower extremities Super obese Open wound of left lower extremity GERD (gastroesophageal reflux disease) Benign hypertension ADHD (attention deficit hyperactivity disorder) Home Medications ?Medication ?Instructions ?Recorded ?Last Taken ?Type bupropion HCl 300 mg 24 hr tablet, 450 mg PO DAILY mental health 03/05/17 10/03/24 History extended release albuterol sulfate 90 mcg/actuation 2 puff inhalation Q4H PRN Sob &/Or 05/29/18 07/07/18 History aerosol inhaler Wheezing fluticasone propionate 50 2 spray NASAL DAILY allergies 08/04/19 10/03/24 History mcg/actuation nasal spray,suspension aspirin 81 mg chewable tablet 81 mg PO DAILY@0800 heart health 07/17/20 10/03/24 Rx buspirone 10 mg tablet 20 mg PO TID mood 01/25/22 10/03/24 History cetirizine 10 mg tablet (Zyrtec) 10 mg PO DAILY allergies 01/25/22 10/03/24 History colchicine 0.6 mg tablet 0.6 mg PO DAILY gout 01/25/22 10/03/24 History guaifenesin 600 mg tablet, 1,200 mg PO BID PRN Cough 01/25/22 Unknown History extended release 12 hr (Mucinex) lorazepam 0.5 mg tablet (Ativan) 0.5 - 1 mg PO BID PRN Panic 01/25/22 Unknown History Attack(S) primidone 250 mg tablet 750 mg PO QHS seizures 01/25/22 10/03/24 History triamcinolone acetonide 0.1 % 1 applic topical TID PRN Rash 01/25/22 Unknown History topical cream fluticasone 500 mcg-salmeterol 50 1 inh inhalation BID breathing 05/02/22 10/03/24 History mcg/dose blistr powdr for inhalation omeprazole 40 mg capsule,delayed 40 mg PO DAILY gerd 05/02/22 10/03/24 History release oxybutynin chloride 10 mg 15 mg PO DAILY bladder 05/02/22 10/03/24 History tablet,extended release 24 hr ergocalciferol (vitamin D2) 1,250 50,000 unit PO QMONTH bone health 08/10/22 10/03/24 History mcg (50,000 unit) capsule (Vitamin D2) lactulose 10 gram/15 mL oral 60 ml PO BID PRN Constipation 08/10/22 Unknown History solution pregabalin 150 mg capsule 150 mg PO TID pain 08/10/22 10/03/24 History ondansetron 4 mg disintegrating 4 mg PO Q8H PRN Nausea 10/03/24 Unknown History tablet trazodone 150 mg tablet 150 mg PO QHS sleep 10/03/24 10/02/24 History bisacodyl 5 mg tablet,delayed 5 mg PO QHS PRN constipation 5 10/30/24 Unknown Rx release (Gentle Laxative days #10 tabs (bisacodyl)) albuterol sulfate 2.5 mg/3 mL 2.5 mg inhalation Q6H PRN 02/25/25 Unknown History (0.083 %) solution for nebulization shortness of breath or wheezing escitalopram oxalate 20 mg tablet 20 mg PO DAILY MENTAL HEALTH 03/01/25 Unknown History aluminum-mag hydroxide-simethicone 5 ml PO ONCE 04/15/25 Unknown History 200 mg-200 mg-20 mg/5 mL oral susp (Antacid) furosemide 80 mg tablet 80 mg PO QAM 04/15/25 Unknown History magnesium hydroxide 400 mg/5 mL 15 ml PO QDAY PRN 04/15/25 Unknown History oral suspension (Milk of Magnesia) midodrine 2.5 mg tablet 2.5 mg PO ONCE 04/15/25 Unknown History paliperidone palmitate 117 mg/0.75 117 mg IM Q30D 04/15/25 Unknown History mL intramuscular syringe (Invega Sustenna) acetaminophen 500 mg tablet 1,000 mg PO TID 04/17/25 Unknown History cyclobenzaprine 10 mg tablet 10 mg PO HS PRN 04/17/25 Unknown History insulin glargine 100 unit/mL (3 82 unit subcut QHS diabetes 04/17/25 Unknown History mL) subcutaneous pen (Lantus Solostar U-100 Insulin) insulin lispro 100 unit/mL See Rx Instructions subcut QAC DM 04/17/25 Unknown History subcutaneous pen insulin lispro 100 unit/mL 1 sliding scale dose subcut 04/17/25 Unknown History subcutaneous pen (Humalog KwikPen USEASDIRECTD (U-100) Insulin) lidocaine 4 % topical patch 1 patch topical QDAY 04/17/25 Unknown History (Aspercreme (lidocaine)) lisinopril 10 mg tablet 5 mg PO BID blood pressure 04/17/25 Unknown History nadolol 80 mg tablet 40 mg PO BID high blood pressure 04/17/25 Unknown History allopurinol 100 mg tablet 100 mg PO DAILY 04/21/25 04/21/25 History bupropion HCl 150 mg 24 hr tablet, 450 mg PO DAILY 04/21/25 04/21/25 History extended release Allergy/AdvReac Type Severity Reaction Status Date / Time meloxicam Allergy Severe Anaphylaxis Verified 04/21/25 17:35 vancomycin Allergy Severe BURNING Verified 04/21/25 17:35 RED RASH ON LEGGS amlodipine (From Norvasc) Allergy Swelling Verified 04/21/25 17:35 cefazolin sodium (From Anc) Allergy Hives Verified 04/21/25 17:35 fexofenadine (From Nia) Allergy Shortness Verified 04/21/25 17:35 of breath nitrofurantoin (From Allergy Hives Verified 04/21/25 17:35 Macrobid) peanut Allergy Shortness Verified 04/21/25 17:35 of breath Penicillins Allergy Hives Verified 04/21/25 17:35 sumatriptan (From Imitrex) Allergy Shortness Verified 04/21/25 17:35 of breath adhesive AdvReac BURNING Verified 04/21/25 17:35 amitriptyline (From Elavil) AdvReac Other Verified 04/21/25 17:35 clindamycin AdvReac Diarrhea Verified 04/21/25 17:35 ziprasidone (From Geodon) AdvReac NEEDS Verified 04/21/25 17:35 FOLLOW-UP Family History Father CVA (cerebral vascular accident) Heart disease Mother Heart disease Surgical History History of elbow surgery (~06/2020) History of arthroscopic knee surgery History of left heart catheterization (07/16/20) Kidney stone H/O hernia repair Hx of hysterectomy Hx of section Social History household members: family housing: house Smoking Status: Never smoker alcohol intake: never substance use type: does not use caffeine: Yes (occasionally) ROS ROS ED ROS Narrative Inability to take care of herself. Had fall today off of chair, but denies any injury, no hip pain, no hitting of head, no loss of consciousness, no neck pain. Lives at home alone, and father states that patient has no care at night. EXAM Physical Exam Narrative Exam Narrative: Afebrile. Vital signs noted. Nontoxic-appearing. Cardiovascular examination reveals a regular rate and rhythm. Lungs are clear to auscultation bilaterally. Abdomen is soft, nontender, and obese. No guarding or rebound. Neurological examination nonfocal nonlateralizing. Const Vital Signs: 04/21/25 17:36 04/21/25 20:56 04/21/25 20:59 Temperature 98.7 F Temperature Source Oral Pulse Rate 79 Respiratory Rate 16 Respiratory Effort Normal Non-Labored Respiratory Depth Normal Respiratory Pattern Normal Blood Pressure 155/93 H 182/85 H Blood Pressure Mean 113 117 Pulse Ox 96 100 Oxygen Delivery Method Nasal Cannula Nasal Cannula Oxygen Flow Rate (L/min) 3 3 MDM MDM MDM Narrative Medical decision making narrative: I do feel differential diagnosis is not applicable in this case. Her father states that he gets a phone call every time there is a problem, and that she lives at home alone and is unable to care for herself. She has frequent falls at home as well. Patient states that she chose to leave [facility] [place] because she thought she could take care of herself, but realizes that she was in error. She would like to return to [facility] [place]. I will obtain baseline screening examinations, and consult social work to see what she may qualify for again. I reviewed her laboratory work and she has normal white count of 6.0, hemoglobin 8.2, but when compared to prior labs, she has chronic anemia, hematocrit 26.7, platelet count slightly low at 145 which I think is nonspecific. Once again, compared to prior labs she has chronic thrombocytopenia. Review of her electrolyte panel shows chloride 96 which think is nonspecific, BUN of 13 and creatinine 0.57, glucose elevated to 57 but anion gap normal at 10 so I doubt diabetic ketoacidosis. Urinalysis is negative for infection with 0-5 WBCs and 0 bacteria. I do not feel antibiotics are indicated. Chest x-ray interpreted by myself independently shows no evidence of an acute process, no consolidation or pneumonia, no pneumothorax. I reviewed the radiology report which confirms my independent interpretation and comments on interstitial edema and cardiomegaly. EKG was obtained and interpreted by myself independently as normal sinus rhythm at 76 bpm without ectopy or acute ST changes. No STEMI. After discussion with case management/social work, patient does not require a 3-day stay and can be observed. I discussed patient with the hospitalist, Dr. Jessica Rebolledo for observation. Patient is in stable condition. History & Record Review Discussion w/independent historian: Patient and Family Lab Data Attestation: I reviewed the patient's lab results. Labs: Laboratory Results - last 24 hr 04/21/25 04/21/25 20:50 21:15 WBC 6.0 RBC 3.24 L Hgb 8.2 L Hct 26.7 L MCV 82.4 MCH 25.3 L MCHC 30.7 L RDW Std Deviation 48.7 H RDW Coeff of Jocy 16.2 H Plt Count 145 L MPV 11.3 Immature Gran % (Auto) 0.700 Neut % (Auto) 82.3 H Lymph % (Auto) 10.9 L [place] % (Auto) 6.1 Eos % (Auto) 0.0 Baso % (Auto) 0.0 Absolute Neuts (auto) 5.0 Absolute Lymphs (auto) 0.66 L Nucleated RBC % 0 Sodium 135 Potassium 4.5 Chloride 96 L Carbon Dioxide 28.3 Anion Gap 10 BUN 13 Creatinine 0.57 L Estim Creat Clear Calc 151.05 Est GFR (MDRD) Non-Af 103 BUN/Creatinine Ratio 22.9 H Glucose 257 H Calcium 9.0 Magnesium 1.3 L Urine Color Yellow Urine Clarity Clear Urine pH 7.0 Ur Specific [place] 1.010 Urine Protein 30 H Urine Glucose (UA) 250 H Urine Ketones Negative Urine Occult Blood Negative Urine Nitrite Negative Urine Bilirubin Negative Urine Urobilinogen Normal Ur Leukocyte Esterase Negative Urine RBC 0 SEEN Urine WBC 0-5 SEEN Ur Squamous Epith Cells 0-5 SEEN Urine Bacteria 0 SEEN Urine Mucus 0 SEEN Radiography Chest X-Ray - ED: 1 View, Read by ED Physician and Read by Radiologist Diagnostic Testing: Clinical Impression(s) from Imaging Studies Chest X-Ray 04/21/25 21:20 IMPRESSION: Mild interstitial edema. Stable mild cardiomegaly. No focal consolidations. Reading Location: [facility] Discharge Plan Triage Chief Complaint: Fall Other Complaint: General Illness ED Provider: John Negron Dx/Rx/DC Orders Clinical Impression: Super obese, Falls, Unable to care for self Primary Care Provider: Cristal Wolf
[2025-04-21 20:59] VITALS: BP 182/85; O2SAT 100
[2025-04-21 21:01] LABS: Absolute Lymphocyte Count 0.66 X10^3/uL (0.83-4.51); Hematocrit 26.7 % (37-47); Hemoglobin 8.2 g/dL (12.0-15.0); Lymphocyte # 0.66 X10^3/ul (0.83-4.51); Lymphocyte % 10.9 % (19-41); Mean Corp Hgb Conc 30.7 g/dL (32-36); Mean Corpuscular Hgb 25.3 pg (27.0-32.0); Mean Corpuscular Volume 82.4 fL (81-99); Mean Platelet Vol. 11.3 fl (6.2-12.0); Monocyte# 0.37 X10^3/uL; Monocyte% 6.1 % (0-10); NRBC Flagged by Analyzer 0 % (0-5); Neutrophil # 4.96 X10^3/uL (2.7-7.7); Neutrophil % 82.3 % (47-70); Platelet Count 145 K/mm3 (150-450); RBC Distribution Width CV 16.2 % (11.6-14.6); RBC Distribution Width SD 48.7 fl (35.1-43.9); Red Blood Count 3.24 M/mm3 (4.2-5.4)
[2025-04-21 21:12] VITALS: BMI 53.3
[2025-04-21 21:19] LABS: Bacteria 0 SEEN /hpf (None Seen); Mucous, Urine 0 SEEN /hpf (<or=2+); Red Blood Cells-Urine 0 SEEN /hpf (0-5)
[2025-04-21 21:20] LABS: Anion Gap 10 (5-15); BUN 13 mg/dL (4-19); BUN/Creat Ratio 22.9 RATIO (10-20); Carbon Dioxide 28.3 mmol/L (21.0-32.0); Chloride 96 mmol/L (98-108); Creatinine, Serum 0.57 mg/dL (0.70-1.20); EST Glomerular Filtration Rate 103 (>60); Estimated Creatinine Clearance 151.05 ml/min (50-250); Glucose 257 mg/dL (70-99); Potassium 4.5 mmol/L (3.3-5.1); Sodium Level 135 mmol/L (133-145)
--- NOTE | 2025-04-21 21:20 | RAD_ITS ---
PROCEDURE: CHEST 1 VIEW (PORTABLE) 04/21/2025 REASON FOR EXAM: GENERALIZED WEAKNESS TECHNIQUE: Frontal view of the chest. COMPARISON: 03/01/2020 FINDINGS: Mild pulmonary vascular congestion. Mild interstitial edema. Stable mild cardiomegaly. No focal consolidations. No pleural effusion or pneumothorax. No acute fractures. RAD/Chest 1 View (Portable) IMPRESSION: Mild interstitial edema. Stable mild cardiomegaly. No focal consolidations. Reading Location: [id number]
[2025-04-21 21:26] LABS: Color, Urine Yellow (Yellow); Glucose, Dipstick 250 mg/dl (Normal); Ketone-Dipstick Negative (Negative); Leukocyte Esterase-Dipstick Negative /ul (Negative); Nitrite-Dipstick Negative (Negative); Occult Blood-Urine Negative /ul (Negative); Protein-Dipstick 30 mg/dl (Negative); Urine Bilirubin Dipstick Negative (Negative); Urine Clarity Clear (Clear); Urine Urobilinogen Normal (Normal)
--- NOTE | 2025-04-21 21:47 | CM.ED ---
Social Work SW met with patient and patients father. Patient stated she fell at her apartment this evening and was unable to get herself back up, called EMS to bring her to the ED. Patient stated she had recently discharged from [facility] because she thought she would be able to care for herself. She now believes she cannot safely stay on her own and wants to return to the [facility]. SW explained process and that there was no guarantee that [facility] would be able to accept patient back and that patient may need to be open to other placement options. Patient expressed understanding. Amalia Tidwell, MANAGER PATHOLOGY, FLOUR BLENDER HELPER
[2025-04-21 21:51] LABS: Squamous Epithelial Cells - UA 0-5 SEEN /hpf (5-10); White Blood Cells 0-5 SEEN /hpf (0-5)
--- NOTE | 2025-04-21 22:22 | HP.PCM.HOS_ITS ---
HPI - General General Date of Admission: 04/21/25 Date of Service: 04/21/25 Chief Complaint: Recurrent falls, debility, unable to care for self. HPI Narrative The patient is a 59 y/o F w/ PMHx: COPD/Asthma with chronic hypoxic respiratory failure 3 L NC per records, Chronic anemia, Anxiety and Depression/bipolar disorder/ADHD/schizoaffective disorder/PTSD, HTN, HLD, Morbid obesity, ABRAM, Seizure disorder, GERD, Gout, Frequent fall history who presents to the [facility] ED on 04/21/2025 with history of fall on day of presentation with generalized weakness, debility and inability to care for herself with recent history previously of RSV diagnosis requiring hospitalization and eventually transition to [facility] recently released (had been nearly in the SNF setting for ~ 3 months) and per report had felt appropriate for discharge to home however she following discharge has continued to decline prompting family to bring her in again. She notes her chronic issues are stable otherwise. Workup in the ED included T98.7, heart rate 79, BP 155/93, respiratory rate 16, 96% on 3 L nasal cannula which is patient chronic home baseline, CBC with WBC 6.0, hemoglobin 8.2, MCV 82.4, platelet 145 with lymphopenia, BMP with chloride 96, BUN/creatinine 13/0.57, GFR 103, glucose 257, urinalysis not marked appearing, chest x-ray with mild interstitial edema, stable mild cardiomegaly with no acute focal consolidations. In the ED social work was involved and patient understands with family discussions also that she is high risk and really needs to be in a long-term care facility setting and cannot safely ever discharge to home again. 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 coli infection Schizophrenia Diabetes PTSD (post-traumatic stress disorder) Depression Schizo affective schizophrenia Other specified peripheral vascular diseases Essential hypertension Chest pain Diabetes mellitus type 2, uncontrolled, with complications Back pain Asthma Knee pain Migraines Fatigue Hemorrhoids COPD (chronic obstructive pulmonary disease) Arthritis Pain syndrome, chronic Bipolar disorder Obstructive sleep apnea Stasis dermatitis of both legs Venous insufficiency of both lower extremities Super obese Open wound of left lower extremity GERD (gastroesophageal reflux disease) Benign hypertension ADHD (attention deficit hyperactivity disorder) Home Medications ?Medication ?Instructions ?Recorded ?Last Taken ?Type bupropion HCl 300 mg 24 hr tablet, 450 mg PO DAILY [facility] 03/05/17 10/03/24 History extended release albuterol sulfate 90 mcg/actuation 2 puff inhalation Q 4H PRN Sob &/Or 05/29/18 07/07/18 History aerosol inhaler Wheezing fluticasone propionate 50 2 spray NASAL DAILY allergie s 08/04/19 10/03/24 History mcg/actuation nasal spray,suspension aspirin 81 mg chewable tablet 81 mg PO DAILY@0800 hear t health 07/17/20 10/03/24 Rx buspirone 10 mg tablet 20 mg PO TID mood 01/25/22 1 12/03/23 History cetirizine 10 mg tablet (Zyrtec) 10 mg PO DAILY allerg ies 01/25/22 10/03/24 History colchicine 0.6 mg tablet 0.6 mg PO DAILY gout 2 10/03/24 History guaifenesin 600 mg tablet, 1,200 mg PO BID PRN Cough 0 01/25/22 Unknown History extended release 12 hr (Mucinex) lorazepam 0.5 mg tablet (Ativan) 0.5 - 1 mg PO BID PRN Panic 01/25/22 Unknown History Attack(S) primidone 250 mg tablet 750 mg PO QHS seizures 01/2510/03/24 History triamcinolone acetonide 0.1 % 1 applic topical TID PRN Rash 01/25/22 Unknown History topical cream fluticasone 500 mcg-salmeterol 50 1 inh inhalation BID breathing 05/02/22 10/03/24 History mcg/dose blistr powdr for inhalation omeprazole 40 mg capsule,delayed 40 mg PO DAILY gerd 0 05/02/22 10/03/24 History release oxybutynin chloride 10 mg 15 mg PO DAILY bladder 05/0210/03/24 History tablet,extended release 24 hr ergocalciferol (vitamin D2) 1,250 50,000 unit PO QMONT H bone health 08/10/22 10/03/24 History mcg (50,000 unit) capsule (Vitamin D2) lactulose 10 gram/15 mL oral 60 ml PO BID PRN Constipa tion 08/10/22 Unknown History solution pregabalin 150 mg capsule 150 mg PO TID pain 08/10/22 10/03/24 History ondansetron 4 mg disintegrating 4 mg PO Q8H PRN Nausea 10/03/24 Unknown History tablet trazodone 150 mg tablet 150 mg PO QHS sleep 10/03/24 10/02/24 History bisacodyl 5 mg tablet,delayed 5 mg PO QHS PRN constipa tion 5 10/30/24 Unknown Rx release (Gentle Laxative days #10 tabs (bisacodyl)) albuterol sulfate 2.5 mg/3 mL 2.5 mg inhalation Q6H MT N 02/25/25 Unknown History (0.083 %) solution for nebulization shortness of breat h or wheezing escitalopram oxalate 20 mg tablet 20 mg PO DAILY [employer] 03/01/25 Unknown History aluminum-mag hydroxide-simethicone 5 ml PO ONCE Unknown History 200 mg-200 mg-20 mg/5 mL oral susp (Antacid) furosemide 80 mg tablet 80 mg PO QAM 04/15/25 Unknow n History magnesium hydroxide 400 mg/5 mL 15 ml PO QDAY PRN 03/21 06/13 Unknown History oral suspension (Milk of Magnesia) midodrine 2.5 mg tablet 2.5 mg PO ONCE 04/15/25 Unkn own History paliperidone palmitate 117 mg/0.75 117 mg IM Q30D 03/21 06/13 Unknown History mL intramuscular syringe (Invega Sustenna) acetaminophen 500 mg tablet 1,000 mg PO TID 04/17/25 U nknown History cyclobenzaprine 10 mg tablet 10 mg PO HS PRN 04/17/25 Unknown History insulin glargine 100 unit/mL (3 82 unit subcut QHS deshaun betes 04/17/25 Unknown History mL) subcutaneous pen (Lantus Solostar U-100 Insulin) insulin lispro 100 unit/mL See Rx Instructions subcut QAC DM 04/17/25 Unknown History subcutaneous pen insulin lispro 100 unit/mL 1 sliding scale dose subcut 04/17/25 Unknown History subcutaneous pen (Humalog KwikPen USEASDIRECTD (U-100) Insulin) lidocaine 4 % topical patch 1 patch topical QDAY 04/17 Unknown History (Aspercreme (lidocaine)) lisinopril 10 mg tablet 5 mg PO BID blood pressure 0 04/17/25 Unknown History nadolol 80 mg tablet 40 mg PO BID high blood pres sure 04/17/25 Unknown History Allergy/AdvReac Type Severity Reaction Status Date / Time meloxicam Allergy Severe Anaphylaxis Verified 04/21/25 17:35 vancomycin Allergy Severe BURNING Verified 04/21/25 17:35 RED RASH ON LEGGS amlodipine (From Norvasc) Allergy Swelling Verified 04/21/25 17:35 cefazolin sodium (From Ancef) Allergy Hives Verified 04/21/25 17:35 fexofenadine (From Nia) Allergy Shortness Verified 04/21/25 17:35 of breath nitrofurantoin (From Allergy Hives Verified 04/21/25 17:35 Macrobid) peanut Allergy Shortness Verified 04/21/25 17:35 of breath Penicillins Allergy Hives Verified 04/21/25 17:35 sumatriptan (From Imitrex) Allergy Shortness Verified 04/21/25 17:35 of breath adhesive AdvReac BURNING Verified 04/21/25 17:35 amitriptyline (From Elavil) AdvReac Other Verified 04/21/25 17:35 clindamycin AdvReac Diarrhea Verified 04/21/25 17:35 ziprasidone (From Geodon) AdvReac NEEDS Verified 04/21/25 17:35 FOLLOW-UP Family History Father CVA (cerebral vascular accident) Heart disease Mother Heart disease Surgical History History of elbow surgery (~06/2020) History of arthroscopic knee surgery History of left heart catheterization (07/16/20) Kidney stone H/O hernia repair Hx of hysterectomy Hx of section Social History household members: family housing: house Smoking Status: Never smoker alcohol intake: never substance use type: does not use caffeine: Yes (occasionally)
--- NOTE | 2025-04-21 22:22 | PCM.HP.STD ---
HPI - General General Date of Admission: 04/21/25 Date of Service: 04/21/25 Chief Complaint: Recurrent falls, debility, unable to care for self. HPI Narrative The patient is a 59 y/o F w/ PMHx: COPD/Asthma with chronic hypoxic respiratory failure 3 L NC per records, Chronic anemia, Anxiety and Depression/bipolar disorder/ADHD/schizoaffective disorder/PTSD, HTN, HLD, Morbid obesity, ABRAM, Seizure disorder, GERD, Gout, Frequent fall history who presents to the [facility] ED on 04/21/2025 with history of fall on day of presentation with generalized weakness, debility and inability to care for herself with recent history previously of RSV diagnosis requiring hospitalization and eventually transition to alf facility recently released (had been nearly in the SNF setting for ~ 3 months) and per report had felt appropriate for discharge to home however she following discharge has continued to decline prompting family to bring her in again. She notes her chronic issues are stable otherwise. Workup in the ED included T98.7, heart rate 79, BP 155/93, respiratory rate 16, 96% on 3 L nasal cannula which is patient chronic home baseline, CBC with WBC 6.0, hemoglobin 8.2, MCV 82.4, platelet 145 with lymphopenia, BMP with chloride 96, BUN/creatinine 13/0.57, GFR 103, glucose 257, urinalysis not marked appearing, chest x-ray with mild interstitial edema, stable mild cardiomegaly with no acute focal consolidations. In the ED social work was involved and patient understands with family discussions also that she is high risk and really needs to be in a long-term care facility setting and cannot safely ever discharge to home again. 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 coli infection Schizophrenia Diabetes PTSD (post-traumatic stress disorder) Depression Schizo affective schizophrenia Other specified peripheral vascular diseases Essential hypertension Chest pain Diabetes mellitus type 2, uncontrolled, with complications Back pain Asthma Knee pain Migraines Fatigue Hemorrhoids COPD (chronic obstructive pulmonary disease) Arthritis Pain syndrome, chronic Bipolar disorder Obstructive sleep apnea Stasis dermatitis of both legs Venous insufficiency of both lower extremities Super obese Open wound of left lower extremity GERD (gastroesophageal reflux disease) Benign hypertension ADHD (attention deficit hyperactivity disorder) Home Medications ?Medication ?Instructions ?Recorded ?Last Taken ?Type bupropion HCl 300 mg 24 hr tablet, 450 mg PO DAILY mental health 03/05/17 10/03/24 History extended release albuterol sulfate 90 mcg/actuation 2 puff inhalation Q4H PRN Sob &/Or 05/29/18 07/07/18 History aerosol inhaler Wheezing fluticasone propionate 50 2 spray NASAL DAILY allergies 08/04/19 10/03/24 History mcg/actuation nasal spray,suspension aspirin 81 mg chewable tablet 81 mg PO DAILY@0800 heart health 07/17/20 10/03/24 Rx buspirone 10 mg tablet 20 mg PO TID mood 01/25/22 10/03/24 History cetirizine 10 mg tablet (Zyrtec) 10 mg PO DAILY allergies 01/25/22 10/03/24 History colchicine 0.6 mg tablet 0.6 mg PO DAILY gout 01/25/22 10/03/24 History guaifenesin 600 mg tablet, 1,200 mg PO BID PRN Cough 01/25/22 Unknown History extended release 12 hr (Mucinex) lorazepam 0.5 mg tablet (Ativan) 0.5 - 1 mg PO BID PRN Panic 01/25/22 Unknown History Attack(S) primidone 250 mg tablet 750 mg PO QHS seizures 01/25/22 10/03/24 History triamcinolone acetonide 0.1 % 1 applic topical TID PRN Rash 01/25/22 Unknown History topical cream fluticasone 500 mcg-salmeterol 50 1 inh inhalation BID breathing 05/02/22 10/03/24 History mcg/dose blistr powdr for inhalation omeprazole 40 mg capsule,delayed 40 mg PO DAILY gerd 05/02/22 10/03/24 History release oxybutynin chloride 10 mg 15 mg PO DAILY bladder 05/02/22 10/03/24 History tablet,extended release 24 hr ergocalciferol (vitamin D2) 1,250 50,000 unit PO QMONTH bone health 08/10/22 10/03/24 History mcg (50,000 unit) capsule (Vitamin D2) lactulose 10 gram/15 mL oral 60 ml PO BID PRN Constipation 08/10/22 Unknown History solution pregabalin 150 mg capsule 150 mg PO TID pain 08/10/22 10/03/24 History ondansetron 4 mg disintegrating 4 mg PO Q8H PRN Nausea 10/03/24 Unknown History tablet trazodone 150 mg tablet 150 mg PO QHS sleep 10/03/24 10/02/24 History bisacodyl 5 mg tablet,delayed 5 mg PO QHS PRN constipation 5 10/30/24 Unknown Rx release (Gentle Laxative days #10 tabs (bisacodyl)) albuterol sulfate 2.5 mg/3 mL 2.5 mg inhalation Q6H PRN 02/25/25 Unknown History (0.083 %) solution for nebulization shortness of breath or wheezing escitalopram oxalate 20 mg tablet 20 mg PO DAILY MENTAL HEALTH 03/01/25 Unknown History aluminum-mag hydroxide-simethicone 5 ml PO ONCE 04/15/25 Unknown History 200 mg-200 mg-20 mg/5 mL oral susp (Antacid) furosemide 80 mg tablet 80 mg PO QAM 04/15/25 Unknown History magnesium hydroxide 400 mg/5 mL 15 ml PO QDAY PRN 04/15/25 Unknown History oral suspension (Milk of Magnesia) midodrine 2.5 mg tablet 2.5 mg PO ONCE 04/15/25 Unknown History paliperidone palmitate 117 mg/0.75 117 mg IM Q30D 04/15/25 Unknown History mL intramuscular syringe (Invega Sustenna) acetaminophen 500 mg tablet 1,000 mg PO TID 04/17/25 Unknown History cyclobenzaprine 10 mg tablet 10 mg PO HS PRN 04/17/25 Unknown History insulin glargine 100 unit/mL (3 82 unit subcut QHS diabetes 04/17/25 Unknown History mL) subcutaneous pen (Lantus Solostar U-100 Insulin) insulin lispro 100 unit/mL See Rx Instructions subcut QAC DM 04/17/25 Unknown History subcutaneous pen insulin lispro 100 unit/mL 1 sliding scale dose subcut 04/17/25 Unknown History subcutaneous pen (Humalog KwikPen USEASDIRECTD (U-100) Insulin) lidocaine 4 % topical patch 1 patch topical QDAY 04/17/25 Unknown History (Aspercreme (lidocaine)) lisinopril 10 mg tablet 5 mg PO BID blood pressure 05/29/25 Unknown History nadolol 80 mg tablet 40 mg PO BID high blood pressure 04/17/25 Unknown History Allergy/AdvReac Type Severity Reaction Status Date / Time meloxicam Allergy Severe Anaphylaxis Verified 04/21/25 17:35 vancomycin Allergy Severe BURNING Verified 04/21/25 17:35 RED RASH ON LEGGS amlodipine (From Norvasc) Allergy Swelling Verified 04/21/25 17:35 cefazolin sodium (From Ancef) Allergy Hives Verified 04/21/25 17:35 fexofenadine (From Nia) Allergy Shortness Verified 04/21/25 17:35 of breath nitrofurantoin (From Allergy Hives Verified 04/21/25 17:35 Macrobid) peanut Allergy Shortness Verified 04/21/25 17:35 of breath Penicillins Allergy Hives Verified 04/21/25 17:35 sumatriptan (From Imitrex) Allergy Shortness Verified 04/21/25 17:35 of breath adhesive AdvReac BURNING Verified 04/21/25 17:35 amitriptyline (From Elavil) AdvReac Other Verified 04/21/25 17:35 clindamycin AdvReac Diarrhea Verified 04/21/25 17:35 ziprasidone (From Geodon) AdvReac NEEDS Verified 04/21/25 17:35 FOLLOW-UP Family History Father CVA (cerebral vascular accident) Heart disease Mother Heart disease Surgical History History of elbow surgery (~06/2020) History of arthroscopic knee surgery History of left heart catheterization (07/16/20) Kidney stone H/O hernia repair Hx of hysterectomy Hx of section Social History household members: family housing: house Smoking Status: Never smoker alcohol intake: never substance use type: does not use caffeine: Yes (occasionally) ROS ROS Narrative Admission Review of Systems CONSTITUTIONAL: No weight loss, fever, chills, + weakness or fatigue. HEENT: Eyes: No visual loss, blurred vision, double vision or yellow sclerae. Ears, Nose, Throat: No hearing loss, sneezing, congestion, runny nose or sore throat. SKIN: No rash or itching, lesions except + bilateral lower extremity chronic venous stasis skin changes, stasis wounds. CARDIOVASCULAR: + Chronic edema. No chest pain, chest pressure or chest discomfort, palpitations, orthopnea, syncopal events. RESPIRATORY: + Chronic dyspnea, intermittent cough, occasional wheezing. No hemoptysis. GASTROINTESTINAL: No anorexia, nausea, vomiting or diarrhea, abdominal pain, melena, BRBPR. GENITOURINARY: No dysuria, frequency, urgency or retention. NEUROLOGICAL: + Chronic headaches, frequent falls. No dizziness, syncope, paralysis, ataxia, numbness or tingling in the extremities, focal weakness, change in bowel or bladder control, seizure. MUSCULOSKELETAL: + muscle, back pain, joint pain or stiffness. HEMATOLOGIC: + Chronic anemia, no specific history of easy bleeding/bruising. LYMPHATICS: No enlarged nodes. No history of splenectomy. PSYCHIATRIC: + Hx anxiety and depression/bipolar disorder/ADHD/schizoaffective disorder/PTSD. ENDOCRINOLOGIC: No reports of sweating, cold or heat intolerance. No polyuria or polydipsia. ALLERGIES: + History of asthma, allergic rhinitis. Vital Signs Vital Signs Vital Signs: 04/21/25 17:36 04/21/25 20:56 04/21/25 20:59 Temperature 98.7 F Temperature Source Oral Pulse Rate 79 Respiratory Rate 16 Respiratory Effort Normal Non-Labored Respiratory Depth Normal Respiratory Pattern Normal Blood Pressure 155/93 H 182/85 H Blood Pressure Mean 113 117 Pulse Ox 96 100 Oxygen Delivery Method Nasal Cannula Nasal Cannula Oxygen Flow Rate (L/min) 3 3 Weight Weight: 320 lb 5.306 oz Body Mass Index (BMI) 53.3 Physical Exam Narrative Physical Examination: General: Awake, alert, oriented to self, place and recent events, a no acute distress evident. Skin: Normal color, normal turgor, no icterus, no cyanosis except occasional stage ecchymoses, abrasion, notable bilateral lower extremity venous stasis skin changes, small stasis wounds to bilateral shins. HEENT: AT/NC, EOMI, PERRLA, MMM, no obvious carotid bruit, difficult to determine JVD given very thickened neck. Lungs: Diminished, distant likely secondary to habitus, no evidence of any distress, no marked rhonchi, wheezing or rales noted. Heart: Regular rate with regular rhythm; no gallop, rub audible. Abdomen: Soft, morbidly obese, NTTP, distant BS, difficult to discern distention and HSM given habitus. Extremities: No cyanosis, no clubbing, pedal to mid perera chronic lymphedema evident/stasis disease as noted, see skin. Neurological: Awake, alert, oriented as noted, cognitive function currently at baseline, pupils equally reactive to light and accommodation, cranial nerves appear grossly normal, moving all 4 extremities, no focal deficits, strength severely globally decreased. Psychiatric: Affect appears flat, fatigued, no acute evidence of depressive or anxiety feelings but does have underlying history as noted. Results Lab / Micro Data 04/21/25 20:50 04/21/25 20:50 Labs: Laboratory Results - last 24 hr 04/21/25 20:50: WBC 6.0, RBC 3.24 L, Hgb 8.2 L, Hct 26.7 L, MCV 82.4, MCH 25.3 L, MCHC 30.7 L, RDW Std Deviation 48.7 H, RDW Coeff of Jocy 16.2 H, Plt Count 145 L, MPV 11.3, Immature Gran % (Auto) 0.700, Neut % (Auto) 82.3 H, Lymph % (Auto) 10.9 L, [place] % (Auto) 6.1, Eos % (Auto) 0.0, Baso % (Auto) 0.0, Absolute Neuts (auto) 5.0, Absolute Lymphs (auto) 0.66 L, Nucleated RBC % 0, Sodium 135, Potassium 4.5, Chloride 96 L, Carbon Dioxide 28.3, Anion Gap 10, BUN 13, Creatinine 0.57 L, Estim Creat Clear Calc 151.05, Est GFR (MDRD) Non-Af 103, BUN/Creatinine Ratio 22.9 H, Glucose 257 H, Calcium 9.0 04/21/25 21:15: Urine Color Yellow, Urine Clarity Clear, Urine pH 7.0, Ur Specific [place] 1.010, Urine Protein 30 H, Urine Glucose (UA) 250 H, Urine Ketones Negative, Urine Occult Blood Negative, Urine Nitrite Negative, Urine Bilirubin Negative, Urine Urobilinogen Normal, Ur Leukocyte Esterase Negative, Urine RBC 0 SEEN, Urine WBC 0-5 SEEN, Ur Squamous Epith Cells 0-5 SEEN, Urine Bacteria 0 SEEN, Urine Mucus 0 SEEN Imaging Radiology Impression Chest X-Ray 04/21/25 21:20 IMPRESSION: Mild interstitial edema. Stable mild cardiomegaly. No focal consolidations. Reading Location: [id number] Assessment & Plan Assessment/Plan (1) Adult failure to thrive: PLAN: Plan The patient is a 59 y/o F w/ PMHx: COPD/Asthma with chronic hypoxic respiratory failure 3 L NC per records, Chronic anemia, Anxiety and Depression/bipolar disorder/ADHD/schizoaffective disorder/PTSD, HTN, HLD, Morbid obesity, ABRAM, Seizure disorder, GERD, Gout, Frequent fall history who presents to the [facility] ED on 04/21/2025 with history of fall on day of presentation with generalized weakness, debility and inability to care for herself with recent history previously of RSV diagnosis requiring hospitalization and eventually transition to alf facility recently released (had been nearly in the SNF setting for ~ 3 months) and per report had felt appropriate for discharge to home however she following discharge has continued to decline prompting family to bring her in again. #1. Recurrent mechanical falls, debility, unable to safely care for self, adult failure to thrive: Will admit to medical surgical floor and per discussion with social work we will plan observation admission as she has had significant recent inpatient admissions per report, will maintain on fall precautions, PT/OT/case management consulted for discharge planning for placement. #2. Chronic COPD/asthma with chronic hypoxic respiratory failure 3 L NC: Will continue home chronic oxygen supplementation, will maintain on ATC duonebs, PRN albuterol, HOB, IS parameters. #3. Chronic thrombocytopenia, unclear etiology: Admission platelet 145, similar to baseline, unclear exact etiology, cautiously using chemoprophylaxis, continue to trend CBC. #4. Anxiety and depression/bipolar disorder/ADHD/schizoaffective disorder/PTSD: Will continue patient home Invega, BuSpar, escitalopram, hydroxyzine, Ativan, trazodone with hold parameters for sedation. #5. Diabetes mellitus type II with chronic neuropathy: Hold oral home regimen, continue home insulin regimen with accu checks w/ ISS, will continue home pregabalin regimen. #6. Hypertension: Will continue patient home nadolol, lisinopril, Lasix home regimen with hold parameters as needed. #7. Hyperlipidemia: Not on regimen per current list, defer to outpatient. #8. Morbid Obesity: Weight loss and lifestyle changes encouraged. #9. Allergic rhinitis: Will continue patient home fluticasone, cetirizine home regimen. #10. Chronic normocytic anemia: Admission hemoglobin 8.2, MCV 82.4, baseline hemoglobin noted most recently primarily 7-8, stable, continue to trend. #11. ABRAM: Will continue PAP therapy nightly. #12. Seizure disorder: Will continue patient primidone home regimen. #13. GERD: Will continue home PPI. #14. Gout: Will continue home colchicine regimen. #15. DVT prophylaxis: Lovenox. #16. CODE status: Patient HCPOA and living will are not in place but her father would be her medical decision-maker if necessary. Discussed CODE status at length including difference between FULL code, DNR-CCA and DNR-CC status. Following discussions about the differences in these status, requested continuation of Full Code status which she has been prior upon admission. Charges/Coding Visit Charges Inpatient E&M: 50080 Init Hosp L2
[2025-04-21 22:52] LABS: Magnesium 1.3 mg/dL (1.5-2.2)
[2025-04-21 22:56] VITALS: BP 154/73; PULSE 77; RESP 16; TEMP 37.1; O2SAT 100
[2025-04-21 22:57] VITALS: BP 154/73; PULSE 73
[2025-04-21] MEDS: Acetaminophen 500 MG Tablet 1000 MG PO (23:48)
[2025-04-22] VITALS (11 sets, daily range): BP systolic 148–191; BP diastolic 64–95; PULSE 64–89; RESP 16–24; TEMP 36.5–36.8; O2SAT 96–100; BMI 52.7; BMI 52.8
[2025-04-22] MEDS: Albuterol 2.5 MG/3 ML VIAL.NEB. INHALATION (02:38)
--- NOTE | 2025-04-22 02:59 | CPS ---
Patient having family member bring in own PAP machine to wear for night time use.
[2025-04-22] MEDS: LORazepam 0.5 MG Tablet PO ×2 (03:29→22:38)
[2025-04-22] MEDS: Acetaminophen 325 MG Tablet 650 MG PO ×3 (03:29→16:47)
[2025-04-22] MEDS: busPIRone 5 MG Tablet 20 MG PO ×3 (05:37→21:18)
[2025-04-22] MEDS: Pregabalin 75 MG Capsule 150 MG PO ×3 (05:37→21:18)
[2025-04-22] MEDS: Insulin Lispro 100 UNIT/ML INSULN.PEN SC ×4 (06:07→21:27)
[2025-04-22 06:29] LABS: Bedside Glucose 258 mg/dL (74-106)
[2025-04-22 06:49] LABS: Absolute Lymphocyte Count 0.67 X10^3/uL (0.83-4.51); Absolute Neutrophil Count 3.8 X10^3/uL (2.0-7.7); Hematocrit 26.2 % (37-47); Hemoglobin 8.3 g/dL (12.0-15.0); Lymphocyte # 0.67 X10^3/ul (0.83-4.51); Lymphocyte % 13.9 % (19-41); Mean Corp Hgb Conc 31.7 g/dL (32-36); Mean Corpuscular Hgb 25.6 pg (27.0-32.0); Mean Corpuscular Volume 80.9 fL (81-99); Mean Platelet Vol. 9.5 fl (6.2-12.0); Monocyte# 0.35 X10^3/uL; Monocyte% 7.2 % (0-10); NRBC Flagged by Analyzer 0 % (0-5); Neutrophil # 3.79 X10^3/uL (2.7-7.7); Neutrophil % 78.5 % (47-70); Platelet Count 134 K/mm3 (150-450); RBC Distribution Width CV 16.1 % (11.6-14.6); RBC Distribution Width SD 47.1 fl (35.1-43.9); Red Blood Count 3.24 M/mm3 (4.2-5.4); White Blood Count 4.8 K/mm3 (4.4-11.0)
[2025-04-22 07:23] LABS: ALB/GLOB Ratio 1.3 RATIO (0.9-2.4); AST(SGOT) 18 U/L (<=31); Alanine Aminotransfer ALT/SGPT 19 U/L (<=34); Albumin, Serum 3.8 g/dL (3.4-4.8); Alkaline Phosphatase 69 U/L (35-104); Anion Gap 11 (5-15); BUN 10 mg/dL (4-19); BUN/Creat Ratio 16.8 RATIO (10-20); Calcium,Total 9.1 mg/dL (7.6-11.0); Carbon Dioxide 28.8 mmol/L (21.0-32.0); Chloride 96 mmol/L (98-108); EST Glomerular Filtration Rate 102 (>60); Estimated Creatinine Clearance 142.63 ml/min (50-250); Globulin 2.8 g/dL (2.2-4.2); Glucose 280 mg/dL (70-99); Protein, Total 6.6 g/dL (5.9-8.4); Sodium Level 136 mmol/L (133-145); Total Bilirubin 0.38 mg/dL (0.00-1.30)
--- NOTE | 2025-04-22 07:32 | PN.HOSP_ITS ---
Reason for Visit Reason for Visit: Diagnoses Adult failure to thrive (04/21/25) Subjective Subjective Complaining of pain in her right hip. Patient stated that when she was getting up using her walker got entangled with her oxygen and she fell landing on her right hip. She was able to get herself up into the chair but was unable to walk further. Stated that EMS try to walk her with her walker and she was unable to do so. She is requesting going to [facility], [place] where she was just discharged this past Monday. Objective Data Objective Data Vital Signs: Vital Signs Temp Pulse Resp BP Pulse Ox O2 Del Method O2 Flow Rate 36.5 C L 72 18 160/64 H 98 Nasal Cannula 3 04/22/25 03:35 04/22/25 03:35 04/22/25 03:35 04/22/25 03:35 04/22/25 03:35 04/22/25 03:35 04/22/25 03:35 Oxygen Flow Rate (L/min) 3 Oxygen Delivery Method Nasal Cannula Weight: 143.9 kg Body Mass Index (BMI) 52.8 Intake & Output: Intake and Output for Last 24 Hours 04/20/25 04/21/25 04/22/25 23:59 23:59 23:59 Intake Total 250 / 250 Output Total 1000 / 1000 Balance -750 / -750 Lab / Micro Data 04/22/25 06:27 04/22/25 06:27 Labs: Laboratory Results - last 24 hr 04/21/25 20:50: WBC 6.0, RBC 3.24 L, Hgb 8.2 L, Hct 26.7 L, MCV 82.4, MCH 25.3 L , MCHC 30.7 L, RDW Std Deviation 48.7 H, RDW Coeff of Jocy 16.2 H, Plt Count 145 L, MPV 11.3, Immature Gran % (Auto) 0.700, Neut % (Auto) 82.3 H, Lymph % (Auto) 10.9 L, [place] % (Auto) 6.1, Eos % (Auto) 0.0, Baso % (Auto) 0.0, Absolute Neuts (auto) 5.0, Absolute Lymphs (auto) 0.66 L, Nucleated RBC % 0, Sodium 135, Potassium 4.5, Chloride 96 L, Carbon Dioxide 28.3, Anion Gap 10, BUN 13, C reatinine 0.57 L, Estim Creat Clear Calc 151.05, Est GFR (MDRD) Non-Af 103, B UN/Creatinine Ratio 22.9 H, Glucose 257 H, Calcium 9.0, Magnesium 1.3 L 04/21/25 21:15: Urine Color Yellow, Urine Clarity Clear, Urine pH 7.0, Ur Specific [place] 1.010, Urine Protein 30 H, Urine Glucose (UA) 250 H, Urine Ketones Negative, Urine Occult Blood Negative, Urine Nitrite Negative, Urine Bilirubin Negative, Urine Urobilinogen Normal, Ur Leukocyte Esterase Negative, Urine RBC 0 SEEN, Urine WBC 0-5 SEEN, Ur Squamous Epith Cells 0-5 SEEN, Urine Bacteria 0 SEEN, Urine Mucus 0 SEEN 04/22/25 06:04: POC Glucose 258 H 04/22/25 06:27: WBC 4.8, RBC 3.24 L, Hgb 8.3 L, Hct 26.2 L, MCV 80.9 L, MCH 25.6 L, MCHC 31.7 L, RDW Std Deviation 47.1 H, RDW Coeff of Jocy 16.1 H, Plt Count 134 L, MPV 9.5, Immature Gran % (Auto) 0.400, Neut % (Auto) 78.5 H, Lymph % (Auto) 13.9 L, [place] % (Auto) 7.2, Eos % (Auto) 0.0, Baso % (Auto) 0.0, Absolute Neuts (auto) 3.8, Absolute Lymphs (auto) 0.67 L, Nucleated RBC % 0, Sodium 136, Potassium 4.0, Chloride 96 L, Carbon Dioxide 28.8, Anion Gap 11, BUN 10, C reatinine 0.60 L, Estim Creat Clear Calc 142.63, Est GFR (MDRD) Non-Af 102, BUN/Creatinine Ratio 16.8, Glucose 280 H, Calcium 9.1, Total Bilirubin 0.38, AST 18, ALT 19, Alkaline Phosphatase 69, Total Protein 6.6, Albumin 3.8, Globulin 2.8, Albumin/Globulin Ratio 1.3 Radiography Diagnostic Testing: Radiology Impression Chest X-Ray 04/21/25 21:20 IMPRESSION: Mild interstitial edema. Stable mild cardiomegaly. No focal consolidations. Reading Location: [facility] Physical Exam Const alert and no apparent distress HEENT head/scalp atraumatic and moist oral mucous membranes Resp normal respiratory effort and no retractions GI GI Narrative: obese Extremity Extremity Narrative: LE edema. Able to move her right lower extremity spontaneously. Full range of passive movement. Assessment & Plan Assessment/Plan (1) Adult failure to thrive: PLAN: Recently released from from [facility], [place]. And patient now requesting going back to [facility] [place] Fell at home after getting entangled with her walker and oxygen tubing. Patient concerned about not caring for self and requesting something coming at night. She states that she would not be able to afford someone at night and that is why she is requesting going back to [facility], [place]. PT OT evaluate and treat. Case management to assist Check right hip xray t/o rule out fracture. (2) (HFpEF) heart failure with preserved ejection fraction: PLAN: Acute versus subacute Patient's weight has gone up roughly 13 kg since February Echo from 07/01/2021: Showed EF of 6 5% with right particular systolic pressure of 41 mmHg. Not the cause of her admission but with her gradual weight gain, lower extremity edema it is certainly more cumbersome for her to get around so I feel that properly diuresing her would be of benefit. Patient would benefit further from outpatient studies in regards to polysomnogram to evaluate for sleep apnea. Fluid restrict. Daily weights. PLAN: Plan Chronic conditions: * COPD: stable. On 3l oxygen chronically. * anxiety/depression: continue meds * DM2: SSI * HTN, uncontrolled: nadolol, lisinopril, furosemide. As needed hydralazine * h/o severe constipation: caution with narcotics. * obesity class III: complicates care and recovery. VTE prophylaxis: LMWH Charges/Coding Visit Charges Inpatient E&M: 12909 Subs Hosp L2
--- NOTE | 2025-04-22 09:53 | CASEMGMT ---
Addendum entered by Nat Gtz 04/22/25 10:22: [facility] has accepted. Pt will need LOC. SW updated. Nat Gtz DC Planning Asst. Original Note: Discharge Planning Referral sent to [facility]. Nat Gtz DC Planning Asst.
[2025-04-22] MEDS: buPROPion (XL) 150 MG TABLET.XL 450 MG PO (09:58)
[2025-04-22] MEDS: Escitalopram Oxalate 20 MG Tablet PO (09:59)
[2025-04-22] MEDS: Lisinopril 5 MG Tablet PO ×2 (09:59→21:19)
[2025-04-22] MEDS: Aspirin 81 MG TAB.CHEW PO (09:59)
[2025-04-22] MEDS: Tolterodine Tartrate 4 MG CAP.SA PO (10:00)
[2025-04-22] MEDS: Glucerna Shake 120 ML LIQUID PO ×2 (10:00→12:09)
[2025-04-22] MEDS: Pantoprazole Sodium 40 MG Tablet PO (10:00)
[2025-04-22] MEDS: Menthol/Lanolin/Calamine/Znox 113 GM Tube 1 APPLIC TOPICAL ×4 (10:01→21:22)
[2025-04-22] MEDS: Furosemide 80 MG Tablet PO (10:02)
[2025-04-22] MEDS: Colchicine 0.6 MG TABLET PO (10:02)
[2025-04-22] MEDS: Loratadine 10 MG Tablet PO (10:02)
[2025-04-22] MEDS: Nadolol 40 MG Tablet PO ×2 (10:02→21:20)
[2025-04-22] MEDS: Enoxaparin 40 MG/0.4 ML Syringe SC (10:02)
[2025-04-22] MEDS: Lidocaine 5% Patch 1 PATCH TOPICAL (10:03)
[2025-04-22] MEDS: 0.9% Saline Lock 10 ML Syringe IV ×4 (10:04→21:24)
[2025-04-22] MEDS: hydrALAZINE 20 MG/ML Vial 10 MG IV ×2 (10:04→16:57)
[2025-04-22] MEDS: Fluticasone 0.05% 1 SPRAY NASAL.SRY 2 SPRAY NASAL (10:11)
--- NOTE | 2025-04-22 10:50 | RAD_ITS ---
PROCEDURE: HIP, UNI W/ PELVIS 2-3 VIEWS 04/22/2025 REASON FOR EXAM: RIGHT HIP PAIN TECHNIQUE: Four view right hip to include the AP pelvis COMPARISON: Bilateral hip and pelvis series of 03/02/2025. RAD/HIP, UNI W/ Pelvis 2-3 Views IMPRESSION: Significant degenerative changes are seen of the visualized lower lumbar spine. Minimal degenerative changes are seen at the sacroiliac joints. Limited imaging of the left hip demonstrates mild degenerative changes. Mild right hip joint degenerative changes are seen, without significant associa jaylin joint space narrowing. No evidence of femoral head osteonecrosis. No acute fracture or dislocation is seen. If clinical concern persists, short-term follow-up imaging may be obtained to r ule out a currently occult fracture. Reading Location: [id number]
[2025-04-22 12:23] LABS: Bedside Glucose 320 mg/dL (74-106)
--- NOTE | 2025-04-22 12:49 | ECHOCS_ITS ---
Reason For Study Reason For Study: CONGESTIVE HEART FAILURE Procedure This was a 2D Doppler, Color Flow transthoracic echocardiogram. The study was technically difficult. Contrast injection was performed. The patient was scanned supine. Exam performed portable in patient room. Left Ventricle Normal LV size. Mild concentric left ventricular hypertrophy. The LV systolic function is normal. EF is 65 %. Stage 1 diastolic dysfunction. Right Ventricle Normal right ventricle. Atria The left atrium is mildly enlarged. Normal right atrium. Mitral Valve Trivial mitral valve insufficiency. Tricuspid Valve Mild tricuspid valve insufficiency. Right ventricular systolic pressure estimated to be 57 mmHg. Aortic Valve Trisinus/trileaflet aortic valve. Pulmonic Valve The pulmonic valve is not well visualized. Great Vessels Normal sized aortic root. Pericardium/Pleural No pericardial effusion. Medication Diluted definity 2.5ml given slow IV push to enhance endocardial definition. MMode/2D Measurements & Calculations LVIDd: 5.2 cm IVSd: 1.2 cm LVOT diam: 2.1 cm LVIDs: 3.2 cm LVPWd: 1.2 cm RVDd: 3.7 cm FS: 39.4 % LVOT area: 3.6 cm2 LA dimension: 4.2 cm asc Aorta Diam: 3.5 cm LAV(MOD- bp): 67.3 ml LAV(MOD- bp) Indexed: 28.0 ml/m2 LAV(MOD- sp2): 52.0 ml LAV(MOD- sp4): 76.5 ml SV(MOD- sp4): 96.7 ml LVAd ap4: 41.2 cm2 LVAd ap2: 33.9 cm2 LVLd ap4: 8.9 cm LVLd ap2: 8.3 cm SI(MOD- sp4): 40.2 ml/m2 EDV(MOD-sp4): 165.7 ml EDV(MOD-sp2): 111.8 ml EDV(sp4-el): 161.7 ml EDV(sp2-el): 118.0 ml LVAs ap4: 24.8 cm2 LVAs ap2: 20.7 cm2 LVLs ap4: 7.4 cm LVLs ap2: 7.6 cm ESV(MOD-sp4): 69.0 ml ESV(MOD-sp2): 47.7 ml ESV(sp4-el): 70.3 ml ESV(sp2-el): 48.2 ml EF(MOD-sp4): 58.4 % EF(MOD-sp2): 57.3 % EF(sp4-el): 56.6 % SV(MOD-sp2): 64.1 ml SV(sp4-el): 91.5 ml Ao sinus diam: 2.9 cm SI(MOD-sp2): 26.6 ml/m2 Ao ST Junction: 2.4 cm LA dimension(2D): 4.0 cm LA A4 area: 24.5 cm2 RA A4 area: 10.2 cm2 TAPSE: 2.2 cm Time Measurements MV dec time: 0.17 sec Doppler Measurements & Calculations MV E max anthony: 73.7 cm/sec Lat Peak E' Anthony: 9.7 cm/sec Med Peak E' Anthony: 8.6 cm/sec MV A max anthony: 89.7 cm/sec E/E' lat: 7.6 E/E' med: 8.6 MV E/A: 0.82 Ao V2 max: 163.8 cm/sec LV V1 max: 112.4 cm/sec MV dec slope: 424.5 cm/sec2 Ao max P.7 mmHg LV V1 max P.1 mmHg Ao V2 mean: 103.4 cm/sec LV V1 mean P.5 mmHg Ao mean P.0 mmHg LV V1 mean: 74.3 cm/sec Ao V2 VTI: 38.1 cm LV V1 VTI: 26.7 cm AV (velocity ratio): 0.70 ABBY(I,D): 2.5 cm2 ABBY(V,D): 2.4 cm2 SV(LVOT): 94.9 ml PA V2 max: 109.7 cm/sec TR max anthony: 326.7 cm/sec TR max P.7 mmHg ECHO/Echo Complete W/ Contrast Interpretation Summary Mild concentric left ventricular hypertrophy. The LV systolic function is normal. EF is 65 %. Stage 1 diastolic dysfunction. The left atrium is mildly enlarged. Mild tricuspid valve insufficiency. Right ventricular systolic pressure estimated to be 57 mmHg. The study was technically difficult. Ordering Physician: Marek Echevarria Referring Physician: Cristal Wolf M.D. Performed By: Claire Stacy RDCS
--- NOTE | 2025-04-22 12:49 | PCM.TXEXTCAR ---
Diet Diet Order/Speech Therapy: INPATIENT Hospital Diet / Speech Therapy Order(s) 04/22/25 00:08 Diet: Consistent Carb - Calorie Controlled Food consistency:: Regular Liquid Consistency:: Regular/Thin Fluid restriction:: 1500 mL How many daily calories?: 1800 calorie Routine Orders/Code Status Routine Lab Work: BMP Code Status: Full Code DC O2, CPAP, BIPAP needs Home O2 Discharge instructions: Yes Type of respiratory needs?: Oxygen (3) Oxygen frequency: Continuous Continuous oxygen liters per minute: 3 Wound(s) right lower leg: Wound Type: Stasis Ulcer left lower leg: Wound Type: Stasis Ulcer Therapies Weight Bearing: Full weight bearing Physical Therapy: Eval and Treat Problem/Diagnosis (1) Adult failure to thrive: Status: Acute Code(s): R62.7 - Adult failure to thrive Plan: Recently released from from [facility]. And patient now requesting going back to [facility] Fell at home after getting entangled with her walker and oxygen tubing. Patient concerned about not caring for self and requesting something coming at night. She states that she would not be able to afford someone at night and that is why she is requesting going back to [facility]. PT OT evaluate and treat. Case management to assist Check right hip xray t/o rule out fracture. (2) (HFpEF) heart failure with preserved ejection fraction: Status: Acute Code(s): I50.30 - Unspecified diastolic (congestive) heart failure Plan: Acute versus subacute Patient's weight has gone up roughly 13 kg since February Echo from 07/01/2021: Showed EF of 6 5% with right particular systolic pressure of 41 mmHg. Not the cause of her admission but with her gradual weight gain, lower extremity edema it is certainly more cumbersome for her to get around so I feel that properly diuresing her would be of benefit. Patient would benefit further from outpatient studies in regards to polysomnogram to evaluate for sleep apnea. Fluid restrict. Daily weights. Plan Chronic conditions: COPD: stable. On 3l oxygen chronically. anxiety/depression: continue meds DM2: SSI HTN, uncontrolled: nadolol, lisinopril, furosemide. As needed hydralazine h/o severe constipation: caution with narcotics. obesity class III: complicates care and recovery. VTE prophylaxis: LMWH Allergies/Procedures Done in Hospital Allergies meloxicam Allergy (Severe, Verified 04/21/25 17:35) Anaphylaxis vancomycin Allergy (Severe, Verified 04/21/25 17:35) BURNING RED RASH ON LEGGS amlodipine (From Norvasc) Allergy (Verified 04/21/25 17:35) Swelling cefazolin sodium (From Ancef) Allergy (Verified 04/21/25 17:35) Hives fexofenadine (From Nia) Allergy (Verified 04/21/25 17:35) Shortness of breath nitrofurantoin (From Macrobid) Allergy (Verified 04/21/25 17:35) Hives peanut Allergy (Verified 04/21/25 17:35) Shortness of breath difficulty swallowing, throat swelling, resolved w/ benadryl per pt. Penicillins Allergy (Verified 04/21/25 17:35) Hives per pt this was a past reaction, and she has taken recently w/o problem sumatriptan (From Imitrex) Allergy (Verified 04/21/25 17:35) Shortness of breath adhesive Adverse Reaction (Verified 04/21/25 17:35) BURNING DUODERM amitriptyline (From Elavil) Adverse Reaction (Verified 04/21/25 17:35) Other hallucinations clindamycin Adverse Reaction (Verified 04/21/25 17:35) Diarrhea ziprasidone (From Geodon) Adverse Reaction (Verified 04/21/25 17:35) NEEDS FOLLOW-UP severe headache Type of Care/Length of Stay Estimated LOS: Convalescent Care Less Than 30 days Type of Care Needed: Skilled Rehab Potential: Fair Prognosis: Fair Additional Orders/Day of Discharge Day of Discharge: 04/23/25 Discharge Plan Admission Admit Date/Time: 04/21/25 22:23 Primary Reason for Your Visit: failure to thrive. Attending Provider: Marek Echevarria Primary Care Provider: Cristal Wolf Consulting Providers: Jessica Rebolledo Discharge Orders/Prescriptions Prescriptions: New Glucerna 1.2 Beau 0.06-1.2 gram-kcal/mL Liquid 120 ml PO TIDCM Qty: 0 0RF Continued omeprazole 40 mg capsule,delayed release(DR/EC) 40 mg PO DAILY oxybutynin chloride 10 mg tablet extended release 24hr 15 mg PO DAILY pregabalin 150 mg capsule 150 mg PO TID ergocalciferol (vitamin D2) [Vitamin D2] 1,250 mcg (50,000 unit) capsule 50,000 unit PO QMONTH insulin lispro 100 unit/mL insulin pen See Rx Instructions subcut QAC Rx Instructions: 20 units with breakfast , 20 units with lunch acetaminophen 500 mg tablet 1,000 mg PO TID insulin lispro [Humalog KwikPen Insulin] 100 unit/mL insulin pen 1 sliding scale dose subcut USEASDIRECTD Rx Instructions: 180-200=2u 201-250=4u 251-300=6u 301-350=8u 351-400=10u 401-450=12u >451 notify lidocaine [Aspercreme (lidocaine)] 4 % adhesive patch,medicated 1 patch topical QDAY Rx Instructions: right hip alum-mag hydroxide-simeth [Antacid] 200-200-20 mg/5 mL suspension 5 ml PO ONCE Rx Instructions: administer between meals and at bedtime Invega Sustenna 117 mg/0.75 mL syringe 117 mg IM Q30D furosemide 80 mg tablet 80 mg PO QAM magnesium hydroxide [Milk of Magnesia] 400 mg/5 mL suspension 15 ml PO QDAY PRN (Reason: constipation) cyclobenzaprine 10 mg tablet 10 mg PO HS PRN (Reason: sleep) bupropion HCl 300 MG tablet extended release 24 hr 450 mg PO DAILY Patient Comments: DEPRESSION albuterol sulfate 1 INHALER inhaler 2 puff INHALATION Q4H PRN (Reason: Sob &/Or Wheezing) fluticasone propionate 1 SPRAY spray,suspension 2 spray NASAL DAILY aspirin 81 MG tablet,chewable 81 mg PO DAILY@0800 0RF insulin glargine [Lantus Solostar U-100 Insulin] 100 unit/mL (3 mL) insulin pen 82 unit SUBCUT QHS cetirizine [Zyrtec] 10 mg Tablet 10 mg PO DAILY triamcinolone acetonide 0.1 % Cream 1 applic TOPICAL TID PRN (Reason: Rash) primidone 250 mg Tablet 750 mg PO QHS lorazepam [Ativan] 0.5 mg Tablet 0.5 - 1 mg PO BID PRN (Reason: Panic Attack(S)) buspirone 10 mg Tablet 20 mg PO TID colchicine 0.6 mg Tablet 0.6 mg PO DAILY guaifenesin [Mucinex] 600 mg Tablet Extended Release 12hr 1,200 mg PO BID PRN (Reason: Cough) fluticasone propion-salmeterol 500-50 mcg/dose blister with device 1 inh INHALATION BID lactulose 10 gram/15 mL solution 60 ml PO BID PRN (Reason: Constipation) ondansetron 4 MG tablet 4 mg PO Q8H PRN (Reason: Nausea) trazodone 150 mg tablet 150 mg PO QHS lisinopril 10 mg tablet 5 mg PO BID bisacodyl [Gentle Laxative (bisacodyl)] 5 mg tablet,delayed release (DR/EC) 5 mg PO QHS PRN (Reason: constipation) 5 Days Qty: 10 0RF escitalopram oxalate 20 mg tablet 20 mg PO DAILY albuterol sulfate 2.5 mg /3 mL (0.083 %) solution for nebulization 2.5 mg inhalation Q6H PRN (Reason: shortness of breath or wheezing) allopurinol 100 mg tablet 100 mg PO DAILY nadolol 80 mg tablet 40 mg PO BID Discontinued midodrine 2.5 mg tablet 2.5 mg PO ONCE bupropion HCl 150 mg tablet extended release 24 hr 450 mg PO DAILY Referrals / Follow Up: Cristal Wolf MD [Primary Care Provider] - Within 2 Weeks Disposition Disposition (needs filled in before D/C Order can be placed): [facility]
[2025-04-22] MEDS: Insulin Lispro 100 UNIT/ML INSULN.PEN 20 UNIT SC (13:09)
[2025-04-22] MEDS: Acetaminophen 500 MG Tablet 1000 MG PO (13:16)
[2025-04-22] MEDS: Furosemide 40 MG/4 ML Vial IV ×2 (13:16→21:18)
--- NOTE | 2025-04-22 13:23 | CASEMGMT ---
LUIS MIGUEL PARRA Assessment Face to Face with patient for initial transition planning/care coordination assessment. LUIS MIGUEL PARRA introduced self and role at [facility], pt voices understanding. Pt is A&Ox4 and is resting comfortably in bed and is calm. Care providers, pharmacy, and demographics verified. Admitting dx: Falls, Adult FTT LACE Strata: 3 PCP: Cristal Wolf Specialists: [facility] but is unsure who this is. Pt also has a counselor through [facility] Preferred Pharmacy: [facility] Insurance: [employer] Prescription Benefit: Yes LNOK: Elliott Valenzuela (Father), Amy Moore (Friend) Living Arrangements: Pt lives alone in a single story apartment with a flat entrance ADLs/IADLs: Pt requires assistance and is active with home care administrator through [facility]. This is scheduled for M-F (8a-4p). Pt father is also close and is able to support the pt. Transportation: Father. Denies concerns DME: home oxygen through [employer]. Verified 3L @ rest and 5L with exertion via NC. Pt states that she has a concentrator, portable tanks, and a pulse ox. Pt also has a BGM and CBGM with sufficient supplies. Pt states that she also has the following: FWW, Rollator, Grab bars, shower chair, and medical alert system. HHC/SNF: Pt states that she is active with [facility]. History with [facility]. Recent Hx at [facility]. Community Resources: Pt is active with [facility] and has MoW and a medical alert system. Pt's CM is Richa Tam ([phone]). SIOMARA BOLANOS CM and SHIVA notified. Pt?s goal: [facility] to help pt return to PLOF Plan: Anticipate SNF at the time of DC. Pt states that she prefers to go back to [facility] and denies wanting to review a list. Per the DPA, pt has already been accepted at [facility]. Pt denies further needs at this time. Report given to SIOMARA BOLANOS CM and SHIVA. Harvey Zaldivar RN, CM
--- NOTE | 2025-04-22 13:58 | CASEMGMT ---
Discharge Planning [facility] notified that pt plans to admit to snf for terminal operator placement. Nat Gtz DC Planning Asst.
--- NOTE | 2025-04-22 16:46 | CASEMGMT ---
Addendum entered by Isamar Pabon 04/23/25 09:15: Correction: Full PASRR submitted with LOC. MADAN Key Original Note: Social Work- SW met with pt who reports that she would like to be placed at [facility] at discharge. DCA notified of referral request. [facility] accepted. SW completed 7000 and submitted level of care. SW remains available to follow. Plan: [facility]; skilled level of care MADAN Key
[2025-04-22 17:10] LABS: Bedside Glucose 239 mg/dL (74-106)
[2025-04-22] MEDS: Ipratropium/Albuterol Sulfate 3 ML AMPUL.NEB INHALATION (19:41)
[2025-04-22] MEDS: traZODone 50 MG Tablet 150 MG PO (21:19)
[2025-04-22] MEDS: Primidone 250 MG Tablet 750 MG PO (21:19)
[2025-04-22] MEDS: guaiFENesin 10 ML UDC (200MG/10ML) 20 ML PO (21:26)
[2025-04-22] MEDS: Insulin Glargine-YFGN 100 UNIT/ML Pen 82 UNIT SC (21:27)
[2025-04-22 22:33] LABS: Bedside Glucose 272 mg/dL (74-106)
[2025-04-23 02:15] VITALS: BP 153/97; PULSE 80; RESP 18; TEMP 36.6; O2SAT 97
[2025-04-23] MEDS: busPIRone 5 MG Tablet 20 MG PO ×2 (05:05→13:39)
[2025-04-23] MEDS: Furosemide 40 MG/4 ML Vial IV ×2 (05:06→13:39)
[2025-04-23] MEDS: 0.9% Saline Lock 10 ML Syringe IV (05:06)
[2025-04-23] MEDS: Acetaminophen 500 MG Tablet 1000 MG PO ×2 (05:06→13:39)
[2025-04-23 05:10] VITALS: BP 154/75; PULSE 77; RESP 16; TEMP 36.6; O2SAT 95
[2025-04-23] MEDS: Pregabalin 75 MG Capsule 150 MG PO ×2 (05:11→13:38)
[2025-04-23 06:00] VITALS: BMI 52.8; BMI 52.9
[2025-04-23 07:05] VITALS: PULSE 80; RESP 20; O2SAT 96
[2025-04-23] MEDS: Ipratropium/Albuterol Sulfate 3 ML AMPUL.NEB INHALATION (07:05)
[2025-04-23 07:33] LABS: Anion Gap 13 (5-15); BUN 10 mg/dL (4-19); BUN/Creat Ratio 13.3 RATIO (10-20); Calcium,Total 9.1 mg/dL (7.6-11.0); Carbon Dioxide 32.4 mmol/L (21.0-32.0); Chloride 93 mmol/L (98-108); Creatinine, Serum 0.77 mg/dL (0.70-1.20); EST Glomerular Filtration Rate 88 (>60); Estimated Creatinine Clearance 111.33 ml/min (50-250); Glucose 240 mg/dL (70-99); Potassium 3.6 mmol/L (3.3-5.1); Sodium Level 138 mmol/L (133-145)
--- NOTE | 2025-04-23 07:47 | PCM.PN.HOSP ---
Reason for Visit Reason for Visit: Diagnoses Unspecified diastolic (congestive) heart failure (04/21/25) Adult failure to thrive (04/21/25) Subjective Subjective States she has been compliant with BiPAP at home. Complains of headache. Reports being depressed as she did not qualify for guardianship of her son and freely admits to accepting $100 from her son as a loan. Objective Data Objective Data Vital Signs: Vital Signs Temp Pulse Resp BP Pulse Ox O2 Del Method O2 Flow Rate 36.6 C 77 16 154/75 H 95 Nasal Cannula 2 04/23/25 05:10 04/23/25 05:10 04/23/25 05:10 04/23/25 05:10 04/23/25 05:10 04/23/25 05:10 04/23/25 05:10 Oxygen Flow Rate (L/min) 2 Oxygen Delivery Method Nasal Cannula Weight: 144.299 kg Body Mass Index (BMI) 52.9 Intake & Output: Intake and Output for Last 24 Hours 04/21/25 04/22/25 04/23/25 23:59 23:59 23:59 Intake Total 1200 / 1200 Output Total 4300 / 5300 1900 / 1900 Balance -3100 / -4100 -1900 / -1900 Lab / Micro Data 04/22/25 06:27 04/23/25 06:24 Labs: Laboratory Results - last 24 hr 04/22/25 12:02: POC Glucose 320 H 04/22/25 16:45: POC Glucose 239 H 04/22/25 21:10: POC Glucose 272 H 04/23/25 06:24: Sodium 138, Potassium 3.6, Chloride 93 L, Carbon Dioxide 32.4 H, Anion Gap 13, BUN 10, Creatinine 0.77, Estim Creat Clear Calc 111.33, Est GFR (MDRD) Non-Af 88, BUN/Creatinine Ratio 13.3, Glucose 240 H, Calcium 9.1 Micro: Microbiology 04/22/25 13:55 Stool Enteric Bacteriology - Final 04/22/25 13:55 Stool Clostridioides difficile (PCR) - Final Radiography Diagnostic Testing: Radiology Impression Hip/Pelvis X-Ray 04/22/25 10:50 IMPRESSION: Significant degenerative changes are seen of the visualized lower lumbar spine. Minimal degenerative changes are seen at the sacroiliac joints. Limited imaging of the left hip demonstrates mild degenerative changes. Mild right hip joint degenerative changes are seen, without significant associated joint space narrowing. No evidence of femoral head osteonecrosis. No acute fracture or dislocation is seen. If clinical concern persists, short-term follow-up imaging may be obtained to rule out a currently occult fracture. Reading Location: [id number] Echocardiogram 04/22/25 12:49 Interpretation Summary Mild concentric left ventricular hypertrophy. The LV systolic function is normal. EF is 65 %. Stage 1 diastolic dysfunction. The left atrium is mildly enlarged. Mild tricuspid valve insufficiency. Right ventricular systolic pressure estimated to be 57 mmHg. The study was technically difficult. Ordering Physician: Marek Echevarria Referring Physician: Cristal Wolf M.D. Performed By: Claire Stacy RDCS Physical Exam Const alert and no apparent distress HEENT head/scalp atraumatic and moist oral mucous membranes Resp normal respiratory effort, no retractions, no use of accessory muscles and clear to auscultation bilaterally Cardio regular rate, regular rhythm, S1 normal heart sound and S2 normal heart sound GI normal to inspection, nondistended, normoactive bowel sounds and soft to palpation Neuro Sensorium / Orientation: awake and alert Assessment & Plan Assessment/Plan (1) Adult failure to thrive: PLAN: Recently released from from [facility]. And patient now requesting going back to [facility] Fell at home after getting entangled with her walker and oxygen tubing. Patient concerned about not caring for self and requesting something coming at night. She states that she would not be able to afford someone at night and that is why she is requesting going back to [facility]. PT OT evaluate and treat. Case management to assist No hip fracture noted on Xray. to [facility] today. (2) (HFpEF) heart failure with preserved ejection fraction: PLAN: Acute versus subacute Patient's weight has gone up roughly 13 kg since February Echo EF of 65% with right particular systolic pressure of 57 mmHg. Not the cause of her admission but with her gradual weight gain, lower extremity edema it is certainly more cumbersome for her to get around so I feel that properly diuresing her would be of benefit. Patient would benefit further from outpatient studies in regards to polysomnogram to evaluate for sleep apnea. Fluid restrict. Daily weights. Continue furosemide 60 BID at home with dietary restrictions. PLAN: Plan Chronic conditions: COPD: stable. On 3l oxygen chronically. anxiety/depression: continue meds DM2: SSI HTN, uncontrolled: nadolol, lisinopril, furosemide. As needed hydralazine h/o severe constipation: caution with narcotics. obesity class III: complicates care and recovery. VTE prophylaxis: LMWH
[2025-04-23] MEDS: Enoxaparin 40 MG/0.4 ML Syringe SC (07:55)
[2025-04-23] MEDS: Insulin Lispro 100 UNIT/ML INSULN.PEN SC ×2 (07:55→11:39)
[2025-04-23] MEDS: Insulin Lispro 100 UNIT/ML INSULN.PEN 20 UNIT SC ×2 (07:55→11:39)
[2025-04-23] MEDS: Aspirin 81 MG TAB.CHEW PO (07:56)
[2025-04-23] MEDS: Nadolol 40 MG Tablet PO (07:56)
[2025-04-23] MEDS: Loratadine 10 MG Tablet PO (07:56)
[2025-04-23] MEDS: Colchicine 0.6 MG TABLET PO (07:56)
[2025-04-23] MEDS: Lidocaine 5% Patch 1 PATCH TOPICAL (07:56)
[2025-04-23] MEDS: buPROPion (XL) 150 MG TABLET.XL 450 MG PO (07:56)
[2025-04-23] MEDS: Menthol/Lanolin/Calamine/Znox 113 GM Tube 1 APPLIC TOPICAL ×2 (07:57→13:39)
[2025-04-23] MEDS: Fluticasone 0.05% 1 SPRAY NASAL.SRY 2 SPRAY NASAL (07:57)
[2025-04-23] MEDS: Escitalopram Oxalate 20 MG Tablet PO (07:58)
[2025-04-23] MEDS: Tolterodine Tartrate 4 MG CAP.SA PO (07:58)
[2025-04-23] MEDS: Lisinopril 5 MG Tablet PO (07:58)
[2025-04-23] MEDS: Allopurinol 100 MG Tablet PO (07:58)
[2025-04-23] MEDS: Pantoprazole Sodium 40 MG Tablet PO (07:58)
[2025-04-23 07:59] VITALS: BP 130/65; PULSE 68; RESP 19; TEMP 36.6; O2SAT 97
[2025-04-23 08:25] LABS: Bedside Glucose 240 mg/dL (74-106)
--- NOTE | 2025-04-23 11:09 | CASEMGMT ---
Discharge Planning LOC obtained and sent to [facility]. Nat Gtz DC Planning Asst.
[2025-04-23 12:06] LABS: Bedside Glucose 188 mg/dL (74-106)
--- NOTE | 2025-04-23 13:10 | PCM.TXEXTCAR ---
Diet Diet Order/Speech Therapy: INPATIENT Hospital Diet / Speech Therapy Order(s) 04/22/25 00:08 Diet: Consistent Carb - Calorie Controlled Food consistency:: Regular Liquid Consistency:: Regular/Thin Dietary Modifications:: Cardiac / Heart Healthy Fluid restriction:: 1500 mL How many daily calories?: 1800 calorie Routine Orders/Code Status Routine Lab Work: BMP Code Status: Full Code DC O2, CPAP, BIPAP needs Home O2 Discharge instructions: Yes Type of respiratory needs?: Oxygen (3) Oxygen frequency: Continuous Continuous oxygen liters per minute: 3 Wound(s) right lower leg: Wound Type: Stasis Ulcer left lower leg: Wound Type: Stasis Ulcer Therapies Physical Therapy: Eval and Treat Problem/Diagnosis (1) Adult failure to thrive: Status: Acute Code(s): R62.7 - Adult failure to thrive Plan: Recently released from from [facility]. And patient now requesting going back to [facility] Fell at home after getting entangled with her walker and oxygen tubing. Patient concerned about not caring for self and requesting something coming at night. She states that she would not be able to afford someone at night and that is why she is requesting going back to [facility]. PT OT evaluate and treat. Case management to assist No hip fracture noted on Xray. to [facility] today. (2) (HFpEF) heart failure with preserved ejection fraction: Status: Acute Code(s): I50.30 - Unspecified diastolic (congestive) heart failure Plan: Acute versus subacute Patient's weight has gone up roughly 13 kg since February Echo EF of 65% with right particular systolic pressure of 57 mmHg. Not the cause of her admission but with her gradual weight gain, lower extremity edema it is certainly more cumbersome for her to get around so I feel that properly diuresing her would be of benefit. Patient would benefit further from outpatient studies in regards to polysomnogram to evaluate for sleep apnea. Fluid restrict. Daily weights. Continue furosemide 60 BID at home with dietary restrictions. Plan Chronic conditions: COPD: stable. On 3l oxygen chronically. anxiety/depression: continue meds DM2: SSI HTN, uncontrolled: nadolol, lisinopril, furosemide. As needed hydralazine h/o severe constipation: caution with narcotics. obesity class III: complicates care and recovery. VTE prophylaxis: LMWH Allergies/Procedures Done in Hospital Allergies meloxicam Allergy (Severe, Verified 04/21/25 17:35) Anaphylaxis vancomycin Allergy (Severe, Verified 04/21/25 17:35) BURNING RED RASH ON LEGGS amlodipine (From Norvasc) Allergy (Verified 04/21/25 17:35) Swelling cefazolin sodium (From Ancef) Allergy (Verified 04/21/25 17:35) Hives fexofenadine (From Nia) Allergy (Verified 04/21/25 17:35) Shortness of breath nitrofurantoin (From Macrobid) Allergy (Verified 04/21/25 17:35) Hives peanut Allergy (Verified 04/21/25 17:35) Shortness of breath difficulty swallowing, throat swelling, resolved w/ benadryl per pt. Penicillins Allergy (Verified 04/21/25 17:35) Hives per pt this was a past reaction, and she has taken recently w/o problem sumatriptan (From Imitrex) Allergy (Verified 04/21/25 17:35) Shortness of breath adhesive Adverse Reaction (Verified 04/21/25 17:35) BURNING DUODERM amitriptyline (From Elavil) Adverse Reaction (Verified 04/21/25 17:35) Other hallucinations clindamycin Adverse Reaction (Verified 04/21/25 17:35) Diarrhea ziprasidone (From Geodon) Adverse Reaction (Verified 04/21/25 17:35) NEEDS FOLLOW-UP severe headache Type of Care/Length of Stay Estimated LOS: Convalescent Care Less Than 30 days Type of Care Needed: Skilled Rehab Potential: Fair Prognosis: Fair Additional Orders/Day of Discharge Day of Discharge: 04/23/25 Dietary and Speech Recommendations Dietitian Recommendations/Changes: Will adjust diet to 1800 calorie; consistent carbohydrate; cardiac with 1500mL/day FR. Will d/c glucerna shake w/ medpass. ONS as needed if PO fails at meals. Discharge Plan Admission Admit Date/Time: 04/21/25 22:23 Primary Reason for Your Visit: failure to thrive. Attending Provider: Marek Echevarria Primary Care Provider: Cristal Wolf Consulting Providers: Jessica Rebolledo Discharge Orders/Prescriptions Prescriptions: New Glucerna 1.2 Beau 0.06-1.2 gram-kcal/mL Liquid 120 ml PO TIDCM Qty: 0 0RF insulin lispro [Humalog KwikPen Insulin] 100 unit/mL Insulin Pen See Protocol subcut ACHS Qty: 0 0RF Protocol: 3. Sliding Scale Insulin Med Dosing Condition: 150-189 mg/dl = 1 unit Condition: 190-229 mg/dl = 2 units Condition: 230-269 mg/dl = 3 units Condition: 270-309 mg/dl = 4 units Condition: 310-349 mg/dl = 5 units Condition: 350-399 mg/dl = 6 units Condition: 400-449 mg/dl = 7 units Condition: Greater than 449 call physician Protocol Text: - Use for Total Daily Dose of Insulin 37-55 units - Obsese, infected, or steroid patients MEDIUM DOSING ALGORITHIM potassium chloride [K-Tab] 20 mEq tablet extended release 20 meq PO DAILY Qty: 30 0RF Continued omeprazole 40 mg capsule,delayed release(DR/EC) 40 mg PO DAILY oxybutynin chloride 10 mg tablet extended release 24hr 15 mg PO DAILY pregabalin 150 mg capsule 150 mg PO TID ergocalciferol (vitamin D2) [Vitamin D2] 1,250 mcg (50,000 unit) capsule 50,000 unit PO QMONTH insulin lispro 100 unit/mL insulin pen See Rx Instructions subcut QAC Rx Instructions: 20 units with breakfast , 20 units with lunch acetaminophen 500 mg tablet 1,000 mg PO TID insulin lispro [Humalog KwikPen Insulin] 100 unit/mL insulin pen 1 sliding scale dose subcut USEASDIRECTD Rx Instructions: 180-200=2u 201-250=4u 251-300=6u 301-350=8u 351-400=10u 401-450=12u >451 notify lidocaine [Aspercreme (lidocaine)] 4 % adhesive patch,medicated 1 patch topical QDAY Rx Instructions: right hip alum-mag hydroxide-simeth [Antacid] 200-200-20 mg/5 mL suspension 5 ml PO ONCE Rx Instructions: administer between meals and at bedtime Invega Sustenna 117 mg/0.75 mL syringe 117 mg IM Q30D magnesium hydroxide [Milk of Magnesia] 400 mg/5 mL suspension 15 ml PO QDAY PRN (Reason: constipation) cyclobenzaprine 10 mg tablet 10 mg PO HS PRN (Reason: sleep) bupropion HCl 300 MG tablet extended release 24 hr 450 mg PO DAILY Patient Comments: DEPRESSION albuterol sulfate 1 INHALER inhaler 2 puff INHALATION Q4H PRN (Reason: Sob &/Or Wheezing) fluticasone propionate 1 SPRAY spray,suspension 2 spray NASAL DAILY aspirin 81 MG tablet,chewable 81 mg PO DAILY@0800 0RF insulin glargine [Lantus Solostar U-100 Insulin] 100 unit/mL (3 mL) insulin pen 82 unit SUBCUT QHS cetirizine [Zyrtec] 10 mg Tablet 10 mg PO DAILY triamcinolone acetonide 0.1 % Cream 1 applic TOPICAL TID PRN (Reason: Rash) primidone 250 mg Tablet 750 mg PO QHS lorazepam [Ativan] 0.5 mg Tablet 0.5 - 1 mg PO BID PRN (Reason: Panic Attack(S)) buspirone 10 mg Tablet 20 mg PO TID colchicine 0.6 mg Tablet 0.6 mg PO DAILY guaifenesin [Mucinex] 600 mg Tablet Extended Release 12hr 1,200 mg PO BID PRN (Reason: Cough) fluticasone propion-salmeterol 500-50 mcg/dose blister with device 1 inh INHALATION BID lactulose 10 gram/15 mL solution 60 ml PO BID PRN (Reason: Constipation) ondansetron 4 MG tablet 4 mg PO Q8H PRN (Reason: Nausea) trazodone 150 mg tablet 150 mg PO QHS lisinopril 10 mg tablet 5 mg PO BID bisacodyl [Gentle Laxative (bisacodyl)] 5 mg tablet,delayed release (DR/EC) 5 mg PO QHS PRN (Reason: constipation) 5 Days Qty: 10 0RF escitalopram oxalate 20 mg tablet 20 mg PO DAILY albuterol sulfate 2.5 mg /3 mL (0.083 %) solution for nebulization 2.5 mg inhalation Q6H PRN (Reason: shortness of breath or wheezing) allopurinol 100 mg tablet 100 mg PO DAILY nadolol 80 mg tablet 40 mg PO BID Changed furosemide 80 mg tablet 60 mg PO BID Qty: 60 0RF Discontinued midodrine 2.5 mg tablet 2.5 mg PO ONCE bupropion HCl 150 mg tablet extended release 24 hr 450 mg PO DAILY Referrals / Follow Up: Cristal Wolf MD [Primary Care Provider] - Within 2 Weeks Disposition Disposition (needs filled in before D/C Order can be placed): [facility]
--- NOTE | 2025-04-23 13:19 | DS.PCM_ITS ---
Providers Date of Admission: 04/21/25 Primary Care Physician: Dr. Cristal Wolf MD Reason For Visit: FALLS, ADULT FTT Diagnosis Discharge Diagnosis (1) Adult failure to thrive: Status: Acute Code(s): R62.7 - Adult failure to thrive Plan: Recently released from from [facility]. And patient now requesting going back to [facility] Fell at home after getting entangled with her walker and oxygen tubing. Patient concerned about not caring for self and requesting something coming at night. She states that she would not be able to afford someone at night and that is why she is requesting going back to [facility]. PT OT evaluate and treat. Case management to assist No hip fracture noted on Xray. to [facility] today. (2) (HFpEF) heart failure with preserved ejection fraction: Status: Acute Code(s): I50.30 - Unspecified diastolic (congestive) heart failure Plan: Acute versus subacute Patient's weight has gone up roughly 13 kg since February Echo EF of 65% with right particular systolic pressure of 57 mmHg. Not the cause of her admission but with her gradual weight gain, lower extremity edema it is certainly more cumbersome for her to get around so I feel that properly diuresing her would be of benefit. Patient would benefit further from outpatient studies in regards to polysomnogram to evaluate for sleep apnea. Fluid restrict. Daily weights. Continue furosemide 60 BID at home with dietary restrictions. Plan Chronic conditions: * COPD: stable. On 3l oxygen chronically. * anxiety/depression: continue meds * DM2: SSI * HTN, uncontrolled: nadolol, lisinopril, furosemide. As needed hydralazine * h/o severe constipation: caution with narcotics. * obesity class III: complicates care and recovery. VTE prophylaxis: LMWH Medications at Discharge Home Medications bupropion HCl 300 mg 24 hr tablet, extended release 450 mg PO DAILY mental health 03/05/17 albuterol sulfate 90 mcg/actuation aerosol inhaler 2 puff inhalation Q4H PRN Sob &/Or Wheezing 05/29/18 fluticasone propionate 50 mcg/actuation nasal spray,suspension 2 spray NASAL DAILY allergies 08/04/19 aspirin 81 mg chewable tablet 81 mg PO DAILY@0800 heart health 07/17/20 buspirone 10 mg tablet 20 mg PO TID mood 01/25/22 cetirizine 10 mg tablet (Zyrtec) 10 mg PO DAILY allergies 01/25/22 colchicine 0.6 mg tablet 0.6 mg PO DAILY gout 01/25/22 guaifenesin 600 mg tablet, extended release 12 hr (Mucinex) 1,200 mg PO BID PRN Cough 01/25/22 lorazepam 0.5 mg tablet (Ativan) 0.5 - 1 mg PO BID PRN Panic Attack(S) 01/25/22 primidone 250 mg tablet 750 mg PO QHS seizures 01/25/22 triamcinolone acetonide 0.1 % topical cream 1 applic topical TID PRN Rash 01/25/22 fluticasone 500 mcg-salmeterol 50 mcg/dose blistr powdr for inhalation 1 inh inhalation BID breathing 05/02/22 omeprazole 40 mg capsule,delayed release 40 mg PO DAILY gerd 05/02/22 oxybutynin chloride 10 mg tablet,extended release 24 hr 15 mg PO DAILY bladder 05/02/22 ergocalciferol (vitamin D2) 1,250 mcg (50,000 unit) capsule (Vitamin D2) 50,000 unit PO QMONTH bone health 08/10/22 lactulose 10 gram/15 mL oral solution 60 ml PO BID PRN Constipation 08/10/22 pregabalin 150 mg capsule 150 mg PO TID pain 08/10/22 ondansetron 4 mg disintegrating tablet 4 mg PO Q8H PRN Nausea 10/03/24 trazodone 150 mg tablet 150 mg PO QHS sleep 10/03/24 bisacodyl 5 mg tablet,delayed release (Gentle Laxative (bisacodyl)) 5 mg PO QHS PRN constipation 5 days #10 tabs 10/30/24 albuterol sulfate 2.5 mg/3 mL (0.083 %) solution for nebulization 2.5 mg inhalation Q6H PRN shortness of breath or wheezing 02/25/25 escitalopram oxalate 20 mg tablet 20 mg PO DAILY MENTAL HEALTH 03/01/25 aluminum-mag hydroxide-simethicone 200 mg-200 mg-20 mg/5 mL oral susp (Antacid) 5 ml PO ONCE 04/15/25 magnesium hydroxide 400 mg/5 mL oral suspension (Milk of Magnesia) 15 ml PO QDAY PRN constipation 04/15/25 paliperidone palmitate 117 mg/0.75 mL intramuscular syringe (Invega Sustenna) 117 mg IM Q30D 04/15/25 acetaminophen 500 mg tablet 1,000 mg PO TID 04/17/25 cyclobenzaprine 10 mg tablet 10 mg PO HS PRN sleep 04/17/25 insulin glargine 100 unit/mL (3 mL) subcutaneous pen (Lantus Solostar U-100 Insulin) 82 unit subcut QHS diabetes 04/17/25 insulin lispro 100 unit/mL subcutaneous pen See Rx Instructions subcut QAC DM 04/17/25 insulin lispro 100 unit/mL subcutaneous pen (Humalog KwikPen (U-100) Insulin) 1 sliding scale dose subcut USEASDIRECTD 04/17/25 lidocaine 4 % topical patch (Aspercreme (lidocaine)) 1 patch topical QDAY 04/17/25 lisinopril 10 mg tablet 5 mg PO BID blood pressure 04/17/25 nadolol 80 mg tablet 40 mg PO BID high blood pressure 04/17/25 allopurinol 100 mg tablet 100 mg PO DAILY 04/21/25 nutrition tx glu intol,lac-free,soy-fiber 0.06 gram-1.2 kcal/mL liquid (Glucerna 1.2 Beau) 120 ml PO TIDCM #0 mL 04/22/25 furosemide 80 mg tablet 60 mg (0.75 x 80 mg) PO BID #60 tabs 04/23/25 insulin lispro 100 unit/mL subcutaneous pen (Humalog KwikPen (U-100) Insulin) See Protocol subcut ACHS #0 mL 04/23/25 potassium chloride 20 mEq tablet,extended release (K-Tab) 20 meq PO DAILY #30 tabs 04/23/25 Hospital Course Operations None Procedures 2-D Echocardiogram Summary of Care Provided Minutes Spent on Discharge: 35 Weight / BMI Weight Weight: 144.299 kg Body Mass Index (BMI) 52.9 ABG / Lab / Microbiology Data 04/22/25 06:27 04/23/25 06:24 Laboratory: Laboratory Results - last 24 hr 04/22/25 16:45: POC Glucose 239 H 04/22/25 21:10: POC Glucose 272 H 04/23/25 06:24: Sodium 138, Potassium 3.6, Chloride 93 L, Carbon Dioxide 32.4 H, Anion Gap 13, BUN 10, Creatinine 0.77, Estim Creat Clear Calc 111.33, Est GFR (MDRD) Non-Af 88, BUN/Creatinine Ratio 13.3, Glucose 240 H, Calcium 9.1 04/23/25 07:49: POC Glucose 240 H 04/23/25 11:37: POC Glucose 188 H Microbiology: Microbiology 04/22/25 13:55 Stool Enteric Bacteriology - Final 04/22/25 13:55 Stool Clostridioides difficile (PCR) - Final Radiography Diagnostic Testing: Radiology Impression Echocardiogram 04/22/25 12:49 Interpretation Summary Mild concentric left ventricular hypertrophy. The LV systolic function is normal. EF is 65 %. Stage 1 diastolic dysfunction. The left atrium is mildly enlarged. Mild tricuspid valve insufficiency. Right ventricular systolic pressure estimated to be 57 mmHg. The study was technically difficult. Ordering Physician: Marek Echevarria Referring Physician: Cristal Wolf M.D. Performed By: Claire Stacy RDCS D/C Instructions Discharge Diet: - (1.5 liters/day) DC O2, CPAP, BIPAP Needs Home O2 Discharge instructions: Yes Type of respiratory needs?: Oxygen (3) Oxygen frequency: Continuous Continuous oxygen liters per minute: 3 DC home with Oxygen: No Meaningful Use Info Meaningful Use Meaningful Use Diagnoses (Choose all that apply): CHF CHF MARYCARMEN/ARB ordered at discharge?: Yes Documented LVEF (%): 65 Ischemic Stroke Statin Dosing Therapy Reference: STATIN DOSE THERAPY REFERENCE: * Patients > 75 years receive moderate or high dose statin therapy. * Patients 75 years or YOUNGER should receive HIGH intensity statin dose unless contraindicated. You will be required to document reason for non-treatment if statin daily dose does not meet guidelines. HIGH DOSE STATIN THERAPY DAILY Atorvastatin > than or = to 40 mg Rosuvastatin > than or = to 20 mg Amlodipine + Atorvastatin > than or = to 2.5/40 mg Ezetimibe + Simvastatin 10/80 mg Simvastatin 80mg Discharge Plan Admission Admit Date/Time: 04/21/25 22:23 Primary Reason for Your Visit: failure to thrive. Attending Provider: Marek Echevarria Primary Care Provider: Cristal Wolf Consulting Providers: Jessica Rebolledo Discharge Orders/Prescriptions Prescriptions: New Glucerna 1.2 Beau 0.06-1.2 gram-kcal/mL Liquid 120 ml PO TIDCM Qty: 0 0RF insulin lispro [Humalog KwikPen Insulin] 100 unit/mL Insulin Pen See Protocol subcut ACHS Qty: 0 0RF Protocol: 3. Sliding Scale Insulin Med Dosing Condition: 150-189 mg/dl = 1 unit Condition: 190-229 mg/dl = 2 units Condition: 230-269 mg/dl = 3 units Condition: 270-309 mg/dl = 4 units Condition: 310-349 mg/dl = 5 units Condition: 350-399 mg/dl = 6 units Condition: 400-449 mg/dl = 7 units Condition: Greater than 449 call physician Protocol Text: - Use for Total Daily Dose of Insulin 37-55 units - Obsese, infected, or steroid patients MEDIUM DOSING ALGORITHIM potassium chloride [K-Tab] 20 mEq tablet extended release 20 meq PO DAILY Qty: 30 0RF Continued omeprazole 40 mg capsule,delayed release(DR/EC) 40 mg PO DAILY oxybutynin chloride 10 mg tablet extended release 24hr 15 mg PO DAILY pregabalin 150 mg capsule 150 mg PO TID ergocalciferol (vitamin D2) [Vitamin D2] 1,250 mcg (50,000 unit) capsule 50,000 unit PO QMONTH insulin lispro 100 unit/mL insulin pen See Rx Instructions subcut QAC Rx Instructions: 20 units with breakfast , 20 units with lunch acetaminophen 500 mg tablet 1,000 mg PO TID insulin lispro [Humalog KwikPen Insulin] 100 unit/mL insulin pen 1 sliding scale dose subcut USEASDIRECTD Rx Instructions: 180-200=2u 201-250=4u 251-300=6u 301-350=8u 351-400=10u 401-450=12u >451 notify lidocaine [Aspercreme (lidocaine)] 4 % adhesive patch,medicated 1 patch topical QDAY Rx Instructions: right hip alum-mag hydroxide-simeth [Antacid] 200-200-20 mg/5 mL suspension 5 ml PO ONCE Rx Instructions: administer between meals and at bedtime Invega Sustenna 117 mg/0.75 mL syringe 117 mg IM Q30D magnesium hydroxide [Milk of Magnesia] 400 mg/5 mL suspension 15 ml PO QDAY PRN (Reason: constipation) cyclobenzaprine 10 mg tablet 10 mg PO HS PRN (Reason: sleep) bupropion HCl 300 MG tablet extended release 24 hr 450 mg PO DAILY Patient Comments: DEPRESSION albuterol sulfate 1 INHALER inhaler 2 puff INHALATION Q4H PRN (Reason: Sob &/Or Wheezing) fluticasone propionate 1 SPRAY spray,suspension 2 spray NASAL DAILY aspirin 81 MG tablet,chewable 81 mg PO DAILY@0800 0RF insulin glargine [Lantus Solostar U-100 Insulin] 100 unit/mL (3 mL) insulin pen 82 unit SUBCUT QHS cetirizine [Zyrtec] 10 mg Tablet 10 mg PO DAILY triamcinolone acetonide 0.1 % Cream 1 applic TOPICAL TID PRN (Reason: Rash) primidone 250 mg Tablet 750 mg PO QHS lorazepam [Ativan] 0.5 mg Tablet 0.5 - 1 mg PO BID PRN (Reason: Panic Attack(S)) buspirone 10 mg Tablet 20 mg PO TID colchicine 0.6 mg Tablet 0.6 mg PO DAILY guaifenesin [Mucinex] 600 mg Tablet Extended Release 12hr 1,200 mg PO BID PRN (Reason: Cough) fluticasone propion-salmeterol 500-50 mcg/dose blister with device 1 inh INHALATION BID lactulose 10 gram/15 mL solution 60 ml PO BID PRN (Reason: Constipation) ondansetron 4 MG tablet 4 mg PO Q8H PRN (Reason: Nausea) trazodone 150 mg tablet 150 mg PO QHS lisinopril 10 mg tablet 5 mg PO BID bisacodyl [Gentle Laxative (bisacodyl)] 5 mg tablet,delayed release (DR/EC) 5 mg PO QHS PRN (Reason: constipation) 5 Days Qty: 10 0RF escitalopram oxalate 20 mg tablet 20 mg PO DAILY albuterol sulfate 2.5 mg /3 mL (0.083 %) solution for nebulization 2.5 mg inhalation Q6H PRN (Reason: shortness of breath or wheezing) allopurinol 100 mg tablet 100 mg PO DAILY nadolol 80 mg tablet 40 mg PO BID Changed furosemide 80 mg tablet 60 mg PO BID Qty: 60 0RF Discontinued midodrine 2.5 mg tablet 2.5 mg PO ONCE bupropion HCl 150 mg tablet extended release 24 hr 450 mg PO DAILY Referrals / Follow Up: Cristal Wolf MD [Primary Care Provider] - Within 2 Weeks Disposition Disposition (needs filled in before D/C Order can be placed): [facility] Charges/Coding Visit Charges Inpatient E&M: 48849 Disch Hosp >30min
--- NOTE | 2025-04-23 13:47 | CASEMGMT ---
Discharge Planning Discharge orders, signed med list, and transport time sent to [facility]. Physicians will transport pt by wheelchair at 3p. Nursing, SW, pt, and her friend (Elliott) updated. Nat Gtz DC Planning Asst.
[2025-04-23 14:00] VITALS: BP 127/67; PULSE 75; RESP 18; TEMP 36.7; O2SAT 98
--- NOTE | 2025-04-23 14:04 | CASEMGMT ---
Social Work LOC has been obtained.? Physician updated and pt is ready for discharge today.? PASRR form completed in [facility]. SW met with pt and they are agreeable to discharge plan as stated above.? DCA and bedside nurse notified of discharge. DCA to complete final arrangements and notifications. Plan: [facility]; skilled level of care [facility]
--- NOTE | 2025-04-23 14:07 | NURSING ---
reported called to tanisha orantes, report given to juventino
== END 2025-04-23 15:39 | disposition skilled nursing facility (03) ==
LOC: ED 20:14 → MS3 23:13
PROVIDERS: Admitting Provider Family Medicine; Emergency Provider Emergency Medicine; PCP Internal Medicine
DX: R62.7 Adult failure to thrive (principal); F25.9 Schizoaffective disorder, unspecified; J96.11 Chronic respiratory failure with hypoxia; I11.0 Hypertensive heart disease with heart failure; I50.31 Acute diastolic (congestive) heart failure; F31.9 Bipolar disorder, unspecified; J44.89 Other specified chronic obstructive pulmonary disease; G40.909 Epilepsy, unspecified, not intractable, without status epilepticus; E66.813 Obesity, class 3; Z68.43 Body mass index [BMI] 50.0-59.9, adult; E11.42 Type 2 diabetes mellitus with diabetic polyneuropathy; Z79.4 Long term (current) use of insulin; E78.5 Hyperlipidemia, unspecified; K21.9 Gastro-esophageal reflux disease without esophagitis; Z79.82 Long term (current) use of aspirin; F43.10 Post-traumatic stress disorder, unspecified; G89.4 Chronic pain syndrome; I87.2 Venous insufficiency (chronic) (peripheral); M25.551 Pain in right hip; R51.9 Headache, unspecified; Z99.81 Dependence on supplemental oxygen; Z79.899 Other long term (current) drug therapy; Z79.51 Long term (current) use of inhaled steroids; M10.9 Gout, unspecified; R53.81 Other malaise; R29.6 Repeated falls; G47.33 Obstructive sleep apnea (adult) (pediatric); D69.6 Thrombocytopenia, unspecified
CPT/HCPCS: 36415; 71045; 73502; 80048; 80053; 81001; 82274; 82962; 83735; 85025; 87493; 87506; 93005; 93306; 94640; 94668; 96372; 96374; 96375; 96376; 97162; 97166; 97802; 99221; 99285; P9612; Q9957; A4216; C8929; G0378; J1938

== ENCOUNTER → 2025-04-24 05:00 | Outpatient (REF) | payer MEDICAID, SELFPAY ==
[2025-04-24 09:22] LABS: Hematocrit 30.4 % (37-47); Hemoglobin 9.4 g/dL (12.0-15.0); Mean Corp Hgb Conc 30.9 g/dL (32-36); Mean Corpuscular Hgb 25.4 pg (27.0-32.0); Mean Corpuscular Volume 82.2 fL (81-99); Mean Platelet Vol. 9.8 fl (6.2-12.0); Platelet Count 165 K/mm3 (150-450); RBC Distribution Width CV 16.5 % (11.6-14.6); White Blood Count 6.4 K/mm3 (4.4-11.0)
[2025-04-24 09:47] LABS: ALB/GLOB Ratio 1.2 RATIO (0.9-2.4); AST(SGOT) 14 U/L (<=31); Alanine Aminotransfer ALT/SGPT 14 U/L (<=34); Albumin, Serum 3.5 g/dL (3.4-4.8); Alkaline Phosphatase 65 U/L (35-104); Anion Gap 13 (5-15); BUN 14 mg/dL (4-19); BUN/Creat Ratio 19.7 RATIO (10-20); Calcium,Total 8.9 mg/dL (7.6-11.0); Carbon Dioxide 30.8 mmol/L (21.0-32.0); Chloride 95 mmol/L (98-108); Creatinine, Serum 0.69 mg/dL (0.70-1.20); EST Glomerular Filtration Rate 99 (>60); Globulin 2.9 g/dL (2.2-4.2); Glucose 241 mg/dL (70-99); Potassium 3.7 mmol/L (3.3-5.1); Protein, Total 6.4 g/dL (5.9-8.4); Sodium Level 139 mmol/L (133-145); Total Bilirubin 0.33 mg/dL (0.00-1.30)
== END ==
LOC: OLS.SW 05:00
PROVIDERS: PCP Internal Medicine; Visit Provider Internal Medicine
DX: E11.9 Type 2 diabetes mellitus without complications (principal); I10 Essential (primary) hypertension; J44.9 Chronic obstructive pulmonary disease, unspecified
CPT/HCPCS: 36415; 80053; 85027

== ENCOUNTER → 2025-04-28 05:00 | Outpatient (REF) | payer MEDICAID, SELFPAY ==
[2025-04-28 08:26] LABS: Hematocrit 29.2 % (37-47); Hemoglobin 8.7 g/dL (12.0-15.0); Mean Corp Hgb Conc 29.8 g/dL (32-36); Mean Corpuscular Hgb 25.1 pg (27.0-32.0); Mean Corpuscular Volume 84.1 fL (81-99); Mean Platelet Vol. 10.1 fl (6.2-12.0); Platelet Count 163 K/mm3 (150-450); RBC Distribution Width SD 50.8 fl (35.1-43.9); Red Blood Count 3.47 M/mm3 (4.2-5.4); White Blood Count 5.1 K/mm3 (4.4-11.0)
[2025-04-28 08:42] LABS: Hemoglobin A1c 8.3 % (<=5.6)
[2025-04-28 09:21] LABS: ALB/GLOB Ratio 1.4 RATIO (0.9-2.4); AST(SGOT) 20 U/L (<=31); Alanine Aminotransfer ALT/SGPT 16 U/L (<=34); Albumin, Serum 3.7 g/dL (3.4-4.8); Alkaline Phosphatase 56 U/L (35-104); Anion Gap 11 (5-15); BUN 28 mg/dL (4-19); BUN/Creat Ratio 35.5 RATIO (10-20); Calcium,Total 9.3 mg/dL (7.6-11.0); Carbon Dioxide 29.9 mmol/L (21.0-32.0); Chloride 99 mmol/L (98-108); EST Glomerular Filtration Rate 84 (>60); Globulin 2.6 g/dL (2.2-4.2); Glucose 167 mg/dL (70-99); Magnesium 1.7 mg/dL (1.5-2.2); Potassium 4.5 mmol/L (3.3-5.1); Protein, Total 6.3 g/dL (5.9-8.4); Sodium Level 139 mmol/L (133-145); Thyroid Stim Hormone (TSH) 0.532 uIU/mL (0.300-4.200); Total Bilirubin 0.21 mg/dL (0.00-1.30)
== END ==
LOC: OLS.SW 05:00
PROVIDERS: PCP Internal Medicine; Visit Provider Internal Medicine
DX: E11.9 Type 2 diabetes mellitus without complications (principal); I10 Essential (primary) hypertension; J44.9 Chronic obstructive pulmonary disease, unspecified
CPT/HCPCS: 36415; 80053; 83036; 83735; 84443; 85027

== ENCOUNTER → 2025-05-05 05:00 | Outpatient (REF) | payer MEDICAID, SELFPAY ==
[2025-05-05 09:30] LABS: Hematocrit 28.3 % (37-47); Hemoglobin 8.6 g/dL (12.0-15.0); Mean Corp Hgb Conc 30.4 g/dL (32-36); Mean Corpuscular Hgb 25.3 pg (27.0-32.0); Mean Corpuscular Volume 83.2 fL (81-99); Platelet Count 184 K/mm3 (150-450); RBC Distribution Width CV 16.9 % (11.6-14.6); RBC Distribution Width SD 51.4 fl (35.1-43.9); White Blood Count 4.8 K/mm3 (4.4-11.0)
[2025-05-05 18:02] LABS: ALB/GLOB Ratio 1.4 RATIO (0.9-2.4); AST(SGOT) 41 U/L (<=31); Alanine Aminotransfer ALT/SGPT 28 U/L (<=34); Albumin, Serum 3.8 g/dL (3.4-4.8); Alkaline Phosphatase 61 U/L (35-104); Anion Gap 11 (5-15); BUN 24 mg/dL (4-19); BUN/Creat Ratio 33.6 RATIO (10-20); Calcium,Total 9.3 mg/dL (7.6-11.0); Carbon Dioxide 26.4 mmol/L (21.0-32.0); Chloride 100 mmol/L (98-108); Creatinine, Serum 0.72 mg/dL (0.70-1.20); EST Glomerular Filtration Rate 95 (>60); Globulin 2.8 g/dL (2.2-4.2); Glucose 164 mg/dL (70-99); Potassium 4.9 mmol/L (3.3-5.1); Protein, Total 6.6 g/dL (5.9-8.4); Sodium Level 138 mmol/L (133-145)
[2025-05-06 16:05] LABS: Total Bilirubin < 0.15 mg/dL (0.00-1.30)
== END ==
LOC: OLS.SW 05:00
PROVIDERS: PCP Internal Medicine; Visit Provider Internal Medicine
DX: E11.9 Type 2 diabetes mellitus without complications (principal)
CPT/HCPCS: 36415; 80053; 85027

== ENCOUNTER → 2025-07-15 | Outpatient (CLI) | payer MEDICAID, SELFPAY | END | disposition home or self-care (01) | LOC: LABSPEC 16:12 | PROVIDERS: PCP Internal Medicine; Visit Provider Podiatrist Foot & Ankle Surgery | DX: S81.802A Unspecified open wound, left lower leg, initial encounter (principal) | CPT/HCPCS: 87070; 87205 ==

== ENCOUNTER 2025-08-24 11:11 | Emergency (ER) | payer MEDICAID, SELFPAY ==
[2025-08-24 11:14] VITALS: BP 140/88; PULSE 84; RESP 18; TEMP 36.7; O2SAT 94
--- NOTE | 2025-08-24 11:15 | EX.ED.DYSGE1 ---
HPI History of Present Illness Chief Complaint: General Illness [facility] Medical History Anemia COPD (chronic obstructive pulmonary disease) Chronic hypoxic respiratory failure, on home oxygen therapy COPD (chronic obstructive pulmonary disease) Other specified peripheral vascular diseases Chronic painful diabetic polyneuropathy Venous insufficiency (chronic) (peripheral) Hypersomnia, unspecified Diabetes Left ventricular aneurysm Migraines Congestive heart failure (CHF) Osteoarthritis alf current use of insulin Old myocardial infarction Adult failure to thrive Anemia Bipolar disorder Non-smoker CPAP (continuous positive airway pressure) dependence On home oxygen therapy Myocardial infarct Hypertension Seizures History of ESBL E. coli infection Schizophrenia Edema of both lower extremities Diabetes PTSD (post-traumatic stress disorder) Depression Schizo affective schizophrenia Essential hypertension Chest pain Diabetes mellitus type 2, uncontrolled, with complications Back pain Asthma Knee pain Migraines Fatigue Hemorrhoids COPD (chronic obstructive pulmonary disease) Arthritis Pain syndrome, chronic Bipolar disorder Obstructive sleep apnea Stasis dermatitis of both legs Venous insufficiency of both lower extremities Super obese Open wound of left lower extremity GERD (gastroesophageal reflux disease) Benign hypertension ADHD (attention deficit hyperactivity disorder) Home Medications ?Medication ?Instructions ?Recorded ?Last Taken ?Type bupropion HCl 300 mg 24 hr tablet, 450 mg PO DAILY mental health 03/05/17 04/21/25 History extended release albuterol sulfate 90 mcg/actuation 2 puff inhalation Q4H PRN Sob &/Or 05/29/18 04/21/25 History aerosol inhaler Wheezing fluticasone propionate 50 2 spray NASAL DAILY allergies 08/04/19 04/21/25 History mcg/actuation nasal spray,suspension aspirin 81 mg chewable tablet 81 mg PO DAILY@0800 heart health 07/17/20 04/21/25 Rx buspirone 10 mg tablet 20 mg PO TID mood 01/25/22 04/21/25 History cetirizine 10 mg tablet (Zyrtec) 10 mg PO DAILY allergies 01/25/22 04/21/25 History colchicine 0.6 mg tablet 0.6 mg PO DAILY gout 01/25/22 04/21/25 History guaifenesin 600 mg tablet, 1,200 mg PO BID PRN Cough 01/25/22 04/20/25 History extended release 12 hr (Mucinex) lorazepam 0.5 mg tablet (Ativan) 0.5 - 1 mg PO BID PRN Panic 01/25/22 04/21/25 History Attack(S) primidone 250 mg tablet 750 mg PO QHS seizures 01/25/22 10/03/24 History triamcinolone acetonide 0.1 % 1 applic topical TID PRN Rash 01/25/22 04/20/25 History topical cream fluticasone 500 mcg-salmeterol 50 1 inh inhalation BID breathing 05/02/22 04/21/25 History mcg/dose blistr powdr for inhalation omeprazole 40 mg capsule,delayed 40 mg PO DAILY gerd 05/02/22 04/21/25 History release oxybutynin chloride 10 mg 15 mg PO DAILY bladder 05/02/22 04/21/25 History tablet,extended release 24 hr ergocalciferol (vitamin D2) 1,250 50,000 unit PO QMONTH bone health 08/10/22 04/21/25 History mcg (50,000 unit) capsule (Vitamin D2) lactulose 10 gram/15 mL oral 60 ml PO BID PRN Constipation 08/10/22 04/20/25 History solution pregabalin 150 mg capsule 150 mg PO TID pain 08/10/22 04/21/25 History ondansetron 4 mg disintegrating 4 mg PO Q8H PRN Nausea 10/03/24 04/20/25 History tablet trazodone 150 mg tablet 150 mg PO QHS sleep 10/03/24 04/20/25 History bisacodyl 5 mg tablet,delayed 5 mg PO QHS PRN constipation 5 10/30/24 04/20/25 Rx release (Gentle Laxative days #10 tabs (bisacodyl)) albuterol sulfate 2.5 mg/3 mL 2.5 mg inhalation Q6H PRN 02/25/25 04/21/25 History (0.083 %) solution for nebulization shortness of breath or wheezing escitalopram oxalate 20 mg tablet 20 mg PO DAILY MENTAL HEALTH 03/01/25 04/21/25 History aluminum-mag hydroxide-simethicone 5 ml PO ONCE 04/15/25 04/20/25 History 200 mg-200 mg-20 mg/5 mL oral susp (Antacid) magnesium hydroxide 400 mg/5 mL 15 ml PO QDAY PRN constipation 04/15/25 04/20/25 History oral suspension (Milk of Magnesia) paliperidone palmitate 117 mg/0.75 117 mg IM Q30D 04/15/25 04/21/25 History mL intramuscular syringe (Invega Sustenna) acetaminophen 500 mg tablet 1,000 mg PO TID 04/17/25 04/21/25 History insulin glargine 100 unit/mL (3 82 unit subcut QHS diabetes 04/17/25 04/20/25 History mL) subcutaneous pen (Lantus Solostar U-100 Insulin) insulin lispro 100 unit/mL See Rx Instructions subcut QAC DM 04/17/25 04/21/25 History subcutaneous pen insulin lispro 100 unit/mL 1 sliding scale dose subcut 04/17/25 04/21/25 History subcutaneous pen (Humalog KwikPen USEASDIRECTD (U-100) Insulin) lidocaine 4 % topical patch 1 patch topical QDAY 04/17/25 04/21/25 History (Aspercreme (lidocaine)) lisinopril 10 mg tablet 5 mg PO BID blood pressure 04/17/25 04/21/25 History nadolol 80 mg tablet 40 mg PO BID high blood pressure 04/17/25 04/21/25 History allopurinol 100 mg tablet 100 mg PO DAILY 04/21/25 04/21/25 History nutrition tx glu 120 ml PO TIDCM #0 mL 04/22/25 Unknown Rx intol,lac-free,soy-fiber 0.06 gram-1.2 kcal/mL liquid (Glucerna 1.2 Beau) furosemide 80 mg tablet 60 mg (0.75 x 80 mg) PO BID #60 04/23/25 04/21/25 Rx tabs insulin lispro 100 unit/mL See Protocol subcut ACHS #0 mL 04/23/25 Unknown Rx subcutaneous pen (Humalog KwikPen (U-100) Insulin) potassium chloride 20 mEq 20 meq PO DAILY #30 tabs 04/23/25 Unknown Rx tablet,extended release (K-Tab) peg 3350-electrolytes 236 240 ml PO Q10M #4,000 mL 07/11/25 Unknown Rx gram-22.74 gram-6.74 gram-5.86 gram solution (Golytely) Allergy/AdvReac Type Severity Reaction Status Date / Time meloxicam Allergy Severe Anaphylaxis Verified 08/24/25 11:17 vancomycin Allergy Severe BURNING Verified 08/24/25 11:17 RED RASH ON LEGGS amlodipine (From Norvasc) Allergy Swelling Verified 08/24/25 11:17 cefazolin sodium (From Ancef) Allergy Hives Verified 08/24/25 11:17 fexofenadine (From Nia) Allergy Shortness Verified 08/24/25 11:17 of breath nitrofurantoin (From Allergy Hives Verified 08/24/25 11:17 Macrobid) Penicillins Allergy Hives Verified 08/24/25 11:17 sumatriptan (From Imitrex) Allergy Shortness Verified 08/24/25 11:17 of breath adhesive AdvReac BURNING Verified 08/24/25 11:17 amitriptyline (From Elavil) AdvReac Other Verified 08/24/25 11:17 clindamycin AdvReac Diarrhea Verified 08/24/25 11:17 ziprasidone (From Geodon) AdvReac NEEDS Verified 08/24/25 11:17 FOLLOW-UP Family History Father CVA (cerebral vascular accident) Heart disease Mother Heart disease Surgical History History of elbow surgery (~06/2020) History of arthroscopic knee surgery History of left heart catheterization (07/16/20) Kidney stone H/O hernia repair Hx of hysterectomy Hx of section Social History household members: family housing: house Smoking Status: Never smoker alcohol intake: never substance use type: does not use caffeine: Yes (occasionally) MDM MDM MDM Narrative Medical decision making narrative: HISTORY OF PRESENT ILLNESS: Chief complaint: Shakiness 59-year-old female with a past medical history significant for type 2 diabetes, hypertension, COPD (2 to 3 L baseline O2), CHF, bipolar disorder, schizophrenia, PTSD, she reports shakiness for the last 3 days. She further states there is been going on for 4 days. Denies head trauma or headache. Denies focal numbness, weakness, loss sensation. Denies slurred speech, facial drooping. Endorses a normal appetite. Endorses normal fluid intake. Denies loss of consciousness, bowel or bladder incontinence or tongue biting. Denies nausea, vomiting or diarrhea. Denies any bleeding diathesis. Denies any new shortness of breath. Denies chest pain. Nuys abdominal pain. Denies urinary complaints. Denies SI, HI, auditory or visual hallucinations. REVIEW OF SYSTEMS: Pertinent positives: Shakiness Pertinent negatives: As per HPI PHYSICAL EXAM: Nursing triage notes reviewed, Vital signs reviewed Constitutional: please see [facility] HENT: MMM, no intraoral lesions or tongue biting noted Eyes: Pupils equal round and reactive to light, Extraocular muscles intact, visual hester intact, no nystagmus Neck: No stridor, no JVD, full neck ROM Lungs: Clear to auscultation, No wheezing or rales. No increased work of breathing, no conversational dyspnea, no accessory muscle use, no nasal flaring. No respiratory distress noted Heart: Regular rate and rhythm, No murmurs, No rubs and No gallops, 2+ distal pulses (radial, femoral, posterior tibial) in all extremities Abdomen: Soft, there is no tenderness, rigidity, rebound or guarding, no obvious peritoneal signs, no palpable pulsatile abdominal masses, no auscultated abdominal bruit : No CVAT Extremities: No edema Neuro: Alert and oriented x3, neuro exam at baseline, cranial nerves II through XII are intact. No pain with extraocular muscle movement. There is negative test of skew. 5 of 5 strength in upper and lower extremities in flexion extension. Intact sensation to light touch in upper and lower extremity dermatomes. No truncal or extremity ataxia. No dysdiadochokinesia. Normal gait. 2+ reflexes in upper and lower extremities. No meningeal signs. Negative Babinski. NIH of 0. Skin: No rash or lesions noted MEDICAL DECISION MAKING: Chief Complaint: please see HPI External records reviewed: Reviewed prior ED visits. Reviewed allergies. Reviewed past medical history. Reviewed current medications. Reviewed prior imaging studies. Reviewed CT scan of the brain from June 2022 which showed no evidence of acute intracranial pathology, no evidence of skull fracture, no evidence of mass. Factors affecting care: As per HPI Social determinants of health: history mental health disorder History obtained from others: EMS Consults: none [facility] Narrative: Patient was initially hemodynamically stable, afebrile and nontoxic-appearing. Exam without obvious signs of trauma. There are no focal neurologic deficits. There is no obvious tremor or shaking on my exam. I considered the following differential diagnosis: Medication side effect, tremor, seizure, electrolyte disturbance While I considered teofilo of etiologies the patient's presentation is not consistent with a acute life or limb-threatening etiology such as intracranial abnormality such as ICH without reported trauma. There is no focal neurologic deficits to suggest stroke. There is no reported loss of consciousness, tongue biting or bowel or bladder incontinence to suggest seizure. There was no report of decreased oral intake, nausea, vomiting or diarrhea to suggest dehydration or significant electrolyte abnormality precipitating tremor or shakiness. Her neurologic exam was intact/baseline without focal deficit. I suspect the patient's symptoms are related to her history of bipolar disorder, schizophrenia and use of long-term antipsychotic medication including Invega which can produce EPS. I instructed the patient to follow with her primary care physician for medication reconciliation. While there are some newer medications to treat movement disorders associated with antipsychotic medications (Ingrezza) as an emergency physician I did not feel well versed in prescribing these medications and would prefer for her primary care physician or psychiatrist to initiate treatment. Patient notes she has an appointment in 3 days on 08/27/2025. She notes symptoms improved with already prescribed Ativan. Patient's current antipsychotic regimen is once monthly shot of Invega. Her primary care physician can determine if this should be stopped before the the next scheduled dose. Will give a dose here in the emergency department. Encouraged her to continue take this medication at home as already prescribed. The patient and/or family, caregivers express understanding. The patient and/or family, caregivers agrees with the plan. Shared decision making: I will have a discussion with the patient and or visitors regarding risk/benefits of further testing or admission. They will be made aware of of the risk/benefits inherent in this decision they will be given the opportunity to voice understanding. Total critical care time today provided was at least 0 minutes. This excludes separately billable procedures. Critical care time (if documented) is secondary to the patient having high probability of clinically significant/life threatening deterioration in the patient's condition which required my urgent intervention. Impression: 1. EPS 2. History of bipolar disorder 3. History of schizophrenia Dispo: Discharge home This note was generated with [employer] dictation software. It may contain incorrect words, spelling, and punctuation that were not noted in review of the chart prior to signing. Discharge Plan Triage Chief Complaint: General Illness ED Provider: Erwin Jackson Dx/Rx/DC Orders Clinical Impression: Extrapyramidal disease, Tardive dyskinesia Instructions: Understanding Tardive Dyskinesia Prescriptions: No Action omeprazole 40 mg capsule,delayed release(DR/EC) 40 mg PO DAILY oxybutynin chloride 10 mg tablet extended release 24hr 15 mg PO DAILY pregabalin 150 mg capsule 150 mg PO TID ergocalciferol (vitamin D2) [Vitamin D2] 1,250 mcg (50,000 unit) capsule 50,000 unit PO QMONTH insulin lispro 100 unit/mL insulin pen See Rx Instructions subcut QAC Rx Instructions: 20 units with breakfast , 20 units with lunch acetaminophen 500 mg tablet 1,000 mg PO TID insulin lispro [Humalog KwikPen Insulin] 100 unit/mL insulin pen 1 sliding scale dose subcut USEASDIRECTD Rx Instructions: 180-200=2u 201-250=4u 251-300=6u 301-350=8u 351-400=10u 401-450=12u >451 notify lidocaine [Aspercreme (lidocaine)] 4 % adhesive patch,medicated 1 patch topical QDAY Rx Instructions: right hip alum-mag hydroxide-simeth [Antacid] 200-200-20 mg/5 mL suspension 5 ml PO ONCE Rx Instructions: administer between meals and at bedtime Invega Sustenna 117 mg/0.75 mL syringe 117 mg IM Q30D magnesium hydroxide [Milk of Magnesia] 400 mg/5 mL suspension 15 ml PO QDAY PRN (Reason: constipation) peg 3350-electrolytes [Golytely] 236-22.74-6.74 -5.86 gram recon soln 240 ml PO Q10M Qty: 4000 0RF Rx Instructions: until fecal effluent is clear bupropion HCl 300 MG tablet extended release 24 hr 450 mg PO DAILY Patient Comments: DEPRESSION albuterol sulfate 1 INHALER inhaler 2 puff INHALATION Q4H PRN (Reason: Sob &/Or Wheezing) fluticasone propionate 1 SPRAY spray,suspension 2 spray NASAL DAILY aspirin 81 MG tablet,chewable 81 mg PO DAILY@0800 0RF insulin glargine [Lantus Solostar U-100 Insulin] 100 unit/mL (3 mL) insulin pen 82 unit SUBCUT QHS cetirizine [Zyrtec] 10 mg Tablet 10 mg PO DAILY triamcinolone acetonide 0.1 % Cream 1 applic TOPICAL TID PRN (Reason: Rash) primidone 250 mg Tablet 750 mg PO QHS lorazepam [Ativan] 0.5 mg Tablet 0.5 - 1 mg PO BID PRN (Reason: Panic Attack(S)) buspirone 10 mg Tablet 20 mg PO TID colchicine 0.6 mg Tablet 0.6 mg PO DAILY guaifenesin [Mucinex] 600 mg Tablet Extended Release 12hr 1,200 mg PO BID PRN (Reason: Cough) fluticasone propion-salmeterol 500-50 mcg/dose blister with device 1 inh INHALATION BID lactulose 10 gram/15 mL solution 60 ml PO BID PRN (Reason: Constipation) ondansetron 4 MG tablet 4 mg PO Q8H PRN (Reason: Nausea) trazodone 150 mg tablet 150 mg PO QHS lisinopril 10 mg tablet 5 mg PO BID bisacodyl [Gentle Laxative (bisacodyl)] 5 mg tablet,delayed release (DR/EC) 5 mg PO QHS PRN (Reason: constipation) 5 Days Qty: 10 0RF escitalopram oxalate 20 mg tablet 20 mg PO DAILY albuterol sulfate 2.5 mg /3 mL (0.083 %) solution for nebulization 2.5 mg inhalation Q6H PRN (Reason: shortness of breath or wheezing) allopurinol 100 mg tablet 100 mg PO DAILY Glucerna 1.2 Beau 0.06-1.2 gram-kcal/mL Liquid 120 ml PO TIDCM Qty: 0 0RF insulin lispro [Humalog KwikPen Insulin] 100 unit/mL Insulin Pen See Protocol subcut ACHS Qty: 0 0RF Protocol: 3. Sliding Scale Insulin Med Dosing Condition: 150-189 mg/dl = 1 unit Condition: 190-229 mg/dl = 2 units Condition: 230-269 mg/dl = 3 units Condition: 270-309 mg/dl = 4 units Condition: 310-349 mg/dl = 5 units Condition: 350-399 mg/dl = 6 units Condition: 400-449 mg/dl = 7 units Condition: Greater than 449 call physician Protocol Text: - Use for Total Daily Dose of Insulin 37-55 units - Obsese, infected, or steroid patients MEDIUM DOSING ALGORITHIM potassium chloride [K-Tab] 20 mEq tablet extended release 20 meq PO DAILY Qty: 30 0RF furosemide 80 mg tablet 60 mg PO BID Qty: 60 0RF nadolol 80 mg tablet 40 mg PO BID Primary Care Provider: Cristal Wolf Referrals: Cristal Wolf MD [Primary Care Provider, Internal Medicine] Activity Restrictions/Additional Instructions: Thank you for trusting us with your care today! Your presentation is most consistent with likely medication side effect. This can be referred to tardive dyskinesia or extraparametal side effects from long-term antipsychotic medication use. Please take already prescribed Ativan for symptomatic relief Please take Tylenol (2 pills, 650 mg), ibuprofen (2 pills, 400 mg) every 6 hours as needed for pain and fever control. Please return to the emergency department if your symptoms change or worsen. Please follow with your primary care physician for further outpatient evaluation and management. Print Language: Romanian Disposition Disposition: Home, Self Care
[2025-08-24 11:54] VITALS: BP 140/88; PULSE 84; RESP 18; TEMP 36.7; O2SAT 94
== END 2025-08-24 11:55 | disposition home or self-care (01) ==
LOC: ED 11:40
PROVIDERS: Emergency Provider Emergency Medicine; PCP Internal Medicine; Visit Provider Emergency Medicine
DX: G25.9 Extrapyramidal and movement disorder, unspecified (principal); F20.9 Schizophrenia, unspecified; J96.11 Chronic respiratory failure with hypoxia; F31.9 Bipolar disorder, unspecified; J44.9 Chronic obstructive pulmonary disease, unspecified; E11.42 Type 2 diabetes mellitus with diabetic polyneuropathy; Z79.4 Long term (current) use of insulin; G24.01 Drug induced subacute dyskinesia; Z90.710 Acquired absence of both cervix and uterus; I10 Essential (primary) hypertension; Z99.89 Dependence on other enabling machines and devices; K21.9 Gastro-esophageal reflux disease without esophagitis; Z99.81 Dependence on supplemental oxygen; I25.2 Old myocardial infarction; G47.33 Obstructive sleep apnea (adult) (pediatric)
CPT/HCPCS: 99284

== ENCOUNTER 2025-08-25 09:53 | Inpatient (IN) | payer MEDICAID, SELFPAY ==
[2025-08-25] VITALS (16 sets, daily range): BP systolic 99–170; BP diastolic 66–96; PULSE 67–86; RESP 15–27; TEMP 35.8–37; O2SAT 98–100; BMI 46.3; BMI 46.9
--- NOTE | 2025-08-25 10:07 | EX.ED.DYSGE1 ---
HPI History of Present Illness Chief Complaint: Weakness Narrative Narrative: 59-year-old female past medical history of COPD, CHF anemia, wears 3 L of oxygen at home. She presents via EMS with generalized weakness, stating that she has a right upper extremity tremor that locks up at times. Of note, she was seen in the emergency department yesterday, and diagnosed with extraparametal disease and tar dive dyskinesia from her medications. According to her father, she lives independently. They are having a difficult time taking care of her at home, and he states that he has been running around for the last 2 weeks, and patient's sister had to cancel a doctor appointment today because she was exhausted from trying to Take Care of the patient. She denies any fevers or chills, no cough, no other symptoms except the fact that she states that she was seen yesterday for the tremor in her right upper extremity, and it got worse overnight. It is intermittent. No exacerbating or alleviating factors. 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 coli infection Schizophrenia Edema of both lower extremities Diabetes PTSD (post-traumatic stress disorder) Depression Schizo affective schizophrenia Essential hypertension Chest pain Diabetes mellitus type 2, uncontrolled, with complications Back pain Asthma Knee pain Migraines Fatigue Hemorrhoids COPD (chronic obstructive pulmonary disease) Arthritis Pain syndrome, chronic Bipolar disorder Obstructive sleep apnea Stasis dermatitis of both legs Venous insufficiency of both lower extremities Super obese Open wound of left lower extremity GERD (gastroesophageal reflux disease) Benign hypertension ADHD (attention deficit hyperactivity disorder) Home Medications ?Medication ?Instructions ?Recorded ?Last Taken ?Type bupropion HCl 300 mg 24 hr tablet, 450 mg PO DAILY mental health 03/05/17 08/24/25 History extended release albuterol sulfate 90 mcg/actuation 2 puff inhalation Q4H PRN Sob &/Or 05/29/18 08/24/25 History aerosol inhaler Wheezing fluticasone propionate 50 2 spray NASAL DAILY allergies 08/04/19 08/24/25 History mcg/actuation nasal spray,suspension aspirin 81 mg chewable tablet 81 mg PO DAILY@0800 heart health 07/17/20 08/24/25 Rx buspirone 10 mg tablet 20 mg PO TID mood 01/25/22 08/24/25 History cetirizine 10 mg tablet (Zyrtec) 10 mg PO DAILY allergies 01/25/22 08/24/25 History colchicine 0.6 mg tablet 0.6 mg PO DAILY gout 01/25/22 08/24/25 History guaifenesin 600 mg tablet, 1,200 mg PO BID PRN Cough 01/25/22 08/24/25 History extended release 12 hr (Mucinex) primidone 250 mg tablet 750 mg PO QHS seizures 01/25/22 08/24/25 History triamcinolone acetonide 0.1 % 1 applic topical TID PRN Rash 01/25/22 08/11/25 History topical cream fluticasone 500 mcg-salmeterol 50 1 inh inhalation BID breathing 05/02/22 08/24/25 History mcg/dose blistr powdr for inhalation omeprazole 40 mg capsule,delayed 40 mg PO DAILY gerd 05/02/22 08/24/25 History release ergocalciferol (vitamin D2) 1,250 50,000 unit PO QMONTH bone health 08/10/22 04/21/25 History mcg (50,000 unit) capsule (Vitamin D2) lactulose 10 gram/15 mL oral 60 ml PO BID PRN Constipation 08/10/22 04/20/25 History solution pregabalin 150 mg capsule 150 mg PO TID pain 08/10/22 08/24/25 History ondansetron 4 mg disintegrating 4 mg PO Q8H PRN Nausea 10/03/24 08/23/25 History tablet trazodone 150 mg tablet 150 mg PO QHS sleep 10/03/24 08/24/25 History albuterol sulfate 2.5 mg/3 mL 2.5 mg inhalation Q6H PRN 02/25/25 04/21/25 History (0.083 %) solution for nebulization shortness of breath or wheezing escitalopram oxalate 20 mg tablet 20 mg PO DAILY MENTAL HEALTH 03/01/25 08/24/25 History paliperidone palmitate 117 mg/0.75 117 mg IM Q30D 04/15/25 08/22/25 History mL intramuscular syringe (Invega Sustenna) acetaminophen 500 mg tablet 1,000 mg PO TID 04/17/25 08/24/25 History insulin glargine 100 unit/mL (3 82 unit subcut [facility] diabetes 04/17/25 04/20/25 History mL) subcutaneous pen (Lantus Solostar U-100 Insulin) insulin lispro 100 unit/mL See Rx Instructions subcut QA DM 04/17/25 04/21/25 History subcutaneous pen insulin lispro 100 unit/mL 1 sliding scale dose subcut 04/17/25 04/21/25 History subcutaneous pen (Humalog KwikPen USEASDIRECTD (U-100) Insulin) lidocaine 4 % topical patch 1 patch topical QDAY 04/17/25 08/24/25 History (Aspercreme (lidocaine)) lisinopril 10 mg tablet 5 mg PO BID blood pressure 04/17/25 08/24/25 History nadolol 80 mg tablet 40 mg PO BID high blood pressure 04/17/25 08/24/25 History allopurinol 100 mg tablet 100 mg PO DAILY 04/21/25 08/24/25 History insulin lispro 100 unit/mL See Protocol subcut ACHS #0 mL 04/23/25 Unknown Rx subcutaneous pen (Humalog KwikPen (U-100) Insulin) dicyclomine 20 mg tablet 20 mg PO TID 08/25/25 08/24/25 History hydrocodone 7.5 mg-acetaminophen 1 tab PO 4X/DAY PRN pain 08/25/25 08/24/25 History 325 mg tablet hydroxyzine pamoate 25 mg capsule 25 mg PO TID PRN 08/25/25 08/24/25 History lorazepam 1 mg tablet 1 mg PO BID 08/25/25 08/24/25 History miconazole nitrate 2 % topical 1 applic topical PRN 08/25/25 Unknown History cream montelukast 10 mg tablet 10 mg PO DAILY 08/25/25 08/24/25 History oxybutynin chloride 15 mg 15 mg PO DAILY 08/25/25 08/24/25 History tablet,extended release 24 hr Allergy/AdvReac Type Severity Reaction Status Date / Time meloxicam Allergy Severe Anaphylaxis Verified 08/25/25 10:01 vancomycin Allergy Severe BURNING Verified 08/25/25 10:01 RED RASH ON LEGGS amlodipine (From Norvasc) Allergy Swelling Verified 08/25/25 10:01 cefazolin sodium (From Ancef) Allergy Hives Verified 08/25/25 10:01 fexofenadine (From Nia) Allergy Shortness Verified 08/25/25 10:01 of breath nitrofurantoin (From Allergy Hives Verified 08/25/25 10:01 Macrobid) Penicillins Allergy Hives Verified 08/25/25 10:01 sumatriptan (From Imitrex) Allergy Shortness Verified 08/25/25 10:01 of breath adhesive AdvReac BURNING Verified 08/25/25 10:01 amitriptyline (From Elavil) AdvReac Other Verified 08/25/25 10:01 clindamycin AdvReac Diarrhea Verified 08/25/25 10:01 ziprasidone (From Geodon) AdvReac NEEDS Verified 08/25/25 10:01 FOLLOW-UP Family History Father CVA (cerebral vascular accident) Heart disease Mother Heart disease Surgical History History of elbow surgery (~06/2020) History of arthroscopic knee surgery History of left heart catheterization (07/16/20) Kidney stone H/O hernia repair Hx of hysterectomy Hx of section Social History household members: family housing: house Smoking Status: Never smoker alcohol intake: never substance use type: does not use caffeine: Yes (occasionally) ROS ROS ED ROS Narrative Review of systems positive for tremor of right upper extremity, and shakiness. Positive generalized weakness. No fevers or chills, no cough, no exacerbating or alleviating factors. States she gets muscle tightness and that locks up on her and has been doing so for the last 4 to 5 days. EXAM Physical Exam Narrative Exam Narrative: Afebrile. Vital signs noted. Nontoxic-appearing. Cardiovascular examination feels regular rate and rhythm. Lungs are clear to auscultation bilaterally. Mild tachypnea. Abdomen is soft and nontender. Occasional tremor of right upper extremity. Appears neurovasc intact with palpable radial pulse, right. Tremoring stops with mild distraction at times. Stopped spontaneously as well. Moves all extremities. Const Vital Signs: 08/25/25 10:01 08/25/25 10:04 08/25/25 11:08 Temperature 98.5 F 98.6 F Temperature Source Oral Oral Pulse Rate 86 80 Respiratory Rate 27 H 22 H Respiratory Effort Normal Non-Labored Respiratory Pattern Normal Blood Pressure 170/79 H 109/66 Blood Pressure Mean 109 80 Pulse Ox 98 98 Oxygen Delivery Method Nasal Cannula Nasal Cannula Oxygen Flow Rate (L/min) 3 3 08/25/25 12:02 Temperature 98.6 F Temperature Source Pulse Rate 73 Respiratory Rate 22 H Respiratory Effort Respiratory Pattern Blood Pressure 99/68 Blood Pressure Mean 78 Pulse Ox 99 Oxygen Delivery Method Oxygen Flow Rate (L/min) MDM MDM MDM Narrative Medical decision making narrative: I reviewed the patient's prior records and ED visits. I reviewed her laboratory work as well. She was seen for the same thing by myself in April of this year, approximately 4 months ago because they are having problems taking care of her at home. She was seen yesterday, and has listed as her problem list bipolar disorder and schizophrenia. It was thought that she may have more extraparametal side effects from medication she is taking. I had discussion with her father as well, and although she lives independently, they are having problems taking care of her. He feels that she will require at least temporary placement in rehabilitation for generalized weakness. I consult social work. I will obtain baseline laboratories as well. EKG was obtained and interpreted by myself independently as normal sinus rhythm at 74 bpm without ectopy. She does have slight ST depression anteriorly with T wave inversion. She did have ST depression when compared to prior EKG in April. In review of her laboratory work she has normal white count of 4.7 with hemoglobin 12.4, hematocrit 37.2, platelet count low at 138 but when compared to prior labs she had chronic thrombocytopenia in the past. Sodium is low at 128 with chloride 87, anion gap slightly elevated at 18. I feel this is all in relation to her glucose of 745. In order to help rule out diabetic ketoacidosis, I added an acetone and a venous blood gas. Urinalysis is negative for infection with 0-5 white cells. There are 15 ketones. I am hesitant to give the patient a large amount of IV fluids given her history of CHF. However, I do feel that she may be able to tolerate 1 L as she has history of heart failure with preserved ejection fraction. She was started on an insulin drip given her elevated anion gap and blood glucose in the 700s. Chest x-ray interpreted by myself independently shows vascular congestion and elevated right hemidiaphragm which is chronic. I reviewed the radiology report which confirms my independent interpretation. There is no consolidation where I think she has a pneumonia, no pneumothorax. I do not feel antibiotics are indicated. pH on venous blood gas shows it to be 7.47 with a pCO2 of 45, bicarb 33. I do not think that she has an acidosis given her neutral pH. Initially, patient stated that she was taking her insulin, but her father states that they ran out of the small vial of insulin and were told by the pharmacy that they would not refill it until August. Hence, she admitted that she had not been taking her insulin as directed which is the probable cause of her hyperglycemia. In review of her acetone, it is elevated 2.0. At this point in time, I do not feel that she actually acidotic, but given her severe hyperglycemia and the need for insulin drip, patient was discussed with Dr. Jenni Swartz for admission to the ICU. Critical care time 31 minutes. Disposition is admitted in guarded condition. History & Record Review Discussion w/independent historian: Patient and Family (Father) Additional record(s) reviewed:: Prior inpatient record (EF of 65 in April of this year), Prior ED visit (Admitted for inability to care for self previously.) and Prior labs (Previous thrombocytopenia) Lab Data Attestation: I reviewed the patient's lab results. Labs: Laboratory Results - last 24 hr 08/25/25 08/25/25 08/25/25 10:11 10:27 11:50 WBC 4.7 RBC 4.25 Hgb 12.4 Hct 37.2 MCV 87.5 MCH 29.2 MCHC 33.3 RDW Std Deviation 40.3 RDW Coeff of Jocy 12.6 Plt Count 138 L MPV 10.2 Immature Gran % (Auto) 0.200 Neut % (Auto) 79.5 H Lymph % (Auto) 12.8 L [place] % (Auto) 7.5 Eos % (Auto) 0.0 Baso % (Auto) 0.0 Absolute Neuts (auto) 3.7 Absolute Lymphs (auto) 0.60 L Nucleated RBC % 0 Sodium 128 L Potassium 4.7 Chloride 87 L Carbon Dioxide 22.3 Anion Gap 18 H BUN 17 Creatinine 0.86 Estim Creat Clear Calc 91.88 Est GFR (MDRD) Non-Af 77 BUN/Creatinine Ratio 19.7 Glucose 745 H* Calcium 9.6 Phosphorus 3.4 Magnesium 1.5 Total Bilirubin 0.37 AST 16 ALT 12 Alkaline Phosphatase 60 Total Protein 7.0 Albumin 3.8 Globulin 3.2 Albumin/Globulin Ratio 1.2 b-Hydroxybutyric mmol/L 2.0 H Urine Color Yellow Urine Clarity Clear Urine pH 6.0 Ur Specific [place] 1.010 Urine Protein Negative Urine Glucose (UA) 1000 H Urine Ketones 15 H Urine Occult Blood Negative Urine Nitrite Negative Urine Bilirubin Negative Urine Urobilinogen Normal Ur Leukocyte Esterase Negative Urine RBC 0 SEEN Urine WBC 0-5 SEEN Ur Squamous Epith Cells 0-5 SEEN Urine Bacteria 0 SEEN Urine Mucus 0 SEEN POC Glucose > 500 H* ABG Data ABG results: ABG 08/25/25 11:14 Specimen Type NAKUL Sample Site Not entered VBG pH 7.47 H VBG pO2 50 H VBG HCO3 33 H VBG Total CO2 34 H VBG O2 Sat (Calc) 87 H VBG Base Excess 9 H POC Mix VBG pCO2 Pt Tmp 45.2 O2 Delivery Device Not entered Radiography Chest X-Ray - ED: 1 View, Read by ED Physician, Read by Radiologist, No Acute Disease and Chronic Changes Diagnostic Testing: Clinical Impression(s) from Imaging Studies Chest X-Ray 08/25/25 10:14 IMPRESSION: Stable elevation of the right hemidiaphragm. Mild degree of vascular congestion. Reading Location: [id number] Management Discussion w/another healthcare provider: Hospitalist (Dr. Jenni Swartz) Critical Care Time Critical Care Time: Yes Critical care time (excluding procedures): 30-74 minutes (31 minutes), Including time spent:, Discussing w/Patient &/or Family/Director Of Casino Marketing, Discussing w/Consultants, Arranging Admission or Transfer and Performing Direct Patient Care at Bedside Discharge Plan Dx/Rx/DC Orders Clinical Impression: Hyperglycemia due to diabetes mellitus, Hyponatremia, Generalized weakness, Adult failure to thrive, Unable to care for self, Thrombocytopenia Disposition Disposition: Acute Care Hospital [facility]
--- NOTE | 2025-08-25 10:14 | RAD_ITS ---
PROCEDURE: CHEST 1 VIEW (PORTABLE) 08/25/2025 REASON FOR EXAM: COPD TECHNIQUE: Frontal view of the chest. COMPARISON: Prior study dated April 21, 2025. FINDINGS: Hardware: EKG electrodes are seen. Heart: The heart size is normal. Lungs: Stable elevation of the right hemidiaphragm. Mild degree of vascular congestion. Bones: Degenerative changes are identified within the thoracic spine. RAD/Chest 1 View (Portable) IMPRESSION: Stable elevation of the right hemidiaphragm. Mild degree of vascular congestion. Reading Location: [id number]
[2025-08-25 10:32] LABS: Mucous, Urine 0 SEEN /hpf (<or=2+); Red Blood Cells-Urine 0 SEEN /hpf (0-5)
[2025-08-25 10:33] LABS: Hematocrit 37.2 % (37-47); Hemoglobin 12.4 g/dL (12.0-15.0); Immature Granulocytes Count 0.010 X10^3/uL (0.0-0.0); Mean Corp Hgb Conc 33.3 g/dL (32-36); Mean Corpuscular Volume 87.5 fL (81-99); Mean Platelet Vol. 10.2 fl (6.2-12.0); NRBC Flagged by Analyzer 0 % (0-5); POSITIVE DIFFERENTIAL YES; Platelet Count 138 K/mm3 (150-450); RBC Distribution Width CV 12.6 % (11.6-14.6); RBC Distribution Width SD 40.3 fl (35.1-43.9); Red Blood Count 4.25 M/mm3 (4.2-5.4); White Blood Count 4.7 K/mm3 (4.4-11.0)
[2025-08-25 10:43] LABS: Color, Urine Yellow (Yellow); Glucose, Dipstick 1000 mg/dl (Normal); Ketone-Dipstick 15 mg/dl (Negative); Leukocyte Esterase-Dipstick Negative /ul (Negative); Nitrite-Dipstick Negative (Negative); Occult Blood-Urine Negative /ul (Negative); Protein-Dipstick Negative (Negative); Specific Gravity, Urine 1.010 (1.002-1.030); Urine Bilirubin Dipstick Negative (Negative)
[2025-08-25 10:53] LABS: AST(SGOT) 16 U/L (<=31); Alanine Aminotransfer ALT/SGPT 12 U/L (<=34); Albumin, Serum 3.8 g/dL (3.4-4.8); Alkaline Phosphatase 60 U/L (35-104); Anion Gap 18 (5-15); BUN 17 mg/dL (4-19); BUN/Creat Ratio 19.7 RATIO (10-20); Calcium,Total 9.6 mg/dL (7.6-11.0); Carbon Dioxide 22.3 mmol/L (21.0-32.0); Chloride 87 mmol/L (98-108); Estimated Creatinine Clearance 91.88 ml/min (50-250); Globulin 3.2 g/dL (2.2-4.2); Glucose 745 mg/dL (70-99); Potassium 4.7 mmol/L (3.3-5.1)
--- NOTE | 2025-08-25 10:55 | ED.RN ---
blood glucose 745. dr ren
[2025-08-25 10:57] LABS: Squamous Epithelial Cells - UA 0-5 SEEN /hpf (5-10)
--- NOTE | 2025-08-25 11:00 | EKG12_ITS ---
Test Reason : Blood Pressure : */* mmHG Vent. Rate : 74 BPM Atrial Rate : 74 BPM P-R Int : 164 ms QRS Dur : 100 ms QT Int : 380 ms P-R-T Axes : 51 -5 -21 degrees QTcB Int : 421 ms Normal sinus rhythm ST & T wave abnormality, consider anterior ischemia Abnormal ECG Confirmed by GINGER RIZO, VENU ([id number]), subeditor KARMEN ORTIZ ([id number]) on 08/27/2025 1:20:07 PM Referred By: Confirmed By: VENU MILES MD
[2025-08-25 11:18] LABS: SITE Not entered; VBG BASE EXCESS 9 mmol/L (-1.0-3.5); VBG PO2 50 mmHg (25-40); VBG SO2 87 % (50-70); VBG TCO2 34 mmol/L (23-33)
[2025-08-25 11:23] LABS: Magnesium 1.5 mg/dL (1.5-2.2)
[2025-08-25 11:40] LABS: BETA-HYDROXYBUTYRATE 2.0 mmol/L (0.0-0.3)
[2025-08-25] MEDS: Insulin Lispro 100 UNIT in 0.9% Normal Saline (100mL Bag) 99 ML 20.7 UNIT CONT INF (11:54)
[2025-08-25] MEDS: 0.9% Normal Saline (1000mL) 1,000 ML 999 ML IV (11:54)
--- NOTE | 2025-08-25 12:40 | CM.ED ---
Social Work SW met with patient and patients father. Patient stated she had been doing well at home until this last week where she has needed help with her ADLs. Dad stated he and patients sister have been caring for patient but they are both exhausted and not able to continue to do so. Patient initially resistive to discussion of SNF placement, however ultimately stated she understood that she needs more assistance than her family can provide. Patient does not want to return to [facility], SW assured patient she was able to choose other SNFs. No other needs identified at this time. Plan: Discharge to SNF when medically ready. Amalia Tidwell, HEEL SEAM RUBBER, RIDING COACH
--- NOTE | 2025-08-25 13:29 | CT_ITS ---
PROCEDURE: CTA HEAD AND NECK W/ CONTRAST 08/25/2025 REASON FOR EXAM: ABNORMAL RIGHT ARM MOVEMENTS TECHNIQUE: Procedure Code: CTCTA.HDNCK Modality: CT Procedure: CTA HEAD AND NECK W/ CONTRAST Multiplanar Sagittal and Coronal images were obtained. 3D post processing was performed CONTRAST: Isovue-300 VOLUME: 100 mL One or more dose reduction techniques were used (e.g., Automated exposure control, adjustment of the mA and/or kV according to patient size, use of iterative reconstruction technique). RADIATION DOSE SUMMARY: CTDlvol: 20.8 mGy DLP: 712.58 mGycm COMPARISON: Prior unenhanced CT scan of the brain done earlier in the day. FINDINGS: Aortic Arch: Normal size and branching pattern. No significant atherosclerotic plaque. Brachiocephalic and Subclavians: Mild atherosclerotic plaque without significant stenosis. RIGHT Carotid: Right CCA: Unremarkable. Right ICA: Mild calcified and soft plaque. Maximum stenosis (NASCET): <50 % Right ECA: Unremarkable. LEFT Carotid: Left CCA: Unremarkable. Left ICA: Unremarkable. Maximum stenosis (NASCET): Unremarkable % Left ECA: Unremarkable. Vertebrals: Codominant. Arise from the subclavians. Both vertebrals form the basilar. RIGHT Vertebral: Unremarkable. LEFT Vertebral: Unremarkable. Anatomy: [place] anatomy is normal. Aneurysm or avm: No intracranial aneurysms or large vascular malformations are identified. Anterior cerebral arteries: Unremarkable: Middle cerebral arteries: Unremarkable. Basilar artery: Unremarkable. Posterior cerebral arteries: Unremarkable. Other major branches of the posterior circulation: Unremarkable. Major venous structures: Unremarkable. Other findings: Neck: Minimally enlarged mediastinal lymph nodes. Lungs: Bones: CT/CTA Head AND Neck W/ Contrast IMPRESSION: No significant stenosis is seen. Reading Location: [id number]
--- NOTE | 2025-08-25 13:29 | CT_ITS ---
PROCEDURE: BRAIN/HEAD WITHOUT CONTRAST 08/25/2025 REASON FOR EXAM: ABNORMAL MOVEMENTS OF RIGHT ARM TECHNIQUE: Procedure Code: CTBR Modality: CT Procedure: BRAIN/HEAD WITHOUT CONTRAST Coronal and Sagittal reconstruction series were provided. One or more dose reduction techniques were used (e.g., Automated exposure control, adjustment of the mA and/or kV according to patient size, use of iterative reconstruction technique. RADIATION DOSE SUMMARY: CTDlvol: 44.99 mGy DLP: 829.85 mGycm COMPARISON: Prior study dated June 24, 2022. FINDINGS: Brain: Within normal limits for age CSF Spaces: Normal Sinuses/Mastoids: Focal opacification of the posterior left ethmoid sinus. Bones: Unremarkable CT/Brain/Head without Contrast IMPRESSION: No acute abnormality is seen. Reading Location: [id number]
--- NOTE | 2025-08-25 14:12 | PCM.HP.STD ---
HPI - General General Date of Admission: 08/25/25 Date of Service: 08/25/25 Chief Complaint: Generalized weakness and right upper extremity tremor HPI Narrative GARTH MACK, is a 59-year-old female with a history of COPD on 3 L chronic home O2, heart failure with preserved ejection fraction, diabetes, ABRAM, schizoaffective disorder, gout, GERD who presented to [facility] ED 08/25/2025 due to generalized weakness as well as right upper extremity tremor that locks up at times. She was in the ED yesterday and thought to have extrapyramidal symptoms from her medications. Patient's father who helps take care of her is having a difficult time and they are interested in possible placement. In the ED temp 98.5, heart rate 86, blood pressure 109/66 with respiratory rate 22 pulse ox 98% on 3 L nasal cannula. CBC with hemoglobin 12.4, white blood count 4.7, platelet count 138, CMP with a normal bicarb at 22 but an anion gap of 18 and glucose found to be 745, liver panel within normal limits. UA with 15 ketones in the thousand glucose. VBG obtained which showed a pH of 7.47, bicarb of 33 and a pCO2 of 45. Beta hydroxybutyrate 2. Patient started on insulin drip and given some fluids, there was concern she could get fluid overloaded so she was hydrated cautiously and hospitalist contacted for admission. Patient evaluated at bedside with father present. Reportedly for the past 1 to 2 weeks she has had a right upper extremity tremor that comes and goes and will last 5 to 10 minutes at a time, she notes rhythmic tremor and feels it is difficult to open her hand or to fully straighten her elbow and then will be fine for period of time before symptoms returned, denies any headache, no neck pain, no recent physical trauma, no weakness in upper extremity or paresthesias. Outside of these periods of tremor does not feel she has limitations in that arm and there is no pain in her arm or shoulder. No changes in vision. She does have some generalized weakness but her main concern is her right upper extremity tremor. Does note some chronic diarrhea but is being worked up outpatient for this this is not new, no new chest pain or shortness of breath. No nausea, no changes in urination. Did report she was unsure how she was post to take her insulin and then ran out of some of it so she has not taken any insulin. Does note significant stressors recently with her son no longer wanting to talk to her and does not want her to be his guardian anymore (he lives in a [place] [facility]) and that she has been very traumatized and distressed by this. Denies history of any seizures no recent medication changes. 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 coli infection Schizophrenia Edema of both lower extremities Diabetes PTSD (post-traumatic stress disorder) Depression Schizo affective schizophrenia Essential hypertension Chest pain Diabetes mellitus type 2, uncontrolled, with complications Back pain Asthma Knee pain Migraines Fatigue Hemorrhoids COPD (chronic obstructive pulmonary disease) Arthritis Pain syndrome, chronic Bipolar disorder Obstructive sleep apnea Stasis dermatitis of both legs Venous insufficiency of both lower extremities Super obese Open wound of left lower extremity GERD (gastroesophageal reflux disease) Benign hypertension ADHD (attention deficit hyperactivity disorder) Home Medications ?Medication ?Instructions ?Recorded ?Last Taken ?Type bupropion HCl 300 mg 24 hr tablet, 450 mg PO DAILY mental health 03/05/17 08/24/25 History extended release albuterol sulfate 90 mcg/actuation 2 puff inhalation Q4H PRN Sob &/Or 05/29/18 08/24/25 History aerosol inhaler Wheezing fluticasone propionate 50 2 spray NASAL DAILY allergies 08/04/19 08/24/25 History mcg/actuation nasal spray,suspension aspirin 81 mg chewable tablet 81 mg PO DAILY@0800 heart health 07/17/20 08/24/25 Rx buspirone 10 mg tablet 20 mg PO TID mood 01/25/22 08/24/25 History cetirizine 10 mg tablet (Zyrtec) 10 mg PO DAILY allergies 01/25/22 08/24/25 History colchicine 0.6 mg tablet 0.6 mg PO DAILY gout 01/25/22 08/24/25 History guaifenesin 600 mg tablet, 1,200 mg PO BID PRN Cough 01/25/22 08/24/25 History extended release 12 hr (Mucinex) primidone 250 mg tablet 750 mg PO QHS seizures 01/25/22 08/24/25 History triamcinolone acetonide 0.1 % 1 applic topical TID PRN Rash 01/25/22 08/11/25 History topical cream fluticasone 500 mcg-salmeterol 50 1 inh inhalation BID breathing 05/02/22 08/24/25 History mcg/dose blistr powdr for inhalation omeprazole 40 mg capsule,delayed 40 mg PO DAILY gerd 05/02/22 08/24/25 History release ergocalciferol (vitamin D2) 1,250 50,000 unit PO QMONTH bone health 08/10/22 04/21/25 History mcg (50,000 unit) capsule (Vitamin D2) lactulose 10 gram/15 mL oral 60 ml PO BID PRN Constipation 08/10/22 04/20/25 History solution pregabalin 150 mg capsule 150 mg PO TID pain 08/10/22 08/24/25 History ondansetron 4 mg disintegrating 4 mg PO Q8H PRN Nausea 10/03/24 08/23/25 History tablet trazodone 150 mg tablet 150 mg PO QHS sleep 10/03/24 08/24/25 History albuterol sulfate 2.5 mg/3 mL 2.5 mg inhalation Q6H PRN 02/25/25 04/21/25 History (0.083 %) solution for nebulization shortness of breath or wheezing escitalopram oxalate 20 mg tablet 20 mg PO DAILY MENTAL HEALTH 03/01/25 08/24/25 History paliperidone palmitate 117 mg/0.75 117 mg IM Q30D 04/15/25 08/22/25 History mL intramuscular syringe (Invega Sustenna) acetaminophen 500 mg tablet 1,000 mg PO TID 04/17/25 08/24/25 History insulin glargine 100 unit/mL (3 82 unit subcut QHS diabetes 04/17/25 04/20/25 History mL) subcutaneous pen (Lantus Solostar U-100 Insulin) insulin lispro 100 unit/mL See Rx Instructions subcut QAC DM 04/17/25 04/21/25 History subcutaneous pen insulin lispro 100 unit/mL 1 sliding scale dose subcut 04/17/25 04/21/25 History subcutaneous pen (Humalog KwikPen USEASDIRECTD (U-100) Insulin) lidocaine 4 % topical patch 1 patch topical QDAY 04/17/25 08/24/25 History (Aspercreme (lidocaine)) lisinopril 10 mg tablet 5 mg PO BID blood pressure 04/17/25 08/24/25 History nadolol 80 mg tablet 40 mg PO BID high blood pressure 04/17/25 08/24/25 History allopurinol 100 mg tablet 100 mg PO DAILY 04/21/25 08/24/25 History insulin lispro 100 unit/mL See Protocol subcut ACHS #0 mL 04/23/25 Unknown Rx subcutaneous pen (Humalog KwikPen (U-100) Insulin) dicyclomine 20 mg tablet 20 mg PO TID 08/25/25 08/24/25 History hydrocodone 7.5 mg-acetaminophen 1 tab PO 4X/DAY PRN pain 08/25/25 08/24/25 History 325 mg tablet hydroxyzine pamoate 25 mg capsule 25 mg PO TID PRN 08/25/25 08/24/25 History lorazepam 1 mg tablet 1 mg PO BID 08/25/25 08/24/25 History miconazole nitrate 2 % topical 1 applic topical PRN 08/25/25 Unknown History cream montelukast 10 mg tablet 10 mg PO DAILY 08/25/25 08/24/25 History oxybutynin chloride 15 mg 15 mg PO DAILY 08/25/25 08/24/25 History tablet,extended release 24 hr Allergy/AdvReac Type Severity Reaction Status Date / Time meloxicam Allergy Severe Anaphylaxis Verified 08/25/25 10:01 vancomycin Allergy Severe BURNING Verified 08/25/25 10:01 RED RASH ON LEGGS amlodipine (From Norvasc) Allergy Swelling Verified 08/25/25 10:01 cefazolin sodium (From Ancef) Allergy Hives Verified 08/25/25 10:01 fexofenadine (From Nia) Allergy Shortness Verified 08/25/25 10:01 of breath nitrofurantoin (From Allergy Hives Verified 08/25/25 10:01 Macrobid) Penicillins Allergy Hives Verified 08/25/25 10:01 sumatriptan (From Imitrex) Allergy Shortness Verified 08/25/25 10:01 of breath adhesive AdvReac BURNING Verified 08/25/25 10:01 amitriptyline (From Elavil) AdvReac Other Verified 08/25/25 10:01 clindamycin AdvReac Diarrhea Verified 08/25/25 10:01 ziprasidone (From Geodon) AdvReac NEEDS Verified 08/25/25 10:01 FOLLOW-UP Family History Father CVA (cerebral vascular accident) Heart disease Mother Heart disease Surgical History History of elbow surgery (~06/2020) History of arthroscopic knee surgery History of left heart catheterization (07/16/20) Kidney stone H/O hernia repair Hx of hysterectomy Hx of section Social History household members: family housing: house Smoking Status: Never smoker alcohol intake: never substance use type: does not use caffeine: Yes (occasionally) ROS ROS Narrative General: Denies fever/chills HENT: Denies headache, denies stuffy nose, denies sore throat EYES: Denies changes in vision Resp: Denies cough, denies any changes in shortness of breath Cardiac: Denies chest pain GI: Denies abdominal pain, does have some chronic diarrhea, denies nausea/vomiting : Denies changes in urination Extremity: Denies any new swelling MSK: Some generalized weakness but denies any focal weakness neuro: Denies any numbness/tingling Heme: Denies any bleeding or bruising Skin: Does have some skin grafts to left lower extremity Psychiatric: Feeling anxious, has had a lot of stress with her son Vital Signs Vital Signs Vital Signs: 08/25/25 10:01 08/25/25 10:04 08/25/25 11:08 Temperature 98.5 F 98.6 F Temperature Source Oral Oral Pulse Rate 86 80 Respiratory Rate 27 H 22 H Respiratory Effort Normal Non-Labored Respiratory Pattern Normal Blood Pressure 170/79 H 109/66 Blood Pressure Mean 109 80 Pulse Ox 98 98 Oxygen Delivery Method Nasal Cannula Nasal Cannula Oxygen Flow Rate (L/min) 3 3 08/25/25 12:02 08/25/25 14:10 Temperature 98.6 F Temperature Source Pulse Rate 73 85 Respiratory Rate 22 H 18 Respiratory Effort Respiratory Pattern Blood Pressure 99/68 153/87 H Blood Pressure Mean 78 109 Pulse Ox 99 98 Oxygen Delivery Method Nasal Cannula Oxygen Flow Rate (L/min) 3 Weight Weight: 126.3 kg Body Mass Index (BMI) 46.3 Physical Exam Narrative General: Alert, oriented, no apparent distress HEENT: Atraumatic, normocephalic Eyes: Anicteric, normal conjunctiva, extraocular movements intact, pupils equal Neck: Supple Respiratory: Somewhat diminished bilaterally but no overt wheezes or rhonchi, normal respiratory effort Cardiovascular: Regular rate and rhythm GI: Soft, nontender, nondistended Extremities: No significant pitting edema Musculoskeletal: Strength 5 out of 5 in right upper extremity, 5 out of 5 left upper extremity, 5 out of 5 right lower extremity, 5 out of 5 left lower extremity Neuro: No overt focal neurological deficits, cranial nerves II through XII intact, [id number] without significant difficulty bilaterally, did have a couple episodes of the tremor which appeared to be rhythmic tremor and she did have her fist clenched and some difficulty completely straightening elbow limited would resolve with no residual symptoms, no cogwheel rigidity or leadpipe rigidity Skin: No rashes appreciated Psych: Cooperative, tearful at times Results Lab / Micro Data 08/25/25 10:11 08/25/25 10:11 Labs: Laboratory Results - last 24 hr 08/25/25 10:11: WBC 4.7, RBC 4.25, Hgb 12.4, Hct 37.2, MCV 87.5, MCH 29.2, MCHC 33.3, RDW Std Deviation 40.3, RDW Coeff of Jocy 12.6, Plt Count 138 L, MPV 10.2, Immature Gran % (Auto) 0.200, Neut % (Auto) 79.5 H, Lymph % (Auto) 12.8 L, Door % (Auto) 7.5, Eos % (Auto) 0.0, Baso % (Auto) 0.0, Absolute Neuts (auto) 3.7, Absolute Lymphs (auto) 0.60 L, Nucleated RBC % 0, Sodium 128 L, Potassium 4.7, Chloride 87 L, Carbon Dioxide 22.3, Anion Gap 18 H, BUN 17, Creatinine 0.86, Estim Creat Clear Calc 91.88, Est GFR (MDRD) Non-Af 77, BUN/Creatinine Ratio 19.7, Glucose 745 H*, Calcium 9.6, Phosphorus 3.4, Magnesium 1.5, Total Bilirubin 0.37, AST 16, ALT 12, Alkaline Phosphatase 60, Total Protein 7.0, Albumin 3.8, Globulin 3.2, Albumin/Globulin Ratio 1.2, b-Hydroxybutyric mmol/L 2.0 H 08/25/25 10:27: Urine Color Yellow, Urine Clarity Clear, Urine pH 6.0, Ur Specific Tabor 1.010, Urine Protein Negative, Urine Glucose (UA) 1000 H, Urine Ketones 15 H, Urine Occult Blood Negative, Urine Nitrite Negative, Urine Bilirubin Negative, Urine Urobilinogen Normal, Ur Leukocyte Esterase Negative, Urine RBC 0 SEEN, Urine WBC 0-5 SEEN, Ur Squamous Epith Cells 0-5 SEEN, Urine Bacteria 0 SEEN, Urine Mucus 0 SEEN 08/25/25 11:50: POC Glucose > 500 H* 08/25/25 12:50: POC Glucose 463 H* ABG Data ABG results: ABG 08/25/25 11:14 Specimen Type NAKUL Sample Site Not entered VBG pH 7.47 H VBG pO2 50 H VBG HCO3 33 H VBG Total CO2 34 H VBG O2 Sat (Calc) 87 H VBG Base Excess 9 H POC Mix VBG pCO2 Pt Tmp 45.2 O2 Delivery Device Not entered Imaging Radiology Impression Chest X-Ray 08/25/25 10:14 IMPRESSION: Stable elevation of the right hemidiaphragm. Mild degree of vascular congestion. Reading Location: [id number] Assessment & Plan Assessment/Plan (1) Hyperglycemia due to diabetes mellitus: (2) Adult failure to thrive: PLAN: Plan # Hyperglycemia and ketosis in the setting of type 2 diabetes -Serum glucose in ED 745, anion gap 18 -Urine ketones present -Serum beta hydroxybutyrate 2 -Admit to intensive care unit -N.p.o. -Insulin drip started -Aggressive fluid hydration -Glucose checks and DKA protocol -BMP every 4H -Replace electrolytes per protocol -I's and O's -A1c in the a.m. -When serum glucose is <250 mg/dl, change IV fluids to D5%1/2NS at 150 ml/hr and continue insulin drip as per nomogram # Right upper extremity tremors -Patient has tremors that will come and go throughout the day and have been present for the past 1 to 2 weeks, last about 5 minutes at a time and are associated with no other neurological symptoms -She denies any inciting incident -CT head ordered and read pending however low suspicion for intracranial pathology at this time given completely normal neuroexam aside from the tremor appreciated with associated closing of her fist and difficulty with completely opening elbow -She is on paliperidone, certainly possible that she is having intermittent acute dystonia or some spectrum of EPS, her paliperidone is long-acting injectable so unable to stop this acutely -Will trial benztropine -Home meds for patient listed include nadolol, lorazepam, and primidone the latter which can help with tremor activity -Unclear patient's compliance however so unclear which of her home medications are taken consistently and which may not be -Will resume home medications -Pending response further workup may be indicated, patient refused MRI before 1 was even discussed -Can consider neuro consult if needed if unable to improve symptoms or identify etiology #Hx schizoaffective disorder - Gets monthly paliperidone injections so unable to hold this - Continue other home psychiatric medications - Has had significant stress recently and was tearful which did seem to exacerbate her symptoms - QTc 421 # Chronic hypoxic respiratory failure secondary to COPD -On 3 L home O2 chronically -Continue home inhalers - I/S #Chronic heart failure with preserved ejection fraction -Daily weights -I's and O's - Patient will be receiving IV fluids given the above, will monitor carefully for overload -Continue patients home medications #ABRAM - Was seen recently and referred for an updated sleep study -She reports multiple stressors in her life and was not able to make this appointment # Chronic left foot wound - Status post grafts last Monday and the Monday before per patient and her father - Denies being on any antibiotics or any active infection -Will consult wound care #Gout -Continue home allopurinol #GERD -Continue PPI #Hypertension - Holding lisinopril, blood pressure somewhat soft, nadolol with holding parameters #Morbid obesity -BMI documented as 46.3 kg/m? at time of admission -Complicates treatment, prognosis, outcomes -Recommend weight loss and lifestyle changes #DVT ppx: Antonio Swartz MD Time spent in the patient's overall evaluation, decision-making process, review of diagnostic data, adjustment of management, discussion with other providers, nursing and ancillary staff involved in patient's care documentation, 78 Minutes Charges/Coding Visit Charges Inpatient E&M: 64377 Init Hosp L3
[2025-08-25] MEDS: KCL 20MEQ in 0.9% NS 20 MEQ/1,000 ML IV.SOLN. 75 MEQ IV (15:38)
[2025-08-25] MEDS: KCL 20MEQ in D5.45NS 20 MEQ/1,000 ML IV.SOLN. 75 MEQ IV (17:10)
[2025-08-25] MEDS: HYDROcodone Bitartrate/Apap 5/325 Tablet PO (17:43)
[2025-08-25] MEDS: hydrOXYzine PAM 25 MG Capsule PO (18:41)
[2025-08-25 19:02] LABS: Magnesium 1.7 mg/dL (1.5-2.2)
[2025-08-25 19:20] LABS: Anion Gap 12 (5-15); Carbon Dioxide 28.3 mmol/L (21.0-32.0); Chloride 96 mmol/L (98-108); Potassium 3.9 mmol/L (3.3-5.1)
[2025-08-25] MEDS: Albuterol 2.5 MG/3 ML VIAL.NEB. INHALATION (19:35)
[2025-08-25] MEDS: Budesonide Respules 0.5 MG/2 ML AMPUL.NEB. INHALATION (19:36)
[2025-08-25] MEDS: Insulin Lispro 100 UNIT in 0.9% Normal Saline (100mL Bag) 99 ML CONT INF (20:06)
[2025-08-25] MEDS: 0.9% Saline Lock 10 ML Syringe IV ×2 (20:27→21:46)
[2025-08-25 22:23] LABS: Anion Gap 12 (5-15); Carbon Dioxide 27.6 mmol/L (21.0-32.0); Chloride 96 mmol/L (98-108); Magnesium 1.7 mg/dL (1.5-2.2); Potassium 3.7 mmol/L (3.3-5.1)
--- NOTE | 2025-08-25 22:49 | PCM.HOSP.N ---
Hospitalist Note AG closed x2, bicarb 27.6. 24hr insulin total is 101units. Reviewed home medication routine, nrsg noted that she does not understand how to take her insulin while at home. I ordered 35units glargine BID, lispro 10units AC, and lispro high dose SSI for ACHS. Consistent carb calorie controlled diet ordered. Give first dose glargine now, wait 1hr, then stop insulin drip.
[2025-08-25] MEDS: Insulin Glargine-YFGN 100 UNIT/ML Pen 35 UNIT SC (23:08)
[2025-08-26] VITALS (12 sets, daily range): BP systolic 107–152; BP diastolic 66–87; PULSE 64–79; RESP 14–20; TEMP 35.6–36.6; O2SAT 95–100; BMI 48.0
[2025-08-26] MEDS: HYDROcodone Bitartrate/Apap 5/325 Tablet PO ×3 (00:14→16:04)
[2025-08-26] MEDS: Budesonide Respules 0.5 MG/2 ML AMPUL.NEB. INHALATION ×2 (07:05→19:25)
[2025-08-26] MEDS: Albuterol 2.5 MG/3 ML VIAL.NEB. INHALATION ×2 (07:05→19:25)
[2025-08-26 07:48] LABS: Hematocrit 36.6 % (37-47); Hemoglobin 12.1 g/dL (12.0-15.0); Immature Granulocytes Count 0.020 X10^3/uL (0.0-0.0); Mean Corp Hgb Conc 33.1 g/dL (32-36); Mean Corpuscular Volume 88.2 fL (81-99); Mean Platelet Vol. 9.5 fl (6.2-12.0); NRBC Flagged by Analyzer 0 % (0-5); Platelet Count 129 K/mm3 (150-450); RBC Distribution Width CV 12.6 % (11.6-14.6); RBC Distribution Width SD 40.6 fl (35.1-43.9); Red Blood Count 4.15 M/mm3 (4.2-5.4); White Blood Count 4.6 K/mm3 (4.4-11.0)
[2025-08-26] MEDS: Tolterodine Tartrate 4 MG CAP.SA PO (07:52)
[2025-08-26] MEDS: buPROPion (XL) 150 MG TABLET.XL 450 MG PO (07:53)
--- NOTE | 2025-08-26 08:08 | CASEMGMT ---
Social Work SW created in [facility] a list of [facility] facilities in network w/pt's insurance, in pt's preferred geographic area, and complete w/quality and resource use data. SANDRA Tatum
[2025-08-26 08:14] LABS: Anion Gap 15 (5-15); BUN 14 mg/dL (4-19); BUN/Creat Ratio 20.7 RATIO (10-20); Calcium,Total 8.6 mg/dL (7.6-11.0); Carbon Dioxide 21.0 mmol/L (21.0-32.0); Chloride 93 mmol/L (98-108); Estimated Creatinine Clearance 118.77 ml/min (50-250); Glucose 386 mg/dL (70-99); Potassium 3.9 mmol/L (3.3-5.1)
--- NOTE | 2025-08-26 09:35 | PN.HOSP_ITS ---
Reason for Visit Chief Complaint: Generalized weakness and right upper extremity tremor Subjective Subjective Patient reporting that right arm tremor may be slightly better but is still present, she is having diarrhea which is chronic for her and takes Imodium at home, unchanged from her baseline, does report that she has been having nasal congestion for the past 10 days with brown and green nasal discharge and sinus tenderness which she had not divulge yesterday but reports there has been no improvement. No other new acute complaints Objective Data Objective Data Vital Signs: Vital Signs Temp Pulse Resp BP Pulse Ox O2 Del Method O2 Flow Rate 96.1 F L 71 20 H 152/81 H 96 Nasal Cannula 2 08/26/25 08:45 08/26/25 08:45 08/26/25 08:45 08/26/25 08:45 08/26/25 08:45 08/26/25 08:45 08/26/25 08:45 Oxygen Flow Rate (L/min) 2 Oxygen Delivery Method Nasal Cannula Weight: 131 kg Body Mass Index (BMI) 48.0 Intake & Output: Intake and Output for Last 24 Hours 08/24/25 08/25/25 08/26/25 23:59 23:59 23:59 Intake Total 1554.62 / 1554.62 530.05 / 530.05 Output Total 150 / 150 250 / 250 Balance 1404.62 / 1404.62 280.05 / 280.05 Lab / Micro Data 08/26/25 07:30 08/26/25 07:30 Labs: Laboratory Results - last 24 hr 08/25/25 10:11: WBC 4.7, RBC 4.25, Hgb 12.4, Hct 37.2, MCV 87.5, MCH 29.2, MCHC 33.3, RDW Std Deviation 40.3, RDW Coeff of Jocy 12.6, Plt Count 138 L, MPV 10.2, Immature Gran % (Auto) 0.200, Neut % (Auto) 79.5 H, Lymph % (Auto) 12.8 L, [place] % (Auto) 7.5, Eos % (Auto) 0.0, Baso % (Auto) 0.0, Absolute Neuts (auto) 3.7, A bsolute Lymphs (auto) 0.60 L, Nucleated RBC % 0, Sodium 128 L, Potassium 4.7, C hloride 87 L, Carbon Dioxide 22.3, Anion Gap 18 H, BUN 17, Creatinine 0.86, Estim Creat Clear Calc 91.88, Est GFR (MDRD) Non-Af 77, BUN/Creatinine Ratio 19.7, Glucose 745 H*, Calcium 9.6, Phosphorus 3.4, Magnesium 1.5, Total Bilirubin 0.37, AST 16, ALT 12, Alkaline Phosphatase 60, Total Protein 7.0, Albumin 3.8, Globulin 3.2, Albumin/Globulin Ratio 1.2, b-Hydroxybutyric mmol/L 2.0 H 08/25/25 10:27: Urine Color Yellow, Urine Clarity Clear, Urine pH 6.0, Ur Specific [place] 1.010, Urine Protein Negative, Urine Glucose (UA) 1000 H, Urine Ketones 15 H, Urine Occult Blood Negative, Urine Nitrite Negative, Urine Bilirubin Negative, Urine Urobilinogen Normal, Ur Leukocyte Esterase Negative, Urine RBC 0 SEEN, Urine WBC 0-5 SEEN, Ur Squamous Epith Cells 0-5 SEEN, Urine Bacteria 0 SEEN, Urine Mucus 0 SEEN 08/25/25 11:50: POC Glucose > 500 H* 08/25/25 12:50: POC Glucose 463 H* 08/25/25 14:05: POC Glucose 345 H 08/25/25 14:44: POC Glucose 271 H 08/25/25 16:01: POC Glucose 216 H 08/25/25 17:05: POC Glucose 203 H 08/25/25 18:01: POC Glucose 202 H 08/25/25 18:03: Sodium 136, Potassium 3.9, Chloride 96 L, Carbon Dioxide 28.3, Anion Gap 12, Phosphorus 2.4 L, Magnesium 1.7 08/25/25 19:02: POC Glucose 195 H 08/25/25 20:03: POC Glucose 190 H 08/25/25 21:06: POC Glucose 181 H 08/25/25 21:52: Sodium 135, Potassium 3.7, Chloride 96 L, Carbon Dioxide 27.6, Anion Gap 12, Phosphorus 2.5 L, Magnesium 1.7 08/25/25 21:59: POC Glucose 187 H 08/25/25 23:04: POC Glucose 211 H 08/26/25 00:06: POC Glucose 195 H 08/26/25 07:30: WBC 4.6, RBC 4.15 L, Hgb 12.1, Hct 36.6 L, MCV 88.2, MCH 29.2, MCHC 33.1, RDW Std Deviation 40.6, RDW Coeff of Jocy 12.6, Plt Count 129 L, MPV 9.5, Immature Gran % (Auto) 0.400, Neut % (Auto) 70.5 H, Lymph % (Auto) 21.0, [place] % (Auto) 7.9, Eos % (Auto) 0.0, Baso % (Auto) 0.2, Absolute Neuts (auto) 3.2, Absolute Lymphs (auto) 0.96, Nucleated RBC % 0, Sodium 128 L, Potassium 3.9, Chloride 93 L, Carbon Dioxide 21.0, Anion Gap 15, BUN 14, Creatinine 0.68 L , Estim Creat Clear Calc 118.77, Est GFR (MDRD) Non-Af 99, BUN/Creatinine Ratio 20.7 H, Glucose 386 H, Hemoglobin A1c 12.4 H, Calcium 8.6 08/26/25 07:43: POC Glucose 366 H Micro: Microbiology 08/26/25 06:40 Stool Clostridioides difficile (PCR) - Final ABG Data ABG results: ABG 08/25/25 11:14 Specimen Type NAKUL Sample Site Not entered VBG pH 7.47 H VBG pO2 50 H VBG HCO3 33 H VBG Total CO2 34 H VBG O2 Sat (Calc) 87 H VBG Base Excess 9 H POC Mix VBG pCO2 Pt Tmp 45.2 O2 Delivery Device Not entered Radiography Diagnostic Testing: Radiology Impression Chest X-Ray 08/25/25 10:14 IMPRESSION: Stable elevation of the right hemidiaphragm. Mild degree of vascular congestion. Reading Location: [id number] Brain CT 08/25/25 13:29 IMPRESSION: No acute abnormality is seen. Reading Location: [id number] Head/Neck CTA 08/25/25 13:29 IMPRESSION: No significant stenosis is seen. Reading Location: [id number] Physical Exam Narrative General: Resting comfortably but wakes up and answers questions appropriately HEENT: Atraumatic, normocephalic Eyes: Anicteric, normal conjunctiva, extraocular movements grossly intact Neck: Supple Respiratory: No overt wheezes or rhonchi, somewhat diminished at the bases but likely secondary to body habitus, normal respiratory effort Cardiovascular: Regular rate and rhythm GI: Soft, nontender, nondistended Extremities: No significant pitting peripheral edema Musculoskeletal: Moving all extremities Neuro: Patient had 1 episode of the tremors with hand clenching that was self- limited, otherwise no overt focal neurological deficits Skin: No rashes appreciated Psych: Cooperative Assessment & Plan Assessment/Plan (1) Hyperglycemia due to diabetes mellitus: (2) Adult failure to thrive: PLAN: Plan # Right upper extremity tremors -Patient has tremors that will come and go throughout the day and have been present for the past 1 to 2 weeks, last about 5 minutes at a time and are associated with no other neurological symptoms -She denies any inciting incident -CT head ordered and read pending however low suspicion for intracranial pathology at this time given completely normal neuroexam aside from the tremor appreciated with associated closing of her fist and difficulty with completely opening elbow -She is on paliperidone, certainly possible that she is having intermittent acute dystonia or some spectrum of EPS, her paliperidone is long-acting injectable so unable to stop this acutely -Will trial benztropine -Home meds for patient listed include nadolol, lorazepam, and primidone the latter which can help with tremor activity -Unclear patient's compliance however so unclear which of her home medications are taken consistently and which may not be -Will resume home medications -Pending response further workup may be indicated, patient refused MRI before 1 was even discussed -Can consider neuro consult if needed if unable to improve symptoms or identify etiology -08/26: Possibly slightly better after starting benztropine but really unclear how effective this has been, therefore still unclear what underlying etiology, will consult teleneurology for additional recommendations # Acute rhinosinusitis - Patient with symptoms that have now been present for 10 days with purulent nasal drainage and sinus tenderness indicating possible bacterial component - Given worsening over 10 days instead of improvement will start doxycycline 100 mg twice daily # Hyperglycemia and ketosis in the setting of type 2 diabetes?resolved -Serum glucose in ED 745, anion gap 18 -Urine ketones present -Serum beta hydroxybutyrate 2 -Admit to intensive care unit -N.p.o. -Insulin drip started -Aggressive fluid hydration -Glucose checks and DKA protocol -BMP every 4H -Replace electrolytes per protocol -I's and O's -A1c in the a.m. -When serum glucose is <250 mg/dl, change IV fluids to D5%1/2NS at 150 ml/hr and continue insulin drip as per nomogram -08/26: Resolved overnight. Patient started on 3 to 5 units twice daily of insulin with 10 units 3 times daily AC and sliding scale #Hx schizoaffective disorder - Gets monthly paliperidone injections so unable to hold this - Continue other home psychiatric medications - Has had significant stress recently and was tearful which did seem to exacerbate her symptoms - QTc 421 -08/26: Continuing current management # Chronic hypoxic respiratory failure secondary to COPD -On 3 L home O2 chronically -Continue home inhalers - I/S -08/26: Respiratory status stable, patient 96% on 2 L #Chronic heart failure with preserved ejection fraction -Daily weights -I's and O's - Patient will be receiving IV fluids given the above, will monitor carefully for overload -Continue patients home medications -08/26: Patient tolerated the IV fluids, does not appear overloaded Chronic medical problems and/or problems not being actively addressed during today's encounter: #ABRAM - Was seen recently and referred for an updated sleep study -She reports multiple stressors in her life and was not able to make this appointment # Chronic left foot wound - Status post grafts last Monday and the Monday before per patient and her father - Denies being on any antibiotics or any active infection -Will consult wound care #Gout -Continue home allopurinol #GERD -Continue PPI #Hypertension - Holding lisinopril, blood pressure somewhat soft, nadolol with holding parameters #Morbid obesity -BMI documented as 46.3 kg/m? at time of admission -Complicates treatment, prognosis, outcomes -Recommend weight loss and lifestyle changes #DVT ppx: Antonio Swartz MD Charges/Coding Visit Charges Inpatient E&M: 46968 Subs Hosp L2
--- NOTE | 2025-08-26 09:38 | CASEMGMT ---
Social Work SW met w/pt, reviewed prior level of function and anticipated discharge plan. PCP: Cristal Wolf Specialists: Pt sees a psychiatrist at [facility], and [facility], pt states medications get delivered and are prepackaged Insurance/Prescription Benefit: Pt has Medicaid Living Will/HPOA: Pt has not completed, may consider doing LW/POA. Pt not certain who she would put at POA for healthcare. She states has a son in a prison who has a guardian. SW asked pt to think about who she would want, SW can come back to complete documents w/pt should she choose to complete the documents on this hospital stay. Pt does have a father and 5 sisters. LNOK: Father, 5 sisters. Pt's father lives nearby, two sisters are local and three are out of town--one in [place], one in [place] and one in [place]. Living Arrangements/Prior level of function: Pt lives home alone in a single story apartment with a flat entrance. Pt's father cooks pt dinner in the evening. Pt states can cook but it makes her so tired that then she is too tired to eat. Pt has a CM, Richa Tam, through [facility]. Pt states has aide services through [facility] [employer]. Pt states she is to have aide services M-, 8am-4pm when discharged. Pt states can get to the bathroom on her own, aide does help her w/bathing, cleaning, cooking. Pt's medications come prepackaged. Pt states she has not been taking her insulin as she does not understand how to take it. Pt states has been diabetic for 10 years, but she does not understand the dosing. Pt asked to speak w/the track grinder operator Ana--SW let track grinder operator in ICU know and she will notify Ana to help w/education around this. Transportation: Pt states her father drives her where she needs to go. DME: Pt states has all diabetic supplies including a blood glucose monitor, pt has a wheeled walker, rollator, grab bars, shower chair and a med alert system. Pt has home O2 through [employer], pt states 3LPM cont at rest and 5LPM cont with exertion. Email sent to [employer] to verify. HHC/SNF: Pt has had [facility] in the past, has been to [facility] recently. Pt has aide services as outlined above, Richa Tam is pt's CM([phone], [phone]). SW did call Richa, message left. MH: As per pt, she has been diagnosed w/anxiety and depression, and schizoaffective disorder. Pt reports that her mental health at this time is stable, she states the services she has in place for medication and counseling are adequate, denies needing any additional referrals at this time. Substance use: Pt denies history of any substance abuse issues. PLAN: SW spoke w/pt about discharge plan. Pt is agreeable to SNF placement at this time. SW did provide to pt a list from [facility] of residential facilities in network w/pt's insurance, in pt's preferred geographic area, complete w/quality and resource use data. Pt did give SW three choices: 1. [facility]. [facility] and [facility]. [facility]. SW explained we will make referrals when appropriate. SW will continue to follow. SANDRA Tatum
[2025-08-26] MEDS: FLU VACCINE 2025-26(6MOS UP) 45 MCG/0.5 ML SYRINGE IM (09:42)
[2025-08-26] MEDS: Insulin Glargine-YFGN 100 UNIT/ML Pen 35 UNIT SC (09:43)
--- NOTE | 2025-08-26 10:36 | CASEMGMT ---
Social Work SW did start the PAS/RR for when pt goes to SNF, PASRR needed since pt will need a level of care. SW inquired w/pt regarding any antipsychotics she may take, as it is not showing on her med list. Pt states she gets an injection once every three months, and just had it Monday, called [facility]. SW also inquired w/pt if she has had a recent psychiatric stay, pt states no, not for 8 or 9 years. SW also asked pt about a seizure disorder. Pt states she does not have a seizure disorder, but does get the shakes, so is on primidone for this. All of this information reflected in the PAS/RR, pt will not trigger a further review. SANDRA Tatum
--- NOTE | 2025-08-26 11:56 | CHAPLAIN ---
Type of Pastoral Visit _x__ Initial Visit ___ Follow-up Visit ___ On-call Visit ___ General Patient Visit ___ Spiritual Assessment ___ Family Conference ___ Bereavement ___ Rapid Response ___ Code Blue ___ Other (describe below) Pastoral Care Referral From _x__ Patient ___ Family ___ Nurse ___ Physician ___ Commutator Repairer ___ Recruitment Specialist ___ Other (describe below) Sacrament/Intervention _x__ Active listening ___ Anointing ___ Judaism ___ Bereavement ___ Communion _x__ Rianna exploration ___ _x__ Life review _x__ Prayer ___ Reconciliation ___ Sacrament of Sick _x__ Supportive presence ___ Wedding ___ Other (describe below) Pastoral Comments Initially the patient reviews her health concerns and reason for admission; however patient also discusses her family situation and the heartaches of relationships; pt also inquires about the spiritual aspects of having these difficulties; time to listen, be supportive, and prayerful; pt requests a phone call to her tenriism be done as well
--- NOTE | 2025-08-26 12:58 | WOUNDNOTE ---
wound photo: left perera (wound veil not removed d/t recent application of skin substitute)
--- NOTE | 2025-08-26 14:44 | NS ---
Pt is familiar to this RD from [facility]; provided DM diet education per pt request and reviewed carb counting. Pt admits to drinking sweet iced tea lately and blood glucose in 300's; HgbA1C 12.4%this admission; was 8.3% 4 months ago. Pt admits to dietary noncompliance; ? medication compliance especially given significant increase in HgbA1C. Provided printed information on carb-counting (NCM) and HgbA1C. Instructed patient to drink unsweetened tea and/or use a sugar-substitute. Will follow-up with diet education as needed.
--- NOTE | 2025-08-26 16:18 | CASEMGMT ---
Social Work Pt's case assembler called SW back, Richa Tam. SHIVA updated her that plan will be for pt to go to SNF from here. Richa states that pt is calling 911 a lot, for multiple reasons--including not being able to get off the toilet, wanting a blanket, thinking her oxygen concentrator is not working, saying she is shaky. Richa states that the emergency responders state she is exhausting their resources. Though pt has 32-36 hours of aide services per week, but as soon as the aide leaves pt calls 911. Richa states when pt was in [facility], Richa tried to get pt into their AL. She was not able to walk to the dining merino however so they would not take her. Richa was working w/pt to try to get her an electric w/c but does not think pt has followed up. Richa does not think pt is suited anymore for community living. SHIVA will update Richa in regard to where SNF goes at d/c. (Pt had told SHIVA she does not want to return to [facility] and would not go to [facility]. SW will make referrals to pt's choices when appropriate.) SANDRA Tatum
--- NOTE | 2025-08-26 17:03 | PCM.CONS.GEN ---
Assessment & Plan Assessment/Plan (1) Type 2 diabetes mellitus with other skin ulcer: QUALIFIERS: Diabetes mellitus assisted insulin use: with intermediate project manager use Qualified Code(s): E11.622 - Type 2 diabetes mellitus with other skin ulcer; Z79.4 - prison (current) use of insulin PLAN: Patient was examined and evaluated. All fines were discussed with the patient. All questions were answered to the patient satisfaction. Exam of the full-thickness wound to the left leg was performed today at bedside. The patient's parent was also present. The wound base is granular with no concern for infection. Performed bedside debridement without incident using a #3 mm dermal curette. Also educated the patient on the importance of making sure she is taking her medicine and keeping her blood sugar between 100 to 150 mg/dL. It was educated the patient that her blood sugar was highly elevated especially at time of admission which she was understanding of. Excisional debridement down to including subcutaneous tissue with a number 3 mm dermal curette to the full-thickness wound to the proximal left leg done without incident. Predebridement measurement was eschar. Postdebridement measurement was 2.5 x 1.2 x 0.1 cm. The area was cleaned and patted dry. Aquacel Ag was applied to the full-thickness wound followed by dry sterile dressing and Silvestre wrap. Patient will have daily dressing changes per wound care nurse. WBC: 4.6 HbA1c: (04/28/25): 8.3 HbA1c: (08/26/25): 12.4 Glucose: 310 Medicine: On board, medical management Neuro: Consult pending PT/OT: On board From a podiatry standpoint patient can discharge home versus SNF per my perspective. Patient can follow-up in private office 1 week postdischarge for continued evaluation and care of the left lower extremity full-thickness wound. Instructions for dressing changes were placed and patient discharged. Podiatry will continue to follow patient while in house. Please reach out to Dr. Lewis of any question or concerns. (2) Non-pressure chronic ulcer of other part of left lower leg with fat layer exposed: HPI Consult Data Date of Consult: 08/26/25 HPI Narrative Reason for Consultation: Left leg full-thickness wound HPI Narrative: GARTH MACK, is a 59 F with a past medical history of COPD, CHF anemia, wears 3 L of oxygen at home. She presents via EMS with generalized weakness, stating that she has a right upper extremity tremor that locks up at times. 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 Patient states that she has been not keeping up with her insulin and was drinking sugary tea drinks. She also mitts that she has been having difficult tea take care of herself at home. Interview today at bedside the patient states that she is feeling much better, she admits that the tremors have improved to the right arm. Podiatry was consulted for full-thickness wound to left leg. 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 coli infection Schizophrenia Other specified peripheral vascular diseases Chronic painful diabetic polyneuropathy Edema of both lower extremities Venous insufficiency (chronic) (peripheral) Diabetes PTSD (post-traumatic stress disorder) Depression Schizo affective schizophrenia Hypersomnia, unspecified Diabetes Left ventricular aneurysm Essential hypertension Chest pain Diabetes mellitus type 2, uncontrolled, with complications Back pain Asthma Knee pain Migraines Fatigue Hemorrhoids COPD (chronic obstructive pulmonary disease) Arthritis Pain syndrome, chronic Bipolar disorder Migraines Obstructive sleep apnea Stasis dermatitis of both legs Venous insufficiency of both lower extremities Super obese Open wound of left lower extremity GERD (gastroesophageal reflux disease) Benign hypertension ADHD (attention deficit hyperactivity disorder) Home Medications ?Medication ?Instructions ?Recorded ?Last Taken ?Type bupropion HCl 300 mg 24 hr tablet, 450 mg PO DAILY mental health 03/05/17 08/24/25 History extended release albuterol sulfate 90 mcg/actuation 2 puff inhalation Q4H PRN Sob &/Or 05/29/18 08/24/25 History aerosol inhaler Wheezing fluticasone propionate 50 2 spray NASAL DAILY allergies 08/04/19 08/24/25 History mcg/actuation nasal spray,suspension aspirin 81 mg chewable tablet 81 mg PO DAILY@0800 heart health 07/17/20 08/24/25 Rx buspirone 10 mg tablet 20 mg PO TID mood 03/08/22 10/05/25 History cetirizine 10 mg tablet (Zyrtec) 10 mg PO DAILY allergies 01/25/22 08/24/25 History colchicine 0.6 mg tablet 0.6 mg PO DAILY gout 01/25/22 08/24/25 History guaifenesin 600 mg tablet, 1,200 mg PO BID PRN Cough 01/25/22 08/24/25 History extended release 12 hr (Mucinex) primidone 250 mg tablet 750 mg PO QHS seizures 01/25/22 08/24/25 History triamcinolone acetonide 0.1 % 1 applic topical TID PRN Rash 01/25/22 08/11/25 History topical cream fluticasone 500 mcg-salmeterol 50 1 inh inhalation BID breathing 05/02/22 08/24/25 History mcg/dose blistr powdr for inhalation omeprazole 40 mg capsule,delayed 40 mg PO DAILY gerd 05/02/22 08/24/25 History release ergocalciferol (vitamin D2) 1,250 50,000 unit PO QMONTH bone health 08/10/22 04/21/25 History mcg (50,000 unit) capsule (Vitamin D2) lactulose 10 gram/15 mL oral 60 ml PO BID PRN Constipation 08/10/22 04/20/25 History solution pregabalin 150 mg capsule 150 mg PO TID pain 08/10/22 08/24/25 History ondansetron 4 mg disintegrating 4 mg PO Q8H PRN Nausea 10/03/24 08/23/25 History tablet trazodone 150 mg tablet 150 mg PO QHS sleep 10/03/24 08/24/25 History albuterol sulfate 2.5 mg/3 mL 2.5 mg inhalation Q6H PRN 02/25/25 04/21/25 History (0.083 %) solution for nebulization shortness of breath or wheezing escitalopram oxalate 20 mg tablet 20 mg PO DAILY MENTAL HEALTH 03/01/25 08/24/25 History paliperidone palmitate 117 mg/0.75 117 mg IM Q30D 04/15/25 08/22/25 History mL intramuscular syringe (Invega Sustenna) acetaminophen 500 mg tablet 1,000 mg PO TID 04/17/25 08/24/25 History insulin glargine 100 unit/mL (3 82 unit subcut [facility] diabetes 04/17/25 04/20/25 History mL) subcutaneous pen (Lantus Solostar U-100 Insulin) insulin lispro 100 unit/mL See Rx Instructions subcut QA DM 04/17/25 04/21/25 History subcutaneous pen insulin lispro 100 unit/mL 1 sliding scale dose subcut 04/17/25 04/21/25 History subcutaneous pen (Humalog KwikPen USEASDIRECTD (U-100) Insulin) lidocaine 4 % topical patch 1 patch topical QDAY 04/17/25 08/24/25 History (Aspercreme (lidocaine)) lisinopril 10 mg tablet 5 mg PO BID blood pressure 04/17/25 08/24/25 History nadolol 80 mg tablet 40 mg PO BID high blood pressure 04/17/25 08/24/25 History allopurinol 100 mg tablet 100 mg PO DAILY 04/21/25 08/24/25 History insulin lispro 100 unit/mL See Protocol subcut ACHS #0 mL 04/23/25 Unknown Rx subcutaneous pen (Humalog KwikPen (U-100) Insulin) OXYGEN - Supplemental ([facility] hypoxia 08/25/25 Unknown History INFORMATIONAL USE ONLY) dicyclomine 20 mg tablet 20 mg PO TID 08/25/25 08/24/25 History hydrocodone 7.5 mg-acetaminophen 1 tab PO 4X/DAY PRN pain 08/25/25 08/24/25 History 325 mg tablet hydroxyzine pamoate 25 mg capsule 25 mg PO TID PRN 08/25/25 08/24/25 History lorazepam 1 mg tablet 1 mg PO BID 08/25/25 08/24/25 History miconazole nitrate 2 % topical 1 applic topical PRN 08/25/25 Unknown History cream montelukast 10 mg tablet 10 mg PO DAILY 08/25/25 08/24/25 History oxybutynin chloride 15 mg 15 mg PO DAILY 08/25/25 08/24/25 History tablet,extended release 24 hr Allergy/AdvReac Type Severity Reaction Status Date / Time meloxicam Allergy Severe Anaphylaxis Verified 08/25/25 10:01 vancomycin Allergy Severe BURNING Verified 08/25/25 10:01 RED RASH ON LEGGS amlodipine (From [facility]) Allergy Swelling Verified 08/25/25 10:01 cefazolin sodium (From Ancef) Allergy Hives Verified 08/25/25 10:01 fexofenadine (From Nia) Allergy Shortness Verified 08/25/25 10:01 of breath nitrofurantoin (From Allergy Hives Verified 08/25/25 10:01 Macrobid) Penicillins Allergy Hives Verified 08/25/25 10:01 sumatriptan (From Imitrex) Allergy Shortness Verified 08/25/25 10:01 of breath adhesive AdvReac BURNING Verified 08/25/25 10:01 amitriptyline (From Elavil) AdvReac Other Verified 08/25/25 10:01 clindamycin AdvReac Diarrhea Verified 08/25/25 10:01 ziprasidone (From Geodon) AdvReac NEEDS Verified 08/25/25 10:01 FOLLOW-UP Family History Father CVA (cerebral vascular accident) Heart disease Mother Heart disease Surgical History History of elbow surgery (~06/2020) History of arthroscopic knee surgery History of left heart catheterization (07/16/20) Kidney stone H/O hernia repair Hx of hysterectomy Hx of section Social History household members: family housing: house Smoking Status: Never smoker alcohol intake: never substance use type: does not use caffeine: Yes (occasionally) Physical Exam Narrative Vascular: DP and PT pulse are palpable to left lower extremity. CFT is brisk. Skin temp great is warm to warm from proximal ankles to distal digits of left lower extremity. No focal increase is appreciated. No erythema. Neurological: Light touch is intact. Patient does respond to painful stimuli. Dermatological: Full-thickness wound to the proximal left leg measuring 2.5 x 1.2 x 0.1 cm. Wound base is granular with no sign of infection. Negative probe to bone. Excisional debridement down to including subcutaneous tissue with a number 3 mm dermal curette to the full-thickness wound to the proximal left leg done without incident. Predebridement measurement was eschar. Postdebridement measurement was 2.5 x 1.2 x 0.1 cm. Musculoskeletal: No pain on palpation to the full-thickness wound. No pain with calf pressure. Const alert, oriented x3 and no apparent distress Lab / Micro Data 08/26/25 07:30 08/26/25 07:30 Labs: Laboratory Results - last 24 hr 08/25/25 14:44: POC Glucose 271 H 08/25/25 16:01: POC Glucose 216 H 08/25/25 17:05: POC Glucose 203 H 08/25/25 18:01: POC Glucose 202 H 08/25/25 18:03: Sodium 136, Potassium 3.9, Chloride 96 L, Carbon Dioxide 28.3, Anion Gap 12, Phosphorus 2.4 L, Magnesium 1.7 08/25/25 19:02: POC Glucose 195 H 08/25/25 20:03: POC Glucose 190 H 08/25/25 21:06: POC Glucose 181 H 08/25/25 21:52: Sodium 135, Potassium 3.7, Chloride 96 L, Carbon Dioxide 27.6, Anion Gap 12, Phosphorus 2.5 L, Magnesium 1.7 08/25/25 21:59: POC Glucose 187 H 08/25/25 23:04: POC Glucose 211 H 08/26/25 00:06: POC Glucose 195 H 08/26/25 07:30: WBC 4.6, RBC 4.15 L, Hgb 12.1, Hct 36.6 L, MCV 88.2, MCH 29.2, MCHC 33.1, RDW Std Deviation 40.6, RDW Coeff of Jocy 12.6, Plt Count 129 L, MPV 9.5, Immature Gran % (Auto) 0.400, Neut % (Auto) 70.5 H, Lymph % (Auto) 21.0, [place] % (Auto) 7.9, Eos % (Auto) 0.0, Baso % (Auto) 0.2, Absolute Neuts (auto) 3.2, Absolute Lymphs (auto) 0.96, Nucleated RBC % 0, Sodium 128 L, Potassium 3.9, Chloride 93 L, Carbon Dioxide 21.0, Anion Gap 15, BUN 14, Creatinine 0.68 L, Estim Creat Clear Calc 118.77, Est GFR (MDRD) Non-Af 99, BUN/Creatinine Ratio 20.7 H, Glucose 386 H, Hemoglobin A1c 12.4 H, Calcium 8.6 08/26/25 07:43: POC Glucose 366 H 08/26/25 11:21: POC Glucose 359 H 08/26/25 16:06: POC Glucose 310 H Micro: Microbiology 08/26/25 06:40 Stool Clostridioides difficile (PCR) - Final
[2025-08-26] MEDS: 0.9% Saline Lock 10 ML Syringe IV (21:23)
[2025-08-26] MEDS: Insulin Glargine-YFGN 100 UNIT/ML Pen 40 UNIT SC (21:35)
[2025-08-27 02:41] VITALS: BP 140/77; PULSE 86; RESP 20; TEMP 36.5; O2SAT 96
[2025-08-27 05:01] VITALS: BMI 47.9
[2025-08-27] MEDS: Albuterol 2.5 MG/3 ML VIAL.NEB. INHALATION ×2 (06:36→13:51)
[2025-08-27] MEDS: Budesonide Respules 0.5 MG/2 ML AMPUL.NEB. INHALATION (06:36)
[2025-08-27 06:38] VITALS: PULSE 79; RESP 20; O2SAT 96
[2025-08-27 06:46] LABS: Hematocrit 34.8 % (37-47); Hemoglobin 11.9 g/dL (12.0-15.0); Mean Corp Hgb Conc 34.2 g/dL (32-36); Mean Corpuscular Volume 85.5 fL (81-99); Mean Platelet Vol. 9.7 fl (6.2-12.0); Platelet Count 120 K/mm3 (150-450); RBC Distribution Width CV 12.6 % (11.6-14.6); RBC Distribution Width SD 39.3 fl (35.1-43.9); Red Blood Count 4.07 M/mm3 (4.2-5.4); White Blood Count 4.6 K/mm3 (4.4-11.0)
[2025-08-27 07:11] LABS: Anion Gap 13 (5-15); BUN 20 mg/dL (4-19); BUN/Creat Ratio 28.6 RATIO (10-20); Calcium,Total 8.6 mg/dL (7.6-11.0); Carbon Dioxide 25.3 mmol/L (21.0-32.0); Chloride 94 mmol/L (98-108); Estimated Creatinine Clearance 115.11 ml/min (50-250); Glucose 328 mg/dL (70-99); Potassium 4.0 mmol/L (3.3-5.1)
[2025-08-27 07:59] VITALS: BP 136/85; PULSE 73; RESP 16; TEMP 36.1; O2SAT 97
--- NOTE | 2025-08-27 08:17 | WOUNDNOTE ---
wound photo: left lower leg
[2025-08-27] MEDS: Tolterodine Tartrate 4 MG CAP.SA PO (09:55)
[2025-08-27] MEDS: Insulin Glargine-YFGN 100 UNIT/ML Pen 45 UNIT SC (09:56)
[2025-08-27] MEDS: buPROPion (XL) 150 MG TABLET.XL 450 MG PO (09:57)
[2025-08-27] MEDS: HYDROcodone Bitartrate/Apap 5/325 Tablet PO (10:06)
[2025-08-27] MEDS: FLUCONAZOLE 150 MG TABLET PO (11:16)
--- NOTE | 2025-08-27 11:19 | CASEMGMT ---
Addendum entered by Isamar Pabon 08/27/25 11:33: Pt would like mass referrals sent to all [facility] providers on her list. DCA notified. MADAN Key Original Note: Social Work- SW met with pt who reports that she wants to d/c home after doing well with therapy. No additional therapy recommended, but pt would like [facility]. Pt reports that she need to take responsibility for myself when SW brought up concerns from [facility] that pt is over-using emergency services. SHIVA guided pt through discussion of practically what taking responsibility would look like in every days tasks. Pt reports tremors have reduced significantly to one every 5 hrs. Pt reports that she has aides, meals on wheels, and family that can assist. Pt reports that she feels [facility] will assist pt in maintaining ability to ambulate and build additional strength while improving balance. Pt reports that she has an appointment today at 4:[address] [place] [address] Lewis for graft that she would like to attend. Pt would like to speak with hospitalist regarding discharge plans. SHIVA notified hospitalist. Hospitalist requesting diabetic education. SW notified nurse who reports that she has previously provided education and will plan to provide additional education regarding insulin. A list of [facility] providers including quality and resource use data and consistent with the patient?s preferred geographic region, medical needs, and insurance network were provided from the [employer] Guide. MADAN Key
--- NOTE | 2025-08-27 11:21 | CASEMGMT ---
Discharge Planning A list of?HH providers including quality and resource use data and consistent with the patient's preferred geographic region, medical needs, and insurance network was created in [employer].? This list was provided to the SW. Nat Gtz, Discharge Planning Asst
--- NOTE | 2025-08-27 11:47 | NEURO.CONS ---
Assessment and Plan: Neuro Assessment/Plan GARTH MACK is a 59 F with a past medical history of hyperglycemia being evaluated by Teleneurology for right upper extremity tremor that resolved after initiation of benztropine and glucose control. I was unable to appreciate the clinical manifestation of tremor however as per patient, it was high amplitude flailing type of movement that started 5 days ago acutely . 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 Radiologic findings associated with the syndrome include T1-weighted hyperintensities in striatum and globus pallidus with restricted diffusion on diffusion-weighted imaging and apparent diffusion coefficient mapping with lack of contrast enhancement . A striatal infarct may be seen rarely. Regardless,tremor resolved . No further recommendations from Neurology team . Glucose control as per primary team. Can continue benztropine . I doubt it was related to antipsychotic related side effects or acute dystonia. I personally attended this patient and spent a total time of 55 minutes evaluating this patient including clinical assessment, review of chart, medical history imaging, and determining appropriate treatment and workup. HPI Consult Data Date of Consult: 08/27/25 HPI Narrative HPI Narrative: As per HpI: [id number] female with a history of COPD on 3 L chronic home O2, heart failure with preserved ejection fraction, diabetes, BARAM, schizoaffective disorder, gout, GERD who presented to [facility] ED 08/25/2025 due to generalized weakness as well as right upper extremity tremor that locks up at times. She was in the ED yesterday and thought to have extrapyramidal symptoms from her medications. Patient's father who helps take care of her is having a difficult time and they are interested in possible placement. In the ED temp 98.5, heart rate 86, blood pressure 109/66 with respiratory rate 22 pulse ox 98% on 3 L nasal cannula. CBC with hemoglobin 12.4, white blood count 4.7, platelet count 138, CMP with a normal bicarb at 22 but an anion gap of 18 and glucose found to be 745, liver panel within normal limits. UA with 15 ketones in the thousand glucose. VBG obtained which showed a pH of 7.47, bicarb of 33 and a pCO2 of 45. Beta hydroxybutyrate 2. Patient started on insulin drip and given some fluids, there was concern she could get fluid overloaded so she was hydrated cautiously and hospitalist contacted for admission. Patient evaluated at bedside with father present. Reportedly for the past 1 to 2 weeks she has had a right upper extremity tremor that comes and goes and will last 5 to 10 minutes at a time, she notes rhythmic tremor and feels it is difficult to open her hand or to fully straighten her elbow and then will be fine for period of time before symptoms returned, denies any headache, no neck pain, no recent physical trauma, no weakness in upper extremity or paresthesias. Outside of these periods of tremor does not feel she has limitations in that arm and there is no pain in her arm or shoulder. No changes in vision. She does have some generalized weakness but her main concern is her right upper extremity tremor. Does note some chronic diarrhea but is being worked up outpatient for this this is not new, no new chest pain or shortness of breath. No nausea, no changes in urination. Did report she was unsure how she was post to take her insulin and then ran out of some of it so she has not taken any insulin. Does note significant stressors recently with her son no longer wanting to talk to her and does not want her to be his guardian anymore (he lives in a alf) and that she has been very traumatized and distressed by this. Denies history of any seizures no recent medication changes. 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 coli infection Schizophrenia Other specified peripheral vascular diseases Chronic painful diabetic polyneuropathy Edema of both lower extremities Venous insufficiency (chronic) (peripheral) Diabetes PTSD (post-traumatic stress disorder) Depression Schizo affective schizophrenia Hypersomnia, unspecified Diabetes Left ventricular aneurysm Essential hypertension Chest pain Diabetes mellitus type 2, uncontrolled, with complications Back pain Asthma Knee pain Migraines Fatigue Hemorrhoids COPD (chronic obstructive pulmonary disease) Arthritis Pain syndrome, chronic Bipolar disorder Migraines Obstructive sleep apnea Stasis dermatitis of both legs Venous insufficiency of both lower extremities Super obese Open wound of left lower extremity GERD (gastroesophageal reflux disease) Benign hypertension ADHD (attention deficit hyperactivity disorder) Home Medications ?Medication ?Instructions ?Recorded ?Last Taken ?Type bupropion HCl 300 mg 24 hr tablet, 450 mg PO DAILY mental health 03/05/17 08/24/25 History extended release albuterol sulfate 90 mcg/actuation 2 puff inhalation Q4H PRN Sob &/Or 05/29/18 08/24/25 History aerosol inhaler Wheezing fluticasone propionate 50 2 spray NASAL DAILY allergies 08/04/19 08/24/25 History mcg/actuation nasal spray,suspension aspirin 81 mg chewable tablet 81 mg PO DAILY@0800 heart health 07/17/20 08/24/25 Rx buspirone 10 mg tablet 20 mg PO TID mood 01/25/22 08/24/25 History cetirizine 10 mg tablet (Zyrtec) 10 mg PO DAILY allergies 01/25/22 08/24/25 History colchicine 0.6 mg tablet 0.6 mg PO DAILY gout 01/25/22 08/24/25 History guaifenesin 600 mg tablet, 1,200 mg PO BID PRN Cough 01/25/22 08/24/25 History extended release 12 hr (Mucinex) primidone 250 mg tablet 750 mg PO QHS seizures 01/25/22 08/24/25 History triamcinolone acetonide 0.1 % 1 applic topical TID PRN Rash 01/25/22 08/11/25 History topical cream fluticasone 500 mcg-salmeterol 50 1 inh inhalation BID breathing 05/02/22 08/24/25 History mcg/dose blistr powdr for inhalation omeprazole 40 mg capsule,delayed 40 mg PO DAILY gerd 05/02/22 08/24/25 History release ergocalciferol (vitamin D2) 1,250 50,000 unit PO QMONTH bone health 08/10/22 04/21/25 History mcg (50,000 unit) capsule (Vitamin D2) lactulose 10 gram/15 mL oral 60 ml PO BID PRN Constipation 08/10/22 04/20/25 History solution pregabalin 150 mg capsule 150 mg PO TID pain 08/10/22 08/24/25 History ondansetron 4 mg disintegrating 4 mg PO Q8H PRN Nausea 10/03/24 08/23/25 History tablet trazodone 150 mg tablet 150 mg PO QHS sleep 10/03/24 08/24/25 History albuterol sulfate 2.5 mg/3 mL 2.5 mg inhalation Q6H PRN 02/25/25 04/21/25 History (0.083 %) solution for nebulization shortness of breath or wheezing escitalopram oxalate 20 mg tablet 20 mg PO DAILY MENTAL HEALTH 03/01/25 08/24/25 History paliperidone palmitate 117 mg/0.75 117 mg IM Q30D 04/15/25 08/22/25 History mL intramuscular syringe (Invega Sustenna) acetaminophen 500 mg tablet 1,000 mg PO TID 04/17/25 08/24/25 History insulin glargine 100 unit/mL (3 82 unit subcut QHS diabetes 04/17/25 04/20/25 History mL) subcutaneous pen (Lantus Solostar U-100 Insulin) insulin lispro 100 unit/mL See Rx Instructions subcut QAC DM 04/17/25 04/21/25 History subcutaneous pen insulin lispro 100 unit/mL 1 sliding scale dose subcut 04/17/25 04/21/25 History subcutaneous pen (Humalog KwikPen USEASDIRECTD (U-100) Insulin) lidocaine 4 % topical patch 1 patch topical QDAY 04/17/25 08/24/25 History (Aspercreme (lidocaine)) lisinopril 10 mg tablet 5 mg PO BID blood pressure 04/17/25 08/24/25 History nadolol 80 mg tablet 40 mg PO BID high blood pressure 04/17/25 08/24/25 History allopurinol 100 mg tablet 100 mg PO DAILY 04/21/25 08/24/25 History insulin lispro 100 unit/mL See Protocol subcut ACHS #0 mL 04/23/25 Unknown Rx subcutaneous pen (Humalog KwikPen (U-100) Insulin) OXYGEN - Supplemental (H hypoxia 08/25/25 Unknown History INFORMATIONAL USE ONLY) dicyclomine 20 mg tablet 20 mg PO TID 08/25/25 08/24/25 History hydrocodone 7.5 mg-acetaminophen 1 tab PO 4X/DAY PRN pain 08/25/25 08/24/25 History 325 mg tablet hydroxyzine pamoate 25 mg capsule 25 mg PO TID PRN 08/25/25 08/24/25 History lorazepam 1 mg tablet 1 mg PO BID 08/25/25 08/24/25 History miconazole nitrate 2 % topical 1 applic topical PRN 08/25/25 Unknown History cream montelukast 10 mg tablet 10 mg PO DAILY 08/25/25 08/24/25 History oxybutynin chloride 15 mg 15 mg PO DAILY 08/25/25 08/24/25 History tablet,extended release 24 hr Allergy/AdvReac Type Severity Reaction Status Date / Time meloxicam Allergy Severe Anaphylaxis Verified 08/25/25 10:01 vancomycin Allergy Severe BURNING Verified 08/25/25 10:01 RED RASH ON LEGGS amlodipine (From Norvasc) Allergy Swelling Verified 08/25/25 10:01 cefazolin sodium (From Ancef) Allergy Hives Verified 08/25/25 10:01 fexofenadine (From Nia) Allergy Shortness Verified 08/25/25 10:01 of breath nitrofurantoin (From Allergy Hives Verified 08/25/25 10:01 Macrobid) Penicillins Allergy Hives Verified 08/25/25 10:01 sumatriptan (From Imitrex) Allergy Shortness Verified 08/25/25 10:01 of breath adhesive AdvReac BURNING Verified 08/25/25 10:01 amitriptyline (From Elavil) AdvReac Other Verified 08/25/25 10:01 clindamycin AdvReac Diarrhea Verified 08/25/25 10:01 ziprasidone (From Geodon) AdvReac NEEDS Verified 08/25/25 10:01 FOLLOW-UP Family History Father CVA (cerebral vascular accident) Heart disease Mother Heart disease Surgical History History of elbow surgery (~06/2020) History of arthroscopic knee surgery History of left heart catheterization (07/16/20) Kidney stone H/O hernia repair Hx of hysterectomy Hx of section Social History household members: family housing: house Smoking Status: Never smoker alcohol intake: never substance use type: does not use caffeine: Yes (occasionally) Vital Signs Vital Signs Vital Signs: 08/26/25 13:48 08/26/25 14:25 08/26/25 15:00 Temperature 96.6 F L Temperature Source Temporal Pulse Rate 79 Pulse Strength Respiratory Rate 17 Respiratory Effort Normal Non-Labored Respiratory Depth Normal Respiratory Pattern Normal Blood Pressure 135/81 H Blood Pressure Mean 99 Blood Pressure Source Monitor Blood Pressure Position Semi-Fowlers Blood Pressure Location Left Arm Pulse Ox 97 Oxygen Delivery Method Nasal Cannula Nasal Cannula Oxygen Flow Rate (L/min) 3 3 2 08/26/25 16:00 08/26/25 19:25 08/26/25 19:25 Temperature Temperature Source Pulse Rate 75 Pulse Strength Respiratory Rate 14 Respiratory Effort Respiratory Depth Respiratory Pattern Normal Blood Pressure Blood Pressure Mean Blood Pressure Source Blood Pressure Position Blood Pressure Location Pulse Ox 98 Oxygen Delivery Method Nasal Cannula Oxygen Flow Rate (L/min) 3 2 08/26/25 20:21 08/26/25 20:59 08/27/25 02:41 Temperature 97.9 F 97.7 F L Temperature Source Oral Oral Pulse Rate 76 86 Pulse Strength Respiratory Rate 18 20 H Respiratory Effort Normal Non-Labored Respiratory Depth Normal Respiratory Pattern Normal Blood Pressure 150/66 H 140/77 H Blood Pressure Mean 94 98 Blood Pressure Source Monitor Monitor Blood Pressure Position Semi-Fowlers Sitting Blood Pressure Location Left Arm Left Arm Pulse Ox 95 96 Oxygen Delivery Method Nasal Cannula Nasal Cannula Nasal Cannula Oxygen Flow Rate (L/min) 2 2 3 08/27/25 02:42 08/27/25 06:38 08/27/25 06:38 Temperature Temperature Source Pulse Rate 79 Pulse Strength Respiratory Rate 20 H Respiratory Effort Normal Non-Labored Respiratory Depth Normal Respiratory Pattern Normal Normal Blood Pressure Blood Pressure Mean Blood Pressure Source Blood Pressure Position Blood Pressure Location Pulse Ox 96 Oxygen Delivery Method Nasal Cannula Nasal Cannula Oxygen Flow Rate (L/min) 3 3 08/27/25 07:59 08/27/25 09:00 08/27/25 09:42 Temperature 97.0 F L Temperature Source Temporal Pulse Rate 73 Pulse Strength Weak (1+) Respiratory Rate 16 Respiratory Effort Normal Non-Labored Respiratory Depth Normal Respiratory Pattern Normal Blood Pressure 136/85 H Blood Pressure Mean 102 Blood Pressure Source Monitor Blood Pressure Position Semi-Fowlers Blood Pressure Location Left Forearm Pulse Ox 97 Oxygen Delivery Method Nasal Cannula Nasal Cannula Oxygen Flow Rate (L/min) 3 3 Weight Weight: 130.5 kg Body Mass Index (BMI) 47.9 EEG Results Procedure Details EEG Procedure Details: GARTH MACK is a 59 year old F with a past medical history of , who presents for evaluation of Electroencephalogram on DATE at TIME Physical Exam Neuro Neuro Narrative: -? General: Laying comfortably in bed; in no acute distress. -? HENT: Normal oropharynx and mucosa. Normal external appearance of ears and nose. Exophthalmos. -? Neck: Supple, no pain or tenderness -? CV:? No peripheral edema. -? Pulmonary:? Normal respiratory effort. -? Ext: No cyanosis, edema, or deformity -? Skin: No rash. Normal palpation of skin.? -? Musculoskeletal: full range of motion; no joint tenderness. Normal digits and nails by inspection. No clubbing. -? NEURO: -? Mental Status: The patient was alert and oriented to time, place, and person. Normal recent/remote memory, concentration, and general fund of knowledge. -? Language: speech is .? Naming, repetition, fluency, and comprehension intact. -? Cranial Nerves: PERRL mm/brisk. EOMI, visual hester full, no facial asymmetry, facial sensation intact, hearing intact, tongue midline, no evidence of atrophy or fibrillations. As performed by the nurse/LILY Sternocleidomastoid and trapezius were equally strong. Soft palate raises equally, no uvular deviations -? Motor: normal bulk, tone, and strength throughout. No pronator drift or satelliting. Upper and lower extremities equal bilaterally. R L : R L -? Tone: is normal and bulk is normal -? Coordination: No dysmetria on [id number], finger follow finger or [id number]. -? Lab / Micro Data 08/27/25 06:06 08/27/25 06:06 Labs: Laboratory Results - last 24 hr 08/26/25 16:06: POC Glucose 310 H 08/26/25 21:33: POC Glucose 314 H 08/27/25 06:06: WBC 4.6, RBC 4.07 L, Hgb 11.9 L, Hct 34.8 L, MCV 85.5, MCH 29.2, MCHC 34.2, RDW Std Deviation 39.3, RDW Coeff of Jocy 12.6, Plt Count 120 L, MPV 9.7, Sodium 133, Potassium 4.0, Chloride 94 L, Carbon Dioxide 25.3, Anion Gap 13, BUN 20 H, Creatinine 0.70, Estim Creat Clear Calc 115.11, Est GFR (MDRD) Non-Af 98, BUN/Creatinine Ratio 28.6 H, Glucose 328 H, Calcium 8.6 08/27/25 06:47: POC Glucose 323 H 08/27/25 11:14: POC Glucose 340 H Micro: Microbiology 08/26/25 06:40 Stool Clostridioides difficile (PCR) - Final Active Medications Active Medications Active Medications: Current Medications Generic Name Dose Route Start Last Admin Trade Name Freq PRN Reason Stop Dose Admin Acetaminophen 650 mg 08/25/25 15:01 08/27/25 10:06 Acetaminophen 325 Mg Tablet PO 650 mg Q6H PRN PRN Administration Pain 1-10 Or Fever >100.7 Hydrocodone Bitart/Acetaminophen 1 tablet 08/25/25 15:48 08/27/25 10:06 Hydrocodone Bitartrate/Apap 5/325 Tablet PO 1 tablet 4X/DAY PRN PRN Administration Pain Score 1-10 Albuterol Sulfate 2.5 mg 08/25/25 15:01 Albuterol 2.5 Mg/3 Ml Vial.Neb. INHALATION Q2H PRN PRN SOB &/OR WHEEZING Albuterol Sulfate 2.5 mg 08/25/25 15:20 08/27/25 06:36 Albuterol 2.5 Mg/3 Ml Vial.Neb. INHALATION 2.5 mg Q6HWA.RT PEGGY Administration Allopurinol 100 mg 08/26/25 10:00 08/27/25 09:58 Allopurinol 100 Mg Tablet PO 100 mg DAILY PEGGY Administration Aspirin 81 mg 08/26/25 08:00 08/27/25 09:54 Aspirin 81 Mg Tab.Chew PO 81 mg BREAKFAST PEGGY Administration Benztropine Mesylate 0.5 mg 08/25/25 16:00 08/27/25 09:54 Benztropine Mesylate 0.5 Mg Tablet PO 0.5 mg BID PEGGY Administration Budesonide 0.5 mg 08/25/25 15:20 08/27/25 06:36 Budesonide Respules 0.5 Mg/2 Ml Ampul.Neb. INHALATION 0.5 mg Q12H.RT PEGGY Administration Bupropion HCl 450 mg 08/26/25 10:00 08/27/25 09:57 Bupropion (Xl) 150 Mg Tablet.Xl PO 450 mg DAILY PEGGY Administration Buspirone HCl 20 mg 08/25/25 22:00 08/27/25 06:49 Buspirone 5 Mg Tablet PO 20 mg TID PEGGY Administration Colchicine 0.6 mg 08/26/25 10:00 08/27/25 09:55 Colchicine 0.6 Mg Tablet PO 0.6 mg DAILY PEGGY Administration Dicyclomine HCl 20 mg 08/25/25 22:00 08/27/25 06:47 Dicyclomine 10 Mg Capsule PO 20 mg TID PEGGY Administration Doxycycline Monohydrate 100 mg 08/26/25 11:05 08/27/25 09:55 Doxycycline 100 Mg Capsule PO 100 mg BID PEGGY Administration Enoxaparin Sodium 40 mg 08/25/25 22:00 08/27/25 09:57 Enoxaparin 40 Mg/0.4 Ml Syringe SC 40 mg BID PEGYG Administration Escitalopram Oxalate 20 mg 08/26/25 10:00 08/27/25 09:57 Escitalopram Oxalate 20 Mg Tablet PO 20 mg DAILY PEGGY Administration Glucagon 1 mg 08/25/25 10:57 Glucagon 1 Mg/Ml Syringe IM X1 PRN HYPOGLYCEMIA Protocol Guaifenesin 1,200 mg 08/26/25 11:00 08/27/25 09:57 Guaifenesin 1,200 Mg Tablet PO 1,200 mg BID PEGGY Administration Hydroxyzine Pamoate 25 mg 08/25/25 15:01 08/25/25 18:41 Hydroxyzine Mehnaz 25 Mg Capsule PO 25 mg TID PRN PRN Administration ANXIETY Dextrose 250 mls @ 0 mls/hr 08/25/25 10:57 Dextrose 10%-Water IV .Q0M PRN Hypoglycemia Protocol As Directed Sodium Chloride 250 mls @ 15 mls/hr 08/25/25 14:59 IV .[id number] PRN Saline Flush Sodium Chloride 250 mls @ 15 mls/hr 08/25/25 14:59 IV .[id number] PRN Additional IVPB Infusion Dextrose 250 mls @ 0 mls/hr 08/25/25 15:01 Dextrose 10%-Water IV .Q0M PRN HYPOGLYCEMIA Protocol As Directed Insulin Glargine 55 unit 08/27/25 22:00 Insulin Glargine-Yfgn 100 Unit/Ml Pen SC BID PEGGY Insulin Human Lispro 0 unit 08/26/25 07:00 08/27/25 11:16 Insulin Lispro 100 Unit/Ml Insuln.Pen SC 12 u ACHS PEGGY Administration Protocol Insulin Human Lispro 15 unit 08/27/25 07:00 08/27/25 11:16 Insulin Lispro 100 Unit/Ml Insuln.Pen SC 15 u TIDAC PEGGY Administration Loperamide HCl 2 mg 08/26/25 09:36 Loperamide 2 Mg Capsule PO Q4H PRN PRN Loose stool Loratadine 10 mg 08/26/25 10:00 08/27/25 09:54 Loratadine 10 Mg Tablet PO 10 mg DAILY PEGGY Administration Lorazepam 1 mg 08/25/25 22:00 08/27/25 09:54 Lorazepam 1 Mg Tablet PO 1 mg BID PEGGY Administration Melatonin 10 mg 08/25/25 15:01 Melatonin 10 Mg Tablet PO QHS PRN PRN INSOMNIA Nadolol 40 mg 08/25/25 22:00 08/27/25 09:55 Nadolol 40 Mg Tablet PO 40 mg BID PEGGY Administration Ondansetron HCl 4 mg 08/25/25 15:01 08/25/25 16:27 Ondansetron 4 Mg/2 Ml Vial IV 4 mg Q8H PRN PRN Administration NAUSEA/VOMITING Pantoprazole Sodium 40 mg 08/26/25 10:00 08/27/25 09:57 Pantoprazole Sodium 40 Mg Tablet PO 40 mg DAILY PEGGY Administration Pregabalin 150 mg 08/25/25 22:00 08/27/25 06:48 Pregabalin 75 Mg Capsule PO 150 mg TID PEGGY Administration Primidone 750 mg 08/25/25 22:00 08/26/25 21:21 Primidone 250 Mg Tablet PO 750 mg QHS PEGGY Administration Senna/Docusate Sodium 2 tablet 08/25/25 15:01 Senna/Docusate Sodium 1 Tablet PO BID PRN PRN Constipation Sodium Chloride 10 - 40 ml 08/25/25 14:59 08/26/25 21:23 0.9% Saline Lock 10 Ml Syringe IV 20 ml UD PRN Administration SALINE FLUSH Tolterodine Tartrate 4 mg 08/26/25 10:00 08/27/25 09:55 Tolterodine Tartrate 4 Mg Cap.Sa PO 4 mg DAILY PEGGY Administration Trazodone HCl 75 mg 08/25/25 22:00 08/26/25 21:21 Trazodone 50 Mg Tablet PO 75 mg QHS PEGGY Administration
--- NOTE | 2025-08-27 12:13 | CASEMGMT ---
Addendum entered by Nat Gtz 08/27/25 14:45: [facility], [facility], [facility] have all declined. SW updated. Nat Gtz DC Planning Asst. Original Note: Discharge Planning HH referral sent to [facility], [facility], and [facility]. Nat Gtz DC Planning Asst.
[2025-08-27 13:51] VITALS: PULSE 77; RESP 20
[2025-08-27 14:00] VITALS: BP 139/84; PULSE 79; RESP 18; TEMP 36.2; O2SAT 98
--- NOTE | 2025-08-27 14:24 | NS ---
RN, Christelle, contacted this RD because pt had questions about the diabetic diet. Pt had questions about ordering food when going out to eat. RD reminded pt to not consume sweet iced tea, but to consume unsweetened iced tea and/or use a sugar-substitute. RD encouraged pt to consume protein, vegetable, and a grain with each meal. Will follow-up with diet education as needed.
--- NOTE | 2025-08-27 14:27 | DCINST_ITS ---
Discharge Instructions DC O2, CPAP, BIPAP needs Home O2 Discharge instructions: Yes Type of respiratory needs?: Oxygen Oxygen frequency: At rest and With Ambulation Oxygen liters per minute during Ambulation: 5 Dressing / Incision Discharge Activity: - (Increase activity as tolerated) Follow Up Care Test Results: Test results from this visit will be discussed in further detail at your follow- up appointment, if applicable. Discharge Plan Admission Admit Date/Time: 08/25/25 14:12 Primary Reason for Your Visit: Right arm tremor, weakness Attending Provider: Jenni Swartz Primary Care Provider: Cristal Wolf Consulting Providers: Mandeep Lewis; Vishnu Sheets; Willie Ramirez; Gail Spence; Nikki Martinez; Fallon Ludwig; Alvin Flores; Manda Kaur; Tim Russell; Negrito Browning; Jimmy Bell; Cindy Dixon; Richa Mitchell; Dg Winters; Nohemi Bang; Silas Camara; Kwesi Yoo; Mychal Pretty; Aaron Mcknight; Heron Cruz i; Yesika Jorgensen; Yolanda Daily Instructions Patient Instructions: Diabetes How to Use an Insulin ..., High Blood Sugar (Hyperglycemia), Hypoglycemia (Low Blood Sugar) Additional Instructions / Restrictions: DISCHARGE INSTRUCTIONS PLEASE READ *Please take this with you to your next doctors appointment* - You will take the short acting insulin, lispro 20 units subcu, 3 times daily with meals (preferably 15 minutes before or immediately after a meal) and at bedtime -You will take long-acting insulin, insulin glargine, 50 units twice a day, once in the morning and once at bedtime - This means you will take insulin glargine 50 units in the morning, with breakfast you will take lispro 20 units, with lunch you will take lispro 20 units, with dinner you will take lispro 20 units and at bedtime you will take lispro 20 units, you will also take 50 units of insulin glargine at bedtime -Will be important to take your long-acting insulin at the same time every day -You will need to check your sugar before your meals and at bedtime, please write these down and take them with you to doctors appointments -If your blood sugar is low (80 or less) or you are having symptoms of hypoglycemia please call your primary physician for further instructions -If your blood sugar is persistently high and you cannot lower it (>350) please call your primary care physician for further instructions or if you have any symptoms of elevated blood sugar like confusion, rapid breathing or fast heartbeat or any other concerning symptoms please proceed to the nearest emergency department for evaluation. Additional diabetes information to be printed with your discharge packet -Please follow-up with endocrinology upon discharge. You will be referred to Dr. Joaquin Sandra with endocrinology for close monitoring and management of your blood sugars, please call upon discharge to schedule an appointment to establish care - You will be discharged on benztropine twice daily for tremors, it is possible that your tremors were associated with your high blood glucose as well but given you noticed improvement also with initiation of this medication it will be continued, please follow-up with your outpatient providers - You will be discharged on doxycycline for your sinus infection, you will take a dose tonight and then twice daily for 3 more days -Please call your primary care provider's office upon discharge to schedule a hospital follow up within 1 week. -For any concerning signs or symptoms please call 911 or proceed to the nearest emergency department Discharge Orders/Prescriptions Prescriptions: New benztropine 0.5 mg Tablet 0.5 mg PO BID 30 Days Qty: 60 0RF doxycycline monohydrate 100 mg Capsule 100 mg PO BID 3 Days Qty: 7 0RF Continued omeprazole 40 mg capsule,delayed release(DR/EC) 40 mg PO DAILY pregabalin 150 mg capsule 150 mg PO TID ergocalciferol (vitamin D2) [Vitamin D2] 1,250 mcg (50,000 unit) capsule 50,000 unit PO QMONTH acetaminophen 500 mg tablet 1,000 mg PO TID lidocaine [Aspercreme (lidocaine)] 4 % adhesive patch,medicated 1 patch topical QDAY Rx Instructions: right hip Invega Sustenna 117 mg/0.75 mL syringe 117 mg IM Q30D bupropion HCl 300 MG tablet extended release 24 hr 450 mg PO DAILY Patient Comments: DEPRESSION albuterol sulfate 1 INHALER inhaler 2 puff INHALATION Q4H PRN (Reason: Sob &/Or Wheezing) fluticasone propionate 1 SPRAY spray,suspension 2 spray NASAL DAILY aspirin 81 MG tablet,chewable 81 mg PO DAILY@0800 0RF cetirizine [Zyrtec] 10 mg Tablet 10 mg PO DAILY triamcinolone acetonide 0.1 % Cream 1 applic TOPICAL TID PRN (Reason: Rash) primidone 250 mg Tablet 750 mg PO QHS buspirone 10 mg Tablet 20 mg PO TID colchicine 0.6 mg Tablet 0.6 mg PO DAILY guaifenesin [Mucinex] 600 mg Tablet Extended Release 12hr 1,200 mg PO BID PRN (Reason: Cough) fluticasone propion-salmeterol 500-50 mcg/dose blister with device 1 inh INHALATION BID lactulose 10 gram/15 mL solution 60 ml PO BID PRN (Reason: Constipation) ondansetron 4 MG tablet 4 mg PO Q8H PRN (Reason: Nausea) trazodone 150 mg tablet 150 mg PO QHS Patient Comments: pt states she takes 1/2tab lisinopril 10 mg tablet 5 mg PO BID escitalopram oxalate 20 mg tablet 20 mg PO DAILY albuterol sulfate 2.5 mg /3 mL (0.083 %) solution for nebulization 2.5 mg inhalation Q6H PRN (Reason: shortness of breath or wheezing) allopurinol 100 mg tablet 100 mg PO DAILY oxybutynin chloride 15 mg tablet extended release 24hr 15 mg PO DAILY miconazole nitrate 2 % cream 1 applic topical PRN dicyclomine 20 mg tablet 20 mg PO TID montelukast 10 mg tablet 10 mg PO DAILY lorazepam 1 mg tablet 1 mg PO BID hydroxyzine pamoate 25 mg capsule 25 mg PO TID PRN hydrocodone-acetaminophen 7.5-325 mg tablet 1 tab PO 4X/DAY PRN OXYGEN - Supplemental ([facility] INFORMATIONAL USE ONLY) Patient Comments: home oxygen through [employer]. Verified 3L @ rest and 5L with exertion via NC-per CM pervious admissions note nadolol 80 mg tablet 40 mg PO BID Changed insulin lispro 100 unit/mL insulin pen 20 unit subcut ACHS 30 Days Qty: 15 0RF Rx Instructions: Max daily insulin lispro 60 units insulin glargine 100 unit/mL (3 mL) insulin pen 50 unit SUBCUT BID Qty: 15 0RF Rx Instructions: Max daily glargine 100units Held insulin lispro [Humalog KwikPen Insulin] 100 unit/mL insulin pen 1 sliding scale dose subcut USEASDIRECTD Hold Instructions: Resume on 09/03/25. Please follow-up with your primary physician for further instructions on titration Rx Instructions: 180-200=2u 201-250=4u 251-300=6u 301-350=8u 351-400=10u 401-450=12u >451 notify Discontinued insulin lispro [Humalog KwikPen Insulin] 100 unit/mL Insulin Pen See Protocol subcut ACHS Qty: 0 0RF Protocol: 3. Sliding Scale Insulin Med Dosing Condition: 150-189 mg/dl = 1 unit Condition: 190-229 mg/dl = 2 units Condition: 230-269 mg/dl = 3 units Condition: 270-309 mg/dl = 4 units Condition: 310-349 mg/dl = 5 units Condition: 350-399 mg/dl = 6 units Condition: 400-449 mg/dl = 7 units Condition: Greater than 449 call physician Protocol Text: - Use for Total Daily Dose of Insulin 37-55 units - Obsese, infected, or steroid patients MEDIUM DOSING ALGORITHIM Referrals / Follow Up: Cristal Wolf MD [Primary Care Provider, Internal Medicine] - Within 1 Week Joaquin Sandra MD [Med Staff - Courtesy Staff, Endocrinology] - Within 2 Weeks Referral Note: -Please follow-up with endocrinology upon discharge. Please call their office to schedule an appointment to establish care upon discharge Disposition Disposition (needs filled in before D/C Order can be placed): Home Health Service
--- NOTE | 2025-08-27 14:29 | PCM.DC.SUM ---
Providers Date of Admission: 08/25/25 Date of Discharge: 08/27/25 Primary Care Physician: Dr. Cristal Wolf MD Consultations 08/25/25 15:01 Consult: Onc/Wound/assistant professor of geography Routine Comment: Reason for Consult:: reports grafts and non healing wound to LLE 08/26/25 10:58 Neurology [Consult: Tele-Neurology] Routine Consulting Provider: [facility] Reason for Consult: RUE tremors EMERGENT Consult: No MD Notified: Yes Date Notified: 08/26/25 Time Notified: 11:31 Method of Notification: Answering Service Method of Consult:: Telemedicine Nursing Unit Staff Notify [facility] of Tele-Neurology Consult: Yes 08/26/25 11:37 Consult: Podiatry Routine Consulting Provider: Mandeep Lewis Reason for Consult: left perera wound EMERGENT Consult: No MD Notified: Yes Date Notified: 08/26/25 Time Notified: 11:37 Method of Notification: Text Reason For Visit: HYPERGLYCEMIA AND KETOSIS, RUE tremor Diagnosis Discharge Diagnosis (1) Type 2 diabetes mellitus with other skin ulcer: Status: Acute Code(s): E11.622 - Type 2 diabetes mellitus with other skin ulcer; L98.499 - Non-pressure chronic ulcer of skin of other sites with unspecified severity Qualifiers: Diabetes mellitus keno terminal operator insulin use: with nursing home use Qualified Code(s): E11.622 - Type 2 diabetes mellitus with other skin ulcer; Z79.4 - residential (current) use of insulin (2) Non-pressure chronic ulcer of other part of left lower leg with fat layer exposed: Status: Resolved Code(s): L97.822 - Non-pressure chronic ulcer of other part of left lower leg with fat layer exposed Plan # Right upper extremity tremors # Acute rhinosinusitis # Hyperglycemia and ketosis in the setting of type 2 diabetes?resolved #Hx schizoaffective disorder # Chronic hypoxic respiratory failure secondary to COPD #Chronic heart failure with preserved ejection fraction #ABRAM # Chronic left foot wound #Gout #GERD #Hypertension #Morbid obesity Medications at Discharge Home Medications bupropion HCl 300 mg 24 hr tablet, extended release 450 mg PO DAILY mental health 03/05/17 albuterol sulfate 90 mcg/actuation aerosol inhaler 2 puff inhalation Q4H PRN Sob &/Or Wheezing 05/29/18 fluticasone propionate 50 mcg/actuation nasal spray,suspension 2 spray NASAL DAILY allergies 08/04/19 aspirin 81 mg chewable tablet 81 mg PO DAILY@0800 heart health 07/17/20 buspirone 10 mg tablet 20 mg PO TID mood 01/25/22 cetirizine 10 mg tablet (Zyrtec) 10 mg PO DAILY allergies 01/25/22 colchicine 0.6 mg tablet 0.6 mg PO DAILY gout 01/25/22 guaifenesin 600 mg tablet, extended release 12 hr (Mucinex) 1,200 mg PO BID PRN Cough 01/25/22 primidone 250 mg tablet 750 mg PO QHS seizures 01/25/22 triamcinolone acetonide 0.1 % topical cream 1 applic topical TID PRN Rash 01/25/22 fluticasone 500 mcg-salmeterol 50 mcg/dose blistr powdr for inhalation 1 inh inhalation BID breathing 05/02/22 omeprazole 40 mg capsule,delayed release 40 mg PO DAILY gerd 05/02/22 ergocalciferol (vitamin D2) 1,250 mcg (50,000 unit) capsule (Vitamin D2) 50,000 unit PO QMONTH bone health 08/10/22 lactulose 10 gram/15 mL oral solution 60 ml PO BID PRN Constipation 08/10/22 pregabalin 150 mg capsule 150 mg PO TID pain 08/10/22 ondansetron 4 mg disintegrating tablet 4 mg PO Q8H PRN Nausea 10/03/24 trazodone 150 mg tablet 150 mg PO QHS sleep 10/03/24 albuterol sulfate 2.5 mg/3 mL (0.083 %) solution for nebulization 2.5 mg inhalation Q6H PRN shortness of breath or wheezing 02/25/25 escitalopram oxalate 20 mg tablet 20 mg PO DAILY MENTAL HEALTH 03/01/25 paliperidone palmitate 117 mg/0.75 mL intramuscular syringe (Invega Sustenna) 117 mg IM Q30D 04/15/25 acetaminophen 500 mg tablet 1,000 mg PO TID 04/17/25 insulin lispro 100 unit/mL subcutaneous pen (Humalog KwikPen (U-100) Insulin) 1 sliding scale dose subcut USEASDIRECTD 04/17/25 Held on 08/27/25. Instructions: Resume on 09/03/25. Please follow-up with your primary physician for further instructions on titration lidocaine 4 % topical patch (Aspercreme (lidocaine)) 1 patch topical QDAY 04/17/25 lisinopril 10 mg tablet 5 mg PO BID blood pressure 04/17/25 nadolol 80 mg tablet 40 mg PO BID high blood pressure 04/17/25 allopurinol 100 mg tablet 100 mg PO DAILY 04/21/25 OXYGEN - Supplemental ([facility] INFORMATIONAL USE ONLY) hypoxia 08/25/25 dicyclomine 20 mg tablet 20 mg PO TID 08/25/25 hydrocodone 7.5 mg-acetaminophen 325 mg tablet 1 tab PO 4X/DAY PRN pain 08/25/25 hydroxyzine pamoate 25 mg capsule 25 mg PO TID PRN 08/25/25 lorazepam 1 mg tablet 1 mg PO BID 08/25/25 miconazole nitrate 2 % topical cream 1 applic topical PRN 08/25/25 montelukast 10 mg tablet 10 mg PO DAILY 08/25/25 oxybutynin chloride 15 mg tablet,extended release 24 hr 15 mg PO DAILY 08/25/25 benztropine 0.5 mg tablet 0.5 mg PO BID 30 days #60 tabs 08/27/25 doxycycline monohydrate 100 mg capsule 100 mg PO BID 3 days #7 caps 08/27/25 insulin glargine 100 unit/mL (3 mL) subcutaneous pen 50 unit (0.5 mL) subcut BID diabetes #15 mL 08/27/25 insulin lispro 100 unit/mL subcutaneous pen 20 unit (0.2 mL) subcut ACHS DM 30 days #15 mL 08/27/25 Hospital Course Summary of Care Provided Minutes Spent on Discharge: 40 Hospital Course: GARTH MACK, is a 59-year-old female with a history of COPD on 3 L chronic home O2, heart failure with preserved ejection fraction, diabetes, ABRAM, schizoaffective disorder, gout, GERD who presented to [facility] ED 08/25/2025 due to generalized weakness as well as right upper extremity tremor. She had been seen in the ED the day before for the arm tremor and it was felt to be EPS from her medications and she was discharged home in stable condition. She represented to the ED the following day with her father because he is having difficulty caring for her at home and they were interested in placement. In the ED however she was found have a glucose of 745 with a gap of 18 with bicarb normal at 22, her pH was 7.47 with a bicarb of 33 and a pCO2 of 45 but she was found to have ketones in her urine and a beta hydroxybutyrate of 2 and was therefore started on insulin drip with IV fluids and hospitalist contacted for admission. Patient's glucose improved and gap closed and she was transitioned to subcu insulin without incident, regarding her right upper extremity tremor she got a CT head with no acute process, she said the tremor would happen randomly over the past few weeks but was frequent and would last 5 minutes at a time in which her arm would tremor and her hand would seize up and it has been making it difficult for her to get around. Broad differential considered. She is on paliperidone, certainly possible that she is having intermittent acute dystonia or some spectrum of EPS, her paliperidone is long-acting injectable so unable to stop this acutely. Home meds for patient listed include nadolol, lorazepam, and primidone the latter which can help with tremor activity but unclear patient's compliance however so unclear which of her home medications are taken consistently and which may not be so home meds were resumed and she also was started on benztropine for concern for possible EPS, patient reported slight improvement but still frequent symptoms so neuro consulted, patient adamantly refused MRI. On 08/27 she was still reporting the tremor though said it was decreased in frequency. She did have appointment with podiatry in the evening and wanted to go to that and asked to be discharged. Neuro did evaluate her in the meantime but despite reporting continued tremor shortly before she divulged to the neurologist that her tremor has resolved. They suspected it was possibly hyperglycemia induced hemiballism hemichorea with lower suspicion for antipsychotic but cannot rule this out so recommended she could be continued on benztropine and insulin. It is still unclear what etiology of her tremor was, different timelines were given to different providers and it seemed that patient often had this when she was directly interacting with someone, it also seemed worse/more frequent when she was discussing upsetting topics (discussing son and ED.) Certainly could be a psychosomatic or conversion type reaction given increase stress recently, patient had still been reporting the tremor on day of discharge but decided she wanted to be discharged and then subsequently said she had no further tremor and felt well and wanted to go home and no longer wanted to be placed. Unclear if there could have been a component of secondary gain for placement as that is what she came in for initially and the symptoms suddenly resolved when she decided she wanted to go home. Broad differential remains but certainly cannot rule out supratentorial at this time. That being said certainly could be from her antipsychotic or elevated glucose so we will continue benztropine and continue patient on insulin. On day of discharge patient reports feeling well and that she wants to be discharged to go to the podiatry office for her wound graft. She has no new or acute complaints and reports that the tremor is completely gone. No increased shortness of breath or cough. Discharge instructions as follows: - You will take the short acting insulin, lispro 20 units subcu, 3 times daily with meals (preferably 15 minutes before or immediately after a meal) and at bedtime -You will take long-acting insulin, insulin glargine, 50 units twice a day, once in the morning and once at bedtime - This means you will take insulin glargine 50 units in the morning, with breakfast you will take lispro 20 units, with lunch you will take lispro 20 units, with dinner you will take lispro 20 units and at bedtime you will take lispro 20 units, you will also take 50 units of insulin glargine at bedtime -Will be important to take your long-acting insulin at the same time every day -You will need to check your sugar before your meals and at bedtime, please write these down and take them with you to doctors appointments -If your blood sugar is low (80 or less) or you are having symptoms of hypoglycemia please call your primary physician for further instructions -If your blood sugar is persistently high and you cannot lower it (>350) please call your primary care physician for further instructions or if you have any symptoms of elevated blood sugar like confusion, rapid breathing or fast heartbeat or any other concerning symptoms please proceed to the nearest emergency department for evaluation. Additional diabetes information to be printed with your discharge packet -Please follow-up with endocrinology upon discharge. You will be referred to Dr. Joaquin Sandra with endocrinology for close monitoring and management of your blood sugars, please call upon discharge to schedule an appointment to establish care - You will be discharged on benztropine twice daily for tremors, it is possible that your tremors were associated with your high blood glucose as well but given you noticed improvement also with initiation of this medication it will be continued, please follow-up with your outpatient providers - You will be discharged on doxycycline for your sinus infection, you will take a dose tonight and then twice daily for 3 more days -Please call your primary care provider's office upon discharge to schedule a hospital follow up within 1 week. -For any concerning signs or symptoms please call 911 or proceed to the nearest emergency department Physical Exam Narrative General: Resting comfortably but wakes up and answers questions appropriately HEENT: Atraumatic, normocephalic Eyes: Anicteric, normal conjunctiva, extraocular movements grossly intact Neck: Supple Respiratory: No overt wheezes or rhonchi, somewhat diminished at the bases but likely secondary to body habitus, normal respiratory effort Cardiovascular: Regular rate and rhythm GI: Soft, nontender, nondistended Extremities: No significant pitting peripheral edema Musculoskeletal: Moving all extremities Neuro: no overt focal neurological deficits Skin: No rashes appreciated Psych: Cooperative Weight / BMI Weight Weight: 130.5 kg Body Mass Index (BMI) 47.9 ABG / Lab / Microbiology Data 08/27/25 06:06 08/27/25 06:06 Laboratory: Laboratory Results - last 24 hr 08/26/25 21:33: POC Glucose 314 H 08/27/25 06:06: WBC 4.6, RBC 4.07 L, Hgb 11.9 L, Hct 34.8 L, MCV 85.5, MCH 29.2, MCHC 34.2, RDW Std Deviation 39.3, RDW Coeff of Jocy 12.6, Plt Count 120 L, MPV 9.7, Sodium 133, Potassium 4.0, Chloride 94 L, Carbon Dioxide 25.3, Anion Gap 13, BUN 20 H, Creatinine 0.70, Estim Creat Clear Calc 115.11, Est GFR (MDRD) Non-Af 98, BUN/Creatinine Ratio 28.6 H, Glucose 328 H, Calcium 8.6 08/27/25 06:47: POC Glucose 323 H 08/27/25 11:14: POC Glucose 340 H Microbiology: Microbiology 08/26/25 06:40 Stool Clostridioides difficile (PCR) - Final D/C Instructions DC O2, CPAP, BIPAP Needs Home O2 Discharge instructions: Yes Type of respiratory needs?: Oxygen Oxygen frequency: At rest and With Ambulation Oxygen liters per minute during Ambulation: 5 DC home with Oxygen: Yes Home O2 MD Review: I have reviewed the oxygen testing, and the patient qualifies for home oxygen equipment and portability. The patient is mobile in the home and the community. Meaningful Use Info Meaningful Use Meaningful Use Diagnoses (Choose all that apply): None applicable Discharge Plan Admission Admit Date/Time: 08/25/25 14:12 Primary Reason for Your Visit: Right arm tremor, weakness Attending Provider: Jenni Swartz Primary Care Provider: Cristal Wolf Consulting Providers: Mandeep Lewis; Vishnu Sheets; Willie Ramirez; Gail Spence; Nikki Martinez; Fallon Ludwig; Alvin Flores; Manda Kaur; Tim Russell; Negrito Browning; Jimmy Bell; Cindy Dixon; Richa Mitchell; Dg Winters; Nohemi Bang; Silas Camara; Kwesi Yoo; Mychal Pretty; Aaron Mcknight; Heron Aj; Yesika Jorgensen; Yolanda Daily Instructions Patient Instructions: Diabetes How to Use an Insulin ..., High Blood Sugar (Hyperglycemia), Hypoglycemia (Low Blood Sugar) Additional Instructions / Restrictions: DISCHARGE INSTRUCTIONS PLEASE READ *Please take this with you to your next doctors appointment* - You will take the short acting insulin, lispro 20 units subcu, 3 times daily with meals (preferably 15 minutes before or immediately after a meal) and at bedtime -You will take long-acting insulin, insulin glargine, 50 units twice a day, once in the morning and once at bedtime - This means you will take insulin glargine 50 units in the morning, with breakfast you will take lispro 20 units, with lunch you will take lispro 20 units, with dinner you will take lispro 20 units and at bedtime you will take lispro 20 units, you will also take 50 units of insulin glargine at bedtime -Will be important to take your long-acting insulin at the same time every day -You will need to check your sugar before your meals and at bedtime, please write these down and take them with you to doctors appointments -If your blood sugar is low (80 or less) or you are having symptoms of hypoglycemia please call your primary physician for further instructions -If your blood sugar is persistently high and you cannot lower it (>350) please call your primary care physician for further instructions or if you have any symptoms of elevated blood sugar like confusion, rapid breathing or fast heartbeat or any other concerning symptoms please proceed to the nearest emergency department for evaluation. Additional diabetes information to be printed with your discharge packet -Please follow-up with endocrinology upon discharge. You will be referred to Dr. Joaquin Sandra with endocrinology for close monitoring and management of your blood sugars, please call upon discharge to schedule an appointment to establish care - You will be discharged on benztropine twice daily for tremors, it is possible that your tremors were associated with your high blood glucose as well but given you noticed improvement also with initiation of this medication it will be continued, please follow-up with your outpatient providers - You will be discharged on doxycycline for your sinus infection, you will take a dose tonight and then twice daily for 3 more days -Please call your primary care provider's office upon discharge to schedule a hospital follow up within 1 week. -For any concerning signs or symptoms please call 911 or proceed to the nearest emergency department Discharge Orders/Prescriptions Prescriptions: New benztropine 0.5 mg Tablet 0.5 mg PO BID 30 Days Qty: 60 0RF doxycycline monohydrate 100 mg Capsule 100 mg PO BID 3 Days Qty: 7 0RF Continued omeprazole 40 mg capsule,delayed release(DR/EC) 40 mg PO DAILY pregabalin 150 mg capsule 150 mg PO TID ergocalciferol (vitamin D2) [Vitamin D2] 1,250 mcg (50,000 unit) capsule 50,000 unit PO QMONTH acetaminophen 500 mg tablet 1,000 mg PO TID lidocaine [Aspercreme (lidocaine)] 4 % adhesive patch,medicated 1 patch topical QDAY Rx Instructions: right hip Invega Sustenna 117 mg/0.75 mL syringe 117 mg IM Q30D bupropion HCl 300 MG tablet extended release 24 hr 450 mg PO DAILY Patient Comments: DEPRESSION albuterol sulfate 1 INHALER inhaler 2 puff INHALATION Q4H PRN (Reason: Sob &/Or Wheezing) fluticasone propionate 1 SPRAY spray,suspension 2 spray NASAL DAILY aspirin 81 MG tablet,chewable 81 mg PO DAILY@0800 0RF cetirizine [Zyrtec] 10 mg Tablet 10 mg PO DAILY triamcinolone acetonide 0.1 % Cream 1 applic TOPICAL TID PRN (Reason: Rash) primidone 250 mg Tablet 750 mg PO QHS buspirone 10 mg Tablet 20 mg PO TID colchicine 0.6 mg Tablet 0.6 mg PO DAILY guaifenesin [Mucinex] 600 mg Tablet Extended Release 12hr 1,200 mg PO BID PRN (Reason: Cough) fluticasone propion-salmeterol 500-50 mcg/dose blister with device 1 inh INHALATION BID lactulose 10 gram/15 mL solution 60 ml PO BID PRN (Reason: Constipation) ondansetron 4 MG tablet 4 mg PO Q8H PRN (Reason: Nausea) trazodone 150 mg tablet 150 mg PO QHS Patient Comments: pt states she takes 1/2tab lisinopril 10 mg tablet 5 mg PO BID escitalopram oxalate 20 mg tablet 20 mg PO DAILY albuterol sulfate 2.5 mg /3 mL (0.083 %) solution for nebulization 2.5 mg inhalation Q6H PRN (Reason: shortness of breath or wheezing) allopurinol 100 mg tablet 100 mg PO DAILY oxybutynin chloride 15 mg tablet extended release 24hr 15 mg PO DAILY miconazole nitrate 2 % cream 1 applic topical PRN dicyclomine 20 mg tablet 20 mg PO TID montelukast 10 mg tablet 10 mg PO DAILY lorazepam 1 mg tablet 1 mg PO BID hydroxyzine pamoate 25 mg capsule 25 mg PO TID PRN hydrocodone-acetaminophen 7.5-325 mg tablet 1 tab PO 4X/DAY PRN OXYGEN - Supplemental ([facility] INFORMATIONAL USE ONLY) Patient Comments: home oxygen through [employer]. Verified 3L @ rest and 5L with exertion via NC-per CM pervious admissions note nadolol 80 mg tablet 40 mg PO BID Changed insulin lispro 100 unit/mL insulin pen 20 unit subcut ACHS 30 Days Qty: 15 0RF Rx Instructions: Max daily insulin lispro 60 units insulin glargine 100 unit/mL (3 mL) insulin pen 50 unit SUBCUT BID Qty: 15 0RF Rx Instructions: Max daily glargine 100units Held insulin lispro [Humalog KwikPen Insulin] 100 unit/mL insulin pen 1 sliding scale dose subcut USEASDIRECTD Hold Instructions: Resume on 09/03/25. Please follow-up with your primary physician for further instructions on titration Rx Instructions: 180-200=2u 201-250=4u 251-300=6u 301-350=8u 351-400=10u 401-450=12u >451 notify Discontinued insulin lispro [Humalog KwikPen Insulin] 100 unit/mL Insulin Pen See Protocol subcut ACHS Qty: 0 0RF Protocol: 3. Sliding Scale Insulin Med Dosing Condition: 150-189 mg/dl = 1 unit Condition: 190-229 mg/dl = 2 units Condition: 230-269 mg/dl = 3 units Condition: 270-309 mg/dl = 4 units Condition: 310-349 mg/dl = 5 units Condition: 350-399 mg/dl = 6 units Condition: 400-449 mg/dl = 7 units Condition: Greater than 449 call physician Protocol Text: - Use for Total Daily Dose of Insulin 37-55 units - Obsese, infected, or steroid patients MEDIUM DOSING ALGORITHIM Referrals / Follow Up: Cristal Wolf MD [Primary Care Provider, Internal Medicine] - Within 1 Week Joaquin Sandra MD [Med Staff - Courtesy Staff, Endocrinology] - Within 2 Weeks Referral Note: -Please follow-up with endocrinology upon discharge. Please call their office to schedule an appointment to establish care upon discharge Disposition Disposition (needs filled in before D/C Order can be placed): Home Health Service Charges/Coding Visit Charges Inpatient E&M: 96754 Disch Hosp >30min
--- NOTE | 2025-08-27 14:57 | CASEMGMT ---
Social Work- SW met with pt to advise that [facility] referrals sent. No accepting agencies at this time. Pt advised that she can still d/c while awaiting determinations. Pt reports no other needs at this time. SW called Richa Tam, [facility], to advise of pt discharge. SW also faxed discharge to [facility]. MADAN Key
--- NOTE | 2025-08-27 15:25 | PHA.DC.MR.R ---
Pharmacy [place] Med Reconciliation Pharmacy Service has performed discharge medication reconciliation for this patient. Medication education papers prepared, patient discharged when counseling was attempted. Medications reviewed. The patient's discharge medication list was reviewed for discrepancies and discrepancies were resolved. Medications at Discharge Home Medications bupropion HCl 300 mg 24 hr tablet, extended release 450 mg PO DAILY mental health 03/05/17 albuterol sulfate 90 mcg/actuation aerosol inhaler 2 puff inhalation Q4H PRN Sob &/Or Wheezing 05/29/18 fluticasone propionate 50 mcg/actuation nasal spray,suspension 2 spray NASAL DAILY allergies 08/04/19 aspirin 81 mg chewable tablet 81 mg PO DAILY@0800 heart health 07/17/20 buspirone 10 mg tablet 20 mg PO TID mood 01/25/22 cetirizine 10 mg tablet (Zyrtec) 10 mg PO DAILY allergies 01/25/22 colchicine 0.6 mg tablet 0.6 mg PO DAILY gout 01/25/22 guaifenesin 600 mg tablet, extended release 12 hr (Mucinex) 1,200 mg PO BID PRN Cough 01/25/22 primidone 250 mg tablet 750 mg PO QHS seizures 01/25/22 triamcinolone acetonide 0.1 % topical cream 1 applic topical TID PRN Rash 01/25/22 fluticasone 500 mcg-salmeterol 50 mcg/dose blistr powdr for inhalation 1 inh inhalation BID breathing 05/02/22 omeprazole 40 mg capsule,delayed release 40 mg PO DAILY gerd 05/02/22 ergocalciferol (vitamin D2) 1,250 mcg (50,000 unit) capsule (Vitamin D2) 50,000 unit PO QMONT bone health 08/10/22 lactulose 10 gram/15 mL oral solution 60 ml PO BID PRN Constipation 08/10/22 pregabalin 150 mg capsule 150 mg PO TID pain 08/10/22 ondansetron 4 mg disintegrating tablet 4 mg PO Q8H PRN Nausea 10/03/24 trazodone 150 mg tablet 150 mg PO QHS sleep 10/03/24 albuterol sulfate 2.5 mg/3 mL (0.083 %) solution for nebulization 2.5 mg inhalation Q6H PRN shortness of breath or wheezing 02/25/25 escitalopram oxalate 20 mg tablet 20 mg PO DAILY MENTAL HEALTH 03/01/25 paliperidone palmitate 117 mg/0.75 mL intramuscular syringe (Invega Sustenna) 117 mg IM Q30D 04/15/25 acetaminophen 500 mg tablet 1,000 mg PO TID 04/17/25 insulin lispro 100 unit/mL subcutaneous pen (Humalog KwikPen (U-100) Insulin) 1 sliding scale dose subcut USEASDIRECTD 04/17/25 Held on 08/27/25. Instructions: Resume on 09/03/25. Please follow-up with your primary physician for further instructions on titration lidocaine 4 % topical patch (Aspercreme (lidocaine)) 1 patch topical QDAY 04/17/25 lisinopril 10 mg tablet 5 mg PO BID blood pressure 04/17/25 nadolol 80 mg tablet 40 mg PO BID high blood pressure 04/17/25 allopurinol 100 mg tablet 100 mg PO DAILY 04/21/25 OXYGEN - Supplemental ([facility] INFORMATIONAL USE ONLY) hypoxia 08/25/25 dicyclomine 20 mg tablet 20 mg PO TID 08/25/25 hydrocodone 7.5 mg-acetaminophen 325 mg tablet 1 tab PO 4X/DAY PRN pain 08/25/25 hydroxyzine pamoate 25 mg capsule 25 mg PO TID PRN 08/25/25 lorazepam 1 mg tablet 1 mg PO BID 08/25/25 miconazole nitrate 2 % topical cream 1 applic topical PRN 08/25/25 montelukast 10 mg tablet 10 mg PO DAILY 08/25/25 oxybutynin chloride 15 mg tablet,extended release 24 hr 15 mg PO DAILY 08/25/25 benztropine 0.5 mg tablet 0.5 mg PO BID 30 days #60 tabs 08/27/25 doxycycline monohydrate 100 mg capsule 100 mg PO BID 3 days #7 caps 08/27/25 insulin glargine 100 unit/mL (3 mL) subcutaneous pen 50 unit (0.5 mL) subcut BID diabetes #15 mL 08/27/25 insulin lispro 100 unit/mL subcutaneous pen 20 unit (0.2 mL) subcut ACHS DM 30 days #15 mL 08/27/25
== END 2025-08-27 15:16 | disposition home health service (06) | DRG 420 ==
LOC: ED 11:32 → ICU 14:18 → MS3 08-26 18:46
PROVIDERS: Admitting Provider Internal Medicine; Emergency Provider Emergency Medicine; PCP Internal Medicine; Visit Provider Internal Medicine
DX: E11.10 Type 2 diabetes mellitus with ketoacidosis without coma (principal); E88.89 Other specified metabolic disorders; F25.9 Schizoaffective disorder, unspecified; E11.65 Type 2 diabetes mellitus with hyperglycemia; E87.1 Hypo-osmolality and hyponatremia; J01.90 Acute sinusitis, unspecified; R62.7 Adult failure to thrive; I11.0 Hypertensive heart disease with heart failure; J44.9 Chronic obstructive pulmonary disease, unspecified; E66.01 Morbid (severe) obesity due to excess calories; J96.11 Chronic respiratory failure with hypoxia; E11.622 Type 2 diabetes mellitus with other skin ulcer; E11.42 Type 2 diabetes mellitus with diabetic polyneuropathy; I50.32 Chronic diastolic (congestive) heart failure; M10.9 Gout, unspecified; G47.33 Obstructive sleep apnea (adult) (pediatric); Z79.4 Long term (current) use of insulin; K21.9 Gastro-esophageal reflux disease without esophagitis; E11.51 Type 2 diabetes mellitus with diabetic peripheral angiopathy without gangrene; F31.9 Bipolar disorder, unspecified; K52.9 Noninfective gastroenteritis and colitis, unspecified; L97.822 Non-pressure chronic ulcer of other part of left lower leg with fat layer exposed; I25.2 Old myocardial infarction; Z68.42 Body mass index [BMI] 45.0-49.9, adult; G24.01 Drug induced subacute dyskinesia; Z79.82 Long term (current) use of aspirin; F43.10 Post-traumatic stress disorder, unspecified; Z90.710 Acquired absence of both cervix and uterus; G89.29 Other chronic pain; R93.89 Abnormal findings on diagnostic imaging of other specified body structures; Z60.2 Problems related to living alone; Z99.81 Dependence on supplemental oxygen; Z99.89 Dependence on other enabling machines and devices
CPT/HCPCS: 36415; 70450; 70496; 70498; 71045; 80048; 80051; 80053; 81001; 82010; 82803; 82962; 83036; 83735; 84100; 85025; 85027; 87493; 93005; 94640; 94668; 94762; 97162; 97166; 99284; 99285; P9612; Q9967; A4216; J2405

== ENCOUNTER 2025-09-18 16:35 | Emergency (ER) | payer MEDICAID, SELFPAY ==
[2025-09-18 16:39] VITALS: BP 187/94; PULSE 97; RESP 18; TEMP 36.8; O2SAT 98; BMI 51.3
--- NOTE | 2025-09-18 17:38 | EX.ED.DYSGE1 ---
HPI History of Present Illness Chief Complaint: Hypertension Detail of Chief Complaint: Low blood sugar. Informant: patient and parent Onset/Context/Timing Onset: Days Context: Gradual Onset Timing: Intermittent Current Severity: Mild Maximum Severity: Mild Narrative Narrative: 59-year-old female history of insulin-dependent diabetes. Has been doing low blood sugars the last several days. No loss conscious. Blood sugars in the 50s. Recently she was admitted to the hospital for hyperglycemia. Believes she may have been on insulin drip at that time. She has had some recent mild diarrhea. She is on Augmentin for sinus infection which she is been on for the last 2 days. Denies any fever. 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 coli infection Schizophrenia Other specified peripheral vascular diseases Chronic painful diabetic polyneuropathy Edema of both lower extremities Venous insufficiency (chronic) (peripheral) Diabetes PTSD (post-traumatic stress disorder) Depression Schizo affective schizophrenia Hypersomnia, unspecified Diabetes Left ventricular aneurysm Essential hypertension Chest pain Diabetes mellitus type 2, uncontrolled, with complications Back pain Asthma Knee pain Migraines Fatigue Hemorrhoids COPD (chronic obstructive pulmonary disease) Arthritis Pain syndrome, chronic Bipolar disorder Migraines Obstructive sleep apnea Stasis dermatitis of both legs Venous insufficiency of both lower extremities Super obese Open wound of left lower extremity GERD (gastroesophageal reflux disease) Benign hypertension ADHD (attention deficit hyperactivity disorder) Home Medications ?Medication ?Instructions ?Recorded ?Last Taken ?Type bupropion HCl 300 mg 24 hr tablet, 450 mg PO DAILY mental health 03/05/17 08/24/25 History extended release albuterol sulfate 90 mcg/actuation 2 puff inhalation Q4H PRN Sob &/Or 05/29/18 08/24/25 History aerosol inhaler Wheezing fluticasone propionate 50 2 spray NASAL DAILY allergies 08/04/19 08/24/25 History mcg/actuation nasal spray,suspension aspirin 81 mg chewable tablet 81 mg PO DAILY@0800 heart health 07/17/20 08/24/25 Rx buspirone 10 mg tablet 20 mg PO TID mood 01/25/22 08/24/25 History cetirizine 10 mg tablet (Zyrtec) 10 mg PO DAILY allergies 01/25/22 08/24/25 History colchicine 0.6 mg tablet 0.6 mg PO DAILY gout 01/25/22 08/24/25 History guaifenesin 600 mg tablet, 1,200 mg PO BID PRN Cough 01/25/22 08/24/25 History extended release 12 hr (Mucinex) primidone 250 mg tablet 750 mg PO QHS seizures 01/25/22 08/24/25 History triamcinolone acetonide 0.1 % 1 applic topical TID PRN Rash 01/25/22 08/11/25 History topical cream fluticasone 500 mcg-salmeterol 50 1 inh inhalation BID breathing 05/02/22 08/24/25 History mcg/dose blistr powdr for inhalation omeprazole 40 mg capsule,delayed 40 mg PO DAILY gerd 05/02/22 08/24/25 History release ergocalciferol (vitamin D2) 1,250 50,000 unit PO QMONT bone health 08/10/22 04/21/25 History mcg (50,000 unit) capsule (Vitamin D2) lactulose 10 gram/15 mL oral 60 ml PO BID PRN Constipation 08/10/22 04/20/25 History solution pregabalin 150 mg capsule 150 mg PO TID pain 08/10/22 08/24/25 History ondansetron 4 mg disintegrating 4 mg PO Q8H PRN Nausea 10/03/24 08/23/25 History tablet trazodone 150 mg tablet 150 mg PO QHS sleep 10/03/24 08/24/25 History albuterol sulfate 2.5 mg/3 mL 2.5 mg inhalation Q6H PRN 02/25/25 04/21/25 History (0.083 %) solution for nebulization shortness of breath or wheezing escitalopram oxalate 20 mg tablet 20 mg PO DAILY MENTAL HEALTH 03/01/25 08/24/25 History paliperidone palmitate 117 mg/0.75 117 mg IM Q30D 04/15/25 08/22/25 History mL intramuscular syringe (Invega Sustenna) acetaminophen 500 mg tablet 1,000 mg PO TID 04/17/25 08/24/25 History insulin lispro 100 unit/mL 1 sliding scale dose subcut 04/17/25 04/21/25 History subcutaneous pen (Humalog KwikPen USEASDIRECTD (U-100) Insulin) Held on 08/27/25. Instructions: Resume on 09/03/25. Please follow-up with your primary physician for further instructions on titration lidocaine 4 % topical patch 1 patch topical QDAY 04/17/25 08/24/25 History (Aspercreme (lidocaine)) lisinopril 10 mg tablet 5 mg PO BID blood pressure 04/17/25 08/24/25 History nadolol 80 mg tablet 40 mg PO BID high blood pressure 04/17/25 08/24/25 History allopurinol 100 mg tablet 100 mg PO DAILY 04/21/25 08/24/25 History OXYGEN - Supplemental ([facility] hypoxia 08/25/25 Unknown History INFORMATIONAL USE ONLY) dicyclomine 20 mg tablet 20 mg PO TID 08/25/25 08/24/25 History hydrocodone 7.5 mg-acetaminophen 1 tab PO 4X/DAY PRN pain 08/25/25 08/24/25 History 325 mg tablet hydroxyzine pamoate 25 mg capsule 25 mg PO TID PRN 08/25/25 08/24/25 History lorazepam 1 mg tablet 1 mg PO BID 08/25/25 08/24/25 History miconazole nitrate 2 % topical 1 applic topical PRN 08/25/25 Unknown History cream montelukast 10 mg tablet 10 mg PO DAILY 08/25/25 08/24/25 History oxybutynin chloride 15 mg 15 mg PO DAILY 08/25/25 08/24/25 History tablet,extended release 24 hr benztropine 0.5 mg tablet 0.5 mg PO BID 30 days #60 tabs 08/27/25 Unknown Rx doxycycline monohydrate 100 mg 100 mg PO BID 3 days #7 caps 08/27/25 Unknown Rx capsule insulin glargine 100 unit/mL (3 50 unit (0.5 mL) subcut BID 08/27/25 Unknown Rx mL) subcutaneous pen diabetes #15 mL insulin lispro 100 unit/mL 20 unit (0.2 mL) subcut ACHS DM 30 08/27/25 Unknown Rx subcutaneous pen days #15 mL Allergy/AdvReac Type Severity Reaction Status Date / Time meloxicam Allergy Severe Anaphylaxis Verified 08/25/25 10:01 vancomycin Allergy Severe BURNING Verified 08/25/25 10:01 RED RASH ON LEGGS amlodipine (From Norvasc) Allergy Swelling Verified 08/25/25 10:01 cefazolin sodium (From Ancef) Allergy Hives Verified 08/25/25 10:01 fexofenadine (From Nia) Allergy Shortness Verified 08/25/25 10:01 of breath nitrofurantoin (From Allergy Hives Verified 08/25/25 10:01 Macrobid) Penicillins Allergy Hives Verified 08/25/25 10:01 sumatriptan (From Imitrex) Allergy Shortness Verified 08/25/25 10:01 of breath adhesive AdvReac BURNING Verified 08/25/25 10:01 amitriptyline (From Elavil) AdvReac Other Verified 08/25/25 10:01 clindamycin AdvReac Diarrhea Verified 08/25/25 10:01 ziprasidone (From Geodon) AdvReac NEEDS Verified 08/25/25 10:01 FOLLOW-UP Family History Father CVA (cerebral vascular accident) Heart disease Mother Heart disease Surgical History History of elbow surgery (~06/2020) History of arthroscopic knee surgery History of left heart catheterization (07/16/20) Kidney stone H/O hernia repair Hx of hysterectomy Hx of section Social History household members: family housing: house Smoking Status: Never smoker alcohol intake: never substance use type: does not use caffeine: Yes (occasionally) ROS ROS ED ROS Narrative Diarrhea. recent sinusitis. Constitutional Constitutional ED: Denies chills or fever(s) Eyes Eyes: Denies blurry vision ENT ENT ED: Reports rhinorrhea; Denies ear pain Cardiovascular Cardiovascular: Denies chest pain Respiratory/Chest Respiratory/Chest: Denies cough Gastrointestinal Gastrointestinal: Reports diarrhea; Denies abdominal pain Genitourinary Genitourinary ED: Denies dysuria or hematuria Musculoskeletal Musculoskeletal: Denies back pain Integumentary Denies abscess or Abrasions Neurologic Neurologic: Denies headache(s) Psychiatric Psychiatric: Denies anxiety or depression Endocrine Endocrinology: Denies cold intolerance or heat intolerance Hematologic/Lymphatic Hematologic/Lymphatic: Reports none Allergic/Immunologic Allergic/Immunologic ED: Denies mouth swelling, tongue swelling or urticaria EXAM Physical Exam Narrative Exam Narrative: 59-year-old female seen upright in bed. Vital signs stable afebrile. Patient does not look septic toxic or any distress. Family member at bedside. H EENT exam pupils round react light. Moist mutes membranes. Neck nontender no JVD. Lungs clear to auscultation. Heart regular rhythm rate about 90 no murmur. Chest wall ribs nontender. Abdomen soft nontender. No peritoneal signs. Moving all 4 extremities. She has a chronic wound on her left leg that is currently being treated. Does not appear to be acutely infected. Dorsi plantarflexion intact. 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 Back nontender. Neurologically she is awake alert. Answer questions following commands. Const Vital Signs: 09/18/25 16:39 09/18/25 16:45 09/18/25 17:44 Temperature 98.3 F 98.5 F Temperature Source Oral Oral Pulse Rate 97 90 Respiratory Rate 18 18 Respiratory Pattern Normal Blood Pressure 187/94 H 149/89 H Blood Pressure Mean 125 109 Pulse Ox 98 98 Oxygen Delivery Method Nasal Cannula Nasal Cannula Oxygen Flow Rate (L/min) 3 09/18/25 20:00 Temperature Temperature Source Pulse Rate 81 Respiratory Rate 20 H Respiratory Pattern Blood Pressure 165/96 H Blood Pressure Mean 119 Pulse Ox 100 Oxygen Delivery Method Nasal Cannula Oxygen Flow Rate (L/min) MDM MDM MDM Narrative Medical decision making narrative: 59-year-old female history of insulin diabetes. Having issues with low blood sugars the last several days in the 50s. No LOC. Denies other complaints. Screening labs and a UA to be obtained. Repeat exam patient is doing well at 9:55 PM. She be discharged to home watch her sugars closely. Follow-up with primary care physician to see if they need to adjust her diabetic medications. History & Record Review Discussion w/independent historian: Patient and Family Additional record(s) reviewed:: Prior inpatient record, Prior outpatient record, Prior ED visit and Prior labs Lab Data Attestation: I reviewed the patient's lab results. Lab results narrative: CBC shows a white count of 7. H&H 10.3 and 30. Platelets 166. Electrolytes are sodium 138. Gap at 9. BUN and creatinine are 13 and 0.8. Glucose 139. Urinalysis normal. No white-red cells. No nitrates or bacteria. Labs are consistent with baseline. I do not have a specific cause for her hypoglycemia. Labs: Laboratory Results - last 24 hr 09/18/25 09/18/25 09/18/25 17:10 18:15 20:38 WBC 7.6 RBC 3.43 L Hgb 10.3 L Hct 30.8 L MCV 89.8 MCH 30.0 MCHC 33.4 RDW Std Deviation 42.4 RDW Coeff of Jocy 13.2 Plt Count 166 MPV 9.2 Sodium 138 Potassium 4.2 Chloride 98 Carbon Dioxide 31.1 Anion Gap 9 BUN 13 Creatinine 0.80 Estim Creat Clear Calc 105.16 Est GFR (MDRD) Non-Af 84 BUN/Creatinine Ratio 16.6 Glucose 139 H Calcium 8.9 Urine Color Straw Urine Clarity Clear Urine pH 7.0 Ur Specific [place] 1.010 Urine Protein 15 H Urine Glucose (UA) Normal Urine Ketones Negative Urine Occult Blood Negative Urine Nitrite Negative Urine Bilirubin Negative Urine Urobilinogen Normal Ur Leukocyte Esterase 25 H Urine RBC 0-5 SEEN Urine WBC 0-5 SEEN Ur Squamous Epith Cells 0-5 SEEN Urine Bacteria 0 SEEN Urine Mucus 0 SEEN POC Glucose 101 Discharge Plan Triage Chief Complaint: Hypertension ED Provider: Oni Lester Dx/Rx/DC Orders Clinical Impression: Hypoglycemia associated with diabetes, History of diabetes mellitus Instructions: Hypoglycemia (Low Blood Sugar) Prescriptions: No Action omeprazole 40 mg capsule,delayed release(DR/EC) 40 mg PO DAILY pregabalin 150 mg capsule 150 mg PO TID ergocalciferol (vitamin D2) [Vitamin D2] 1,250 mcg (50,000 unit) capsule 50,000 unit PO QMONTH acetaminophen 500 mg tablet 1,000 mg PO TID insulin lispro [Humalog KwikPen Insulin] 100 unit/mL insulin pen 1 sliding scale dose subcut USEASDIRECTD Rx Instructions: 180-200=2u 201-250=4u 251-300=6u 301-350=8u 351-400=10u 401-450=12u >451 notify lidocaine [Aspercreme (lidocaine)] 4 % adhesive patch,medicated 1 patch topical QDAY Rx Instructions: right hip Invega Sustenna 117 mg/0.75 mL syringe 117 mg IM Q30D bupropion HCl 300 MG tablet extended release 24 hr 450 mg PO DAILY Patient Comments: DEPRESSION albuterol sulfate 1 INHALER inhaler 2 puff INHALATION Q4H PRN (Reason: Sob &/Or Wheezing) fluticasone propionate 1 SPRAY spray,suspension 2 spray NASAL DAILY aspirin 81 MG tablet,chewable 81 mg PO DAILY@0800 0RF cetirizine [Zyrtec] 10 mg Tablet 10 mg PO DAILY triamcinolone acetonide 0.1 % Cream 1 applic TOPICAL TID PRN (Reason: Rash) primidone 250 mg Tablet 750 mg PO QHS buspirone 10 mg Tablet 20 mg PO TID colchicine 0.6 mg Tablet 0.6 mg PO DAILY guaifenesin [Mucinex] 600 mg Tablet Extended Release 12hr 1,200 mg PO BID PRN (Reason: Cough) fluticasone propion-salmeterol 500-50 mcg/dose blister with device 1 inh INHALATION BID lactulose 10 gram/15 mL solution 60 ml PO BID PRN (Reason: Constipation) ondansetron 4 MG tablet 4 mg PO Q8H PRN (Reason: Nausea) trazodone 150 mg tablet 150 mg PO QHS Patient Comments: pt states she takes 1/2tab lisinopril 10 mg tablet 5 mg PO BID escitalopram oxalate 20 mg tablet 20 mg PO DAILY albuterol sulfate 2.5 mg /3 mL (0.083 %) solution for nebulization 2.5 mg inhalation Q6H PRN (Reason: shortness of breath or wheezing) allopurinol 100 mg tablet 100 mg PO DAILY oxybutynin chloride 15 mg tablet extended release 24hr 15 mg PO DAILY miconazole nitrate 2 % cream 1 applic topical PRN dicyclomine 20 mg tablet 20 mg PO TID montelukast 10 mg tablet 10 mg PO DAILY lorazepam 1 mg tablet 1 mg PO BID hydroxyzine pamoate 25 mg capsule 25 mg PO TID PRN hydrocodone-acetaminophen 7.5-325 mg tablet 1 tab PO 4X/DAY PRN OXYGEN - Supplemental ([facility] INFORMATIONAL USE ONLY) Patient Comments: home oxygen through [facility]. Verified 3L @ rest and 5L with exertion via NC-per CM pervious admissions note benztropine 0.5 mg Tablet 0.5 mg PO BID 30 Days Qty: 60 0RF doxycycline monohydrate 100 mg Capsule 100 mg PO BID 3 Days Qty: 7 0RF insulin lispro 100 unit/mL insulin pen 20 unit subcut ACHS 30 Days Qty: 15 0RF Rx Instructions: Max daily insulin lispro 60 units insulin glargine 100 unit/mL (3 mL) insulin pen 50 unit SUBCUT BID Qty: 15 0RF Rx Instructions: Max daily glargine 100units nadolol 80 mg tablet 40 mg PO BID Primary Care Provider: Cristal Wolf Referrals: Cristal Wolf MD [Primary Care Provider, Internal Medicine] - As soon as possible Activity Restrictions/Additional Instructions: Follow-up with your primary care physician to review your diabetic medications. They may have to adjust them. Watch your blood sugars very closely. Make sure you check it before you go to bed. Eat a snack before you go to bed. Print Language: Djib[place]ian Disposition Disposition: Home, Self Care
[2025-09-18 17:44] VITALS: BP 149/89; PULSE 90; RESP 18; TEMP 36.9; O2SAT 98
[2025-09-18 18:05] LABS: Mucous, Urine 0 SEEN /hpf (<or=2+)
[2025-09-18 18:47] LABS: Hematocrit 30.8 % (37-47); Hemoglobin 10.3 g/dL (12.0-15.0); Mean Corp Hgb Conc 33.4 g/dL (32-36); Mean Corpuscular Volume 89.8 fL (81-99); Mean Platelet Vol. 9.2 fl (6.2-12.0); Platelet Count 166 K/mm3 (150-450); RBC Distribution Width CV 13.2 % (11.6-14.6); RBC Distribution Width SD 42.4 fl (35.1-43.9); Red Blood Count 3.43 M/mm3 (4.2-5.4); White Blood Count 7.6 K/mm3 (4.4-11.0)
[2025-09-18 18:50] LABS: Anion Gap 9 (5-15); BUN 13 mg/dL (4-19); BUN/Creat Ratio 16.6 RATIO (10-20); Calcium,Total 8.9 mg/dL (7.6-11.0); Carbon Dioxide 31.1 mmol/L (21.0-32.0); Chloride 98 mmol/L (98-108); Estimated Creatinine Clearance 105.16 ml/min (50-250); Glucose 139 mg/dL (70-99); Potassium 4.2 mmol/L (3.3-5.1)
[2025-09-18 18:59] LABS: Color, Urine Straw (Yellow); Glucose, Dipstick Normal (Normal); Ketone-Dipstick Negative (Negative); Leukocyte Esterase-Dipstick 25 /ul (Negative); Nitrite-Dipstick Negative (Negative); Occult Blood-Urine Negative /ul (Negative); Protein-Dipstick 15 mg/dl (Negative); Specific Gravity, Urine 1.010 (1.002-1.030); Urine Bilirubin Dipstick Negative (Negative)
[2025-09-18 19:23] LABS: Red Blood Cells-Urine 0-5 SEEN /hpf (0-5); Squamous Epithelial Cells - UA 0-5 SEEN /hpf (5-10)
[2025-09-18 20:00] VITALS: BP 165/96; PULSE 81; RESP 20; O2SAT 100
--- NOTE | 2025-09-18 22:32 | ED.RN ---
Pt father and pt are upset they have been waiting, pt states she just wants to leave, pt asks for IV to be removed and pt discharged from department. Declines having vitals taken.
== END 2025-09-18 22:34 | disposition home or self-care (01) ==
PROVIDERS: Emergency Provider Emergency Medicine; PCP Internal Medicine; Visit Provider Emergency Medicine
DX: E11.649 Type 2 diabetes mellitus with hypoglycemia without coma (principal); I11.0 Hypertensive heart disease with heart failure; I50.9 Heart failure, unspecified; J44.9 Chronic obstructive pulmonary disease, unspecified; J32.9 Chronic sinusitis, unspecified
CPT/HCPCS: 80048; 81001; 82962; 85027; 99285; A4216

== ENCOUNTER 2025-10-07 10:00 | Observation (INO) | payer MEDICAID, SELFPAY ==
[2025-10-07] VITALS (30 sets, daily range): BP systolic 121–169; BP diastolic 62–98; PULSE 70–76; RESP 16–19; TEMP 36.6–37.1; O2SAT 94–100; BMI 52.2; BMI 51.0
--- NOTE | 2025-10-07 10:20 | EKG12_ITS ---
Test Reason : WEAKNESS Blood Pressure : */* mmHG Vent. Rate : 67 BPM Atrial Rate : 67 BPM P-R Int : 176 ms QRS Dur : 102 ms QT Int : 382 ms P-R-T Axes : 51 2 -8 degrees QTcB Int : 403 ms Normal sinus rhythm Nonspecific T wave abnormality Abnormal ECG Confirmed by VENU MILES MD ([id number]), editorial assistant KM ALANIS ([id number]) on 10/08/2025 6:50:44 AM Referred By: Confirmed By: VENU MILES MD
[2025-10-07 10:38] LABS: Hematocrit 34.3 % (37-47); Hemoglobin 10.7 g/dL (12.0-15.0); Immature Granulocytes Count 0.040 X10^3/uL (0.0-0.0); Mean Corp Hgb Conc 31.2 g/dL (32-36); Mean Corpuscular Volume 96.1 fL (81-99); Mean Platelet Vol. 9.5 fl (6.2-12.0); NRBC Flagged by Analyzer 0 % (0-5); Platelet Count 167 K/mm3 (150-450); RBC Distribution Width CV 13.8 % (11.6-14.6); RBC Distribution Width SD 48.3 fl (35.1-43.9); Red Blood Count 3.57 M/mm3 (4.2-5.4); White Blood Count 6.4 K/mm3 (4.4-11.0)
--- NOTE | 2025-10-07 10:45 | RAD_ITS ---
PROCEDURE: CHEST PA AND LATERAL 10/07/2025 REASON FOR EXAM: WEAKNESS TECHNIQUE: Procedure Code: RADCXR Modality: DX Procedure: CHEST PA AND LATERAL COMPARISON: August 25, 2025. FINDINGS: Hardware: EKG electrodes are seen. Heart: Borderline cardiomegaly. Mediastinum: The mediastinal contour is stable. Lungs: Stable elevation of the right hemidiaphragm. Mild degree of vascular congestion. Bones: Degenerative changes are identified within the thoracic spine. RAD/Chest PA and Lateral IMPRESSION: Mild degree of vascular congestion. Borderline cardiomegaly. Reading Location: [id number]
[2025-10-07 11:08] LABS: AST(SGOT) 26 U/L (<=31); Alanine Aminotransfer ALT/SGPT 20 U/L (<=34); Albumin, Serum 3.7 g/dL (3.4-4.8); Alkaline Phosphatase 52 U/L (35-104); Anion Gap 10 (5-15); BUN 25 mg/dL (4-19); BUN/Creat Ratio 34.1 RATIO (10-20); Calcium,Total 9.5 mg/dL (7.6-11.0); Carbon Dioxide 29.8 mmol/L (21.0-32.0); Chloride 100 mmol/L (98-108); Estimated Creatinine Clearance 118.08 ml/min (50-250); Globulin 3.4 g/dL (2.2-4.2); Glucose 141 mg/dL (70-99); Potassium 5.6 mmol/L (3.3-5.1); Pro- Brain NATRIURETIC PEPTIDE 159 pg/mL (<=900)
[2025-10-07 11:38] LABS: Mucous, Urine 0 SEEN /hpf (<or=2+); Red Blood Cells-Urine 0 SEEN /hpf (0-5)
[2025-10-07 11:42] LABS: Color, Urine Yellow (Yellow); Glucose, Dipstick Normal (Normal); Ketone-Dipstick Negative (Negative); Leukocyte Esterase-Dipstick 25 /ul (Negative); Nitrite-Dipstick Negative (Negative); Occult Blood-Urine Negative /ul (Negative); Protein-Dipstick 30 mg/dl (Negative); Specific Gravity, Urine 1.025 (1.002-1.030); Urine Bilirubin Dipstick Negative (Negative)
[2025-10-07 11:51] LABS: Squamous Epithelial Cells - UA 0-5 SEEN /hpf (5-10)
[2025-10-07 11:52] LABS: Yeast-Urine RARE /hpf (None Seen)
--- NOTE | 2025-10-07 13:24 | EDS_ITS ---
HPI History of Present Illness Chief Complaint: Weakness Informant: patient and family Narrative Narrative: Patient is a 59-year-old female with history of heart failure with preserved EF, iron deficiency anemia, type 2 diabetes mellitus and tardive dyskinesia pre senting for evaluation of generalized weakness and feeling she is going to fall. Patient states she started to feel more shaky over the past few days and has had increased weakness. She states she could not even walk about 10 feet at home without feeling like she was going to fall as if her legs are going to give out or she is going to pass out. She notes this really became bad last night and this morning. She has had some increased shortness of breath with her weakness. She denies any associate cough or change in her cough. She denies any change in her sputum production. She denies associated chest pain or leg swelling. Is not reporting history of DVT or PE. Denies any fever or chills. Has a chronic urinary incontinence denies any urinary symptoms. Denies abdominal pain or nausea. Denies any black or blood in her stool. Apparently was very weak with home health today and she was walking without her oxygen in the house (this is normal for her) and her oxygen did not drop to 88%. [facility] Medical History Congestive heart failure (CHF) Anemia Osteoarthritis CHCF current use of insulin Old myocardial infarction Adult failure to thrive Anemia COPD (chronic obstructive pulmonary disease) Chronic hypoxic respiratory failure, on home oxygen therapy COPD (chronic obstructive pulmonary disease) Bipolar disorder Non-smoker CPAP (continuous positive airway pressure) dependence On home oxygen therapy Myocardial infarct Hypertension History of ESBL E. coli infection Schizophrenia Other specified peripheral vascular diseases Chronic painful diabetic polyneuropathy Edema of both lower extremities Venous insufficiency (chronic) (peripheral) Diabetes PTSD (post-traumatic stress disorder) Depression Schizo affective schizophrenia Hypersomnia, unspecified Diabetes Left ventricular aneurysm Essential hypertension Chest pain Diabetes mellitus type 2, uncontrolled, with complications Back pain Asthma Knee pain Migraines Fatigue Hemorrhoids COPD (chronic obstructive pulmonary disease) Arthritis Pain syndrome, chronic Bipolar disorder Migraines Obstructive sleep apnea Stasis dermatitis of both legs Venous insufficiency of both lower extremities Super obese Open wound of left lower extremity GERD (gastroesophageal reflux disease) Benign hypertension ADHD (attention deficit hyperactivity disorder) Home Medications ?Medication ?Instructions ?Recorded ?Last Taken ?Type bupropion HCl 300 mg 24 hr tablet, 300 mg PO DAILY [facility] 03/05/17 10/06/25 History extended release albuterol sulfate 90 mcg/actuation 2 puff inhalation Q 4H PRN Sob &/Or 05/29/18 10/06/25 History aerosol inhaler Wheezing aspirin 81 mg chewable tablet 81 mg PO DAILY@0800 hear t health 07/17/20 10/06/25 Rx buspirone 10 mg tablet 20 mg PO TID mood 01/25/22 1 12/06/24 History cetirizine 10 mg tablet (Zyrtec) 10 mg PO DAILY allerg ies 01/25/22 10/06/25 History guaifenesin 600 mg tablet, 1,200 mg PO BID PRN Cough 0 01/25/22 08/24/25 History extended release 12 hr (Mucinex) primidone 250 mg tablet 750 mg PO QHS seizures 01/2510/06/25 History fluticasone 500 mcg-salmeterol 50 1 inh inhalation BID breathing 05/02/22 10/06/25 History mcg/dose blistr powdr for inhalation omeprazole 40 mg capsule,delayed 40 mg PO DAILY gerd 0 05/02/22 10/06/25 History release ergocalciferol (vitamin D2) 1,250 50,000 unit PO QMONT [facility] 08/10/22 04/21/25 History mcg (50,000 unit) capsule (Vitamin D2) pregabalin 150 mg capsule 150 mg PO TID pain 08/10/22 10/06/25 History ondansetron 4 mg disintegrating 4 mg PO Q8H PRN Nausea 10/03/24 08/23/25 History tablet trazodone 150 mg tablet 150 mg PO QHS sleep 10/03/24 10/06/25 History albuterol sulfate 2.5 mg/3 mL 2.5 mg inhalation Q6H [place] N 02/25/25 10/06/25 H istory (0.083 %) solution for nebulization shortness of breat h or wheezing escitalopram oxalate 20 mg tablet 20 mg PO DAILY [facility] 03/01/25 10/06/25 History acetaminophen 500 mg tablet 1,000 mg PO TID PAIN 04/1710/06/25 History insulin lispro 100 unit/mL 1 sliding scale dose subcut 04/17/25 04/21/25 History subcutaneous pen (Humalog KwikPen USEASDIRECTD (U-100) Insulin) Held on 10/07/25. Instructions: Ordered lidocaine 4 % topical patch 1 patch topical QDAY 04/1710/06/25 History (Aspercreme (lidocaine)) lisinopril 10 mg tablet 10 mg PO DAILY blood pressur e 04/17/25 10/06/25 History nadolol 80 mg tablet 40 mg PO BID high blood pres sure 04/17/25 10/06/25 History allopurinol 100 mg tablet 100 mg PO DAILY GOUT 5 10/06/25 History OXYGEN - Supplemental ([facility] hypoxia 08/25/25 Unknown Hi story INFORMATIONAL USE ONLY) dicyclomine 20 mg tablet 20 mg PO TID IBS 08/25/25 History hydrocodone 7.5 mg-acetaminophen 1 tab PO Q6H PRN pain 08/25/25 10/06/25 History 325 mg tablet hydroxyzine pamoate 25 mg capsule 25 mg PO BID PRN itc yousif/anxiety 08/25/25 10/06/25 History lorazepam 1 mg tablet 1 mg PO BID ANXIETY 08/25/25 10/06/25 History miconazole nitrate 2 % topical 1 applic topical BID 10/06/25 History cream montelukast 10 mg tablet 10 mg PO QHS ALLERGIES 08/2510/06/25 History oxybutynin chloride 15 mg 15 mg PO DAILY BLADDER 08/2510/06/25 History tablet,extended release 24 hr benztropine 0.5 mg tablet 0.5 mg PO BID MUSCLE SPASMS 30 08/27/25 10/06/25 Rx days #60 tabs insulin lispro 100 unit/mL 20 unit (0.2 mL) subcut ACH S DM 30 08/27/25 10/06/25 Rx subcutaneous pen days #15 mL Lactobacillus acidophilus 0.5 mg 0.5 mg PO DAILY SUPPL EMENT 10/07/25 10/06/25 History (100 million cell) tablet benzonatate 100 mg capsule 200 mg PO TID PRN cough Unknown History chlorhexidine gluconate 4 % 1 applic topical DAILY PRN open 10/07/25 Unknown History topical liquid (Merary-Hex) area leg cholecalciferol (vitamin D3) 1,250 1,250 mcg PO QWEEK SUPPLEMENT 10/07/25 10/01/25 History mcg (50,000 unit) capsule insulin glargine U-300 conc 300 75 unit subcut BID BLO OD SUGAR 10/07/25 10/06/25 History unit/mL (3 mL) subcutaneous pen (Toujeo Max U-300 SoloStar) ipratropium bromide 42 mcg (0.06 2 spray intranasal 4X /DAY PRN 10/07/25 Unknown History %) nasal spray allergy symptoms lactulose 10 gram/15 mL oral 40 g PO BID constipation 10/07/25 10/06/25 History solution (Enulose) lidocaine 4 % topical cream 1 applic topical DAILY PRN pain 10/07/25 Unknown History loperamide 2 mg capsule 2 mg PO 4X/DAY PRN loose sto ol 10/07/25 Unknown History naratriptan 2.5 mg tablet 2.5 mg PO PRN migraine 10/07 Unknown History paliperidone palm (3 month) 819 819 mg IM .EVERY 3 MON TH MOOD 10/07/25 Unknown History mg/2.63 mL intramuscular syringe (Invega MangoPlateza) semaglutide 0.25 mg or 0.5 mg (2 0.25 mg subcut QWEEK BLOOD SUGAR 10/07/25 Unknown History mg/3 mL) subcutaneous pen injector (Ozempic) tizanidine 4 mg tablet 4 mg PO BID PRN muscle spast icity 10/07/25 Unknown History trospium 20 mg tablet 20 mg PO BID BLADDER 5 10/06/25 History Allergy/AdvReac Type Severity Reaction Status Date / Time meloxicam Allergy Severe Anaphylaxis Verified 10/07/25 10:07 vancomycin Allergy Severe BURNING Verified 10/07/25 10:07 RED RASH ON LEGGS amlodipine (From Norvasc) Allergy Swelling Verified 10/07/25 10:07 cefazolin sodium (From Ancef) Allergy Hives Verified 10/07/25 10:07 fexofenadine (From Nia) Allergy Shortness Verified 10/07/25 10:07 of breath nitrofurantoin (From Allergy Hives Verified 10/07/25 10:07 Macrobid) Penicillins Allergy Hives Verified 10/07/25 10:07 sumatriptan (From Imitrex) Allergy Shortness Verified 10/07/25 10:07 of breath adhesive AdvReac BURNING Verified 10/07/25 10:07 amitriptyline (From Elavil) AdvReac Other Verified 10/07/25 10:07 clindamycin AdvReac Diarrhea Verified 10/07/25 10:07 ziprasidone (From Geodon) AdvReac NEEDS Verified 10/07/25 10:07 FOLLOW-UP Family History Father CVA (cerebral vascular accident) Heart disease Mother Heart disease Surgical History History of elbow surgery (~06/2020) History of arthroscopic knee surgery History of left heart catheterization (07/16/20) Kidney stone H/O hernia repair Hx of hysterectomy Hx of section Social History household members: family housing: house Smoking Status: Never smoker alcohol intake: never substance use type: does not use caffeine: Yes (occasionally) ROS ROS ED Constitutional Constitutional ED: Denies chills or fever(s) Eyes Eyes: Denies change in vision Cardiovascular Cardiovascular: Denies chest pain or palpitations Respiratory/Chest Respiratory/Chest: Reports dyspnea on exertion; Denies cough Gastrointestinal Gastrointestinal: Denies abdominal pain, nausea or vomiting Musculoskeletal Musculoskeletal: Reports arthralgias and myalgias Integumentary Denies rash Neurologic Neurologic: Reports weakness; Denies paresthesias Psychiatric Psychiatric: Reports anxiety Hematologic/Lymphatic Hematologic/Lymphatic: Denies easy bleeding or easy bruising EXAM Physical Exam Const Vital Signs: 10/07/25 10:03 10/07/25 10:33 10/07/25 11:19 Temperature 98.8 F Temperature Source Oral Pulse Rate 76 Respiratory Rate 19 H Respiratory Effort Normal Respiratory Pattern Normal Blood Pressure 121/92 H Blood Pressure Mean 101 Pulse Ox 100 100 Oxygen Delivery Method Room Air Oxygen Flow Rate (L/min) 10/07/25 11:21 10/07/25 11:30 10/07/25 11:45 Temperature Temperature Source Pulse Rate Respiratory Rate Respiratory Effort Respiratory Pattern Blood Pressure 161/84 H Blood Pressure Mean 103 Pulse Ox 100 100 99 Oxygen Delivery Method Nasal Cannula Oxygen Flow Rate (L/min) 3 10/07/25 12:01 10/07/25 12:15 10/07/25 12:30 Temperature Temperature Source Pulse Rate Respiratory Rate Respiratory Effort Respiratory Pattern Blood Pressure Blood Pressure Mean Pulse Ox 100 100 100 Oxygen Delivery Method Oxygen Flow Rate (L/min) 10/07/25 12:45 10/07/25 13:00 10/07/25 13:15 Temperature Temperature Source Pulse Rate Respiratory Rate Respiratory Effort Respiratory Pattern Blood Pressure Blood Pressure Mean Pulse Ox 100 100 98 Oxygen Delivery Method Oxygen Flow Rate (L/min) 10/07/25 13:30 10/07/25 13:45 10/07/25 14:00 Temperature Temperature Source Pulse Rate Respiratory Rate Respiratory Effort Respiratory Pattern Blood Pressure Blood Pressure Mean Pulse Ox 100 100 98 Oxygen Delivery Method Oxygen Flow Rate (L/min) 10/07/25 14:15 10/07/25 14:30 10/07/25 14:45 Temperature Temperature Source Pulse Rate Respiratory Rate Respiratory Effort Respiratory Pattern Blood Pressure Blood Pressure Mean Pulse Ox 100 100 99 Oxygen Delivery Method Oxygen Flow Rate (L/min) 10/07/25 15:00 10/07/25 15:15 10/07/25 15:30 Temperature Temperature Source Pulse Rate 70 Respiratory Rate Respiratory Effort Respiratory Pattern Blood Pressure 141/98 H Blood Pressure Mean 112 Pulse Ox 98 100 100 Oxygen Delivery Method Oxygen Flow Rate (L/min) 10/07/25 15:47 10/07/25 15:48 10/07/25 16:00 Temperature Temperature Source Pulse Rate Respiratory Rate Respiratory Effort Respiratory Pattern Blood Pressure 169/94 H 141/98 H Blood Pressure Mean 102 112 Pulse Ox 94 94 100 Oxygen Delivery Method Oxygen Flow Rate (L/min) 10/07/25 16:01 Temperature Temperature Source Pulse Rate Respiratory Rate Respiratory Effort Respiratory Pattern Blood Pressure Blood Pressure Mean Pulse Ox 100 Oxygen Delivery Method Oxygen Flow Rate (L/min) 3 Positive well nourished and well developed General Appearance ED: well developed and NAD HEENT Reports moist mucous membranes Neck supple and no JVD Chest Wall inspection of chest normal and palpation of chest normal Resp normal respiratory effort and clear to auscultation bilaterally Auscultation: Negative for rales, rhonchi or wheezes Cardio regular rate and regular rhythm GI normal to inspection, nondistended, normoactive bowel sounds and non-tender Extremity normal to inspection Extremity Narrative: Healing wound to the left anterior perera. No secondary signs of infection. States she follows with Dr. Lewis at wound care [facility] ED: Negative for edema General Extremity: Negative for edema Neuro oriented x3 Sensorium / Orientation: alert Motor Exam: general weakness Psych mental status grossly normal Skin Skin Narrative: For healing wounds of the left anterior superior perera. MDM MDM MDM Narrative Medical decision making narrative: Patient evaluate generalized weakness. States he felt short of breath last night. Currently denies any cardiopulmonary symptoms. Does have significant cardiac history including heart failure with preserved ejection fraction. Looks chronically unhealthy but not acutely fluid overloaded. Differential includes not limited to CHF exacerbation, generalized debility, symptomatic anemia, urinary tract infection and pneumonia. She denies any change in her cough or O2 demands's lower suspicion for acute pulmonary infection. Do not think she requires viral testing. EKG does not show any acute ischemic changes I do not think she requires serial troponins. Workup shows a mild anemia with a hemoglobin 10.7 which appears chronic.No leukocytosis. She has mild hyperglycemia the glucose of 141 but normal anion gap. Normal CMP otherwise. Urinalysis sexist with infection. Chest x-ray shows findings consistent with CHF suspect is more chronic, interpretation. Her BNP is normal. She is able emergency room and is quite weak but oxygen kathleen is stable at her 3 L of oxygen. After discussion with her and her father they tell me that they do not feel comfortable with her going home because of her weakness. Case was discussed with hospitalist who would like PT evaluation she does not meet admission criteria at this time with her workup. Social work and PT evaluation performed. PT does recommend admission for further evaluation possible SNF placement versus home health. Case is discussed with hospitalist again for admission. Lab Data Attestation: I reviewed the patient's lab results. Labs: Laboratory Results - last 24 hr 10/07/25 10/07/25 10:30 11:34 WBC 6.4 RBC 3.57 L Hgb 10.7 L Hct 34.3 L MCV 96.1 MCH 30.0 MCHC 31.2 L RDW Std Deviation 48.3 H RDW Coeff of Jocy 13.8 Plt Count 167 MPV 9.5 Immature Gran % (Auto) 0.600 Neut % (Auto) 79.3 H Lymph % (Auto) 12.7 L [place] % (Auto) 7.2 Eos % (Auto) 0.0 Baso % (Auto) 0.2 Absolute Neuts (auto) 5.1 Absolute Lymphs (auto) 0.81 L Nucleated RBC % 0 Sodium 140 Potassium 5.6 H Chloride 100 Carbon Dioxide 29.8 Anion Gap 10 BUN 25 H Creatinine 0.72 Estim Creat Clear Calc 118.08 Est GFR (MDRD) Non-Af 95 BUN/Creatinine Ratio 34.1 H Glucose 141 H Calcium 9.5 Total Bilirubin 0.22 AST 26 ALT 20 Alkaline Phosphatase 52 NT pro BNP II 159 Total Protein 7.1 Albumin 3.7 Globulin 3.4 Albumin/Globulin Ratio 1.1 Urine Color Yellow Urine Clarity Clear Urine pH 6.0 Ur Specific [place] 1.025 Urine Protein 30 H Urine Glucose (UA) Normal Urine Ketones Negative Urine Occult Blood Negative Urine Nitrite Negative Urine Bilirubin Negative Urine Urobilinogen Normal Ur Leukocyte Esterase 25 H Urine RBC 0 SEEN Urine WBC 0-5 SEEN Ur Squamous Epith Cells 0-5 SEEN Urine Bacteria 0 SEEN Urine Mucus 0 SEEN Urine Yeast RARE Radiography Chest X-Ray - ED: 2 View, Read by ED Physician, Read by Radiologist and Cardiomegaly Diagnostic Testing: Clinical Impression(s) from Imaging Studies Chest X-Ray 10/07/25 10:45 IMPRESSION: Mild degree of vascular congestion. Borderline cardiomegaly. Reading Location: [facility] Rhythm Strip Rhythm Strip: Sinus Rhythm Rate: 67 Ectopy: None EKG Initial EKG: Attestation: I personally reviewed and interpreted this EKG as follows: Interpretation: Sinus Rhythm Comments: Normal sinus rhythm rate of 67 bpm Borderline left axis T wave inversions in inferior leads as well as V2 and V3 with no reciprocal changes Prior EKG tracings: available for review Prior: Unchanged Management Discussion w/another healthcare provider: Hospitalist, family preservation worker/Case management and Other (Physical therapy) Discharge Plan Triage Chief Complaint: Weakness ED Provider: Leslye Butler Dx/Rx/DC Orders Clinical Impression: Debility, (HFpEF) heart failure with preserved ejection fraction, Iron deficiency anemia, Hyperglycemia due to diabetes mellitus, Fatigue, Chronic hypoxic respiratory failure Prescriptions: No Action omeprazole 40 mg capsule,delayed release(DR/EC) 40 mg PO DAILY pregabalin 150 mg capsule 150 mg PO TID ergocalciferol (vitamin D2) [Vitamin D2] 1,250 mcg (50,000 unit) capsule 50,000 unit PO QMONTH acetaminophen 500 mg tablet 1,000 mg PO TID insulin lispro [Humalog KwikPen Insulin] 100 unit/mL insulin pen 1 sliding scale dose subcut USEASDIRECTD Rx Instructions: 180-200=2u 201-250=4u 251-300=6u 301-350=8u 351-400=10u 401-450=12u >451 notify lidocaine [Aspercreme (lidocaine)] 4 % adhesive patch,medicated 1 patch topical QDAY Rx Instructions: right hip bupropion HCl 300 MG tablet extended release 24 hr 300 mg PO DAILY Patient Comments: DEPRESSION albuterol sulfate 1 INHALER inhaler 2 puff INHALATION Q4H PRN (Reason: Sob &/Or Wheezing) aspirin 81 MG tablet,chewable 81 mg PO DAILY@0800 0RF cetirizine [Zyrtec] 10 mg Tablet 10 mg PO DAILY primidone 250 mg Tablet 750 mg PO QHS buspirone 10 mg Tablet 20 mg PO TID guaifenesin [Mucinex] 600 mg Tablet Extended Release 12hr 1,200 mg PO BID PRN (Reason: Cough) fluticasone propion-salmeterol 500-50 mcg/dose blister with device 1 inh INHALATION BID ondansetron 4 MG tablet 4 mg PO Q8H PRN (Reason: Nausea) trazodone 150 mg tablet 150 mg PO QHS Patient Comments: pt states she takes 1/2tab lisinopril 10 mg tablet 10 mg PO DAILY Rx Instructions: do not take if blood pressure < 100/60 escitalopram oxalate 20 mg tablet 20 mg PO DAILY cholecalciferol (vitamin D3) 1,250 mcg (50,000 unit) capsule 1,250 mcg PO QWEEK Patient Comments: every monday Invega Trinza 819 mg/2.63 mL syringe 819 mg IM .EVERY 3 MONTH Patient Comments: LAST SHOT IN AUGUST. TAKES EVERY 3 MONTHS. NEXT SHOT IS DUE IN NOVEMBER Lactobacillus acidophilus 0.5 mg (100 million cell) tablet 0.5 mg PO DAILY insulin glargine U-300 conc [Toujeo Max U-300 SoloStar] 300 unit/mL (3 mL) insulin pen 75 unit SUBCUT BID Patient Comments: [NO ORIGINAL SIG] benzonatate 100 mg capsule 200 mg PO TID PRN (Reason: cough) chlorhexidine gluconate [Merary-Hex] 4 % liquid 1 applic TOPICAL DAILY PRN (Reason: open area leg) Patient Comments: [NO ORIGINAL SIG] lactulose [Enulose] 10 gram/15 mL solution 40 g PO BID lidocaine 4 % cream 1 applic topical DAILY PRN (Reason: pain) loperamide 2 mg capsule 2 mg PO 4X/DAY PRN (Reason: loose stool) Rx Instructions: can take up to 4 times a day if needed ipratropium bromide 42 mcg (0.06 %) spray,non-aerosol 2 spray intranasal 4X/DAY PRN (Reason: allergy symptoms) Rx Instructions: administer into each nostril naratriptan 2.5 mg tablet 2.5 mg PO PRN tizanidine 4 mg tablet 4 mg PO BID PRN (Reason: muscle spasticity) trospium 20 mg tablet 20 mg PO BID Ozempic 0.25 mg or 0.5 mg (2 mg/3 mL) pen injector 0.25 mg subcut QWEEK Patient Comments: PT TAKES ON TUESDAYS Rx Instructions: for 4 weeks albuterol sulfate 2.5 mg /3 mL (0.083 %) solution for nebulization 2.5 mg inhalation Q6H PRN (Reason: shortness of breath or wheezing) allopurinol 100 mg tablet 100 mg PO DAILY oxybutynin chloride 15 mg tablet extended release 24hr 15 mg PO DAILY miconazole nitrate 2 % cream 1 applic topical BID dicyclomine 20 mg tablet 20 mg PO TID montelukast 10 mg tablet 10 mg PO QHS lorazepam 1 mg tablet 1 mg PO BID hydroxyzine pamoate 25 mg capsule 25 mg PO BID PRN (Reason: itching/anxiety) Rx Instructions: take 2-3 capsules by mouth twice daily as needed for itching/rash or anxiety hydrocodone-acetaminophen 7.5-325 mg tablet 1 tab PO Q6H PRN (Reason: pain) Patient Comments: PT STATES SHE TAKES ONCE DAILY Rx Instructions: up to 7 days OXYGEN - Supplemental ([facility] INFORMATIONAL USE ONLY) Patient Comments: home oxygen through [employer]. Verified 3L @ rest and 5L with exertion via NC-per CM pervious admissions note benztropine 0.5 mg Tablet 0.5 mg PO BID 30 Days Qty: 60 0RF insulin lispro 100 unit/mL insulin pen 20 unit subcut ACHS 30 Days Qty: 15 0RF Patient Comments: PT STATES SHE ONLY TAKES WITH MEALS AND TAKES 22 UNITS FOR THE SUPPER DOSE Rx Instructions: Max daily insulin lispro 60 units nadolol 80 mg tablet 40 mg PO BID Primary Care Provider: Cristal Wolf Referrals: Cristal Wolf MD [Primary Care Provider, Internal Medicine] Print Language: Pashto
--- NOTE | 2025-10-07 15:20 | CM.ED ---
Social work Reason for referral: other Referrral source: Dr Butler SW talked to Dr Butler who stated patient did not need admitted for medical reasons, but patient was reportedly stating the need for admission due to living alone. Carrie put in an order for a PT evaluation to occur in the ED and SW entered patient's room to have a conversation with patient and patient's father, Elliott. SW introduced self and role at [facility]; patient stated remembering SW from previous ED visits. Per doctor request, SW stated that PT was going to come to assess patient as medically, it was not looking like patient was requiring admission. Patient became tearful and expressed feeling scared to go home due to feeling as if patient was going to fall and patient knowing I'm unstable. Patient confirmed having [facility], including aides that come to the home M-F, 8a-4p that can help patient with ADL/IADLs. Patient stated also having a [facility] nurse who comes once per week; patient stated this RN sent patient to the ED today due to patient being shaky. Patient stated further that patient's doorbell to the apartment complex is not working which means patient has to go walk to the main entrance every time an aide comes. SW asked if it would be possible to get the aides a cardoza to avoid this barrier. Patient denied at first, but patient's father, Elliott, told patient to call the landlord. Patient did so and patient's landlord stated the solution to patient's barrier could be having a lockbox installed that patient's aides and [facility] nurse had the code to in order to get in the apartment building. When patient hung up the phone after the landlord confirmed this would be patient's best solution, Elliott stated really liking that idea and stating that should help patient feel better about going home today. SW left the room to verify PT was called to evaluate patient. At 1450, SHIVA called PT (ext [phone]) and left a VM for Jacki. Jacki called back at 1515 and stated ability to come to the ED to assess patient in a few moments. SHIVA let ED Oncology Rep Specialist know. SW to follow as needed. Jodi Bryan, MACHINE PRECISION ENGRAVER, CHIEF RISK OFFICER
--- NOTE | 2025-10-07 16:15 | PCM.HP.STD ---
HPI - General General Date of Admission: 10/07/25 Date of Service: 10/07/25 Chief Complaint: Weakness and difficulty with ambulation HPI Narrative GARTH MACK, is a 59 F who presented to [facility] ED on 10/07/2025 with weakness and difficulty with ambulation. Medical history significant for COPD with chronic respiratory failure on 3 L, chronic HFpEF, class III obesity and schizoaffective disorder. She was recently hospitalized here in early August for worsening right upper extremity tremors. Neurology followed and she was initiated on benztropine with significant improvement. She had fairly good therapy scores during that hospitalization was able to be discharged home with home health care. She lives at home with her father. She presents today with worsening generalized weakness, shakiness and feeling like she is going to fall with ambulation. In the ED she was hemodynamically stable on her home 3 L nasal cannula and lab workup was benign. Physical therapy worked with her in the ED and noted that she was weaker than her baseline and could only ambulate 15 feet, so they recommended that patient be admitted for further evaluation. Hospitalist was then contacted for admission. I saw the patient at bedside in the ED, father was present. Patient was mildly fatigued appearing but otherwise sitting back comfortably in bed, conversing normally, in no acute distress. She denied any acute pain or discomfort currently. No other acute concerns this time. Will be admitted for further management. 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 coli infection Schizophrenia Other specified peripheral vascular diseases Chronic painful diabetic polyneuropathy Edema of both lower extremities Venous insufficiency (chronic) (peripheral) Diabetes PTSD (post-traumatic stress disorder) Depression Schizo affective schizophrenia Hypersomnia, unspecified Diabetes Left ventricular aneurysm Essential hypertension Chest pain Diabetes mellitus type 2, uncontrolled, with complications Back pain Asthma Knee pain Migraines Fatigue Hemorrhoids COPD (chronic obstructive pulmonary disease) Arthritis Pain syndrome, chronic Bipolar disorder Migraines Obstructive sleep apnea Stasis dermatitis of both legs Venous insufficiency of both lower extremities Super obese Open wound of left lower extremity GERD (gastroesophageal reflux disease) Benign hypertension ADHD (attention deficit hyperactivity disorder) Home Medications ?Medication ?Instructions ?Recorded ?Last Taken ?Type bupropion HCl 300 mg 24 hr tablet, 300 mg PO DAILY mental health 03/05/17 10/06/25 History extended release albuterol sulfate 90 mcg/actuation 2 puff inhalation Q4H PRN Sob &/Or 05/29/18 10/06/25 History aerosol inhaler Wheezing aspirin 81 mg chewable tablet 81 mg PO DAILY@0800 heart health 07/17/20 10/06/25 Rx buspirone 10 mg tablet 20 mg PO TID mood 01/25/22 10/06/25 History cetirizine 10 mg tablet (Zyrtec) 10 mg PO DAILY allergies 01/25/22 10/06/25 History guaifenesin 600 mg tablet, 1,200 mg PO BID PRN Cough 01/25/22 08/24/25 History extended release 12 hr (Mucinex) primidone 250 mg tablet 750 mg PO QHS seizures 01/25/22 10/06/25 History fluticasone 500 mcg-salmeterol 50 1 inh inhalation BID breathing 05/02/22 10/06/25 History mcg/dose blistr powdr for inhalation omeprazole 40 mg capsule,delayed 40 mg PO DAILY gerd 05/02/22 10/06/25 History release ergocalciferol (vitamin D2) 1,250 50,000 unit PO QMONTH bone health 08/10/22 04/21/25 History mcg (50,000 unit) capsule (Vitamin D2) pregabalin 150 mg capsule 150 mg PO TID pain 08/10/22 10/06/25 History ondansetron 4 mg disintegrating 4 mg PO Q8H PRN Nausea 10/03/24 08/23/25 History tablet trazodone 150 mg tablet 150 mg PO QHS sleep 10/03/24 10/06/25 History albuterol sulfate 2.5 mg/3 mL 2.5 mg inhalation Q6H PRN 02/25/25 10/06/25 History (0.083 %) solution for nebulization shortness of breath or wheezing escitalopram oxalate 20 mg tablet 20 mg PO DAILY MENTAL HEALTH 03/01/25 10/06/25 History acetaminophen 500 mg tablet 1,000 mg PO TID PAIN 04/17/25 10/06/25 History insulin lispro 100 unit/mL 1 sliding scale dose subcut 04/17/25 04/21/25 History subcutaneous pen (Humalog KwikPen USEASDIRECTD (U-100) Insulin) Held on 10/07/25. Instructions: Ordered lidocaine 4 % topical patch 1 patch topical QDAY 04/17/25 10/06/25 History (Aspercreme (lidocaine)) lisinopril 10 mg tablet 10 mg PO DAILY blood pressure 04/17/25 10/06/25 History nadolol 80 mg tablet 40 mg PO BID high blood pressure 04/17/25 10/06/25 History allopurinol 100 mg tablet 100 mg PO DAILY GOUT 04/21/25 10/06/25 History OXYGEN - Supplemental ([facility] hypoxia 08/25/25 Unknown History INFORMATIONAL USE ONLY) dicyclomine 20 mg tablet 20 mg PO TID IBS 08/25/25 10/06/25 History hydrocodone 7.5 mg-acetaminophen 1 tab PO Q6H PRN pain 08/25/25 10/06/25 History 325 mg tablet hydroxyzine pamoate 25 mg capsule 25 mg PO BID PRN itching/anxiety 08/25/25 10/06/25 History lorazepam 1 mg tablet 1 mg PO BID ANXIETY 08/25/25 10/06/25 History miconazole nitrate 2 % topical 1 applic topical BID 08/25/25 10/06/25 History cream montelukast 10 mg tablet 10 mg PO QHS ALLERGIES 08/25/25 10/06/25 History oxybutynin chloride 15 mg 15 mg PO DAILY BLADDER 08/25/25 10/06/25 History tablet,extended release 24 hr benztropine 0.5 mg tablet 0.5 mg PO BID MUSCLE SPASMS 30 08/27/25 10/06/25 Rx days #60 tabs insulin lispro 100 unit/mL 20 unit (0.2 mL) subcut ACHS DM 30 08/27/25 10/06/25 Rx subcutaneous pen days #15 mL Lactobacillus acidophilus 0.5 mg 0.5 mg PO DAILY SUPPLEMENT 10/07/25 10/06/25 History (100 million cell) tablet benzonatate 100 mg capsule 200 mg PO TID PRN cough 10/07/25 Unknown History chlorhexidine gluconate 4 % 1 applic topical DAILY PRN open 10/07/25 Unknown History topical liquid (Merary-Hex) area leg cholecalciferol (vitamin D3) 1,250 1,250 mcg PO QWEEK SUPPLEMENT 10/07/25 10/01/25 History mcg (50,000 unit) capsule insulin glargine U-300 conc 300 75 unit subcut BID BLOOD SUGAR 10/07/25 10/06/25 History unit/mL (3 mL) subcutaneous pen (Toujeo Max U-300 SoloStar) ipratropium bromide 42 mcg (0.06 2 spray intranasal 4X/DAY PRN 10/07/25 Unknown History %) nasal spray allergy symptoms lactulose 10 gram/15 mL oral 40 g PO BID constipation 10/07/25 10/06/25 History solution (Enulose) lidocaine 4 % topical cream 1 applic topical DAILY PRN pain 10/07/25 Unknown History loperamide 2 mg capsule 2 mg PO 4X/DAY PRN loose stool 10/07/25 Unknown History naratriptan 2.5 mg tablet 2.5 mg PO PRN migraine 10/07/25 Unknown History paliperidone palm (3 month) 819 819 mg IM .EVERY 3 MONTH MOOD 10/07/25 Unknown History mg/2.63 mL intramuscular syringe (BOS [employer]) semaglutide 0.25 mg or 0.5 mg (2 0.25 mg subcut QWEEK BLOOD SUGAR 10/07/25 Unknown History mg/3 mL) subcutaneous pen injector (Ozempic) tizanidine 4 mg tablet 4 mg PO BID PRN muscle spasticity 10/07/25 Unknown History trospium 20 mg tablet 20 mg PO BID BLADDER 10/07/25 10/06/25 History Allergy/AdvReac Type Severity Reaction Status Date / Time meloxicam Allergy Severe Anaphylaxis Verified 10/07/25 10:07 vancomycin Allergy Severe BURNING Verified 10/07/25 10:07 RED RASH ON LEGGS amlodipine (From Norvasc) Allergy Swelling Verified 10/07/25 10:07 cefazolin sodium (From Ancef) Allergy Hives Verified 10/07/25 10:07 fexofenadine (From Nia) Allergy Shortness Verified 10/07/25 10:07 of breath nitrofurantoin (From Allergy Hives Verified 10/07/25 10:07 Macrobid) Penicillins Allergy Hives Verified 10/07/25 10:07 sumatriptan (From Imitrex) Allergy Shortness Verified 10/07/25 10:07 of breath adhesive AdvReac BURNING Verified 10/07/25 10:07 amitriptyline (From Elavil) AdvReac Other Verified 10/07/25 10:07 clindamycin AdvReac Diarrhea Verified 10/07/25 10:07 ziprasidone (From Geodon) AdvReac NEEDS Verified 10/07/25 10:07 FOLLOW-UP Family History Father CVA (cerebral vascular accident) Heart disease Mother Heart disease Surgical History History of elbow surgery (~06/2020) History of arthroscopic knee surgery History of left heart catheterization (07/16/20) Kidney stone H/O hernia repair Hx of hysterectomy Hx of section Social History household members: family housing: house Smoking Status: Never smoker alcohol intake: never substance use type: does not use caffeine: Yes (occasionally) ROS Constitutional Constitutional: Reports fatigue and weakness; Denies chills or fever(s) Eyes Eyes: Denies change in vision Cardiovascular Cardiovascular: Denies chest pain Respiratory/Chest Respiratory/Chest: Denies shortness of breath at rest Gastrointestinal Gastrointestinal: Denies abdominal pain Musculoskeletal Musculoskeletal: Denies arthralgias, joint pain or myalgias Neurologic Neurologic: Denies dizziness, focal weakness, headache(s), numbness or tingling Vital Signs Vital Signs Vital Signs: 10/07/25 10:03 10/07/25 10:33 10/07/25 11:19 Temperature 98.8 F Temperature Source Oral Pulse Rate 76 Respiratory Rate 19 H Respiratory Effort Normal Respiratory Pattern Normal Blood Pressure 121/92 H Blood Pressure Mean 101 Pulse Ox 100 100 Oxygen Delivery Method Room Air Oxygen Flow Rate (L/min) 10/07/25 11:21 10/07/25 11:30 10/07/25 11:45 Temperature Temperature Source Pulse Rate Respiratory Rate Respiratory Effort Respiratory Pattern Blood Pressure 161/84 H Blood Pressure Mean 103 Pulse Ox 100 100 99 Oxygen Delivery Method Nasal Cannula Oxygen Flow Rate (L/min) 3 10/07/25 12:01 10/07/25 12:15 10/07/25 12:30 Temperature Temperature Source Pulse Rate Respiratory Rate Respiratory Effort Respiratory Pattern Blood Pressure Blood Pressure Mean Pulse Ox 100 100 100 Oxygen Delivery Method Oxygen Flow Rate (L/min) 10/07/25 12:45 10/07/25 13:00 10/07/25 13:15 Temperature Temperature Source Pulse Rate Respiratory Rate Respiratory Effort Respiratory Pattern Blood Pressure Blood Pressure Mean Pulse Ox 100 100 98 Oxygen Delivery Method Oxygen Flow Rate (L/min) 10/07/25 13:30 10/07/25 13:45 10/07/25 14:00 Temperature Temperature Source Pulse Rate Respiratory Rate Respiratory Effort Respiratory Pattern Blood Pressure Blood Pressure Mean Pulse Ox 100 100 98 Oxygen Delivery Method Oxygen Flow Rate (L/min) 10/07/25 14:15 10/07/25 14:30 10/07/25 14:45 Temperature Temperature Source Pulse Rate Respiratory Rate Respiratory Effort Respiratory Pattern Blood Pressure Blood Pressure Mean Pulse Ox 100 100 99 Oxygen Delivery Method Oxygen Flow Rate (L/min) 10/07/25 15:00 10/07/25 15:15 10/07/25 15:30 Temperature Temperature Source Pulse Rate 70 Respiratory Rate Respiratory Effort Respiratory Pattern Blood Pressure 141/98 H Blood Pressure Mean 112 Pulse Ox 98 100 100 Oxygen Delivery Method Oxygen Flow Rate (L/min) 10/07/25 15:47 10/07/25 15:48 10/07/25 16:00 Temperature Temperature Source Pulse Rate Respiratory Rate Respiratory Effort Respiratory Pattern Blood Pressure 169/94 H 141/98 H Blood Pressure Mean 102 112 Pulse Ox 94 94 100 Oxygen Delivery Method Oxygen Flow Rate (L/min) 10/07/25 16:01 Temperature Temperature Source Pulse Rate Respiratory Rate Respiratory Effort Respiratory Pattern Blood Pressure Blood Pressure Mean Pulse Ox 100 Oxygen Delivery Method Oxygen Flow Rate (L/min) 3 Weight Weight: 142.4 kg Body Mass Index (BMI) 52.2 Physical Exam Const alert, oriented x3 and no apparent distress Constitutional Narrative: Upper middle-age female, class III obesity, mildly fatigued appearing, flat affect noted, otherwise sitting back comfortably in bed and answering questions appropriately, in no acute distress. General Appearance: cooperative and comfortable HEENT normocephalic, head/scalp atraumatic, hearing grossly normal bilaterally, nasal mucous membranes and turbinates normal and moist oral mucous membranes Eyes PERRL, EOMs intact bilaterally and conjunctivae normal Neck full ROM Chest inspection of chest normal Resp normal respiratory effort, normal air movement, no use of accessory muscles and clear to auscultation bilaterally Cardio regular rate, regular rhythm, no murmurs and peripheral pulses 2+ throughout GI normal to inspection, nondistended, normoactive bowel sounds, soft to palpation, non-tender and non-distended Back/Spine normal ROM Extremity normal to inspection and no pedal edema Skin no rashes or lesions noted Neuro Neuro Narrative: Generalized weakness in the legs noted. Psych mental status grossly normal Psych Narrative: Flat affect noted. Results Lab / Micro Data 10/07/25 10:30 10/07/25 10:30 Labs: Laboratory Results - last 24 hr 10/07/25 10:30: WBC 6.4, RBC 3.57 L, Hgb 10.7 L, Hct 34.3 L, MCV 96.1, MCH 30.0, MCHC 31.2 L, RDW Std Deviation 48.3 H, RDW Coeff of Jocy 13.8, Plt Count 167, MPV 9.5, Immature Gran % (Auto) 0.600, Neut % (Auto) 79.3 H, Lymph % (Auto) 12.7 L, [place] % (Auto) 7.2, Eos % (Auto) 0.0, Baso % (Auto) 0.2, Absolute Neuts (auto) 5.1, Absolute Lymphs (auto) 0.81 L, Nucleated RBC % 0, Sodium 140, Potassium 5.6 H, Chloride 100, Carbon Dioxide 29.8, Anion Gap 10, BUN 25 H, Creatinine 0.72, Estim Creat Clear Calc 118.08, Est GFR (MDRD) Non-Af 95, BUN/Creatinine Ratio 34.1 H, Glucose 141 H, Calcium 9.5, Total Bilirubin 0.22, AST 26, ALT 20, Alkaline Phosphatase 52, NT pro BNP II 159, Total Protein 7.1, Albumin 3.7, Globulin 3.4, Albumin/Globulin Ratio 1.1 10/07/25 11:34: Urine Color Yellow, Urine Clarity Clear, Urine pH 6.0, Ur Specific [place] 1.025, Urine Protein 30 H, Urine Glucose (UA) Normal, Urine Ketones Negative, Urine Occult Blood Negative, Urine Nitrite Negative, Urine Bilirubin Negative, Urine Urobilinogen Normal, Ur Leukocyte Esterase 25 H, Urine RBC 0 SEEN, Urine WBC 0-5 SEEN, Ur Squamous Epith Cells 0-5 SEEN, Urine Bacteria 0 SEEN, Urine Mucus 0 SEEN, Urine Yeast RARE Imaging Radiology Impression Chest X-Ray 10/07/25 10:45 IMPRESSION: Mild degree of vascular congestion. Borderline cardiomegaly. Reading Location: [id number] Assessment & Plan Assessment/Plan (1) Weakness: (2) Difficulty in walking: PLAN: Plan Patient is a 59-year-old female who presented to [facility] ED on 10/07/2025 with worsening weakness and difficulty with ambulation. 1. Acute on chronic debility and difficulty with ambulation ? Admit under observation status to [facility]. PT/OT/case management consulted. Lives at home with her dad, uses rollator for ambulation at baseline. Has had worsening weakness with shakiness and difficulty with ambulation for the past few days. ED workup unremarkable. PT evaluated in the ED and she was only able to ambulate 15 feet and was weaker than her baseline. May need SNF placement at discharge. Appreciate further therapy recommendations. Chronic medical conditions: ? Class III obesity with suspected ABRAM: BMI 51 on admit. Complicates hospital course and care. Has been referred for outpatient sleep study but has not been able to do this yet. Continue home nasal cannula at night. ? Right upper extremity tremors. Recent hospitalization in early August for this. Neurology followed and symptoms improved on benztropine. Continue home benztropine and primidone. ? Chronic left foot wound: Follows with podiatry. Dr. Lewis saw her during hospitalization in early August and performed a bedside debridement. Has had dressing changes daily done since then with wound care/home health care. Wound care consulted for assistance with dressing changes. ? COPD with chronic hypoxic respiratory failure: Stable on home 3 L nasal cannula at this time. Continue home inhalers. ? Chronic HFpEF, hypertension: Mildly hypertensive to the 140s systolic on admit. Continue home lisinopril and nadolol. ? Type 2 diabetes mellitus with neuropathy: Blood glucose 141 on admit. Most recent A1c 12.4% on 08/26. Patient reports improved glucose control with adherence to home insulin regimen. Treat with reduced home regimen here of Lantus 60 units twice daily and Humalog 12 units with meals plus sliding scale insulin, adjust as needed. Continue home pregabalin. ? Schizoaffective disorder: Stable. Continue home bupropion, BuSpar, escitalopram, and lorazepam. ? GERD: Continue home PPI. ? Overactive bladder: Continue home oxybutynin. DVT prophylaxis: Lovenox twice daily CODE STATUS: Full code, verified Expected disposition: TBD Total clinical time spent by myself addressing the patient's medical issues, reviewing all the data, and collaborating with patient's care team: 79 minutes. Charges/Coding Visit Charges Inpatient E&M: 21140 Init Hosp L3
--- NOTE | 2025-10-07 16:30 | CM.ED ---
Social work PT evaluation reportedly stated patient should be admitted. SW reentered patient's room and talked with patient and patient's father, Elliott, again. Patient stated being thankful for PT's evaluation as patient was still scared to go home alone. Patient updated patient's initial assessment (in Social Service note) with SW. SW asked what patient goals were upon discharge. Patient stated understanding patient needed to go to a SNF for rehab rather than just go home with [facility]. Patient appeared tearful as patient's father stated desire to see patient get stronger and be safe upon return home. Patient stated desiring to go to [facility] and adamantly stated patient would go home before going back to [facility]. Patient wishes will be passed along to acute SW/RNCM team. Patient denied further needs at this time. Jodi Bryan, TURNTABLE ENGINEER, SUPERINTENDENT TESTS
--- NOTE | 2025-10-07 16:35 | CASEMGMT ---
Care Management Face to Face with patient for initial transition planning/care coordination assessment in the ED. This marketing writer introduced self and role at [facility]. Patient alert and oriented. Patient willing to participate in assessment and is able to answer all questions appropriately. Patient's father, Elliott, at bedside. Care providers, pharmacy, and demographics verified. Admitting Diagnosis: weakness/debility Other diagnosis history: heart failure with preserved EF, iron deficiency anemia, type 2 diabetes mellitus and tardive dyskinesia PCP: Luciano Specialists: Allen, pulmonology. Joshua, podiatry. Karina, oncology. Preferred Pharmacy: [facility] (delivery and prepackaged) Insurance: Medicaid Prescription Benefit: yes Living Will/HPOA: none, but patient would like to complete during admission. LNOK: father Elliott. 5 sisters (2 local, 3 out of town). Living Arrangements: lives alone in a single story apartment with no steps to enter. Patient reports to have aide services through [facility]; Mon-Sat, 4-6 hours at a time. Patient reports to be able to get to the bathroom on own, but has aides that help with ADLs/IADLs. Transportation: patient's father drives patient DME: all diabetic supplies including a blood glucose monitor. Wheeled walker, rollator, grab bars, shower chair, med alert system. O2 through [employer] is 3lpm at rest, 5lpm with ambulation, and has portability. HHC: [facility] in past. [facility]. SNF/Rehab: [facility] in past (does not want to return). Would like [place], [facility], or [place] (in that order). Patient's father mentioned J[facility] yolande and patient was not certain at this point in time. Behavioral Health History: anxiety, depression, and schizoaffective disorder. Reports to be medication compliant. Reports to see a psychiatrist at [facility]. Reports to have a welfare case worker and a counselor through [facility]. Patient goals: Patient wishes to discharge home, but is agreeable to SNF. Patient states wanting to go home after SNF due to not wanting to live in a facility forever. Patient denies any further needs or concerns at this time. Direction Home CM is still Richa Jaime (ph: [phone], ext. [phone]). Disposition Plan: admission to acute; RN CM/SW to follow for discharge planning needs that may arise. Jodi Bryan, SECOND HAND, HOG KILLER
[2025-10-07] MEDS: Budesonide Respules 0.5 MG/2 ML AMPUL.NEB. INHALATION (19:19)
[2025-10-07] MEDS: Albuterol 2.5 MG/3 ML VIAL.NEB. INHALATION (19:19)
[2025-10-07] MEDS: 0.9% Saline Lock 10 ML Syringe IV (22:54)
[2025-10-08] VITALS (8 sets, daily range): BP systolic 121–126; BP diastolic 51–72; PULSE 67–78; RESP 16–20; TEMP 36–36.8; O2SAT 95–100
[2025-10-08 06:13] LABS: Hematocrit 30.2 % (37-47); Hemoglobin 9.3 g/dL (12.0-15.0); Mean Corp Hgb Conc 30.8 g/dL (32-36); Mean Corpuscular Volume 93.8 fL (81-99); Mean Platelet Vol. 9.7 fl (6.2-12.0); Platelet Count 140 K/mm3 (150-450); RBC Distribution Width CV 13.3 % (11.6-14.6); RBC Distribution Width SD 45.8 fl (35.1-43.9); Red Blood Count 3.22 M/mm3 (4.2-5.4); White Blood Count 4.9 K/mm3 (4.4-11.0)
[2025-10-08 06:49] LABS: Anion Gap 6 (5-15); BUN 18 mg/dL (4-19); BUN/Creat Ratio 27.1 RATIO (10-20); Calcium,Total 9.0 mg/dL (7.6-11.0); Carbon Dioxide 32.1 mmol/L (21.0-32.0); Chloride 98 mmol/L (98-108); Estimated Creatinine Clearance 123.14 ml/min (50-250); Glucose 152 mg/dL (70-99); Potassium 4.7 mmol/L (3.3-5.1)
[2025-10-08] MEDS: Albuterol 2.5 MG/3 ML VIAL.NEB. INHALATION ×3 (07:25→19:45)
[2025-10-08] MEDS: Budesonide Respules 0.5 MG/2 ML AMPUL.NEB. INHALATION ×2 (07:25→19:46)
--- NOTE | 2025-10-08 08:00 | PN.HOSP_ITS ---
Reason for Visit Chief Complaint: Weakness and difficulty with ambulation Subjective Subjective Still feelilng weak. Objective Data Objective Data Vital Signs: Vital Signs Temp Pulse Resp BP Pulse Ox O2 Del Method O2 Flow Rate 36.6 C 67 18 124/62 H 100 Nasal Cannula 3 10/08/25 04:54 10/08/25 04:54 10/08/25 04:54 10/08/25 04:54 10/08/25 04:54 10/08/25 04:54 10/08/25 04:54 Oxygen Flow Rate (L/min) 3 Oxygen Delivery Method Nasal Cannula Weight: 139.1 kg Body Mass Index (BMI) 51.0 Lab / Micro Data 10/08/25 05:57 10/08/25 05:57 Labs: Laboratory Results - last 24 hr 10/07/25 10:30: WBC 6.4, RBC 3.57 L, Hgb 10.7 L, Hct 34.3 L, MCV 96.1, MCH 30.0, MCHC 31.2 L, RDW Std Deviation 48.3 H, RDW Coeff of Jocy 13.8, Plt Count 167, MPV 9.5, Immature Gran % (Auto) 0.600, Neut % (Auto) 79.3 H, Lymph % (Auto) 12.7 L, Dillon % (Auto) 7.2, Eos % (Auto) 0.0, Baso % (Auto) 0.2, Absolute Neuts (auto) 5.1, Absolute Lymphs (auto) 0.81 L, Nucleated RBC % 0, Sodium 140, Potassium 5.6 H, Chloride 100, Carbon Dioxide 29.8, Anion Gap 10, BUN 25 H, Creatinine 0.72, Estim Creat Clear Calc 118.08, Est GFR (MDRD) Non-Af 95, BUN/Creatinine Ratio 34.1 H, Glucose 141 H, Calcium 9.5, Total Bilirubin 0.22, AST 26, ALT 20, Alkaline Phosphatase 52, NT pro BNP II 159, Total Protein 7.1, Albumin 3.7, Globulin 3.4, Albumin/Globulin Ratio 1.1 10/07/25 11:34: Urine Color Yellow, Urine Clarity Clear, Urine pH 6.0, Ur Specific [place] 1.025, Urine Protein 30 H, Urine Glucose (UA) Normal, Urine Ketones Negative, Urine Occult Blood Negative, Urine Nitrite Negative, Urine Bilirubin Negative, Urine Urobilinogen Normal, Ur Leukocyte Esterase 25 H, Urine RBC 0 SEEN, Urine WBC 0-5 SEEN, Ur Squamous Epith Cells 0-5 SEEN, Urine Bacteria 0 SEEN, Urine Mucus 0 SEEN, Urine Yeast RARE 10/07/25 18:17: POC Glucose 153 H 10/07/25 22:50: POC Glucose 121 H 10/08/25 05:57: WBC 4.9, RBC 3.22 L, Hgb 9.3 L, Hct 30.2 L, MCV 93.8, MCH 28.9, MCHC 30.8 L, RDW Std Deviation 45.8 H, RDW Coeff of Jocy 13.3, Plt Count 140 L, MPV 9.7, Sodium 136, Potassium 4.7, Chloride 98, Carbon Dioxide 32.1 H, Anion Gap 6, BUN 18, Creatinine 0.67 L, Estim Creat Clear Calc 123.14, Est GFR (MDRD) Non-Af 99, BUN/Creatinine Ratio 27.1 H, Glucose 152 H, Calcium 9.0 10/08/25 06:36: POC Glucose 161 H Radiography Diagnostic Testing: Radiology Impression Chest X-Ray 10/07/25 10:45 IMPRESSION: Mild degree of vascular congestion. Borderline cardiomegaly. Reading Location: [id number] Rhythm Strip Rhythm Strip: Sinus Rhythm Rate: 67 Ectopy: None Physical Exam Const alert and no apparent distress Constitutional Narrative: non toxic. on commode. HEENT head/scalp atraumatic and moist oral mucous membranes Assessment & Plan Assessment/Plan (1) Weakness: (2) Difficulty in walking: PLAN: Plan Acute on chronic debility and difficulty with ambulation * PT/OT/case management consulted. * Lives at home with her dad, uses rollator for ambulation at baseline. Has had worsening weakness with shakiness and difficulty with ambulation for the past few days. ED workup unremarkable. * PT evaluated in the ED and she was only able to ambulate 15 feet and was weaker than her baseline. May need SNF placement at discharge. Appreciate further therapy recommendations. * Referral sent to [facility]. Chronic medical conditions: ? Class III obesity with suspected ABRAM: BMI 51 on admit. Complicates hospital course and care. Has been referred for outpatient sleep study but has not been able to do this yet. Continue home nasal cannula at night. ? Right upper extremity tremors. Recent hospitalization in early August for this. Neurology followed and symptoms improved on benztropine. Continue home benztropine and primidone. ? Chronic left foot wound: Follows with podiatry. Dr. Lewis saw her during hospitalization in early August and performed a bedside debridement. Has had dressing changes daily done since then with wound care/home health care. Wound care consulted for assistance with dressing changes. ? COPD with chronic hypoxic respiratory failure: Stable on home 3 L nasal cannula at this time. Continue home inhalers. ? Chronic HFpEF, hypertension: Mildly hypertensive to the 140s systolic on admit. Continue home lisinopril and nadolol. ? Type 2 diabetes mellitus with neuropathy: Blood glucose 141 on admit. Most recent A1c 12.4% on 08/26. Patient reports improved glucose control with adherence to home insulin regimen. Treat with reduced home regimen here of Lantus 60 units twice daily and Humalog 12 units with meals plus sliding scale insulin, adjust as needed. Continue home pregabalin. ? Schizoaffective disorder: Stable. Continue home bupropion, BuSpar, escitalopram, and lorazepam. ? GERD: Continue home PPI. ? Overactive bladder: Continue home oxybutynin. DVT prophylaxis: Lovenox twice daily CODE STATUS: Full code, verified Expected disposition: TBD Charges/Coding Visit Charges Inpatient E&M: 82929 [facility] Hosp L1
[2025-10-08] MEDS: Lactobacillis Acidophilus 1 CAP PO (08:59)
[2025-10-08] MEDS: Tolterodine Tartrate 4 MG CAP.SA PO (08:59)
[2025-10-08] MEDS: Lidocaine 5% Patch 1 PATCH TOPICAL (08:59)
[2025-10-08] MEDS: buPROPion (XL) 300 MG TABLET.XL PO (08:59)
[2025-10-08] MEDS: Insulin Glargine-YFGN 100 UNIT/ML Pen 60 UNIT SC ×2 (09:01→22:06)
--- NOTE | 2025-10-08 10:08 | CASEMGMT ---
Discharge Planning A list of?SNF providers including quality and resource use data and consistent with the patient's preferred geographic region, medical needs, and insurance network was created in [facility]Port Guide.? This list was provided to the SW. Nat Gtz Discharge Planning Asst.
[2025-10-08] MEDS: Fluticasone 0.05% 1 SPRAY NASAL.SRY NASAL ×2 (11:26→21:56)
--- NOTE | 2025-10-08 13:00 | CASEMGMT ---
Social Work SW received handoff from ED SW. Pt is requesting short term SNF placement for rehab prior to return home alone. SW met with pt and her father and introduced self and role of SW. Pt confirmed plan to go to SNF at time of dc for short term rehab. A list of SNF providers including quality and resource use data and consistent with the patient?s preferred geographic region, medical needs, and insurance network were provided from the CarePort Guide. Pt preferred providers are 1. [facility] 2. [facility] 3. [facility]. SW reviewed mental health questions on PASRR with pt. Pt has ongoing mental health case management, however no other indications of SMI at this time. Pt has a Passport Central Service Tech through [facility], Richa Tam. SW left VM with Richa regarding pt's admission to the hospital. SW to fax dc orders and plan/date to Richa at time of discharge. Referral sent to [facility] via [facility]. SW await determination of acceptance. Level of Care will need to be obtained once an accepting facility has been established. Plan: [facility], pending acceptance MADAN Sandra
--- NOTE | 2025-10-08 16:06 | CASEMGMT ---
Discharge Planning [facility] declined referral. Referral sent via [facility]Port to pts second choice, [facility]. Nat Gtz DC Planning Asst.
--- NOTE | 2025-10-08 16:43 | PCM.CONS.GEN ---
Assessment & Plan Assessment/Plan (1) Type 2 diabetes mellitus with other skin ulcer: QUALIFIERS: Diabetes mellitus mcc insulin use: with intermediate project manager use Qualified Code(s): E11.622 - Type 2 diabetes mellitus with other skin ulcer; Z79.4 - intermediate (current) use of insulin PLAN: Patient was examined and evaluated. All findings were discussed with the patient. All questions were answered to the patient satisfaction. Excisional debridement down to including subcutaneous tissue with a number 3 mm dermal curette to the left leg proximal full-thickness wound done without incident. Predebridement measurement was sanguinous crust. Postdebridement measures 1.2 x 1.0 x 0.1 cm. The left lower extremities were cleaned and patted dry. Aquacel Ag followed by dry sterile dressing and Silvestre wrap were donned to left lower extremity. Wound care nurse will change daily, with Dakin solution. No plan for surgical intervention on this hospitalization. WBC: 4.9 ESR: 36 CRP: 37.7 Glucose: 152 Medicine: On board, medical management PT/OT: Consult pending Please reach out to Dr. Lewis with any questions or concerns. Thank you for the consultation. (2) Difficulty in walking: HPI Consult Data Date of Consult: 10/08/25 HPI Narrative Reason for Consultation: Left leg ulcer HPI Narrative: GARTH MACK, is a 59 female with history of heart failure with preserved EF, iron deficiency anemia, type 2 diabetes mellitus and tardive dyskinesia presenting for evaluation of generalized weakness and feeling she is going to fall. Patient states that she is starting to feel more shaky and had weakness when walking and standing for long periods of time even though she uses a rollator for assistance. Patient states that she was having trouble walking 5 to 10 feet at home without feeling like she was going to a fall or have her legs give out. She does admit to some increase in shortness of breath as well as generalized weakness resulting for her presents in the emergency room. Podiatry was consulted for wound care management for the left leg ulcer. 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 coli infection Schizophrenia Other specified peripheral vascular diseases Chronic painful diabetic polyneuropathy Edema of both lower extremities Venous insufficiency (chronic) (peripheral) Diabetes PTSD (post-traumatic stress disorder) Depression Schizo affective schizophrenia Hypersomnia, unspecified Diabetes Left ventricular aneurysm Essential hypertension Chest pain Diabetes mellitus type 2, uncontrolled, with complications Back pain Asthma Knee pain Migraines Fatigue Hemorrhoids COPD (chronic obstructive pulmonary disease) Arthritis Pain syndrome, chronic Bipolar disorder Migraines Obstructive sleep apnea Stasis dermatitis of both legs Venous insufficiency of both lower extremities Super obese Open wound of left lower extremity GERD (gastroesophageal reflux disease) Benign hypertension ADHD (attention deficit hyperactivity disorder) Home Medications ?Medication ?Instructions ?Recorded ?Last Taken ?Type bupropion HCl 300 mg 24 hr tablet, 300 mg PO DAILY mental health 03/05/17 10/06/25 History extended release albuterol sulfate 90 mcg/actuation 2 puff inhalation Q4H PRN Sob &/Or 05/29/18 10/06/25 History aerosol inhaler Wheezing aspirin 81 mg chewable tablet 81 mg PO DAILY@0800 heart health 07/17/20 10/06/25 Rx buspirone 10 mg tablet 20 mg PO TID mood 01/25/22 10/06/25 History cetirizine 10 mg tablet (Zyrtec) 10 mg PO DAILY allergies 01/25/22 10/06/25 History guaifenesin 600 mg tablet, 1,200 mg PO BID PRN Cough 01/25/22 08/24/25 History extended release 12 hr (Mucinex) primidone 250 mg tablet 750 mg PO QHS seizures 01/25/22 10/06/25 History fluticasone 500 mcg-salmeterol 50 1 inh inhalation BID breathing 05/02/22 10/06/25 History mcg/dose blistr powdr for inhalation omeprazole 40 mg capsule,delayed 40 mg PO DAILY gerd 05/02/22 10/06/25 History release ergocalciferol (vitamin D2) 1,250 50,000 unit PO QMONTH bone health 08/10/22 04/21/25 History mcg (50,000 unit) capsule (Vitamin D2) pregabalin 150 mg capsule 150 mg PO TID pain 08/10/22 10/06/25 History ondansetron 4 mg disintegrating 4 mg PO Q8H PRN Nausea 10/03/24 08/23/25 History tablet trazodone 150 mg tablet 150 mg PO QHS sleep 10/03/24 10/06/25 History albuterol sulfate 2.5 mg/3 mL 2.5 mg inhalation Q6H PRN 02/25/25 10/06/25 History (0.083 %) solution for nebulization shortness of breath or wheezing escitalopram oxalate 20 mg tablet 20 mg PO DAILY MENTAL HEALTH 03/01/25 10/06/25 History acetaminophen 500 mg tablet 1,000 mg PO TID PAIN 04/17/25 10/06/25 History insulin lispro 100 unit/mL 1 sliding scale dose subcut 04/17/25 04/21/25 History subcutaneous pen (Humalog KwikPen USEASDIRECTD (U-100) Insulin) Held on 10/07/25. Instructions: MD Ordered lidocaine 4 % topical patch 1 patch topical QDAY 04/17/25 10/06/25 History (Aspercreme (lidocaine)) lisinopril 10 mg tablet 10 mg PO DAILY blood pressure 04/17/25 10/06/25 History nadolol 80 mg tablet 40 mg PO BID high blood pressure 04/17/25 10/06/25 History allopurinol 100 mg tablet 100 mg PO DAILY GOUT 04/21/25 10/06/25 History OXYGEN - Supplemental ([facility] hypoxia 08/25/25 Unknown History INFORMATIONAL USE ONLY) dicyclomine 20 mg tablet 20 mg PO TID IBS 08/25/25 10/06/25 History hydrocodone 7.5 mg-acetaminophen 1 tab PO Q6H PRN pain 08/25/25 10/06/25 History 325 mg tablet hydroxyzine pamoate 25 mg capsule 25 mg PO BID PRN itching/anxiety 08/25/25 10/06/25 History lorazepam 1 mg tablet 1 mg PO BID ANXIETY 08/25/25 10/06/25 History miconazole nitrate 2 % topical 1 applic topical BID 08/25/25 10/06/25 History cream montelukast 10 mg tablet 10 mg PO QHS ALLERGIES 08/25/25 10/06/25 History oxybutynin chloride 15 mg 15 mg PO DAILY BLADDER 08/25/25 10/06/25 History tablet,extended release 24 hr benztropine 0.5 mg tablet 0.5 mg PO BID MUSCLE SPASMS 30 08/27/25 10/06/25 Rx days #60 tabs insulin lispro 100 unit/mL 20 unit (0.2 mL) subcut ACHS DM 30 08/27/25 10/06/25 Rx subcutaneous pen days #15 mL Lactobacillus acidophilus 0.5 mg 0.5 mg PO DAILY SUPPLEMENT 10/07/25 10/06/25 History (100 million cell) tablet benzonatate 100 mg capsule 200 mg PO TID PRN cough 10/07/25 Unknown History chlorhexidine gluconate 4 % 1 applic topical DAILY PRN open 10/07/25 Unknown History topical liquid (Merary-Hex) area leg cholecalciferol (vitamin D3) 1,250 1,250 mcg PO QWEEK SUPPLEMENT 10/07/25 10/01/25 History mcg (50,000 unit) capsule insulin glargine U-300 conc 300 75 unit subcut BID BLOOD SUGAR 10/07/25 10/06/25 History unit/mL (3 mL) subcutaneous pen (Toujeo Max U-300 SoloStar) ipratropium bromide 42 mcg (0.06 2 spray intranasal 4X/DAY PRN 10/07/25 Unknown History %) nasal spray allergy symptoms lactulose 10 gram/15 mL oral 40 g PO BID constipation 10/07/25 10/06/25 History solution (Enulose) lidocaine 4 % topical cream 1 applic topical DAILY PRN pain 10/07/25 Unknown History loperamide 2 mg capsule 2 mg PO 4X/DAY PRN loose stool 10/07/25 Unknown History naratriptan 2.5 mg tablet 2.5 mg PO PRN migraine 10/07/25 Unknown History paliperidone palm (3 month) 819 819 mg IM .EVERY 3 MONTH MOOD 10/07/25 Unknown History mg/2.63 mL intramuscular syringe (Invega Trinza) semaglutide 0.25 mg or 0.5 mg (2 0.25 mg subcut QWEEK BLOOD SUGAR 10/07/25 Unknown History mg/3 mL) subcutaneous pen injector (Ozempic) tizanidine 4 mg tablet 4 mg PO BID PRN muscle spasticity 10/07/25 Unknown History trospium 20 mg tablet 20 mg PO BID BLADDER 10/07/25 10/06/25 History valbenazine 40 mg capsule 40 mg PO QHS 10/08/25 Unknown History (Ingrezza) Allergy/AdvReac Type Severity Reaction Status Date / Time meloxicam Allergy Severe Anaphylaxis Verified 10/07/25 10:07 vancomycin Allergy Severe BURNING Verified 10/07/25 10:07 RED RASH ON LEGGS amlodipine (From Norvasc) Allergy Swelling Verified 10/07/25 10:07 cefazolin sodium (From Ancef) Allergy Hives Verified 10/07/25 10:07 fexofenadine (From Nia) Allergy Shortness Verified 10/07/25 10:07 of breath nitrofurantoin (From Allergy Hives Verified 10/07/25 10:07 Macrobid) Penicillins Allergy Hives Verified 10/07/25 10:07 sumatriptan (From Imitrex) Allergy Shortness Verified 10/07/25 10:07 of breath adhesive AdvReac BURNING Verified 10/07/25 10:07 amitriptyline (From Elavil) AdvReac Other Verified 10/07/25 10:07 clindamycin AdvReac Diarrhea Verified 10/07/25 10:07 ziprasidone (From Geodon) AdvReac NEEDS Verified 10/07/25 10:07 FOLLOW-UP Family History Father CVA (cerebral vascular accident) Heart disease Mother Heart disease Surgical History History of elbow surgery (~06/2020) History of arthroscopic knee surgery History of left heart catheterization (07/16/20) Kidney stone H/O hernia repair Hx of hysterectomy Hx of section Social History household members: family housing: house Smoking Status: Never smoker alcohol intake: never substance use type: does not use caffeine: Yes (occasionally) Physical Exam Narrative Vascular: DP and PT pulses are palpable to the left lower extremity. CFT is brisk. Skin temperature is warm to warm from proximal ankle to distal digits to left lower extremity. No focal increase is appreciated. No erythema. Neurological: Light touch is intact. Protective station is diminished. Dermatological: Evidence of full-thickness wound to the proximal left leg measuring 1.2 x 1.0 x 0.1 cm. Wound base is granular nature. No sign of infection. No erythema. Excisional debridement down to including subcutaneous tissue with a number 3 mm dermal curette to the left leg proximal full-thickness wound done without incident. Predebridement measurement was sanguinous crust. Postdebridement measures 1.2 x 1.0 x 0.1 cm. Musculoskeletal: Muscle strength is 5 out of 5 in all quadrants left lower extremity. No pain to palpation to full-thickness wound to the proximal left leg. No pain with calf pressure. Lab / Micro Data 10/08/25 05:57 10/08/25 05:57 Labs: Laboratory Results - last 24 hr 10/07/25 18:17: POC Glucose 153 H 10/07/25 22:50: POC Glucose 121 H 10/08/25 05:57: WBC 4.9, RBC 3.22 L, Hgb 9.3 L, Hct 30.2 L, MCV 93.8, MCH 28.9, MCHC 30.8 L, RDW Std Deviation 45.8 H, RDW Coeff of Jocy 13.3, Plt Count 140 L, MPV 9.7, Sodium 136, Potassium 4.7, Chloride 98, Carbon Dioxide 32.1 H, Anion Gap 6, BUN 18, Creatinine 0.67 L, Estim Creat Clear Calc 123.14, Est GFR (MDRD) Non-Af 99, BUN/Creatinine Ratio 27.1 H, Glucose 152 H, Calcium 9.0 10/08/25 06:36: POC Glucose 161 H 10/08/25 11:20: POC Glucose 202 H Rhythm Strip Rhythm Strip: Sinus Rhythm Rate: 67 Ectopy: None
[2025-10-08] MEDS: VALBENAZINE TOSYLATE 40 MG CAPSULE PO (22:04)
[2025-10-09 06:25] VITALS: BP 110/65; PULSE 65; RESP 16; TEMP 36.6; O2SAT 100
[2025-10-09] MEDS: HYDROcodone Bitartrate/Apap 5/325 Tablet PO (06:44)
[2025-10-09] MEDS: Budesonide Respules 0.5 MG/2 ML AMPUL.NEB. INHALATION (07:06)
[2025-10-09] MEDS: Albuterol 2.5 MG/3 ML VIAL.NEB. INHALATION ×2 (07:06→13:02)
[2025-10-09 07:07] VITALS: PULSE 64; RESP 18; O2SAT 98
--- NOTE | 2025-10-09 07:15 | PCM.PN.HOSP ---
Reason for Visit Chief Complaint: Weakness and difficulty with ambulation Subjective Subjective Complaining of tremulousness of her extremities. Had seen her psychiatrist who started her on Ingrezza 1 month ago. Objective Data Objective Data Vital Signs: Vital Signs Temp Pulse Resp BP Pulse Ox O2 Del Method O2 Flow Rate 36.6 C 64 18 110/65 98 Nasal Cannula 3 10/09/25 06:25 10/09/25 07:07 10/09/25 07:07 10/09/25 06:25 10/09/25 07:07 10/09/25 07:07 10/09/25 07:07 Oxygen Flow Rate (L/min) 3 Oxygen Delivery Method Nasal Cannula Weight: 139.1 kg Body Mass Index (BMI) 51.0 Intake & Output: Intake and Output for Last 24 Hours 10/07/25 10/08/25 10/09/25 23:59 23:59 23:59 Intake Total 200 / 200 Balance 200 / 200 Lab / Micro Data 10/08/25 05:57 10/08/25 05:57 Labs: Laboratory Results - last 24 hr 10/08/25 11:20: POC Glucose 202 H 10/08/25 16:32: POC Glucose 158 H 10/08/25 22:05: POC Glucose 184 H 10/09/25 06:28: POC Glucose 143 H Rhythm Strip Rhythm Strip: Sinus Rhythm Rate: 67 Ectopy: None Physical Exam Const alert and no apparent distress Constitutional Narrative: on nasal canula HEENT head/scalp atraumatic and moist oral mucous membranes Resp normal respiratory effort and no retractions Assessment & Plan Assessment/Plan (1) Weakness: (2) Difficulty in walking: PLAN: Plan Acute on chronic debility and difficulty with ambulation PT/OT/case management consulted. Lives at home with her dad, uses rollator for ambulation at baseline. Has had worsening weakness with shakiness and difficulty with ambulation for the past few days. ED workup unremarkable. PT evaluated in the ED and she was only able to ambulate 15 feet and was weaker than her baseline. May need SNF placement at discharge. Appreciate further therapy recommendations. Referral sent to [facility], but declined. Referral sent to [facility]. [place] wound debrided by Dr. Lewis. Continue Aqualcel with dry sterile dressing. No plan for surgical intervention inpatient. Follow-up with podiatry as outpatient. Chronic medical conditions: ? Class III obesity with suspected ABRAM: BMI 51 on admit. Complicates hospital course and care. Has been referred for outpatient sleep study but has not been able to do this yet. Continue home nasal cannula at night. ? Right upper extremity tremors. Recent hospitalization in early August for this. Neurology followed and symptoms improved on benztropine. Continue home benztropine and primidone. ? Chronic left foot wound: Follows with podiatry. Dr. Lewis saw her during hospitalization in early August and performed a bedside debridement. Has had dressing changes daily done since then with wound care/home health care. Wound care consulted for assistance with dressing changes. ? COPD with chronic hypoxic respiratory failure: Stable on home 3 L nasal cannula at this time. Continue home inhalers. ? Chronic HFpEF, hypertension: Mildly hypertensive to the 140s systolic on admit. Continue home lisinopril and nadolol. ? Type 2 diabetes mellitus with neuropathy: Blood glucose 141 on admit. Most recent A1c 12.4% on 08/26. Patient reports improved glucose control with adherence to home insulin regimen. Treat with reduced home regimen here of Lantus 60 units twice daily and Humalog 12 units with meals plus sliding scale insulin, adjust as needed. Continue home pregabalin. ? Schizoaffective disorder: Stable. Continue home bupropion, BuSpar, escitalopram, and lorazepam. ? GERD: Continue home PPI. ? Overactive bladder: Continue home oxybutynin. DVT prophylaxis: Lovenox twice daily CODE STATUS: Full code, verified Expected disposition: TBD Charges/Coding Visit Charges Inpatient E&M: 50799 [facility] Hosp L1
[2025-10-09 08:42] VITALS: BP 108/61; PULSE 67; RESP 17; TEMP 36.4; O2SAT 98
[2025-10-09] MEDS: Lactobacillis Acidophilus 1 CAP PO (08:49)
[2025-10-09] MEDS: Tolterodine Tartrate 4 MG CAP.SA PO (08:49)
[2025-10-09] MEDS: buPROPion (XL) 300 MG TABLET.XL PO (08:49)
[2025-10-09] MEDS: Insulin Glargine-YFGN 100 UNIT/ML Pen 60 UNIT SC (08:50)
[2025-10-09] MEDS: Lidocaine 5% Patch 1 PATCH TOPICAL (08:50)
[2025-10-09] MEDS: Fluticasone 0.05% 1 SPRAY NASAL.SRY NASAL (08:51)
--- NOTE | 2025-10-09 10:37 | CASEMGMT ---
Discharge Planning [facility] notified via [facility]Port that pt has decided to return home. Nat Gtz DC Planning Asst.
--- NOTE | 2025-10-09 10:42 | PN.SURG_ITS ---
Subjective Subjective Patient is a 59-year-old diabetic female seen at bedside today for evaluation of full-thickness wound to the right leg. Wound is stable she has no pain. Dressing changes by nursing staff. No acute events overnight. Denies trauma. Denies constitutional symptoms. No other pedal complaints at this time. Objective Data Objective Data Vital Signs: Vital Signs Temp Pulse Resp BP Pulse Ox O2 Del Method O2 Flow Rate 97.5 F L 67 17 108/61 98 Nasal Cannula 3 10/09/25 08:42 10/09/25 08:42 10/09/25 08:42 10/09/25 08:42 10/09/25 08:42 10/09/25 08:43 10/09/25 09:36 Oxygen Flow Rate (L/min) 3 Oxygen Delivery Method Nasal Cannula Weight: 139.1 kg Body Mass Index (BMI) 51.0 Intake & Output: Intake and Output for Last 24 Hours 10/07/25 10/08/25 10/09/25 23:59 23:59 23:59 Intake Total 200 / 200 Balance 200 / 200 Lab / Micro Data 10/08/25 05:57 10/08/25 05:57 Labs: Laboratory Results - last 24 hr 10/08/25 11:20: POC Glucose 202 H 10/08/25 16:32: POC Glucose 158 H 10/08/25 22:05: POC Glucose 184 H 10/09/25 06:28: POC Glucose 143 H Rhythm Strip Rhythm Strip: Sinus Rhythm Rate: 67 Ectopy: None Physical Exam Narrative Neurovascular status is unchanged. Nonpitting edema appreciated to the proximal and distal dressing of the left lower extremity. No pain to palpation to full- thickness wound over the dressing. No pain with calf pressure. Assessment & Plan Assessment/Plan (1) Type 2 diabetes mellitus with other skin ulcer: QUALIFIERS: Diabetes mellitus java grails developer insulin use: with java grails developer use Qualified Code(s): E11.622 - Type 2 diabetes mellitus with other skin ulcer; Z79.4 - assisted (current) use of insulin PLAN: Patient was examined and evaluated. All findings were discussed with the patient. All questions were answered to the patient satisfaction. Overall the patient is doing well after 1 night in the hospital. Dressing changes will be handled by nursing staff. Plan for possible SNF placement. Medicine: On board, medical management Social work: Discharge planning PT/OT: On board Dr. Lewis will continue to follow patient while in house. Please reach out with any question or concerns. (2) Difficulty in walking:
--- NOTE | 2025-10-09 11:01 | DS.PCM_ITS ---
Providers Date of Admission: 10/07/25 Primary Care Physician: Dr. Cristal Wolf MD Consultations 10/07/25 19:46 Consult: Onc/Wound/location man Routine Comment: Reason for Consult:: left leg wound 10/08/25 10:47 Consult: Podiatry Routine Consulting Provider: Mandeep Lewis Reason for Consult: left howell wound-your current pt EMERGENT Consult: No MD Notified: Yes Date Notified: 10/08/25 Time Notified: 10:47 Method of Notification: Text Reason For Visit: WEAKNESS Diagnosis Discharge Diagnosis (1) Weakness: Status: Resolved Code(s): R53.1 - Weakness (2) Difficulty in walking: Status: Acute Code(s): R26.2 - Difficulty in walking, not elsewhere classified Plan Acute on chronic debility and difficulty with ambulation * PT/OT/case management consulted. * Lives at home with her dad, uses rollator for ambulation at baseline. Has had worsening weakness with shakiness and difficulty with ambulation for the past few days. ED workup unremarkable. * PT evaluated in the ED and she was only able to ambulate 15 feet and was weaker than her baseline. May need SNF placement at discharge. Appreciate further therapy recommendations. * Referral sent to [facility], but declined. Referral sent to [facility]. Now patient plans to go home with [facility]. Howell wound * debrided by Dr. Lewis. Continue Aqualcel with dry sterile dressing. No plan for surgical intervention inpatient. Follow-up with podiatry as outpatient. Chronic medical conditions: ? Class III obesity with suspected ABRAM: BMI 51 on admit. Complicates hospital course and care. Has been referred for outpatient sleep study but has not been able to do this yet. Continue home nasal cannula at night. ? Right upper extremity tremors. Recent hospitalization in early August for this. Neurology followed and symptoms improved on benztropine. Continue home benztropine and primidone. ? Chronic left foot wound: Follows with podiatry. Dr. Lewis saw her during hospitalization in early August and performed a bedside debridement. Has had dressing changes daily done since then with wound care/home health care. Wound care consulted for assistance with dressing changes. ? COPD with chronic hypoxic respiratory failure: Stable on home 3 L nasal cannula at this time. Continue home inhalers. ? Chronic HFpEF, hypertension: Mildly hypertensive to the 140s systolic on admit. Continue home lisinopril and nadolol. ? Type 2 diabetes mellitus with neuropathy: Blood glucose 141 on admit. Most recent A1c 12.4% on 08/26. Patient reports improved glucose control with adherence to home insulin regimen. Treat with reduced home regimen here of Lantus 60 units twice daily and Humalog 12 units with meals plus sliding scale insulin, adjust as needed. Continue home pregabalin. ? Schizoaffective disorder: Stable. Continue home bupropion, BuSpar, escitalopram, and lorazepam. ? GERD: Continue home PPI. ? Overactive bladder: Continue home oxybutynin. DVT prophylaxis: Lovenox twice daily CODE STATUS: Full code, verified Expected disposition: TBD Medications at Discharge Home Medications bupropion HCl 300 mg 24 hr tablet, extended release 300 mg PO DAILY mental health 03/05/17 albuterol sulfate 90 mcg/actuation aerosol inhaler 2 puff inhalation Q4H PRN Sob &/Or Wheezing 05/29/18 aspirin 81 mg chewable tablet 81 mg PO DAILY@0800 heart health 07/17/20 buspirone 10 mg tablet 20 mg PO TID mood 01/25/22 cetirizine 10 mg tablet (Zyrtec) 10 mg PO DAILY allergies 01/25/22 guaifenesin 600 mg tablet, extended release 12 hr (Mucinex) 1,200 mg PO BID PRN Cough 01/25/22 primidone 250 mg tablet 750 mg PO QHS seizures 01/25/22 fluticasone 500 mcg-salmeterol 50 mcg/dose blistr powdr for inhalation 1 inh inhalation BID breathing 05/02/22 omeprazole 40 mg capsule,delayed release 40 mg PO DAILY gerd 05/02/22 ergocalciferol (vitamin D2) 1,250 mcg (50,000 unit) capsule (Vitamin D2) 50,000 unit PO QMONTH bone health 08/10/22 pregabalin 150 mg capsule 150 mg PO TID pain 08/10/22 ondansetron 4 mg disintegrating tablet 4 mg PO Q8H PRN Nausea 10/03/24 trazodone 150 mg tablet 150 mg PO QHS sleep 10/03/24 albuterol sulfate 2.5 mg/3 mL (0.083 %) solution for nebulization 2.5 mg inhalation Q6H PRN shortness of breath or wheezing 02/25/25 escitalopram oxalate 20 mg tablet 20 mg PO DAILY MENTAL HEALTH 03/01/25 acetaminophen 500 mg tablet 1,000 mg PO TID PAIN 04/17/25 lidocaine 4 % topical patch (Aspercreme (lidocaine)) 1 patch topical QDAY 04/17/25 lisinopril 10 mg tablet 10 mg PO DAILY blood pressure 04/17/25 nadolol 80 mg tablet 40 mg PO BID high blood pressure 04/17/25 allopurinol 100 mg tablet 100 mg PO DAILY GOUT 04/21/25 OXYGEN - Supplemental ([facility] INFORMATIONAL USE ONLY) hypoxia 08/25/25 dicyclomine 20 mg tablet 20 mg PO TID IBS 08/25/25 hydrocodone 7.5 mg-acetaminophen 325 mg tablet 1 tab PO Q6H PRN pain 08/25/25 hydroxyzine pamoate 25 mg capsule 25 mg PO BID PRN itching/anxiety 08/25/25 lorazepam 1 mg tablet 1 mg PO BID ANXIETY 08/25/25 miconazole nitrate 2 % topical cream 1 applic topical BID 08/25/25 montelukast 10 mg tablet 10 mg PO QHS ALLERGIES 08/25/25 oxybutynin chloride 15 mg tablet,extended release 24 hr 15 mg PO DAILY BLADDER 08/25/25 benztropine 0.5 mg tablet 0.5 mg PO BID MUSCLE SPASMS 30 days #60 tabs 08/27/25 insulin lispro 100 unit/mL subcutaneous pen 20 unit (0.2 mL) subcut ACHS DM 30 days #15 mL 08/27/25 Lactobacillus acidophilus 0.5 mg (100 million cell) tablet 0.5 mg PO DAILY SUPPLEMENT 10/07/25 benzonatate 100 mg capsule 200 mg PO TID PRN cough 10/07/25 chlorhexidine gluconate 4 % topical liquid (Merary-Hex) 1 applic topical DAILY PRN open area leg 10/07/25 cholecalciferol (vitamin D3) 1,250 mcg (50,000 unit) capsule 1,250 mcg PO QWEEK SUPPLEMENT 10/07/25 insulin glargine U-300 conc 300 unit/mL (3 mL) subcutaneous pen (Toujeo Max U- 300 SoloStar) 75 unit subcut BID BLOOD SUGAR 10/07/25 ipratropium bromide 42 mcg (0.06 %) nasal spray 2 spray intranasal 4X/DAY PRN allergy symptoms 10/07/25 lactulose 10 gram/15 mL oral solution (Enulose) 40 g PO BID constipation 10/07/25 lidocaine 4 % topical cream 1 applic topical DAILY PRN pain 10/07/25 loperamide 2 mg capsule 2 mg PO 4X/DAY PRN loose stool 10/07/25 naratriptan 2.5 mg tablet 2.5 mg PO PRN migraine 10/07/25 paliperidone palm (3 month) 819 mg/2.63 mL intramuscular syringe (Invega Trinza) 819 mg IM .EVERY 3 MONTH MOOD 10/07/25 semaglutide 0.25 mg or 0.5 mg (2 mg/3 mL) subcutaneous pen injector (Ozempic) 0.25 mg subcut QWEEK BLOOD SUGAR 10/07/25 tizanidine 4 mg tablet 4 mg PO BID PRN muscle spasticity 10/07/25 trospium 20 mg tablet 20 mg PO BID BLADDER 10/07/25 valbenazine 40 mg capsule (Ingrezza) 40 mg PO QHS 10/08/25 Weight / BMI Weight Weight: 139.1 kg Body Mass Index (BMI) 51.0 ABG / Lab / Microbiology Data 10/08/25 05:57 10/08/25 05:57 Laboratory: Laboratory Results - last 24 hr 10/08/25 11:20: POC Glucose 202 H 10/08/25 16:32: POC Glucose 158 H 10/08/25 22:05: POC Glucose 184 H 10/09/25 06:28: POC Glucose 143 H D/C Instructions DC O2, CPAP, BIPAP Needs Home O2 Discharge instructions: Yes Type of respiratory needs?: Oxygen Oxygen frequency: Continuous Continuous oxygen liters per minute: 3 DC home with Oxygen: Yes Home O2 MD Review: I have reviewed the oxygen testing, and the patient qualifies for home oxygen equipment and portability. The patient is mobile in the home and the community. Meaningful Use Info Meaningful Use Meaningful Use Diagnoses (Choose all that apply): None applicable Discharge Plan Admission Admit Date/Time: 10/07/25 16:15 Primary Reason for Your Visit: weakness. Attending Provider: Marek Echevarria Primary Care Provider: Cristal Wolf Consulting Providers: Zane Munson; Mandeep Lewis Instructions Additional Instructions / Restrictions: Wound care orders, left lower extremity full-thickness wound 1. Removal after dressing 2. Wash full-thickness wound with antibacterial soap and warm water, white clean and pat dry. 3. Apply Dakin solution to 2 x 2 gauze, cover with 4 x 4s and wrapped with Kerlix 4. Apply under casting from sulcus of toes to mid calf 5. Applied to 4 inch Silvestre wrap's from sulcus of toes to proximal calf 6. Change daily Follow up with psychiatry for your Ingrezza. Discharge Orders/Prescriptions Prescriptions: Continued omeprazole 40 mg capsule,delayed release(DR/EC) 40 mg PO DAILY pregabalin 150 mg capsule 150 mg PO TID ergocalciferol (vitamin D2) [Vitamin D2] 1,250 mcg (50,000 unit) capsule 50,000 unit PO QMONTH acetaminophen 500 mg tablet 1,000 mg PO TID lidocaine [Aspercreme (lidocaine)] 4 % adhesive patch,medicated 1 patch topical QDAY Rx Instructions: right hip bupropion HCl 300 MG tablet extended release 24 hr 300 mg PO DAILY Patient Comments: DEPRESSION albuterol sulfate 1 INHALER inhaler 2 puff INHALATION Q4H PRN (Reason: Sob &/Or Wheezing) cetirizine [Zyrtec] 10 mg Tablet 10 mg PO DAILY primidone 250 mg Tablet 750 mg PO QHS buspirone 10 mg Tablet 20 mg PO TID guaifenesin [Mucinex] 600 mg Tablet Extended Release 12hr 1,200 mg PO BID PRN (Reason: Cough) fluticasone propion-salmeterol 500-50 mcg/dose blister with device 1 inh INHALATION BID ondansetron 4 MG tablet 4 mg PO Q8H PRN (Reason: Nausea) trazodone 150 mg tablet 150 mg PO QHS Patient Comments: pt states she takes 1/2tab lisinopril 10 mg tablet 10 mg PO DAILY Rx Instructions: do not take if blood pressure < 100/60 escitalopram oxalate 20 mg tablet 20 mg PO DAILY cholecalciferol (vitamin D3) 1,250 mcg (50,000 unit) capsule 1,250 mcg PO QWEEK Patient Comments: every monday Invega Trinza 819 mg/2.63 mL syringe 819 mg IM .EVERY 3 MONTH Patient Comments: LAST SHOT IN AUGUST. TAKES EVERY 3 MONTHS. NEXT SHOT IS DUE IN NOVEMBER Lactobacillus acidophilus 0.5 mg (100 million cell) tablet 0.5 mg PO DAILY insulin glargine U-300 conc [Toujeo Max U-300 SoloStar] 300 unit/mL (3 mL) insulin pen 75 unit SUBCUT BID Patient Comments: [NO ORIGINAL SIG] benzonatate 100 mg capsule 200 mg PO TID PRN (Reason: cough) chlorhexidine gluconate [Merary-Hex] 4 % liquid 1 applic TOPICAL DAILY PRN (Reason: open area leg) Patient Comments: [NO ORIGINAL SIG] lactulose [Enulose] 10 gram/15 mL solution 40 g PO BID lidocaine 4 % cream 1 applic topical DAILY PRN (Reason: pain) loperamide 2 mg capsule 2 mg PO 4X/DAY PRN (Reason: loose stool) Rx Instructions: can take up to 4 times a day if needed ipratropium bromide 42 mcg (0.06 %) spray,non-aerosol 2 spray intranasal 4X/DAY PRN (Reason: allergy symptoms) Rx Instructions: administer into each nostril naratriptan 2.5 mg tablet 2.5 mg PO PRN tizanidine 4 mg tablet 4 mg PO BID PRN (Reason: muscle spasticity) trospium 20 mg tablet 20 mg PO BID Ozempic 0.25 mg or 0.5 mg (2 mg/3 mL) pen injector 0.25 mg subcut QWEEK Patient Comments: PT TAKES ON TUESDAYS Rx Instructions: for 4 weeks Ingrezza 40 mg capsule 40 mg PO QHS Rx Instructions: pt has her own medication here albuterol sulfate 2.5 mg /3 mL (0.083 %) solution for nebulization 2.5 mg inhalation Q6H PRN (Reason: shortness of breath or wheezing) allopurinol 100 mg tablet 100 mg PO DAILY oxybutynin chloride 15 mg tablet extended release 24hr 15 mg PO DAILY miconazole nitrate 2 % cream 1 applic topical BID dicyclomine 20 mg tablet 20 mg PO TID montelukast 10 mg tablet 10 mg PO QHS lorazepam 1 mg tablet 1 mg PO BID hydroxyzine pamoate 25 mg capsule 25 mg PO BID PRN (Reason: itching/anxiety) Rx Instructions: take 2-3 capsules by mouth twice daily as needed for itching/rash or anxiety hydrocodone-acetaminophen 7.5-325 mg tablet 1 tab PO Q6H PRN (Reason: pain) Patient Comments: PT STATES SHE TAKES ONCE DAILY Rx Instructions: up to 7 days OXYGEN - Supplemental ([facility] INFORMATIONAL USE ONLY) Patient Comments: home oxygen through [facility]. Verified 3L @ rest and 5L with exertion via NC-per CM pervious admissions note benztropine 0.5 mg Tablet 0.5 mg PO BID 30 Days Qty: 60 0RF insulin lispro 100 unit/mL insulin pen 20 unit subcut ACHS 30 Days Qty: 15 0RF Patient Comments: PT STATES SHE ONLY TAKES WITH MEALS AND TAKES 22 UNITS FOR THE SUPPER DOSE Rx Instructions: Max daily insulin lispro 60 units nadolol 80 mg tablet 40 mg PO BID Discontinued insulin lispro [Humalog KwikPen Insulin] 100 unit/mL insulin pen 1 sliding scale dose subcut USEASDIRECTD Rx Instructions: 180-200=2u 201-250=4u 251-300=6u 301-350=8u 351-400=10u 401-450=12u >451 notify No Action aspirin 81 MG tablet,chewable 81 mg PO DAILY@0800 0RF Referrals / Follow Up: Mandeep Lewis DPM [Med Staff - Active Staff, Podiatry] - In 1 Week Cristal Wolf MD [Primary Care Provider, Internal Medicine] - Within 2 Weeks Disposition Disposition (needs filled in before D/C Order can be placed): Home, Self Care Charges/Coding Visit Charges Inpatient E&M: 94183 Disch Hosp
--- NOTE | 2025-10-09 11:25 | PHA.DC_ITS ---
Pharmacy [facility] Med Reconciliation Pharmacy Service has performed discharge medication reconciliation for this patient. The patient's discharge medication list was reviewed for discrepancies and discrepancies were resolved. Medications at Discharge Home Medications bupropion HCl 300 mg 24 hr tablet, extended release 300 mg PO DAILY mental health 03/05/17 albuterol sulfate 90 mcg/actuation aerosol inhaler 2 puff inhalation Q4H PRN Sob &/Or Wheezing 05/29/18 aspirin 81 mg chewable tablet 81 mg PO DAILY@0800 heart health 07/17/20 buspirone 10 mg tablet 20 mg PO TID mood 01/25/22 cetirizine 10 mg tablet (Zyrtec) 10 mg PO DAILY allergies 01/25/22 guaifenesin 600 mg tablet, extended release 12 hr (Mucinex) 1,200 mg PO BID PRN Cough 01/25/22 primidone 250 mg tablet 750 mg PO QHS seizures 01/25/22 fluticasone 500 mcg-salmeterol 50 mcg/dose blistr powdr for inhalation 1 inh inhalation BID breathing 05/02/22 omeprazole 40 mg capsule,delayed release 40 mg PO DAILY gerd 05/02/22 ergocalciferol (vitamin D2) 1,250 mcg (50,000 unit) capsule (Vitamin D2) 50,000 unit PO QMONTH bone health 08/10/22 pregabalin 150 mg capsule 150 mg PO TID pain 08/10/22 ondansetron 4 mg disintegrating tablet 4 mg PO Q8H PRN Nausea 10/03/24 trazodone 150 mg tablet 150 mg PO QHS sleep 10/03/24 albuterol sulfate 2.5 mg/3 mL (0.083 %) solution for nebulization 2.5 mg inhalation Q6H PRN shortness of breath or wheezing 02/25/25 escitalopram oxalate 20 mg tablet 20 mg PO DAILY MENTAL HEALTH 03/01/25 acetaminophen 500 mg tablet 1,000 mg PO TID PAIN 04/17/25 lidocaine 4 % topical patch (Aspercreme (lidocaine)) 1 patch topical QDAY 04/17/25 lisinopril 10 mg tablet 10 mg PO DAILY blood pressure 04/17/25 nadolol 80 mg tablet 40 mg PO BID high blood pressure 04/17/25 allopurinol 100 mg tablet 100 mg PO DAILY GOUT 04/21/25 OXYGEN - Supplemental ([facility] INFORMATIONAL USE ONLY) hypoxia 08/25/25 dicyclomine 20 mg tablet 20 mg PO TID IBS 08/25/25 hydrocodone 7.5 mg-acetaminophen 325 mg tablet 1 tab PO Q6H PRN pain 08/25/25 hydroxyzine pamoate 25 mg capsule 25 mg PO BID PRN itching/anxiety 08/25/25 lorazepam 1 mg tablet 1 mg PO BID ANXIETY 08/25/25 miconazole nitrate 2 % topical cream 1 applic topical BID 08/25/25 montelukast 10 mg tablet 10 mg PO QHS ALLERGIES 08/25/25 oxybutynin chloride 15 mg tablet,extended release 24 hr 15 mg PO DAILY BLADDER 08/25/25 benztropine 0.5 mg tablet 0.5 mg PO BID MUSCLE SPASMS 30 days #60 tabs 08/27/25 insulin lispro 100 unit/mL subcutaneous pen 20 unit (0.2 mL) subcut ACHS DM 30 days #15 mL 08/27/25 Lactobacillus acidophilus 0.5 mg (100 million cell) tablet 0.5 mg PO DAILY SUPPLEMENT 10/07/25 benzonatate 100 mg capsule 200 mg PO TID PRN cough 10/07/25 chlorhexidine gluconate 4 % topical liquid (Merary-Hex) 1 applic topical DAILY PRN open area leg 10/07/25 cholecalciferol (vitamin D3) 1,250 mcg (50,000 unit) capsule 1,250 mcg PO QWEEK SUPPLEMENT 10/07/25 insulin glargine U-300 conc 300 unit/mL (3 mL) subcutaneous pen (Toujeo Max U- 300 SoloStar) 75 unit subcut BID BLOOD SUGAR 10/07/25 ipratropium bromide 42 mcg (0.06 %) nasal spray 2 spray intranasal 4X/DAY PRN allergy symptoms 10/07/25 lactulose 10 gram/15 mL oral solution (Enulose) 40 g PO BID constipation 10/07/25 lidocaine 4 % topical cream 1 applic topical DAILY PRN pain 10/07/25 loperamide 2 mg capsule 2 mg PO 4X/DAY PRN loose stool 10/07/25 naratriptan 2.5 mg tablet 2.5 mg PO PRN migraine 10/07/25 paliperidone palm (3 month) 819 mg/2.63 mL intramuscular syringe (Invega Trinza) 819 mg IM .EVERY 3 MONTH MOOD 10/07/25 semaglutide 0.25 mg or 0.5 mg (2 mg/3 mL) subcutaneous pen injector (Ozempic) 0.25 mg subcut QWEEK BLOOD SUGAR 10/07/25 tizanidine 4 mg tablet 4 mg PO BID PRN muscle spasticity 10/07/25 trospium 20 mg tablet 20 mg PO BID BLADDER 10/07/25 valbenazine 40 mg capsule (Ingrezza) 40 mg PO QHS 10/08/25
--- NOTE | 2025-10-09 11:32 | CASEMGMT ---
Social Work SW collaborated with therapy who state pt did very well today and did not need assistance with ambulation in room or with ADLs today. SW met with pt who states she feels she can now return home and does not need SNF placement. Pt is already receiving home health nurse from [facility] and is agreeable to add PT/OT services. Referral made to [facility]. Pt is active with SN and PT/OT can be added with Start of Care on Monday. Pt does have home oxygen and states her father can transport pt home and can bring portable oxygen to the hospital. Physician notified and pt to dc today. DC orders faxed to [facility] AIDA Tam and VM left with change of dc plan. DC printer floor covering assistant notified to cancel SNF referrals. Disposition: Home with [facility] PT/OT/SN and continuation of Passport services through [facility]. MADAN Dumont
--- NOTE | 2025-10-09 12:10 | CASEMGMT ---
Social Work SW assisted pt in completing HCPOA and Living Will. copy placed on pt chart and original given to pt. MADAN Sandra
[2025-10-09 13:02] VITALS: PULSE 69; RESP 16
[2025-10-09 13:59] VITALS: BP 109/58; PULSE 60; RESP 17; TEMP 36.6; O2SAT 98
--- NOTE | 2025-10-09 15:03 | CHAPLAIN ---
Type of Pastoral Visit _x__ Initial Visit ___ Follow-up Visit ___ On-call Visit ___ General Patient Visit ___ Spiritual Assessment ___ Family Conference ___ Bereavement ___ Rapid Response ___ Code Blue ___ Other (describe below) Pastoral Care Referral From _x__ Patient ___ Family ___ Nurse ___ Physician ___ Cover Assembler ___ Display Department Manager ___ Other (describe below) Sacrament/Intervention _x__ Active listening ___ Anointing ___ Mosque ___ Bereavement ___ Communion ___ Rianna exploration ___ ___ Life review _x__ Prayer ___ Reconciliation ___ Sacrament of Sick _x__ Supportive presence ___ Wedding ___ Other (describe below) Pastoral Comments patient is going to be discharged soon; pt and step father are in the room and talk about the events following today; both ask for special prayers for patient's sister in [place] that is in ICU and nearing possible ; more updates on family life and needs are expressed; prayer and presence welcomed; pt has heard that this center customer service associate will be retiring and gives her best wishes and words of thanks
== END 2025-10-09 15:00 | disposition home health service (06) ==
LOC: ED 10:54 → MS3 16:40
PROVIDERS: Admitting Provider Hospitalist; Emergency Provider Emergency Medicine; PCP Internal Medicine
DX: I11.0 Hypertensive heart disease with heart failure (principal); E11.622 Type 2 diabetes mellitus with other skin ulcer; L97.929 Non-pressure chronic ulcer of unspecified part of left lower leg with unspecified severity; F25.9 Schizoaffective disorder, unspecified; J96.11 Chronic respiratory failure with hypoxia; I50.32 Chronic diastolic (congestive) heart failure; F31.9 Bipolar disorder, unspecified; J44.9 Chronic obstructive pulmonary disease, unspecified; Z68.43 Body mass index [BMI] 50.0-59.9, adult; E66.813 Obesity, class 3; Z79.4 Long term (current) use of insulin; E11.51 Type 2 diabetes mellitus with diabetic peripheral angiopathy without gangrene; E11.42 Type 2 diabetes mellitus with diabetic polyneuropathy; E11.65 Type 2 diabetes mellitus with hyperglycemia; R53.81 Other malaise; G89.4 Chronic pain syndrome; R53.1 Weakness; Z79.82 Long term (current) use of aspirin; R25.1 Tremor, unspecified; K21.9 Gastro-esophageal reflux disease without esophagitis; R26.2 Difficulty in walking, not elsewhere classified; Z79.899 Other long term (current) drug therapy; N32.81 Overactive bladder; R32 Unspecified urinary incontinence; R94.31 Abnormal electrocardiogram [ECG] [EKG]; M10.9 Gout, unspecified; Z99.81 Dependence on supplemental oxygen; Z79.51 Long term (current) use of inhaled steroids; F41.9 Anxiety disorder, unspecified; D50.9 Iron deficiency anemia, unspecified
CPT/HCPCS: 36415; 71046; 80048; 80053; 81001; 82962; 83880; 85025; 85027; 93005; 94640; 94668; 96372; 97162; 97166; 97530; 97535; 99221; 99285; A4216; G0378

== ENCOUNTER 2025-10-18 19:23 | Inpatient (IN) | payer MEDICAID, SELFPAY ==
[2025-10-18 19:24] VITALS: BP 102/90; PULSE 80; RESP 18; TEMP 36.8; O2SAT 98; BMI 52.5
--- NOTE | 2025-10-18 19:40 | EKG12_ITS ---
Test Reason : DYSRHYTHMIA Blood Pressure : */* mmHG Vent. Rate : 76 BPM Atrial Rate : 76 BPM P-R Int : 158 ms QRS Dur : 104 ms QT Int : 378 ms P-R-T Axes : 51 -6 18 degrees QTcB Int : 425 ms Normal sinus rhythm Nonspecific ST and T wave abnormality Abnormal ECG Confirmed by KERRY AMADOR ([id number]), industrial editor KM ALANIS ([id number]) on 10/20/2025 6:42:09 AM Referred By: Confirmed By: KERRY AMADOR
--- NOTE | 2025-10-18 19:41 | EDS_ITS ---
HPI History of Present Illness Chief Complaint: Lower Extremity Injury Detail of Chief Complaint: No injury. Bilateral lower extremity weakness. Informant: patient Onset/Context/Timing Onset: Weeks Context: Gradual Onset Timing: Continuous Current Severity: Mild Maximum Severity: Mild Narrative Narrative: 60-year-old female history diabetes, CHF, anemia, COPD, bipolar. Admitted to the hospital last several weeks. States she just feels weak. Says when she walks around her house about 50 feet she has to sit down because she just gets weak and tired. Feels like "my legs are going to give out". She has chronic lower extremity pain that is not new or different. She denies any chest pain. Denies any shortness of breath. Denies any fever. Denies any vomiting or diarrhea. No melena. Denies any dysuria. Prior similar symptoms: Yes Recent Illness/Hospitalization: Yes [facility] Medical History Type 2 diabetes mellitus with other skin ulcer Congestive heart failure (CHF) Anemia Osteoarthritis pen[facility]entiary current use of insulin Old myocardial infarction Adult failure to thrive Anemia COPD (chronic obstructive pulmonary disease) Chronic hypoxic respiratory failure, on home oxygen therapy COPD (chronic obstructive pulmonary disease) Bipolar disorder Non-smoker CPAP (continuous positive airway pressure) dependence On home oxygen therapy Myocardial infarct Hypertension History of ESBL E. coli infection Schizophrenia Other specified peripheral vascular diseases Chronic painful diabetic polyneuropathy Edema of both lower extremities Venous insufficiency (chronic) (peripheral) Diabetes PTSD (post-traumatic stress disorder) Depression Schizo affective schizophrenia Hypersomnia, unspecified Diabetes Left ventricular aneurysm Essential hypertension Chest pain Diabetes mellitus type 2, uncontrolled, with complications Back pain Asthma Knee pain Migraines Fatigue Hemorrhoids COPD (chronic obstructive pulmonary disease) Arthritis Pain syndrome, chronic Bipolar disorder Migraines Obstructive sleep apnea Stasis dermatitis of both legs Venous insufficiency of both lower extremities Super obese Open wound of left lower extremity GERD (gastroesophageal reflux disease) Benign hypertension ADHD (attention deficit hyperactivity disorder) Home Medications Medication Instructions Recorded Last Taken Type bupropion HCl 300 mg 24 hr tablet, 300 mg PO DAILY [facility] Prognomix 03/05/17 10/06/25 History extended release albuterol sulfate 90 mcg/actuation 2 puff inhalation Q 4H PRN Sob &/Or 05/29/18 10/06/25 History aerosol inhaler Wheezing aspirin 81 mg chewable tablet 81 mg PO DAILY@0800 [facility] 07/17/20 10/06/25 Rx buspirone 10 mg tablet 20 mg PO TID mood 01/25/22 1 12/06/24 History cetirizine 10 mg tablet (Zyrtec) 10 mg PO DAILY allerg ies 01/25/22 10/06/25 History guaifenesin 600 mg tablet, 1,200 mg PO BID PRN Cough 0 01/25/22 08/24/25 History extended release 12 hr (Mucinex) primidone 250 mg tablet 750 mg PO QHS seizures 01/2510/06/25 History fluticasone 500 mcg-salmeterol 50 1 inh inhalation BID breathing 05/02/22 10/06/25 History mcg/dose blistr powdr for inhalation omeprazole 40 mg capsule,delayed 40 mg PO DAILY gerd 0 05/02/22 10/06/25 History release ergocalciferol (vitamin D2) 1,250 50,000 unit PO Q[facility] 08/10/22 04/21/25 History mcg (50,000 unit) capsule (Vitamin D2) pregabalin 150 mg capsule 150 mg PO TID pain 08/10/22 10/06/25 History ondansetron 4 mg disintegrating 4 mg PO Q8H PRN Nausea 10/03/24 08/23/25 History tablet trazodone 150 mg tablet 150 mg PO QHS sleep 10/03/24 10/06/25 History albuterol sulfate 2.5 mg/3 mL 2.5 mg inhalation Q6H OH N 02/25/25 10/06/25 History (0.083 %) solution for nebulization shortness of breat h or wheezing escitalopram oxalate 20 mg tablet 20 mg PO DAILY [facility] 03/01/25 10/06/25 History acetaminophen 500 mg tablet 1,000 mg PO TID PAIN 04/1710/06/25 History lidocaine 4 % topical patch 1 patch topical QDAY 04/1710/06/25 History (Aspercreme (lidocaine)) lisinopril 10 mg tablet 10 mg PO DAILY blood pressur e 04/17/25 10/06/25 History nadolol 80 mg tablet 40 mg PO BID high blood pres sure 04/17/25 10/06/25 History allopurinol 100 mg tablet 100 mg PO DAILY GOUT 5 10/06/25 History OXYGEN - Supplemental ([facility] hypoxia 08/25/25 Unknown Hi story INFORMATIONAL USE ONLY) dicyclomine 20 mg tablet 20 mg PO TID IBS 08/25/25 History hydrocodone 7.5 mg-acetaminophen 1 tab PO Q6H PRN pain 08/25/25 10/06/25 History 325 mg tablet hydroxyzine pamoate 25 mg capsule 25 mg PO BID PRN itc yousif/anxiety 08/25/25 10/06/25 History lorazepam 1 mg tablet 1 mg PO BID ANXIETY 08/25/25 10/06/25 History miconazole nitrate 2 % topical 1 applic topical BID 10/06/25 History cream montelukast 10 mg tablet 10 mg PO QHS ALLERGIES 08/2510/06/25 History oxybutynin chloride 15 mg 15 mg PO DAILY BLADDER 08/2510/06/25 History tablet,extended release 24 hr benztropine 0.5 mg tablet 0.5 mg PO BID MUSCLE SPASMS 30 08/27/25 10/06/25 Rx days #60 tabs insulin lispro 100 unit/mL 20 unit (0.2 mL) subcut ACH S DM 30 08/27/25 10/06/25 Rx subcutaneous pen days #15 mL Lactobacillus acidophilus 0.5 mg 0.5 mg PO DAILY SUPPL EMENT 10/07/25 10/06/25 History (100 million cell) tablet benzonatate 100 mg capsule 200 mg PO TID PRN cough Unknown History chlorhexidine gluconate 4 % 1 applic topical DAILY PRN open 10/07/25 Unknown History topical liquid (Merary-Hex) area leg cholecalciferol (vitamin D3) 1,250 1,250 mcg PO QWEEK SUPPLEMENT 10/07/25 10/01/25 History mcg (50,000 unit) capsule insulin glargine U-300 conc 300 75 unit subcut BID BLO OD SUGAR 10/07/25 10/06/25 History unit/mL (3 mL) subcutaneous pen (Toujeo Max U-300 SoloStar) ipratropium bromide 42 mcg (0.06 2 spray intranasal 4X /DAY PRN 10/07/25 Unknown History %) nasal spray allergy symptoms lactulose 10 gram/15 mL oral 40 g PO BID constipation 10/07/25 10/06/25 History solution (Enulose) lidocaine 4 % topical cream 1 applic topical DAILY PRN pain 10/07/25 Unknown History loperamide 2 mg capsule 2 mg PO 4X/DAY PRN loose sto ol 10/07/25 Unknown History naratriptan 2.5 mg tablet 2.5 mg PO PRN migraine 10/07 Unknown History paliperidone palm (3 month) 819 819 mg IM .EVERY 3 MON TH MOOD 10/07/25 Unknown History mg/2.63 mL intramuscular syringe (InvTripIt) semaglutide 0.25 mg or 0.5 mg (2 0.25 mg subcut QWEEK BLOOD SUGAR 10/07/25 Unknown History mg/3 mL) subcutaneous pen injector (Cellity) tizanidine 4 mg tablet 4 mg PO BID PRN muscle spast icity 10/07/25 Unknown History trospium 20 mg tablet 20 mg PO BID BLADDER 5 10/06/25 History valbenazine 40 mg capsule 40 mg PO QHS 10/08/25 Unknow n History (Ingrezza) Allergy/AdvReac Type Severity Reaction Status Date / Time meloxicam Allergy Severe Anaphylaxis Verified 10/18/25 19:28 vancomycin Allergy Severe BURNING Verified 10/18/25 19:28 RED RASH ON LEGGS amlodipine (From Norvasc) Allergy Swelling Verified 10/18/25 19:28 cefazolin sodium (From Ancef) Allergy Hives Verified 10/18/25 19:28 fexofenadine (From Nia) Allergy Shortness Verified 10/18/25 19:28 of breath nitrofurantoin (From Allergy Hives Verified 10/18/25 19:28 Macrobid) Penicillins Allergy Hives Verified 10/18/25 19:28 sumatriptan (From Imitrex) Allergy Shortness Verified 10/18/25 19:28 of breath adhesive AdvReac BURNING Verified 10/18/25 19:28 amitriptyline (From Elavil) AdvReac Other Verified 10/18/25 19:28 clindamycin AdvReac Diarrhea Verified 10/18/25 19:28 ziprasidone (From Geodon) AdvReac NEEDS Verified 10/18/25 19:28 FOLLOW-UP Family History Father CVA (cerebral vascular accident) Heart disease Mother Heart disease Surgical History History of elbow surgery (~06/2020) History of arthroscopic knee surgery History of left heart catheterization (07/16/20) Kidney stone H/O hernia repair Hx of hysterectomy Hx of section Social History household members: family housing: house Smoking Status: Never smoker alcohol intake: never substance use type: does not use caffeine: Yes (occasionally) ROS ROS ED ROS Narrative Denies recent illness. Constitutional Constitutional ED: Denies chills or fever(s) Eyes Eyes: Denies blurry vision ENT ENT ED: Denies ear pain Cardiovascular Cardiovascular: Denies chest pain Respiratory/Chest Respiratory/Chest: Denies cough or dyspnea Gastrointestinal Gastrointestinal: Denies abdominal pain, constipation, diarrhea, melena, nausea or vomiting Genitourinary Genitourinary ED: Denies dysuria or hematuria Musculoskeletal Musculoskeletal: Denies arthralgias Integumentary Denies abscess Neurologic Neurologic: Denies headache(s) Psychiatric Psychiatric: Denies anxiety Endocrine Endocrinology: Denies cold intolerance Hematologic/Lymphatic Hematologic/Lymphatic: Reports anemia Allergic/Immunologic Allergic/Immunologic ED: Denies mouth swelling, tongue swelling or urticaria EXAM Physical Exam Narrative Exam Narrative: 60-year-old female sitting upright in bed vital signs stable afebrile. Pulse ox 90% on 3 L. No distress. at bedside. H EENT pupils round react to light. Moist mucous membranes. Neck nontender no JVD. No lymphadenopathy. Lungs clear to auscultation bilaterally. Heart regular rhythm rate about 80 no murmur. Chest wall ribs nontender. Abdomen morbidly obese but soft nontender, nondistended normal bowel sounds without peritoneal signs. Back nontender. Moving all 4 extremities. 5 out of 5 maintenance coordinator strength. Dorsi plantarflexion intact. Chronic wound left lower extremity with dressing in place. Neurologically she is awake alert. Answering questions following commands. No focal motor deficits. Const Vital Signs: 10/18/25 19:24 Temperature 98.2 F Temperature Source Oral Pulse Rate 80 Respiratory Rate 18 Blood Pressure 102/90 H Blood Pressure Mean 94 Pulse Ox 98 Oxygen Delivery Method Nasal Cannula Oxygen Flow Rate (L/min) 3 MDM MDM MDM Narrative Medical decision making narrative: 60-year-old female feels weak like her legs are getting give out at home. Had a recent hospitalization. Her current exam is pretty benign. Will see if she has a worsening anemia or electrolyte abnormalities or dehydration. She has got no current history or signs of any infection. Repeat exam around 8:39 PM no change. Discussed with patient and the gentleman at bedside she states she is not able to make it at home she lives alone. She would like to be admitted and then transferred to [facility]. I spoke to the [id number] admit her. History & Record Review Discussion w/independent historian: Patient and Family Additional record(s) reviewed:: Prior inpatient record, Prior outpatient record, Prior ED visit and Prior labs Lab Data Attestation: I reviewed the patient's lab results. Lab results narrative: CBC shows a white count 7.4 H&H 9.8 and 31 which is consistent with her baseline anemia her hemoglobins are often 9-10. Platelets 151. Chemistries show Gap at 9 BUN and creatinine are 15 and 0.6. Glucose of 160 patient is a known diabetic. Liver enzymes are unremarkable. Labs are consistent with prior labs. Labs: Laboratory Results - last 24 hr 10/18/25 19:50 WBC 7.4 RBC 3.34 L Hgb 9.8 L Hct 31.0 L MCV 92.8 MCH 29.3 MCHC 31.6 L RDW Std Deviation 47.5 H RDW Coeff of Jocy 14.0 Plt Count 151 MPV 9.2 Immature Gran % (Auto) 0.700 Neut % (Auto) 84.8 H Lymph % (Auto) 9.1 L [place] % (Auto) 5.4 Eos % (Auto) 0.0 Baso % (Auto) 0.0 Absolute Neuts (auto) 6.2 Absolute Lymphs (auto) 0.67 L Nucleated RBC % 0 Sodium 144 Potassium 4.3 Chloride 100 Carbon Dioxide 34.2 H Anion Gap 9 BUN 15 Creatinine 0.65 L Estim Creat Clear Calc 129.65 Est GFR (MDRD) Non-Af 100 BUN/Creatinine Ratio 22.7 H Glucose 160 H Calcium 9.2 Total Bilirubin 0.21 AST 19 ALT 21 Alkaline Phosphatase 55 Total Protein 6.8 Albumin 3.8 Globulin 3.0 Albumin/Globulin Ratio 1.3 Rhythm Strip Rhythm Strip: Sinus Rhythm Rate: 76 Ectopy: None EKG Initial EKG: Attestation: I personally reviewed and interpreted this EKG as follows: Interpretation: Sinus Rhythm and No Acute Injury Pattern Comments: Normal sinus rhythm rate of 76 no acute signs of [place]. Inverted T waves in V2. No ST elevation. No dysrhythmia. Discharge Plan Dx/Rx/DC Orders Clinical Impression: Generalized weakness, Adult failure to thrive, History of [place] (myocardial infarction), History of chronic CHF, Chronic anemia, History of diabetes mellitus Disposition Disposition: Acute Care Hospital [facility]
[2025-10-18 19:56] LABS: Hematocrit 31.0 % (37-47); Hemoglobin 9.8 g/dL (12.0-15.0); Immature Granulocytes Count 0.050 X10^3/uL (0.0-0.0); Mean Corp Hgb Conc 31.6 g/dL (32-36); Mean Corpuscular Volume 92.8 fL (81-99); Mean Platelet Vol. 9.2 fl (6.2-12.0); NRBC Flagged by Analyzer 0 % (0-5); Platelet Count 151 K/mm3 (150-450); RBC Distribution Width CV 14.0 % (11.6-14.6); RBC Distribution Width SD 47.5 fl (35.1-43.9); Red Blood Count 3.34 M/mm3 (4.2-5.4); White Blood Count 7.4 K/mm3 (4.4-11.0)
[2025-10-18 20:23] LABS: AST(SGOT) 19 U/L (<=31); Alanine Aminotransfer ALT/SGPT 21 U/L (<=34); Albumin, Serum 3.8 g/dL (3.4-4.8); Alkaline Phosphatase 55 U/L (35-104); Anion Gap 9 (5-15); BUN 15 mg/dL (4-19); BUN/Creat Ratio 22.7 RATIO (10-20); Calcium,Total 9.2 mg/dL (7.6-11.0); Carbon Dioxide 34.2 mmol/L (21.0-32.0); Chloride 100 mmol/L (98-108); Estimated Creatinine Clearance 129.65 ml/min (50-250); Globulin 3.0 g/dL (2.2-4.2); Glucose 160 mg/dL (70-99); Potassium 4.3 mmol/L (3.3-5.1)
[2025-10-18 20:50] VITALS: BP 156/79; PULSE 73; RESP 20; TEMP 37.3; O2SAT 99
[2025-10-18 22:37] VITALS: BMI 51.2
--- NOTE | 2025-10-18 22:40 | PCM.HP.STD ---
HPI - General General Date of Admission: 10/18/25 Date of Service: 10/18/25 Chief Complaint: Ambulatory dysfunction and debility HPI Narrative GARTH MACK, is a 60 F who presents to [facility] on 10/18/2025 with lower extremity weakness, fatigue and limited ability at ambulation even for a short distance at home. Patient has medical history significant for COPD with chronic hypoxemic respiratory failure on 3 L of continuous oxygen, HFpEF, morbid obesity and schizoaffective disorder. Patient was recently hospitalized on 10/07/2025 at our facility with exact similar complaint and was discharged after 2 days, she decided to go home with home health after she was seen by PT OT who decided that she needs rehab placement. One of the facilities, [facility] declined. Then a referral was sent to [facility] but I do not have further information or updates on this referral. During the recent admission she also underwent debridement for the left lower leg wound by podiatry Dr. Lewis, and continued to have wound care at home, she gets a nurse for wound care. No issues or complications according to the patient. Currently patient complains of weakness in both legs below the knees especially when she walks and she feels that the leg gives away. On exam she had no focal deficit or drift. Denies any tingling, pain or numbness in feet or legs. No leg edema. She denies any worsening in her baseline dyspnea, cough, or wheezing. No increase in cough or change in sputum production. Remains on 3 L oxygen at rest. No chest pain, abdominal pain or change in bowel or urinary habits. No changes in medications. Patient lives alone, her dad helps her but she believes that it is getting too much for him who is 84-year-old. [facility] Medical History (Updated 10/18/25 @ 23:[address] Ki Marti MD) Diabetes mellitus type 2, uncontrolled, with complications Type 2 diabetes mellitus with other skin ulcer Congestive heart failure (CHF) Anemia Osteoarthritis detention current use of insulin Old myocardial infarction Adult failure to thrive Anemia COPD (chronic obstructive pulmonary disease) Chronic hypoxic respiratory failure, on home oxygen therapy COPD (chronic obstructive pulmonary disease) Bipolar disorder Non-smoker CPAP (continuous positive airway pressure) dependence On home oxygen therapy Myocardial infarct Hypertension History of ESBL E. coli infection Schizophrenia Other specified peripheral vascular diseases Chronic painful diabetic polyneuropathy Edema of both lower extremities Venous insufficiency (chronic) (peripheral) Diabetes PTSD (post-traumatic stress disorder) Depression Schizo affective schizophrenia Hypersomnia, unspecified Diabetes Left ventricular aneurysm Essential hypertension Chest pain Back pain Asthma Knee pain Migraines Fatigue Hemorrhoids COPD (chronic obstructive pulmonary disease) Arthritis Pain syndrome, chronic Bipolar disorder Migraines Obstructive sleep apnea Stasis dermatitis of both legs Venous insufficiency of both lower extremities Super obese Open wound of left lower extremity GERD (gastroesophageal reflux disease) Benign hypertension ADHD (attention deficit hyperactivity disorder) Home Medications Medication Instructions Recorded Last Taken Type bupropion HCl 300 mg 24 hr tablet, 300 mg PO DAILY mental health 03/05/17 10/06/25 History extended release albuterol sulfate 90 mcg/actuation 2 puff inhalation Q4H PRN Sob &/Or 05/29/18 10/06/25 History aerosol inhaler Wheezing aspirin 81 mg chewable tablet 81 mg PO DAILY@0800 [facility] 07/17/20 10/06/25 Rx buspirone 10 mg tablet 20 mg PO TID mood 01/25/22 10/06/25 History cetirizine 10 mg tablet (Zyrtec) 10 mg PO DAILY allergies 01/25/22 10/06/25 History guaifenesin 600 mg tablet, 1,200 mg PO BID PRN Cough 01/25/22 08/24/25 History extended release 12 hr (Mucinex) primidone 250 mg tablet 750 mg PO QHS seizures 01/25/22 10/06/25 History fluticasone 500 mcg-salmeterol 50 1 inh inhalation BID breathing 05/02/22 10/06/25 History mcg/dose blistr powdr for inhalation omeprazole 40 mg capsule,delayed 40 mg PO DAILY gerd 05/02/22 10/06/25 History release ergocalciferol (vitamin D2) 1,250 50,000 unit PO QMONTH bone health 08/10/22 04/21/25 History mcg (50,000 unit) capsule (Vitamin D2) pregabalin 150 mg capsule 150 mg PO TID pain 08/10/22 10/06/25 History ondansetron 4 mg disintegrating 4 mg PO Q8H PRN Nausea 10/03/24 08/23/25 History tablet trazodone 150 mg tablet 150 mg PO QHS sleep 10/03/24 10/06/25 History albuterol sulfate 2.5 mg/3 mL 2.5 mg inhalation Q6H PRN 02/25/25 10/06/25 History (0.083 %) solution for nebulization shortness of breath or wheezing escitalopram oxalate 20 mg tablet 20 mg PO DAILY MENTAL HEALTH 03/01/25 10/06/25 History acetaminophen 500 mg tablet 1,000 mg PO TID PAIN 04/17/25 10/06/25 History lidocaine 4 % topical patch 1 patch topical QDAY 04/17/25 10/06/25 History (Aspercreme (lidocaine)) lisinopril 10 mg tablet 10 mg PO DAILY blood pressure 04/17/25 10/06/25 History nadolol 80 mg tablet 40 mg PO BID high blood pressure 04/17/25 10/06/25 History allopurinol 100 mg tablet 100 mg PO DAILY GOUT 04/21/25 10/06/25 History OXYGEN - Supplemental ([facility] hypoxia 08/25/25 Unknown History INFORMATIONAL USE ONLY) dicyclomine 20 mg tablet 20 mg PO TID IBS 08/25/25 10/06/25 History hydrocodone 7.5 mg-acetaminophen 1 tab PO Q6H PRN pain 08/25/25 10/06/25 History 325 mg tablet hydroxyzine pamoate 25 mg capsule 25 mg PO BID PRN itching/anxiety 08/25/25 10/06/25 History lorazepam 1 mg tablet 1 mg PO BID ANXIETY 08/25/25 10/06/25 History miconazole nitrate 2 % topical 1 applic topical BID 08/25/25 10/06/25 History cream montelukast 10 mg tablet 10 mg PO QHS ALLERGIES 08/25/25 10/06/25 History oxybutynin chloride 15 mg 15 mg PO DAILY BLADDER 08/25/25 10/06/25 History tablet,extended release 24 hr benztropine 0.5 mg tablet 0.5 mg PO BID MUSCLE SPASMS 30 08/27/25 10/06/25 Rx days #60 tabs insulin lispro 100 unit/mL 20 unit (0.2 mL) subcut ACHS DM 30 08/27/25 10/06/25 Rx subcutaneous pen days #15 mL Lactobacillus acidophilus 0.5 mg 0.5 mg PO DAILY SUPPLEMENT 10/07/25 10/06/25 History (100 million cell) tablet benzonatate 100 mg capsule 200 mg PO TID PRN cough 10/07/25 Unknown History chlorhexidine gluconate 4 % 1 applic topical DAILY PRN open 10/07/25 Unknown History topical liquid (Merary-Hex) area leg cholecalciferol (vitamin D3) 1,250 1,250 mcg PO QWEEK SUPPLEMENT 10/07/25 10/01/25 History mcg (50,000 unit) capsule insulin glargine U-300 conc 300 75 unit subcut BID BLOOD SUGAR 10/07/25 10/06/25 History unit/mL (3 mL) subcutaneous pen (Toujeo Max U-300 SoloStar) ipratropium bromide 42 mcg (0.06 2 spray intranasal 4X/DAY PRN 10/07/25 Unknown History %) nasal spray allergy symptoms lactulose 10 gram/15 mL oral 40 g PO BID constipation 10/07/25 10/06/25 History solution (Enulose) lidocaine 4 % topical cream 1 applic topical DAILY PRN pain 10/07/25 Unknown History loperamide 2 mg capsule 2 mg PO 4X/DAY PRN loose stool 10/07/25 Unknown History naratriptan 2.5 mg tablet 2.5 mg PO PRN migraine 10/07/25 Unknown History paliperidone palm (3 month) 819 819 mg IM .EVERY 3 MONTH MOOD 10/07/25 Unknown History mg/2.63 mL intramuscular syringe (InvDiet4Life Trinza) semaglutide 0.25 mg or 0.5 mg (2 0.25 mg subcut QWEEK BLOOD SUGAR 10/07/25 Unknown History mg/3 mL) subcutaneous pen injector (OzempSonicLiving) tizanidine 4 mg tablet 4 mg PO BID PRN muscle spasticity 10/07/25 Unknown History trospium 20 mg tablet 20 mg PO BID BLADDER 10/07/25 10/06/25 History valbenazine 40 mg capsule 40 mg PO QHS 10/08/25 Unknown History (Ingrezza) Allergy/AdvReac Type Severity Reaction Status Date / Time meloxicam Allergy Severe Anaphylaxis Verified 10/18/25 19:28 vancomycin Allergy Severe BURNING Verified 10/18/25 19:28 RED RASH ON LEGGS amlodipine (From Norvasc) Allergy Swelling Verified 10/18/25 19:28 cefazolin sodium (From Anc) Allergy Hives Verified 10/18/25 19:28 fexofenadine (From Nia) Allergy Shortness Verified 10/18/25 19:28 of breath nitrofurantoin (From Allergy Hives Verified 10/18/25 19:28 Macrobid) Penicillins Allergy Hives Verified 10/18/25 19:28 sumatriptan (From Imitrex) Allergy Shortness Verified 10/18/25 19:28 of breath adhesive AdvReac BURNING Verified 10/18/25 19:28 amitriptyline (From Elavil) AdvReac Other Verified 10/18/25 19:28 clindamycin AdvReac Diarrhea Verified 10/18/25 19:28 ziprasidone (From Geodon) AdvReac NEEDS Verified 10/18/25 19:28 FOLLOW-UP Family History Father CVA (cerebral vascular accident) Heart disease Mother Heart disease Surgical History History of elbow surgery (~06/2020) History of arthroscopic knee surgery History of left heart catheterization (07/16/20) Kidney stone H/O hernia repair Hx of hysterectomy Hx of section Social History household members: family housing: house Smoking Status: Never smoker alcohol intake: never substance use type: does not use caffeine: Yes (occasionally) ROS Constitutional Constitutional: Reports fatigue; Denies change in weight or fever(s) Eyes Eyes: Denies blurry vision Cardiovascular Cardiovascular: Denies chest pain or edema Respiratory/Chest Respiratory/Chest: Denies excessive phlegm production Gastrointestinal Gastrointestinal: Denies abdominal pain or constipation Genitourinary Genitourinary: Denies difficulty urinating or dysuria Musculoskeletal Musculoskeletal: Denies joint swelling Neurologic Neurologic: Denies abnormal speech, confusion or numbness Hematologic/Lymphatic Hematologic/Lymphatic: Denies easy bleeding Vital Signs Vital Signs Vital Signs: 10/18/25 19:24 10/18/25 20:50 Temperature 98.2 F 99.1 F Temperature Source Oral Pulse Rate 80 73 Respiratory Rate 18 20 H Blood Pressure 102/90 H 156/79 H Blood Pressure Mean 94 104 Pulse Ox 98 99 Oxygen Delivery Method Nasal Cannula Oxygen Flow Rate (L/min) 3 Weight Weight: 139.6 kg Body Mass Index (BMI) 51.2 Physical Exam Const alert and oriented x3 HEENT normocephalic and head/scalp atraumatic Resp clear to auscultation bilaterally Resp Narrative: Mildly increased respiratory effort but she said that is her baseline Cardio regular rate, regular rhythm and no murmurs GI non-tender GI Narrative: Obese abdomen Extremity normal to inspection and full ROM Neuro oriented x3, moves all extremities and no focal motor deficits Results Lab / Micro Data 10/18/25 19:50 10/18/25 19:50 Labs: Laboratory Results - last 24 hr 10/18/25 19:50: WBC 7.4, RBC 3.34 L, Hgb 9.8 L, Hct 31.0 L, MCV 92.8, MCH 29.3, MCHC 31.6 L, RDW Std Deviation 47.5 H, RDW Coeff of Jocy 14.0, Plt Count 151, MPV 9.2, Immature Gran % (Auto) 0.700, Neut % (Auto) 84.8 H, Lymph % (Auto) 9.1 L, [place] % (Auto) 5.4, Eos % (Auto) 0.0, Baso % (Auto) 0.0, Absolute Neuts (auto) 6.2, Absolute Lymphs (auto) 0.67 L, Nucleated RBC % 0, Sodium 144, Potassium 4.3, Chloride 100, Carbon Dioxide 34.2 H, Anion Gap 9, BUN 15, Creatinine 0.65 L, Estim Creat Clear Calc 129.65, Est GFR (MDRD) Non-Af 100, BUN/Creatinine Ratio 22.7 H, Glucose 160 H, Calcium 9.2, Total Bilirubin 0.21, AST 19, ALT 21, Alkaline Phosphatase 55, Total Protein 6.8, Albumin 3.8, Globulin 3.0, Albumin/Globulin Ratio 1.3 Rhythm Strip Rhythm Strip: Sinus Rhythm Rate: 76 Ectopy: None Assessment & Plan Assessment/Plan (1) Ambulatory dysfunction: (2) Physical deconditioning: (3) Chronic hypoxic respiratory failure: (4) (HFpEF) heart failure with preserved ejection fraction: QUALIFIERS: Heart failure chronicity: chronic Qualified Code(s): I50.32 - Chronic diastolic (congestive) heart failure (5) Morbid obesity: (6) Diabetes mellitus type 2, uncontrolled, with complications: PLAN: Plan 60-year-old female comes in with generalized lower extremity weakness, fatigue and limited ability at ambulation even for a short distance at home. Patient was recently discharged after an admission for similar presentation and she decided for home health although rehab was recommended Legs weakness: Progressive, due to a combination of motor neuropathy and physical deconditioning from limited ambulation due to chronic cardiopulmonary conditions and obesity. PT OT evaluation and rehab placement. COPD with chronic hypoxic respiratory failure: Stable on home 3 L nasal cannula at this time. Continue home inhalers. Type 2 diabetes mellitus with neuropathy: Most recent A1c 12.4% on August 2025. Treat with reduced home regimen here of Lantus 60 units twice daily and Humalog 15 units with meals plus sliding scale insulin, adjust as needed. Continue home pregabalin, patient currently denies tingling or pain symptoms Heart failure preserved EF: Compensated. No edema. No need for diuresis at the moment Hypertension: Continue lisinopril and nadolol. Blood pressure is under control Left leg wound: Continue Aqualcel with dry sterile dressing for wound care Tremors: Was prescribed benztropine and primidone. Currently asymptomatic Schizoaffective disorder: Stable. Continue home bupropion, BuSpar, escitalopram, and lorazepam. GERD: Continue home PPI. Overactive bladder: Continue home oxybutynin. Charges/Coding Visit Charges Inpatient E&M: 06612 Init Hosp L2
[2025-10-18 23:06] VITALS: BP 169/87; PULSE 71; RESP 20; TEMP 36.7; O2SAT 98
[2025-10-18 23:24] VITALS: PULSE 74; RESP 20; O2SAT 97
[2025-10-18] MEDS: Albuterol 2.5 MG/3 ML VIAL.NEB. INHALATION (23:24)
[2025-10-19] VITALS (7 sets, daily range): BP systolic 111–150; BP diastolic 59–83; PULSE 65–73; RESP 16–20; TEMP 36.7–36.8; O2SAT 95–98
[2025-10-19] MEDS: Albuterol 2.5 MG/3 ML VIAL.NEB. INHALATION ×3 (06:50→19:08)
[2025-10-19] MEDS: Budesonide Respules 0.5 MG/2 ML AMPUL.NEB. INHALATION ×2 (06:50→19:08)
--- NOTE | 2025-10-19 07:51 | PN.HOSP_ITS ---
Subjective Subjective No issues overnight, denies any pain. Still feels pretty weak Objective Data Objective Data Vital Signs: Vital Signs Temp Pulse Resp BP Pulse Ox O2 Del Method O2 Flow Rate 98.2 F 65 16 111/59 L 96 Nasal Cannula 3 10/19/25 05:20 10/19/25 06:51 10/19/25 06:51 10/19/25 05:20 10/19/25 06:51 10/19/25 06:51 10/19/25 06:51 Oxygen Flow Rate (L/min) 3 Oxygen Delivery Method Nasal Cannula Weight: 307 lb 12.245 oz Body Mass Index (BMI) 51.2 Intake & Output: Intake and Output for Last 24 Hours 10/18/25 10/19/25 10/20/25 03:59 03:59 03:59 Intake Total 220 / 220 Output Total 200 / 200 Balance 220 / 220 -200 / -200 Lab / Micro Data 10/18/25 19:50 10/18/25 19:50 Labs: Laboratory Results - last 24 hr 10/18/25 19:50: WBC 7.4, RBC 3.34 L, Hgb 9.8 L, Hct 31.0 L, MCV 92.8, MCH 29.3, MCHC 31.6 L, RDW Std Deviation 47.5 H, RDW Coeff of Jocy 14.0, Plt Count 151, MPV 9.2, Immature Gran % (Auto) 0.700, Neut % (Auto) 84.8 H, Lymph % (Auto) 9.1 L, [place] % (Auto) 5.4, Eos % (Auto) 0.0, Baso % (Auto) 0.0, Absolute Neuts (auto) 6.2, Absolute Lymphs (auto) 0.67 L, Nucleated RBC % 0, Sodium 144, Potassium 4.3, Chloride 100, Carbon Dioxide 34.2 H, Anion Gap 9, BUN 15, Creatinine 0.65 L , Estim Creat Clear Calc 129.65, Est GFR (MDRD) Non-Af 100, BUN/Creatinine Ratio 22.7 H, Glucose 160 H, Calcium 9.2, Total Bilirubin 0.21, AST 19, ALT 21, Alkaline Phosphatase 55, Total Protein 6.8, Albumin 3.8, Globulin 3.0, Albumin/Globulin Ratio 1.3 10/18/25 23:03: POC Glucose 82 10/19/25 06:26: POC Glucose 120 H Rhythm Strip Rhythm Strip: Sinus Rhythm Rate: 76 Ectopy: None Physical Exam Narrative General: Alert, Oriented x3, Cooperative, No apparent distress HEENT: Atraumatic, PERRLA, EOMI, Normocephalic Oral: Moist Mucosa Neck: Supple, No JVD Lungs: Diminished, Normal air movement, No rhonchi, No wheeze, No rales Cardiovascular: Regular rate, Regular Rhythm, Normal S1, Normal S2, No murmurs Abdomen: Soft, Non Tender, Non-Distended, No Hepato-splenomegaly Extremities: No edema, Capillary Refill Less than 3 Seconds Skin: Left lower extremity wound dressed Musculoskeletal: No Tenderness to Palpation of Joints or Extremities Neurological: No focal neurological deficits, moves all extremities Psych/Mental Status: Flat Assessment & Plan Assessment/Plan (1) Ambulatory dysfunction: (2) Physical deconditioning: PLAN: Plan 1. Generalized weakness and debility with inability to complete ADLs – PT/OT – Will consult case management for possible placement – All lab work appears unremarkable 2. Chronic diastolic CHF/essential HTN/HLD – Continue with her home medications – Will monitor her blood pressures and make adjustments as necessary 3. COPD with chronic hypoxic respiratory failure – Currently on her home 3 L – Continue with her home inhalers 4. DM2 – Insulin – Accu-Cheks – Will monitor make adjustments as necessary DVT: Lovenox Charges/Coding Visit Charges Inpatient E&M: 13414 Subs Hosp L2
[2025-10-19] MEDS: buPROPion (XL) 300 MG TABLET.XL PO (10:55)
[2025-10-19] MEDS: Tolterodine Tartrate 4 MG CAP.SA PO (10:57)
[2025-10-19] MEDS: Insulin Glargine-YFGN 100 UNIT/ML Pen 60 UNIT SC ×2 (11:13→22:28)
[2025-10-19] MEDS: Juven (unflavored) Packet 1 PACKET PO (16:59)
[2025-10-19] MEDS: Glucerna Shake 120 ML LIQUID PO ×2 (17:44→22:22)
[2025-10-19] MEDS: VALBENAZINE TOSYLATE 40 MG CAPSULE PO ×2 (22:10)
[2025-10-20] VITALS (7 sets, daily range): BP systolic 130–151; BP diastolic 68–81; PULSE 60–88; RESP 16–20; TEMP 36.3–36.6; O2SAT 95–100
[2025-10-20] MEDS: 0.9% Saline Lock 10 ML Syringe IV ×2 (05:51→21:04)
[2025-10-20] MEDS: Budesonide Respules 0.5 MG/2 ML AMPUL.NEB. INHALATION ×2 (06:58→19:22)
[2025-10-20] MEDS: Albuterol 2.5 MG/3 ML VIAL.NEB. INHALATION ×3 (06:58→19:22)
[2025-10-20 07:20] LABS: Hematocrit 29.9 % (37-47); Hemoglobin 9.1 g/dL (12.0-15.0); Immature Granulocytes Count 0.030 X10^3/uL (0.0-0.0); Mean Corp Hgb Conc 30.4 g/dL (32-36); Mean Corpuscular Volume 94.9 fL (81-99); Mean Platelet Vol. 9.3 fl (6.2-12.0); NRBC Flagged by Analyzer 0 % (0-5); Platelet Count 144 K/mm3 (150-450); RBC Distribution Width CV 13.8 % (11.6-14.6); RBC Distribution Width SD 47.0 fl (35.1-43.9); Red Blood Count 3.15 M/mm3 (4.2-5.4); White Blood Count 4.2 K/mm3 (4.4-11.0)
[2025-10-20 08:10] LABS: Anion Gap 7 (5-15); BUN 20 mg/dL (4-19); BUN/Creat Ratio 33.2 RATIO (10-20); Calcium,Total 9.1 mg/dL (7.6-11.0); Carbon Dioxide 34.6 mmol/L (21.0-32.0); Chloride 99 mmol/L (98-108); Estimated Creatinine Clearance 138.19 ml/min (50-250); Glucose 112 mg/dL (70-99); Potassium 4.4 mmol/L (3.3-5.1)
--- NOTE | 2025-10-20 09:25 | WOUNDNOTE ---
wound photo: left lower leg
[2025-10-20] MEDS: Tolterodine Tartrate 4 MG CAP.SA PO (10:10)
[2025-10-20] MEDS: buPROPion (XL) 300 MG TABLET.XL PO (10:11)
[2025-10-20] MEDS: Insulin Glargine-YFGN 100 UNIT/ML Pen 60 UNIT SC ×2 (10:22→21:18)
--- NOTE | 2025-10-20 11:05 | PN_ITS ---
Subjective Subjective Patient seen and examined with her nurse by her bedside. She had no active complaints. She is on 3L of oxygen which is her baseline. Review of systems is otherwise negative. She has remained hemodynamically stable. Hb is 9.1. Objective Data Objective Data Vital Signs: Vital Signs Temp Pulse Resp BP Pulse Ox O2 Del Method O2 Flow Rate 97.4 F L 64 18 147/68 H 97 Nasal Cannula 3 10/20/25 10:32 10/20/25 10:32 10/20/25 10:32 10/20/25 10:32 10/20/25 10:32 10/20/25 10:32 10/20/25 10:32 Oxygen Flow Rate (L/min) 3 Oxygen Delivery Method Nasal Cannula Weight: 307 lb 12.245 oz Body Mass Index (BMI) 51.2 Intake & Output: Intake and Output for Last 24 Hours 10/18/25 10/19/25 10/20/25 23:59 23:59 23:59 Intake Total 580 / 580 Output Total 400 / 400 Balance 180 / 180 Lab / Micro Data 10/20/25 06:55 10/20/25 06:55 Labs: Laboratory Results - last 24 hr 10/19/25 11:11: POC Glucose 155 H 10/19/25 16:36: POC Glucose 125 H 10/19/25 22:02: POC Glucose 170 H 10/20/25 05:46: POC Glucose 112 H 10/20/25 06:55: WBC 4.2 L, RBC 3.15 L, Hgb 9.1 L, Hct 29.9 L, MCV 94.9, MCH 28.9, MCHC 30.4 L, RDW Std Deviation 47.0 H, RDW Coeff of Jocy 13.8, Plt Count 144 L, MPV 9.3, Immature Gran % (Auto) 0.700, Neut % (Auto) 69.0, Lymph % (Auto) 20.3, [place] % (Auto) 9.8, Eos % (Auto) 0.0, Baso % (Auto) 0.2, Absolute Neuts (auto) 2.9, Absolute Lymphs (auto) 0.85, Nucleated RBC % 0, Sodium 141, Potassium 4.4, Chloride 99, Carbon Dioxide 34.6 H, Anion Gap 7, BUN 20 H, C reatinine 0.60 L, Estim Creat Clear Calc 138.19, Est GFR (MDRD) Non-Af 101, B UN/Creatinine Ratio 33.2 H, Glucose 112 H, Calcium 9.1 Rhythm Strip Rhythm Strip: Sinus Rhythm Rate: 76 Ectopy: None Physical Exam Const alert, oriented x3 and no apparent distress Constitutional Narrative: class III obesity General Appearance: cooperative HEENT normocephalic, head/scalp atraumatic, moist oral mucous membranes and oropharynx normal Eyes EOMs intact bilaterally Neck supple and no JVD Lymph Lymphatic: no lymphedema noted Resp Resp Narrative: mildly diminished breath sounds bibasally, no wheezes or crackles. On 3L of oxygen by nasal canula Cardio regular rate, regular rhythm, S1 normal heart sound, S2 normal heart sound and no murmurs GI normal to inspection, nondistended, normoactive bowel sounds, soft to palpation and non-tender GI Narrative: obese abdomen Extremity no calf tenderness Skin General Skin Exam: no breakdown Neuro no focal motor deficits and no sensory deficits noted Motor Exam: general weakness Psych thought process normal, cooperative and affect normal Appearance: appropriate Assessment & Plan Assessment/Plan (1) Physical deconditioning: (2) Adult failure to thrive: PLAN: Plan #Debility and weakness with failure to thrive * PT OT on board. Fall precautions. #Chronic heart failure with preserved ejection fraction: Not in exacerbation. On Lasix #Chronic respiratory failure due to COPD: On 3 L of oxygen which is her baseline. Breathing treatments bronchodilators. #Type 2 diabetes mellitus: On Lantus. Insulin sliding scale. Accu-Cheks ACHS. #History of gout: On allopurinol #Depression and anxiety: On buspirone and bupropion #History of schizophrenia: On Invega #Hypertension: On lisinopril DVT prophylaxis: Lovenox Disposition: Awaiting placement. Charges/Coding Visit Charges Inpatient E&M: 81117 Subs Hosp L2
--- NOTE | 2025-10-20 11:54 | CASEMGMT ---
Discharge Planning A list of SNF providers including quality and resource use data and consistent with the patient's preferred geographic region, medical needs, and insurance network was created in [facility] Guide. This list was provided to the SW. Nat Gtz Discharge Planning Asst.
--- NOTE | 2025-10-20 13:09 | CASEMGMT ---
Addendum entered by Isamar Pabon 10/20/25 16:33: SHIVA updated hospitalist 3:19PM. SW awaiting transfer for LOC. PASRR completed. MADAN Key Addendum entered by Isamar Pabon 10/20/25 15:09: SW received notice that [facility] and [facility] accepted. SHIVA presented determinations to pt. Pt selected [facility]. SHIVA updated DCA. SHIVA to complete LOC. MADAN Key Original Note: Social Work- SHIVA met with pt and pt father to discuss discharge planning. SW introduced self and role. Pt reports that she would like referrals to [facility], [place],, and [facility]. Pt reports that she plans to d/c home with C following SNF stay. SHIVA notified [facility] of referral request. SHIVA remains available to follow. MADAN Key
--- NOTE | 2025-10-20 14:14 | CASEMGMT ---
Addendum entered by Nat Gtz 10/20/25 15:12: [facility] and [facility] accepted. [facility]. [facility] notified that they are foc. [facility] asked to cancel referral. will obtain passr/loc. Original Note: Discharge Planning Referral sent via [facility] to [facility], [facility], and [facility] [place]. Nat Gtz DC Planning Asst.
--- NOTE | 2025-10-20 14:27 | CHAPLAIN ---
Type of Pastoral Visit _x__ Initial Visit ___ Follow-up Visit ___ On-call Visit ___ General Patient Visit ___ Spiritual Assessment ___ Family Conference ___ Bereavement ___ Rapid Response ___ Code Blue ___ Other (describe below) Pastoral Care Referral From _x__ Patient _x__ Family ___ Nurse ___ Physician ___ Science Interpreter ___ Box Hinge And Lock Attacher ___ Other (describe below) Sacrament/Intervention _x__ Active listening ___ Anointing ___ Restorationist ___ Bereavement ___ Communion ___ Rianna exploration ___ ___ Life review ___ Prayer ___ Reconciliation ___ Sacrament of Sick ___ Supportive presence ___ Wedding ___ Other (describe below) Pastoral Comments
[2025-10-20] MEDS: Glucerna Shake 120 ML LIQUID PO ×3 (14:48→21:12)
[2025-10-20] MEDS: VALBENAZINE TOSYLATE 40 MG CAPSULE PO (21:02)
[2025-10-21] VITALS (7 sets, daily range): BP systolic 106–144; BP diastolic 63–73; PULSE 63–76; RESP 16–20; TEMP 36.4–37.3; O2SAT 95–99
[2025-10-21] MEDS: Albuterol 2.5 MG/3 ML VIAL.NEB. INHALATION ×2 (04:46→16:25)
[2025-10-21] MEDS: Budesonide Respules 0.5 MG/2 ML AMPUL.NEB. INHALATION (04:47)
[2025-10-21 06:32] LABS: Hematocrit 28.4 % (37-47); Hemoglobin 9.1 g/dL (12.0-15.0); Immature Granulocytes Count 0.040 X10^3/uL (0.0-0.0); Mean Corp Hgb Conc 32.0 g/dL (32-36); Mean Corpuscular Volume 93.4 fL (81-99); Mean Platelet Vol. 10.1 fl (6.2-12.0); NRBC Flagged by Analyzer 0 % (0-5); Platelet Count 137 K/mm3 (150-450); RBC Distribution Width CV 13.7 % (11.6-14.6); RBC Distribution Width SD 46.2 fl (35.1-43.9); Red Blood Count 3.04 M/mm3 (4.2-5.4); White Blood Count 5.1 K/mm3 (4.4-11.0)
[2025-10-21 07:14] LABS: Anion Gap 10 (5-15); BUN 16 mg/dL (4-19); BUN/Creat Ratio 26.2 RATIO (10-20); Calcium,Total 9.1 mg/dL (7.6-11.0); Carbon Dioxide 31.5 mmol/L (21.0-32.0); Chloride 98 mmol/L (98-108); Estimated Creatinine Clearance 133.73 ml/min (50-250); Glucose 118 mg/dL (70-99); Potassium 4.8 mmol/L (3.3-5.1)
[2025-10-21] MEDS: Tolterodine Tartrate 4 MG CAP.SA PO (09:36)
[2025-10-21] MEDS: buPROPion (XL) 300 MG TABLET.XL PO (09:41)
--- NOTE | 2025-10-21 10:19 | PCM.TXEXTCAR ---
Diet Diet Order/Speech Therapy: INPATIENT Hospital Diet / Speech Therapy Order(s) 10/19/25 09:54 Diet: Cardiac: Calorie-Controlled Type of Dietary Supplement:: Wilfredo Diet Comments: Wilfredo tropical flavor with lunch and dinner How many daily calories?: 2000 calorie Routine Orders/Code Status Enema Type: Fleetz Enema Frequency: Daily PRN Suppository Type: Dulcolax 10mg Suppository Frequency: Daily PRN DC O2, CPAP, BIPAP needs Home O2 Discharge instructions: No Wound(s) Left leg: Wound Type: Skin Tear left lower leg: Wound Type: Stasis Ulcer Dressing Change: Latisha Therapies Weight Bearing: Weight bearing as tolerated Physical Therapy: Eval and Treat Occupational Therapy: Eval and Treat Problem/Diagnosis (1) Physical deconditioning: Status: Acute Code(s): R53.81 - Other malaise (2) Adult failure to thrive: Status: Acute Code(s): R62.7 - Adult failure to thrive Plan #Debility and weakness with failure to thrive PT OT on board. Fall precautions. #Chronic heart failure with preserved ejection fraction: Not in exacerbation. On Lasix #Chronic respiratory failure due to COPD: On 3 L of oxygen which is her baseline. Breathing treatments bronchodilators. #Type 2 diabetes mellitus: On Lantus. Insulin sliding scale. Accu-Cheks ACHS. #History of gout: On allopurinol #Depression and anxiety: On buspirone and bupropion #History of schizophrenia: On Invega #Hypertension: On lisinopril DVT prophylaxis: Lovenox Disposition: Awaiting placement. Allergies/Procedures Done in Hospital Allergies meloxicam Allergy (Severe, Verified 10/18/25 19:28) Anaphylaxis vancomycin Allergy (Severe, Verified 10/18/25 19:28) BURNING RED RASH ON LEGGS amlodipine (From Norvasc) Allergy (Verified 10/18/25 19:28) Swelling cefazolin sodium (From Ancef) Allergy (Verified 10/18/25 19:28) Hives fexofenadine (From Nia) Allergy (Verified 10/18/25 19:28) Shortness of breath nitrofurantoin (From Macrobid) Allergy (Verified 10/18/25 19:28) Hives Penicillins Allergy (Verified 10/18/25 19:28) Hives per pt this was a past reaction, and she has taken recently w/o problem sumatriptan (From Imitrex) Allergy (Verified 10/18/25 19:28) Shortness of breath adhesive Adverse Reaction (Verified 10/18/25 19:28) BURNING DUODERM amitriptyline (From Elavil) Adverse Reaction (Verified 10/18/25 19:28) Other hallucinations clindamycin Adverse Reaction (Verified 10/18/25 19:28) Diarrhea ziprasidone (From Geodon) Adverse Reaction (Verified 10/18/25 19:28) NEEDS FOLLOW-UP severe headache Procedures: None Type of Care/Length of Stay Estimated LOS: Convalescent Care Less Than 30 days Type of Care Needed: Skilled Rehab Potential: Fair Prognosis: Fair Additional Orders/Day of Discharge Day of Discharge: 10/21/25 Dietary and Speech Recommendations Dietitian Recommendations/Changes: Recommend diet change to Cardiac: Calorie-Controlled 2000kcal diet to better manage blood glucose levels. Will also trial Wilfredo BID with meals (lunch and dinner - tropical flavor) to promote wound healing. Pt would also like Glucerna (chocolate) 120mL 4x/day with medpass to improve intakes. Will continue to follow, monitor oral intakes and modify nutrition interventions as needed. Discharge Plan Admission Admit Date/Time: 10/18/25 21:39 Primary Reason for Your Visit: failure to thrive, debility Attending Provider: Adeline Guerrero Primary Care Provider: Cristal Wolf Consulting Providers: Ki Marti; Salinas Heard Instructions Patient Instructions: ED FALL-from [facility] Discharge Orders/Prescriptions Prescriptions: Continued omeprazole 40 mg capsule,delayed release(DR/EC) 40 mg PO DAILY pregabalin 150 mg capsule 150 mg PO TID ergocalciferol (vitamin D2) [Vitamin D2] 1,250 mcg (50,000 unit) capsule 50,000 unit PO QMONTH acetaminophen 500 mg tablet 1,000 mg PO TID lidocaine [Aspercreme (lidocaine)] 4 % adhesive patch,medicated 1 patch topical QDAY Rx Instructions: right hip bupropion HCl 300 MG tablet extended release 24 hr 300 mg PO DAILY Patient Comments: DEPRESSION albuterol sulfate 1 INHALER inhaler 2 puff INHALATION Q4H PRN (Reason: Sob &/Or Wheezing) aspirin 81 MG tablet,chewable 81 mg PO DAILY@0800 0RF cetirizine [Zyrtec] 10 mg Tablet 10 mg PO DAILY primidone 250 mg Tablet 750 mg PO QHS buspirone 10 mg Tablet 20 mg PO TID guaifenesin [Mucinex] 600 mg Tablet Extended Release 12hr 1,200 mg PO BID PRN (Reason: Cough) fluticasone propion-salmeterol 500-50 mcg/dose blister with device 1 inh INHALATION BID ondansetron 4 MG tablet 4 mg PO Q8H PRN (Reason: Nausea) trazodone 150 mg tablet 150 mg PO QHS Patient Comments: pt states she takes 1/2tab lisinopril 10 mg tablet 10 mg PO DAILY Rx Instructions: do not take if blood pressure < 100/60 escitalopram oxalate 20 mg tablet 20 mg PO DAILY cholecalciferol (vitamin D3) 1,250 mcg (50,000 unit) capsule 1,250 mcg PO QWEEK Patient Comments: every monday Invega Trinza 819 mg/2.63 mL syringe 819 mg IM .EVERY 3 MONTH Patient Comments: LAST SHOT IN AUGUST. TAKES EVERY 3 MONTHS. NEXT SHOT IS DUE IN NOVEMBER Lactobacillus acidophilus 0.5 mg (100 million cell) tablet 0.5 mg PO DAILY insulin glargine U-300 conc [Toujeo Max U-300 SoloStar] 300 unit/mL (3 mL) insulin pen 75 unit SUBCUT BID Patient Comments: [NO ORIGINAL SIG] benzonatate 100 mg capsule 200 mg PO TID PRN (Reason: cough) chlorhexidine gluconate [Mearry-Hex] 4 % liquid 1 applic TOPICAL DAILY PRN (Reason: open area leg) Patient Comments: [NO ORIGINAL SIG] lactulose [Enulose] 10 gram/15 mL solution 40 g PO BID lidocaine 4 % cream 1 applic topical DAILY PRN (Reason: pain) loperamide 2 mg capsule 2 mg PO 4X/DAY PRN (Reason: loose stool) Rx Instructions: can take up to 4 times a day if needed ipratropium bromide 42 mcg (0.06 %) spray,non-aerosol 2 spray intranasal 4X/DAY PRN (Reason: allergy symptoms) Rx Instructions: administer into each nostril naratriptan 2.5 mg tablet 2.5 mg PO PRN tizanidine 4 mg tablet 4 mg PO BID PRN (Reason: muscle spasticity) trospium 20 mg tablet 20 mg PO BID Ozempic 0.25 mg or 0.5 mg (2 mg/3 mL) pen injector 0.25 mg subcut QWEEK Patient Comments: PT TAKES ON TUESDAYS Rx Instructions: for 4 weeks Ingrezza 40 mg capsule 40 mg PO QHS Rx Instructions: pt has her own medication here albuterol sulfate 2.5 mg /3 mL (0.083 %) solution for nebulization 2.5 mg inhalation Q6H PRN (Reason: shortness of breath or wheezing) allopurinol 100 mg tablet 100 mg PO DAILY oxybutynin chloride 15 mg tablet extended release 24hr 15 mg PO DAILY miconazole nitrate 2 % cream 1 applic topical BID dicyclomine 20 mg tablet 20 mg PO TID montelukast 10 mg tablet 10 mg PO QHS lorazepam 1 mg tablet 1 mg PO BID hydroxyzine pamoate 25 mg capsule 25 mg PO BID PRN (Reason: itching/anxiety) Rx Instructions: take 2-3 capsules by mouth twice daily as needed for itching/rash or anxiety hydrocodone-acetaminophen 7.5-325 mg tablet 1 tab PO Q6H PRN (Reason: pain) Patient Comments: PT STATES SHE TAKES ONCE DAILY Rx Instructions: up to 7 days OXYGEN - Supplemental ([facility] INFORMATIONAL USE ONLY) Patient Comments: home oxygen through [employer]. Verified 3L @ rest and 5L with exertion via NC-per CM pervious admissions note benztropine 0.5 mg Tablet 0.5 mg PO BID 30 Days Qty: 60 0RF insulin lispro 100 unit/mL insulin pen 20 unit subcut ACHS 30 Days Qty: 15 0RF Patient Comments: PT STATES SHE ONLY TAKES WITH MEALS AND TAKES 22 UNITS FOR THE SUPPER DOSE Rx Instructions: Max daily insulin lispro 60 units nadolol 80 mg tablet 40 mg PO BID Referrals / Follow Up: Cristal Wolf MD [Primary Care Provider, Internal Medicine] - Within 1 Week Disposition Disposition (needs filled in before D/C Order can be placed): Longterm Facility
--- NOTE | 2025-10-21 10:20 | PN_ITS ---
Subjective Subjective Patient seen and examined. She had no active complaints. She is awaiting placement. She has remained hemodynamically stable. Review of systems is otherwise negative. Objective Data Objective Data Vital Signs: Vital Signs Temp Pulse Resp BP Pulse Ox O2 Del Method O2 Flow Rate 99.2 F H 73 17 130/63 H 95 Nasal Cannula 3 10/21/25 08:24 10/21/25 08:24 10/21/25 08:24 10/21/25 08:24 10/21/25 09:21 10/21/25 09:21 10/21/25 09:21 Oxygen Flow Rate (L/min) 3 Oxygen Delivery Method Nasal Cannula Weight: 307 lb 12.245 oz Body Mass Index (BMI) 51.2 Intake & Output: Intake and Output for Last 24 Hours 10/19/25 10/20/25 10/21/25 23:59 23:59 23:59 Intake Total 580 / 580 480 / 480 Output Total 400 / 400 Balance 180 / 180 480 / 480 Lab / Micro Data 10/21/25 05:55 10/21/25 05:55 Labs: Laboratory Results - last 24 hr 10/20/25 10:19: POC Glucose 157 H 10/20/25 17:01: POC Glucose 182 H 10/20/25 21:18: POC Glucose 202 H 10/21/25 05:55: WBC 5.1, RBC 3.04 L, Hgb 9.1 L, Hct 28.4 L, MCV 93.4, MCH 29.9, MCHC 32.0 D, RDW Std Deviation 46.2 H, RDW Coeff of Jocy 13.7, Plt Count 137 L, MPV 10.1, Immature Gran % (Auto) 0.800, Neut % (Auto) 75.6 H, Lymph % (Auto) 13.5 L, Crisp % (Auto) 10.1 H, Eos % (Auto) 0.0, Baso % (Auto) 0.0, Absolute Neuts (auto) 3.9, Absolute Lymphs (auto) 0.69 L, Nucleated RBC % 0, Sodium 140, Potassium 4.8, Chloride 98, Carbon Dioxide 31.5, Anion Gap 10, BUN 16, C reatinine 0.62 L, Estim Creat Clear Calc 133.73, Est GFR (MDRD) Non-Af 101, B UN/Creatinine Ratio 26.2 H, Glucose 118 H, Calcium 9.1 10/21/25 06:47: POC Glucose 123 H 10/21/25 09:34: POC Glucose 186 H Rhythm Strip Rhythm Strip: Sinus Rhythm Rate: 76 Ectopy: None Physical Exam Const alert, oriented x3 and no apparent distress Constitutional Narrative: class III obesity General Appearance: cooperative HEENT normocephalic, head/scalp atraumatic, moist oral mucous membranes and oropharynx normal Eyes EOMs intact bilaterally Neck supple and no JVD Lymph Lymphatic: no lymphedema noted Resp Resp Narrative: mildly diminished breath sounds bibasally, no wheezes or crackles. On 3L of oxygen by nasal canula Cardio regular rate, regular rhythm, S1 normal heart sound, S2 normal heart sound and no murmurs GI normal to inspection, nondistended, normoactive bowel sounds, soft to palpation and non-tender GI Narrative: obese abdomen Extremity normal to inspection, full ROM and no calf tenderness Skin General Skin Exam: no breakdown Neuro oriented x3, moves all extremities, no focal motor deficits and no sensory deficits noted Motor Exam: general weakness Psych thought process normal, cooperative and affect normal Appearance: appropriate Assessment & Plan Assessment/Plan (1) Physical deconditioning: (2) Adult failure to thrive: PLAN: Plan #Debility and weakness with failure to thrive * PT OT on board. * Fall precautions. #Chronic heart failure with preserved ejection fraction: Not in exacerbation. On Lasix #Chronic respiratory failure due to COPD: On 3 L of oxygen which is her baseline. Breathing treatments bronchodilators. #Type 2 diabetes mellitus: On Lantus. Insulin sliding scale. Accu-Cheks ACHS. #History of gout: On allopurinol #Depression and anxiety: On buspirone and bupropion #History of schizophrenia: On Invega #Hypertension: On lisinopril DVT prophylaxis: Lovenox Disposition: Still awaiting placement. Charges/Coding Visit Charges Inpatient E&M: 03927 Subs Hosp L2
--- NOTE | 2025-10-21 10:23 | CASEMGMT ---
Social Work SW received a call regarding pt from her case reviewer Richa Tam. SW updated her that the plan is for pt to go to [facility], we are waiting for a level of care. Richa asked SHIVA to update her when pt is d/c. SW let the SW on MS3 know. SANDRA Tatum
[2025-10-21] MEDS: Glucerna Shake 120 ML LIQUID PO (10:32)
--- NOTE | 2025-10-21 10:33 | CASEMGMT ---
Addendum entered by Isamar Pabon 10/21/25 13:57: SW called [facility] to check on LOC review. LOC is currently being reviewed. Pt and pt father updated. MADAN Key Original Note: Social Work- LOC submitted for CC placement under skilled level of care. Pt updated. MADAN Key
[2025-10-21] MEDS: Insulin Glargine-YFGN 100 UNIT/ML Pen 60 UNIT SC (11:12)
--- NOTE | 2025-10-21 11:38 | PHA.DC_ITS ---
Pharmacy [place] Med Reconciliation Pharmacy Service has performed discharge medication reconciliation for this patient. The patient's discharge medication list was reviewed for discrepancies and discrepancies were resolved. Medications at Discharge Home Medications bupropion HCl 300 mg 24 hr tablet, extended release 300 mg PO DAILY mental health 03/05/17 albuterol sulfate 90 mcg/actuation aerosol inhaler 2 puff inhalation Q4H PRN Sob &/Or Wheezing 05/29/18 aspirin 81 mg chewable tablet 81 mg PO DAILY@0800 heart health 07/17/20 buspirone 10 mg tablet 20 mg PO TID mood 01/25/22 cetirizine 10 mg tablet (Zyrtec) 10 mg PO DAILY allergies 01/25/22 guaifenesin 600 mg tablet, extended release 12 hr (Mucinex) 1,200 mg PO BID PRN Cough 01/25/22 primidone 250 mg tablet 750 mg PO QHS seizures 01/25/22 fluticasone 500 mcg-salmeterol 50 mcg/dose blistr powdr for inhalation 1 inh inhalation BID breathing 05/02/22 omeprazole 40 mg capsule,delayed release 40 mg PO DAILY gerd 05/02/22 ergocalciferol (vitamin D2) 1,250 mcg (50,000 unit) capsule (Vitamin D2) 50,000 unit PO QMONTH bone health 08/10/22 pregabalin 150 mg capsule 150 mg PO TID pain 08/10/22 ondansetron 4 mg disintegrating tablet 4 mg PO Q8H PRN Nausea 10/03/24 trazodone 150 mg tablet 150 mg PO QHS sleep 10/03/24 albuterol sulfate 2.5 mg/3 mL (0.083 %) solution for nebulization 2.5 mg inhalation Q6H PRN shortness of breath or wheezing 02/25/25 escitalopram oxalate 20 mg tablet 20 mg PO DAILY MENTAL HEALTH 03/01/25 acetaminophen 500 mg tablet 1,000 mg PO TID PAIN 04/17/25 lidocaine 4 % topical patch (Aspercreme (lidocaine)) 1 patch topical QDAY 04/17/25 lisinopril 10 mg tablet 10 mg PO DAILY blood pressure 04/17/25 nadolol 80 mg tablet 40 mg PO BID high blood pressure 04/17/25 allopurinol 100 mg tablet 100 mg PO DAILY GOUT 04/21/25 OXYGEN - Supplemental ([facility] INFORMATIONAL USE ONLY) hypoxia 08/25/25 dicyclomine 20 mg tablet 20 mg PO TID IBS 08/25/25 hydrocodone 7.5 mg-acetaminophen 325 mg tablet 1 tab PO Q6H PRN pain 08/25/25 hydroxyzine pamoate 25 mg capsule 25 mg PO BID PRN itching/anxiety 08/25/25 lorazepam 1 mg tablet 1 mg PO BID ANXIETY 08/25/25 miconazole nitrate 2 % topical cream 1 applic topical BID 08/25/25 montelukast 10 mg tablet 10 mg PO QHS ALLERGIES 08/25/25 oxybutynin chloride 15 mg tablet,extended release 24 hr 15 mg PO DAILY BLADDER 08/25/25 benztropine 0.5 mg tablet 0.5 mg PO BID MUSCLE SPASMS 30 days #60 tabs 08/27/25 insulin lispro 100 unit/mL subcutaneous pen 20 unit (0.2 mL) subcut ACHS DM 30 days #15 mL 08/27/25 Lactobacillus acidophilus 0.5 mg (100 million cell) tablet 0.5 mg PO DAILY SUPPLEMENT 10/07/25 benzonatate 100 mg capsule 200 mg PO TID PRN cough 10/07/25 chlorhexidine gluconate 4 % topical liquid (Merary-Hex) 1 applic topical DAILY PRN open area leg 10/07/25 cholecalciferol (vitamin D3) 1,250 mcg (50,000 unit) capsule 1,250 mcg PO QWEEK SUPPLEMENT 10/07/25 insulin glargine U-300 conc 300 unit/mL (3 mL) subcutaneous pen (Toujeo Max U- 300 SoloStar) 75 unit subcut BID BLOOD SUGAR 10/07/25 ipratropium bromide 42 mcg (0.06 %) nasal spray 2 spray intranasal 4X/DAY PRN allergy symptoms 10/07/25 lactulose 10 gram/15 mL oral solution (Enulose) 40 g PO BID constipation 10/07/25 lidocaine 4 % topical cream 1 applic topical DAILY PRN pain 10/07/25 loperamide 2 mg capsule 2 mg PO 4X/DAY PRN loose stool 10/07/25 naratriptan 2.5 mg tablet 2.5 mg PO PRN migraine 10/07/25 paliperidone palm (3 month) 819 mg/2.63 mL intramuscular syringe (Invega Trinza) 819 mg IM .EVERY 3 MONTH MOOD 10/07/25 semaglutide 0.25 mg or 0.5 mg (2 mg/3 mL) subcutaneous pen injector (Ozempic) 0.25 mg subcut QWEEK BLOOD SUGAR 10/07/25 tizanidine 4 mg tablet 4 mg PO BID PRN muscle spasticity 10/07/25 trospium 20 mg tablet 20 mg PO BID BLADDER 10/07/25 valbenazine 40 mg capsule (Ingrezza) 40 mg PO QHS 10/08/25
--- NOTE | 2025-10-21 15:56 | CASEMGMT ---
Social Work Precert has been obtained. Physician updated and pt is ready for discharge today. PASRR form completed in [facility]ENS. SW met with pt and they are agreeable to discharge plan as stated above. DCA and bedside nurse notified of discharge. Disposition:[facility], skilled level of care under convalescent stay. MADAN Key
--- NOTE | 2025-10-21 16:02 | CASEMGMT ---
Discharge Planning Discharge orders, signed med list, LOC, and transport time sent via [facility] to [facility]. Physicians will transport pt by wheelchair at 6:30p. Nursing, SW, pt, and her father updated. Nat Gtz DC Planning Asst.
--- NOTE | 2025-10-21 16:12 | PCM.DC.SUM ---
Providers Date of Admission: 10/18/25 Date of Discharge: 10/21/25 Primary Care Physician: Dr. Cristal Wolf MD Consultations 10/19/25 00:30 Consult: Onc/Wound/tongue and quarter stitcher Routine Comment: Reason for Consult:: Left lower extremity wound Reason For Visit: DEBILITY Diagnosis Discharge Diagnosis (1) Physical deconditioning: Status: Acute Code(s): R53.81 - Other malaise (2) Adult failure to thrive: Status: Acute Code(s): R62.7 - Adult failure to thrive Plan #Debility and weakness with failure to thrive PT OT on board. Fall precautions. #Chronic heart failure with preserved ejection fraction: Not in exacerbation. On Lasix #Chronic respiratory failure due to COPD: On 3 L of oxygen which is her baseline. Breathing treatments bronchodilators. #Type 2 diabetes mellitus: On Lantus. Insulin sliding scale. Accu-Cheks ACHS. #History of gout: On allopurinol #Depression and anxiety: On buspirone and bupropion #History of schizophrenia: On Invega #Hypertension: On lisinopril DVT prophylaxis: Lovenox Disposition: Still awaiting placement. Medications at Discharge Home Medications bupropion HCl 300 mg 24 hr tablet, extended release 300 mg PO DAILY mental health 03/05/17 albuterol sulfate 90 mcg/actuation aerosol inhaler 2 puff inhalation Q4H PRN Sob &/Or Wheezing 05/29/18 aspirin 81 mg chewable tablet 81 mg PO DAILY@0800 heart health 07/17/20 buspirone 10 mg tablet 20 mg PO TID mood 01/25/22 cetirizine 10 mg tablet (Zyrtec) 10 mg PO DAILY allergies 01/25/22 guaifenesin 600 mg tablet, extended release 12 hr (Mucinex) 1,200 mg PO BID PRN Cough 01/25/22 primidone 250 mg tablet 750 mg PO QHS seizures 01/25/22 fluticasone 500 mcg-salmeterol 50 mcg/dose blistr powdr for inhalation 1 inh inhalation BID breathing 05/02/22 omeprazole 40 mg capsule,delayed release 40 mg PO DAILY gerd 05/02/22 ergocalciferol (vitamin D2) 1,250 mcg (50,000 unit) capsule (Vitamin D2) 50,000 unit PO QMONTH bone health 08/10/22 pregabalin 150 mg capsule 150 mg PO TID pain 08/10/22 ondansetron 4 mg disintegrating tablet 4 mg PO Q8H PRN Nausea 10/03/24 trazodone 150 mg tablet 150 mg PO QHS sleep 10/03/24 albuterol sulfate 2.5 mg/3 mL (0.083 %) solution for nebulization 2.5 mg inhalation Q6H PRN shortness of breath or wheezing 02/25/25 escitalopram oxalate 20 mg tablet 20 mg PO DAILY MENTAL HEALTH 03/01/25 acetaminophen 500 mg tablet 1,000 mg PO TID PAIN 04/17/25 lidocaine 4 % topical patch (Aspercreme (lidocaine)) 1 patch topical QDAY 04/17/25 lisinopril 10 mg tablet 10 mg PO DAILY blood pressure 04/17/25 nadolol 80 mg tablet 40 mg PO BID high blood pressure 04/17/25 allopurinol 100 mg tablet 100 mg PO DAILY GOUT 04/21/25 OXYGEN - Supplemental ([facility] INFORMATIONAL USE ONLY) hypoxia 08/25/25 dicyclomine 20 mg tablet 20 mg PO TID IBS 08/25/25 hydrocodone 7.5 mg-acetaminophen 325 mg tablet 1 tab PO Q6H PRN pain 08/25/25 hydroxyzine pamoate 25 mg capsule 25 mg PO BID PRN itching/anxiety 08/25/25 lorazepam 1 mg tablet 1 mg PO BID ANXIETY 08/25/25 miconazole nitrate 2 % topical cream 1 applic topical BID 08/25/25 montelukast 10 mg tablet 10 mg PO QHS ALLERGIES 08/25/25 oxybutynin chloride 15 mg tablet,extended release 24 hr 15 mg PO DAILY BLADDER 08/25/25 benztropine 0.5 mg tablet 0.5 mg PO BID MUSCLE SPASMS 30 days #60 tabs 08/27/25 insulin lispro 100 unit/mL subcutaneous pen 20 unit (0.2 mL) subcut ACHS DM 30 days #15 mL 08/27/25 Lactobacillus acidophilus 0.5 mg (100 million cell) tablet 0.5 mg PO DAILY SUPPLEMENT 10/07/25 benzonatate 100 mg capsule 200 mg PO TID PRN cough 10/07/25 chlorhexidine gluconate 4 % topical liquid (Merary-Hex) 1 applic topical DAILY PRN open area leg 10/07/25 cholecalciferol (vitamin D3) 1,250 mcg (50,000 unit) capsule 1,250 mcg PO QWEEK SUPPLEMENT 10/07/25 insulin glargine U-300 conc 300 unit/mL (3 mL) subcutaneous pen (Toujeo Max U-300 SoloStar) 75 unit subcut BID BLOOD SUGAR 10/07/25 ipratropium bromide 42 mcg (0.06 %) nasal spray 2 spray intranasal 4X/DAY PRN allergy symptoms 10/07/25 lactulose 10 gram/15 mL oral solution (Enulose) 40 g PO BID constipation 10/07/25 lidocaine 4 % topical cream 1 applic topical DAILY PRN pain 10/07/25 loperamide 2 mg capsule 2 mg PO 4X/DAY PRN loose stool 10/07/25 naratriptan 2.5 mg tablet 2.5 mg PO PRN migraine 10/07/25 paliperidone palm (3 month) 819 mg/2.63 mL intramuscular syringe (Invega Trinza) 819 mg IM .EVERY 3 MONTH MOOD 10/07/25 semaglutide 0.25 mg or 0.5 mg (2 mg/3 mL) subcutaneous pen injector (Ozempic) 0.25 mg subcut QWEEK BLOOD SUGAR 10/07/25 tizanidine 4 mg tablet 4 mg PO BID PRN muscle spasticity 10/07/25 trospium 20 mg tablet 20 mg PO BID BLADDER 10/07/25 valbenazine 40 mg capsule (Ingrezza) 40 mg PO QHS 10/08/25 Hospital Course Operations None Procedures None Summary of Care Provided Minutes Spent on Discharge: 45 Hospital Course: Patient is a 60-year-old female with a past medical history as outlined was admitted through the ED on 10/18/2025 with complaint of debility and weakness decreased ability to ambulate even for short distances. She had recently been admitted in September 2025 for similar complaints and discharged home with home health as her preference even though was recommended that she needed rehab. She was admitted to be managed for debility and weakness and failure to thrive. PT OT reviewed patient and recommended that she be placed in a halfway facility. Patient was discharged halfway facility on 10/21/2025. She is follow-up with her primary care doctor within 1 to 2 weeks. Patient was seen and examined prior to discharge. She had no active complaints and had an uneventful night. Review of systems otherwise negative. Labs and vitals reviewed. Home medication reviewed and reconciled. Physical Exam Const alert, oriented x3 and no apparent distress Constitutional Narrative: class III obesity General Appearance: cooperative and comfortable HEENT normocephalic, head/scalp atraumatic, hearing grossly normal bilaterally, moist oral mucous membranes and oropharynx normal Mouth: oral and palatal mucosa normal Eyes EOMs intact bilaterally Neck supple and no JVD Lymph Lymphatic: no lymphedema noted Resp Resp Narrative: mildly diminished breath sounds bibasally, no wheezes or crackles. On 3L of oxygen by nasal canula Cardio regular rate, regular rhythm, S1 normal heart sound, S2 normal heart sound and no murmurs GI normal to inspection, nondistended, normoactive bowel sounds, soft to palpation and non-tender GI Narrative: obese abdomen Extremity normal to inspection, full ROM and no calf tenderness Skin General Skin Exam: no breakdown Neuro oriented x3, moves all extremities, no focal motor deficits and no sensory deficits noted Motor Exam: general weakness Psych thought process normal, cooperative and affect normal Appearance: appropriate Weight / BMI Weight Weight: 307 lb 12.245 oz Body Mass Index (BMI) 51.2 ABG / Lab / Microbiology Data 10/21/25 05:55 10/21/25 05:55 Laboratory: Laboratory Results - last 24 hr 10/20/25 17:01: POC Glucose 182 H 10/20/25 21:18: POC Glucose 202 H 10/21/25 05:55: WBC 5.1, RBC 3.04 L, Hgb 9.1 L, Hct 28.4 L, MCV 93.4, MCH 29.9, MCHC 32.0 D, RDW Std Deviation 46.2 H, RDW Coeff of Jocy 13.7, Plt Count 137 L, MPV 10.1, Immature Gran % (Auto) 0.800, Neut % (Auto) 75.6 H, Lymph % (Auto) 13.5 L, Wright % (Auto) 10.1 H, Eos % (Auto) 0.0, Baso % (Auto) 0.0, Absolute Neuts (auto) 3.9, Absolute Lymphs (auto) 0.69 L, Nucleated RBC % 0, Sodium 140, Potassium 4.8, Chloride 98, Carbon Dioxide 31.5, Anion Gap 10, BUN 16, Creatinine 0.62 L, Estim Creat Clear Calc 133.73, Est GFR (MDRD) Non-Af 101, BUN/Creatinine Ratio 26.2 H, Glucose 118 H, Calcium 9.1 10/21/25 06:47: POC Glucose 123 H 10/21/25 09:34: POC Glucose 186 H 10/21/25 11:11: POC Glucose 224 H D/C Instructions Discharge Activity: Return to Normal Activity Weight Bearing Status: Weight bearing as tolerated Call your doctor if you observe: Fever of 101 or Higher, Shortness of breath, Dizziness, Swelling in the ankles and Chest pain DC O2, CPAP, BIPAP Needs Home O2 Discharge instructions: No DC home with Oxygen: No Meaningful Use Info Meaningful Use Meaningful Use Diagnoses (Choose all that apply): None applicable Discharge Plan Admission Admit Date/Time: 10/18/25 21:39 Primary Reason for Your Visit: failure to thrive, debility Attending Provider: Adeline Guerrero Primary Care Provider: Cristal Wolf Consulting Providers: Ki Marti; Salinas Heard Instructions Patient Instructions: ED FALL-from [facility] Discharge Orders/Prescriptions Prescriptions: Continued omeprazole 40 mg capsule,delayed release(DR/EC) 40 mg PO DAILY pregabalin 150 mg capsule 150 mg PO TID ergocalciferol (vitamin D2) [Vitamin D2] 1,250 mcg (50,000 unit) capsule 50,000 unit PO QMONTH acetaminophen 500 mg tablet 1,000 mg PO TID lidocaine [Aspercreme (lidocaine)] 4 % adhesive patch,medicated 1 patch topical QDAY Rx Instructions: right hip bupropion HCl 300 MG tablet extended release 24 hr 300 mg PO DAILY Patient Comments: DEPRESSION albuterol sulfate 1 INHALER inhaler 2 puff INHALATION Q4H PRN (Reason: Sob &/Or Wheezing) aspirin 81 MG tablet,chewable 81 mg PO DAILY@0800 0RF cetirizine [Zyrtec] 10 mg Tablet 10 mg PO DAILY primidone 250 mg Tablet 750 mg PO QHS buspirone 10 mg Tablet 20 mg PO TID guaifenesin [Mucinex] 600 mg Tablet Extended Release 12hr 1,200 mg PO BID PRN (Reason: Cough) fluticasone propion-salmeterol 500-50 mcg/dose blister with device 1 inh INHALATION BID ondansetron 4 MG tablet 4 mg PO Q8H PRN (Reason: Nausea) trazodone 150 mg tablet 150 mg PO QHS Patient Comments: pt states she takes 1/2tab lisinopril 10 mg tablet 10 mg PO DAILY Rx Instructions: do not take if blood pressure < 100/60 escitalopram oxalate 20 mg tablet 20 mg PO DAILY cholecalciferol (vitamin D3) 1,250 mcg (50,000 unit) capsule 1,250 mcg PO QWEEK Patient Comments: every monday Invega Trinza 819 mg/2.63 mL syringe 819 mg IM .EVERY 3 MONTH Patient Comments: LAST SHOT IN AUGUST. TAKES EVERY 3 MONTHS. NEXT SHOT IS DUE IN NOVEMBER Lactobacillus acidophilus 0.5 mg (100 million cell) tablet 0.5 mg PO DAILY insulin glargine U-300 conc [Toujeo Max U-300 SoloStar] 300 unit/mL (3 mL) insulin pen 75 unit SUBCUT BID Patient Comments: [NO ORIGINAL SIG] benzonatate 100 mg capsule 200 mg PO TID PRN (Reason: cough) chlorhexidine gluconate [Merary-Hex] 4 % liquid 1 applic TOPICAL DAILY PRN (Reason: open area leg) Patient Comments: [NO ORIGINAL SIG] lactulose [Enulose] 10 gram/15 mL solution 40 g PO BID lidocaine 4 % cream 1 applic topical DAILY PRN (Reason: pain) loperamide 2 mg capsule 2 mg PO 4X/DAY PRN (Reason: loose stool) Rx Instructions: can take up to 4 times a day if needed ipratropium bromide 42 mcg (0.06 %) spray,non-aerosol 2 spray intranasal 4X/DAY PRN (Reason: allergy symptoms) Rx Instructions: administer into each nostril naratriptan 2.5 mg tablet 2.5 mg PO PRN tizanidine 4 mg tablet 4 mg PO BID PRN (Reason: muscle spasticity) trospium 20 mg tablet 20 mg PO BID Ozempic 0.25 mg or 0.5 mg (2 mg/3 mL) pen injector 0.25 mg subcut QWEEK Patient Comments: PT TAKES ON TUESDAYS Rx Instructions: for 4 weeks Ingrezza 40 mg capsule 40 mg PO QHS Rx Instructions: pt has her own medication here albuterol sulfate 2.5 mg /3 mL (0.083 %) solution for nebulization 2.5 mg inhalation Q6H PRN (Reason: shortness of breath or wheezing) allopurinol 100 mg tablet 100 mg PO DAILY oxybutynin chloride 15 mg tablet extended release 24hr 15 mg PO DAILY miconazole nitrate 2 % cream 1 applic topical BID dicyclomine 20 mg tablet 20 mg PO TID montelukast 10 mg tablet 10 mg PO QHS lorazepam 1 mg tablet 1 mg PO BID hydroxyzine pamoate 25 mg capsule 25 mg PO BID PRN (Reason: itching/anxiety) Rx Instructions: take 2-3 capsules by mouth twice daily as needed for itching/rash or anxiety hydrocodone-acetaminophen 7.5-325 mg tablet 1 tab PO Q6H PRN (Reason: pain) Patient Comments: PT STATES SHE TAKES ONCE DAILY Rx Instructions: up to 7 days OXYGEN - Supplemental ([facility] INFORMATIONAL USE ONLY) Patient Comments: home oxygen through [facility]. Verified 3L @ rest and 5L with exertion via NC-per CM pervious admissions note benztropine 0.5 mg Tablet 0.5 mg PO BID 30 Days Qty: 60 0RF insulin lispro 100 unit/mL insulin pen 20 unit subcut ACHS 30 Days Qty: 15 0RF Patient Comments: PT STATES SHE ONLY TAKES WITH MEALS AND TAKES 22 UNITS FOR THE SUPPER DOSE Rx Instructions: Max daily insulin lispro 60 units nadolol 80 mg tablet 40 mg PO BID Referrals / Follow Up: Cristal Wolf MD [Primary Care Provider, Internal Medicine] - Within 1 Week Disposition Disposition (needs filled in before D/C Order can be placed): [facility] Charges/Coding Visit Charges Inpatient E&M: 09663 Disch Hosp >30min
--- NOTE | 2025-10-22 08:51 | CASEMGMT ---
Social Work- faxed d/c to [facility]. MADAN Key
== END 2025-10-21 19:51 | disposition skilled nursing facility (03) | DRG 421 ==
LOC: ED 20:45 → MS3 21:50
PROVIDERS: Family Medicine; Admitting Provider Internal Medicine; Emergency Provider Emergency Medicine; PCP Internal Medicine; Visit Provider Student in an Organized Health Care Education/Training Program
DX: R62.7 Adult failure to thrive (principal); F25.9 Schizoaffective disorder, unspecified; I50.32 Chronic diastolic (congestive) heart failure; Z99.81 Dependence on supplemental oxygen; E66.01 Morbid (severe) obesity due to excess calories; E11.42 Type 2 diabetes mellitus with diabetic polyneuropathy; J44.9 Chronic obstructive pulmonary disease, unspecified; I11.0 Hypertensive heart disease with heart failure; F32.A Depression, unspecified; J96.11 Chronic respiratory failure with hypoxia; E78.5 Hyperlipidemia, unspecified; K21.9 Gastro-esophageal reflux disease without esophagitis; E11.51 Type 2 diabetes mellitus with diabetic peripheral angiopathy without gangrene; Z68.43 Body mass index [BMI] 50.0-59.9, adult; R25.1 Tremor, unspecified; M10.9 Gout, unspecified; Z79.4 Long term (current) use of insulin; R53.1 Weakness; R53.81 Other malaise; F43.10 Post-traumatic stress disorder, unspecified; Z90.710 Acquired absence of both cervix and uterus; Z79.82 Long term (current) use of aspirin; R26.89 Other abnormalities of gait and mobility; Z79.899 Other long term (current) drug therapy; G89.29 Other chronic pain; N32.81 Overactive bladder
CPT/HCPCS: 36415; 80048; 80053; 82962; 85025; 93005; 94640; 97162; 97165; 97530; 97535; 97802; 99285; A4216

== ENCOUNTER 2025-11-09 22:39 | Inpatient (IN) | payer MEDICAID, SELFPAY ==
[2025-11-09 22:43] VITALS: BP 122/99; PULSE 80; RESP 22; TEMP 36.7; O2SAT 96; BMI 50.8
--- NOTE | 2025-11-09 23:06 | EKG12_ITS ---
Test Reason : WEAKNESS Blood Pressure : */* mmHG Vent. Rate : 73 BPM Atrial Rate : 73 BPM P-R Int : 190 ms QRS Dur : 100 ms QT Int : 386 ms P-R-T Axes : 48 -4 -4 degrees QTcB Int : 425 ms Normal sinus rhythm Incomplete right bundle branch block Nonspecific T wave abnormality Abnormal ECG Confirmed by Thomas Fry (Jadiel), material expeditor KM ALANIS ([id number]) on 11/11/2025 11:26:15 AM Also confirmed by Thomas Fry ([id number]), material expeditor KM ALANIS ([id number]) on 11/12/2025 10:52:31 AM Referred By: JORGE Confirmed By: Thomas Fry
--- NOTE | 2025-11-09 23:16 | EX.ED.DYSGE1 ---
HPI History of Present Illness Chief Complaint: Weakness Informant: patient and EMS Narrative Narrative: Patient is a 60-year-old female with a history of diabetes mellitus presenting with weakness and shakiness. - Symptoms began 2-3 days ago. - Reports feeling weak and shaky, with difficulty standing. - Denies emesis, diarrhea, cough, dyspnea, pain, syncope, or falls. No dysuria or changes in urination. No changes in vision. - Recent blood glucose levels have been in the 100s; administered insulin today when levels were in the 200s. - Recently discharged from [facility] 4 days ago after a 3-week stay for similar symptoms; was receiving rehabilitation and felt better before discharge. - Has chronic numbness in arms and feet due to neuropathy, no changes. [facility] Medical History Physical deconditioning Morbid obesity Ambulatory dysfunction Adult failure to thrive Chronic hypoxic respiratory failure (HFpEF) heart failure with preserved ejection fraction Diabetes mellitus type 2, uncontrolled, with complications Type 2 diabetes mellitus with other skin ulcer Congestive heart failure (CHF) Anemia Osteoarthritis penitentiary current use of insulin Old myocardial infarction Adult failure to thrive Anemia COPD (chronic obstructive pulmonary disease) Chronic hypoxic respiratory failure, on home oxygen therapy COPD (chronic obstructive pulmonary disease) Bipolar disorder Non-smoker CPAP (continuous positive airway pressure) dependence On home oxygen therapy Myocardial infarct Hypertension History of ESBL E. coli infection Schizophrenia Other specified peripheral vascular diseases Chronic painful diabetic polyneuropathy Edema of both lower extremities Venous insufficiency (chronic) (peripheral) Diabetes PTSD (post-traumatic stress disorder) Depression Schizo affective schizophrenia Hypersomnia, unspecified Diabetes Left ventricular aneurysm Essential hypertension Chest pain Back pain Asthma Knee pain Migraines Fatigue Hemorrhoids COPD (chronic obstructive pulmonary disease) Arthritis Pain syndrome, chronic Bipolar disorder Migraines Obstructive sleep apnea Stasis dermatitis of both legs Venous insufficiency of both lower extremities Super obese Open wound of left lower extremity GERD (gastroesophageal reflux disease) Benign hypertension ADHD (attention deficit hyperactivity disorder) Home Medications ?Medication ?Instructions ?Recorded ?Last Taken ?Type bupropion HCl 300 mg 24 hr tablet, 300 mg PO DAILY mental health 03/05/17 10/06/25 History extended release albuterol sulfate 90 mcg/actuation 2 puff inhalation Q4H PRN Sob &/Or 05/29/18 10/06/25 History aerosol inhaler Wheezing aspirin 81 mg chewable tablet 81 mg PO DAILY@0800 heart health 07/17/20 10/06/25 Rx buspirone 10 mg tablet 20 mg PO TID mood 01/25/22 10/06/25 History cetirizine 10 mg tablet (Zyrtec) 10 mg PO DAILY allergies 01/25/22 10/06/25 History guaifenesin 600 mg tablet, 1,200 mg PO BID PRN Cough 01/25/22 08/24/25 History extended release 12 hr (Mucinex) primidone 250 mg tablet 750 mg PO QHS seizures 01/25/22 10/06/25 History fluticasone 500 mcg-salmeterol 50 1 inh inhalation BID breathing 05/02/22 10/06/25 History mcg/dose blistr powdr for inhalation omeprazole 40 mg capsule,delayed 40 mg PO DAILY gerd 05/02/22 10/06/25 History release ergocalciferol (vitamin D2) 1,250 50,000 unit PO QMONTH bone health 08/10/22 04/21/25 History mcg (50,000 unit) capsule (Vitamin D2) pregabalin 150 mg capsule 150 mg PO TID pain 08/10/22 10/06/25 History ondansetron 4 mg disintegrating 4 mg PO Q8H PRN Nausea 10/03/24 08/23/25 History tablet trazodone 150 mg tablet 150 mg PO QHS sleep 10/03/24 10/06/25 History albuterol sulfate 2.5 mg/3 mL 2.5 mg inhalation Q6H PRN 02/25/25 10/06/25 History (0.083 %) solution for nebulization shortness of breath or wheezing escitalopram oxalate 20 mg tablet 20 mg PO DAILY MENTAL HEALTH 03/01/25 10/06/25 History acetaminophen 500 mg tablet 1,000 mg PO TID PAIN 04/17/25 10/06/25 History lisinopril 10 mg tablet 10 mg PO DAILY blood pressure 04/17/25 10/06/25 History nadolol 80 mg tablet 40 mg PO BID high blood pressure 04/17/25 10/06/25 History allopurinol 100 mg tablet 100 mg PO DAILY GOUT 04/21/25 10/06/25 History OXYGEN - Supplemental ([facility] hypoxia 08/25/25 Unknown History INFORMATIONAL USE ONLY) dicyclomine 20 mg tablet 20 mg PO TID IBS 08/25/25 10/06/25 History hydrocodone 7.5 mg-acetaminophen 1 tab PO Q6H PRN pain 08/25/25 10/06/25 History 325 mg tablet hydroxyzine pamoate 25 mg capsule 25 mg PO BID PRN itching/anxiety 08/25/25 10/06/25 History lorazepam 1 mg tablet 1 mg PO BID ANXIETY 08/25/25 10/06/25 History montelukast 10 mg tablet 10 mg PO QHS ALLERGIES 08/25/25 10/06/25 History oxybutynin chloride 15 mg 15 mg PO DAILY BLADDER 08/25/25 10/06/25 History tablet,extended release 24 hr benztropine 0.5 mg tablet 0.5 mg PO BID MUSCLE SPASMS 30 08/27/25 10/06/25 Rx days #60 tabs insulin lispro 100 unit/mL 20 unit (0.2 mL) subcut ACHS DM 30 08/27/25 10/06/25 Rx subcutaneous pen days #15 mL Lactobacillus acidophilus 0.5 mg 0.5 mg PO DAILY SUPPLEMENT 10/07/25 10/06/25 History (100 million cell) tablet cholecalciferol (vitamin D3) 1,250 1,250 mcg PO QWEEK SUPPLEMENT 10/07/25 10/01/25 History mcg (50,000 unit) capsule insulin glargine U-300 conc 300 75 unit subcut BID BLOOD SUGAR 10/07/25 10/06/25 History unit/mL (3 mL) subcutaneous pen (Toujeo Max U-300 SoloStar) ipratropium bromide 42 mcg (0.06 2 spray intranasal 4X/DAY PRN 10/07/25 Unknown History %) nasal spray allergy symptoms lactulose 10 gram/15 mL oral 40 g PO BID PRN constipation 10/07/25 10/06/25 History solution (Enulose) lidocaine 4 % topical cream 1 applic topical DAILY PRN pain 10/07/25 Unknown History loperamide 2 mg capsule 2 mg PO 4X/DAY PRN loose stool 10/07/25 Unknown History naratriptan 2.5 mg tablet 2.5 mg PO PRN migraine 10/07/25 Unknown History paliperidone palm (3 month) 819 819 mg IM .EVERY 3 MONTH MOOD 10/07/25 Unknown History mg/2.63 mL intramuscular syringe (Invega Trinza) semaglutide 0.25 mg or 0.5 mg (2 0.25 mg subcut QWEEK BLOOD SUGAR 10/07/25 Unknown History mg/3 mL) subcutaneous pen injector (Ozempic) tizanidine 4 mg tablet 4 mg PO BID PRN muscle spasticity 10/07/25 Unknown History trospium 20 mg tablet 20 mg PO BID BLADDER 10/07/25 10/06/25 History valbenazine 40 mg capsule 40 mg PO QHS 10/08/25 Unknown History (Ingrezza) Allergy/AdvReac Type Severity Reaction Status Date / Time meloxicam Allergy Severe Anaphylaxis Verified 11/09/25 22:45 vancomycin Allergy Severe BURNING Verified 11/09/25 22:45 RED RASH ON LEGGS amlodipine (From Norvasc) Allergy Swelling Verified 11/09/25 22:45 cefazolin sodium (From Ancef) Allergy Hives Verified 11/09/25 22:45 fexofenadine (From Nia) Allergy Shortness Verified 11/09/25 22:45 of breath nitrofurantoin (From Allergy Hives Verified 11/09/25 22:45 Macrobid) Penicillins Allergy Hives Verified 11/09/25 22:45 sumatriptan (From Imitrex) Allergy Shortness Verified 11/09/25 22:45 of breath adhesive AdvReac BURNING Verified 11/09/25 22:45 amitriptyline (From Elavil) AdvReac Other Verified 11/09/25 22:45 clindamycin AdvReac Diarrhea Verified 11/09/25 22:45 ziprasidone (From Geodon) AdvReac NEEDS Verified 11/09/25 22:45 FOLLOW-UP Family History Father CVA (cerebral vascular accident) Heart disease Mother Heart disease Surgical History History of elbow surgery (~06/2020) History of arthroscopic knee surgery History of left heart catheterization (07/16/20) Kidney stone H/O hernia repair Hx of hysterectomy Hx of section Social History household members: family housing: house Smoking Status: Never smoker alcohol intake: never substance use type: does not use caffeine: Yes (occasionally) ROS ROS ED Constitutional Constitutional ED: Reports weakness; Denies chills or fever(s) Eyes Eyes: Denies change in vision or diplopia ENT ENT ED: Denies rhinorrhea or sore throat Cardiovascular Cardiovascular: Denies chest pain or palpitations Respiratory/Chest Respiratory/Chest: Denies cough or dyspnea Gastrointestinal Gastrointestinal: Denies abdominal pain, diarrhea, nausea or vomiting Genitourinary Genitourinary ED: Denies dysuria or hematuria Musculoskeletal Musculoskeletal: Denies back pain or neck pain Integumentary Denies abscess or rash Neurologic Neurologic: Denies headache(s), paresthesias or weakness Psychiatric Psychiatric: Denies suicidal thoughts EXAM Physical Exam Const Vital Signs: 11/09/25 22:43 11/09/25 23:07 11/09/25 23:45 Temperature 98.1 F 97.9 F Temperature Source Oral Oral Pulse Rate 80 73 Respiratory Rate 22 H 19 H Respiratory Effort Normal Respiratory Pattern Normal Blood Pressure 122/99 H 132/73 H Blood Pressure Mean 106 92 Pulse Ox 96 100 Oxygen Delivery Method Nasal Cannula Nasal Cannula Oxygen Flow Rate (L/min) 3 3 11/09/25 23:52 11/10/25 00:28 Temperature 97.6 F L Temperature Source Pulse Rate 73 71 Respiratory Rate 19 H 16 Respiratory Effort Respiratory Pattern Blood Pressure 132/73 H 110/62 Blood Pressure Mean 92 78 Pulse Ox 100 98 Oxygen Delivery Method Nasal Cannula Oxygen Flow Rate (L/min) 3 Positive well nourished, well developed and obese General Appearance ED: well developed and NAD Nutritional Appearance: obese HEENT Reports moist mucous membranes normocephalic and atraumatic Eyes PERRL and EOMs intact bilaterally Neck full ROM and supple Resp normal respiratory effort and clear to auscultation bilaterally Cardio regular rate, regular rhythm and no murmurs GI non-tender and non-distended Auscultation: normoactive bowel sounds Palpation: soft Back/Spine no CVA tenderness General Back: other FROM Extremity normal to inspection Extremity Narrative: no infected wounds seen General Extremety ED: Yes edema; Negative for pulses abnormal or tenderness General Extremity: edema bilateral lower extremity Details: mild; Negative for pulses abnormal Neuro oriented x3, CN's II-XII intact bilaterally and no sensory deficits noted Sensorium / Orientation: awake and alert Motor Exam: general weakness Psych mental status grossly normal Skin no rashes or lesions noted and no wounds MDM MDM MDM Narrative Medical decision making narrative: Workup included a one-view chest X-ray, which, in my interpretation, shows no pneumonia. Labs are essentially unremarkable, with no leukocytosis, chronic anemia with a hemoglobin of 9.3 (which is stable), normal kidney function, and a glucose of 178. The EKG shows sinus rhythm with an incomplete right bundle branch block and some nonspecific anterior septal ST-T wave changes that are stable compared to her previous EKG. Her urine appears to be infected, with positive nitrites, 100 leukocyte esterase, 10?25 white blood cells, no squamous epithelial cells, and 3+ bacteria. A culture was obtained, and she was treated with Bactrim, as she has allergies to many antibiotics but not that one. She states she is too weak to go home safely. She had trouble standing, which is why she arrived by EMS. Reviewed her last urine culture which was unremarkable, so I do not think we need to start with specialized antibiotics, but an acute urinary tract infection could be causing her acute generalized weakness and debility. Sent urine for culture but she is not septic's blood cultures not indicated right now. Her vital signs are normal. This was discussed with the hospitalist for admission. Lab Data Attestation: I reviewed the patient's lab results. Labs: Laboratory Results - last 24 hr 11/09/25 11/09/25 23:05 23:41 WBC 6.0 RBC 3.30 L Hgb 9.3 L Hct 30.7 L MCV 93.0 MCH 28.2 MCHC 30.3 L RDW Std Deviation 46.5 H RDW Coeff of Jocy 13.7 Plt Count 139 L MPV 9.7 Immature Gran % (Auto) 0.300 Neut % (Auto) 79.6 H Lymph % (Auto) 11.4 L Glascock % (Auto) 8.7 Eos % (Auto) 0.0 Baso % (Auto) 0.0 Absolute Neuts (auto) 4.8 Absolute Lymphs (auto) 0.68 L Nucleated RBC % 0 Sodium 139 Potassium 4.5 Chloride 96 L Carbon Dioxide 35.5 H Anion Gap 7 BUN 16 Creatinine 0.79 Estim Creat Clear Calc 104.44 Est GFR (MDRD) Non-Af 84 BUN/Creatinine Ratio 19.5 Glucose 178 H Calcium 9.2 Urine Color Yellow Urine Clarity Sl. Cloudy Urine pH 6.0 Ur Specific [place] 1.025 Urine Protein 30 H Urine Glucose (UA) Normal Urine Ketones Negative Urine Occult Blood Negative Urine Nitrite Positive H Urine Bilirubin Negative Urine Urobilinogen Normal Ur Leukocyte Esterase 100 H Urine RBC 0 SEEN Urine WBC 10-25 SEEN Ur Squamous Epith Cells 0 SEEN Urine Bacteria 3+ Urine Mucus 0 SEEN Radiography Diagnostic Testing: Clinical Impression(s) from Imaging Studies Chest X-Ray 11/09/25 23:25 IMPRESSION: Pulmonary findings above. Reading Location: [facility] Rhythm Strip Rhythm Strip: Sinus Rhythm Rate: 75 Ectopy: None EKG Initial EKG: Attestation: I personally reviewed and interpreted this EKG as follows: Interpretation: Sinus Rhythm, No Acute Injury Pattern and Non-Specific ST Changes (ant-sept) Prior EKG tracings: available for review Prior: Unchanged Management Discussion w/another healthcare provider: Hospitalist Discharge Plan Dx/Rx/DC Orders Clinical Impression: Acute UTI, Generalized weakness, Debility, Anemia Disposition Disposition: Acute Care Hospital [facility]
[2025-11-09 23:19] LABS: Hematocrit 30.7 % (37-47); Hemoglobin 9.3 g/dL (12.0-15.0); Immature Granulocytes Count 0.020 X10^3/uL (0.0-0.0); Mean Corp Hgb Conc 30.3 g/dL (32-36); Mean Corpuscular Volume 93.0 fL (81-99); Mean Platelet Vol. 9.7 fl (6.2-12.0); NRBC Flagged by Analyzer 0 % (0-5); Platelet Count 139 K/mm3 (150-450); RBC Distribution Width CV 13.7 % (11.6-14.6); RBC Distribution Width SD 46.5 fl (35.1-43.9); Red Blood Count 3.30 M/mm3 (4.2-5.4); White Blood Count 6.0 K/mm3 (4.4-11.0)
--- NOTE | 2025-11-09 23:25 | RAD_ITS ---
PROCEDURE: CHEST 1 VIEW (PORTABLE) 11/09/2025 REASON FOR EXAM: WEAKNESS TECHNIQUE: Frontal view of the chest. COMPARISON: 10/07/2025. FINDINGS: The heart borders are partially obscured due to low lung volumes. Low lung volume limits assessment. Hilar prominence which may be due to low lung volumes vascular congestion. No acute osseous abnormalities. RAD/Chest 1 View (Portable) IMPRESSION: Pulmonary findings above. Reading Location: [facility]
[2025-11-09 23:37] LABS: Anion Gap 7 (5-15); BUN 16 mg/dL (4-19); BUN/Creat Ratio 19.5 RATIO (10-20); Calcium,Total 9.2 mg/dL (7.6-11.0); Carbon Dioxide 35.5 mmol/L (21.0-32.0); Chloride 96 mmol/L (98-108); Estimated Creatinine Clearance 104.44 ml/min (50-250); Glucose 178 mg/dL (70-99); Potassium 4.5 mmol/L (3.3-5.1)
[2025-11-09 23:45] VITALS: BP 132/73; PULSE 73; RESP 19; TEMP 36.6; O2SAT 100
[2025-11-09] MEDS: 0.9% Normal Saline (1000mL) 1,000 ML 150 ML IV (23:50)
[2025-11-09 23:52] VITALS: BP 132/73; PULSE 73; RESP 19; O2SAT 100
[2025-11-09 23:56] LABS: Mucous, Urine 0 SEEN /hpf (<or=2+); Red Blood Cells-Urine 0 SEEN /hpf (0-5); Squamous Epithelial Cells - UA 0 SEEN /hpf (5-10)
[2025-11-09 23:58] LABS: Color, Urine Yellow (Yellow); Glucose, Dipstick Normal (Normal); Ketone-Dipstick Negative (Negative); Leukocyte Esterase-Dipstick 100 /ul (Negative); Nitrite-Dipstick Positive (Negative); Occult Blood-Urine Negative /ul (Negative); Protein-Dipstick 30 mg/dl (Negative); Specific Gravity, Urine 1.025 (1.002-1.030); Urine Bilirubin Dipstick Negative (Negative)
[2025-11-10] VITALS (11 sets, daily range): BP systolic 109–206; BP diastolic 57–83; PULSE 67–80; RESP 15–20; TEMP 36.4–37.2; O2SAT 94–100; BMI 51.9
[2025-11-10] MEDS: Smz/Tmp Ds Tablet 1 TABLET PO (00:21)
--- NOTE | 2025-11-10 01:01 | HP.PCM.HOS_ITS ---
HPI - General General Date of Admission: 11/10/25 HPI Narrative GARTH MACK, is a 60 F who presents to the hospital with weakness and debility starting on Monday. She was [facility] for weakness and debility on her previous admission. Lab work is essentially unremarkable in the emergency room, no leukocytosis or fever however her UA is suggestive of a urinary tract infection and she was given a dose of Bactrim in the emergency room for this. She denies any dysuria but does have pelvic pain to palpation which is new for her. [facility] Medical History Physical deconditioning Morbid obesity Ambulatory dysfunction Adult failure to thrive Chronic hypoxic respiratory failure (HFpEF) heart failure with preserved ejection fraction Diabetes mellitus type 2, uncontrolled, with complications Type 2 diabetes mellitus with other skin ulcer Congestive heart failure (CHF) Anemia Osteoarthritis [facility] current use of insulin Old myocardial infarction Adult failure to thrive Anemia COPD (chronic obstructive pulmonary disease) Chronic hypoxic respiratory failure, on home oxygen therapy COPD (chronic obstructive pulmonary disease) Bipolar disorder Non-smoker CPAP (continuous positive airway pressure) dependence On home oxygen therapy Myocardial infarct Hypertension History of ESBL E. coli infection Schizophrenia Other specified peripheral vascular diseases Chronic painful diabetic polyneuropathy Edema of both lower extremities Venous insufficiency (chronic) (peripheral) Diabetes PTSD (post-traumatic stress disorder) Depression Schizo affective schizophrenia Hypersomnia, unspecified Diabetes Left ventricular aneurysm Essential hypertension Chest pain Back pain Asthma Knee pain Migraines Fatigue Hemorrhoids COPD (chronic obstructive pulmonary disease) Arthritis Pain syndrome, chronic Bipolar disorder Migraines Obstructive sleep apnea Stasis dermatitis of both legs Venous insufficiency of both lower extremities Super obese Open wound of left lower extremity GERD (gastroesophageal reflux disease) Benign hypertension ADHD (attention deficit hyperactivity disorder) Home Medications ?Medication ?Instructions ?Recorded ?Last Taken ?Type bupropion HCl 300 mg 24 hr tablet, 300 mg PO DAILY [employer] [facility] [employer] 03/05/17 10/06/25 History extended release albuterol sulfate 90 mcg/actuation 2 puff inhalation Q 4H PRN Sob &/Or 05/29/18 10/06/25 History aerosol inhaler Wheezing aspirin 81 mg chewable tablet 81 mg PO DAILY@0800 [facility] 07/17/20 10/06/25 Rx buspirone 10 mg tablet 20 mg PO TID mood 01/25/22 1 12/06/24 History cetirizine 10 mg tablet (Zyrtec) 10 mg PO DAILY allerg ies 01/25/22 10/06/25 History guaifenesin 600 mg tablet, 1,200 mg PO BID PRN Cough 0 01/25/22 08/24/25 History extended release 12 hr (Mucinex) primidone 250 mg tablet 750 mg PO QHS seizures 01/2510/06/25 History fluticasone 500 mcg-salmeterol 50 1 inh inhalation BID breathing 05/02/22 10/06/25 History mcg/dose blistr powdr for inhalation omeprazole 40 mg capsule,delayed 40 mg PO DAILY gerd 0 05/02/22 10/06/25 History release ergocalciferol (vitamin D2) 1,250 50,000 unit PO Q[facility]ONT [facility] 08/10/22 04/21/25 History mcg (50,000 unit) capsule (Vitamin D2) pregabalin 150 mg capsule 150 mg PO TID pain 08/10/22 10/06/25 History ondansetron 4 mg disintegrating 4 mg PO Q8H PRN Nausea 10/03/24 08/23/25 History tablet trazodone 150 mg tablet 150 mg PO QHS sleep 10/03/24 10/06/25 History albuterol sulfate 2.5 mg/3 mL 2.5 mg inhalation Q6H [place] N 02/25/25 10/06/25 History (0.083 %) solution for nebulization shortness of breat h or wheezing escitalopram oxalate 20 mg tablet 20 mg PO DAILY [facility] 03/01/25 10/06/25 History acetaminophen 500 mg tablet 1,000 mg PO TID PAIN 04/1710/06/25 History lisinopril 10 mg tablet 10 mg PO DAILY blood pressur e 04/17/25 10/06/25 History nadolol 80 mg tablet 40 mg PO BID high blood pres sure 04/17/25 10/06/25 History allopurinol 100 mg tablet 100 mg PO DAILY GOUT 5 10/06/25 History OXYGEN - Supplemental ([facility] hypoxia 08/25/25 Unknown Hi story INFORMATIONAL USE ONLY) dicyclomine 20 mg tablet 20 mg PO TID IBS 08/25/25 History hydrocodone 7.5 mg-acetaminophen 1 tab PO Q6H PRN pain 08/25/25 10/06/25 History 325 mg tablet hydroxyzine pamoate 25 mg capsule 25 mg PO BID PRN itc yousif/anxiety 08/25/25 10/06/25 History lorazepam 1 mg tablet 1 mg PO BID ANXIETY 08/25/25 10/06/25 History montelukast 10 mg tablet 10 mg PO QHS ALLERGIES 08/2510/06/25 History oxybutynin chloride 15 mg 15 mg PO DAILY BLADDER 08/2510/06/25 History tablet,extended release 24 hr benztropine 0.5 mg tablet 0.5 mg PO BID MUSCLE SPASMS 30 08/27/25 10/06/25 Rx days #60 tabs insulin lispro 100 unit/mL 20 unit (0.2 mL) subcut ACH S DM 30 08/27/25 10/06/25 Rx subcutaneous pen days #15 mL Lactobacillus acidophilus 0.5 mg 0.5 mg PO DAILY SUPPL EMENT 10/07/25 10/06/25 History (100 million cell) tablet cholecalciferol (vitamin D3) 1,250 1,250 mcg PO QWEEK SUPPLEMENT 10/07/25 10/01/25 History mcg (50,000 unit) capsule insulin glargine U-300 conc 300 75 unit subcut BID BLO OD SUGAR 10/07/25 10/06/25 History unit/mL (3 mL) subcutaneous pen (Toujeo Max U-300 SoloStar) ipratropium bromide 42 mcg (0.06 2 spray intranasal 4X /DAY PRN 10/07/25 Unknown History %) nasal spray allergy symptoms lactulose 10 gram/15 mL oral 40 g PO BID PRN constipat ion 10/07/25 10/06/25 History solution (Enulose) lidocaine 4 % topical cream 1 applic topical DAILY PRN pain 10/07/25 Unknown History loperamide 2 mg capsule 2 mg PO 4X/DAY PRN loose sto ol 10/07/25 Unknown History naratriptan 2.5 mg tablet 2.5 mg PO PRN migraine 10/07 Unknown History paliperidone palm (3 month) 819 819 mg IM .EVERY 3 MON TH MOOD 10/07/25 Unknown History mg/2.63 mL intramuscular syringe (Invega Trinza) semaglutide 0.25 mg or 0.5 mg (2 0.25 mg subcut QWEEK BLOOD SUGAR 10/07/25 Unknown History mg/3 mL) subcutaneous pen injector (Ozempic) tizanidine 4 mg tablet 4 mg PO BID PRN muscle spast icity 10/07/25 Unknown History trospium 20 mg tablet 20 mg PO BID BLADDER 5 10/06/25 History valbenazine 40 mg capsule 40 mg PO QHS 10/08/25 Unknow n History (Ingrezza) Allergy/AdvReac Type Severity Reaction Status Date / Time meloxicam Allergy Severe Anaphylaxis Verified 11/09/25 22:45 vancomycin Allergy Severe BURNING Verified 11/09/25 22:45 RED RASH ON LEGGS amlodipine (From Norvasc) Allergy Swelling Verified 11/09/25 22:45 cefazolin sodium (From Ancef) Allergy Hives Verified 11/09/25 22:45 fexofenadine (From Nia) Allergy Shortness Verified 11/09/25 22:45 of breath nitrofurantoin (From Allergy Hives Verified 11/09/25 22:45 Macrobid) Penicillins Allergy Hives Verified 11/09/25 22:45 sumatriptan (From Imitrex) Allergy Shortness Verified 11/09/25 22:45 of breath adhesive AdvReac BURNING Verified 11/09/25 22:45 amitriptyline (From Elavil) AdvReac Other Verified 11/09/25 22:45 clindamycin AdvReac Diarrhea Verified 11/09/25 22:45 ziprasidone (From Geodon) AdvReac NEEDS Verified 11/09/25 22:45 FOLLOW-UP Family History Father CVA (cerebral vascular accident) Heart disease Mother Heart disease Surgical History History of elbow surgery (~06/2020) History of arthroscopic knee surgery History of left heart catheterization (07/16/20) Kidney stone H/O hernia repair Hx of hysterectomy Hx of section Social History household members: family housing: house Smoking Status: Never smoker alcohol intake: never substance use type: does not use caffeine: Yes (occasionally) ROS Constitutional Constitutional: Reports weakness; Denies chills, fatigue, fever(s) or malaise Eyes Eyes: Denies blurry vision ENT HEENT: Denies headache(s) or nasal discharge Cardiovascular Cardiovascular: Denies chest pain, dyspnea on exertion or syncope Respiratory/Chest Respiratory/Chest: Denies cough, shortness of breath at rest or shortness of breath with exertion Gastrointestinal Gastrointestinal: Denies constipation, diarrhea, nausea or vomiting Genitourinary Genitourinary: Reports other Details: Pelvic pain ; Denies dysuria Neurologic Neurologic: Denies focal weakness, numbness or tremor(s) Psychiatric Psychiatric: Denies anxiety or depression Patient's Goals Of Care . Unable to discuss care goals with the patient and or patient mortician supplies sales representative at this time: Yes Vital Signs Vital Signs Vital Signs: 11/09/25 22:43 11/09/25 23:07 11/09/25 23:45 Temperature 98.1 F 97.9 F Temperature Source Oral Oral Pulse Rate 80 73 Respiratory Rate 22 H 19 H Respiratory Effort Normal Respiratory Pattern Normal Blood Pressure 122/99 H 132/73 H Blood Pressure Mean 106 92 Pulse Ox 96 100 Oxygen Delivery Method Nasal Cannula Nasal Cannula Oxygen Flow Rate (L/min) 3 3 11/09/25 23:52 11/10/25 00:28 Temperature 97.6 F L Temperature Source Pulse Rate 73 71 Respiratory Rate 19 H 16 Respiratory Effort Respiratory Pattern Blood Pressure 132/73 H 110/62 Blood Pressure Mean 92 78 Pulse Ox 100 98 Oxygen Delivery Method Nasal Cannula Oxygen Flow Rate (L/min) 3 Weight Weight: 305 lb 5.443 oz Body Mass Index (BMI) 50.8 Physical Exam Narrative General: Alert, Oriented x3, Cooperative, No apparent distress HEENT: Atraumatic, PERRLA, EOMI, Normocephalic Oral: Moist Mucosa Neck: Supple, No JVD Lungs: Diminished, Normal air movement, No rhonchi, No wheeze, No rales Cardiovascular: Regular rate, Regular Rhythm, Normal S1, Normal S2, No murmurs Abdomen: Soft, Non Tender, Non-Distended, No Hepato-splenomegaly Extremities: No edema, Capillary Refill Less than 3 Seconds Skin: Left lower extremity wound dressed Musculoskeletal: No Tenderness to Palpation of Joints or Extremities Neurological: No focal neurological deficits, moves all extremities Psych/Mental Status: Flat Results Lab / Micro Data 11/09/25 23:05 11/09/25 23:05 Labs: Laboratory Results - last 24 hr 11/09/25 23:05: WBC 6.0, RBC 3.30 L, Hgb 9.3 L, Hct 30.7 L, MCV 93.0, MCH 28.2, MCHC 30.3 L, RDW Std Deviation 46.5 H, RDW Coeff of Jocy 13.7, Plt Count 139 L, MPV 9.7, Immature Gran % (Auto) 0.300, Neut % (Auto) 79.6 H, Lymph % (Auto) 11.4 L, [place] % (Auto) 8.7, Eos % (Auto) 0.0, Baso % (Auto) 0.0, Absolute Neuts (auto) 4.8, Absolute Lymphs (auto) 0.68 L, Nucleated RBC % 0, Sodium 139, Potassium 4.5, Chloride 96 L, Carbon Dioxide 35.5 H, Anion Gap 7, BUN 16, Creatinine 0.79, Estim Creat Clear Calc 104.44, Est GFR (MDRD) Non-Af 84, BUN/Creatinine Ratio 19.5, Glucose 178 H, Calcium 9.2 11/09/25 23:41: Urine Color Yellow, Urine Clarity Sl. Cloudy, Urine pH 6.0, Ur Specific Goodwell 1.025, Urine Protein 30 H, Urine Glucose (UA) Normal, Urine Ketones Negative, Urine Occult Blood Negative, Urine Nitrite Positive H, Urine Bilirubin Negative, Urine Urobilinogen Normal, Ur Leukocyte Esterase 100 H, Urine RBC 0 SEEN, Urine WBC 10-25 SEEN, Ur Squamous Epith Cells 0 SEEN, Urine Bacteria 3+, Urine Mucus 0 SEEN Rhythm Strip Rhythm Strip: Sinus Rhythm Rate: 75 Ectopy: None Imaging Radiology Impression Chest X-Ray 11/09/25 23:25 IMPRESSION: Pulmonary findings above. Reading Location: [facility] Assessment & Plan Assessment/Plan (1) Generalized weakness: (2) Acute UTI: PLAN: Plan 1. Generalized weakness and debility with inability to complete ADLs secondary to possible UTI ? PT/OT ? Will consult case management for possible placement ? Urine cultures pending ? Continue with p.o. Cipro 2. Chronic diastolic CHF/essential HTN/HLD ? Continue with her home medications ? Will monitor her blood pressures and make adjustments as necessary ? Echocardiogram in 04/22/2025 with an EF of 65% stage I diastolic dysfunction with an RVSP of 57 mmHg 3. COPD with chronic hypoxic respiratory failure ? Currently on her home 3 L ? Continue with her home inhalers 4. DM2 ? Insulin ? Accu-Cheks ? Will monitor make adjustments as necessary 5. Anxiety/depression/bipolar ? Stable ? Continue with her home medications 6. GERD ? Stable ? Continue with PPI DVT: Heparin Charges/Coding Visit Charges Inpatient E&M: 03687 Init Hosp L2
[2025-11-10] MEDS: Budesonide Respules 0.5 MG/2 ML AMPUL.NEB. INHALATION ×2 (06:40→20:15)
[2025-11-10] MEDS: Albuterol 2.5 MG/3 ML VIAL.NEB. INHALATION ×3 (06:40→20:15)
[2025-11-10] MEDS: Heparin Injection (Vial) 5,000 UNIT/ML VIAL 5000 UNIT SC ×3 (06:48→22:40)
[2025-11-10 07:39] LABS: Hematocrit 28.0 % (37-47); Hemoglobin 8.6 g/dL (12.0-15.0); Immature Granulocytes Count 0.020 X10^3/uL (0.0-0.0); Mean Corp Hgb Conc 30.7 g/dL (32-36); Mean Corpuscular Volume 93.3 fL (81-99); Mean Platelet Vol. 9.2 fl (6.2-12.0); NRBC Flagged by Analyzer 0 % (0-5); POSITIVE DIFFERENTIAL YES; Platelet Count 112 K/mm3 (150-450); RBC Distribution Width CV 13.6 % (11.6-14.6); RBC Distribution Width SD 46.5 fl (35.1-43.9); Red Blood Count 3.00 M/mm3 (4.2-5.4); White Blood Count 5.6 K/mm3 (4.4-11.0)
[2025-11-10 08:09] LABS: Anion Gap 7 (5-15); BUN 19 mg/dL (4-19); BUN/Creat Ratio 27.8 RATIO (10-20); Calcium,Total 8.7 mg/dL (7.6-11.0); Carbon Dioxide 32.8 mmol/L (21.0-32.0); Chloride 98 mmol/L (98-108); Estimated Creatinine Clearance 124.81 ml/min (50-250); Glucose 177 mg/dL (70-99); Potassium 4.5 mmol/L (3.3-5.1)
[2025-11-10] MEDS: 0.9% Saline Lock 10 ML Syringe IV ×2 (08:32→22:47)
--- NOTE | 2025-11-10 09:47 | PN.HOSP_ITS ---
Hospitalist Note Patient admitted early this morning for worsening weakness and debility and concern for UTI. Saw patient at bedside midmorning. Patient sitting in bedside chair comfortably and notes that she was able to walk further this morning than she could the past few days. On chart review, UA does appear consistent with infection and patient has history of ESBL UTI. Will escalate to IV meropenem today and pending urine culture results, will consider ID consult. Will follow- up PT/OT results as well. Full progress note to follow tomorrow.
[2025-11-10] MEDS: Meropenem 1 GM in 0.9% Normal Saline (100mL MB+) 100 ML IV ×2 (10:30→22:46)
[2025-11-10] MEDS: Lactobacillis Acidophilus 1 CAP PO (10:30)
[2025-11-10] MEDS: Fluticasone 0.05% 1 SPRAY NASAL.SRY NASAL ×2 (11:43→22:36)
[2025-11-10] MEDS: Insulin Glargine-YFGN 100 UNIT/ML Pen 50 UNIT SC ×2 (11:45→22:26)
[2025-11-10] MEDS: hydrOXYzine PAM 25 MG Capsule PO (11:58)
--- NOTE | 2025-11-10 11:59 | CASEMGMT ---
Social Work SW met w/pt in room, reviewed prior level of function and anticipated discharge plan. PCP: Dr. Wolf Specialists: Dr. Collins, hematology Preferred Pharmacy: [facility], [place] Insurance/Prescription Benefit: Medicaid Living Will/HCPOA: In [facility], sister Thania Cook is HCPOA LNOK: Father who is local, sister is in [place] Living Arrangements/Prior level of function: Pt lives home alone in an apartment, no steps to enter. Pt has aide services through [employer], as per pt has 6-10 hours per day. Pt states she can cook and clean and take care of herself but the aides to help her with her ADLs, including cooking, cleaning, showering. Pt states she sets up her own medications. Maria Elena Mcclellanjoon Mazake is her CM(SW called to verify services, Richa on vacation so verified w/covering CM Robinson Horn--pt has emergency alert, home delivered meals one per day--MOW, Aids through [facility], - 8 hours per day, F 6 hours per day). Pt states she has a nurse who comes in from [facility] as well for wound care. She states that [facility] set up C for PT/OT but she is not sure of the agency. Transportation: Father drives pt to [facility], he can give her a ride home when pt is d/c. DME: Walker, cane, raised toilet seat, bedside commode, O2 through [employer], 3LPM at rest and 5LPM w/exertion. HHC/SNF: Pt has been to [facility], just left on the . Pt has been to [facility]. Pt has had HHC before with [facility]. PLAN: Pt plans to return home w/resumption of HHC. SHIVA called [facility] to try to find out the C agency. SW spoke w/Pam. She states pt was getting a nurse through [facility], and she made a referral to [facility] for PT/OT, but never heard back. She is unsure of any wound care pt is getting. SHIVA called [facility]([phone]) to get a better understanding of any nursing services pt is receiving. SW spoke w/[employer], they provide aide services only. SHIVA spoke w/RN, pt has a small ulcer on her leg with a dry dressing that does not need nursing. SW will follow up /[facility] to see if they can take pt. SW will continue to follow. SANDRA Tatum
[2025-11-10] MEDS: Tolterodine Tartrate 4 MG CAP.SA PO (12:18)
[2025-11-10] MEDS: buPROPion (XL) 300 MG TABLET.XL PO (12:18)
--- NOTE | 2025-11-10 14:18 | CASEMGMT ---
Addendum entered by Isamar Pabon 11/10/25 16:21: In the event that [facility] cannot accept, alternate choices are [facility] and [facility]. Pt does not want [facility]. MADAN Key Original Note: [facility] is not in pt insurance network. A list of [facility] providers including quality and resource use data and consistent with the patient?s preferred geographic region, medical needs, and insurance network were provided from the [employer] Guide. Pt previously had [facility]; SW called [facility] to complete referral. MADAN Key
[2025-11-10] MEDS: VALBENAZINE TOSYLATE 40 MG CAPSULE PO (22:37)
[2025-11-11] VITALS (9 sets, daily range): BP systolic 97–128; BP diastolic 56–81; PULSE 60–75; RESP 15–18; TEMP 36.3–36.7; O2SAT 95–100
[2025-11-11 05:23] LABS: Hematocrit 28.3 % (37-47); Hemoglobin 8.7 g/dL (12.0-15.0); Mean Corp Hgb Conc 30.7 g/dL (32-36); Mean Corpuscular Volume 93.7 fL (81-99); Mean Platelet Vol. 9.6 fl (6.2-12.0); Platelet Count 109 K/mm3 (150-450); RBC Distribution Width CV 13.5 % (11.6-14.6); RBC Distribution Width SD 46.0 fl (35.1-43.9); Red Blood Count 3.02 M/mm3 (4.2-5.4); White Blood Count 3.9 K/mm3 (4.4-11.0)
[2025-11-11] MEDS: Meropenem 1 GM in 0.9% Normal Saline (100mL MB+) 100 ML IV ×3 (05:23→22:14)
[2025-11-11] MEDS: Heparin Injection (Vial) 5,000 UNIT/ML VIAL 5000 UNIT SC ×3 (05:24→22:54)
[2025-11-11 06:29] LABS: Anion Gap 6 (7-18); BUN 20 mg/dL (4-19); BUN/Creat Ratio 24.4 RATIO (10-20); Calcium,Total 8.8 mg/dL (7.6-11.0); Carbon Dioxide 35.1 mmol/L (20.0-29.0); Chloride 99 mmol/L (96-106); Estimated Creatinine Clearance 104.52 ml/min (50-250); Glucose 146 mg/dL (70-99); Potassium 4.3 mmol/L (3.5-5.1)
--- NOTE | 2025-11-11 07:49 | WOUNDNOTE ---
wound photo: left lower leg
[2025-11-11] MEDS: Albuterol 2.5 MG/3 ML VIAL.NEB. INHALATION ×3 (07:55→19:16)
[2025-11-11] MEDS: Budesonide Respules 0.5 MG/2 ML AMPUL.NEB. INHALATION ×2 (07:55→19:16)
[2025-11-11] MEDS: 0.9% Saline Lock 10 ML Syringe IV ×2 (08:06→12:14)
[2025-11-11] MEDS: Lactobacillis Acidophilus 1 CAP PO (08:56)
[2025-11-11] MEDS: Insulin Glargine-YFGN 100 UNIT/ML Pen 50 UNIT SC ×2 (08:56→22:53)
[2025-11-11] MEDS: buPROPion (XL) 300 MG TABLET.XL PO (08:56)
[2025-11-11] MEDS: Tolterodine Tartrate 4 MG CAP.SA PO (08:56)
[2025-11-11] MEDS: Fluticasone 0.05% 1 SPRAY NASAL.SRY NASAL ×2 (08:56→22:56)
--- NOTE | 2025-11-11 09:05 | CASEMGMT ---
Addendum entered by Nat Gtz 11/11/25 09:13: [facility] has declined d/t staffing. SW updated. Nat Gtz DC Planning Asst. Original Note: Discharge Planning HH referral sent via [facility] to [facility]. aNt Gtz DC Planning Asst.
--- NOTE | 2025-11-11 10:08 | CASEMGMT ---
Addendum entered by Isamar Pabon 11/11/25 11:00: [facility] accepted. SHIVA remains available to follow. MADAN Key Original Note: Social Work- SW received notice from [facility] that they are unable to accept referral. [facility] notfied of alternate choices. [facility] declined. [facility] pending. SHIVA remains available to follow. MADAN Key
--- NOTE | 2025-11-11 10:11 | CASEMGMT ---
Addendum entered by Nat Gtz 11/11/25 10:41: [facility] has accepted. SW updated. Original Note: Discharge Planning HH referral sent via [facility] to [facility]. Nat Gtz DC Planning Asst.
--- NOTE | 2025-11-11 15:47 | PCM.PN.HOSP ---
Reason for Visit Chief Complaint: Generalized weakness/debility Subjective Subjective Patient states she feels unsteady with trying to move around but it is better than prior to presentation. She states she does have chronic issues and uses a walker to ambulate at baseline. She states this is pretty typical when she has urinary tract infections. We discussed that her culture is still pending finalization which will drive her antibiotics at the time of discharge. She did complain of some mild nausea which is a chronic issue but a little bit worse today given her urinary tract infection and antibiotic use. Objective Data Objective Data Vital Signs: Vital Signs Temp Pulse Resp BP Pulse Ox O2 Del Method O2 Flow Rate 98.1 F 64 18 128/67 H 100 Nasal Cannula 3 11/11/25 14:00 11/11/25 14:00 11/11/25 14:00 11/11/25 14:00 11/11/25 14:00 11/11/25 14:00 11/11/25 14:00 Oxygen Flow Rate (L/min) 3 Oxygen Delivery Method Nasal Cannula Weight: 141.521 kg Body Mass Index (BMI) 51.9 Intake & Output: Intake and Output for Last 24 Hours 11/09/25 11/10/25 11/11/25 23:59 23:59 23:59 Intake Total 2100 / 2300 400 / 400 Output Total 100 / 200 250 / 250 Balance 1999 / 2099 150 / 150 Lab / Micro Data 11/11/25 04:22 11/11/25 04:22 Labs: Laboratory Results - last 24 hr 11/10/25 16:34: POC Glucose 120 H 11/10/25 22:23: POC Glucose 190 H 11/11/25 03:07: POC Glucose 152 H 11/11/25 04:22: WBC 3.9 L, RBC 3.02 L, Hgb 8.7 L, Hct 28.3 L, MCV 93.7, MCH 28.8, MCHC 30.7 L, RDW Std Deviation 46.0 H, RDW Coeff of Jocy 13.5, Plt Count 109 L, MPV 9.6, Sodium 141, Potassium 4.3, Chloride 99, Carbon Dioxide 35.1 H, Anion Gap 6 L, BUN 20 H, Creatinine 0.80, Estim Creat Clear Calc 104.52, Est GFR (MDRD) Non-Af 83, BUN/Creatinine Ratio 24.4 H, Glucose 146 H, Calcium 8.8 11/11/25 08:12: POC Glucose 172 H 11/11/25 10:45: POC Glucose 158 H Micro: Microbiology 11/09/25 23:41 Interface Orders Urine Culture - Preliminary 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 Rhythm Strip Rhythm Strip: Sinus Rhythm Rate: 75 Ectopy: None Physical Exam Const alert, oriented x3, no apparent distress and well nourished; Negative for average body habitus or healthy appearing Constitutional Narrative: Morbidly obese, white female, sitting up in a chair at the bedside, appears comfortable, does not look acutely toxic at this time, does appear older than stated age and chronically ill HEENT head/scalp atraumatic and moist oral mucous membranes HEENT Narrative: Mallampati 3-4, no thrush, dentition is poor Head and Scalp: normocephalic Resp normal respiratory effort, no retractions, no use of accessory muscles and clear to auscultation bilaterally Resp Narrative: Diffusely diminished but clear Auscultation: Negative for crackles, rhonchi or wheezes Cardio regular rate, regular rhythm, S1 normal heart sound, S2 normal heart sound, no murmurs, no rub, no gallops and no clicks Cardio Narrative: Distant heart tones due to body habitus GI normal to inspection, nondistended, normoactive bowel sounds, soft to palpation and non-tender GI Narrative: Protuberant abdomen Extremity no clubbing, cyanosis or edema Extremity Narrative: 2+ pedal pulses Neuro moves all extremities and no focal motor deficits Speech: speech normal Psych Negative for affect normal Psych Narrative: Affect is flat but patient makes good eye contact and interacts appropriately Assessment & Plan Assessment/Plan (1) Complicated UTI (urinary tract infection): (2) Generalized weakness: (3) Debility: PLAN: Plan Complicated UTI secondary to gram-negative 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 - Identification is pending - Continue antibiotics with meropenem - Patient does have history of ESBL UTIs - Hopeful for identification tomorrow with sensitivities - May need ID input if resistant organism present Generalized weakness/debility - Seems to be acute on chronic - Acute component likely related to acute infection - PT/OT is following and patient is doing too well to go to SNF at this time but plans are for discharge with home health care - Continue ongoing physical Occupational Therapy when patient is hospitalized Chronic diastolic HFpEF/essential hypertension/hyperlipidemia - Most recent echocardiogram 04/22/2025 showed EF of 65% with stage I diastolic dysfunction right ventricular systolic pressure of 57 mmHg - Suspect pulmonary hypertension complicates heart failure - Continue home nadolol - Continue home lisinopril Continue home baby aspirin Chronic hypoxic respiratory failure secondary to COPD - Baseline O2 requirements 3 L - Patient remains on baseline - Continue home medications as able - Continue aerosols - Encourage I-S History of gout - Continue home allopurinol DM-2 - Continue home insulin - SSI as ordered - Accu-Cheks as ordered - Continue modified diet Chronic constipation - Restart home lactulose as needed 40 twice daily GERD - Continue home PPI Depression/anxiety/schizoaffective disorder - Continue home medications ABRAM - Continue home CPAP Osteoarthritis/chronic pain - Continue home as needed pain medications History of migraines - Hold home triptan for now - March dose as needed if needed DVT prophylaxis - Continue subcu heparin 3 times daily CODE STATUS - Full code was verified at the time of admission Charges/Coding Visit Charges Inpatient E&M: 50518 Subs Hosp L2
--- NOTE | 2025-11-11 22:09 | CPS ---
pt rinsed mouth x 2
[2025-11-11] MEDS: VALBENAZINE TOSYLATE 40 MG CAPSULE PO (23:02)
--- NOTE | 2025-11-11 23:48 | PCM.HOSP.N ---
Hospitalist Note Pt overly sedated at HS med administration timing; BP 97/81 HR 64 nadolol held, also held HS Buspar, Ativan, and Lyrica doses.
[2025-11-12] VITALS (7 sets, daily range): BP systolic 100–148; BP diastolic 60–91; PULSE 61–75; RESP 16–18; TEMP 36.6–37.1; O2SAT 92–98
[2025-11-12] MEDS: Meropenem 1 GM in 0.9% Normal Saline (100mL MB+) 100 ML IV (05:50)
[2025-11-12 06:13] LABS: Hematocrit 29.5 % (37-47); Hemoglobin 9.0 g/dL (12.0-15.0); Immature Granulocytes Count 0.020 X10^3/uL (0.0-0.0); Mean Corp Hgb Conc 30.5 g/dL (32-36); Mean Corpuscular Volume 93.4 fL (81-99); Mean Platelet Vol. 10.3 fl (6.2-12.0); NRBC Flagged by Analyzer 0 % (0-5); Platelet Count 125 K/mm3 (150-450); RBC Distribution Width CV 13.4 % (11.6-14.6); RBC Distribution Width SD 46.0 fl (35.1-43.9); Red Blood Count 3.16 M/mm3 (4.2-5.4); White Blood Count 4.1 K/mm3 (4.4-11.0)
[2025-11-12] MEDS: Albuterol 2.5 MG/3 ML VIAL.NEB. INHALATION (06:38)
[2025-11-12] MEDS: Budesonide Respules 0.5 MG/2 ML AMPUL.NEB. INHALATION (06:38)
[2025-11-12 06:41] LABS: AST(SGOT) 15 U/L (<=31); Alanine Aminotransfer ALT/SGPT 14 U/L (<=34); Albumin, Serum 3.6 g/dL (3.4-4.8); Alkaline Phosphatase 47 U/L (35-104); Anion Gap 7 (7-18); BUN 20 mg/dL (4-19); BUN/Creat Ratio 25.5 RATIO (10-20); Calcium,Total 9.2 mg/dL (7.6-11.0); Carbon Dioxide 35.8 mmol/L (20.0-29.0); Chloride 97 mmol/L (96-106); Estimated Creatinine Clearance 108.60 ml/min (50-250); Globulin 2.7 g/dL (2.2-4.2); Glucose 111 mg/dL (70-99); Magnesium 1.7 mg/dL (1.5-2.2); Potassium 4.4 mmol/L (3.5-5.1)
[2025-11-12] MEDS: Heparin Injection (Vial) 5,000 UNIT/ML VIAL 5000 UNIT SC (06:51)
[2025-11-12] MEDS: hydrOXYzine PAM 25 MG Capsule PO (06:58)
[2025-11-12] MEDS: buPROPion (XL) 300 MG TABLET.XL PO (10:30)
[2025-11-12] MEDS: Lactobacillis Acidophilus 1 CAP PO (10:31)
[2025-11-12] MEDS: Fluticasone 0.05% 1 SPRAY NASAL.SRY NASAL (10:32)
[2025-11-12] MEDS: Insulin Glargine-YFGN 100 UNIT/ML Pen 50 UNIT SC (10:33)
[2025-11-12] MEDS: Tolterodine Tartrate 4 MG CAP.SA PO (10:33)
--- NOTE | 2025-11-12 10:53 | DS.PCM_ITS ---
Providers Date of Admission: 11/10/25 Primary Care Physician: Dr. Cristal Wolf MD Reason For Visit: WEAKNESS AND ?UTI Diagnosis Discharge Diagnosis (1) Generalized weakness: Status: Acute Code(s): R53.1 - Weakness (2) Acute UTI: Status: Acute Code(s): N39.0 - Urinary tract infection, site not specified Medications at Discharge Home Medications bupropion HCl 300 mg 24 hr tablet, extended release 300 mg PO DAILY mental health 03/05/17 albuterol sulfate 90 mcg/actuation aerosol inhaler 2 puff inhalation Q4H PRN Sob &/Or Wheezing 05/29/18 aspirin 81 mg chewable tablet 81 mg PO DAILY@0800 heart health 07/17/20 buspirone 10 mg tablet 20 mg PO TID mood 01/25/22 cetirizine 10 mg tablet (Zyrtec) 10 mg PO DAILY allergies 01/25/22 guaifenesin 600 mg tablet, extended release 12 hr (Mucinex) 1,200 mg PO BID PRN Cough 01/25/22 primidone 250 mg tablet 750 mg PO QHS seizures 01/25/22 fluticasone 500 mcg-salmeterol 50 mcg/dose blistr powdr for inhalation 1 inh inhalation BID breathing 05/02/22 omeprazole 40 mg capsule,delayed release 40 mg PO DAILY gerd 05/02/22 ergocalciferol (vitamin D2) 1,250 mcg (50,000 unit) capsule (Vitamin D2) 50,000 unit PO QMONTH bone health 08/10/22 pregabalin 150 mg capsule 150 mg PO TID pain 08/10/22 ondansetron 4 mg disintegrating tablet 4 mg PO Q8H PRN Nausea 10/03/24 trazodone 150 mg tablet 150 mg PO QHS sleep 10/03/24 albuterol sulfate 2.5 mg/3 mL (0.083 %) solution for nebulization 2.5 mg inhalation Q6H PRN shortness of breath or wheezing 02/25/25 escitalopram oxalate 20 mg tablet 20 mg PO DAILY MENTAL HEALTH 03/01/25 acetaminophen 500 mg tablet 1,000 mg PO TID PAIN 04/17/25 lisinopril 10 mg tablet 10 mg PO DAILY blood pressure 04/17/25 nadolol 80 mg tablet 40 mg PO BID high blood pressure 04/17/25 allopurinol 100 mg tablet 100 mg PO DAILY GOUT 04/21/25 OXYGEN - Supplemental ([facility] INFORMATIONAL USE ONLY) hypoxia 08/25/25 dicyclomine 20 mg tablet 20 mg PO TID IBS 08/25/25 hydrocodone 7.5 mg-acetaminophen 325 mg tablet 1 tab PO Q6H PRN pain 08/25/25 hydroxyzine pamoate 25 mg capsule 25 mg PO BID PRN itching/anxiety 08/25/25 lorazepam 1 mg tablet 1 mg PO BID ANXIETY 08/25/25 montelukast 10 mg tablet 10 mg PO QHS ALLERGIES 08/25/25 oxybutynin chloride 15 mg tablet,extended release 24 hr 15 mg PO DAILY BLADDER 08/25/25 benztropine 0.5 mg tablet 0.5 mg PO BID MUSCLE SPASMS 30 days #60 tabs 08/27/25 Lactobacillus acidophilus 0.5 mg (100 million cell) tablet 0.5 mg PO DAILY SUPPLEMENT 10/07/25 cholecalciferol (vitamin D3) 1,250 mcg (50,000 unit) capsule 1,250 mcg PO QWEEK SUPPLEMENT 10/07/25 ipratropium bromide 42 mcg (0.06 %) nasal spray 2 spray intranasal 4X/DAY PRN allergy symptoms 10/07/25 lactulose 10 gram/15 mL oral solution (Enulose) 40 g PO BID PRN constipation 10/07/25 lidocaine 4 % topical cream 1 applic topical DAILY PRN pain 10/07/25 loperamide 2 mg capsule 2 mg PO 4X/DAY PRN loose stool 10/07/25 naratriptan 2.5 mg tablet 2.5 mg PO PRN migraine 10/07/25 paliperidone palm (3 month) 819 mg/2.63 mL intramuscular syringe (Invega Trinza) 819 mg IM .EVERY 3 MONTH MOOD 10/07/25 semaglutide 0.25 mg or 0.5 mg (2 mg/3 mL) subcutaneous pen injector (Ozempic) 0.25 mg subcut QWEEK BLOOD SUGAR 10/07/25 tizanidine 4 mg tablet 4 mg PO BID PRN muscle spasticity 10/07/25 trospium 20 mg tablet 20 mg PO BID BLADDER 10/07/25 valbenazine 40 mg capsule (Ingrezza) 40 mg PO QHS 10/08/25 ciprofloxacin HCl 250 mg tablet 250 mg PO BID #4 tabs 11/12/25 insulin glargine 100 unit/mL (3 mL) subcutaneous pen (Lantus Solostar U-100 Insulin) 50 unit (0.5 mL) subcut BID #0 mL 11/12/25 insulin lispro 100 unit/mL subcutaneous pen (Humalog KwikPen (U-100) Insulin) 10 unit (0.1 mL) subcut TIDAC #0 mL 11/12/25 Hospital Course Operations None Procedures EKG and - (Chest x-ray) Summary of Care Provided Minutes Spent on Discharge: 38 Hospital Course: Mrs. Lang is a 60-year-old white female with complex past medical history who presents emergency department at [facility] on 11/10/2025 with chief complaint of weakness and debility. She reported that her symptoms started on the Monday prior to presentation and she was discharged about 4 days prior to that from her nursing facility for weakness and debility based on her previous admission here which was on 10/21/20202024. Patient does have frequent hospitalizations. Vital signs on presentation showed temperature of 98.1, heart rate 80, respiratory was 22, blood pressure was 122/99 and pulse ox was 96% on 3 L nasal cannula which is her baseline. CBC shows a chronic stable anemia and chronic stable thrombocytopenia with counts at 9.3 and 139 respectively. Chemistry panel was overtly unremarkable other than hyperglycemia with a blood sugar of 178. Patient is known diabetic. Differential did show a left shift with a 79.6% neutrophilia. Her urine was suggestive of infection showing nitrates leuk esterase, white cells, and 3+ bacteria. EKG and chest x-rays were unremarkable for acute findings. She was given a dose of Bactrim in the emergency department and given her weakness admission was requested. She was admitted to the medical floor and placed on meropenem due to history of ESBL producing organism in her urine and physical and Occupational Therapy were consulted. Urine culture resulted and showed a fairly pansensitive organism and E. coli. She has multiple allergies to medications and we originally got a talk about putting her on Keflex however she has hives with Ancef so we transition to ciprofloxacin. She will receive another 2 days of Cipro 250 mg twice daily to complete antibiotic course for urinary tract infection. She was seen by physical and Occupational Therapy and did too well to qualify to go back to skilled facility however it was felt that she would benefit from home health. Home health services have been set up and we will start after discharge. Prescription for the Cipro sent to local pharmacy. Her blood sugars were well- controlled on dose reduced insulin so we did decrease her Lantus from 75-50 twice daily because her fasting sugars were in the [id number] range and we decreased her prandial insulin to 10 units 3 times daily instead of 22 units 3 times daily. I suspect her hyperglycemia on presentation was likely related to acute infection. She will need flows close follow-up with the insulin change and have advised her to see her primary care physician within the next week. It is possible she may need up titration due to dietary differences while hospitalized compared to her home however to avoid hypoglycemic events the changes were made. She was advised to use her walker at all times to walk if she still felt somewhat unsteady but close to her baseline at the time of discharge and again therapy felt that she would benefit from ongoing therapy services with home health but did not qualify for skilled facility at this time. She was discharged home in stable condition on 11/12/2025. Discharge diagnoses: Complicated E. coli urinary tract infection Generalized weakness Debility Chronic HFpEF Essential hypertension Hyperlipidemia DM-2 Chronic hypoxic respiratory failure secondary to COPD Gout Chronic constipation GERD Anxiety Depression Schizoaffective disorder ABRAM Osteoarthritis Chronic pain History of migraines Chronic anemia Chronic thrombocytopenia Physical Exam Const alert, oriented x3, no apparent distress and well nourished; Negative for average body habitus or healthy appearing Constitutional Narrative: Morbidly obese, white female, sitting up in a chair at the bedside, appears comfortable, nontoxic appearing, appears older than stated age, chronically ill- appearing General Appearance: cooperative, comfortable, well kempt and well developed Exam Limitations: no limitations Nutritional Appearance: morbidly obese HEENT normocephalic, head/scalp atraumatic, hearing grossly normal bilaterally and moist oral mucous membranes HEENT Narrative: Mallampati 3, no thrush Eyes Eyes Narrative: Mild conjunctival pallor bilaterally, no scleral icterus Neck supple Neck Narrative: Neck is short and thick, trachea midline Resp normal respiratory effort, no retractions, no use of accessory muscles and clear to auscultation bilaterally Resp Narrative: Diffusely diminished but clear Auscultation: Negative for crackles, rhonchi or wheezes Cardio regular rate, regular rhythm, S1 normal heart sound, S2 normal heart sound, no murmurs, no rub, no gallops and no clicks Cardio Narrative: Distant heart tones due to body habitus GI normal to inspection, nondistended, normoactive bowel sounds, soft to palpation and non-tender GI Narrative: Protuberant abdomen Extremity no clubbing, cyanosis or edema Extremity Narrative: 2+ pedal pulses Skin no jaundice, no petechiae and no mottling Neuro moves all extremities and no focal motor deficits Neuro Narrative: Generalized weakness noted but no focal deficits Speech: speech normal Psych Negative for affect normal Psych Narrative: Affect is flat but patient makes good eye contact and interacts appropriately Weight / BMI Weight Weight: 141.521 kg Body Mass Index (BMI) 51.9 ABG / Lab / Microbiology Data 11/12/25 05:12 11/12/25 05:12 Laboratory: Laboratory Results - last 24 hr 11/11/25 10:45: POC Glucose 158 H 11/11/25 16:25: POC Glucose 132 H 11/11/25 22:13: POC Glucose 138 H 11/12/25 04:10: POC Glucose 125 H 11/12/25 05:12: WBC 4.1 L, RBC 3.16 L, Hgb 9.0 L, Hct 29.5 L, MCV 93.4, MCH 28.5, MCHC 30.5 L, RDW Std Deviation 46.0 H, RDW Coeff of Jocy 13.4, Plt Count 125 L, MPV 10.3, Immature Gran % (Auto) 0.500, Neut % (Auto) 75.0 H, Lymph % (Auto) 15.5 L, [place] % (Auto) 9.0, Eos % (Auto) 0.0, Baso % (Auto) 0.0, Absolute Neuts (auto) 3.1, Absolute Lymphs (auto) 0.64 L, Nucleated RBC % 0, Sodium 140, Potassium 4.4, Chloride 97, Carbon Dioxide 35.8 H, Anion Gap 7, BUN 20 H, Creatinine 0.77, Estim Creat Clear Calc 108.60, Est GFR (MDRD) Non-Af 87, B UN/Creatinine Ratio 25.5 H, Glucose 111 H, Calcium 9.2, Phosphorus 3.5, Magnesium 1.7, Total Bilirubin 0.17, AST 15, ALT 14, Alkaline Phosphatase 47, Total Protein 6.4, Albumin 3.6, Globulin 2.7, Albumin/Globulin Ratio 1.3 11/12/25 06:50: POC Glucose 99 Microbiology: Microbiology 11/09/25 23:41 Interface Orders Urine Culture - Final Escherichia coli D/C Instructions DC O2, CPAP, BIPAP Needs Home O2 Discharge instructions: Yes Type of respiratory needs?: Oxygen Oxygen frequency: Continuous Continuous oxygen liters per minute: 3 DC home with Oxygen: Yes Home O2 MD Review: I have reviewed the oxygen testing, and the patient qualifies for home oxygen equipment and portability. The patient is mobile in the home and the community. Patient's Goals Of Care - F/U Goals Reviewed Goals of care reviewed with patient: Yes - No change Meaningful Use Info Meaningful Use Meaningful Use Diagnoses (Choose all that apply): None applicable Discharge Plan Admission Admit Date/Time: 11/10/25 16:08 Primary Reason for Your Visit: Generalized weakness and debility Attending Provider: Shauna Jorgensen Primary Care Provider: Cristal Wolf Consulting Providers: Salinas Heard; Zane Munson Instructions Additional Instructions / Restrictions: 1. Your blood sugars were well-controlled with dose changes during her hospital stay. Those are reflected below in your discharge medications please note the change 2. Home health will continue to see you 3. Please use a walker at all times with ambulation Discharge Orders/Prescriptions Prescriptions: New insulin lispro [Humalog KwikPen Insulin] 100 unit/mL Insulin Pen 10 unit subcut TIDAC Qty: 0 0RF insulin glargine [Lantus Solostar U-100 Insulin] 100 unit/mL (3 mL) Insulin Pen 50 unit subcut BID Qty: 0 0RF ciprofloxacin HCl 250 mg tablet 250 mg PO BID Qty: 4 0RF Continued omeprazole 40 mg capsule,delayed release(DR/EC) 40 mg PO DAILY pregabalin 150 mg capsule 150 mg PO TID ergocalciferol (vitamin D2) [Vitamin D2] 1,250 mcg (50,000 unit) capsule 50,000 unit PO QMONTH acetaminophen 500 mg tablet 1,000 mg PO TID bupropion HCl 300 MG tablet extended release 24 hr 300 mg PO DAILY Patient Comments: DEPRESSION albuterol sulfate 1 INHALER inhaler 2 puff INHALATION Q4H PRN (Reason: Sob &/Or Wheezing) aspirin 81 MG tablet,chewable 81 mg PO DAILY@0800 0RF cetirizine [Zyrtec] 10 mg Tablet 10 mg PO DAILY primidone 250 mg Tablet 750 mg PO QHS buspirone 10 mg Tablet 20 mg PO TID guaifenesin [Mucinex] 600 mg Tablet Extended Release 12hr 1,200 mg PO BID PRN (Reason: Cough) fluticasone propion-salmeterol 500-50 mcg/dose blister with device 1 inh INHALATION BID ondansetron 4 MG tablet 4 mg PO Q8H PRN (Reason: Nausea) trazodone 150 mg tablet 150 mg PO QHS Patient Comments: pt states she takes 1/2tab lisinopril 10 mg tablet 10 mg PO DAILY Rx Instructions: do not take if blood pressure < 100/60 escitalopram oxalate 20 mg tablet 20 mg PO DAILY cholecalciferol (vitamin D3) 1,250 mcg (50,000 unit) capsule 1,250 mcg PO QWEEK Patient Comments: every monday Invega Trinza 819 mg/2.63 mL syringe 819 mg IM .EVERY 3 MONTH Patient Comments: LAST SHOT IN AUGUST. TAKES EVERY 3 MONTHS. NEXT SHOT IS DUE IN NOVEMBER Lactobacillus acidophilus 0.5 mg (100 million cell) tablet 0.5 mg PO DAILY lactulose [Enulose] 10 gram/15 mL solution 40 g PO BID PRN (Reason: constipation) lidocaine 4 % cream 1 applic topical DAILY PRN (Reason: pain) loperamide 2 mg capsule 2 mg PO 4X/DAY PRN (Reason: loose stool) Rx Instructions: can take up to 4 times a day if needed ipratropium bromide 42 mcg (0.06 %) spray,non-aerosol 2 spray intranasal 4X/DAY PRN (Reason: allergy symptoms) Rx Instructions: administer into each nostril naratriptan 2.5 mg tablet 2.5 mg PO PRN tizanidine 4 mg tablet 4 mg PO BID PRN (Reason: muscle spasticity) trospium 20 mg tablet 20 mg PO BID Ozempic 0.25 mg or 0.5 mg (2 mg/3 mL) pen injector 0.25 mg subcut QWEEK Patient Comments: PT TAKES ON TUESDAYS Rx Instructions: for 4 weeks Ingrezza 40 mg capsule 40 mg PO QHS Rx Instructions: pt has her own medication here albuterol sulfate 2.5 mg /3 mL (0.083 %) solution for nebulization 2.5 mg inhalation Q6H PRN (Reason: shortness of breath or wheezing) allopurinol 100 mg tablet 100 mg PO DAILY oxybutynin chloride 15 mg tablet extended release 24hr 15 mg PO DAILY dicyclomine 20 mg tablet 20 mg PO TID montelukast 10 mg tablet 10 mg PO QHS lorazepam 1 mg tablet 1 mg PO BID hydroxyzine pamoate 25 mg capsule 25 mg PO BID PRN (Reason: itching/anxiety) Rx Instructions: take 2-3 capsules by mouth twice daily as needed for itching/rash or anxiety hydrocodone-acetaminophen 7.5-325 mg tablet 1 tab PO Q6H PRN (Reason: pain) Patient Comments: PT STATES SHE TAKES ONCE DAILY Rx Instructions: up to 7 days OXYGEN - Supplemental ([facility] INFORMATIONAL USE ONLY) Patient Comments: home oxygen through [facility]. Verified 3L @ rest and 5L with exertion via NC-per CM pervious admissions note benztropine 0.5 mg Tablet 0.5 mg PO BID 30 Days Qty: 60 0RF nadolol 80 mg tablet 40 mg PO BID Discontinued insulin glargine U-300 conc [Toujeo Max U-300 SoloStar] 300 unit/mL (3 mL) insulin pen 75 unit SUBCUT BID Patient Comments: [NO ORIGINAL SIG] insulin lispro 100 unit/mL insulin pen 20 unit subcut ACHS 30 Days Qty: 15 0RF Patient Comments: PT STATES SHE ONLY TAKES WITH MEALS AND TAKES 22 UNITS FOR THE SUPPER DOSE Rx Instructions: Max daily insulin lispro 60 units Referrals / Follow Up: Cristal Wolf MD [Primary Care Provider, Internal Medicine] - Within 1 Week Referral Note: Please call the office to be seen hopefully within 1 week or at the first available time for hospital follow-up Disposition Disposition (needs filled in before D/C Order can be placed): Home Health Service Charges/Coding Visit Charges Inpatient E&M: 58441 Disch Hosp >30min
--- NOTE | 2025-11-12 11:27 | CASEMGMT ---
Discharge Planning DC Summary sent via [facility] to [facility]. Nat Gtz DC Planning Asst.
--- NOTE | 2025-11-12 11:56 | CASEMGMT ---
Social Work- updated [facility] that pt is d/c. [facility] Pt reports no additional needs at this time. Plan: Home with [facility]
== END 2025-11-12 13:33 | disposition home health service (06) | DRG 463 ==
LOC: ED 23:50 → MS3 11-10 01:30
PROVIDERS: Hospitalist; Admitting Provider Family Medicine; Emergency Provider Emergency Medicine; PCP Internal Medicine; Visit Provider Internal Medicine
DX: N39.0 Urinary tract infection, site not specified (principal); D69.6 Thrombocytopenia, unspecified; F25.9 Schizoaffective disorder, unspecified; E11.42 Type 2 diabetes mellitus with diabetic polyneuropathy; J96.11 Chronic respiratory failure with hypoxia; B96.20 Unspecified Escherichia coli [E. coli] as the cause of diseases classified elsewhere; I50.32 Chronic diastolic (congestive) heart failure; J44.9 Chronic obstructive pulmonary disease, unspecified; I11.0 Hypertensive heart disease with heart failure; D64.9 Anemia, unspecified; E11.51 Type 2 diabetes mellitus with diabetic peripheral angiopathy without gangrene; I45.10 Unspecified right bundle-branch block; K21.9 Gastro-esophageal reflux disease without esophagitis; E78.5 Hyperlipidemia, unspecified; Z79.4 Long term (current) use of insulin; K59.09 Other constipation; G47.33 Obstructive sleep apnea (adult) (pediatric); F41.9 Anxiety disorder, unspecified; I25.2 Old myocardial infarction; G89.29 Other chronic pain; F43.10 Post-traumatic stress disorder, unspecified; Z79.82 Long term (current) use of aspirin; R53.1 Weakness; Z90.710 Acquired absence of both cervix and uterus; Z79.899 Other long term (current) drug therapy; R53.81 Other malaise; Z79.01 Long term (current) use of anticoagulants; Z99.89 Dependence on other enabling machines and devices
CPT/HCPCS: 36415; 71045; 80048; 80053; 81001; 82962; 83735; 84100; 85025; 85027; 87077; 87086; 87088; 87186; 93005; 94640; 97162; 97166; 97535; 97802; 99285; J2185; A4216; J2405